=== PATIENT | female | born 1960 | race Caucasian/White ===

== ENCOUNTER 2022-09-08 10:53 | Outpatient (OUT) | payer OTHER, SELFPAY ==
--- NOTE | 2022-09-08 11:23 | XR_ITS ---
The [address] [address] Patient Name: SIXTO RICH MRN: [id number] date: 1960 Sex: F Assigned Patient Location: LAB Current Patient Location: LAB Accession/Order Number: [id number] Exam Date: 09/08/2022 11:25 Report Date: 09/09/2022 23:39 At the request of: SHAIKH CIARA Procedure: XR lumbar spine min 4V EXAM: XR lumbar spine min 4V HISTORY: LUMBAR STENOSIS COMPARISON: None. TECHNIQUE: 5 view study FINDINGS: Vertebral bodies are normal in height. There is disc space narrowing at L3-L4, L4-L5, and L5-S1. Mild disc space narrowing at L2-L3. Associated anterior osteophytosis at L5-S1. Facet arthropathy is noted at L3-L4, L4-L5, and L5-S1. Aortoiliac calcifications are noted. XR/XR lumbar spine min 4V IMPRESSION: Multilevel lumbar spondylosis. Electronically authenticated by: Penny EWING Date: 09/09/2022 23:39
[2022-09-08 13:11] LABS: Chol HDL Ratio 3.8; Cholesterol 144 mg/dL (<=200); HDL Cholesterol 38 mg/dL (40-60); Triglycerides 197 mg/dL (<=150); VLDL CHOLESTEROL 39.4 mg/dL
== END 2022-09-08 10:54 | disposition home or self-care (01) ==
PROVIDERS: PCP Internal Medicine; Visit Provider Internal Medicine
DX: E78.5 Hyperlipidemia, unspecified (principal); M48.062 Spinal stenosis, lumbar region with neurogenic claudication; M47.816 Spondylosis without myelopathy or radiculopathy, lumbar region
CPT/HCPCS: 36415; 72110; 80061

== ENCOUNTER 2023-01-19 10:48 | Outpatient (OUT) | payer OTHER, SELFPAY ==
[2023-01-19 11:26] LABS: Bilirubin Urine NEGATIVE (NEGATIVE); Blood Urine TRACE-L (NEGATIVE); Clarity Urine CLEAR (CLEAR); Color Urine LT. YELLOW (YELLOW); Glucose Urine UA NEGATIVE (NEGATIVE); Ketones Urine NEGATIVE (NEGATIVE); Leukocyte Esterase Urine TRACE (NEGATIVE); Nitrite Urine POSITIVE (NEGATIVE); Protein Urine NEGATIVE (NEG/TRACE); Specific Gravity Urine 1.015 (1.005-1.025); Urobilinogen Urine 0.2 EU/dL (0.2-1.0)
[2023-01-19 11:44] LABS: Creatinine Urine Random 61.18 mg/dL (20.00-300.00)
[2023-01-19 12:02] LABS: Basophils Absolute Auto 0.1 10^3/uL (0.0-0.1); Basophils Percent Auto 1.6 % (0.2-2.0); Eosinophils Absolute Auto 0.1 10^3/uL (0.0-0.7); Eosinophils Percent Auto 1.9 % (0.9-7.0); Hematocrit 48.7 % (36.0-48.0); Hemoglobin 15.9 g/dL (12.0-16.0); Immature Granulocytes Abs Auto 0.03 10^3/uL (0.00-0.03); Immature Granulocytes Pct Auto 0.4 % (0.0-0.5); Lymphocytes Absolute Auto 2.1 10^3/uL (1.2-3.8); Mean Corpuscular HGB Conc 32.6 g/dL (29.9-35.2); Mean Corpuscular Hemoglobin 30.5 pg (26.7-34.0); Mean Corpuscular Volume 93.3 fL (81.0-99.0); Mean Platelet Volume 10.3 fL (9.5-13.5); Monocytes Absolute Auto 0.6 10^3/uL (0.3-0.8); Monocytes Percent Auto 7.8 % (1.7-12.0); Neutrophils Absolute Auto 4.5 10^3/uL (1.4-6.5); Neutrophils Percent Auto 60.3 % (43.0-75.0); Platelet Count 216 10^3/uL (150-450); Red Blood Count 5.22 10^6/uL (4.20-5.40); Red Cell Distribution Width 13.3 % (11.0-15.0); White Blood Count 7.4 10^3/uL (4.0-11.0)
[2023-01-19 12:41] LABS: Albumin Level 3.9 g/dL (3.4-5.0); Calcium 9.5 mg/dL (8.5-10.1); Carbon Dioxide 24.3 mmol/L (21.0-32.0); Chloride 105 mmol/L (98-107); Estimated GFR (African America 47 (>=60); Estimated GFR (Non-African Ame 39 (>=60); Glucose 94 mg/dL (74-106); Magnesium 1.7 mg/dL (1.8-2.4); Phosphorus 3.3 mg/dL (2.6-4.7); Potassium 4.3 mmol/L (3.5-5.1); Sodium 142 mmol/L (136-145)
[2023-01-21 09:14] LABS: PTH, Intact 57 pg/mL (15-65)
== END 2023-01-19 10:49 | disposition home or self-care (01) ==
LOC: LAB 10:52
PROVIDERS: PCP Internal Medicine
DX: E55.9 Vitamin D deficiency, unspecified (principal); N17.9 Acute kidney failure, unspecified
CPT/HCPCS: 36415; 80048; 81003; 82042; 82043; 82306; 82570; 83735; 83970; 84100; 85025

== ENCOUNTER 2023-02-11 23:56 | Emergency (ER) | payer OTHER, SELFPAY ==
[2023-02-12] VITALS (41 sets, daily range): BP systolic 84–122; BP diastolic 63–88; PULSE 76–155; RESP 13–32; TEMP 36.7–36.8; O2SAT 87–99
--- NOTE | 2023-02-12 00:30 | ED.SOB1 ---
HPI - SOB/Dyspnea General Chief Complaint: Shortness of Breath/Dyspnea Stated Complaint: SOB Time Seen by Provider: 02/12/23 00:26 Source: patient Mode of arrival: Wheelchair Limitations: no limitations History of Present Illness HPI Narrative: history of COPD and CKD . seen at [facility] yesterday for shortness of breath. Now presents here complaining of shortness of breath. Denies chest pain but points to her epigastric area and states it feels tight when she has to cough. No vomiting . Cough productive of thick yellow-green phlegm . Arrives in the ER with shortness of breath and RA pulse ox 87% MD elicited complaint: shortness of breath and cough Pertinent past history: COPD Related Data Allergies Allergy/AdvReac Type Severity Reaction Status Date / Time codeine Allergy Verified 02/12/23 00:05 Review of Systems ROS Status of ROS 10 or more systems reviewed and unremarkable except as noted in history and below PFSH PFS Social History Smoking status: Current every day smoker Exam Constitutional Vital Signs, click to edit/add: Last Vital Signs Temp 98.1 F 02/12/23 03:56 Pulse 98 H 02/12/23 03:56 Resp 20 02/12/23 03:56 BP 122/72 02/12/23 03:56 Pulse Ox 94 L 02/12/23 03:56 O2 Del Method Nasal Cannula 02/12/23 02:07 O2 Flow Rate 3 02/12/23 02:07 Common normals: oriented x3 General appearance: in distress HENMT Common normals: normocephalic and head/scalp atraumatic Eye Common normals: PERRL, EOMs intact bilaterally and conjunctivae normal Respiratory Effort & inspection: respiratory distress and audible wheezes Cardio Common normals: regular rate and regular rhythm Rate: tachycardic GI Common normals: Normal to inspection, nondistended, normoactive bowel sounds present, soft to palpation and non-tender Extremity Common normals: normal to inspection and full ROM Neuro Common normals: oriented x3, CN's II-XII intact bilaterally, moves all extremities and no focal motor deficits Psych Appearance: grossly normal Course Vital Signs Vital signs: Vital Signs Temperature 98.2 F 02/12/23 00:02 Pulse Rate 102 H 02/12/23 00:02 Respiratory Rate 28 H 02/12/23 00:02 Blood Pressure 118/88 02/12/23 00:02 Pulse Oximetry 87 L 02/12/23 00:02 Oxygen Delivery Method Room Air 02/12/23 00:02 Temperature 98.1 F 02/12/23 03:56 Pulse Rate 98 H 02/12/23 03:56 Respiratory Rate 20 02/12/23 03:56 Blood Pressure 122/72 02/12/23 03:56 Pulse Oximetry 94 L 02/12/23 03:56 Oxygen Delivery Method Nasal Cannula 02/12/23 02:07 Oxygen Delivery Flow Rate 3 02/12/23 02:07 MDM - SOB/Dyspnea MDM Narrative Medical decision making narrative: patient history of COPD. still smoking. Seen at [facility] yesterday for acute dyspnea. Now presents here with acute dyspnea and pulse ox RA 87%. Chest with diffuse wheeze. Labs reveal elevated troponin. 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 nasal swab positive for Rhino/entero virus. Cxray with findings of COPD. Patient breathing a little easier after duoneb x 2 and solumedrol. EKG with mild ST depression II, III, aVF, V4-6. Discussed with Hospitalist at [facility] and patient accepted in transfer Lab Data Labs: Lab Results 02/12/23 02/12/23 Range/Units 00:39 01:20 WBC 13.9 H (4.0-11.0) 10^3/uL RBC 5.49 H (4.20-5.40) 10^6/uL Hgb 16.6 H (12.0-16.0) g/dL Hct 50.8 H (36.0-48.0) % MCV 92.5 (81.0-99.0) fL MCH 30.2 (26.7-34.0) pg MCHC 32.7 (29.9-35.2) g/dL RDW 13.4 (11.0-15.0) % Plt Count 260 (150-450) 10^3/uL MPV 9.7 (9.5-13.5) fL Neut % (Auto) 71.7 (43.0-75.0) % Lymph % (Auto) 15.7 L (20.5-60.0) % [place] % (Auto) 11.7 (1.7-12.0) % Eos % (Auto) 0.1 L (0.9-7.0) % Baso % (Auto) 0.4 (0.2-2.0) % Neut # (Auto) 10.0 H (1.4-6.5) 10^3/uL Lymph # (Auto) 2.2 (1.2-3.8) 10^3/uL [place] # (Auto) 1.6 H (0.3-0.8) 10^3/uL Eos # (Auto) 0.0 (0.0-0.7) 10^3/uL Baso # (Auto) 0.1 (0.0-0.1) 10^3/uL Abs Immat Gran (auto) 0.05 H (0.00-0.03) 10^3/uL Imm/Tot Granulo (auto) 0.4 (0.0-0.5) % Sodium 139 (136-145) mmol/L Potassium 4.7 (3.5-5.1) mmol/L Chloride 103 (98-107) mmol/L Carbon Dioxide 28.9 (21.0-32.0) mmol/L Anion Gap 11.8 BUN 29.0 H (7.0-18.0) mg/dL Creatinine 1.48 H (0.55-1.02) mg/dL Est GFR ( Amer) 44 L (>=60) Est GFR (Non-Af Amer) 36 L (>=60) BUN/Creatinine Ratio 19.6 Glucose 117 H (74-106) mg/dL Calcium 10.3 H (8.5-10.1) mg/dL Total Bilirubin 0.6 (0.2-1.0) mg/dL AST 30 (15-37) U/L ALT 32 (14-59) U/L Alkaline Phosphatase 81 (46-116) U/L Troponin I High Sens 87.4 H* (4.0-51.3) pg/mL Total Protein 7.9 (6.4-8.2) g/dL Albumin 3.9 (3.4-5.0) g/dL Globulin 4.0 g/dL Albumin/Globulin Ratio 1.0 Lipase 30.0 (16.0-77.0) U/L Adenovirus (PCR) Not detected (NOT DETECTE) C. pneumoniae DNA (PCR) Not detected (NOT DETECTE) Coronavirus Type OC43 Not detected (NOT DETECTE) Coronavirus Type HKU1 Not detected (NOT DETECTE) Coronavirus Type 229E Not detected (NOT DETECTE) Coronavirus Type NL63 Not detected (NOT DETECTE) Human Metapneumovir PCR Not detected (NOT DETECTE) M. pneumoniae (PCR) Not detected (NOT DETECTE) Parainfluenza PCR Not detected (NOT DETECTE) Parainfluenza 2 (PCR) Not detected (NOT DETECTE) Parainfluenza 3 (PCR) Not detected (NOT DETECTE) Parainfluenza 4 (PCR) Not detected (NOT DETECTE) RSV (RT-PCR) Not detected (NOT DETECTE) Entero/Rhino (PCR) Detected A (NOT DETECTE) SARS-CoV-2 (PCR) Not detected (NOT DETECTE) Bordetella pertussis (PCR) Not detected (NOT DETECTE) B parapertussis DNA PCR Not detected (NOT DETECTE) Influenza Type A (PCR) Not detected (NOT DETECTE) Influenza Type B (PCR) Not detected (NOT DETECTE) Imaging Data Chest x-ray: Radiologist's impression: /Order Number: [id number] Exam Date: 02/12/2023 01:01 Report Date: 02/12/2023 02:43 At the request of: ARI VICTORIA Procedure: XR chest 1V CHEST X-RAY, 1 VIEW HISTORY: Shortness of breath. COMPARISON: 02/19/2022. FINDINGS: The heart, kelly, and mediastinum are unremarkable. The lungs are grossly clear. The lungs are hyperinflated. There are no pleural effusions. There is no pneumothorax. XR/XR chest 1V IMPRESSION: No evidence of acute cardiopulmonary disease. Findings suggestive of COPD. Discharge Plan Discharge Chief Complaint: Shortness of Breath/Dyspnea Clinical Impression: Elevated troponin, Acute exacerbation of chronic obstructive pulmonary disease Patient Disposition: General Acute Hospital Discharge Location: [facility]
--- NOTE | 2023-02-12 00:34 | ECG_ITS ---
The [facility] Test Date: 2023-02-12 Pat Name: SIXTO RICH Department: Room: - Gender: Female [employer]: : 1960 Requested By: SHAIKH CIARA Order Number: [id number] Reading MD: DADA ORTEGA Measurements Intervals Wilsey Rate: 84 P: 73 WA: 134 QRS: 82 QRSD: 76 T: 65 QT: 392 QTc: 433 Interpretive Statements 1100 Sinus rhythm [address] depression, can't exclude inferolateral ischemia 9150 abnormal ECG No previous ECG available for comparison Electronically Signed On 02-12-2023 7:11:41 EST by DADA ORTEGA
--- NOTE | 2023-02-12 00:34 | XR_ITS ---
The [address] [address] Patient Name: SIXTO RICH MRN: [id number] date: 1960 Sex: F Assigned Patient Location: ER Current Patient Location: ER Accession/Order Number: [id number] Exam Date: 02/12/2023 01:01 Report Date: 02/12/2023 02:43 At the request of: ARI VICTORIA Procedure: XR chest 1V CHEST X-RAY, 1 VIEW HISTORY: Shortness of breath. COMPARISON: 02/19/2022. FINDINGS: The heart, kelly, and mediastinum are unremarkable. The lungs are grossly clear. The lungs are hyperinflated. There are no pleural effusions. There is no pneumothorax. XR/XR chest 1V IMPRESSION: No evidence of acute cardiopulmonary disease. Findings suggestive of COPD. Electronically authenticated by: YVONNE BARROW Date: 02/12/2023 02:43
[2023-02-12] MEDS: IPRATROPIUM/ALBUTEROL SULFATE 3 ML AMPUL.NEB IH ×2 (00:51→01:56)
[2023-02-12 00:57] LABS: Basophils Absolute Auto 0.1 10^3/uL (0.0-0.1); Basophils Percent Auto 0.4 % (0.2-2.0); Eosinophils Percent Auto 0.1 % (0.9-7.0); Hematocrit 50.8 % (36.0-48.0); Hemoglobin 16.6 g/dL (12.0-16.0); Immature Granulocytes Abs Auto 0.05 10^3/uL (0.00-0.03); Immature Granulocytes Pct Auto 0.4 % (0.0-0.5); Lymphocytes Absolute Auto 2.2 10^3/uL (1.2-3.8); Lymphocytes Percent Auto 15.7 % (20.5-60.0); Mean Corpuscular HGB Conc 32.7 g/dL (29.9-35.2); Mean Corpuscular Hemoglobin 30.2 pg (26.7-34.0); Mean Corpuscular Volume 92.5 fL (81.0-99.0); Mean Platelet Volume 9.7 fL (9.5-13.5); Monocytes Absolute Auto 1.6 10^3/uL (0.3-0.8); Monocytes Percent Auto 11.7 % (1.7-12.0); Neutrophils Percent Auto 71.7 % (43.0-75.0); Platelet Count 260 10^3/uL (150-450); Red Blood Count 5.49 10^6/uL (4.20-5.40); Red Cell Distribution Width 13.4 % (11.0-15.0); White Blood Count 13.9 10^3/uL (4.0-11.0)
[2023-02-12] MEDS: METHYLPREDNISOLONE SOD SUCC PF 125 MG/2 ML VIAL IVP (01:07)
[2023-02-12 01:22] LABS: Alanine Aminotransferase 32 U/L (14-59); Albumin Level 3.9 g/dL (3.4-5.0); Alkaline Phosphatase 81 U/L (46-116); Anion Gap 11.8; Aspartate Amino Transferase 30 U/L (15-37); BUN Creatinine Ratio 19.6; Bilirubin Total 0.6 mg/dL (0.2-1.0); Calcium 10.3 mg/dL (8.5-10.1); Carbon Dioxide 28.9 mmol/L (21.0-32.0); Chloride 103 mmol/L (98-107); Estimated GFR (African America 44 (>=60); Estimated GFR (Non-African Ame 36 (>=60); Glucose 117 mg/dL (74-106); Potassium 4.7 mmol/L (3.5-5.1); Sodium 139 mmol/L (136-145); Total Protein 7.9 g/dL (6.4-8.2)
[2023-02-12 01:25] LABS: Troponin I High Sensitivity 87.4 pg/mL (4.0-51.3)
[2023-02-12 01:26] LABS: Adenovirus NOT DETECTED (NOT DETECTE); Bordetella parapertussis NOT DETECTED (NOT DETECTE); Coronavirus 229E NOT DETECTED (NOT DETECTE); Coronavirus HKU1 NOT DETECTED (NOT DETECTE); Coronavirus NL63 NOT DETECTED (NOT DETECTE); Coronavirus OC43 NOT DETECTED (NOT DETECTE); Human Metapneumovirus NOT DETECTED (NOT DETECTE); Influenza A NOT DETECTED (NOT DETECTE); Influenza B NOT DETECTED (NOT DETECTE); Mycoplasma pneumoniae NOT DETECTED (NOT DETECTE); Parainfluenza Virus 1 NOT DETECTED (NOT DETECTE); Parainfluenza Virus 2 NOT DETECTED (NOT DETECTE); Parainfluenza Virus 3 NOT DETECTED (NOT DETECTE); Parainfluenza Virus 4 NOT DETECTED (NOT DETECTE); Respiratory Syncytial Virus NOT DETECTED (NOT DETECTE); SARS-CoV-2 NOT DETECTED (NOT DETECTE)
[2023-02-12 02:19] LABS: Human Rhinovirus/Enterovirus DETECTED (NOT DETECTE)
== END 2023-02-12 05:32 | disposition short-term general hospital (02) ==
PROVIDERS: Emergency Provider Internal Medicine; PCP Internal Medicine
DX: J44.1 Chronic obstructive pulmonary disease with (acute) exacerbation (principal); R79.89 Other specified abnormal findings of blood chemistry; F17.200 Nicotine dependence, unspecified, uncomplicated; B34.8 Other viral infections of unspecified site
CPT/HCPCS: 0202U; 36415; 71045; 80053; 83690; 84484; 85025; 87070; 93005; 94640; 96374; 99285; J2930

== ENCOUNTER 2023-02-19 17:56 | Outpatient (OUT) | payer OTHER, SELFPAY ==
--- OUTSIDE RECORDS SUMMARY | 2023-02-19 18:00 | XMS_ITS | CCD ---
Author Name Unknown Address [address] [place] [address] Organization [facility] Care Team Providers [facility] 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 Name Role Phone Unavailable Primary Care Provider Unavailabl e ALEXANDR AMIN S Referring Unavailable NO FAMILY, PHYSICIAN Primary Care Provider Unava ilMD Alaina Fernandez Admit Provider MD Marquez Beal Referring Provider DO Rober Wyatt Other Provider DO Ricky Reynoso Attending Provider [phone] [facility] Janet Attending Provider [phone] DARVIN Byrne Attending Provider Linn Byrne Unavailable Shaikh Thompson Unavailable Unavailable Unavailable MD Nick Thompson Primary Care Provider MD Marquez Beal Attending Provider Emigdio PINON, Dr. Marquez Jennings Referring Unavailable McGuinn II, Dr. Marquez Jennings Attending Unavailable McGuinn II, Dr. Marquez Jennings Referring Unavailable McGuinn II, Dr. Marquez Jennings Attending Unavailable McGuinn II, Marquez Jennings Attending Unav ailable McGuinn II, Marquez Jennings Attending Unav ailable Newman, Dr. Jaycob Armenta Referring Neelam vailable Newman, Dr. Jaycob Armenta Attending Neelam vailable McGuinn II, Marquez Jennings Attending Unav ailable McGuinn II, Marquez Jennings Attending Unav ailable McGuinn II, Marquez Jennings Referring Unav ailable McGuinn II, Marquez Jennings Attending Unav ailable McGuinn II, Marquez Jennings Referring Unav ailable McGuinn II, Marquez Jennings Attending Unav ailable McGuinn II, Marquez Jennings Attending Unav ailable McGuinn II, Marquez Jennings Referring Unav ailable McGuinn II, Marquez Jennings Attending Unav ailable MD Nick Thompson Primary Care Provider MD Kevyn Deras Attending Provider CHARLEE THOMPSONIKH Primary Care Physician Padmini Sam Unavailable Kevyn Deras Unavailable [phone] FAWWAD, DUNBAR H Admitting Unavailable FAWWAD, DUNBAR H Attending Unavailable FAWWAD, DUNBAR H Primary Care Unavailable FAWWAD, DUNBAR H Consulting Unavailable FAWWAD, DUNBAR H Admitting Unavailable FAWWAD, DUNBAR H Attending Unavailable FAWWAD, DUNBAR H Primary Care Unavailable SHERI, DR CHRISTIANO Young Consulting Unavailable FAWWAD, DUNBAR H Consulting Unavailable KARASIK ., DR PARK Admitting Unavailabl e KARASIK ., DR PARK Attending Unavailabl e FAWWAD, DUNBAR H Primary Care Unavailable KARASIK ., DR PARK Consulting Unavailabl e FAWWAD, DUNBAR H Admitting Unavailable FAWWAD, DUNBAR H Attending Unavailable FAWWAD, DUNBAR H Primary Care Unavailable EMIGDIO, DR SINGH Admitting Unavailable ANTONIOUINN, DR SINGH Attending Unavailable FASONIA, DUNBAR H Primary Care Unavailable GROVES ., DR JENNINGS Consulting Unavailable EMIGDIO, DR SINGH Consulting Unavailable ERNESTOD, DUNBAR H Primary Care Unavailable PAY ., DR ESCOBEDO Admitting Unavailable PAY ., DR ESCOBEDO Attending Unavailable PAY ., DR ESCOBEDO Consulting Unavailable AMY ROSS Consulting Unavailable JUWAN, DR CHRISTOPHER Young Admitting Unavailable JUWAN, DR CHRISTOPHER Young Attending Unavailable REQUEST, DR JOSE LISTED Primary Care Unavailkamini GUIDRY, DR CHRISTOPHER Young Consulting Unavailable GM ., DR CLEANING Consulting Unavailable GIOVANA MANN Consulting Unavailable FALVO, MAVIS Consulting Unavailable FAWWAD, DUNBAR H Admitting Unavailable FAWWAD, DUNBAR H Attending Unavailable FAWWAD, DUNBAR H Primary Care Unavailable FAWWAD, DUNBAR H Consulting Unavailable Fawdadad MD [facility] Primary Care Provider [phone] SHARAKOVA, DEBRA Referring Unavailable FAWWAD, DUNBAR Primary Care Unavailable SHARAKOVA, DEBRA Referring Unavailable FAWWAD, [facility] Primary Care Unavailable Unavailable Unavailable GUI, GURMEET Attending Unavailable FAWWAD, DUNBAR Primary Care Unavailable GUI, GURMEET Attending Unavailable FAWWAD, DUNBAR Referring Unavailable FAWWAD, DUNBAR Primary Care Unavailable FAWWAD, [facility] Primary Care Unavailable Damion Cheek Attending Unavailable Jaxson Johnson Attending Unavailable Jamie BILLS Attending Unavailable FAWWAD, DUNBAR Primary Care Unavailable FAWWAD, DUNBAR Referring Unavailable FAWWAD, [facility] Primary Care Unavailable NGUYỄNTRUDY GAINES E Attending Unavailable FAWNVD, [facility] Primary Care Unavailable NGUYỄN TRUDY E Attending Unavailable FAWWAD, [facility] Primary Care Unavailable FAWWAD, DUNBAR Primary Care Unavailable NGUYỄN TRUDY E Attending Unavailable NGUYỄN, TRUDY E Attending Unavailable FAWNVD, [facility] Primary Care Unavailable NGUYỄN, TRUDY E Attending Unavailable FAWWAD, [facility] Primary Care Unavailable NGUYỄN, TRUDY E Attending Unavailable FAWNVD, [facility] Primary Care Unavailable Bj TEJEDA Attending Unavailable FAWNVD, [facility] Primary Care Unavailable NGUYỄN, TRUDY E Attending Unavailable NGUYỄN, TRUDY E Attending Unavailable FAWWAD, [facility] Primary Care Unavailable Xavier STAFFORD Referring Unavailable Jaxson Johnson Admitting Unavailable Jaxson Johnson Attending Unavailable FAWNVD, DUNBAR Primary Care Unavailable Damion Cheek Admitting Unavailable Damion Cheek Attending Unavailable Gabby De Oliveira Attending Unavailable MD Charlee Thompsonikh Primary Care Provider MD Jacques East Admit Provider MD Jacques East Attending Provider Kevyn Deras Admitting UnavailKevyn Gold Attending UnavailShaikh Major Primary Care Unavailable Jacques East Admitting Unavailable Jacques East Attending Unavailable Shaikh Thompson Primary Care Unavailable Allergies Allergy Classification Reported Allergen(s) Allergy Type Date of Onset Reaction(s) Facility (18 sources) Codeine; Translations: [CODEINE] Drug Allergy 09-06-2014 Swelling, Swelling (finding) [facility] Medications Current Medications Medication Drug Class(es) Dates Sig (Normalized) Sig (Original) albuterol 0.83 mg/ml inhalation solution (19 sources) beta2-Adrenergic Agonist Start: 02-14-2023 take 2.5 mg by inhalation every three hours Albuterol Sulfate Active 2.5 MG INHALATION Q3H February 14, 2023 12:00am Start: 02-14-2023 Albuterol Sulf ate Active 1 INH INHALATION Q6H February 14, 2023 12:00am Start: 06-18-2022 VENTOLIN HFA 9 0 mcg/actuation inhaler Start: 04-05-2022 Pro-Air HFA CF C free 90 mcg/inh MDI Refill(s) 0 Start Date: 04/05/22 Status: Ordered amoxicillin 500 mg oral capsule (2 sources) Penicillin-class Antibacterial Start: 03-19-2022 take 1 capsule by mouth every eight hours Amoxicillin 500 MG 1 capsule Orally three times a day for 10 day(s) Feb, Active Aspirin (20 sources) Platelet Aggregation Inhibitor, Nonsteroidal Anti-inflammatory Drug Start: 04-05-2022 [facility] 81 MG TABLET [facility] ASP[facility]IN EC 81 MG TABLET Start Date: 04/05/22 Status: Ordered Start: 08-17-2021 take 81 mg by mouth once daily Aspirin Active 81 MG PO Daily August 16, 2021 11:00pm Comment on above: 81 mg. atorvastatin (20 sources) HMG-CoA Reductase Inhibitor Start: 05-23-2022 atorvastatin Oral, Daily Start Date: 05/23/22 Status: Ordered Start: 08-17-2021 take 40 mg by mouth once daily in the evening Atorvastatin Active 40 MG PO Every evening August 16, 2021 11:00pm cefdinir 300 mg oral capsule (4 sources) Cephalosporin Antibacterial Start: 02-14-2023 take 300 mg by mouth twice daily Cefdinir Active 300 MG PO Twice daily 11 22February 14, 2023 12:00am Start: 02-10-2023 End: 02-17-2023 take 1 capsule by mouth every twelve hours cefdinir 300 mg Cap 300 mg = 1 cap(s), Oral, q12hr, X 7 day(s), # 14 cap(s), Refills(s) 0, Pharmacy: [facility]/pharmacy #[id number], 163, cm, 02/10/23 14:52:00 EST, Height/Length Dosing, 70, kg, 02/10/23 14:52:00 EST, Weight Dosing Start Date: 02/10/23 Stop Date: 02/17/23 Status: Ordered cephalexin 500 mg oral capsule (7 sources) Cephalosporin Antibacterial Start: 10-15-2022 End: 10-22-2022 take 1 capsule by mouth three times daily Keflex 500 mg Cap 500 mg = 1 cap(s), Oral, TID, X 7 day(s), # 21 cap(s), Refills(s) 0, Pharmacy: [facility]/pharmacy #[id number], 163, cm, 10/15/22 17:40:00 EDT, Height/Length Dosing, 72.3, kg, 10/15/22 17:40:00 EDT, Weight Dosing Start Date: 10/15/22 Stop Date: 10/22/22 Status: Ordered Start: 08-17-2021 End: 03-13-2022 take 500 mg by mouth four times daily Cephalexin Discontinued 500 MG PO Four times daily 01 20August 16, 2021 11:00pm March 13, 2022 8:07am docusate sodium 100 mg oral capsule (1 source) Start: 02-14-2023 take 100 mg by mouth twice daily Docusate Sodium Active 100 MG PO Twice daily February 14, 2023 12:00am doxycycline hyclate 100 mg oral capsule (1 source) Tetracycline-class Drug Start: 02-14-2023 take 100 mg by mouth twice daily Doxycycline Hyclate Active 100 MG PO Twice daily 11 22February 14, 2023 12:00am fluticasone propionate 0.05 mg/actuat metered dose nasal spray (2 sources) Corticosteroid Start: 03-19-2022 take 2 spray(s) nasal route once daily Fluticasone Propionate 50 MCG/ACT 2 sprays Nasally Once a day for 14 day(s) Feb, Active 12 hr guaiFENesin 600 mg extended release oral tablet (1 source) Start: 02-14-2023 take 2 tablets by mouth twice daily, then take 1 tablet by mouth every twelve hours Guaifenesin (Mucinex) 600 mg Tablet Extended Release 12hr Active 1200 MG PO Twice daily February 14, 2023 12:00am lisinopril 20 mg oral tablet (20 sources) Angiotensin Converting Enzyme Inhibitor Start: 02-12-2023 take 20 mg by mouth once daily Lisinopril Active 20 MG PO Daily February 12, 2023 12:00am Start: 10-09-2022 End: 10-04-2023 take 1 tablet by mouth once daily lisinopril (ZESTRIL) 5 mg tablet Indications: Stage 3 chronic kidney disease, unspecified whether stage 3a or 3b CKD (HCC) Take 1 tablet by mouth once daily. 90 tablet 3 10/09/2022 10/29/2022 Discontinued Start: 08-09-2022 End: 10-24-2023 take 1 tablet by mouth once daily lisinopril (ZESTRIL) 10 mg tablet Indications: Stage 3 chronic kidney disease, unspecified whether stage 3a or 3b CKD (HCC) Take 1 tablet by mouth once daily. 90 tablet 3 10/29/2022 10/24/2023 Active Start: 04-11-2022 lisinopril Ref ills(s) 0 Start Date: 04/11/22 Status: Ordered Lisinopril Activ e Comment on above: Take 1 tablet by starr once daily. 24 hr metoprolol succinate 100 mg extended release oral tablet (20 sources) beta-Adrenergic Mitch Start: 08-17-2021 take 100 mg by mouth once daily Metoprolol Succinate Active 100 MG PO Daily August 16, 2021 11:00pm Comment on above: Take 100 mg by mouth . omeprazole 40 mg delayed release oral capsule (13 sources) Proton Pump Inhibitor Start: 06-14-2022 take 1 capsule by mouth once daily omeprazole 40 mg Cap-DR 40 mg = 1 cap(s), Oral, Daily, # 30 cap(s), Refills(s) 2, Pharmacy: [facility] [id number], 163, cm, 06/14/22 13:00:00 EDT, Height/Length Dosing, 74.3, kg, 06/14/22 13:00:00 EDT, Weight Dosing Start Date: 06/14/22 Status: Ordered Start: 08-17-2021 End: 03-13-2022 take 20 mg by mouth once daily Omeprazole Discontinued 20 MG PO Daily August 16, 2021 11:00pm March 13, 2022 8:07am predniSONE 10 mg oral tablet (6 sources) Start: 02-14-2023 Prednisone Act jessica 10 MG PO As Directed February 14, 2023 12:00am see taper instructions Take 40 mg (4 tabs) for 3 days then Take 20 mg ( 2 tabs) for 3 days then Take 10 mg ( 1 tab) for 3 days to finish Start: 02-10-2023 End: 02-15-2023 take 3 tablets by mouth once daily predniSONE 20 mg Tab 60 mg = 3 tab(s), Oral, Daily, X 5 day(s), # 15 tab(s), Refills(s) 0, Pharmacy: [facility]/pharmacy #[id number], 163, cm, 02/10/23 14:52:00 EST, Height/Length Dosing, 70, kg, 02/10/23 14:52:00 EST, Weight Dosing Start Date: 02/10/23 Stop Date: 02/15/23 Status: Ordered Start: 03-19-2022 take 1 tablet by starr th every twelve hours predniSONE 20 MG 1 tablet Orally 2 times a day for 5 day(s) Feb, Active Completed/Discontinued Medications Medication Drug Class(es) Dates Sig (Normalized) Sig (Original) amLODIPine 10 mg oral tablet (16 sources) Dihydropyridine Calcium Channel Mitch Start: 2 End: 3 take 10 mg by mouth once daily Amlodipine Discontinued 10 MG PO Daily August 16, 2021 11:00pm March 13, 2022 8:07am cefTRIAXone (3 sources) Cephalosporin Antibacterial Start: 0 Rocephin 500 mg Jan, 500 mg hydroCHLOROthiazide 12.5 mg / lisinopril 10 mg oral tablet (13 sources) Thiazide Diuretic, Angiotensin Converting Enzyme Inhibitor Start: 3 End: 3 lisinopril-hydro CHLOROthiazide (ZESTORETIC) 10-12.5 mg per tablet lisinopril Refills(s) 0 Start Date: 04/11/22 Status: Ordered 0 04/11/2022 08/09/2022 Discontinued Start: 09-18-2021 End: 02-12-2023 take 1 tablet by mouth once daily Lisinopril-Hydrochlorothiazide Discontin ued 1 TAB PO Daily March 13, 2022 12:00am February 12, 2023 6:47am Comment on above: lisinopril Refills(s ) 0 Start Date: 04/11/22 Status: Ordered potassium chloride 10 meq extended release oral tablet (5 sources) Start: 08-18-19 End: 03-13-19 take 10 mEq by mouth twice daily Potassium Chloride Discontinued 10 MEQ PO Twice daily 14 August 16, 2021 11:00pm March 13, 2022 8:07am spironolactone 25 mg oral tablet (10 sources) Aldosterone Antagonist Start: 08-18-19 End: 03-13-19 take 25 mg by mouth once daily Spironolactone Discontinued 25 MG PO Daily 30 August 16, 2021 11:00pm March 13, 2022 8:08am Triamcinolone (3 sources) Corticosteroid Start: 07-31-19 15 KENALOG - 10 mg Jul, 60 mg Problems Active Problems Problem Classification Problem Date Documented Da te Episodic/Chronic Acute cerebrovascular disease (20 sources) Embolic stroke; Translations: [Cerebral infarction, unspecified] Onset: 2 Resolved: 3 08-16-2021 Chronic Chronic kidney disease (16 sources) Chronic kidney disease stage 3B ; Translations: [Stage 3b chronic kidney disease (HCC)] Onset: 3 Chronic Chronic kidney disease (4 sources) Chronic kidney disease; Translations: [Stage 3b chronic kidney disease (HCC)] Onset: 3 Chronic obstructive pulmonary disease and bronchiectasis (4 sources) Unspecified chronic bronchitis; Translations: [UNSPECIFIED CHRONIC BRONCHITIS] Onset: 3 Chronic Chronic obstructive pulmonary disease and bronchiectasis (2 sources) Bronchitis, not specified as acute or chronic; Translations: [Bronchitis] Onset: 3 Episodic Disorders of lipid metabolism (20 sources) Hyperlipidemia; Translations: [Hyperlipidemia, unspecified] Onset: 5 08-17-2021 Chronic Esophageal disorders (7 sources) Gastroesophageal reflux disease without esophagitis; Translations: [Gastro-esophageal reflux disease without esophagitis] Onset: 3 Chronic Essential hypertension (20 sources) Essential hypertension; Translations: [Essential (primary) hypertension] Onset: 2 Resolved: 3 08-17-2021 Chronic Genitourinary symptoms and ill-defined conditions (13 sources) Stress incontinence (female) (male); Translations: [Female stress incontinence] Onset: 3 Chronic Hypertension with complications and secondary hypertension (20 sources) Hypertensive urgency ; Translations: [Hypertensive urgency] Onset: 3 08-15-2021 Chronic Nephritis; nephrosis; renal sclerosis (8 sources) Atrophy of kidney; 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)] Onset: 3 10-09-2022 Chronic Nonspecific chest pain (12 sources) Chest discomfort; Translations: [Other chest pain] Onset: 2 Episodic Other and unspecified benign neoplasm (4 sources) History of polyp of colon; Translations: [Personal history of colonic polyps] 03-13-2022 Episodic Other circulatory disease (7 sources) Orthostatic hypotension; Translations: [Orthostatic hypotension] Episodic Other circulatory disease (1 source) Orthostatic hypotension; Translations: [Orthostatic hypotension] Onset: 3 Episodic Other circulatory disease (1 source) Disorder of respiratory system; Translations: [Other specified symptoms and signs involving the circulatory and respiratory systems] Onset: 3 Episodic Other gastrointestinal disorders (14 sources) Dysphagia; Translations: [Dysphagia, unspecified] Onset: 3 Episodic Other hematologic conditions (14 sources) Raised cardiac enzyme or marker; Translations: [Other specified abnormalities of plasma proteins] 08-13-2021 Episodic Other lower respiratory disease (1 source) Hypoxemia; Translations: [Hypoxemia] Onset: 3 Episodic Other lower respiratory disease (1 source) Orthopnea; Translations: [Orthopnea] Onset: 3 Episodic Other lower respiratory disease (1 source) Dyspnea; Translations: [Shortness of breath] 02-12-2023 Episodic Other lower respiratory disease (1 source) Shortness of breath; Translations: [Shortness of breath] 02-14-2023 Episodic Other lower respiratory disease (1 source) Shortness of breath; Translations: [Shortness of breath] Onset: 3 Episodic Other nutritional; endocrine; and metabolic disorders (20 sources) Overweight in adulthood with body mass index of 25 or more but less than 30; Translations: [Overweight] Onset: 3 Resolved: 2 Episodic Other screening for suspected conditions (not mental disorders or infectious disease) (20 sources) Patient encounter status; Translations: [Encounter for screening mammogram for malignant neoplasm of breast] Onset: 7 Episodic Other upper respiratory infections (2 sources) Acute sinusitis, unspecified; Translations: [Acute pharyngitis, unspecified] Episodic Peripheral and visceral atherosclerosis (6 sources) Intermittent claudication; Translations: [Peripheral vascular disease, unspecified] Chronic Pneumonia (except that caused by tuberculosis or sexually transmitted disease) (3 sources) Community acquired pneumonia; Translations: [Pneumonia, unspecified organism] Onset: 3 02-12-2023 Episodic Residual codes; unclassified (5 sources) Delirium; Translations: [Disorientation, unspecified] 08-15-2021 Episodic Residual codes; unclassified (5 sources) Altered mental status; Translations: [Altered mental status, unspecified] 08-15-2021 Episodic Residual codes; unclassified (3 sources) Altered mental status, unspecified; Translations: [Altered mental status] Episodic Residual codes; unclassified (1 source) Tobacco use; Translations: [Tobacco abuse] Onset: 3 Episodic Respiratory failure; insufficiency; arrest (adult) (3 sources) Acute respiratory failure; Translations: [Acute respiratory failure with hypoxia] Onset: 3 02-12-2023 Episodic Substance-related disorders (20 sources) Nicotine dependence; Translations: [Nicotine dependence, unspecified, uncomplicated] Onset: 5 Resolved: 2 Chronic Comment on above: 2 CIGS DAILY; Added secondary to d ocumentation in Social History. Unclassified (7 sources) Patient encounter status 06-14-2022 Unclassified (2 sources) COUGH, UNSPECIFIED; Translations: [COUGH, UNSPECIFIED] Onset: 3 Unclassified (1 source) CONTACT W/AND (SUSP) EXPOS COVID-19; Translations: [CONTACT W/AND (SUSP) EXPOS COVID-19] Onset: 2 Unclassified (6 sources) History of endometrial ablation Onset: 6 10-15-2022 Unclassified (1 source) Encounter for screening for malignant neoplasm of colon; Translations: [Encounter for screening for malignant neoplasm of colon] Onset: 3 Urinary tract infections (12 sources) Pyelonephritis; Translations: [Tubulo-interstitial nephritis, not specified as acute or chronic] Onset: 2 08-13-2021 Episodic Past or Other Problems Problem Classification Problem Date Documented Date Episodic/Chronic Abdominal pain (4 sources) Right upper quadrant pain; Translations: [RIGHT UPPER QUADRANT PAIN] Onset: 08-13-2021 Episodic Conditions associated with dizziness or vertigo (1 source) Dizziness and giddiness; Translations: [DIZZINESS AND GIDDINESS] Onset: 08-16-2021 Episodic Fluid and electrolyte disorders (9 sources) Hypokalemia; Translations: [Alkalosis] Onset: 08-16-2021 Episodic Genitourinary symptoms and ill-defined conditions (9 sources) Increased frequency of urination; Translations: [Frequency of micturition] Onset: 08-16-2021 Episodic Immunizations and screening for infectious disease (1 source) Encounter for screening for human papillomavirus (HPV); Translations: [ENC SCREENING HUMAN PAPILLOMAVIRUS] Onset: 02-27-2022 Episodic Other and unspecified benign neoplasm (2 sources) Personal history of colonic polyps; Translations: [Personal history of colonic polyps] Onset: 03-13-2022 03-13-2022 Episodic Other hematologic conditions (6 sources) Other specified abnormalities of plasma proteins; Translations: [Other abnormal blood chemistry] Onset: 08-16-2021 Episodic Other hematologic conditions (13 sources) Erythrocytosis; Translations: [Secondary polycythemia] Onset: 03-14-2016 03-14-2016 Episodic Residual codes; unclassified (4 sources) Disorientation, unspecified; Translations: [Other alteration of consciousness] Onset: 08-16-2021 Episodic Residual codes; unclassified (1 source) Other specified personal risk factors, not elsewhere classified Onset: 08-23-2021 Resolved: 08-23-2021 Episodic Residual codes; unclassified (7 sources) History of endometrial ablation; Translations: [Other specified postprocedural states] Onset: 02-08-2016 02-08-2016 Episodic Residual codes; unclassified (12 sources) Tobacco user; Translations: [Tobacco use] Onset: 09-07-2014 10-09-2022 Episodic Screening and history of mental health and substance abuse codes (13 sources) Ex-smoker; Translations: [Personal history of tobacco use] Onset: 02-21-2022 10-15-2022 Episodic Comment on above: quit 2021; Outside Source Comme nt: Comment on above: quit 2021; Unclassified (10 sources) None (qualifier value) 11-16-2015 Unclassified (1 source) Cough R05.9 Unclassified (1 source) COUGH, UNSPECIFIED; Translations: [COUGH, UNSPECIFIED] Onset: 02-19-2022 Results Test Name Value Interpretation Reference Range Facility Basic Metabolic Panelon 01-19 Anion gap [Moles/Vol] 12.2 mmol/L Normal 6.0-15.0 [facility] Comment on above: Performed By: #### B MP, CBC #### [facility] [address] [place] [address] [place] Calcium [Mass/Vol] 9.4 mg/dL Normal 8.6-10.3 [facility] Comment on above: Performed By: #### B MP, CBC #### [facility] [address] [place] [address] [place] Chloride [Moles/Vol] 103 mmol/L Normal 98-107 [facility] Comment on above: Performed By: #### B MP, CBC #### [facility] [address] [place] [address] [place] CO2 [Moles/Vol] 26.2 mmol/L Normal 21.0-31.0 [facility] Comment on above: Performed By: #### B MP, CBC #### [facility] [address] [place] [address] [place] Creatinine [Mass/Vol] 1.35 mg/dL High 0.60-1.20 [facility] Comment on above: Performed By: #### B MP, CBC #### [place] [address] [place] Creatinine Clr Calc Pharmacy 40.59 [facility] Comment on above: Result Comment: PERF ORMED BY: [place] [address] PATHOLOGIST [employer] JERAMY CALDWELL M.D. Performed By: #### B MP, CBC #### [place] [address] [place] GFR/1.73 sq M.predicted MDRD (S/P/Bld) [Vol rate/Area] 44.991 mL/min/{1.73_m2} [facility] Comment on above: Performed By: #### B MP, CBC #### [address] Glucose [Mass/Vol] 136 mg/dL High 70-100 [facility] Comment on above: Result Comment: [place] Glucose Reference Range is dependent on time and content of last meal. Glucose of more than 200 mg/dL in a nonstressed, ambulatory subject supports the diagnosis of Diabetes Mellitus. ADA recommended reference range Performed By: #### B MP, CBC #### [place] [address] [place] Potassium [Moles/Vol] 5.4 mmol/L High 3.5-5.1 [facility] Comment on above: Performed By: #### B MP, CBC #### [place] [address] [place] Sodium [Moles/Vol] 136 mmol/L Normal 136-145 [facility] Comment on above: Performed By: #### B MP, CBC #### [place] [address] [place] Urea nitrogen [Mass/Vol] 33 mg/dL High 7-25 [facility] Comment on above: Performed By: #### B MP, CBC #### [facility] [address] [place] [address] [place] Basophils Auto (Bld) [#/Vol] Ordered By: Jacques Talbotomar on 02-14-2023 Basophils (Bld) [#/Vol] 0.0 10*3/uL 0.0-0.2 [facility] Basophils/100 WBC Auto (Bld) Ordered By: Obpatriciadaenrique Talbotomar on 02-14-2023 Basophils/100 WBC (Bld) 0.1 % . [facility] Calcium [Mass/volume] in Ser um or PlasmaOrdered By: Jacques East on 02-14-2023 Calcium [Mass/Vol] 9.4 mg/dL 8.6-10.3 [facility] [place] dioxide, total [Moles /volume] in Serum or PlasmaOrdered By: Jacques East on 02-14-2023 CO2 [Moles/Vol] 26.2 mmol/L 21.0-31.0 [facility] Chloride [Moles/volume] in S oralia or PlasmaOrdered By: Jacques East on 02-14-2023 Chloride [Moles/Vol] 103 mmol/L 98-107 [facility] Complete Blood Count Auto Di ffon 02-14-2023 Basophils (Bld) [#/Vol] 0.0 10*3/uL Normal 0.0-0.2 [facility] Comment on above: Result Comment: PERF ORMED BY: [place] [address] PATHOLOGIST [employer] JERAMY CALDWELL M.D. Performed By: #### B MP, CBC #### [facility] [address] [place] [address] [place] Basophils/100 WBC (Bld) 0.1 % Normal . [facility] Comment on above: Performed By: #### B MP, CBC #### [facility] [address] [place] [address] [place] Eosinophils (Bld) [#/Vol] 0.0 10*3/uL Normal 0.0-0.45 [facility] Comment on above: Performed By: #### B MP, CBC #### [address] Eosinophils/100 WBC (Bld) 0.0 % Normal . [facility] Comment on above: Performed By: #### B MP, CBC #### [address] Erythrocyte distribution width (RBC) [Ratio] 14.6 % Normal 11.9-15.3 [facility] Comment on above: Performed By: #### B MP, CBC #### [address] Hematocrit (Bld) [Volume fraction] 44.5 % Normal 34.0-46.4 [facility] Comment on above: Performed By: #### B MP, CBC #### [address] Hemoglobin (Bld) [Mass/Vol] 15.1 g/dL Normal 11.8-15.4 [facility] Comment on above: Performed By: #### B MP, CBC #### [address] Lymphocytes (Bld) [#/Vol] 1.0 10*3/uL Normal 1.00-4.8 [facility] Comment on above: Performed By: #### B MP, CBC #### [address] Lymphocytes/100 WBC (Bld) 7.6 % Normal . [facility] Comment on above: Performed By: #### B MP, CBC #### [address] MCH (RBC) [Entitic mass] 30.6 pg Normal 24.7-34.3 [facility] Comment on above: Performed By: #### B MP, CBC #### [address] MCV (RBC) [Entitic vol] 90.4 fL Normal 80-100 [facility] Comment on above: Performed By: #### B MP, CBC #### [facility] [address] Mean Corpuscular HGB Conc 33.9 g/dL Normal 32.0-35.0 [facility] Comment on above: Performed By: #### B MP, CBC #### [facility] [address] [place] [address] Monocytes (Bld) [#/Vol] 0.6 10*3/uL Normal 0.0-0.8 [facility] Comment on above: Performed By: #### B MP, CBC #### [address] Monocytes/100 WBC (Bld) 4.7 % Normal . [facility] Comment on above: Performed By: #### B MP, CBC #### [facility] [address] [place] [address] Neutrophils (Bld) [#/Vol] 11.1 10*3/uL High 1.8-7.7 [facility] Comment on above: Performed By: #### B MP, CBC #### [address] Neutrophils/100 WBC (Bld) 87.6 % Normal . [facility] Comment on above: Performed By: #### B MP, CBC #### [facility] [address] [place] [address] NRBC% 0.0 /100{WBC} Normal 0-0.5 [facility] Comment on above: Performed By: #### B MP, CBC #### [address] Platelet mean volume (Bld) [Entitic vol] 8.5 fL Normal 6.3-10.7 [facility] Comment on above: Performed By: #### B MP, CBC #### [place] [address] [place] Platelets (Bld) [#/Vol] 220 10*3/uL Normal 150-450 [facility] [place] Comment on above: Performed By: #### B MP, CBC #### [facility] [address] RBC (Bld) [#/Vol] 4.92 10*6/uL Normal 3.60-5.00 [facility] Comment on above: Performed By: #### B MP, CBC #### [facility] [address] WBC (Bld) [#/Vol] 12.7 10*3/uL High 3.8-11.6 [facility] Comment on above: Performed By: #### B MP, CBC #### [facility] [address] Creatinine [Mass/volume] in Serum or PlasmaOrdered By: Jacques East on 02-14-2023 Creatinine [Mass/Vol] 1.35 mg/dL 0.60-1.20 [facility] Eosinophils Auto (Bld) [#/Vo l]Ordered By: Obreinaldo Talbotomar on 02-14-2023 Eosinophils (Bld) [#/Vol] 0.0 10*3/uL 0.0-0.45 [facility] Eosinophils/100 WBC Auto (Bl d)Ordered By: Obpatriciadah Antioneomar on 02-14-2023 Eosinophils/100 WBC (Bld) 0.0 % . [facility] Erythrocyte distribution wid th Auto (RBC) [Ratio]Ordered By: Jacques Chirinosr on 02-14-2023 Erythrocyte distribution width (RBC) [Ratio] 14.6 % 11.9-15.3 [facility] Glucose [Mass/volume] in Ser um or PlasmaOrdered By: Obreinaldo Talbotomar on 02-14-2023 Glucose [Mass/Vol] 136 mg/dL 70-100 [facility] Comment on above: ADA recommended refe rence rangeRandom Glucose Reference Range is dependent on time and content of last meal. Glucose of more than 200 mg/dL in a nonstressed, ambulatory subject supports the diagnosis of Diabetes Mellitus. Hematocrit Auto (Bld) [Volum e fraction]Ordered By: Jacques East on 02-14-2023 Hematocrit (Bld) [Volume fraction] 44.5 % 34.0-46.4 [facility] Hemoglobin [Mass/volume] in BloodOrdered By: Jacques Chirinosr on 02-14-2023 Hemoglobin (Bld) [Mass/Vol] 15.1 g/dL 11.8-15.4 [facility] Leukocytes [#/volume] correc elliot for nucleated erythrocytes in Blood by Automated counOrdered By: Jacques East on 02-14-2023 WBC corrected for nucl RBC Auto (Bld) [#/Vol] 12.7 10*3/uL 3.8-11.6 [facility] Lymphocytes Auto (Bld) [#/Vo l]Ordered By: Jacques Chirinosr on 02-14-2023 Lymphocytes (Bld) [#/Vol] 1.0 10*3/uL 1.00-4.8 [facility] Lymphocytes/100 WBC Auto (Bl d)Ordered By: Jacques Chirinosr on 02-14-2023 Lymphocytes/100 WBC (Bld) 7.6 % . [facility] MCH Auto (RBC) [Entitic mass ]Ordered By: Jacques East on 02-14-2023 MCH (RBC) [Entitic mass] 30.6 pg 24.7-34.3 [facility] MCHC Auto (RBC) [Mass/Vol]Or dered By: Jacques East on 02-14-2023 MCHC (RBC) [Mass/Vol] 33.9 g/dL 32.0-35.0 [facility] MCV Auto (RBC) [Entitic vol] Ordered By: Jacques Talbotomar on 02-14-2023 MCV (RBC) [Entitic vol] 90.4 fL 80-100 [facility] Monocytes Auto (Bld) [#/Vol] Ordered By: Jacques Talbotomar on 02-14-2023 Monocytes (Bld) [#/Vol] 0.6 10*3/uL 0.0-0.8 [facility] Monocytes/100 WBC Auto (Bld) Ordered By: Jacques Chirinosr on 02-14-2023 Monocytes/100 WBC (Bld) 4.7 % . [facility] Neutrophils Auto (Bld) [#/Vo l]Ordered By: Obreinaldo Talbotomar on 02-14-2023 Neutrophils (Bld) [#/Vol] 11.1 10*3/uL 1.8-7.7 [facility] Neutrophils/100 WBC Auto (Bl d)Ordered By: Obpatriciadaenrique Talbotomar on 02-14-2023 Neutrophils/100 WBC (Bld) 87.6 % . [facility] No Panel InformationOrdered By: Obreinaldo Chirinosr on 02-14-2023 Estimated GFR (CKD-EPI) 44.991 mL/Min [facility] Pharmacy Creatinine Clearance (Chem 40.59 [facility] Nucleated erythrocytes [Pres ence] in Blood by Automated countOrdered By: Jacques Chirinosr on 02-14-2023 Nucleated RBC Auto Ql (Bld) 0.0 /100{WBC} 0-0.5 [facility] Platelet mean volume Auto (B ld) [Entitic vol]Ordered By: Obreinaldo Talbotomar on 02-14-2023 Platelet mean volume (Bld) [Entitic vol] 8.5 fL 6.3-10.7 [facility] Platelets Auto (Bld) [#/Vol] Ordered By: Jacques Talbotomar on 02-14-2023 Platelets (Bld) [#/Vol] 220 10*3/uL 150-450 [facility] Potassium [Moles/volume] in Serum or PlasmaOrdered By: Obpatriciadaenrique Talbotomar on 02-14-2023 Potassium [Moles/Vol] 5.4 mmol/L 3.5-5.1 [facility] RBC Auto (Bld) [#/Vol]Ordere d By: Obpatriciadah Antioneomar on 02-14-2023 RBC (Bld) [#/Vol] 4.92 10*6/uL 3.60-5.00 [facility] Serum or plasma anion gap de terminationOrdered By: Jaraddaenrique Talbotomar on 02-14-2023 Anion gap [Moles/Vol] 12.2 mmol/L 6.0-15.0 [facility] Sodium [Moles/volume] in Ser um or PlasmaOrdered By: Obpatriciadaenrique Talbotomar on 02-14-2023 Sodium [Moles/Vol] 136 mmol/L 136-145 [facility] Urea nitrogen [Mass/volume] in Serum or PlasmaOrdered By: Obpatriciadaenrique Talbotomar on 02-14-2023 Urea nitrogen [Mass/Vol] 33 mg/dL 7-25 [facility] WBC Auto (Bld) [#/Vol]Ordere d By: Obpatriciadah Daromar on 02-14-2023 WBC (Bld) [#/Vol] 12.7 10*3/uL 3.8-11.6 [facility] Alanine aminotransferase [En zymatic activity/volume] in Serum or PlasmaOrdered By: Obpatriciadaenrique Talbotomar on 02-13-2023 ALT [Catalytic activity/Vol] 16 U/L 7-52 [facility] Albumin [Mass/volume] in Ser um or Plasma by Bromocresol green (BCG) dye binding methoOrdered By: Obpatriciadaenrique Talbotomar on 02-13-2023 Albumin BCG dye [Mass/Vol] 4.0 g/dL 3.5-5.7 [facility] Alkaline phosphatase [Enzyma tic activity/volume] in Serum or PlasmaOrdered By: Obpatriciadaenrique Talbotomar on 02-13-2023 ALP [Catalytic activity/Vol] 57 U/L 34-104 [facility] Aspartate aminotransferase [ Enzymatic activity/volume] in Serum or PlasmaOrdered By: Obpatriciadah Daromar on 02-13-2023 AST [Catalytic activity/Vol] 22 U/L 13-39 [facility] Bilirubin.total [Mass/volume ] in Serum or PlasmaOrdered By: Obpatriciadah Antioneomar on 02-13-2023 Bilirubin [Mass/Vol] 0.6 mg/dL 0.3-1.0 [facility] Complete Blood Count Auto Di ffon 02-13-2023 Basophils (Bld) [#/Vol] 0.0 10*3/uL Normal 0.0-0.2 [facility] Comment on above: Result Comment: PERF ORMED BY: [place] [address] PATHOLOGIST [employer] JERAMY CALDWELL M.D. Performed By: #### M G, CMP, CBC #### [facility] [address] [place] [address] [place] Basophils/100 WBC (Bld) 0.2 % Normal . [facility] Comment on above: Performed By: #### M G, CMP, CBC #### [facility] [address] [place] [address] [place] Eosinophils (Bld) [#/Vol] 0.0 10*3/uL Normal 0.0-0.45 [facility] Comment on above: Performed By: #### M G, CMP, CBC #### [place] [address] [place] Eosinophils/100 WBC (Bld) 0.0 % Normal . [facility] Comment on above: Performed By: #### M G, CMP, CBC #### [facility] [address] [place] [address] Erythrocyte distribution width (RBC) [Ratio] 14.4 % Normal 11.9-15.3 [facility] Comment on above: Performed By: #### M G, CMP, CBC #### [facility] [address] [place] [address] [place] Hematocrit (Bld) [Volume fraction] 43.2 % Normal 34.0-46.4 [facility] Comment on above: Performed By: #### M G, CMP, CBC #### [facility] [address] [place] [address] [place] Hemoglobin (Bld) [Mass/Vol] 14.6 g/dL Normal 11.8-15.4 [facility] Comment on above: Performed By: #### M G, CMP, CBC #### [facility] [address] [place] [address] [place] Lymphocytes (Bld) [#/Vol] 2.7 10*3/uL Normal 1.00-4.8 [facility] Comment on above: Performed By: #### M G, CMP, CBC #### [facility] [address] [place] [address] [place] Lymphocytes/100 WBC (Bld) 18.3 % Normal . [facility] Comment on above: Performed By: #### M Devang, CMP, CBC #### [facility] [address] MCH (RBC) [Entitic mass] 30.5 pg Normal 24.7-34.3 [facility] Comment on above: Performed By: #### M Devang, CMP, CBC #### [facility] [address] MCV (RBC) [Entitic vol] 90.1 fL Normal 80-100 [facility] Comment on above: Performed By: #### Cheo Siddiqi, CMP, CBC #### [address] Mean Corpuscular HGB Conc 33.8 g/dL Normal 32.0-35.0 [facility] Comment on above: Performed By: #### Cheo Siddiqi, CMP, CBC #### [facility] [address] [place] [address] [place] Monocytes (Bld) [#/Vol] 1.2 10*3/uL High 0.0-0.8 [facility] Comment on above: Performed By: #### Cheo Siddiqi, CMP, CBC #### [place] [address] [place] Monocytes/100 WBC (Bld) 7.9 % Normal . [facility] Comment on above: Performed By: #### M Devang, CMP, CBC #### [facility] [address] [place] [address] [place] Neutrophils (Bld) [#/Vol] 11.0 10*3/uL High 1.8-7.7 [facility] Comment on above: Performed By: #### Cheo G, CMP, CBC #### [facility] [address] [place] [address] [place] Neutrophils/100 WBC (Bld) 73.6 % Normal . [facility] Comment on above: Performed By: #### Cheo Siddiqi, CMP, CBC #### [address] NRBC% 0.1 /100{WBC} Normal 0-0.5 [facility] Comment on above: Performed By: #### M G, CMP, CBC #### [address] Platelet mean volume (Bld) [Entitic vol] 7.8 fL Normal 6.3-10.7 [facility] Comment on above: Performed By: #### M G, CMP, CBC #### [address] Platelets (Bld) [#/Vol] 212 10*3/uL Normal 150-450 [facility] Comment on above: Performed By: #### M Devang, CMP, CBC #### [address] RBC (Bld) [#/Vol] 4.80 10*6/uL Normal 3.60-5.00 [facility] Comment on above: Performed By: #### M Devang, CMP, CBC #### [address] WBC (Bld) [#/Vol] 14.9 10*3/uL High 3.8-11.6 [facility] Comment on above: Performed By: #### M Devang, CMP, CBC #### [address] Comprehensive Metabolic Pane javier 02-13-2023 Albumin [Mass/Vol] 4.0 g/dL Normal 3.5-5.7 [facility] Comment on above: Performed By: #### M Devang, CMP, CBC #### [address] Albumin/Globulin [Mass ratio] 1.6 {ratio} Normal [facility] Comment on above: Performed By: #### M G, CMP, CBC #### [address] ALP [Catalytic activity/Vol] 57 U/L Normal 34-104 [facility] Comment on above: Performed By: #### M G, CMP, CBC #### [facility] [address] [place] [id number] [place] ALT [Catalytic activity/Vol] 16 U/L Normal 7-52 [facility] Comment on above: Performed By: #### M G, CMP, CBC #### [facility] [address] [place] [id number] [place] Anion gap [Moles/Vol] 9.4 mmol/L Normal 6.0-15.0 [facility] Comment on above: Performed By: #### M G, CMP, CBC #### [facility] [address] AST [Catalytic activity/Vol] 22 U/L Normal 13-39 [facility] Comment on above: Performed By: #### M G, CMP, CBC #### [facility] [address] Bilirubin [Mass/Vol] 0.6 mg/dL Normal 0.3-1.0 [facility] Comment on above: Performed By: #### M Devang, CMP, CBC #### [facility] [address] Calcium [Mass/Vol] 9.2 mg/dL Normal 8.6-10.3 [facility] Comment on above: Performed By: #### M Devang, CMP, CBC #### [facility] [address] [place] [id number] [place] Chloride [Moles/Vol] 105 mmol/L Normal 98-107 [facility] Comment on above: Performed By: #### M G, CMP, CBC #### [facility] [address] [place] [id number] [place] CO2 [Moles/Vol] 27.1 mmol/L Normal 21.0-31.0 [facility] Comment on above: Performed By: #### M G, CMP, CBC #### [facility] [address] [place] [id number] [place] Creatinine [Mass/Vol] 1.45 mg/dL High 0.60-1.20 [facility] Comment on above: Performed By: #### M Devang, CMP, CBC #### [facility] [address] [place] [address] [place] Creatinine Clr Calc Pharmacy 37.90 [facility] Comment on above: Performed By: #### Cheo Siddiqi, CMP, CBC #### [facility] [address] [place] [address] [place] GFR/1.73 sq M.predicted MDRD (S/P/Bld) [Vol rate/Area] 41.294 mL/min/{1.73_m2} [facility] Comment on above: Performed By: #### Cheo Siddiqi CMP, CBC #### [facility] [address] Globulin (S) [Mass/Vol] 2.5 g/dL [facility] Comment on above: Performed By: #### Cheo Siddiqi CMP, CBC #### [facility] [address] Glucose [Mass/Vol] 92 mg/dL Normal 70-100 [facility] Comment on above: Result Comment: [facility] Glucose Reference Range is dependent on time and content of last meal. Glucose of more than 200 mg/dL in a nonstressed, ambulatory subject supports the diagnosis of Diabetes Mellitus. ADA recommended reference range Performed By: #### Cheo Siddiqi CMP, CBC #### [facility] [address] [place] [address] [place] Potassium [Moles/Vol] 4.5 mmol/L Normal 3.5-5.1 [facility] Comment on above: Performed By: #### Cheo Siddiqi CMP, CBC #### [facility] [address] [place] [address] [place] Protein [Mass/Vol] 6.5 g/dL Normal 6.4-8.9 [facility] Comment on above: Performed By: #### Cheo Siddiqi CMP, CBC #### [facility] [address] [place] [id number] [facility] Sodium [Moles/Vol] 137 mmol/L Normal 136-145 [facility] Comment on above: Performed By: #### M Devang, CMP, CBC #### [facility] [address] Urea nitrogen [Mass/Vol] 28 mg/dL High 09-11 [facility] Comment on above: Performed By: #### M Devang, CMP, CBC #### [facility] [address] Globulin Calc (S) [Mass/Vol] Ordered By: Obaydah Daromar on 02-13-2023 Globulin (S) [Mass/Vol] 2.5 g/dL [facility] Magnesiumon 02-13-2023 Magnesium [Mass/Vol] 1.8 mg/dL Low 1.9-2.7 [facility] Comment on above: Result Comment: PERF ORMED BY: [place] [address] PATHOLOGIST [employer] JERAMY CALDWELL M.D. Performed By: #### M Devang, CMP, CBC #### [facility] [address] Magnesium [Mass/volume] in S oralia or PlasmaOrdered By: Obaydah Daromar on 02-13-2023 Magnesium [Mass/Vol] 1.8 mg/dL 1.9-2.7 [facility] Protein [Mass/volume] in Ser um or PlasmaOrdered By: Obaydah Daromar on 02-13-2023 Protein [Mass/Vol] 6.5 g/dL 6.4-8.9 [facility] Serum or plasma albumin/glob ulin mass ratioOrdered By: Obaydah Daromar on 02-13-2023 Albumin/Globulin [Mass ratio] 1.6 {ratio} [facility] Activated partial thrombopla stin time (aPTT) in platelet poor plasma by coagulation aOrdered By: Sally Valle on 02-12-2023 aPTT Coag (PPP) [Time] 25.6 s 25.1-36.5 [facility] Comment on above: A hematocrit value g reater than 55% may lead to inaccurate results in coagulation testing. Patients having hematocrit values >55% require a special collection tube for coagulation studies. Please contact the laboratory at [phone] for redraw instructions. Aerobic Cultureon 02-12-2023 Aerobic Culture Light Normal Respira tory Zoe 2 Days Gram Stain Result Rare Epithelial Cells 1+ White Blood Cells Rare Gram Positive Coccobacilli PERFORMED BY: [facility] [address] [place] [id number] PATHOLOGIST [employer] JERAMY CALDWELL M.D. Normal [facility] Comment on above: Performed By: #### B MP, CBC #### [facility] [address] [place] [address] Auth for Release of Medical Recordson 02-12-2023 Auth for Release of Medical Records [id number] Normal [facility] Automated erythrocytes count in urine sediment (number/area)Ordered By: Jacques Chirinosr on 02-12-2023 RBC Auto (Urine sed) [#/Area] 1-2 [HPF] 0-4 [facility] Automated leukocytes count i n urine sediment (number/area)Ordered By: Jacques Talbotomar on 02-12-2023 WBC Auto (Urine sed) [#/Area] 3-4 [HPF] 0-4 [facility] Bilirubin Test strip Ql (U)O rdered By: Jacques Chirinosr on 02-12-2023 Bilirubin Ql (U) Negative Negative [facility] C Urineon 02-12-2023 Bacteria identified Cx Nom (U) Microbiology PROCEDURE: Urine Culture [R1] SOURCE: U CleanCatch BODY SITE: COLLECTED DATE/TIME: 02/10/2023 14:48 EST RECEIVED DATE/TIME: 02/10/2023 17:04 EST START DATE/TIME: 02/10/2023 17:04 EST FREE TEXT SOURCE: Alex BRIDGES, Jaxson Weiss. Alex BRIDGES, Jaxson Weiss. FINAL REPORTS Final Report [] Verified Date/Time: 02/12/2023 09:10 EST >100,000 cfu/ml Escherichia coli SUSCEPTIBILITY RESULTS __ LEGEND: S=Susceptible, N/R=Not Reported, Blank=Data not available, or drug not advisable or tested, I=Intermediate, ESBL=Extended spectrum beta-lactamase, R=Resistant, TFG=Thymidine-dependent strain, WEST=Beta-lactamase positive, KATHIE=mcg/m;(mg/L), S*=Predicted susceptible interp, R*=Predicted resistant interp EC Antibiotic KATHIE Dilutn KATHIE Interp Amikacin <=16 S Ampicillin <=8 S Ampicillin/ <=8/4 S Sulbactam Aztreonam <=4 S Cefazolin <=2 S Cefepime <=2 S Cefoxitin <=8 S Ceftazidime <=1 S Ceftazidime/ <=8 S Avibactam Ceftriaxone <=1 S Ciprofloxacin <=1 S Ertapenem <=0.5 S Gentamicin <=4 S Levofloxacin <=2 S Meropenem <=1 S Nitrofurantoin <=32 S Piperacillin/ <=16 S Tazobactam Tetracycline <=4 S Tigecycline <=2 S Tobramycin <=4 S Trimethoprim/ <=2/38 S Sulfa Performing Locations R1: This test was performed at: [facility], [address] [place] [address], [id number] , , [facility] Comment on above: Performed By: #### [id number] #### [facility] [address] [place] [address] Coagulation Profileon 2022 aPTT Coag (Bld) [Time] 25.6 s Normal 25.1-36.5 [facility] Comment on above: Result Comment: A he matocrit value greater than 55% may lead to inaccurate results in coagulation testing. Patients having hematocrit values >55% require a special collection tube for coagulation studies. Please contact the laboratory at [phone] for redraw instructions. PERFORMED BY: [place] [address] PATHOLOGIST [employer] JERAMY CALDWELL M.D. Performed By: #### B MP, CBC #### [address] [address] [facility] INR Coag (PPP) [Relative time] 0.9 {INR} Normal [facility] Comment on above: Result Comment: INR Therapeutic Range A) Pre- and Peroperative OAT started two weeks before surgery. NOT HIP SURGERY: 1.5 - 2.5 HIP SURGERY: 2 - 3 B) Primary and secondary prevention of venous THROMBOSIS: 2 - 3 C) Active venous thrombosis, pulmonary embolism and prevention of recurrent venous thrombosis: 2 - 3 D) Prevention of arterial thromboembolism including patients with mechanical heart valves: 3 - 4.5 Performed By: #### B MP, CBC #### [facility] [address] [place] [address] [facility] PT Coag (PPP) [Time] 10.9 s Normal 9.0-12.9 [facility] Comment on above: Result Comment: A he matocrit value greater than 55% may lead to inaccurate results in coagulation testing. Patients having hematocrit values >55% require a special collection tube for coagulation studies. Please contact the laboratory at [phone] for redraw instructions. Performed By: #### B MP, CBC #### [address] [address] [place] Color Auto (U)Ordered By: Glenroy East on 02-12-2023 Color (U) Yellow Yellow [facility] Complete Blood Count Auto Di ffon 02-12-2023 Basophils (Bld) [#/Vol] 0.0 10*3/uL Normal 0.0-0.2 [facility] Comment on above: Result Comment: PERF ORMED BY: [place] [address] PATHOLOGIST [employer] JERAMY CALDWELL M.D. Performed By: #### C BC, PP, CMP #### [place] [address] [place] Basophils/100 WBC (Bld) 0.2 % Normal . [facility] Comment on above: Performed By: #### C BC, PP, CMP #### [address] Eosinophils (Bld) [#/Vol] 0.0 10*3/uL Normal 0.0-0.45 [facility] Comment on above: Performed By: #### C BC, PP, CMP #### [place] [address] [place] Eosinophils/100 WBC (Bld) 0.0 % Normal . [facility] Comment on above: Performed By: #### C BC, PP, CMP #### [address] Erythrocyte distribution width (RBC) [Ratio] 14.6 % Normal 11.9-15.3 [facility] Comment on above: Performed By: #### C BC, PP, CMP #### [place] [address] [place] Hematocrit (Bld) [Volume fraction] 46.1 % Normal 34.0-46.4 [facility] Comment on above: Performed By: #### C BC, PP, CMP #### [place] [address] [place] Hemoglobin (Bld) [Mass/Vol] 15.6 g/dL High 11.8-15.4 [facility] Comment on above: Performed By: #### C BC, PP, CMP #### [place] [address] [place] Lymphocytes (Bld) [#/Vol] 0.6 10*3/uL Low 1.00-4.8 [facility] Comment on above: Performed By: #### C JUANITA PP, CMP #### [address] Lymphocytes/100 WBC (Bld) 4.0 % Normal . [facility] Comment on above: Performed By: #### C JUANITA PP, CMP #### [address] MCH (RBC) [Entitic mass] 30.6 pg Normal 24.7-34.3 [facility] Comment on above: Performed By: #### C JUANITA PP, CMP #### [address] MCV (RBC) [Entitic vol] 90.6 fL Normal 80-100 [facility] Comment on above: Performed By: #### C JUANITA PP, CMP #### [address] Mean Corpuscular HGB Conc 33.8 g/dL Normal 32.0-35.0 [facility] Comment on above: Performed By: #### C JUANITA PP, CMP #### [address] Monocytes (Bld) [#/Vol] 0.3 10*3/uL Normal 0.0-0.8 [facility] Comment on above: Performed By: #### C JUANITA PP, CMP #### [address] Monocytes/100 WBC (Bld) 1.8 % Normal . [facility] Comment on above: Performed By: #### C JUANITA PP, CMP #### [address] Neutrophils (Bld) [#/Vol] 14.1 10*3/uL High 1.8-7.7 [facility] Comment on above: Performed By: #### C JUANITA PP, CMP #### [address] Neutrophils/100 WBC (Bld) 94.0 % Normal . [facility] Comment on above: Performed By: #### C JUANITA, PP, CMP #### [address] NRBC% 0.1 /100{WBC} Normal 0-0.5 [facility] Comment on above: Performed By: #### C BC, PP, CMP #### [address] Platelet mean volume (Bld) [Entitic vol] 7.9 fL Normal 6.3-10.7 [facility] Comment on above: Performed By: #### C JUANITA, PP, CMP #### [address] Platelets (Bld) [#/Vol] 236 10*3/uL Normal 150-450 [facility] Comment on above: Performed By: #### C JUANITA, PP, CMP #### [address] RBC (Bld) [#/Vol] 5.09 10*6/uL High 3.60-5.00 [facility] Comment on above: Performed By: #### C JUANITA, PP, CMP #### [address] WBC (Bld) [#/Vol] 15.0 10*3/uL High 3.8-11.6 [facility] Comment on above: Performed By: #### C BC, PP, CMP #### [address] Comprehensive Metabolic Pane javier 02-12-2023 Albumin [Mass/Vol] 4.6 g/dL Normal 3.5-5.7 [facility] Comment on above: Performed By: #### B MP, CBC #### [address] Albumin/Globulin [Mass ratio] 1.5 {ratio} Normal [facility] Comment on above: Performed By: #### B MP, CBC #### [facility] [address] ALP [Catalytic activity/Vol] 70 U/L Normal 34-104 [facility] Comment on above: Performed By: #### B MP, CBC #### [address] ALT [Catalytic activity/Vol] 19 U/L Normal 7-52 [facility] Comment on above: Performed By: #### B MP, CBC #### [address] Anion gap [Moles/Vol] Not performed Normal 6.0-15.0 [facility] Comment on above: Performed By: #### B MP, CBC #### [address] AST [Catalytic activity/Vol] 29 U/L Normal 13-39 [facility] Comment on above: Performed By: #### B MP, CBC #### [address] Bilirubin [Mass/Vol] 0.5 mg/dL Normal 0.3-1.0 [facility] Comment on above: Performed By: #### B MP, CBC #### [address] Calcium [Mass/Vol] 9.9 mg/dL Normal 8.6-10.3 [facility] Comment on above: Performed By: #### B MP, CBC #### [facility] [address] [place] [address] Chloride [Moles/Vol] 106 mmol/L Normal 98-107 [facility] Comment on above: Performed By: #### B MP, CBC #### [facility] [address] [place] [address] CO2 [Moles/Vol] 20.4 mmol/L Low 21.0-31.0 [facility] Comment on above: Performed By: #### B MP, CBC #### [facility] [address] [place] [address] Creatinine [Mass/Vol] 1.65 mg/dL High 0.60-1.20 [facility] Comment on above: Performed By: #### B MP, CBC #### [facility] [address] Creatinine Clr Calc Pharmacy 34.03 [facility] Comment on above: Result Comment: PERF ORMED BY: [place] [address] PATHOLOGIST [employer] JERAMY CALDWELL M.D. Performed By: #### B MP, CBC #### [facility] [address] GFR/1.73 sq M.predicted MDRD (S/P/Bld) [Vol rate/Area] 35.363 mL/min/{1.73_m2} [facility] Comment on above: Performed By: #### B MP, CBC #### [place] [address] [place] Globulin (S) [Mass/Vol] 3.1 g/dL [facility] Comment on above: Performed By: #### B MP, CBC #### [address] Glucose [Mass/Vol] 157 mg/dL High 70-100 [facility] Comment on above: Result Comment: [facility] Glucose Reference Range is dependent on time and content of last meal. Glucose of more than 200 mg/dL in a nonstressed, ambulatory subject supports the diagnosis of Diabetes Mellitus. ADA recommended reference range Performed By: #### B MP, CBC #### [facility] [address] Potassium Normal 3.5-5.1 [facility] Comment on above: Result Comment: Spec imen hemolyzed, redraw requested Performed By: #### B MP, CBC #### [facility] [address] Protein [Mass/Vol] 7.7 g/dL Normal 6.4-8.9 [facility] Comment on above: Performed By: #### B MP, CBC #### [facility] [address] [place] [id number] [place] Sodium [Moles/Vol] 140 mmol/L Normal 136-145 [facility] Comment on above: Performed By: #### B MP, CBC #### [facility] [address] [place] [address] [place] Urea nitrogen [Mass/Vol] 32 mg/dL High 09-11 [facility] Comment on above: Performed By: #### B MP, CBC #### [facility] [address] [place] [address] [place] Dipstick and Microscopicon 1 04-15-2022 Appearance (U) Clear Normal Clear [facility] Comment on above: Order Comment: Name Collection Type:: Clean-Voided Midstream Performed By: #### B MP, CBC #### [place] [address] [place] Bacteria,Urine None Seen Normal None Seen [facility] Comment on above: Order Comment: Name Collection Type:: Clean-Voided Midstream Performed By: #### B MP, CBC #### [facility] [address] [place] [address] [place] Bilirubin,Urine Negative Normal Negative [facility] Comment on above: Order Comment: Name Collection Type:: Clean-Voided Midstream Performed By: #### B MP, CBC #### [facility] [address] [place] [address] [place] Color (U) Yellow Normal Yellow [facility] Comment on above: Order Comment: Name Collection Type:: Clean-Voided Midstream Performed By: #### B MP, CBC #### [facility] [address] [place] [address] [place] Glucose Ql (U) Normal Normal Normal [facility] Comment on above: Order Comment: Name Collection Type:: Clean-Voided Midstream Performed By: #### B MP, CBC #### [facility] [address] [place] [id number] [place] Hyaline Casts,Urine 0-8 Normal 0-8 [facility] Comment on above: Order Comment: Name Collection Type:: Clean-Voided Midstream Result Comment: PERF ORMED BY: [place] [address] PATHOLOGIST [employer] JERAMY CALDWELL M.D. Performed By: #### B MP, CBC #### [address] Ketones Ql (U) Negative Normal Negative [facility] Comment on above: Order Comment: Name Collection Type:: Clean-Voided Midstream Performed By: #### B MP, CBC #### [address] Leukocyte esterase Test strip Ql (U) 1+ High Negative [facility] Comment on above: Order Comment: Name Collection Type:: Clean-Voided Midstream Performed By: #### B MP, CBC #### [address] Nitrite,Urine Negative Normal Negative [facility] Comment on above: Order Comment: Name Collection Type:: Clean-Voided Midstream Performed By: #### B MP, CBC #### [place] [address] [place] Occult Blood,Urine Negative Normal Negative [facility] Comment on above: Order Comment: Name Collection Type:: Clean-Voided Midstream Result Comment: PERF ORMED BY: [place] [address] PATHOLOGIST [employer] JERAMY CALDWELL M.D. Performed By: #### B MP, CBC #### [place] [address] [place] pH (U) 5.0 [pH] Normal 5.0-9.0 [facility] Comment on above: Order Comment: Name Collection Type:: Clean-Voided Midstream Performed By: #### B MP, CBC #### [place] [address] [place] Protein,Urine Negative Normal Negative [facility] Comment on above: Order Comment: Name Collection Type:: Clean-Voided Midstream Performed By: #### B MP, CBC #### [place] [address] [place] RBC,Urine 1-2 Normal 0-4 [facility] Comment on above: Order Comment: Name Collection Type:: Clean-Voided Midstream Performed By: #### B MP, CBC #### [facility] [address] [place] [address] Specificy Flushing,Urine 1.017 Normal 1.001-1.03 0 [facility] Comment on above: Order Comment: Name Collection Type:: Clean-Voided Midstream Performed By: #### B MP, CBC #### [facility] [address] Squamous Epithelial Cell,Urine 0-1 Normal 0-2 [facility] Comment on above: Order Comment: Name Collection Type:: Clean-Voided Midstream Performed By: #### B MP, CBC #### [address] Urobilinogen,Urine Normal Normal Normal [facility] Comment on above: Order Comment: Name Collection Type:: Clean-Voided Midstream Performed By: #### B MP, CBC #### [facility] [address] [place] [address] [place] WBC,Urine 3-4 Normal 0-4 [facility] Comment on above: Order Comment: Name Collection Type:: Clean-Voided Midstream Performed By: #### B MP, CBC #### [facility] [address] [place] [address] ECG 12 lead ECGon 02-12-2023 ECG 12 lead ECG [facility] [place] [address] [place] [address] Electrocardiograph Report Signed Patient: Deysi Hernandez MR#: [id number] : 1960 Acct:[id number] Age/Sex: 62 / F ADM Date: 02/12/23 Loc: Room: [address] [place] [address] Type: ADM IN Attending Dr: Jacques East MD Ordering Provider: Sally Valle MD Date of Service: 02/12/23 ECG/ECG 12 lead ECG: elevated trops Copies to: Test Reason : Blood Pressure : / mmHG Vent. Rate : 076 BPM Atrial Rate : 076 BPM P-R Int : 128 ms QRS Dur : 080 ms QT Int : 402 ms P-R-T Axes : 062 052 062 degrees QTc Int : 452 ms Normal sinus rhythm with sinus arrhythmia Nonspecific ST abnormality - consider inferolateral ischemia Abnormal ECG When compared with ECG of 14-AUG-2021 07:14, Non-specific change in ST segment in Inferior leads Nonspecific T wave abnormality no longer evident in Inferior leads T wave inversion no longer evident in Anterolateral leads QT has shortened Confirmed by BJ BAY DO ([id number]) on 02/13/2023 11:09:18 AM Referred By: Electronically Signed By:BJ BAY DO Transcribed By: MUS Signed By Bj Bay DO 02/13 1109 [facility] Gram Stainon 02-12-2023 Microscopic observation Gram stain Nom (Unsp spec) Gram Stain Result Rare Epithelial Cells 1+ White Blood Cells Rare Gram Positive Coccobacilli PERFORMED BY: [place] [address] PATHOLOGIST [employer] JERAMY CALDWELL M.D. [facility] Comment on above: Performed By: #### B MP, CBC #### [address] Gram stain for investigation of transfusion reactionOrdered By: Jacques East on 02-12-2023 Microscopic observation Gram stain Nom (Unsp spec) [facility] INR in Platelet poor plasma by Coagulation assayOrdered By: Sally Valle on 02-12-2023 INR Coag (PPP) [Relative time] 0.9 {INR} [facility] Comment on above: INR Therapeutic Rang e A) Pre- and Peroperative OAT started two weeks before surgery. NOT HIP SURGERY: 1.5 - 2.5 HIP SURGERY: 2 - 3B) Primary and secondary prevention of venous THROMBOSIS: 2 - 3C) Active venous thrombosis, pulmonary embolismand prevention of recurrent venous thrombosis: 2 - 3D) Prevention of arterial thromboembolismincluding patients with mechanical heart valves: 3 - 4.5 Ketones Auto test strip (U) [Mass/Vol]Ordered By: Jacques East on 02-12-2023 Ketones (U) [Mass/Vol] Negative Negative Fi [facility] - UrinalysisOrder ed By: Jacques East on 02-12-2023 Hyaline casts LM Ql (Urine sed) 0-8 [LPF] 0-8 [facility] Magnesiumon 02-12-2023 Magnesium [Mass/Vol] 1.8 mg/dL Low 1.9-2.7 [facility] Comment on above: Result Comment: PERF ORMED BY: [place] [id number] PATHOLOGIST [employer] JERAMY CALDWELL M.D. Performed By: #### M G #### [facility] [address] [place] [address] [facility] Nitrite Test strip Ql (U)Ord ered By: Jacques East on 02-12-2023 Nitrite Ql (U) Negative Negative [facility] Protein Auto test strip (U) [Mass/Vol]Ordered By: Jacques East on 02-12-2023 Protein (U) [Mass/Vol] Negative Negative [facility] Prothrombin time (PT)Ordered By: Sally Valle on 02-12-2023 PT Coag (PPP) [Time] 10.9 s 9.0-12.9 [facility] Comment on above: A hematocrit value g reater than 55% may lead to inaccurate results in coagulation testing. Patients having hematocrit values >55% require a special collection tube for coagulation studies. Please contact the laboratory at [phone] for redraw instructions. Redraw Potassiumon 3 Potassium [Moles/Vol] 4.4 mmol/L Normal 3.5-5.1 [facility] Comment on above: Order Comment: 1ST S pecimen hemolyzed, redraw requested Result Comment: PERF ORMED BY: [address] [id number] PATHOLOGIST [employer] JERAMY CALDWELL M.D. Performed By: #### B MP, CBC #### [facility] [address] [place] [address] Specific gravity Auto test s trip (U) [Rel density]Ordered By: Jacques East on 02-12-2023 Specific gravity (U) [Rel density] 1.017 1.001-1.03 0 [facility] Squamous epithelial cells de tection in urine sediment by light microscopyOrdered By: Jacques East on 02-12-2023 Epithelial cells.squamous LM Ql (Urine sed) 0-1 [HPF] 0-2 [facility] Troponin I High Sensitivityo n 02-12-2023 Troponin I High Sensitivity 43.8 pg/mL High 0.0-15.0 [facility] Comment on above: Result Comment: PERF ORMED BY: [place] [address] PATHOLOGIST [employer] JERAMY CALDWELL M.D. Performed By: #### H S TROP #### [facility] [address] [place] [address] Troponin I High Sensitivity 70.6 pg/mL Off scale high 0.0-15.0 [facility] Comment on above: Result Comment: Crit ical Result : Called to and read back by: BRANDON LEVINE at: 02/12/2023 08:07:31 by:LUCIANO PERFORMED BY: [place] [address] PATHOLOGIST [employer] JERAMY CALDWELL M.D. Performed By: #### H S TROP #### [facility] [address] [place] [address] Troponin I.cardiac [Mass/vol ume] in Serum or Plasma by Detection limit <= 0.01 ng/Ordered By: Sally Valle on 02-12-2023 Troponin I.cardiac DL <= 0.01 ng/mL [Mass/Vol] 43.8 pg/mL 0.0-15.0 [facility] Urine bacteria detection by automated methodOrdered By: Jacques East on 02-12-2023 Bacteria Auto Ql (U) None seen None Seen [facility] Urine clarity by refractomet ry automatedOrdered By: Jacques East on 02-12-2023 Clarity Refractometry automated (U) Clear Clear [facility] Urine glucose measurement by automated test strip (mass/volume)Ordered By: Jacques East on 02-12-2023 Glucose Auto test strip (U) [Mass/Vol] Normal mg/dL Normal [facility] Urine hemoglobin detection b y automated test stripOrdered By: Jacques East on 02-12-2023 Hemoglobin Auto test strip Ql (U) Negative Negative [facility] Urine leukocyte esterase det ection by automated test stripOrdered By: Jacques East on 02-12-2023 Leukocyte esterase Auto test strip Ql (U) 1+ Negative [facility] Urobilinogen Auto test strip (U) [Mass/Vol]Ordered By: Jacques East on 02-12-2023 Urobilinogen (U) [Mass/Vol] Normal mg/dL Normal [facility] XR chest 1V portableon 02-12 XR chest 1V portable [facility] [place] [address] XRay Report Signed Patient: Deysi Hernandez MR#: [id number] : 1960 Acct:[id number] Age/Sex: 62 / F ADM Date: 02/12/23 Loc: Room: [address] [place] [address] Type: ADM IN Attending Dr: Jacques East MD Copies to: Jacques East MD Ordering Provider: Jacques East MD Date of Service: 02/12/23 XR/XR chest 1V portable: r/o infiltrates Plain film chest Single view HISTORY: Shortness of breath COMPARISON: 02/12/23 FINDINGS: SUPPORT DEVICES: None POSTSURGICAL CHANGES: None HEART: Within normal limits PULMONARY KELLY: Within normal limits MEDIASTINUM: Atherosclerosis of thoracic aorta. LUNGS AND PLEURA: No acute lung process, pleural effusion or pneumothorax identified. Minor interstitial changes. BONY STRUCTURES: Intact ADDITIONAL FINDINGS None XR/XR chest 1V portable IMPRESSION: No acute process. Impression dictated by: Bj Ma M.D.02/12/2023 12:40 PM Dictation Location: [place] [address] Transcribed By: BRUCE 02/12/23 1240 Dictated By: Bj Ma DO 02/12/23 1237 Signed By: 02/12/23 1240 Normal [facility] pH Auto test strip (U)Ordere d By: Jacques East on 02-12-2023 pH (U) 5.0 [pH] 5.0-9.0 [facility] Ambulatory Visit Summaryon 1 04-13-2022 Ambulatory Visit Summary DEYSI HERNANDEZ :1960 Visit Date:02/10/2023 Ambulatory Visit Instructions Your Diagnosis Dysuria Tests Performed Urnls Dip Stick Auto w/o Microscopy POC [id number] Your Care Team Attending Physician - Alex BRIDGES, Jaxson W. Primary Care Physician - DONNA FINNEY, This Is Your Medications List Misc Prescription ([facility] ASPIRIN EC 81 MG TABLET) albuterol (Pro-Air HFA CFC free 90 mcg/inh MDI) atorvastatin lisinopril metoprolol (metoprolol 100 mg ER Tab) omeprazole (omeprazole 40 mg Cap-DR) Procedures Performed None. Discharge Vitals Temperature (Temporal Artery) 36 ?C Heart Rate (Peripheral) 88 Blood Pressure 140/90 Height 163 cm Height 64 in Weight 70 kg Weight 154 lb BMI 26.35 Medications What How Much When Why Instructions Unchanged albuterol (Pro-Air HFA CFC free 90 mcg/ inh MDI) Unchanged atorvastatin By Mouth Every day Unchanged lisinopril Unchanged metoprolol (metoprolol 100 mg ER Tab) 1 Tablets By Mouth Every day Unchanged Misc Prescription ([facility] ASPIRIN EC 81 MG TABLET) 0 Unchanged omeprazole (omeprazole 40 mg Cap-DR) 1 Capsules By Mouth Every day GERD (gastroesophageal reflux disease) Dysphagia Test Results Urnls Dip Stick Auto w/o Microscopy POC [id number] (02/10/2023) Bilirubin Urine Dipstick - Negative Blood Urine Dipstick - 2+ Moderate Glucose Urine Dipstick - Negative Ketones Urine Dipstick - Negative Leukocytes Urine Dipstick - 1+ Small Nitrite Urine Dipstick - Positive Protein Urine Dipstick - Negative Specific Flushing Urine Dipstick - 1.015 Urine Appearance Urine Dipstick - Slightly cloudy Urine Color Urine Dipstick - Yellow Urobilinogen Urine Dipstick - Normal 0.2-1 EU/dl pH Urine Dipstick - 5.5 Allergies codeine (Swelling, Unknown, swelling and itching) Problems Ongoing - Any problem that you are currently receiving treatment for. Alkalosis Atrophy of kidney Cardiac enzyme or marker above reference range Chronic kidney disease stage 3B. Dysphagia Dysphagia Erythrocytosis Ex-smoker Gastroesophageal reflux disease without esophagitis History of endometrial ablation Hyperlipidemia Hypertension Hypertensive renal disease Increased frequency of urination Mixed hyperlipidemia Orthostatic hypotension Screen for colon cancer Smoker Smoker Stress incontinence, female Tobacco user Historical - Any problem that you are no longer receiving treatment for. Embolic stroke Embolic stroke Essential hypertension None Patient Survey You may receive a survey via text or e-mail asking about your office visit. Please share your experience with us by completing your survey. We appreciate your feedback and thank you for choosing us for your care. Normal [facility] Auto Diffon 02-10-2023 Basophils/100 WBC (Bld) 1.3 % Normal 0.0-2.0 [facility] Comment on above: Order Comment: Order Added by Discern Expert. Performed By: #### 2 015210, 44389129, 03802124, 9672147, 5076179, 90797571, 40662440 ####[facility] [address] [place] [address] Basophils/Leukocytes Auto (Bld) [Pure # fraction] 0.1 E9/L Normal 0.0-0.2 [facility] Comment on above: Order Comment: Order Added by Discern Expert. Performed By: #### 2 940267, 77206859, 01891260, 1578408, 9450254, 73741900, 05310303 ####[facility] [address] [place] [address] Eosinophils/100 WBC (Bld) 1.5 % Normal 0.0-8.0 [facility] Comment on above: Order Comment: Order Added by Discern Expert. Performed By: #### 2 656721, 87227469, 91422225, 9559644, 3189962, 10848237, 86705178 ####[address] [place] [address] Eosinophils/Leukocytes Auto (Bld) [Pure # fraction] 0.1 E9/L Normal 0.0-0.5 [facility] Comment on above: Order Comment: Order Added by Discern Expert. Performed By: #### 2 323016, 52144840, 50456095, 5961897, 6200531, 54276267, 65191623 ####[address] [address] Lymphocytes/100 WBC (Bld) 16.8 % Normal 14.0-50.0 [facility] Comment on above: Order Comment: Order Added by Discern Expert. Performed By: #### 2 647646, 87459043, 71926683, 1155412, 0796524, 08393527, 11358456 ####[address] [address] Lymphocytes/Leukocytes Auto (Bld) [Pure # fraction] 1.6 E9/L Normal 1.0-4.0 [facility] Comment on above: Order Comment: Order Added by Discern Expert. Performed By: #### 2 111424, 27670886, 22832060, 3692520, 8070203, 85278854, 82956453 ####[address] [address] Monocytes/100 WBC (Bld) 9.8 % Normal 4.0-14.0 [facility] Comment on above: Order Comment: Order Added by Discern Expert. Performed By: #### 2 876560, 28089107, 25400489, 8213680, 9611169, 10493815, 58541615 ####[address] [address] Monocytes/Leukocytes Auto (Bld) [Pure # fraction] 0.9 E9/L Normal 0.2-1.0 [facility] Comment on above: Order Comment: Order Added by Discern Expert. Performed By: #### 2 478541, 74719562, 61202981, 6171931, 5577401, 19125492, 76647013 ####[facility] [address] [place] [address] Neutrophils/100 WBC (Bld) 70.6 % Normal 36.0-75.0 [facility] Comment on above: Order Comment: Order Added by Discern Expert. Performed By: #### 2 629909, 76749206, 36766279, 9494143, 7168699, 05429094, 42063968 ####[facility] [address] [place] [address] Neutrophils/Leukocytes Auto (Bld) [Pure # fraction] 6.7 E9/L Normal 2.0-7.5 [facility] Comment on above: Order Comment: Order Added by Discern Expert. Performed By: #### 2 601451, 64710365, 92225595, 8163173, 7139413, 79153755, 04178613 ####[address] [place] [address] BMPon 02-10-2023 Anion gap [Moles/Vol] 14 mmol/L Normal 6-16 [facility] Comment on above: Performed By: #### 2 236250, 87879884, 96180057, 3873673, 8690122, 76333505, 70681551 ####[address] [place] [address] BUN/Creat Ratio 12 No Units Normal 10-20 [facility] Comment on above: Performed By: #### 2 600499, 41989701, 39096734, 6964495, 9603503, 95144183, 14596203 ####[address] [place] [address] Calcium [Mass/Vol] 9.7 mg/dL Normal 8.9-11.1 [facility] Comment on above: Performed By: #### 2 362533, 73403672, 38613795, 4516041, 3090679, 23110559, 92268167 ####[address] [place] [address] Chloride [Moles/Vol] 107 mmol/L Normal 101-111 [facility] Comment on above: Performed By: #### 2 960026, 51980876, 48071820, 9695357, 1145406, 49693856, 39543548 ####[facility] [address] [place] [address] CO2 [Moles/Vol] 25 mmol/L Normal 21-31 [facility] Comment on above: Performed By: #### 2 448301, 45269575, 64696283, 2150717, 1095746, 15020002, 57518420 ####[facility] [address] [place] [address] Creatinine [Mass/Vol] 1.4 mg/dL High 0.5-1.3 [facility] Comment on above: Performed By: #### 2 319626, 86230655, 92750789, 2907226, 1096651, 46222504, 67684078 ####[facility] [address] [place] [address] Glucose [Mass/Vol] 84 mg/dL Normal 55-199 [facility] Comment on above: Performed By: #### 2 816345, 11353931, 24962289, 2083230, 0192451, 40417385, 49034293 ####[facility] [address] [place] [address] Potassium [Moles/Vol] 4.8 mmol/L Normal 3.5-5.3 [facility] Comment on above: Performed By: #### 2 521337, 21707157, 75896021, 5904114, 2849871, 09841501, 25410476 ####[facility] [address] [place] [address] Sodium [Moles/Vol] 141 mmol/L Normal 135-145 [facility] Comment on above: Performed By: #### 2 651095, 59892208, 61660260, 6837005, 9062221, 09962533, 25346768 ####[facility] [address] [place] [address] Urea nitrogen [Mass/Vol] 17 mg/dL Normal 5-21 [facility] Comment on above: Performed By: #### 2 177737, 57194940, 79873173, 4980069, 1383106, 13285867, 44030878 ####[facility] [address] [place] [address] BNPon 02-10-2023 Natriuretic peptide B (Bld) [Mass/Vol] 39 pg/mL Normal 5-80 [facility] Comment on above: Performed By: #### 2 627518, 31967155, 22608215, 1119725, 9703491, 37970816, 62458137 ####[facility] [address] [place] [address] CBC w/ Auto Diffon Erythrocyte distribution width (RBC) [Ratio] 14.4 % High 10.9-14.2 [facility] Comment on above: Performed By: #### 2 209711, 44558899, 07302249, 4114781, 1643211, 30179621, 17022073 ####[facility] [address] [place] [address] Hematocrit (Bld) [Volume fraction] 50.0 % High 34.0-46.0 [facility] Comment on above: Performed By: #### 2 950411, 53605425, 39256364, 9466001, 1227982, 82199209, 68689339 ####[facility] [address] [place] [address] Hemoglobin (Bld) [Mass/Vol] 16.8 g/dL High 12.0-16.0 [facility] Comment on above: Performed By: #### 2 652294, 41283451, 42440445, 4112659, 9483633, 01396490, 02290015 ####[facility] [address] [place] [address] MCH (RBC) [Entitic mass] 30.1 pg Normal 27.0-34.0 [facility] Comment on above: Performed By: #### 2 418740, 54766075, 21152661, 4976788, 0278756, 94525283, 03290449 ####[facility] [address] [place] [address] MCHC (RBC) [Mass/Vol] 33.7 g/dL Normal 31.4-36.0 [facility] Comment on above: Performed By: #### 2 105961, 56204682, 53146797, 7374126, 5548909, 38692505, 04375469 ####[address] MCV (RBC) [Entitic vol] 89.4 fL Normal 80.0-100.0 [facility] Comment on above: Performed By: #### 2 958052, 99336141, 05036344, 3584697, 7954538, 42593661, 32557107 ####[address] [address] Platelet mean volume (Bld) [Entitic vol] 8.0 fL Normal 6.4-10.8 [facility] Comment on above: Performed By: #### 2 002925, 84016393, 74474627, 0530868, 4383579, 80058180, 41360735 ####[address] [address] Platelets (Bld) [#/Vol] 202.0 E9/L Normal 150.0-500. 0 [facility] Comment on above: Performed By: #### 2 096704, 57810305, 13179168, 3072522, 3605443, 14733463, 52539134 ####[address] [address] RBC (Bld) [#/Vol] 5.6 E12/L Normal 4.3-5.9 [facility] Comment on above: Performed By: #### 2 560098, 90599837, 46023018, 9557493, 2833956, 69456713, 91164100 ####[facility] [address] [place] [address] WBC corrected for nucl RBC Auto (Bld) [#/Vol] 9.4 E9/L Normal 4.0-11.0 [facility] Comment on above: Performed By: #### 2 235222, 86679732, 22694407, 1926934, 4994864, 13418797, 37807248 ####[facility] [address] [place] [address] CHEMISTRYOrdered By: SYSTEM SYSTEM on 02-10-2023 Anion gap [Moles/Vol] 14 mmol/L Normal 6 - 16 mEq/L [facility] Calcium [Mass/Vol] 9.7 mg/dL Normal 8.9 - 11. 1 mg/dL [facility] Chloride [Moles/Vol] 107 mmol/L Normal 101 - 1 11 mmol/L [facility] CO2 [Moles/Vol] 25 mmol/L Normal 21 - 31 mmol/L [facility] Creatinine [Mass/Vol] 1.4 mg/dL High 0.5 - 1.3 mg/dL [facility] eGFR 43 mL/min/1.73 m2 Low >=59mL/min /1.73 m2 [facility] Glucose [Mass/Vol] 84 mg/dL Normal 55 - 199 mg/dL [facility] Potassium [Moles/Vol] 4.8 mmol/L Normal 3.5 - 5.3 mmol/L [facility] Sodium [Moles/Vol] 141 mmol/L Normal 135 - 145 mmol/L [facility] Troponin 5.80 pg/mL Low 10.10 - 27.10 pg/mL [facility] Comment on above: Interpretive Data: T he 95% CI (Confidence Interval) PPV (Positive Predictive Value) for myocardial infarction in females is 38 pg/mL, in males 51 pg/mL. The results should be used in conjunction with clinical conditions of myocardial infarction. (Access High Sensitivity Troponin I Instructions For Use, Kavita Ton, September 2017) Urea nitrogen [Mass/Vol] 17 mg/dL Normal 5 - 21 mg/dL [facility] Urea nitrogen/Creatinine [Mass ratio] 12 mg/mg Normal 10 - 20 [facility] CHEMISTRYOrdered By: Esteal Reyna on 02-10-2023 Natriuretic peptide B (Bld) [Mass/Vol] 39 pg/mL Normal 5 - 80 pg/mL [facility] HemeAudubonSS COAGULATIONOrdered By: Veronica Guidry on 02-10-2023 aPTT Coag (PPP) [Time] 29.2 s Normal 25.1 - 36.5 second(s) [facility] Auto Coag Comment on above: Interpretive Data: Kacey diallo 15 days - 4 weeks 1 - 5 months 6 - 11 months 1 - 5 years 6 - 10 years 11 - 17 years PTT Mean: 35.4 (27.6-45.6) Mean: 33.5 (24.8-40.7) Mean: 32.4 (25.1-40.7) Mean: 31.6 (24.0-39.2) Mean: 31.6 (26.9-38.7) Mean: 31.0 (24.6-38.4) Pediatric Reference ranges were obtained from a study by Matt Barrera et al. prepared from 1437 samples obtained at 7 different centers using the same coagulation reagent and instrumentation as [facility]. Currently there are no coagulation studies available worldwide for children to 14 days, and no normal ranges. Heparin therapeutic range (represented by Anti-Factor Xa activity of 0.2 - 0.4 U/mL) corresponds to PTT of 56.6 - 109.0 sec. INR Coag (PPP) [Relative time] 1.0 {INR} Invalid Interpretation Code [facility] Auto Co[facility] Comment on above: Interpretive Data: I NR results are specifically intended to assess patients stabilized on long-term Anticoagulation therapy suggested INR s Less Intensive Anticoagulation 2.0 3.0 Conventional Range 3.0 4.5 PT Coag (PPP) [Time] 11.6 s Normal 9.4 - 1 2.5 second(s) [facility] Auto Coag Comment on above: Interpretive Data: 1 5 days - 4 weeks 1 - 5 months 6 -11 months 1 5 years 6 10 years 11 -17 years Mean: 11.2 (9.5 12.6) Mean: 11.0 (9.7 12.8) Mean: 11.0 (9.8 13.0) Mean: 11.3 (9.9 13.4) Mean: 11.7 (10.0 14.6) Mean: 11.8 (10.0 - 14.1) Pediatric Reference ranges were obtained from a study by Matt Barrera et al. prepared from 1437 samples obtained at 7 different centers using the same coagulation reagent and instrumentation as [facility]. Currently there are no coagulation studies available worldwide for children to 14 days, and no normal ranges. Consent for Treatmenton 01-19 Consent for Treatment [id number] Normal [facility] Discharge Instructionson Discharge Instructions [id number] F Normal [facility] ED Clinical Summaryon 2022 ED Clinical Summary (Inserted Image. Neelam ble to display) [place] [id number] ED Clinical Summary Person Information Name: DEYSI HERNANDEZ Trav/[facility] Age: 62 Years : 1960 Sex: Female Language: Iranian PCP: SHAIKH THOMPSON MD Marital Status: Visit Id: Visit Reason: Urinary frequency; Cough; Shortness of breath; SOB Speciality: Acuity: 2 Enc Type: Emergency Med Service: Emergency Arrival: 02/10/2023 14:37:39 Discharge: 02/10/2023 17:12:01 LOS: 000 02:35 Checkin: 02/10/2023 14:37:39 Checkout: 02/10/2023 17:12:01 Dispo Type: Home (Routine DC) EVENTS: Event Name Event Status Request Date/Time Start Date/Time Complete Date/Time Arrive Complete 02/10/2023 14:37:39 02/10/2023 14:37:39 02/10/2023 14:37:39 Document Home Meds Request 02/10/2023 14:37:39 Triage Complete 02/10/2023 14:37:39 02/10/2023 14:52:54 02/10/2023 14:52:54 Bed Assign Complete 02/10/2023 14:40:34 02/10/2023 14:40:34 02/10/2023 14:40:34 Dr Exam Complete 02/10/2023 14:40:34 02/10/2023 15:00:19 02/10/2023 15:00:19 RN Exam Complete 02/10/2023 14:40:34 02/10/2023 15:10:29 02/10/2023 15:10:29 Registration Complete 02/10/2023 14:41:03 02/10/2023 14:41:03 02/10/2023 14:41:03 Reg Complete Request 02/10/2023 14:41:03 Reg Bed Request Complete 02/10/2023 14:41:03 02/10/2023 14:41:03 02/10/2023 14:41:03 EKG Complete 02/10/2023 14:46:55 02/10/2023 14:52:31 Registration Request 02/10/2023 15:00:19 Dr Exam Complete 02/10/2023 15:04:49 02/10/2023 15:04:49 02/10/2023 15:04:49 Pending Labs Request 02/10/2023 15:14:26 Lab Complete 02/10/2023 15:14:26 02/10/2023 15:50:55 Meds Admin Complete 02/10/2023 15:14:26 02/10/2023 15:28:53 Patient Care Request 02/10/2023 15:14:26 X-Ray Complete 02/10/2023 15:14:26 02/10/2023 15:33:31 02/10/2023 15:57:42 RT Request 02/10/2023 15:14:26 Swab Complete 02/10/2023 15:14:26 02/10/2023 15:50:55 RT Tx/ABG Request 02/10/2023 15:14:26 RT Tx/ABG Request 02/10/2023 15:14:27 Pending Labs Complete 02/10/2023 15:19:36 02/10/2023 15:19:36 02/10/2023 15:47:33 Lab Complete 02/10/2023 15:19:36 02/10/2023 15:19:36 02/10/2023 15:47:33 Pending Labs Complete 02/10/2023 15:28:19 02/10/2023 15:28:19 02/10/2023 15:28:26 Lab Complete 02/10/2023 15:28:19 02/10/2023 15:28:19 02/10/2023 15:28:26 Wet Read Request 02/10/2023 15:57:42 Meds Admin Request 02/10/2023 16:14:01 Meds Admin Cancel 02/10/2023 16:14:17 02/10/2023 16:15:17 Meds Admin Complete 02/10/2023 16:15:35 02/10/2023 17:03:27 Meds Admin Complete 02/10/2023 16:15:58 02/10/2023 17:03:28 Discharge Complete 02/10/2023 16:16:44 02/10/2023 17:12:09 02/10/2023 17:12:09 Transfer Complete 02/10/2023 17:12:09 02/10/2023 17:12:09 02/10/2023 17:12:09 ADDRESS: [address] [facility] [phone] PHYS DOC NOTES: MEDICAL INFORMATION: Prescriptions Given: New Medications [facility]/pharmacy #[id number], [address], [place] [id number], [phone] cefdinir (cefdinir 300 mg Cap) 1 Capsules By Mouth every 12 hours for 7 Days. Refills: 0. predniSONE (predniSONE 20 mg Tab) 3 Tablets By Mouth every day for 5 Days. Refills: 0. Medications to Continue with No Changes Other Medications albuterol (Pro-Air HFA CFC free 90 mcg/inh MDI) atorvastatin By Mouth every day. lisinopril metoprolol (metoprolol 100 mg ER Tab) 1 Tablets By Mouth every day. Misc Prescription ([facility] ASPIRIN EC 81 MG TABLET) 0. omeprazole (omeprazole 40 mg Cap-DR) 1 Capsules By Mouth every day. Refills: 2. PATIENT EDUCATION INFORMATION: Instructions: Urinary Tract Infection, Adult, [id number]; Acute Bronchitis, Adult Follow up: With: Address: When: SHAIKH DONNA [address] [place] [id number] [employer] (1) In 3 days 02/13/2023 Comments: Follow-up with your primary care provider in 3 to 5 days. If symptoms worsen, do not improve, or new symptoms arise please report back to emergency department for further evaluation. DIAGNOSIS: Bronchitis; UTI (urinary tract infection) Normal [facility] ED Note-Nursingon 02-10-2023 ED Note-Nursing EKG late due to vanessa ent being in the bathroom when called. Normal [facility] ED Note-Physicianon 02-11-20 ED Note-Physician Basic Information Time Seen: Raymundo BRIDGES, Keon Samuel. 02/10/2023 15:00 Chief Complaint Pt with hx of CKD presents with worsening SOB since yesterday. Denies lung hx, but has had recent bronchitis, no current meds for it. Cough with white frothy sputum. Dx with UTI at urgent care, but not given meds. History of Present Illness 62-year-old female reports to the emergency department with chief complaint of worsening shortness of breath. Reports that she does have a history of smoking. Has had bronchitis previously. Reports that she does smoke, but has no current diagnosis of possible COPD. States that she has been having little bit more of a sputum with this. Reports that she did go to urgent care before this, did diagnose her with a UTI. Reports not given any medications and sent over here. Reports otherwise she is not having any chest pain. Reports only on blood pressure medicines. Denies any blood thinner use. States that little bit worse with exertion with shortness of breath, but thinks it is likely either viral or because of her smoking. Denies any pains. Afebrile Review of Systems A 10 point review of systems is negative except as noted above. Medical and Surgical History: Reviewed and noted Social history: Lives at home Family History: Reviewed. Tobacco: user Physical Exam Vitals & Measurements T: 36.8 ?C(Oral) HR: 91(Monitored) RR: 20 BP: 173/89 SpO2: 94% HT: 163 cm WT: 70 kg BMI: 26.35 General: The patient appears well and in no apparent distress. Patient is resting comfortably on bed. Skin: Warm, dry, no pallor noted. Head: Normocephalic, atraumatic Neck: No JVD Eye: PERRLA, EOMI ENT: Moist mucus membranes Cardiovascular: Regular rate normal peripheral perfusion. Radial pulses +2 bilaterally Respiratory: No respiratory distress no accessory muscle use no obvious audible wheezing. Mild wheezing heard on the lung examination. Chest Wall: no deformity Musculoskeletal: normal ROM, no deformity, no swelling GI: No obvious distention soft nontender nondistended no guarding rebounding or rigidity Neurological: A&O moves all extremities equal strength and symmetry Psychiatric: Cooperative and appropriate Medical Decision Making MEDICAL DECISION MAKING Number and Complexity of Problems Differential Diagnosis: MDM Data External documents reviewed: [] My EKG interpretation: Reviewed My CT interpretation: [] My X-ray interpretation: Reviewed My Ultrasound interpretation: [] Decision rules/scores evaluated: [] Discussed with: [] Treatment and Disposition ED Course: 62-year-old female reports to the emergency department with chief complaint of shortness of breath, as well as UTI symptoms. Reports has been short of breath over the last couple days. Reports history of smoking. No known history of COPD, but reports that she does get bronchitis quite frequently. Denies any fevers or chills. Denies any chest pain with this. Physical exam of the patient reveals patient was resting comfortably in the bed, but does have mild to moderate wheezing on lung sounds examination. No belly tenderness. Reports that she has had increased frequency. Due to her concerns, we did do lab work, chest x-ray EKG is well. I was able to review her urine from the urgent care visit, and it did show nitrate positive UTI. Due to this, we will treat with antibiotics. Lab work was benign. She reports that she does have CKD, which is correlating with her creatinine and GFR. No other acute findings. Discussed likely a bronchitis as well as UTI. Due to this, patient started on cefdinir for appropriate coverage. Patient also started on prednisone for likely COPD/bronchitis workup and treatment. Discussed return precautions. Follow-up with your primary care provider in 3 to 5 days. If symptoms worsen, do not improve, or new symptoms arise please report back to emergency department for further evaluation. The patient was understanding and agreeable to plan moving forward. []The patient has acute bronchitis/bronchiolitis and antibiotics were not prescribed or dispensed today.[SATISFIES MIPS PERFORMANCE] [] The patient has acute bronchitis/bronchiolitis. Antibiotics were prescribed or dispensed because the patient meets one of the following: [MIPS PERFORMANCE EXCEPTION/EXCLUSION] [x] Patient has a medical reason for prescribing or dispensing an antibiotic. That reason is patient has history of smoking likely COPD exacerbation requiring antibiotics (ex. COPD, bacterial infection, acute sinusitis, etc.). [] Patient is currently on antibiotics or has been in the last 30 days. [] Patient?s visit resulted in an inpatient admission. []The patient has acute bronchitis/bronchiolitisa nd antibiotics were prescribed or dispensed today. [DOES NOT SATISFY MIPS PERFORMANCE] Shared decision making: [] Code status: [] Assessment/Plan Bronchitis (J40: Bronchitis, not specified as acute or chronic) UTI (urinary tract infection) (N39.0: Urin (more content not included)... Normal [facility] Comment on above: Result Comment: Elec tronically Signed By: Keon Fonseca PA-C\.br\Date and Time Signed: 02/10/23 16:31 EST\.br\Electronically Co-Signed By: Gabby De Oliveira M.D.\.br\Date and Time Co-Signed: 02/10/23 17:38 EST ED Patient Education Noteon 02-10-2023 ED Patient Education Note Obstetrics and Gynecology Urinary Tract Infection, Adult A urinary tract infection (UTI) is an infection of any part of the urinary tract. The urinary tract includes: ? The kidneys. ? The ureters. ? The bladder. ? The urethra. These organs make, store, and get rid of pee (urine) in the body. What are the causes? This infection is caused by germs (bacteria) in your genital area. These germs grow and cause swelling (inflammation) of your urinary tract. What increases the risk? The following factors may make you more likely to develop this condition: ? Using a small, thin tube (catheter) to drain pee. ? Not being able to control when you pee or poop (incontinence). ? Being female. If you are female, these things can increase the risk: ? Using these methods to prevent : ? A medicine that kills sperm (spermicide). ? A device that blocks sperm (diaphragm). ? Having low levels of a female hormone (estrogen). ? Being . You are more likely to develop this condition if: ? You have genes that add to your risk. ? You are sexually active. ? You take antibiotic medicines. ? You have trouble peeing because of: ? A prostate that is bigger than normal, if you are male. ? A blockage in the part of your body that drains pee from the bladder. ? A kidney stone. ? A nerve condition that affects your bladder. ? Not getting enough to drink. ? Not peeing often enough. ? You have other conditions, such as: ? Diabetes. ? A weak disease-fighting system (immune system). ? Sickle cell disease. ? Gout. ? Injury of the spine. What are the signs or symptoms? Symptoms of this condition include: ? Needing to pee right away. ? Peeing small amounts often. ? Pain or burning when peeing. ? Blood in the pee. ? Pee that smells bad or not like normal. ? Trouble peeing. ? Pee that is cloudy. ? Fluid coming from the vagina, if you are female. ? Pain in the belly or lower back. Other symptoms include: ? Vomiting. ? Not feeling hungry. ? Feeling mixed up (confused). This may be the first symptom in older adults. ? Being tired and grouchy (irritable). ? A fever. ? Watery poop (diarrhea). How is this treated? ? Taking antibiotic medicine. ? Taking other medicines. ? Drinking enough water. In some cases, you may need to see a specialist. Follow these instructions at home: Medicines ? Take jtxf-nty-xrovcuw and prescription medicines only as told by your doctor. ? If you were prescribed an antibiotic medicine, take it as told by your doctor. Do not stop taking it even if you start to feel better. General instructions ? Make sure you: ? Pee until your bladder is empty. ? Do not hold pee for a long time. ? Empty your bladder after sex. ? Wipe from front to back after peeing or pooping if you are a female. Use each tissue one time when you wipe. ? Drink enough fluid to keep your pee pale yellow. ? Keep all follow-up visits. Contact a doctor if: ? You do not get better after 1?2 days. ? Your symptoms go away and then come back. Get help right away if: ? You have very bad back pain. ? You have very bad pain in your lower belly. ? You have a fever. ? You have chills. ? You feeling like you will vomit or you vomit. Summary ? A urinary tract infection (UTI) is an infection of any part of the urinary tract. ? This condition is caused by germs in your genital area. ? There are many risk factors for a UTI. ? Treatment includes antibiotic medicines. ? Drink enough fluid to keep your pee pale yellow. This information is not intended to replace advice given to you by your health care provider. Make sure you discuss any questions you have with your health care provider. Document Revised: 09/16/2020 Document Reviewed: 09/16/2020 [employer] Patient Education ? 2022 [employer] ([employer]). Pulmonary Medicine Acute Bronchitis, Adult Acute bronchitis is sudden inflammation of the main airways (bronchi) that come off the windpipe (trachea) in the lungs. The swelling causes the airways to get smaller and make more mucus than normal. This can make it hard to breathe and can cause coughing or noisy breathing (wheezing). Acute bronchitis may last several weeks. The cough may last longer. Allergies, asthma, and exposure to smoke may make the condition worse. What are the causes? This condition can be caused by germs and by substances that irritate the lungs, including: ? Cold and flu viruses. The most common cause of this condition is the virus that causes the common cold. ? Bacteria. This is less common. ? Breathing in substances that irritate the lungs, including: ? Smoke from cigarettes and other forms of tobacco. ? Dust and pollen. ? Fumes from household cleaning products, gases, or burned fuel. ? Indoor or outdoor air pollution. What increases the risk? The f (more content not included)... Normal [facility] ED Patient Summaryon 023 ED Patient Summary (Inserted Image. Neelam ble to display) [address] [address] Patient Discharge Instructions Person Information Name: DEYSI HERNANDEZ Age: 62 Years Arrival Date: 02/10/2023 14:37:39 Discharge Diagnosis: Bronchitis; UTI (urinary tract infection) Primary Care Physician: SHAIKH THOMPSON MD Provider Information Primary Provider: Gabby De Oliveira M.D. Advanced Broadcast Designer:None The exam and treatment you received in the Emergency Department were for an urgent problem and are not intended as complete care. It is important that you follow up with a doctor, nurse practitioner, or physician?s reproductive healthcare assistant for ongoing care. If your symptoms become worse or you do not improve as expected and you are unable to reach your usual health care provider, you should return to the Emergency Department. We are available 24 hours a day. DEYSI HERNANDEZ has been given the following list of patient education materials, prescriptions and follow-up instructions: Follow-up Instructions: With: Address: When: SHAIKH DONNA [address], [place] [phone] Business (1) In 3 days 02/13/2023 Comments: Follow-up with your primary care provider in 3 to 5 days. If symptoms worsen, do not improve, or new symptoms arise please report back to emergency department for further evaluation. In the event that this physician does not participate in your insurance network, please consult with your insurance company to find a nearby participating provider. Patient Education Materials: Urinary Tract Infection, Adult, Gbjq-se-Jabx; Acute Bronchitis, Adult A MESSAGE TO ALL PATIENTS REGARDING OPIOIDS PRESCRIPTION OPIOIDS: WHAT YOU NEED TO KNOW Prescription opioids can be used to help relieve vjgvermy-gt-vctiro pain and are often prescribed following a surgery or injury, or for certain health conditions. These medications can be an important part of the treatment but also come with serious risks. It is important to work with your healthcare provider to make sure you are getting the safest, most effective care. WHAT ARE THE RISKS AND SIDE EFFECTS OF OPIOID USE? Prescription opioids carry serious risks of addiction and overdose, especially with prolonged use. An opioid overdose, often marked by slowed breathing, can cause sudden . The use of prescription opioids can have a number of side effects as well, even when taken as directed: ? Tolerance?meaning you might need to take more of the medication for the same pain relief ? Physical dependence?meaning you have symptoms of withdrawal when a medication is stopped ? Increased sensitivity to pain ? Constipation ? Nausea, vomiting, and dry mouth ? Sleepiness and dizziness ? Confusion ? Depression ? Low levels of testosterone that can result in lower sex drive, energy, and strength ? Itching and sweating RISKS ARE GREATER WITH: ? History of drug misuse, substance use disorder, or overdose ? Mental health conditions (such as depression or anxiety) ? Sleep apnea ? Older age (65 years and older) ? Avoid alcohol while taking prescription opioids. Also, unless specifically advised by your health care provider, medications to avoid include: ? Benzodiazepines (such as Xanax or Valium) ? Muscle relaxants (such as Soma or Flexeril) ? Hypnotics (such as Ambien or Lunesta) ? Other prescription opioids KNOW YOUR OPTIONS Talk to your health care provider about ways to manage your pain that don?t involve prescription opioids. Some of these options may actually work better and have fewer risks and side effects. Options may include: ? Pain relievers such as acetaminophen, ibuprofen, and naproxen ? Some medication that are also used for depression or seizures ? Physical therapy and exercise ? Cognitive behavioral therapy, a psychological, goal-directed approach, in which patients learn how to modify physical, behavioral, and emotional triggers of pain and stress. IF YOU ARE PRESCRIBED OPIOIDS FOR PAIN: ? Never take opioids in greater amounts or more often than prescribed. ? Follow up with your primary health care provider. o Work together to create a plan on how to manage your pain. o Talk about ways to help manage your pain that don?t involve prescription opioids. o Talk about any and all concerns and side effects. ? Help prevent misuse and abuse o Never sell or share prescription opioids. o Never use another person?s prescription opioids. ? Store prescription opioids in a secure place and out of reach of others (this may include visitors, children, friends, and family). ? Safely dispose of unused prescription opioids: Find your community drug take-back program or your pharmacy mail-back program, or flush them down the toilet, following guidance from the Food and Drug Administration (www.fda.gov/Drugs/Resour cesForYou). ? Visit www.cdc.gov/ (more content not included)... Normal [facility] Family Medicine Office/[place] 02-10-2023 Family Medicine Office/Clinic Note Chief Complaint poss uti, cough and congestion HPI Staff complaints of cough Onset: 2 days Characteristics: SOB, chest congestion, sore throat OTC tried: none Dysuria: Onset: 1 days Symptoms: pain during urination OTC used: none Last UTI: 09/2022 Hx of kidney stones: yes UA in office documented in chart History of Present Illness 62-year-old female to the clinic for 2 complaints. Complaint 1 is that of a 2 to 3-day history of worsening shortness of breath, orthopnea air hunger. She denies any upper respiratory congestion, sore throat or chest pain. She has noted that she is unable to sleep even at a slight elevation. She has to sit completely up or stand to be able to breathe properly. She has no history of congestive heart failure or any chronic respiratory diseases that we are aware of. Her room air pulse oximetry on arrival today was 92%. The last was during a UTI visit back in September which we believe was 96%. She states that it is worsening rapidly. Her second complaint is that of urinary frequency, discomfort in the suprapubic area, frequency. A UTI was done on arrival here and shows positive for leukocytes, nitrites and blood. Her focal evaluation is on her respiratory status. She is having difficulty completing sentences due to her shortness of breath. And she appears to be using excessive accessory muscles to breathe. After a brief discussion I advised her of my concerns and we have decided that we will send her to the emergency department for further evaluation and treatment of her hypoxia, air hunger and orthopnea. Review of Systems PHQ Score Initial Depression Screen Score: 0 SCORE Constitutional: No recorded fevers in the last couple of days. She states that she feels very ill Head/Ears/Nose/Throat: Denies earache or sore throat Respiratory: See HPI above Cardiovascular: Denies chest pain GI/ : Denies abdominal pain, n/v. Complains of suprapubic discomfort and soreness in the urinary tract area as well as frequency and urgency. Musculoskeletal: Denies Joint pain, Denies muscle pain Neurologic: Denies Headache, Denies focal neuro symptoms Physical Exam Vitals & Measurements T: 36 ?C(Temporal Artery) HR: 88(Peripheral) BP: 140/90 SpO2: 92% HT: 64 in HT: 163 cm WT: 70 kg WT: 154 lb BMI: 26.35 Primary assessment: Airway patent. Respirations are significantly labored. Increased respiratory effort with inability to complete sentences due to shortness of breath. Constitutional: Vital signs reviewed. Patient appears ill and is in certain respiratory distress Psychiatric: Mental status appropriate. Normal affect Skin: Warm and dry. Thorax/ Respiratory: Respiratory effort unlabored. Breath sounds are distant with very few wispy wheezes noted throughout the lung moses particularly posterior Neurologic: Alert and oriented Assessment/Plan 1. Hypoxia (R09.02: Hypoxemia) Ordered: Office Visit No Charge 2. Orthopnea (R06.01: Orthopnea) Ordered: Office Visit No Charge 3. UTI (urinary tract infection), uncomplicated (N39.0: Urinary tract infection, site not specified) Ordered: Office Visit No Charge 4. Air hunger (R09.89: Other specified symptoms and signs involving the circulatory and respiratory systems) Ordered: Office Visit No Charge Dysuria (R30.0: Dysuria) Ordered: Urine Culture -We did have a discussion about my concerns of her respiratory status and decided to send her to the emergency department at [facility]. She was offered EMS transfer but she feels comfortable that her significant other can drive her to the hospital. -I have advised her to make sure they are aware of her urinary track issue and then antibiotic will need to be prescribed. We will allow the emergency department to finish up on the same. Follow-up No qualifying data available Problem List/Past Medical History Ongoing Alkalosis Atrophy of kidney Cardiac enzyme or marker above reference range Chronic kidney disease stage 3B. Dysphagia Dysphagia Erythrocytosis Ex-smoker Gastroesophageal reflux disease without esophagitis History of endometrial ablation Hyperlipidemia Hypertension Hypertensive renal disease Increased frequency of urination Mixed hyperlipidemia Orthostatic hypotension Screen for colon cancer Smoker Smoker Stress incontinence, female Tobacco user Historical Embolic stroke Embolic stroke Essential hypertension None Procedure/Surgical History None. Medications atorvastatin, Oral, Daily [facility] ASPIRIN EC 81 MG TABLET, 0 lisinopril metoprolol 100 mg ER Tab, 100 mg= 1 tab(s), Oral, Daily omeprazole 40 mg Cap-DR, 40 mg= 1 cap(s), Oral, Daily, 2 refills Pro-Air HFA CFC free 90 mcg/inh MDI Allergies codeine (Swelling, Unknown, swelling and itching) Social History Alcohol - Low Risk, 06/16/2017 Current, Wine, 1-2 times per year, Alcohol use interferes with work or home: No. Drinks more than intended: No. Others hurt by (more content not included)... Normal [facility] Comment on above: Result Comment: Elec tronically Signed By: Alex BRIDGES, Jaxson Concepcion\.br\Date and Time Signed: 02/10/23 14:46 EST HEMATOLOGYOrdered By: SYSTEM SYSTEM on 02-10-2023 Basophils/100 WBC (Bld) 1.3 % Normal 0.0 - 2.0 % [facility] HemeAutoSS Basophils/Leukocytes Auto (Bld) [Pure # fraction] 0.1 E9/L Normal 0.0 - 0.2 E9/L [facility]eAutoSS Eosinophils/100 WBC (Bld) 1.5 % Normal 0.0 - 8.0 % [facility] HemeAutoSS Eosinophils/Leukocytes Auto (Bld) [Pure # fraction] 0.1 E9/L Normal 0.0 - 0.5 E9/L [facility]eAuto[facility] Lymphocytes/100 WBC (Bld) 16.8 % Normal 14.0 - 50.0 % [facility] HemeAutoSS Lymphocytes/Leukocytes Auto (Bld) [Pure # fraction] 1.6 E9/L Normal 1.0 - 4.0 E9/L [facility]eAutoSS Monocytes/100 WBC (Bld) 9.8 % Normal 4.0 - 14.0 % [facility] HemeAutoSS Monocytes/Leukocytes Auto (Bld) [Pure # fraction] 0.9 E9/L Normal 0.2 - 1.0 E9/L [facility] Neutrophils/100 WBC (Bld) 70.6 % Normal 36.0 - 75.0 % [facility] HemeAutoSS Neutrophils/Leukocytes Auto (Bld) [Pure # fraction] 6.7 E9/L Normal 2.0 - 7.5 E9/L [facility] HEMATOLOGYOrdered By: Estela Reyna on 02-10-2023 Erythrocyte distribution width (RBC) [Ratio] 14.4 % High 10.9 - 14.2 % [facility] Hematocrit (Bld) [Volume fraction] 50.0 % High 34.0 - 46.0 % [facility]eAuto[facility] Hemoglobin (Bld) [Mass/Vol] 16.8 g/dL High 12.0 - 16.0 gm/dL [facility] MCH (RBC) [Entitic mass] 30.1 pg Normal 27.0 - 34.0 pg FT HemeAutoSS MCHC (RBC) [Mass/Vol] 33.7 g/dL Normal 31.4 - 36.0 gm/dL [facility] HemeAutoSS MCV (RBC) [Entitic vol] 89.4 fL Normal 80.0 - 100.0 fL [facility]eAutoSS Platelet mean volume (Bld) [Entitic vol] 8.0 fL Normal 6.4 - 10.8 fL [facility] HemeAutoSS Platelets (Bld) [#/Vol] 202.0 E9/L Normal 150.0 - 500.0 E9/L [facility] RBC (Bld) [#/Vol] 5.6 E12/L Normal 4.3 - 5.9 E12/L [facility] HemeAutoSS WBC corrected for nucl RBC Auto (Bld) [#/Vol] 9.4 E9/L Normal 4.0 - 11.0 E9/L [facility] HemeAutoSS Influenza A&B Agon Influenzae A Ag Negative Normal Negative [facility] Comment on above: Performed By: #### 1 [id number] #### [facility] [address] [place] [address] Influenzae B Ag Negative Normal Negative [facility] Comment on above: Result Comment: Test sensitivity and specificity vary for age group, specimen type, antigen types, and prevalence of disease. Test results must be evaluated in conjunction with other clinical data available to the physician. Individuals who received nasally administered Influenza A vaccine may have positive test results up to 3 days after vaccination. Performed By: #### 1 [id number], [id number] #### [facility] [address] [place] [address] MICRO OTHER TESTSOrdered By: Trudy Guidry on 02-10-2023 Influenzae A Ag Negative (02/10/23 3:25 PM) Normal Negative [facility] Man Sero Influenzae B Ag Negative 1 (02/10/23 3:25 PM) Normal Negative [facility] Man Sero Comment on above: Interpretive Data: T est sensitivity and specificity vary for age group, specimen type, antigen types, and prevalence of disease. Test results must be evaluated in conjunction with other clinical data available to the physician. Individuals who received nasally administered Influenza A vaccine may have positive test results up to 3 days after vaccination. Rapid COV Int NEG Ctl Pass (02/10/23 3:25 PM) Normal [facility] Man Sero Rapid COV Int POS Ctl Pass (02/10/23 3:25 PM) Normal [facility] Man Sero SARS-CoV+SARS-CoV-2 (COVID-19) Ag IA.rapid Ql (Resp) Not Detected 6 (02/10/23 3:25 PM) Normal Not Detected [facility] Man Sero Comment on above: Interpretive Data: Suma hector Sputnik8 Veritor System for Rapid Detection of SARS-CoV-2 is a chromatographic digital immunoassay intended for the direct and qualitative detection of SARS-CoV-2 nucleocapsid antigens in nasal swabs from individuals who are suspected of COVID-19 by their healthcare provider within the first five days of the onset of symptoms. Negative results should be treated as presumptive, do not rule out SARS-CoV-2 infection and should not be used as the sole basis for treatment or patient management decisions, including infection control decisions. Negative results should be considered in the context of a patient s recent exposures, history and the presence of clinical signs and symptoms consistent with COVID-19, and confirmed with a molecular assay, if necessary, for patient management. For in vitro diagnostic use. In the [place], only for use under an Emergency Use Authorization. In the [place], this test has not been FDA cleared or approved; this test has been authorized by FDA under an EUA for use by authorized laboratories; use by laboratories certified under the CLIA, 42 U.S.C. 263a, that meet requirements to perform moderate, high, or waived complexity tests and at the Point of Care (POC), i.e., in patient care settings operating under a CLIA Certificate of Waiver, Certificate of Compliance, or Certificate of Accreditation. This test has been authorized only for the detection of proteins from SARS-CoV-2, not for any other viruses or pathogens; and, in the [place], this test is only authorized for the duration of the declaration that circumstances exist justifying the authorization of emergency use of in vitro diagnostics for detection and/or diagnosis of the virus that causes COVID-19 under Section 564(b)(1) of the Act, 21 U.S.C. 360bbb-3(b)(1), unless the authorization is terminated or revoked sooner. PT & PTTon 02-10-2023 aPTT Coag (PPP) [Time] 29.2 second(s) Normal 25.1-36.5 [facility] Comment on above: Result Comment: Para meter 15 days - 4 weeks 1 - 5 months 6 - 11 months 1 - 5 years 6 - 10 years 11 - 17 years PTT Mean: 35.4 (27.6-45.6) Mean: 33.5 (24.8-40.7) Mean: 32.4 (25.1-40.7) Mean: 31.6 (24.0-39.2) Mean: 31.6 (26.9-38.7) Mean: 31.0 (24.6-38.4) Pediatric Reference ranges were obtained from a study by sha Alejandre al. prepared from 1437 samples obtained at 7 different centers using the same coagulation reagent and instrumentation as [facility]. Currently there are no coagulation studies available worldwide for children to 14 days, and no normal ranges. Heparin therapeutic range (represented by Anti-Factor Xa activity of 0.2 - 0.4 U/mL) corresponds to PTT of 56.6 - 109.0 sec. Performed By: #### 2 [id number] ####[facility] [address] [place] [address] INR Coag (PPP) [Relative time] 1.0 {INR} Invalid Interpretation Code [facility] Comment on above: Result Comment: INR results are specifically intended to assess patients stabilized on long-term Anticoagulation therapy suggested INR?s ?Less Intensive Anticoagulation? 2.0 ? 3.0 Conventional Range 3.0 ? 4.5 Performed By: #### 2 [id number] ####[facility] [address] [place] [address] PT Coag (PPP) [Time] 11.6 second(s) Normal 9.4-12.5 [facility] Comment on above: Result Comment: 15 d ays - 4 weeks 1 - 5 months 6 -11 months 1 ? 5 years 6 ? 10 years 11 -17 years Mean: 11.2 (9.5 ? 12.6) Mean: 11.0 (9.7 ? 12.8) Mean: 11.0 (9.8 ? 13.0) Mean: 11.3 (9.9 ? 13.4) Mean: 11.7 (10.0 ? 14.6) Mean: 11.8 (10.0 - 14.1) Pediatric Reference ranges were obtained from a study by Matt Barrera et al. prepared from 1437 samples obtained at 7 different centers using the same coagulation reagent and instrumentation as [facility]. Currently there are no coagulation studies available worldwide for children to 14 days, and no normal ranges. Performed By: #### 2 [id number] ####[facility] [address] [place] [address] Rapid COVID Antigen ([facility])on 02-10-2023 Rapid COV Int NEG Ctl Pass Normal [facility] Comment on above: Performed By: #### 1 [id number] #### [facility] [address] [place] [address] Rapid COV Int POS Ctl Pass Normal [facility] Comment on above: Performed By: #### 1 [id number] #### [facility] [address] [place] [address] SARS-CoV+SARS-CoV-2 (COVID-19) Ag IA.rapid Ql (Resp) Not detected Normal Not Detected [facility] Comment on above: Result Comment: The Sputnik8 Veritor? System for Rapid Detection of SARS-CoV-2 is a chromatographic digital immunoassay intended for the direct and qualitative detection of SARS-CoV-2 nucleocapsid antigens in nasal swabs from individuals who are suspected of COVID-19 by their healthcare provider within the first five days of the onset of symptoms. Negative results should be treated as presumptive, do not rule out SARS-CoV-2 infection and should not be used as the sole basis for treatment or patient management decisions, including infection control decisions. Negative results should be considered in the context of a patient?s recent exposures, history and the presence of clinical signs and symptoms consistent with COVID-19, and confirmed with a molecular assay, if necessary, for patient management. For in vitro diagnostic use. In the [place], only for use under an Emergency Use Authorization. In the [place], this test has not been FDA cleared or approved; this test has been authorized by FDA under an EUA for use by authorized laboratories; use by laboratories certified under the CLIA, 42 U.S.C. ?263a, that meet requirements to perform moderate, high, or waived complexity tests and at the Point of Care (POC), i.e., in patient care settings operating under a CLIA Certificate of Waiver, Certificate of Compliance, or Certificate of Accreditation. This test has been authorized only for the detection of proteins from SARS-CoV-2, not for any other viruses or pathogens; and, in the [place], this test is only authorized for the duration of the declaration that circumstances exist justifying the authorization of emergency use of in vitro diagnostics for detection and/or diagnosis of the virus that causes COVID-19 under Section 564(b)(1) of the Act, 21 U.S.C. ? 360bbb-3(b)(1), unless the authorization is terminated or revoked sooner. Performed By: #### 1 [id number], [id number] #### [facility] [address] [place] [address] Troponin 0 Hr.on 02-10-2023 Troponin 5.80 pg/mL Low 10.10-27.1 0 [facility] Comment on above: Result Comment: The 95% CI (Confidence Interval) PPV (Positive Predictive Value) for myocardial infarction in females is 38 pg/mL, in males 51 pg/mL. The results should be used in conjunction with clinical conditions of myocardial infarction. (Access High Sensitivity Troponin I Instructions For Use, Kavita La Vernia, September 2017) Performed By: #### 2 [id number] ####[facility] [address] [place] [address] XR Chest Single Viewon 02-10 XR Chest Single View Exam Date/Time: 02/10/2023 15:57 EST Reason for Exam: Cough Report IMPRESSION: There are no acute cardiopulmonary changes. CLINICAL HISTORY: Cough EXAMINATION: XR Chest Single View COMPARISON: Chest x-ray from 06/16/2017 FINDINGS: The cardiomediastinal silhouette is unremarkable. The lungs are free of infiltrates effusions or consolidations. There are no acute osseous changes. Ordering Provider: Keon Fonseca FINAL REPORT Dictated: 02/10/2023 4:55 pm Zeke Weeks MD, V. Signed (Electronic Signature): 02/10/2023 4:55 pm Signed by: Zeke Weeks MD, V. Transcribed by: RACHELLE Technologist: DEBBIE Technical Comments Radiation Dose: Ka,r in mGy = na DAP = na Normal [facility] eGFRon 02-10-2023 eGFR 43 mL/min/1.73 m2 Low >=59 [facility] Comment on above: Order Comment: Order added by Discern Expert. Performed By: #### [id number] ####[facility] [id number] [place] [address] [facility] 10-26-2022 NATALIIA Telephone (AARON) ----- HILARIODEYSI ([id number]) 1960 F Date Time Provider Department 10/26/22 DEBRA FISHMAN During your visit today, we recorded the following information about you: Debra Fishman MD 10/26/2022 5:52 PM Signed I received a message on 10/25 the patient contacted our office and requested a call back. I called the patient on 10/25 at 1:30 PM and 6:30 PM and then again on 10/26 at 5:45 PM per her request. Patient did not answer the phone, I left her a voice messages. She can contact our office if still has a question. I will also send her a Wardrobe Housekeeper message encouraging communicate via Wardrobe Housekeeper if needed. Debra Fishman MD Staff, Department of Kidney Medicine 10/26/22 5:49 PM Allergies As of Date: 10/26/2022 Noted Allergy Reaction CODEINE 09/07/2014 7 - Swelling Date Reviewed: 10/09/2022 Reviewed by: Rosie Harris DO - Fully Assessed Reason for Visit: Patient Question [0107] Prescriptions as of 10/26/2022 - lisinopril (ZESTRIL) 5 mg tablet Take 1 tablet by mouth once daily. - aspirin, enteric coated (ASPIRIN, ENTERIC COATED) 81 mg EC tablet 81 mg. - metoprolol succinate ER (TOPROL XL) 100 mg Take 100 mg by mouth. - atorvastatin (LIPITOR) 40 mg tablet - VENTOLIN HFA 90 mcg/actuation inhaler Problem List As Of Date 10/26/2022 Noted Resolved Hypercholesteremia [E78.00] 09/07/2014 Tobacco abuse [Z72.0] 09/07/2014 History of endometrial ablation [Z98.890] 02/08/2016 Erythrocytosis [D75.1] 03/14/2016 Encounter for screening for malignant neoplasm *03/27/2016 10/09/2022 Stage 3 chronic kidney disease (HCC) [N18.30] 10/09/2022 Hypertension, renal disease [I12.9] 10/09/2022 Mixed hyperlipidemia [E78.2] 10/09/2022 Encounter Status:Closed by DEBRA FISHMAN on 10/26/22 [facility] Lizbet 10-25-2022 [facility] ----- DEYSI HERNANDEZ ([id number]) 1960 F Date Time Provider Department 10/25/22 DEBRA FISHMAN During your visit today, we recorded the following information about you: Linn Solis Ma 10/25/2022 12:36 PM Signed Patient called the office very upset because today at here appointment with Kidney Medicine she was seen by another provider and it wasn't her kidney doctor. She would like Dr. Fishman call her back at [phone] because she has lots of questions that the patient wants answers to and the patient is requesting that the provider calls her back after 5:30 pm due to the patient works that late Saturday thru Saturday Allergies As of Date: 10/25/2022 Noted Allergy Reaction CODEINE 09/07/2014 7 - Swelling Date Reviewed: 10/09/2022 Reviewed by: Rosie Harris DO - Fully Assessed Reason for Visit: Patient Question [5667] Prescriptions as of 10/25/2022 - lisinopril (ZESTRIL) 5 mg tablet Take 1 tablet by mouth once daily. - aspirin, enteric coated (ASPIRIN, ENTERIC COATED) 81 mg EC tablet 81 mg. - metoprolol succinate ER (TOPROL XL) 100 mg Take 100 mg by mouth. - atorvastatin (LIPITOR) 40 mg tablet - VENTOLIN HFA 90 mcg/actuation inhaler Problem List As Of Date 10/25/2022 Noted Resolved Hypercholesteremia [E78.00] 09/07/2014 Tobacco abuse [Z72.0] 09/07/2014 History of endometrial ablation [Z98.890] 02/08/2016 Erythrocytosis [D75.1] 03/14/2016 Encounter for screening for malignant neoplasm *03/27/2016 10/09/2022 Stage 3 chronic kidney disease (HCC) [N18.30] 10/09/2022 Hypertension, renal disease [I12.9] 10/09/2022 Mixed hyperlipidemia [E78.2] 10/09/2022 Encounter Status:Closed by LINN SOLIS MA on 10/25/22 Normal [facility] Urineon 10-18-2022 Bacteria identified Cx Nom (U) Microbiology PROCEDURE: Urine Culture [R1] SOURCE: U CleanCatch BODY SITE: COLLECTED DATE/TIME: 10/15/2022 18:09 EDT RECEIVED DATE/TIME: 10/16/2022 12:00 EDT START DATE/TIME: 10/16/2022 12:00 EDT FREE TEXT SOURCE: Ham BRIDGES, Damion Cheek PA-C, Damion Ellis FINAL REPORTS Final Report [] Verified Date/Time: 10/18/2022 09:05 EDT >100,000 cfu/ml Escherichia coli SUSCEPTIBILITY RESULTS __ LEGEND: S=Susceptible, N/R=Not Reported, Blank=Data not available, or drug not advisable or tested, I=Intermediate, ESBL=Extended spectrum beta-lactamase, R=Resistant, TFG=Thymidine-dependent strain, WEST=Beta-lactamase positive, KATHIE=mcg/m;(mg/L), S*=Predicted susceptible interp, R*=Predicted resistant interp EC Antibiotic KATHIE Dilutn KATHIE Interp Amikacin <=16 S Ampicillin <=8 S Ampicillin/ <=8/4 S Sulbactam Aztreonam <=4 S Cefazolin <=2 S Cefepime <=2 S Cefoxitin <=8 S Ceftazidime <=1 S Ceftazidime/ <=8 S Avibactam Ceftriaxone <=1 S Ciprofloxacin <=1 S Ertapenem <=0.5 S Gentamicin <=4 S Levofloxacin <=2 S Meropenem <=1 S Nitrofurantoin <=32 S Piperacillin/ <=16 S Tazobactam Tetracycline <=4 S Tigecycline <=2 S Tobramycin <=4 S Trimethoprim/ <=2/38 S Sulfa Performing Locations R1: This test was performed at: [facility], [address] [place] [address], [id number]- , , Normal [facility] Comment on above: Performed By: #### [id number] ####[facility] [id number] [place] [address] Family Medicine Office/Clini c Noteon 10-15-2022 Family Medicine Office/Clinic Note Chief Complaint EST uti HPI Staff Deysi, 62 yo female here today with UTI symptoms Onset- 2 days ago Frequency- yes Urgency- yes Small volume void- no Dysuria- no Pressure- yes Back pain- slight Nocturia- no Fever/chills- no Nausea/vomiting- no UTI or other reason for antbx's last 30 days- no Pt has Chronic kidney disease stage 3 Pt states the stream starts out slow then gets a gush History of Present Illness I have reviewed and verified the staff HPI to be accurate for this encounter. Portions of this record have been created with voice recognition software. Occasional wrong-word or ?[id number]? substitutions may have occurred due to the inherent limitations of voice recognition software. 62-year-old female with history of stage III chronic kidney disease, hyperlipidemia, hypertension, current smoker presents today to convenient care with chief complaint of possible urinary tract infection. She does note that she has been seen urology in the past in regards to stress incontinence. She also notes that she sees nephrology out of [facility]. Patient states she sees them every 6 months for history of her chronic kidney disease in which she states that her right kidney does a lot of work in her left kidney does not function. Patient states a history of urosepsis several years ago and she does not really recall 5 of her days of hospitalization or transfer from [facility] to [facility]. Patient states that on of last week she developed some lower abdominal or suprapubic pressure. She denies any burning with urination but notes with urinary urgency and frequency. Denies known hematuria. She denies fever chills or weakness. She denies any severe abdominal pain nausea vomiting or diarrhea. Patient denies any recent urinary tract infection. No recent antibiotics. No known antibiotic allergy. Medication allergy to codeine. She has no other concerns at this time. Review of Systems PHQ Score Initial Depression Screen Score: 0 ROS negative unless otherwise stated in HPI. Physical Exam Vitals & Measurements T: 36.3 ?C(Oral) HR: 60(Peripheral) BP: 122/76 SpO2: 96% HT: 64 in HT: 163 cm WT: 72.3 kg WT: 159.06 lb BMI: 27.21 General: Well developed, well nourished, in no acute distress pleasant female Eyes: not assessed Ears: not assessed Nose: not addressed Mouth: not assessed Neck: not assessed Lungs: Lung sounds are clear bilaterally. No wheezing rhonchi or crackles on exam. Cardio: S1, S2, regular rhythm. No murmurs gallops or rubs. Abdomen: Bowel sounds are present x4 quadrants. Abdomen is soft, nontender, nondistended. No rigidity rebound or guarding on exam. Musculoskeletal: not assessed Extremity: not assessed Neurologic: not assessed Skin: No rashes, ulcerations, or suspicious lesions Mental Status: Alert and oriented x3. Normal mood and affect Assessment/Plan Urine dip notes trace blood small leukocytes and positive nitrate. I discussed with patient in regards to treatment with Keflex 3 times daily x7 days given urine dip. We will send urinalysis for culture which will come back in about 48 hours which we will contact her in regards to those results. Discussed that she would need any antibiotic change at that time we would provide that for her. Patient understands to seek emergency department evaluation notes any high spiking fever or significant weakness confusion vomiting severe abdominal pain or for any other concerns. She understands to follow closely with primary care provider and to return here for any worsening or concerning symptoms which patient agrees and understands plan of care. 1. UTI (urinary tract infection) (N39.0: Urinary tract infection, site not specified) UA with trace blood, small leukocytes, positive nitrates. Will treat with keflex tid x 7 days. Finish course of ATB. Fluids/rest. Will cx urine and notify of results in 3-5 days. Fu with PCP if not improving over next 3-4 days with ATB or worsening. Patient verbalized understanding of tx plan. Ordered: cephalexin, 500 mg = 1 cap(s), Oral, TID, X 7 day(s), # 21 cap(s), Refills(s) 0, Pharmacy: [facility]/pharmacy #[id number], 163, cm, 10/15/22 17:40:00 EDT, Height/Length Dosing, 72.3, kg, 10/15/22 17:40:00 EDT, Weight Dosing Urine Culture 2. BMI 27.0-27.9,adult (Z68.27: Body mass index [BMI] 27.0-27.9, adult) The standard range for ages 18 and older is >=18.5 and < 25 kg/m2. Your BMI today was above this range, this falls in the overweight to obese category and there are medical benefits to weight loss. We can offer counselling, referral, and/or medical support in addressing this problem. Your BMI and weight management will be followed at subsequent visits. Ordered: cephalexin, 500 mg = 1 cap(s), Oral, TID, X 7 day(s), # 21 cap(s), Refills(s) 0, Pharmacy: [facility]/pharmacy #[id number], 163, cm, 10/15/22 17:40:00 EDT, Height/Length Dosing, 72.3, kg, 10/15/22 17:40:00 EDT, Weight Dosing 3. Smoker (F17.200: Nicotine dependence, unspecified (more content not included)... Normal [facility] Comment on above: Result Comment: Elec tronically Signed By: Ham BRIDEGS, Damion Ellis\.br\Date and Time Signed: 10/15/22 18:07 EDT Patient Educationon 10-16-19 Patient Education Nutrition BMI for Adults What is BMI? Body mass index (BMI) is a number that is calculated from a person's weight and height. BMI can help estimate how much of a person's weight is composed of fat. BMI does not measure body fat directly. Rather, it is an alternative to procedures that directly measure body fat, which can be difficult and expensive. BMI can help identify people who may be at higher risk for certain medical problems. What are BMI measurements used for? BMI is used as a screening tool to identify possible weight problems. It helps determine whether a person is obese, overweight, a healthy weight, or underweight. BMI is useful for: ? Identifying a weight problem that may be related to a medical condition or may increase the risk for medical problems. ? Promoting changes, such as changes in diet and exercise, to help reach a healthy weight. BMI screening can be repeated to see if these changes are working. How is BMI calculated? BMI involves measuring your weight in relation to your height. Both height and weight are measured, and the BMI is calculated from those numbers. This can be done either in [place] or metric measurements. Note that charts and online BMI calculators are available to help you find your BMI quickly and easily without having to do these calculations yourself. To calculate your BMI in [place] measurements: 1. Measure your weight in pounds (lb). 2. Multiply the number of pounds by 703. ? For example, for a person who weighs 180 lb, multiply that number by 703, which equals 126,540. 3. Measure your height in inches. Then multiply that number by itself to get a measurement called inches squared. ? For example, for a person who is 70 inches tall, the inches squared measurement is 70 inches x 70 inches, which equals 4,900 inches squared. 4. Divide the total from step 2 (number of lb x 703) by the total from step 3 (inches squared): 126,540 ? 4,900 = 25.8. This is your BMI. To calculate your BMI in metric measurements: 1. Measure your weight in kilograms (kg). 2. Measure your height in meters (m). Then multiply that number by itself to get a measurement called meters squared. ? For example, for a person who is 1.75 m tall, the meters squared measurement is 1.75 m x 1.75 m, which is equal to 3.1 meters squared. 3. Divide the number of kilograms (your weight) by the meters squared number. In this example: 70 ? 3.1 = 22.6. This is your BMI. What do the results mean? BMI charts are used to identify whether you are underweight, normal weight, overweight, or obese. The following guidelines will be used: ? Underweight: BMI less than 18.5. ? Normal weight: BMI between 18.5 and 24.9. ? Overweight: BMI between 25 and 29.9. ? Obese: BMI of 30 or above. Keep these notes in mind: ? Weight includes both fat and muscle, so someone with a muscular build, such as an athlete, may have a BMI that is higher than 24.9. In cases like these, BMI is not an accurate measure of body fat. ? To determine if excess body fat is the cause of a BMI of 25 or higher, further assessments may need to be done by a health care provider. ? BMI is usually interpreted in the same way for men and women. Where to find more information For more information about BMI, including tools to quickly calculate your BMI, go to these websites: ? Centers for Disease Control and Prevention: www.cdc.gov ? [place] Heart Association: www.heart.org ? National Heart, Lung, and Blood [place]: www.nhlbi.nih.gov Summary ? Body mass index (BMI) is a number that is calculated from a person's weight and height. ? BMI may help estimate how much of a person's weight is composed of fat. BMI can help identify those who may be at higher risk for certain medical problems. ? BMI can be measured using [place] measurements or metric measurements. ? BMI charts are used to identify whether you are underweight, normal weight, overweight, or obese. This information is not intended to replace advice given to you by your health care provider. Make sure you discuss any questions you have with your health care provider. Document Revised: 10/28/2019 Document Reviewed: 09/04/2019 PlanStan Patient Education ? 2022 [employer] ([employer]). Obstetrics and Gynecology Urinary Tract Infection, Adult A urinary tract infection (UTI) is an infection of any part of the urinary tract. The urinary tract includes the kidneys, ureters, bladder, and urethra. These organs make, store, and get rid of urine in the body. An upper UTI affects the ureters and kidneys. A lower UTI affects the bladder and urethra. What are the causes? Most urinary tract infections are caused by bacteria in your genital area around your urethra, where urine leaves your body. These bacteria grow and cause inflammation of your urinary tract. What increases the risk? You are more likely to develop this condition if: (more content not included)... Normal [facility] CNPNon 10-11-2022 CNPN Telephone (WIQ) ----- DEYSI HERNANDEZ ([id number]) 1960 F Date Time Provider Department 10/11/22 CATHIE MOORE WIQ During your visit today, we recorded the following information about you: Cathie MooreFormerly [facility] 10/11/2022 12:57 PM Signed Smoking Cessation Navigation Outcome of contact: Left Message Comments: A voicemail has been left for this patient regarding Tobacco Cessation support options. If this patient has any further questions they can email us at [email or web address] or call us at [phone]. [employer]oke[employer] Lead Burner/Smoking Cessation Navigator: Cathie RichFormerly [facility] Allergies As of Date: 10/11/2022 Noted Allergy Reaction CODEINE 09/07/2014 7 - Swelling Date Reviewed: 10/09/2022 Reviewed by: Rosie Harris DO - Fully Assessed Reason for Visit: Smoking Cessation [1387] Prescriptions as of 10/11/2022 - lisinopril (ZESTRIL) 5 mg tablet Take 1 tablet by mouth once daily. - aspirin, enteric coated (ASPIRIN, ENTERIC COATED) 81 mg EC tablet 81 mg. - metoprolol succinate ER (TOPROL XL) 100 mg Take 100 mg by mouth. - atorvastatin (LIPITOR) 40 mg tablet - VENTOLIN HFA 90 mcg/actuation inhaler Problem List As Of Date 10/11/2022 Noted Resolved Hypercholesteremia [E78.00] 09/07/2014 Tobacco abuse [Z72.0] 09/07/2014 History of endometrial ablation [Z98.890] 02/08/2016 Erythrocytosis [D75.1] 03/14/2016 Encounter for screening for malignant neoplasm *03/27/2016 10/09/2022 Stage 3 chronic kidney disease (HCC) [N18.30] 10/09/2022 Hypertension, renal disease [I12.9] 10/09/2022 Mixed hyperlipidemia [E78.2] 10/09/2022 Encounter Status:Closed by CATHIE MOORE on 10/11/22 Normal [facility] CNOVon 10-09-2022 CNOV Office Visit (CALIMMN ) ----- DEYSI HERNANDEZ ([id number]) 1960 F Date Time Provider Department 10/09/22 2:00 PM GURMEET OJEDA During your visit today, we recorded the following information about you: Temperature Pulse Blood pressure Weight 97.5 degrees 60/minute 91/60 71.3 kg Height 1.575 m Rosie Harris DO 10/09/2022 5:08 PM Signed [facility] NEPHROLOGY AND HYPERTENSION [facility] SERVICE DATE: 10/09/2022 SERVICE TIME: 3:34 PM CHIEF COMPLAINT: Follow up for CKD HPI: Ms. Hernandez is a 62 year old female who presents for follow up of CKD. She has a PMHx of CKD stage 3b, CAD, HTN, tobacco use. Prior hospitalization July 2021 for urosepsis/pyelonephritis. At that time, she was found to have a Scr of 1.9. This gradually improved during her hospitalization went down to 1.1 prior to discharge. Follow up lab work in Mar 2022 showed Scr of 1.3 and later on in May 2022 up to 1.58 (eGFR 40). There was concern for CKD by PCP so sent for initial evaluation in July 2022. UPCR during hospitalization 1.3 g/g, more recently 0.12g/g in May. No personal hx of diabetes. HTN and CAD that is currently being managed by her PCP. Was on lisinopril-HCTZ 12.5/10, metoprolol 100 mg BID. BP readings at home generally 110-130 systolic, later found to be lower in office visit in July to 90-100 without signs of othostasis despite vitals. Lisinopril decreased to 10 mg once daily. No family hx of CKD, ESRD, hearing loss. 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 No prior imaging of her kidneys. PAST MEDICAL HISTORY: ACTIVE PROBLEM LIST Hypercholesteremia Tobacco Abuse History of Endometrial Ablation Erythrocytosis Stage 3 Chronic Kidney Disease (Hcc) Hypertension, Renal Disease Mixed Hyperlipidemia MEDICATIONS: aspirin, enteric coated (ASPIRIN, ENTERIC COATED) 81 mg EC tablet 81 mg. metoprolol succinate ER (TOPROL XL) 100 mg Take 100 mg by mouth. atorvastatin (LIPITOR) 40 mg tablet VENTOLIN HFA 90 mcg/actuation inhaler lisinopril (ZESTRIL) 5 mg tablet Take 1 tablet by mouth once daily. ALLERGIES: ALLERGIES Allergen Reactions Codeine Swelling REVIEW OF SYSTEMS: Constitutional: No complaints Cardiovascular: No complaints Genitourinary: No complaints PHYSICAL EXAM: BP 91/60 (BP Site: Left Arm, BP Position: Sitting, BP Cuff Size: Regular Adult) Pulse 60 Temp 36.4 ?C (97.5 ?F) (Oral) Ht 157.5 cm (5' 2 ) Wt 71.3 kg (157 lb 1.6 oz) BMI 28.73 kg/m? BP - standardized method Pulse 1 BP #1: 90/61 Pulse #1: 59 beats/min 2 BP #2 : 90/59 Pulse #2 : 62 beats/min 3 BP #3 : 95/61 Pulse #3 : 61 beats/min Average Average BP: 91/60 Average Pulse: 60 beats/min Orthostatic vitals Supine Sitting Standing Standing BP : 100/67 Standing pulse : 65 BP cuff location BP cuff location: Left upper arm BP cuff size BP cuff size: regular adult Comments for BP values First BP (right) First BP (left) Constitutional:No acute distress, Responsive, Normal habitus, and Well-nourished Neck:Trachea midline No jugular venous distension Cardiovascular:No peripheral edema Regular rate and ryhthm, normal S1 and S2, no murmurs, rubs, or gallops Respiratory:Normal respiratory effort. Lungs clear bilaterally. Abdomen: non-distended Psychiatric: Alert and oriented x self, place, time, and setting Normal mood/affect DATA: Diagnostic tests reviewed for today's visit: Recent Labs 08/09/22 1445 COLOR Light Yellow CLARITY Clear UGLUC Negative UBILI Negative UKET Negative SPGR 1.009 UHB Negative UPH 6.0 UPROT Negative NITRITES Negative LEUKEST 75 Bonnie/uL* ASSESSMENT: 62 year old female who presents for follow up of CKD CKD Stage: 3b - Baseline Scr: 1.3-1.5 - Etiology: Possibly underlying vascular disease with a component of ZEB - SPEP without M protein - KUS: Left atrophic kidney, right kidney pelviectasis, normal PVR - TTE from July 2021 without major RV/LV dysfunction, stress test in January 2022 also unremarkable - Family Hx: None #Volume status/BP management: - Appears euvolemic on exam although vitals suggestive of orthostasis - Currently on lisinopril 10 mg OD #Electrolytes: No major issues #Acid/Base balance: No major issues # Hypertension from renal disease: See below # Smoking abuse: See below - No anemia, Hb actually increased likely iso smoking/COPD - No Vit D, calcium issues, borderline low Phos, will repeat Hyperlipidemia: CV risk factors: Atorvastatin 40 mg OD PLAN: Stressed importance of addressing risk factors for vascular disease including smoking cessation, taking atorvastatin Continue with sodium restriction of < 2.3g/day Cutting back on lisinopril to 5 mg once daily Agree Will discuss with PCP regarding cutting back on metoprol (more content not included)... Normal [facility] URINALYSIS, REFLEX MICROSCOP ICon 10-09-2022 Bacteria LM.HPF (Urine sed) [#/Area] Few Abnormal None Seen [facility] Comment on above: Order Comment: Speci men Type: URINE SPECIMEN Ordering Facility: [facility] Address: [address] [place], [place] [id number] Performed By: #### L [id number] #### [facility] CLIA [id number] [address] [facility] [place] [address] [place] Bilirubin Ql (U) Negative Normal [facility] Comment on above: Order Comment: Speci men Type: URINE SPECIMEN Ordering Facility: [facility] Address: [address] [place], [place] [id number] Performed By: #### L [id number] #### [facility] CLIA [id number] [address] [place] [address] [place] Clarity (Unsp spec) Cloudy Abnormal Clear [facility] Comment on above: Order Comment: Speci men Type: URINE SPECIMEN Ordering Facility: [facility] Address: [address] [place] [address] Performed By: #### L [id number] #### [facility] CLIA [id number] [address] [place] [address] [place] Color (U) Light Yellow Normal Yellow [facility] Comment on above: Order Comment: Speci men Type: URINE SPECIMEN Ordering Facility: [facility] Address: [address] [place], [place] [id number] Performed By: #### L [id number] #### [facility] CLIA [id number] [address] [place] [address] [place] Epithelial cells LM.HPF (Urine sed) [#/Area] Few Normal [facility] Comment on above: Order Comment: Speci men Type: URINE SPECIMEN Ordering Facility: [facility] Address: [address] [place] [address] Performed By: #### L [id number] #### [facility] CLIA [id number] [address] [place] [address] [place] Glucose Test strip (U) [Mass/Vol] Negative Normal Trace, Negative [facility] Comment on above: Order Comment: Speci men Type: URINE SPECIMEN Ordering Facility: [facility] Address: [address] [place] [address] Performed By: #### L [id number] #### [facility] CLIA [id number] [address] [place] [address] [place] Hemoglobin Ql (U) Trace Normal Negative, Trace [facility] Comment on above: Order Comment: Speci men Type: URINE SPECIMEN Ordering Facility: [facility] Address: [address] [place], [place] [address] Performed By: #### L [id number] #### [facility] CLIA [id number] [address] [place] [address] [place] Ketones Ql (U) Negative Normal Negative, Trace [facility] Comment on above: Order Comment: Speci men Type: URINE SPECIMEN Ordering Facility: [facility] Address: [address] [place], [place] [address] Performed By: #### L [id number] #### [facility] CLIA [id number] [address] [place] [address] [place] Leukocyte esterase Test strip Ql (U) 250 Bonnie/uL Abnormal Negative, 25 Bonnie/uL [facility] Comment on above: Order Comment: Speci men Type: URINE SPECIMEN Ordering Facility: [facility] Address: [address] [place], [place] [address] Performed By: #### L [id number] #### [facility] CLIA [id number] [address] [place] [address] [place] Nitrite Ql (U) 2+ Abnormal Negative [facility] Comment on above: Order Comment: Speci men Type: URINE SPECIMEN Ordering Facility: [facility] Address: [address] [place], [place] [address] Performed By: #### L [id number] #### [facility] CLIA [id number] [address] [place] [address] [place] pH (U) 5.5 [pH] Normal 5.0-8.0 [facility] Comment on above: Order Comment: Speci men Type: URINE SPECIMEN Ordering Facility: [facility] Address: [address] [place], [place] [address] Performed By: #### L [id number] #### [facility] CLIA [id number] [address] [place] [address] [place] Protein (U) [Mass/Vol] Negative Normal Trace , Negative [facility] Comment on above: Order Comment: Speci men Type: URINE SPECIMEN Ordering Facility: [facility] Address: [address] [place], [place] [address] Performed By: #### L [id number] #### [facility] CLIA [id number] [facility] [place] [address] [place] RBC LM.HPF (Urine sed) [#/Area] 0-3 /HPF Normal 0-3 /HPF [facility] Comment on above: Order Comment: Speci men Type: URINE SPECIMEN Ordering Facility: [facility] Address: [address] [place], [place] [address] Performed By: #### L [id number] #### [facility] CLIA [id number] [address] [place] [address] OF [facility] Specific gravity (U) [Rel density] 1.015 Normal 1.005-1.03 0 [facility] Comment on above: Order Comment: Speci men Type: URINE SPECIMEN Ordering Facility: [facility] Address: [address] [place], [place] [address] Performed By: #### L [id number] #### [facility] CLIA [id number] [address] [place] [address] [place] Urobilinogen Ql (U) Negative Normal Negative [facility] Comment on above: Order Comment: Speci men Type: URINE SPECIMEN Ordering Facility: [facility] Address: [address] [place], [place] [address] Performed By: #### L [id number] #### [facility] CLIA [id number] [address] [place] [address] [place] WBC LM.HPF (Urine sed) [#/Area] /[HPF] Abnormal 0-5 /HPF [facility] Comment on above: Order Comment: Speci men Type: URINE SPECIMEN Ordering Facility: [facility] Address: [address] [place], [place] [address] Performed By: #### L [id number] #### [facility] CLIA [id number] [address] [place] Bacteria LM.HPF (Urine sed) [#/Area] Few Abnormal None Seen /HPF [facility] Bilirubin Ql (U) Negative Negative [facility] Clarity (Unsp spec) Cloudy Abnormal Clear [facility] Color (U) Light Yellow Yellow [facility] Epithelial cells LM.HPF (Urine sed) [#/Area] Few [facility] Glucose Test strip (U) [Mass/Vol] Negative Trace, Negative [facility] Hemoglobin Ql (U) Trace Negative, Trace [facility] Ketones Ql (U) Negative Negative, Trace [facility] Leukocyte esterase Test strip Ql (U) 250 Bonnie/uL Abnormal Negative, 25 Bonnie/uL [facility] Nitrite Ql (U) 2+ Abnormal Negative [facility] pH (U) 5.5 [pH] 5.0 - 8.0 [facility] Protein (U) [Mass/Vol] Negative Trace , Negative [facility] RBC LM.HPF (Urine sed) [#/Area] 0-3 /HPF 0-3 /HPF [facility] Specific gravity (U) [Rel density] 1.015 1.005 - 1.030 [facility] Urobilinogen Ql (U) Negative Negative [facility] WBC LM.HPF (Urine sed) [#/Area] /[HPF] Abnormal 0-5 /HPF [facility] Consenton 09-03-2022 Consent [id number]#[id number]:1 27 Normal [facility] Registrationon 09-03-2022 Registration [id number]#[id number]:1 27 Normal [facility] 25(OH)D3 [facility] 2022 25-hydroxyvitamin D3 [Mass/Vol] 34.5 ng/mL Normal 31.0-80.0 [facility] Comment on above: Order Comment: Speci men Type: BLOOD SPECIMEN Ordering Facility: [facility] Address: [address] [place] [address] Result Comment: Clas sification of 25 [place] Vitamin D status: Deficiency/Insufficiency: < or = 30 ng/ml. Sufficiency/Optimal Levels: 31-80 ng/mL Toxicity: > 100 ng/mL. Test performed by chemiluminescent immunoassay. Performed By: #### 1 989-3 #### [facility] CLIA [id number] [facility] [address] IMMUNOFIXATION SCREEN, SERUM on 08-23-2022 MPA RESULT No M protein is identified. Normal No M protein is identified . [facility] Comment on above: Order Comment: Speci men Type: BLOOD SPECIMEN Ordering Facility: [facility] Address: [address] [place], [place] [address] Performed By: #### I FESC #### [facility] CLIA [id number] [address] [place] [address] OF [facility] STAFF REVIEW ([facility]) Reviewed by Cortes Alfredo MD, Ph.D ([id number]) Normal [facility] Comment on above: Order Comment: Speci men Type: BLOOD SPECIMEN Ordering Facility: [facility] Address: [address] [place] [address] Performed By: #### I FES #### [facility] CLIA [id number] [address] [place] [address] [place] IMMUNOGLOBULINS GAMon 2022 IgA [Mass/Vol] 218 mg/dL Normal 70-400 [facility] Comment on above: Order Comment: Speci men Type: BLOOD SPECIMEN Ordering Facility: [facility] Address: [address] Performed By: #### S ERIMM #### [facility] CLIA [id number] [address] [place] [address] STATES [facility] IgG [Mass/Vol] 775 mg/dL Normal 700-1600 [facility] Comment on above: Order Comment: Speci men Type: BLOOD SPECIMEN Ordering Facility: [facility] Address: [address] [place], [place] [address] Performed By: #### S ERIMM #### [facility] CLIA [id number] [address] [place] [address] [place] IgM [Mass/Vol] 129 mg/dL Normal 40-230 [facility] Comment on above: Order Comment: Speci [facility] Type: BLOOD SPECIMEN Ordering Facility: [facility] Address: [address] [place] [address] Performed By: #### S ERIMM #### [facility] CLIA [id number] [address] [place] [address] [place] KAPPA/THAO,FREE,SERon 2022 Immunoglobulin light chains.kappa.free (S) [Mass/Vol] 26.1 mg/L High 3.3-19.4 [facility] Comment on above: Order Comment: [facility]: BLOOD [facility] Ordering Facility: [facility] Address: [address] [place] [address] Result Comment: Rare ly, increased serum free light chains levels may not be detected or accurately quantified due to prozone phenomenon or in high viscosity samples using this immunoturbidimetric assay. Correlation with other laboratory results and clinical findings is recommended. The [place] Free Light Chain was performed using the Binding Site Optilite immunoturbidimetric method. Result obtained with different assay methods or kits cannot be used interchangeably. Performed By: #### K LFRS #### [facility] CLIA [id number] [address] [place] [address] [place] Immunoglobulin light chains.kappa/Immunoglo bulin light chains.lambda (S) [Mass ratio] 1.01 Normal 0.26-1.65 [facility] Comment on above: Order Comment: Speci men Type: BLOOD SPECIMEN Ordering Facility: [facility] Address: [address] [place] [address] Performed By: #### K LFRS #### [facility] CLIA [id number] [address] [place] [address] [place] Immunoglobulin light chains.lambda.free [Mass/Vol] 25.9 mg/L Normal 5.7-26.3 [facility] Comment on above: Order Comment: Speci men Type: BLOOD SPECIMEN Ordering Facility: [facility] Address: [address] [address] Result Comment: Rare ly, increased serum free light chains levels may not be detected or accurately quantified due to prozone phenomenon or in high viscosity samples using this immunoturbidimetric assay. Correlation with other laboratory results and clinical findings is recommended. The Lambda Free Light Chain was performed using the Binding Site Optilite immunoturbidimetric method. Result obtained with different assay methods or kits cannot be used interchangeably. Performed By: #### K LFRS #### [facility] CLIA [id number] [address] [facility] [place] [id number] [place] Renal function 2000 panelon 08-23-2022 Albumin [Mass/Vol] 4.3 g/dL Normal 3.9-4.9 [facility] Comment on above: Order Comment: Speci men Type: BLOOD SPECIMEN Ordering Facility: [facility] Address: [address] [place] [address] Performed By: #### 2 4362-6 #### [facility] CLIA [id number] [address] [place] [address] [place] Anion gap [Moles/Vol] 9 mmol/L Normal 9-18 [facility] Comment on above: Order Comment: Speci men Type: BLOOD SPECIMEN Ordering Facility: [facility] Address: [address] Performed By: #### 2 4362-6 #### [facility] CLIA [id number] [address] [place] [address] [place] Calcium [Mass/Vol] 9.9 mg/dL Normal 8.5-10.2 [facility] Comment on above: Order Comment: Speci men Type: BLOOD SPECIMEN Ordering Facility: [facility] Address: [address] [place] [address] Performed By: #### 2 4362-6 #### [facility] CLIA [id number] [address] [place] [address] [place] Chloride [Moles/Vol] 105 mmol/L Normal 97-105 [facility] Comment on above: Order Comment: Speci men Type: BLOOD SPECIMEN Ordering Facility: [facility] Address: [address] [place] [address] Performed By: #### 2 4362-6 #### [facility] CLIA [id number] [address] [place] [address] [place] CO2 [Moles/Vol] 25 mmol/L Normal 22-30 [facility] Comment on above: Order Comment: Speci men Type: BLOOD SPECIMEN Ordering Facility: [facility] Address: [address] [place] [address] Performed By: #### 2 4362-6 #### [facility] CLIA [id number] [place] [address] [place] Creatinine [Mass/Vol] 1.42 mg/dL High 0.58-0.96 [facility] Comment on above: Order Comment: Speci men Type: BLOOD SPECIMEN Ordering Facility: [facility] Address: [address] [place] [address] Performed By: #### 2 4362-6 #### [facility] CLIA [id number] [address] [place] [id number] [facility] OF TRAV ESTIMATED GLOMERULAR FILTRATION RATE 42 mL/min/1.73m??? Low >=60 [facility] Comment on above: Order Comment: Speci men Type: BLOOD SPECIMEN Ordering Facility: [facility] Address: [address] [place] [address] Result Comment: Jody mated Glomerular Filtration Rate (eGFR) is calculated using the 2020 CKD-EPI creatinine equation. This equation utilizes serum creatinine, sex, and age as parameters. The creatinine assay has traceable calibration to isotope dilution-mass spectrometry. Refer to KDIGO guidelines for clinical interpretation. In patients with unstable renal function, e.g. those with acute kidney injury, the eGFR may not accurately reflect actual GFR. Performed By: #### 2 4362-6 #### [facility] CLIA [id number] [address] [place] [address] [place] Glucose [Mass/Vol] 70 mg/dL Low 74-99 [facility] Comment on above: Order Comment: Carmen juarez Type: BLOOD SPECIMEN Ordering Facility: [facility] Address: [address] [place] [address] Result Comment: The [place] Diabetes Association (ADA) provides guidance for cutoff values for fasting glucose and random glucose. The ADA defines fasting as no caloric intake for at least 8 hours. Fasting plasma glucose results between 100 to 125 mg/dL indicate increased risk for diabetes (prediabetes). Fasting plasma glucose results greater than or equal to 126 mg/dL meet the criteria for diagnosis of diabetes. In the absence of unequivocal hyperglycemia, results should be confirmed by repeat testing. In a patient with classic symptoms of hyperglycemia or hyperglycemic crisis, random plasma glucose results greater than or equal to 200 mg/dL meet the criteria for diagnosis of diabetes. Reference: Standards of Medical Care in Diabetes 2016, [place] Diabetes Association. Diabetes Care. 2016.39(Suppl 1). Performed By: #### 2 4362-6 #### [facility] IA [id number] [address] [place] [address] [place] Phosphate [Mass/Vol] 2.5 mg/dL Low 2.7-4.8 [facility] Comment on above: Order Comment: Carmen juarez Type: BLOOD SPECIMEN Ordering Facility: [facility] Address: [address] [place] [address] Performed By: #### 2 4362-6 #### [facility] IA [id number] [address] [place] [address] [place] Potassium [Moles/Vol] 4.8 mmol/L Normal 3.7-5.1 [facility] Comment on above: Order Comment: Carmen juarez Type: BLOOD SPECIMEN Ordering Facility: [facility] Address: [address] [place] [address] Performed By: #### 2 4362-6 #### [facility] IA [id number] [address] [place] [address] [facility] OF TRAV Sodium [Moles/Vol] 139 mmol/L Normal 136-144 [facility] Comment on above: Order Comment: Speci men Type: BLOOD SPECIMEN Ordering Facility: [facility] Address: [address] [place] [address] Performed By: #### 2 4362-6 #### [facility] CLIA [id number] [address] [place] [address] [place] Urea nitrogen [Mass/Vol] 18 mg/dL Normal 7-21 [facility] Comment on above: Order Comment: Speci men Type: BLOOD SPECIMEN Ordering Facility: [facility] Address: [address] [id number] Performed By: #### 2 4362-6 #### [facility] CLIA [id number] [address] [place] [address] [place] US KIDNEY/BLADDERon 08-24-19 US KIDNEY/BLADDER * * *Final Report* * * DATE OF EXAM: Aug 23 2022 2:15PM [place] [id number] - KIDNEY/BLADDER / PROCEDURE REASON: Stage 3b chronic kidney disease (HCC) * * * * Physician Interpretation * * * * EXAMINATION: RENAL ULTRASOUND CLINICAL HISTORY: Stage III B chronic kidney disease TECHNIQUE: Sonography of the kidneys and urinary bladder was performed. Images were obtained and stored in a permanent archive. MQ: UR_1 COMPARISON: None RESULT: Right Kidney: -Renal length: 11.2 cm -Parenchyma: Normal parenchymal echogenicity. Diffuse parenchymal thinning present. -Collecting system: Pelviectasis -Calculus: No echogenic, shadowing calculus. -Lesion: 1.1 x 1.0 x 0.9 cm cyst in the lower pole. Left Kidney: -Renal length: 8.2 cm -Parenchyma: Normal parenchymal echogenicity. Diffuse parenchymal thinning present. -Collecting system: No hydronephrosis. -Calculus: No echogenic, shadowing calculus. -Lesion: None. Bladder: Normal sonographic appearance. Prevoid volume of 182 cc. Postvoid volume of 2 cc. Bilateral ureteral jets present, right greater than left. IMPRESSION: 1. Left kidney is atrophic. 2. Right-sided pelviectasis. 3. Normal postvoid residual bladder volume 4. Right renal cyst Clean Up Helper Banquet: PSCB Transcribe Date/Time: Aug 28 2022 8:25A Dictated by : ALEAH QUINN MD This examination was interpreted and the report reviewed and electronically signed by: ALEAH QUINN MD on Aug 28 2022 8:28AM EST [id number] Normal [facility] 08-09-2022 [facility] Office Visit (CALIMMHussein ) ----- DEYSI HERNANDEZ ([id number]) 1960 F Date Time Provider Department 08/09/22 3:00 PM GURMEET OJEDA During your visit today, we recorded the following information about you: Temperature Pulse Blood pressure Weight 97.7 degrees 65/minute 98/64 72.5 kg Height 1.575 m Debra Fishman MD 08/09/2022 7:02 PM Signed [facility] NEPHROLOGY AND HYPERTENSION [facility] SERVICE DATE: 08/09/2022 SERVICE TIME: 3:35 PM REASON FOR CONSULT: I am asked to see this patient in consultation for my opinion regarding CKD. My recommendations will be communicated by way of shared medical record, fax, or mail. REQUESTING PHYSICIAN: Shaikh Thompson MD PRIMARY CARE PHYSICIAN: Shaikh Donna MD CHIEF COMPLAINT: CKD HPI: Ms. Hernandez is a 62 year old female who presents with a PMHx of CAD, HTN, tobacco use who is presenting to establish care for CKD. The patient was hospitalized [facility] July 2021 for urosepsis/pyelonephritis. At that time, she was found to have a Scr of 1.9. This gradually improved and her Scr during her hospitalization went down to 1.1 prior to discharge. Follow up lab work in Mar 2022 showed Scr of 1.3 and later on in May 2022 up to 1.58 (eGFR 40). There was concern for CKD by PCP so sent for evaluation. UPCR during hospitalization 1.3 g/g, more recently 0.12g/g in May. She was unaware of any abnormal labs prior to last July. No personal hx of diabetes. She does have HTN and CAD that is currently being managed by her PCP. On lisinopril-HCTZ 12.5/10, metoprolol 100 mg BID. BP readings at home generally 110-130 systolic. In more recent readings from this week she has had a decrease in the overall trend to 90-100. Denies signs of orthostasis during todays visit despite vital signs. No family hx of CKD, ESRD, hearing loss. She is a senior living smoker, currently 0.75 pack per day but smoked more in the past and started > 40 years ago. No prior imaging of her kidneys PAST MEDICAL HISTORY: PAST MEDICAL HISTORY Diagnosis Date Anemia, unspecified Anemia NOS Dysmenorrhea Excessive or frequent menstruation Heavy periods PAST SURGICAL HISTORY: PAST SURGICAL HISTORY Procedure Laterality Date ENDOMETRIAL ABLTJ THERMAL W/O HYSTEROSCOPIC GUID PAST SURGICAL HISTORY OF 01/2010 endometrial ablation for menorrhagia FAMILY HISTORY: FAMILY HISTORY Problem Relation Age of Onset Heart Father Thyroid Sister Hypertension Sister SOCIAL HISTORY: Social History Tobacco Use Smoking status: Former Packs/day: 1.00 Types: Cigarettes Quit date: 08/18/2017 Years since quittin.9 Smokeless tobacco: Never Substance Use Topics Alcohol use: Yes Drug use: No MEDICATIONS: aspirin, enteric coated (ASPIRIN, ENTERIC COATED) 81 mg EC tablet 81 mg. lisinopril-hydroCHLOROthi azide (ZESTORETIC) 10-12.5 mg per tablet lisinopril Refills(s) 0 Start Date: 04/11/22 Status: Ordered metoprolol succinate ER (TOPROL XL) 100 mg Take 100 mg by mouth. atorvastatin (LIPITOR) 40 mg tablet VENTOLIN HFA 90 mcg/actuation inhaler ALLERGIES: ALLERGIES Allergen Reactions Codeine Swelling REVIEW OF SYSTEMS: Constitutional: No complaints Eyes: No complaints Ear, Nose, and Throat: No complaints Cardiovascular: No complaints Respiratory: No complaints Gastrointestinal: No complaints Genitourinary: No complaints Musculoskeletal: No complaints Skin: No complaints Neurological: No complaints Hematologic/Lymph:No complaints PHYSICAL EXAM: BP 98/64 (BP Site: Left Arm, BP Position: Sitting, BP Cuff Size: Regular Adult) Pulse 65 Temp 36.5 ?C (97.7 ?F) (Oral) Ht 157.5 cm (5' 2 ) Wt 72.5 kg (159 lb 14.4 oz) BMI 29.25 kg/m? BP - standardized method Pulse 1 BP #1: 100/63 Pulse #1: 67 beats/min 2 BP #2 : 92/61 Pulse #2 : 66 beats/min 3 BP #3 : 101/66 Pulse #3 : 62 beats/min Average Average BP: 98/64 Average Pulse: 65 beats/min Orthostatic vitals Supine Sitting Standing Standing BP : 80/50 Standing pulse : 71 BP cuff location BP cuff location: Left upper arm BP cuff size BP cuff size: regular adult Comments for BP values First BP (right) First BP (Right): 92/67 First BP (left) First BP (Left): 102/67 Constitutional: No acute distress, Responsive, Normal habitus, and Well-nourished Eyes: Conjunctiva clear Ear, Nose, and Throat: Hearing normal and Lips normal Neck:Trachea midline No jugular venous distension Cardiovascular:No peripheral edema Regular rate and ryhthm, normal S1 and S2, no murmurs, rubs, or gallops Respiratory: Normal respiratory effort. Lungs clear bilaterally. Abdomen:Soft, non-tender, non-distended. Normal bowel sounds. Musculoskeletal: No clubbing or cyanosis of digits. and Normocephalic. Neurologic:Normal sensation Psychiatric: Alert and oriented x self, place, time, and setting Normal mo (more content not included)... Normal [facility] URINALYSIS, REFLEX MICROSCOP ICon 08-09-2022 Bilirubin Ql (U) Negative Normal [facility] Comment on above: Order Comment: Speci men Type: URINE SPECIMEN Ordering Facility: [facility] Address: [address] [place] [address] Performed By: #### L [id number] #### [facility] CLIA [id number] [facility] [place] [address] [place] Clarity (Unsp spec) Clear Normal Clear [facility] Comment on above: Order Comment: Speci men Type: URINE SPECIMEN Ordering Facility: [facility] Address: [address] [id number] Performed By: #### L [id number] #### [facility] CLIA [id number] [address] [place] [address] [place] Color (U) Light Yellow Normal Yellow [facility] Comment on above: Order Comment: Speci men Type: URINE SPECIMEN Ordering Facility: [facility] Address: [address] [place] [address] Performed By: #### L [id number] #### [facility] CLIA [id number] [address] [place] [address] [place] Glucose Test strip (U) [Mass/Vol] Negative Normal Trace, Negative [facility] Comment on above: Order Comment: Speci men Type: URINE SPECIMEN Ordering Facility: [facility] Address: [address] Performed By: #### L [id number] #### [facility] CLIA [id number] [address] [place] [address] [place] Hemoglobin Ql (U) Negative Normal Negative, Trace [facility] Comment on above: Order Comment: Speci men Type: URINE SPECIMEN Ordering Facility: [facility] Address: [address] [place] [address] Performed By: #### L [id number] #### [facility] CLIA [id number] [address] [place] [address] [place] Ketones Ql (U) Negative Normal Negative, Trace [facility] Comment on above: Order Comment: Speci men Type: URINE SPECIMEN Ordering Facility: [facility] Address: [address] [place] [address] Performed By: #### L [id number] #### [facility] CLIA [id number] [address] [place] [address] [place] Leukocyte esterase Test strip Ql (U) 75 Bonnie/uL Abnormal Negative, 25 Bonnie/uL [facility] Comment on above: Order Comment: Speci men Type: URINE SPECIMEN Ordering Facility: [facility] Address: [address] Performed By: #### L [id number] #### [facility] CLIA [id number] [address] [place] [address] [place] Nitrite Ql (U) Negative Normal Negative [facility] Comment on above: Order Comment: Speci men Type: URINE SPECIMEN Ordering Facility: [facility] Address: [address] Performed By: #### L [id number] #### [facility] CLIA [id number] [address] [place] [address] [place] pH (U) 6.0 [pH] Normal 5.0-8.0 [facility] Comment on above: Order Comment: Speci men Type: URINE SPECIMEN Ordering Facility: [facility] Address: [address] [place], [place] [id number] Performed By: #### L [id number] #### [facility] CLIA [id number] [address] [place] [address] [place] Protein (U) [Mass/Vol] Negative Normal Trace , Negative [facility] Comment on above: Order Comment: Speci men Type: URINE SPECIMEN Ordering Facility: [facility] Address: [address] [place], [place] [id number] Performed By: #### L [id number] #### [facility] CLIA [id number] [address] [place] [address] [place] Specific gravity (U) [Rel density] 1.009 Normal 1.005-1.03 0 [facility] Comment on above: Order Comment: Speci men Type: URINE SPECIMEN Ordering Facility: [facility] Address: [address] [place], [place] [id number] Performed By: #### L [id number] #### [facility] CLIA [id number] [address] [place] [address] Urobilinogen Ql (U) Negative Normal Negative [facility] Comment on above: Order Comment: Speci men Type: URINE SPECIMEN Ordering Facility: [facility] Address: [address] [place] [id number] Performed By: #### L [id number] #### [facility] CLIA [id number] [address] [place] [address] [place] Bilirubin Ql (U) Negative Negative [facility] Clarity (Unsp spec) Clear Clear [facility] Color (U) Light Yellow Yellow [facility] Glucose Test strip (U) [Mass/Vol] Negative Trace, Negative [facility] Hemoglobin Ql (U) Negative Negative, Trace [facility] Ketones Ql (U) Negative Negative, Trace [facility] Leukocyte esterase Test strip Ql (U) 75 Bonnie/uL Abnormal Negative, 25 Bonnie/uL [facility] Nitrite Ql (U) Negative Negative [facility] pH (U) 6.0 [pH] 5.0 - 8.0 [facility] Protein (U) [Mass/Vol] Negative Trace , Negative [facility] Specific gravity (U) [Rel density] 1.009 1.005 - 1.030 [facility] Urobilinogen Ql (U) Negative Negative [facility] Consent for Procedure/Surger yon 06-19-2022 Consent for Procedure/Surgery [id number]#[id number]:12 7 Normal [facility] Gastroenterology Office/Clin ic Noteon 06-16-2022 Gastroenterology Office/Clinic Note Chief Complaint GERD HPI Staff This is a 62 year old female who presents today for a referral by Donna for complaints of GERD. History of Present Illness Deysi Hernandez is a 62-year-old white female who was referred to me for gastric esophageal reflux disease. Deysi endorses that she initially thought her symptoms were due to taking a lot of medications. She was hospitalized in 07/2021 and was placed on metoprolol. The patient reports that when she eats mashed potatoes, she feels like a big ball gets stuck in the retrosternal area. She states that when she swallows, the food does not go down as easily as it does. The patient reports that she has extreme pain, where it can make her double over because it hurts so bad. Deysi notes that it happens mostly with solids. The patient reports that she has acid reflux and heartburn. She denies taking antacid medication. Deysi reports that she limits her soda intake to 1 soda a week. She denies any hematochezia, melena, nausea, or vomiting. The patient reports that she had a colonoscopy at the beginning of 02/2022 in [facility]. She states that they did remove a couple of polyps. The patient reports that she was told to repeat it in 5 years. Review of Systems PHQ Score Initial Depression Screen Score: 0 Constitutional: No fever, no chills, no sweats, no weakness Skin: no Jaundice, no rash, no lesions, no petechiae ENMT: no ear pain, no sore throat, no congestion, no hoarseness Respiratory: no shortness of breath, no cough, no orthopnea, no wheezing Cardiovascular: no chest pain, no palpitations, no edema Gastrointestinal: no nausea, no vomiting, no diarrhea, no constipation, no GI bleeding, no abdominal pain, no bloating, no heartburn. Positive for dysphagia and GERD. Genitourinary: No dysuria, no hematuria, no discharge, no pain Musculoskeletal: no back pain, no trauma Neurologic: no numbness, no sleeping problems Additional ROS info: Except as noted in the above Review of Systems and in the History of Present Illness all other systems have been reviewed and are negative or noncontributory. Physical Exam Vitals & Measurements HR: 80(Peripheral) RR: 16 BP: 118/74 HT: 64 in HT: 163 cm WT: 74.3 kg WT: 163.46 lb BMI: 27.96 Constitutional: Appearance: well developed Skin: Inspection: no rashes, ulcers, icterus, or telangiectasias. Eyes: Conjunctivae/lids: normal conjunctivae and lids. ENMT: Hearing: within normal limits. Lips/Teeth/Gums: normal oral mucosa Neck: Neck: normal motion, central trachea Respiratory: Percussion: thorax normoresonant. Auscultation: normal breath sounds; no rubs, wheezes, rale or rhonchi. Cardiovascular: Auscultation: normal rhythm, S1 and S2; no rubs, murmurs or gallop. Peripheral: no edema Gastrointestinal/Abdomen: Abdomen: normal consistency and bowel sounds; no tenderness or masses. Liver/Spleen: normal size and consistency, not palpable. Rectal: deferred Musculoskeletal: Gait/station: normal gait Assessment/Plan 1. Dysphagia (R13.10: Dysphagia, unspecified) The patient reports episodes of dysphagia, mainly to solid, associated with acid reflux and heartburn. She is not on any antacid. We will start her on omeprazole 40 mg by mouth daily to be taken 30 minutes before breakfast on an empty stomach. We will proceed with an EGD with possible dilation to the esophagus. 2. GERD (gastroesophageal reflux disease) (K21.9: Gastro-esophageal reflux disease without esophagitis) We will start omeprazole and proceed with an EGD. 3. Screen for colon cancer (Z12.11: Encounter for screening for malignant neoplasm of colon) The patient had a recent colonoscopy a few months ago at an outside facility/[facility]. She was found to have a few polyps. She was advised to repeat her colonoscopy in 2027. ATTESTATION: Documentation services were performed after patient or guardian consented to allow Chandan Obregon to record this visit. MIKALA business process specialist and provider reviewed before signing. MIKALA: Berenice Joyner. Follow-up No qualifying data available Problem List/Past Medical History Ongoing Dysphagia Hyperlipidemia Hypertension Screen for colon cancer Smoker Smoker Stress incontinence, female Historical Embolic stroke Essential hypertension None Procedure/Surgical History None. Medications atorvastatin, Oral, Daily [facility] ASPIRIN EC 81 MG TABLET, 0 lisinopril metoprolol 100 mg ER Tab, 100 mg= 1 tab(s), Oral, Daily omeprazole 40 mg Cap-DR, 40 mg= 1 cap(s), Oral, Daily, 2 refills Pro-Air HFA CFC free 90 mcg/inh MDI Allergies No Known Allergies Social History Alcohol - Low Risk, 06/16/2017 Current, Wine, 1-2 times per year, Alcohol use interferes with work or home: No. Drinks more than intended: No. Others hurt by drinking: No. Ready to change: No. Household alcohol concerns: No., 10/17/2018 Tobacco - High Risk, 06/16/2017 10 or more cigarettes (1/2 pack or more)/day in last 30 days Tobacco Use:. Never (more content not included)... Normal [facility] Comment on above: Result Comment: Elec tronically Signed By: Berenice Joyner\.br\Date and Time Signed: 06/14/22 14:24 EDT\.br\Electronically Co-Signed By: Jamie BILLS MD\.br\Date and Time Co-Signed: 06/16/22 14:25 EDT Lab Reportson 06-13-2022 Lab Reports [id number]:12 7 Normal [facility] LIPID PROFILEon 06-12-2022 CHOL-HDL RATIO NORM SEE BELOW Normal [facility] Comment on above: Result Comment: 3.3 - 4.4 LOW RISK 4.4 - 7.1 AVERAGE RISK 7.1 - 11.0 MODERATE RISK >11.0 HIGH RISK Performed By: #### L IPID, BMP #### [facility] [address] [place] [address] Dr. Moreno Amato Cholesterol [Mass/Vol] 178 mg/dL Normal <=[address] [facility] Comment on above: Performed By: #### L IPID, BMP #### [facility] [address] [place] [address] [address] Moreno Amato Cholesterol in HDL [Mass/Vol] 39 mg/dL Critically low 40-60 [facility] Comment on above: Performed By: #### L IPID, BMP #### [facility] [address] [place] [place] [address] [address] Moreno Amato Cholesterol in LDL [Mass/Vol] 92.0 mg/dL Normal [facility] Comment on above: Performed By: #### L IPID, BMP #### [facility] [address] [place] [address] [address] Moreno Amato Cholesterol.total/Chol esterol in HDL [Mass ratio] 4.6 {ratio} Normal [facility] Comment on above: Performed By: #### L IPID, BMP #### [facility] [address] [place] [place] [address] [address] Moreno Amato HDL NORMAL > or = 60 mg/dl - LO W CARDIOVASCULAR RISK <40 mg/dl - HIGH CARDIOVASCULAR RISK Normal [facility] Comment on above: Performed By: #### L IPID, BMP #### [facility] [address] [place] [address] [address] Moreno Amato LDL CALC NORMAL SEE BELOW Normal [facility] Comment on above: Result Comment: <100 mg/dl OPTIMAL 100 - 129 mg/dl NEAR OR ABOVE OPTIMAL 130 - 159 mg/dl BORDERLINE HIGH 160 - 189 mg/dl HIGH >190 mg/dl VERY HIGH Performed By: #### L IPID, BMP #### [facility] [address] [place] [address] [address] Moreno Amato Triglyceride [Mass/Vol] 235 mg/dL Critically high <=150 [facility] Comment on above: Performed By: #### L IPID, BMP #### [facility] [address] [place] [address] [address] Moreno Amato VLDL CALC 47.0 mg/dL Normal [facility] Comment on above: Performed By: #### L IPID, BMP #### [facility] [address] [place] [address] [address] Moreno Amato PROF CHEM 8 (BAS METB)on Anion gap [Moles/Vol] 10.7 mmol/L Normal [facility] Comment on above: Performed By: #### L IPID, BMP #### [facility] [address] [place] [address] [address] Moreno Amato Calcium [Mass/Vol] 9.6 mg/dL Normal 8.5-10.1 [facility] Comment on above: Performed By: #### L IPID, BMP #### [facility] [address] [place] [address] [address] Moreno Amato Chloride [Moles/Vol] 104 mmol/L Normal 98-107 [facility] Comment on above: Performed By: #### L IPID, BMP #### [facility] [address] [place] [address] [address] Moreno Amato CO2 [Moles/Vol] 31.6 mmol/L Normal 21.0-32.0 [facility] Comment on above: Performed By: #### L IPID, BMP #### [facility] [address] [place] [address] [address] Moreno Amato Creatinine [Mass/Vol] 1.58 mg/dL Critically high 0.55-1.02 [facility] Comment on above: Performed By: #### L IPID, BMP #### [facility] [address] [place] [address] Dr. Moreno Amato EGFR-AF [place]IZ[place] 40 mL/min/1.73m2 Critically low >=60 [facility] Comment on above: Performed By: #### L IPID, BMP #### [facility] [address] [place] [address] Dr. Moreno Amato EGFR-NON AF CITIZEN [place] 33 mL/min/1.73m2 Critically low >=60 [facility] Comment on above: Performed By: #### L IPID, BMP #### [facility] [address] [place] [address] Dr. Moreno Amato Glucose [Mass/Vol] 79 mg/dL Normal 74-106 [facility] Comment on above: Performed By: #### L IPID, BMP #### [facility] [address] [place] [address] Dr. Moreno Amato Potassium [Moles/Vol] 4.3 mmol/L Normal 3.5-5.1 [facility] Comment on above: Performed By: #### L IPID, BMP #### [facility] [address] [place] [address] Dr. Moreno Amato Sodium [Moles/Vol] 142 mmol/L Normal 136-145 [facility] Comment on above: Performed By: #### L IPID, BMP #### [facility] [address] [place] [address] Dr. Moreno Amato Urea nitrogen [Mass/Vol] 21.0 mg/dL Critically high 7.0-18.0 [facility] Comment on above: Performed By: #### L IPID, BMP #### [facility] [address] [place] [address] Dr. Moreno Amato Urea nitrogen/Creatinine [Mass ratio] 13.3 mg/mg Normal [facility] Comment on above: Performed By: #### L IPID, BMP #### [facility] [address] [place] [address] [address] Moreno Amato URINE T PROTEIN CREAT RATIOo n 06-12-2022 Protein (U) [Mass/Vol] 8.8 mg/dL Normal <=12.[address] [facility] Comment on above: Performed By: #### A MY, CMP, LIPA #### [facility] [address] [place] [address] [address] Moreno Amato UR PROT CREAT RAT 0.12 Normal [facility] Comment on above: Performed By: #### A MY CMP, LIPA #### [facility] [address] [place] [address] [address] Moreno Amato URINE CREAT 70.82 mg/dL Normal 20.00-300. 00 [facility] Comment on above: Performed By: #### A TOMMY, CMP, LIPA #### [facility] [address] [place] [address] [address] Moreno Amato Patient Educationon 06-07-19 Patient Education Obstetrics and Gynec ology Overactive Bladder, Adult Overactive bladder is a condition in which a person has a sudden and frequent need to urinate. A person might also leak urine if he or she cannot get to the bathroom fast enough (urinary incontinence). Sometimes, symptoms can interfere with work or social activities. What are the causes? Overactive bladder is associated with poor nerve signals between your bladder and your brain. Your bladder may get the signal to empty before it is full. You may also have very sensitive muscles that make your bladder squeeze too soon. This condition may also be caused by other factors, such as: ? Medical conditions: ? Urinary tract infection. ? Infection of nearby tissues. ? Prostate enlargement. ? Bladder stones, inflammation, or tumors. ? Diabetes. ? Muscle or nerve weakness, especially from these conditions: ? A spinal cord injury. ? Stroke. ? Multiple sclerosis. ? Parkinson's disease. ? Other causes: ? Surgery on the uterus or urethra. ? Drinking too much caffeine or alcohol. ? Certain medicines, especially those that eliminate extra fluid in the body (diuretics). ? Constipation. What increases the risk? You may be at greater risk for overactive bladder if you: ? Are an older adult. ? Smoke. ? Are going through menopause. ? Have prostate problems. ? Have a neurological disease, such as stroke, dementia, Parkinson's disease, or multiple sclerosis (MS). ? Eat or drink alcohol, spicy food, caffeine, and other things that irritate the bladder. ? Are overweight or obese. What are the signs or symptoms? Symptoms of this condition include a sudden, strong urge to urinate. Other symptoms include: ? Leaking urine. ? Urinating 8 or more times a day. ? Waking up to urinate 2 or more times overnight. How is this diagnosed? This condition may be diagnosed based on: ? Your symptoms and medical history. ? A physical exam. ? Blood or urine tests to check for possible causes, such as infection. You may also need to see a health care provider who specializes in urinary tract problems. This is called a urologist. How is this treated? Treatment for overactive bladder depends on the cause of your condition and whether it is mild or severe. Treatment may include: ? Bladder training, such as: ? Learning to control the urge to urinate by following a schedule to urinate at regular intervals. ? Doing Kegel exercises to strengthen the pelvic floor muscles that support your bladder. ? Special devices, such as: ? Biofeedback. This uses sensors to help you become aware of your body's signals. ? Electrical stimulation. This uses electrodes placed inside the body (implanted) or outside the body. These electrodes send gentle pulses of electricity to strengthen the nerves or muscles that control the bladder. ? Women may use a plastic device, called a pessary, that fits into the vagina and supports the bladder. ? Medicines, such as: ? Antibiotics to treat bladder infection. ? Antispasmodics to stop the bladder from releasing urine at the wrong time. ? Tricyclic antidepressants to relax bladder muscles. ? Injections of botulinum toxin type A directly into the bladder tissue to relax bladder muscles. ? Surgery, such as: ? A device may be implanted to help manage the nerve signals that control urination. ? An electrode may be implanted to stimulate electrical signals in the bladder. ? A procedure may be done to change the shape of the bladder. This is done only in very severe cases. Follow these instructions at home: Eating and drinking ? Make diet or lifestyle changes recommended by your health care provider. These may include: ? Drinking fluids throughout the day and not only with meals. ? Cutting down on caffeine or alcohol. ? Eating a healthy and balanced diet to prevent constipation. This may include: ? Choosing foods that are high in fiber, such as beans, whole grains, and fresh fruits and vegetables. ? Limiting foods that are high in fat and processed sugars, such as fried and sweet foods. Lifestyle ? Lose weight if needed. ? Do not use any products that contain nicotine or tobacco. These include cigarettes, chewing tobacco, and vaping devices, such as e-cigarettes. If you need help quitting, ask your health care provider. General instructions ? Take nlcj-vak-wuhzirf and prescription medicines only as told by your health care provider. ? If you were prescribed an antibiotic medicine, take it as told by your health care provider. Do not stop taking the antibiotic even if you start to feel better. ? Use any implants or pessary as told by your health care provider. ? If needed, wear pads to absorb urine leakage. ? Keep a log to track how much and when you drink, and when you need to urinate. This will help your health care provider monitor yo (more content not included)... Normal [facility] Urology Office/Clinic Noteon 06-06-2022 Urology Office/Clinic Note Chief Complaint pt here for PFPT #3 HPI Staff Pt is here for PFPT #3 due to stress incontinence. Urinary Symptoms Blood in Urine: No Frequency of Urination: Moderate Nocturia: Moderate Urgency of Urination: Moderate Urinary Incontinence: Moderate Weak Urinary Stream: No Review of Systems PHQ Score Initial Depression Screen Score: 0 no fever, chills, malaise, myalgia. no rash/lesions. no chest pain, palpitations, or SOB. no abdominal pain, nausea, vomiting. no unilateral calf swelling, redness, pain Physical Exam Vitals & Measurements HR: 74(Peripheral) BP: 144/88 General: nontoxic, NAD Mouth: moist mucosa Lungs: normal respiratory effort Cardio: regular rate, good distal perfusion Abdomen: nondistended, no suprapubic distention or tenderness, no CVA tenderness Neurologic: Grossly normal Skin: No rashes or suspicious lesions Assessment/Plan 1. Stress incontinence, female (N39.3: Stress incontinence (female) (male)) PFPT #3 performed today. Home exercise program prescribed 4x per day: Contract - 5-7 sec Relax - 10 Reps - 7 NO CHANGE. Quick Flicks - 5 DECREASED. PT TO FOCUS ON STRENGTH Pt will return in 1 week(s) for session #4 Ordered: 82190 EMG anal/ureth[place] sphincter no needle 44253 Biofeedback training, perineal muscles, anorectal 54834 Anorectal Manometry 31311 ELECTRICAL STIMULATION 61605 Urnls Dip Stick Auto w/o Microscopy POC 01555 Follow-up No qualifying data available 1 WEEK Patient Education Overactive Bladder, Adult Problem List/Past Medical History Ongoing Hyperlipidemia Hypertension Smoker Smoker Stress incontinence, female Historical Embolic stroke Essential hypertension None Procedure/Surgical History None. Medications atorvastatin, Oral, Daily [facility] ASPIRIN EC 81 MG TABLET, 0 lisinopril metoprolol 100 mg ER Tab, 100 mg= 1 tab(s), Oral, Daily Pro-Air HFA CFC free 90 mcg/inh MDI Allergies No Known Allergies Social History Alcohol - Low Risk, 06/16/2017 Current, Wine, 1-2 times per year, Alcohol use interferes with work or home: No. Drinks more than intended: No. Others hurt by drinking: No. Ready to change: No. Household alcohol concerns: No., 10/17/2018 Tobacco - High Risk, 06/16/2017 10 or more cigarettes (1/2 pack or more)/day in last 30 days Tobacco Use:. Never Smokeless Tobacco Use:. Cigarettes, 25 year(s). Yes, 06/06/2022 Family History Hypertension: Sister. Immunizations Vaccine Date Status Comments SARS-CoV-2 (COVID-19) mRNA BNT-162b2 vax 01/14/2021 Recorded 2022-04-05: TPV50 SARS-CoV-2 (COVID-19) mRNA BNT-162b2 vax 06/25/2020 Given Prophylaxis SARS-CoV-2 (COVID-19) mRNA BNT-162b2 vax 06/04/2020 Given Prophylaxis Lab Results Ambulatory Point of Care Results Bilirubin Urine Dipstick: Negative (06/06/22 10:58:00) Blood Urine Dipstick: Negative (06/06/22 10:58:00) Glucose Urine Dipstick: Negative (06/06/22 10:58:00) Ketones Urine Dipstick: Negative (06/06/22 10:58:00) Leukocytes Urine Dipstick: Negative (06/06/22 10:58:00) Nitrite Urine Dipstick: Negative (06/06/22 10:58:00) Protein Urine Dipstick: Negative (06/06/22 10:58:00) Specific [place] Urine Dipstick: 1.015 (06/06/22 10:58:00) Urine Appearance Urine Dipstick: Clear (06/06/22 10:58:00) Urine Color Urine Dipstick: Yellow (06/06/22 10:58:00) Urobilinogen Urine Dipstick: Normal 0.2-1 EU/dl (06/06/22 10:58:00) pH Urine Dipstick: 5.5 (06/06/22 10:58:00) Normal [facility] Comment on above: Result Comment: Elec tronically Signed By: TRUDY KNOTT PA-C.br\Date and Time Signed: 06/06/22 11:24 EDT EMG Electromyographyon 05-31 EM[facility] Electromyography [id number]:12 7 Normal [facility] Patient Educationon 05-31-19 23 Patient Education Obstetrics and Gynec ology Overactive Bladder, Adult Overactive bladder refers to a condition in which a person has a sudden need to pass urine. The person may leak urine if he or she cannot get to the bathroom fast enough (urinary incontinence). A person with this condition may also wake up several times in the night to go to the bathroom. Overactive bladder is associated with poor nerve signals between your bladder and your brain. Your bladder may get the signal to empty before it is full. You may also have very sensitive muscles that make your bladder squeeze too soon. These symptoms might interfere with daily work or social activities. What are the causes? This condition may be associated with or caused by: ? Urinary tract infection. ? Infection of nearby tissues, such as the prostate. ? Prostate enlargement. ? Surgery on the uterus or urethra. ? Bladder stones, inflammation, or tumors. ? Drinking too much caffeine or alcohol. ? Certain medicines, especially medicines that get rid of extra fluid in the body (diuretics). ? Muscle or nerve weakness, especially from: ? A spinal cord injury. ? Stroke. ? Multiple sclerosis. ? Parkinson's disease. ? Diabetes. ? Constipation. What increases the risk? You may be at greater risk for overactive bladder if you: ? Are an older adult. ? Smoke. ? Are going through menopause. ? Have prostate problems. ? Have a neurological disease, such as stroke, dementia, Parkinson's disease, or multiple sclerosis (MS). ? Eat or drink things that irritate the bladder. These include alcohol, spicy food, and caffeine. ? Are overweight or obese. What are the signs or symptoms? Symptoms of this condition include: ? Sudden, strong urge to urinate. ? Leaking urine. ? Urinating 8 or more times a day. ? Waking up to urinate 2 or more times a night. How is this diagnosed? Your health care provider may suspect overactive bladder based on your symptoms. He or she will diagnose this condition by: ? A physical exam and medical history. ? Blood or urine tests. You might need bladder or urine tests to help determine what is causing your overactive bladder. You might also need to see a health care provider who specializes in urinary tract problems (urologist). How is this treated? Treatment for overactive bladder depends on the cause of your condition and whether it is mild or severe. You can also make lifestyle changes at home. Options include: ? Bladder training. This may include: ? Learning to control the urge to urinate by following a schedule that directs you to urinate at regular intervals (timed voiding). ? Doing Kegel exercises to strengthen your pelvic floor muscles, which support your bladder. Toning these muscles can help you control urination, even if your bladder muscles are overactive. ? Special devices. This may include: ? Biofeedback, which uses sensors to help you become aware of your body's signals. ? Electrical stimulation, which uses electrodes placed inside the body (implanted) or outside the body. These electrodes send gentle pulses of electricity to strengthen the nerves or muscles that control the bladder. ? Women may use a plastic device that fits into the vagina and supports the bladder (pessary). ? Medicines. ? Antibiotics to treat bladder infection. ? Antispasmodics to stop the bladder from releasing urine at the wrong time. ? Tricyclic antidepressants to relax bladder muscles. ? Injections of botulinum toxin type A directly into the bladder tissue to relax bladder muscles. ? Lifestyle changes. This may include: ? Weight loss. Talk to your health care provider about weight loss methods that would work best for you. ? Diet changes. This may include reducing how much alcohol and caffeine you consume, or drinking fluids at different times of the day. ? Not smoking. Do not use any products that contain nicotine or tobacco, such as cigarettes and e-cigarettes. If you need help quitting, ask your health care provider. ? Surgery. ? A device may be implanted to help manage the nerve signals that control urination. ? An electrode may be implanted to stimulate electrical signals in the bladder. ? A procedure may be done to change the shape of the bladder. This is done only in very severe cases. Follow these instructions at home: Lifestyle ? Make any diet or lifestyle changes that are recommended by your health care provider. These may include: ? Drinking less fluid or drinking fluids at different times of the day. ? Cutting down on caffeine or alcohol. ? Doing Kegel exercises. ? Losing weight if needed. ? Eating a healthy and balanced diet to prevent constipation. This may include: ? Eating foods that are high in fiber, such as fresh fruits and vegetables, whole grains, and beans. ? Limiting foods that are high in fat and processed sugars, such as fried and sweet foods. General instructions ? Take ove (more content not included)... Normal [facility] Urology Office/Clinic Noteon 05-30-2022 Urology Office/Clinic Note Chief Complaint PFPT #2 HPI Staff Pt here for PFPT #2 for stress incontinence. Pt states she has been doing her homework . Pt states it is feeling somewhat better since the first PF. Urinary Symptoms Blood in Urine: No Frequency of Urination: Moderate Nocturia: Moderate Urgency of Urination: Mild Urinary Incontinence: Moderate Weak Urinary Stream: No Review of Systems no fever, chills, malaise, myalgia. no rash/lesions. no chest pain, palpitations, or SOB. no abdominal pain, nausea, vomiting. no unilateral calf swelling, redness, pain Physical Exam General: nontoxic, NAD Mouth: moist mucosa Lungs: normal respiratory effort Cardio: regular rate, good distal perfusion Abdomen: nondistended, no suprapubic distention or tenderness, no CVA tenderness Neurologic: Grossly normal Skin: No rashes or suspicious lesions Assessment/Plan 1. Stress incontinence, female (N39.3: Stress incontinence (female) (male)) Wears as many as 6 thick pads/day. MARLON with coughing, sneezing. Mild leaking with intercourse. No leaking with bending, lifting, getting out of car, standing up from chair. PFPT #2 performed today. Was able to hold 5-7 sec but not steady/consistent. Will work on strength and consistency at home. Home exercise program prescribed 4x per day: Contract - 5-7 Relax - 10 Reps - 7 Quick Flicks - 7 Pt will return in 1 week(s) for session #3 Ordered: 04398 EMG anal/urethral sphincter no needle 05474 Biofeedback training, perineal muscles, anorectal 31090 Anorectal Manometry 52062 ELECTRICAL STIMULATION 89187 Urnls Dip Stick Auto w/o Microscopy POC 88019 Follow-up With When Contact Information [facility] [address] [place] [address] Business (1) Additional Instructions: for procedure as scheduled Patient Education Overactive Bladder, Adult Problem List/Past Medical History Ongoing Hyperlipidemia Hypertension Smoker Smoker Stress incontinence, female Historical Embolic stroke Essential hypertension None Procedure/Surgical History None. Medications atorvastatin, Oral, Daily CVS ASPIRIN EC 81 MG TABLET, 0 lisinopril metoprolol 100 mg ER Tab, 100 mg= 1 tab(s), Oral, Daily Pro-Air HFA CFC free 90 mcg/inh MDI Allergies No Known Allergies Social History Alcohol - Low Risk, 06/16/2017 Current, Wine, 1-2 times per year, Alcohol use interferes with work or home: No. Drinks more than intended: No. Others hurt by drinking: No. Ready to change: No. Household alcohol concerns: No., 10/17/2018 Tobacco - High Risk, 06/16/2017 10 or more cigarettes (1/2 pack or more)/day in last 30 days Tobacco Use:. Never Smokeless Tobacco Use:. Cigarettes, 25 year(s). Yes, 05/23/2022 Family History Hypertension: Sister. Immunizations Vaccine Date Status Comments SARS-CoV-2 (COVID-19) mRNA BNT-162b2 vax 01/14/2021 Recorded 2022-04-05: TPV50 SARS-CoV-2 (COVID-19) mRNA BNT-162b2 vax 06/25/2020 Given Prophylaxis SARS-CoV-2 (COVID-19) mRNA BNT-162b2 vax 06/04/2020 Given Prophylaxis Lab Results Ambulatory Point of Care Results Bilirubin Urine Dipstick: Negative (05/30/22 11:22:00) Blood Urine Dipstick: Negative (05/30/22 11:22:00) Glucose Urine Dipstick: Negative (05/30/22 11:22:00) Ketones Urine Dipstick: Negative (05/30/22 11:22:00) Leukocytes Urine Dipstick: Negative (05/30/22 11:22:00) Nitrite Urine Dipstick: Negative (05/30/22 11:22:00) Protein Urine Dipstick: Negative (05/30/22 11:22:00) Specific Flushing Urine Dipstick: 1.020 (05/30/22 11:22:00) Urine Appearance Urine Dipstick: Clear (05/30/22 11:22:00) Urine Color Urine Dipstick: Yellow (05/30/22 11:22:00) Urobilinogen Urine Dipstick: Normal 0.2-1 EU/dl (05/30/22 11:22:00) pH Urine Dipstick: 5.5 (05/30/22 11:22:00) Normal [facility] Comment on above: Result Comment: Elec tronically Signed By: TRUDY KNOTT PA-C.esteban\Date and Time Signed: 05/30/22 13:37 EDT EMG Electromyographyon 05-24 EMG Electromyography [id number]:12 7 Normal [facility] EMG Electromyography [id number]:12 7 Normal [facility] Ambulatory Visit Summaryon 0 05-23-2022 Ambulatory Visit Summary DEYSI HERNANDEZ :1960 Visit Date:05/23/2022 Ambulatory Visit Instructions Your Diagnosis Stress incontinence, female Urinary urgency Urinary frequency Tests Performed Urnls Dip Stick Auto w/o Microscopy POC 90007 Your Care Team Attending Physician - TRUDY KNOTT PA-C Primary Care Physician - SHAIKH THOMPSON This Is Your Medications List Contact prescribing physician if questions or concerns Misc Prescription (CVS ASPIRIN EC 81 MG TABLET) albuterol (Pro-Air HFA CFC free 90 mcg/inh MDI) atorvastatin lisinopril metoprolol (metoprolol 100 mg ER Tab) Procedures Performed None. Discharge Vitals Heart Rate (Peripheral) 72 Blood Pressure 127/85 What to do next Scheduled Follow-Up Appointments Saturday 10:30 AM EDT With: TRUDY KNOTT PA-C Where: [facility] Invalid Interpretation Code [address] [place] [address]- \. br\ Saturday 10:30 AM EDT \.br\ With: TRUDY KNOTT PA-C\.br\ Where: [facility] Patient Educationon 05-24-19 Patient Education Obstetrics and Gynec ology Kegel Exercises Kegel exercises can help strengthen your pelvic floor muscles. The pelvic floor is a group of muscles that support your rectum, small intestine, and bladder. In females, pelvic floor muscles also help support the womb (uterus). These muscles help you control the flow of urine and stool. Kegel exercises are painless and simple, and they do not require any equipment. Your provider may suggest Kegel exercises to: ? Improve bladder and bowel control. ? Improve sexual response. ? Improve weak pelvic floor muscles after surgery to remove the uterus (hysterectomy) or (females). ? Improve weak pelvic floor muscles after prostate gland removal or surgery (males). Kegel exercises involve squeezing your pelvic floor muscles, which are the same muscles you squeeze when you try to stop the flow of urine or keep from passing gas. The exercises can be done while sitting, standing, or lying down, but it is best to vary your position. Exercises How to do Kegel exercises: 1. Squeeze your pelvic floor muscles tight. You should feel a tight lift in your rectal area. If you are a female, you should also feel a tightness in your vaginal area. Keep your stomach, buttocks, and legs relaxed. 2. Hold the muscles tight for up to 10 seconds. 3. Breathe normally. 4. Relax your muscles. 5. Repeat as told by your health care provider. Repeat this exercise daily as told by your health care provider. Continue to do this exercise for at least 4?6 weeks, or for as long as told by your health care provider. You may be referred to a physical therapist who can help you learn more about how to do Kegel exercises. Depending on your condition, your health care provider may recommend: ? Varying how long you squeeze your muscles. ? Doing several sets of exercises every day. ? Doing exercises for several weeks. ? Making Kegel exercises a part of your regular exercise routine. This information is not intended to replace advice given to you by your health care provider. Make sure you discuss any questions you have with your health care provider. Document Released: 01/21/2013 Document Revised: 09/24/2018 Document Reviewed: 09/24/2018 [employer] Patient Education ? 2019 [employer] ([employer]). [facility] Urology Office/Clinic Noteon 05-23-2022 Urology Office/Clinic Note Chief Complaint pt here for PFPT #1127 HPI Staff Pt here for PFPT #1 due to stress incontinence Urinary Symptoms Blood in Urine: No Frequency of Urination: Severe Nocturia: Moderate Urgency of Urination: Severe Urinary Incontinence: Moderate Weak Urinary Stream: No Duration: Months Associated Signs and Symptoms: Physical Exam Vitals & Measurements HR: 72(Peripheral) BP: 127/85 General: nontoxic, NAD Mouth: moist mucosa Lungs: normal respiratory effort Cardio: regular rate, good distal perfusion Abdomen: nondistended, no suprapubic distention or tenderness, no CVA tenderness Neurologic: Grossly normal Skin: No rashes or suspicious lesions Assessment/Plan UA completed in office today shows no microhematuria or signs of infection. 1. Stress incontinence, female (N39.3: Stress incontinence (female) (male)) PFPT #1 performed today. Home exercise program prescribed 4x per day: Contract - 5 Relax - 10 Reps - 7 Quick Flicks - 5 Pt will return in 1 week(s) for session #2 Ordered: 12186 EMG anal/urethral sphincter no needle 33774 Biofeedback training, perineal muscles, anorectal 65331 Anorectal Manometry 49593 ELECTRICAL STIMULATION 15128 Urnls Dip Stick Auto w/o Microscopy POC 31243 2. Urinary urgency (R39.15: Urgency of urination) see#1 Ordered: 73587 EMG anal/urethral sphincter no needle 56029 Biofeedback training, perineal muscles, anorectal 37282 Anorectal Manometry 72203 ELECTRICAL STIMULATION 38608 3. Urinary frequency (R35.0: Frequency of micturition) see #1 Ordered: 97487 EMG anal/urethral sphincter no needle 45373 Biofeedback training, perineal muscles, anorectal 70839 Anorectal Manometry 46957 ELECTRICAL STIMULATION 45215 Follow-up No qualifying data available 1 week Patient Education Kegel Exercises Problem List/Past Medical History Ongoing Hyperlipidemia Hypertension Smoker Smoker Stress incontinence, female Historical Embolic stroke Essential hypertension None Procedure/Surgical History None. Medications atorvastatin, Oral, Daily CVS ASPIRIN EC 81 MG TABLET, 0 lisinopril metoprolol 100 mg ER Tab, 100 mg= 1 tab(s), Oral, Daily Pro-Air HFA CFC free 90 mcg/inh MDI Allergies No Known Allergies Social History Alcohol - Low Risk, 06/16/2017 Current, Wine, 1-2 times per year, Alcohol use interferes with work or home: No. Drinks more than intended: No. Others hurt by drinking: No. Ready to change: No. Household alcohol concerns: No., 10/17/2018 Tobacco - High Risk, 06/16/2017 10 or more cigarettes (1/2 pack or more)/day in last 30 days Tobacco Use:. Never Smokeless Tobacco Use:. Cigarettes, 25 year(s). Yes, 05/23/2022 Family History Hypertension: Sister. Immunizations Vaccine Date Status Comments SARS-CoV-2 (COVID-19) mRNA BNT-162b2 vax 01/14/2021 Recorded 2022-04-05: TPV50 SARS-CoV-2 (COVID-19) mRNA BNT-162b2 vax 06/25/2020 Given Prophylaxis SARS-CoV-2 (COVID-19) mRNA BNT-162b2 vax 06/04/2020 Given Prophylaxis Lab Results Ambulatory Point of Care Results Bilirubin Urine Dipstick: Negative (05/23/22 10:42:00) Blood Urine Dipstick: Trace-intact (05/23/22 10:42:00) Glucose Urine Dipstick: Negative (05/23/22 10:42:00) Ketones Urine Dipstick: Negative (05/23/22 10:42:00) Leukocytes Urine Dipstick: Negative (05/23/22 10:42:00) Nitrite Urine Dipstick: Negative (05/23/22 10:42:00) Protein Urine Dipstick: Negative (05/23/22 10:42:00) Specific Flushing Urine Dipstick: 1.015 (05/23/22 10:42:00) Urine Appearance Urine Dipstick: Clear (05/23/22 10:42:00) Urine Color Urine Dipstick: Light yellow (05/23/22 10:42:00) Urobilinogen Urine Dipstick: Normal 0.2-1 EU/dl (05/23/22 10:42:00) pH Urine Dipstick: 5.5 (05/23/22 10:42:00) Normal [facility] Comment on above: Result Comment: Elec tronically Signed By: NGUYỄN BRIDGES, TRUDY Goldsmith\.br\Date and Time Signed: 05/23/22 12:12 EDT Pre-Certification Formon Pre-Certification Form [id number]:1 27 Normal [facility] HEMOGLOBINon 04-30-2022 Hemoglobin (Bld) [Mass/Vol] 15.3 g/dL Normal 12.0-16.[address] [facility] Comment on above: Performed By: #### A MY, CMP, LIPA #### [facility] [address] [place] [address] Dr. oMreno Amato Physician Referralon 023 Physician Referral [id number]:12 7 Normal [facility] Ambulatory Visit Summaryon 0 04-11-2022 Ambulatory Visit Summary DEYSI HERNANDEZ :1960 Visit Date:04/11/2022 Ambulatory Visit Instructions Your Diagnosis Stress incontinence, female Tests Performed Urnls Dip Stick Auto w/o Microscopy POC 62069 Your Care Team Attending Physician - TRUDY KNOTT PA-C Primary Care Physician - SHAIKH THOMPSON Referring Physician - Xavier STAFFORD MD This Is Your Medications List Contact prescribing physician if questions or concerns Misc Prescription (CVS ASPIRIN EC 81 MG TABLET) albuterol (Pro-Air HFA CFC free 90 mcg/inh MDI) lisinopril metoprolol (metoprolol 100 mg ER Tab) [Image Removed: STOP]Stop taking these medications amlodipine (amLODIPine 10 mg Tab) Procedures Performed None. Discharge Vitals Heart Rate (Peripheral) 71 Blood Pressure 146/88 Height 163 cm Height 64 in Weight 74 kg Weight 162.8 lb BMI 27.85 What to do next You Need to Schedule the Following Appointments Follow Up with TRUDY KNOTT PA-C, URL When: Where: [address] [place] [address] Medications What How Much When Instructions Unchanged albuterol (Pro-Air HFA CFC free 90 mcg/ inh MDI) Contact prescribing physician if questions or concerns Unchanged lisinopril Contact prescribing physician if questions or concerns Unchanged metoprolol (metoprolol 100 mg ER Tab) 1 Tablets By Mouth Every day Contact prescribing physician if questions or concerns Unchanged Misc Prescription (CVS ASPIRIN EC 81 MG TABLET) 0 Contact prescribing physician if questions or concerns What When Comments Stop Taking amlodipine (amLODIPine 10 mg Tab) Test Results Urnls Dip Stick Auto w/o Microscopy POC 25722 (04/11/2022) Bilirubin Urine Dipstick - Negative Blood Urine Dipstick - Trace-intact Glucose Urine Dipstick - Negative Ketones Urine Dipstick - Negative Leukocytes Urine Dipstick - Trace Nitrite Urine Dipstick - Negative Protein Urine Dipstick - 1+ (30 mg/dl) Specific Flushing Urine Dipstick - 1.025 Urine Appearance Urine Dipstick - Clear Urine Color Urine Dipstick - Yellow Urobilinogen Urine Dipstick - Normal 0.2-1 EU/dl pH Urine Dipstick - 5 Allergies No Known Allergies Problems Ongoing - Any problem that you are currently receiving treatment for. Hyperlipidemia Hypertension Smoker Smoker Stress incontinence, female Historical - Any problem that you are no longer receiving treatment for. Embolic stroke Essential hypertension None Education Materials Kegel Exercises Kegel exercises can help strengthen your pelvic floor muscles. The pelvic floor is a group of muscles that support your rectum, small intestine, and bladder. In females, pelvic floor muscles also help support the womb (uterus). These muscles help you control the flow of urine and stool. Kegel exercises are painless and simple, and they do not require any equipment. Your provider may suggest Kegel exercises to: ? Improve bladder and bowel control. ? Improve sexual response. ? Improve weak pelvic floor muscles after surgery to remove the uterus (hysterectomy) or (females). ? Improve weak pelvic floor muscles after prostate gland removal or surgery (males). Kegel exercises involve squeezing your pelvic floor muscles, which are the same muscles you squeeze when you try to stop the flow of urine or keep from passing gas. The exercises can be done while sitting, standing, or lying down, but it is best to vary your position. Exercises How to do Kegel exercises: 1. Squeeze your pelvic floor muscles tight. You should feel a tight lift in your rectal area. If you are a female, you should also feel a tightness in your vaginal area. Keep your stomach, buttocks, and legs relaxed. 2. Hold the muscles tight for up to 10 seconds. 3. Breathe normally. 4. Relax your muscles. 5. Repeat as told by your health care provider. Repeat this exercise daily as told by your health care provider. Continue to do this exercise for at least 4?6 weeks, or for as long as told by your health care provider. You may be referred to a physical therapist who can help you learn more about how to do Kegel exercises. Depending on your condition, your health care provider may recommend: ? Varying how long you squeeze your muscles. ? Doing several sets of exercises every day. ? Doing exercises for several weeks. ? Making Kegel exercises a part of your regular exercise routine. This information is not intended to replace advice given to you by your health care provider. Make sure you discuss any questions you have with your health care provider. Document Released: 01/21/2013 Document Revised: 09/24/2018 Document Reviewed: 09/24/2018 [employer] Patient Education ? 2020 [employer] ([employer]). Marielena Ramirez [facility] Patient Educationon 04-11-19 23 Patient Education Obstetrics and Gynec ology Kegel Exercises Kegel exercises can help strengthen your pelvic floor muscles. The pelvic floor is a group of muscles that support your rectum, small intestine, and bladder. In females, pelvic floor muscles also help support the womb (uterus). These muscles help you control the flow of urine and stool. Kegel exercises are painless and simple, and they do not require any equipment. Your provider may suggest Kegel exercises to: ? Improve bladder and bowel control. ? Improve sexual response. ? Improve weak pelvic floor muscles after surgery to remove the uterus (hysterectomy) or (females). ? Improve weak pelvic floor muscles after prostate gland removal or surgery (males). Kegel exercises involve squeezing your pelvic floor muscles, which are the same muscles you squeeze when you try to stop the flow of urine or keep from passing gas. The exercises can be done while sitting, standing, or lying down, but it is best to vary your position. Exercises How to do Kegel exercises: 1. Squeeze your pelvic floor muscles tight. You should feel a tight lift in your rectal area. If you are a female, you should also feel a tightness in your vaginal area. Keep your stomach, buttocks, and legs relaxed. 2. Hold the muscles tight for up to 10 seconds. 3. Breathe normally. 4. Relax your muscles. 5. Repeat as told by your health care provider. Repeat this exercise daily as told by your health care provider. Continue to do this exercise for at least 4?6 weeks, or for as long as told by your health care provider. You may be referred to a physical therapist who can help you learn more about how to do Kegel exercises. Depending on your condition, your health care provider may recommend: ? Varying how long you squeeze your muscles. ? Doing several sets of exercises every day. ? Doing exercises for several weeks. ? Making Kegel exercises a part of your regular exercise routine. This information is not intended to replace advice given to you by your health care provider. Make sure you discuss any questions you have with your health care provider. Document Released: 01/21/2013 Document Revised: 09/24/2018 Document Reviewed: 09/24/2018 [employer] Patient Education ? 2019 [employer] ([employer]). Marielena Ramirez [facility] Urology Office/Clinic Noteon 04-11-2022 Urology Office/Clinic Note Chief Complaint Pt here to discuss incontinence HPI Staff New pt here due to incontinence. Pt is a new pt, never before seen in our office. (verified in chart logic) Dysuria: denies Incomplete bladder emptying: denies Hematuria: denies Frequency: 6-8 x day Urgency: admits Nocturia:2 x night Stream:normal Leaking: admit Wearing pads/ Depends: yes Urge incontinence: denies History of Present Illness staff HPI reviewed and agree. Tests Reviewed: Reviewed UA. Review of Systems PHQ Score Initial Depression Screen Score: 0 no fever, chills, malaise, myalgia. no rash/lesions. no chest pain, palpitations, or SOB. no abdominal pain, nausea, vomiting. no unilateral calf swelling, redness, pain Physical Exam Vitals & Measurements HR: 71(Peripheral) BP: 146/88 HT: 64 in HT: 163 cm WT: 74 kg WT: 162.8 lb BMI: 27.85 General: nontoxic, NAD Mouth: moist mucosa Lungs: normal respiratory effort Cardio: regular rate, good distal perfusion Abdomen: nondistended, no suprapubic distention or tenderness, no CVA tenderness Neurologic: Grossly normal Skin: No rashes or suspicious lesions Assessment/Plan 1. Stress incontinence, female (N39.3: Stress incontinence (female) (male)) Deysi is a 61 yo female new patient referred for urinary incontinence. Had UTI in July last year, went to the ER, was septic. MARLON started after this. UA today shows trace leuks, neg for blood. Wears as many as 6 thick pads/day. MARLON with coughing, sneezing. Mild leaking with intercourse. No leaking with bending, lifting, getting out of car, standing up from chair. Pt admits to drinking a lot of water but fluid intake has been stable for many years. Nothing new. Hx of 2 natural births. S/p ablation 2009. Is post-menopausal. Still has uterus. 03/27/22: BUN 23. Crea 1.30. eGFR 42. I went over the options for treatment with the patient. We discussed conservative treatment with pelvic floor exercises with or without a physical therapist. We also discussed vaginal inserts such as anti-incontinence pessaries and the Impressa tampon. Definitive treatment including urethral bulking agents and mid-urethral sling were discussed as these are options offered by my colleagues. Details of each procedure, success rates, recovery/downtime expectations, and risks were discussed at length. We also spoke briefly about traditional slings with autologous fascia. This is also a very successful procedure without the use of synthetic mesh. It does however require a significantly longer recovery period and has a slightly higher risk of voiding dysfunction. And pt understands that it is not offered by our physicians so she would need referred elsewhere. Based on the above discussion the patient pt prefers to proceed with PFPT in [facility] in meantime. Follow-up With When Contact Information NGUYỄN BRIDGES, TRUDY Goldsmith, URL [address] [place] [address] Additional Instructions: Follow up for PFPT with biofeedback Patient Education Kegel Exercises Documentation recorded by the scrhipolito Plata accurately reflects the services(s) I performed and decisions made by me. Authenticated by Trudy Knott PA-C on 04/11/2022 13:17:40. I, Jolene Plata, personally scribed for JANELLE Moore on 04/11/2022 11:52:31. . Problem List/Past Medical History Ongoing Hyperlipidemia Hypertension Smoker Smoker Stress incontinence, female Historical Embolic stroke Essential hypertension None Procedure/Surgical History None. Medications [facility] ASPIRIN EC 81 MG TABLET, 0 lisinopril metoprolol 100 mg ER Tab, 100 mg= 1 tab(s), Oral, Daily Pro-Air HFA CFC free 90 mcg/inh MDI Allergies No Known Allergies Social History Alcohol - Low Risk, 06/16/2017 Current, Wine, 1-2 times per year, Alcohol use interferes with work or home: No. Drinks more than intended: No. Others hurt by drinking: No. Ready to change: No. Household alcohol concerns: No., 10/17/2018 Tobacco - High Risk, 06/16/2017 10 or more cigarettes (1/2 pack or more)/day in last 30 days Tobacco Use:. Never Smokeless Tobacco Use:. Cigarettes, 25 year(s). Yes, 04/11/2022 Family History Hypertension: Sister. Immunizations Vaccine Date Status Comments SARS-CoV-2 (COVID-19) mRNA BNT-162b2 vax 01/14/2021 Recorded 2022-04-05: TPV50 SARS-CoV-2 (COVID-19) mRNA BNT-162b2 vax 06/25/2020 Given Prophylaxis SARS-CoV-2 (COVID-19) mRNA BNT-162b2 vax 06/04/2020 Given Prophylaxis Lab Results Ambulatory Point of Care Results Bilirubin Urine Dipstick: Negative (04/11/22 10:42:00) Blood Urine Dipstick: Trace-intact (04/11/22 10:42:00) Glucose Urine Dipstick: Negative (04/11/22 10:42:00) Ketones Urine Dipstick: Negative (04/11/22 10:42:00) Leukocytes Urine Dipstick: Trace (04/11/22 10:42:00) Nitrite Urine Dipstick: Negative (04/11/22 10:42:00) Protein Urine Dipstick: 1+ (30 mg/dl) (04/11/22 (more content not included)... Normal [facility] Comment on above: Result Comment: Elec tronically Signed By: TRUDY KNOTT PA-C\.br\Date and Time Signed: 04/11/22 13:17 EST\.br\Electronically Co-Signed By: Jolene Plata\.br\Date and Time Co-Signed: 04/11/22 11:55 EST Lab Reportson 04-04-2022 Lab Reports [id number]:12 [id number] Normal [facility] LIPID PROFILEon 03-27-2022 CHOL-HDL RATIO NORM SEE BELOW Normal [facility] Comment on above: Result Comment: 3.3 - 4.4 LOW RISK 4.4 - 7.1 AVERAGE RISK 7.1 - 11.0 MODERATE RISK >11.0 HIGH RISK Performed By: #### A MY, CMP, LIPA #### [facility] [address] [address] [address] Moreno Amato Cholesterol [Mass/Vol] 217 mg/dL Critically high <=[address] [facility] Comment on above: Performed By: #### A MY, CMP, LIPA #### [facility] [address] [address] [address] Moreno Amato Cholesterol in HDL [Mass/Vol] 42 mg/dL Normal 40-60 [facility] Comment on above: Performed By: #### A MY, CMP, LIPA #### [facility] [address] [address] [address] Moreno Amato Cholesterol in LDL [Mass/Vol] 121.6 mg/dL Normal [facility] Comment on above: Performed By: #### A MY, CMP, LIPA #### [facility] [address] [address] [address] Moreno Amato Cholesterol.total/Chol esterol in HDL [Mass ratio] 5.2 {ratio} Normal [facility] Comment on above: Performed By: #### A MY, CMP, LIPA #### [facility] [address] [address] [address] Moreno Amato HDL NORMAL > or = 60 mg/dl - LO W CARDIOVASCULAR RISK <40 mg/dl - HIGH CARDIOVASCULAR RISK Normal [facility] Comment on above: Performed By: #### A MY, CMP, LIPA #### [facility] [address] [address] [address] Moreno Amato LDL CALC NORMAL SEE BELOW Normal [facility] Comment on above: Result Comment: <100 mg/dl OPTIMAL 100 - 129 mg/dl NEAR OR ABOVE OPTIMAL 130 - 159 mg/dl BORDERLINE HIGH 160 - 189 mg/dl HIGH >190 mg/dl VERY HIGH Performed By: #### A MY, CMP, LIPA #### [facility] [address] [address] [address] Moreno Amato Triglyceride [Mass/Vol] 267 mg/dL Critically high <=[address] [facility] Comment on above: Performed By: #### A MY, CMP, LIPA #### [facility] [address] [address] [address] Moreno Amato VLDL CALC 53.4 mg/dL Normal [facility] Comment on above: Performed By: #### A MY, CMP, LIPA #### [facility] [address] [address] [address] Moreno Amato PROF CHEM 8 (BAS METB)on Anion gap [Moles/Vol] 11.1 mmol/L Normal [facility] Comment on above: Performed By: #### A MY, CMP, LIPA #### [facility] [address] [address] [address] Moreno Amato Calcium [Mass/Vol] 9.2 mg/dL Normal 8.5-10.1 [facility] Comment on above: Performed By: #### A MY, CMP, LIPA #### [facility] [address] [address] [address] Moreno Amato Chloride [Moles/Vol] 104 mmol/L Normal 98-107 [facility] Comment on above: Performed By: #### A MY, CMP, LIPA #### [facility] [address] [address] [address] Moreno Amato CO2 [Moles/Vol] 27.4 mmol/L Normal 21.0-32.0 [facility] Comment on above: Performed By: #### A MY, CMP, LIPA #### [facility] [address] [address] [address] Moreno Amato Creatinine [Mass/Vol] 1.30 mg/dL Critically high 0.55-1.02 [facility] Comment on above: Performed By: #### A MY, CMP, LIPA #### [facility] [address] [address] [address] Moreno Amato EGFR-AF CITIZEN [place] 51 mL/min/1.73m2 Critically low >=60 [facility] Comment on above: Performed By: #### A MY, CMP, LIPA #### [facility] [address] [address] [address] Moreno Amato EGFR-NON AF CITIZEN OF [place] 42 mL/min/1.73m2 Critically low >=[address] [facility] Comment on above: Performed By: #### A MY, CMP, LIPA #### [facility] [address] [address] [address] Moreno Amato Glucose [Mass/Vol] 102 mg/dL Normal 74-106 [facility] Comment on above: Performed By: #### A MY, CMP, LIPA #### [facility] [address] [place] [address] Dr. Moreno Amato Potassium [Moles/Vol] 4.5 mmol/L Normal 3.5-5.[address] [facility] Comment on above: Performed By: #### A MY, CMP, LIPA #### [facility] [address] [place] [address] Dr. Moreno Amato Sodium [Moles/Vol] 138 mmol/L Normal 136-145 [facility] Comment on above: Performed By: #### A MY, CMP, LIPA #### [facility] [address] [place] [address] Dr. Moreno Amato Urea nitrogen [Mass/Vol] 23.0 mg/dL Critically high 7.0-18.0 [facility] Comment on above: Performed By: #### A MY, CMP, LIPA #### [facility] [address] [place] [address] Dr. Moreno Amato Urea nitrogen/Creatinine [Mass ratio] 17.7 mg/mg Normal [facility] Comment on above: Performed By: #### A MY, CMP, LIPA #### [facility] [address] [place] [address] Dr. Moreno Johnson 03-27-2022 AST [Catalytic activity/Vol] 24 U/L Normal 15-[address] [facility] Comment on above: Performed By: #### A MY, CMP, LIPA #### [facility] [address] [place] [address] Dr. Moreno ROSEPTon 03-27-2022 ALT [Catalytic activity/Vol] 20 U/L Normal 14-[address] [facility] Comment on above: Performed By: #### A MY, CMP, LIPA #### [facility] [address] [place] [address] Dr. Moreno Amato COVID/FLU RT-PCRon 3 SARS-CoV-2 (COVID-19) RNA ELISA+probe Ql (Unsp spec) Negative [employer] Other COVID/FLU RT-PCR Negative Poikos Other Quick Strepon 03-19-2022 S. pyogenes Org specific cx Ql (Throat) Negative [employer] Other Quick Strep [employer] Other Javier 03-13-2022 L ----- Specimen: [id number] Received: 03/13/22 Status: NELL Cristhian Num: [id number] Spec Type: Surgical Subm Dr: Kevyn Deras MD Tissues: A Colon Biopsy (POLYP RECTAL-SIGMOID) Procedures: HE/2, Gross/Micro L4 Age/ Patient Sex Location Account Attending Physician Deysi Hernandez 61/F [id number] Kevyn Deras MD SPEC NUM: [id number] RECD: 03/13/22 STATUS: NELL CHIANG NUM: [id number] FELIX: 03/13/22 [facility] DR: Kevyn Deras MD ENTERED: 03/13/22 [facility] [address]: URSULA TYPE: Surgical DEPT: S ORDERED: HE/2, Gross/Micro L4 ORDERED: HE/2, Gross/Micro L4 Pathological Diagnosis Colon, rectosigmoid, polypectomy: - Tubular adenoma of colon, no high grade dysplasia seen. Clinical Information History polyps Gross Description Received in formalin labeled with the patient's name, number and rectosigmoid polyp is one fragment of soft beckman tissue measuring 1.1 x 0.6 x 0.3 cm admixed with mucoid material. Entirely submitted in one cassette labeled A1. Microscopic Description Two glass slides with H E stained material have been examined. The microscopic findings support the above pathologic diagnosis. CPT Codes 07050 Specimen: [id number] Received: 03/13/22 Status: NELL Chiang Num: [id number] Spec Type: Surgical Subm Dr: Kevyn Deras MD Tissues: A Colon Biopsy (POLYP RECTAL-SIGMOID) Procedures: HE/2, Gross/Micro L4 Patient: Deysi Hernandez [id number] (Continued) Signed (signature on file) Marquez Desir MD 03/14/22 1254 [facility] Tobacco Screening.on 023 Adult depression screening assessment No [facility] [address] DO Work Phone: Fall risk assessment c) Not medically indicated [facility] [address] DO Work Phone: Tobacco use status CP b) No [facility] [address] DO Work Phone: PAP ACOG PANEL 2: 30 to 65on 03-02-2022 . . Normal [facility] Comment on above: Result Comment: Perf ormed at: WB Performed By: #### A MY, CMP, LIPA #### [facility] [address] [address] [address] Moreno Amato Age Gdln ACOG Testing 30-65 Normal [facility] Comment on above: Performed By: #### A MY, CMP, LIPA #### [facility] [address] [address] [address] Moreno Amato DIAGNOSIS: Comment Normal [facility] Comment on above: Result Comment: NEGA TIVE FOR INTRAEPITHELIAL LESION OR MALIGNANCY. Performed at: WB Performed By: #### A MY, CMP, LIPA #### [facility] [address] [place] [address] Dr. Moreno Amato HPV Aptima Negative Normal Negative [facility] Comment on above: Result Comment: This nucleic acid amplification test detects fourteen high-risk HPV types (16,18,31,33,35,39,45,51,52,56,58,59,66,68) without differentiation. Performed at: =G Performed By: #### A MY, CMP, LIPA #### [facility] [address] [place] [address] Dr. Moreno Amato HPV Genotype Reflex Comment Normal [facility] Comment on above: Result Comment: Crit eria not met, HPV Genotype not performed. Performed at: WB Performed By: #### A TOMMY, CMP, LIPA #### [facility] [address] [place] [address] Dr. Moreno Amato Methodology: Comment Normal [facility] Comment on above: Result Comment: This liquid based ThinPrep(R) pap test was screened with the use of an image guided system. Performed at: WB Performed By: #### A MY, CMP, LIPA #### [facility] [address] [place] [address] Dr. Moreno Amato Note: Comment Normal [facility] Comment on above: Result Comment: The Pap smear is a screening test designed to aid in the detection of premalignant and malignant conditions of the uterine cervix. It is not a diagnostic procedure and should not be used as the sole means of detecting cervical cancer. Both false-positive and false-negative reports do occur. . Performed at: WB Performed By: #### A MY, CMP, LIPA #### [facility] [address] [place], [place] [address] Dr. Moreno Amato Performed by: Comment Normal [facility] Comment on above: Result Comment: Maria Luisa Chou, Take Out Waiter/Waitress (ASCP) Performed at: WB Performed By: #### A MY, CMP, LIPA #### [facility] [address] [place], [place] [address] Dr. Moreno Amato Specimen adequacy: Comment Normal [facility] Comment on above: Result Comment: Sati sfactory for evaluation. Endocervical and/or squamous metaplastic cells (endocervical component) are present. Performed at: WB Performed By: #### A MY, CMP, LIPA #### [facility] [address] [place], [place] [address] Dr. Moreno Amato XR CHEST 2 Von 02-20-2022 XR CHEST 2 V EXAM: XR CHEST 2 V REASON FOR EXAM: Female, 61 years, COUGH. TECHNIQUE: PA and lateral views of the chest are performed. COMPARISON: 08/13/2021. FINDINGS: The lungs are expanded and clear. Normal pleura. Prominent epicardial fat pad on the left is noted. Normal size heart. Normal mediastinum and kelly. Normal visualized pulmonary arteries. Normal visualized aortic arch and descending thoracic aorta. Normal visualized thoracic spine. Normal visualized ribs, clavicles, and shoulders. There is no demonstrated abnormality of the visualized soft tissue structures of the upper abdomen. IMPRESSION: No acute process in the chest. Electronically authenticated by: AMY ROSS Date: 2022-02-19 22:40 Normal [facility] CARDIAC STRESS/REST INJE CTIONon [facility]-23-2022 [facility]JE[facility] Patient Name: DEYSI HERNANDEZ STUDY: MYOCARDIAL PERFUSION STRESS TEST WITH LEXISCAN Performing facility: [facility], [address] [place] [address], [address], [place] [address] [facility] Provider: Carlene Beal MD, FACC PCP: Dr. Mariann Thompson Supervising provider: Autumn Guidry RN, HOT PUNCH PRESS OPERATOR INDICATION: Chest discomfort Elevated troponin Hyperlipidemia HISTORY: Gender: F; Age: 61 y/o ; Height: 0 cm; Weight: 71.1756357 kg. High Cholesterol; HTN; Chest Pain; Quit smoking <1 year ago. COMPARISON: No comparison. ACCESSION NUMBER(S): [id number]; [id number]; [id number] ORDERING CLINICIAN: MARQUEZ BEAL TECHNIQUE: ONE DAY protocol. Stress injection: Date:01-23-22, 35.8 mCi of Myoview IV 20 seconds after rapid injection of Lexiscan. Rest injection: Date: 01-23-22, 10.9 mCi of Myoview IV at rest. The patient had a rapid injection of 0.4 mg of Lexiscan IV over 10 seconds. Imaging was performed by gated tomographic technique. Reason for Lexiscan: dizziness/unsteady/fall risk STRESS TEST DATA: Resting heart rate was 61 BPM. Resting blood pressure was 114/76 mmHg. Peak blood pressure was 96/62 mmHg. Peak heart rate was 95 BPM. TEST TERMINATED DUE TO: Protocol completed FINDINGS: STRESS TEST RESULTS: Resting electrocardiogram revealed normal sinus rhythm nonspecific ST-T changes. There were no significant ischemic ECG changes or dysrhythmias. The patient did not have chest pains/symptoms during procedure. There was a normal recovery phase. IMAGING RESULTS: Image quality was good. Rest and stress tomographic images were reviewed and revealed normal perfusion without evidence of ischemia, myocardial infarction, or left ventricular dilatation with stress. Overall left ventricular systolic function appeared to be normal without regional wall motion abnormalities. Ejection fraction was 72%. TID is 0.92 and is normal. There were no evidence of attenuation artifact. IMPRESSION: Normal Lexiscan Myoview cardiac perfusion stress test. No evidence of ischemia or myocardial infarction by perfusion imaging. Normal left ventricular systolic function, ejection fraction 72%. No previous study available for comparison. Electronically signed by: WAQAR MARTINEZ MD Normal [facility] No Panel Informationon 01-23 Normal [facility] [employer] [facility] [employer] [facility] 600 DO Work Phone: Tobacco Screening.on 022 Fall risk assessment a) No falls within the last year [facility] 600 DO Work Phone: Tobacco use status [facility] b) [facility] Work Phone: MG MAMM SCREEN 3D NIRMALA CADon 10-30-2021 MG MAMM SCREEN 3D NIRMALA CAD Patient: DEYSI HERNANDEZ Exam Date: 10/30/2021 : 1960 Gender:F Ordering : SHAIKH Ford THOMPSON . Admission #: [id number] Family : Order #: [id number] CLICK HERE TO VIEW EXAM RADIOLOGY REPORT PROCEDURE: MAMMOGRAM SCREENING 3D BILATERAL CAD COMPARISON: MG MAMM NIRMALA SCRN W CAD DIG, 12/05/2012. INDICATIONS: Screening mammography Calculator Name NCI Breast Cancer Risk Assessment Tool 5 Year Breast Cancer Risk 1.00% Lifetime Breast Cancer Risk 5.50% Personal Breast Cancer No Personal Ovarian Cancer No Treatments None Family Cancers None LOCATION: [facility] BREAST COMPOSITION: Scattered areas fibroglandular density. FINDINGS: DIAGNOSTIC CATEGORY 2--BENIGN FINDING: RIGHT BREAST: No significant suspicious finding. No significant change has occurred. LEFT BREAST: No significant suspicious finding. Scattered benign-appearing calcifications are present. No significant change has occurred. RECOMMENDATIONS: ROUTINE MAMMOGRAM AND CLINICAL EVALUATION IN 12 MONTHS. PLEASE NOTE: A NORMAL MAMMOGRAM DOES NOT EXCLUDE THE POSSIBILITY OF BREAST CANCER. A CLINICALLY SUSPICIOUS PALPABLE LUMP SHOULD BE BIOPSIED. Dictated by: Christiano Rod M.D. on 10/31/2021 at 08:50 Approved by: Christiano Rod M.D. on 10/31/2021 at 08:[address] [facility] Cardiac Stress Teston 2021 Cardiac Stress Test [address], [address] [place] [address] Exercise Stress Test Patient Name: DEYSI HERNANDEZ Ordering Physician: [id number] Beal MD Study Date: 10/17/2021 Reading Physician: [id number] Newman MD, [facility] MRN/PID: [id number] Supervising Physician: [id number] Jaycob Newman MD, [facility] Accession/Order#: [id number] Referring Physician: [id number] BEAL Date of : 1960 PCP: Mariann THOMPSON Gender: M Fellow: Height: 162.56 cm Nurse: Jackie Shen RN Weight: 68.95 kg Inclusion Teacher: KYLE BSA: 1.74 m2 Technologist: BMI: 26.09 kg/m2 Additional Staff: Age: 61 years cc report to: Patient Location: cc report to: [id number] Marquez Beal MD Study Type: Cardiac Stress Test Diagnosis/ICD: R07.89-Other chest pain Indication: Chest Pain Atypical Procedure/CPT: Stress Test Interpretation-[id number]; Stress Test Supervision-[id number] Falls Risk: Low: Patient has low risk for sustaining a fall; environmental safety interventions in place. Study Details: Correct procedure and correct patient verified verbally. Patient History: Allergies: None. Patient Performance: The peak heart rate achieved was 95 bpm, which was 59 % of the age predicted target heart rate of 161 bpm. The resting blood pressure was 100/60 mmHg with a heart rate of 64 bpm. The standing blood pressure was 102/60 mmHg with a heart rate of 62 bpm. The patient's functional capacity was below average. The patient developed LEG PAIN AND WEAKNESS during the stress exam. The symptoms resolved with rest. The blood pressure response was normal. The test was terminated due to: leg fatigue and musculoskeletal weakness and patient request. Baseline ECG: Resting ECG showed normal sinus rhythm. Stress Stage Data: + +--+--- ---+-------+ + HR Sys BP Auguste BP Comments + +--+--- ---+-------+ + Baseline Resting 64 100 60 + +--+--- ---+-------+ + Baseline Standing 62 102 60 + +--+--- ---+-------+ + Stage I 95 144 68 PT. STATES LEGS FEEL WOBBLY + +--+--- ---+-------+ + Recovery ECG: The heart rate recovery was normal. + +--+------+- ------+ HR Sys BP Auguste BP + +--+------+- ------+ Recovery I 94 138 70 + +--+------+- ------+ Recovery II 88 132 68 + +--+------+- ------+ Recovery III 66 122 64 + +--+------+- ------+ Recovery IV 64 102 62 + +--+------+- ------+ Summary: 1. 1_nondiagnostic exercise tolerance test due to failure of the patient to achieve target heart rate, patient was able only to achieve 59% of predicted maximal heart rate and a workload of 4.6 METS after completing only 2 minutes on a Andrae protocol. The test ended due to legs fatigue and discomfort. 2_no chest pain, cardiac arrhythmias or ischemic EKG changes noted at low level of exercise 3_if ischemic heart disease is suspected a pharmacological nuclear stress test is recommended. 2. The adequate level of stress was achieved. [id number] Jaycob Newman MD, FACC Electronically signed on 10/23/2021 at 12:29:13 PM Final [facility] Cardiac Stress Test Please click on the link to view the study images [facility] Work Phone: Cardiac Stress Test MP-No [facility] 250 DO Work Phone: Creatinine and Glomerular fi ltration rate.predicted panel (S/P/Bld)Ordered By: Marquez Beal on 09-18-2021 Creatinine [Mass/Vol] 1.10 mg/dL 0.44-1.03 [facility] Estimated glomerular filtrat ion rate (GFR) non- AmericanOrdered By: Marquez Beal on 09-18-2021 GFR/1.73 sq M.predicted among non-blacks MDRD (S/P/Bld) [Vol rate/Area] 51 mL/Min [facility] No Panel InformationOrdered By: Marquez Beal on 09-18-2021 Estimated GFR () > 60 mL/Min [facility] Comment on above: GFR estimated refere nce range: According to KDOQI guidelines, <60 ml/min/1.73m2 is sufficient to diagnose a patient with chronic kidney disease. Pharmacy Creatinine Clearance (Chem N/A [facility] No Panel Informationon 09-18 9.8\S\9.8 Normal 8.2-10.2 [facility] [address] DO Work Phone: Comment on above: PERFORMED BY:[address] [address] [address] [place], [place] [id number] MEDICAL DIRECTORJERAMY CALDWELL M.D. 25.1\S\25.1 Normal 22.0-30.0 [facility] 250 DO Work Phone: 100\S\100 Normal 95-114 [facility] 250 DO Work Phone: 3.9\S\3.9 Normal 3.5-5.1 [facility] 250 DO Work Phone: 138\S\138 Normal 136-146 [facility] 250 DO Work Phone: > 60 Normal [facility] 250 DO Work Phone: Comment on above: GFR estimated refere nce range: According to KDOQI guidelines, <60 ml/min/1.73m2 is sufficient to diagnose a patient with chronic kidney disease. 51\S\51 Normal [facility] 250 DO Work Phone: 1.10\S\1.10 above high threshold 0.44-1.03 [facility] 250 DO Work Phone: 15\S\15 Normal 9-23 [facility] 250 DO Work Phone: 95\S\95 Normal 70-100 [facility] 250 DO Work Phone: Comment on above: Random Glucose Refer ence Range is dependent on time and content of last meal. Glucose of more than 200 mg/dL in a nonstressed, ambulatory subject supports the diagnosis of Diabetes Mellitus. ADA recommended reference range Serum or plasma calcium teagan urement (mass/volume)Ordered By: Marquez Beal on 09-18-2021 Calcium [Mass/Vol] 9.8 mg/dL 8.2-10.2 [facility] Serum or plasma chloride sophia surement (moles/volume)Ordered By: Marquez Beal on 09-18-2021 Chloride [Moles/Vol] 100 mmol/L 95-114 [facility] Serum or plasma glucose teagan urement (mass/volume)Ordered By: Marquez Beal on 09-18-2021 Glucose [Mass/Vol] 95 mg/dL 70-100 [facility] Comment on above: ADA recommended refe rence range Random Glucose Reference Range is dependent on time and content of last meal. Glucose of more than 200 mg/dL in a nonstressed, ambulatory subject supports the diagnosis of Diabetes Mellitus. Serum or plasma potassium me asurement (moles/volume)Ordered By: Marquez Beal on 09-18-2021 Potassium [Moles/Vol] 3.9 mmol/L 3.5-5.1 [facility] Serum or plasma sodium measu rement (moles/volume)Ordered By: Marquez Beal on 09-18-2021 Sodium [Moles/Vol] 138 mmol/L 136-146 [facility] Serum or plasma total carbon dioxide measurement (moles/volume)Ordered By: Marquez Beal on 09-18-2021 CO2 [Moles/Vol] 25.1 mmol/L 22.0-30.0 [facility] Serum or plasma urea nitroge n measurement (mass/volume)Ordered By: Marquez Beal on 09-18-2021 Urea nitrogen [Mass/Vol] 15 mg/dL 9-23 [facility] Tobacco Screening.on 022 Adult depression screening assessment No [facility] [address] DO Work Phone: Fall risk assessment a) No falls within the last year [facility] DO Work Phone: Tobacco use status CPHS a) Yes [facility] 250 DO Work Phone: Tobacco Screening. Yes [facility] 250 DO Work Phone: Bacterial blood cultureOrder ed By: Bong Bansal on 08-19-2021 Bacteria identified Cx Nom (Bld) NO GROWTH 5 DAYS [facility] Basophils Auto (Bld) [#/Vol] Ordered By: Alaina Arce on 08-17-2021 Basophils (Bld) [#/Vol] 0.1 10*3/uL 0.0-0.2 [facility] Basophils/100 WBC Auto (Bld) Ordered By: Alaina Arce on 08-17-2021 Basophils/100 WBC (Bld) 0.7 % . [facility] Blood hemoglobin measurement (mass/volume)Ordered By: Alaina Arce on 08-17-2021 Hemoglobin (Bld) [Mass/Vol] 15.0 g/dL 11.8-15.4 [facility] Blood leukocytes automated c ount (number/volume)Ordered By: Alaina Arce on 08-17-2021 WBC (Bld) [#/Vol] 10.0 10*3/uL 4.5-11.0 [facility] Creatinine and Glomerular fi ltration rate.predicted panel (S/P/Bld)Ordered By: Alaina Arce on 08-17-2021 Creatinine [Mass/Vol] 1.27 mg/dL 0.44-1.03 [facility] Eosinophils Auto (Bld) [#/Vo l]Ordered By: Alaina Arce on 08-17-2021 Eosinophils (Bld) [#/Vol] 0.2 10*3/uL 0.0-0.45 [facility] Eosinophils/100 WBC Auto (Bl d)Ordered By: Alaina Arce on 08-17-2021 Eosinophils/100 WBC (Bld) 1.8 % . [facility] Erythrocyte distribution wid th Auto (RBC) [Ratio]Ordered By: Alaina Arce on 08-17-2021 Erythrocyte distribution width (RBC) [Ratio] 12.7 % 11.9-15.3 [facility] Estimated glomerular filtrat ion rate (GFR) non- AmericanOrdered By: Alaina Arce on 08-17-2021 GFR/1.73 sq M.predicted among non-blacks MDRD (S/P/Bld) [Vol rate/Area] 43 mL/Min [facility] Hematocrit Auto (Bld) [Volum e fraction]Ordered By: Alaina Arce on 08-17-2021 Hematocrit (Bld) [Volume fraction] 42.6 % 34.0-46.4 [facility] Laboratory - Hematology and Cell countsOrdered By: Alaina Arce on 08-17-2021 Nucleated RBC/100 WBC (Bld) [Ratio] 0.0 % 0-0.5 [facility] Lymphocytes Auto (Bld) [#/Vo l]Ordered By: Alaina Arce on 08-17-2021 Lymphocytes (Bld) [#/Vol] 2.4 10*3/uL 1.00-4.8 [facility] Lymphocytes/100 WBC Auto (Bl d)Ordered By: Alaina Arce on 08-17-2021 Lymphocytes/100 WBC (Bld) 23.7 % . [facility] MCH Auto (RBC) [Entitic mass ]Ordered By: Alaina Arce on 08-17-2021 MCH (RBC) [Entitic mass] 31.0 pg 24.7-34.3 [facility] MCHC Auto (RBC) [Mass/Vol]Or dered By: Alaina Arce on 08-17-2021 MCHC (RBC) [Mass/Vol] 35.3 g/dL 32.0-35.0 [facility] MCV Auto (RBC) [Entitic vol] Ordered By: Alaina Arce on 08-17-2021 MCV (RBC) [Entitic vol] 87.8 fL 80-100 [facility] Monocytes Auto (Bld) [#/Vol] Ordered By: Alaina Arce on 08-17-2021 Monocytes (Bld) [#/Vol] 1.0 10*3/uL 0.0-0.8 [facility] Monocytes/100 WBC Auto (Bld) Ordered By: Alaina Arce on 08-17-2021 Monocytes/100 WBC (Bld) 10.2 % . [facility] Neutrophils Auto (Bld) [#/Vo l]Ordered By: Alaina Arce on 08-17-2021 Neutrophils (Bld) [#/Vol] 6.3 10*3/uL 1.8-7.7 [facility] Neutrophils/100 WBC Auto (Bl d)Ordered By: Alaina Arce on 08-17-2021 Neutrophils/100 WBC (Bld) 63.6 % . [facility] No Panel InformationOrdered By: Alaina Arce on 08-17-2021 Estimated GFR () 52 mL/Min [facility] Comment on above: GFR estimated refere nce range: According to KDOQI guidelines, <60 ml/min/1.73m2 is sufficient to diagnose a patient with chronic kidney disease. Pharmacy Creatinine Clearance (Chem 47.54 [facility] Platelet mean volume Auto (B ld) [Entitic vol]Ordered By: Alaina Arce on 08-17-2021 Platelet mean volume (Bld) [Entitic vol] 8.5 fL 6.3-10.7 [facility] Platelets Auto (Bld) [#/Vol] Ordered By: Alaina Arce on 08-17-2021 Platelets (Bld) [#/Vol] 241 10*3/uL 150-450 [facility] RBC Auto (Bld) [#/Vol]Ordere d By: Alaina Arce on 08-17-2021 RBC (Bld) [#/Vol] 4.85 10*6/uL 3.60-5.00 [facility] Serum or plasma calcium teagan urement (mass/volume)Ordered By: Alaina Arce on 08-17-2021 Calcium [Mass/Vol] 8.9 mg/dL 8.2-10.2 [facility] Serum or plasma chloride sophia surement (moles/volume)Ordered By: Alaina Arce on 08-17-2021 Chloride [Moles/Vol] 101 mmol/L 95-114 [facility] Serum or plasma glucose teagan urement (mass/volume)Ordered By: Alaina Arce on 08-17-2021 Glucose [Mass/Vol] 132 mg/dL 70-100 [facility] Comment on above: ADA recommended refe rence range Random Glucose Reference Range is dependent on time and content of last meal. Glucose of more than 200 mg/dL in a nonstressed, ambulatory subject supports the diagnosis of Diabetes Mellitus. Serum or plasma potassium me asurement (moles/volume)Ordered By: Alaina Arce on 08-17-2021 Potassium [Moles/Vol] 2.9 mmol/L 3.5-5.1 [facility] Comment on above: Results called at 0721 on 08/17/21 Serum or plasma sodium measu rement (moles/volume)Ordered By: Alaina Arce on 08-17-2021 Sodium [Moles/Vol] 137 mmol/L 136-146 [facility] Serum or plasma total carbon dioxide measurement (moles/volume)Ordered By: Alaina Arce on 08-17-2021 CO2 [Moles/Vol] 25.3 mmol/L 22.0-30.0 [facility] Serum or plasma urea nitroge n measurement (mass/volume)Ordered By: Alaina Arce on 08-17-2021 Urea nitrogen [Mass/Vol] 17 mg/dL 9-23 [facility] Albumin [Mass/volume] in Ser um or PlasmaOrdered By: Alaina Arce on 08-16-2021 Albumin [Mass/Vol] 3.1 g/dL 3.2-5.5 [facility] Globulin Calc (S) [Mass/Vol] Ordered By: Alaina Arce on 08-16-2021 Globulin (S) [Mass/Vol] 3.0 g/dL [facility] Protein [Mass/volume] in Ser um or PlasmaOrdered By: Alaina Arce on 08-16-2021 Protein [Mass/Vol] 6.1 g/dL 6.1-7.9 [facility] Serum or plasma alanine sepncer otransferase measurement without P-5'-P (enzymatic activiOrdered By: Alaina Arce on 08-16-2021 ALT No additional P-5'-P [Catalytic activity/Vol] 57 U/L 10-60 [facility] Serum or plasma albumin/glob ulin mass ratioOrdered By: Alaina Arce on 08-16-2021 Albumin/Globulin [Mass ratio] 1.0 {ratio} [facility] Serum or plasma alkaline calvin sphatase measurement (enzymatic activity/volume)Ordered By: Alaina Arce on 08-16-2021 ALP [Catalytic activity/Vol] 76 U/L 32-92 [facility] Serum or plasma aspartate am inotransferase measurement (enzymatic activity/volume)Ordered By: Alaina Arce on 08-16-2021 AST [Catalytic activity/Vol] 47 U/L 10-42 [facility] Serum or plasma total biliru bin measurement (mass/volume)Ordered By: Alaina Arce on 08-16-2021 Bilirubin [Mass/Vol] 1.5 mg/dL 0.3-1.2 [facility] Comment on above: Samples from patient s who have taken Naproxen have shown spurious elevation in Total Bilirubin levels. A metabolite of Naproxen, O-desmethylnaproxen, has been shown to interfere with the Jess method for measuring Total Bilirubin. Amphetamine Screen Ql (U)Ord ered By: Alaina Arce on 08-15-2021 Amphetamines Ql (U) Negative Negative [facility] Antithrombin measurement (un its/volume) in platelet poor plasma by chromogenic methodOrdered By: Janet Hamm on 08-15-2021 Antithrombin Chromogenic method Qn (PPP) 113 % 75-135 [facility] Comment on above: Direct Xa inhibitor anticoagulants such as rivaroxaban, apixaban and edoxaban will lead to spuriously elevated antithrombin activity levels possibly masking a deficiency. Barbiturates [Presence] in U rineOrdered By: Alaina Arce on 08-15-2021 Barbiturates Ql (U) Negative Negative [facility] Benzodiazepines [Presence] i n UrineOrdered By: Alaina Arce on 08-15-2021 Benzodiazepines Ql (U) Negative Negative [facility] Beta 2 glycoprotein 1 IgG Ab [Units/volume] in SerumOrdered By: Janet Hamm on 08-15-2021 Beta 2 glycoprotein 1 IgG Qn (S) <9 0-20 [facility] Comment on above: Result Units: GPI Ig G units The reference interval reflects a 3SD or 99th percentile interval, which is thought to represent a potentially clinically significant result in accordance with the International Consensus Statement on the classification criteria for definitive antiphospholipid syndrome (APS). J Thromb Haem 2006;4:295-306. Beta 2 glycoprotein 1 IgM Ab [Units/volume] in SerumOrdered By: Janet Hamm on 08-15-2021 Beta 2 glycoprotein 1 IgM Qn (S) <9 0-32 [facility] Comment on above: Result Units: GPI Ig M units The reference interval reflects a 3SD or 99th percentile interval, which is thought to represent a potentially clinically significant result in accordance with the International Consensus Statement on the classification criteria for definitive antiphospholipid syndrome (APS). J Thromb Haem 2006;4:295-306. Cannabinoids [Presence] in U rine by Screen methodOrdered By: Alaina Arce on 08-15-2021 Cannabinoids Screen Ql (U) Negative Negative [facility] Comment on above: These are unconfirme d results and should not be used for legal purposes. Drug Cut-Off Concentration: AMPH 1000 ng/mL DRAKE 200 ng/mL UNIQUE 200 ng/mL COCM 300 ng/mL OP 300 ng/mL PCP 25 ng/mL THC 20 ng/mL Cardiolipin IgG Ab [Units/vo lume] in Serum by ImmunoassayOrdered By: Janet Hamm on 08-15-2021 Cardiolipin IgG IA Qn (S) <9 GPL U/mL 0-14 [facility] Comment on above: Negative: <15 Indeterminate: 15 - 20 Low-Med Positive: >20 - 80 High Positive: >80 Cardiolipin IgM Ab [Units/vo lume] in Serum by ImmunoassayOrdered By: Janet Hamm on 08-15-2021 Cardiolipin IgM IA Qn (S) 17 MPL U/mL 0-12 [facility] Comment on above: Negative: <13 Indeterminate: 13 - 20 Low-Med Positive: >20 - 80 High Positive: >80 Cholesterol [Mass/volume] in Serum or PlasmaOrdered By: Janet Hamm on 08-15-2021 Cholesterol [Mass/Vol] 259 mg/dL 140-200 [facility] Comment on above: Chol less than 200 m g/dl low risk Chol 201-239 mg/dl borderline risk Chol 240 mg/dl and greater high risk Cholesterol in LDL Calc [Mas s/Vol]Ordered By: Janet Hamm on 08-15-2021 Cholesterol in LDL [Mass/Vol] 176 mg/dL 0-100 [facility] Comment on above: LDL ATP III CLASSIFI CATION LDL less than 100 mg/dL Optimal LDL 100-129 mg/dL Near or above optimal LDL 130-159 mg/dL Borderline high LDL 160-189 mg/dL High LDL greater than 189 mg/dL Very high Cholesterol in VLDL Calc [Ma ss/Vol]Ordered By: Janet Hamm on 08-15-2021 Cholesterol in VLDL [Mass/Vol] 32 mg/dL [facility] Dilute Vinay's viper venom timeOrdered By: Janet Hamm on 08-15-2021 dRVVT Coag (PPP) [Time] 45.5 s 0.0-47.0 [facility] Free protein S measurementOr dered By: Janet Hamm on 08-15-2021 Protein S Free Ag IA Qn (PPP) 134 % 61-136 [facility] Functional protein C measure mentOrdered By: Janet Hamm on 08-15-2021 Protein C actual/normal Chromogenic method (PPP) [Rel catalytic activity/Vol] 158 % 73-180 [facility] Laboratory - Drug toxicology Ordered By: Alaina Arce on 08-15-2021 Opiates Ql (U) Negative Negative [facility] Lupus anticoagulant [Interpr etation] in Platelet poor plasmaOrdered By: Janet Hamm on 08-15-2021 Lupus anticoagulant (PPP) [Interp] Comment: . [facility] Comment on above: No lupus anticoagula nt was detected. No Panel InformationOrdered By: Janet Hamm on 08-15-2021 Activated Protein C Resist Confirm 2.6 ratio 2.2-3.5 [facility] Comment on above: The APCR result may be falsely increased (masking an abnormal, low APCR result) in patients on direct Xa inhibitor (e.g., rivaroxaban, apixaban, edoxaban) or a direct thrombin inhibitor (e.g., dabigatran) anticoagulant therapy due to assay interference by these drugs. Phencyclidine Screen Ql (U)O rdered By: Alaina Arce on 08-15-2021 Phencyclidine Ql (U) Negative Negative [facility] Plasminogen measurementOrder ed By: Janet Hamm on 08-15-2021 Plasminogen actual/normal Chromogenic method (PPP) [Rel catalytic activity/Vol] 119 % 70-150 [facility] Platelet poor plasma ratio o f lupus anticoagulant-sensitive activated partial thromboOrdered By: Janet Hamm on 08-15-2021 aPTT.lupus sensitive.excess phospholipid actual/normal Coag (PPP) [Relative time] 38.6 sec 0.0-47.6 [facility] Prothrombin gene [id number] mut ation detectionOrdered By: Janet Hamm on 08-15-2021 F2 gene targeted mutation analysis Molgen Nom (Bld/Tiss) See comment . [facility] Comment on above: Result: c.*97G>A - N ot Detected This result is not associated with an increased risk for venous thromboembolism. See Additional Clinical Information and Comments. Additional Clinical Information: Venous thromboembolism is a multifactorial disease influenced by genetic, environmental, and circumstantial risk factors. The c.*97G>A variant in the F2 gene is a genetic risk factor for venous thromboembolism. Heterozygous carriers have a 2- to 4-fold increased risk for venous thromboembolism. Homozygotes for the c.*97G>A variant are rare. The annual risk of VTE in homozygotes has been reported to be 1.1%/year. Individuals who carry both a c.*97G>A variant in the F2 gene and a c.1601G>A (p. [id number]) variant in the F5 gene (commonly referred to as Factor V Leiden) have an approximately 20- fold increased risk for venous thromboembolism. Risks are likely to be even higher in more complex genotype combinations involving the F2 c.*97G>A variant and Factor V Leiden (PMID: [id number]). Additional risk factors include but are not limited to: deficiency of protein C, protein S, or antithrombin III, age, male sex, personal or family history of deep vein thromboembolism, smoking, surgery, prolonged immobilization, malignant neoplasm, tamoxifen treatment, raloxifene treatment, oral contraceptive use, hormone replacement therapy, and . Management of thrombotic risk and thrombotic events should follow established guidelines and fit the clinical circumstance. This result cannot predict the occurrence or recurrence of a thrombotic event. Comments: Genetic counseling is recommended to discuss the potential clinical implications of positive results, as well as recommendations for testing family members. Genetic Coordinators are available for health care providers to discuss results at [phone] ([phone]). Test Details: Variant analyzed: c.*97G>A, previously referred to as [id number] Methods/Limitations: DNA analysis of the F2 gene (NM_[id number]) was performed by PCR amplification followed by restriction enzyme analysis. The diagnostic sensitivity is >99%. Results must be combined with clinical information for the most accurate interpretation. Molecular-based testing is highly accurate, but as in any laboratory test, diagnostic errors may occur. False positive or false negative results may occur for reasons that include genetic variants, blood transfusions, bone marrow transplantation, somatic or tissue-specific mosaicism, mislabeled samples, or erroneous representation of family relationships. This test was developed and its performance characteristics determined by [employer]. It has not been cleared or approved by the Food and Drug Administration. References: Taj Church, Briana MCLAUGHLIN, Gilberto R, Bogdan WW, Yanick JH; [employer] Professional Practice and Guidelines Committee. Addendum: [employer] consensus statement on factor V Leiden mutation testing. Zoë Med. 2020Apr 22. doi: 10.1038/j70975-086-26149-b. PMID: 12466474. Edgardo KRISHNA. Prothrombin Thrombophilia. 2005Sep 11 [Updated 2020Mar 24]. In: Rober MP, Thaddeus HH, Iman RA, et al., editors. Aliyah(R) [Internet]. [place] ([place]): [facility]; 0266-3391. Available from: https://www.ncbi.nlm.nih.gov/books/SPI2458/ Ariel S, Briana MCLAUGHLIN, Aakash X, Grady B, Vidal EB, Siobhan P, Anny CS; [employer] Laboratory Warehouse Operator Committee. Venous thromboembolism laboratory testing (factor V Leiden and factor II c.*97G>A), 2018 update: a technical standard of the [employer] ([employer]). Zo[employer] Med. 2018 Jan;20(12):4692-1883. doi: 10.1038/x64390-032-5514-a. Epub 2017Nov 22. PMID: [id number]. Evon Negron, PhD, FAC Otis Guthrie, PhD, FACMG Rehan Goodson, PhD, FACMG Nick Bergeron, PhD, FACMG W Mona Pagan, PhD, FACMG Vee Mera, PhD, FACMG Gregoria Carrasco, PhD, FAC Performed at: - [facility] [id number] Purchasing Associate: Harshad Acosta PhD, Phone: [phone] Performed at: - [facility] [id number] Purchasing Associate: Veronica Ring MD, Phone: [phone] Performed at: - [facility] [address] [place], [place] [id number] Purchasing Associate: Becky Cabezas [facility], Phone: [phone] Serum or plasma high density lipoprotein (HDL) cholesterol measurementOrdered By: Janet Hamm on 08-15-2021 Cholesterol in HDL [Mass/Vol] 50 mg/dL 35-85 [facility] Comment on above: HDL CHOL ATP-III CLA SSIFICATION Cardiovascular Risk HDL > or equal to 60 mg/dL LOW HDL < 40 mg/dL HIGH Serum or plasma homocysteine measurement (moles/volume)Ordered By: Janet Hamm on 08-15-2021 Homocysteine [Moles/Vol] 12.8 umol/L 0.0-14.5 [facility] Serum or plasma total choles terol/high density lipoprotein (HDL) cholesterol mass ratOrdered By: Janet Hamm on 08-15-2021 Cholesterol.total/Chol esterol in HDL [Mass ratio] 5.2 {ratio} <5.0 [facility] Triglyceride [Mass/volume] i n Serum or PlasmaOrdered By: Janet Hamm on 08-15-2021 Triglyceride [Mass/Vol] 164 mg/dL 35-149 [facility] Comment on above: TRIG ATP III CLASSIF ICATION TRIG less than 150 mg/dL Normal TRIG 150-199 mg/dL Borderline high TRIG 200-500 mg/dL High TRIG greater than 500 mg/dL Very high Standard traceable to the Center for Disease Conrtrol and Prevention (CDC) test method. Urine cocaine detectionOrder ed By: Alaina Arce on 08-15-2021 Cocaine Ql (U) Negative Negative [facility] Urine culture routineOrdered By: Alaina Arce on 08-15-2021 Bacteria identified Cx Nom (U) 2 Days [facility] aPTT.lupus sensitive (LA scr een)Ordered By: Janet Hamm on 08-15-2021 aPTT.lupus sensitive Coag (PPP) [Time] 35.2 sec 0.0-51.9 [facility] aPTT.lupus sensitive/aPTT.sheryl pus sensitive W excess phospholipid (screen to confirm raOrdered By: Janet Hamm on 08-15-2021 aPTT.lupus sensitive/aPTT.lupus sensitive W excess phospholipid Coag (PPP) [Ratio] 0.94 Ratio 0.00-1.34 [facility] Activated partial thrombopla stin time (aPTT) in platelet poor plasma by coagulation aOrdered By: Bong Bansal on 08-14-2021 aPTT Coag (PPP) [Time] 28.2 s 25.1-36.5 [facility] Bacterial blood cultureOrder ed By: Bong Bansal on 08-14-2021 Bacteria identified Cx Nom (Bld) NO GROWTH 5 DAYS [facility] Creatinine [Mass/volume] in UrineOrdered By: Alaina Arce on 08-14-2021 Creatinine (U) [Mass/Vol] 74.6 mg/dL [facility] Comment on above: No reference range e stablished Glucose Glucometer (BldC) [M ass/Vol]Ordered By: Alaina Arce on 08-14-2021 Glucose [Mass/Vol] 102 mg/dL [facility] Comment on above: Random Glucose Refer ence Range is dependent on time and content of last meal. Glucose of more than 200 mg/dL in a nonstressed, ambulatory subject supports the diagnosis of Diabetes Mellitus. Glucose mean value [Mass/vol ume] in Blood Estimated from glycated hemoglobinOrdered By: Janet Hamm on 08-14-2021 Average glucose Estimated from glycated hemoglobin (Bld) [Mass/Vol] 126 mg/dL [facility] Hemoglobin A1c percentageOrd ered By: Janet Hamm on 08-14-2021 HbA1c (Bld) [Mass fraction] 6.0 % 4.3-5.6 [facility] Comment on above: Increased risk for d iabetes: 5.7 - 6.4 diabetes: >6.4 glycemic control for adults with diabetes: <7.0 Laboratory - Chemistry and C hemistry - challengeOrdered By: Alaina Arce on 08-14-2021 Magnesium [Mass/Vol] 2.3 mg/dL 1.6-2.6 [facility] Laboratory - CoagulationOrde red By: Bong Bansal on 08-14-2021 PT Coag (PPP) [Time] 11.8 s 9.0-12.9 [facility] Platelet poor plasma interna tional normalized ratio (INR) by coagulation assay (relatOrdered By: Bong Bansal on 08-14-2021 INR Coag (PPP) [Relative time] 1.1 {INR} [facility] Comment on above: INR Therapeutic Rang e A) Pre- and Peroperative OAT started two weeks before surgery. NOT HIP SURGERY: 1.5 - 2.5 HIP SURGERY: 2 - 3 B) Primary and secondary prevention of venous THROMBOSIS: 2 - 3 C) Active venous thrombosis, pulmonary embolism and prevention of recurrent venous thrombosis: 2 - 3 D) Prevention of arterial thromboembolism including patients with mechanical heart valves: 3 - 4.5 Protein [Mass/volume] in Uri neOrdered By: Alaina Arce on 08-14-2021 Protein (U) [Mass/Vol] 100 mg/dL 0-9 [facility] Renin activityOrdered By: Emma Arce on 08-14-2021 Renin (P) [Catalytic activity/Vol] 27.141 ng/mL/hr 0.167-5.38 0 [facility] Comment on above: This test was develo ped and its performance characteristics determined by [employer]. It has not been cleared or approved by the Food and Drug Administration. Performed at: [facility] [address] [id number] Purchasing Associate: Veronica Ring MD, Phone: [phone] Serum or plasma aldosterone measurement (mass/volume)Ordered By: Alaina Arce on 08-14-2021 Aldosterone [Mass/Vol] 7.8 ng/dL 0.0-30.0 [facility] Comment on above: This test was develo ped and its performance characteristics determined by [employer]. It has not been cleared or approved by the Food and Drug Administration. Performed at: [facility] [address] [id number] Purchasing Associate: Veronica Ring MD, Phone: [phone] Urine protein/creatinine rat ioOrdered By: Alaina Arce on 08-14-2021 Protein/Creatinine (U) [Ratio] 1340 mg/g{Cre} 0-200 [facility] Urine sodium measurement (mo les/volume)Ordered By: Alaina Arce on 08-14-2021 Sodium (U) [Moles/Vol] 54.0 mmol/L [facility] Comment on above: No reference range e stablished AMYLASEon 08-13-2021 Amylase [Catalytic activity/Vol] 80 U/L Normal 25-115 [facility] Comment on above: Performed By: #### A MY, CMP, LIPA #### [facility] [address] [address] [address] Moreno Amato Automated erythrocytes count in urine sediment (number/area)Ordered By: Alaina Arce on 08-13-2021 RBC Auto (Urine sed) [#/Area] 5-9 [HPF] 0-4 [facility] Automated leukocytes count i n urine sediment (number/area)Ordered By: Alania Arce on 08-13-2021 WBC Auto (Urine sed) [#/Area] 20-49 [HPF] 0-4 [facility] Bilirubin Test strip Ql (U)O rdered By: Alaina Arce on 08-13-2021 Bilirubin Ql (U) Negative Negative [facility] CBC AUTO DIFFon 08-13-2021 BASO # 0.1 103/ul Normal 0.0-0.1 [facility] Comment on above: Performed By: #### C BC #### [facility] [address] [address] [address] Moreno Amato Basophils/100 WBC (Bld) 0.6 % Normal 0.2-2.0 [facility] Comment on above: Performed By: #### C BC #### [facility] [address] [address] [address] Moreno Amato EO # 0.1 103/ul Normal 0.0-0.7 [facility] Comment on above: Performed By: #### C BC #### [facility] [address] [address] [address] Moreno Amato Eosinophils/100 WBC (Bld) 0.6 % Critically low 0.9-7.0 [facility] Comment on above: Performed By: #### C BC #### [facility] [address] [address] [address] Moreno Amato Erythrocyte distribution width (RBC) [Ratio] 11.9 % Normal 11.0-15.0 [facility] Comment on above: Performed By: #### C BC #### [facility] [address] [place] [address] Dr. Moreno Amato Hematocrit (Bld) [Volume fraction] 51.0 % Critically high 36.0-48.0 [facility] Comment on above: Performed By: #### C BC #### [facility] [address] [place] [address] Dr. Moreno Amato Hemoglobin (Bld) [Mass/Vol] 18.2 g/dL Critically high 12.0-16.0 [facility] Comment on above: Performed By: #### C BC #### [facility] [address] [place] [address] Dr. Moreno Amato IG # 0.04 10e3/ul Critically high 0.00-0.03 [facility] Comment on above: Performed By: #### C BC #### [facility] [address] [place] [address] Dr. Moreno Amato IG % 0.3 % Normal 0.0-0.5 [facility] Comment on above: Performed By: #### C BC #### [facility] [address] [place] [address] Dr. Moreno Amato LYMPH # 2.2 103/ul Normal 1.2-3.8 [facility] Comment on above: Performed By: #### C BC #### [facility] [address] [place] [address] Dr. Moreno Amato Lymphocytes/100 WBC (Bld) 17.1 % Critically low 20.5-60.0 [facility] Comment on above: Performed By: #### C BC #### [facility] [address] [place] [address] Dr. Moreno Amato MANUAL DIFF REQ NO Normal [facility] Comment on above: Performed By: #### C BC #### [facility] [address] [place] [address] Dr. Moreno Amato MCH (RBC) [Entitic mass] 30.4 pg Normal 26.7-34.0 [facility] Comment on above: Performed By: #### C BC #### [facility] [address] [address] [address] Moreno Amato MCHC (RBC) [Mass/Vol] 35.7 g/dL Critically high 29.9-35.2 [facility] Comment on above: Performed By: #### C BC #### [facility] [address] [address] [address] Moreno Amato MCV (RBC) [Entitic vol] 85.1 fL Normal 81.0-99.0 [facility] Comment on above: Performed By: #### C BC #### [facility] [address] [address] [address] Moreno Amato MONO # 1.3 103/ul Critically high 0.3-0.8 [facility] Comment on above: Performed By: #### C BC #### [facility] [address] [address] [address] Moreno Amato Monocytes/100 WBC (Bld) 10.0 % Normal 1.7-12.0 [facility] Comment on above: Performed By: #### C BC #### [facility] [address] [address] [address] Moreno Amato NEUT # 9.3 103/ul Critically high 1.4-6.5 [facility] Comment on above: Performed By: #### C BC #### [facility] [address] [address] [address] Moreno Amato Neutrophils/100 WBC (Bld) 71.4 % Normal 43.0-75.[address] [facility] Comment on above: Performed By: #### C BC #### [facility] [address] [address] [address] Moreno Amato Platelet mean volume (Bld) [Entitic vol] 9.8 fL Normal 9.5-13.5 [facility] Comment on above: Performed By: #### C BC #### [facility] [address] [address] [address] Moreno Amato PLT 242 103/ul Normal 150-[address] [facility] Comment on above: Performed By: #### C BC #### [facility] [address] [place], [place] [address] Dr. Moreno Amato RBC 5.99 106/ul Critically high 4.20-5.40 [facility] Comment on above: Performed By: #### C BC #### [facility] [address] [place], [place] [address] Dr. Moreno Amato WBC 13.0 103/ul Critically high 4.0-11.0 [facility] Comment on above: Performed By: #### C BC #### [facility] [address] [place], [place] [address] ABD/PELVIS WO CONon 08-13 CT ABD/PELVIS WO CON EXAMINATION: CT ABD/PELVIS WO CON, 08/13/2021 3:00 AM EDT HISTORY: ABDOMINAL DISTENSION (GASEOUS) COMPARISON: None. TECHNIQUE: CT scan of the abdomen and pelvis was performed without IV contrast. CT dose reduction technique was used, including Automated Exposure Control. FINDINGS: There is mild bibasilar atelectasis. There is a small fat-containing left Bochdalek hernia. There is coronary artery disease. Abdomen: Please note that the sensitivity for detection of focal lesions or vascular disease is markedly reduced without intravenous contrast. The liver and spleen are unremarkable. There is no intra or extrahepatic biliary duct dilatation. The gallbladder is unremarkable. There is a right renal cyst. There is mild right renal edema and perinephric fat stranding. There are scattered colonic diverticula without evidence of acute inflammation. Otherwise, the pancreas, adrenal glands, left kidney, and bowel loops, including the appendix, are unremarkable. There is no mesenteric or retroperitoneal lymphadenopathy. Pelvis: The bladder and rectum are unremarkable. There is no iliac or inguinal lymphadenopathy. The uterus is present. The ovaries appear within normal limits by CT. There is advanced atherosclerotic disease. Bone windows show no aggressive osseous lesions. IMPRESSION: 1. Mild right renal edema and perinephric fat stranding. Please correlate with urinalysis for infection to include pyelonephritis. 2. Scattered colonic diverticula without evidence of acute inflammation. 3. Normal appendix. Electronically authenticated by: Vinay MANN Date: 2021-08-13 03:[address] [facility] CT STROKE HEAD WOon 08-14-[address] STROKE HEAD WO EXAM: CT STROKE HEAD WO CLINICAL INDICATION: DISORIENTATION, UNSPECIFIED COMPARISON: None TECHNIQUE: Axial CT images of the brain were obtained without contrast. Coronal and sagittal reformats were obtained. Dose reduction techniques were achieved by using automated exposure control and/or adjustment of mA and/or kV according to patient size and/or use of iterative reconstruction technique. FINDINGS: No intracranial hemorrhage, extra-axial fluid collection, hydrocephalus, midline shift, or acute infarction. No other mass effect. Patchy periventricular hypoattenuation is likely on the basis of chronic microvascular angiopathic changes. Mild symmetric global volume loss without lobar predominance. Commensurate prominence of the ventricular system. Patent basal cisterns. No calvarial fracture. Normal soft tissues. Trace scattered paranasal sinus mucosal thickening. Mastoid air cells are well-aerated. IMPRESSION: No acute intracranial process. Results were called to and discussed with Dr. Xavier by Dr. Leon (Boyd) on 08/13/2021 7:39 AM EDT. Electronically authenticated by: MAVIS ROSSI Date: 2021-08-13 07:[address] [facility] CULTURE URINEon 08-13-2021 CULTURE URINE Culture Observations : LIGHT GROWTH OF MIXED GENITAL ZOE. NO POTENTIAL PATHOGENS SEEN. Normal [facility] Comment on above: Performed By: #### A MY, CMP, LIPA #### [facility] [address] [place] [address] Dr. Moreno Amato Color Auto (U)Ordered By: Emma Acre on 08-13-2021 Color (U) Yellow Yellow [facility] Covid-19 PCR (CVDTBH)on 07-20 SARS-CoV-2 (COVID-19) RNA ELISA+probe Ql (Unsp spec) Not detected Normal NOT DETECTED [facility] Comment on above: Result Comment: When diagnostic testing is negative, the possibility of a false negative should be considered in the context of a patient's recent exposures and the presence of clinical signs and symptoms consistent with SARS-CoV-2. This test is not yet approved or cleared by the [place] FDA. When there are no FDA-approved or cleared tests available, and other criteria are met, FDA can make tests available under an emergency access mechanism called an Emergency Use Authorization (EUA). The EUA for this test is supported by the Sub Assembly Team Worker of Health and Human Service's declaration that circumstances exist to justify the emergency use of in vitro diagnostics for the detection and/or diagnosis of the virus that causes COVID-19. This EUA will remain in effect for the duration of the COVID-19 declaration justifying emergency of IVDs, unless it is terminated or revoked by the FDA (after which the test may no longer be used). Performed By: #### C VDTB #### [facility] [address] [place] [address] Dr. Moreno Amato ER URINE PROFILEon 2 Bilirubin Ql (U) Negative Normal NEGATIVE [facility] Comment on above: Performed By: #### Rupal ALAN UMICRO #### [facility] [address] [place] [address] Dr. Moreno Amato Clarity (U) CLEAR Normal CLEAR [facility] Comment on above: Performed By: #### Rupal ALAN UMICRO #### [facility] [address] [place] [address] Dr. Moreno Amato Color (U) LT. YELLOW Normal YELLOW [facility] Comment on above: Performed By: #### Rupal ALAN UMICRO #### [facility] [address] [place] [address] Dr. Moreno Amato ERUAHD A micrscopic examina tion will be performed if indicated. Normal [facility] Comment on above: Performed By: #### Rupal ALAN UMICRO #### [facility] [address] [place] [address] Dr. Moreno Amato Glucose Ql (U) Negative Normal NEGATIVE [facility] Comment on above: Performed By: #### Rupal ALAN UMICRO #### [facility] [address] [place] [address] Dr. Moreno Amato Hemoglobin Ql (U) MODERATE Abnormal NEGATIVE [facility] Comment on above: Performed By: #### Rupal ALAN UMICRO #### [facility] [address] [place] [address] Dr. Moreno Amato Ketones Ql (U) Negative Normal NEGATIVE [facility] Comment on above: Performed By: #### SULAIMAN FRANCISCORO #### [facility] [address] [place] [address] Dr. Moreno Amato LEUKOCYTES SMALL Abnormal NEGATIVE [facility] Comment on above: Performed By: #### SULAIMAN FRANCISCORO #### [facility] [address] [place] [address] Dr. Moreno Amato Nitrite Ql (U) Positive Abnormal NEGATIVE [facility] Comment on above: Performed By: #### SULAIMAN FRANCISCORO #### [facility] [address] [place] [address] Dr. Moreno Amato pH (U) 6.0 [pH] Normal 5-9 [facility] Comment on above: Performed By: #### SULAIMAN FRANCISCORO #### [facility] [address] [place] [address] Dr. Moreno Amato SPEC GRAVITY 1.020 Normal 1.005-<=1. 025 [facility] Comment on above: Performed By: #### SULAIMAN FRANCISCORO #### [facility] [address] [place] [address] Dr. Moreno Amato UA PROTEIN >300 Abnormal NEGATIVE/ TRACE [facility] Comment on above: Performed By: #### SULAIMAN FRANCISCORO #### [facility] [address] [place] [address] Dr. Moreno Amato UR MICRO IND INDICATED Normal [facility] Comment on above: Performed By: #### NAOMI FRANCISCO #### [facility] [address] [place] [address] Dr. Moreno Amato Urobilinogen Qn (U) 0.2 {[place]'U}/dL Normal 0.2 - 1. 0 [facility] Comment on above: Performed By: #### SULAIMAN FRANCISCORO #### [facility] [address] [place] [address] Dr. Moreno Amato Ketones Auto test strip (U) [Mass/Vol]Ordered By: Alaina Arce on 08-13-2021 Ketones (U) [Mass/Vol] Negative Negative [facility] LACTATE/LACTIC ACIDon 2021 Lactate [Moles/Vol] 1.1 mmol/L Normal 0.4-1.9 [facility] Comment on above: Performed By: #### A MY, CMP, LIPA #### [facility] [address] [place], [place] [address] Dr. Moreno Amato LIPASEon 08-13-2021 Lipase [Catalytic activity/Vol] 524.0 U/L Critically high 73.0-393.0 [facility] Comment on above: Performed By: #### A MY CMP, LIPA #### [facility] [address] [address] [address] Moreno Amato Laboratory - Chemistry and C hemistry - challengeOrdered By: Alaina Arce on 08-13-2021 Lactate [Moles/Vol] 1.6 mmol/L 0.5-2.2 [facility] - UrinalysisOrder ed By: Alaina Arce on 08-13-2021 Hyaline casts LM Ql (Urine sed) 9-19 [LPF] 0-8 [facility] Nitrite Test strip Ql (U)Ord ered By: Alaina Arce on 08-13-2021 Nitrite Ql (U) Positive Negative [facility] POINT OF CARE GLUCOSEon 07-20 Glucose [Mass/Vol] 129 mg/dL Critically high 74-106 [place] Comment on above: Performed By: #### A MY, CMP, LIPA #### [facility] [address] [address] [address] Moreno Amato PROF 14(COMP METB)on 022 Albumin [Mass/Vol] 3.4 g/dL Normal 3.4-5.0 [facility] Comment on above: Performed By: #### A MY, CMP, LIPA #### [facility] [address] [address] [address] Moreno Amato Albumin/Globulin [Mass ratio] 0.8 {ratio} Normal [facility] Comment on above: Performed By: #### A MY, CMP, LIPA #### [facility] [address] [address] [address] Moreno Amato ALP [Catalytic activity/Vol] 105 U/L Normal 46-116 [facility] Comment on above: Performed By: #### A MY, CMP, LIPA #### [facility] [address] [address] [address] Moreno Amato ALT [Catalytic activity/Vol] 22 U/L Normal 14-59 [facility] Comment on above: Performed By: #### A MY, CMP, LIPA #### [facility] [address] [address] [address] Moreno Amato Anion gap [Moles/Vol] 11.6 mmol/L Normal [facility] Comment on above: Performed By: #### A MY, CMP, LIPA #### [facility] [address] [address] [address] Moreno Amato AST [Catalytic activity/Vol] 22 U/L Normal 15-37 [facility] Comment on above: Performed By: #### A MY, CMP, LIPA #### [facility] [address] [address] [address] Moreno Amato Bilirubin [Mass/Vol] 0.7 mg/dL Normal 0.2-1.0 [facility] Comment on above: Performed By: #### A MY, CMP, LIPA #### [facility] [address] [address] [address] Moreno Amato Calcium [Mass/Vol] 9.6 mg/dL Normal 8.5-10.1 [facility] Comment on above: Performed By: #### A MY, CMP, LIPA #### [facility] [address] [address] [address] Moreno Amato Chloride [Moles/Vol] 97 mmol/L Critically low 98-107 [facility] Comment on above: Performed By: #### A MY, CMP, LIPA #### [facility] [address] [address] [address] Moreno Amato CO2 [Moles/Vol] 31.2 mmol/L Normal 21.0-32.0 [facility] Comment on above: Performed By: #### A MY, CMP, LIPA #### [facility] [address] [address] [address] Moreno Amato Creatinine [Mass/Vol] 1.64 mg/dL Critically high 0.55-1.02 [facility] Comment on above: Performed By: #### A MY, CMP, LIPA #### [facility] [address] [place] [address] Dr. Moreno Amato EGFR-AF [place] 39 mL/min/1.73m2 Critically low >=60 [facility] Comment on above: Performed By: #### A MY, CMP, LIPA #### [facility] [address] [place] [address] Dr. Moreno Amato EGFR-NON AF CITIZEN [place] 32 mL/min/1.73m2 Critically low >=60 [facility] Comment on above: Performed By: #### A MY, CMP, LIPA #### [facility] [address] [place] [address] Dr. Moreno Amato Globulin (S) [Mass/Vol] 4.1 g/dL Normal [facility] Comment on above: Performed By: #### A MY, CMP, LIPA #### [facility] [address] [place] [address] Dr. Moreno Amato Glucose [Mass/Vol] 110 mg/dL Critically high 74-106 [facility] Comment on above: Performed By: #### A MY, CMP, LIPA #### [facility] [address] [place] [address] Dr. Moreno Amato Potassium [Moles/Vol] 2.8 mmol/L Critically low 3.5-5.1 [facility] Comment on above: Performed By: #### A MY, CMP, LIPA #### [facility] [address] [place] [address] Dr. Moreno Amato Protein [Mass/Vol] 7.5 g/dL Normal 6.4-8.2 [facility] Comment on above: Performed By: #### A MY, CMP, LIPA #### [facility] [address] [address] [address] Moreno Amato Sodium [Moles/Vol] 137 mmol/L Normal 136-145 [facility] Comment on above: Performed By: #### A MY CMP, LIPA #### [facility] [address] [address] [address] Morneo Amato Urea nitrogen [Mass/Vol] 26.0 mg/dL Critically high 7.0-18.0 [facility] Comment on above: Performed By: #### A MY CMP, LIPA #### [facility] [address] [address] [address] Moreno Amato Urea nitrogen/Creatinine [Mass ratio] 15.9 mg/mg Normal [facility] Comment on above: Performed By: #### A TOMMY CMP, LIPA #### [facility] [address] [address] [address] Moreno Amato Protein Auto test strip (U) [Mass/Vol]Ordered By: Alaina Arce on 08-13-2021 Protein (U) [Mass/Vol] mg/dL Negative [facility] Specific gravity Auto test s trip (U) [Rel density]Ordered By: Alaina Arce on 08-13-2021 Specific gravity (U) [Rel density] 1.017 1.001-1.03 0 [facility] Squamous epithelial cells de tection in urine sediment by light microscopyOrdered By: Alaina Arce on 08-13-2021 Epithelial cells.squamous LM Ql (Urine sed) 3-4 [HPF] 0-2 [facility] TROPONIN, HIGH SENSITIVITYon 08-13-2021 HSTROP 91.0 pg/mL Critically high 4.0-51.3 [facility] Comment on above: Result Comment: CUT- OFF POINTS HAVE BEEN ESTABLISHED BASED ON THE FOURTH UNIVERSAL DEFINITIONS OF MYOCARDIAL INFARCTION. THE UPPER REFERENCE LIMIT (URL) OF TROPONIN, DEFINED THE 99TH PERCENTILE OF cTnI DISTRIBUTION IN A REFERENCE POPULATION, HAS BEEN CONFIRMED THE DECISION THRESHOLD FOR [place] DIAGNOSIS. Performed By: #### A MY, CMP, LIPA #### [facility] [address] [address] [address] Moreno Amato HSTROP 109.0 pg/mL Critically high 4.0-51.3 [facility] Comment on above: Result Comment: CUT- OFF POINTS HAVE BEEN ESTABLISHED BASED ON THE FOURTH UNIVERSAL DEFINITIONS OF MYOCARDIAL INFARCTION. THE UPPER REFERENCE LIMIT (URL) OF TROPONIN, DEFINED THE 99TH PERCENTILE OF cTnI DISTRIBUTION IN A REFERENCE POPULATION, HAS BEEN CONFIRMED THE DECISION THRESHOLD FOR [place] DIAGNOSIS. Performed By: #### H STROYOMI #### [facility] [address] [place] [address] Dr. Moreno Amato Troponin I.cardiac [Mass/vol ume] in Serum or Plasma by High sensitivity methodOrdered By: Alaina Arce on 08-13-2021 Troponin I.cardiac High sensitivity method [Mass/Vol] 50 pg/mL 0-15 [facility] Comment on above: Critical value result called at 1736 on 08/13/21 URINE MICROSCOPIC ONLYon BACTERIA SMALL Abnormal NONE SEEN [facility] Comment on above: Performed By: #### Rupal ALAN UMICRO #### [facility] [address] [place] [address] Dr. Moreno Amato Bacteria identified Cx Nom (U) INDICATED Normal [facility] Comment on above: Performed By: #### Rupal ALAN UMICRO #### [facility] [address] [place] [address] Dr. Moreno Amato CAST SEEN Abnormal NONE SEEN [facility] Comment on above: Performed By: #### Rupal ALAN UMICRO #### [facility] [address] [place] [address] Dr. Moreno Amato Crystals LM Nom (Urine sed) NONE SEEN Normal NONE SEEN [facility] Comment on above: Performed By: #### E DAYANNA UMICRO #### [facility] [address] [place] [address] Dr. Moreno Amato Epithelial cells LM Ql (Urine sed) FEW Abnormal NONE SEEN /RARE [facility] Comment on above: Performed By: #### E RUR UMICRO #### [facility] [address] [place] [address] Dr. Moreno Amato HYALINE CAST FEW Normal [facility] Comment on above: Performed By: #### NAOMI FRANCISCO #### [facility] [address] [address] [address] Moreno Amato MUCOUS NONE SEEN Normal NONE SEEN [facility] Comment on above: Performed By: #### SULAIMAN FRANCISCORO #### [facility] [address] [address] [address] Moreno Amato RBC 2-5 Abnormal 0-[address] [facility] Comment on above: Performed By: #### SULAIMAN FRANCISCORO #### [facility] [address] [address] [address] Moreno Amato WBC 20-50 Abnormal NONE SEEN [facility] Comment on above: Performed By: #### NAOMI FRANCISCO #### [facility] [address] [address] [address] Moreon Amato Urine bacteria detection by automated methodOrdered By: Alaina Arce on 08-13-2021 Bacteria Auto Ql (U) None seen None Seen [facility] Urine clarity by refractomet ry automatedOrdered By: Alaina Arce on 08-13-2021 Clarity Refractometry automated (U) Cloudy Clear [facility] Urine culture routineOrdered By: Alaina Arce on 08-13-2021 Bacteria identified Cx Nom (U) 2 Days [facility] [facility] [place] Urine glucose measurement by automated test strip (mass/volume)Ordered By: Alaina Arce on 08-13-2021 Glucose Auto test strip (U) [Mass/Vol] Normal mg/dL Normal [facility] [place] Urine hemoglobin detection b y automated test stripOrdered By: Alaina Arce on 08-13-2021 Hemoglobin Auto test strip Ql (U) 1+ Negative [facility] [place] Urine leukocyte esterase det ection by automated test stripOrdered By: Alaina Arce on 08-13-2021 Leukocyte esterase Auto test strip Ql (U) 1+ Negative [facility] [place] Urobilinogen Auto test strip (U) [Mass/Vol]Ordered By: Alaina Arce on 08-13-2021 Urobilinogen (U) [Mass/Vol] Normal mg/dL Normal [facility] [place] XR CHEST 1 Von 08-13-2021 XR CHEST 1 V EXAM: XR CHEST 1 V HISTORY: NAUSEA WITH VOMITING, UNSPECIFIED COMPARISON: Correlation is made with CT abdomen and pelvis examination of the same date. TECHNIQUE: One view of the chest was obtained. FINDINGS: The cardiac silhouette is normal in size. Aortic atherosclerotic disease is seen. There are mild right basilar opacities. There is no significant pneumothorax or right pleural effusion. There is a small left pleural effusion. No acute osseous abnormality is seen. IMPRESSION: 1. Mild bibasilar opacities which are new since the recent CT abdomen and pelvis examination and could represent aspiration changes and/or atelectasis. 2. Small left pleural effusion. Electronically authenticated by: Vinay MANN Date: 2021-08-13 06:28 Normal [facility] pH Auto test strip (U)Ordere d By: Alaina Arce on 08-13-2021 pH (U) 5.5 [pH] 5.0-9.0 [facility] [place] DIGITAL SCREEN SELF REFERRAL W OR WO CAD BILATERALon 12-16-2020 [facility] [place] DIGITAL SCREEN SELF REFERRAL W OR WO CAD BILATERAL EXAMINATION: SCREENING DIGITAL BILATERAL MAMMOGRAM WITH TOMOSYNTHESIS, 12/08/2020 TECHNIQUE: Screening mammography of the bilateral breasts was performed with tomosynthesis. 2D standard and 3D tomosynthesis combination imaging performed through both breasts in the MLO and CC projection. Computer aided detection was utilized in the interpretation of this exam. COMPARISON: 19 February 2018, 16 February 2016 HISTORY: Screening. FINDINGS: There are scattered areas of fibroglandular density. Tiny intramammary lymph node within the posterior slightly inferior right breast, present since 2016 but slightly more noticeable on current examination. No new or concerning masses, suspicious calcifications, foci of architectural distortion or significant interval changes are detected. IMPRESSION: No mammographic evidence of malignancy. BIRADS: BIRADS - CATEGORY 2 Benign Findings. Normal interval follow-up is recommended in 12 months. OVERALL ASSESSMENT - BENIGN A letter of notification will be sent to the patient regarding the results. [employer] recommends annual mammograms for women 40 years and older. Interpreted by: Uvaldo Read Signed by: Uvaldo Read 12/16/20 Final result Normal [facility] Vital Signs Date Time Vital Sign Value Performing Clinician Facility 02-14-2023 09:56-0500 Inhaled oxygen flow rate 1 L/min MD Shaikh Thompson Work Phone: [facility] [place] 02-14-2023 08:00-0500 Body temperature 97.7 [degF] MD Shaikh Thompson Work Phone: [facility] [place] 02-14-2023 08:00-0500 Diastolic blood pressure 69 mm[Hg] MD Shaikh Thompson Work Phone: [facility] [place] 02-14-2023 08:00-0500 Heart rate 78 /min MD Shaikh Thompson Work Phone: [facility] [place] 02-14-2023 08:00-0500 Respiratory rate 20 /min MD Shaikh Thompson Work Phone: [facility] [place] 02-14-2023 08:00-0500 SaO2% (BldA) [Mass fraction] 95 % MD Shaikh Thompson Work Phone: [facility] [place] 02-14-2023 08:00-0500 Systolic blood pressure 118 mm[Hg] MD Shaikh Thompson Work Phone: [facility] [place] 02-14-2023 05:51-0500 Body weight 69.9 kg MD Shaikh Thompson Work Phone: [facility] [place] 02-13-2023 12:53-0500 Body height 157.48 cm MD Shaikh Thompson Work Phone: [facility] [place] 02-10-2023 17:00-0500 Heart rate 85 /min [facility] 02-10-2023 16:38-0500 Diastolic blood pressure 80 mm[Hg] [facility] 02-10-2023 16:38-0500 Heart rate 80 /min [facility] 02-10-2023 16:38-0500 Mean blood pressure 99 mm[Hg] [facility] 02-10-2023 16:38-0500 Respiratory rate 18 /min [facility] 02-10-2023 16:38-0500 SaO2% (BldA) [Mass fraction] 95 % [facility] 02-10-2023 16:38-0500 Systolic blood pressure 138 mm[Hg] [facility] 02-10-2023 15:40-0500 Diastolic blood pressure 92 mm[Hg] [facility] 02-10-2023 15:40-0500 Heart rate 90 /min [facility] 02-10-2023 15:40-0500 Mean blood pressure 105 mm[Hg] [facility] 02-10-2023 15:40-0500 Respiratory rate 20 /min [facility] 02-10-2023 15:40-0500 SaO2% (BldA) [Mass fraction] 94 % [facility] 02-10-2023 15:40-0500 Systolic blood pressure 132 mm[Hg] [facility] 02-10-2023 14:42-0500 Body temperature 98.24 [degF] [facility] 02-10-2023 14:42-0500 Heart rate 93 /min [facility] 02-10-2023 14:42-0500 Respiratory rate 24 /min [facility] 02-10-2023 14:00-0500 Blood Pressure Location Jaxson Johnson [facility] 02-10-2023 14:00-0500 Body temperature 96.8 [degF] Jaxson Johnson [facility] 02-10-2023 14:00-0500 Diastolic blood pressure 90 mm[Hg] Jaxson Johnson [facility] 02-10-2023 14:00-0500 Heart rate 88 /min Jaxson Zunigaons [facility] 02-10-2023 14:00-0500 SaO2% (BldA) [Mass fraction] 92 % Jaxson Johnson [facility] 02-10-2023 14:00-0500 Systolic blood pressure 140 mm[Hg] Jaxson Johnson [facility] 10-15-2022 17:36-0400 Blood Pressure Location Damion Robledopsey [facility] 10-15-2022 17:36-0400 Body temperature 97.34 [degF] Damion Robledopsey [facility] 10-15-2022 17:36-0400 Diastolic blood pressure 76 mm[Hg] Damion De La Cruzey [facility] 10-15-2022 17:36-0400 Heart rate 60 /min Damion Ham [facility] 10-15-2022 17:36-0400 SaO2% (BldA) [Mass fraction] 96 % Damion Ham [facility] 10-15-2022 17:36-0400 Systolic blood pressure 122 mm[Hg] Damion Ham [facility] 10-09-2022 14:24-0400 Body height 157.5 cm Gurmeet Ojeda MD Work Phone: [facility] 10-09-2022 14:24-0400 Body temperature 97.5 [degF] Gurmeet Ojeda MD Work Phone: [facility] 10-09-2022 14:24-0400 Body weight 71.26 kg Gurmeet Ojeda MD Work Phone: [facility] 10-09-2022 14:24-0400 Diastolic blood pressure 60 mm[Hg] Gurmeet Ojeda MD Work Phone: [facility] 10-09-2022 14:24-0400 Heart rate 60 /min Gurmeet Ojeda MD Work Phone: [facility] 10-09-2022 14:24-0400 Systolic blood pressure 91 mm[Hg] Gurmeet Ojeda MD Work Phone: [facility] 08-09-2022 14:56-0400 Body height 157.5 cm Gurmeet Ojeda MD Work Phone: [facility] 08-09-2022 14:56-0400 Body temperature 97.7 [degF] Gurmeet Ojeda MD Work Phone: [facility] 08-09-2022 14:56-0400 Body weight 72.53 kg Gurmeet Ojeda MD Work Phone: [facility] 08-09-2022 14:56-0400 Diastolic blood pressure 64 mm[Hg] Gurmeet Ojeda MD Work Phone: [facility] 08-09-2022 14:56-0400 Heart rate 65 /min Gurmeet Ojeda MD Work Phone: [facility] 08-09-2022 14:56-0400 Systolic blood pressure 98 mm[Hg] Gurmeet Ojeda MD Work Phone: [facility] 06-14-2022 12:57-0400 Blood Pressure Location Ayala SALAM [facility] 06-14-2022 12:57-0400 Diastolic blood pressure 74 mm[Hg] Ayala SALAM [facility] 06-14-2022 12:57-0400 Heart rate 80 /min Ayala SALAM [facility] 06-14-2022 12:57-0400 Respiratory rate 16 /min Ayala SALAM [facility] 06-14-2022 12:57-0400 Systolic blood pressure 118 mm[Hg] Ayala SALAM [facility] 06-06-2022 10:13-0400 Blood Pressure Location TRUDY NGUYỄN [facility] 06-06-2022 10:13-0400 Diastolic blood pressure 88 mm[Hg] TRUDY NGUYỄN [facility] 06-06-2022 10:13-0400 Heart rate 74 /min TRUDY NGUYỄN [facility] 06-06-2022 10:13-0400 Systolic blood pressure 144 mm[Hg] TRUDY NGUYỄN [facility] 05-23-2022 10:41-0400 Blood Pressure Location TRUDY NGUYNỄ [facility] 05-23-2022 10:41-0400 Diastolic blood pressure 85 mm[Hg] TRUDY NGUYỄN [facility] 05-23-2022 10:41-0400 Heart rate 72 /min TRUDY NGUYỄN [facility] 05-23-2022 10:41-0400 Systolic blood pressure 127 mm[Hg] TRUDY NGUYỄN [facility] 04-11-2022 11:01-0500 Blood Pressure Location TRUDY NGUYỄN [facility] 04-11-2022 11:01-0500 Diastolic blood pressure 88 mm[Hg] TRUDY NGUYỄN [facility] 04-11-2022 11:01-0500 Heart rate 71 /min TRUDY KNOTT [facility] 04-11-2022 11:01-0500 Systolic blood pressure 146 mm[Hg] TRUDY KNOTT [facility] 03-19-2022 16:35-0500 Body height 163.83 cm Padmini Sam Other [facility] [employer] Other 03-19-2022 16:35-0500 Body mass index (BMI) [Ratio] 27.37 kg/m2 Padmini Waynemond Other [employer] Other 03-19-2022 16:35-0500 Body temperature 98.9 [degF] Padmini Sam Other [employer] Other 03-19-2022 16:35-0500 Body weight 73.48 kg Padmini Waynemond Other [employer] Other 03-19-2022 16:35-0500 Respiratory rate 18 /min Padmini Waynemond Other [employer] Other 03-19-2022 16:35-0500 SaO2% (BldA) [Mass fraction] 96 % Padmini Cecy Other [employer] Other 03-13-2022 10:12-0500 Diastolic blood pressure 59 mm[Hg] MD Shaikh Thompson Work Phone: [facility] [place] 03-13-2022 10:12-0500 Heart rate 77 /min MD Shaikh Thompson Work Phone: [facility] [place] 03-13-2022 10:12-0500 Respiratory rate 18 /min MD Shaikh Thompson Work Phone: [facility] [place] 03-13-2022 10:12-0500 SaO2% (BldA) [Mass fraction] 98 % MD Shaikh Thompson Work Phone: [facility] [place] 03-13-2022 10:12-0500 Systolic blood pressure 93 mm[Hg] MD Shaikh Thompson Work Phone: [facility] [place] 03-13-2022 07:54-0500 Body height 162.56 cm MD Shaikh Thompson Work Phone: [facility] [place] 03-13-2022 07:54-0500 Body temperature 98 [degF] MD Shaikh Thompson Work Phone: [facility] [place] 03-13-2022 07:54-0500 Body weight 73.48 kg MD Shaikh Thompson Work Phone: [facility] [place] 03-12-2022 08:58-0500 Body height 160.02 cm Shaikh Donna Work Phone: [facility] DO Work Phone: 03-12-2022 08:58-0500 Body mass index (BMI) [Ratio] 28.7 kg/m2 Shaikh Donna Work Phone: [facility] DO Work Phone: 03-12-2022 08:58-0500 Body surface area Derived from formula 1.77 m2 Shaikh Donna Work Phone: [facility] [facility] DO Work Phone: 03-12-2022 08:58-0500 Body weight 73.48 kg Dunbar Fawwad Work Phone: [facility] [facility] DO Work Phone: 03-12-2022 08:58-0500 Diastolic blood pressure 78 mm[Hg] Shaikh Jabierwad Work Phone: [facility] DO Work Phone: 03-12-2022 08:58-0500 Heart rate 66 /min Shaikh Ernestod Work Phone: [facility] [facility] DO Work Phone: 03-12-2022 08:58-0500 Systolic blood pressure 110 mm[Hg] Shaikh Jabierwad Work Phone: [facility] DO Work Phone: 01-23-2022 12:00-0500 72 1 Shaikh Ernestod Work Phone: [facility] [place] Work Phone: Comment on above: [id number] 11-09-2021 13:26-0400 Body height 160.02 cm Shaikh Ernestod Work Phone: [facility] [address] DO Work Phone: 11-09-2021 13:26-0400 Body mass index (BMI) [Ratio] 27.83 kg/m2 Shaikh Jabierwad Work Phone: [facility] [facility] DO Work Phone: 11-09-2021 13:26-0400 Body surface area Derived from formula 1.75 m2 Shaikh Jabierwad Work Phone: [facility] [facility] DO Work Phone: 11-09-2021 13:26-0400 Body weight 71.27 kg Shaikh Jabierwad Work Phone: [facility] [address] DO Work Phone: 11-09-2021 13:26-0400 Diastolic blood pressure 82 mm[Hg] Shaikh Jabierwad Work Phone: [facility] DO Work Phone: 11-09-2021 13:26-0400 Heart rate 64 /min Shaikh Ernestod Work Phone: [facility] [facility] DO Work Phone: 11-09-2021 13:26-0400 Systolic blood pressure 128 mm[Hg] Shaikh Ernestod Work Phone: [facility] DO Work Phone: 09-18-2021 10:26-0400 Diastolic blood pressure 80 mm[Hg] Shaikh Jabierwad Work Phone: [facility] DO Work Phone: 09-18-2021 10:26-0400 Systolic blood pressure 178 mm[Hg] Shaikh Ernestod Work Phone: [facility] DO Work Phone: 09-18-2021 10:19-0400 Body height 162.56 cm Shaikh Ernestod Work Phone: [facility] DO Work Phone: 09-18-2021 10:19-0400 Body mass index (BMI) [Ratio] 26.09 kg/m2 Shaikh Jabierwad Work Phone: [facility] DO Work Phone: 09-18-2021 10:19-0400 Body surface area Derived from formula 1.74 m2 Shaikh Jabierwad Work Phone: [facility] DO Work Phone: 09-18-2021 10:19-0400 Body weight 68.95 kg Shaikh Ernestod Work Phone: [facility] DO Work Phone: 09-18-2021 10:19-0400 Diastolic blood pressure 80 mm[Hg] Shaikh Jabierwad Work Phone: [facility] DO Work Phone: 09-18-2021 10:19-0400 Heart rate 60 /min Shaikh Ernestod Work Phone: [facility] DO Work Phone: 09-18-2021 10:19-0400 Systolic blood pressure 180 mm[Hg] Shaikh Ernestod Work Phone: [facility] DO Work Phone: 08-23-2021 14:00-0400 Body temperature 98.9 [degF] Linn Missler Other [employer] Other 08-23-2021 14:00-0400 Body weight 66.13 kg Linn Missler Other [employer] Other 08-23-2021 14:00-0400 Diastolic blood pressure 87 mm[Hg] Linn Missler Other [employer] Other 08-23-2021 14:00-0400 Respiratory rate 18 /min Linn Missler Other [employer] Other 08-23-2021 14:00-0400 SaO2% (BldA) [Mass fraction] 96 % Linn Missler Other [employer] Other 08-23-2021 14:00-0400 Systolic blood pressure 137 mm[Hg] Linn Byrne Other [facility] [employer] Other 08-17-2021 12:00-0400 Diastolic blood pressure 94 mm[Hg] PHYSICIAN NO [facility] 08-17-2021 12:00-0400 Heart rate 78 /min PHYSICIAN NO [facility] 08-17-2021 12:00-0400 Respiratory rate 18 /min PHYSICIAN NO [facility] 08-17-2021 12:00-0400 SaO2% (BldA) [Mass fraction] 95 % PHYSICIAN NO [facility] 08-17-2021 12:00-0400 Systolic blood pressure 152 mm[Hg] PHYSICIAN NO [facility] 08-17-2021 08:00-0400 Body temperature 97.5 [degF] PHYSICIAN NO [facility] 08-17-2021 05:57-0400 Body weight 75.8 kg PHYSICIAN NO [facility] 08-17-2021 00:44-0400 Inhaled oxygen flow rate 2 L/min PHYSICIAN NO [facility] 08-16-2021 14:43-0400 Body height 162.56 cm PHYSICIAN NO [facility] 08-16-2021 14:43-0400 Body mass index (BMI) [Ratio] 25.6 kg/m2 PHYSICIAN NO [facility] Encounters Encounter Date Encounter Type Care Provider Facility Start: 02-12-2023 End: 02-14-2023 Evaluation and management of inpatient Jacques East Facility:[facility] [place] Start: 02-12-2023 End: 02-14-2023 Evaluation and management of inpatient MD Shaikh Thompson Work Phone: [facility] Work Phone: Start: 02-10-2023 End: 02-10-2023 Emergency department patient visit Gabby De Oliveira Facility:[facility] Start: 02-10-2023 End: 02-11-2023 ambulatory Jaxson Johnson Facility:[facility] Start: 02-10-2023 End: 02-10-2023 Lab Drop off Jaxson Johnson [facility] Start: 02-10-2023 End: 02-10-2023 Emergency department patient visit Gabby De Oliveira [facility] Start: 02-10-2023 End: 02-10-2023 Patient encounter procedure Jaxson Johnson [facility] Start: 01-30-2023 End: 01-31-2023 ambulatory TRUDY KNOTT Facility:[facility] Start: 01-30-2023 End: 01-30-2023 Patient encounter procedure TRUDY KNOTT [facility] Start: 10-29-2022 Orders Only Debra naik MD Work Phone: [facility] Comment on above: Stage 3 chronic kidn ey disease, unspecified whether stage 3a or 3b CKD (HCC) Start: 10-26-2022 Telephone encounter Debra sotomayor MD Work Phone: [facility] Comment on above: Patient Question Start: 10-25-2022 Telephone encounter Debra sotomayor MD Work Phone: [facility] Comment on above: Patient Question Start: 10-15-2022 End: 10-16-2022 ambulatory DUNBAR DONNA Facility:[facility] Start: 10-15-2022 End: 10-15-2022 Lab Drop off Damion Cheek [facility] Start: 10-15-2022 End: 10-15-2022 Patient encounter procedure Damion Cheek [facility] Start: 10-15-2022 Rx Renewal Shaikh Donna Work Phone: [facility] [facility] DO Work Phone: Start: 10-09-2022 End: 10-10-2022 ambulatory Rosie Harris DO Work Phone: [facility] Start: 10-09-2022 End: 10-09-2022 Patient encounter procedure Gurmeet Ojeda MD Work Phone: [facility] Comment on above: Stage 3 chronic kidn ey disease, unspecified whether stage 3a or 3b CKD (HCC) (Primary Dx); Tobacco abuse; Hypertension, renal disease; Mixed hyperlipidemia; Atrophic kidney, acquired Start: 09-03-2022 End: 09-04-2022 ambulatory Bj [place] Facility:[facility] Start: 08-23-2022 End: 08-24-2022 ambulatory DEBRA FISHMAN Facility:[facility] Start: 08-09-2022 End: 08-09-2022 Patient encounter procedure Gurmeet Ojeda MD Work Phone: [facility] Comment on above: Stage 3b chronic kid domingo disease (HCC) (Primary Dx); Hypertension, unspecified type; Orthostatic hypotension; Alkalosis; Hypercholesteremia Start: 08-09-2022 End: 08-10-2022 ambulatory Debra Fishman MD Work Phone: [facility] Start: 08-01-2022 ambulatory TRUDY KNOTT Facili ty:[facility] Start: 07-11-2022 ambulatory SHAIKH DONNA Facility: [facility] Start: 06-27-2022 ambulatory TRUDY KNOTT Facili ty:[facility] Start: 06-19-2022 ambulatory SHAIKH Enrique THOMPSON Facilit y:[facility] Start: 06-18-2022 ambulatory SHAIKH DONNA Facility: [facility] Start: 06-14-2022 End: 06-15-2022 ambulatory Jamie BILLS Facility:[facility] Start: 06-14-2022 End: 06-14-2022 Patient encounter procedure Jamie BILLS [facility] Start: 06-12-2022 End: 06-13-2022 ambulatory SHAIKH Enrique OROZCOD Facility:[facility] Start: 06-06-2022 End: 06-07-2022 ambulatory TRUDY Rupal KNOTT Facility:[facility] Start: 06-06-2022 End: 06-06-2022 Patient encounter procedure TRUDY Rupal NGUYỄN [facility] Start: 05-30-2022 End: 05-31-2022 ambulatory TRUDY E NGUYỄN Facility:[facility] Start: 05-23-2022 End: 05-24-2022 ambulatory TRUDY Rupal KNOTT Facility:[facility] Start: 05-23-2022 End: 05-23-2022 Patient encounter procedure TRUDY Rupal KNOTT [facility] Start: 04-30-2022 End: 05-01-2022 ambulatory SHAIKH Enrique OROZCOD Facility:[facility] Start: 04-11-2022 End: 04-12-2022 ambulatory TRUDY Rupal NGUYỄN Facility:[facility] Start: 04-11-2022 End: 04-11-2022 Patient encounter procedure TRUDY Rupal NGUYỄN [facility] Joe Start: 04-05-2022 End: 04-05-2022 ambulatory Kevyn Deras Other [employer] Other Start: 04-05-2022 Telephone encounter Kevyn [facility] Start: 03-27-2022 End: 03-28-[address] MARQUEZ BEAL Facility:[facility] Start: 03-19-2022 End: 03-19-2022 ambulatory Padmini Sam Other [employer] Other Start: 03-19-2022 Office outpatient vi sit 15 minutes Padmini Sam [facility] Start: 03-13-2022 End: 03-13-2022 ambulatory Kevyn Chauhanack Facility:[facility] [place] Start: 03-13-2022 End: 03-13-2022 Admission to same day surgery center MD Shaikh Thompson Work Phone: [facility] Work Phone: Start: 03-13-2022 End: 03-13-2022 ambulatory MD Shaikh Thompson Work Phone: [facility] Work Phone: Start: 03-12-2022 Office outpatient vi sit 25 minutes Shaikh Donna Work Phone: [facility] [address] DO Work Phone: Start: 02-28-2022 ambulatory SHAIKH DONNA Facility: [facility] [place] Start: 02-26-2022 End: 02-26-[address] XAVIER STAFFORD . Facility:[facility] Start: 02-19-2022 End: 02-20-2022 ambulatory SHAIKH Enrique THOMPSON Facility:[facility] Start: 01-29-2022 Chart Update Shaikh Donna Work Phone: [facility] [address] DO Work Phone: Start: 01-23-[address] [id number] Start: 01-23-2022 Patient encounter procedure Shaikh Donna Work Phone: [facility] [facility] DO Work Phone: Start: 11-16-2021 Rx Renewal Shaikh Donna Work Phone: [facility] [facility] DO Work Phone: Start: 11-09-2021 ambulatory Marquez Beal II Facility: Start: 10-30-2021 End: 10-31-2021 ambulatory SHAIKH Enrique THOMPSON Facility:[facility] Start: 10-24-2021 Chart Update Shaikh Donna Work Phone: [facility] [facility] DO Work Phone: Start: 10-17-[address] Marquez Beal II Facility:[id number] Start: 09-18-2021 ambulatory Marquez Beal II Facility: Start: 09-18-2021 Office outpatient vi sit 25 minutes Shaikh Donna Work Phone: [facility] [facility] DO Work Phone: Start: 09-18-2021 End: 09-18-2021 Patient encounter procedure PHYSICIAN NO [facility] [place] Start: 09-18-2021 ambulatory Marquez Beal II Faci lity:[id number] Start: 08-23-2021 ([facility] CHUCK) [facility] Transition of Care Linn Byrne [facility] Start: 08-23-2021 End: 08-23-2021 ambulatory Linn Byrne Other [facility] [employer] Other Start: 08-23-2021 End: 08-23-2021 Patient encounter procedure PHYSICIAN NO [facility] Start: 08-17-2021 End: 08-17-2021 Patient encounter procedure [facility] [facility] Start: 08-17-2021 ambulatory Marquez Beal II Facility:[id number] Start: 08-16-[address] Jaycob Newman Facility:[id number] Start: 08-15-2021 ambulatory Marquez Beal II Facility:[id number] Start: 08-14-2021 ambulatory Marquez Beal II Facility:[id number] Start: 08-13-2021 End: 08-17-2021 Evaluation and management of inpatient PHYSICIAN NO FAMILY [facility] [place] [facility] Start: 08-13-2021 End: 08-13-2021 ambulatory Marquez Beal II Facility:[id number] Start: 12-08-2020 End: 12-11-2020 ambulatory ALEXANDR Church [facility] Start: 12-08-2020 End: 12-10-2020 Subsequent hospital visit by physician [facility] Mammo [facility] Mammography Comment on above: Encounter for screen ing mammogram for malignant neoplasm of breast Procedures Date Procedure Procedure Detail Performing Clinician Start: 02-12-2023 Investigation of tra nsfusion reaction MD Shaikh Thompson Work Phone: Start: 02-12-2023 Plain chest X-ray MD Sly Thompson Work Phone: Start: 10-09-2022 Urnls dip stick/tabl et reagent auto microscopy Bulk Order Provider Start: 08-09-2022 Urnls dip stick/tabl et rgnt auto w/o microscopy Bulk Order Provider Start: 03-13-2022 Colonoscopy MD Shaikh Thompson Work Phone: Start: 08-16-2021 OR KELIVN W/IV Sedation PH YSICIAN NO FAMILY Start: 08-15-2021 Magnetic resonance angiography of head without contrast PHYSICIAN NO FAMILY Start: 08-15-2021 Plain chest X-ray PHYSI TAJ NO FAMILY Start: 08-15-2021 Doppler ultrasonogra phy of bilateral carotid arteries PHYSICIAN NO FAMILY Start: 08-14-2021 CT of head without contrast PHYSICIAN NO FAMILY Start: 08-14-2021 Blood culture for ba cteria, including anaerobic screen PHYSICIAN NO FAMILY Start: 08-13-2021 Urine culture PHYSICIAN NO FAMILY Start: 12-08-2020 Mammography Gurmeet Ojeda MD Work Phone: Start: 03-27-2016 Colonoscopy Gurmeet Ojeda MD Work Phone: Blood culture for ba cteria, including anaerobic screen PHYSICIAN NO FAMILY Destructive procedure Shaikh Donna Work Phone: None (qualifier value) VERONICA KNOTT Total colonoscopy Shaikh Jabier austin Work Phone: Comment on above: 2017; Urine culture PHYSICIAN AXEL CHRISTIE Plan of Treatment Date Care Activity Detail Author Start: 10-10-2023 End: 12-10-2023 Renal function 2000 panel - Serum or Plasma RENAL FUNCTION PANEL Lab Routine Stage 3 chronic kidney disease, unspecified whether stage 3a or 3b CKD (HCC) Expected: 10/10/2023, Expires: 12/10/2023 [facility] Work Phone: Comment on above: Expected: 10/10/2023 , Expires: 12/10/2023 Start: 08-24-2023 SERUM CREATININE SERUM CREATININE Cl [facility] Start: 03-12-2023 FUV, Provider: Marquez Beal, Status: Pen, Time: 11:00 AM FUV, Provider: Marquez Beal, Status: Pen, Time: 11:00 AM -[facility] 250 DO Work Phone: Start: 02-14-2023 [facility] Start: 02-12-2023 Microbial culture of sputum [facility] Start: 02-12-2023 Aerobic microbial culture Aerobic Cu lture [facility] Start: 02-12-2023 Hospital admission [facility] Start: 02-12-2023 [facility] Start: 10-19-2022 Influenza vaccination C [facility] Start: 08-09-2022 End: 10-09-2022 25-hydroxyvitamin D3 [Mass/volume] in Serum or Plasma VITAMIN D 25 HYDROXY Lab Routine Stage 3b chronic kidney disease (HCC) Expected: 08/09/2022, Expires: 10/09/2022 [facility] Work Phone: Comment on above: Expected: 08/09/2022 , Expires: 10/09/2022 Start: 08-09-2022 End: 10-09-2022 MONOCLONAL PROTEIN, SERUM (BLOOD) MONOCLONAL PROTEIN, SERUM (BLOOD) Lab Routine Stage 3b chronic kidney disease (HCC) Expected: 08/09/2022, Expires: 10/09/2022 [facility] Work Phone: Comment on above: Expected: 08/09/2022 , Expires: 10/09/2022 Start: 08-09-2022 End: 10-09-2022 Renal function 2000 panel - Serum or Plasma RENAL FUNCTION PANEL Lab Routine Stage 3b chronic kidney disease (HCC) Expected: 08/09/2022, Expires: 10/09/2022 [facility] Work Phone: Comment on above: Expected: 08/09/2022 , Expires: 10/09/2022 Start: 03-13-2022 [facility] Start: 03-12-2022 FUV, Provider: Marquez Beal, Status: Pen, Time: 8:30 AM FUV, Provider: Marquez Beal, Status: Pen, Time: 8:30 AM -[facility] 250 DO Work Phone: Start: 02-18-2022 DEPRESSION ASSESSMENT DEPRESSION ASS ESSMENT [facility] Start: 12-21-2021 FUV, Provider: Marquez Beal, Status: Pen, Time: 12:50 PM FUV, Provider: Marquez Beal, Status: Pen, Time: 12:50 PM -[facility] 600 DO Work Phone: Start: 12-08-2021 Mammography MAMMOGRAM [facility] Start: 11-22-2021 STRESS NUC, Provider : TRENA HHVI NUCLEAR 01,[id number], Status: Pen, Time: 12:00 PM STRESS NUC, Provider: TRENA HHVI NUCLEAR 01,[id number], Status: Pen, Time: 12:00 PM [facility] 600 DO Work Phone: Start: 11-22-2021 NURSEVST, Provider: KAYLEN ANAND TELECOMMUNICATIONS MANAGER 1,[id number], Status: Pen, Time: 10:30 AM NURSEVST, Provider: KAYLEN ANAND TELECOMMUNICATIONS MANAGER 1,[id number], Status: Pen, Time: 10:30 AM [facility] 600 DO Work Phone: Start: 11-09-2021 FUV, Provider: Marquez Beal, Status: Pen, Time: 1:10 PM FUV, Provider: Marquez Beal, Status: Pen, Time: 1:10 PM [facility] Work Phone: Start: 10-17-2021 STRESS IVAN, Provider : TRENA HHVI NUCLEAR 01,[id number], Status: Pen, Time: 2:00 PM STRESS IVAN, Provider: TRENA HHVI NUCLEAR 01,[id number], Status: Pen, Time: 2:00 PM [facility] 250 DO Work Phone: Start: 08-17-2021 [facility] Work Phone: Start: 08-14-2021 Referral to neurologist [facility] Work Phone: Start: 08-14-2021 Blood culture for bacteria, including anaerobic screen Blood Culture [facility] Start: 08-14-2021 [facility] Work Phone: Start: 08-13-2021 Ultrasonography of R ight and Left Heart, Transesophageal Ultrasonography of Right and Left Heart, Transesophageal [facility] Start: 08-13-2021 Hospital admission [facility] Work Phone: Start: 08-13-2021 Referral to beauty therapist [facility] Work Phone: Start: 03-27-2021 Colonoscopy COLONOSCOPY [facility] Start: 03-27-2021 COLORECTAL CANCER SCREENING COLORECTAL CANCER SCREENING [facility] Start: 03-11-2021 COVID-19 VACCINE (4 - Booster for Pfizer series) COVID-19 VACCINE (4 - Booster for Pfizer series) [facility] Start: 03-11-2021 COVID-19 VACCINE (4 - Pfizer series) COVID-19 VACCINE (4 - Pfizer series) [facility] Start: 02-07-2021 HPV TESTING HPV TESTING [facility] Start: 02-07-2021 PAP TESTING PAP TESTING [facility] Start: 10-19-2020 Influenza vaccination Flu vaccine (# 1) [employer] Work Phone: Start: 03-14-2017 HEMOGLOBIN/HEMATOCRIT HEMOGLOBIN/HEM ATOCRIT [facility] Start: 2012 Screening for malign ant neoplasm of breast Breast cancer screen [employer] Phone: Start: 2012 Shingles Vaccine (1 of 2) Herring gles Vaccine (1 of 2) [employer] Phone: Start: 2012 SHINGRIX VACCINE (1 of 2) HERRING GRIX VACCINE (1 of 2) [facility] Start: 05-12-2007 COLOGUARD (FIT-DNA) COLOGUARD (FIT-D NA) [facility] Start: 05-12-[address] COLONOGRAPHY [facility] Start: 05-12-2007 DIABETES SCREEN DIABETES SCREEN [facility] Start: 05-12-2007 FECAL OCCULT BLOOD FECAL OCCULT BLOO D [facility] Start: 05-12-2007 LIPID SCREEN LIPID SCREEN [facility] Start: 05-12-2007 Screening for malign ant neoplasm of colon Colon cancer screen colonoscopy [employer] Phone: Start: 05-12-2007 SIGMOIDOSCOPY SIGMOIDOSCOPY [facility] Start: 2002 Lipid panel Lipid screen [facility] [email or web address] Phone: Start: 1992 Screening for malign ant neoplasm of cervix [employer] Phone: Start: 05-12-1983 Screening for malign ant neoplasm of cervix Pap smear [employer] Phone: Start: 1981 DTaP/Tdap/Td vaccine (1 - Tdap) DTaP/Tdap/Td vaccine (1 - Tdap) [employer] Phone: Start: 1981 Urine microalbumin profile DTAP,TDAP,TD (1 - Tdap) [facility] Start: 1980 ANNUAL PCP TEAM MICRO COMPUTER SPECIALIST ZEFERINO DISEASE VISIT ANNUAL PCP TEAM CHRONIC DISEASE VISIT [facility] Start: 1980 HEPATITIS C SCREENING HEPATITIS C SC REEMARCIO [facility] Start: 1980 HIV SCREENING HIV SCREENING [facility] Start: 1977 HIV screening HIV screen [facility] Work Phone: Start: 1962 Hepatitis C screening Hepatitis C sc reen [facility] Work Phone: Activated protein C resistance assay [facility] Work Phone: Antithrombin [Units/volume] in Platelet poor plasma by Chromogenic method [facility] Work Phone: aPTT.lupus sensitive (LA screen) [facility] Work Phone: aPTT.lupus sensitive W excess phospholipid actual/Normal (normalized LA confirm) [facility] Work Phone: aPTT.lupus sensitive/aPTT.lupus sensitive W excess phospholipid (screen to confirm ra [facility] Work Phone: Beta 2 glycoprotein 1 IgG Ab [Units/volume] in Serum [facility] Work Phone: Beta 2 glycoprotein 1 IgM Ab [Units/volume] in Serum [facility] Work Phone: Cardiolipin IgG Ab [Units/volume] in Serum by Immunoassay [facility] Work Phone: Cardiolipin IgM Ab [Units/volume] in Serum by Immunoassay [facility] Work Phone: dRVVT (LA screen) [facility] Work Phone: F2 gene mutations fo und [Identifier] in Blood or Tissue by Molecular genetics method [employer] [facility] Work Phone: Homocysteine [Moles/volume] in Serum or Plasma [facility] Work Phone: Lupus anticoagulant [Interpretation] in Platelet poor plasma [facility] Work Phone: End: 12-08-2020 BERTA KYARA DIGITAL SCREEN SELF REFERRAL W OR WO CAD BILATERAL BERTA KYARA DIGITAL SCREEN SELF REFERRAL W OR WO CAD BILATERAL Imaging Routine Encounter for screening mammogram for malignant neoplasm of breast 1 Occurrences starting 12/08/2020 until 12/08/2020 [facility] Work Phone: Comment on above: 1 Occurrences starti ng 12/08/2020 until 12/08/2020 BERTA KYARA DIGITAL SCR EEN SELF REFERRAL W OR WO CAD BILATERAL BERTA KYARA DIGITAL SCREEN SELF REFERRAL W OR WO CAD BILATERAL Imaging Routine Encounter for screening mammogram for malignant neoplasm of breast 12/08/2020 1:30 PM EDT [facility] Work Phone: Patient Education [facility] Work Phone: Patient referral [facility] Work Phone: Plasminogen assay [facility] Work Phone: Protein C actual/nor mal in Platelet poor plasma by Chromogenic method [facility] Work Phone: Protein S Free Ag [Units/volume] in Platelet poor plasma by Immunoassay [facility] Work Phone: Renin [Enzymatic activity/volume] in Plasma [facility] Work Phone: End: 09-08-2023 US KIDNEY/BLADDER US KIDNEY/BLADDER Radiology Routine Stage 3b chronic kidney disease (HCC) 1 Occurrences starting 08/09/2022 until 09/08/2023 [facility] Work Phone: Comment on above: 1 Occurrences starti ng 08/09/2022 until 09/08/2023 [facility] Immunizations Immunization Date Immunization Notes Care Provider Fa mandiety 01-14-2021 Pfizer-BioNTech COVI D-19 Vacc 30 MCG/0.3ML Intramuscular Suspension Shaikh Donna Work Phone: [facility] Joe Comment on above: Result Comment: 2022: [id number] 06-25-2020 Pfizer-BioNTech COVI D-19 Vacc 30 MCG/0.3ML Intramuscular Suspension Shaikh Donna Work Phone: [facility] Comment on above: Reason for Medicatio n: Prophylaxis 06-04-2020 Pfizer-BioNTech COVI D-19 Vacc 30 MCG/0.3ML Intramuscular Suspension Shaikh Jabiergeovanna Work Phone: [facility] Comment on above: Reason for Medicatio n: Prophylaxis Payers Date Payer Category Payer Medicaid [id number] 2021 Self-pay [id number] 2020 Private Health Insurance [id number] 1960 Unknown [id number] 2.16.8 40.1.863119.3.579.2.1068 1962 Unknown [id number] 2.16.8 40.1.602669.3.579.2.1068 1962 Unknown [id number] 2.16. 840.1.670262.3.579.2.356 1962 Unknown [id number] 2.16. 840.1.890850.3.579.2.356 1962 Unknown [id number] 2.16. 840.1.240833.3.579.2.356 1962 Unknown [id number] 2.16. 840.1.245880.3.579.2.356 1962 Unknown [id number] 2.16. 840.1.749547.3.579.2.356 1962 Unknown [id number] 2.16. 840.1.757431.3.579.2.356 1962 Unknown [id number] 2.16. 840.1.229179.3.579.2.356 1962 Unknown [id number] 2.16. 840.1.169940.3.579.2.356 1962 Unknown [id number] 2.16. 840.1.017786.3.579.2.356 1962 Unknown [id number] 2.16. 840.1.379253.3.579.2.356 1962 Unknown [id number] 2.16. 840.1.417059.3.579.2.356 1962 Unknown [id number] 2.16.84 0.1.204112.3.579.2.593 1962 Unknown [id number] 2.16.84 0.1.427298.3.579.2.593 1962 Unknown [id number] 2.16.84 0.1.176013.3.579.2.593 1962 Unknown [id number] 2.16.84 0.1.084945.3.579.2.593 1962 Unknown [id number] 2.16.84 0.1.264185.3.579.2.593 1962 Unknown [id number] 2.16.84 0.1.379824.3.579.2.593 1962 Unknown [id number] 2.16.84 0.1.215037.3.579.2.593 1962 Unknown [id number] 2.16.84 0.1.484792.3.579.2.593 1962 Unknown [id number] 2.16.8 40.1.805257.3.579.2.727 1962 Unknown [id number] 2.16.8 40.1.035877.3.579.2.727 1962 Unknown [id number] 2.16.8 40.1.647033.3.579.2.727 1962 Unknown [id number] 2.16.8 40.1.130911.3.579.2.727 1962 Unknown [id number] 2.16.8 40.1.228052.3.579.2.727 1962 Unknown [id number] 2.16.8 40.1.657565.3.579.2.727 1962 Unknown [id number] 2.16.8 40.1.803644.3.579.2.727 1962 Unknown [id number] 2.16.8 40.1.550668.3.579.2.727 1962 Unknown [id number] 2.16.8 40.1.604967.3.579.2.727 1962 Unknown [id number] 2.16.8 40.1.939947.3.579.2.727 1962 Unknown [id number] 2.16.8 40.1.343917.3.579.2.727 1962 Unknown [id number] 2.16.8 40.1.426310.3.579.2.727 1962 Unknown [id number] 2.16.8 40.1.143552.3.579.2.727 1962 Unknown [id number] 2.16.8 40.1.104903.3.579.2.727 1962 Unknown [id number] 2.16.8 40.1.065507.3.579.2.727 1959 Medicaid [id number] Unknown [facility] [id number] Unknown Unknown [id number] 2.16.8 40.1.990466.3.579.2.531 Unknown [id number] 2.16.8 40.1.300246.3.579.2.531 Social History Date Type Detail Facility Start: 12-08-2020 Tobacco smoking stat us MDIS Unknown if ever smoked [employer] Phone: Start: 1960 Sex Assigned At Not on file M [employer] Phone: Start: 08-16-2021 End: 08-09-2022 Tobacco smoking status MDIS Ex-smoker (finding) [facility] Start: 08-09-2022 End: 10-09-2022 History of tobacco use [facility] Start: 1960 Sex Assigned At Female F [facility] Start: 08-09-2022 End: 10-09-2022 Daily caffeine consumption Daily caffeine consumption [facility] 250 DO Work Phone: Comment on above: 1 CUP OF COFFEE; 2 CIGS DAILY; quit 2021; Start: 04-11-2022 End: 10-15-2022 Tobacco smoking status Heavy tobacco smoker (finding) [facility] Tobacco smoking status Never [facility] Start: 02-12-2023 End: 08-18-2017 History of tobacco use Current smoker [facility] End: 08-18-2017 History of tobacco use Cigarette Smoker [facility] Start: 08-09-2022 Tobacco use and exposure Smokeless tobacco non-user [facility] Start: 08-09-2022 Alcohol intake Current drinke r of alcohol (finding) [facility] Start: 10-09-2022 Alcohol intake Ex-drinker (finding) [facility] Start: 02-10-2023 Tobacco smoking status Light t obacco smoker (finding) [facility] Goals Date Patient Goal Desired Activity /State Functional Status Date Assessment Result Facility 02-14-2023 Functional status Patient at Baseline [facility] Work Phone: 02-10-2023 Functional Status N/A [facility] 10-15-2022 Functional Status N/A [facility] 06-14-2022 Functional Status N/A [facility] 06-06-2022 Functional Status N/A [facility] 05-23-2022 Functional Status N/A [facility] 04-11-2022 Functional Status N/A [facility] 08-17-2021 Functional status Patient at Baseline [facility] Work Phone: Mental Status Date Assessment Result Facility 02-14-2023 Cognitive function Cognitive Sta tus Patient at Baseline [facility] Work Phone: 08-17-2021 Cognitive function Cognitive Sta tus Patient at Baseline [facility] Work Phone: Clinical Notes 01-18-2010 to 02-14-2023 Note Date & Type Note Facility 02-14-2023 Discharge summary Note Date/Time February 14, 2023 12:53pm [facility] [address] [place] [address] Discharge Summary Signed Patient: Deysi Hernandez MR#: [id number] : 1960 Acct:[id number] Age/Sex: 62 / F Adm Date: 3 Loc: Room: [address] [place] [address]: Jacques East MD Copies to: MD Shaikh Donna Piña MD~ Providers Date of Discharge: 02/14/23 Discharging Provider: Jacques East Primary Care Provider: Shaikh Donna Discharge Diagnosis (1) Shortness of breath: (2) CKD (chronic kidney disease) stage 3, GFR 30-59 ml/min: (3) Hypertension: (4) Acute hypoxic respiratory failure: (5) Community acquired pneumonia: Final Diagnosis Final Discharge Diagnosis: Acute hypoxic respiratory failure secondary to community acquired pneumonia Possible acute COPD exacerbation (undiagnosed COPD) Tobacco use, chronic smoker, active smoker Elevated troponin likely demand ischemia due to physiological stress of hypoxia and infectious process and CKD, poor creatinine clearance Hypertension- controlled CKD stage 3b- stable for now Summary Hospital Course Hospital course: Patient is a 62 year old female with PMHx of CKD presented to [facility] with shortness of breath and was transferred to [facility] due to elevated troponins. Patient states she has had shortness of breath for a few days with associated cough with green sputum. She does not use home oxygen, but is currently on 2L nasal canula with a 95% O2 saturation. She states she was placed on cephalexin for UTI and respiratory coverage by the walk in clinic, but has not had much relief. Patient has history of CKD III with creatinine today 1.65. Patient follows with cardiology and nephrology regularly. She has an appointment scheduled with cardiology on February 28. Patient states she had echocardiogramand chemical stress test a year ago that were both normal. During hospital course, patient was started on bronchodilators scheduled, IV antibiotics for pneumonia as well as IV steroids along with treatment for suspected acute COPD exacerbation. She has not had any official testings with PFT for COPD, however she is chronic smoker for many years. Patient was gradually responding well to treatment with much improvement in her SOB, cough and sputum production. As of today, she remained afebrile, hemodynamically stable, clinically much better and feels a lot better compared to here status onadmission. Walk test was done and patient required 1 L of nasal cannula oxygen on exertion. Home oxygen was set up. Will transition to oral antibiotics, inhalers and nebulizers, oral steroids with taper to complete course of treatment. Patient was counseled heavily on smoking cessation. Discussed with patient at bedside, all questions answered, patient in agreement and comfortablewith discharge plan. Advised to follow up with her PCP for regular checks and toget referral to pulmonary clinic for PFT to be evaluation for COPD. Patient verbalized understanding to the plan and in agreement. Time spent discussing smoking cessation with patient: 3 to 10 minutes Condition Condition at Discharge: Stable Time Spent with Patient Time spent providing/coordinating discharge services (# min): 40 Diagnostic Studies Completed and Pending Studies Pending studies at discharge: 02/12/23 20:56 Sputum Culture Routine Preliminary micro results at discharge 02/12/23 20:56 Aerobic Culture - Preliminary Sputum - Expectorated Light Normal Respiratory Zoe 1 Day Labs on day of discharge: 02/14/23 07:16: PHA Creatinine Clear 40.59, Sodium 136, Potassium 5.4 H, Chloride 103, Carbon Dioxide 26.2, Anion Gap 12.2, BUN 33 H, Creatinine 1.35 H, Est GFR (CKD-EPI) 44.991, Glucose 136 H, Calcium 9.4 02/14/23 07:16: Corrected WBC 12.7 H, Uncorrected WBC Count 12.7 H, RBC 4.92, Hgb 15.1, Hct 44.5, MCV 90.4, MCH 30.6, MCHC 33.9, RDW 14.6, Plt Count 220, MPV 8.5, Neut % (Auto) 87.6, Lymph % (Auto) 7.6, [place] % (Auto) 4.7, Eos % (Auto) 0.0, Baso % (Auto) 0.1, Nucleat RBC Rel Count 0.0, Neut # (Auto) 11.1 H, Lymph #(Auto) 1.0, [place] # (Auto) 0.6, Eos # (Auto) 0.0, Baso # (Auto) 0.0 Exam Physical Exam Vital Signs: Temp Pulse Resp BP Pulse Ox O2 Del Method O2 Flow Rate 97.7 F 78 20 118/69 95 Room Air 1 02/14/23 08:00 02/14/23 08:00 02/14/23 08:00 02/14/23 08:00 02/14/23 08:00 02/14/23 08:37 02/14/23 09:56 Narrative: Const General: cooperative HEENT Normal oropharyngeal mucosa without any ulcers or exudates Eyes: Conjunctiva normal Pulmonary Auscultation: clear to auscultation , no crackles, scattered wheezes only on R side base. Cardiovascular Rate: normal rate Rhythm: regular rhythm Heart Sounds: S1 normal, S2 normal and no murmurs GI Inspection: non-distended Palpation: soft, not firm and nontender. No rigidity or rebound. Deferred Neuro General: alert, awake and oriented x3. No obvious new focal deficit Musculoskeletal: normal range of motion Extrem General: no cyanosis, no pedal edema Psych Appearance: appropriate affect. Grossly normal Discharge Plan Discharge Plan Patient Disposition: Home Activity: Ambulate as Tolerated Diet: Low-Sodium Additional Instructions: -Continue course of antibiotics as directed with cefdinir and doxycycline -Continue course of steroids as directed -Use albuterol rescue inhaler as needed for wheezes/shortness of breath also -Cough medicine as needed -Follow-up with your PCP for regular checks and referral to pulmonary clinic forpulmonary function test- concerns for COPD -Quitting smoking -Continue oxygen at 1L NC with exertion Instructions: Chronic Obstructive Pulmonary Disease (COPD) (DC), Pneumonia, Adult (DC), Albuterol, Cefdinir, Doxycycline, Prednisone, Breathing Exercises, Quitting Smoking ED Prescriptions: New albuterol sulfate 2.5 mg /3 mL (0.083 %) Solution For Nebulization 2.5 mg inhalation Q3H PRN (Reason: Cough/Wheeze) Qty: 75 0RF docusate sodium 100 mg Capsule 100 mg PO BID PRN (Reason: Constipation) Qty: 14 0RF guaifenesin [Mucinex] 600 mg Tablet Extended Release 12hr 1,200 mg PO BID PRN (Reason: congestion) Qty: 14 0RF cefdinir 300 mg capsule 300 mg PO BID 5 Days Qty: 10 0RF doxycycline hyclate 100 mg capsule 100 mg PO BID 5 Days Qty: 10 0RF prednisone 10 mg tablet 10 mg PO DIRECTED Qty: 21 0RF Rx Instructions: see taper instructions Take 40 mg (4 tabs) for 3 days then Take 20 mg ( 2 tabs) for 3 days then Take 10 mg ( 1 tab) for 3 days to finish albuterol sulfate 90 mcg/actuation aero powdr breath act w/sensor 1 inh inhalation Q6H PRN (Reason: shortness of breath) Qty: 1 0RF Continued atorvastatin 40 mg Tablet 40 mg PO QPM 30 Days Qty: 30 1RF aspirin 81 mg Tablet,Delayed Release (Dr/Ec) 81 mg PO DAILY 30 Days Qty: 30 11RF metoprolol succinate 100 mg Tablet Extended Release 24 Hr 100 mg PO DAILY 30 Days Qty: 30 12RF lisinopril 20 mg tablet 20 mg PO DAILY Other Ambulatory Orders: DME Home Medical Equipment (Routine) Timeframe: 20230214 Location: Determined by Patient Ordered By: Jacques East DME Home Medical Equipment (Routine) Timeframe: 20230214 Location: Determined by Patient Ordered By: Jacques East Follow Up: Shaikh Thompson MD [Primary Care Provider] - (The office is aware of your hospital stay and need for follow up, the office will call you to schedule. Please call the office if you have not heard from them by the next business day.) Documented By: Jacques East MD 02/14/23 12 47 Signed By: <Electronically signed by Jacques East MD> 02/14/23 9921 [facility] Work Phone: 1(857) 925-314812-28-2023 Progress note Author Jacques East [facility] February 14, 2023 12:45pm Note Date/Time February 14, 2023 7:29am [facility] [address] [place] [address] Hospitalist Progress Note Signed Patient: Deysi Hernandez MR#: [id number] : 1960 Acct:[id number] Age/Sex: 62 / F Adm Date: 3 Loc: Room: [address] [place] [address] Type: ADM IN Attending Dr: Jacques East MD Copies to: ~ Date of Service: 02/14/2023 Subjective Subjective Narrative: Patient was evaluated at bedside this morning. Remained afebrile, hemodynamically stable, blood pressure 118/69. She reports improvement in her cough and sputum production which are much less today. Denies any nausea, vomiting, she is resting comfortably on room air with O2 saturation of 95%. On ambulation she required 1L O2. Appears comfortable and improving overall. Exam Physical Exam Vital Signs: Temp Pulse Resp BP Pulse Ox O2 Del Method O2 Flow Rate 97.5 F L 59 L 20 124/80 93 L Nasal Cannula 1.5 02/14/23 04:24 02/14/23 04:24 02/14/23 04:24 02/14/23 04:24 02/14/23 04:24 02/14/23 04:24 02/14/23 04:24 Const General: cooperative, comfortable and no acute distress Nutritional Appearance: well nourished Orientation: alert, awake and oriented x3 HEENT Head: normal to inspection, normocephalic and atraumatic Nose: external nose normal Eyes General: appearance normal, both eyes and all related structures Neck Neck: normal visual inspection Chest Chest palpation & inspection: normal inspection of the chest Resp Effort & Inspection: normal respiratory effort, able to speak in complete sentences, symmetric chest movement and cough Quality of cough: productive Auscultation: bronchial breath sounds, rales (Present in left lower lung lobe) on the left and wheezes expiratory wheezes (mostly on RLL) Cardio Jugular venous pressure: no JVD Rate: regular rate and tachycardic Rhythm: regular rhythm Heart Sounds: S1 normal and S2 normal GI Inspection: normal to inspection Palpation: soft Skin Lesions: lesion noted (Several flea bites on bilateral lower extremities) Rashes: no rashes Neuro General: patient alert, patient awake and patient oriented x3 Cognition: normal cognition Speech: speech normal Psych Appearance: grossly normal and well kempt Affect: normal affect Speech and Movement: speech and movement normal Attitude: cooperative Thought Process: normal Thought Content: normal Insight: insight good Judgment: judgment good Objective Lab Results 02/13/23 06:10 02/13/23 06:10 Meds Allergies and Active Meds Allergies No Known Allergies Allergy (Verified 08/13/21 10:38) Active Meds: Active Medications Generic Name Dose Route Start Last Admin Trade Name Freq PRN Reason Stop Dose Admin Acetaminophen 650 mg 02/12/23 08:10 02/14/23 04:21 Acetaminophen 325 Mg Tablet PO 02/12/24 08:09 650 mg Q6HR PRN Administration Pain Scale 1 - 3 or fever Albuterol 2.5 mg 02/12/23 08:10 Albuterol Neb 2.5 Mg/3 Ml Vial.Neb INHALATION 02/12/24 08:09 Q3H PRN Cough/Wheeze Albuterol/Ipratropium 3 ml 02/12/23 12:00 02/13/23 20:16 Ipratropium/Albuterol 0.5-3 Mg 3 Ml Ampul.Neb INHALATION 02/12/24 11:59 3 ml QID.RESP ESTEBAN Administration Aspirin 81 mg 02/12/23 09:00 02/13/23 08:00 Aspirin 81 Mg Tablet.Dr PO 02/12/24 08:59 81 mg DAILY ESTEBAN Administration Atorvastatin Calcium 40 mg 02/12/23 21:00 02/13/23 21:45 Atorvastatin 40 Mg Tablet PO 02/12/24 20:59 40 mg QPM ESTEBAN Administration Docusate Sodium 100 mg 02/12/23 08:10 Docusate 100 Mg Capsule PO 02/12/24 08:09 BID PRN Constipation Guaifenesin 1,200 mg 02/12/23 09:00 02/13/23 21:46 Guaifenesin 600 Mg Tab.Er.12h PO 02/12/24 08:59 1,200 mg BID ESTEBAN Administration Guaifenesin 20 ml 02/12/23 08:10 Guaifenesin Syrup 10 Ml Udc PO 02/12/24 08:09 QID PRN Cough Heparin Sodium (Porcine) 5,000 unit 02/12/23 14:00 02/14/23 05:48 Heparin 5,000 Unit/Ml Vial SUBCUT 02/12/24 13:59 5,000 unit Q8HR ESTEBAN Administration Ceftriaxone Sodium 1 gm in 50 mls @ 100 mls/hr 02/12/23 08:15 02/13/23 08:30 Rocephin IV Infused Q24H ESTEBAN Infusion Doxycycline Hyclate 100 mg in 100 mls @ 100 mls/hr 02/12/23 08:15 02/13/23 21:42 Doxy 100 IV 100 mls/hr Q12H ESTEBAN Administration Lisinopril 20 mg 02/13/23 09:00 02/13/23 09:45 Lisinopril 20 Mg Tablet PO 02/13/24 08:59 20 mg DAILY ESTEBAN Administration Melatonin 5 mg 02/12/23 08:10 02/13/23 21:47 Melatonin 5 Mg Tablet PO 02/12/24 08:09 5 mg QHS PRN Administration Insomnia Methylprednisolone Sodium Succinate 40 mg 02/13/23 09:00 02/13/23 20:54 Methylprednisolone Sod Succ/Pf 40 Mg/Ml (1ml) Vial IV-PUSH 02/13/24 08:59 40 mg Q12HR ESTEBAN Administration Metoprolol Succinate 100 mg 02/12/23 09:00 02/13/23 08:00 Metoprolol Succinate 100 Mg Tab.Er.24h PO 02/12/24 08:59 100 mg DAILY ESTEBAN Administration Prochlorperazine Edisylate 5 mg 02/12/23 08:10 Prochlorperazine Edisylate 10 Mg/2 Ml Vial IV-PUSH 02/12/24 08:09 Q4H PRN Nausea And Vomiting Sennosides 1 tab 02/12/23 08:10 Sennosides 8.6 Mg Tablet PO 02/12/24 08:09 BID PRN Constipation A&P - Hospitalist Assessment/Plan (1) Shortness of breath: (2) CKD (chronic kidney disease) stage 3, GFR 30-59 ml/min: (3) Hypertension: (4) Acute hypoxic respiratory failure: (5) Community acquired pneumonia: Plan Acute hypoxic respiratory failure secondary to community acquired pneumonia Possible acute COPD exacerbation (undiagnosed COPD) Tobacco use, chronic smoker, active smoker -Failed outpatient treatment -Chest Xray done showed some infiltrates. patient reports chills at home, cough with sputum production, green sputum, dyspnea on minimal exertion. Desaturation to 80% on RA on arrival here. -Afebrile here but has leukocytosis WBC of 15.0> down to 12.7 today. Clinically improving, could be component of steroids induced since she was on steroids recently. -Continue Rocephin and doxycycline given to cover both typical and atypical pneumonia. Switch to oral -Sputum culture pending final results -Recent UTI. repeat UA negative here. -Monitor for fever/WBC trend Elevated troponin likely demand ischemia due to physiological stress of hypoxia and infectious process and CKD, poor creatinine clearance -Trending downward from 80s at [place] to 70s here. repeat trop 43, flat curse,no chest pain, clinically improving. low concern for ACS at this time. -continue home metoprolol, aspirin and statin. Hypertension -Resumed lisinopril, continue metoprolol. CKD stage 3b- stable for now -Continue monitoring creatinine Chronic conditions: Hx of CVA, had extensive cardiology workup including stress test, KELVIN, Holter monitor which seems unremarkable per patient. DVT Prophylaxis: Heparin Diet: as directed Discussed with patient at bedside, all questions answered. In agreement with plan Documented By: Geneva Rivas DO, RES 02/14/23 0797 Signed By: <Electronically signed by DO MARIANELA Rivas> 02/14/23 1132 <Electronically signed by Jacques East MD> 02/14/23 1245 [facility] Work Phone: 1(587) 850-893612-27-2023 Progress note Author Jacques East [facility] [place] February 13, 2023 10:47am Note Date/Time February 13, 2023 10:40am [facility] [address] [place] [address] Hospitalist Progress Note Signed Patient: Deysi Hernandez MR#: [id number] : 1960 Acct:[id number] Age/Sex: 62 / F Adm Date: 3 Loc: Room: [address] [place] [address] Type: ADM IN Attending Dr: Jacques East MD Copies to: ~ Date of Service: 02/13/2023 Subjective Subjective Narrative: Patient was evaluated at bedside this morning. Remained afebrile, hemodynamically stable, blood pressure improved and slightly elevated today, will restart lisinopril home dose. She reports improvement in her cough and sputum production which are much less today. Denies any nausea, vomiting, she still requiring 2 L nasal cannula. Appears comfortable and improving overall. Exam Physical Exam Vital Signs: Temp Pulse Resp BP Pulse Ox O2 Del Method O2 Flow Rate 98.0 F 74 20 142/89 H 94 L Nasal Cannula 2 02/13/23 07:55 02/13/23 07:55 02/13/23 07:55 02/13/23 07:55 02/13/23 07:55 02/13/23 09:10 02/13/23 09:10 Const General: cooperative, comfortable and in distress Nutritional Appearance: well nourished Orientation: alert, awake and oriented x3 Resp Effort & Inspection: normal respiratory effort, able to speak in complete sentences, symmetric chest movement and cough Auscultation: bronchial breath sounds and wheezes expiratory wheezes (mostly on RLL) Cardio Jugular venous pressure: no JVD Rate: regular rate Rhythm: regular rhythm Heart Sounds: S1 normal and S2 normal Objective Lab Results 02/13/23 06:10 02/13/23 06:10 Microbiology Results Microbiology 02/12/23 20:56 Sputum - Expectorated Gram Stain - Final Meds Allergies and Active Meds Allergies No Known Allergies Allergy (Verified 08/13/21 10:38) Active Meds: Active Medications Generic Name Dose Route Start Last Admin Trade Name Freq PRN Reason Stop Dose Admin Acetaminophen 650 mg 02/12/23 08:10 Acetaminophen 325 Mg Tablet PO 02/12/24 08:09 Q6HR PRN Pain Scale 1 - 3 or fever Albuterol 2.5 mg 02/12/23 08:10 Albuterol Neb 2.5 Mg/3 Ml Vial.Neb INHALATION 02/12/24 08:09 Q3H PRN Cough/Wheeze Albuterol/Ipratropium 3 ml 02/12/23 12:00 02/13/23 07:44 Ipratropium/Albuterol 0.5-3 Mg 3 Ml Ampul.Neb INHALATION 02/12/24 11:59 3 ml QID.RESP ESTEBAN Administration Aspirin 81 mg 02/12/23 09:00 02/13/23 08:00 Aspirin 81 Mg Tablet.Dr PO 02/12/24 08:59 81 mg DAILY ESTEBAN Administration Atorvastatin Calcium 40 mg 02/12/23 21:00 02/12/23 20:51 Atorvastatin 40 Mg Tablet PO 02/12/24 20:59 40 mg QPM ESTEBAN Administration Docusate Sodium 100 mg 02/12/23 08:10 Docusate 100 Mg Capsule PO 02/12/24 08:09 BID PRN Constipation Guaifenesin 1,200 mg 02/12/23 09:00 02/13/23 08:00 Guaifenesin 600 Mg Tab.Er.12h PO 02/12/24 08:59 1,200 mg BID ESTEBAN Administration Guaifenesin 20 ml 02/12/23 08:10 Guaifenesin Syrup 10 Ml Udc PO 02/12/24 08:09 QID PRN Cough Heparin Sodium (Porcine) 5,000 unit 02/12/23 14:00 02/13/23 05:30 Heparin 5,000 Unit/Ml Vial SUBCUT 02/12/24 13:59 5,000 unit Q8HR ESTEBAN Administration Ceftriaxone Sodium 1 gm in 50 mls @ 100 mls/hr 02/12/23 08:15 02/13/23 08:30 Rocephin IV Infused Q24H ESTEBAN Infusion Doxycycline Hyclate 100 mg in 100 mls @ 100 mls/hr 02/12/23 08:15 02/13/23 09:47 Doxy 100 IV Infused Q12H ESTEBAN Infusion Lisinopril 20 mg 02/13/23 09:00 02/13/23 09:45 Lisinopril 20 Mg Tablet PO 02/13/24 08:59 20 mg DAILY ESTEBAN Administration Melatonin 5 mg 02/12/23 08:10 Melatonin 5 Mg Tablet PO 02/12/24 08:09 QHS PRN Insomnia Methylprednisolone Sodium Succinate 40 mg 02/13/23 09:00 02/13/23 09:45 Methylprednisolone Sod Succ/Pf 40 Mg/Ml (1ml) Vial IV-PUSH 02/13/24 08:59 40 mg Q12HR ESTEBAN Administration Metoprolol Succinate 100 mg 02/12/23 09:00 02/13/23 08:00 Metoprolol Succinate 100 Mg Tab.Er.24h PO 02/12/24 08:59 100 mg DAILY ESTEBAN Administration Prochlorperazine Edisylate 5 mg 02/12/23 08:10 Prochlorperazine Edisylate 10 Mg/2 Ml Vial IV-PUSH 02/12/24 08:09 Q4H PRN Nausea And Vomiting Sennosides 1 tab 02/12/23 08:10 Sennosides 8.6 Mg Tablet PO 02/12/24 08:09 BID PRN Constipation A&P - Hospitalist Assessment/Plan (1) Shortness of breath: (2) CKD (chronic kidney disease) stage 3, GFR 30-59 ml/min: (3) Hypertension: (4) Acute hypoxic respiratory failure: (5) Community acquired pneumonia: Plan Acute hypoxic respiratory failure secondary to community acquired pneumonia Possible acute COPD exacerbation (undiagnosed COPD) Tobacco use, chronic smoker, active smoker -Failed outpatient treatment -Chest Xray done showed some infiltrates. patient reports chills at home, cough with sputum production, green sputum, dyspnea on minimal exertion. Desaturation to 80% on RA on arrival here. -Afebrile here but has leukocytosis WBC of 15.0> down to 14.9 today. Clinically improving, could be component of steroids induced since she was on steroids recently. -Continue Rocephin and doxycycline given to cover both typical and atypical pneumonia -Noted with some expiratory wheezes today mostly on RLL. Will add IV steroids asdirected. -Sputum culture pending final results -Recent UTI. repeat UA negative here. -Monitor for fever/WBC trend Elevated troponin likely demand ischemia due to physiological stress of hypoxia and infectious process and CKD, poor creatinine clearance -Trending downward from 80s at [place] to 70s here. repeat trop 43, flat curse,no chest pain, clinically improving. low concern for ACS at this time. -continue home metoprolol, aspirin and statin. Hypertension -Resumed lisinopril, continue metoprolol. CKD stage 3b- stable for now -Continue monitoring creatinine Chronic conditions: Hx of CVA, had extensive cardiology workup including stress test, KELVIN, Holter monitor which seems unremarkable per patient. DVT Prophylaxis: Heparin Diet: as directed Discussed with patient at bedside, all questions answered. In agreement with plan If remains stable and continues to improve, discharge planning tomorrow with oral AB and oral steroids taper Documented By: Jacques East MD 02/13/23 10 39 Signed By: <Electronically signed by Jacques East MD> 02/13/23 4492 [facility] Work Phone: [phone]) 627-490312-26-2023 History and physical note Author Jacques East [facility] February 12, 2023 11:26am Note Date/Time February 12, 2023 9:53am [facility] [address] [place] [address] Hospitalist H&P Signed Patient: Deysi Hernandez MR#: [id number] : 1960 Acct:[id number] Age/Sex: 62 / F Adm Date: 3 Loc: Room: [address] [place] [address] Type: ADM INOo Attending Dr: Jacques East MD Copies to: Geneva Rivas DO, RES MD Shaikh Donna Piña MD~ HPI DATE OF EXAMINATION: 02/12/23 CHIEF COMPLAINT: Shortness of breath HISTORY OF PRESENT ILLNESS: Patient is a 62 year old female with PMHx of CKD presented to [facility] with shortness of breath and was transferred to [facility] due to elevated troponins. Patient states she has had shortness of breath for a few days with associated cough with green sputum. She does not use home oxygen, but is currently on 2L nasal canula with a 95% O2 saturation. She states she was placed on cephalexin for UTI and respiratory coverage by the walk in clinic, but has not had much relief. Patient has history of CKDIII with creatinine today 1.65. Patient follows with cardiology and nephrology regularly. She has an appointment scheduled with cardiology on February 28. Patient states she had echocardiogram and chemical stress test a year ago that were both normal. Labs are significant for WBC 15, Creatinine 1.65, BUN 32, glucose 157, magnesium1.8, troponin 70.6 (down from 87 yesterday at [place]). Review of Systems Review of Systems All other systems reviewed & are negative unless noted below or in HPI Review of systems: 10 systems are reviewed and are negative except as mentioned elsewhere in the documentation [facility] Medical History CKD (chronic kidney disease) stage 3, GFR 30-59 ml/min Embolic cerebrovascular disease High cholesterol Problem List clean-up per request of Phys. EHR Cmte Hypertension Problem List clean-up per request of Phys. EHR Cmte Family History Father Myocardial infarction Heart disease Mother Breast cancer Social History Smoking Status: Current every day smoker Tobacco Type: cigarettes Substance Use Type: None Meds Medications and Allergies Allergies No Known Allergies Allergy (Verified 08/13/21 10:38) Home Medications aspirin 81 mg tablet,delayed release 81 mg PO DAILY 30 days #30 tabs 08/17/21 [Rx Confirmed 02/12/23] atorvastatin 40 mg tablet 40 mg PO QPM 30 days #30 tabs 08/17/21 [Rx Confirmed 02/12/23] metoprolol succinate 100 mg tablet,extended release 24 hr 100 mg PO DAILY 30 days #30 tabs 08/17/21 [Rx Confirmed 02/12/23] lisinopril 20 mg tablet 20 mg PO DAILY 02/12/23 [History Confirmed 02/12/23] Exam Physical Exam Vital Signs: Temp Pulse Resp BP Pulse Ox O2 Del Method O2 Flow Rate 97.7 F 100 H 20 118/71 95 Nasal Cannula 2 02/12/23 08:00 02/12/23 08:00 02/12/23 08:00 02/12/23 08:00 02/12/23 08:00 02/12/23 08:00 02/12/23 08:00 Const General: cooperative, comfortable and in distress Nutritional Appearance: well nourished Orientation: alert, awake and oriented x3 HEENT Head: normal to inspection, normocephalic and atraumatic Nose: external nose normal Eyes General: appearance normal, both eyes and all related structures Neck Neck: normal visual inspection Chest Chest palpation & inspection: normal inspection of the chest Resp Effort & Inspection: normal respiratory effort and cough (Green sputum ) Qualityof cough: productive Auscultation: rales (Present in left lower lung lobe) on the left Cardio Jugular venous pressure: no JVD Rate: tachycardic Rhythm: regular rhythm Heart Sounds: S1 normal and S2 normal GI Inspection: normal to inspection Palpation: soft Skin Lesions: lesion noted (Several flea bites on bilateral lower extremities) Rashes: no rashes Neuro General: patient alert, patient awake and patient oriented x3 Cognition: normal cognition Speech: speech normal Psych Appearance: grossly normal and well kempt Affect: normal affect Speech and Movement: speech and movement normal Attitude: cooperative Thought Process: normal Thought Content: normal Insight: insight good Judgment: judgment good Results Lab Results Labs: Laboratory Last Values Corrected WBC 15.0 X10E3/uL (3.8-11.6) H 02/12/23 06:41 Uncorrected WBC Count 15.0 x10E3/uL (3.8-11.6) H 02/12/23 06:41 RBC 5.09 X10E6/uL (3.60-5.00) H 02/12/23 06:41 Hgb 15.6 g/dL (11.8-15.4) H 02/12/23 06:41 Hct 46.1 % (34.0-46.4) 02/12/23 06:41 MCV 90.6 fl (80-100) 02/12/23 06:41 MCH 30.6 pg (24.7-34.3) 02/12/23 06:41 MCHC 33.8 g/dL (32.0-35.0) 02/12/23 06:41 RDW 14.6 % (11.9-15.3) 02/12/23 06:41 Plt Count 236 x10E3/uL (150-450) 02/12/23 06:41 MPV 7.9 fl (6.3-10.7) 02/12/23 06:41 Neut % (Auto) 94.0 % (.) 02/12/23 06:41 Lymph % (Auto) 4.0 % (.) 02/12/23 06:41 [place] % (Auto) 1.8 % (.) 02/12/23 06:41 Eos % (Auto) 0.0 % (.) 02/12/23 06:41 Baso % (Auto) 0.2 % (.) 02/12/23 06:41 Nucleat RBC Rel Count 0.1 /100 WBC (0-0.5) 02/12/23 06:41 Neut # (Auto) 14.1 x10E3/uL (1.8-7.7) H 02/12/23 06:41 Lymph # (Auto) 0.6 x10E3/uL (1.00-4.8) L 02/12/23 06:41 [place] # (Auto) 0.3 x10E3/uL (0.0-0.8) 02/12/23 06:41 Eos # (Auto) 0.0 x10E3/uL (0.0-0.45) 02/12/23 06:41 Baso # (Auto) 0.0 x10E3/uL (0.0-0.2) 02/12/23 06:41 PT 10.9 Seconds (9.0-12.9) 02/12/23 06:41 INR 0.9 02/12/23 06:41 APTT 25.6 Seconds (25.1-36.5) 02/12/23 06:41 PHA Creatinine Clear 34.03 02/12/23 06:41 Sodium 140 mmol/L (136-145) 02/12/23 06:41 Potassium 4.4 mmol/L (3.5-5.1) 02/12/23 07:50 Chloride 106 mmol/L (98-107) 02/12/23 06:41 Carbon Dioxide 20.4 mmol/L (21.0-31.0) L 02/12/23 06:41 Anion Gap TNP 02/12/23 06:41 BUN 32 mg/dL (7-25) H 02/12/23 06:41 Creatinine 1.65 mg/dL (0.60-1.20) H 02/12/23 06:41 Est GFR (CKD-EPI) 35.363 mL/Min 02/12/23 06:41 Glucose 157 mg/dL (70-100) H 02/12/23 06:41 Calcium 9.9 mg/dL (8.6-10.3) 02/12/23 06:41 Magnesium 1.8 mg/dL (1.9-2.7) L 02/12/23 06:41 Total Bilirubin 0.5 mg/dl (0.3-1.0) 02/12/23 06:41 AST 29 U/L (13-39) 02/12/23 06:41 ALT 19 U/L (7-52) 02/12/23 06:41 Alkaline Phosphatase 70 U/L (34-104) 02/12/23 06:41 Troponin I High Sens 70.6 pg/mL (0.0-15.0) H* 02/12/23 06:41 Total Protein 7.7 gm/dL (6.4-8.9) 02/12/23 06:41 Albumin 4.6 gm/dL (3.5-5.7) 02/12/23 06:41 Globulin 3.1 gm/dL 02/12/23 06:41 Albumin/Globulin Ratio 1.5 02/12/23 06:41 Assessment & Plan Assessment/Plan (1) Shortness of breath: (2) CKD (chronic kidney disease) stage 3, GFR 30-59 ml/min: (3) Hypertension: (4) Acute hypoxic respiratory failure: (5) Community acquired pneumonia: Plan Acute hypoxic respiratory failure secondary to community acquired pneumonia -Failed outpatient treatment -Chest Xray done showed some infiltrates. patient reports chills at home, cough with sputum production, green sputum, dyspnea on minimal exertion. Desaturation to 80% on RA on arrival here. -Afebrile here but has leukocytosis WBC of 15.0. -Start Rocephin and doxycycline given to cover both typical and atypical pneumonia -Sputum culture ordered -Recent UTI. repeat UA negative here. -Monitor for fever/WBC trend Elevated troponin likely demand ischemia due to physiological stress of hypoxia and infectious process and CKD, poor creatinine clearance -Trending downward from 80s at [place] to 70s here. Will trend it again. -Will consider consult cardiology if any concerns for ACS. -Patient is tachycardic on exam, continue home metoprolol Hypertension -Patient not currently hypertensive -Hold home lisinopril for now since normotensive and due to infectious process. Continue Metoprolol CKD stage 3b- stable for now -Continue monitoring creatinine Chronic conditions: Hx of CVA, had extensive cardiology workup including stress test, KELVIN, holter monitor which seems unremarkable per patient. DVT Prophylaxis: Heparin Diet: as directed Discussed with patient at bedside, all questions answered. Attending Physician Attestation: I personally reviewed the history, performed the goldman elements of the exam, formulated the plan of care and confirmed the written note. I agree with the findings and plan as documented in this note and have edited it if needed to reflect my findings and plan. Jacques Quiñonez MD IP vs OBS Justification Based on differential dx, clinical care plan, and risk of adverse events, if untreated, in my clinical judgement this patient requires an acute care setting as: INPATIENT because of an expectation of an over 2 midnight stay. Estimated length of stay (# of days): 3 Documented By: Geneva Rivas DO, RES 02/12/23 0939 Signed By: <Electronically signed by DO MARIANELA Rivas> 02/12/23 1044 <Electronically signed by Jacques East MD> 02/12/23 1126 [facility] Work Phone: [phone]) 238-255912-24-2023 Hospital Discharge instructions Patient Education 02/10/2023 17:12:09 Urinary Tract Infection, Adult, [id number] Urinary Tract Infection, Adult A urinary tract infection (UTI) is an infection of any part of the urinary tract. The urinary tractincludes: The kidneys. The ureters. The bladder. The urethra. These organs make, store, and get rid of pee (urine) in the body. What are the causes? This infection is caused by germs (bacteria) in your genital area. These germs grow and cause swelling (inflammation) of your urinary tract. What increases the risk? The following factors may make you more likely to develop this condition: Using a small, thin tube (catheter) to drain pee. Not being able to control when you pee or poop (incontinence). Being female. If you are female, these things can increase the risk: ?Using these methods to prevent : ?A medicine that kills sperm (spermicide). ?A device that blocks sperm (diaphragm). ?Having low levels of a female hormone (estrogen). ?Being . You are more likely to develop this condition if: You have genes that add to your risk. You are sexually active. You take antibiotic medicines. You have trouble peeing because of: ?A prostate that is bigger than normal, if you are male. ?A blockage in the part of your body that drains pee from the bladder. ?A kidney stone. ?A nerve condition that affects your bladder. ?Not getting enough to drink. ?Not peeing often enough. You have other conditions, such as: ?Diabetes. ?A weak disease-fighting system (immune system). ?Sickle cell disease. ?Gout. ?Injury of the spine. What are the signs or symptoms? Symptoms of this condition include: Needing to pee right away. Peeing small amounts often. Pain or burning when peeing. Blood in the pee. Pee that smells bad or not like normal. Trouble peeing. Pee that is cloudy. Fluid coming from the vagina, if you are female. Pain in the belly or lower back. Other symptoms include: Vomiting. Not feeling hungry. Feeling mixed up (confused). This may be the first symptom in older adults. Being tired and grouchy (irritable). A fever. Watery poop (diarrhea). How is this treated? Taking antibiotic medicine. Taking other medicines. Drinking enough water. In some cases, you may need to see a specialist. Follow these instructions at home: Medicines Take coux-owk-zcwzyjl and prescription medicines only as told by your doctor. If you were prescribed an antibiotic medicine, take it as told by your doctor. Do not stop taking it even if you start to feel better. General instructions Make sure you: ?Pee until your bladder is empty. ?Do not hold pee for a long time. ?Empty your bladder after sex. ?Wipe from front to back after peeing or pooping if you are a female. Use each tissue one time whenyou wipe. Drink enough fluid to keep your pee pale yellow. Keep all follow-up visits. Contact a doctor if: You do not get better after 1 2 days. Your symptoms go away and then come back. Get help right away if: You have very bad back pain. You have very bad pain in your lower belly. You have a fever. You have chills. You feeling like you will vomit or you vomit. Summary A urinary tract infection (UTI) is an infection of any part of the urinary tract. This condition is caused by germs in your genital area. There are many risk factors for a UTI. Treatment includes antibiotic medicines. Drink enough fluid to keep your pee pale yellow. This information is not intended to replace advice given to you by your health care provider. Make sure you discuss any questions you have with your health care provider. Document Revised: 09/16/2020 Document Reviewed: 09/16/2020 [employer] Patient Education 2022 [employer] ([employer]). 02/10/2023 17:12:09 Acute Bronchitis, Adult Acute Bronchitis, Adult Acute bronchitis is sudden inflammation of the main airways (bronchi) that come off the windpipe (trachea) in the lungs. The swelling causes the airways to get smaller and make more mucus than normal. This can make it hard to breathe and can cause coughing or noisy breathing (wheezing). Acute bronchitis may last several weeks. The cough may last longer. Allergies, asthma, and exposureto smoke may make the condition worse. What are the causes? This condition can be caused by germs and by substances that irritate the lungs, including: Cold and flu viruses. The most common cause of this condition is the virus that causes the common cold. Bacteria. This is less common. Breathing in substances that irritate the lungs, including: ?Smoke from cigarettes and other forms of tobacco. ?Dust and pollen. ?Fumes from household cleaning products, gases, or burned fuel. ?Indoor or outdoor air pollution. What increases the risk? The following factors may make you more likely to develop this condition: A weak body's defense system, also called the immune system. A condition that affects your lungs and breathing, such as asthma. What are the signs or symptoms? Common symptoms of this condition include: Coughing. This may bring up clear, yellow, or green mucus from your lungs (sputum). Wheezing. Runny or stuffy nose. Having too much mucus in your lungs (chest congestion). Shortness of breath. Aches and pains, including sore throat or chest. How is this diagnosed? This condition is usually diagnosed based on: Your symptoms and medical history. A physical exam. You may also have other tests, including tests to rule out other conditions, such as pneumonia. These tests include: A test of lung function. Test of a mucus sample to look for the presence of bacteria. Tests to check the oxygen level in your blood. Blood tests. Chest X-ray. How is this treated? Most cases of acute bronchitis clear up over time without treatment. Your health care provider may recommend: Drinking more fluids to help thin your mucus so it is easier to cough up. Taking inhaled medicine (inhaler) to improve air flow in and out of your lungs. Using a vaporizer or a humidifier. These are machines that add water to the air to help you breathebetter. Taking a medicine that thins mucus and clears congestion (expectorant). Taking a medicine that prevents or stops coughing (cough suppressant). It is not common to take an antibiotic medicine for this condition. Follow these instructions at home: Take cxzy-tbv-queidjk and prescription medicines only as told by your health care provider. Use an inhaler, vaporizer, or humidifier as told by your health care provider. Take two teaspoons (10 mL) of honey at bedtime to lessen coughing at night. Drink enough fluid to keep your urine pale yellow. Do not use any products that contain nicotine or tobacco. These products include cigarettes, chewing tobacco, and vaping devices, such as e-cigarettes. If you need help quitting, ask your health careprovider. Get plenty of rest. Return to your normal activities as told by your health care provider. Ask your health care provider what activities are safe for you. Keep all follow-up visits. This is important. How is this prevented? To lower your risk of getting this condition again: Wash your hands often with soap and water for at least 20 seconds. If soap and water are not available, use hand recreational programs director. Avoid contact with people who have cold symptoms. Try not to touch your mouth, nose, or eyes with your hands. Avoid breathing in smoke or chemical fumes. Breathing smoke or chemical fumes will make your condition worse. Get the flu shot every year. Contact a health care provider if: Your symptoms do not improve after 2 weeks. You have trouble coughing up the mucus. Your cough keeps you awake at night. You have a fever. Get help right away if you: Cough up blood. Feel pain in your chest. Have severe shortness of breath. Faint or keep feeling like you are going to faint. Have a severe headache. Have a fever or chills that get worse. These symptoms may represent a serious problem that is an emergency. Do not wait to see if the symptoms will go away. Get medical help right away. Call your local emergency services (911 in the [place] Do not drive yourself to the hospital. Summary Acute bronchitis is inflammation of the main airways (bronchi) that come off the windpipe (trachea)in the lungs. The swelling causes the airways to get smaller and make more mucus than normal. Drinking more fluids can help thin your mucus so it is easier to cough up. Take gsty-izx-itwqqzb and prescription medicines only as told by your health care provider. Do not use any products that contain nicotine or tobacco. These products include cigarettes, chewing tobacco, and vaping devices, such as e-cigarettes. If you need help quitting, ask your health careprovider. Contact a health care provider if your symptoms do not improve after 2 weeks. This information is not intended to replace advice given to you by your health care provider. Make sure you discuss any questions you have with your health care provider. Document Revised: 05/17/2022 Document Reviewed: 06/07/2021 [employer] Patient Education 2022 [employer] ([employer]). Follow Up Care 02/10/2023 14:38:40 With:SHAIKH DONNA Address: [address] [place], [place] [address] [address] [phone] Business (1) When:02/13/2023 16:16:37 Comments:Follow-up with your primary care provider in 3 to 5 days. If symptoms worsen, do not improve, or new symptoms arise please report back to emergency department for further evaluation. [facility]12-24-2023 Evaluation + Plan note Diagnostic Tests Pending * Urine Culture 02/10/23 [facility]12-24-2023 Evaluation + Plan noteExtracted from: Title:ED Note Author:Keon Fonseca PA-C te:02/10/23 Bronchitis (J40: Bronchitis, not specified as acute or chronic) UTI (urinary tract infection) (N39.0: Urinary tract infection, site not specified) Orders: albuterol-ipratropium, 3 mL, Soln-Inh, Inhalation, Once, Stop date 02/10/23 15:14:00 EST, STAT, Start date 02/10/23 15:14:00 EST cefdinir, 900 mg = 3 cap(s), Cap, Oral, q12hr, STAT, Start date 02/10/23 16:13:00 EST, 300mg now, 2 tabs to go, 02/10/23 16:13:00 EST cefdinir, 300 mg = 1 cap(s), Oral, q12hr, X 7 day(s), # 14 cap(s), Refills(s) 0, Pharmacy: [facility]/pharmacy #[id number], 163, cm, 02/10/23 14:52:00 EST, Height/Length Dosing, 70, kg, 02/10/23 14:52:00 EST, Weight Dosing predniSONE, 60 mg = 3 tab(s), Oral, Daily, X 5 day(s), # 15 tab(s), Refills(s) 0, Pharmacy: [facility]/pharmacy #[id number], 163, cm, 02/10/23 14:52:00 EST, Height/Length Dosing, 70, kg, 02/10/23 14:52:00 EST, Weight Dosing predniSONE, 60 mg = 3 tab(s), Tab, Oral, Once, Stop date 02/10/23 16:15:00 EST, STAT, Start date 02/10/23 16:15:00 EST, 02/10/23 16:15:00 EST predniSONE, 60 mg = 3 tab(s), Tab, Oral, Once, Stop date 02/10/23 16:15:00 EST, STAT, Start date 02/10/23 16:15:00 EST, 02/10/23 16:15:00 EST Automated Diff B-Type Natriuretic Peptide Basic Metabolic Panel CBC w/ Auto Diff Continuous Pulse Oximetry ED Cardiac Monitoring eGFR Influenza A&B Ag PT & PTT Rapid COVID Antigen ([facility] [place]) Saline Lock Insert Troponin 0 Hr. Troponin 3 Hr. XR Chest Single View [facility]09-12-2023 Evaluation note* Diagnosis Stage 3 chronic kidney disease, unspecified whether stage 3a or 3b CKD (HCC) documented in this encounter [facility]09-11-2023 NoteHNO ID: [id number] Author: Debra Fishman MD Service: ? Author Type: Physician Type: Progress Notes Filed: 10/29/2022 9:00 PM Note Text: Patient contacted me regarding high blood pressure in 150-160 mmHg at home. We agreed to increase lisinopril back to 10 mg daily, updated prescription sent to pharmacy on file. Debra Fishman MD Staff, Department of Kidney Medicine 10/29/22 9:00 [facility]09-11-2023 History of Present illness Narrative * Debra Fishman MD - 10/29/2022 8:59 PM EDT Patient contacted me regarding high blood pressure in 150-160 mmHg at home. We agreed to increase lisinopril back to 10 mg daily, updated prescription sent to pharmacy on file. Debra Fishman MD Staff, Department of Kidney Medicine 10/29/22 9:00 PM [facility] Miscellaneous Notes* Telephone Encounter - Debra Fishman MD - 10/26/2022 5:48 PM EDT I received a message on 10/25 the patient contacted our office and requested a call back. I called the patient on 10/25 at 1:30 PM and 6:30 PM and then again on 10/26 at 5:45 PM per her request. Patient did not answer the phone, I left her a voice messages. She can contact our office if still has a question. I will also send her a [employer] message encouraging communicate via [employer] if needed. Debra Fishman MD Staff, Department of Kidney Medicine 10/26/22 5:49 PM [facility] Miscellaneous Notes* Telephone Encounter - Linn Solis Ma - 10/25/2022 12:32 PM EDT Patient called the office very upset because today at here appointment with Kidney Medicine she wasseen by another provider and it wasn't her kidney doctor. She would like Dr. Fishman call her back at [phone] because she has lots of questions that the patient wants answers to and the patient is requesting that the provider calls her back after 5:30 pm due to the patient works that late Saturday thru Saturday [facility] Hospital Discharge instructions Patient Education 10/15/2022 18:04:54 Health Risks of Smoking Health Risks of Smoking Smoking tobacco is very bad for your health. Tobacco smoke contains many toxic chemicals that can damage every part of your body. Secondhand smoke can be harmful to those around you. Tobacco or nicotine use can cause many long-term (chronic) diseases. Smoking is difficult to quit because a chemical in tobacco, called nicotine, causes addiction or dependence. When you smoke and inhale, nicotine is absorbed quickly into your bloodstream through yourlungs. Both inhaled and non-inhaled nicotine may be addictive. How can quitting affect me? There are health benefits of quitting smoking. Some benefits happen right away and others take time. Benefits may include: Blood flow, blood pressure, heart rate, and lung capacity may begin to improve. However, any lung damage that has already occurred cannot be repaired. Respiratory symptoms from smoking, such as nasal congestion and cough, may improve over time. Your risk of heart disease, stroke, and cancer is reduced. The overall quality of your health may improve. You may save money, as you will not spend money on tobacco products and may spend less money on smoking-related health issues. What can increase my risk? Smoking harms nearly every organ in the body. People who smoke tobacco have a shorter life expectancy and an increased risk of many serious medical problems. These include: More respiratory infections, such as colds and pneumonia. Cancer. Heart disease. Stroke. Chronic respiratory diseases. Delayed wound healing and increased risk of complications during surgery. Problems with reproduction, , and childbirth, such as infertility, early (premature) births, stillbirths, and defects. Secondhand smoke exposure to children increases the risk of: Sudden infant syndrome (SIDS). Infections in the nose, throat, or airways (respiratory infections). Chronic respiratory symptoms. What actions can I take to quit? Smoking is an addiction that affects both your body and your mind, and long-time habits can be hardto change. Your health care provider can recommend: Nicotine replacement products, such as patches, gum, and nasal sprays. Use these products only as directed. Do not replace cigarette smoking with electronic cigarettes, which are commonly called e-cigarettes. The safety of e-cigarettes is not known, and some may contain harmful chemicals. Programs and community resources, which may include group support, education, or talk therapy. Prescription medicines to help reduce cravings. A combination of two or more quit methods, which may increase the success of quitting. Where to find support Follow the recommendations from your health care provider about support groups and other assistance. You can also visit: U.[place]. Department of Health and Human Services: www.smokefree.gov [employer]: www.freedomfromsmoking.org [place] Heart [employer]: www.heart.org Where to find more information Centers for Disease Control and Prevention: www.cdc.gov World Health Organization: www.who.int Summary Smoking tobacco is very bad for your health. Tobacco smoke contains many toxic chemicals that can damage every part of the body. Smoking is difficult to quit because a chemical in tobacco, called nicotine, causes addiction or dependence. There are immediate and long-term health benefits of quitting smoking. A combination of two or more quit methods may increase the success of quitting. This information is not intended to replace advice given to you by your health care provider. Make sure you discuss any questions you have with your health care provider. Document Revised: 02/06/2022 Document Reviewed: 02/06/2022 [employer] Patient Education 2022 [employer] ([employer]). 10/15/2022 18:04:53 Steps to Quit Smoking Steps to Quit Smoking Smoking tobacco is the leading cause of preventable . It can affect almost every organ in the body. Smoking puts you and those around you at risk for developing many serious chronic diseases. Quitting smoking can be very challenging. Do not get discouraged if you are not successful the first time. Some people need to make many attempts to quit before they achieve long-term success. Do your best to stick to your quit plan, and talk with your health care provider if you have any questionsor concerns. How do I get ready to quit? When you decide to quit smoking, create a plan to help you succeed. Before you quit: Pick a date to quit. Set a date within the next 2 weeks to give you time to prepare. Write down the reasons why you are quitting. Keep this list in places where you will see it often. Tell your family, friends, and co-workers that you are quitting. Support from people you are close to can make quitting easier. Talk with your health care provider about your options for quitting smoking. Find out what treatment options are covered by your health insurance. Identify people, places, things, and activities that make you want to smoke (triggers). Avoid them. What first steps can I take to quit smoking? Throw away all cigarettes at home, at work, and in your car. Throw away smoking accessories, such as ashtrays and lighters. Clean your car. Make sure to empty the ashtray. Clean your home, including curtains and carpets. What strategies can I use to quit smoking? Talk with your health care provider about combining strategies, such as taking medicines while you are also receiving in-person counseling. Using these two strategies together makes you more likely to succeed in quitting than if you used either strategy on its own. If you are or , talk with your health care provider about finding counseling or other support strategies to quit smoking. Do not take medicine to help you quit smoking unless your health care provider tells you to. Quit right away Quit smoking completely, instead of gradually reducing how much you smoke over a period of time. Stopping smoking right away may be more successful than gradually quitting. Attend in-person counseling to help you build problem-solving skills. You are more likely to succeed in quitting if you attend counseling sessions regularly. Even short sessions of 10 minutes can be effective. Take medicine You may take medicines to help you quit smoking. Some medicines require a prescription. You can also purchase crei-twi-gfmehbk medicines. Medicines may have nicotine in them to replace the nicotine in cigarettes. Medicines may: Help to stop cravings. Help to relieve withdrawal symptoms. Your health care provider may recommend: Nicotine patches, gum, or lozenges. Nicotine inhalers or sprays. Non-nicotine medicine that you take by mouth. Find resources Find resources and support systems that can help you quit smoking and remain smoke-free after you quit. These resources are most helpful when you use them often. They include: Online chats with a counselor. Telephone quitlines. Printed self-help materials. Support groups or group counseling. Text messaging programs. Mobile phone apps or applications. Use apps that can help you stick to your quit plan by providing reminders, tips, and encouragement. Examples of free services include Quit Guide from the CDC and smokefree.gov What can I do to make it easier to quit? Reach out to your family and friends for support and encouragement. Call telephone quitlines, such as 6-057-TZXC-NOW, reach out to support groups, or work with a counselor for support. Ask people who smoke to avoid smoking around you. Avoid places that trigger you to smoke, such as bars, parties, or smoke-break areas at work. Spend time with people who do not smoke. Lessen the stress in your life. Stress can be a smoking trigger for some people. To lessen stress, try: ?Exercising regularly. ?Doing deep-breathing exercises. ?Doing yoga. ?Meditating. What benefits will I see if I quit smoking? Over time, you should start to see positive results, such as: Improved sense of smell and taste. Decreased coughing and sore throat. Slower heart rate. Lower blood pressure. Clearer and healthier skin. The ability to breathe more easily. Fewer sick days. Summary Quitting smoking can be very challenging. Do not get discouraged if you are not successful the first time. Some people need to make many attempts to quit before they achieve long-term success. When you decide to quit smoking, create a plan to help you succeed. Quit smoking right away, not slowly over a period of time. Find resources and support systems that can help you quit smoking and remain smoke-free after you quit. This information is not intended to replace advice given to you by your health care provider. Make sure you discuss any questions you have with your health care provider. Document Revised: 01/26/2022 Document Reviewed: 01/26/2022 [employer] Patient Education 2022 [employer] ([employer]). 10/15/2022 18:04:51 BMI for Adults BMI for Adults What is BMI? Body mass index (BMI) is a number that is calculated from a person's weight and height. BMI can help estimate how much of a person's weight is composed of fat. BMI does not measure body fat directly.Rather, it is an alternative to procedures that directly measure body fat, which can be difficult and expensive. BMI can help identify people who may be at higher risk for certain medical problems. What are BMI measurements used for? BMI is used as a screening tool to identify possible weight problems. It helps determine whether a person is obese, overweight, a healthy weight, or underweight. BMI is useful for: Identifying a weight problem that may be related to a medical condition or may increase the risk for medical problems. Promoting changes, such as changes in diet and exercise, to help reach a healthy weight. BMI screening can be repeated to see if these changes are working. How is BMI calculated? BMI involves measuring your weight in relation to your height. Both height and weight are measured,and the BMI is calculated from those numbers. This can be done either in [place] or metric measurements. Note that charts and online BMI calculators are available to help you find your BMI quickly and easily without having to do these calculations yourself. To calculate your BMI in [place] measurements: 1.Measure your weight in pounds (lb). 2.Multiply the number of pounds by 703. For example, for a person who weighs 180 lb, multiply that number by 703, which equals 126,540. 3.Measure your height in inches. Then multiply that number by itself to get a measurement called inches squared. For example, for a person who is 70 inches tall, the inches squared measurement is 70 inches x 70inches, which equals 4,900 inches squared. 4.Divide the total from step 2 (number of lb x 703) by the total from step 3 (inches squared): 126,540 4,900 = 25.8. This is your BMI. To calculate your BMI in metric measurements: 1.Measure your weight in kilograms (kg). 2.Measure your height in meters (m). Then multiply that number by itself to get a measurement called meters squared. For example, for a person who is 1.75 m tall, the meters squared measurement is 1.75 m x 1.75 m, which is equal to 3.1 meters squared. 3.Divide the number of kilograms (your weight) by the meters squared number. In this example: 70 3.1 = 22.6. This is your BMI. What do the results mean? BMI charts are used to identify whether you are underweight, normal weight, overweight, or obese. The following guidelines will be used: Underweight: BMI less than 18.5. Normal weight: BMI between 18.5 and 24.9. Overweight: BMI between 25 and 29.9. Obese: BMI of 30 or above. Keep these notes in mind: Weight includes both fat and muscle, so someone with a muscular build, such as an athlete, may havea BMI that is higher than 24.9. In cases like these, BMI is not an accurate measure of body fat. To determine if excess body fat is the cause of a BMI of 25 or higher, further assessments may needto be done by a health care provider. BMI is usually interpreted in the same way for men and women. Where to find more information For more information about BMI, including tools to quickly calculate your BMI, go to these websites: Centers for Disease Control and Prevention: www.cdc.gov [employer] Heart Association: www.heart.org National Heart, Lung, and Blood [place]: www.nhlbi.nih.gov Summary Body mass index (BMI) is a number that is calculated from a person's weight and height. BMI may help estimate how much of a person's weight is composed of fat. BMI can help identify thosewho may be at higher risk for certain medical problems. BMI can be measured using Iranian measurements or metric measurements. BMI charts are used to identify whether you are underweight, normal weight, overweight, or obese. This information is not intended to replace advice given to you by your health care provider. Make sure you discuss any questions you have with your health care provider. Document Revised: 10/28/2019 Document Reviewed: 09/04/2019 [employer] Patient Education 2022 [employer] ([employer]). 10/15/2022 18:04:48 Urinary Tract Infection, Adult Urinary Tract Infection, Adult A urinary tract infection (UTI) is an infection of any part of the urinary tract. The urinary tractincludes the kidneys, ureters, bladder, and urethra. These organs make, store, and get rid of urinein the body. An upper UTI affects the ureters and kidneys. A lower UTI affects the bladder and urethra. What are the causes? Most urinary tract infections are caused by bacteria in your genital area around your urethra, where urine leaves your body. These bacteria grow and cause inflammation of your urinary tract. What increases the risk? You are more likely to develop this condition if: You have a urinary catheter that stays in place. You are not able to control when you urinate or have a bowel movement (incontinence). You are female and you: ?Use a spermicide or diaphragm for control. ?Have low estrogen levels. ?Are . You have certain genes that increase your risk. You are sexually active. You take antibiotic medicines. You have a condition that causes your flow of urine to slow down, such as: ?An enlarged prostate, if you are male. ?Blockage in your urethra. ?A kidney stone. ?A nerve condition that affects your bladder control (neurogenic bladder). ?Not getting enough to drink, or not urinating often. You have certain medical conditions, such as: ?Diabetes. ?A weak disease-fighting system (immunesystem). ?Sickle cell disease. ?Gout. ?Spinal cord injury. What are the signs or symptoms? Symptoms of this condition include: Needing to urinate right away (urgency). Frequent urination. This may include small amounts of urine each time you urinate. Pain or burning with urination. Blood in the urine. Urine that smells bad or unusual. Trouble urinating. Cloudy urine. Vaginal discharge, if you are female. Pain in the abdomen or the lower back. You may also have: Vomiting or a decreased appetite. Confusion. Irritability or tiredness. A fever or chills. Diarrhea. The first symptom in older adults may be confusion. In some cases, they may not have any symptoms until the infection has worsened. How is this diagnosed? This condition is diagnosed based on your medical history and a physical exam. You may also have other tests, including: Urine tests. Blood tests. Tests for STIs (sexually transmitted infections). If you have had more than one UTI, a cystoscopy or imaging studies may be done to determine the cause of the infections. How is this treated? Treatment for this condition includes: Antibiotic medicine. Axuw-hsd-snkqgtx medicines to treat discomfort. Drinking enough water to stay hydrated. If you have frequent infections or have other conditions such as a kidney stone, you may need to see a health care provider who specializes in the urinary tract (urologist). In rare cases, urinary tract infections can cause sepsis. Sepsis is a life- threatening condition that occurs when the body responds to an infection. Sepsis is treated in the hospital with IV antibiotics, fluids, and other medicines. Follow these instructions at home: Medicines Take khrn-oag-stcqqnp and prescription medicines only as told by your health care provider. If you were prescribed an antibiotic medicine, take it as told by your health care provider. Do notstop using the antibiotic even if you start to feel better. General instructions Make sure you: ?Empty your bladder often and completely. Do not hold urine for long periods of time. ?Empty your bladder after sex. ?Wipe from front to back after urinating or having a bowel movement if you are female. Use each tissue only one time when you wipe. Drink enough fluid to keep your urine pale yellow. Keep all follow-up visits. This is important. Contact a health care provider if: Your symptoms do not get better after 1 2 days. Your symptoms go away and then return. Get help right away if: You have severe pain in your back or your lower abdomen. You have a fever or chills. You have nausea or vomiting. Summary A urinary tract infection (UTI) is an infection of any part of the urinary tract, which includes the kidneys, ureters, bladder, and urethra. Most urinary tract infections are caused by bacteria in your genital area. Treatment for this condition often includes antibiotic medicines. If you were prescribed an antibiotic medicine, take it as told by your health care provider. Do notstop using the antibiotic even if you start to feel better. Keep all follow-up visits. This is important. This information is not intended to replace advice given to you by your health care provider. Make sure you discuss any questions you have with your health care provider. Document Revised: 09/16/2020 Document Reviewed: 09/16/2020 [employer] Patient Education 2022 [employer] Follow Up Care 10/15/2022 17:17:22 With:SHAIKH THOMPSON Address:Unknown When: Unknown [facility] 08-28-2023 Evaluation + Plan note Diagnostic Tests Pending * Urine Culture 10/15/22 [facility]08-23-2023 Evaluation note* Diagnosis Stage 3 chronic kidney disease, unspecified whether stage 3a or 3b CKD (HCC)- Primary Tobacco abuse Tobacco use disorder Hypertension, renal disease Unspecified hypertensive kidney disease with chronic kidney disease stage I through stage IV, or unspecified Mixed hyperlipidemia Atrophic kidney, acquired Renal sclerosis, unspecified documented in this encounter [facility]08-22-2023 NoteHNO ID: [id number] Author: Rosie Harris DO Service: ? Author Type: Physician Type: Progress Notes Filed: 10/09/2022 5:08 PM Note Text: [facility] NEPHROLOGY AND HYPERTENSION [facility] SERVICE DATE: 10/09/2022 SERVICE TIME: 3:34 PM CHIEF COMPLAINT: Follow up for CKD HPI: Ms. Hernandez is a 62 year old female who presents for follow up of CKD. She has a PMHx of CKD stage 3b, CAD, HTN, tobacco use. Prior hospitalization July 2021 for urosepsis/pyelonephritis. At that time, she was found to have a Scr of 1.9. This gradually improved during her hospitalization went down to 1.1 prior to discharge. Follow up lab work in Mar 2022 showed Scr of 1.3 and later on in May 2022 up to 1.58 (eGFR 40). There was concern for CKD by PCP so sent for initial evaluation in July 2022. UPCR during hospitalization 1.3 g/g, more recently 0.12g/g in May. No personal hx of diabetes. HTN and CAD that is currently being managed by her PCP. Was on lisinopril-HCTZ 12.5/10, metoprolol 100 mg BID. BP readings at home generally 110-130 systolic, later found to be lower in office visit in July to 90-100 without signs of othostasis despite vitals. Lisinopril decreased to 10 mg once daily. No family hx of CKD, ESRD, hearing loss. 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 No prior imaging of her kidneys. PAST MEDICAL HISTORY: ACTIVE PROBLEM LIST Hypercholesteremia Tobacco Abuse History of Endometrial Ablation Erythrocytosis Stage 3 Chronic Kidney Disease (Hcc) Hypertension, Renal Disease Mixed Hyperlipidemia MEDICATIONS: aspirin, enteric coated (ASPIRIN, ENTERIC COATED) 81 mg EC tablet 81 mg. metoprolol succinate ER (TOPROL XL) 100 mg Take 100 mg by mouth. atorvastatin (LIPITOR) 40 mg tablet VENTOLIN HFA 90 mcg/actuation inhaler lisinopril (ZESTRIL) 5 mg tablet Take 1 tablet by mouth once daily. ALLERGIES: ALLERGIES Allergen Reactions Codeine Swelling REVIEW OF SYSTEMS: Constitutional: No complaints Cardiovascular: No complaints Genitourinary: No complaints PHYSICAL EXAM: BP 91/60 (BP Site: Left Arm, BP Position: Sitting, BP Cuff Size: Regular Adult) Pulse 60 Temp 36.4 ?C (97.5 ?F) (Oral) Ht 157.5 cm (5' 2 ) Wt 71.3 kg (157 lb 1.6 oz) BMI 28.73 kg/m? BP - standardized method Pulse 1 BP #1: 90/61 Pulse #1: 59 beats/min 2 BP #2 : 90/59 Pulse #2 : 62 beats/min 3 BP #3 : 95/61 Pulse #3 : 61 beats/min Average Average BP: 91/60 Average Pulse: 60 beats/min Orthostatic vitals Supine Sitting Standing Standing BP : 100/67 Standing pulse : 65 BP cuff location BP cuff location: Left upper arm BP cuff size BP cuff size: regular adult Comments for BP values First BP (right) First BP (left) Constitutional:No acute distress, Responsive, Normal habitus, and Well-nourished Neck:Trachea midline No jugular venous distension Cardiovascular:No peripheral edema Regular rate and ryhthm, normal S1 and S2, no murmurs, rubs, or gallops Respiratory:Normal respiratory effort. Lungs clear bilaterally. Abdomen: non-distended Psychiatric: Alert and oriented x self, place, time, and setting Normal mood/affect DATA: Diagnostic tests reviewed for today's visit: Recent Labs 08/09/22 1445 COLOR Light Yellow CLARITY Clear UGLUC Negative UBILI Negative UKET Negative SPGR 1.009 UHB Negative UPH 6.0 UPROT Negative NITRITES Negative LEUKEST 75 Bonnie/uL* ASSESSMENT: 62 year old female who presents for follow up of CKD CKD Stage: 3b - Baseline Scr: 1.3-1.5 - Etiology: Possibly underlying vascular disease with a component of ZEB - SPEP without M protein - KUS: Left atrophic kidney, right kidney pelviectasis, normal PVR - TTE from July 2021 without major RV/LV dysfunction, stress test in January 2022 also unremarkable - Family Hx: None #Volume status/BP management: - Appears euvolemic on exam although vitals suggestive of orthostasis - Currently on lisinopril 10 mg OD #Electrolytes: No major issues #Acid/Base balance: No major issues # Hypertension from renal disease: See below # Smoking abuse: See below - No anemia, Hb actually increased likely iso smoking/COPD - No Vit D, calcium issues, borderline low Phos, will repeat Hyperlipidemia: CV risk factors: Atorvastatin 40 mg OD PLAN: Stressed importance of addressing risk factors for vascular disease including smoking cessation, taking atorvastatin Continue with sodium restriction of < 2.3g/day Cutting back on lisinopril to 5 mg once daily Agree Will discuss with PCP regarding cutting back on metoprolol Referral placed for smoking cessation Agree Follow up in one year SIGNATURE: Gurmeet Ojeda MD PATIENT NAME: Deysi Hernandez DATE: October 09, 2022 TIME: 3:34 PM OFFICE NUMBER: CC: PRIMARY CARE PHYSICIAN: Shaikh Donna MD Staff note: I have interview (more content not included)...[facility] 08-22-2023 Instructions* Patient Instructions* Gurmeet Ojeda MD - 10/09/2022 3:27 PM EDT The goal at this point would be to control your risk factors for vascular disease (so you need to stop smoking and continue taking atorvastatin We cut back your lisinopril to 5 mg once a day We do not recommend electrolyte solutions unless you are exercising heavily. But you can look up the oral rehydration solution (ORS) on the WHO website if needed Follow up with us in one year We also placed a referral to smoking cessation program [facility] History of Present illness Narrative* Rosie Harris DO - 10/09/2022 2:32 PM EDT [facility] NEPHROLOGY & HYPERTENSION [facility] SERVICE DATE: 10/09/2022 SERVICE TIME: 3:34 PM CHIEF COMPLAINT: Follow up for CKD HPI: Ms. Hernandez is a 62 year old female who presents for follow up of CKD. She has a PMHx of CKD stage 3b, CAD, HTN, tobacco use. Prior hospitalization July 2021 for urosepsis/pyelonephritis. At that time, she was found to have aScr of 1.9. This gradually improved during her hospitalization went down to 1.1 prior to discharge.Follow up lab work in Mar 2022 showed Scr of 1.3 and later on in May 2022 up to 1.58 (eGFR 40). There was concern for CKD by PCP so sent for initial evaluation in July 2022. UPCR during hospitalization 1.3 g/g, more recently 0.12g/g in May. No personal hx of diabetes. HTN and CAD that is currently being managed by her PCP. Was on lisinopril-HCTZ 12.5/10, metoprolol 100 mg BID. BP readings at home generally 110-130 systolic, later found to be lower in office visit in July to 90-100 without signs of othostasis despite vitals. Lisinoprildecreased to 10 mg once daily. No family hx of CKD, ESRD, hearing loss. 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 No prior imaging of her kidneys. PAST MEDICAL HISTORY: ACTIVE PROBLEM LIST Hypercholesteremia Tobacco Abuse History of Endometrial Ablation Erythrocytosis Stage 3 Chronic Kidney Disease (Hcc) Hypertension, Renal Disease Mixed Hyperlipidemia MEDICATIONS: aspirin, enteric coated (ASPIRIN, ENTERIC COATED) 81 mg EC tablet 81 mg. metoprolol succinate ER (TOPROL XL) 100 mg Take 100 mg by mouth. atorvastatin (LIPITOR) 40 mg tablet VENTOLIN HFA 90 mcg/actuation inhaler lisinopril (ZESTRIL) 5 mg tablet Take 1 tablet by mouth once daily. ALLERGIES: ALLERGIES Allergen Reactions Codeine Swelling REVIEW OF SYSTEMS: Constitutional: No complaints Cardiovascular: No complaints Genitourinary: No complaints PHYSICAL EXAM: BP 91/60 (BP Site: Left Arm, BP Position: Sitting, BP Cuff Size: Regular Adult) Pulse 60 Temp 36.4 C (97.5 F) (Oral) Ht 157.5 cm (5' 2 ) Wt 71.3 kg (157 lb 1.6 oz) BMI 28.73 kg/m BP - standardized method Pulse 1 BP #1: 90/61 Pulse #1: 59 beats/min 2 BP #2 : 90/59 Pulse #2 : 62 beats/min 3 BP #3 : 95/61 Pulse #3 : 61 beats/min Average Average BP: 91/60 Average Pulse: 60 beats/min Orthostatic vitals Supine Sitting Standing Standing BP : 100/67 Standing pulse : 65 BP cuff location BP cuff location: Left upper arm BP cuff size BP cuff size: regular adult Comments for BP values First BP (right) First BP (left) Constitutional:No acute distress, Responsive, Normal habitus, and Well-nourished Neck:Trachea midline No jugular venous distension Cardiovascular:No peripheral edema Regular rate and ryhthm, normal S1 and S2, no murmurs, rubs, or gallops Respiratory:Normal respiratory effort. Lungs clear bilaterally. Abdomen: non-distended Psychiatric: Alert and oriented x self, place, time, and setting Normal mood/affect DATA: Diagnostic tests reviewed for today's visit: Recent Labs 08/09/22 1445 COLOR Light Yellow CLARITY Clear UGLUC Negative UBILI Negative UKET Negative SPGR 1.009 UHB Negative UPH 6.0 UPROT Negative NITRITES Negative LEUKEST 75 Bonnie/uL* ASSESSMENT: 62 year old female who presents for follow up of CKD CKD Stage: 3b - Baseline Scr: 1.3-1.5 - Etiology: Possibly underlying vascular disease with a component of ZEB - SPEP without M protein - KUS: Left atrophic kidney, right kidney pelviectasis, normal PVR - TTE from July 2021 without major RV/LV dysfunction, stress test in January 2022 also unremarkable - Family Hx: None #Volume status/BP management: - Appears euvolemic on exam although vitals suggestive of orthostasis - Currently on lisinopril 10 mg OD #Electrolytes: No major issues #Acid/Base balance: No major issues # Hypertension from renal disease: See below # Smoking abuse: See below - No anemia, Hb actually increased likely iso smoking/COPD - No Vit D, calcium issues, borderline low Phos, will repeat Hyperlipidemia: CV risk factors: Atorvastatin 40 mg OD PLAN: Stressed importance of addressing risk factors for vascular disease including smoking cessation, taking atorvastatin Continue with sodium restriction of < 2.3g/day Cutting back on lisinopril to 5 mg once daily Agree Will discuss with PCP regarding cutting back on metoprolol Referral placed for smoking cessation Agree Follow up in one year SIGNATURE: Gurmeet Ojeda MD PATIENT NAME: Deysi Hernandez DATE: October 09, 2022 TIME: 3:34 PM OFFICE NUMBER: CC: PRIMARY CARE PHYSICIAN: Shaikh Donna MD Staff note: I have interviewed and/or examined this patient and agree with the trainees findings, impressions, and plan. Rosie Harris DO documented in [facility] NotePatient Outreach (KIDMMN) DEYSI HERNANDEZ ([id number]) 1960 F Date Time Provider Department 10/09/22 ROSIE HARRIS During your visit today, we recorded the following information about you: Allergies As of Date: 10/09/2022 Noted Allergy Reaction CODEINE 09/07/2014 7 - Swelling Date Reviewed: 10/09/2022 Reviewed by: Rosie Harris DO - Fully Assessed Visit Diagnosis:Screening for genitourinary condition [Z13.89] Order(s):URINALYSIS, REFLEX MICROSCOPIC [ELZ1202] Order #: [id number]. #:[id number] Prescriptions as of 10/12/2022 - lisinopril (ZESTRIL) 5 mg tablet Take 1 tablet by mouth once daily. - aspirin, enteric coated (ASPIRIN, ENTERIC COATED) 81 mg EC tablet 81 mg. - metoprolol succinate ER (TOPROL XL) 100 mg Take 100 mg by mouth. - atorvastatin (LIPITOR) 40 mg tablet - VENTOLIN HFA 90 mcg/actuation inhaler Problem List As Of Date 10/09/2022 Noted Resolved Hypercholesteremia [E78.00] 09/07/2014 Tobacco abuse [Z72.0] 09/07/2014 History of endometrial ablation [Z98.890] 02/08/2016 Erythrocytosis [D75.1] 03/14/2016 Encounter for screening for malignant neoplasm *03/27/2016 10/09/2022 Stage 3 chronic kidney disease (HCC) [N18.30] 10/09/2022 Hypertension, renal disease [I12.9] 10/09/2022 Mixed hyperlipidemia [E78.2] 10/09/2022 Encounter Status:Closed by COZeroDIANDRA on 10/12/22[facility] 08-23-2022 NoteHNO ID: [id number] Author: Carine Farris RDMS Service: ? Author Type: Technologist Type: Progress Notes Filed: 08/23/2022 2:26 PM Note Text: Radiology Service Progress Note PATIENT NAME: Deysi Hernandez DATE OF SERVICE: August 23, 2022 TIME: 2:23 PM PATIENT IDENTITY VERIFICATION COMPLETED USING TWO (2) IDENTIFIERS: Name and Date of confirmed by patient verbally and Name and Date of confirmed by identification band. FALL SCREENING: Has the patient had 2 falls in the last year or 1 fall with injury or currently using an Ambulatory Assistive Device (Walker, Cane, Wheelchair, Crutches, etc.)? No PATIENT GENDER DATA: Female. status: Unknown status: N/A PATIENT RELEVANT IMPLANT DATA REVIEWED: Not Applicable RADIOLOGY DEPARTMENT: Ultrasound PERIPHERAL IV DATA: Not applicable SIGNED BY: Carine Farris RDMS August 23, 2022 2:23 [id number] NoteHNO ID: [id number] Author: Debra Fishman MD Service: ? Author Type: Physician Type: Progress Notes Filed: 08/09/2022 7:02 PM Note Text: [facility] NEPHROLOGY AND HYPERTENSION [facility] SERVICE DATE: 08/09/2022 SERVICE TIME: 3:35 PM REASON FOR CONSULT: I am asked to see this patient in consultation for my opinion regarding CKD. My recommendations will be communicated by way of shared medical record, fax, or mail. REQUESTING PHYSICIAN: Shaikh Thompson MD PRIMARY CARE PHYSICIAN: Shaikh Donna MD CHIEF COMPLAINT: CKD HPI: Ms. Hernandez is a 62 year old female who presents with a PMHx of CAD, HTN, tobacco use who is presenting to establish care for CKD. The patient was hospitalized [facility] July 2021 for urosepsis/pyelonephritis. At that time, she was found to have a Scr of 1.9. This gradually improved and her Scr during her hospitalization went down to 1.1 prior to discharge. Follow up lab work in Mar 2022 showed Scr of 1.3 and later on in May 2022 up to 1.58 (eGFR 40). There was concern for CKD by PCP so sent for evaluation. UPCR during hospitalization 1.3 g/g, more recently 0.12g/g in May. She was unaware of any abnormal labs prior to last July. No personal hx of diabetes. She does have HTN and CAD that is currently being managed by her PCP. On lisinopril-HCTZ 12.5/10, metoprolol 100 mg BID. BP readings at home generally 110-130 systolic. In more recent readings from this week she has had a decrease in the overall trend to 90-100. Denies signs of orthostasis during todays visit despite vital signs. No family hx of CKD, ESRD, hearing loss. 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 No prior imaging of her kidneys PAST MEDICAL HISTORY: PAST MEDICAL HISTORY Diagnosis Date Anemia, unspecified Anemia NOS Dysmenorrhea Excessive or frequent menstruation Heavy periods PAST SURGICAL HISTORY: PAST SURGICAL HISTORY Procedure Laterality Date ENDOMETRIAL ABLTJ THERMAL W/O HYSTEROSCOPIC GUID PAST SURGICAL HISTORY OF 01/2010 endometrial ablation for menorrhagia FAMILY HISTORY: FAMILY HISTORY Problem Relation Age of Onset Heart Father Thyroid Sister Hypertension Sister SOCIAL HISTORY: Social History Tobacco Use Smoking status: Former Packs/day: 1.00 Types: Cigarettes Quit date: 08/18/2017 Years since quittin.9 Smokeless tobacco: Never Substance Use Topics Alcohol use: Yes Drug use: No MEDICATIONS: aspirin, enteric coated (ASPIRIN, ENTERIC COATED) 81 mg EC tablet 81 mg. lisinopril-hydroCHLOROthiazide (ZESTORETIC) 10-12.5 mg per tablet lisinopril Refills(s) 0 Start Date: 04/11/22 Status: Ordered metoprolol succinate ER (TOPROL XL) 100 mg Take 100 mg by mouth. atorvastatin (LIPITOR) 40 mg tablet VENTOLIN HFA 90 mcg/actuation inhaler ALLERGIES: ALLERGIES Allergen Reactions Codeine Swelling REVIEW OF SYSTEMS: Constitutional: No complaints Eyes: No complaints Ear, Nose, and Throat: No complaints Cardiovascular: No complaints Respiratory: No complaints Gastrointestinal: No complaints Genitourinary: No complaints Musculoskeletal: No complaints Skin: No complaints Neurological: No complaints Hematologic/Lymph:No complaints PHYSICAL EXAM: BP 98/64 (BP Site: Left Arm, BP Position: Sitting, BP Cuff Size: Regular Adult) Pulse 65 Temp 36.5 ?C (97.7 ?F) (Oral) Ht 157.5 cm (5' 2 ) Wt 72.5 kg (159 lb 14.4 oz) BMI 29.25 kg/m? BP - standardized method Pulse 1 BP #1: 100/63 Pulse #1: 67 beats/min 2 BP #2 : 92/61 Pulse #2 : 66 beats/min 3 BP #3 : 101/66 Pulse #3 : 62 beats/min Average Average BP: 98/64 Average Pulse: 65 beats/min Orthostatic vitals Supine Sitting Standing Standing BP : 80/50 Standing pulse : 71 BP cuff location BP cuff location: Left upper arm BP cuff size BP cuff size: regular adult Comments for BP values First BP (right) First BP (Right): 92/67 First BP (left) First BP (Left): 102/67 Constitutional: No acute distress, Responsive, Normal habitus, and Well-nourished Eyes: Conjunctiva clear Ear, Nose, and Throat: Hearing normal and Lips normal Neck:Trachea midline No jugular venous distension Cardiovascular:No peripheral edema Regular rate and ryhthm, normal S1 and S2, no murmurs, rubs, or gallops Respiratory: Normal respiratory effort. Lungs clear bilaterally. Abdomen:Soft, non-tender, non-distended. Normal bowel sounds. Musculoskeletal: No clubbing or cyanosis of digits. and Normocephalic. Neurologic:Normal sensation Psychiatric: Alert and oriented x self, place, time, and setting Normal mood/affect DATA: Diagnostic tests reviewed for today's visit: Recent Labs 08/09/22 1445 COLOR Light Yellow CLARITY Clear UGLUC Negative UBILI Negative UKET Negative SPGR 1.009 UHB Negative UPH 6.0 UPROT Negative NITRITES Negative LEUKEST 75 Bonnie/uL* ASSE (more content not included)...[facility] Instructions* Patient Instructions* Gurmeet Ojeda MD - 08/09/2022 4:08 PM EDT We recommend getting a kidney ultrasound at your earliest convenience We will change your blood pressure pill (lisinopril-HCTZ) to contain only lisinopril 10 mg Continue to monitor sodium intake and make sure to limit to 2 grams per day Please cut back on smoking with a goal to stop smoking at some point as this can worsen kidney function over time Continue to measure your blood pressure at home once a day in the morning as discussed during your visit We have ordered blood work, please have the tests done at your earliest convenience documented in this [facility] History of Present illness Narrative* Debra Fishman MD - 08/09/2022 3:17 PM EDT [facility] NEPHROLOG[facility]YPERTENSION [facility] SERVICE DATE: 08/09/2022 SERVICE TIME: 3:35 PM REASON FOR CONSULT: I am asked to see this patient in consultation for my opinion regarding CKD. Myrecommendations will be communicated by way of shared medical record, fax, or mail. REQUESTING PHYSICIAN: Shaikh Thompson MD PRIMARY CARE PHYSICIAN: Shaikh Donna MD CHIEF COMPLAINT: CKD HPI: Ms. Hernandez is a 62 year old female who presents with a PMHx of CAD, HTN, tobacco use who ispresenting to establish care for CKD. The patient was hospitalized at [facility] July 2021 for urosepsis/pyelonephritis. At that time, she was found to have a Scr of 1.9. This gradually improved and her Scrduring her hospitalization went down to 1.1 prior to discharge. Follow up lab work in Mar 2022 showed Scr of 1.3 and later on in May 2022 up to 1.58 (eGFR 40). There was concern for CKD by PCP so sent for evaluation. UPCR during hospitalization 1.3 g/g, more recently 0.12g/g in May. She was unaware of any abnormal labs prior to last July. No personal hx of diabetes. She does have HTN and CAD that is currently being managed by her PCP. On lisinopril-HCTZ 12.5/10, metoprolol 100 mg BID. BP readings at home generally 110-130 systolic. In more recent readings from this week she has had a decrease in the overall trend to 90-100. Denies signs of orthostasis during todays visit despite vital signs. No family hx of CKD, ESRD, hearing loss. 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 No prior imaging of her kidneys PAST MEDICAL HISTORY: PAST MEDICAL HISTORY Diagnosis Date Anemia, unspecified Anemia NOS Dysmenorrhea Excessive or frequent menstruation Heavy periods PAST SURGICAL HISTORY: PAST SURGICAL HISTORY Procedure Laterality Date ENDOMETRIAL ABLTJ THERMAL W/O HYSTEROSCOPIC GUID PAST SURGICAL HISTORY OF 01/2010 endometrial ablation for menorrhagia FAMILY HISTORY: FAMILY HISTORY Problem Relation Age of Onset Heart Father Thyroid Sister Hypertension Sister SOCIAL HISTORY: Social History Tobacco Use Smoking status: Former Packs/day: 1.00 Types: Cigarettes Quit date: 08/18/2017 Years since quittin.9 Smokeless tobacco: Never Substance Use Topics Alcohol use: Yes Drug use: No MEDICATIONS: aspirin, enteric coated (ASPIRIN, ENTERIC COATED) 81 mg EC tablet 81 mg. lisinopril-hydroCHLOROthiazide (ZESTORETIC) 10-12.5 mg per tablet lisinopril Refills(s) 0 Start Date: 04/11/22 Status: Ordered metoprolol succinate ER (TOPROL XL) 100 mg Take 100 mg by mouth. atorvastatin (LIPITOR) 40 mg tablet VENTOLIN HFA 90 mcg/actuation inhaler ALLERGIES: ALLERGIES Allergen Reactions Codeine Swelling REVIEW OF SYSTEMS: Constitutional: No complaints Eyes: No complaints Ear, Nose, and Throat: No complaints Cardiovascular: No complaints Respiratory: No complaints Gastrointestinal: No complaints Genitourinary: No complaints Musculoskeletal: No complaints Skin: No complaints Neurological: No complaints Hematologic/Lymph:No complaints PHYSICAL EXAM: BP 98/64 (BP Site: Left Arm, BP Position: Sitting, BP Cuff Size: Regular Adult) Pulse 65 Temp 36.5 C (97.7 F) (Oral) Ht 157.5 cm (5' 2 ) Wt 72.5 kg (159 lb 14.4 oz) BMI 29.25kg/m BP - standardized method Pulse 1 BP #1: 100/63 Pulse #1: 67 beats/min 2 BP #2 : 92/61 Pulse #2 : 66 beats/min 3 BP #3 : 101/66 Pulse #3 : 62 beats/min Average Average BP: 98/64 Average Pulse: 65 beats/min Orthostatic vitals Supine Sitting Standing Standing BP : 80/50 Standing pulse : 71 BP cuff location BP cuff location: Left upper arm BP cuff size BP cuff size: regular adult Comments for BP values First BP (right) First BP (Right): 92/67 First BP (left) First BP (Left): 102/67 Constitutional: No acute distress, Responsive, Normal habitus, and Well-nourished Eyes: Conjunctiva clear Ear, Nose, and Throat: Hearing normal and Lips normal Neck:Trachea midline No jugular venous distension Cardiovascular:No peripheral edema Regular rate and ryhthm, normal S1 and S2, no murmurs, rubs, or gallops Respiratory: Normal respiratory effort. Lungs clear bilaterally. Abdomen:Soft, non-tender, non-distended. Normal bowel sounds. Musculoskeletal: No clubbing or cyanosis of digits. and Normocephalic. Neurologic:Normal sensation Psychiatric: Alert and oriented x self, place, time, and setting Normal mood/affect DATA: Diagnostic tests reviewed for today's visit: Recent Labs 08/09/22 1445 COLOR Light Yellow CLARITY Clear UGLUC Negative UBILI Negative UKET Negative SPGR 1.009 UHB Negative UPH 6.0 UPROT Negative NITRITES Negative LEUKEST 75 Bonnie/uL* ASSESSMENT: 62 year old female who presents to establish care for CKD CKD Stage: 3b - Baseline Scr: 1.3-1.5 - Etiology: Possibly underlying vascular disease with a component of ZEB - Family Hx: None #Volume status/BP management: - Appears euvolemic on exam although vitals suggestive of orthostasis - Currently on lisinopril-HCTZ 12.5/10, metoprolol 100 mg BID #Electrolytes: No issues on prior lab work #Acid/Base balance: No issues on prior lab work PLAN: Repeat RFP to follow up kidney function Check SPEP given age No evidence of proteinuria on UA, will hold off on quantifying for now Will need a KUS to assess kidney size and check for signs of obstruction given urologic symptoms Discontinue HCTZ, continue only lisinopril 10 Follow up in 3 months SIGNATURE: Gurmeet Ojeda MD PATIENT NAME: Deysi Hernandez DATE: August 09, 2022 TIME: 3:35 PM OFFICE NUMBER: CC: REFERRING PROVIDER: Shaikh Thompson MD PRIMARY CARE PHYSICIAN: Shaikh Donna MD Nephrology attending note: I have interviewed and examined this patient and agree with the resident's/fellow's/LANCE's findings,impressions, and plan. My edits in blue. Encounter Diagnosis ICD-10-CM 1. Stage 3b chronic kidney disease (HCC) N18.32 MONOCLONAL PROTEIN, SERUM (BLOOD) VITAMIN D 25 HYDROXY RENAL FUNCTION PANEL US KIDNEY/BLADDER 2. Hypertension, unspecified type I10 lisinopril (ZESTRIL) 10 mg tablet 3. Orthostatic hypotension I95.1 4. Alkalosis E87.3 5. Hypercholesteremia E78.00 -Pt with nonproteinuric CKD stage 3b with most recent creatinine 1.58 (GFR 40) in 05/2022. Etiology of CKD uncertain, possibly incompletely resolved ZEB vs. vascular disease with hypotension at present -UA bland without proteinuria or hematuria -Given hypotension's with positive orthostatics, and patient being on metoprolol, HCTZ-lisinopril, I think it would be appropriate to cut back on her anti-HTN medications: We will stop HCTZ, and continue lisinopril and metoprolol -Patient is to repeat blood work in 2 weeks to assess kidney function. We will also obtain SPEP/IFAand vitamin D at that time. We will also order kidney US -Patient advised to monitor BP at home, goal BP 120/80. She is to notify us if blood pressure remains low, or if it consistently elevated >140 mm Hg -Patient educated on correct home BP measurement techniques, handouts provided -RTC in 3 to 4 months Total time, including reviewing extensive medical records prior to patient visit, related to ongoing management of this patient, history, physical, counseling in detail with family as outlined above,and coordination of care is 65 min Voice recognition software was used in the creation of this document. There may be unintended errors in spelling, grammar, syntax or punctuation present. Debra Fishman MD Staff, Department of Kidney Medicine Pager # [phone] August 09, 2022 6:58 PM documented in [facility] NotePatient Outreach (ELPIDIO) DEYSI HERNANDEZ ([id number]) 1960 F Date Time Provider Department 08/09/22 DEBRA FISHMAN During your visit today, we recorded the following information about you: Allergies As of Date: 08/09/2022 Noted Allergy Reaction CODEINE 09/07/2014 7 - Swelling Date Reviewed: 08/09/2022 Reviewed by: Paulo Holbrook MA - Fully Assessed Visit Diagnosis:Screening for genitourinary condition [Z13.89] Order(s):URINALYSIS, REFLEX MICROSCOPIC [HZQ0639] Order #: [id number]. #:[id number] Prescriptions as of 08/13/2022 - aspirin, enteric coated (ASPIRIN, ENTERIC COATED) 81 mg EC tablet 81 mg. - metoprolol succinate ER (TOPROL XL) 100 mg Take 100 mg by mouth. - atorvastatin (LIPITOR) 40 mg tablet - VENTOLIN HFA 90 mcg/actuation inhaler - lisinopril (ZESTRIL) 10 mg tablet Take 1 tablet by mouth once daily. Problem List As Of Date 08/09/2022 Noted Resolved Hypercholesteremia [E78.00] 09/07/2014 Smoker [F17.200] 09/07/2014 History of endometrial ablation [Z98.890] 02/08/2016 Erythrocytosis [D75.1] 03/14/2016 Encounter for screening for malignant neoplasm *03/27/2016 Encounter Status:Closed by [employer] [facility] on 08/13/22[facility] 06-06-2022 Hospital Discharge instructions Patient Education 06/06/2022 11:23:32 Overactive Bladder, Adult Overactive Bladder, Adult Overactive bladder is a condition in which a person has a sudden and frequent need to urinate. A person might also leak urine if he or she cannot get to the bathroom fast enough (urinary incontinence). Sometimes, symptoms can interfere with work or social activities. What are the causes? Overactive bladder is associated with poor nerve signals between your bladder and your brain. Your bladder may get the signal to empty before it is full. You may also have very sensitive muscles thatmake your bladder squeeze too soon. This condition may also be caused by other factors, such as: Medical conditions: ?Urinary tract infection. ?Infection of nearby tissues. ?Prostate enlargement. ?Bladder stones, inflammation, or tumors. ?Diabetes. ?Muscle or nerve weakness, especially from these conditions: ?A spinal cord injury. ?Stroke. ?Multiple sclerosis. ?Parkinson's disease. Other causes: ?Surgery on the uterus or urethra. ?Drinking too much caffeine or alcohol. ?Certain medicines, especially those that eliminate extra fluid in the body (diuretics). ?Constipation. What increases the risk? You may be at greater risk for overactive bladder if you: Are an older adult. Smoke. Are going through menopause. Have prostate problems. Have a neurological disease, such as stroke, dementia, Parkinson's disease, or multiple sclerosis (MS). Eat or drink alcohol, spicy food, caffeine, and other things that irritate the bladder. Are overweight or obese. What are the signs or symptoms? Symptoms of this condition include a sudden, strong urge to urinate. Other symptoms include: Leaking urine. Urinating 8 or more times a day. Waking up to urinate 2 or more times overnight. How is this diagnosed? This condition may be diagnosed based on: Your symptoms and medical history. A physical exam. Blood or urine tests to check for possible causes, such as infection. You may also need to see a health care provider who specializes in urinary tract problems. This is called a urologist. How is this treated? Treatment for overactive bladder depends on the cause of your condition and whether it is mild or severe. Treatment may include: Bladder training, such as: ?Learning to control the urge to urinate by following a schedule to urinate at regular intervals. ?Doing Kegel exercises to strengthen the pelvic floor muscles that support your bladder. Special devices, such as: ?Biofeedback. This uses sensors to help you become aware of your body's signals. ?Electrical stimulation. This uses electrodes placed inside the body (implanted) or outside the body. These electrodes send gentle pulses of electricity to strengthen the nerves or muscles that control the bladder. ?Women may use a plastic device, called a pessary, that fits into the vagina and supports the bladder. Medicines, such as: ?Antibiotics to treat bladder infection. ?Antispasmodics to stop the bladder from releasing urine at the wrong time. ?Tricyclic antidepressants to relax bladder muscles. ?Injections of botulinum toxin type A directly into the bladder tissue to relax bladder muscles. Surgery, such as: ?A device may be implanted to help manage the nerve signals that control urination. ?An electrode may be implanted to stimulate electrical signals in the bladder. ?A procedure may be done to change the shape of the bladder. This is done only in very severe cases. Follow these instructions at home: Eating and drinking Make diet or lifestyle changes recommended by your health care provider. These may include: ?Drinking fluids throughout the day and not only with meals. ?Cutting down on caffeine or alcohol. ?Eating a healthy and balanced diet to prevent constipation. This may include: ?Choosing foods that are high in fiber, such as beans, whole grains, and fresh fruits and vegetables. ?Limiting foods that are high in fat and processed sugars, such as fried and sweet foods. Lifestyle Lose weight if needed. Do not use any products that contain nicotine or tobacco. These include cigarettes, chewing tobacco, and vaping devices, such as e-cigarettes. If you need help quitting, ask your health care provider. General instructions Take lole-iju-boznvju and prescription medicines only as told by your health care provider. If you were prescribed an antibiotic medicine, take it as told by your health care provider. Do notstop taking the antibiotic even if you start to feel better. Use any implants or pessary as told by your health care provider. If needed, wear pads to absorb urine leakage. Keep a log to track how much and when you drink, and when you need to urinate. This will help your health care provider monitor your condition. Keep all follow-up visits. This is important. Contact a health care provider if: You have a fever or chills. Your symptoms do not get better with treatment. Your pain and discomfort get worse. You have more frequent urges to urinate. Get help right away if: You are not able to control your bladder. Summary Overactive bladder refers to a condition in which a person has a sudden and frequent need to urinate. Several conditions may lead to an overactive bladder. Treatment for overactive bladder depends on the cause and severity of your condition. Making lifestyle changes, doing Kegel exercises, keeping a log, and taking medicines can help with this condition. This information is not intended to replace advice given to you by your health care provider. Make sure you discuss any questions you have with your health care provider. Document Revised: 10/24/2020 Document Reviewed: 10/24/2020 Elsevier Patient Education 2022 [employer] [facility] 04-05-2023 Hospital Discharge instructions Patient Education 05/23/2022 12:02:41 Kegel Exercises Kegel Exercises Kegel exercises can help strengthen your pelvic floor muscles. The pelvic floor is a group of muscles that support your rectum, small intestine, and bladder. In females, pelvic floor muscles also help support the womb (uterus). These muscles help you control the flow of urine and stool. Kegel exercises are painless and simple, and they do not require any equipment. Your provider may suggest Kegel exercises to: Improve bladder and bowel control. Improve sexual response. Improve weak pelvic floor muscles after surgery to remove the uterus (hysterectomy) or (females). Improve weak pelvic floor muscles after prostate gland removal or surgery (males). Kegel exercises involve squeezing your pelvic floor muscles, which are the same muscles you squeezewhen you try to stop the flow of urine or keep from passing gas. The exercises can be done while sitting, standing, or lying down, but it is best to vary your position. Exercises How to do Kegel exercises: 1.Squeeze your pelvic floor muscles tight. You should feel a tight lift in your rectal area. If youare a female, you should also feel a tightness in your vaginal area. Keep your stomach, buttocks, and legs relaxed. 2.Hold the muscles tight for up to 10 seconds. 3.Breathe normally. 4.Relax your muscles. 5.Repeat as told by your health care provider. Repeat this exercise daily as told by your health care provider. Continue to do this exercise for at least 4 6 weeks, or for as long as told by your health care provider. You may be referred to a physical therapist who can help you learn more about how to do Kegel exercises. Depending on your condition, your health care provider may recommend: Varying how long you squeeze your muscles. Doing several sets of exercises every day. Doing exercises for several weeks. Making Kegel exercises a part of your regular exercise routine. This information is not intended to replace advice given to you by your health care provider. Make sure you discuss any questions you have with your health care provider. Document Released: 01/21/2013 Document Revised: 09/24/2018 Document Reviewed: 09/24/2018 Elsevier Patient Education 2020 [employer] [facility] 02-22-2023 Hospital Discharge instructions Patient Education 04/11/2022 11:35:40 Kegel Exercises Kegel Exercises Kegel exercises can help strengthen your pelvic floor muscles. The pelvic floor is a group of muscles that support your rectum, small intestine, and bladder. In females, pelvic floor muscles also help support the womb (uterus). These muscles help you control the flow of urine and stool. Kegel exercises are painless and simple, and they do not require any equipment. Your provider may suggest Kegel exercises to: Improve bladder and bowel control. Improve sexual response. Improve weak pelvic floor muscles after surgery to remove the uterus (hysterectomy) or (females). Improve weak pelvic floor muscles after prostate gland removal or surgery (males). Kegel exercises involve squeezing your pelvic floor muscles, which are the same muscles you squeezewhen you try to stop the flow of urine or keep from passing gas. The exercises can be done while sitting, standing, or lying down, but it is best to vary your position. Exercises How to do Kegel exercises: 1.Squeeze your pelvic floor muscles tight. You should feel a tight lift in your rectal area. If youare a female, you should also feel a tightness in your vaginal area. Keep your stomach, buttocks, and legs relaxed. 2.Hold the muscles tight for up to 10 seconds. 3.Breathe normally. 4.Relax your muscles. 5.Repeat as told by your health care provider. Repeat this exercise daily as told by your health care provider. Continue to do this exercise for at least 4 6 weeks, or for as long as told by your health care provider. You may be referred to a physical therapist who can help you learn more about how to do Kegel exercises. Depending on your condition, your health care provider may recommend: Varying how long you squeeze your muscles. Doing several sets of exercises every day. Doing exercises for several weeks. Making Kegel exercises a part of your regular exercise routine. This information is not intended to replace advice given to you by your health care provider. Make sure you discuss any questions you have with your health care provider. Document Released: 01/21/2013 Document Revised: 09/24/2018 Document Reviewed: 09/24/2018 [employer] Patient Education 2020 [employer] Follow Up Care 02/28/2022 14:28:28 With:TRUDY KNOTT PA-C, URL Address: [address] [place] [address] When: Unknown [facility] 01-30-2023 Evaluation note* Encounter Date Diagnosis Assessment Notes Treatment Notes Treatment Clinical Notes Feb, Cough (ICD-10 - R05.9) Feb, Acute sinusitis, recurrence not specified, unspecified location (ICD-10 - J01.90) Sinusitis home care material was printed Drink plenty fluids, get plenty of rest. Take the prednisone as prescribed until gone. Use the Flonase inhaler as prescribed. Fill and take the amoxicillin until gone if your symptoms do not improve in 2 to 3 days. Follow-up with your doctor for further concerns Feb, Sore throat (ICD-10 - J02.9) [id number] Other [facility] [place]* Encounter Date Diagnosis Assessment Notes Treatment Notes Treatment Clinical Notes Aug, Transition of care performed with sharing of clinical summary (ICD-10 - Z91.89) ER report, labs, diagnostics, vitals, H&P, medication reconciliation and discharge summary reviewed. CHUCK resource and informational packet given. Patient appears to be physically and mentally stable at this time. Extensive education done regarding Hypertension, smoking and new stroke.. Advised on signs and symptoms to call provider or return to ED. I have ensured patient safety today and verified that patient does have a good support system. Patient does report lack of healthcare insurance stating the healthcare marketplace plans were not affordable for herself and her spouse and she is not eligible for Medicare yet. Offered our referral service program and patient is interested in speaking to someone about obtaining affordable insurance. Patient signed consent form.Patient is also able to afford all medications, including any new meds prescribed on discharge, as well as medical supplies and food. Patient is aware of all follow-up visits as scheduled and importance of keeping appointments as well as keeping established with a PCP. 30 minutes was spent with the patient/ review of documentation pertaining to the visit today. EMA Sylvester This note was completed with the assistance of voice recognition technology. Please excuse any grammatical errors that were not corrected during review. Aug, Cardioembolic stroke (ICD-10 - I63.9) Discussed risk factors of stroke as well as signs and symptoms of other stroke to be vigilant for and seek immediate medical attention if these would occur. Long discussion had regarding importance of taking medications including blood pressure medication, aspirin and cholesterol medication to decrease her risk of recurrent stroke. Aug, Nicotine dependence (ICD-10 - F17.200) Patient was previously 1 pack/day smoker prior to this illness and admission. She reports strong desire to stop smoking and believes she can do it on her own. Encourage spouse to also stop smoking and support of his spouse. Offered smoking cessation services provided at this facility and or the 1 800 quit now card given who can offer support and free patches or gum as needed.Patient was very receptive of this. Aug, Hypertension (ICD-10 - I10) Discussed importance of taking medications and following up with a PCP to monitor blood pressure and decrease need for emergency care and subsequent admissions related to complications of hypertension. Patient verbalizes understanding. Aug, Other Pharmacist v isit: Patient presented today for comprehensive medication review post-hospital discharge as part of the transition of care visit with the nurse practitioner. Patient's information as available was reviewed. At visit, patient information was updated as to medications, dosages, reason for taking, timing of taking, and start date or current length of therapy. OTC treatments, either routine or PRN were added. Problem list was updated. Patient was able to get all medications prescribed at discharge. Finished course of antibiotic, finishing course of potassium tomorrow. Patient advised that she could consider taking 1-2 blood pressure medications in the evening to lower the risk of hypotension. Patient also educated on [employer] as patient does not have prescription insurance. Advised patient on proper assessment of blood pressure at home. Time spent with patient: 10 minutes Seen by: Akil Collins, AndryD, BCACP [id number] Other 06-29-2022 Progress note Author Ricky Reynoso [facility] August 16, 2021 6:37pm Note Date/Time August 16, 2021 6:37 pm [facility] [address] [place] [address] Hospitalist Progress Note Signed Patient: Deysi Hernandez MR#: [id number] : 1960 Acct:[id number] Age/Sex: 61 / F Adm Date: 2 Loc: 3T Room: [address] [place] [address] Type : ADM IN Attending Dr: Ricky Reynoso DO Copies to: ~ Date of Service: 08/16/2021 Subjective Subjective Narrative: Patient completed KELVIN today, which was normal, and had neurology wrap-up today, where they reported showing her the small watershed infarcts on the MRI of her brain. Her blood pressure remains elevated. 185/104 right now. This was obtained while I was in the room on the automated machine. The bedside nurse reports that the best blood pressure she can get on the patient today with her own manual technique was systolic blood pressure of about 160. Patient says that all abdominal pain is gone. She denies any dysuria. No headache. No visual changes. She denies any neurologic abnormality. No chest pain or palpitations. No shortness of breath. She was actually hoping that she would be able to go home this evening on my visit. Her is at the bedside. I explained that with this elevated blood pressure and cardiology adjusting medications today I want her to stay overnight and we need to see what her bloodpressure is tomorrow. I explained that reducing stroke risk factors for her is extremely important. Exam Physical Exam Vital Signs: Temp Pulse Resp BP Pulse Ox 98.0 F 86 16 185/104 H 93 L 08/16/21 13:34 08/16/21 16:33 08/16/21 16:33 08/16/21 18:25 08/16/21 16:33 Narrative: General: Awake, alert, sitting up on the bedside. Does not hold still for the blood pressure machine to take her blood pressure. Accompanied with her husbandat the bedside and 2 family friends. These add to her physiologic excitement. Neuro: She looks very neurologically sharp and intact however there are slight deficits still present. Cardiac: Regular rate and rhythm auscultation. No rubs or gallops. Pulmonary: Entirely clear to auscultation throughout. No wheezing, rhonchi,'s or crackles. Rib cage: Negative Tima's punch all over so I cannot reproduce any nephrologic discomfort at this time. GI: Abdomen soft, nontender, normal bowel sounds. Extremities: No swelling or cords or knots in the calves bilaterally. Objective Lab Results CBC & Chem 7: 08/16/21 06:26 08/16/21 06:26 Microbiology Results Microbiology 08/14/21 16:38 Blood - Right Hand Blood Culture - Preliminary No Growth 2 Days 08/14/21 16:35 Blood - Left Hand Blood Culture - Preliminary No Growth 2 Days 08/13/21 10:49 Blood - Left Hand Blood Culture - Preliminary No Growth 3 Days 08/13/21 10:46 Blood - Right Antecubital Blood Culture - Preliminary No Growth 3 Days Meds Allergies and Active Meds Allergies No Known Allergies Allergy (Verified 08/13/21 10:38) Active Meds: Active Medications Generic Name Dose Route Start Last Admin Trade Name Freq PRN Reason Stop Dose Admin Acetaminophen 650 mg 08/13/21 22:02 08/15/21 23:38 Acetaminophen 325 Mg Tablet PO 08/13/22 22:01 650 mg Q6H PRN Administration Pain Amlodipine Besylate 10 mg 08/16/21 09:00 08/16/21 08:12 Amlodipine 10 Mg Tablet PO 08/16/22 08:59 10 mg DAILY ESTEBAN Administration Aspirin 81 mg 08/13/21 13:35 08/16/21 08:12 Aspirin 81 Mg Tablet.Dr PO 08/13/22 13:34 81 mg DAILY ESTEBAN Administration Atorvastatin Calcium 40 mg 08/14/21 21:00 08/15/21 21:23 Atorvastatin 40 Mg Tablet PO 08/14/22 20:59 40 mg QPM ESTEBAN Administration Benzocaine 1 applic 08/16/21 15:00 Benzocaine 20% [place] 57 Gm Can MUCOUS MEM ONCE PRN KELVIN Procedure Heparin Sodium (Porcine) 5,000 unit 08/13/21 21:00 08/16/21 16:35 Heparin 5,000 Unit/Ml Vial SUBCUT 08/13/22 20:59 Not Given Q12HR ESTEBAN Hydralazine HCl 10 mg 08/13/21 10:03 08/16/21 16:55 Hydralazine 20 Mg/Ml Vial IV-PUSH 08/13/22 10:02 10 mg Q4H PRN Administration Hypertension Ceftriaxone Sodium 1 gm in 50 mls @ 100 mls/hr 08/13/21 11:00 08/16/21 14:01 Rocephin IV 100 mls/hr Q24H ESTEBAN Administration Lidocaine HCl 15 ml 08/16/21 15:00 Lidocaine 2% Viscous 15 Ml Udc MUCOUS MEM ONCE PRN KELVIN Procedure Metoprolol Succinate 100 mg 08/17/21 09:00 Metoprolol Succinate 100 Mg Tab.Er.24h PO 08/17/22 08:59 DAILY ESTEBAN Pantoprazole Sodium 40 mg 08/14/21 09:00 08/16/21 08:13 Pantoprazole 40 Mg Vial IV-PUSH 08/14/22 08:59 40 mg DAILY ESTEBAN Administration Potassium Chloride 40 meq 08/13/21 10:56 08/14/21 08:11 Potassium Chloride Er 20 Meq Tab.Er.Prt PO 08/13/22 10:55 40 meq DAILY PRN Administration Hypokalemia Propofol 0 mg 08/16/21 15:00 Propofol 200 Mg/20 Ml Vial IV-PUSH ONCE PRN KELVIN Procedure Sodium Chloride 10 ml 08/13/21 10:14 Sodium Chloride 0.9 % 10 Ml Syringe IV-PUSH 08/13/22 10:13 PRN PRN Flush Sodium Chloride 10 ml 08/14/21 09:00 08/16/21 08:13 Sodium Chloride 0.9 % 10 Ml Vial.Pf INJECTION 08/14/22 08:59 10 ml DAILY ESTEBAN Administration Sodium Chloride 10 ml 08/14/21 09:00 08/16/21 08:13 Sodium Chloride 0.9 % 10 Ml Syringe IV-PUSH 08/14/22 08:59 10 ml DAILY ESTEBAN Administration Sodium Chloride 0 ml 08/15/21 15:25 08/16/21 15:26 Sodium Chloride 0.9 % 10 Ml Syringe IV-PUSH 08/15/22 15:24 20 ml PRN PRN Administration Flush A&P - Hospitalist Assessment/Plan (1) Pyelonephritis: (2) Embolic stroke: (3) Delirium: (4) Hypertensive urgency: (5) Elevated troponin: Plan Pyelonephritis : Urine culture and blood culture remain negative so far, patientdid have leukocytosis today which is could be reactive, repeat blood culture have been pending, urine culture at [place] showed mixed zoe, since patient presented with symptoms of pyelonephritis did improve with antibiotics, will continue antibiotics for now, monitor cultures, Sepsis secondary to above Hypertensive urgency : Patient has been getting hypertensive likely secondary toleg agitation and anxiety, on Lopressor, started on Norvasc, dose increased, also on hydralazine as needed for blood pressure above 160, patient does not take any medications at home , renin aldosterone level pending, Acute metabolic encephalopathy: Likely due to hypertensive encephalopathy and acute watershed tiny multi embolic stroke. ZEB, no previous creatinine known; now creatinine improved to 1.35 today, Troponin elevation likely secondary to type II myocardial infarction: Patient did have some ST depression in the inferior leads, no history of previous CAD, patient denies any chest pain, cardiology consulted, patient will need ischemic evaluation once otherwise determined to be appropriate per cardiology consulted. DVT prophylaxis with SCD's and now early ambulation. PT OT Documented By: Ricky Reynoso DO [id number] Signed By: <Electronically signed by Ricky Reynoso DO> 08/16/211836 [facility] Work Phone: [phone] Progress note Author Rober Wyatt [facility] August 16, 2021 5:13pm Note Date/Time August 16, 2021 8:17 am [facility] [address] [place] [address] Neurology Progress Note Signed Patient: Deysi Hernandez MR#: [id number] : 1960 Acct:[id number] Age/Sex: 61 / F Adm Date: 2 Loc: Room: [address] [place] [address] Type : ADM IN Attending Dr: Ricky Reynoso DO Copies to: ~ Date of Service: 08/16/2021 Subjective Subjective Narrative: She is anxious about the KELVIN which is scheduled for this afternoon. Reviewed herMRI and pulled up pictures for her to look at. This does seem to decrease her anxiety as we talked about stroke and prognosis. She denies any focal symptoms. She denies confusion or hallucinations. Denies any new symptoms. Review of Systems Cardiovascular Cardiovascular: Denies chest pain and Denies palpitations Respiratory Respiratory: Denies dyspnea Gastrointestinal Gastrointestinal: Denies nausea Neurologic Neurologic: Denies abnormal speech, Denies confusion, Denies localized weakness,Denies headache(s), Denies lack of coordination, Denies paresthesias and Denies tremor(s) Psychiatric Psychiatric: Reports anxiety Exam Physical Exam Vital Signs: Temp Pulse Resp BP Pulse Ox 98.4 F 93 H 18 173/87 H 95 08/16/21 03:59 08/16/21 03:59 08/16/21 03:59 08/16/21 03:59 08/16/21 03:59 Narrative: GENERAL EXAM: * Constitutional - Patient appears well nourished and well groomed * Patient is alert and oriented x3. * Right carotid bruit NEURO EXAM: * Attention span/concentration normal * Speech is clear and fluent * Cranial nerve II. Vision is intact. CLEMENT * Cranial nerve III, IV and . Extraocular muscles are intact. No nystagmus is appreciated * Cranial nerve V and VII. No facial asymmetry is appreciated. Temperature and pinprick is equal bilaterally * Cranial nerve VIII hearing is intact * Cranial nerve IX and X speech is clear fluent. Palate elevates symmetrically * Cranial nerve XI head turn side to side full range of motion. Shoulder shrug is equal bilaterally * Cranial nerve XII tongue is midline full range of motion MOTOR EXAM: * Strength is 5/5 throughout. No pronator drift was appreciated * Muscle tone and bulk are normal * Gait normal SENSORY EXAM: * Temperature, pinprick, vibration are intact in all 4 extremities and symmetric CEREBELLAR EXAM: * [id number] and alternating movements are intact and normal in bilateral upper extremities * Cbuc-mb-xccn and alternating movements are intact and normal in lower extremities REFLEX EXAM: * 3/4 throughout. She does have cross abductor bilaterally. No Augustina or clonus was appreciated Objective Vital Signs Vital Signs: Vital Signs - 24 hr 08/15/21 11:17 08/15/21 16:00 08/15/21 21:19 Temperature 98.0 F 98.0 F 98.2 F Pulse Rate 90 90 90 Respiratory Rate 18 20 20 Blood Pressure 172/99 H 173/98 H 184/103 H 02 Sat by Pulse Oximetry 95 95 94 L 08/15/21 23:40 08/16/21 03:59 Temperature 98.0 F 98.4 F Pulse Rate 99 H 93 H Respiratory Rate 18 18 Blood Pressure 176/95 H 173/87 H 02 Sat by Pulse Oximetry 94 L 95 Labs CBC & Chem 7: 08/16/21 06:26 08/16/21 06:26 Lab Results: 08/14/21 22:17: Hemoglobin A1c 6.0 H Therapy Recommendations Therapy Recommendations: OT Recommendations OT Recommended Discharge Home Location PT Recommendations DC Physical Therapy Due To: No Skilled PT Needs,At Baseline PT Recommended Discharge Home Location ST Recommendations Liquid Consistency Thin Liquids Recommendation Solid Consistency Regular Solids Recommendations Meat Consistency Whole Meats Recommendations Medication Administration Whole Pills,Give Pills with Water Dysphagia Swallow Precautions/ Sitting Upright (90 deg) Strategies Assessment/Plan (1) Pyelonephritis: Code(s): N12 - Tubulo-interstitial nephritis, not specified as acute or chronic Status: Acute (2) Hypertensive urgency: Code(s): I16.0 - Hypertensive urgency Status: Acute (3) Altered mental status: Code(s): R41.82 - Altered mental status, unspecified Status: Acute (4) Delirium: Code(s): R41.0 - Disorientation, unspecified Status: Acute (5) Embolic stroke: Code(s): I63.9 - Cerebral infarction, unspecified Status: Acute Plan Patient is a 61-year-old female with no significant medical history other than tobacco use which she reportedly quit smoking about a week prior to hospitalization. Patient presented to the emergency room at [facility] with abdominal pain and was noted to have acute kidney injury and evidence of pyelonephritis and elevated troponin with EKG changes. She was transferred to [facility] for further evaluation. She is on antibiotics. She has been seen by cardiology was started beta-blockers and statins and recommends further evaluation once her infection is treated. Yesterday she developed increased confusion and hallucinations and stroke alert was called. CT scan of the head was nonacute. Stroke risk factors include hypertension, hyperlipidemia, and tobacco use. She will have an MRI scan of thebrain to exclude acute intracranial pathology. However, this is likely metabolic encephalopathy due to infection as well as hypertensive encephalopathywith persistently elevated blood pressures in the 180s to over 200 systolic as high as 126 diastolic. PRES is a consideration. 1. CT scan head nonacute. MRI shows punctate foci of diffusion restriction predominantly along the MARLINE/MCA watershed territories bilaterally, right greaterthan the left. Chronic microvascular ischemic changes. 2. MRA of the head- Narrowing of the junction of the petrous and cavernous segments of the left ICA. No focal stenosis, occlusion, aneurysmal dilatation otherwise 3. Carotid ultrasound is pending 4. Echocardiogram showed EF of 45% with moderate inferior lateral wall hypokinesis. EKG shows left ventricular hypertrophy with nonspecific ST?T abnormalities, prolonged QT and T wave inversion less evident in anterior leads from admission. Cardiac troponin improved to 50. KELVIN pending. Cardiology is following 5. Hypokalemia. Potassium 3.0. Primary will replete as necessary 6. Acute kidney injury improving. BUN now normal. Creatinine improved from 1.84- 1.35. Urinalysis abnormal. Urine culture negative at 2 days. She is on ceftriaxone per primary team 7. Leukocytosis. UTI as above. Blood cultures negative at 1 day. Repeat cultures are pending. Chest x-ray shows presumed chronic interstitial changes with no acute process. She is afebrile 8. Hemoglobin A1c is 6.0 9. AST 47, ALT 57, alkaline phosphate 76 10. LDL 176, total cholesterol 259, triglyceride 164, HDL 50. She has been started on a statin 11. Baby aspirin 81 mg initiated 12. Aggressive management of hypertension. Systolic blood pressure overnight between 172 and 202. Diastolic as high as 116. Amlodipine increased. She is also on metoprolol 13. Thrombotic risk panel pending 14. Will follow Attestation Statement I agree with the above. Patient seen and examined. Transthoracic echocardiogram is without any obvious source of embolization and there is no evidence of flow across the intra-atrial septum. Okay for discharge from my standpoint. She will need the cardiac event monitor after discharge. We have thrombotic risk profile lab work pending. Follow-up with neurology as an outpatient. Documented By: LESLEY Bustillo [id number] Signed By: <Electronically signed by LESLEY Hamm> 08/16/21 1020 <Electronically signed by Rober Wyatt DO> 08/16/21 [id number] [facility] Work Phone: [phone] Progress note Author Marquez Beal [facility] August 16, 2021 10:47am Note Date/Time August 16, 2021 10:4 4am [facility] [address] [place] [address] Cardiology Progress Note Signed Patient: Deysi Hernandez MR#: [id number] : 1960 Acct:[id number] Age/Sex: 61 / F Adm Date: 2 Loc: Room: 7U2274-7 Type : ADM IN Attending Dr: Ricky Reynoso DO Copies to: ~ Date of Service: 08/16/2021 Subjective Principal diagnosis: Abnormal EKG Interval history: Patient improving from a neurologic standpoint. Memory is improved. She understands the reason appropriate for the transesophageal echo. We discussed her management. Because she has some renal impairment, believed guillaume on the basis of acute infection, we are holding off on evaluating her for coronary disease. She has been stable with no angina and her troponin rise, on admission, was trivial. EKG changes were also suggestive of disease but have normalized. Because of this we will focus on blood pressure control and optimize pharmacologic therapy for presumed coronary disease. We will await several weeks until after her infection is resolved before we proceed with evaluating her for coronary disease. Exam Physical Exam Vital Signs: Temp Pulse Resp BP Pulse Ox 98.3 F 86 16 192/104 H 95 08/16/21 08:11 08/16/21 08:11 08/16/21 08:11 08/16/21 08:11 08/16/21 08:11 HEENT Head: normal to inspection Ears: hearing grossly normal bilaterally Nose: external nose normal and nares normal Face and sinus: normal facial exam Mouth: oral mucosae normal and tongue normal Eyes Conjunctivae: conjunctivae normal Sclera: sclerae normal Neck Neck: normal visual inspection Carotids: normal carotid upstroke Lymphatic: no lymphadenopathy noted Chest Chest palpation & inspection: normal inspection of the chest Resp Effort & Inspection: normal respiratory effort Auscultation: clear to auscultation bilaterally Cardio Rate: regular rate Rhythm: regular rhythm Heart Sounds: S1 normal and S2 normal GI Inspection: normal to inspection Palpation: soft Skin General: no rashes or lesions noted Neuro General: patient alert, patient awake and patient oriented x3 Cognition: normal cognition Motor: muscle tone normal throughout Sensory Exam: no sensory deficits noted Objective Labs CBC & Chem 7: 08/16/21 06:26 08/16/21 06:26 Labs: Laboratory Results - last 24 hr 08/15/21 08/16/21 08/16/21 20:40 06:26 06:26 Corrected WBC 10.9 Uncorrected WBC Count 10.9 RBC 4.91 Hgb 14.9 Hct 43.8 MCV 89.2 MCH 30.4 MCHC 34.1 RDW 13.3 Plt Count 211 MPV 8.8 Neut % (Auto) 70.9 Lymph % (Auto) 18.6 [place] % (Auto) 9.4 Eos % (Auto) 0.4 Baso % (Auto) 0.7 Neut # (Auto) 7.7 Lymph # (Auto) 2.0 [place] # (Auto) 1.0 H Eos # (Auto) 0.0 Baso # (Auto) 0.1 Nucleated RBC % (auto) 0.0 PHA Creatinine Clear 42.46 Sodium 137 Potassium 3.0 L Chloride 99 Carbon Dioxide 24.2 BUN 16 Creatinine 1.35 H Est GFR ( Amer) 49 Est GFR (Non-Af Amer) 40 Glucose 105 H Calcium 9.0 Total Bilirubin 1.5 H AST 47 H ALT 57 Alkaline Phosphatase 76 Total Protein 6.1 Albumin 3.1 L Globulin 3.0 Albumin/Globulin Ratio 1.0 Urine Opiates Screen Negative Ur Barbiturates Screen Negative Ur Phencyclidine Scrn Negative Ur Amphetamines Screen Negative U Benzodiazepines Scrn Negative Urine Cocaine Screen Negative U Marijuana (THC) Screen Negative A&P - Cardiology (1) Elevated troponin: Assessment/Problem Details: Suggestive of coronary disease but not diagnostic. It was trivial and elevation. Probably type II physiology. Code(s): R77.8 - Other specified abnormalities of plasma proteins Status: Acute (2) Abnormal EKG: Assessment/Problem Details: Dynamic EKG changes suggestive of coronary disease. Because of this and troponin rise we recommend evaluation for coronary disease, after pyelonephritisis resolved Code(s): R94.31 - Abnormal electrocardiogram [ECG] [EKG] Status: Acute (3) Embolic stroke: Assessment/Problem Details: Patient appears to have manifestations suggestive of embolic stroke. Not certain whether its atheroembolic or thromboembolic. Transesophageal echo to rule out PFO. She had no atrial arrhythmias in the hospital nor any symptoms of such. Code(s): I63.9 - Cerebral infarction, unspecified Status: Acute Plan Transesophageal echo today. Because of elevated blood pressure increase metoprolol succinate today to 100 mg daily. Documented By: Marquez Beal MD [id number] Signed By: <Electronically signed by MD Mraquez Beal> 08/16/21 5329 [facility] Work Phone: [phone] Consult note Author Rober Wyatt [facility] August 15, 2021 5:40pm Note Date/Time August 15, 2021 8:42 am [facility] [address] [place] [address] Neurology Consult Note Signed Patient: Deysi Hernandez MR#: [id number] : 1960 Acct:[id number] Age/Sex: 61 / F Adm Date: 2 Loc: Room: [address] [place] [address] Type : ADM IN Attending Dr: Alaina Arce MD Copies to: DO Janet Richter, LESLEY Arce MD NO FAMILY PHYSICIAN~ HPI Consult Date: 08/15/21 Mold Maker Helper: MAURICIO Rose with Dr Wyatt Reason for consult: Stroke Consult Narrative HPI: Patient is a 61-year-old female with unknown medical history. She was admitted to the hospital on 08/13/2021 after presenting to the emergency room with abdominal pain that been present for approximately 1 week associated with nauseaand vomiting. Patient presented to the emergency room in [place] and found to have significant hypertension and was given a dose of Vasotec and labetalol. EKG showed ST depression and her troponin was elevated at 109. This did improvedown to 97. She had a slight bump in her WBC as well as her creatinine at 13.3 and 1.67 respectively. Potassium was low at 2.8. She had a CT scan of the abdomen that showed pyelonephritis and was given a dose of Rocephin in the emergency room. CT scan of the head was nonacute. She was transferred to [facility] for further evaluation and management. On arrival to this facility her WBC was normal. This is now increased to 14.1. Her potassium was still somewhat low but has normalized. She had acute kidney injury with BUN of 26 and creatinine 1.84. BUN is now normalized and creatinineis improved to 1.45. High-sensitivity troponin was 50. Urinalysis was abnormaland urine cultures are negative at 2 days with the exception of bacterial skin contaminants. Blood cultures negative at 1 day with repeat cultures pending. She has been afebrile. Yesterday afternoon around 4:15 PM a stroke alert was called due to increased confusion and hallucinations. She was not following commands. NIH was 3. She had a CT scan of the head that was nonacute. She wasgiven a dose of Haldol for agitation and hallucinations. She received 0.5 mg of Ativan last night around 1035. She received labetalol for hypertensive urgency with blood pressure as high as 207/117. Patient has no recall of the event. She has never had symptoms like that before. Family at bedside states she is back to her normal self. She denies headache, vision changes, dysarthria, dysphagia, focal weakness, or new paresthesias. Review of Systems Constitutional Constitutional: Denies chills and Denies fever(s) Eyes Eyes: Denies blurry vision, Denies diplopia and Denies loss of vision ENT Ears, Nose, Mouth, and Throat: Denies nasal congestion and Denies nasal discharge Cardiovascular Cardiovascular: Denies chest pain and Denies palpitations Respiratory Respiratory: Denies cough and Denies dyspnea Gastrointestinal Gastrointestinal: Denies nausea and Denies vomiting Genitourinary Genitourinary: Denies dysuria Musculoskeletal Musculoskeletal: Denies back pain, Reports myalgias and Denies neck pain Integumentary/Breasts Skin/Breast: Denies pruritus and Denies rash Neurologic Neurologic: Reports as per HPI Psychiatric Psychiatric: Denies auditory hallucinations and Denies confusion PMFSH Vaccinated for COVID-19?: Yes Family History Father Myocardial infarct Social History Smoking Status: Former smoker Tobacco Type: cigarettes Meds Medications and Allergies Allergies No Known Allergies Allergy (Verified 08/13/21 10:38) Exam Physical Exam Vital Signs: Temp Pulse Resp BP Pulse Ox 98.0 F 100 H 20 202/105 H 95 08/15/21 08:00 08/15/21 08:00 08/15/21 08:00 08/15/21 08:00 08/15/21 08:00 Narrative: GENERAL EXAM: * Constitutional - Patient appears well nourished and well groomed * Patient is alert and oriented x3. * Apical is regular rate and rhythm. No murmur was appreciated. No edema noted. Pulses are normal * Lung sounds are clear to auscultation * Abdomen is soft with normal bowel sounds * Neck is supple without carotid bruit * Ophthalmoscopic exam deferred. No injection or drainage noted. NEURO EXAM: * Attention span/concentration normal * Speech is clear and fluent * Cranial nerve II. Vision is intact. CLEMENT * Cranial nerve III, IV and . Extraocular muscles are intact. No nystagmus is appreciated * Cranial nerve V and VII. No facial asymmetry is appreciated. Temperature and pinprick is equal bilaterally * Cranial nerve VIII hearing is intact * Cranial nerve IX and X speech is clear fluent. Palate elevates symmetrically * Cranial nerve XI head turn side to side full range of motion. Shoulder shrug is equal bilaterally * Cranial nerve XII tongue is midline full range of motion MOTOR EXAM: * Strength is 5/5 throughout. No pronator drift was appreciated * Muscle tone and bulk are normal * Gait normal SENSORY EXAM: * Temperature, pinprick, vibration are intact in all 4 extremities and symmetric CEREBELLAR EXAM: * Baaddd-mr-vnzp and alternating movements are intact and normal in bilateral u pper extremities * Kkhj-uu-kbwz and alternating movements are intact and normal in lower extremities REFLEX EXAM: * 3/4 throughout. She does have cross abductor bilaterally. No Augustina or clonus was appreciated Results Laboratory Findings CBC and BMP: 08/15/21 07:14 08/15/21 07:14 Diagnostic Findings Imaging/Impressions: ITS Impressions Head CT 08/14/21 16:29 IMPRESSION: No acute intrarenal pathology. Similar areas of periventricular white matter hypoattenuation suspicious for chronic microvascular ischemic change. Findings were communicated with Asiya Vivar RN at 455 PM on 08/14/2021. Impression dictated by: Christopher Ceja M.D.08/14/2021 4:57 PM Dictation Location: [place] [address] Therapy Recommendations Therapy Recommendations: OT Recommendations OT Recommended Discharge Home Location PT Recommendations DC Physical Therapy Due To: No Skilled PT Needs,At Baseline PT Recommended Discharge Home Location Assessment/Plan (1) Pyelonephritis: Code(s): N12 - Tubulo-interstitial nephritis, not specified as acute or chronic Status: Acute (2) Hypertensive urgency: Code(s): I16.0 - Hypertensive urgency Status: Acute (3) Altered mental status: Code(s): R41.82 - Altered mental status, unspecified Status: Acute (4) Delirium: Code(s): R41.0 - Disorientation, unspecified Status: Acute Plan Patient is a 61-year-old female with no significant medical history other than tobacco use which she reportedly quit smoking about a week prior to hospitalization. Patient presented to the emergency room at [facility] with abdominal pain and was noted to have acute kidney injury and evidence of pyelonephritis and elevated troponin with EKG changes. She was transferred to [facility] for further evaluation. She is on antibiotics. She has been seen by cardiology was started beta-blockers and statins and recommends further evaluation once her infection is treated. Yesterday she developed increased confusion and hallucinations and stroke alert was called. CT scan of the head was nonacute. Stroke risk factors include hypertension, hyperlipidemia, and tobacco use. She will have an MRI scan of the brain to exclude acute intracranial pathology. However, this is likely metabolic encephalopathy due to infection as well as hypertensive encephalopathy with persistently elevated blood pressures in the 180s to over 200 systolic as high as 126 diastolic. PRES is a consideration. 1. CT scan head nonacute. MRI scan of the brain is pending 2. MRA of the head is pending 3. Carotid ultrasound is pending 4. Echocardiogram showed EF of 45% with moderate inferior lateral wall hypokinesis. EKG shows left ventricular hypertrophy with nonspecific ST?T abnormalities, prolonged QT and T wave inversion less evident in anterior leads from admission. Cardiac troponin improved to 50. Cardiology is following 5. Hypokalemia resolved. 6. Acute kidney injury improving. BUN now normal. Creatinine improved from 1.84- 1.45. Urinalysis abnormal. Urine culture negative at 2 days. She is on ceftriaxone per primary team 7. Leukocytosis. UTI as above. Blood cultures negative at 1 day. Repeat cultures are pending. She is afebrile 8. Hemoglobin A1c is pending 9. AST 58, ALT 59, alkaline phosphate 88 10. LDL 176, total cholesterol 259, triglyceride 164, HDL 50. She has been started on a statin 11. Baby aspirin 81 mg initiated 12. Aggressive management of hypertension recommended 13. Further recommendations to follow based on above evaluation patient's clinical course Thank you for the consult Attestation Statement I agree with the above. Patient seen and examined. Acute ischemic stroke, embolic pattern. Most likely cardioembolic. Multiple tinyfoci. No residual deficits. No atrial fibrillation detected. Transthoracic echocardiogram without thrombus or functional changes that would be prothrombotic. No personal or family history of any hypercoagulability it seems. PLAN: Aspirin 81 mg daily and a statin medication have been started Transesophageal echocardiogram with bubble Cardiac event monitor after discharge Thrombotic risk profile laboratory studies Documented By: LESLEY Bustillo [id number] Signed By: <Electronically signed by LESLEY Hamm> 08/15/21 1025 <Electronically signed by Rober Wyatt DO> 08/15/21 1744 [facility] Work Phone: [phone] Progress note Author Marquez Beal [facility] August 15, 2021 4:25pm Note Date/Time August 15, 2021 4:25 pm [facility] [address] [place] [address] Cardiology Progress Note Signed Patient: Deysi Hernandez MR#: [id number] : 1960 Acct:[id number] Age/Sex: 61 / F Adm Date: 2 Loc: Room: [address] [place] [address] Type : ADM IN Attending Dr: Alaina Arce MD Copies to: ~ Date of Service: 08/15/2021 Subjective Principal diagnosis: Abnormal EKG Interval history: Patient has no cardiac complaints. I explained to her that neurology is requested transesophageal echo. The procedural indications and technique were explained and she and her agreed to proceed in this fashion. I also explained to them that there is some suspicion for coronary disease. This is based upon family history, risk profile, subtle EKG changes and also a trivial troponin rise. With the patient as well, and recover from this hospitalization, we will pursue further evaluation. Exam Physical Exam Vital Signs: Temp Pulse Resp BP Pulse Ox 98.0 F 90 18 172/99 H 95 08/15/21 11:17 08/15/21 11:17 08/15/21 11:17 08/15/21 11:17 08/15/21 11:17 HEENT Head: normal to inspection Ears: hearing grossly normal bilaterally Nose: external nose normal and nares normal Face and sinus: normal facial exam Mouth: oral mucosae normal and tongue normal Eyes Conjunctivae: conjunctivae normal Sclera: sclerae normal Neck Neck: normal visual inspection Carotids: normal carotid upstroke Lymphatic: no lymphadenopathy noted Chest Chest palpation & inspection: normal inspection of the chest Resp Effort & Inspection: normal respiratory effort Auscultation: clear to auscultation bilaterally Cardio Rate: regular rate Rhythm: regular rhythm Heart Sounds: S1 normal and S2 normal GI Inspection: normal to inspection Palpation: soft Skin General: no rashes or lesions noted Objective Labs CBC & Chem 7: 08/15/21 07:14 08/15/21 07:14 Labs: Laboratory Results - last 24 hr 08/14/21 08/14/21 08/14/21 16:22 16:38 22:17 Corrected WBC Uncorrected WBC Count RBC Hgb Hct MCV MCH MCHC RDW Plt Count MPV Neut % (Auto) Lymph % (Auto) [place] % (Auto) Eos % (Auto) Baso % (Auto) Neut # (Auto) Lymph # (Auto) [place] # (Auto) Eos # (Auto) Baso # (Auto) Nucleated RBC % (auto) PT 11.8 INR 1.1 APTT 28.2 PHA Creatinine Clear Sodium Potassium Chloride Carbon Dioxide BUN Creatinine Est GFR ( Amer) Est GFR (Non-Af Amer) Glucose POC Glucose 102 Estimat Average Glucose 126 Hemoglobin A1c 6.0 H Calcium Total Bilirubin AST ALT Alkaline Phosphatase Total Protein Albumin Globulin Albumin/Globulin Ratio Triglycerides Cholesterol LDL Cholesterol, Calc VLDL Cholesterol HDL Cholesterol Cholesterol/HDL Ratio 08/15/21 08/15/21 07:14 07:14 Corrected WBC 14.1 H Uncorrected WBC Count 14.1 H RBC 5.02 H Hgb 15.3 Hct 44.6 MCV 88.8 MCH 30.5 MCHC 34.3 RDW 13.3 Plt Count 268 MPV 8.5 Neut % (Auto) 82.8 Lymph % (Auto) 8.6 [place] % (Auto) 7.9 Eos % (Auto) 0.1 Baso % (Auto) 0.6 Neut # (Auto) 11.6 H Lymph # (Auto) 1.2 [place] # (Auto) 1.1 H Eos # (Auto) 0.0 Baso # (Auto) 0.1 Nucleated RBC % (auto) 0.0 PT INR APTT PHA Creatinine Clear 39.71 Sodium 140 Potassium 3.5 Chloride 102 Carbon Dioxide 23.7 BUN 18 Creatinine 1.45 H Est GFR ( Amer) 45 Est GFR (Non-Af Amer) 37 Glucose 113 H POC Glucose Estimat Average Glucose Hemoglobin A1c Calcium 9.1 Total Bilirubin 0.9 AST 58 H ALT 59 Alkaline Phosphatase 88 Total Protein 6.5 Albumin 3.4 Globulin 3.1 Albumin/Globulin Ratio 1.1 Triglycerides 164 H Cholesterol 259 H LDL Cholesterol, Calc 176 H VLDL Cholesterol 32 HDL Cholesterol 50 Cholesterol/HDL Ratio 5.2 A&P - Cardiology (1) Elevated troponin: Assessment/Problem Details: Suggestive of underlying coronary disease. I believe it stable, and the elevated troponin simply on the basis of pyelonephritis Code(s): R77.8 - Other specified abnormalities of plasma proteins Status: Acute (2) Abnormal EKG: Assessment/Problem Details: Also suggestive but not diagnostic of coronary disease. Code(s): R94.31 - Abnormal electrocardiogram [ECG] [EKG] Status: Acute Plan Continue current medical therapy as is. We will follow. As an outpatient, and after recovered from pyelonephritis, we will pursue evaluation for coronary disease. I believe she will be stable until that time. Documented By: Marquez Beal MD 1622 Signed By: <Electronically signed by MD Marquez Beal> 08/15/21 1628 [facility] Work Phone: [phone] 470-852206-28-2022 Progress note Author Alaina Arce [facility] August 15, 2021 10:27am Note Date/Time August 15, 2021 10:2 7am [facility] [address] [place] [address] Hospitalist Progress Note Signed Patient: Deysi Hernandez MR#: [id number] : 1960 Acct:[id number] Age/Sex: 61 / F Adm Date: 2 Loc: Room: [address] [place] [address] Type : ADM IN Attending Dr: Alaina Arce MD Copies to: ~ Date of Service: 08/15/2021 Subjective Subjective Narrative: Patient is 61-year-old female with no previous known medical history GERD transferred from [place] for further management of abdominal pain. Patient states that she has been having diffuse abdominal pain from the last 1 week which got worse today, also complaining of some nausea vomiting, denied any fever and chills, states that she was just feeling sore all over, patient statesthat she has never seen any physician, does not take any medications, quit smoking a week ago, patient initially went to [place] ER, was found to have blood pressure in 200s, given a dose of Vasotec and labetalol, EKG showed some ST depressions in inferior leads, troponin was 109 decreased to 97 later, other labs consistent with WBC of 13.3, creatinine 1.67, BUN 26, potassium 2.8, not sure if patient got the potassium replaced or not, Patient had abdominal CT, found to have pyelonephritis, received a dose of Rocephin patient was accepted by my colleague for transfer, before transfer patient had period of confusion when her blood pressure dropped 200s, head CT was done whichwas negative for any acute changes, Patient was seen and examined on the floor, is alert oriented, answers all questions appropriately, but is been getting very restless, was actively vomiting on my encounter, continues to complain of abdominal pain, EKG was repeated here as well, which showed changes similar to 1 done in [place], Labs at [facility], potassium 3.1, creatinine 1.92, bloodglucose 132, EKG showed QTC of 589, Interval history = Patient seen and examined, overnight issues reported, stroke alert was called yesterday when patient became encephalopathy, was hallucinating very confused not following any commands, patient had head CT which was nonacute, neurology consulted, MRI brain pending, when I examined her this morning, patient states she did not know what happened yesterday, reported similar episodes in the past as well when she would get very confused, patient was hypertensive this morning with blood pressure in 200s, was present at the bedside updated as well,patient had telemetry sitter in place, has been afebrile Exam Physical Exam Vital Signs: Temp Pulse Resp BP Pulse Ox 98.0 F 100 H 20 202/105 H 95 08/15/21 08:00 08/15/21 08:00 08/15/21 08:00 08/15/21 08:00 08/15/21 08:00 Narrative: Constitutional : Alert oriented no acute distress HEENT : Normocephalic, atraumatic, oral mucosa moist Eyes: PEERLA, Respiratory : Clear to auscultation bilaterally, no wheezes rhonchi or crackles Cardio : Rate regular, rhythm regular, no murmurs or gallops , S1-S2 normal GI : No no costovertebral tenderness present, Neuro: Alert, awake, oriented x3, no focal motor deficits appreciated, cranial nerves grossly intact, deep tendon reflexes symmetrical bilaterally Extremities: No pedal edema, clubbing or cyanosis present Psych: Grossly normal Skin: No rashes or lesions noted Objective Lab Results CBC & Chem 7: 08/15/21 07:14 08/15/21 07:14 Microbiology Results Microbiology 08/13/21 11:18 Urine - Clean-Voided Midstream Urine Culture - Final <9,000 colonies/ml mixed bacterial skin contaminants 2 Days 08/13/21 10:49 Blood - Left Hand Blood Culture - Preliminary No Growth 1 Day 08/13/21 10:46 Blood - Right Antecubital Blood Culture - Preliminary No Growth 1 Day Meds Allergies and Active Meds Allergies No Known Allergies Allergy (Verified 08/13/21 10:38) Active Meds: Active Medications Generic Name Dose Route Start Last Admin Trade Name Freq PRN Reason Stop Dose Admin Acetaminophen 650 mg 08/13/21 22:02 08/13/21 22:52 Acetaminophen 325 Mg Tablet PO 08/13/22 22:01 650 mg Q6H PRN Administration Pain Amlodipine Besylate 10 mg 08/16/21 09:00 Amlodipine 10 Mg Tablet PO 08/16/22 08:59 DAILY ESTEBAN Aspirin 81 mg 08/13/21 13:35 08/15/21 09:44 Aspirin 81 Mg Tablet.Dr PO 08/13/22 13:34 81 mg DAILY ESTEBAN Administration Atorvastatin Calcium 40 mg 08/14/21 21:00 08/14/21 21:22 Atorvastatin 40 Mg Tablet PO 08/14/22 20:59 40 mg QPM ESTEBAN Administration Heparin Sodium (Porcine) 5,000 unit 08/13/21 21:00 08/15/21 09:45 Heparin 5,000 Unit/Ml Vial SUBCUT 08/13/22 20:59 5,000 unit Q12HR ESTEBAN Administration Hydralazine HCl 10 mg 08/13/21 10:03 08/15/21 00:31 Hydralazine 20 Mg/Ml Vial IV-PUSH 08/13/22 10:02 10 mg Q4H PRN Administration Hypertension Ceftriaxone Sodium 1 gm in 50 mls @ 100 mls/hr 08/13/21 11:00 08/14/21 11:08 Rocephin IV 100 mls/hr Q24H ESTEBAN Administration Sodium Chloride 1,000 mls @ 75 mls/hr 08/13/21 11:00 08/14/21 23:02 0.9% Sodium Chloride 1,000 Ml IV 08/13/22 10:59 75 mls/hr .[id number] ESTEBAN Administration Metoprolol Succinate 50 mg 08/15/21 09:00 08/15/21 09:44 Metoprolol Succinate 50 Mg Tab.Er.24h PO 08/15/22 08:59 50 mg DAILY ESTEBAN Administration Pantoprazole Sodium 40 mg 08/14/21 09:00 08/15/21 09:44 Pantoprazole 40 Mg Vial IV-PUSH 08/14/22 08:59 40 mg DAILY ESTEBAN Administration Potassium Chloride 40 meq 08/13/21 10:56 08/14/21 08:11 Potassium Chloride Er 20 Meq Tab.Er.Prt PO 08/13/22 10:55 40 meq DAILY PRN Administration Hypokalemia Sodium Chloride 10 ml 08/13/21 10:14 Sodium Chloride 0.9 % 10 Ml Syringe IV-PUSH 08/13/22 10:13 PRN PRN Flush Sodium Chloride 10 ml 08/14/21 09:00 08/15/21 09:44 Sodium Chloride 0.9 % 10 Ml Vial.Pf INJECTION 08/14/22 08:59 10 ml DAILY ESTEBAN Administration Sodium Chloride 10 ml 08/14/21 09:00 08/15/21 09:45 Sodium Chloride 0.9 % 10 Ml Syringe IV-PUSH 08/14/22 08:59 10 ml DAILY ESTEBAN Administration A&P - Hospitalist Assessment/Plan (1) Pyelonephritis: Plan Pyelonephritis : Urine culture and blood culture remain negative so far, patientdid have leukocytosis today which is could be reactive, repeat blood culture have been pending, urine culture at [place] showed mixed zoe, since patient presented with symptoms of pyelonephritis did improve with antibiotics, will continue antibiotics for now, monitor cultures, Sepsis secondary to above Hypertensive urgency : Patient has been getting hypertensive likely secondary toleg agitation and anxiety, on Lopressor, started on Norvasc, dose increased, also on hydralazine as needed for blood pressure above 160, patient does not take any medications at home , renin aldosterone level pending, Acute metabolic encephalopathy : Patient mentation waxes and wane, on my encounter today patient was alert oriented, stroke alert was called yesterday for encephalopathy, neurology consult, Head CT was done which was nonacute, MRI has been pending, ZEB, no previous creatinine known L creatinine improved to 1.45 today, Troponin elevation likely secondary to type II myocardial infarction : Patient did have some ST depression in the inferior leads, no history of previous CAD, patient denies any chest pain, cardiology consulted, patient will need ischemic evaluation soon DVT prophylaxis PT OT Documented By: Alaina Arce MD 08/15/21 1024 Signed By: <Electronically signed by Alaina Arce MD> 08/15/21 1027 [facility] Work Phone: [phone] Progress note Author Bong Bansal [facility] August 14, 2021 6:15pm Note Date/Time August 14, 2021 4:52 pm [facility] [address] [place] [address] Event Note Signed Patient: Deysi Hernandez MR#: [id number] : 1960 Acct:[id number] Age/Sex: 61 / F Adm Date: 2 Loc: Room: [address] [place] [address] Type : ADM IN Attending Dr: Alaina Arce MD Copies to: MD Alaina Maxwell MD NO FAMILY PHYSICIAN~ Event Date & Type DATE OF EVENT: 08/14/21 TIME OF EVENT: 04:15 CRITICAL CARE TIME: 20 EVENT TYPE: Stroke Alert PROCEDURES PERFORMED DURING EVENT: None Event Details Code stroke was called at 4:15 PM. Patient is being managed for encephalopathy related to infection. Fortunately patient was confused at outside hospital and CT head was done due to suspicion of stroke which showed no acute pathology. Per RN patient had change in mental status and was hallucinating and called codestroke. When I walked in patient is awake and appeared very anxious and was talking about her friend Sabine. She was moving her extremities voluntarilybut not following commands as she is confused. Vitals consistent with elevated blood pressure but is afebrile and is saturating well on [address] ordered which showed no acute pathology. Labs from the morning reviewed which showed noleukocytosis with ZEB. Blood cultures obtained at outside hospital were reportedly contaminated. Ordered new blood cultures. We will consult neurology. Patient is back from CAT scan and is still restless and anxious. Will order Haldol 2 mg IV once. PT/INR obtained which is within normal limits Documented By: Bong Bansal MD 08/14/211651 Signed By: <Electronically signed by Bong Bnasal MD> 08/14/21 9918 [facility] Work Phone: [phone] Progress note Author Marquez Beal [facility] August 14, 2021 3:21pm Note Date/Time August 14, 2021 3:21 pm [facility] [address] [place] [address] Cardiology Progress Note Signed Patient: Deysi Hernandez MR#: [id number] : 1960 Acct:[id number] Age/Sex: 61 / F Adm Date: 2 Loc: Room: [address] [place] [address] Type : ADM IN Attending Dr: Alaina Arce MD Copies to: ~ Date of Service: 08/14/2021 Subjective Principal diagnosis: Abnormal EKG Interval history: Patient's improved today. Still a bit mentally foggy . She is able to answer most questions and appears pretty well oriented. Explained to her and her my suspicions of coronary disease. She had elevated troponins and abnormal EKG. Unfortunately she is acutely ill with pyelonephritis and also has acute renal insufficiency. Because of this I am reluctant to recommend a contrast related exposure such as coronary angiogram plus or minus ad hoc PCI. Because of this I recommend guideline directed therapy specifically aspirin beta-blockers and statins we will pursue the matterin several weeks after she is recovered from the infection. These medications have been ordered Exam Physical Exam Vital Signs: Temp Pulse Resp BP Pulse Ox 97.8 F 79 16 139/91 94 L 08/14/21 07:31 08/14/21 11:01 08/14/21 11:01 08/14/21 11:01 08/14/21 11:01 HEENT Head: normal to inspection Ears: hearing grossly normal bilaterally Nose: external nose normal and nares normal Face and sinus: normal facial exam Mouth: oral mucosae normal and tongue normal Eyes Conjunctivae: conjunctivae normal Sclera: sclerae normal Neck Neck: normal visual inspection Carotids: normal carotid upstroke Lymphatic: no lymphadenopathy noted Chest Chest palpation & inspection: normal inspection of the chest Resp Effort & Inspection: normal respiratory effort Auscultation: clear to auscultation bilaterally Cardio Rate: regular rate Rhythm: regular rhythm Heart Sounds: S1 normal and S2 normal GI Inspection: normal to inspection Palpation: soft Skin General: no rashes or lesions noted Neuro General: patient alert, patient awake and patient oriented x3 Cognition: normal cognition Motor: muscle tone normal throughout Sensory Exam: no sensory deficits noted Objective Labs CBC & Chem 7: 08/14/21 06:08 08/14/21 06:08 Labs: Laboratory Results - last 24 hr 08/13/21 08/14/21 08/14/21 16:53 06:08 06:08 Corrected WBC 10.5 Uncorrected WBC Count 10.5 RBC 4.70 Hgb 14.4 Hct 41.2 MCV 87.7 MCH 30.6 MCHC 34.9 RDW 12.9 Plt Count 180 MPV 8.4 Neut % (Auto) 64.9 Lymph % (Auto) 26.5 [place] % (Auto) 7.3 Eos % (Auto) 0.6 Baso % (Auto) 0.7 Neut # (Auto) 6.8 Lymph # (Auto) 2.8 [place] # (Auto) 0.8 Eos # (Auto) 0.1 Baso # (Auto) 0.1 Nucleated RBC % (auto) 0.0 PHA Creatinine Clear 31.71 Sodium 138 Potassium 2.8 L* Chloride 100 Carbon Dioxide 26.1 BUN 26 H Creatinine 1.84 H Est GFR ( Amer) 34 Est GFR (Non-Af Amer) 28 Glucose 100 Calcium 8.4 Magnesium Total Bilirubin 0.7 AST 28 ALT 22 Alkaline Phosphatase 65 Troponin I High Sens 50 H* Total Protein 5.6 L Albumin 2.9 L Globulin 2.7 Albumin/Globulin Ratio 1.1 Ur Random Creatinine U Random Total Protein Protein/Creatinin Ratio Ur Sodium mmol/L 08/14/21 08/14/21 08/14/21 08:20 08:20 11:05 Corrected WBC Uncorrected WBC Count RBC Hgb Hct MCV MCH MCHC RDW Plt Count MPV Neut % (Auto) Lymph % (Auto) [place] % (Auto) Eos % (Auto) Baso % (Auto) Neut # (Auto) Lymph # (Auto) [place] # (Auto) Eos # (Auto) Baso # (Auto) Nucleated RBC % (auto) PHA Creatinine Clear Sodium Potassium Chloride Carbon Dioxide BUN Creatinine Est GFR ( Amer) Est GFR (Non-Af Amer) Glucose Calcium Magnesium 2.3 Total Bilirubin AST ALT Alkaline Phosphatase Troponin I High Sens Total Protein Albumin Globulin Albumin/Globulin Ratio Ur Random Creatinine 74.6 U Random Total Protein 100 H 100 H Protein/Creatinin Ratio 1340 H Ur Sodium mmol/L 54.0 A&P - Cardiology (1) Abnormal EKG: Assessment/Problem Details: Dynamic ST-T wave changes resolved. For the time being I recommend guideline directed therapy with aspirin beta-blockers and statins. Code(s): R94.31 - Abnormal electrocardiogram [ECG] [EKG] Status: Acute (2) Elevated troponin: Assessment/Problem Details: Raises suspicions for otherwise unrecognized coronary disease. The patient is, though, too sick to undergo an angiographic evaluation and/or intervention. Code(s): R77.8 - Other specified abnormalities of plasma proteins Status: Acute Plan Aspirin metoprolol succinate and statin. We will follow. After discharge we will make arrangements for early evaluation for possible coronary disease Documented By: Marquez Beal MD [id number] Signed By: <Electronically signed by MD Marquez Beal> 08/14/21 1521 [facility] Work Phone: [phone] Progress note Author Alaina Arce [facility] August 14, 2021 10:48am Note Date/Time August 14, 2021 10:4 4am [facility] [address] [place] [address] Hospitalist Progress Note Signed Patient: Deysi Hernandez MR#: [id number] : 1960 Acct:[id number] Age/Sex: 61 / F Adm Date: 2 Loc: Room: [address] [place] [address] Type : ADM IN Attending Dr: Alaina Arce MD Copies to: ~ Date of Service: 08/14/2021 Subjective Subjective Narrative: Patient is 61-year-old female with no previous known medical history GERD transferred from [place] for further management of abdominal pain. Patient states that she has been having diffuse abdominal pain from the last 1 week which got worse today, also complaining of some nausea vomiting, denied any fever and chills, states that she was just feeling sore all over, patient statesthat she has never seen any physician, does not take any medications, quit smoking a week ago, patient initially went to [place] ER, was found to have blood pressure in 200s, given a dose of Vasotec and labetalol, EKG showed some ST depressions in inferior leads, troponin was 109 decreased to 97 later, other labs consistent with WBC of 13.3, creatinine 1.67, BUN 26, potassium 2.8, not sure if patient got the potassium replaced or not, Patient had abdominal CT, found to have pyelonephritis, received a dose of Rocephin patient was accepted by my colleague for transfer, before transfer patient had period of confusion when her blood pressure dropped 200s, head CT was done whichwas negative for any acute changes, Patient was seen and examined on the floor, is alert oriented, answers all questions appropriately, but is been getting very restless, was actively vomiting on my encounter, continues to complain of abdominal pain, EKG was repeated here as well, which showed changes similar to 1 done in [place], Labs at [facility] [place], potassium 3.1, creatinine 1.92, bloodglucose 132, EKG showed QTC of 589, Interval history Patient seen and examined, patient states that she is feeling much better, encephalopathy has resolved, was present at the bedside, patient states that she feels herself today, was not able to think right yesterday, denies any abdominal pain nausea vomiting, patient states that she has been urinating fine,denies any history of hypertension, was not taking any medications prior to coming to the hospital. Exam Physical Exam Vital Signs: Temp Pulse Resp BP Pulse Ox 97.8 F 76 16 182/116 H 95 08/14/21 07:31 08/14/21 07:31 08/14/21 07:31 08/14/21 10:15 08/14/21 07:31 Narrative: Constitutional : Alert oriented no acute distress HEENT : Normocephalic, atraumatic, oral mucosa moist Eyes: PEERLA, Respiratory : Clear to auscultation bilaterally, no wheezes rhonchi or crackles Cardio : Rate regular, rhythm regular, no murmurs or gallops , S1-S2 normal GI : No no costovertebral tenderness present, Neuro: Alert, awake, oriented x3, no focal motor deficits appreciated, cranial nerves grossly intact, deep tendon reflexes symmetrical bilaterally Extremities: No pedal edema, clubbing or cyanosis present Psych: Grossly normal Skin: No rashes or lesions noted Objective Lab Results CBC & Chem 7: 08/14/21 06:08 08/14/21 06:08 Microbiology Results Microbiology 08/13/21 11:18 Urine - Clean-Voided Midstream Urine Culture - Preliminary <9,000 colonies/ml mixed bacterial skin contaminants 1 Day Meds Allergies and Active Meds Allergies No Known Allergies Allergy (Verified 08/13/21 10:38) Active Meds: Active Medications Generic Name Dose Route Start Last Admin Trade Name Freq PRN Reason Stop Dose Admin Acetaminophen 650 mg 08/13/21 22:02 08/13/21 22:52 Acetaminophen 325 Mg Tablet PO 08/13/22 22:01 650 mg Q6H PRN Administration Pain Aspirin 81 mg 08/13/21 13:35 08/14/21 07:59 Aspirin 81 Mg Tablet. PO 08/13/22 13:34 81 mg DAILY ESTEBAN Administration Heparin Sodium (Porcine) 5,000 unit 08/13/21 21:00 08/14/21 07:59 Heparin 5,000 Unit/Ml Vial SUBCUT 08/13/22 20:59 5,000 unit Q12HR ESTEBAN Administration Hydralazine HCl 10 mg 08/13/21 10:03 08/14/21 10:19 Hydralazine 20 Mg/Ml Vial IV-PUSH 08/13/22 10:02 10 mg Q4H PRN Administration Hypertension Ceftriaxone Sodium 1 gm in 50 mls @ 100 mls/hr 08/13/21 11:00 08/13/21 11:29 Rocephin IV 100 mls/hr Q24H ESTEBAN Administration Sodium Chloride 1,000 mls @ 75 mls/hr 08/13/21 11:00 08/14/21 06:13 0.9% Sodium Chloride 1,000 Ml IV 08/13/22 10:59 75 mls/hr .[id number] ESTEBAN Administration Metoprolol Tartrate 25 mg 08/13/21 13:35 08/14/21 07:59 Metoprolol Tartrate 25 Mg Tablet PO 08/13/22 13:34 25 mg DAILY ESTEBAN Administration Pantoprazole Sodium 40 mg 08/14/21 09:00 08/14/21 07:59 Pantoprazole 40 Mg Vial IV-PUSH 08/14/22 08:59 40 mg DAILY ESTEBAN Administration Potassium Chloride 40 meq 08/13/21 10:56 08/14/21 08:11 Potassium Chloride Er 20 Meq Tab.Er.Prt PO 08/13/22 10:55 40 meq DAILY PRN Administration Hypokalemia Sodium Chloride 10 ml 08/13/21 10:14 Sodium Chloride 0.9 % 10 Ml Syringe IV-PUSH 08/13/22 10:13 PRN PRN Flush Sodium Chloride 10 ml 08/14/21 09:00 08/14/21 07:59 Sodium Chloride 0.9 % 10 Ml Vial.Pf INJECTION 08/14/22 08:59 10 ml DAILY ESTEBAN Administration Sodium Chloride 10 ml 08/14/21 09:00 Sodium Chloride 0.9 % 10 Ml Syringe IV-PUSH 08/14/22 08:59 DAILY ESTEBAN A&P - Hospitalist Assessment/Plan (1) Pyelonephritis: Plan Pyelonephritis Sepsis secondary to above Hypertensive urgency Acute metabolic encephalopathy : Has now resolved ZEB, no previous creatinine known Troponin elevation likely secondary to type II myocardial infarction Plan Blood culture negative for day 1, urine culture negative, will get culture report from [place] Patient has significantly improved, continue Rocephin, will give total of 14 days antibiotics for pyelonephritis Encephalopathy has resolved Patient has been hypertensive with blood pressure in 180s, on Lopressor, will start amlodipine Creatinine is 1.8, was 1.9 yesterday, no previous history of CKD known, also hypokalemic with potassium of 2.8, will replace potassium, will check renin and aldosterone, get urine sodium creatinine and urine protein Patient to follow-up with PCP and nephrology as outpatient Seen by cardiology, does not recommend any invasive evaluation at this point time, patient will benefit from stress test as outpatient DVT prophylaxis Anticipate discharge likely tomorrow Documented By: Alaina Arce MD 08/14/21 1042 Signed By: <Electronically signed by Alaina Arce MD> 08/14/21 1048 [facility] Work Phone: [phone]) 999-894506-26-2022 Consult note Author Marquez Beal [facility] [place] August 13, 2021 1:32pm Note Date/Time August 13, 2021 1:32 pm [facility] [address] [place] [address] Cardiology Consult Note Signed Patient: Deysi Hernandez MR#: [id number] : 1960 Acct:[id number] Age/Sex: 61 / F Adm Date: 2 Loc: Room: [address] [place] [address] Type : ADM IN Attending Dr: Alaina Arce MD Copies to: Alaina Arce MD NO FAMILY PHYSICIAN Marquez Beal MD~ Cardiology HPI History of Present Illness Consult Date: 08/13/21 Reason for Consult: Abnormal EKG, elevated troponins HPI: Ms. Hernandez is a 61 year old female seen for the above She is an individual transferred from an outside hospital with what appears to be pyelonephritis. Coincidentally she is noted to have a mild elevation in troponins and an abnormal EKG She denies a known history of heart disease. Further review reveals that she isnot seeking regular medical care and does not see a doctor. Because of this herrisk factors are unclear. She may in fact be hypertensive and/or hyperlipidemicand remains to be seen whether or not she has a glucose problem as well. She does acknowledge a lifelong history of smoking. Several siblings have had heartattacks and/or coronary intervention. Her father had a heart attack as well. I cannot elicit any angina CHF or arrhythmia symptomatology from her. She does acknowledge that she might be at risk for heart disease because of her family history and tobacco use. At the moment, though, she is too sick to undergo any diagnostic and/or therapeutic intervention because of this we will follow. Review of Systems Review of Systems All other systems reviewed & are negative unless noted below or in HPI Constitutional Constitutional: Reports system reviewed and no additional complaints, except as documented Eyes Eyes: Reports system reviewed and no additional complaints, except as documented ENT Ears, Nose, Mouth, and Throat: Reports system reviewed and no additional complaints, except as documented Cardiovascular Cardiovascular: Reports as per HPI Respiratory Respiratory: Reports system reviewed and no additional complaints, except as documented Gastrointestinal Gastrointestinal: Reports system reviewed and no additional complaints, except as documented Genitourinary Genitourinary: Reports system reviewed and no additional complaints, except as documented Musculoskeletal Musculoskeletal: Reports system reviewed and no additional complaints, except asdocumented Integumentary/Breasts Skin/Breast: Reports system reviewed and no additional complaints, except as documented Neurologic Neurologic: Reports system reviewed and no additional complaints, except as documented Psychiatric Psychiatric: Reports system reviewed and no additional complaints, except as documented Endocrine Endocrine: Reports system reviewed and no additional complaints, except as documented Hematologic/Lymphatic Hematologic/Lymphatic: Reports system reviewed and no additional complaints, except as documented Allergic/Immunologic Allergic/Immunologic: Reports system reviewed and no additional complaints, except as documented Meds Medications and Allergies Allergies No Known Allergies Allergy (Verified 08/13/21 10:38) Exam Physical Exam Vital Signs: Temp Pulse Resp BP Pulse Ox 97.4 F L 60 16 126/83 95 08/13/21 12:00 08/13/21 12:00 08/13/21 12:00 08/13/21 12:00 08/13/21 12:00 HEENT Head: normal to inspection Ears: hearing grossly normal bilaterally Nose: external nose normal and nares normal Face and sinus: normal facial exam Mouth: oral mucosae normal and tongue normal Eyes Conjunctivae: conjunctivae normal Sclera: sclerae normal Neck Neck: normal visual inspection Carotids: normal carotid upstroke Lymphatic: no lymphadenopathy noted Chest Chest palpation & inspection: normal inspection of the chest Resp Effort & Inspection: normal respiratory effort Auscultation: clear to auscultation bilaterally Cardio Rate: regular rate Rhythm: regular rhythm Heart Sounds: S1 normal and S2 normal GI Inspection: normal to inspection Palpation: soft Skin General: no rashes or lesions noted Neuro General: patient alert, patient awake and patient oriented x3 Cognition: normal cognition Motor: muscle tone normal throughout Sensory Exam: no sensory deficits noted Results Labs CBC & CMP: 08/13/21 10:44 08/13/21 10:44 Lab results: CBC 08/13/21 Range/Units 10:44 RBC 4.99 (3.60-5.00) x10E6/uL Hgb 15.2 (11.8-15.4) g/dL Hct 44.1 (34.0-46.4) % Plt Count 223 (150-450) x10E3/uL Neut # (Auto) 9.1 H (1.8-7.7) x10E3/uL Lymph # (Auto) 1.0 (1.00-4.8) x10E3/uL [place] # (Auto) 0.5 (0.0-0.8) x10E3/uL Eos # (Auto) 0.0 (0.0-0.45) x10E3/uL Baso # (Auto) 0.1 (0.0-0.2) x10E3/uL Comprehensive Metabolic Panel 08/13/21 Range/Units 10:44 Sodium 139 (136-146) mmol/L Potassium 3.1 L (3.5-5.1) mmol/L Chloride 96 (95-114) mmol/L Carbon Dioxide 29.1 (22.0-30.0) mmol/L BUN 27 H (9-23) mg/dL Creatinine 1.92 H (0.44-1.03) mg/dL Glucose 132 H (70-100) mg/dL Calcium 8.6 (8.2-10.2) mg/dL Intake and Output 08/12/21 08/13/21 08/13/21 23:59 07:59 15:59 Other: Date of Last Bowel Movement 08/13/21 A&P - Cardiology (1) Elevated troponin: Assessment/Problem Details: Patient may have subclinical coronary disease and type II infarct on the basisof pyelonephritis. I am suspicious of underlying coronary disease because of her risk profile and family history Code(s): R77.8 - Other specified abnormalities of plasma proteins (2) Abnormal EKG: Assessment/Problem Details: Also suspicious for underlying coronary disease. Code(s): R94.31 - Abnormal electrocardiogram [ECG] [EKG] Plan Treat primary illness. We will follow. When the opportunity presents we will pursue diagnostic evaluation. Documented By: Marquez Beal MD [id number] Signed By: <Electronically signed by MD Marquez Beal> 08/13/21 9904 [facility] Work Phone: 1(944) 514-248706-26-2022 History and physical note Author Alaina Arce [facility] [place] August 13, 2021 12:13pm Note Date/Time August 13, 2021 11:5 5am [facility] [address] [place] [address] Hospitalist H&P Signed Patient: Deysi Hernandez MR#: [id number] : 1960 Acct:[id number] Age/Sex: 61 / F Adm Date: 2 Loc: Room: [address] [place] [address] Type : ADM IN Attending Dr: Alaina Arce MD Copies to: Alaina Arce MD NO FAMILY PHYSICIAN~ HPI DATE OF EXAMINATION: 08/13/21 CHIEF COMPLAINT: Abdominal pain HISTORY OF PRESENT ILLNESS: Patient is 61-year-old female with no previous known medical history GERD transferred from [place] for further management of abdominal pain. Patient states that she has been having diffuse abdominal pain from the last 1 week which got worse today, also complaining of some nausea vomiting, denied any fever and chills, states that she was just feeling sore all over, patient statesthat she has never seen any physician, does not take any medications, quit smoking a week ago, patient initially went to [place] ER, was found to have blood pressure in 200s, given a dose of Vasotec and labetalol, EKG showed some ST depressions in inferior leads, troponin was 109 decreased to 97 later, other labs consistent with WBC of 13.3, creatinine 1.67, BUN 26, potassium 2.8, not sure if patient got the potassium replaced or not, Patient had abdominal CT, found to have pyelonephritis, received a dose of Rocephin patient was accepted by my colleague for transfer, before transfer patient had period of confusion when her blood pressure dropped 200s, head CT was done whichwas negative for any acute changes, Patient was seen and examined on the floor, is alert oriented, answers all questions appropriately, but is been getting very restless, was actively vomiting on my encounter, continues to complain of abdominal pain, EKG was repeated here as well, which showed changes similar to 1 done in [place], Labs at [facility] [place], potassium 3.1, creatinine 1.92, bloodglucose 132, EKG showed QTC of 589, Review of Systems Review of Systems All other systems reviewed & are negative unless noted below or in HPI Meds Medications and Allergies Allergies No Known Allergies Allergy (Verified 08/13/21 10:38) Exam Physical Exam Narrative: Constitutional : Restless, constantly moving in the bed, HEENT : Normocephalic, atraumatic, oral mucosa moist Eyes: PEERLA, Respiratory : Clear to auscultation bilaterally, no wheezes rhonchi or crackles Cardio : Rate regular, rhythm regular, no murmurs or gallops , S1-S2 normal GI : No no costovertebral tenderness present, Neuro: Alert, awake, oriented x3, no focal motor deficits appreciated, cranial nerves grossly intact, deep tendon reflexes symmetrical bilaterally Extremities: No pedal edema, clubbing or cyanosis present Psych: Grossly normal Skin: No rashes or lesions noted Results Lab Results Labs: Laboratory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 Follow Up Reason Comments Patient Question INFORMATION SOURCE (unrecogn ized section and content) DATE CREATED AUTHOR 12/17/2020 [facility] DATE CREATED AUTHOR AUTHOR'S ORGANIZ ATION 01/27/2022 [facility] DATE CREATED AUTHOR AUTHOR'S ORGANIZ ATION 03/06/2022 [facility] DATE CREATED AUTHOR AUTHOR'S ORGANIZ ATION 07/03/2022 [facility] DATE CREATED AUTHOR AUTHOR'S ORGANIZ ATION 08/28/2022 [facility] DATE CREATED AUTHOR AUTHOR'S ORGANIZ ATION 10/30/2022 [facility] DATE CREATED AUTHOR AUTHOR'S ORGANIZ ATION 02/13/2023 [facility] DATE CREATED AUTHOR AUTHOR'S ORGANIZ ATION 02/18/2023 [facility] Teams (unrecognized sec tion and content) Team Status: Active Member Role Status Dates PHYSICIAN NO FAMILY Primary Care Provider Active LINA Rose Attending Provider Active Team Status: Inactive Member Role Status Dates PHYSICIAN NO FAMILY Primary Care Provider Active Alaina Arce MD Admit Provider Active Marquez Beal MD Referring Provider, Other Provider Active Rober Wyatt , DO Other Provider Active Ricky Reynoso , Attending Provider Active Team Status: Active Member Role Status Dates PHYSICIAN NO FAMILY Primary Care Provider Active Team Status: Inactive Member Role Status Dates PHYSICIAN NO FAMILY Primary Care Provider Active Linn Byrne APRN Attending Provider Active Team Status: Inactive Member Role Status Dates PHYSICIAN NO FAMILY Primary Care Provider Active LINA Rose Attending Provider Active Team Status: Inactive Member Role Status Dates Shaikh Donna MD Primary Care Provider Active Marquez Beal MD Attending Provider Active Team Status: Active Member Role Status Dates Shaikh Donna MD Primary Care Provider Active Team Status: Inactive Member Role Status Dates Shaikh Donna MD Primary Care Provider Active Kevyn Deras MD Attending Provider Active 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 Relationship Specialty Start Date End Date Shaikh Thompson MD [address] [place] [address] PCP - General Primary Care 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 Relationship Specialty Start Date End Date Shaikh Thompson MD [address] [place] [address] PCP - General Primary Care 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 Relationship Specialty Start Date End Date Shaikh Thompson MD [address] [place] [address] PCP - General Primary Care 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 Relationship Specialty Start Date End Date Shaikh Thompson MD [address] [place] [address] PCP - General Primary Care 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 Relationship Specialty Start Date End Date Shaikh Thompson MD [address] [place] [address] PCP - General Primary Care 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 Relationship Specialty Start Date End Date Shaikh Thompson MD [address] [place] [address] PCP - General Primary Care 08/09/22 Team Status: Inactive Member Role Status Dates Shaikh Donna MD Primary Care Provider Active Jacques East MD Admit Provider, Attending Provi katerina Active Source Comments (unrecognize d section and content) In the event this informatio n is protected by the Federal Confidentiality of Alcohol and Drug Abuse Patient Records regulations: The Federal rules restrict any use of the information to criminally investigate or prosecute any alcohol or drug abuse patient.[facility] the event this information is protected by the Federal Confidentiality of Alcohol and Drug Abuse Patient Records regulations: The Federal rules restrict any use of the information to criminally investigate or prosecute any alcohol or drug abuse patient.[facility] the event this information is protected by the Federal Confidentiality of Alcohol and Drug Abuse Patient Records regulations: The Federal rules restrict any use of the information to criminally investigate or prosecute any alcohol or drug abuse patient.[facility] the event this information is protected by the Federal Confidentiality of Alcohol and Drug Abuse Patient Records regulations: The Federal rules restrict any use of the information to criminally investigate or prosecute any alcohol or drug abuse patient.[facility] the event this information is protected by the Federal Confidentiality of Alcohol and Drug Abuse Patient Records regulations: The Federal rules restrict any use of the information to criminally investigate or prosecute any alcohol or drug abuse patient.[facility] the event this information is protected by the Federal Confidentiality of Alcohol and Drug Abuse Patient Records regulations: The Federal rules restrict any use of the information to criminally investigate or prosecute any alcohol or drug abuse patient.[facility] the event this information is protected by the Federal Confidentiality of Alcohol and Drug Abuse Patient Records regulations: The Federal rules restrict any use of the information to criminally investigate or prosecute any alcohol or drug abuse patient.[facility] FOR RECORDS PERTAINING TO PATIENTS WHO ARE OR HAVE BEEN ENROLLED IN A CHEMICAL DEPENDENCY/SUBSTANCEABUSE PROGRAM, SOME INFORMATION MAY BE OMITTED. This clinical summary was aggregated from multiple sources. Caution should be exercised in using it in the provision of clinical care. This summary normalizes information from multiple sources, and as a consequence, information in this document may materially change the coding, format and clinical context of patient data. In addition, data may be omitted in some cases. CLINICAL DECISIONS SHOULD BE BASED ON THE PRIMARY CLINICAL RECORDS. [facility] [employer] [facility]. provides no warranty or guarantee of the accuracy or completeness of information in this document.
--- NOTE | 2023-02-19 18:22 | MM_ITS ---
Patient Name: SIXTO RICH MR#: [id number] : 1960 Exam Date: 02/19/2023 Ordering Doctor: Shaikh Ford Thompson . RADIOLOGY REPORT PROCEDURE: MM TOMOSYNTHESIS SCREENING BI COMPARISON: MG MAMM NIRMALA SCRN W CAD DIG, 12/05/2012. MG MAMM SCREEN 3D NIRMALA CAD, 10/30/2021. INDICATIONS: Screening Calculator Name NCI Breast Cancer Risk Assessment Tool 5 Year Breast Cancer Risk 1.00% Lifetime Breast Cancer Risk 5.30% Personal Breast Cancer No Personal Ovarian Cancer No Treatments None Family Cancers None LOCATION: [facility] BREAST COMPOSITION: Scattered areas fibroglandular density. FINDINGS: DIAGNOSTIC CATEGORY 2--BENIGN FINDING. NO CHANGE FROM COMPARISON. Scattered benign-appearing nodules are present. Scattered benign-appearing lymph nodes are present. RIGHT BREAST: No significant suspicious finding. LEFT BREAST: No significant suspicious finding. RECOMMENDATIONS: ROUTINE MAMMOGRAM AND CLINICAL EVALUATION IN 12 MONTHS. PLEASE NOTE: A NORMAL MAMMOGRAM DOES NOT EXCLUDE THE POSSIBILITY OF BREAST CANCER. A CLINICALLY SUSPICIOUS PALPABLE LUMP SHOULD BE BIOPSIED. Dictated by: Damian Martinez MD on 02/20/2023 at 09:27 Approved by: Damian Martinez MD on 02/20/2023 at 09:37
== END 2023-02-19 17:57 | disposition home or self-care (01) ==
LOC: MAMMO 17:56
PROVIDERS: PCP Internal Medicine; Visit Provider Internal Medicine
DX: Z12.31 Encounter for screening mammogram for malignant neoplasm of breast (principal)
CPT/HCPCS: 77063; 77067

== ENCOUNTER 2023-04-23 22:27 | Emergency (ER) | payer OTHER, SELFPAY ==
[2023-04-23] VITALS (10 sets, daily range): BP systolic 137; BP diastolic 86; PULSE 79–92; RESP 12–25; TEMP 36.8; O2SAT 90–94; BMI 27.0
--- NOTE | 2023-04-23 22:20 | ECG_ITS ---
[facility] Test Date: 2023-04-23 Pat Name: SIXTO RICH Department: Room: - Gender: Female Ladies Attendant: : 1960 Requested By: SHAIKH CIARA Order Number: [id number] Reading MD: DADA ORTEGA Measurements Intervals [place] Rate: 86 P: 70 MS: 140 QRS: 79 QRSD: 80 T: 78 QT: 376 QTc: 419 Interpretive Statements [address]/T wave changes 9110 normal ECG No change from previous tracing of 02/12/23 Electronically Signed On 04-24-2023 6:47:45 EST by DADA ORTEGA
--- OUTSIDE RECORDS SUMMARY | 2023-04-23 22:32 | XMS_ITS | CCD ---
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 Name Role Phone Unavailable Primary Care Provider UnavailALEXANDR Hong Referring Unavailable NO FAMILY, PHYSICIAN Primary Care Provider Unava MD Alaina Hernandez Admit Provider MD Marquez Beal Referring Provider DO Rober Wyatt Other Provider DO Ricky Reynoso Attending Provider [phone] ALVA Hamm- Janet Attending Provider DARVIN Byrne Attending Provider [phone] Linn Byrne Unavailable Shaikh Thompson Unavailable Unavailable [...] ailable MD Nick Thompson Primary Care Provider [phone] MD Kevyn Sharma Attending Provider [phone] SHAIKH THOMPSON Primary Care Physician Padmini Sam Unavailable Kevyn Sharma Unavailable FAWWAD, DUNBAR H Admitting Unavailable FAWWAD, [...] Admitting Unavailable FAWWAD, DUNBAR H Attending Unavailable FELYWNICOLE, DUNBAR H Primary Care Unavailable MCGUINN, DR SINGH Admitting Unavailable MCGUINN, DR SINGH Attending Unavailable FASONIA, DUNBAR H Primary Care Unavailable GROVES ., DR JENNINGS Consulting Unavailable EMIGDIO, DR SINGH Consulting Unavailable DONNA, DUNBAR H Primary Care Unavailable PAY ., DR ESCOBEDO Admitting Unavailable PAY ., DR ESCOBEDO Attending Unavailable PAY ., DR ESCOBEDO Consulting Unavailable AMY ROSS Consulting Unavailable JUWAN, DR CHRISTOPHER Young Admitting Unavailable JUWAN, DR CHRISTOPHER Young Attending Unavailable REQUEST, DR GARCIA LISTED Primary Care Unavailkamini GUIDRY, DR CHRISTOPHER Young Consulting Unavailable GM ., DR CLEANING Consulting Unavailable MANN, GIOVANA Consulting Unavailable FALVO, MAVIS Consulting Unavailable FAWWAD, DUNBAR H Admitting Unavailable FAWWAD, DUNBAR H Attending Unavailable FAWWAD, [facility] Primary Care Unavailable FAWWAD, DUNBAR H Consulting Unavailable Fawwad MD [facility] Primary Care Provider SHARAKOVA, DEBRA Referring [facility] Primary Care Unavailable SHARAKOVA, DEBRA Referring Unavailable [facility] Primary Care Unavailable Unavailable Unavailable GUI, GURMEET Attending Unavailable [facility] Primary Care Unavailable GUI, GURMEET Attending Unavailable [facility] Referring Unavailable FAWKYD, [facility] Primary Care Unavailable FAWKYD, [facility] Primary Care Unavailable Damion Cheek Attending Unavailable Jaxson Johnson Attending Unavailable Jamie BILLS Attending Unavailable [facility] Primary Care Unavailable [facility] Referring Unavailable [facility] Primary Care Unavailable NGUYỄN, TRUDY E Attending Unavailable [facility], [facility] Primary Care Unavailable NGUYỄN, TRUDY E Attending Unavailable [facility] Primary Care Unavailable [facility] Primary Care Unavailable NGUYỄN, TRUDY E Attending Unavailable NGUYỄN, TRUDY E Attending Unavailable [facility] Primary Care Unavailable NGUYỄN, TRUDY E Attending Unavailable [facility] Primary Care Unavailable NGUYỄN, TRUDY E Attending [facility] Primary Care Unavailable Bj TEJEDA Attending Unavailable [facility] Primary Care Unavailable NGUYỄN, TRUDY E Attending Unavailable NGUYỄN, TRUDY E Attending Unavailable [facility] Primary Care Unavailable Xavier STAFFORD Referring Unavailable Jaxson Johnson Admitting Unavailable Jaxson Johnson Attending [facility] Primary Care Unavailable Damion Cheek Admitting Unavailable Damion Cheek Attending Unavailable Gabby De Oliveira Attending Unavailable MD Donna [facility] Primary Care Provider MD Jacques East Admit Provider [phone] MD Jacques East Attending Provider SHAIKH THOMPSON Attending Unavailable MD Marquez eBal Attending Provider MARQUEZ BEAL Attending Unavailable SHAIKH THOMPSON Primary Care Unavailable Jacques East Admitting Unavailable Jacques East Attending Unavailable Shaikh Thompson Primary Care Unavailable Marquez Beal Admitting Unavail able Marquez Beal Attending Unavail able Shaikh Thompson Primary Care Unavailable Allergies Allergy Classification Reported Allergen(s) Allergy Type Date of Onset Reaction(s) Facility (19 sources) Codeine; Translations: [CODEINE] Drug Allergy 5 Swelling, Swelling (finding) [facility] (1 source) Codeine Drug Allergy 2 [facility] Repository Medications Current Medications Medication Drug Class(es) Dates Sig (Normalized) Sig (Original) albuterol 0.83 mg/ml inhalation solution (20 sources) beta2-Adrenergic Agonist Start: 02-14-2023 take 2.5 mg by inhalation every three hours Albuterol Sulfate Active 2.5 MG INHALATION Q3H 75 February 14, 2023 12:00am Start: 02-14-2023 Albuterol [...] TABLET Start Date: 04/05/22 Status: Ordered Start: 06-30-2022 take 81 mg by mouth once daily [...] 2021 11:00pm cefdinir 300 mg oral capsule (5 sources) Cephalosporin Antibacterial Start: 02-14-2023 take 300 mg by mouth twice daily Cefdinir Active 300 MG PO Twice daily 11 22February 14, 2023 12:00am Start: 02-10-2023 End: 02-17-2023 take 1 capsule by mouth every twelve hours cefdinir 300 mg Cap 300 mg = 1 cap(s), Oral, q12hr, X 7 day(s), # 14 cap(s), Refills(s) 0, Pharmacy: [facility]/pharmacy #[id number], 163, cm, 02/10/23 14:52:00 EST, Height/Length Dosing, 70, kg, 02/10/23 14:52:00 EST, Weight Dosing Start Date: 02/10/23 Stop Date: 02/17/23 Status: Ordered cephalexin 500 mg oral capsule (8 sources) Cephalosporin Antibacterial Start: 10-15-2022 End: 10-22-2022 take 1 capsule by mouth three times daily Keflex 500 mg Cap 500 mg = 1 cap(s), Oral, TID, X 7 day(s), # 21 cap(s), Refills(s) 0, Pharmacy: [facility]/pharmacy #[id number], 163, cm, 10/15/22 17:40:00 EDT, Height/Length Dosing, 72.3, kg, 10/15/22 17:40:00 EDT, Weight Dosing Start Date: 10/15/22 Stop Date: 10/22/22 Status: Ordered Start: 08-17-2021 End: 03-13-2022 take 500 mg by mouth four times daily Cephalexin Discontinued 500 MG PO Four times daily 01 20August 16, 2021 11:00pm March 13, 2022 8:07am docusate sodium 100 mg oral capsule (2 sources) Start: 02-14-2023 take 100 mg by mouth twice daily Docusate Sodium Active 100 MG PO Twice daily February 14, 2023 12:00am doxycycline hyclate 100 mg oral capsule (2 sources) Tetracycline-class Drug Start: 02-14-2023 take 100 mg by mouth twice daily Doxycycline Hyclate Active 100 MG PO Twice daily 10 5 February 14, 2023 12:00am fluticasone propionate 0.05 mg/actuat metered dose nasal spray (2 sources) Corticosteroid Start: 03-19-2022 take 2 spray(s) nasal route once daily Fluticasone Propionate 50 MCG/ACT 2 sprays Nasally Once a day for 14 day(s) Feb, Active 12 hr guaiFENesin 600 mg extended release oral tablet (2 sources) Start: 02-14-2023 take 2 tablets by mouth [...] Comment on above: Take 1 tablet by once daily. 24 hr metoprolol succinate 100 mg extended release oral tablet (20 sources) beta-Adrenergic Mitch Start: 08-17-2021 take 100 mg by mouth once daily Metoprolol Succinate Active 100 MG PO Daily August 16, 2021 11:00pm Comment on above: Take 100 mg by mouth . omeprazole 40 mg delayed release oral capsule (14 sources) Proton Pump Inhibitor Start: 06-14-2022 take 1 capsule by mouth once daily omeprazole 40 mg Cap-DR 40 mg = 1 cap(s), Oral, Daily, # 30 cap(s), Refills(s) 2, [facility]acy: [facility] [id number], 163, cm, 06/14/22 13:00:00 EDT, Height/Length Dosing, 74.3, kg, 06/14/22 13:00:00 EDT, Weight Dosing Start Date: 06/14/22 Status: Ordered Start: 08-17-2021 End: 03-13-2022 take 20 mg by mouth once daily Omeprazole Discontinued 20 MG PO Daily August 16, 2021 11:00pm March 13, 2022 8:07am predniSONE 10 mg oral tablet (7 sources) Start: 02-14-2023 Prednisone Act jessica 10 [...] day(s), # 15 tab(s), Refills(s) 0, Pharmacy: [facility]/pharmacy #[id number], 163, cm, 02/10/23 14:52:00 EST, [...] Sig (Original) amLODIPine 10 mg oral tablet (17 sources) Dihydropyridine Calcium Channel Mitch Start: 2 End: 3 take 10 mg by mouth once daily Amlodipine Discontinued 10 MG PO Daily August 16, 2021 11:00pm March 13, 2022 8:07am cefTRIAXone (3 sources) Cephalosporin Antibacterial Start: 0 Rocephin 500 mg Jan, 500 mg hydroCHLOROthiazide 12.5 mg / lisinopril 10 mg oral tablet (14 sources) Thiazide Diuretic, Angiotensin Converting Enzyme Inhibitor [...] chloride 10 meq extended release oral tablet (6 sources) Start: 08-18-19 End: 03-13-19 23 take 10 mEq by mouth twice daily Potassium Chloride Discontinued 10 MEQ PO Twice daily 31 08August 16, 2021 11:00pm March 13, 2022 8:07am spironolactone 25 mg oral tablet (11 sources) Aldosterone Antagonist Start: 08-18-19 End: 03-13-19 23 take 25 mg by mouth once daily Spironolactone Discontinued 25 MG PO Daily August 16, 2021 11:00pm March 13, 2022 8:08am Triamcinolone (3 sources) Corticosteroid Start: 07-31-19 15 KENALOG - 10 mg Jul, 60 mg Problems Active Problems Problem Classification Problem Date Documented Da te Episodic/Chronic Acute cerebrovascular disease (20 sources) Embolic stroke; Translations: [Cerebral infarction, unspecified] Onset: 2 Resolved: 3 08-16-2021 Chronic Chronic kidney disease (17 sources) Chronic kidney disease stage 3B ; [...] 2 Episodic Other and unspecified benign neoplasm (5 sources) History of polyp of colon; Translations: [Personal history of colonic polyps] 03-13-2022 Episodic Other and unspecified benign neoplasm (1 source) Personal history of colonic polyps; Translations: [Personal history of colonic polyps] 03-13-2022 [...] Onset: 3 Episodic Other lower respiratory disease (2 sources) Dyspnea; Translations: [Shortness of breath] 02-12-2023 Episodic Other lower respiratory disease (2 sources) Shortness of breath; Translations: [Shortness of breath] [...] caused by tuberculosis or sexually transmitted disease) (5 sources) Community acquired pneumonia; Translations: [Pneumonia, unspecified organism] Onset: 3 02-12-2023 Episodic Residual codes; unclassified (6 sources) Delirium; Translations: [Disorientation, unspecified] 08-15-2021 Episodic Residual codes; unclassified (6 sources) Altered mental status; Translations: [Altered mental status, unspecified] 08-15-2021 Episodic Residual codes; unclassified (3 sources) Altered mental status, unspecified; Translations: [Altered mental status] Episodic Residual codes; unclassified (1 source) Tobacco use; Translations: [Tobacco abuse] Onset: 3 Episodic Respiratory failure; insufficiency; arrest (adult) (5 sources) Acute respiratory failure; Translations: [Acute respiratory [...] History of endometrial ablation Onset: 6 10-15-2022 Urinary tract infections (13 sources) Pyelonephritis; Translations: [Tubulo-interstitial nephritis, not specified [...] SCREENING HUMAN PAPILLOMAVIRUS] Onset: 02-27-2022 Episodic Other hematologic conditions (6 sources) Other [...] Test Name Value Interpretation Reference Range Facility Aspartate Amino Transferaseo n 03-12-2023 AST [Catalytic activity/Vol] 20 U/L Normal [facility] Comment on above: Order Comment: PT FA STED 121 HOURS Performed By: #### A ST, LIPID, BMP #### [address] Aspartate aminotransferase [ Enzymatic activity/volume] in Serum or PlasmaOrdered By: Marquez Beal on 03-12-2023 AST [Catalytic activity/Vol] 20 U/L [address] Basic Metabolic Panelon 02-19 Anion gap [Moles/Vol] 8.4 mmol/L Normal 6.0-15.0 [facility] Comment on above: Order Comment: PT FA STED 121 HOURS Performed By: #### A ST, LIPID, BMP #### [facility] [address] [id number] [place] Calcium [Mass/Vol] 9.8 mg/dL Normal 8.6-10.3 [facility] Comment on above: Order Comment: PT FA STED 121 HOURS Performed By: #### A ST, LIPID, BMP #### [facility] [address] [id number] [place] Chloride [Moles/Vol] 108 mmol/L High 98-107 [facility] Comment on above: Order Comment: PT FA STED 121 HOURS Performed By: #### A ST, LIPID, BMP #### [facility] [address] [place] [address] [place] CO2 [Moles/Vol] 30.0 mmol/L Normal 21.0-31.0 [facility] Comment on above: Order Comment: PT FA STED 121 HOURS Performed By: #### A ST, LIPID, BMP #### [facility] [address] [place] [address] [place] Creatinine [Mass/Vol] 1.39 mg/dL High 0.60-1.20 [facility] Comment on above: Order Comment: PT FA STED 121 HOURS Performed By: #### A ST, LIPID, BMP #### [facility] [address] [place] [address] [place] GFR/1.73 sq M.predicted MDRD (S/P/Bld) [Vol rate/Area] 43.442 mL/min/{1.73_m2} Normal [facility] Comment on above: Order Comment: PT FA STED 121 HOURS Performed By: #### A ST, LIPID, BMP #### [facility] [address] [id number] [place] Glucose [Mass/Vol] 93 mg/dL Normal 70-100 [facility] Comment on above: Order Comment: PT FA STED 121 HOURS Result Comment: [place] om Glucose Reference Range is dependent on time and content of last meal. Glucose of more than 200 mg/dL in a nonstressed, ambulatory subject supports the diagnosis of Diabetes Mellitus. ADA recommended reference range Performed By: #### A ST, LIPID, BMP #### [facility] [address] [id number] [place] Potassium [Moles/Vol] 5.4 mmol/L High 3.5-5.1 [facility] Comment on above: Order Comment: PT FA STED 121 HOURS Performed By: #### A ST, LIPID, BMP #### [facility] [address] [place] [address] [place] Sodium [Moles/Vol] 141 mmol/L Normal 136-145 [facility] Comment on above: Order Comment: PT FA STED 121 HOURS Performed By: #### A ST, LIPID, BMP #### [facility] [address] [id number] [place] Urea nitrogen [Mass/Vol] 18 mg/dL Normal 7-25 [facility] Comment on above: Order Comment: PT FA STED 121 HOURS Performed By: #### A ST, LIPID, BMP #### [facility] [address] [place] [address] [place] Calcium [Mass/volume] in Ser um or PlasmaOrdered By: Marquez Beal on 03-12-2023 Calcium [Mass/Vol] 9.8 mg/dL 8.6-10.3 [facility] Carbon dioxide, total [Moles /volume] in Serum or PlasmaOrdered By: Marquez Beal on 03-12-2023 CO2 [Moles/Vol] 30.0 mmol/L 21.0-31.0 [facility] Chloride [Moles/volume] in S oralia or PlasmaOrdered By: Marquez Beal on 03-12-2023 Chloride [Moles/Vol] 108 mmol/L 98-107 [facility] Cholesterol [Mass/volume] in Serum or PlasmaOrdered By: Marquez Beal on 03-12-2023 Cholesterol [Mass/Vol] 171 mg/dL 140-200 [facility] Comment on above: Chol less than 200 m g/dl low riskChol 201-239 mg/dl borderline riskChol 240 mg/dl and greater high risk Cholesterol in LDL Calc [Mas s/Vol]Ordered By: Marquez Beal on 03-12-2023 Cholesterol in LDL [Mass/Vol] 93 mg/dL 0-100 [facility] Comment on above: LDL ATP III CLASSIFI CATIONLDL less than 100 mg/dL OptimalLDL 100-129 mg/dL Near or above optimalLDL 130-159 mg/dL Borderline highLDL 160-189 mg/dL HighLDL greater than 189 mg/dL Very high Cholesterol in VLDL Calc [Ma ss/Vol]Ordered By: Marquez Beal on 03-12-2023 Cholesterol in VLDL [Mass/Vol] 33 mg/dL [facility] Creatinine [Mass/volume] in Serum or PlasmaOrdered By: Marquez Beal on 03-12-2023 Creatinine [Mass/Vol] 1.39 mg/dL 0.60-1.20 [facility] Glucose [Mass/volume] in Ser um or PlasmaOrdered By: Marquez Beal on 03-12-2023 Glucose [Mass/Vol] 93 mg/dL 70-100 [facility] Comment on above: ADA recommended refe rence rangeRandom Glucose Reference Range is dependent on time and content of last meal. Glucose of more than 200 mg/dL in a nonstressed, ambulatory subject supports the diagnosis of Diabetes Mellitus. Lipid Panelon 03-12-2023 Cholesterol [Mass/Vol] 171 mg/dL Normal 140-200 [facility] Comment on above: Order Comment: PT FA STED 121 HOURS Result Comment: Chol less than 200 mg/dl low risk Chol 201-239 mg/dl borderline risk Chol 240 mg/dl and greater high risk Performed By: #### A ST, LIPID, BMP #### [facility] [address] [id number] [place] Cholesterol in HDL [Mass/Vol] 45 mg/dL Normal 23-92 [facility] Comment on above: Order Comment: PT FA STED 121 HOURS Result Comment: HDL CHOL ATP-III CLASSIFICATION Cardiovascular Risk HDL > or equal to 60 mg/dL LOW HDL < 40 mg/dL HIGH Performed By: #### A ST, LIPID, BMP #### [facility] [address] [place] [address] [place] Cholesterol.total/Chol esterol in HDL [Mass ratio] 3.8 {ratio} Normal <5.0 [facility] Comment on above: Order Comment: PT FA STED 121 HOURS Result Comment: PERF ORMED BY: [place] [address] PATHOLOGIST MANAGER ENDOSCOPY JERAMY CALDWELL M.D. Performed By: #### A ST LIPID, BMP #### [facility] [address] [place] [address] LDL Cholesterol,Calculated 93 mg/dL Normal 0-100 [facility] Comment on above: Order Comment: PT FA STED 121 HOURS Result Comment: LDL ATP III CLASSIFICATION LDL less than 100 mg/dL Optimal LDL 100-129 mg/dL Near or above optimal LDL 130-159 mg/dL Borderline high LDL 160-189 mg/dL High LDL greater than 189 mg/dL Very high Performed By: #### A ST LIPID, BMP #### [facility] [address] [place] [address] Triglyceride w/Reflex 165 mg/dL High 0-149 [facility] Comment on above: Order Comment: PT FA STED 121 HOURS Result Comment: TRIG ATP III CLASSIFICATION TRIG less than 150 mg/dL Normal TRIG 150-199 mg/dL Borderline high TRIG 200-500 mg/dL High TRIG greater than 500 mg/dL Very high Standard traceable to the Center for Disease Conrtrol and Prevention (CDC) test method. Performed By: #### A ST LIPID, BMP #### [facility] [address] [place] [address] VLDL CHOLESTEROL 33 mg/dL Normal [facility] Comment on above: Order Comment: PT FA STED 121 HOURS Performed By: #### A ST LIPID, BMP #### [facility] [address] [place] [address] No Panel InformationOrdered By: Marquez Beal on 03-12-2023 Estimated GFR (CKD-EPI) 43.442 mL/Min [facility] Creatinine Clearance (Chem N/A [facility] Potassium [Moles/volume] in Serum or PlasmaOrdered By: Marquez Beal on 03-12-2023 Potassium [Moles/Vol] 5.4 mmol/L 3.5-5.1 [facility] Serum or plasma anion gap de terminationOrdered By: Marquez Beal on 03-12-2023 Anion gap [Moles/Vol] 8.4 mmol/L 6.0-15.0 [facility] Serum or plasma high density lipoprotein (HDL) cholesterol measurementOrdered By: Marquez Beal on 03-12-2023 Cholesterol in HDL [Mass/Vol] 45 mg/dL [facility] Comment on above: HDL CHOL ATP-III CLA SSIFICATION Cardiovascular RiskHDL > or equal to 60 mg/dL LOWHDL < 40 mg/dL HIGH Serum or plasma total choles terol/high density lipoprotein (HDL) cholesterol mass ratOrdered By: Marquez Beal on 03-12-2023 Cholesterol.total/Chol esterol in HDL [Mass ratio] 3.8 {ratio} <5.0 [facility] Sodium [Moles/volume] in Ser um or PlasmaOrdered By: Marquez Beal on 03-12-2023 Sodium [Moles/Vol] 141 mmol/L 136-145 [facility] Triglyceride [Mass/volume] i n Serum or PlasmaOrdered By: Marquez Beal on 03-12-2023 Triglyceride [Mass/Vol] 165 mg/dL 0-149 [facility] Comment on above: TRIG ATP III CLASSIF ICATIONTRIG less than 150 mg/dL NormalTRIG 150-199 mg/dL Borderline highTRIG 200-500 mg/dL High TRIG greater than 500 mg/dL Very highStandard traceable to the Center for Disease Conrtrol and Prevention (CDC) test method. Urea nitrogen [Mass/volume] in Serum or PlasmaOrdered By: Marquez Beal on 03-12-2023 Urea nitrogen [Mass/Vol] 18 mg/dL 09-11 [facility] Basic Metabolic Panelon 12-2 Anion gap [Moles/Vol] 12.2 mmol/L Normal 6.0-15.0 [facility] Comment on above: Performed By: #### C JUANITA, JACINTO ####[facility] [id number] [place] [address] [facility] Calcium [Mass/Vol] 9.4 mg/dL Normal 8.6-10.3 [facility] Comment on above: Performed By: #### C JUANITA, BMP ####[facility] [id number] [id number] [facility] Chloride [Moles/Vol] 103 mmol/L Normal 98-107 [facility] Comment on above: Performed By: #### C BC, BMP ####[id number] [id number] [facility] CO2 [Moles/Vol] 26.2 mmol/L Normal 21.0-31.0 [facility] Comment on above: Performed By: #### C BC, BMP ####[id number] [place] [id number] [facility] Creatinine [Mass/Vol] 1.35 mg/dL High 0.60-1.20 [facility] Comment on above: Performed By: #### C BC, BMP ####[id number] Creatinine Clr Calc Pharmacy 40.59 [facility] Comment on above: Result Comment: PERF ORMED BY: [facility] [address] [place] [address] PATHOLOGIST MANAGER ENDOSCOPY JERAMY CALDWELL M.D. Performed By: #### C JUANITA, BMP ####[id number] GFR/1.73 sq M.predicted MDRD (S/P/Bld) [Vol rate/Area] 44.991 mL/min/{1.73_m2} [facility] Comment on above: Performed By: #### C BC, BMP ####[address] [place] [id number] [facility] Glucose [Mass/Vol] 136 mg/dL High 70-100 [facility] Comment on above: Result Comment: [place] Glucose Reference Range is dependent on time and content of last meal. Glucose of more than 200 mg/dL in a nonstressed, ambulatory subject supports the diagnosis of Diabetes Mellitus. ADA recommended reference range Performed By: #### C BC, BMP ####[id number] [place] [id number] [facility] Potassium [Moles/Vol] 5.4 mmol/L High 3.5-5.1 [facility] Comment on above: Performed By: #### C BC, BMP ####[facility] [place] [address] [facility] Sodium [Moles/Vol] 136 mmol/L Normal 136-145 [facility] Comment on above: Performed By: #### C BC, BMP ####[facility] [address] [place] [address] [facility] Urea nitrogen [Mass/Vol] 33 mg/dL High 7-25 [facility] Comment on above: Performed By: #### C BC, BMP ####[facility] [id number] [place] [address] [facility] Basophils Auto (Bld) [#/Vol] Ordered By: Obpatriciadah Daromar on 02-14-2023 Basophils (Bld) [#/Vol] 0.0 10*3/uL 0.0-0.2 [facility] Basophils/100 WBC Auto (Bld) Ordered By: Obaydah Daromar on 02-14-2023 Basophils/100 WBC (Bld) 0.1 % . [facility] Calcium [Mass/volume] in Ser um or PlasmaOrdered By: Obaydah Daromar on 02-14-2023 Calcium [Mass/Vol] 9.4 mg/dL 8.6-10.3 [facility] Carbon dioxide, total [Moles /volume] in Serum or PlasmaOrdered By: Obaydah Daromar on 02-14-2023 CO2 [Moles/Vol] 26.2 mmol/L 21.0-31.0 [facility] Chloride [Moles/volume] in S oralia or PlasmaOrdered By: Obaydah Daromar on 02-14-2023 Chloride [Moles/Vol] 103 mmol/L 98-107 [facility] Complete Blood Count Auto Di ffon 02-14-2023 Basophils (Bld) [#/Vol] 0.0 10*3/uL Normal 0.0-0.2 [facility] Comment on above: Result Comment: PERF ORMED BY: [facility] [address] [place] [address] PATHOLOGIST MANAGER ENDOSCOPY JERAMY CALDWELL M.D. Performed By: #### C BC, BMP ####[place] [id number] [place] [id number] [facility] Basophils/100 WBC (Bld) 0.1 % Normal . [facility] Comment on above: Performed By: #### C BC, BMP ####[place] [address] [place] [address] [facility] Eosinophils (Bld) [#/Vol] 0.0 10*3/uL Normal 0.0-0.45 [facility] Comment on above: Performed By: #### C BC, BMP ####[place] [id number] [place] [id number] [facility] Eosinophils/100 WBC (Bld) 0.0 % Normal . [facility] Comment on above: Performed By: #### C BC, BMP ####[place] [id number] [place] [id number] [facility] Erythrocyte distribution width (RBC) [Ratio] 14.6 % Normal 11.9-15.3 [facility] Comment on above: Performed By: #### C BC, BMP ####[place] [id number] [place] [id number] [facility] Hematocrit (Bld) [Volume fraction] 44.5 % Normal 34.0-46.4 [facility] Comment on above: Performed By: #### C BC, BMP ####[place] [id number] [facility] Hemoglobin (Bld) [Mass/Vol] 15.1 g/dL Normal 11.8-15.4 [facility] Comment on above: Performed By: #### C BC, BMP ####[place] [address] [place] [address] [facility] Lymphocytes (Bld) [#/Vol] 1.0 10*3/uL Normal 1.00-4.8 [facility] Comment on above: Performed By: #### C BC, BMP ####[place] [address] [place] [address] [facility] Lymphocytes/100 WBC (Bld) 7.6 % Normal . [facility] Comment on above: Performed By: #### C BC, BMP ####[place] [address] [place] [id number] [facility] MCH (RBC) [Entitic mass] 30.6 pg Normal 24.7-34.3 [facility] Comment on above: Performed By: #### C BC, BMP ####[place] [id number] [place] [id number] [facility] MCV (RBC) [Entitic vol] 90.4 fL Normal 80-100 [facility] Comment on above: Performed By: #### C BC, BMP ####[place] [id number] [place] [id number] [facility] Mean Corpuscular HGB Conc 33.9 g/dL Normal 32.0-35.0 [facility] Comment on above: Performed By: #### C BC, BMP ####[address] Monocytes (Bld) [#/Vol] 0.6 10*3/uL Normal 0.0-0.8 [facility] Comment on above: Performed By: #### C BC, BMP ####[place] [id number] [facility] Monocytes/100 WBC (Bld) 4.7 % Normal . [facility] Comment on above: Performed By: #### C BC, BMP ####[place] [id number] [facility] Neutrophils (Bld) [#/Vol] 11.1 10*3/uL High 1.8-7.7 [facility] Comment on above: Performed By: #### C BC, BMP ####[place] [id number] [facility] Neutrophils/100 WBC (Bld) 87.6 % Normal . [facility] Comment on above: Performed By: #### C BC, BMP ####[place] [id number] [facility] NRBC% 0.0 /100{WBC} Normal 0-0.5 [facility] Comment on above: Performed By: #### C JUANITA, BMP ####[place] [address] [place] [address] [facility] Platelet mean volume (Bld) [Entitic vol] 8.5 fL Normal 6.3-10.7 [facility] Comment on above: Performed By: #### C JUANITA, BMP ####[place] [address] [place] [address] [facility] Platelets (Bld) [#/Vol] 220 10*3/uL Normal 150-450 [facility] Comment on above: Performed By: #### C JUANITA, BMP ####[place] [address] [place] [address] [facility] RBC (Bld) [#/Vol] 4.92 10*6/uL Normal 3.60-5.00 [facility] Comment on above: Performed By: #### C JUANITA, BMP ####[address] [address] [facility] WBC (Bld) [#/Vol] 12.7 10*3/uL High 3.8-11.6 [facility] Comment on above: Performed By: #### Kait GRANT, BMP ####[place] [id number] [facility] Creatinine [Mass/volume] in Serum or PlasmaOrdered By: Obpatriciadah Antioneomar on 02-14-2023 Creatinine [Mass/Vol] 1.35 mg/dL 0.60-1.20 [facility] Eosinophils Auto (Bld) [#/Vo l]Ordered By: Obaydah Daromar on 02-14-2023 Eosinophils (Bld) [#/Vol] 0.0 10*3/uL 0.0-0.45 [facility] Eosinophils/100 WBC Auto (Bl d)Ordered By: Obaydah Daromar on 02-14-2023 Eosinophils/100 WBC (Bld) 0.0 % . [facility] Erythrocyte distribution wid th Auto (RBC) [Ratio]Ordered By: Obaydah Daromar on 02-14-2023 Erythrocyte distribution width (RBC) [Ratio] 14.6 % 11.9-15.3 [facility] Glucose [Mass/volume] in Ser um or PlasmaOrdered By: Jacques East on 02-14-2023 Glucose [Mass/Vol] 136 mg/dL 70-100 [facility] Comment on above: ADA recommended refe rence rangeRandom Glucose Reference Range is dependent on time and content of last meal. Glucose of more than 200 mg/dL in a nonstressed, ambulatory subject supports the diagnosis of Diabetes Mellitus. Hematocrit Auto (Bld) [Volum e fraction]Ordered By: Jacques East on 02-14-2023 Hematocrit (Bld) [Volume fraction] 44.5 % 34.0-46.4 [facility] Hemoglobin [Mass/volume] in BloodOrdered By: Jacques Chirinosr on 02-14-2023 Hemoglobin (Bld) [Mass/Vol] 15.1 g/dL 11.8-15.4 [facility] Leukocytes [#/volume] correc elliot for nucleated erythrocytes in Blood by Automated counOrdered By: Jacques East on 02-14-2023 WBC corrected for nucl RBC Auto (Bld) [#/Vol] 12.7 10*3/uL 3.8-11.6 [facility] Lymphocytes Auto (Bld) [#/Vo l]Ordered By: patriciaenrique Talbotomar on 02-14-2023 Lymphocytes (Bld) [#/Vol] 1.0 10*3/uL 1.00-4.8 [facility] Lymphocytes/100 WBC Auto (Bl d)Ordered By: Jacques Chirinosr on 02-14-2023 Lymphocytes/100 WBC (Bld) 7.6 % . [facility] MCH Auto (RBC) [Entitic mass ]Ordered By: Jacques Chirinosr on 02-14-2023 MCH (RBC) [Entitic mass] 30.6 pg 24.7-34.3 [facility] MCHC Auto (RBC) [Mass/Vol]Or dered By: Jacques Talbotomar on 02-14-2023 MCHC (RBC) [Mass/Vol] 33.9 g/dL 32.0-35.0 [facility] MCV Auto (RBC) [Entitic vol] Ordered By: Obpatriciadaenrique Talbotomar on 02-14-2023 MCV (RBC) [Entitic vol] 90.4 fL 80-100 [facility] Monocytes Auto (Bld) [#/Vol] Ordered By: Obpatriciadaenrique Daromar on 02-14-2023 Monocytes (Bld) [#/Vol] 0.6 10*3/uL 0.0-0.8 [facility] Monocytes/100 WBC Auto (Bld) Ordered By: Obpatriciadah Daromar on 02-14-2023 Monocytes/100 WBC (Bld) 4.7 % . [facility] Neutrophils Auto (Bld) [#/Vo l]Ordered By: Obpatriciadaenrique Talbotomar on 02-14-2023 Neutrophils (Bld) [#/Vol] 11.1 10*3/uL 1.8-7.7 [facility] Neutrophils/100 WBC Auto (Bl d)Ordered By: Obpatriciadaenrique Talbotomar on 02-14-2023 Neutrophils/100 WBC (Bld) 87.6 % . [facility] No Panel InformationOrdered By: Jacques Talbotomar on 02-14-2023 Estimated GFR (CKD-EPI) 44.991 mL/Min [facility] Creatinine Clearance (Chem 40.59 [facility] Nucleated erythrocytes [Pres ence] in Blood by Automated countOrdered By: Jacques Talbotomar on 02-14-2023 Nucleated RBC Auto Ql (Bld) 0.0 /100{WBC} 0-0.5 [facility] Platelet mean volume Auto (B ld) [Entitic vol]Ordered By: Obpatriciadaenrique Talbotomar on 02-14-2023 Platelet mean volume (Bld) [Entitic vol] 8.5 fL 6.3-10.7 [facility] Platelets Auto (Bld) [#/Vol] Ordered By: Obpatriciadaenrique Talbotomar on 02-14-2023 Platelets (Bld) [#/Vol] 220 10*3/uL 150-450 [facility] Potassium [Moles/volume] in Serum or PlasmaOrdered By: Obpatriciadaenrique Talbotomar on 02-14-2023 Potassium [Moles/Vol] 5.4 mmol/L 3.5-5.1 [facility] RBC Auto (Bld) [#/Vol]Ordere d By: Obpatriciadaenrique Daromar on 02-14-2023 RBC (Bld) [#/Vol] 4.92 10*6/uL 3.60-5.00 [facility] Serum or plasma anion gap de terminationOrdered By: Obpatriciadah Daromar on 02-14-2023 Anion gap [Moles/Vol] 12.2 mmol/L 6.0-15.0 [facility] Sodium [Moles/volume] in Ser um or PlasmaOrdered By: Obpatriciadah Daromar on 02-14-2023 Sodium [Moles/Vol] 136 mmol/L 136-145 [facility] Urea nitrogen [Mass/volume] in Serum or PlasmaOrdered By: Obpatriciadah Daromar on 02-14-2023 Urea nitrogen [Mass/Vol] 33 mg/dL 7-25 [facility] WBC Auto (Bld) [#/Vol]Ordere d By: Obpatriciadah Daromar on 02-14-2023 WBC (Bld) [#/Vol] 12.7 10*3/uL 3.8-11.6 [facility] Alanine aminotransferase [En zymatic activity/volume] in Serum or PlasmaOrdered By: Obpatriciadah Daromar on 02-13-2023 ALT [Catalytic activity/Vol] 16 U/L 7-52 [facility] Albumin [Mass/volume] in Ser um or Plasma by Bromocresol green (BCG) dye binding methoOrdered By: Obpatriciadah Daromar on 02-13-2023 Albumin BCG dye [Mass/Vol] 4.0 g/dL 3.5-5.7 [facility] Alkaline phosphatase [Enzyma tic activity/volume] in Serum or PlasmaOrdered By: Obaydah Daromar on 02-13-2023 ALP [Catalytic activity/Vol] 57 U/L 34-104 [facility] Aspartate aminotransferase [ Enzymatic activity/volume] in Serum or PlasmaOrdered By: Obpatriciadah Daromar on 02-13-2023 AST [Catalytic activity/Vol] 22 U/L 13-39 [facility] Bilirubin.total [Mass/volume ] in Serum or PlasmaOrdered By: Jacques East on 02-13-2023 Bilirubin [Mass/Vol] 0.6 mg/dL 0.3-1.0 [facility] Complete Blood Count Auto Di ffon 02-13-2023 Basophils (Bld) [#/Vol] 0.0 10*3/uL Normal 0.0-0.2 [facility] Comment on above: Result Comment: PERF ORMED BY: [facility] [address] [facility] [place] [address] PATHOLOGIST MANAGER ENDOSCOPY JERAMY CALDWELL M.D. Performed By: #### C JUANITA MG, CMP ####[address] Basophils/100 WBC (Bld) 0.2 % Normal . [facility] Comment on above: Performed By: #### C BC MG, CMP ####[place] [id number] [facility] Eosinophils (Bld) [#/Vol] 0.0 10*3/uL Normal 0.0-0.45 [facility] Comment on above: Performed By: #### C BC MG, CMP ####[place] [id number] [facility] Eosinophils/100 WBC (Bld) 0.0 % Normal . [facility] Comment on above: Performed By: #### C BC MG, CMP ####[place] [id number] [facility] Erythrocyte distribution width (RBC) [Ratio] 14.4 % Normal 11.9-15.3 [facility] Comment on above: Performed By: #### C BC MG, CMP ####[place] [id number] [facility] Hematocrit (Bld) [Volume fraction] 43.2 % Normal 34.0-46.4 [facility] Comment on above: Performed By: #### C BC MG, CMP ####[place] [address] Hemoglobin (Bld) [Mass/Vol] 14.6 g/dL Normal 11.8-15.4 [facility] Comment on above: Performed By: #### C BC, MG, CMP ####[address] Lymphocytes (Bld) [#/Vol] 2.7 10*3/uL Normal 1.00-4.8 [facility] Comment on above: Performed By: #### C BC, MG, CMP ####[place] [id number] [facility] Lymphocytes/100 WBC (Bld) 18.3 % Normal . [facility] Comment on above: Performed By: #### C BC, MG, CMP ####[address] MCH (RBC) [Entitic mass] 30.5 pg Normal 24.7-34.3 [facility] Comment on above: Performed By: #### C BC, MG, CMP ####[place] [id number] [facility] MCV (RBC) [Entitic vol] 90.1 fL Normal 80-100 [facility] Comment on above: Performed By: #### C BC, MG, CMP ####[place] [id number] [facility] Mean Corpuscular HGB Conc 33.8 g/dL Normal 32.0-35.0 [facility] Comment on above: Performed By: #### C BC, MG, CMP ####[address] Monocytes (Bld) [#/Vol] 1.2 10*3/uL High 0.0-0.8 [facility] Comment on above: Performed By: #### C BC, MG, CMP ####[place] [id number] [facility] Monocytes/100 WBC (Bld) 7.9 % Normal . [facility] Comment on above: Performed By: #### C BC, MG, CMP ####[address] Neutrophils (Bld) [#/Vol] 11.0 10*3/uL High 1.8-7.7 [facility] Comment on above: Performed By: #### C BC, MG, CMP ####[place] [id number] [facility] Neutrophils/100 WBC (Bld) 73.6 % Normal . [facility] Comment on above: Performed By: #### C BC, MG, CMP ####[address] NRBC% 0.1 /100{WBC} Normal 0-0.5 [facility] Comment on above: Performed By: #### C BC, MG, CMP ####[address] Platelet mean volume (Bld) [Entitic vol] 7.8 fL Normal 6.3-10.7 [facility] Comment on above: Performed By: #### C BC, MG, CMP ####[address] Platelets (Bld) [#/Vol] 212 10*3/uL Normal 150-450 [facility] Comment on above: Performed By: #### C BC, MG, CMP ####[address] RBC (Bld) [#/Vol] 4.80 10*6/uL Normal 3.60-5.00 [facility] Comment on above: Performed By: #### C BC, MG, CMP ####[place] [id number] [facility] WBC (Bld) [#/Vol] 14.9 10*3/uL High 3.8-11.6 [facility] Comment on above: Performed By: #### C BC, MG, CMP ####[place] [id number] [facility] Comprehensive Metabolic Pane franco 02-13-2023 Albumin [Mass/Vol] 4.0 g/dL Normal 3.5-5.7 [facility] Comment on above: Performed By: #### C BC MG, CMP ####[facility] [place] [id number] [facility] Albumin/Globulin [Mass ratio] 1.6 {ratio} Normal [facility] Comment on above: Performed By: #### C BC MG, CMP ####[place] [id number] [place] [id number] [facility] ALP [Catalytic activity/Vol] 57 U/L Normal 34-104 [facility] Comment on above: Performed By: #### C JUANITA MG, CMP ####[place] [id number] [place] [id number] [facility] ALT [Catalytic activity/Vol] 16 U/L Normal 7-52 [facility] Comment on above: Performed By: #### C BC MG, CMP ####[place] [id number] [place] [id number] [facility] Anion gap [Moles/Vol] 9.4 mmol/L Normal 6.0-15.0 [facility] Comment on above: Performed By: #### C BC MG, CMP ####[place] [id number] [place] [id number] [facility] AST [Catalytic activity/Vol] 22 U/L Normal 13-39 [facility] Comment on above: Performed By: #### C BC MG, CMP ####[place] [id number] [place] [id number] [facility] Bilirubin [Mass/Vol] 0.6 mg/dL Normal 0.3-1.0 [facility] Comment on above: Performed By: #### C BC MG, CMP ####[place] [id number] [facility] Calcium [Mass/Vol] 9.2 mg/dL Normal 8.6-10.3 [facility] Comment on above: Performed By: #### C BC MG, CMP ####[facility] Chloride [Moles/Vol] 105 mmol/L Normal 98-107 [facility] Comment on above: Performed By: #### C BC MG, CMP ####[place] [id number] [facility] CO2 [Moles/Vol] 27.1 mmol/L Normal 21.0-31.0 [facility] Comment on above: Performed By: #### C BC MG, CMP ####[address] Creatinine [Mass/Vol] 1.45 mg/dL High 0.60-1.20 [facility] Comment on above: Performed By: #### C BC MG, CMP ####[address] Creatinine Clr Calc Pharmacy 37.90 [facility] Comment on above: Performed By: #### C BC MG, CMP ####[address] GFR/1.73 sq M.predicted MDRD (S/P/Bld) [Vol rate/Area] 41.294 mL/min/{1.73_m2} [facility] Comment on above: Performed By: #### C BC, MG, CMP ####[address] Globulin (S) [Mass/Vol] 2.5 g/dL [facility] Comment on above: Performed By: #### C BC, MG, CMP ####[address] Glucose [Mass/Vol] 92 mg/dL Normal 70-100 [facility] Comment on above: Result Comment: [place] Glucose Reference Range is dependent on time and content of last meal. Glucose of more than 200 mg/dL in a nonstressed, ambulatory subject supports the diagnosis of Diabetes Mellitus. ADA recommended reference range Performed By: #### C BC, MG, CMP ####[address] Potassium [Moles/Vol] 4.5 mmol/L Normal 3.5-5.1 [facility] Comment on above: Performed By: #### C BC, MG, CMP ####[place] [id number] [place] [id number] [facility] Protein [Mass/Vol] 6.5 g/dL Normal 6.4-8.9 [facility] Comment on above: Performed By: #### C BC, MG, CMP ####[place] [id number] [place] [id number] [facility] Sodium [Moles/Vol] 137 mmol/L Normal 136-145 [facility] Comment on above: Performed By: #### C BC, MG, CMP ####[place] [address] Urea nitrogen [Mass/Vol] 28 mg/dL High 7-25 [facility] Comment on above: Performed By: #### C BC, MG, CMP ####[place] [address] [place] [id number] [facility] Globulin Calc (S) [Mass/Vol] Ordered By: Obpatriciadaenrique Talbotomar on 02-13-2023 Globulin (S) [Mass/Vol] 2.5 g/dL [facility] Magnesiumon 02-13-2023 Magnesium [Mass/Vol] 1.8 mg/dL Low 1.9-2.7 [facility] Comment on above: Result Comment: PERF ORMED BY: [facility] [address] [place] [id number] PATHOLOGIST MANAGER ENDOSCOPY JERAMY CALDWELL M.D. Performed By: #### C BC, MG, CMP ####[place] [id number] [place] [id number] [facility] Magnesium [Mass/volume] in S oralia or PlasmaOrdered By: Obaydah Daromar on 02-13-2023 Magnesium [Mass/Vol] 1.8 mg/dL 1.9-2.7 [facility] Protein [Mass/volume] in Ser um or PlasmaOrdered By: Obaydah Daromar on 02-13-2023 Protein [Mass/Vol] 6.5 g/dL 6.4-8.9 [facility] Serum or plasma albumin/glob ulin mass ratioOrdered By: Jacques East on 02-13-2023 Albumin/Globulin [Mass ratio] 1.6 {ratio} [facility] Activated partial thrombopla stin time (aPTT) in platelet poor plasma by coagulation aOrdered By: Sally Valle on 02-12-2023 aPTT Coag (PPP) [Time] 25.6 s 25.1-36.5 [facility] Comment on above: A hematocrit value g reater than 55% may lead to inaccurate results in coagulation testing. Patients having hematocrit values >55% require a special collection tube for coagulation studies. Please contact the laboratory at [phone] for redraw instructions. Aerobic Cultureon 02-12-2023 Aerobic Culture Light Normal Respira tory Zoe 2 Days Gram Stain Result Rare Epithelial Cells 1+ White Blood Cells Rare Gram Positive Coccobacilli PERFORMED BY: [place] [address] PATHOLOGIST MANAGER ENDOSCOPY JERAMY CALDWELL M.D. Normal [facility] Comment on above: Performed By: #### A HANNAH #### [address] Auth for Release of Medical Recordson 02-12-2023 Auth for Release of Medical Records [id number] Normal [facility] Automated erythrocytes count in urine sediment (number/area)Ordered By: Jacques East on 02-12-2023 RBC Auto (Urine sed) [#/Area] 1-2 [HPF] 0-4 [facility] Automated leukocytes count i n urine sediment (number/area)Ordered By: Jacques East on 02-12-2023 WBC Auto (Urine sed) [#/Area] 3-4 [HPF] 0-4 [facility] Bilirubin Test strip Ql (U)O rdered By: Jacques East on 02-12-2023 Bilirubin Ql (U) Negative Negative [facility] C Urineon 02-12-2023 Bacteria identified Cx Nom (U) Microbiology PROCEDURE: Urine Culture [R1] SOURCE: U CleanCatch BODY SITE: COLLECTED DATE/TIME: 02/10/2023 14:48 EST RECEIVED DATE/TIME: 02/10/2023 17:04 EST START DATE/TIME: 02/10/2023 17:04 EST FREE TEXT SOURCE: Jaxson Johnson PA-C, PA-C, Dean W. FINAL REPORTS Final Report [] Verified Date/Time: [...] Locations R1: This test was performed at: [facility], [address] [place] [address], [id number] , [place], Normal [facility] Comment on above: Performed By: #### [id number] #### [facility] [address] [place] [id number] Coagulation Profileon 2022 aPTT Coag (Bld) [Time] 25.6 s Normal 25.1-36.5 [facility] Comment on above: Result Comment: A he matocrit value greater than 55% may lead to inaccurate results in coagulation testing. Patients having hematocrit values >55% require a special collection tube for coagulation studies. Please contact the laboratory at [phone] for redraw instructions. PERFORMED BY: [facility] [address] [place] [address] PATHOLOGIST MANAGER ENDOSCOPY JERAMY CALDWELL M.D. Performed By: #### C BC, PP, CMP ####[place] [address] [place] [address] [facility] INR Coag (PPP) [Relative time] 0.9 {INR} Normal [facility] Comment on above: Result Comment: INR Therapeutic [...] valves: 3 - 4.5 Performed By: #### C BC, PP, CMP ####[facility] [id number] [place] [address] PT Coag (PPP) [Time] 10.9 s Normal 9.0-12.9 [facility] Comment on above: Result Comment: A he matocrit value greater than 55% may lead to inaccurate results in coagulation testing. Patients having hematocrit values >55% require a special collection tube for coagulation studies. Please contact the laboratory at [phone] for redraw instructions. Performed By: #### C BC, PP, CMP ####[address] Color Auto (U)Ordered By: Glenroy East on 02-12-2023 Color (U) Yellow Yellow [facility] Complete Blood Count Auto Di ffon 02-12-2023 Basophils (Bld) [#/Vol] 0.0 10*3/uL Normal 0.0-0.2 [facility] Comment on above: Result Comment: PERF ORMED BY: [place] [address] PATHOLOGIST MANAGER ENDOSCOPY JERAMY CALDWELL M.D. Performed By: #### C BC, PP, CMP #### [address] Basophils/100 WBC (Bld) 0.2 % Normal . [facility] Comment on above: Performed By: #### C BC, PP, CMP #### [address] Eosinophils (Bld) [#/Vol] 0.0 10*3/uL Normal 0.0-0.45 [facility] Comment on above: Performed By: #### C BC, PP, CMP #### [facility] [address] Eosinophils/100 WBC (Bld) 0.0 % Normal . [facility] Comment on above: Performed By: #### C BC, PP, CMP #### [address] Erythrocyte distribution width (RBC) [Ratio] 14.6 % Normal 11.9-15.3 [facility] Comment on above: Performed By: #### C BC, PP, CMP #### [facility] [address] Hematocrit (Bld) [Volume fraction] 46.1 % Normal 34.0-46.4 [facility] Comment on above: Performed By: #### C BC, PP, CMP #### [address] Hemoglobin (Bld) [Mass/Vol] 15.6 g/dL High 11.8-15.4 [facility] Comment on above: Performed By: #### C BC, PP, CMP #### [address] Lymphocytes (Bld) [#/Vol] 0.6 10*3/uL Low 1.00-4.8 [facility] Comment on above: Performed By: #### C BC, PP, CMP #### [address] Lymphocytes/100 WBC (Bld) 4.0 % Normal . [facility] Comment on above: Performed By: #### C BC, PP, CMP #### [address] MCH (RBC) [Entitic mass] 30.6 pg Normal 24.7-34.3 [facility] Comment on above: Performed By: #### C BC, PP, CMP #### [address] MCV (RBC) [Entitic vol] 90.6 fL Normal 80-100 [facility] Comment on above: Performed By: #### C BC, PP, CMP #### [address] Mean Corpuscular HGB Conc 33.8 g/dL Normal 32.0-35.0 [facility] Comment on above: Performed By: #### C BC, PP, CMP #### [address] Monocytes (Bld) [#/Vol] 0.3 10*3/uL Normal 0.0-0.8 [facility] Comment on above: Performed By: #### C BC, PP, CMP #### [facility] [address] [place] [address] [place] Monocytes/100 WBC (Bld) 1.8 % Normal . [facility] Comment on above: Performed By: #### C BC, PP, CMP #### [facility] [address] [place] [address] [place] Neutrophils (Bld) [#/Vol] 14.1 10*3/uL High 1.8-7.7 [facility] Comment on above: Performed By: #### C BC, PP, CMP #### [facility] [address] Neutrophils/100 WBC (Bld) 94.0 % Normal . [facility] Comment on above: Performed By: #### C BC, PP, CMP #### [facility] [address] NRBC% 0.1 /100{WBC} Normal 0-0.5 [facility] [facility] Comment on above: Performed By: #### C BC, PP, CMP #### [facility] [address] Platelet mean volume (Bld) [Entitic vol] 7.9 fL Normal 6.3-10.7 [facility] Comment on above: Performed By: #### C BC, PP, CMP #### [facility] 1111 [place] [address] [place] Platelets (Bld) [#/Vol] 236 10*3/uL Normal 150-450 [facility] Comment on above: Performed By: #### C BC, PP, CMP #### [facility] 1[address] [place] [address] [place] RBC (Bld) [#/Vol] 5.09 10*6/uL High 3.60-5.00 [facility] Comment on above: Performed By: #### C BC, PP, CMP #### [facility] 1[address] [place] [address] [place] WBC (Bld) [#/Vol] 15.0 10*3/uL High 3.8-11.6 [facility] Comment on above: Performed By: #### C JUANITA PP, CMP #### [address] Comprehensive Metabolic Pane franco 02-12-2023 Albumin [Mass/Vol] 4.6 g/dL Normal 3.5-5.7 [facility] Comment on above: Performed By: #### C JUANITA, PP, CMP #### [address] Albumin/Globulin [Mass ratio] 1.5 {ratio} Normal [facility] Comment on above: Performed By: #### C JUANITA PP, CMP #### [address] ALP [Catalytic activity/Vol] 70 U/L Normal 34-104 [facility] Comment on above: Performed By: #### C JUANITA PP, CMP #### [address] ALT [Catalytic activity/Vol] 19 U/L Normal 7-52 [facility] Comment on above: Performed By: #### C JUANITA PP, CMP #### [address] Anion gap [Moles/Vol] Not performed Normal 6.0-15.0 [facility] Comment on above: Performed By: #### C JUANITA, PP, CMP #### [address] AST [Catalytic activity/Vol] 29 U/L Normal 13-39 [facility] Comment on above: Performed By: #### C JUANITA PP, CMP #### [address] Bilirubin [Mass/Vol] 0.5 mg/dL Normal 0.3-1.0 [facility] Comment on above: Performed By: #### C BC, PP, CMP #### [address] Calcium [Mass/Vol] 9.9 mg/dL Normal 8.6-10.3 [facility] Comment on above: Performed By: #### C BC, PP, CMP #### [facility] [address] Chloride [Moles/Vol] 106 mmol/L Normal 98-107 [facility] Comment on above: Performed By: #### C BC, PP, CMP #### [facility] [address] CO2 [Moles/Vol] 20.4 mmol/L Low 21.0-31.0 [facility] Comment on above: Performed By: #### C JUANITA, PP, CMP #### [facility] [address] Creatinine [Mass/Vol] 1.65 mg/dL High 0.60-1.20 [facility] Comment on above: Performed By: #### C BC, PP, CMP #### [address] Creatinine Clr Calc Pharmacy 34.03 [facility] Comment on above: Result Comment: PERF ORMED BY: [place] [address] PATHOLOGIST MANAGER ENDOSCOPY JERAMY CALDWELL M.D. Performed By: #### C BC, PP, CMP #### [address] GFR/1.73 sq M.predicted MDRD (S/P/Bld) [Vol rate/Area] 35.363 mL/min/{1.73_m2} [facility] Comment on above: Performed By: #### C BC, PP, CMP #### [facility] [address] Globulin (S) [Mass/Vol] 3.1 g/dL [facility] Comment on above: Performed By: #### C BC, PP, CMP #### [facility] [address] Glucose [Mass/Vol] 157 mg/dL High 70-100 [facility] Comment on above: Result Comment: [place] Glucose Reference Range is dependent on time and content of last meal. Glucose of more than 200 mg/dL in a nonstressed, ambulatory subject supports the diagnosis of Diabetes Mellitus. ADA recommended reference range Performed By: #### C BC, PP, CMP #### [facility] 1111 [place] [address] [facility] Potassium Normal 3.5-5.1 [facility] Comment on above: Result Comment: Spec imen hemolyzed, redraw requested Performed By: #### C BC, PP, CMP #### [facility] 1[address] [place] [address] [place] Protein [Mass/Vol] 7.7 g/dL Normal 6.4-8.9 [facility] Comment on above: Performed By: #### C BC, PP, CMP #### [facility] [address] [place] [address] [place] Sodium [Moles/Vol] 140 mmol/L Normal 136-145 [facility] Comment on above: Performed By: #### C BC, PP, CMP #### [facility] [address] [place] [id number] [place] Urea nitrogen [Mass/Vol] 32 mg/dL High 7-25 [facility] Comment on above: Performed By: #### C BC, PP, CMP #### [facility] [address] [place] [address] [place] Dipstick and Microscopicon 1 04-15-2022 Appearance (U) Clear Normal Clear [facility] Comment on above: Order Comment: Name Collection Type:: Clean-Voided Midstream Performed By: #### A DDONUAPLUS #### [facility] [address] [place] [id number] [place] Bacteria,Urine None Seen Normal None Seen [facility] Comment on above: Order Comment: Name Collection Type:: Clean-Voided Midstream Performed By: #### A DDONUAPLUS #### [facility] [address] [place] [id number] [place] Bilirubin,Urine Negative Normal Negative [facility] Comment on above: Order Comment: Name Collection Type:: Clean-Voided Midstream Performed By: #### A DDONUAPLUS #### [facility] 1[address] [place] [address] [place] Color (U) Yellow Normal Yellow [facility] Comment on above: Order Comment: Name Collection Type:: Clean-Voided Midstream Performed By: #### A DDONUAPLUS #### [facility] [address] [place] [address] [place] Glucose Ql (U) Normal Normal Normal [facility] Comment on above: Order Comment: Name Collection Type:: Clean-Voided Midstream Performed By: #### A DDONUAPLUS #### [place] [address] [place] Hyaline Casts,Urine 0-8 Normal 0-8 [facility] Comment on above: Order Comment: Name Collection Type:: Clean-Voided Midstream Result Comment: PERF ORMED BY: [place] [address] PATHOLOGIST MANAGER ENDOSCOPY JERAMY CALDWELL M.D. Performed By: #### A DDONUAPLUS #### [facility] [address] [place] [address] [place] Ketones Ql (U) Negative Normal Negative [facility] Comment on above: Order Comment: Name Collection Type:: Clean-Voided Midstream Performed By: #### A DDONUAPLUS #### [facility] [address] [place] [address] [place] Leukocyte esterase Test strip Ql (U) 1+ High Negative [facility] Comment on above: Order Comment: Name Collection Type:: Clean-Voided Midstream Performed By: #### A DDONUAPLUS #### [facility] [address] [place] [address] [place] Nitrite,Urine Negative Normal Negative [facility] Comment on above: Order Comment: Name Collection Type:: Clean-Voided Midstream Performed By: #### A DDONUAPLUS #### [facility] [address] [place] [address] [place] Occult Blood,Urine Negative Normal Negative [facility] Comment on above: Order Comment: Name Collection Type:: Clean-Voided Midstream Result Comment: PERF ORMED BY: [place] [address] PATHOLOGIST MANAGER ENDOSCOPY JERAMY CALDWELL M.D. Performed By: #### A DDONUAPLUS #### [address] pH (U) 5.0 [pH] Normal 5.0-9.0 [facility] Comment on above: Order Comment: Name Collection Type:: Clean-Voided Midstream Performed By: #### A DDONUAPLUS #### [address] Protein,Urine Negative Normal Negative [facility] Comment on above: Order Comment: Name Collection Type:: Clean-Voided Midstream Performed By: #### A DDONUAPLUS #### [address] RBC,Urine 1-2 Normal 0-4 [facility] Comment on above: Order Comment: Name Collection Type:: Clean-Voided Midstream Performed By: #### A DDONUAPLUS #### [address] Specificy [place],Urine 1.017 Normal 1.001-1.03 0 [facility] Comment on above: Order Comment: Name Collection Type:: Clean-Voided Midstream Performed By: #### A DDONUAPLUS #### [place] [address] [place] Squamous Epithelial Cell,Urine 0-1 Normal 0-2 [facility] Comment on above: Order Comment: Name Collection Type:: Clean-Voided Midstream Performed By: #### A DDONUAPLUS #### [place] [address] [place] Urobilinogen,Urine Normal Normal Normal [facility] Comment on above: Order Comment: Name Collection Type:: Clean-Voided Midstream Performed By: #### A DDONUAPLUS #### [place] [address] [place] WBC,Urine 3-4 Normal 0-4 [facility] Comment on above: Order Comment: Name Collection Type:: Clean-Voided Midstream Performed By: #### A DDONUAPLUS #### [place] [id number] [facility] ECG 12 lead ECGon 02-12-2023 ECG 12 lead ECG [facility] [place] [address] [place] [address] Electrocardiograph Report Signed Patient: Deysi Hernandez MR#: [id number] : 1960 Acct:[id number] Age/Sex: 62 / F ADM Date: 02/12/23 Loc: Room: [address] [place] [address] Type: ADM IN Attending Dr: Jacques East [...] Signed By Bj Bay DO 02/13 1109 [facility] Gram Stainon 02-12-2023 Microscopic observation Gram stain Nom (Unsp spec) Gram Stain Result Rare Epithelial Cells 1+ White Blood Cells Rare Gram Positive Coccobacilli PERFORMED BY: [place] [address] PATHOLOGIST MANAGER ENDOSCOPY JERAMY CALDWELL M.D. [facility] Comment on above: Performed By: #### A AUGUSTUS YOUNG #### [facility] [address] Gram stain for investigation of transfusion reactionOrdered By: Jacques East on 02-12-2023 Microscopic observation Gram stain Nom (Unsp spec) [facility] Microscopic observation Gram stain Nom (Unsp spec) 2 Days [facility] INR in Platelet poor plasma by Coagulation assayOrdered By: Sally Valle on 02-12-2023 INR Coag (PPP) [Relative time] 0.9 {INR} [facility] Comment on above: INR Therapeutic Rang e [...] on 02-12-2023 Ketones (U) [Mass/Vol] Negative Negative [facility] - UrinalysisOrder ed By: Jacques East on 02-12-2023 Hyaline casts LM Ql (Urine sed) 0-8 [LPF] 0-8 [facility] Magnesiumon 02-12-2023 Magnesium [Mass/Vol] 1.8 mg/dL Low 1.9-2.7 [facility] Comment on above: Result Comment: PERF ORMED BY: [facility] 1111 [place] [address] PATHOLOGIST MANAGER ENDOSCOPY JERAMY CALDWELL M.D. Performed By: #### M G ####[facility] [address]uc[address] Nitrite Test strip Ql (U)Ord ered By: Jacques East on 02-12-2023 Nitrite Ql (U) Negative Negative [facility] Protein Auto test strip (U) [Mass/Vol]Ordered By: Jacques East on 02-12-2023 Protein (U) [Mass/Vol] Negative Negative [facility] Prothrombin time (PT)Ordered By: Sally Valle on 02-12-2023 PT Coag (PPP) [Time] 10.9 s 9.0-12.9 [facility] Comment on above: A hematocrit value g reater than 55% may lead to inaccurate results in coagulation testing. Patients having hematocrit values >55% require a special collection tube for coagulation studies. Please contact the laboratory at [phone] for redraw instructions. Redraw Potassiumon 3 Potassium [Moles/Vol] 4.4 mmol/L Normal 3.5-5.1 [facility] Comment on above: Order Comment: 1ST S pecimen hemolyzed, redraw requested Result Comment: PERF ORMED BY: [facility] [address] [place] [id number] PATHOLOGIST MANAGER ENDOSCOPY JERAMY CALDWELL M.D. Performed By: #### R EDW K ####[place] [id number] [facility] Specific gravity Auto test s trip (U) [Rel density]Ordered By: Jacques East on 02-12-2023 Specific gravity (U) [Rel density] 1.017 1.001-1.03 0 [facility] Squamous epithelial cells de tection in urine sediment by light microscopyOrdered By: Jacques East on 02-12-2023 Epithelial cells.squamous LM Ql (Urine sed) 0-1 [HPF] 0-2 [facility] Troponin I High Sensitivityo n 02-12-2023 Troponin I High Sensitivity 43.8 pg/mL High 0.0-15.0 [facility] Comment on above: Result Comment: PERF ORMED BY: [facility] [address] [place] [id number] PATHOLOGIST MANAGER ENDOSCOPY JERAMY CALDWELL M.D. Performed By: #### H S TROP ####[address] [address] [facility] Troponin I High Sensitivity 70.6 pg/mL Off scale high 0.0-15.0 [facility] Comment on above: Result Comment: Crit ical Result : Called to and read back by: BRANDON LEVINE at: 02/12/2023 08:07:31 by:LUCIANO PERFORMED BY: [place] [address] PATHOLOGIST MANAGER ENDOSCOPY JERAMY CALDWELL M.D. Performed By: #### H S TROP ####[facility] Cjd[address] Troponin I.cardiac [Mass/vol ume] in Serum or Plasma by Detection limit <= 0.01 ng/Ordered By: Sally Valle on 02-12-2023 Troponin I.cardiac DL <= 0.01 ng/mL [Mass/Vol] 43.8 pg/mL 0.0-15.0 [facility] Urine bacteria detection by automated methodOrdered By: Jacques East on 02-12-2023 Bacteria Auto Ql (U) None seen None Seen [facility] Urine clarity by refractomet ry automatedOrdered By: Jacques East on 02-12-2023 Clarity Refractometry automated (U) Clear Clear [facility] Urine glucose measurement by automated test strip (mass/volume)Ordered By: Jacques East on 02-12-2023 Glucose Auto test strip (U) [Mass/Vol] Normal mg/dL Normal [facility] Urine hemoglobin detection b y automated test stripOrdered By: Jacques East on 02-12-2023 Hemoglobin Auto test strip Ql (U) Negative Negative [facility] Urine leukocyte esterase det ection by automated test stripOrdered By: Jacques East on 02-12-2023 Leukocyte esterase Auto test strip Ql (U) 1+ Negative [facility] Urobilinogen Auto test strip (U) [Mass/Vol]Ordered By: Jacques East on 02-12-2023 Urobilinogen (U) [Mass/Vol] Normal mg/dL Normal [facility] XR chest 1V portableon 02-12 XR chest 1V portable [facility] [place] [address] [place], [place] [id number] XRay Report Signed Patient: Deysi Hernandez MR#: [id number] : 1960 Acct:[id number] Age/Sex: 62 / F ADM Date: 02/12/23 Loc: Room: [address] [place] [address] Type: ADM IN Attending Dr: Jacques East [...] Bj Ma M.D.02/12/2023 12:40 PM Dictation Location: [place] [address] Transcribed By: [facility] 02/12/23 1240 Dictated By: Bj Ma DO 02/12/23 1237 Signed By: 02/12/23 1240 [facility] pH Auto test strip (U)Ordere d By: Jacques East on 02-12-2023 pH (U) 5.0 [pH] 5.0-9.0 [facility] Ambulatory Visit Summaryon 1 04-13-2022 Ambulatory Visit Summary DEYSI HERNANDEZ :1960 Visit Date:02/10/2023 Ambulatory Visit Instructions Your Diagnosis Dysuria Tests Performed Urnls Dip Stick Auto w/o Microscopy POC 39334 Your Care Team Attending Physician - Alex BRIDGES, Jaxson W. Primary Care Physician - DONNA FINNEY, [facility] This Is Your Medications List Misc Prescription [...] Urnls Dip Stick Auto w/o Microscopy POC 19738 (02/10/2023) Bilirubin Urine Dipstick - Negative Blood Urine Dipstick - 2+ Moderate Glucose Urine Dipstick - Negative Ketones Urine Dipstick - Negative Leukocytes Urine Dipstick - 1+ Small Nitrite Urine Dipstick - Positive Protein Urine Dipstick - Negative Specific [place] Urine Dipstick - 1.015 Urine Appearance Urine [...] for choosing us for your care. Normal [facility] Auto Diffon 02-10-2023 Basophils/100 WBC (Bld) 1.3 % Normal 0.0-2.0 [facility] Comment on above: Order Comment: Order Added by Discern Expert. Performed By: #### 2 425003, 26504650, 18628754, 7056310, 2613757, 96786224, 74049413 ####[place] [address] [place] [address] Basophils/Leukocytes Auto (Bld) [Pure # fraction] 0.1 E9/L Normal 0.0-0.2 [facility] Comment on above: Order Comment: Order Added by Discern Expert. Performed By: #### 2 047372, 18831026, 58877931, 0615067, 9526033, 32050879, 24916303 ####[place] [address] [place] [address] Eosinophils/100 WBC (Bld) 1.5 % Normal 0.0-8.0 [facility] Comment on above: Order Comment: Order Added by Discern Expert. Performed By: #### 2 074672, 98639016, 58991588, 4869769, 4685390, 02554893, 73946832 ####[address] [address] Eosinophils/Leukocytes Auto (Bld) [Pure # fraction] 0.1 E9/L Normal 0.0-0.5 [facility] Comment on above: Order Comment: Order Added by Discern Expert. Performed By: #### 2 802086, 57899064, 66981331, 1438264, 1745296, 99826247, 50501250 ####[address] [address] Lymphocytes/100 WBC (Bld) 16.8 % Normal 14.0-50.0 [facility] Comment on above: Order Comment: Order Added by Discern Expert. Performed By: #### 2 925349, 15053342, 02316488, 1029565, 2183628, 57043743, 93110987 ####[place] [address] [place] [address] Lymphocytes/Leukocytes Auto (Bld) [Pure # fraction] 1.6 E9/L Normal 1.0-4.0 [facility] Comment on above: Order Comment: Order Added by Discern Expert. Performed By: #### 2 209179, 84151457, 49976962, 0183838, 5993602, 12835194, 65191660 ####[facility] [address] [place] [address] Monocytes/100 WBC (Bld) 9.8 % Normal 4.0-14.0 [facility] Comment on above: Order Comment: Order Added by Discern Expert. Performed By: #### 2 251328, 17653378, 84664714, 3828449, 3908413, 60098462, 36179388 ####[place] [address] [place] [address] Monocytes/Leukocytes Auto (Bld) [Pure # fraction] 0.9 E9/L Normal 0.2-1.0 [facility] Comment on above: Order Comment: Order Added by Edmund Expert. Performed By: #### 2 485958, 45985941, 69188613, 9796804, 9157543, 70907784, 72792995 ####[place] [address] [place] [address] Neutrophils/100 WBC (Bld) 70.6 % Normal 36.0-75.0 [facility] Comment on above: Order Comment: Order Added by Edmund Expert. Performed By: #### 2 344193, 78198324, 48554760, 4974931, 7368806, 40619122, 11478420 ####[place] [address] [place] [address] Neutrophils/Leukocytes Auto (Bld) [Pure # fraction] 6.7 E9/L Normal 2.0-7.5 [facility] Comment on above: Order Comment: Order Added by Edmund Expert. Performed By: #### 2 660494, 48688625, 36471757, 4357677, 3078160, 13043108, 23962353 ####[place] [address] [place] [address] BMPon 12-24-2023 Anion gap [Moles/Vol] 14 mmol/L Normal 6-16 [facility] Comment on above: Performed By: #### 2 102876, 69063933, 55937439, 0197851, 7969401, 81312367, 13745368 ####[facility] [address] [place] [address] BUN/Creat Ratio 12 No Units Normal 10-20 [facility] Comment on above: Performed By: #### 2 038879, 88106333, 32927986, 4295953, 5487225, 50881942, 72517426 ####[facility] [address] [place] [address] Calcium [Mass/Vol] 9.7 mg/dL Normal 8.9-11.1 [facility] Comment on above: Performed By: #### 2 705164, 68066931, 05807010, 5120848, 6513318, 60359377, 69740417 ####[facility] [address] [place] [address] Chloride [Moles/Vol] 107 mmol/L Normal 101-111 [facility] Comment on above: Performed By: #### 2 012019, 72739676, 04059171, 0251659, 3466536, 46327066, 35724521 ####[facility] [address] [place] [address] CO2 [Moles/Vol] 25 mmol/L Normal 21-[address] [facility] Comment on above: Performed By: #### 2 732021, 21856948, 68117066, 5162947, 6096386, 23520437, 62890415 ####[facility] [address] [place] [address] Creatinine [Mass/Vol] 1.4 mg/dL High 0.5-1.3 [facility] Comment on above: Performed By: #### 2 678053, 41196981, 06520403, 1356297, 9572171, 80893611, 96873576 ####[facility] [address] [place] [address] Glucose [Mass/Vol] 84 mg/dL Normal 55-199 [facility] Comment on above: Performed By: #### 2 404241, 49186985, 37899991, 5521274, 2712996, 48038021, 66326064 ####[facility] [address] [place] [address] Potassium [Moles/Vol] 4.8 mmol/L Normal 3.5-5.3 [facility] Comment on above: Performed By: #### 2 017597, 35201897, 20313077, 1391106, 5831889, 51366456, 45894159 ####[facility] [address] [place] [address] Sodium [Moles/Vol] 141 mmol/L Normal 135-145 [facility] Comment on above: Performed By: #### 2 374015, 43047590, 61886325, 1779668, 3097930, 43163683, 56461167 ####[facility] [address] [place] [address] Urea nitrogen [Mass/Vol] 17 mg/dL Normal 5-21 [facility] Comment on above: Performed By: #### 2 711211, 45199600, 00490140, 4991126, 2572141, 84804707, 90630277 ####[facility] [address] [place] [address] BNPon 02-10-2023 Natriuretic peptide B (Bld) [Mass/Vol] 39 pg/mL Normal 5-80 [facility] Comment on above: Performed By: #### 2 116799, 68899364, 42024458, 1967778, 9885641, 67636798, 80775265 ####[facility] [address] [place] [address] CBC w/ Auto Diffon Erythrocyte distribution width (RBC) [Ratio] 14.4 % High 10.9-14.2 [facility] Comment on above: Performed By: #### 2 713276, 17436783, 77384811, 9050405, 5986876, 91075426, 89624585 ####[facility] [address] [place] [address] Hematocrit (Bld) [Volume fraction] 50.0 % High 34.0-46.0 [facility] Comment on above: Performed By: #### 2 183653, 92886180, 87292515, 0149363, 7956379, 37372992, 85227096 ####[facility] [address] [place] [address] Hemoglobin (Bld) [Mass/Vol] 16.8 g/dL High 12.0-16.0 [facility] Comment on above: Performed By: #### 2 362495, 27359366, 06693904, 4058414, 1027099, 08517639, 76028765 ####[facility] [address] [place] [address] MCH (RBC) [Entitic mass] 30.1 pg Normal 27.0-34.0 [facility] Comment on above: Performed By: #### 2 481673, 46206360, 89745698, 1385080, 3588234, 80331579, 28477074 ####[facility] [address] [place] [address] MCHC (RBC) [Mass/Vol] 33.7 g/dL Normal 31.4-36.0 [facility] Comment on above: Performed By: #### 2 850238, 60671596, 63319938, 3465340, 6434166, 39074711, 48794601 ####[address] [address] MCV (RBC) [Entitic vol] 89.4 fL Normal 80.0-100.0 [facility] Comment on above: Performed By: #### 2 447154, 74703327, 55478460, 8318783, 8664122, 71678472, 68982689 ####[facility] [address] [place] [address] Platelet mean volume (Bld) [Entitic vol] 8.0 fL Normal 6.4-10.8 [facility] Comment on above: Performed By: #### 2 075900, 03498581, 89080606, 2777195, 9270705, 81527562, 07347139 ####[facility] [address] [place] [address] Platelets (Bld) [#/Vol] 202.0 E9/L Normal 150.0-500. 0 [facility] Comment on above: Performed By: #### 2 448165, 47973144, 40664968, 6535209, 2335755, 48683412, 73735022 ####[place] [address] [place] [address] RBC (Bld) [#/Vol] 5.6 E12/L Normal 4.3-5.9 [facility] Comment on above: Performed By: #### 2 013159, 40014411, 05628472, 1387555, 0963457, 49479844, 59041713 ####[facility] [address] [place] [address] WBC corrected for nucl RBC Auto (Bld) [#/Vol] 9.4 E9/L Normal 4.0-11.[address] [facility] Comment on above: Performed By: #### 2 040936, 14590043, 20205682, 8035395, 8009131, 60429324, 27687018 ####[facility] [address] [place] [address] CHEMISTRYOrdered By: SYSTEM SYSTEM on 02-10-2023 Anion [...] 10 - 20 [facility] CHEMISTRYOrdered By: Estela Reyna on 02-10-2023 Natriuretic peptide B (Bld) [Mass/Vol] 39 pg/mL Normal 5 - 80 pg/mL [facility] COAGULATIONOrdered By: Veronica Guidry on 02-10-2023 aPTT Coag (PPP) [Time] 29.2 s Normal 25.1 - 36.5 second(s) [facility] Comment on above: Interpretive Data: [...] the same coagulation reagent and instrumentation as [facility]. Currently there are no coagulation studies available worldwide for children to 14 days, and no normal ranges. Heparin therapeutic range (represented by Anti-Factor Xa activity of 0.2 - 0.4 U/mL) corresponds to PTT of 56.6 - 109.0 sec. INR Coag (PPP) [Relative time] 1.0 {INR} Invalid Interpretation Code [facility] Comment on above: Interpretive Data: I NR results are specifically intended to assess patients stabilized on long-term Anticoagulation therapy suggested INR s Less Intensive Anticoagulation 2.0 3.0 Conventional Range 3.0 4.5 PT Coag (PPP) [Time] 11.6 s Normal 9.4 - 1 2.5 second(s) [facility] Comment on above: Interpretive Data: [...] the same coagulation reagent and instrumentation as [facility]. Currently there are no coagulation studies available worldwide for children to 14 days, and no normal ranges. Consent for Treatmenton 01-19 Consent for Treatment [id number] Normal [facility] Discharge Instructionson Discharge Instructions [id number] F Normal [facility] ED Clinical Summaryon 2022 ED Clinical Summary (Inserted Image. Neelam ble to display) [place] [id number] ED Clinical Summary Person Information Name: DEYSI HERNANDEZ Trav/[facility] Age: 62 Years : 1960 Sex: Female Language: [place] PCP: SHAIKH THOMPSON MD Marital Status: Visit [...] 17:12:09 02/10/2023 17:12:09 02/10/2023 17:12:09 ADDRESS: [address] [id number] PHYS DOC NOTES: MEDICAL INFORMATION: Prescriptions Given: New Medications [id number], [address], [place] [id number], [phone] cefdinir (cefdinir 300 mg Cap) 1 Capsules [...] Tablets By Mouth every day. Misc Prescription ([facility] ASPIRIN EC 81 MG TABLET) 0. omeprazole (omeprazole 40 mg Cap-DR) 1 Capsules By Mouth every day. Refills: 2. PATIENT EDUCATION INFORMATION: Instructions: Urinary Tract Infection, Adult, Jdxs-dx-Qvio; Acute Bronchitis, Adult Follow up: With: Address: When: SHAIKH DONNA [address], [place] [phone] Business (1) In 3 days 02/13/2023 Comments: Follow-up with your primary care provider in 3 to 5 days. If symptoms worsen, do not improve, or new symptoms arise please report back to emergency department for further evaluation. DIAGNOSIS: Bronchitis; UTI (urinary tract infection) Normal [facility] ED Note-Nursingon 02-10-2023 ED Note-Nursing EKG late due to vanessa ent being in the bathroom when called. Normal [facility] ED Note-Physicianon 02-11-20 ED Note-Physician Basic Information [...] (N39.0: Urin (more content not included)... Normal [facility] Comment on above: Result Comment: Elec tronically Signed By: Raymundo BRIDGES, Keon Francis\.br\Date and Time Signed: 02/10/23 16:31 EST\.br\Electronically Co-Signed By: Gabby De Oliveira M.D..br\Date and Time Co-Signed: 02/10/23 17:38 EST ED [...] these instructions at home: Medicines ? Take zaya-yal-bizsbrs and prescription medicines only as told by [...] provider. Document Revised: 09/16/2020 Document Reviewed: 09/16/2020 [employer] Patient Education ? 2022 Cell[employer]. Pulmonary Medicine Acute Bronchitis, Adult Acute bronchitis [...] The f (more content not included)... Normal [facility] ED Patient Summaryon 023 ED Patient Summary (Inserted Image. Neelam ble to display) [place] [id number] Patient Discharge Instructions Person Information Name: DEYSI HERNANDEZ Age: 62 Years Arrival Date: 02/10/2023 14:37:39 Discharge Diagnosis: Bronchitis; UTI (urinary tract infection) Primary Care Physician: SHAIKH THOPMSON MD Provider Information Primary Provider: Gabby De Oliveira M.D. Advanced Barrel Endshake Adjuster:None The exam and treatment you received in the Emergency Department were for an urgent problem and are not intended as complete care. It is important that you follow up with a doctor, nurse practitioner, or physician?s recruitment and outreach assistant for ongoing care. If your symptoms [...] With: Address: When: SHAIKH DONNA [address], [place] [id number] Business (1) In 3 days 02/13/2023 Comments: [...] Patient Education Materials: Urinary Tract Infection, Adult, Uqzc-gq-Nlch; Acute Bronchitis, Adult A MESSAGE TO ALL PATIENTS REGARDING OPIOIDS PRESCRIPTION OPIOIDS: WHAT YOU NEED TO KNOW Prescription opioids can be used to help relieve qhjobhgr-nx-nyingf pain and are often prescribed following a [...] and Drug Administration (www.fda.gov/Drugs/Resour cesForYou). ? Visit www.cdc.gov/dr (more content not included)... Normal [facility] Family Medicine Office/Clini c Noteon 02-10-2023 Family Medicine Office/Clinic Note Chief Complaint [...] send her to the emergency department at [facility]. She was offered EMS transfer but she [...] hurt by (more content not included)... Normal [facility] Comment on above: Result Comment: Elec tronically [...] 30.1 pg Normal 27.0 - 34.0 pg [facility] HemeAutoSS MCHC (RBC) [Mass/Vol] 33.7 g/dL Normal 31.4 - 36.0 gm/dL [facility] HemeAutoSS MCV (RBC) [Entitic vol] 89.4 fL Normal 80.0 - 100.0 fL [facility] HemeAutoSS Platelet mean volume (Bld) [Entitic vol] 8.0 fL Normal 6.4 - 10.8 fL [facility] HemeAutoSS Platelets (Bld) [#/Vol] 202.0 E9/L Normal 150.0 - 500.0 E9/L [facility] HemeAutoSS RBC (Bld) [#/Vol] 5.6 E12/L Normal 4.3 - 5.9 E12/L [facility] HemeAutoSS WBC corrected for nucl RBC Auto (Bld) [#/Vol] 9.4 E9/L Normal 4.0 - 11.0 E9/L [facility] HemeAutoSS Influenza A&B Agon 3 Influenzae A Ag Negative Normal Negative [facility] Comment on above: Performed By: #### 1 [id number], [id number] #### [facility] [address] [place] [address] Influenzae B Ag Negative Normal Negative [facility] Comment on above: Result Comment: Test sensitivity and specificity vary for age group, specimen type, antigen types, and prevalence of disease. Test results must be evaluated in conjunction with other clinical data available to the physician. Individuals who received nasally administered Influenza A vaccine may have positive test results up to 3 days after vaccination. Performed By: #### 1 [id number], [id number] #### [facility] [address] [place] [address] MICRO OTHER TESTSOrdered By: Trudy Guidry on 02-10-2023 Influenzae A Ag Negative (02/10/23 3:25 PM) Normal Negative [facility] Influenzae B Ag Negative 1 (02/10/23 3:25 PM) Normal Negative [facility] Comment on above: Interpretive Data: T [...] NEG Ctl Pass (02/10/23 3:25 PM) Normal [facility] Rapid COV Int POS Ctl Pass (02/10/23 3:25 PM) Normal [facility] SARS-CoV+SARS-CoV-2 (COVID-19) Ag IA.rapid Ql (Resp) Not Detected 6 (02/10/23 3:25 PM) Normal Not Detected [facility] Comment on above: Interpretive Data: T he Real Time Genomics Veritor System for Rapid Detection of SARS-CoV-2 [...] Coag (PPP) [Time] 29.2 second(s) Normal 25.1-36.5 [facility] Comment on above: Result Comment: Para meter [...] the same coagulation reagent and instrumentation as [facility]. Currently there are no coagulation studies available worldwide for children to 14 days, and no normal ranges. Heparin therapeutic range (represented by Anti-Factor Xa activity of 0.2 - 0.4 U/mL) corresponds to PTT of 56.6 - 109.0 sec. Performed By: #### 2 [id number], [id number], [id number], 9525365, 2383216, [id number], [id number] ####[facility] [address] [place] [address] INR Coag (PPP) [Relative time] 1.0 {INR} Invalid Interpretation Code [facility] Comment on above: Result Comment: INR results are specifically intended to assess patients stabilized on long-term Anticoagulation therapy suggested INR?s ?Less Intensive Anticoagulation? 2.0 ? 3.0 Conventional Range 3.0 ? 4.5 Performed By: #### 2 [id number], [id number], [id number], 1666852, 8115025, [id number], [id number] ####[facility] [address] [place] [address] PT Coag (PPP) [Time] 11.6 second(s) Normal 9.4-12.5 [facility] Comment on above: Result Comment: 15 d [...] the same coagulation reagent and instrumentation as [facility]. Currently there are no coagulation studies available worldwide for children to 14 days, and no normal ranges. Performed By: #### 2 [id number], [id number], [id number], 4784552, 6869086, [id number], [id number] ####[facility] [address] [place] [address] Rapid COVID Antigen ([facility])on 02-10-2023 Rapid COV Int NEG Ctl Pass Normal [facility] Comment on above: Performed By: #### 1 [id number], [id number] #### [facility] [address] [place] [address] Rapid COV Int POS Ctl Pass Normal [facility] Comment on above: Performed By: #### 1 [id number], [id number] #### [facility] [address] [place] [address] SARS-CoV+SARS-CoV-2 (COVID-19) Ag IA.rapid Ql (Resp) Not detected Normal Not Detected [facility] Comment on above: Result Comment: The ChemiSense System for Rapid Detection of SARS-CoV-2 is [...] For in vitro diagnostic use. In the [facility], only for use under an Emergency Use [...] or revoked sooner. Performed By: #### 1 [id number], [id number] #### [facility] [address] [place] [address] Troponin 0 Hr.on 02-10-2023 Troponin 5.80 pg/mL Low 10.10-27.1 0 [facility] Comment on above: Result Comment: The 95% CI (Confidence Interval) PPV (Positive Predictive Value) for myocardial infarction in females is 38 pg/mL, in males 51 pg/mL. The results should be used in conjunction with clinical conditions of myocardial infarction. (Access High Sensitivity Troponin I Instructions For Use, [employer], September 2017) Performed By: #### 2 [id number], [id number], [id number], 7509039, 1128568, 23046249, [id number] ####[facility] [address] [place] [address] XR Chest Single Viewon 02-10 XR Chest [...] mGy = na DAP = na Normal [facility] eGFRon 02-10-2023 eGFR 43 mL/min/1.73 m2 Low >=59 [facility] Comment on above: Order Comment: Order added by Discern Expert. Performed By: #### 2 [id number], [id number], 34443500, 5493184, 8267153, 86201129, [id number] ####[facility] [address] [place] [address] [facility] 10-26-2022 CNPN Telephone (AARON) ----- DEYSI HERNANDEZ ([id number]) 1960 F Date Time Provider Department 10/26/22 [...] question. I will also send her a [employer] message encouraging communicate via [employer] if needed. Debra Fishman MD Staff, Department of Kidney Medicine 10/26/22 5:49 PM Allergies As of Date: 10/26/2022 Noted Allergy Reaction CODEINE 09/07/2014 7 - Swelling Date Reviewed: 10/09/2022 Reviewed by: Rosie Harris DO - Fully Assessed Reason for Visit: Patient Question [4797] Prescriptions as of 10/26/2022 - lisinopril (ZESTRIL) [...] Encounter Status:Closed by DEBRA FISHMAN on 10/26/22 [facility] 10-25-2022 CNPN Telephone (AARON) ----- DEYSI HERNANDEZ ([id number]) 1960 F Date Time Provider Department 10/25/22 DEBRA FISHMAN During your visit today, we recorded the following information about you: Linn Solis Ma 10/25/2022 12:36 PM Signed Patient called the office very upset because today at here appointment with Kidney Medicine she was seen by another provider and it wasn't her kidney doctor. She would like Dr. Fishman call her back at [phone] because she has lots of questions that [...] Fully Assessed Reason for Visit: Patient Question [8209] Prescriptions as of 10/25/2022 - lisinopril (ZESTRIL) [...] Status:Closed by LINN SOLIS MA on 10/25/22 [facility] Urineon 10-18-2022 Bacteria identified Cx Nom (U) [...] Locations R1: This test was performed at: [facility], [address] [place] [address], [id number] , , [facility] Comment on above: Performed By: #### 2 [id number] ####[place] [address] [place] [address] Family Medicine Office/Clini c Noteon 10-15-2022 Family [...] with voice recognition software. Occasional wrong-word or ?vsvty-w-ubtj? substitutions may have occurred due to the inherent limitations of voice recognition software. 62-year-old female with history of stage III chronic kidney disease, hyperlipidemia, hypertension, current smoker presents today to [facility] care with chief complaint of possible urinary tract infection. She does note that she has been seen urology in the past in regards to stress incontinence. She also notes that she sees nephrology out of [facility]. Patient states she sees them every 6 months for history of her chronic kidney disease in which she states that her right kidney does a lot of work in her left kidney does not function. Patient states a history of urosepsis several years ago and she does not really recall 5 of her days of hospitalization or transfer from to [facility]. Patient states that on of last week [...] day(s), # 21 cap(s), Refills(s) 0, Pharmacy: [id number], 163, cm, 10/15/22 17:40:00 EDT, [...] day(s), # 21 cap(s), Refills(s) 0, [id number], 163, cm, 10/15/22 17:40:00 EDT, Height/Length Dosing, 72.3, kg, 10/15/22 17:40:00 EDT, Weight Dosing 3. Smoker (F17.200: Nicotine dependence, unspecified (more content not included)... Normal [facility] Comment on above: Result Comment: Elec tronically Signed By: Ham BRIDGES, Damion Ellis\.br\Date and Time Signed: 10/15/22 18:07 [...] numbers. This can be done either in [place] ([place] or metric measurements. Note that charts and online BMI calculators are available to help you find your BMI quickly and easily without having to do these calculations yourself. To calculate your BMI in [place] ([place] measurements: 1. Measure your weight in [...] for Disease Control and Prevention: www.cdc.gov ? [place] Heart Association: www.heart.org ? National Heart, Lung, and Blood [place]: www.nhlbi.nih.gov Summary ? Body mass index (BMI) is a number that is calculated from a person's weight and height. ? BMI may help estimate how much of a person's weight is composed of fat. BMI can help identify those who may be at higher risk for certain medical problems. ? BMI can be measured using [place] measurements or metric measurements. ? BMI charts are used to identify whether you are underweight, normal weight, overweight, or obese. This information is not intended to replace advice given to you by your health care provider. Make sure you discuss any questions you have with your health care provider. Document Revised: 10/28/2019 Document Reviewed: 09/04/2019 [employer] Patient Education ? 2022 Cell[employer]us. Obstetrics and Gynecology Urinary Tract Infection, Adult [...] condition if: (more content not included)... Normal [facility] DEYSI HERNANDEZ ([id number]) 1960 F Date Time Provider Department 10/11/22 CATHIE MOORE WIGuillermo During your visit today, we recorded the following information about you: Cathie MooreFormerly [facility] 10/11/2022 12:57 PM Signed Smoking Cessation Navigation Outcome of contact: Left Message Comments: A voicemail has been left for this patient regarding Tobacco Cessation support options. If this patient has any further questions they can email us at or call us at [phone]. [employer] Mucking Machine Operator/Smoking Cessation Navigator: Cathie Rich [facility] Allergies As of Date: 10/11/2022 Noted Allergy [...] Encounter Status:Closed by CATHIE MOORE on 10/11/22 [facility] MAXWELLOVon 10-09-2022 CNOV Office Visit (ELPIDIO ) ----- DEYSI HERNANDEZ ([id number]) 1960 F Date Time Provider Department 10/09/22 2:00 PM GURMEET OJEDA During your visit today, we recorded the following information about you: Temperature Pulse Blood pressure Weight 97.5 degrees 60/minute 91/60 71.3 kg Height 1.575 m Katelin Harrishan, 10/09/2022 5:08 PM Signed [facility]YP[facility] SERVICE DATE: 10/09/2022 [...] CKD, ESRD, hearing loss. 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 Normal [facility] URINALYSIS, REFLEX MICROSCOP ICon 10-09-2022 Bacteria LM.HPF (Urine sed) [#/Area] Few Abnormal None Seen [facility] Comment on above: Order Comment: Speci men Type: URINE SPECIMEN Ordering Facility: [facility] Address: [address] [place] [address] Performed By: #### L [id number] #### [facility] CLIA [id number] [address] [place] [address] [place] Bilirubin Ql (U) Negative Normal Negative [facility] Comment on above: Order Comment: Speci men Type: URINE SPECIMEN Ordering Facility: [facility] Address: [address] Performed By: #### L [id number] #### [facility] CLIA [id number] [address] [place] [address] [place] Clarity (Unsp spec) Cloudy Abnormal Clear [facility] Comment on above: Order Comment: Speci men Type: URINE SPECIMEN Ordering Facility: [facility] Address: [address] Performed By: #### L [id number] #### [facility] CLIA [id number] [facility] [place] [address] [place] Color (U) Light Yellow Normal Yellow [facility] Comment on above: Order Comment: Speci men Type: URINE SPECIMEN Ordering Facility: [facility] Address: [address] Performed By: #### L [id number] #### [facility] CLIA [id number] [address] [place], [place] [id number] [place] Epithelial cells LM.HPF (Urine sed) [#/Area] Few Normal [facility] Comment on above: Order Comment: Speci men Type: URINE SPECIMEN Ordering Facility: [facility] Address: [address] Performed By: #### L [id number] #### [facility] CLIA [id number] [facility] [place] [address] [place] Glucose Test strip (U) [Mass/Vol] Negative Normal Trace, Negative [facility] Comment on above: Order Comment: Speci men Type: URINE SPECIMEN Ordering Facility: [facility] Address: [address] Performed By: #### L [id number] #### [facility] CLIA [id number] [address] [place] [address] [place] Hemoglobin Ql (U) Trace Normal Negative, Trace [facility] Comment on above: Order Comment: Speci men Type: URINE SPECIMEN Ordering Facility: [facility] Address: [address] Performed By: #### L [id number] #### [facility] CLIA [id number] [address] [place] [address] [place] Ketones Ql (U) Negative Normal Negative, Trace [facility] Comment on above: Order Comment: Speci men Type: URINE SPECIMEN Ordering Facility: [facility] Address: [address] Performed By: #### L [id number] #### [facility] CLIA [id number] [address] [place] [address] [place] Leukocyte esterase Test strip Ql (U) 250 Bonnie/uL Abnormal Negative, 25 Bonnie/uL [facility] Comment on above: Order Comment: Speci men Type: URINE SPECIMEN Ordering Facility: [facility] Address: [address] Performed By: #### L [id number] #### [facility] CLIA [id number] [address] [place] [address] [place] Nitrite Ql (U) 2+ Abnormal Negative [facility] Comment on above: Order Comment: Speci men Type: URINE SPECIMEN Ordering Facility: [facility] Address: [address] [place] [address] Performed By: #### L [id number] #### [facility] CLIA [id number] [address] [place] [address] [place] pH (U) 5.5 [pH] Normal 5.0-8.0 [facility] Comment on above: Order Comment: Speci men Type: URINE SPECIMEN Ordering Facility: [facility] Address: [address] [place] [address] Performed By: #### L [id number] #### [facility] CLIA [id number] [address] [place] [address] [place] Protein (U) [Mass/Vol] Negative Normal Trace , Negative [facility] Comment on above: Order Comment: Speci men Type: URINE SPECIMEN Ordering Facility: [facility] Address: [address] [place] [address] Performed By: #### L [id number] #### [facility] CLIA [id number] [address] [place] [address] [place] RBC LM.HPF (Urine sed) [#/Area] 0-3 /HPF Normal 0-3 /HPF [facility] Comment on above: Order Comment: Speci men Type: URINE SPECIMEN Ordering Facility: [facility] Address: [address] [place] [address] Performed By: #### L [id number] #### [facility] CLIA [id number] [address] [place] [address] [place] Specific gravity (U) [Rel density] 1.015 Normal 1.005-1.03 0 [facility] Comment on above: Order Comment: Speci men Type: URINE SPECIMEN Ordering Facility: [facility] Address: [address] [place] [address] Performed By: #### L [id number] #### [facility] CLIA [id number] [address] [place] [address] [place] Urobilinogen Ql (U) Negative Normal Negative [facility] Comment on above: Order Comment: Speci men Type: URINE SPECIMEN Ordering Facility: [facility] Address: [address] [place] [address] Performed By: #### L [id number] #### [facility] CLIA [id number] [address] [place] [address] [place] WBC LM.HPF (Urine sed) [#/Area] /[HPF] Abnormal 0-5 /HPF [facility] Comment on above: Order Comment: Speci men Type: URINE SPECIMEN Ordering Facility: [facility] Address: [address] [place] [address] Performed By: #### L [id number] #### [facility] CLIA [id number] [address] [place] [address] [place] Bacteria LM.HPF (Urine sed) [#/Area] Few Abnormal None Seen /HPF [facility] Bilirubin Ql (U) Negative Negative [facility] Clarity (Unsp spec) Cloudy Abnormal Clear [facility] Color (U) Light Yellow Yellow [facility] Epithelial cells LM.HPF (Urine sed) [#/Area] Few [facility] Glucose Test strip (U) [Mass/Vol] Negative Trace, Negative [facility] Hemoglobin Ql (U) Trace Negative, [facility] Ketones Ql (U) Negative Negative, Trace [facility] Leukocyte esterase Test strip Ql (U) 250 Bonnie/uL Abnormal Negative, 25 Bonnie/uL [facility] Nitrite Ql (U) 2+ Abnormal Negative [facility] pH (U) 5.5 [pH] 5.0 - 8.0 [facility] Protein (U) [Mass/Vol] Negative Trace , Negative [facility] RBC LM.HPF (Urine sed) [#/Area] 0-3 /HPF 0-3 /HPF [facility] Specific gravity (U) [Rel density] 1.015 1.005 - 1.030 [facility] Urobilinogen Ql (U) Negative Negative [facility] WBC LM.HPF (Urine sed) [#/Area] /[HPF] Abnormal 0-5 /HPF [facility] Consenton 09-03-2022 Consent [id number]#[id number]:1 27 Normal [facility] Registrationon 09-03-2022 Registration [id number]#[id number]:1 27 Normal [facility] 25(OH)D3 [facility]con 2022 25-hydroxyvitamin D3 [Mass/Vol] 34.5 ng/mL Normal 31.0-80.0 [facility] Comment on above: Order Comment: Speci men Type: BLOOD SPECIMEN Ordering Facility: [facility] Address: [address] [address] Result Comment: Clas sification of 25 [place] Vitamin D status: Deficiency/Insufficiency: < or = 30 ng/ml. Sufficiency/Optimal Levels: 31-80 ng/mL Toxicity: > 100 ng/mL. Test performed by chemiluminescent immunoassay. Performed By: #### 1 989-3 #### [facility] CLIA [id number] [address] [place] [address] [place] IMMUNOFIXATION SCREEN, SERUM on 08-23-2022 MPA RESULT No M protein is identified. Normal No M protein is identified . [facility] Comment on above: Order Comment: Speci men Type: BLOOD SPECIMEN Ordering Facility: [facility] Address: [address] [place] [address] Performed By: #### I [facility] #### [facility] CLIA [id number] [facility] [address] [place] STAFF REVIEW (MPA) Reviewed by Cortes Alfredo MD, Ph.D ([id number]) [facility] Comment on above: Order Comment: Speci men Type: BLOOD SPECIMEN Ordering Facility: [facility] Address: [address] [address] Performed By: #### I FESC #### [facility] CLIA [id number] [address] [place] [address] [place] IMMUNOGLOBULINS GAMon 2022 IgA [Mass/Vol] 218 mg/dL Normal 70-400 [facility] Comment on above: Order Comment: Speci men Type: BLOOD SPECIMEN Ordering Facility: [facility] Address: [address] [place] [address] Performed By: #### S ERIMM #### [facility] CLIA [id number] [address] [place] [address] [place] IgG [Mass/Vol] 775 mg/dL Normal 700-1600 [facility] Comment on above: Order Comment: Speci men Type: BLOOD SPECIMEN Ordering Facility: [facility] Address: [address] [place] [address] Performed By: #### S ERIMM #### [facility] CLIA [id number] [address] [place] [address] [place] IgM [Mass/Vol] 129 mg/dL Normal 40-230 [facility] Comment on above: Order Comment: Speci men Type: BLOOD SPECIMEN Ordering Facility: [facility] Address: [address] [place] [address] Performed By: #### S ERIMM #### [facility] CLIA [id number] [address] [place] [address] [place] KAPPA/THAO,FREE,SERon 2022 Immunoglobulin light chains.kappa.free (S) [Mass/Vol] 26.1 mg/L High 3.3-19.4 [facility] Comment on above: Order Comment: Speci men Type: BLOOD SPECIMEN Ordering Facility: [facility] Address: [address] [place] [address] Result Comment: Rare ly, increased serum free light chains levels may not be detected or accurately quantified due to prozone phenomenon or in high viscosity samples using this immunoturbidimetric assay. Correlation with other laboratory results and clinical findings is recommended. The [place] Free Light Chain was performed using the Binding Site Optilite immunoturbidimetric method. Result obtained with different assay methods or kits cannot be used interchangeably. Performed By: #### K LFRS #### [facility] CLIA [id number] [address] [place] [address] Immunoglobulin light chains.kappa/Immunoglo bulin light chains.lambda (S) [Mass ratio] 1.01 Normal 0.26-1.65 [facility] Comment on above: Order Comment: Speci men Type: BLOOD SPECIMEN Ordering Facility: [facility] Address: [address] [place] [address] Performed By: #### K LFRS #### [facility] CLIA [id number] [address] [place] [address] Immunoglobulin light chains.lambda.free [Mass/Vol] 25.9 mg/L Normal 5.7-26.3 [facility] Comment on above: Order Comment: Speci men Type: BLOOD SPECIMEN Ordering Facility: [facility] Address: [address] [place] [address] Result Comment: Rare ly, increased serum free [...] interchangeably. Performed By: #### K LFRS #### [facility] CLIA [id number] [address] [place] [address] [place] Renal function 2000 panelon 08-23-2022 Albumin [Mass/Vol] 4.3 g/dL Normal 3.9-4.9 [facility] Comment on above: Order Comment: Speci men Type: BLOOD SPECIMEN Ordering Facility: [facility] Address: [address] [address] Performed By: #### 2 4362-6 #### [facility] [place] [id number] [address] [place] [address] [place] Anion gap [Moles/Vol] 9 mmol/L Normal 9-18 [facility] Comment on above: Order Comment: Speci men Type: BLOOD SPECIMEN Ordering Facility: [facility] Address: [address] [address] Performed By: #### 2 4362-6 #### [facility] CLIA [id number] [address] [place] [address] [place] Calcium [Mass/Vol] 9.9 mg/dL Normal 8.5-10.2 [facility] Comment on above: Order Comment: Speci men Type: BLOOD SPECIMEN Ordering Facility: [facility] Address: [address] [address] Performed By: #### 2 4362-6 #### [facility] CLIA [id number] [place] [address] [place] Chloride [Moles/Vol] 105 mmol/L Normal 97-105 [facility] Comment on above: Order Comment: Speci men Type: BLOOD SPECIMEN Ordering Facility: [facility] Address: [address] [address] Performed By: #### 2 4362-6 #### [facility] CLIA [id number] [address] [place] [address] [place] CO2 [Moles/Vol] 25 mmol/L Normal 22-30 [facility] Comment on above: Order Comment: Speci men Type: BLOOD SPECIMEN Ordering Facility: [facility] Address: [address] [place], [place] [address] Performed By: #### 2 4362-6 #### [facility] IA [id number] [address] [place] [address] [place] Creatinine [Mass/Vol] 1.42 mg/dL High 0.58-0.96 [facility] Comment on above: Order Comment: Carmen juarez Type: BLOOD SPECIMEN Ordering Facility: [facility] Address: [address] [id number] Performed By: #### 2 4362-6 #### [facility] CLIA [id number] [address] [place] [address] [place] ESTIMATED GLOMERULAR FILTRATION RATE 42 mL/min/1.73m??? Low >=60 [facility] Comment on above: Order Comment: Carmen juarez Type: BLOOD SPECIMEN Ordering Facility: [facility] Address: [address] [phone] Result Comment: Jody mated Glomerular Filtration Rate [...] GFR. Performed By: #### 2 4362-6 #### [facility] CLIA [id number] [address] [id number] [place] Glucose [Mass/Vol] 70 mg/dL Low 74-99 [facility] Comment on above: Order Comment: Carmen juarez Type: BLOOD SPECIMEN Ordering Facility: [facility] Address: [address] [place], [place] [phone] Result Comment: The [place] Diabetes Association (ADA) provides guidance for cutoff [...] Standards of Medical Care in Diabetes 2016, [place] Diabetes Association. Diabetes Care. 2016.39(Suppl 1). Performed By: #### 2 4362-6 #### [facility] IA [id number] [address] [place] [address] [place] Phosphate [Mass/Vol] 2.5 mg/dL Low 2.7-4.8 [facility] Comment on above: Order Comment: Speci men Type: BLOOD SPECIMEN Ordering Facility: [facility] Address: [address] [place] [address] Performed By: #### 2 4362-6 #### [facility] IA [id number] [address] [place] [address] [place] Potassium [Moles/Vol] 4.8 mmol/L Normal 3.7-5.1 [facility] Comment on above: Order Comment: Speci men Type: BLOOD SPECIMEN Ordering Facility: [facility] Address: [address] [place] [address] Performed By: #### 2 4362-6 #### [facility] IA [id number] [place] [address] [place] Sodium [Moles/Vol] 139 mmol/L Normal 136-144 [facility] Comment on above: Order Comment: Speci men Type: BLOOD SPECIMEN Ordering Facility: [facility] Address: [address] [place] [address] Performed By: #### 2 4362-6 #### [facility] IA [id number] [place] [address] [place] Urea nitrogen [Mass/Vol] 18 mg/dL Normal 7-21 [facility] Comment on above: Order Comment: Speci men Type: BLOOD SPECIMEN Ordering Facility: [facility] Address: [address] [address] Performed By: #### 2 4362-6 #### [facility] IA [id number] [place] [address] [place] US KIDNEY/BLADDERon 08-24-19 US KIDNEY/BLADDER * * *Final Report* * * DATE OF EXAM: Aug 23 2022 2:15PM [facility] 1055 - KIDNEY/BLADDER / PROCEDURE REASON: Stage 3b [...] residual bladder volume 4. Right renal cyst Programmer Developer: [facility] Transcribe Date/Time: Aug 28 2022 8:25A Dictated by : ALEAH QUINN MD This examination was interpreted and the report reviewed and electronically signed by: ALEAH QUINN MD on Aug 28 2022 8:28AM EST [id number] [facility] 08-09-2022 [facility] Office Visit (ELPIDIO ) ----- DEYSI HERNANDEZ ([id number]) 1960 F Date Time Provider Department 08/09/22 3:00 PM GURMEET OJEDA During your visit today, we recorded the following information about you: Temperature Pulse Blood pressure Weight 97.7 degrees 65/minute 98/64 72.5 kg Height 1.575 m Debra Fishman MD 08/09/2022 7:02 PM Signed [facility] HYPERTENSION [facility] SERVICE DATE: 08/09/2022 [...] CKD, ESRD, hearing loss. 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 Normal [facility] URINALYSIS, REFLEX MICROSCOP ICon 08-09-2022 Bilirubin Ql (U) Negative [facility] Comment on above: Order Comment: Speci men Type: URINE SPECIMEN Ordering Facility: [facility] Address: [address] [place] [address] Performed By: #### L [id number] #### [facility] CLIA [id number] [facility] [place] [address] [place] Clarity (Unsp spec) Clear Normal Clear [facility] Comment on above: Order Comment: Speci men Type: URINE SPECIMEN Ordering Facility: [facility] Address: [address] [address] Performed By: #### L [id number] #### [facility] CLIA [id number] [facility] [place] [address] [place] Color (U) Light Yellow Normal Yellow [facility] Comment on above: Order Comment: Speci men Type: URINE SPECIMEN Ordering Facility: [facility] Address: [address] [address] Performed By: #### L [id number] #### [facility] CLIA [id number] [address] [place] [address] [place] Glucose Test strip (U) [Mass/Vol] Negative Normal Trace, Negative [facility] Comment on above: Order Comment: Speci men Type: URINE SPECIMEN Ordering Facility: [facility] Address: [address] [address] Performed By: #### L [id number] #### [facility] CLIA [id number] [address] [place] [address] [place] Hemoglobin Ql (U) Negative Normal Negative, Trace [facility] Comment on above: Order Comment: Speci men Type: URINE SPECIMEN Ordering Facility: [facility] Address: [address] [address] Performed By: #### L [id number] #### [facility] CLIA [id number] [address] [place] [address] [place] Ketones Ql (U) Negative Normal Negative, Trace [facility] Comment on above: Order Comment: Speci men Type: URINE SPECIMEN Ordering Facility: [facility] Address: [address] [place] [address] Performed By: #### L [id number] #### [facility] CLIA [id number] [address] [place] [address] [place] Leukocyte esterase Test strip Ql (U) 75 Bonnie/uL Abnormal Negative, 25 Bonnie/uL [facility] Comment on above: Order Comment: Speci men Type: URINE SPECIMEN Ordering Facility: [facility] Address: [address] [place] [address] Performed By: #### L [id number] #### [facility] CLIA [id number] [address] [place] [address] [place] Nitrite Ql (U) Negative Normal Negative [facility] Comment on above: Order Comment: Speci men Type: URINE SPECIMEN Ordering Facility: [facility] Address: [address] Performed By: #### L [id number] #### [facility] CLIA [id number] [address] [place] [address] [place] pH (U) 6.0 [pH] Normal 5.0-8.0 [facility] Comment on above: Order Comment: Speci men Type: URINE SPECIMEN Ordering Facility: [facility] Address: [address] [place], [place] [id number] Performed By: #### L [id number] #### [facility] CLIA [id number] [facility] [place] [address] [place] Protein (U) [Mass/Vol] Negative Normal Trace , Negative [facility] Comment on above: Order Comment: Speci men Type: URINE SPECIMEN Ordering Facility: [facility] Address: [address] [place] [address] Performed By: #### L [id number] #### [facility] CLIA [id number] [address] [place] [address] [place] Specific gravity (U) [Rel density] 1.009 Normal 1.005-1.03 0 [facility] Comment on above: Order Comment: Speci men Type: URINE SPECIMEN Ordering Facility: [facility] Address: [address] [place] [address] Performed By: #### L [id number] #### [facility] CLIA [id number] [address] [place] [address] [place] Urobilinogen Ql (U) Negative Normal Negative [facility] Comment on above: Order Comment: Speci men Type: URINE SPECIMEN Ordering Facility: [facility] Address: [address] [place] [address] Performed By: #### L [id number] #### [facility] CLIA [id number] [address] [place] [address] [place] Bilirubin Ql (U) Negative Negative [facility] Clarity (Unsp spec) Clear Clear [facility] Color (U) Light Yellow Yellow [facility] Glucose Test strip (U) [Mass/Vol] Negative Trace, Negative [facility] Hemoglobin Ql (U) Negative Negative, Trace [facility] Ketones Ql (U) Negative Negative, Trace [facility] Leukocyte esterase Test strip Ql (U) 75 Bonnie/uL Abnormal Negative, 25 Bonnie/uL [facility] Nitrite Ql (U) Negative Negative [facility] pH (U) 6.0 [pH] 5.0 - 8.0 [facility] Protein (U) [Mass/Vol] Negative Trace , Negative [facility] Specific gravity (U) [Rel density] 1.009 1.005 - 1.030 [facility] Urobilinogen Ql (U) Negative Negative [facility] Consent for Procedure/Surger yon 06-19-2022 Consent for Procedure/Surgery [id number]#1.00CD:12 7 Normal [facility] Gastroenterology Office/Clin ic Noteon 06-16-2022 [...] colonoscopy at the beginning of 02/2022 in [facility]. She states that they did remove a [...] a few months ago at an outside facility/[facility]. She was found to have a few polyps. She was advised to repeat her colonoscopy in 2027. ATTESTATION: Documentation services were performed after patient or guardian consented to allow Chandan Obregon to record this visit. MIKALA business specialist and provider reviewed before signing. MIKALA: [...] Use:. Never (more content not included)... Normal [facility] Comment on above: Result Comment: Elec tronically Signed By: Berenice Joyner\.br\Date and Time Signed: 06/14/22 14:24 EDT\.br\Electronically Co-Signed By: Jamie BILLS MD\.br\Date and Time Co-Signed: 06/16/22 14:25 EDT Lab Report[facility] 06-13-2022 Lab Reports [id number]:12 7 Normal [facility] LIPID PROFILEon 06-12-2022 CHOL-HDL RATIO NORM SEE BELOW Normal [facility] Comment on above: Result Comment: 3.3 - 4.4 LOW RISK 4.4 - 7.1 AVERAGE RISK 7.1 - 11.0 MODERATE RISK >11.0 HIGH RISK Performed By: #### L IPID, BMP #### Laboratory [address] [place] [address] Dr. Moreno Amato Cholesterol [Mass/Vol] 178 mg/dL Normal <=200 Th e Comment on above: Performed By: #### L IPID, BMP #### Laboratory [address] [address] [address] Moreno Amato Cholesterol in HDL [Mass/Vol] 39 mg/dL Critically low 40-60 [facility] Comment on above: Performed By: #### L IPID, BMP #### Laboratory [address] [address] [address] Moreno Amato Cholesterol in LDL [Mass/Vol] 92.0 mg/dL Normal [facility] Comment on above: Performed By: #### L IPID, BMP #### Laboratory [address] [place] [address] Dr. Moreno Amato Cholesterol.total/Chol esterol in HDL [Mass ratio] 4.6 {ratio} Normal [facility] Comment on above: Performed By: #### L IPID, BMP #### Laboratory [address] [address] [address] Moreno Amato HDL NORMAL > or = 60 mg/dl - LO W CARDIOVASCULAR RISK <40 mg/dl - HIGH CARDIOVASCULAR RISK Normal [facility] Comment on above: Performed By: #### L IPID, BMP #### Laboratory [address] [place] [address] Dr. Moreno Amato LDL CALC NORMAL SEE BELOW Normal [facility] Comment on above: Result Comment: <100 mg/dl OPTIMAL 100 - 129 mg/dl NEAR OR ABOVE OPTIMAL 130 - 159 mg/dl BORDERLINE HIGH 160 - 189 mg/dl HIGH >190 mg/dl VERY HIGH Performed By: #### L IPID, BMP #### Laboratory [address] [address] [address] Moreno Amato Triglyceride [Mass/Vol] 235 mg/dL Critically high <=150 [facility] Comment on above: Performed By: #### L IPID, BMP #### Laboratory [address] [address] [address] Moreno Amato VLDL CALC 47.0 mg/dL Normal [facility] Comment on above: Performed By: #### L IPID, BMP #### Laboratory [address] [place] [address] Dr. Moreno Amato PROF CHEM 8 (BAS METB)on Anion gap [Moles/Vol] 10.7 mmol/L Normal [facility] Comment on above: Performed By: #### L IPID, BMP #### Laboratory [address] [place] [address] Dr. Moreno Amato Calcium [Mass/Vol] 9.6 mg/dL Normal 8.5-10.1 [facility] Comment on above: Performed By: #### L IPID, BMP #### Laboratory [address] [place] [address] Dr. Moreno Amato Chloride [Moles/Vol] 104 mmol/L Normal 98-107 [facility] Comment on above: Performed By: #### L IPID, BMP #### Laboratory [address] [place] [address] Dr. Moreno Amato CO2 [Moles/Vol] 31.6 mmol/L Normal 21.0-32.0 [facility] Comment on above: Performed By: #### L IPID, BMP #### Laboratory [address] [place] [address] Dr. Moreno Amato Creatinine [Mass/Vol] 1.58 mg/dL Critically high 0.55-1.02 [facility] Comment on above: Performed By: #### L IPID, BMP #### Laboratory [address] [place] [address] Dr. Moreno Amato EGFR-AF [place] 40 mL/min/1.73m2 Critically low >=60 [facility] Comment on above: Performed By: #### L IPID, BMP #### Laboratory [address] [place] [address] Dr. Moreno Amato EGFR-NON AF [place] 33 mL/min/1.73m2 Critically low >=60 [facility] Comment on above: Performed By: #### L IPID, BMP #### Laboratory [address] [place] [address] Dr. Moreno Amato Glucose [Mass/Vol] 79 mg/dL Normal 74-106 [facility] Comment on above: Performed By: #### L IPID, BMP #### Laboratory [address] [place] [address] Dr. Moreno Amato Potassium [Moles/Vol] 4.3 mmol/L Normal 3.5-5.1 [facility] Comment on above: Performed By: #### L IPID, BMP #### Laboratory [address] [place] [address] Dr. Moreno Amato Sodium [Moles/Vol] 142 mmol/L Normal 136-145 [facility] Comment on above: Performed By: #### L IPID, BMP #### Laboratory [address] [place] [address] Dr. Moreno Amato Urea nitrogen [Mass/Vol] 21.0 mg/dL Critically high 7.0-18.0 [facility] Comment on above: Performed By: #### L IPID, BMP #### Laboratory [address] [place] [address] Dr. Moreno Amato Urea nitrogen/Creatinine [Mass ratio] 13.3 mg/mg Normal [facility] Comment on above: Performed By: #### L IPID, BMP #### Laboratory [address] [place] [address] Dr. Moreno Amato URINE T PROTEIN CREAT RATIOo n 06-12-2022 Protein (U) [Mass/Vol] 8.8 mg/dL Normal <=12.0 [facility] Comment on above: Performed By: #### A MY, CMP, LIPA #### Laboratory [address] [place] [address] Dr. Moreno Amato UR PROT CREAT RAT 0.12 Normal [facility] Comment on above: Performed By: #### A MY, CMP, LIPA #### Laboratory [address] [place] [address] Dr. Moreno Amato URINE CREAT 70.82 mg/dL Normal 20.00-300. 00 [facility] Comment on above: Performed By: #### A MY, CMP, LIPA #### Laboratory [address] [address] [address] Moreno Amato Patient Educationon 06-07-19 Patient [...] health care provider. General instructions ? Take [id number] and prescription medicines only as told by [...] monitor yo (more content not included)... Normal [facility] Urology Office/Clinic Noteon 06-06-2022 Urology [...] in 1 week(s) for session #4 Ordered: 85836 EMG anal/urethral sphincter no needle 20636 Biofeedback training, perineal muscles, anorectal 92089 Anorectal Manometry 14818 ELECTRICAL STIMULATION 21681 Urnls Dip Stick Auto w/o Microscopy POC 42964 Follow-up No qualifying data available 1 WEEK [...] Protein Urine Dipstick: Negative (06/06/22 10:58:00) Specific [place] Urine Dipstick: 1.015 (06/06/22 10:58:00) Urine Appearance Urine Dipstick: Clear (06/06/22 10:58:00) Urine Color Urine Dipstick: Yellow (06/06/22 10:58:00) Urobilinogen Urine Dipstick: Normal 0.2-1 EU/dl (06/06/22 10:58:00) pH Urine Dipstick: 5.5 (06/06/22 10:58:00) Normal [facility] Comment on above: Result Comment: Elec tronically Signed By: NGUYỄN BRIDGES, TRUDY Goldsmith\.br\Date and Time Signed: 06/06/22 11:24 EDT EMG Electromyographyon 05-31 EMG Electromyography [id number]#1.00CD:12 7 Normal [facility] Patient Educationon 05-31-19 Patient Education Obstetrics and Gynec ology Overactive [...] Take ove (more content not included)... Normal [facility] Urology Office/Clinic Noteon 05-30-2022 Urology Office/Clinic Note [...] in 1 week(s) for session #3 Ordered: 93684 EMG anal/urethral sphincter no needle 81566 Biofeedback training, perineal muscles, anorectal 04094 Anorectal Manometry 69838 ELECTRICAL STIMULATION 69619 Urnls Dip Stick Auto w/o Microscopy POC 92763 Follow-up With When Contact Information [facility] [address] [place] [address] Business (1) Additional Instructions: for [...] Protein Urine Dipstick: Negative (05/30/22 11:22:00) Specific [place] Urine Dipstick: 1.020 (05/30/22 11:22:00) Urine Appearance Urine Dipstick: Clear (05/30/22 11:22:00) Urine Color Urine Dipstick: Yellow (05/30/22 11:22:00) Urobilinogen Urine Dipstick: Normal 0.2-1 EU/dl (05/30/22 11:22:00) pH Urine Dipstick: 5.5 (05/30/22 11:22:00) Normal [facility] Comment on above: Result Comment: Elec tronically Signed By: TRUDY KNOTT PA-C\.br\Date and Time Signed: 05/30/22 13:37 EDT EMG Electromyographyon 05-24 EMG Electromyography [id number]:12 7 Normal [facility] EMG Electromyography [id number]:12 7 Normal [facility] Ambulatory Visit Summaryon 0 05-23-2022 Ambulatory Visit Summary DEYSI HERNANDEZ :1960 Visit Date:05/23/2022 Ambulatory Visit Instructions Your Diagnosis Stress incontinence, female Urinary urgency Urinary frequency Tests Performed Urnls Dip Stick Auto w/o Microscopy POC 69109 Your Care Team Attending Physician - TRUDY [...] TRUDY KNOTT PA-C Where: [facility] [place] Invalid Interpretation Code [address] [place] [place] [address]- \. br\ Saturday 10:30 AM EDT \.br\ With: NGUYỄN BRIDGES, TRUDY Goldsmith\.br\ Where: [facility] Patient Educationon 05-24-19 23 Patient Education Obstetrics and Gynec ology [...] 09/24/2018 Document Reviewed: 09/24/2018 Elsevier Patient Education ? 2019 [employer]. Marielena Ramirez [facility] Urology Office/Clinic Noteon 05-23-2022 Urology Office/Clinic Note [...] in 1 week(s) for session #2 Ordered: 94033 EMG anal/urethral sphincter no needle 96618 Biofeedback training, perineal muscles, anorectal 36618 Anorectal Manometry 77560 ELECTRICAL STIMULATION 21247 Urnls Dip Stick Auto w/o Microscopy POC 00589 2. Urinary urgency (R39.15: Urgency of urination) see#1 Ordered: 78095 EMG anal/urethral sphincter no needle 14126 Biofeedback training, perineal muscles, anorectal 03369 Anorectal Manometry 21957 ELECTRICAL STIMULATION 76136 3. Urinary frequency (R35.0: Frequency of micturition) see #1 Ordered: 83657 EMG anal/urethral sphincter no needle 55362 Biofeedback training, perineal muscles, anorectal 78672 Anorectal Manometry 36209 ELECTRICAL STIMULATION 05167 Follow-up No qualifying data available 1 week [...] Protein Urine Dipstick: Negative (05/23/22 10:42:00) Specific [place] Urine Dipstick: 1.015 (05/23/22 10:42:00) Urine Appearance Urine Dipstick: Clear (05/23/22 10:42:00) Urine Color Urine Dipstick: Light yellow (05/23/22 10:42:00) Urobilinogen Urine Dipstick: Normal 0.2-1 EU/dl (05/23/22 10:42:00) pH Urine Dipstick: 5.5 (05/23/22 10:42:00) Normal [facility] Comment on above: Result Comment: Elec tronically Signed By: TRUDY KNOTT PA-C\.br\Date and Time Signed: 05/23/22 12:12 EDT Pre-Certification Formon Pre-Certification Form [id number]#[id number]:1 27 Normal [facility] HEMOGLOBINon 04-30-2022 Hemoglobin (Bld) [Mass/Vol] 15.3 g/dL Normal 12.0-16.0 [facility] Comment on above: Performed By: #### A MY, CMP, LIPA #### Laboratory [address] [place] [address] Dr. Moreno Amato Physician Referralon 023 Physician Referral [id number]#[id number]:12 7 Normal [facility] Ambulatory Visit Summaryon 0 04-11-2022 Ambulatory Visit Summary DEYSI HERNANDEZ :1960 Visit Date:04/11/2022 Ambulatory Visit Instructions Your Diagnosis Stress incontinence, female Tests Performed Urnls Dip Stick Auto w/o Microscopy POC 22656 Your Care Team Attending Physician - TRUDY [...] Schedule the Following Appointments Follow Up with VERONICA KNOTT PA-CFER E, URL When: Where: [address] [place] [address] Medications What How Much When Instructions Unchanged [...] Urnls Dip Stick Auto w/o Microscopy POC 47138 (04/11/2022) Bilirubin Urine Dipstick - Negative Blood Urine Dipstick - Trace-intact Glucose Urine Dipstick - Negative Ketones Urine Dipstick - Negative Leukocytes Urine Dipstick - Trace Nitrite Urine Dipstick - Negative Protein Urine Dipstick - 1+ (30 mg/dl) Specific [place] Urine Dipstick - 1.025 Urine Appearance Urine [...] 01/21/2013 Document Revised: 09/24/2018 Document Reviewed: 09/24/2018 [employer] Patient Education ? 2020 Cell[employer]us. [facility] Patient Educationon 04-11-19 Patient Education Obstetrics and Gynec ology Kegel [...] 01/21/2013 Document Revised: 09/24/2018 Document Reviewed: 09/24/2018 [employer] Patient Education ? 2019 Cell[employer]. Marielena [facility] Urology Office/Clinic Noteon 04-11-2022 Urology Office/Clinic [...] pt prefers to proceed with PFPT in [place] and Leila Sanchez in meantime. Follow-up With When Contact Information NGUYỄN BRIDGES, TRUDY Goldsmith, URL [address] [address] Additional Instructions: Follow up for PFPT with biofeedback Patient Education Kegel Exercises Documentation recorded by the scribrupal Plata accurately reflects the services(s) I performed [...] mg/dl) (04/11/22 (more content not included)... Normal [facility] Comment on above: Result Comment: Elec tronically Signed By: TRUDY KNOTT PA-C\.br\Date and Time Signed: 04/11/22 13:17 EST\.br\Electronically Co-Signed By: Jolene Plata\.br\Date and Time Co-Signed: 04/11/22 11:55 EST Lab Reportson 04-04-2022 Lab Reports [id number]#[id number]:12 7 Normal [facility] LIPID PROFILEon 03-27-2022 CHOL-HDL RATIO NORM SEE BELOW Normal [facility] Comment on above: Result Comment: 3.3 - 4.4 LOW RISK 4.4 - 7.1 AVERAGE RISK 7.1 - 11.0 MODERATE RISK >11.0 HIGH RISK Performed By: #### A MY, CMP, LIPA #### Laboratory [address] [address] [address] Moreno Amato Cholesterol [Mass/Vol] 217 mg/dL Critically high <=200 [facility] Comment on above: Performed By: #### A MY, CMP, LIPA #### Laboratory [address] [address] [address] Moreno Amato Cholesterol in HDL [Mass/Vol] 42 mg/dL Normal 40-60 [facility] Comment on above: Performed By: #### A MY, CMP, LIPA #### Laboratory [address] [address] [address] Moreno Amato Cholesterol in LDL [Mass/Vol] 121.6 mg/dL Normal [facility] Comment on above: Performed By: #### A MY, CMP, LIPA #### Laboratory [address] [address] [address] Moreno Amato Cholesterol.total/Chol esterol in HDL [Mass ratio] 5.2 {ratio} Normal [facility] Comment on above: Performed By: #### A MY, CMP, LIPA #### Laboratory [address] [address] [address] Moreno Amato HDL NORMAL > or = 60 mg/dl - LO W CARDIOVASCULAR RISK <40 mg/dl - HIGH CARDIOVASCULAR RISK Normal [facility] Comment on above: Performed By: #### A MY, CMP, LIPA #### Laboratory [address] [address] [address] Moreno Amato LDL CALC NORMAL SEE BELOW Normal [facility] Comment on above: Result Comment: <100 mg/dl OPTIMAL 100 - 129 mg/dl NEAR OR ABOVE OPTIMAL 130 - 159 mg/dl BORDERLINE HIGH 160 - 189 mg/dl HIGH >190 mg/dl VERY HIGH Performed By: #### A MY, CMP, LIPA #### Laboratory [address] [address] [address] Moreno Amato Triglyceride [Mass/Vol] 267 mg/dL Critically high <=150 [facility] Comment on above: Performed By: #### A MY, CMP, LIPA #### Laboratory [address] [address] [address] Moreno Amato VLDL CALC 53.4 mg/dL Normal [facility] Comment on above: Performed By: #### A MY, CMP, LIPA #### Laboratory [address] [place] [address] Dr. Moreno Amato PROF CHEM 8 (BAS METB)on Anion gap [Moles/Vol] 11.1 mmol/L Normal [facility] Comment on above: Performed By: #### A MY, CMP, LIPA #### Laboratory [address] [address] [address] Moreno Amato Calcium [Mass/Vol] 9.2 mg/dL Normal 8.5-10.1 [facility] Comment on above: Performed By: #### A MY, CMP, LIPA #### Laboratory [address] [address] [address] Moreno Amato Chloride [Moles/Vol] 104 mmol/L Normal 98-107 [facility] Comment on above: Performed By: #### A MY, CMP, LIPA #### Laboratory [address] [place] [address] Dr. Moreno Amato CO2 [Moles/Vol] 27.4 mmol/L Normal 21.0-32.0 [facility] Comment on above: Performed By: #### A MY, CMP, LIPA #### Laboratory [address] [place] [address] Dr. Moreno Amato Creatinine [Mass/Vol] 1.30 mg/dL Critically high 0.55-1.02 [facility] Comment on above: Performed By: #### A MY, CMP, LIPA #### Laboratory [address] [place] [address] Dr. Moreno Amato EGFR-AF [place] 51 mL/min/1.73m2 Critically low >=60 [facility] Comment on above: Performed By: #### A MY, CMP, LIPA #### Laboratory [address] [place] [address] Dr. Moreno Amato EGFR-NON AF [place] 42 mL/min/1.73m2 Critically low >=60 [facility] Comment on above: Performed By: #### A MY, CMP, LIPA #### Laboratory [address] [place] [address] Dr. Moreno Amato Glucose [Mass/Vol] 102 mg/dL Normal 74-106 [facility] Comment on above: Performed By: #### A MY, CMP, LIPA #### Laboratory [address] [place] [address] Dr. Moreno Amato Potassium [Moles/Vol] 4.5 mmol/L Normal 3.5-5.1 The Comment on above: Performed By: #### A MY, CMP, LIPA #### Laboratory [address] [place] [address] Dr. Moreno Amato Sodium [Moles/Vol] 138 mmol/L Normal 136-145 [facility] Comment on above: Performed By: #### A MY, CMP, LIPA #### Laboratory [address] [place] [address] Dr. Moreno Amato Urea nitrogen [Mass/Vol] 23.0 mg/dL Critically high 7.0-18.0 [facility] Comment on above: Performed By: #### A MY, CMP, LIPA #### Laboratory [address] [address] [address] Moreno Amato Urea nitrogen/Creatinine [Mass ratio] 17.7 mg/mg Normal [facility] Comment on above: Performed By: #### A MY, CMP, LIPA #### Laboratory [address] [address] [address] Moreno Amato SGOTon 03-27-2022 AST [Catalytic activity/Vol] 24 U/L Normal 15-37 [facility] Comment on above: Performed By: #### A MY, CMP, LIPA #### Laboratory [address] [address] [address] Moreno Amato SGPTon 03-27-2022 ALT [Catalytic activity/Vol] 20 U/L Normal 14-59 [facility] Comment on above: Performed By: #### A TOMMY, CMP, LIPA #### Laboratory [address] [address] [address] Moreno Amato COVID/FLU RT-PCRon 3 SARS-CoV-2 (COVID-19) RNA ELISA+probe Ql (Unsp spec) Negative [facility] [employer] Other COVID/FLU RT-PCR Negative [facility] [employer] Other Quick Strepon 03-19-2022 S. pyogenes Org specific cx Ql (Throat) Negative [employer] Other Quick Strep [employer] Other Tobacco Screening.on 023 Adult depression screening assessment No [facility] 250 DO Work Phone: Fall risk assessment c) Not medically indicated [facility] 250 DO Work Phone: Tobacco use status [facility] b) No [facility] 250 DO Work Phone: PAP ACOG PANEL 2: 30 to 65on 03-02-2022 . . Normal [facility] Comment on above: Result Comment: Perf ormed at: WB Performed By: #### A MY, CMP, LIPA #### Laboratory [address] [address] [address] Moreno Amato Age Gdln ACOG Testing 30-65 Normal [facility] Comment on above: Performed By: #### A MY, CMP, LIPA #### Laboratory [address] [address] [address] Moreno Amato DIAGNOSIS: Comment [facility] Comment on above: Result Comment: NEGA TIVE FOR INTRAEPITHELIAL LESION OR MALIGNANCY. Performed at: WB Performed By: #### A MY, CMP, LIPA #### Laboratory [address] [address] [address] Moreno Amato HPV Aptima Negative Normal Negative [facility] Comment on above: Result Comment: This nucleic acid amplification test detects fourteen high-risk HPV types (16,18,31,33,35,39,45,51,52,56,58,59,66,68) without differentiation. Performed at: =G Performed By: #### A MY, CMP, LIPA #### Laboratory [address] [address] [address] Moreno Amato HPV Genotype Reflex Comment Normal [facility] Comment on above: Result Comment: Crit eria not met, HPV Genotype not performed. Performed at: WB Performed By: #### A MY, CMP, LIPA #### Laboratory [address] [address] [address] Moreno Amato Methodology: Comment [facility] Comment on above: Result Comment: This liquid based ThinPrep(R) pap test was screened with the use of an image guided system. Performed at: WB Performed By: #### A MY, CMP, LIPA #### Laboratory [address] [address] [address] Moreno Amato Note: Comment Normal [facility] Comment on above: Result Comment: The [...] By: #### A MY, CMP, LIPA #### Laboratory [address] [place], [place] [address] Dr. Moreno Amato Performed by: Comment Normal [facility] Comment on above: Result Comment: Maria Luisa Chou, Filter Tip Catcher (ASCP) Performed at: WB Performed By: #### A MY, CMP, LIPA #### Laboratory [address] [place], [place] [address] Dr. Moreno Amato Specimen adequacy: Comment Normal [facility] Comment on above: Result Comment: Sati sfactory for evaluation. Endocervical and/or squamous metaplastic cells (endocervical component) are present. Performed at: WB Performed By: #### A MY, CMP, LIPA #### Laboratory [address] [place], [place] [address] Dr. Moreno Amato XR CHEST 2 Von [...] by: AMY ROSS Date: 2022-02-19 22:40 Normal [facility] CARDIAC STRESS/REST INJE CTIONon 01-23-2022 [facility] CARDIAC STRESS/REST INJECTION Patient Name: DEYSI HERNANDEZ STUDY: MYOCARDIAL PERFUSION STRESS TEST WITH LEXISCAN Performing facility: [facility], [address] [place] [address], [address], [place] [address] [facility] Provider: Carlene Beal MD, [facility] PCP: Dr. Mariann Thompson Supervising provider: Autumn Guidry RN, CABLE INSTALLATION TECHNICIAN INDICATION: Chest discomfort Elevated troponin Hyperlipidemia HISTORY: Gender: F; Age: 61 y/o ; Height: 0 cm; Weight: 71.1247939 kg. High Cholesterol; HTN; Chest Pain; Quit smoking <1 year ago. COMPARISON: No comparison. ACCESSION NUMBER(S): [id number]; [id number]; [id number] ORDERING CLINICIAN: MARQUEZ BEAL TECHNIQUE: ONE DAY [...] Electronically signed by: WAQAR MARTINEZ MD Normal [facility] No [facility] Informationon 01-[address] [facility] Work Phone: Tobacco Screening.on 022 Fall risk assessment a) No falls within the last year [facility] 600 DO Work Phone: Tobacco use status [facility] b) No -[facility] 600 DO Work Phone: MG MAMM SCREEN 3D NIRMALA CADon 10-30-2021 MG MAMM SCREEN 3D NIRMALA CAD Patient: DEYSI HERNANDEZ Exam Date: 10/30/2021 : 1960 Gender:F Ordering : SHAIKH Ford THOMPSON . Admission #: [id number] Family : Order #: [id number] CLICK HERE TO VIEW EXAM RADIOLOGY REPORT PROCEDURE: MAMMOGRAM SCREENING 3D BILATERAL CAD COMPARISON: MG MAMM NIRMALA SCRN W CAD DIG, 12/05/2012. INDICATIONS: Screening mammography Calculator Name NCI Breast Cancer Risk Assessment Tool 5 Year Breast Cancer Risk 1.00% Lifetime Breast Cancer Risk 5.50% Personal Breast Cancer No Personal Ovarian Cancer No Treatments None Family Cancers None LOCATION: The BREAST COMPOSITION: Scattered areas fibroglandular density. FINDINGS: [...] M.D. on 10/31/2021 at 08:52 Normal [facility] Cardiac Stress Teston 2021 [facility] [address] [place] [address], [address] [place] [address] Exercise Stress Test Patient Name: DEYSI HERNANDEZ Ordering Physician: [id number] Beal MD Study Date: 10/17/2021 Reading Physician: [id number] Jaycob Newman MD, [facility] MRN/PID: [id number] Supervising Physician: [id number] Jaycob Newman MD, [facility] Accession/Order#: [id number] Referring Physician: [id number] MARQUEZ BEAL Date of : 1960 PCP: Mariann THOMPSON Gender: M Fellow: Height: 162.56 cm Nurse: Jackie Shen RN Weight: 68.95 kg Clothes Wringer: KYLE BSA: 1.74 m2 Technologist: BMI: 26.09 kg/m2 Additional Staff: Age: 61 years cc report to: Patient Location: cc report to: [id number] Marquez Beal MD Study Type: Cardiac Stress Test Diagnosis/ICD: R07.89-Other chest pain Indication: Chest Pain Atypical Procedure/CPT: Stress Test Interpretation-64456; Stress Test Supervision-04981 Falls Risk: Low: Patient has low risk [...] The adequate level of stress was achieved. [address] Jaycob Newman MD, [facility] Electronically signed on 10/23/2021 at 12:29:13 PM Final Normal [facility] Cardiac Stress Test Please click on the link to view the study images [facility] Work Phone: Cardiac Stress Test MP-No [facility] 250 DO Work Phone: Creatinine and Glomerular fi ltration rate.predicted panel (S/P/Bld)Ordered By: Marquez Beal on 09-18-2021 Creatinine [Mass/Vol] 1.10 mg/dL 0.44-1.03 [facility] Estimated glomerular filtrat ion rate (GFR) non- AmericanOrdered By: Marquez Beal on 09-18-2021 GFR/1.73 sq M.predicted among non-blacks MDRD (S/P/Bld) [Vol rate/Area] 51 mL/Min [facility] No Panel InformationOrdered By: Marquez Beal on 09-18-2021 Estimated GFR () > 60 mL/Min [facility] Comment on above: GFR estimated refere nce range: According to KDOQI guidelines, <60 ml/min/1.73m2 is sufficient to diagnose a patient with chronic kidney disease. Pharmacy Creatinine Clearance (Chem N/A [facility] No Panel Informationon 09-18 9.8\S\9.8 Normal 8.2-10.2 [facility] Work Phone: Comment on above: PERFORMED BY:[facility] [place], [place] [phone] MEDICAL DIRECTORJERAMY CALDWELL M.D. 25.1\S\25.1 Normal 22.0-30.0 [facility] DO Work Phone: 100\S\100 Normal 95-114 [facility] DO Work Phone: 3.9\S\3.9 Normal 3.5-5.1 [facility] [place] 250 DO Work Phone: 138\S\138 Normal 136-146 [facility] [place] [address] 250 DO Work Phone: > 60 Normal [facility] [place] [address] 250 DO Work Phone: Comment on above: GFR estimated refere nce range: According to KDOQI guidelines, <60 ml/min/1.73m2 is sufficient to diagnose a patient with chronic kidney disease. 51\S\51 Normal [facility] [address] 250 DO Work Phone: 1.10\S\1.10 above high threshold 0.44-1.03 [facility] [address] 250 DO Work Phone: 15\S\15 Normal 9-23 [facility] [address] 250 DO Work Phone: 95\S\95 Normal 70-100 [facility] Eric[address]on Osorio DO Work Phone: Comment on above: Random Glucose Refer ence Range is dependent on time and content of last meal. Glucose of more than 200 mg/dL in a nonstressed, ambulatory subject supports the diagnosis of Diabetes Mellitus. ADA recommended reference range Serum or plasma calcium teagan urement (mass/volume)Ordered By: Marquez Beal on 09-18-2021 Calcium [Mass/Vol] 9.8 mg/dL 8.2-10.2 [facility] Serum or plasma chloride sophia surement (moles/volume)Ordered By: Marquez Beal on 09-18-2021 Chloride [Moles/Vol] 100 mmol/L 95-114 [facility] Serum or plasma glucose teagan urement (mass/volume)Ordered By: Marquez Beal on 09-18-2021 Glucose [Mass/Vol] 95 mg/dL 70-100 [facility] Comment on above: ADA recommended refe rence range Random Glucose Reference Range is dependent on time and content of last meal. Glucose of more than 200 mg/dL in a nonstressed, ambulatory subject supports the diagnosis of Diabetes Mellitus. Serum or plasma potassium me asurement (moles/volume)Ordered By: Marquez Beal on 09-18-2021 Potassium [Moles/Vol] 3.9 mmol/L 3.5-5.1 [facility] Serum or plasma sodium measu rement (moles/volume)Ordered By: Marquez Beal on 09-18-2021 Sodium [Moles/Vol] 138 mmol/L 136-146 [facility] Serum or plasma total carbon dioxide measurement (moles/volume)Ordered By: Marquez Beal on 09-18-2021 CO2 [Moles/Vol] 25.1 mmol/L 22.0-30.0 [facility] Serum or plasma urea nitroge n measurement (mass/volume)Ordered By: Marquez Beal on 09-18-2021 Urea nitrogen [Mass/Vol] 15 mg/dL 9-23 [facility] Tobacco Screening.on 022 Adult depression screening assessment No [facility] 250 DO Work Phone: Fall risk assessment a) No falls within the last year [facility] 250 DO Work Phone: Tobacco use status CPHS a) Yes [facility] 250 DO Work Phone: Tobacco Screening. Yes [facility] 250 DO Work Phone: Bacterial blood cultureOrder ed By: Bong Bansal on 08-19-2021 Bacteria identified Cx Nom (Bld) NO GROWTH 5 DAYS [facility] Basophils Auto (Bld) [#/Vol] Ordered By: Alaina Arce on 08-17-2021 Basophils (Bld) [#/Vol] 0.1 10*3/uL 0.0-0.2 [facility] Basophils/100 WBC Auto (Bld) Ordered By: Alaina Arce on 08-17-2021 Basophils/100 WBC (Bld) 0.7 % . [facility] Blood hemoglobin measurement (mass/volume)Ordered By: Alaina Arce on 08-17-2021 Hemoglobin (Bld) [Mass/Vol] 15.0 g/dL 11.8-15.4 [facility] Blood leukocytes automated c ount (number/volume)Ordered By: Alaina Arce on 08-17-2021 WBC (Bld) [#/Vol] 10.0 10*3/uL 4.5-11.0 [facility] Creatinine and Glomerular fi ltration rate.predicted panel (S/P/Bld)Ordered By: Alaina Arce on 08-17-2021 Creatinine [Mass/Vol] 1.27 mg/dL 0.44-1.03 [facility] Eosinophils Auto (Bld) [#/Vo l]Ordered By: Alaina Arce on 08-17-2021 Eosinophils (Bld) [#/Vol] 0.2 10*3/uL 0.0-0.45 [facility] Eosinophils/100 WBC Auto (Bl d)Ordered By: Alaina Arce on 08-17-2021 Eosinophils/100 WBC (Bld) 1.8 % . [facility] Erythrocyte distribution wid th Auto (RBC) [Ratio]Ordered By: Alaina Arce on 08-17-2021 Erythrocyte distribution width (RBC) [Ratio] 12.7 % 11.9-15.3 [facility] Estimated glomerular filtrat ion rate (GFR) non- AmericanOrdered By: Alaina Arce on 08-17-2021 GFR/1.73 sq M.predicted among non-blacks MDRD (S/P/Bld) [Vol rate/Area] 43 mL/Min [facility] Hematocrit Auto (Bld) [Volum e fraction]Ordered By: Alaina Arce on 08-17-2021 Hematocrit (Bld) [Volume fraction] 42.6 % 34.0-46.4 [facility] Laboratory - Hematology and Cell countsOrdered By: Alaina Arce on 08-17-2021 Nucleated RBC/100 WBC (Bld) [Ratio] 0.0 % 0-0.5 [facility] Lymphocytes Auto (Bld) [#/Vo l]Ordered By: Alaina Arce on 08-17-2021 Lymphocytes (Bld) [#/Vol] 2.4 10*3/uL 1.00-4.8 [facility] Lymphocytes/100 WBC Auto (Bl d)Ordered By: Alaina Arce on 08-17-2021 Lymphocytes/100 WBC (Bld) 23.7 % . [facility] MCH Auto (RBC) [Entitic mass ]Ordered By: Alaina Arce on 08-17-2021 MCH (RBC) [Entitic mass] 31.0 pg 24.7-34.3 [facility] MCHC Auto (RBC) [Mass/Vol]Or dered By: Alaina Arce on 08-17-2021 MCHC (RBC) [Mass/Vol] 35.3 g/dL 32.0-35.0 [facility] MCV Auto (RBC) [Entitic vol] Ordered By: Alaina Arce on 08-17-2021 MCV (RBC) [Entitic vol] 87.8 fL 80-100 [facility] Monocytes Auto (Bld) [#/Vol] Ordered By: Alaina Arce on 08-17-2021 Monocytes (Bld) [#/Vol] 1.0 10*3/uL 0.0-0.8 [facility] Monocytes/100 WBC Auto (Bld) Ordered By: Alaina Arce on 08-17-2021 Monocytes/100 WBC (Bld) 10.2 % . [facility] Neutrophils Auto (Bld) [#/Vo l]Ordered By: Alaina Arce on 08-17-2021 Neutrophils (Bld) [#/Vol] 6.3 10*3/uL 1.8-7.7 [facility] Neutrophils/100 WBC Auto (Bl d)Ordered By: Alaina Arce on 08-17-2021 Neutrophils/100 WBC (Bld) 63.6 % . [facility] No Panel InformationOrdered By: Alaina Arce on 08-17-2021 Estimated GFR () 52 mL/Min [facility] Comment on above: GFR estimated refere nce range: According to KDOQI guidelines, <60 ml/min/1.73m2 is sufficient to diagnose a patient with chronic kidney disease. Pharmacy Creatinine Clearance (Chem 47.54 [facility] Platelet mean volume Auto (B ld) [Entitic vol]Ordered By: Alaina Arce on 08-17-2021 Platelet mean volume (Bld) [Entitic vol] 8.5 fL 6.3-10.7 [facility] Platelets Auto (Bld) [#/Vol] Ordered By: Alaina Arce on 08-17-2021 Platelets (Bld) [#/Vol] 241 10*3/uL 150-450 [facility] RBC Auto (Bld) [#/Vol]Ordere d By: Alaina Arce on 08-17-2021 RBC (Bld) [#/Vol] 4.85 10*6/uL 3.60-5.00 [facility] Serum or plasma calcium teagan urement (mass/volume)Ordered By: Alaina Arce on 08-17-2021 Calcium [Mass/Vol] 8.9 mg/dL 8.2-10.2 [facility] Serum or plasma chloride sophia surement (moles/volume)Ordered By: Alaina Arce on 08-17-2021 Chloride [Moles/Vol] 101 mmol/L 95-114 [facility] Serum or plasma glucose teagan urement (mass/volume)Ordered By: Alaina Arce on 08-17-2021 Glucose [Mass/Vol] 132 mg/dL 70-100 [facility] Comment on above: ADA recommended refe rence range Random Glucose Reference Range is dependent on time and content of last meal. Glucose of more than 200 mg/dL in a nonstressed, ambulatory subject supports the diagnosis of Diabetes Mellitus. Serum or plasma potassium me asurement (moles/volume)Ordered By: Alaina Arce on 08-17-2021 Potassium [Moles/Vol] 2.9 mmol/L 3.5-5.1 [facility] Comment on above: Results called at 0721 on 08/17/21 Serum or plasma sodium measu rement (moles/volume)Ordered By: Alaina Arce on 08-17-2021 Sodium [Moles/Vol] 137 mmol/L 136-146 [facility] Serum or plasma total carbon dioxide measurement (moles/volume)Ordered By: Alaina Arce on 08-17-2021 CO2 [Moles/Vol] 25.3 mmol/L 22.0-30.0 [facility] Serum or plasma urea nitroge n measurement (mass/volume)Ordered By: Alaina Arce on 08-17-2021 Urea nitrogen [Mass/Vol] 17 mg/dL 9- [facility] Albumin [Mass/volume] in Ser um or PlasmaOrdered By: Alaina Arce on 08-16-2021 Albumin [Mass/Vol] 3.1 g/dL 3.2-5.5 [facility] Globulin Calc (S) [Mass/Vol] Ordered By: Alaina Arce on 08-16-2021 Globulin (S) [Mass/Vol] 3.0 g/dL [facility] Protein [Mass/volume] in Ser um or PlasmaOrdered By: Alaina Arce on 08-16-2021 Protein [Mass/Vol] 6.1 g/dL 6.1-7.9 [facility] Serum or plasma alanine spencer otransferase measurement without P-5'-P (enzymatic activiOrdered By: Alaina Arce on 08-16-2021 ALT No additional P-5'-P [Catalytic activity/Vol] 57 U/L 10-60 [facility] Serum or plasma albumin/glob ulin mass ratioOrdered By: Alaina Arce on 08-16-2021 Albumin/Globulin [Mass ratio] 1.0 {ratio} [facility] Serum or plasma alkaline calvin sphatase measurement (enzymatic activity/volume)Ordered By: Alaina Arce on 08-16-2021 ALP [Catalytic activity/Vol] 76 U/L 32-92 [facility] Serum or plasma aspartate am inotransferase measurement (enzymatic activity/volume)Ordered By: Alaina Arce on 08-16-2021 AST [Catalytic activity/Vol] 47 U/L 10-42 [facility] Serum or plasma total biliru bin measurement (mass/volume)Ordered By: Alaina Arce on 08-16-2021 Bilirubin [Mass/Vol] 1.5 mg/dL 0.3-1.2 [facility] Comment on above: Samples from patient s who have taken Naproxen have shown spurious elevation in Total Bilirubin levels. A metabolite of Naproxen, O-desmethylnaproxen, has been shown to interfere with the Jendrmikhailik-Joseph method for measuring Total Bilirubin. Amphetamine Screen Ql (U)Ord ered By: Alaina Arce on 08-15-2021 Amphetamines Ql (U) Negative Negative [facility] Antithrombin measurement (un its/volume) in platelet poor plasma by chromogenic methodOrdered By: Janet Hamm on 08-15-2021 Antithrombin Chromogenic method Qn (PPP) 113 % 75-135 [facility] Comment on above: Direct Xa inhibitor anticoagulants such as rivaroxaban, apixaban and edoxaban will lead to spuriously elevated antithrombin activity levels possibly masking a deficiency. Barbiturates [Presence] in U rineOrdered By: Alaina Arce on 08-15-2021 Barbiturates Ql (U) Negative Negative [facility] Benzodiazepines [Presence] i n UrineOrdered By: Alaina Arce on 08-15-2021 Benzodiazepines Ql (U) Negative Negative [facility] Beta 2 glycoprotein 1 IgG Ab [Units/volume] in SerumOrdered By: Janet Hamm on 08-15-2021 Beta 2 glycoprotein 1 IgG Qn (S) <9 0-20 [facility] Comment on above: Result Units: GPI Ig [...] glycoprotein 1 IgM Qn (S) <9 0-32 [facility] Comment on above: Result Units: GPI Ig [...] 08-15-2021 Cannabinoids Screen Ql (U) Negative Negative [facility] Comment on above: These are unconfirme d results and should not be used for legal purposes. Drug Cut-Off Concentration: AMPH 1000 ng/mL DRAKE 200 ng/mL UNIQUE 200 ng/mL COCM 300 ng/mL OP 300 ng/mL PCP 25 ng/mL THC 20 ng/mL Cardiolipin IgG Ab [Units/vo lume] in Serum by ImmunoassayOrdered By: Janet Hamm on 08-15-2021 Cardiolipin IgG IA Qn (S) <9 GPL U/mL 0-14 [facility] Comment on above: Negative: <15 Indeterminate: 15 - 20 Low-Med Positive: >20 - 80 High Positive: >80 Cardiolipin IgM Ab [Units/vo lume] in Serum by ImmunoassayOrdered By: Janet Hamm on 08-15-2021 Cardiolipin IgM IA Qn (S) 17 MPL U/mL 0-12 [facility] Comment on above: Negative: <13 Indeterminate: 13 - 20 Low-Med Positive: >20 - 80 High Positive: >80 Cholesterol [Mass/volume] in Serum or PlasmaOrdered By: Janet Hamm on 08-15-2021 Cholesterol [Mass/Vol] 259 mg/dL 140-200 [facility] Comment on above: Chol less than 200 m g/dl low risk Chol 201-239 mg/dl borderline risk Chol 240 mg/dl and greater high risk Cholesterol in LDL Calc [Mas s/Vol]Ordered By: Janet Hamm on 08-15-2021 Cholesterol in LDL [Mass/Vol] 176 mg/dL 0-100 [facility] Comment on above: LDL ATP III CLASSIFI CATION LDL less than 100 mg/dL Optimal LDL 100-129 mg/dL Near or above optimal LDL 130-159 mg/dL Borderline high LDL 160-189 mg/dL High LDL greater than 189 mg/dL Very high Cholesterol in VLDL Calc [Ma ss/Vol]Ordered By: Janet Hamm on 08-15-2021 Cholesterol in VLDL [Mass/Vol] 32 mg/dL [facility] Dilute Vinay's viper venom timeOrdered By: Janet Hamm on 08-15-2021 dRVVT Coag (PPP) [Time] 45.5 s 0.0-47.0 [facility] Free protein S measurementOr dered By: Janet Hamm on 08-15-2021 Protein S Free Ag IA Qn (PPP) 134 % 61-136 [facility] Functional protein C measure mentOrdered By: Janet Hamm on 08-15-2021 Protein C actual/normal Chromogenic method (PPP) [Rel catalytic activity/Vol] 158 % 73-180 [facility] Laboratory - Drug toxicology Ordered By: Alaina Arce on 08-15-2021 Opiates Ql (U) Negative Negative [facility] Lupus anticoagulant [Interpr etation] in Platelet poor plasmaOrdered By: Janet Hamm on 08-15-2021 Lupus anticoagulant (PPP) [Interp] Comment: . [facility] Comment on above: No lupus anticoagula nt was detected. No Panel InformationOrdered By: Janet Hamm on 08-15-2021 Activated Protein C Resist Confirm 2.6 ratio 2.2-3.5 [facility] Comment on above: The APCR result may be falsely increased (masking an abnormal, low APCR result) in patients on direct Xa inhibitor (e.g., rivaroxaban, apixaban, edoxaban) or a direct thrombin inhibitor (e.g., dabigatran) anticoagulant therapy due to assay interference by these drugs. Phencyclidine Screen Ql (U)O rdered By: Alaina Arce on 08-15-2021 Phencyclidine Ql (U) Negative Negative [facility] Plasminogen measurementOrder ed By: Janet Hamm on 08-15-2021 Plasminogen actual/normal Chromogenic method (PPP) [Rel catalytic activity/Vol] 119 % 70-150 [facility] Platelet poor plasma ratio o f lupus anticoagulant-sensitive activated partial thromboOrdered By: Janet Hamm on 08-15-2021 aPTT.lupus sensitive.excess phospholipid actual/normal Coag (PPP) [Relative time] 38.6 sec 0.0-47.6 [facility] Prothrombin gene [id number] mut ation detectionOrdered By: Janet Hamm on 08-15-2021 F2 gene targeted mutation analysis Molgen Nom (Bld/Tiss) See comment . [facility] Comment on above: Result: c.*97G>A - N [...] the F2 gene and a c.1601G>A (p. Zpy991Geh) variant in the F5 gene (commonly referred to as Factor V Leiden) have an approximately 20- fold increased risk for venous thromboembolism. Risks are likely to be even higher in more complex genotype combinations involving the F2 c.*97G>A variant and Factor V Leiden (PMID: 99717697). Additional risk factors include but are not [...] health care providers to discuss results at [phone] ([phone]). Test Details: Variant analyzed: c.*97G>A, previously referred to as [id number] Methods/Limitations: DNA analysis of the F2 gene [...] developed and its performance characteristics determined by [facility]. It has not been cleared or approved by the Food and Drug Administration. References: Taj Church, Briana MCLAUGHLIN, Gilberto R, Bogdan WW, Yanick JH; ACMG Professional Practice and Guidelines Committee. Addendum: [employer] consensus statement on factor V Leiden mutation testing. Zoë Med. 2020Apr 22. doi: 10.1038/j08788-888-03139-d. PMID: 58505491. Edgardo KRISHNA. Prothrombin Thrombophilia. 2005Sep 11 [Updated 2020Mar 24]. In: Rober MP, Thaddeus HH, Iman RA, et al., editors. Aliyah(R) [Internet]. [place] ([place]): [facility]; 1261-4673. Available from: https://www.ncbi.nlm.nih.gov/books/KDM2378/ Ariel S, Briana MCLAUGHLIN, Aakash X, Grady B, Vidal EB, Siobhan P, Anny CS; ACMG Laboratory X Ray Technologist Committee. Venous thromboembolism laboratory testing (factor V Leiden and factor II c.*97G>A), 2018 update: a technical standard of the [employer] and [employer] (ACMG). Zoë Med. 2018 Jan;20(12):9424-7936. doi: 10.1038/j80061-569-1598-b. Ep2017Nov 22. PMID: 11992669. Evon Negron, PhD, FACMG Otis Guthrie, PhD, FACMG Rehan Goodson, PhD, FACMG Nick Bergeron, PhD, FACMG Isela Pagan, PhD, FACMG Vee Mera, PhD, FACMG Gregoria Carrasco, PhD, FACMG Performed at: [address] [id number] [employer] Liner Helper: Harshad Acosta PhD, Phone: [phone] Performed at: [address] [id number] [employer] Liner Helper: Veronica Ring MD, Phone: [phone] Performed at: [facility] - [facility] [address] [facility], [place], [place] [id number] [employer]le Liner Helper: Becky Cabezas [facility], Phone: [phone] Serum or plasma high density lipoprotein (HDL) cholesterol measurementOrdered By: Janet Hamm on 08-15-2021 Cholesterol in HDL [Mass/Vol] 50 mg/dL 35-85 [facility] Comment on above: HDL CHOL ATP-III CLA SSIFICATION Cardiovascular Risk HDL > or equal to 60 mg/dL LOW HDL < 40 mg/dL HIGH Serum or plasma homocysteine measurement (moles/volume)Ordered By: Janet Hamm on 08-15-2021 Homocysteine [Moles/Vol] 12.8 umol/L 0.0-14.5 [facility] Serum or plasma total choles terol/high density lipoprotein (HDL) cholesterol mass ratOrdered By: Janet Hamm on 08-15-2021 Cholesterol.total/Chol esterol in HDL [Mass ratio] 5.2 {ratio} <5.0 [facility] Triglyceride [Mass/volume] i n Serum or PlasmaOrdered By: Janet Hamm on 08-15-2021 Triglyceride [Mass/Vol] 164 mg/dL 35-149 [facility] Comment on above: TRIG ATP III CLASSIF ICATION TRIG less than 150 mg/dL Normal TRIG 150-199 mg/dL Borderline high TRIG 200-500 mg/dL High TRIG greater than 500 mg/dL Very high Standard traceable to the Center for Disease Conrtrol and Prevention (CDC) test method. Urine cocaine detectionOrder ed By: Alaina Arce on 08-15-2021 Cocaine Ql (U) Negative Negative [facility] Urine culture routineOrdered By: Alaina Arce on 08-15-2021 Bacteria identified Cx Nom (U) 2 Days [facility] aPTT.lupus sensitive (LA scr een)Ordered By: Janet Hamm on 08-15-2021 aPTT.lupus sensitive Coag (PPP) [Time] 35.2 sec 0.0-51.9 [facility] aPTT.lupus sensitive/aPTT.sheryl pus sensitive W excess phospholipid (screen to confirm raOrdered By: Janet Hamm on 08-15-2021 aPTT.lupus sensitive/aPTT.lupus sensitive W excess phospholipid Coag (PPP) [Ratio] 0.94 Ratio 0.00-1.34 [facility] Activated partial thrombopla stin time (aPTT) in platelet poor plasma by coagulation aOrdered By: Bong Bansal on 08-14-2021 aPTT Coag (PPP) [Time] 28.2 s 25.1-36.5 [facility] Bacterial blood cultureOrder ed By: Bong Bansal on 08-14-2021 Bacteria identified Cx Nom (Bld) NO GROWTH 5 DAYS [facility] Creatinine [Mass/volume] in UrineOrdered By: Alaina Arce on 08-14-2021 Creatinine (U) [Mass/Vol] 74.6 mg/dL [facility] Comment on above: No reference range e stablished Glucose Glucometer (BldC) [M ass/Vol]Ordered By: Alaina Arce on 08-14-2021 Glucose [Mass/Vol] 102 mg/dL [facility] Comment on above: Random Glucose Refer ence Range is dependent on time and content of last meal. Glucose of more than 200 mg/dL in a nonstressed, ambulatory subject supports the diagnosis of Diabetes Mellitus. Glucose mean value [Mass/vol ume] in Blood Estimated from glycated hemoglobinOrdered By: Janet Hamm on 08-14-2021 Average glucose Estimated from glycated hemoglobin (Bld) [Mass/Vol] 126 mg/dL [facility] Hemoglobin A1c percentageOrd ered By: Janet Hamm on 08-14-2021 HbA1c (Bld) [Mass fraction] 6.0 % 4.3-5.6 [facility] Comment on above: Increased risk for d iabetes: 5.7 - 6.4 diabetes: >6.4 glycemic control for adults with diabetes: <7.0 Laboratory - Chemistry and C hemistry - challengeOrdered By: Alaina Arce on 08-14-2021 Magnesium [Mass/Vol] 2.3 mg/dL 1.6-2.6 [facility] Laboratory - CoagulationOrde red By: Bong Bansal on 08-14-2021 PT Coag (PPP) [Time] 11.8 s 9.0-12.9 [facility] Platelet poor plasma interna tional normalized ratio (INR) by coagulation assay (relatOrdered By: Bong Bansal on 08-14-2021 INR Coag (PPP) [Relative time] 1.1 {INR} [facility] Comment on above: INR Therapeutic Rang e [...] 08-14-2021 Protein (U) [Mass/Vol] 100 mg/dL 0-9 [facility] Renin activityOrdered By: Emma Arce on 08-14-2021 Renin (P) [Catalytic activity/Vol] 27.141 ng/mL/hr 0.167-5.38 0 [facility] Comment on above: This test was develo ped and its performance characteristics determined by [employer]. It has not been cleared or approved by the Food and Drug Administration. Performed at: [facility] [employer] [id number] [employer] Liner Helper: Veronica Ring MD, Phone: [phone] Serum or plasma aldosterone measurement (mass/volume)Ordered By: Alaina Arce on 08-14-2021 Aldosterone [Mass/Vol] 7.8 ng/dL 0.0-30.0 [facility] Comment on above: This test was develo ped and its performance characteristics determined by [employer]. It has not been cleared or approved by the Food and Drug Administration. Performed at: [facility] [employer] [id number] Ladle Liner Helper: Veronica Ring MD, Phone: [phone] Urine protein/creatinine rat ioOrdered By: Alaina Arce on 08-14-2021 Protein/Creatinine (U) [Ratio] 1340 mg/g{Cre} 0-200 [facility] Urine sodium measurement (mo les/volume)Ordered By: Alaina Arce on 08-14-2021 Sodium (U) [Moles/Vol] 54.0 mmol/L F [facility] Comment on above: No reference range e stablished AMYLASEon 08-13-2021 Amylase [Catalytic activity/Vol] 80 U/L Normal 25-115 [facility] Comment on above: Performed By: #### A MY, CMP, LIPA #### Laboratory [address] [place] [address] Dr. Moreno Amato Automated erythrocytes count in urine sediment (number/area)Ordered By: Alaina Arce on 08-13-2021 RBC Auto (Urine sed) [#/Area] 5-9 [HPF] 0-4 [facility] Automated leukocytes count i n urine sediment (number/area)Ordered By: Alaina Arce on 08-13-2021 WBC Auto (Urine sed) [#/Area] 20-49 [HPF] 0-4 [facility] Bilirubin Test strip Ql (U)O rdered By: Alaina Arce on 08-13-2021 Bilirubin Ql (U) Negative Negative [facility] CBC AUTO DIFFon 08-13-2021 BASO # 0.1 103/ul Normal 0.0-0.1 [facility] Comment on above: Performed By: #### C BC #### Laboratory [address] [place] [address] Dr. Moreno Amato Basophils/100 WBC (Bld) 0.6 % Normal 0.2-2.0 [facility] Comment on above: Performed By: #### C BC #### Laboratory [address] [address] [address] Moreno Amato EO # 0.1 103/ul Normal 0.0-0.7 [facility] Comment on above: Performed By: #### C BC #### Laboratory [address] [place] [address] Dr. Moreno Amato Eosinophils/100 WBC (Bld) 0.6 % Critically low 0.9-7.0 [facility] Comment on above: Performed By: #### C BC #### Laboratory [address] [place] [address] Dr. Moreno Amato Erythrocyte distribution width (RBC) [Ratio] 11.9 % Normal 11.0-15.0 [facility] Comment on above: Performed By: #### C BC #### Laboratory [address] [place] [address] Dr. Moreno Amato Hematocrit (Bld) [Volume fraction] 51.0 % Critically high 36.0-48.0 [facility] Comment on above: Performed By: #### C BC #### Laboratory [address] [place] [address] Dr. Moreno Amato Hemoglobin (Bld) [Mass/Vol] 18.2 g/dL Critically high 12.0-16.0 [facility] Comment on above: Performed By: #### C BC #### Laboratory [address] [place] [address] Dr. Moreno Amato IG # 0.04 10e3/ul Critically high 0.00-0.03 [facility] Comment on above: Performed By: #### C BC #### Laboratory [address] [place] [address] Dr. Moreno Amato IG % 0.3 % Normal 0.0-0.5 [facility] Comment on above: Performed By: #### C BC #### Laboratory [address] [place] [address] Dr. Moreno Amato LYMPH # 2.2 103/ul Normal 1.2-3.8 [facility] Comment on above: Performed By: #### C BC #### Laboratory [address] [place] [address] Dr. Moreno Amato Lymphocytes/100 WBC (Bld) 17.1 % Critically low 20.5-60.0 [facility] Comment on above: Performed By: #### C BC #### Laboratory [address] [place] [address] Dr. Moreno Amato MANUAL DIFF REQ NO Normal [facility] Comment on above: Performed By: #### C BC #### Laboratory [address] [address] [address] Moreno Amato MCH (RBC) [Entitic mass] 30.4 pg Normal 26.7-34.0 [facility] Comment on above: Performed By: #### C BC #### Laboratory [address] [place] [address] Dr. Moreno mAato MCHC (RBC) [Mass/Vol] 35.7 g/dL Critically high 29.9-35.2 [facility] Comment on above: Performed By: #### C BC #### Laboratory [address] [place] [address] Dr. Moreno Amato MCV (RBC) [Entitic vol] 85.1 fL Normal 81.0-99.0 [facility] Comment on above: Performed By: #### C BC #### Laboratory [address] [place] [address] Dr. Moreno Amato MONO # 1.3 103/ul Critically high 0.3-0.8 [facility] Comment on above: Performed By: #### C BC #### Laboratory [address] [place] [address] Dr. Moreno Amato Monocytes/100 WBC (Bld) 10.0 % Normal 1.7-12.0 [facility] Comment on above: Performed By: #### C BC #### Laboratory [address] [place] [address] Dr. Moreno Amato NEUT # 9.3 103/ul Critically high 1.4-6.5 [facility] Comment on above: Performed By: #### C BC #### Laboratory [address] [place] [address] Dr. Moreno Amato Neutrophils/100 WBC (Bld) 71.4 % Normal 43.0-75.0 The Comment on above: Performed By: #### C BC #### Laboratory [address] [place] [address] Dr. Moreno Amato Platelet mean volume (Bld) [Entitic vol] 9.8 fL Normal 9.5-13.5 The Comment on above: Performed By: #### C BC #### Laboratory [address] [place], [place] [address] Dr. Moreno Amato PLT 242 103/ul Normal 150-450 The Comment on above: Performed By: #### C BC #### Laboratory [address] [place], [place] [address] Dr. Moreno Amato RBC 5.99 106/ul Critically high 4.20-5.40 [facility] Comment on above: Performed By: #### C BC #### Laboratory [address] [place], [place] [address] Dr. Moreno Amato WBC 13.0 103/ul Critically high 4.0-11.0 [facility] Comment on above: Performed By: #### C BC #### Laboratory [address] [place], [place] [address] ABD/PELVIS WO CONon [...] Vinay MANN Date: 2021-08-13 03:[address] STROKE HEAD WOon 08-14-[address] [...] MAVIS ROSSI Date: 2021-08-13 07:39 Normal The CULTURE URINEon 08-13-2021 CULTURE URINE Culture Observations : LIGHT GROWTH OF MIXED GENITAL ZOE. NO POTENTIAL PATHOGENS SEEN. Normal The Comment on above: Performed By: #### A MY, CMP, LIPA #### Laboratory [address] [address] [address] Moreno Amato Color Auto (U)Ordered By: Emma Arce on 08-13-2021 Color (U) Yellow [facility] Covid-19 PCR (CVDTBH)on 07-20 SARS-CoV-2 (COVID-19) RNA ELISA+probe Ql (Unsp spec) Not detected Normal NOT DETECTED The Comment on above: Result Comment: When diagnostic [...] for this test is supported by the [place] of Health and Human Service's declaration that [...] longer be used). Performed By: #### C VDLIZZIE #### Laboratory [address] [place] [address] Dr. Moerno Amato ER URINE PROFILEon 2 Bilirubin Ql (U) Negative Normal NEGATIVE [facility] Comment on above: Performed By: #### SULAIMAN FRANCISCORO #### Laboratory [address] [place] [address] Dr. Moreno Amato Clarity (U) CLEAR Normal CLEAR [facility] Comment on above: Performed By: #### SULAIMAN FRANCISCORO #### Laboratory [address] [place] [address] Dr. Moreno Amato Color (U) LT. YELLOW Normal YELLOW The Comment on above: Performed By: #### SULAIMAN FRANCISCORO #### Laboratory [address] [place] [address] Dr. Moreno Amato ERUAHD A micrscopic examina tion will be performed if indicated. Normal The Comment on above: Performed By: #### SULAIMAN FRANCISCORO #### Laboratory [address] [place] [address] Dr. Moreno Amato Glucose Ql (U) Negative Normal NEGATIVE [facility] Comment on above: Performed By: #### Rupal ALAN UMICRO #### Laboratory [address] [place] [address] Dr. Moreno Amato Hemoglobin Ql (U) MODERATE Abnormal NEGATIVE [facility] Comment on above: Performed By: #### Rupal ALAN UMICRO #### Laboratory [address] [place] [address] Dr. Moreno Amato Ketones Ql (U) Negative Normal NEGATIVE [facility] Comment on above: Performed By: #### Rupal ALAN, UMICRO #### Laboratory [address] [place] [address] Dr. Moreno Amato LEUKOCYTES SMALL Abnormal NEGATIVE The Comment on above: Performed By: #### Rupal ALAN UMICRO #### Laboratory [address] [place] [address] Dr. Moreno Amato Nitrite Ql (U) Positive Abnormal NEGATIVE [facility] Comment on above: Performed By: #### Rupal ALAN UMICRO #### Laboratory [address] [place] [address] Dr. Moreno Amato pH (U) 6.0 [pH] Normal 5-9 [facility] Comment on above: Performed By: #### Rupal ALAN UMICRO #### Laboratory [address] [place] [address] Dr. Moreno Amato SPEC GRAVITY 1.020 Normal 1.005-<=1. 025 [facility] Comment on above: Performed By: #### Rupal ALNA UMICRO #### Laboratory [address] [place] [address] Dr. Moreno Amato UA PROTEIN >300 Abnormal NEGATIVE/ TRACE The Comment on above: Performed By: #### Rupal ALAN UMICRO #### Laboratory [address] [place] [address] Dr. Moreno Amato UR MICRO IND INDICATED Normal The Comment on above: Performed By: #### Rupal ALAN UMICRO #### Laboratory [address] [place] [address] Dr. Moreno Amato Urobilinogen Qn (U) 0.2 {[place]'U}/dL Normal 0.2 - 1. 0 [facility] Comment on above: Performed By: #### NAOMI FRANCISCO #### Laboratory [address] [address] [address] Moreno Amato Ketones Auto test strip (U) [Mass/Vol]Ordered By: Alaina Arce on 08-13-2021 Ketones (U) [Mass/Vol] Negative Negative [facility] LACTATE/LACTIC ACIDon 2021 Lactate [Moles/Vol] 1.1 mmol/L Normal 0.4-1.9 [facility] Comment on above: Performed By: #### A MY, CMP, LIPA #### Laboratory [address] [address] [address] Moreno Amato LIPASEon 08-13-2021 Lipase [Catalytic activity/Vol] 524.0 U/L Critically high 73.0-393.0 [facility] [facility] Comment on above: Performed By: #### A MY, CMP, LIPA #### Laboratory [address] [address] [address] Moreno Amato Laboratory - Chemistry and C hemistry - challengeOrdered By: Alaina Arce on 08-13-2021 Lactate [Moles/Vol] 1.6 mmol/L 0.5-2.2 [facility] Laboratory - UrinalysisOrder ed By: Alaina Arce on 08-13-2021 Hyaline casts LM Ql (Urine sed) 9-19 [LPF] 0-8 [facility] Nitrite Test strip Ql (U)Ord ered By: Alaina Arce on 08-13-2021 Nitrite Ql (U) Positive Negative [facility] POINT OF CARE GLUCOSEon 07-20 Glucose [Mass/Vol] 129 mg/dL Critically high 74-106 [facility] Comment on above: Performed By: #### A MY, CMP, LIPA #### Laboratory [address] [place] [address] Dr. Moreno Amato PROF 14(COMP METB)on 022 Albumin [Mass/Vol] 3.4 g/dL Normal 3.4-5.0 [facility] Comment on above: Performed By: #### A MY, CMP, LIPA #### Laboratory [address] [address] [address] Moreno Amato Albumin/Globulin [Mass ratio] 0.8 {ratio} Normal [facility] Comment on above: Performed By: #### A MY, CMP, LIPA #### Laboratory [address] [address] [address] Moreno Amato ALP [Catalytic activity/Vol] 105 U/L Normal 46-116 [facility] Comment on above: Performed By: #### A MY, CMP, LIPA #### Laboratory [address] [address] [address] Moreno Amato ALT [Catalytic activity/Vol] 22 U/L Normal 14-59 [facility] Comment on above: Performed By: #### A MY, CMP, LIPA #### Laboratory [address] [address] [address] Moreno Amato Anion gap [Moles/Vol] 11.6 mmol/L Normal [facility] Comment on above: Performed By: #### A MY, CMP, LIPA #### Laboratory [address] [address] [address] Moreno Amato AST [Catalytic activity/Vol] 22 U/L Normal 15-37 [facility] Comment on above: Performed By: #### A MY, CMP, LIPA #### Laboratory [address] [address] [address] Moreno Amato Bilirubin [Mass/Vol] 0.7 mg/dL Normal 0.2-1.0 [facility] Comment on above: Performed By: #### A MY, CMP, LIPA #### Laboratory [address] [address] [address] Moreno Amato Calcium [Mass/Vol] 9.6 mg/dL Normal 8.5-10.1 [facility] Comment on above: Performed By: #### A MY, CMP, LIPA #### Laboratory [address] [address] [address] Moreno Amaot Chloride [Moles/Vol] 97 mmol/L Critically low 98-107 [facility] Comment on above: Performed By: #### A MY, CMP, LIPA #### Laboratory [address] [address] [address] Moreno Amato CO2 [Moles/Vol] 31.2 mmol/L Normal 21.0-32.0 [facility] Comment on above: Performed By: #### A MY, CMP, LIPA #### Laboratory [address] [place] [address] Dr. Moreno Amato Creatinine [Mass/Vol] 1.64 mg/dL Critically high 0.55-1.02 [facility] Comment on above: Performed By: #### A MY, CMP, LIPA #### Laboratory [address] [place] [address] Dr. Moreno Amato EGFR-AF [place] 39 mL/min/1.73m2 Critically low >=60 [facility] Comment on above: Performed By: #### A MY, CMP, LIPA #### Laboratory [address] [place] [address] Dr. Moreno Amato EGFR-NON AF [place] 32 mL/min/1.73m2 Critically low >=60 [facility] Comment on above: Performed By: #### A MY, CMP, LIPA #### Laboratory [address] [place] [address] Dr. Moreno Amato Globulin (S) [Mass/Vol] 4.1 g/dL Normal [facility] Comment on above: Performed By: #### A MY, CMP, LIPA #### Laboratory [address] [place] [address] Dr. Moreno Amato Glucose [Mass/Vol] 110 mg/dL Critically high 74-106 [facility] Comment on above: Performed By: #### A MY, CMP, LIPA #### Laboratory [address] [place] [address] Dr. Moreno Amato Potassium [Moles/Vol] 2.8 mmol/L Critically low 3.5-5.1 [facility] Comment on above: Performed By: #### A MY, CMP, LIPA #### Laboratory [address] [address] [address] Moreno Amato Protein [Mass/Vol] 7.5 g/dL Normal 6.4-8.2 [facility] Comment on above: Performed By: #### A MY, CMP, LIPA #### Laboratory [address] [address] [address] Moreno Amato Sodium [Moles/Vol] 137 mmol/L Normal 136-145 [facility] Comment on above: Performed By: #### A MY, CMP, LIPA #### Laboratory [address] [address] [address] Moreno Amato Urea nitrogen [Mass/Vol] 26.0 mg/dL Critically high 7.0-18.0 [facility] Comment on above: Performed By: #### A MY, CMP, LIPA #### Laboratory [address] [address] [address] Moreno Amato Urea nitrogen/Creatinine [Mass ratio] 15.9 mg/mg Normal [facility] Comment on above: Performed By: #### A MY, CMP, LIPA #### Laboratory [address] [address] [address] Moreno Amato Protein Auto test strip (U) [Mass/Vol]Ordered By: Alaina Arce on 08-13-2021 Protein (U) [Mass/Vol] mg/dL Negative [facility] Specific gravity Auto test s trip (U) [Rel density]Ordered By: Alaina Arce on 08-13-2021 Specific gravity (U) [Rel density] 1.017 1.001-1.03 0 [facility] Squamous epithelial cells de tection in urine sediment by light microscopyOrdered By: Alaina Arce on 08-13-2021 Epithelial cells.squamous LM Ql (Urine sed) 3-4 [HPF] 0-2 [facility] TROPONIN, HIGH SENSITIVITYon 08-13-2021 HSTROP 91.0 pg/mL Critically high 4.0-51.3 [facility] Comment on above: Result Comment: CUT- OFF POINTS HAVE BEEN ESTABLISHED BASED ON THE FOURTH UNIVERSAL DEFINITIONS OF MYOCARDIAL INFARCTION. THE UPPER REFERENCE LIMIT (URL) OF TROPONIN, DEFINED THE 99TH PERCENTILE OF cTnI DISTRIBUTION IN A REFERENCE POPULATION, HAS BEEN CONFIRMED THE DECISION THRESHOLD FOR [place] DIAGNOSIS. Performed By: #### A MY, CMP, LIPA #### Laboratory [address] [place] [address] Dr. Moreno Amato HSTROP 109.0 pg/mL Critically high 4.0-51.3 [facility] Comment on above: Result Comment: CUT- OFF POINTS HAVE BEEN ESTABLISHED BASED ON THE FOURTH UNIVERSAL DEFINITIONS OF MYOCARDIAL INFARCTION. THE UPPER REFERENCE LIMIT (URL) OF TROPONIN, DEFINED THE 99TH PERCENTILE OF cTnI DISTRIBUTION IN A REFERENCE POPULATION, HAS BEEN CONFIRMED THE DECISION THRESHOLD FOR [place] DIAGNOSIS. Performed By: #### H STROPN #### Laboratory [address] [place] [address] Dr. Moreno Amato Troponin I.cardiac [Mass/vol ume] in Serum or Plasma by High sensitivity methodOrdered By: Alaina Arce on 08-13-2021 Troponin I.cardiac High sensitivity method [Mass/Vol] 50 pg/mL 0-15 [facility] Comment on above: Critical value result called at 1736 on 08/13/21 URINE MICROSCOPIC ONLYon BACTERIA SMALL Abnormal NONE SEEN The Comment on above: Performed By: #### SULAIMAN FRANCISCORO #### Laboratory [address] [place] [address] Dr. Moreno Amato Bacteria identified Cx Nom (U) INDICATED Normal The Comment on above: Performed By: #### Rupal ALAN UMICRO #### Laboratory [address] [place] [address] Dr. Moreno Amato CAST SEEN Abnormal NONE SEEN The Comment on above: Performed By: #### Rupal ALAN UMICRO #### Laboratory [address] [place] [address] Dr. Moreno Amato Crystals LM Nom (Urine sed) NONE SEEN Normal NONE SEEN The Comment on above: Performed By: #### E DAYANNA UMICRO #### Laboratory [address] [place] [address] Dr. Moreno Amato Epithelial cells LM Ql (Urine sed) FEW Abnormal NONE SEEN /RARE The Comment on above: Performed By: #### E RUR, UMICRO #### Laboratory [address] [address] [address] Moreno Amato HYALINE CAST FEW Normal The Comment on above: Performed By: #### E RUR, UMICRO #### Laboratory [address] [address] [address] Moreno Amato MUCOUS NONE SEEN Normal NONE SEEN [facility] Comment on above: Performed By: #### E RUR, UMICRO #### Laboratory [address] [address] [address] Moreno Amato RBC 2-5 Abnormal 0-2 [facility] Comment on above: Performed By: #### E RUR, UMICRO #### Laboratory [address] [place] [address] Dr. Moreno Amato WBC 20-50 Abnormal NONE SEEN [facility] Comment on above: Performed By: #### E RUR, UMICRO #### Laboratory [address] [address] [address] Moreno Amato Urine bacteria detection by automated methodOrdered By: Alaina Arce on 08-13-2021 Bacteria Auto Ql (U) None seen None Seen [facility] Urine clarity by refractomet ry automatedOrdered By: Alaina Arce on 08-13-2021 Clarity Refractometry automated (U) Cloudy Clear [facility] Urine culture routineOrdered By: Alaina Arce on 08-13-2021 Bacteria identified Cx Nom (U) 2 Days [facility] Urine glucose measurement by automated test strip (mass/volume)Ordered By: Alaina Arce on 08-13-2021 Glucose Auto test strip (U) [Mass/Vol] Normal mg/dL Normal [facility] Urine hemoglobin detection b y automated test stripOrdered By: Alaina Arce on 08-13-2021 Hemoglobin Auto test strip Ql (U) 1+ Negative [facility] Urine leukocyte esterase det ection by automated test stripOrdered By: Alaina Arce on 08-13-2021 Leukocyte esterase Auto test strip Ql (U) 1+ Negative [facility] Urobilinogen Auto test strip (U) [Mass/Vol]Ordered By: Alaina Bourgeoisuja on 08-13-2021 Urobilinogen (U) [Mass/Vol] Normal mg/dL Normal [facility] XR CHEST 1 Von 08-13-2021 XR CHEST [...] by: Vinay MANN Date: 2021-08-13 06:28 Normal [facility] pH Auto test strip (U)Ordere d By: Alaina Yazmin on 08-13-2021 pH (U) 5.5 [pH] 5.0-9.0 [facility] KYARA DIGITAL SCREEN SELF REFERRAL W OR WO CAD BILATERALon 12-16-2020 [facility] KYARA DIGITAL SCREEN SELF REFERRAL [...] to the patient regarding the results. [employer] recommends annual mammograms for women 40 years and older. Interpreted by: Uvaldo Read Signed by: Uvaldo Read 12/16/20 Final result Normal [facility] Vital Signs Date Time Vital Sign Value Performing Clinician Facility 02-14-2023 09:56-0500 Inhaled oxygen flow rate 1 L/min MD Shaikh Thompson Work Phone: [facility] 02-14-2023 08:00-0500 Body temperature 97.7 [degF] MD Shaikh Thompson Work Phone: [facility] 02-14-2023 08:00-0500 Diastolic blood pressure 69 mm[Hg] MD Shaikh Thompson Work Phone: [facility] 02-14-2023 08:00-0500 Heart rate 78 /min MD Shaikh Thompson Work Phone: [facility] 02-14-2023 08:00-0500 Respiratory rate 20 /min MD Shaikh Thompson Work Phone: [facility] 02-14-2023 08:00-0500 SaO2% (BldA) [Mass fraction] 95 % MD Shaikh Thompson Work Phone: [facility] 02-14-2023 08:00-0500 Systolic blood pressure 118 mm[Hg] MD Shaikh Thompson Work Phone: [facility] 02-14-2023 05:51-0500 Body weight 69.9 kg MD Shaikh Thompson Work Phone: [facility] 02-13-2023 12:53-0500 Body height 157.48 cm MD Shaikh Thompson Work Phone: [facility] 02-10-2023 17:00-0500 Heart rate 85 /min Gabby De Oliveira [facility] 02-10-2023 16:38-0500 Diastolic blood pressure 80 mm[Hg] [facility] 02-10-2023 16:38-0500 Heart rate 80 /min [facility] 02-10-2023 16:38-0500 Mean blood pressure 99 mm[Hg] [facility] 02-10-2023 16:38-0500 Respiratory rate 18 /min [facility] 02-10-2023 16:38-0500 SaO2% (BldA) [Mass fraction] 95 % [facility] 02-10-2023 16:38-0500 Systolic blood pressure 138 mm[Hg] [facility] 02-10-2023 15:40-0500 Diastolic blood pressure 92 mm[Hg] [facility] 02-10-2023 15:40-0500 Heart rate 90 /min [facility] 02-10-2023 15:40-0500 Mean blood pressure 105 mm[Hg] [facility] 02-10-2023 15:40-0500 Respiratory rate 20 /min [facility] 02-10-2023 15:40-0500 SaO2% (BldA) [Mass fraction] 94 % [facility] 02-10-2023 15:40-0500 Systolic blood pressure 132 mm[Hg] [facility] 02-10-2023 14:42-0500 Body temperature 98.24 [degF] [facility] 02-10-2023 14:42-0500 Heart rate 93 /min [facility] 02-10-2023 14:42-0500 Respiratory rate 24 /min [facility] 02-10-2023 14:00-0500 Blood Pressure Location Jaxson Johnson [facility] 02-10-2023 14:00-0500 Body temperature 96.8 [degF] Jaxson Johnson [facility] 02-10-2023 14:00-0500 Diastolic blood pressure 90 mm[Hg] Jaxson Johnson [facility] 02-10-2023 14:00-0500 Heart rate 88 /min Jaxson Johnson [facility] 02-10-2023 14:00-0500 SaO2% (BldA) [Mass fraction] 92 % Jaxson Johnson [facility] 02-10-2023 14:00-0500 Systolic blood pressure 140 mm[Hg] Jaxson Johnson [facility] 10-15-2022 17:36-0400 Blood Pressure Location Damion Cheek [facility] 10-15-2022 17:36-0400 Body temperature 97.34 [degF] Damion Cheek [facility] 10-15-2022 17:36-0400 Diastolic blood pressure 76 mm[Hg] Damion Cheek [facility] 10-15-2022 17:36-0400 Heart rate 60 /min Damion Cheek [facility] 10-15-2022 17:36-0400 SaO2% (BldA) [Mass fraction] 96 % Damion Cheek [facility] 10-15-2022 17:36-0400 Systolic blood pressure 122 mm[Hg] Damion Cheek [facility] 10-09-2022 14:24-0400 Body height 157.5 cm Gurmeet Ojeda MD Work Phone: [facility] 10-09-2022 14:24-0400 Body temperature 97.5 [degF] Gurmeet Ojeda MD Work Phone: [facility] 10-09-2022 14:24-0400 Body weight 71.26 kg Gurmeet Ojeda MD Work Phone: [facility] 10-09-2022 14:24-0400 Diastolic blood pressure 60 mm[Hg] Gurmeet Ojeda MD Work Phone: [facility] 10-09-2022 14:24-0400 Heart rate 60 /min Gurmeet Ojeda MD Work Phone: [facility] 10-09-2022 14:24-0400 Systolic blood pressure 91 mm[Hg] Gurmeet Ojeda MD Work Phone: [facility] 08-09-2022 14:56-0400 Body height 157.5 cm Gurmeet Ojeda MD Work Phone: [facility] 08-09-2022 14:56-0400 Body temperature 97.7 [degF] Gurmeet Ojeda MD Work Phone: [facility] 08-09-2022 14:56-0400 Body weight 72.53 kg Gurmeet Ojeda MD Work Phone: [facility] 08-09-2022 14:56-0400 Diastolic blood pressure 64 mm[Hg] Gurmeet Ojeda MD Work Phone: [facility] 08-09-2022 14:56-0400 Heart rate 65 /min Gurmeet Ojeda MD Work Phone: [facility] 08-09-2022 14:56-0400 Systolic blood pressure 98 mm[Hg] Gurmeet Ojeda MD Work Phone: [facility] 06-14-2022 12:57-0400 Blood Pressure Location Jamie BILLS [facility] 06-14-2022 12:57-0400 Diastolic blood pressure 74 mm[Hg] Ayala SALAM [facility] 06-14-2022 12:57-0400 Heart rate 80 /min Ayala SALAM [facility] 06-14-2022 12:57-0400 Respiratory rate 16 /min Ayala SALAM [facility] 06-14-2022 12:57-0400 Systolic blood pressure 118 mm[Hg] Ayala SALAM [facility] 06-06-2022 10:13-0400 Blood Pressure Location TRUDY NGUYỄN [facility] 06-06-2022 10:13-0400 Diastolic blood pressure 88 mm[Hg] TRUDY NGUYỄN [facility] 06-06-2022 10:13-0400 Heart rate 74 /min TRUDY NGUYỄN [facility] 06-06-2022 10:13-0400 Systolic blood pressure 144 mm[Hg] TRUDY NGUYỄN [facility] 05-23-2022 10:41-0400 Blood Pressure Location TRUDY NGUYỄN [facility] 05-23-2022 10:41-0400 Diastolic blood pressure 85 mm[Hg] TRUDY NGUYỄN [facility] 05-23-2022 10:41-0400 Heart rate 72 /min TRUDY NGUYỄN [facility] 05-23-2022 10:41-0400 Systolic blood pressure 127 mm[Hg] TRUDY NGUYỄN [facility] 04-11-2022 11:01-0500 Blood Pressure Location TRUDY KNOTT [facility] 04-11-2022 11:01-0500 Diastolic blood pressure 88 mm[Hg] TRUDY KNOTT [facility] 04-11-2022 11:01-0500 Heart rate 71 /min TRUDY KNOTT [facility] 04-11-2022 11:01-0500 Systolic blood pressure 146 mm[Hg] TRUDY KNOTT [facility] 03-19-2022 16:35-0500 Body height 163.83 cm Padmini Cecy Other [facility] Other 03-19-2022 16:35-0500 Body mass index (BMI) [Ratio] 27.37 kg/m2 Padmini Cecy Other [facility] Other 03-19-2022 16:35-0500 Body temperature 98.9 [degF] Padmini Cecy Other [facility] Other 03-19-2022 16:35-0500 Body weight 73.48 kg Padmini Cecy Other [facility] Other 03-19-2022 16:35-0500 Respiratory rate 18 /min Padmini Cecy Other [facility] Other 03-19-2022 16:35-0500 SaO2% (BldA) [Mass fraction] 96 % Padmini Sam Other [facility] Other 03-13-2022 10:12-0500 Diastolic blood pressure 59 mm[Hg] MD Shaikh Thompson Work Phone: [facility] 03-13-2022 10:12-0500 Heart rate 77 /min MD Shaikh Thompson Work Phone: [facility] 03-13-2022 10:12-0500 Respiratory rate 18 /min MD Shaikh Thompson Work Phone: [facility] 03-13-2022 10:12-0500 SaO2% (BldA) [Mass fraction] 98 % MD Shaikh Thompson Work Phone: [facility] 03-13-2022 10:12-0500 Systolic blood pressure 93 mm[Hg] MD Shaikh Thompson Work Phone: [facility] 03-13-2022 07:54-0500 Body height 162.56 cm MD Shaikh Thompson Work Phone: [facility] 03-13-2022 07:54-0500 Body temperature 98 [degF] MD Shaikh Thompson Work Phone: [facility] 03-13-2022 07:54-0500 Body weight 73.48 kg MD Shaikh Thompson Work Phone: [facility] 03-12-2022 08:58-0500 Body height 160.02 cm Shaikh Donna Work Phone: [facility] [address] DO Work Phone: 03-12-2022 08:58-0500 Body mass index (BMI) [Ratio] 28.7 kg/m2 Shaikh Donna Work Phone: [facility] [address] DO Work Phone: 03-12-2022 08:58-0500 Body surface area Derived from formula 1.77 m2 Shaikh Jabierwad Work Phone: [facility] [address] DO Work Phone: 03-12-2022 08:58-0500 Body weight 73.48 kg Shaikh Jabierwad Work Phone: [facility] [address] DO Work Phone: 03-12-2022 08:58-0500 Diastolic blood pressure 78 mm[Hg] Shaikh Jabierwad Work Phone: [facility] [address] DO Work Phone: 03-12-2022 08:58-0500 Heart rate 66 /min Shaikh Leoneld Work Phone: [facility] [address] DO Work Phone: 03-12-2022 08:58-0500 Systolic blood pressure 110 mm[Hg] Shaikh Leoneld Work Phone: [facility] DO Work Phone: 01-23-2022 12:00-0500 72 1 Shaikh Leoneld Work Phone: [facility] [address] [place] Work Phone: Comment on above: [id number] 11-09-2021 13:26-0400 Body height 160.02 cm Shaikh Leoneld Work Phone: [facility] [address] DO Work Phone: 11-09-2021 13:26-0400 Body mass index (BMI) [Ratio] 27.83 kg/m2 Shaikh Jabierwad Work Phone: [facility] [address] DO Work Phone: 11-09-2021 13:26-0400 Body surface area Derived from formula 1.75 m2 Dunbar Fawwad Work Phone: [facility] [address] DO Work Phone: 11-09-2021 13:26-0400 Body weight 71.27 kg Shaikh Jabierwad Work Phone: [facility] [address] DO Work Phone: 11-09-2021 13:26-0400 Diastolic blood pressure 82 mm[Hg] Shaikh Jabierwad Work Phone: [facility] [address] DO Work Phone: 11-09-2021 13:26-0400 Heart rate 64 /min Shaikh Jabierwad Work Phone: [facility] [address] DO Work Phone: 11-09-2021 13:26-0400 Systolic blood pressure 128 mm[Hg] Shaikh Jabierwad Work Phone: [facility] [address] DO Work Phone: 09-18-2021 10:26-0400 Diastolic blood pressure 80 mm[Hg] Shaikh Jabierwad Work Phone: [facility] DO Work Phone: 09-18-2021 10:26-0400 Systolic blood pressure 178 mm[Hg] Shaikh Jabierwad Work Phone: [facility] DO Work Phone: 09-18-2021 10:19-0400 Body height 162.56 cm Shaikh Jabierwad Work Phone: [facility] [address] DO Work Phone: 09-18-2021 10:19-0400 Body mass index (BMI) [Ratio] 26.09 kg/m2 Shaikh Jabierwad Work Phone: [facility] [address] DO Work Phone: 09-18-2021 10:19-0400 Body surface area Derived from formula 1.74 m2 Shaikh Donna Work Phone: [facility] [facility] DO Work Phone: 09-18-2021 10:19-0400 Body weight 68.95 kg Shaikh Donna Work Phone: [facility] [facility] DO Work Phone: 09-18-2021 10:19-0400 Diastolic blood pressure 80 mm[Hg] Shaikh Donna Work Phone: [facility] DO Work Phone: 09-18-2021 10:19-0400 Heart rate 60 /min Shaikh Donna Work Phone: [facility] [employer] [address] DO Work Phone: 09-18-2021 10:19-0400 Systolic blood pressure 180 mm[Hg] Shaikh Donna Work Phone: [facility] [employer] [address] DO Work Phone: 08-23-2021 14:00-0400 Body temperature 98.9 [degF] Linn Missler Other [facility] Other 08-23-2021 14:00-0400 Body weight 66.13 kg Linn Missler Other [facility] Other 08-23-2021 14:00-0400 Diastolic blood pressure 87 mm[Hg] Linn Missler Other [facility] Other 08-23-2021 14:00-0400 Respiratory rate 18 /min Linn Missler Other [facility] Other 08-23-2021 14:00-0400 SaO2% (BldA) [Mass fraction] 96 % Linn Byrne Other [facility] Other 08-23-2021 14:00-0400 Systolic blood pressure 137 mm[Hg] Linn Byrne Other [facility] Other 08-17-2021 12:00-0400 Diastolic blood pressure 94 mm[Hg] PHYSICIAN NO [facility] 08-17-2021 12:00-0400 Heart rate 78 /min PHYSICIAN NO [facility] 08-17-2021 12:00-0400 Respiratory rate 18 /min PHYSICIAN NO [facility] 08-17-2021 12:00-0400 SaO2% (BldA) [Mass fraction] 95 % PHYSICIAN NO [facility] 08-17-2021 12:00-0400 Systolic blood pressure 152 mm[Hg] PHYSICIAN NO [facility] 08-17-2021 08:00-0400 Body temperature 97.5 [degF] PHYSICIAN NO [facility] 08-17-2021 05:57-0400 Body weight 75.8 kg PHYSICIAN NO [facility] 08-17-2021 00:44-0400 Inhaled oxygen flow rate 2 L/min PHYSICIAN NO [facility] 08-16-2021 14:43-0400 Body height 162.56 cm PHYSICIAN NO [facility] 08-16-2021 14:43-0400 Body mass index (BMI) [Ratio] 25.6 kg/m2 PHYSICIAN NO [facility] Encounters Encounter Date Encounter Type Care Provider Facility Start: 03-12-2023 End: 03-12-2023 ambulatory Marquez Beal Facility:[facility] Start: 03-12-2023 End: 03-12-2023 ambulatory MD Shaikh Thompson Work Phone: [facility] Work Phone: Start: 03-12-2023 End: 03-12-2023 Patient encounter procedure MD Shaikh Thompson Work Phone: [facility] [place] Work Phone: Start: 02-19-2023 End: 02-19-2023 ambulatory SHAIKH DONNA Not Available Start: 02-12-2023 End: 02-14-2023 Evaluation and management of inpatient Jacques East Facility:[facility] Start: 02-12-2023 End: 02-14-2023 Evaluation and management of inpatient MD Shaikh Thompson Work Phone: [facility] Work Phone: Start: 02-10-2023 End: 02-10-2023 Emergency department patient visit [facility] Start: 02-10-2023 End: 02-11-2023 ambulatory Jaxson Johnson Facility:[facility] Start: 02-10-2023 End: 02-10-2023 Lab Drop off Jaxson Johnson [facility] Start: 02-10-2023 End: 02-10-2023 Emergency department [facility]: 02-10-2023 End: 02-10-2023 Patient encounter procedure Jaxson Johnson [facility] Start: 01-30-2023 End: 01-31-2023 ambulatory TRUDY KNOTT Facility:[facility] Start: 01-30-2023 End: 01-30-2023 Patient encounter procedure TRUDY KNOTT [facility] Start: 10-29-2022 Orders Only Debra naik [...] Patient Question Start: 10-15-2022 End: 10-16-2022 ambulatory SHAIKH DONNA Facility[facility] Start: 10-15-2022 End: 10-15-2022 Lab Drop off Damion Cheek [facility] Start: 10-15-2022 End: 10-15-2022 Patient encounter procedure Damion Cheek [facility] Start: 10-15-2022 Rx Renewal Shaikh Leonelyevgeniy Work Phone: [facility] 600 DO Work Phone: Start: 10-09-2022 End: 10-10-2022 ambulatory Rosie Kimberly DO Work Phone: [facility] [place] Start: 10-09-2022 End: 10-09-2022 Patient encounter procedure Gurmeet Ojeda MD Work Phone: [facility] [place] Comment on above: Stage 3 chronic kidn ey disease, unspecified whether stage 3a or 3b CKD (HCC) (Primary Dx); Tobacco abuse; Hypertension, renal disease; Mixed hyperlipidemia; Atrophic kidney, acquired Start: 09-03-2022 End: 09-04-2022 ambulatory Bj TEJEDA Facility:[facility] Start: 08-23-2022 End: 08-24-2022 ambulatory DEBRA FISHMAN [facility] Start: 08-09-2022 End: 08-09-2022 Patient encounter procedure Gurmeet Ojeda MD Work Phone: Kidney [facility] Comment on above: Stage 3b chronic kid domingo disease (HCC) (Primary Dx); Hypertension, unspecified type; Orthostatic hypotension; Alkalosis; Hypercholesteremia Start: 08-09-2022 End: 08-10-2022 ambulatory Debra Fishman MD Work Phone: [facility] Start: 08-01-2022 ambulatory TRUDY E NGUYỄN Facili ty:[facility] Start: 07-11-2022 ambulatory DUNBAR FAWWAD Facility: [facility] Start: 06-27-2022 ambulatory TRUDY E NGUYỄN Facili ty:[facility] Start: 06-19-2022 ambulatory DUNBAR H FAWWAD Facilit y:[facility] Start: 06-18-2022 ambulatory DUNBAR FAWWAD Facility: [facility] Start: 06-14-2022 End: 06-15-2022 ambulatory Ayala [facility] Facility:[facility] Start: 06-14-2022 End: 06-14-2022 Patient encounter procedure Ayala SALAM [facility] Start: 06-12-2022 End: 06-13-2022 ambulatory DUNBAR H FAWWAD Facility:[facility] Start: 06-06-2022 End: 06-07-2022 ambulatory TRUDY E NGUYỄN Facility:[facility] Start: 06-06-2022 End: 06-06-2022 Patient encounter procedure TRUDY E NGUYỄN [facility] Start: 05-30-2022 End: 05-31-2022 ambulatory TRUDY E NGUYỄN Facility:[facility] Start: 05-23-2022 End: 05-24-2022 ambulatory TRUDY E NGUYỄN Facility:[facility] Start: 05-23-2022 End: 05-23-2022 Patient encounter procedure TRUDY E NGUYỄN [facility] [place] Start: 04-30-2022 End: 05-01-2022 ambulatory SHAIKH Enrique THOMPSON Facility:[facility] Start: 04-11-2022 End: 04-12-2022 ambulatory TRUDY Goldsmith NGUYỄN Facility:[facility] Start: 04-11-2022 End: 04-11-2022 Patient encounter procedure TRUDY KNOTT [facility] Start: 04-05-2022 End: 04-05-2022 ambulatory Kevyn Sharma Other [employer] Other Start: 04-05-2022 Telephone encounter Kevyn Carmichael [facility] [employer] Start: 03-27-2022 End: 03-28-[address] MARQUEZ BEAL Facility:[facility]1 Start: 03-19-2022 End: 03-19-2022 ambulatory Padmini Sam Other [employer] Other Start: 03-19-2022 Office outpatient vi sit 15 minutes Padmini Sam [facility] Start: 03-13-2022 End: 03-13-2022 Admission to same day surgery center MD Shaikh Thompson Work Phone: [facility] Work Phone: Start: 03-13-2022 End: 03-13-2022 ambulatory MD Shaikh Thompson Work Phone: [facility] Work Phone: Start: 03-12-2022 Office outpatient vi sit 25 minutes Shaikh Donna Work Phone: [facility] 250 DO Work Phone: Start: 02-28-2022 ambulatory SHAIKH DONNA Facility: [facility] Start: 02-26-2022 End: 02-26-[address] XAVIER STAFFORD . Facility:[facility] Start: 02-19-2022 End: 02-20-2022 ambulatory SHAIKH Enrique SAUCEDOWAD Facility:[facility] Start: 01-29-2022 Chart Update Shaikh Felywwad Work Phone: [facility] 600 DO Work Phone: Start: 01-23-[address] Marquez Beal II Facility:[id number] Start: 01-23-2022 Patient encounter procedure Fawwad Work Phone: [facility] 250 DO Work Phone: Start: 11-16-2021 Rx Renewal Shaikh Felywwad Work Phone: [facility] 600 DO Work Phone: Start: 11-09-2021 ambulatory Marquez Beal II Facility: Start: 10-30-2021 End: 10-31-2021 ambulatory SHAIKH Enrique THOMPSON Facility:[facility]1 Start: 10-24-2021 Chart Update Shaikh Jabierwad Work Phone: [facility] 250 DO Work Phone: Start: 10-17-[address] Marquez Beal II Facility:[id number] Start: 09-18-2021 ambulatory Marquez Beal II Facility: Start: 09-18-2021 Office outpatient vi sit 25 minutes Dunbar Fawwad Work Phone: [facility] 250 DO Work Phone: Start: 09-18-2021 End: 09-18-2021 Patient encounter procedure PHYSICIAN AXEL [facility] [place] Start: 09-18-2021 ambulatory Marquez Beal II Faci lity:[id number] Start: 08-23-2021 ([facility] CHUCK) [facility] Transition of Care [facility] Start: 08-23-2021 End: 08-23-2021 ambulatory Linn Byrne Other [facility] [employer] Other Start: 08-23-2021 End: 08-23-2021 Patient encounter procedure PHYSICIAN NO [facility] Start: 08-17-2021 End: 08-17-2021 Patient encounter procedure PHYSICIAN NO [facility] Start: 08-17-2021 ambulatory Marquez Dianeric vinay Hayshussein II Facility:[id number] Start: 08-16-[address] Jaycob joyner Newman Facility:[id number] Start: 08-15-2021 ambulatory Marquez Hayshussein II Facility:[id number] Start: 08-14-2021 ambulatory Marquez Beal II Facility:[id number] Start: 08-13-2021 End: 08-17-2021 Evaluation and management of inpatient PHYSICIAN NO [facility] Start: 08-13-2021 End: 08-13-2021 ambulatory Marquez Beal II Facility:[id number] Start: 12-08-2020 End: 12-11-2020 ambulatory [facility] Start: 12-08-2020 End: 12-10-2020 Subsequent hospital visit by physician [facility] Comment on above: Encounter for screen ing mammogram for malignant neoplasm of breast Procedures Date Procedure Procedure Detail Performing Clinician Start: 03-12-2023 Aspartate aminotrans ferase [Enzymatic activity/volume] in Serum or Plasma MARQUEZ BEAL Start: 03-12-2023 Basic metabolic 2000 panel - Serum or Plasma MARQUEZ BEAL Start: 03-12-2023 Lipid panel MARQUEZ RICKETTS Start: 02-12-2023 Investigation of tra nsfusion reaction MD Shaikh Thompson Work Phone: Start: 02-12-2023 Plain chest X-ray MD Sly Thompson Work Phone: Start: 10-09-2022 Urnls dip stick/tabl et reagent auto microscopy Bulk Order Provider Start: 08-09-2022 Urnls dip stick/tabl et rgnt auto w/o microscopy Bulk Order Provider Start: 03-13-2022 Colonoscopy MD Shaikh Thompson Work Phone: Start: 08-16-2021 OR KELVIN W/IV Sedation PH YSICIAN NO FAMILY Start: [...] Jabier austin Work Phone: Comment on above: 2016; Urine culture PHYSICIAN NO F AMILY Plan of Treatment Date Care Activity Detail Author Start: 10-10-2023 End: 12-10-2023 Renal function 2000 panel - Serum or Plasma RENAL FUNCTION PANEL Lab Routine Stage 3 chronic kidney disease, unspecified whether stage 3a or 3b CKD (HCC) Expected: 10/10/2023, Expires: 12/10/2023 [facility] Work Phone: Comment on above: Expected: 10/10/2023 , Expires: 12/10/2023 Start: 08-24-2023 SERUM CREATININE SERUM CREATININE [facility] Start: 03-12-2023 FUV, Provider: Marquez Beal, Status: Pen, Time: 11:00 AM FUV, Provider: Marquez Beal, Status: Pen, [facility]: [facility] Work [facility]: Start: 02-14-2023 [facility] Start: 02-12-2023 Microbial culture of sputum [facility] Start: 02-12-2023 Aerobic microbial culture Aerobic Cu lture [facility] Start: 02-12-2023 Hospital admission [facility] Start: 02-12-2023 [facility] Start: 10-19-2022 Influenza vaccination [facility] Start: 08-09-2022 End: 10-09-2022 25-hydroxyvitamin D3 [Mass/volume] in Serum or Plasma VITAMIN D 25 HYDROXY Lab Routine Stage 3b chronic kidney disease (HCC) Expected: 08/09/2022, Expires: 10/09/2022 [facility] Work Phone: Comment on above: Expected: 08/09/2022 , Expires: 10/09/2022 Start: 08-09-2022 End: 10-09-2022 MONOCLONAL PROTEIN, SERUM (BLOOD) MONOCLONAL PROTEIN, SERUM (BLOOD) Lab Routine Stage 3b chronic kidney disease (HCC) Expected: 08/09/2022, Expires: 10/09/2022 [facility] Work Phone: Comment on above: Expected: 08/09/2022 , Expires: 10/09/2022 Start: 08-09-2022 End: 10-09-2022 Renal function 2000 panel - Serum or Plasma RENAL FUNCTION PANEL Lab Routine Stage 3b chronic kidney disease (HCC) Expected: 08/09/2022, Expires: 10/09/2022 [facility] Work Phone: Comment on above: Expected: 08/09/2022 , Expires: 10/09/2022 Start: 03-13-2022 [facility] Start: 03-12-2022 FUV, Provider: Marquez Beal, Status: Pen, Time: 8:30 AM FUV, Provider: Marquez Beal, Status: Molina, Time: 8:30 AM [facility] 250 DO Work Phone: Start: 02-18-2022 DEPRESSION ASSESSMENT DEPRESSION ASS ESSMENT [facility] Start: 12-21-2021 FUV, Provider: Marquez Beal, Status: Pen, Time: 12:50 PM FUV, Provider: Marquez Beal, Status: Pen, Time: 12:50 PM -[facility] 600 DO Work Phone: Start: 12-08-2021 Mammography MAMMOGRAM [facility] Start: 11-22-2021 STRESS NUC, Provider : TRENA HHVI NUCLEAR 01,[id number], Status: Pen, Time: 12:00 PM STRESS NUC, Provider: TRENA HHVI NUCLEAR 01,[id number], Status: Pen, Time: 12:00 PM -[facility] 600 DO Work Phone: Start: 11-22-2021 NURSEVST, Provider: KAYLEN ANAND LUMBER TAILER 1,[id number], Status: Pen, Time: 10:30 AM NURSEVST, Provider: KAYLEN ANAND LUMBER TAILER 1,[id number], Status: Pen, Time: 10:30 AM -[facility] 600 DO Work Phone: Start: 11-09-2021 FUV, Provider: Marquez Beal, Status: Pen, Time: 1:10 PM FUV, Provider: Marquez Beal, Status: Pen, Time: 1:10 PM [facility] Work Phone: Start: 10-17-2021 STRESS IVAN, Provider : TRENA HHVI NUCLEAR 01,[id number], Status: Pen, Time: 2:00 PM STRESS IVAN, Provider: TRENA HHVI NUCLEAR 01,[id number], Status: Pen, Time: 2:00 PM -[facility] 250 DO Work Phone: Start: 08-17-2021 [facility] Work Phone: Start: 08-14-2021 Referral to neurologist [facility] Work Phone: Start: 08-14-2021 Blood culture for bacteria, including anaerobic screen Blood Culture [facility] Start: 08-14-2021 [facility] Work Phone: Start: 08-13-2021 Ultrasonography of R ight and Left Heart, Transesophageal Ultrasonography of Right and Left Heart, Transesophageal [facility] Start: 08-13-2021 Hospital admission [facility] Work Phone: Start: 08-13-2021 Referral to office engineer [facility] Work Phone: Start: 03-27-2021 Colonoscopy COLONOSCOPY [facility] Start: 03-27-2021 COLORECTAL CANCER SCREENING COLORECTAL CANCER SCREENING [facility] Start: 03-11-2021 COVID-19 VACCINE (4 - Booster for Pfizer series) COVID-19 VACCINE (4 - Booster for Pfizer series) [facility] Start: 03-11-2021 COVID-19 VACCINE (4 - Pfizer series) COVID-19 VACCINE (4 - Pfizer series) [facility] Start: 02-07-2021 HPV TESTING HPV TESTING [facility] Start: 02-07-2021 PAP TESTING PAP TESTING [facility] Start: 10-19-2020 Influenza vaccination Flu vaccine (# 1) [employer] Phone: Start: 03-14-2017 HEMOGLOBIN/HEMATOCRIT HEMOGLOBIN/HEM ATOCRIT [facility] Start: 2012 Screening for malign ant neoplasm of breast Breast cancer screen [employer] Phone: Start: 2012 Shingles Vaccine (1 of 2) Herring gles Vaccine (1 of 2) [employer] Phone: Start: 2012 SHINGRIX VACCINE (1 of 2) HERRING GRIX VACCINE (1 of 2) [facility] Start: 05-12-2007 COLOGUARD (FIT-DNA) COLOGUARD (FIT-D NA) [facility] Start: 05-12-[address] COLONOGRAPHY [facility] Start: 05-12-2007 DIABETES SCREEN DIABETES SCREEN [facility] Start: 05-12-2007 FECAL OCCULT BLOOD FECAL OCCULT BLOO D [facility] Start: 05-12-2007 LIPID SCREEN LIPID SCREEN [facility] Start: 05-12-2007 Screening for malign ant neoplasm of colon Colon cancer screen colonoscopy [facility] Work Phone: Start: 05-12-2007 SIGMOIDOSCOPY SIGMOIDOSCOPY [facility] Start: 2002 Lipid panel Lipid screen [facility] Work Phone: Start: 1992 Screening for malign ant neoplasm of cervix [facility] [employer] Phone: Start: 05-12-1983 Screening for malign ant neoplasm of cervix Pap smear [facility] Work Phone: Start: 1981 DTaP/Tdap/Td vaccine (1 - Tdap) DTaP/Tdap/Td vaccine (1 - Tdap) [facility] [employer] Phone: Start: 1981 Urine microalbumin profile DTAP,TDAP,TD (1 - Tdap) [facility] Start: 1980 ANNUAL PCP TEAM UX RESEARCH ASSOCIATE ZEFERINO DISEASE VISIT ANNUAL PCP TEAM CHRONIC DISEASE VISIT [facility] Start: 1980 HEPATITIS C SCREENING HEPATITIS C [facility] Start: 1980 HIV SCREENING HIV SCREENING [facility] Start: 1977 HIV screening HIV screen [facility] Work Phone: Start: 1962 Hepatitis C screening Hepatitis C [facility] Work Phone: Activated protein C resistance assay [facility] Work Phone: Antithrombin [Units/volume] in Platelet poor plasma by Chromogenic method [facility] Work Phone: aPTT.lupus sensitive (LA screen) [facility] Work Phone: aPTT.lupus sensitive W excess phospholipid actual/Normal (normalized LA confirm) [facility] Work Phone: aPTT.lupus sensitive/aPTT.lupus sensitive W excess phospholipid (screen to confirm ra [facility] Work Phone: Beta 2 glycoprotein 1 IgG Ab [Units/volume] in Serum [facility] Work Phone: Beta 2 glycoprotein 1 IgM Ab [Units/volume] in Serum [facility] Work Phone: Cardiolipin IgG Ab [Units/volume] in Serum by Immunoassay [facility] Work Phone: Cardiolipin IgM Ab [Units/volume] in Serum by Immunoassay [facility] Work Phone: dRVVT (LA screen) [facility] Work Phone: F2 gene mutations fo und [Identifier] in Blood or Tissue by Molecular genetics method [employer] [facility] Work Phone: Homocysteine [Moles/volume] in Serum or Plasma [facility] Work Phone: Lupus anticoagulant [Interpretation] in Platelet poor plasma [facility] Work Phone: End: 12-08-2020 BERTA KYARA DIGITAL SCREEN SELF REFERRAL W OR WO CAD BILATERAL BERTA KYARA DIGITAL SCREEN SELF REFERRAL W OR WO CAD BILATERAL Imaging Routine Encounter for screening mammogram for malignant neoplasm of breast 1 Occurrences starting 12/08/2020 until 12/08/2020 [facility] Work Phone: Comment on above: 1 Occurrences starti ng 12/08/2020 until 12/08/2020 BERTA KYARA DIGITAL SCR EEN SELF REFERRAL W OR WO CAD BILATERAL BERTA KYARA DIGITAL SCREEN SELF REFERRAL W OR WO CAD BILATERAL Imaging Routine Encounter for screening mammogram for malignant neoplasm of breast 12/08/2020 1:30 PM EDT [facility] Work Phone: Patient Education [facility] Work Phone: Patient referral [facility] Work Phone: Plasminogen assay [facility] Work Phone: Protein C actual/nor mal in Platelet poor plasma by Chromogenic method [facility] Work Phone: Protein S Free Ag [Units/volume] in Platelet poor plasma by Immunoassay [facility] Work Phone: Renin [Enzymatic activity/volume] in Plasma [facility] Work Phone: End: 09-08-2023 US KIDNEY/BLADDER US KIDNEY/BLADDER Radiology Routine Stage 3b chronic kidney disease (HCC) 1 Occurrences starting 08/09/2022 until 09/08/2023 [facility] Work Phone: Comment on above: 1 Occurrences starti ng 08/09/2022 until 09/08/2023 [facility] Immunizations Immunization Date Immunization Notes Care Provider Fa cility 01-14-2021 Pfizer-BioNTech COVI D-19 Vacc 30 MCG/0.3ML Intramuscular Suspension Shaikh Donna Work Phone: [facility] Comment on above: Result Comment: 2022: [id number] 06-25-2020 Pfizer-BioNTech COVI D-19 Vacc 30 MCG/0.3ML Intramuscular Suspension Dunbarenrique Thompson Work Phone: [facility] Comment on above: Reason for Medicatio n: Prophylaxis 06-04-2020 Pfizer-BioNTech COVI D-19 Vacc 30 MCG/0.3ML Intramuscular Suspension Dubnar Donna Work Phone: [facility] Comment on above: Reason for Medicatio n: Prophylaxis Payers Date Payer Category Payer Self-pay [id number] 2022 Medicaid [id number] 2020 Private Health Insurance [id number] 1960 Unknown [id number] 2.16.8 40.1.045121.3.579.2.8 1962 Unknown [id number] 2.16.8 40.1.018202.3.579.2.1068 1962 Unknown [id number] 2.16. 840.1.981561.3.579.2.356 1962 Unknown [id number] 2.16. 840.1.571375.3.579.2.356 1962 Unknown [id number] 2.16. 840.1.099813.3.579.2.356 1962 Unknown [id number] 2.16. 840.1.627322.3.579.2.356 1962 Unknown [id number] 2.16. 840.1.662712.3.579.2.356 1962 Unknown [id number] 2.16. 840.1.599550.3.579.2.356 1962 Unknown [id number] 2.16. 840.1.534343.3.579.2.356 1962 Unknown [id number] 2.16. 840.1.949167.3.579.2.356 1962 Unknown [id number] 2.16. 840.1.153068.3.579.2.356 1962 Unknown [id number] 2.16. 840.1.273695.3.579.2.356 1962 Unknown [id number] 2.16. 840.1.956562.3.579.2.356 1962 Unknown [id number] 2.16.84 0.1.919764.3.579.2.593 1962 Unknown [id number] 2.16.84 0.1.208553.3.579.2.593 1962 Unknown [id number] 2.16.84 0.1.266878.3.579.2.593 1962 Unknown [id number] 2.16.84 0.1.218860.3.579.2.593 1962 Unknown [id number] 2.16.84 0.1.103102.3.579.2.593 1962 Unknown [id number] 2.16.84 0.1.117131.3.579.2.593 1962 Unknown [id number] 2.16.84 0.1.214904.3.579.2.593 1962 Unknown [id number] 2.16.84 0.1.827841.3.579.2.593 1962 Unknown [id number] 2.16.8 40.1.361253.3.579.2.727 1962 Unknown [id number] 2.16.8 40.1.004474.3.579.2.72 1962 Unknown [id number] 2.16.8 40.1.080453.3.579.2.72 1962 Unknown [id number] 2.16.8 40.1.414442.3.579.2.727 1962 Unknown [id number] 2.16.8 40.1.969549.3.579.2.72 1962 Unknown [id number] 2.16.8 40.1.720658.3.579.2.72 1962 Unknown [id number] 2.16.8 40.1.919988.3.579.2.72 1962 Unknown [id number] 2.16.8 40.1.130439.3.579.2.727 1962 Unknown [id number] 2.16.8 40.1.617150.3.579.2.727 1962 Unknown [id number] 2.16.8 40.1.251373.3.579.2.72 1962 Unknown [id number] 2.16.8 40.1.216719.3.579.2.727 1962 Unknown [id number] 2.16.8 40.1.395503.3.579.2.72 1962 Unknown [id number] 2.16.8 40.1.288771.3.579.2.727 1962 Unknown [id number] 2.16.8 40.1.963195.3.579.272 1962 Unknown [id number] 2.16.8 40.1.669525.3.579.2.727 1962 Unknown [id number] 2.16.840 .1.350363.3.579.2.1259 1962 Unknown [id number] 2.16.8 40.1.168802.3.579.2.1244 1959 Medicaid [id number] Unknown [id number] Unknown Unknown [id number] 2.16.8 40.1.612388.3.579.2.531 Unknown [id number] 2.16.8 40.1.192321.3.579.2.531 Social History Date Type Detail Facility Start: 12-08-2020 Tobacco smoking stat [facility] Unknown if ever smoked [employer] Phone: Start: 1960 Sex Assigned At Not on file M [facility] Phone: Start: 08-16-2021 End: 08-09-2022 Tobacco smoking status COIS Ex-smoker (finding) [facility] Start: 08-09-2022 End: 10-09-2022 History of tobacco use [facility] Start: 1960 Sex Assigned At Female F [facility] Start: 08-09-2022 End: 10-09-2022 Daily caffeine consumption Daily caffeine consumption [facility] Pint Please DO Work Phone: Comment on above: 1 CUP OF COFFEE; 2 CIGS DAILY; quit 2021; Start: 04-11-2022 End: 10-15-2022 Tobacco smoking status Heavy tobacco smoker (finding) [facility] Tobacco smoking status Never [facility] Start: 02-12-2023 End: 08-18-2017 History of tobacco use Current smoker [facility] End: 08-18-2017 History of tobacco use Cigarette Smoker [facility] Start: 08-09-2022 Tobacco use and exposure Smokeless tobacco non-user [facility] Start: 08-09-2022 Alcohol intake Current drinke r of alcohol (finding) [facility] Start: 10-09-2022 Alcohol intake Ex-drinker (finding) [facility] Start: 02-10-2023 Tobacco smoking status Light t obacco smoker (finding) [facility] Goals Date Patient Goal Desired Activity /State Functional Status Date Assessment Result Facility 02-14-2023 Functional status Patient at Baseline [facility] Work Phone: 02-10-2023 Functional Status N/A [facility] 10-15-2022 Functional Status N/A [facility] 06-14-2022 Functional Status N/A [facility] 06-06-2022 Functional Status N/A [facility] 05-23-2022 Functional Status N/A [facility] 04-11-2022 Functional Status N/A [facility] Joe 08-17-2021 Functional status Patient at Baseline [facility] Work Phone: Mental Status Date Assessment Result Facility 02-14-2023 Cognitive function Cognitive Sta tus Patient at Baseline [facility] Work Phone: 08-17-2021 Cognitive function Cognitive Sta tus Patient at Baseline [facility] Work Phone: Clinical Notes 01-18-2010 to 02-14-2023 Note Date & Type Note Facility 02-14-2023 Discharge summary Note Date/Time February 14, 2023 12:53pm [facility] [address] [place] [id number] Discharge Summary Signed Patient: Deysi Hernandez MR#: [id number] : 1960 Acct:[id number] Age/Sex: 62 / F Adm Date: 3 Loc: Room: [address] [place] [address]: Jacquse East MD Copies to: MD Shaikh Donna [...] female with PMHx of CKD presented to [facility] with shortness of breath and [facility] [place] [facility] [place] to [place] troponins. Patient states she [...] % (Auto) 87.6, Lymph % (Auto) 7.6, Person % (Auto) 4.7, Eos % (Auto) 0.0, Baso % (Auto) 0.1, Nucleat RBC Rel Count 0.0, Neut # (Auto) 11.1 H, Lymph #(Auto) 1.0, Person # (Auto) 0.6, Eos # (Auto) 0.0, [...] <Electronically signed by Jacques East MD> 02/14/23 [facility] Work Phone: 1(937) 930-654212-28-2023 Progress note Author Jacques East [facility] February 14, 2023 12:45pm Note Date/Time February 14, 2023 7:29am [facility] [address] [place] [address] Hospitalist Progress Note Signed Patient: Deysi Hernandez MR#: [id number] : 1960 Acct:[id number] Age/Sex: 62 / F Adm Date: 3 Loc: Room: [address] [place] [address] Type: ADM IN Attending Dr: Jacques East [...] creatinine clearance -Trending downward from 80s at [place] to 70s here. repeat trop 43, flat [...] with plan Documented By: Geneva Rivas DO, MARIANELA 02/14/23 0725 Signed By: <Electronically signed by DO MARIANELA Rivas> 02/14/23 1132 <Electronically signed by Jacques East MD> 02/14/23 8653 [facility] Work Phone: 1([phone]) 584-267812-27-2023 Progress note Author Jacques East [facility] February 13, 2023 10:47am Note Date/Time February 13, 2023 10:40am [facility] [address] [place] [address] Hospitalist Progress Note Signed Patient: Deysi Hernandez MR#: [id number] : 1960 Acct:[id number] Age/Sex: 62 / F Adm Date: 3 Loc: Room: [address] [place] [address] Type: ADM IN Attending Dr: Jacques East [...] Dose Route Start Last Admin Trade Name Freguillermo PRN Reason Stop Dose Admin Acetaminophen 650 [...] 02/13/23 09:47 Doxy 100 IV Infused Q12H ETSEBAN Infusion Lisinopril 20 mg 02/13/23 09:00 02/13/23 [...] creatinine clearance -Trending downward from 80s at [place] to 70s here. repeat trop 43, flat [...] <Electronically signed by Jacques East MD> 02/13/[address] [place] [address] Work Phone: 1(808) 302-396112-26-2023 History and physical note Author Jacques East [facility] February 12, 2023 11:26am Note Date/Time February 12, 2023 9:53am [facility] [address] [place] [address] Hospitalist H&P Signed Patient: Deysi Hernandez MR#: [id number] : 1960 Acct:[id number] Age/Sex: 62 / F Adm Date: 3 Loc: Room: [address] [place] [address] Type: ADM INOo Attending Dr: Jacques East MD Copies to: Geneva Rivas DO, RES MD Shaikh Donna Piña MD~ HPI DATE OF EXAMINATION: 02/12/23 CHIEF COMPLAINT: Shortness of breath HISTORY OF PRESENT ILLNESS: Patient is a 62 year old female with PMHx of CKD presented to [facility] with shortness of breath and was [facility] [place] [facility] due to elevated troponins. Patient states she [...] troponin 70.6 (down from 87 yesterday at [place]). Review of Systems Review of Systems All other systems reviewed & are negative unless noted below or in HPI Review of systems: 10 systems are reviewed and are negative except as mentioned elsewhere in the documentation [facility] Medical History CKD (chronic kidney disease) stage 3, GFR 30-59 ml/min Embolic cerebrovascular disease High cholesterol Problem List clean-up per request of Phys. EHR Cmte Hypertension Problem List clean-up per request of Phys. [facility] Family [facility] Father Myocardial infarction Heart disease [...] % (Auto) 4.0 % (.) 02/12/23 06:41 Person % (Auto) 1.8 % (.) 02/12/23 06:41 Eos % (Auto) 0.0 % (.) 02/12/23 06:41 Baso % (Auto) 0.2 % (.) 02/12/23 06:41 Nucleat RBC Rel Count 0.1 /100 WBC (0-0.5) 02/12/23 06:41 Neut # (Auto) 14.1 x10E3/uL (1.8-7.7) H 02/12/23 06:41 Lymph # (Auto) 0.6 x10E3/uL (1.00-4.8) L 02/12/23 06:41 Person # (Auto) 0.3 x10E3/uL (0.0-0.8) 02/12/23 06:41 [...] from 80s at [place] to 70s here. Will trend it again. [...] signed by Jacques East MD> 02/12/23 1126 [facility] Work Phone: [phone] 876-139612-24-2023 Hospital Discharge instructions Patient Education 02/10/2023 17:12:09 Urinary Tract Infection, Adult, Xnlx-fj-Naer Urinary Tract Infection, Adult A urinary tract [...] Follow these instructions at home: Medicines Take vakx-xlg-vtvrqcu and prescription medicines only as told by [...] provider. Document Revised: 09/16/2020 Document Reviewed: 09/16/2020 [employer] Patient Education 2022 [employer]. 02/10/2023 17:12:09 Acute Bronchitis, Adult Acute Bronchitis, [...] condition. 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 Avoid contact with people who have cold [...] it is easier to cough up. Take bbgv-vsr-pphqfcs and prescription medicines only as told by [...] provider. Document Revised: 05/17/2022 Document Reviewed: 06/07/2021 [employer] Patient Education 2022 [employer]. Follow Up Care 02/10/2023 14:38:40 With:SHAIKH DONNA Address: [address] [place] [address] [phone] Business (1) When:02/13/2023 16:16:37 Comments:Follow-up with your primary care provider in 3 to 5 days. If symptoms worsen, do not improve, or new symptoms arise please report back to emergency department for further evaluation.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 Appointment Type:URO Procedure 30 min Appointment Date:06/13/2022 10:30:00 AM Scheduled Provider:TRUDY KNOTT PA-C Location:[facility] Appointment Type:URO Procedure 30 min Appointment Date:06/14/2022 12:45:00 PM Scheduled Provider:Jamie BILLS MD Location[facility] App[facility]ment Type:[facility] New Patient Appointment Date:06/27/2022 10:30:00 AM Scheduled Provider:TRUDY KNOTT PA-C Location:[facility] Appointment Type:URO Procedure 30 min Appointment Date:07/11/2022 10:30:00 AM Scheduled Provider:TRUDY KNOTT PA-C Location:[facility] Appointment Type:URO Procedure 30 min [facility] evaluation + Plan note Future Appointments Appointment Date:06/13/2022 10:30:00 AM Scheduled Provider:TRUDY KNOTT PA-C Location:[facility] Appointment Type:URO Procedure 30 min Appointment Date:06/14/2022 12:45:00 PM Scheduled Provider:Jamie BILLS MD Location:[facility] Appointment Type:[facility] New Patient Appointment Date:06/27/2022 10:30:00 AM Scheduled Provider:TRUDY KNOTT PA-C Location:[facility] Appointment Type:URO Procedure 30 min Appointment Date:07/11/2022 10:30:00 AM Scheduled Provider:TRUDY KNOTT PA-C Location:[facility] Appointment Type:URO Procedure 30 min [facility] Evaluation + Plan note Future Appointments Appointment Date:06/27/2022 10:30:00 AM Scheduled Provider:TRUDY KNOTT PA-C [facility] Appoint[facility] Type:URO Procedure 30 min Appointment Date:07/11/2022 10:30:00 AM Scheduled Provider:TRUDY KNOTT PA-C Location:[facility] Appointment Type:URO Procedure 30 min Appointment Date:08/01/2022 08:30:00 AM Scheduled Provider:TRUDY KNOTT PA-C Location:[facility] Appointment Type:URO Procedure 30 min [facility] Evaluation note* Diagnosis Encounter for screening mammogram for malignant neoplasm of breast Other screening mammogram documented in this encounter [facility] Work Phone: evaluation note* Diagnosis Onset Date Resolution Status Abnormal EKG acute Altered mental status acute Delirium acute Elevated troponin acute Embolic stroke acute Essential hypertension acute Hyperlipidemia acute Hypertensive urgency acute Pyelonephritis acute [facility] Work Phone: Evaluation note* Diagnosis Onset Date Resolution Status History of colon polyps acut e [facility] Work Phone: Evaluation noteNo [employer] Other Evaluation note* Diagnosis Stage 3b chronic kidney disease (HCC)- Primary Hypertension, unspecified type Orthostatic hypotension Alkalosis Hypercholesteremia Pure hypercholesterolemia [facility] Diagnosis Screening for genitourinary condition Screening for other and unspecified genitourinary condition [facility] Diagnosis Screening for genitourinary condition Screening for other and unspecified genitourinary condition [facility] Diagnosis Onset Date Resolution Status Acute hypoxic respiratory failure acute CKD (chronic kidney disease) stage 3, GFR 30-59 ml/min acute Community acquired pneumonia acute Hypertension acute Shortness of breath acute [facility] Work Phone: Evaluation note* Diagnosis Onset Date Resolution Status Acute hypoxic respiratory failure acute Community acquired pneumonia acute Shortness of breath resolved [facility] Work Phone: History of Present [...] will be performed in the near future. [facility] 250 DO Work Phone: History of Present illness Narrative* [...] will be performed in the near future. [facility] Work Phone: History of Present [...] will be performed in the near future. [facility] Work Phone: History of Present [...] to her she follow-up with primary care henceforth.-[facility] 250 DO Work Phone: [facility] Work Phone: [facility] [facility] Work Phone: [facility] [facility] Work Phone: Hospital Discharge instructions Additional Instructions [...] if you have any problems. -Office number [phone] Work Phone: Hospital Discharge instructions No data available for this section [facility] Discharge instructions Additional Instructions [...] smoking -Continue oxygen at 1L NC with [facility]ion[facility] Work Phone: Progress note Author Marquez Beal [facility] August 17, 2021 1:47pm Note Date/Time August 17, 2021 1:47 pm [facility] [address] [place] [address] Cardiology Progress Note Signed Patient: Deysi Hernandez MR#: [id number] : 1960 Acct:[id number] Age/Sex: 61 / F Adm Date: 2 Loc: Room: [address] [place] [address] Type : ADM IN Attending Dr: Ricky [...] % (Auto) 63.6 Lymph % (Auto) 23.7 Person % (Auto) 10.2 Eos % (Auto) 1.8 Baso % (Auto) 0.7 Neut # (Auto) 6.3 Lymph # (Auto) 2.4 Person # (Auto) 1.0 H Eos # (Auto) [...] signed by MD Marquez Beal> 08/17/21 1347 [facility] Work Phone: Progress note No data available for this section [facility] reason for referral (narrative)* Diagnostic Procedure Only (Routine) - Pending Review Specialty Diagnoses / Procedures Referred By Contac t Referred To Contact US IMAGING Diagnoses Stage 3b chronic kidney disease (HCC) Procedures US KIDNEY/BLADDER US RETROPERITONEAL REAL TIME W/[place] [id number] [address] [id number] Us Imaging Referral ID Status Reason Start Date Expiration Date Visits Requested Visits Authorized [id number] Pending Review Auto-Generat ed Referral 08/09/2022 09/08/2023 1 1 [facility] Summary Purpose Family History No Family [...] pneumonia Hypertension Shortness of breath Chief Complaint Elevated Triponin E78.2;I10;f17.220 Reason for Visit Acute hypoxic respir atory failure Community acquired pneumonia Shortness of breath Chief Complaint DEYSI HERNANDEZ is being seen for [facility].DEYSI HERNANDEZ is being seen for [facility].DEYSI HERNANDEZ is being seen for [facility] Results: Right Brachial: 1.00 Left Brachial: [...] REFERRAL W OR WO CAD BILATERAL Alexandr Swenson MD [address] [id number] Reason Comments Consult Reason Comments Follow Up Reason Comments Patient Question INFORMATION SOURCE (unrecogn ized section and content) DATE CREATED AUTHOR 12/17/2020 [facility] DATE CREATED AUTHOR AUTHOR'S ORGANIZ ATION [facility]/2022 [facility] DATE CREATED AUTHOR AUTHOR'S ORGANIZ ATION 03/06/2022 [facility] DATE CREATED AUTHOR AUTHOR'S ORGANIZ ATION 07/03/2022 [facility] DATE CREATED AUTHOR AUTHOR'S ORGANIZ ATION 08/28/2022 [facility] DATE CREATED AUTHOR AUTHOR'S ORGANIZ ATION 10/30/2022 [facility] DATE CREATED AUTHOR AUTHOR'S ORGANIZ ATION 02/13/2023 [facility] DATE CREATED AUTHOR AUTHOR'S ORGANIZ ATION 02/20/2023 [facility] EPIC DATE CREATED AUTHOR AUTHOR'S ORGANIZ ATION 03/14/2023 [facility] DATE CREATED AUTHOR AUTHOR'S ORGANIZ ATION 03/31/2023 [facility] Care Teams (unrecognized sec tion and content) Team Status: Active Member Role Status Dates PHYSICIAN NO FAMILY Primary Care Provider Active LINA Rose Attending Provider Active Team Status: Inactive Member Role Status Dates PHYSICIAN NO FAMILY Primary Care Provider Active Alaina Arce MD Admit Provider Active Marquez Beal MD Referring Provider, Other Provider Active Rober Wyatt DO Other Provider Active Ricky Reynoso DO Attending Provider Active Team Status: Active Member [...] Donna MD Primary Care Provider Active Kevyn Sharma MD Attending Provider Active [employer] Relationship Specialty Start Date End Date Shaikh Thompson MD [address] [place] [address] PCP - General Primary Care 08/09/22 [employer] Relationship Specialty Start Date End Date Shaikh Thompson MD [address] [place] [address] PCP - General Primary Care 08/09/22 [employer] Relationship Specialty Start Date End Date Shaikh Thompson MD [facility] [place] [address] PCP - General Primary Care 08/09/22 [employer] Relationship Specialty Start Date End Date Shaikh Thompson MD [address] [place] [address] PCP - General Primary Care 08/09/22 [employer] Relationship Specialty Start Date End Date Shaikh Thompson MD [address] [place] [address] PCP - General Primary Care 08/09/22 [employer] Relationship Specialty Start Date End Date Shaikh Thompson MD [address] [place] [address] PCP - General Primary Care 08/09/22 Team Status: Inactive Member Role Status Aldair Thompson MD Primary Care Provider Active Jacques East MD Admit Provider, Attending Provi katerina Active Team Status: Inactive Member Role Status Aldair Thompson MD Primary Care Provider Active Start: February 12, 2023 End: February 14, 2023 Jacques East MD Admit Provider, A ttending Provider Active Start: February 12, 2023 End: February 14, 2023 Team Status: Inactive Member Role Status Aldair Thompson MD Primary Care Provider Active Start: March 12, 2023 End: March 12, 2023 Marquez Beal MD Attending Provider Active Start: March 12, 2023 End: March 12, 2023 Source Comments (unrecognize d section and content) In the event this informatio n is protected by the Federal Confidentiality of Alcohol and Drug Abuse Patient Records regulations: The Federal rules restrict any use of the information to criminally investigate or prosecute any alcohol or drug abuse patient.[facility] the event this information is protected by the Federal Confidentiality of Alcohol and Drug Abuse Patient Records regulations: The Federal rules restrict any use of the information to criminally investigate or prosecute any alcohol or drug abuse patient.[facility] Hospital[facility] the event this information is protected by the Federal Confidentiality of Alcohol and Drug Abuse Patient Records regulations: The Federal rules restrict any use of the information to criminally investigate or prosecute any alcohol or drug abuse patient.[facility] Hospital[facility] the event this information is protected by the Federal Confidentiality of Alcohol and Drug Abuse Patient Records regulations: The Federal rules restrict any use of the information to criminally investigate or prosecute any alcohol or drug abuse patient.[facility] Hospital[facility] the event this information is protected by the Federal Confidentiality of Alcohol and Drug Abuse Patient Records regulations: The Federal rules restrict any use of the information to criminally investigate or prosecute any alcohol or drug abuse patient.[facility] Hospital[facility] the event this information is protected by the Federal Confidentiality of Alcohol and Drug Abuse Patient Records regulations: The Federal rules restrict any use of the information to criminally investigate or prosecute any alcohol or drug abuse patient.[facility] Hospital[facility] the event this information is protected by the Federal Confidentiality of Alcohol and Drug Abuse Patient Records regulations: The Federal rules restrict any use of the information to criminally investigate or prosecute any alcohol or drug abuse patient.[facility] FOR RECORDS PERTAINING TO PATIENTS WHO [...] BE BASED ON THE PRIMARY CLINICAL RECORDS. [facility] [employer] [facility]. provides no warranty or guarantee of the accuracy or completeness of information in this document.
--- NOTE | 2023-04-23 22:58 | ED.GENADUL1 ---
HPI - General Adult General Chief complaint: Chest Pain Stated complaint: BACK PAIN Time Seen by Provider: 04/23/23 22:49 Source: patient Mode of arrival: walk-in Limitations: no limitations History of Present Illness HPI narrative: patient presents with multiple complaints. right CVA pain yesterday. left shoulder/scapula pain 2 days ago. Lower quad pain today. No vomiting or diarrhea. dizzy episodes where in there is a fleeting sensation of everything moving moving . Headache yesterday but not today. No weakness. No urinary symptoms. Related Data Allergies Allergy/AdvReac Type Severity Reaction Status Date / Time codeine Allergy Verified 02/12/23 00:05 Review of Systems ROS Status of ROS 10 or more systems reviewed and unremarkable except as noted in history and below [facility] Social History Smoking status: Current every day smoker Exam Constitutional Vital Signs, click to edit/add: Last Vital Signs Temp 98.2 F 04/23/23 22:32 Pulse 69 04/24/23 02:20 Resp 25 H 04/24/23 02:20 BP 137/86 04/23/23 22:33 Pulse Ox 91 L 04/24/23 01:00 O2 Del Method Room Air 04/23/23 22:32 Common normals: no apparent distress, average body habitus, oriented x3, no limitations, healthy appearing, alert and well nourished [facility] Common normals: normocephalic and head/scalp atraumatic Eye Common normals: PERRL, EOMs intact bilaterally and conjunctivae normal Chest Common normals: inspection of chest normal, palpation of chest normal and inspection of breasts normal Respiratory Common normals: normal respiratory effort, no retractions, no use of accessory muscles and clear to auscultation bilaterally Cardio Common normals: regular rate, regular rhythm, S1 normal heart sound and S2 normal heart sound GI Common normals: Normal to inspection, nondistended, normoactive bowel sounds present and soft to palpation Other: suprapubic tenderness Extremity Common normals: normal to inspection and full ROM Neuro Common normals: oriented x3, CN's II-XII intact bilaterally, moves all extremities and no focal motor deficits Psych Appearance: grossly normal Course Vital Signs Vital signs: Vital Signs Temperature 98.2 F 04/23/23 22:32 Pulse Rate 89 04/23/23 22:32 Respiratory Rate 20 04/23/23 22:32 Blood Pressure 137/86 04/23/23 22:32 Pulse Oximetry 94 L 04/23/23 22:32 Oxygen Delivery Method Room Air 04/23/23 22:32 Temperature 98.2 F 04/23/23 22:32 Pulse Rate 69 04/24/23 02:20 Respiratory Rate 25 H 04/24/23 02:20 Blood Pressure 137/86 04/23/23 22:33 Pulse Oximetry 91 L 04/24/23 01:00 Oxygen Delivery Method Room Air 04/23/23 22:32 Medical Decision Making MDM Narrative Medical decision making narrative: patient presents with nonspecific complaints over past several days including right flank pain, left scapula pain. These resolved and then she developed suprapubic pain resulting in her visit. Workup neg. pain improved after toradol. Labs revealed CKD. CT with left renal cyst and atrophy. Patient is feeling better. Discharged to follow up with her doctor to continue workup Lab Data Labs: Lab Results 04/23/23 04/24/23 04/24/23 Range/Units 23:19 01:15 01:38 WBC 5.9 (4.0-11.0) 10^3/uL RBC 4.90 (4.20-5.40) 10^6/uL Hgb 15.2 (12.0-16.0) g/dL Hct 46.2 (36.0-48.0) % MCV 94.3 (81.0-99.0) fL MCH 31.0 (26.7-34.0) pg MCHC 32.9 (29.9-35.2) g/dL RDW 13.6 (11.0-15.0) % Plt Count 171 (150-450) 10^3/uL MPV 9.7 (9.5-13.5) fL Neut % (Auto) 51.2 (43.0-75.0) % Lymph % (Auto) 29.5 (20.5-60.0) % [place] % (Auto) 17.8 H (1.7-12.0) % Eos % (Auto) 0.3 L (0.9-7.0) % Baso % (Auto) 1.0 (0.2-2.0) % Neut # (Auto) 3.0 (1.4-6.5) 10^3/uL Lymph # (Auto) 1.8 (1.2-3.8) 10^3/uL [place] # (Auto) 1.1 H (0.3-0.8) 10^3/uL Eos # (Auto) 0.0 (0.0-0.7) 10^3/uL Baso # (Auto) 0.1 (0.0-0.1) 10^3/uL Abs Immat Gran (auto) 0.01 (0.00-0.03) 10^3/uL Imm/Tot Granulo (auto) 0.2 (0.0-0.5) % Sodium 140 (136-145) mmol/L Potassium 3.7 (3.5-5.1) mmol/L Chloride 105 (98-107) mmol/L Carbon Dioxide 27.1 (21.0-32.0) mmol/L Anion Gap 11.6 BUN 16.0 (7.0-18.0) mg/dL Creatinine 1.57 H (0.55-1.02) mg/dL Est GFR ( Amer) 41 L (>=60) Est GFR (Non-Af Amer) 34 L (>=60) BUN/Creatinine Ratio 10.2 Glucose 112 H (74-106) mg/dL Calcium 9.3 (8.5-10.1) mg/dL Troponin I High Sens 8.5 9.6 (4.0-51.3) pg/mL Urine Color Lt. yellow (YELLOW) Urine Clarity Clear (CLEAR) Urine pH 6.0 (5.0-9.0) Ur Specific [place] 1.020 (1.005-1.025) Urine Protein Negative (NEG/TRACE) mg/dL Urine Glucose (UA) Negative (NEGATIVE) mg/dL Urine Ketones Negative (NEGATIVE) mg/dL Urine Occult Blood Small A (NEGATIVE) Urine Nitrite Negative (NEGATIVE) Urine Bilirubin Negative (NEGATIVE) Urine Urobilinogen 0.2 (0.2-1.0) EU/dL Ur Leukocyte Esterase Negative (NEGATIVE) Urine RBC 0-2 (0-2) #/HPF Urine WBC 0-2 A (NONE SEEN) #/HPF Ur Squamous Epith Cells Rare (NONE/RARE) #/LPF Urine Crystals None seen (None Seen) #/HPF Urine Bacteria None seen (NONE SEEN) #/HPF Urine Casts None seen (NONE SEEN) #/LPF Urine Mucus None seen (NONE SEEN) Imaging Data Chest x-ray: Radiologist's impression: ITS Impressions Chest X-Ray 04/23/23 23:02 IMPRESSION: No acute cardiopulmonary process. Electronically authenticated by: JOVANNI WATERS Date: 04/23/2023 23:54 Abdomen/Pelvis CT 04/23/23 23:03 IMPRESSION: 1. No urinary tract calculi or acute findings in the abdomen or pelvis. No specific cause of suprapubic pain is seen. 2. Nonspecific complex cyst or possible renal mass cannot be excluded in the upper pole of the left kidney, incompletely evaluated on this nonenhanced exam. Moderate asymmetric left renal atrophy with some cortical thinning is unchanged and may reflect long-standing left renal artery stenosis. 3. Mild colonic diverticulosis. 4. Dense aortic and iliac arterial calcifications with ectatic infrarenal abdominal aorta measuring 2.6 cm. 5. Normal appendix. Electronically authenticated by: FRANCISCO FRANK Date: 04/24/2023 00:10 Discharge Plan Discharge Chief Complaint: Chest Pain Clinical Impression: Renal cyst, Abdominal pain Patient Disposition: Home, Self-Care Instructions: Abdominal Pain (ED), Kidney Cyst (ED) Additional Instructions: follow up with Dr Thompson this week or next regarding your renal cyst. Tylenol for pain Referrals: Shaikh Thompson MD [Primary Care Provider] - 1 week Stand Alone Forms: Portal Instructions
--- NOTE | 2023-04-23 23:02 | XR_ITS ---
The [address] [address] Patient Name: SIXTO RICH MRN: [id number] date: 1960 Sex: F Assigned Patient Location: ER Current Patient Location: ER Accession/Order Number: [id number] Exam Date: 04/23/2023 23:26 Report Date: 04/23/2023 23:54 At the request of: ARI VICTORIA Procedure: XR chest 1V EXAMINATION: XR chest 1V, , 04/23/2023 11:26 PM EST INDICATION: chest pain HISTORY: Ordering Provider Reason for Exam: chest pain Technologist Note: Additional: COMPARISON: Chest x-ray dated 02/12/2023. TECHNIQUE: Chest x-ray: One view. FINDINGS: No pneumothorax, pleural effusion or focal airspace consolidation. Heart is normal in size. Bony thorax is unremarkable. XR/XR chest 1V IMPRESSION: No acute cardiopulmonary process. Electronically authenticated by: JOVANNI WATERS Date: 04/23/2023 23:54
--- NOTE | 2023-04-23 23:03 | CT_ITS ---
The [address] [address] Patient Name: SIXTO RICH MRN: [id number] date: 1960 Sex: F Assigned Patient Location: ER Current Patient Location: ER Accession/Order Number: [id number] Exam Date: 04/23/2023 23:26 Report Date: 04/24/2023 00:10 At the request of: ARI VICTORIA Procedure: CT abdomen pelvis wo con EXAM: CT abdomen pelvis wo con HISTORY: suprapubic pain COMPARISON: CT abdomen pelvis, 08/13/2021. TECHNIQUE: Nonenhanced CT imaging the abdomen and pelvis was performed with sagittal and coronal reconstructions. Dose reduction techniques were achieved by using automated exposure control and/or adjustment of mA and/or kV according to patient size and/or use of iterative reconstruction technique. FINDINGS: CT ABDOMEN: There is a fat-containing herniation of the medial posterior left diaphragm on image 12 of series 3. The lung bases appear clear. Coronary arterial calcifications are seen in the RCA. Cardiac size is normal. There is no pericardial effusion. The exam is limited by the lack of IV contrast. Solid organ lesions or acute abnormalities could be missed. Allowing for this, the liver, gallbladder, pancreas, spleen, adrenal glands, stomach and small bowel are grossly unremarkable. There are severe aortic and iliac arterial calcifications with an ectatic infrarenal abdominal aorta measuring 2.6 cm on image 48. Bilateral renal arterial calcifications are noted extending towards both central kidneys, measuring up to 7 mm on the right on image 38. No nephrolithiasis or hydronephrosis is seen on either side. There is a cortical cyst in the lateral right kidney measuring 1.1 cm on image 50. There is moderate asymmetric left renal atrophy with some cortical thinning. A 2.4 cm complex cyst or isodense mass cannot be excluded in the upper pole of the left kidney on images 54 [address] PELVIS: A normal appendix is seen on image 76. The pelvic small bowel loops, uterus, ovaries and largely decompressed urinary bladder are unremarkable. There is mild colonic diverticulosis. Mild pelvic floor laxity is noted. No inflammatory fat stranding, free fluid, loculated fluid or free air is seen in the abdomen or pelvis. There is advanced degenerative disc disease at L3-S1 with fairly prominent bilateral neural foraminal stenosis at L5-S1. No acute osseous abnormality or suspicious bony lesion is seen. CT/CT abdomen pelvis wo con IMPRESSION: 1. No urinary tract calculi or acute findings in the abdomen or pelvis. No specific cause of suprapubic pain is seen. 2. Nonspecific complex cyst or possible renal mass cannot be excluded in the upper pole of the left kidney, incompletely evaluated on this nonenhanced exam. Moderate asymmetric left renal atrophy with some cortical thinning is unchanged and may reflect long-standing left renal artery stenosis. 3. Mild colonic diverticulosis. 4. Dense aortic and iliac arterial calcifications with ectatic infrarenal abdominal aorta measuring 2.6 cm. 5. Normal appendix. Electronically authenticated by: FRANCISCO FRANK Date: 04/24/2023 00:10
[2023-04-23 23:26] LABS: Basophils Absolute Auto 0.1 10^3/uL (0.0-0.1); Eosinophils Percent Auto 0.3 % (0.9-7.0); Hematocrit 46.2 % (36.0-48.0); Hemoglobin 15.2 g/dL (12.0-16.0); Immature Granulocytes Abs Auto 0.01 10^3/uL (0.00-0.03); Immature Granulocytes Pct Auto 0.2 % (0.0-0.5); Lymphocytes Absolute Auto 1.8 10^3/uL (1.2-3.8); Lymphocytes Percent Auto 29.5 % (20.5-60.0); Mean Corpuscular HGB Conc 32.9 g/dL (29.9-35.2); Mean Corpuscular Volume 94.3 fL (81.0-99.0); Mean Platelet Volume 9.7 fL (9.5-13.5); Monocytes Absolute Auto 1.1 10^3/uL (0.3-0.8); Monocytes Percent Auto 17.8 % (1.7-12.0); Neutrophils Percent Auto 51.2 % (43.0-75.0); Platelet Count 171 10^3/uL (150-450); Red Cell Distribution Width 13.6 % (11.0-15.0); White Blood Count 5.9 10^3/uL (4.0-11.0)
[2023-04-23 23:45] LABS: Anion Gap 11.6; BUN Creatinine Ratio 10.2; Calcium 9.3 mg/dL (8.5-10.1); Carbon Dioxide 27.1 mmol/L (21.0-32.0); Chloride 105 mmol/L (98-107); Estimated GFR (African America 41 (>=60); Estimated GFR (Non-African Ame 34 (>=60); Glucose 112 mg/dL (74-106); Potassium 3.7 mmol/L (3.5-5.1); Sodium 140 mmol/L (136-145); Troponin I High Sensitivity 8.5 pg/mL (4.0-51.3)
[2023-04-24] VITALS (15 sets, daily range): PULSE 69–90; RESP 12–28; O2SAT 91–97
[2023-04-24] MEDS: KETOROLAC TROMETHAMINE 30 MG/ML VIAL IVP (00:23)
[2023-04-24 01:24] LABS: Bilirubin Urine NEGATIVE (NEGATIVE); Blood Urine SMALL (NEGATIVE); Clarity Urine CLEAR (CLEAR); Color Urine LT. YELLOW (YELLOW); Glucose Urine UA NEGATIVE (NEGATIVE); Ketones Urine NEGATIVE (NEGATIVE); Leukocyte Esterase Urine NEGATIVE (NEGATIVE); Nitrite Urine NEGATIVE (NEGATIVE); Protein Urine NEGATIVE (NEG/TRACE); Urobilinogen Urine 0.2 EU/dL (0.2-1.0)
[2023-04-24 01:25] LABS: Urine Microscopic Indicated YES
[2023-04-24 01:43] LABS: Bacteria Urine NONE SEEN #/HPF (NONE SEEN); Cast Seen? NONE SEEN #/LPF (NONE SEEN); Crystals Seen? None Seen #/HPF (None Seen); Mucus Urine NONE SEEN (NONE SEEN); RBC Urine 0-2 #/HPF (0-2); Squamous Epithelial Cell Urine RARE #/LPF (NONE/RARE); WBC Urine 0-2 #/HPF (NONE SEEN)
[2023-04-24 02:15] LABS: Troponin I High Sensitivity 9.6 pg/mL (4.0-51.3)
== END 2023-04-24 02:39 | disposition home or self-care (01) ==
PROVIDERS: Emergency Provider Internal Medicine; PCP Internal Medicine
DX: R10.9 Unspecified abdominal pain (principal); N28.1 Cyst of kidney, acquired; F17.200 Nicotine dependence, unspecified, uncomplicated
CPT/HCPCS: 36415; 71045; 74176; 80048; 81001; 84484; 85025; 93005; 96374; 99285

== ENCOUNTER 2023-05-23 07:33 | Outpatient (OUT) | payer OTHER, SELFPAY ==
--- NOTE | 2023-05-23 07:36 | US_ITS ---
The [address] [address] Patient Name: SIXTO RICH MRN: [id number] date: 1960 Sex: F Assigned Patient Location: US Current Patient Location: US Accession/Order Number: [id number] Exam Date: 05/23/2023 07:38 Report Date: 05/23/2023 08:53 At the request of: SHAIKH CIARA Procedure: US renal BI EXAMINATION: US renal BI HISTORY: renal cyst, left N28.1 ; chronic bilateral flank pain COMPARISON: CT abdomen pelvis 04/23/2023 TECHNIQUE: Ultrasound examination was performed of the kidneys and urinary bladder. FINDINGS: RIGHT KIDNEY: 8 mm benign-appearing cysts within lateral cortex. No evidence of pelvocaliectasis, mass, or calculi. Moderate cortical thinning, 6 mm in thickness. Normal renal cortical parenchymal echogenicity. Color Doppler demonstrates blood flow within the kidney. Kidney: 10.4 x 5.3 x 4.6 cm LEFT KIDNEY: Moderate atrophy and marked cortical thinning, 3 mm in thickness.. Superior pole 1.4 cm hypoechoic area without appreciable internal blood flow. Small nonobstructing 4 mm stone within inferior pole. Color Doppler demonstrates blood flow within the kidney. Kidney: 7.1 x 3.8 x 3.1 cm BLADDER: No visible wall thickening, mass, or calculi. US/US renal BI IMPRESSION: 1. Left renal atrophy and marked cortical thinning of uncertain etiology. 2. Nonobstructing left nephrolithiasis. 3. Complex cysts versus hypoechoic mass within superior pole of left kidney. Consider follow-up CT abdomen without and with IV contrast to evaluate enhancement characteristics. Alternatively, MRI of the abdomen could be performed at this time or a follow-up ultrasound evaluation in 3 months to document stability. 4. Mild to moderate cortical thinning of right kidney. Electronically authenticated by: CHRISTIANO WADE Date: 05/23/2023 08:53
--- OUTSIDE RECORDS SUMMARY | 2023-05-23 07:36 | XMS_ITS | CCD ---
Author Organization [facility] Care Team Providers Care Renal Technician Name Role Phone Unavailable Primary Care Provider Unavailabl e ALEXANDR AMIN S Referring Unavailable NO FAMILY, PHYSICIAN Primary Care Provider Unava ilable MD Alaina Arce Admit Provider MD Marqeuz Beal Referring Provider DO Rober Wyatt Other Provider DO Ricky Reynoso Attending Provider STAN Hamm Janet Attending Provider DARVIN Byrne Attending Provider [phone] Linn Byrne Unavailable Shaikh Thompson Unavailable Unavailable Unavailable MD Nick Thompson Primary Care Provider [phone] MD Marquez Beal Attending Provider Emigdio PINON, [...] Marquez Jennings Referring Unav ailable McGuinn II, aMrquez Jennings Attending Unav ailable MD Nick Thompson Primary Care Provider [phone] MD Kevyn Sharma Attending Provider [phone] CHARLEE THOMPSONIKH Primary Care Physician [phone] Padmini Sam Unavailable Kevyn Sharma Unavailable FAWWAD, [...] Admitting Unavailable FAWWAD, DUNBAR H Attending Unavailable DONNA, DUNBAR H Primary Care Unavailable EMIGDIO, DR SINGH Admitting Unavailable EMIGDIO, DR SINGH Attending Unavailable FAWWAD, DUNBAR H Primary Care Unavailable GROVES ., DR JENNINGS Consulting Unavailable SUYAPAN, DR SINGH Consulting Unavailable FAWWAD, DUNBAR H Primary Care Unavailable PAY ., [...] Unavailable FAWWAD, DUNBAR H Primary Care [facility] Consulting Unavailable Donna FINNEY [facility] Primary Care Provider [phone] SHARAKOVA, DEBRA Referring Unavailable [facility] Primary Care Unavailable SHARAKOVA, DEBRA Referring Unavailable [facility] Primary Care Unavailable Unavailable Unavailable LAWRENCE OJEDAAR Attending Unavailable [facility] Primary Care Unavailable GUILAWRENCE HALLAR Attending Unavailable FAWWAD, DUNBAR Referring Unavailable [facility] Primary Care Unavailable [facility] Primary Care Unavailable Damion Cheek Attending Unavailable Jaxson Johnson Attending Unavailable Jamie BILLS Attending Unavailable [facility] Primary Care Unavailable [facility] Referring Unavailable [facility] Primary Care Unavailable NGUYỄNTRUDY GAINES E Attending Unavailable [facility] Primary Care Unavailable NGUYỄN TRUDY E Attending Unavailable [facility] Primary Care Unavailable [facility] Primary Care Unavailable NGUYỄN TRUDY E Attending Unavailable NGUYỄN, TRUDY E Attending Unavailable [facility] Primary Care Unavailable NGUYỄN TRUDY E Attending Unavailable [facility] Primary Care Unavailable NGUYỄN, TRUDY E Attending Unavailable [facility] Primary Care Unavailable Bj TEJEDA Attending Unavailable [facility] Primary Care Unavailable NGUYỄN TRUDY E Attending Unavailable NGUYỄN, TRUDY E Attending Unavailable [facility] Primary Care Unavailable Frank STAFFORDory Referring Unavailable Jaxson Johnson Admitting Unavailable Jaxson Johnson Attending Unavailable [facility] Primary Care Unavailable Damion Cheek Admitting Unavailable Damion Cheek Attending Unavailable Gabby De Oliveira Attending Unavailable MD Donna [facility] Primary Care Provider [phone] MD Jacques East Admit Provider MD Jacques East Attending Provider [phone] MD Marquez Beal Attending Provider MARQUEZ BEAL Attending Unavailable SHAIKH THOMPSON Primary Care Unavailable Jacques East Admitting Unavailable Jacques East Attending Unavailable Shaikh Thompson Primary Care Unavailable Marquez Beal Admitting Unavail able Marquez Beal Attending Unavail able Shaikh Thompson Primary Care Unavailable SHAIKH THOMPSON Attending Unavailable SHAIKH THOMPSON Attending Unavailable Allergies Allergy Classification Reported Allergen(s) Allergy Type Date of Onset Reaction(s) Facility (19 sources) Codeine; Translations: [CODEINE] Drug Allergy 5 Swelling, Swelling (finding) [facility] (1 source) Codeine Drug Allergy 2 [facility] Repository Medications Current Medications Medication Drug Class(es) [...] day(s), # 14 cap(s), Refills(s) 0, Pharmacy: [facility]/pharmacy #[id number], 163, cm, 02/10/23 14:52:00 EST, [...] day(s), # 21 cap(s), Refills(s) 0, Pharmacy: [facility]/pharmacy #[id number], 163, cm, 10/15/22 17:40:00 EDT, [...] Active 100 MG PO Twice daily 10 February 14, 2023 12:00am fluticasone propionate 0.05 [...] on above: Take 1 tablet by starr th once daily. 24 hr metoprolol succinate 100 [...] Daily, # 30 cap(s), Refills(s) 2, Pharmacy: [facility] [id number], 163, cm, 06/14/22 13:00:00 EDT, Height/Length Dosing, [...] day(s), # 15 tab(s), Refills(s) 0, Pharmacy: [facility]/pharmacy #[id number], 163, cm, 02/10/23 14:52:00 EST, [...] (17 sources) Dihydropyridine Calcium Channel Mitch Start: End: 3 take 10 mg by mouth [...] 03-12-2023 AST [Catalytic activity/Vol] 20 U/L Normal [facility] Comment on above: Order Comment: PT FA STED 121 HOURS Performed By: #### A ST, LIPID, BMP #### [facility] [address] Aspartate aminotransferase [ Enzymatic activity/volume] in Serum or PlasmaOrdered By: Marquez Beal on 03-12-2023 AST [Catalytic activity/Vol] 20 U/L [facility] Basic Metabolic Panelon 02-19 Anion gap [Moles/Vol] 8.4 mmol/L Normal 6.0-15.0 [facility] Comment on above: Order Comment: PT FA STED 121 HOURS Performed By: #### A ST, LIPID, BMP #### [facility] [address] [place] [id number] [place] Calcium [Mass/Vol] 9.8 mg/dL Normal 8.6-10.3 [facility] Comment on above: Order Comment: PT FA STED 121 HOURS Performed By: #### A ST, LIPID, BMP #### [facility] [address] [place] [id number] [place] Chloride [Moles/Vol] 108 mmol/L High 98-107 [facility] Comment on above: Order Comment: PT FA STED 121 HOURS Performed By: #### A ST, LIPID, BMP #### [facility] [address] [place] [address] [place] CO2 [Moles/Vol] 30.0 mmol/L Normal 21.0-31.0 [facility] Comment on above: Order Comment: PT FA STED 121 HOURS Performed By: #### A ST, LIPID, BMP #### [facility] [address] [place] [address] [place] Creatinine [Mass/Vol] 1.39 mg/dL High 0.60-1.20 [facility] Comment on above: Order Comment: PT FA STED 121 HOURS Performed By: #### A ST, LIPID, BMP #### [facility] [address] [place] [address] [place] GFR/1.73 sq M.predicted MDRD (S/P/Bld) [Vol rate/Area] 43.442 mL/min/{1.73_m2} Normal [facility] Comment on above: Order Comment: PT FA STED 121 HOURS Performed By: #### A ST, LIPID, BMP #### [facility] [address] [place] [id number] [place] Glucose [Mass/Vol] 93 mg/dL Normal 70-100 [facility] Comment on above: Order Comment: PT FA STED 121 HOURS Result Comment: [place] om Glucose Reference Range is dependent on time and content of last meal. Glucose of more than 200 mg/dL in a nonstressed, ambulatory subject supports the diagnosis of Diabetes Mellitus. ADA recommended reference range Performed By: #### A ST, LIPID, BMP #### [facility] [address] [place] [id number] [place] Potassium [Moles/Vol] 5.4 mmol/L High 3.5-5.1 [facility] Comment on above: Order Comment: PT FA STED 121 HOURS Performed By: #### A ST, LIPID, BMP #### [facility] [address] [place] [id number] [place] Sodium [Moles/Vol] 141 mmol/L Normal 136-145 [facility] Comment on above: Order Comment: PT FA STED 121 HOURS Performed By: #### A ST, LIPID, BMP #### [facility] [address] [place] [address] [place] Urea nitrogen [Mass/Vol] 18 mg/dL Normal 7-25 [facility] Comment on above: Order Comment: PT FA STED 121 HOURS Performed By: #### A ST, LIPID, BMP #### [facility] [address] [place] [address] [place] Calcium [Mass/volume] in Ser um or PlasmaOrdered By: Marquez Beal on 03-12-2023 Calcium [Mass/Vol] 9.8 mg/dL 8.6-10.3 [facility] Carbon dioxide, total [Moles /volume] in Serum or PlasmaOrdered By: Marquez Beal on 03-12-2023 CO2 [Moles/Vol] 30.0 mmol/L 21.0-31.0 [facility] Chloride [Moles/volume] in S oralia or PlasmaOrdered By: Marquez Beal on 03-12-2023 Chloride [Moles/Vol] 108 mmol/L 98-107 [facility] Cholesterol [Mass/volume] in Serum or PlasmaOrdered By: Marquez Beal on 03-12-2023 Cholesterol [Mass/Vol] 171 mg/dL 140-200 [facility] Comment on above: Chol less than 200 m g/dl low riskChol 201-239 mg/dl borderline riskChol 240 mg/dl and greater high risk Cholesterol in LDL Calc [Mas s/Vol]Ordered By: Marquez Beal on 03-12-2023 Cholesterol in LDL [Mass/Vol] 93 mg/dL 0-100 [facility] Comment on above: LDL ATP III CLASSIFI CATIONLDL less than 100 mg/dL OptimalLDL 100-129 mg/dL Near or above optimalLDL 130-159 mg/dL Borderline highLDL 160-189 mg/dL HighLDL greater than 189 mg/dL Very high Cholesterol in VLDL Calc [Ma ss/Vol]Ordered By: Marquez Beal on 03-12-2023 Cholesterol in VLDL [Mass/Vol] 33 mg/dL [facility] Creatinine [Mass/volume] in Serum or PlasmaOrdered By: Marquez Beal on 03-12-2023 Creatinine [Mass/Vol] 1.39 mg/dL 0.60-1.20 [facility] Glucose [Mass/volume] in Ser um or PlasmaOrdered By: Marquez Beal on 03-12-2023 Glucose [Mass/Vol] 93 mg/dL 70-100 [facility] Comment on above: ADA recommended refe rence rangeRandom Glucose Reference Range is dependent on time and content of last meal. Glucose of more than 200 mg/dL in a nonstressed, ambulatory subject supports the diagnosis of Diabetes Mellitus. Lipid Panelon 03-12-2023 Cholesterol [Mass/Vol] 171 mg/dL Normal 140-200 [facility] Comment on above: Order Comment: PT FA STED 121 HOURS Result Comment: Chol less than 200 mg/dl low risk Chol 201-239 mg/dl borderline risk Chol 240 mg/dl and greater high risk Performed By: #### A ST, LIPID, BMP #### [facility] [address] [place] [address] [place] Cholesterol in HDL [Mass/Vol] 45 mg/dL Normal 23-92 [facility] Comment on above: Order Comment: PT FA STED 121 HOURS Result Comment: HDL CHOL ATP-III CLASSIFICATION Cardiovascular Risk HDL > or equal to 60 mg/dL LOW HDL < 40 mg/dL HIGH Performed By: #### A ST, LIPID, BMP #### [facility] [address] Cholesterol.total/Chol esterol in HDL [Mass ratio] 3.8 {ratio} Normal <5.0 [facility] Comment on above: Order Comment: PT FA STED 121 HOURS Result Comment: PERF ORMED BY: [facility] [address] [facility] [place] [address] PATHOLOGIST LANDSCAPE DRAFTER JERAMY CALDWELL M.D. Performed By: #### A ST, LIPID, BMP #### [facility] [address] LDL Cholesterol,Calculated 93 mg/dL Normal 0-100 [facility] Comment on above: Order Comment: PT FA STED 121 HOURS Result Comment: LDL ATP III CLASSIFICATION LDL less than 100 mg/dL Optimal LDL 100-129 mg/dL Near or above optimal LDL 130-159 mg/dL Borderline high LDL 160-189 mg/dL High LDL greater than 189 mg/dL Very high Performed By: #### A ST, LIPID, BMP #### [facility] [address] Triglyceride w/Reflex 165 mg/dL High 0-149 [facility] Comment on above: Order Comment: PT FA STED 121 HOURS Result Comment: TRIG ATP III CLASSIFICATION TRIG less than 150 mg/dL Normal TRIG 150-199 mg/dL Borderline high TRIG 200-500 mg/dL High TRIG greater than 500 mg/dL Very high Standard traceable to the Center for Disease Conrtrol and Prevention (CDC) test method. Performed By: #### A ST, LIPID, BMP #### [facility] [address] VLDL CHOLESTEROL 33 mg/dL Normal [facility] Comment on above: Order Comment: PT FA STED 121 HOURS Performed By: #### A ST, LIPID, BMP #### [facility] [address] No Panel InformationOrdered By: Marquez Beal on 03-12-2023 Estimated GFR (CKD-EPI) 43.442 mL/Min [facility] Creatinine Clearance (Chem N/A [facility] Potassium [Moles/volume] in Serum or PlasmaOrdered By: Marquez Beal on 03-12-2023 Potassium [Moles/Vol] 5.4 mmol/L 3.5-5.1 [facility] Serum or plasma anion gap de terminationOrdered By: Marquez Beal on 03-12-2023 Anion gap [Moles/Vol] 8.4 mmol/L 6.0-15.0 [facility] Serum or plasma high density lipoprotein (HDL) cholesterol measurementOrdered By: Marquez Beal on 03-12-2023 Cholesterol in HDL [Mass/Vol] 45 mg/dL [facility] Comment on above: HDL CHOL ATP-III CLA SSIFICATION Cardiovascular RiskHDL > or equal to 60 mg/dL LOWHDL < 40 mg/dL HIGH Serum or plasma total choles terol/high density lipoprotein (HDL) cholesterol mass ratOrdered By: Marquez Beal on 03-12-2023 Cholesterol.total/Chol esterol in HDL [Mass ratio] 3.8 {ratio} <5.0 [facility] Sodium [Moles/volume] in Ser um or PlasmaOrdered By: Marquez Beal on 03-12-2023 Sodium [Moles/Vol] 141 mmol/L 136-145 [facility] Triglyceride [Mass/volume] i n Serum or PlasmaOrdered By: Marquez Beal on 03-12-2023 Triglyceride [Mass/Vol] 165 mg/dL 0-149 [facility] Comment on above: TRIG ATP III CLASSIF ICATIONTRIG less than 150 mg/dL NormalTRIG 150-199 mg/dL Borderline highTRIG 200-500 mg/dL High TRIG greater than 500 mg/dL Very highStandard traceable to the Center for Disease Conrtrol and Prevention (CDC) test method. Urea nitrogen [Mass/volume] in Serum or PlasmaOrdered By: Marquez Beal on 03-12-2023 Urea nitrogen [Mass/Vol] 18 mg/dL 09-11 [facility] Basic Metabolic Panelon 12-2 Anion gap [Moles/Vol] 12.2 mmol/L Normal 6.0-15.0 [facility] Comment on above: Performed By: #### C BC, BMP ####[facility] [id number] [place] [id number] [facility] Calcium [Mass/Vol] 9.4 mg/dL Normal 8.6-10.3 [facility] Comment on above: Performed By: #### C BC, BMP ####[facility] [id number] [place] [id number] [facility] Chloride [Moles/Vol] 103 mmol/L Normal 98-107 [facility] Comment on above: Performed By: #### C BC, BMP ####[place] [address] [place] [id number] [facility] CO2 [Moles/Vol] 26.2 mmol/L Normal 21.0-31.0 [facility] Comment on above: Performed By: #### C BC, BMP ####[place] [address] [place] [address] [facility] Creatinine [Mass/Vol] 1.35 mg/dL High 0.60-1.20 [facility] Comment on above: Performed By: #### C BC, BMP ####[place] [address] [place] [id number] [facility] Creatinine Clr Calc Pharmacy 40.59 [facility] Comment on above: Result Comment: PERF ORMED BY: [facility] [address] [place] [address] PATHOLOGIST LANDSCAPE DRAFTER JERAMY CALDWELL M.D. Performed By: #### C BC, BMP ####[place] [id number] [facility] GFR/1.73 sq M.predicted MDRD (S/P/Bld) [Vol rate/Area] 44.991 mL/min/{1.73_m2} [facility] Comment on above: Performed By: #### C BC, BMP ####[place] [address] [place] [id number] [facility] Glucose [Mass/Vol] 136 mg/dL High 70-100 [facility] Comment on above: Result Comment: [place] Glucose Reference Range is dependent on time and content of last meal. Glucose of more than 200 mg/dL in a nonstressed, ambulatory subject supports the diagnosis of Diabetes Mellitus. ADA recommended reference range Performed By: #### C BC, BMP ####[place] [address] [place] [id number] [facility] Potassium [Moles/Vol] 5.4 mmol/L High 3.5-5.1 [facility] Comment on above: Performed By: #### C BC, BMP ####[facility] [address] [place] [address] [facility] Sodium [Moles/Vol] 136 mmol/L Normal 136-145 [facility] Comment on above: Performed By: #### C JUANITA, BMP ####[facility] [place] [address] [facility] Urea nitrogen [Mass/Vol] 33 mg/dL High 7-25 [facility] Comment on above: Performed By: #### C JUANITA, BMP ####[facility] [place] [address] [facility] Basophils Auto (Bld) [#/Vol] Ordered By: Obaydah Daromar on 02-14-2023 Basophils (Bld) [#/Vol] 0.0 10*3/uL 0.0-0.2 [facility] Basophils/100 WBC Auto (Bld) Ordered By: Obaydah Daromar on 02-14-2023 Basophils/100 WBC (Bld) 0.1 % . [facility] Calcium [Mass/volume] in Ser um or PlasmaOrdered By: Obaydah Daromar on 02-14-2023 Calcium [Mass/Vol] 9.4 mg/dL 8.6-10.3 [facility] Carbon dioxide, total [Moles /volume] in Serum or PlasmaOrdered By: Obaydah Daromar on 02-14-2023 CO2 [Moles/Vol] 26.2 mmol/L 21.0-31.0 [facility] Chloride [Moles/volume] in S oralia or PlasmaOrdered By: Obaydah Daromar on 02-14-2023 Chloride [Moles/Vol] 103 mmol/L 98-107 [facility] Complete Blood Count Auto Di ffon 02-14-2023 Basophils (Bld) [#/Vol] 0.0 10*3/uL Normal 0.0-0.2 [facility] Comment on above: Result Comment: PERF ORMED BY: [facility] [address] [address] PATHOLOGIST LANDSCAPE DRAFTER JIANLAN SUN M.D. Performed By: #### C BC, BMP ####[address] [address] [facility] Basophils/100 WBC (Bld) 0.1 % Normal . [facility] Comment on above: Performed By: #### C BC, BMP ####[address] [address] [facility] Eosinophils (Bld) [#/Vol] 0.0 10*3/uL Normal 0.0-0.45 [facility] Comment on above: Performed By: #### C BC, BMP ####[address] [address] [facility] Eosinophils/100 WBC (Bld) 0.0 % Normal . [facility] Comment on above: Performed By: #### C BC, BMP ####[address] [address] [facility] Erythrocyte distribution width (RBC) [Ratio] 14.6 % Normal 11.9-15.3 [facility] Comment on above: Performed By: #### C BC, BMP ####[address] [address] [facility] Hematocrit (Bld) [Volume fraction] 44.5 % Normal 34.0-46.4 [facility] Comment on above: Performed By: #### C BC, BMP ####[address] [address] [facility] Hemoglobin (Bld) [Mass/Vol] 15.1 g/dL Normal 11.8-15.4 [facility] Comment on above: Performed By: #### C BC, BMP ####[address] [address] [facility] Lymphocytes (Bld) [#/Vol] 1.0 10*3/uL Normal 1.00-4.8 [facility] Comment on above: Performed By: #### C BC, BMP ####[address] [address] [facility] Lymphocytes/100 WBC (Bld) 7.6 % Normal . [facility] Comment on above: Performed By: #### C BC, BMP ####[place] [id number] [facility] MCH (RBC) [Entitic mass] 30.6 pg Normal 24.7-34.3 [facility] Comment on above: Performed By: #### C BC, BMP ####[place] [id number] [facility] MCV (RBC) [Entitic vol] 90.4 fL Normal 80-100 [facility] Comment on above: Performed By: #### C BC, BMP ####[place] [id number] [facility] Mean Corpuscular HGB Conc 33.9 g/dL Normal 32.0-35.0 [facility] Comment on above: Performed By: #### C BC, BMP ####[place] [id number] [facility] Monocytes (Bld) [#/Vol] 0.6 10*3/uL Normal 0.0-0.8 [facility] Comment on above: Performed By: #### C BC, BMP ####[place] [id number] [facility] Monocytes/100 WBC (Bld) 4.7 % Normal . [facility] Comment on above: Performed By: #### C BC, BMP ####[place] [id number] [facility] Neutrophils (Bld) [#/Vol] 11.1 10*3/uL High 1.8-7.7 [facility] Comment on above: Performed By: #### C BC, BMP ####[place] [id number] [facility] Neutrophils/100 WBC (Bld) 87.6 % Normal . [facility] Comment on above: Performed By: #### C BC, BMP ####[place] [id number] [facility] NRBC% 0.0 /100{WBC} Normal 0-0.5 [facility] Comment on above: Performed By: #### C BC, BMP ####[facility] [place] [address] [facility] Platelet mean volume (Bld) [Entitic vol] 8.5 fL Normal 6.3-10.7 [facility] Comment on above: Performed By: #### C BC, BMP ####[facility] [place] [address] [facility] Platelets (Bld) [#/Vol] 220 10*3/uL Normal 150-450 [facility] Comment on above: Performed By: #### C JUANITA, BMP ####[place] [address] [place] [address] [facility] RBC (Bld) [#/Vol] 4.92 10*6/uL Normal 3.60-5.00 [facility] Comment on above: Performed By: #### C JUANITA, BMP ####[place] [address] [place] [address] [facility] WBC (Bld) [#/Vol] 12.7 10*3/uL High 3.8-11.6 [facility] Comment on above: Performed By: #### C JUANITA, BMP ####[place] [id number] [facility] Creatinine [Mass/volume] in Serum or PlasmaOrdered By: Obpatriciadah Antioneomar on 02-14-2023 Creatinine [Mass/Vol] 1.35 mg/dL 0.60-1.20 [facility] Eosinophils Auto (Bld) [#/Vo l]Ordered By: Obaydah Daromar on 02-14-2023 Eosinophils (Bld) [#/Vol] 0.0 10*3/uL 0.0-0.45 [facility] Eosinophils/100 WBC Auto (Bl d)Ordered By: Obaydah Daromar on 02-14-2023 Eosinophils/100 WBC (Bld) 0.0 % . [facility] Erythrocyte distribution wid th Auto (RBC) [Ratio]Ordered By: Obaydah Daromar on 02-14-2023 Erythrocyte distribution width (RBC) [Ratio] 14.6 % 11.9-15.3 [facility] Glucose [Mass/volume] in Ser um or PlasmaOrdered By: Jacques East on 02-14-2023 Glucose [Mass/Vol] 136 mg/dL 70-100 [facility] Comment on above: ADA recommended refe rence rangeRandom Glucose Reference Range is dependent on time and content of last meal. Glucose of more than 200 mg/dL in a nonstressed, ambulatory subject supports the diagnosis of Diabetes Mellitus. Hematocrit Auto (Bld) [Volum e fraction]Ordered By: Jacques East on 02-14-2023 Hematocrit (Bld) [Volume fraction] 44.5 % 34.0-46.4 [facility] Hemoglobin [Mass/volume] in BloodOrdered By: Jacques East on 02-14-2023 Hemoglobin (Bld) [Mass/Vol] 15.1 g/dL 11.8-15.4 [facility] Leukocytes [#/volume] correc elliot for nucleated erythrocytes in Blood by Automated counOrdered By: Jacques East on 02-14-2023 WBC corrected for nucl RBC Auto (Bld) [#/Vol] 12.7 10*3/uL 3.8-11.6 [facility] Lymphocytes Auto (Bld) [#/Vo l]Ordered By: Jacques East on 02-14-2023 Lymphocytes (Bld) [#/Vol] 1.0 10*3/uL 1.00-4.8 [facility] Lymphocytes/100 WBC Auto (Bl d)Ordered By: Jacques East on 02-14-2023 Lymphocytes/100 WBC (Bld) 7.6 % . [facility] MCH Auto (RBC) [Entitic mass ]Ordered By: Jacques East on 02-14-2023 MCH (RBC) [Entitic mass] 30.6 pg 24.7-34.3 [facility] MCHC Auto (RBC) [Mass/Vol]Or dered By: Jacques East on 02-14-2023 MCHC (RBC) [Mass/Vol] 33.9 g/dL 32.0-35.0 [facility] MCV Auto (RBC) [Entitic vol] Ordered By: Jacques Talbotomar on 02-14-2023 MCV (RBC) [Entitic vol] 90.4 fL 80-100 [facility] Monocytes Auto (Bld) [#/Vol] Ordered By: Obaydah Daromar on 02-14-2023 Monocytes (Bld) [#/Vol] 0.6 10*3/uL 0.0-0.8 [facility] Monocytes/100 WBC Auto (Bld) Ordered By: Obaydah Daromar on 02-14-2023 Monocytes/100 WBC (Bld) 4.7 % . [facility] Neutrophils Auto (Bld) [#/Vo l]Ordered By: Obpatriciadaenrique Talbotomar on 02-14-2023 Neutrophils (Bld) [#/Vol] 11.1 10*3/uL 1.8-7.7 [facility] Neutrophils/100 WBC Auto (Bl d)Ordered By: Obpatriciadaenrique Talbotomar on 02-14-2023 Neutrophils/100 WBC (Bld) 87.6 % . [facility] No Panel InformationOrdered By: Obreinaldo Talbotomar on 02-14-2023 Estimated GFR (CKD-EPI) 44.991 mL/Min [facility] Creatinine Clearance (Chem 40.59 [facility] Nucleated erythrocytes [Pres ence] in Blood by Automated countOrdered By: Jacques Talbotomar on 02-14-2023 Nucleated RBC Auto Ql (Bld) 0.0 /100{WBC} 0-0.5 [facility] Platelet mean volume Auto (B ld) [Entitic vol]Ordered By: Obpatriciadah Daromar on 02-14-2023 Platelet mean volume (Bld) [Entitic vol] 8.5 fL 6.3-10.7 [facility] Platelets Auto (Bld) [#/Vol] Ordered By: Obpatriciadah Daromar on 02-14-2023 Platelets (Bld) [#/Vol] 220 10*3/uL 150-450 [facility] Potassium [Moles/volume] in Serum or PlasmaOrdered By: Obpatriciadah Antioneomar on 02-14-2023 Potassium [Moles/Vol] 5.4 mmol/L 3.5-5.1 [facility] RBC Auto (Bld) [#/Vol]Ordere d By: Obaydah Daromar on 02-14-2023 RBC (Bld) [#/Vol] 4.92 10*6/uL 3.60-5.00 [facility] Serum or plasma anion gap de terminationOrdered By: Obaydah Daromar on 02-14-2023 Anion gap [Moles/Vol] 12.2 mmol/L 6.0-15.0 [facility] Sodium [Moles/volume] in Ser um or PlasmaOrdered By: Obaydah Daromar on 02-14-2023 Sodium [Moles/Vol] 136 mmol/L 136-145 [facility] Urea nitrogen [Mass/volume] in Serum or PlasmaOrdered By: Obaydah Daromar on 02-14-2023 Urea nitrogen [Mass/Vol] 33 mg/dL 7-25 [facility] WBC Auto (Bld) [#/Vol]Ordere d By: Obaydah Daromar on 02-14-2023 WBC (Bld) [#/Vol] 12.7 10*3/uL 3.8-11.6 [facility] Alanine aminotransferase [En zymatic activity/volume] in Serum or PlasmaOrdered By: Obpatriciadah Daromar on 02-13-2023 ALT [Catalytic activity/Vol] 16 U/L 7-52 [facility] Albumin [Mass/volume] in Ser um or Plasma by Bromocresol green (BCG) dye binding methoOrdered By: Obaydah Daromar on 02-13-2023 Albumin BCG dye [Mass/Vol] 4.0 g/dL 3.5-5.7 [facility] Alkaline phosphatase [Enzyma tic activity/volume] in Serum or PlasmaOrdered By: Obaydah Daromar on 02-13-2023 ALP [Catalytic activity/Vol] 57 U/L 34-104 [facility] Aspartate aminotransferase [ Enzymatic activity/volume] in Serum or PlasmaOrdered By: Obaydah Daromar on 02-13-2023 AST [Catalytic activity/Vol] 22 U/L 13-39 [facility] Bilirubin.total [Mass/volume ] in Serum or PlasmaOrdered By: Jacques East on 02-13-2023 Bilirubin [Mass/Vol] 0.6 mg/dL 0.3-1.0 [facility] Complete Blood Count Auto Di ffon 02-13-2023 Basophils (Bld) [#/Vol] 0.0 10*3/uL Normal 0.0-0.2 [facility] Comment on above: Result Comment: PERF ORMED BY: [facility] [address] [facility] [place] [address] PATHOLOGIST [employer]SC[employer] D[employer]TER JERAMY CALDWELL M.D. Performed By: #### C MG JUANITA, CMP ####[address] Basophils/100 WBC (Bld) 0.2 % Normal . [facility] Comment on above: Performed By: #### C JUANITA MG, CMP ####[address] Eosinophils (Bld) [#/Vol] 0.0 10*3/uL Normal 0.0-0.45 [facility] Comment on above: Performed By: #### MG TANYA, CMP ####[address] Eosinophils/100 WBC (Bld) 0.0 % Normal . [facility] Comment on above: Performed By: #### C JUANITA MG, CMP ####[address] Erythrocyte distribution width (RBC) [Ratio] 14.4 % Normal 11.9-15.3 [facility] Comment on above: Performed By: #### Kait GRANT MG, CMP ####[address] Hematocrit (Bld) [Volume fraction] 43.2 % Normal 34.0-46.4 [facility] Comment on above: Performed By: #### C JUANITA MG, CMP ####[place] [address] [place] Hemoglobin (Bld) [Mass/Vol] 14.6 g/dL Normal 11.8-15.4 [facility] Comment on above: Performed By: #### C JUANITA MG, CMP ####[place] [id number] [address] Lymphocytes (Bld) [#/Vol] 2.7 10*3/uL Normal 1.00-4.8 [facility] Comment on above: Performed By: #### C JUANITA MG, CMP ####[address] Lymphocytes/100 WBC (Bld) 18.3 % Normal . [facility] Comment on above: Performed By: #### C JUANITA MG, CMP ####[address] MCH (RBC) [Entitic mass] 30.5 pg Normal 24.7-34.3 [facility] Comment on above: Performed By: #### C JUANITA MG, CMP ####[address] MCV (RBC) [Entitic vol] 90.1 fL Normal 80-100 [facility] Comment on above: Performed By: #### C JUANITA MG, CMP ####[address] Mean Corpuscular HGB Conc 33.8 g/dL Normal 32.0-35.0 [facility] Comment on above: Performed By: #### C JUANITA MG, CMP ####[address] Monocytes (Bld) [#/Vol] 1.2 10*3/uL High 0.0-0.8 [facility] Comment on above: Performed By: #### C BC MG, CMP ####[place] [id number] [facility] Monocytes/100 WBC (Bld) 7.9 % Normal . [facility] Comment on above: Performed By: #### C BC MG, CMP ####[facility] [place] [address] [facility] Neutrophils (Bld) [#/Vol] 11.0 10*3/uL High 1.8-7.7 [facility] Comment on above: Performed By: #### C BC, MG, CMP ####[address] [address] [facility] Neutrophils/100 WBC (Bld) 73.6 % Normal . [facility] Comment on above: Performed By: #### C BC, MG, CMP ####[address] [address] [facility] NRBC% 0.1 /100{WBC} Normal 0-0.5 [facility] Comment on above: Performed By: #### C BC, MG, CMP ####[address] [address] [facility] Platelet mean volume (Bld) [Entitic vol] 7.8 fL Normal 6.3-10.7 [facility] Comment on above: Performed By: #### C BC, MG, CMP ####[address] [address] [facility] Platelets (Bld) [#/Vol] 212 10*3/uL Normal 150-450 [facility] Comment on above: Performed By: #### C BC, MG, CMP ####[address] [address] [facility] RBC (Bld) [#/Vol] 4.80 10*6/uL Normal 3.60-5.00 [facility] Comment on above: Performed By: #### C BC, MG, CMP ####[address] [address] [facility] WBC (Bld) [#/Vol] 14.9 10*3/uL High 3.8-11.6 [facility] Comment on above: Performed By: #### C BC, MG, CMP ####[address] [address] [facility] Comprehensive Metabolic Pane franco 02-13-2023 Albumin [Mass/Vol] 4.0 g/dL Normal 3.5-5.7 [facility] Comment on above: Performed By: #### C BC MG, CMP ####[address] Albumin/Globulin [Mass ratio] 1.6 {ratio} Normal [facility] Comment on above: Performed By: #### C BC MG, CMP ####[place] [id number] [facility] ALP [Catalytic activity/Vol] 57 U/L Normal 34-104 [facility] Comment on above: Performed By: #### C JUANITA MG, CMP ####[address] ALT [Catalytic activity/Vol] 16 U/L Normal 7-52 [facility] Comment on above: Performed By: #### C BC MG, CMP ####[place] [id number] [facility] Anion gap [Moles/Vol] 9.4 mmol/L Normal 6.0-15.0 [facility] Comment on above: Performed By: #### C BC MG, CMP ####[address] AST [Catalytic activity/Vol] 22 U/L Normal 13-39 [facility] Comment on above: Performed By: #### C BC MG, CMP ####[place] [id number] [facility] Bilirubin [Mass/Vol] 0.6 mg/dL Normal 0.3-1.0 [facility] Comment on above: Performed By: #### C BC MG, CMP ####[place] [id number] [facility] Calcium [Mass/Vol] 9.2 mg/dL Normal 8.6-10.3 [facility] Comment on above: Performed By: #### C BC, MG, CMP ####[place] [id number] [place] Chloride [Moles/Vol] 105 mmol/L Normal 98-107 [facility] Comment on above: Performed By: #### C BC, MG, CMP ####[address] CO2 [Moles/Vol] 27.1 mmol/L Normal 21.0-31.0 [facility] Comment on above: Performed By: #### C BC, MG, CMP ####[address] Creatinine [Mass/Vol] 1.45 mg/dL High 0.60-1.20 [facility] Comment on above: Performed By: #### C BC, MG, CMP ####[address] Creatinine Clr Calc Pharmacy 37.90 [facility] Comment on above: Performed By: #### C BC, MG, CMP ####[address] GFR/1.73 sq M.predicted MDRD (S/P/Bld) [Vol rate/Area] 41.294 mL/min/{1.73_m2} [facility] Comment on above: Performed By: #### C BC, MG, CMP ####[address] Globulin (S) [Mass/Vol] 2.5 g/dL [facility] Comment on above: Performed By: #### C BC, MG, CMP ####[address] Glucose [Mass/Vol] 92 mg/dL Normal 70-100 [facility] Comment on above: Result Comment: [place] Glucose Reference Range is dependent on time and content of last meal. Glucose of more than 200 mg/dL in a nonstressed, ambulatory subject supports the diagnosis of Diabetes Mellitus. ADA recommended reference range Performed By: #### C BC, MG, CMP ####[address] Potassium [Moles/Vol] 4.5 mmol/L Normal 3.5-5.1 [facility] Comment on above: Performed By: #### C BC, MG, CMP ####[place] [address] [place] [id number] [facility] Protein [Mass/Vol] 6.5 g/dL Normal 6.4-8.9 [facility] Comment on above: Performed By: #### C BC, MG, CMP ####[place] [address] [place] [id number] [facility] Sodium [Moles/Vol] 137 mmol/L Normal 136-145 [facility] Comment on above: Performed By: #### C BC, MG, CMP ####[place] [address] [address] Urea nitrogen [Mass/Vol] 28 mg/dL High 7-25 [facility] Comment on above: Performed By: #### C BC, MG, CMP ####[place] [address] [place] [id number] [facility] Globulin Calc (S) [Mass/Vol] Ordered By: Obaydah Daromar on 02-13-2023 Globulin (S) [Mass/Vol] 2.5 g/dL [facility] Magnesiumon 02-13-2023 Magnesium [Mass/Vol] 1.8 mg/dL Low 1.9-2.7 [facility] Comment on above: Result Comment: PERF ORMED BY: [facility] [address] [place] [id number] PATHOLOGIST [employer]SC[employer] DRAFTER JERAMY CALDWELL M.D. Performed By: #### C BC, MG, CMP ####[place] [id number] [place] [id number] [facility] Magnesium [Mass/volume] in S oralia or PlasmaOrdered By: Obaydah Daromar on 02-13-2023 Magnesium [Mass/Vol] 1.8 mg/dL 1.9-2.7 [facility] Protein [Mass/volume] in Ser um or PlasmaOrdered By: Obaydah Daromar on 02-13-2023 Protein [Mass/Vol] 6.5 g/dL 6.4-8.9 [facility] Serum or plasma albumin/glob ulin mass ratioOrdered By: Jacques East on 02-13-2023 Albumin/Globulin [Mass ratio] 1.6 {ratio} [facility] Activated partial thrombopla stin time (aPTT) in platelet poor plasma by coagulation aOrdered By: Sally Valle on 02-12-2023 aPTT Coag (PPP) [Time] 25.6 s 25.1-36.5 [facility] Comment on above: A hematocrit value g reater than 55% may lead to inaccurate results in coagulation testing. Patients having hematocrit values >55% require a special collection tube for coagulation studies. Please contact the laboratory at [phone] for redraw instructions. Aerobic Cultureon 02-12-2023 Aerobic Culture Light Normal Respira tory Zoe 2 Days Gram Stain Result Rare Epithelial Cells 1+ White Blood Cells Rare Gram Positive Coccobacilli PERFORMED BY: [place] [address] PATHOLOGIST [employer]SCAPE DRAFTER JERAMY CALDWELL M.D. Normal [facility] Comment on above: Performed By: #### A [facility], #### [address] Auth for Release of Medical Recordson 02-12-2023 Auth for Release of Medical Records [id number] Normal [facility] Automated erythrocytes count in urine sediment (number/area)Ordered By: Jacques East on 02-12-2023 RBC Auto (Urine sed) [#/Area] 1-2 [HPF] 0-4 [facility] Automated leukocytes count i n urine sediment (number/area)Ordered By: Jacques East on 02-12-2023 WBC Auto (Urine sed) [#/Area] 3-4 [HPF] 0-4 [facility] Bilirubin Test strip Ql (U)O rdered By: Jacques East on 02-12-2023 Bilirubin Ql (U) Negative Negative [facility] C Urineon 02-12-2023 Bacteria identified Cx [...] Locations R1: This test was performed at: [facility], [address] [place] [address], [address] , , Normal [facility] Comment on above: Performed By: #### 2 [id number] #### [facility] [address] [place] [id number] Coagulation Profileon 2022 aPTT Coag (Bld) [Time] 25.6 s Normal 25.1-36.5 [facility] Comment on above: Result Comment: A he matocrit value greater than 55% may lead to inaccurate results in coagulation testing. Patients having hematocrit values >55% require a special collection tube for coagulation studies. Please contact the laboratory at [phone] for redraw instructions. PERFORMED BY: [facility] [address] [place] [address] PATHOLOGIST [employer]SCAPE DRAFTER JERAMY CALDWELL M.D. Performed By: #### C JUANITA PP, CMP ####[place] [address] [place] [address] [facility] INR Coag (PPP) [Relative time] 0.9 {INR} Normal [facility] Comment on above: Result Comment: INR Therapeutic [...] 3 - 4.5 Performed By: #### C JUANITA, PP, CMP ####[place] [address] [place] [address] [place] PT Coag (PPP) [Time] 10.9 s Normal 9.0-12.9 [facility] Comment on above: Result Comment: A he matocrit value greater than 55% may lead to inaccurate results in coagulation testing. Patients having hematocrit values >55% require a special collection tube for coagulation studies. Please contact the laboratory at [phone] for redraw instructions. Performed By: #### C BC, PP, CMP ####[facility] [address] [place] [address] [place] Color Auto (U)Ordered By: [place] East on 02-12-2023 Color (U) Yellow Yellow [facility] Complete Blood Count Auto Di ffon 02-12-2023 Basophils (Bld) [#/Vol] 0.0 10*3/uL Normal 0.0-0.2 [facility] Comment on above: Result Comment: PERF ORMED BY: [facility] [address] [place] [address] PATHOLOGIST [employer]SCAPE DRAFTER JERAMY CALDWELL M.D. Performed By: #### C BC, PP, CMP #### [facility] [address] Basophils/100 WBC (Bld) 0.2 % Normal . [facility] Comment on above: Performed By: #### C BC, PP, CMP #### [facility] [address] Eosinophils (Bld) [#/Vol] 0.0 10*3/uL Normal 0.0-0.45 [facility] Comment on above: Performed By: #### C BC, PP, CMP #### [facility] [address] [place] [address] [place] Eosinophils/100 WBC (Bld) 0.0 % Normal . [facility] Comment on above: Performed By: #### C BC, PP, CMP #### [facility] [address] Erythrocyte distribution width (RBC) [Ratio] 14.6 % Normal 11.9-15.3 [facility] Comment on above: Performed By: #### C BC, PP, CMP #### [address] Hematocrit (Bld) [Volume fraction] 46.1 % Normal 34.0-46.4 [facility] Comment on above: Performed By: #### C BC, PP, CMP #### [address] Hemoglobin (Bld) [Mass/Vol] 15.6 g/dL High 11.8-15.4 [facility] Comment on above: Performed By: #### C BC, PP, CMP #### [address] Lymphocytes (Bld) [#/Vol] 0.6 10*3/uL Low 1.00-4.8 [facility] Comment on above: Performed By: #### C BC, PP, CMP #### [address] Lymphocytes/100 WBC (Bld) 4.0 % Normal . [facility] Comment on above: Performed By: #### C BC, PP, CMP #### [address] MCH (RBC) [Entitic mass] 30.6 pg Normal 24.7-34.3 [facility] Comment on above: Performed By: #### C BC, PP, CMP #### [address] MCV (RBC) [Entitic vol] 90.6 fL Normal 80-100 [facility] Comment on above: Performed By: #### C BC, PP, CMP #### [address] Mean Corpuscular HGB Conc 33.8 g/dL Normal 32.0-35.0 [facility] Comment on above: Performed By: #### C BC, PP, CMP #### [address] Monocytes (Bld) [#/Vol] 0.3 10*3/uL Normal 0.0-0.8 [facility] Comment on above: Performed By: #### C BC, PP, CMP #### [facility] [address] [place] [address] [place] Monocytes/100 WBC (Bld) 1.8 % Normal . [facility] Comment on above: Performed By: #### C BC, PP, CMP #### [facility] [address] [place] [address] [place] Neutrophils (Bld) [#/Vol] 14.1 10*3/uL High 1.8-7.7 [facility] Comment on above: Performed By: #### C BC, PP, CMP #### [facility] [address] [place] [address] [place] Neutrophils/100 WBC (Bld) 94.0 % Normal . [facility] Comment on above: Performed By: #### C BC, PP, CMP #### [facility] [address] [place] [address] [place] NRBC% 0.1 /100{WBC} Normal 0-0.5 [facility] Comment on above: Performed By: #### C BC, PP, CMP #### [facility] [address] [place] [address] [place] Platelet mean volume (Bld) [Entitic vol] 7.9 fL Normal 6.3-10.7 [facility] Comment on above: Performed By: #### C BC, PP, CMP #### [facility] [address] [place] [address] [place] Platelets (Bld) [#/Vol] 236 10*3/uL Normal 150-450 [facility] Comment on above: Performed By: #### C BC, PP, CMP #### [facility] [address] [place] [address] [place] RBC (Bld) [#/Vol] 5.09 10*6/uL High 3.60-5.00 [facility] Comment on above: Performed By: #### C BC, PP, CMP #### [facility] [address] [place] [address] [place] WBC (Bld) [#/Vol] 15.0 10*3/uL High 3.8-11.6 [facility] Comment on above: Performed By: #### C BC, PP, CMP #### [address] Comprehensive Metabolic Pane franco 02-12-2023 Albumin [Mass/Vol] 4.6 g/dL Normal 3.5-5.7 [facility] Comment on above: Performed By: #### C BC, PP, CMP #### [address] Albumin/Globulin [Mass ratio] 1.5 {ratio} Normal [facility] Comment on above: Performed By: #### C JUANITA, PP, CMP #### [address] ALP [Catalytic activity/Vol] 70 U/L Normal 34-104 [facility] Comment on above: Performed By: #### C JUANITA, PP, CMP #### [address] ALT [Catalytic activity/Vol] 19 U/L Normal 7-52 [facility] Comment on above: Performed By: #### C JUANITA, PP, CMP #### [address] Anion gap [Moles/Vol] Not performed Normal 6.0-15.0 [facility] Comment on above: Performed By: #### C BC, PP, CMP #### [address] AST [Catalytic activity/Vol] 29 U/L Normal 13-39 [facility] Comment on above: Performed By: #### C BC, PP, CMP #### [address] Bilirubin [Mass/Vol] 0.5 mg/dL Normal 0.3-1.0 [facility] Comment on above: Performed By: #### C BC, PP, CMP #### [address] Calcium [Mass/Vol] 9.9 mg/dL Normal 8.6-10.3 [facility] Comment on above: Performed By: #### C BC, PP, CMP #### [facility] [address] Chloride [Moles/Vol] 106 mmol/L Normal 98-107 [facility] Comment on above: Performed By: #### C BC, PP, CMP #### [facility] [address] CO2 [Moles/Vol] 20.4 mmol/L Low 21.0-31.0 [facility] Comment on above: Performed By: #### C BC, PP, CMP #### [facility] [address] Creatinine [Mass/Vol] 1.65 mg/dL High 0.60-1.20 [facility] Comment on above: Performed By: #### C BC, PP, CMP #### [facility] [address] Creatinine Clr Calc Pharmacy 34.03 [facility] Comment on above: Result Comment: PERF ORMED BY: [place] [address] PATHOLOGIST [employer]SCAPE DRAFTER JERAMY CALDWELL M.D. Performed By: #### C BC, PP, CMP #### [facility] [address] GFR/1.73 sq M.predicted MDRD (S/P/Bld) [Vol rate/Area] 35.363 mL/min/{1.73_m2} [facility] Comment on above: Performed By: #### C BC, PP, CMP #### [facility] [address] [place] [address] [place] Globulin (S) [Mass/Vol] 3.1 g/dL [facility] Comment on above: Performed By: #### C BC, PP, CMP #### [facility] [address] [place] [address] [place] Glucose [Mass/Vol] 157 mg/dL High 70-100 [facility] Comment on above: Result Comment: [place] om Glucose Reference Range is dependent on time and content of last meal. Glucose of more than 200 mg/dL in a nonstressed, ambulatory subject supports the diagnosis of Diabetes Mellitus. ADA recommended reference range Performed By: #### C BC, PP, CMP #### [facility] [address] Potassium Normal 3.5-5.1 [facility] Comment on above: Result Comment: Spec imen hemolyzed, redraw requested Performed By: #### C BC, PP, CMP #### [facility] [address] Protein [Mass/Vol] 7.7 g/dL Normal 6.4-8.9 [facility] Comment on above: Performed By: #### C BC, PP, CMP #### [facility] [address] Sodium [Moles/Vol] 140 mmol/L Normal 136-145 [facility] Comment on above: Performed By: #### C BC, PP, CMP #### [place] [address] [place] Urea nitrogen [Mass/Vol] 32 mg/dL High - [facility] Comment on above: Performed By: #### C BC, PP, CMP #### [facility] [address] [place] [address] [place] Dipstick and Microscopicon 1 04-15-2022 Appearance (U) Clear Normal Clear [facility] Comment on above: Order Comment: Name Collection Type:: Clean-Voided Midstream Performed By: #### A DDONUAPLUS #### [facility] [address] [place] [address] [place] Bacteria,Urine None Seen Normal None Seen [facility] Comment on above: Order Comment: Name Collection Type:: Clean-Voided Midstream Performed By: #### A DDONUAPLUS #### [facility] [address] [place] [id number] [place] Bilirubin,Urine Negative Normal Negative [facility] Comment on above: Order Comment: Name Collection Type:: Clean-Voided Midstream Performed By: #### A DDONUAPLUS #### [facility] [address] [place] [address] [place] Color (U) Yellow Normal Yellow [facility] Comment on above: Order Comment: Name Collection Type:: Clean-Voided Midstream Performed By: #### A DDONUAPLUS #### [facility] [address] [place] [address] [place] Glucose Ql (U) Normal Normal Normal [facility] Comment on above: Order Comment: Name Collection Type:: Clean-Voided Midstream Performed By: #### A DDONUAPLUS #### [place] [address] [place] Hyaline Casts,Urine 0-8 Normal 0-8 [facility] Comment on above: Order Comment: Name Collection Type:: Clean-Voided Midstream Result Comment: PERF ORMED BY: [place] [address] PATHOLOGIST [employer]SCAPE DRAFTER JERAMY CALDWELL M.D. Performed By: #### A DDONUAPLUS #### [facility] [address] [place] [address] [place] Ketones Ql (U) Negative Normal Negative [facility] Comment on above: Order Comment: Name Collection Type:: Clean-Voided Midstream Performed By: #### A DDONUAPLUS #### [facility] [address] [place] [address] [place] Leukocyte esterase Test strip Ql (U) 1+ High Negative [facility] Comment on above: Order Comment: Name Collection Type:: Clean-Voided Midstream Performed By: #### A DDONUAPLUS #### [facility] [address] [place] [address] [place] Nitrite,Urine Negative Normal Negative [facility] Comment on above: Order Comment: Name Collection Type:: Clean-Voided Midstream Performed By: #### A DDONUAPLUS #### [facility] [address] [place] [address] [place] Occult Blood,Urine Negative Normal Negative [facility] Comment on above: Order Comment: Name Collection Type:: Clean-Voided Midstream Result Comment: PERF ORMED BY: [place] [address] PATHOLOGIST LANDSCAPE DRAFTER JERAMY CALDWELL M.D. Performed By: #### A DDONUAPLUS #### [address] pH (U) 5.0 [pH] Normal 5.0-9.0 [facility] Comment on above: Order Comment: Name Collection Type:: Clean-Voided Midstream Performed By: #### A DDONUAPLUS #### [address] Protein,Urine Negative Normal Negative [facility] Comment on above: Order Comment: Name Collection Type:: Clean-Voided Midstream Performed By: #### A DDONUAPLUS #### [address] RBC,Urine 1-2 Normal 0-4 [facility] Comment on above: Order Comment: Name Collection Type:: Clean-Voided Midstream Performed By: #### A DDONUAPLUS #### [address] Specificy [place],Urine 1.017 Normal 1.001-1.03 0 [facility] Comment on above: Order Comment: Name Collection Type:: Clean-Voided Midstream Performed By: #### A DDONUAPLUS #### [place] [address] [place] Squamous Epithelial Cell,Urine 0-1 Normal 0-2 [facility] Comment on above: Order Comment: Name Collection Type:: Clean-Voided Midstream Performed By: #### A DDONUAPLUS #### [place] [address] [place] Urobilinogen,Urine Normal Normal Normal [facility] Comment on above: Order Comment: Name Collection Type:: Clean-Voided Midstream Performed By: #### A DDONUAPLUS #### [place] [address] [place] WBC,Urine 3-4 Normal 0-4 [facility] Comment on above: Order Comment: Name Collection Type:: Clean-Voided Midstream Performed By: #### A DDONUAPLUS #### [address] ECG 12 lead ECGon 02-12-2023 ECG 12 lead ECG [facility] Main [place] [address] [place] [address] Electrocardiograph Report Signed Patient: Deysi Hernandez MR#: [id number] : 1960 Acct:[id number] Age/Sex: 62 / F ADM Date: 02/12/23 Loc: Room: [address] [place] [address] Type: ADM IN Attending Dr: Jacques East [...] Signed By Bj Bay DO 02/13 1109 [facility] Gram Stainon 02-12-2023 Microscopic observation Gram stain Nom (Unsp spec) Gram Stain Result Rare Epithelial Cells 1+ White Blood Cells Rare Gram Positive Coccobacilli PERFORMED BY: [place] [address] PATHOLOGIST LANDSCAPE DRAFTER JERAMY CALDWELL M.D. [facility] Comment on above: Performed By: #### A HANNAH #### [facility] [address] Gram stain for investigation of transfusion reactionOrdered By: Jacques East on 02-12-2023 Microscopic observation Gram stain Nom (Unsp spec) [facility] Microscopic observation Gram stain Nom (Unsp spec) 2 Days [facility] INR in Platelet poor plasma by Coagulation assayOrdered By: Sally Valle on 02-12-2023 INR Coag (PPP) [Relative time] 0.9 {INR} [facility] Comment on above: INR Therapeutic Rang e [...] 02-12-2023 Ketones (U) [Mass/Vol] Negative Negative [facility] - UrinalysisOrder ed By: Jacques East on 02-12-2023 Hyaline casts LM Ql (Urine sed) 0-8 [LPF] 0-8 [facility] Magnesiumon 02-12-2023 Magnesium [Mass/Vol] 1.8 mg/dL Low 1.9-2.7 [facility] Comment on above: Result Comment: PERF ORMED BY: [facility] [address] [place] [address] PATHOLOGIST LANDSCAPE DRAFTER JERAMY CALDWELL M.D. Performed By: #### M G ####[facility] Jdr[address] Nitrite Test strip Ql (U)Ord ered By: Jacques East on 02-12-2023 Nitrite Ql (U) Negative Negative [facility] Protein Auto test strip (U) [Mass/Vol]Ordered By: Jacques East on 02-12-2023 Protein (U) [Mass/Vol] Negative Negative [facility] Prothrombin time (PT)Ordered By: Sally Valle on 02-12-2023 PT Coag (PPP) [Time] 10.9 s 9.0-12.9 [facility] Comment on above: A hematocrit value g reater than 55% may lead to inaccurate results in coagulation testing. Patients having hematocrit values >55% require a special collection tube for coagulation studies. Please contact the laboratory at [phone] for redraw instructions. Redraw Potassiumon 3 Potassium [Moles/Vol] 4.4 mmol/L Normal 3.5-5.1 [facility] Comment on above: Order Comment: 1ST S pecimen hemolyzed, redraw requested Result Comment: PERF ORMED BY: [facility] [address] [place] [id number] PATHOLOGIST LANDSCAPE DRAFTER JERAMY CALDWELL M.D. Performed By: #### R EDW K ####[place] [id number] [facility] Specific gravity Auto test s trip (U) [Rel density]Ordered By: Jacques ADMA Biologicshannah on 02-12-2023 Specific gravity (U) [Rel density] 1.017 1.001-1.03 0 [facility] Squamous epithelial cells de tection in urine sediment by light microscopyOrdered By: ID Watchdogreinaldo TalbotWrikehannah on 02-12-2023 Epithelial cells.squamous LM Ql (Urine sed) 0-1 [HPF] 0-2 [facility] Troponin I High Sensitivityo n 02-12-2023 Troponin I High Sensitivity 43.8 pg/mL High 0.0-15.0 [facility] Comment on above: Result Comment: PERF ORMED BY: [facility] [address] [place] [id number] PATHOLOGIST LANDSCAPE DRAFTER JERAMY CALDWELL M.D. Performed By: #### H S TROP ####[place] [id number] [facility] Troponin I High Sensitivity 70.6 pg/mL Off scale high 0.0-15.0 [facility] Comment on above: Result Comment: Crit ical Result : Called to and read back by: BRANDON LEVINE at: 02/12/2023 08:07:31 by:LUCIANO PERFORMED BY: [place] [address] PATHOLOGIST LANDSCAPE DRAFTER JERAMY CALDWELL M.D. Performed By: #### H S TROP ####[facility] Vso[address] Troponin I.cardiac [Mass/vol ume] in Serum or Plasma by Detection limit <= 0.01 ng/Ordered By: Sally Valle on 02-12-2023 Troponin I.cardiac DL <= 0.01 ng/mL [Mass/Vol] 43.8 pg/mL 0.0-15.0 [facility] Urine bacteria detection by automated methodOrdered By: Jacques East on 02-12-2023 Bacteria Auto Ql (U) None seen None Seen [facility] Urine clarity by refractomet ry automatedOrdered By: Jacques East on 02-12-2023 Clarity Refractometry automated (U) Clear Clear [facility] Urine glucose measurement by automated test strip (mass/volume)Ordered By: Jacques East on 02-12-2023 Glucose Auto test strip (U) [Mass/Vol] Normal mg/dL Normal [facility] Urine hemoglobin detection b y automated test stripOrdered By: Jacques Chirinosr on 02-12-2023 Hemoglobin Auto test strip Ql (U) Negative Negative [facility] Urine leukocyte esterase det ection by automated test stripOrdered By: Jacques East on 02-12-2023 Leukocyte esterase Auto test strip Ql (U) 1+ Negative [facility] Urobilinogen Auto test strip (U) [Mass/Vol]Ordered By: Jacques Chirinosr on 02-12-2023 Urobilinogen (U) [Mass/Vol] Normal mg/dL Normal [facility] XR chest 1V portableon 02-12 XR chest 1V portable [facility] [place] [address] XRay Report Signed Patient: Deysi Hernandez MR#: [id number] : 1960 Acct:[id number] Age/Sex: 62 / F ADM Date: 02/12/23 Loc: Room: [address] [place] [address] Type: ADM IN Attending Dr: Jacques East [...] Bj Ma M.D.02/12/2023 12:40 PM Dictation Location: [place] [address] Transcribed By: [facility] 02/12/23 1240 Dictated By: Bj Ma DO 02/12/23 1237 Signed By: 02/12/23 1240 Normal [facility] pH Auto test strip (U)Ordere d By: Jacques East on 02-12-2023 pH (U) 5.0 [pH] 5.0-9.0 [facility] Ambulatory Visit Summaryon 1 04-13-2022 Ambulatory Visit Summary DEYSI HERNANDEZ :1960 Visit Date:02/10/2023 Ambulatory Visit Instructions Your Diagnosis Dysuria Tests Performed Urnls Dip Stick Auto w/o Microscopy POC 57826 Your Care Team Attending Physician - Alex BRIDGES, Jaxson W. Primary Care Physician - DONNA FINNEY, DUNBAR This Is Your Medications List Misc Prescription [...] Urnls Dip Stick Auto w/o Microscopy POC 47024 (02/10/2023) Bilirubin Urine Dipstick - Negative Blood Urine Dipstick - 2+ Moderate Glucose Urine Dipstick - Negative Ketones Urine Dipstick - Negative Leukocytes Urine Dipstick - 1+ Small Nitrite Urine Dipstick - Positive Protein Urine Dipstick - Negative Specific [place] Urine Dipstick - 1.015 Urine Appearance Urine [...] for choosing us for your care. Normal [facility] Auto Diffon 02-10-2023 Basophils/100 WBC (Bld) 1.3 % Normal 0.0-2.0 [facility] Comment on above: Order Comment: Order Added by Discern Expert. Performed By: #### 2 856805, 34047477, 61503974, 1992326, 0424507, 60156992, 46990042 ####[facility] [address] [place] [address] Basophils/Leukocytes Auto (Bld) [Pure # fraction] 0.1 E9/L Normal 0.0-0.2 [facility] Comment on above: Order Comment: Order Added by Discern Expert. Performed By: #### 2 585953, 66673526, 68462846, 0767164, 2975140, 35815027, 21752586 ####[place] [address] [place] [address] Eosinophils/100 WBC (Bld) 1.5 % Normal 0.0-8.0 [facility] Comment on above: Order Comment: Order Added by Discern Expert. Performed By: #### 2 369101, 90142808, 06614066, 7290753, 9688873, 84244462, 39719912 ####[place] [address] [place] [address] Eosinophils/Leukocytes Auto (Bld) [Pure # fraction] 0.1 E9/L Normal 0.0-0.5 [facility] Comment on above: Order Comment: Order Added by Discern Expert. Performed By: #### 2 960309, 29770357, 07977254, 5698419, 3769311, 57005119, 41484675 ####[place] [address] [place] [address] Lymphocytes/100 WBC (Bld) 16.8 % Normal 14.0-50.0 [facility] Comment on above: Order Comment: Order Added by Discern Expert. Performed By: #### 2 411705, 60579308, 37986472, 7269194, 2064396, 49995446, 94736800 ####[place] [address] [place] [address] Lymphocytes/Leukocytes Auto (Bld) [Pure # fraction] 1.6 E9/L Normal 1.0-4.0 [facility] Comment on above: Order Comment: Order Added by Discern Expert. Performed By: #### 2 080716, 31626793, 64611556, 7755245, 1165331, 40212138, 88973569 ####[facility] [address] [place] [address] Monocytes/100 WBC (Bld) 9.8 % Normal 4.0-14.0 [facility] Comment on above: Order Comment: Order Added by Discern Expert. Performed By: #### 2 696458, 55949296, 88651204, 2969040, 9366477, 36935166, 88299306 ####[facility] [address] [place] [address] Monocytes/Leukocytes Auto (Bld) [Pure # fraction] 0.9 E9/L Normal 0.2-1.0 [facility] Comment on above: Order Comment: Order Added by Edmund Expert. Performed By: #### 2 666761, 43001663, 05383411, 1395654, 1764513, 98019906, 81134058 ####[place] [address] [place] [address] Neutrophils/100 WBC (Bld) 70.6 % Normal 36.0-75.0 [facility] Comment on above: Order Comment: Order Added by Edmund Expert. Performed By: #### 2 271654, 95634015, 22018619, 0742807, 3904628, 75996098, 84135161 ####[facility] [address] [place] [address] Neutrophils/Leukocytes Auto (Bld) [Pure # fraction] 6.7 E9/L Normal 2.0-7.5 [facility] Comment on above: Order Comment: Order Added by Edmund Expert. Performed By: #### 2 002035, 50513452, 03791463, 8407010, 8133526, 18325816, 32936360 ####[facility] [address] [place] [address] BMPon 02-10-2023 Anion gap [Moles/Vol] 14 mmol/L Normal 6-16 [facility] Comment on above: Performed By: #### 2 511824, 20287231, 03293566, 1541053, 2769139, 12041368, 30820084 ####[facility] [address] [place] [address] BUN/Creat Ratio 12 No Units Normal 10-20 [facility] Comment on above: Performed By: #### 2 323982, 64717591, 03340268, 7302183, 4449199, 21002888, 66709695 ####[facility] [address] [place] [address] Calcium [Mass/Vol] 9.7 mg/dL Normal 8.9-11.1 [facility] Comment on above: Performed By: #### 2 580520, 32199101, 92977171, 0092155, 4310815, 99234251, 33686322 ####[facility] [address] [place] [address] Chloride [Moles/Vol] 107 mmol/L Normal 101-111 [facility] Comment on above: Performed By: #### 2 730877, 14279907, 00012408, 0034621, 6951274, 12999839, 41741078 ####[facility] [address] [place] [address] CO2 [Moles/Vol] 25 mmol/L Normal 21-31 [facility] Comment on above: Performed By: #### 2 608050, 27924848, 01850579, 1648507, 7798355, 38430329, 22111445 ####[facility] [address] [place] [address] Creatinine [Mass/Vol] 1.4 mg/dL High 0.5-1.3 [facility] Comment on above: Performed By: #### 2 524063, 60530187, 11330495, 2891417, 0894794, 10276415, 62431842 ####[facility] [address] [place] [address] Glucose [Mass/Vol] 84 mg/dL Normal 55-199 [facility] Comment on above: Performed By: #### 2 676198, 85767302, 68368338, 0564100, 3154330, 59998594, 64528320 ####[facility] [address] [place] [address] Potassium [Moles/Vol] 4.8 mmol/L Normal 3.5-5.3 [facility] Comment on above: Performed By: #### 2 742097, 89829711, 62919451, 2927497, 6175762, 72520199, 69754412 ####[facility] [address] [place] [address] Sodium [Moles/Vol] 141 mmol/L Normal 135-145 [facility] Comment on above: Performed By: #### 2 306151, 00431842, 87101094, 2388734, 3655089, 89393074, 21559302 ####[facility] [address] [place] [address] Urea nitrogen [Mass/Vol] 17 mg/dL Normal 5-21 [facility] Comment on above: Performed By: #### 2 421469, 58669378, 48459428, 5518675, 8664442, 61407372, 59840350 ####[facility] [address] [place] [address] BNPon 02-10-2023 Natriuretic peptide B (Bld) [Mass/Vol] 39 pg/mL Normal 5-80 [facility] Comment on above: Performed By: #### 2 752033, 65904822, 79294999, 1814198, 2565863, 25274761, 60554327 ####[facility] [address] [place] [address] CBC w/ Auto Diffon Erythrocyte distribution width (RBC) [Ratio] 14.4 % High 10.9-14.2 [facility] Comment on above: Performed By: #### 2 202262, 29188150, 23482112, 4259469, 1824447, 08148540, 41429542 ####[place] [address] [place] [address] Hematocrit (Bld) [Volume fraction] 50.0 % High 34.0-46.0 [facility] Comment on above: Performed By: #### 2 451965, 72500477, 15097094, 7290547, 1007782, 78115210, 98367124 ####[address] [address] Hemoglobin (Bld) [Mass/Vol] 16.8 g/dL High 12.0-16.0 [facility] Comment on above: Performed By: #### 2 130749, 08574928, 32957402, 6337611, 6651010, 32418840, 12676926 ####[address] [address] MCH (RBC) [Entitic mass] 30.1 pg Normal 27.0-34.0 [facility] Comment on above: Performed By: #### 2 085087, 78424245, 59918011, 4932722, 2473263, 10156976, 71526968 ####[address] [address] MCHC (RBC) [Mass/Vol] 33.7 g/dL Normal 31.4-36.0 [facility] Comment on above: Performed By: #### 2 168002, 46288161, 89268275, 9567650, 1372493, 85041077, 97589581 ####[address] [address] MCV (RBC) [Entitic vol] 89.4 fL Normal 80.0-100.0 [facility] Comment on above: Performed By: #### 2 688217, 85474009, 02979054, 7770321, 0492910, 65127894, 09969989 ####[address] [place] [address] Platelet mean volume (Bld) [Entitic vol] 8.0 fL Normal 6.4-10.8 [facility] Comment on above: Performed By: #### 2 578982, 26375269, 84311458, 6813295, 2213210, 09566838, 45306697 ####[address] [address] Platelets (Bld) [#/Vol] 202.0 E9/L Normal 150.0-500. 0 [facility] Comment on above: Performed By: #### 2 787750, 91595587, 73043494, 9843241, 2510666, 97365625, 69254163 ####[address] [address] RBC (Bld) [#/Vol] 5.6 E12/L Normal 4.3-5.9 [facility] Comment on above: Performed By: #### 2 262528, 50673359, 93427378, 0999142, 6269635, 82219221, 91409957 ####[address] [address] WBC corrected for nucl RBC Auto (Bld) [#/Vol] 9.4 E9/L Normal 4.0-11.0 [facility] Comment on above: Performed By: #### 2 876143, 31153512, 69896260, 4989258, 4895683, 41175781, 38585925 ####[address] [address] CHEMISTRYOrdered By: SYSTEM SYSTEM on 02-10-2023 Anion [...] Sensitivity Troponin I Instructions For Use, Kavita [place], September 2017) Urea nitrogen [Mass/Vol] 17 mg/dL Normal 5 - 21 mg/dL Rem[facility] Urea nitrogen/Creatinine [Mass ratio] 12 mg/mg Normal 10 - 20 [facility] CHEMISTRYOrdered By: Estela Reyna on 02-10-2023 Natriuretic peptide B (Bld) [Mass/Vol] 39 pg/mL Normal 5 - 80 pg/mL [facility] COAGULATIONOrdered By: Veronica Guidry on 02-10-2023 aPTT Coag (PPP) [Time] 29.2 s Normal 25.1 - 36.5 second(s) [facility] Comment on above: Interpretive Data: Kacey diallo 15 days - 4 weeks 1 - 5 months 6 - 11 months 1 - 5 years 6 - 10 years 11 - 17 years PTT Mean: 35.4 (27.6-45.6) Mean: 33.5 (24.8-40.7) Mean: 32.4 (25.1-40.7) Mean: 31.6 (24.0-39.2) Mean: 31.6 (26.9-38.7) Mean: 31.0 (24.6-38.4) Pediatric Reference ranges were obtained from a study by myriam Alejandre. prepared from 1437 samples obtained at 7 different centers using the same coagulation reagent and instrumentation as [facility]. Currently there are no coagulation studies available worldwide for children to 14 days, and no normal ranges. Heparin therapeutic range (represented by Anti-Factor Xa activity of 0.2 - 0.4 U/mL) corresponds to PTT of 56.6 - 109.0 sec. INR Coag (PPP) [Relative time] 1.0 {INR} Invalid Interpretation Code [facility] Comment on above: Interpretive Data: I NR results are specifically intended to assess patients stabilized on long-term Anticoagulation therapy suggested INR s Less Intensive Anticoagulation 2.0 3.0 Conventional Range 3.0 4.5 PT Coag (PPP) [Time] 11.6 s Normal 9.4 - 1 2.5 second(s) [facility] Comment on above: Interpretive Data: [...] the same coagulation reagent and instrumentation as [facility]. Currently there are no coagulation studies available worldwide for children to 14 days, and no normal ranges. Consent for Treatmenton 01-19 Consent for Treatment [id number] Normal [facility] Discharge Instructionson Discharge Instructions [id number] F Normal [facility] ED Clinical Summaryon 2022 ED Clinical Summary (Inserted Image. Neelam ble to display) [address] [address] ED Clinical Summary Person Information Name: DEYSI HERNANDEZ Trav/[facility] Age: 62 Years : 1960 Sex: Female Language: Dutch PCP: SHAIKH THOMPSON MD Marital Status: Visit [...] 02/10/2023 17:12:09 02/10/2023 17:12:09 ADDRESS: [address] [facility] [id number] PHYS DOC NOTES: MEDICAL INFORMATION: Prescriptions Given: New Medications [id number], [address] [place] [address], [place] [id number], [phone] cefdinir (cefdinir 300 mg Cap) 1 Capsules [...] Tablets By Mouth every day. Misc Prescription ([facility] ASPIRIN EC 81 MG TABLET) 0. omeprazole (omeprazole 40 mg Cap-DR) 1 Capsules By Mouth every day. Refills: 2. PATIENT EDUCATION INFORMATION: Instructions: Urinary Tract Infection, Adult, Pyvv-cc-Fjqw; Acute Bronchitis, Adult Follow up: With: Address: When: SHAIKH DONNA [address] [place], [place] [phone] [place] ([place]) In 3 days 02/13/2023 Comments: Follow-up with your primary care provider in 3 to 5 days. If symptoms worsen, do not improve, or new symptoms arise please report back to emergency department for further evaluation. DIAGNOSIS: Bronchitis; UTI (urinary tract infection) Normal [facility] ED Note-Nursingon 02-10-2023 ED Note-Nursing EKG late due to vanessa ent being in the bathroom when called. Normal [facility] ED Note-Physicianon 02-11-20 ED Note-Physician [...] (N39.0: Urin (more content not included)... Normal [facility] Comment on above: Result Comment: Elec tronically Signed By: Raymundo BRIDGES, Keon Francis\.br\Date and Time Signed: 02/10/23 16:31 EST\.br\Electronically Co-Signed By: Gabby De Oliveira M.D.\.esteban\Date and Time Co-Signed: 02/10/23 17:38 EST ED [...] these instructions at home: Medicines ? Take nvts-gtx-tfnmofh and prescription medicines only as told by [...] provider. Document Revised: 09/16/2020 Document Reviewed: 09/16/2020 [employer] Patient Education ? 2022 mii. Pulmonary Medicine Acute Bronchitis, Adult Acute bronchitis [...] The f (more content not included)... Normal [facility] ED Patient Summaryon 023 ED Patient Summary (Inserted Image. Neelam ble to display) [place] [id number] Patient Discharge Instructions Person Information Name: DEYSI HERNANDEZ Age: 62 Years Arrival Date: 02/10/2023 14:37:39 Discharge Diagnosis: Bronchitis; UTI (urinary tract infection) Primary Care Physician: SHAIKH THOMPSON MD Provider Information Primary Provider: Gabby De Oliveira M.D. Advanced Paper Inserter:None The exam and treatment you received in the Emergency Department were for an urgent problem and are not intended as complete care. It is important that you follow up with a doctor, nurse practitioner, or physician?s commercial escrow assistant for ongoing care. If your symptoms [...] With: Address: When: SHAIKH DONNA [address] [place], [place] [phone] Business (1) In 3 days 02/13/2023 Comments: [...] Patient Education Materials: Urinary Tract Infection, Adult, Uitn-ss-Tpnf; Acute Bronchitis, Adult A MESSAGE TO ALL PATIENTS REGARDING OPIOIDS PRESCRIPTION OPIOIDS: WHAT YOU NEED TO KNOW Prescription opioids can be used to help relieve zdvifjqr-rh-dqewpl pain and are often prescribed following a [...] Visit www.cdc.gov/dr (more content not included)... Normal [facility] Family Medicine Office/Clini c Noteon 02-10-2023 Family [...] send her to the emergency department at [facility]. She was offered EMS transfer [...] hurt by (more content not included)... Normal [facility] Comment on above: Result Comment: Elec tronically Signed By: Alex BRIDGES, Jaxson WSasha\.br\Date and Time Signed: 02/10/23 14:46 EST HEMATOLOGYOrdered [...] 3 Influenzae A Ag Negative Normal Negative [facility] Comment on above: Performed By: #### 1 [id number], [id number] #### [facility] [address] [place] [address] Influenzae B Ag Negative Normal Negative [facility] Comment on above: Result Comment: Test sensitivity and specificity vary for age group, specimen type, antigen types, and prevalence of disease. Test results must be evaluated in conjunction with other clinical data available to the physician. Individuals who received nasally administered Influenza A vaccine may have positive test results up to 3 days after vaccination. Performed By: #### 1 [id number], [id number] #### [facility] [address] [place] [address] MICRO OTHER TESTSOrdered By: Trudy Guidry on 02-10-2023 Influenzae A Ag Negative (02/10/23 3:25 PM) Normal Negative [facility] Man Sero Influenzae B Ag Negative 1 (02/10/23 3:25 PM) Normal Negative [facility] Sero Comment on above: Interpretive Data: T [...] NEG [place] (02/10/23 3:25 PM) Normal [facility] Sero Rapid COV Int POS Ctl [place] (02/10/23 3:25 PM) Normal [facility] Sero SARS-CoV+SARS-CoV-2 (COVID-19) Ag IA.rapid Ql (Resp) Not Detected 6 (02/10/23 3:25 PM) Normal Not Detected [facility] Comment on above: Interpretive Data: T he [employer] System for Rapid Detection of SARS-CoV-2 [...] Coag (PPP) [Time] 29.2 second(s) Normal 25.1-36.5 [facility] Comment on above: Result Comment: [...] the same coagulation reagent and instrumentation as [facility]. Currently there are no coagulation studies available worldwide for children to 14 days, and no normal ranges. Heparin therapeutic range (represented by Anti-Factor Xa activity of 0.2 - 0.4 U/mL) corresponds to PTT of 56.6 - 109.0 sec. Performed By: #### 2 [id number], [id number], [id number], 3797893, 8965923, [id number], [id number] ####[facility] [address] [place] [address] INR Coag (PPP) [Relative time] 1.0 {INR} Invalid Interpretation Code [facility] Comment on above: Result Comment: INR results are specifically intended to assess patients stabilized on long-term Anticoagulation therapy suggested INR?s ?Less Intensive Anticoagulation? 2.0 ? 3.0 Conventional Range 3.0 ? 4.5 Performed By: #### 2 267611, 29069172, 50802138, 0895671, 3149438, 93865758, [id number] ####[facility] [address] [place] [address] PT Coag (PPP) [Time] 11.6 second(s) Normal 9.4-12.5 [facility] Comment on above: Result Comment: [...] the same coagulation reagent and instrumentation as [facility]. Currently there are no coagulation studies available worldwide for children to 14 days, and no normal ranges. Performed By: #### 2 592732, 64116522, 39121836, 4344176, 6235297, 16921482, [id number] ####[facility] [address] [place] [address] Rapid COVID Antigen ([facility])on 02-10-2023 Rapid COV Int NEG Ctl Pass Normal Fis [facility] Comment on above: Performed By: #### 1 [id number], [id number] #### [facility] [address] [place] [address] Rapid COV Int POS Ctl Pass Normal Fis her [facility] Comment on above: Performed By: #### 1 [id number], [id number] #### [facility] [address] [place] [address] SARS-CoV+SARS-CoV-2 (COVID-19) Ag IA.rapid Ql (Resp) Not detected Normal Not Detected [facility] Comment on above: Result Comment: The Enish Veritor? System for Rapid Detection of SARS-CoV-2 [...] or revoked sooner. Performed By: #### 1 [id number], [id number] #### [facility] [address] [place] [address] Troponin 0 Hr.on 02-10-2023 Troponin 5.80 pg/mL Low 10.10-27.1 0 [facility] Comment on above: Result Comment: The 95% CI (Confidence Interval) PPV (Positive Predictive Value) for myocardial infarction in females is 38 pg/mL, in males 51 pg/mL. The results should be used in conjunction with clinical conditions of myocardial infarction. (Access High Sensitivity Troponin I Instructions For Use, [employer], September 2017) Performed By: #### 2 874555, 41097489, 84081565, 3471663, 5426087, 79985352, 59974001 ####[facility] [address] [place] [address] XR Chest Single Viewon 02-10 XR Chest [...] mGy = na DAP = na Normal [facility] eGFRon 02-10-2023 eGFR 43 mL/min/1.73 m2 Low >=59 [facility] Comment on above: Order Comment: Order added by Discern Expert. Performed By: #### 2 428834, 32095729, 85197599, 3490547, 3688724, 13856277, [id number] ####[facility] [address] [facility] [place] [address] Lizbet 10-26-2022 CNPN Telephone (AARON) ----- DEYSI HERNANDEZ ([id number]) 1960 F Date Time Provider Department 10/26/22 [...] question. I will also send her a GigSocial message encouraging communicate via GigSocial if needed. Debra Fishman MD Staff, Department of Kidney Medicine 10/26/22 5:49 PM Allergies As of Date: 10/26/2022 Noted Allergy Reaction CODEINE 09/07/2014 7 - Swelling Date Reviewed: 10/09/2022 Reviewed by: Rosie Harris DO - Fully Assessed Reason for Visit: Patient Question [9227] Prescriptions as of 10/26/2022 - lisinopril (ZESTRIL) [...] Encounter Status:Closed by DEBRA FISHMAN on 10/26/22 [facility] CNPJoan 10-25-2022 CNPN Telephone (MICHAELViralica) ----- DEYSI HERNANDEZ ([id number]) 1960 F Date Time Provider Department 10/25/22 [facility] During your visit today, we recorded the following information about you: Linn Solis Ma 10/25/2022 12:36 PM Signed Patient called the office very upset because today at here appointment with Kidney Medicine she was seen by another provider and it wasn't her kidney doctor. She would like Dr. Fishman call her back at [phone] because she has lots of questions that [...] Fully Assessed Reason for Visit: Patient Question [5729] Prescriptions as of 10/25/2022 - lisinopril (ZESTRIL) [...] Status:Closed by LINN SOLIS MA on 10/25/22 [facility] Urineon 10-18-2022 Bacteria identified Cx Nom (U) [...] Locations R1: This test was performed at: [facility], [address] [place] [address], [phone]- , , [facility] Comment on above: Performed By: #### 2 [id number] ####[address] [place] [address] Family Medicine Office/Clini c Noteon 10-15-2022 Family [...] with voice recognition software. Occasional wrong-word or ?xlfdk-m-fztx? substitutions may have occurred due to the inherent limitations of voice recognition software. 62-year-old female with history of stage III chronic kidney disease, hyperlipidemia, hypertension, current smoker presents today to [facility] care with chief complaint of possible urinary tract infection. She does note that she has been seen urology in the past in regards to stress incontinence. She also notes that she sees nephrology out of [facility]. Patient states she sees them every 6 months for history of her chronic kidney disease in which she states that her right kidney does a lot of work in her left kidney does not function. Patient states a history of urosepsis several years ago and she does not really recall 5 of her days of hospitalization or transfer from [facility] to [facility]. Patient states that on of last week [...] day(s), # 21 cap(s), Refills(s) 0, Pharmacy: [facility] #[id number], 163, cm, 10/15/22 17:40:00 EDT, Height/Length [...] day(s), # 21 cap(s), Refills(s) 0, Pharmacy: [facility]/pharmacy #[id number], 163, cm, 10/15/22 17:40:00 EDT, Height/Length Dosing, 72.3, kg, 10/15/22 17:40:00 EDT, Weight Dosing 3. Smoker (F17.200: Nicotine dependence, unspecified (more content not included)... Normal [facility] Comment on above: Result Comment: [...] numbers. This can be done either in Dutch (U.S[place] or metric measurements. Note that charts and online BMI calculators are available to help you find your BMI quickly and easily without having to do these calculations yourself. To calculate your BMI in Dutch ([place].S[place] measurements: 1. Measure your weight in [...] for Disease Control and Prevention: www.cdc.gov ? [place] Heart Association: www.heart.org ? National Heart, Lung, and Blood [place]: www.nhlbi.nih.gov Summary ? Body mass index (BMI) is a number that is calculated from a person's weight and height. ? BMI may help estimate how much of a person's weight is composed of fat. BMI can help identify those who may be at higher risk for certain medical problems. ? BMI can be measured using Dutch measurements or metric measurements. ? BMI charts are used to identify whether you are underweight, normal weight, overweight, or obese. This information is not intended to replace advice given to you by your health care provider. Make sure you discuss any questions you have with your health care provider. Document Revised: 10/28/2019 Document Reviewed: 09/04/2019 [employer] Patient Education ? 2022 mii. Obstetrics and Gynecology Urinary Tract Infection, Adult [...] condition if: (more content not included)... Normal [facility] 10-11-2022 [facility] Telephone (WIQ) ----- DEYSI HERNANDEZ ([id number]) 1960 F Date Time Provider Department 10/11/22 CATHIE MOORE WIQ During your visit today, we recorded the following information about you: Cathie Moore, [facility] 10/11/2022 12:57 PM Signed Smoking Cessation Navigation Outcome of contact: Left Message Comments: A voicemail has been left for this patient regarding Tobacco Cessation support options. If this patient has any further questions they can email us at or call us at [phone]. eHealth Computer Tester/Smoking Cessation Navigator: [facility] Allergies As of Date: 10/11/2022 Noted Allergy [...] Encounter Status:Closed by CATHIE MOORE on 10/11/22 [facility] Sami 10-09-2022 ÓSCAR Office Visit (ELPIDIO ) ----- DEYSI HERNANDEZ ([id number]) 1960 F Date Time Provider Department 10/09/22 2:00 PM GURMEET OJEDA During your visit today, we recorded the following information about you: Temperature Pulse Blood pressure Weight 97.5 degrees 60/minute 91/60 71.3 kg Height 1.575 m Rosie Harris DO 10/09/2022 5:08 PM Signed [facility] NEPHROLOGY AND HYPERTENSION [facility] SERVICE DATE: 10/09/2022 [...] CKD, ESRD, hearing loss. 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 Normal [facility] URINALYSIS, REFLEX MICROSCOP ICon 10-09-2022 Bacteria LM.HPF (Urine sed) [#/Area] Few Abnormal None Seen [facility] Comment on above: Order Comment: Speci men Type: URINE SPECIMEN Ordering Facility: [facility] Address: [address] [place] [address] Performed By: #### L [id number] #### [facility] CLIA [id number] [address] [place] [address] [place] Bilirubin Ql (U) Negative Normal Negative [facility] Comment on above: Order Comment: Speci men Type: URINE SPECIMEN Ordering Facility: [facility] Address: [address] [place] [address] Performed By: #### L [id number] #### [facility] CLIA [id number] [address] [place] [address] [place] Clarity (Unsp spec) Cloudy Abnormal Clear [facility] Comment on above: Order Comment: Speci men Type: URINE SPECIMEN Ordering Facility: [facility] Address: [address] [place], [place] [address] Performed By: #### L [id number] #### [facility] CLIA [id number] [address] [place] [address] [place] Color (U) Light Yellow Normal Yellow [facility] Comment on above: Order Comment: Speci men Type: URINE SPECIMEN Ordering Facility: [facility] Address: [address] [place] [address] Performed By: #### L [id number] #### [facility] CLIA [id number] [address] [place] [address] [place] Epithelial cells LM.HPF (Urine sed) [#/Area] Few Normal [facility] Comment on above: Order Comment: Speci men Type: URINE SPECIMEN Ordering Facility: [facility] Address: [address] Performed By: #### L [id number] #### [facility] CLIA [id number] [address] [place] [address] [place] Glucose Test strip (U) [Mass/Vol] Negative Normal Trace, Negative [facility] Comment on above: Order Comment: Speci men Type: URINE SPECIMEN Ordering Facility: [facility] Address: [address] Performed By: #### L [id number] #### [facility] CLIA [id number] [address] [place] [address] [place] Hemoglobin Ql (U) Trace Normal Negative, Trace [facility] Comment on above: Order Comment: Speci men Type: URINE SPECIMEN Ordering Facility: [facility] Address: [address] Performed By: #### L [id number] #### [facility] CLIA [id number] [address] [place] [address] [place] Ketones Ql (U) Negative Normal Negative, Trace [facility] Comment on above: Order Comment: Speci men Type: URINE SPECIMEN Ordering Facility: [facility] Address: [address] Performed By: #### L [id number] #### [facility] CLIA [id number] [address] [place] [address] [place] Leukocyte esterase Test strip Ql (U) 250 Bonnie/uL Abnormal Negative, 25 Bonnie/uL [facility] Comment on above: Order Comment: Speci men Type: URINE SPECIMEN Ordering Facility: [facility] Address: [address] Performed By: #### L [id number] #### [facility] CLIA [id number] [address] [place] [address] [place] Nitrite Ql (U) 2+ Abnormal Negative [facility] Comment on above: Order Comment: Speci men Type: URINE SPECIMEN Ordering Facility: [facility] Address: [address] [place] [address] Performed By: #### L [id number] #### [facility] CLIA [id number] [address] [place] [address] [place] pH (U) 5.5 [pH] Normal 5.0-8.0 [facility] Comment on above: Order Comment: Speci men Type: URINE SPECIMEN Ordering Facility: [facility] Address: [address] [place] [address] Performed By: #### L [id number] #### [facility] CLIA [id number] [address] [place] [address] [place] Protein (U) [Mass/Vol] Negative Normal Trace , Negative [facility] Comment on above: Order Comment: Speci men Type: URINE SPECIMEN Ordering Facility: [facility] Address: [address] [place] [address] Performed By: #### L [id number] #### [facility] CLIA [id number] [address] [place] [address] [place] RBC LM.HPF (Urine sed) [#/Area] 0-3 /HPF Normal 0-3 /HPF [facility] Comment on above: Order Comment: Speci men Type: URINE SPECIMEN Ordering Facility: [facility] Address: [address] [place] [address] Performed By: #### L [id number] #### [facility] CLIA [id number] [address] [place] [address] [place] Specific gravity (U) [Rel density] 1.015 Normal 1.005-1.03 0 [facility] Comment on above: Order Comment: Speci men Type: URINE SPECIMEN Ordering Facility: [facility] Address: [address] [place] [address] Performed By: #### L [id number] #### [facility] CLIA [id number] [address] [place] [address] [place] Urobilinogen Ql (U) Negative Normal Negative [facility] Comment on above: Order Comment: Speci men Type: URINE SPECIMEN Ordering Facility: [facility] Address: [address] [place] [address] Performed By: #### L [id number] #### [facility] CLIA [id number] [address] [place] [address] [place] WBC LM.HPF (Urine sed) [#/Area] /[HPF] Abnormal 0-5 /HPF [facility] Comment on above: Order Comment: Speci men Type: URINE SPECIMEN Ordering Facility: [facility] Address: [address] [place] [address] Performed By: #### L [id number] #### [facility] CLIA [id number] [address] [place] [address] [place] Bacteria LM.HPF (Urine sed) [#/Area] Few Abnormal None Seen /HPF [facility] Bilirubin Ql (U) Negative Negative [facility] Clarity (Unsp spec) Cloudy Abnormal Clear [facility] Color (U) Light Yellow Yellow [facility] Epithelial cells LM.HPF (Urine sed) [#/Area] Few [facility] Glucose Test strip (U) [Mass/Vol] Negative Trace, Negative [facility] Hemoglobin Ql (U) Trace Negative, Trace [facility] Ketones Ql (U) Negative Negative, Trace [facility] Leukocyte esterase Test strip Ql (U) 250 Bonnie/uL Abnormal Negative, 25 Bonnie/uL [facility] Nitrite Ql (U) 2+ Abnormal Negative [facility] pH (U) 5.5 [pH] 5.0 - 8.0 [facility] Protein (U) [Mass/Vol] Negative Trace , Negative [facility] RBC LM.HPF (Urine sed) [#/Area] 0-3 /HPF 0-3 /HPF [facility] Specific gravity (U) [Rel density] 1.015 1.005 - 1.030 [facility] Urobilinogen Ql (U) Negative Negative [facility] WBC LM.HPF (Urine sed) [#/Area] /[HPF] Abnormal 0-5 /HPF [facility] Consenton 09-03-2022 Consent [id number]#[id number]:1 27 Normal [facility] Registrationon 09-03-2022 Registration [id number]#[id number]:1 27 Normal [facility] 25([place])D3 [facility] 25-hydroxyvitamin D3 [Mass/Vol] 34.5 ng/mL Normal 31.0-80.0 [facility] Comment on above: Order Comment: Speci men Type: BLOOD SPECIMEN Ordering Facility: [facility] Address: [address] [place] [address] Result Comment: Clas sification of 25 [place] Vitamin D status: Deficiency/Insufficiency: < or = 30 ng/ml. Sufficiency/Optimal Levels: 31-80 ng/mL Toxicity: > 100 ng/mL. Test performed by chemiluminescent immunoassay. Performed By: #### 1 989-3 #### [facility] CLIA [id number] [address] [place] [address] [place] IMMUNOFIXATION SCREEN, SERUM on 08-23-2022 MPA RESULT No M protein is identified. Normal No M protein is identified . [facility] Comment on above: Order Comment: Speci men Type: BLOOD SPECIMEN Ordering Facility: [facility] Address: [address] [place] [address] Performed By: #### I [facility] #### [facility] CLIA [id number] [address] [place] [address] [place] STAFF REVIEW (MPA) Reviewed by Cortes Alfredo MD, Ph.D ([id number]) Normal [facility] Comment on above: Order Comment: Speci men Type: BLOOD SPECIMEN Ordering Facility: [facility] Address: [address] [place] [address] Performed By: #### I FESC #### [facility] CLIA [id number] [address] [place] [address] [place] IMMUNOGLOBULINS GAMon 2022 IgA [Mass/Vol] 218 mg/dL Normal 70-400 [facility] Comment on above: Order Comment: Speci men Type: BLOOD SPECIMEN Ordering Facility: [facility] Address: [address] [place] [address] Performed By: #### S ERIMM #### [facility] CLIA [id number] [address] [place] [address] [place] IgG [Mass/Vol] 775 mg/dL Normal 700-1600 [facility] Comment on above: Order Comment: Speci men Type: BLOOD SPECIMEN Ordering Facility: [facility] Address: [address] [place] [address] Performed By: #### S ERIMM #### [facility] CLIA [id number] [address] [place] [address] [place] IgM [Mass/Vol] 129 mg/dL Normal 40-230 [facility] Comment on above: Order Comment: Speci men Type: BLOOD SPECIMEN Ordering Facility: [facility] Address: [address] [place] [address] Performed By: #### S ERIMM #### [facility] CLIA [id number] [address] [place] [address] [place] KAPPA/THAO,FREE,SERon 2022 Immunoglobulin light chains.kappa.free (S) [Mass/Vol] 26.1 mg/L High 3.3-19.4 [facility] Comment on above: Order Comment: Speci men Type: BLOOD SPECIMEN Ordering Facility: [facility] Address: [address] [place] [address] Result Comment: Rare ly, increased serum free light chains levels may not be detected or accurately quantified due to prozone phenomenon or in high viscosity samples using this immunoturbidimetric assay. Correlation with other laboratory results and clinical findings is recommended. The [place] Free Light Chain was performed using the Binding Site Optilite immunoturbidimetric method. Result obtained with different assay methods or kits cannot be used interchangeably. Performed By: #### K LFRS #### [facility] CLIA [id number] [address] [place] [address] [place] Immunoglobulin light chains.kappa/Immunoglo bulin light chains.lambda (S) [Mass ratio] 1.01 Normal 0.26-1.65 [facility] Comment on above: Order Comment: Speci men Type: BLOOD SPECIMEN Ordering Facility: [facility] Address: [address] [place] [address] Performed By: #### K LFRS #### [facility] CLIA [id number] [address] [place] [address] Immunoglobulin light chains.lambda.free [Mass/Vol] 25.9 mg/L Normal 5.7-26.3 [facility] Comment on above: Order Comment: Speci [facility] Type: BLOOD SPECIMEN Ordering Facility: [facility] Address: [address] [place] [address] Result Comment: Rare ly, increased serum free [...] interchangeably. Performed By: #### K LFRS #### [facility] CLIA [id number] [address] [place] [address] [place] Renal function 2000 panelon 08-23-2022 Albumin [Mass/Vol] 4.3 g/dL Normal 3.9-4.9 [facility] Comment on above: Order Comment: Speci men Type: BLOOD SPECIMEN Ordering Facility: [facility] Address: [address] [place] [address] Performed By: #### 2 4362-6 #### [facility] [place] [id number] [address] [place] [address] [place] Anion gap [Moles/Vol] 9 mmol/L Normal 9-18 [facility] Comment on above: Order Comment: Speci men Type: BLOOD SPECIMEN Ordering Facility: [facility] Address: [address] Performed By: #### 2 4362-6 #### [facility] [place] [id number] [address] [place] [address] [place] Calcium [Mass/Vol] 9.9 mg/dL Normal 8.5-10.2 [facility] Comment on above: Order Comment: Speci men Type: BLOOD SPECIMEN Ordering Facility: [facility] Address: [address] Performed By: #### 2 4362-6 #### [facility] IA [id number] [address] [place] [address] [place] Chloride [Moles/Vol] 105 mmol/L Normal 97-105 [facility] Comment on above: Order Comment: Speci men Type: BLOOD SPECIMEN Ordering Facility: [facility] Address: [address] Performed By: #### 2 4362-6 #### [facility] IA [id number] [address] [place] [address] [place] CO2 [Moles/Vol] 25 mmol/L Normal 22-30 [facility] Comment on above: Order Comment: Speci men Type: BLOOD SPECIMEN Ordering Facility: [facility] Address: [address] Performed By: #### 2 4362-6 #### [facility] CLIA [id number] [address] [place] [address] [place] Creatinine [Mass/Vol] 1.42 mg/dL High 0.58-0.96 [facility] Comment on above: Order Comment: Carmen juarez Type: BLOOD SPECIMEN Ordering Facility: [facility] Address: [address] [place] [address] Performed By: #### 2 4362-6 #### [facility] CLIA [id number] [address] [place] [address] [place] ESTIMATED GLOMERULAR FILTRATION RATE 42 mL/min/1.73m??? Low >=60 [facility] Comment on above: Order Comment: Carmen juarez Type: BLOOD SPECIMEN Ordering Facility: [facility] Address: [address] [place] [address] Result Comment: Jody mated Glomerular Filtration Rate [...] GFR. Performed By: #### 2 4362-6 #### [facility] CLIA [id number] [address] [place] [address] [place] Glucose [Mass/Vol] 70 mg/dL Low 74-99 [facility] Comment on above: Order Comment: Carmen juarez Type: BLOOD SPECIMEN Ordering Facility: [facility] Address: [address] [place] [address] Result Comment: The [place] Diabetes Association (ADA) provides guidance for cutoff [...] Standards of Medical Care in Diabetes 2016, [place] Diabetes Association. Diabetes Care. 2016.39(Suppl 1). Performed By: #### 2 4362-6 #### [facility] [place] [id number] [place] [address] [place] Phosphate [Mass/Vol] 2.5 mg/dL Low 2.7-4.8 [facility] Comment on above: Order Comment: Speci men Type: BLOOD SPECIMEN Ordering Facility: [facility] Address: [address] [address] Performed By: #### 2 4362-6 #### [facility] [place] [id number] [address] [place] [address] [place] Potassium [Moles/Vol] 4.8 mmol/L Normal 3.7-5.1 [facility] Comment on above: Order Comment: Speci men Type: BLOOD SPECIMEN Ordering Facility: [facility] Address: [address] [place] [address] Performed By: #### 2 4362-6 #### [facility] IA [id number] [place] [address] [place] Sodium [Moles/Vol] 139 mmol/L Normal 136-144 [facility] Comment on above: Order Comment: Speci men Type: BLOOD SPECIMEN Ordering Facility: [facility] Address: [address] [place] [address] Performed By: #### 2 4362-6 #### [facility] [place] [id number] [place] [address] [place] Urea nitrogen [Mass/Vol] 18 mg/dL Normal 7-21 [facility] Comment on above: Order Comment: Speci men Type: BLOOD SPECIMEN Ordering Facility: [facility] Address: [address] [place] [address] Performed By: #### 2 4362-6 #### [facility] IA [id number] [place] [address] [place] US KIDNEY/BLADDERon 08-24-19 23 US KIDNEY/BLADDER * * *Final Report* * * DATE OF EXAM: Aug 23 2022 2:15PM [address] KIDNEY/BLADDER / PROCEDURE REASON: Stage 3b chronic [...] residual bladder volume 4. Right renal cyst Skating Rink Manager: PSCB Transcribe Date/Time: Aug 28 2022 8:25A Dictated by : ALEAH QUINN MD This examination was interpreted and the report reviewed and electronically signed by: ALEAH QUINN MD on Aug 28 2022 8:28AM EST [id number] [facility] 08-09-2022 [facility] Office Visit (ELPIDIO ) ----- DEYSI HERNANDEZ ([id number]) 1960 F Date Time Provider Department 08/09/22 3:00 PM GURMEET OJEDA During your visit today, we recorded the following information about you: Temperature Pulse Blood pressure Weight 97.7 degrees 65/minute 98/64 72.5 kg Height 1.575 m Debra Fishman MD 08/09/2022 7:02 PM Signed [facility] NEPHROLOGY AND HYPERTENSION [facility] SERVICE DATE: 08/09/2022 [...] CKD, ESRD, hearing loss. She is a alf smoker, currently 0.75 pack per day but [...] Normal mo (more content not included)... Normal [facility] URINALYSIS, REFLEX MICROSCOP ICon 08-09-2022 Bilirubin Ql (U) Negative Normal Negative [facility] Comment on above: Order Comment: Speci men Type: URINE SPECIMEN Ordering Facility: [facility] Address: [address] [address] Performed By: #### L [id number] #### [facility] CLIA [id number] [address] [place] [address] [place] Clarity (Unsp spec) Clear Normal Clear [facility] Comment on above: Order Comment: Speci men Type: URINE SPECIMEN Ordering Facility: [facility] Address: [address] [address] Performed By: #### L [id number] #### [facility] CLIA [id number] [address] [place] [address] [place] Color (U) Light Yellow Normal Yellow [facility] Comment on above: Order Comment: Speci men Type: URINE SPECIMEN Ordering Facility: [facility] Address: [address] [address] Performed By: #### L [id number] #### [facility] CLIA [id number] [facility] [place] [address] [place] Glucose Test strip (U) [Mass/Vol] Negative Normal Trace, Negative [facility] Comment on above: Order Comment: Speci men Type: URINE SPECIMEN Ordering Facility: [facility] Address: [address] [address] Performed By: #### L [id number] #### [facility] CLIA [id number] [address] [place], [place] [id number] [place] Hemoglobin Ql (U) Negative Normal Negative, Trace [facility] Comment on above: Order Comment: Speci men Type: URINE SPECIMEN Ordering Facility: [facility] Address: [address] Performed By: #### L [id number] #### [facility] CLIA [id number] [address] [place] [address] [place] Ketones Ql (U) Negative Normal Negative, Trace [facility] Comment on above: Order Comment: Speci men Type: URINE SPECIMEN Ordering Facility: [facility] Address: [address] Performed By: #### L [id number] #### [facility] CLIA [id number] [address] [place] [address] [place] Leukocyte esterase Test strip Ql (U) 75 Bonnie/uL Abnormal Negative, 25 Bonnie/uL [facility] Comment on above: Order Comment: Speci men Type: URINE SPECIMEN Ordering Facility: [facility] Address: [address] Performed By: #### L [id number] #### [facility] CLIA [id number] [address] [place] [address] [place] Nitrite Ql (U) Negative Normal Negative [facility] Comment on above: Order Comment: Speci men Type: URINE SPECIMEN Ordering Facility: [facility] Address: [address] Performed By: #### L [id number] #### [facility] CLIA [id number] [address] [place] [address] [place] pH (U) 6.0 [pH] Normal 5.0-8.0 [facility] Comment on above: Order Comment: Speci men Type: URINE SPECIMEN Ordering Facility: [facility] Address: [address] Performed By: #### L [id number] #### [facility] CLIA [id number] [facility] [place] [address] [place] Protein (U) [Mass/Vol] Negative Normal Trace , Negative [facility] Comment on above: Order Comment: Speci men Type: URINE SPECIMEN Ordering Facility: [facility] Address: [address] [place] [address] Performed By: #### L [id number] #### [facility] CLIA [id number] [address] [place] [address] [place] Specific gravity (U) [Rel density] 1.009 Normal 1.005-1.03 0 [facility] Comment on above: Order Comment: Speci men Type: URINE SPECIMEN Ordering Facility: [facility] Address: [address] [place] [address] Performed By: #### L [id number] #### [facility] CLIA [id number] [address] [place] [address] [place] Urobilinogen Ql (U) Negative Normal Negative [facility] Comment on above: Order Comment: Speci men Type: URINE SPECIMEN Ordering Facility: [facility] Address: [address] [place] [address] Performed By: #### L [id number] #### [facility] CLIA [id number] [address] [place] [address] [place] Bilirubin Ql (U) Negative Negative [facility] Clarity (Unsp spec) Clear Clear [facility] Color (U) Light Yellow Yellow [facility] Glucose Test strip (U) [Mass/Vol] Negative Trace, Negative [facility] Hemoglobin Ql (U) Negative Negative, Trace [facility] Ketones Ql (U) Negative Negative, Trace [facility] Leukocyte esterase Test strip Ql (U) 75 Bonnie/uL Abnormal Negative, 25 Bonnie/uL [facility] Nitrite Ql (U) Negative Negative [facility] pH (U) 6.0 [pH] 5.0 - 8.0 [facility] Protein (U) [Mass/Vol] Negative Trace , Negative [facility] Specific gravity (U) [Rel density] 1.009 1.005 - 1.030 [facility] Urobilinogen Ql (U) Negative Negative [facility] Consent for Procedure/Surger yon 06-19-2022 Consent for Procedure/Surgery [id number]#1.00CD:12 7 Normal [facility] Gastroenterology Office/Clin ic Noteon 06-16-2022 Gastroenterology Office/Clinic [...] colonoscopy at the beginning of 02/2022 in [facility]. She states that they did remove [...] a few months ago at an outside facility/[place]. She was found to have a few polyps. She was advised to repeat her colonoscopy in 2027. ATTESTATION: Documentation services were performed after patient or guardian consented to allow [employer] to record this visit. MIKALA strategy specialist and provider reviewed before signing. MIKALA: [...] Use:. Never (more content not included)... Normal [facility] Comment on above: Result Comment: Elec tronically Signed By: Berenice Joyner\.br\Date and Time Signed: 06/14/22 14:24 EDT\.br\Electronically Co-Signed By: Jamie BILLS MD\.br\Date and Time Co-Signed: 06/16/22 14:25 EDT [facility] 06-13-2022 Lab Reports [id number]#1.00CD:12 7 Normal [facility] LIPID PROFILEon 06-12-2022 CHOL-HDL RATIO NORM SEE BELOW Normal [facility] Comment on above: Result Comment: 3.3 - 4.4 LOW RISK 4.4 - 7.1 AVERAGE RISK 7.1 - 11.0 MODERATE RISK >11.0 HIGH RISK Performed By: #### L IPID, BMP #### [facility] [address] [address] [address] Moreno Amato Cholesterol [Mass/Vol] 178 mg/dL Normal <=200 [facility] Comment on above: Performed By: #### L IPID, BMP #### [facility] [address] [address] [address] Moreno Amato Cholesterol in HDL [Mass/Vol] 39 mg/dL Critically low 40-60 [facility] Comment on above: Performed By: #### L IPID, BMP #### [facility] [address] [address] [address] Moreno Amato Cholesterol in LDL [Mass/Vol] 92.0 mg/dL Normal [facility] Comment on above: Performed By: #### L IPID, BMP #### [facility] [address] [address] [address] Moreno Amato Cholesterol.total/Chol esterol in HDL [Mass ratio] 4.6 {ratio} Normal [facility] Comment on above: Performed By: #### L IPID, BMP #### [facility] [address] [address] [address] Moreno Amato HDL NORMAL > or = 60 mg/dl - LO W CARDIOVASCULAR RISK <40 mg/dl - HIGH CARDIOVASCULAR RISK Normal [facility] Comment on above: Performed By: #### L IPID, BMP #### [facility] [address] [address] [address] Moreno Amato LDL CALC NORMAL SEE BELOW Normal [facility] Comment on above: Result Comment: <100 mg/dl OPTIMAL 100 - 129 mg/dl NEAR OR ABOVE OPTIMAL 130 - 159 mg/dl BORDERLINE HIGH 160 - 189 mg/dl HIGH >190 mg/dl VERY HIGH Performed By: #### L IPID, BMP #### [facility] [address] [address] [address] Moreno Amato Triglyceride [Mass/Vol] 235 mg/dL Critically high <=150 [facility] Comment on above: Performed By: #### L IPID, BMP #### [facility] [address] [address] [address] Moreno Amato VLDL CALC 47.0 mg/dL Normal [facility] Comment on above: Performed By: #### L IPID, BMP #### [facility] [address] [address] [address] Moreno Amato PROF CHEM 8 (BAS METB)on Anion gap [Moles/Vol] 10.7 mmol/L Normal [facility] Comment on above: Performed By: #### L IPID, BMP #### [facility] [address] [place] [address] Dr. Moreno Amato Calcium [Mass/Vol] 9.6 mg/dL Normal 8.5-10.1 [facility] Comment on above: Performed By: #### L IPID, BMP #### [facility] [address] [place] [address] Dr. Moreno Amato Chloride [Moles/Vol] 104 mmol/L Normal 98-107 [facility] Comment on above: Performed By: #### L IPID, BMP #### [facility] [address] [place] [address] Dr. Moreno Amato CO2 [Moles/Vol] 31.6 mmol/L Normal 21.0-32.0 [facility] Comment on above: Performed By: #### L IPID, BMP #### [facility] [address] [address] [address] Moreno Amato Creatinine [Mass/Vol] 1.58 mg/dL Critically high 0.55-1.02 [facility] Comment on above: Performed By: #### L IPID, BMP #### [facility] [address] [place] [address] Dr. Moreno Amato EGFR-AF GERMAN 40 mL/min/1.73m2 Critically low >=60 [facility] Comment on above: Performed By: #### L IPID, BMP #### [facility] [address] [place] [address] Dr. Moreno Amato EGFR-NON AF GERMAN 33 mL/min/1.73m2 Critically low >=60 [facility] Comment on above: Performed By: #### L IPID, BMP #### [facility] [address] [place] [address] Dr. Moreno Amato Glucose [Mass/Vol] 79 mg/dL Normal 74-106 [facility] Comment on above: Performed By: #### L IPID, BMP #### [facility] [address] [place] [address] Dr. Moreno Amato Potassium [Moles/Vol] 4.3 mmol/L Normal 3.5-5.1 [facility] Comment on above: Performed By: #### L IPID, BMP #### [facility] [address] [place] [address] Dr. Moreno Amato Sodium [Moles/Vol] 142 mmol/L Normal 136-145 [facility] Comment on above: Performed By: #### L IPID, BMP #### [facility] [address] [place] [address] Dr. Moreno Amato Urea nitrogen [Mass/Vol] 21.0 mg/dL Critically high 7.0-18.0 [facility] Comment on above: Performed By: #### L IPID, BMP #### [facility] [address] [place] [address] Dr. Moreno Amato Urea nitrogen/Creatinine [Mass ratio] 13.3 mg/mg Normal [facility] Comment on above: Performed By: #### L IPID, BMP #### [facility] [address] [place] [address] Dr. Moreno Amato URINE T PROTEIN CREAT RATIOo n 06-12-2022 Protein (U) [Mass/Vol] 8.8 mg/dL Normal <=12.0 [facility] Comment on above: Performed By: #### A MY, CMP, LIPA #### [facility] [address] [place] [address] Dr. Moreno Amato UR PROT CREAT RAT 0.12 Normal [facility] Comment on above: Performed By: #### A MY, CMP, LIPA #### [facility] [address] [place] [address] Dr. Moreno Amato URINE CREAT 70.82 mg/dL Normal 20.00-300. 00 [facility] Comment on above: Performed By: #### A MY, CMP, LIPA #### [facility] [address] [place] [address] Dr. Moreno Amato Patient Educationon 06-07-19 Patient [...] health care provider. General instructions ? Take noec-qyw-quafvvx and prescription medicines only as told by [...] monitor yo (more content not included)... Normal [facility] Urology Office/Clinic Noteon 06-06-2022 Urology [...] in 1 week(s) for session #4 Ordered: 98894 EMG anal/urethral sphincter no needle 70388 Biofeedback training, perineal muscles, anorectal 18097 Anorectal Manometry 91067 ELECTRICAL STIMULATION 26411 Urnls Dip Stick Auto w/o Microscopy POC 31284 Follow-up No qualifying data available 1 WEEK [...] Protein Urine Dipstick: Negative (06/06/22 10:58:00) Specific [place] Urine Dipstick: 1.015 (06/06/22 10:58:00) Urine Appearance Urine Dipstick: Clear (06/06/22 10:58:00) Urine Color Urine Dipstick: Yellow (06/06/22 10:58:00) Urobilinogen Urine Dipstick: Normal 0.2-1 EU/dl (06/06/22 10:58:00) pH Urine Dipstick: 5.5 (06/06/22 10:58:00) Normal [facility] Comment on above: Result Comment: Elec tronically Signed By: TRUDY KNOTT PA-C\dang\Date and Time Signed: 06/06/22 11:24 EDT EMG Electromyographyon 05-31 EMG Electromyography [id number]#1.00CD:12 7 Normal [facility] Patient Educationon 05-31-19 23 Patient Education Obstetrics [...] Take ove (more content not included)... Normal [facility] Urology Office/Clinic Noteon 05-30-2022 Urology [...] in 1 week(s) for session #3 Ordered: 39517 EMG anal/urethral sphincter no needle 35403 Biofeedback training, perineal muscles, anorectal 94167 Anorectal Manometry 95781 ELECTRICAL STIMULATION 22015 Urnls Dip Stick Auto w/o Microscopy POC 60381 Follow-up With When Contact Information [facility] [address] [place] [address] [place] (1) Additional Instructions: for procedure as scheduled [...] Protein Urine Dipstick: Negative (05/30/22 11:22:00) Specific [place] Urine Dipstick: 1.020 (05/30/22 11:22:00) Urine Appearance Urine Dipstick: Clear (05/30/22 11:22:00) Urine Color Urine Dipstick: Yellow (05/30/22 11:22:00) Urobilinogen Urine Dipstick: Normal 0.2-1 EU/dl (05/30/22 11:22:00) pH Urine Dipstick: 5.5 (05/30/22 11:22:00) Normal [facility] Comment on above: Result Comment: Elec tronically Signed By: TRUDY KNOTT PA-C\.br\Date and Time Signed: 05/30/22 13:37 EDT EMG Electromyographyon 05-24 EMG Electromyography [id number]#1.00CD:12 7 Normal [facility] EMG Electromyography [id number]#1.00CD:12 7 Normal [facility] Ambulatory Visit Summaryon 0 05-23-2022 Ambulatory Visit Summary DEYSI HERNANDEZ :1960 Visit Date:05/23/2022 Ambulatory Visit Instructions Your Diagnosis Stress incontinence, female Urinary urgency Urinary frequency Tests Performed Urnls Dip Stick Auto w/o Microscopy POC 40259 Your Care Team Attending Physician - TRDUY KNOTT PA-C Primary Care Physician - SHAIKH [...] TRUDY KNOTT PA-C Where: [facility] Trena Invalid Interpretation Code [address] [place] [place] [address]- \. br\ Saturday 10:30 AM EDT \.br\ With: TRUDY KNOTT PA-C\.br\ Where: [facility] Patient Educationon 05-24-19 Patient Education Obstetrics and [...] 01/21/2013 Document Revised: 09/24/2018 Document Reviewed: 09/24/2018 [employer] Patient Education ? 2019 mii. Marielena [facility] Urology Office/Clinic Noteon 05-23-2022 Urology [...] in 1 week(s) for session #2 Ordered: 17290 EMG anal/urethral sphincter no needle 39770 Biofeedback training, perineal muscles, anorectal 16302 Anorectal Manometry 29851 ELECTRICAL STIMULATION 07262 Urnls Dip Stick Auto w/o Microscopy POC 49291 2. Urinary urgency (R39.15: Urgency of urination) see#1 Ordered: 72260 EMG anal/urethral sphincter no needle 58092 Biofeedback training, perineal muscles, anorectal 15032 Anorectal Manometry 33421 ELECTRICAL STIMULATION 22775 3. Urinary frequency (R35.0: Frequency of micturition) see #1 Ordered: 90774 EMG anal/urethral sphincter no needle 39429 Biofeedback training, perineal muscles, anorectal 56762 Anorectal Manometry 71593 ELECTRICAL STIMULATION 30689 Follow-up No qualifying data available 1 week [...] Protein Urine Dipstick: Negative (05/23/22 10:42:00) Specific [place] Urine Dipstick: 1.015 (05/23/22 10:42:00) Urine Appearance Urine Dipstick: Clear (05/23/22 10:42:00) Urine Color Urine Dipstick: Light yellow (05/23/22 10:42:00) Urobilinogen Urine Dipstick: Normal 0.2-1 EU/dl (05/23/22 10:42:00) pH Urine Dipstick: 5.5 (05/23/22 10:42:00) Normal [facility] Comment on above: Result Comment: Elec tronically Signed By: TRUDY KNOTT PA-C\.br\Date and Time Signed: 05/23/22 12:12 EDT Pre-Certification Formon Pre-Certification Form [id number]#1.00CD:1 27 Normal [facility] HEMOGLOBINon 04-30-2022 Hemoglobin (Bld) [Mass/Vol] 15.3 g/dL Normal 12.0-16.0 [facility] Comment on above: Performed By: #### A MY, CMP, LIPA #### [facility] [address] [place] [address] Dr. Moreno Amato Physician Referralon 023 Physician Referral [id number]#1.00CD:12 7 Normal [facility] Ambulatory Visit Summaryon 0 04-11-2022 Ambulatory Visit Summary DEYSI HERNANDEZ :1960 Visit Date:04/11/2022 Ambulatory Visit Instructions Your Diagnosis Stress incontinence, female Tests Performed Urnls Dip Stick Auto w/o Microscopy POC 50603 Your Care Team Attending Physician - TRUDY [...] TRUDY KNOTT PA-C, URL When: Where: [address] [place] [address] Medications What How Much When Instructions Unchanged [...] Urnls Dip Stick Auto w/o Microscopy POC 26684 (04/11/2022) Bilirubin Urine Dipstick - Negative Blood Urine Dipstick - Trace-intact Glucose Urine Dipstick - Negative Ketones Urine Dipstick - Negative Leukocytes Urine Dipstick - Trace Nitrite Urine Dipstick - Negative Protein Urine Dipstick - 1+ (30 mg/dl) Specific [place] Urine Dipstick - 1.025 Urine Appearance Urine [...] 01/21/2013 Document Revised: 09/24/2018 Document Reviewed: 09/24/2018 [employer] Patient Education ? 2020 mii. [facility] Patient Educationon 04-11-19 Patient Education Obstetrics and [...] 01/21/2013 Document Revised: 09/24/2018 Document Reviewed: 09/24/2018 [employer] Patient Education ? 2019 mii. Normal [facility] Urology Office/Clinic Noteon 04-11-2022 Urology Office/Clinic Note [...] pt prefers to proceed with PFPT in [place] and Joniise Laura in meantime. Follow-up With When Contact Information TRUDY KNOTT PA-C, URL [address] [address] Additional Instructions: Follow up for PFPT with biofeedback Patient Education Kegel Exercises Documentation recorded by the scribe Jolene Plata accurately reflects the services(s) I performed and decisions made by me. Authenticated by Trudy Knott PA-C on 04/11/2022 13:17:40. IJolene, personally scribed for JANELLE Moore on 04/11/2022 [...] mg/dl) (04/11/22 (more content not included)... Normal [facility] Comment on above: Result Comment: Elec tronically Signed By: TRUDY KNOTT PA-C\.br\Date and Time Signed: 04/11/22 13:17 EST\.br\Electronically Co-Signed By: Jolene Plata\.br\Date and Time Co-Signed: 04/11/22 11:55 EST Lab Report[facility] 04-04-2022 Lab Reports [id number]#1.00CD:12 7 Normal [facility] LIPID PROFILEon 03-27-2022 CHOL-HDL RATIO NORM SEE BELOW Normal [facility] Comment on above: Result Comment: 3.3 - 4.4 LOW RISK 4.4 - 7.1 AVERAGE RISK 7.1 - 11.0 MODERATE RISK >11.0 HIGH RISK Performed By: #### A MY, CMP, LIPA #### [facility] [address] [address] [address] Moreno Amato Cholesterol [Mass/Vol] 217 mg/dL Critically high <=200 [facility] Comment on above: Performed By: #### A MY, CMP, LIPA #### [facility] [address] [address] [address] Moreno Amato Cholesterol in HDL [Mass/Vol] 42 mg/dL Normal 40-60 [facility] Comment on above: Performed By: #### A MY, CMP, LIPA #### [facility] [address] [address] [address] Moreno Amato Cholesterol in LDL [Mass/Vol] 121.6 mg/dL Normal [facility] [place] Comment on above: Performed By: #### A MY, CMP, LIPA #### [facility] [address] [address] [address] Moreno Amato Cholesterol.total/Chol esterol in HDL [Mass ratio] 5.2 {ratio} Normal [facility] [place] Comment on above: Performed By: #### A MY, CMP, LIPA #### [facility] [address] [address] [address] Moreno Amato HDL NORMAL > or = 60 mg/dl - LO W CARDIOVASCULAR RISK <40 mg/dl - HIGH CARDIOVASCULAR RISK Normal [facility] [place] Comment on above: Performed By: #### A MY, CMP, LIPA #### [facility] [address] [address] [address] Moreno Amato LDL CALC NORMAL SEE BELOW Normal [facility] Comment on above: Result Comment: <100 mg/dl OPTIMAL 100 - 129 mg/dl NEAR OR ABOVE OPTIMAL 130 - 159 mg/dl BORDERLINE HIGH 160 - 189 mg/dl HIGH >190 mg/dl VERY HIGH Performed By: #### A MY, CMP, LIPA #### [facility] [address] [address] [address] Moreno Amato Triglyceride [Mass/Vol] 267 mg/dL Critically high <=150 [facility] [place] Comment on above: Performed By: #### A MY, CMP, LIPA #### [facility] [address] [address] [address] Moreno Amato VLDL CALC 53.4 mg/dL Normal [facility] [place] Comment on above: Performed By: #### A MY, CMP, LIPA #### [facility] [address] [address] [address] Moreno Amato PROF CHEM 8 (BAS METB)on Anion gap [Moles/Vol] 11.1 mmol/L Normal [facility] Comment on above: Performed By: #### A MY, CMP, LIPA #### [facility] [address] [address] [address] Moreno Amato Calcium [Mass/Vol] 9.2 mg/dL Normal 8.5-10.1 [facility] Comment on above: Performed By: #### A MY, CMP, LIPA #### [facility] [address] [place] [address] Dr. Moreno Amato Chloride [Moles/Vol] 104 mmol/L Normal 98-107 [facility] [place] Comment on above: Performed By: #### A MY, CMP, LIPA #### [facility] [address] [address] [address] Moreno Amato CO2 [Moles/Vol] 27.4 mmol/L Normal 21.0-32.0 [facility] Comment on above: Performed By: #### A MY, CMP, LIPA #### [facility] [address] [address] [address] Moreno Amato Creatinine [Mass/Vol] 1.30 mg/dL Critically high 0.55-1.02 [facility] [place] Comment on above: Performed By: #### A MY, CMP, LIPA #### [facility] [address] [address] [address] Moreno Amato EGFR-AF GERMAN 51 mL/min/1.73m2 Critically low >=60 [facility] [place] Comment on above: Performed By: #### A MY, CMP, LIPA #### [facility] [address] [address] [address] Moreno Amato EGFR-NON AF GERMAN 42 mL/min/1.73m2 Critically low >=60 [facility] [place] Comment on above: Performed By: #### A MY, CMP, LIPA #### [facility] [address] [address] [address] Moreno Amato Glucose [Mass/Vol] 102 mg/dL Normal 74-106 [facility] Comment on above: Performed By: #### A MY, CMP, LIPA #### [facility] [address] [address] [address] Moreno Amato Potassium [Moles/Vol] 4.5 mmol/L Normal 3.5-5.1 [facility] Comment on above: Performed By: #### A MY, CMP, LIPA #### [facility] [address] [address] [address] Moreno Amato Sodium [Moles/Vol] 138 mmol/L Normal 136-145 [facility] Comment on above: Performed By: #### A MY, CMP, LIPA #### [facility] [address] [address] [address] Moreno Amato Urea nitrogen [Mass/Vol] 23.0 mg/dL Critically high 7.0-18.0 [facility] [place] Comment on above: Performed By: #### A MY, CMP, LIPA #### [facility] [address] [address] [address] Moreno Amato Urea nitrogen/Creatinine [Mass ratio] 17.7 mg/mg Normal [facility] [place] Comment on above: Performed By: #### A MY, CMP, LIPA #### [facility] [address] [address] [address] Moreno Amato SGOTon 03-27-2022 AST [Catalytic activity/Vol] 24 U/L Normal 15-37 [facility] [place] Comment on above: Performed By: #### A MY, CMP, LIPA #### [facility] [address] [place] [address] Dr. Moreno Amato SGPTon 03-27-2022 ALT [Catalytic activity/Vol] 20 U/L Normal 14-59 [facility] [place] Comment on above: Performed By: #### A MY, CMP, LIPA #### [facility] [address] [place] [address] Dr. Moreno Amato COVID/FLU RT-PCRon 3 SARS-CoV-2 (COVID-19) RNA ELISA+probe Ql (Unsp spec) Negative [facility] [employer] Other COVID/FLU RT-PCR Negative [facility] [employer] Other Quick Strepon 03-19-2022 S. pyogenes Org specific cx Ql (Throat) Negative [employer] [facility] [employer] Other Quick Strep [employer] [facility] [employer] Other Tobacco Screening.on 023 Adult depression screening assessment No [facility] [address] DO Work Phone: Fall risk assessment c) Not medically indicated [facility] [address] DO Work Phone: Tobacco use status CPHS b) No [facility] 250 DO Work Phone: PAP ACOG PANEL 2: 30 to 65on 03-02-2022 . . Normal [facility] [place] Comment on above: Result Comment: Perf ormed at: WB Performed By: #### A MY, CMP, LIPA #### [facility] [address] [place] [address] Dr. Moreno Amato Age Gdln ACOG Testing 30-65 Normal [facility] [place] Comment on above: Performed By: #### A MY, CMP, LIPA #### [facility] [address] [address] [address] Moreno Amato DIAGNOSIS: Comment Normal [facility] [place] Comment on above: Result Comment: NEGA TIVE FOR INTRAEPITHELIAL LESION OR MALIGNANCY. Performed at: WB Performed By: #### A MY, CMP, LIPA #### [facility] [address] [place] [address] Dr. Moreno Amato HPV Aptima Negative Normal Negative [facility] [place] Comment on above: Result Comment: This nucleic acid amplification test detects fourteen high-risk HPV types (16,18,31,33,35,39,45,51,52,56,58,59,66,68) without differentiation. Performed at: =G Performed By: #### A MY, CMP, LIPA #### [facility] [address] [place] [address] Dr. Moreno Amato HPV Genotype Reflex Comment Normal [facility] Comment on above: Result Comment: Crit eria not met, HPV Genotype not performed. Performed at: WB Performed By: #### A MY, CMP, LIPA #### [facility] [address] [place] [address] Dr. Moreno Amato Methodology: Comment [facility] Comment on above: Result Comment: This liquid based ThinPrep(R) pap test was screened with the use of an image guided system. Performed at: WB Performed By: #### A MY, CMP, LIPA #### [facility] [address] [place] [address] Dr. Moreno Amato Note: Comment Normal [facility] [place] Comment on above: Result Comment: The Pap [...] By: #### A MY, CMP, LIPA #### [facility] [address] [place], [place] [address] Dr. Moreno Amato Performed by: Comment Normal [facility] Comment on above: Result Comment: Maria Luisa Chou, Asset Management Lead (ASCP) Performed at: WB Performed By: #### A MY, CMP, LIPA #### [facility] [address], [place] [address] Dr. Moreno Amato Specimen adequacy: Comment Normal [facility] Comment on above: Result Comment: Sati sfactory for evaluation. Endocervical and/or squamous metaplastic cells (endocervical component) are present. Performed at: WB Performed By: #### A MY, CMP, LIPA #### [facility] [address], [place] [address] Dr. Moreno Amato XR CHEST 2 Von [...] by: AMY ROSS Date: 2022-02-19 22:40 Normal [facility] CARDIAC STRESS/REST INJE CTIONon 01-23-2022 [facility] CARDIAC STRESS/REST INJECTION Patient Name: DEYSI HERNANDEZ STUDY: MYOCARDIAL PERFUSION STRESS TEST WITH LEXISCAN Performing facility: [facility], [address] [place] [address], [address], [place] [address] [facility] Provider: Carlene Beal MD, FACC PCP: Dr. Mariann Thompson Supervising provider: Autumn Guidry RN, SCAFFOLDER INDICATION: Chest discomfort Elevated troponin Hyperlipidemia HISTORY: Gender: F; Age: 61 y/o ; Height: 0 cm; Weight: 71.3946166 kg. High Cholesterol; HTN; Chest Pain; Quit smoking <1 year ago. COMPARISON: No comparison. ACCESSION NUMBER(S): [id number]; [id number]; [id number] ORDERING CLINICIAN: MARQUEZ BEAL TECHNIQUE: ONE DAY [...] Electronically signed by: WAQAR MARTINEZ MD Normal [facility] No Panel Informationon 01-23 [facility] Work Phone: Tobacco Screening.on 022 Fall risk assessment a) No falls within the last year [facility] 600 DO Work Phone: Tobacco use status CP b) No [facility] 600 DO Work Phone: MG MAMM SCREEN 3D NIRMALA CADon 10-30-2021 MG MAMM SCREEN 3D NIRMALA CAD Patient: DEYSI HERNANDEZ Exam Date: 10/30/2021 : 1960 Gender:F Ordering : SHAIKH Ford THOMPSON . Admission #: [id number] Family : Order #: [id number] CLICK HERE TO VIEW EXAM RADIOLOGY REPORT PROCEDURE: MAMMOGRAM SCREENING 3D BILATERAL CAD COMPARISON: MG MAMM NIRMALA SCRN W CAD DIG, 12/05/2012. INDICATIONS: Screening mammography Calculator Name NCI Breast Cancer Risk Assessment Tool 5 Year Breast Cancer Risk 1.00% Lifetime Breast Cancer Risk 5.50% Personal Breast Cancer No Personal Ovarian Cancer No Treatments None Family Cancers None LOCATION: [facility] BREAST COMPOSITION: Scattered areas fibroglandular density. FINDINGS: [...] M.D. on 10/31/2021 at 08:52 Normal [facility] Cardiac Stress Teston 2021 [facility]iac Stress Test [facility] [address] [place] [address], [address] [place] [address] Exercise Stress Test Patient Name: DEYSI HERNANDEZ Ordering Physician: [id number] Beal MD Study Date: 10/17/2021 Reading Physician: [id number] Newman MD, [facility] MRN/PID: [id number] Supervising Physician: [id number] Jaycob Newman MD, [facility] Accession/Order#: [id number] Referring Physician: Cyn BEAL Date of : 1960 PCP: Mariann THOMPSON Gender: M Fellow: Height: 162.56 cm Nurse: Jackie Shen RN Weight: 68.95 kg Professor Of Medicine: KYLE BSA: 1.74 m2 Technologist: BMI: 26.09 kg/m2 Additional Staff: Age: 61 years cc report to: Patient Location: cc report to: [id number] Marquez Beal MD Study Type: Cardiac Stress Test Diagnosis/ICD: R07.89-Other chest pain Indication: Chest Pain Atypical Procedure/CPT: Stress Test Interpretation-[id number]; Stress Test Supervision-[id number] Falls Risk: Low: Patient has low risk [...] The adequate level of stress was achieved. [id number] Jaycob Newman MD, FACC Electronically signed on 10/23/2021 at 12:29:[address] [facility] Cardiac Stress Test Please click on the link to view the study images [facility] Work Phone: Cardiac Stress Test [facility] [facility] 250 DO Work Phone: Creatinine and Glomerular fi ltration rate.predicted panel (S/P/Bld)Ordered By: Marquez Beal on 09-18-2021 Creatinine [Mass/Vol] 1.10 mg/dL 0.44-1.03 [facility] Estimated glomerular filtrat ion rate (GFR) non- AmericanOrdered By: Marquez Beal on 09-18-2021 GFR/1.73 sq M.predicted among non-blacks MDRD (S/P/Bld) [Vol rate/Area] 51 mL/Min [facility] No Panel InformationOrdered By: Marquez Beal on 09-18-2021 Estimated GFR () > 60 mL/Min [facility] Comment on above: GFR estimated refere nce range: According to KDOQI guidelines, <60 ml/min/1.73m2 is sufficient to diagnose a patient with chronic kidney disease. Pharmacy Creatinine Clearance (Chem N/A [facility] No Panel Informationon 09-18 9.8\S\9.8 Normal 8.2-10.2 [facility] DO Work Phone: Comment on above: PERFORMED BY:[address] [address] [place], [place] [phone] MEDICAL DIRECTORJERAMY CALDWELL M.D. 25.1\S\25.1 Normal 22.0-30.0 [facility] 250 DO Work Phone: 100\S\100 Normal 95-114 [facility] 250 DO Work Phone: 3.9\S\3.9 Normal 3.5-5.1 [facility] 250 DO Work Phone: 138\S\138 Normal 136-146 [facility] 250 DO Work Phone: > 60 [facility] Work Phone: Comment on above: GFR estimated refere nce range: According to KDOQI guidelines, <60 ml/min/1.73m2 is sufficient to diagnose a patient with chronic kidney disease. 51\S\51 Normal [facility] 250 DO Work Phone: 1.10\S\1.10 above high threshold 0.44-1.03 [facility] Work Phone: 15\S\15 Normal 9-23 [facility] [place] 250 DO Work Phone: 95\S\95 Normal 70-100 [facility] Work Phone: Comment on above: Random Glucose Refer ence Range is dependent on time and content of last meal. Glucose of more than 200 mg/dL in a nonstressed, ambulatory subject supports the diagnosis of Diabetes Mellitus. ADA recommended reference range Serum or plasma calcium teagan urement (mass/volume)Ordered By: Marquez Beal on 09-18-2021 Calcium [Mass/Vol] 9.8 mg/dL 8.2-10.2 [facility] Serum or plasma chloride sophia surement (moles/volume)Ordered By: Marquez Beal on 09-18-2021 Chloride [Moles/Vol] 100 mmol/L 95-114 [facility] Serum or plasma glucose teagan urement (mass/volume)Ordered By: Marquez Beal on 09-18-2021 Glucose [Mass/Vol] 95 mg/dL 70-100 [facility] Comment on above: ADA recommended refe rence range Random Glucose Reference Range is dependent on time and content of last meal. Glucose of more than 200 mg/dL in a nonstressed, ambulatory subject supports the diagnosis of Diabetes Mellitus. Serum or plasma potassium me asurement (moles/volume)Ordered By: Marquez Beal on 09-18-2021 Potassium [Moles/Vol] 3.9 mmol/L 3.5-5.1 [facility] Serum or plasma sodium measu rement (moles/volume)Ordered By: Marquez Bela on 09-18-2021 Sodium [Moles/Vol] 138 mmol/L 136-146 [facility] Serum or plasma total carbon dioxide measurement (moles/volume)Ordered By: Marquez Beal on 09-18-2021 CO2 [Moles/Vol] 25.1 mmol/L 22.0-30.0 [facility] Serum or plasma urea nitroge n measurement (mass/volume)Ordered By: Marquez Beal on 09-18-2021 Urea nitrogen [Mass/Vol] 15 mg/dL 9-23 [facility] Tobacco Screening.on 022 Adult depression screening assessment No [facility] 250 DO Work Phone: Fall risk assessment a) No falls within the last year [facility] 250 DO Work Phone: Tobacco use status CPHS a) Yes [facility] 250 DO Work Phone: Tobacco Screening. Yes [facility] 250 DO Work Phone: Bacterial blood cultureOrder ed By: Bong Bansal on 08-19-2021 Bacteria identified Cx Nom (Bld) NO GROWTH 5 DAYS [facility] Basophils Auto (Bld) [#/Vol] Ordered By: Alaina Arce on 08-17-2021 Basophils (Bld) [#/Vol] 0.1 10*3/uL 0.0-0.2 [facility] Basophils/100 WBC Auto (Bld) Ordered By: Alaina Arce on 08-17-2021 Basophils/100 WBC (Bld) 0.7 % . [facility] Blood hemoglobin measurement (mass/volume)Ordered By: Alaina Arce on 08-17-2021 Hemoglobin (Bld) [Mass/Vol] 15.0 g/dL 11.8-15.4 [facility] Blood leukocytes automated c ount (number/volume)Ordered By: Alaina Arce on 08-17-2021 WBC (Bld) [#/Vol] 10.0 10*3/uL 4.5-11.0 [facility] Creatinine and Glomerular fi ltration rate.predicted panel (S/P/Bld)Ordered By: Alaina Arce on 08-17-2021 Creatinine [Mass/Vol] 1.27 mg/dL 0.44-1.03 [facility] Eosinophils Auto (Bld) [#/Vo l]Ordered By: Alaina Arce on 08-17-2021 Eosinophils (Bld) [#/Vol] 0.2 10*3/uL 0.0-0.45 [facility] Eosinophils/100 WBC Auto (Bl d)Ordered By: Alaina Arce on 08-17-2021 Eosinophils/100 WBC (Bld) 1.8 % . [facility] Erythrocyte distribution wid th Auto (RBC) [Ratio]Ordered By: Alaina Arce on 08-17-2021 Erythrocyte distribution width (RBC) [Ratio] 12.7 % 11.9-15.3 [facility] Estimated glomerular filtrat ion rate (GFR) non- AmericanOrdered By: Alaina Arce on 08-17-2021 GFR/1.73 sq M.predicted among non-blacks MDRD (S/P/Bld) [Vol rate/Area] 43 mL/Min [facility] Hematocrit Auto (Bld) [Volum e fraction]Ordered By: Alaina Arce on 08-17-2021 Hematocrit (Bld) [Volume fraction] 42.6 % 34.0-46.4 [facility] - Hematology and Cell countsOrdered By: Alaina Arce on 08-17-2021 Nucleated RBC/100 WBC (Bld) [Ratio] 0.0 % 0-0.5 [facility] Lymphocytes Auto (Bld) [#/Vo l]Ordered By: Alaina Arce on 08-17-2021 Lymphocytes (Bld) [#/Vol] 2.4 10*3/uL 1.00-4.8 [facility] Lymphocytes/100 WBC Auto (Bl d)Ordered By: Alaina Arce on 08-17-2021 Lymphocytes/100 WBC (Bld) 23.7 % . [facility] MCH Auto (RBC) [Entitic mass ]Ordered By: Alaina Arce on 08-17-2021 MCH (RBC) [Entitic mass] 31.0 pg 24.7-34.3 [facility] MCHC Auto (RBC) [Mass/Vol]Or dered By: Alaina Arce on 08-17-2021 MCHC (RBC) [Mass/Vol] 35.3 g/dL 32.0-35.0 [facility] MCV Auto (RBC) [Entitic vol] Ordered By: Alaina Arce on 08-17-2021 MCV (RBC) [Entitic vol] 87.8 fL 80-100 [facility] Monocytes Auto (Bld) [#/Vol] Ordered By: Alaina Arce on 08-17-2021 Monocytes (Bld) [#/Vol] 1.0 10*3/uL 0.0-0.8 [facility] Monocytes/100 WBC Auto (Bld) Ordered By: Alaina Arce on 08-17-2021 Monocytes/100 WBC (Bld) 10.2 % . [facility] Neutrophils Auto (Bld) [#/Vo l]Ordered By: Alaina Arce on 08-17-2021 Neutrophils (Bld) [#/Vol] 6.3 10*3/uL 1.8-7.7 [facility] Neutrophils/100 WBC Auto (Bl d)Ordered By: Alaina Arce on 08-17-2021 Neutrophils/100 WBC (Bld) 63.6 % . [facility] No Panel InformationOrdered By: Alaina Arce on 08-17-2021 Estimated GFR () 52 mL/Min [facility] Comment on above: GFR estimated refere nce range: According to KDOQI guidelines, <60 ml/min/1.73m2 is sufficient to diagnose a patient with chronic kidney disease. Pharmacy Creatinine Clearance (Chem 47.54 [facility] Platelet mean volume Auto (B ld) [Entitic vol]Ordered By: Alaina Arce on 08-17-2021 Platelet mean volume (Bld) [Entitic vol] 8.5 fL 6.3-10.7 [facility] Platelets Auto (Bld) [#/Vol] Ordered By: Alaina Arce on 08-17-2021 Platelets (Bld) [#/Vol] 241 10*3/uL 150-450 [facility] RBC Auto (Bld) [#/Vol]Ordere d By: Alaina Arce on 08-17-2021 RBC (Bld) [#/Vol] 4.85 10*6/uL 3.60-5.00 [facility] Serum or plasma calcium teagan urement (mass/volume)Ordered By: Alaina Arce on 08-17-2021 Calcium [Mass/Vol] 8.9 mg/dL 8.2-10.2 [facility] Serum or plasma chloride sophia surement (moles/volume)Ordered By: Alaina Arce on 08-17-2021 Chloride [Moles/Vol] 101 mmol/L 95-114 [facility] Serum or plasma glucose teagan urement (mass/volume)Ordered By: Alaina Arce on 08-17-2021 Glucose [Mass/Vol] 132 mg/dL 70-100 [facility] Comment on above: ADA recommended refe rence range Random Glucose Reference Range is dependent on time and content of last meal. Glucose of more than 200 mg/dL in a nonstressed, ambulatory subject supports the diagnosis of Diabetes Mellitus. Serum or plasma potassium me asurement (moles/volume)Ordered By: Alaina Arce on 08-17-2021 Potassium [Moles/Vol] 2.9 mmol/L 3.5-5.1 [facility] Comment on above: Results called at 0721 on 08/17/21 Serum or plasma sodium measu rement (moles/volume)Ordered By: Alaina Arce on 08-17-2021 Sodium [Moles/Vol] 137 mmol/L 136-146 [facility] Serum or plasma total carbon dioxide measurement (moles/volume)Ordered By: Alaina Arce on 08-17-2021 CO2 [Moles/Vol] 25.3 mmol/L 22.0-30.0 [facility] Serum or plasma urea nitroge n measurement (mass/volume)Ordered By: Alaina Arce on 08-17-2021 Urea nitrogen [Mass/Vol] 17 mg/dL 9-23 [facility] Albumin [Mass/volume] in Ser um or PlasmaOrdered By: Alaina Arce on 08-16-2021 Albumin [Mass/Vol] 3.1 g/dL 3.2-5.5 [facility] Globulin Calc (S) [Mass/Vol] Ordered By: Alaina Arce on 08-16-2021 Globulin (S) [Mass/Vol] 3.0 g/dL [facility] Protein [Mass/volume] in Ser um or PlasmaOrdered By: Alaina Arce on 08-16-2021 Protein [Mass/Vol] 6.1 g/dL 6.1-7.9 [facility] Serum or plasma alanine spencer otransferase measurement without P-5'-P (enzymatic activiOrdered By: Alaina Arce on 08-16-2021 ALT No additional P-5'-P [Catalytic activity/Vol] 57 U/L 10-60 [facility] Serum or plasma albumin/glob ulin mass ratioOrdered By: Alaina Arce on 08-16-2021 Albumin/Globulin [Mass ratio] 1.0 {ratio} [facility] Serum or plasma alkaline calvin sphatase measurement (enzymatic activity/volume)Ordered By: Alaina Arce on 08-16-2021 ALP [Catalytic activity/Vol] 76 U/L 32-92 [facility] Serum or plasma aspartate am inotransferase measurement (enzymatic activity/volume)Ordered By: Alaina Arce on 08-16-2021 AST [Catalytic activity/Vol] 47 U/L 10-42 [facility] Serum or plasma total biliru bin measurement (mass/volume)Ordered By: Alaina Arce on 08-16-2021 Bilirubin [Mass/Vol] 1.5 mg/dL 0.3-1.2 [facility] Comment on above: Samples from patient s who have taken Naproxen have shown spurious elevation in Total Bilirubin levels. A metabolite of Naproxen, O-desmethylnaproxen, has been shown to interfere with the Jendrassik-Grof method for measuring Total Bilirubin. Amphetamine Screen Ql (U)Ord ered By: Alaina Arce on 08-15-2021 Amphetamines Ql (U) Negative Negative [facility] Antithrombin measurement (un its/volume) in platelet poor plasma by chromogenic methodOrdered By: Janet Hamm on 08-15-2021 Antithrombin Chromogenic method Qn (PPP) 113 % 75-135 [facility] Comment on above: Direct Xa inhibitor anticoagulants such as rivaroxaban, apixaban and edoxaban will lead to spuriously elevated antithrombin activity levels possibly masking a deficiency. Barbiturates [Presence] in U rineOrdered By: Alaina Arce on 08-15-2021 Barbiturates Ql (U) Negative Negative [facility] Benzodiazepines [Presence] i n UrineOrdered By: Alaina Arce on 08-15-2021 Benzodiazepines Ql (U) Negative Negative [facility] Beta 2 glycoprotein 1 IgG Ab [Units/volume] in SerumOrdered By: Janet Hamm on 08-15-2021 Beta 2 glycoprotein 1 IgG Qn (S) <9 0-20 [facility] Comment on above: Result Units: GPI Ig [...] glycoprotein 1 IgM Qn (S) <9 0-32 [facility] Comment on above: Result Units: GPI Ig [...] 08-15-2021 Cannabinoids Screen Ql (U) Negative Negative [facility] Comment on above: These are unconfirme d results and should not be used for legal purposes. Drug Cut-Off Concentration: AMPH 1000 ng/mL DRAKE 200 ng/mL UNIQUE 200 ng/mL COCM 300 ng/mL OP 300 ng/mL PCP 25 ng/mL THC 20 ng/mL Cardiolipin IgG Ab [Units/vo lume] in Serum by ImmunoassayOrdered By: Janet Hamm on 08-15-2021 Cardiolipin IgG IA Qn (S) <9 GPL U/mL 0-14 [facility] Comment on above: Negative: <15 Indeterminate: 15 - 20 Low-Med Positive: >20 - 80 High Positive: >80 Cardiolipin IgM Ab [Units/vo lume] in Serum by ImmunoassayOrdered By: Janet Hamm on 08-15-2021 Cardiolipin IgM IA Qn (S) 17 MPL U/mL 0-12 [facility] Comment on above: Negative: <13 Indeterminate: 13 - 20 Low-Med Positive: >20 - 80 High Positive: >80 Cholesterol [Mass/volume] in Serum or PlasmaOrdered By: Janet Hamm on 08-15-2021 Cholesterol [Mass/Vol] 259 mg/dL 140-200 [facility] Comment on above: Chol less than 200 m g/dl low risk Chol 201-239 mg/dl borderline risk Chol 240 mg/dl and greater high risk Cholesterol in LDL Calc [Mas s/Vol]Ordered By: Janet Hamm on 08-15-2021 Cholesterol in LDL [Mass/Vol] 176 mg/dL 0-100 [facility] Comment on above: LDL ATP III CLASSIFI CATION LDL less than 100 mg/dL Optimal LDL 100-129 mg/dL Near or above optimal LDL 130-159 mg/dL Borderline high LDL 160-189 mg/dL High LDL greater than 189 mg/dL Very high Cholesterol in VLDL Calc [Ma ss/Vol]Ordered By: Janet Hamm on 08-15-2021 Cholesterol in VLDL [Mass/Vol] 32 mg/dL [facility] Dilute Vinay's viper venom timeOrdered By: Janet Hamm on 08-15-2021 dRVVT Coag (PPP) [Time] 45.5 s 0.0-47.0 [facility] Free protein S measurementOr dered By: Janet Hamm on 08-15-2021 Protein S Free Ag IA Qn (PPP) 134 % 61-136 [facility] Functional protein C measure mentOrdered By: Janet Hamm on 08-15-2021 Protein C actual/normal Chromogenic method (PPP) [Rel catalytic activity/Vol] 158 % 73-180 [facility] Laboratory - Drug toxicology Ordered By: Alaina Arce on 08-15-2021 Opiates Ql (U) Negative Negative [facility] Lupus anticoagulant [Interpr etation] in Platelet poor plasmaOrdered By: Janet Hamm on 08-15-2021 Lupus anticoagulant (PPP) [Interp] Comment: . [facility] Comment on above: No lupus anticoagula nt was detected. No Panel InformationOrdered By: Janet Hamm on 08-15-2021 Activated Protein C Resist Confirm 2.6 ratio 2.2-3.5 [facility] Comment on above: The APCR result may be falsely increased (masking an abnormal, low APCR result) in patients on direct Xa inhibitor (e.g., rivaroxaban, apixaban, edoxaban) or a direct thrombin inhibitor (e.g., dabigatran) anticoagulant therapy due to assay interference by these drugs. Phencyclidine Screen Ql (U)O rdered By: Alaina Arce on 08-15-2021 Phencyclidine Ql (U) Negative Negative [facility] Plasminogen measurementOrder ed By: Janet Hamm on 08-15-2021 Plasminogen actual/normal Chromogenic method (PPP) [Rel catalytic activity/Vol] 119 % 70-150 [facility] Platelet poor plasma ratio o f lupus anticoagulant-sensitive activated partial thromboOrdered By: Janet Hamm on 08-15-2021 aPTT.lupus sensitive.excess phospholipid actual/normal Coag (PPP) [Relative time] 38.6 sec 0.0-47.6 [facility] Prothrombin gene [id number] mut ation detectionOrdered By: Janet Hamm on 08-15-2021 F2 gene targeted mutation analysis Molgen Nom (Bld/Tiss) See comment . [facility] Comment on above: Result: c.*97G>A - N [...] the F2 gene and a c.1601G>A (p. [id number]) variant in the F5 gene (commonly referred to as Factor V Leiden) have an approximately 20- fold increased risk for venous thromboembolism. Risks are likely to be even higher in more complex genotype combinations involving the F2 c.*97G>A variant and Factor V Leiden (PMID: 04119760). Additional risk factors include but are not [...] health care providers to discuss results at [phone] ([phone]). Test Details: Variant analyzed: c.*97G>A, previously referred to as [id number] Methods/Limitations: DNA analysis of the F2 gene [...] developed and its performance characteristics determined by [facility]. It has not been cleared or approved by the Food and Drug Administration. References: Taj S, Briana MCLAUGHLIN, Gilberto R, Bogdan WW, Yanick JH; [employer] Professional Practice and Guidelines Committee. Addendum: [place] [employer] consensus statement on factor V Leiden mutation testing. Zoë Med. 2020Apr 22. doi: 10.1038/a57684-524-53079-m. PMID: 51530910. Edgardo KRISHNA. Prothrombin Thrombophilia. 2005Sep 11 [Updated 2020Mar 24]. In: Rober MP, Thaddeus HH, Iman RA, et al., editors. Aliyah(R) [Internet]. [place] ([place]): [facility]; 6861-2622. Available from: https://www.ncbi.nlm.nih.gov/books/IWI1196/ Ariel S, Briana MCLAUGHLIN, Aakash X, Grady B, Vidal EB, Siobhan P, Anny CS; [employer] Laboratory Director Of Outside Sales Committee. Venous thromboembolism laboratory testing (factor V Leiden and factor II c.*97G>A), 2018 update: a technical standard of the [place] [employer] ([employer]). Zoë Med. 2018 Jan;20(12):3220-2920. doi: 10.1038/x96078-385-1795-q. Epub 2017Nov 22. PMID: 29054253. Evon Negron, PhD, FACMG Otis Guthrie, PhD, FACMG Rehan Goodson, PhD, FACMG Nick Bergeron, PhD, FACMG W Mona Pagan, PhD, FACMG Vee Mera, PhD, FACMG Gregoria Carrasco, PhD, FAC Performed at: [address] [id number] City Distribution Clerk: Harshad Acosta PhD, Phone: [phone] Performed at: [address] [id number] City Distribution Clerk: Veronica Ring MD, Phone: [phone] Performed at: [facility] - [facility] [address] [facility], [place], [place] [id number] City Distribution Clerk: Becky Cabezas [facility], Phone: [phone] Serum or plasma high density lipoprotein (HDL) cholesterol measurementOrdered By: Janet aHmm on 08-15-2021 Cholesterol in HDL [Mass/Vol] 50 mg/dL 35-85 [facility] Comment on above: HDL CHOL ATP-III CLA SSIFICATION Cardiovascular Risk HDL > or equal to 60 mg/dL LOW HDL < 40 mg/dL HIGH Serum or plasma homocysteine measurement (moles/volume)Ordered By: Janet Hamm on 08-15-2021 Homocysteine [Moles/Vol] 12.8 umol/L 0.0-14.5 [facility] Serum or plasma total choles terol/high density lipoprotein (HDL) cholesterol mass ratOrdered By: Janet Hamm on 08-15-2021 Cholesterol.total/Chol esterol in HDL [Mass ratio] 5.2 {ratio} <5.0 [facility] Triglyceride [Mass/volume] i n Serum or PlasmaOrdered By: Janet Hamm on 08-15-2021 Triglyceride [Mass/Vol] 164 mg/dL 35-149 [facility] Comment on above: TRIG ATP III CLASSIF ICATION TRIG less than 150 mg/dL Normal TRIG 150-199 mg/dL Borderline high TRIG 200-500 mg/dL High TRIG greater than 500 mg/dL Very high Standard traceable to the Center for Disease Conrtrol and Prevention (CDC) test method. Urine cocaine detectionOrder ed By: Alaina Arce on 08-15-2021 Cocaine Ql (U) Negative Negative [facility] Urine culture routineOrdered By: Alaina Arce on 08-15-2021 Bacteria identified Cx Nom (U) 2 Days [facility] aPTT.lupus sensitive (LA scr een)Ordered By: Janet Hamm on 08-15-2021 aPTT.lupus sensitive Coag (PPP) [Time] 35.2 sec 0.0-51.9 [facility] aPTT.lupus sensitive/aPTT.sheryl pus sensitive W excess phospholipid (screen to confirm raOrdered By: Janet Hamm on 08-15-2021 aPTT.lupus sensitive/aPTT.lupus sensitive W excess phospholipid Coag (PPP) [Ratio] 0.94 Ratio 0.00-1.34 [facility] Activated partial thrombopla stin time (aPTT) in platelet poor plasma by coagulation aOrdered By: Bong Bansal on 08-14-2021 aPTT Coag (PPP) [Time] 28.2 s 25.1-36.5 [facility] Bacterial blood cultureOrder ed By: Bong Bansal on 08-14-2021 Bacteria identified Cx Nom (Bld) NO GROWTH 5 DAYS [facility] Creatinine [Mass/volume] in UrineOrdered By: Alaina Arce on 08-14-2021 Creatinine (U) [Mass/Vol] 74.6 mg/dL [facility] Comment on above: No reference range e stablished Glucose Glucometer (BldC) [M ass/Vol]Ordered By: Alaina Arce on 08-14-2021 Glucose [Mass/Vol] 102 mg/dL [facility] Comment on above: Random Glucose Refer ence Range is dependent on time and content of last meal. Glucose of more than 200 mg/dL in a nonstressed, ambulatory subject supports the diagnosis of Diabetes Mellitus. Glucose mean value [Mass/vol ume] in Blood Estimated from glycated hemoglobinOrdered By: Janet Hamm on 08-14-2021 Average glucose Estimated from glycated hemoglobin (Bld) [Mass/Vol] 126 mg/dL [facility] Hemoglobin A1c percentageOrd ered By: Janet Hamm on 08-14-2021 HbA1c (Bld) [Mass fraction] 6.0 % 4.3-5.6 [facility] Comment on above: Increased risk for d iabetes: 5.7 - 6.4 diabetes: >6.4 glycemic control for adults with diabetes: <7.0 Laboratory - Chemistry and C hemistry - challengeOrdered By: Alaina Arce on 08-14-2021 Magnesium [Mass/Vol] 2.3 mg/dL 1.6-2.6 [facility] Laboratory - CoagulationOrde red By: Bong Bansal on 06-27-2022 PT Coag (PPP) [Time] 11.8 s 9.0-12.9 [facility] Platelet poor plasma interna tional normalized ratio (INR) by coagulation assay (relatOrdered By: Bong Bansal on 08-14-2021 INR Coag (PPP) [Relative time] 1.1 {INR} [facility] Comment on above: INR Therapeutic Rang e [...] 08-14-2021 Protein (U) [Mass/Vol] 100 mg/dL 0-9 [facility] Renin activityOrdered By: Emma Arce on 08-14-2021 Renin (P) [Catalytic activity/Vol] 27.141 ng/mL/hr 0.167-5.38 0 [facility] Comment on above: This test was develo ped and its performance characteristics determined by [facility]. It has not been cleared or approved by the Food and Drug Administration. Performed at: [facility] [id number] City Distribution Clerk: Veronica Ring MD, Phone: [phone] Serum or plasma aldosterone measurement (mass/volume)Ordered By: Alaina Arce on 08-14-2021 Aldosterone [Mass/Vol] 7.8 ng/dL 0.0-30.0 [facility] Comment on above: This test was develo ped and its performance characteristics determined by [facility]. It has not been cleared or approved by the Food and Drug Administration. Performed at: [facility] [id number] City Distribution Clerk: Veronica Ring MD, Phone: [phone] Urine protein/creatinine rat ioOrdered By: Alaina Arce on 08-14-2021 Protein/Creatinine (U) [Ratio] 1340 mg/g{Cre} 0-200 [facility] Urine sodium measurement (mo les/volume)Ordered By: Alaina Arce on 08-14-2021 Sodium (U) [Moles/Vol] 54.0 mmol/L F [facility] Comment on above: No reference range e stablished AMYLASEon 08-13-2021 Amylase [Catalytic activity/Vol] 80 U/L Normal 25-115 [facility] Comment on above: Performed By: #### A MY, CMP, LIPA #### [facility] [address] [place] [address] Dr. Moreno Amato Automated erythrocytes count in urine sediment (number/area)Ordered By: Alaina Arce on 08-13-2021 RBC Auto (Urine sed) [#/Area] 5-9 [HPF] 0-4 [facility] Automated leukocytes count i n urine sediment (number/area)Ordered By: Alaina Arce on 08-13-2021 WBC Auto (Urine sed) [#/Area] 20-49 [HPF] 0-4 [facility] Bilirubin Test strip Ql (U)O rdered By: Alaina Arce on 08-13-2021 Bilirubin Ql (U) Negative Negative [facility] CBC AUTO DIFFon 08-13-2021 BASO # 0.1 103/ul Normal 0.0-0.1 [facility] Comment on above: Performed By: #### C BC #### [facility] [address] [place] [address] Dr. Moreno Amato Basophils/100 WBC (Bld) 0.6 % Normal 0.2-2.0 [facility] Comment on above: Performed By: #### C BC #### [facility] [address] [address] [address] Moreno Amato EO # 0.1 103/ul Normal 0.0-0.7 [facility] Comment on above: Performed By: #### C BC #### [facility] [address] [place] [address] Dr. Moreno Amato Eosinophils/100 WBC (Bld) 0.6 % Critically low 0.9-7.0 [facility] Comment on above: Performed By: #### C BC #### [facility] [address] [place] [address] Dr. Moreno Amato Erythrocyte distribution width (RBC) [Ratio] 11.9 % Normal 11.0-15.0 [facility] Comment on above: Performed By: #### C BC #### [facility] [address] [place] [address] Dr. Moreno Amato Hematocrit (Bld) [Volume fraction] 51.0 % Critically high 36.0-48.0 [facility] Comment on above: Performed By: #### C BC #### [facility] [address] [place] [address] Dr. Moreno Amato Hemoglobin (Bld) [Mass/Vol] 18.2 g/dL Critically high 12.0-16.0 [facility] Comment on above: Performed By: #### C BC #### [facility] [address] [place] [address] Dr. Moreno Amato IG # 0.04 10e3/ul Critically high 0.00-0.03 [facility] Comment on above: Performed By: #### C BC #### [facility] [address] [place] [address] Dr. Moreno Amato IG % 0.3 % Normal 0.0-0.5 [facility] Comment on above: Performed By: #### C BC #### [facility] [address] [place] [address] Dr. Moreno Amato LYMPH # 2.2 103/ul Normal 1.2-3.8 [facility] Comment on above: Performed By: #### C BC #### [facility] [address] [place] [address] Dr. Moreno Amato Lymphocytes/100 WBC (Bld) 17.1 % Critically low 20.5-60.0 [facility] Comment on above: Performed By: #### C BC #### [facility] [address] [place] [address] Dr. Moreno Amato MANUAL DIFF REQ NO Normal [facility] Comment on above: Performed By: #### C BC #### [facility] [address] [address] [address] Moreno Amato MCH (RBC) [Entitic mass] 30.4 pg Normal 26.7-34.0 [facility] Comment on above: Performed By: #### C BC #### [facility] [address] [place] [address] Dr. Moreno Amato MCHC (RBC) [Mass/Vol] 35.7 g/dL Critically high 29.9-35.2 [facility] Comment on above: Performed By: #### C BC #### [facility] [address] [place] [address] Dr. Moreno Amato MCV (RBC) [Entitic vol] 85.1 fL Normal 81.0-99.0 [facility] Comment on above: Performed By: #### C BC #### [facility] [address] [place] [address] Dr. Moreno Amato MONO # 1.3 103/ul Critically high 0.3-0.8 [facility] Comment on above: Performed By: #### C BC #### [facility] [address] [place] [address] Dr. Moreno Amato Monocytes/100 WBC (Bld) 10.0 % Normal 1.7-12.0 [facility] Comment on above: Performed By: #### C BC #### [facility] [address] [place] [address] Dr. Moreno Amato NEUT # 9.3 103/ul Critically high 1.4-6.5 [facility] Comment on above: Performed By: #### C BC #### [facility] [address] [place] [address] Dr. Moreno Amato Neutrophils/100 WBC (Bld) 71.4 % Normal 43.0-75.0 [facility] Comment on above: Performed By: #### C BC #### [facility] [address] [place] [address] Dr. Moreno Amato Platelet mean volume (Bld) [Entitic vol] 9.8 fL Normal 9.5-13.5 [facility] Comment on above: Performed By: #### C BC #### [facility] [address], [place] [address] Dr. Moreno Amato PLT 242 103/ul Normal 150-450 [facility] Comment on above: Performed By: #### C BC #### [facility] [address], [place] [address] Dr. Moreno Amato RBC 5.99 106/ul Critically high 4.20-5.40 [facility] Comment on above: Performed By: #### C BC #### [facility] [address], [place] [address] Dr. Moreno Amato WBC 13.0 103/ul Critically high 4.0-11.0 [facility] Comment on above: Performed By: #### C BC #### [facility] [address], [place] [address] ABD/PELVIS WO CONon [...] Vinay MANN Date: 2021-08-13 03:36 Normal [facility] CT STROKE HEAD WOon 08-14-[address] [...] MAVIS ROSSI Date: 2021-08-13 07:39 Normal [facility] CULTURE URINEon 08-13-2021 CULTURE URINE Culture Observations : LIGHT GROWTH OF MIXED GENITAL ZOE. NO POTENTIAL PATHOGENS SEEN. Normal [facility] Comment on above: Performed By: #### A MY, CMP, LIPA #### [facility] [address] [place] [address] Dr. Moreno Amato Color Auto (U)Ordered By: Emma Arce on 08-13-2021 Color (U) Yellow [facility] Covid-19 PCR (CVDTBH)on 07-20 SARS-CoV-2 (COVID-19) RNA ELISA+probe Ql (Unsp spec) Not detected Normal NOT DETECTED [facility] Comment on above: Result Comment: When diagnostic [...] for this test is supported by the [employer] [place] of Health and Human Service's declaration that [...] used). Performed By: #### C VDTB #### [facility] [address] [place] [address] Dr. Moreno Amato ER URINE PROFILEon 2 Bilirubin Ql (U) Negative Normal NEGATIVE [facility] Comment on above: Performed By: #### E DAYANNA UMICRO #### [facility] [address] [place] [address] Dr. Moreno Amato Clarity (U) CLEAR Normal CLEAR [facility] Comment on above: Performed By: #### E DAYANNA UMICRO #### [facility] [address] [place] [address] Dr. Moreno Amato Color (U) LT. YELLOW Normal YELLOW [facility] Comment on above: Performed By: #### E DAYANNA UMICRO #### [facility] [address] [place] [address] Dr. Moreno Amato ERUAHD A micrscopic examina tion will be performed if indicated. Normal [facility] Comment on above: Performed By: #### E RUR, UMICRO #### [facility] [address] [place] [address] Dr. Moreno Amato Glucose Ql (U) Negative Normal NEGATIVE [facility] Comment on above: Performed By: #### E RUR, UMICRO #### [facility] [address] [place] [address] Dr. Moreno Amato Hemoglobin Ql (U) MODERATE Abnormal NEGATIVE [facility] Comment on above: Performed By: #### E RUR, UMICRO #### [facility] [address] [place] [address] Dr. Moreno Amato Ketones Ql (U) Negative Normal NEGATIVE [facility] Comment on above: Performed By: #### SULAIMAN FRANCISCORO #### [facility] [address] [place] [address] Dr. Moreno Amato LEUKOCYTES SMALL Abnormal NEGATIVE [facility] Comment on above: Performed By: #### SULAIMAN FRANCISCORO #### [facility] [address] [place] [address] Dr. Moreno Amato Nitrite Ql (U) Positive Abnormal NEGATIVE [facility] Comment on above: Performed By: #### SULAIMAN FRANCISCORO #### [facility] [address] [place] [address] Dr. Moreno Amato pH (U) 6.0 [pH] Normal 5-9 [facility] Comment on above: Performed By: #### SULAIMAN FRANCISCORO #### [facility] [address] [place] [address] Dr. Moreno Amato SPEC GRAVITY 1.020 Normal 1.005-<=1. 025 [facility] Comment on above: Performed By: #### SULAIMAN FRANCISCORO #### [facility] [address] [place] [address] Dr. Moreno Amato UA PROTEIN >300 Abnormal NEGATIVE/ TRACE [facility] Comment on above: Performed By: #### SULAIMAN FRANCISCORO #### [facility] [address] [place] [address] Dr. Moreno Amato UR MICRO IND INDICATED Normal [facility] Comment on above: Performed By: #### SULAIMAN FRANCISCORO #### [facility] [address] [place] [address] Dr. Moreno Amato Urobilinogen Qn (U) 0.2 {[place]'U}/dL Normal 0.2 - 1. 0 [facility] Comment on above: Performed By: #### SULAIMAN FRANCISCORO #### [facility] [address] [address] [address] Moreno Amato Ketones Auto test strip (U) [Mass/Vol]Ordered By: Alaina Arce on 08-13-2021 Ketones (U) [Mass/Vol] Negative Negative [facility] LACTATE/LACTIC ACIDon 2021 Lactate [Moles/Vol] 1.1 mmol/L Normal 0.4-1.9 [facility] Comment on above: Performed By: #### A MY, CMP, LIPA #### [facility] [address] [place] [address] Dr. Moreno Amato LIPASEon 08-13-2021 Lipase [Catalytic activity/Vol] 524.0 U/L Critically high 73.0-393.0 [facility] Comment on above: Performed By: #### A MY, CMP, LIPA #### [facility] [address] [place] [address] Dr. Moreno Amato Laboratory - Chemistry and C hemistry - challengeOrdered By: Alaina Arce on 08-13-2021 Lactate [Moles/Vol] 1.6 mmol/L 0.5-2.2 [facility] - UrinalysisOrder ed By: Alaina Arce on 08-13-2021 Hyaline casts LM Ql (Urine sed) 9-19 [LPF] 0-8 [facility] Nitrite Test strip Ql (U)Ord ered By: Alaina Arce on 08-13-2021 Nitrite Ql (U) Positive Negative [facility] POINT OF CARE GLUCOSEon 07-20 Glucose [Mass/Vol] 129 mg/dL Critically high 74-106 [facility] Comment on above: Performed By: #### A MY, CMP, LIPA #### [facility] [address] [place] [address] Dr. Moreno Amato PROF 14(COMP METB)on 022 Albumin [Mass/Vol] 3.4 g/dL Normal 3.4-5.0 [facility] Comment on above: Performed By: #### A MY, CMP, LIPA #### [facility] [address] [address] [address] Moreno Amato Albumin/Globulin [Mass ratio] 0.8 {ratio} Normal [facility] Comment on above: Performed By: #### A MY, CMP, LIPA #### [facility] [address] [address] [address] Moreno Amato ALP [Catalytic activity/Vol] 105 U/L Normal 46-116 [facility] Comment on above: Performed By: #### A MY, CMP, LIPA #### [facility] [address] [place] [address] Dr. Moreno Amato ALT [Catalytic activity/Vol] 22 U/L Normal 14-59 [facility] Comment on above: Performed By: #### A MY, CMP, LIPA #### [facility] [address] [place] [address] Dr. Moreno Amato Anion gap [Moles/Vol] 11.6 mmol/L Normal [facility] Comment on above: Performed By: #### A MY, CMP, LIPA #### [facility] [address] [place] [address] Dr. Moreno Amato AST [Catalytic activity/Vol] 22 U/L Normal 15-37 [facility] Comment on above: Performed By: #### A MY, CMP, LIPA #### [facility] [address] [place] [address] Dr. Moreno Amato Bilirubin [Mass/Vol] 0.7 mg/dL Normal 0.2-1.0 [facility] [place] Comment on above: Performed By: #### A MY, CMP, LIPA #### [facility] [address] [place] [address] Dr. Moreno Amato Calcium [Mass/Vol] 9.6 mg/dL Normal 8.5-10.1 [facility] Comment on above: Performed By: #### A MY, CMP, LIPA #### [facility] [address] [address] [address] Moreno Amato Chloride [Moles/Vol] 97 mmol/L Critically low 98-107 [facility] [place] Comment on above: Performed By: #### A MY, CMP, LIPA #### [facility] [address] [address] [address] Moreno Amato CO2 [Moles/Vol] 31.2 mmol/L Normal 21.0-32.0 [facility] Comment on above: Performed By: #### A MY, CMP, LIPA #### [facility] [address] [place] [address] Dr. Moreno Amato Creatinine [Mass/Vol] 1.64 mg/dL Critically high 0.55-1.02 [facility] [place] Comment on above: Performed By: #### A MY, CMP, LIPA #### [facility] [address] [place] [address] Dr. Moreno Amato EGFR-AF GERMAN 39 mL/min/1.73m2 Critically low >=60 [facility] [place] Comment on above: Performed By: #### A MY, CMP, LIPA #### [facility] [address] [place] [address] Dr. Moreno Amato EGFR-NON AF GERMAN 32 mL/min/1.73m2 Critically low >=60 [facility] [place] Comment on above: Performed By: #### A MY, CMP, LIPA #### [facility] [address] [place] [address] Dr. Moreno Amato Globulin (S) [Mass/Vol] 4.1 g/dL Normal [facility] [place] Comment on above: Performed By: #### A MY, CMP, LIPA #### [facility] [address] [place] [address] Dr. Moreno Amato Glucose [Mass/Vol] 110 mg/dL Critically high 74-106 [facility] Comment on above: Performed By: #### A MY, CMP, LIPA #### [facility] [address] [place] [address] Dr. Moreno Amato Potassium [Moles/Vol] 2.8 mmol/L Critically low 3.5-5.1 [facility] [place] Comment on above: Performed By: #### A MY, CMP, LIPA #### [facility] [address] [place] [address] Dr. Moreno Amato Protein [Mass/Vol] 7.5 g/dL Normal 6.4-8.2 [facility] Comment on above: Performed By: #### A TOMMY CMP, LIPA #### [facility] [address] [address] [address] Moreno Amato Sodium [Moles/Vol] 137 mmol/L Normal 136-145 [facility] Comment on above: Performed By: #### A TOMMY CMP, LIPA #### [facility] [address] [address] [address] Moreno Amato Urea nitrogen [Mass/Vol] 26.0 mg/dL Critically high 7.0-18.0 [facility] [place] Comment on above: Performed By: #### A TOMMY CMP, LIPA #### [facility] [address] [address] [address] Moreno Amato Urea nitrogen/Creatinine [Mass ratio] 15.9 mg/mg Normal [facility] [place] Comment on above: Performed By: #### A TOMMY CMP, LIPA #### [facility] [address] [address] [address] Moreno Amato Protein Auto test strip (U) [Mass/Vol]Ordered By: Alaina Arce on 08-13-2021 Protein (U) [Mass/Vol] mg/dL Negative [facility] Specific gravity Auto test s trip (U) [Rel density]Ordered By: Alaina Arce on 08-13-2021 Specific gravity (U) [Rel density] 1.017 1.001-1.03 0 [facility] Squamous epithelial cells de tection in urine sediment by light microscopyOrdered By: Alaina Arce on 08-13-2021 Epithelial cells.squamous LM Ql (Urine sed) 3-4 [HPF] 0-2 [facility] TROPONIN, HIGH SENSITIVITYon 08-13-2021 HSTROP 91.0 pg/mL Critically high 4.0-51.3 [facility] Comment on above: Result Comment: CUT- OFF POINTS HAVE BEEN ESTABLISHED BASED ON THE FOURTH UNIVERSAL DEFINITIONS OF MYOCARDIAL INFARCTION. THE UPPER REFERENCE LIMIT (URL) OF TROPONIN, DEFINED THE 99TH PERCENTILE OF cTnI DISTRIBUTION IN A REFERENCE POPULATION, HAS BEEN CONFIRMED THE DECISION THRESHOLD FOR [place] DIAGNOSIS. Performed By: #### A MY, CMP, LIPA #### [facility] [address] [place] [address] Dr. Moreno Amato HSTROP 109.0 pg/mL Critically high 4.0-51.3 [facility] Comment on above: Result Comment: CUT- OFF POINTS HAVE BEEN ESTABLISHED BASED ON THE FOURTH UNIVERSAL DEFINITIONS OF MYOCARDIAL INFARCTION. THE UPPER REFERENCE LIMIT (URL) OF TROPONIN, DEFINED THE 99TH PERCENTILE OF cTnI DISTRIBUTION IN A REFERENCE POPULATION, HAS BEEN CONFIRMED THE DECISION THRESHOLD FOR [place] DIAGNOSIS. Performed By: #### H STROPN #### [facility] [address] [place] [address] Dr. Moreno Amato Troponin I.cardiac [Mass/vol ume] in Serum or Plasma by High sensitivity methodOrdered By: Alaina Arce on 08-13-2021 Troponin I.cardiac High sensitivity method [Mass/Vol] 50 pg/mL 0-15 [facility] Comment on above: Critical value result called at 1736 on 08/13/21 URINE MICROSCOPIC ONLYon BACTERIA SMALL Abnormal NONE SEEN [facility] Comment on above: Performed By: #### Rupal ALAN UMICRO #### [facility] [address] [place] [address] Dr. Moreno Amato Bacteria identified Cx Nom (U) INDICATED Normal [facility] Comment on above: Performed By: #### E RUR UMICRO #### [facility] [address] [place] [address] Dr. Moreno Amato CAST SEEN Abnormal NONE SEEN [facility] Comment on above: Performed By: #### E RUR, UMICRO #### [facility] [address] [place] [address] Dr. Moreno Amato Crystals LM Nom (Urine sed) NONE SEEN Normal NONE SEEN [facility] Comment on above: Performed By: #### E RUR, UMICRO #### [facility] [address] [place] [address] Dr. Moreno Amato Epithelial cells LM Ql (Urine sed) FEW Abnormal NONE SEEN /RARE [facility] Comment on above: Performed By: #### E ANNR, UMICRO #### [facility] [address] [address] [address] Moreno Amato HYALINE CAST FEW Normal [facility] Comment on above: Performed By: #### E RUR, UMICRO #### [facility] [address] [address] [address] Moreno Amato MUCOUS NONE SEEN Normal NONE SEEN [facility] [place] Comment on above: Performed By: #### Rupal ALAN, UMICRO #### [facility] [address] [address] [address] Moreno Amato RBC 2-5 Abnormal 0-2 [facility] [place] Comment on above: Performed By: #### ISHAN FRANCISCOICRO #### [facility] [address] [address] [address] Moreno Amato WBC 20-50 Abnormal NONE SEEN [facility] [place] Comment on above: Performed By: #### ISHAN FRANCISCOICRO #### [facility] [address] [address] [address] Moreno Amato Urine bacteria detection by automated methodOrdered By: Alaina Arce on 08-13-2021 Bacteria Auto Ql (U) None seen None Seen [facility] Urine clarity by refractomet ry automatedOrdered By: Alaina Arce on 08-13-2021 Clarity Refractometry automated (U) Cloudy Clear [facility] Urine culture routineOrdered By: Alaina Arce on 08-13-2021 Bacteria identified Cx Nom (U) 2 Days [facility] Urine glucose measurement by automated test strip (mass/volume)Ordered By: Alaina Arce on 08-13-2021 Glucose Auto test strip (U) [Mass/Vol] Normal mg/dL Normal [facility] Urine hemoglobin detection b y automated test stripOrdered By: Alaina Arce on 08-13-2021 Hemoglobin Auto test strip Ql (U) 1+ Negative [facility] Urine leukocyte esterase det ection by automated test stripOrdered By: Alaina Arce on 08-13-2021 Leukocyte esterase Auto test strip Ql (U) 1+ Negative [facility] Urobilinogen Auto test strip (U) [Mass/Vol]Ordered By: Alaina Arce on 08-13-2021 Urobilinogen (U) [Mass/Vol] Normal mg/dL Normal [facility] XR CHEST 1 Von 08-13-2021 XR CHEST [...] by: Vinay MANN Date: 2021-08-13 06:28 Normal [facility] pH Auto test strip (U)Ordere d By: Alaina Arce on 08-13-2021 pH (U) 5.5 [pH] 5.0-9.0 [facility] KYARA DIGITAL SCREEN SELF REFERRAL W OR WO CAD BILATERALon 12-16-2020 [facility] KYARA DIGITAL SCREEN SELF REFERRAL W OR [...] to the patient regarding the results. The [employer] recommends annual mammograms for women 40 years and older. Interpreted by: Uvaldo Read Signed by: Uvaldo Read 12/16/20 Final result Normal [facility] Vital Signs Date Time Vital Sign Value Performing Clinician Facility 02-14-2023 09:56-0500 Inhaled oxygen flow rate 1 L/min MD Shaikh Thompson Work Phone: [facility] 02-14-2023 08:00-0500 Body temperature 97.7 [degF] MD Shaikh Thompson Work Phone: [facility] 02-14-2023 08:00-0500 Diastolic blood pressure 69 mm[Hg] MD Shaikh Thompson Work Phone: [facility] 02-14-2023 08:00-0500 Heart rate 78 /min MD Shaikh Thompson Work Phone: [facility] 02-14-2023 08:00-0500 Respiratory rate 20 /min MD Shaikh Thompson Work Phone: [facility] 02-14-2023 08:00-0500 SaO2% (BldA) [Mass fraction] 95 % MD Shaikh Thompson Work Phone: [facility] 02-14-2023 08:00-0500 Systolic blood pressure 118 mm[Hg] MD Shaikh Thompson Work Phone: [facility] 02-14-2023 05:51-0500 Body weight 69.9 kg MD Shaikh Thompson Work Phone: [facility] 02-13-2023 12:53-0500 Body height 157.48 cm MD Shaikh Thompson Work Phone: [facility] 02-10-2023 17:00-0500 Heart rate 85 /min [facility] Alvino [facility] 02-10-2023 16:38-0500 Diastolic blood pressure 80 mm[Hg] [facility] 02-10-2023 16:38-0500 Heart rate 80 /min [facility] 02-10-2023 16:38-0500 Mean blood pressure 99 mm[Hg] [facility] 02-10-2023 16:38-0500 Respiratory rate 18 /min [facility] 02-10-2023 16:38-0500 SaO2% (BldA) [Mass fraction] 95 % [facility] 02-10-2023 16:38-0500 Systolic blood pressure 138 mm[Hg] [facility] 02-10-2023 15:40-0500 Diastolic blood pressure 92 mm[Hg] [facility] 02-10-2023 15:40-0500 Heart rate 90 /min [facility] 02-10-2023 15:40-0500 Mean blood pressure 105 mm[Hg] [facility] 02-10-2023 15:40-0500 Respiratory rate 20 /min [facility] 02-10-2023 15:40-0500 SaO2% (BldA) [Mass fraction] 94 % [facility] 02-10-2023 15:40-0500 Systolic blood pressure 132 mm[Hg] [facility] 02-10-2023 14:42-0500 Body temperature 98.24 [degF] [facility] 02-10-2023 14:42-0500 Heart rate 93 /min [facility] 02-10-2023 14:42-0500 Respiratory rate 24 /min [facility] 02-10-2023 14:00-0500 Blood Pressure Location Jaxson Johnson [facility] 02-10-2023 14:00-0500 Body temperature 96.8 [degF] Jaxson Johnson [facility] 02-10-2023 14:00-0500 Diastolic blood pressure 90 mm[Hg] Jaxson Johnson [facility] 02-10-2023 14:00-0500 Heart rate 88 /min Jaxson Johnson [facility] 02-10-2023 14:00-0500 SaO2% (BldA) [Mass fraction] 92 % Jaxson Johnson [facility] 02-10-2023 14:00-0500 Systolic blood pressure 140 mm[Hg] Jaxson Johnson [facility] 10-15-2022 17:36-0400 Blood Pressure Location Damion Cheek [facility] 10-15-2022 17:36-0400 Body temperature 97.34 [degF] Damion Cheek [facility] 10-15-2022 17:36-0400 Diastolic blood pressure 76 mm[Hg] Damion Cheek [facility] 10-15-2022 17:36-0400 Heart rate 60 /min Damion Cheek [facility] 10-15-2022 17:36-0400 SaO2% (BldA) [Mass fraction] 96 % Dmaion Cheek [facility] 10-15-2022 17:36-0400 Systolic blood pressure 122 mm[Hg] Damion Cheek [facility] 10-09-2022 14:24-0400 Body height 157.5 cm Gurmeet Ojeda MD Work Phone: [facility] 10-09-2022 14:24-0400 Body temperature 97.5 [degF] Gurmeet Ojeda MD Work Phone: [facility] 10-09-2022 14:24-0400 Body weight 71.26 kg Gurmeet Ojeda MD Work Phone: [facility] 10-09-2022 14:24-0400 Diastolic blood pressure 60 mm[Hg] Gurmeet Ojeda MD Work Phone: [facility] 10-09-2022 14:24-0400 Heart rate 60 /min Gurmeet Ojeda MD Work Phone: [facility] 10-09-2022 14:24-0400 Systolic blood pressure 91 mm[Hg] Gurmeet jOeda MD Work Phone: [facility] 08-09-2022 14:56-0400 Body height 157.5 cm Gurmeet Ojeda MD Work Phone: [facility] 08-09-2022 14:56-0400 Body temperature 97.7 [degF] Gurmeet Ojeda MD Work Phone: [facility] 08-09-2022 14:56-0400 Body weight 72.53 kg Gurmeet Ojeda MD Work Phone: [facility] 08-09-2022 14:56-0400 Diastolic blood pressure 64 mm[Hg] Gurmeet Ojeda MD Work Phone: [facility] 08-09-2022 14:56-0400 Heart rate 65 /min Gurmeet Ojeda MD Work Phone: [facility] 08-09-2022 14:56-0400 Systolic blood pressure 98 mm[Hg] Gurmeet Ojeda MD Work Phone: [facility] 06-14-2022 12:57-0400 Blood Pressure Location Jamie BILLS [facility] 06-14-2022 12:57-0400 Diastolic blood pressure 74 mm[Hg] [facility]-14-[facility]22 12:57-0400 Heart rate 80 /min Ayala SALAM [facility] 06-14-2022 12:57-0400 Respiratory rate 16 /min Ayala SALAM [facility] 06-14-2022 12:57-0400 Systolic blood pressure 118 mm[Hg] Aylaa SALAM [facility] 06-06-2022 10:13-0400 Blood Pressure Location TRUDY NGUYỄN [facility] 06-06-2022 10:13-0400 Diastolic blood pressure 88 mm[Hg] TRUDY NGUYỄN [facility] 06-06-2022 10:13-0400 Heart rate 74 /min TRUDY NGUYỄN [facility] 06-06-2022 10:13-0400 Systolic blood pressure 144 mm[Hg] TRUDY NGUYỄN [facility] 05-23-2022 10:41-0400 Blood Pressure Location TRUDY NGUYỄN [facility] 05-23-2022 10:41-0400 Diastolic blood pressure 85 mm[Hg] TRUDY NGUYỄN [facility] 05-23-2022 10:41-0400 Heart rate 72 /min TRUDY NGUYỄN [facility] 05-23-2022 10:41-0400 Systolic blood pressure 127 mm[Hg] TRUDY NGUYỄN [facility] 04-11-2022 11:01-0500 Blood Pressure Location TRUDY KNOTT [facility] 04-11-2022 11:01-0500 Diastolic blood pressure 88 mm[Hg] TRUDY KNOTT [facility] 04-11-2022 11:01-0500 Heart rate 71 /min TRUDY KNOTT [facility] 04-11-2022 11:01-0500 Systolic blood pressure 146 mm[Hg] TRUDY KNOTT [facility] 03-19-2022 16:35-0500 Body height 163.83 cm Padmini Sam Other [facility] Other 03-19-2022 16:35-0500 Body mass index (BMI) [Ratio] 27.37 kg/m2 Padmini Cecy Other [facility] Other 03-19-2022 16:35-0500 Body temperature 98.9 [degF] Padmini Cecy Other [facility] Other 03-19-2022 16:35-0500 Body weight 73.48 kg Padmini Cecy Other [facility] Other 03-19-2022 16:35-0500 Respiratory rate 18 /min Padmini Cecy Other [facility] Other 03-19-2022 16:35-0500 SaO2% (BldA) [Mass fraction] 96 % Padmini Sam Other [facility] Other 03-13-2022 10:12-0500 Diastolic blood pressure 59 mm[Hg] MD Shaikh Thompson Work Phone: [facility] 03-13-2022 10:12-0500 Heart rate 77 /min MD Shaikh Thompson Work Phone: [facility] 03-13-2022 10:12-0500 Respiratory rate 18 /min MD Shaikh Thompson Work Phone: [facility] 03-13-2022 10:12-0500 SaO2% (BldA) [Mass fraction] 98 % MD Shaikh Thompson Work Phone: [facility] 03-13-2022 10:12-0500 Systolic blood pressure 93 mm[Hg] MD Shaikh Thompson Work Phone: [facility] 03-13-2022 07:54-0500 Body height 162.56 cm MD Shaikh Thompson Work Phone: [facility] 03-13-2022 07:54-0500 Body temperature 98 [degF] MD Shaikh Thompson Work Phone: [facility] 03-13-2022 07:54-0500 Body weight 73.48 kg MD Shaikh Thompson Work Phone: [facility] 03-12-2022 08:58-0500 Body height 160.02 cm Shaikh Donna Work Phone: [facility] DO Work Phone: 03-12-2022 08:58-0500 Body mass index (BMI) [Ratio] 28.7 kg/m2 Shaikh Donna Work Phone: [facility] DO Work Phone: 03-12-2022 08:58-0500 Body surface area Derived from formula 1.77 m2 Shaikh Donna Work Phone: [facility] DO Work Phone: 03-12-2022 08:58-0500 Body weight 73.48 kg Shaikh Donna Work Phone: [facility] DO Work Phone: 03-12-2022 08:58-0500 Diastolic blood pressure 78 mm[Hg] Shaikh Leoneld Work Phone: [facility] DO Work Phone: 03-12-2022 08:58-0500 Heart rate 66 /min Shaikh Leoneld Work Phone: [facility] DO Work Phone: 03-12-2022 08:58-0500 Systolic blood pressure 110 mm[Hg] Shaikh Donna Work Phone: [facility] DO Work Phone: 01-23-2022 12:00-0500 72 1 Shaikh Donna Work Phone: [facility] [place] Work Phone: Comment on above: [id number] 11-09-2021 13:26-0400 Body height 160.02 cm Shaikh Donna Work Phone: [facility] [facility] DO Work Phone: 11-09-2021 13:26-0400 Body mass index (BMI) [Ratio] 27.83 kg/m2 Shaikh Leoneld Work Phone: [facility] DO Work Phone: 11-09-2021 13:26-0400 Body surface area Derived from formula 1.75 m2 Shaikh Leonelyevgeniy Work Phone: [facility] 600 DO Work Phone: 11-09-2021 13:26-0400 Body weight 71.27 kg Shaikh Jabierwad Work Phone: [facility] 600 DO Work Phone: 11-09-2021 13:26-0400 Diastolic blood pressure 82 mm[Hg] Dunbar Fawwad Work Phone: [facility] 600 DO Work Phone: 11-09-2021 13:26-0400 Heart rate 64 /min Shaikh Diyawwad Work Phone: [facility] 600 DO Work Phone: 11-09-2021 13:26-0400 Systolic blood pressure 128 mm[Hg] Shaikh Diyawwad Work Phone: [facility] [address] DO Work Phone: 09-18-2021 10:26-0400 Diastolic blood pressure 80 mm[Hg] Dunbar Fawwad Work Phone: [facility] DO Work Phone: 09-18-2021 10:26-0400 Systolic blood pressure 178 mm[Hg] Shaikh Diyawwad Work Phone: [facility] DO Work Phone: 09-18-2021 10:19-0400 Body height 162.56 cm Dunbar Fawwad Work Phone: [facility] DO Work Phone: 09-18-2021 10:19-0400 Body mass index (BMI) [Ratio] 26.09 kg/m2 Dunbar Fawwad Work Phone: [facility] DO Work Phone: 09-18-2021 10:19-0400 Body surface area Derived from formula 1.74 m2 Shaikh Donna Work Phone: [facility] DO Work Phone: 09-18-2021 10:19-0400 Body weight 68.95 kg Shaikh Leoneld Work Phone: [facility] DO Work Phone: 09-18-2021 10:19-0400 Diastolic blood pressure 80 mm[Hg] Shaikh Leoneld Work Phone: [facility] DO Work Phone: 09-18-2021 10:19-0400 Heart rate 60 /min Shaikh Leoneld Work Phone: [facility] DO Work Phone: 09-18-2021 10:19-0400 Systolic blood pressure 180 mm[Hg] Shaikh Leoneld Work Phone: [facility] DO Work Phone: 08-23-2021 14:00-0400 Body temperature 98.9 [degF] Linn Missler Other [facility] Other 08-23-2021 14:00-0400 Body weight 66.13 kg Linn Missler Other [facility] Other 08-23-2021 14:00-0400 Diastolic blood pressure 87 mm[Hg] Linn Missler Other [facility] Other 08-23-2021 14:00-0400 Respiratory rate 18 /min Linn Missler Other [facility] Other 08-23-2021 14:00-0400 SaO2% (BldA) [Mass fraction] 96 % Linn Byrne Other [facility] Other 08-23-2021 14:00-0400 Systolic blood pressure 137 mm[Hg] Linn Byrne Other [facility] Other 08-17-2021 12:00-0400 Diastolic blood pressure 94 mm[Hg] PHYSICIAN NO [facility] 08-17-2021 12:00-0400 Heart rate 78 /min PHYSICIAN [facility] 08-17-2021 12:00-0400 Respiratory rate 18 /min PHYSICIAN [facility] 08-17-2021 12:00-0400 SaO2% (BldA) [Mass fraction] 95 % PHYSICIAN [facility] 08-17-2021 12:00-0400 Systolic blood pressure 152 mm[Hg] PHYSICIAN [facility] 08-17-2021 08:00-0400 Body temperature 97.5 [degF] PHYSICIAN [facility] 08-17-2021 05:57-0400 Body weight 75.8 kg PHYSICIAN [facility] 08-17-2021 00:44-0400 Inhaled oxygen flow rate 2 L/min PHYSICIAN [facility] 08-16-2021 14:43-0400 Body height 162.56 cm PHYSICIAN [facility] 08-16-2021 14:43-0400 Body mass index (BMI) [Ratio] 25.6 kg/m2 PHYSICIAN [facility] Encounters Encounter Date Encounter Type Care Provider Facility Start: 05-13-2023 End: 05-13-2023 ambulatory SHAIKH DONNA Not Available Start: 03-12-2023 End: 03-12-2023 ambulatory Marquez Beal Facility:[facility] Start: 03-12-2023 End: 03-12-2023 ambulatory MD Shaikh Thompson Work Phone: [facility] Work Phone: Start: 03-12-2023 End: 03-12-2023 Patient encounter procedure MD Shaikh Thompson Work Phone: [facility] [place] Work Phone: Start: 02-19-2023 End: 02-19-2023 ambulatory SHAIKH DONNA Not Available Start: 02-12-2023 End: 02-14-2023 Evaluation and management of inpatient Jacques East Facility:[facility] Start: 02-12-2023 End: 02-14-2023 Evaluation and management of inpatient MD Shaikh Thompson Work Phone: [facility] [place] [facility] Work Phone: Start: 02-10-2023 End: 02-10-2023 Emergency department [facility] Start: 02-10-2023 End: 02-11-2023 ambulatory Jaxson Johnson [facility] Start: 02-10-2023 End: 02-10-2023 Lab Drop off Jaxson Johnson [facility] Start: 02-10-2023 End: 02-10-2023 [facility] Start: 02-10-2023 End: 02-10-2023 Patient encounter procedure Jaxson Johnson [facility] Start: 01-30-2023 End: 01-31-2023 ambulatory TRUDY KNOTT Facility:[facility] Start: 01-30-2023 End: 01-30-2023 Patient encounter procedure TRUDY KNOTT [facility] Start: 10-29-2022 Orders Only Debra naik MD [...] Start: 10-15-2022 End: 10-16-2022 ambulatory SHAIKH DONNA [place] Start: 10-15-2022 End: 10-15-2022 Lab Drop off Damion Cheek [facility] Start: 10-15-2022 End: 10-15-2022 Patient encounter procedure Damion Cheek [facility] Start: 10-15-2022 Rx Renewal Dunbar Donna Work Phone: [facility] 600 DO Work Phone: Start: 10-09-2022 End: 10-10-2022 ambulatory Rosie Harris DO Work Phone: [facility] [place] Start: 10-09-2022 End: 10-09-2022 Patient encounter procedure Gurmeet Ojeda MD Work Phone: [facility] [place] Comment on above: Stage 3 chronic kidn ey disease, unspecified whether stage 3a or 3b CKD (HCC) (Primary Dx); Tobacco abuse; Hypertension, renal disease; Mixed hyperlipidemia; Atrophic kidney, acquired Start: 09-03-2022 End: 09-04-2022 ambulatory Bj TEJEDA Facility:[facility] Start: 08-23-2022 End: 08-24-2022 ambulatory DEBRA FISHMAN Facility:[facility] Start: 08-09-2022 End: 08-09-2022 Patient encounter procedure Gurmeet Ojeda MD Work Phone: Kidney [facility] Comment on above: Stage 3b chronic kid domingo disease (HCC) (Primary Dx); Hypertension, unspecified type; Orthostatic hypotension; Alkalosis; Hypercholesteremia Start: 08-09-2022 End: 08-10-2022 ambulatory Debra Fishman MD Work Phone: Kidney [facility] Start: 08-01-2022 ambulatory TRUDY E NGUYỄN Facili ty:[facility] [place] Start: 07-11-2022 ambulatory DUNBAR FAWWAD Facility: [facility] [place] Start: 06-27-2022 ambulatory TRUDY E NGUYỄN Facili ty:[facility] [place] Start: 06-19-2022 ambulatory DUNBAR H FAWWAD Facilit y:H1 Start: 06-18-2022 ambulatory DUNBAR FAWWAD Facility: [facility] Start: 06-14-2022 End: 06-15-2022 ambulatory Ayala SALAM Facility:[facility] Start: 06-14-2022 End: 06-14-2022 Patient encounter procedure Ayala SALAM [facility] Start: 06-12-2022 End: 06-13-2022 ambulatory DUNBAR H FAWWAD Facility:[facility]1 Start: 06-06-2022 End: 06-07-2022 ambulatory TRUDY Rupal NGUYỄN Facility:[facility] [place] Start: 06-06-2022 End: 06-06-2022 Patient encounter procedure TRUDY Rupal NGUYỄN [facility] [place] Start: 05-30-2022 End: 05-31-2022 ambulatory TRUDY E NGUYỄN Facility:[facility] [place] Start: 05-23-2022 End: 05-24-2022 ambulatory TRUDY E NGUYỄN Facility:[facility] [place] Start: 05-23-2022 End: 05-23-2022 Patient encounter procedure TRUDY E NGUYỄN [facility] [place] Start: 04-30-2022 End: 05-01-2022 ambulatory SHAIKH Enrique THOMPSON Facility:[facility]1 Start: 04-11-2022 End: 04-12-2022 ambulatory TRUDY Rupal KNOTT Facility:[facility] Start: 04-11-2022 End: 04-11-2022 Patient encounter procedure TRUDY KNOTT [facility] Joe Start: 04-05-2022 End: 04-05-2022 ambulatory Kevyn Sharma Other [facility] Other Start: 04-05-2022 Telephone encounter Kevyn Carmichael [employer] Start: 03-27-2022 End: 03-28-[address] MARQUEZ BEAL Facility:H1 Start: 03-19-2022 End: 03-19-2022 ambulatory Padmini Sam Other [facility] Other Start: 03-19-2022 Office outpatient vi sit 15 minutes Padmini Sam [facility] Start: 03-13-2022 End: 03-13-2022 Admission to same day surgery center MD Shaikh Thompson Work Phone: [facility] Work Phone: Start: 03-13-2022 End: 03-13-2022 ambulatory MD Shaikh Thompson Work Phone: [facility] Work Phone: Start: 03-12-2022 Office outpatient vi sit 25 minutes Shaikh Donna Work Phone: [facility] 250 DO Work Phone: Start: 02-28-2022 ambulatory SHAIKH DONNA Facility: [facility] [place] Start: 02-26-2022 End: 02-26-[address] XAVIER STAFFORD . Facility:[facility]1 Start: 02-19-2022 End: 02-20-2022 ambulatory SHAIKH Enrique THOMPSON Facility:[facility]1 Start: 01-29-2022 Chart Update Shaikh Jabierwad Work Phone: [facility] 600 DO Work Phone: Start: 01-23-[address] Marquez Beal II Facility:[id number] Start: 01-23-2022 Patient encounter procedure Shaikh Leoneld Work Phone: [facility] 250 DO Work Phone: Start: 11-16-2021 Rx Renewal Shaikh Jabierwad Work Phone: [facility] 600 DO Work Phone: Start: 11-09-2021 ambulatory Marquez Beal II Facility: Start: 10-30-2021 End: 10-31-2021 ambulatory SHAIKH Enrique THOMPSON Facility:[facility]1 Start: 10-24-2021 Chart Update Shaikh Leoneld Work Phone: [facility] 250 DO Work Phone: Start: 10-17-[address] Marquez Beal II Facility:[id number] Start: 09-18-2021 ambulatory Marquez Beal II Facility: Start: 09-18-2021 Office outpatient vi sit 25 minutes Shaikh Diyawwad Work Phone: [facility] 250 DO Work Phone: Start: 09-18-2021 End: 09-18-2021 Patient encounter procedure PHYSICIAN AXEL [facility] [place] Start: 09-18-2021 ambulatory Marquez Beal II Faci lity:[id number] Start: 08-23-2021 ([facility] CHUCK) [facility] Start: 08-23-2021 End: 08-23-2021 ambulatory Linn Byrne Other [facility] Other Start: 08-23-2021 End: 08-23-2021 Patient encounter procedure PHYSICIAN NO [facility] Start: 08-17-2021 End: 08-17-2021 Patient encounter procedure PHYSICIAN NO [facility]Electrodiagnostics Start: 08-17-2021 ambulatory Marquez chakraborty Suyapahussein II Facility:[id number] Start: 08-16-[address] Jaycob Newman Facility:[id number] Start: 08-15-2021 ambulatory Marquez Hayshussein II Facility:[id number] Start: 08-14-2021 ambulatory Marquez Hayshussein II Facility:[id number] Start: 08-13-2021 End: 08-17-2021 Evaluation and management of inpatient PHYSICIAN NO [facility] [place] [facility] Start: 08-13-2021 End: 08-13-2021 ambulatory Marquez Hayshussein II Facility:[id number] Start: 12-08-2020 End: 12-11-2020 ambulatory [facility] Start: 12-08-2020 End: 12-10-2020 Subsequent hospital visit by physician [facility] Mammography Comment on above: Encounter for [...] 3b CKD (HCC) Expected: 10/10/2023, Expires: 12/10/2023 [facility] Work Phone: Comment on above: Expected: 10/10/2023 , Expires: 12/10/2023 Start: 08-24-2023 SERUM CREATININE SERUM CREATININE Cl [facility] Start: 03-12-2023 FUV, Provider: Marquez Beal, Status: Pen, Time: 11:00 AM FUV, Provider: Marquez Beal, Status: Molina, Time: 11:00 AM [facility] 250 DO Work Phone: Start: 02-14-2023 [facility] Start: 02-12-2023 Microbial culture of sputum [facility] Start: 02-12-2023 Aerobic microbial culture Aerobic Cu lture [facility] Start: 02-12-[address] [facility] Start: 02-12-2023 [facility] Start: 10-19-2022 Influenza vaccination [facility] Start: 08-09-2022 End: 10-09-2022 25-hydroxyvitamin D3 [Mass/volume] in Serum or Plasma VITAMIN D 25 HYDROXY Lab Routine Stage 3b chronic kidney disease (HCC) Expected: 08/09/2022, Expires: 10/09/2022 [facility] Work Phone: Comment on above: Expected: 08/09/2022 , Expires: 10/09/2022 Start: 08-09-2022 End: 10-09-2022 MONOCLONAL PROTEIN, SERUM (BLOOD) MONOCLONAL PROTEIN, SERUM (BLOOD) Lab Routine Stage 3b chronic kidney disease (HCC) Expected: 08/09/2022, Expires: 10/09/2022 [facility] Work Phone: Comment on above: Expected: 08/09/2022 , Expires: 10/09/2022 Start: 08-09-2022 End: 10-09-2022 Renal function 2000 panel - Serum or Plasma RENAL FUNCTION PANEL Lab Routine Stage 3b chronic kidney disease (HCC) Expected: 08/09/2022, Expires: 10/09/2022 [facility] Work Phone: Comment on above: Expected: 08/09/2022 , Expires: 10/09/2022 Start: 03-13-2022 [facility] Start: 03-12-2022 FUV, Provider: Marquez Beal, Status: Molina, Time: 8:30 AM FUV, Provider: Marquez Beal, Status: Molina, Time: 8:30 AM [facility] 250 DO Work Phone: Start: 02-18-2022 DEPRESSION ASSESSMENT DEPRESSION ASS ESSMENT [facility] Start: 12-21-2021 FUV, Provider: Marquez Beal, Status: Pen, Time: 12:50 PM FUV, Provider: Marquez Beal, Status: Pen, Time: 12:50 PM [facility] 600 DO Work Phone: Start: 12-08-2021 Mammography MAMMOGRAM [facility] Start: 11-22-2021 STRESS NUC, Provider : TRENA HHVI NUCLEAR 01,[id number], Status: Pen, Time: 12:00 PM STRESS NUC, Provider: TRENA HHVI NUCLEAR 01,[id number], Status: Pen, Time: 12:00 PM [facility] 600 DO Work Phone: Start: 11-22-2021 NURSEVST, Provider: KAYLEN ANAND ICT PROJECT MANAGER 1,[id number], Status: Pen, Time: 10:30 AM NURSEVST, Provider: KAYLEN ANAND ICT PROJECT MANAGER 1,[id number], Status: Pen, Time: 10:30 AM [facility] 600 DO Work Phone: Start: 11-09-2021 FUV, Provider: Marquez Beal, Status: Pen, Time: 1:10 PM FUV, Provider: Marquez Beal, Status: Pen, Time: 1:10 PM [facility] Work Phone: Start: 10-17-2021 STRESS IVAN, Provider : TRENA HHVI NUCLEAR 01,[id number], Status: Pen, Time: 2:00 PM STRESS IVAN, Provider: TRENA HHVI NUCLEAR 01,[id number], Status: Pen, Time: 2:00 PM [facility] 250 DO Work Phone: Start: 08-17-2021 [facility] Work Phone: Start: 08-14-2021 Referral to neurologist [facility] Work Phone: Start: 08-14-2021 Blood culture for bacteria, including anaerobic screen Blood Culture [facility] Start: 08-14-2021 [facility] Work Phone: Start: 08-13-2021 Ultrasonography of R ight and Left Heart, Transesophageal Ultrasonography of Right and Left Heart, Transesophageal [facility] Start: 08-13-2021 Hospital admission [facility] Work Phone: Start: 08-13-2021 Referral to capacity planning manager [facility] Work Phone: Start: 03-27-2021 Colonoscopy COLONOSCOPY [facility] Start: 03-27-2021 COLORECTAL CANCER SCREENING COLORECTAL CANCER SCREENING [facility] Start: 03-11-2021 COVID-19 VACCINE (4 - Booster for Pfizer series) COVID-19 VACCINE (4 - Booster for Pfizer series) [facility] Start: 03-11-2021 COVID-19 VACCINE (4 - Pfizer series) COVID-19 VACCINE (4 - Pfizer series) [facility] Start: 02-07-2021 HPV TESTING HPV TESTING [facility] Start: 02-07-2021 PAP TESTING PAP TESTING [facility] Start: 10-19-2020 Influenza vaccination Flu vaccine (# 1) [employer] Phone: Start: 03-14-2017 HEMOGLOBIN/HEMATOCRIT HEMOGLOBIN/HEM ATOCRIT [facility] Start: 2012 Screening for malign ant neoplasm of breast Breast cancer screen [employer] Phone: Start: 2012 Shingles Vaccine (1 of 2) Herring gles Vaccine (1 of 2) [employer] Phone: Start: 2012 SHINGRIX VACCINE (1 of 2) HERRING GRIX VACCINE (1 of 2) [facility] Start: 05-12-2007 COLOGUARD (FIT-DNA) COLOGUARD (FIT-D NA) [facility] Start: 05-12-[address] COLONOGRAPHY [facility] Start: 05-12-2007 DIABETES SCREEN DIABETES SCREEN [facility] Start: 05-12-2007 FECAL OCCULT BLOOD FECAL OCCULT BLOO D [facility] Start: 05-12-2007 LIPID SCREEN LIPID SCREEN [facility] Start: 05-12-2007 Screening for malign ant neoplasm of colon Colon cancer screen colonoscopy [facility] Work Phone: Start: 05-12-2007 SIGMOIDOSCOPY SIGMOIDOSCOPY [facility] Start: 2002 Lipid panel Lipid screen [facility] Work Phone: Start: 1992 Screening for malign ant neoplasm of cervix [facility] Work Phone: Start: 05-12-1983 Screening for malign ant neoplasm of cervix Pap smear [facility] Work Phone: Start: 1981 DTaP/Tdap/Td vaccine (1 - Tdap) DTaP/Tdap/Td vaccine (1 - Tdap) [facility] [employer] Phone: Start: 1981 Urine microalbumin profile DTAP,TDAP,TD (1 - Tdap) [facility] Start: 1980 ANNUAL PCP TEAM CLINICAL ACCOUNT MANAGER ZEFERINO DISEASE VISIT ANNUAL PCP TEAM CHRONIC DISEASE VISIT [facility] Start: 1980 HEPATITIS C SCREENING HEPATITIS C [facility] Start: 1980 HIV SCREENING HIV SCREENING [facility] Start: 1977 HIV screening HIV screen [facility] Work Phone: Start: 1962 Hepatitis C screening Hepatitis C [facility] Work Phone: Activated protein C resistance assay [facility] Work Phone: Antithrombin [Units/volume] in Platelet poor plasma by Chromogenic method [facility] Work Phone: aPTT.lupus sensitive (LA screen) [facility] Work Phone: aPTT.lupus sensitive W excess phospholipid actual/Normal (normalized LA confirm) [facility] Work Phone: aPTT.lupus sensitive/aPTT.lupus sensitive W excess phospholipid (screen to confirm ra [facility] Work Phone: Beta 2 glycoprotein 1 IgG Ab [Units/volume] in Serum [facility] Work Phone: Beta 2 glycoprotein 1 IgM Ab [Units/volume] in Serum [facility] Work Phone: Cardiolipin IgG Ab [Units/volume] in Serum by Immunoassay [facility] Work Phone: Cardiolipin IgM Ab [Units/volume] in Serum by Immunoassay [facility] Work Phone: dRVVT (LA screen) [facility] Work Phone: F2 gene mutations fo und [Identifier] in Blood or Tissue by Molecular genetics method [employer] [facility] Work Phone: Homocysteine [Moles/volume] in Serum or Plasma [facility] Work Phone: Lupus anticoagulant [Interpretation] in Platelet poor plasma [facility] Work Phone: End: 12-08-2020 BERTA KYARA DIGITAL SCREEN SELF REFERRAL W OR WO CAD BILATERAL BERTA KYARA DIGITAL SCREEN SELF REFERRAL W OR WO CAD BILATERAL Imaging Routine Encounter for screening mammogram for malignant neoplasm of breast 1 Occurrences starting 12/08/2020 until 12/08/2020 [employer] Work Phone: Comment on above: 1 Occurrences starti ng 12/08/2020 until 12/08/2020 BERTA KYARA DIGITAL SCR EEN SELF REFERRAL W OR WO CAD BILATERAL BERTA KYARA DIGITAL SCREEN SELF REFERRAL W OR WO CAD BILATERAL Imaging Routine Encounter for screening mammogram for malignant neoplasm of breast 12/08/2020 1:30 PM EDT [employer] Work Phone: Patient Education [facility] Work Phone: Patient referral [facility] Work Phone: Plasminogen assay [facility] Work Phone: Protein C actual/nor mal in Platelet poor plasma by Chromogenic method [facility] Work Phone: Protein S Free Ag [Units/volume] in Platelet poor plasma by Immunoassay [facility] Work Phone: Renin [Enzymatic activity/volume] in Plasma [facility] Work Phone: End: 09-08-2023 US KIDNEY/BLADDER US KIDNEY/BLADDER Radiology Routine Stage 3b chronic kidney disease (HCC) 1 Occurrences starting 08/09/2022 until 09/08/2023 [facility] Work Phone: Comment on above: 1 Occurrences starti ng 08/09/2022 until 09/08/2023 [facility] Immunizations Immunization Date Immunization Notes Care Provider Fa cility 01-14-2021 Pfizer-BioNTech COVI D-19 Vacc 30 MCG/0.3ML Intramuscular Suspension Shaikh Donna Work Phone: [facility] Comment on above: Result Comment: 2022: [id number] 06-25-2020 Pfizer-BioNTech COVI D-19 Vacc 30 MCG/0.3ML Intramuscular Suspension Shaikh Donna Work Phone: [facility] Comment on above: Reason for Medicatio n: Prophylaxis 06-04-2020 Pfizer-BioNTech COVI D-19 Vacc 30 MCG/0.3ML Intramuscular Suspension Shaikh Donna Work Phone: [facility] Comment on above: Reason for Medicatio n: Prophylaxis Payers Date Payer Category Payer Self-pay [id number] 2022 Medicaid [id number] 2020 Private Health Insurance [id number] 1960 Unknown [id number] 2.16.8 40.1.258153.3.579.2.8 1962 Unknown [id number] 2.16.8 40.1.500532.3.579.2.8 1962 Unknown [id number] 2.16. 840.1.108850.3.579.2.356 1962 Unknown [id number] 2.16. 840.1.533331.3.579.2.356 1962 Unknown [id number] 2.16. 840.1.767690.3.579.2.356 1962 Unknown [id number] 2.16. 840.1.109235.3.579.2.356 1962 Unknown [id number] 2.16. 840.1.264641.3.579.2.356 1962 Unknown [id number] 2.16. 840.1.592708.3.579.2.356 1962 Unknown [id number] 2.16. 840.1.311397.3.579.2.356 1962 Unknown [id number] 2.16. 840.1.271866.3.579.2.356 1962 Unknown [id number] 2.16. 840.1.669325.3.579.2.356 1962 Unknown [id number] 2.16. 840.1.347632.3.579.2.356 1962 Unknown [id number] 2.16. 840.1.193347.3.579.2.356 1962 Unknown [id number] 2.16.84 0.1.877125.3.579.2.593 1962 Unknown [id number] 2.16.84 0.1.250307.3.579.2.593 1962 Unknown [id number] 2.16.84 0.1.329640.3.579.2.593 1962 Unknown [id number] 2.16.84 0.1.179484.3.579.2.593 1962 Unknown [id number] 2.16.84 0.1.045969.3.579.2.593 1962 Unknown [id number] 2.16.84 0.1.019785.3.579.2.593 1962 Unknown [id number] 2.16.84 0.1.707989.3.579.2.593 1962 Unknown [id number] 2.16.84 0.1.616594.3.579.2.593 1962 Unknown [id number] 2.16.8 40.1.895408.3.579.2.727 1962 Unknown [id number] 2.16.8 40.1.582006.3.579.2.727 1962 Unknown [id number] 2.16.8 40.1.240962.3.579.2.72 1962 Unknown [id number] 2.16.8 40.1.379248.3.579.2.727 1962 Unknown [id number] 2.16.8 40.1.275197.3.579.2.72 1962 Unknown [id number] 2.16.8 40.1.014775.3.579.2.727 1962 Unknown [id number] 2.16.8 40.1.372994.3.579.2.72 1962 Unknown [id number] 2.16.8 40.1.004547.3.579.2.727 1962 Unknown [id number] 2.16.8 40.1.843496.3.579.2.72 1962 Unknown [id number] 2.16.8 40.1.129100.3.579.2.727 1962 Unknown [id number] 2.16.8 40.1.025262.3.579.2.72 1962 Unknown [id number] 2.16.8 40.1.353318.3.579.2.727 1962 Unknown [id number] 2.16.8 40.1.109452.3.579.2.727 1962 Unknown [id number] 2.16.8 40.1.650564.3.579.2.727 1962 Unknown [id number] 2.16.8 40.1.138272.3.579.2.727 1962 Unknown [id number] 2.16.8 40.1.403298.3.579.2.1244 1962 Unknown [id number] 2.16.84 0.1.408485.3.579.2.1259 1962 Unknown [id number] 2.16.840 .1.457710.3.579.2.1259 1959 Medicaid [id number] Unknown O [id number] Unknown Unknown [id number] 2.16.8 40.1.773562.3.579.2.531 Unknown [id number] 2.16.8 40.1.922452.3.579.2.531 Social History Date Type Detail Facility Start: 12-08-2020 Tobacco smoking stat [facility] Unknown if ever smoked [employer] Work Phone: Start: 1960 Sex Assigned At Not on file [employer] Work Phone: Start: 08-16-2021 End: 08-09-2022 Tobacco smoking status IAIS Ex-smoker (finding) [facility] Start: 08-09-2022 End: 10-09-2022 History of tobacco use [facility] Start: 1960 Sex Assigned At Female F [facility] Start: 08-09-2022 End: 10-09-2022 Daily caffeine consumption Daily caffeine consumption [facility] 250 DO Work Phone: Comment on above: 1 CUP OF COFFEE; 2 CIGS DAILY; quit 2021; Start: 04-11-2022 End: 10-15-2022 Tobacco smoking status Heavy tobacco smoker (finding) [facility] Tobacco smoking status Never [facility] Start: 02-12-2023 End: 08-18-2017 History of tobacco use Current smoker [facility] End: 08-18-2017 History of tobacco use Cigarette Smoker [facility] Start: 08-09-2022 Tobacco use and exposure Smokeless tobacco non-user [facility] Start: 08-09-2022 Alcohol intake Current drinke r of alcohol (finding) [facility] Start: 10-09-2022 Alcohol intake Ex-drinker (finding) [facility] Start: 02-10-2023 Tobacco smoking status Light t obacco smoker (finding) [facility] Goals Date Patient Goal Desired Activity /State Functional Status Date Assessment Result Facility 02-14-2023 Functional status Patient at Baseline [facility] Work Phone: 02-10-2023 Functional Status N/A [facility] 10-15-2022 Functional Status N/A [facility] 06-14-2022 Functional Status N/A [facility] 06-06-2022 Functional Status N/A [facility] 05-23-2022 Functional Status N/A [facility] 04-11-2022 Functional Status N/A [facility] 08-17-2021 Functional status Patient at Baseline [facility] Work Phone: Mental Status Date Assessment Result Facility 02-14-2023 Cognitive function Cognitive Sta tus Patient at Baseline [facility] Work Phone: 08-17-2021 Cognitive function Cognitive Sta tus Patient at Baseline [facility] Work Phone: Clinical Notes 01-18-2010 to 02-14-2023 Note Date & Type Note Facility 02-14-2023 Discharge summary Note Date/Time February 14, 2023 12:53pm [facility] [address] [place] [address] Discharge Summary Signed Patient: Deysi Hernandez MR#: [id number] : 1960 Acct:[id number] Age/Sex: 62 / F Adm Date: 3 Loc: Room: [address] [place] [address]: Jacques East MD Copies to: [...] female with PMHx of CKD presented to [facility] with shortness of breath and was transferred to [facility] due to elevated troponins. Patient states she [...] % (Auto) 87.6, Lymph % (Auto) 7.6, Bond % (Auto) 4.7, Eos % (Auto) 0.0, Baso % (Auto) 0.1, Nucleat RBC Rel Count 0.0, Neut # (Auto) 11.1 H, Lymph #(Auto) 1.0, Bond # (Auto) 0.6, Eos # (Auto) 0.0, [...] <Electronically signed by Jacques East MD> 02/14/23 1253 [facility] Work Phone: 1(700) 264-860112-28-2023 Progress note Author Jacques East [facility] February 14, 2023 12:45pm Note Date/Time February 14, 2023 7:29am [facility] [address] [place] [address] Hospitalist Progress Note Signed Patient: Deysi Hernandez MR#: [id number] : 1960 Acct:[id number] Age/Sex: 62 / F Adm Date: 3 Loc: Room: [address] [place] [address] Type: ADM IN Attending Dr: Jacques East [...] ESTEBAN Administration Melatonin 5 mg 02/12/23 08:10 12/27/23 21:47 Melatonin 5 Mg Tablet PO 02/12/24 [...] creatinine clearance -Trending downward from 80s at [place] to 70s here. repeat trop 43, flat [...] Documented By: Geneva Rivas DO, RES 02/14/23 0725 Signed By: <Electronically signed by DO MARIANELA Rivas> 02/14/23 1132 <Electronically signed by Jacques East MD> 02/14/23 1243 [facility] Work Phone: 1(441) 288-826412-27-2023 Progress note Author Jacques East [facility] February 13, 2023 10:47am Note Date/Time February 13, 2023 10:40am [facility] [address] [place] [address] Hospitalist Progress Note Signed Patient: Deysi Hernandez MR#: [id number] : 1960 Acct:[id number] Age/Sex: 62 / F Adm Date: 3 Loc: Room: [address] [place] [address] Type: ADM IN Attending Dr: Jacques East [...] creatinine clearance -Trending downward from 80s at [place] to 70s here. repeat trop 43, flat [...] <Electronically signed by Jacques East MD> 02/13/23 [facility] Work Phone: 1(133) 776-627112-26-2023 History and physical note Author Jacques East [facility] February 12, 2023 11:26am Note Date/Time February 12, 2023 9:53am [facility] [address] [place] [address] Hospitalist H&P Signed Patient: Deysi Hernandez MR#: [id number] : 1960 Acct:[id number] Age/Sex: 62 / F Adm Date: 3 Loc: Room: [address] [place] [address] Type: ADM INOo Attending Dr: Jacques East MD Copies to: Geneva Rivas DO, RES MD Shaikh Donna Piña MD~ HPI DATE OF EXAMINATION: 02/12/23 CHIEF COMPLAINT: Shortness of breath HISTORY OF PRESENT ILLNESS: Patient is a 62 year old female with PMHx of CKD [facility] [facility] and was transferred to [facility] due to elevated troponins. Patient states she [...] troponin 70.6 (down from 87 yesterday at [place]). Review of Systems Review of Systems All other systems reviewed & are negative unless noted below or in HPI Review of systems: 10 systems are reviewed and are negative except as mentioned elsewhere in the documentation [facility] Medical History CKD (chronic kidney disease) stage 3, GFR 30-59 ml/min Embolic cerebrovascular disease High cholesterol Problem List clean-up per request of Phys. EHR [facility] Hypertension Problem List clean-up per request of Phys. EHR [facility] Family History Father Myocardial infarction Heart disease [...] % (Auto) 4.0 % (.) 02/12/23 06:41 Bond % (Auto) 1.8 % (.) 02/12/23 06:41 Eos % (Auto) 0.0 % (.) 02/12/23 06:41 Baso % (Auto) 0.2 % (.) 02/12/23 06:41 Nucleat RBC Rel Count 0.1 /100 WBC (0-0.5) 02/12/23 06:41 Neut # (Auto) 14.1 x10E3/uL (1.8-7.7) H 02/12/23 06:41 Lymph # (Auto) 0.6 x10E3/uL (1.00-4.8) L 02/12/23 06:41 Bond # (Auto) 0.3 x10E3/uL (0.0-0.8) 02/12/23 06:41 [...] Documented By: Geneva Rivas DO, RES 02/12/23 0931 Signed By: <Electronically signed by DO MARIANELA Rivas> 02/12/23 1044 <Electronically signed by Jacques East MD> 02/12/23 1126 [facility] Work Phone: 1(783) 596-868012-24-2023 Hospital Discharge instructions Patient Education 02/10/2023 17:12:09 Urinary Tract Infection, Adult, Rqqe-ye-Wkmq Urinary Tract Infection, Adult A urinary tract [...] Follow these instructions at home: Medicines Take weqd-owg-jzrjxsg and prescription medicines only as told by [...] provider. Document Revised: 09/16/2020 Document Reviewed: 09/16/2020 [employer] Patient Education 2022 mii. 02/10/2023 17:12:09 Acute Bronchitis, Adult Acute Bronchitis, [...] condition. 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 Avoid contact with people who have cold [...] it is easier to cough up. Take pqbe-nlb-ytrfafx and prescription medicines only as told by [...] provider. Document Revised: 05/17/2022 Document Reviewed: 06/07/2021 [employer] Patient Education 2022 [employer] Follow Up Care 02/10/2023 14:38:40 With:SHAIKH DONNA Address: [address] [place], [place] [address] [address] [phone] Business (1) When:02/13/2023 16:16:37 Comments:Follow-up with your primary care provider in 3 to 5 days. If symptoms worsen, do not improve, or new symptoms arise please report back to emergency department for further evaluation. [facility]12-24-2023 Evaluation + Plan note Diagnostic Tests Pending * Urine Culture 02/10/23 [facility]12-24-2023 Evaluation + Plan noteExtracted from: [...] day(s), # 14 cap(s), Refills(s) 0, Pharmacy: [facility]/pharmacy #[id number], 163, cm, 02/10/23 14:52:00 EST, Height/Length Dosing, 70, kg, 02/10/23 14:52:00 EST, Weight Dosing predniSONE, 60 mg = 3 tab(s), Oral, Daily, X 5 day(s), # 15 tab(s), Refills(s) 0, Pharmacy: [facility]/pharmacy #[id number], 163, cm, 02/10/23 14:52:00 EST, [...] Ag PT & PTT Rapid COVID Antigen [place] Saline Lock Insert Troponin 0 Hr. Troponin 3 Hr. XR Chest Single View [facility]09-12-2023 Evaluation note* Diagnosis Stage 3 chronic kidney disease, unspecified whether stage 3a or 3b CKD (HCC) documented in this encounter [facility]09-11-2023 NoteHNO ID: [id number] Author: Debra Fishman MD Service: ? Author Type: Physician Type: Progress Notes Filed: 10/29/2022 9:00 PM Note Text: Patient contacted me regarding high blood pressure in 150-160 mmHg at home. We agreed to increase lisinopril back to 10 mg daily, updated prescription sent to pharmacy on file. Debra Fishman MD Staff, Department of Kidney Medicine 10/29/22 9:00 [facility]09-11-2023 History of Present illness Narrative * Debra Fishman MD - 10/29/2022 8:59 PM EDT Patient contacted me regarding high blood pressure in 150-160 mmHg at home. We agreed to increase lisinopril back to 10 mg daily, updated prescription sent to pharmacy on file. Debra Fishman MD Staff, Department of Kidney Medicine 10/29/22 9:00 PM [facility] Miscellaneous Notes* Telephone Encounter - Debra [...] question. I will also send her a GigSocial message encouraging communicate via GigSocial if needed. Debra Fishman MD Staff, Department of Kidney Medicine 10/26/22 5:49 PM documented in [facility]23 Miscellaneous Notes* Telephone Encounter - Linn Solis Ma - 10/25/2022 12:32 PM EDT Patient called the office very upset because today at here appointment with Kidney Medicine she wasseen by another provider and it wasn't her kidney doctor. She would like Dr. Fishman call her back at [phone] because she has lots of questions that the patient wants answers to and the patient is requesting that the provider calls her back after 5:30 pm due to the patient works that late Saturday thru Saturday documented in this encounterMer[facility]23 Hospital Discharge instructions Patient Education 10/15/2022 [...] to children increases the risk of: Sudden syndrome (SIDS). Infections in the nose, throat, [...] Department of Health and Human Services: www.smokefree.gov [place] [employer]: www.freedomfromsmoking.org [place] Heart Association: www.heart.org Where to find more [...] provider. Document Revised: 02/06/2022 Document Reviewed: 02/06/2022 [employer] Patient Education 2022 mii. 10/15/2022 18:04:53 Steps to Quit Smoking Steps [...] require a prescription. You can also purchase ozdm-wtg-bpanzhc medicines. Medicines may have nicotine in them [...] and encouragement. Call telephone quitlines, such as 4-433-NMUX-NOW, reach out to support groups, or work [...] provider. Document Revised: 01/26/2022 Document Reviewed: 01/26/2022 [employer] Patient Education 2022 mii. 10/15/2022 18:04:51 BMI for Adults BMI for [...] numbers. This can be done either in Dutch (U.S[place] or metric measurements. Note that charts and online BMI calculators are available to help you find your BMI quickly and easily without having to do these calculations yourself. To calculate your BMI in Dutch (U.S.) measurements: 1.Measure your weight in pounds [...] Centers for Disease Control and Prevention: www.cdc.gov [place] Heart Association: www.heart.org National Heart, Lung, and Blood [place]: www.nhlbi.nih.gov Summary Body mass index (BMI) is a number that is calculated from a person's weight and height. BMI may help estimate how much of a person's weight is composed of fat. BMI can help identify thosewho may be at higher risk for certain medical problems. BMI can be measured using Dutch measurements or metric measurements. BMI charts are used to identify whether you are underweight, normal weight, overweight, or obese. This information is not intended to replace advice given to you by your health care provider. Make sure you discuss any questions you have with your health care provider. Document Revised: 10/28/2019 Document Reviewed: 09/04/2019 [employer] Patient Education 2022 mii. 10/15/2022 18:04:48 Urinary Tract Infection, Adult Urinary [...] Treatment for this condition includes: Antibiotic medicine. Tsoa-img-quakdsg medicines to treat discomfort. Drinking enough water [...] Follow these instructions at home: Medicines Take szaz-mhv-ltixwpz and prescription medicines only as told by [...] provider. Document Revised: 09/16/2020 Document Reviewed: 09/16/2020 [employer] Patient Education 2022 mii. Follow Up Care 10/15/2022 17:17:22 With:SHAIKH THOMPSON Address:Unknown When: Unknown [facility] 08-28-2023 Evaluation + Plan note Diagnostic Tests Pending * Urine Culture 10/15/22 [facility]08-23-2023 Evaluation note* Diagnosis Stage 3 chronic kidney disease, unspecified whether stage 3a or 3b CKD (HCC)- Primary Tobacco abuse Tobacco use disorder Hypertension, renal disease Unspecified hypertensive kidney disease with chronic kidney disease stage I through stage IV, or unspecified Mixed hyperlipidemia Atrophic kidney, acquired Renal sclerosis, unspecified documented in this encounter [facility]08-22-2023 NoteHNO ID: [id number] Author: Rosie Harris DO Service: ? Author Type: Physician Type: Progress Notes Filed: 10/09/2022 5:08 PM Note Text: [facility] SERVICE DATE: 10/09/2022 [...] CKD, ESRD, hearing loss. She is a alf smoker, currently 0.75 pack per day but [...] note: I have interview (more content not included)...[facility] 10-09-2022 Instructions* Patient Instructions* Gurmeet Ojeda MD [...] to smoking cessation program documented in [facility]23 History of Present illness Narrative* Katelin HarrishanDO - 10/09/2022 2:32 PM EDT [facility] SERVICE DATE: 10/09/2022 [...] CKD, ESRD, hearing loss. She is a alf smoker, currently 0.75 pack per day butsmoked [...] plan. Rosie Harris DO documented in this encounterMer[facility]08-[facility]-2023 NotePatient Outreach (ELPIDIO) HILARIODEYSI ([id number]) 1960 F Date Time Provider Department 10/09/22 ROSIE HARRIS During your visit today, we recorded the following information about you: Allergies As of Date: 10/09/2022 Noted Allergy Reaction CODEINE 09/07/2014 7 - Swelling Date Reviewed: 10/09/2022 Reviewed by: Rosie Harris DO - Fully Assessed Visit Diagnosis:Screening for genitourinary condition [Z13.89] Order(s):URINALYSIS, REFLEX MICROSCOPIC [RXC4005] Order #: [id number]. #:[id number] Prescriptions as of 10/12/2022 - lisinopril (ZESTRIL) [...] Mixed hyperlipidemia [E78.2] 10/09/2022 Encounter Status:Closed by cloudControl on 10/12/22[facility] 08-23-2022 NoteHNO ID: [id number] Author: Carine Farris RDMS Service: ? Author [...] Carine Farris RDMS August 23, 2022 2:23 [id number] NoteHNO ID: [id number] Author: Debra Fishman MD Service: ? Author Type: Physician Type: Progress Notes Filed: 08/09/2022 7:02 PM Note Text: [facility]YP[facility] SERVICE DATE: 08/09/2022 [...] CKD, ESRD, hearing loss. She is a alf smoker, currently 0.75 pack per day but [...] LEUKEST 75 Bonnie/uL* ASSE (more content not included)...[facility]06-22-2023 Instructions* Patient Instructions* Gurmeet Ojeda MD [...] at your earliest convenience documented in this encounterMer[facility] History of Present illness Narrative* Debra Fishman MD - 08/09/2022 3:17 PM EDT [facility] SERVICE DATE: 08/09/2022 [...] being managed by her PCP. On lisinopril-HCTZ 12.06/27,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 the information to criminally investigate or prosecute any alcohol or drug abuse patient.[facility] the event this information is protected by the Federal Confidentiality of Alcohol and Drug Abuse Patient Records regulations: The Federal rules restrict any use of the information to criminally investigate or prosecute any alcohol or drug abuse patient.[facility] the event this information is protected by the Federal Confidentiality of Alcohol and Drug Abuse Patient Records regulations: The Federal rules restrict any use of the information to criminally investigate or prosecute any alcohol or drug abuse patient.[facility] Hospital[facility] the event this information is protected by the Federal Confidentiality of Alcohol and Drug Abuse Patient Records regulations: The Federal rules restrict any use of the information to criminally investigate or prosecute any alcohol or drug abuse patient.[facility] FOR RECORDS PERTAINING TO PATIENTS WHO [...] BE BASED ON THE PRIMARY CLINICAL RECORDS. [facility], [facility]. provides no warranty or guarantee of the accuracy or completeness of information in this document.
== END 2023-05-23 07:34 | disposition home or self-care (01) ==
LOC: US 07:33
PROVIDERS: PCP Internal Medicine; Visit Provider Internal Medicine
DX: N28.1 Cyst of kidney, acquired (principal); N20.0 Calculus of kidney
CPT/HCPCS: 76775

== ENCOUNTER 2023-07-01 09:33 | Outpatient (RCR) | payer OTHER, SELFPAY | END 2023-09-03 15:21 | disposition home or self-care (01) | LOC: PT 09:33 | PROVIDERS: PCP Internal Medicine; Visit Provider Internal Medicine | DX: M54.50 Low back pain, unspecified (principal) | CPT/HCPCS: 97010; 97014; 97035; 97110; 97140; 97161 ==

== ENCOUNTER 2023-07-13 10:45 | Outpatient (OUT) | payer OTHER, SELFPAY ==
--- OUTSIDE RECORDS SUMMARY | 2023-07-13 10:48 | XMS_ITS | CCD ---
Author Organization [facility] Inform ion Partnership [facility] Care Team Providers Care Health Occupations Instructor Name Role Phone Unavailable Primary Care Provider Unavailabl e ALEXANDR AMIN S Referring Unavailable NO FAMILY, PHYSICIAN Primary Care Provider Unava ilMD Alaina Fernandez Admit Provider MD Marquez Beal Referring Provider DO Rober Wyatt Other Provider DO Ricky Reynoso Attending Provider [phone] STAN Hamm Janet Attending Provider [phone] DARVIN Byrne Attending Provider Linn Byrne Unavailable [...] ailable MD Nick Thompson Primary Care Provider [phone] MD Kevyn Sharma Attending Provider [phone] CHARLEE THOMPSONIKH Primary Care Physician [phone] Padmini Sam Unavailable Kevyn Sharma Unavailable FAWWAD, DUNBAR H Admitting Unavailable FAWWAD, DUNBAR H Attending Unavailable FAWWAD, DUNBAR H Primary Care Unavailable FAWWAD, DUNBAR H Consulting Unavailable FAWWAD, DUNABR H Admitting Unavailable FAWWAD, DUNBAR H Attending Unavailable FAWWAD, DUNBAR H Primary Care Unavailable DR CHRISTIANO WADE Consulting Unavailable FAWWAD, DUNBAR H Consulting Unavailable KARASIK ., DR PARK Admitting Unavailabl e KARASIK ., DR PARK Attending Unavailabl e FAWWAD, DUNBAR H Primary Care Unavailable KARASIK ., DR PARK Consulting Unavailabl e FAWWAD, DUNBAR H Admitting Unavailable FAWWAD, DUNBAR H Attending Unavailable DONNA, DUNBAR H Primary Care Unavailable EMIGDIO, DR SINGH Admitting Unavailable ANTONIOUINN, DR SINGH Attending Unavailable DONNA, DUNBAR H Primary Care Unavailable GROVES ., DR JENNINGS Consulting Unavailable EMIGDIO, DR SINGH Consulting Unavailable DONNA, DUNBAR H Primary Care Unavailable PAY ., DR ESCBOEDO Admitting Unavailable PAY ., DR ESCOBEDO Attending [...] Admitting Unavailable FAWWAD, DUNBAR H Attending Unavailable [facility] Primary Care Unavailable [facility], [facility] H Consulting Unavailable Donna FINNEY [facility] Primary Care Provider [phone] SHARAKOVA, DEBRA Referring Unavailable [facility], [facility] Primary Care Unavailable [facility] Referring [facility]available [facility], [facility] Primary Care Unavailable Unavailable Unavailable GURMEET OJEDA Attending Unavailable [facility], [facility] Primary Care Unavailable GURMEET OJEDA Attending Unavailable [facility], [facility] Referring Unavailable SARAH, [facility] Primary Care Unavailable MD Donna [facility] Primary Care Provider MD Jacques East Admit Provider MD Jacques East Attending Provider [phone] MD Marquez Beal Attending Provider MARQUEZ BEAL Attending Unavailable [facility], [facility] Primary Care Unavailable Taranr Obaydah M Admitting Unavailable TaranrGlenroyaydaenrique M Attending Unavailable [facility] Primary Care Unavailable Marquez Beal Admitting Unavail able Marquez Beal Attending Unavail able [facility], [facility] Primary Care Unavailable Damion Cheek Admitting Unavailable Damion Cheek Attending Unavailable [facility], [facility] Primary Care Unavailable Gabby De Oliveira Attending Unavailable Jaxson Johnson Attending Unavailable [facility], [facility] Primary Care Unavailable Damion Cheek Attending Unavailable [facility], [facility] Primary Care Unavailable [facility], [facility] Referring Unavailable Jamie BILLS Attending Unavailable [facility], [facility] Primary Care Unavailable TRUDY ADRIAN Attending Unavailable TRUDY ADRIAN Attending Unavailable [facility], [facility] Primary Care Unavailable NGUYỄNTRUDY GAINES Attending Unavailable [facility], [facility] Primary Care Unavailable TRUDY ADRIAN Attending [facility] Unavailable TRUDY ADRIAN Attending Unavailable SHAIKH THOMPSON Primary Care Unavailable CHARLEE THOMPSONIKH Primary Care Unavailable Bj TEJEDA Attending Unavailable TRUDY ADRIAN Attending Unavailable Jaxson Johnson Admitting Unavailable Jaxson Johnson Attending Unavailable SHAIKH THOMPSON Attending Unavailable SHAIKH THOMPSON Attending Unavailable ROSIE BLANCHARD Attending Unavailable ROSIE BLANCHARD Attending Unavailable SHAIKH THOMPSON Attending Unavailable Allergies Allergy Classification Reported Allergen(s) Allergy Type Date of Onset Reaction(s) Facility (20 sources) Codeine; Translations: [CODEINE] Drug Allergy 5 Swelling, Swelling (finding) [facility] (1 source) Codeine Drug Allergy 2 [facility] Repository Medications Current Medications Medication Drug Class(es) [...] day(s), # 14 cap(s), Refills(s) 0, Pharmacy: [facility]/pharmacy #[id number], 163, cm, 02/10/23 14:52:00 EST, Height/Length [...] day(s), # 21 cap(s), Refills(s) 0, Pharmacy: [facility]/pharmacy #[id number], 163, cm, 10/15/22 17:40:00 EDT, Height/Length [...] (20 sources) beta-Adrenergic Mitch Start: 08-17-2021 take 1 tablet by mouth once daily metoprolol 100 mg ER Tab 100 mg = 1 tab(s), Oral, Daily, # 30 tab(s), Refills(s) 0 Start Date: 04/11/22 Status: Ordered Comment on above: Take 100 mg by mouth . omeprazole 40 mg delayed release oral capsule (15 sources) Proton Pump Inhibitor Start: 06-14-2022 take 1 capsule by mouth once daily omeprazole 40 mg Cap-DR 40 mg = 1 cap(s), Oral, Daily, # 30 cap(s), Refills(s) 2, Pharmacy: [facility] [id number], 163, cm, 06/14/22 13:00:00 EDT, Height/Length Dosing, [...] day(s), # 15 tab(s), Refills(s) 0, Pharmacy: [facility]/pharmacy #[id number], 163, cm, 02/10/23 14:52:00 EST, Height/Length [...] Classification Problem Date Documented Da te Episodic/Chronic Chronic kidney disease (18 sources) Chronic kidney disease stage 3B ; [...] unspecified] Onset: 5 08-17-2021 Chronic Esophageal disorders (8 sources) Gastroesophageal reflux disease without esophagitis; Translations: [Gastro-esophageal reflux disease without esophagitis] Onset: 3 Chronic Essential hypertension (20 sources) Essential hypertension; Translations: [Essential (primary) hypertension] Onset: 2 Resolved: 3 08-17-2021 Chronic Genitourinary symptoms and ill-defined conditions (14 sources) Stress incontinence (female) (male); Translations: [Female stress incontinence] Onset: 3 Chronic Hypertension with complications and secondary hypertension (20 sources) Hypertensive urgency ; Translations: [Hypertensive urgency] Onset: 3 08-15-2021 Chronic Nephritis; nephrosis; renal sclerosis (9 sources) Atrophy of kidney; Translations: [Atrophy of [...] colonic polyps] 03-13-2022 Episodic Other circulatory disease (8 sources) Orthostatic hypotension; Translations: [Orthostatic hypotension] Episodic Other circulatory disease (1 source) Orthostatic hypotension; Translations: [Orthostatic hypotension] Onset: 3 Episodic Other circulatory disease (1 source) Disorder of respiratory system; Translations: [Other specified symptoms and signs involving the circulatory and respiratory systems] Onset: 3 Episodic Other gastrointestinal disorders (16 sources) Dysphagia; Translations: [Dysphagia, unspecified] Onset: 3 [...] to d ocumentation in Social History. Unclassified (8 sources) Patient encounter status 06-14-2022 Unclassified (2 sources) COUGH, UNSPECIFIED; Translations: [COUGH, UNSPECIFIED] Onset: 3 Unclassified (1 source) CONTACT W/AND (SUSP) EXPOS COVID-19; Translations: [CONTACT W/AND (SUSP) EXPOS COVID-19] Onset: 2 Unclassified (7 sources) History of endometrial ablation Onset: 6 10-15-2022 Urinary tract infections (13 sources) Pyelonephritis; Translations: [Tubulo-interstitial nephritis, not specified as acute or chronic] Onset: 2 08-13-2021 Episodic Past or Other Problems Problem Classification Problem Date Documented Da te Episodic/Chronic Abdominal pain (4 sources) Right upper quadrant pain; Translations: [RIGHT UPPER QUADRANT PAIN] Onset: 08-13-2021 Episodic Acute cerebrovascular disease (20 sources) Embolic stroke; Translations: [Cerebral infarction, unspecified] Onset: 08-13-2021 Resolved: 10-15-2022 08-16-2021 Chronic Conditions associated with dizziness or vertigo (1 source) Dizziness and giddiness; Translations: [DIZZINESS AND GIDDINESS] Onset: 08-16-2021 Episodic Fluid and electrolyte disorders (10 sources) Hypokalemia; Translations: [Alkalosis] Onset: 08-16-2021 Episodic Genitourinary symptoms and ill-defined conditions (10 sources) Increased frequency of urination; Translations: [Frequency of micturition] Onset: 08-16-2021 Episodic Immunizations and screening for infectious disease (1 source) Encounter for screening for human papillomavirus (HPV); Translations: [ENC SCREENING HUMAN PAPILLOMAVIRUS] Onset: 02-27-2022 Episodic Other hematologic conditions (6 sources) Other specified abnormalities of plasma proteins; Translations: [Other abnormal blood chemistry] Onset: 08-16-2021 Episodic Other hematologic conditions (14 sources) Erythrocytosis; Translations: [Secondary polycythemia] Onset: 03-14-2016 03-14-2016 Episodic Residual codes; unclassified (4 sources) Disorientation, unspecified; Translations: [Other alteration of consciousness] Onset: 08-16-2021 Episodic Residual codes; unclassified (1 source) Other specified personal risk factors, not elsewhere classified Onset: 08-23-2021 Resolved: 08-23-2021 Episodic Residual codes; unclassified (7 sources) History of endometrial ablation; Translations: [Other specified postprocedural states] Onset: 02-08-2016 02-08-2016 Episodic Residual codes; unclassified (13 sources) Tobacco user; Translations: [Tobacco use] Onset: 09-07-2014 10-09-2022 Episodic Screening and history of mental health and substance abuse codes (14 sources) Ex-smoker; Translations: [Personal history of tobacco use] Onset: 02-21-2022 10-15-2022 Episodic Comment on above: quit 2021; Outside Source Comme nt: Comment on above: quit 2021; Unclassified (11 sources) None (qualifier value) 11-16-2015 Unclassified (1 source) Cough R05.9 Unclassified (1 source) COUGH, UNSPECIFIED; Translations: [COUGH, UNSPECIFIED] Onset: 02-19-2022 Results Test Name Value Interpretation Reference Range Facility Aspartate Amino Transferaseo n 03-12-2023 AST [Catalytic activity/Vol] 20 U/L Normal [facility] Comment on above: Order Comment: PT FA STED 121 HOURS Performed By: #### A ST, LIPID, BMP #### [facility] [address] Aspartate aminotransferase [ Enzymatic activity/volume] in Serum or PlasmaOrdered By: Marquez Beal on 03-12-2023 AST [Catalytic activity/Vol] 20 U/L [facility] Basic Metabolic Panelon 02-19 Anion gap [Moles/Vol] 8.4 mmol/L Normal 6.0-15.0 [facility] Comment on above: Order Comment: PT FA STED 121 HOURS Performed By: #### A ST, LIPID, BMP #### [facility] [address] [place] [address] [place] Calcium [Mass/Vol] 9.8 mg/dL Normal 8.6-10.[address] [facility] Comment on above: Order Comment: PT FA STED 121 HOURS Performed By: #### A ST, LIPID, BMP #### [facility] [address] [place] [address] [place] Chloride [Moles/Vol] 108 mmol/L High 98-107 [facility] Comment on above: Order Comment: PT FA STED 121 HOURS Performed By: #### A ST, LIPID, BMP #### [facility] [address] [place] [address] [place] CO2 [Moles/Vol] 30.0 mmol/L Normal 21.0-31.0 [facility] Comment on above: Order Comment: PT FA STED 121 HOURS Performed By: #### A ST, LIPID, BMP #### [facility] [address] [place] [address] [place] Creatinine [Mass/Vol] 1.39 mg/dL High 0.60-1.20 [facility] Comment on above: Order Comment: PT FA STED 121 HOURS Performed By: #### A ST, LIPID, BMP #### [facility] [address] [place] [address] [place] GFR/1.73 sq M.predicted MDRD (S/P/Bld) [Vol rate/Area] 43.442 mL/min/{1.73_m2} Normal [facility] Comment on above: Order Comment: PT FA STED 121 HOURS Performed By: #### A ST, LIPID, BMP #### [facility] [address] [place] [address] [place] Glucose [Mass/Vol] 93 mg/dL Normal 70-[address] [facility] Comment on above: Order Comment: PT FA STED 121 HOURS Result Comment: [place] om Glucose Reference Range is dependent on time and content of last meal. Glucose of more than 200 mg/dL in a nonstressed, ambulatory subject supports the diagnosis of Diabetes Mellitus. ADA recommended reference range Performed By: #### A ST, LIPID, BMP #### [facility] [address] [place] [address] [place] Potassium [Moles/Vol] 5.4 mmol/L High 3.5-5.1 [facility] Comment on above: Order Comment: PT FA STED 121 HOURS Performed By: #### A ST, LIPID, BMP #### [facility] [address] [place] [id number] [place] Sodium [Moles/Vol] 141 mmol/L Normal 136-[address] [facility] Comment on above: Order Comment: PT FA STED 121 HOURS Performed By: #### A ST, LIPID, BMP #### [facility] [address] [place] [address] [place] Urea nitrogen [Mass/Vol] 18 mg/dL Normal 7-25 [facility] Comment on above: Order Comment: PT FA STED 121 HOURS Performed By: #### A ST, LIPID, BMP #### [facility] [address] [place] [address] [place] Calcium [Mass/volume] in Ser um or PlasmaOrdered By: Marquez Beal on 03-12-2023 Calcium [Mass/Vol] 9.8 mg/dL 8.6-10.[address] [facility] Carbon dioxide, total [Moles /volume] in Serum or PlasmaOrdered By: Marquez Beal on 03-12-2023 CO2 [Moles/Vol] 30.0 mmol/L 21.0-31.0 [facility] Chloride [Moles/volume] in S oralia or PlasmaOrdered By: Marquez Beal on 03-12-2023 Chloride [Moles/Vol] 108 mmol/L 98-107 [facility] Cholesterol [Mass/volume] in Serum or PlasmaOrdered By: Marquez Beal on 03-12-2023 Cholesterol [Mass/Vol] 171 mg/dL 140-200 [facility] Comment on above: Chol less than 200 m g/dl low riskChol 201-239 mg/dl borderline riskChol 240 mg/dl and greater high risk Cholesterol in LDL Calc [Mas s/Vol]Ordered By: Marquez Beal on 03-12-2023 Cholesterol in LDL [Mass/Vol] 93 mg/dL 0-100 [facility] Comment on above: LDL ATP III CLASSIFI CATIONLDL less than 100 mg/dL OptimalLDL 100-129 mg/dL Near or above optimalLDL 130-159 mg/dL Borderline highLDL 160-189 mg/dL HighLDL greater than 189 mg/dL Very high Cholesterol in VLDL Calc [Ma ss/Vol]Ordered By: Marquez Beal on 03-12-2023 Cholesterol in VLDL [Mass/Vol] 33 mg/dL [facility] Creatinine [Mass/volume] in Serum or PlasmaOrdered By: Marquez Beal on 03-12-2023 Creatinine [Mass/Vol] 1.39 mg/dL 0.60-1.20 [facility] Glucose [Mass/volume] in Ser um or PlasmaOrdered By: Marquez Beal on 03-12-2023 Glucose [Mass/Vol] 93 mg/dL 70-[address] [facility] Comment on above: ADA recommended refe rence rangeRandom Glucose Reference Range is dependent on time and content of last meal. Glucose of more than 200 mg/dL in a nonstressed, ambulatory subject supports the diagnosis of Diabetes Mellitus. Lipid Panelon 03-12-2023 Cholesterol [Mass/Vol] 171 mg/dL Normal 140-200 [facility] Comment on above: Order Comment: PT FA STED 121 HOURS Result Comment: Chol less than 200 mg/dl low risk Chol 201-239 mg/dl borderline risk Chol 240 mg/dl and greater high risk Performed By: #### A ST, LIPID, BMP #### [facility] [address] [place] [address] [place] Cholesterol in HDL [Mass/Vol] 45 mg/dL Normal 23-92 [facility] Comment on above: Order Comment: PT FA STED 121 HOURS Result Comment: HDL CHOL ATP-III CLASSIFICATION Cardiovascular Risk HDL > or equal to 60 mg/dL LOW HDL < 40 mg/dL HIGH Performed By: #### A ST, LIPID, BMP #### [facility] [address] [place] [id number] [facility] Cholesterol.total/Chol esterol in HDL [Mass ratio] 3.8 {ratio} Normal <5.0 [facility] Comment on above: Order Comment: PT FA STED 121 HOURS Result Comment: PERF ORMED BY: [facility] [address] [place] [address] PATHOLOGIST [employer] JERAMY CALDWELL M.D. Performed By: #### A ST, LIPID, BMP #### [address] LDL Cholesterol,Calculated 93 mg/dL Normal 0-100 [facility] Comment on above: Order Comment: PT FA STED 121 HOURS Result Comment: LDL ATP III CLASSIFICATION LDL less than 100 mg/dL Optimal LDL 100-129 mg/dL Near or above optimal LDL 130-159 mg/dL Borderline high LDL 160-189 mg/dL High LDL greater than 189 mg/dL Very high Performed By: #### A ST, LIPID, BMP #### [facility] [address] [place] [address] Triglyceride w/Reflex 165 mg/dL High 0-149 [facility] Comment on above: Order Comment: PT FA STED 121 HOURS Result Comment: TRIG ATP III CLASSIFICATION TRIG less than 150 mg/dL Normal TRIG 150-199 mg/dL Borderline high TRIG 200-500 mg/dL High TRIG greater than 500 mg/dL Very high Standard traceable to the Center for Disease Conrtrol and Prevention (CDC) test method. Performed By: #### A ST, LIPID, BMP #### [facility] [address] [place] [address] VLDL CHOLESTEROL 33 mg/dL Normal [facility] Comment on above: Order Comment: PT FA STED 121 HOURS Performed By: #### A ST, LIPID, BMP #### [facility] [address] [place] [address] No Panel InformationOrdered By: Marquez Beal on 03-12-2023 Estimated GFR (CKD-EPI) 43.442 mL/Min [facility] Creatinine Clearance (Chem N/A [facility] Potassium [Moles/volume] in Serum or PlasmaOrdered By: Marquez Beal on 03-12-2023 Potassium [Moles/Vol] 5.4 mmol/L 3.5-5.1 [facility] Serum or plasma anion gap de terminationOrdered By: Marquez Beal on 03-12-2023 Anion gap [Moles/Vol] 8.4 mmol/L 6.0-15.0 [facility] Serum or plasma high density lipoprotein (HDL) cholesterol measurementOrdered By: Marquez Beal on 03-12-2023 Cholesterol in HDL [Mass/Vol] 45 mg/dL [facility] Comment on above: HDL CHOL ATP-III CLA SSIFICATION Cardiovascular RiskHDL > or equal to 60 mg/dL LOWHDL < 40 mg/dL HIGH Serum or plasma total choles terol/high density lipoprotein (HDL) cholesterol mass ratOrdered By: Marquez Beal on 03-12-2023 Cholesterol.total/Chol esterol in HDL [Mass ratio] 3.8 {ratio} <5.0 [facility] Sodium [Moles/volume] in Ser um or PlasmaOrdered By: Marquez Beal on 03-12-2023 Sodium [Moles/Vol] 141 mmol/L 136-[address] [facility] Triglyceride [Mass/volume] i n Serum or PlasmaOrdered By: Marquez Beal on 03-12-2023 Triglyceride [Mass/Vol] 165 mg/dL 0-149 [facility] Comment on above: TRIG ATP III CLASSIF ICATIONTRIG less than 150 mg/dL NormalTRIG 150-199 mg/dL Borderline highTRIG 200-500 mg/dL High TRIG greater than 500 mg/dL Very highStandard traceable to the Center for Disease Conrtrol and Prevention (CDC) test method. Urea nitrogen [Mass/volume] in Serum or PlasmaOrdered By: Marquez Beal on 03-12-2023 Urea nitrogen [Mass/Vol] 18 mg/dL 09-11 [facility] Basic Metabolic Panelon 12-2 Anion gap [Moles/Vol] 12.2 mmol/L Normal 6.0-15.0 [facility] Comment on above: Performed By: #### C BC, BMP ####[facility] [id number] [place] [id number] [facility] Calcium [Mass/Vol] 9.4 mg/dL Normal 8.6-10.[address] [facility] Comment on above: Performed By: #### C BC, BMP ####[facility] [id number] [place] [address] [place] Chloride [Moles/Vol] 103 mmol/L Normal 98-107 [facility] Comment on above: Performed By: #### C BC, BMP ####[place] [address] [place] [address] [facility] CO2 [Moles/Vol] 26.2 mmol/L Normal 21.0-31.0 [facility] Comment on above: Performed By: #### C BC, BMP ####[place] [address] [place] [address] [place] Creatinine [Mass/Vol] 1.35 mg/dL High 0.60-1.20 [facility] Comment on above: Performed By: #### C BC, BMP ####[place] [address] [place] [id number] [place] Creatinine Clr Calc Pharmacy 40.59 [facility] Comment on above: Result Comment: PERF ORMED BY: [facility] [address] [place] [id number] PATHOLOGIST [employer] JERAMY CALDWELL M.D. Performed By: #### C BC, BMP ####[address] [address] [place] GFR/1.73 sq M.predicted MDRD (S/P/Bld) [Vol rate/Area] 44.991 mL/min/{1.73_m2} [facility] Comment on above: Performed By: #### C BC, BMP ####[place] [address] [place] [id number] [place] Glucose [Mass/Vol] 136 mg/dL High 70-[address] [facility] Comment on above: Result Comment: [place] Glucose Reference Range is dependent on time and content of last meal. Glucose of more than 200 mg/dL in a nonstressed, ambulatory subject supports the diagnosis of Diabetes Mellitus. ADA recommended reference range Performed By: #### C BC, BMP ####[facility] [place] [address] [place] Potassium [Moles/Vol] 5.4 mmol/L High 3.5-5.1 [facility] Comment on above: Performed By: #### C BC, BMP ####[facility] [id number] [place] [address] [facility] Sodium [Moles/Vol] 136 mmol/L Normal 136-[address] [facility] Comment on above: Performed By: #### C JUANITA, BMP ####[facility] [id number] [place] [address] [facility] Urea nitrogen [Mass/Vol] 33 mg/dL High 7-25 [facility] Comment on above: Performed By: #### C JUANITA, BMP ####[facility] [place] [address] [facility] Basophils Auto (Bld) [#/Vol] Ordered By: Obaydah Daromar on 02-14-2023 Basophils (Bld) [#/Vol] 0.0 10*3/uL 0.0-0.2 [facility] Basophils/100 WBC Auto (Bld) Ordered By: Obaydah Daromar on 02-14-2023 Basophils/100 WBC (Bld) 0.1 % . [facility] Calcium [Mass/volume] in Ser um or PlasmaOrdered By: Obaydah Daromar on 02-14-2023 Calcium [Mass/Vol] 9.4 mg/dL 8.6-10.[address] [facility] Carbon dioxide, total [Moles /volume] in Serum or PlasmaOrdered By: Obaydah Daromar on 02-14-2023 CO2 [Moles/Vol] 26.2 mmol/L 21.0-31.0 [facility] Chloride [Moles/volume] in S oralia or PlasmaOrdered By: Obaydah Daromar on 02-14-2023 Chloride [Moles/Vol] 103 mmol/L 98-107 [facility] Complete Blood Count Auto Di ffon 02-14-2023 Basophils (Bld) [#/Vol] 0.0 10*3/uL Normal 0.0-0.2 [facility] Comment on above: Result Comment: PERF ORMED BY: [facility] [address] [place] [address] PATHOLOGIST [employer] JERAMY CALDWELL M.D. Performed By: #### C BC, BMP ####[address] [address] [place] Basophils/100 WBC (Bld) 0.1 % Normal . [facility] Comment on above: Performed By: #### C BC, BMP ####[address] [address] [facility] Eosinophils (Bld) [#/Vol] 0.0 10*3/uL Normal 0.0-0.45 [facility] Comment on above: Performed By: #### C BC, BMP ####[address] [address] [facility] Eosinophils/100 WBC (Bld) 0.0 % Normal . [facility] Comment on above: Performed By: #### C BC, BMP ####[address] [address] [facility] Erythrocyte distribution width (RBC) [Ratio] 14.6 % Normal 11.9-15.3 [facility] Comment on above: Performed By: #### C JUANITA, BMP ####[address] [address] [facility] Hematocrit (Bld) [Volume fraction] 44.5 % Normal 34.0-46.4 [facility] Comment on above: Performed By: #### C BC, BMP ####[address] [address] [facility] Hemoglobin (Bld) [Mass/Vol] 15.1 g/dL Normal 11.8-15.4 [facility] Comment on above: Performed By: #### C BC, BMP ####[address] [address] [place] Lymphocytes (Bld) [#/Vol] 1.0 10*3/uL Normal 1.00-4.8 [facility] Comment on above: Performed By: #### C BC, BMP ####[address] [address] [facility] Lymphocytes/100 WBC (Bld) 7.6 % Normal . [facility] Comment on above: Performed By: #### C BC, BMP ####[address] [place] [address] [facility] MCH (RBC) [Entitic mass] 30.6 pg Normal 24.7-34.3 [facility] Comment on above: Performed By: #### C BC, BMP ####[address] [address] [facility] MCV (RBC) [Entitic vol] 90.4 fL Normal 80-100 [facility] Comment on above: Performed By: #### C BC, BMP ####[address] [address] [facility] Mean Corpuscular HGB Conc 33.9 g/dL Normal 32.0-35.0 [facility] Comment on above: Performed By: #### C BC, BMP ####[id number] [facility] Monocytes (Bld) [#/Vol] 0.6 10*3/uL Normal 0.0-0.8 [facility] Comment on above: Performed By: #### C JUANITA, BMP ####[id number] [facility] Monocytes/100 WBC (Bld) 4.7 % Normal . [facility] Comment on above: Performed By: #### C BC, BMP ####[id number] [facility] Neutrophils (Bld) [#/Vol] 11.1 10*3/uL High 1.8-7.7 [facility] Comment on above: Performed By: #### C BC, BMP ####[address] [address] [facility] Neutrophils/100 WBC (Bld) 87.6 % Normal . [facility] Comment on above: Performed By: #### C BC, BMP ####[id number] [facility] NRBC% 0.0 /100{WBC} Normal 0-0.5 [facility] Comment on above: Performed By: #### C BC, BMP ####[facility] [place] [address] [facility] Platelet mean volume (Bld) [Entitic vol] 8.5 fL Normal 6.3-10.7 [facility] Comment on above: Performed By: #### C JUANITA, BMP ####[address] [place] [address] [facility] Platelets (Bld) [#/Vol] 220 10*3/uL Normal 150-450 [facility] Comment on above: Performed By: #### C JUANITA, BMP ####[address] [place] [address] [facility] RBC (Bld) [#/Vol] 4.92 10*6/uL Normal 3.60-5.00 [facility] Comment on above: Performed By: #### C JUANITA, BMP ####[address] [place] [address] [facility] WBC (Bld) [#/Vol] 12.7 10*3/uL High 3.8-11.6 [facility] Comment on above: Performed By: #### C , BMP ####[id number] [facility] Creatinine [Mass/volume] in Serum or PlasmaOrdered By: Obpatriciadah Antioneomar on 02-14-2023 Creatinine [Mass/Vol] 1.35 mg/dL 0.60-1.20 [facility] Eosinophils Auto (Bld) [#/Vo l]Ordered By: Obaydah Daromar on 02-14-2023 Eosinophils (Bld) [#/Vol] 0.0 10*3/uL 0.0-0.45 [facility] Eosinophils/100 WBC Auto (Bl d)Ordered By: Obaydah Daromar on 02-14-2023 Eosinophils/100 WBC (Bld) 0.0 % . [facility] Erythrocyte distribution wid th Auto (RBC) [Ratio]Ordered By: Obpatriciadah Daromar on 02-14-2023 Erythrocyte distribution width (RBC) [Ratio] 14.6 % 11.9-15.3 [facility] Glucose [Mass/volume] in Ser um or PlasmaOrdered By: Jacques East on 02-14-2023 Glucose [Mass/Vol] 136 mg/dL 70-[address] [facility] Comment on above: ADA recommended refe rence rangeRandom Glucose Reference Range is dependent on time and content of last meal. Glucose of more than 200 mg/dL in a nonstressed, ambulatory subject supports the diagnosis of Diabetes Mellitus. Hematocrit Auto (Bld) [Volum e fraction]Ordered By: Jacques East on 02-14-2023 Hematocrit (Bld) [Volume fraction] 44.5 % 34.0-46.4 [facility] Hemoglobin [Mass/volume] in BloodOrdered By: Jacques East on 02-14-2023 Hemoglobin (Bld) [Mass/Vol] 15.1 g/dL 11.8-15.4 [facility] Leukocytes [#/volume] correc elliot for nucleated erythrocytes in Blood by Automated counOrdered By: Jacques East on 02-14-2023 WBC corrected for nucl RBC Auto (Bld) [#/Vol] 12.7 10*3/uL 3.8-11.6 [facility] Lymphocytes Auto (Bld) [#/Vo l]Ordered By: Jacques East on 02-14-2023 Lymphocytes (Bld) [#/Vol] 1.0 10*3/uL 1.00-4.8 [facility] Lymphocytes/100 WBC Auto (Bl d)Ordered By: Jacques East on 02-14-2023 Lymphocytes/100 WBC (Bld) 7.6 % . [facility] MCH Auto (RBC) [Entitic mass ]Ordered By: Jacques East on 02-14-2023 MCH (RBC) [Entitic mass] 30.6 pg 24.7-34.3 [facility] MCHC Auto (RBC) [Mass/Vol]Or dered By: Jacques Chirinosr on 02-14-2023 MCHC (RBC) [Mass/Vol] 33.9 g/dL 32.0-35.0 [facility] MCV Auto (RBC) [Entitic vol] Ordered By: Allanenrique Talbotomar on 02-14-2023 MCV (RBC) [Entitic vol] 90.4 fL 80-100 [facility] Monocytes Auto (Bld) [#/Vol] Ordered By: Obpatriciadah Daromar on 02-14-2023 Monocytes (Bld) [#/Vol] 0.6 10*3/uL 0.0-0.8 [facility] Monocytes/100 WBC Auto (Bld) Ordered By: Obpatriciadah Antioneomar on 02-14-2023 Monocytes/100 WBC (Bld) 4.7 % . [facility] Neutrophils Auto (Bld) [#/Vo l]Ordered By: Obreinaldo Talbotomar on 02-14-2023 Neutrophils (Bld) [#/Vol] 11.1 10*3/uL 1.8-7.7 [facility] Neutrophils/100 WBC Auto (Bl d)Ordered By: Obpatriciadaenrique Talbotomar on 02-14-2023 Neutrophils/100 WBC (Bld) 87.6 % . [facility] No Panel InformationOrdered By: Jacques Talbotomar on 02-14-2023 Estimated GFR (CKD-EPI) 44.991 mL/Min [facility] Creatinine Clearance (Chem 40.59 [facility] Nucleated erythrocytes [Pres ence] in Blood by Automated countOrdered By: Jacques Talbotomar on 02-14-2023 Nucleated RBC Auto Ql (Bld) 0.0 /100{WBC} 0-0.5 [facility] Platelet mean volume Auto (B ld) [Entitic vol]Ordered By: Obpatriciadaenrique Talbotomar on 02-14-2023 Platelet mean volume (Bld) [Entitic vol] 8.5 fL 6.3-10.7 [facility] Platelets Auto (Bld) [#/Vol] Ordered By: Obpatriciadah Antioneomar on 02-14-2023 Platelets (Bld) [#/Vol] 220 10*3/uL 150-450 [facility] Potassium [Moles/volume] in Serum or PlasmaOrdered By: Obreinaldo Talbotomar on 02-14-2023 Potassium [Moles/Vol] 5.4 mmol/L 3.5-5.1 [facility] RBC Auto (Bld) [#/Vol]Ordere d By: Obaydah Daromar on 02-14-2023 RBC (Bld) [#/Vol] 4.92 10*6/uL 3.60-5.00 [facility] Serum or plasma anion gap de terminationOrdered By: Obaydah Daromar on 02-14-2023 Anion gap [Moles/Vol] 12.2 mmol/L 6.0-15.0 [facility] Sodium [Moles/volume] in Ser um or PlasmaOrdered By: Obaydah Daromar on 02-14-2023 Sodium [Moles/Vol] 136 mmol/L 136-[address] [facility] Urea nitrogen [Mass/volume] in Serum or PlasmaOrdered By: Obaydah Daromar on 02-14-2023 Urea nitrogen [Mass/Vol] 33 mg/dL 7-25 [facility] WBC Auto (Bld) [#/Vol]Ordere d By: Obaydah Daromar on 02-14-2023 WBC (Bld) [#/Vol] 12.7 10*3/uL 3.8-11.6 [facility] Alanine aminotransferase [En zymatic activity/volume] in Serum or PlasmaOrdered By: Obaydah Daromar on 02-13-2023 ALT [Catalytic activity/Vol] 16 U/L 7-52 [facility] Albumin [Mass/volume] in Ser um or Plasma by Bromocresol green (BCG) dye binding methoOrdered By: Obaydah Daromar on 02-13-2023 Albumin BCG dye [Mass/Vol] 4.0 g/dL 3.5-5.7 [facility] Alkaline phosphatase [Enzyma tic activity/volume] in Serum or PlasmaOrdered By: Obaydah Daromar on 02-13-2023 ALP [Catalytic activity/Vol] 57 U/L 34-104 [facility] Aspartate aminotransferase [ Enzymatic activity/volume] in Serum or PlasmaOrdered By: Obaydah Daromar on 02-13-2023 AST [Catalytic activity/Vol] 22 U/L 13-39 [facility] Bilirubin.total [Mass/volume ] in Serum or PlasmaOrdered By: Jacques East on 02-13-2023 Bilirubin [Mass/Vol] 0.6 mg/dL 0.3-1.0 [facility] Complete Blood Count Auto Di ffon 02-13-2023 Basophils (Bld) [#/Vol] 0.0 10*3/uL Normal 0.0-0.2 [facility] Comment on above: Result Comment: PERF ORMED BY: [facility] [address] [facility] [place] [address] PATHOLOGIST [employer] JERAMY CALDWELL M.D. Performed By: #### C JUANITA MG, CMP ####[address] Basophils/100 WBC (Bld) 0.2 % Normal . [facility] Comment on above: Performed By: #### C JUANITA MG, CMP ####[address] Eosinophils (Bld) [#/Vol] 0.0 10*3/uL Normal 0.0-0.45 [facility] Comment on above: Performed By: #### Kait GRANT MG, CMP ####[address] Eosinophils/100 WBC (Bld) 0.0 % Normal . [facility] Comment on above: Performed By: #### Kait BC MG, CMP ####[address] Erythrocyte distribution width (RBC) [Ratio] 14.4 % Normal 11.9-15.3 [facility] Comment on above: Performed By: #### C BC MG, CMP ####[address] Hematocrit (Bld) [Volume fraction] 43.2 % Normal 34.0-46.4 [facility] Comment on above: Performed By: #### C BC MG, CMP ####[address] [address] [place] Hemoglobin (Bld) [Mass/Vol] 14.6 g/dL Normal 11.8-15.4 [facility] Comment on above: Performed By: #### C JUANITA MG, CMP ####[address] Lymphocytes (Bld) [#/Vol] 2.7 10*3/uL Normal 1.00-4.8 [facility] Comment on above: Performed By: #### C JUANITA MG, CMP ####[address] Lymphocytes/100 WBC (Bld) 18.3 % Normal . [facility] Comment on above: Performed By: #### C JUANITA MG, CMP ####[address] MCH (RBC) [Entitic mass] 30.5 pg Normal 24.7-34.3 [facility] Comment on above: Performed By: #### C JUANITA MG, CMP ####[address] MCV (RBC) [Entitic vol] 90.1 fL Normal 80-100 [facility] Comment on above: Performed By: #### C JUANITA MG, CMP ####[address] Mean Corpuscular HGB Conc 33.8 g/dL Normal 32.0-35.0 [facility] Comment on above: Performed By: #### C BC MG, CMP ####[address] Monocytes (Bld) [#/Vol] 1.2 10*3/uL High 0.0-0.8 [facility] Comment on above: Performed By: #### C BC MG, CMP ####[address] Monocytes/100 WBC (Bld) 7.9 % Normal . [facility] Comment on above: Performed By: #### C BC MG, CMP ####[address] [place] [address] [facility] Neutrophils (Bld) [#/Vol] 11.0 10*3/uL High 1.8-7.7 [facility] Comment on above: Performed By: #### C BC, MG, CMP ####[address] [address] [facility] Neutrophils/100 WBC (Bld) 73.6 % Normal . [facility] Comment on above: Performed By: #### C BC, MG, CMP ####[id number] [facility] NRBC% 0.1 /100{WBC} Normal 0-0.5 [facility] Comment on above: Performed By: #### C BC, MG, CMP ####[id number] [facility] Platelet mean volume (Bld) [Entitic vol] 7.8 fL Normal 6.3-10.7 [facility] Comment on above: Performed By: #### C BC, MG, CMP ####[id number] [facility] Platelets (Bld) [#/Vol] 212 10*3/uL Normal 150-450 [facility] Comment on above: Performed By: #### C BC, MG, CMP ####[id number] [facility] RBC (Bld) [#/Vol] 4.80 10*6/uL Normal 3.60-5.00 [facility] Comment on above: Performed By: #### C BC, MG, CMP ####[id number] [facility] WBC (Bld) [#/Vol] 14.9 10*3/uL High 3.8-11.6 [facility] Comment on above: Performed By: #### C BC, MG, CMP ####[id number] [facility] Comprehensive Metabolic Pane franco 02-13-2023 Albumin [Mass/Vol] 4.0 g/dL Normal 3.5-5.[address] [facility] Comment on above: Performed By: #### C JUANITA MG, CMP ####[address] Albumin/Globulin [Mass ratio] 1.6 {ratio} Normal [facility] Comment on above: Performed By: #### C JUANITA MG, CMP ####[id number] [facility] ALP [Catalytic activity/Vol] 57 U/L Normal 34-104 [facility] Comment on above: Performed By: #### C JUANITA MG, CMP ####[address] ALT [Catalytic activity/Vol] 16 U/L Normal 7-52 [facility] Comment on above: Performed By: #### C JUANITA MG, CMP ####[address] Anion gap [Moles/Vol] 9.4 mmol/L Normal 6.0-15.0 [facility] Comment on above: Performed By: #### C JUANITA MG, CMP ####[address] AST [Catalytic activity/Vol] 22 U/L Normal 13-39 [facility] Comment on above: Performed By: #### C JUANITA MG, CMP ####[id number] [facility] Bilirubin [Mass/Vol] 0.6 mg/dL Normal 0.3-1.0 [facility] Comment on above: Performed By: #### C JUANITA MG, CMP ####[id number] [facility] Calcium [Mass/Vol] 9.2 mg/dL Normal 8.6-10.[address] [facility] Comment on above: Performed By: #### C BC MG, CMP ####[id number] [facility] Chloride [Moles/Vol] 105 mmol/L Normal 98-107 [facility] Comment on above: Performed By: #### C BC MG, CMP ####[address] [place] CO2 [Moles/Vol] 27.1 mmol/L Normal 21.0-31.0 [facility] Comment on above: Performed By: #### C BC, MG, CMP ####[address] Creatinine [Mass/Vol] 1.45 mg/dL High 0.60-1.20 [facility] Comment on above: Performed By: #### C BC MG, CMP ####[address] Creatinine Clr Calc Pharmacy 37.90 [facility] Comment on above: Performed By: #### C BC MG, CMP ####[address] GFR/1.73 sq M.predicted MDRD (S/P/Bld) [Vol rate/Area] 41.294 mL/min/{1.73_m2} [facility] Comment on above: Performed By: #### C BC MG, CMP ####[address] Globulin (S) [Mass/Vol] 2.5 g/dL [facility] Comment on above: Performed By: #### C BC, MG, CMP ####[address] Glucose [Mass/Vol] 92 mg/dL Normal 70-[address] [facility] Comment on above: Result Comment: [place] Glucose Reference Range is dependent on time and content of last meal. Glucose of more than 200 mg/dL in a nonstressed, ambulatory subject supports the diagnosis of Diabetes Mellitus. ADA recommended reference range Performed By: #### C BC, MG, CMP ####[address] Potassium [Moles/Vol] 4.5 mmol/L Normal 3.5-5.1 [facility] Comment on above: Performed By: #### C BC, MG, CMP ####[id number] [place] [id number] [facility] Protein [Mass/Vol] 6.5 g/dL Normal 6.4-8.[address] [facility] Comment on above: Performed By: #### C BC, MG, CMP ####[address] [place] [id number] [facility] Sodium [Moles/Vol] 137 mmol/L Normal 136-[address] [facility] Comment on above: Performed By: #### C BC, MG, CMP ####[address] [place] Urea nitrogen [Mass/Vol] 28 mg/dL High 7-25 [facility] Comment on above: Performed By: #### C BC, MG, CMP ####[address] [place] [id number] [facility] Globulin Calc (S) [Mass/Vol] Ordered By: Obaydah Daromar on 02-13-2023 Globulin (S) [Mass/Vol] 2.5 g/dL [facility] Magnesiumon 02-13-2023 Magnesium [Mass/Vol] 1.8 mg/dL Low 1.9-2.7 [facility] Comment on above: Result Comment: PERF ORMED BY: [facility] [address] [place] [address] PATHOLOGIST [employer] PROFESSIONAL JERAMY CALDWELL M.D. Performed By: #### C BC, MG, CMP ####[address] [place] [id number] [facility] Magnesium [Mass/volume] in S oralia or PlasmaOrdered By: Obaydah Daromar on 02-13-2023 Magnesium [Mass/Vol] 1.8 mg/dL 1.9-2.7 [facility] Protein [Mass/volume] in Ser um or PlasmaOrdered By: Obaydah Daromar on 02-13-2023 Protein [Mass/Vol] 6.5 g/dL 6.4-8.[address] [facility] Serum or plasma albumin/glob ulin mass ratioOrdered By: Jacques East on 02-13-2023 Albumin/Globulin [Mass ratio] 1.6 {ratio} [facility] Activated partial thrombopla stin time (aPTT) in platelet poor plasma by coagulation aOrdered By: Sally Kelechiadelia on 02-12-2023 aPTT Coag (PPP) [Time] 25.6 s 25.1-36.5 [facility] Comment on above: A hematocrit value g reater than 55% may lead to inaccurate results in coagulation testing. Patients having hematocrit values >55% require a special collection tube for coagulation studies. Please contact the laboratory at [phone] for redraw instructions. Aerobic Cultureon 02-12-2023 Aerobic Culture Light Normal Respira tory Zoe 2 Days Gram Stain Result Rare Epithelial Cells 1+ White Blood Cells Rare Gram Positive Coccobacilli PERFORMED BY: [place] [address] PATHOLOGIST [employer] PROFESSIONAL JERAMY CALDWELL M.D. Normal [facility] Comment on above: Performed By: #### A [facility], #### [address] Auth for Release of Medical Recordson 02-12-2023 Auth for Release of Medical Records [id number] Normal [facility] Automated erythrocytes count in urine sediment (number/area)Ordered By: Jacques East on 02-12-2023 RBC Auto (Urine sed) [#/Area] 1-2 [HPF] 0-4 [facility] Automated leukocytes count i n urine sediment (number/area)Ordered By: Jacques East on 02-12-2023 WBC Auto (Urine sed) [#/Area] 3-4 [HPF] 0-4 [facility] Bilirubin Test strip Ql (U)O rdered By: Jacques East on 02-12-2023 Bilirubin Ql (U) Negative Negative [facility] C Urineon 02-12-2023 Bacteria identified Cx Nom (U) Microbiology PROCEDURE: Urine Culture [R1] SOURCE: U CleanCatch BODY SITE: COLLECTED DATE/TIME: 02/10/2023 14:48 EST RECEIVED DATE/TIME: 02/10/2023 17:04 EST START DATE/TIME: 02/10/2023 17:04 EST FREE TEXT SOURCE: Jaxson Johnson PA-C. Jaxson Johnson PA-C. FINAL REPORTS Final Report [] Verified Date/Time: [...] R1: This test was performed at: [facility], [address] [place] [address], [address] , [place], Normal [facility] Comment on above: Performed By: #### [id number] ####[facility] [id number] [place] [address] Coagulation Profileon 2022 aPTT Coag (Bld) [Time] 25.6 s Normal 25.1-36.5 [facility] Comment on above: Result Comment: A he matocrit value greater than 55% may lead to inaccurate results in coagulation testing. Patients having hematocrit values >55% require a special collection tube for coagulation studies. Please contact the laboratory at [phone] for redraw instructions. PERFORMED BY: [facility] [address] [place] [address] PATHOLOGIST [employer] PROFESSIONAL JERAMY CALDWELL M.D. Performed By: #### C SUKH GRANT, CMP ####[address] [place] [address] [facility] INR Coag (PPP) [Relative time] 0.9 {INR} Normal [facility] Comment on above: Result Comment: INR Therapeutic [...] Performed By: #### C JUANITA, PP, CMP ####[address] [place] [address] [facility] PT Coag (PPP) [Time] 10.9 s Normal 9.0-12.9 [facility] Comment on above: Result Comment: A he matocrit value greater than 55% may lead to inaccurate results in coagulation testing. Patients having hematocrit values >55% require a special collection tube for coagulation studies. Please contact the laboratory at [phone] for redraw instructions. Performed By: #### C BC, PP, CMP ####[facility] [address] Color Auto (U)Ordered By: Glenroy East on 02-12-2023 Color (U) Yellow Yellow [facility] Complete Blood Count Auto Di ffon 02-12-2023 Basophils (Bld) [#/Vol] 0.0 10*3/uL Normal 0.0-0.2 [facility] Comment on above: Result Comment: PERF ORMED BY: [place] [address] PATHOLOGIST [employer] PROFESSIONAL JERAMY CALDWELL M.D. Performed By: #### C BC, PP, CMP #### [facility] [address] [place] [address] Basophils/100 WBC (Bld) 0.2 % Normal . [facility] Comment on above: Performed By: #### C BC, PP, CMP #### [facility] [address] Eosinophils (Bld) [#/Vol] 0.0 10*3/uL Normal 0.0-0.45 [facility] Comment on above: Performed By: #### C BC, PP, CMP #### [facility] [address] Eosinophils/100 WBC (Bld) 0.0 % Normal . [facility] Comment on above: Performed By: #### C BC, PP, CMP #### [facility] [address] Erythrocyte distribution width (RBC) [Ratio] 14.6 % Normal 11.9-15.3 [facility] Comment on above: Performed By: #### C BC, PP, CMP #### [address] Hematocrit (Bld) [Volume fraction] 46.1 % Normal 34.0-46.4 [facility] Comment on above: Performed By: #### C BC, PP, CMP #### [address] Hemoglobin (Bld) [Mass/Vol] 15.6 g/dL High 11.8-15.4 [facility] Comment on above: Performed By: #### C BC, PP, CMP #### [address] Lymphocytes (Bld) [#/Vol] 0.6 10*3/uL Low 1.00-4.8 [facility] Comment on above: Performed By: #### C BC, PP, CMP #### [address] Lymphocytes/100 WBC (Bld) 4.0 % Normal . [facility] Comment on above: Performed By: #### C BC, PP, CMP #### [address] MCH (RBC) [Entitic mass] 30.6 pg Normal 24.7-34.3 [facility] Comment on above: Performed By: #### C BC, PP, CMP #### [address] MCV (RBC) [Entitic vol] 90.6 fL Normal 80-100 [facility] Comment on above: Performed By: #### C BC, PP, CMP #### [address] Mean Corpuscular HGB Conc 33.8 g/dL Normal 32.0-35.0 [facility] Comment on above: Performed By: #### C BC, PP, CMP #### [address] Monocytes (Bld) [#/Vol] 0.3 10*3/uL Normal 0.0-0.8 [facility] Comment on above: Performed By: #### C BC, PP, CMP #### [facility] [address] [place] [address] [place] Monocytes/100 WBC (Bld) 1.8 % Normal . [facility] Comment on above: Performed By: #### C BC, PP, CMP #### [facility] [address] [place] [address] [place] Neutrophils (Bld) [#/Vol] 14.1 10*3/uL High 1.8-7.7 [facility] Comment on above: Performed By: #### C BC, PP, CMP #### [facility] [address] [place] [address] [place] Neutrophils/100 WBC (Bld) 94.0 % Normal . [facility] Comment on above: Performed By: #### C BC, PP, CMP #### [facility] [address] [place] [address] [place] NRBC% 0.1 /100{WBC} Normal 0-0.5 [facility] Comment on above: Performed By: #### C BC, PP, CMP #### [facility] [address] [place] [address] [place] Platelet mean volume (Bld) [Entitic vol] 7.9 fL Normal 6.3-10.7 [facility] Comment on above: Performed By: #### C BC, PP, CMP #### [facility] [address] [place] [address] [place] Platelets (Bld) [#/Vol] 236 10*3/uL Normal 150-450 [facility] Comment on above: Performed By: #### C BC, PP, CMP #### [facility] [address] [place] [address] [place] RBC (Bld) [#/Vol] 5.09 10*6/uL High 3.60-5.00 [facility] Comment on above: Performed By: #### C BC, PP, CMP #### [facility] [address] [place] [address] [place] WBC (Bld) [#/Vol] 15.0 10*3/uL High 3.8-11.6 [facility] Comment on above: Performed By: #### C BC, PP, CMP #### [address] Comprehensive Metabolic Pane franco 02-12-2023 Albumin [Mass/Vol] 4.6 g/dL Normal 3.5-5.7 [facility] [facility] Comment on above: Performed By: #### C JUANITA, PP, CMP #### [address] Albumin/Globulin [Mass ratio] 1.5 {ratio} Normal [facility] Comment on above: Performed By: #### C JUANITA, PP, CMP #### [address] ALP [Catalytic activity/Vol] 70 U/L Normal 34-104 [facility] Comment on above: Performed By: #### C JUANITA, PP, CMP #### [address] ALT [Catalytic activity/Vol] 19 U/L Normal 7-52 [facility] Comment on above: Performed By: #### C JUANITA, PP, CMP #### [address] Anion gap [Moles/Vol] Not performed Normal 6.0-15.0 [facility] Comment on above: Performed By: #### C BC, PP, CMP #### [address] AST [Catalytic activity/Vol] 29 U/L Normal 13-39 [facility] Comment on above: Performed By: #### C BC, PP, CMP #### [address] Bilirubin [Mass/Vol] 0.5 mg/dL Normal 0.3-1.0 [facility] Comment on above: Performed By: #### C BC, PP, CMP #### [address] Calcium [Mass/Vol] 9.9 mg/dL Normal 8.6-10.[address] [facility] Comment on above: Performed By: #### C BC, PP, CMP #### [facility] [address] Chloride [Moles/Vol] 106 mmol/L Normal 98-107 [facility] Comment on above: Performed By: #### C BC, PP, CMP #### [facility] [address] CO2 [Moles/Vol] 20.4 mmol/L Low 21.0-31.0 [facility] Comment on above: Performed By: #### C BC, PP, CMP #### [facility] [address] Creatinine [Mass/Vol] 1.65 mg/dL High 0.60-1.20 [facility] Comment on above: Performed By: #### C BC, PP, CMP #### [facility] [address] [place] [address] [place] Creatinine Clr Calc Pharmacy 34.03 [facility] Comment on above: Result Comment: PERF ORMED BY: [place] [address] PATHOLOGIST [employer]ITY [employer] PROFESSIONAL JERAMY CALDWELL M.D. Performed By: #### C BC, PP, CMP #### [facility] [address] GFR/1.73 sq M.predicted MDRD (S/P/Bld) [Vol rate/Area] 35.363 mL/min/{1.73_m2} [facility] Comment on above: Performed By: #### C BC, PP, CMP #### [facility] [address] [place] [address] [place] Globulin (S) [Mass/Vol] 3.1 g/dL [facility] Comment on above: Performed By: #### C BC, PP, CMP #### [facility] [address] [place] [address] [place] Glucose [Mass/Vol] 157 mg/dL High 70-[address] [facility] Comment on above: Result Comment: [place] Glucose Reference Range is dependent on time and content of last meal. Glucose of more than 200 mg/dL in a nonstressed, ambulatory subject supports the diagnosis of Diabetes Mellitus. ADA recommended reference range Performed By: #### C BC, PP, CMP #### [facility] [address] Potassium Normal 3.5-5.1 [facility] Comment on above: Result Comment: Spec imen hemolyzed, redraw requested Performed By: #### C BC, PP, CMP #### [facility] [address] Protein [Mass/Vol] 7.7 g/dL Normal 6.4-8.[address] [facility] Comment on above: Performed By: #### C BC, PP, CMP #### [facility] [address] Sodium [Moles/Vol] 140 mmol/L Normal 136-[address] [facility] Comment on above: Performed By: #### C BC, PP, CMP #### [facility] [address] [place] [address] [place] Urea nitrogen [Mass/Vol] 32 mg/dL High - [facility] Comment on above: Performed By: #### C BC, PP, CMP #### [facility] [address] [place] [address] [place] Dipstick and Microscopicon 1 04-15-2022 Appearance (U) Clear Normal Clear [facility] Comment on above: Order Comment: Name Collection Type:: Clean-Voided Midstream Performed By: #### A DDONUAPLUS #### [facility] [address] [place] [id number] [place] Bacteria,Urine None Seen Normal None Seen [facility] Comment on above: Order Comment: Name Collection Type:: Clean-Voided Midstream Performed By: #### A DDONUAPLUS #### [facility] [address] [place] [id number] [place] Bilirubin,Urine Negative Normal Negative [facility] Comment on above: Order Comment: Name Collection Type:: Clean-Voided Midstream Performed By: #### A DDONUAPLUS #### [facility] [address] [place] [address] [place] Color (U) Yellow Normal Yellow [facility] Comment on above: Order Comment: Name Collection Type:: Clean-Voided Midstream Performed By: #### A DDONUAPLUS #### [facility] [address] [place] [address] [place] Glucose Ql (U) Normal Normal Normal [facility] Comment on above: Order Comment: Name Collection Type:: Clean-Voided Midstream Performed By: #### A DDONUAPLUS #### [place] [address] [place] Hyaline Casts,Urine 0-8 Normal 0-8 [facility] Comment on above: Order Comment: Name Collection Type:: Clean-Voided Midstream Result Comment: PERF ORMED BY: [place] [address] PATHOLOGIST [employer]ITY [employer] PROFESSIONAL JERAMY CALDWELL M.D. Performed By: #### A DDONUAPLUS #### [facility] [address] [place] [address] [place] Ketones Ql (U) Negative Normal Negative [facility] Comment on above: Order Comment: Name Collection Type:: Clean-Voided Midstream Performed By: #### A DDONUAPLUS #### [facility] [address] [place] [address] [place] Leukocyte esterase Test strip Ql (U) 1+ High Negative [facility] Comment on above: Order Comment: Name Collection Type:: Clean-Voided Midstream Performed By: #### A DDONUAPLUS #### [facility] [address] [place] [address] [place] Nitrite,Urine Negative Normal Negative [facility] Comment on above: Order Comment: Name Collection Type:: Clean-Voided Midstream Performed By: #### A DDONUAPLUS #### [facility] [address] [place] [address] [place] Occult Blood,Urine Negative Normal Negative [facility] Comment on above: Order Comment: Name Collection Type:: Clean-Voided Midstream Result Comment: PERF ORMED BY: [place] [address] PATHOLOGIST [employer]ITY [employer] PROFESSIONAL JERAMY CALDWELL M.D. Performed By: #### A DDONUAPLUS #### [address] pH (U) 5.0 [pH] Normal 5.0-9.0 [facility] Comment on above: Order Comment: Name Collection Type:: Clean-Voided Midstream Performed By: #### A DDONUAPLUS #### [address] Protein,Urine Negative Normal Negative [facility] Comment on above: Order Comment: Name Collection Type:: Clean-Voided Midstream Performed By: #### A DDONUAPLUS #### [address] RBC,Urine 1-2 Normal 0-4 [facility] Comment on above: Order Comment: Name Collection Type:: Clean-Voided Midstream Performed By: #### A DDONUAPLUS #### [address] Specificy [place],Urine 1.017 Normal 1.001-1.03 0 [facility] Comment on above: Order Comment: Name Collection Type:: Clean-Voided Midstream Performed By: #### A DDONUAPLUS #### [place] [address] [place] Squamous Epithelial Cell,Urine 0-1 Normal 0-2 [facility] Comment on above: Order Comment: Name Collection Type:: Clean-Voided Midstream Performed By: #### A DDONUAPLUS #### [facility] [address] [place] [address] [place] Urobilinogen,Urine Normal Normal Normal [facility] Comment on above: Order Comment: Name Collection Type:: Clean-Voided Midstream Performed By: #### A DDONUAPLUS #### [place] [address] [place] WBC,Urine 3-4 Normal 0-4 [facility] Comment on above: Order Comment: Name Collection Type:: Clean-Voided Midstream Performed By: #### A DDONUAPLUS #### [address] ECG 12 lead ECGon 02-12-2023 ECG 12 lead ECG [facility] Main [place] [address] [place] [address] Electrocardiograph Report Signed Patient: Deysi Hernandez MR#: [id number] : 1960 Acct:[id number] Age/Sex: 62 / F ADM Date: 02/12/23 Loc: Room: [address] [place] [address] Type: ADM IN Attending Dr: Jacques East [...] leads QT has shortened Confirmed by BJ ABY DO ([id number]) on 02/13/2023 11:09:18 AM Referred By: Electronically Signed By:BJ BAY DO Transcribed By: MUS Signed By Bj Bay DO 02/13 1109 [facility] Gram Stainon 02-12-2023 Microscopic observation Gram stain Nom (Unsp spec) Gram Stain Result Rare Epithelial Cells 1+ White Blood Cells Rare Gram Positive Coccobacilli PERFORMED BY: [place] [address] PATHOLOGIST [employer]ITY [employer] PROFESSIONAL JERAMY CALDWELL M.D. [facility] Comment on above: Performed By: #### A AUGUSTUS YOUNG #### [facility] [address] Gram stain for investigation of transfusion reactionOrdered By: Jacques East on 02-12-2023 Microscopic observation Gram stain Nom (Unsp spec) [facility] Microscopic observation Gram stain Nom (Unsp spec) 2 Days [facility] INR in Platelet poor plasma by Coagulation assayOrdered By: Sally Valle on 02-12-2023 INR Coag (PPP) [Relative time] 0.9 {INR} [facility] Comment on above: INR Therapeutic Rang e [...] 02-12-2023 Ketones (U) [Mass/Vol] Negative Negative Fi [facility] Laboratory - UrinalysisOrder ed By: Jacques East on 02-12-2023 Hyaline casts LM Ql (Urine sed) 0-8 [LPF] 0-8 [facility] Magnesiumon 02-12-2023 Magnesium [Mass/Vol] 1.8 mg/dL Low 1.9-2.7 [facility] Comment on above: Result Comment: PERF ORMED BY: [facility] [address] [place] [address] PATHOLOGIST COMMUNITY SUPPORT PROFESSIONAL JERAMY CALDWELL M.D. Performed By: #### M G ####[facility] [id number] Nitrite Test strip Ql (U)Ord ered By: Jacques East on 02-12-2023 Nitrite Ql (U) Negative Negative [facility] Protein Auto test strip (U) [Mass/Vol]Ordered By: Jacques East on 02-12-2023 Protein (U) [Mass/Vol] Negative Negative Fi [facility] Prothrombin time (PT)Ordered By: Sally Valle on 02-12-2023 PT Coag (PPP) [Time] 10.9 s 9.0-12.9 [facility] Comment on above: A hematocrit value g reater than 55% may lead to inaccurate results in coagulation testing. Patients having hematocrit values >55% require a special collection tube for coagulation studies. Please contact the laboratory at [phone] for redraw instructions. Redraw Potassiumon 3 Potassium [Moles/Vol] 4.4 mmol/L Normal 3.5-5.1 [facility] Comment on above: Order Comment: 1ST S pecimen hemolyzed, redraw requested Result Comment: PERF ORMED BY: [facility] [address] [place] [id number] PATHOLOGIST COMMUNITY SUPPORT PROFESSIONAL JERAMY CALDWELL M.D. Performed By: #### R EDW K ####[place] [id number] [facility] Specific gravity Auto test s trip (U) [Rel density]Ordered By: SustainXreinaldo Gra[employer] Electronicshannah on 02-12-2023 Specific gravity (U) [Rel density] 1.017 1.001-1.03 0 [facility] Squamous epithelial cells de tection in urine sediment by light microscopyOrdered By: SustainXreinaldo TalbotThe Idle Manhannah on 02-12-2023 Epithelial cells.squamous LM Ql (Urine sed) 0-1 [HPF] 0-2 [facility] Troponin I High Sensitivityo n 02-12-2023 Troponin I High Sensitivity 43.8 pg/mL High 0.0-15.0 [facility] Comment on above: Result Comment: PERF ORMED BY: [facility] [address] [place] [id number] PATHOLOGIST COMMUNITY SUPPORT PROFESSIONAL JERAMY CALDWELL M.D. Performed By: #### H S TROP ####[place] [id number] [facility] Troponin I High Sensitivity 70.6 pg/mL Off scale high 0.0-15.0 [facility] Comment on above: Result Comment: Crit ical Result : Called to and read back by: BRANDON LEVINE at: 02/12/2023 08:07:31 by:LUCIANO PERFORMED BY: [place] [address] PATHOLOGIST COMMUNITY SUPPORT PROFESSIONAL JERAMY CALDWELL M.D. Performed By: #### H S TROP ####[facility] [id number] Troponin I.cardiac [Mass/vol ume] in Serum or Plasma by Detection limit <= 0.01 ng/Ordered By: Sally Valle on 02-12-2023 Troponin I.cardiac DL <= 0.01 ng/mL [Mass/Vol] 43.8 pg/mL 0.0-15.0 [facility] Urine bacteria detection by automated methodOrdered By: Jacques East on 02-12-2023 Bacteria Auto Ql (U) None seen None Seen [facility] Urine clarity by refractomet ry automatedOrdered By: Jacques East on 02-12-2023 Clarity Refractometry automated (U) Clear Clear [facility] Urine glucose measurement by automated test strip (mass/volume)Ordered By: Jacques East on 02-12-2023 Glucose Auto test strip (U) [Mass/Vol] Normal mg/dL Normal [facility] Urine hemoglobin detection b y automated test stripOrdered By: Jacques Chirniosr on 02-12-2023 Hemoglobin Auto test strip Ql (U) Negative Negative [facility] Urine leukocyte esterase det ection by automated test stripOrdered By: Jacques East on 02-12-2023 Leukocyte esterase Auto test strip Ql (U) 1+ Negative [facility] Urobilinogen Auto test strip (U) [Mass/Vol]Ordered By: Jacques Chirinosr on 02-12-2023 Urobilinogen (U) [Mass/Vol] Normal mg/dL Normal [facility] XR chest 1V portableon 02-12 XR chest 1V portable [facility] [place] [address] XRay Report Signed Patient: Deysi Hernandez MR#: [id number] : 1960 Acct:[id number] Age/Sex: 62 / F ADM Date: 02/12/23 Loc: Room: [address] [place] [address] Type: ADM IN Attending Dr: Jacques East [...] Bj Ma M.D.02/12/2023 12:40 PM Dictation Location: [place] [address] Transcribed By: [facility] 02/12/23 1240 Dictated By: Bj Ma DO 02/12/23 1237 Signed By: 02/12/23 1240 Normal [facility] pH Auto test strip (U)Ordere d By: Jacques East on 02-12-2023 pH (U) 5.0 [pH] 5.0-9.0 [facility] Ambulatory Visit Summaryon 1 04-13-2022 Ambulatory Visit Summary DEYSI HERNANDEZ :1960 Visit Date:02/10/2023 Ambulatory Visit Instructions Your Diagnosis Dysuria Tests Performed Urnls Dip Stick Auto w/o Microscopy POC 38080 Your Care Team Attending Physician - Alex [...] Urnls Dip Stick Auto w/o Microscopy POC 60995 (02/10/2023) Bilirubin Urine Dipstick - Negative Blood Urine Dipstick - 2+ Moderate Glucose Urine Dipstick - Negative Ketones Urine Dipstick - Negative Leukocytes Urine Dipstick - 1+ Small Nitrite Urine Dipstick - Positive Protein Urine Dipstick - Negative Specific [place] Urine Dipstick - 1.015 Urine Appearance Urine [...] for choosing us for your care. Normal [facility] Auto Diffon 02-10-2023 Basophils/100 WBC (Bld) 1.3 % Normal 0.0-2.0 [facility] Comment on above: Order Comment: Order Added by Discern Expert. Performed By: #### 2 875235, 21442702, 92918162, 6726474, 0796064, 96278076, 74332391 ####[facility] [address] [place] [address] Basophils/Leukocytes Auto (Bld) [Pure # fraction] 0.1 E9/L Normal 0.0-0.2 [facility] Comment on above: Order Comment: Order Added by Discern Expert. Performed By: #### 2 143072, 75374443, 47086631, 5171100, 6793411, 40088745, 95077375 ####[place] [address] [place] [address] Eosinophils/100 WBC (Bld) 1.5 % Normal 0.0-8.0 [facility] Comment on above: Order Comment: Order Added by Discern Expert. Performed By: #### 2 678183, 64513542, 99103598, 1338792, 1623779, 15723747, 25927422 ####[place] [address] [place] [address] Eosinophils/Leukocytes Auto (Bld) [Pure # fraction] 0.1 E9/L Normal 0.0-0.5 [facility] Comment on above: Order Comment: Order Added by Discern Expert. Performed By: #### 2 225176, 72741629, 77525155, 3549142, 8454019, 50752904, 42729202 ####[place] [address] [place] [address] Lymphocytes/100 WBC (Bld) 16.8 % Normal 14.0-50.0 [facility] Comment on above: Order Comment: Order Added by Discern Expert. Performed By: #### 2 541602, 91825186, 92517601, 8706705, 0007791, 74210687, 91020387 ####[place] [address] [place] [address] Lymphocytes/Leukocytes Auto (Bld) [Pure # fraction] 1.6 E9/L Normal 1.0-4.0 [facility] Comment on above: Order Comment: Order Added by Discern Expert. Performed By: #### 2 457309, 93086149, 37131932, 2373797, 7504565, 10603701, 53833315 ####[place] [address] [place] [address] Monocytes/100 WBC (Bld) 9.8 % Normal 4.0-14.0 [facility] Comment on above: Order Comment: Order Added by Discern Expert. Performed By: #### 2 940970, 97863741, 21493726, 5693580, 7195741, 91452931, 98682735 ####[place] [address] [place] [address] Monocytes/Leukocytes Auto (Bld) [Pure # fraction] 0.9 E9/L Normal 0.2-1.0 [facility] Comment on above: Order Comment: Order Added by Edmund Expert. Performed By: #### 2 445529, 34706030, 98792990, 2375309, 7606796, 66827940, 41323000 ####[place] [address] [place] [address] Neutrophils/100 WBC (Bld) 70.6 % Normal 36.0-75.0 [facility] Comment on above: Order Comment: Order Added by Edmund Expert. Performed By: #### 2 519737, 17053324, 38395873, 3848955, 1900340, 98839788, 65189689 ####[place] [address] [place] [address] Neutrophils/Leukocytes Auto (Bld) [Pure # fraction] 6.7 E9/L Normal 2.0-7.5 [facility] Comment on above: Order Comment: Order Added by Edmund Expert. Performed By: #### 2 815230, 21442858, 53671678, 6492586, 1222534, 57006651, 45324445 ####[place] [address] [place] [address] BMPon 02-10-2023 Anion gap [Moles/Vol] 14 mmol/L Normal 6-[address] [facility] Comment on above: Performed By: #### 2 138947, 70824139, 27586351, 7749552, 0522084, 59172120, 69523044 ####[facility] [address] [place] [address] BUN/Creat Ratio 12 No Units Normal 10-20 [facility] Comment on above: Performed By: #### 2 008610, 68433073, 30982605, 9207025, 8355527, 82872082, 10673137 ####[facility] [address] [place] [address] Calcium [Mass/Vol] 9.7 mg/dL Normal 8.9-11.1 [facility] Comment on above: Performed By: #### 2 319269, 64551772, 46700846, 3327542, 9412809, 79123906, 17270621 ####[facility] [address] [place] [address] Chloride [Moles/Vol] 107 mmol/L Normal 101-111 [facility] Comment on above: Performed By: #### 2 185437, 18279668, 23650544, 1128162, 3902173, 09335477, 58555858 ####[facility] [address] [place] [address] CO2 [Moles/Vol] 25 mmol/L Normal 21-31 [facility] Comment on above: Performed By: #### 2 300738, 31521405, 02050458, 6107857, 0800297, 22556719, 43626963 ####[facility] [address] [place] [address] Creatinine [Mass/Vol] 1.4 mg/dL High 0.5-1.[address] [facility] Comment on above: Performed By: #### 2 391437, 53609387, 50599600, 5742650, 5519775, 64117068, 85399188 ####[facility] [address] [place] [address] Glucose [Mass/Vol] 84 mg/dL Normal 55-199 [facility] Comment on above: Performed By: #### 2 155666, 98511654, 63020422, 1916112, 1736022, 89164281, 31729723 ####[facility] [address] [place] [address] Potassium [Moles/Vol] 4.8 mmol/L Normal 3.5-5.[address] [facility] Comment on above: Performed By: #### 2 008956, 16614218, 88037567, 0785126, 0965357, 69359456, 04177473 ####[facility] [address] [place] [address] Sodium [Moles/Vol] 141 mmol/L Normal 135-145 [facility] Comment on above: Performed By: #### 2 631791, 28858097, 32270750, 1897156, 5334544, 60567283, 44567987 ####[facility] [address] [place] [address] Urea nitrogen [Mass/Vol] 17 mg/dL Normal 5-21 [facility] Comment on above: Performed By: #### 2 686747, 70868726, 55974328, 8218908, 1611208, 75102697, 78397153 ####[facility] [address] [place] [address] BNPon 02-10-2023 Natriuretic peptide B (Bld) [Mass/Vol] 39 pg/mL Normal 5-80 [facility] Comment on above: Performed By: #### 2 960010, 98830515, 40585293, 8205130, 8999632, 03221861, 96904020 ####[facility] [address] [place] [address] CBC w/ Auto Diffon Erythrocyte distribution width (RBC) [Ratio] 14.4 % High 10.9-14.2 [facility] Comment on above: Performed By: #### 2 225097, 97856796, 24874323, 7818550, 6900343, 40196310, 39515103 ####[place] [address] [place] [address] Hematocrit (Bld) [Volume fraction] 50.0 % High 34.0-46.0 [facility] Comment on above: Performed By: #### 2 259557, 49953960, 03461755, 3841004, 9725529, 99743577, 44278475 ####[place] [address] [place] [address] Hemoglobin (Bld) [Mass/Vol] 16.8 g/dL High 12.0-16.0 [facility] Comment on above: Performed By: #### 2 653441, 51798760, 28311452, 8674275, 0044624, 41704088, 94214527 ####[address] [address] MCH (RBC) [Entitic mass] 30.1 pg Normal 27.0-34.0 [facility] Comment on above: Performed By: #### 2 867209, 84830745, 61525086, 8426522, 6074853, 40680127, 15990913 ####[address] [address] MCHC (RBC) [Mass/Vol] 33.7 g/dL Normal 31.4-36.[address] [facility] Comment on above: Performed By: #### 2 762344, 31519317, 06323565, 8136754, 4552610, 11296951, 13900716 ####[address] [address] MCV (RBC) [Entitic vol] 89.4 fL Normal 80.0-100.0 [facility] Comment on above: Performed By: #### 2 432976, 75149990, 31862450, 2001393, 5543123, 19323978, 22437585 ####[place] [address] [place] [address] Platelet mean volume (Bld) [Entitic vol] 8.0 fL Normal 6.4-10.8 [facility] Comment on above: Performed By: #### 2 609156, 64695559, 46497994, 0952537, 5267465, 60987908, 51524577 ####[place] [address] [place] [address] Platelets (Bld) [#/Vol] 202.0 E9/L Normal 150.0-500. 0 [facility] Comment on above: Performed By: #### 2 936108, 50741866, 55893137, 4129305, 8603181, 35837303, 65162962 ####[place] [address] [place] [address] RBC (Bld) [#/Vol] 5.6 E12/L Normal 4.3-5.9 [facility] Comment on above: Performed By: #### 2 527003, 99109357, 61262600, 5474950, 2315061, 37588148, 93012159 ####[address] [address] WBC corrected for nucl RBC Auto (Bld) [#/Vol] 9.4 E9/L Normal 4.0-11.0 [facility] Comment on above: Performed By: #### 2 664472, 64037744, 89936908, 5212531, 3679615, 95325821, 33844993 ####[address] [address] CHEMISTRYOrdered By: SYSTEM SYSTEM on 02-10-2023 Anion [...] Sensitivity Troponin I Instructions For Use, Kavita [place], September 2017) Urea nitrogen [Mass/Vol] 17 mg/dL Normal 5 - 21 mg/dL [facility] Urea nitrogen/Creatinine [Mass ratio] 12 mg/mg Normal 10 - 20 [facility] CHEMISTRYOrdered By: Estela Reyna on 02-10-2023 Natriuretic peptide B (Bld) [Mass/Vol] 39 pg/mL Normal 5 - 80 pg/mL [facility] COAGULATIONOrdered By: Veronica Guidry on 02-10-2023 aPTT Coag (PPP) [Time] 29.2 s Normal 25.1 - 36.5 second(s) [facility] Comment on above: Interpretive Data: Kacey diallo 15 days - 4 weeks 1 - 5 months 6 - 11 months 1 - 5 years 6 - 10 years 11 - 17 years PTT Mean: 35.4 (27.6-45.6) Mean: 33.5 (24.8-40.7) Mean: 32.4 (25.1-40.7) Mean: 31.6 (24.0-39.2) Mean: 31.6 (26.9-38.7) Mean: 31.0 (24.6-38.4) Pediatric Reference ranges were obtained from a study by Matt Manchester, et al. prepared from 1437 samples obtained at 7 different centers using the same coagulation reagent and instrumentation as [facility]. Currently there are no coagulation studies available worldwide for children to 14 days, and no normal ranges. Heparin therapeutic range (represented by Anti-Factor Xa activity of 0.2 - 0.4 U/mL) corresponds to PTT of 56.6 - 109.0 sec. INR Coag (PPP) [Relative time] 1.0 {INR} Invalid Interpretation Code [facility] Comment on above: Interpretive Data: I NR results are specifically intended to assess patients stabilized on long-term Anticoagulation therapy suggested INR s Less Intensive Anticoagulation 2.0 3.0 Conventional Range 3.0 4.5 PT Coag (PPP) [Time] 11.6 s Normal 9.4 - 1 2.5 second(s) [facility] Comment on above: Interpretive Data: [...] coagulation reagent and instrumentation as [facility]. Currently there are no coagulation studies available worldwide for children to 14 days, and no normal ranges. Consent for Treatmenton 01-19 Consent for Treatment [id number] Normal [facility] Discharge Instructionson Discharge Instructions [id number] F Normal [facility] ED Clinical Summaryon 2022 ED Clinical Summary (Inserted Image. Neelam ble to display) [address] [address] ED Clinical Summary Person Information Name: DEYSI HERNANDEZ [facility] Age: 62 Years : 1960 Sex: Female Language: Tristanian PCP: SHAIKH THOMPSON MD Marital Status: Visit [...] 02/10/2023 17:12:09 02/10/2023 17:12:09 ADDRESS: [address] [facility] [id number] PHYS DOC NOTES: MEDICAL INFORMATION: Prescriptions Given: New Medications [id number], [address] [place], [place] [id number], [phone] cefdinir (cefdinir 300 mg Cap) 1 Capsules [...] Tablets By Mouth every day. Misc Prescription ([facility] ASPIRIN EC 81 MG TABLET) 0. omeprazole (omeprazole 40 mg Cap-DR) 1 Capsules By Mouth every day. Refills: 2. PATIENT EDUCATION INFORMATION: Instructions: Urinary Tract Infection, Adult, Otpr-ed-Nghg; Acute Bronchitis, Adult Follow up: With: Address: When: SHAIKH DONNA [address], [place] [phone] [employer] (1) In 3 days 02/13/2023 Comments: Follow-up with your primary care provider in 3 to 5 days. If symptoms worsen, do not improve, or new symptoms arise please report back to emergency department for further evaluation. DIAGNOSIS: Bronchitis; UTI (urinary tract infection) Normal [facility] ED Note-Nursingon 02-10-2023 ED Note-Nursing EKG late due to vanessa ent being in the bathroom when called. Normal [facility] ED Note-Physicianon 02-11-20 ED Note-Physician Basic Information [...] (N39.0: Urin (more content not included)... Normal [facility] Comment on above: Result Comment: Elec tronically [...] these instructions at home: Medicines ? Take arfo-eea-rraacgv and prescription medicines only as told by [...] provider. Document Revised: 09/16/2020 Document Reviewed: 09/16/2020 [employer] Patient Education ? 2022 [employer]. Pulmonary Medicine Acute Bronchitis, Adult Acute bronchitis [...] The f (more content not included)... Normal [facility] ED Patient Summaryon 023 ED Patient Summary (Inserted Image. Neelam ble to display) [place] [id number] Patient Discharge Instructions Person Information Name: DEYSI HERNANDEZ Age: 62 Years Arrival Date: 02/10/2023 14:37:39 Discharge Diagnosis: Bronchitis; UTI (urinary tract infection) Primary Care Physician: SHAIKH THOMPSON MD Provider Information Primary Provider: Gabby De Oliveira M.D. Advanced Fisher Diver Net:None The exam and treatment you received in the Emergency Department were for an urgent problem and are not intended as complete care. It is important that you follow up with a doctor, nurse practitioner, or physician?s imaging assistant for ongoing care. If your symptoms [...] With: Address: When: SHAIKH DONNA [address], [place] [phone] Business (1) In 3 days 02/13/2023 Comments: [...] Patient Education Materials: Urinary Tract Infection, Adult, Ppqt-xv-Ghao; Acute Bronchitis, Adult A MESSAGE TO ALL PATIENTS REGARDING OPIOIDS PRESCRIPTION OPIOIDS: WHAT YOU NEED TO KNOW Prescription opioids can be used to help relieve rmnixmrt-tz-vipyys pain and are often prescribed following a [...] Visit www.cdc.gov/ (more content not included)... Normal [facility] Family Medicine Office/Clini c Noteon 02-10-2023 Family [...] send her to the emergency department at [facility]. She was offered EMS transfer but she [...] hurt by (more content not included)... Normal [facility] Comment on above: Result Comment: Elec tronically [...] Influenzae A Ag Negative Normal Negative [facility] Comment on above: Performed By: #### 1 [id number], [id number] ####James [facility] [address] [place] [address] Influenzae B Ag Negative Normal Negative [facility] Comment on above: Result Comment: Test sensitivity and specificity vary for age group, specimen type, antigen types, and prevalence of disease. Test results must be evaluated in conjunction with other clinical data available to the physician. Individuals who received nasally administered Influenza A vaccine may have positive test results up to 3 days after vaccination. Performed By: #### 1 [id number], [id number] ####James [facility] [address] [place] [address] MICRO OTHER TESTSOrdered By: Trudy Guidry on 02-10-2023 Influenzae A Ag Negative (02/10/23 3:25 PM) Normal Negative [facility] Influenzae B Ag Negative 1 (02/10/23 3:25 PM) Normal Negative [facility] Comment on above: Interpretive Data: T [...] NEG Ctl Pass (02/10/23 3:25 PM) Normal [facility] Rapid COV Int POS Ctl Pass (02/10/23 3:25 PM) Normal [facility] SARS-CoV+SARS-CoV-2 (COVID-19) Ag IA.rapid Ql (Resp) Not Detected 6 (02/10/23 3:25 PM) Normal Not Detected [facility] Comment on above: Interpretive Data: T he [employer] Veritor System for Rapid Detection of SARS-CoV-2 [...] Coag (PPP) [Time] 29.2 second(s) Normal 25.1-36.5 [facility] Comment on above: Result Comment: Para meter [...] coagulation reagent and instrumentation as [facility]. Currently there are no coagulation studies available worldwide for children to 14 days, and no normal ranges. Heparin therapeutic range (represented by Anti-Factor Xa activity of 0.2 - 0.4 U/mL) corresponds to PTT of 56.6 - 109.0 sec. Performed By: #### 2 [id number], [id number], [id number], 1217149, 6598841, [id number], [id number] ####[facility] [address] [place] [address] INR Coag (PPP) [Relative time] 1.0 {INR} Invalid Interpretation Code [facility] Comment on above: Result Comment: INR results are specifically intended to assess patients stabilized on long-term Anticoagulation therapy suggested INR?s ?Less Intensive Anticoagulation? 2.0 ? 3.0 Conventional Range 3.0 ? 4.5 Performed By: #### 2 [id number], [id number], [id number], 8516181, 8361389, [id number], [id number] ####[facility] [address] [place] [address] PT Coag (PPP) [Time] 11.6 second(s) Normal 9.4-12.5 [facility] Comment on above: Result Comment: 15 d [...] coagulation reagent and instrumentation as [facility]. Currently there are no coagulation studies available worldwide for children to 14 days, and no normal ranges. Performed By: #### 2 629743, [id number], 14896931, 7924928, 8462775, 13407502, 28102808 ####[facility] [address] [place] [address] Rapid COVID Antigen ([facility])on 02-10-2023 Rapid COV Int NEG Ctl Pass Normal [facility] Comment on above: Performed By: #### 1 [id number], [id number] ####James [facility] [address] [place] [address] Rapid COV Int POS Ctl Pass Normal Fis her [facility] Comment on above: Performed By: #### 1 0460142, [id number] ####[facility] [address] [place] [address] SARS-CoV+SARS-CoV-2 (COVID-19) Ag IA.rapid Ql (Resp) Not detected Normal Not Detected [facility] Comment on above: Result Comment: The vozeroitor? System for Rapid Detection of SARS-CoV-2 is [...] or revoked sooner. Performed By: #### 1 [id number], [id number] ####[facility] [address] [place] [address] Troponin 0 Hr.on 02-10-2023 Troponin 5.80 pg/mL Low 10.10-27.1 0 [facility] Comment on above: Result Comment: The 95% CI (Confidence Interval) PPV (Positive Predictive Value) for myocardial infarction in females is 38 pg/mL, in males 51 pg/mL. The results should be used in conjunction with clinical conditions of myocardial infarction. (Access High Sensitivity Troponin I Instructions For Use, [employer], September 2017) Performed By: #### 2 599452, [id number], [id number], 7547841, 4445030, 58876186, [id number] ####[facility] [address] [place] [address] XR Chest Single Viewon 02-10 XR Chest [...] mGy = na DAP = na Normal [facility] eGFRon 02-10-2023 eGFR 43 mL/min/1.73 m2 Low >=59 [facility] Comment on above: Order Comment: Order added by Discern Expert. Performed By: #### 2 643789, [id number], 04011143, 4407386, 1097308, 94083652, [id number] ####Ramirez [facility] [address] [place] [address] Lizbet 10-26-2022 VERONICAN Telephone (AARON) ----- DEYSI HERNANDEZ ([id number]) 1960 F Date Time Provider Department 10/26/22 [...] question. I will also send her a CHAINels message encouraging communicate via CHAINels if needed. Debra Fishman MD Staff, Department of Kidney Medicine 10/26/22 5:49 PM Allergies As of Date: 10/26/2022 Noted Allergy Reaction CODEINE 09/07/2014 7 - Swelling Date Reviewed: 10/09/2022 Reviewed by: Rosie Harris DO - Fully Assessed Reason for Visit: Patient Question [4707] Prescriptions as of 10/26/2022 - lisinopril (ZESTRIL) [...] Encounter Status:Closed by DEBRA FISHMAN on 10/26/22 [facility] Lizbet 10-25-2022 CNPN Telephone (Gymtrack) ----- DEYSI HERNANDEZ ([id number]) 1960 F Date Time Provider Department 10/25[facility] During your visit today, we recorded the following information about you: Linn Solis Ma 10/25/2022 12:36 PM Signed Patient called the office very upset because today at here appointment with Kidney Medicine she was seen by another provider and it wasn't her kidney doctor. She would like Dr. Fishman call her back at [phone] because she has lots of questions that [...] Fully Assessed Reason for Visit: Patient Question [4701] Prescriptions as of 10/25/2022 - lisinopril (ZESTRIL) [...] Status:Closed by LINN SOLIS MA on 10/25/22 [facility] Urineon 10-18-2022 Bacteria identified Cx Nom [...] R1: This test was performed at: [facility], [address] [place] [address], [address] , [place], [facility] Comment on above: Performed By: #### 2 [id number] ####[place] [address] [place] [address] Family Medicine Office/Clini c Noteon 10-15-2022 Family [...] with voice recognition software. Occasional wrong-word or ?nlrwh-i-elrj? substitutions may have occurred due to the inherent limitations of voice recognition software. 62-year-old female with history of stage III chronic kidney disease, hyperlipidemia, hypertension, current smoker presents [facility] with chief complaint of possible urinary tract infection. She does note that she has been seen urology in the past in regards to stress incontinence. She also notes that she sees nephrology out of [facility]. Patient states she sees them every 6 months for history of her chronic kidney disease in which she states that her right kidney does a lot of work in her left kidney does not function. Patient states a history of urosepsis several years ago and she does not really recall 5 of her days of hospitalization or transfer from [facility] to [facility]. Patient states that on of [...] day(s), # 21 cap(s), Refills(s) 0, Pharmacy: [id number], 163, cm, 10/15/22 17:40:00 EDT, Height/Length [...] day(s), # 21 cap(s), Refills(s) 0, Pharmacy: [id number], 163, cm, 10/15/22 17:40:00 EDT, Height/Length Dosing, 72.3, kg, 10/15/22 17:40:00 EDT, Weight Dosing 3. Smoker (F17.200: Nicotine dependence, unspecified (more content not included)... Normal [facility] Comment on above: Result Comment: Elec tronically [...] numbers. This can be done either in Tristanian (U.S[place] or metric measurements. Note that charts and online BMI calculators are available to help you find your BMI quickly and easily without having to do these calculations yourself. To calculate your BMI in Tristanian ([place].S.) measurements: 1. Measure your weight in [...] for Disease Control and Prevention: www.cdc.gov ? [place] Heart Association: www.heart.org ? National Heart, Lung, and Blood [place]: www.nhlbi.nih.gov Summary ? Body mass index (BMI) is a number that is calculated from a person's weight and height. ? BMI may help estimate how much of a person's weight is composed of fat. BMI can help identify those who may be at higher risk for certain medical problems. ? BMI can be measured using Tristanian measurements or metric measurements. ? BMI charts are used to identify whether you are underweight, normal weight, overweight, or obese. This information is not intended to replace advice given to you by your health care provider. Make sure you discuss any questions you have with your health care provider. Document Revised: 10/28/2019 Document Reviewed: 09/04/2019 [employer] Patient Education ? 2022 [employer]. Obstetrics and Gynecology Urinary Tract Infection, Adult [...] condition if: (more content not included)... Normal [facility] 10-11-2022 [facility] Telephone (WIQ) ----- DEYSI HERNANDEZ ([id number]) 1960 F Date Time Provider Department 10/11/22 CATHIE MOORE WIQ During your visit today, we recorded the following information about you: Cathie Moore, [facility] 10/11/2022 12:57 PM Signed Smoking Cessation Navigation Outcome of contact: Left Message Comments: A voicemail has been left for this patient regarding Tobacco Cessation support options. If this patient has any further questions they can email us at or call us at [phone]. [employer] Installer/Smoking Cessation Navigator: [facility] Allergies As of Date: 10/11/2022 Noted Allergy [...] Encounter Status:Closed by CATHIE MOORE on 10/11/22 [facility] Sami 10-09-2022 ÓSCAR Office Visit (ELPIDIO ) ----- DEYSI HERNANDEZ ([id number]) 1960 F Date Time Provider Department 10/09/22 2:00 PM GURMEET OJEDA During your visit today, we recorded the following information about you: Temperature Pulse Blood pressure Weight 97.5 degrees 60/minute 91/60 71.3 kg Height 1.575 m Rosie Harris DO 10/09/2022 5:08 PM S[address] [facility] NEPHROLOG[facility]YPERTENSION [facility] SERVICE DATE: 10/09/2022 [...] CKD, ESRD, hearing loss. 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 Normal [facility] URINALYSIS, REFLEX MICROSCOP ICon 10-09-2022 Bacteria LM.HPF (Urine sed) [#/Area] Few Abnormal None Seen [facility] Comment on above: Order Comment: Speci men Type: URINE SPECIMEN [facility] Address: [address] [place] [address] Performed By: #### L [id number] #### [facility] CLIA [id number] [address] [place] [address] [place] Bilirubin Ql (U) Negative Normal Negative [facility] Comment on above: Order Comment: Speci men Type: URINE SPECIMEN [facility] Address: [address] [place] [address] Performed By: #### L [id number] #### [facility] CLIA [id number] [address] [place] [address] [place] Clarity (Unsp spec) Cloudy Abnormal Clear [facility] Comment on above: Order Comment: Speci men Type: URINE SPECIMEN [facility] Address: [address] [place] [address] Performed By: #### L [id number] #### [facility] CLIA [id number] [facility] [place] [address] [place] Color (U) Light Yellow Normal Yellow [facility] Comment on above: Order Comment: Speci men Type: URINE SPECIMEN [facility] Address: [address] [place] [address] Performed By: #### L [id number] #### [facility] CLIA [id number] [facility] [place] [address] [place] Epithelial cells LM.HPF (Urine sed) [#/Area] Few Normal [facility] Comment on above: Order Comment: Speci men Type: URINE SPECIMEN [facility] Address: [address] Performed By: #### L [id number] #### [facility] CLIA [id number] [address] [place] [address] [place] Glucose Test strip (U) [Mass/Vol] Negative Normal Trace, Negative [facility] Comment on above: Order Comment: Speci men Type: URINE SPECIMEN [facility] Address: [address] Performed By: #### L [id number] #### [facility] CLIA [id number] [address] [place] [address] [place] Hemoglobin Ql (U) Trace Normal Negative, Trace [facility] Comment on above: Order Comment: Speci men Type: URINE SPECIMEN [facility] Address: [address] Performed By: #### L [id number] #### [facility] CLIA [id number] [address] [place] [address] [place] Ketones Ql (U) Negative Normal Negative, Trace [facility] Comment on above: Order Comment: Speci men Type: URINE SPECIMEN [facility] Address: [address] Performed By: #### L [id number] #### [facility] CLIA [id number] [address] [place] [address] [place] Leukocyte esterase Test strip Ql (U) 250 Bonnie/uL Abnormal Negative, 25 Bonnie/uL [facility] Comment on above: Order Comment: Speci men Type: URINE SPECIMEN [facility] Address: [address] Performed By: #### L [id number] #### [facility] CLIA [id number] [address] [place] [address] [place] Nitrite Ql (U) 2+ Abnormal Negative [facility] Comment on above: Order Comment: Speci men Type: URINE SPECIMEN [facility] Address: [address] [place] [address] Performed By: #### L [id number] #### [facility] CLIA [id number] [address] [place] [address] [place] pH (U) 5.5 [pH] Normal 5.0-8.0 [facility] Comment on above: Order Comment: Speci men Type: URINE SPECIMEN [facility] Address: [address] [place] [address] Performed By: #### L [id number] #### [facility] CLIA [id number] [address] [place] [address] [place] Protein (U) [Mass/Vol] Negative Normal Trace , Negative [facility] Comment on above: Order Comment: Speci men Type: URINE SPECIMEN [facility] Address: [address] [place] [address] Performed By: #### L [id number] #### [facility] CLIA [id number] [address] [place] [address] [place] RBC LM.HPF (Urine sed) [#/Area] 0-3 /HPF Normal 0-3 /HPF [facility] Comment on above: Order Comment: Speci men Type: URINE SPECIMEN [facility] Address: [address] [place] [address] Performed By: #### L [id number] #### [facility] CLIA [id number] [address] [place] [address] [place] Specific gravity (U) [Rel density] 1.015 Normal 1.005-1.03 0 [facility] Comment on above: Order Comment: Speci men Type: URINE SPECIMEN [facility] Address: [address] [place] [address] Performed By: #### L [id number] #### [facility] CLIA [id number] [address] [place] [address] [place] Urobilinogen Ql (U) Negative Normal Negative [facility] Comment on above: Order Comment: Speci men Type: URINE SPECIMEN [facility] Address: [address] [place] [address] Performed By: #### L [id number] #### [facility] CLIA [id number] [address] [place] [address] [place] WBC LM.HPF (Urine sed) [#/Area] /[HPF] Abnormal 0-5 /HPF [facility] Comment on above: Order Comment: Speci men Type: URINE SPECIMEN [facility] Address: [address] [place] [address] Performed By: #### L [id number] #### [facility] CLIA [id number] [address] [place] [address] [place] Bacteria LM.HPF (Urine sed) [#/Area] Few Abnormal None Seen /HPF [facility] Bilirubin Ql (U) Negative Negative [facility] Clarity (Unsp spec) Cloudy Abnormal Clear [facility] Color (U) Light Yellow Yellow [facility] Epithelial cells LM.HPF (Urine sed) [#/Area] Few [facility] Glucose Test strip (U) [Mass/Vol] Negative Trace, Negative [facility] Hemoglobin Ql (U) Trace Negative, Trace [facility] Ketones Ql (U) Negative Negative, Trace [facility] Leukocyte esterase Test strip Ql (U) 250 Bonnie/uL Abnormal Negative, 25 Bonnie/uL [facility] Nitrite Ql (U) 2+ Abnormal Negative [facility] pH (U) 5.5 [pH] 5.0 - 8.0 [facility] Protein (U) [Mass/Vol] Negative Trace , Negative [facility] RBC LM.HPF (Urine sed) [#/Area] 0-3 /HPF 0-3 /HPF [facility] Specific gravity (U) [Rel density] 1.015 1.005 - 1.030 [facility] Urobilinogen Ql (U) Negative Negative [facility] WBC LM.HPF (Urine sed) [#/Area] /[HPF] Abnormal 0-5 /HPF [facility] Consenton 09-03-2022 Consent [id number]:1 27 Normal [facility] Registrationon 09-03-2022 Registration [id number]:1 27 Normal [facility] 25([facility])D3 [facility] 25-hydroxyvitamin D3 [Mass/Vol] 34.5 ng/mL Normal 31.0-80.0 [facility] Comment on above: Order Comment: Speci men Type: BLOOD SPECIMEN [facility] Address: [address] [place] [address] Result Comment: Clas sification of 25 [place] Vitamin D status: Deficiency/Insufficiency: < or = 30 ng/ml. Sufficiency/Optimal Levels: 31-80 ng/mL Toxicity: > 100 ng/mL. Test performed by chemiluminescent immunoassay. Performed By: #### 1 989-3 #### [facility] CLIA [id number] [address] [place] [address] OF TRAV IMMUNOFIXATION SCREEN, SERUM on 08-23-2022 [facility] RESULT No M protein is identified. Normal No M protein is identified . [facility] Comment on above: Order Comment: Speci men Type: BLOOD SPECIMEN [facility] Address: [address] [place] [id number] Performed By: #### I [facility] #### [facility] CLIA [id number] [address] [place] [address] OF TRAV STAFF REVIEW (MPA) Reviewed by Cortes Alfredo MD, Ph.D ([id number]) Normal [facility] Comment on above: Order Comment: Speci men Type: BLOOD SPECIMEN [facility] Address: [address] [place] [address] Performed By: #### I FESC #### [facility] CLIA [id number] [address] [place] [address] [place] IMMUNOGLOBULINS GAMon 2022 IgA [Mass/Vol] 218 mg/dL Normal 70-400 [facility] Comment on above: Order Comment: Speci men Type: BLOOD SPECIMEN [facility] Address: [address] [place] [address] Performed By: #### S ERIMM #### [facility] CLIA [id number] [address] [place] [address] [place] IgG [Mass/Vol] 775 mg/dL Normal 700-1600 [facility] Comment on above: Order Comment: Speci men Type: BLOOD SPECIMEN [facility] Address: [address] [place] [address] Performed By: #### S ERIMM #### [facility] CLIA [id number] [address] [place], [place] [address] [place] IgM [Mass/Vol] 129 mg/dL Normal 40-230 [facility] Comment on above: Order Comment: Speci men Type: BLOOD SPECIMEN [facility] Address: [address] [place] [address] Performed By: #### S ERIMM #### [facility] CLIA [id number] [address] [place] [address] [place] KAPPA/THAO,FREE,SERon 2022 Immunoglobulin light chains.kappa.free (S) [Mass/Vol] 26.1 mg/L High 3.3-19.4 [facility] Comment on above: Order Comment: Speci men Type: BLOOD SPECIMEN [facility] Address: [address] [place] [address] Result Comment: Rare ly, increased serum free light chains levels may not be detected or accurately quantified due to prozone phenomenon or in high viscosity samples using this immunoturbidimetric assay. Correlation with other laboratory results and clinical findings is recommended. The [place] [address] Free Light Chain was performed using the Binding Site Optilite immunoturbidimetric method. Result obtained with different assay methods or kits cannot be used interchangeably. Performed By: #### K LFRS #### [facility] CLIA [id number] [address] [place] [address] OF [facility] Immunoglobulin light chains.kappa/Immunoglo bulin light chains.lambda (S) [Mass ratio] 1.01 Normal 0.26-1.65 [facility] Comment on above: Order Comment: Speci men Type: BLOOD SPECIMEN [facility] Address: [address] [place] [address] Performed By: #### K LFRS #### [facility] CLIA [id number] [address] [place] [address] Immunoglobulin light chains.lambda.free [Mass/Vol] 25.9 mg/L Normal 5.7-26.3 [facility] Comment on above: Order Comment: Speci men Type: BLOOD SPECIMEN [facility] Address: [address] [place] [address] Result Comment: Rare ly, increased serum free [...] interchangeably. Performed By: #### K LFRS #### [facility] CLIA [id number] [address] [place] [address] [place] Renal function 2000 panelon 08-23-2022 Albumin [Mass/Vol] 4.3 g/dL Normal 3.9-4.9 [facility] Comment on above: Order Comment: Speci men Type: BLOOD SPECIMEN [facility] Address: [address] Performed By: #### 2 4362-6 #### [facility] [place] [id number] [address] [place] [address] [place] Anion gap [Moles/Vol] 9 mmol/L Normal 9-18 [facility] Comment on above: Order Comment: Speci men Type: BLOOD SPECIMEN [facility] Address: [address] Performed By: #### 2 4362-6 #### [facility] IA [id number] [address] [place] [address] [place] Calcium [Mass/Vol] 9.9 mg/dL Normal 8.5-10.2 [facility] Comment on above: Order Comment: Speci men Type: BLOOD SPECIMEN [facility] Address: [address] Performed By: #### 2 4362-6 #### [facility] IA [id number] [address] [place] [address] [place] Chloride [Moles/Vol] 105 mmol/L Normal 97-105 [facility] Comment on above: Order Comment: Speci men Type: BLOOD SPECIMEN [facility] Address: [address] Performed By: #### 2 4362-6 #### [facility] IA [id number] [address] [place] [address] [place] CO2 [Moles/Vol] 25 mmol/L Normal 22-30 [facility] Comment on above: Order Comment: Speci men Type: BLOOD SPECIMEN [facility] Address: [address] Performed By: #### 2 4362-6 #### [facility] IA [id number] [address] [place] [address] [place] Creatinine [Mass/Vol] 1.42 mg/dL High 0.58-0.96 [facility] Comment on above: Order Comment: Carmen juarez Type: BLOOD SPECIMEN [facility] Address: [address] [address] Performed By: #### 2 4362-6 #### [facility] CLIA [id number] [address] [place] [address] [place] ESTIMATED GLOMERULAR FILTRATION RATE 42 mL/min/1.73m??? Low >=60 [facility] Comment on above: Order Comment: Carmen juarez Type: BLOOD SPECIMEN [facility] Address: [address] [place] [address] Result Comment: Jody mated Glomerular Filtration Rate [...] GFR. Performed By: #### 2 4362-6 #### [facility] CLIA [id number] [address] [place] [address] [place] Glucose [Mass/Vol] 70 mg/dL Low 74-99 [facility] Comment on above: Order Comment: Carmen larry Type: BLOOD SPECIMEN [facility] Address: [address] [place] [address] Result Comment: The [place] Diabetes Association (ADA) provides guidance for cutoff [...] Standards of Medical Care in Diabetes 2016, [place] [employer]. Diabetes Care. 2016.39(Suppl 1). Performed By: #### 2 4362-6 #### [facility] IA [id number] [address] [place] [address] [place] Phosphate [Mass/Vol] 2.5 mg/dL Low 2.7-4.8 [facility] Comment on above: Order Comment: Speci men Type: BLOOD SPECIMEN [facility] Address: [address] [place] [address] Performed By: #### 2 4362-6 #### [facility] IA [id number] [address] [place] [address] [place] Potassium [Moles/Vol] 4.8 mmol/L Normal 3.7-5.1 [facility] Comment on above: Order Comment: Speci men Type: BLOOD SPECIMEN [facility] Address: [address] [place] [address] Performed By: #### 2 4362-6 #### [facility] IA [id number] [place] [address] [place] Sodium [Moles/Vol] 139 mmol/L Normal 136-144 [facility] Comment on above: Order Comment: Speci men Type: BLOOD SPECIMEN [facility] Address: [address] [place] [address] Performed By: #### 2 4362-6 #### [facility] IA [id number] [place] [address] [place] Urea nitrogen [Mass/Vol] 18 mg/dL Normal 7-21 [facility] Comment on above: Order Comment: Speci men Type: BLOOD SPECIMEN [facility] Address: [address] [place] [address] Performed By: #### 2 4362-6 #### [facility] IA [id number] [place] [address] [place] US KIDNEY/BLADDERon 08-24-19 23 US KIDNEY/BLADDER * * *Final Report* * * DATE OF EXAM: Aug 23 2022 2:15PM [address] KIDNEY/BLADDER / PROCEDURE REASON: Stage 3b [...] residual bladder volume 4. Right renal cyst Numerical Control Operator: PSCB Transcribe Date/Time: Aug 28 2022 8:25A Dictated by : ALEAH QUINN MD This examination was interpreted and the report reviewed and electronically signed by: ALEAH QUINN MD on Aug 28 2022 8:28AM EST [id number] [facility] 08-09-[address] [facility] Office Visit (ELPIDIO ) ----- DEYSI HERNANDEZ ([id number]) 1960 F Date Time Provider Department 08/09/22 3:00 PM GURMEET OJEDA During your visit today, we recorded the following information about you: Temperature Pulse Blood pressure Weight 97.7 degrees 65/minute 98/64 72.5 kg Height 1.575 m Debra Fishman MD 08/09/2022 7:02 PM Signed 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 Normal [facility] URINALYSIS, REFLEX MICROSCOP ICon 08-09-2022 Bilirubin Ql (U) Negative Normal Negative [facility] Comment on above: Order Comment: Speci men Type: URINE SPECIMEN [facility] Address: [address] [place] [address] Performed By: #### L [id number] #### [facility] CLIA [id number] [address] [place] [address] [place] Clarity (Unsp spec) Clear Normal Clear [facility] Comment on above: Order Comment: Speci men Type: URINE SPECIMEN [facility] Address: [address] [place] [address] Performed By: #### L [id number] #### [facility] CLIA [id number] [address] [place] [address] [place] Color (U) Light Yellow Normal Yellow [facility] Comment on above: Order Comment: Speci men Type: URINE SPECIMEN [facility] Address: [address] [place] [address] Performed By: #### L [id number] #### [facility] CLIA [id number] [address] [place] [address] [place] Glucose Test strip (U) [Mass/Vol] Negative Normal Trace, Negative [facility] Comment on above: Order Comment: Speci men Type: URINE SPECIMEN [facility] Address: [address] [address] Performed By: #### L [id number] #### [facility] CLIA [id number] [address] [place] [address] [place] Hemoglobin Ql (U) Negative Normal Negative, Trace [facility] Comment on above: Order Comment: Speci men Type: URINE SPECIMEN [facility] Address: [address] Performed By: #### L [id number] #### [facility] CLIA [id number] [address] [place] [address] [place] Ketones Ql (U) Negative Normal Negative, Trace [facility] Comment on above: Order Comment: Speci men Type: URINE SPECIMEN [facility] Address: [address] [place], [place] [address] Performed By: #### L [id number] #### [facility] CLIA [id number] [address] [place] [address] [place] Leukocyte esterase Test strip Ql (U) 75 Bonnie/uL Abnormal Negative, 25 Bonnie/uL [facility] Comment on above: Order Comment: Speci men Type: URINE SPECIMEN [facility] Address: [address] Performed By: #### L [id number] #### [facility] CLIA [id number] [address] [place] [address] [place] Nitrite Ql (U) Negative Normal Negative [facility] Comment on above: Order Comment: Speci men Type: URINE SPECIMEN [facility] Address: [address] Performed By: #### L [id number] #### [facility] CLIA [id number] [address] [place] [address] [place] pH (U) 6.0 [pH] Normal 5.0-8.0 [facility] Comment on above: Order Comment: Speci men Type: URINE SPECIMEN [facility] Address: [address] [place], [place] [address] Performed By: #### L [id number] #### [facility] CLIA [id number] [facility] [place] [address] [place] Protein (U) [Mass/Vol] Negative Normal Trace , Negative [facility] Comment on above: Order Comment: Speci men Type: URINE SPECIMEN [facility] Address: [address] [place] [address] Performed By: #### L [id number] #### [facility] CLIA [id number] [address] [place] [address] [place] Specific gravity (U) [Rel density] 1.009 Normal 1.005-1.03 0 [facility] Comment on above: Order Comment: Speci men Type: URINE SPECIMEN [facility] Address: [address] [place] [address] Performed By: #### L [id number] #### [facility] CLIA [id number] [address] [place] [address] [place] Urobilinogen Ql (U) Negative Normal Negative [facility] Comment on above: Order Comment: Speci men Type: URINE SPECIMEN [facility] Address: [address] [place] [address] Performed By: #### L [id number] #### [facility] CLIA [id number] [address] [place] [address] [place] Bilirubin Ql (U) Negative Negative [facility] Clarity (Unsp spec) Clear Clear [facility] Color (U) Light Yellow [facility] Glucose Test strip (U) [Mass/Vol] Negative Trace, Negative [facility] Hemoglobin Ql (U) Negative Negative, Trace [facility] Ketones Ql (U) Negative Negative, Trace [facility] Leukocyte esterase Test strip Ql (U) 75 Bonnie/uL Abnormal Negative, 25 Bonnie/uL [facility] Nitrite Ql (U) Negative Negative [facility] pH (U) 6.0 [pH] 5.0 - 8.0 [facility] Protein (U) [Mass/Vol] Negative Trace , Negative [facility] Specific gravity (U) [Rel density] 1.009 1.005 - 1.030 [facility] Urobilinogen Ql (U) Negative Negative [facility] Consent for Procedure/Surger yon 06-19-2022 Consent for Procedure/Surgery [id number]:12 7 Normal [facility] Gastroenterology Office/Clin ic Noteon 06-16-2022 Gastroenterology [...] colonoscopy at the beginning of 02/2022 in [facility]. She states that they did remove a [...] a few months ago at an outside facility/[place]. She was found to have a few polyps. She was advised to repeat her colonoscopy in 2027. ATTESTATION: Documentation services were performed after patient or guardian consented to allow Chandan Obregon to record this visit. MIKALA process laboratory specialist and provider reviewed before signing. MIKALA: [...] Use:. Never (more content not included)... Normal [facility] Comment on above: Result Comment: Elec tronically Signed By: Berenice Joyner\.br\Date and Time Signed: 06/14/22 14:24 EDT\.br\Electronically Co-Signed By: Jamie BILLS MD\.br\Date and Time Co-Signed: 06/16/22 14:25 EDT Lab Reportson 06-13-2022 Lab Reports [id number]:12 7 Normal [facility] LIPID PROFILEon 06-12-2022 CHOL-HDL RATIO NORM SEE BELOW Normal [facility] Comment on above: Result Comment: 3.3 - 4.4 LOW RISK 4.4 - 7.1 AVERAGE RISK 7.1 - 11.0 MODERATE RISK >11.0 HIGH RISK Performed By: #### L IPID, BMP #### [facility] [address] [address] [address] Moreno Amato Cholesterol [Mass/Vol] 178 mg/dL Normal <=200 Th [facility] Comment on above: Performed By: #### L IPID, BMP #### [facility] [address] [address] [address] Moreno Amato Cholesterol in HDL [Mass/Vol] 39 mg/dL Critically low 40-60 [facility] Comment on above: Performed By: #### L IPID, BMP #### [facility] [address] [address] [address] Moreno Amato Cholesterol in LDL [Mass/Vol] 92.0 mg/dL Normal [facility] Comment on above: Performed By: #### L IPID, BMP #### [facility] [address] [address] [address] Moreno Amato Cholesterol.total/Chol esterol in HDL [Mass ratio] 4.6 {ratio} Normal [facility] Comment on above: Performed By: #### L IPID, BMP #### [facility] [address] [address] [address] Moreno Amato HDL NORMAL > or = 60 mg/dl - LO W CARDIOVASCULAR RISK <40 mg/dl - HIGH CARDIOVASCULAR RISK Normal [facility] Comment on above: Performed By: #### L IPID, BMP #### [facility] [address] [address] [address] Moreno Amato LDL CALC NORMAL SEE BELOW Normal [facility] Comment on above: Result Comment: <100 mg/dl OPTIMAL 100 - 129 mg/dl NEAR OR ABOVE OPTIMAL 130 - 159 mg/dl BORDERLINE HIGH 160 - 189 mg/dl HIGH >190 mg/dl VERY HIGH Performed By: #### L IPID, BMP #### [facility] [address] [address] [address] Moreno Amato Triglyceride [Mass/Vol] 235 mg/dL Critically high <=150 [facility] Comment on above: Performed By: #### L IPID, BMP #### [facility] [address] [address] [address] Moreno Amato VLDL CALC 47.0 mg/dL Normal [facility] Comment on above: Performed By: #### L IPID, BMP #### [facility] [address] [address] [address] Moreno Amato PROF CHEM 8 (BAS METB)on Anion gap [Moles/Vol] 10.7 mmol/L Normal [facility] Comment on above: Performed By: #### L IPID, BMP #### [facility] [address] [address] [address] Moreno Amato Calcium [Mass/Vol] 9.6 mg/dL Normal 8.5-10.1 [facility] Comment on above: Performed By: #### L IPID, BMP #### [facility] [address] [address] [address] Moreno Amato Chloride [Moles/Vol] 104 mmol/L Normal 98-107 [facility] Comment on above: Performed By: #### L IPID, BMP #### [facility] [address] [place] [address] Dr. Moreno Amato CO2 [Moles/Vol] 31.6 mmol/L Normal 21.0-32.0 [facility] Comment on above: Performed By: #### L IPID, BMP #### [facility] [address] [address] [address] Moreno Amato Creatinine [Mass/Vol] 1.58 mg/dL Critically high 0.55-1.02 [facility] Comment on above: Performed By: #### L IPID, BMP #### [facility] [address] [address] [address] Moreno Amato EGFR-AF [place] 40 mL/min/1.73m2 Critically low >=60 [facility] Comment on above: Performed By: #### L IPID, BMP #### [facility] [address] [address] [address] Moreno Amato EGFR-NON AF [place] 33 mL/min/1.73m2 Critically low >=60 [facility] Comment on above: Performed By: #### L IPID, BMP #### [facility] [address] [address] [address] Moreno Amato Glucose [Mass/Vol] 79 mg/dL Normal 74-106 [facility] Comment on above: Performed By: #### L IPID, BMP #### [facility] [address] [place] [address] Dr. Moreno Amato Potassium [Moles/Vol] 4.3 mmol/L Normal 3.5-5.1 [facility] Comment on above: Performed By: #### L IPID, BMP #### [facility] [address] [place] [address] Dr. Moreno Amato Sodium [Moles/Vol] 142 mmol/L Normal 136-145 [facility] Comment on above: Performed By: #### L IPID, BMP #### [facility] [address] [place] [address] Dr. Moreno Amato Urea nitrogen [Mass/Vol] 21.0 mg/dL Critically high 7.0-18.0 [facility] Comment on above: Performed By: #### L IPID, BMP #### [facility] [address] [place] [address] Dr. Moreno Amato Urea nitrogen/Creatinine [Mass ratio] 13.3 mg/mg Normal [facility] Comment on above: Performed By: #### L IPID, BMP #### [facility] [address] [place] [address] Dr. Moreno Amato URINE T PROTEIN CREAT RATIOo n 06-12-2022 Protein (U) [Mass/Vol] 8.8 mg/dL Normal <=12.0 [facility] Comment on above: Performed By: #### A MY, CMP, LIPA #### [facility] [address] [place] [address] Dr. Moreno Amato UR PROT CREAT RAT 0.12 Normal [facility] Comment on above: Performed By: #### A MY, CMP, LIPA #### [facility] [address] [place] [address] Dr. Moreno Amato URINE CREAT 70.82 mg/dL Normal 20.00-300. 00 [facility] Comment on above: Performed By: #### A MY, CMP, LIPA #### [facility] [address] [place] [address] Dr. Moreno Amato Patient Educationon 06-07-19 Patient [...] health care provider. General instructions ? Take knqq-kkm-lnouflu and prescription medicines only as told by [...] monitor yo (more content not included)... Normal [facility] Urology Office/Clinic Noteon 06-06-2022 Urology Office/Clinic Note [...] in 1 week(s) for session #4 Ordered: 72643 EMG anal/urethral sphincter no needle 05219 Biofeedback training, perineal muscles, anorectal 29427 Anorectal Manometry 23039 ELECTRICAL STIMULATION 78347 Urnls Dip Stick Auto w/o Microscopy POC 51043 Follow-up No qualifying data available 1 WEEK [...] Protein Urine Dipstick: Negative (06/06/22 10:58:00) Specific [place] Urine Dipstick: 1.015 (06/06/22 10:58:00) Urine Appearance Urine Dipstick: Clear (06/06/22 10:58:00) Urine Color Urine Dipstick: Yellow (06/06/22 10:58:00) Urobilinogen Urine Dipstick: Normal 0.2-1 EU/dl (06/06/22 10:58:00) pH Urine Dipstick: 5.5 (06/06/22 10:58:00) Normal [facility] Comment on above: Result Comment: Elec tronically Signed By: TRUDY ADRIAN PA-C\Sashabr\Date and Time Signed: 04/19/23 11:24 EDT HEMOGLOBINon 04-30-2022 Hemoglobin (Bld) [Mass/Vol] 15.3 g/dL Normal 12.0-16.0 [facility] Comment on above: Performed By: #### A MY, CMP, LIPA #### [facility] [address] [address] [address] Moreno Amato LIPID PROFILEon 03-27-2022 CHOL-HDL RATIO NORM SEE BELOW Normal [facility] Comment on above: Result Comment: 3.3 - 4.4 LOW RISK 4.4 - 7.1 AVERAGE RISK 7.1 - 11.0 MODERATE RISK >11.0 HIGH RISK Performed By: #### A MY, CMP, LIPA #### [facility] [address] [address] [address] Moreno Amato Cholesterol [Mass/Vol] 217 mg/dL Critically high <=200 [facility] Comment on above: Performed By: #### A MY, CMP, LIPA #### [facility] [address] [address] [address] Moreno Amato Cholesterol in HDL [Mass/Vol] 42 mg/dL Normal 40-60 [facility] Comment on above: Performed By: #### A MY, CMP, LIPA #### [facility] [address] [address] [address] Moreno Amato Cholesterol in LDL [Mass/Vol] 121.6 mg/dL Normal [facility] Comment on above: Performed By: #### A MY, CMP, LIPA #### [facility] [address] [address] [address] Moreno Amato Cholesterol.total/Chol esterol in HDL [Mass ratio] 5.2 {ratio} Normal [facility] Comment on above: Performed By: #### A MY, CMP, LIPA #### [facility] [address] [place] [address] Dr. Moreno Amato HDL NORMAL > or = 60 mg/dl - LO W CARDIOVASCULAR RISK <40 mg/dl - HIGH CARDIOVASCULAR RISK Normal [facility] Comment on above: Performed By: #### A MY, CMP, LIPA #### [facility] [address] [address] [address] Moreno Amato LDL CALC NORMAL SEE BELOW Normal [facility] Comment on above: Result Comment: <100 mg/dl OPTIMAL 100 - 129 mg/dl NEAR OR ABOVE OPTIMAL 130 - 159 mg/dl BORDERLINE HIGH 160 - 189 mg/dl HIGH >190 mg/dl VERY HIGH Performed By: #### A MY, CMP, LIPA #### [facility] [address] [address] [address] Moreno Amato Triglyceride [Mass/Vol] 267 mg/dL Critically high <=150 [facility] Comment on above: Performed By: #### A MY, CMP, LIPA #### [facility] [address] [address] [address] Moreno Amato VLDL CALC 53.4 mg/dL Normal [facility] Comment on above: Performed By: #### A MY, CMP, LIPA #### [facility] [address] [place] [address] Dr. Moreno Amato PROF CHEM 8 (BAS METB)on Anion gap [Moles/Vol] 11.1 mmol/L Normal [facility] Comment on above: Performed By: #### A MY, CMP, LIPA #### [facility] [address] [address] [address] Moreno Amato Calcium [Mass/Vol] 9.2 mg/dL Normal 8.5-10.1 [facility] Comment on above: Performed By: #### A MY, CMP, LIPA #### [facility] [address] [address] [address] Moreno Amato Chloride [Moles/Vol] 104 mmol/L Normal 98-107 [facility] Comment on above: Performed By: #### A MY, CMP, LIPA #### [facility] [facility] [address] [address] [address] Moreno Amato CO2 [Moles/Vol] 27.4 mmol/L Normal 21.0-32.0 [facility] Comment on above: Performed By: #### A MY, CMP, LIPA #### [facility] [address] [address] [address] Moreno Amato Creatinine [Mass/Vol] 1.30 mg/dL Critically high 0.55-1.02 [facility] Comment on above: Performed By: #### A MY, CMP, LIPA #### [facility] [address] [address] [address] Moreno Amato EGFR-AF [place] 51 mL/min/1.73m2 Critically low >=60 [facility] Comment on above: Performed By: #### A MY, CMP, LIPA #### [facility] [address] [address] [address] Moreno Amato EGFR-NON AF [place] 42 mL/min/1.73m2 Critically low >=60 [facility] Comment on above: Performed By: #### A MY, CMP, LIPA #### [facility] [address] [address] [address] Moreno Amato Glucose [Mass/Vol] 102 mg/dL Normal 74-106 [facility] Comment on above: Performed By: #### A MY, CMP, LIPA #### [facility] [address] [address] [address] Moreno Amato Potassium [Moles/Vol] 4.5 mmol/L Normal 3.5-5.1 [facility] Comment on above: Performed By: #### A MY, CMP, LIPA #### [facility] [address] [place] [address] Dr. Moreno Amato Sodium [Moles/Vol] 138 mmol/L Normal 136-145 [facility] Comment on above: Performed By: #### A MY, CMP, LIPA #### [facility] [address] [address] [address] Moreno Amato Urea nitrogen [Mass/Vol] 23.0 mg/dL Critically high 7.0-18.0 [facility] Comment on above: Performed By: #### A MY, CMP, LIPA #### [facility] [address] [address] [address] Moreno Amato Urea nitrogen/Creatinine [Mass ratio] 17.7 mg/mg Normal [facility] Comment on above: Performed By: #### A MY, CMP, LIPA #### [facility] [address] [address] [address] Moreno Johnson 03-27-2022 AST [Catalytic activity/Vol] 24 U/L Normal 15-37 [facility] Comment on above: Performed By: #### A MY, CMP, LIPA #### [facility] [address] [address] [address] Moreno Amato SGPTon 03-27-2022 ALT [Catalytic activity/Vol] 20 U/L Normal 14-59 [facility] Comment on above: Performed By: #### A MY, CMP, LIPA #### [facility] [address] [address] [address] Moreno Amato COVID/FLU RT-PCRon 3 SARS-CoV-2 (COVID-19) RNA ELISA+probe Ql (Unsp spec) Negative [employer] Other COVID/FLU RT-PCR Negative [facility] [employer] Other Quick Strepon 03-19-2022 S. pyogenes Org specific cx Ql (Throat) Negative [employer] Other Quick Strep [employer] Other Tobacco Screening.on 023 Adult depression screening assessment No [facility] [address] DO Work Phone: Fall risk assessment c) Not medically indicated [facility] DO Work Phone: Tobacco use status CPHS b) No [facility] DO Work Phone: PAP ACOG PANEL 2: 30 to 65on 03-02-2022 . . Normal [facility] Comment on above: Result Comment: Perf ormed at: WB Performed By: #### A MY, CMP, LIPA #### [facility] [address] [address] [address] Moreno Amato Age Gdln ACOG Testing 30-65 Normal [facility] Comment on above: Performed By: #### A MY, CMP, LIPA #### [facility] [address] [address] [address] Moreno Amato DIAGNOSIS: Comment Normal [facility] Comment on above: Result Comment: NEGA TIVE FOR INTRAEPITHELIAL LESION OR MALIGNANCY. Performed at: WB Performed By: #### A MY, CMP, LIPA #### [facility] [address] [address] [address] Moreno Amato HPV Aptima Negative Normal Negative [facility] Comment on above: Result Comment: This nucleic acid amplification test detects fourteen high-risk HPV types (16,18,31,33,35,39,45,51,52,56,58,59,66,68) without differentiation. Performed at: =G Performed By: #### A MY, CMP, LIPA #### [facility] [address] [address] [address] Moreno Amato HPV Genotype Reflex Comment Normal [facility] Comment on above: Result Comment: Crit eria not met, HPV Genotype not performed. Performed at: WB Performed By: #### A MY, CMP, LIPA #### [facility] [address] [address] [address] Moreno Amato Methodology: Comment Normal [facility] Comment on above: Result Comment: This liquid based ThinPrep(R) pap test was screened with the use of an image guided system. Performed at: WB Performed By: #### A MY, CMP, LIPA #### [facility] [address] [address] [address] Moreno Amato Note: Comment Normal [facility] Comment on above: Result Comment: The [...] By: #### A MY, CMP, LIPA #### [facility] [address] [address] [address] Moreno Amato Performed by: Comment Normal [facility] Comment on above: Result Comment: Maria Luisa Chou, Site Interpreter (ASCP) Performed at: WB Performed By: #### A MY, CMP, LIPA #### [facility] [address] [place], [place] [address] Dr. Moreno Amato Specimen adequacy: Comment Normal [facility] Comment on above: Result Comment: Sati sfactory for evaluation. Endocervical and/or squamous metaplastic cells (endocervical component) are present. Performed at: WB Performed By: #### A MY, CMP, LIPA #### [facility] [address] [place], [place] [address] Dr. Moreno Amato XR CHEST 2 Von [...] by: AMY ROSS Date: 2022-02-19 22:[address] [facility] CARDIAC STRESS/REST INJE CTIONon 01-23-2022 [facility] CARDIAC STRESS/REST INJECTION Patient Name: DEYSI HERNANDEZ STUDY: MYOCARDIAL PERFUSION STRESS TEST WITH LEXISCAN Performing facility: [facility], [address] [place] [address], [address], [place] [address] [facility] Provider: Carlene Beal MD, FACC PCP: Dr. Mariann Thompson Supervising provider: Autumn Guidry RN, LEAD RECREATION ASSISTANT INDICATION: Chest discomfort Elevated troponin Hyperlipidemia HISTORY: Gender: F; Age: 61 y/o ; Height: 0 cm; Weight: 71.2611971 kg. High Cholesterol; HTN; Chest Pain; Quit smoking <1 year ago. COMPARISON: No comparison. ACCESSION NUMBER(S): [id number]; [id number]; [id number] ORDERING CLINICIAN: MARQUEZ BEAL TECHNIQUE: ONE DAY [...] Electronically signed by: WAQAR MARTINEZ MD Normal [facility] No Panel Informationon 01-23 Normal [facility] 600 DO Work Phone: Tobacco Screening.on 022 Fall risk assessment a) No falls within the last year [facility] 600 DO Work Phone: Tobacco use status CPHS b) No [facility] 600 DO Work Phone: MG MAMM SCREEN 3D NIRMALA CADon 10-30-2021 MG MAMM SCREEN 3D NIRMALA CAD Patient: DEYSI HERNANDEZ Exam Date: 10/30/2021 : 1960 Gender:F Ordering : SHAIKH Ford THOMPSON . Admission #: [id number] Family : Order #: [id number] CLICK HERE TO VIEW EXAM RADIOLOGY REPORT PROCEDURE: MAMMOGRAM SCREENING 3D BILATERAL CAD COMPARISON: MG MAMM NIRMALA SCRN W CAD DIG, 12/05/2012. INDICATIONS: Screening mammography Calculator Name NCI Breast Cancer Risk Assessment Tool 5 Year Breast Cancer Risk 1.00% Lifetime Breast Cancer Risk 5.50% Personal Breast Cancer No Personal Ovarian Cancer No Treatments None Family Cancers None LOCATION: [facility] BREAST COMPOSITION: Scattered areas fibroglandular density. [...] LUMP SHOULD BE BIOPSIED. Dictated by: Christiano Wade M.D. on 10/31/2021 at 08:50 Approved by: Christiano Wade M.D. on 10/31/2021 at 08:52 Normal [facility] Cardiac Stress Teston 2021 Cardiac Stress Test [address], [address] [place] [address] Exercise Stress Test Patient Name: DEYSI HERNANDEZ Ordering Physician: [id number] Beal MD Study Date: 10/17/2021 Reading Physician: [id number] Newman MD, [facility] MRN/PID: [id number] Supervising Physician: [id number] Jaycob Newman MD, [facility] Accession/Order#: [id number] Referring Physician: Cyn BEAL Date of : 1960 PCP: Mariann THOMPSON Gender: M Fellow: Height: 162.56 cm Nurse: Jackie Shen RN Weight: 68.95 kg Chemical Laboratory Scientist: KYLE BSA: 1.74 m2 Technologist: BMI: 26.09 kg/m2 Additional Staff: Age: 61 years cc report to: Patient Location: cc report to: [id number] Beal MD Study Type: Cardiac Stress Test Diagnosis/ICD: R07.89-Other chest pain Indication: Chest Pain Atypical Procedure/CPT: Stress Test Interpretation-[id number]; Stress Test Supervision-[id number] Falls Risk: Low: Patient has low risk [...] The adequate level of stress was achieved. [id number] Jaycob Newman MD, FACC Electronically signed on 10/23/2021 at 12:29:13 PM Final Normal [facility] Cardiac Stress Test Please click on the link to view the study images [facility] Work Phone: Cardiac Stress Test [facility] [place] [facility] [address] DO Work Phone: Creatinine and Glomerular fi ltration rate.predicted panel (S/P/Bld)Ordered By: Marquez Beal on 09-18-2021 Creatinine [Mass/Vol] 1.10 mg/dL 0.44-1.03 [facility] Estimated glomerular filtrat ion rate (GFR) non- AmericanOrdered By: Marquez Beal on 09-18-2021 GFR/1.73 sq M.predicted among non-blacks MDRD (S/P/Bld) [Vol rate/Area] 51 mL/Min [facility] No Panel InformationOrdered By: Marquez Beal on 09-18-2021 Estimated GFR () > 60 mL/Min [facility] Comment on above: GFR estimated refere nce range: According to KDOQI guidelines, <60 ml/min/1.73m2 is sufficient to diagnose a patient with chronic kidney disease. Pharmacy Creatinine Clearance (Chem N/A [facility] No Panel Informationon 09-18 9.8\S\9.8 Normal 8.2-10.2 [facility] 250 DO Work Phone: Comment on above: PERFORMED BY:[facility] [place], [place] [id number] MEDICAL DIRECTORJERAMY CALDWELL M.D. 25.1\S\25.1 Normal 22.0-30.0 [facility] DO Work Phone: 100\S\100 Normal 95-114 [facility] DO Work Phone: 3.9\S\3.9 Normal 3.5-5.1 [facility] DO Work Phone: 138\S\138 Normal 136-146 [facility] DO Work Phone: > 60 Normal [facility] Work Phone: Comment on above: GFR estimated refere nce range: According to KDOQI guidelines, <60 ml/min/1.73m2 is sufficient to diagnose a patient with chronic kidney disease. 51\S\51 Normal [facility] 250 DO Work Phone: 1.10\S\1.10 above high threshold 0.44-1.03 [facility] Work Phone: 15\S\15 Normal 9-23 [facility] Work Phone: 95\S\95 Normal 70-100 [facility] Work Phone: Comment on above: Random Glucose Refer ence Range is dependent on time and content of last meal. Glucose of more than 200 mg/dL in a nonstressed, ambulatory subject supports the diagnosis of Diabetes Mellitus. ADA recommended reference range Serum or plasma calcium teagan urement (mass/volume)Ordered By: Marquez Beal on 09-18-2021 Calcium [Mass/Vol] 9.8 mg/dL 8.2-10.[address] [facility] Serum or plasma chloride sophia surement (moles/volume)Ordered By: Marquez Beal on 09-18-2021 Chloride [Moles/Vol] 100 mmol/L 95-114 [facility] Serum or plasma glucose teagan urement (mass/volume)Ordered By: Marquez Beal on 09-18-2021 Glucose [Mass/Vol] 95 mg/dL 70-[address] [facility] Comment on above: ADA recommended refe rence range Random Glucose Reference Range is dependent on time and content of last meal. Glucose of more than 200 mg/dL in a nonstressed, ambulatory subject supports the diagnosis of Diabetes Mellitus. Serum or plasma potassium me asurement (moles/volume)Ordered By: Marquez Beal on 09-18-2021 Potassium [Moles/Vol] 3.9 mmol/L 3.5-5.1 [facility] Serum or plasma sodium measu rement (moles/volume)Ordered By: Marquez eBal on 09-18-2021 Sodium [Moles/Vol] 138 mmol/L 136-[address] [facility] Serum or plasma total carbon dioxide measurement (moles/volume)Ordered By: Marquez Beal on 09-18-2021 CO2 [Moles/Vol] 25.1 mmol/L 22.0-30.0 [facility] Serum or plasma urea nitroge n measurement (mass/volume)Ordered By: Marquez Beal on 09-18-2021 Urea nitrogen [Mass/Vol] 15 mg/dL 9-23 [facility] Tobacco Screening.on 022 Adult depression screening assessment No [facility] 250 DO Work Phone: Fall risk assessment a) No falls within the last year [facility] 250 DO Work Phone: Tobacco use status CPHS a) Yes [facility] 250 DO Work Phone: Tobacco Screening. Yes [facility] 250 DO Work Phone: Bacterial blood cultureOrder ed By: Bong Bansal on 08-19-2021 Bacteria identified Cx Nom (Bld) NO GROWTH 5 DAYS [facility] Basophils Auto (Bld) [#/Vol] Ordered By: Alaina Arce on 08-17-2021 Basophils (Bld) [#/Vol] 0.1 10*3/uL 0.0-0.2 [facility] Basophils/100 WBC Auto (Bld) Ordered By: Alaina Arce on 08-17-2021 Basophils/100 WBC (Bld) 0.7 % . [facility] Blood hemoglobin measurement (mass/volume)Ordered By: Alaina Arce on 08-17-2021 Hemoglobin (Bld) [Mass/Vol] 15.0 g/dL 11.8-15.4 [facility] Blood leukocytes automated c ount (number/volume)Ordered By: Alaina Arce on 08-17-2021 WBC (Bld) [#/Vol] 10.0 10*3/uL 4.5-11.0 [facility] Creatinine and Glomerular fi ltration rate.predicted panel (S/P/Bld)Ordered By: Alaina Arce on 08-17-2021 Creatinine [Mass/Vol] 1.27 mg/dL 0.44-1.03 [facility] Eosinophils Auto (Bld) [#/Vo l]Ordered By: Alaina Arce on 08-17-2021 Eosinophils (Bld) [#/Vol] 0.2 10*3/uL 0.0-0.45 [facility] Eosinophils/100 WBC Auto (Bl d)Ordered By: Alaina Arce on 08-17-2021 Eosinophils/100 WBC (Bld) 1.8 % . [facility] Erythrocyte distribution wid th Auto (RBC) [Ratio]Ordered By: Alaina Arce on 08-17-2021 Erythrocyte distribution width (RBC) [Ratio] 12.7 % 11.9-15.3 [facility] Estimated glomerular filtrat ion rate (GFR) non- AmericanOrdered By: Alaina Arce on 08-17-2021 GFR/1.73 sq M.predicted among non-blacks MDRD (S/P/Bld) [Vol rate/Area] 43 mL/Min [facility] Hematocrit Auto (Bld) [Volum e fraction]Ordered By: Alaina Arce on 08-17-2021 Hematocrit (Bld) [Volume fraction] 42.6 % 34.0-46.4 [facility] Laboratory - Hematology and Cell countsOrdered By: Alaina Arce on 08-17-2021 Nucleated RBC/100 WBC (Bld) [Ratio] 0.0 % 0-0.5 [facility] Lymphocytes Auto (Bld) [#/Vo l]Ordered By: Alaina Arce on 08-17-2021 Lymphocytes (Bld) [#/Vol] 2.4 10*3/uL 1.00-4.8 [facility] Lymphocytes/100 WBC Auto (Bl d)Ordered By: Alaina Arce on 08-17-2021 Lymphocytes/100 WBC (Bld) 23.7 % . [facility] MCH Auto (RBC) [Entitic mass ]Ordered By: Alaina Arce on 08-17-2021 MCH (RBC) [Entitic mass] 31.0 pg 24.7-34.3 [facility] MCHC Auto (RBC) [Mass/Vol]Or dered By: Alaina Arce on 08-17-2021 MCHC (RBC) [Mass/Vol] 35.3 g/dL 32.0-35.0 [facility] MCV Auto (RBC) [Entitic vol] Ordered By: Alaina Arce on 08-17-2021 MCV (RBC) [Entitic vol] 87.8 fL 80-100 [facility] Monocytes Auto (Bld) [#/Vol] Ordered By: Alaina Arce on 08-17-2021 Monocytes (Bld) [#/Vol] 1.0 10*3/uL 0.0-0.8 [facility] Monocytes/100 WBC Auto (Bld) Ordered By: Alaina Arce on 08-17-2021 Monocytes/100 WBC (Bld) 10.2 % . [facility] Neutrophils Auto (Bld) [#/Vo l]Ordered By: Alaina Arce on 08-17-2021 Neutrophils (Bld) [#/Vol] 6.3 10*3/uL 1.8-7.7 [facility] Neutrophils/100 WBC Auto (Bl d)Ordered By: Alaina Arce on 08-17-2021 Neutrophils/100 WBC (Bld) 63.6 % . [facility] No Panel InformationOrdered By: Alaina Arce on 08-17-2021 Estimated GFR () 52 mL/Min [facility] Comment on above: GFR estimated refere nce range: According to KDOQI guidelines, <60 ml/min/1.73m2 is sufficient to diagnose a patient with chronic kidney disease. Pharmacy Creatinine Clearance (Chem 47.54 [facility] Platelet mean volume Auto (B ld) [Entitic vol]Ordered By: Alaina Arce on 08-17-2021 Platelet mean volume (Bld) [Entitic vol] 8.5 fL 6.3-10.7 [facility] Platelets Auto (Bld) [#/Vol] Ordered By: Alaina Arce on 08-17-2021 Platelets (Bld) [#/Vol] 241 10*3/uL 150-450 [facility] RBC Auto (Bld) [#/Vol]Ordere d By: Alaina Arce on 08-17-2021 RBC (Bld) [#/Vol] 4.85 10*6/uL 3.60-5.00 [facility] Serum or plasma calcium teagan urement (mass/volume)Ordered By: Alaina Arce on 08-17-2021 Calcium [Mass/Vol] 8.9 mg/dL 8.2-10.[address] [facility] Serum or plasma chloride sophia surement (moles/volume)Ordered By: Alaina Arce on 08-17-2021 Chloride [Moles/Vol] 101 mmol/L 95-114 [facility] Serum or plasma glucose teagan urement (mass/volume)Ordered By: Alaina Arce on 08-17-2021 Glucose [Mass/Vol] 132 mg/dL 70-[address] [facility] Comment on above: ADA recommended refe rence range Random Glucose Reference Range is dependent on time and content of last meal. Glucose of more than 200 mg/dL in a nonstressed, ambulatory subject supports the diagnosis of Diabetes Mellitus. Serum or plasma potassium me asurement (moles/volume)Ordered By: Alaina Arce on 08-17-2021 Potassium [Moles/Vol] 2.9 mmol/L 3.5-5.1 [facility] Comment on above: Results called at 0721 on 08/17/21 Serum or plasma sodium measu rement (moles/volume)Ordered By: Alaina Arce on 08-17-2021 Sodium [Moles/Vol] 137 mmol/L 136-[address] [facility] Serum or plasma total carbon dioxide measurement (moles/volume)Ordered By: Alaina Arce on 08-17-2021 CO2 [Moles/Vol] 25.3 mmol/L 22.0-30.0 [facility] Serum or plasma urea nitroge n measurement (mass/volume)Ordered By: Alaina Arce on 08-17-2021 Urea nitrogen [Mass/Vol] 17 mg/dL 9-23 [facility] Albumin [Mass/volume] in Ser um or PlasmaOrdered By: Alaina Arce on 08-16-2021 Albumin [Mass/Vol] 3.1 g/dL 3.2-5.[address] [facility] Globulin Calc (S) [Mass/Vol] Ordered By: Alaina Arce on 08-16-2021 Globulin (S) [Mass/Vol] 3.0 g/dL [facility] Protein [Mass/volume] in Ser um or PlasmaOrdered By: Alaina Arce on 08-16-2021 Protein [Mass/Vol] 6.1 g/dL 6.1-7.[address] [facility] Serum or plasma alanine spencer otransferase measurement without P-5'-P (enzymatic activiOrdered By: Alaina Arce on 08-16-2021 ALT No additional P-5'-P [Catalytic activity/Vol] 57 U/L 10-60 [facility] Serum or plasma albumin/glob ulin mass ratioOrdered By: Alaina Arce on 08-16-2021 Albumin/Globulin [Mass ratio] 1.0 {ratio} [facility] Serum or plasma alkaline calvin sphatase measurement (enzymatic activity/volume)Ordered By: Alaina Arce on 08-16-2021 ALP [Catalytic activity/Vol] 76 U/L 32-92 [facility] Serum or plasma aspartate am inotransferase measurement (enzymatic activity/volume)Ordered By: Alaina Arce on 08-16-2021 AST [Catalytic activity/Vol] 47 U/L 10-42 [facility] Serum or plasma total biliru bin measurement (mass/volume)Ordered By: Alaina Arce on 08-16-2021 Bilirubin [Mass/Vol] 1.5 mg/dL 0.3-1.2 [facility] Comment on above: Samples from patient s who have taken Naproxen have shown spurious elevation in Total Bilirubin levels. A metabolite of Naproxen, O-desmethylnaproxen, has been shown to interfere with the Alhaji-Joseph method for measuring Total Bilirubin. Amphetamine Screen Ql (U)Ord ered By: Alaina Arce on 08-15-2021 Amphetamines Ql (U) Negative Negative [facility] Antithrombin measurement (un its/volume) in platelet poor plasma by chromogenic methodOrdered By: Janet Hamm on 08-15-2021 Antithrombin Chromogenic method Qn (PPP) 113 % 75-135 [facility] Comment on above: Direct Xa inhibitor anticoagulants such as rivaroxaban, apixaban and edoxaban will lead to spuriously elevated antithrombin activity levels possibly masking a deficiency. Barbiturates [Presence] in U rineOrdered By: Alaina Arce on 08-15-2021 Barbiturates Ql (U) Negative Negative [facility] Benzodiazepines [Presence] i n UrineOrdered By: Alaina Arce on 08-15-2021 Benzodiazepines Ql (U) Negative Negative [facility] Beta 2 glycoprotein 1 IgG Ab [Units/volume] in SerumOrdered By: Janet Hamm on 08-15-2021 Beta 2 glycoprotein 1 IgG Qn (S) <9 0-20 [facility] Comment on above: Result Units: GPI Ig [...] glycoprotein 1 IgM Qn (S) <9 0-32 [facility] Comment on above: Result Units: GPI Ig [...] 08-15-2021 Cannabinoids Screen Ql (U) Negative Negative [facility] Comment on above: These are unconfirme d results and should not be used for legal purposes. Drug Cut-Off Concentration: AMPH 1000 ng/mL DRAKE 200 ng/mL UNIQUE 200 ng/mL COCM 300 ng/mL OP 300 ng/mL PCP 25 ng/mL THC 20 ng/mL Cardiolipin IgG Ab [Units/vo lume] in Serum by ImmunoassayOrdered By: Janet Hamm on 08-15-2021 Cardiolipin IgG IA Qn (S) <9 GPL U/mL 0-14 [facility] Comment on above: Negative: <15 Indeterminate: 15 - 20 Low-Med Positive: >20 - 80 High Positive: >80 Cardiolipin IgM Ab [Units/vo lume] in Serum by ImmunoassayOrdered By: Janet Hamm on 08-15-2021 Cardiolipin IgM IA Qn (S) 17 MPL U/mL 0-12 [facility] Comment on above: Negative: <13 Indeterminate: 13 - 20 Low-Med Positive: >20 - 80 High Positive: >80 Cholesterol [Mass/volume] in Serum or PlasmaOrdered By: Janet Hamm on 08-15-2021 Cholesterol [Mass/Vol] 259 mg/dL 140-200 [facility] Comment on above: Chol less than 200 m g/dl low risk Chol 201-239 mg/dl borderline risk Chol 240 mg/dl and greater high risk Cholesterol in LDL Calc [Mas s/Vol]Ordered By: Janet Hamm on 08-15-2021 Cholesterol in LDL [Mass/Vol] 176 mg/dL 0-100 [facility] Comment on above: LDL ATP III CLASSIFI CATION LDL less than 100 mg/dL Optimal LDL 100-129 mg/dL Near or above optimal LDL 130-159 mg/dL Borderline high LDL 160-189 mg/dL High LDL greater than 189 mg/dL Very high Cholesterol in VLDL Calc [Ma ss/Vol]Ordered By: Janet Hamm on 08-15-2021 Cholesterol in VLDL [Mass/Vol] 32 mg/dL [facility] Dilute Vinay's viper venom timeOrdered By: Janet Hamm on 08-15-2021 dRVVT Coag (PPP) [Time] 45.5 s 0.0-47.0 [facility] Free protein S measurementOr dered By: Janet Hamm on 08-15-2021 Protein S Free Ag IA Qn (PPP) 134 % 61-136 [facility] Functional protein C measure mentOrdered By: Janet Hamm on 08-15-2021 Protein C actual/normal Chromogenic method (PPP) [Rel catalytic activity/Vol] 158 % 73-180 [facility] Laboratory - Drug toxicology Ordered By: Alaina Arce on 08-15-2021 Opiates Ql (U) Negative Negative [facility] Lupus anticoagulant [Interpr etation] in Platelet poor plasmaOrdered By: Janet Hamm on 08-15-2021 Lupus anticoagulant (PPP) [Interp] Comment: . [facility] Comment on above: No lupus anticoagula nt was detected. No Panel InformationOrdered By: Janet Hamm on 08-15-2021 Activated Protein C Resist Confirm 2.6 ratio 2.2-3.5 [facility] Comment on above: The APCR result may be falsely increased (masking an abnormal, low APCR result) in patients on direct Xa inhibitor (e.g., rivaroxaban, apixaban, edoxaban) or a direct thrombin inhibitor (e.g., dabigatran) anticoagulant therapy due to assay interference by these drugs. Phencyclidine Screen Ql (U)O rdered By: Alaina Arce on 08-15-2021 Phencyclidine Ql (U) Negative Negative [facility] Plasminogen measurementOrder ed By: Janet Hamm on 08-15-2021 Plasminogen actual/normal Chromogenic method (PPP) [Rel catalytic activity/Vol] 119 % 70-150 [facility] Platelet poor plasma ratio o f lupus anticoagulant-sensitive activated partial thromboOrdered By: Janet Hamm on 08-15-2021 aPTT.lupus sensitive.excess phospholipid actual/normal Coag (PPP) [Relative time] 38.6 sec 0.0-47.6 [facility] Prothrombin gene [id number] mut ation detectionOrdered By: Janet Hamm on 08-15-2021 F2 gene targeted mutation analysis [employer] Nom (Bld/Tiss) See comment . [facility] Comment on above: Result: c.*97G>A - N [...] the F2 gene and a c.1601G>A (p. [id number]) variant in the F5 gene (commonly referred to as Factor V Leiden) have an approximately 20- fold increased risk for venous thromboembolism. Risks are likely to be even higher in more complex genotype combinations involving the F2 c.*97G>A variant and Factor V Leiden (PMID: 00959139). Additional risk factors include but are not [...] health care providers to discuss results at [phone] ([phone]). Test Details: Variant analyzed: c.*97G>A, previously referred to as [id number] Methods/Limitations: DNA analysis of the F2 gene [...] developed and its performance characteristics determined by [employer]. It has not been cleared or approved by the Food and Drug Administration. References: Taj S, Briana AK, Gilberto R, Bogdan WW, Yanick WOMACK; [employer] Professional Practice and Guidelines Committee. Addendum: [employer] consensus statement on factor V Leiden mutation testing. Zoë [employer]. 2020Apr 22. doi: 10.1038/z35270-809-33704-j. PMID: 06613358. Edgardo KRISHNA. Prothrombin Thrombophilia. 2005Sep 11 [Updated 2020Mar 24]. In: Rober MP, Thaddeus HH, Iman RA, et al., editors. Aliyah(R) [Internet]. [place] ([place]): [facility]; 3959-3510. Available from: https://www.ncbi.nlm.nih.gov/books/OOQ5217/ George S, Briana AK, Finn X, Grady B, Vidal EB, Siobhan P, Anny CS; [employer] Laboratory Analysis Consultant Committee. Venous thromboembolism laboratory testing (factor V Leiden and factor II c.*97G>A), 2018 update: a technical standard of the [employer] ([employer]MG). Zoë Med. 2018 Jan;20(12):5829-5470. doi: 10.1038/[id number]-w. Epub 2017Nov 22. PMID: 25843333. Evon Negron, PhD, FACMG Otis Guthrie, PhD, FACMG Rehan Goodson, PhD, FACMG Nick Bergeron, PhD, FACMG W Mona Pagan, PhD, FACMG Vee Mera, PhD, FACMG Gregoria Carrasco, PhD, FACMG Performed at: - [facility] [id number] Supervisor Model Making: Harshad Acosta PhD, Phone: [phone] Performed at: - [facility] [id number] Supervisor Model Making: Veronica Ring MD, Phone: [phone] Performed at: [facility] [address] [place], [place] [id number] Supervisor Model Making: Becky Cabezas [facility], Phone: [phone] Serum or plasma high density lipoprotein (HDL) cholesterol measurementOrdered By: Janet Hamm on 08-15-2021 Cholesterol in HDL [Mass/Vol] 50 mg/dL 35-85 [facility] Comment on above: HDL CHOL ATP-III CLA SSIFICATION Cardiovascular Risk HDL > or equal to 60 mg/dL LOW HDL < 40 mg/dL HIGH Serum or plasma homocysteine measurement (moles/volume)Ordered By: Janet Hamm on 08-15-2021 Homocysteine [Moles/Vol] 12.8 umol/L 0.0-14.5 [facility] Serum or plasma total choles terol/high density lipoprotein (HDL) cholesterol mass ratOrdered By: Janet Hamm on 08-15-2021 Cholesterol.total/Chol esterol in HDL [Mass ratio] 5.2 {ratio} <5.0 [facility] Triglyceride [Mass/volume] i n Serum or PlasmaOrdered By: Janet Hamm on 08-15-2021 Triglyceride [Mass/Vol] 164 mg/dL 35-149 [facility] Comment on above: TRIG ATP III CLASSIF ICATION TRIG less than 150 mg/dL Normal TRIG 150-199 mg/dL Borderline high TRIG 200-500 mg/dL High TRIG greater than 500 mg/dL Very high Standard traceable to the Center for Disease Conrtrol and Prevention (CDC) test method. Urine cocaine detectionOrder ed By: Alaina Arce on 08-15-2021 Cocaine Ql (U) Negative Negative [facility] Urine culture routineOrdered By: Alaina Arce on 08-15-2021 Bacteria identified Cx Nom (U) 2 Days [facility] aPTT.lupus sensitive (LA scr een)Ordered By: Janet Hamm on 08-15-2021 aPTT.lupus sensitive Coag (PPP) [Time] 35.2 sec 0.0-51.9 [facility] aPTT.lupus sensitive/aPTT.sheryl pus sensitive W excess phospholipid (screen to confirm raOrdered By: Janet Hamm on 08-15-2021 aPTT.lupus sensitive/aPTT.lupus sensitive W excess phospholipid Coag (PPP) [Ratio] 0.94 Ratio 0.00-1.34 [facility] Activated partial thrombopla stin time (aPTT) in platelet poor plasma by coagulation aOrdered By: Bong Bansal on 08-14-2021 aPTT Coag (PPP) [Time] 28.2 s 25.1-36.5 [facility] Bacterial blood cultureOrder ed By: Bong Bansal on 08-14-2021 Bacteria identified Cx Nom (Bld) NO GROWTH 5 DAYS [facility] Creatinine [Mass/volume] in UrineOrdered By: Alaina Arce on 08-14-2021 Creatinine (U) [Mass/Vol] 74.6 mg/dL [facility] Comment on above: No reference range e stablished Glucose Glucometer (BldC) [M ass/Vol]Ordered By: Alaina Arce on 08-14-2021 Glucose [Mass/Vol] 102 mg/dL [facility] Comment on above: Random Glucose Refer ence Range is dependent on time and content of last meal. Glucose of more than 200 mg/dL in a nonstressed, ambulatory subject supports the diagnosis of Diabetes Mellitus. Glucose mean value [Mass/vol ume] in Blood Estimated from glycated hemoglobinOrdered By: Janet Hamm on 08-14-2021 Average glucose Estimated from glycated hemoglobin (Bld) [Mass/Vol] 126 mg/dL [facility] Hemoglobin A1c percentageOrd ered By: Janet Hamm on 08-14-2021 HbA1c (Bld) [Mass fraction] 6.0 % 4.3-5.6 [facility] Comment on above: Increased risk for d iabetes: 5.7 - 6.4 diabetes: >6.4 glycemic control for adults with diabetes: <7.0 Laboratory - Chemistry and C hemistry - challengeOrdered By: Alaina Arce on 08-14-2021 Magnesium [Mass/Vol] 2.3 mg/dL 1.6-2.6 [facility] Laboratory - CoagulationOrde red By: Bong Bansal on 08-14-2021 PT Coag (PPP) [Time] 11.8 s 9.0-12.9 [facility] Platelet poor plasma interna tional normalized ratio (INR) by coagulation assay (relatOrdered By: Bong Bansal on 08-14-2021 INR Coag (PPP) [Relative time] 1.1 {INR} [facility] Comment on above: INR Therapeutic Rang e [...] 08-14-2021 Protein (U) [Mass/Vol] 100 mg/dL 0-9 [facility] Renin activityOrdered By: Emma Arce on 08-14-2021 Renin (P) [Catalytic activity/Vol] 27.141 ng/mL/hr 0.167-5.38 0 [facility] Comment on above: This test was develo ped and its performance characteristics determined by [employer]. It has not been cleared or approved by the Food and Drug Administration. Performed at: [facility] [address] [id number] Supervisor Model Making: Veronica Ring MD, Phone: [phone] Serum or plasma aldosterone measurement (mass/volume)Ordered By: Alaina Arce on 08-14-2021 Aldosterone [Mass/Vol] 7.8 ng/dL 0.0-30.0 [facility] Comment on above: This test was develo ped and its performance characteristics determined by [employer]. It has not been cleared or approved by the Food and Drug Administration. Performed at: [facility] [address] [id number] Supervisor Model Making: Veronica Ring MD, Phone: [phone] Urine protein/creatinine rat ioOrdered By: Alaina Arce on 08-14-2021 Protein/Creatinine (U) [Ratio] 1340 mg/g{Cre} 0-200 [facility] Urine sodium measurement (mo les/volume)Ordered By: Alaina Arce on 08-14-2021 Sodium (U) [Moles/Vol] 54.0 mmol/L [facility] Comment on above: No reference range e stablished AMYLASEon 08-13-2021 Amylase [Catalytic activity/Vol] 80 U/L Normal 25-115 [facility] Comment on above: Performed By: #### A MY, CMP, LIPA #### [facility] [address] [place] [address] Dr. Moreno Amato Automated erythrocytes count in urine sediment (number/area)Ordered By: Alaina Arce on 08-13-2021 RBC Auto (Urine sed) [#/Area] 5-9 [HPF] 0-4 [facility] Automated leukocytes count i n urine sediment (number/area)Ordered By: Alaina Arce on 08-13-2021 WBC Auto (Urine sed) [#/Area] 20-49 [HPF] 0-4 [facility] Bilirubin Test strip Ql (U)O rdered By: Alaina Arce on 08-13-2021 Bilirubin Ql (U) Negative Negative [facility] CBC AUTO DIFFon 08-13-2021 BASO # 0.1 103/ul Normal 0.0-0.1 [facility] Comment on above: Performed By: #### C BC #### [facility] [address] [place] [address] Dr. Moreno Amato Basophils/100 WBC (Bld) 0.6 % Normal 0.2-2.0 [facility] Comment on above: Performed By: #### C BC #### [facility] [address] [place] [address] Dr. Moreno Amato EO # 0.1 103/ul Normal 0.0-0.7 [facility] Comment on above: Performed By: #### C BC #### [facility] [address] [place] [address] Dr. Moreno Amato Eosinophils/100 WBC (Bld) 0.6 % Critically low 0.9-7.0 [facility] Comment on above: Performed By: #### C BC #### [facility] [address] [place] [address] Dr. Moreno Amato Erythrocyte distribution width (RBC) [Ratio] 11.9 % Normal 11.0-15.0 [facility] Comment on above: Performed By: #### C BC #### [facility] [address] [address] [address] Moreno Amato Hematocrit (Bld) [Volume fraction] 51.0 % Critically high 36.0-48.0 [facility] Comment on above: Performed By: #### C BC #### [facility] [address] [place] [address] Dr. Moreno Amato Hemoglobin (Bld) [Mass/Vol] 18.2 g/dL Critically high 12.0-16.0 [facility] Comment on above: Performed By: #### C BC #### [facility] [address] [address] [address] Moreno Amato IG # 0.04 10e3/ul Critically high 0.00-0.03 [facility] Comment on above: Performed By: #### C BC #### [facility] [address] [place] [address] Dr. Moreno Amato IG % 0.3 % Normal 0.0-0.5 [facility] Comment on above: Performed By: #### C BC #### [facility] [address] [place] [address] Dr. Moreno Amato LYMPH # 2.2 103/ul Normal 1.2-3.8 [facility] Comment on above: Performed By: #### C BC #### [facility] [address] [place] [address] Dr. Moreno Amato Lymphocytes/100 WBC (Bld) 17.1 % Critically low 20.5-60.0 [facility] Comment on above: Performed By: #### C BC #### [facility] [address] [place] [address] Dr. Moreno Amato MANUAL DIFF REQ NO Normal [facility] Comment on above: Performed By: #### C BC #### [facility] [address] [place] [address] Dr. Moreno Amato MCH (RBC) [Entitic mass] 30.4 pg Normal 26.7-34.0 [facility] Comment on above: Performed By: #### C BC #### [facility] [address] [place] [address] Dr. Moreno Amato MCHC (RBC) [Mass/Vol] 35.7 g/dL Critically high 29.9-35.2 [facility] Comment on above: Performed By: #### C BC #### [facility] [address] [place] [address] Dr. Moreno Amato MCV (RBC) [Entitic vol] 85.1 fL Normal 81.0-99.0 [facility] Comment on above: Performed By: #### C BC #### [facility] [address] [place] [address] Dr. Moreno Amato MONO # 1.3 103/ul Critically high 0.3-0.8 [facility] Comment on above: Performed By: #### C BC #### [facility] [address] [place] [address] Dr. Moreno Amato Monocytes/100 WBC (Bld) 10.0 % Normal 1.7-12.0 [facility] Comment on above: Performed By: #### C BC #### [facility] [address] [place] [address] Dr. Moreno Amato NEUT # 9.3 103/ul Critically high 1.4-6.5 [facility] Comment on above: Performed By: #### C BC #### [facility] [address] [place] [address] Dr. Moreno Amato Neutrophils/100 WBC (Bld) 71.4 % Normal 43.0-75.0 [facility] Comment on above: Performed By: #### C BC #### [facility] [address] [place] [address] Dr. Moreno Amato Platelet mean volume (Bld) [Entitic vol] 9.8 fL Normal 9.5-13.5 [facility] Comment on above: Performed By: #### C BC #### [facility] [address] [place] [address] Dr. Moreno Amato PLT 242 103/ul Normal 150-450 [facility] Comment on above: Performed By: #### C BC #### [facility] [address] [place] [address] Dr. Moreno Amato RBC 5.99 106/ul Critically high 4.20-5.40 [facility] Comment on above: Performed By: #### C BC #### [facility] [address] [address] [address] Moreno Amato WBC 13.0 103/ul Critically high 4.0-11.0 [facility] Comment on above: Performed By: #### C BC #### [facility] [address] [id number] Moreno Amato [address] ABD/PELVIS WO CONon [...] Vinay MANN Date: 2021-08-13 03:36 Normal [facility] CT STROKE HEAD WOon 08-14-19 CT STROKE HEAD WO EXAM: CT STROKE [...] MAVIS ROSSI Date: 2021-08-13 07:39 Normal [facility] CULTURE URINEon 08-13-2021 CULTURE URINE Culture Observations : LIGHT GROWTH OF MIXED GENITAL ZOE. NO POTENTIAL PATHOGENS SEEN. Normal [facility] Comment on above: Performed By: #### A MY, CMP, LIPA #### [facility] [address] [address] [address] Moreno Amato Color Auto (U)Ordered By: Emma Arce on 08-13-2021 Color (U) Yellow [facility] Covid-19 PCR (CVDTBH)on 07-20 SARS-CoV-2 (COVID-19) RNA ELISA+probe Ql (Unsp spec) Not detected Normal NOT DETECTED [facility] Comment on above: Result Comment: When [...] for this test is supported by the [place] of Health and Human Service's declaration that [...] used). Performed By: #### C VDTB #### [facility] [address] [place] [address] Dr. Moreno Amato ER URINE PROFILEon 2 Bilirubin Ql (U) Negative Normal NEGATIVE [facility] Comment on above: Performed By: #### E ANNR, UMICRO #### [facility] [address] [place] [address] Dr. Moreno Amato Clarity (U) CLEAR Normal CLEAR [facility] Comment on above: Performed By: #### E DAYANNA, UMICRO #### [facility] [address] [place] [address] Dr. Moreno Amato Color (U) LT. YELLOW Normal YELLOW [facility] Comment on above: Performed By: #### E ANNR, UMICRO #### [facility] [address] [place] [address] Dr. Moreno Amato ERUAHD A micrscopic examina tion will be performed if indicated. Normal [facility] Comment on above: Performed By: #### Rupal ALAN, UMICRO #### [facility] [address] [place] [address] Dr. Moreno Amato Glucose Ql (U) Negative Normal NEGATIVE [facility] Comment on above: Performed By: #### E RUR, UMICRO #### [facility] [address] [place] [address] Dr. Moreno Amato Hemoglobin Ql (U) MODERATE Abnormal NEGATIVE [facility] Comment on above: Performed By: #### E RUR, UMICRO #### [facility] [address] [place] [address] Dr. Moreno Amato Ketones Ql (U) Negative Normal NEGATIVE [facility] Comment on above: Performed By: #### Rupal JUAREZR, UMICRO #### [facility] [address] [place] [address] Dr. Moreno Amato LEUKOCYTES SMALL Abnormal NEGATIVE [facility] Comment on above: Performed By: #### NAOMI FRANCISCO #### [facility] [address] [place] [address] Dr. Moreno Amato Nitrite Ql (U) Positive Abnormal NEGATIVE [facility] Comment on above: Performed By: #### SULAIMAN FRANCISCORO #### [facility] [address] [place] [address] Dr. Moreno Amato pH (U) 6.0 [pH] Normal 5-9 [facility] Comment on above: Performed By: #### NAOMI FRANCISCO #### [facility] [address] [place] [address] Dr. Moreno Amato SPEC GRAVITY 1.020 Normal 1.005-<=1. 025 [facility] Comment on above: Performed By: #### SULAIMAN FRANCISCORO #### [facility] [address] [place] [address] Dr. Moreno Amato UA PROTEIN >300 Abnormal NEGATIVE/ TRACE [facility] Comment on above: Performed By: #### SULAIMAN FRANCISCORO #### [facility] [address] [place] [address] Dr. Moreno Amato UR MICRO IND INDICATED Normal [facility] Comment on above: Performed By: #### SULAIMAN FRANCISCORO #### [facility] [address] [place] [address] Dr. Moreno Amato Urobilinogen Qn (U) 0.2 {[place]'U}/dL Normal 0.2 - 1. 0 [facility] Comment on above: Performed By: #### SULAIMAN FRANCISCORO #### [facility] [address] [place] [address] Dr. Moreno Amato Ketones Auto test strip (U) [Mass/Vol]Ordered By: Alaina Arce on 08-13-2021 Ketones (U) [Mass/Vol] Negative Negative [facility] LACTATE/LACTIC ACIDon 2021 Lactate [Moles/Vol] 1.1 mmol/L Normal 0.4-1.[address] [facility] Comment on above: Performed By: #### A MY, CMP, LIPA #### [facility] [address] [address] [address] Moreno Amato LIPASEon 08-13-2021 Lipase [Catalytic activity/Vol] 524.0 U/L Critically high 73.0-393.0 [facility] Comment on above: Performed By: #### A MY, CMP, LIPA #### [facility] [address] [address] [address] Moreno Amato Laboratory - Chemistry and C hemistry - challengeOrdered By: Alaina Arce on 08-13-2021 Lactate [Moles/Vol] 1.6 mmol/L 0.5-2.2 [facility] - UrinalysisOrder ed By: Alaina Arce on 08-13-2021 Hyaline casts LM Ql (Urine sed) 9-19 [LPF] 0-8 [facility] Nitrite Test strip Ql (U)Ord ered By: Alaina Arce on 08-13-2021 Nitrite Ql (U) Positive Negative [facility] POINT OF CARE GLUCOSEon 07-20 Glucose [Mass/Vol] 129 mg/dL Critically high 74-106 [facility] Comment on above: Performed By: #### A MY, CMP, LIPA #### [facility] [address] [address] [address] Moreno Amato PROF 14(COMP METB)on 022 Albumin [Mass/Vol] 3.4 g/dL Normal 3.4-5.0 [facility] Comment on above: Performed By: #### A MY, CMP, LIPA #### [facility] [address] [address] [address] Moreno Amato Albumin/Globulin [Mass ratio] 0.8 {ratio} Normal [facility] Comment on above: Performed By: #### A MY, CMP, LIPA #### [facility] [address] [address] [address] Moreno Amato ALP [Catalytic activity/Vol] 105 U/L Normal 46-116 [facility] Comment on above: Performed By: #### A MY, CMP, LIPA #### [facility] [address] [address] [address] Moreno Amato ALT [Catalytic activity/Vol] 22 U/L Normal 14-59 [facility] Comment on above: Performed By: #### A MY, CMP, LIPA #### [facility] [address] [address] [address] Moreno Amato Anion gap [Moles/Vol] 11.6 mmol/L Normal [facility] Comment on above: Performed By: #### A MY, CMP, LIPA #### [facility] [address] [place] [address] Dr. Moreno Amato AST [Catalytic activity/Vol] 22 U/L Normal 15-37 [facility] Comment on above: Performed By: #### A MY, CMP, LIPA #### [facility] [address] [place] [address] Dr. Moreno Amato Bilirubin [Mass/Vol] 0.7 mg/dL Normal 0.2-1.0 [facility] Comment on above: Performed By: #### A MY, CMP, LIPA #### [facility] [address] [place] [address] Dr. Moreno Amato Calcium [Mass/Vol] 9.6 mg/dL Normal 8.5-10.1 [facility] Comment on above: Performed By: #### A MY, CMP, LIPA #### [facility] [address] [place] [address] Dr. Moreno Amato Chloride [Moles/Vol] 97 mmol/L Critically low 98-107 [facility] Comment on above: Performed By: #### A MY, CMP, LIPA #### [facility] [address] [place] [address] Dr. Moreno Amato CO2 [Moles/Vol] 31.2 mmol/L Normal 21.0-32.0 [facility] Comment on above: Performed By: #### A MY, CMP, LIPA #### [facility] [address] [address] [address] Moreno Amato Creatinine [Mass/Vol] 1.64 mg/dL Critically high 0.55-1.02 [facility] Comment on above: Performed By: #### A MY, CMP, LIPA #### [facility] [address] [address] [address] Moreno Amato EGFR-AF [place] 39 mL/min/1.73m2 Critically low >=60 [facility] Comment on above: Performed By: #### A MY, CMP, LIPA #### [facility] [address] [address] [address] Moreno Amato EGFR-NON AF [place] 32 mL/min/1.73m2 Critically low >=60 [facility] Comment on above: Performed By: #### A MY, CMP, LIPA #### [facility] [address] [place] [address] Dr. Moreno Amato Globulin (S) [Mass/Vol] 4.1 g/dL Normal [facility] Comment on above: Performed By: #### A MY, CMP, LIPA #### [facility] [address] [address] [address] Moreno Amato Glucose [Mass/Vol] 110 mg/dL Critically high 74-106 [facility] Comment on above: Performed By: #### A MY, CMP, LIPA #### [facility] [address] [address] [address] Moreno Amato Potassium [Moles/Vol] 2.8 mmol/L Critically low 3.5-5.1 [facility] Comment on above: Performed By: #### A MY, CMP, LIPA #### [facility] [address] [address] [address] Moreno Amato Protein [Mass/Vol] 7.5 g/dL Normal 6.4-8.2 [facility] Comment on above: Performed By: #### A MY, CMP, LIPA #### [facility] [address] [address] [address] Moreno Amato Sodium [Moles/Vol] 137 mmol/L Normal 136-145 [facility] Comment on above: Performed By: #### A MY, CMP, LIPA #### [facility] [address] [address] [address] Moreno Amato Urea nitrogen [Mass/Vol] 26.0 mg/dL Critically high 7.0-18.0 [facility] Comment on above: Performed By: #### A MY, CMP, LIPA #### [facility] [address] [address] [address] Moreno Amato Urea nitrogen/Creatinine [Mass ratio] 15.9 mg/mg Normal [facility] Comment on above: Performed By: #### A MY, CMP, LIPA #### [facility] [address] [address] [address] Moreno Amato Protein Auto test strip (U) [Mass/Vol]Ordered By: Alaina Arce on 08-13-2021 Protein (U) [Mass/Vol] mg/dL Negative [facility] Specific gravity Auto test s trip (U) [Rel density]Ordered By: Alaina Arce on 08-13-2021 Specific gravity (U) [Rel density] 1.017 1.001-1.03 0 [facility] Squamous epithelial cells de tection in urine sediment by light microscopyOrdered By: Alaina Arce on 08-13-2021 Epithelial cells.squamous LM Ql (Urine sed) 3-4 [HPF] 0-2 [facility] TROPONIN, HIGH SENSITIVITYon 08-13-2021 HSTROP 91.0 pg/mL Critically high 4.0-51.3 [facility] Comment on above: Result Comment: CUT- OFF POINTS HAVE BEEN ESTABLISHED BASED ON THE FOURTH UNIVERSAL DEFINITIONS OF MYOCARDIAL INFARCTION. THE UPPER REFERENCE LIMIT (URL) OF TROPONIN, DEFINED THE 99TH PERCENTILE OF cTnI DISTRIBUTION IN A REFERENCE POPULATION, HAS BEEN CONFIRMED THE DECISION THRESHOLD FOR AR DIAGNOSIS. Performed By: #### A MY, CMP, LIPA #### [facility] [address] [address] [address] Moreno Amato HSTROP 109.0 pg/mL Critically high 4.0-51.3 [facility] Comment on above: Result Comment: CUT- OFF POINTS HAVE BEEN ESTABLISHED BASED ON THE FOURTH UNIVERSAL DEFINITIONS OF MYOCARDIAL INFARCTION. THE UPPER REFERENCE LIMIT (URL) OF TROPONIN, DEFINED THE 99TH PERCENTILE OF cTnI DISTRIBUTION IN A REFERENCE POPULATION, HAS BEEN CONFIRMED THE DECISION THRESHOLD FOR AR DIAGNOSIS. Performed By: #### H STROYOMI #### [facility] [address] [place] [address] Dr. Moreno Amato Troponin I.cardiac [Mass/vol ume] in Serum or Plasma by High sensitivity methodOrdered By: Alaina Arce on 08-13-2021 Troponin I.cardiac High sensitivity method [Mass/Vol] 50 pg/mL 0-15 [facility] Comment on above: Critical value result called at 1736 on 08/13/21 URINE MICROSCOPIC ONLYon BACTERIA SMALL Abnormal NONE SEEN [facility] Comment on above: Performed By: #### E ANNR, UMICRO #### [facility] [address] [place] [address] Dr. Moreno Amato Bacteria identified Cx Nom (U) INDICATED Normal [facility] Comment on above: Performed By: #### E ANNR, UMICRO #### [facility] [address] [place] [address] Dr. Moreno Amato CAST SEEN Abnormal NONE SEEN [facility] Comment on above: Performed By: #### E ANNR, UMICRO #### [facility] [address] [place] [address] Dr. Moreno Amato Crystals LM Nom (Urine sed) NONE SEEN Normal NONE SEEN [facility] Comment on above: Performed By: #### E RUR, UMICRO #### [facility] [address] [place] [address] Dr. Moreno Aamto Epithelial cells LM Ql (Urine sed) FEW Abnormal NONE SEEN /RARE [facility] Comment on above: Performed By: #### E RUR, UMICRO #### [facility] [address] [place] [address] Dr. Moreno Amato HYALINE CAST FEW Normal [facility] Comment on above: Performed By: #### E RUR, UMICRO #### [facility] [address] [address] [address] Moreno Amato MUCOUS NONE SEEN Normal NONE SEEN [facility] Comment on above: Performed By: #### NAOMI FRANCISCO #### [facility] [address] [address] [address] Moreno Amato RBC 2-5 Abnormal 0-2 [facility] Comment on above: Performed By: #### NAOMI FRANCISCO #### [facility] [address] [place] [address] Dr. Moreno Amato WBC 20-50 Abnormal NONE SEEN [facility] Comment on above: Performed By: #### NAOMI FRANCISCO #### [facility] [address] [place] [address] Dr. Moreno Amato Urine bacteria detection by automated methodOrdered By: Alaina Arce on 08-13-2021 Bacteria Auto Ql (U) None seen None Seen [facility] Urine clarity by refractomet ry automatedOrdered By: Alaina Arce on 08-13-2021 Clarity Refractometry automated (U) Cloudy Clear [facility] Urine culture routineOrdered By: Alaina Arce on 08-13-2021 Bacteria identified Cx Nom (U) 2 Days [facility] Urine glucose measurement by automated test strip (mass/volume)Ordered By: Alaina Arce on 08-13-2021 Glucose Auto test strip (U) [Mass/Vol] Normal mg/dL Normal [facility] Urine hemoglobin detection b y automated test stripOrdered By: Alaina Arce on 08-13-2021 Hemoglobin Auto test strip Ql (U) 1+ Negative [facility] Urine leukocyte esterase det ection by automated test stripOrdered By: Alaina Arce on 08-13-2021 Leukocyte esterase Auto test strip Ql (U) 1+ Negative [facility] Urobilinogen Auto test strip (U) [Mass/Vol]Ordered By: Alaina Arce on 08-13-2021 Urobilinogen (U) [Mass/Vol] Normal mg/dL Normal [facility] XR CHEST 1 Von 08-13-2021 XR CHEST [...] by: Vinay MANN Date: 2021-08-13 06:28 Normal [facility] pH Auto test strip (U)Ordere d By: Alaina Arce on 08-13-2021 pH (U) 5.5 [pH] 5.0-9.0 [facility] KYARA DIGITAL SCREEN SELF REFERRAL W OR WO CAD BILATERALon 12-16-2020 [facility] KYARA DIGITAL SCREEN SELF REFERRAL W OR [...] to the patient regarding the results. The [employer] recommends annual mammograms for women 40 years and older. Interpreted by: Uvaldo Read Signed by: Uvaldo Read 12/16/20 Final result Normal [facility] Vital Signs Date Time Vital Sign Value Performing Clinician Facility 02-14-2023 09:56-0500 Inhaled oxygen flow rate 1 L/min MD Shaikh Thompson Work Phone: [facility] 02-14-2023 08:00-0500 Body temperature 97.7 [degF] MD Shaikh Thompson Work Phone: [facility] 02-14-2023 08:00-0500 Diastolic blood pressure 69 mm[Hg] MD Shaikh Thompson Work Phone: [facility] 02-14-2023 08:00-0500 Heart rate 78 /min MD Shaikh Thompson Work Phone: [facility] 02-14-2023 08:00-0500 Respiratory rate 20 /min MD Shaikh Thompson Work Phone: [facility] 02-14-2023 08:00-0500 SaO2% (BldA) [Mass fraction] 95 % MD Shaikh Thompson Work Phone: [facility] 02-14-2023 08:00-0500 Systolic blood pressure 118 mm[Hg] MD Shaikh Thompson Work Phone: [facility] 02-14-2023 05:51-0500 Body weight 69.9 kg MD Shaikh Thompson Work Phone: [facility] 02-13-2023 12:53-0500 Body height 157.48 cm MD Shaikh Thompson Work Phone: [facility] 02-10-2023 17:00-0500 Heart rate 85 /min [facility] 02-10-2023 16:38-0500 Diastolic blood pressure 80 mm[Hg] [facility] 02-10-2023 16:38-0500 Heart rate 80 /min [facility] 02-10-2023 16:38-0500 Mean blood pressure 99 mm[Hg] [facility] 02-10-2023 16:38-0500 Respiratory rate 18 /min [facility] 02-10-2023 16:38-0500 SaO2% (BldA) [Mass fraction] 95 % [facility] 02-10-2023 16:38-0500 Systolic blood pressure 138 mm[Hg] [facility] 02-10-2023 15:40-0500 Diastolic blood pressure 92 mm[Hg] [facility] 02-10-2023 15:40-0500 Heart rate 90 /min [facility] 02-10-2023 15:40-0500 Mean blood pressure 105 mm[Hg] [facility] 02-10-2023 15:40-0500 Respiratory rate 20 /min [facility] 02-10-2023 15:40-0500 SaO2% (BldA) [Mass fraction] 94 % [facility] 02-10-2023 15:40-0500 Systolic blood pressure 132 mm[Hg] [facility] 02-10-2023 14:42-0500 Body temperature 98.24 [degF] [facility] 02-10-2023 14:42-0500 Heart rate 93 /min [facility] 02-10-2023 14:42-0500 Respiratory rate 24 /min [facility] 02-10-2023 14:00-0500 Blood Pressure Location Jaxson Johnson [facility] 02-10-2023 14:00-0500 Body temperature 96.8 [degF] Jaxson Johnson [facility] 02-10-2023 14:00-0500 Diastolic blood pressure 90 mm[Hg] Jaxson Johnson [facility] 02-10-2023 14:00-0500 Heart rate 88 /min Jaxson Johnson [facility] 02-10-2023 14:00-0500 SaO2% (BldA) [Mass fraction] 92 % Jaxson Johnson [facility] 02-10-2023 14:00-0500 Systolic blood pressure 140 mm[Hg] Jaxson Johnson [facility] 10-15-2022 17:36-0400 Blood Pressure Location Damion Robledopsey [facility] 10-15-2022 17:36-0400 Body temperature 97.34 [degF] Damion Ham [facility] 10-15-2022 17:36-0400 Diastolic blood pressure 76 mm[Hg] Damion Ham [facility] 10-15-2022 17:36-0400 Heart rate 60 /min Damion Ham [facility] 10-15-2022 17:36-0400 SaO2% (BldA) [Mass fraction] 96 % Damion Robledopsey [facility] 10-15-2022 17:36-0400 Systolic blood pressure 122 mm[Hg] Damion Cheek [facility] 10-09-2022 14:24-0400 Body height 157.5 cm Gurmeet Ojeda MD Work Phone[facility] 10-09-2022 14:24-0400 Body temperature 97.5 [degF] Gurmeet Ojeda MD Work Phone: [facility] 10-09-2022 14:24-0400 Body weight 71.26 kg Gurmeet Ojeda MD Work Phone: [facility] 10-09-2022 14:24-0400 Diastolic blood pressure 60 mm[Hg] Gurmeet Ojeda MD Work Phone: [facility] 10-09-2022 14:24-0400 Heart rate 60 /min Gurmeet Ojeda MD Work Phone: [facility] 10-09-2022 14:24-0400 Systolic blood pressure 91 mm[Hg] Gurmeet Ojeda MD Work Phone: [facility] 08-09-2022 14:56-0400 Body height 157.5 cm Gurmeet Ojeda MD Work Phone: [facility] 08-09-2022 14:56-0400 Body temperature 97.7 [degF] Gurmeet Ojeda MD Work Phone: [facility] 08-09-2022 14:56-0400 Body weight 72.53 kg Gurmeet Ojeda MD Work Phone: [facility] 08-09-2022 14:56-0400 Diastolic blood pressure 64 mm[Hg] Gurmeet Ojeda MD Work Phone: [facility] 08-09-2022 14:56-0400 Heart rate 65 /min Gurmeet Ojdea MD Work Phone: [facility] 08-09-2022 14:56-0400 Systolic blood pressure 98 mm[Hg] Gurmeet Ojeda MD Work Phone: [facility] 06-14-2022 12:57-0400 Blood Pressure Location Ayala SALAM [facility] 06-14-2022 12:57-0400 Diastolic blood pressure 74 mm[Hg] Ayala SALAM [facility] 06-14-2022 12:57-0400 Heart rate 80 /min Ayala SALAM [facility] 06-14-2022 12:57-0400 Respiratory rate 16 /min Ayala SALAM [facility] 06-14-2022 12:57-0400 Systolic blood pressure 118 mm[Hg] Ayala SALAM [facility] 06-06-2022 10:13-0400 Blood Pressure Location TRUDY NGUYỄN [facility] 06-06-2022 10:13-0400 Diastolic blood pressure 88 mm[Hg] TRUDY NGUYỄN [facility] 06-06-2022 10:13-0400 Heart rate 74 /min TRUDY NGUYỄN [facility] 06-06-2022 10:13-0400 Systolic blood pressure 144 mm[Hg] TRUDY NGUYỄN [facility] 05-23-2022 10:41-0400 Blood Pressure Location TRUDY NGUYỄN [facility] 05-23-2022 10:41-0400 Diastolic blood pressure 85 mm[Hg] TRUDY NGUYỄN [facility] 05-23-2022 10:41-0400 Heart rate 72 /min TRUDY NGUYỄN [facility] 05-23-2022 10:41-0400 Systolic blood pressure 127 mm[Hg] TRUDY NGUYỄN [facility] 04-11-2022 11:01-0500 Blood Pressure Location TRUDY NGUYỄN [facility] 04-11-2022 11:01-0500 Diastolic blood pressure 88 mm[Hg] TRUDY NGUYỄN [facility] 04-11-2022 11:01-0500 Heart rate 71 /min TRUDY ADRIAN [facility] 04-11-2022 11:01-0500 Systolic blood pressure 146 mm[Hg] TRUDY ADRIAN [facility] 03-19-2022 16:35-0500 Body height 163.83 cm Padmini Waynemond Other [employer] [facility] [employer] Other 03-19-2022 16:35-0500 Body mass index (BMI) [Ratio] 27.37 kg/m2 Padmini Waynemond Other [employer] Other 03-19-2022 16:35-0500 Body temperature 98.9 [degF] Padmini Waynemond Other [employer] Other 03-19-2022 16:35-0500 Body weight 73.48 kg Padmini aWynemond Other [employer] Other 03-19-2022 16:35-0500 Respiratory rate 18 /min Padmini Waynemond Other [employer] Other 03-19-2022 16:35-0500 SaO2% (BldA) [Mass fraction] 96 % Padmini Waynemond Other [employer] Other 03-13-2022 10:12-0500 Diastolic blood pressure 59 mm[Hg] MD Shaikh Thompson Work Phone: [facility] 03-13-2022 10:12-0500 Heart rate 77 /min MD Shaikh Thompson Work Phone: [facility] 03-13-2022 10:12-0500 Respiratory rate 18 /min MD Shaikh Thompson Work Phone: [facility] 03-13-2022 10:12-0500 SaO2% (BldA) [Mass fraction] 98 % MD Shaikh Thompson Work Phone: [facility] 03-13-2022 10:12-0500 Systolic blood pressure 93 mm[Hg] MD Shaikh Thompson Work Phone: [facility] 03-13-2022 07:54-0500 Body height 162.56 cm MD Shaikh Thompson Work Phone: [facility] 03-13-2022 07:54-0500 Body temperature 98 [degF] MD Shaikh Thompson Work Phone: [facility] 03-13-2022 07:54-0500 Body weight 73.48 kg MD Shaikh Thompson Work Phone: [facility] 03-12-2022 08:58-0500 Body height 160.02 cm Dunbarkaylen Thompson Work Phone: [facility] [address] DO Work Phone: 03-12-2022 08:58-0500 Body mass index (BMI) [Ratio] 28.7 kg/m2 Shaikh Lewisdadayevgeniy Work Phone: [facility] [address] DO Work Phone: 03-12-2022 08:58-0500 Body surface area Derived from formula 1.77 m2 Shaikh Donna Work Phone: [facility] 250 DO Work Phone: 03-12-2022 08:58-0500 Body weight 73.48 kg Shaikh Ernestoyevgeniy Work Phone: [facility] 250 DO Work Phone: 03-12-2022 08:58-0500 Diastolic blood pressure 78 mm[Hg] Shaikh Diyawwad Work Phone: [facility] 250 DO Work Phone: 03-12-2022 08:58-0500 Heart rate 66 /min Shaikh Diyawwad Work Phone: [facility] 250 DO Work Phone: 03-12-2022 08:58-0500 Systolic blood pressure 110 mm[Hg] Shaikh Diyawwad Work Phone: [facility] 250 DO Work Phone: 01-23-2022 12:00-0500 72 1 Shaikh Diyawwad Work Phone: [facility] [address] [place] Work Phone: Comment on above: [id number] 11-09-2021 13:26-0400 Body height 160.02 cm Shaikh Lewiswad Work Phone: [facility] 600 DO Work Phone: 11-09-2021 13:26-0400 Body mass index (BMI) [Ratio] 27.83 kg/m2 Shaikh Diyawwad Work Phone: [facility] [address] DO Work Phone: 11-09-2021 13:26-0400 Body surface area Derived from formula 1.75 m2 Dunbar Diyawwad Work Phone: [facility] 600 DO Work Phone: 11-09-2021 13:26-0400 Body weight 71.27 kg Dunbar Fawwad Work Phone: [facility] 600 DO Work Phone: 11-09-2021 13:26-0400 Diastolic blood pressure 82 mm[Hg] Dunbar Fawwad Work Phone: [facility] [address] DO Work Phone: 11-09-2021 13:26-0400 Heart rate 64 /min Shaikh Diyawwad Work Phone: [facility] [address] DO Work Phone: 11-09-2021 13:26-0400 Systolic blood pressure 128 mm[Hg] Shaikh Diyawwad Work Phone: [facility] [address] DO Work Phone: 09-18-2021 10:26-0400 Diastolic blood pressure 80 mm[Hg] Dunbar Diyawwad Work Phone: [facility] [facility] DO Work Phone: 09-18-2021 10:26-0400 Systolic blood pressure 178 mm[Hg] Shaikh Diyawwad Work Phone: [facility] 250 DO Work Phone: 09-18-2021 10:19-0400 Body height 162.56 cm Shaikh Diyawwad Work Phone: [facility] 250 DO Work Phone: 09-18-2021 10:19-0400 Body mass index (BMI) [Ratio] 26.09 kg/m2 Shaikh Diyawwad Work Phone: [facility] 250 DO Work Phone: 09-18-2021 10:19-0400 Body surface area Derived from formula 1.74 m2 Dunbar Fawwad Work Phone: [facility] [facility] DO Work Phone: 09-18-2021 10:19-0400 Body weight 68.95 kg Shaikh Ernestod Work Phone: [facility] 250 DO Work Phone: 09-18-2021 10:19-0400 Diastolic blood pressure 80 mm[Hg] Shaikh Lewiswad Work Phone: [facility] 250 DO Work Phone: 09-18-2021 10:19-0400 Heart rate 60 /min Shaikh Ernestod Work Phone: [facility] [facility] DO Work Phone: 09-18-2021 10:19-0400 Systolic blood pressure 180 mm[Hg] Shaikh Ernestod Work Phone: [facility] 250 DO Work Phone: 08-23-2021 14:00-0400 Body temperature 98.9 [degF] Linn Missler Other [employer] Other 08-23-2021 14:00-0400 Body weight 66.13 kg Linn Missler Other [employer] Other 08-23-2021 14:00-0400 Diastolic blood pressure 87 mm[Hg] Linn Missler Other [employer] Other 08-23-2021 14:00-0400 Respiratory rate 18 /min Linn Missler Other [employer] Other 08-23-2021 14:00-0400 SaO2% (BldA) [Mass fraction] 96 % Linn Missler Other [employer] Other 08-23-2021 14:00-0400 Systolic blood pressure 137 mm[Hg] Linn Missler Other [facility] [employer] Other 08-17-2021 12:00-0400 Diastolic blood pressure 94 mm[Hg] PHYSICIAN NO [facility] 08-17-2021 12:00-0400 Heart rate 78 /min PHYSICIAN NO [facility] 08-17-2021 12:00-0400 Respiratory rate 18 /min PHYSICIAN NO [facility] 08-17-2021 12:00-0400 SaO2% (BldA) [Mass fraction] 95 % PHYSICIAN NO [facility] 08-17-2021 12:00-0400 Systolic blood pressure 152 mm[Hg] PHYSICIAN NO [facility] 08-17-2021 08:00-0400 Body temperature 97.5 [degF] PHYSICIAN NO [facility] 08-17-2021 05:57-0400 Body weight 75.8 kg PHYSICIAN NO [facility] 08-17-2021 00:44-0400 Inhaled oxygen flow rate 2 L/min PHYSICIAN NO [facility] 08-16-2021 14:43-0400 Body height 162.56 cm PHYSICIAN NO [facility] 08-16-2021 14:43-0400 Body mass index (BMI) [Ratio] 25.6 kg/m2 PHYSICIAN NO [facility] Encounters Encounter Date Encounter Type Care Provider Facility Start: 06-17-2023 End: 06-17-2023 ambulatory SHAIKH DONNA Not Available Start: 06-04-2023 End: 06-04-2023 ambulatory ROSIE BLANCHARD Not Available Start: 06-03-2023 End: 06-04-2023 ambulatory TRUDY ADRIAN Facility: [place] Start: 06-03-2023 End: 06-03-2023 Patient encounter procedure TRUDY ADRIAN [facility] [place] Start: 05-17-2023 End: 05-17-2023 ambulatory ROSIE BLANCHARD Not Available Start: 05-13-2023 End: 05-13-2023 ambulatory SHAIKH ERNESTOYevgeniy Not Available Start: 03-12-2023 End: 03-12-2023 ambulatory Marquez Beal Facility:[facility] Start: 03-12-2023 End: 03-12-2023 ambulatory MD Shaikh Thompson Work Phone: [facility] Work Phone: Start: 03-12-2023 End: 03-12-2023 Patient encounter procedure MD Shaikh Thompson Work Phone: [facility] [place] Work Phone: Start: 02-19-2023 End: 02-19-2023 ambulatory SHAIKH LEWISNICOLE Not Available Start: 02-12-2023 End: 02-14-2023 Evaluation and management of inpatient Jacques East Facility:[facility] Start: 02-12-2023 End: 02-14-2023 Evaluation and management of inpatient MD Shaikh Thompson Work Phone: [facility] [place] [facility] Work Phone: Start: 02-10-2023 End: 02-10-2023 Emergency department patient visit Gabby Sandsnate [facility] Start: 02-10-2023 End: 02-11-2023 ambulatory Jaxson Johnson [facility] Start: 02-10-2023 End: 02-10-2023 Lab Drop off Jaxson Johnson [facility] Start: 02-10-2023 End: 02-10-2023 [facility] Start: 02-10-2023 End: 02-10-2023 Patient encounter procedure Jaxson Johnson [facility] Start: 01-30-2023 End: 01-31-2023 ambulatory TRUDY ADRIAN Facility:[facility] Start: 01-30-2023 End: 01-30-2023 Patient encounter procedure TRUDY ADRIAN [facility] Start: 10-29-2022 Orders Only Debra naik [...] Patient Question Start: 10-15-2022 End: 10-16-2022 ambulatory Damion Cheek Facility[facility] Start: 10-15-2022 End: 10-15-2022 Lab Drop off Damion Cheek [facility] Start: 10-15-2022 End: 10-15-2022 Patient encounter procedure Damion Cheek [facility] Start: 10-15-2022 Rx Renewal Shaikh Donna Work Phone: [facility] [address] DO Work Phone: Start: 10-09-2022 End: 10-10-2022 ambulatory Rosie Harris DO Work Phone: [facility] [place] Start: 10-09-2022 End: 10-09-2022 Patient encounter procedure Gurmeet Ojeda MD Work Phone: [facility] [place] Comment on above: Stage 3 chronic kidn ey disease, unspecified whether stage 3a or 3b CKD (HCC) (Primary Dx); Tobacco abuse; Hypertension, renal disease; Mixed hyperlipidemia; Atrophic kidney, acquired Start: 09-03-2022 End: 09-04-2022 ambulatory SHAIKH DONNA Facility:[facility] Start: 08-23-2022 End: 08-24-2022 ambulatory DEBRA FISHMAN [facility] Start: 08-09-2022 End: 08-09-2022 Patient encounter procedure Gurmeet Ojeda MD Work Phone: [facility] Comment on above: Stage 3b chronic kid domingo disease (HCC) (Primary Dx); Hypertension, unspecified type; Orthostatic hypotension; Alkalosis; Hypercholesteremia Start: 08-09-2022 End: 08-10-2022 ambulatory Debra Fishman MD Work Phone: [facility] Start: 08-01-2022 ambulatory TRUDY E NGUYỄN Facili ty:[facility] Start: 07-11-2022 ambulatory TRUDY E NGUYỄN Facili ty:[facility] Start: 06-27-2022 ambulatory TRUDY E NGUYỄN Facili ty:[facility] Start: 06-19-2022 ambulatory SHAIKH Enrique THOMPSON Facilit y:[facility] Start: 06-18-2022 ambulatory DUNBAREnrique THOMPSON Facility: [facility] Start: 06-14-2022 End: 06-15-2022 ambulatory SHAIKH DONNA Facility:[facility] Start: 06-14-2022 End: 06-14-2022 Patient encounter procedure Jamie BILLS [facility] Start: 06-12-2022 End: 06-13-2022 ambulatory SHAIKH Enrique THOMPSON Facility:[facility] Start: 06-06-2022 End: 06-07-2022 ambulatory TRUDY E NGUYỄN Facility:[facility] Start: 06-06-2022 End: 06-06-2022 Patient encounter procedure TRUDY E NGUYỄN [facility] Start: 05-23-2022 End: 05-23-2022 Patient encounter procedure TRUDY ADRIAN [facility] [place] Start: 04-30-2022 End: 05-01-2022 ambulatory SHAIKH Enrique THOMPSON Facility:[facility] Start: 04-11-2022 End: 04-11-2022 Patient encounter procedure TRUDY ADRIAN [facility] Start: 04-05-2022 End: 04-05-2022 ambulatory Kevyn Sharma Other [employer] Other Start: 04-05-2022 Telephone encounter Kevyn castano [facility] Start: 03-27-2022 End: 03-28-[address] MARQUEZ BEAL Facility:[facility] Start: 03-19-2022 End: 03-19-2022 ambulatory Padmini Sam Other [employer] Other Start: 03-19-2022 Office outpatient vi sit 15 minutes Padmini Sam [facility] Start: 03-13-2022 End: 03-13-2022 Admission to same day [facility] MD Shaikh Thompson Work Phone: [facility] Work Phone: Start: 03-13-2022 End: 03-13-2022 ambulatory MD Shaikh Thompson Work Phone: [facility] Work Phone: Start: 03-12-2022 Office outpatient vi sit 25 minutes Shaikh Donna Work Phone: [facility] 250 DO Work Phone: Start: 02-26-2022 End: 02-26-[address] XAVIER STAFFORD . Facility:H1 Start: 02-19-2022 End: 02-20-2022 ambulatory SHAIKH Enrique SAUCEDOWAD Facility:H1 Start: 01-29-2022 Chart Update Shaikh Diyawwad Work Phone: [facility] 600 DO Work Phone: Start: 01-23-[address] Marquez Beal II Facility:[id number] Start: 01-23-2022 Patient encounter procedure Shaikh Lewiswad Work Phone: [facility] 250 DO Work Phone: Start: 11-16-2021 Rx Renewal Fawwad Work Phone: [facility] 600 DO Work Phone: Start: 11-09-2021 ambulatory Marquez Beal II Facility: Start: 10-30-2021 End: 10-31-2021 ambulatory SHAIKH Enrique THOMPSON Facility:H1 Start: 10-24-2021 Chart Update Shaikh Lewiswad Work Phone: [facility] 250 DO Work Phone: Start: 10-17-[address] Marquez Beal II Facility:[id number] Start: 09-18-2021 ambulatory Marquez Beal II Facility: Start: 09-18-2021 Office outpatient vi sit 25 minutes Dunbar Fawwad Work Phone: [facility] 250 DO Work Phone: Start: 09-18-2021 End: 09-18-2021 Patient encounter procedure PHYSICIAN AXEL [facility] Main [place] Start: 09-18-2021 ambulatory Marquez Beal II Faci lity:[id number] Start: 08-23-2021 ([facility]UCK) [facility] Transition of Care [facility] Start: 08-23-2021 End: 08-23-2021 ambulatory Linn Byrne Other Jasper Bancha Other Start: 08-23-2021 End: 08-23-2021 Patient encounter procedure PHYSICIAN NO [facility] Start: 08-17-2021 End: 08-17-2021 Patient encounter procedure PHYSICIAN NO [facility]-Electrodiagnostics Start: 08-17-2021 ambulatory Marquez Dianeric vinay Hayshussein II Facility:[id number] Start: 08-16-[address] Jaycob Newman Facility:[id number] Start: 08-15-2021 ambulatory Marquez Hayshussein II Facility:[id number] Start: 08-14-2021 ambulatory Marquez Beal II Facility:[id number] Start: 08-13-2021 End: 08-17-2021 Evaluation and management of inpatient PHYSICIAN NO [facility] [place] [facility] Start: 08-13-2021 End: 08-13-2021 ambulatory Marquez Beal II Facility:[id number] Start: 12-08-2020 End: 12-11-2020 ambulatory [facility] Start: 12-08-2020 End: 12-10-2020 Subsequent hospital visit by physician [facility] Mammography Comment on above: Encounter for [...] FAMILY Start: 08-15-2021 Plain chest X-ray PHYSI ATJ NO FAMILY Start: 08-15-2021 Doppler ultrasonogra phy [...] Donna Work Phone: None (qualifier value) VERONICA ADRIAN Total colonoscopy Shaikh Lewis austin Work Phone: Comment on above: 2016; Urine culture PHYSICIAN NO F AMILY Plan of Treatment Date Care Activity Detail Author Start: 10-10-2023 End: 12-10-2023 Renal function 2000 panel - Serum or Plasma RENAL FUNCTION PANEL Lab Routine Stage 3 chronic kidney disease, unspecified whether stage 3a or 3b CKD (HCC) Expected: 10/10/2023, Expires: 12/10/2023 [facility] Work Phone: Comment on above: Expected: 10/10/2023 , Expires: 12/10/2023 Start: 08-24-2023 SERUM CRE[address]ININE SERUM CREATININE [facility] Start: 03-12-2023 FUV, Provider: Marquez Beal, Status: Pen, Time: 11:00 AM FUV, Provider: Marquez Beal, Status: Pen, Time: 11:00 AM [facility] 250 DO Work Phone: Start: 02-14-2023 [facility] Start: 02-12-2023 Microbial culture of sputum [facility] Start: 02-12-2023 Aerobic microbial culture Aerobic Cu lture [facility] Start: 02-12-2023 Hospital admission [facility] Start: 02-12-2023 [facility] Start: 10-19-2022 Influenza vaccination C [facility] Start: 08-09-2022 End: 10-09-2022 25-hydroxyvitamin D3 [Mass/volume] in Serum or Plasma VITAMIN D 25 HYDROXY Lab Routine Stage 3b chronic kidney disease (HCC) Expected: 08/09/2022, Expires: 10/09/2022 [facility] Work Phone: Comment on above: Expected: 08/09/2022 , Expires: 10/09/2022 Start: 08-09-2022 End: 10-09-2022 MONOCLONAL PROTEIN, SERUM (BLOOD) MONOCLONAL PROTEIN, SERUM (BLOOD) Lab Routine Stage 3b chronic kidney disease (HCC) Expected: 08/09/2022, Expires: 10/09/2022 [facility] Work Phone: Comment on above: Expected: 08/09/2022 , Expires: 10/09/2022 Start: 08-09-2022 End: 10-09-2022 Renal function 2000 panel - Serum or Plasma RENAL FUNCTION PANEL Lab Routine Stage 3b chronic kidney disease (HCC) Expected: 08/09/2022, Expires: 10/09/2022 [facility] Work Phone: Comment on above: Expected: 08/09/2022 , Expires: 10/09/2022 Start: 03-13-2022 [facility] Start: 03-12-2022 FUV, Provider: Marquez Beal, Status: Pen, Time: 8:30 AM FUV, Provider: Marquez Beal, Status: Pen, Time: 8:30 AM [facility] 250 DO Work Phone: Start: 02-18-2022 DEPRESSION ASSESSMENT DEPRESSION ASS ESSMENT [facility] Start: 12-21-2021 FUV, Provider: Marquez Beal, Status: Pen, Time: 12:50 PM FUV, Provider: Marquez Beal, Status: Pen, Time: 12:50 PM -[facility] 600 DO Work Phone: Start: 12-08-2021 Mammography MAMMOGRAM [facility] Start: 11-22-2021 STRESS NUC, Provider : TRENA HHVI NUCLEAR 01,[id number], Status: Pen, Time: 12:00 PM STRESS NUC, Provider: TRENA HHVI NUCLEAR 01,[id number], Status: Pen, Time: 12:00 PM -[facility] 600 DO Work Phone: Start: 11-22-2021 NURSEVST, Provider: KAYLEN ANAND RACING MECHANIC 1,[id number], Status: Pen, Time: 10:30 AM NURSEVST, Provider: KAYLEN ANAND RACING MECHANIC 1,[id number], Status: Pen, Time: 10:30 AM -[facility] 600 DO Work Phone: Start: 11-09-2021 FUV, Provider: Marquez Beal, Status: Pen, Time: 1:10 PM FUV, Provider: Marquez Beal, Status: Pen, Time: 1:10 PM [facility] Work Phone: Start: 10-17-2021 STRESS IVAN, Provider : TRENA HHVI NUCLEAR 01,[id number], Status: Pen, Time: 2:00 PM STRESS IVAN, Provider: TRENA HHVI NUCLEAR 01,[id number], Status: Pen, Time: 2:00 PM -[facility] 250 DO Work Phone: Start: 08-17-2021 [facility] Work Phone: Start: 08-14-2021 Referral to neurologist [facility] Work Phone: Start: 08-14-2021 Blood culture for bacteria, including anaerobic screen Blood Culture [facility] Start: 08-14-2021 [facility] Work Phone: Start: 08-13-2021 Ultrasonography of R ight and Left Heart, Transesophageal Ultrasonography of Right and Left Heart, Transesophageal [facility] Start: 08-13-2021 Hospital admission [facility] Work Phone: Start: 08-13-2021 Referral to signals officer [facility] Work Phone: Start: 03-27-2021 Colonoscopy COLONOSCOPY [facility] Start: 03-27-2021 COLORECTAL CANCER SCREENING COLORECTAL CANCER SCREENING [facility] Start: 03-11-2021 COVID-19 VACCINE (4 - Booster for Pfizer series) COVID-19 VACCINE (4 - Booster for Pfizer series) [facility] Start: 03-11-2021 COVID-19 VACCINE (4 - Pfizer series) COVID-19 VACCINE (4 - Pfizer series) [facility] Start: 02-07-2021 HPV TESTING HPV TESTING [facility] Start: 02-07-2021 PAP TESTING PAP TESTING [facility] Start: 10-19-2020 Influenza vaccination Flu vaccine (# 1) [employer] Phone: Start: 03-14-2017 HEMOGLOBIN/HEMATOCRIT HEMOGLOBIN/HEM ATOCRIT [facility] Start: 2012 Screening for malign ant neoplasm of breast Breast cancer screen [employer] Phone: Start: 2012 Shingles Vaccine (1 of 2) Herring gles Vaccine (1 of 2) [employer] Phone: Start: 2012 SHINGRIX VACCINE (1 of 2) HERRING GRIX VACCINE (1 of 2) [facility] Start: 05-12-2007 COLOGUARD (FIT-DNA) COLOGUARD (FIT-D NA) [facility] Start: 05-12-[address] COLONOGRAPHY [facility] Start: 05-12-2007 DIABETES SCREEN DIABETES SCREEN [facility] Start: 05-12-2007 FECAL OCCULT BLOOD FECAL OCCULT BLOO D [facility] Start: 05-12-2007 LIPID SCREEN LIPID SCREEN [facility] Start: 05-12-2007 Screening for malign ant neoplasm of colon Colon cancer screen colonoscopy [facility] Work Phone: Start: 05-12-2007 SIGMOIDOSCOPY SIGMOIDOSCOPY [facility] Start: 2002 Lipid panel Lipid screen [facility] Work Phone: Start: 1992 Screening for malign ant neoplasm of cervix [facility] Phone: Start: 05-12-1983 Screening for malign ant neoplasm of cervix Pap smear [facility] Work Phone: Start: 1981 DTaP/Tdap/Td vaccine (1 - Tdap) DTaP/Tdap/Td vaccine (1 - Tdap) [facility] [employer] Phone: Start: 1981 Urine microalbumin profile DTAP,TDAP,TD (1 - Tdap) [facility] Start: 1980 ANNUAL PCP TEAM FIGURE MODEL ZEFERINO DISEASE VISIT ANNUAL PCP TEAM CHRONIC DISEASE VISIT [facility] Start: 1980 HEPATITIS C SCREENING HEPATITIS C [facility] Start: 1980 HIV SCREENING HIV SCREENING [facility] Start: 1977 HIV screening HIV screen [facility] Work Phone: Start: 1962 Hepatitis C screening Hepatitis C [facility] Work Phone: Activated protein C resistance assay [facility] Work Phone: Antithrombin [Units/volume] in Platelet poor plasma by Chromogenic method [facility] Work Phone: aPTT.lupus sensitive (LA screen) [facility] Work Phone: aPTT.lupus sensitive W excess phospholipid actual/Normal (normalized LA confirm) [facility] Work Phone: aPTT.lupus sensitive/aPTT.lupus sensitive W excess phospholipid (screen to confirm ra [facility] Work Phone: Beta 2 glycoprotein 1 IgG Ab [Units/volume] in Serum [facility] Work Phone: Beta 2 glycoprotein 1 IgM Ab [Units/volume] in Serum [facility] Work Phone: Cardiolipin IgG Ab [Units/volume] in Serum by Immunoassay [facility] Work Phone: Cardiolipin IgM Ab [Units/volume] in Serum by Immunoassay [facility] Work Phone: dRVVT (LA screen) [facility] Work Phone: F2 gene mutations fo und [Identifier] in Blood or Tissue by Molecular genetics method [employer] [facility] Work Phone: Homocysteine [Moles/volume] in Serum or Plasma [facility] Work Phone: Lupus anticoagulant [Interpretation] in Platelet poor plasma [facility] Work Phone: End: 12-08-2020 BERTA KYARA DIGITAL SCREEN SELF REFERRAL W OR WO CAD BILATERAL BERTA KYARA DIGITAL SCREEN SELF REFERRAL W OR WO CAD BILATERAL Imaging Routine Encounter for screening mammogram for malignant neoplasm of breast 1 Occurrences starting 12/08/2020 until 12/08/2020 [employer] Work Phone: Comment on above: 1 Occurrences starti ng 12/08/2020 until 12/08/2020 BERTA KYARA DIGITAL SCR EEN SELF REFERRAL W OR WO CAD BILATERAL BERTA KYARA DIGITAL SCREEN SELF REFERRAL W OR WO CAD BILATERAL Imaging Routine Encounter for screening mammogram for malignant neoplasm of breast 12/08/2020 1:30 PM EDT [employer] Work Phone: Patient Education [facility] Work Phone: Patient referral [facility] Work Phone: Plasminogen assay [facility] Work Phone: Protein C actual/nor mal in Platelet poor plasma by Chromogenic method [facility] Work Phone: Protein S Free Ag [Units/volume] in Platelet poor plasma by Immunoassay [facility] Work Phone: Renin [Enzymatic activity/volume] in Plasma [facility] Work Phone: End: 09-08-2023 US KIDNEY/BLADDER US KIDNEY/BLADDER Radiology Routine Stage 3b chronic kidney disease (HCC) 1 Occurrences starting 08/09/2022 until 09/08/2023 [facility] Work Phone: Comment on above: 1 Occurrences starti ng 08/09/2022 until 09/08/2023 [facility] Immunizations Immunization Date Immunization Notes Care Provider Fa cility 01-14-2021 Pfizer-BioNTech COVI D-19 Vacc 30 MCG/0.3ML Intramuscular Suspension Shaikh Diyasarah Work Phone: [facility] Comment on above: Result Comment: 2022: [id number] 06-25-2020 Pfizer-BioNTech COVI D-19 Vacc 30 MCG/0.3ML Intramuscular Suspension Shaikh Diyasarah Work Phone: [facility] Comment on above: Reason for Medicatio n: Prophylaxis 06-04-2020 Pfizer-BioNTech COVI D-19 Vacc 30 MCG/0.3ML Intramuscular Suspension Shaikh Diyasarah Work Phone: [facility] Comment on above: Reason for Medicatio n: Prophylaxis Payers Date Payer Category Payer Self-pay [id number] 2022 Medicaid [id number] 1960 Unknown [id number] 2.16.8 40.1.799305.3.579.2.8 1962 Unknown [id number] 2.16.8 40.1.690749.3.579.2.1068 1962 Unknown [id number] 2.. 840.1.227741.3.579.2.356 1962 Unknown [id number] 2.16. 840.1.038854.3.579.2.356 1962 Unknown [id number] 2.16. 840.1.397504.3.579.2.356 1962 Unknown [id number] 2.16. 840.1.088098.3.579.2.356 1962 Unknown [id number] 2.16. 840.1.056067.3.579.2.356 1962 Unknown [id number] 2.16. 840.1.911165.3.579.2.356 1962 Unknown [id number] 2.16. 840.1.725030.3.579.2.356 1962 Unknown [id number] 2.16. 840.1.736531.3.579.2.356 1962 Unknown [id number] 2.16. 840.1.784747.3.579.2.356 1962 Unknown [id number] 2.16. 840.1.584590.3.579.2.356 1962 Unknown [id number] 2.16. 840.1.840440.3.579.2.356 1962 Unknown [id number] 2.16.84 0.1.430119.3.579.2.593 1962 Unknown [id number] 2.16.84 0.1.609963.3.579.2.593 1962 Unknown [id number] 2.16.84 0.1.652469.3.579.2.593 1962 Unknown [id number] 2.16.84 0.1.161985.3.579.2.593 1962 Unknown [id number] 2.16.84 0.1.912340.3.579.2.593 1962 Unknown [id number] 2.16.84 0.1.129317.3.579.2.593 1962 Unknown [id number] 2.16.84 0.1.167403.3.579.2.593 1962 Unknown [id number] 2.16.84 0.1.126123.3.579.2.593 1962 Unknown [id number] 2.16.8 40.1.826805.3.579.2.1244 1962 Unknown [id number] 2.16.8 40.1.067466.3.579.2.727 1962 Unknown [id number] 2.16.8 40.1.465179.3.579.2.727 1962 Unknown [id number] 2.16.8 40.1.539129.3.579.2.727 1962 Unknown [id number] 2.16.8 40.1.045033.3.579.2.727 1962 Unknown [id number] 2.16.8 40.1.998470.3.579.2.727 1962 Unknown [id number] 2.16.8 40.1.071266.3.579.2.727 1962 Unknown [id number] 2.16.8 40.1.439730.3.579.2.727 1962 Unknown [id number] 2.16.8 40.1.429740.3.579.2.727 1962 Unknown [id number] 2.16.8 40.1.751188.3.579.2.727 1962 Unknown [id number] 2.16.8 40.1.377945.3.579.2.727 1962 Unknown [id number] 2.16.8 40.1.935195.3.579.2.727 1962 Unknown [id number] 2.16.8 40.1.142711.3.579.2.727 1962 Unknown [id number] 2.16.84 0.1.567209.3.579.2.1259 1962 Unknown [id number] 2.16.84 0.1.513867.3.579.2.1259 1962 Unknown [id number] 2.16.84 0.1.273942.3.579.2.1259 1962 Unknown [id number] 2.16.84 0.1.292954.3.579.2.1259 1962 Unknown [id number] 2.16.840 .1.371039.3.579.2.1259 1959 Medicaid [id number] 30 [id number] Unknown [facility] [id number] Unknown Unknown [id number] 2.16.8 40.1.675263.3.579.2.531 Unknown [id number] 2.16.8 40.1.689722.3.579.2.531 Social History Date Type Detail Facility Start: 12-08-2020 Tobacco smoking stat us [facility] Unknown if ever smoked [employer] Work Phone: Start: 1960 Sex Assigned At Not on file M [employer] Work Phone: Start: 08-16-2021 End: 08-09-2022 Tobacco smoking status WYIS Ex-smoker (finding) [facility] Start: 08-09-2022 End: 10-09-2022 History of tobacco use [facility] Start: 1960 Sex Assigned At Female F [facility] Start: 08-09-2022 End: 10-09-2022 Daily caffeine consumption Daily caffeine consumption -[facility] [employer] [employer] DO Work Phone: Comment on above: 1 CUP OF COFFEE; 2 CIGS DAILY; quit 2021; Start: 04-11-2022 End: 10-15-2022 Tobacco smoking status Heavy tobacco smoker (finding) [facility] Tobacco smoking status Never [facility] Start: 02-12-2023 End: 08-18-2017 History of tobacco use Current smoker [facility] End: 08-18-2017 History of tobacco use Cigarette Smoker [facility] Start: 08-09-2022 Tobacco use and exposure Smokeless tobacco non-user [facility] Start: 08-09-2022 Alcohol intake Current drinke r of alcohol (finding) [facility] Start: 10-09-2022 Alcohol intake Ex-drinker (finding) [facility] Start: 02-10-2023 Tobacco smoking status Light t obacco smoker (finding) [facility] Goals Date Patient Goal Desired Activity /State Functional Status Date Assessment Result Facility 02-14-2023 Functional status Patient at Baseline [facility] Work Phone: 02-10-2023 Functional Status N/A [facility] 10-15-2022 Functional Status N/A [facility] 06-14-2022 Functional Status N/A [facility] 06-06-2022 Functional Status N/A [facility] 05-23-2022 Functional Status N/A [facility] 04-11-2022 Functional Status N/A [facility] 08-17-2021 Functional status Patient at Baseline [facility] Work Phone: Mental Status Date Assessment Result Facility 02-14-2023 Cognitive function Cognitive Sta tus Patient at Baseline [facility] Work Phone: 08-17-2021 Cognitive function Cognitive Sta tus Patient at Baseline [facility] Work Phone: Clinical Notes 01-18-2010 to 02-14-2023 Note Date & Type Note Facility 02-14-2023 Discharge summary Note Date/Time February 14, 2023 12:53pm [facility] [address] [place] [id number] Discharge Summary Signed Patient: Deysi Hernandez MR#: [id number] : 1960 Acct:[id number] Age/Sex: 62 / F Adm Date: 3 Loc: 3T Room: [address] [place] [address]: Jacques East MD Copies to: [...] female with PMHx of CKD presented to [facility] with shortness of breath and was transferred to [facility] due to elevated troponins. Patient states she [...] % (Auto) 87.6, Lymph % (Auto) 7.6, Hettinger % (Auto) 4.7, Eos % (Auto) 0.0, Baso % (Auto) 0.1, Nucleat RBC Rel Count 0.0, Neut # (Auto) 11.1 H, Lymph #(Auto) 1.0, Hettinger # (Auto) 0.6, Eos # (Auto) 0.0, [...] signed by Jacques East MD> 02/14/23 1253 [facility] Work Phone: 1(675) 196-305812-28-2023 Progress note Author Jacques East [facility] February 14, 2023 12:45pm Note Date/Time February 14, 2023 7:29am [facility] [address] [place] [address] Hospitalist Progress Note Signed Patient: Deysi Hernandez MR#: [id number] : 1960 Acct:[id number] Age/Sex: 62 / F Adm Date: 3 Loc: Room: [address] [place] [address] Type: ADM IN Attending Dr: Jacques East [...] <Electronically signed by Jacques East MD> 02/14/23 1246 [facility] Work Phone: 1(742) 185-810712-27-2023 Progress note Author Jacques East [facility] February 13, 2023 10:47am Note Date/Time February 13, 2023 10:40am [facility] [address] [place] [address] Hospitalist Progress Note Signed Patient: Deysi Hernandez MR#: [id number] : 1960 Acct:[id number] Age/Sex: 62 / F Adm Date: 3 Loc: Room: [address] [place] [address] Type: ADM IN Attending Dr: Jacques East [...] creatinine clearance -Trending downward from 80s at [place] to 70s here. repeat trop 43, flat [...] <Electronically signed by Jacques East MD> 02/13/[address] [place] [address] Ctr Work Phone: 1(854) 825-532412-26-2023 History and physical note Author Jacques East [facility] February 12, 2023 11:26am Note Date/Time February 12, 2023 9:53am [facility] [address] [place] [address] Hospitalist H&P Signed Patient: Deysi Hernandez MR#: [id number] : 1960 Acct:[id number] Age/Sex: 62 / F Adm Date: 3 Loc: Room: [address] [place] [address] Type: ADM INOo Attending Dr: Jacques East MD Copies to: Geneva Rivas DO, RES MD Shaikh Donna Piña MD~ HPI DATE OF EXAMINATION: 02/12/23 CHIEF COMPLAINT: Shortness of breath HISTORY OF PRESENT ILLNESS: Patient is a 62 year old female with PMHx of CKD presented to [facility] with shortness of breath and was transferred to [facility] due to elevated troponins. Patient states she [...] troponin 70.6 (down from 87 yesterday at [place]). Review of Systems Review of Systems All other systems reviewed & are negative unless noted below or in HPI Review of systems: 10 systems are reviewed and are negative except as mentioned elsewhere in the documentation [facility] Medical History CKD (chronic kidney disease) stage 3, GFR 30-59 ml/min Embolic cerebrovascular disease High cholesterol Problem List clean-up per request of Phys. EHR Cmte Hypertension Problem List clean-up per request of Phys. [facility] Father Myocardial [...] % (Auto) 4.0 % (.) 02/12/23 06:41 Hettinger % (Auto) 1.8 % (.) 02/12/23 06:41 Eos % (Auto) 0.0 % (.) 02/12/23 06:41 Baso % (Auto) 0.2 % (.) 02/12/23 06:41 Nucleat RBC Rel Count 0.1 /100 WBC (0-0.5) 02/12/23 06:41 Neut # (Auto) 14.1 x10E3/uL (1.8-7.7) H 02/12/23 06:41 Lymph # (Auto) 0.6 x10E3/uL (1.00-4.8) L 02/12/23 06:41 Hettinger # (Auto) 0.3 x10E3/uL (0.0-0.8) 02/12/23 06:41 [...] needed to reflect my findings and plan. Jacquse Quiñonez MD IP vs OBS Justification Based [...] <Electronically signed by Jacques East MD> 02/12/23 112 [facility] Work Phone: 1(395) 745-261012-24-2023 Hospital Discharge instructions Patient Education 02/10/2023 17:12:09 Urinary Tract Infection, Adult, Dkzw-zl-Nzzg Urinary Tract Infection, Adult A urinary tract [...] Follow these instructions at home: Medicines Take stlh-rnd-wengngk and prescription medicines only as told by [...] provider. Document Revised: 09/16/2020 Document Reviewed: 09/16/2020 [employer] Patient Education 2022 [employer]. 02/10/2023 17:12:09 Acute Bronchitis, Adult Acute Bronchitis, [...] condition. Follow these instructions at home: Take elom-jjq-ypaibgc and prescription medicines only as told by [...] and water are not available, use hand carbon accountant. Avoid contact with people who have cold [...] it is easier to cough up. Take irvi-vrs-gggdgag and prescription medicines only as told by [...] provider. Document Revised: 05/17/2022 Document Reviewed: 06/07/2021 [employer] Patient Education 2022 [employer]. Follow Up Care 02/10/2023 14:38:40 With:SHAIKH DONNA Address: [address] [place], [place] [address] [address] [phone] Business (1) When:02/13/2023 16:16:37 Comments:Follow-up with your primary care provider in 3 to 5 days. If symptoms worsen, do not improve, or new symptoms arise please report back to emergency department for further evaluation. [facility]12-24-2023 Evaluation + Plan note Diagnostic Tests Pending * Urine Culture 02/10/23 [facility]12-24-2023 Evaluation + Plan noteExtracted from: Title:ED [...] day(s), # 14 cap(s), Refills(s) 0, Pharmacy: [facility]/pharmacy #[id number], 163, cm, 02/10/23 14:52:00 EST, Height/Length Dosing, 70, kg, 02/10/23 14:52:00 EST, Weight Dosing predniSONE, 60 mg = 3 tab(s), Oral, Daily, X 5 day(s), # 15 tab(s), Refills(s) 0, Pharmacy: [facility]/pharmacy #[id number], 163, cm, 02/10/23 14:52:00 EST, Height/Length [...] & PTT [place] [place] Saline Lock Insert Troponin 0 Hr. Troponin 3 Hr. XR Chest Single View [facility]09-12-2023 Evaluation note* Diagnosis Stage 3 chronic kidney disease, unspecified whether stage 3a or 3b CKD (HCC) documented [facility]2023 NoteHNO ID: [id number] Author: Debra Fishman MD Service: ? Author Type: Physician Type: Progress Notes Filed: 10/29/2022 9:00 PM Note Text: Patient contacted me regarding high blood pressure in 150-160 mmHg at home. We agreed to increase lisinopril back to 10 mg daily, updated prescription sent to pharmacy on file. Debra Fishman MD Staff, Department of Kidney Medicine 10/29/22 9:00 [facility]09-11-2023 History of Present illness Narrative * Debra Fishman MD - 10/29/2022 8:59 PM EDT Patient contacted me regarding high blood pressure in 150-160 mmHg at home. We agreed to increase lisinopril back to 10 mg daily, updated prescription sent to pharmacy on file. Debra Fishman MD Staff, Department of Kidney Medicine 10/29/22 9:00 PM [facility] Miscellaneous Notes* Telephone Encounter - Debra [...] question. I will also send her a [employer] message encouraging communicate via CHAINels if needed. Debra Fishman MD Staff, Department of Kidney Medicine 10/26/22 5:49 PM [facility] in [facility]23 Miscellaneous Notes* Telephone Encounter - Linn Solis Ma - 10/25/2022 12:32 PM EDT Patient called the office very upset because today at here appointment with Kidney Medicine she wasseen by another provider and it wasn't her kidney doctor. She would like Dr. Fishman call her back at [phone] because she has lots of questions that the patient wants answers to and the patient is requesting that the provider calls her back after 5:30 pm due to the patient works that late Saturday thru Saturday documented in this [facility]City [facility]23 Hospital Discharge instructions Patient Education 10/15/2022 [...] Department of Health and Human Services: www.smokefree.gov [place] [employer]: www.freedomfromsmoking.org [place] Heart Association: www.heart.org Where to find more [...] provider. Document Revised: 02/06/2022 Document Reviewed: 02/06/2022 [employer] Patient Education 2022 [employer]. 10/15/2022 18:04:53 Steps to Quit Smoking Steps [...] require a prescription. You can also purchase lhon-ozx-bmbilpk medicines. Medicines may have nicotine in them [...] and encouragement. Call telephone quitlines, such as 0-620-IINU-NOW, reach out to support groups, or work [...] provider. Document Revised: 01/26/2022 Document Reviewed: 01/26/2022 [employer] Patient Education 2022 [employer]. 10/15/2022 18:04:51 BMI for Adults BMI for [...] numbers. This can be done either in Tristanian ([place] or metric measurements. Note that charts and online BMI calculators are available to help you find your BMI quickly and easily without having to do these calculations yourself. To calculate your BMI in Tristanian ([place] measurements: 1.Measure your weight in pounds [...] Centers for Disease Control and Prevention: www.cdc.gov [place] Heart Association: www.heart.org National Heart, Lung, and Blood [place]: www.nhlbi.nih.gov Summary Body mass index (BMI) is a number that is calculated from a person's weight and height. BMI may help estimate how much of a person's weight is composed of fat. BMI can help identify thosewho may be at higher risk for certain medical problems. BMI can be measured using Tristanian measurements or metric measurements. BMI charts are used to identify whether you are underweight, normal weight, overweight, or obese. This information is not intended to replace advice given to you by your health care provider. Make sure you discuss any questions you have with your health care provider. Document Revised: 10/28/2019 Document Reviewed: 09/04/2019 [employer] Patient Education 2022 [employer] 10/15/2022 18:04:48 Urinary Tract Infection, Adult Urinary [...] Treatment for this condition includes: Antibiotic medicine. Vskh-yjx-qlssgbk medicines to treat discomfort. Drinking enough water [...] Follow these instructions at home: Medicines Take izdg-yja-xuziunv and prescription medicines only as told by [...] provider. Document Revised: 09/16/2020 Document Reviewed: 09/16/2020 [employer] Patient Education 2022 [employer]. 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 Author Type: Physician Type: Progress Notes Filed: 10/09/2022 5:08 PM Note Text: [facility] SERVICE DATE: 10/09/2022 [...] CKD, ESRD, hearing loss. She is a chcf smoker, currently 0.75 pack per day but [...] note: I have interview (more content not included)...[facility] 10-09-2022 Instructions* Patient Instructions* Gurmeet Ojeda [...] to smoking cessation program documented in this encounterCity Hospital08-22-2023 History of Present illness Narrative* Rosie Harris, DO - 10/09/2022 2:32 PM EDT 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 Rosie Harris DO documented in this encounterCity Hospital08-22-2023 NotePatient Outreach (ELPIDIO) DEYSI HERNANDEZ ([id number]) 1960 F Date Time Provider Department 10/09/22 ROSIE HARRIS During your visit today, we recorded the following information about you: Allergies As of Date: 10/09/2022 Noted Allergy Reaction CODEINE 09/07/2014 7 - Swelling Date Reviewed: 10/09/2022 Reviewed by: Rosie Harris DO - Fully Assessed Visit Diagnosis:Screening for genitourinary condition [Z13.89] Order(s):URINALYSIS, REFLEX MICROSCOPIC [FVU1585] Order #: [id number]. #:[id number] Prescriptions as of 10/12/2022 - lisinopril (ZESTRIL) [...] Mixed hyperlipidemia [E78.2] 10/09/2022 Encounter Status:Closed by Enablence TechnologiesMARYLINUSEHannah on 10/12/22[facility] 08-23-2022 NoteHNO ID: [id number] Author: Carine Farris RDMS Service: ? Author [...] Carine Farris RDMS August 23, 2022 2:23 [facility] NoteHNO ID: [id number] Author: Debra Fishman MD Service: ? Author Type: Physician Type: Progress Notes Filed: 08/09/2022 7:02 PM Note Text: 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 SERVICE DATE: 08/09/2022 [...] CKD, ESRD, hearing loss. She is a chcf smoker, currently 0.75 pack per day butsmoked [...] Staff, Department of Kidney Medicine Pager # [phone] August 09, 2022 6:58 PM documented in this encounterCity Hospital06-22-2023 NotePatient Outreach (ELPIDIO) DEYSI HERNANDEZ ([id number]) 1960 F Date Time Provider Department 08/09/22 DEBRA FISHMAN During your visit today, we recorded the following information about you: Allergies As of Date: 08/09/2022 Noted Allergy Reaction CODEINE 09/07/2014 7 - Swelling Date Reviewed: 08/09/2022 Reviewed by: Paulo Holbrook MA - Fully Assessed Visit Diagnosis:Screening for genitourinary condition [Z13.89] Order(s):URINALYSIS, REFLEX MICROSCOPIC [[id number]] Order #: [id number]. #:[id number] Prescriptions as of 08/13/2022 - aspirin, enteric [...] for malignant neoplasm *03/27/2016 Encounter Status:Closed by DOLLY, PRODUSER on 08/13/22[facility] 06-06-2022 Hospital Discharge instructions Patient Education [...] your health care provider. General instructions Take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
[2023-07-13 12:49] LABS: Hemoglobin 15.8 g/dL (12.0-16.0); Mean Corpuscular HGB Conc 33.6 g/dL (29.9-35.2); Mean Corpuscular Hemoglobin 30.9 pg (26.7-34.0); Mean Platelet Volume 10.1 fL (9.5-13.5); Platelet Count 225 10^3/uL (150-450); Red Blood Count 5.11 10^6/uL (4.20-5.40); Red Cell Distribution Width 12.9 % (11.0-15.0); White Blood Count 7.9 10^3/uL (4.0-11.0)
[2023-07-13 13:52] LABS: Bilirubin Urine NEGATIVE (NEGATIVE); Blood Urine NEGATIVE (NEGATIVE); Clarity Urine CLEAR (CLEAR); Color Urine LT. YELLOW (YELLOW); Glucose Urine UA NEGATIVE (NEGATIVE); Ketones Urine NEGATIVE (NEGATIVE); Leukocyte Esterase Urine NEGATIVE (NEGATIVE); Nitrite Urine NEGATIVE (NEGATIVE); Protein Urine NEGATIVE (NEG/TRACE); Specific Gravity Urine <=1.005 (1.005-1.025); Urobilinogen Urine 0.2 EU/dL (0.2-1.0)
[2023-07-13 15:11] LABS: Anion Gap 15.1; BUN Creatinine Ratio 15.6; Calcium 8.9 mg/dL (8.5-10.1); Carbon Dioxide 24.5 mmol/L (21.0-32.0); Chloride 103 mmol/L (98-107); Estimated GFR (African America 51 (>=60); Estimated GFR (Non-African Ame 42 (>=60); Glucose 91 mg/dL (74-106); Magnesium 1.9 mg/dL (1.8-2.4); Phosphorus 3.3 mg/dL (2.6-4.7); Potassium 4.6 mmol/L (3.5-5.1); Sodium 138 mmol/L (136-145)
[2023-07-13 17:34] LABS: Creatinine Urine Random <13.00 mg/dL (20.00-300.00); Microalbumin Urine Random <1.3 mg/dL (<=30.0)
[2023-07-14 13:06] LABS: PTH, Intact 88 pg/mL (15-65)
== END 2023-07-13 10:46 | disposition home or self-care (01) ==
LOC: LAB 10:45
PROVIDERS: PCP Internal Medicine
DX: N18.32 Chronic kidney disease, stage 3b (principal); E55.9 Vitamin D deficiency, unspecified
CPT/HCPCS: 36415; 80048; 81003; 82042; 82043; 82306; 82570; 83735; 83970; 84100; 85027

== ENCOUNTER 2023-08-04 14:43 | Emergency (ER) | payer OTHER, SELFPAY ==
[2023-08-04 14:52] VITALS: BP 171/103; PULSE 75; TEMP 36.6; O2SAT 92; BMI 26.6
--- OUTSIDE RECORDS SUMMARY | 2023-08-04 15:19 | XMS_ITS | CCD ---
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 Name Role Phone Unavailable Primary Care Provider Unavailabl e ALEXANDR AMIN S Referring Unavailable NO FAMILY, PHYSICIAN Primary Care Provider Unava ilMD Alaina Fernandez Admit Provider MD Marquez Beal Referring Provider DO Rober Wyatt Other Provider DO Ricky Reynoso Attending Provider [phone] STAN Hamm Janet Attending Provider DARVIN Byrne Attending Provider [phone] Linn Byrne Unavailable Shaikh Thompson Unavailable Unavailable Unavailable MD Nick Thompson Primary Care Provider [phone] MD Marquez Beal Attending Provider Emigdio PINON, [...] Nick Thompson Primary Care Provider MD Kevyn Sharma Attending Provider CHARLEE THOMPSONIKH Primary Care Physician Padmini Sam Unavailable Kevyn Sharma Unavailable [phone] FAWWAD, DUNBAR H Admitting Unavailable FAWWAD, DUNBAR [...] Care Unavailable EMIGDIO, DR SINGH Admitting Unavailable ANDRÉSUINN, DR SINGH Attending Unavailable DONNA, DUNBAR H Primary Care Unavailable GROVES ., DR JENNINGS Consulting Unavailable EMIGDIO, DR SINGH Consulting Unavailable DONNA, DUNBAR H Primary Care Unavailable PAY ., DR ESCOBEDO Admitting Unavailable PAY ., DR ESCOBEDO Attending Unavailable PAY ., DR ESCOBEDO Consulting Unavailable AMY ROSS Consulting Unavailable JUWAN, DR CHRISTOPHER Young Admitting Unavailable JUWAN, DR CHRISTOPHER Yonug Attending Unavailable REQUEST, DR GARCIA LISTED Primary Care Unavailkamini GUIDRY, DR CHRISTOPHER Young Consulting Unavailable MG ., DR CLEANING Consulting Unavailable GIOVANA MANN Consulting Unavailable FALVO, MAVIS Consulting Unavailable FAWWAD, DUNBAR H Admitting Unavailable FAWWAD, DUNBAR H Attending [facility]available [facility] Primary Care Un[facility] H Consulting Unavailable Donna FINNEY [facility] Primary Care Provider [phone] SHARAKOVA, DEBRA Referring Unavailable [facility] Primary Care Unavailable [facility] Referring Unavailable [facility] Primary Care Unavailable Unavailable Unavailable GURMEET OJEDA Attending Unavailable [facility], [facility] Primary Care Unavailable GURMEET OJEDA Attending Unavailable [facility], [facility] Referring Unavailable SARAH, [facility] Primary Care Unavailable MD Donna [facility] Primary Care Provider [phone] MD Jacques East Admit Provider MD Jacques East Attending Provider [phone] MD Marquez Beal Attending Provider MARQUEZ BEAL Attending Unavailable [facility], [facility] Primary Care Unavailable Taranr Obaydah M Admitting Unavailable TaranrGlenroyaydaenrique M Attending Unavailable [facility] Primary Care Unavailable Marquez Beal Admitting Unavail able Marquez Beal Attending Unavail able [facility], [facility] Primary Care Unavailable Damion Cheek Admitting Unavailable Damion Cheek Attending Unavailable [facility], [facility] Primary Care Unavailable Gabby De Oliveira Attending Unavailable Jaxson Johnson Attending Unavailable [facility], [facility] Primary Care Unavailable Damion Cheek Attending Unavailable [facility], [facility] Primary Care Unavailable [facility], [facility] Referring Unavailable Jamie BILLS Attending Unavailable [facility], [facility] Primary Care Unavailable TRUDY ADRIAN Attending Unavailable TRUDY ADRIAN Attending Unavailable [facility], [facility] Primary Care Unavailable NGUYỄNTRUDY GAINES Attending Unavailable [facility], [facility] Primary Care Unavailable TRUDY ADRIAN Attending Unavailable [facility], [facility] Primary Care Unavailable TRUDY ADRIAN Attending Unavailable CHARLEE THOMPSONIKH Primary Care Unavailable DONNA DUNBAR Primary Care Unavailable Bj TEJEDA Attending Unavailable TRUDY ADRIAN Attending Unavailable Jaxson Johnson Admitting Unavailable Jaxson Johnson Attending Unavailable SHAIKH THOMPSON Attending Unavailable SHAIKH THOMPSON Attending Unavailable ROSIE BLANCHARD Attending Unavailable ROSIE BLANCHARD Attending Unavailable SHAIKH THOMPSON Attending Unavailable SHAIKH THOMPSON Attending Unavailable Allergies Allergy Classification Reported Allergen(s) Allergy Type Date of Onset Reaction(s) Facility (20 sources) Codeine; Translations: [CODEINE] Drug Allergy 5 Swelling, Swelling (finding) [facility] (1 source) Codeine Drug Allergy 2 [facility] Repository Medications Current Medications Medication Drug Class(es) [...] day(s), # 14 cap(s), Refills(s) 0, Pharmacy: [facility]/pharmacy #[id number], 163, cm, 02/10/23 14:52:00 EST, Height/Length [...] day(s), # 21 cap(s), Refills(s) 0, Pharmacy: [facility]/pharmacy #[id number], 163, cm, 10/15/22 17:40:00 EDT, Height/Length [...] Daily, # 30 cap(s), Refills(s) 2, Pharmacy: [facility] [id number], 163, cm, 06/14/22 13:00:00 EDT, Height/Length Dosing, [...] day(s), # 15 tab(s), Refills(s) 0, Pharmacy: [facility]/pharmacy #[id number], 163, cm, 02/10/23 14:52:00 EST, Height/Length [...] 03-12-2023 AST [Catalytic activity/Vol] 20 U/L Normal [facility] Comment on above: Order Comment: PT FA STED 121 HOURS Performed By: #### A ST, LIPID, BMP #### [address] Aspartate aminotransferase [ Enzymatic activity/volume] in Serum or PlasmaOrdered By: Marquez Beal on 03-12-2023 AST [Catalytic activity/Vol] 20 U/L [facility] Basic Metabolic Panelon 02-19 Anion gap [Moles/Vol] 8.4 mmol/L Normal 6.0-15.0 [facility] Comment on above: Order Comment: PT FA STED 121 HOURS Performed By: #### A ST, LIPID, BMP #### [facility] [address] [place] [id number] [place] Calcium [Mass/Vol] 9.8 mg/dL Normal 8.6-10.3 [facility] Comment on above: Order Comment: PT FA STED 121 HOURS Performed By: #### A ST, LIPID, BMP #### [facility] [address] [place] [id number] [place] Chloride [Moles/Vol] 108 mmol/L High 98-107 [facility] Comment on above: Order Comment: PT FA STED 121 HOURS Performed By: #### A ST, LIPID, BMP #### [facility] [address] [place] [address] [place] CO2 [Moles/Vol] 30.0 mmol/L Normal 21.0-31.0 [facility] Comment on above: Order Comment: PT FA STED 121 HOURS Performed By: #### A ST, LIPID, BMP #### [facility] [address] [place] [address] [place] Creatinine [Mass/Vol] 1.39 mg/dL High 0.60-1.20 [facility] Comment on above: Order Comment: PT FA STED 121 HOURS Performed By: #### A ST, LIPID, BMP #### [facility] [address] [place] [address] [place] GFR/1.73 sq M.predicted MDRD (S/P/Bld) [Vol rate/Area] 43.442 mL/min/{1.73_m2} Normal [facility] Comment on above: Order Comment: PT FA STED 121 HOURS Performed By: #### A ST, LIPID, BMP #### [facility] [address] [place] [id number] [place] Glucose [Mass/Vol] 93 mg/dL Normal 70-100 [facility] Comment on above: Order Comment: PT FA STED 121 HOURS Result Comment: [place] om Glucose Reference Range is dependent on time and content of last meal. Glucose of more than 200 mg/dL in a nonstressed, ambulatory subject supports the diagnosis of Diabetes Mellitus. ADA recommended reference range Performed By: #### A ST, LIPID, BMP #### [facility] [address] [place] [id number] [place] Potassium [Moles/Vol] 5.4 mmol/L High 3.5-5.1 [facility] Comment on above: Order Comment: PT FA STED 121 HOURS Performed By: #### A ST, LIPID, BMP #### [facility] [address] [place] [address] [place] Sodium [Moles/Vol] 141 mmol/L Normal 136-145 [facility] Comment on above: Order Comment: PT FA STED 121 HOURS Performed By: #### A ST, LIPID, BMP #### [facility] [address] [place] [id number] [place] Urea nitrogen [Mass/Vol] 18 mg/dL Normal 7-25 [facility] Comment on above: Order Comment: PT FA STED 121 HOURS Performed By: #### A ST, LIPID, BMP #### [facility] [address] [place] [address] [place] Calcium [Mass/volume] in Ser um or PlasmaOrdered By: Marquez Beal on 03-12-2023 Calcium [Mass/Vol] 9.8 mg/dL 8.6-10.3 [facility] Carbon dioxide, total [Moles /volume] in Serum or PlasmaOrdered By: Marquez Beal on 03-12-2023 CO2 [Moles/Vol] 30.0 mmol/L 21.0-31.0 [facility] Chloride [Moles/volume] in S oralia or PlasmaOrdered By: Marquez Beal on 03-12-2023 Chloride [Moles/Vol] 108 mmol/L 98-107 [facility] Cholesterol [Mass/volume] in Serum or PlasmaOrdered By: Marquez Beal on 03-12-2023 Cholesterol [Mass/Vol] 171 mg/dL 140-200 [facility] Comment on above: Chol less than 200 m g/dl low riskChol 201-239 mg/dl borderline riskChol 240 mg/dl and greater high risk Cholesterol in LDL Calc [Mas s/Vol]Ordered By: Marquez Beal on 03-12-2023 Cholesterol in LDL [Mass/Vol] 93 mg/dL 0-100 [facility] Comment on above: LDL ATP III CLASSIFI CATIONLDL less than 100 mg/dL OptimalLDL 100-129 mg/dL Near or above optimalLDL 130-159 mg/dL Borderline highLDL 160-189 mg/dL HighLDL greater than 189 mg/dL Very high Cholesterol in VLDL Calc [Ma ss/Vol]Ordered By: Marquez Beal on 03-12-2023 Cholesterol in VLDL [Mass/Vol] 33 mg/dL [facility] Creatinine [Mass/volume] in Serum or PlasmaOrdered By: Marquez Beal on 03-12-2023 Creatinine [Mass/Vol] 1.39 mg/dL 0.60-1.20 [facility] Glucose [Mass/volume] in Ser um or PlasmaOrdered By: Marquez Beal on 03-12-2023 Glucose [Mass/Vol] 93 mg/dL 70-100 [facility] Comment on above: ADA recommended refe rence rangeRandom Glucose Reference Range is dependent on time and content of last meal. Glucose of more than 200 mg/dL in a nonstressed, ambulatory subject supports the diagnosis of Diabetes Mellitus. Lipid Panelon 03-12-2023 Cholesterol [Mass/Vol] 171 mg/dL Normal 140-200 [facility] Comment on above: Order Comment: PT FA STED 121 HOURS Result Comment: Chol less than 200 mg/dl low risk Chol 201-239 mg/dl borderline risk Chol 240 mg/dl and greater high risk Performed By: #### A ST, LIPID, BMP #### [facility] [address] [place] [id number] [place] Cholesterol in HDL [Mass/Vol] 45 mg/dL Normal 23-92 [facility] Comment on above: Order Comment: PT FA STED 121 HOURS Result Comment: HDL CHOL ATP-III CLASSIFICATION Cardiovascular Risk HDL > or equal to 60 mg/dL LOW HDL < 40 mg/dL HIGH Performed By: #### A ST, LIPID, BMP #### [facility] [address] [place] [address] [place] Cholesterol.total/Chol esterol in HDL [Mass ratio] 3.8 {ratio} Normal <5.0 [facility] Comment on above: Order Comment: PT FA STED 121 HOURS Result Comment: PERF ORMED BY: [place] [address] PATHOLOGIST PATIENT FINANCIAL SERVICES SPECIALIST JERAMY CALDWELL M.D. Performed By: #### A ST LIPID, BMP #### [facility] [address] [place] [address] LDL Cholesterol,Calculated 93 mg/dL Normal 0-100 [facility] Comment on above: Order Comment: PT FA STED 121 HOURS Result Comment: LDL ATP III CLASSIFICATION LDL less than 100 mg/dL Optimal LDL 100-129 mg/dL Near or above optimal LDL 130-159 mg/dL Borderline high LDL 160-189 mg/dL High LDL greater than 189 mg/dL Very high Performed By: #### A ST LIPID, BMP #### [facility] [address] [place] [address] Triglyceride w/Reflex 165 mg/dL High 0-149 [facility] Comment on above: Order Comment: PT FA STED 121 HOURS Result Comment: TRIG ATP III CLASSIFICATION TRIG less than 150 mg/dL Normal TRIG 150-199 mg/dL Borderline high TRIG 200-500 mg/dL High TRIG greater than 500 mg/dL Very high Standard traceable to the Center for Disease Conrtrol and Prevention (CDC) test method. Performed By: #### A ST LIPID, BMP #### [facility] [address] [place] [address] VLDL CHOLESTEROL 33 mg/dL Normal [facility] Comment on above: Order Comment: PT FA STED 121 HOURS Performed By: #### A ST LIPID, BMP #### [facility] [address] [place] [address] No Panel InformationOrdered By: Marquez Beal on 03-12-2023 Estimated GFR (CKD-EPI) 43.442 mL/Min [facility] Creatinine Clearance (Chem N/A [facility] Potassium [Moles/volume] in Serum or PlasmaOrdered By: Marquez Beal on 03-12-2023 Potassium [Moles/Vol] 5.4 mmol/L 3.5-5.1 [facility] Serum or plasma anion gap de terminationOrdered By: Marquez Beal on 03-12-2023 Anion gap [Moles/Vol] 8.4 mmol/L 6.0-15.0 [facility] Serum or plasma high density lipoprotein (HDL) cholesterol measurementOrdered By: Marquez Beal on 03-12-2023 Cholesterol in HDL [Mass/Vol] 45 mg/dL [facility] Comment on above: HDL CHOL ATP-III CLA SSIFICATION Cardiovascular RiskHDL > or equal to 60 mg/dL LOWHDL < 40 mg/dL HIGH Serum or plasma total choles terol/high density lipoprotein (HDL) cholesterol mass ratOrdered By: Marquez Beal on 03-12-2023 Cholesterol.total/Chol esterol in HDL [Mass ratio] 3.8 {ratio} <5.0 [facility] Sodium [Moles/volume] in Ser um or PlasmaOrdered By: Marquez Beal on 03-12-2023 Sodium [Moles/Vol] 141 mmol/L 136-145 [facility] Triglyceride [Mass/volume] i n Serum or PlasmaOrdered By: Marquez Beal on 03-12-2023 Triglyceride [Mass/Vol] 165 mg/dL 0-149 [facility] Comment on above: TRIG ATP III CLASSIF ICATIONTRIG less than 150 mg/dL NormalTRIG 150-199 mg/dL Borderline highTRIG 200-500 mg/dL High TRIG greater than 500 mg/dL Very highStandard traceable to the Center for Disease Conrtrol and Prevention (CDC) test method. Urea nitrogen [Mass/volume] in Serum or PlasmaOrdered By: Marquez Beal on 03-12-2023 Urea nitrogen [Mass/Vol] 18 mg/dL 09-11 [facility] Basic Metabolic Panelon 12-2 Anion gap [Moles/Vol] 12.2 mmol/L Normal 6.0-15.0 [facility] Comment on above: Performed By: #### C JUANITA, BMP ####[facility] [address] [place] [address] [facility] Calcium [Mass/Vol] 9.4 mg/dL Normal 8.6-10.3 [facility] Comment on above: Performed By: #### C JUANITA, BMP ####[facility] [address] [place] [address] [facility] Chloride [Moles/Vol] 103 mmol/L Normal 98-107 [facility] Comment on above: Performed By: #### C JUANITA, BMP ####[place] [address] [place] [id number] [facility] CO2 [Moles/Vol] 26.2 mmol/L Normal 21.0-31.0 [facility] Comment on above: Performed By: #### C BC, BMP ####[place] [address] [place] [id number] [facility] Creatinine [Mass/Vol] 1.35 mg/dL High 0.60-1.20 [facility] Comment on above: Performed By: #### C JUANITA, BMP ####[place] [address] [place] [id number] [facility] Creatinine Clr Calc Pharmacy 40.59 [facility] Comment on above: Result Comment: PERF ORMED BY: [facility] [address] [place] [id number] PATHOLOGIST PATIENT FINANCIAL SERVICES SPECIALIST JERAMY CALDWELL M.D. Performed By: #### C JUANITA, BMP ####[place] [address] [address] GFR/1.73 sq M.predicted MDRD (S/P/Bld) [Vol rate/Area] 44.991 mL/min/{1.73_m2} [facility] Comment on above: Performed By: #### C JUANITA, BMP ####[place] [address] [place] [id number] [facility] Glucose [Mass/Vol] 136 mg/dL High 70-100 [facility] Comment on above: Result Comment: [place] om Glucose Reference Range is dependent on time and content of last meal. Glucose of more than 200 mg/dL in a nonstressed, ambulatory subject supports the diagnosis of Diabetes Mellitus. ADA recommended reference range Performed By: #### C BC, BMP ####[place] [address] [place] [id number] [facility] Potassium [Moles/Vol] 5.4 mmol/L High 3.5-5.1 [facility] Comment on above: Performed By: #### C BC, BMP ####[facility] [place] [address] [facility] Sodium [Moles/Vol] 136 mmol/L Normal 136-145 [facility] Comment on above: Performed By: #### C BC, BMP ####[facility] [address] [place] [address] [facility] Urea nitrogen [Mass/Vol] 33 mg/dL High 7-25 [facility] Comment on above: Performed By: #### C BC, BMP ####[facility] [address] [place] [address] [facility] Basophils Auto (Bld) [#/Vol] Ordered By: Obpatriciadah Daromar on 02-14-2023 Basophils (Bld) [#/Vol] 0.0 10*3/uL 0.0-0.2 [facility] Basophils/100 WBC Auto (Bld) Ordered By: Obaydah Daromar on 02-14-2023 Basophils/100 WBC (Bld) 0.1 % . [facility] Calcium [Mass/volume] in Ser um or PlasmaOrdered By: Obaydah Daromar on 02-14-2023 Calcium [Mass/Vol] 9.4 mg/dL 8.6-10.3 [facility] Carbon dioxide, total [Moles /volume] in Serum or PlasmaOrdered By: Obaydah Daromar on 02-14-2023 CO2 [Moles/Vol] 26.2 mmol/L 21.0-31.0 [facility] Chloride [Moles/volume] in S oralia or PlasmaOrdered By: Obaydah Daromar on 02-14-2023 Chloride [Moles/Vol] 103 mmol/L 98-107 [facility] Complete Blood Count Auto Di ffon 02-14-2023 Basophils (Bld) [#/Vol] 0.0 10*3/uL Normal 0.0-0.2 [facility] Comment on above: Result Comment: PERF ORMED BY: [facility] [address] [place] [address] PATHOLOGIST PATIENT FINANCIAL SERVICES SPECIALIST JERAMY CALDWELL M.D. Performed By: #### C BC, BMP ####[address] [place] [address] [facility] Basophils/100 WBC (Bld) 0.1 % Normal . [facility] Comment on above: Performed By: #### C BC, BMP ####[address] [place] [address] [facility] Eosinophils (Bld) [#/Vol] 0.0 10*3/uL Normal 0.0-0.45 [facility] Comment on above: Performed By: #### C BC, BMP ####[place] [address] [place] [id number] [facility] Eosinophils/100 WBC (Bld) 0.0 % Normal . [facility] Comment on above: Performed By: #### C BC, BMP ####[place] [address] [place] [id number] [facility] Erythrocyte distribution width (RBC) [Ratio] 14.6 % Normal 11.9-15.3 [facility] Comment on above: Performed By: #### C BC, BMP ####[place] [address] [place] [id number] [facility] Hematocrit (Bld) [Volume fraction] 44.5 % Normal 34.0-46.4 [facility] Comment on above: Performed By: #### C BC, BMP ####[address] [address] [facility] Hemoglobin (Bld) [Mass/Vol] 15.1 g/dL Normal 11.8-15.4 [facility] Comment on above: Performed By: #### C BC, BMP ####[address] [place] [address] [place] Lymphocytes (Bld) [#/Vol] 1.0 10*3/uL Normal 1.00-4.8 [facility] Comment on above: Performed By: #### C BC, BMP ####[address] [place] [address] [facility] Lymphocytes/100 WBC (Bld) 7.6 % Normal . [facility] Comment on above: Performed By: #### C BC, BMP ####[address] [place] [address] [facility] MCH (RBC) [Entitic mass] 30.6 pg Normal 24.7-34.3 [facility] Comment on above: Performed By: #### C BC, BMP ####[place] [id number] [facility] MCV (RBC) [Entitic vol] 90.4 fL Normal 80-100 [facility] Comment on above: Performed By: #### C BC, BMP ####[address] [place] [address] [facility] Mean Corpuscular HGB Conc 33.9 g/dL Normal 32.0-35.0 [facility] Comment on above: Performed By: #### C BC, BMP ####[place] [id number] [facility] Monocytes (Bld) [#/Vol] 0.6 10*3/uL Normal 0.0-0.8 [facility] Comment on above: Performed By: #### C BC, BMP ####[place] [id number] [facility] Monocytes/100 WBC (Bld) 4.7 % Normal . [facility] Comment on above: Performed By: #### C BC, BMP ####[place] [id number] [facility] Neutrophils (Bld) [#/Vol] 11.1 10*3/uL High 1.8-7.7 [facility] Comment on above: Performed By: #### C BC, BMP ####[place] [id number] [facility] Neutrophils/100 WBC (Bld) 87.6 % Normal . [facility] Comment on above: Performed By: #### C BC, BMP ####[place] [id number] [facility] NRBC% 0.0 /100{WBC} Normal 0-0.5 [facility] Comment on above: Performed By: #### C JUANITA, BMP ####[address] [place] [address] [facility] Platelet mean volume (Bld) [Entitic vol] 8.5 fL Normal 6.3-10.7 [facility] Comment on above: Performed By: #### C JUANITA, BMP ####[place] [place] [address] [facility] Platelets (Bld) [#/Vol] 220 10*3/uL Normal 150-450 [facility] Comment on above: Performed By: #### C JUANITA, BMP ####[address] [address] [facility] RBC (Bld) [#/Vol] 4.92 10*6/uL Normal 3.60-5.00 [facility] Comment on above: Performed By: #### C JUANITA, BMP ####[address] [address] [facility] WBC (Bld) [#/Vol] 12.7 10*3/uL High 3.8-11.6 [facility] Comment on above: Performed By: #### C JUANITA, BMP ####[place] [id number] [facility] Creatinine [Mass/volume] in Serum or PlasmaOrdered By: Jaraddaenrique Talbotomar on 02-14-2023 Creatinine [Mass/Vol] 1.35 mg/dL 0.60-1.20 [facility] Eosinophils Auto (Bld) [#/Vo l]Ordered By: Obaydah Daromar on 02-14-2023 Eosinophils (Bld) [#/Vol] 0.0 10*3/uL 0.0-0.45 [facility] Eosinophils/100 WBC Auto (Bl d)Ordered By: Obaydah Daromar on 02-14-2023 Eosinophils/100 WBC (Bld) 0.0 % . [facility] Erythrocyte distribution wid th Auto (RBC) [Ratio]Ordered By: Obpatriciadah Antioneomar on 02-14-2023 Erythrocyte distribution width (RBC) [Ratio] 14.6 % 11.9-15.3 [facility] Glucose [Mass/volume] in Ser um or PlasmaOrdered By: Jacques Chirinosr on 02-14-2023 Glucose [Mass/Vol] 136 mg/dL 70-100 [facility] Comment on above: ADA recommended refe rence rangeRandom Glucose Reference Range is dependent on time and content of last meal. Glucose of more than 200 mg/dL in a nonstressed, ambulatory subject supports the diagnosis of Diabetes Mellitus. Hematocrit Auto (Bld) [Volum e fraction]Ordered By: Jacques East on 02-14-2023 Hematocrit (Bld) [Volume fraction] 44.5 % 34.0-46.4 [facility] Hemoglobin [Mass/volume] in BloodOrdered By: Jacques Chirinosr on 02-14-2023 Hemoglobin (Bld) [Mass/Vol] 15.1 g/dL 11.8-15.4 [facility] Leukocytes [#/volume] correc elliot for nucleated erythrocytes in Blood by Automated counOrdered By: Jacques East on 02-14-2023 WBC corrected for nucl RBC Auto (Bld) [#/Vol] 12.7 10*3/uL 3.8-11.6 [facility] Lymphocytes Auto (Bld) [#/Vo l]Ordered By: [facility] Antioneomar on 02-14-2023 Lymphocytes (Bld) [#/Vol] 1.0 10*3/uL 1.00-4.8 [facility] Lymphocytes/100 WBC Auto (Bl d)Ordered By: reinaldo Chirinosr on 02-14-2023 Lymphocytes/100 WBC (Bld) 7.6 % . [facility] MCH Auto (RBC) [Entitic mass ]Ordered By: Jacques Chirinosr on 02-14-2023 MCH (RBC) [Entitic mass] 30.6 pg 24.7-34.3 [facility] MCHC Auto (RBC) [Mass/Vol]Or dered By: Jacques Talbotomar on 02-14-2023 MCHC (RBC) [Mass/Vol] 33.9 g/dL 32.0-35.0 [facility] [facility] Auto (RBC) [Entitic vol] Ordered By: Obpatriciadaenrique Talbotomar on 02-14-2023 MCV (RBC) [Entitic vol] 90.4 fL 80-100 [facility] Monocytes Auto (Bld) [#/Vol] Ordered By: Obpatriciadaenrique Daromar on 02-14-2023 Monocytes (Bld) [#/Vol] 0.6 10*3/uL 0.0-0.8 [facility] Monocytes/100 WBC Auto (Bld) Ordered By: Obpatriciadah Antioneomar on 02-14-2023 Monocytes/100 WBC (Bld) 4.7 % . [facility] Neutrophils Auto (Bld) [#/Vo l]Ordered By: Obreinaldo Talbotomar on 02-14-2023 Neutrophils (Bld) [#/Vol] 11.1 10*3/uL 1.8-7.7 [facility] Neutrophils/100 WBC Auto (Bl d)Ordered By: Obpatriciadaenrique Talbotomar on 02-14-2023 Neutrophils/100 WBC (Bld) 87.6 % . [facility] No Panel InformationOrdered By: Jacques Talbotomar on 02-14-2023 Estimated GFR (CKD-EPI) 44.991 mL/Min [facility] Creatinine Clearance (Chem 40.59 [facility] Nucleated erythrocytes [Pres ence] in Blood by Automated countOrdered By: Jacques Talbotomar on 02-14-2023 Nucleated RBC Auto Ql (Bld) 0.0 /100{WBC} 0-0.5 [facility] Platelet mean volume Auto (B ld) [Entitic vol]Ordered By: Obpatriciadaenrique Talbotomar on 02-14-2023 Platelet mean volume (Bld) [Entitic vol] 8.5 fL 6.3-10.7 [facility] Platelets Auto (Bld) [#/Vol] Ordered By: Obpatriciadaenrique Talbotomar on 02-14-2023 Platelets (Bld) [#/Vol] 220 10*3/uL 150-450 [facility] Potassium [Moles/volume] in Serum or PlasmaOrdered By: Obpatriciadaenrique Talbotomar on 02-14-2023 Potassium [Moles/Vol] 5.4 mmol/L 3.5-5.1 [facility] RBC Auto (Bld) [#/Vol]Ordere d By: Obpatriciadah Daromar on 02-14-2023 RBC (Bld) [#/Vol] 4.92 10*6/uL 3.60-5.00 [facility] Serum or plasma anion gap de terminationOrdered By: Obaydah Daromar on 02-14-2023 Anion gap [Moles/Vol] 12.2 mmol/L 6.0-15.0 [facility] Sodium [Moles/volume] in Ser um or PlasmaOrdered By: Obaydah Daromar on 02-14-2023 Sodium [Moles/Vol] 136 mmol/L 136-145 [facility] Urea nitrogen [Mass/volume] in Serum or PlasmaOrdered By: Obaydah Daromar on 02-14-2023 Urea nitrogen [Mass/Vol] 33 mg/dL 7-25 [facility] WBC Auto (Bld) [#/Vol]Ordere d By: Obaydah Daromar on 02-14-2023 WBC (Bld) [#/Vol] 12.7 10*3/uL 3.8-11.6 [facility] Alanine aminotransferase [En zymatic activity/volume] in Serum or PlasmaOrdered By: Obpatriciadah Daromar on 02-13-2023 ALT [Catalytic activity/Vol] 16 U/L 7-52 [facility] Albumin [Mass/volume] in Ser um or Plasma by Bromocresol green (BCG) dye binding methoOrdered By: Obaydah Daromar on 02-13-2023 Albumin BCG dye [Mass/Vol] 4.0 g/dL 3.5-5.7 [facility] Alkaline phosphatase [Enzyma tic activity/volume] in Serum or PlasmaOrdered By: Obaydah Daromar on 02-13-2023 ALP [Catalytic activity/Vol] 57 U/L 34-104 [facility] Aspartate aminotransferase [ Enzymatic activity/volume] in Serum or PlasmaOrdered By: Obaydah Daromar on 02-13-2023 AST [Catalytic activity/Vol] 22 U/L 13-39 [facility] Bilirubin.total [Mass/volume ] in Serum or PlasmaOrdered By: Jacques East on 02-13-2023 Bilirubin [Mass/Vol] 0.6 mg/dL 0.3-1.0 [facility] Complete Blood Count Auto Di ffon 02-13-2023 Basophils (Bld) [#/Vol] 0.0 10*3/uL Normal 0.0-0.2 [facility] Comment on above: Result Comment: PERF ORMED BY: [facility] [address] [place] [address] PATHOLOGIST PATIENT FINANCIAL SERVICES SPECIALIST JERAMY CALDWELL M.D. Performed By: #### C JUANITA MG, CMP ####[place] [id number] [address] Basophils/100 WBC (Bld) 0.2 % Normal . [facility] Comment on above: Performed By: #### C BC MG, CMP ####[place] [id number] [place] [id number] [facility] Eosinophils (Bld) [#/Vol] 0.0 10*3/uL Normal 0.0-0.45 [facility] Comment on above: Performed By: #### C BC MG, CMP ####[address] Eosinophils/100 WBC (Bld) 0.0 % Normal . [facility] Comment on above: Performed By: #### C BC MG, CMP ####[place] [id number] [place] [id number] [facility] Erythrocyte distribution width (RBC) [Ratio] 14.4 % Normal 11.9-15.3 [facility] Comment on above: Performed By: #### C BC MG, CMP ####[place] [id number] [place] [id number] [facility] Hematocrit (Bld) [Volume fraction] 43.2 % Normal 34.0-46.4 [facility] Comment on above: Performed By: #### C BC MG, CMP ####[address] Hemoglobin (Bld) [Mass/Vol] 14.6 g/dL Normal 11.8-15.4 [facility] Comment on above: Performed By: #### C BC, MG, CMP ####[address] Lymphocytes (Bld) [#/Vol] 2.7 10*3/uL Normal 1.00-4.8 [facility] Comment on above: Performed By: #### C BC, MG, CMP ####[place] [id number] [facility] Lymphocytes/100 WBC (Bld) 18.3 % Normal . [facility] Comment on above: Performed By: #### C BC, MG, CMP ####[address] MCH (RBC) [Entitic mass] 30.5 pg Normal 24.7-34.3 [facility] Comment on above: Performed By: #### C BC, MG, CMP ####[place] [id number] [facility] MCV (RBC) [Entitic vol] 90.1 fL Normal 80-100 [facility] Comment on above: Performed By: #### C BC, MG, CMP ####[place] [id number] [facility] Mean Corpuscular HGB Conc 33.8 g/dL Normal 32.0-35.0 [facility] Comment on above: Performed By: #### C BC, MG, CMP ####[place] [id number] [facility] Monocytes (Bld) [#/Vol] 1.2 10*3/uL High 0.0-0.8 [facility] Comment on above: Performed By: #### C BC, MG, CMP ####[place] [id number] [facility] Monocytes/100 WBC (Bld) 7.9 % Normal . [facility] Comment on above: Performed By: #### C BC, MG, CMP ####[address] Neutrophils (Bld) [#/Vol] 11.0 10*3/uL High 1.8-7.7 [facility] Comment on above: Performed By: #### C BC, MG, CMP ####[place] [id number] [facility] Neutrophils/100 WBC (Bld) 73.6 % Normal . [facility] Comment on above: Performed By: #### C BC, MG, CMP ####[address] NRBC% 0.1 /100{WBC} Normal 0-0.5 [facility] Comment on above: Performed By: #### C BC, MG, CMP ####[address] Platelet mean volume (Bld) [Entitic vol] 7.8 fL Normal 6.3-10.7 [facility] Comment on above: Performed By: #### C BC, MG, CMP ####[place] [id number] [facility] Platelets (Bld) [#/Vol] 212 10*3/uL Normal 150-450 [facility] Comment on above: Performed By: #### C BC, MG, CMP ####[place] [id number] [facility] RBC (Bld) [#/Vol] 4.80 10*6/uL Normal 3.60-5.00 [facility] Comment on above: Performed By: #### C BC, MG, CMP ####[place] [id number] [facility] WBC (Bld) [#/Vol] 14.9 10*3/uL High 3.8-11.6 [facility] Comment on above: Performed By: #### C BC, MG, CMP ####[place] [id number] [facility] Comprehensive Metabolic Pane franco 12-27-2023 Albumin [Mass/Vol] 4.0 g/dL Normal 3.5-5.7 [facility] Comment on above: Performed By: #### C JUANITA MG, CMP ####[place] [id number] [place] [phone] [facility] Albumin/Globulin [Mass ratio] 1.6 {ratio} Normal [facility] Comment on above: Performed By: #### C JUANITA MG, CMP ####[place] [id number] [place] [phone] [facility] ALP [Catalytic activity/Vol] 57 U/L Normal 34-104 [facility] Comment on above: Performed By: #### C JUANITA MG, CMP ####[place] [id number] [place] [phone] [facility] ALT [Catalytic activity/Vol] 16 U/L Normal 7-52 [facility] Comment on above: Performed By: #### C JUANITA MG, CMP ####[place] [id number] [facility] Anion gap [Moles/Vol] 9.4 mmol/L Normal 6.0-15.0 [facility] Comment on above: Performed By: #### C JUANITA MG, CMP ####[place] [id number] [facility] AST [Catalytic activity/Vol] 22 U/L Normal 13-39 [facility] Comment on above: Performed By: #### C JUANITA MG, CMP ####[place] [id number] [facility] Bilirubin [Mass/Vol] 0.6 mg/dL Normal 0.3-1.0 [facility] Comment on above: Performed By: #### C BC MG, CMP ####[place] [id number] [facility] Calcium [Mass/Vol] 9.2 mg/dL Normal 8.6-10.3 [facility] Comment on above: Performed By: #### C BC MG, CMP ####[address] [address] [place] Chloride [Moles/Vol] 105 mmol/L Normal 98-107 [facility] Comment on above: Performed By: #### C BC MG, CMP ####[address] CO2 [Moles/Vol] 27.1 mmol/L Normal 21.0-31.0 [facility] Comment on above: Performed By: #### C BC MG, CMP ####[address] Creatinine [Mass/Vol] 1.45 mg/dL High 0.60-1.20 [facility] Comment on above: Performed By: #### C BC MG, CMP ####[address] Creatinine Clr Calc Pharmacy 37.90 [facility] Comment on above: Performed By: #### C BC MG, CMP ####[address] GFR/1.73 sq M.predicted MDRD (S/P/Bld) [Vol rate/Area] 41.294 mL/min/{1.73_m2} [facility] Comment on above: Performed By: #### C BC MG, CMP ####[address] Globulin (S) [Mass/Vol] 2.5 g/dL [facility] Comment on above: Performed By: #### C BC, MG, CMP ####[address] Glucose [Mass/Vol] 92 mg/dL Normal 70-100 [facility] Comment on above: Result Comment: [place] Glucose Reference Range is dependent on time and content of last meal. Glucose of more than 200 mg/dL in a nonstressed, ambulatory subject supports the diagnosis of Diabetes Mellitus. ADA recommended reference range Performed By: #### C BC, MG, CMP ####[address] Potassium [Moles/Vol] 4.5 mmol/L Normal 3.5-5.1 [facility] Comment on above: Performed By: #### C BC, MG, CMP ####[place] [id number] [place] [phone] [facility] Protein [Mass/Vol] 6.5 g/dL Normal 6.4-8.9 [facility] Comment on above: Performed By: #### C BC, MG, CMP ####[place] [id number] [place] [phone] [facility] Sodium [Moles/Vol] 137 mmol/L Normal 136-145 [facility] Comment on above: Performed By: #### C BC, MG, CMP ####[place] [id number] [address] Urea nitrogen [Mass/Vol] 28 mg/dL High 7-25 [facility] Comment on above: Performed By: #### C BC, MG, CMP ####[place] [address] [place] [phone] [facility] Globulin Calc (S) [Mass/Vol] Ordered By: Obpatriciadah Daromar on 02-13-2023 Globulin (S) [Mass/Vol] 2.5 g/dL [facility] Magnesiumon 02-13-2023 Magnesium [Mass/Vol] 1.8 mg/dL Low 1.9-2.7 [facility] Comment on above: Result Comment: PERF ORMED BY: [facility] [address] [place] [address] PATHOLOGIST PATIENT FINANCIAL SERVICES SPECIALIST JERAMY CALDWELL M.D. Performed By: #### C BC, MG, CMP ####[place] [id number] [place] [phone] [facility] Magnesium [Mass/volume] in S oralia or PlasmaOrdered By: Obaydah Daromar on 02-13-2023 Magnesium [Mass/Vol] 1.8 mg/dL 1.9-2.7 [facility] Protein [Mass/volume] in Ser um or PlasmaOrdered By: Obaydah Daromar on 02-13-2023 Protein [Mass/Vol] 6.5 g/dL 6.4-8.9 [facility] Serum or plasma albumin/glob ulin mass ratioOrdered By: Jacques East on 02-13-2023 Albumin/Globulin [Mass ratio] 1.6 {ratio} [facility] Activated partial thrombopla stin time (aPTT) in platelet poor plasma by coagulation aOrdered By: Sally Valle on 02-12-2023 aPTT Coag (PPP) [Time] 25.6 s 25.1-36.5 [facility] Comment on above: A hematocrit value g reater than 55% may lead to inaccurate results in coagulation testing. Patients having hematocrit values >55% require a special collection tube for coagulation studies. Please contact the laboratory at [phone] for redraw instructions. Aerobic Cultureon 02-12-2023 Aerobic Culture Light Normal Respira tory Zoe 2 Days Gram Stain Result Rare Epithelial Cells 1+ White Blood Cells Rare Gram Positive Coccobacilli PERFORMED BY: [place] [address] PATHOLOGIST PATIENT FINANCIAL SERVICES SPECIALIST JERAMY CALDWELL M.D. Normal [facility] Comment on above: Performed By: #### A HANNAH #### [address] Auth for Release of Medical Recordson 02-12-2023 Auth for Release of Medical Records [id number] Normal [facility] Automated erythrocytes count in urine sediment (number/area)Ordered By: Jacques East on 02-12-2023 RBC Auto (Urine sed) [#/Area] 1-2 [HPF] 0-4 [facility] Automated leukocytes count i n urine sediment (number/area)Ordered By: Jacques East on 02-12-2023 WBC Auto (Urine sed) [#/Area] 3-4 [HPF] 0-4 [facility] Bilirubin Test strip Ql (U)O rdered By: Jacques East on 02-12-2023 Bilirubin Ql (U) Negative Negative [facility] C Urineon 02-12-2023 Bacteria identified Cx [...] Locations R1: This test was performed at: [facility], [address] [place] [address], [id number] , [place], Normal [facility] Comment on above: Performed By: #### 2 [id number] ####[facility] [address] [place] [address] Coagulation Profileon 2022 aPTT Coag (Bld) [Time] 25.6 s Normal 25.1-36.5 [facility] Comment on above: Result Comment: A he matocrit value greater than 55% may lead to inaccurate results in coagulation testing. Patients having hematocrit values >55% require a special collection tube for coagulation studies. Please contact the laboratory at [phone] for redraw instructions. PERFORMED BY: [facility] [address] [facility] [place] [address] PATHOLOGIST PATIENT FINANCIAL SERVICES SPECIALIST JERAMY CALDWELL M.D. Performed By: #### C JUANITA PP, CMP ####[place] [id number] [place] [address] [facility] INR Coag (PPP) [Relative time] 0.9 {INR} Normal [facility] Comment on above: Result Comment: INR Therapeutic [...] Performed By: #### C JUANITA, PP, CMP ####[facility] [place] [phone] [facility] PT Coag (PPP) [Time] 10.9 s Normal 9.0-12.9 [facility] Comment on above: Result Comment: A he matocrit value greater than 55% may lead to inaccurate results in coagulation testing. Patients having hematocrit values >55% require a special collection tube for coagulation studies. Please contact the laboratory at [phone] for redraw instructions. Performed By: #### C BC, PP, CMP ####[facility] [id number] [place] [address] Color Auto (U)Ordered By: [place] East on 02-12-2023 Color (U) Yellow Yellow [facility] Complete Blood Count Auto Di ffon 02-12-2023 Basophils (Bld) [#/Vol] 0.0 10*3/uL Normal 0.0-0.2 [facility] Comment on above: Result Comment: PERF ORMED BY: [place] [address] PATHOLOGIST PATIENT FINANCIAL SERVICES SPECIALIST JERAMY CALDWELL M.D. Performed By: #### C BC, PP, CMP #### [facility] [address] [place] [address] Basophils/100 WBC (Bld) 0.2 % Normal . [facility] Comment on above: Performed By: #### C BC, PP, CMP #### [facility] [address] [place] [address] Eosinophils (Bld) [#/Vol] 0.0 10*3/uL Normal 0.0-0.45 [facility] Comment on above: Performed By: #### C BC, PP, CMP #### [facility] [address] [place] [address] [place] Eosinophils/100 WBC (Bld) 0.0 % Normal . [facility] Comment on above: Performed By: #### C BC, PP, CMP #### [facility] [address] [place] [address] Erythrocyte distribution width (RBC) [Ratio] 14.6 % Normal 11.9-15.3 [facility] Comment on above: Performed By: #### C BC, PP, CMP #### [address] Hematocrit (Bld) [Volume fraction] 46.1 % Normal 34.0-46.4 [facility] Comment on above: Performed By: #### C BC, PP, CMP #### [address] Hemoglobin (Bld) [Mass/Vol] 15.6 g/dL High 11.8-15.4 [facility] Comment on above: Performed By: #### C BC, PP, CMP #### [address] Lymphocytes (Bld) [#/Vol] 0.6 10*3/uL Low 1.00-4.8 [facility] Comment on above: Performed By: #### C BC, PP, CMP #### [address] Lymphocytes/100 WBC (Bld) 4.0 % Normal . [facility] Comment on above: Performed By: #### C BC, PP, CMP #### [address] MCH (RBC) [Entitic mass] 30.6 pg Normal 24.7-34.3 [facility] Comment on above: Performed By: #### C BC, PP, CMP #### [address] MCV (RBC) [Entitic vol] 90.6 fL Normal 80-100 [facility] Comment on above: Performed By: #### C BC, PP, CMP #### [address] Mean Corpuscular HGB Conc 33.8 g/dL Normal 32.0-35.0 [facility] Comment on above: Performed By: #### C BC, PP, CMP #### [address] Monocytes (Bld) [#/Vol] 0.3 10*3/uL Normal 0.0-0.8 [facility] Comment on above: Performed By: #### C BC, PP, CMP #### [facility] [address] [place] [address] [place] Monocytes/100 WBC (Bld) 1.8 % Normal . [facility] Comment on above: Performed By: #### C BC, PP, CMP #### [facility] [address] Neutrophils (Bld) [#/Vol] 14.1 10*3/uL High 1.8-7.7 [facility] Comment on above: Performed By: #### C BC, PP, CMP #### [facility] [address] Neutrophils/100 WBC (Bld) 94.0 % Normal . [facility] Comment on above: Performed By: #### C BC, PP, CMP #### [facility] [address] NRBC% 0.1 /100{WBC} Normal 0-0.5 [facility] Comment on above: Performed By: #### C BC, PP, CMP #### [facility] [address] Platelet mean volume (Bld) [Entitic vol] 7.9 fL Normal 6.3-10.7 [facility] Comment on above: Performed By: #### C BC, PP, CMP #### [facility] [address] [place] [address] [place] Platelets (Bld) [#/Vol] 236 10*3/uL Normal 150-450 [facility] Comment on above: Performed By: #### C BC, PP, CMP #### [facility] [address] [place] [address] [place] RBC (Bld) [#/Vol] 5.09 10*6/uL High 3.60-5.00 [facility] Comment on above: Performed By: #### C BC, PP, CMP #### [facility] [address] [place] [address] [place] WBC (Bld) [#/Vol] 15.0 10*3/uL High 3.8-11.6 [facility] Comment on above: Performed By: #### C JUANITA, PP, CMP #### [address] Comprehensive Metabolic Pane franco 02-12-2023 Albumin [Mass/Vol] 4.6 g/dL Normal 3.5-5.7 [facility] Comment on above: Performed By: #### C JUANITA, PP, CMP #### [address] Albumin/Globulin [Mass ratio] 1.5 {ratio} Normal [facility] Comment on above: Performed By: #### C JUANITA PP, CMP #### [address] ALP [Catalytic activity/Vol] 70 U/L Normal 34-104 [facility] Comment on above: Performed By: #### C UJANITA PP, CMP #### [address] ALT [Catalytic activity/Vol] 19 U/L Normal 7-52 [facility] Comment on above: Performed By: #### C JUANITA PP, CMP #### [address] Anion gap [Moles/Vol] Not performed Normal 6.0-15.0 [facility] Comment on above: Performed By: #### C JUANITA, PP, CMP #### [address] AST [Catalytic activity/Vol] 29 U/L Normal 13-39 [facility] Comment on above: Performed By: #### C JUANITA, PP, CMP #### [address] Bilirubin [Mass/Vol] 0.5 mg/dL Normal 0.3-1.0 [facility] Comment on above: Performed By: #### C JUANITA, PP, CMP #### [address] Calcium [Mass/Vol] 9.9 mg/dL Normal 8.6-10.3 [facility] Comment on above: Performed By: #### C BC, PP, CMP #### [facility] [address] Chloride [Moles/Vol] 106 mmol/L Normal 98-107 [facility] Comment on above: Performed By: #### C BC, PP, CMP #### [facility] [address] CO2 [Moles/Vol] 20.4 mmol/L Low 21.0-31.0 [facility] Comment on above: Performed By: #### C JUANITA, PP, CMP #### [facility] [address] Creatinine [Mass/Vol] 1.65 mg/dL High 0.60-1.20 [facility] Comment on above: Performed By: #### C BC, PP, CMP #### [facility] [address] Creatinine Clr Calc Pharmacy 34.03 [facility] Comment on above: Result Comment: PERF ORMED BY: [place] [address] PATHOLOGIST PATIENT FINANCIAL SERVICES SPECIALIST JERAMY CALDWELL M.D. Performed By: #### C BC, PP, CMP #### [address] GFR/1.73 sq M.predicted MDRD (S/P/Bld) [Vol rate/Area] 35.363 mL/min/{1.73_m2} [facility] Comment on above: Performed By: #### C BC, PP, CMP #### [facility] [address] [place] [address] [place] Globulin (S) [Mass/Vol] 3.1 g/dL [facility] Comment on above: Performed By: #### C BC, PP, CMP #### [facility] [address] Glucose [Mass/Vol] 157 mg/dL High 70-100 [facility] Comment on above: Result Comment: [place] om Glucose Reference Range is dependent on time and content of last meal. Glucose of more than 200 mg/dL in a nonstressed, ambulatory subject supports the diagnosis of Diabetes Mellitus. ADA recommended reference range Performed By: #### C BC, PP, CMP #### [facility] [address] [place] [address] [place] Potassium Normal 3.5-5.1 [facility] Comment on above: Result Comment: Spec imen hemolyzed, redraw requested Performed By: #### C BC, PP, CMP #### [facility] [address] [place] [address] [place] Protein [Mass/Vol] 7.7 g/dL Normal 6.4-8.9 [facility] Comment on above: Performed By: #### C BC, PP, CMP #### [facility] [address] [place] [address] [place] Sodium [Moles/Vol] 140 mmol/L Normal 136-145 [facility] Comment on above: Performed By: #### C BC, PP, CMP #### [facility] [address] [place] [id number] [place] Urea nitrogen [Mass/Vol] 32 mg/dL High 7-25 [facility] Comment on above: Performed By: #### C BC, PP, CMP #### [facility] [address] [place] [address] [place] Dipstick and Microscopicon 1 04-15-2022 Appearance (U) Clear Normal Clear [facility] Comment on above: Order Comment: Name Collection Type:: Clean-Voided Midstream Performed By: #### A DDONUAPLUS #### [facility] [address] [place] [id number] [place] Bacteria,Urine None Seen Normal None Seen [facility] Comment on above: Order Comment: Name Collection Type:: Clean-Voided Midstream Performed By: #### A DDONUAPLUS #### [facility] [address] [place] [id number] [place] Bilirubin,Urine Negative Normal Negative [facility] Comment on above: Order Comment: Name Collection Type:: Clean-Voided Midstream Performed By: #### A DDONUAPLUS #### [facility] [address] [place] [address] [place] Color (U) Yellow Normal Yellow [facility] Comment on above: Order Comment: Name Collection Type:: Clean-Voided Midstream Performed By: #### A DDONUAPLUS #### [facility] [address] [place] [address] [place] Glucose Ql (U) Normal Normal Normal [facility] Comment on above: Order Comment: Name Collection Type:: Clean-Voided Midstream Performed By: #### A DDONUAPLUS #### [place] [address] [place] Hyaline Casts,Urine 0-8 Normal 0-8 [facility] Comment on above: Order Comment: Name Collection Type:: Clean-Voided Midstream Result Comment: PERF ORMED BY: [place] [address] PATHOLOGIST PATIENT FINANCIAL SERVICES SPECIALIST JERAMY CALDWELL M.D. Performed By: #### A DDONUAPLUS #### [facility] [address] [place] [address] [place] Ketones Ql (U) Negative Normal Negative [facility] Comment on above: Order Comment: Name Collection Type:: Clean-Voided Midstream Performed By: #### A DDONUAPLUS #### [facility] [address] [place] [address] [place] Leukocyte esterase Test strip Ql (U) 1+ High Negative [facility] Comment on above: Order Comment: Name Collection Type:: Clean-Voided Midstream Performed By: #### A DDONUAPLUS #### [facility] [address] [place] [address] [place] Nitrite,Urine Negative Normal Negative [facility] [facility] Comment on above: Order Comment: Name Collection Type:: Clean-Voided Midstream Performed By: #### A DDONUAPLUS #### [facility] [address] [place] [address] [place] Occult Blood,Urine Negative Normal Negative [facility] Comment on above: Order Comment: Name Collection Type:: Clean-Voided Midstream Result Comment: PERF ORMED BY: [place] [address] PATHOLOGIST PATIENT FINANCIAL SERVICES SPECIALIST JERAMY CALDWELL M.D. Performed By: #### A DDONUAPLUS #### [address] pH (U) 5.0 [pH] Normal 5.0-9.0 [facility] Comment on above: Order Comment: Name Collection Type:: Clean-Voided Midstream Performed By: #### A DDONUAPLUS #### [place] [address] [place] Protein,Urine Negative Normal Negative [facility] Comment on above: Order Comment: Name Collection Type:: Clean-Voided Midstream Performed By: #### A DDONUAPLUS #### [address] RBC,Urine 1-2 Normal 0-4 [facility] Comment on above: Order Comment: Name Collection Type:: Clean-Voided Midstream Performed By: #### A DDONUAPLUS #### [address] Specificy [place],Urine 1.017 Normal 1.001-1.03 0 [facility] Comment on above: Order Comment: Name Collection Type:: Clean-Voided Midstream Performed By: #### A DDONUAPLUS #### [place] [address] [place] Squamous Epithelial Cell,Urine 0-1 Normal 0-2 [facility] Comment on above: Order Comment: Name Collection Type:: Clean-Voided Midstream Performed By: #### A DDONUAPLUS #### [place] [address] [place] Urobilinogen,Urine Normal Normal Normal [facility] Comment on above: Order Comment: Name Collection Type:: Clean-Voided Midstream Performed By: #### A DDONUAPLUS #### [place] [address] [place] WBC,Urine 3-4 Normal 0-4 [facility] Comment on above: Order Comment: Name Collection Type:: Clean-Voided Midstream Performed By: #### A DDONUAPLUS #### [place] [id number] [facility] ECG 12 lead ECGon 02-12-2023 ECG 12 lead ECG [facility] [place] [address] [place] [address] Electrocardiograph Report Signed Patient: Deysi Hernandez MR#: [id number] : 1960 Acct:[id number] Age/Sex: 62 / F ADM Date: 02/12/23 Loc: Room: [address] [place] [address] Type: ADM IN Attending Dr: Jacques East [...] Signed By Bj Bay DO 02/13 1109 [facility] Gram Stainon 02-12-2023 Microscopic observation Gram stain Nom (Unsp spec) Gram Stain Result Rare Epithelial Cells 1+ White Blood Cells Rare Gram Positive Coccobacilli PERFORMED BY: [place] [address] PATHOLOGIST PATIENT FINANCIAL SERVICES SPECIALIST JERAMY CALDWELL M.D. Normal [facility] Comment on above: Performed By: #### A AUGUSTUS YOUNG #### [facility] [address] Gram stain for investigation of transfusion reactionOrdered By: Jacques East on 02-12-2023 Microscopic observation Gram stain Nom (Unsp spec) [facility] Microscopic observation Gram stain Nom (Unsp spec) 2 Days [facility] INR in Platelet poor plasma by Coagulation assayOrdered By: Sally Valle on 02-12-2023 INR Coag (PPP) [Relative time] 0.9 {INR} [facility] Comment on above: INR Therapeutic Rang e [...] on 02-12-2023 Ketones (U) [Mass/Vol] Negative Negative [facility] Laboratory - UrinalysisOrder ed By: Jacques East on 02-12-2023 Hyaline casts LM Ql (Urine sed) 0-8 [LPF] 0-8 [facility] Magnesiumon 02-12-2023 Magnesium [Mass/Vol] 1.8 mg/dL Low 1.9-2.7 [facility] Comment on above: Result Comment: PERF ORMED BY: [facility] [address] [place] [address] PATHOLOGIST PATIENT FINANCIAL SERVICES SPECIALIST JERAMY CALDWELL M.D. Performed By: #### M G ####[facility] Gik[address] Nitrite Test strip Ql (U)Ord ered By: Jacques East on 02-12-2023 Nitrite Ql (U) Negative Negative [facility] Protein Auto test strip (U) [Mass/Vol]Ordered By: Jacques East on 02-12-2023 Protein (U) [Mass/Vol] Negative Negative [facility] Prothrombin time (PT)Ordered By: Sally Valle on 02-12-2023 PT Coag (PPP) [Time] 10.9 s 9.0-12.9 [facility] Comment on above: A hematocrit value g reater than 55% may lead to inaccurate results in coagulation testing. Patients having hematocrit values >55% require a special collection tube for coagulation studies. Please contact the laboratory at [phone] for redraw instructions. Redraw Potassiumon 3 Potassium [Moles/Vol] 4.4 mmol/L Normal 3.5-5.1 [facility] Comment on above: Order Comment: 1ST S pecimen hemolyzed, redraw requested Result Comment: PERF ORMED BY: [facility] [address] [place] [id number] PATHOLOGIST PATIENT FINANCIAL SERVICES SPECIALIST JERAMY CALDWELL M.D. Performed By: #### R EDW K ####[place] [id number] [facility] Specific gravity Auto test s trip (U) [Rel density]Ordered By: Jacques East on 02-12-2023 Specific gravity (U) [Rel density] 1.017 1.001-1.03 0 [facility] Squamous epithelial cells de tection in urine sediment by light microscopyOrdered By: Jacques East on 02-12-2023 Epithelial cells.squamous LM Ql (Urine sed) 0-1 [HPF] 0-2 [facility] Troponin I High Sensitivityo n 02-12-2023 Troponin I High Sensitivity 43.8 pg/mL High 0.0-15.0 [facility] Comment on above: Result Comment: PERF ORMED BY: [facility] [address] [place] [address] PATHOLOGIST PATIENT FINANCIAL SERVICES SPECIALIST JERAMY CALDWELL M.D. Performed By: #### H S TROP ####[address] [address] [facility] Troponin I High Sensitivity 70.6 pg/mL Off scale high 0.0-15.0 [facility] Comment on above: Result Comment: Crit ical Result : Called to and read back by: BRANDON LEVINE at: 02/12/2023 08:07:31 by:LUCIANO PERFORMED BY: [place] [address] PATHOLOGIST PATIENT FINANCIAL SERVICES SPECIALIST JERAMY CALDWELL M.D. Performed By: #### H S TROP ####[facility] Troponin I.cardiac [Mass/vol ume] in Serum or Plasma by Detection limit <= 0.01 ng/Ordered By: Sally Valle on 02-12-2023 Troponin I.cardiac DL <= 0.01 ng/mL [Mass/Vol] 43.8 pg/mL 0.0-15.0 [facility] Urine bacteria detection by automated methodOrdered By: Jacques East on 02-12-2023 Bacteria Auto Ql (U) None seen None Seen [facility] Urine clarity by refractomet ry automatedOrdered By: Jacques East on 02-12-2023 Clarity Refractometry automated (U) Clear Clear [facility] Urine glucose measurement by automated test strip (mass/volume)Ordered By: Jacques East on 02-12-2023 Glucose Auto test strip (U) [Mass/Vol] Normal mg/dL Normal [facility] Urine hemoglobin detection b y automated test stripOrdered By: Jacques East on 02-12-2023 Hemoglobin Auto test strip Ql (U) Negative Negative [facility] Urine leukocyte esterase det ection by automated test stripOrdered By: Jacques East on 02-12-2023 Leukocyte esterase Auto test strip Ql (U) 1+ Negative [facility] Urobilinogen Auto test strip (U) [Mass/Vol]Ordered By: Jacques Chirinosr on 02-12-2023 Urobilinogen (U) [Mass/Vol] Normal mg/dL Normal [facility] XR chest 1V portableon 02-12 XR chest 1V portable [facility] [place] [address] [place], [place] [id number] XRay Report Signed Patient: Deysi Hernandez MR#: [id number] : 1960 Acct:[id number] Age/Sex: 62 / F ADM Date: 02/12/23 Loc: Room: [address] [place] [address] Type: ADM IN Attending Dr: Jacques East [...] Bj Ma M.D.02/12/2023 12:40 PM Dictation Location: [place] [address] Transcribed By: [facility] 02/12/23 1240 Dictated By: Bj Ma DO 02/12/23 1237 Signed By: 02/12/23 1240 Normal [facility] pH Auto test strip (U)Ordere d By: Jacques East on 02-12-2023 pH (U) 5.0 [pH] 5.0-9.0 [facility] Ambulatory Visit Summaryon 1 04-13-2022 Ambulatory Visit Summary DEYSI HERNANDEZ :1960 Visit Date:02/10/2023 Ambulatory Visit Instructions Your Diagnosis Dysuria Tests Performed Urnls Dip Stick Auto w/o Microscopy POC 49860 Your Care Team Attending Physician - Alex BRIDGES, Jaxson W. Primary Care Physician - DONNA FINNEY, [facility] This Is Your Medications List Misc Prescription [...] Urnls Dip Stick Auto w/o Microscopy POC 41774 (02/10/2023) Bilirubin Urine Dipstick - Negative Blood Urine Dipstick - 2+ Moderate Glucose Urine Dipstick - Negative Ketones Urine Dipstick - Negative Leukocytes Urine Dipstick - 1+ Small Nitrite Urine Dipstick - Positive Protein Urine Dipstick - Negative Specific [place] Urine Dipstick - 1.015 Urine Appearance Urine [...] for choosing us for your care. Normal [facility] Auto Diffon 02-10-2023 Basophils/100 WBC (Bld) 1.3 % Normal 0.0-2.0 [facility] Comment on above: Order Comment: Order Added by Discern Expert. Performed By: #### 2 338146, 09061819, 31517662, 7881360, 2218728, 01245188, 23346323 ####[place] [address] [place] [address] Basophils/Leukocytes Auto (Bld) [Pure # fraction] 0.1 E9/L Normal 0.0-0.2 [facility] Comment on above: Order Comment: Order Added by Discern Expert. Performed By: #### 2 797952, 42334105, 99493827, 7603675, 6460368, 80229985, 37975995 ####[place] [address] [place] [address] Eosinophils/100 WBC (Bld) 1.5 % Normal 0.0-8.0 [facility] Comment on above: Order Comment: Order Added by Edmund Expert. Performed By: #### 2 673466, 64541886, 44046651, 4131140, 3404134, 70100745, 94009338 ####[address] [address] Eosinophils/Leukocytes Auto (Bld) [Pure # fraction] 0.1 E9/L Normal 0.0-0.5 [facility] Comment on above: Order Comment: Order Added by Discern Expert. Performed By: #### 2 239282, 39350266, 60403057, 4227493, 4889746, 22042481, 80861018 ####[address] [address] Lymphocytes/100 WBC (Bld) 16.8 % Normal 14.0-50.0 [facility] Comment on above: Order Comment: Order Added by Discern Expert. Performed By: #### 2 874278, 40590293, 36608670, 1536374, 9798201, 69131957, 78529336 ####[place] [address] [place] [address] Lymphocytes/Leukocytes Auto (Bld) [Pure # fraction] 1.6 E9/L Normal 1.0-4.0 [facility] Comment on above: Order Comment: Order Added by Edmund Expert. Performed By: #### 2 984324, 79493725, 17143345, 9368782, 0698616, 01341108, 38088885 ####[facility] [address] [place] [address] Monocytes/100 WBC (Bld) 9.8 % Normal 4.0-14.0 [facility] Comment on above: Order Comment: Order Added by Discern Expert. Performed By: #### 2 092809, 48042889, 58184825, 9850820, 9362339, 57345257, 43346402 ####[facility] [address] [place] [address] Monocytes/Leukocytes Auto (Bld) [Pure # fraction] 0.9 E9/L Normal 0.2-1.0 [facility] Comment on above: Order Comment: Order Added by Edmund Expert. Performed By: #### 2 952051, 11561095, 46927127, 9602384, 1276995, 06792332, 95549132 ####[place] [address] [place] [address] Neutrophils/100 WBC (Bld) 70.6 % Normal 36.0-75.0 [facility] Comment on above: Order Comment: Order Added by Edmund Expert. Performed By: #### 2 772325, 56733216, 34060379, 4671207, 2832906, 56557355, 05481659 ####[facility] [address] [place] [address] Neutrophils/Leukocytes Auto (Bld) [Pure # fraction] 6.7 E9/L Normal 2.0-7.5 [facility] Comment on above: Order Comment: Order Added by Edmund Expert. Performed By: #### 2 435956, 48589873, 48796091, 7414760, 6095429, 44348025, 20085105 ####[facility] [address] [place] [address] BMPon 02-10-2023 Anion gap [Moles/Vol] 14 mmol/L Normal 6-16 [facility] Comment on above: Performed By: #### 2 604713, 92773054, 23554018, 0655590, 8612292, 01899925, 97249757 ####[facility] [address] [place] [address] BUN/Creat Ratio 12 No Units Normal 10-20 [facility] Comment on above: Performed By: #### 2 464100, 17748846, 59899943, 5435494, 2832154, 16709720, 98064592 ####[facility] [address] [place] [address] Calcium [Mass/Vol] 9.7 mg/dL Normal 8.9-11.1 [facility] Comment on above: Performed By: #### 2 032817, 18865065, 87851302, 2873295, 6825814, 24998832, 05143201 ####[facility] [address] [place] [address] Chloride [Moles/Vol] 107 mmol/L Normal 101-111 [facility] Comment on above: Performed By: #### 2 036701, 80853412, 38949697, 2648550, 0457534, 74238073, 39591875 ####[facility] [address] [place] [address] CO2 [Moles/Vol] 25 mmol/L Normal 21-31 [facility] Comment on above: Performed By: #### 2 889864, 10818146, 39113915, 9631707, 2758219, 88920764, 64003849 ####[facility] [address] [place] [address] Creatinine [Mass/Vol] 1.4 mg/dL High 0.5-1.3 [facility] Comment on above: Performed By: #### 2 542403, 17153073, 85175215, 1739166, 8444547, 72096941, 84647491 ####[facility] [address] [place] [address] Glucose [Mass/Vol] 84 mg/dL Normal 55-199 [facility] Comment on above: Performed By: #### 2 101117, 45275858, 49275555, 4652336, 3979201, 85262837, 14522858 ####[facility] [address] [place] [address] Potassium [Moles/Vol] 4.8 mmol/L Normal 3.5-5.3 [facility] Comment on above: Performed By: #### 2 647664, 83237879, 44763162, 5631934, 4290628, 03837825, 58062991 ####[facility] [address] [place] [address] Sodium [Moles/Vol] 141 mmol/L Normal 135-145 [facility] Comment on above: Performed By: #### 2 380220, 46462505, 35678877, 1235571, 7762083, 90803074, 88982906 ####[facility] [address] [place] [address] Urea nitrogen [Mass/Vol] 17 mg/dL Normal 5-21 [facility] Comment on above: Performed By: #### 2 120146, 26009568, 12689209, 0759500, 8845494, 33543256, 83606633 ####[facility] [address] [place] [address] BNPon 02-10-2023 Natriuretic peptide B (Bld) [Mass/Vol] 39 pg/mL Normal 5-80 [facility] Comment on above: Performed By: #### 2 049207, 78718723, 95574377, 1370103, 4681281, 03876228, 99802031 ####[facility] [address] [place] [address] CBC w/ Auto Diffon Erythrocyte distribution width (RBC) [Ratio] 14.4 % High 10.9-14.2 [facility] Comment on above: Performed By: #### 2 288405, 93080814, 85904268, 3041091, 1996087, 11929997, 56920322 ####[facility] [address] [place] [address] Hematocrit (Bld) [Volume fraction] 50.0 % High 34.0-46.0 [facility] Comment on above: Performed By: #### 2 151600, 80691618, 25173288, 6320500, 5892186, 95020095, 30035484 ####[facility] [address] [place] [address] Hemoglobin (Bld) [Mass/Vol] 16.8 g/dL High 12.0-16.0 [facility] Comment on above: Performed By: #### 2 759568, 45901456, 49719797, 5510037, 9588489, 79707384, 50873873 ####[facility] [address] [place] [address] MCH (RBC) [Entitic mass] 30.1 pg Normal 27.0-34.0 [facility] Comment on above: Performed By: #### 2 723644, 96743538, 09624905, 7283645, 6546428, 10061450, 38171516 ####[facility] [address] [place] [address] MCHC (RBC) [Mass/Vol] 33.7 g/dL Normal 31.4-36.0 [facility] Comment on above: Performed By: #### 2 439389, 85008514, 89676298, 4760403, 9122377, 40945374, 28248565 ####[address] [address] MCV (RBC) [Entitic vol] 89.4 fL Normal 80.0-100.0 [facility] Comment on above: Performed By: #### 2 053878, 86151280, 02424338, 5581484, 6899293, 41944901, 16453457 ####[facility] [address] [place] [address] Platelet mean volume (Bld) [Entitic vol] 8.0 fL Normal 6.4-10.8 [facility] Comment on above: Performed By: #### 2 503745, 15860169, 02036974, 2576836, 4576747, 73558416, 99251231 ####[place] [address] [place] [address] Platelets (Bld) [#/Vol] 202.0 E9/L Normal 150.0-500. 0 [facility] Comment on above: Performed By: #### 2 433648, 88215589, 25124627, 9769042, 9720447, 59228491, 33414569 ####[address] [address] RBC (Bld) [#/Vol] 5.6 E12/L Normal 4.3-5.9 [facility] Comment on above: Performed By: #### 2 663216, 84745119, 58060122, 1084119, 0277943, 58949827, 52959490 ####[address] [address] WBC corrected for nucl RBC Auto (Bld) [#/Vol] 9.4 E9/L Normal 4.0-11.0 [facility] Comment on above: Performed By: #### 2 201252, 03871782, 19999092, 4981572, 4958179, 92637514, 77857997 ####[facility] [address] [place] [address] CHEMISTRYOrdered By: SYSTEM SYSTEM on 02-10-2023 Anion [...] - 20 Remisol Chem CHEMISTRYOrdered By: Estela eRyna on 02-10-2023 Natriuretic peptide B (Bld) [Mass/Vol] 39 pg/mL Normal 5 - 80 pg/mL [facility] HemeMan COAGULATIONOrdered By: Veronica Guidry on 02-10-2023 aPTT Coag (PPP) [Time] 29.2 s Normal 25.1 - 36.5 second(s) [facility] Auto Coag Comment on above: Interpretive Data: [...] the same coagulation reagent and instrumentation as [facility]. Currently there are no coagulation studies available worldwide for children to 14 days, and no normal ranges. Heparin therapeutic range (represented by Anti-Factor Xa activity of 0.2 - 0.4 U/mL) corresponds to PTT of 56.6 - 109.0 sec. INR Coag (PPP) [Relative time] 1.0 {INR} Invalid Interpretation Code [facility] Auto Coag Comment on above: Interpretive Data: I NR results are specifically intended to assess patients stabilized on long-term Anticoagulation therapy suggested INR s Less Intensive Anticoagulation 2.0 3.0 Conventional Range 3.0 4.5 PT Coag (PPP) [Time] 11.6 s Normal 9.4 - 1 2.5 second(s) [facility] Auto Coag Comment on above: Interpretive Data: [...] the same coagulation reagent and instrumentation as [facility]. Currently there are no coagulation studies available worldwide for children to 14 days, and no normal ranges. Consent for Treatmenton 01-19 Consent for Treatment [id number] Normal [facility] Discharge Instructionson Discharge Instructions [id number] F Normal [facility] ED Clinical Summaryon 2022 ED Clinical Summary (Inserted Image. Neelam ble to display) [address] [address] ED Clinical Summary Person Information Name: DEYSI HERNANDEZ [facility] Age: 62 Years : 1960 Sex: Female Language: Yemeni PCP: SHAIKH THOMPSON MD Marital Status: Visit [...] 02/10/2023 17:12:09 02/10/2023 17:12:09 ADDRESS: [address] [id number] PHYS DOC NOTES: MEDICAL INFORMATION: Prescriptions Given: New Medications [id number], [address], [place] [id number], [phone] cefdinir (cefdinir 300 mg Cap) 1 Capsules [...] Tablets By Mouth every day. Misc Prescription (COX S[place] ASPIRIN EC 81 MG TABLET) 0. omeprazole (omeprazole 40 mg Cap-DR) 1 Capsules By Mouth every day. Refills: 2. PATIENT EDUCATION INFORMATION: Instructions: Urinary Tract Infection, Adult, Qnra-xz-Bwjr; Acute Bronchitis, Adult Follow up: With: Address: When: SHAIKH DONNA [address] [place], [place] [phone] [employer] (1) In 3 days 02/13/2023 Comments: Follow-up with your primary care provider in 3 to 5 days. If symptoms worsen, do not improve, or new symptoms arise please report back to emergency department for further evaluation. DIAGNOSIS: Bronchitis; UTI (urinary tract infection) Normal [facility] ED Note-Nursingon 02-10-2023 ED Note-Nursing EKG late due to vanessa ent being in the bathroom when called. Normal [facility] ED Note-Physicianon 02-11-20 ED Note-Physician Basic [...] (N39.0: Urin (more content not included)... Normal [facility] Comment on above: Result Comment: Elec tronically Signed By: Raymundo BRIDGES, Keon J.\.br\Date and Time Signed: 02/10/23 16:31 EST\.br\Electronically Co-Signed [...] these instructions at home: Medicines ? Take uhji-tnj-atyajjj and prescription medicines only as told by [...] provider. Document Revised: 09/16/2020 Document Reviewed: 09/16/2020 [employer] Patient Education ? 2022 [employer]. Pulmonary Medicine Acute Bronchitis, Adult Acute bronchitis [...] The f (more content not included)... Normal [facility] ED Patient Summaryon 023 ED Patient Summary (Inserted Image. Neelam ble to display) [place] [id number] Patient Discharge Instructions Person Information Name: DEYSI HERNANDEZ Age: 62 Years Arrival Date: 02/10/2023 14:37:39 Discharge Diagnosis: Bronchitis; UTI (urinary tract infection) Primary Care Physician: SHAIKH THOMPSON MD Provider Information Primary Provider: Gabby De Oliveira M.D. Advanced Developmental Psychologist:None The exam and treatment you received in the Emergency Department were for an urgent problem and are not intended as complete care. It is important that you follow up with a doctor, nurse practitioner, or physician?s curatorial assistant for ongoing care. If your symptoms [...] With: Address: When: SHAIKH DONNA [address] [place], [place] [phone] Business (1) In 3 days 02/13/2023 Comments: [...] Patient Education Materials: Urinary Tract Infection, Adult, Trik-az-Vldr; Acute Bronchitis, Adult A MESSAGE TO ALL PATIENTS REGARDING OPIOIDS PRESCRIPTION OPIOIDS: WHAT YOU NEED TO KNOW Prescription opioids can be used to help relieve nwxqjiag-nc-priktl pain and are often prescribed following a [...] Visit www.cdc.gov/dr (more content not included)... Normal [facility] Family Medicine Office/Clini c Noteon 02-10-2023 [...] send her to the emergency department at [facility]. She was offered EMS transfer but [...] hurt by (more content not included)... Normal [facility] Comment on above: Result Comment: Elec tronically Signed By: Alex BIRDGES, Jaxson Concepcion\.br\Date and Time Signed: 02/10/23 14:46 [...] A Ag Negative Normal Negative Ramirez Ti [facility] Comment on above: Performed By: #### 1 7772229, [id number] ####[facility] [address] [place] [address] Influenzae B Ag Negative Normal Negative [facility] Comment on above: Result Comment: Test sensitivity and specificity vary for age group, specimen type, antigen types, and prevalence of disease. Test results must be evaluated in conjunction with other clinical data available to the physician. Individuals who received nasally administered Influenza A vaccine may have positive test results up to 3 days after vaccination. Performed By: #### 1 [id number], [id number] ####[facility] [address] [place] [address] MICRO OTHER TESTSOrdered By: Trudy Guidry on 02-10-2023 Influenzae A Ag Negative (02/10/23 3:25 PM) Normal Negative [facility] Man Sero Influenzae B Ag Negative 1 (02/10/23 3:25 PM) Normal Negative [facility] Sero Comment on above: Interpretive Data: [...] NEG [place]l [place] (02/10/23 3:25 PM) Normal [facility] Sero Rapid COV Int POS Ctl Pass (02/10/23 3:25 PM) Normal [facility] Sero SARS-CoV+SARS-CoV-2 (COVID-19) Ag IA.rapid Ql (Resp) Not Detected 6 (02/10/23 3:25 PM) Normal Not Detected [facility] Sero Comment on above: Interpretive Data: T he [employer] Veritor System for Rapid Detection of SARS-CoV-2 [...] Coag (PPP) [Time] 29.2 second(s) Normal 25.1-36.5 [facility] Comment on above: Result Comment: Para [...] the same coagulation reagent and instrumentation as [facility]. Currently there are no coagulation studies available worldwide for children to 14 days, and no normal ranges. Heparin therapeutic range (represented by Anti-Factor Xa activity of 0.2 - 0.4 U/mL) corresponds to PTT of 56.6 - 109.0 sec. Performed By: #### 2 [id number], [id number], 84988925, 3481616, 9197674, 35028203, 24745007 ####[facility] [address] [place] [address] INR Coag (PPP) [Relative time] 1.0 {INR} Invalid Interpretation Code [facility] Comment on above: Result Comment: INR results are specifically intended to assess patients stabilized on long-term Anticoagulation therapy suggested INR?s ?Less Intensive Anticoagulation? 2.0 ? 3.0 Conventional Range 3.0 ? 4.5 Performed By: #### 2 133364, 72955694, 42663369, 8203331, 2222411, 99289911, 26023573 ####[facility] [address] [place] [address] PT Coag (PPP) [Time] 11.6 second(s) Normal 9.4-12.5 [facility] Comment on above: Result Comment: 15 [...] the same coagulation reagent and instrumentation as [facility]. Currently there are no coagulation studies available worldwide for children to 14 days, and no normal ranges. Performed By: #### 2 470039, 04372869, 11368078, 8244808, 9219578, 12368837, 82969481 ####[facility] [address] [place] [address] Rapid COVID Antigen ([facility])on 02-10-2023 Rapid COV Int NEG Ctl Pass Normal Fis [facility] Comment on above: Performed By: #### 1 [id number], [id number] ####[facility] [address] [place] [address] Rapid COV Int POS Ctl Pass Normal Fis [facility] Comment on above: Performed By: #### 1 9147913, [id number] ####[facility] [address] [place] [address] SARS-CoV+SARS-CoV-2 (COVID-19) Ag IA.rapid Ql (Resp) Not detected Normal Not Detected [facility] Comment on above: Result Comment: The SiConnect System for Rapid Detection of SARS-CoV-2 is [...] or revoked sooner. Performed By: #### 1 [id number], [id number] ####[facility] [address] [place] [address] Troponin 0 Hr.on 02-10-2023 Troponin 5.80 pg/mL Low 10.10-27.1 0 [facility] Comment on above: Result Comment: The 95% CI (Confidence Interval) PPV (Positive Predictive Value) for myocardial infarction in females is 38 pg/mL, in males 51 pg/mL. The results should be used in conjunction with clinical conditions of myocardial infarction. (Access High Sensitivity Troponin I Instructions For Use, [employer], September 2017) Performed By: #### 2 767695, 32172971, 20303356, 0934545, 2918341, 59926447, 89498933 ####[facility] [address] [place] [address] XR Chest Single Viewon 02-10 XR Chest [...] mGy = na DAP = na Normal [facility] eGFRon 02-10-2023 eGFR 43 mL/min/1.73 m2 Low >=59 [facility] Comment on above: Order Comment: Order added by Discern Expert. Performed By: #### 2 599950, 70459027, 38208405, 0479851, 8876681, 06345105, 86611368 ####[facility] [address] [place] [address] [facility] 10-26-2022 CNPN Telephone (MICHAELCheo) ----- DEYSI HERNANDEZ ([id number]) 1960 F Date Time Provider Department 10/26/22 [...] question. I will also send her a Xiaoying message encouraging communicate via Xiaoying if needed. Debra Fishman MD Staff, Department of Kidney Medicine 10/26/22 5:49 PM Allergies As of Date: 10/26/2022 Noted Allergy Reaction CODEINE 09/07/2014 7 - Swelling Date Reviewed: 10/09/2022 Reviewed by: Rosie Harris DO - Fully Assessed Reason for Visit: Patient Question [7397] Prescriptions as of 10/26/2022 - lisinopril (ZESTRIL) [...] Mixed hyperlipidemia [E78.2] 10/09/2022 Encounter Status:Closed by EDBRA FISHMAN on 10/26/22 [facility] 10-25-2022 CNPN Telephone (AARON) ----- DEYSI HERNANDEZ ([id number]) 1960 F Date Time Provider Department 10/25/22 DEBRA FISHMAN During your visit today, we recorded the following information about you: Linn Solis Ma 10/25/2022 12:36 PM Signed Patient called the office very upset because today at here appointment with Kidney Medicine she was seen by another provider and it wasn't her kidney doctor. She would like Dr. Fishman call her back at [phone] because she has lots of questions that [...] Fully Assessed Reason for Visit: Patient Question [4396] Prescriptions as of 10/25/2022 - lisinopril (ZESTRIL) [...] Status:Closed by LINN SOLIS MA on 10/25/22 [facility] Urineon 10-18-2022 Bacteria identified Cx Nom (U) [...] Locations R1: This test was performed at: [facility], [address] [place] [address], [facility]- , , [facility] Comment on above: Performed By: #### 2 [id number] ####[address] [place] [address] Family Medicine Office/Clini c Noteon 10-15-2022 Family [...] with voice recognition software. Occasional wrong-word or ?rtbau-y-lfyz? substitutions may have occurred due to the inherent limitations of voice recognition software. 62-year-old female with history of stage III chronic kidney disease, hyperlipidemia, hypertension, current smoker presents [facility] with chief complaint of possible urinary tract infection. She does note that she has been seen urology in the past in regards to stress incontinence. She also notes that she sees nephrology out of [facility]. Patient states she sees them every 6 months for history of her chronic kidney disease in which she states that her right kidney does a lot of work in her left kidney does not function. Patient states a history of urosepsis several years ago and she does not really recall 5 of her days of hospitalization or transfer from [facility] to [facility]. Patient states that on of last [...] day(s), # 21 cap(s), Refills(s) 0, Pharmacy: [facility]/pharmacy #[id number], 163, cm, 10/15/22 17:40:00 EDT, Height/Length [...] dependence, unspecified (more content not included)... Normal [facility] Comment on above: Result Comment: Elec tronically [...] numbers. This can be done either in [place] ([place] or metric measurements. Note that charts and online BMI calculators are available to help you find your BMI quickly and easily without having to do these calculations yourself. To calculate your BMI in [place] ([place] measurements: 1. Measure your weight in [...] for Disease Control and Prevention: www.cdc.gov ? [place] Heart Association: www.heart.org ? National Heart, Lung, and Blood [place]: www.nhlbi.nih.gov Summary ? Body mass index (BMI) is a number that is calculated from a person's weight and height. ? BMI may help estimate how much of a person's weight is composed of fat. BMI can help identify those who may be at higher risk for certain medical problems. ? BMI can be measured using [place]i measurements or metric measurements. ? BMI charts are used to identify whether you are underweight, normal weight, overweight, or obese. This information is not intended to replace advice given to you by your health care provider. Make sure you discuss any questions you have with your health care provider. Document Revised: 10/28/2019 Document Reviewed: 09/04/2019 [employer] Patient Education ? 2022 ScaleDB. Obstetrics and Gynecology Urinary Tract Infection, Adult [...] condition if: (more content not included)... Normal [facility] CNPNon 10-11-2022 CNPN Telephone (WIQ) ----- DEYSI HERNANDEZ ([id number]) 1960 F Date Time Provider Department 10/11/22 CATHIE MOORE WIQ During your visit today, we recorded the following information about you: Cathie Moore, [facility] 10/11/2022 12:57 PM Signed Smoking Cessation Navigation Outcome of contact: Left Message Comments: A voicemail has been left for this patient regarding Tobacco Cessation support options. If this patient has any further questions they can email us at or call us at [phone]. [employer] Perl Developer/Smoking Cessation Navigator: [facility] Allergies As of Date: 10/11/2022 Noted Allergy [...] Encounter Status:Closed by CATHIE MOORE on 10/11/[address] [facility] Sami 10-09-2022 CNOV Office Visit (ELPIDIO ) ----- DEYSI HERNANDEZ ([id number]) 1960 F Date Time Provider Department 10/09/22 2:00 PM GURMEET OJEDA During your visit today, we recorded the following information about you: Temperature Pulse Blood pressure Weight 97.5 degrees 60/minute 91/60 71.3 kg Height 1.575 m Rosie Harris DO 10/09/2022 5:08 PM Signed [facility] NEPHROLOGY AND HYPERTENSION [facility] SERVICE [...] ESRD, hearing loss. 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 Normal [facility] URINALYSIS, REFLEX MICROSCOP ICon 10-09-2022 Bacteria LM.HPF (Urine sed) [#/Area] Few Abnormal None Seen [facility] Comment on above: Order Comment: Speci men Type: URINE SPECIMEN Ordering Facility: [facility] Address: [address] [place] [address] Performed By: #### L [id number] #### [facility] CLIA [id number] [address] [place] [address] [place] Bilirubin Ql (U) Negative Normal Negative [facility] Comment on above: Order Comment: Speci men Type: URINE SPECIMEN Ordering Facility: [facility] Address: [address] [place], [place] [address] Performed By: #### L [id number] #### [facility] CLIA [id number] [address] [place] [address] [place] Clarity (Unsp spec) Cloudy Abnormal Clear [facility] Comment on above: Order Comment: Speci men Type: URINE SPECIMEN Ordering Facility: [facility] Address: [address] [place], [place] [address] Performed By: #### L [id number] #### [facility] CLIA [id number] [address] [place] [address] [place] Color (U) Light Yellow Normal Yellow [facility] Comment on above: Order Comment: Speci men Type: URINE SPECIMEN Ordering Facility: [facility] Address: [address] [place], [place] [address] Performed By: #### L [id number] #### [facility] CLIA [id number] [address] [place] [address] [place] Epithelial cells LM.HPF (Urine sed) [#/Area] Few Normal [facility] Comment on above: Order Comment: Speci men Type: URINE SPECIMEN Ordering Facility: [facility] Address: [address] Performed By: #### L [id number] #### [facility] CLIA [id number] [address] [place] [address] [place] Glucose Test strip (U) [Mass/Vol] Negative Normal Trace, Negative [facility] Comment on above: Order Comment: Speci men Type: URINE SPECIMEN Ordering Facility: [facility] Address: [address] Performed By: #### L [id number] #### [facility] CLIA [id number] [address] [place] [address] [place] Hemoglobin Ql (U) Trace Normal Negative, Trace [facility] Comment on above: Order Comment: Speci men Type: URINE SPECIMEN Ordering Facility: [facility] Address: [address] Performed By: #### L [id number] #### [facility] CLIA [id number] [address] [place] [address] [place] Ketones Ql (U) Negative Normal Negative, Trace [facility] Comment on above: Order Comment: Speci men Type: URINE SPECIMEN Ordering Facility: [facility] Address: [address] Performed By: #### L [id number] #### [facility] CLIA [id number] [address] [place] [address] [place] Leukocyte esterase Test strip Ql (U) 250 Bonnie/uL Abnormal Negative, 25 Bonnie/uL [facility] Comment on above: Order Comment: Speci men Type: URINE SPECIMEN Ordering Facility: [facility] Address: [address] Performed By: #### L [id number] #### [facility] CLIA [id number] [address] [place] [address] [place] Nitrite Ql (U) 2+ Abnormal Negative [facility] Comment on above: Order Comment: Speci men Type: URINE SPECIMEN Ordering Facility: [facility] Address: [address] [place] [address] Performed By: #### L [id number] #### [facility] CLIA [id number] [address] [place] [address] [place] pH (U) 5.5 [pH] Normal 5.0-8.0 [facility] Comment on above: Order Comment: Speci men Type: URINE SPECIMEN Ordering Facility: [facility] Address: [address] [place] [address] Performed By: #### L [id number] #### [facility] CLIA [id number] [address] [place] [address] [place] Protein (U) [Mass/Vol] Negative Normal Trace , Negative [facility] Comment on above: Order Comment: Speci men Type: URINE SPECIMEN Ordering Facility: [facility] Address: [address] [place] [address] Performed By: #### L [id number] #### [facility] CLIA [id number] [address] [place] [address] [place] RBC LM.HPF (Urine sed) [#/Area] 0-3 /HPF Normal 0-3 /HPF [facility] Comment on above: Order Comment: Speci men Type: URINE SPECIMEN Ordering Facility: [facility] Address: [address] [place] [address] Performed By: #### L [id number] #### [facility] CLIA [id number] [address] [place] [address] [place] Specific gravity (U) [Rel density] 1.015 Normal 1.005-1.03 0 [facility] Comment on above: Order Comment: Speci men Type: URINE SPECIMEN Ordering Facility: [facility] Address: [address] [place] [address] Performed By: #### L [id number] #### [facility] CLIA [id number] [address] [place] [address] [place] Urobilinogen Ql (U) Negative Normal Negative [facility] Comment on above: Order Comment: Speci men Type: URINE SPECIMEN Order[facility]: [facility] Address: [address] [place] [address] Performed By: #### L [id number] #### [facility] CLIA [id number] [address] [place] [address] [place] WBC LM.HPF (Urine sed) [#/Area] /[HPF] Abnormal 0-5 /HPF [facility] Comment on above: Order Comment: Speci men Type: URINE SPECIMEN Ordering Facility: [facility] Address: [address] [place] [address] Performed By: #### L [id number] #### [facility] CLIA [id number] [address] [place] [address] [place] Bacteria LM.HPF (Urine sed) [#/Area] Few Abnormal None Seen /HPF [facility] Bilirubin Ql (U) Negative Negative [facility] Clarity (Unsp spec) Cloudy Abnormal Clear [facility] Color (U) Light Yellow Yellow [facility] Epithelial cells LM.HPF (Urine sed) [#/Area] Few [facility] Glucose Test strip (U) [Mass/Vol] Negative Trace, Negative [facility] Hemoglobin Ql (U) Trace Negative, Trace [facility] Ketones Ql (U) Negative Negative, Trace [facility] Leukocyte esterase Test strip Ql (U) 250 Bonnie/uL Abnormal Negative, 25 Bonnie/uL [facility] Nitrite Ql (U) 2+ Abnormal Negative [facility] pH (U) 5.5 [pH] 5.0 - 8.0 [facility] Protein (U) [Mass/Vol] Negative Trace , Negative [facility] RBC LM.HPF (Urine sed) [#/Area] 0-3 /HPF 0-3 /HPF [facility] Specific gravity (U) [Rel density] 1.015 1.005 - 1.030 [facility] Urobilinogen Ql (U) Negative Negative [facility] WBC LM.HPF (Urine sed) [#/Area] /[HPF] Abnormal 0-5 /HPF [facility] Consenton 09-03-2022 Consent [id number]#[id number]:1 27 Normal [facility] Registrationon 09-03-2022 Registration [id number]#[id number]:1 27 Normal [facility] 25([place])D3 [facility]-ncon 2022 25-hydroxyvitamin D3 [Mass/Vol] 34.5 ng/mL Normal 31.0-80.0 [facility] Comment on above: Order Comment: Speci men Type: BLOOD SPECIMEN Ordering Facility: [facility] Address: [address] [address] Result Comment: Clas sification of 25 [place] Vitamin D status: Deficiency/Insufficiency: < or = 30 ng/ml. Sufficiency/Optimal Levels: 31-80 ng/mL Toxicity: > 100 ng/mL. Test performed by chemiluminescent immunoassay. Performed By: #### 1 989-3 #### [facility] CLIA [id number] [address] [place] [address] [place] IMMUNOFIXATION SCREEN, SERUM on 08-23-2022 MPA RESULT No M protein is identified. Normal No M protein is identified . [facility] Comment on above: Order Comment: Speci men Type: BLOOD SPECIMEN Order[facility] Facility: [facility] Address: [address] [address] Performed By: #### I [facility] #### [facility] CLIA [id number] [facility] [address] [place] STAFF REVIEW (MPA) Reviewed by Cortes Alfredo MD, Ph.D ([id number]) [facility] Comment on above: Order Comment: Speci men Type: BLOOD SPECIMEN Ordering Facility: [facility] Address: [address] [place] [address] Performed By: #### I FESC #### [facility] CLIA [id number] [address] [place] [address] [place] IMMUNOGLOBULINS GAMon 2022 IgA [Mass/Vol] 218 mg/dL Normal 70-400 [facility] Comment on above: Order Comment: Speci men Type: BLOOD SPECIMEN Ordering Facility: [facility] Address: [address] [address] Performed By: #### S ERIMM #### [facility] CLIA [id number] [address] [place] [address] [place] IgG [Mass/Vol] 775 mg/dL Normal 700-1600 [facility] Comment on above: Order Comment: Speci men Type: BLOOD SPECIMEN Ordering Facility: [facility] Address: [address] [place] [address] Performed By: #### S ERIMM #### [facility] CLIA [id number] [address] [place] [address] [place] IgM [Mass/Vol] 129 mg/dL Normal 40-230 [facility] Comment on above: Order Comment: Speci men Type: BLOOD SPECIMEN Ordering Facility: [facility] Address: [address] [place] [address] Performed By: #### S ERIMM #### [facility] CLIA [id number] [address] [place] [address] [place] KAPPA/THAO,FREE,SERon 2022 Immunoglobulin light chains.kappa.free (S) [Mass/Vol] 26.1 mg/L High 3.3-19.4 [facility] Comment on above: Order Comment: Speci men Type: BLOOD SPECIMEN Order[facility] Facility: [facility] Address: [address] [place] [address] Result Comment: Rare ly, increased serum free light chains levels may not be detected or accurately quantified due to prozone phenomenon or in high viscosity samples using this immunoturbidimetric assay. Correlation with other laboratory results and clinical findings is recommended. The [place] Free Light Chain was performed using the Binding Site Optilite immunoturbidimetric method. Result obtained with different assay methods or kits cannot be used interchangeably. Performed By: #### K LFRS #### [facility] CLIA [id number] [address] [place] [address] Immunoglobulin light chains.kappa/Immunoglo bulin light chains.lambda (S) [Mass ratio] 1.01 Normal 0.26-1.65 [facility] Comment on above: Order Comment: Speci [facility] Type: BLOOD SPECIMEN Ordering Facility: [facility] Address: [address] [place] [address] Performed By: #### K LFRS #### [facility] CLIA [id number] [address] [place] [address] Immunoglobulin light chains.lambda.free [Mass/Vol] 25.9 mg/L Normal 5.7-26.3 [facility] Comment on above: Order Comment: Carmen [facility] Type: BLOOD SPECIMEN Order[facility] Facility: [facility] Address: [address] [place] [address] Result Comment: Rare ly, increased serum free [...] interchangeably. Performed By: #### K LFRS #### [facility] CLIA [id number] [address] [place] [address] [place] Renal function 2000 panelon 08-23-2022 Albumin [Mass/Vol] 4.3 g/dL Normal 3.9-4.9 [facility] Comment on above: Order Comment: Speci men Type: BLOOD SPECIMEN Ordering Facility: [facility] Address: [address] [address] Performed By: #### 2 4362-6 #### [facility] CLIA [id number] [address] [place] [address] [place] Anion gap [Moles/Vol] 9 mmol/L Normal 9-18 [facility] Comment on above: Order Comment: Speci men Type: BLOOD SPECIMEN Order[facility]: [facility] Address: [address] [address] Performed By: #### 2 4362-6 #### [facility] CLIA [id number] [address] [place] [address] [place] Calcium [Mass/Vol] 9.9 mg/dL Normal 8.5-10.2 [facility] Comment on above: Order Comment: Speci men Type: BLOOD SPECIMEN Order[facility] Facility: [facility] Address: [address] [address] Performed By: #### 2 4362-6 #### [facility] CLIA [id number] [address] [place] [address] [place] Chloride [Moles/Vol] 105 mmol/L Normal 97-105 [facility] Comment on above: Order Comment: Speci men Type: BLOOD SPECIMEN Order[facility] Address: [address] [address] Performed By: #### 2 4362-6 #### [facility] CLIA [id number] [address] [place] [address] [place] CO2 [Moles/Vol] 25 mmol/L Normal 22-30 [facility] Comment on above: Order Comment: Speci men Type: BLOOD SPECIMEN Order[facility]: [facility] Address: [address] Performed By: #### 2 4362-6 #### [facility] CLIA [id number] [address] [place] [address] [place] Creatinine [Mass/Vol] 1.42 mg/dL High 0.58-0.96 [facility] Comment on above: Order Comment: Carmen juarez Type: BLOOD SPECIMEN Order[facility] Facility: [facility] Address: [address] [id number] Performed By: #### 2 4362-6 #### [facility] CLIA [id number] [address] [place] [address] [place] ESTIMATED GLOMERULAR FILTRATION RATE 42 mL/min/1.73m??? Low >=60 [facility] Comment on above: Order Comment: Carmen juarez Type: BLOOD SPECIMEN Order[facility] Facility: [facility] Address: [address] Result Comment: Jody mated Glomerular Filtration Rate [...] GFR. Performed By: #### 2 4362-6 #### [facility] CLIA [id number] [address] [place] [address] [place] Glucose [Mass/Vol] 70 mg/dL Low 74-99 [facility] Comment on above: Order Comment: Carmen juarez Type: BLOOD SPECIMEN Order[facility] Address: [address] [place] [address] Result Comment: The [place] Diabetes Association (ADA) provides guidance for cutoff [...] Standards of Medical Care in Diabetes 2016, [place] Diabetes Association. Diabetes Care. 2016.39(Suppl 1). Performed By: #### 2 4362-6 #### [facility] [place] [id number] [address] [place] [address] [place] Phosphate [Mass/Vol] 2.5 mg/dL Low 2.7-4.8 [facility] Comment on above: Order Comment: Speci men Type: BLOOD SPECIMEN Order[facility] Facility[facility] Address: [address] [place] [address] Performed By: #### 2 4362-6 #### [facility] [place] [id number] [address] [place] [address] [place] Potassium [Moles/Vol] 4.8 mmol/L Normal 3.7-5.1 [facility] Comment on above: Order Comment: Speci men Type: BLOOD SPECIMEN Ordering Facility: [facility] Address: [address] [place] [address] Performed By: #### 2 4362-6 #### [facility] [place] [id number] [place] [address] [place] Sodium [Moles/Vol] 139 mmol/L Normal 136-144 [facility] Comment on above: Order Comment: Speci men Type: BLOOD SPECIMEN Ordering Facility: [facility] Address: [address] [place] [address] Performed By: #### 2 4362-6 #### [facility] [place] [id number] [place] [address] [place] Urea nitrogen [Mass/Vol] 18 mg/dL Normal 7-21 [facility] Comment on above: Order Comment: Speci men Type: BLOOD SPECIMEN Ordering Facility: [facility] Address: [address] [place] [address] Performed By: #### 2 4362-6 #### [facility] [place] [id number] [place] [address] [place] US KIDNEY/BLADDERon 08-24-19 23 US KIDNEY/BLADDER * * *Final Report* * * DATE OF EXAM: Aug 23 2022 2:15PM [facility] 1055 - KIDNEY/BLADDER / PROCEDURE REASON: Stage [...] residual bladder volume 4. Right renal cyst Treatment Specialist: [facility] Transcribe Date/Time: Aug 28 2022 8:25A Dictated by : ALEAH QUINN MD This examination was interpreted and the report reviewed and electronically signed by: ALEAH QUINN MD on Aug 28 2022 8:28AM EST [id number] [facility] 08-09-2022 [facility] Office Visit (ELPIDIO ) ----- DEYSI HERNANDEZ ([id number]) 1960 F Date Time Provider Department 08/09/22 3:00 PM GURMEET OJEDA During your visit today, we recorded the following information about you: Temperature Pulse Blood pressure Weight 97.7 degrees 65/minute 98/64 72.5 kg Height 1.575 m Debra Fishman MD 08/09/2022 7:02 PM Signed [facility] NEPHROLOGY AND HYPERTENSION [facility] SERVICE [...] loss. 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 Normal [facility] URINALYSIS, REFLEX MICROSCOP ICon 08-09-2022 Bilirubin Ql (U) Negative Normal Negative [facility] Comment on above: Order Comment: Speci men Type: URINE SPECIMEN Ordering Facility: [facility] Address: [address] [place] [address] Performed By: #### L [id number] #### [facility] CLIA [id number] [address] [place] [address] [place] Clarity (Unsp spec) Clear Normal Clear [facility] Comment on above: Order Comment: Speci men Type: URINE SPECIMEN Ordering Facility: [facility] Address: [address] [address] Performed By: #### L [id number] #### [facility] CLIA [id number] [address] [place] [address] [place] Color (U) Light Yellow Normal Yellow [facility] Comment on above: Order Comment: Speci men Type: URINE SPECIMEN Ordering Facility: [facility] Address: [address] [address] Performed By: #### L [id number] #### [facility] CLIA [id number] [address] [place] [address] [place] Glucose Test strip (U) [Mass/Vol] Negative Normal Trace, Negative [facility] Comment on above: Order Comment: Speci men Type: URINE SPECIMEN Ordering Facility: [facility] Address: [address] [address] Performed By: #### L [id number] #### [facility] CLIA [id number] [address] [place] [address] [place] Hemoglobin Ql (U) Negative Normal Negative, Trace [facility] Comment on above: Order Comment: Speci men Type: URINE SPECIMEN Ordering Facility: [facility] Address: [address] [address] Performed By: #### L [id number] #### [facility] CLIA [id number] [address] [place] [address] [place] Ketones Ql (U) Negative Normal Negative, Trace [facility] Comment on above: Order Comment: Speci men Type: URINE SPECIMEN Ordering Facility: [facility] Address: [address] [place] [address] Performed By: #### L [id number] #### [facility] CLIA [id number] [address] [place] [address] [place] Leukocyte esterase Test strip Ql (U) 75 Bonnie/uL Abnormal Negative, 25 Bonnie/uL [facility] Comment on above: Order Comment: Speci men Type: URINE SPECIMEN Ordering Facility: [facility] Address: [address] [place] [address] Performed By: #### L [id number] #### [facility] CLIA [id number] [address] [place] [address] [place] Nitrite Ql (U) Negative Normal Negative [facility] Comment on above: Order Comment: Speci men Type: URINE SPECIMEN Ordering Facility: [facility] Address: [address] [place], [place] [address] Performed By: #### L [id number] #### [facility] CLIA [id number] [address] [place] [address] [place] pH (U) 6.0 [pH] Normal 5.0-8.0 [facility] Comment on above: Order Comment: Speci men Type: URINE SPECIMEN Ordering Facility: [facility] Address: [address] [place], [place] [address] Performed By: #### L [id number] #### [facility] CLIA [id number] [address] [place] [address] [place] Protein (U) [Mass/Vol] Negative Normal Trace , Negative [facility] Comment on above: Order Comment: Speci men Type: URINE SPECIMEN Ordering Facility: [facility] Address: [address] [place] [address] Performed By: #### L [id number] #### [facility] CLIA [id number] [address] [place] [address] [place] Specific gravity (U) [Rel density] 1.009 Normal 1.005-1.03 0 [facility] Comment on above: Order Comment: Speci men Type: URINE SPECIMEN Ordering Facility: [facility] Address: [address] [place] [address] Performed By: #### L [id number] #### [facility] CLIA [id number] [address] [place] [address] [place] Urobilinogen Ql (U) Negative Normal Negative [facility] Comment on above: Order Comment: Speci men Type: URINE SPECIMEN Ordering Facility: [facility] Address: [address] [place] [address] Performed By: #### L [id number] #### [facility] CLIA [id number] [address] [place] [address] [place] Bilirubin Ql (U) Negative Negative [facility] Clarity (Unsp spec) Clear Clear [facility] Color (U) Light Yellow Yellow [facility] Glucose Test strip (U) [Mass/Vol] Negative Trace, Negative [facility] Hemoglobin Ql (U) Negative Negative, Trace [facility] Ketones Ql (U) Negative Negative, Trace [facility] Leukocyte esterase Test strip Ql (U) 75 Bonnie/uL Abnormal Negative, 25 Bonnie/uL [facility] Nitrite Ql (U) Negative Negative [facility] pH (U) 6.0 [pH] 5.0 - 8.0 [facility] Protein (U) [Mass/Vol] Negative Trace , Negative [facility] Specific gravity (U) [Rel density] 1.009 1.005 - 1.030 [facility] Urobilinogen Ql (U) Negative Negative [facility] Consent for Procedure/Surger yon 06-19-2022 Consent for Procedure/Surgery [id number]:12 7 Normal Ramirez [facility] Gastroenterology Office/Clin ic Noteon 06-16-2022 Gastroenterology Office/Clinic [...] colonoscopy at the beginning of 02/2022 in On license of [facility]. She states that they did [...] a few months ago at an outside facility/[place]. She was found to have a few polyps. She was advised to repeat her colonoscopy in 2027. ATTESTATION: Documentation services were performed after patient or guardian consented to allow Chandan Obregon to record this visit. MIKALA correctional treatment specialist and provider reviewed before signing. MIKALA: [...] Use:. Never (more content not included)... Normal [facility] Comment on above: Result Comment: Elec tronically Signed By: Berenice Joyner\.br\Date and Time Signed: 06/14/22 14:24 EDT\.br\Electronically Co-Signed By: Jamie BILLS MD\.br\Date and Time Co-Signed: 06/16/22 14:25 EDT [facility] 06-13-2022 Lab Reports [id number]:12 7 Normal [facility] LIPID PROFILEon 06-12-2022 CHOL-HDL RATIO NORM SEE BELOW Normal [facility] Comment on above: Result Comment: 3.3 - 4.4 LOW RISK 4.4 - 7.1 AVERAGE RISK 7.1 - 11.0 MODERATE RISK >11.0 HIGH RISK Performed By: #### L IPID, BMP #### [facility] [address] [place] [address] Dr. Moreno Amato Cholesterol [Mass/Vol] 178 mg/dL Normal <=200 Th e [facility] Comment on above: Performed By: #### L IPID, BMP #### [facility] [address] [address] [address] Moreno Amato Cholesterol in HDL [Mass/Vol] 39 mg/dL Critically low 40-60 [facility] Comment on above: Performed By: #### L IPID, BMP #### [facility] [address] [address] [address] Moreno Amato Cholesterol in LDL [Mass/Vol] 92.0 mg/dL Normal [facility] Comment on above: Performed By: #### L IPID, BMP #### [facility] [address] [place] [address] Dr. Moreno Amato Cholesterol.total/Chol esterol in HDL [Mass ratio] 4.6 {ratio} Normal [facility] Comment on above: Performed By: #### L IPID, BMP #### [facility] [address] [address] [address] Moreno Amato HDL NORMAL > or = 60 mg/dl - LO W CARDIOVASCULAR RISK <40 mg/dl - HIGH CARDIOVASCULAR RISK Normal [facility] Comment on above: Performed By: #### L IPID, BMP #### [facility] [address] [place] [address] Dr. Moreno Amato LDL CALC NORMAL SEE BELOW Normal [facility] Comment on above: Result Comment: <100 mg/dl OPTIMAL 100 - 129 mg/dl NEAR OR ABOVE OPTIMAL 130 - 159 mg/dl BORDERLINE HIGH 160 - 189 mg/dl HIGH >190 mg/dl VERY HIGH Performed By: #### L IPID, BMP #### [facility] [address] [place] [address] Dr. Moreno Amato Triglyceride [Mass/Vol] 235 mg/dL Critically high <=150 [facility] Comment on above: Performed By: #### L IPID, BMP #### [facility] [address] [place] [address] Dr. Moreno Amato VLDL CALC 47.0 mg/dL Normal [facility] Comment on above: Performed By: #### L IPID, BMP #### [facility] [address] [place] [address] Dr. Moreno Amato PROF CHEM 8 (BAS METB)on Anion gap [Moles/Vol] 10.7 mmol/L Normal Th [facility] Comment on above: Performed By: #### L IPID, BMP #### [facility] [address] [place] [address] Dr. Moreno Amato Calcium [Mass/Vol] 9.6 mg/dL Normal 8.5-10.1 [facility] Comment on above: Performed By: #### L IPID, BMP #### [facility] [address] [place] [address] Dr. Moreno Amato Chloride [Moles/Vol] 104 mmol/L Normal 98-107 [facility] Comment on above: Performed By: #### L IPID, BMP #### [facility] [address] [place] [address] Dr. Moreno Amato CO2 [Moles/Vol] 31.6 mmol/L Normal 21.0-32.0 [facility] Comment on above: Performed By: #### L IPID, BMP #### [facility] [address] [place] [address] Dr. Moreno Amato Creatinine [Mass/Vol] 1.58 mg/dL Critically high 0.55-1.02 [facility] Comment on above: Performed By: #### L IPID, BMP #### [facility] [address] [place] [address] Dr. Moreno Amato EGFR-AF CENTRAL AFRICAN 40 mL/min/1.73m2 Critically low >=60 [facility] Comment on above: Performed By: #### L IPID, BMP #### [facility] [address] [place] [address] Dr. Moreno Amato EGFR-NON AF CENTRAL AFRICAN 33 mL/min/1.73m2 Critically low >=60 [facility] Comment on above: Performed By: #### L IPID, BMP #### [facility] [address] [place] [address] Dr. Moreno Amato Glucose [Mass/Vol] 79 mg/dL Normal 74-106 [facility] Comment on above: Performed By: #### L IPID, BMP #### [facility] [address] [place] [address] Dr. Moreno Amato Potassium [Moles/Vol] 4.3 mmol/L Normal 3.5-5.1 [facility] Comment on above: Performed By: #### L IPID, BMP #### [facility] [address] [place] [address] Dr. Moreno Amato Sodium [Moles/Vol] 142 mmol/L Normal 136-145 [facility] Comment on above: Performed By: #### L IPID, BMP #### [facility] [address] [place] [address] Dr. Moreno Amato Urea nitrogen [Mass/Vol] 21.0 mg/dL Critically high 7.0-18.0 [facility] Comment on above: Performed By: #### L IPID, BMP #### [facility] [address] [place] [address] Dr. Moreno Amato Urea nitrogen/Creatinine [Mass ratio] 13.3 mg/mg Normal [facility] Comment on above: Performed By: #### L IPID, BMP #### [facility] [address] [place] [address] Dr. Moreno Amato URINE T PROTEIN CREAT RATIOo n 06-12-2022 Protein (U) [Mass/Vol] 8.8 mg/dL Normal <=12.0 [facility] Comment on above: Performed By: #### A MY, CMP, LIPA #### [facility] [address] [place] [address] Dr. Moreno Amato UR PROT CREAT RAT 0.12 Normal [facility] Comment on above: Performed By: #### A MY, CMP, LIPA #### [facility] [address] [place] [address] Dr. Moreno Amato URINE CREAT 70.82 mg/dL Normal 20.00-300. 00 [facility] Comment on above: Performed By: #### A MY, CMP, LIPA #### [facility] [address] [place], [place] [address] Dr. Moreno Amato Patient Educationon 06-07-19 Patient [...] health care provider. General instructions ? Take oupv-rqz-wvzdoip and prescription medicines only as told by [...] monitor yo (more content not included)... Normal [facility] Urology Office/Clinic Noteon 06-06-2022 Urology Office/Clinic Note [...] in 1 week(s) for session #4 Ordered: 44015 EMG anal/urethral sphincter no needle 73908 Biofeedback training, perineal muscles, anorectal 04703 Anorectal Manometry 63091 ELECTRICAL STIMULATION 62834 Urnls Dip Stick Auto w/o Microscopy POC 38355 Follow-up No qualifying data available 1 WEEK [...] Protein Urine Dipstick: Negative (06/06/22 10:58:00) Specific [place] Urine Dipstick: 1.015 (06/06/22 10:58:00) Urine Appearance Urine Dipstick: Clear (06/06/22 10:58:00) Urine Color Urine Dipstick: Yellow (06/06/22 10:58:00) Urobilinogen Urine Dipstick: Normal 0.2-1 EU/dl (06/06/22 10:58:00) pH Urine Dipstick: 5.5 (06/06/22 10:58:00) Normal [facility] Comment on above: Result Comment: Elec tronically Signed By: TRUDY ADRIAN PA-C\.br\Date and Time Signed: 06/06/22 11:24 EDT HEMOGLOBINon 04-30-2022 Hemoglobin (Bld) [Mass/Vol] 15.3 g/dL Normal 12.0-16.0 [facility] Comment on above: Performed By: #### A MY, CMP, LIPA #### [facility] [address] [address] [address] Moreno Amato LIPID PROFILEon 03-27-2022 CHOL-HDL RATIO NORM SEE BELOW Normal [facility] Comment on above: Result Comment: 3.3 - 4.4 LOW RISK 4.4 - 7.1 AVERAGE RISK 7.1 - 11.0 MODERATE RISK >11.0 HIGH RISK Performed By: #### A MY, CMP, LIPA #### [facility] [address] [address] [address] Moreno Amato Cholesterol [Mass/Vol] 217 mg/dL Critically high <=200 [facility] Comment on above: Performed By: #### A MY, CMP, LIPA #### [facility] [address] [address] [address] Moreno Amato Cholesterol in HDL [Mass/Vol] 42 mg/dL Normal 40-60 [facility] Comment on above: Performed By: #### A MY, CMP, LIPA #### [facility] [address] [place] [address] Dr. Moreno Amato Cholesterol in LDL [Mass/Vol] 121.6 mg/dL Normal [facility] Comment on above: Performed By: #### A MY, CMP, LIPA #### [facility] [address] [address] [address] Moreno Amato Cholesterol.total/Chol esterol in HDL [Mass ratio] 5.2 {ratio} Normal [facility] Comment on above: Performed By: #### A MY, CMP, LIPA #### [facility] [address] [place] [address] Dr. Moreno Amato HDL NORMAL > or = 60 mg/dl - LO W CARDIOVASCULAR RISK <40 mg/dl - HIGH CARDIOVASCULAR RISK Normal [facility] Comment on above: Performed By: #### A MY, CMP, LIPA #### [facility] [address] [address] [address] Moreno Amato LDL CALC NORMAL SEE BELOW Normal [facility] Comment on above: Result Comment: <100 mg/dl OPTIMAL 100 - 129 mg/dl NEAR OR ABOVE OPTIMAL 130 - 159 mg/dl BORDERLINE HIGH 160 - 189 mg/dl HIGH >190 mg/dl VERY HIGH Performed By: #### A MY, CMP, LIPA #### [facility] [address] [address] [address] Moreno Amato Triglyceride [Mass/Vol] 267 mg/dL Critically high <=150 [facility] Comment on above: Performed By: #### A MY, CMP, LIPA #### [facility] [address] [place] [address] Dr. Moreno Amato VLDL CALC 53.4 mg/dL Normal [facility] Comment on above: Performed By: #### A MY, CMP, LIPA #### [facility] [address] [place] [address] Dr. Moreno Amato PROF CHEM 8 (BAS METB)on Anion gap [Moles/Vol] 11.1 mmol/L Normal [facility] Comment on above: Performed By: #### A MY, CMP, LIPA #### [facility] [address] [place] [address] Dr. Moreno Amato Calcium [Mass/Vol] 9.2 mg/dL Normal 8.5-10.1 [facility] Comment on above: Performed By: #### A MY, CMP, LIPA #### [facility] [address] [place] [address] Dr. Moreno Amato Chloride [Moles/Vol] 104 mmol/L Normal 98-107 [facility] Comment on above: Performed By: #### A MY, CMP, LIPA #### [facility] [address] [place] [address] Dr. Moreno Amato CO2 [Moles/Vol] 27.4 mmol/L Normal 21.0-32.0 [facility] Comment on above: Performed By: #### A MY, CMP, LIPA #### [facility] [address] [address] [address] Moreno Amato Creatinine [Mass/Vol] 1.30 mg/dL Critically high 0.55-1.02 [facility] Comment on above: Performed By: #### A MY, CMP, LIPA #### [facility] [address] [address] [address] Moreno Amato EGFR-AF CENTRAL AFRICAN 51 mL/min/1.73m2 Critically low >=60 [facility] Comment on above: Performed By: #### A MY, CMP, LIPA #### [facility] [address] [address] [address] Moreno Amato EGFR-NON AF CENTRAL AFRICAN 42 mL/min/1.73m2 Critically low >=60 [facility] Comment on above: Performed By: #### A MY, CMP, LIPA #### [facility] [address] [address] [address] Moreno Amato Glucose [Mass/Vol] 102 mg/dL Normal 74-106 [facility] Comment on above: Performed By: #### A MY, CMP, LIPA #### [facility] [address] [address] [address] Moreno Amato Potassium [Moles/Vol] 4.5 mmol/L Normal 3.5-5.1 [facility] Comment on above: Performed By: #### A MY, CMP, LIPA #### [facility] [address] [address] [address] Moreno Amato Sodium [Moles/Vol] 138 mmol/L Normal 136-145 [facility] Comment on above: Performed By: #### A MY, CMP, LIPA #### [facility] [address] [address] [address] Moreno Amato Urea nitrogen [Mass/Vol] 23.0 mg/dL Critically high 7.0-18.0 [facility] Comment on above: Performed By: #### A MY, CMP, LIPA #### [facility] [address] [address] [address] Moreno Amato Urea nitrogen/Creatinine [Mass ratio] 17.7 mg/mg Normal [facility] Comment on above: Performed By: #### A MY, CMP, LIPA #### [facility] [address] [address] [address] Moreno ROSEOTon 03-27-2022 AST [Catalytic activity/Vol] 24 U/L Normal 15-37 [facility] Comment on above: Performed By: #### A MY, CMP, LIPA #### [facility] [address] [address] [address] Moreno Amato SGPTon 03-27-2022 ALT [Catalytic activity/Vol] 20 U/L Normal 14-59 [facility] Comment on above: Performed By: #### A MY, CMP, LIPA #### [facility] [address] [place] [address] Dr. Moreno Amato COVID/FLU RT-PCRon SARS-CoV-2 (COVID-19) RNA ELISA+probe Ql (Unsp spec) Negative [employer] Other COVID/FLU RT-PCR Negative [facility] [employer] Other Quick Strepon 03-19-2022 S. pyogenes Org specific cx Ql (Throat) Negative [employer] Other Quick Strep [employer] Other Tobacco Screening.on 023 Adult depression screening assessment No [facility] y 250 DO Work Phone: Fall risk assessment c) Not medically indicated [facility] y 250 DO Work Phone: Tobacco use status [facility] b) No [facility] 250 DO Work Phone: PAP ACOG PANEL 2: 30 to 65on 03-02-2022 . . Normal [facility] Comment on above: Result Comment: Perf ormed at: WB Performed By: #### A MY, CMP, LIPA #### [facility] [address] [place] [address] Dr. Moreno Amato Age Gdln ACOG Testing 30-65 Normal [facility] Comment on above: Performed By: #### A MY, CMP, LIPA #### [facility] [address] [place] [address] Dr. Moreno Amato DIAGNOSIS: Comment Normal [facility] Comment on above: Result Comment: NEGA TIVE FOR INTRAEPITHELIAL LESION OR MALIGNANCY. Performed at: WB Performed By: #### A MY, CMP, LIPA #### [facility] [address] [place] [address] Dr. Moreno Amato HPV Aptima Negative Normal Negative [facility] Comment on above: Result Comment: This nucleic acid amplification test detects fourteen high-risk HPV types (16,18,31,33,35,39,45,51,52,56,58,59,66,68) without differentiation. Performed at: =G Performed By: #### A MY, CMP, LIPA #### [facility] [address] [place] [address] Dr. Moreno Amato HPV Genotype Reflex Comment Normal [facility] Comment on above: Result Comment: Crit eria not met, HPV Genotype not performed. Performed at: WB Performed By: #### A MY, CMP, LIPA #### [facility] [address] [place] [address] Dr. Moreno Amato Methodology: Comment Normal [facility] Comment on above: Result Comment: This liquid based ThinPrep(R) pap test was screened with the use of an image guided system. Performed at: WB Performed By: #### A MY, CMP, LIPA #### [facility] [address] [place] [address] Dr. Moreno Amato Note: Comment Normal [facility] Comment on above: Result Comment: The [...] By: #### A MY, CMP, LIPA #### [facility] [address] [place] [address] Dr. Moreno Amato Performed by: Comment Normal [facility] Comment on above: Result Comment: Maria Luisa Chou, Tactical Intelligence Officer (ASCP) Performed at: WB Performed By: #### A MY, CMP, LIPA #### [facility] [address] [place], [place] [address] Dr. Moreno Amato Specimen adequacy: Comment Normal [facility] Comment on above: Result Comment: Sati sfactory for evaluation. Endocervical and/or squamous metaplastic cells (endocervical component) are present. Performed at: WB Performed By: #### A MY, CMP, LIPA #### [facility] [address] [place], [place] [address] Dr. Moreno Amato XR CHEST 2 Von [...] by: AMY ROSS Date: 2022-02-19 22:40 Normal [facility] CARDIAC STRESS/REST INJE CTIONon 01-23-2022 [facility] CARDIAC STRESS/REST INJECTION Patient Name: DEYSI HERNANDEZ STUDY: MYOCARDIAL PERFUSION STRESS TEST WITH LEXISCAN Performing facility: [facility], [address] [place] [address], [address], [place] [address] [facility] Provider: Carlene Beal MD, FACC PCP: Dr. Mariann Thompson Supervising provider: Autumn Guidry RN, SPANISH LITERATURE PROFESSOR INDICATION: Chest discomfort Elevated troponin Hyperlipidemia HISTORY: Gender: F; Age: 61 y/o ; Height: 0 cm; Weight: 71.2272387 kg. High Cholesterol; HTN; Chest Pain; Quit smoking <1 year ago. COMPARISON: No comparison. ACCESSION NUMBER(S): [id number]; [id number]; [id number] ORDERING CLINICIAN: MARQUEZ BEAL TECHNIQUE: ONE DAY [...] Electronically signed by: WAQAR MARTINEZ MD Normal [facility] No Panel Informationon 01-23 Normal [facility] 600 DO Work Phone: Tobacco Screening.on 022 Fall risk assessment a) No falls within the last year [facility] 600 DO Work Phone: Tobacco use status CPHS b) No [facility] 600 DO Work Phone: MG MAMM SCREEN 3D NIRMALA CADon 10-30-2021 MG MAMM SCREEN 3D NIRMALA CAD Patient: DEYSI HERNANDEZ Exam Date: 10/30/2021 : 1960 Gender:F Ordering : SHAIKH Ford THOMPSON . Admission #: [id number] Family : Order #: [id number] CLICK HERE TO VIEW EXAM RADIOLOGY REPORT PROCEDURE: MAMMOGRAM SCREENING 3D BILATERAL CAD COMPARISON: MG MAMM NIRMALA SCRN W CAD DIG, 12/05/2012. INDICATIONS: Screening mammography Calculator Name NCI Breast Cancer Risk Assessment Tool 5 Year Breast Cancer Risk 1.00% Lifetime Breast Cancer Risk 5.50% Personal Breast Cancer No Personal Ovarian Cancer No Treatments None Family Cancers None LOCATION: [facility] BREAST COMPOSITION: Scattered areas fibroglandular density. [...] M.D. on 10/31/2021 at 08:52 Normal [facility] Cardiac Stress Teston 2021 Cardiac Stress Test [address], [place] [address] Exercise Stress Test Patient Name: DEYSI HERNANDEZ Ordering Physician: [id number] Beal MD Study Date: 10/17/2021 Reading Physician: [id number] Newman MD, [facility] MRN/PID: [id number] Supervising Physician: [id number] Jaycob Newman MD, [facility] Accession/Order#: [id number] Referring Physician: [id number] BEAL Date of : 1960 PCP: Mariann THOMPSON Gender: M Fellow: Height: 162.56 cm Nurse: Jackie Shen RN Weight: 68.95 kg Community Support Specialist: KYLE BSA: 1.74 m2 Technologist: BMI: 26.09 kg/m2 Additional Staff: Age: 61 years cc report to: Patient Location: cc report to: [id number] Marquez Beal MD Study Type: Cardiac Stress Test Diagnosis/ICD: R07.89-Other chest pain Indication: Chest Pain Atypical Procedure/CPT: Stress Test Interpretation-[id number]; Stress Test Supervision-[id number] Falls Risk: Low: Patient has low risk [...] The adequate level of stress was achieved. [id number] Jaycob Newman MD, [facility] Electronically signed on 10/23/2021 at 12:29:13 PM Final Normal [facility] Cardiac Stress Test Please click on the link to view the study images [facility] Work Phone: Cardiac Stress Test MP-No [facility] 250 DO Work Phone: Creatinine and Glomerular fi ltration rate.predicted panel (S/P/Bld)Ordered By: Marquez Beal on 09-18-2021 Creatinine [Mass/Vol] 1.10 mg/dL 0.44-1.03 [facility] Estimated glomerular filtrat ion rate (GFR) non- AmericanOrdered By: Marquez Beal on 09-18-2021 GFR/1.73 sq M.predicted among non-blacks MDRD (S/P/Bld) [Vol rate/Area] 51 mL/Min [facility] No Panel InformationOrdered By: Marquez Beal on 09-18-2021 Estimated GFR () > 60 mL/Min [facility] Comment on above: GFR estimated refere nce range: According to KDOQI guidelines, <60 ml/min/1.73m2 is sufficient to diagnose a patient with chronic kidney disease. Pharmacy Creatinine Clearance (Chem N/A [facility] No Panel Informationon 09-18 9.8\S\9.8 Normal 8.2-10.2 [facility] [address] DO Work Phone: Comment on above: PERFORMED BY:[place] [address] [address] [place], [place] [phone] MEDICAL DIRECTORJERAMY CALDWELL M.D. 25.1\S\25.1 Normal 22.0-30.0 [facility] [address] DO Work Phone: 100\S\100 Normal 95-114 [facility] 250 DO Work Phone: 3.9\S\3.9 Normal 3.5-5.1 [facility] 250 DO Work Phone: 138\S\138 Normal 136-146 [facility] 250 DO Work Phone: > 60 Normal [facility] DO Work Phone: Comment on above: GFR estimated refere nce range: According to KDOQI guidelines, <60 ml/min/1.73m2 is sufficient to diagnose a patient with chronic kidney disease. 51\S\51 Normal [facility] Work Phone: 1.10\S\1.10 above high threshold 0.44-1.03 [facility] 250 DO Work Phone: 15\S\15 Normal 9-23 [facility] 250 DO Work Phone: 95\S\95 Normal 70-100 [facility] y 250 DO Work Phone: Comment on above: Random Glucose Refer ence Range is dependent on time and content of last meal. Glucose of more than 200 mg/dL in a nonstressed, ambulatory subject supports the diagnosis of Diabetes Mellitus. ADA recommended reference range Serum or plasma calcium teagan urement (mass/volume)Ordered By: Marquez Beal on 09-18-2021 Calcium [Mass/Vol] 9.8 mg/dL 8.2-10.2 [facility] Serum or plasma chloride sophia surement (moles/volume)Ordered By: Marquez Beal on 09-18-2021 Chloride [Moles/Vol] 100 mmol/L 95-114 [facility] Serum or plasma glucose teagan urement (mass/volume)Ordered By: Marquez Beal on 09-18-2021 Glucose [Mass/Vol] 95 mg/dL 70-100 [facility] Comment on above: ADA recommended refe rence range Random Glucose Reference Range is dependent on time and content of last meal. Glucose of more than 200 mg/dL in a nonstressed, ambulatory subject supports the diagnosis of Diabetes Mellitus. Serum or plasma potassium me asurement (moles/volume)Ordered By: Marquez Beal on 09-18-2021 Potassium [Moles/Vol] 3.9 mmol/L 3.5-5.1 [facility] Serum or plasma sodium measu rement (moles/volume)Ordered By: Marquez Beal on 09-18-2021 Sodium [Moles/Vol] 138 mmol/L 136-146 [facility] Serum or plasma total carbon dioxide measurement (moles/volume)Ordered By: Marquez Beal on 09-18-2021 CO2 [Moles/Vol] 25.1 mmol/L 22.0-30.0 [facility] Serum or plasma urea nitroge n measurement (mass/volume)Ordered By: Marquez Beal on 09-18-2021 Urea nitrogen [Mass/Vol] 15 mg/dL 9-23 [facility] Tobacco Screening.on 022 Adult depression screening assessment No [facility] 250 DO Work Phone: Fall risk assessment a) No falls within the last year [facility] 250 DO Work Phone: Tobacco use status CPHS a) Yes [facility] 250 DO Work Phone: Tobacco Screening. Yes [facility] 250 DO Work Phone: Bacterial blood cultureOrder ed By: Bong Bansal on 08-19-2021 Bacteria identified Cx Nom (Bld) NO GROWTH 5 DAYS [facility] Basophils Auto (Bld) [#/Vol] Ordered By: Alaina Arce on 08-17-2021 Basophils (Bld) [#/Vol] 0.1 10*3/uL 0.0-0.2 [facility] Basophils/100 WBC Auto (Bld) Ordered By: Alaina Arce on 08-17-2021 Basophils/100 WBC (Bld) 0.7 % . [facility] Blood hemoglobin measurement (mass/volume)Ordered By: Alaina Arce on 08-17-2021 Hemoglobin (Bld) [Mass/Vol] 15.0 g/dL 11.8-15.4 [facility] Blood leukocytes automated c ount (number/volume)Ordered By: Alaina Arce on 08-17-2021 WBC (Bld) [#/Vol] 10.0 10*3/uL 4.5-11.0 [facility] Creatinine and Glomerular fi ltration rate.predicted panel (S/P/Bld)Ordered By: Alaina Arce on 08-17-2021 Creatinine [Mass/Vol] 1.27 mg/dL 0.44-1.03 [facility] Eosinophils Auto (Bld) [#/Vo l]Ordered By: Alaina Arce on 08-17-2021 Eosinophils (Bld) [#/Vol] 0.2 10*3/uL 0.0-0.45 [facility] Eosinophils/100 WBC Auto (Bl d)Ordered By: Alaina Arce on 08-17-2021 Eosinophils/100 WBC (Bld) 1.8 % . [facility] Erythrocyte distribution wid th Auto (RBC) [Ratio]Ordered By: Alaina Arce on 08-17-2021 Erythrocyte distribution width (RBC) [Ratio] 12.7 % 11.9-15.3 [facility] Estimated glomerular filtrat ion rate (GFR) non- AmericanOrdered By: Alaina Arce on 08-17-2021 GFR/1.73 sq M.predicted among non-blacks MDRD (S/P/Bld) [Vol rate/Area] 43 mL/Min [facility] Hematocrit Auto (Bld) [Volum e fraction]Ordered By: Alaina Arce on 08-17-2021 Hematocrit (Bld) [Volume fraction] 42.6 % 34.0-46.4 [facility] Laboratory - Hematology and Cell countsOrdered By: Alaina Arce on 08-17-2021 Nucleated RBC/100 WBC (Bld) [Ratio] 0.0 % 0-0.5 [facility] Lymphocytes Auto (Bld) [#/Vo l]Ordered By: Alaina Arce on 08-17-2021 Lymphocytes (Bld) [#/Vol] 2.4 10*3/uL 1.00-4.8 [facility] Lymphocytes/100 WBC Auto (Bl d)Ordered By: Alaina Arce on 08-17-2021 Lymphocytes/100 WBC (Bld) 23.7 % . [facility] MCH Auto (RBC) [Entitic mass ]Ordered By: Alaina Arce on 08-17-2021 MCH (RBC) [Entitic mass] 31.0 pg 24.7-34.3 [facility] MCHC Auto (RBC) [Mass/Vol]Or dered By: Alaina Arce on 08-17-2021 MCHC (RBC) [Mass/Vol] 35.3 g/dL 32.0-35.0 [facility] MCV Auto (RBC) [Entitic vol] Ordered By: Alaina Arce on 08-17-2021 MCV (RBC) [Entitic vol] 87.8 fL 80-100 [facility] Monocytes Auto (Bld) [#/Vol] Ordered By: Alaina Arce on 08-17-2021 Monocytes (Bld) [#/Vol] 1.0 10*3/uL 0.0-0.8 [facility] Monocytes/100 WBC Auto (Bld) Ordered By: Alaina Arce on 08-17-2021 Monocytes/100 WBC (Bld) 10.2 % . [facility] Neutrophils Auto (Bld) [#/Vo l]Ordered By: Alaina Arce on 08-17-2021 Neutrophils (Bld) [#/Vol] 6.3 10*3/uL 1.8-7.7 [facility] Neutrophils/100 WBC Auto (Bl d)Ordered By: Alaina Arce on 08-17-2021 Neutrophils/100 WBC (Bld) 63.6 % . [facility] No Panel InformationOrdered By: Alaina Arce on 08-17-2021 Estimated GFR () 52 mL/Min [facility] Comment on above: GFR estimated refere nce range: According to KDOQI guidelines, <60 ml/min/1.73m2 is sufficient to diagnose a patient with chronic kidney disease. Pharmacy Creatinine Clearance (Chem 47.54 [facility] Platelet mean volume Auto (B ld) [Entitic vol]Ordered By: Alaina Arce on 08-17-2021 Platelet mean volume (Bld) [Entitic vol] 8.5 fL 6.3-10.7 [facility] Platelets Auto (Bld) [#/Vol] Ordered By: Alaina Arce on 08-17-2021 Platelets (Bld) [#/Vol] 241 10*3/uL 150-450 [facility] RBC Auto (Bld) [#/Vol]Ordere d By: Alaina Arce on 08-17-2021 RBC (Bld) [#/Vol] 4.85 10*6/uL 3.60-5.00 [facility] Serum or plasma calcium teagan urement (mass/volume)Ordered By: Alaina Arce on 08-17-2021 Calcium [Mass/Vol] 8.9 mg/dL 8.2-10.2 [facility] Serum or plasma chloride sophia surement (moles/volume)Ordered By: Alaina Arce on 08-17-2021 Chloride [Moles/Vol] 101 mmol/L 95-114 [facility] Serum or plasma glucose teagan urement (mass/volume)Ordered By: Alaina Arce on 08-17-2021 Glucose [Mass/Vol] 132 mg/dL 70-100 [facility] Comment on above: ADA recommended refe rence range Random Glucose Reference Range is dependent on time and content of last meal. Glucose of more than 200 mg/dL in a nonstressed, ambulatory subject supports the diagnosis of Diabetes Mellitus. Serum or plasma potassium me asurement (moles/volume)Ordered By: Alaina Arce on 08-17-2021 Potassium [Moles/Vol] 2.9 mmol/L 3.5-5.1 [facility] Comment on above: Results called at 0721 on 08/17/21 Serum or plasma sodium measu rement (moles/volume)Ordered By: Alaina Arce on 08-17-2021 Sodium [Moles/Vol] 137 mmol/L 136-146 [facility] Serum or plasma total carbon dioxide measurement (moles/volume)Ordered By: Alaina Arce on 08-17-2021 CO2 [Moles/Vol] 25.3 mmol/L 22.0-30.0 [facility] Serum or plasma urea nitroge n measurement (mass/volume)Ordered By: Alaina Arce on 08-17-2021 Urea nitrogen [Mass/Vol] 17 mg/dL 9-23 [facility] Albumin [Mass/volume] in Ser um or PlasmaOrdered By: Alaina Arce on 08-16-2021 Albumin [Mass/Vol] 3.1 g/dL 3.2-5.5 [facility] Globulin Calc (S) [Mass/Vol] Ordered By: Alaina Arce on 08-16-2021 Globulin (S) [Mass/Vol] 3.0 g/dL [facility] Protein [Mass/volume] in Ser um or PlasmaOrdered By: Alaina Arce on 08-16-2021 Protein [Mass/Vol] 6.1 g/dL 6.1-7.9 [facility] Serum or plasma alanine spencer otransferase measurement without P-5'-P (enzymatic activiOrdered By: Alaina Arce on 08-16-2021 ALT No additional P-5'-P [Catalytic activity/Vol] 57 U/L 10-60 [facility] Serum or plasma albumin/glob ulin mass ratioOrdered By: Alaina Arce on 08-16-2021 Albumin/Globulin [Mass ratio] 1.0 {ratio} [facility] Serum or plasma alkaline calvin sphatase measurement (enzymatic activity/volume)Ordered By: Alaina Arce on 08-16-2021 ALP [Catalytic activity/Vol] 76 U/L 32-92 [facility] Serum or plasma aspartate am inotransferase measurement (enzymatic activity/volume)Ordered By: Alaina Arce on 08-16-2021 AST [Catalytic activity/Vol] 47 U/L 10-42 [facility] Serum or plasma total biliru bin measurement (mass/volume)Ordered By: Alaina Arce on 08-16-2021 Bilirubin [Mass/Vol] 1.5 mg/dL 0.3-1.2 [facility] Comment on above: Samples from patient s who have taken Naproxen have shown spurious elevation in Total Bilirubin levels. A metabolite of Naproxen, O-desmethylnaproxen, has been shown to interfere with the Alhaji-Joseph method for measuring Total Bilirubin. Amphetamine Screen Ql (U)Ord ered By: Alaina Arce on 08-15-2021 Amphetamines Ql (U) Negative Negative [facility] Antithrombin measurement (un its/volume) in platelet poor plasma by chromogenic methodOrdered By: Janet Hamm on 08-15-2021 Antithrombin Chromogenic method Qn (PPP) 113 % 75-135 [facility] Comment on above: Direct Xa inhibitor anticoagulants such as rivaroxaban, apixaban and edoxaban will lead to spuriously elevated antithrombin activity levels possibly masking a deficiency. Barbiturates [Presence] in U rineOrdered By: Alaina Arce on 08-15-2021 Barbiturates Ql (U) Negative Negative [facility] Benzodiazepines [Presence] i n UrineOrdered By: Alaina Arce on 08-15-2021 Benzodiazepines Ql (U) Negative Negative [facility] Beta 2 glycoprotein 1 IgG Ab [Units/volume] in SerumOrdered By: Janet Hamm on 08-15-2021 Beta 2 glycoprotein 1 IgG Qn (S) <9 0-20 [facility] Comment on above: Result Units: GPI Ig [...] glycoprotein 1 IgM Qn (S) <9 0-32 [facility] Comment on above: Result Units: GPI Ig [...] 08-15-2021 Cannabinoids Screen Ql (U) Negative Negative [facility] Comment on above: These are unconfirme d results and should not be used for legal purposes. Drug Cut-Off Concentration: AMPH 1000 ng/mL DRAKE 200 ng/mL UNIQUE 200 ng/mL COCM 300 ng/mL OP 300 ng/mL PCP 25 ng/mL THC 20 ng/mL Cardiolipin IgG Ab [Units/vo lume] in Serum by ImmunoassayOrdered By: Janet Hamm on 08-15-2021 Cardiolipin IgG IA Qn (S) <9 GPL U/mL 0-14 [facility] Comment on above: Negative: <15 Indeterminate: 15 - 20 Low-Med Positive: >20 - 80 High Positive: >80 Cardiolipin IgM Ab [Units/vo lume] in Serum by ImmunoassayOrdered By: Janet Hamm on 08-15-2021 Cardiolipin IgM IA Qn (S) 17 MPL U/mL 0-12 [facility] Comment on above: Negative: <13 Indeterminate: 13 - 20 Low-Med Positive: >20 - 80 High Positive: >80 Cholesterol [Mass/volume] in Serum or PlasmaOrdered By: Janet Hamm on 08-15-2021 Cholesterol [Mass/Vol] 259 mg/dL 140-200 [facility] Comment on above: Chol less than 200 m g/dl low risk Chol 201-239 mg/dl borderline risk Chol 240 mg/dl and greater high risk Cholesterol in LDL Calc [Mas s/Vol]Ordered By: Janet Hamm on 08-15-2021 Cholesterol in LDL [Mass/Vol] 176 mg/dL 0-100 [facility] Comment on above: LDL ATP III CLASSIFI CATION LDL less than 100 mg/dL Optimal LDL 100-129 mg/dL Near or above optimal LDL 130-159 mg/dL Borderline high LDL 160-189 mg/dL High LDL greater than 189 mg/dL Very high Cholesterol in VLDL Calc [Ma ss/Vol]Ordered By: Janet Hamm on 08-15-2021 Cholesterol in VLDL [Mass/Vol] 32 mg/dL [facility] Dilute Vinay's viper venom timeOrdered By: Janet Hamm on 08-15-2021 dRVVT Coag (PPP) [Time] 45.5 s 0.0-47.0 [facility] Free protein S measurementOr dered By: Janet Hamm on 08-15-2021 Protein S Free Ag IA Qn (PPP) 134 % 61-136 [facility] Functional protein C measure mentOrdered By: Janet Hamm on 08-15-2021 Protein C actual/normal Chromogenic method (PPP) [Rel catalytic activity/Vol] 158 % 73-180 [facility] - Drug toxicology Ordered By: Alaina Arce on 08-15-2021 Opiates Ql (U) Negative Negative [facility] Lupus anticoagulant [Interpr etation] in Platelet poor plasmaOrdered By: Janet Hamm on 08-15-2021 Lupus anticoagulant (PPP) [Interp] Comment: . [facility] Comment on above: No lupus anticoagula nt was detected. No Panel InformationOrdered By: Janet Hamm on 08-15-2021 Activated Protein C Resist Confirm 2.6 ratio 2.2-3.5 [facility] Comment on above: The APCR result may be falsely increased (masking an abnormal, low APCR result) in patients on direct Xa inhibitor (e.g., rivaroxaban, apixaban, edoxaban) or a direct thrombin inhibitor (e.g., dabigatran) anticoagulant therapy due to assay interference by these drugs. Phencyclidine Screen Ql (U)O rdered By: Alaina Arce on 08-15-2021 Phencyclidine Ql (U) Negative Negative [facility] Plasminogen measurementOrder ed By: Janet Hamm on 08-15-2021 Plasminogen actual/normal Chromogenic method (PPP) [Rel catalytic activity/Vol] 119 % 70-150 [facility] Platelet poor plasma ratio o f lupus anticoagulant-sensitive activated partial thromboOrdered By: Janet Hamm on 08-15-2021 aPTT.lupus sensitive.excess phospholipid actual/normal Coag (PPP) [Relative time] 38.6 sec 0.0-47.6 [facility] Prothrombin gene [id number] mut ation detectionOrdered By: Janet Hamm on 08-15-2021 F2 gene targeted mutation analysis Molgen Nom (Bld/Tiss) See comment . [facility] Comment on above: Result: c.*97G>A - N [...] the F2 gene and a c.1601G>A (p. Csy392Euv) variant in the F5 gene (commonly referred to as Factor V Leiden) have an approximately 20- fold increased risk for venous thromboembolism. Risks are likely to be even higher in more complex genotype combinations involving the F2 c.*97G>A variant and Factor V Leiden (PMID: 35090551). Additional risk factors include but are not [...] health care providers to discuss results at [phone] ([phone]). Test Details: Variant analyzed: c.*97G>A, previously referred to as [id number] Methods/Limitations: DNA analysis of the F2 gene [...] developed and its performance characteristics determined by [employer]. It has not been cleared or approved by the Food and Drug Administration. References: Taj S, Briana AK, Gilberto R, Bogdan WW, Yanick JH; ACMG Professional Practice and Guidelines Committee. Addendum: [employer] consensus statement on factor V Leiden mutation testing. Zoë Med. 2020Apr 22. doi: 10.1038/r10673-486-20951-z. PMID: 16362235. Edgardo KRISHNA. Prothrombin Thrombophilia. 2005Sep 11 [Updated 2020Mar 24]. In: Rober MP, Thaddeus HH, Iman RA, et al., editors. Aliyah(R) [Internet]. [place] ([place]): [facility]; 3692-5986. Available from: https://www.ncbi.nlm.nih.gov/books/WCM0433/ Ariel S, Briana AK, Aakash X, Grady B, Vidal EB, Siobhan P, Anny CS; [employer] [facility] Car Dumper Operator Helper Committee. Venous thromboembolism laboratory testing (factor V Leiden and factor II c.*97G>A), 2018 update: a technical standard of the [employer] and [employer] ([employer]MG). Zoë Med. 2018 Jan;20(12):0968-0826. doi: 10.1038/x95488-583-8473-b. Epub 2017Nov 22. PMID: 52199383. Evon Negron, PhD, [facility] Otis Guthrie, PhD, [facility]AC[facility] Rehan Goodson, PhD, [employer] Nick Bergeron, PhD, [employer] W Mona Pagan, PhD, [employer] Vee Mera, PhD, [employer] Gregoria Carrasco, PhD, FAC Performed at: [facility] [address] [id number] Press Supervisor: Harshad Acosta PhD, Phone: [phone] Performed at: - [address] [id number] Press Supervisor: Veronica Ring MD, Phone: [phone] Performed at: [facility] [address] [place], [place] [id number] Press Supervisor: Becky Cabezas [facility], Phone: [phone] Serum or plasma high density lipoprotein (HDL) cholesterol measurementOrdered By: Janet Hamm on 08-15-2021 Cholesterol in HDL [Mass/Vol] 50 mg/dL 35-85 [facility] Comment on above: HDL CHOL ATP-III CLA SSIFICATION Cardiovascular Risk HDL > or equal to 60 mg/dL LOW HDL < 40 mg/dL HIGH Serum or plasma homocysteine measurement (moles/volume)Ordered By: Janet Hamm on 08-15-2021 Homocysteine [Moles/Vol] 12.8 umol/L 0.0-14.5 [facility] Serum or plasma total choles terol/high density lipoprotein (HDL) cholesterol mass ratOrdered By: Janet Hamm on 08-15-2021 Cholesterol.total/Chol esterol in HDL [Mass ratio] 5.2 {ratio} <5.0 [facility] Triglyceride [Mass/volume] i n Serum or PlasmaOrdered By: Janet Hamm on 08-15-2021 Triglyceride [Mass/Vol] 164 mg/dL 35-149 [facility] Comment on above: TRIG ATP III CLASSIF ICATION TRIG less than 150 mg/dL Normal TRIG 150-199 mg/dL Borderline high TRIG 200-500 mg/dL High TRIG greater than 500 mg/dL Very high Standard traceable to the Center for Disease Conrtrol and Prevention (CDC) test method. Urine cocaine detectionOrder ed By: Alaina Arce on 08-15-2021 Cocaine Ql (U) Negative Negative [facility] Urine culture routineOrdered By: Alaina Arce on 08-15-2021 Bacteria identified Cx Nom (U) 2 Days [facility] aPTT.lupus sensitive (LA scr een)Ordered By: Janet Hamm on 08-15-2021 aPTT.lupus sensitive Coag (PPP) [Time] 35.2 sec 0.0-51.9 [facility] aPTT.lupus sensitive/aPTT.sheryl pus sensitive W excess phospholipid (screen to confirm raOrdered By: Janet Hamm on 08-15-2021 aPTT.lupus sensitive/aPTT.lupus sensitive W excess phospholipid Coag (PPP) [Ratio] 0.94 Ratio 0.00-1.34 [facility] Activated partial thrombopla stin time (aPTT) in platelet poor plasma by coagulation aOrdered By: Bong Bansal on 08-14-2021 aPTT Coag (PPP) [Time] 28.2 s 25.1-36.5 [facility] Bacterial blood cultureOrder ed By: Bong Bansal on 08-14-2021 Bacteria identified Cx Nom (Bld) NO GROWTH 5 DAYS [facility] Creatinine [Mass/volume] in UrineOrdered By: Alaina Arce on 08-14-2021 Creatinine (U) [Mass/Vol] 74.6 mg/dL [facility] Comment on above: No reference range e stablished Glucose Glucometer (BldC) [M ass/Vol]Ordered By: Alaina Arce on 08-14-2021 Glucose [Mass/Vol] 102 mg/dL [facility] Comment on above: Random Glucose Refer ence Range is dependent on time and content of last meal. Glucose of more than 200 mg/dL in a nonstressed, ambulatory subject supports the diagnosis of Diabetes Mellitus. Glucose mean value [Mass/vol ume] in Blood Estimated from glycated hemoglobinOrdered By: Janet Hamm on 08-14-2021 Average glucose Estimated from glycated hemoglobin (Bld) [Mass/Vol] 126 mg/dL [facility] Hemoglobin A1c percentageOrd ered By: Janet Hamm on 08-14-2021 HbA1c (Bld) [Mass fraction] 6.0 % 4.3-5.6 [facility] Comment on above: Increased risk for d iabetes: 5.7 - 6.4 diabetes: >6.4 glycemic control for adults with diabetes: <7.0 Laboratory - Chemistry and C hemistry - challengeOrdered By: Alaina Arce on 08-14-2021 Magnesium [Mass/Vol] 2.3 mg/dL 1.6-2.6 [facility] Laboratory - CoagulationOrde red By: Bong Bansal on 08-14-2021 PT Coag (PPP) [Time] 11.8 s 9.0-12.9 [facility] Platelet poor plasma interna tional normalized ratio (INR) by coagulation assay (relatOrdered By: Bong Bansal on 08-14-2021 INR Coag (PPP) [Relative time] 1.1 {INR} [facility] Comment on above: INR Therapeutic Rang e [...] 08-14-2021 Protein (U) [Mass/Vol] 100 mg/dL 0-9 [facility] Renin activityOrdered By: Emma Arce on 08-14-2021 Renin (P) [Catalytic activity/Vol] 27.141 ng/mL/hr 0.167-5.38 0 [facility] Comment on above: This test was develo ped and its performance characteristics determined by [employer]. It has not been cleared or approved by the Food and Drug Administration. Performed at: [facility] [id number] Press Supervisor: Veronica Ring MD, Phone: [phone] Serum or plasma aldosterone measurement (mass/volume)Ordered By: Alaina Arce on 08-14-2021 Aldosterone [Mass/Vol] 7.8 ng/dL 0.0-30.0 [facility] Comment on above: This test was develo ped and its performance characteristics determined by [employer]. It has not been cleared or approved by the Food and Drug Administration. Performed at: [facility] [address] [id number] Press Supervisor: Veronica Ring MD, Phone: [phone] Urine protein/creatinine rat ioOrdered By: Alaina Arce on 08-14-2021 Protein/Creatinine (U) [Ratio] 1340 mg/g{Cre} 0-200 [facility] Urine sodium measurement (mo les/volume)Ordered By: Alaina Arce on 08-14-2021 Sodium (U) [Moles/Vol] 54.0 mmol/L [facility] Comment on above: No reference range e stablished AMYLASEon 08-13-2021 Amylase [Catalytic activity/Vol] 80 U/L Normal 25-115 [facility] Comment on above: Performed By: #### A MY, CMP, LIPA #### [facility] [address] [place] [address] Dr. Moreno Amato Automated erythrocytes count in urine sediment (number/area)Ordered By: Alaina Arce on 08-13-2021 RBC Auto (Urine sed) [#/Area] 5-9 [HPF] 0-4 [facility] Automated leukocytes count i n urine sediment (number/area)Ordered By: Alaina Arce on 08-13-2021 WBC Auto (Urine sed) [#/Area] 20-49 [HPF] 0-4 [facility] Bilirubin Test strip Ql (U)O rdered By: Alaina Arce on 08-13-2021 Bilirubin Ql (U) Negative Negative [facility] CBC AUTO DIFFon 08-13-2021 BASO # 0.1 103/ul Normal 0.0-0.1 [facility] Comment on above: Performed By: #### C BC #### [facility] [address] [place] [address] Dr. Moreno Amato Basophils/100 WBC (Bld) 0.6 % Normal 0.2-2.0 [facility] Comment on above: Performed By: #### C BC #### [facility] [address] [place] [address] Dr. Moreno Amato EO # 0.1 103/ul Normal 0.0-0.7 [facility] Comment on above: Performed By: #### C BC #### [facility] [address] [place] [address] Dr. Moreno Amato Eosinophils/100 WBC (Bld) 0.6 % Critically low 0.9-7.0 [facility] Comment on above: Performed By: #### C BC #### [facility] [address] [place] [address] Dr. Moreno Amato Erythrocyte distribution width (RBC) [Ratio] 11.9 % Normal 11.0-15.0 [facility] Comment on above: Performed By: #### C BC #### [facility] [address] [place] [address] Dr. Moreno Amato Hematocrit (Bld) [Volume fraction] 51.0 % Critically high 36.0-48.0 [facility] Comment on above: Performed By: #### C BC #### [facility] [address] [place] [address] Dr. Moreno Amato Hemoglobin (Bld) [Mass/Vol] 18.2 g/dL Critically high 12.0-16.0 [facility] Comment on above: Performed By: #### C BC #### [facility] [address] [place] [address] Dr. Moreno Amato IG # 0.04 10e3/ul Critically high 0.00-0.03 [facility] Comment on above: Performed By: #### C BC #### [facility] [address] [place] [address] Dr. Moreno Amato IG % 0.3 % Normal 0.0-0.5 [facility] Comment on above: Performed By: #### C BC #### [facility] [address] [place] [address] Dr. Moreno Amato LYMPH # 2.2 103/ul Normal 1.2-3.8 [facility] Comment on above: Performed By: #### C BC #### [facility] [address] [place] [address] Dr. Moreno Amato Lymphocytes/100 WBC (Bld) 17.1 % Critically low 20.5-60.0 [facility] Comment on above: Performed By: #### C BC #### [facility] [address] [place] [address] Dr. Moreno Amato MANUAL DIFF REQ NO Normal [facility] Comment on above: Performed By: #### C BC #### [facility] [address] [place] [address] Dr. Moreno Amato MCH (RBC) [Entitic mass] 30.4 pg Normal 26.7-34.0 [facility] Comment on above: Performed By: #### C BC #### [facility] [address] [id number] [address] Moreno Amato MCHC (RBC) [Mass/Vol] 35.7 g/dL Critically high 29.9-35.2 [facility] Comment on above: Performed By: #### C BC #### [facility] [address] [address] [address] Moreno Amato MCV (RBC) [Entitic vol] 85.1 fL Normal 81.0-99.0 [facility] Comment on above: Performed By: #### C BC #### [facility] [address] [address] [address] Moreno Amato MONO # 1.3 103/ul Critically high 0.3-0.8 [facility] Comment on above: Performed By: #### C BC #### [facility] [address] [place] [address] Dr. Moreno Amato Monocytes/100 WBC (Bld) 10.0 % Normal 1.7-12.0 [facility] Comment on above: Performed By: #### C BC #### [facility] [address] [address] [address] Moreno Amato NEUT # 9.3 103/ul Critically high 1.4-6.5 [facility] Comment on above: Performed By: #### C BC #### [facility] [address] [place] [address] Dr. Moreno Amato Neutrophils/100 WBC (Bld) 71.4 % Normal 43.0-75.0 [facility] Comment on above: Performed By: #### C BC #### [facility] [address] [address] [address] Moreno Amato Platelet mean volume (Bld) [Entitic vol] 9.8 fL Normal 9.5-13.5 [facility] Comment on above: Performed By: #### C BC #### [facility] [address] [address] [address] Moreno Amato PLT 242 103/ul Normal 150-450 [facility] Comment on above: Performed By: #### C BC #### [facility] [address] [place], [place] [address] Dr. Moreno Amato RBC 5.99 106/ul Critically high 4.20-5.[address] [facility] Comment on above: Performed By: #### C BC #### [facility] [address] [place], [place] [address] Dr. Moreno Amato WBC 13.0 103/ul Critically high 4.0-11.[address] [facility] Comment on above: Performed By: #### C BC #### [facility] [address] [place], [place] [address] ABD/PELVIS WO CONon [...] Vinay MANN Date: 2021-08-13 03:36 Normal [facility] CT STROKE HEAD WOon 08-14-19 CT [...] MAVIS ROSSI Date: 2021-08-13 07:39 Normal [facility] CULTURE URINEon 08-13-2021 CULTURE URINE Culture Observations : LIGHT GROWTH OF MIXED GENITAL ZOE. NO POTENTIAL PATHOGENS SEEN. Normal [facility] Comment on above: Performed By: #### A MY, CMP, LIPA #### [facility] [address] [address] [address] Moreno Amato Color Auto (U)Ordered By: Emma Arce on 08-13-2021 Color (U) Yellow [facility] Covid-19 PCR (CVDTBH)on 07-20 SARS-CoV-2 (COVID-19) RNA ELISA+probe Ql (Unsp spec) Not detected Normal NOT DETECTED [facility] Comment on above: Result Comment: When [...] for this test is supported by the Hospital Recruiter of Health and Human Service's declaration that [...] used). Performed By: #### C VDTB #### [facility] [address] [place] [address] Dr. Moreno Amato ER URINE PROFILEon 2 Bilirubin Ql (U) Negative Normal NEGATIVE [facility] Comment on above: Performed By: #### E RUR, UMICRO #### [facility] [address] [place] [address] Dr. Moreno Amato Clarity (U) CLEAR Normal CLEAR [facility] Comment on above: Performed By: #### E ANNR, UMICRO #### [facility] [address] [place] [address] Dr. Moreno Amato Color (U) LT. YELLOW Normal YELLOW [facility] Comment on above: Performed By: #### E RUR, UMICRO #### [facility] [address] [place] [address] Dr. Moreno SANCHEZ A micrscopic examina tion will be performed if indicated. Normal [facility] Comment on above: Performed By: #### Rupal JUAREZR, UMICRO #### [facility] [address] [place] [address] Dr. Moreno Amato Glucose Ql (U) Negative Normal NEGATIVE [facility] Comment on above: Performed By: #### E RUR, UMICRO #### [facility] [address] [place] [address] Dr. Moreno Amato Hemoglobin Ql (U) MODERATE Abnormal NEGATIVE [facility] Comment on above: Performed By: #### E RUR, UMICRO #### [facility] [address] [place] [address] Dr. Moreno Amato Ketones Ql (U) Negative Normal NEGATIVE [facility] Comment on above: Performed By: #### E RUR, UMICRO #### [facility] [address] [place] [address] Dr. Moreno Amato LEUKOCYTES SMALL Abnormal NEGATIVE [facility] Comment on above: Performed By: #### NAOMI FRANCISCO #### [facility] [address] [place] [address] Dr. Moreno Amato Nitrite Ql (U) Positive Abnormal NEGATIVE [facility] Comment on above: Performed By: #### NAOMI FRANCISCO #### [facility] [address] [place] [address] Dr. Moreno Amato pH (U) 6.0 [pH] Normal 5-9 [facility] Comment on above: Performed By: #### NAOMI FRANCISCO #### [facility] [address] [place] [address] Dr. Moreno Amato SPEC GRAVITY 1.020 Normal 1.005-<=1. 025 [facility] Comment on above: Performed By: #### NAOMI FRANCISCO #### [facility] [address] [place] [address] Dr. Moreno Amato UA PROTEIN >300 Abnormal NEGATIVE/ TRACE [facility] Comment on above: Performed By: #### NAOMI FRANCISCO #### [facility] [address] [place] [address] Dr. Moreno Amato UR MICRO IND INDICATED Normal [facility] Comment on above: Performed By: #### NAOMI FRANCISCO #### [facility] [address] [place] [address] Dr. Moreno Amato Urobilinogen Qn (U) 0.2 {[place]'U}/dL Normal 0.2 - 1. 0 [facility] Comment on above: Performed By: #### ANOMI FRANCISCO #### [facility] [address] [place] [address] Dr. Moreno Amato Ketones Auto test strip (U) [Mass/Vol]Ordered By: Alaina Arce on 08-13-2021 Ketones (U) [Mass/Vol] Negative Negative [facility] LACTATE/LACTIC ACIDon 2021 Lactate [Moles/Vol] 1.1 mmol/L Normal 0.4-1.9 [facility] Comment on above: Performed By: #### A MY, CMP, LIPA #### [facility] [address] [address] [address] Moreno Amato LIPASEon 08-13-2021 Lipase [Catalytic activity/Vol] 524.0 U/L Critically high 73.0-393.0 [facility] Comment on above: Performed By: #### A MY, CMP, LIPA #### [facility] [address] [address] [address] Moreno Amato Laboratory - Chemistry and C hemistry - challengeOrdered By: Alaina Arce on 08-13-2021 Lactate [Moles/Vol] 1.6 mmol/L 0.5-2.2 [facility] - UrinalysisOrder ed By: Alaina Arce on 08-13-2021 Hyaline casts LM Ql (Urine sed) 9-19 [LPF] 0-8 [facility] Nitrite Test strip Ql (U)Ord ered By: Alaina Arce on 08-13-2021 Nitrite Ql (U) Positive Negative [facility] POINT OF CARE GLUCOSEon 07-20 Glucose [Mass/Vol] 129 mg/dL Critically high 74-106 [facility] Comment on above: Performed By: #### A MY, CMP, LIPA #### [facility] [address] [address] [address] Moreno Amato PROF 14(COMP METB)on 022 Albumin [Mass/Vol] 3.4 g/dL Normal 3.4-5.0 [facility] Comment on above: Performed By: #### A MY CMP, LIPA #### [facility] [address] [address] [address] Moreno Amato Albumin/Globulin [Mass ratio] 0.8 {ratio} Normal [facility] Comment on above: Performed By: #### A MY, CMP, LIPA #### [facility] [address] [address] [address] Moreno Amato ALP [Catalytic activity/Vol] 105 U/L Normal 46-116 [facility] Comment on above: Performed By: #### A MY, CMP, LIPA #### [facility] [address] [address] [address] Moreno Amato ALT [Catalytic activity/Vol] 22 U/L Normal 14-59 [facility] Comment on above: Performed By: #### A MY, CMP, LIPA #### [facility] [address] [address] [address] Moreno Amato Anion gap [Moles/Vol] 11.6 mmol/L Normal [facility] Comment on above: Performed By: #### A MY, CMP, LIPA #### [facility] [address] [place] [address] Dr. Moreno Amato AST [Catalytic activity/Vol] 22 U/L Normal 15-37 [facility] Comment on above: Performed By: #### A MY, CMP, LIPA #### [facility] [address] [place] [address] Dr. Moreno Amato Bilirubin [Mass/Vol] 0.7 mg/dL Normal 0.2-1.0 [facility] Comment on above: Performed By: #### A MY, CMP, LIPA #### [facility] [address] [place] [address] Dr. Moreno Amato Calcium [Mass/Vol] 9.6 mg/dL Normal 8.5-10.1 [facility] Comment on above: Performed By: #### A MY, CMP, LIPA #### [facility] [address] [address] [address] Moreno Amato Chloride [Moles/Vol] 97 mmol/L Critically low 98-107 [facility] Comment on above: Performed By: #### A MY, CMP, LIPA #### [facility] [address] [place] [address] Dr. Moreno Amato CO2 [Moles/Vol] 31.2 mmol/L Normal 21.0-32.0 [facility] Comment on above: Performed By: #### A MY, CMP, LIPA #### [facility] [address] [address] [address] Moreno Amato Creatinine [Mass/Vol] 1.64 mg/dL Critically high 0.55-1.02 [facility] Comment on above: Performed By: #### A MY, CMP, LIPA #### [facility] [address] [place] [address] Dr. Moreno Amato EGFR-AF CENTRAL AFRICAN 39 mL/min/1.73m2 Critically low >=60 [facility] Comment on above: Performed By: #### A MY, CMP, LIPA #### [facility] [address] [place] [address] Dr. Moreno Amato EGFR-NON AF CENTRAL AFRICAN 32 mL/min/1.73m2 Critically low >=60 [facility] Comment on above: Performed By: #### A MY, CMP, LIPA #### [facility] [address] [place] [address] Dr. Moreno Amato Globulin (S) [Mass/Vol] 4.1 g/dL Normal [facility] Comment on above: Performed By: #### A MY, CMP, LIPA #### [facility] [address] [place] [address] Dr. Moreno Amato Glucose [Mass/Vol] 110 mg/dL Critically high 74-106 [facility] Comment on above: Performed By: #### A MY, CMP, LIPA #### [facility] [address] [place] [address] Dr. Moreno Amato Potassium [Moles/Vol] 2.8 mmol/L Critically low 3.5-5.1 [facility] Comment on above: Performed By: #### A MY, CMP, LIPA #### [facility] [address] [place] [address] Dr. Moreno Amato Protein [Mass/Vol] 7.5 g/dL Normal 6.4-8.2 [facility] Comment on above: Performed By: #### A MY, CMP, LIPA #### [facility] [address] [place] [address] Dr. Moreno Amato Sodium [Moles/Vol] 137 mmol/L Normal 136-145 [facility] Comment on above: Performed By: #### A TOMMY CMP, LIPA #### [facility] [address] [address] [address] Moreno Amato Urea nitrogen [Mass/Vol] 26.0 mg/dL Critically high 7.0-18.0 [facility] Comment on above: Performed By: #### A TOMMY CMP, LIPA #### [facility] [address] [address] [address] Moreno Amato Urea nitrogen/Creatinine [Mass ratio] 15.9 mg/mg Normal [facility] Comment on above: Performed By: #### A ERIKA SANDERS, LIPA #### [facility] [address] [address] [address] Moreno Amato Protein Auto test strip (U) [Mass/Vol]Ordered By: Alaina Arce on 08-13-2021 Protein (U) [Mass/Vol] mg/dL Negative [facility] Specific gravity Auto test s trip (U) [Rel density]Ordered By: Alaina Arce on 08-13-2021 Specific gravity (U) [Rel density] 1.017 1.001-1.03 0 [facility] Squamous epithelial cells de tection in urine sediment by light microscopyOrdered By: Alaina Arce on 08-13-2021 Epithelial cells.squamous LM Ql (Urine sed) 3-4 [HPF] 0-2 [facility] TROPONIN, HIGH SENSITIVITYon 08-13-2021 HSTROP 91.0 pg/mL Critically high 4.0-51.3 [facility] Comment on above: Result Comment: CUT- OFF POINTS HAVE BEEN ESTABLISHED BASED ON THE FOURTH UNIVERSAL DEFINITIONS OF MYOCARDIAL INFARCTION. THE UPPER REFERENCE LIMIT (URL) OF TROPONIN, DEFINED THE 99TH PERCENTILE OF cTnI DISTRIBUTION IN A REFERENCE POPULATION, HAS BEEN CONFIRMED THE DECISION THRESHOLD FOR LA DIAGNOSIS. Performed By: #### A TOMMY CMP, LIPA #### [facility] [address] [address] [address] Moreno Amato HSTROP 109.0 pg/mL Critically high 4.0-51.3 [facility] Comment on above: Result Comment: CUT- OFF POINTS HAVE BEEN ESTABLISHED BASED ON THE FOURTH UNIVERSAL DEFINITIONS OF MYOCARDIAL INFARCTION. THE UPPER REFERENCE LIMIT (URL) OF TROPONIN, DEFINED THE 99TH PERCENTILE OF cTnI DISTRIBUTION IN A REFERENCE POPULATION, HAS BEEN CONFIRMED THE DECISION THRESHOLD FOR LA DIAGNOSIS. Performed By: #### H STROPN #### [facility] [address] [place] [address] Dr. Moreno Amato Troponin I.cardiac [Mass/vol ume] in Serum or Plasma by High sensitivity methodOrdered By: Alaina Arce on 08-13-2021 Troponin I.cardiac High sensitivity method [Mass/Vol] 50 pg/mL 0-15 [facility] Comment on above: Critical value result called at 1736 on 08/13/21 URINE MICROSCOPIC ONLYon BACTERIA SMALL Abnormal NONE SEEN [facility] Comment on above: Performed By: #### E RUR, UMICRO #### [facility] [address] [place] [address] Dr. Moreno Amato Bacteria identified Cx Nom (U) INDICATED Normal [facility] Comment on above: Performed By: #### E RUR, UMICRO #### [facility] [address] [place] [address] Dr. Moreno Amato CAST SEEN Abnormal NONE SEEN [facility] Comment on above: Performed By: #### E RUR, UMICRO #### [facility] [address] [place] [address] Dr. Moreno Amato Crystals LM Nom (Urine sed) NONE SEEN Normal NONE SEEN [facility] Comment on above: Performed By: #### E RUR, UMICRO #### [facility] [address] [place] [address] Dr. Moreno Amato Epithelial cells LM Ql (Urine sed) FEW Abnormal NONE SEEN /RARE [facility] Comment on above: Performed By: #### E RUR, UMICRO #### [facility] [address] [place] [address] Dr. Moreno VASQUES CAST FEW Normal [facility] Comment on above: Performed By: #### E RUR, UMICRO #### [facility] [address] [address] [address] Moreno Amato MUCOUS NONE SEEN Normal NONE SEEN [facility] Comment on above: Performed By: #### NAOMI FRANCISCO #### [facility] [address] [address] [address] Moreno Amato RBC 2-5 Abnormal 0-2 [facility] Comment on above: Performed By: #### NAOMI FRANCISCO #### [facility] [address] [address] [address] Moreno Amato WBC 20-50 Abnormal NONE SEEN [facility] Comment on above: Performed By: #### NAOMI FRANCISCO #### [facility] [address] [address] [address] Moreno Amato Urine bacteria detection by automated methodOrdered By: Alaina Arce on 08-13-2021 Bacteria Auto Ql (U) None seen None Seen [facility] Urine clarity by refractomet ry automatedOrdered By: Alaina Arce on 08-13-2021 Clarity Refractometry automated (U) Cloudy Clear [facility] Urine culture routineOrdered By: Alaina Arce on 08-13-2021 Bacteria identified Cx Nom (U) 2 Days [facility] Urine glucose measurement by automated test strip (mass/volume)Ordered By: Alaina Arce on 08-13-2021 Glucose Auto test strip (U) [Mass/Vol] Normal mg/dL Normal [facility] Urine hemoglobin detection b y automated test stripOrdered By: Alaina Arce on 08-13-2021 Hemoglobin Auto test strip Ql (U) 1+ Negative [facility] Urine leukocyte esterase det ection by automated test stripOrdered By: Alaina Arce on 08-13-2021 Leukocyte esterase Auto test strip Ql (U) 1+ Negative [facility] Urobilinogen Auto test strip (U) [Mass/Vol]Ordered By: Alaina Arce on 08-13-2021 Urobilinogen (U) [Mass/Vol] Normal mg/dL Normal [facility] XR CHEST 1 Von 08-13-2021 XR CHEST [...] Vinay MANN Date: 2021-08-13 06:28 Normal [facility] pH Auto test strip (U)Ordere d By: Alaina Arce on 08-13-2021 pH (U) 5.5 [pH] 5.0-9.0 [facility] [place] DIGITAL SCREEN SELF REFERRAL W OR WO CAD BILATERALon 12-16-2020 [facility] KY[place] DIGITAL SCREEN SELF REFERRAL [...] to the patient regarding the results. The [employer] recommends annual mammograms for women 40 years and older. Interpreted by: Uvaldo Read Signed by: Uvaldo Read 12/16/20 Final result Normal [facility] Vital Signs Date Time Vital Sign Value Performing Clinician Facility 02-14-2023 09:56-0500 Inhaled oxygen flow rate 1 L/min MD Shaikh Thompson Work Phone: [facility] 02-14-2023 08:00-0500 Body temperature 97.7 [degF] MD Shaikh Thompson Work Phone: [facility] 02-14-2023 08:00-0500 Diastolic blood pressure 69 mm[Hg] MD Shaikh Thompson Work Phone: [facility] 02-14-2023 08:00-0500 Heart rate 78 /min MD Shaikh Thompson Work Phone: [facility] 02-14-2023 08:00-0500 Respiratory rate 20 /min MD Shaikh Thompson Work Phone: [facility] 02-14-2023 08:00-0500 SaO2% (BldA) [Mass fraction] 95 % MD Shaikh Thompson Work Phone: [facility] 02-14-2023 08:00-0500 Systolic blood pressure 118 mm[Hg] MD Shaikh Thompson Work Phone: [facility] 02-14-2023 05:51-0500 Body weight 69.9 kg MD Shaikh Thompson Work Phone: [facility] 02-13-2023 12:53-0500 Body height 157.48 cm MD Shaikh Thompson Work Phone: [facility] 02-10-2023 17:00-0500 Heart rate 85 /min [facility] 02-10-2023 16:38-0500 Diastolic blood pressure 80 mm[Hg] [facility] 02-10-2023 16:38-0500 Heart rate 80 /min [facility] 02-10-2023 16:38-0500 Mean blood pressure 99 mm[Hg] [facility] 02-10-2023 16:38-0500 Respiratory rate 18 /min [facility] 02-10-2023 16:38-0500 SaO2% (BldA) [Mass fraction] 95 % [facility] 02-10-2023 16:38-0500 Systolic blood pressure 138 mm[Hg] [facility] 02-10-2023 15:40-0500 Diastolic blood pressure 92 mm[Hg] [facility] 02-10-2023 15:40-0500 Heart rate 90 /min [facility] 02-10-2023 15:40-0500 Mean blood pressure 105 mm[Hg] [facility] 02-10-2023 15:40-0500 Respiratory rate 20 /min [facility] 02-10-2023 15:40-0500 SaO2% (BldA) [Mass fraction] 94 % [facility] 02-10-2023 15:40-0500 Systolic blood pressure 132 mm[Hg] [facility] 02-10-2023 14:42-0500 Body temperature 98.24 [degF] [facility] 02-10-2023 14:42-0500 Heart rate 93 /min [facility] 02-10-2023 14:42-0500 Respiratory rate 24 /min [facility] 02-10-2023 14:00-0500 Blood Pressure Location Jaxson Johnson [facility] 02-10-2023 14:00-0500 Body temperature 96.8 [degF] Jaxson Johnson [facility] 02-10-2023 14:00-0500 Diastolic blood pressure 90 mm[Hg] Jaxson Johnson [facility] 02-10-2023 14:00-0500 Heart rate 88 /min Jaxson Zunigaons [facility] 02-10-2023 14:00-0500 SaO2% (BldA) [Mass fraction] 92 % Jaxson Zunigaons [facility] 02-10-2023 14:00-0500 Systolic blood pressure 140 mm[Hg] Jaxson Johnson [facility] 10-15-2022 17:36-0400 Blood Pressure Location Damion Cheek [facility] 10-15-2022 17:36-0400 Body temperature 97.34 [degF] Damion Robledopsey [facility] 10-15-2022 17:36-0400 Diastolic blood pressure 76 mm[Hg] Damion Ham [facility] 10-15-2022 17:36-0400 Heart rate 60 /min Damion Ham [facility] 10-15-2022 17:36-0400 SaO2% (BldA) [Mass fraction] 96 % Damion Cheek [facility] 10-15-2022 17:36-0400 Systolic blood pressure 122 mm[Hg] Damion Ham [facility] 10-09-2022 14:24-0400 Body height 157.5 cm Gurmeet Ojeda MD Work Phone: [facility] 10-09-2022 14:24-0400 Body temperature 97.5 [degF] Gurmeet Ojeda MD Work Phone: [facility] 10-09-2022 14:24-0400 Body weight 71.26 kg Gurmeet Ojeda MD Work Phone: [facility] 10-09-2022 14:24-0400 Diastolic blood pressure 60 mm[Hg] Gurmeet Ojeda MD Work Phone: [facility] 10-09-2022 14:24-0400 Heart rate 60 /min Gurmeet Ojeda MD Work Phone: [facility] 10-09-2022 14:24-0400 Systolic blood pressure 91 mm[Hg] Gurmeet Ojeda MD Work Phone: [facility] 08-09-2022 14:56-0400 Body height 157.5 cm Gurmeet Ojeda MD Work Phone: [facility] 08-09-2022 14:56-0400 Body temperature 97.7 [degF] Gurmeet Ojeda MD Work Phone: [facility] 08-09-2022 14:56-0400 Body weight 72.53 kg Gurmeet Ojeda MD Work Phone: [facility] 08-09-2022 14:56-0400 Diastolic blood pressure 64 mm[Hg] Gurmeet Ojeda MD Work Phone: [facility] 08-09-2022 14:56-0400 Heart rate 65 /min Gurmeet Ojeda MD Work Phone: [facility] 08-09-2022 14:56-0400 Systolic blood pressure 98 mm[Hg] Gurmeet Ojeda MD Work Phone: [facility] 06-14-2022 12:57-0400 Blood Pressure Location Ayala SALAM [facility] 06-14-2022 12:57-0400 Diastolic blood pressure 74 mm[Hg] Ayala SALAM [facility] 06-14-2022 12:57-0400 Heart rate 80 /min Ayala SALAM [facility] 06-14-2022 12:57-0400 Respiratory rate 16 /min Ayala SALAM [facility] 06-14-2022 12:57-0400 Systolic blood pressure 118 mm[Hg] Ayala SALAM [facility] 06-06-2022 10:13-0400 Blood Pressure Location TRUDY NGUYỄN [facility] 06-06-2022 10:13-0400 Diastolic blood pressure 88 mm[Hg] TRUDY NGUYỄN [facility] 06-06-2022 10:13-0400 Heart rate 74 /min TRUDY NGUYỄN [facility] 06-06-2022 10:13-0400 Systolic blood pressure 144 mm[Hg] TRUDY NGUYỄN [facility] 05-23-2022 10:41-0400 Blood Pressure Location TRUDY NGUYỄN [facility] 05-23-2022 10:41-0400 Diastolic blood pressure 85 mm[Hg] TRUDY NGUYỄN [facility] 05-23-2022 10:41-0400 Heart rate 72 /min TRUDY NGUYỄN [facility] 05-23-2022 10:41-0400 Systolic blood pressure 127 mm[Hg] TRUDY NGUYỄN [facility] 04-11-2022 11:01-0500 Blood Pressure Location TRUDY NGUYỄN [facility] 04-11-2022 11:01-0500 Diastolic blood pressure 88 mm[Hg] TRUDY NGUYỄN [facility] 04-11-2022 11:01-0500 Heart rate 71 /min TRUDY ADRIAN [facility] 04-11-2022 11:01-0500 Systolic blood pressure 146 mm[Hg] TRUDY ADRIAN [facility] 03-19-2022 16:35-0500 Body height 163.83 cm Padmini Waynemond Other [facility] [employer] Other 03-19-2022 16:35-0500 Body mass index (BMI) [Ratio] 27.37 kg/m2 Padmini Waynemond Other [employer] Other 03-19-2022 16:35-0500 Body temperature 98.9 [degF] Padmini Waynemond Other [employer] Other 03-19-2022 16:35-0500 Body weight 73.48 kg Padmini Waynemond Other [employer] Other 03-19-2022 16:35-0500 Respiratory rate 18 /min Padmini Waynemond Other [employer] Other 03-19-2022 16:35-0500 SaO2% (BldA) [Mass fraction] 96 % Padmini Waynemond Other [employer] Other 03-13-2022 10:12-0500 Diastolic blood pressure 59 mm[Hg] MD Shaikh Thompson Work Phone: [facility] 03-13-2022 10:12-0500 Heart rate 77 /min MD Shaikh Thompson Work Phone: [facility] 03-13-2022 10:12-0500 Respiratory rate 18 /min MD Shaikh Thompson Work Phone: [facility] 03-13-2022 10:12-0500 SaO2% (BldA) [Mass fraction] 98 % MD Shaikh Thompson Work Phone: [facility] 03-13-2022 10:12-0500 Systolic blood pressure 93 mm[Hg] MD Shaikh Thompson Work Phone: [facility] 03-13-2022 07:54-0500 Body height 162.56 cm MD Shaikh Thompson Work Phone: [facility] 03-13-2022 07:54-0500 Body temperature 98 [degF] MD Shaikh Thompson Work Phone: [facility] 03-13-2022 07:54-0500 Body weight 73.48 kg MD Shaikh Thompson Work Phone: [facility] 03-12-2022 08:58-0500 Body height 160.02 cm Shaikh Donna Work Phone: [facility] 250 DO Work Phone: 03-12-2022 08:58-0500 Body mass index (BMI) [Ratio] 28.7 kg/m2 Shaikh Donna Work Phone: [facility] 250 DO Work Phone: 03-12-2022 08:58-0500 Body surface area Derived from formula 1.77 m2 Shaikh Donna Work Phone: [facility] 250 DO Work Phone: 03-12-2022 08:58-0500 Body weight 73.48 kg Shaikh Donna Work Phone: [facility] 250 DO Work Phone: 03-12-2022 08:58-0500 Diastolic blood pressure 78 mm[Hg] Shaikh Jabierwad Work Phone: [facility] 250 DO Work Phone: 03-12-2022 08:58-0500 Heart rate 66 /min Shaikh Jabierwad Work Phone: [facility] 250 DO Work Phone: 03-12-2022 08:58-0500 Systolic blood pressure 110 mm[Hg] Shaikh Jabierwad Work Phone: [facility] 250 DO Work Phone: 01-23-2022 12:00-0500 72 1 Shaikh Jabierwad Work Phone: [facility] [address] [place] Work Phone: Comment on above: [id number] 11-09-2021 13:26-0400 Body height 160.02 cm Shaikh Jabierwad Work Phone: [facility] 600 DO Work Phone: 11-09-2021 13:26-0400 Body mass index (BMI) [Ratio] 27.83 kg/m2 Shaikh Jabierwad Work Phone: [facility] 600 DO Work Phone: 11-09-2021 13:26-0400 Body surface area Derived from formula 1.75 m2 Shaikh Jabierwad Work Phone: [facility] 600 DO Work Phone: 11-09-2021 13:26-0400 Body weight 71.27 kg Shaikh Diyawwad Work Phone: [facility] 600 DO Work Phone: 11-09-2021 13:26-0400 Diastolic blood pressure 82 mm[Hg] Shaikh Diyawwad Work Phone: [facility] 600 DO Work Phone: 11-09-2021 13:26-0400 Heart rate 64 /min Shaikh Jabierwad Work Phone: [facility] 600 DO Work Phone: 11-09-2021 13:26-0400 Systolic blood pressure 128 mm[Hg] Shaikh Jabierwad Work Phone: [facility] 600 DO Work Phone: 09-18-2021 10:26-0400 Diastolic blood pressure 80 mm[Hg] Shaikh Diyawwad Work Phone: [facility] 250 DO Work Phone: 09-18-2021 10:26-0400 Systolic blood pressure 178 mm[Hg] Shaikh Jabierwad Work Phone: [facility] 250 DO Work Phone: 09-18-2021 10:19-0400 Body height 162.56 cm Shaikh Jabierwad Work Phone: [facility] 250 DO Work Phone: 09-18-2021 10:19-0400 Body mass index (BMI) [Ratio] 26.09 kg/m2 Shaikh Jabierwad Work Phone: [facility] 250 DO Work Phone: 09-18-2021 10:19-0400 Body surface area Derived from formula 1.74 m2 Shaikh Diyawwad Work Phone: [facility] 250 DO Work Phone: 09-18-2021 10:19-0400 Body weight 68.95 kg Shaikh Leoneld Work Phone: [facility] 250 DO Work Phone: 09-18-2021 10:19-0400 Diastolic blood pressure 80 mm[Hg] Shaikh Jabierwad Work Phone: [facility] 250 DO Work Phone: 09-18-2021 10:19-0400 Heart rate 60 /min Shaikh Leoneld Work Phone: [facility] 250 DO Work Phone: 09-18-2021 10:19-0400 Systolic blood pressure 180 mm[Hg] Shaikh Leoneld Work Phone: [facility] 250 DO Work Phone: 08-23-2021 14:00-0400 Body temperature 98.9 [degF] Linn Missler Other [employer] Other 08-23-2021 14:00-0400 Body weight 66.13 kg Linn Missler Other [employer] Other 08-23-2021 14:00-0400 Diastolic blood pressure 87 mm[Hg] Linn Missler Other [employer] Other 08-23-2021 14:00-0400 Respiratory rate 18 /min Linn Missler Other [employer] Other 08-23-2021 14:00-0400 SaO2% (BldA) [Mass fraction] 96 % Linn Missler Other [employer] Other 08-23-2021 14:00-0400 Systolic blood pressure 137 mm[Hg] Linn Byrne Other [facility] [employer] Other 08-17-2021 12:00-0400 Diastolic blood pressure 94 mm[Hg] PHYSICIAN NO [facility] 08-17-2021 12:00-0400 Heart rate 78 /min PHYSICIAN NO [facility] 08-17-2021 12:00-0400 Respiratory rate 18 /min PHYSICIAN NO [facility] 08-17-2021 12:00-0400 SaO2% (BldA) [Mass fraction] 95 % PHYSICIAN NO [facility] 08-17-2021 12:00-0400 Systolic blood pressure 152 mm[Hg] PHYSICIAN NO [facility] 08-17-2021 08:00-0400 Body temperature 97.5 [degF] PHYSICIAN NO [facility] 08-17-2021 05:57-0400 Body weight 75.8 kg PHYSICIAN NO [facility] 08-17-2021 00:44-0400 Inhaled oxygen flow rate 2 L/min PHYSICIAN NO [facility] 08-16-2021 14:43-0400 Body height 162.56 cm PHYSICIAN NO [facility] 08-16-2021 14:43-0400 Body mass index (BMI) [Ratio] 25.6 kg/m2 PHYSICIAN NO [facility] Encounters Encounter Date Encounter Type Care Provider Facility Start: 07-30-2023 End: 07-30-2023 ambulatory DUNBAR FAWWAD Not Available Start: 06-17-2023 End: 06-17-2023 ambulatory DUNBAR FAWWAD Not Available Start: 06-04-2023 End: 06-04-2023 ambulatory ROSIE BLANCHARD Not Available Start: 06-03-2023 End: 06-04-2023 ambulatory TRUDY ADRIAN Facility: [facility] Start: 06-03-2023 End: 06-03-2023 Patient encounter procedure TRUDY ADRIAN [facility] Start: 05-17-2023 End: 05-17-2023 ambulatory ROSIE BLANCHARD Not Available Start: 05-13-2023 End: 05-13-2023 ambulatory SHAIKH DONNA Not Available Start: 03-12-2023 End: 03-12-2023 ambulatory Marquez Deerck Andrésrolohussein Facility:[facility] Start: 03-12-2023 End: 03-12-2023 ambulatory MD Shaikh Thompson Work Phone: [facility] Work Phone: Start: 03-12-2023 End: 03-12-2023 Patient encounter procedure MD Shaikh Thompson Work Phone: [facility] [place] Work Phone: Start: 02-19-2023 End: 02-19-2023 ambulatory SHAIKH DONNA Not Available Start: 02-12-2023 End: 02-14-2023 Evaluation and management of inpatient Jacques East Facility:[facility] Start: 02-12-2023 End: 02-14-2023 Evaluation and management of inpatient MD Shaikh Thompson Work Phone: [facility] [place] [facility] Work Phone: Start: 02-10-2023 End: 02-10-2023 Emergency department patient visit Lizethvinicio Bossjason Facility[facility] Start: 02-10-2023 End: 02-11-2023 ambulatory Jaxson Johnson Facility:[facility] Start: 02-10-2023 End: 02-10-2023 Lab Drop off Jaxson Johnson [facility] Start: 02-10-2023 End: 02-10-2023 [facility] Start: 02-10-2023 End: 02-10-2023 Patient encounter procedure Jaxson Johnson [facility] Start: 01-30-2023 End: 01-31-2023 ambulatory TRUDY ADRIAN Facility:[facility] Start: 01-30-2023 End: 01-30-2023 Patient encounter procedure TRUDY ADRIAN [facility] Start: 10-29-2022 Orders Only Debra naik MD [...] Start: 10-15-2022 End: 10-16-2022 ambulatory Damion Cheek Facility:[facility] Start: 10-15-2022 End: 10-15-2022 Lab Drop off Damion Cheek [facility] Start: 10-15-2022 End: 10-15-2022 Patient encounter procedure Damion Cheek [facility] Start: 10-15-2022 Rx Renewal Shaikh Donna Work Phone: -[facility] 600 DO Work Phone: Start: 10-09-2022 End: 10-10-2022 ambulatory Rosie Harris DO Work Phone: [facility] [place] Start: 10-09-2022 End: 10-09-2022 Patient encounter procedure Gurmeet Ojeda MD Work Phone: [facility] Comment on above: Stage 3 chronic kidn ey disease, unspecified whether stage 3a or 3b CKD (HCC) (Primary Dx); Tobacco abuse; Hypertension, renal disease; Mixed hyperlipidemia; Atrophic kidney, acquired Start: 09-03-2022 End: 09-04-2022 ambulatory DUNBAR FAWWAD Facility:[facility] Start: 08-23-2022 End: 08-24-2022 ambulatory DEBRA FISHMAN Facility:[facility] Start: 08-09-2022 End: 08-09-2022 Patient encounter procedure Gurmeet Ojeda MD Work Phone: [facility] Comment on above: Stage 3b chronic kid domingo disease (HCC) (Primary Dx); Hypertension, unspecified type; Orthostatic hypotension; Alkalosis; Hypercholesteremia Start: 08-09-2022 End: 08-10-2022 ambulatory Debra Fishman MD Work Phone: [facility] Start: 08-01-2022 ambulatory TRUDY E NGUYỄN Facili ty:[facility] [place] Start: 07-11-2022 ambulatory TRUDY E NGUYỄN Facili ty:[facility] [place] Start: 06-27-2022 ambulatory TRUDY E NGUYỄN Facili ty:[facility] [place] Start: 06-19-2022 ambulatory DUNBAR H FAIselaWAD Facilit y:[facility] Start: 06-18-2022 ambulatory DUNBAR FAWWAD Facility: [facility] Start: 06-14-2022 End: 06-15-2022 ambulatory DUNBAR FAWWAD Facility:[facility] Start: 06-14-2022 End: 06-14-2022 Patient encounter procedure Jamie BILLS [facility] Start: 06-12-2022 End: 06-13-2022 ambulatory DUNBAR H FAWWAD Facility:[facility] Start: 06-06-2022 End: 06-07-2022 ambulatory TRUDY E NGUYỄN Facility:[facility] [place] Start: 06-06-2022 End: 06-06-2022 Patient encounter procedure TRUDY ADRIAN [facility] Start: 05-23-2022 End: 05-23-2022 Patient encounter procedure TRUDY ADRIAN [facility] Start: 04-30-2022 End: 05-01-2022 ambulatory SHAIKH Enrique THOMPSON Facility:[facility] Start: 04-11-2022 End: 04-11-2022 Patient encounter procedure TRUDY ADRIAN [facility] Joe Start: 04-05-2022 End: 04-05-2022 ambulatory Kevyn Sharma Other [employer] Other Start: 04-05-2022 Telephone encounter Kevyn Carmichael ck [facility] Caregiver Start: 03-27-2022 End: 03-28-[address] MARQUEZ BEAL Facility:[facility] Start: 03-19-2022 End: 03-19-2022 ambulatory Padmini Sam Other [employer] Other Start: 03-19-2022 Office outpatient vi sit 15 minutes Padmini Sam [facility] Start: 03-13-2022 End: 03-13-2022 Admission to same day surgery center MD Shaikh Thompson Work Phone: [facility] Work Phone: Start: 03-13-2022 End: 03-13-2022 ambulatory MD Shaikh Thompson Work Phone: [facility] Work Phone: Start: 03-12-2022 Office outpatient vi sit 25 minutes Shaikh Donna Work Phone: [facility] 250 DO Work Phone: Start: 02-26-2022 End: 02-26-[address] XAVIER STAFFORD . Facility:[facility] Start: 02-19-2022 End: 02-20-2022 ambulatory SHAIKH Enrique SAUCEDOWAD Facility:[facility] Start: 01-29-2022 Chart Update Shaikh Diyawwad Work Phone: [facility] 600 DO Work Phone: Start: 01-23-[address] Marquez Beal II Facility:[id number] Start: 01-23-2022 Patient encounter procedure Shaikh Jabierwad Work Phone: [facility] 250 DO Work Phone: Start: 11-16-2021 Rx Renewal Shaikh Jabierwad Work Phone: [facility] 600 DO Work Phone: Start: 11-09-2021 ambulatory Marquez Beal II Facility: Start: 10-30-2021 End: 10-31-2021 ambulatory SHAIKH Enrique THOMPSON Facility:[facility] Start: 10-24-2021 Chart Update Shaikh Diyawwad Work Phone: [facility] 250 DO Work Phone: Start: 10-17-[address] Marquez Beal II Facility:[id number] Start: 09-18-2021 ambulatory Marquez Beal II Facility: Start: 09-18-2021 Office outpatient vi sit 25 minutes Dunbar Diyawwad Work Phone: [facility] 250 DO Work Phone: Start: 09-18-2021 End: 09-18-2021 Patient encounter procedure PHYSICIAN AXEL [facility] [place] Start: 09-18-2021 ambulatory Marquez Beal II Faci lity:[id number] Start: 08-23-2021 ([facility] CHUCK) [facility] Start: 08-23-2021 End: 08-23-2021 ambulatory Linn Byrne Other [employer] Other Start: 08-23-2021 End: 08-23-2021 Patient encounter procedure PHYSICIAN NO [facility] Start: 08-17-2021 End: 08-17-2021 Patient encounter procedure PHYSICIAN NO [facility]Electro[facility]ostics Start: 08-17-2021 ambulatory Marquez Christ vinay Hayshussein ZI Facility:[id number] Start: 08-16-[address] Jaycob joyner [facility] Facility:[id number] Start: 08-15-2021 ambulatory Marquez Hayshussein ZI Facility:[id number] Start: 08-14-2021 ambulatory Marquez Hayshussein ZI Facility:[id number] Start: 08-13-2021 End: 08-17-2021 Evaluation and management of inpatient PHYSICIAN AXEL [facility] [place] [facility] Start: 08-13-2021 End: 08-13-2021 ambulatory Marquez Beal II Facility:[id number] Start: 12-08-2020 End: 12-11-2020 ambulatory [facility] Start: 12-08-2020 End: 12-10-2020 Subsequent hospital visit by physician [facility] Mammo [facility] Mamm[facility] Comment on above: Encounter for screen [...] (qualifier value) VERONICA ADRIAN Total colonoscopy Shaikh Jabier austin Work Phone: Comment on above: 2017; Urine culture PHYSICIAN NO F AMILY Plan of Treatment Date Care Activity Detail Author Start: 10-10-2023 End: 12-10-2023 Renal function 2000 panel - Serum or Plasma RENAL FUNCTION PANEL Lab Routine Stage 3 chronic kidney disease, unspecified whether stage 3a or 3b CKD (HCC) Expected: 10/10/2023, Expires: 12/10/2023 [facility] Work Phone: Comment on above: Expected: 10/10/2023 , Expires: 12/10/2023 Start: 08-24-2023 SERUM CREATININE SERUM CREATININE [facility] Start: 03-12-2023 FUV, Provider: Marquez Beal, Status: Pen, Time: 11:00 AM FUV, Provider: Marquez Beal, Status: Pen, Time: 11:00 AM [facility] 250 DO Work Phone: Start: 02-14-2023 [facility] Start: 02-12-2023 Microbial culture of sputum [facility] Start: 02-12-2023 Aerobic microbial culture Aerobic Cu lture [facility] Start: 02-12-2023 Hospital admission [facility] Start: 02-12-2023 [facility] Start: 10-19-2022 Influenza vaccination [facility] Start: 08-09-2022 End: 10-09-2022 25-hydroxyvitamin D3 [Mass/volume] in Serum or Plasma VITAMIN D 25 HYDROXY Lab Routine Stage 3b chronic kidney disease (HCC) Expected: 08/09/2022, Expires: 10/09/2022 [facility] Work Phone: Comment on above: Expected: 08/09/2022 , Expires: 10/09/2022 Start: 08-09-2022 End: 10-09-2022 MONOCLONAL PROTEIN, SERUM (BLOOD) MONOCLONAL PROTEIN, SERUM (BLOOD) Lab Routine Stage 3b chronic kidney disease (HCC) Expected: 08/09/2022, Expires: 10/09/2022 [facility] Work Phone: Comment on above: Expected: 08/09/2022 , Expires: 10/09/2022 Start: 08-09-2022 End: 10-09-2022 Renal function 2000 panel - Serum or Plasma RENAL FUNCTION PANEL Lab Routine Stage 3b chronic kidney disease (HCC) Expected: 08/09/2022, Expires: 10/09/2022 [facility] Work Phone: Comment on above: Expected: 08/09/2022 , Expires: 10/09/2022 Start: 03-13-2022 [facility] Start: 03-12-2022 FUV, Provider: Marquez Beal, Status: Molina, Time: 8:30 AM FUV, Provider: Marquez Beal, Status: Molina, Time: 8:30 AM [facility] [facility] 250 DO Work Phone: Start: 02-18-2022 DEPRESSION ASSESSMENT DEPRESSION ASS ESSMENT [facility] Start: 12-21-2021 FUV, Provider: Marquez Beal, Status: Pen, Time: 12:50 PM FUV, Provider: Marquez Beal, Status: Pen, Time: [facility] Work Phone: Start: 12-08-2021 Mammography MAMMOGRAM [facility] Start: 11-22-2021 STRESS NUC, Provider : TRENA HHVI NUCLEAR 01,[id number], Status: Pen, Time: 12:00 PM STRESS NUC, Provider: TRENA HHVI NUCLEAR 01,[id number], Status: Pen, Time: 12:00 PM [facility] 600 DO Work Phone: Start: 11-22-2021 NURSEVST, Provider: KAYLEN ANAND PRINT DESIGNER 1,[id number], Status: Pen, Time: 10:30 AM NURSEVST, Provider: KAYLEN ANAND PRINT DESIGNER 1,[id number], Status: Pen, Time: 10:30 AM [facility] Work Phone: Start: 11-09-2021 FUV, Provider: Marquez Beal, Status: Pen, Time: 1:10 PM FUV, Provider: Marquez Beal, Status: Pen, Time: 1:10 PM [facility] Work Phone: Start: 10-17-2021 STRESS IVAN, Provider : TRENA HHVI NUCLEAR 01,[id number], Status: Pen, Time: 2:00 PM STRESS IVAN, Provider: TRENA HHVI NUCLEAR 01,[id number], Status: Pen, Time: 2:00 PM [facility] 250 DO Work Phone: Start: 08-17-2021 [facility] Work Phone: Start: 08-14-2021 Referral to neurologist [facility] Work Phone: Start: 08-14-2021 Blood culture for bacteria, including anaerobic screen Blood Culture [facility] Start: 08-14-2021 [facility] Work Phone: Start: 08-13-2021 Ultrasonography of R ight and Left Heart, Transesophageal Ultrasonography of Right and Left Heart, Transesophageal [facility] Start: 08-13-2021 Hospital admission [facility] Work Phone: Start: 08-13-2021 Referral to plant controls specialist [facility] Work Phone: Start: 03-27-2021 Colonoscopy COLONOSCOPY [facility] Start: 03-27-2021 COLORECTAL CANCER SCREENING COLORECTAL CANCER SCREENING [facility] Start: 03-11-2021 COVID-19 VACCINE (4 - Booster for Pfizer series) COVID-19 VACCINE (4 - Booster for Pfizer series) [facility] Start: 03-11-2021 COVID-19 VACCINE (4 - Pfizer series) COVID-19 VACCINE (4 - Pfizer series) [facility] Start: 02-07-2021 HPV TESTING HPV TESTING [facility] Start: 02-07-2021 PAP TESTING PAP TESTING [facility] Start: 10-19-2020 Influenza vaccination Flu vaccine (# 1) [facility] Phone: Start: 03-14-2017 HEMOGLOBIN/HEMATOCRIT HEMOGLOBIN/HEM ATOCRIT [facility] Start: 2012 Screening for malign ant neoplasm of breast Breast cancer screen [facility] Phone: Start: 2012 Shingles Vaccine (1 of 2) Herring gles Vaccine (1 of 2) [facility] Phone: Start: 2012 SHINGRIX VACCINE (1 of 2) HERRING GRIX VACCINE (1 of 2) [facility] Start: 05-12-2007 COLOGUARD (FIT-DNA) COLOGUARD (FIT-D NA) [facility] Start: 05-12-[address] COLONOGRAPHY [facility] Start: 05-12-2007 DIABETES SCREEN DIABETES SCREEN [facility] Start: 05-12-2007 FECAL OCCULT BLOOD FECAL OCCULT BLOO D [facility] Start: 05-12-2007 LIPID SCREEN LIPID SCREEN [facility] Start: 05-12-2007 Screening for malign ant neoplasm of colon Colon cancer screen colonoscopy [facility] Work Phone: Start: 05-12-2007 SIGMOIDOSCOPY SIGMOIDOSCOPY [facility] Start: 2002 Lipid panel Lipid screen [facility] Work Phone: Start: 1992 Screening for malign ant neoplasm of cervix [facility] Work Phone: Start: 05-12-1983 Screening for malign ant neoplasm of cervix Pap smear [facility] [employer] Phone: Start: 1981 DTaP/Tdap/Td vaccine (1 - Tdap) DTaP/Tdap/Td vaccine (1 - Tdap) [facility] [employer] Phone: Start: 1981 Urine microalbumin profile DTAP,TDAP,TD (1 - Tdap) [facility] Start: 1980 ANNUAL PCP TEAM MEDICAL RECORDS RECEPTIONIST ZEFERINO DISEASE VISIT ANNUAL PCP TEAM CHRONIC DISEASE VISIT [facility] Start: 1980 HEPATITIS C SCREENING HEPATITIS C [facility] Start: 1980 HIV SCREENING HIV SCREENING [facility] Start: 1977 HIV screening HIV screen [facility] Work Phone: Start: 1962 Hepatitis C screening Hepatitis C [facility] Work Phone: Activated protein C resistance assay [facility] Work Phone: Antithrombin [Units/volume] in Platelet poor plasma by Chromogenic method [facility] Work Phone: aPTT.lupus sensitive (LA screen) [facility] Work Phone: aPTT.lupus sensitive W excess phospholipid actual/Normal (normalized LA confirm) [facility] Work Phone: aPTT.lupus sensitive/aPTT.lupus sensitive W excess phospholipid (screen to confirm ra [facility] Work Phone: Beta 2 glycoprotein 1 IgG Ab [Units/volume] in Serum [facility] Work Phone: Beta 2 glycoprotein 1 IgM Ab [Units/volume] in Serum [facility] Work Phone: Cardiolipin IgG Ab [Units/volume] in Serum by Immunoassay [facility] Work Phone: Cardiolipin IgM Ab [Units/volume] in Serum by Immunoassay [facility] Work Phone: dRVVT (LA screen) [facility] Work Phone: F2 gene mutations fo und [Identifier] in Blood or Tissue by Molecular genetics method [employer]inal [facility] Work Phone: Homocysteine [Moles/volume] in Serum or Plasma [facility] Work Phone: Lupus anticoagulant [Interpretation] in Platelet poor plasma [facility] Work Phone: End: 12-08-2020 BERTA KYARA DIGITAL SCREEN SELF REFERRAL W OR WO CAD BILATERAL BERTA KYARA DIGITAL SCREEN SELF REFERRAL W OR WO CAD BILATERAL Imaging Routine Encounter for screening mammogram for malignant neoplasm of breast 1 Occurrences starting 12/08/2020 until 12/08/2020 [employer] Work Phone: Comment on above: 1 Occurrences starti ng 12/08/2020 until 12/08/2020 BERTA KYARA DIGITAL SCR EEN SELF REFERRAL W OR WO CAD BILATERAL BERTA KYARA DIGITAL SCREEN SELF REFERRAL W OR WO CAD BILATERAL Imaging Routine Encounter for screening mammogram for malignant neoplasm of breast 12/08/2020 1:30 PM EDT [employer] Work Phone: Patient Education [facility] Work Phone: Patient referral [facility] Work Phone: Plasminogen assay [facility] Work Phone: Protein C actual/nor mal in Platelet poor plasma by Chromogenic method [facility] Work Phone: Protein S Free Ag [Units/volume] in Platelet poor plasma by Immunoassay [facility] Work Phone: Renin [Enzymatic activity/volume] in Plasma [facility] Work Phone: End: 09-08-2023 US KIDNEY/BLADDER US KIDNEY/BLADDER Radiology Routine Stage 3b chronic kidney disease (HCC) 1 Occurrences starting 08/09/2022 until 09/08/2023 [facility] Work Phone: Comment on above: 1 Occurrences starti ng 08/09/2022 until 09/08/2023 [facility] Immunizations Immunization Date Immunization Notes Care Provider Fa cility 01-14-2021 Pfizer-BioNTech COVI D-19 Vacc 30 MCG/0.3ML Intramuscular Suspension Dunbarenrique Thompson Work Phone: [facility] Comment on above: Result Comment: 2022: [id number] 06-25-2020 Pfizer-BioNTech COVI D-19 Vacc 30 MCG/0.3ML Intramuscular Suspension Shaikh Diyasarah Work Phone: [facility] Comment on above: Reason for Medicatio n: Prophylaxis 06-04-2020 Pfizer-BioNTech COVI D-19 Vacc 30 MCG/0.3ML Intramuscular Suspension Shaikh Jabiergeovanna Work Phone: [facility] Comment on above: Reason for Medicatio n: Prophylaxis Payers Date Payer Category Payer Self-pay [id number] 2022 Medicaid [id number] 1960 Unknown [id number] 2.16.8 40.1.513188.3.579.2.1068 1962 Unknown [id number] 2.16.8 40.1.271140.3.579.2.1068 1962 Unknown [id number] 2.16. 840.1.810505.3.579.2.356 1962 Unknown [id number] 2.16. 840.1.399392.3.579.2.356 1962 Unknown [id number] 2.16. 840.1.967365.3.579.2.356 1962 Unknown [id number] 2.16. 840.1.209713.3.579.2.356 1962 Unknown [id number] 2.16. 840.1.714059.3.579.2.356 1962 Unknown [id number] 2.16. 840.1.063637.3.579.2.356 1962 Unknown [id number] 2.16. 840.1.676038.3.579.2.356 1962 Unknown [id number] 2.16. 840.1.542353.3.579.2.356 1962 Unknown [id number] 2.16. 840.1.450487.3.579.2.356 1962 Unknown [id number] 2.16. 840.1.960823.3.579.2.356 1962 Unknown [id number] 2.16. 840.1.798947.3.579.2.356 1962 Unknown [id number] 2.16.84 0.1.581504.3.579.2.593 1962 Unknown [id number] 2.16.84 0.1.117023.3.579.2.593 1962 Unknown [id number] 2.16.84 0.1.244484.3.579.2.593 1962 Unknown [id number] 2.16.84 0.1.675307.3.579.2.593 1962 Unknown [id number] 2.16.84 0.1.796565.3.579.2.593 1962 Unknown [id number] 2.16.84 0.1.606142.3.579.2.593 1962 Unknown [id number] 2.16.84 0.1.057911.3.579.2.593 1962 Unknown [id number] 2.16.84 0.1.478288.3.579.2.593 1962 Unknown [id number] 2.16.8 40.1.416479.3.579.2.1244 1962 Unknown [id number] 2.16.8 40.1.873250.3.579.2.727 1962 Unknown [id number] 2.16.8 40.1.226284.3.579.2.727 1962 Unknown [id number] 2.16.8 40.1.534889.3.579.2.727 1962 Unknown [id number] 2.16.8 40.1.799169.3.579.2.727 1962 Unknown [id number] 2.16.8 40.1.180611.3.579.2.727 1962 Unknown [id number] 2.16.8 40.1.423839.3.579.2.727 1962 Unknown [id number] 2.16.8 40.1.752474.3.579.2.727 1962 Unknown [id number] 2.16.8 40.1.938764.3.579.2.727 1962 Unknown [id number] 2.16.8 40.1.826030.3.579.2.727 1962 Unknown [id number] 2.16.8 40.1.634311.3.579.2.727 1962 Unknown [id number] 2.16.8 40.1.285647.3.579.2.727 1962 Unknown [id number] 2.16.8 40.1.792708.3.579.2.727 1962 Unknown [id number] 2.16.84 0.1.534647.3.579.2.9 1962 Unknown [id number] 2.16.84 0.1.723278.3.579.2.9 1962 Unknown [id number] 2.16.84 0.1.071899.3.579.2.9 1962 Unknown [id number] 2.16.84 0.1.953748.3.579.2.9 1962 Unknown [id number] 2.16.84 0.1.470310.3.579.2.9 1962 Unknown [id number] 2.16.840 .1.514717.3.579.2.1259 1959 Medicaid [id number] 30 [id number] Unknown [facility] [id number] Unknown Unknown [id number] 2.16.8 40.1.564328.3.579.2.531 Unknown [id number] 2.16.8 40.1.904531.3.579.2.531 Social History Date Type Detail Facility Start: 12-08-2020 Tobacco smoking stat [facility] Unknown if ever smoked [employer] Phone: Start: 1960 Sex Assigned At Not on file [facility] [employer] Work Phone: Start: 08-16-2021 End: 08-09-2022 Tobacco smoking status LAIS Ex-smoker (finding) [facility] Start: 08-09-2022 End: 10-09-2022 History of tobacco use [facility] Start: 1960 Sex Assigned At Female F [facility] Start: 08-09-2022 End: 10-09-2022 Daily caffeine consumption Daily caffeine consumption -[facility] [address] DO Work Phone: Comment on above: 1 CUP OF COFFEE; 2 CIGS DAILY; quit 2021; Start: 04-11-2022 End: 10-15-2022 Tobacco smoking status Heavy tobacco smoker (finding) [facility] Tobacco smoking status Never [facility] Start: 02-12-2023 End: 08-18-2017 History of tobacco use Current smoker [facility] End: 08-18-2017 History of tobacco use Cigarette Smoker [facility] Start: 08-09-2022 Tobacco use and exposure Smokeless tobacco non-user [facility] Start: 08-09-2022 Alcohol intake Current drinke r of alcohol (finding) [facility] Start: 10-09-2022 Alcohol intake Ex-drinker (finding) [facility] Start: 02-10-2023 Tobacco smoking status Light t obacco smoker (finding) [facility] Goals Date Patient Goal Desired Activity /State Functional Status Date Assessment Result Facility 02-14-2023 Functional status Patient at Baseline [facility] Work Phone: 02-10-2023 Functional Status N/A [facility] 10-15-2022 Functional Status N/A [facility] 06-14-2022 Functional Status N/A [facility] 06-06-2022 Functional Status N/A [facility] 05-23-2022 Functional Status N/A [facility] 04-11-2022 Functional Status N/A [facility] 08-17-2021 Functional status Patient at Baseline [facility] Work Phone: Mental Status Date Assessment Result Facility 02-14-2023 Cognitive function Cognitive Sta tus Patient at Baseline [facility] Work Phone: 08-17-2021 Cognitive function Cognitive Sta tus Patient at Baseline [facility] Work Phone: Clinical Notes 01-18-2010 to 02-14-2023 Note Date & Type Note Facility 02-14-2023 Discharge summary Note Date/Time February 14, 2023 12:53pm [facility] [address] [place] [address] Discharge Summary Signed Patient: Deysi Hernandez MR#: [id number] : 1960 Acct:[id number] Age/Sex: 62 / F Adm Date: 3 Loc: Room: [address] [place] [address]: Jacques East MD Copies to: [...] female with PMHx of CKD presented to [facility] with shortness of breath and was transferred to [facility] due to elevated troponins. Patient states she [...] % (Auto) 87.6, Lymph % (Auto) 7.6, [place] % (Auto) 4.7, Eos % (Auto) 0.0, Baso % (Auto) 0.1, Nucleat RBC Rel Count 0.0, Neut # (Auto) 11.1 H, Lymph #(Auto) 1.0, [place] # (Auto) 0.6, Eos # (Auto) 0.0, [...] <Electronically signed by Jacques East MD> 02/14/23 9202 [facility] Work Phone: 1(674) 129-626112-28-2023 Progress note Author Jacques East [facility] February 14, 2023 12:45pm Note Date/Time February 14, 2023 7:29am [facility] [address] [place] [address] Hospitalist Progress Note Signed Patient: Deysi Hernandez MR#: [id number] : 1960 Acct:[id number] Age/Sex: 62 / F Adm Date: 3 Loc: Room: [address] [place] [address] Type: ADM IN Attending Dr: Jacques East [...] creatinine clearance -Trending downward from 80s at [place] to 70s here. repeat trop 43, flat [...] <Electronically signed by Jacques East MD> 02/14/23 1249 [facility] Work Phone: 1(121) 695-975412-27-2023 Progress note Author Jacques East [facility] February 13, 2023 10:47am Note Date/Time February 13, 2023 10:40am [facility] [address] [place] [address] Hospitalist Progress Note Signed Patient: Deysi Hernandez MR#: [id number] : 1960 Acct:[id number] Age/Sex: 62 / F Adm Date: 3 Loc: Room: [address] [place] [address] Type: ADM IN Attending Dr: Jacques East [...] creatinine clearance -Trending downward from 80s at [place] to 70s here. repeat trop 43, flat [...] <Electronically signed by Jacques East MD> 02/13/23 1042 [facility] Work Phone: 1(493) 722-718112-26-2023 History and physical note Author Jacques East [facility] February 12, 2023 11:26am Note Date/Time February 12, 2023 9:53am [facility] [address] [place], [place] [id number] Hospitalist H&P Signed Patient: Deysi Hernandez MR#: [id number] : 1960 Acct:[id number] Age/Sex: 62 / F Adm Date: 3 Loc: 3T Room: [address] [place] [address] Type: ADM INOo Attending Dr: Jacques East MD Copies to: Geneva Rivas DO, RES MD Shaikh Donna Piña MD~ HPI DATE OF EXAMINATION: 02/12/23 CHIEF COMPLAINT: Shortness of breath HISTORY OF PRESENT ILLNESS: Patient is a 62 year old female with PMHx of CKD presented to [facility] with shortness of breath and was transferred to [facility] due to elevated troponins. Patient states she [...] troponin 70.6 (down from 87 yesterday at [place]). Review of Systems Review of Systems All other systems reviewed & are negative unless noted below or in HPI Review of systems: 10 systems are reviewed and are negative except as mentioned elsewhere in the documentation [facility] Medical History CKD (chronic kidney disease) stage [...] % (Auto) 4.0 % (.) 02/12/23 06:41 [place] % (Auto) 1.8 % (.) 02/12/23 06:41 Eos % (Auto) 0.0 % (.) 02/12/23 06:41 Baso % (Auto) 0.2 % (.) 02/12/23 06:41 Nucleat RBC Rel Count 0.1 /100 WBC (0-0.5) 02/12/23 06:41 Neut # (Auto) 14.1 x10E3/uL (1.8-7.7) H 02/12/23 06:41 Lymph # (Auto) 0.6 x10E3/uL (1.00-4.8) L 02/12/23 06:41 [place] # (Auto) 0.3 x10E3/uL (0.0-0.8) 02/12/23 06:41 [...] creatinine clearance -Trending downward from 80s at [place] to 70s here. Will trend it again. [...] Documented By: Geneva Rivas DO, RES 02/12/23 [id number] Signed By: <Electronically signed by DO MARIANELA Rivas> 02/12/23 1041 <Electronically signed by Jacques East MD> 02/12/23 6571 [facility] Work Phone: 1(916) 804-462912-24-2023 Hospital Discharge instructions Patient Education 02/10/2023 17:12:09 Urinary Tract Infection, Adult, Xiqr-pe-Zkge Urinary Tract Infection, Adult A urinary tract [...] Follow these instructions at home: Medicines Take ekvq-kft-ztvsmef and prescription medicines only as told by [...] provider. Document Revised: 09/16/2020 Document Reviewed: 09/16/2020 [employer] Patient Education 2022 [employer]. 02/10/2023 17:12:09 Acute Bronchitis, Adult Acute Bronchitis, [...] condition. 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 Avoid contact with people who have [...] it is easier to cough up. Take kanp-zfz-xlbsztr and prescription medicines only as told by [...] provider. Document Revised: 05/17/2022 Document Reviewed: 06/07/2021 [employer] Patient Education 2022 [employer]. Follow Up Care 02/10/2023 14:38:40 With:SHAIKH DONNA [address] [place] [address] [phone] Business (1) When:02/13/2023 16:16:37 Comments:Follow-up with your primary care provider in 3 to 5 days. If symptoms worsen, do not improve, or new symptoms arise please report back to emergency department for further evaluation. [facility]12-24-2023 Evaluation + Plan note Diagnostic Tests Pending * Urine Culture 02/10/23 [facility]12-24-2023 Evaluation + Plan noteExtracted from: Title:ED [...] day(s), # 14 cap(s), Refills(s) 0, Pharmacy: [facility]/pharmacy #[id number], 163, cm, 02/10/23 14:52:00 EST, Height/Length Dosing, 70, kg, 02/10/23 14:52:00 EST, Weight Dosing predniSONE, 60 mg = 3 tab(s), Oral, Daily, X 5 day(s), # 15 tab(s), Refills(s) 0, Pharmacy: [facility]/pharmacy #[id number], 163, cm, 02/10/23 14:52:00 EST, Height/Length [...] Ag PT & PTT Rapid COVID Antigen ([facility]) Saline Lock Insert Troponin 0 Hr. Troponin 3 Hr. XR Chest Single View [facility]09-12-2023 Evaluation note* Diagnosis Stage 3 chronic kidney disease, unspecified whether stage 3a or 3b CKD (HCC) documented in this encounter [facility]09-11-2023 NoteHNO ID: [id number] Author: Debra Fishman MD Service: ? Author Type: Physician Type: Progress Notes Filed: 10/29/2022 9:00 PM Note Text: Patient contacted me regarding high blood pressure in 150-160 mmHg at home. We agreed to increase lisinopril back to 10 mg daily, updated prescription sent to pharmacy on file. Debra Fishman MD Staff, Department of Kidney Medicine 10/29/22 9:00 [facility]09-11-2023 History of Present illness Narrative * Debra Fishman MD - 10/29/2022 8:59 PM EDT Patient contacted me regarding high blood pressure in 150-160 mmHg at home. We agreed to increase lisinopril back to 10 mg daily, updated prescription sent to pharmacy on file. Debra Fishman MD Staff, Department of Kidney Medicine 10/29/22 9:00 PM documented in [facility] Miscellaneous Notes* Telephone Encounter - Debra Fishman [...] question. I will also send her a Xiaoying message encouraging communicate via Xiaoying if needed. Debra Fishman MD Staff, Department of Kidney Medicine 10/26/22 5:49 PM documented in this encounterUniversity [facility]-2023 Miscellaneous Notes* Telephone Encounter - Linn Solis Ma - 10/25/2022 12:32 PM EDT Patient called the office very upset because today at here appointment with Kidney Medicine she wasseen by another provider and it wasn't her kidney doctor. She would like Dr. Fishman call her back at [phone] because she has lots of questions that the patient wants answers to and the patient is requesting that the provider calls her back after 5:30 pm due to the patient works that late Saturday thru Saturday documented in this encounterUniversity [facility]als [facility]08-28-2023 Hospital Discharge instructions Patient Education 10/15/2022 18:04:54 [...] Department of Health and Human Services: www.smokefree.gov [employer]: www.freedomfromsmoking.org [employer] [employer]: www.heart.org Where to find more [...] provider. Document Revised: 02/06/2022 Document Reviewed: 02/06/2022 [employer] Patient Education 2022 ScaleDB. 10/15/2022 18:04:53 Steps to Quit Smoking Steps [...] require a prescription. You can also purchase gnhj-fdv-bvwwzxm medicines. Medicines may have nicotine in them [...] and encouragement. Call telephone quitlines, such as 9-810-GTMM-NOW, reach out to support groups, or work [...] provider. Document Revised: 01/26/2022 Document Reviewed: 01/26/2022 [employer] Patient Education 2022 ScaleDB. 10/15/2022 18:04:51 BMI for Adults BMI for [...] numbers. This can be done either in [place] ([place] or metric measurements. Note that charts and online BMI calculators are available to help you find your BMI quickly and easily without having to do these calculations yourself. To calculate your BMI in [place] ([place] measurements: 1.Measure your weight in pounds [...] Centers for Disease Control and Prevention: www.cdc.gov [employer] [employer]: www.heart.org National Heart, Lung, and Blood [place]: www.nhlbi.nih.gov Summary Body mass index (BMI) is a number that is calculated from a person's weight and height. BMI may help estimate how much of a person's weight is composed of fat. BMI can help identify thosewho may be at higher risk for certain medical problems. BMI can be measured using Yemeni measurements or metric measurements. BMI charts are used to identify whether you are underweight, normal weight, overweight, or obese. This information is not intended to replace advice given to you by your health care provider. Make sure you discuss any questions you have with your health care provider. Document Revised: 10/28/2019 Document Reviewed: 09/04/2019 [employer] Patient Education 2022 ScaleDB. 10/15/2022 18:04:48 Urinary Tract Infection, Adult Urinary [...] Treatment for this condition includes: Antibiotic medicine. Lotv-blf-qfoafyf medicines to treat discomfort. Drinking enough water [...] Follow these instructions at home: Medicines Take cpfi-fes-qismnfr and prescription medicines only as told by [...] provider. Document Revised: 09/16/2020 Document Reviewed: 09/16/2020 [employer] Patient Education 2022 [employer] Follow Up Care 10/15/2022 17:17:22 With:SHAIKH THOMPSON Address:Unknown When: Unknown [facility] 08-28-2023 Evaluation + Plan note Diagnostic Tests Pending * Urine Culture 10/15/22 [facility]08-23-2023 Evaluation note* Diagnosis Stage 3 chronic kidney disease, unspecified whether stage 3a or 3b CKD (HCC)- Primary Tobacco abuse Tobacco use disorder Hypertension, renal disease Unspecified hypertensive kidney disease with chronic kidney disease stage I through stage IV, or unspecified Mixed hyperlipidemia Atrophic kidney, acquired Renal sclerosis, unspecified documented in this encounter [facility]08-22-2023 NoteHNO ID: [id number] Author: Rosie Harris, DO Service: ? Author Type: Physician Type: Progress Notes Filed: 10/09/2022 5:08 PM Note Text: [facility] NEPHROLOGY AND HYPERTENSION [facility] SERVICE [...] ESRD, hearing loss. 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 Rosie Harris DO documented in this encounterUniversity Hospitals [facility] Center08-22-2023 NotePatient Outreach (ELPIDIO) BAILEYANUJDEYSI POTTS ([id number]) 1960 F Date Time Provider Department 10/09/22 ROSIE HARRIS During your visit today, we recorded the following information about you: Allergies As of Date: 10/09/2022 Noted Allergy Reaction CODEINE 09/07/2014 7 - Swelling Date Reviewed: 10/09/2022 Reviewed by: Rosie Harris DO - Fully Assessed Visit Diagnosis:Screening for genitourinary condition [Z13.89] Order(s):URINALYSIS, REFLEX MICROSCOPIC [XIG6293] Order #: [id number]. #:[id number] Prescriptions as of 10/12/2022 - lisinopril (ZESTRIL) [...] Mixed hyperlipidemia [E78.2] 10/09/2022 Encounter Status:Closed by DIANDRA ALBERTO on 10/12/22[facility] 08-23-2022 NoteHNO ID: [id number] Author: Carine Farris RDMS Service: ? Author [...] Carine Farris RDMS August 23, 2022 2:23 [facility] NoteHNO ID: [id number] Author: Debra Fishman MD Service: ? Author Type: Physician Type: Progress Notes Filed: 08/09/2022 7:02 PM Note Text: [facility] NEPHROLOGY AND HYPERTENSION [facility] UROLOGICAL AND [facility] SERVICE [...] loss. 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 [...] Staff, Department of Kidney Medicine Pager # [phone] August 09, 2022 6:58 PM documented in this encounterUniversity [facility]06-22-2023 NotePatient Outreach (ELPIDIO) DEYSI HERNANDEZ ([id number]) 1960 F Date Time Provider Department 08/09/22 DEBRA FISHMAN During your visit today, we recorded the following information about you: Allergies As of Date: 08/09/2022 Noted Allergy Reaction CODEINE 09/07/2014 7 - Swelling Date Reviewed: 08/09/2022 Reviewed by: Paulo Holbrook MA - Fully Assessed Visit Diagnosis:Screening for genitourinary condition [Z13.89] Order(s):URINALYSIS, REFLEX MICROSCOPIC [[id number]] Order #: [id number]. #:[id number] Prescriptions as of 08/13/2022 - aspirin, enteric [...] malignant neoplasm *03/27/2016 Encounter Status:Closed by MARYLIN ALBERTOUSER on 08/13/22[facility] 06-06-2022 Hospital Discharge instructions Patient Education 06/06/2022 [...] your health care provider. General instructions Take blqz-cca-evmwxau and prescription medicines only as told by [...] provider. Document Revised: 10/24/2020 Document Reviewed: 10/24/2020 [employer] Patient Education 2022 [employer]DB. [facility] 04-05-2023 Hospital Discharge instructions Patient Education 05/23/2022 [...] 01/21/2013 Document Revised: 09/24/2018 Document Reviewed: 09/24/2018 [employer] Patient Education 2019 [employer]DB. [facility] 02-22-2023 Hospital Discharge instructions [...] 01/21/2013 Document Revised: 09/24/2018 Document Reviewed: 09/24/2018 [employer] Patient Education 2020 ScaleDB. Follow Up Care 02/28/2022 14:28:28 With:TRUDY ADRIAN PA-C, URL Address: [address] [place] [address] When: Unknown [facility] 01-30-2023 Evaluation note* Encounter Date Diagnosis Assessment [...] concerns Feb, Sore throat (ICD-10 - J02.9) [employer] [facility]* Encounter Date Diagnosis Assessment Notes [...] risk of hypotension. Patient also educated on [employer] as patient does not have prescription insurance. Advised patient on proper assessment of blood pressure at home. Time spent with patient: 10 minutes Seen by: Akil Collins, AndryD, BCACP [employer] Other 06-29-2022 Progress note Author Ricky Reynoso [facility] August 16, 2021 6:37pm Note Date/Time August 16, 2021 6:37 pm [facility] [address] [place] [address] Hospitalist Progress Note Signed Patient: Deysi Hernandez MR#: [id number] : 1960 Acct:[id number] Age/Sex: 61 / F Adm Date: 2 Loc: Room: [address] [place] [address] Type : ADM IN Attending Dr: Ricky [...] Benzocaine 1 applic 08/16/21 15:00 Benzocaine 20% [place] 57 Gm Can MUCOUS MEM ONCE PRN [...] culture have been pending, urine culture at [place] showed mixed zoe, since patient presented with [...] <Electronically signed by Ricky Reynoso DO> 08/16/211836 [facility] Work Phone: 1(588) 393-416406-29-2022 Progress note Author Rober Wyatt [facility] August 16, 2021 5:13pm Note Date/Time August 16, 2021 8:17 am [facility] [address] [place] [address] Neurology Progress Note Signed Patient: Deysi Hernandez MR#: [id number] : 1960 Acct:[id number] Age/Sex: 61 / F Adm Date: 2 Loc: Room: [address] [place] [address] Type : ADM IN Attending Dr: Ricky [...] 4 extremities and symmetric CEREBELLAR EXAM: * Xiwdhu-hd-fdrx and alternating movements are intact and normal in bilateral upper extremities * Wxdk-tb-hiec and alternating movements are intact and normal [...] Patient presented to the emergency room at [facility] with abdominal pain and was noted to have acute kidney injury and evidence of pyelonephritis and elevated troponin with EKG changes. She was transferred [facility] for further evaluation. She is on antibiotics. [...] <Electronically signed by Rober Wyatt DO> 08/16/21 8020 [facility] Work Phone: 1(448) 782-402306-29-2022 Progress note Author Marquez Beal [facility] August 16, 2021 10:47am Note Date/Time August 16, 2021 10:4 4am [facility] [address] [place] [address] Cardiology Progress Note Signed Patient: Deysi Hernandez MR#: [id number] : 1960 Acct:[id number] Age/Sex: 61 / F Adm Date: 2 Loc: Room: [address] [place] [address] Type : ADM IN Attending : Ricky Reynoso DO Copies to: ~ Date [...] % (Auto) 70.9 Lymph % (Auto) 18.6 [place] % (Auto) 9.4 Eos % (Auto) 0.4 Baso % (Auto) 0.7 Neut # (Auto) 7.7 Lymph # (Auto) 2.0 [place] # (Auto) 1.0 H Eos # (Auto) [...] signed by MD Marquez Beal> 08/16/21 1047 [facility] Work Phone: 1(469) 325-252306-28-2022 Consult note Author Rober Wyatt [facility] August 15, 2021 5:40pm Note Date/Time August 15, 2021 8:42 am [facility] [address] [place] [address] Neurology Consult Note Signed Patient: Deysi Hernandez MR#: [id number] : 1960 Acct:[id number] Age/Sex: 61 / F Adm Date: 2 Loc: Room: [address] [place] [address] Type : ADM IN Attending Dr: Alaina Arce MD Copies to: DO Janet Richter, LESLEY Arce MD NO FAMILY PHYSICIAN~ HPI Consult Date: 08/15/21 Helper Coordinator: MAURICIO Rose with Dr Wyatt Reason for consult: Stroke Consult Narrative HPI: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
--- NOTE | 2023-08-04 15:23 | XR_ITS ---
The [address] [address] Patient Name: SIXTO RICH MRN: [id number] date: 1960 Sex: F Assigned Patient Location: ER Current Patient Location: ER Accession/Order Number: [id number] Exam Date: 08/04/2023 16:05 Report Date: 08/04/2023 16:58 At the request of: JOSÉ LUIS KNOTT Procedure: XR chest 1V EXAM: XR chest 1V HISTORY: SOB COMPARISON: 04/23/2023 and earlier. TECHNIQUE: AP upright chest x-ray FINDINGS: Lung moses appear clear although lung base visualization limited by overlying soft tissues. Similar to previous, clear on prior CT. Heart size normal for technique. No pleural effusion or pneumothorax. XR/XR chest 1V IMPRESSION: Negative chest x-ray, no acute findings. Electronically authenticated by: FRANCISCO CALDERON Date: 08/04/2023 16:58
--- NOTE | 2023-08-04 15:23 | ECG_ITS ---
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
--- NOTE | 2023-08-04 15:24 | ED_ITS ---
HPI - SOB/Dyspnea General Chief Complaint: Shortness of Breath/Dyspnea Stated Complaint: SHORTNES OF BREATH Time Seen by Provider: 08/04/23 15:05 Source: patient Mode of arrival: Wheelchair History of Present Illness HPI Narrative: 63-year-old female who has COPD presents for cough and shortness of breath. She has been sick for 6 days. She finished the Zithromax course which was started 5 days ago. She has been using her nebulizer at home and it helps for just a short period of time. She gets more short of breath with exertion. She is not complaining of fever or chest pain or hemoptysis. Related Data Home Medications ?Medication ?Instructions ?Recorded ?Confirmed aspirin 81 mg chewable tablet 08/04/23 atorvastatin 40 mg tablet mg 08/04/23 lisinopril 10 mg tablet mg 08/04/23 metoprolol succinate 100 mg mg PO 08/04/23 tablet,extended release 24 hr metoprolol succinate 50 mg mg PO 08/04/23 tablet,extended release 24 hr Previous Rx's ?Medication ?Instructions ?Recorded benzonatate 100 mg capsule 100 mg PO TID PRN cough #20 caps 08/04/23 doxycycline hyclate 100 mg capsule 100 mg PO BID 10 days #20 caps 08/04/23 Allergies Allergy/AdvReac Type Severity Reaction Status Date / Time codeine Allergy Verified 08/04/23 14:55 Review of Systems ROS Narrative A ten point review of systems is negative except as noted above. PFSH PFSH Social History Smoking status: Current every day smoker Exam Narrative Exam Narrative: Nurses note and vital signs reviewed and patient is not hypoxic. General: The patient appears mildly dyspneic. Skin: Warm, dry, no pallor noted. There is no rash noted. Head: Normocephalic, atraumatic Eye: Normal conjunctiva, no drainage Ears, Nose, Mouth, and Throat: oral mucosa is moist. Nares patent. Cardiovascular: Regular Rate and Rhythm, not tachycardic Respiratory: Breath sounds are equal with some rhonchi Back: non-tender GI: Soft and nontender Musculoskeletal: The patient has no evidence of calf tenderness, no pitting edema, symmetrical pulses noted bilaterally Neurological: Awake and alert Psychiatric: Cooperative Constitutional Vital Signs, click to edit/add: Last Vital Signs Temp 97.8 F 08/04/23 14:52 Pulse 61 08/04/23 15:33 Resp 24 H 08/04/23 14:52 BP 171/103 H 08/04/23 14:52 Pulse Ox 91 L 08/04/23 15:33 O2 Del Method Room Air 08/04/23 15:33 Course Vital Signs Vital signs: Vital Signs Temperature 97.8 F 08/04/23 14:52 Pulse Rate 75 08/04/23 14:52 Respiratory Rate 24 H 08/04/23 14:52 Blood Pressure 171/103 H 08/04/23 14:52 Pulse Oximetry 92 L 08/04/23 14:52 Oxygen Delivery Method Room Air 08/04/23 14:52 Temperature 97.8 F 08/04/23 14:52 Pulse Rate 61 08/04/23 15:33 Respiratory Rate 24 H 08/04/23 14:52 Blood Pressure 171/103 H 08/04/23 14:52 Pulse Oximetry 91 L 08/04/23 15:33 Oxygen Delivery Method Room Air 08/04/23 15:33 MDM - SOB/Dyspnea MDM Narrative Medical decision making narrative: Chest x-ray shows no pneumonia. She was given IV Solu-Medrol and aerosol treatment and was offered admission. She does not feel she needs to be admitted and prefers to go home. She was advised to return if symptoms worsen. Treatment diagnosis and follow-up were discussed with the patient. Differential Diagnosis Differential diagnosis: Likely acute exacerbation of chronic obstructive airways disease, congestive heart failure and community acquired pneumonia Lab Data Attestation: I reviewed the patient's lab results. Labs: Lab Results 08/04/23 Range/Units 15:00 WBC 14.7 H (4.0-11.0) 10^3/uL RBC 5.57 H (4.20-5.40) 10^6/uL Hgb 17.0 H (12.0-16.0) g/dL Hct 51.6 H (36.0-48.0) % MCV 92.6 (81.0-99.0) fL MCH 30.5 (26.7-34.0) pg MCHC 32.9 (29.9-35.2) g/dL RDW 13.1 (11.0-15.0) % Plt Count 294 (150-450) 10^3/uL MPV 9.6 (9.5-13.5) fL Neut % (Auto) 77.2 H (43.0-75.0) % Lymph % (Auto) 12.0 L (20.5-60.0) % [place] % (Auto) 9.4 (1.7-12.0) % Eos % (Auto) 0.0 L (0.9-7.0) % Baso % (Auto) 0.2 (0.2-2.0) % Neut # (Auto) 11.4 H (1.4-6.5) 10^3/uL Lymph # (Auto) 1.8 (1.2-3.8) 10^3/uL [place] # (Auto) 1.4 H (0.3-0.8) 10^3/uL Eos # (Auto) 0.0 (0.0-0.7) 10^3/uL Baso # (Auto) 0.0 (0.0-0.1) 10^3/uL Abs Immat Gran (auto) 0.17 H (0.00-0.03) 10^3/uL Imm/Tot Granulo (auto) 1.2 H (0.0-0.5) % Sodium 141 (136-145) mmol/L Potassium 4.6 (3.5-5.1) mmol/L Chloride 104 (98-107) mmol/L Carbon Dioxide 25.3 (21.0-32.0) mmol/L Anion Gap 16.3 BUN 29.0 H (7.0-18.0) mg/dL Creatinine 1.29 H (0.55-1.02) mg/dL Est GFR ( Amer) 51 L (>=60) Est GFR (Non-Af Amer) 42 L (>=60) BUN/Creatinine Ratio 22.5 Glucose 101 (74-106) mg/dL Calcium 9.0 (8.5-10.1) mg/dL Troponin I High Sens 9.8 (4.0-51.3) pg/mL Imaging Data Chest x-ray: Radiologist's impression: ITS Impressions Chest X-Ray 08/04/23 15:23 IMPRESSION: Negative chest x-ray, no acute findings. Electronically authenticated by: FRANCISCO CALDERON Date: 08/04/2023 16:58 Critical Care Time Critical Care Time Critical Care Time: Yes Total Critical Care Time: 35 Attestation: Due to the high probability of sudden and clinically significant deterioration in the patient's condition he/she required the highest level of my preparedness to intervene urgently I provided critical care time including documentation time, medication orders and management, reevaluation, vital sign assessment, ordering and reviewing of lab tests, ordering and reviewing of x-ray studies, and admission orders. Aggregate critical care time is 35 minutes including only time during which I was engaged in work directly related to his/her care and did not include time spent treating other patients simultaneously. Discharge Plan Discharge Stand Alone Forms: Portal Instructions Chief Complaint: Shortness of Breath/Dyspnea Clinical Impression: Upper respiratory infection Patient Disposition: Home, Self-Care Time of Disposition Decision: 17:06 Condition: Good Mode of Transportation: Private Vehicle Prescriptions / Home Meds: New doxycycline hyclate 100 mg capsule 100 mg PO BID 10 Days Qty: 20 0RF benzonatate 100 mg capsule 100 mg PO TID PRN (Reason: cough) Qty: 20 0RF No Action atorvastatin 40 mg tablet metoprolol succinate 50 mg tablet extended release 24 hr PO metoprolol succinate 100 mg tablet extended release 24 hr PO lisinopril 10 mg tablet aspirin 81 mg tablet,chewable Print Language: Citizen Of [place] Instructions: Upper Respiratory Infection (ED) Referrals: Shaikh Thompson MD [Primary Care Provider] - 1 week
[2023-08-04 15:33] VITALS: PULSE 61; O2SAT 91
[2023-08-04 15:35] LABS: Basophils Percent Auto 0.2 % (0.2-2.0); Hematocrit 51.6 % (36.0-48.0); Immature Granulocytes Abs Auto 0.17 10^3/uL (0.00-0.03); Immature Granulocytes Pct Auto 1.2 % (0.0-0.5); Lymphocytes Absolute Auto 1.8 10^3/uL (1.2-3.8); Mean Corpuscular HGB Conc 32.9 g/dL (29.9-35.2); Mean Corpuscular Hemoglobin 30.5 pg (26.7-34.0); Mean Corpuscular Volume 92.6 fL (81.0-99.0); Mean Platelet Volume 9.6 fL (9.5-13.5); Monocytes Absolute Auto 1.4 10^3/uL (0.3-0.8); Monocytes Percent Auto 9.4 % (1.7-12.0); Neutrophils Absolute Auto 11.4 10^3/uL (1.4-6.5); Neutrophils Percent Auto 77.2 % (43.0-75.0); Platelet Count 294 10^3/uL (150-450); Red Blood Count 5.57 10^6/uL (4.20-5.40); Red Cell Distribution Width 13.1 % (11.0-15.0); White Blood Count 14.7 10^3/uL (4.0-11.0)
[2023-08-04] MEDS: ALBUTEROL SULFATE 2.5 MG/3 ML VIAL NEB IH (15:36)
[2023-08-04] MEDS: METHYLPREDNISOLONE SOD SUCC PF 125 MG/2 ML VIAL IVP (15:38)
[2023-08-04 15:59] LABS: Anion Gap 16.3; BUN Creatinine Ratio 22.5; Carbon Dioxide 25.3 mmol/L (21.0-32.0); Chloride 104 mmol/L (98-107); Estimated GFR (African America 51 (>=60); Estimated GFR (Non-African Ame 42 (>=60); Glucose 101 mg/dL (74-106); Potassium 4.6 mmol/L (3.5-5.1); Sodium 141 mmol/L (136-145); Troponin I High Sensitivity 9.8 pg/mL (4.0-51.3)
== END 2023-08-04 17:28 | disposition home or self-care (01) ==
PROVIDERS: Emergency Provider Emergency Medicine; PCP Internal Medicine
DX: J06.9 Acute upper respiratory infection, unspecified (principal); J44.9 Chronic obstructive pulmonary disease, unspecified; F17.200 Nicotine dependence, unspecified, uncomplicated
CPT/HCPCS: 36415; 71045; 80048; 84484; 85025; 93005; 94640; 96374; 99285; J2919

== ENCOUNTER 2023-10-11 08:51 | Outpatient (OUT) | payer OTHER, SELFPAY ==
--- OUTSIDE RECORDS SUMMARY | 2023-10-11 09:00 | XMS_ITS | CCD ---
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 Name Role Phone Unavailable Primary Care Provider Unavailabl e ALEXANDR AMIN S Referring Unavailable NO FAMILY, PHYSICIAN Primary Care Provider Unava MD Alaina Hernandez Admit Provider MD Marquez Beal Referring Provider DO Rober Wyatt Other Provider DO Ricky Reynoso Attending Provider [phone] ALVA Hamm- Janet Attending Provider DARVIN Byrne Attending Provider [phone] Linn Byrne Unavailable Shaikh Thompson Unavailable Unavailable [...] McGuinn II, Marquez Jennings Referring Unav ailable Andrésuinn II, Marquez Jennings Attending Unav ailable MD Nick Thompson Primary Care Provider [phone] MD Kevyn Sharma Attending Provider CHARLEE THOMPSONIKH Primary Care Physician [phone] Padmini Sam Unavailable Kevyn Sharma Unavailable FAWWAD, [...] Unavailable GROVES ., DR JENNINGS Consulting Unavailable MCGUINN, DR SINGH Consulting Unavailable FAWWAD, DUNBAR H Primary Care Unavailable PAY ., DR ESCOBEDO Admitting Unavailable PAY ., DR ESCOBEDO Attending Unavailable PAY ., DR ESCOBEDO Consulting Unavailable AMY ROSS Consulting Unavailable JUWAN, DR CHRISTOPHER Young Admitting Unavailable JUWAN, DR CHRISTOPHER Young Attending Unavailable REQUEST, DR GARCIA LISTED Primary Care Unavailkamini GUIDRY, DR CHRISTOPHER Young Consulting Unavailable HAY ., DR CLEANING Consulting Unavailable GIOVANA MANN Consulting Unavailable FALVO, MAVIS Consulting Unavailable FAWWAD, DUNBAR H Admitting Unavailable FAWWAD, DUNBAR H Attending Unavailable FAWWAD, DUNBAR H Primary Care Unavailable [facility] DUN[facility] H Consulting Unavailable Shaikh Thompson MD Primary Care Provider [phone] SHARAKOVA DEBRA Referring Unavailable [facility], DUBNAR Primary Care Unavailable [facility] DEBRA Referring Unavailable [facility], DUNBAR Primary Care Unavailable Unavailable Unavailable GURMEET OJEDA Attending Unavailable [facility], [facility] Primary Care Unavailable GURMEET OJEDA Attending Unavailable DONNA, DUNBAR Referring Unavailable CHARLEE THOMPSONIKH Primary Care Unavailable MD Nick Thompson Primary Care Provider [phone] MD Jacques East Admit Provider MD Jacques East Attending Provider MD Marquez Beal Attending Provider Jacques East Admitting Unavailable Jacques East Attending Unavailable Donna, [facility] Primary Care Unavailable Marquez Beal Admitting Unavail able Marquez Beal Attending Unavail able [facility], [facility] Primary Care Unavailable DONNA, DUNBAR Attending Unavailable DONNA, DUNBAR Attending Unavailable ROSIE BLANCHARD Attending Unavailable ROSIE BLANCHARD Attending Unavailable DONNA, DUNBAR Attending Unavailable DONNA, DUNBAR Attending Unavailable DONNA, DUNBAR Attending Unavailable Dereck GROVES Attending Unavailable Gabby De Oliveira H Attending Unavailable Jaxson Johnson Attending Unavailable Damion Cheek Attending Unavailable [facility] DUNBAR Primary Care Unavailable TRUDY ADRIAN Attending Unavailable TRUDY ADRIAN Attending Unavailable Damion Cheek Admitting Unavailable Damion Cheek Attending Unavailable [facility], [facility] Primary Care Unavailable Jaxson Johnson Admitting Unavailable Jaxson Johnson Attending Unavailable MARQUEZ BEAL Attending Unavailable [facility], [facility] Primary Care Unavailable Allergies Allergy Classification Reported Allergen(s) Allergy Type Date of Onset Reaction(s) Facility (20 sources) Codeine; Translations: [CODEINE] Drug Allergy 5 Swelling, Swelling (finding) [facility] (1 source) Codeine Drug Allergy 2 [facility] Repository Medications Current Medications Medication [...] day(s), # 14 cap(s), Refills(s) 0, Pharmacy: [facility]/pharmacy #[id number], 163, cm, 02/10/23 14:52:00 EST, [...] day(s), # 21 cap(s), Refills(s) 0, Pharmacy: [facility]/pharmacy #[id number], 163, cm, 10/15/22 17:40:00 EDT, Height/Length Dosing, 72.3, kg, 10/15/22 17:40:00 EDT, Weight Dosing Start Date: 10/15/22 Stop Date: 10/22/22 Status: Ordered Start: 08-17-2021 End: 03-13-2022 take 500 mg by mouth four times daily Cephalexin Discontinued 500 MG PO Four times daily 12 August 16, 2021 11:00pm March 13, 2022 [...] Daily, # 30 cap(s), Refills(s) 2, Pharmacy: [facility] [id number], 163, cm, 06/14/22 13:00:00 EDT, Height/Length Dosing, [...] day(s), # 15 tab(s), Refills(s) 0, Pharmacy: [facility]/pharmacy #[id number], 163, cm, 02/10/23 14:52:00 EST, [...] tablet (6 sources) Start: 08-18-19 End: 03-13-19 take 10 [...] 03-12-2023 AST [Catalytic activity/Vol] 20 U/L Normal [facility] Comment on above: Order Comment: PT FA STED 121 HOURS Performed By: #### A ST, LIPID, BMP #### [facility] [address] [place] [id number] [place] Aspartate aminotransferase [ Enzymatic activity/volume] in Serum or PlasmaOrdered By: Marquez Beal on 03-12-2023 AST [Catalytic activity/Vol] 20 U/L [address] Basic Metabolic Panelon 02-19 Anion gap [Moles/Vol] 8.4 mmol/L Normal 6.0-15.0 [facility] Comment on above: Order Comment: PT FA STED 121 HOURS Performed By: #### A ST, LIPID, BMP #### [facility] [address] [place] [address] [place] Calcium [Mass/Vol] 9.8 mg/dL Normal 8.6-10.3 [facility] Comment on above: Order Comment: PT FA STED 121 HOURS Performed By: #### A ST, LIPID, BMP #### [facility] [address] [place] [address] [place] Chloride [Moles/Vol] 108 mmol/L High 98-107 [facility] Comment on above: Order Comment: PT FA STED 121 HOURS Performed By: #### A ST, LIPID, BMP #### [facility] [address] [place] [id number] [place] CO2 [Moles/Vol] 30.0 mmol/L Normal 21.0-31.0 [facility] Comment on above: Order Comment: PT FA STED 121 HOURS Performed By: #### A ST, LIPID, BMP #### [facility] [address] [place] [id number] [place] Creatinine [Mass/Vol] 1.39 mg/dL High 0.60-1.20 [facility] Comment on above: Order Comment: PT FA STED 121 HOURS Performed By: #### A ST, LIPID, BMP #### [facility] [address] [place] [address] [place] GFR/1.73 sq M.predicted MDRD (S/P/Bld) [Vol rate/Area] 43.442 mL/min/{1.73_m2} Normal [facility] Comment on above: Order Comment: PT FA STED 121 HOURS Performed By: #### A ST, LIPID, BMP #### [facility] [address] [place] [address] [place] Glucose [Mass/Vol] 93 mg/dL Normal 70-100 [facility] Comment on above: Order Comment: PT FA STED 121 HOURS Result Comment: [place] Glucose Reference Range is dependent on time and content of last meal. Glucose of more than 200 mg/dL in a nonstressed, ambulatory subject supports the diagnosis of Diabetes Mellitus. ADA recommended reference range Performed By: #### A ST, LIPID, BMP #### [facility] [address] [place] [id number] [place] Potassium [Moles/Vol] 5.4 mmol/L High 3.5-5.1 [facility] Comment on above: Order Comment: PT FA STED 121 HOURS Performed By: #### A ST, LIPID, BMP #### [facility] [address] [place] [id number] [place] Sodium [Moles/Vol] 141 mmol/L Normal 136-145 [facility] Comment on above: Order Comment: PT FA STED 121 HOURS Performed By: #### A ST, LIPID, BMP #### [facility] [address] [place] [address] [place] Urea nitrogen [Mass/Vol] 18 mg/dL Normal 7-25 [facility] Comment on above: Order Comment: PT FA STED 121 HOURS Performed By: #### A ST, LIPID, BMP #### [facility] [address] [place] [id number] [place] Calcium [Mass/volume] in Ser um or PlasmaOrdered By: Marquez Beal on 03-12-2023 Calcium [Mass/Vol] 9.8 mg/dL 8.6-10.3 [facility] Carbon dioxide, total [Moles /volume] in Serum or PlasmaOrdered By: Marquez Beal on 03-12-2023 CO2 [Moles/Vol] 30.0 mmol/L 21.0-31.0 [facility] Chloride [Moles/volume] in S oralia or PlasmaOrdered By: Marquez Beal on 03-12-2023 Chloride [Moles/Vol] 108 mmol/L 98-107 [facility] Cholesterol [Mass/volume] in Serum or PlasmaOrdered By: Marquez Beal on 03-12-2023 Cholesterol [Mass/Vol] 171 mg/dL 140-200 [facility] Comment on above: Chol less than 200 m g/dl low riskChol 201-239 mg/dl borderline riskChol 240 mg/dl and greater high risk Cholesterol in LDL Calc [Mas s/Vol]Ordered By: Marquez Beal on 03-12-2023 Cholesterol in LDL [Mass/Vol] 93 mg/dL 0-100 [facility] Comment on above: LDL ATP III CLASSIFI CATIONLDL less than 100 mg/dL OptimalLDL 100-129 mg/dL Near or above optimalLDL 130-159 mg/dL Borderline highLDL 160-189 mg/dL HighLDL greater than 189 mg/dL Very high Cholesterol in VLDL Calc [Ma ss/Vol]Ordered By: Marquez Beal on 03-12-2023 Cholesterol in VLDL [Mass/Vol] 33 mg/dL [facility] Creatinine [Mass/volume] in Serum or PlasmaOrdered By: Marquez Beal on 03-12-2023 Creatinine [Mass/Vol] 1.39 mg/dL 0.60-1.20 [facility] Glucose [Mass/volume] in Ser um or PlasmaOrdered By: Marquez Beal on 03-12-2023 Glucose [Mass/Vol] 93 mg/dL 70-100 [facility] Comment on above: ADA recommended refe rence rangeRandom Glucose Reference Range is dependent on time and content of last meal. Glucose of more than 200 mg/dL in a nonstressed, ambulatory subject supports the diagnosis of Diabetes Mellitus. Lipid Panelon 03-12-2023 Cholesterol [Mass/Vol] 171 mg/dL Normal 140-200 [facility] Comment on above: Order Comment: PT FA STED 121 HOURS Result Comment: Chol less than 200 mg/dl low risk Chol 201-239 mg/dl borderline risk Chol 240 mg/dl and greater high risk Performed By: #### A ST, LIPID, BMP #### [facility] [address] [place] [address] [place] Cholesterol in HDL [Mass/Vol] 45 mg/dL Normal 23-92 [facility] Comment on above: Order Comment: PT FA STED 121 HOURS Result Comment: HDL CHOL ATP-III CLASSIFICATION Cardiovascular Risk HDL > or equal to 60 mg/dL LOW HDL < 40 mg/dL HIGH Performed By: #### A ST, LIPID, BMP #### [facility] [address] [place] [id number] [facility] Cholesterol.total/Chol esterol in HDL [Mass ratio] 3.8 {ratio} Normal <5.0 [facility] Comment on above: Order Comment: PT FA STED 121 HOURS Result Comment: PERF ORMED BY: [facility] [address] [place] [address] PATHOLOGIST FRAUD INVESTIGATOR JERAMY CALDWELL M.D. Performed By: #### A ST, LIPID, BMP #### [facility] [address] [place] [id number] [place] LDL Cholesterol,Calculated 93 mg/dL Normal 0-100 [facility] Comment on above: Order Comment: PT FA STED 121 HOURS Result Comment: LDL ATP III CLASSIFICATION LDL less than 100 mg/dL Optimal LDL 100-129 mg/dL Near or above optimal LDL 130-159 mg/dL Borderline high LDL 160-189 mg/dL High LDL greater than 189 mg/dL Very high Performed By: #### A ST, LIPID, BMP #### [facility] [address] [place] [address] [place] Triglyceride w/Reflex 165 mg/dL High 0-149 [facility] Comment on above: Order Comment: PT FA STED 121 HOURS Result Comment: TRIG ATP III CLASSIFICATION TRIG less than 150 mg/dL Normal TRIG 150-199 mg/dL Borderline high TRIG 200-500 mg/dL High TRIG greater than 500 mg/dL Very high Standard traceable to the Center for Disease Conrtrol and Prevention (CDC) test method. Performed By: #### A ST, LIPID, BMP #### [facility] [address] [place] [address] [place] VLDL CHOLESTEROL 33 mg/dL Normal [facility] Comment on above: Order Comment: PT FA STED 121 HOURS Performed By: #### A ST, LIPID, BMP #### [facility] [address] No Panel InformationOrdered By: Marquez Beal on 03-12-2023 Estimated GFR (CKD-EPI) 43.442 mL/Min [facility] Pharmacy Creatinine Clearance (Chem N/A [facility] Potassium [Moles/volume] in Serum or PlasmaOrdered By: Marquez Beal on 03-12-2023 Potassium [Moles/Vol] 5.4 mmol/L 3.5-5.1 [facility] Serum or plasma anion gap de terminationOrdered By: Marquez Beal on 03-12-2023 Anion gap [Moles/Vol] 8.4 mmol/L 6.0-15.0 [facility] Serum or plasma high density lipoprotein (HDL) cholesterol measurementOrdered By: Marquez Beal on 03-12-2023 Cholesterol in HDL [Mass/Vol] 45 mg/dL [facility] Comment on above: HDL CHOL ATP-III CLA SSIFICATION Cardiovascular RiskHDL > or equal to 60 mg/dL LOWHDL < 40 mg/dL HIGH Serum or plasma total choles terol/high density lipoprotein (HDL) cholesterol mass ratOrdered By: Marquez Beal on 03-12-2023 Cholesterol.total/Chol esterol in HDL [Mass ratio] 3.8 {ratio} <5.0 [facility] Sodium [Moles/volume] in Ser um or PlasmaOrdered By: Marquez Beal on 03-12-2023 Sodium [Moles/Vol] 141 mmol/L 136-145 [facility] Triglyceride [Mass/volume] i n Serum or PlasmaOrdered By: Marquez Beal on 03-12-2023 Triglyceride [Mass/Vol] 165 mg/dL 0-149 [facility] Comment on above: TRIG ATP III CLASSIF ICATIONTRIG less than 150 mg/dL NormalTRIG 150-199 mg/dL Borderline highTRIG 200-500 mg/dL High TRIG greater than 500 mg/dL Very highStandard traceable to the Center for Disease Conrtrol and Prevention (CDC) test method. Urea nitrogen [Mass/volume] in Serum or PlasmaOrdered By: Marquez Beal on 03-12-2023 Urea nitrogen [Mass/Vol] 18 mg/dL 7-25 [facility] Basic Metabolic Panelon 12-2 Anion gap [Moles/Vol] 12.2 mmol/L Normal 6.0-15.0 [facility] Comment on above: Performed By: #### C BC, BMP ####[facility] [place] [id number] [facility] Calcium [Mass/Vol] 9.4 mg/dL Normal 8.6-10.3 [facility] Comment on above: Performed By: #### C BC, BMP ####[facility] [place] [address] [facility] Chloride [Moles/Vol] 103 mmol/L Normal 98-107 [facility] Comment on above: Performed By: #### C BC, BMP ####[facility] [place] [address] [facility] CO2 [Moles/Vol] 26.2 mmol/L Normal 21.0-31.0 [facility] Comment on above: Performed By: #### C BC, BMP ####[facility] [place] [address] [facility] Creatinine [Mass/Vol] 1.35 mg/dL High 0.60-1.20 [facility] Comment on above: Performed By: #### C BC, BMP ####[facility] [place] [address] [place] Creatinine Clr Calc Pharmacy 40.59 [facility] Comment on above: Result Comment: PERF ORMED BY: [facility] [address] [place] [id number] PATHOLOGIST FRAUD INVESTIGATOR JERAMY CALDWELL M.D. Performed By: #### C BC, BMP ####[address] [place] [address] [place] GFR/1.73 sq M.predicted MDRD (S/P/Bld) [Vol rate/Area] 44.991 mL/min/{1.73_m2} [facility] Comment on above: Performed By: #### C BC, BMP ####[address] [place] [address] [facility] Glucose [Mass/Vol] 136 mg/dL High 70-100 [facility] Comment on above: Result Comment: [place] Glucose Reference Range is dependent on time and content of last meal. Glucose of more than 200 mg/dL in a nonstressed, ambulatory subject supports the diagnosis of Diabetes Mellitus. ADA recommended reference range Performed By: #### C BC, BMP ####[address] [place] [address] [place] Potassium [Moles/Vol] 5.4 mmol/L High 3.5-5.1 [facility] Comment on above: Performed By: #### C BC, BMP ####[address] [place] [address] [place] Sodium [Moles/Vol] 136 mmol/L Normal 136-145 [facility] Comment on above: Performed By: #### C BC, BMP ####[address] [place] [address] [facility] Urea nitrogen [Mass/Vol] 33 mg/dL High 7-25 [facility] Comment on above: Performed By: #### C BC, BMP ####[facility] [place] [address] [facility] Basophils Auto (Bld) [#/Vol] Ordered By: Jacques Chirinosr on 02-14-2023 Basophils (Bld) [#/Vol] 0.0 10*3/uL 0.0-0.2 [facility] Basophils/100 WBC Auto (Bld) Ordered By: Obreinaldo Talbotomar on 02-14-2023 Basophils/100 WBC (Bld) 0.1 % . [facility] Calcium [Mass/volume] in Ser um or PlasmaOrdered By: Jacques Talbotomar on 02-14-2023 Calcium [Mass/Vol] 9.4 mg/dL 8.6-10.3 [facility] Carbon dioxide, total [Moles /volume] in Serum or PlasmaOrdered By: Jacques Talbotomar on 02-14-2023 CO2 [Moles/Vol] 26.2 mmol/L 21.0-31.0 [facility] Chloride [Moles/volume] in S oralia or PlasmaOrdered By: Jacques Talbotomar on 02-14-2023 Chloride [Moles/Vol] 103 mmol/L 98-107 [facility] Complete Blood Count Auto Di ffon 02-14-2023 Basophils (Bld) [#/Vol] 0.0 10*3/uL Normal 0.0-0.2 [facility] Comment on above: Result Comment: PERF ORMED BY: [facility] [address] [place] [id number] PATHOLOGIST FRAUD INVESTIGATOR JERAMY CALDWELL M.D. Performed By: #### C JUANITA, BMP ####[place] [address] [place] [id number] [facility] Basophils/100 WBC (Bld) 0.1 % Normal . [facility] Comment on above: Performed By: #### C BC, BMP ####[place] [place] [place] [id number] [facility] Eosinophils (Bld) [#/Vol] 0.0 10*3/uL Normal 0.0-0.45 [facility] Comment on above: Performed By: #### C BC, BMP ####[place] [id number] [facility] Eosinophils/100 WBC (Bld) 0.0 % Normal . [facility] Comment on above: Performed By: #### C BC, BMP ####[place] [id number] [facility] Erythrocyte distribution width (RBC) [Ratio] 14.6 % Normal 11.9-15.3 [facility] Comment on above: Performed By: #### C BC, BMP ####[place] [id number] [facility] Hematocrit (Bld) [Volume fraction] 44.5 % Normal 34.0-46.4 [facility] Comment on above: Performed By: #### C BC, BMP ####[place] [id number] [facility] Hemoglobin (Bld) [Mass/Vol] 15.1 g/dL Normal 11.8-15.4 [facility] Comment on above: Performed By: #### C JUANITA, BMP ####[place] [id number] [facility] Lymphocytes (Bld) [#/Vol] 1.0 10*3/uL Normal 1.00-4.8 [facility] Comment on above: Performed By: #### C BC, BMP ####[place] [id number] [facility] Lymphocytes/100 WBC (Bld) 7.6 % Normal . [facility] Comment on above: Performed By: #### C BC, BMP ####[address] [address] [facility] MCH (RBC) [Entitic mass] 30.6 pg Normal 24.7-34.3 [facility] Comment on above: Performed By: #### C BC, BMP ####[place] [id number] [facility] MCV (RBC) [Entitic vol] 90.4 fL Normal 80-100 [facility] Comment on above: Performed By: #### C BC, BMP ####[facility] [place] [address] [facility] Mean Corpuscular HGB Conc 33.9 g/dL Normal 32.0-35.0 [facility] Comment on above: Performed By: #### C BC, BMP ####[address] [place] [address] [facility] Monocytes (Bld) [#/Vol] 0.6 10*3/uL Normal 0.0-0.8 [facility] Comment on above: Performed By: #### C BC, BMP ####[address] [address] [facility] Monocytes/100 WBC (Bld) 4.7 % Normal . [facility] Comment on above: Performed By: #### C JUANITA, BMP ####[address] [address] [facility] Neutrophils (Bld) [#/Vol] 11.1 10*3/uL High 1.8-7.7 [facility] Comment on above: Performed By: #### C JUANITA, BMP ####[address] [address] [facility] Neutrophils/100 WBC (Bld) 87.6 % Normal . [facility] Comment on above: Performed By: #### C BC, BMP ####[address] [place] [address] [facility] NRBC% 0.0 /100{WBC} Normal 0-0.5 [facility] Comment on above: Performed By: #### C BC, BMP ####[address] [address] [facility] Platelet mean volume (Bld) [Entitic vol] 8.5 fL Normal 6.3-10.7 [facility] Comment on above: Performed By: #### C BC, BMP ####[address] [address] [facility] Platelets (Bld) [#/Vol] 220 10*3/uL Normal 150-450 [facility] Comment on above: Performed By: #### C BC, BMP ####[facility] [address] [place] [address] [facility] RBC (Bld) [#/Vol] 4.92 10*6/uL Normal 3.60-5.00 [facility] Comment on above: Performed By: #### C BC, BMP ####[facility] [address] [place] [address] [facility] WBC (Bld) [#/Vol] 12.7 10*3/uL High 3.8-11.6 [facility] Comment on above: Performed By: #### C , BMP ####[facility] [address] [place] [id number] [facility] Creatinine [Mass/volume] in Serum or PlasmaOrdered By: Jacques East on 02-14-2023 Creatinine [Mass/Vol] 1.35 mg/dL 0.60-1.20 [facility] Eosinophils Auto (Bld) [#/Vo l]Ordered By: Jacques Talbotomar on 02-14-2023 Eosinophils (Bld) [#/Vol] 0.0 10*3/uL 0.0-0.45 [facility] Eosinophils/100 WBC Auto (Bl d)Ordered By: Obpatriciadaenrique Talbotomar on 02-14-2023 Eosinophils/100 WBC (Bld) 0.0 % . [facility] Erythrocyte distribution wid th Auto (RBC) [Ratio]Ordered By: Jacques Chirinosr on 02-14-2023 Erythrocyte distribution width (RBC) [Ratio] 14.6 % 11.9-15.3 [facility] Glucose [Mass/volume] in Ser um or PlasmaOrdered By: Jacques Talbotomar on 02-14-2023 Glucose [Mass/Vol] 136 mg/dL 70-100 [facility] Comment on above: ADA recommended refe rence rangeRandom Glucose Reference Range is dependent on time and content of last meal. Glucose of more than 200 mg/dL in a nonstressed, ambulatory subject supports the diagnosis of Diabetes Mellitus. Hematocrit Auto (Bld) [Volum e fraction]Ordered By: Jacques Chirinosr on 02-14-2023 Hematocrit (Bld) [Volume fraction] 44.5 % 34.0-46.4 [facility] Hemoglobin [Mass/volume] in BloodOrdered By: Jacques Talbotomar on 02-14-2023 Hemoglobin (Bld) [Mass/Vol] 15.1 g/dL 11.8-15.4 [facility] Leukocytes [#/volume] correc elliot for nucleated erythrocytes in Blood by Automated counOrdered By: Obpatriciadaenrique Talbotomar on 02-14-2023 WBC corrected for nucl RBC Auto (Bld) [#/Vol] 12.7 10*3/uL 3.8-11.6 [facility] Lymphocytes Auto (Bld) [#/Vo l]Ordered By: Obpatriciadaenrique Talbotomar on 02-14-2023 Lymphocytes (Bld) [#/Vol] 1.0 10*3/uL 1.00-4.8 [facility] Lymphocytes/100 WBC Auto (Bl d)Ordered By: Obpatriciadaenrique Talbotomar on 02-14-2023 Lymphocytes/100 WBC (Bld) 7.6 % . [facility] MCH Auto (RBC) [Entitic mass ]Ordered By: Jacques Talbotomar on 02-14-2023 MCH (RBC) [Entitic mass] 30.6 pg 24.7-34.3 [facility] MCHC Auto (RBC) [Mass/Vol]Or dered By: Obpatriciadaenrique Talbotomar on 02-14-2023 MCHC (RBC) [Mass/Vol] 33.9 g/dL 32.0-35.0 [facility] MCV Auto (RBC) [Entitic vol] Ordered By: Obpatriciadaenrique Talbotomar on 02-14-2023 MCV (RBC) [Entitic vol] 90.4 fL 80-100 [facility] Monocytes Auto (Bld) [#/Vol] Ordered By: Obpatriciadah Antioneomar on 02-14-2023 Monocytes (Bld) [#/Vol] 0.6 10*3/uL 0.0-0.8 [facility] Monocytes/100 WBC Auto (Bld) Ordered By: Obpatriciadah Daromar on 12-28-2023 Monocytes/100 WBC (Bld) 4.7 % . [facility] Neutrophils Auto (Bld) [#/Vo l]Ordered By: Obreinaldo Talbotomar on 02-14-2023 Neutrophils (Bld) [#/Vol] 11.1 10*3/uL 1.8-7.7 [facility] Neutrophils/100 WBC Auto (Bl d)Ordered By: Obpatriciadaenrique Talbotomar on 02-14-2023 Neutrophils/100 WBC (Bld) 87.6 % . [facility] No Panel InformationOrdered By: Obreinaldo Talbotomar on 02-14-2023 Estimated GFR (CKD-EPI) 44.991 mL/Min [facility] Pharmacy Creatinine Clearance (Chem 40.59 [facility] Nucleated erythrocytes [Pres ence] in Blood by Automated countOrdered By: Jacques Talbotomar on 02-14-2023 Nucleated RBC Auto Ql (Bld) 0.0 /100{WBC} 0-0.5 [facility] Platelet mean volume Auto (B ld) [Entitic vol]Ordered By: Obreinaldo Talbotomar on 02-14-2023 Platelet mean volume (Bld) [Entitic vol] 8.5 fL 6.3-10.7 [facility] Platelets Auto (Bld) [#/Vol] Ordered By: Obreinaldo Talbotomar on 02-14-2023 Platelets (Bld) [#/Vol] 220 10*3/uL 150-450 [facility] Potassium [Moles/volume] in Serum or PlasmaOrdered By: Obpatriciadaenrique Talbotomar on 02-14-2023 Potassium [Moles/Vol] 5.4 mmol/L 3.5-5.1 [facility] RBC Auto (Bld) [#/Vol]Ordere d By: Obpatriciadah Antioneomar on 02-14-2023 RBC (Bld) [#/Vol] 4.92 10*6/uL 3.60-5.00 [facility] Serum or plasma anion gap de terminationOrdered By: Obpatriciadah Antioneomar on 02-14-2023 Anion gap [Moles/Vol] 12.2 mmol/L 6.0-15.0 [facility] Sodium [Moles/volume] in Ser um or PlasmaOrdered By: Obpatriciadaenrique Talbotomar on 02-14-2023 Sodium [Moles/Vol] 136 mmol/L 136-145 [facility] Urea nitrogen [Mass/volume] in Serum or PlasmaOrdered By: Obpatriciadaenrique Talbotomar on 02-14-2023 Urea nitrogen [Mass/Vol] 33 mg/dL 7-25 [facility] WBC Auto (Bld) [#/Vol]Ordere d By: Obaydah Daromar on 02-14-2023 WBC (Bld) [#/Vol] 12.7 10*3/uL 3.8-11.6 [facility] Alanine aminotransferase [En zymatic activity/volume] in Serum or PlasmaOrdered By: Obreinaldo Talbotomar on 02-13-2023 ALT [Catalytic activity/Vol] 16 U/L 7-52 [facility] Albumin [Mass/volume] in Ser um or Plasma by Bromocresol green (BCG) dye binding methoOrdered By: Obpatriciadaenrique Talbotomar on 02-13-2023 Albumin BCG dye [Mass/Vol] 4.0 g/dL 3.5-5.7 [facility] Alkaline phosphatase [Enzyma tic activity/volume] in Serum or PlasmaOrdered By: Obpatriciadaenrique Talbotomar on 02-13-2023 ALP [Catalytic activity/Vol] 57 U/L 34-104 [facility] Aspartate aminotransferase [ Enzymatic activity/volume] in Serum or PlasmaOrdered By: Obpatriciadaenrique Talbotomar on 02-13-2023 AST [Catalytic activity/Vol] 22 U/L 13-39 [facility] Bilirubin.total [Mass/volume ] in Serum or PlasmaOrdered By: Obpatriciadaenrique Talbotomar on 02-13-2023 Bilirubin [Mass/Vol] 0.6 mg/dL 0.3-1.0 [facility] Complete Blood Count Auto Di ffon 02-13-2023 Basophils (Bld) [#/Vol] 0.0 10*3/uL Normal 0.0-0.2 [facility] Comment on above: Result Comment: PERF ORMED BY: [facility] [address] [place] [address] PATHOLOGIST FRAUD INVESTIGATOR JERAMY CALDWELL M.D. Performed By: #### C BC MG, CMP ####[address] Basophils/100 WBC (Bld) 0.2 % Normal . [facility] Comment on above: Performed By: #### C BC MG, CMP ####[address] Eosinophils (Bld) [#/Vol] 0.0 10*3/uL Normal 0.0-0.45 [facility] Comment on above: Performed By: #### C BC MG, CMP ####[address] Eosinophils/100 WBC (Bld) 0.0 % Normal . [facility] Comment on above: Performed By: #### C BC MG, CMP ####[address] Erythrocyte distribution width (RBC) [Ratio] 14.4 % Normal 11.9-15.3 [facility] Comment on above: Performed By: #### C BC MG, CMP ####[address] Hematocrit (Bld) [Volume fraction] 43.2 % Normal 34.0-46.4 [facility] Comment on above: Performed By: #### C BC MG, CMP ####[address] Hemoglobin (Bld) [Mass/Vol] 14.6 g/dL Normal 11.8-15.4 [facility] Comment on above: Performed By: #### C BC, MG, CMP ####[address] Lymphocytes (Bld) [#/Vol] 2.7 10*3/uL Normal 1.00-4.8 [facility] Comment on above: Performed By: #### C BC, MG, CMP ####[address] Lymphocytes/100 WBC (Bld) 18.3 % Normal . [facility] Comment on above: Performed By: #### C JUANITA MG, CMP ####[address] MCH (RBC) [Entitic mass] 30.5 pg Normal 24.7-34.3 [facility] Comment on above: Performed By: #### C JUANITA MG, CMP ####[address] MCV (RBC) [Entitic vol] 90.1 fL Normal 80-100 [facility] Comment on above: Performed By: #### C JUANITA MG, CMP ####[address] Mean Corpuscular HGB Conc 33.8 g/dL Normal 32.0-35.0 [facility] Comment on above: Performed By: #### C JUANITA MG, CMP ####[address] Monocytes (Bld) [#/Vol] 1.2 10*3/uL High 0.0-0.8 [facility] Comment on above: Performed By: #### C JUANITA MG, CMP ####[address] Monocytes/100 WBC (Bld) 7.9 % Normal . [facility] Comment on above: Performed By: #### C JUANITA MG, CMP ####[address] Neutrophils (Bld) [#/Vol] 11.0 10*3/uL High 1.8-7.7 [facility] Comment on above: Performed By: #### C BC MG, CMP ####[place] [id number] [facility] Neutrophils/100 WBC (Bld) 73.6 % Normal . [facility] Comment on above: Performed By: #### C JUANITA MG, CMP ####[address] NRBC% 0.1 /100{WBC} Normal 0-0.5 [facility] Comment on above: Performed By: #### C BC, MG, CMP ####[address] Platelet mean volume (Bld) [Entitic vol] 7.8 fL Normal 6.3-10.7 [facility] Comment on above: Performed By: #### C BC, MG, CMP ####[place] [id number] [facility] Platelets (Bld) [#/Vol] 212 10*3/uL Normal 150-450 [facility] Comment on above: Performed By: #### C BC, MG, CMP ####[address] RBC (Bld) [#/Vol] 4.80 10*6/uL Normal 3.60-5.00 [facility] Comment on above: Performed By: #### C BC, MG, CMP ####[address] WBC (Bld) [#/Vol] 14.9 10*3/uL High 3.8-11.6 [facility] Comment on above: Performed By: #### C BC, MG, CMP ####[address] Comprehensive Metabolic Pane franco 02-13-2023 Albumin [Mass/Vol] 4.0 g/dL Normal 3.5-5.7 [facility] Comment on above: Performed By: #### C BC, MG, CMP ####[place] [id number] [facility] Albumin/Globulin [Mass ratio] 1.6 {ratio} Normal [facility] Comment on above: Performed By: #### C BC, MG, CMP ####[address] ALP [Catalytic activity/Vol] 57 U/L Normal 34-104 [facility] Comment on above: Performed By: #### C BC MG, CMP ####[place] [id number] [place] [id number] [facility] ALT [Catalytic activity/Vol] 16 U/L Normal 7-52 [facility] Comment on above: Performed By: #### C BC MG, CMP ####[place] [id number] [facility] Anion gap [Moles/Vol] 9.4 mmol/L Normal 6.0-15.0 [facility] Comment on above: Performed By: #### C JUANITA MG, CMP ####[address] AST [Catalytic activity/Vol] 22 U/L Normal 13-39 [facility] Comment on above: Performed By: #### C BC MG, CMP ####[place] [id number] [facility] Bilirubin [Mass/Vol] 0.6 mg/dL Normal 0.3-1.0 [facility] Comment on above: Performed By: #### C BC MG, CMP ####[place] [id number] [facility] Calcium [Mass/Vol] 9.2 mg/dL Normal 8.6-10.3 [facility] Comment on above: Performed By: #### C BC, MG, CMP ####[place] [id number] [facility] Chloride [Moles/Vol] 105 mmol/L Normal 98-107 [facility] Comment on above: Performed By: #### C BC MG, CMP ####[place] [id number] [facility] CO2 [Moles/Vol] 27.1 mmol/L Normal 21.0-31.0 [facility] Comment on above: Performed By: #### C BC, MG, CMP ####[place] [id number] [facility] Creatinine [Mass/Vol] 1.45 mg/dL High 0.60-1.20 [facility] Comment on above: Performed By: #### C BC, MG, CMP ####[place] [id number] [facility] Creatinine Clr Calc Pharmacy 37.90 [facility] Comment on above: Performed By: #### C BC, MG, CMP ####[address] GFR/1.73 sq M.predicted MDRD (S/P/Bld) [Vol rate/Area] 41.294 mL/min/{1.73_m2} [facility] Comment on above: Performed By: #### C BC, MG, CMP ####[address] Globulin (S) [Mass/Vol] 2.5 g/dL [facility] Comment on above: Performed By: #### C BC, MG, CMP ####[address] Glucose [Mass/Vol] 92 mg/dL Normal 70-100 [facility] Comment on above: Result Comment: [place] Glucose Reference Range is dependent on time and content of last meal. Glucose of more than 200 mg/dL in a nonstressed, ambulatory subject supports the diagnosis of Diabetes Mellitus. ADA recommended reference range Performed By: #### C BC, MG, CMP ####[place] [id number] [facility] Potassium [Moles/Vol] 4.5 mmol/L Normal 3.5-5.1 [facility] Comment on above: Performed By: #### C BC, MG, CMP ####[place] [phone] [facility] Protein [Mass/Vol] 6.5 g/dL Normal 6.4-8.9 [facility] Comment on above: Performed By: #### C BC, MG, CMP ####[place] [id number] [facility] Sodium [Moles/Vol] 137 mmol/L Normal 136-145 [facility] Comment on above: Performed By: #### C BC, MG, CMP ####[place] [id number] [place] [phone] [facility] Urea nitrogen [Mass/Vol] 28 mg/dL High 7-25 [facility] Comment on above: Performed By: #### C BC, MG, CMP ####[facility] [place] [address] [facility] Globulin Calc (S) [Mass/Vol] Ordered By: Obpatriciadah Daromar on 02-13-2023 Globulin (S) [Mass/Vol] 2.5 g/dL [facility] Magnesiumon 02-13-2023 Magnesium [Mass/Vol] 1.8 mg/dL Low 1.9-2.7 [facility] Comment on above: Result Comment: PERF ORMED BY: [facility] [address] [place] [id number] PATHOLOGIST FRAUD INVESTIGATOR JERAMY CALDWELL M.D. Performed By: #### C BC, MG, CMP ####[place] [address] [place] [address] [facility] Magnesium [Mass/volume] in S oralia or PlasmaOrdered By: Obpatriciadah Daromar on 02-13-2023 Magnesium [Mass/Vol] 1.8 mg/dL 1.9-2.7 [facility] Protein [Mass/volume] in Ser um or PlasmaOrdered By: Obaydah Daromar on 02-13-2023 Protein [Mass/Vol] 6.5 g/dL 6.4-8.9 [facility] Serum or plasma albumin/glob ulin mass ratioOrdered By: Obaydah Daromar on 02-13-2023 Albumin/Globulin [Mass ratio] 1.6 {ratio} [facility] Activated partial thrombopla stin time (aPTT) in platelet poor plasma by coagulation aOrdered By: Sally Valle on 02-12-2023 aPTT Coag (PPP) [Time] 25.6 s 25.1-36.5 [facility] Comment on above: A hematocrit value g reater than 55% may lead to inaccurate results in coagulation testing. Patients having hematocrit values >55% require a special collection tube for coagulation studies. Please contact the laboratory at [phone] for redraw instructions. Aerobic Cultureon 02-12-2023 Aerobic Culture Light Normal Respira tory Zoe 2 Days Gram Stain Result Rare Epithelial Cells 1+ White Blood Cells Rare Gram Positive Coccobacilli PERFORMED BY: [place] [id number] PATHOLOGIST FRAUD INVESTIGATOR JERAMY CALDWELL M.D. Normal [facility] Comment on above: Performed By: #### A HANNAH, #### [address] Auth for Release of Medical Recordson 02-12-2023 Auth for Release of Medical Records [id number] Normal [facility] Automated erythrocytes count in urine sediment (number/area)Ordered By: Jacques East on 02-12-2023 RBC Auto (Urine sed) [#/Area] 1-2 [HPF] 0-4 [facility] Automated leukocytes count i n urine sediment (number/area)Ordered By: Jacques Chirinosr on 02-12-2023 WBC Auto (Urine sed) [#/Area] 3-4 [HPF] 0-4 [facility] Bilirubin Test strip Ql (U)O rdered By: Jacques East on 02-12-2023 Bilirubin Ql (U) Negative Negative [facility] C Urineon 02-12-2023 Bacteria identified Cx Nom (U) Microbiology PROCEDURE: Urine Culture [R1] SOURCE: U CleanCatch BODY SITE: COLLECTED DATE/TIME: 02/10/2023 14:48 EST RECEIVED DATE/TIME: 02/10/2023 17:04 EST START DATE/TIME: 02/10/2023 17:04 EST FREE TEXT SOURCE: Alex BRIDGES, Jaxson W. Alex BRIDGES, Jaxson Weiss. FINAL REPORTS Final [...] Locations R1: This test was performed at: [facility], [address] [place] [address], [id number] , [place], Normal [facility] Comment on above: Performed By: #### 2 [id number] ####[facility] [address] [address] Coagulation Profileon 2022 aPTT Coag (Bld) [Time] 25.6 s Normal 25.1-36.5 [facility] Comment on above: Result Comment: A he matocrit value greater than 55% may lead to inaccurate results in coagulation testing. Patients having hematocrit values >55% require a special collection tube for coagulation studies. Please contact the laboratory at [phone] for redraw instructions. PERFORMED BY: [facility] [address] [facility] [place] [address] PATHOLOGIST FRAUD INVESTIGATOR JERAMY CALDWELL M.D. Performed By: #### C JUANITA, PP, CMP ####[place] [address] [place] [address] [facility] INR Coag (PPP) [Relative time] 0.9 {INR} Normal [facility] Comment on above: Result Comment: [...] Performed By: #### C BC, PP, CMP ####[address] [address] [facility] PT Coag (PPP) [Time] 10.9 s Normal 9.0-12.9 [facility] Comment on above: Result Comment: A he matocrit value greater than 55% may lead to inaccurate results in coagulation testing. Patients having hematocrit values >55% require a special collection tube for coagulation studies. Please contact the laboratory at [phone] for redraw instructions. Performed By: #### C BC, PP, CMP ####[place] [address] [place] [address] [facility] Color Auto (U)Ordered By: Ob reinaldo East on 02-12-2023 Color (U) Yellow Yellow [facility] Complete Blood Count Auto Di ffon 02-12-2023 Basophils (Bld) [#/Vol] 0.0 10*3/uL Normal 0.0-0.2 [facility] Comment on above: Result Comment: PERF ORMED BY: [place] [address] PATHOLOGIST FRAUD INVESTIGATOR JERAMY CALDWELL M.D. Performed By: #### C BC, PP, CMP #### [facility] [address] Basophils/100 WBC (Bld) 0.2 % Normal . [facility] Comment on above: Performed By: #### C BC, PP, CMP #### [facility] [address] Eosinophils (Bld) [#/Vol] 0.0 10*3/uL Normal 0.0-0.45 [facility] Comment on above: Performed By: #### C BC, PP, CMP #### [facility] [address] [place] [address] [place] Eosinophils/100 WBC (Bld) 0.0 % Normal . [facility] Comment on above: Performed By: #### C BC, PP, CMP #### [facility] [address] [place] [address] Erythrocyte distribution width (RBC) [Ratio] 14.6 % Normal 11.9-15.3 [facility] Comment on above: Performed By: #### C BC, PP, CMP #### [facility] [address] Hematocrit (Bld) [Volume fraction] 46.1 % Normal 34.0-46.4 [facility] Comment on above: Performed By: #### C BC, PP, CMP #### [facility] [address] [place] [address] Hemoglobin (Bld) [Mass/Vol] 15.6 g/dL High 11.8-15.4 [facility] Comment on above: Performed By: #### C BC, PP, CMP #### [facility] [address] [place] [address] [place] Lymphocytes (Bld) [#/Vol] 0.6 10*3/uL Low 1.00-4.8 [facility] Comment on above: Performed By: #### C BC, PP, CMP #### [facility] [address] [place] [address] [place] Lymphocytes/100 WBC (Bld) 4.0 % Normal . [facility] Comment on above: Performed By: #### C BC, PP, CMP #### [facility] [address] MCH (RBC) [Entitic mass] 30.6 pg Normal 24.7-34.3 [facility] Comment on above: Performed By: #### C BC, PP, CMP #### [facility] [address] MCV (RBC) [Entitic vol] 90.6 fL Normal 80-100 [facility] Comment on above: Performed By: #### C BC, PP, CMP #### [facility] [address] Mean Corpuscular HGB Conc 33.8 g/dL Normal 32.0-35.0 [facility] Comment on above: Performed By: #### C BC, PP, CMP #### [facility] [address] [place] [address] [place] Monocytes (Bld) [#/Vol] 0.3 10*3/uL Normal 0.0-0.8 [facility] Comment on above: Performed By: #### C BC, PP, CMP #### [facility] [address] [place] [address] [place] Monocytes/100 WBC (Bld) 1.8 % Normal . [facility] Comment on above: Performed By: #### C BC, PP, CMP #### [facility] [address] [place] [address] [place] Neutrophils (Bld) [#/Vol] 14.1 10*3/uL High 1.8-7.7 [facility] Comment on above: Performed By: #### C BC, PP, CMP #### [address] Neutrophils/100 WBC (Bld) 94.0 % Normal . [facility] Comment on above: Performed By: #### C BC, PP, CMP #### [address] NRBC% 0.1 /100{WBC} Normal 0-0.5 [facility] Comment on above: Performed By: #### C BC, PP, CMP #### [address] Platelet mean volume (Bld) [Entitic vol] 7.9 fL Normal 6.3-10.7 [facility] Comment on above: Performed By: #### C BC, PP, CMP #### [address] Platelets (Bld) [#/Vol] 236 10*3/uL Normal 150-450 [facility] Comment on above: Performed By: #### C BC, PP, CMP #### [address] RBC (Bld) [#/Vol] 5.09 10*6/uL High 3.60-5.00 [facility] Comment on above: Performed By: #### C BC, PP, CMP #### [address] WBC (Bld) [#/Vol] 15.0 10*3/uL High 3.8-11.6 [facility] Comment on above: Performed By: #### C BC, PP, CMP #### [address] Comprehensive Metabolic Pane franco 02-12-2023 Albumin [Mass/Vol] 4.6 g/dL Normal 3.5-5.7 [facility] Comment on above: Performed By: #### C BC, PP, CMP #### [place] [address] [place] Albumin/Globulin [Mass ratio] 1.5 {ratio} Normal [facility] Comment on above: Performed By: #### C JUANITA PP, CMP #### [facility] [address] ALP [Catalytic activity/Vol] 70 U/L Normal 34-104 [facility] Comment on above: Performed By: #### C JUANITA, PP, CMP #### [address] ALT [Catalytic activity/Vol] 19 U/L Normal 7-52 [facility] Comment on above: Performed By: #### C JUANITA PP, CMP #### [address] Anion gap [Moles/Vol] Not performed Normal 6.0-15.0 [facility] Comment on above: Performed By: #### C JUANITA PP, CMP #### [address] AST [Catalytic activity/Vol] 29 U/L Normal 13-39 [facility] Comment on above: Performed By: #### C JUANITA PP, CMP #### [address] Bilirubin [Mass/Vol] 0.5 mg/dL Normal 0.3-1.0 [facility] Comment on above: Performed By: #### C JUANITA PP, CMP #### [address] Calcium [Mass/Vol] 9.9 mg/dL Normal 8.6-10.3 [facility] Comment on above: Performed By: #### C JUANITA, PP, CMP #### [facility] [address] [place] [address] Chloride [Moles/Vol] 106 mmol/L Normal 98-107 [facility] Comment on above: Performed By: #### C BC, PP, CMP #### [address] CO2 [Moles/Vol] 20.4 mmol/L Low 21.0-31.0 [facility] Comment on above: Performed By: #### C BC, PP, CMP #### [facility] [address] Creatinine [Mass/Vol] 1.65 mg/dL High 0.60-1.20 [facility] Comment on above: Performed By: #### C BC, PP, CMP #### [facility] [address] Creatinine Clr Calc Pharmacy 34.03 [facility] Comment on above: Result Comment: PERF ORMED BY: [place] [address] PATHOLOGIST FRAUD INVESTIGATOR JERAMY CALDWELL M.D. Performed By: #### C BC, PP, CMP #### [facility] [address] GFR/1.73 sq M.predicted MDRD (S/P/Bld) [Vol rate/Area] 35.363 mL/min/{1.73_m2} [facility] Comment on above: Performed By: #### C BC, PP, CMP #### [facility] [address] Globulin (S) [Mass/Vol] 3.1 g/dL [facility] Comment on above: Performed By: #### C BC, PP, CMP #### [facility] [address] Glucose [Mass/Vol] 157 mg/dL High 70-100 [facility] Comment on above: Result Comment: [place] Glucose Reference Range is dependent on time and content of last meal. Glucose of more than 200 mg/dL in a nonstressed, ambulatory subject supports the diagnosis of Diabetes Mellitus. ADA recommended reference range Performed By: #### C BC, PP, CMP #### [facility] [address] Potassium Normal 3.5-5.1 [facility] Comment on above: Result Comment: Spec imen hemolyzed, redraw requested Performed By: #### C BC, PP, CMP #### [facility] [address] [place] [id number] [place] Protein [Mass/Vol] 7.7 g/dL Normal 6.4-8.9 [facility] Comment on above: Performed By: #### C BC, PP, CMP #### [facility] [address] Sodium [Moles/Vol] 140 mmol/L Normal 136-145 [facility] [facility] Comment on above: Performed By: #### C BC, PP, CMP #### [facility] [address] Urea nitrogen [Mass/Vol] 32 mg/dL High 09-11 [facility] Comment on above: Performed By: #### C BC, PP, CMP #### [facility] [address] [place] [address] [place] Dipstick and Microscopicon 1 04-15-2022 Appearance (U) Clear Normal Clear [facility] Comment on above: Order Comment: Name Collection Type:: Clean-Voided Midstream Performed By: #### A DDONUAPLUS #### [facility] [address] [place] [address] [place] Bacteria,Urine None Seen Normal None Seen [facility] Comment on above: Order Comment: Name Collection Type:: Clean-Voided Midstream Performed By: #### A DDONUAPLUS #### [facility] [address] [place] [address] [place] Bilirubin,Urine Negative Normal Negative [facility] Comment on above: Order Comment: Name Collection Type:: Clean-Voided Midstream Performed By: #### A DDONUAPLUS #### [facility] [address] [place], [place] [address] [place] Color (U) Yellow Normal Yellow [facility] Comment on above: Order Comment: Name Collection Type:: Clean-Voided Midstream Performed By: #### A DDONUAPLUS #### [facility] [address] [place] [address] [place] Glucose Ql (U) Normal Normal Normal [facility] Comment on above: Order Comment: Name Collection Type:: Clean-Voided Midstream Performed By: #### A DDONUAPLUS #### [place] [address] [place] Hyaline Casts,Urine 0-8 Normal 0-8 [facility] Comment on above: Order Comment: Name Collection Type:: Clean-Voided Midstream Result Comment: PERF ORMED BY: [place] [address] PATHOLOGIST FRAUD INVESTIGATOR JERAMY CALDWELL M.D. Performed By: #### A DDONUAPLUS #### [address] Ketones Ql (U) Negative Normal Negative [facility] Comment on above: Order Comment: Name Collection Type:: Clean-Voided Midstream Performed By: #### A DDONUAPLUS #### [address] Leukocyte esterase Test strip Ql (U) 1+ High Negative [facility] Comment on above: Order Comment: Name Collection Type:: Clean-Voided Midstream Performed By: #### A DDONUAPLUS #### [place] [address] [place] Nitrite,Urine Negative Normal Negative [facility] Comment on above: Order Comment: Name Collection Type:: Clean-Voided Midstream Performed By: #### A DDONUAPLUS #### [place] [address] [place] Occult Blood,Urine Negative Normal Negative [facility] Comment on above: Order Comment: Name Collection Type:: Clean-Voided Midstream Result Comment: PERF ORMED BY: [place] [address] PATHOLOGIST FRAUD INVESTIGATOR JERAMY CALDWELL M.D. Performed By: #### A DDONUAPLUS #### [place] [address] [place] pH (U) 5.0 [pH] Normal 5.0-9.0 [facility] Comment on above: Order Comment: Name Collection Type:: Clean-Voided Midstream Performed By: #### A DDONUAPLUS #### [place] [address] [place] Protein,Urine Negative Normal Negative [facility] Comment on above: Order Comment: Name Collection Type:: Clean-Voided Midstream Performed By: #### A DDONUAPLUS #### [place] [address] [place] RBC,Urine 1-2 Normal 0-4 [facility] Comment on above: Order Comment: Name Collection Type:: Clean-Voided Midstream Performed By: #### A DDONUAPLUS #### [place] [address] [place] Specificy [place],Urine 1.017 Normal 1.001-1.03 0 [facility] Comment on above: Order Comment: Name Collection Type:: Clean-Voided Midstream Performed By: #### A DDONUAPLUS #### [place] [address] [place] Squamous Epithelial Cell,Urine 0-1 Normal 0-2 [facility] Comment on above: Order Comment: Name Collection Type:: Clean-Voided Midstream Performed By: #### A DDONUAPLUS #### [place] [address] [place] Urobilinogen,Urine Normal Normal Normal [facility] Comment on above: Order Comment: Name Collection Type:: Clean-Voided Midstream Performed By: #### A DDONUAPLUS #### [facility] [address] [place] [address] [place] WBC,Urine 3-4 Normal 0-4 [facility] Comment on above: Order Comment: Name Collection Type:: Clean-Voided Midstream Performed By: #### A DDONUAPLUS #### [place] [address] [place] ECG 12 lead ECGon 02-12-2023 ECG 12 lead ECG [facility] Main [place] [address] [place] [address] Electrocardiograph Report Signed Patient: Deysi Hernandez MR#: [id number] : 1960 Acct:[id number] Age/Sex: 62 / F ADM Date: 02/12/23 Loc: Room: [address] [place] [address] Type: ADM IN Attending Dr: Jacques East [...] Signed By Bj Bay DO 02/13 1109 [facility] Gram Stainon 02-12-2023 Microscopic observation Gram stain Nom (Unsp spec) Gram Stain Result Rare Epithelial Cells 1+ White Blood Cells Rare Gram Positive Coccobacilli PERFORMED BY: [place] [address] PATHOLOGIST FRAUD INVESTIGATOR JERAMY CALDWELL M.D. [facility] Comment on above: Performed By: #### A [facility], #### [address] Gram stain for investigation of transfusion reactionOrdered By: Jacques East on 02-12-2023 Microscopic observation Gram stain Nom (Unsp spec) [facility] Microscopic observation Gram stain Nom (Unsp spec) 2 Days [facility] INR in Platelet poor plasma by Coagulation assayOrdered By: Sally Valle on 02-12-2023 INR Coag (PPP) [Relative time] 0.9 {INR} [facility] Comment on above: INR Therapeutic [...] on 02-12-2023 Ketones (U) [Mass/Vol] Negative Negative [facility] - UrinalysisOrder ed By: Jacques East on 02-12-2023 Hyaline casts LM Ql (Urine sed) 0-8 [LPF] 0-8 [facility] Magnesiumon 02-12-2023 Magnesium [Mass/Vol] 1.8 mg/dL Low 1.9-2.7 [facility] Comment on above: Result Comment: PERF ORMED BY: [facility] [address] [facility] [place] [address] PATHOLOGIST FRAUD INVESTIGATOR JERAMY CALDWELL M.D. Performed By: #### M G ####[facility] [address] [place] [id number] [facility] Nitrite Test strip Ql (U)Ord ered By: Jacques East on 02-12-2023 Nitrite Ql (U) Negative Negative [facility] Protein Auto test strip (U) [Mass/Vol]Ordered By: Jacques East on 02-12-2023 Protein (U) [Mass/Vol] Negative Negative [facility] Prothrombin time (PT)Ordered By: Sally Valle on 02-12-2023 PT Coag (PPP) [Time] 10.9 s 9.0-12.9 [facility] Comment on above: A hematocrit value g reater than 55% may lead to inaccurate results in coagulation testing. Patients having hematocrit values >55% require a special collection tube for coagulation studies. Please contact the laboratory at [phone] for redraw instructions. Redraw Potassiumon 3 Potassium [Moles/Vol] 4.4 mmol/L Normal 3.5-5.1 [facility] Comment on above: Order Comment: 1ST S pecimen hemolyzed, redraw requested Result Comment: PERF ORMED BY: [place] [address] [place] [id number] PATHOLOGIST FRAUD INVESTIGATOR JERAMY CALDWELL M.D. Performed By: #### R EDRAW K ####[place] [id number] [facility] Specific gravity Auto test s trip (U) [Rel density]Ordered By: [employer] on 02-12-2023 Specific gravity (U) [Rel density] 1.017 1.001-1.03 0 [facility] Squamous epithelial cells de tection in urine sediment by light microscopyOrdered By: Axialpascual TalbotSwipeClock on 02-12-2023 Epithelial cells.squamous LM Ql (Urine sed) 0-1 [HPF] 0-2 [facility] Troponin I High Sensitivityo n 02-12-2023 Troponin I High Sensitivity 43.8 pg/mL High 0.0-15.0 [facility] Comment on above: Result Comment: PERF ORMED BY: [facility] [address] [place] [address] PATHOLOGIST FRAUD INVESTIGATOR JERAMY CALDWELL M.D. Performed By: #### H S TROP ####[place] [id number] [facility] Troponin I High Sensitivity 70.6 pg/mL Off scale high 0.0-15.0 [facility] Comment on above: Result Comment: Crit ical Result : Called to and read back by: BRANDON LEVINE at: 02/12/2023 08:07:31 by:LUCIANO PERFORMED BY: [facility] [address] [place] [id number] PATHOLOGIST FRAUD INVESTIGATOR JERAMY CALDWELL M.D. Performed By: #### H S TROP ####[place] [id number] [facility] Troponin I.cardiac [Mass/vol ume] in Serum or Plasma by Detection limit <= 0.01 ng/Ordered By: Sally Valle on 02-12-2023 Troponin I.cardiac DL <= 0.01 ng/mL [Mass/Vol] 43.8 pg/mL 0.0-15.0 [facility] Urine bacteria detection by automated methodOrdered By: Jacques East on 02-12-2023 Bacteria Auto Ql (U) None seen None Seen [facility] Urine clarity by refractomet ry automatedOrdered By: Jacques East on 02-12-2023 Clarity Refractometry automated (U) Clear Clear [facility] Urine glucose measurement by automated test strip (mass/volume)Ordered By: Jacques East on 02-12-2023 Glucose Auto test strip (U) [Mass/Vol] Normal mg/dL Normal [facility] Urine hemoglobin detection b y automated test stripOrdered By: Jacques East on 02-12-2023 Hemoglobin Auto test strip Ql (U) Negative Negative [facility] Urine leukocyte esterase det ection by automated test stripOrdered By: Jacques East on 02-12-2023 Leukocyte esterase Auto test strip Ql (U) 1+ Negative [facility] Urobilinogen Auto test strip (U) [Mass/Vol]Ordered By: Jacques East on 02-12-2023 Urobilinogen (U) [Mass/Vol] Normal mg/dL Normal [facility] XR chest 1V portableon 02-12 XR chest 1V portable [facility] [place] [address] XRay Report Signed Patient: Deysi Hernandez MR#: [id number] : 1960 Acct:[id number] Age/Sex: 62 / F ADM Date: 02/12/23 Loc: Room: [address] [place] [address] Type: ADM IN Attending Dr: Jacques East [...] Bj Ma M.D.02/12/2023 12:40 PM Dictation Location: [place] [address] Transcribed By: [facility] 02/12/23 1240 Dictated By: Bj Ma DO 02/12/23 1237 Signed By: 02/12/23 1240 Normal [facility] pH Auto test strip (U)Ordere d By: Jacques East on 02-12-2023 pH (U) 5.0 [pH] 5.0-9.0 [facility] Ambulatory Visit Summaryon 1 04-13-2022 Ambulatory Visit Summary DEYSI HERNANDEZ :1960 Visit Date:02/10/2023 Ambulatory Visit Instructions Your Diagnosis Dysuria Tests Performed Urnls Dip Stick Auto w/o Microscopy POC 82482 Your Care Team Attending Physician - Alex BRIDGES, Jaxson W. Primary Care Physician - DONNA FINNEY, [facility] This Is Your Medications List Misc [...] Urnls Dip Stick Auto w/o Microscopy POC 20872 (02/10/2023) Bilirubin Urine Dipstick - Negative Blood Urine Dipstick - 2+ Moderate Glucose Urine Dipstick - Negative Ketones Urine Dipstick - Negative Leukocytes Urine Dipstick - 1+ Small Nitrite Urine Dipstick - Positive Protein Urine Dipstick - Negative Specific [place] Urine Dipstick - 1.015 Urine Appearance Urine [...] for choosing us for your care. Normal [facility] Auto Diffon 02-10-2023 Basophils/100 WBC (Bld) 1.3 % Normal 0.0-2.0 [facility] Comment on above: Order Comment: Order Added by Discern Expert. Performed By: #### 2 019752, 97218516, 03893079, 6013737, 0169324, 67668016, 06226803 ####[facility] [address] [place] [address] Basophils/Leukocytes Auto (Bld) [Pure # fraction] 0.1 E9/L Normal 0.0-0.2 [facility] Comment on above: Order Comment: Order Added by Discern Expert. Performed By: #### 2 460943, 00164482, 20505659, 4201193, 2646996, 47115486, 49660924 ####[address] [address] Eosinophils/100 WBC (Bld) 1.5 % Normal 0.0-8.0 [facility] Comment on above: Order Comment: Order Added by Discern Expert. Performed By: #### 2 829570, 92471207, 77009339, 8040795, 0738863, 54446432, 12917410 ####[place] [address] [place] [address] Eosinophils/Leukocytes Auto (Bld) [Pure # fraction] 0.1 E9/L Normal 0.0-0.5 [facility] Comment on above: Order Comment: Order Added by Discern Expert. Performed By: #### 2 124717, 55156343, 07898636, 9085558, 7608436, 74390803, 59697430 ####[address] [address] Lymphocytes/100 WBC (Bld) 16.8 % Normal 14.0-50.0 [facility] Comment on above: Order Comment: Order Added by Discern Expert. Performed By: #### 2 086802, 12554278, 52166841, 0378744, 9588202, 97544752, 41540951 ####[address] [address] Lymphocytes/Leukocytes Auto (Bld) [Pure # fraction] 1.6 E9/L Normal 1.0-4.0 [facility] Comment on above: Order Comment: Order Added by Discern Expert. Performed By: #### 2 305169, 11431097, 34483665, 2179044, 0576576, 36269956, 75151210 ####[address] [address] Monocytes/100 WBC (Bld) 9.8 % Normal 4.0-14.0 [facility] Comment on above: Order Comment: Order Added by Discern Expert. Performed By: #### 2 551817, 79692594, 95743959, 3392267, 5061943, 08452634, 00478210 ####[place] [address] [place] [address] Monocytes/Leukocytes Auto (Bld) [Pure # fraction] 0.9 E9/L Normal 0.2-1.0 [facility] Comment on above: Order Comment: Order Added by Discern Expert. Performed By: #### 2 104534, 59012376, 69549856, 4823933, 6055955, 90599504, 74898723 ####[place] [address] [place] [address] Neutrophils/100 WBC (Bld) 70.6 % Normal 36.0-75.0 [facility] Comment on above: Order Comment: Order Added by Discern Expert. Performed By: #### 2 011381, 27318378, 83335533, 4006649, 1633299, 20622608, 80291340 ####[place] [address] [place] [address] Neutrophils/Leukocytes Auto (Bld) [Pure # fraction] 6.7 E9/L Normal 2.0-7.5 [facility] Comment on above: Order Comment: Order Added by Discern Expert. Performed By: #### 2 184223, 80590800, 38812273, 4882592, 4811513, 86453009, 03266069 ####[place] [address] [place] [address] BMPon 02-10-2023 Anion gap [Moles/Vol] 14 mmol/L Normal 6-16 [facility] Comment on above: Performed By: #### 2 738227, 14974142, 05069233, 8439070, 0401660, 74056454, 90634350 ####[place] [address] [place] [address] BUN/Creat Ratio 12 No Units Normal 10-20 [facility] Comment on above: Performed By: #### 2 838629, 03018702, 56070259, 0152279, 8998871, 36792403, 01016235 ####[facility] [address] [place] [address] Calcium [Mass/Vol] 9.7 mg/dL Normal 8.9-11.1 [facility] Comment on above: Performed By: #### 2 157535, 28883440, 20762663, 8037735, 1813044, 90374959, 82288227 ####[facility] [address] [place] [address] Chloride [Moles/Vol] 107 mmol/L Normal 101-111 [facility] Comment on above: Performed By: #### 2 330371, 61030543, 61603051, 9627304, 2672170, 69592112, 60549153 ####[facility] [address] [place] [address] CO2 [Moles/Vol] 25 mmol/L Normal 21-31 [facility] Comment on above: Performed By: #### 2 186248, 47466602, 16125454, 6940962, 9135923, 14760200, 72265151 ####[facility] [address] [place] [address] Creatinine [Mass/Vol] 1.4 mg/dL High 0.5-1.3 [facility] Comment on above: Performed By: #### 2 301159, 55738247, 44086551, 1790811, 8712671, 71297381, 49258528 ####[facility] [address] [place] [address] Glucose [Mass/Vol] 84 mg/dL Normal 55-199 [facility] Comment on above: Performed By: #### 2 193345, 73085236, 07485847, 3838650, 1113518, 41965087, 36395279 ####[facility] [address] [place] [address] Potassium [Moles/Vol] 4.8 mmol/L Normal 3.5-5.3 [facility] Comment on above: Performed By: #### 2 218824, 04877149, 03348767, 9444249, 5984461, 03611880, 12319056 ####[facility] [address] [place] [address] Sodium [Moles/Vol] 141 mmol/L Normal 135-145 [facility] Comment on above: Performed By: #### 2 057076, 60162668, 68794345, 9431813, 1117023, 28646037, 43967353 ####[facility] [address] [place] [address] Urea nitrogen [Mass/Vol] 17 mg/dL Normal 5-21 [facility] Comment on above: Performed By: #### 2 821867, 90827879, 73259057, 3537084, 7818137, 18405013, 08049895 ####[facility] [address] [place] [address] BNPon 02-10-2023 Natriuretic peptide B (Bld) [Mass/Vol] 39 pg/mL Normal 5-80 [facility] Comment on above: Performed By: #### 2 511185, 47680678, 82284376, 4857578, 5490928, 25950751, 93505734 ####[facility] [address] [place] [address] CBC w/ Auto Diffon Erythrocyte distribution width (RBC) [Ratio] 14.4 % High 10.9-14.2 [facility] Comment on above: Performed By: #### 2 916834, 07994807, 71186730, 5650245, 1846795, 33268097, 80112614 ####[facility] [address] [place] [address] Hematocrit (Bld) [Volume fraction] 50.0 % High 34.0-46.0 [facility] Comment on above: Performed By: #### 2 120280, 19923469, 27738774, 3048010, 6869730, 35012124, 23542493 ####[facility] [address] [place] [address] Hemoglobin (Bld) [Mass/Vol] 16.8 g/dL High 12.0-16.0 [facility] Comment on above: Performed By: #### 2 028505, 08637837, 64958547, 2595942, 6958506, 67778111, 20187120 ####[facility] [address] [place], [place] [address] MCH (RBC) [Entitic mass] 30.1 pg Normal 27.0-34.0 [facility] Comment on above: Performed By: #### 2 797880, 34458190, 07725541, 9441672, 3046543, 71067891, 86299324 ####[address] [address] MCHC (RBC) [Mass/Vol] 33.7 g/dL Normal 31.4-36.0 [facility] Comment on above: Performed By: #### 2 403808, 81213386, 48778752, 3187795, 6276263, 23982095, 67988084 ####[address] [address] MCV (RBC) [Entitic vol] 89.4 fL Normal 80.0-100.0 [facility] Comment on above: Performed By: #### 2 724049, 63896628, 05233258, 5034255, 6101334, 54474306, 72541962 ####[address] [address] Platelet mean volume (Bld) [Entitic vol] 8.0 fL Normal 6.4-10.8 [facility] Comment on above: Performed By: #### 2 634007, 34972599, 05711487, 8334058, 4481037, 45701886, 28609476 ####[address] [address] Platelets (Bld) [#/Vol] 202.0 E9/L Normal 150.0-500. 0 [facility] Comment on above: Performed By: #### 2 320336, 55057568, 45237841, 4105607, 8074413, 48466857, 78213603 ####[facility] [address] [place] [address] RBC (Bld) [#/Vol] 5.6 E12/L Normal 4.3-5.9 [facility] Comment on above: Performed By: #### 2 742007, 10153530, 50079486, 2075061, 6255800, 22930833, 64815156 ####[facility] [address] [place] [address] WBC corrected for nucl RBC Auto (Bld) [#/Vol] 9.4 E9/L Normal 4.0-11.0 [facility] Comment on above: Performed By: #### 2 624393, 19104829, 87488605, 1931584, 5739024, 06443549, 62478005 ####[facility] [address] [place] [address] CHEMISTRYOrdered By: SYSTEM SYSTEM on 02-10-2023 Anion [...] Chem Comment on above: Interpretive Data: T hector 95% CI (Confidence Interval) PPV (Positive Predictive Value) for myocardial infarction in females is 38 pg/mL, in males 51 pg/mL. The results should be used in conjunction with clinical conditions of myocardial infarction. (Access High Sensitivity Troponin I Instructions For Use, Kavita Pisgah, September 2017) Urea nitrogen [Mass/Vol] 17 mg/dL Normal 5 - 21 mg/dL [facility] Urea nitrogen/Creatinine [Mass ratio] 12 mg/mg Normal 10 - 20 [facility] CHEMISTRYOrdered By: Estela Reyna on 02-10-2023 Natriuretic peptide B (Bld) [Mass/Vol] 39 pg/mL Normal 5 - 80 pg/mL [facility] COAGULATIONOrdered By: Veronica Guidry on 02-10-2023 aPTT Coag (PPP) [Time] 29.2 s Normal 25.1 - 36.5 second(s) [facility] Auto Coag Comment on above: Interpretive Data: [...] the same coagulation reagent and instrumentation as [facility]. Currently there are no coagulation studies available worldwide for children to 14 days, and no normal ranges. Heparin therapeutic range (represented by Anti-Factor Xa activity of 0.2 - 0.4 U/mL) corresponds to PTT of 56.6 - 109.0 sec. INR Coag (PPP) [Relative time] 1.0 {INR} Invalid Interpretation Code [facility] Auto Coag Comment on above: Interpretive Data: I NR results are specifically intended to assess patients stabilized on long-term Anticoagulation therapy suggested INR s Less Intensive Anticoagulation 2.0 3.0 Conventional Range 3.0 4.5 PT Coag (PPP) [Time] 11.6 s Normal 9.4 - 1 2.5 second(s) [facility] Auto Coag Comment on above: Interpretive Data: [...] the same coagulation reagent and instrumentation as [facility]. Currently there are no coagulation studies available worldwide for children to 14 days, and no normal ranges. Consent for Treatmenton 01-19 Consent for Treatment [id number] Normal [facility] Discharge Instructionson Discharge Instructions [id number] F Normal [facility] ED Clinical Summaryon 2022 ED Clinical Summary (Inserted Image. Neelam ble to display) [place] [id number] ED Clinical Summary Person Information Name: DEYSI HERNANDEZ Trav/[facility] Age: 62 Years : 1960 Sex: Female Language: Monegasque PCP: SHAIKH THOMPSON MD Marital Status: Visit [...] 02/10/2023 17:12:09 02/10/2023 17:12:09 ADDRESS: [address] [facility] [id number] PHYS DOC NOTES: MEDICAL INFORMATION: Prescriptions Given: New Medications [id number], [address], [place] [phone], [phone] cefdinir (cefdinir 300 mg Cap) 1 Capsules [...] Tablets By Mouth every day. Misc Prescription ([facility] ASPIRIN EC 81 MG TABLET) 0. omeprazole (omeprazole 40 mg Cap-DR) 1 Capsules By Mouth every day. Refills: 2. PATIENT EDUCATION INFORMATION: Instructions: Urinary Tract Infection, Adult, Jzhq-im-Fkwa; Acute Bronchitis, Adult Follow up: With: Address: When: SHAIKH DONNA [address], [place] [id number] [employer] (1) In 3 days 02/13/2023 Comments: Follow-up with your primary care provider in 3 to 5 days. If symptoms worsen, do not improve, or new symptoms arise please report back to emergency department for further evaluation. DIAGNOSIS: Bronchitis; UTI (urinary tract infection) Normal [facility] ED Note-Nursingon 02-10-2023 ED Note-Nursing EKG late due to vanessa ent being in the bathroom when called. Normal [facility] ED Note-Physicianon 02-11-20 ED Note-Physician [...] (N39.0: Urin (more content not included)... Normal [facility] Comment on above: Result Comment: [...] these instructions at home: Medicines ? Take qmjn-qag-pjlxtsk and prescription medicines only as told by [...] provider. Document Revised: 09/16/2020 Document Reviewed: 09/16/2020 [employer] Patient Education ? 2022 [employer]. Pulmonary Medicine Acute Bronchitis, Adult Acute [...] The f (more content not included)... Normal [facility] ED Patient Summaryon 023 ED Patient Summary (Inserted Image. Neelam ble to display) [address] [address] Patient Discharge Instructions Person Information Name: DEYSI HERNANDEZ Age: 62 Years Arrival Date: 02/10/2023 14:37:39 Discharge Diagnosis: Bronchitis; UTI (urinary tract infection) Primary Care Physician: SHAIKH THOMPSON MD Provider Information Primary Provider: Gabby De Oliveira M.D. Advanced Creative Recruiter:None The exam and treatment you received in the Emergency Department were for an urgent problem and are not intended as complete care. It is important that you follow up with a doctor, nurse practitioner, or physician?s pizza hut assistant for ongoing care. If your symptoms [...] With: Address: When: SHAIKH DONNA [address], [place] [phone] Business (1) In 3 days 02/13/2023 Comments: [...] Patient Education Materials: Urinary Tract Infection, Adult, Cpvj-wt-Rnkb; Acute Bronchitis, Adult A MESSAGE TO ALL PATIENTS REGARDING OPIOIDS PRESCRIPTION OPIOIDS: WHAT YOU NEED TO KNOW Prescription opioids can be used to help relieve aobwfnud-pn-enxhae pain and are often prescribed following a [...] Visit www.cdc.gov/ (more content not included)... Normal [facility] Family Medicine Office/Clini c Noteon [...] send her to the emergency department at [facility]. She was offered EMS transfer [...] hurt by (more content not included)... Normal [facility] Comment on above: Result Comment: [...] 14.4 % High 10.9 - 14.2 % FT HemeAutoSS Hematocrit (Bld) [Volume fraction] 50.0 % High 34.0 - 46.0 % FT HemeAutoSS Hemoglobin (Bld) [Mass/Vol] 16.8 g/dL High 12.0 - 16.0 gm/dL FT HemeAutoSS MCH (RBC) [Entitic mass] 30.1 pg Normal 27.0 - 34.0 pg [facility] HemeAutoSS MCHC (RBC) [Mass/Vol] 33.7 g/dL Normal [...] 9.4 E9/L Normal 4.0 - 11.0 E9/L [facility] HemeAutoSS Influenza A&B Agon 3 Influenzae A Ag Negative Normal Negative [facility] Comment on above: Performed By: #### 1 [id number], [id number] ####[facility] [address] [place] [address] Influenzae B Ag Negative Normal Negative [facility] Comment on above: Result Comment: Test sensitivity and specificity vary for age group, specimen type, antigen types, and prevalence of disease. Test results must be evaluated in conjunction with other clinical data available to the physician. Individuals who received nasally administered Influenza A vaccine may have positive test results up to 3 days after vaccination. Performed By: #### 1 [id number], [id number] ####[facility] [address] [place] [address] MICRO OTHER TESTSOrdered By: Trudy Guidry on 02-10-2023 Influenzae A Ag Negative (02/10/23 3:25 PM) Normal Negative [facility] Influenzae B Ag Negative 1 (02/10/23 3:25 PM) Normal Negative [facility] Comment on above: Interpretive Data: [...] NEG Ctl Pass (02/10/23 3:25 PM) Normal [facility] Rapid COV Int POS Ctl Pass (02/10/23 3:25 PM) Normal [facility] SARS-CoV+SARS-CoV-2 (COVID-19) Ag IA.rapid Ql (Resp) Not Detected 6 (02/10/23 3:25 PM) Normal Not Detected [facility] Comment on above: Interpretive Data: T he Adpoints Veritor System for Rapid Detection of SARS-CoV-2 [...] Coag (PPP) [Time] 29.2 second(s) Normal 25.1-36.5 [facility] Comment on above: Result Comment: [...] the same coagulation reagent and instrumentation as [facility]. Currently there are no coagulation studies available worldwide for children to 14 days, and no normal ranges. Heparin therapeutic range (represented by Anti-Factor Xa activity of 0.2 - 0.4 U/mL) corresponds to PTT of 56.6 - 109.0 sec. Performed By: #### 2 [id number], [id number], [id number], [id number], [id number], [id number], [id number] ####[facility] [place] [address] INR Coag (PPP) [Relative time] 1.0 {INR} Invalid Interpretation Code [facility] Comment on above: Result Comment: INR results are specifically intended to assess patients stabilized on long-term Anticoagulation therapy suggested INR?s ?Less Intensive Anticoagulation? 2.0 ? 3.0 Conventional Range 3.0 ? 4.5 Performed By: #### 2 [id number], [id number], [id number], 1371719, 9338272, [id number], [id number] ####[facility] [address] [place] [address] PT Coag (PPP) [Time] 11.6 second(s) Normal 9.4-12.5 [facility] Comment on above: Result Comment: [...] the same coagulation reagent and instrumentation as [facility]. Currently there are no coagulation studies available worldwide for children to 14 days, and no normal ranges. Performed By: #### 2 [id number], [id number], [id number], 0861659, 7116999, [id number], [id number] ####[address] [place] [address] Rapid COVID Antigen ([facility])on 02-10-2023 Rapid COV Int NEG Ctl Pass Normal [facility] Comment on above: Performed By: #### 1 [id number], [id number] ####[address] [place] [address] Rapid COV Int POS Ctl Pass Normal [facility] Comment on above: Performed By: #### 1 [id number], [id number] ####[address] [place] [address] SARS-CoV+SARS-CoV-2 (COVID-19) Ag IA.rapid Ql (Resp) Not detected Normal Not Detected [facility] Comment on above: Result Comment: The Adpoints Veritor? System for Rapid Detection of SARS-CoV-2 [...] or revoked sooner. Performed By: #### 1 [id number], [id number] ####[facility] [address] [place] [address] Troponin 0 Hr.on 02-10-2023 Troponin 5.80 pg/mL Low 10.10-27.1 0 [facility] Comment on above: Result Comment: The 95% CI (Confidence Interval) PPV (Positive Predictive Value) for myocardial infarction in females is 38 pg/mL, in males 51 pg/mL. The results should be used in conjunction with clinical conditions of myocardial infarction. (Access High Sensitivity Troponin I Instructions For Use, Kavita Ton, September 2017) Performed By: #### 2 [id number], [id number], [id number], 8689185, 8198414, [id number], [id number] ####[facility] [address] [place] [address] XR Chest Single Viewon 02-10 XR Chest [...] mGy = na DAP = na Normal [facility] eGFRon 02-10-2023 eGFR 43 mL/min/1.73 m2 Low >=59 [facility] Comment on above: Order Comment: Order added by Discern Expert. Performed By: #### 2 [id number], [id number], [id number], 0905382, 5226866, [id number], [id number] ####[facility] [address] [place] [address] Lizbet 10-26-2022 VERONICAN Telephone ([facility]) ----- DEYSI HERNANDEZ ([id number]) 1960 F Date Time Provider Department 10/26/[address] [facility] During your visit today, we recorded [...] question. I will also send her a Fit Steps message encouraging communicate via Fit Steps if needed. Debra Fishman MD Staff, Department of Kidney Medicine 10/26/22 5:49 PM Allergies As of Date: 10/26/2022 Noted Allergy Reaction CODEINE 09/07/2014 7 - Swelling Date Reviewed: 10/09/2022 Reviewed by: Rosie Harris DO - Fully Assessed Reason for Visit: Patient Question [5347] Prescriptions as of 10/26/2022 - lisinopril (ZESTRIL) [...] Encounter Status:Closed by DEBRA FISHMAN on 10/26/22 Normal [facility] CNPNon 10-25-2022 CNPN Telephone (CALIMMCheo) ----- DEYSI HERNANDEZ ([id number]) 1960 F Date Time Provider Department 10/25/22 DEBRA FISHMAN During your visit today, we recorded the following information about you: Linn Solis Ma 10/25/2022 12:36 PM Signed Patient called the office very upset because today at here appointment with Kidney Medicine she was seen by another provider and it wasn't her kidney doctor. She would like Dr. Fishman call her back at [phone] because she has lots of questions that [...] Fully Assessed Reason for Visit: Patient Question [6723] Prescriptions as of 10/25/2022 - lisinopril (ZESTRIL) [...] Status:Closed by LINN SOLIS MA on 10/25/22 [facility] Urineon 10-18-2022 Bacteria identified Cx Nom (U) [...] Locations R1: This test was performed at: [facility], [address] [place] [address], [id number] , , Normal [facility] Comment on above: Performed By: #### 2 [id number] ####[facility] [address] [place] [address] Family Medicine Office/Clini c Noteon 10-15-2022 Family [...] with voice recognition software. Occasional wrong-word or ?pzvsb-f-dfxn? substitutions may have occurred due to the inherent limitations of voice recognition software. 62-year-old female with history of stage III chronic kidney disease, hyperlipidemia, hypertension, current smoker presents today to [facility] with chief complaint of possible urinary tract infection. She does note that she has been seen urology in the past in regards to stress incontinence. She also notes that she sees nephrology out of [facility]. Patient states she sees them every 6 months for history of her chronic kidney disease in which she states that her right kidney does a lot of work in her left kidney does not function. Patient states a history of urosepsis several years ago and she does not really recall 5 of her days of hospitalization or transfer from [facility] to [facility]. Patient states that on of last [...] day(s), # 21 cap(s), Refills(s) 0, Pharmacy: [id number], 163, cm, 10/15/22 17:40:00 EDT, Height/Length [...] day(s), # 21 cap(s), Refills(s) 0, Pharmacy: [id number], 163, cm, 10/15/22 17:40:00 EDT, Height/Length Dosing, 72.3, kg, 10/15/22 17:40:00 EDT, Weight Dosing 3. Smoker (F17.200: Nicotine dependence, unspecified (more content not included)... Normal [facility] Comment on above: Result Comment: [...] numbers. This can be done either in [place] ([place] or metric measurements. Note that charts and online BMI calculators are available to help you find your BMI quickly and easily without having to do these calculations yourself. To calculate your BMI in [place] ([place] measurements: 1. Measure your weight in [...] for Disease Control and Prevention: www.cdc.gov ? [place] Heart Association: www.heart.org ? National Heart, Lung, and Blood [place]: www.nhlbi.nih.gov Summary ? Body mass index (BMI) is a number that is calculated from a person's weight and height. ? BMI may help estimate how much of a person's weight is composed of fat. BMI can help identify those who may be at higher risk for certain medical problems. ? BMI can be measured using [place]que measurements or metric measurements. ? BMI charts are used to identify whether you are underweight, normal weight, overweight, or obese. This information is not intended to replace advice given to you by your health care provider. Make sure you discuss any questions you have with your health care provider. Document Revised: 10/28/2019 Document Reviewed: 09/04/2019 CUPS Patient Education ? 2022 [employer]. Obstetrics and Gynecology Urinary Tract Infection, [...] condition if: (more content not included)... Normal [facility] 10-11-2022 CNP Telephone (WIQ) ----- DEYSI HERNANDEZ ([id number]) 1960 F Date Time Provider Department 10/11/22 CATHIE MOORE During your visit today, we recorded the following information about you: [facility]/2022 12:57 PM Signed Smoking Cessation Navigation Outcome of contact: Left Message Comments: A voicemail has been left for this patient regarding Tobacco Cessation support options. If this patient has any further questions they can email us at or call us at [phone]. [employer] Audience Coordinator/Smoking Cessation Navigator: [facility] Allergies As of Date: 10/11/2022 Noted Allergy [...] Status:Closed by CATHIE MOORE on 10/11/22 Normal [facility] CNOVon 10-09-2022 CNOV Office Visit (ELPIDIO ) ----- DEYSI HERNANDEZ ([id number]) 1960 F Date Time Provider Department 10/09/22 2:00 PM GURMEET OJEDA During your visit today, we recorded the following information about you: Temperature Pulse Blood pressure Weight 97.5 degrees 60/minute 91/60 71.3 kg Height 1.575 m Rosie Harris DO 10/09/2022 5:08 PM Signed [facility] NEPHROLOGY AND HYPERTENSION [facility] SERVICE DATE: 10/09/2022 [...] CKD, ESRD, hearing loss. She is a fpc smoker, currently 0.75 pack per day but [...] (more content not included)... Normal [facility] URINALYSIS, REFLEX MICROSCOP ICon 10-09-2022 Bacteria LM.HPF (Urine sed) [#/Area] Few Abnormal None Seen [facility] Comment on above: Order Comment: Speci men Type: URINE SPECIMEN Ordering Facility: [facility] Address: [address] [place] [address] Performed By: #### L [id number] #### [facility] CLIA [id number] [address] [place] [address] [place] Bilirubin Ql (U) Negative Normal Negative [facility] Comment on above: Order Comment: Speci men Type: URINE SPECIMEN Ordering Facility: [facility] Address: [address] [place] [address] Performed By: #### L [id number] #### [facility] CLIA [id number] [address] [place] [address] [place] Clarity (Unsp spec) Cloudy Abnormal Clear [facility] Comment on above: Order Comment: Speci men Type: URINE SPECIMEN Ordering Facility: [facility] Address: [address] [place], [place] [address] Performed By: #### L [id number] #### [facility] CLIA [id number] [address] [place] [address] [place] Color (U) Light Yellow Normal Yellow [facility] Comment on above: Order Comment: Speci men Type: URINE SPECIMEN Ordering Facility: [facility] Address: [address] [place] [address] Performed By: #### L [id number] #### [facility] CLIA [id number] [address] [place] [address] [place] Epithelial cells LM.HPF (Urine sed) [#/Area] Few Normal [facility] Comment on above: Order Comment: Speci men Type: URINE SPECIMEN Ordering Facility: [facility] Address: [address] [place] [address] Performed By: #### L [id number] #### [facility] CLIA [id number] [address] [place] [address] [place] Glucose Test strip (U) [Mass/Vol] Negative Normal Trace, Negative [facility] Comment on above: Order Comment: Speci men Type: URINE SPECIMEN Ordering Facility: [facility] Address: [address] Performed By: #### L [id number] #### [facility] CLIA [id number] [address] [place] [address] [place] Hemoglobin Ql (U) Trace Normal Negative, Trace [facility] Comment on above: Order Comment: Speci men Type: URINE SPECIMEN Ordering Facility: [facility] Address: [address] Performed By: #### L [id number] #### [facility] CLIA [id number] [address] [place] [address] [place] Ketones Ql (U) Negative Normal Negative, Trace [facility] Comment on above: Order Comment: Speci men Type: URINE SPECIMEN Ordering Facility: [facility] Address: [address] Performed By: #### L [id number] #### [facility] CLIA [id number] [address] [place] [address] [place] Leukocyte esterase Test strip Ql (U) 250 Bonnie/uL Abnormal Negative, 25 Bonnie/uL [facility] Comment on above: Order Comment: Speci men Type: URINE SPECIMEN Ordering Facility: [facility] Address: [address] Performed By: #### L [id number] #### [facility] CLIA [id number] [address] [place] [address] [place] Nitrite Ql (U) 2+ Abnormal Negative [facility] Comment on above: Order Comment: Speci men Type: URINE SPECIMEN Ordering Facility: [facility] Address: [address] Performed By: #### L [id number] #### [facility] CLIA [id number] [address] [place] pH (U) 5.5 [pH] Normal 5.0-8.0 [facility] Comment on above: Order Comment: Speci men Type: URINE SPECIMEN Ordering Facility: [facility] Address: [address] [place] [address] Performed By: #### L [id number] #### [facility] CLIA [id number] [address] [place] [address] [place] Protein (U) [Mass/Vol] Negative Normal Trace , Negative [facility] Comment on above: Order Comment: Speci men Type: URINE SPECIMEN Ordering Facility: [facility] Address: [address] [place], [place] [address] Performed By: #### L [id number] #### [facility] CLIA [id number] [address] [place] [address] [place] RBC LM.HPF (Urine sed) [#/Area] 0-3 /HPF Normal 0-3 /HPF [facility] Comment on above: Order Comment: Speci men Type: URINE SPECIMEN Ordering Facility: [facility] Address: [address] [place] [address] Performed By: #### L [id number] #### [facility] CLIA [id number] [address] [place] [address] [place] Specific gravity (U) [Rel density] 1.015 Normal 1.005-1.03 0 [facility] Comment on above: Order Comment: Speci men Type: URINE SPECIMEN Ordering Facility: [facility] Address: [address] [place], [place] [address] Performed By: #### L [id number] #### [facility] CLIA [id number] [address] [place] [address] OF [place] Urobilinogen Ql (U) Negative Normal Negative [facility] Comment on above: Order Comment: Speci men Type: URINE SPECIMEN Ordering Facility: [facility] Address: [address] [place], [place] [address] Performed By: #### L [id number] #### [facility] CLIA [id number] [facility] [address] WBC LM.HPF (Urine sed) [#/Area] /[HPF] Abnormal 0-5 /HPF [facility] Comment on above: Order Comment: Speci men Type: URINE SPECIMEN Ordering Facility: [facility] Address: [address] Performed By: #### L [id number] #### [facility] CLIA [id number] [address] Bacteria LM.HPF (Urine sed) [#/Area] Few Abnormal None Seen /HPF [facility] Bilirubin Ql (U) Negative Negative [facility] Clarity (Unsp spec) Cloudy Abnormal Clear [facility] Color (U) Light Yellow Yellow [facility] Epithelial cells LM.HPF (Urine sed) [#/Area] Few [facility] Glucose Test strip (U) [Mass/Vol] Negative Trace, Negative [facility] Hemoglobin Ql (U) Trace Negative, Trace [facility] Ketones Ql (U) Negative Negative, Trace [facility] Leukocyte esterase Test strip Ql (U) 250 Bonnie/uL Abnormal Negative, 25 Bonnie/uL [facility] Nitrite Ql (U) 2+ Abnormal Negative [facility] pH (U) 5.5 [pH] 5.0 - 8.0 [facility] Protein (U) [Mass/Vol] Negative Trace , Negative [facility] RBC LM.HPF (Urine sed) [#/Area] 0-3 /HPF 0-3 /HPF [facility] Specific gravity (U) [Rel density] 1.015 1.005 - 1.030 [facility] Urobilinogen Ql (U) Negative Negative [facility] WBC LM.HPF (Urine sed) [#/Area] /[HPF] Abnormal 0-5 /HPF [facility] 25(OH)D3 [facility] 25-hydroxyvitamin D3 [Mass/Vol] 34.5 ng/mL Normal 31.0-80.0 [facility] Comment on above: Order Comment: Speci men Type: BLOOD SPECIMEN Ordering Facility: [facility] Address: [address] [place] [address] Result Comment: Clas sification of 25 [place] Vitamin D status: Deficiency/Insufficiency: < or = 30 ng/ml. Sufficiency/Optimal Levels: 31-80 ng/mL Toxicity: > 100 ng/mL. Test performed by chemiluminescent immunoassay. Performed By: #### 1 [id number] #### [facility] CLIA [id number] [address] [place] [address] IMMUNOFIXATION SCREEN, SERUM on 08-23-2022 MPA RESULT No M protein is identified. Normal No M protein is identified . [facility] Comment on above: Order Comment: Speci men Type: BLOOD SPECIMEN Ordering Facility: [facility] Address: [address] [place] [address] Performed By: #### I FESC #### [facility] CLIA [id number] [address] [place] [address] OF [facility] STAFF REVIEW (MPA) Reviewed by Cortes Alfredo MD, Ph.D ([id number]) [facility] Comment on above: Order Comment: Speci men Type: BLOOD SPECIMEN Ordering Facility: [facility] Address: [address] [place] [address] Performed By: #### I FESC #### [facility] CLIA [id number] [address] [place] [address] [place] IMMUNOGLOBULINS GAMon 2022 IgA [Mass/Vol] 218 mg/dL Normal 70-400 [facility] Comment on above: Order Comment: Speci men Type: BLOOD SPECIMEN Ordering Facility: [facility] Address: [address] [place] [address] Performed By: #### S ERIMM #### [facility] CLIA [id number] [address] [place] IgG [Mass/Vol] 775 mg/dL Normal 700-1600 [facility] Comment on above: Order Comment: Speci men Type: BLOOD SPECIMEN Ordering Facility: [facility] Address: [address] [place] [address] Performed By: #### S ERIMM #### [facility] CLIA [id number] [address] [place] [address] [place] IgM [Mass/Vol] 129 mg/dL Normal 40-230 [facility] Comment on above: Order Comment: Speci men Type: BLOOD SPECIMEN Ordering Facility: [facility] Address: [address] [place] [address] Performed By: #### S ERIMM #### [facility] CLIA [id number] [address] [place] [address] [place] KAPPA/THAO,FREE,SERon 2022 Immunoglobulin light chains.kappa.free (S) [Mass/Vol] 26.1 mg/L High 3.3-19.4 [facility] Comment on above: Order Comment: [facility] Ordering Facility: [facility] Address: [address] [place] [address] Result Comment: Rare ly, increased serum free light chains levels may not be detected or accurately quantified due to prozone phenomenon or in high viscosity samples using this immunoturbidimetric assay. Correlation with other laboratory results and clinical findings is recommended. The [place] Free Light Chain was performed using the Binding Site Optilite immunoturbidimetric method. Result obtained with different assay methods or kits cannot be used interchangeably. Performed By: #### K LFRS #### [facility] CLIA [id number] [address] [place] [address] [place] Immunoglobulin light chains.kappa/Immunoglo bulin light chains.lambda (S) [Mass ratio] 1.01 Normal 0.26-1.65 [facility] Comment on above: Order Comment: [facility]: BLOOD SPE[facility]IM[facility] Ordering Facility: [facility] Address: [address] [place] [address] Performed By: #### K LFRS #### [facility] CLIA [id number] [address] [place] [address] [place] Immunoglobulin light chains.lambda.free [Mass/Vol] 25.9 mg/L Normal 5.7-26.3 [facility] Comment on above: Order Comment: Speci men Type: BLOOD SPECIMEN Ordering Facility: [facility] Address: [address] [place] [address] Result Comment: Rare ly, increased serum free [...] interchangeably. Performed By: #### K LFRS #### [facility] CLIA [id number] [address] [place] [address] [place] Renal function 2000 panel 08-23-2022 Albumin [Mass/Vol] 4.3 g/dL Normal 3.9-4.9 [facility] Comment on above: Order Comment: Marioi men Type: BLOOD SPECIMEN Ordering Facility: [facility] Address: [address] [place] [address] Performed By: #### 2 4362-6 #### [facility] CLIA [id number] [address] [place] [address] [place] Anion gap [Moles/Vol] 9 mmol/L Normal 9-18 [facility] Comment on above: Order Comment: Speci men Type: BLOOD SPECIMEN Ordering Facility: [facility] Address: [address] [address] Performed By: #### 2 4362-6 #### [facility] IA [id number] [address] [place] [address] [place] Calcium [Mass/Vol] 9.9 mg/dL Normal 8.5-10.2 [facility] Comment on above: Order Comment: Speci men Type: BLOOD SPECIMEN Ordering Facility: [facility] Address: [address] Performed By: #### 2 4362-6 #### [facility] CLIA [id number] [address] [place] [address] [place] Chloride [Moles/Vol] 105 mmol/L Normal 97-105 [facility] Comment on above: Order Comment: Speci men Type: BLOOD SPECIMEN Ordering Facility: [facility] Address: [address] [address] Performed By: #### 2 4362-6 #### [facility] CLIA [id number] [address] [place] [address] [place] CO2 [Moles/Vol] 25 mmol/L Normal 22-30 [facility] Comment on above: Order Comment: Speci men Type: BLOOD SPECIMEN Ordering Facility: [facility] Address: [address] [address] Performed By: #### 2 4362-6 #### [facility] IA [id number] [address] [place] [address] [place] Creatinine [Mass/Vol] 1.42 mg/dL High 0.58-0.96 [facility] Comment on above: Order Comment: Speci men Type: BLOOD SPECIMEN Ordering Facility: [facility] Address: [address] [place] [address] Performed By: #### 2 4362-6 #### [facility] IA [id number] [address] OF [place] ESTIMATED GLOMERULAR FILTRATION RATE 42 mL/min/1.73m??? Low >=60 [facility] Comment on above: Order Comment: Speci men Type: BLOOD SPECIMEN Ordering Facility: [facility] Address: [address] [place], [place] [address] Result Comment: Jody mated Glomerular Filtration Rate [...] [facility] CLIA [id number] [address] [place] [address] [place] Glucose [Mass/Vol] 70 mg/dL Low 74-99 [facility] Comment on above: Order Comment: Carmen juarez Type: BLOOD SPECIMEN Ordering Facility: [facility] Address: [address] [address] Result Comment: The [place] Diabetes Association (ADA) provides guidance for cutoff [...] Standards of Medical Care in Diabetes 2016, [place] [employer]. Diabetes Care. 2016.39(Suppl 1). Performed By: #### 2 4362-6 #### [facility] CLIA [id number] [address] [place] [address] [place] Phosphate [Mass/Vol] 2.5 mg/dL Low 2.7-4.8 [facility] Comment on above: Order Comment: Carmen juarez Type: BLOOD SPECIMEN Ordering Facility: [facility] Address: [address] [address] Performed By: #### 2 4362-6 #### [facility] CLIA [id number] [address] [place] [address] [place] Potassium [Moles/Vol] 4.8 mmol/L Normal 3.7-5.1 [facility] Comment on above: Order Comment: Carmen juarez Type: BLOOD SPECIMEN Ordering Facility: [facility] Address: [address] [address] Performed By: #### 2 4362-6 #### [facility] CLIA [id number] [address] [place], [place] [address] [place] [address] STATES OF [facility] Sodium [Moles/Vol] 139 mmol/L Normal 136-144 [facility] Comment on above: Order Comment: Speci men Type: BLOOD SPECIMEN Ordering Facility: [facility] Address: [address] [address] Performed By: #### 2 4362-6 #### [facility] CLIA [id number] [address] [place], [place] [id number] [place] [address] STATES OF [facility] Urea nitrogen [Mass/Vol] 18 mg/dL Normal 7-21 [facility] Comment on above: Order Comment: Speci men Type: BLOOD SPECIMEN Ordering Facility: [facility] Address: [address] [address] Performed By: #### 2 4362-6 #### [facility] CLIA [id number] [address] [place] [address] [place] US KIDNEY/BLADDERon 08-24-19 [...] residual bladder volume 4. Right renal cyst Hand Scudder: ERICK Transcribe Date/Time: Aug 28 2022 8:25A Dictated by : ALEAH QUINN MD This examination was interpreted and the report reviewed and electronically signed by: ALEAH QUINN MD on Aug 28 2022 8:28AM EST [id number] [facility] CNOVon 08-09-2022 OV Office Visit (KIDMMN ) ----- DEYSI HERNANDEZ ([id number]) 1960 F Date Time Provider Department 08/09/22 3:00 PM GURMEET OJEDA During your visit today, we recorded the following information about you: Temperature Pulse Blood pressure Weight 97.7 degrees 65/minute 98/64 72.5 kg Height 1.575 m Debra Fishman MD 08/09/2022 7:02 PM Signed [facility] NEPH[facility] HYPERTENSION [facility] SERVICE DATE: 08/09/2022 [...] CKD, ESRD, hearing loss. She is a fpc smoker, currently 0.75 pack per day but [...] (more content not included)... Normal [facility] URINALYSIS, REFLEX MICROSCOP ICon 08-09-2022 Bilirubin Ql (U) Negative Normal Negative Jing bazzi [facility] Comment on above: Order Comment: Speci men Type: URINE SPECIMEN Ordering Facility: [facility] Address: [address] [place] [id number] Performed By: #### L [id number] #### [facility] CLIA [id number] [address] [facility] DESK [id number] [place] [address] [place] Clarity (Unsp spec) Clear Normal Clear [facility] Comment on above: Order Comment: Speci men Type: URINE SPECIMEN Ordering Facility: [facility] Address: [address] [place] [address] Performed By: #### L [id number] #### [facility] CLIA [id number] [address] [place] [address] [place] Color (U) Light Yellow Normal Yellow [facility] Comment on above: Order Comment: Speci men Type: URINE SPECIMEN Ordering Facility: [facility] Address: [address] Performed By: #### L [id number] #### [facility] CLIA [id number] [address] [place] [address] [place] Glucose Test strip (U) [Mass/Vol] Negative Normal Trace, Negative [facility] Comment on above: Order Comment: Speci men Type: URINE SPECIMEN Ordering Facility: [facility] Address: [address] Performed By: #### L [id number] #### [facility] CLIA [id number] [address] [place] [address] [place] Hemoglobin Ql (U) Negative Normal Negative, Trace [facility] Comment on above: Order Comment: Speci men Type: URINE SPECIMEN Ordering Facility: [facility] Address: [address] [place] [address] Performed By: #### L [id number] #### [facility] CLIA [id number] [address] [id number] [place] Ketones Ql (U) Negative Normal Negative, Trace [facility] Comment on above: Order Comment: Speci men Type: URINE SPECIMEN Ordering Facility: [facility] Address: [address] [place] [address] Performed By: #### L [id number] #### [facility] CLIA [id number] [address] [place] [address] [place] Leukocyte esterase Test strip Ql (U) 75 Bonnie/uL Abnormal Negative, 25 Bonnie/uL [facility] Comment on above: Order Comment: Speci men Type: URINE SPECIMEN Ordering Facility: [facility] Address: [address] [place] [address] Performed By: #### L [id number] #### [facility] CLIA [id number] [address] [place] [address] [place] Nitrite Ql (U) Negative Normal Negative [facility] Comment on above: Order Comment: Speci men Type: URINE SPECIMEN Ordering Facility: [facility] Address: [address] [place] [address] Performed By: #### L [id number] #### [facility] CLIA [id number] [address] [place] [address] [place] pH (U) 6.0 [pH] Normal 5.0-8.0 [facility] Comment on above: Order Comment: Speci men Type: URINE SPECIMEN Ordering Facility: [facility] Address: [address] [place], [place] [address] Performed By: #### L [id number] #### [facility] CLIA [id number] [address] [place] [address] [place] Protein (U) [Mass/Vol] Negative Normal Trace , Negative [facility] Comment on above: Order Comment: Speci men Type: URINE SPECIMEN Ordering Facility: [facility] Address: [address] [place], [place] [address] Performed By: #### L [id number] #### [facility] CLIA [id number] [address] [place] [address] [place] Specific gravity (U) [Rel density] 1.009 Normal 1.005-1.03 0 [facility] Comment on above: Order Comment: Speci men Type: URINE SPECIMEN Ordering Facility: [facility] Address: [address] [place], [place] [address] Performed By: #### L [id number] #### [facility] CLIA [id number] [address] OF [place] Urobilinogen Ql (U) Negative Normal Negative [facility] Comment on above: Order Comment: Speci men Type: URINE SPECIMEN Ordering Facility: [facility] Address: [address] [address] Performed By: #### L [id number] #### [facility] CLIA [id number] [address] [place] Bilirubin Ql (U) Negative Negative [facility] Clarity (Unsp spec) Clear Clear [facility] Color (U) Light Yellow Yellow [facility] Glucose Test strip (U) [Mass/Vol] Negative Trace, Negative [facility] Hemoglobin Ql (U) Negative Negative, Trace [facility] Ketones Ql (U) Negative Negative, Trace [facility] Leukocyte esterase Test strip Ql (U) 75 Bonnie/uL Abnormal Negative, 25 Bonnie/uL [facility] Nitrite Ql (U) Negative Negative [facility] pH (U) 6.0 [pH] 5.0 - 8.0 [facility] Protein (U) [Mass/Vol] Negative Trace , Negative [facility] Specific gravity (U) [Rel density] 1.009 1.005 - 1.030 [facility] Urobilinogen Ql (U) Negative Negative [facility] LIPID PROFILEon 06-12-2022 CHOL-HDL RATIO NORM SEE BELOW Normal [facility] Comment on above: Result Comment: 3.3 - 4.4 LOW RISK 4.4 - 7.1 AVERAGE RISK 7.1 - 11.0 MODERATE RISK >11.0 HIGH RISK Performed By: #### L DAWIT BMP #### [facility] [address] [address] [address] Moreno Amato Cholesterol [Mass/Vol] 178 mg/dL Normal <=200 [facility] Comment on above: Performed By: #### L IPID, BMP #### [facility] [address] [address] [address] Moreno Amato Cholesterol in HDL [Mass/Vol] 39 mg/dL Critically low 40-60 [facility] Comment on above: Performed By: #### L IPID, BMP #### [facility] [address] [place] [address] Dr. Moreno Amato Cholesterol in LDL [Mass/Vol] 92.0 mg/dL Normal [facility] Comment on above: Performed By: #### L IPID, BMP #### [facility] [address] [place] [address] Dr. Moreno Amato Cholesterol.total/Chol esterol in HDL [Mass ratio] 4.6 {ratio} Normal [facility] Comment on above: Performed By: #### L IPID, BMP #### [facility] [address] [place] [address] Dr. Moreno Amato HDL NORMAL > or = 60 mg/dl - LO W CARDIOVASCULAR RISK <40 mg/dl - HIGH CARDIOVASCULAR RISK Normal [facility] Comment on above: Performed By: #### L IPID, BMP #### [facility] [address] [place] [address] Dr. Moreno Amato LDL CALC NORMAL SEE BELOW Normal [facility] Comment on above: Result Comment: <100 mg/dl OPTIMAL 100 - 129 mg/dl NEAR OR ABOVE OPTIMAL 130 - 159 mg/dl BORDERLINE HIGH 160 - 189 mg/dl HIGH >190 mg/dl VERY HIGH Performed By: #### L IPID, BMP #### [facility] [address] [place] [address] Dr. Moreno Amato Triglyceride [Mass/Vol] 235 mg/dL Critically high <=150 [facility] Comment on above: Performed By: #### L IPID, BMP #### [facility] [address] [place] [address] Dr. Moreno Amato VLDL CALC 47.0 mg/dL Normal [facility] Comment on above: Performed By: #### L IPID, BMP #### [facility] [address] [place] [address] Dr. Moreno Amato PROF CHEM 8 (BAS METB)on Anion gap [Moles/Vol] 10.7 mmol/L Normal [facility] Comment on above: Performed By: #### L IPID, BMP #### [facility] [address] [address] [address] Moreno Amato Calcium [Mass/Vol] 9.6 mg/dL Normal 8.5-10.1 [facility] Comment on above: Performed By: #### L IPID, BMP #### [facility] [address] [address] [address] Moreno Amaot Chloride [Moles/Vol] 104 mmol/L Normal 98-107 [facility] Comment on above: Performed By: #### L IPID, BMP #### [facility] [address] [address] [address] Moreno Amato CO2 [Moles/Vol] 31.6 mmol/L Normal 21.0-32.0 [facility] Comment on above: Performed By: #### L IPID, BMP #### [facility] [address] [place] [address] Dr. Moreno Amato Creatinine [Mass/Vol] 1.58 mg/dL Critically high 0.55-1.02 [facility] Comment on above: Performed By: #### L IPID, BMP #### [facility] [address] [place] [address] Dr. Moreno Amato EGFR-AF IRAQI 40 mL/min/1.73m2 Critically low >=60 [facility] Comment on above: Performed By: #### L IPID, BMP #### [facility] [address] [place] [address] Dr. Moreno Amato EGFR-NON AF IRAQI 33 mL/min/1.73m2 Critically low >=60 [facility] Comment on above: Performed By: #### L IPID, BMP #### [facility] [address] [place] [address] Dr. Moreno Amato Glucose [Mass/Vol] 79 mg/dL Normal 74-106 [facility] Comment on above: Performed By: #### L IPID, BMP #### [facility] [address] [place] [address] Dr. Moreno Amato Potassium [Moles/Vol] 4.3 mmol/L Normal 3.5-5.1 [facility] Comment on above: Performed By: #### L IPID, BMP #### [facility] [address] [place] [address] Dr. Moreno Amato Sodium [Moles/Vol] 142 mmol/L Normal 136-145 [facility] Comment on above: Performed By: #### L IPID, BMP #### [facility] [address] [place] [address] Dr. Moreno Amato Urea nitrogen [Mass/Vol] 21.0 mg/dL Critically high 7.0-18.0 [facility] Comment on above: Performed By: #### L IPID, BMP #### [facility] [address] [place] [address] Dr. Moreno Amato Urea nitrogen/Creatinine [Mass ratio] 13.3 mg/mg Normal [facility] Comment on above: Performed By: #### L IPID, BMP #### [facility] [address] [place] [address] Dr. Moreno Amato URINE T PROTEIN CREAT RATIOo n 06-12-2022 Protein (U) [Mass/Vol] 8.8 mg/dL Normal <=12.0 [facility] Comment on above: Performed By: #### A MY, CMP, LIPA #### [facility] [address] [place] [address] Dr. Moreno Amato UR PROT CREAT RAT 0.[address] [facility] Comment on above: Performed By: #### A MY, CMP, LIPA #### [facility] [address] [place] [address] Dr. Moreno Amato URINE CREAT 70.82 mg/dL Normal 20.00-300. 00 [facility] Comment on above: Performed By: #### A MY, CMP, LIPA #### [facility] [address] [place] [address] Dr. Moreno Amato HEMOGLOBINon 04-30-2022 Hemoglobin (Bld) [Mass/Vol] 15.3 g/dL Normal 12.0-16.0 [facility] Comment on above: Performed By: #### A MY, CMP, LIPA #### [facility] [address] [address] [address] Moreno Amato LIPID PROFILEon 03-27-2022 CHOL-HDL RATIO NORM SEE BELOW Normal [facility] Comment on above: Result Comment: 3.3 - 4.4 LOW RISK 4.4 - 7.1 AVERAGE RISK 7.1 - 11.0 MODERATE RISK >11.0 HIGH RISK Performed By: #### A MY, CMP, LIPA #### [facility] [address] [address] [address] Moreno Amato Cholesterol [Mass/Vol] 217 mg/dL Critically high <=200 [facility] Comment on above: Performed By: #### A MY, CMP, LIPA #### [facility] [address] [address] [address] Moreno Amato Cholesterol in HDL [Mass/Vol] 42 mg/dL Normal 40-60 [facility] Comment on above: Performed By: #### A MY, CMP, LIPA #### [facility] [address] [address] [address] Moreno Amato Cholesterol in LDL [Mass/Vol] 121.6 mg/dL Normal [facility] Comment on above: Performed By: #### A MY, CMP, LIPA #### [facility] [address] [address] [address] Moreno Amato Cholesterol.total/Chol esterol in HDL [Mass ratio] 5.2 {ratio} Normal [facility] Comment on above: Performed By: #### A MY, CMP, LIPA #### [facility] [address] [address] [address] Moreno Amato HDL NORMAL > or = 60 mg/dl - LO W CARDIOVASCULAR RISK <40 mg/dl - HIGH CARDIOVASCULAR RISK Normal [facility] Comment on above: Performed By: #### A MY, CMP, LIPA #### [facility] [address] [address] [address] Moreno Amato LDL CALC NORMAL SEE BELOW Normal [facility] Comment on above: Result Comment: <100 mg/dl OPTIMAL 100 - 129 mg/dl NEAR OR ABOVE OPTIMAL 130 - 159 mg/dl BORDERLINE HIGH 160 - 189 mg/dl HIGH >190 mg/dl VERY HIGH Performed By: #### A MY, CMP, LIPA #### [facility] [address] [address] [address] Moreno Amato Triglyceride [Mass/Vol] 267 mg/dL Critically high <=150 [facility] Comment on above: Performed By: #### A MY, CMP, LIPA #### [facility] [address] [address] [address] Moreno Amato VLDL CALC 53.4 mg/dL Normal [facility] Comment on above: Performed By: #### A MY, CMP, LIPA #### [facility] [address] [address] [address] Moreno Amato PROF CHEM 8 (BAS METB)on Anion gap [Moles/Vol] 11.1 mmol/L Normal [facility] Comment on above: Performed By: #### A MY, CMP, LIPA #### [facility] [address] [place] [address] Dr. Moreno Amato Calcium [Mass/Vol] 9.2 mg/dL Normal 8.5-10.1 [facility] Comment on above: Performed By: #### A MY, CMP, LIPA #### [facility] [address] [place] [address] Dr. Moreno Amato Chloride [Moles/Vol] 104 mmol/L Normal 98-107 [facility] Comment on above: Performed By: #### A MY, CMP, LIPA #### [facility] [address] [place] [address] Dr. Moreno Amato CO2 [Moles/Vol] 27.4 mmol/L Normal 21.0-32.0 [facility] Comment on above: Performed By: #### A MY, CMP, LIPA #### [facility] [address] [place] [address] Dr. Moreno Amato Creatinine [Mass/Vol] 1.30 mg/dL Critically high 0.55-1.02 [facility] Comment on above: Performed By: #### A MY, CMP, LIPA #### [facility] [address] [address] [address] Moreno Amato EGFR-AF IRAQI 51 mL/min/1.73m2 Critically low >=60 [facility] Comment on above: Performed By: #### A MY, CMP, LIPA #### [facility] [address] [place] [address] Dr. Moreno Amato EGFR-NON AF IRAQI 42 mL/min/1.73m2 Critically low >=60 [facility] Comment on above: Performed By: #### A MY, CMP, LIPA #### [facility] [address] [place] [address] Dr. Moreno Amato Glucose [Mass/Vol] 102 mg/dL Normal 74-106 [facility] Comment on above: Performed By: #### A MY, CMP, LIPA #### [facility] [address] [place] [address] Dr. Moreno Amato Potassium [Moles/Vol] 4.5 mmol/L Normal 3.5-5.1 [facility] Comment on above: Performed By: #### A MY, CMP, LIPA #### [facility] [address] [place] [address] Dr. Moreno Amato Sodium [Moles/Vol] 138 mmol/L Normal 136-145 [facility] Comment on above: Performed By: #### A MY, CMP, LIPA #### [facility] [address] [address] [address] Moreno Amato Urea nitrogen [Mass/Vol] 23.0 mg/dL Critically high 7.0-18.0 [facility] Comment on above: Performed By: #### A MY, CMP, LIPA #### [facility] [address] [place] [address] Dr. Moreno Amato Urea nitrogen/Creatinine [Mass ratio] 17.7 mg/mg Normal [facility] Comment on above: Performed By: #### A MY, CMP, LIPA #### [facility] [address] [place] [address] Dr. Moreno Johnson 03-27-2022 AST [Catalytic activity/Vol] 24 U/L Normal 15-37 [facility] Comment on above: Performed By: #### A MY, CMP, LIPA #### [facility] [address] [address] [address] Moreno Amato SGPTon 03-27-2022 ALT [Catalytic activity/Vol] 20 U/L Normal 14-59 [facility] Comment on above: Performed By: #### A MY, CMP, LIPA #### [facility] [address] [address] [address] Moreno Amato COVID/FLU RT-PCRon SARS-CoV-2 (COVID-19) RNA ELISA+probe Ql (Unsp spec) Negative [employer] Other COVID/FLU RT-PCR Negative [facility] [employer] Other Quick Strepon 03-19-2022 S. pyogenes Org specific cx Ql (Throat) Negative [employer] Other Quick Strep [place] [employer] Other Tobacco Screening.on 023 Adult depression screening assessment No [facility] y [address] DO Work Phone: Fall risk assessment c) Not medically indicated [facility] [address] DO Work Phone: Tobacco use status [facility] b) No [facility] [facility] DO Work Phone: PAP ACOG PANEL 2: 30 to 65on 03-02-2022 . . Normal [facility] Comment on above: Result Comment: Perf ormed at: WB Performed By: #### A MY, CMP, LIPA #### [facility] [address] [place] [address] Dr. Moreno Amato Age Gdln ACOG Testing 30-65 Normal [facility] Comment on above: Performed By: #### A MY, CMP, LIPA #### [facility] [address] [address] [address] Moreno Amato DIAGNOSIS: Comment Normal [facility] Comment on above: Result Comment: NEGA TIVE FOR INTRAEPITHELIAL LESION OR MALIGNANCY. Performed at: WB Performed By: #### A MY, CMP, LIPA #### [facility] [address] [address] [address] Moreno Amato HPV Aptima Negative Normal Negative [facility] Comment on above: Result Comment: This nucleic acid amplification test detects fourteen high-risk HPV types (16,18,31,33,35,39,45,51,52,56,58,59,66,68) without differentiation. Performed at: =G Performed By: #### A MY, CMP, LIPA #### [facility] [address] [address] [address] Moreno Amato HPV Genotype Reflex Comment Normal [facility] Comment on above: Result Comment: Crit eria not met, HPV Genotype not performed. Performed at: WB Performed By: #### A MY CMP, LIPA #### [facility] [address] [address] [address] Moreno Amato Methodology: Comment Normal [facility] Comment on above: Result Comment: This liquid based ThinPrep(R) pap test was screened with the use of an image guided system. Performed at: WB Performed By: #### A MY CMP, LIPA #### [facility] [address] [address] [address] Moreno Amato Note: Comment Normal [facility] Comment on above: Result Comment: The Pap [...] By: #### A MY, CMP, LIPA #### [facility] [address] [address] [address] Moreno Amato Performed by: Comment Normal [facility] Comment on above: Result Comment: Maria Luisa Chou Potato Picker (ASCP) Performed at: WB Performed By: #### A MY, CMP, LIPA #### [facility] [address] [place], [place] [address] Dr. Moreno Amato Specimen adequacy: Comment Normal [facility] Comment on above: Result Comment: Sati sfactory for evaluation. Endocervical and/or squamous metaplastic cells (endocervical component) are present. Performed at: WB Performed By: #### A MY, CMP, LIPA #### [facility] [address] [place], [place] [address] Dr. Moreno Amato XR CHEST 2 Von [...] by: AMY ROSS Date: 2022-02-19 22:40 Normal [facility] CARDIAC STRESS/REST INJE CTIONon 01-23-2022 [facility] CARDIAC STRESS/REST INJECTION Patient Name: DEYSI HERNANDEZ STUDY: MYOCARDIAL PERFUSION STRESS TEST WITH LEXISCAN Performing facility: [facility], [address] [place] [address], [address], [place] [address] [facility] Provider: Carlene Beal MD, FACC PCP: Dr. Mariann Thompson Supervising provider: Autumn Guidry RN, FOOD AND BEVERAGE CASHIER INDICATION: Chest discomfort Elevated troponin Hyperlipidemia HISTORY: Gender: F; Age: 61 y/o ; Height: 0 cm; Weight: 71.7891746 kg. High Cholesterol; HTN; Chest Pain; Quit smoking <1 year ago. COMPARISON: No comparison. ACCESSION NUMBER(S): [id number]; [id number]; [id number] ORDERING CLINICIAN: MARQUEZ BEAL TECHNIQUE: ONE DAY [...] Electronically signed by: WAQAR MARTINEZ MD Normal [facility] No Panel Informationon 01-23 Normal [facility] 600 DO Work Phone: Tobacco Screening.on 022 Fall risk assessment a) No falls within the last year [facility] 600 DO Work Phone: Tobacco use status CPHS b) No [facility] 600 DO Work Phone: MG MAMM SCREEN 3D NIRMALA CADon 10-30-2021 MG MAMM SCREEN 3D NIRMALA CAD Patient: DEYSI HERNANDEZ Exam Date: 10/30/2021 : 1960 Gender:F Ordering : SHAIKH Ford THOMPSON . Admission #: [id number] Family : Order #: [id number] CLICK HERE TO VIEW EXAM RADIOLOGY REPORT PROCEDURE: MAMMOGRAM SCREENING 3D BILATERAL CAD COMPARISON: MG MAMM NIRMALA SCRN W CAD DIG, 12/05/2012. INDICATIONS: Screening mammography Calculator Name NCI Breast Cancer Risk Assessment Tool 5 Year Breast Cancer Risk 1.00% Lifetime Breast Cancer Risk 5.50% Personal Breast Cancer No Personal Ovarian Cancer No Treatments None Family Cancers None LOCATION: [facility] BREAST COMPOSITION: Scattered areas fibroglandular density. FINDINGS: [...] M.D. on 10/31/2021 at 08:52 Normal [facility] Cardiac Stress Teston 2021 [facility] [address] [place] [address], [address] [place] [address] Exercise Stress Test Patient Name: DEYSI HERNANDEZ Ordering Physician: [id number] Beal MD Study Date: 10/17/2021 Reading Physician: [id number] Jaycob Newman MD, [facility] MRN/PID: [id number] Supervising Physician: [id number] Jaycob Newman MD, [facility] Accession/Order#: [id number] Referring Physician: Cyn BEAL Date of : 1960 PCP: Mariann THOMPSON Gender: M Fellow: Height: 162.56 cm Nurse: Jackie Shen RN Weight: 68.95 kg Data Modeling Specialist: KYLE BSA: 1.74 m2 Technologist: BMI: 26.09 kg/m2 Additional Staff: Age: 61 years cc report to: Patient Location: cc report to: [id number] Beal MD Study Type: Cardiac Stress Test Diagnosis/ICD: R07.89-Other chest pain Indication: Chest Pain Atypical Procedure/CPT: Stress Test Interpretation-23000; Stress Test Supervision-[id number] Falls Risk: Low: Patient has low risk [...] The adequate level of stress was achieved. [id number] Jaycob Newman MD, FACC Electronically signed on 10/23/2021 at 12:29:13 PM Final Normal [facility] Cardiac Stress Test Please click on the link to view the study images [facility] Work Phone: Cardiac Stress Test [facility] [place] [facility] 250 DO Work Phone: Creatinine and Glomerular fi ltration rate.predicted panel (S/P/Bld)Ordered By: Marquez Beal on 09-18-2021 Creatinine [Mass/Vol] 1.10 mg/dL 0.44-1.03 [facility] Estimated glomerular filtrat ion rate (GFR) non- AmericanOrdered By: Marquez Beal on 09-18-2021 GFR/1.73 sq M.predicted among non-blacks MDRD (S/P/Bld) [Vol rate/Area] 51 mL/Min [facility] No Panel InformationOrdered By: Marquez Beal on 09-18-2021 Estimated GFR () > 60 mL/Min [facility] Comment on above: GFR estimated refere nce range: According to KDOQI guidelines, <60 ml/min/1.73m2 is sufficient to diagnose a patient with chronic kidney disease. Pharmacy Creatinine Clearance (Chem N/A [facility] No Panel Informationon 09-18 9.8\S\9.8 Normal 8.2-10.2 [facility] [address] DO Work Phone: Comment on above: PERFORMED BY:[address] [address] [place], [place] [id number] MEDICAL DIRECTORJERAMY CALDWELL M.D. 25.1\S\25.1 Normal 22.0-30.0 [facility] Work Phone: 100\S\100 Normal 95-114 [facility] Work Phone: 3.9\S\3.9 Normal 3.5-5.1 [facility] 250 DO Work Phone: 138\S\138 Normal 136-146 [facility] Work Phone: > 60 Normal [facility] Work Phone: Comment on above: GFR estimated refere nce range: According to KDOQI guidelines, <60 ml/min/1.73m2 is sufficient to diagnose a patient with chronic kidney disease. 51\S\51 Normal [facility] 250 DO Work Phone: 1.10\S\1.10 above high threshold 0.44-1.03 -[facility] 250 DO Work Phone: 15\S\15 Normal 9-23 -[facility] [place] 250 DO Work Phone: 95\S\95 Normal 70-100 -[facility] [place] 250 DO Work Phone: Comment on above: Random Glucose Refer ence Range is dependent on time and content of last meal. Glucose of more than 200 mg/dL in a nonstressed, ambulatory subject supports the diagnosis of Diabetes Mellitus. ADA recommended reference range Serum or plasma calcium teagan urement (mass/volume)Ordered By: Marquez Beal on 09-18-2021 Calcium [Mass/Vol] 9.8 mg/dL 8.2-10.2 [facility] Serum or plasma chloride sophia surement (moles/volume)Ordered By: Marquez Beal on 09-18-2021 Chloride [Moles/Vol] 100 mmol/L 95-114 [facility] Serum or plasma glucose teagan urement (mass/volume)Ordered By: Marquez Beal on 09-18-2021 Glucose [Mass/Vol] 95 mg/dL 70-100 [facility] Comment on above: ADA recommended refe rence range Random Glucose Reference Range is dependent on time and content of last meal. Glucose of more than 200 mg/dL in a nonstressed, ambulatory subject supports the diagnosis of Diabetes Mellitus. Serum or plasma potassium me asurement (moles/volume)Ordered By: Marquez Beal on 09-18-2021 Potassium [Moles/Vol] 3.9 mmol/L 3.5-5.1 [facility] Serum or plasma sodium measu rement (moles/volume)Ordered By: Marquez Beal on 09-18-2021 Sodium [Moles/Vol] 138 mmol/L 136-146 [facility] Serum or plasma total carbon dioxide measurement (moles/volume)Ordered By: Marquez Beal on 09-18-2021 CO2 [Moles/Vol] 25.1 mmol/L 22.0-30.0 [facility] Serum or plasma urea nitroge n measurement (mass/volume)Ordered By: Marquez Beal on 09-18-2021 Urea nitrogen [Mass/Vol] 15 mg/dL 9 [facility] Tobacco Screening.on 022 Adult depression screening assessment No -[facility] 250 DO Work Phone: Fall risk assessment a) No falls within the last year [facility] 250 DO Work Phone: Tobacco use status CPHS a) Yes [facility] 250 DO Work Phone: Tobacco Screening. Yes [facility] 250 DO Work Phone: Bacterial blood cultureOrder ed By: Bong Bansal on 08-19-2021 Bacteria identified Cx Nom (Bld) NO GROWTH 5 DAYS [facility] Basophils Auto (Bld) [#/Vol] Ordered By: Alaina Arce on 08-17-2021 Basophils (Bld) [#/Vol] 0.1 10*3/uL 0.0-0.2 [facility] Basophils/100 WBC Auto (Bld) Ordered By: Alaina Arce on 08-17-2021 Basophils/100 WBC (Bld) 0.7 % . [facility] Blood hemoglobin measurement (mass/volume)Ordered By: Alaina Arce on 08-17-2021 Hemoglobin (Bld) [Mass/Vol] 15.0 g/dL 11.8-15.4 [facility] Blood leukocytes automated c ount (number/volume)Ordered By: Alaina Arce on 08-17-2021 WBC (Bld) [#/Vol] 10.0 10*3/uL 4.5-11.0 [facility] Creatinine and Glomerular fi ltration rate.predicted panel (S/P/Bld)Ordered By: Alaina Arce on 08-17-2021 Creatinine [Mass/Vol] 1.27 mg/dL 0.44-1.03 [facility] Eosinophils Auto (Bld) [#/Vo l]Ordered By: Alaina Arce on 08-17-2021 Eosinophils (Bld) [#/Vol] 0.2 10*3/uL 0.0-0.45 [facility] Eosinophils/100 WBC Auto (Bl d)Ordered By: Alaina Arce on 08-17-2021 Eosinophils/100 WBC (Bld) 1.8 % . [facility] Erythrocyte distribution wid th Auto (RBC) [Ratio]Ordered By: Alaina Arce on 08-17-2021 Erythrocyte distribution width (RBC) [Ratio] 12.7 % 11.9-15.3 [facility] Estimated glomerular filtrat ion rate (GFR) non- AmericanOrdered By: Alaina Arce on 08-17-2021 GFR/1.73 sq M.predicted among non-blacks MDRD (S/P/Bld) [Vol rate/Area] 43 mL/Min [facility] Hematocrit Auto (Bld) [Volum e fraction]Ordered By: Alaina Arce on 08-17-2021 Hematocrit (Bld) [Volume fraction] 42.6 % 34.0-46.4 [facility] Laboratory - Hematology and Cell countsOrdered By: Alaina Arce on 08-17-2021 Nucleated RBC/100 WBC (Bld) [Ratio] 0.0 % 0-0.5 [facility] Lymphocytes Auto (Bld) [#/Vo l]Ordered By: Alaina Arce on 08-17-2021 Lymphocytes (Bld) [#/Vol] 2.4 10*3/uL 1.00-4.8 [facility] Lymphocytes/100 WBC Auto (Bl d)Ordered By: Alaina Arce on 08-17-2021 Lymphocytes/100 WBC (Bld) 23.7 % . [facility] MCH Auto (RBC) [Entitic mass ]Ordered By: Alaina Arce on 08-17-2021 MCH (RBC) [Entitic mass] 31.0 pg 24.7-34.3 [facility] MCHC Auto (RBC) [Mass/Vol]Or dered By: Alaina Arce on 08-17-2021 MCHC (RBC) [Mass/Vol] 35.3 g/dL 32.0-35.0 [facility] MCV Auto (RBC) [Entitic vol] Ordered By: Alaina Arce on 08-17-2021 MCV (RBC) [Entitic vol] 87.8 fL 80-100 [facility] Monocytes Auto (Bld) [#/Vol] Ordered By: Alaina Arce on 08-17-2021 Monocytes (Bld) [#/Vol] 1.0 10*3/uL 0.0-0.8 [facility] Monocytes/100 WBC Auto (Bld) Ordered By: Alaina Arce on 08-17-2021 Monocytes/100 WBC (Bld) 10.2 % . [facility] Neutrophils Auto (Bld) [#/Vo l]Ordered By: Alaina Arce on 08-17-2021 Neutrophils (Bld) [#/Vol] 6.3 10*3/uL 1.8-7.7 [facility] Neutrophils/100 WBC Auto (Bl d)Ordered By: Alaina Arce on 08-17-2021 Neutrophils/100 WBC (Bld) 63.6 % . [facility] No Panel InformationOrdered By: Alaina Arce on 08-17-2021 Estimated GFR () 52 mL/Min [facility] Comment on above: GFR estimated refere nce range: According to KDOQI guidelines, <60 ml/min/1.73m2 is sufficient to diagnose a patient with chronic kidney disease. Pharmacy Creatinine Clearance (Chem 47.54 [facility] Platelet mean volume Auto (B ld) [Entitic vol]Ordered By: Alaina Arce on 08-17-2021 Platelet mean volume (Bld) [Entitic vol] 8.5 fL 6.3-10.7 [facility] Platelets Auto (Bld) [#/Vol] Ordered By: Alaina Arce on 08-17-2021 Platelets (Bld) [#/Vol] 241 10*3/uL 150-450 [facility] RBC Auto (Bld) [#/Vol]Ordere d By: Alaina Arce on 08-17-2021 RBC (Bld) [#/Vol] 4.85 10*6/uL 3.60-5.00 [facility] Serum or plasma calcium teagan urement (mass/volume)Ordered By: Alaina Arce on 08-17-2021 Calcium [Mass/Vol] 8.9 mg/dL 8.2-10.2 [facility] Serum or plasma chloride sophia surement (moles/volume)Ordered By: Alaina Arce on 08-17-2021 Chloride [Moles/Vol] 101 mmol/L 95-114 [facility] Serum or plasma glucose teagan urement (mass/volume)Ordered By: Alaina Arce on 08-17-2021 Glucose [Mass/Vol] 132 mg/dL 70-100 [facility] Comment on above: ADA recommended refe rence range Random Glucose Reference Range is dependent on time and content of last meal. Glucose of more than 200 mg/dL in a nonstressed, ambulatory subject supports the diagnosis of Diabetes Mellitus. Serum or plasma potassium me asurement (moles/volume)Ordered By: Alaina Arce on 08-17-2021 Potassium [Moles/Vol] 2.9 mmol/L 3.5-5.1 [facility] Comment on above: Results called at 0721 on 08/17/21 Serum or plasma sodium measu rement (moles/volume)Ordered By: Alaina Arce on 08-17-2021 Sodium [Moles/Vol] 137 mmol/L 136-146 [facility] Serum or plasma total carbon dioxide measurement (moles/volume)Ordered By: Alaina Arce on 08-17-2021 CO2 [Moles/Vol] 25.3 mmol/L 22.0-30.0 [facility] Serum or plasma urea nitroge n measurement (mass/volume)Ordered By: Alaina Arce on 08-17-2021 Urea nitrogen [Mass/Vol] 17 mg/dL 9-23 [facility] Albumin [Mass/volume] in Ser um or PlasmaOrdered By: Alaina Arce on 08-16-2021 Albumin [Mass/Vol] 3.1 g/dL 3.2-5.5 [facility] Globulin Calc (S) [Mass/Vol] Ordered By: Alaina Arce on 08-16-2021 Globulin (S) [Mass/Vol] 3.0 g/dL [facility] Protein [Mass/volume] in Ser um or PlasmaOrdered By: Alaina Arce on 08-16-2021 Protein [Mass/Vol] 6.1 g/dL 6.1-7.9 [facility] Serum or plasma alanine spencer otransferase measurement without P-5'-P (enzymatic activiOrdered By: Alaina Arce on 08-16-2021 ALT No additional P-5'-P [Catalytic activity/Vol] 57 U/L 10-60 [facility] Serum or plasma albumin/glob ulin mass ratioOrdered By: Alaina Arce on 08-16-2021 Albumin/Globulin [Mass ratio] 1.0 {ratio} [facility] Serum or plasma alkaline calvin sphatase measurement (enzymatic activity/volume)Ordered By: Alaina Arce on 08-16-2021 ALP [Catalytic activity/Vol] 76 U/L 32-92 [facility] Serum or plasma aspartate am inotransferase measurement (enzymatic activity/volume)Ordered By: Alaina Arce on 08-16-2021 AST [Catalytic activity/Vol] 47 U/L 10-42 [facility] Serum or plasma total biliru bin measurement (mass/volume)Ordered By: Alaian Arce on 08-16-2021 Bilirubin [Mass/Vol] 1.5 mg/dL 0.3-1.2 [facility] Comment on above: Samples from patient s who have taken Naproxen have shown spurious elevation in Total Bilirubin levels. A metabolite of Naproxen, O-desmethylnaproxen, has been shown to interfere with the Jeneulaik-Grof method for measuring Total Bilirubin. Amphetamine Screen Ql (U)Ord ered By: Alaina Arce on 08-15-2021 Amphetamines Ql (U) Negative Negative [facility] Antithrombin measurement (un its/volume) in platelet poor plasma by chromogenic methodOrdered By: Janet Hamm on 08-15-2021 Antithrombin Chromogenic method Qn (PPP) 113 % 75-135 [facility] Comment on above: Direct Xa inhibitor anticoagulants such as rivaroxaban, apixaban and edoxaban will lead to spuriously elevated antithrombin activity levels possibly masking a deficiency. Barbiturates [Presence] in U rineOrdered By: Alaina Arce on 08-15-2021 Barbiturates Ql (U) Negative Negative [facility] Benzodiazepines [Presence] i n UrineOrdered By: Alaina Arce on 08-15-2021 Benzodiazepines Ql (U) Negative Negative [facility] Beta 2 glycoprotein 1 IgG Ab [Units/volume] in SerumOrdered By: Janet Hamm on 08-15-2021 Beta 2 glycoprotein 1 IgG Qn (S) <9 0-20 [facility] Comment on above: Result Units: [...] glycoprotein 1 IgM Qn (S) <9 0-32 [facility] Comment on above: Result Units: [...] 08-15-2021 Cannabinoids Screen Ql (U) Negative Negative [facility] Comment on above: These are [...] IA Qn (S) <9 GPL U/mL 0-14 [facility] Comment on above: Negative: <15 Indeterminate: 15 - 20 Low-Med Positive: >20 - 80 High Positive: >80 Cardiolipin IgM Ab [Units/vo lume] in Serum by ImmunoassayOrdered By: Janet Hamm on 08-15-2021 Cardiolipin IgM IA Qn (S) 17 MPL U/mL 0-12 [facility] Comment on above: Negative: <13 Indeterminate: 13 - 20 Low-Med Positive: >20 - 80 High Positive: >80 Cholesterol [Mass/volume] in Serum or PlasmaOrdered By: Janet Hamm on 08-15-2021 Cholesterol [Mass/Vol] 259 mg/dL 140-200 [facility] Comment on above: Chol less than 200 m g/dl low risk Chol 201-239 mg/dl borderline risk Chol 240 mg/dl and greater high risk Cholesterol in LDL Calc [Mas s/Vol]Ordered By: Janet Hamm on 08-15-2021 Cholesterol in LDL [Mass/Vol] 176 mg/dL 0-100 [facility] Comment on above: LDL ATP III CLASSIFI CATION LDL less than 100 mg/dL Optimal LDL 100-129 mg/dL Near or above optimal LDL 130-159 mg/dL Borderline high LDL 160-189 mg/dL High LDL greater than 189 mg/dL Very high Cholesterol in VLDL Calc [Ma ss/Vol]Ordered By: Janet Hamm on 08-15-2021 Cholesterol in VLDL [Mass/Vol] 32 mg/dL [facility] Dilute Vinay's viper venom timeOrdered By: Janet Hamm on 08-15-2021 dRVVT Coag (PPP) [Time] 45.5 s 0.0-47.0 [facility] Free protein S measurementOr dered By: Janet Hamm on 08-15-2021 Protein S Free Ag IA Qn (PPP) 134 % 61-136 [facility] Functional protein C measure mentOrdered By: Janet Hamm on 08-15-2021 Protein C actual/normal Chromogenic method (PPP) [Rel catalytic activity/Vol] 158 % 73-180 [facility] Laboratory - Drug toxicology Ordered By: Alaina Arce on 08-15-2021 Opiates Ql (U) Negative Negative [facility] Lupus anticoagulant [Interpr etation] in Platelet poor plasmaOrdered By: Janet Hamm on 08-15-2021 Lupus anticoagulant (PPP) [Interp] Comment: . [facility] Comment on above: No lupus anticoagula nt was detected. No Panel InformationOrdered By: Janet Hamm on 08-15-2021 Activated Protein C Resist Confirm 2.6 ratio 2.2-3.5 [facility] Comment on above: The APCR result may be falsely increased (masking an abnormal, low APCR result) in patients on direct Xa inhibitor (e.g., rivaroxaban, apixaban, edoxaban) or a direct thrombin inhibitor (e.g., dabigatran) anticoagulant therapy due to assay interference by these drugs. Phencyclidine Screen Ql (U)O rdered By: Alaina Arce on 08-15-2021 Phencyclidine Ql (U) Negative Negative [facility] Plasminogen measurementOrder ed By: Janet Hamm on 08-15-2021 Plasminogen actual/normal Chromogenic method (PPP) [Rel catalytic activity/Vol] 119 % 70-150 [facility] Platelet poor plasma ratio o f lupus anticoagulant-sensitive activated partial thromboOrdered By: Janet Hamm on 08-15-2021 aPTT.lupus sensitive.excess phospholipid actual/normal Coag (PPP) [Relative time] 38.6 sec 0.0-47.6 [facility] Prothrombin gene [id number] mut ation detectionOrdered By: Janet Hamm on 08-15-2021 F2 gene targeted mutation analysis [employer] Nom (Bld/Tiss) See comment . [facility] Comment on above: Result: c.*97G>A [...] the F2 gene and a c.1601G>A (p. [id number]) variant in the F5 gene (commonly referred to as Factor V Leiden) have an approximately 20- fold increased risk for venous thromboembolism. Risks are likely to be even higher in more complex genotype combinations involving the F2 c.*97G>A variant and Factor V Leiden (PMID: [id number]). Additional risk factors include but are not [...] health care providers to discuss results at [phone] ([phone]). 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 It has not been cleared or approved by the Food and Drug Administration. References: Taj S, Briana AK, Gilberto R, Bogdan WW, Yanick WOMACK; [employer] Professional Practice and Guidelines Committee. Addendum: [employer] [employer] consensus statement on factor V Leiden mutation testing. [employer]. 2020Apr 22. doi: 10.1038/i46132-218-02878-i. PMID: 84247284. Edgardo KRISHNA. Prothrombin Thrombophilia. 2005Sep 11 [Updated 2020Mar 24]. In: Rober MP, Thaddeus HH, Iman RA, et al., editors. Aliyah(Hannah) [Internet]. [place] ([place]): [facility]; 8812-8044. Available from: https://www.ncbi.nlm.nih.gov/books/XPD1310/ Ariel S, Briana AK, Aakash X, Grady B, Vidal EB, Siobhan P, Anny CS; [facility] Laboratory Construction Management Assistant Committee. Venous thromboembolism laboratory testing (factor V Leiden and factor II c.*97G>A), 2018 update: a technical standard of the [employer] [employer] ([employer]). [employer]. 2018 Jan;20(12):8198-7701. doi: [id number]. Epub 2017Nov 22. PMID: [id number]. Evon Negron, PhD, FACMG Otis Guthrie, PhD, FACMG Rehan Goodson, PhD, FACMG Nick Bergeron, PhD, FACMG W Mona Pagan, PhD, FACMG Vee Mera, PhD, FACMG Gregoria Carrasco, PhD, FAC Performed at: CB - [facility] [id number] Yacht Hand: Harshad Acosta PhD, Phone: [phone] Performed at: BN - [facility] [id number] Yacht Hand: Veronica Ring MD, Phone: [phone] Performed at: - [facility] [address] [place], [place] [id number] Yacht Hand: Becky Cabezas [facility], Phone: [phone] Serum or plasma high density lipoprotein (HDL) cholesterol measurementOrdered By: Janet Hamm on 08-15-2021 Cholesterol in HDL [Mass/Vol] 50 mg/dL 35-85 [facility] Comment on above: HDL CHOL ATP-III CLA SSIFICATION Cardiovascular Risk HDL > or equal to 60 mg/dL LOW HDL < 40 mg/dL HIGH Serum or plasma homocysteine measurement (moles/volume)Ordered By: Janet Hamm on 08-15-2021 Homocysteine [Moles/Vol] 12.8 umol/L 0.0-14.5 [facility] Serum or plasma total choles terol/high density lipoprotein (HDL) cholesterol mass ratOrdered By: Janet Hamm on 08-15-2021 Cholesterol.total/Chol esterol in HDL [Mass ratio] 5.2 {ratio} <5.0 [facility] Triglyceride [Mass/volume] i n Serum or PlasmaOrdered By: Janet Hamm on 08-15-2021 Triglyceride [Mass/Vol] 164 mg/dL 35-149 [facility] Comment on above: TRIG ATP III CLASSIF ICATION TRIG less than 150 mg/dL Normal TRIG 150-199 mg/dL Borderline high TRIG 200-500 mg/dL High TRIG greater than 500 mg/dL Very high Standard traceable to the Center for Disease Conrtrol and Prevention (CDC) test method. Urine cocaine detectionOrder ed By: Alaina Arce on 08-15-2021 Cocaine Ql (U) Negative Negative [facility] Urine culture routineOrdered By: Alaina Arce on 08-15-2021 Bacteria identified Cx Nom (U) 2 Days [facility] aPTT.lupus sensitive (LA scr een)Ordered By: Janet Hamm on 08-15-2021 aPTT.lupus sensitive Coag (PPP) [Time] 35.2 sec 0.0-51.9 [facility] aPTT.lupus sensitive/aPTT.sheryl pus sensitive W excess phospholipid (screen to confirm raOrdered By: Janet Hamm on 08-15-2021 aPTT.lupus sensitive/aPTT.lupus sensitive W excess phospholipid Coag (PPP) [Ratio] 0.94 Ratio 0.00-1.34 [facility] Activated partial thrombopla stin time (aPTT) in platelet poor plasma by coagulation aOrdered By: Bong Bansal on 08-14-2021 aPTT Coag (PPP) [Time] 28.2 s 25.1-36.5 [facility] Bacterial blood cultureOrder ed By: Bong Bansal on 08-14-2021 Bacteria identified Cx Nom (Bld) NO GROWTH 5 DAYS [facility] Creatinine [Mass/volume] in UrineOrdered By: Alaina Arce on 08-14-2021 Creatinine (U) [Mass/Vol] 74.6 mg/dL [facility] Comment on above: No reference range e stablished Glucose Glucometer (BldC) [M ass/Vol]Ordered By: Alaina Arce on 08-14-2021 Glucose [Mass/Vol] 102 mg/dL [facility] Comment on above: Random Glucose Refer ence Range is dependent on time and content of last meal. Glucose of more than 200 mg/dL in a nonstressed, ambulatory subject supports the diagnosis of Diabetes Mellitus. Glucose mean value [Mass/vol ume] in Blood Estimated from glycated hemoglobinOrdered By: Janet Hamm on 08-14-2021 Average glucose Estimated from glycated hemoglobin (Bld) [Mass/Vol] 126 mg/dL [facility] Hemoglobin A1c percentageOrd ered By: Janet Hamm on 08-14-2021 HbA1c (Bld) [Mass fraction] 6.0 % 4.3-5.6 [facility] Comment on above: Increased risk for d iabetes: 5.7 - 6.4 diabetes: >6.4 glycemic control for adults with diabetes: <7.0 Laboratory - Chemistry and C hemistry - challengeOrdered By: Alaina Arce on 08-14-2021 Magnesium [Mass/Vol] 2.3 mg/dL 1.6-2.6 [facility] Laboratory - CoagulationOrde red By: Bong Bansal on 08-14-2021 PT Coag (PPP) [Time] 11.8 s 9.0-12.9 [facility] Platelet poor plasma interna tional normalized ratio (INR) by coagulation assay (relatOrdered By: Bong Bansal on 08-14-2021 INR Coag (PPP) [Relative time] 1.1 {INR} [facility] Comment on above: INR Therapeutic [...] mg/dL 0-9 [facility] Renin activityOrdered By: Emma Arce on 08-14-2021 Renin (P) [Catalytic activity/Vol] 27.141 ng/mL/hr 0.167-5.38 0 [facility] Comment on above: This test was develo ped and its performance characteristics determined by [employer]. It has not been cleared or approved by the Food and Drug Administration. Performed at: [employer] [id number] Yacht Hand: eVronica Ring MD, Phone: [phone] Serum or plasma aldosterone measurement (mass/volume)Ordered By: Alaina Arce on 08-14-2021 Aldosterone [Mass/Vol] 7.8 ng/dL 0.0-30.0 [facility] Comment on above: This test was develo ped and its performance characteristics determined by [employer]. It has not been cleared or approved by the Food and Drug Administration. Performed at: [employer] [id number] Yacht Hand: Veronica Ring MD, Phone: [phone] Urine protein/creatinine rat ioOrdered By: Alaina Arce on 08-14-2021 Protein/Creatinine (U) [Ratio] 1340 mg/g{Cre} 0-200 [facility] Urine sodium measurement (mo les/volume)Ordered By: Alaina Arce on 08-14-2021 Sodium (U) [Moles/Vol] 54.0 mmol/L [facility] Comment on above: No reference range e stablished AMYLASEon 08-13-2021 Amylase [Catalytic activity/Vol] 80 U/L Normal 25-115 [facility] Comment on above: Performed By: #### A MY, CMP, LIPA #### [facility] [address] [place] [address] Dr. Moreno Amato Automated erythrocytes count in urine sediment (number/area)Ordered By: Alaina Arce on 08-13-2021 RBC Auto (Urine sed) [#/Area] 5-9 [HPF] 0-4 [facility] Automated leukocytes count i n urine sediment (number/area)Ordered By: Alaina Arce on 08-13-2021 WBC Auto (Urine sed) [#/Area] 20-49 [HPF] 0-4 [facility] Bilirubin Test strip Ql (U)O rdered By: Alaina Arce on 08-13-2021 Bilirubin Ql (U) Negative Negative [facility] CBC AUTO DIFFon 08-13-2021 BASO # 0.1 103/ul Normal 0.0-0.1 [facility] Comment on above: Performed By: #### C BC #### [facility] [address] [place] [address] Dr. Moreno Amato Basophils/100 WBC (Bld) 0.6 % Normal 0.2-2.0 [facility] Comment on above: Performed By: #### C BC #### [facility] [address] [place] [address] Dr. Moreno Amato EO # 0.1 103/ul Normal 0.0-0.7 [facility] Comment on above: Performed By: #### C BC #### [facility] [address] [place] [address] Dr. Moreno Amato Eosinophils/100 WBC (Bld) 0.6 % Critically low 0.9-7.0 [facility] Comment on above: Performed By: #### C BC #### [facility] [address] [place] [address] Dr. Moreno Amato Erythrocyte distribution width (RBC) [Ratio] 11.9 % Normal 11.0-15.0 [facility] Comment on above: Performed By: #### C BC #### [facility] [address] [place] [address] Dr. Moreno Amato Hematocrit (Bld) [Volume fraction] 51.0 % Critically high 36.0-48.0 [facility] Comment on above: Performed By: #### C BC #### [facility] [address] [place] [address] [address] Moreno Amato Hemoglobin (Bld) [Mass/Vol] 18.2 g/dL Critically high 12.0-16.0 [facility] Comment on above: Performed By: #### C BC #### [facility] [address] [place] [address] [address] Moreno Amato IG # 0.04 10e3/ul Critically high 0.00-0.[address] [facility] Comment on above: Performed By: #### C BC #### [facility] [address] [place] [address] [address] Moreno Amato IG % 0.3 % Normal 0.0-0.5 [facility] Comment on above: Performed By: #### C BC #### [facility] [address] [place] [address] [address] Moreno Amato LYMPH # 2.2 103/ul Normal 1.2-3.8 [facility] Comment on above: Performed By: #### C BC #### [facility] [address] [place] [address] [address] Moreno Amato Lymphocytes/100 WBC (Bld) 17.1 % Critically low 20.5-60.0 [facility] Comment on above: Performed By: #### C BC #### [facility] [address] [place] [address] [address] Moreno Amato MANUAL DIFF REQ NO Normal [facility] Comment on above: Performed By: #### C BC #### [facility] [address] [place] [address] [address] Moreno Amato MCH (RBC) [Entitic mass] 30.4 pg Normal 26.7-34.0 [facility] Comment on above: Performed By: #### C BC #### [facility] [address] [place] [address] [address] Moreno Amato MCHC (RBC) [Mass/Vol] 35.7 g/dL Critically high 29.9-35.2 [facility] Comment on above: Performed By: #### C BC #### [facility] [address] [place] [address] [address] Moreno Amato MCV (RBC) [Entitic vol] 85.1 fL Normal 81.0-99.0 [facility] Comment on above: Performed By: #### C BC #### [facility] [address] [place] [address] [address] Moreno Amato MONO # 1.3 103/ul Critically high 0.3-0.8 [facility] Comment on above: Performed By: #### C BC #### [facility] [address] [place] [address] Dr. Moreno Amato Monocytes/100 WBC (Bld) 10.0 % Normal 1.7-12.0 [facility] Comment on above: Performed By: #### C BC #### [facility] [address] [place] [address] Dr. Moreno Amato NEUT # 9.3 103/ul Critically high 1.4-6.5 [facility] Comment on above: Performed By: #### C BC #### [facility] [address] [place] [address] Dr. Moreno Amato Neutrophils/100 WBC (Bld) 71.4 % Normal 43.0-75.0 [facility] Comment on above: Performed By: #### C BC #### [facility] [address] [place] [address] Dr. Moreno Amato Platelet mean volume (Bld) [Entitic vol] 9.8 fL Normal 9.5-13.5 [facility] Comment on above: Performed By: #### C BC #### [facility] [address] [place] [address] Dr. Moreno Amato PLT 242 103/ul Normal 150-450 [facility] Comment on above: Performed By: #### C BC #### [facility] [address] [place] [address] Dr. Moreno Amato RBC 5.99 106/ul Critically high 4.20-5.40 [facility] Comment on above: Performed By: #### C BC #### [facility] [address] [place], [place] [address] Dr. Moreno Amato WBC 13.0 103/ul Critically high 4.0-11.0 [facility] Comment on above: Performed By: #### C #### [facility] [address] [place], [place] [address] ABD/PELVIS WO CONon [...] Vinay MANN Date: 2021-08-13 03:36 Normal [facility] CT STROKE HEAD WOon 08-14-19 CT [...] MAVIS ROSSI Date: 2021-08-13 07:39 Normal [facility] CULTURE URINEon 08-13-2021 CULTURE URINE Culture Observations : LIGHT GROWTH OF MIXED GENITAL ZOE. NO POTENTIAL PATHOGENS SEEN. Normal [facility] Comment on above: Performed By: #### A MY, CMP, LIPA #### [facility] [address] [place] [address] Dr. Moreno Amato Color Auto (U)Ordered By: Emma Arce on 08-13-2021 Color (U) Yellow [facility] Covid-19 PCR (CVDTBH)on 07-20 SARS-CoV-2 (COVID-19) RNA ELISA+probe Ql (Unsp spec) Not detected Normal NOT DETECTED [facility] Comment on above: Result Comment: When [...] for this test is supported by the Manager [place] of Health and Human Service's declaration that [...] used). Performed By: #### C VDTB #### [facility] [address] [place] [address] Dr. Moreno Amato ER URINE PROFILEon 2 Bilirubin Ql (U) Negative Normal NEGATIVE [facility] Comment on above: Performed By: #### E RUR, UMICRO #### [facility] [address] [place] [address] Dr. Moreno Amato Clarity (U) CLEAR Normal CLEAR [facility] Comment on above: Performed By: #### E RUR, UMICRO #### [facility] [address] [place] [address] Dr. Moreno Amato Color (U) LT. YELLOW Normal YELLOW [facility] Comment on above: Performed By: #### E RUR, UMICRO #### [facility] [address] [place] [address] Dr. Moreno Amato ERUAHD A micrscopic examina tion will be performed if indicated. Normal [facility] Comment on above: Performed By: #### E RUR, UMICRO #### [facility] [address] [place] [address] Dr. Moreno Amato Glucose Ql (U) Negative Normal NEGATIVE [facility] Comment on above: Performed By: #### E RUR, UMICRO #### [facility] [address] [place] [address] Dr. Moreno Amato Hemoglobin Ql (U) MODERATE Abnormal NEGATIVE [facility] Comment on above: Performed By: #### E RUR, UMICRO #### [facility] [address] [place] [address] Dr. Moreno Amato Ketones Ql (U) Negative Normal NEGATIVE [facility] Comment on above: Performed By: #### E RUR, UMICRO #### [facility] [address] [place] [address] Dr. Moreno Amato LEUKOCYTES SMALL Abnormal NEGATIVE [facility] Comment on above: Performed By: #### E RUR, UMICRO #### [facility] [address] [place] [address] Dr. Moreno Amato Nitrite Ql (U) Positive Abnormal NEGATIVE [facility] Comment on above: Performed By: #### NAOMI FRANCISCO #### [facility] [address] [place] [address] Dr. Moreno Amato pH (U) 6.0 [pH] Normal 5-9 [facility] Comment on above: Performed By: #### NAOMI FRANCISCO #### [facility] [address] [place] [address] Dr. Moreno Amato SPEC GRAVITY 1.020 Normal 1.005-<=1. 025 [facility] Comment on above: Performed By: #### NAOMI FRANCISCO #### [facility] [address] [place] [address] Dr. Moreno Amato UA PROTEIN >300 Abnormal NEGATIVE/ TRACE [facility] Comment on above: Performed By: #### NAOMI FRANCISCO #### [facility] [address] [place] [address] Dr. Moreno Amato UR MICRO IND INDICATED Normal [facility] Comment on above: Performed By: #### NAOMI FRANCISCO #### [facility] [address] [place] [address] Dr. Moreno Amato Urobilinogen Qn (U) 0.2 {[place]'U}/dL Normal 0.2 - 1. 0 [facility] Comment on above: Performed By: #### NAOMI FRANCISCO #### [facility] [address] [place] [address] Dr. Moreno Amato Ketones Auto test strip (U) [Mass/Vol]Ordered By: Alaina Arce on 08-13-2021 Ketones (U) [Mass/Vol] Negative Negative [facility] LACTATE/LACTIC ACIDon 2021 Lactate [Moles/Vol] 1.1 mmol/L Normal 0.4-1.9 [facility] Comment on above: Performed By: #### A MY, CMP, LIPA #### [facility] [address] [place] [address] [address] Moreno Amato LIPASEon 08-13-2021 Lipase [Catalytic activity/Vol] 524.0 U/L Critically high 73.0-393.0 [facility] Comment on above: Performed By: #### A MY, CMP, LIPA #### [facility] [address] [place] [address] [address] Moreno Amato Laboratory - Chemistry and C hemistry - challengeOrdered By: Alaina Arce on 08-13-2021 Lactate [Moles/Vol] 1.6 mmol/L 0.5-2.2 [facility] - UrinalysisOrder ed By: Alaina Arce on 08-13-2021 Hyaline casts LM Ql (Urine sed) 9-19 [LPF] 0-8 [facility] Nitrite Test strip Ql (U)Ord ered By: Alaina Arce on 08-13-2021 Nitrite Ql (U) Positive Negative [facility] POINT OF CARE GLUCOSEon 07-20 Glucose [Mass/Vol] 129 mg/dL Critically high 74-106 [facility] Comment on above: Performed By: #### A MY, CMP, LIPA #### [facility] [address] [place] [address] Dr. Moreno Amato PROF 14(COMP METB)on 022 Albumin [Mass/Vol] 3.4 g/dL Normal 3.4-5.0 [facility] Comment on above: Performed By: #### A MY, CMP, LIPA #### [facility] [address] [place] [address] Dr. Moreno Amato Albumin/Globulin [Mass ratio] 0.8 {ratio} Normal [facility] Comment on above: Performed By: #### A MY, CMP, LIPA #### [facility] [address] [place] [address] Dr. Moreno Amato ALP [Catalytic activity/Vol] 105 U/L Normal 46-116 [facility] Comment on above: Performed By: #### A MY, CMP, LIPA #### [facility] [address] [place] [address] [address] Moreno Amato ALT [Catalytic activity/Vol] 22 U/L Normal 14-59 [facility] Comment on above: Performed By: #### A MY, CMP, LIPA #### [facility] [address] [place] [address] [address] Moreno Amato Anion gap [Moles/Vol] 11.6 mmol/L Normal [facility] Comment on above: Performed By: #### A MY, CMP, LIPA #### [facility] [address] [address] [address] Moreno Amato AST [Catalytic activity/Vol] 22 U/L Normal 15-37 [facility] Comment on above: Performed By: #### A MY, CMP, LIPA #### [facility] [address] [place] [address] Dr. Moreno Amato Bilirubin [Mass/Vol] 0.7 mg/dL Normal 0.2-1.0 [facility] Comment on above: Performed By: #### A MY, CMP, LIPA #### [facility] [address] [address] [address] Moreno Amato Calcium [Mass/Vol] 9.6 mg/dL Normal 8.5-10.1 [facility] Comment on above: Performed By: #### A MY, CMP, LIPA #### [facility] [address] [place] [address] Dr. Moreno Amato Chloride [Moles/Vol] 97 mmol/L Critically low 98-107 [facility] Comment on above: Performed By: #### A MY, CMP, LIPA #### [facility] [address] [address] [address] Moreno Amato CO2 [Moles/Vol] 31.2 mmol/L Normal 21.0-32.0 [facility] Comment on above: Performed By: #### A MY, CMP, LIPA #### [facility] [address] [address] [address] Moreno Amato Creatinine [Mass/Vol] 1.64 mg/dL Critically high 0.55-1.02 [facility] Comment on above: Performed By: #### A MY, CMP, LIPA #### [facility] [address] [address] [address] Moreno Amato EGFR-AF IRAQI 39 mL/min/1.73m2 Critically low >=60 [facility] Comment on above: Performed By: #### A MY, CMP, LIPA #### [facility] [address] [place] [address] Dr. Moreno Amato EGFR-NON AF IRAQI 32 mL/min/1.73m2 Critically low >=60 [facility] Comment on above: Performed By: #### A MY, CMP, LIPA #### [facility] [address] [place] [address] Dr. Moreno Amato Globulin (S) [Mass/Vol] 4.1 g/dL Normal [facility] Comment on above: Performed By: #### A MY, CMP, LIPA #### [facility] [address] [place] [address] Dr. Moreno Amato Glucose [Mass/Vol] 110 mg/dL Critically high 74-106 [facility] Comment on above: Performed By: #### A MY, CMP, LIPA #### [facility] [address] [place] [address] Dr. Moreno Amato Potassium [Moles/Vol] 2.8 mmol/L Critically low 3.5-5.1 [facility] Comment on above: Performed By: #### A MY, CMP, LIPA #### [facility] [address] [place] [address] Dr. Moreno Amato Protein [Mass/Vol] 7.5 g/dL Normal 6.4-8.2 [facility] Comment on above: Performed By: #### A MY, CMP, LIPA #### [facility] [address] [place] [address] Dr. Moreno Amato Sodium [Moles/Vol] 137 mmol/L Normal 136-145 [facility] Comment on above: Performed By: #### A MY, CMP, LIPA #### [facility] [address] [place] [address] Dr. Moreno Amato Urea nitrogen [Mass/Vol] 26.0 mg/dL Critically high 7.0-18.0 [facility] Comment on above: Performed By: #### A MY, CMP, LIPA #### [facility] [address] [address] [address] Moreno Amato Urea nitrogen/Creatinine [Mass ratio] 15.9 mg/mg Normal [facility] Comment on above: Performed By: #### A MY, CMP, LIPA #### [facility] [address] [address] [address] Moreno Amato Protein Auto test strip (U) [Mass/Vol]Ordered By: Alaina Arce on 08-13-2021 Protein (U) [Mass/Vol] mg/dL Negative [facility] Specific gravity Auto test s trip (U) [Rel density]Ordered By: Alaina Arce on 08-13-2021 Specific gravity (U) [Rel density] 1.017 1.001-1.03 0 [facility] Squamous epithelial cells de tection in urine sediment by light microscopyOrdered By: Alaina Arce on 08-13-2021 Epithelial cells.squamous LM Ql (Urine sed) 3-4 [HPF] 0-2 [facility] TROPONIN, HIGH SENSITIVITYon 08-13-2021 HSTROP 91.0 pg/mL Critically high 4.0-51.3 [facility] Comment on above: Result Comment: CUT- OFF POINTS HAVE BEEN ESTABLISHED BASED ON THE FOURTH UNIVERSAL DEFINITIONS OF MYOCARDIAL INFARCTION. THE UPPER REFERENCE LIMIT (URL) OF TROPONIN, DEFINED THE 99TH PERCENTILE OF cTnI DISTRIBUTION IN A REFERENCE POPULATION, HAS BEEN CONFIRMED THE DECISION THRESHOLD FOR CO DIAGNOSIS. Performed By: #### A MY, CMP, LIPA #### [facility] [address] [address] [address] Moreno Amato HSTROP 109.0 pg/mL Critically high 4.0-51.3 [facility] Comment on above: Result Comment: CUT- OFF POINTS HAVE BEEN ESTABLISHED BASED ON THE FOURTH UNIVERSAL DEFINITIONS OF MYOCARDIAL INFARCTION. THE UPPER REFERENCE LIMIT (URL) OF TROPONIN, DEFINED THE 99TH PERCENTILE OF cTnI DISTRIBUTION IN A REFERENCE POPULATION, HAS BEEN CONFIRMED THE DECISION THRESHOLD FOR CO DIAGNOSIS. Performed By: #### H STROPN #### [facility] [address] [place] [address] Dr. Morneo Amato Troponin I.cardiac [Mass/vol ume] in Serum or Plasma by High sensitivity methodOrdered By: Alaina Arce on 08-13-2021 Troponin I.cardiac High sensitivity method [Mass/Vol] 50 pg/mL 0-15 [facility] Comment on above: Critical value result called at 1736 on 08/13/21 URINE MICROSCOPIC ONLYon BACTERIA SMALL Abnormal NONE SEEN [facility] Comment on above: Performed By: #### E RUR UMICRO #### [facility] [address] [place] [address] Dr. Morneo Amato Bacteria identified Cx Nom (U) INDICATED Normal [facility] Comment on above: Performed By: #### E RUR, UMICRO #### [facility] [address] [place] [address] Dr. Moreno Amato CAST SEEN Abnormal NONE SEEN [facility] Comment on above: Performed By: #### E RUR, UMICRO #### [facility] [address] [place] [address] Dr. Moreno Amato Crystals LM Nom (Urine sed) NONE SEEN Normal NONE SEEN [facility] Comment on above: Performed By: #### E RUR, UMICRO #### [facility] [address] [place] [address] Dr. Moreno Amato Epithelial cells LM Ql (Urine sed) FEW Abnormal NONE SEEN /RARE [facility] Comment on above: Performed By: #### E RUR, UMICRO #### [facility] [address] [place] [address] Dr. Moreno VASQUES CAST FEW Normal [facility] Comment on above: Performed By: #### E RUR, UMICRO #### [facility] [address] [place] [address] Dr. Moreno Amato MUCOUS NONE SEEN Normal NONE SEEN [facility] Comment on above: Performed By: #### E RUR, UMICRO #### [facility] [address] [address] [address] Moreno Amato RBC 2-5 Abnormal 0-2 [facility] Comment on above: Performed By: #### NAOMI FRANCISCO #### [facility] [address] [address] [address] Moreno Amato WBC 20-50 Abnormal NONE SEEN [facility] Comment on above: Performed By: #### NAOMI FRANCISCO #### [facility] [address] [address] [address] Moreno Amato Urine bacteria detection by automated methodOrdered By: Alaina Arce on 08-13-2021 Bacteria Auto Ql (U) None seen None Seen [facility] Urine clarity by refractomet ry automatedOrdered By: Alaina Arce on 08-13-2021 Clarity Refractometry automated (U) Cloudy Clear [facility] Urine culture routineOrdered By: Alaina Arce on 08-13-2021 Bacteria identified Cx Nom (U) 2 Days [facility] Urine glucose measurement by automated test strip (mass/volume)Ordered By: Alaina Arce on 08-13-2021 Glucose Auto test strip (U) [Mass/Vol] Normal mg/dL Normal [facility] Urine hemoglobin detection b y automated test stripOrdered By: Alaina Arce on 08-13-2021 Hemoglobin Auto test strip Ql (U) 1+ Negative [facility] Urine leukocyte esterase det ection by automated test stripOrdered By: Alaina Arce on 08-13-2021 Leukocyte esterase Auto test strip Ql (U) 1+ Negative [facility] Urobilinogen Auto test strip (U) [Mass/Vol]Ordered By: Alaina Arce on 08-13-2021 Urobilinogen (U) [Mass/Vol] Normal mg/dL Normal [facility] XR CHEST 1 Von 08-13-2021 [...] Vinay MANN Date: 2021-08-13 06:28 Normal [facility] pH Auto test strip (U)Ordere d By: Alaina Arce on 08-13-2021 pH (U) 5.5 [pH] 5.0-9.0 [facility] KYARA DIGITAL SCREEN SELF REFERRAL W OR WO CAD BILATERALon 12-16-2020 [facility] KYARA DIGITAL SCREEN SELF REFERRAL W [...] to the patient regarding the results. [employer] recommends annual mammograms for women 40 years and older. Interpreted by: Uvaldo Read Signed by: Uvaldo Read 12/16/20 Final result Normal [facility] Vital Signs Date Time Vital Sign Value Performing Clinician Facility 02-14-2023 09:56-0500 Inhaled oxygen flow rate 1 L/min MD Shaikh Thompson Work Phone: [facility] 02-14-2023 08:00-0500 Body temperature 97.7 [degF] MD Shaikh Thompson Work Phone: [facility] 02-14-2023 08:00-0500 Diastolic blood pressure 69 mm[Hg] MD Shaikh Thompson Work Phone: [facility] 02-14-2023 08:00-0500 Heart rate 78 /min MD Shaikh Thompson Work Phone: [facility] 02-14-2023 08:00-0500 Respiratory rate 20 /min MD Shaikh Thompson Work Phone: [facility] 02-14-2023 08:00-0500 SaO2% (BldA) [Mass fraction] 95 % MD Shaikh Thompson Work Phone: [facility] 02-14-2023 08:00-0500 Systolic blood pressure 118 mm[Hg] MD Shaikh Thompson Work Phone: [facility] 02-14-2023 05:51-0500 Body weight 69.9 kg MD Shaikh Thompson Work Phone: [facility] 02-13-2023 12:53-0500 Body height 157.48 cm MD Shaikh Thompson Work Phone: [facility] 02-10-2023 17:00-0500 Heart rate 85 /min [facility] 02-10-2023 16:38-0500 Diastolic blood pressure 80 mm[Hg] [facility] 02-10-2023 16:38-0500 Heart rate 80 /min [facility] 02-10-2023 16:38-0500 Mean blood pressure 99 mm[Hg] [facility] 02-10-2023 16:38-0500 Respiratory rate 18 /min [facility] 02-10-2023 16:38-0500 SaO2% (BldA) [Mass fraction] 95 % [facility] 02-10-2023 16:38-0500 Systolic blood pressure 138 mm[Hg] [facility] 02-10-2023 15:40-0500 Diastolic blood pressure 92 mm[Hg] [facility] 02-10-2023 15:40-0500 Heart rate 90 /min [facility] 02-10-2023 15:40-0500 Mean blood pressure 105 mm[Hg] [facility] 02-10-2023 15:40-0500 Respiratory rate 20 /min [facility] 02-10-2023 15:40-0500 SaO2% (BldA) [Mass fraction] 94 % [facility] 02-10-2023 15:40-0500 Systolic blood pressure 132 mm[Hg] [facility] 02-10-2023 14:42-0500 Body temperature 98.24 [degF] [facility] 02-10-2023 14:42-0500 Heart rate 93 /min [facility] 02-10-2023 14:42-0500 Respiratory rate 24 /min [facility] 02-10-2023 14:00-0500 Blood Pressure Location Jaxson Johnson [facility] 02-10-2023 14:00-0500 Body temperature 96.8 [degF] Jaxson Johnson [facility] 02-10-2023 14:00-0500 Diastolic blood pressure 90 mm[Hg] Jaxson Johnson [facility] 02-10-2023 14:00-0500 Heart rate 88 /min Jaxson Johnson [facility] 02-10-2023 14:00-0500 SaO2% (BldA) [Mass fraction] 92 % Jaxson Johnson [facility] 02-10-2023 14:00-0500 Systolic blood pressure 140 mm[Hg] Jaxson Johnson [facility] 10-15-2022 17:36-0400 Blood Pressure Location Damion Cheek [facility] 10-15-2022 17:36-0400 Body temperature 97.34 [degF] Damion Cheek [facility] 10-15-2022 17:36-0400 Diastolic blood pressure 76 mm[Hg] Damion Cheek [facility] 10-15-2022 17:36-0400 Heart rate 60 /min Damion Robledopsey [facility] 10-15-2022 17:36-0400 SaO2% (BldA) [Mass fraction] 96 % Damion Cheek [facility] 10-15-2022 17:36-0400 Systolic blood pressure 122 mm[Hg] Damion Cheek [facility] 10-09-2022 14:24-0400 Body height 157.5 cm Gurmeet Ojeda MD Work Phone: [facility] 10-09-2022 14:24-0400 Body temperature 97.5 [degF] Gurmeet Ojeda MD Work Phone: [facility] 10-09-2022 14:24-0400 Body weight 71.26 kg Gurmeet Ojeda MD Work Phone: [facility] 10-09-2022 14:24-0400 Diastolic blood pressure 60 mm[Hg] Gurmeet Ojeda MD Work Phone: [facility] 10-09-2022 14:24-0400 Heart rate 60 /min Gurmeet Ojeda MD Work Phone: [facility] 10-09-2022 14:24-0400 Systolic blood pressure 91 mm[Hg] Gurmeet Ojeda MD Work Phone: [facility] 08-09-2022 14:56-0400 Body height 157.5 cm Gurmeet Ojeda MD Work Phone: [facility] 08-09-2022 14:56-0400 Body temperature 97.7 [degF] Gurmeet Ojeda MD Work Phone: [facility] 08-09-2022 14:56-0400 Body weight 72.53 kg Gurmeet Ojeda MD Work Phone: [facility] 08-09-2022 14:56-0400 Diastolic blood pressure 64 mm[Hg] Gurmeet Ojeda MD Work Phone: [facility] 08-09-2022 14:56-0400 Heart rate 65 /min Gurmeet Ojeda MD Work Phone: [facility] 08-09-2022 14:56-0400 Systolic blood pressure 98 mm[Hg] Gurmeet Ojeda MD Work Phone: [facility] 06-14-2022 12:57-0400 Blood Pressure Location Ayala SALAM [facility] 06-14-2022 12:57-0400 Diastolic blood pressure 74 mm[Hg] Ayala SALAM [facility] 06-14-2022 12:57-0400 Heart rate 80 /min Ayala SALAM [facility] 06-14-2022 12:57-0400 Respiratory rate 16 /min Ayala SALAM [facility] 06-14-2022 12:57-0400 Systolic blood pressure 118 mm[Hg] Ayala SALAM [facility] 06-06-2022 10:13-0400 Blood Pressure Location TRUDY NGUYỄN [facility] 06-06-2022 10:13-0400 Diastolic blood pressure 88 mm[Hg] TRUDY NGUYỄN [facility] 06-06-2022 10:13-0400 Heart rate 74 /min TRUDY NGUYỄN [facility] 06-06-2022 10:13-0400 Systolic blood pressure 144 mm[Hg] TRUDY NGUYỄN [facility] 05-23-2022 10:41-0400 Blood Pressure Location TRUDY NGUYỄN [facility] 05-23-2022 10:41-0400 Diastolic blood pressure 85 mm[Hg] TRUDY NGUYỄN [facility] 05-23-2022 10:41-0400 Heart rate 72 /min TRUDY NGUYỄN [facility] 05-23-2022 10:41-0400 Systolic blood pressure 127 mm[Hg] TRUDY NGUYỄN [facility] 04-11-2022 11:01-0500 Blood Pressure Location TRUDY NGUYỄN [facility] 04-11-2022 11:01-0500 Diastolic blood pressure 88 mm[Hg] TRUDY NGUYỄN [facility] 04-11-2022 11:01-0500 Heart rate 71 /min TRUDY NGUYỄN [facility] 04-11-2022 11:01-0500 Systolic blood pressure 146 mm[Hg] TRUDY ADRIAN [facility] 03-19-2022 16:35-0500 Body height 163.83 cm Padmini Sam Other [facility] Other 03-19-2022 16:35-0500 Body mass index (BMI) [Ratio] 27.37 kg/m2 Padmini Sam Other [facility] Other 03-19-2022 16:35-0500 Body temperature 98.9 [degF] Padmini Sam Other [facility] Other 03-19-2022 16:35-0500 Body weight 73.48 kg Padmini Sam Other [facility] Other 03-19-2022 16:35-0500 Respiratory rate 18 /min Padmini Sam Other [facility] Other 03-19-2022 16:35-0500 SaO2% (BldA) [Mass fraction] 96 % Padmini Sam Other [employer] Other 03-13-2022 10:12-0500 Diastolic blood pressure 59 mm[Hg] MD Shaikh Thompson Work Phone: [facility] 03-13-2022 10:12-0500 Heart rate 77 /min MD Shaikh Thompson Work Phone: [facility] 03-13-2022 10:12-0500 Respiratory rate 18 /min MD Shaikh Thompson Work Phone: [facility] 03-13-2022 10:12-0500 SaO2% (BldA) [Mass fraction] 98 % MD Shaikh Thompson Work Phone: [facility] 03-13-2022 10:12-0500 Systolic blood pressure 93 mm[Hg] MD Shaikh Thompson Work Phone: [facility] 03-13-2022 07:54-0500 Body height 162.56 cm MD Shaikh Thompson Work Phone: [facility] 03-13-2022 07:54-0500 Body temperature 98 [degF] MD Shaikh Thompson Work Phone: [facility] 03-13-2022 07:54-0500 Body weight 73.48 kg MD Shaikh Thompson Work Phone: [facility] 03-12-2022 08:58-0500 Body height 160.02 cm Shaikh Donna Work Phone: [facility] [address] DO Work Phone: 03-12-2022 08:58-0500 Body mass index (BMI) [Ratio] 28.7 kg/m2 Shaikh Donna Work Phone: [facility] [address] DO Work Phone: 03-12-2022 08:58-0500 Body surface area Derived from formula 1.77 m2 Shaikh Donna Work Phone: [facility] 250 DO Work Phone: 03-12-2022 08:58-0500 Body weight 73.48 kg Shaikh Donna Work Phone: [facility] 250 DO Work Phone: 03-12-2022 08:58-0500 Diastolic blood pressure 78 mm[Hg] Shaikh Felysarah Work Phone: [facility] 250 DO Work Phone: 03-12-2022 08:58-0500 Heart rate 66 /min Shaikh Jabierwad Work Phone: [facility] 250 DO Work Phone: 03-12-2022 08:58-0500 Systolic blood pressure 110 mm[Hg] Shaikh Jabierwad Work Phone: [facility] 250 DO Work Phone: 01-23-2022 12:00-0500 72 1 Shaikh Jabierwad Work Phone: [facility] [address] [place] Work Phone: Comment on above: [id number] 11-09-2021 13:26-0400 Body height 160.02 cm Shaikh Leoneld Work Phone: [facility] 600 DO Work Phone: 11-09-2021 13:26-0400 Body mass index (BMI) [Ratio] 27.83 kg/m2 Shaikh Jabierwad Work Phone: [facility] [address] DO Work Phone: 11-09-2021 13:26-0400 Body surface area Derived from formula 1.75 m2 Shaikh Jabierwad Work Phone: [facility] [address] DO Work Phone: 11-09-2021 13:26-0400 Body weight 71.27 kg Shaikh Jabierwad Work Phone: [facility] [address] DO Work Phone: 11-09-2021 13:26-0400 Diastolic blood pressure 82 mm[Hg] Shaikh Felywwad Work Phone: [facility] [address] DO Work Phone: 11-09-2021 13:26-0400 Heart rate 64 /min Shaikh Jabierwad Work Phone: [facility] [address] DO Work Phone: 11-09-2021 13:26-0400 Systolic blood pressure 128 mm[Hg] Shaikh Jabierwad Work Phone: [facility] [address] DO Work Phone: 09-18-2021 10:26-0400 Diastolic blood pressure 80 mm[Hg] Shaikh Jabierwad Work Phone: [facility] 250 DO Work Phone: 09-18-2021 10:26-0400 Systolic blood pressure 178 mm[Hg] Shaikh Jabierwad Work Phone: [facility] 250 DO Work Phone: 09-18-2021 10:19-0400 Body height 162.56 cm Shaikh Jabierwad Work Phone: [facility] 250 DO Work Phone: 09-18-2021 10:19-0400 Body mass index (BMI) [Ratio] 26.09 kg/m2 Shaikh Jabierwad Work Phone: [facility] 250 DO Work Phone: 09-18-2021 10:19-0400 Body surface area Derived from formula 1.74 m2 Shaikh Jabierwad Work Phone: [facility] 250 DO Work Phone: 09-18-2021 10:19-0400 Body weight 68.95 kg Shaikh Jabierwad Work Phone: [facility] 250 DO Work Phone: 09-18-2021 10:19-0400 Diastolic blood pressure 80 mm[Hg] Shaikh Leoneld Work Phone: [facility] [employer] [facility] [address] DO Work Phone: 09-18-2021 10:19-0400 Heart rate 60 /min Shaikh Leoneld Work Phone: [facility] [address] DO Work Phone: 09-18-2021 10:19-0400 Systolic blood pressure 180 mm[Hg] Shaikh Leoneld Work Phone: [facility] [employer] [facility] [address] DO Work Phone: 08-23-2021 14:00-0400 Body temperature 98.9 [degF] Linn Missler Other [facility] Other 08-23-2021 14:00-0400 Body weight 66.13 kg Linn Missler Other [employer] Other 08-23-2021 14:00-0400 Diastolic blood pressure 87 mm[Hg] Linn Missler Other [facility] Other 08-23-2021 14:00-0400 Respiratory rate 18 /min Linn Missler Other [employer] Other 08-23-2021 14:00-0400 SaO2% (BldA) [Mass fraction] 96 % Linn Missler Other [facility] Other 08-23-2021 14:00-0400 Systolic blood pressure 137 mm[Hg] Linn Missler Other [facility] Other 08-17-2021 12:00-0400 Diastolic blood pressure 94 mm[Hg] PHYSICIAN NO [facility] 08-17-2021 12:00-0400 Heart rate 78 /min PHYSICIAN NO [facility] 08-17-2021 12:00-0400 Respiratory rate 18 /min PHYSICIAN NO [facility] 08-17-2021 12:00-0400 SaO2% (BldA) [Mass fraction] 95 % PHYSICIAN NO [facility] 08-17-2021 12:00-0400 Systolic blood pressure 152 mm[Hg] PHYSICIAN NO [facility] 08-17-2021 08:00-0400 Body temperature 97.5 [degF] PHYSICIAN NO [facility] 08-17-2021 05:57-0400 Body weight 75.8 kg PHYSICIAN NO [facility] 08-17-2021 00:44-0400 Inhaled oxygen flow rate 2 L/min PHYSICIAN [facility] 08-16-2021 14:43-0400 Body height 162.56 cm PHYSICIAN NO [facility] 08-16-2021 14:43-0400 Body mass index (BMI) [Ratio] 25.6 kg/m2 PHYSICIAN NO [facility] Encounters Encounter Date Encounter Type Care Provider Facility Start: 01-01-2024 ambulatory Dereck Horowitz ty:[facility] Start: 08-12-2023 End: 08-12-2023 ambulatory SHAIKH FELYPOLOD Not Available Start: 07-30-2023 End: 07-30-2023 ambulatory DUNBAR FAWWAD Not Available Start: 06-17-2023 End: 06-17-2023 ambulatory DUNBAR FAWWAD Not Available Start: 06-04-2023 End: 06-04-2023 ambulatory ROSIE BLANCHARD Not Available Start: 06-03-2023 End: 06-03-2023 ambulatory TRUDY ADRIAN Facility:[facility] Start: 06-03-2023 End: 06-03-2023 Patient encounter procedure TRUDY ADRIAN [facility] [place] Start: 05-17-2023 End: 05-17-2023 ambulatory ROSIE Yevgeniy BLANCHARD Not Available Start: 05-13-2023 End: 05-13-2023 ambulatory SHAIKH DONNA Not Available Start: 03-12-2023 End: 03-12-2023 [facility] Start: 03-12-2023 End: 03-12-2023 ambulatory MD Shaikh Thompson Work Phone: [facility] Work Phone: Start: 03-12-2023 End: 03-12-2023 Patient encounter procedure MD Shaikh Thompson Work Phone: [facility] [place] Work Phone: Start: 03-12-2023 End: 03-12-2023 ambulatory [facility] Start: 02-19-2023 End: 02-19-2023 ambulatory SHAIKH DONNA Not Available Start: 02-12-2023 End: 02-14-2023 Evaluation and management of inpatient Jacques Grider Antionegurmeet Facility:[facility] Start: 02-12-2023 End: 02-14-2023 Evaluation and management of inpatient MD Shaikh Thompson Work Phone: [facility] Work Phone: Start: 02-10-2023 End: 02-10-2023 Lab Drop off Jaxson Johnson [facility] Start: 02-10-2023 End: 02-10-2023 Emergency department patient visit Lizethvinicio Nunez Alvino [facility] Start: 02-10-2023 End: 02-10-2023 ambulatory Jaxson Johnson Facility:[facility] Start: 02-10-2023 End: 02-10-2023 Patient encounter procedure Jaxson Johnson [facility] Start: 01-30-2023 End: 01-30-2023 ambulatory TRUDY ADRIAN Facility:[facility] Start: 01-30-2023 End: 01-30-2023 Patient encounter procedure TRUDY ADRIAN [facility] Start: 10-29-2022 Orders Only Debra naik MD Work Phone: [facility] Comment on above: Stage 3 chronic kidn ey disease, unspecified whether stage 3a or 3b CKD (HCC) Start: 10-26-2022 Telephone encounter Debra sotomayor MD Work Phone: [facility] Comment on above: Patient Question Start: 10-25-2022 Telephone encounter Debra sotomayor MD Work Phone: [facility] Comment on above: Patient Question Start: 10-15-2022 End: 10-15-2022 Lab Drop off Damion Cheek [facility] Start: 10-15-2022 End: 10-15-2022 ambulatory Damion Cheek Facility:[facility] Start: 10-15-2022 End: 10-15-2022 Patient encounter procedure Damion Cheek [facility] Start: 10-15-2022 Rx Renewal Shaikh Donna Work Phone: [facility] [address] DO Work Phone: Start: 10-09-2022 End: 10-10-2022 ambulatory Rosie Harris DO Work Phone: [facility] [place] Start: 10-09-2022 End: 10-09-2022 Patient encounter procedure Gurmeet Ojeda MD Work Phone: [facility] Comment on above: Stage 3 chronic kidn ey disease, unspecified whether stage 3a or 3b CKD (HCC) (Primary Dx); Tobacco abuse; Hypertension, renal disease; Mixed hyperlipidemia; Atrophic kidney, acquired Start: 08-23-2022 End: 08-24-2022 ambulatory DEBRA FISHMAN [facility] Start: 08-09-2022 End: 08-09-2022 Patient encounter procedure Gurmeet Ojeda MD Work Phone: [facility] Comment on above: Stage 3b chronic kid domingo disease (HCC) (Primary Dx); Hypertension, unspecified type; Orthostatic hypotension; Alkalosis; Hypercholesteremia Start: 08-09-2022 End: 08-10-2022 ambulatory Debra Fishman MD Work Phone: [facility] Start: 06-19-2022 ambulatory SHAIKH Enrique THOMPSON Facilit y:[facility] Start: 06-14-2022 End: 06-14-2022 Patient encounter procedure Jamie BILLS [facility] Start: 06-12-2022 End: 06-13-2022 ambulatory SHAIKH Enrique THOMPSON Facility:[facility] Start: 06-06-2022 End: 06-06-2022 Patient encounter procedure TRUDY ADRIAN [facility] [place] Start: 05-23-2022 End: 05-23-2022 Patient encounter procedure TRUDY ADRIAN [facility] [place] Start: 04-30-2022 End: 05-01-2022 ambulatory SHAIKH Enrique THOMPSON Facility:[facility] Start: 04-11-2022 End: 04-11-2022 Patient encounter procedure TRUDY ADRIAN [facility] Start: 04-05-2022 End: 04-05-2022 ambulatory Kevyn Sharma Other [employer] Other Start: 04-05-2022 Telephone encounter Kevyn Carmichael ck [facility] Start: 03-27-2022 End: 03-28-[address] MARQUEZ BEAL Facility:[facility] Start: 03-19-2022 End: 03-19-2022 ambulatory Padmini Sam Other [employer] Other Start: 03-19-2022 Office outpatient vi sit 15 minutes Padmini Sam [facility] Start: 03-13-2022 End: 03-13-2022 Admission to same day surgery center MD Shaikh Thompson Work Phone: [facility] Work Phone: Start: 03-13-2022 End: 03-13-2022 ambulatory MD Shaikh Thompson Work Phone: [facility] Work Phone: Start: 03-12-2022 Office outpatient vi sit 25 minutes Shaikh Donna Work Phone: [facility] 250 DO Work Phone: Start: 02-26-2022 End: 02-26-[address] XAVIER STAFFORD . Facility:[facility] Start: 02-19-2022 End: 02-20-2022 ambulatory SHAIKH Enrique THOMPSON Facility:[facility] Start: 01-29-2022 Chart Update Shaikh Donna Work Phone: [facility] 600 DO Work Phone: Start: 01-23-[address] Marquez Beal II Facility:[id number] Start: 01-23-2022 Patient encounter procedure Shaikh Donna Work Phone: [facility] 250 DO Work Phone: Start: 11-16-2021 Rx Renewal Shaikh Donna Work Phone: [facility] 600 DO Work Phone: Start: 11-09-2021 ambulatory Marquez Beal II Facility: Start: 10-30-2021 End: 10-31-2021 ambulatory SHAIKH Enrique THOMPSON Facility:[facility] Start: 10-24-2021 Chart Update Shaikh Donna Work Phone: [facility] 250 DO Work Phone: Start: 10-17-[address] Marquez Beal II Facility:[id number] Start: 09-18-2021 ambulatory Marquez Beal II Facility: Start: 09-18-2021 Office outpatient vi sit 25 minutes Shaikh Donna Work Phone: [facility] 250 DO Work Phone: Start: 09-18-2021 End: 09-18-2021 Patient encounter procedure PHYSICIAN NO [facility] [place] Start: 09-18-2021 ambulatory Marquez Beal II Faci lity:[id number] Start: 08-23-2021 ([facility]) [facility] Transition of Care [facility] Start: 08-23-2021 End: 08-23-2021 ambulatory [facility] Other [facility] [employer] Other Start: 08-23-2021 End: 08-23-2021 Patient encounter procedure PHYSICIAN NO [facility] Start: 08-17-2021 End: 08-17-2021 Patient encounter procedure PHYSICIAN NO [facility] [facility] Start: 08-17-2021 ambulatory Marquez Beal II Facility:[id number] Start: 08-16-[address] Jaycob Newman Facility:[id number] Start: 08-15-2021 ambulatory Marquez Beal II Facility:[id number] Start: 08-14-2021 ambulatory Marquez Beal II Facility:[id number] Start: 08-13-2021 End: 08-17-2021 Evaluation and management of inpatient PHYSICIAN NO FAMILY [facility] Start: 08-13-2021 End: 08-13-2021 ambulatory Marquez Beal II Facility:[id number] Start: 12-08-2020 End: 12-11-2020 [facility] Start: 12-08-2020 End: 12-10-2020 Subsequent hospital visit by physician [facility] Mammography Comment on above: Encounter for screen ing mammogram for malignant neoplasm of breast Procedures Date Procedure Procedure Detail Performing Clinician Start: 03-12-2023 Aspartate aminotrans ferase [Enzymatic activity/volume] in Serum or Plasma MARQUEZ ALVAREZMELANIA Start: 03-12-2023 Basic metabolic 2000 panel - Serum or Plasma MARQUEZ ALVAREZMELANIA Start: 03-12-2023 Lipid panel MARQUEZ RICKETTS Start: [...] screen PHYSICIAN NO FAMILY Destructive procedure Shaikh Jabiergeovanna Work Phone: None (qualifier value) VERONICA JOEY NGUYỄN Total colonoscopy Shaikh Jabier garlandyevgeniy Work Phone: Comment on above: 2016; Urine culture PHYSICIAN NO F PRATIK Plan of Treatment Date Care Activity Detail Author Start: 10-10-2023 End: 12-10-2023 Renal function 2000 panel - Serum or Plasma RENAL FUNCTION PANEL Lab Routine Stage 3 chronic kidney disease, unspecified whether stage 3a or 3b CKD (HCC) Expected: 10/10/2023, Expires: 12/10/[address] [facility] Work Phone: Comment on above: Expected: 10/10/2023 , Expires: 12/10/2023 Start: 08-24-2023 SERUM CREATININE SERUM CREATININE [facility] Start: 03-12-2023 FUV, Provider: Marquez Beal, Status: Pen, Time: 11:00 AM FUV, Provider: Marquez Beal, Status: Pen, Time: 11:00 AM -[facility] 250 DO Work Phone: Start: 02-14-2023 [facility] Start: 02-12-2023 Microbial culture of sputum [facility] Start: 02-12-2023 Aerobic microbial culture Aerobic Cu lture [facility] Start: 02-12-2023 Hospital admission [facility] Start: 02-12-2023 [facility] Start: 10-19-2022 Influenza [facility] Start: 08-09-2022 End: 10-09-2022 25-hydroxyvitamin D3 [Mass/volume] in Serum or Plasma VITAMIN D 25 HYDROXY Lab Routine Stage 3b chronic kidney disease (HCC) Expected: 08/09/2022, Expires: 10/09/[address] [facility] Work Phone: Comment on above: Expected: 08/09/2022 , Expires: 10/09/2022 Start: 08-09-2022 End: 10-09-2022 MONOCLONAL PROTEIN, SERUM (BLOOD) MONOCLONAL PROTEIN, SERUM (BLOOD) Lab Routine Stage 3b chronic kidney disease (HCC) Expected: 08/09/2022, Expires: 10/09/[address] [facility] Work Phone: Comment on above: Expected: 08/09/2022 , Expires: 10/09/2022 Start: 08-09-2022 End: 10-09-2022 Renal function 2000 panel - Serum or Plasma RENAL FUNCTION PANEL Lab Routine Stage 3b chronic kidney disease (HCC) Expected: 08/09/2022, Expires: 10/09/[address] [facility] Work Phone: Comment on above: Expected: 08/09/2022 , Expires: 10/09/2022 Start: 03-13-2022 [facility] Start: 03-12-2022 FUV, Provider: Marquez Beal, Status: Pen, Time: 8:30 AM FUV, Provider: Marquez Beal, Status: Pen, Time: 8:30 AM [facility] BECC 250 DO Work Phone: Start: 02-18-2022 DEPRESSION ASSESSMENT DEPRESSION ASS ESSMENT [facility] Start: 12-21-2021 FUV, Provider: Marquez Beal, Status: Pen, Time: 12:50 PM FUV, Provider: Marquez Beal, Status: Pen, Time: 12:50 PM -[facility] [place] 600 DO Work Phone: Start: 12-08-2021 Mammography MAMMOGRAM [facility] Start: 11-22-2021 STRESS NUC, Provider : TRENA PAGEI NUCLEAR 01,[id number], Status: Pen, Time: 12:00 PM STRESS NUC, Provider: TRENA PAGEI NUCLEAR 01,[id number], Status: Pen, Time: 12:00 PM [facility] 600 DO Work Phone: Start: 11-22-2021 NURSEVST, Provider: KAYLEN ANAND PERFORMANCE TESTER 1,[id number], Status: Pen, Time: 10:30 AM NURSEVST, Provider: KAYLEN ANAND PERFORMANCE TESTER 1,[id number], Status: Pen, Time: 10:30 AM [facility] 600 DO Work Phone: Start: 11-09-2021 FUV, Provider: Marquez Beal, Status: Pen, Time: 1:10 PM FUV, Provider: Marquez Beal, Status: Pen, Time: 1:10 PM [facility] Work Phone: Start: 10-17-2021 STRESS IVAN, Provider : TRENA HHVI NUCLEAR 01,[id number], Status: Pen, Time: 2:00 PM STRESS IVAN, Provider: TRENA HHVI NUCLEAR 01,[id number], Status: Pen, Time: 2:00 PM [facility] 250 DO Work Phone: Start: 08-17-2021 [facility] Work Phone: Start: 08-14-2021 Referral to neurologist [facility] Work Phone: Start: 08-14-2021 Blood culture for bacteria, including anaerobic screen Blood Culture [facility] Start: 08-14-2021 [facility] Work Phone: Start: 08-13-2021 Ultrasonography of R ight and Left Heart, Transesophageal Ultrasonography of Right and Left Heart, Transesophageal [facility] Start: 08-13-2021 Hospital admission [facility] Work Phone: Start: 08-13-2021 Referral to wind energy technician [facility] Work Phone: Start: 03-27-2021 Colonoscopy COLONOSCOPY [facility] Start: 03-27-2021 COLORECTAL CANCER SCREENING COLORECTAL CANCER SCREENING [facility] Start: 03-11-2021 COVID-19 VACCINE (4 - Booster for Pfizer series) COVID-19 VACCINE (4 - Booster for Pfizer series) [facility] Start: 03-11-2021 COVID-19 VACCINE (4 - Pfizer series) COVID-19 VACCINE (4 - Pfizer series) [facility] Start: 02-07-2021 HPV TESTING HPV TESTING [facility] Start: 02-07-2021 PAP TESTING PAP TESTING [facility] Start: 10-19-2020 Influenza vaccination Flu vaccine (# 1) [employer] Phone: Start: 03-14-2017 HEMOGLOBIN/HEMATOCRIT HEMOGLOBIN/HEM ATOCRIT [facility] Start: 2012 Screening for malign ant neoplasm of breast [facility] Start: 2012 Shingles Vaccine (1 of 2) Herring gles Vaccine (1 of 2) [facility] [employer] Phone: Start: 2012 SHINGRIX VACCINE (1 of 2) HERRING GRIX VACCINE (1 of 2) [facility] Start: 05-12-2007 COLOGUARD (FIT-DNA) COLOGUARD (FIT-D NA) [facility] Start: 05-12-[address] COLONOGRAPHY [facility] Start: 05-12-2007 DIABETES SCREEN DIABETES SCREEN [facility] Start: 05-12-2007 FECAL OCCULT BLOOD FECAL OCCULT BLOO D [facility] Start: 05-12-2007 LIPID SCREEN LIPID SCREEN [facility] Start: 05-12-2007 Screening for malign ant neoplasm of colon Colon cancer screen colonoscopy [facility] [employer] [facility] Phone: Start: 05-12-2007 SIGMOIDOSCOPY SIGMOIDOSCOPY [facility] Start: 2002 [address] [facility] [employer] [facility] Phone: Start: 1992 Screening for malign ant neoplasm of cervix [employer] Phone: Start: 05-12-1983 Screening for malign ant neoplasm of cervix Pap smear [employer] Phone: Start: 1981 DTaP/Tdap/Td vaccine (1 - Tdap) DTaP/Tdap/Td vaccine (1 - Tdap) [facility] Work Phone: Start: 1981 Urine microalbumin profile DTAP,TDAP,TD (1 - Tdap) [facility] Start: 1980 ANNUAL PCP TEAM ADMINISTRATIVE RESOURCES ASSOCIATE ZEFERINO DISEASE VISIT ANNUAL PCP TEAM CHRONIC DISEASE VISIT [facility] Start: 1980 HEPATITIS C SCREENING HEPATITIS C [facility] Start: 1980 HIV SCREENING HIV SCREENING [facility] Start: 1977 HIV screening HIV screen [facility] Work Phone: Start: 1962 Hepatitis C screening Hepatitis C [facility] Work Phone: Activated protein C resistance assay [facility] Work Phone: Antithrombin [Units/volume] in Platelet poor plasma by Chromogenic method [facility] Work Phone: aPTT.lupus sensitive (LA screen) [facility] Work Phone: aPTT.lupus sensitive W excess phospholipid actual/Normal (normalized LA confirm) [facility] Work Phone: aPTT.lupus sensitive/aPTT.lupus sensitive W excess phospholipid (screen to confirm ra [facility] Work Phone: Beta 2 glycoprotein 1 IgG Ab [Units/volume] in Serum [facility] Work Phone: Beta 2 glycoprotein 1 IgM Ab [Units/volume] in Serum [facility] Work Phone: Cardiolipin IgG Ab [Units/volume] in Serum by Immunoassay [facility] Work Phone: Cardiolipin IgM Ab [Units/volume] in Serum by Immunoassay [facility] Work Phone: dRVVT (LA screen) [facility] Work Phone: F2 gene mutations fo und [Identifier] in Blood or Tissue by Molecular genetics method Nominal [facility] Work Phone: Homocysteine [Moles/volume] in Serum or Plasma [facility] Work Phone: Lupus anticoagulant [Interpretation] in Platelet poor plasma [facility] Work Phone: End: 12-08-2020 BERTA KYARA DIGITAL SCREEN SELF REFERRAL W OR WO CAD BILATERAL BERTA KYARA DIGITAL SCREEN SELF REFERRAL W OR WO CAD BILATERAL Imaging Routine Encounter for screening mammogram for malignant neoplasm of breast 1 Occurrences starting 12/08/2020 until 12/08/2020 [facility] Work Phone: Comment on above: 1 Occurrences starti ng 12/08/2020 until 12/08/2020 BERTA KYARA DIGITAL SCR EEN SELF REFERRAL W OR WO CAD BILATERAL BERTA KYARA DIGITAL SCREEN SELF REFERRAL W OR WO CAD BILATERAL Imaging Routine Encounter for screening mammogram for malignant neoplasm of breast 12/08/2020 1:30 PM EDT [facility] Work Phone: Patient Education [facility] Work Phone: Patient referral [facility] Work Phone: Plasminogen assay [facility] Work Phone: Protein C actual/nor mal in Platelet poor plasma by Chromogenic method [facility] Work Phone: Protein S Free Ag [Units/volume] in Platelet poor plasma by Immunoassay [facility] Work Phone: Renin [Enzymatic activity/volume] in Plasma [facility] Work Phone: End: 09-08-2023 US KIDNEY/BLADDER US KIDNEY/BLADDER Radiology Routine Stage 3b chronic kidney disease (HCC) 1 Occurrences starting 08/09/2022 until 09/08/[address] [facility] Work Phone: Comment on above: 1 Occurrences starti ng 08/09/2022 until 09/08/2023 [facility] Immunizations Immunization Date Immunization Notes Care Provider Fely shirley 01-14-2021 Pfizer-BioNTech COVI D-19 Vacc 30 MCG/0.3ML Intramuscular Suspension Shaikh Donna Work Phone: [facility] Joe Comment on above: Result Comment: 2022: [id number] 06-25-2020 Pfizer-BioNTech COVI D-19 Vacc 30 MCG/0.3ML Intramuscular Suspension Shaikh Leonelyevgeniy Work Phone: [facility] Comment on above: Reason for Medicatio n: Prophylaxis 06-04-2020 Pfizer-BioNTech COVI D-19 Vacc 30 MCG/0.3ML Intramuscular Suspension Shaikh Felysarah Work Phone: [facility] Comment on above: Reason for Medicatio n: Prophylaxis Payers Date Payer Category Payer Self-pay [id number] 2022 Medicaid [id number] 1960 Unknown [id number] 2.16.8 40.1.896251.3.579.2.1068 1962 Unknown [id number] 2.16.8 40.1.455648.3.579.2.1068 1962 Unknown [id number] 2.16. 840.1.899557.3.579.2.356 1962 Unknown [id number] 2.16 840.1.127830.3.579.2.356 1962 Unknown [id number] 2.16. 840.1.784651.3.579.2.356 1962 Unknown [id number] 2.16. 840.1.848267.3.579.2.356 1962 Unknown [id number] 2.16. 840.1.692513.3.579.2.356 1962 Unknown [id number] 2.16. 840.1.070642.3.579.2.356 1962 Unknown [id number] 2.16. 840.1.379826.3.579.2.356 1962 Unknown [id number] 2.16. 840.1.296132.3.579.2.356 1962 Unknown [id number] 2.16. 840.1.745384.3.579.2.356 1962 Unknown [id number] 2.16. 840.1.064805.3.579.2.356 1962 Unknown [id number] 2.16. 840.1.451572.3.579.2.356 1962 Unknown [id number] 2.16.84 0.1.688975.3.579.2.593 1962 Unknown [id number] 2.16.84 0.1.499395.3.579.2.593 1962 Unknown [id number] 2.16.84 0.1.151026.3.579.2.593 1962 Unknown [id number] 2.16.84 0.1.267017.3.579.2.593 1962 Unknown [id number] 2.16.84 0.1.007301.3.579.2.593 1962 Unknown [id number] 2.16.84 0.1.485752.3.579.2.593 1962 Unknown [id number] 2.16.84 0.1.926600.3.579.2.593 1962 Unknown [id number] 2.16.84 0.1.585419.3.579.2.593 1962 Unknown [id number] 2.16.84 0.1.150772.3.579.2.1259 1962 Unknown [id number] 2.16.84 0.1.618675.3.579.2.1259 1962 Unknown [id number] 2.16.84 0.1.648232.3.579.2.1259 1962 Unknown [id number] 2.16.84 0.1.842381.3.579.2.1259 1962 Unknown [id number] 2.16.84 0.1.646792.3.579.2.1259 1962 Unknown [id number] 2.16.84 0.1.166926.3.579.2.1259 1962 Unknown [id number] 2.16.840 .1.125239.3.579.2.1259 1962 Unknown [id number] 2.16.8 40.1.360306.3.579.2.727 1962 Unknown [id number] 2.16.8 40.1.384914.3.579.2.727 1962 Unknown [id number] 2.16.8 40.1.392398.3.579.2.727 1962 Unknown [id number] 2.16.8 40.1.610936.3.579.2.727 1962 Unknown [id number] 2.16.8 40.1.061232.3.579.2.727 1962 Unknown [id number] 2.16.8 40.1.098736.3.579.2.727 1962 Unknown [id number] 2.16.8 40.1.287164.3.579.2.727 1962 Unknown [id number] 2.16.8 40.1.452616.3.579.2.727 1962 Unknown [id number] 2.16.8 40.1.075034.3.579.2.1244 1959 Medicaid [id number] 30 [id number] Unknown [facility] [id number] Unknown Unknown [id number] 2.16.8 40.1.915490.3.579.2.531 Unknown [id number] 2.16.8 40.1.976772.3.579.2.531 Social History Date Type Detail Facility Start: 12-08-2020 Tobacco smoking stat us [facility] Unknown if ever smoked [facility] Work Phone: Start: 1960 Sex Assigned At Not on file [facility] Work Phone: Start: 08-16-2021 End: 08-09-2022 Tobacco smoking status NHIS Ex-smoker (finding) [facility] Start: 08-09-2022 End: 10-09-2022 History of tobacco use [facility] Start: 1960 Sex Assigned At Female F [facility] Start: 08-09-2022 End: 10-09-2022 Daily caffeine consumption Daily caffeine consumption [facility] 250 DO Work Phone: Comment on above: 1 CUP OF COFFEE; 2 CIGS DAILY; quit 2021; Start: 04-11-2022 End: 10-15-2022 Tobacco smoking status Heavy tobacco smoker (finding) [facility] Tobacco smoking status Never [facility] Start: 02-12-2023 End: 08-18-2017 History of tobacco use Current smoker [facility] End: 08-18-2017 History of tobacco use Cigarette Smoker [facility] Start: 08-09-2022 Tobacco use and exposure Smokeless tobacco non-user [facility] Start: 08-09-2022 Alcohol intake Current drinke r of alcohol (finding) [facility] Start: 10-09-2022 Alcohol intake Ex-drinker (finding) [facility] Start: 02-10-2023 Tobacco smoking status Light t obacco smoker (finding) [facility] Goals Date Patient Goal Desired Activity /State Functional Status Date Assessment Result Facility 02-14-2023 Functional status Patient at Baseline [facility] Work Phone: 02-10-2023 Functional Status N/A [facility] 10-15-2022 Functional Status N/A [facility] 06-14-2022 Functional Status N/A [facility] 06-06-2022 Functional Status N/A [facility] 05-23-2022 Functional Status N/A [facility] 04-11-2022 Functional Status N/A [facility] 08-17-2021 Functional status Patient at Baseline [facility] Work Phone: Mental Status Date Assessment Result Facility 02-14-2023 Cognitive function Cognitive Sta tus Patient at Baseline [facility] Work Phone: 08-17-2021 Cognitive function Cognitive Sta tus Patient at Baseline [facility] Work Phone: Clinical Notes 01-18-2010 to 02-14-2023 Note Date & Type Note Facility 02-14-2023 Discharge summary Note Date/Time February 14, 2023 12:53pm [facility] [address] [place] [address] Discharge Summary Signed Patient: Deysi Hernandez MR#: [id number] : 1960 Acct:[id number] Age/Sex: 62 / F Adm Date: 3 Loc: Room: [address] [place] [address]: Jacques East MD Copies to: [...] female with PMHx of CKD presented to [facility] with shortness of breath and was transferred to [facility] due to elevated [...] % (Auto) 87.6, Lymph % (Auto) 7.6, [place] % (Auto) 4.7, Eos % (Auto) 0.0, Baso % (Auto) 0.1, Nucleat RBC Rel Count 0.0, Neut # (Auto) 11.1 H, Lymph #(Auto) 1.0, [place] # (Auto) 0.6, Eos # (Auto) 0.0, [...] <Electronically signed by Jacques East MD> 02/14/23 1500 [facility] Work Phone: 1(352) 430-656812-28-2023 Progress note Author Jacques East [facility] February 14, 2023 12:45pm Note Date/Time February 14, 2023 7:29am [facility] [address] [place] [address] Hospitalist Progress Note Signed Patient: Deysi Hernandez MR#: [id number] : 1960 Acct:[id number] Age/Sex: 62 / F Adm Date: 3 Loc: Room: [address] [place] [address] Type: ADM IN Attending Dr: Jacques East [...] signed by Jacques East MD> 02/14/23 1245 [facility] Work Phone: 1(340) 486-772412-27-2023 Progress note Author Jacques East [facility] February 13, 2023 10:47am Note Date/Time February 13, 2023 10:40am [facility] [address] [place] [address] Hospitalist Progress Note Signed Patient: Deysi Hernandez MR#: [id number] : 1960 Acct:[id number] Age/Sex: 62 / F Adm Date: 3 Loc: 3T Room: [address] [place] [address] Type: ADM IN Attending Dr: Jacques East [...] creatinine clearance -Trending downward from 80s at [place] to 70s here. repeat trop 43, flat [...] <Electronically signed by Jacques East MD> 02/13/23 1040 [facility] Work Phone: 1(604) 121-981512-26-2023 History and physical note Author Jacques East [facility] February 12, 2023 11:26am Note Date/Time February 12, 2023 9:53am [facility] [address] [place] [address] Hospitalist H&P Signed Patient: Deysi Hernandez MR#: [id number] : 1960 Acct:[id number] Age/Sex: 62 / F Adm Date: 3 Loc: Room: [address] [place] [address] Type: ADM INOo Attending Dr: Jacques East MD Copies to: Geneva Rivas DO, RES MD Shaikh Donna Piña MD~ HPI DATE OF EXAMINATION: 02/12/23 CHIEF COMPLAINT: Shortness of breath HISTORY OF PRESENT ILLNESS: Patient is a 62 year old female with PMHx of CKD presented to [facility] with shortness of breath and was transferred to [facility] due to elevated [...] troponin 70.6 (down from 87 yesterday at [place]). Review of Systems Review of Systems All other systems reviewed & are negative unless noted below or in HPI Review of systems: 10 systems are reviewed and are negative except as mentioned elsewhere in the documentation [facility] Medical History CKD (chronic kidney disease) stage 3, GFR 30-59 ml/min Embolic cerebrovascular disease High cholesterol Problem List clean-up per request of Phys. EHR Cmte Hypertension Problem List clean-up [facility] Father Myocardial infarction Heart [...] % (Auto) 4.0 % (.) 02/12/23 06:41 [place] % (Auto) 1.8 % (.) 02/12/23 06:41 Eos % (Auto) 0.0 % (.) 02/12/23 06:41 Baso % (Auto) 0.2 % (.) 02/12/23 06:41 Nucleat RBC Rel Count 0.1 /100 WBC (0-0.5) 02/12/23 06:41 Neut # (Auto) 14.1 x10E3/uL (1.8-7.7) H 02/12/23 06:41 Lymph # (Auto) 0.6 x10E3/uL (1.00-4.8) L 02/12/23 06:41 [place] # (Auto) 0.3 x10E3/uL (0.0-0.8) 02/12/23 06:41 [...] creatinine clearance -Trending downward from 80s at [place] to 70s here. Will trend it again. [...] signed by Jacques East MD> 02/12/23 1126 [facility] Work Phone: 1(514) 546-670712-24-2023 Hospital Discharge instructions Patient Education 02/10/2023 17:12:09 Urinary Tract Infection, Adult, Kmfp-qw-Xjoh Urinary Tract Infection, Adult A urinary tract [...] Follow these instructions at home: Medicines Take vdqx-tzn-qojxiys and prescription medicines only as told by [...] provider. Document Revised: 09/16/2020 Document Reviewed: 09/16/2020 [employer] Patient Education 2022 [employer]. 02/10/2023 17:12:09 Acute Bronchitis, Adult Acute [...] condition. 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 Avoid contact with people who have cold [...] it is easier to cough up. Take rqeh-ent-lcnisey and prescription medicines only as told by [...] provider. Document Revised: 05/17/2022 Document Reviewed: 06/07/2021 [employer] Patient Education 2022 [employer] Follow Up Care 02/10/2023 14:38:40 With:SHAIKH DONNA Address: [address] [place] [phone] Business (1) When:02/13/2023 16:16:37 Comments:Follow-up with your primary care provider in 3 to 5 days. If symptoms worsen, do not improve, or new symptoms arise please report back to emergency department for further evaluation. [facility]12-24-2023 Evaluation + Plan note Diagnostic Tests Pending * Urine Culture 02/10/23 [facility]12-24-2023 Evaluation + Plan noteExtracted from: Title:ED [...] day(s), # 14 cap(s), Refills(s) 0, [id number], 163, cm, 02/10/23 14:52:00 EST, Height/Length Dosing, 70, kg, 02/10/23 14:52:00 EST, Weight Dosing predniSONE, 60 mg = 3 tab(s), Oral, Daily, X 5 day(s), # 15 tab(s), Refills(s) 0, [id number], 163, cm, 02/10/23 14:52:00 EST, Height/Length [...] Ag PT & PTT Rapid COVID Antigen ([facility]) Saline Lock Insert Troponin 0 Hr. Troponin 3 Hr. XR Chest Single View [facility]09-12-2023 Evaluation note* Diagnosis Stage 3 chronic kidney disease, unspecified whether stage 3a or 3b CKD (HCC) documented in this encounter [facility]09-11-2023 NoteHNO ID: [id number] Author: Debra Fishman MD Service: ? Author Type: Physician Type: Progress Notes Filed: 10/29/2022 9:00 PM Note Text: Patient contacted me regarding high blood pressure in 150-160 mmHg at home. We agreed to increase lisinopril back to 10 mg daily, updated prescription sent to pharmacy on file. Debra Fishman MD Staff, Department of Kidney Medicine 10/29/22 9:00 [facility]09-11-2023 History of Present illness Narrative * Debra Fishman MD - 10/29/2022 8:59 PM EDT Patient contacted me regarding high blood pressure in 150-160 mmHg at home. We agreed to increase lisinopril back to 10 mg daily, updated prescription sent to pharmacy on file. Debra Fishman MD Staff, Department of Kidney Medicine 10/29/22 9:00 PM [facility] Miscellaneous Notes* Telephone Encounter - Debra [...] question. I will also send her a Fit Steps message encouraging communicate via Fit Steps if needed. Debra Fishman MD Staff, Department of Kidney Medicine 10/26/22 5:49 PM documented in this encounterOur [facility]09-07-[facility]23 Miscellaneous Notes* Telephone Encounter - Linn Solis Ma - 10/25/2022 12:32 PM EDT Patient called the office very upset because today at here appointment with Kidney Medicine she wasseen by another provider and it wasn't her kidney doctor. She would like Dr. Fishman call her back at [phone] because she has lots of questions that the patient wants answers to and the patient is requesting that the provider calls her back after 5:30 pm due to the patient works that late Saturday thru Saturday documented in this encounterOur Lady Of Mercy [facility]08-28-2023 Hospital Discharge instructions Patient Education 10/15/2022 [...] Department of Health and Human Services: www.smokefree.gov [place] [employer]: www.freedomfromsmoking.org [place] [employer]: www.heart.org Where to find more [...] provider. Document Revised: 02/06/2022 Document Reviewed: 02/06/2022 CUPS Patient Education 2022 [employer]. 10/15/2022 18:04:53 Steps to Quit Smoking [...] require a prescription. You can also purchase dkil-wzg-xtbjkyb medicines. Medicines may have nicotine in them [...] and encouragement. Call telephone quitlines, such as 3-469-ZBEB-NOW, reach out to support groups, or work [...] provider. Document Revised: 01/26/2022 Document Reviewed: 01/26/2022 CUPS Patient Education 2022 [employer]. 10/15/2022 18:04:51 BMI for Adults BMI [...] numbers. This can be done either in [place] ([place] or metric measurements. Note that charts and online BMI calculators are available to help you find your BMI quickly and easily without having to do these calculations yourself. To calculate your BMI in [place] ([place] measurements: 1.Measure your weight in pounds [...] Centers for Disease Control and Prevention: www.cdc.gov [place] [employer]: www.heart.org National Heart, Lung, and Blood [place]: www.nhlbi.nih.gov Summary Body mass index (BMI) is a number that is calculated from a person's weight and height. BMI may help estimate how much of a person's weight is composed of fat. BMI can help identify thosewho may be at higher risk for certain medical problems. BMI can be measured using Monegasque measurements or metric measurements. BMI charts are used to identify whether you are underweight, normal weight, overweight, or obese. This information is not intended to replace advice given to you by your health care provider. Make sure you discuss any questions you have with your health care provider. Document Revised: 10/28/2019 Document Reviewed: 09/04/2019 CUPS Patient Education 2022 [employer]. 10/15/2022 18:04:48 Urinary Tract Infection, Adult Urinary [...] Treatment for this condition includes: Antibiotic medicine. Kjfa-cad-lgjiblo medicines to treat discomfort. Drinking enough water [...] Follow these instructions at home: Medicines Take irdu-qna-bllgvdh and prescription medicines only as told by [...] provider. Document Revised: 09/16/2020 Document Reviewed: 09/16/2020 CUPS Patient Education 2022 [employer]. 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 Author Type: Physician Type: Progress Notes Filed: 10/09/2022 5:08 PM Note Text: [facility] SERVICE DATE: 10/09/2022 [...] CKD, ESRD, hearing loss. 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 She is a fpc smoker, currently 0.75 pack per day butsmoked [...] plan. Rosie Harris DO documented in this encounterCleveland [id number] NotePatient Outreach (ELPIDIO) DEYSI HERNANDEZ ([id number]) 1960 F Date Time Provider Department 10/09/22 ROSIE HARRIS During your visit today, we recorded the following information about you: Allergies As of Date: 10/09/2022 Noted Allergy Reaction CODEINE 09/07/2014 7 - Swelling Date Reviewed: 10/09/2022 Reviewed by: Rosie Harris DO - Fully Assessed Visit Diagnosis:Screening for genitourinary condition [Z13.89] Order(s):URINALYSIS, REFLEX MICROSCOPIC [CQZ4192] Order #: [id number]. #:[id number] Prescriptions as of 10/12/2022 - lisinopril (ZESTRIL) [...] Mixed hyperlipidemia [E78.2] 10/09/2022 Encounter Status:Closed by [employer] Invest[employer] GroupYESENIA on 10/12/22[facility] 08-23-2022 NoteHNO ID: [id number] Author: Carine Farris RDMS Service: ? Author [...] Carine Farris RDMS August 23, 2022 2:23 [id number] NoteHNO ID: [id number] Author: Debra Fishman MD Service: ? 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 [...] Staff, Department of Kidney Medicine Pager # [phone] August 09, 2022 6:58 PM documented in this encounterOur Lady Of Mercy Hospital06-22-2023 NotePatient Outreach (KIDMMN) DEYSI HERNANDEZ ([id number]) 1960 F Date Time Provider Department 08/09/22 DEBRA FISHMAN During your visit today, we recorded the following information about you: Allergies As of Date: 08/09/2022 Noted Allergy Reaction CODEINE 09/07/2014 7 - Swelling Date Reviewed: 08/09/2022 Reviewed by: Paulo Holbrook MA - Fully Assessed Visit Diagnosis:Screening for genitourinary condition [Z13.89] Order(s):URINALYSIS, REFLEX MICROSCOPIC [[id number]] Order #: [id number]. #:[id number] Prescriptions as of 08/13/2022 - aspirin, enteric [...] for malignant neoplasm *03/27/2016 Encounter Status:Closed by WummelkisteDIANDRA on 08/13/22[facility] 06-06-2022 Hospital Discharge instructions Patient Education 06/06/2022 [...] your health care provider. General instructions Take knrh-zjy-dbtdmdl and prescription medicines only as told by [...] Document Reviewed: 10/24/2020 Elsevier Patient Education 2022 Undo [employer]. [facility] 04-05-2023 Hospital Discharge instructions Patient [...] Document Reviewed: 09/24/2018 Elsevier Patient Education 2020 [employer]. [facility] 02-22-2023 Hospital Discharge instructions Patient Education [...] 01/21/2013 Document Revised: 09/24/2018 Document Reviewed: 09/24/2018 CUPS Patient Education 2020 Undo [employer]. Follow Up Care 02/28/2022 14:28:28 With:NGUYỄN BRIDGES, TRUDY Goldsmith, URL Address: [address] [place] [address] When: Unknown [facility] 01-30-2023 Evaluation note* Encounter Date Diagnosis Assessment [...] concerns Feb, Sore throat (ICD-10 - J02.9) [facility] Other 01-24-2023 Procedure [facility]07-06-2022 Evaluation note* Encounter Date Diagnosis Assessment [...] risk of hypotension. Patient also educated on [employer] as patient does not have prescription insurance. Advised patient on proper assessment of blood pressure at home. Time spent with patient: 10 minutes Seen by: Akil Collins, PharmD, BCACP [employer] Other 06-29-2022 Progress note Author Ricky Reynoso [facility] August 16, 2021 6:37pm Note Date/Time August 16, 2021 6:37 pm [facility] [address] [place] [address] Hospitalist Progress Note Signed Patient: Deysi Hernandez MR#: [id number] : 1960 Acct:[id number] Age/Sex: 61 / F Adm Date: 2 Loc: Room: [address] [place] [address] Type : ADM IN Attending Dr: Ricky [...] Benzocaine 1 applic 08/16/21 15:00 Benzocaine 20% [place] 57 Gm Can MUCOUS MEM ONCE PRN [...] culture have been pending, urine culture at [place] showed mixed zoe, since patient presented with [...] <Electronically signed by Ricky Reynoso DO> 08/16/211836 [facility] Work Phone: 1(422) 588-618006-29-2022 Progress note Author Rober Wyatt [facility] August 16, 2021 5:13pm Note Date/Time August 16, 2021 8:17 am [facility] [address] [place] [address] Neurology Progress Note Signed Patient: Deysi Hernandez MR#: [id number] : 1960 Acct:[id number] Age/Sex: 61 / F Adm Date: 2 Loc: Room: [address] [place] [address] Type : ADM IN Attending Dr: Ricky [...] 4 extremities and symmetric CEREBELLAR EXAM: * Mbkytp-yv-xkod and alternating movements are intact and normal in bilateral upper extremities * Xwkd-lf-tfwy and alternating movements are intact and normal [...] Patient presented to the emergency room at [facility] with abdominal pain and was noted to have acute kidney injury and evidence of pyelonephritis and elevated troponin with EKG changes. She was transferred to [facility] for further evaluation. She is [...] <Electronically signed by Rober Wyatt DO> 08/16/21 1598 [facility] Work Phone: 1(576) 429-793006-29-2022 Progress note Author Marquez Beal [facility] August 16, 2021 10:47am Note Date/Time August 16, 2021 10:4 4am [facility] [address] [place], [place] [id number] Cardiology Progress Note Signed Patient: Deysi Hernandez MR#: [id number] : 1960 Acct:[id number] Age/Sex: 61 / F Adm Date: 2 Loc: Room: [address] [place] [address] Type : ADM IN Attending Dr: Ricky [...] % (Auto) 70.9 Lymph % (Auto) 18.6 [place] % (Auto) 9.4 Eos % (Auto) 0.4 Baso % (Auto) 0.7 Neut # (Auto) 7.7 Lymph # (Auto) 2.0 [place] # (Auto) 1.0 H Eos # (Auto) [...] mg daily. Documented By: Marquez Beal MD 1041 Signed By: <Electronically signed by MD Marquez Beal> 08/16/21 104 [facility] Work Phone: 1(599) 402-356006-28-2022 Consult note Author Rober Wyatt [facility] August 15, 2021 5:40pm Note Date/Time August 15, 2021 8:42 am [facility] [address] [place] [address] Neurology Consult Note Signed Patient: Deysi Hernandez MR#: [id number] : 1960 Acct:[id number] Age/Sex: 61 / F Adm Date: 2 Loc: Room: [address] [place] [address] Type : ADM IN Attending Dr: Alaina Arce MD Copies to: DO Janet Richter ANP-C Kanika Ahuja, MD NO FAMILY PHYSICIAN~ HPI Consult Date: 08/15/21 High School French Teacher: MAURICIO Rose with Dr Wyatt Reason for consult: Stroke Consult Narrative HPI: Patient is a 61-year-old female with unknown medical history. She was admitted to the hospital on 08/13/2021 after presenting to the emergency room with abdominal pain that been present for approximately 1 week associated with nauseaand vomiting. Patient presented to the emergency room in [place] and found to have significant hypertension and [...] head was nonacute. She was transferred to [facility] for further evaluation and management. [...] 4 extremities and symmetric CEREBELLAR EXAM: * Phcihy-ja-kuro and alternating movements are intact and normal in bilateral u pper extremities * Kwhe-uu-shhp and alternating movements are intact and normal [...] Christopher Ceja M.D.08/14/2021 4:57 PM Dictation Location: [place] [address] Therapy Recommendations Therapy Recommendations: OT Recommendations OT [...] Patient presented to the emergency room at [facility] with abdominal pain and was noted to have acute kidney injury and evidence of pyelonephritis and elevated troponin with EKG changes. She was transferred to [facility] for further evaluation. She is [...] profile laboratory studies Documented By: LESLEY Bustillo 0824 Signed By: <Electronically signed by LESLEY Hamm> 08/15/21 1025 <Electronically signed by Rober Wyatt DO> 08/15/21 1740 [facility] Work Phone: 1(173) 738-464806-28-2022 Progress note Author Marquez Beal [facility] August 15, 2021 4:25pm Note Date/Time August 15, 2021 4:25 pm [facility] [address] [place] [address] Cardiology Progress Note Signed Patient: Deysi Hernandez MR#: [id number] : 1960 Acct:[id number] Age/Sex: 61 / F Adm Date: 2 Loc: Room: [address] [place] [address] Type : ADM IN Attending Dr: Alaina [...] MPV Neut % (Auto) Lymph % (Auto) [place] % (Auto) Eos % (Auto) Baso % (Auto) Neut # (Auto) Lymph # (Auto) [place] # (Auto) Eos # (Auto) Baso # [...] % (Auto) 82.8 Lymph % (Auto) 8.6 [place] % (Auto) 7.9 Eos % (Auto) 0.1 Baso % (Auto) 0.6 Neut # (Auto) 11.6 H Lymph # (Auto) 1.2 [place] # (Auto) 1.1 H Eos # (Auto) [...] <Electronically signed by MD Marquez Beal> 08/15/21 162 [facility] Work Phone: 1(195) 785-412706-28-2022 Progress note Author Alaina Arce [facility] August 15, 2021 10:27am Note Date/Time August 15, 2021 10:2 7am [facility] [address] [place] [address] Hospitalist Progress Note Signed Patient: Deysi Hernandez MR#: [id number] : 1960 Acct:[id number] Age/Sex: 61 / F Adm Date: 2 Loc: 3T Room: 6P4954-3 Type : ADM IN Attending Dr: Alaina Arce MD Copies to: ~ Date of Service: 08/15/2021 Subjective Subjective Narrative: Patient is 61-year-old female with no previous known medical history GERD transferred from [place] for further management of abdominal pain. Patient [...] a week ago, patient initially went to [place] ER, was found to have blood pressure [...] showed changes similar to 1 done in [place], Labs at [facility], potassium 3.1, creatinine 1.92, bloodglucose [...] 1,000 Ml IV 08/13/22 10:59 75 mls/hr .[id number] ESTEBAN Administration Metoprolol Succinate 50 mg 08/15/21 [...] culture have been pending, urine culture at [place] showed mixed zoe, since patient presented with [...] signed by Alaina Arce MD> 08/15/21 1027 [facility] Work Phone: 1(771) 737-597506-27-2022 Progress note Author Bong Bansal [facility] August 14, 2021 6:15pm Note Date/Time August 14, 2021 4:52 pm [facility] [address] [place] [address] Event Note Signed Patient: Deysi Hernandez MR#: [id number] : 1960 Acct:[id number] Age/Sex: 61 / F Adm Date: 2 Loc: Room: [address] [place] [address] Type : ADM IN Attending Dr: Alaina [...] <Electronically signed by Bong Bansal MD> 08/14/21 8385 [facility] Work Phone: 1([phone]) 609-252706-27-2022 Progress note Author Marquez Beal [facility] August 14, 2021 3:21pm Note Date/Time August 14, 2021 3:21 pm [facility] [address] [place] [address] Cardiology Progress Note Signed Patient: Deysi Hernandez MR#: [id number] : 1960 Acct:[id number] Age/Sex: 61 / F Adm Date: 2 Loc: Room: [address] [place] [address] Type : ADM IN Attending Dr: Alaina [...] % (Auto) 64.9 Lymph % (Auto) 26.5 [place] % (Auto) 7.3 Eos % (Auto) 0.6 Baso % (Auto) 0.7 Neut # (Auto) 6.8 Lymph # (Auto) 2.8 [place] # (Auto) 0.8 Eos # (Auto) 0.1 [...] MPV Neut % (Auto) Lymph % (Auto) [place] % (Auto) Eos % (Auto) Baso % (Auto) Neut # (Auto) Lymph # (Auto) [place] # (Auto) Eos # (Auto) Baso # [...] <Electronically signed by MD Marquez Beal> 08/14/21 1520 [facility] Work Phone: 1(548) 777-377006-27-2022 Progress note Author Alaina Arce [facility] August 14, 2021 10:48am Note Date/Time August 14, 2021 10:4 4am [facility] [address] [place] [address] Hospitalist Progress Note Signed Patient: Deysi Hernandez MR#: [id number] : 1960 Acct:[id number] Age/Sex: 61 / F Adm Date: 2 Loc: Room: [address] [place] [address] Type : ADM IN Attending Dr: Alaina Arce MD Copies to: ~ Date of Service: 08/14/2021 Subjective Subjective Narrative: Patient is 61-year-old female with no previous known medical history GERD transferred from [place] for further management of abdominal pain. Patient [...] a week ago, patient initially went to [place] ER, was found to have blood pressure [...] showed changes similar to 1 done in [place], Labs at [facility], potassium 3.1, creatinine 1.92, bloodglucose [...] 1,000 Ml IV 08/13/22 10:59 75 mls/hr .[id number] ESTEBAN Administration Metoprolol Tartrate 25 mg 08/13/21 [...] culture negative, will get culture report from [place] Patient has significantly improved, continue Rocephin, will [...] signed by Alaina Arce MD> 08/14/21 1048 [facility] Work Phone: 1([phone]) 753-183206-26-2022 Consult note Author Marquez Beal [facility] August 13, 2021 1:32pm Note Date/Time August 13, 2021 1:32 pm [facility] [address] [place] [address] Cardiology Consult Note Signed Patient: Deysi Hernandez MR#: [id number] : 1960 Acct:[id number] Age/Sex: 61 / F Adm Date: 2 Loc: Room: [address] [place] [address] Type : ADM IN Attending Dr: Alaina [...] x10E3/uL Lymph # (Auto) 1.0 (1.00-4.8) x10E3/uL [place] # (Auto) 0.5 (0.0-0.8) x10E3/uL Eos # [...] diagnostic evaluation. Documented By: Marquez Beal MD 1329 Signed By: <Electronically signed by MD Marquez Beal> 08/13/21 9063 [facility] Work Phone: 1(703) 367-268906-26-2022 History and physical note Author Alaina Arce [facility] August 13, 2021 12:13pm Note Date/Time August 13, 2021 11:5 5am [facility] [address] [place] [address] Hospitalist H&P Signed Patient: Deysi Hernandez MR#: [id number] : 1960 Acct:[id number] Age/Sex: 61 / F Adm Date: 2 Loc: Room: [address] [place] [address] Type : ADM IN Attending Dr: Alaina Arce MD Copies to: Alaina Arce MD NO FAMILY PHYSICIAN~ HPI DATE OF EXAMINATION: 08/13/21 CHIEF COMPLAINT: Abdominal pain HISTORY OF PRESENT ILLNESS: Patient is 61-year-old female with no previous known medical history GERD transferred from [place] for further management of abdominal pain. Patient [...] a week ago, patient initially went to [place] ER, was found to have blood pressure [...] showed changes similar to 1 done in [place], Labs at [facility], potassium 3.1, creatinine 1.92, bloodglucose [...] % (Auto) 9.1 % (.) 08/13/21 10:44 [place] % (Auto) 4.9 % (.) 08/13/21 10:44 Eos % (Auto) 0.1 % (.) 08/13/21 10:44 Baso % (Auto) 0.7 % (.) 08/13/21 10:44 Neut # (Auto) 9.1 x10E3/uL (1.8-7.7) H 08/13/21 10:44 Lymph # (Auto) 1.0 x10E3/uL (1.00-4.8) 08/13/21 10:44 [place] # (Auto) 0.5 x10E3/uL (0.0-0.8) 08/13/21 10:44 [...] Creatinine is 1.92, more than 1.6 at [place], likely secondary underlying dehydration, continue monitor BMP daily Replace potassium, give magnesium DVT prophylaxis PT OT Documented By: Alaina Arce MD 08/13/21 1150 Signed By: <Electronically signed by Alaina Arce MD> 08/13/21 1213 [facility] Work Phone: 1(966) 694-409002-07-2017 History of Past illness Narrative* Problem Noted Date Diagnosed Date Resolved Date Encounter for screening for malignant neoplasm of colon 03/27/2016 10/09/2022 documented as of this encounter (statuses as of 10/10/2022) [facility] History of Past illness Narrative* Problem Noted Date Diagnosed Date Resolved Date Encounter for screening for malignant neoplasm of colon 03/27/2016 10/09/2022 documented as of this encounter (statuses as of 10/12/2022) [facility] History of Past illness Narrative* Problem Noted Date Diagnosed Date Resolved Date Encounter for screening for malignant neoplasm of colon 03/27/2016 10/09/2022 documented as of this encounter (statuses as of 10/25/2022) [facility] History of Past illness Narrative* Problem Noted Date Diagnosed Date Resolved Date Encounter for screening for malignant neoplasm of colon 03/27/2016 10/09/2022 documented as of this encounter (statuses as of 10/27/2022) [facility] History of Past illness Narrative* Problem Noted Date Diagnosed Date Resolved Date Encounter for screening for malignant neoplasm of colon 03/27/2016 10/09/2022 documented as of this encounter (statuses as of 10/30/2022) [facility] History general Narrative - Reported* Type Description Date Medical History hypercholesterolemia Medical History healthy Surgical History Uterine ablation 01/2010 Hospitalization History [facility] Other [id number] History general Narrative - Reported* Type Description Date Medical History hypercholesterolemia Medical History healthy Surgical History Uterine ablation 01/2010 Hospitalization History [facility] Hospitalization History uti and kidney failure 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[facility] Other Evaluation + Plan note No data available for this section [facility] evaluation + Plan note Future Appointments Appointment Date:05/30/2022 10:30:00 AM Scheduled Provider:TRUDY ADRIAN PA-C Location:[facility] Appointment Type:URO Procedure 30 min Appointment Date:06/06/2022 10:30:00 AM Scheduled Provider:TRUDY ADRIAN PA-C Location[facility] Appointment Type:URO Procedure 30 min Appointment Date:06/13/2022 10:30:00 AM Scheduled Provider:TRUDY ADRIAN PA-C Location:[facility] [place] Appointment Type:URO Procedure 30 min Appointment Date:06/14/2022 12:45:00 PM Scheduled Provider:Jamie BILLS MD Location[facility] Appointment Type:BADH New Patient Appointment Date:06/27/2022 10:30:00 AM Scheduled Provider:TRUDY ADRIAN PA-C Location:[facility] Appointment Type:URO Procedure 30 min Appointment Date:07/11/2022 10:30:00 AM Scheduled Provider:TRUDY ADRIAN PA-C Location:[facility] [place] Appointment Type:URO Procedure 30 min [facility] Evaluation + Plan note Future Appointments Appointment Date:06/13/2022 10:30:00 AM Scheduled Provider:TRUDY ADRIAN PA-C Location:[facility] [facility] [place] Appointment Type:URO Procedure 30 min Appointment Date:06/14/2022 12:45:00 PM Scheduled Provider:Jamie BILLS MD Location[facility] Appointment Type:BADH New Patient Appointment Date:06/27/2022 10:30:00 AM Scheduled Provider:TRUDY ADRIAN PA-C Location[facility] [place] Appointment Type:URO Procedure 30 min Appointment Date:07/11/2022 10:30:00 AM Scheduled Provider:TRUDY ADRIAN PA-C [facility]O Procedure 30 min [facility] Evaluation + Plan note Future Appointments Appointment Date:06/27/2022 10:30:00 AM Scheduled Provider:TRUDY ADRIAN PA-C Location[facility] [place] Appointment Type:URO Procedure 30 min Appointment Date:07/11/2022 10:30:00 AM Scheduled Provider:TRUDY ADRIAN PA-C Location:[facility] [place] Appointment Type:URO Procedure 30 min Appointment Date:08/01/2022 08:30:00 AM Scheduled Provider:TRUDY ADRIAN PA-C Location:[facility] [place] Appointment Type:URO Procedure 30 min [facility] Evaluation note* Diagnosis Encounter for screening mammogram for malignant neoplasm of breast Other screening [facility]: [facility] note* Diagnosis Onset Date Resolution Status Abnormal EKG acute Altered mental status acute Delirium acute Elevated troponin acute Embolic stroke acute Essential hypertension acute Hyperlipidemia acute Hypertensive urgency acute Pyelonephritis acute [facility] Work Phone: Evaluation note* Diagnosis Onset Date Resolution Status History of colon polyps acut e [facility] Work Phone: Evaluation noteNo [facility] [employer] Other Evaluation note* Diagnosis Stage 3b chronic kidney disease (HCC)- Primary Hypertension, unspecified type Orthostatic hypotension Alkalosis Hypercholesteremia Pure hypercholesterolemia [facility] Diagnosis Screening for genitourinary condition Screening for other and unspecified genitourinary condition [facility] Diagnosis Screening for genitourinary condition Screening for other and unspecified genitourinary condition documented [facility] Diagnosis Onset Date Resolution Status Acute hypoxic respiratory failure acute CKD (chronic kidney disease) stage 3, GFR 30-59 ml/min acute Community acquired pneumonia acute Hypertension acute Shortness of breath acute [facility] Work Phone: Evaluation note* Diagnosis Onset Date Resolution Status Acute hypoxic respiratory failure acute Community acquired pneumonia acute Shortness of breath resolved [facility] Work Phone: History of Present illness [...] will be performed in the near future. -[facility] 250 DO Work Phone: History of Present [...] will be performed in the near future. [facility] Work Phone: History of Present illness Narrative* [...] will be performed in the near future. [facility] Work Phone: History of Present illness NarrativePatient returns in follow-up for problems as before. Because of her complaints of claudication and chest discomfort associated with recent hospitalization (urinary tract infection, sepsis, troponin elevation) she underwent stress testing with isotope imaging. It was normal. Additionally because of claudication symptomatology we did CHAUR and this also was normal. Because of [...] to her she follow-up with primary care henceforth.-[facility] [place] 250 DO Work Phone: [facility] Work Phone: [facility] Work Phone: [facility] Work Phone: Hospital Discharge instructions [...] if you have any problems. -Office number [phone] Memorial Hospital Work Phone: Hospital Discharge instructions No data available for this section [facility] Discharge instructions Additional [...] smoking -Continue oxygen at 1L NC with exertionTrumbull Memorial Hospital Work Phone: Progress note Author Marquez Beal [facility] August 17, 2021 1:47pm Note Date/Time August 17, 2021 1:47 pm [facility] [address] [place], [place] [id number] Cardiology Progress Note Signed Patient: Deysi Hernandez MR#: [id number] : 1960 Acct:[id number] Age/Sex: 61 / F Adm Date: 2 Loc: Room: [address] [place] [address] Type : ADM IN Attending Dr: Ricky [...] % (Auto) 63.6 Lymph % (Auto) 23.7 [place] % (Auto) 10.2 Eos % (Auto) 1.8 Baso % (Auto) 0.7 Neut # (Auto) 6.3 Lymph # (Auto) 2.4 [place] # (Auto) 1.0 H Eos # (Auto) [...] signed by MD Marquez Beal> 08/17/21 1347 [facility] Work Phone: Progress note No data available for this section [facility] reason for referral (narrative)* Diagnostic Procedure Only (Routine) - Pending Review Specialty Diagnoses / Procedures Referred By Mil t Referred To Contact US IMAGING Diagnoses Stage 3b chronic kidney disease (HCC) Procedures US KIDNEY/BLADDER US RETROPERITONEAL REAL TIME W/[place] [address] [place] [address] Us Imaging Referral ID Status Reason Start Date Expiration Date Visits Requested Visits Authorized [id number] Pending Review Auto-Generat ed Referral 08/09/2022 09/08/2023 1 1 [facility] Summary Purpose Family History No Family [...] Complaint DEYSI HERNANDEZ is being seen for [facility] D/C 603.DEYSI HERNANDEZ is being seen for [facility] [place] [facility] D/C 603.DEYSI HERNANDEZ is being seen for [facility] [place] [facility] D/C 603.* Results: [...] REFERRAL W OR WO CAD BILATERAL BERTA KAYRA DIGITAL SCREEN SELF REFERRAL W OR WO CAD BILATERAL Alexandr Amin MD [address] [facility] [address] [place] [id number] Reason Comments Consult Reason Comments Follow Up Reason Comments Patient Question INFORMATION SOURCE (unrecogn ized section and content) DATE CREATED AUTHOR 12/17/2020 [facility] DATE CREATED AUTHOR AUTHOR'S ORGANIZ ATION 01/27/2022 [facility] DATE CREATED AUTHOR AUTHOR'S ORGANIZ ATION 03/06/2022 [facility] DATE CREATED AUTHOR AUTHOR'S ORGANIZ ATION 07/03/2022 [facility] DATE CREATED AUTHOR AUTHOR'S ORGANIZ ATION 08/28/2022 [facility] DATE CREATED AUTHOR AUTHOR'S ORGANIZ ATION 10/30/2022 [facility] DATE CREATED AUTHOR AUTHOR'S ORGANIZ ATION 03/31/2023 [facility] DATE CREATED AUTHOR AUTHOR'S ORGANIZ ATION 08/13/2023 [facility] DATE CREATED AUTHOR AUTHOR'S ORGANIZ ATION 09/06/2023 [facility] DATE CREATED AUTHOR AUTHOR'S ORGANIZ ATION 09/07/2023 [facility] Lab Assistant Teams (unrecognized sec tion and content) Team Status: Active Member Role Status Dates PHYSICIAN NO FAMILY Primary Care Provider Active ALVA Rose-BC Attending Provider Active Team Status: Inactive Member [...] NO FAMILY Primary Care Provider Active Linn R Missler , CUSTOMER RETENTION REPRESENTATIVE Attending Provider Active Team Status: Inactive Member Role Status Dates PHYSICIAN NO FAMILY Primary Care Provider Active ALVA Rose- Attending Provider Active Team Status: Inactive Member Role Status Dates Shaikh Donna MD Primary Care Provider Active Marquez Beal MD Attending Provider Active Team Status: Active Member Role Status Dates Shaikh Donna MD Primary Care Provider Active Team Status: Inactive Member Role Status Dates Shaikh Donna MD Primary Care Provider Active Kevyn Sharma MD Attending Provider Active Mechanical Equipment Test 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 [address] PCP - General Primary Care 08/09/22 Mechanical Equipment Test Engineer Relationship Specialty Start Date End Date Shaikh Thompson MD [address] [place] [place] [address] PCP - General Primary Care 08/09/22 Mechanical Equipment Test 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 [address] PCP - General Primary Care 08/09/22 Mechanical Equipment Test Engineer Relationship Specialty Start Date End Date Shaikh Thompson MD [address] [place] [address] PCP - General Primary Care 08/09/22 Mechanical Equipment Test Engineer Relationship Specialty Start Date End Date Shaikh Thompson MD [address] [place] [address] PCP - General Primary Care 08/09/22 Mechanical Equipment Test Engineer Relationship Specialty Start Date End Date Shaikh Thompson MD [address] [place] [address] PCP - General Primary Care 08/09/22 Team [...] or prosecute any alcohol or drug abuse patient.[facility] the event this information is protected by the Federal Confidentiality of Alcohol and Drug Abuse Patient Records regulations: The Federal rules restrict any use of the information to criminally investigate or prosecute any alcohol or drug abuse patient.[facility] Hospital[facility] the event this information is protected by the Federal Confidentiality of Alcohol and Drug Abuse Patient Records regulations: The Federal rules restrict any use of the information to criminally investigate or prosecute any alcohol or drug abuse patient.[facility] Hospital[facility] the event this information is protected by the Federal Confidentiality of Alcohol and Drug Abuse Patient Records regulations: The Federal rules restrict any use of the information to criminally investigate or prosecute any alcohol or drug abuse patient.[facility] Hospital[facility] the event this information is protected by the Federal Confidentiality of Alcohol and Drug Abuse Patient Records regulations: The Federal rules restrict any use of the information to criminally investigate or prosecute any alcohol or drug abuse patient.[facility] HospitalIn the event this information is protected by the Federal Confidentiality of Alcohol and Drug Abuse Patient Records regulations: The Federal rules restrict any use of the information to criminally investigate or prosecute any alcohol or drug abuse patient.[facility] HospitalIn the event this information is protected by the Federal Confidentiality of Alcohol and Drug Abuse Patient Records regulations: The Federal rules restrict any use of the information to criminally investigate or prosecute any alcohol or drug abuse patient.[facility] FOR RECORDS PERTAINING TO PATIENTS WHO [...] BE BASED ON THE PRIMARY CLINICAL RECORDS. [facility] [employer] [facility]. provides no warranty or guarantee of the accuracy or completeness of information in this document.
[2023-10-11 09:42] LABS: Basophils Absolute Auto 0.1 10^3/uL (0.0-0.1); Basophils Percent Auto 1.5 % (0.2-2.0); Eosinophils Absolute Auto 0.6 10^3/uL (0.0-0.7); Eosinophils Percent Auto 6.5 % (0.9-7.0); Hematocrit 46.8 % (36.0-48.0); Hemoglobin 15.5 g/dL (12.0-16.0); Immature Granulocytes Abs Auto 0.01 10^3/uL (0.00-0.03); Immature Granulocytes Pct Auto 0.1 % (0.0-0.5); Lymphocytes Absolute Auto 2.4 10^3/uL (1.2-3.8); Lymphocytes Percent Auto 26.4 % (20.5-60.0); Mean Corpuscular HGB Conc 33.1 g/dL (29.9-35.2); Mean Corpuscular Hemoglobin 30.6 pg (26.7-34.0); Mean Corpuscular Volume 92.5 fL (81.0-99.0); Mean Platelet Volume 9.5 fL (9.5-13.5); Monocytes Absolute Auto 0.9 10^3/uL (0.3-0.8); Monocytes Percent Auto 9.9 % (1.7-12.0); Neutrophils Percent Auto 55.6 % (43.0-75.0); Platelet Count 202 10^3/uL (150-450); Red Blood Count 5.06 10^6/uL (4.20-5.40); Red Cell Distribution Width 13.3 % (11.0-15.0); White Blood Count 9.1 10^3/uL (4.0-11.0)
[2023-10-11 11:36] LABS: Albumin Level 3.6 g/dL (3.4-5.0); Anion Gap 13.2; BUN Creatinine Ratio 15.8; Calcium 9.2 mg/dL (8.5-10.1); Carbon Dioxide 25.4 mmol/L (21.0-32.0); Chloride 106 mmol/L (98-107); Estimated GFR (African America 47 (>=60); Estimated GFR (Non-African Ame 39 (>=60); Glucose 100 mg/dL (74-106); Potassium 4.6 mmol/L (3.5-5.1); Sodium 140 mmol/L (136-145)
[2023-10-12 14:11] LABS: PTH, Intact 47 pg/mL (15-65)
== END 2023-10-11 08:52 | disposition home or self-care (01) ==
PROVIDERS: Internal Medicine
DX: N18.32 Chronic kidney disease, stage 3b (principal)
CPT/HCPCS: 36415; 80048; 81001; 82042; 82043; 82306; 82570; 83970; 85025

== ENCOUNTER 2023-11-09 10:12 | Outpatient (OUT) | payer OTHER, SELFPAY ==
--- OUTSIDE RECORDS SUMMARY | 2023-11-09 10:19 | XMS_ITS | CCD ---
Author Organization [facility] Care Team Providers Care Dye House Helper Name Role Phone Unavailable Primary Care Provider Unavailabl e ALEXANDR AMIN S Referring Unavailable NO FAMILY, PHYSICIAN Primary Care Provider Unava MD Alaina Hernandez Admit Provider MD Marquez Beal Referring Provider DO Rober Wyatt Other Provider DO Ricky Reynoso Attending Provider [phone] ALVA Hamm- Janet Attending Provider [phone] DARVIN Byrne Attending Provider [phone] Linn Byrne Unavailable Shaikh Thompson Unavailable Unavailable [...] Unavailable Shaikh Thompson MD Primary Care Provider [phone] SHARAKOVA DEBRA Referring Un[facility]UN[facility] Primary Care Unavailable [facility] Referring Unavailable [facility] DUNBAR Primary Care Unavailable Unavailable Unavailable GURMEET OJEDA Attending Unavailable [facility], [facility] Primary Care Unavailable GURMEET OJEDA Attending Unavailable DONNA, DUNBAR Referring Unavailable CHARLEE THOMPSONIKH Primary Care Unavailable MD Nick Thompson Primary Care Provider [phone] MD Jacques East Admit Provider MD Jacques East Attending Provider [phone] MD Marquez Beal Attending Provider Jacques East Admitting Unavailable Jacques East Attending Unavailable Donna, [facility] Primary Care Unavailable Marquez Beal Admitting Unavail able Marquez Beal Attending Unavail able [facility] Primary Care Unavailable DONNA, DUNBAR Attending Unavailable DONNA, DUNBAR Attending Unavailable ROSIE BLANCHARD Attending Unavailable ROSIE BLANCHARD Attending Unavailable DONNA, DUNBAR Attending Unavailable DONNA, DUNBAR Attending Unavailable DONNA, DUNBAR Attending Unavailable Dereck GROVES Attending Unavailable Gabby De Oliveira H Attending Unavailable Jaxson Johnson Attending Unavailable Damion Cheek Attending Un[facility] Primary Care Unavailable TRUDY ADRIAN Attending Unavailable TRUDY ADRIAN Attending Unavailable Damion Cheek Admitting Unavailable Damion Cheek Attending Unavailable [facility] Primary Care Unavailable Jaxson Johnson Admitting Unavailable Jaxson Johnson Attending Unavailable MARQUEZ BEAL Attending Unavailable [facility] Primary Care Unavailable Allergies Allergy Classification Reported Allergen(s) Allergy Type Date of Onset Reaction(s) Facility (20 sources) Codeine; Translations: [CODEINE] Drug Allergy 5 Swelling, Swelling (finding) [facility] (1 source) Codeine Drug Allergy 2 [facility] Repository Medications Current Medications Medication Drug Class(es) [...] day(s), # 14 cap(s), Refills(s) 0, Pharmacy: [facility]/pharmacy #[id number], 163, cm, 02/10/23 14:52:00 EST, Height/Length [...] day(s), # 21 cap(s), Refills(s) 0, Pharmacy: [facility]/pharmacy #[id number], 163, cm, 10/15/22 17:40:00 EDT, Height/Length [...] Daily, # 30 cap(s), Refills(s) 2, Pharmacy: [facility] [id number], 163, cm, 06/14/22 13:00:00 EDT, Height/Length Dosing, [...] day(s), # 15 tab(s), Refills(s) 0, Pharmacy: [facility]/pharmacy #[id number], 163, cm, 02/10/23 14:52:00 EST, Height/Length [...] [Catalytic activity/Vol] 20 U/L Normal [facility] Comment on above: Order Comment: PT FA STED 121 HOURS Performed By: #### A ST, LIPID, BMP #### [facility] [address] [place] [id number] [place] Aspartate aminotransferase [ Enzymatic activity/volume] in Serum or PlasmaOrdered By: Marquez Beal on 03-12-2023 AST [Catalytic activity/Vol] 20 U/L [address] Basic Metabolic Panelon 02-19 Anion gap [Moles/Vol] 8.4 mmol/L Normal 6.0-15.0 [facility] Comment on above: Order Comment: PT FA STED 121 HOURS Performed By: #### A ST, LIPID, BMP #### [facility] [address] [place] [address] [place] Calcium [Mass/Vol] 9.8 mg/dL Normal 8.6-10.[address] [facility] Comment on above: Order Comment: PT FA STED 121 HOURS Performed By: #### A ST, LIPID, BMP #### [facility] [address] [place] [address] [place] Chloride [Moles/Vol] 108 mmol/L High 98-107 [facility] Comment on above: Order Comment: PT FA STED 121 HOURS Performed By: #### A ST, LIPID, BMP #### [facility] [address] [place] [id number] [place] CO2 [Moles/Vol] 30.0 mmol/L Normal 21.0-31.0 [facility] Comment on above: Order Comment: PT FA STED 121 HOURS Performed By: #### A ST, LIPID, BMP #### [facility] [address] [place] [id number] [place] Creatinine [Mass/Vol] 1.39 mg/dL High 0.60-1.20 [facility] Comment on above: Order Comment: PT FA STED 121 HOURS Performed By: #### A ST, LIPID, BMP #### [facility] [address] [place] [address] [place] GFR/1.73 sq M.predicted MDRD (S/P/Bld) [Vol rate/Area] 43.442 mL/min/{1.73_m2} Normal [facility] Comment on above: Order Comment: PT FA STED 121 HOURS Performed By: #### A ST, LIPID, BMP #### [facility] [address] [place] [address] [place] Glucose [Mass/Vol] 93 mg/dL Normal 70-[address] [facility] Comment on above: Order Comment: PT FA STED 121 HOURS Result Comment: [place] Glucose Reference Range is dependent on time and content of last meal. Glucose of more than 200 mg/dL in a nonstressed, ambulatory subject supports the diagnosis of Diabetes Mellitus. ADA recommended reference range Performed By: #### A ST, LIPID, BMP #### [facility] [address] [place] [id number] [place] Potassium [Moles/Vol] 5.4 mmol/L High 3.5-5.1 [facility] Comment on above: Order Comment: PT FA STED 121 HOURS Performed By: #### A ST, LIPID, BMP #### [facility] [address] [place] [id number] [place] Sodium [Moles/Vol] 141 mmol/L Normal 136-[address] [facility] Comment on above: Order Comment: PT FA STED 121 HOURS Performed By: #### A ST, LIPID, BMP #### [facility] [address] [place] [address] [place] Urea nitrogen [Mass/Vol] 18 mg/dL Normal 7-25 [facility] Comment on above: Order Comment: PT FA STED 121 HOURS Performed By: #### A ST, LIPID, BMP #### [facility] [address] [place] [id number] [place] Calcium [Mass/volume] in Ser um or PlasmaOrdered By: Marquez Beal on 03-12-2023 Calcium [Mass/Vol] 9.8 mg/dL 8.6-10.[address] [facility] Carbon dioxide, total [Moles /volume] in Serum or PlasmaOrdered By: Marquez Beal on 03-12-2023 CO2 [Moles/Vol] 30.0 mmol/L 21.0-31.0 [facility] Chloride [Moles/volume] in S oralia or PlasmaOrdered By: Marquez Beal on 03-12-2023 Chloride [Moles/Vol] 108 mmol/L 98-107 [facility] Cholesterol [Mass/volume] in Serum or PlasmaOrdered By: Marquez Beal on 03-12-2023 Cholesterol [Mass/Vol] 171 mg/dL 140-200 [facility] Comment on above: Chol less than 200 m g/dl low riskChol 201-239 mg/dl borderline riskChol 240 mg/dl and greater high risk Cholesterol in LDL Calc [Mas s/Vol]Ordered By: Marquez Beal on 03-12-2023 Cholesterol in LDL [Mass/Vol] 93 mg/dL 0-100 [facility] Comment on above: LDL ATP III CLASSIFI CATIONLDL less than 100 mg/dL OptimalLDL 100-129 mg/dL Near or above optimalLDL 130-159 mg/dL Borderline highLDL 160-189 mg/dL HighLDL greater than 189 mg/dL Very high Cholesterol in VLDL Calc [Ma ss/Vol]Ordered By: Marquez Beal on 03-12-2023 Cholesterol in VLDL [Mass/Vol] 33 mg/dL [facility] Creatinine [Mass/volume] in Serum or PlasmaOrdered By: Marquez Beal on 03-12-2023 Creatinine [Mass/Vol] 1.39 mg/dL 0.60-1.20 [facility] Glucose [Mass/volume] in Ser um or PlasmaOrdered By: Marquez Beal on 03-12-2023 Glucose [Mass/Vol] 93 mg/dL 70-[address] [facility] Comment on above: ADA recommended refe rence rangeRandom Glucose Reference Range is dependent on time and content of last meal. Glucose of more than 200 mg/dL in a nonstressed, ambulatory subject supports the diagnosis of Diabetes Mellitus. Lipid Panelon 03-12-2023 Cholesterol [Mass/Vol] 171 mg/dL Normal 140-200 [facility] Comment on above: Order Comment: PT FA STED 121 HOURS Result Comment: Chol less than 200 mg/dl low risk Chol 201-239 mg/dl borderline risk Chol 240 mg/dl and greater high risk Performed By: #### A ST, LIPID, BMP #### [facility] [address] [place] [address] [place] Cholesterol in HDL [Mass/Vol] 45 mg/dL Normal 23-92 [facility] Comment on above: Order Comment: PT FA STED 121 HOURS Result Comment: HDL CHOL ATP-III CLASSIFICATION Cardiovascular Risk HDL > or equal to 60 mg/dL LOW HDL < 40 mg/dL HIGH Performed By: #### A ST, LIPID, BMP #### [facility] [address] [place] [id number] [facility] Cholesterol.total/Chol esterol in HDL [Mass ratio] 3.8 {ratio} Normal <5.0 [facility] Comment on above: Order Comment: PT FA STED 121 HOURS Result Comment: PERF ORMED BY: [facility] [address] [place] [address] PATHOLOGIST HEALTH CENTER ASSISTANT JERAMY CALDWELL M.D. Performed By: #### A ST, LIPID, BMP #### [facility] [address] [place] [id number] [place] LDL Cholesterol,Calculated 93 mg/dL Normal 0-100 [facility] Comment on above: Order Comment: PT FA STED 121 HOURS Result Comment: LDL ATP III CLASSIFICATION LDL less than 100 mg/dL Optimal LDL 100-129 mg/dL Near or above optimal LDL 130-159 mg/dL Borderline high LDL 160-189 mg/dL High LDL greater than 189 mg/dL Very high Performed By: #### A ST, LIPID, BMP #### [facility] [address] [place] [address] [place] Triglyceride w/Reflex 165 mg/dL High 0-149 [facility] Comment on above: Order Comment: PT FA STED 121 HOURS Result Comment: TRIG ATP III CLASSIFICATION TRIG less than 150 mg/dL Normal TRIG 150-199 mg/dL Borderline high TRIG 200-500 mg/dL High TRIG greater than 500 mg/dL Very high Standard traceable to the Center for Disease Conrtrol and Prevention (CDC) test method. Performed By: #### A ST, LIPID, BMP #### [facility] [address] [place] [address] [place] VLDL CHOLESTEROL 33 mg/dL Normal [facility] Comment on above: Order Comment: PT FA STED 121 HOURS Performed By: #### A ST, LIPID, BMP #### [facility] [address] No Panel InformationOrdered By: Marquez Beal on 03-12-2023 Estimated GFR (CKD-EPI) 43.442 mL/Min [facility] Creatinine Clearance (Chem N/A [facility] Potassium [Moles/volume] in Serum or PlasmaOrdered By: Marquez Beal on 03-12-2023 Potassium [Moles/Vol] 5.4 mmol/L 3.5-5.1 [facility] Serum or plasma anion gap de terminationOrdered By: Marquez Beal on 03-12-2023 Anion gap [Moles/Vol] 8.4 mmol/L 6.0-15.0 [facility] Serum or plasma high density lipoprotein (HDL) cholesterol measurementOrdered By: Marquez Beal on 03-12-2023 Cholesterol in HDL [Mass/Vol] 45 mg/dL [facility] Comment on above: HDL CHOL ATP-III CLA SSIFICATION Cardiovascular RiskHDL > or equal to 60 mg/dL LOWHDL < 40 mg/dL HIGH Serum or plasma total choles terol/high density lipoprotein (HDL) cholesterol mass ratOrdered By: Marquez Beal on 03-12-2023 Cholesterol.total/Chol esterol in HDL [Mass ratio] 3.8 {ratio} <5.0 [facility] Sodium [Moles/volume] in Ser um or PlasmaOrdered By: Marquez Beal on 03-12-2023 Sodium [Moles/Vol] 141 mmol/L 136-[address] [facility] Triglyceride [Mass/volume] i n Serum or PlasmaOrdered By: Marquez Beal on 03-12-2023 Triglyceride [Mass/Vol] 165 mg/dL 0-149 [facility] Comment on above: TRIG ATP III CLASSIF ICATIONTRIG less than 150 mg/dL NormalTRIG 150-199 mg/dL Borderline highTRIG 200-500 mg/dL High TRIG greater than 500 mg/dL Very highStandard traceable to the Center for Disease Conrtrol and Prevention (CDC) test method. Urea nitrogen [Mass/volume] in Serum or PlasmaOrdered By: Marquez Beal on 03-12-2023 Urea nitrogen [Mass/Vol] 18 mg/dL 7-25 [facility] Basic Metabolic Panelon 12-2 Anion gap [Moles/Vol] 12.2 mmol/L Normal 6.0-15.0 [facility] Comment on above: Performed By: #### C BC, BMP ####[facility] [place] [id number] [facility] Calcium [Mass/Vol] 9.4 mg/dL Normal 8.6-10.[address] [facility] Comment on above: Performed By: #### C BC, BMP ####[facility] [place] [address] [facility] Chloride [Moles/Vol] 103 mmol/L Normal 98-107 [facility] Comment on above: Performed By: #### C BC, BMP ####[facility] [place] [address] [facility] CO2 [Moles/Vol] 26.2 mmol/L Normal 21.0-31.0 [facility] Comment on above: Performed By: #### C BC, BMP ####[facility] [place] [address] [facility] Creatinine [Mass/Vol] 1.35 mg/dL High 0.60-1.20 [facility] Comment on above: Performed By: #### C BC, BMP ####[facility] [place] [address] [place] Creatinine Clr Calc Pharmacy 40.59 [facility] Comment on above: Result Comment: PERF ORMED BY: [facility] [address] [place] [id number] PATHOLOGIST [facility] ASSISTANT JERAMY CALDWELL M.D. Performed By: #### C BC, BMP ####[address] [place] [address] [place] GFR/1.73 sq M.predicted MDRD (S/P/Bld) [Vol rate/Area] 44.991 mL/min/{1.73_m2} [facility] Comment on above: Performed By: #### C BC, BMP ####[address] [place] [address] [facility] Glucose [Mass/Vol] 136 mg/dL High 70-[address] [facility] Comment on above: Result Comment: [place] Glucose Reference Range is dependent on time and content of last meal. Glucose of more than 200 mg/dL in a nonstressed, ambulatory subject supports the diagnosis of Diabetes Mellitus. ADA recommended reference range Performed By: #### C BC, BMP ####[address] [place] [address] [place] Potassium [Moles/Vol] 5.4 mmol/L High 3.5-5.1 [facility] Comment on above: Performed By: #### C BC, BMP ####[address] [place] [address] [place] Sodium [Moles/Vol] 136 mmol/L Normal 136-[address] [facility] Comment on above: Performed By: #### C BC, BMP ####[address] [place] [address] [facility] Urea nitrogen [Mass/Vol] 33 mg/dL High 7-25 [facility] Comment on above: Performed By: #### C BC, BMP ####[facility] [place] [address] [facility] Basophils Auto (Bld) [#/Vol] Ordered By: Jacques Chirinosr on 02-14-2023 Basophils (Bld) [#/Vol] 0.0 10*3/uL 0.0-0.2 [facility] Basophils/100 WBC Auto (Bld) Ordered By: Obreinaldo Talbotomar on 02-14-2023 Basophils/100 WBC (Bld) 0.1 % . [facility] Calcium [Mass/volume] in Ser um or PlasmaOrdered By: Jacques Talbotomar on 02-14-2023 Calcium [Mass/Vol] 9.4 mg/dL 8.6-10.[address] [facility] Carbon dioxide, total [Moles /volume] in Serum or PlasmaOrdered By: Jacques Talbotomar on 02-14-2023 CO2 [Moles/Vol] 26.2 mmol/L 21.0-31.0 [facility] Chloride [Moles/volume] in S oralia or PlasmaOrdered By: Jacques Talbotomar on 02-14-2023 Chloride [Moles/Vol] 103 mmol/L 98-107 [facility] Complete Blood Count Auto Di ffon 02-14-2023 Basophils (Bld) [#/Vol] 0.0 10*3/uL Normal 0.0-0.2 [facility] Comment on above: Result Comment: PERF ORMED BY: [facility] [address] [place] [id number] PATHOLOGIST [facility] ASSISTANT JERAMY CALDWELL M.D. Performed By: #### C JUANITA, BMP ####[address] [place] [id number] [facility] Basophils/100 WBC (Bld) 0.1 % Normal . [facility] Comment on above: Performed By: #### C BC, BMP ####[address] [place] [id number] [facility] Eosinophils (Bld) [#/Vol] 0.0 10*3/uL Normal 0.0-0.45 [facility] Comment on above: Performed By: #### C BC, BMP ####[place] [id number] [facility] Eosinophils/100 WBC (Bld) 0.0 % Normal . [facility] Comment on above: Performed By: #### C BC, BMP ####[place] [id number] [facility] Erythrocyte distribution width (RBC) [Ratio] 14.6 % Normal 11.9-15.3 [facility] Comment on above: Performed By: #### C BC, BMP ####[place] [id number] [facility] Hematocrit (Bld) [Volume fraction] 44.5 % Normal 34.0-46.4 [facility] Comment on above: Performed By: #### C BC, BMP ####[place] [id number] [facility] Hemoglobin (Bld) [Mass/Vol] 15.1 g/dL Normal 11.8-15.4 [facility] Comment on above: Performed By: #### C JUANITA, BMP ####[place] [id number] [facility] Lymphocytes (Bld) [#/Vol] 1.0 10*3/uL Normal 1.00-4.8 [facility] Comment on above: Performed By: #### C BC, BMP ####[place] [id number] [facility] Lymphocytes/100 WBC (Bld) 7.6 % Normal . [facility] Comment on above: Performed By: #### C BC, BMP ####[address] [address] [facility] MCH (RBC) [Entitic mass] 30.6 pg Normal 24.7-34.3 [facility] Comment on above: Performed By: #### C BC, BMP ####[place] [id number] [facility] MCV (RBC) [Entitic vol] 90.4 fL Normal 80-100 [facility] Comment on above: Performed By: #### C BC, BMP ####[facility] [place] [address] [facility] Mean Corpuscular HGB Conc 33.9 g/dL Normal 32.0-35.0 [facility] Comment on above: Performed By: #### C BC, BMP ####[address] [place] [address] [facility] Monocytes (Bld) [#/Vol] 0.6 10*3/uL Normal 0.0-0.8 [facility] Comment on above: Performed By: #### C BC, BMP ####[address] [address] [facility] Monocytes/100 WBC (Bld) 4.7 % Normal . [facility] Comment on above: Performed By: #### C JUANITA, BMP ####[address] [address] [facility] Neutrophils (Bld) [#/Vol] 11.1 10*3/uL High 1.8-7.7 [facility] Comment on above: Performed By: #### C JUANITA, BMP ####[address] [address] [facility] Neutrophils/100 WBC (Bld) 87.6 % Normal . [facility] Comment on above: Performed By: #### C BC, BMP ####[address] [place] [address] [facility] NRBC% 0.0 /100{WBC} Normal 0-0.5 [facility] Comment on above: Performed By: #### C BC, BMP ####[address] [address] [facility] Platelet mean volume (Bld) [Entitic vol] 8.5 fL Normal 6.3-10.7 [facility] Comment on above: Performed By: #### C BC, BMP ####[address] [address] [facility] Platelets (Bld) [#/Vol] 220 10*3/uL Normal 150-450 [facility] Comment on above: Performed By: #### C BC, BMP ####[facility] [id number] [place] [address] [facility] RBC (Bld) [#/Vol] 4.92 10*6/uL Normal 3.60-5.00 [facility] Comment on above: Performed By: #### C BC, BMP ####[facility] [id number] [place] [address] [facility] WBC (Bld) [#/Vol] 12.7 10*3/uL High 3.8-11.6 [facility] Comment on above: Performed By: #### C , BMP ####[facility] [id number] [place] [id number] [facility] Creatinine [Mass/volume] in Serum or PlasmaOrdered By: Jacques East on 02-14-2023 Creatinine [Mass/Vol] 1.35 mg/dL 0.60-1.20 [facility] Eosinophils Auto (Bld) [#/Vo l]Ordered By: Jacques Talbotomar on 02-14-2023 Eosinophils (Bld) [#/Vol] 0.0 10*3/uL 0.0-0.45 [facility] Eosinophils/100 WBC Auto (Bl d)Ordered By: Obpatriciadaenrique Talbotomar on 02-14-2023 Eosinophils/100 WBC (Bld) 0.0 % . [facility] Erythrocyte distribution wid th Auto (RBC) [Ratio]Ordered By: Jacques Chirinosr on 02-14-2023 Erythrocyte distribution width (RBC) [Ratio] 14.6 % 11.9-15.3 [facility] Glucose [Mass/volume] in Ser um or PlasmaOrdered By: Jacques Talbotomar on 02-14-2023 Glucose [Mass/Vol] 136 mg/dL 70-[address] [facility] Comment on above: ADA recommended refe rence rangeRandom Glucose Reference Range is dependent on time and content of last meal. Glucose of more than 200 mg/dL in a nonstressed, ambulatory subject supports the diagnosis of Diabetes Mellitus. Hematocrit Auto (Bld) [Volum e fraction]Ordered By: Jacques Chirinosr on 02-14-2023 Hematocrit (Bld) [Volume fraction] 44.5 % 34.0-46.4 [facility] Hemoglobin [Mass/volume] in BloodOrdered By: Jacques Talbotomar on 02-14-2023 Hemoglobin (Bld) [Mass/Vol] 15.1 g/dL 11.8-15.4 [facility] Leukocytes [#/volume] correc elliot for nucleated erythrocytes in Blood by Automated counOrdered By: Obpatriciadaenrique Talbotomar on 02-14-2023 WBC corrected for nucl RBC Auto (Bld) [#/Vol] 12.7 10*3/uL 3.8-11.6 [facility] Lymphocytes Auto (Bld) [#/Vo l]Ordered By: Obpatriciadaenrique Talbotomar on 02-14-2023 Lymphocytes (Bld) [#/Vol] 1.0 10*3/uL 1.00-4.8 [facility] Lymphocytes/100 WBC Auto (Bl d)Ordered By: Obpatriciadaenrique Talbotomar on 02-14-2023 Lymphocytes/100 WBC (Bld) 7.6 % . [facility] MCH Auto (RBC) [Entitic mass ]Ordered By: Jacques Talbotomar on 02-14-2023 MCH (RBC) [Entitic mass] 30.6 pg 24.7-34.3 [facility] MCHC Auto (RBC) [Mass/Vol]Or dered By: Obpatriciadaenrique Talbotomar on 02-14-2023 MCHC (RBC) [Mass/Vol] 33.9 g/dL 32.0-35.0 [facility] MCV Auto (RBC) [Entitic vol] Ordered By: Obpatriciadaenrique Talbotomar on 02-14-2023 MCV (RBC) [Entitic vol] 90.4 fL 80-100 [facility] Monocytes Auto (Bld) [#/Vol] Ordered By: Obpatriciadah Antioneomar on 02-14-2023 Monocytes (Bld) [#/Vol] 0.6 10*3/uL 0.0-0.8 [facility] Monocytes/100 WBC Auto (Bld) Ordered By: Obpatriciadah Daromar on 12-28-2023 Monocytes/100 WBC (Bld) 4.7 % . [facility] Neutrophils Auto (Bld) [#/Vo l]Ordered By: Obreinaldo Talbotomar on 02-14-2023 Neutrophils (Bld) [#/Vol] 11.1 10*3/uL 1.8-7.7 [facility] Neutrophils/100 WBC Auto (Bl d)Ordered By: Obpatriciadaenrique Talbotomar on 02-14-2023 Neutrophils/100 WBC (Bld) 87.6 % . [facility] No Panel InformationOrdered By: Obreinaldo Talbotomar on 02-14-2023 Estimated GFR (CKD-EPI) 44.991 mL/Min [facility] Creatinine Clearance (Chem 40.59 [facility] Nucleated erythrocytes [Pres ence] in Blood by Automated countOrdered By: Jacques Talbotomar on 02-14-2023 Nucleated RBC Auto Ql (Bld) 0.0 /100{WBC} 0-0.5 [facility] Platelet mean volume Auto (B ld) [Entitic vol]Ordered By: Obreinaldo Talbotomar on 02-14-2023 Platelet mean volume (Bld) [Entitic vol] 8.5 fL 6.3-10.7 [facility] Platelets Auto (Bld) [#/Vol] Ordered By: Obreinaldo Talbotomar on 02-14-2023 Platelets (Bld) [#/Vol] 220 10*3/uL 150-450 [facility] Potassium [Moles/volume] in Serum or PlasmaOrdered By: Obpatriciadaenrique Talbotomar on 02-14-2023 Potassium [Moles/Vol] 5.4 mmol/L 3.5-5.1 [facility] RBC Auto (Bld) [#/Vol]Ordere d By: Obpatriciadah Antioneomar on 02-14-2023 RBC (Bld) [#/Vol] 4.92 10*6/uL 3.60-5.00 [facility] Serum or plasma anion gap de terminationOrdered By: Obpatriciadah Antioneomar on 02-14-2023 Anion gap [Moles/Vol] 12.2 mmol/L 6.0-15.0 [facility] Sodium [Moles/volume] in Ser um or PlasmaOrdered By: Obpatriciadaenrique Talbotomar on 02-14-2023 Sodium [Moles/Vol] 136 mmol/L 136-[address] [facility] Urea nitrogen [Mass/volume] in Serum or PlasmaOrdered By: Obpatriciadaenrique Talbotomar on 02-14-2023 Urea nitrogen [Mass/Vol] 33 mg/dL 7-25 [facility] WBC Auto (Bld) [#/Vol]Ordere d By: Obaydah Daromar on 02-14-2023 WBC (Bld) [#/Vol] 12.7 10*3/uL 3.8-11.6 [facility] Alanine aminotransferase [En zymatic activity/volume] in Serum or PlasmaOrdered By: Obreinaldo Talbotomar on 02-13-2023 ALT [Catalytic activity/Vol] 16 U/L 7-52 [facility] Albumin [Mass/volume] in Ser um or Plasma by Bromocresol green (BCG) dye binding methoOrdered By: Obpatriciadaenrique Talbotomar on 02-13-2023 Albumin BCG dye [Mass/Vol] 4.0 g/dL 3.5-5.7 [facility] Alkaline phosphatase [Enzyma tic activity/volume] in Serum or PlasmaOrdered By: Obpatriciadaenrique Talbotomar on 02-13-2023 ALP [Catalytic activity/Vol] 57 U/L 34-104 [facility] Aspartate aminotransferase [ Enzymatic activity/volume] in Serum or PlasmaOrdered By: Obpatriciadaenrique Talbotomar on 02-13-2023 AST [Catalytic activity/Vol] 22 U/L 13-39 [facility] Bilirubin.total [Mass/volume ] in Serum or PlasmaOrdered By: Obpatriciadaenrique Talbotomar on 02-13-2023 Bilirubin [Mass/Vol] 0.6 mg/dL 0.3-1.0 [facility] Complete Blood Count Auto Di ffon 02-13-2023 Basophils (Bld) [#/Vol] 0.0 10*3/uL Normal 0.0-0.2 [facility] Comment on above: Result Comment: PERF ORMED BY: [facility] [address] [place] [address] PATH[facility]IST [facility] ASSISTANT JERAMY CALDWELL M.D. Performed By: #### C BC MG, CMP ####[address] Basophils/100 WBC (Bld) 0.2 % Normal . [facility] Comment on above: Performed By: #### C BC MG, CMP ####[address] Eosinophils (Bld) [#/Vol] 0.0 10*3/uL Normal 0.0-0.45 [facility] Comment on above: Performed By: #### C BC MG, CMP ####[address] Eosinophils/100 WBC (Bld) 0.0 % Normal . [facility] Comment on above: Performed By: #### C BC MG, CMP ####[address] Erythrocyte distribution width (RBC) [Ratio] 14.4 % Normal 11.9-15.3 [facility] Comment on above: Performed By: #### C BC MG, CMP ####[address] Hematocrit (Bld) [Volume fraction] 43.2 % Normal 34.0-46.4 [facility] Comment on above: Performed By: #### C BC MG, CMP ####[address] Hemoglobin (Bld) [Mass/Vol] 14.6 g/dL Normal 11.8-15.4 [facility] Comment on above: Performed By: #### C BC, MG, CMP ####[address] Lymphocytes (Bld) [#/Vol] 2.7 10*3/uL Normal 1.00-4.8 [facility] Comment on above: Performed By: #### C BC, MG, CMP ####[address] Lymphocytes/100 WBC (Bld) 18.3 % Normal . [facility] Comment on above: Performed By: #### C JUANITA MG, CMP ####[address] MCH (RBC) [Entitic mass] 30.5 pg Normal 24.7-34.3 [facility] Comment on above: Performed By: #### C JUANITA MG, CMP ####[address] MCV (RBC) [Entitic vol] 90.1 fL Normal 80-100 [facility] Comment on above: Performed By: #### C JUANITA MG, CMP ####[address] Mean Corpuscular HGB Conc 33.8 g/dL Normal 32.0-35.0 [facility] Comment on above: Performed By: #### C JUANITA MG, CMP ####[address] Monocytes (Bld) [#/Vol] 1.2 10*3/uL High 0.0-0.8 [facility] Comment on above: Performed By: #### C JUANITA MG, CMP ####[address] Monocytes/100 WBC (Bld) 7.9 % Normal . [facility] Comment on above: Performed By: #### C JUANITA MG, CMP ####[address] Neutrophils (Bld) [#/Vol] 11.0 10*3/uL High 1.8-7.7 [facility] Comment on above: Performed By: #### C BC MG, CMP ####[place] [id number] [facility] Neutrophils/100 WBC (Bld) 73.6 % Normal . [facility] Comment on above: Performed By: #### C JUANITA MG, CMP ####[address] NRBC% 0.1 /100{WBC} Normal 0-0.5 [facility] Comment on above: Performed By: #### C BC, MG, CMP ####[address] Platelet mean volume (Bld) [Entitic vol] 7.8 fL Normal 6.3-10.7 [facility] Comment on above: Performed By: #### C BC, MG, CMP ####[place] [id number] [facility] Platelets (Bld) [#/Vol] 212 10*3/uL Normal 150-450 [facility] Comment on above: Performed By: #### C BC, MG, CMP ####[address] RBC (Bld) [#/Vol] 4.80 10*6/uL Normal 3.60-5.00 [facility] Comment on above: Performed By: #### C BC, MG, CMP ####[address] WBC (Bld) [#/Vol] 14.9 10*3/uL High 3.8-11.6 [facility] Comment on above: Performed By: #### C BC, MG, CMP ####[address] Comprehensive Metabolic Pane franco 02-13-2023 Albumin [Mass/Vol] 4.0 g/dL Normal 3.5-5.[address] [facility] Comment on above: Performed By: #### C BC, MG, CMP ####[place] [id number] [facility] Albumin/Globulin [Mass ratio] 1.6 {ratio} Normal [facility] Comment on above: Performed By: #### C BC, MG, CMP ####[address] ALP [Catalytic activity/Vol] 57 U/L Normal 34-104 [facility] Comment on above: Performed By: #### C BC MG, CMP ####[place] [id number] [place] [id number] [facility] ALT [Catalytic activity/Vol] 16 U/L Normal 7-52 [facility] Comment on above: Performed By: #### C BC MG, CMP ####[place] [id number] [facility] Anion gap [Moles/Vol] 9.4 mmol/L Normal 6.0-15.0 [facility] Comment on above: Performed By: #### C JUANITA MG, CMP ####[address] AST [Catalytic activity/Vol] 22 U/L Normal 13-39 [facility] Comment on above: Performed By: #### C BC MG, CMP ####[place] [id number] [facility] Bilirubin [Mass/Vol] 0.6 mg/dL Normal 0.3-1.0 [facility] Comment on above: Performed By: #### C BC MG, CMP ####[place] [id number] [facility] Calcium [Mass/Vol] 9.2 mg/dL Normal 8.6-10.[address] [facility] Comment on above: Performed By: #### C BC, MG, CMP ####[place] [id number] [facility] Chloride [Moles/Vol] 105 mmol/L Normal 98-107 [facility] Comment on above: Performed By: #### C BC MG, CMP ####[place] [id number] [facility] CO2 [Moles/Vol] 27.1 mmol/L Normal 21.0-31.0 [facility] Comment on above: Performed By: #### C BC, MG, CMP ####[place] [id number] [facility] Creatinine [Mass/Vol] 1.45 mg/dL High 0.60-1.20 [facility] Comment on above: Performed By: #### C BC, MG, CMP ####[place] [id number] [facility] Creatinine Clr Calc Pharmacy 37.90 [facility] Comment on above: Performed By: #### C BC, MG, CMP ####[address] GFR/1.73 sq M.predicted MDRD (S/P/Bld) [Vol rate/Area] 41.294 mL/min/{1.73_m2} [facility] Comment on above: Performed By: #### C BC, MG, CMP ####[address] Globulin (S) [Mass/Vol] 2.5 g/dL [facility] Comment on above: Performed By: #### C BC, MG, CMP ####[address] Glucose [Mass/Vol] 92 mg/dL Normal 70-[address] [facility] Comment on above: Result Comment: [place] Glucose Reference Range is dependent on time and content of last meal. Glucose of more than 200 mg/dL in a nonstressed, ambulatory subject supports the diagnosis of Diabetes Mellitus. ADA recommended reference range Performed By: #### C BC, MG, CMP ####[place] [id number] [facility] Potassium [Moles/Vol] 4.5 mmol/L Normal 3.5-5.1 [facility] Comment on above: Performed By: #### C BC, MG, CMP ####[place] [id number] [facility] Protein [Mass/Vol] 6.5 g/dL Normal 6.4-8.[address] [facility] Comment on above: Performed By: #### C BC, MG, CMP ####[place] [id number] [facility] Sodium [Moles/Vol] 137 mmol/L Normal 136-[address] [facility] Comment on above: Performed By: #### C BC, MG, CMP ####[place] [id number] [place] [id number] [facility] Urea nitrogen [Mass/Vol] 28 mg/dL High 7-25 [facility] Comment on above: Performed By: #### C BC, MG, CMP ####[facility] [place] [address] [facility] Globulin Calc (S) [Mass/Vol] Ordered By: Obpatriciadah Daromar on 02-13-2023 Globulin (S) [Mass/Vol] 2.5 g/dL [facility] Magnesiumon 02-13-2023 Magnesium [Mass/Vol] 1.8 mg/dL Low 1.9-2.7 [facility] Comment on above: Result Comment: PERF ORMED BY: [facility] [address] [place] [id number] PATHOLOGIST HE[facility]ENTER ASSISTANT JERAMY CALDWELL M.D. Performed By: #### C BC, MG, CMP ####[place] [id number] [place] [address] [facility] Magnesium [Mass/volume] in S oralia or PlasmaOrdered By: Obpatriciadah Daromar on 02-13-2023 Magnesium [Mass/Vol] 1.8 mg/dL 1.9-2.7 [facility] Protein [Mass/volume] in Ser um or PlasmaOrdered By: Obaydah Daromar on 02-13-2023 Protein [Mass/Vol] 6.5 g/dL 6.4-8.[address] [facility] Serum or plasma albumin/glob ulin mass ratioOrdered By: Obaydah Daromar on 02-13-2023 Albumin/Globulin [Mass ratio] 1.6 {ratio} [facility] Activated partial thrombopla stin time (aPTT) in platelet poor plasma by coagulation aOrdered By: Sally Valle on 02-12-2023 aPTT Coag (PPP) [Time] 25.6 s 25.1-36.5 [facility] Comment on above: A hematocrit value g reater than 55% may lead to inaccurate results in coagulation testing. Patients having hematocrit values >55% require a special collection tube for coagulation studies. Please contact the laboratory at [phone] for redraw instructions. Aerobic Cultureon 02-12-2023 Aerobic Culture Light Normal Respira tory Zoe 2 Days Gram Stain Result Rare Epithelial Cells 1+ White Blood Cells Rare Gram Positive Coccobacilli PERFORMED BY: [place] [id number] PATHOLOG[facility] ASSISTANT JERAMY CALDWELL M.D. Normal [facility] Comment on above: Performed By: #### A HANNAH, #### [address] Auth for Release of Medical Recordson 02-12-2023 Auth for Release of Medical Records [id number] Normal [facility] Automated erythrocytes count in urine sediment (number/area)Ordered By: Jacques East on 02-12-2023 RBC Auto (Urine sed) [#/Area] 1-2 [HPF] 0-4 [facility] Automated leukocytes count i n urine sediment (number/area)Ordered By: Jacques Chirinosr on 02-12-2023 WBC Auto (Urine sed) [#/Area] 3-4 [HPF] 0-4 [facility] Bilirubin Test strip Ql (U)O rdered By: Jacques East on 02-12-2023 Bilirubin Ql (U) Negative Negative [facility] C Urineon 02-12-2023 Bacteria identified Cx [...] Locations R1: This test was performed at: [facility], [address] [place] [address], [address] , [place], Normal [facility] Comment on above: Performed By: #### 2 [id number] ####[facility] [address] [place] [address] Coagulation Profileon 2022 aPTT Coag (Bld) [Time] 25.6 s Normal 25.1-36.5 [facility] Comment on above: Result Comment: A he matocrit value greater than 55% may lead to inaccurate results in coagulation testing. Patients having hematocrit values >55% require a special collection tube for coagulation studies. Please contact the laboratory at [phone] for redraw instructions. PERFORMED BY: [facility] [address] [facility] [place] [address] PATHOLOGIST HEALTH CENTER ASSISTANT JERAMY CALDWELL M.D. Performed By: #### C JUANITA, PP, CMP ####[place] [id number] [place] [address] [facility] INR Coag (PPP) [Relative time] 0.9 {INR} Normal [facility] Comment on above: Result Comment: INR Therapeutic [...] By: #### C BC, PP, CMP ####[address] [address] [facility] PT Coag (PPP) [Time] 10.9 s Normal 9.0-12.9 [facility] Comment on above: Result Comment: A he matocrit value greater than 55% may lead to inaccurate results in coagulation testing. Patients having hematocrit values >55% require a special collection tube for coagulation studies. Please contact the laboratory at [phone] for redraw instructions. Performed By: #### C BC, PP, CMP ####[place] [id number] [place] [address] [facility] Color Auto (U)Ordered By: Ob reinaldo East on 02-12-2023 Color (U) Yellow Yellow [facility] Complete Blood Count Auto Di ffon 02-12-2023 Basophils (Bld) [#/Vol] 0.0 10*3/uL Normal 0.0-0.2 [facility] Comment on above: Result Comment: PERF ORMED BY: [place] [address] PATHOLOGIST [facility] ASSISTANT JERAMY CALDWELL M.D. Performed By: #### C BC, PP, CMP #### [facility] [address] Basophils/100 WBC (Bld) 0.2 % Normal . [facility] Comment on above: Performed By: #### C BC, PP, CMP #### [facility] [address] Eosinophils (Bld) [#/Vol] 0.0 10*3/uL Normal 0.0-0.45 [facility] Comment on above: Performed By: #### C BC, PP, CMP #### [facility] [address] [place] [address] [place] Eosinophils/100 WBC (Bld) 0.0 % Normal . [facility] Comment on above: Performed By: #### C BC, PP, CMP #### [facility] [address] [place] [address] Erythrocyte distribution width (RBC) [Ratio] 14.6 % Normal 11.9-15.3 [facility] Comment on above: Performed By: #### C BC, PP, CMP #### [facility] [address] Hematocrit (Bld) [Volume fraction] 46.1 % Normal 34.0-46.4 [facility] Comment on above: Performed By: #### C BC, PP, CMP #### [facility] [address] [place] [address] Hemoglobin (Bld) [Mass/Vol] 15.6 g/dL High 11.8-15.4 [facility] Comment on above: Performed By: #### C BC, PP, CMP #### [facility] [address] [place] [address] [place] Lymphocytes (Bld) [#/Vol] 0.6 10*3/uL Low 1.00-4.8 [facility] Comment on above: Performed By: #### C BC, PP, CMP #### [facility] [address] [place] [address] [place] Lymphocytes/100 WBC (Bld) 4.0 % Normal . [facility] Comment on above: Performed By: #### C BC, PP, CMP #### [facility] [address] MCH (RBC) [Entitic mass] 30.6 pg Normal 24.7-34.3 [facility] Comment on above: Performed By: #### C BC, PP, CMP #### [facility] [address] MCV (RBC) [Entitic vol] 90.6 fL Normal 80-100 [facility] Comment on above: Performed By: #### C BC, PP, CMP #### [facility] [address] Mean Corpuscular HGB Conc 33.8 g/dL Normal 32.0-35.0 [facility] Comment on above: Performed By: #### C BC, PP, CMP #### [facility] [address] [place] [address] [place] Monocytes (Bld) [#/Vol] 0.3 10*3/uL Normal 0.0-0.8 [facility] Comment on above: Performed By: #### C BC, PP, CMP #### [facility] [address] [place] [address] [place] Monocytes/100 WBC (Bld) 1.8 % Normal . [facility] Comment on above: Performed By: #### C BC, PP, CMP #### [facility] [address] [place] [address] [place] Neutrophils (Bld) [#/Vol] 14.1 10*3/uL High 1.8-7.7 [facility] Comment on above: Performed By: #### C BC, PP, CMP #### [address] Neutrophils/100 WBC (Bld) 94.0 % Normal . [facility] Comment on above: Performed By: #### C BC, PP, CMP #### [address] NRBC% 0.1 /100{WBC} Normal 0-0.5 [facility] Comment on above: Performed By: #### C BC, PP, CMP #### [address] Platelet mean volume (Bld) [Entitic vol] 7.9 fL Normal 6.3-10.7 [facility] Comment on above: Performed By: #### C BC, PP, CMP #### [address] Platelets (Bld) [#/Vol] 236 10*3/uL Normal 150-450 [facility] Comment on above: Performed By: #### C BC, PP, CMP #### [address] RBC (Bld) [#/Vol] 5.09 10*6/uL High 3.60-5.00 [facility] Comment on above: Performed By: #### C BC, PP, CMP #### [address] WBC (Bld) [#/Vol] 15.0 10*3/uL High 3.8-11.6 [facility] Comment on above: Performed By: #### C BC, PP, CMP #### [address] Comprehensive Metabolic Pane franco 02-12-2023 Albumin [Mass/Vol] 4.6 g/dL Normal 3.5-5.[address] [facility] Comment on above: Performed By: #### C BC, PP, CMP #### [place] [address] [place] Albumin/Globulin [Mass ratio] 1.5 {ratio} Normal [facility] Comment on above: Performed By: #### C JUANITA PP, CMP #### [facility] [address] ALP [Catalytic activity/Vol] 70 U/L Normal 34-104 [facility] Comment on above: Performed By: #### C JUANITA, PP, CMP #### [address] ALT [Catalytic activity/Vol] 19 U/L Normal 7-52 [facility] Comment on above: Performed By: #### C JUANITA PP, CMP #### [address] Anion gap [Moles/Vol] Not performed Normal 6.0-15.0 [facility] Comment on above: Performed By: #### C JUANITA PP, CMP #### [address] AST [Catalytic activity/Vol] 29 U/L Normal 13-39 [facility] Comment on above: Performed By: #### C JUANITA PP, CMP #### [address] Bilirubin [Mass/Vol] 0.5 mg/dL Normal 0.3-1.0 [facility] Comment on above: Performed By: #### C JUANITA PP, CMP #### [address] Calcium [Mass/Vol] 9.9 mg/dL Normal 8.6-10.[address] [facility] Comment on above: Performed By: #### C JUANITA, PP, CMP #### [facility] [address] [place] [address] Chloride [Moles/Vol] 106 mmol/L Normal 98-107 [facility] Comment on above: Performed By: #### C BC, PP, CMP #### [address] CO2 [Moles/Vol] 20.4 mmol/L Low 21.0-31.0 [facility] Comment on above: Performed By: #### C BC, PP, CMP #### [facility] [address] Creatinine [Mass/Vol] 1.65 mg/dL High 0.60-1.20 [facility] Comment on above: Performed By: #### C BC, PP, CMP #### [facility] [address] Creatinine Clr Calc Pharmacy 34.03 [facility] Comment on above: Result Comment: PERF ORMED BY: [place] [address] PATHOLOGIST [facility] ASSISTANT JERAMY CALDWELL M.D. Performed By: #### C BC, PP, CMP #### [facility] [address] GFR/1.73 sq M.predicted MDRD (S/P/Bld) [Vol rate/Area] 35.363 mL/min/{1.73_m2} [facility] Comment on above: Performed By: #### C BC, PP, CMP #### [facility] [address] Globulin (S) [Mass/Vol] 3.1 g/dL [facility] Comment on above: Performed By: #### C BC, PP, CMP #### [facility] [address] Glucose [Mass/Vol] 157 mg/dL High 70-[address] [facility] Comment on above: Result Comment: [place] Glucose Reference Range is dependent on time and content of last meal. Glucose of more than 200 mg/dL in a nonstressed, ambulatory subject supports the diagnosis of Diabetes Mellitus. ADA recommended reference range Performed By: #### C BC, PP, CMP #### [facility] [address] Potassium Normal 3.5-5.1 [facility] Comment on above: Result Comment: Spec imen hemolyzed, redraw requested Performed By: #### C BC, PP, CMP #### [facility] [address] [place] [id number] [place] Protein [Mass/Vol] 7.7 g/dL Normal 6.4-8.[address] [facility] Comment on above: Performed By: #### C BC, PP, CMP #### [facility] [address] Sodium [Moles/Vol] 140 mmol/L Normal 136-[address] [facility] Comment on above: Performed By: #### C BC, PP, CMP #### [facility] [address] Urea nitrogen [Mass/Vol] 32 mg/dL High 09-11 [facility] Comment on above: Performed By: #### C BC, PP, CMP #### [facility] [address] [place] [address] [place] Dipstick and Microscopicon 1 04-15-2022 Appearance (U) Clear Normal Clear [facility] Comment on above: Order Comment: Name Collection Type:: Clean-Voided Midstream Performed By: #### A DDONUAPLUS #### [facility] [address] [place] [address] [place] Bacteria,Urine None Seen Normal None Seen [facility] Comment on above: Order Comment: Name Collection Type:: Clean-Voided Midstream Performed By: #### A DDONUAPLUS #### [facility] [address] [place] [address] [place] Bilirubin,Urine Negative Normal Negative [facility] Comment on above: Order Comment: Name Collection Type:: Clean-Voided Midstream Performed By: #### A DDONUAPLUS #### [facility] [address] [place], [place] [id number] [place] Color (U) Yellow Normal Yellow [facility] Comment on above: Order Comment: Name Collection Type:: Clean-Voided Midstream Performed By: #### A DDONUAPLUS #### [facility] [address] [place] [address] [place] Glucose Ql (U) Normal Normal Normal [facility] Comment on above: Order Comment: Name Collection Type:: Clean-Voided Midstream Performed By: #### A DDONUAPLUS #### [place] [address] [place] Hyaline Casts,Urine 0-8 Normal 0-8 [facility] Comment on above: Order Comment: Name Collection Type:: Clean-Voided Midstream Result Comment: PERF ORMED BY: [place] [address] PATHOLOGIST [facility] ASSISTANT JERAMY CALDWELL M.D. Performed By: #### A DDONUAPLUS #### [address] Ketones Ql (U) Negative Normal Negative [facility] Comment on above: Order Comment: Name Collection Type:: Clean-Voided Midstream Performed By: #### A DDONUAPLUS #### [address] Leukocyte esterase Test strip Ql (U) 1+ High Negative [facility] Comment on above: Order Comment: Name Collection Type:: Clean-Voided Midstream Performed By: #### A DDONUAPLUS #### [place] [address] [place] Nitrite,Urine Negative Normal Negative [facility] Comment on above: Order Comment: Name Collection Type:: Clean-Voided Midstream Performed By: #### A DDONUAPLUS #### [place] [address] [place] Occult Blood,Urine Negative Normal Negative [facility] Comment on above: Order Comment: Name Collection Type:: Clean-Voided Midstream Result Comment: PERF ORMED BY: [place] [address] PATHOLOGIST HEALTH CENTER ASSISTANT JERAMY CALDWELL M.D. Performed By: #### A DDONUAPLUS #### [place] [address] [place] pH (U) 5.0 [pH] Normal 5.0-9.0 [facility] Comment on above: Order Comment: Name Collection Type:: Clean-Voided Midstream Performed By: #### A DDONUAPLUS #### [place] [address] [place] Protein,Urine Negative Normal Negative [facility] Comment on above: Order Comment: Name Collection Type:: Clean-Voided Midstream Performed By: #### A DDONUAPLUS #### [place] [address] [place] RBC,Urine 1-2 Normal 0-4 [facility] Comment on above: Order Comment: Name Collection Type:: Clean-Voided Midstream Performed By: #### A DDONUAPLUS #### [place] [address] [place] Specificy Cunningham,Urine 1.017 Normal 1.001-1.03 0 [facility] Comment on above: Order Comment: Name Collection Type:: Clean-Voided Midstream Performed By: #### A DDONUAPLUS #### [place] [address] [place] Squamous Epithelial Cell,Urine 0-1 Normal 0-2 [facility] Comment on above: Order Comment: Name Collection Type:: Clean-Voided Midstream Performed By: #### A DDONUAPLUS #### [place] [address] [place] Urobilinogen,Urine Normal Normal Normal [facility] Comment on above: Order Comment: Name Collection Type:: Clean-Voided Midstream Performed By: #### A DDONUAPLUS #### [facility] [address] [place] [address] [place] WBC,Urine 3-4 Normal 0-4 [facility] Comment on above: Order Comment: Name Collection Type:: Clean-Voided Midstream Performed By: #### A DDONUAPLUS #### [place] [address] [place] ECG 12 lead ECGon 02-12-2023 ECG 12 lead ECG [facility] Main [place] [address] [place] [address] Electrocardiograph Report Signed Patient: Deysi Hernandez MR#: [id number] : 1960 Acct:[id number] Age/Sex: 62 / F ADM Date: 02/12/23 Loc: Room: [address] [place] [address] Type: ADM IN Attending Dr: Jacques East [...] Signed By Bj Bay DO 02/13 1109 [facility] Gram Stainon 02-12-2023 Microscopic observation Gram stain Nom (Unsp spec) Gram Stain Result Rare Epithelial Cells 1+ White Blood Cells Rare Gram Positive Coccobacilli PERFORMED BY: [place] [address] PATHOLOGIST HEALTH CENTER ASSISTANT JERAMY CALDWELL M.D. [facility] Comment on above: Performed By: #### A [facility], #### [address] Gram stain for investigation of transfusion reactionOrdered By: Jacques East on 02-12-2023 Microscopic observation Gram stain Nom (Unsp spec) [facility] Microscopic observation Gram stain Nom (Unsp spec) 2 Days [facility] INR in Platelet poor plasma by Coagulation assayOrdered By: Sally Valle on 02-12-2023 INR Coag (PPP) [Relative time] 0.9 {INR} [facility] Comment on above: INR Therapeutic Rang e [...] on 02-12-2023 Ketones (U) [Mass/Vol] Negative Negative [facility] - UrinalysisOrder ed By: Jacques East on 02-12-2023 Hyaline casts LM Ql (Urine sed) 0-8 [LPF] 0-8 [facility] Magnesiumon 02-12-2023 Magnesium [Mass/Vol] 1.8 mg/dL Low 1.9-2.7 [facility] Comment on above: Result Comment: PERF ORMED BY: [facility] [address] [address] PATHOLOGIST HEALTH CENTER ASSISTANT JERAMY CALDWELL M.D. Performed By: #### M G ####[facility] [place] [id number] [facility] Nitrite Test strip Ql (U)Ord ered By: Jacques East on 02-12-2023 Nitrite Ql (U) Negative Negative [facility] Protein Auto test strip (U) [Mass/Vol]Ordered By: Jacqeus East on 02-12-2023 Protein (U) [Mass/Vol] Negative Negative [facility] Prothrombin time (PT)Ordered By: Sally Valle on 02-12-2023 PT Coag (PPP) [Time] 10.9 s 9.0-12.9 [facility] Comment on above: A hematocrit value g reater than 55% may lead to inaccurate results in coagulation testing. Patients having hematocrit values >55% require a special collection tube for coagulation studies. Please contact the laboratory at [phone] for redraw instructions. Redraw Potassiumon 3 Potassium [Moles/Vol] 4.4 mmol/L Normal 3.5-5.1 [facility] Comment on above: Order Comment: 1ST S pecimen hemolyzed, redraw requested Result Comment: PERF ORMED BY: [place] [address] [place] [place] [id number] PATHOLOGIST HEALTH CENTER ASSISTANT JERAMY CALDWELL M.D. Performed By: #### R EDRAW K ####[place] [id number] [facility] Specific gravity Auto test s trip (U) [Rel density]Ordered By: hi5 on 02-12-2023 Specific gravity (U) [Rel density] 1.017 1.001-1.03 0 [facility] Squamous epithelial cells de tection in urine sediment by light microscopyOrdered By: Wooshiipascual [employer] on 02-12-2023 Epithelial cells.squamous LM Ql (Urine sed) 0-1 [HPF] 0-2 [facility] Troponin I High Sensitivityo n 02-12-2023 Troponin I High Sensitivity 43.8 pg/mL High 0.0-15.0 [facility] Comment on above: Result Comment: PERF ORMED BY: [facility] [address] [place] [address] PATHOLOGIST HEALTH CENTER ASSISTANT JERAMY CALDWELL M.D. Performed By: #### H S TROP ####[place] [id number] [facility] Troponin I High Sensitivity 70.6 pg/mL Off scale high 0.0-15.0 [facility] Comment on above: Result Comment: Crit ical Result : Called to and read back by: BRANDON LEVINE at: 02/12/2023 08:07:31 by:LUCIANO PERFORMED BY: [facility] [address] [place] [id number] PATHOLOGIST HEALTH CENTER ASSISTANT JERAMY CALDWELL M.D. Performed By: #### H S TROP ####[place] [id number] [facility] Troponin I.cardiac [Mass/vol ume] in Serum or Plasma by Detection limit <= 0.01 ng/Ordered By: Sally Valle on 02-12-2023 Troponin I.cardiac DL <= 0.01 ng/mL [Mass/Vol] 43.8 pg/mL 0.0-15.0 [facility] Urine bacteria detection by automated methodOrdered By: Jacques East on 02-12-2023 Bacteria Auto Ql (U) None seen None Seen [facility] Urine clarity by refractomet ry automatedOrdered By: Jacques East on 02-12-2023 Clarity Refractometry automated (U) Clear Clear [facility] Urine glucose measurement by automated test strip (mass/volume)Ordered By: Jacques East on 02-12-2023 Glucose Auto test strip (U) [Mass/Vol] Normal mg/dL Normal [facility] Urine hemoglobin detection b y automated test stripOrdered By: Jacques East on 02-12-2023 Hemoglobin Auto test strip Ql (U) Negative Negative [facility] Urine leukocyte esterase det ection by automated test stripOrdered By: Jacques East on 02-12-2023 Leukocyte esterase Auto test strip Ql (U) 1+ Negative [facility] Urobilinogen Auto test strip (U) [Mass/Vol]Ordered By: Jacques East on 02-12-2023 Urobilinogen (U) [Mass/Vol] Normal mg/dL Normal [facility] XR chest 1V portableon 02-12 XR chest 1V portable [facility] [place] [address] XRay Report Signed Patient: Deysi Hernandez MR#: [id number] : 1960 Acct:[id number] Age/Sex: 62 / F ADM Date: 02/12/23 Loc: Room: [address] [place] [address] Type: ADM IN Attending Dr: Jacques East [...] Bj Ma M.D.02/12/2023 12:40 PM Dictation Location: [place] [address] Transcribed By: [facility] 02/12/23 1240 Dictated By: Bj Ma DO 02/12/23 1237 Signed By: 02/12/23 1240 Normal [facility] pH Auto test strip (U)Ordere d By: Jacques East on 02-12-2023 pH (U) 5.0 [pH] 5.0-9.0 [facility] Ambulatory Visit Summaryon 1 04-13-2022 Ambulatory Visit Summary DEYSI HERNANDEZ :1960 Visit Date:02/10/2023 Ambulatory Visit Instructions Your Diagnosis Dysuria Tests Performed Urnls Dip Stick Auto w/o Microscopy POC 58102 Your Care Team Attending Physician - Alex BRIDGES, Jaxson W. Primary Care Physician - DONNA FINNEY, [facility] This Is Your Medications List Misc [...] Urnls Dip Stick Auto w/o Microscopy POC 46997 (02/10/2023) Bilirubin Urine Dipstick - Negative Blood Urine Dipstick - 2+ Moderate Glucose Urine Dipstick - Negative Ketones Urine Dipstick - Negative Leukocytes Urine Dipstick - 1+ Small Nitrite Urine Dipstick - Positive Protein Urine Dipstick - Negative Specific Cunningham Urine Dipstick - 1.015 Urine Appearance Urine [...] for choosing us for your care. Normal [facility] Auto Diffon 02-10-2023 Basophils/100 WBC (Bld) 1.3 % Normal 0.0-2.0 [facility] Comment on above: Order Comment: Order Added by Discern Expert. Performed By: #### 2 708798, 90604010, 20181995, 1392583, 1687634, 52268166, 68831710 ####[facility] [address] [place] [address] Basophils/Leukocytes Auto (Bld) [Pure # fraction] 0.1 E9/L Normal 0.0-0.2 [facility] Comment on above: Order Comment: Order Added by Discern Expert. Performed By: #### 2 839061, 23229946, 33301922, 7468847, 5881859, 02563683, 95325269 ####[address] [address] Eosinophils/100 WBC (Bld) 1.5 % Normal 0.0-8.0 [facility] Comment on above: Order Comment: Order Added by Discern Expert. Performed By: #### 2 424464, 11165749, 34518284, 4286087, 7659278, 28144537, 21493910 ####[place] [address] [place] [address] Eosinophils/Leukocytes Auto (Bld) [Pure # fraction] 0.1 E9/L Normal 0.0-0.5 [facility] Comment on above: Order Comment: Order Added by Discern Expert. Performed By: #### 2 036317, 63274385, 45974176, 5961725, 8128734, 30284479, 07824836 ####[address] [address] Lymphocytes/100 WBC (Bld) 16.8 % Normal 14.0-50.0 [facility] Comment on above: Order Comment: Order Added by Discern Expert. Performed By: #### 2 399896, 32559878, 31448455, 8744573, 6833825, 38942262, 36936268 ####[address] [address] Lymphocytes/Leukocytes Auto (Bld) [Pure # fraction] 1.6 E9/L Normal 1.0-4.0 [facility] Comment on above: Order Comment: Order Added by Discern Expert. Performed By: #### 2 263756, 27253211, 90120686, 8717329, 2230342, 39125483, 60989241 ####[address] [address] Monocytes/100 WBC (Bld) 9.8 % Normal 4.0-14.0 [facility] Comment on above: Order Comment: Order Added by Discern Expert. Performed By: #### 2 095427, 34575042, 72119293, 3190809, 5034642, 78536311, 83151318 ####[place] [address] [place] [address] Monocytes/Leukocytes Auto (Bld) [Pure # fraction] 0.9 E9/L Normal 0.2-1.0 [facility] Comment on above: Order Comment: Order Added by Discern Expert. Performed By: #### 2 174159, 61883488, 19515797, 2304190, 3783290, 78683077, 35366440 ####[place] [address] [place] [address] Neutrophils/100 WBC (Bld) 70.6 % Normal 36.0-75.0 [facility] Comment on above: Order Comment: Order Added by Discern Expert. Performed By: #### 2 450563, 35516470, 48383568, 0319088, 5318996, 80709602, 09600449 ####[place] [address] [place] [address] Neutrophils/Leukocytes Auto (Bld) [Pure # fraction] 6.7 E9/L Normal 2.0-7.5 [facility] Comment on above: Order Comment: Order Added by Discern Expert. Performed By: #### 2 988752, 23704200, 25572312, 5670088, 4595704, 99138546, 27495840 ####[place] [address] [place] [address] BMPon 02-10-2023 Anion gap [Moles/Vol] 14 mmol/L Normal 6-16 [facility] Comment on above: Performed By: #### 2 487483, 79261790, 72613135, 0592055, 2009048, 03431708, 32405355 ####[place] [address] [place] [address] BUN/Creat Ratio 12 No Units Normal 10-20 [facility] Comment on above: Performed By: #### 2 905786, 03108475, 11637780, 6725498, 4669179, 65738909, 69024235 ####[facility] [address] [place] [address] Calcium [Mass/Vol] 9.7 mg/dL Normal 8.9-11.1 [facility] Comment on above: Performed By: #### 2 257461, 15540497, 57837155, 9005279, 4083915, 89748464, 34773766 ####[facility] [address] [place] [address] Chloride [Moles/Vol] 107 mmol/L Normal 101-111 [facility] Comment on above: Performed By: #### 2 548297, 29785055, 35370496, 9497951, 5859320, 39828477, 29830319 ####[facility] [address] [place] [address] CO2 [Moles/Vol] 25 mmol/L Normal 21-31 [facility] Comment on above: Performed By: #### 2 492496, 99315274, 24175502, 5260990, 3797038, 96686985, 43751924 ####[facility] [address] [place] [address] Creatinine [Mass/Vol] 1.4 mg/dL High 0.5-1.3 [facility] Comment on above: Performed By: #### 2 154296, 55859345, 34304559, 9409012, 4132143, 20189289, 70149648 ####[facility] [address] [place] [address] Glucose [Mass/Vol] 84 mg/dL Normal 55-199 [facility] Comment on above: Performed By: #### 2 563210, 95866352, 82158950, 8121882, 9074892, 29211150, 25050932 ####[facility] [address] [place] [address] Potassium [Moles/Vol] 4.8 mmol/L Normal 3.5-5.3 [facility] Comment on above: Performed By: #### 2 906158, 94782389, 27574519, 2519288, 9494126, 69840237, 85603081 ####[facility] [address] [place] [address] Sodium [Moles/Vol] 141 mmol/L Normal 135-145 [facility] Comment on above: Performed By: #### 2 591170, 68931368, 20087695, 5541712, 3194065, 99167323, 78729263 ####[facility] [address] [place] [address] Urea nitrogen [Mass/Vol] 17 mg/dL Normal 5-21 [facility] Comment on above: Performed By: #### 2 431544, 29020181, 01723947, 2881238, 4383207, 87973927, 81003989 ####[facility] [address] [place] [address] BNPon 02-10-2023 Natriuretic peptide B (Bld) [Mass/Vol] 39 pg/mL Normal 5-80 [facility] Comment on above: Performed By: #### 2 884015, 38547830, 76226309, 0456153, 4893871, 52575705, 42501911 ####[facility] [address] [place] [address] CBC w/ Auto Diffon Erythrocyte distribution width (RBC) [Ratio] 14.4 % High 10.9-14.2 [facility] Comment on above: Performed By: #### 2 903839, 25737925, 85413256, 2875421, 8425942, 87929760, 72471485 ####[facility] [address] [place] [address] Hematocrit (Bld) [Volume fraction] 50.0 % High 34.0-46.0 [facility] Comment on above: Performed By: #### 2 386865, 87158516, 09491411, 2092005, 3270181, 70053434, 84516384 ####[facility] [address] [place] [address] Hemoglobin (Bld) [Mass/Vol] 16.8 g/dL High 12.0-16.0 [facility] Comment on above: Performed By: #### 2 219877, 19075222, 89901611, 0829513, 5007489, 53732103, 10793387 ####[facility] [address] [place], [place] [address] MCH (RBC) [Entitic mass] 30.1 pg Normal 27.0-34.0 [facility] Comment on above: Performed By: #### 2 069948, 27555480, 70279787, 1053696, 2242525, 14777136, 60262625 ####[address] [address] MCHC (RBC) [Mass/Vol] 33.7 g/dL Normal 31.4-36.0 [facility] Comment on above: Performed By: #### 2 730983, 69600218, 76853430, 4828003, 3855311, 46926134, 57567391 ####[address] [address] MCV (RBC) [Entitic vol] 89.4 fL Normal 80.0-100.0 [facility] Comment on above: Performed By: #### 2 412958, 47697643, 45021893, 2202173, 8920446, 85891603, 69143767 ####[address] [address] Platelet mean volume (Bld) [Entitic vol] 8.0 fL Normal 6.4-10.8 [facility] Comment on above: Performed By: #### 2 731073, 92320257, 03737317, 5883781, 4743379, 12135170, 62457305 ####[address] [address] Platelets (Bld) [#/Vol] 202.0 E9/L Normal 150.0-500. 0 [facility] Comment on above: Performed By: #### 2 605908, 49971088, 04189505, 5414308, 3046542, 30334165, 93372572 ####[facility] [address] [place] [address] RBC (Bld) [#/Vol] 5.6 E12/L Normal 4.3-5.9 [facility] Comment on above: Performed By: #### 2 695638, 97907680, 83964958, 5692723, 8613237, 89748540, 14124250 ####[facility] [address] [place] [address] WBC corrected for nucl RBC Auto (Bld) [#/Vol] 9.4 E9/L Normal 4.0-11.0 [facility] Comment on above: Performed By: #### 2 446785, 99871475, 63032339, 8488161, 1113078, 44338591, 26718012 ####[facility] [address] [place] [address] CHEMISTRYOrdered By: SYSTEM SYSTEM on 02-10-2023 Anion [...] 39 pg/mL Normal 5 - 80 pg/mL [facility] COAGULATIONOrdered By: Veronica Guidry on 02-10-2023 aPTT Coag (PPP) [Time] 29.2 s Normal 25.1 - 36.5 second(s) [facility] Auto Coag Comment on above: [...] same coagulation reagent and instrumentation as [facility]. Currently there are no coagulation studies available worldwide for children to 14 days, and no normal ranges. Heparin therapeutic range (represented by Anti-Factor Xa activity of 0.2 - 0.4 U/mL) corresponds to PTT of 56.6 - 109.0 sec. INR Coag (PPP) [Relative time] 1.0 {INR} Invalid Interpretation Code [facility] Auto Coag Comment on above: Interpretive Data: I NR results are specifically intended to assess patients stabilized on long-term Anticoagulation therapy suggested INR s Less Intensive Anticoagulation 2.0 3.0 Conventional Range 3.0 4.5 PT Coag (PPP) [Time] 11.6 s Normal 9.4 - 1 2.5 second(s) [facility] Auto Coag Comment on above: [...] same coagulation reagent and instrumentation as [facility]. Currently there are no coagulation studies available worldwide for children to 14 days, and no normal ranges. Consent for Treatmenton 01-19 Consent for Treatment [id number] Normal [facility] Discharge Instructionson Discharge Instructions [id number] F Normal [facility] ED Clinical Summaryon 2022 ED Clinical Summary (Inserted Image. Neelam ble to display) [place] [id number] ED Clinical Summary Person Information Name: DEYSI HERNANDEZ Trav/[facility] Age: 62 Years : 1960 Sex: Female Language: Puerto Rican PCP: SHAIKH THOMPSON MD Marital Status: Visit [...] 02/10/2023 17:12:09 02/10/2023 17:12:09 ADDRESS: [address] [facility] [id number] PHYS DOC NOTES: MEDICAL INFORMATION: Prescriptions Given: New Medications [id number], [address], [place] [id number], [phone] cefdinir (cefdinir 300 mg Cap) 1 Capsules [...] EDUCATION INFORMATION: Instructions: Urinary Tract Infection, Adult, Ehye-yc-Ordl; Acute Bronchitis, Adult Follow up: With: Address: When: SHAIKH DONNA [address] [place], [place] [phone] [employer] (1) In 3 days 02/13/2023 Comments: Follow-up with your primary care provider in 3 to 5 days. If symptoms worsen, do not improve, or new symptoms arise please report back to emergency department for further evaluation. DIAGNOSIS: Bronchitis; UTI (urinary tract infection) Normal [facility] ED Note-Nursingon 02-10-2023 ED Note-Nursing EKG late due to vanessa ent being in the bathroom when called. Normal [facility] ED Note-Physicianon 02-11-20 ED Note-Physician Basic Information [...] (N39.0: Urin (more content not included)... Normal [facility] Comment on above: Result Comment: Elec tronically [...] these instructions at home: Medicines ? Take rqsl-bte-nugaxfj and prescription medicines only as told by [...] provider. Document Revised: 09/16/2020 Document Reviewed: 09/16/2020 [employer] Patient Education ? 2022 [employer]. Pulmonary Medicine Acute Bronchitis, Adult Acute bronchitis [...] The f (more content not included)... Normal [facility] ED Patient Summaryon 023 ED Patient Summary (Inserted Image. Neelam ble to display) [address] [address] Patient Discharge Instructions Person Information Name: DEYSI HERNANDEZ Age: 62 Years Arrival Date: 02/10/2023 14:37:39 Discharge Diagnosis: Bronchitis; UTI (urinary tract infection) Primary Care Physician: SHAIKH THOMPSON MD Provider Information Primary Provider: Gabby De Oliveira M.D. Advanced Huc Ob:None The exam and treatment you received in the Emergency Department were for an urgent problem and are not intended as complete care. It is important that you follow up with a doctor, nurse practitioner, or physician?s assistant principal for ongoing care. If your symptoms become [...] With: Address: When: SHAIKH DONNA [address] [place], [place] [phone] Business (1) In 3 days 02/13/2023 Comments: [...] Patient Education Materials: Urinary Tract Infection, Adult, Qlyy-al-Peif; Acute Bronchitis, Adult A MESSAGE TO ALL PATIENTS REGARDING OPIOIDS PRESCRIPTION OPIOIDS: WHAT YOU NEED TO KNOW Prescription opioids can be used to help relieve fuzdptqv-vg-krwrjl pain and are often prescribed following a [...] Visit www.cdc.gov/ (more content not included)... Normal [facility] Family Medicine Office/Clini c Noteon 02-10-2023 Family [...] send her to the emergency department at [facility]. She was offered EMS transfer but she [...] hurt by (more content not included)... Normal [facility] Comment on above: Result Comment: Elec tronically [...] 30.1 pg Normal 27.0 - 34.0 pg [facility] HemeAutoSS MCHC (RBC) [Mass/Vol] 33.7 g/dL Normal [...] 9.4 E9/L Normal 4.0 - 11.0 E9/L [facility] HemeAutoSS Influenza A&B Agon 3 Influenzae A Ag Negative Normal Negative [facility] Comment on above: Performed By: #### 1 [id number], [id number] ####[facility] [address] [place] [address] Influenzae B Ag Negative Normal Negative [facility] Comment on above: Result Comment: Test sensitivity and specificity vary for age group, specimen type, antigen types, and prevalence of disease. Test results must be evaluated in conjunction with other clinical data available to the physician. Individuals who received nasally administered Influenza A vaccine may have positive test results up to 3 days after vaccination. Performed By: #### 1 [id number], [id number] ####[facility] [address] [place] [address] MICRO OTHER TESTSOrdered By: Trudy Guidry on 02-10-2023 Influenzae A Ag Negative (02/10/23 3:25 PM) Normal Negative [facility] Influenzae B Ag Negative 1 (02/10/23 3:25 PM) Normal Negative [facility] Comment on above: Interpretive Data: [...] NEG [place] (02/10/23 3:25 PM) Normal [facility] Rapid COV Int POS [place]l [place] (02/10/23 3:25 PM) Normal [facility] SARS-CoV+SARS-CoV-2 (COVID-19) Ag IA.rapid Ql (Resp) Not Detected 6 (02/10/23 3:25 PM) Normal Not Detected [facility] Comment on above: Interpretive Data: T he [employer] Veritor System for Rapid Detection of SARS-CoV-2 [...] Coag (PPP) [Time] 29.2 second(s) Normal 25.1-36.5 [facility] Comment on above: Result Comment: Para meter [...] same coagulation reagent and instrumentation as [facility]. Currently there are no coagulation studies available worldwide for children to 14 days, and no normal ranges. Heparin therapeutic range (represented by Anti-Factor Xa activity of 0.2 - 0.4 U/mL) corresponds to PTT of 56.6 - 109.0 sec. Performed By: #### 2 692301, 92798240, 42163881, 6397657, 8159667, 80310300, 87003745 ####[facility] [place] [address] INR Coag (PPP) [Relative time] 1.0 {INR} Invalid Interpretation Code [facility] Comment on above: Result Comment: INR results are specifically intended to assess patients stabilized on long-term Anticoagulation therapy suggested INR?s ?Less Intensive Anticoagulation? 2.0 ? 3.0 Conventional Range 3.0 ? 4.5 Performed By: #### 2 [id number], [id number], [id number], [id number], 5247473, [id number], [id number] ####[facility] [address] [place] [address] PT Coag (PPP) [Time] 11.6 second(s) Normal 9.4-12.5 [facility] Comment on above: Result Comment: 15 d [...] same coagulation reagent and instrumentation as [facility]. Currently there are no coagulation studies available worldwide for children to 14 days, and no normal ranges. Performed By: #### 2 828134, [id number], [id number], 5316524, 1288340, [id number], [id number] ####[address] [place] [address] Rapid COVID Antigen ([facility])on 02-10-2023 Rapid COV Int NEG Ctl Pass Normal [facility] Comment on above: Performed By: #### 1 [id number], [id number] ####[address] [place] [address] Rapid COV Int POS Ctl Pass Normal [facility] Comment on above: Performed By: #### 1 [id number], [id number] ####[address] [place] [address] SARS-CoV+SARS-CoV-2 (COVID-19) Ag IA.rapid Ql (Resp) Not detected Normal Not Detected [facility] Comment on above: Result Comment: [employer] Veritor? System for Rapid Detection of SARS-CoV-2 [...] or revoked sooner. Performed By: #### 1 [id number], [id number] ####[facility] [address] [place] [address] Troponin 0 Hr.on 02-10-2023 Troponin 5.80 pg/mL Low 10.10-27.1 0 [facility] Comment on above: Result Comment: The 95% CI (Confidence Interval) PPV (Positive Predictive Value) for myocardial infarction in females is 38 pg/mL, in males 51 pg/mL. The results should be used in conjunction with clinical conditions of myocardial infarction. (Access High Sensitivity Troponin I Instructions For Use, Kavita Houston, September 2017) Performed By: #### 2 888374, [id number], 02615169, 3709825, 4044948, 72139246, [id number] ####[facility] [address] [place] [address] XR Chest Single Viewon 02-10 XR Chest [...] mGy = na DAP = na Normal [facility] eGFRon 02-10-2023 eGFR 43 mL/min/1.73 m2 Low >=59 [facility] Comment on above: Order Comment: Order added by Discern Expert. Performed By: #### 2 804064, [id number], 99563725, 5841990, 6954043, 65465483, 10180686 ####[facility] [address] [place] [address] Lizbet 10-26-2022 VERONICAN Telephone ([facility]) ----- DEYSI HERNANDEZ ([id number]) 1960 F Date Time Provider Department 10/26/22 DEBRA FISHMAN [facility] During your visit today, we recorded the [...] question. I will also send her a JoMaJa message encouraging communicate via JoMaJa if needed. Debra Fishman MD Staff, Department of Kidney Medicine 10/26/22 5:49 PM Allergies As of Date: 10/26/2022 Noted Allergy Reaction CODEINE 09/07/2014 7 - Swelling Date Reviewed: 10/09/2022 Reviewed by: Rosie Harris DO - Fully Assessed Reason for Visit: Patient Question [1057] Prescriptions as of 10/26/2022 - lisinopril (ZESTRIL) [...] Status:Closed by DEBRA FISHMAN on 10/26/22 Normal [facility] CNPNon 10-25-2022 CNPN Telephone ([place]IMM[place]) ----- DEYSI HERNANDEZ ([id number]) 1960 F Date Time Provider Department 10/25/22 DEBRA FISHMAN During your visit today, we recorded the following information about you: Linn Solis Ma 10/25/2022 12:36 PM Signed Patient called the office very upset because today at here appointment with Kidney Medicine she was seen by another provider and it wasn't her kidney doctor. She would like Dr. Fishman call her back at [phone] because she has lots of questions that [...] Fully Assessed Reason for Visit: Patient Question [2879] Prescriptions as of 10/25/2022 - lisinopril (ZESTRIL) [...] Status:Closed by LINN SOLIS MA on 10/25/22 [facility] Urineon 10-18-2022 Bacteria identified Cx Nom (U) [...] Locations R1: This test was performed at: [facility], [address] [place] [address], [address] , , Normal [facility] Comment on above: Performed By: #### 2 [id number] ####[facility] [address] [place] [address] Family Medicine Office/Clini c Noteon 10-15-2022 Family [...] with voice recognition software. Occasional wrong-word or ?gaoom-h-wdyj? substitutions may have occurred due to the inherent limitations of voice recognition software. 62-year-old female with history of stage III chronic kidney disease, hyperlipidemia, hypertension, current smoker presents today to [facility] care with chief complaint of possible urinary tract infection. She does note that she has been seen urology in the past in regards to stress incontinence. She also notes that she sees nephrology out of [facility]. Patient states she sees them every 6 months for history of her chronic kidney disease in which she states that her right kidney does a lot of work in her left kidney does not function. Patient states a history of urosepsis several years ago and she does not really recall 5 of her days of hospitalization or transfer from [facility] to [facility]. Patient states that on of last [...] day(s), # 21 cap(s), Refills(s) 0, Pharmacy: [id number], 163, cm, 10/15/22 17:40:00 EDT, Height/Length [...] day(s), # 21 cap(s), Refills(s) 0, Pharmacy: [id number], 163, cm, 10/15/22 17:40:00 EDT, Height/Length Dosing, 72.3, kg, 10/15/22 17:40:00 EDT, Weight Dosing 3. Smoker (F17.200: Nicotine dependence, unspecified (more content not included)... Normal [facility] Comment on above: Result Comment: Elec tronically [...] numbers. This can be done either in [place] ([place] or metric measurements. Note that charts and online BMI calculators are available to help you find your BMI quickly and easily without having to do these calculations yourself. To calculate your BMI in [place] ([place] measurements: 1. Measure your weight in [...] for Disease Control and Prevention: www.cdc.gov ? [place] Heart Association: www.heart.org ? National Heart, Lung, and Blood [place]: www.nhlbi.nih.gov Summary ? Body mass index (BMI) is a number that is calculated from a person's weight and height. ? BMI may help estimate how much of a person's weight is composed of fat. BMI can help identify those who may be at higher risk for certain medical problems. ? BMI can be measured using [place] measurements or metric measurements. ? BMI charts are used to identify whether you are underweight, normal weight, overweight, or obese. This information is not intended to replace advice given to you by your health care provider. Make sure you discuss any questions you have with your health care provider. Document Revised: 10/28/2019 Document Reviewed: 09/04/2019 [employer] Patient Education ? 2022 [employer]. Obstetrics and Gynecology Urinary Tract Infection, Adult [...] condition if: (more content not included)... Normal [facility] 10-11-2022 CNP Telephone (WIQ) ----- DEYSI HERNANDEZ ([id number]) 1960 F Date Time Provider Department 10/11/22 CATHIE MOORE During your visit today, we recorded the following information about you: [facility]/2022 12:57 PM Signed Smoking Cessation Navigation Outcome of contact: Left Message Comments: A voicemail has been left for this patient regarding Tobacco Cessation support options. If this patient has any further questions they can email us at or call us at [phone]. [employer] Shade Maker/Smoking Cessation Navigator: [facility] Allergies As of Date: 10/11/2022 Noted [...] Status:Closed by CATHIE MOORE on 10/11/22 Normal [facility] CNOVon 10-09-2022 CNOV Office Visit (ELPIDIO ) ----- DEYSI HERNANDEZ ([id number]) 1960 F Date Time Provider Department 10/09/22 2:00 PM GURMEET OJEDA During your visit today, we recorded the following information about you: Temperature Pulse Blood pressure Weight 97.5 degrees 60/minute 91/60 71.3 kg Height 1.575 m Rosie Harris DO 10/09/2022 5:08 PM Signed [facility] NEPH[facility]YPERTENSION [facility] SERVICE DATE: [...] on metoprol (more content not included)... Normal [facility] URINALYSIS, REFLEX MICROSCOP ICon 10-09-2022 Bacteria LM.HPF (Urine sed) [#/Area] Few Abnormal None Seen [facility] Comment on above: Order Comment: Speci men Type: URINE SPECIMEN Ordering Facility: [facility] Address: [address] [place] [address] Performed By: #### L [id number] #### [facility] CLIA [id number] [address] [place] [address] [place] Bilirubin Ql (U) Negative Normal Negative [facility] Comment on above: Order Comment: Speci men Type: URINE SPECIMEN Ordering Facility: [facility] Address: [address] [place] [address] Performed By: #### L [id number] #### [facility] CLIA [id number] [address] [place] [address] [place] Clarity (Unsp spec) Cloudy Abnormal Clear [facility] Comment on above: Order Comment: Speci men Type: URINE SPECIMEN Ordering Facility: [facility] Address: [address] [place], [place] [address] Performed By: #### L [id number] #### [facility] CLIA [id number] [address] [place] [address] [place] Color (U) Light Yellow Normal Yellow [facility] Comment on above: Order Comment: Speci men Type: URINE SPECIMEN Ordering Facility: [facility] Address: [address] [place] [address] Performed By: #### L [id number] #### [facility] CLIA [id number] [address] [place] [address] [place] Epithelial cells LM.HPF (Urine sed) [#/Area] Few Normal [facility] Comment on above: Order Comment: Speci men Type: URINE SPECIMEN Ordering Facility: [facility] Address: [address] [place] [address] Performed By: #### L [id number] #### [facility] CLIA [id number] [address] [place] [address] [place] Glucose Test strip (U) [Mass/Vol] Negative Normal Trace, Negative [facility] Comment on above: Order Comment: Speci men Type: URINE SPECIMEN Ordering Facility: [facility] Address: [address] Performed By: #### L [id number] #### [facility] CLIA [id number] [address] [place] [address] [place] Hemoglobin Ql (U) Trace Normal Negative, Trace [facility] Comment on above: Order Comment: Speci men Type: URINE SPECIMEN Ordering Facility: [facility] Address: [address] Performed By: #### L [id number] #### [facility] CLIA [id number] [address] [place] [address] [place] Ketones Ql (U) Negative Normal Negative, Trace [facility] Comment on above: Order Comment: Speci men Type: URINE SPECIMEN Ordering Facility: [facility] Address: [address] Performed By: #### L [id number] #### [facility] CLIA [id number] [address] [place] [address] [place] Leukocyte esterase Test strip Ql (U) 250 Bonnie/uL Abnormal Negative, 25 Bonnie/uL [facility] Comment on above: Order Comment: Speci men Type: URINE SPECIMEN Ordering Facility: [facility] Address: [address] Performed By: #### L [id number] #### [facility] CLIA [id number] [address] [place] [address] [place] Nitrite Ql (U) 2+ Abnormal Negative [facility] Comment on above: Order Comment: Speci men Type: URINE SPECIMEN Ordering Facility: [facility] Address: [address] Performed By: #### L [id number] #### [facility] CLIA [id number] [address] [place] pH (U) 5.5 [pH] Normal 5.0-8.0 [facility] Comment on above: Order Comment: Speci men Type: URINE SPECIMEN Ordering Facility: [facility] Address: [address] [place] [address] Performed By: #### L [id number] #### [facility] CLIA [id number] [address] [place] [address] [place] Protein (U) [Mass/Vol] Negative Normal Trace , Negative [facility] Comment on above: Order Comment: Speci men Type: URINE SPECIMEN Ordering Facility: [facility] Address: [address] [place], [place] [address] Performed By: #### L [id number] #### [facility] CLIA [id number] [address] [place] [address] [place] RBC LM.HPF (Urine sed) [#/Area] 0-3 /HPF Normal 0-3 /HPF [facility] Comment on above: Order Comment: Speci men Type: URINE SPECIMEN Ordering Facility: [facility] Address: [address] [place] [address] Performed By: #### L [id number] #### [facility] CLIA [id number] [address] [place] [address] [place] Specific gravity (U) [Rel density] 1.015 Normal 1.005-1.03 0 [facility] Comment on above: Order Comment: Speci men Type: URINE SPECIMEN Ordering Facility: [facility] Address: [address] [place], [place] [address] Performed By: #### L [id number] #### [facility] CLIA [id number] [address] [place] [address] [place] Urobilinogen Ql (U) Negative Normal Negative [facility] Comment on above: Order Comment: Speci men Type: URINE SPECIMEN Ordering Facility: [facility] Address: [address] [place], [place] [address] Performed By: #### L [id number] #### [facility] CLIA [id number] [facility] [address] WBC LM.HPF (Urine sed) [#/Area] /[HPF] Abnormal 0-5 /HPF [facility] Comment on above: Order Comment: Speci men Type: URINE SPECIMEN Ordering Facility: [facility] Address: [address] Performed By: #### L [id number] #### [facility] CLIA [id number] [address] Bacteria LM.HPF (Urine sed) [#/Area] Few Abnormal None Seen /HPF [facility] Bilirubin Ql (U) Negative Negative [facility] Clarity (Unsp spec) Cloudy Abnormal Clear [facility] Color (U) Light Yellow Yellow [facility] Epithelial cells LM.HPF (Urine sed) [#/Area] Few [facility] Glucose Test strip (U) [Mass/Vol] Negative Trace, Negative [facility] Hemoglobin Ql (U) Trace Negative, Trace [facility] Ketones Ql (U) Negative Negative, Trace [facility] Leukocyte esterase Test strip Ql (U) 250 Bonnie/uL Abnormal Negative, 25 Bonnie/uL [facility] Nitrite Ql (U) 2+ Abnormal Negative [facility] pH (U) 5.5 [pH] 5.0 - 8.0 [facility] Protein (U) [Mass/Vol] Negative Trace , Negative [facility] RBC LM.HPF (Urine sed) [#/Area] 0-3 /HPF 0-3 /HPF [facility] Specific gravity (U) [Rel density] 1.015 1.005 - 1.030 [facility] Urobilinogen Ql (U) Negative Negative [facility] WBC LM.HPF (Urine sed) [#/Area] /[HPF] Abnormal 0-5 /HPF [facility] 25(OH)D3 [facility] 2022 25-hydroxyvitamin D3 [Mass/Vol] 34.5 ng/mL Normal 31.0-80.0 [facility] Comment on above: Order Comment: Speci men Type: BLOOD SPECIMEN Ordering Facility[facility] Address: [address] [place] [address] Result Comment: Clas sification of 25 [place] Vitamin D status: Deficiency/Insufficiency: < or = 30 ng/ml. Sufficiency/Optimal Levels: 31-80 ng/mL Toxicity: > 100 ng/mL. Test performed by chemiluminescent immunoassay. Performed By: #### 1 989-3 #### [facility] CLIA [id number] [address] [place] [address] IMMUNOFIXATION SCREEN, SERUM on 08-23-2022 MPA RESULT No M protein is identified. Normal No M protein is identified . [facility] Comment on above: Order Comment: Speci men Type: BLOOD SPECIMEN Ordering Facility: [facility] Address: [address] [place] [address] Performed By: #### I FESC #### [facility] CLIA [id number] [address] [place] [address] OF [facility] STAFF REVIEW (MPA) Reviewed by Cortes Alfredo MD, Ph.D ([id number]) [facility] Comment on above: Order Comment: Speci men Type: BLOOD SPECIMEN Ordering Facility: [facility] Address: [address] [place] [address] Performed By: #### I FESC #### [facility] CLIA [id number] [address] [place] [address] [place] IMMUNOGLOBULINS GAMon 2022 IgA [Mass/Vol] 218 mg/dL Normal 70-400 [facility] Comment on above: Order Comment: Speci men Type: BLOOD SPECIMEN Ordering Facility: [facility] Address: [address] [place] [address] Performed By: #### S ERIMM #### [facility] CLIA [id number] [address] [place] IgG [Mass/Vol] 775 mg/dL Normal 700-1600 [facility] Comment on above: Order Comment: Speci men Type: BLOOD SPECIMEN Ordering Facility: [facility] Address: [address] [place] [address] Performed By: #### S ERIMM #### [facility] CLIA [id number] [address] [place] [address] [place] IgM [Mass/Vol] 129 mg/dL Normal 40-230 [facility] Comment on above: Order Comment: Speci men Type: BLOOD SPECIMEN Ordering Facility: [facility] Address: [address] [place] [address] Performed By: #### S ERIMM #### [facility] CLIA [id number] [address] [place] [address] [place] KAPPA/THAO,FREE,SERon 2022 Immunoglobulin light chains.kappa.free (S) [Mass/Vol] 26.1 mg/L High 3.3-19.4 [facility] Comment on above: Order Comment: [facility]OD [facility] Address: [address] [place] [address] Result Comment: Rare ly, increased serum free light chains levels may not be detected or accurately quantified due to prozone phenomenon or in high viscosity samples using this immunoturbidimetric assay. Correlation with other laboratory results and clinical findings is recommended. The Daykin Free Light Chain was performed using the Binding Site Optilite immunoturbidimetric method. Result obtained with different assay methods or kits cannot be used interchangeably. Performed By: #### K LFRS #### [facility] CLIA [id number] [address] [place] [address] [place] Immunoglobulin light chains.kappa/Immunoglo bulin light chains.lambda (S) [Mass ratio] 1.01 Normal 0.26-1.65 [facility] Comment on above: Order Comment: [facility]: BLOOD SPECIMEN [facility] Address: [address] [place] [address] Performed By: #### K LFRS #### [facility] CLIA [id number] [address] [place] [address] [place] Immunoglobulin light chains.lambda.free [Mass/Vol] 25.9 mg/L Normal 5.7-26.3 [facility] Comment on above: Order Comment: Speci men Type: BLOOD SPECIMEN Ordering Facility: [facility] Address: [address] [place] [address] Result Comment: Rare ly, increased serum free [...] interchangeably. Performed By: #### K LFRS #### [facility] CLIA [id number] [address] [place] [address] [place] Renal function 2000 panel 08-23-2022 Albumin [Mass/Vol] 4.3 g/dL Normal 3.9-4.9 [facility] Comment on above: Order Comment: Marioi men Type: BLOOD SPECIMEN Ordering Facility: [facility] Address: [address] [place] [address] Performed By: #### 2 4362-6 #### [facility] CLIA [id number] [address] [place] [address] [place] Anion gap [Moles/Vol] 9 mmol/L Normal 9-18 [facility] Comment on above: Order Comment: Speci men Type: BLOOD SPECIMEN Ordering Facility: [facility] Address: [address] [place] [address] Performed By: #### 2 4362-6 #### [facility] IA [id number] [address] [place] [address] [place] Calcium [Mass/Vol] 9.9 mg/dL Normal 8.5-10.2 [facility] Comment on above: Order Comment: Speci men Type: BLOOD SPECIMEN Ordering Facility: [facility] Address: [address] Performed By: #### 2 4362-6 #### [facility] CLIA [id number] [address] [place] [address] [place] Chloride [Moles/Vol] 105 mmol/L Normal 97-105 [facility] Comment on above: Order Comment: Speci men Type: BLOOD SPECIMEN Ordering Facility: [facility] Address: [address] [place] [address] Performed By: #### 2 4362-6 #### [facility] CLIA [id number] [address] [place] [address] [place] CO2 [Moles/Vol] 25 mmol/L Normal 22-30 [facility] Comment on above: Order Comment: Speci men Type: BLOOD SPECIMEN Ordering Facility[facility] Address: [address] [place] [address] Performed By: #### 2 4362-6 #### [facility] IA [id number] [address] [place] [address] [place] Creatinine [Mass/Vol] 1.42 mg/dL High 0.58-0.96 [facility] Comment on above: Order Comment: Speci men Type: BLOOD SPECIMEN Ordering Facility[facility] Address: [address] [place] [address] Performed By: #### 2 4362-6 #### [facility] IA [id number] [address] OF [place] ESTIMATED GLOMERULAR FILTRATION RATE 42 mL/min/1.73m??? Low >=60 [facility] Comment on above: Order Comment: Speci men Type: BLOOD SPECIMEN Order[facility] Facility[facility] Address: [address] [place], [place] [address] Result Comment: Jody mated Glomerular Filtration Rate [...] GFR. Performed By: #### 2 4362-6 #### [facility] CLIA [id number] [address] [place] [address] [place] Glucose [Mass/Vol] 70 mg/dL Low 74-99 [facility] Comment on above: Order Comment: Carmen juarez Type: BLOOD SPECIMEN Order[facility] Facility[facility] Address: [address] [place] [address] Result Comment: The [place] Diabetes Association (ADA) provides guidance for cutoff [...] Standards of Medical Care in Diabetes 2016, [place] Diabetes Association. Diabetes Care. 2016.39(Suppl 1). Performed By: #### 2 4362-6 #### [facility] CLIA [id number] [address] [place] [address] [place] Phosphate [Mass/Vol] 2.5 mg/dL Low 2.7-4.8 [facility] Comment on above: Order Comment: Carmen juarez Type: BLOOD SPECIMEN Order[facility] Facility[facility] Address: [address] [place] [address] Performed By: #### 2 4362-6 #### [facility] CLIA [id number] [address] [place] [address] [place] Potassium [Moles/Vol] 4.8 mmol/L Normal 3.7-5.1 [facility] Comment on above: Order Comment: Carmen juarez Type: BLOOD SPECIMEN Order[facility] Facility[facility] Address: [address] [place] [address] Performed By: #### 2 4362-6 #### [facility] CLIA [id number] [address] [place], [place] [id number] [place] [address] [place] [facility] Sodium [Moles/Vol] 139 mmol/L Normal 136-144 [facility] Comment on above: Order Comment: Speci men Type: BLOOD SPECIMEN Ordering Facility[facility] Address: [address] [place] [address] Performed By: #### 2 4362-6 #### [facility] CLIA [id number] [address] [place], [place] [id number] [place] [address] [place] [facility] Urea nitrogen [Mass/Vol] 18 mg/dL Normal 7-21 [facility] Comment on above: Order Comment: Speci men Type: BLOOD SPECIMEN Ordering Facility: [facility] Address: [address] [place] [address] Performed By: #### 2 4362-6 #### [facility] CLIA [id number] [place] [address] [place] US KIDNEY/BLADDERon 08-24-19 23 US KIDNEY/BLADDER * * *Final Report* * * DATE OF EXAM: Aug 23 2022 2:15PM [facility] 1055 - KIDNEY/BLADDER / PROCEDURE REASON: [...] residual bladder volume 4. Right renal cyst Tape Transferrer: ERICK Transcribe Date/Time: Aug 28 2022 8:25A Dictated by : ALEAH QUINN MD This examination was interpreted and the report reviewed and electronically signed by: ALEAH QUINN MD on Aug 28 2022 8:28AM EST [id number] [facility] CNOVon 08-09-2022 OV Office Visit (KIDMMN ) ----- DEYSI HERNANDEZ ([id number]) 1960 F Date Time Provider Department 08/09/22 3:00 PM GURMEET OJEDA During your visit today, we recorded the following information about you: Temperature Pulse Blood pressure Weight 97.7 degrees 65/minute 98/64 72.5 kg Height 1.575 m Debra Fishman MD 08/09/2022 7:02 PM Signed [facility] NEPHROLOGY AND HYPERTENSION [facility] SERVICE DATE: [...] CKD, ESRD, hearing loss. She is a half-way smoker, currently 0.75 pack per day but [...] Normal mo (more content not included)... Normal [facility] URINALYSIS, REFLEX MICROSCOP ICon 08-09-2022 Bilirubin Ql (U) Negative Normal Negative Jing bazzi [facility] Comment on above: Order Comment: Speci men Type: URINE SPECIMEN Ordering Facility: [facility] Address: [address] [place] [id number] Performed By: #### L [id number] #### [facility] CLIA [id number] [address] [facility] DESK [id number] [place] [address] [place] Clarity (Unsp spec) Clear Normal Clear [facility] Comment on above: Order Comment: Speci men Type: URINE SPECIMEN Ordering Facility: [facility] Address: [address] [place] [address] Performed By: #### L [id number] #### [facility] CLIA [id number] [address] [place] [address] [place] Color (U) Light Yellow Normal Yellow [facility] Comment on above: Order Comment: Speci men Type: URINE SPECIMEN Ordering Facility: [facility] Address: [address] Performed By: #### L [id number] #### [facility] CLIA [id number] [address] [place] [address] [place] Glucose Test strip (U) [Mass/Vol] Negative Normal Trace, Negative [facility] Comment on above: Order Comment: Speci men Type: URINE SPECIMEN Ordering Facility: [facility] Address: [address] Performed By: #### L [id number] #### [facility] CLIA [id number] [address] [place] [address] [place] Hemoglobin Ql (U) Negative Normal Negative, Trace [facility] Comment on above: Order Comment: Speci men Type: URINE SPECIMEN Ordering Facility: [facility] Address: [address] [place] [address] Performed By: #### L [id number] #### [facility] CLIA [id number] [address] [place] [id number] [place] Ketones Ql (U) Negative Normal Negative, Trace [facility] Comment on above: Order Comment: Speci men Type: URINE SPECIMEN Ordering Facility: [facility] Address: [address] [place] [address] Performed By: #### L [id number] #### [facility] CLIA [id number] [address] [place] [address] [place] Leukocyte esterase Test strip Ql (U) 75 Bonnie/uL Abnormal Negative, 25 Bonnie/uL [facility] Comment on above: Order Comment: Speci men Type: URINE SPECIMEN Ordering Facility: [facility] Address: [address] [place] [address] Performed By: #### L [id number] #### [facility] CLIA [id number] [address] [place] [address] [place] Nitrite Ql (U) Negative Normal Negative [facility] Comment on above: Order Comment: Speci men Type: URINE SPECIMEN Ordering Facility: [facility] Address: [address] [place] [address] Performed By: #### L [id number] #### [facility] CLIA [id number] [address] [place] [address] [place] pH (U) 6.0 [pH] Normal 5.0-8.0 [facility] Comment on above: Order Comment: Speci men Type: URINE SPECIMEN Ordering Facility: [facility] Address: [address] [place], [place] [id number] Performed By: #### L [id number] #### [facility] CLIA [id number] [address] [place] [address] [place] Protein (U) [Mass/Vol] Negative Normal Trace , Negative [facility] Comment on above: Order Comment: Speci men Type: URINE SPECIMEN Ordering Facility: [facility] Address: [address] [place], [place] [id number] Performed By: #### L [id number] #### [facility] CLIA [id number] [address] [place] [address] [place] Specific gravity (U) [Rel density] 1.009 Normal 1.005-1.03 0 [facility] Comment on above: Order Comment: Speci men Type: URINE SPECIMEN Ordering Facility: [facility] Address: [address] [place], [place] [id number] Performed By: #### L [id number] #### [facility] CLIA [id number] [address] [place] Urobilinogen Ql (U) Negative Normal Negative [facility] Comment on above: Order Comment: Speci men Type: URINE SPECIMEN Ordering Facility: [facility] Address: [address] [place] [address] Performed By: #### L [id number] #### [facility] CLIA [id number] [address] [place] Bilirubin Ql (U) Negative Negative [facility] Clarity (Unsp spec) Clear Clear [facility] Color (U) Light Yellow Yellow [facility] Glucose Test strip (U) [Mass/Vol] Negative Trace, Negative [facility] Hemoglobin Ql (U) Negative Negative, Trace [facility] Ketones Ql (U) Negative Negative, Trace [facility] Leukocyte esterase Test strip Ql (U) 75 Bonnie/uL Abnormal Negative, 25 Bonnie/uL [facility] Nitrite Ql (U) Negative Negative [facility] pH (U) 6.0 [pH] 5.0 - 8.0 [facility] Protein (U) [Mass/Vol] Negative Trace , Negative [facility] Specific gravity (U) [Rel density] 1.009 1.005 - 1.030 [facility] Urobilinogen Ql (U) Negative Negative [facility] LIPID PROFILEon 06-12-2022 CHOL-HDL RATIO NORM SEE BELOW Normal [facility] Comment on above: Result Comment: 3.3 - 4.4 LOW RISK 4.4 - 7.1 AVERAGE RISK 7.1 - 11.0 MODERATE RISK >11.0 HIGH RISK Performed By: #### L DAWIT BMP #### [facility] [address] [place] [address] [address] Moreno Amato Cholesterol [Mass/Vol] 178 mg/dL Normal <=200 Th [facility] Comment on above: Performed By: #### L IPID, BMP #### [facility] [address] [place] [address] [address] Moreno Amato Cholesterol in HDL [Mass/Vol] 39 mg/dL Critically low 40-60 [facility] Comment on above: Performed By: #### L IPID, BMP #### [facility] [address] [place] [address] Dr. Moreno Amato Cholesterol in LDL [Mass/Vol] 92.0 mg/dL Normal [facility] Comment on above: Performed By: #### L IPID, BMP #### [facility] [address] [place] [address] Dr. Moreno Amato Cholesterol.total/Chol esterol in HDL [Mass ratio] 4.6 {ratio} Normal [facility] Comment on above: Performed By: #### L IPID, BMP #### [facility] [address] [place] [address] Dr. Moreno Amato HDL NORMAL > or = 60 mg/dl - LO W CARDIOVASCULAR RISK <40 mg/dl - HIGH CARDIOVASCULAR RISK Normal [facility] Comment on above: Performed By: #### L IPID, BMP #### [facility] [address] [place] [address] Dr. Moreno Amato LDL CALC NORMAL SEE BELOW Normal [facility] Comment on above: Result Comment: <100 mg/dl OPTIMAL 100 - 129 mg/dl NEAR OR ABOVE OPTIMAL 130 - 159 mg/dl BORDERLINE HIGH 160 - 189 mg/dl HIGH >190 mg/dl VERY HIGH Performed By: #### L IPID, BMP #### [facility] [address] [place] [address] Dr. Moreno Amato Triglyceride [Mass/Vol] 235 mg/dL Critically high <=150 [facility] Comment on above: Performed By: #### L IPID, BMP #### [facility] [address] [place] [address] Dr. Moreno Amato VLDL CALC 47.0 mg/dL Normal [facility] Comment on above: Performed By: #### L IPID, BMP #### [facility] [address] [place] [address] Dr. Moreno Amato PROF CHEM 8 (BAS METB)on Anion gap [Moles/Vol] 10.7 mmol/L Normal [facility] Comment on above: Performed By: #### L IPID, BMP #### [facility] [address] [place] [address] [address] Moreno Amato Calcium [Mass/Vol] 9.6 mg/dL Normal 8.5-10.1 [facility] Comment on above: Performed By: #### L IPID, BMP #### [facility] [address] [place] [address] [address] Moreno Amato Chloride [Moles/Vol] 104 mmol/L Normal 98-107 [facility] Comment on above: Performed By: #### L IPID, BMP #### [facility] [address] [place] [address] [address] Moreno Amato CO2 [Moles/Vol] 31.6 mmol/L Normal 21.0-32.0 [facility] Comment on above: Performed By: #### L IPID, BMP #### [facility] [address] [place] [address] Dr. Moreno Amato Creatinine [Mass/Vol] 1.58 mg/dL Critically high 0.55-1.02 [facility] Comment on above: Performed By: #### L IPID, BMP #### [facility] [address] [place] [address] Dr. Moreno Amato EGFR-AF GUAMANIAN 40 mL/min/1.73m2 Critically low >=60 [facility] Comment on above: Performed By: #### L IPID, BMP #### [facility] [address] [place] [address] Dr. Moreno Amato EGFR-NON AF GUAMANIAN 33 mL/min/1.73m2 Critically low >=60 [facility] Comment on above: Performed By: #### L IPID, BMP #### [facility] [address] [place] [address] Dr. Moreno Amato Glucose [Mass/Vol] 79 mg/dL Normal 74-106 [facility] Comment on above: Performed By: #### L IPID, BMP #### [facility] [address] [place] [address] Dr. Moreno Amato Potassium [Moles/Vol] 4.3 mmol/L Normal 3.5-5.1 [facility] Comment on above: Performed By: #### L IPID, BMP #### [facility] [address] [place] [address] Dr. Moreno Amato Sodium [Moles/Vol] 142 mmol/L Normal 136-145 [facility] Comment on above: Performed By: #### L IPID, BMP #### [facility] [address] [place] [address] Dr. Moreno Amato Urea nitrogen [Mass/Vol] 21.0 mg/dL Critically high 7.0-18.0 [facility] Comment on above: Performed By: #### L IPID, BMP #### [facility] [address] [place] [address] Dr. Moreno Amato Urea nitrogen/Creatinine [Mass ratio] 13.3 mg/mg Normal [facility] Comment on above: Performed By: #### L IPID, BMP #### [facility] [address] [place] [address] Dr. Moreno Amato URINE T PROTEIN CREAT RATIOo n 06-12-2022 Protein (U) [Mass/Vol] 8.8 mg/dL Normal <=12.0 [facility] Comment on above: Performed By: #### A MY, CMP, LIPA #### [facility] [address] [place] [address] Dr. Moreno Amato UR PROT CREAT RAT 0.12 Normal [facility] Comment on above: Performed By: #### A MY, CMP, LIPA #### [facility] [address] [place] [address] Dr. Moreno Amato URINE CREAT 70.82 mg/dL Normal 20.00-300. 00 [facility] Comment on above: Performed By: #### A MY, CMP, LIPA #### [facility] [address] [place] [address] Dr. Moreno Amato HEMOGLOBINon 04-30-2022 Hemoglobin (Bld) [Mass/Vol] 15.3 g/dL Normal 12.0-16.0 [facility] Comment on above: Performed By: #### A MY, CMP, LIPA #### [facility] [address] [place] [address] [address] Moreno Amato LIPID PROFILEon 03-27-2022 CHOL-HDL RATIO NORM SEE BELOW Normal [facility] Comment on above: Result Comment: 3.3 - 4.4 LOW RISK 4.4 - 7.1 AVERAGE RISK 7.1 - 11.0 MODERATE RISK >11.0 HIGH RISK Performed By: #### A MY, CMP, LIPA #### [facility] [address] [place] [address] [address] Moreno Amato Cholesterol [Mass/Vol] 217 mg/dL Critically high <=200 [facility] Comment on above: Performed By: #### A MY, CMP, LIPA #### [facility] [address] [place] [address] [address] Moreno Amato Cholesterol in HDL [Mass/Vol] 42 mg/dL Normal 40-60 [facility] Comment on above: Performed By: #### A MY, CMP, LIPA #### [facility] [address] [place] [address] [address] Moreno Amato Cholesterol in LDL [Mass/Vol] 121.6 mg/dL Normal [facility] Comment on above: Performed By: #### A MY, CMP, LIPA #### [facility] [address] [place] [address] [address] Moreno Amato Cholesterol.total/Chol esterol in HDL [Mass ratio] 5.2 {ratio} Normal [facility] Comment on above: Performed By: #### A MY, CMP, LIPA #### [facility] [address] [place] [address] [address] Moreno Amato HDL NORMAL > or = 60 mg/dl - LO W CARDIOVASCULAR RISK <40 mg/dl - HIGH CARDIOVASCULAR RISK Normal [facility] Comment on above: Performed By: #### A MY, CMP, LIPA #### [facility] [address] [place] [address] [address] Moreno Amato LDL CALC NORMAL SEE BELOW Normal [facility] Comment on above: Result Comment: <100 mg/dl OPTIMAL 100 - 129 mg/dl NEAR OR ABOVE OPTIMAL 130 - 159 mg/dl BORDERLINE HIGH 160 - 189 mg/dl HIGH >190 mg/dl VERY HIGH Performed By: #### A MY, CMP, LIPA #### [facility] [address] [place] [address] [address] Moreno Amato Triglyceride [Mass/Vol] 267 mg/dL Critically high <=150 [facility] Comment on above: Performed By: #### A MY, CMP, LIPA #### [facility] [address] [place] [address] [address] Moreno Amato VLDL CALC 53.4 mg/dL Normal [facility] Comment on above: Performed By: #### A MY, CMP, LIPA #### [facility] [address] [place] [address] [address] Moreno Amato PROF CHEM 8 (BAS METB)on Anion gap [Moles/Vol] 11.1 mmol/L Normal [facility] Comment on above: Performed By: #### A MY, CMP, LIPA #### [facility] [address] [place] [address] Dr. Moreno Amato Calcium [Mass/Vol] 9.2 mg/dL Normal 8.5-10.1 [facility] Comment on above: Performed By: #### A MY, CMP, LIPA #### [facility] [address] [place] [address] Dr. Moreno Amato Chloride [Moles/Vol] 104 mmol/L Normal 98-107 [facility] Comment on above: Performed By: #### A MY, CMP, LIPA #### [facility] [address] [place] [address] Dr. Moreno Amato CO2 [Moles/Vol] 27.4 mmol/L Normal 21.0-32.0 [facility] Comment on above: Performed By: #### A MY, CMP, LIPA #### [facility] [address] [place] [address] Dr. Moreno Amato Creatinine [Mass/Vol] 1.30 mg/dL Critically high 0.55-1.02 [facility] Comment on above: Performed By: #### A MY, CMP, LIPA #### [facility] [address] [place] [address] [address] Moreno Amato EGFR-AF GUAMANIAN 51 mL/min/1.73m2 Critically low >=60 [facility] Comment on above: Performed By: #### A MY, CMP, LIPA #### [facility] [address] [place] [address] Dr. Moreno Amato EGFR-NON AF GUAMANIAN 42 mL/min/1.73m2 Critically low >=60 [facility] Comment on above: Performed By: #### A MY, CMP, LIPA #### [facility] [address] [place] [address] Dr. Moreno Amato Glucose [Mass/Vol] 102 mg/dL Normal 74-106 [facility] Comment on above: Performed By: #### A MY, CMP, LIPA #### [facility] [address] [place] [address] Dr. Moreno Amato Potassium [Moles/Vol] 4.5 mmol/L Normal 3.5-5.1 [facility] Comment on above: Performed By: #### A MY, CMP, LIPA #### [facility] [address] [place] [address] Dr. Moreno Amato Sodium [Moles/Vol] 138 mmol/L Normal 136-145 [facility] Comment on above: Performed By: #### A MY, CMP, LIPA #### [facility] [address] [place] [address] [address] Moreno Amato Urea nitrogen [Mass/Vol] 23.0 mg/dL Critically high 7.0-18.0 [facility] Comment on above: Performed By: #### A MY, CMP, LIPA #### [facility] [address] [place] [address] Dr. Moreno Amato Urea nitrogen/Creatinine [Mass ratio] 17.7 mg/mg Normal [facility] Comment on above: Performed By: #### A MY, CMP, LIPA #### [facility] [address] [place] [address] Dr. Moreno Johnson 03-27-2022 AST [Catalytic activity/Vol] 24 U/L Normal 15-37 [facility] Comment on above: Performed By: #### A MY, CMP, LIPA #### [facility] [address] [address] [address] Moreno Amato SGPTon 03-27-2022 ALT [Catalytic activity/Vol] 20 U/L Normal 14-59 [facility] Comment on above: Performed By: #### A MY, CMP, LIPA #### [facility] [address] [place] [address] [address] Moreno Amato COVID/FLU RT-PCRon SARS-CoV-2 (COVID-19) RNA ELISA+probe Ql (Unsp spec) Negative [facility] Other COVID/FLU RT-PCR Negative [facility] Other Quick Strepon 03-19-2022 S. pyogenes Org specific cx Ql (Throat) Negative [facility] Other Quick Strep [facility] Other Tobacco Screening.on 023 Adult depression screening assessment No [facility] y 250 DO Work Phone: Fall risk assessment c) Not medically indicated [facility] 250 DO Work Phone: Tobacco use status [facility] b) No [facility] 250 DO Work Phone: PAP ACOG PANEL 2: 30 to 65on 03-02-2022 . . Normal [facility] Comment on above: Result Comment: Perf ormed at: WB Performed By: #### A MY, CMP, LIPA #### [facility] [address] [place] [address] Dr. Moreno Amato Age Gdln ACOG Testing 30-65 Normal [facility] Comment on above: Performed By: #### A MY, CMP, LIPA #### [facility] [address] [address] [address] Moreno Amato DIAGNOSIS: Comment Normal [facility] Comment on above: Result Comment: NEGA TIVE FOR INTRAEPITHELIAL LESION OR MALIGNANCY. Performed at: WB Performed By: #### A MY, CMP, LIPA #### [facility] [address] [address] [address] Moreno Amato HPV Aptima Negative Normal Negative [facility] Comment on above: Result Comment: This nucleic acid amplification test detects fourteen high-risk HPV types (16,18,31,33,35,39,45,51,52,56,58,59,66,68) without differentiation. Performed at: =G Performed By: #### A MY, CMP, LIPA #### [facility] [address] [address] [address] Moreno Amato HPV Genotype Reflex Comment Normal [facility] Comment on above: Result Comment: Crit eria not met, HPV Genotype not performed. Performed at: WB Performed By: #### A MY CMP, LIPA #### [facility] [address] [address] [address] Moreno Amato Methodology: Comment Normal [facility] Comment on above: Result Comment: This liquid based ThinPrep(R) pap test was screened with the use of an image guided system. Performed at: WB Performed By: #### A MY CMP, LIPA #### [facility] [address] [place] [address] [address] Moreno Amato Note: Comment Normal [facility] Comment on above: Result [...] By: #### A MY, CMP, LIPA #### [facility] [address] [address] [address] Moreno Amato Performed by: Comment Normal [facility] Comment on above: Result Comment: Maria Luisa Chou Mower Operator (ASCP) Performed at: WB Performed By: #### A MY, CMP, LIPA #### [facility] [address] [place], [place] [address] Dr. Moreno Amato Specimen adequacy: Comment Normal [facility] Comment on above: Result Comment: Sati sfactory for evaluation. Endocervical and/or squamous metaplastic cells (endocervical component) are present. Performed at: WB Performed By: #### A MY, CMP, LIPA #### [facility] [address] [place], [place] [address] Dr. Moreno Amato XR CHEST 2 Von [...] AMY ROSS Date: 2022-02-19 22:[address] [facility] CARDIAC STRESS/REST INJE CTIONon 01-23-2022 [facility] CARDIAC STRESS/REST INJECTION Patient Name: DEYSI HERNANDEZ STUDY: MYOCARDIAL PERFUSION STRESS TEST WITH LEXISCAN Performing facility: [facility], [address] [place] [address], [address], [place] [address] [facility] Provider: Carlene Beal MD, FACC PCP: Dr. Mariann Thompson Supervising provider: Autumn Guidry RN, FAMILY PHYSICIAN INDICATION: Chest discomfort Elevated troponin Hyperlipidemia HISTORY: Gender: F; Age: 61 y/o ; Height: 0 cm; Weight: 71.5992464 kg. High Cholesterol; HTN; Chest Pain; Quit smoking <1 year ago. COMPARISON: No comparison. ACCESSION NUMBER(S): [id number]; [id number]; [id number] ORDERING CLINICIAN: MARQUEZ BEAL TECHNIQUE: ONE DAY [...] Electronically signed by: WAQAR MARTINEZ MD Normal [facility] No Panel Informationon 01-23 Normal [facility] 600 DO Work Phone: Tobacco Screening.on 022 Fall risk assessment a) No falls within the last year [facility] 600 DO Work Phone: Tobacco use status [facility] b) No [facility] 600 DO Work Phone: MG MAMM SCREEN 3D NIRMALA CADon 10-30-2021 MG MAMM SCREEN 3D NIRMALA CAD Patient: DEYSI HERNANDEZ Exam Date: 10/30/2021 : 1960 Gender:F Ordering : SHAIKH Ford THOMPSON . Admission #: [id number] Family : Order #: [id number] CLICK HERE TO VIEW EXAM RADIOLOGY REPORT PROCEDURE: MAMMOGRAM SCREENING 3D BILATERAL CAD COMPARISON: MG MAMM NIRMALA SCRN W CAD DIG, 12/05/2012. INDICATIONS: Screening mammography Calculator Name NCI Breast Cancer Risk Assessment Tool 5 Year Breast Cancer Risk 1.00% Lifetime Breast Cancer Risk 5.50% Personal Breast Cancer No Personal Ovarian Cancer No Treatments None Family Cancers None LOCATION: [facility] BREAST COMPOSITION: Scattered areas fibroglandular density. [...] M.D. on 10/31/2021 at 08:52 Normal [facility] Cardiac Stress Teston 2021 [facility] [address] [place] [address], [address] [place] [address] Exercise Stress Test Patient Name: DEYSI HERNANDEZ Ordering Physician: [id number] Beal MD Study Date: 10/17/2021 Reading Physician: [id number] Jaycob Newman MD, [facility] MRN/PID: [id number] Supervising Physician: [id number] Jaycob Newman MD, [facility] Accession/Order#: [id number] Referring Physician: Cyn BEAL Date of : 1960 PCP: Mariann THOMPSON Gender: M Fellow: Height: 162.56 cm Nurse: Jackie Shen RN Weight: 68.95 kg Ice Cream Mixer: KYLE BSA: 1.74 m2 Technologist: BMI: 26.09 kg/m2 Additional Staff: Age: 61 years cc report to: Patient Location: cc report to: [id number] Beal MD Study Type: Cardiac Stress Test Diagnosis/ICD: R07.89-Other chest pain Indication: Chest Pain Atypical Procedure/CPT: Stress Test Interpretation-63953; Stress Test Supervision-[id number] Falls Risk: Low: Patient has low risk [...] The adequate level of stress was achieved. [id number] Jaycob Newman MD, FACC Electronically signed on 10/23/2021 at 12:29:13 PM Final Normal [facility] Cardiac Stress Test Please click on the link to view the study images [facility] Work Phone: Cardiac Stress Test [facility] DO Work Phone: Creatinine and Glomerular fi ltration rate.predicted panel (S/P/Bld)Ordered By: Marquez Beal on 09-18-2021 Creatinine [Mass/Vol] 1.10 mg/dL 0.44-1.03 [facility] Estimated glomerular filtrat ion rate (GFR) non- AmericanOrdered By: Marquez Beal on 09-18-2021 GFR/1.73 sq M.predicted among non-blacks MDRD (S/P/Bld) [Vol rate/Area] 51 mL/Min [facility] No Panel InformationOrdered By: Marquez Beal on 09-18-2021 Estimated GFR () > 60 mL/Min [facility] Comment on above: GFR estimated refere nce range: According to KDOQI guidelines, <60 ml/min/1.73m2 is sufficient to diagnose a patient with chronic kidney disease. Pharmacy Creatinine Clearance (Chem N/A [facility] No Panel Informationon 09-18 9.8\S\9.8 Normal 8.2-10.2 [facility] Work Phone: Comment on above: PERFORMED BY:[place] [address] [place] [place], [place] [id number] MEDICAL DIRECTORJERAMY CALDWELL M.D. 25.1\S\25.1 Normal 22.0-30.0 [facility] Work Phone: 100\S\100 Normal 95-114 [facility] Work Phone: 3.9\S\3.9 Normal 3.5-5.1 [facility] DO Work Phone: 138\S\138 Normal 136-146 [facility] Work Phone: > 60 Normal [facility] Work Phone: Comment on above: GFR estimated refere nce range: According to KDOQI guidelines, <60 ml/min/1.73m2 is sufficient to diagnose a patient with chronic kidney disease. 51\S\51 Normal [facility] 250 DO Work Phone: 1.10\S\1.10 above high threshold 0.44-1.03 -[facility] 250 DO Work Phone: 15\S\15 Normal 9-23 -[facility] 250 DO Work Phone: 95\S\95 Normal 70-100 -[facility] [place] 250 DO Work [...] [Mass/Vol] 9.8 mg/dL 8.2-10.[address] [facility] Serum or plasma chloride sophia surement (moles/volume)Ordered By: Marquez Beal on 09-18-2021 Chloride [Moles/Vol] 100 mmol/L 95-114 [facility] Serum or plasma glucose teagan urement (mass/volume)Ordered By: Marquez Beal on 09-18-2021 Glucose [Mass/Vol] 95 mg/dL 70-[address] [facility] Comment on above: ADA recommended refe rence range Random Glucose Reference Range is dependent on time and content of last meal. Glucose of more than 200 mg/dL in a nonstressed, ambulatory subject supports the diagnosis of Diabetes Mellitus. Serum or plasma potassium me asurement (moles/volume)Ordered By: Marquez Beal on 09-18-2021 Potassium [Moles/Vol] 3.9 mmol/L 3.5-5.1 [facility] Serum or plasma sodium measu rement (moles/volume)Ordered By: Marquez Beal on 09-18-2021 Sodium [Moles/Vol] 138 mmol/L 136-[address] [facility] Serum or plasma total carbon dioxide measurement (moles/volume)Ordered By: Marquez Beal on 09-18-2021 CO2 [Moles/Vol] 25.1 mmol/L 22.0-30.0 [facility] Serum or plasma urea nitroge n measurement (mass/volume)Ordered By: Marquez Beal on 09-18-2021 Urea nitrogen [Mass/Vol] 15 mg/dL 9 [facility] Tobacco Screening.on 022 Adult depression screening assessment No -[facility] 250 DO Work Phone: Fall risk assessment a) No falls within the last year [facility] 250 DO Work Phone: Tobacco use status CPHS a) Yes [facility] 250 DO Work Phone: Tobacco Screening. Yes [facility] 250 DO Work Phone: Bacterial blood cultureOrder ed By: Bong Bansal on 08-19-2021 Bacteria identified Cx Nom (Bld) NO GROWTH 5 DAYS [facility] Basophils Auto (Bld) [#/Vol] Ordered By: Alaina Arce on 08-17-2021 Basophils (Bld) [#/Vol] 0.1 10*3/uL 0.0-0.2 [facility] Basophils/100 WBC Auto (Bld) Ordered By: Alaina Arce on 08-17-2021 Basophils/100 WBC (Bld) 0.7 % . [facility] Blood hemoglobin measurement (mass/volume)Ordered By: Alaina Arce on 08-17-2021 Hemoglobin (Bld) [Mass/Vol] 15.0 g/dL 11.8-15.4 [facility] Blood leukocytes automated c ount (number/volume)Ordered By: Alaina Arce on 08-17-2021 WBC (Bld) [#/Vol] 10.0 10*3/uL 4.5-11.0 [facility] Creatinine and Glomerular fi ltration rate.predicted panel (S/P/Bld)Ordered By: Alaina Arce on 08-17-2021 Creatinine [Mass/Vol] 1.27 mg/dL 0.44-1.03 [facility] Eosinophils Auto (Bld) [#/Vo l]Ordered By: Alaina Arce on 08-17-2021 Eosinophils (Bld) [#/Vol] 0.2 10*3/uL 0.0-0.45 [facility] Eosinophils/100 WBC Auto (Bl d)Ordered By: Alaina Acre on 08-17-2021 Eosinophils/100 WBC (Bld) 1.8 % . [facility] Erythrocyte distribution wid th Auto (RBC) [Ratio]Ordered By: Alaina Arce on 08-17-2021 Erythrocyte distribution width (RBC) [Ratio] 12.7 % 11.9-15.3 [facility] Estimated glomerular filtrat ion rate (GFR) non- AmericanOrdered By: Alaina Arce on 08-17-2021 GFR/1.73 sq M.predicted among non-blacks MDRD (S/P/Bld) [Vol rate/Area] 43 mL/Min [facility] Hematocrit Auto (Bld) [Volum e fraction]Ordered By: Alaina Arce on 08-17-2021 Hematocrit (Bld) [Volume fraction] 42.6 % 34.0-46.4 [facility] Laboratory - Hematology and Cell countsOrdered By: Alaina Arce on 08-17-2021 Nucleated RBC/100 WBC (Bld) [Ratio] 0.0 % 0-0.5 [facility] Lymphocytes Auto (Bld) [#/Vo l]Ordered By: Alaina Arce on 08-17-2021 Lymphocytes (Bld) [#/Vol] 2.4 10*3/uL 1.00-4.8 [facility] Lymphocytes/100 WBC Auto (Bl d)Ordered By: Alaina Arce on 08-17-2021 Lymphocytes/100 WBC (Bld) 23.7 % . [facility] MCH Auto (RBC) [Entitic mass ]Ordered By: Alaina Arce on 08-17-2021 MCH (RBC) [Entitic mass] 31.0 pg 24.7-34.3 [facility] MCHC Auto (RBC) [Mass/Vol]Or dered By: Alaina Arce on 08-17-2021 MCHC (RBC) [Mass/Vol] 35.3 g/dL 32.0-35.0 [facility] MCV Auto (RBC) [Entitic vol] Ordered By: Alaina Arce on 08-17-2021 MCV (RBC) [Entitic vol] 87.8 fL 80-100 [facility] Monocytes Auto (Bld) [#/Vol] Ordered By: Alaina Arce on 08-17-2021 Monocytes (Bld) [#/Vol] 1.0 10*3/uL 0.0-0.8 [facility] Monocytes/100 WBC Auto (Bld) Ordered By: Alaina Arce on 08-17-2021 Monocytes/100 WBC (Bld) 10.2 % . [facility] Neutrophils Auto (Bld) [#/Vo l]Ordered By: Alaina Arce on 08-17-2021 Neutrophils (Bld) [#/Vol] 6.3 10*3/uL 1.8-7.7 [facility] Neutrophils/100 WBC Auto (Bl d)Ordered By: Alaina Arce on 08-17-2021 Neutrophils/100 WBC (Bld) 63.6 % . [facility] No Panel InformationOrdered By: Alaina Arce on 08-17-2021 Estimated GFR () 52 mL/Min [facility] Comment on above: GFR estimated refere nce range: According to KDOQI guidelines, <60 ml/min/1.73m2 is sufficient to diagnose a patient with chronic kidney disease. Pharmacy Creatinine Clearance (Chem 47.54 [facility] Platelet mean volume Auto (B ld) [Entitic vol]Ordered By: Alaina Arce on 08-17-2021 Platelet mean volume (Bld) [Entitic vol] 8.5 fL 6.3-10.7 [facility] Platelets Auto (Bld) [#/Vol] Ordered By: Alaina Arce on 08-17-2021 Platelets (Bld) [#/Vol] 241 10*3/uL 150-450 [facility] RBC Auto (Bld) [#/Vol]Ordere d By: Alaina Arce on 08-17-2021 RBC (Bld) [#/Vol] 4.85 10*6/uL 3.60-5.00 [facility] Serum or plasma calcium teagan urement (mass/volume)Ordered By: Alaina Arce on 08-17-2021 Calcium [Mass/Vol] 8.9 mg/dL 8.2-10.[address] [facility] Serum or plasma chloride sophia surement (moles/volume)Ordered By: Alaina Arce on 08-17-2021 Chloride [Moles/Vol] 101 mmol/L 95-114 [facility] Serum or plasma glucose teagan urement (mass/volume)Ordered By: Alaina Arce on 08-17-2021 Glucose [Mass/Vol] 132 mg/dL 70-[address] [facility] Comment on above: ADA recommended refe rence range Random Glucose Reference Range is dependent on time and content of last meal. Glucose of more than 200 mg/dL in a nonstressed, ambulatory subject supports the diagnosis of Diabetes Mellitus. Serum or plasma potassium me asurement (moles/volume)Ordered By: Alaina Arce on 08-17-2021 Potassium [Moles/Vol] 2.9 mmol/L 3.5-5.1 [facility] Comment on above: Results called at 0721 on 08/17/21 Serum or plasma sodium measu rement (moles/volume)Ordered By: Alaina Arce on 08-17-2021 Sodium [Moles/Vol] 137 mmol/L 136-[address] [facility] Serum or plasma total carbon dioxide measurement (moles/volume)Ordered By: Alaina Arce on 08-17-2021 CO2 [Moles/Vol] 25.3 mmol/L 22.0-30.0 [facility] Serum or plasma urea nitroge n measurement (mass/volume)Ordered By: Alaina Arce on 08-17-2021 Urea nitrogen [Mass/Vol] 17 mg/dL 9-23 [facility] Albumin [Mass/volume] in Ser um or PlasmaOrdered By: Alaina Arce on 08-16-2021 Albumin [Mass/Vol] 3.1 g/dL 3.2-5.[address] [facility] Globulin Calc (S) [Mass/Vol] Ordered By: Alaina Arce on 08-16-2021 Globulin (S) [Mass/Vol] 3.0 g/dL [facility] Protein [Mass/volume] in Ser um or PlasmaOrdered By: Alaina Arce on 08-16-2021 Protein [Mass/Vol] 6.1 g/dL 6.1-7.[address] [facility] Serum or plasma alanine spencer otransferase measurement without P-5'-P (enzymatic activiOrdered By: Alaina Arce on 08-16-2021 ALT No additional P-5'-P [Catalytic activity/Vol] 57 U/L 10-60 [facility] Serum or plasma albumin/glob ulin mass ratioOrdered By: Alaina Arce on 08-16-2021 Albumin/Globulin [Mass ratio] 1.0 {ratio} [facility] Serum or plasma alkaline calvin sphatase measurement (enzymatic activity/volume)Ordered By: Alaina Arce on 08-16-2021 ALP [Catalytic activity/Vol] 76 U/L 32-92 [facility] Serum or plasma aspartate am inotransferase measurement (enzymatic activity/volume)Ordered By: Alaina Arce on 08-16-2021 AST [Catalytic activity/Vol] 47 U/L 10-42 [facility] Serum or plasma total biliru bin measurement (mass/volume)Ordered By: Alaina Arce on 08-16-2021 Bilirubin [Mass/Vol] 1.5 mg/dL 0.3-1.2 [facility] Comment on above: Samples from patient s who have taken Naproxen have shown spurious elevation in Total Bilirubin levels. A metabolite of Naproxen, O-desmethylnaproxen, has been shown to interfere with the Jeneulaik-Grof method for measuring Total Bilirubin. Amphetamine Screen Ql (U)Ord ered By: Alaina Arce on 08-15-2021 Amphetamines Ql (U) Negative Negative [facility] Antithrombin measurement (un its/volume) in platelet poor plasma by chromogenic methodOrdered By: Janet Hamm on 08-15-2021 Antithrombin Chromogenic method Qn (PPP) 113 % 75-135 [facility] Comment on above: Direct Xa inhibitor anticoagulants such as rivaroxaban, apixaban and edoxaban will lead to spuriously elevated antithrombin activity levels possibly masking a deficiency. Barbiturates [Presence] in U rineOrdered By: Alaina Arce on 08-15-2021 Barbiturates Ql (U) Negative Negative [facility] Benzodiazepines [Presence] i n UrineOrdered By: Alaina Arce on 08-15-2021 Benzodiazepines Ql (U) Negative Negative [facility] Beta 2 glycoprotein 1 IgG Ab [Units/volume] in SerumOrdered By: Janet Hamm on 08-15-2021 Beta 2 glycoprotein 1 IgG Qn (S) <9 0-20 [facility] Comment on above: Result Units: GPI Ig [...] IgM Qn (S) <9 0-32 [facility] Comment on above: Result Units: GPI Ig [...] Screen Ql (U) Negative Negative [facility] Comment on above: These are unconfirme d [...] (S) <9 GPL U/mL 0-14 [facility] Comment on above: Negative: <15 Indeterminate: 15 - 20 Low-Med Positive: >20 - 80 High Positive: >80 Cardiolipin IgM Ab [Units/vo lume] in Serum by ImmunoassayOrdered By: Janet Hamm on 08-15-2021 Cardiolipin IgM IA Qn (S) 17 MPL U/mL 0-12 [facility] Comment on above: Negative: <13 Indeterminate: 13 - 20 Low-Med Positive: >20 - 80 High Positive: >80 Cholesterol [Mass/volume] in Serum or PlasmaOrdered By: Janet Hamm on 08-15-2021 Cholesterol [Mass/Vol] 259 mg/dL 140-200 [facility] Comment on above: Chol less than 200 m g/dl low risk Chol 201-239 mg/dl borderline risk Chol 240 mg/dl and greater high risk Cholesterol in LDL Calc [Mas s/Vol]Ordered By: Janet Hamm on 08-15-2021 Cholesterol in LDL [Mass/Vol] 176 mg/dL 0-100 [facility] Comment on above: LDL ATP III CLASSIFI CATION LDL less than 100 mg/dL Optimal LDL 100-129 mg/dL Near or above optimal LDL 130-159 mg/dL Borderline high LDL 160-189 mg/dL High LDL greater than 189 mg/dL Very high Cholesterol in VLDL Calc [Ma ss/Vol]Ordered By: Janet Hamm on 08-15-2021 Cholesterol in VLDL [Mass/Vol] 32 mg/dL [facility] Dilute Vinay's viper venom timeOrdered By: Janet Hamm on 08-15-2021 dRVVT Coag (PPP) [Time] 45.5 s 0.0-47.0 [facility] Free protein S measurementOr dered By: Janet Hamm on 08-15-2021 Protein S Free Ag IA Qn (PPP) 134 % 61-136 [facility] Functional protein C measure mentOrdered By: Janet Hamm on 08-15-2021 Protein C actual/normal Chromogenic method (PPP) [Rel catalytic activity/Vol] 158 % 73-180 [facility] Laboratory - Drug toxicology Ordered By: Alaina Arce on 08-15-2021 Opiates Ql (U) Negative Negative [facility] Lupus anticoagulant [Interpr etation] in Platelet poor plasmaOrdered By: Janet Hamm on 08-15-2021 Lupus anticoagulant (PPP) [Interp] Comment: . [facility] Comment on above: No lupus anticoagula nt was detected. No Panel InformationOrdered By: Janet Hamm on 08-15-2021 Activated Protein C Resist Confirm 2.6 ratio 2.2-3.5 [facility] Comment on above: The APCR result may be falsely increased (masking an abnormal, low APCR result) in patients on direct Xa inhibitor (e.g., rivaroxaban, apixaban, edoxaban) or a direct thrombin inhibitor (e.g., dabigatran) anticoagulant therapy due to assay interference by these drugs. Phencyclidine Screen Ql (U)O rdered By: Alaina Arce on 08-15-2021 Phencyclidine Ql (U) Negative Negative [facility] Plasminogen measurementOrder ed By: Janet Hamm on 08-15-2021 Plasminogen actual/normal Chromogenic method (PPP) [Rel catalytic activity/Vol] 119 % 70-150 [facility] Platelet poor plasma ratio o f lupus anticoagulant-sensitive activated partial thromboOrdered By: Janet Hamm on 08-15-2021 aPTT.lupus sensitive.excess phospholipid actual/normal Coag (PPP) [Relative time] 38.6 sec 0.0-47.6 [facility] Prothrombin gene [id number] mut ation detectionOrdered By: Janet Hamm on 08-15-2021 F2 gene targeted mutation analysis Molgen Nom (Bld/Tiss) See comment . [facility] Comment on above: Result: c.*97G>A - N [...] the F2 gene and a c.1601G>A (p. Jan012Qwi) variant in the F5 gene (commonly referred to as Factor V Leiden) have an approximately 20- fold increased risk for venous thromboembolism. Risks are likely to be even higher in more complex genotype combinations involving the F2 c.*97G>A variant and Factor V Leiden (PMID: 58660230). Additional risk factors include but are not [...] health care providers to discuss results at [phone]). Test Details: Variant analyzed: c.*97G>A, previously referred to as [id number] Methods/Limitations: DNA analysis of the F2 gene [...] developed and its performance characteristics determined by [employer]. It has not been cleared or approved by the Food and Drug Administration. References: Taj S, Briana AK, Gilberto R, Bogdan WW, Yanick WOMACK; ACMG Professional Practice and Guidelines Committee. Addendum: [place] [employer] consensus statement on factor V Leiden mutation testing. Zoë Med. 2020Apr 22. doi: 10.1038/e85391-647-44610-c. PMID: 79499606. Edgardo KRISHNA. Prothrombin Thrombophilia. 2005Sep 11 [Updated 2020Mar 24]. In: Rober MP, Thaddeus HH, Iman RA, et al., editors. Aliyah(Hannah) [Internet]. [place] ([place]): [facility]; [phone]. Available from: https://www.ncbi.nlm.nih.gov/books/RXJ7848/ Ariel S, Briana AK, Aakash X, Grady B, Vidal EB, Siobhan P, Anny CS; [facility] Razor Sharpener Committee. Venous thromboembolism laboratory testing (factor V Leiden and factor II c.*97G>A), 2018 update: a technical standard of the [employer] [employer] and [employer] (ACMG). Zoë Med. 2018 Jan;20(12):7133-6099. doi: 10.1038/g54079-387-2908-q. Epub 2017Nov 22. PMID: 71590988. Evon Negron, PhD, FACMG Otis Guthrie, PhD, FACMG Rehan Goodson, PhD, FACMG Nick Bergeron, PhD, FACMG W Mona Pagan, PhD, FACMG Vee Mera, PhD, FACMG Gregoria Carrasco, PhD, FAC Performed at: CB - [facility] [id number] Employment Law Specialist: Harshad Acosta PhD, Phone: [phone] Performed at: BN - [facility] [id number] Employment Law Specialist: Veronica Ring MD, Phone: [phone] Performed at: - [facility] [address] [place], [place] [id number] Employment Law Specialist: Becky Cabezas [facility], Phone: [phone] Serum or plasma high density lipoprotein (HDL) cholesterol measurementOrdered By: Janet Hamm on 08-15-2021 Cholesterol in HDL [Mass/Vol] 50 mg/dL 35-85 [facility] Comment on above: HDL CHOL ATP-III CLA SSIFICATION Cardiovascular Risk HDL > or equal to 60 mg/dL LOW HDL < 40 mg/dL HIGH Serum or plasma homocysteine measurement (moles/volume)Ordered By: Janet Hamm on 08-15-2021 Homocysteine [Moles/Vol] 12.8 umol/L 0.0-14.5 [facility] Serum or plasma total choles terol/high density lipoprotein (HDL) cholesterol mass ratOrdered By: Janet Hamm on 08-15-2021 Cholesterol.total/Chol esterol in HDL [Mass ratio] 5.2 {ratio} <5.0 [facility] Triglyceride [Mass/volume] i n Serum or PlasmaOrdered By: Janet Hamm on 08-15-2021 Triglyceride [Mass/Vol] 164 mg/dL 35-149 [facility] Comment on above: TRIG ATP III CLASSIF ICATION TRIG less than 150 mg/dL Normal TRIG 150-199 mg/dL Borderline high TRIG 200-500 mg/dL High TRIG greater than 500 mg/dL Very high Standard traceable to the Center for Disease Conrtrol and Prevention (CDC) test method. Urine cocaine detectionOrder ed By: Alaina Arce on 08-15-2021 Cocaine Ql (U) Negative Negative [facility] Urine culture routineOrdered By: Alaina Arce on 08-15-2021 Bacteria identified Cx Nom (U) 2 Days [facility] aPTT.lupus sensitive (LA scr een)Ordered By: Janet Hamm on 08-15-2021 aPTT.lupus sensitive Coag (PPP) [Time] 35.2 sec 0.0-51.9 [facility] aPTT.lupus sensitive/aPTT.sheryl pus sensitive W excess phospholipid (screen to confirm raOrdered By: Janet Hamm on 08-15-2021 aPTT.lupus sensitive/aPTT.lupus sensitive W excess phospholipid Coag (PPP) [Ratio] 0.94 Ratio 0.00-1.34 [facility] Activated partial thrombopla stin time (aPTT) in platelet poor plasma by coagulation aOrdered By: Bong Bansal on 08-14-2021 aPTT Coag (PPP) [Time] 28.2 s 25.1-36.5 [facility] Bacterial blood cultureOrder ed By: Bong Bansal on 08-14-2021 Bacteria identified Cx Nom (Bld) NO GROWTH 5 DAYS [facility] Creatinine [Mass/volume] in UrineOrdered By: Alaina Arce on 08-14-2021 Creatinine (U) [Mass/Vol] 74.6 mg/dL [facility] Comment on above: No reference range e stablished Glucose Glucometer (BldC) [M ass/Vol]Ordered By: Alaina Arce on 08-14-2021 Glucose [Mass/Vol] 102 mg/dL [facility] Comment on above: Random Glucose Refer ence Range is dependent on time and content of last meal. Glucose of more than 200 mg/dL in a nonstressed, ambulatory subject supports the diagnosis of Diabetes Mellitus. Glucose mean value [Mass/vol ume] in Blood Estimated from glycated hemoglobinOrdered By: Janet Hamm on 08-14-2021 Average glucose Estimated from glycated hemoglobin (Bld) [Mass/Vol] 126 mg/dL [facility] Hemoglobin A1c percentageOrd ered By: Janet Hamm on 08-14-2021 HbA1c (Bld) [Mass fraction] 6.0 % 4.3-5.6 [facility] Comment on above: Increased risk for d iabetes: 5.7 - 6.4 diabetes: >6.4 glycemic control for adults with diabetes: <7.0 Laboratory - Chemistry and C hemistry - challengeOrdered By: Alaina Arce on 08-14-2021 Magnesium [Mass/Vol] 2.3 mg/dL 1.6-2.6 [facility] Laboratory - CoagulationOrde red By: Bong Bansal on 08-14-2021 PT Coag (PPP) [Time] 11.8 s 9.0-12.9 [facility] Platelet poor plasma interna tional normalized ratio (INR) by coagulation assay (relatOrdered By: Bong Bansal on 08-14-2021 INR Coag (PPP) [Relative time] 1.1 {INR} [facility] Comment on above: INR Therapeutic Rang e [...] 08-14-2021 Protein (U) [Mass/Vol] 100 mg/dL 0-9 [facility] Renin activityOrdered By: Emma Arce on 08-14-2021 Renin (P) [Catalytic activity/Vol] 27.141 ng/mL/hr 0.167-5.38 0 [facility] Comment on above: This test was develo ped and its performance characteristics determined by [employer]. It has not been cleared or approved by the Food and Drug Administration. Performed at: [facility] [place] [id number] Employment Law Specialist: Veronica Ring MD, Phone: [phone] Serum or plasma aldosterone measurement (mass/volume)Ordered By: Alaina Arce on 08-14-2021 Aldosterone [Mass/Vol] 7.8 ng/dL 0.0-30.0 [facility] Comment on above: This test was develo ped and its performance characteristics determined by [employer]. It has not been cleared or approved by the Food and Drug Administration. Performed at: [facility] [id number] Employment Law Specialist: Veronica Ring MD, Phone: [phone] Urine protein/creatinine rat ioOrdered By: Alaina Arce on 08-14-2021 Protein/Creatinine (U) [Ratio] 1340 mg/g{Cre} 0-200 [facility] Urine sodium measurement (mo les/volume)Ordered By: Alaina Arce on 08-14-2021 Sodium (U) [Moles/Vol] 54.0 mmol/L [facility] [place] Comment on above: No reference range e stablished AMYLASEon 08-13-2021 Amylase [Catalytic activity/Vol] 80 U/L Normal 25-115 [facility] Comment on above: Performed By: #### A MY, CMP, LIPA #### [facility] [address] [place] [address] Dr. Moreno Amato Automated erythrocytes count in urine sediment (number/area)Ordered By: Alaina Arce on 08-13-2021 RBC Auto (Urine sed) [#/Area] 5-9 [HPF] 0-4 [facility] Automated leukocytes count i n urine sediment (number/area)Ordered By: Alaina Arce on 08-13-2021 WBC Auto (Urine sed) [#/Area] 20-49 [HPF] 0-4 [facility] Bilirubin Test strip Ql (U)O rdered By: Alaina Arce on 08-13-2021 Bilirubin Ql (U) Negative Negative [facility] CBC AUTO DIFFon 08-13-2021 BASO # 0.1 103/ul Normal 0.0-0.1 [facility] Comment on above: Performed By: #### C BC #### [facility] [address] [place] [address] Dr. Moreno Amato Basophils/100 WBC (Bld) 0.6 % Normal 0.2-2.0 [facility] Comment on above: Performed By: #### C BC #### [facility] [address] [place] [address] Dr. Moreno Amato EO # 0.1 103/ul Normal 0.0-0.7 [facility] Comment on above: Performed By: #### C BC #### [facility] [address] [place] [address] Dr. Moreno Amato Eosinophils/100 WBC (Bld) 0.6 % Critically low 0.9-7.0 [facility] Comment on above: Performed By: #### C BC #### [facility] [address] [place] [address] Dr. Moreno Amato Erythrocyte distribution width (RBC) [Ratio] 11.9 % Normal 11.0-15.0 [facility] Comment on above: Performed By: #### C BC #### [facility] [address] [place] [address] Dr. Moreno Amato Hematocrit (Bld) [Volume fraction] 51.0 % Critically high 36.0-48.0 [facility] Comment on above: Performed By: #### C BC #### [facility] [address] [address] [address] Moreno Amato Hemoglobin (Bld) [Mass/Vol] 18.2 g/dL Critically high 12.0-16.0 [facility] Comment on above: Performed By: #### C BC #### [facility] [address] [address] [address] Moreno Amato IG # 0.04 10e3/ul Critically high 0.00-0.03 [facility] Comment on above: Performed By: #### C BC #### [facility] [address] [address] [address] Moreno Amato IG % 0.3 % Normal 0.0-0.5 [facility] Comment on above: Performed By: #### C BC #### [facility] [address] [address] [address] Moreno Amato LYMPH # 2.2 103/ul Normal 1.2-3.8 [facility] Comment on above: Performed By: #### C BC #### [facility] [address] [address] [address] Moreno Amato Lymphocytes/100 WBC (Bld) 17.1 % Critically low 20.5-60.0 [facility] Comment on above: Performed By: #### C BC #### [facility] [address] [address] [address] Moreno Amato MANUAL DIFF REQ NO Normal [facility] Comment on above: Performed By: #### C BC #### [facility] [address] [address] [address] Moreno Amato MCH (RBC) [Entitic mass] 30.4 pg Normal 26.7-34.0 [facility] Comment on above: Performed By: #### C BC #### [facility] [address] [address] [address] Moreno Amato MCHC (RBC) [Mass/Vol] 35.7 g/dL Critically high 29.9-35.2 [facility] Comment on above: Performed By: #### C BC #### [facility] [address] [address] [address] Moreno Amato MCV (RBC) [Entitic vol] 85.1 fL Normal 81.0-99.0 [facility] Comment on above: Performed By: #### C BC #### [facility] [address] [address] [address] Moreno Amato MONO # 1.3 103/ul Critically high 0.3-0.8 [facility] Comment on above: Performed By: #### C BC #### [facility] [address] [place] [address] Dr. Moreno Amato Monocytes/100 WBC (Bld) 10.0 % Normal 1.7-12.0 [facility] Comment on above: Performed By: #### C BC #### [facility] [address] [place] [address] Dr. Moreno Amato NEUT # 9.3 103/ul Critically high 1.4-6.5 [facility] Comment on above: Performed By: #### C BC #### [facility] [address] [place] [address] Dr. Moreno Amato Neutrophils/100 WBC (Bld) 71.4 % Normal 43.0-75.0 [facility] Comment on above: Performed By: #### C BC #### [facility] [address] [place] [address] Dr. Moreno Amato Platelet mean volume (Bld) [Entitic vol] 9.8 fL Normal 9.5-13.5 [facility] Comment on above: Performed By: #### C BC #### [facility] [address] [place] [address] Dr. Moreno Amato PLT 242 103/ul Normal 150-450 [facility] Comment on above: Performed By: #### C BC #### [facility] [address] [place] [address] Dr. Moreno Amato RBC 5.99 106/ul Critically high 4.20-5.40 [facility] Comment on above: Performed By: #### C BC #### [facility] [address] [place], [place] [address] Dr. Moreno Amato WBC 13.0 103/ul Critically high 4.0-11.0 [facility] Comment on above: Performed By: #### C #### [facility] [address] [place], [place] [address] ABD/PELVIS WO CONon [...] Vinay MANN Date: 2021-08-13 03:36 Normal [facility] CT STROKE HEAD WOon 08-14-19 CT [...] MAVIS ROSSI Date: 2021-08-13 07:39 Normal [facility] CULTURE URINEon 08-13-2021 CULTURE URINE Culture Observations : LIGHT GROWTH OF MIXED GENITAL ZOE. NO POTENTIAL PATHOGENS SEEN. Normal [facility] Comment on above: Performed By: #### A MY, CMP, LIPA #### [facility] [address] [place] [address] Dr. Moreno Amato Color Auto (U)Ordered By: Emma Arce on 08-13-2021 Color (U) Yellow [facility] Covid-19 PCR (CVDTBH)on 07-20 SARS-CoV-2 (COVID-19) RNA ELISA+probe Ql (Unsp spec) Not detected Normal NOT DETECTED [facility] Comment on above: Result Comment: When [...] for this test is supported by the Field Operator of Health and Human Service's declaration that [...] used). Performed By: #### C VDTB #### [facility] [address] [place] [address] Dr. Moreno Amato ER URINE PROFILEon 2 Bilirubin Ql (U) Negative Normal NEGATIVE [facility] Comment on above: Performed By: #### E RUR, UMICRO #### [facility] [address] [place] [address] Dr. Moreno Amato Clarity (U) CLEAR Normal CLEAR [facility] Comment on above: Performed By: #### E RUR, UMICRO #### [facility] [address] [place] [address] Dr. Moreno Amato Color (U) LT. YELLOW Normal YELLOW [facility] Comment on above: Performed By: #### E RUR, UMICRO #### [facility] [address] [place] [address] Dr. Moreno Amato ERUAHD A micrscopic examina tion will be performed if indicated. Normal [facility] Comment on above: Performed By: #### E RUR, UMICRO #### [facility] [address] [place] [address] Dr. Moreno Amato Glucose Ql (U) Negative Normal NEGATIVE [facility] Comment on above: Performed By: #### E RUR, UMICRO #### [facility] [address] [place] [address] Dr. Moreno Amato Hemoglobin Ql (U) MODERATE Abnormal NEGATIVE [facility] Comment on above: Performed By: #### E RUR, UMICRO #### [facility] [address] [place] [address] Dr. Moreno Amato Ketones Ql (U) Negative Normal NEGATIVE [facility] Comment on above: Performed By: #### E RUR, UMICRO #### [facility] [address] [place] [address] Dr. Moreno Amato LEUKOCYTES SMALL Abnormal NEGATIVE [facility] Comment on above: Performed By: #### E RUR, UMICRO #### [facility] [address] [place] [address] Dr. Moreno Amato Nitrite Ql (U) Positive Abnormal NEGATIVE [facility] Comment on above: Performed By: #### NAOMI FRANCISCO #### [facility] [address] [place] [address] Dr. Moreno Amato pH (U) 6.0 [pH] Normal 5-9 [facility] Comment on above: Performed By: #### NAOMI FRANCISCO #### [facility] [address] [place] [address] Dr. Moreno Amato SPEC GRAVITY 1.020 Normal 1.005-<=1. 025 [facility] Comment on above: Performed By: #### NAOMI FRANCISCO #### [facility] [address] [place] [address] Dr. Moreno Amato UA PROTEIN >300 Abnormal NEGATIVE/ TRACE [facility] Comment on above: Performed By: #### NAOMI FRANCISCO #### [facility] [address] [place] [address] Dr. Moreno Amato UR MICRO IND INDICATED Normal [facility] Comment on above: Performed By: #### NAOMI FRANCISCO #### [facility] [address] [place] [address] Dr. Moreno Amato Urobilinogen Qn (U) 0.2 {[place]'U}/dL Normal 0.2 - 1. 0 [facility] Comment on above: Performed By: #### NAOMI FRANCISCO #### [facility] [address] [place] [address] Dr. Moreno Amato Ketones Auto test strip (U) [Mass/Vol]Ordered By: Alaina Arce on 08-13-2021 Ketones (U) [Mass/Vol] Negative Negative [facility] LACTATE/LACTIC ACIDon 2021 Lactate [Moles/Vol] 1.1 mmol/L Normal 0.4-1.9 [facility] Comment on above: Performed By: #### A MY, CMP, LIPA #### [facility] [address] [address] [address] Moreno Amato LIPASEon 08-13-2021 Lipase [Catalytic activity/Vol] 524.0 U/L Critically high 73.0-393.0 [facility] Comment on above: Performed By: #### A MY, CMP, LIPA #### [facility] [address] [address] [address] Moreno Amato Laboratory - Chemistry and C hemistry - challengeOrdered By: Alaina Arce on 08-13-2021 Lactate [Moles/Vol] 1.6 mmol/L 0.5-2.2 [facility] - UrinalysisOrder ed By: Alaina Arce on 08-13-2021 Hyaline casts LM Ql (Urine sed) 9-19 [LPF] 0-8 [facility] Nitrite Test strip Ql (U)Ord ered By: Alaina Arce on 08-13-2021 Nitrite Ql (U) Positive Negative [facility] POINT OF CARE GLUCOSEon 07-20 Glucose [Mass/Vol] 129 mg/dL Critically high 74-106 [facility] Comment on above: Performed By: #### A MY, CMP, LIPA #### [facility] [address] [place] [address] Dr. Moreno Amato PROF 14(COMP METB)on 022 Albumin [Mass/Vol] 3.4 g/dL Normal 3.4-5.0 [facility] Comment on above: Performed By: #### A MY, CMP, LIPA #### [facility] [address] [place] [address] Dr. Moreno Amato Albumin/Globulin [Mass ratio] 0.8 {ratio} Normal [facility] Comment on above: Performed By: #### A MY, CMP, LIPA #### [facility] [address] [place] [address] Dr. Moreno Amato ALP [Catalytic activity/Vol] 105 U/L Normal 46-116 [facility] Comment on above: Performed By: #### A MY, CMP, LIPA #### [facility] [address] [address] [address] Moreno Amato ALT [Catalytic activity/Vol] 22 U/L Normal 14-59 [facility] Comment on above: Performed By: #### A MY, CMP, LIPA #### [facility] [address] [address] [address] Moreno Amato Anion gap [Moles/Vol] 11.6 mmol/L Normal [facility] Comment on above: Performed By: #### A MY, CMP, LIPA #### [facility] [address] [address] [address] Moreno Amato AST [Catalytic activity/Vol] 22 U/L Normal 15-37 [facility] Comment on above: Performed By: #### A MY, CMP, LIPA #### [facility] [address] [place] [address] Dr. Moreno Amato Bilirubin [Mass/Vol] 0.7 mg/dL Normal 0.2-1.0 [facility] Comment on above: Performed By: #### A MY, CMP, LIPA #### [facility] [address] [address] [address] Moreno Amato Calcium [Mass/Vol] 9.6 mg/dL Normal 8.5-10.1 [facility] Comment on above: Performed By: #### A MY, CMP, LIPA #### [facility] [address] [place] [address] Dr. Moreno Amato Chloride [Moles/Vol] 97 mmol/L Critically low 98-107 [facility] Comment on above: Performed By: #### A MY, CMP, LIPA #### [facility] [address] [address] [address] Moreno Amato CO2 [Moles/Vol] 31.2 mmol/L Normal 21.0-32.0 [facility] Comment on above: Performed By: #### A MY, CMP, LIPA #### [facility] [address] [address] [address] Moreno Amato Creatinine [Mass/Vol] 1.64 mg/dL Critically high 0.55-1.02 [facility] Comment on above: Performed By: #### A MY, CMP, LIPA #### [facility] [address] [address] [address] Moreno Amato EGFR-AF GUAMANIAN 39 mL/min/1.73m2 Critically low >=60 [facility] Comment on above: Performed By: #### A MY, CMP, LIPA #### [facility] [address] [place] [address] Dr. Moreno Amato EGFR-NON AF GUAMANIAN 32 mL/min/1.73m2 Critically low >=60 [facility] Comment on above: Performed By: #### A MY, CMP, LIPA #### [facility] [address] [place] [address] Dr. Moreno Amato Globulin (S) [Mass/Vol] 4.1 g/dL Normal [facility] Comment on above: Performed By: #### A MY, CMP, LIPA #### [facility] [address] [place] [address] Dr. Moreno Amato Glucose [Mass/Vol] 110 mg/dL Critically high 74-106 [facility] Comment on above: Performed By: #### A MY, CMP, LIPA #### [facility] [address] [place] [address] Dr. Moreno Amato Potassium [Moles/Vol] 2.8 mmol/L Critically low 3.5-5.1 [facility] Comment on above: Performed By: #### A MY, CMP, LIPA #### [facility] [address] [place] [address] Dr. Moreno Amato Protein [Mass/Vol] 7.5 g/dL Normal 6.4-8.2 [facility] Comment on above: Performed By: #### A MY, CMP, LIPA #### [facility] [address] [place] [address] Dr. Moreno Amato Sodium [Moles/Vol] 137 mmol/L Normal 136-145 [facility] Comment on above: Performed By: #### A MY, CMP, LIPA #### [facility] [address] [place] [address] Dr. Moreno Amato Urea nitrogen [Mass/Vol] 26.0 mg/dL Critically high 7.0-18.0 [facility] Comment on above: Performed By: #### A MY, CMP, LIPA #### [facility] [address] [address] [address] Moreno Amato Urea nitrogen/Creatinine [Mass ratio] 15.9 mg/mg Normal [facility] Comment on above: Performed By: #### A MY, CMP, LIPA #### [facility] [address] [address] [address] Moreno Amato Protein Auto test strip (U) [Mass/Vol]Ordered By: Alaina Arce on 08-13-2021 Protein (U) [Mass/Vol] mg/dL Negative [facility] Specific gravity Auto test s trip (U) [Rel density]Ordered By: Alaina Arce on 08-13-2021 Specific gravity (U) [Rel density] 1.017 1.001-1.03 0 [facility] Squamous epithelial cells de tection in urine sediment by light microscopyOrdered By: Alaina Arce on 08-13-2021 Epithelial cells.squamous LM Ql (Urine sed) 3-4 [HPF] 0-2 [facility] TROPONIN, HIGH SENSITIVITYon 08-13-2021 HSTROP 91.0 pg/mL Critically high 4.0-51.3 [facility] Comment on above: Result Comment: CUT- OFF POINTS HAVE BEEN ESTABLISHED BASED ON THE FOURTH UNIVERSAL DEFINITIONS OF MYOCARDIAL INFARCTION. THE UPPER REFERENCE LIMIT (URL) OF TROPONIN, DEFINED THE 99TH PERCENTILE OF cTnI DISTRIBUTION IN A REFERENCE POPULATION, HAS BEEN CONFIRMED THE DECISION THRESHOLD FOR [place] DIAGNOSIS. Performed By: #### A MY, CMP, LIPA #### [facility] [address] [address] [address] Moreno Amato HSTROP 109.0 pg/mL Critically high 4.0-51.3 [facility] Comment on above: Result Comment: CUT- OFF POINTS HAVE BEEN ESTABLISHED BASED ON THE FOURTH UNIVERSAL DEFINITIONS OF MYOCARDIAL INFARCTION. THE UPPER REFERENCE LIMIT (URL) OF TROPONIN, DEFINED THE 99TH PERCENTILE OF cTnI DISTRIBUTION IN A REFERENCE POPULATION, HAS BEEN CONFIRMED THE DECISION THRESHOLD FOR [place] DIAGNOSIS. Performed By: #### H STROPN #### [facility] [address] [place] [address] Dr. Moreno Amato Troponin I.cardiac [Mass/vol ume] in Serum or Plasma by High sensitivity methodOrdered By: Alaina Arce on 08-13-2021 Troponin I.cardiac High sensitivity method [Mass/Vol] 50 pg/mL 0-15 [facility] Comment on above: Critical value result called at 1736 on 08/13/21 URINE MICROSCOPIC ONLYon BACTERIA SMALL Abnormal NONE SEEN [facility] Comment on above: Performed By: #### E RUR UMICRO #### [facility] [address] [place] [address] Dr. Moreno Amato Bacteria identified Cx Nom (U) INDICATED Normal [facility] Comment on above: Performed By: #### E RUR, UMICRO #### [facility] [address] [place] [address] Dr. Moreno Amato CAST SEEN Abnormal NONE SEEN [facility] Comment on above: Performed By: #### E RUR, UMICRO #### [facility] [address] [place] [address] Dr. Moreno Amato Crystals LM Nom (Urine sed) NONE SEEN Normal NONE SEEN [facility] Comment on above: Performed By: #### E RUR, UMICRO #### [facility] [address] [place] [address] Dr. Moreno Amato Epithelial cells LM Ql (Urine sed) FEW Abnormal NONE SEEN /RARE [facility] Comment on above: Performed By: #### E RUR, UMICRO #### [facility] [address] [place] [address] Dr. Moreno VASQUES CAST FEW Normal [facility] Comment on above: Performed By: #### E RUR, UMICRO #### [facility] [address] [place] [address] Dr. Moreno Amato MUCOUS NONE SEEN Normal NONE SEEN [facility] Comment on above: Performed By: #### E RUR, UMICRO #### [facility] [address] [address] [address] Moreno Amato RBC 2-5 Abnormal 0-2 [facility] Comment on above: Performed By: #### NAOMI FRANCISCO #### [facility] [address] [address] [address] Moreno Amato WBC 20-50 Abnormal NONE SEEN [facility] Comment on above: Performed By: #### NAOMI FRANCISCO #### [facility] [address] [address] [address] Moreno Amato Urine bacteria detection by automated methodOrdered By: Alaina Arce on 08-13-2021 Bacteria Auto Ql (U) None seen None Seen [facility] Urine clarity by refractomet ry automatedOrdered By: Alaina Arce on 08-13-2021 Clarity Refractometry automated (U) Cloudy Clear [facility] Urine culture routineOrdered By: Alaina Arce on 08-13-2021 Bacteria identified Cx Nom (U) 2 Days [facility] Urine glucose measurement by automated test strip (mass/volume)Ordered By: Alaina Arce on 08-13-2021 Glucose Auto test strip (U) [Mass/Vol] Normal mg/dL Normal [facility] Urine hemoglobin detection b y automated test stripOrdered By: Alaina Arce on 08-13-2021 Hemoglobin Auto test strip Ql (U) 1+ Negative [facility] Urine leukocyte esterase det ection by automated test stripOrdered By: Alaina Arce on 08-13-2021 Leukocyte esterase Auto test strip Ql (U) 1+ Negative [facility] Urobilinogen Auto test strip (U) [Mass/Vol]Ordered By: Alaina Arce on 08-13-2021 Urobilinogen (U) [Mass/Vol] Normal mg/dL Normal [facility] XR CHEST 1 Von 08-13-2021 XR CHEST [...] Vinay MANN Date: 2021-08-13 06:28 Normal [facility] pH Auto test strip (U)Ordere d By: Alaina Arce on 08-13-2021 pH (U) 5.5 [pH] 5.0-9.0 [facility] [place] DIGITAL SCREEN SELF REFERRAL W OR WO CAD BILATERALon 12-16-2020 [facility] [place] DIGITAL SCREEN SELF REFERRAL [...] to the patient regarding the results. The [employer] recommends annual mammograms for women 40 years and older. Interpreted by: Uvaldo Read Signed by: Uvaldo Read 12/16/20 Final result Normal [facility] Vital Signs Date Time Vital Sign Value Performing Clinician Facility 02-14-2023 09:56-0500 Inhaled oxygen flow rate 1 L/min MD Shaikh Thompson Work Phone: [facility] 02-14-2023 08:00-0500 Body temperature 97.7 [degF] MD Shaikh Thompson Work Phone: [facility] 02-14-2023 08:00-0500 Diastolic blood pressure 69 mm[Hg] MD Shaikh Thompson Work Phone: [facility] 02-14-2023 08:00-0500 Heart rate 78 /min MD Shaikh Thompson Work Phone: [facility] 02-14-2023 08:00-0500 Respiratory rate 20 /min MD Shaikh Thompson Work Phone: [facility] 02-14-2023 08:00-0500 SaO2% (BldA) [Mass fraction] 95 % MD Shaikh Thompson Work Phone: [facility] 02-14-2023 08:00-0500 Systolic blood pressure 118 mm[Hg] MD Shaikh Thompson Work Phone: [facility] 02-14-2023 05:51-0500 Body weight 69.9 kg MD Shaikh Thompson Work Phone: [facility] 02-13-2023 12:53-0500 Body height 157.48 cm MD Shaikh Thompson Work Phone: [facility] 02-10-2023 17:00-0500 Heart rate 85 /min [facility] 02-10-2023 16:38-0500 Diastolic blood pressure 80 mm[Hg] [facility] 02-10-2023 16:38-0500 Heart rate 80 /min [facility] 02-10-2023 16:38-0500 Mean blood pressure 99 mm[Hg] [facility] 02-10-2023 16:38-0500 Respiratory rate 18 /min [facility] 02-10-2023 16:38-0500 SaO2% (BldA) [Mass fraction] 95 % [facility] 02-10-2023 16:38-0500 Systolic blood pressure 138 mm[Hg] [facility] 02-10-2023 15:40-0500 Diastolic blood pressure 92 mm[Hg] [facility] 02-10-2023 15:40-0500 Heart rate 90 /min [facility] 02-10-2023 15:40-0500 Mean blood pressure 105 mm[Hg] [facility] 02-10-2023 15:40-0500 Respiratory rate 20 /min [facility] 02-10-2023 15:40-0500 SaO2% (BldA) [Mass fraction] 94 % [facility] 02-10-2023 15:40-0500 Systolic blood pressure 132 mm[Hg] [facility] 02-10-2023 14:42-0500 Body temperature 98.24 [degF] [facility] 02-10-2023 14:42-0500 Heart rate 93 /min [facility] 02-10-2023 14:42-0500 Respiratory rate 24 /min [facility] 02-10-2023 14:00-0500 Blood Pressure Location Jaxson Johnson [facility] 02-10-2023 14:00-0500 Body temperature 96.8 [degF] Jaxson Johnson [facility] 02-10-2023 14:00-0500 Diastolic blood pressure 90 mm[Hg] Jaxson Johnson [facility] 02-10-2023 14:00-0500 Heart rate 88 /min Jaxson Johnson [facility] 02-10-2023 14:00-0500 SaO2% (BldA) [Mass fraction] 92 % Jaxson Johnson [facility] 02-10-2023 14:00-0500 Systolic blood pressure 140 mm[Hg] Jaxson Johnson [facility] 10-15-2022 17:36-0400 Blood Pressure Location Damion Cheek [facility] 10-15-2022 17:36-0400 Body temperature 97.34 [degF] Damion Cheek [facility] 10-15-2022 17:36-0400 Diastolic blood pressure 76 mm[Hg] Damion Cheek [facility] 10-15-2022 17:36-0400 Heart rate 60 /min Damion Robledopsey [facility] 10-15-2022 17:36-0400 SaO2% (BldA) [Mass fraction] 96 % Damion Cheek [facility] 10-15-2022 17:36-0400 Systolic blood pressure 122 mm[Hg] Damion Cheek [facility] 10-09-2022 14:24-0400 Body height 157.5 cm Gurmeet Ojeda MD Work Phone: [facility] 10-09-2022 14:24-0400 Body temperature 97.5 [degF] Gurmeet Ojeda MD Work Phone: [facility] 10-09-2022 14:24-0400 Body weight 71.26 kg Gurmeet Ojeda MD Work Phone: [facility] 10-09-2022 14:24-0400 Diastolic blood pressure 60 mm[Hg] Gurmeet Ojeda MD Work Phone: [facility] 10-09-2022 14:24-0400 Heart rate 60 /min Gurmeet Ojeda MD Work Phone: [facility] 10-09-2022 14:24-0400 Systolic blood pressure 91 mm[Hg] Gurmeet Ojeda MD Work Phone: [facility] 08-09-2022 14:56-0400 Body height 157.5 cm Gurmeet Ojeda MD Work Phone: [facility] 08-09-2022 14:56-0400 Body temperature 97.7 [degF] Gurmeet Ojeda MD Work Phone: [facility] 08-09-2022 14:56-0400 Body weight 72.53 kg Gurmeet Ojeda MD Work Phone: [facility] 08-09-2022 14:56-0400 Diastolic blood pressure 64 mm[Hg] Gurmeet Ojeda MD Work Phone: [facility] 08-09-2022 14:56-0400 Heart rate 65 /min Gurmeet Ojeda MD Work Phone: [facility] 08-09-2022 14:56-0400 Systolic blood pressure 98 mm[Hg] Gurmeet Ojeda MD Work Phone: [facility] 06-14-2022 12:57-0400 Blood Pressure Location Ayala SALAM [facility] 06-14-2022 12:57-0400 Diastolic blood pressure 74 mm[Hg] Ayala SALAM [facility] 06-14-2022 12:57-0400 Heart rate 80 /min Ayala SALAM [facility] 06-14-2022 12:57-0400 Respiratory rate 16 /min Ayala SALAM [facility] 06-14-2022 12:57-0400 Systolic blood pressure 118 mm[Hg] Ayala SALAM [facility] 06-06-2022 10:13-0400 Blood Pressure Location TRUDY NGUYỄN [facility] 06-06-2022 10:13-0400 Diastolic blood pressure 88 mm[Hg] TRUDY NGUYỄN [facility] 06-06-2022 10:13-0400 Heart rate 74 /min TRUDY NGUYỄN [facility] 06-06-2022 10:13-0400 Systolic blood pressure 144 mm[Hg] TRUDY NGUYỄN [facility] 05-23-2022 10:41-0400 Blood Pressure Location TRUDY NGUYỄN [facility] 05-23-2022 10:41-0400 Diastolic blood pressure 85 mm[Hg] TRUDY NGUYỄN [facility] 05-23-2022 10:41-0400 Heart rate 72 /min TRUDY NGUYỄN [facility] 05-23-2022 10:41-0400 Systolic blood pressure 127 mm[Hg] TRUDY NGUYỄN [facility] 04-11-2022 11:01-0500 Blood Pressure Location TRUDY NGUYỄN [facility] 04-11-2022 11:01-0500 Diastolic blood pressure 88 mm[Hg] TRUDY NGUYỄN [facility] 04-11-2022 11:01-0500 Heart rate 71 /min TRUDY NGUYỄN [facility] 04-11-2022 11:01-0500 Systolic blood pressure 146 mm[Hg] TRUDY ADRIAN [facility] 03-19-2022 16:35-0500 Body height 163.83 cm Padmini Sam Other [employer] Other 03-19-2022 16:35-0500 Body mass index (BMI) [Ratio] 27.37 kg/m2 Padmini Sam Other [employer] Other 03-19-2022 16:35-0500 Body temperature 98.9 [degF] Padmini Sam Other [employer] Other 03-19-2022 16:35-0500 Body weight 73.48 kg Padmini Sam Other [employer] Other 03-19-2022 16:35-0500 Respiratory rate 18 /min Padmini Sam Other [employer] Other 03-19-2022 16:35-0500 SaO2% (BldA) [Mass fraction] 96 % Padmini Sam Other [employer] Other 03-13-2022 10:12-0500 Diastolic blood pressure 59 mm[Hg] MD Shaikh Thompson Work Phone: [facility] 03-13-2022 10:12-0500 Heart rate 77 /min MD Shaikh Thompson Work Phone: [facility] 03-13-2022 10:12-0500 Respiratory rate 18 /min MD Shaikh Thompson Work Phone: [facility] 03-13-2022 10:12-0500 SaO2% (BldA) [Mass fraction] 98 % MD Shaikh Thompson Work Phone: [facility] 03-13-2022 10:12-0500 Systolic blood pressure 93 mm[Hg] MD Shaikh Thompson Work Phone: [facility] 03-13-2022 07:54-0500 Body height 162.56 cm MD Shaikh Thompson Work Phone: [facility] 03-13-2022 07:54-0500 Body temperature 98 [degF] MD Shaikh Thompson Work Phone: [facility] 03-13-2022 07:54-0500 Body weight 73.48 kg MD Shaikh Thompson Work Phone: [facility] 03-12-2022 08:58-0500 Body height 160.02 cm Shaikh Donna Work Phone: [facility] DO Work Phone: 03-12-2022 08:58-0500 Body mass index (BMI) [Ratio] 28.7 kg/m2 Shaikh Donna Work Phone: [facility] DO Work Phone: 03-12-2022 08:58-0500 Body surface area Derived from formula 1.77 m2 Shaikh Donna Work Phone: [facility] DO Work Phone: 03-12-2022 08:58-0500 Body weight 73.48 kg Shaikh Donna Work Phone: [facility] DO Work Phone: 03-12-2022 08:58-0500 Diastolic blood pressure 78 mm[Hg] Shaikh Felysarah Work Phone: [facility] DO Work Phone: 03-12-2022 08:58-0500 Heart rate 66 /min Shaikh Jabierwad Work Phone: [facility] DO Work Phone: 03-12-2022 08:58-0500 Systolic blood pressure 110 mm[Hg] Shaikh Jabierwad Work Phone: [facility] DO Work Phone: 01-23-2022 12:00-0500 72 1 Shaikh Jabierwad Work Phone: [facility] [place] Work Phone: Comment on above: [id number] 11-09-2021 13:26-0400 Body height 160.02 cm Shaikh Leoneld Work Phone: [facility] 600 DO Work Phone: 11-09-2021 13:26-0400 Body mass index (BMI) [Ratio] 27.83 kg/m2 Shaikh Jabierwad Work Phone: [facility] DO Work Phone: 11-09-2021 13:26-0400 Body surface area Derived from formula 1.75 m2 Shaikh Jabierwad Work Phone: [facility] DO Work Phone: 11-09-2021 13:26-0400 Body weight 71.27 kg Shaikh Jabierwad Work Phone: [facility] DO Work Phone: 11-09-2021 13:26-0400 Diastolic blood pressure 82 mm[Hg] Shaikh Felywwad Work Phone: [facility] DO Work Phone: 11-09-2021 13:26-0400 Heart rate 64 /min Shaikh Jabierwad Work Phone: [facility] DO Work Phone: 11-09-2021 13:26-0400 Systolic blood pressure 128 mm[Hg] Shaikh Jabierwad Work Phone: [facility] DO Work Phone: 09-18-2021 10:26-0400 Diastolic blood pressure 80 mm[Hg] Shaikh Jabierwad Work Phone: [facility] DO Work Phone: 09-18-2021 10:26-0400 Systolic blood pressure 178 mm[Hg] Shaikh Jabierwad Work Phone: [facility] DO Work Phone: 09-18-2021 10:19-0400 Body height 162.56 cm Shaikh Jabierwad Work Phone: [facility] DO Work Phone: 09-18-2021 10:19-0400 Body mass index (BMI) [Ratio] 26.09 kg/m2 Shaikh Jabierwad Work Phone: [facility] DO Work Phone: 09-18-2021 10:19-0400 Body surface area Derived from formula 1.74 m2 Shaikh Jabierwad Work Phone: [facility] DO Work Phone: 09-18-2021 10:19-0400 Body weight 68.95 kg Shaikh Jabierwad Work Phone: [facility] DO Work Phone: 09-18-2021 10:19-0400 Diastolic blood pressure 80 mm[Hg] Shaikh Leoneld Work Phone: [facility] [employer] DO Work Phone: 09-18-2021 10:19-0400 Heart rate 60 /min Shaikh Leoneld Work Phone: [facility] DO Work Phone: 09-18-2021 10:19-0400 Systolic blood pressure 180 mm[Hg] Shaikh Leoneld Work Phone: [facility] [employer] DO Work Phone: 08-23-2021 14:00-0400 Body temperature 98.9 [degF] Linn Missler Other [facility] Other 08-23-2021 14:00-0400 Body weight 66.13 kg Linn Missler Other [employer] Other 08-23-2021 14:00-0400 Diastolic blood pressure 87 mm[Hg] Linn Missler Other [employer] Other 08-23-2021 14:00-0400 Respiratory rate 18 /min Linn Missler Other [employer] Other 08-23-2021 14:00-0400 SaO2% (BldA) [Mass fraction] 96 % Linn Missler Other [facility] Other 08-23-2021 14:00-0400 Systolic blood pressure 137 mm[Hg] Linn Missler Other [facility] Other 08-17-2021 12:00-0400 Diastolic blood pressure 94 mm[Hg] PHYSICIAN NO [facility] 08-17-2021 12:00-0400 Heart rate 78 /min PHYSICIAN NO [facility] 08-17-2021 12:00-0400 Respiratory rate 18 /min PHYSICIAN NO [facility] 08-17-2021 12:00-0400 SaO2% (BldA) [Mass fraction] 95 % PHYSICIAN NO [facility] 08-17-2021 12:00-0400 Systolic blood pressure 152 mm[Hg] PHYSICIAN NO [facility] 08-17-2021 08:00-0400 Body temperature 97.5 [degF] PHYSICIAN NO [facility] 08-17-2021 05:57-0400 Body weight 75.8 kg PHYSICIAN NO [facility] 08-17-2021 00:44-0400 Inhaled oxygen flow rate 2 L/min PHYSICIAN [facility] 08-16-2021 14:43-0400 Body height 162.56 cm PHYSICIAN NO [facility] 08-16-2021 14:43-0400 Body mass index (BMI) [Ratio] 25.6 kg/m2 PHYSICIAN NO [facility] Encounters Encounter Date Encounter Type [...] encounter procedure TRUDY ADRIAN [facility] Start: 05-17-2023 End: 05-17-2023 ambulatory ROSIE Yevgeniy BLANCHARD Not Available Start: 05-13-2023 End: 05-13-2023 ambulatory SHAIKH DONNA Not Available Start: 03-12-2023 End: 03-12-2023 [facility] Start: 03-12-2023 End: 03-12-2023 ambulatory MD Shaikh Thompson Work Phone: [facility] Work Phone: Start: 03-12-2023 End: 03-12-2023 Patient encounter procedure MD Shaikh Thompson Work Phone: [facility] [place] Work Phone: Start: 03-12-2023 End: 03-12-2023 ambulatory [facility] Start: 02-19-2023 End: 02-19-2023 ambulatory SHAIKH DONNA Not Available Start: 02-12-2023 End: 02-14-2023 Evaluation and management of inpatient Jacques Grider Antionegurmeet Facility:[facility] Start: 02-12-2023 End: 02-14-2023 Evaluation and management of inpatient MD Shaikh Thompson Work Phone: [facility] Work Phone: Start: 02-10-2023 End: 02-10-2023 Lab Drop off Jaxson Johnson [facility] Start: 02-10-2023 End: 02-10-2023 Emergency department patient visit Lizethvinicio Nunez Alvino [facility] Start: 02-10-2023 End: 02-10-2023 ambulatory Jaxson Johnson Facility[facility] Start: 02-10-2023 End: 02-10-2023 Patient encounter procedure Jaxson Johnson [facility] Start: 01-30-2023 End: 01-30-2023 ambulatory TRUDY ADRIAN Facility:[facility] Start: 01-30-2023 End: 01-30-2023 Patient encounter procedure TRUDY ADRIAN [facility] Start: 10-29-2022 Orders Only Debra [...] End: 10-15-2022 Lab Drop off Damion Cheek [facility] Start: 10-15-2022 End: 10-15-2022 ambulatory Damion Cheek Facility:[facility] Start: 10-15-2022 End: 10-15-2022 Patient encounter procedure Damion Cheek [facility] Start: 10-15-2022 Rx Renewal Shaikh Donna Work Phone: [facility] DO Work Phone: Start: 10-09-2022 End: 10-10-2022 ambulatory Rosie Harris DO Work Phone: [facility] [place] Start: 10-09-2022 End: 10-09-2022 Patient encounter procedure Gurmeet Ojeda MD Work Phone: [facility] Comment on above: Stage 3 chronic kidn ey disease, unspecified whether stage 3a or 3b CKD (HCC) (Primary Dx); Tobacco abuse; Hypertension, renal disease; Mixed hyperlipidemia; Atrophic kidney, acquired Start: 08-23-2022 End: 08-24-2022 ambulatory DEBRA FISHMAN [facility] Start: 08-09-2022 End: 08-09-2022 Patient encounter procedure Gurmeet Ojeda MD Work Phone: [facility] Comment on above: Stage 3b chronic kid domingo disease (HCC) (Primary Dx); Hypertension, unspecified type; Orthostatic hypotension; Alkalosis; Hypercholesteremia Start: 08-09-2022 End: 08-10-2022 ambulatory Debra Fishman MD Work Phone: [facility] Start: 06-19-2022 ambulatory SHAIKH Enrique THOMPSON Facilit y:[facility] Start: 06-14-2022 End: 06-14-2022 Patient encounter procedure Jamie BILLS [facility] Start: 06-12-2022 End: 06-13-2022 ambulatory SHAIKH Enrique THOMPSON Facility:[facility] Start: 06-06-2022 End: 06-06-2022 Patient encounter procedure TRUDY ADRIAN [facility] Start: 05-23-2022 End: 05-23-2022 Patient encounter procedure TRUDY ADRIAN [facility] Start: 04-30-2022 End: 05-01-2022 ambulatory SHAIKH Enrique THOMPSON Facility:[facility] Start: 04-11-2022 End: 04-11-2022 Patient encounter procedure TRUDY ADRIAN [facility] Start: 04-05-2022 End: 04-05-2022 ambulatory Kevyn Sharma Other [facility] Other Start: 04-05-2022 Telephone encounter Kevyn Carmichael ck [facility] Customer Complaint Clerk Start: 03-27-2022 End: 03-28-[address] MARQUEZ BEAL Facility:[facility] Start: 03-19-2022 End: 03-19-2022 ambulatory Padmini Sam Other [facility] Other Start: 03-19-2022 Office outpatient vi sit 15 minutes Padmini Sam [facility] Start: 03-13-2022 End: 03-13-2022 Admission to same day surgery center MD Shaikh Thompson Work Phone: [facility] Work Phone: Start: 03-13-2022 End: 03-13-2022 ambulatory MD Shaikh Thompson Work Phone: [facility] Work Phone: Start: 03-12-2022 Office outpatient vi sit 25 minutes Shaikh Donna Work Phone: [facility] DO Work Phone: Start: 02-26-2022 End: 02-26-[address] XAVIER STAFFORD . Facility:[facility] Start: 02-19-2022 End: 02-20-2022 ambulatory SHAIKH Enrique THOMPSON Facility:[facility] Start: 01-29-2022 Chart Update Shaikh Donna Work Phone: [facility] DO Work Phone: Start: 01-23-[address] Marquez Beal II Facility:[id number] Start: 01-23-2022 Patient encounter procedure Shaikh Donna Work Phone: [facility] DO Work Phone: Start: 11-16-2021 Rx Renewal Shaikh Donna Work Phone: [facility] DO Work Phone: Start: 11-09-2021 ambulatory Marquez Beal II Facility: Start: 10-30-2021 End: 10-31-2021 ambulatory SHAIKH Enrique THOMPSON Facility:[facility] Start: 10-24-2021 Chart Update Shaikh Donna Work Phone: [facility] DO Work Phone: Start: 10-17-[address] Marquez Beal II Facility:[id number] Start: 09-18-2021 ambulatory Marquez Beal II Facility: Start: 09-18-2021 Office outpatient vi sit 25 minutes Shaikh Donna Work Phone: [facility] DO Work Phone: Start: 09-18-2021 End: 09-18-2021 Patient encounter procedure PHYSICIAN NO [facility] [place] Start: 09-18-2021 ambulatory Marquez Beal II Faci lity:[id number] Start: 08-23-2021 ([facility] CHUCK) [facility] Transition of Care [facility] Start: 08-23-2021 End: 08-23-2021 ambulatory [facility] Other [facility] Other Start: 08-23-2021 End: 08-23-2021 Patient encounter procedure PHYSICIAN NO [facility] Start: 08-17-2021 End: 08-17-2021 Patient encounter procedure PHYSICIAN NO [facility]Electro[facility]ostics Start: 08-17-2021 ambulatory Marquez Beal II Facility:[id number] Start: 08-16-[address] Jaycob Newman Facility:[id number] Start: 08-15-2021 ambulatory Marquez Beal II Facility:[id number] Start: 08-14-2021 ambulatory Marquez Beal II Facility:[id number] Start: 08-13-2021 End: 08-17-2021 Evaluation and management of inpatient PHYSICIAN NO FAMILY [facility] Start: 08-13-2021 End: 08-13-2021 ambulatory Marquez Beal II Facility:[id number] Start: 12-08-2020 End: 12-11-2020 [facility] Start: 12-08-2020 End: 12-10-2020 Subsequent hospital visit by physician [facility] Comment on above: Encounter for screen [...] Expected: 10/10/2023, Expires: 12/10/[address] [facility] Work Phone: Comment on above: Expected: 10/10/2023 , Expires: 12/10/2023 Start: 08-24-2023 SERUM CREATININE SERUM CREATININE Cl [facility] Start: 03-12-2023 FUV, Provider: Marquez Beal, Status: Pen, Time: 11:00 AM FUV, Provider: Marquez Beal, Status: Pen, Time: 11:00 AM -[facility] 250 DO Work Phone: Start: 02-14-2023 [facility] Start: 02-12-2023 Microbial culture of sputum [facility] Start: 02-12-2023 Aerobic microbial culture Aerobic Cu lture [facility] Start: 02-12-2023 Hospital admission [facility] Start: 02-12-2023 [facility] Start: 10-19-2022 [facility] Start: 08-09-2022 End: 10-09-2022 25-hydroxyvitamin D3 [Mass/volume] in Serum or Plasma VITAMIN D 25 HYDROXY Lab Routine Stage 3b chronic kidney disease (HCC) Expected: 08/09/2022, Expires: 10/09/[address] [facility] Work Phone: Comment on above: Expected: 08/09/2022 , Expires: 10/09/2022 Start: 08-09-2022 End: 10-09-2022 MONOCLONAL PROTEIN, SERUM (BLOOD) MONOCLONAL PROTEIN, SERUM (BLOOD) Lab Routine Stage 3b chronic kidney disease (HCC) Expected: 08/09/2022, Expires: 10/09/[address] [facility] Work Phone: Comment on above: Expected: 08/09/2022 , Expires: 10/09/2022 Start: 08-09-2022 End: 10-09-2022 Renal function 2000 panel - Serum or Plasma RENAL FUNCTION PANEL Lab Routine Stage 3b chronic kidney disease (HCC) Expected: 08/09/2022, Expires: 10/09/[address] [facility] Work Phone: Comment on above: Expected: 08/09/2022 , Expires: 10/09/2022 Start: 03-13-2022 [facility] Start: 03-12-2022 FUV, Provider: Marquez Beal, Status: Pen, Time: 8:30 AM FUV, Provider: Marquez Beal, Status: Pen, Time: 8:30 AM [facility] 250 DO Work Phone: Start: 02-18-2022 DEPRESSION ASSESSMENT DEPRESSION ASS ESSMENT [facility] Start: 12-21-2021 FUV, Provider: Marquez Beal, Status: Pen, Time: 12:50 PM FUV, Provider: Marquez Beal, Status: Pen, Time: 12:50 PM -[facility] 600 DO Work Phone: Start: 12-08-2021 Mammography MAMMOGRAM [facility] Start: 11-22-2021 STRESS NUC, Provider : TRENA PAGEI NUCLEAR 01,[id number], Status: Pen, Time: 12:00 PM STRESS NUC, Provider: TRENA PAGEI NUCLEAR 01,[id number], Status: Pen, Time: 12:00 PM [facility] 600 DO Work Phone: Start: 11-22-2021 NURSEVST, Provider: KAYLEN ANAND CARPET MECHANIC 1,[id number], Status: Pen, Time: 10:30 AM NURSEVST, Provider: KAYLEN ANAND CARPET MECHANIC 1,[id number], Status: Pen, Time: 10:30 AM [facility] 600 DO Work Phone: Start: 11-09-2021 FUV, Provider: Marquez Beal, Status: Pen, Time: 1:10 PM FUV, Provider: Marquez Beal, Status: Pen, Time: 1:10 PM [facility] Work Phone: Start: 10-17-2021 STRESS IVAN, Provider : TRENA HHVI NUCLEAR 01,[id number], Status: Pen, Time: 2:00 PM STRESS IAVN, Provider: TRENA HHVI NUCLEAR 01,[id number], Status: Pen, Time: 2:00 PM [facility] 250 DO Work Phone: Start: 08-17-2021 [facility] Work Phone: Start: 08-14-2021 Referral to neurologist [facility] Work Phone: Start: 08-14-2021 Blood culture for bacteria, including anaerobic screen Blood Culture [facility] Start: 08-14-2021 [facility] Work Phone: Start: 08-13-2021 Ultrasonography of R ight and Left Heart, Transesophageal Ultrasonography of Right and Left Heart, Transesophageal [facility] Start: 08-13-2021 Hospital admission [facility] Work Phone: Start: 08-13-2021 Referral to tobacco weigher [facility] Work Phone: Start: 03-27-2021 Colonoscopy COLONOSCOPY [facility] Start: 03-27-2021 COLORECTAL CANCER SCREENING COLORECTAL CANCER SCREENING [facility] Start: 03-11-2021 COVID-19 VACCINE (4 - Booster for Pfizer series) COVID-19 VACCINE (4 - Booster for Pfizer series) [facility] Start: 03-11-2021 COVID-19 VACCINE (4 - Pfizer series) COVID-19 VACCINE (4 - Pfizer series) [facility] Start: 02-07-2021 HPV TESTING HPV TESTING [facility] Start: 02-07-2021 PAP TESTING PAP TESTING [facility] Start: 10-19-2020 Influenza vaccination Flu vaccine (# 1) [employer] Phone: Start: 03-14-2017 HEMOGLOBIN/HEMATOCRIT HEMOGLOBIN/HEM ATOCRIT [facility] Start: 2012 Screening for malign ant neoplasm of breast [facility] Start: 2012 Shingles Vaccine (1 of 2) Herring gles Vaccine (1 of 2) [facility] [email or web address] Phone: Start: 2012 SHINGRIX VACCINE (1 of 2) HERRING GRIX VACCINE (1 of 2) [facility] Start: 05-12-2007 COLOGUARD (FIT-DNA) COLOGUARD (FIT-D NA) [facility] Start: 05-12-[address] COLONOGRAPHY [facility] Start: 05-12-2007 DIABETES SCREEN DIABETES SCREEN [facility] Start: 05-12-2007 FECAL OCCULT BLOOD FECAL OCCULT BLOO D [facility] Start: 05-12-2007 LIPID SCREEN LIPID SCREEN [facility] Start: 05-12-2007 Screening for malign ant neoplasm of colon Colon cancer screen colonoscopy [facility] [employer] Phone: Start: 05-12-2007 SIGMOIDOSCOPY SIGMOIDOSCOPY [facility] Start: 2002 Lipid panel Lipid screen [facility] [employer] Phone: Start: 1992 Screening for malign ant neoplasm of cervix [employer] Phone: Start: 05-12-1983 Screening for malign ant neoplasm of cervix Pap smear [employer] Phone: Start: 1981 DTaP/Tdap/Td vaccine (1 - Tdap) DTaP/Tdap/Td vaccine (1 - Tdap) [facility] Work Phone: Start: 1981 Urine microalbumin profile DTAP,TDAP,TD (1 - Tdap) [facility] Start: 1980 ANNUAL PCP TEAM PREFITTER ZEFERINO DISEASE VISIT ANNUAL PCP TEAM CHRONIC DISEASE VISIT [facility] Start: 1980 HEPATITIS C SCREENING HEPATITIS C [facility] Start: 1980 HIV SCREENING HIV SCREENING [facility] Start: 1977 HIV screening HIV screen [facility] Work Phone: Start: 1962 Hepatitis C screening Hepatitis C [facility] Work Phone: Activated protein C resistance assay [facility] Work Phone: Antithrombin [Units/volume] in Platelet poor plasma by Chromogenic method [facility] Work Phone: aPTT.lupus sensitive (LA screen) [facility] Work Phone: aPTT.lupus sensitive W excess phospholipid actual/Normal (normalized LA confirm) [facility] Work Phone: aPTT.lupus sensitive/aPTT.lupus sensitive W excess phospholipid (screen to confirm ra [facility] Work Phone: Beta 2 glycoprotein 1 IgG Ab [Units/volume] in Serum [facility] Work Phone: Beta 2 glycoprotein 1 IgM Ab [Units/volume] in Serum [facility] Work Phone: Cardiolipin IgG Ab [Units/volume] in Serum by Immunoassay [facility] Work Phone: Cardiolipin IgM Ab [Units/volume] in Serum by Immunoassay [facility] Work Phone: dRVVT (LA screen) [facility] Work Phone: F2 gene mutations fo und [Identifier] in Blood or Tissue by Molecular genetics method Nominal [facility] Work Phone: Homocysteine [Moles/volume] in Serum or Plasma [facility] Work Phone: Lupus anticoagulant [Interpretation] in Platelet poor plasma [facility] Work Phone: End: 12-08-2020 BERTA KYARA DIGITAL SCREEN SELF REFERRAL W OR WO CAD BILATERAL BERTA KYARA DIGITAL SCREEN SELF REFERRAL W OR WO CAD BILATERAL Imaging Routine Encounter for screening mammogram for malignant neoplasm of breast 1 Occurrences starting 12/08/2020 until 12/08/2020 [facility] Work Phone: Comment on above: 1 Occurrences starti ng 12/08/2020 until 12/08/2020 BERTA KYARA DIGITAL SCR EEN SELF REFERRAL W OR WO CAD BILATERAL BERTA KYARA DIGITAL SCREEN SELF REFERRAL W OR WO CAD BILATERAL Imaging Routine Encounter for screening mammogram for malignant neoplasm of breast 12/08/2020 1:30 PM EDT [facility] Work Phone: Patient Education [facility] Work Phone: Patient referral [facility] Work Phone: Plasminogen assay [facility] Work Phone: Protein C actual/nor mal in Platelet poor plasma by Chromogenic method [facility] Work Phone: Protein S Free Ag [Units/volume] in Platelet poor plasma by Immunoassay [facility] Work Phone: Renin [Enzymatic activity/volume] in Plasma [facility] Work Phone: End: 09-08-2023 US KIDNEY/BLADDER US KIDNEY/BLADDER Radiology Routine Stage 3b chronic kidney disease (HCC) 1 Occurrences starting 08/09/2022 until 09/08/[address] [facility] Work Phone: Comment on above: 1 Occurrences starti ng 08/09/2022 until 09/08/2023 [facility] Immunizations Immunization Date Immunization Notes Care Provider Fely shirley 01-14-2021 Pfizer-BioNTech COVI D-19 Vacc 30 MCG/0.3ML Intramuscular Suspension Shaikh Donna Work Phone: [facility] Joe Comment on above: Result Comment: 2022: [id number] 06-25-2020 Pfizer-BioNTech COVI D-19 Vacc 30 MCG/0.3ML Intramuscular Suspension Shaikh Leonelyevgeniy Work Phone: [facility] Comment on above: Reason for Medicatio n: Prophylaxis 06-04-2020 Pfizer-BioNTech COVI D-19 Vacc 30 MCG/0.3ML Intramuscular Suspension Shaikh Felysarah Work Phone: [facility] Comment on above: Reason for Medicatio n: Prophylaxis Payers Date Payer Category Payer Self-pay [id number] 2022 Medicaid [id number] 1960 Unknown [id number] 2.16.8 40.1.683889.3.579.2.1068 1962 Unknown [id number] 2.16.8 40.1.312599.3.579.2.1068 1962 Unknown [id number] 2.16. 840.1.663107.3.579.2.356 1962 Unknown [id number] 2.16 840.1.792039.3.579.2.356 1962 Unknown [id number] 2.16. 840.1.496160.3.579.2.356 1962 Unknown [id number] 2.16. 840.1.491771.3.579.2.356 1962 Unknown [id number] 2.16. 840.1.150853.3.579.2.356 1962 Unknown [id number] 2.16. 840.1.668772.3.579.2.356 1962 Unknown [id number] 2.16. 840.1.285895.3.579.2.356 1962 Unknown [id number] 2.16. 840.1.424289.3.579.2.356 1962 Unknown [id number] 2.16. 840.1.472968.3.579.2.356 1962 Unknown [id number] 2.16. 840.1.681342.3.579.2.356 1962 Unknown [id number] 2.16. 840.1.927330.3.579.2.356 1962 Unknown [id number] 2.16.84 0.1.082682.3.579.2.593 1962 Unknown [id number] 2.16.84 0.1.451496.3.579.2.593 1962 Unknown [id number] 2.16.84 0.1.665544.3.579.2.593 1962 Unknown [id number] 2.16.84 0.1.960325.3.579.2.593 1962 Unknown [id number] 2.16.84 0.1.206463.3.579.2.593 1962 Unknown [id number] 2.16.84 0.1.534761.3.579.2.593 1962 Unknown [id number] 2.16.84 0.1.393897.3.579.2.593 1962 Unknown [id number] 2.16.84 0.1.122881.3.579.2.593 1962 Unknown [id number] 2.16.84 0.1.797092.3.579.2.1259 1962 Unknown [id number] 2.16.84 0.1.287909.3.579.2.1259 1962 Unknown [id number] 2.16.84 0.1.655451.3.579.2.1259 1962 Unknown [id number] 2.16.84 0.1.074147.3.579.2.1259 1962 Unknown [id number] 2.16.84 0.1.642847.3.579.2.1259 1962 Unknown [id number] 2.16.84 0.1.916374.3.579.2.1259 1962 Unknown [id number] 2.16.840 .1.930338.3.579.2.1259 1962 Unknown [id number] 2.16.8 40.1.351435.3.579.2.727 1962 Unknown [id number] 2.16.8 40.1.689497.3.579.2.727 1962 Unknown [id number] 2.16.8 40.1.802349.3.579.2.727 1962 Unknown [id number] 2.16.8 40.1.479254.3.579.2.727 1962 Unknown [id number] 2.16.8 40.1.345415.3.579.2.727 1962 Unknown [id number] 2.16.8 40.1.955975.3.579.2.727 1962 Unknown [id number] 2.16.8 40.1.152890.3.579.2.727 1962 Unknown [id number] 2.16.8 40.1.960068.3.579.2.727 1962 Unknown [id number] 2.16.8 40.1.346856.3.579.2.1244 1959 Medicaid [id number] 30 [id number] [address] [facility] [id number] Unknown Unknown [id number] 2.16.8 40.1.969458.3.579.2.531 Unknown [id number] 2.16.8 40.1.895537.3.579.2.531 Social History Date Type Detail Facility Start: 12-08-2020 Tobacco smoking stat us [facility] Unknown if ever smoked [facility] Work Phone: Start: 1960 Sex Assigned At Not on file M [employer] Work Phone: Start: 08-16-2021 End: 08-09-2022 Tobacco smoking status NHIS Ex-smoker (finding) [facility] Start: 08-09-2022 End: 10-09-2022 History of tobacco use [facility] Start: 1960 Sex Assigned At Female F [facility] Start: 08-09-2022 End: 10-09-2022 Daily caffeine consumption Daily caffeine consumption [facility] DO Work Phone: Comment on above: 1 CUP OF COFFEE; 2 CIGS DAILY; quit 2021; Start: 04-11-2022 End: 10-15-2022 Tobacco smoking status Heavy tobacco smoker (finding) [facility] Tobacco smoking status Never [facility] Start: 02-12-2023 End: 08-18-2017 History of tobacco use Current smoker [facility] End: 08-18-2017 History of tobacco use Cigarette Smoker [facility] Start: 08-09-2022 Tobacco use and exposure Smokeless tobacco non-user [facility] Start: 08-09-2022 Alcohol intake Current drinke r of alcohol (finding) [facility] Start: 10-09-2022 Alcohol intake Ex-drinker (finding) [facility] Start: 02-10-2023 Tobacco smoking status Light t obacco smoker (finding) [facility] Goals Date Patient Goal Desired Activity /State Functional Status Date Assessment Result Facility 02-14-2023 Functional status Patient at [facility] Work Phone: 02-10-2023 Functional Status N/A [facility] 10-15-2022 Functional Status N/A [facility] 06-14-2022 Functional Status N/A [facility] 06-06-2022 Functional Status N/A [facility] 05-23-2022 Functional Status N/A [facility] 04-11-2022 Functional Status N/A [facility] 08-17-2021 Functional status Patient at Baseline [facility] Work Phone: Mental Status Date Assessment Result Facility 02-14-2023 Cognitive function Cognitive Sta tus Patient at Baseline [facility] Work Phone: 08-17-2021 Cognitive function Cognitive Sta tus Patient at Baseline [facility] Work Phone: Clinical Notes 01-18-2010 to 02-14-2023 Note Date & Type Note Facility 02-14-2023 Discharge summary Note Date/Time February 14, 2023 12:53pm [facility] [address] [place] [address] Discharge Summary Signed Patient: Deysi Hernandez MR#: [id number] : 1960 Acct:[id number] Age/Sex: 62 / F Adm Date: 3 Loc: Room: [address] [place] [address]: Jacques East MD Copies to: [...] female with PMHx of CKD presented to [facility] with shortness of breath and was transferred to [facility] due to elevated troponins. Patient states she [...] % (Auto) 87.6, Lymph % (Auto) 7.6, [place] % (Auto) 4.7, Eos % (Auto) 0.0, Baso % (Auto) 0.1, Nucleat RBC Rel Count 0.0, Neut # (Auto) 11.1 H, Lymph #(Auto) 1.0, [place] # (Auto) 0.6, Eos # (Auto) 0.0, [...] <Electronically signed by Jacques East MD> 02/14/23 5119 [facility] Work Phone: 1(771) 300-648812-28-2023 Progress note Author Jacques East [facility] February 14, 2023 12:45pm Note Date/Time February 14, 2023 7:29am [facility] [address] [place] [address] Hospitalist Progress Note Signed Patient: Deysi Hernandez MR#: [id number] : 1960 Acct:[id number] Age/Sex: 62 / F Adm Date: 3 Loc: Room: [address] [place] [address] Type: ADM IN Attending Dr: Jacques East [...] signed by Jacques East MD> 02/14/23 1245 [facility] Work Phone: 1(980) 271-792912-27-2023 Progress note Author Jacques East [facility] February 13, 2023 10:47am Note Date/Time February 13, 2023 10:40am [facility] [address] [place] [address] Hospitalist Progress Note Signed Patient: Deysi Hernandez MR#: [id number] : 1960 Acct:[id number] Age/Sex: 62 / F Adm Date: 3 Loc: 3T Room: [address] [place] [address] Type: ADM IN Attending Dr: Jacques Esat MD Copies to: ~ Date of Service: [...] creatinine clearance -Trending downward from 80s at [place] to 70s here. repeat trop 43, flat [...] signed by Jacques East MD> 02/13/23 1040 [facility] Work Phone: 1(881) 460-772112-26-2023 History and physical note Author Jacques East [facility] February 12, 2023 11:26am Note Date/Time February 12, 2023 9:53am [facility] [address] [place] [address] Hospitalist H&P Signed Patient: Deysi Hernandez MR#: [id number] : 1960 Acct:[id number] Age/Sex: 62 / F Adm Date: 3 Loc: Room: [address] [place] [address] Type: ADM INOo Attending Dr: Jacques East MD Copies to: Geneva Rivas DO, RES MD Shaikh Donna Piña MD~ HPI DATE OF EXAMINATION: 02/12/23 CHIEF COMPLAINT: Shortness of breath HISTORY OF PRESENT ILLNESS: Patient is a 62 year old female with PMHx of CKD presented to [facility] with shortness of breath and was transferred to [facility] due to elevated troponins. Patient states she [...] troponin 70.6 (down from 87 yesterday at [place]). Review of Systems Review of Systems All other systems reviewed & are negative unless noted below or in HPI Review of systems: 10 systems are reviewed and are negative except as mentioned elsewhere in the documentation [facility] Medical History CKD (chronic kidney disease) stage 3, GFR 30-59 ml/min Embolic cerebrovascular disease High cholesterol Problem List clean-up per request of Phys. EHR Cmte Hypertension Problem List clean-up per request of Phys. [facility] Family History Father Myocardial infarction Heart disease [...] % (Auto) 4.0 % (.) 02/12/23 06:41 [place] % (Auto) 1.8 % (.) 02/12/23 06:41 Eos % (Auto) 0.0 % (.) 02/12/23 06:41 Baso % (Auto) 0.2 % (.) 02/12/23 06:41 Nucleat RBC Rel Count 0.1 /100 WBC (0-0.5) 02/12/23 06:41 Neut # (Auto) 14.1 x10E3/uL (1.8-7.7) H 02/12/23 06:41 Lymph # (Auto) 0.6 x10E3/uL (1.00-4.8) L 02/12/23 06:41 [place] # (Auto) 0.3 x10E3/uL (0.0-0.8) 02/12/23 06:41 [...] creatinine clearance -Trending downward from 80s at [place] to 70s here. Will trend it again. [...] signed by Jacques East MD> 02/12/23 1126 [facility] Work Phone: [phone]) 222-363212-24-2023 Hospital Discharge instructions Patient Education 02/10/2023 17:12:09 Urinary Tract Infection, Adult, Pahd-qy-Hwrc Urinary Tract Infection, Adult A urinary tract [...] Follow these instructions at home: Medicines Take nqfc-twn-ddkmokw and prescription medicines only as told by [...] provider. Document Revised: 09/16/2020 Document Reviewed: 09/16/2020 [employer] Patient Education 2022 [employer]. 02/10/2023 17:12:09 Acute Bronchitis, Adult Acute Bronchitis, [...] condition. 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 Avoid contact with people who have cold [...] it is easier to cough up. Take yral-qij-ztsyxuk and prescription medicines only as told by [...] provider. Document Revised: 05/17/2022 Document Reviewed: 06/07/2021 [employer] Patient Education 2022 [employer] Follow Up Care 02/10/2023 14:38:40 With:SHAIKH DONNA Address: [address] [place] [phone] Business (1) When:02/13/2023 16:16:37 Comments:Follow-up with your primary care provider in 3 to 5 days. If symptoms worsen, do not improve, or new symptoms arise please report back to emergency department for further evaluation. [facility]12-24-2023 Evaluation + Plan note Diagnostic Tests Pending * Urine Culture 02/10/23 [facility]12-24-2023 Evaluation + Plan noteExtracted from: Title:ED [...] day(s), # 14 cap(s), Refills(s) 0, [id number], 163, cm, 02/10/23 14:52:00 EST, Height/Length Dosing, 70, kg, 02/10/23 14:52:00 EST, Weight Dosing predniSONE, 60 mg = 3 tab(s), Oral, Daily, X 5 day(s), # 15 tab(s), Refills(s) 0, [id number], 163, cm, 02/10/23 14:52:00 EST, [...] PT & PTT Rapid COVID Antigen ([facility]) Saline Lock Insert Troponin 0 Hr. Troponin 3 Hr. XR Chest Single View [facility]09-12-2023 Evaluation note* Diagnosis Stage 3 chronic kidney disease, unspecified whether stage 3a or 3b CKD (HCC) documented in this encounter [facility]09-11-2023 NoteHNO ID: [id number] Author: Debra Fishman MD Service: ? Author Type: Physician Type: Progress Notes Filed: 10/29/2022 9:00 PM Note Text: Patient contacted me regarding high blood pressure in 150-160 mmHg at home. We agreed to increase lisinopril back to 10 mg daily, updated prescription sent to pharmacy on file. Debra Fishman MD Staff, Department of Kidney Medicine 10/29/22 9:00 [facility]09-11-2023 History of Present illness Narrative * Debra Fishman MD - 10/29/2022 8:59 PM EDT Patient contacted me regarding high blood pressure in 150-160 mmHg at home. We agreed to increase lisinopril back to 10 mg daily, updated prescription sent to pharmacy on file. Debra Fihsman MD Staff, Department of Kidney Medicine 10/29/22 9:00 PM documented in this encounterProm[facility] Miscellaneous Notes* Telephone Encounter - Debra [...] question. I will also send her a JoMaJa message encouraging communicate via JoMaJa if needed. Debra Fishman MD Staff, Department of Kidney Medicine 10/26/22 5:49 PM documented in this encounterProm[facility]ica [facility]09-07-2023 Miscellaneous Notes* Telephone Encounter - Linn Solis Ma - 10/25/2022 12:32 PM EDT Patient called the office very upset because today at here appointment with Kidney Medicine she wasseen by another provider and it wasn't her kidney doctor. She would like Dr. Fishman call her back at [phone] because she has lots of questions that the patient wants answers to and the patient is requesting that the provider calls her back after 5:30 pm due to the patient works that late Saturday thru Saturday documented in this encounterPromedica [facility]08-28-[facility]23 Hospital Discharge instructions Patient Education 10/15/2022 [...] Department of Health and Human Services: www.smokefree.gov [place] [employer]: www.freedomfromsmoking.org [place] [employer]: www.heart.org Where to find more [...] provider. Document Revised: 02/06/2022 Document Reviewed: 02/06/2022 [employer] Patient Education 2022 [employer]. 10/15/2022 18:04:53 Steps to Quit Smoking Steps [...] require a prescription. You can also purchase vjhk-lmv-kcfghmx medicines. Medicines may have nicotine in them [...] and encouragement. Call telephone quitlines, such as 9-150-VGFX-NOW, reach out to support groups, or work [...] provider. Document Revised: 01/26/2022 Document Reviewed: 01/26/2022 [employer] Patient Education 2022 [employer]. 10/15/2022 18:04:51 BMI for Adults BMI for [...] numbers. This can be done either in [place] or metric measurements. Note that charts and online BMI calculators are available to help you find your BMI quickly and easily without having to do these calculations yourself. To calculate your BMI in [place] measurements: 1.Measure your weight in pounds [...] Centers for Disease Control and Prevention: www.cdc.gov [place] [employer]: www.heart.org National Heart, Lung, and Blood [place]: www.nhlbi.nih.gov Summary Body mass index (BMI) is a number that is calculated from a person's weight and height. BMI may help estimate how much of a person's weight is composed of fat. BMI can help identify thosewho may be at higher risk for certain medical problems. BMI can be measured using [place] measurements or metric measurements. BMI charts are used to identify whether you are underweight, normal weight, overweight, or obese. This information is not intended to replace advice given to you by your health care provider. Make sure you discuss any questions you have with your health care provider. Document Revised: 10/28/2019 Document Reviewed: 09/04/2019 [employer] Patient Education 2022 [employer]. 10/15/2022 18:04:48 Urinary Tract Infection, Adult Urinary [...] Treatment for this condition includes: Antibiotic medicine. Ubjo-gwx-ynjankr medicines to treat discomfort. Drinking enough water [...] Follow these instructions at home: Medicines Take rxvl-fxc-cecaard and prescription medicines only as told by [...] provider. Document Revised: 09/16/2020 Document Reviewed: 09/16/2020 [employer] Patient Education 2022 [employer]. 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 Author Type: Physician Type: Progress Notes Filed: 10/09/2022 5:08 PM Note Text: [facility] SERVICE DATE: [...] CKD, ESRD, hearing loss. She is a half-way smoker, currently 0.75 pack per day but [...] note: I have interview (more content not included)...[facility] 10-09-2022 Instructions* Patient Instructions* Gurmeet Ojeda MD [...] to smoking cessation program documented in this encounterProm[facility]08-22-2023 History of Present illness Narrative* Rosie Harris DO - 10/09/2022 2:32 PM EDT [facility] SERVICE DATE: [...] CKD, ESRD, hearing loss. She is a half-way smoker, currently 0.75 pack per day butsmoked [...] Rosie Harris DO documented in this encounterCleveland [id number] NotePatient Outreach (ELPIDIO) DEYSI HERNANDEZ ([id number]) 1960 F Date Time Provider Department 10/09/22 ROSIE HARRIS During your visit today, we recorded the following information about you: Allergies As of Date: 10/09/2022 Noted Allergy Reaction CODEINE 09/07/2014 7 - Swelling Date Reviewed: 10/09/2022 Reviewed by: Rosie Harris DO - Fully Assessed Visit Diagnosis:Screening for genitourinary condition [Z13.89] Order(s):URINALYSIS, REFLEX MICROSCOPIC [NCX6628] Order #: [id number]. #:[id number] Prescriptions as of 10/12/2022 - lisinopril (ZESTRIL) [...] Mixed hyperlipidemia [E78.2] 10/09/2022 Encounter Status:Closed by [employer]YESENIA on 10/12/22[facility] 08-23-2022 NoteHNO ID: [id number] Author: Carine Farris RDMS Service: ? Author [...] Carine Farris RDMS August 23, 2022 2:23 [id number] NoteHNO ID: [id number] Author: Debra Fishman MD Service: ? Author Type: Physician Type: Progress Notes Filed: 08/09/2022 7:02 PM Note Text: [facility] [facility] SERVICE DATE: [...] LEUKEST 75 Bonnie/uL* ASSE (more content not included)...[facility]06-22-2023 Instructions* Patient Instructions* Gurmeet Ojeda MD - [...] at your earliest convenience documented in this encounter[facility] History of Present illness Narrative* Debra Fishman MD - 08/09/2022 3:17 PM EDT [facility] SERVICE DATE: [...] Staff, Department of Kidney Medicine Pager # [phone] August 09, 2022 6:58 PM documented in this encounterProm[facility]06-22-2023 NotePatient Outreach (KIDMMN) DEYSI HERNANDEZ ([id number]) 1960 F Date Time Provider Department 08/09/22 DEBRA FISHMAN During your visit today, we recorded the following information about you: Allergies As of Date: 08/09/2022 Noted Allergy Reaction CODEINE 09/07/2014 7 - Swelling Date Reviewed: 08/09/2022 Reviewed by: Paulo Holbrook MA - Fully Assessed Visit Diagnosis:Screening for genitourinary condition [Z13.89] Order(s):URINALYSIS, REFLEX MICROSCOPIC [WFK5821] Order #: [id number]. #:[id number] Prescriptions as of 08/13/2022 - aspirin, enteric [...] for malignant neoplasm *03/27/2016 Encounter Status:Closed by ViViFiDIANDRA on 08/13/22[facility] 06-[facility] Hospital Discharge instructions Patient Education 06/06/2022 [...] your health care provider. General instructions Take qxub-wsm-wxpmwsd and prescription medicines only as told by [...] Document Reviewed: 10/24/2020 Elsevier Patient Education 2022 [employer]. [facility] 04-05-2023 Hospital Discharge instructions Patient [...] Document Reviewed: 09/24/2018 Elsevier Patient Education 2020 [employer]. [facility] 02-22-2023 Hospital Discharge instructions Patient [...] 01/21/2013 Document Revised: 09/24/2018 Document Reviewed: 09/24/2018 [employer] Patient Education 2020 [employer]. Follow Up Care 02/28/2022 14:28:28 With:NGUYỄN BRIDGES, TRUDY Goldsmith, URL Address: [address] [place] [address] When: Unknown [facility] Joe 01-30-2023 Evaluation note* Encounter Date Diagnosis [...] concerns Feb, Sore throat (ICD-10 - J02.9) [facility] Other 01-24-2023 Procedure [facility]07-06-2022 Evaluation note* Encounter Date Diagnosis Assessment Notes [...] risk of hypotension. Patient also educated on [employer] as patient does not have prescription insurance. Advised patient on proper assessment of blood pressure at home. Time spent with patient: 10 minutes Seen by: Akil Collins, PharmD, BCACP [place] [facility] Other 06-29-2022 Progress note Author Ricky Reynoso [facility] August 16, 2021 6:37pm Note Date/Time August 16, 2021 6:37 pm [facility] [address] [place] [address] Hospitalist Progress Note Signed Patient: Deysi Hernandez MR#: [id number] : 1960 Acct:[id number] Age/Sex: 61 / F Adm Date: 2 Loc: Room: [address] [place] [address] Type : ADM IN Attending Dr: Ricky [...] Benzocaine 1 applic 08/16/21 15:00 Benzocaine 20% Check 57 Gm Can MUCOUS MEM ONCE PRN [...] culture have been pending, urine culture at [place] showed mixed zoe, since patient presented with [...] <Electronically signed by Ricky Reynoso DO> 08/16/211836 [facility] Work Phone: 1(891) 279-197006-29-2022 Progress note Author Rober Wyatt [facility] August 16, 2021 5:13pm Note Date/Time August 16, 2021 8:17 am [facility] [address] [place] [address] Neurology Progress Note Signed Patient: Deysi Hernandez MR#: [id number] : 1960 Acct:[id number] Age/Sex: 61 / F Adm Date: 2 Loc: Room: [address] [place] [address] Type : ADM IN Attending Dr: Ricky [...] 4 extremities and symmetric CEREBELLAR EXAM: * Qizmti-db-mphg and alternating movements are intact and normal in bilateral upper extremities * Ansy-yh-tlrc and alternating movements are intact and normal [...] Patient presented to the emergency room at [facility] with abdominal pain and was noted to have acute kidney injury and evidence of pyelonephritis and elevated troponin with EKG changes. She was transferred to [facility] for further evaluation. She is on antibiotics. [...] <Electronically signed by Rober Wyatt DO> 08/16/21 1822 [facility] Work Phone: 1(951) 696-299006-29-2022 Progress note Author Marquez Beal [facility] August 16, 2021 10:47am Note Date/Time August 16, 2021 10:4 4am [facility] [address] [place], [place] [id number] Cardiology Progress Note Signed Patient: Deysi Hernandez MR#: [id number] : 1960 Acct:[id number] Age/Sex: 61 / F Adm Date: 2 Loc: Room: [address] [place] [address] Type : ADM IN Attending Dr: Ricky [...] % (Auto) 70.9 Lymph % (Auto) 18.6 [place] % (Auto) 9.4 Eos % (Auto) 0.4 Baso % (Auto) 0.7 Neut # (Auto) 7.7 Lymph # (Auto) 2.0 [place] # (Auto) 1.0 H Eos # (Auto) [...] mg daily. Documented By: Marquez Beal MD 1048 Signed By: <Electronically signed by MD Marquez Beal> 08/16/21 1040 [facility] Work Phone: 1(198) 665-570106-28-2022 Consult note Author Rober Wyatt [facility] August 15, 2021 5:40pm Note Date/Time August 15, 2021 8:42 am [facility] [address] [place] [address] Neurology Consult Note Signed Patient: Deysi Hernandez MR#: [id number] : 1960 Acct:[id number] Age/Sex: 61 / F Adm Date: 2 Loc: Room: [address] [place] [address] Type : ADM IN Attending Dr: Alaina Arce MD Copies to: DO Janet Richter ANP-C Kanika Ahuja, MD NO FAMILY PHYSICIAN~ HPI Consult Date: 08/15/21 Sports Administrator: MAURICIO Rose with Dr Wyatt Reason for consult: Stroke Consult Narrative HPI: Patient is a 61-year-old female with unknown medical history. She was admitted to the hospital on 08/13/2021 after presenting to the emergency room with abdominal pain that been present for approximately 1 week associated with nauseaand vomiting. Patient presented to the emergency room in [place] and found to have significant hypertension and [...] nonacute. She was transferred to [facility] for further evaluation and management. On arrival [...] 4 extremities and symmetric CEREBELLAR EXAM: * Xqrids-kj-dswv and alternating movements are intact and normal in bilateral u pper extremities * Nhku-zu-xobq and alternating movements are intact and normal [...] Christopher Ceja M.D.08/14/2021 4:57 PM Dictation Location: [place] [address] Therapy Recommendations Therapy Recommendations: OT Recommendations OT [...] Patient presented to the emergency room at [facility] with abdominal pain and was noted to have acute kidney injury and evidence of pyelonephritis and elevated troponin with EKG changes. She was transferred to [facility] for further evaluation. She is on antibiotics. [...] profile laboratory studies Documented By: LESLEY Bustillo 0831 Signed By: <Electronically signed by LESLEY Hamm> 08/15/21 1025 <Electronically signed by Rober Wyatt DO> 08/15/21 1740 [facility] Work Phone: 1(578) 618-738506-28-2022 Progress note Author Marquez Beal [facility] August 15, 2021 4:25pm Note Date/Time August 15, 2021 4:25 pm [facility] [address] [place] [address] Cardiology Progress Note Signed Patient: Deysi Hernandez MR#: [id number] : 1960 Acct:[id number] Age/Sex: 61 / F Adm Date: 2 Loc: Room: [address] [place] [address] Type : ADM IN Attending Dr: Alaina [...] MPV Neut % (Auto) Lymph % (Auto) [place] % (Auto) Eos % (Auto) Baso % (Auto) Neut # (Auto) Lymph # (Auto) [place] # (Auto) Eos # (Auto) Baso # [...] % (Auto) 82.8 Lymph % (Auto) 8.6 [place] % (Auto) 7.9 Eos % (Auto) 0.1 Baso % (Auto) 0.6 Neut # (Auto) 11.6 H Lymph # (Auto) 1.2 [place] # (Auto) 1.1 H Eos # (Auto) [...] signed by MD Marquez Beal> 08/15/21 1628 [facility] Work Phone: 1(925) 273-785906-28-2022 Progress note Author Alaina Arce [facility] August 15, 2021 10:27am Note Date/Time August 15, 2021 10:2 7am [facility] [address] [place] [address] Hospitalist Progress Note Signed Patient: Deysi Hernandez MR#: [id number] : 1960 Acct:[id number] Age/Sex: 61 / F Adm Date: 2 Loc: 3T Room: 6A8489-2 Type : ADM IN Attending Dr: Alaina Arce MD Copies to: ~ Date of Service: 08/15/2021 Subjective Subjective Narrative: Patient is 61-year-old female with no previous known medical history GERD transferred from [place] for further management of abdominal pain. Patient [...] a week ago, patient initially went to [place] ER, was found to have blood pressure [...] showed changes similar to 1 done in [place], Labs at [facility], potassium 3.1, creatinine 1.92, bloodglucose 132, EKG [...] 1,000 Ml IV 08/13/22 10:59 75 mls/hr .[id number] ESTEBAN Administration Metoprolol Succinate 50 mg 08/15/21 [...] culture have been pending, urine culture at [place] showed mixed zoe, since patient presented with [...] signed by Alaina Arce MD> 08/15/21 1027 [facility] Work Phone: 1(429) 939-123306-27-2022 Progress note Author Bong Bansal [facility] August 14, 2021 6:15pm Note Date/Time August 14, 2021 4:52 pm [facility] [address] [place] [address] Event Note Signed Patient: Deysi Hernandez MR#: [id number] : 1960 Acct:[id number] Age/Sex: 61 / F Adm Date: 2 Loc: Room: [address] [place] [address] Type : ADM IN Attending Dr: Alaina [...] <Electronically signed by Bong Bansal MD> 08/14/21 2588 [facility] Work Phone: 1(884) 835-712106-27-2022 Progress note Author Marquez Beal [facility] August 14, 2021 3:21pm Note Date/Time August 14, 2021 3:21 pm [facility] [address] [place] [address] Cardiology Progress Note Signed Patient: Deysi Hernandez MR#: [id number] : 1960 Acct:[id number] Age/Sex: 61 / F Adm Date: 2 Loc: Room: [address] [place] [address] Type : ADM IN Attending Dr: Alaina [...] % (Auto) 64.9 Lymph % (Auto) 26.5 [place] % (Auto) 7.3 Eos % (Auto) 0.6 Baso % (Auto) 0.7 Neut # (Auto) 6.8 Lymph # (Auto) 2.8 [place] # (Auto) 0.8 Eos # (Auto) 0.1 [...] MPV Neut % (Auto) Lymph % (Auto) [place] % (Auto) Eos % (Auto) Baso % (Auto) Neut # (Auto) Lymph # (Auto) [place] # (Auto) Eos # (Auto) Baso # [...] <Electronically signed by MD Marquez Beal> 08/14/21 1523 [facility] Work Phone: 1(552) 548-277506-27-2022 Progress note Author Alaina Arce [facility] August 14, 2021 10:48am Note Date/Time August 14, 2021 10:4 4am [facility] [address] [place] [address] Hospitalist Progress Note Signed Patient: Deysi Hernandez MR#: [id number] : 1960 Acct:[id number] Age/Sex: 61 / F Adm Date: 2 Loc: Room: [address] [place] [address] Type : ADM IN Attending Dr: Alaina Arce MD Copies to: ~ Date of Service: 08/14/2021 Subjective Subjective Narrative: Patient is 61-year-old female with no previous known medical history GERD transferred from [place] for further management of abdominal pain. Patient [...] a week ago, patient initially went to [place] ER, was found to have blood pressure [...] showed changes similar to 1 done in [place], Labs at [facility], potassium 3.1, creatinine 1.92, bloodglucose 132, EKG [...] 1,000 Ml IV 08/13/22 10:59 75 mls/hr .[id number] ESTEBAN Administration Metoprolol Tartrate 25 mg 08/13/21 [...] culture negative, will get culture report from [place] Patient has significantly improved, continue Rocephin, will [...] signed by Alaina Arce MD> 08/14/21 1048 [facility] Work Phone: 1([phone]) 129-364606-26-2022 Consult note Author Marquez Beal [facility] August 13, 2021 1:32pm Note Date/Time August 13, 2021 1:32 pm [facility] [address] [place] [address] Cardiology Consult Note Signed Patient: Deysi Hernandez MR#: [id number] : 1960 Acct:[id number] Age/Sex: 61 / F Adm Date: 2 Loc: Room: [address] [place] [address] Type : ADM IN Attending Dr: Alaina [...] x10E3/uL Lymph # (Auto) 1.0 (1.00-4.8) x10E3/uL [place] # (Auto) 0.5 (0.0-0.8) x10E3/uL Eos # [...] <Electronically signed by MD Marquez Beal> 08/13/21 4109 [facility] Work Phone: 1([phone]) 324-342006-26-2022 History and physical note Author Alaina Arce [facility] August 13, 2021 12:13pm Note Date/Time August 13, 2021 11:5 5am [facility] [address] [place] [address] Hospitalist H&P Signed Patient: Deysi Hernandez MR#: [id number] : 1960 Acct:[id number] Age/Sex: 61 / F Adm Date: 2 Loc: Room: [address] [place] [address] Type : ADM IN Attending Dr: Alaina Arce MD Copies to: Alaina Arce MD NO FAMILY PHYSICIAN~ HPI DATE OF EXAMINATION: 08/13/21 CHIEF COMPLAINT: Abdominal pain HISTORY OF PRESENT ILLNESS: Patient is 61-year-old female with no previous known medical history GERD transferred from [place] for further management of abdominal pain. Patient [...] a week ago, patient initially went to [place] ER, was found to have blood pressure [...] showed changes similar to 1 done in [place], Labs at [facility], potassium 3.1, creatinine 1.92, bloodglucose 132, EKG [...] % (Auto) 9.1 % (.) 08/13/21 10:44 [place] % (Auto) 4.9 % (.) 08/13/21 10:44 Eos % (Auto) 0.1 % (.) 08/13/21 10:44 Baso % (Auto) 0.7 % (.) 08/13/21 10:44 Neut # (Auto) 9.1 x10E3/uL (1.8-7.7) H 08/13/21 10:44 Lymph # (Auto) 1.0 x10E3/uL (1.00-4.8) 08/13/21 10:44 [place] # (Auto) 0.5 x10E3/uL (0.0-0.8) 08/13/21 10:44 [...] Creatinine is 1.92, more than 1.6 at [place], likely secondary underlying dehydration, continue monitor BMP daily Replace potassium, give magnesium DVT prophylaxis PT OT Documented By: Alaina Arce MD 08/13/21 1150 Signed By: <Electronically signed by Alaina Arce MD> 08/13/21 1213 [facility] Work Phone: 1(323) 846-339102-07-2017 History of Past illness Narrative* Problem Noted Date Diagnosed Date Resolved Date Encounter for screening for malignant neoplasm of colon 03/27/2016 10/09/2022 documented as of this encounter (statuses as of 10/10/2022) [facility] History of Past illness Narrative* Problem Noted Date Diagnosed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
[2023-11-09 10:52] LABS: Anion Gap 11.4; Calcium 9.1 mg/dL (8.5-10.1); Carbon Dioxide 28.1 mmol/L (21.0-32.0); Chloride 104 mmol/L (98-107); Creatine Kinase 88 U/L (26-192); Estimated GFR (African America 54 (>=60); Estimated GFR (Non-African Ame 44 (>=60); Glucose 99 mg/dL (74-106); Magnesium 1.6 mg/dL (1.8-2.4); Potassium 4.5 mmol/L (3.5-5.1); Sodium 139 mmol/L (136-145); Thyroid Stimulating Hormone 1.794 uIU/mL (0.358-3.740)
== END 2023-11-09 10:13 | disposition home or self-care (01) ==
DX: N18.32 Chronic kidney disease, stage 3b (principal)
CPT/HCPCS: 36415; 80048; 82550; 83735; 84443

== ENCOUNTER 2023-11-16 10:50 | Outpatient (OUT) | payer OTHER, SELFPAY ==
--- NOTE | 2023-11-16 10:53 | US_ITS ---
The [address] [address] Patient Name: SIXTO RICH MRN: [id number] date: 1960 Sex: F Assigned Patient Location: [place] Current Patient Location: Accession/Order Number: [id number] Exam Date: 11/16/2023 10:58 Report Date: 11/17/2023 07:13 At the request of: NON-STAFF PHYSICIAN Procedure: US renal BI EXAMINATION: US renal BI HISTORY: CKD stage G3b/A2 COMPARISON: Ultrasound renal bilateral 05/23/2023 TECHNIQUE: Ultrasound examination was performed of the kidneys and urinary bladder. FINDINGS: RIGHT KIDNEY: 7 mm benign-appearing cyst. No evidence of pelvocaliectasis, mass, or calculi. Moderate cortical thinning, 7 mm. Normal parenchymal echogenicity. Color Doppler demonstrates blood flow within the kidney. Kidney: 10.2 x 5.7 x 4.2 cm LEFT KIDNEY: Marked atrophy and cortical thinning (2 mm thick cortex). Color Doppler demonstrates blood flow within the kidney. Kidney: 6.9 x 3.7 x 2.8 cm BLADDER: No visible wall thickening, mass, or calculi. US/US renal BI IMPRESSION: 1. Marked atrophy of left kidney. No appreciable stones, complex cyst, or mass of today's study. Follow-up as clinically indicated. 2. Unremarkable right kidney. Electronically authenticated by: CHRISTIANO WADE Date: 11/17/2023 07:13
--- OUTSIDE RECORDS SUMMARY | 2023-11-16 10:54 | XMS_ITS | CCD ---
Author Organization [facility] Care Team Providers Care Principal Architectural Firm Name Role Phone Unavailable Primary Care Provider Unavailabl e ALEXANDR AMIN S Referring Unavailable NO FAMILY, PHYSICIAN Primary Care Provider Unava MD Alaina Hernandez Admit Provider MD Marquez Beal Referring Provider DO Rober Wyatt Other Provider DO Ricky Reynoso Attending Provider [phone] ALVA Hamm- Janet Attending Provider DARVIN Byrne Attending Provider Linn Byrne Unavailable Shaikh Thompson Unavailable Unavailable Unavailable MD Nick Thompson Primary Care Provider [phone] MD Marquez Beal Attending Provider Emigdio PINON, [...] Care Provider MD Kevyn Sharma Attending Provider [phone] CHARLEE THOMPSONIKH Primary Care Physician Padmini Sam [...] Unavailable FAWWAD, DUNBAR H Primary Care Unavailable [facility] DUN[facility] H Consulting Unavailable Shaikh Thompson MD Primary Care Provider [phone] SHARAKOVA DEBRA Referring Unavailable [facility] DUNBAR Primary Care Unavailable [facility] Referring Unavailable [facility], DUNBAR Primary Care Unavailable Unavailable Unavailable GURMEET OJEDA Attending Unavailable [facility], [facility] Primary Care Unavailable GURMEET OJEDA Attending Unavailable DONNA, DUNBAR Referring Unavailable CHARLEE THOMPSONIKH Primary Care Unavailable MD Nick Thompson Primary Care Provider [phone] MD Jacques East Admit Provider MD Jacques East Attending Provider [phone] MD Marquez Beal Attending Provider Jacques East Admitting Unavailable Jacques East Attending Unavailable Donna, [facility] Primary Care Unavailable Marquez Beal Admitting Unavail able Marquez Beal Attending Unavail able [facility], [facility] Primary Care Unavailable DONNA, DUNBAR Attending Unavailable DONNA, DUNBAR Attending Unavailable ROSIE BLANCHARD Attending Unavailable ROSIE BLANCHARD Attending Unavailable DONNA, DUNBAR Attending Unavailable DONNA, DUNBAR Attending Unavailable DONNA, DUNBAR Attending Unavailable Dereck GROVES Attending Unavailable Gabby De Oliveira H Attending Unavailable Jaxson Johnson Attending Unavailable Damion Cheek Attending Unavailable [facility]UN[facility] Primary Care Unavailable TRUDY ADRIAN Attending Unavailable TRUDY ADRIAN Attending Unavailable Damion Cheek Admitting Unavailable Damion Cheek Attending Unavailable [facility], [facility] Primary Care Unavailable Jaxson Johnson Admitting Unavailable Jaxson Johnson Attending Unavailable MARQUEZ BEAL Attending Unavailable [facility], [facility] Primary Care Unavailable Allergies Allergy Classification Reported Allergen(s) Allergy Type Date of Onset Reaction(s) Facility (20 sources) Codeine; Translations: [CODEINE] Drug Allergy 5 Swelling, Swelling (finding) [facility] (1 source) Codeine Drug Allergy 2 [facility] Repository Medications Current Medications Medication [...] Daily, # 30 cap(s), Refills(s) 2, Pharmacy: [facility] [id number], 163, cm, 06/14/22 13:00:00 EDT, Height/Length Dosing, [...] 03-12-2023 AST [Catalytic activity/Vol] 20 U/L Normal [facility] Comment on above: Order Comment: PT FA STED 121 HOURS Performed By: #### A ST, LIPID, BMP #### [facility] [address] [place] [id number] [place] Aspartate aminotransferase [ Enzymatic activity/volume] in Serum or PlasmaOrdered By: Marquez Beal on 03-12-2023 AST [Catalytic activity/Vol] 20 U/L [address] Basic Metabolic Panelon 02-19 Anion gap [Moles/Vol] 8.4 mmol/L Normal 6.0-15.0 [facility] Comment on above: Order Comment: PT FA STED 121 HOURS Performed By: #### A ST, LIPID, BMP #### [facility] [address] [place] [address] [place] Calcium [Mass/Vol] 9.8 mg/dL Normal 8.6-10.3 [facility] Comment on above: Order Comment: PT FA STED 121 HOURS Performed By: #### A ST, LIPID, BMP #### [facility] [address] [place] [address] [place] Chloride [Moles/Vol] 108 mmol/L High 98-107 [facility] Comment on above: Order Comment: PT FA STED 121 HOURS Performed By: #### A ST, LIPID, BMP #### [facility] [address] [place] [id number] [place] CO2 [Moles/Vol] 30.0 mmol/L Normal 21.0-31.0 [facility] Comment on above: Order Comment: PT FA STED 121 HOURS Performed By: #### A ST, LIPID, BMP #### [facility] [address] [place] [id number] [place] Creatinine [Mass/Vol] 1.39 mg/dL High 0.60-1.20 [facility] Comment on above: Order Comment: PT FA STED 121 HOURS Performed By: #### A ST, LIPID, BMP #### [facility] [address] [place] [address] [place] GFR/1.73 sq M.predicted MDRD (S/P/Bld) [Vol rate/Area] 43.442 mL/min/{1.73_m2} Normal [facility] Comment on above: Order Comment: PT FA STED 121 HOURS Performed By: #### A ST, LIPID, BMP #### [facility] [address] [place] [address] [place] Glucose [Mass/Vol] 93 mg/dL Normal 70-100 [facility] Comment on above: Order Comment: PT FA STED 121 HOURS Result Comment: [place] Glucose Reference Range is dependent on time and content of last meal. Glucose of more than 200 mg/dL in a nonstressed, ambulatory subject supports the diagnosis of Diabetes Mellitus. ADA recommended reference range Performed By: #### A ST, LIPID, BMP #### [facility] [address] [place] [id number] [place] Potassium [Moles/Vol] 5.4 mmol/L High 3.5-5.1 [facility] Comment on above: Order Comment: PT FA STED 121 HOURS Performed By: #### A ST, LIPID, BMP #### [facility] [address] [place] [id number] [place] Sodium [Moles/Vol] 141 mmol/L Normal 136-145 [facility] Comment on above: Order Comment: PT FA STED 121 HOURS Performed By: #### A ST, LIPID, BMP #### [facility] [address] [place] [address] [place] Urea nitrogen [Mass/Vol] 18 mg/dL Normal 7-25 [facility] Comment on above: Order Comment: PT FA STED 121 HOURS Performed By: #### A ST, LIPID, BMP #### [facility] [address] [place] [id number] [place] Calcium [Mass/volume] in Ser um or PlasmaOrdered By: Marquez Beal on 03-12-2023 Calcium [Mass/Vol] 9.8 mg/dL 8.6-10.3 [facility] Carbon dioxide, total [Moles /volume] in Serum or PlasmaOrdered By: Marquez Beal on 03-12-2023 CO2 [Moles/Vol] 30.0 mmol/L 21.0-31.0 [facility] Chloride [Moles/volume] in S oralia or PlasmaOrdered By: Marquez Beal on 03-12-2023 Chloride [Moles/Vol] 108 mmol/L 98-107 [facility] Cholesterol [Mass/volume] in Serum or PlasmaOrdered By: Marquez Beal on 03-12-2023 Cholesterol [Mass/Vol] 171 mg/dL 140-200 [facility] Comment on above: Chol less than 200 m g/dl low riskChol 201-239 mg/dl borderline riskChol 240 mg/dl and greater high risk Cholesterol in LDL Calc [Mas s/Vol]Ordered By: Marquez Beal on 03-12-2023 Cholesterol in LDL [Mass/Vol] 93 mg/dL 0-100 [facility] Comment on above: LDL ATP III CLASSIFI CATIONLDL less than 100 mg/dL OptimalLDL 100-129 mg/dL Near or above optimalLDL 130-159 mg/dL Borderline highLDL 160-189 mg/dL HighLDL greater than 189 mg/dL Very high Cholesterol in VLDL Calc [Ma ss/Vol]Ordered By: Marquez Beal on 03-12-2023 Cholesterol in VLDL [Mass/Vol] 33 mg/dL [facility] Creatinine [Mass/volume] in Serum or PlasmaOrdered By: Marquez Beal on 03-12-2023 Creatinine [Mass/Vol] 1.39 mg/dL 0.60-1.20 [facility] Glucose [Mass/volume] in Ser um or PlasmaOrdered By: Marquez Beal on 03-12-2023 Glucose [Mass/Vol] 93 mg/dL 70-100 [facility] Comment on above: ADA recommended refe rence rangeRandom Glucose Reference Range is dependent on time and content of last meal. Glucose of more than 200 mg/dL in a nonstressed, ambulatory subject supports the diagnosis of Diabetes Mellitus. Lipid Panelon 03-12-2023 Cholesterol [Mass/Vol] 171 mg/dL Normal 140-200 [facility] Comment on above: Order Comment: PT FA STED 121 HOURS Result Comment: Chol less than 200 mg/dl low risk Chol 201-239 mg/dl borderline risk Chol 240 mg/dl and greater high risk Performed By: #### A ST, LIPID, BMP #### [facility] [address] [place] [address] [place] Cholesterol in HDL [Mass/Vol] 45 mg/dL Normal 23-92 [facility] Comment on above: Order Comment: PT FA STED 121 HOURS Result Comment: HDL CHOL ATP-III CLASSIFICATION Cardiovascular Risk HDL > or equal to 60 mg/dL LOW HDL < 40 mg/dL HIGH Performed By: #### A ST, LIPID, BMP #### [facility] [address] [place] [id number] [facility] Cholesterol.total/Chol esterol in HDL [Mass ratio] 3.8 {ratio} Normal <5.0 [facility] Comment on above: Order Comment: PT FA STED 121 HOURS Result Comment: PERF ORMED BY: [facility] [address] [place] [address] PATHOLOGIST [employer]CHO[employer] DIRECTOR JERAMY CALDWELL M.D. Performed By: #### A ST, LIPID, BMP #### [facility] [address] [place] [id number] [place] LDL Cholesterol,Calculated 93 mg/dL Normal 0-100 [facility] Comment on above: Order Comment: PT FA STED 121 HOURS Result Comment: LDL ATP III CLASSIFICATION LDL less than 100 mg/dL Optimal LDL 100-129 mg/dL Near or above optimal LDL 130-159 mg/dL Borderline high LDL 160-189 mg/dL High LDL greater than 189 mg/dL Very high Performed By: #### A ST, LIPID, BMP #### [facility] [address] [place] [address] [place] Triglyceride w/Reflex 165 mg/dL High 0-149 [facility] Comment on above: Order Comment: PT FA STED 121 HOURS Result Comment: TRIG ATP III CLASSIFICATION TRIG less than 150 mg/dL Normal TRIG 150-199 mg/dL Borderline high TRIG 200-500 mg/dL High TRIG greater than 500 mg/dL Very high Standard traceable to the Center for Disease Conrtrol and Prevention (CDC) test method. Performed By: #### A ST, LIPID, BMP #### [facility] [address] [place] [address] [place] VLDL CHOLESTEROL 33 mg/dL Normal [facility] Comment on above: Order Comment: PT FA STED 121 HOURS Performed By: #### A ST, LIPID, BMP #### [facility] [address] No Panel InformationOrdered By: Marquez Beal on 03-12-2023 Estimated GFR (CKD-EPI) 43.442 mL/Min [facility] Creatinine Clearance (Chem N/A [facility] Potassium [Moles/volume] in Serum or PlasmaOrdered By: Marquez Beal on 03-12-2023 Potassium [Moles/Vol] 5.4 mmol/L 3.5-5.1 [facility] Serum or plasma anion gap de terminationOrdered By: Marquez Beal on 03-12-2023 Anion gap [Moles/Vol] 8.4 mmol/L 6.0-15.0 [facility] Serum or plasma high density lipoprotein (HDL) cholesterol measurementOrdered By: Marquez Beal on 03-12-2023 Cholesterol in HDL [Mass/Vol] 45 mg/dL [facility] Comment on above: HDL CHOL ATP-III CLA SSIFICATION Cardiovascular RiskHDL > or equal to 60 mg/dL LOWHDL < 40 mg/dL HIGH Serum or plasma total choles terol/high density lipoprotein (HDL) cholesterol mass ratOrdered By: Marquez Beal on 03-12-2023 Cholesterol.total/Chol esterol in HDL [Mass ratio] 3.8 {ratio} <5.0 [facility] Sodium [Moles/volume] in Ser um or PlasmaOrdered By: Marquez Beal on 03-12-2023 Sodium [Moles/Vol] 141 mmol/L 136-145 [facility] Triglyceride [Mass/volume] i n Serum or PlasmaOrdered By: Marquez Beal on 03-12-2023 Triglyceride [Mass/Vol] 165 mg/dL 0-149 [facility] Comment on above: TRIG ATP III CLASSIF ICATIONTRIG less than 150 mg/dL NormalTRIG 150-199 mg/dL Borderline highTRIG 200-500 mg/dL High TRIG greater than 500 mg/dL Very highStandard traceable to the Center for Disease Conrtrol and Prevention (CDC) test method. Urea nitrogen [Mass/volume] in Serum or PlasmaOrdered By: Marquez Beal on 03-12-2023 Urea nitrogen [Mass/Vol] 18 mg/dL 7-25 [facility] Basic Metabolic Panelon 12-2 Anion gap [Moles/Vol] 12.2 mmol/L Normal 6.0-15.0 [facility] Comment on above: Performed By: #### C BC, BMP ####[facility] [place] [id number] [facility] Calcium [Mass/Vol] 9.4 mg/dL Normal 8.6-10.3 [facility] Comment on above: Performed By: #### C BC, BMP ####[facility] [place] [address] [facility] Chloride [Moles/Vol] 103 mmol/L Normal 98-107 [facility] Comment on above: Performed By: #### C BC, BMP ####[facility] [place] [address] [facility] CO2 [Moles/Vol] 26.2 mmol/L Normal 21.0-31.0 [facility] Comment on above: Performed By: #### C BC, BMP ####[facility] [place] [address] [facility] Creatinine [Mass/Vol] 1.35 mg/dL High 0.60-1.20 [facility] Comment on above: Performed By: #### C BC, BMP ####[facility] [place] [address] [place] Creatinine Clr Calc Pharmacy 40.59 [facility] Comment on above: Result Comment: PERF ORMED BY: [facility] [address] [place] [id number] PATHOLOGIST SCHO[employer] DIRECTOR JERAMY CALDWELL M.D. Performed By: #### C BC, BMP ####[address] [place] [address] [place] GFR/1.73 sq M.predicted MDRD (S/P/Bld) [Vol rate/Area] 44.991 mL/min/{1.73_m2} [facility] Comment on above: Performed By: #### C BC, BMP ####[address] [place] [address] [facility] Glucose [Mass/Vol] 136 mg/dL High 70-100 [facility] Comment on above: Result Comment: [place] Glucose Reference Range is dependent on time and content of last meal. Glucose of more than 200 mg/dL in a nonstressed, ambulatory subject supports the diagnosis of Diabetes Mellitus. ADA recommended reference range Performed By: #### C BC, BMP ####[address] [place] [address] [place] Potassium [Moles/Vol] 5.4 mmol/L High 3.5-5.1 [facility] Comment on above: Performed By: #### C BC, BMP ####[address] [place] [address] [place] Sodium [Moles/Vol] 136 mmol/L Normal 136-145 [facility] Comment on above: Performed By: #### C BC, BMP ####[address] [place] [address] [facility] Urea nitrogen [Mass/Vol] 33 mg/dL High 7-25 [facility] Comment on above: Performed By: #### C BC, BMP ####[facility] [place] [address] [facility] Basophils Auto (Bld) [#/Vol] Ordered By: Jacques Chirinosr on 02-14-2023 Basophils (Bld) [#/Vol] 0.0 10*3/uL 0.0-0.2 [facility] Basophils/100 WBC Auto (Bld) Ordered By: Obreinaldo Talbotomar on 02-14-2023 Basophils/100 WBC (Bld) 0.1 % . [facility] Calcium [Mass/volume] in Ser um or PlasmaOrdered By: Jacques Talbotomar on 02-14-2023 Calcium [Mass/Vol] 9.4 mg/dL 8.6-10.3 [facility] Carbon dioxide, total [Moles /volume] in Serum or PlasmaOrdered By: Jacques Talbotomar on 02-14-2023 CO2 [Moles/Vol] 26.2 mmol/L 21.0-31.0 [facility] Chloride [Moles/volume] in S oralia or PlasmaOrdered By: Jacques Talbotomar on 02-14-2023 Chloride [Moles/Vol] 103 mmol/L 98-107 [facility] Complete Blood Count Auto Di ffon 02-14-2023 Basophils (Bld) [#/Vol] 0.0 10*3/uL Normal 0.0-0.2 [facility] Comment on above: Result Comment: PERF ORMED BY: [facility] [address] [place] [id number] PATHOLOGIST SCHOOL DIRECTOR JERAMY CALDWELL M.D. Performed By: #### C JUANITA, BMP ####[address] [place] [id number] [facility] Basophils/100 WBC (Bld) 0.1 % Normal . [facility] Comment on above: Performed By: #### C BC, BMP ####[address] [place] [id number] [facility] Eosinophils (Bld) [#/Vol] 0.0 10*3/uL Normal 0.0-0.45 [facility] Comment on above: Performed By: #### C BC, BMP ####[place] [id number] [facility] Eosinophils/100 WBC (Bld) 0.0 % Normal . [facility] Comment on above: Performed By: #### C BC, BMP ####[place] [id number] [facility] Erythrocyte distribution width (RBC) [Ratio] 14.6 % Normal 11.9-15.3 [facility] Comment on above: Performed By: #### C BC, BMP ####[place] [id number] [facility] Hematocrit (Bld) [Volume fraction] 44.5 % Normal 34.0-46.4 [facility] Comment on above: Performed By: #### C BC, BMP ####[place] [id number] [facility] Hemoglobin (Bld) [Mass/Vol] 15.1 g/dL Normal 11.8-15.4 [facility] Comment on above: Performed By: #### C JUANITA, BMP ####[place] [id number] [facility] Lymphocytes (Bld) [#/Vol] 1.0 10*3/uL Normal 1.00-4.8 [facility] Comment on above: Performed By: #### C BC, BMP ####[place] [id number] [facility] Lymphocytes/100 WBC (Bld) 7.6 % Normal . [facility] Comment on above: Performed By: #### C BC, BMP ####[address] [address] [facility] MCH (RBC) [Entitic mass] 30.6 pg Normal 24.7-34.3 [facility] Comment on above: Performed By: #### C BC, BMP ####[place] [id number] [facility] MCV (RBC) [Entitic vol] 90.4 fL Normal 80-100 [facility] Comment on above: Performed By: #### C BC, BMP ####[facility] [place] [address] [facility] Mean Corpuscular HGB Conc 33.9 g/dL Normal 32.0-35.0 [facility] Comment on above: Performed By: #### C BC, BMP ####[address] [place] [address] [facility] Monocytes (Bld) [#/Vol] 0.6 10*3/uL Normal 0.0-0.8 [facility] Comment on above: Performed By: #### C BC, BMP ####[address] [address] [facility] Monocytes/100 WBC (Bld) 4.7 % Normal . [facility] Comment on above: Performed By: #### C JUANITA, BMP ####[address] [address] [facility] Neutrophils (Bld) [#/Vol] 11.1 10*3/uL High 1.8-7.7 [facility] Comment on above: Performed By: #### C JUANITA, BMP ####[address] [address] [facility] Neutrophils/100 WBC (Bld) 87.6 % Normal . [facility] Comment on above: Performed By: #### C BC, BMP ####[address] [place] [address] [facility] NRBC% 0.0 /100{WBC} Normal 0-0.5 [facility] Comment on above: Performed By: #### C BC, BMP ####[address] [address] [facility] Platelet mean volume (Bld) [Entitic vol] 8.5 fL Normal 6.3-10.7 [facility] Comment on above: Performed By: #### C BC, BMP ####[address] [address] [facility] Platelets (Bld) [#/Vol] 220 10*3/uL Normal 150-450 [facility] Comment on above: Performed By: #### C BC, BMP ####[facility] [address] [place] [address] [facility] RBC (Bld) [#/Vol] 4.92 10*6/uL Normal 3.60-5.00 [facility] Comment on above: Performed By: #### C BC, BMP ####[facility] [address] [place] [address] [facility] WBC (Bld) [#/Vol] 12.7 10*3/uL High 3.8-11.6 [facility] Comment on above: Performed By: #### C , BMP ####[facility] [id number] [place] [id number] [facility] Creatinine [Mass/volume] in Serum or PlasmaOrdered By: Jacques East on 02-14-2023 Creatinine [Mass/Vol] 1.35 mg/dL 0.60-1.20 [facility] Eosinophils Auto (Bld) [#/Vo l]Ordered By: Jacques Talbotomar on 02-14-2023 Eosinophils (Bld) [#/Vol] 0.0 10*3/uL 0.0-0.45 [facility] Eosinophils/100 WBC Auto (Bl d)Ordered By: Obpatriciadaenrique Talbotomar on 02-14-2023 Eosinophils/100 WBC (Bld) 0.0 % . [facility] Erythrocyte distribution wid th Auto (RBC) [Ratio]Ordered By: Jacques Chirinosr on 02-14-2023 Erythrocyte distribution width (RBC) [Ratio] 14.6 % 11.9-15.3 [facility] Glucose [Mass/volume] in Ser um or PlasmaOrdered By: Jacques Talbotomar on 02-14-2023 Glucose [Mass/Vol] 136 mg/dL 70-100 [facility] Comment on above: ADA recommended refe rence rangeRandom Glucose Reference Range is dependent on time and content of last meal. Glucose of more than 200 mg/dL in a nonstressed, ambulatory subject supports the diagnosis of Diabetes Mellitus. Hematocrit Auto (Bld) [Volum e fraction]Ordered By: Jacques Chirinosr on 02-14-2023 Hematocrit (Bld) [Volume fraction] 44.5 % 34.0-46.4 [facility] Hemoglobin [Mass/volume] in BloodOrdered By: Jacques Talbotomar on 02-14-2023 Hemoglobin (Bld) [Mass/Vol] 15.1 g/dL 11.8-15.4 [facility] Leukocytes [#/volume] correc elliot for nucleated erythrocytes in Blood by Automated counOrdered By: Obpatriciadaenrique Talbotomar on 02-14-2023 WBC corrected for nucl RBC Auto (Bld) [#/Vol] 12.7 10*3/uL 3.8-11.6 [facility] Lymphocytes Auto (Bld) [#/Vo l]Ordered By: Obpatriciadaenrique Talbotomar on 02-14-2023 Lymphocytes (Bld) [#/Vol] 1.0 10*3/uL 1.00-4.8 [facility] Lymphocytes/100 WBC Auto (Bl d)Ordered By: Obpatriciadaenrique Talbotomar on 02-14-2023 Lymphocytes/100 WBC (Bld) 7.6 % . [facility] MCH Auto (RBC) [Entitic mass ]Ordered By: Jacques Talbotomar on 02-14-2023 MCH (RBC) [Entitic mass] 30.6 pg 24.7-34.3 [facility] MCHC Auto (RBC) [Mass/Vol]Or dered By: Obpatriciadaenrique Talbotomar on 02-14-2023 MCHC (RBC) [Mass/Vol] 33.9 g/dL 32.0-35.0 [facility] MCV Auto (RBC) [Entitic vol] Ordered By: Obpatriciadaenrique Talbotomar on 02-14-2023 MCV (RBC) [Entitic vol] 90.4 fL 80-100 [facility] Monocytes Auto (Bld) [#/Vol] Ordered By: Obpatriciadah Antioneomar on 02-14-2023 Monocytes (Bld) [#/Vol] 0.6 10*3/uL 0.0-0.8 [facility] Monocytes/100 WBC Auto (Bld) Ordered By: Obpatriciadah Daromar on 12-28-2023 Monocytes/100 WBC (Bld) 4.7 % . [facility] Neutrophils Auto (Bld) [#/Vo l]Ordered By: Obreinaldo Talbotomar on 02-14-2023 Neutrophils (Bld) [#/Vol] 11.1 10*3/uL 1.8-7.7 [facility] Neutrophils/100 WBC Auto (Bl d)Ordered By: Obpatriciadaenrique Talbotomar on 02-14-2023 Neutrophils/100 WBC (Bld) 87.6 % . [facility] No Panel InformationOrdered By: Obreinaldo Talbotomar on 02-14-2023 Estimated GFR (CKD-EPI) 44.991 mL/Min [facility] Creatinine Clearance (Chem 40.59 [facility] Nucleated erythrocytes [Pres ence] in Blood by Automated countOrdered By: Jacques Talbotomar on 02-14-2023 Nucleated RBC Auto Ql (Bld) 0.0 /100{WBC} 0-0.5 [facility] Platelet mean volume Auto (B ld) [Entitic vol]Ordered By: Obreinaldo Talbotomar on 02-14-2023 Platelet mean volume (Bld) [Entitic vol] 8.5 fL 6.3-10.7 [facility] Platelets Auto (Bld) [#/Vol] Ordered By: Obreinaldo Talbotomar on 02-14-2023 Platelets (Bld) [#/Vol] 220 10*3/uL 150-450 [facility] Potassium [Moles/volume] in Serum or PlasmaOrdered By: Obpatriciadaenrique Talbotomar on 02-14-2023 Potassium [Moles/Vol] 5.4 mmol/L 3.5-5.1 [facility] RBC Auto (Bld) [#/Vol]Ordere d By: Obpatriciadah Antioneomar on 02-14-2023 RBC (Bld) [#/Vol] 4.92 10*6/uL 3.60-5.00 [facility] Serum or plasma anion gap de terminationOrdered By: Obpatriciadah Antioneomar on 02-14-2023 Anion gap [Moles/Vol] 12.2 mmol/L 6.0-15.0 [facility] Sodium [Moles/volume] in Ser um or PlasmaOrdered By: Obpatriciadaenrique Talbotomar on 02-14-2023 Sodium [Moles/Vol] 136 mmol/L 136-145 [facility] Urea nitrogen [Mass/volume] in Serum or PlasmaOrdered By: Obpatriciadaenrique Talbotomar on 02-14-2023 Urea nitrogen [Mass/Vol] 33 mg/dL 7-25 [facility] WBC Auto (Bld) [#/Vol]Ordere d By: Obaydah Daromar on 02-14-2023 WBC (Bld) [#/Vol] 12.7 10*3/uL 3.8-11.6 [facility] Alanine aminotransferase [En zymatic activity/volume] in Serum or PlasmaOrdered By: Obreinaldo Talbotomar on 02-13-2023 ALT [Catalytic activity/Vol] 16 U/L 7-52 [facility] Albumin [Mass/volume] in Ser um or Plasma by Bromocresol green (BCG) dye binding methoOrdered By: Obpatriciadaenrique Talbotomar on 02-13-2023 Albumin BCG dye [Mass/Vol] 4.0 g/dL 3.5-5.7 [facility] Alkaline phosphatase [Enzyma tic activity/volume] in Serum or PlasmaOrdered By: Obpatriciadaenrique Talbotomar on 02-13-2023 ALP [Catalytic activity/Vol] 57 U/L 34-104 [facility] Aspartate aminotransferase [ Enzymatic activity/volume] in Serum or PlasmaOrdered By: Obpatriciadaenrique Talbotomar on 02-13-2023 AST [Catalytic activity/Vol] 22 U/L 13-39 [facility] Bilirubin.total [Mass/volume ] in Serum or PlasmaOrdered By: Obpatriciadaenrique Talbotomar on 02-13-2023 Bilirubin [Mass/Vol] 0.6 mg/dL 0.3-1.0 [facility] Complete Blood Count Auto Di ffon 02-13-2023 Basophils (Bld) [#/Vol] 0.0 10*3/uL Normal 0.0-0.2 [facility] Comment on above: Result Comment: PERF ORMED BY: [facility] [address] [place] [address] PATHOLOGIST SCHO[employer] DIRECTOR JERAMY CALDWELL M.D. Performed By: #### C BC MG, CMP ####[address] Basophils/100 WBC (Bld) 0.2 % Normal . [facility] Comment on above: Performed By: #### C BC MG, CMP ####[address] Eosinophils (Bld) [#/Vol] 0.0 10*3/uL Normal 0.0-0.45 [facility] Comment on above: Performed By: #### C BC MG, CMP ####[address] Eosinophils/100 WBC (Bld) 0.0 % Normal . [facility] Comment on above: Performed By: #### C BC MG, CMP ####[address] Erythrocyte distribution width (RBC) [Ratio] 14.4 % Normal 11.9-15.3 [facility] Comment on above: Performed By: #### C BC MG, CMP ####[address] Hematocrit (Bld) [Volume fraction] 43.2 % Normal 34.0-46.4 [facility] Comment on above: Performed By: #### C BC MG, CMP ####[address] Hemoglobin (Bld) [Mass/Vol] 14.6 g/dL Normal 11.8-15.4 [facility] Comment on above: Performed By: #### C BC, MG, CMP ####[address] Lymphocytes (Bld) [#/Vol] 2.7 10*3/uL Normal 1.00-4.8 [facility] Comment on above: Performed By: #### C BC, MG, CMP ####[address] Lymphocytes/100 WBC (Bld) 18.3 % Normal . [facility] Comment on above: Performed By: #### C JUANITA MG, CMP ####[address] MCH (RBC) [Entitic mass] 30.5 pg Normal 24.7-34.3 [facility] Comment on above: Performed By: #### C JUANITA MG, CMP ####[address] MCV (RBC) [Entitic vol] 90.1 fL Normal 80-100 [facility] Comment on above: Performed By: #### C JUANITA MG, CMP ####[address] Mean Corpuscular HGB Conc 33.8 g/dL Normal 32.0-35.0 [facility] Comment on above: Performed By: #### C JUANITA MG, CMP ####[address] Monocytes (Bld) [#/Vol] 1.2 10*3/uL High 0.0-0.8 [facility] Comment on above: Performed By: #### C JUANITA MG, CMP ####[address] Monocytes/100 WBC (Bld) 7.9 % Normal . [facility] Comment on above: Performed By: #### C JUANITA MG, CMP ####[address] Neutrophils (Bld) [#/Vol] 11.0 10*3/uL High 1.8-7.7 [facility] Comment on above: Performed By: #### C BC MG, CMP ####[place] [id number] [facility] Neutrophils/100 WBC (Bld) 73.6 % Normal . [facility] Comment on above: Performed By: #### C JUANITA MG, CMP ####[address] NRBC% 0.1 /100{WBC} Normal 0-0.5 [facility] Comment on above: Performed By: #### C BC, MG, CMP ####[address] Platelet mean volume (Bld) [Entitic vol] 7.8 fL Normal 6.3-10.7 [facility] Comment on above: Performed By: #### C BC, MG, CMP ####[place] [id number] [facility] Platelets (Bld) [#/Vol] 212 10*3/uL Normal 150-450 [facility] Comment on above: Performed By: #### C BC, MG, CMP ####[address] RBC (Bld) [#/Vol] 4.80 10*6/uL Normal 3.60-5.00 [facility] Comment on above: Performed By: #### C BC, MG, CMP ####[address] WBC (Bld) [#/Vol] 14.9 10*3/uL High 3.8-11.6 [facility] Comment on above: Performed By: #### C BC, MG, CMP ####[address] Comprehensive Metabolic Pane franco 02-13-2023 Albumin [Mass/Vol] 4.0 g/dL Normal 3.5-5.7 [facility] Comment on above: Performed By: #### C BC, MG, CMP ####[place] [id number] [facility] Albumin/Globulin [Mass ratio] 1.6 {ratio} Normal [facility] Comment on above: Performed By: #### C BC, MG, CMP ####[address] ALP [Catalytic activity/Vol] 57 U/L Normal 34-104 [facility] Comment on above: Performed By: #### C BC MG, CMP ####[place] [id number] [place] [id number] [facility] ALT [Catalytic activity/Vol] 16 U/L Normal 7-52 [facility] Comment on above: Performed By: #### C BC MG, CMP ####[place] [id number] [facility] Anion gap [Moles/Vol] 9.4 mmol/L Normal 6.0-15.0 [facility] Comment on above: Performed By: #### C JUANITA MG, CMP ####[address] AST [Catalytic activity/Vol] 22 U/L Normal 13-39 [facility] Comment on above: Performed By: #### C BC MG, CMP ####[place] [id number] [facility] Bilirubin [Mass/Vol] 0.6 mg/dL Normal 0.3-1.0 [facility] Comment on above: Performed By: #### C BC MG, CMP ####[place] [id number] [facility] Calcium [Mass/Vol] 9.2 mg/dL Normal 8.6-10.3 [facility] Comment on above: Performed By: #### C BC, MG, CMP ####[place] [id number] [facility] Chloride [Moles/Vol] 105 mmol/L Normal 98-107 [facility] Comment on above: Performed By: #### C BC MG, CMP ####[place] [id number] [facility] CO2 [Moles/Vol] 27.1 mmol/L Normal 21.0-31.0 [facility] Comment on above: Performed By: #### C BC, MG, CMP ####[place] [id number] [facility] Creatinine [Mass/Vol] 1.45 mg/dL High 0.60-1.20 [facility] Comment on above: Performed By: #### C BC, MG, CMP ####[place] [id number] [facility] Creatinine Clr Calc Pharmacy 37.90 [facility] Comment on above: Performed By: #### C BC, MG, CMP ####[address] GFR/1.73 sq M.predicted MDRD (S/P/Bld) [Vol rate/Area] 41.294 mL/min/{1.73_m2} [facility] Comment on above: Performed By: #### C BC, MG, CMP ####[address] Globulin (S) [Mass/Vol] 2.5 g/dL [facility] Comment on above: Performed By: #### C BC, MG, CMP ####[address] Glucose [Mass/Vol] 92 mg/dL Normal 70-100 [facility] Comment on above: Result Comment: [place] Glucose Reference Range is dependent on time and content of last meal. Glucose of more than 200 mg/dL in a nonstressed, ambulatory subject supports the diagnosis of Diabetes Mellitus. ADA recommended reference range Performed By: #### C BC, MG, CMP ####[place] [id number] [facility] Potassium [Moles/Vol] 4.5 mmol/L Normal 3.5-5.1 [facility] Comment on above: Performed By: #### C BC, MG, CMP ####[place] [id number] [facility] Protein [Mass/Vol] 6.5 g/dL Normal 6.4-8.9 [facility] Comment on above: Performed By: #### C BC, MG, CMP ####[place] [id number] [facility] Sodium [Moles/Vol] 137 mmol/L Normal 136-145 [facility] Comment on above: Performed By: #### C BC, MG, CMP ####[place] [address] [place] [id number] [facility] Urea nitrogen [Mass/Vol] 28 mg/dL High 7-25 [facility] Comment on above: Performed By: #### C BC, MG, CMP ####[facility] [place] [address] [facility] Globulin Calc (S) [Mass/Vol] Ordered By: Obpatriciadah Daromar on 02-13-2023 Globulin (S) [Mass/Vol] 2.5 g/dL [facility] Magnesiumon 02-13-2023 Magnesium [Mass/Vol] 1.8 mg/dL Low 1.9-2.7 [facility] Comment on above: Result Comment: PERF ORMED BY: [facility] [address] [place] [id number] PATHOLOGIST SCHOOL DIRECTOR JERAMY CALDWELL M.D. Performed By: #### C BC, MG, CMP ####[place] [address] [place] [address] [facility] Magnesium [Mass/volume] in S oralia or PlasmaOrdered By: Obpatriciadah Daromar on 02-13-2023 Magnesium [Mass/Vol] 1.8 mg/dL 1.9-2.7 [facility] Protein [Mass/volume] in Ser um or PlasmaOrdered By: Obaydah Daromar on 02-13-2023 Protein [Mass/Vol] 6.5 g/dL 6.4-8.9 [facility] Serum or plasma albumin/glob ulin mass ratioOrdered By: Obaydah Daromar on 02-13-2023 Albumin/Globulin [Mass ratio] 1.6 {ratio} [facility] Activated partial thrombopla stin time (aPTT) in platelet poor plasma by coagulation aOrdered By: Sally Valle on 02-12-2023 aPTT Coag (PPP) [Time] 25.6 s 25.1-36.5 [facility] Comment on above: A hematocrit value g reater than 55% may lead to inaccurate results in coagulation testing. Patients having hematocrit values >55% require a special collection tube for coagulation studies. Please contact the laboratory at [phone] for redraw instructions. Aerobic Cultureon 02-12-2023 Aerobic Culture Light Normal Respira tory Zoe 2 Days Gram Stain Result Rare Epithelial Cells 1+ White Blood Cells Rare Gram Positive Coccobacilli PERFORMED BY: [place] [id number] PATHOLOGIST SCHOOL DIRECTOR JERAMY CALDWELL M.D. Normal [facility] Comment on above: Performed By: #### A HANNAH, #### [address] Auth for Release of Medical Recordson 02-12-2023 Auth for Release of Medical Records [id number] Normal [facility] Automated erythrocytes count in urine sediment (number/area)Ordered By: Jacques East on 02-12-2023 RBC Auto (Urine sed) [#/Area] 1-2 [HPF] 0-4 [facility] Automated leukocytes count i n urine sediment (number/area)Ordered By: Jacques Chirinosr on 02-12-2023 WBC Auto (Urine sed) [#/Area] 3-4 [HPF] 0-4 [facility] Bilirubin Test strip Ql (U)O rdered By: Jacques East on 02-12-2023 Bilirubin Ql (U) Negative Negative [facility] C Urineon 02-12-2023 Bacteria identified Cx [...] Locations R1: This test was performed at: [facility], [address] [place] [address], [id number] , [place], Normal [facility] Comment on above: Performed By: #### 2 [id number] ####[facility] [address] [place] [address] Coagulation Profileon 2022 aPTT Coag (Bld) [Time] 25.6 s Normal 25.1-36.5 [facility] Comment on above: Result Comment: A he matocrit value greater than 55% may lead to inaccurate results in coagulation testing. Patients having hematocrit values >55% require a special collection tube for coagulation studies. Please contact the laboratory at [phone] for redraw instructions. PERFORMED BY: [facility] [address] [facility] [place] [address] PATHOLOGIST SCHOOL DIRECTOR JERAMY CALDWELL M.D. Performed By: #### C JUANITA, PP, CMP ####[place] [address] [place] [address] [facility] INR Coag (PPP) [Relative time] 0.9 {INR} Normal [facility] Comment on above: Result Comment: [...] Performed By: #### C BC, PP, CMP ####[address] [address] [facility] PT Coag (PPP) [Time] 10.9 s Normal 9.0-12.9 [facility] Comment on above: Result Comment: A he matocrit value greater than 55% may lead to inaccurate results in coagulation testing. Patients having hematocrit values >55% require a special collection tube for coagulation studies. Please contact the laboratory at [phone] for redraw instructions. Performed By: #### C BC, PP, CMP ####[place] [address] [place] [address] [facility] Color Auto (U)Ordered By: Ob reinaldo East on 02-12-2023 Color (U) Yellow Yellow [facility] Complete Blood Count Auto Di ffon 02-12-2023 Basophils (Bld) [#/Vol] 0.0 10*3/uL Normal 0.0-0.2 [facility] Comment on above: Result Comment: PERF ORMED BY: [place] [address] PATHOLOGIST SCHOOL DIRECTOR JERAMY CALDWELL M.D. Performed By: #### C BC, PP, CMP #### [facility] [address] Basophils/100 WBC (Bld) 0.2 % Normal . [facility] Comment on above: Performed By: #### C BC, PP, CMP #### [facility] [address] Eosinophils (Bld) [#/Vol] 0.0 10*3/uL Normal 0.0-0.45 [facility] Comment on above: Performed By: #### C BC, PP, CMP #### [facility] [address] [place] [address] [place] Eosinophils/100 WBC (Bld) 0.0 % Normal . [facility] Comment on above: Performed By: #### C BC, PP, CMP #### [facility] [address] [place] [address] Erythrocyte distribution width (RBC) [Ratio] 14.6 % Normal 11.9-15.3 [facility] Comment on above: Performed By: #### C BC, PP, CMP #### [facility] [address] Hematocrit (Bld) [Volume fraction] 46.1 % Normal 34.0-46.4 [facility] Comment on above: Performed By: #### C BC, PP, CMP #### [facility] [address] [place] [address] Hemoglobin (Bld) [Mass/Vol] 15.6 g/dL High 11.8-15.4 [facility] Comment on above: Performed By: #### C BC, PP, CMP #### [facility] [address] [place] [address] [place] Lymphocytes (Bld) [#/Vol] 0.6 10*3/uL Low 1.00-4.8 [facility] Comment on above: Performed By: #### C BC, PP, CMP #### [facility] [address] [place] [address] [place] Lymphocytes/100 WBC (Bld) 4.0 % Normal . [facility] Comment on above: Performed By: #### C BC, PP, CMP #### [facility] [address] MCH (RBC) [Entitic mass] 30.6 pg Normal 24.7-34.3 [facility] Comment on above: Performed By: #### C BC, PP, CMP #### [facility] [address] MCV (RBC) [Entitic vol] 90.6 fL Normal 80-100 [facility] Comment on above: Performed By: #### C BC, PP, CMP #### [facility] [address] Mean Corpuscular HGB Conc 33.8 g/dL Normal 32.0-35.0 [facility] Comment on above: Performed By: #### C BC, PP, CMP #### [facility] [address] [place] [address] [place] Monocytes (Bld) [#/Vol] 0.3 10*3/uL Normal 0.0-0.8 [facility] Comment on above: Performed By: #### C BC, PP, CMP #### [facility] [address] [place] [address] [place] Monocytes/100 WBC (Bld) 1.8 % Normal . [facility] Comment on above: Performed By: #### C BC, PP, CMP #### [facility] [address] [place] [address] [place] Neutrophils (Bld) [#/Vol] 14.1 10*3/uL High 1.8-7.7 [facility] Comment on above: Performed By: #### C BC, PP, CMP #### [address] Neutrophils/100 WBC (Bld) 94.0 % Normal . [facility] Comment on above: Performed By: #### C BC, PP, CMP #### [address] NRBC% 0.1 /100{WBC} Normal 0-0.5 [facility] Comment on above: Performed By: #### C BC, PP, CMP #### [address] Platelet mean volume (Bld) [Entitic vol] 7.9 fL Normal 6.3-10.7 [facility] Comment on above: Performed By: #### C BC, PP, CMP #### [address] Platelets (Bld) [#/Vol] 236 10*3/uL Normal 150-450 [facility] Comment on above: Performed By: #### C BC, PP, CMP #### [address] RBC (Bld) [#/Vol] 5.09 10*6/uL High 3.60-5.00 [facility] Comment on above: Performed By: #### C BC, PP, CMP #### [address] WBC (Bld) [#/Vol] 15.0 10*3/uL High 3.8-11.6 [facility] Comment on above: Performed By: #### C BC, PP, CMP #### [address] Comprehensive Metabolic Pane franco 02-12-2023 Albumin [Mass/Vol] 4.6 g/dL Normal 3.5-5.7 [facility] Comment on above: Performed By: #### C BC, PP, CMP #### [place] [address] [place] Albumin/Globulin [Mass ratio] 1.5 {ratio} Normal [facility] Comment on above: Performed By: #### C JUANITA PP, CMP #### [facility] [address] ALP [Catalytic activity/Vol] 70 U/L Normal 34-104 [facility] Comment on above: Performed By: #### C JUANITA, PP, CMP #### [address] ALT [Catalytic activity/Vol] 19 U/L Normal 7-52 [facility] Comment on above: Performed By: #### C JUANITA PP, CMP #### [address] Anion gap [Moles/Vol] Not performed Normal 6.0-15.0 [facility] Comment on above: Performed By: #### C JUANITA PP, CMP #### [address] AST [Catalytic activity/Vol] 29 U/L Normal 13-39 [facility] Comment on above: Performed By: #### C JUANITA PP, CMP #### [address] Bilirubin [Mass/Vol] 0.5 mg/dL Normal 0.3-1.0 [facility] Comment on above: Performed By: #### C JUANITA PP, CMP #### [address] Calcium [Mass/Vol] 9.9 mg/dL Normal 8.6-10.3 [facility] Comment on above: Performed By: #### C JUANITA, PP, CMP #### [facility] [address] [place] [address] Chloride [Moles/Vol] 106 mmol/L Normal 98-107 [facility] Comment on above: Performed By: #### C BC, PP, CMP #### [address] CO2 [Moles/Vol] 20.4 mmol/L Low 21.0-31.0 [facility] Comment on above: Performed By: #### C BC, PP, CMP #### [facility] [address] Creatinine [Mass/Vol] 1.65 mg/dL High 0.60-1.20 [facility] Comment on above: Performed By: #### C BC, PP, CMP #### [facility] [address] Creatinine Clr Calc Pharmacy 34.03 [facility] Comment on above: Result Comment: PERF ORMED BY: [place] [address] PATHOLOGIST SCHOOL DIRECTOR JERAMY CALDWELL M.D. Performed By: #### C BC, PP, CMP #### [facility] [address] GFR/1.73 sq M.predicted MDRD (S/P/Bld) [Vol rate/Area] 35.363 mL/min/{1.73_m2} [facility] Comment on above: Performed By: #### C BC, PP, CMP #### [facility] [address] Globulin (S) [Mass/Vol] 3.1 g/dL [facility] Comment on above: Performed By: #### C BC, PP, CMP #### [facility] [address] Glucose [Mass/Vol] 157 mg/dL High 70-100 [facility] Comment on above: Result Comment: [place] Glucose Reference Range is dependent on time and content of last meal. Glucose of more than 200 mg/dL in a nonstressed, ambulatory subject supports the diagnosis of Diabetes Mellitus. ADA recommended reference range Performed By: #### C BC, PP, CMP #### [facility] [address] Potassium Normal 3.5-5.1 [facility] Comment on above: Result Comment: Spec imen hemolyzed, redraw requested Performed By: #### C BC, PP, CMP #### [facility] [address] [place] [id number] [place] Protein [Mass/Vol] 7.7 g/dL Normal 6.4-8.9 [facility] Comment on above: Performed By: #### C BC, PP, CMP #### [facility] [address] Sodium [Moles/Vol] 140 mmol/L Normal 136-145 [facility] Comment on above: Performed By: #### C BC, PP, CMP #### [facility] [address] Urea nitrogen [Mass/Vol] 32 mg/dL High 09-11 [facility] Comment on above: Performed By: #### C BC, PP, CMP #### [facility] [address] [place] [address] [place] Dipstick and Microscopicon 1 04-15-2022 Appearance (U) Clear Normal Clear [facility] Comment on above: Order Comment: Name Collection Type:: Clean-Voided Midstream Performed By: #### A DDONUAPLUS #### [facility] [address] [place] [address] [place] Bacteria,Urine None Seen Normal None Seen [facility] Comment on above: Order Comment: Name Collection Type:: Clean-Voided Midstream Performed By: #### A DDONUAPLUS #### [facility] [address] [place] [address] [place] Bilirubin,Urine Negative Normal Negative [facility] Comment on above: Order Comment: Name Collection Type:: Clean-Voided Midstream Performed By: #### A DDONUAPLUS #### [facility] [address] [place], [place] [id number] [place] Color (U) Yellow Normal Yellow [facility] Comment on above: Order Comment: Name Collection Type:: Clean-Voided Midstream Performed By: #### A DDONUAPLUS #### [facility] [address] [place] [address] [place] Glucose Ql (U) Normal Normal Normal [facility] Comment on above: Order Comment: Name Collection Type:: Clean-Voided Midstream Performed By: #### A DDONUAPLUS #### [place] [address] [place] Hyaline Casts,Urine 0-8 Normal 0-8 [facility] Comment on above: Order Comment: Name Collection Type:: Clean-Voided Midstream Result Comment: PERF ORMED BY: [place] [address] PATHOLOGIST SCHOOL DIRECTOR JERAMY CALDWELL M.D. Performed By: #### A DDONUAPLUS #### [address] Ketones Ql (U) Negative Normal Negative [facility] Comment on above: Order Comment: Name Collection Type:: Clean-Voided Midstream Performed By: #### A DDONUAPLUS #### [address] Leukocyte esterase Test strip Ql (U) 1+ High Negative [facility] Comment on above: Order Comment: Name Collection Type:: Clean-Voided Midstream Performed By: #### A DDONUAPLUS #### [place] [address] [place] Nitrite,Urine Negative Normal Negative [facility] Comment on above: Order Comment: Name Collection Type:: Clean-Voided Midstream Performed By: #### A DDONUAPLUS #### [place] [address] [place] Occult Blood,Urine Negative Normal Negative [facility] Comment on above: Order Comment: Name Collection Type:: Clean-Voided Midstream Result Comment: PERF ORMED BY: [place] [address] PATHOLOGIST SCHOOL DIRECTOR JERAMY CALDWELL M.D. Performed By: #### A DDONUAPLUS #### [place] [address] [place] pH (U) 5.0 [pH] Normal 5.0-9.0 [facility] Comment on above: Order Comment: Name Collection Type:: Clean-Voided Midstream Performed By: #### A DDONUAPLUS #### [place] [address] [place] Protein,Urine Negative Normal Negative [facility] Comment on above: Order Comment: Name Collection Type:: Clean-Voided Midstream Performed By: #### A DDONUAPLUS #### [place] [address] [place] RBC,Urine 1-2 Normal 0-4 [facility] Comment on above: Order Comment: Name Collection Type:: Clean-Voided Midstream Performed By: #### A DDONUAPLUS #### [place] [address] [place] Specificy Shepherd,Urine 1.017 Normal 1.001-1.03 0 [facility] Comment on above: Order Comment: Name Collection Type:: Clean-Voided Midstream Performed By: #### A DDONUAPLUS #### [place] [address] [place] Squamous Epithelial Cell,Urine 0-1 Normal 0-2 [facility] Comment on above: Order Comment: Name Collection Type:: Clean-Voided Midstream Performed By: #### A DDONUAPLUS #### [place] [address] [place] Urobilinogen,Urine Normal Normal Normal [facility] Comment on above: Order Comment: Name Collection Type:: Clean-Voided Midstream Performed By: #### A DDONUAPLUS #### [facility] [address] [place] [address] [place] WBC,Urine 3-4 Normal 0-4 [facility] Comment on above: Order Comment: Name Collection Type:: Clean-Voided Midstream Performed By: #### A DDONUAPLUS #### [place] [address] [place] ECG 12 lead ECGon 02-12-2023 ECG 12 lead ECG [facility] Main [place] [address] [place] [address] Electrocardiograph Report Signed Patient: Deysi Hernandez MR#: [id number] : 1960 Acct:[id number] Age/Sex: 62 / F ADM Date: 02/12/23 Loc: Room: [address] [place] [address] Type: ADM IN Attending Dr: Jacques East [...] Signed By Bj Bay DO 02/13 1109 [facility] Gram Stainon 02-12-2023 Microscopic observation Gram stain Nom (Unsp spec) Gram Stain Result Rare Epithelial Cells 1+ White Blood Cells Rare Gram Positive Coccobacilli PERFORMED BY: [place] [address] PATHOLOGIST SCHOOL DIRECTOR JERAMY CALDWELL M.D. [facility] Comment on above: Performed By: #### A [facility], #### [address] Gram stain for investigation of transfusion reactionOrdered By: Jacques East on 02-12-2023 Microscopic observation Gram stain Nom (Unsp spec) [facility] Microscopic observation Gram stain Nom (Unsp spec) 2 Days [facility] INR in Platelet poor plasma by Coagulation assayOrdered By: Sally Valle on 02-12-2023 INR Coag (PPP) [Relative time] 0.9 {INR} [facility] Comment on above: INR Therapeutic [...] on 02-12-2023 Ketones (U) [Mass/Vol] Negative Negative [facility] - UrinalysisOrder ed By: Jacques East on 02-12-2023 Hyaline casts LM Ql (Urine sed) 0-8 [LPF] 0-8 [facility] Magnesiumon 02-12-2023 Magnesium [Mass/Vol] 1.8 mg/dL Low 1.9-2.7 [facility] Comment on above: Result Comment: PERF ORMED BY: [facility] [address] [place] [address] PATHOLOGIST SCHOOL DIRECTOR JERAMY CALDWELL M.D. Performed By: #### M G ####[facility] [address] [place] [id number] [facility] Nitrite Test strip Ql (U)Ord ered By: Jacques East on 02-12-2023 Nitrite Ql (U) Negative Negative [facility] Protein Auto test strip (U) [Mass/Vol]Ordered By: Jacques East on 02-12-2023 Protein (U) [Mass/Vol] Negative Negative [facility] Prothrombin time (PT)Ordered By: Sally Valle on 02-12-2023 PT Coag (PPP) [Time] 10.9 s 9.0-12.9 [facility] Comment on above: A hematocrit value g reater than 55% may lead to inaccurate results in coagulation testing. Patients having hematocrit values >55% require a special collection tube for coagulation studies. Please contact the laboratory at [phone] for redraw instructions. Redraw Potassiumon 3 Potassium [Moles/Vol] 4.4 mmol/L Normal 3.5-5.1 [facility] Comment on above: Order Comment: 1ST S pecimen hemolyzed, redraw requested Result Comment: PERF ORMED BY: [place] [address] [place] [place] [id number] PATHOLOGIST SCHOOL DIRECTOR JERAMY CALDWELL M.D. Performed By: #### R EDRAW K ####[place] [id number] [facility] Specific gravity Auto test s trip (U) [Rel density]Ordered By: Astro on 02-12-2023 Specific gravity (U) [Rel density] 1.017 1.001-1.03 0 [facility] Squamous epithelial cells de tection in urine sediment by light microscopyOrdered By: [employer] on 02-12-2023 Epithelial cells.squamous LM Ql (Urine sed) 0-1 [HPF] 0-2 [facility] Troponin I High Sensitivityo n 02-12-2023 Troponin I High Sensitivity 43.8 pg/mL High 0.0-15.0 [facility] Comment on above: Result Comment: PERF ORMED BY: [facility] [address] [place] [address] PATHOLOGIST SCHOOL DIRECTOR JERAMY CALDWELL M.D. Performed By: #### H S TROP ####[place] [id number] [facility] Troponin I High Sensitivity 70.6 pg/mL Off scale high 0.0-15.0 [facility] Comment on above: Result Comment: Crit ical Result : Called to and read back by: BRANDON LEVINE at: 02/12/2023 08:07:31 by:LUCIANO PERFORMED BY: [facility] [address] [place] [id number] PATHOLOGIST SCHOOL DIRECTOR JERAMY CALDWELL M.D. Performed By: #### H S TROP ####[place] [id number] [facility] Troponin I.cardiac [Mass/vol ume] in Serum or Plasma by Detection limit <= 0.01 ng/Ordered By: Sally Valle on 02-12-2023 Troponin I.cardiac DL <= 0.01 ng/mL [Mass/Vol] 43.8 pg/mL 0.0-15.0 [facility] Urine bacteria detection by automated methodOrdered By: Jacques East on 02-12-2023 Bacteria Auto Ql (U) None seen None Seen [facility] Urine clarity by refractomet ry automatedOrdered By: Jacques East on 02-12-2023 Clarity Refractometry automated (U) Clear Clear [facility] Urine glucose measurement by automated test strip (mass/volume)Ordered By: Jacques East on 02-12-2023 Glucose Auto test strip (U) [Mass/Vol] Normal mg/dL Normal [facility] Urine hemoglobin detection b y automated test stripOrdered By: Jacques East on 02-12-2023 Hemoglobin Auto test strip Ql (U) Negative Negative [facility] Urine leukocyte esterase det ection by automated test stripOrdered By: Jacques East on 02-12-2023 Leukocyte esterase Auto test strip Ql (U) 1+ Negative [facility] Urobilinogen Auto test strip (U) [Mass/Vol]Ordered By: Jacques East on 02-12-2023 Urobilinogen (U) [Mass/Vol] Normal mg/dL Normal [facility] XR chest 1V portableon 02-12 XR chest 1V portable [facility] [place] [address] XRay Report Signed Patient: Deysi Hernandez MR#: [id number] : 1960 Acct:[id number] Age/Sex: 62 / F ADM Date: 02/12/23 Loc: Room: [address] [place] [address] Type: ADM IN Attending Dr: Jacques East [...] Bj Ma M.D.02/12/2023 12:40 PM Dictation Location: [place] [address] Transcribed By: [facility] 02/12/23 1240 Dictated By: Bj Ma DO 02/12/23 1237 Signed By: 02/12/23 1240 Normal [facility] pH Auto test strip (U)Ordere d By: Jacques East on 02-12-2023 pH (U) 5.0 [pH] 5.0-9.0 [facility] Ambulatory Visit Summaryon 1 04-13-2022 Ambulatory Visit Summary DEYSI HERNANDEZ :1960 Visit Date:02/10/2023 Ambulatory Visit Instructions Your Diagnosis Dysuria Tests Performed Urnls Dip Stick Auto w/o Microscopy POC 00847 Your Care Team Attending Physician - Alex BRIDGES, Jaxson W. Primary Care Physician - DONNA FINNEY, [facility] This Is Your Medications List Misc Prescription [...] Urnls Dip Stick Auto w/o Microscopy POC 11777 (02/10/2023) Bilirubin Urine Dipstick - Negative Blood Urine Dipstick - 2+ Moderate Glucose Urine Dipstick - Negative Ketones Urine Dipstick - Negative Leukocytes Urine Dipstick - 1+ Small Nitrite Urine Dipstick - Positive Protein Urine Dipstick - Negative Specific Shepherd Urine Dipstick - 1.015 Urine Appearance Urine [...] us for your care. Normal [facility] Auto Diffon 02-10-2023 Basophils/100 WBC (Bld) 1.3 % Normal 0.0-2.0 [facility] Comment on above: Order Comment: Order Added by Discern Expert. Performed By: #### 2 277718, 97515446, 98910346, 8256821, 8783999, 27891084, 25487913 ####[facility] [address] [place] [address] Basophils/Leukocytes Auto (Bld) [Pure # fraction] 0.1 E9/L Normal 0.0-0.2 [facility] Comment on above: Order Comment: Order Added by Discern Expert. Performed By: #### 2 660394, 52445587, 88551868, 7926813, 8965169, 76691163, 77142525 ####[address] [address] Eosinophils/100 WBC (Bld) 1.5 % Normal 0.0-8.0 [facility] Comment on above: Order Comment: Order Added by Discern Expert. Performed By: #### 2 278799, 21728969, 70787011, 6034487, 4912816, 69092383, 76451783 ####[place] [address] [place] [address] Eosinophils/Leukocytes Auto (Bld) [Pure # fraction] 0.1 E9/L Normal 0.0-0.5 [facility] Comment on above: Order Comment: Order Added by Discern Expert. Performed By: #### 2 498399, 47159157, 74281909, 8106050, 2443329, 41029840, 16560834 ####[address] [address] Lymphocytes/100 WBC (Bld) 16.8 % Normal 14.0-50.0 [facility] Comment on above: Order Comment: Order Added by Discern Expert. Performed By: #### 2 617260, 65502632, 83248780, 5613391, 4494566, 82287742, 45876577 ####[address] [address] Lymphocytes/Leukocytes Auto (Bld) [Pure # fraction] 1.6 E9/L Normal 1.0-4.0 [facility] Comment on above: Order Comment: Order Added by Discern Expert. Performed By: #### 2 837192, 48600761, 68324094, 2280433, 2348154, 39460006, 22023480 ####[address] [address] Monocytes/100 WBC (Bld) 9.8 % Normal 4.0-14.0 [facility] Comment on above: Order Comment: Order Added by Discern Expert. Performed By: #### 2 518557, 90835040, 53598850, 7828777, 4483912, 25087221, 93949337 ####[place] [address] [place] [address] Monocytes/Leukocytes Auto (Bld) [Pure # fraction] 0.9 E9/L Normal 0.2-1.0 [facility] Comment on above: Order Comment: Order Added by Discern Expert. Performed By: #### 2 150991, 83645308, 63417111, 7570106, 7595512, 31509168, 22769207 ####[place] [address] [place] [address] Neutrophils/100 WBC (Bld) 70.6 % Normal 36.0-75.0 [facility] Comment on above: Order Comment: Order Added by Discern Expert. Performed By: #### 2 911177, 00011774, 53739433, 8252792, 7110212, 98672708, 45818522 ####[place] [address] [place] [address] Neutrophils/Leukocytes Auto (Bld) [Pure # fraction] 6.7 E9/L Normal 2.0-7.5 [facility] Comment on above: Order Comment: Order Added by Discern Expert. Performed By: #### 2 372134, 63775581, 36951951, 5240699, 6566836, 16010309, 59951467 ####[place] [address] [place] [address] BMPon 02-10-2023 Anion gap [Moles/Vol] 14 mmol/L Normal 6-16 [facility] Comment on above: Performed By: #### 2 637594, 44921450, 12930253, 9804808, 6695324, 45613492, 25403230 ####[place] [address] [place] [address] BUN/Creat Ratio 12 No Units Normal 10-20 [facility] Comment on above: Performed By: #### 2 811363, 24396188, 35652218, 1840499, 1161704, 57287387, 85349299 ####[facility] [address] [place] [address] Calcium [Mass/Vol] 9.7 mg/dL Normal 8.9-11.1 [facility] Comment on above: Performed By: #### 2 411776, 97351261, 35325519, 2353722, 5183810, 98973538, 80173757 ####[facility] [address] [place] [address] Chloride [Moles/Vol] 107 mmol/L Normal 101-111 [facility] Comment on above: Performed By: #### 2 505264, 50329334, 39752657, 9223074, 7469765, 50514880, 92826116 ####[facility] [address] [place] [address] CO2 [Moles/Vol] 25 mmol/L Normal 21-31 [facility] Comment on above: Performed By: #### 2 264148, 80405529, 72957764, 5613918, 3914862, 57063044, 16561627 ####[facility] [address] [place] [address] Creatinine [Mass/Vol] 1.4 mg/dL High 0.5-1.3 [facility] Comment on above: Performed By: #### 2 288873, 72194612, 07124544, 4587957, 2021257, 72526246, 29399530 ####[facility] [address] [place] [address] Glucose [Mass/Vol] 84 mg/dL Normal 55-199 [facility] Comment on above: Performed By: #### 2 497466, 90094231, 18768945, 7187116, 5289021, 91527108, 29260266 ####[facility] [address] [place] [address] Potassium [Moles/Vol] 4.8 mmol/L Normal 3.5-5.3 [facility] Comment on above: Performed By: #### 2 081547, 57496296, 94113644, 0723910, 6448370, 23587827, 01175628 ####[facility] [address] [place] [address] Sodium [Moles/Vol] 141 mmol/L Normal 135-145 [facility] Comment on above: Performed By: #### 2 222180, 11378436, 24175086, 1587185, 1188582, 81863950, 80116249 ####[facility] [address] [place] [address] Urea nitrogen [Mass/Vol] 17 mg/dL Normal 5-21 [facility] Comment on above: Performed By: #### 2 778167, 39799116, 23692465, 3096876, 9746544, 60974414, 37438697 ####[facility] [address] [place] [address] BNPon 02-10-2023 Natriuretic peptide B (Bld) [Mass/Vol] 39 pg/mL Normal 5-80 [facility] Comment on above: Performed By: #### 2 741421, 95411648, 05051373, 0777550, 4623188, 68184484, 77038139 ####[facility] [address] [place] [address] CBC w/ Auto Diffon Erythrocyte distribution width (RBC) [Ratio] 14.4 % High 10.9-14.2 [facility] Comment on above: Performed By: #### 2 518750, 03606424, 86808402, 1776116, 5474866, 79065531, 49103412 ####[facility] [address] [place] [address] Hematocrit (Bld) [Volume fraction] 50.0 % High 34.0-46.0 [facility] Comment on above: Performed By: #### 2 250162, 87243042, 42900956, 0014481, 7348821, 70068340, 46674415 ####[facility] [address] [place] [address] Hemoglobin (Bld) [Mass/Vol] 16.8 g/dL High 12.0-16.0 [facility] Comment on above: Performed By: #### 2 120431, 48121960, 68070258, 3628478, 0582421, 75171408, 56107591 ####[facility] [address] [place], [place] [address] MCH (RBC) [Entitic mass] 30.1 pg Normal 27.0-34.0 [facility] Comment on above: Performed By: #### 2 799015, 20217314, 88492793, 6010410, 8537616, 76086316, 66169862 ####[address] [address] MCHC (RBC) [Mass/Vol] 33.7 g/dL Normal 31.4-36.0 [facility] Comment on above: Performed By: #### 2 212723, 43496942, 14811764, 1648677, 7010089, 33229183, 31840290 ####[address] [address] MCV (RBC) [Entitic vol] 89.4 fL Normal 80.0-100.0 [facility] Comment on above: Performed By: #### 2 537023, 17675382, 77954603, 7994686, 8543322, 31113234, 83973621 ####[address] [address] Platelet mean volume (Bld) [Entitic vol] 8.0 fL Normal 6.4-10.8 [facility] Comment on above: Performed By: #### 2 040226, 76686566, 63251695, 1240092, 1948895, 16794061, 34551591 ####[address] [address] Platelets (Bld) [#/Vol] 202.0 E9/L Normal 150.0-500. 0 [facility] Comment on above: Performed By: #### 2 061088, 27993590, 06230606, 1609440, 3264249, 90987840, 78510159 ####[facility] [address] [place] [address] RBC (Bld) [#/Vol] 5.6 E12/L Normal 4.3-5.9 [facility] Comment on above: Performed By: #### 2 843417, 98153908, 07909311, 9395186, 1312545, 03475851, 79974280 ####[facility] [address] [place] [address] WBC corrected for nucl RBC Auto (Bld) [#/Vol] 9.4 E9/L Normal 4.0-11.0 [facility] Comment on above: Performed By: #### 2 902572, 62195744, 41022284, 0755823, 9934816, 51375784, 23030607 ####[facility] [address] [place] [address] CHEMISTRYOrdered By: SYSTEM SYSTEM on 02-10-2023 Anion [...] 39 pg/mL Normal 5 - 80 pg/mL [facility] COAGULATIONOrdered By: Veronica Guidry on 02-10-2023 [...] Consent for Treatmenton 01-19 Consent for Treatment [id number] Normal [facility] Discharge Instructionson Discharge Instructions [id number] F Normal [facility] ED Clinical Summaryon 2022 ED Clinical Summary (Inserted Image. Neelam ble to display) [place] [id number] ED Clinical Summary Person Information Name: DEYSI HERNANDEZ Trav/[facility] Age: 62 Years : 1960 Sex: Female Language: Sri Lankan PCP: SHAIKH THOMPSON MD Marital Status: Visit [...] 02/10/2023 17:12:09 02/10/2023 17:12:09 ADDRESS: [address] [facility] [id number] PHYS DOC NOTES: MEDICAL INFORMATION: Prescriptions Given: New Medications [id number], [address], [place] [id number], [phone] cefdinir (cefdinir 300 mg Cap) 1 Capsules [...] EDUCATION INFORMATION: Instructions: Urinary Tract Infection, Adult, Ugyl-fl-Kldo; Acute Bronchitis, Adult Follow up: With: Address: When: SHAIKH DONNA [address] [place], [place] [phone] [employer] (1) In 3 days 02/13/2023 Comments: Follow-up with your primary care provider in 3 to 5 days. If symptoms worsen, do not improve, or new symptoms arise please report back to emergency department for further evaluation. DIAGNOSIS: Bronchitis; UTI (urinary tract infection) Normal [facility] ED Note-Nursingon 02-10-2023 ED Note-Nursing EKG late due to vanessa ent being in the bathroom when called. Normal [facility] ED Note-Physicianon 02-11-20 ED Note-Physician Basic [...] (more content not included)... Normal [facility] Comment on above: Result Comment: Elec [...] these instructions at home: Medicines ? Take jpem-jmp-dzglxzk and prescription medicines only as told by [...] provider. Document Revised: 09/16/2020 Document Reviewed: 09/16/2020 [employer] Patient Education ? 2022 [employer]. Pulmonary Medicine Acute Bronchitis, Adult Acute bronchitis [...] (more content not included)... Normal [facility] ED Patient Summaryon 023 ED Patient Summary (Inserted Image. Neelam ble to display) [address] [address] Patient Discharge Instructions Person Information Name: DEYSI HERNANDEZ Age: 62 Years Arrival Date: 02/10/2023 14:37:39 Discharge Diagnosis: Bronchitis; UTI (urinary tract infection) Primary Care Physician: SHAIKH THOMPSON MD Provider Information Primary Provider: Gabby De Oliveira M.D. Advanced Vp Integrity:None The exam and treatment you received in the Emergency Department were for an urgent problem and are not intended as complete care. It is important that you follow up with a doctor, nurse practitioner, or physician?s video library assistant for ongoing care. If your symptoms [...] With: Address: When: SHAIKH DONNA [address] [place], [place] [phone] Business (1) In 3 days 02/13/2023 Comments: [...] Patient Education Materials: Urinary Tract Infection, Adult, Sjud-xq-Neop; Acute Bronchitis, Adult A MESSAGE TO ALL PATIENTS REGARDING OPIOIDS PRESCRIPTION OPIOIDS: WHAT YOU NEED TO KNOW Prescription opioids can be used to help relieve xmkmwees-yr-jtvpig pain and are often prescribed following a [...] (more content not included)... Normal [facility] Family Medicine Office/Clini c Noteon 02-10-2023 [...] to the emergency department at [facility]. She was offered EMS transfer but [...] (more content not included)... Normal [facility] Comment on above: Result Comment: Elec [...] 3 Influenzae A Ag Negative Normal Negative [facility] Comment on above: Performed By: #### 1 [id number], [id number] ####[facility] [address] [place] [address] Influenzae B Ag Negative Normal Negative [facility] Comment on above: Result Comment: Test sensitivity and specificity vary for age group, specimen type, antigen types, and prevalence of disease. Test results must be evaluated in conjunction with other clinical data available to the physician. Individuals who received nasally administered Influenza A vaccine may have positive test results up to 3 days after vaccination. Performed By: #### 1 7757401, [id number] ####[facility] [address] [place] [address] MICRO OTHER TESTSOrdered By: Trudy Guidry on 02-10-2023 Influenzae A Ag Negative (02/10/23 3:25 PM) Normal Negative [facility] Influenzae B Ag Negative 1 (02/10/23 3:25 PM) Normal Negative [facility] Comment on above: Interpretive Data: T [...] NEG Ctl Pass (02/10/23 3:25 PM) Normal [facility] Rapid COV Int POS Ctl Pass (02/10/23 3:25 PM) Normal [facility] SARS-CoV+SARS-CoV-2 (COVID-19) Ag IA.rapid Ql (Resp) Not Detected 6 (02/10/23 3:25 PM) Normal Not Detected [facility] Comment on above: Interpretive Data: T he [employer] Veritor System for Rapid Detection of SARS-CoV-2 [...] [Time] 29.2 second(s) Normal 25.1-36.5 [facility] Comment on above: Result Comment: Para [...] - 109.0 sec. Performed By: #### 2 483158, 29946915, 35220213, 8424499, 6816407, 59143803, 44736357 ####[facility] [place] [address] INR Coag (PPP) [Relative time] 1.0 {INR} Invalid Interpretation Code [facility] Comment on above: Result Comment: INR results are specifically intended to assess patients stabilized on long-term Anticoagulation therapy suggested INR?s ?Less Intensive Anticoagulation? 2.0 ? 3.0 Conventional Range 3.0 ? 4.5 Performed By: #### 2 239059, 23752605, 48014955, 2529546, 0650595, 45847065, 36949577 ####[facility] [address] [place] [address] PT Coag (PPP) [Time] 11.6 second(s) Normal 9.4-12.5 [facility] Comment on above: Result Comment: 15 [...] no normal ranges. Performed By: #### 2 056411, 29400318, 43047531, 3702259, 3270171, 20398219, 51677856 ####[place] [address] [place] [address] Rapid COVID Antigen ([facility])on 02-10-2023 Rapid COV Int NEG Ctl Pass Normal [facility] Comment on above: Performed By: #### 1 4645789, [id number] ####[place] [address] [place] [address] Rapid COV Int POS Ctl Pass Normal [facility] Comment on above: Performed By: #### 1 5872552, [id number] ####[place] [address] [place] [address] SARS-CoV+SARS-CoV-2 (COVID-19) Ag IA.rapid Ql (Resp) Not detected Normal Not Detected [facility] Comment on above: Result Comment: The [email or web address] Ver[employer]? System for Rapid Detection of SARS-CoV-2 [...] or revoked sooner. Performed By: #### 1 [id number], [id number] ####[facility] [address] [place] [address] Troponin 0 Hr.on 02-10-2023 Troponin 5.80 pg/mL Low 10.10-27.1 0 [facility] Comment on above: Result Comment: The 95% CI (Confidence Interval) PPV (Positive Predictive Value) for myocardial infarction in females is 38 pg/mL, in males 51 pg/mL. The results should be used in conjunction with clinical conditions of myocardial infarction. (Access High Sensitivity Troponin I Instructions For Use, Kavita Vernal, September 2017) Performed By: #### 2 [id number], [id number], [id number], [id number], [id number], [id number], [id number] ####[facility] [address] [place] [address] XR Chest Single Viewon 02-10 XR Chest [...] na DAP = na Normal [facility] eGFRon 02-10-2023 eGFR 43 mL/min/1.73 m2 Low >=59 [facility] Comment on above: Order Comment: Order added by Discern Expert. Performed By: #### 2 [id number], [id number], [id number], [id number], [id number], [id number], [id number] ####[facility] [address] [place] [address] Lizbet 10-26-2022 VERONICAN Telephone ([facility]) ----- DEYSI HERNANDEZ ([id number]) 1960 F Date Time Provider Department 10/26/22 DEBRA FISHMAN [facility] During your visit today, we [...] question. I will also send her a [employer] message encouraging communicate via [employer] if needed. Debra Fishman MD Staff, Department of Kidney Medicine 10/26/22 5:49 PM Allergies As of Date: 10/26/2022 Noted Allergy Reaction CODEINE 09/07/2014 7 - Swelling Date Reviewed: 10/09/2022 Reviewed by: Rosie Harris DO - Fully Assessed Reason for Visit: Patient Question [4147] Prescriptions as of 10/26/2022 - lisinopril (ZESTRIL) [...] Status:Closed by DEBRA FISHMAN on 10/26/22 Normal [facility] CNPNon 10-25-2022 CNPN Telephone (CALIMM[place]o) ----- DEYSI HERNANDEZ ([id number]) 1960 F Date Time Provider Department 10/25/22 DEBRA FISHMAN During your visit today, we recorded the following information about you: Linn Solis Ma 10/25/2022 12:36 PM Signed Patient called the office very upset because today at here appointment with Kidney Medicine she was seen by another provider and it wasn't her kidney doctor. She would like Dr. Fishman call her back at [phone] because she has lots of questions that [...] Fully Assessed Reason for Visit: Patient Question [3632] Prescriptions as of 10/25/2022 - lisinopril (ZESTRIL) [...] Status:Closed by LINN SOLIS MA on 10/25/22 [facility] Urineon 10-18-2022 Bacteria identified Cx Nom [...] Locations R1: This test was performed at: [facility], [address] [place] [address], [phone] , , Normal [facility] Comment on above: Performed By: #### 2 [id number] ####[facility] [address] [place] [address] Family Medicine Office/Clini c Noteon 10-15-2022 Family [...] with voice recognition software. Occasional wrong-word or ?dnaxd-i-xnna? substitutions may have occurred due to the inherent limitations of voice recognition software. 62-year-old female with history of stage III chronic kidney disease, hyperlipidemia, hypertension, current smoker presents today to [facility] care with chief complaint of possible urinary tract infection. She does note that she has been seen urology in the past in regards to stress incontinence. She also notes that she sees nephrology out of [facility]. Patient states she sees them every 6 months for history of her chronic kidney disease in which she states that her right kidney does a lot of work in her left kidney does not function. Patient states a history of urosepsis several years ago and she does not really recall 5 of her days of hospitalization or transfer from [facility] to [facility]. Patient states that on of last week [...] day(s), # 21 cap(s), Refills(s) 0, Pharmacy: [id number], 163, cm, 10/15/22 17:40:00 EDT, Height/Length [...] day(s), # 21 cap(s), Refills(s) 0, Pharmacy: [id number], 163, cm, 10/15/22 17:40:00 EDT, Height/Length Dosing, 72.3, kg, 10/15/22 17:40:00 EDT, Weight Dosing 3. Smoker (F17.200: Nicotine dependence, unspecified (more content not included)... Normal [facility] Comment on above: Result Comment: Elec [...] numbers. This can be done either in [place] (U.S.) or metric measurements. Note that charts and online BMI calculators are available to help you find your BMI quickly and easily without having to do these calculations yourself. To calculate your BMI in [place] ([place] measurements: 1. Measure your weight in [...] for Disease Control and Prevention: www.cdc.gov ? [place] Heart Association: www.heart.org ? National Heart, Lung, and Blood [place]: www.nhlbi.nih.gov Summary ? Body mass index (BMI) is a number that is calculated from a person's weight and height. ? BMI may help estimate how much of a person's weight is composed of fat. BMI can help identify those who may be at higher risk for certain medical problems. ? BMI can be measured using [place]an measurements or metric measurements. ? BMI charts are used to identify whether you are underweight, normal weight, overweight, or obese. This information is not intended to replace advice given to you by your health care provider. Make sure you discuss any questions you have with your health care provider. Document Revised: 10/28/2019 Document Reviewed: 09/04/2019 [employer] Patient Education ? 2022 [employer]. Obstetrics and Gynecology Urinary Tract Infection, Adult [...] condition if: (more content not included)... Normal [facility] 10-11-2022 CNP Telephone (WIQ) ----- DEYSI HERNANDEZ ([id number]) 1960 F Date Time Provider Department 10/11/22 CATHIE MOORE During your visit today, we recorded the following information about you: [facility] 10/11/2022 12:57 PM Signed Smoking Cessation Navigation Outcome of contact: Left Message Comments: A voicemail has been left for this patient regarding Tobacco Cessation support options. If this patient has any further questions they can email us at or call us at [phone]. [facility] Service Line Coordinator/Smoking Cessation Navigator: [facility] Allergies As of Date: 10/11/2022 Noted Allergy [...] Status:Closed by CATHIE MOORE on 10/11/22 Normal [facility] CNOVon 10-09-2022 CNOV Office Visit (ELPIDIO ) ----- DEYSI HERNANDEZ ([id number]) 1960 F Date Time Provider Department 10/09/22 2:00 PM GURMEET OJEDA During your visit today, we recorded the following information about you: Temperature Pulse Blood pressure Weight 97.5 degrees 60/minute 91/60 71.3 kg Height 1.575 m Rosie Harris DO 10/09/2022 5:08 PM Signed [facility] SERVICE [...] CKD, ESRD, hearing loss. 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 Normal [facility] URINALYSIS, REFLEX MICROSCOP ICon 10-09-2022 Bacteria LM.HPF (Urine sed) [#/Area] Few Abnormal None Seen [facility] Comment on above: Order Comment: Speci men Type: URINE SPECIMEN Ordering Facility: [facility] Address: [address] [place] [address] Performed By: #### L [id number] #### [facility] CLIA [id number] [address] [place] [address] [place] Bilirubin Ql (U) Negative Normal Negative [facility] Comment on above: Order Comment: Speci men Type: URINE SPECIMEN Ordering Facility: [facility] Address: [address] [place] [address] Performed By: #### L [id number] #### [facility] CLIA [id number] [address] [place] [address] [place] Clarity (Unsp spec) Cloudy Abnormal Clear [facility] Comment on above: Order Comment: Speci men Type: URINE SPECIMEN Ordering Facility: [facility] Address: [address] [place], [place] [address] Performed By: #### L [id number] #### [facility] CLIA [id number] [address] [place] [address] [place] Color (U) Light Yellow Normal Yellow [facility] Comment on above: Order Comment: Speci men Type: URINE SPECIMEN Ordering Facility: [facility] Address: [address] [place] [address] Performed By: #### L [id number] #### [facility] CLIA [id number] [address] [place] [address] [place] Epithelial cells LM.HPF (Urine sed) [#/Area] Few Normal [facility] Comment on above: Order Comment: Speci men Type: URINE SPECIMEN Ordering Facility: [facility] Address: [address] [place] [address] Performed By: #### L [id number] #### [facility] CLIA [id number] [address] [place] [address] [place] Glucose Test strip (U) [Mass/Vol] Negative Normal Trace, Negative [facility] Comment on above: Order Comment: Speci men Type: URINE SPECIMEN Ordering Facility: [facility] Address: [address] Performed By: #### L [id number] #### [facility] CLIA [id number] [address] [place] [address] [place] Hemoglobin Ql (U) Trace Normal Negative, Trace [facility] Comment on above: Order Comment: Speci men Type: URINE SPECIMEN Ordering Facility: [facility] Address: [address] Performed By: #### L [id number] #### [facility] CLIA [id number] [address] [place] [address] [place] Ketones Ql (U) Negative Normal Negative, Trace [facility] Comment on above: Order Comment: Speci men Type: URINE SPECIMEN Ordering Facility: [facility] Address: [address] Performed By: #### L [id number] #### [facility] CLIA [id number] [address] [place] [address] [place] Leukocyte esterase Test strip Ql (U) 250 Bonnie/uL Abnormal Negative, 25 Bonnie/uL [facility] Comment on above: Order Comment: Speci men Type: URINE SPECIMEN Ordering Facility: [facility] Address: [address] Performed By: #### L [id number] #### [facility] CLIA [id number] [address] [place] [address] [place] Nitrite Ql (U) 2+ Abnormal Negative [facility] Comment on above: Order Comment: Speci men Type: URINE SPECIMEN Ordering Facility: [facility] Address: [address] Performed By: #### L [id number] #### [facility] CLIA [id number] [address] [place] pH (U) 5.5 [pH] Normal 5.0-8.0 [facility] Comment on above: Order Comment: Speci men Type: URINE SPECIMEN Ordering Facility: [facility] Address: [address] [place] [address] Performed By: #### L [id number] #### [facility] CLIA [id number] [address] [place] [address] [place] Protein (U) [Mass/Vol] Negative Normal Trace , Negative [facility] Comment on above: Order Comment: Speci men Type: URINE SPECIMEN Ordering Facility: [facility] Address: [address] [place], [place] [address] Performed By: #### L [id number] #### [facility] CLIA [id number] [address] [place] [address] [place] RBC LM.HPF (Urine sed) [#/Area] 0-3 /HPF Normal 0-3 /HPF [facility] Comment on above: Order Comment: Speci men Type: URINE SPECIMEN Ordering Facility: [facility] Address: [address] [place] [address] Performed By: #### L [id number] #### [facility] CLIA [id number] [address] [place] [address] [place] Specific gravity (U) [Rel density] 1.015 Normal 1.005-1.03 0 [facility] Comment on above: Order Comment: Speci men Type: URINE SPECIMEN Ordering Facility: [facility] Address: [address] [place], [place] [address] Performed By: #### L [id number] #### [facility] CLIA [id number] [address] [place] [address] [place] Urobilinogen Ql (U) Negative Normal Negative [facility] Comment on above: Order Comment: Speci men Type: URINE SPECIMEN Ordering Facility: [facility] Address: [address] [place], [place] [address] Performed By: #### L [id number] #### [facility] CLIA [id number] [facility] [address] WBC LM.HPF (Urine sed) [#/Area] /[HPF] Abnormal 0-5 /HPF [facility] Comment on above: Order Comment: Speci men Type: URINE SPECIMEN Ordering Facility: [facility] Address: [address] Performed By: #### L [id number] #### [facility] CLIA [id number] [address] Bacteria LM.HPF (Urine sed) [#/Area] Few Abnormal None Seen /HPF [facility] Bilirubin Ql (U) Negative Negative [facility] Clarity (Unsp spec) Cloudy Abnormal Clear [facility] Color (U) Light Yellow Yellow [facility] Epithelial cells LM.HPF (Urine sed) [#/Area] Few [facility] Glucose Test strip (U) [Mass/Vol] Negative Trace, Negative [facility] Hemoglobin Ql (U) Trace Negative, Trace [facility] Ketones Ql (U) Negative Negative, Trace [facility] Leukocyte esterase Test strip Ql (U) 250 Bonnie/uL Abnormal Negative, 25 Bonnie/uL [facility] Nitrite Ql (U) 2+ Abnormal Negative [facility] pH (U) 5.5 [pH] 5.0 - 8.0 [facility] Protein (U) [Mass/Vol] Negative Trace , Negative [facility] RBC LM.HPF (Urine sed) [#/Area] 0-3 /HPF 0-3 /HPF [facility] Specific gravity (U) [Rel density] 1.015 1.005 - 1.030 [facility] Urobilinogen Ql (U) Negative Negative [facility] WBC LM.HPF (Urine sed) [#/Area] /[HPF] Abnormal 0-5 /HPF [facility] 25(OH)D3 [facility] 25-hydroxyvitamin D3 [Mass/Vol] 34.5 ng/mL Normal 31.0-80.0 [facility] Comment on above: Order Comment: Speci men Type: BLOOD SPECIMEN Ordering Facility: [facility] Address: [address] [place] [address] Result Comment: Clas sification of 25 [place] Vitamin D status: Deficiency/Insufficiency: < or = 30 ng/ml. Sufficiency/Optimal Levels: 31-80 ng/mL Toxicity: > 100 ng/mL. Test performed by chemiluminescent immunoassay. Performed By: #### 1 989-3 #### [facility] CLIA [id number] [address] [place] [address] IMMUNOFIXATION SCREEN, SERUM on 08-23-2022 MPA RESULT No M protein is identified. Normal No M protein is identified . [facility] Comment on above: Order Comment: Speci men Type: BLOOD SPECIMEN Ordering Facility: [facility] Address: [address] [place] [address] Performed By: #### I FESC #### [facility] CLIA [id number] [address] [place] [address] OF [facility] STAFF REVIEW (MPA) Reviewed by Cortes Alfredo MD, Ph.D ([id number]) [facility] Comment on above: Order Comment: Speci men Type: BLOOD SPECIMEN Ordering Facility: [facility] Address: [address] [place] [address] Performed By: #### I FESC #### [facility] CLIA [id number] [address] [place] [address] [place] IMMUNOGLOBULINS GAMon 2022 IgA [Mass/Vol] 218 mg/dL Normal 70-400 [facility] Comment on above: Order Comment: Speci men Type: BLOOD SPECIMEN Ordering Facility: [facility] Address: [address] [place] [address] Performed By: #### S ERIMM #### [facility] CLIA [id number] [address] [place] IgG [Mass/Vol] 775 mg/dL Normal 700-1600 [facility] Comment on above: Order Comment: Speci men Type: BLOOD SPECIMEN Ordering Facility: [facility] Address: [address] [place] [address] Performed By: #### S ERIMM #### [facility] CLIA [id number] [address] [place] [address] [place] IgM [Mass/Vol] 129 mg/dL Normal 40-230 [facility] Comment on above: Order Comment: Speci men Type: BLOOD SPECIMEN Ordering Facility: [facility] Address: [address] [place] [address] Performed By: #### S ERIMM #### [facility] CLIA [id number] [address] [place] [address] [place] KAPPA/THAO,FREE,SERon 2022 Immunoglobulin light chains.kappa.free (S) [Mass/Vol] 26.1 mg/L High 3.3-19.4 [facility] Comment on above: Order Comment: [facility]: BLOOD [facility]CIM[facility] Address: [address] [place] [address] Result Comment: Rare ly, increased serum free light chains levels may not be detected or accurately quantified due to prozone phenomenon or in high viscosity samples using this immunoturbidimetric assay. Correlation with other laboratory results and clinical findings is recommended. The [place] Free Light Chain was performed using the Binding Site Optilite immunoturbidimetric method. Result obtained with different assay methods or kits cannot be used interchangeably. Performed By: #### K LFRS #### [facility] CLIA [id number] [address] [place] [address] [place] Immunoglobulin light chains.kappa/Immunoglo bulin light chains.lambda (S) [Mass ratio] 1.01 Normal 0.26-1.65 [facility] Comment on above: Order Comment: [facility] Type: BLOOD SPECIMEN [facility] Address: [address] [place] [address] Performed By: #### K LFRS #### [facility] CLIA [id number] [address] [place] [address] [place] Immunoglobulin light chains.lambda.free [Mass/Vol] 25.9 mg/L Normal 5.7-26.3 [facility] Comment on above: Order Comment: Speci men Type: BLOOD SPECIMEN Ordering Facility: [facility] Address: [address] [place] [address] Result Comment: Rare ly, increased serum free [...] interchangeably. Performed By: #### K LFRS #### [facility] CLIA [id number] [address] [place] [address] [place] Renal function 2000 panel 08-23-2022 Albumin [Mass/Vol] 4.3 g/dL Normal 3.9-4.9 [facility] Comment on above: Order Comment: Marioi men Type: BLOOD SPECIMEN Ordering Facility: [facility] Address: [address] [place] [address] Performed By: #### 2 4362-6 #### [facility] CLIA [id number] [address] [place] [address] [place] Anion gap [Moles/Vol] 9 mmol/L Normal 9-18 [facility] Comment on above: Order Comment: Speci men Type: BLOOD SPECIMEN Ordering Facility: [facility] Address: [address] [place] [address] Performed By: #### 2 4362-6 #### [facility] IA [id number] [address] [place] [address] [place] Calcium [Mass/Vol] 9.9 mg/dL Normal 8.5-10.2 [facility] Comment on above: Order Comment: Speci men Type: BLOOD SPECIMEN Ordering Facility: [facility] Address: [address] Performed By: #### 2 4362-6 #### [facility] CLIA [id number] [address] [place] [address] [place] Chloride [Moles/Vol] 105 mmol/L Normal 97-105 [facility] Comment on above: Order Comment: Speci men Type: BLOOD SPECIMEN Ordering Facility: [facility] Address: [address] [place] [address] Performed By: #### 2 4362-6 #### [facility] CLIA [id number] [address] [place] [address] [place] CO2 [Moles/Vol] 25 mmol/L Normal 22-30 [facility] Comment on above: Order Comment: Speci men Type: BLOOD SPECIMEN Ordering Facility: [facility] Address: [address] [place] [address] Performed By: #### 2 4362-6 #### [facility] IA [id number] [address] [place] [address] [place] Creatinine [Mass/Vol] 1.42 mg/dL High 0.58-0.96 [facility] Comment on above: Order Comment: Speci men Type: BLOOD SPECIMEN Ordering Facility: [facility] Address: [address] [place] [address] Performed By: #### 2 4362-6 #### [facility] IA [id number] [address] OF [place] ESTIMATED GLOMERULAR FILTRATION RATE 42 mL/min/1.73m??? Low >=60 [facility] Comment on above: Order Comment: Speci men Type: BLOOD SPECIMEN Ordering Facility: [facility] Address: [address] [place], [place] [address] Result Comment: Jody mated Glomerular Filtration Rate [...] GFR. Performed By: #### 2 4362-6 #### [facility] CLIA [id number] [address] [place] [address] [place] Glucose [Mass/Vol] 70 mg/dL Low 74-99 [facility] Comment on above: Order Comment: Carmen juarez Type: BLOOD SPECIMEN Ordering Facility: [facility] Address: [address] [place] [place] [address] Result Comment: The [place] Diabetes Association (ADA) provides guidance for cutoff [...] Standards of Medical Care in Diabetes 2016, [place] Diabetes Association. Diabetes Care. 2016.39(Suppl 1). Performed By: #### 2 4362-6 #### [facility] CLIA [id number] [address] [place] [address] [place] Phosphate [Mass/Vol] 2.5 mg/dL Low 2.7-4.8 [facility] Comment on above: Order Comment: Carmen juarez Type: BLOOD SPECIMEN Ordering Facility: [facility] Address: [address] [place] [place] [address] Performed By: #### 2 4362-6 #### [facility] CLIA [id number] [address] [place] [address] [place] Potassium [Moles/Vol] 4.8 mmol/L Normal 3.7-5.1 [facility] Comment on above: Order Comment: Carmen juarez Type: BLOOD SPECIMEN Ordering Facility: [facility] Address: [address] [place] [address] Performed By: #### 2 4362-6 #### [facility] CLIA [id number] [address] [place], [place] [id number] [place] [address] STATES OF [facility] Sodium [Moles/Vol] 139 mmol/L Normal 136-144 [facility] Comment on above: Order Comment: Speci men Type: BLOOD SPECIMEN Ordering Facility: [facility] Address: [address] [place] [address] Performed By: #### 2 4362-6 #### [facility] CLIA [id number] [address] [place], [place] [id number] [place] [address] STATES OF [facility] Urea nitrogen [Mass/Vol] 18 mg/dL Normal 7-21 [facility] Comment on above: Order Comment: Speci men Type: BLOOD SPECIMEN Ordering Facility: [facility] Address: [address] [place] [address] Performed By: #### 2 4362-6 #### [facility] CLIA [id number] [address] [place] [address] [place] US KIDNEY/BLADDERon 08-24-19 23 US KIDNEY/BLADDER * * *Final Report* * * DATE OF EXAM: Aug 23 2022 2:15PM [facility] 1055 - KIDNEY/BLADDER / PROCEDURE [...] residual bladder volume 4. Right renal cyst Patternator: ERICK Transcribe Date/Time: Aug 28 2022 8:25A Dictated by : ALEAH QUINN MD This examination was interpreted and the report reviewed and electronically signed by: ALEAH QUINN MD on Aug 28 2022 8:28AM EST [id number] [facility] CNOVon 08-09-2022 OV Office Visit (KIDMMN ) ----- DEYSI HERNANDEZ ([id number]) 1960 F Date Time Provider Department 08/09/22 3:00 PM GURMEET OJEDA During your visit today, we recorded the following information about you: Temperature Pulse Blood pressure Weight 97.7 degrees 65/minute 98/64 72.5 kg Height 1.575 m Debra Fishman MD 08/09/2022 7:02 PM Signed [facility] SERVICE DATE: 08/09/2022 SERVICE TIME: 3:35 PM REASON FOR CONSULT: I am asked to see this patient in consultation for my opinion regarding CKD. My recommendations will be communicated by way of shared medical record, fax, or mail. REQUESTING PHYSICIAN: Shaikh Thompson MD PRIMARY CARE PHYSICIAN: Shaikh Donna MD CHIEF COMPLAINT: CKD HPI: Ms. Heranndez is a 62 year old female who [...] CKD, ESRD, hearing loss. 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, currently 0.75 pack per day but [...] Normal mo (more content not included)... Normal [facility] URINALYSIS, REFLEX MICROSCOP ICon 08-09-2022 Bilirubin Ql (U) Negative Normal Negative Jing bazzi [facility] Comment on above: Order Comment: Speci men Type: URINE SPECIMEN Ordering Facility: [facility] Address: [address] [place] [id number] Performed By: #### L [id number] #### [facility] CLIA [id number] [address] [facility] DESK [id number] [place] [address] [place] Clarity (Unsp spec) Clear Normal Clear [facility] Comment on above: Order Comment: Speci men Type: URINE SPECIMEN Ordering Facility: [facility] Address: [address] [place] [address] Performed By: #### L [id number] #### [facility] CLIA [id number] [address] [place] [address] [place] Color (U) Light Yellow Normal Yellow [facility] Comment on above: Order Comment: Speci men Type: URINE SPECIMEN Ordering Facility: [facility] Address: [address] Performed By: #### L [id number] #### [facility] CLIA [id number] [address] [place] [address] [place] Glucose Test strip (U) [Mass/Vol] Negative Normal Trace, Negative [facility] Comment on above: Order Comment: Speci men Type: URINE SPECIMEN Ordering Facility: [facility] Address: [address] Performed By: #### L [id number] #### [facility] CLIA [id number] [address] [place] [address] [place] Hemoglobin Ql (U) Negative Normal Negative, Trace [facility] Comment on above: Order Comment: Speci men Type: URINE SPECIMEN Ordering Facility: [facility] Address: [address] [place] [address] Performed By: #### L [id number] #### [facility] CLIA [id number] [address] [place] [id number] [place] Ketones Ql (U) Negative Normal Negative, Trace [facility] Comment on above: Order Comment: Speci men Type: URINE SPECIMEN Ordering Facility: [facility] Address: [address] [place] [address] Performed By: #### L [id number] #### [facility] CLIA [id number] [address] [place] [address] [place] Leukocyte esterase Test strip Ql (U) 75 Bonnie/uL Abnormal Negative, 25 Bonnie/uL [facility] Comment on above: Order Comment: Speci men Type: URINE SPECIMEN Ordering Facility: [facility] Address: [address] [place] [address] Performed By: #### L [id number] #### [facility] CLIA [id number] [address] [place] [address] [place] Nitrite Ql (U) Negative Normal Negative [facility] Comment on above: Order Comment: Speci men Type: URINE SPECIMEN Ordering Facility: [facility] Address: [address] [place] [address] Performed By: #### L [id number] #### [facility] CLIA [id number] [address] [place] [address] [place] pH (U) 6.0 [pH] Normal 5.0-8.0 [facility] Comment on above: Order Comment: Speci men Type: URINE SPECIMEN Ordering Facility: [facility] Address: [address] [place], [place] [address] Performed By: #### L [id number] #### [facility] CLIA [id number] [address] [place] [address] [place] Protein (U) [Mass/Vol] Negative Normal Trace , Negative [facility] Comment on above: Order Comment: Speci men Type: URINE SPECIMEN Ordering Facility: [facility] Address: [address] [place], [place] [address] Performed By: #### L [id number] #### [facility] CLIA [id number] [address] [place] [address] [place] Specific gravity (U) [Rel density] 1.009 Normal 1.005-1.03 0 [facility] Comment on above: Order Comment: Speci men Type: URINE SPECIMEN Ordering Facility: [facility] Address: [address] [place], [place] [address] Performed By: #### L [id number] #### [facility] CLIA [id number] [address] [place] Urobilinogen Ql (U) Negative Normal Negative [facility] Comment on above: Order Comment: Speci men Type: URINE SPECIMEN Ordering Facility: [facility] Address: [address] [place] [address] Performed By: #### L [id number] #### [facility] CLIA [id number] [address] [place] Bilirubin Ql (U) Negative Negative [facility] Clarity (Unsp spec) Clear Clear [facility] Color (U) Light Yellow Yellow [facility] Glucose Test strip (U) [Mass/Vol] Negative Trace, Negative [facility] Hemoglobin Ql (U) Negative Negative, Trace [facility] Ketones Ql (U) Negative Negative, Trace [facility] Leukocyte esterase Test strip Ql (U) 75 Bonnie/uL Abnormal Negative, 25 Bonnie/uL [facility] Nitrite Ql (U) Negative Negative [facility] pH (U) 6.0 [pH] 5.0 - 8.0 [facility] Protein (U) [Mass/Vol] Negative Trace , Negative [facility] Specific gravity (U) [Rel density] 1.009 1.005 - 1.030 [facility] Urobilinogen Ql (U) Negative Negative [facility] LIPID PROFILEon 06-12-2022 CHOL-HDL RATIO NORM SEE BELOW Normal [facility] Comment on above: Result Comment: 3.3 - 4.4 LOW RISK 4.4 - 7.1 AVERAGE RISK 7.1 - 11.0 MODERATE RISK >11.0 HIGH RISK Performed By: #### L DAWIT BMP #### [facility] [address] [place] [address] [address] Moreno Amato Cholesterol [Mass/Vol] 178 mg/dL Normal <=200 Th [facility] Comment on above: Performed By: #### L IPID, BMP #### [facility] [address] [place] [address] [address] Moreno Amato Cholesterol in HDL [Mass/Vol] 39 mg/dL Critically low 40-60 [facility] Comment on above: Performed By: #### L IPID, BMP #### [facility] [address] [place] [address] Dr. Moreno Amato Cholesterol in LDL [Mass/Vol] 92.0 mg/dL Normal [facility] Comment on above: Performed By: #### L IPID, BMP #### [facility] [address] [place] [address] Dr. Moreno Amato Cholesterol.total/Chol esterol in HDL [Mass ratio] 4.6 {ratio} Normal [facility] Comment on above: Performed By: #### L IPID, BMP #### [facility] [address] [place] [address] Dr. Moreno Amato HDL NORMAL > or = 60 mg/dl - LO W CARDIOVASCULAR RISK <40 mg/dl - HIGH CARDIOVASCULAR RISK Normal [facility] Comment on above: Performed By: #### L IPID, BMP #### [facility] [address] [place] [address] Dr. Moreno Amato LDL CALC NORMAL SEE BELOW Normal [facility] Comment on above: Result Comment: <100 mg/dl OPTIMAL 100 - 129 mg/dl NEAR OR ABOVE OPTIMAL 130 - 159 mg/dl BORDERLINE HIGH 160 - 189 mg/dl HIGH >190 mg/dl VERY HIGH Performed By: #### L IPID, BMP #### [facility] [address] [place] [address] Dr. Moreno Amato Triglyceride [Mass/Vol] 235 mg/dL Critically high <=150 [facility] Comment on above: Performed By: #### L IPID, BMP #### [facility] [address] [place] [address] Dr. Moreno Amato VLDL CALC 47.0 mg/dL Normal [facility] Comment on above: Performed By: #### L IPID, BMP #### [facility] [address] [place] [address] Dr. Moreno Amato PROF CHEM 8 (BAS METB)on Anion gap [Moles/Vol] 10.7 mmol/L Normal [facility] Comment on above: Performed By: #### L IPID, BMP #### [facility] [address] [place] [address] [address] Moreno Amato Calcium [Mass/Vol] 9.6 mg/dL Normal 8.5-10.1 [facility] Comment on above: Performed By: #### L IPID, BMP #### [facility] [address] [place] [address] [address] Moreno Amato Chloride [Moles/Vol] 104 mmol/L Normal 98-107 [facility] Comment on above: Performed By: #### L IPID, BMP #### [facility] [address] [place] [address] [address] Moreno Amato CO2 [Moles/Vol] 31.6 mmol/L Normal 21.0-32.0 [facility] Comment on above: Performed By: #### L IPID, BMP #### [facility] [address] [place] [address] Dr. Moreno Amato Creatinine [Mass/Vol] 1.58 mg/dL Critically high 0.55-1.02 [facility] Comment on above: Performed By: #### L IPID, BMP #### [facility] [address] [place] [address] Dr. Moreno Amato EGFR-AF LATVIAN 40 mL/min/1.73m2 Critically low >=60 [facility] Comment on above: Performed By: #### L IPID, BMP #### [facility] [address] [place] [address] Dr. Moreno Amato EGFR-NON AF LATVIAN 33 mL/min/1.73m2 Critically low >=60 [facility] Comment on above: Performed By: #### L IPID, BMP #### [facility] [address] [place] [address] Dr. Moreno Amato Glucose [Mass/Vol] 79 mg/dL Normal 74-106 [facility] Comment on above: Performed By: #### L IPID, BMP #### [facility] [address] [place] [address] Dr. Moreno Amato Potassium [Moles/Vol] 4.3 mmol/L Normal 3.5-5.1 [facility] Comment on above: Performed By: #### L IPID, BMP #### [facility] [address] [place] [address] Dr. Moreno Amato Sodium [Moles/Vol] 142 mmol/L Normal 136-145 [facility] Comment on above: Performed By: #### L IPID, BMP #### [facility] [address] [place] [address] Dr. Moreno Amato Urea nitrogen [Mass/Vol] 21.0 mg/dL Critically high 7.0-18.0 [facility] Comment on above: Performed By: #### L IPID, BMP #### [facility] [address] [place] [address] Dr. Moreno Amato Urea nitrogen/Creatinine [Mass ratio] 13.3 mg/mg Normal [facility] Comment on above: Performed By: #### L IPID, BMP #### [facility] [address] [place] [address] Dr. Moreno Amato URINE T PROTEIN CREAT RATIOo n 06-12-2022 Protein (U) [Mass/Vol] 8.8 mg/dL Normal <=12.0 [facility] Comment on above: Performed By: #### A MY, CMP, LIPA #### [facility] [address] [place] [address] Dr. Moreno Amato UR PROT CREAT RAT 0.12 Normal [facility] Comment on above: Performed By: #### A MY, CMP, LIPA #### [facility] [address] [place] [address] Dr. Moreno Amato URINE CREAT 70.82 mg/dL Normal 20.00-300. 00 [facility] Comment on above: Performed By: #### A MY, CMP, LIPA #### [facility] [address] [place] [address] Dr. Moreno Amato HEMOGLOBINon 04-30-2022 Hemoglobin (Bld) [Mass/Vol] 15.3 g/dL Normal 12.0-16.0 [facility] Comment on above: Performed By: #### A MY, CMP, LIPA #### [facility] [address] [place] [address] [address] Moreno Amato LIPID PROFILEon 03-27-2022 CHOL-HDL RATIO NORM SEE BELOW Normal [facility] Comment on above: Result Comment: 3.3 - 4.4 LOW RISK 4.4 - 7.1 AVERAGE RISK 7.1 - 11.0 MODERATE RISK >11.0 HIGH RISK Performed By: #### A MY, CMP, LIPA #### [facility] [address] [place] [address] [address] Moreno Amato Cholesterol [Mass/Vol] 217 mg/dL Critically high <=200 [facility] Comment on above: Performed By: #### A MY, CMP, LIPA #### [facility] [address] [place] [address] [address] Moreno Amato Cholesterol in HDL [Mass/Vol] 42 mg/dL Normal 40-60 [facility] Comment on above: Performed By: #### A MY, CMP, LIPA #### [facility] [address] [place] [address] [address] Moreno Amato Cholesterol in LDL [Mass/Vol] 121.6 mg/dL Normal [facility] Comment on above: Performed By: #### A MY, CMP, LIPA #### [facility] [address] [place] [address] [address] Moreno Amato Cholesterol.total/Chol esterol in HDL [Mass ratio] 5.2 {ratio} Normal [facility] Comment on above: Performed By: #### A MY, CMP, LIPA #### [facility] [address] [place] [address] [address] Moreno Amato HDL NORMAL > or = 60 mg/dl - LO W CARDIOVASCULAR RISK <40 mg/dl - HIGH CARDIOVASCULAR RISK Normal [facility] Comment on above: Performed By: #### A MY, CMP, LIPA #### [facility] [address] [place] [address] [address] Moreno Amato LDL CALC NORMAL SEE BELOW Normal [facility] Comment on above: Result Comment: <100 mg/dl OPTIMAL 100 - 129 mg/dl NEAR OR ABOVE OPTIMAL 130 - 159 mg/dl BORDERLINE HIGH 160 - 189 mg/dl HIGH >190 mg/dl VERY HIGH Performed By: #### A MY, CMP, LIPA #### [facility] [address] [place] [address] [address] Moreno Amato Triglyceride [Mass/Vol] 267 mg/dL Critically high <=150 [facility] Comment on above: Performed By: #### A MY, CMP, LIPA #### [facility] [address] [place] [address] [address] Moreno Amato VLDL CALC 53.4 mg/dL Normal [facility] Comment on above: Performed By: #### A MY, CMP, LIPA #### [facility] [address] [place] [address] [address] Moreno Amato PROF CHEM 8 (BAS METB)on Anion gap [Moles/Vol] 11.1 mmol/L Normal [facility] Comment on above: Performed By: #### A MY, CMP, LIPA #### [facility] [address] [place] [address] Dr. Moreno Amato Calcium [Mass/Vol] 9.2 mg/dL Normal 8.5-10.1 [facility] Comment on above: Performed By: #### A MY, CMP, LIPA #### [facility] [address] [place] [address] Dr. Moreno Amato Chloride [Moles/Vol] 104 mmol/L Normal 98-107 [facility] Comment on above: Performed By: #### A MY, CMP, LIPA #### [facility] [address] [place] [address] Dr. Moreno Amato CO2 [Moles/Vol] 27.4 mmol/L Normal 21.0-32.0 [facility] Comment on above: Performed By: #### A MY, CMP, LIPA #### [facility] [address] [place] [address] Dr. Moreno Amato Creatinine [Mass/Vol] 1.30 mg/dL Critically high 0.55-1.02 [facility] Comment on above: Performed By: #### A MY, CMP, LIPA #### [facility] [address] [place] [address] [address] Moreno Amato EGFR-AF LATVIAN 51 mL/min/1.73m2 Critically low >=60 [facility] Comment on above: Performed By: #### A MY, CMP, LIPA #### [facility] [address] [place] [address] Dr. Moreno Amato EGFR-NON AF LATVIAN 42 mL/min/1.73m2 Critically low >=60 [facility] Comment on above: Performed By: #### A MY, CMP, LIPA #### [facility] [address] [place] [address] Dr. Moreno Amato Glucose [Mass/Vol] 102 mg/dL Normal 74-106 [facility] Comment on above: Performed By: #### A MY, CMP, LIPA #### [facility] [address] [place] [address] Dr. Moreno Amato Potassium [Moles/Vol] 4.5 mmol/L Normal 3.5-5.1 [facility] Comment on above: Performed By: #### A MY, CMP, LIPA #### [facility] [address] [place] [address] Dr. Moreno Amato Sodium [Moles/Vol] 138 mmol/L Normal 136-145 [facility] Comment on above: Performed By: #### A MY, CMP, LIPA #### [facility] [address] [place] [address] [address] Moreno Amato Urea nitrogen [Mass/Vol] 23.0 mg/dL Critically high 7.0-18.0 [facility] Comment on above: Performed By: #### A MY, CMP, LIPA #### [facility] [address] [place] [address] Dr. Moreno Amato Urea nitrogen/Creatinine [Mass ratio] 17.7 mg/mg Normal [facility] Comment on above: Performed By: #### A MY, CMP, LIPA #### [facility] [address] [place] [address] Dr. Moreno Johnson 03-27-2022 AST [Catalytic activity/Vol] 24 U/L Normal 15-37 [facility] Comment on above: Performed By: #### A MY, CMP, LIPA #### [facility] [address] [place] [address] [address] Moreno Amato SGPTon 03-27-2022 ALT [Catalytic activity/Vol] 20 U/L Normal 14-59 [facility] Comment on above: Performed By: #### A MY, CMP, LIPA #### [facility] [address] [place] [address] [address] Moreno Amato COVID/FLU RT-PCRon SARS-CoV-2 (COVID-19) RNA ELISA+probe Ql (Unsp spec) Negative [facility] Other COVID/FLU RT-PCR Negative [facility] [employer] Other Quick Strepon 03-19-2022 S. pyogenes Org specific cx Ql (Throat) Negative [facility] Other Quick Strep [employer] Other Tobacco Screening.on 023 Adult depression screening assessment No [facility] y 250 DO Work Phone: Fall risk assessment c) Not medically indicated [facility] 250 DO Work Phone: Tobacco use status [facility] b) No [facility] y 250 DO Work Phone: PAP ACOG PANEL 2: 30 to 65on 03-02-2022 . . Normal [facility] Comment on above: Result Comment: Perf ormed at: WB Performed By: #### A MY, CMP, LIPA #### [facility] [address] [place] [address] Dr. Moreno Amato Age Gdln ACOG Testing 30-65 Normal [facility] Comment on above: Performed By: #### A MY, CMP, LIPA #### [facility] [address] [place] [address] [address] Moreno Amato DIAGNOSIS: Comment Normal [facility] Comment on above: Result Comment: NEGA TIVE FOR INTRAEPITHELIAL LESION OR MALIGNANCY. Performed at: WB Performed By: #### A MY, CMP, LIPA #### [facility] [address] [place] [address] [address] Moreno Amato HPV Aptima Negative Normal Negative [facility] Comment on above: Result Comment: This nucleic acid amplification test detects fourteen high-risk HPV types (16,18,31,33,35,39,45,51,52,56,58,59,66,68) without differentiation. Performed at: =G Performed By: #### A MY, CMP, LIPA #### [facility] [address] [place] [address] [address] Moreno Amato HPV Genotype Reflex Comment Normal [facility] Comment on above: Result Comment: Crit eria not met, HPV Genotype not performed. Performed at: WB Performed By: #### A MY CMP, LIPA #### [facility] [address] [place] [address] [address] Moreno Amato Methodology: Comment Normal [facility] Comment on above: Result Comment: This liquid based ThinPrep(R) pap test was screened with the use of an image guided system. Performed at: WB Performed By: #### A MY CMP, LIPA #### [facility] [address] [place] [address] [address] Moreno Amato Note: Comment Normal [facility] Comment on above: Result Comment: The [...] By: #### A MY, CMP, LIPA #### [facility] [address] [place] [address] [address] Moreno Amato Performed by: Comment Normal [facility] Comment on above: Result Comment: Maria Luisa Chou Proof Clerk (ASCP) Performed at: WB Performed By: #### A MY, CMP, LIPA #### [facility] [address] [place], [place] [address] Dr. Moreno Aamto Specimen adequacy: Comment Normal [facility] Comment on above: Result Comment: Sati sfactory for evaluation. Endocervical and/or squamous metaplastic cells (endocervical component) are present. Performed at: WB Performed By: #### A MY, CMP, LIPA #### [facility] [address] [place], [place] [address] Dr. Moreno Amato XR CHEST 2 Von [...] AMY ROSS Date: 2022-02-19 22:40 Normal [facility] CARDIAC STRESS/REST INJE CTIONon 01-23-2022 [facility] CARDIAC STRESS/REST INJECTION Patient Name: DEYSI HERNANDEZ STUDY: MYOCARDIAL PERFUSION STRESS TEST WITH LEXISCAN Performing facility: [facility], [address] [place] [address], [address], [place] [address] [facility] Provider: Carlene Beal MD, FACC PCP: Dr. 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 High Cholesterol; HTN; Chest Pain; Quit smoking <1 year ago. COMPARISON: No comparison. ACCESSION NUMBER(S): [id number]; [id number]; [id number] ORDERING CLINICIAN: MARQUEZ BEAL TECHNIQUE: ONE DAY [...] Electronically signed by: WAQAR MARTINEZ MD Normal [facility] No Panel Informationon 01-23 Normal [facility] 600 DO Work Phone: Tobacco Screening.on 022 Fall risk assessment a) No falls within the last year [facility] 600 DO Work Phone: Tobacco use status [facility] b) No [facility] 600 DO Work Phone: MG MAMM SCREEN 3D NIRMALA CADon 10-30-2021 MG MAMM SCREEN 3D NIRMALA CAD Patient: DEYSI HERNANDEZ Exam Date: 10/30/2021 : 1960 Gender:F Ordering : SHAIKH Ford THOMPSON . Admission #: [id number] Family : Order #: [id number] CLICK HERE TO VIEW EXAM RADIOLOGY REPORT PROCEDURE: MAMMOGRAM SCREENING 3D BILATERAL CAD COMPARISON: MG MAMM NIRMALA SCRN W CAD DIG, 12/05/2012. INDICATIONS: Screening mammography Calculator Name NCI Breast Cancer Risk Assessment Tool 5 Year Breast Cancer Risk 1.00% Lifetime Breast Cancer Risk 5.50% Personal Breast Cancer No Personal Ovarian Cancer No Treatments None Family Cancers None LOCATION: [facility] BREAST COMPOSITION: Scattered areas fibroglandular density. [...] M.D. on 10/31/2021 at 08:[address] [facility] Cardiac Stress Teston 2021 Cardiac Stress Test [facility] [address] [place] [address], [address] [place] [address] Exercise Stress Test Patient Name: DEYSI HERNANDEZ Ordering Physician: [id number] Beal MD Study Date: 10/17/2021 Reading Physician: [id number] Jaycob Newman MD, [facility] MRN/PID: [id number] Supervising Physician: [id number] Jaycob Newman MD, [facility] Accession/Order#: [id number] Referring Physician: Cyn BEAL Date of : 1960 PCP: Mariann THOMPSON Gender: M Fellow: Height: 162.56 cm Nurse: Jackie Shen RN Weight: 68.95 kg Founder And Ceo: KYLE BSA: 1.74 m2 Technologist: BMI: 26.09 kg/m2 Additional Staff: Age: 61 years cc report to: Patient Location: cc report to: [id number] Beal MD Study Type: Cardiac Stress Test Diagnosis/ICD: R07.89-Other chest pain Indication: Chest Pain Atypical Procedure/CPT: Stress Test Interpretation-[id number]; Stress Test Supervision-[id number] Falls Risk: Low: Patient has low risk [...] The adequate level of stress was achieved. [id number] Jaycob Newman MD, FACC Electronically signed on 10/23/2021 at 12:29:13 PM Final Normal [facility] Cardiac Stress Test Please click on the link to view the study images [facility] Work Phone: Cardiac Stress Test [facility] [place] [facility] DO Work Phone: Creatinine and Glomerular fi ltration rate.predicted panel (S/P/Bld)Ordered By: Marquez Beal on 09-18-2021 Creatinine [Mass/Vol] 1.10 mg/dL 0.44-1.03 [facility] Estimated glomerular filtrat ion rate (GFR) non- AmericanOrdered By: Marquez Beal on 09-18-2021 GFR/1.73 sq M.predicted among non-blacks MDRD (S/P/Bld) [Vol rate/Area] 51 mL/Min [facility] No Panel InformationOrdered By: Marquez Beal on 09-18-2021 Estimated GFR () > 60 mL/Min [facility] Comment on above: GFR estimated refere nce range: According to KDOQI guidelines, <60 ml/min/1.73m2 is sufficient to diagnose a patient with chronic kidney disease. Pharmacy Creatinine Clearance (Chem N/A [facility] No Panel Informationon 09-18 9.8\S\9.8 Normal 8.2-10.2 [facility] Work Phone: Comment on above: PERFORMED BY:[place] [address] [place], [place] [id number] MEDICAL DIRECTORJERAMY CALDWELL M.D. 25.1\S\25.1 Normal 22.0-30.0 [facility] Work Phone: 100\S\100 Normal 95-114 [facility] Work Phone: 3.9\S\3.9 Normal 3.5-5.1 [facility] DO Work Phone: 138\S\138 Normal 136-146 [facility] Work Phone: > 60 Normal [facility] Work Phone: Comment on above: GFR estimated refere nce range: According to KDOQI guidelines, <60 ml/min/1.73m2 is sufficient to diagnose a patient with chronic kidney disease. 51\S\[address] [facility] 250 DO Work Phone: 1.10\S\1.10 above high threshold 0.44-1.03 -[facility] 250 DO Work Phone: 15\S\15 Normal 9-23 -[facility] [place] 250 DO Work Phone: 95\S\95 Normal 70-100 -[facility] [place] 250 DO Work Phone: Comment on above: Random Glucose Refer ence Range is dependent on time and content of last meal. Glucose of more than 200 mg/dL in a nonstressed, ambulatory subject supports the diagnosis of Diabetes Mellitus. ADA recommended reference range Serum or plasma calcium teagan urement (mass/volume)Ordered By: Marquez Beal on 09-18-2021 Calcium [Mass/Vol] 9.8 mg/dL 8.2-10.2 [facility] Serum or plasma chloride sophia surement (moles/volume)Ordered By: Marquez Beal on 09-18-2021 Chloride [Moles/Vol] 100 mmol/L 95-114 [facility] Serum or plasma glucose teagan urement (mass/volume)Ordered By: Marquez Beal on 09-18-2021 Glucose [Mass/Vol] 95 mg/dL 70-100 [facility] Comment on above: ADA recommended refe rence range Random Glucose Reference Range is dependent on time and content of last meal. Glucose of more than 200 mg/dL in a nonstressed, ambulatory subject supports the diagnosis of Diabetes Mellitus. Serum or plasma potassium me asurement (moles/volume)Ordered By: Marquez Beal on 09-18-2021 Potassium [Moles/Vol] 3.9 mmol/L 3.5-5.1 [facility] Serum or plasma sodium measu rement (moles/volume)Ordered By: Marquez Beal on 09-18-2021 Sodium [Moles/Vol] 138 mmol/L 136-146 [facility] Serum or plasma total carbon dioxide measurement (moles/volume)Ordered By: Marquez Beal on 09-18-2021 CO2 [Moles/Vol] 25.1 mmol/L 22.0-30.0 [facility] Serum or plasma urea nitroge n measurement (mass/volume)Ordered By: Marquez Beal on 09-18-2021 Urea nitrogen [Mass/Vol] 15 mg/dL 9 [facility] Tobacco Screening.on 022 Adult depression screening assessment No -[facility] 250 DO Work Phone: Fall risk assessment a) No falls within the last year [facility] 250 DO Work Phone: Tobacco use status CPHS a) Yes [facility] 250 DO Work Phone: Tobacco Screening. Yes [facility] 250 DO Work Phone: Bacterial blood cultureOrder ed By: Bong Bansal on 08-19-2021 Bacteria identified Cx Nom (Bld) NO GROWTH 5 DAYS [facility] Basophils Auto (Bld) [#/Vol] Ordered By: Alaina Arce on 08-17-2021 Basophils (Bld) [#/Vol] 0.1 10*3/uL 0.0-0.2 [facility] Basophils/100 WBC Auto (Bld) Ordered By: Alaina Arce on 08-17-2021 Basophils/100 WBC (Bld) 0.7 % . [facility] Blood hemoglobin measurement (mass/volume)Ordered By: Alaina Arce on 08-17-2021 Hemoglobin (Bld) [Mass/Vol] 15.0 g/dL 11.8-15.4 [facility] Blood leukocytes automated c ount (number/volume)Ordered By: Alaina Arce on 08-17-2021 WBC (Bld) [#/Vol] 10.0 10*3/uL 4.5-11.0 [facility] Creatinine and Glomerular fi ltration rate.predicted panel (S/P/Bld)Ordered By: Alaina Arce on 08-17-2021 Creatinine [Mass/Vol] 1.27 mg/dL 0.44-1.03 [facility] Eosinophils Auto (Bld) [#/Vo l]Ordered By: Alaina Arce on 08-17-2021 Eosinophils (Bld) [#/Vol] 0.2 10*3/uL 0.0-0.45 [facility] Eosinophils/100 WBC Auto (Bl d)Ordered By: Alaina Arce on 08-17-2021 Eosinophils/100 WBC (Bld) 1.8 % . [facility] Erythrocyte distribution wid th Auto (RBC) [Ratio]Ordered By: Alaina Arce on 08-17-2021 Erythrocyte distribution width (RBC) [Ratio] 12.7 % 11.9-15.3 [facility] Estimated glomerular filtrat ion rate (GFR) non- AmericanOrdered By: Alaina Arce on 08-17-2021 GFR/1.73 sq M.predicted among non-blacks MDRD (S/P/Bld) [Vol rate/Area] 43 mL/Min [facility] Hematocrit Auto (Bld) [Volum e fraction]Ordered By: Alaina Arce on 08-17-2021 Hematocrit (Bld) [Volume fraction] 42.6 % 34.0-46.4 [facility] Laboratory - Hematology and Cell countsOrdered By: Alaina Arce on 08-17-2021 Nucleated RBC/100 WBC (Bld) [Ratio] 0.0 % 0-0.5 [facility] Lymphocytes Auto (Bld) [#/Vo l]Ordered By: Alaina Arce on 08-17-2021 Lymphocytes (Bld) [#/Vol] 2.4 10*3/uL 1.00-4.8 [facility] Lymphocytes/100 WBC Auto (Bl d)Ordered By: Alaina Arce on 08-17-2021 Lymphocytes/100 WBC (Bld) 23.7 % . [facility] MCH Auto (RBC) [Entitic mass ]Ordered By: Alaina Arce on 08-17-2021 MCH (RBC) [Entitic mass] 31.0 pg 24.7-34.3 [facility] MCHC Auto (RBC) [Mass/Vol]Or dered By: Alaina Arce on 08-17-2021 MCHC (RBC) [Mass/Vol] 35.3 g/dL 32.0-35.0 [facility] MCV Auto (RBC) [Entitic vol] Ordered By: Alaina Arce on 08-17-2021 MCV (RBC) [Entitic vol] 87.8 fL 80-100 [facility] Monocytes Auto (Bld) [#/Vol] Ordered By: Alaina Arce on 08-17-2021 Monocytes (Bld) [#/Vol] 1.0 10*3/uL 0.0-0.8 [facility] Monocytes/100 WBC Auto (Bld) Ordered By: Alaina Arce on 08-17-2021 Monocytes/100 WBC (Bld) 10.2 % . [facility] Neutrophils Auto (Bld) [#/Vo l]Ordered By: Alaina Arce on 08-17-2021 Neutrophils (Bld) [#/Vol] 6.3 10*3/uL 1.8-7.7 [facility] Neutrophils/100 WBC Auto (Bl d)Ordered By: Alaina Arce on 08-17-2021 Neutrophils/100 WBC (Bld) 63.6 % . [facility] No Panel InformationOrdered By: Alaina Arce on 08-17-2021 Estimated GFR () 52 mL/Min [facility] Comment on above: GFR estimated refere nce range: According to KDOQI guidelines, <60 ml/min/1.73m2 is sufficient to diagnose a patient with chronic kidney disease. Pharmacy Creatinine Clearance (Chem 47.54 [facility] Platelet mean volume Auto (B ld) [Entitic vol]Ordered By: Alaina Arce on 08-17-2021 Platelet mean volume (Bld) [Entitic vol] 8.5 fL 6.3-10.7 [facility] Platelets Auto (Bld) [#/Vol] Ordered By: Alaina Arce on 08-17-2021 Platelets (Bld) [#/Vol] 241 10*3/uL 150-450 [facility] RBC Auto (Bld) [#/Vol]Ordere d By: Alaina Arce on 08-17-2021 RBC (Bld) [#/Vol] 4.85 10*6/uL 3.60-5.00 [facility] Serum or plasma calcium teagan urement (mass/volume)Ordered By: Alaina Arce on 08-17-2021 Calcium [Mass/Vol] 8.9 mg/dL 8.2-10.2 [facility] Serum or plasma chloride sophia surement (moles/volume)Ordered By: Alaina Arce on 08-17-2021 Chloride [Moles/Vol] 101 mmol/L 95-114 [facility] Serum or plasma glucose teagan urement (mass/volume)Ordered By: Alaina Arce on 08-17-2021 Glucose [Mass/Vol] 132 mg/dL 70-100 [facility] Comment on above: ADA recommended refe rence range Random Glucose Reference Range is dependent on time and content of last meal. Glucose of more than 200 mg/dL in a nonstressed, ambulatory subject supports the diagnosis of Diabetes Mellitus. Serum or plasma potassium me asurement (moles/volume)Ordered By: Alaina Arce on 08-17-2021 Potassium [Moles/Vol] 2.9 mmol/L 3.5-5.1 [facility] Comment on above: Results called at 0721 on 08/17/21 Serum or plasma sodium measu rement (moles/volume)Ordered By: Alaina Arce on 08-17-2021 Sodium [Moles/Vol] 137 mmol/L 136-146 [facility] Serum or plasma total carbon dioxide measurement (moles/volume)Ordered By: Alaina Arce on 08-17-2021 CO2 [Moles/Vol] 25.3 mmol/L 22.0-30.0 [facility] Serum or plasma urea nitroge n measurement (mass/volume)Ordered By: Alaina Arce on 08-17-2021 Urea nitrogen [Mass/Vol] 17 mg/dL 9-23 [facility] Albumin [Mass/volume] in Ser um or PlasmaOrdered By: Alaina Arce on 08-16-2021 Albumin [Mass/Vol] 3.1 g/dL 3.2-5.5 [facility] Globulin Calc (S) [Mass/Vol] Ordered By: Alaina Arce on 08-16-2021 Globulin (S) [Mass/Vol] 3.0 g/dL [facility] Protein [Mass/volume] in Ser um or PlasmaOrdered By: Alaina Arce on 08-16-2021 Protein [Mass/Vol] 6.1 g/dL 6.1-7.9 [facility] Serum or plasma alanine spencer otransferase measurement without P-5'-P (enzymatic activiOrdered By: Alaina Arce on 08-16-2021 ALT No additional P-5'-P [Catalytic activity/Vol] 57 U/L 10-60 [facility] Serum or plasma albumin/glob ulin mass ratioOrdered By: Alaina Arce on 08-16-2021 Albumin/Globulin [Mass ratio] 1.0 {ratio} [facility] Serum or plasma alkaline calvin sphatase measurement (enzymatic activity/volume)Ordered By: Alaina Arce on 08-16-2021 ALP [Catalytic activity/Vol] 76 U/L 32-92 [facility] Serum or plasma aspartate am inotransferase measurement (enzymatic activity/volume)Ordered By: Alaina Arce on 08-16-2021 AST [Catalytic activity/Vol] 47 U/L 10-42 [facility] Serum or plasma total biliru bin measurement (mass/volume)Ordered By: Alaina Arce on 08-16-2021 Bilirubin [Mass/Vol] 1.5 mg/dL 0.3-1.2 [facility] Comment on above: Samples from patient s who have taken Naproxen have shown spurious elevation in Total Bilirubin levels. A metabolite of Naproxen, O-desmethylnaproxen, has been shown to interfere with the Jeneulaik-Grof method for measuring Total Bilirubin. Amphetamine Screen Ql (U)Ord ered By: Alaina Arce on 08-15-2021 Amphetamines Ql (U) Negative Negative [facility] Antithrombin measurement (un its/volume) in platelet poor plasma by chromogenic methodOrdered By: Janet Hamm on 08-15-2021 Antithrombin Chromogenic method Qn (PPP) 113 % 75-135 [facility] Comment on above: Direct Xa inhibitor anticoagulants such as rivaroxaban, apixaban and edoxaban will lead to spuriously elevated antithrombin activity levels possibly masking a deficiency. Barbiturates [Presence] in U rineOrdered By: Alaina Arce on 08-15-2021 Barbiturates Ql (U) Negative Negative [facility] Benzodiazepines [Presence] i n UrineOrdered By: Alaina Arce on 08-15-2021 Benzodiazepines Ql (U) Negative Negative [facility] Beta 2 glycoprotein 1 IgG Ab [Units/volume] in SerumOrdered By: Janet Hamm on 08-15-2021 Beta 2 glycoprotein 1 IgG Qn (S) <9 0-20 [facility] Comment on above: Result Units: [...] glycoprotein 1 IgM Qn (S) <9 0-32 [facility] Comment on above: Result Units: [...] 08-15-2021 Cannabinoids Screen Ql (U) Negative Negative [facility] Comment on above: These are [...] IA Qn (S) <9 GPL U/mL 0-14 [facility] Comment on above: Negative: <15 Indeterminate: 15 - 20 Low-Med Positive: >20 - 80 High Positive: >80 Cardiolipin IgM Ab [Units/vo lume] in Serum by ImmunoassayOrdered By: Janet Hamm on 08-15-2021 Cardiolipin IgM IA Qn (S) 17 MPL U/mL 0-12 [facility] Comment on above: Negative: <13 Indeterminate: 13 - 20 Low-Med Positive: >20 - 80 High Positive: >80 Cholesterol [Mass/volume] in Serum or PlasmaOrdered By: Janet Hamm on 08-15-2021 Cholesterol [Mass/Vol] 259 mg/dL 140-200 [facility] Comment on above: Chol less than 200 m g/dl low risk Chol 201-239 mg/dl borderline risk Chol 240 mg/dl and greater high risk Cholesterol in LDL Calc [Mas s/Vol]Ordered By: Janet Hamm on 08-15-2021 Cholesterol in LDL [Mass/Vol] 176 mg/dL 0-100 [facility] Comment on above: LDL ATP III CLASSIFI CATION LDL less than 100 mg/dL Optimal LDL 100-129 mg/dL Near or above optimal LDL 130-159 mg/dL Borderline high LDL 160-189 mg/dL High LDL greater than 189 mg/dL Very high Cholesterol in VLDL Calc [Ma ss/Vol]Ordered By: Janet Hamm on 08-15-2021 Cholesterol in VLDL [Mass/Vol] 32 mg/dL [facility] Dilute Vinay's viper venom timeOrdered By: Janet Hamm on 08-15-2021 dRVVT Coag (PPP) [Time] 45.5 s 0.0-47.0 [facility] Free protein S measurementOr dered By: Janet Hamm on 08-15-2021 Protein S Free Ag IA Qn (PPP) 134 % 61-136 [facility] Functional protein C measure mentOrdered By: Janet Hamm on 08-15-2021 Protein C actual/normal Chromogenic method (PPP) [Rel catalytic activity/Vol] 158 % 73-180 [facility] Laboratory - Drug toxicology Ordered By: Alaina Arce on 08-15-2021 Opiates Ql (U) Negative Negative [facility] Lupus anticoagulant [Interpr etation] in Platelet poor plasmaOrdered By: Janet Hamm on 08-15-2021 Lupus anticoagulant (PPP) [Interp] Comment: . [facility] Comment on above: No lupus anticoagula nt was detected. No Panel InformationOrdered By: Janet Hamm on 08-15-2021 Activated Protein C Resist Confirm 2.6 ratio 2.2-3.5 [facility] Comment on above: The APCR result may be falsely increased (masking an abnormal, low APCR result) in patients on direct Xa inhibitor (e.g., rivaroxaban, apixaban, edoxaban) or a direct thrombin inhibitor (e.g., dabigatran) anticoagulant therapy due to assay interference by these drugs. Phencyclidine Screen Ql (U)O rdered By: Alaina Arce on 08-15-2021 Phencyclidine Ql (U) Negative Negative [facility] Plasminogen measurementOrder ed By: Janet Hamm on 08-15-2021 Plasminogen actual/normal Chromogenic method (PPP) [Rel catalytic activity/Vol] 119 % 70-150 [facility] Platelet poor plasma ratio o f lupus anticoagulant-sensitive activated partial thromboOrdered By: Janet Hamm on 08-15-2021 aPTT.lupus sensitive.excess phospholipid actual/normal Coag (PPP) [Relative time] 38.6 sec 0.0-47.6 [facility] Prothrombin gene [id number] mut ation detectionOrdered By: Janet Hamm on 08-15-2021 F2 gene targeted mutation analysis Molgen Nom (Bld/Tiss) See comment . [facility] Comment on above: Result: c.*97G>A [...] the F2 gene and a c.1601G>A (p. [id number]) variant in the F5 gene (commonly referred to as Factor V Leiden) have an approximately 20- fold increased risk for venous thromboembolism. Risks are likely to be even higher in more complex genotype combinations involving the F2 c.*97G>A variant and Factor V Leiden (PMID: 27111874). Additional risk factors include but are not [...] health care providers to discuss results at [phone] (9232). Test Details: Variant analyzed: c.*97G>A, previously referred to as [id number] Methods/Limitations: DNA analysis of the F2 gene [...] developed and its performance characteristics determined by [employer]. It has not been cleared or approved by the Food and Drug Administration. References: Taj S, Briana AK, Gilberto R, Bogdan WW, Yanick WOMACK; ACMG Professional Practice and Guidelines Committee. Addendum: [place] [employer] consensus statement on factor V Leiden mutation testing. Zoë [employer]. 2020Apr 22. doi: 10.1038/d19309-541-19046-b. PMID: 56992503. Edgardo KRISHNA. Prothrombin Thrombophilia. 2005Sep 11 [Updated 2020Mar 24]. In: Rober MP, Thaddeus HH, Iman RA, et al., editors. Aliyah(Hannah) [Internet]. [place] ([place]): [facility]; 5917-1592. Available from: https://www.ncbi.nlm.nih.gov/books/KLY1233/ Ariel S, Briana AK, Aakash X, Grady B, Vidal EB, Siobhan P, Anny CS; [facility] Laboratory [employer] Committee. Venous thromboembolism laboratory testing (factor V Leiden and factor II c.*97G>A), 2018 update: a technical standard of the [place] [employer] (ACMG). Zo[employer] Med. 2018 Jan;20(12):8755-0814. doi: 10.1038/[id number]-k. Epub 2017Nov 22. PMID: 71092200. Evon Negron, PhD, FACMG Otis Guthrie, PhD, FACMG Rehan Goodson, PhD, FACMG Nick Bergeron, PhD, FACMG W Mona Pagan, PhD, FACMG Vee Mera, PhD, FACMG Gregoria Carrasco, PhD, FAC Performed at: CB - [facility] [id number] [employer]: Harshad Acosta PhD, Phone: [phone] Performed at: BN - [facility] [id number] Operator [employer]: Veronica Ring MD, Phone: [phone] Performed at: - [facility] [address] [place], [place] [id number] Operator Electronic [employer]fare: Becky Cabezas [facility], Phone: [phone] Serum or plasma high density lipoprotein (HDL) cholesterol measurementOrdered By: Janet Hamm on 08-15-2021 Cholesterol in HDL [Mass/Vol] 50 mg/dL 35-85 [facility] Comment on above: HDL CHOL ATP-III CLA SSIFICATION Cardiovascular Risk HDL > or equal to 60 mg/dL LOW HDL < 40 mg/dL HIGH Serum or plasma homocysteine measurement (moles/volume)Ordered By: Janet Hamm on 08-15-2021 Homocysteine [Moles/Vol] 12.8 umol/L 0.0-14.5 [facility] Serum or plasma total choles terol/high density lipoprotein (HDL) cholesterol mass ratOrdered By: Janet Hamm on 08-15-2021 Cholesterol.total/Chol esterol in HDL [Mass ratio] 5.2 {ratio} <5.0 [facility] Triglyceride [Mass/volume] i n Serum or PlasmaOrdered By: Janet Hamm on 08-15-2021 Triglyceride [Mass/Vol] 164 mg/dL 35-149 [facility] Comment on above: TRIG ATP III CLASSIF ICATION TRIG less than 150 mg/dL Normal TRIG 150-199 mg/dL Borderline high TRIG 200-500 mg/dL High TRIG greater than 500 mg/dL Very high Standard traceable to the Center for Disease Conrtrol and Prevention (CDC) test method. Urine cocaine detectionOrder ed By: Alaina Arce on 08-15-2021 Cocaine Ql (U) Negative Negative [facility] Urine culture routineOrdered By: Alaina Arce on 08-15-2021 Bacteria identified Cx Nom (U) 2 Days [facility] aPTT.lupus sensitive (LA scr een)Ordered By: Janet Hamm on 08-15-2021 aPTT.lupus sensitive Coag (PPP) [Time] 35.2 sec 0.0-51.9 [facility] aPTT.lupus sensitive/aPTT.sheryl pus sensitive W excess phospholipid (screen to confirm raOrdered By: Janet Hamm on 08-15-2021 aPTT.lupus sensitive/aPTT.lupus sensitive W excess phospholipid Coag (PPP) [Ratio] 0.94 Ratio 0.00-1.34 [facility] Activated partial thrombopla stin time (aPTT) in platelet poor plasma by coagulation aOrdered By: Bong Bansal on 08-14-2021 aPTT Coag (PPP) [Time] 28.2 s 25.1-36.5 [facility] Bacterial blood cultureOrder ed By: Bong Bansal on 08-14-2021 Bacteria identified Cx Nom (Bld) NO GROWTH 5 DAYS [facility] Creatinine [Mass/volume] in UrineOrdered By: Alaina Arce on 08-14-2021 Creatinine (U) [Mass/Vol] 74.6 mg/dL [facility] Comment on above: No reference range e stablished Glucose Glucometer (BldC) [M ass/Vol]Ordered By: Alaina Arce on 08-14-2021 Glucose [Mass/Vol] 102 mg/dL [facility] Comment on above: Random Glucose Refer ence Range is dependent on time and content of last meal. Glucose of more than 200 mg/dL in a nonstressed, ambulatory subject supports the diagnosis of Diabetes Mellitus. Glucose mean value [Mass/vol ume] in Blood Estimated from glycated hemoglobinOrdered By: Janet Hamm on 08-14-2021 Average glucose Estimated from glycated hemoglobin (Bld) [Mass/Vol] 126 mg/dL [facility] Hemoglobin A1c percentageOrd ered By: Janet Hamm on 08-14-2021 HbA1c (Bld) [Mass fraction] 6.0 % 4.3-5.6 [facility] Comment on above: Increased risk for d iabetes: 5.7 - 6.4 diabetes: >6.4 glycemic control for adults with diabetes: <7.0 Laboratory - Chemistry and C hemistry - challengeOrdered By: Alaina Arce on 08-14-2021 Magnesium [Mass/Vol] 2.3 mg/dL 1.6-2.6 [facility] Laboratory - CoagulationOrde red By: Bong Bansal on 08-14-2021 PT Coag (PPP) [Time] 11.8 s 9.0-12.9 [facility] Platelet poor plasma interna tional normalized ratio (INR) by coagulation assay (relatOrdered By: Bong Bansal on 08-14-2021 INR Coag (PPP) [Relative time] 1.1 {INR} [facility] Comment on above: INR Therapeutic [...] 08-14-2021 Protein (U) [Mass/Vol] 100 mg/dL 0-9 [facility] Renin activityOrdered By: Emma Arce on 08-14-2021 Renin (P) [Catalytic activity/Vol] 27.141 ng/mL/hr 0.167-5.38 0 [facility] Comment on above: This test was develo ped and its performance characteristics determined by [employer]. It has not been cleared or approved by the Food and Drug Administration. Performed at: [address] [id number] [employer]: Veronica Ring MD, Phone: [phone] Serum or plasma aldosterone measurement (mass/volume)Ordered By: Alaina Arce on 08-14-2021 Aldosterone [Mass/Vol] 7.8 ng/dL 0.0-30.0 [facility] Comment on above: This test was develo ped and its performance characteristics determined by [employer]. It has not been cleared or approved by the Food and Drug Administration. Performed at: [address] [id number] [employer]: Veronica Ring MD, Phone: [phone] Urine protein/creatinine rat ioOrdered By: Alaina Arce on 08-14-2021 Protein/Creatinine (U) [Ratio] 1340 mg/g{Cre} 0-200 [facility] Urine sodium measurement (mo les/volume)Ordered By: Alaina Arce on 08-14-2021 Sodium (U) [Moles/Vol] 54.0 mmol/L [facility] Comment on above: No reference range e stablished AMYLASEon 08-13-2021 Amylase [Catalytic activity/Vol] 80 U/L Normal 25-115 [facility] Comment on above: Performed By: #### A MY, CMP, LIPA #### [facility] [address] [place] [address] Dr. Moreno Amato Automated erythrocytes count in urine sediment (number/area)Ordered By: Alaina Arce on 08-13-2021 RBC Auto (Urine sed) [#/Area] 5-9 [HPF] 0-4 [facility] Automated leukocytes count i n urine sediment (number/area)Ordered By: Alaina Arce on 08-13-2021 WBC Auto (Urine sed) [#/Area] 20-49 [HPF] 0-4 [facility] Bilirubin Test strip Ql (U)O rdered By: Alaina Arce on 08-13-2021 Bilirubin Ql (U) Negative Negative [facility] CBC AUTO DIFFon 08-13-2021 BASO # 0.1 103/ul Normal 0.0-0.1 [facility] Comment on above: Performed By: #### C BC #### [facility] [facility] [address] [place] [address] Dr. Moreno Amato Basophils/100 WBC (Bld) 0.6 % Normal 0.2-2.0 [facility] Comment on above: Performed By: #### C BC #### [facility] [address] [place] [address] Dr. Moreno Amato EO # 0.1 103/ul Normal 0.0-0.[address] [facility] Comment on above: Performed By: #### C BC #### [facility] [address] [place] [address] Dr. Moreno Amato Eosinophils/100 WBC (Bld) 0.6 % Critically low 0.9-7.[address] [facility] Comment on above: Performed By: #### C BC #### [facility] [address] [place] [address] Dr. Moreno Amato Erythrocyte distribution width (RBC) [Ratio] 11.9 % Normal 11.0-15.[address] [facility] Comment on above: Performed By: #### C BC #### [facility] [address] [place] [address] Dr. Moreno Amato Hematocrit (Bld) [Volume fraction] 51.0 % Critically high 36.0-48.0 [facility] Comment on above: Performed By: #### C BC #### [facility] [address] [address] [address] Moreno Amato Hemoglobin (Bld) [Mass/Vol] 18.2 g/dL Critically high 12.0-16.0 [facility] Comment on above: Performed By: #### C BC #### [facility] [address] [address] [address] Moreno Amato IG # 0.04 10e3/ul Critically high 0.00-0.03 [facility] Comment on above: Performed By: #### C BC #### [facility] [address] [address] [address] Moreno Amato IG % 0.3 % Normal 0.0-0.5 [facility] Comment on above: Performed By: #### C BC #### [facility] [address] [address] [address] Moreno Amato LYMPH # 2.2 103/ul Normal 1.2-3.8 [facility] Comment on above: Performed By: #### C BC #### [facility] [address] [address] [address] Moreno Amato Lymphocytes/100 WBC (Bld) 17.1 % Critically low 20.5-60.0 [facility] Comment on above: Performed By: #### C BC #### [facility] [address] [address] [address] Moreno Amato MANUAL DIFF REQ NO Normal [facility] Comment on above: Performed By: #### C BC #### [facility] [address] [address] [address] Moreno Amato MCH (RBC) [Entitic mass] 30.4 pg Normal 26.7-34.0 [facility] Comment on above: Performed By: #### C BC #### [facility] [address] [address] [address] Moreno Amato MCHC (RBC) [Mass/Vol] 35.7 g/dL Critically high 29.9-35.2 [facility] Comment on above: Performed By: #### C BC #### [facility] [address] [address] [address] Moreno Amato MCV (RBC) [Entitic vol] 85.1 fL Normal 81.0-99.0 [facility] Comment on above: Performed By: #### C BC #### [facility] [address] [address] [address] Moreno Amato MONO # 1.3 103/ul Critically high 0.3-0.8 [facility] Comment on above: Performed By: #### C BC #### [facility] [address] [place] [address] Dr. Moreno Amato Monocytes/100 WBC (Bld) 10.0 % Normal 1.7-12.0 [facility] Comment on above: Performed By: #### C BC #### [facility] [address] [place] [address] Dr. Moreno Amato NEUT # 9.3 103/ul Critically high 1.4-6.5 [facility] Comment on above: Performed By: #### C BC #### [facility] [address] [place] [address] Dr. Moreno Amato Neutrophils/100 WBC (Bld) 71.4 % Normal 43.0-75.0 [facility] Comment on above: Performed By: #### C BC #### [facility] [address] [place] [address] Dr. Moreno Amato Platelet mean volume (Bld) [Entitic vol] 9.8 fL Normal 9.5-13.5 [facility] Comment on above: Performed By: #### C BC #### [facility] [address] [place] [address] Dr. Moreno Amato PLT 242 103/ul Normal 150-[address] [facility] Comment on above: Performed By: #### C BC #### [facility] [address] [place] [address] Dr. Moreno Amato RBC 5.99 106/ul Critically high 4.20-5.40 [facility] Comment on above: Performed By: #### C BC #### [facility] [address] [place], [place] [address] Dr. Moreno Amato WBC 13.0 103/ul Critically high 4.0-11.0 [facility] Comment on above: Performed By: #### C #### [facility] [address] [place], [place] [address] ABD/PELVIS WO CONon [...] Vinay MANN Date: 2021-08-13 03:[address] [facility] CT STROKE HEAD WOon 08-14-19 CT [...] MAVIS ROSSI Date: 2021-08-13 07:[address] [facility] CULTURE URINEon 08-13-2021 CULTURE URINE Culture Observations : LIGHT GROWTH OF MIXED GENITAL ZOE. NO POTENTIAL PATHOGENS SEEN. Normal [facility] Comment on above: Performed By: #### A MY, CMP, LIPA #### [facility] [address] [place] [address] Dr. Moreno Amato Color Auto (U)Ordered By: Emma Arce on 08-13-2021 Color (U) Yellow [facility] Covid-19 PCR (CVDTBH)on 07-20 SARS-CoV-2 (COVID-19) RNA ELISA+probe Ql (Unsp spec) Not detected Normal NOT DETECTED [facility] Comment on above: Result Comment: When [...] for this test is supported by the Director Of Nurses Registry of Health and Human Service's declaration that [...] used). Performed By: #### C VDTB #### [facility] [address] [place] [address] Dr. Moreno Amato ER URINE PROFILEon 2 Bilirubin Ql (U) Negative Normal NEGATIVE [facility] Comment on above: Performed By: #### E RUR, UMICRO #### [facility] [address] [place] [address] Dr. Moreno Amato Clarity (U) CLEAR Normal CLEAR [facility] Comment on above: Performed By: #### E RUR, UMICRO #### [facility] [address] [place] [address] Dr. Moreno Amato Color (U) LT. YELLOW Normal YELLOW [facility] Comment on above: Performed By: #### E RUR, UMICRO #### [facility] [address] [place] [address] Dr. Moreno Amato ERUAHD A micrscopic examina tion will be performed if indicated. Normal [facility] Comment on above: Performed By: #### E RUR, UMICRO #### [facility] [address] [place] [address] Dr. Moreno mAato Glucose Ql (U) Negative Normal NEGATIVE [facility] Comment on above: Performed By: #### E RUR, UMICRO #### [facility] [address] [place] [address] Dr. Moreno Amato Hemoglobin Ql (U) MODERATE Abnormal NEGATIVE [facility] Comment on above: Performed By: #### E RUR, UMICRO #### [facility] [address] [place] [address] Dr. Moreno Amato Ketones Ql (U) Negative Normal NEGATIVE [facility] Comment on above: Performed By: #### E RUR, UMICRO #### [facility] [address] [place] [address] Dr. Moreno Amato LEUKOCYTES SMALL Abnormal NEGATIVE [facility] Comment on above: Performed By: #### E RUR, UMICRO #### [facility] [address] [place] [address] Dr. Moreno Amato Nitrite Ql (U) Positive Abnormal NEGATIVE [facility] Comment on above: Performed By: #### NAOMI FRANCISCO #### [facility] [address] [place] [address] Dr. Moreno Amato pH (U) 6.0 [pH] Normal 5-9 [facility] Comment on above: Performed By: #### NAOMI FRANCISCO #### [facility] [address] [place] [address] Dr. Moreno Amato SPEC GRAVITY 1.020 Normal 1.005-<=1. 025 [facility] Comment on above: Performed By: #### NAOMI FRANCISCO #### [facility] [address] [place] [address] Dr. Moreno Amato UA PROTEIN >300 Abnormal NEGATIVE/ TRACE [facility] Comment on above: Performed By: #### NAOMI FRANCISCO #### [facility] [address] [place] [address] Dr. Moreno Amato UR MICRO IND INDICATED Normal [facility] Comment on above: Performed By: #### NAOMI FRANCISCO #### [facility] [address] [place] [address] Dr. Moreno Amato Urobilinogen Qn (U) 0.2 {[place]'U}/dL Normal 0.2 - 1. 0 [facility] Comment on above: Performed By: #### NAOMI FRANCISCO #### [facility] [address] [place] [address] Dr. Moreno Amato Ketones Auto test strip (U) [Mass/Vol]Ordered By: Alaina Arce on 08-13-2021 Ketones (U) [Mass/Vol] Negative Negative [facility] LACTATE/LACTIC ACIDon 2021 Lactate [Moles/Vol] 1.1 mmol/L Normal 0.4-1.9 [facility] Comment on above: Performed By: #### A MY, CMP, LIPA #### [facility] [address] [address] [address] Moreno Amato LIPASEon 08-13-2021 Lipase [Catalytic activity/Vol] 524.0 U/L Critically high 73.0-393.0 [facility] Comment on above: Performed By: #### A MY, CMP, LIPA #### [facility] [address] [address] [address] Moreno Amato Laboratory - Chemistry and C hemistry - challengeOrdered By: Alaina Arce on 08-13-2021 Lactate [Moles/Vol] 1.6 mmol/L 0.5-2.2 [facility] - UrinalysisOrder ed By: Alaina Arce on 08-13-2021 Hyaline casts LM Ql (Urine sed) 9-19 [LPF] 0-8 [facility] Nitrite Test strip Ql (U)Ord ered By: Alaina Arce on 08-13-2021 Nitrite Ql (U) Positive Negative [facility] POINT OF CARE GLUCOSEon 07-20 Glucose [Mass/Vol] 129 mg/dL Critically high 74-106 [facility] Comment on above: Performed By: #### A MY, CMP, LIPA #### [facility] [address] [place] [address] Dr. Moreno Amato PROF 14(COMP METB)on 022 Albumin [Mass/Vol] 3.4 g/dL Normal 3.4-5.0 [facility] Comment on above: Performed By: #### A MY, CMP, LIPA #### [facility] [address] [place] [address] Dr. Moreno Amato Albumin/Globulin [Mass ratio] 0.8 {ratio} Normal [facility] Comment on above: Performed By: #### A MY, CMP, LIPA #### [facility] [address] [place] [address] Dr. Moreno Amato ALP [Catalytic activity/Vol] 105 U/L Normal 46-116 [facility] Comment on above: Performed By: #### A MY, CMP, LIPA #### [facility] [address] [address] [address] Moreno Amato ALT [Catalytic activity/Vol] 22 U/L Normal 14-59 [facility] Comment on above: Performed By: #### A MY, CMP, LIPA #### [facility] [address] [address] [address] Moreno Amato Anion gap [Moles/Vol] 11.6 mmol/L Normal [facility] Comment on above: Performed By: #### A MY, CMP, LIPA #### [facility] [address] [address] [address] Moreno Amato AST [Catalytic activity/Vol] 22 U/L Normal 15-37 [facility] Comment on above: Performed By: #### A MY, CMP, LIPA #### [facility] [address] [place] [address] Dr. Moreno Amato Bilirubin [Mass/Vol] 0.7 mg/dL Normal 0.2-1.0 [facility] Comment on above: Performed By: #### A MY, CMP, LIPA #### [facility] [address] [address] [address] Moreno Amato Calcium [Mass/Vol] 9.6 mg/dL Normal 8.5-10.1 [facility] Comment on above: Performed By: #### A MY, CMP, LIPA #### [facility] [address] [place] [address] Dr. Moreno Amato Chloride [Moles/Vol] 97 mmol/L Critically low 98-107 [facility] Comment on above: Performed By: #### A MY, CMP, LIPA #### [facility] [address] [address] [address] Moreno Amato CO2 [Moles/Vol] 31.2 mmol/L Normal 21.0-32.0 [facility] Comment on above: Performed By: #### A MY, CMP, LIPA #### [facility] [address] [address] [address] Moreno Amato Creatinine [Mass/Vol] 1.64 mg/dL Critically high 0.55-1.02 [facility] Comment on above: Performed By: #### A MY, CMP, LIPA #### [facility] [address] [address] [address] Moreno Amato EGFR-AF LATVIAN 39 mL/min/1.73m2 Critically low >=60 [facility] Comment on above: Performed By: #### A MY, CMP, LIPA #### [facility] [address] [place] [address] Dr. Moreno Amato EGFR-NON AF LATVIAN 32 mL/min/1.73m2 Critically low >=60 [facility] Comment on above: Performed By: #### A MY, CMP, LIPA #### [facility] [address] [place] [address] Dr. Moreno Amato Globulin (S) [Mass/Vol] 4.1 g/dL Normal [facility] Comment on above: Performed By: #### A MY, CMP, LIPA #### [facility] [address] [place] [address] Dr. Moreno Amato Glucose [Mass/Vol] 110 mg/dL Critically high 74-106 [facility] Comment on above: Performed By: #### A MY, CMP, LIPA #### [facility] [address] [place] [address] Dr. Moreno Amato Potassium [Moles/Vol] 2.8 mmol/L Critically low 3.5-5.1 [facility] Comment on above: Performed By: #### A MY, CMP, LIPA #### [facility] [address] [place] [address] Dr. Moreno Amato Protein [Mass/Vol] 7.5 g/dL Normal 6.4-8.2 [facility] Comment on above: Performed By: #### A MY, CMP, LIPA #### [facility] [address] [place] [address] Dr. Moreno Amato Sodium [Moles/Vol] 137 mmol/L Normal 136-145 [facility] Comment on above: Performed By: #### A MY, CMP, LIPA #### [facility] [address] [place] [address] Dr. Moreno Amato Urea nitrogen [Mass/Vol] 26.0 mg/dL Critically high 7.0-18.0 [facility] Comment on above: Performed By: #### A MY, CMP, LIPA #### [facility] [address] [address] [address] Moreno Amato Urea nitrogen/Creatinine [Mass ratio] 15.9 mg/mg Normal [facility] Comment on above: Performed By: #### A MY, CMP, LIPA #### [facility] [address] [address] [address] Moreno Amato Protein Auto test strip (U) [Mass/Vol]Ordered By: Alaina Arce on 08-13-2021 Protein (U) [Mass/Vol] mg/dL Negative [facility] Specific gravity Auto test s trip (U) [Rel density]Ordered By: Alaina Arce on 08-13-2021 Specific gravity (U) [Rel density] 1.017 1.001-1.03 0 [facility] Squamous epithelial cells de tection in urine sediment by light microscopyOrdered By: Alaina Arce on 08-13-2021 Epithelial cells.squamous LM Ql (Urine sed) 3-4 [HPF] 0-2 [facility] TROPONIN, HIGH SENSITIVITYon 08-13-2021 HSTROP 91.0 pg/mL Critically high 4.0-51.3 [facility] Comment on above: Result Comment: CUT- OFF POINTS HAVE BEEN ESTABLISHED BASED ON THE FOURTH UNIVERSAL DEFINITIONS OF MYOCARDIAL INFARCTION. THE UPPER REFERENCE LIMIT (URL) OF TROPONIN, DEFINED THE 99TH PERCENTILE OF cTnI DISTRIBUTION IN A REFERENCE POPULATION, HAS BEEN CONFIRMED THE DECISION THRESHOLD FOR [place] DIAGNOSIS. Performed By: #### A MY, CMP, LIPA #### [facility] [address] [address] [address] Moreno Amato HSTROP 109.0 pg/mL Critically high 4.0-51.3 [facility] Comment on above: Result Comment: CUT- OFF POINTS HAVE BEEN ESTABLISHED BASED ON THE FOURTH UNIVERSAL DEFINITIONS OF MYOCARDIAL INFARCTION. THE UPPER REFERENCE LIMIT (URL) OF TROPONIN, DEFINED THE 99TH PERCENTILE OF cTnI DISTRIBUTION IN A REFERENCE POPULATION, HAS BEEN CONFIRMED THE DECISION THRESHOLD FOR [place] DIAGNOSIS. Performed By: #### H STROPN #### [facility] [address] [place] [address] Dr. Moreno Amato Troponin I.cardiac [Mass/vol ume] in Serum or Plasma by High sensitivity methodOrdered By: Alaina Arce on 08-13-2021 Troponin I.cardiac High sensitivity method [Mass/Vol] 50 pg/mL 0-15 [facility] Comment on above: Critical value result called at 1736 on 08/13/21 URINE MICROSCOPIC ONLYon BACTERIA SMALL Abnormal NONE SEEN [facility] Comment on above: Performed By: #### E RUR UMICRO #### [facility] [address] [place] [address] Dr. Moreno Amato Bacteria identified Cx Nom (U) INDICATED Normal [facility] Comment on above: Performed By: #### E RUR, UMICRO #### [facility] [address] [place] [address] Dr. Moreno Amato CAST SEEN Abnormal NONE SEEN [facility] Comment on above: Performed By: #### E RUR, UMICRO #### [facility] [address] [place] [address] Dr. Moreno Amato Crystals LM Nom (Urine sed) NONE SEEN Normal NONE SEEN [facility] Comment on above: Performed By: #### E RUR, UMICRO #### [facility] [address] [place] [address] Dr. Moreno Amato Epithelial cells LM Ql (Urine sed) FEW Abnormal NONE SEEN /RARE [facility] Comment on above: Performed By: #### E RUR, UMICRO #### [facility] [address] [place] [address] Dr. Moreno VASQUES CAST FEW Normal [facility] Comment on above: Performed By: #### E RUR, UMICRO #### [facility] [address] [place] [address] Dr. Moreno Amato MUCOUS NONE SEEN Normal NONE SEEN [facility] Comment on above: Performed By: #### E RUR, UMICRO #### [facility] [address] [address] [address] Moreno Amato RBC 2-5 Abnormal 0-2 [facility] Comment on above: Performed By: #### NAOMI FRANCISCO #### [facility] [address] [address] [address] Moreno Amato WBC 20-50 Abnormal NONE SEEN [facility] Comment on above: Performed By: #### NAOMI FRANCISCO #### [facility] [address] [address] [address] Moreno Amato Urine bacteria detection by automated methodOrdered By: Alaina Arce on 08-13-2021 Bacteria Auto Ql (U) None seen None Seen [facility] Urine clarity by refractomet ry automatedOrdered By: Alaina Arce on 08-13-2021 Clarity Refractometry automated (U) Cloudy Clear [facility] Urine culture routineOrdered By: Alaina Arce on 08-13-2021 Bacteria identified Cx Nom (U) 2 Days [facility] Urine glucose measurement by automated test strip (mass/volume)Ordered By: Alaina Arce on 08-13-2021 Glucose Auto test strip (U) [Mass/Vol] Normal mg/dL Normal [facility] Urine hemoglobin detection b y automated test stripOrdered By: Alaina Arce on 08-13-2021 Hemoglobin Auto test strip Ql (U) 1+ Negative [facility] Urine leukocyte esterase det ection by automated test stripOrdered By: Alaina Arce on 08-13-2021 Leukocyte esterase Auto test strip Ql (U) 1+ Negative [facility] Urobilinogen Auto test strip (U) [Mass/Vol]Ordered By: Alaina Arce on 08-13-2021 Urobilinogen (U) [Mass/Vol] Normal mg/dL Normal [facility] XR CHEST 1 Von 08-13-2021 [...] Vinay MANN Date: 2021-08-13 06:[address] [facility] pH Auto test strip (U)Ordere d By: Alaina Arce on 08-13-2021 pH (U) 5.5 [pH] 5.0-9.0 [facility] [place] DIGITAL SCREEN SELF REFERRAL W OR WO CAD BILATERALon 12-16-2020 [facility] [place] DIGITAL SCREEN SELF REFERRAL W [...] to the patient regarding the results. The [employer] recommends annual mammograms for women 40 years and older. Interpreted by: Uvaldo Read Signed by: Uvaldo Read 12/16/20 Final result Normal [facility] Vital Signs Date Time Vital Sign Value Performing Clinician Facility 02-14-2023 09:56-0500 Inhaled oxygen flow rate 1 L/min MD Shaikh Thompson Work Phone: [facility] 02-14-2023 08:00-0500 Body temperature 97.7 [degF] MD Shaikh Thompson Work Phone: [facility] 02-14-2023 08:00-0500 Diastolic blood pressure 69 mm[Hg] MD Shaikh Thompson Work Phone: [facility] 02-14-2023 08:00-0500 Heart rate 78 /min MD Shaikh Thompson Work Phone: [facility] 02-14-2023 08:00-0500 Respiratory rate 20 /min MD Shaikh Thompson Work Phone: [facility] 02-14-2023 08:00-0500 SaO2% (BldA) [Mass fraction] 95 % MD Shaikh Thompson Work Phone: [facility] 02-14-2023 08:00-0500 Systolic blood pressure 118 mm[Hg] MD Shaikh Thompson Work Phone: [facility] 02-14-2023 05:51-0500 Body weight 69.9 kg MD Shaikh Thompson Work Phone: [facility] 02-13-2023 12:53-0500 Body height 157.48 cm MD Shaikh Thompson Work Phone: [facility] 02-10-2023 17:00-0500 Heart rate 85 /min [facility] 02-10-2023 16:38-0500 Diastolic blood pressure 80 mm[Hg] [facility] 02-10-2023 16:38-0500 Heart rate 80 /min [facility] 02-10-2023 16:38-0500 Mean blood pressure 99 mm[Hg] [facility] 02-10-2023 16:38-0500 Respiratory rate 18 /min [facility] 02-10-2023 16:38-0500 SaO2% (BldA) [Mass fraction] 95 % [facility] 02-10-2023 16:38-0500 Systolic blood pressure 138 mm[Hg] [facility] 02-10-2023 15:40-0500 Diastolic blood pressure 92 mm[Hg] [facility] 02-10-2023 15:40-0500 Heart rate 90 /min [facility] 02-10-2023 15:40-0500 Mean blood pressure 105 mm[Hg] [facility] 02-10-2023 15:40-0500 Respiratory rate 20 /min [facility] 02-10-2023 15:40-0500 SaO2% (BldA) [Mass fraction] 94 % [facility] 02-10-2023 15:40-0500 Systolic blood pressure 132 mm[Hg] [facility] 02-10-2023 14:42-0500 Body temperature 98.24 [degF] [facility] 02-10-2023 14:42-0500 Heart rate 93 /min [facility] 02-10-2023 14:42-0500 Respiratory rate 24 /min [facility] 02-10-2023 14:00-0500 Blood Pressure Location Jaxson Johnson [facility] 02-10-2023 14:00-0500 Body temperature 96.8 [degF] Jaxson Johnson [facility] 02-10-2023 14:00-0500 Diastolic blood pressure 90 mm[Hg] Jaxson Johnson [facility] 02-10-2023 14:00-0500 Heart rate 88 /min Jaxson Johnson [facility] 02-10-2023 14:00-0500 SaO2% (BldA) [Mass fraction] 92 % Jaxson Johnson [facility] 02-10-2023 14:00-0500 Systolic blood pressure 140 mm[Hg] Jaxson Johnson [facility] 10-15-2022 17:36-0400 Blood Pressure Location Damion Cheek [facility] 10-15-2022 17:36-0400 Body temperature 97.34 [degF] Damion Cheek [facility] 10-15-2022 17:36-0400 Diastolic blood pressure 76 mm[Hg] Damion Cheek [facility] 10-15-2022 17:36-0400 Heart rate 60 /min Damion Robledopsey [facility] 10-15-2022 17:36-0400 SaO2% (BldA) [Mass fraction] 96 % Damion Cheek [facility] 10-15-2022 17:36-0400 Systolic blood pressure 122 mm[Hg] Damion Cheek [facility] 10-09-2022 14:24-0400 Body height 157.5 cm Gurmeet Ojeda MD Work Phone: [facility] 10-09-2022 14:24-0400 Body temperature 97.5 [degF] Gurmeet Ojeda MD Work Phone: [facility] 10-09-2022 14:24-0400 Body weight 71.26 kg Gurmeet Ojeda MD Work Phone: [facility] 10-09-2022 14:24-0400 Diastolic blood pressure 60 mm[Hg] Gurmeet Ojeda MD Work Phone: [facility] 10-09-2022 14:24-0400 Heart rate 60 /min Gurmeet Ojeda MD Work Phone: [facility] 10-09-2022 14:24-0400 Systolic blood pressure 91 mm[Hg] Gurmeet Ojeda MD Work Phone: [facility] 08-09-2022 14:56-0400 Body height 157.5 cm Gurmeet Ojeda MD Work Phone: [facility] 08-09-2022 14:56-0400 Body temperature 97.7 [degF] Gurmeet Ojeda MD Work Phone: [facility] 08-09-2022 14:56-0400 Body weight 72.53 kg Gurmeet Ojeda MD Work Phone: [facility] 08-09-2022 14:56-0400 Diastolic blood pressure 64 mm[Hg] Guremet Ojeda MD Work Phone: [facility] 08-09-2022 14:56-0400 Heart rate 65 /min Gurmeet Ojeda MD Work Phone: [facility] 08-09-2022 14:56-0400 Systolic blood pressure 98 mm[Hg] Gurmeet Ojeda MD Work Phone: [facility] 06-14-2022 12:57-0400 Blood Pressure Location Ayala SALAM [facility] 06-14-2022 12:57-0400 Diastolic blood pressure 74 mm[Hg] Ayala SALAM [facility] 06-14-2022 12:57-0400 Heart rate 80 /min Ayala SALAM [facility] 06-14-2022 12:57-0400 Respiratory rate 16 /min Ayala SALAM [facility] 06-14-2022 12:57-0400 Systolic blood pressure 118 mm[Hg] Ayala SALAM [facility] 06-06-2022 10:13-0400 Blood Pressure Location TRUDY NGUYỄN [facility] 06-06-2022 10:13-0400 Diastolic blood pressure 88 mm[Hg] TRUDY NGUYỄN [facility] 06-06-2022 10:13-0400 Heart rate 74 /min TRUDY NGUYỄN [facility] 06-06-2022 10:13-0400 Systolic blood pressure 144 mm[Hg] TRUDY NGUYỄN [facility] 05-23-2022 10:41-0400 Blood Pressure Location TRUDY NGUYỄN [facility] 05-23-2022 10:41-0400 Diastolic blood pressure 85 mm[Hg] TRUDY NGUYỄN [facility] 05-23-2022 10:41-0400 Heart rate 72 /min TRUDY NGUYỄN [facility] 05-23-2022 10:41-0400 Systolic blood pressure 127 mm[Hg] TRUDY NGUYỄN [facility] 04-11-2022 11:01-0500 Blood Pressure Location TRUDY NGUYỄN [facility] 04-11-2022 11:01-0500 Diastolic blood pressure 88 mm[Hg] TRUDY NGUYỄN [facility] 04-11-2022 11:01-0500 Heart rate 71 /min TRUDY NGUYỄN [facility] 04-11-2022 11:01-0500 Systolic blood pressure 146 mm[Hg] TRUDY ADRIAN [facility] 03-19-2022 16:35-0500 Body height 163.83 cm aPdmini Sam Other [employer] Other 03-19-2022 16:35-0500 Body mass index (BMI) [Ratio] 27.37 kg/m2 Padmini Sam Other [employer] Other 03-19-2022 16:35-0500 Body temperature 98.9 [degF] Padmini Sam Other [employer] Other 03-19-2022 16:35-0500 Body weight 73.48 kg Padmini Sam Other [employer] Other 03-19-2022 16:35-0500 Respiratory rate 18 /min Padmini Sam Other [employer] Other 03-19-2022 16:35-0500 SaO2% (BldA) [Mass fraction] 96 % Padmini Sam Other [employer] Other 03-13-2022 10:12-0500 Diastolic blood pressure 59 mm[Hg] MD Shaikh Thompson Work Phone: [facility] 03-13-2022 10:12-0500 Heart rate 77 /min MD Shaikh Thompson Work Phone: [facility] 03-13-2022 10:12-0500 Respiratory rate 18 /min MD Shaikh Thompson Work Phone: [facility] 03-13-2022 10:12-0500 SaO2% (BldA) [Mass fraction] 98 % MD Shaikh Thompson Work Phone: [facility] 03-13-2022 10:12-0500 Systolic blood pressure 93 mm[Hg] MD Shaikh Thompson Work Phone: [facility] 03-13-2022 07:54-0500 Body height 162.56 cm MD Shaikh Thompson Work Phone: [facility] 03-13-2022 07:54-0500 Body temperature 98 [degF] MD Shaikh Thompson Work Phone: [facility] 03-13-2022 07:54-0500 Body weight 73.48 kg MD Shaikh Thompson Work Phone: [facility] 03-12-2022 08:58-0500 Body height 160.02 cm Shaikh Donna Work Phone: [facility] 250 DO Work Phone: 03-12-2022 08:58-0500 Body mass index (BMI) [Ratio] 28.7 kg/m2 Shaikh Donna Work Phone: [facility] 250 DO Work Phone: 03-12-2022 08:58-0500 Body surface area Derived from formula 1.77 m2 Shaikh Donna Work Phone: [facility] 250 DO Work Phone: 03-12-2022 08:58-0500 Body weight 73.48 kg Shaikh Donna Work Phone: [facility] 250 DO Work Phone: 03-12-2022 08:58-0500 Diastolic blood pressure 78 mm[Hg] Shaikh Felysarah Work Phone: [facility] 250 DO Work Phone: 03-12-2022 08:58-0500 Heart rate 66 /min Shaikh Jabierwad Work Phone: [facility] 250 DO Work Phone: 03-12-2022 08:58-0500 Systolic blood pressure 110 mm[Hg] Shaikh Jabierwad Work Phone: [facility] 250 DO Work Phone: 01-23-2022 12:00-0500 72 1 Shaikh Jabierwad Work Phone: [facility] [facility] [place] Work Phone: Comment on above: [id number] 11-09-2021 13:26-0400 Body height 160.02 cm Shaikh Leoneld Work Phone: [facility] 600 DO Work Phone: 11-09-2021 13:26-0400 Body mass index (BMI) [Ratio] 27.83 kg/m2 Shaikh Jabierwad Work Phone: [facility] 600 DO Work Phone: 11-09-2021 13:26-0400 Body surface area Derived from formula 1.75 m2 Shaikh Jabierwad Work Phone: [facility] 600 DO Work Phone: 11-09-2021 13:26-0400 Body weight 71.27 kg Shaikh Jabierwad Work Phone: [facility] 600 DO Work Phone: 11-09-2021 13:26-0400 Diastolic blood pressure 82 mm[Hg] Shaikh Felywwad Work Phone: [facility] 600 DO Work Phone: 11-09-2021 13:26-0400 Heart rate 64 /min Shaikh Jabierwad Work Phone: [facility] 600 DO Work Phone: 11-09-2021 13:26-0400 Systolic blood pressure 128 mm[Hg] Shaikh Jabierwad Work Phone: [facility] 600 DO Work Phone: 09-18-2021 10:26-0400 Diastolic blood pressure 80 mm[Hg] Shaikh Jabierwad Work Phone: [facility] 250 DO Work Phone: 09-18-2021 10:26-0400 Systolic blood pressure 178 mm[Hg] Shaikh Jabierwad Work Phone: [facility] 250 DO Work Phone: 09-18-2021 10:19-0400 Body height 162.56 cm Shaikh Jabierwad Work Phone: [facility] 250 DO Work Phone: 09-18-2021 10:19-0400 Body mass index (BMI) [Ratio] 26.09 kg/m2 Shaikh Jabierwad Work Phone: [facility] 250 DO Work Phone: 09-18-2021 10:19-0400 Body surface area Derived from formula 1.74 m2 Shaikh Jabierwad Work Phone: [facility] 250 DO Work Phone: 09-18-2021 10:19-0400 Body weight 68.95 kg Shaikh Jabierwad Work Phone: [facility] 250 DO Work Phone: 09-18-2021 10:19-0400 Diastolic blood pressure 80 mm[Hg] Shaikh Leoneld Work Phone: [facility] [employer] 250 DO Work Phone: 09-18-2021 10:19-0400 Heart rate 60 /min Shaikh Leoneld Work Phone: [facility] 250 DO Work Phone: 09-18-2021 10:19-0400 Systolic blood pressure 180 mm[Hg] Shaikh Leoneld Work Phone: [facility] [employer] 250 DO Work Phone: 08-23-2021 14:00-0400 Body temperature 98.9 [degF] Linn Missler Other [employer] Other 08-23-2021 14:00-0400 Body weight 66.13 kg Linn Missler Other [employer] Other 08-23-2021 14:00-0400 Diastolic blood pressure 87 mm[Hg] Linn Missler Other [employer] Other 08-23-2021 14:00-0400 Respiratory rate 18 /min Linn Missler Other [employer] Other 08-23-2021 14:00-0400 SaO2% (BldA) [Mass fraction] 96 % Linn Missler Other [employer] Other 08-23-2021 14:00-0400 Systolic blood pressure 137 mm[Hg] Linn Missler Other [employer] Other 08-17-2021 12:00-0400 Diastolic blood pressure 94 mm[Hg] PHYSICIAN NO [facility] 08-17-2021 12:00-0400 Heart rate 78 /min PHYSICIAN NO [facility] 08-17-2021 12:00-0400 Respiratory rate 18 /min PHYSICIAN NO [facility] 08-17-2021 12:00-0400 SaO2% (BldA) [Mass fraction] 95 % PHYSICIAN NO [facility] 08-17-2021 12:00-0400 Systolic blood pressure 152 mm[Hg] PHYSICIAN NO [facility] 08-17-2021 08:00-0400 Body temperature 97.5 [degF] PHYSICIAN NO [facility] 08-17-2021 05:57-0400 Body weight 75.8 kg PHYSICIAN NO [facility] 08-17-2021 00:44-0400 Inhaled oxygen flow rate 2 L/min PHYSICIAN [facility] 08-16-2021 14:43-0400 Body height 162.56 cm PHYSICIAN NO [facility] 08-16-2021 14:43-0400 Body mass index (BMI) [Ratio] 25.6 kg/m2 PHYSICIAN NO [facility] Encounters Encounter Date Encounter Type Care [...] encounter procedure TRUDY ADRIAN [facility] [place] Start: 05-17-2023 End: 05-17-2023 ambulatory ROSIE Yevgeniy BLANCHARD Not Available Start: 05-13-2023 End: 05-13-2023 ambulatory SHAIKH DONNA Not Available Start: 03-12-2023 End: 03-12-2023 [facility] Start: 03-12-2023 End: 03-12-2023 ambulatory MD Shaikh Thompson Work Phone: [facility] Work Phone: Start: 03-12-2023 End: 03-12-2023 Patient encounter procedure MD Shaikh Thompson Work Phone: [facility] [place] Work Phone: Start: 03-12-2023 End: 03-12-2023 ambulatory [facility] Start: 02-19-2023 End: 02-19-2023 ambulatory SHAIKH DONNA Not Available Start: 02-12-2023 End: 02-14-2023 Evaluation and management of inpatient Jacques Grider Antionegurmeet Facility:[facility] Start: 02-12-2023 End: 02-14-2023 Evaluation and management of inpatient MD Shaikh Thompson Work Phone: [facility] Work Phone: Start: 02-10-2023 End: 02-10-2023 Lab Drop off Jaxson Johnson [facility] Start: 02-10-2023 End: 02-10-2023 Emergency department patient visit Lizethvinicio Nunez Alvino [facility] Start: 02-10-2023 End: 02-10-2023 ambulatory Jaxson Johnson Facility[facility] Start: 02-10-2023 End: 02-10-2023 Patient encounter procedure Jaxson Johnson [facility] Start: 01-30-2023 End: 01-30-2023 ambulatory TRUDY ADRIAN Facility:[facility] Start: 01-30-2023 End: 01-30-2023 Patient encounter procedure TRUDY ADRIAN [facility] Start: 10-29-2022 Orders Only Debra naik [...] End: 10-15-2022 Lab Drop off Damion Cheek [facility] Start: 10-15-2022 End: 10-15-2022 ambulatory Damion Cheek Facility:[facility] Start: 10-15-2022 End: 10-15-2022 Patient encounter procedure Damion Cheek [facility] Start: 10-15-2022 Rx Renewal Shaikh Donna Work Phone: [facility] 600 DO Work Phone: Start: 10-09-2022 End: 10-10-2022 ambulatory Rosie Harris DO Work Phone: [facility] [place] Start: 10-09-2022 End: 10-09-2022 Patient encounter procedure Gurmeet Ojeda MD Work Phone: [facility] Comment on above: Stage 3 chronic kidn ey disease, unspecified whether stage 3a or 3b CKD (HCC) (Primary Dx); Tobacco abuse; Hypertension, renal disease; Mixed hyperlipidemia; Atrophic kidney, acquired Start: 08-23-2022 End: 08-24-2022 ambulatory DEBRA FISHMAN [facility] Start: 08-09-2022 End: 08-09-2022 Patient encounter procedure Gurmeet Ojeda MD Work Phone: [facility] Comment on above: Stage 3b chronic kid domingo disease (HCC) (Primary Dx); Hypertension, unspecified type; Orthostatic hypotension; Alkalosis; Hypercholesteremia Start: 08-09-2022 End: 08-10-2022 ambulatory Debra Fishman MD Work Phone: [facility] Start: 06-19-2022 ambulatory SHAIKH Enrique THOMPSON Facilit y:[facility] Start: 06-14-2022 End: 06-14-2022 Patient encounter procedure Jamie BILLS [facility] Start: 06-12-2022 End: 06-13-2022 ambulatory SHAIKH Enrique THOMPSON Facility:[facility] Start: 06-06-2022 End: 06-06-2022 Patient encounter procedure TRUDY ADRIAN [facility] [place] Start: 05-23-2022 End: 05-23-2022 Patient encounter procedure TRUDY ADRIAN [facility] [place] Start: 04-30-2022 End: 05-01-2022 ambulatory SHAIKH Enrique THOMPSON Facility:[facility] Start: 04-11-2022 End: 04-11-2022 Patient encounter procedure TRUDY ADRIAN [facility] Start: 04-05-2022 End: 04-05-2022 ambulatory Kevyn Sharma Other [employer] Other Start: 04-05-2022 Telephone encounter Kevyn Carmichael ck [employer] Start: 03-27-2022 End: 03-28-[address] MARQUEZ BEAL Facility:[facility] Start: 03-19-2022 End: 03-19-2022 ambulatory Padmini Sam Other [employer] Other Start: 03-19-2022 Office outpatient vi sit 15 minutes Padmini Sam [facility] Start: 03-13-2022 End: 03-13-2022 Admission to same day surgery center MD Shaikh Thompson Work Phone: [facility] Work Phone: Start: 03-13-2022 End: 03-13-2022 ambulatory MD Shaikh Thompson Work Phone: [facility] Work Phone: Start: 03-12-2022 Office outpatient vi sit 25 minutes Shaikh Donna Work Phone: [facility] 250 DO Work Phone: Start: 02-26-2022 End: 02-26-[address] XAVIER STAFFORD . Facility:[facility] Start: 02-19-2022 End: 02-20-2022 ambulatory SHAIKH Enrique THOMPSON Facility:[facility] Start: 01-29-2022 Chart Update Shaikh Donna Work Phone: [facility] 600 DO Work Phone: Start: 01-23-[address] Marquez Beal II Facility:[id number] Start: 01-23-2022 Patient encounter procedure Shaikh Donna Work Phone: [facility] 250 DO Work Phone: Start: 11-16-2021 Rx Renewal Shaikh Donna Work Phone: [facility] 600 DO Work Phone: Start: 11-09-2021 ambulatory Marquez Beal II Facility: Start: 10-30-2021 End: 10-31-2021 ambulatory SHAIKH Enrique THOMPSON Facility:[facility] Start: 10-24-2021 Chart Update Shaikh Donna Work Phone: [facility] 250 DO Work Phone: Start: 10-17-[address] Marquez Beal II Facility:[id number] Start: 09-18-2021 ambulatory Marquez Beal II Facility: Start: 09-18-2021 Office outpatient vi sit 25 minutes Shaikh Donna Work Phone: [facility] 250 DO Work Phone: Start: 09-18-2021 End: 09-18-2021 Patient encounter procedure PHYSICIAN NO [facility] [place] Start: 09-18-2021 ambulatory Marquez Beal II Faci lity:[id number] Start: 08-23-2021 ([facility] CHUCK) [facility] Transition of Care [facility] Start: 08-23-2021 End: 08-23-2021 ambulatory [facility] Other [facility] [employer] Other Start: 08-23-2021 End: 08-23-2021 Patient encounter procedure PHYSICIAN NO [facility] Start: 08-17-2021 End: 08-17-2021 Patient encounter procedure PHYSICIAN NO [facility]-Electrodiagnostics Start: 08-17-2021 ambulatory Marquez Beal II Facility:[id number] Start: 08-16-[address] Jaycob Newman Facility:[id number] Start: 08-15-2021 ambulatory Marquez Beal II Facility:[id number] Start: 08-14-2021 ambulatory Marquez Beal II Facility:[id number] Start: 08-13-2021 End: 08-17-2021 Evaluation and management of inpatient PHYSICIAN NO [facility] Start: 08-13-2021 End: 08-13-2021 ambulatory Marquez Beal II Facility:[id number] Start: 12-08-2020 End: 12-11-2020 [facility] Start: 12-08-2020 End: 12-10-2020 Subsequent hospital visit by physician [facility] Comment on above: Encounter for screen [...] 3b CKD (HCC) Expected: 10/10/2023, Expires: 12/10/2023 [facility] Work Phone: Comment on above: Expected: 10/10/2023 , Expires: 12/10/2023 Start: 08-24-2023 SERUM CREATININE SERUM CREATININE Cl [facility] Start: 03-12-2023 FUV, Provider: Marquez Beal, Status: Pen, Time: 11:00 AM FUV, Provider: Marquez Beal, Status: Pen, Time: 11:00 AM -[facility] 250 DO Work Phone: Start: 02-14-2023 [facility] Start: 02-12-2023 Microbial culture of sputum [facility] Start: 02-12-2023 Aerobic microbial culture Aerobic Cu lture [facility] Start: 02-12-2023 Hospital admission [facility] Start: 02-12-2023 [facility] Start: 10-19-2022 Influenza [facility] Start: 08-09-2022 End: 10-09-2022 25-hydroxyvitamin D3 [Mass/volume] in Serum or Plasma VITAMIN D 25 HYDROXY Lab Routine Stage 3b chronic kidney disease (HCC) Expected: 08/09/2022, Expires: 10/09/2022 [facility] Work Phone: Comment on above: Expected: 08/09/2022 , Expires: 10/09/2022 Start: 08-09-2022 End: 10-09-2022 MONOCLONAL PROTEIN, SERUM (BLOOD) MONOCLONAL PROTEIN, SERUM (BLOOD) Lab Routine Stage 3b chronic kidney disease (HCC) Expected: 08/09/2022, Expires: 10/09/2022 [facility] Work Phone: Comment on above: Expected: 08/09/2022 , Expires: 10/09/2022 Start: 08-09-2022 End: 10-09-2022 Renal function 2000 panel - Serum or Plasma RENAL FUNCTION PANEL Lab Routine Stage 3b chronic kidney disease (HCC) Expected: 08/09/2022, Expires: 10/09/2022 [facility] Work Phone: Comment on above: Expected: 08/09/2022 , Expires: 10/09/2022 Start: 03-13-2022 [facility] Start: 03-12-2022 FUV, Provider: Marquez Beal, Status: Pen, Time: 8:30 AM FUV, Provider: Marquez Beal, Status: Pen, Time: 8:[address] [facility] [employer] 250 DO Work Phone: Start: 02-18-2022 DEPRESSION ASSESSMENT DEPRESSION ASS ESSMENT [facility] Start: 12-21-2021 FUV, Provider: Marquez Beal, Status: Pen, Time: 12:50 PM FUV, Provider: Marquez Beal, Status: Pen, Time: 12:50 PM -[facility] [employer] 600 DO Work Phone: Start: 12-08-2021 Mammography MAMMOGRAM [facility] Start: 11-22-2021 STRESS NUC, Provider : TRENA PAGEI NUCLEAR 01,[id number], Status: Pen, Time: 12:00 PM STRESS NUC, Provider: TRENA PAGEI NUCLEAR 01,[id number], Status: Pen, Time: 12:00 PM [facility] 600 DO Work Phone: Start: 11-22-2021 NURSEVST, Provider: KAYLEN ANAND JANITORIAL MANAGER 1,[id number], Status: Pen, Time: 10:30 AM NURSEVST, Provider: KAYLEN ANAND JANITORIAL MANAGER 1,[id number], Status: Pen, Time: 10:30 AM [facility] 600 DO Work Phone: Start: 11-09-2021 FUV, Provider: Marquez Beal, Status: Pen, Time: 1:10 PM FUV, Provider: Marquez Beal, Status: Pen, Time: 1:10 PM [facility] Work Phone: Start: 10-17-2021 STRESS IVAN, Provider : TRENA HHVI NUCLEAR 01,[id number], Status: Pen, Time: 2:00 PM STRESS IVAN, Provider: TRENA HHVI NUCLEAR 01,[id number], Status: Pen, Time: 2:00 PM [facility] 250 DO Work Phone: Start: 08-17-2021 [facility] Work Phone: Start: 08-14-2021 Referral to neurologist [facility] Work Phone: Start: 08-14-2021 Blood culture for bacteria, including anaerobic screen Blood Culture [facility] Start: 08-14-2021 [facility] Work Phone: Start: 08-13-2021 Ultrasonography of R ight and Left Heart, Transesophageal Ultrasonography of Right and Left Heart, Transesophageal [facility] Start: 08-13-2021 Hospital admission [facility] Work Phone: Start: 08-13-2021 Referral to student records coordinator [facility] Work Phone: Start: 03-27-2021 Colonoscopy COLONOSCOPY [facility] Start: 03-27-2021 COLORECTAL CANCER SCREENING COLORECTAL CANCER SCREENING [facility] Start: 03-11-2021 COVID-19 VACCINE (4 - Booster for Pfizer series) COVID-19 VACCINE (4 - Booster for Pfizer series) [facility] Start: 03-11-2021 COVID-19 VACCINE (4 - Pfizer series) COVID-19 VACCINE (4 - Pfizer series) [facility] Start: 02-07-2021 HPV TESTING HPV TESTING [facility] Start: 02-07-2021 PAP TESTING PAP TESTING [facility] Start: 10-19-2020 Influenza vaccination Flu vaccine (# 1) [employer] Phone: Start: 03-14-2017 HEMOGLOBIN/HEMATOCRIT HEMOGLOBIN/HEM ATOCRIT [facility] Start: 2012 Screening for malign ant neoplasm of breast [facility] Start: 2012 Shingles Vaccine (1 of 2) Herring gles Vaccine (1 of 2) [facility] [employer] Phone: Start: 2012 SHINGRIX VACCINE (1 of 2) HERRING GRIX VACCINE (1 of 2) [facility] Start: 05-12-2007 COLOGUARD (FIT-DNA) COLOGUARD (FIT-D NA) [facility] Start: 05-12-[address] COLONOGRAPHY [facility] Start: 05-12-2007 DIABETES SCREEN DIABETES SCREEN [facility] Start: 05-12-2007 FECAL OCCULT BLOOD FECAL OCCULT BLOO D [facility] Start: 05-12-2007 LIPID SCREEN LIPID SCREEN [facility] Start: 05-12-2007 Screening for malign ant neoplasm of colon Colon cancer screen colonoscopy [facility] [employer] Phone: Start: 05-12-2007 SIGMOIDOSCOPY SIGMOIDOSCOPY [facility] Start: 2002 Lipid panel [facility] [employer] Phone: Start: 1992 Screening for malign ant neoplasm of cervix [employer] Phone: Start: 05-12-1983 Screening for malign ant neoplasm of cervix Pap smear [employer] Phone: Start: 1981 DTaP/Tdap/Td vaccine (1 - Tdap) DTaP/Tdap/Td vaccine (1 - Tdap) [facility] Work Phone: Start: 1981 Urine microalbumin profile DTAP,TDAP,TD (1 - Tdap) [facility] Start: 1980 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 ZEFERINO DISEASE VISIT ANNUAL PCP TEAM CHRONIC DISEASE VISIT [facility] Start: 1980 HEPATITIS C SCREENING HEPATITIS C [facility] Start: 1980 HIV SCREENING HIV SCREENING [facility] Start: 1977 HIV screening HIV screen [facility] Work Phone: Start: 1962 Hepatitis [facility] Work Phone: Activated protein C resistance assay [facility] Work Phone: Antithrombin [Units/volume] in Platelet poor plasma by Chromogenic method [facility] Work Phone: aPTT.lupus sensitive (LA screen) [facility] Work Phone: aPTT.lupus sensitive W excess phospholipid actual/Normal (normalized LA confirm) [facility] Work Phone: aPTT.lupus sensitive/aPTT.lupus sensitive W excess phospholipid (screen to confirm ra [facility] Work Phone: Beta 2 glycoprotein 1 IgG Ab [Units/volume] in Serum [facility] Work Phone: Beta 2 glycoprotein 1 IgM Ab [Units/volume] in Serum [facility] Work Phone: Cardiolipin IgG Ab [Units/volume] in Serum by Immunoassay [facility] Work Phone: Cardiolipin IgM Ab [Units/volume] in Serum by Immunoassay [facility] Work Phone: dRVVT (LA screen) [facility] Work Phone: F2 gene mutations fo und [Identifier] in Blood or Tissue by Molecular genetics method Nominal [facility] Work Phone: Homocysteine [Moles/volume] in Serum or Plasma [facility] Work Phone: Lupus anticoagulant [Interpretation] in Platelet poor plasma [facility] Work Phone: End: 12-08-2020 BERTA KYARA DIGITAL SCREEN SELF REFERRAL W OR WO CAD BILATERAL BERTA KYARA DIGITAL SCREEN SELF REFERRAL W OR WO CAD BILATERAL Imaging Routine Encounter for screening mammogram for malignant neoplasm of breast 1 Occurrences starting 12/08/2020 until 12/08/2020 [facility] Work Phone: Comment on above: 1 Occurrences starti ng 12/08/2020 until 12/08/2020 BERTA KYARA DIGITAL SCR EEN SELF REFERRAL W OR WO CAD BILATERAL BERTA KYARA DIGITAL SCREEN SELF REFERRAL W OR WO CAD BILATERAL Imaging Routine Encounter for screening mammogram for malignant neoplasm of breast 12/08/2020 1:30 PM EDT [facility] Work Phone: Patient Education [facility] Work Phone: Patient referral [facility] Work Phone: Plasminogen assay [facility] Work Phone: Protein C actual/nor mal in Platelet poor plasma by Chromogenic method [facility] Work Phone: Protein S Free Ag [Units/volume] in Platelet poor plasma by Immunoassay [facility] Work Phone: Renin [Enzymatic activity/volume] in Plasma [facility] Work Phone: End: 09-08-2023 US KIDNEY/BLADDER US KIDNEY/BLADDER Radiology Routine Stage 3b chronic kidney disease (HCC) 1 Occurrences starting 08/09/2022 until 09/08/2023 [facility] Work Phone: Comment on above: 1 Occurrences starti ng 08/09/2022 until 09/08/2023 [facility] Immunizations Immunization Date Immunization Notes Care Provider Fely shirley 01-14-2021 Pfizer-BioNTech COVI D-19 Vacc 30 MCG/0.3ML Intramuscular Suspension Shaikh Donna Work Phone: [facility] Joe Comment on above: Result Comment: 2022: [id number] 06-25-2020 Pfizer-BioNTech COVI D-19 Vacc 30 MCG/0.3ML Intramuscular Suspension Shaikh Leonelyevgeniy Work Phone: [facility] Comment on above: Reason for Medicatio n: Prophylaxis 06-04-2020 Pfizer-BioNTech COVI D-19 Vacc 30 MCG/0.3ML Intramuscular Suspension Shaikh Felysarah Work Phone: [facility] Comment on above: Reason for Medicatio n: Prophylaxis Payers Date Payer Category Payer Self-pay [id number] 2022 Medicaid [id number] 1960 Unknown [id number] 2.16.8 40.1.002586.3.579.2.1068 1962 Unknown [id number] 2.16.8 40.1.361400.3.579.2.1068 1962 Unknown [id number] 2.16. 840.1.526351.3.579.2.356 1960 Unknown [id number] 2.16 840.1.561502.3.579.2.356 1962 Unknown [id number] 2.16. 840.1.638416.3.579.2.356 1962 Unknown [id number] 2.16. 840.1.363606.3.579.2.356 1962 Unknown [id number] 2.16. 840.1.145239.3.579.2.356 1962 Unknown [id number] 2.16. 840.1.680122.3.579.2.356 1962 Unknown [id number] 2.16. 840.1.784974.3.579.2.356 1962 Unknown [id number] 2.16. 840.1.191248.3.579.2.356 1962 Unknown [id number] 2.16. 840.1.662649.3.579.2.356 1962 Unknown [id number] 2.16. 840.1.463158.3.579.2.356 1962 Unknown [id number] 2.16. 840.1.752896.3.579.2.356 1962 Unknown [id number] 2.16.84 0.1.291599.3.579.2.593 1962 Unknown [id number] 2.16.84 0.1.353336.3.579.2.593 1962 Unknown [id number] 2.16.84 0.1.189330.3.579.2.593 1962 Unknown [id number] 2.16.84 0.1.830462.3.579.2.593 1962 Unknown [id number] 2.16.84 0.1.264028.3.579.2.593 1962 Unknown [id number] 2.16.84 0.1.975293.3.579.2.593 1962 Unknown [id number] 2.16.84 0.1.243830.3.579.2.593 1962 Unknown [id number] 2.16.84 0.1.423164.3.579.2.593 1962 Unknown [id number] 2.16.84 0.1.698171.3.579.2.1259 1962 Unknown [id number] 2.16.84 0.1.383731.3.579.2.1259 1962 Unknown [id number] 2.16.84 0.1.233790.3.579.2.1259 1962 Unknown [id number] 2.16.84 0.1.369617.3.579.2.1259 1962 Unknown [id number] 2.16.84 0.1.299079.3.579.2.1259 1962 Unknown [id number] 2.16.84 0.1.900819.3.579.2.1259 1962 Unknown [id number] 2.16.840 .1.668193.3.579.2.1259 1962 Unknown [id number] 2.16.8 40.1.243919.3.579.2.727 1962 Unknown [id number] 2.16.8 40.1.467403.3.579.2.727 1962 Unknown [id number] 2.16.8 40.1.431588.3.579.2.727 1962 Unknown [id number] 2.16.8 40.1.675712.3.579.2.727 1962 Unknown [id number] 2.16.8 40.1.121303.3.579.2.727 1962 Unknown [id number] 2.16.8 40.1.049565.3.579.2.727 1962 Unknown [id number] 2.16.8 40.1.639534.3.579.2.727 1962 Unknown [id number] 2.16.8 40.1.521929.3.579.2.727 1962 Unknown [id number] 2.16.8 40.1.138505.3.579.2.1244 1957 Medicaid [id number] 30 [id number] Unknown [facility] [id number] Unknown Unknown [id number] 2.16.8 40.1.113688.3.579.2.531 Unknown [id number] 2.16.8 40.1.030992.3.579.2.531 Social History Date Type Detail Facility Start: 12-08-2020 Tobacco smoking stat us [facility] Unknown if ever smoked [facility] Work Phone: Start: 1960 Sex Assigned At Not on file M [employer] Work Phone: Start: 08-16-2021 End: 08-09-2022 Tobacco smoking status NHIS Ex-smoker (finding) [facility] Start: 08-09-2022 End: 10-09-2022 History of tobacco use [facility] Start: 1960 Sex Assigned At Female F [facility] Start: 08-09-2022 End: 10-09-2022 Daily caffeine consumption Daily caffeine consumption [facility] 250 DO Work Phone: Comment on above: 1 CUP OF COFFEE; 2 CIGS DAILY; quit 2021; Start: 04-11-2022 End: 10-15-2022 Tobacco smoking status Heavy tobacco smoker (finding) [facility] Tobacco smoking status Never [facility] Start: 02-12-2023 End: 08-18-2017 History of tobacco use Current smoker [facility] End: 08-18-2017 History of tobacco use Cigarette Smoker [facility] Start: 08-09-2022 Tobacco use and exposure Smokeless tobacco non-user [facility] Start: 08-09-2022 Alcohol intake Current drinke r of alcohol (finding) [facility] Start: 10-09-2022 Alcohol intake Ex-drinker (finding) [facility] Start: 02-10-2023 Tobacco smoking status Light t obacco smoker (finding) [facility] Goals Date Patient Goal Desired Activity /State Functional Status Date Assessment Result Facility 02-14-2023 Functional status Patient at Baseline [facility] Work Phone: 02-10-2023 Functional Status N/A [facility] 10-15-2022 Functional Status N/A [facility] 06-14-2022 Functional Status N/A [facility] 06-06-2022 Functional Status N/A [facility] 05-23-2022 Functional Status N/A [facility] 04-11-2022 Functional Status N/A [facility] 08-17-2021 Functional status Patient at Baseline [facility] Work Phone: Mental Status Date Assessment Result Facility 02-14-2023 Cognitive function Cognitive Sta tus Patient at Baseline [facility] Work Phone: 08-17-2021 Cognitive function Cognitive Sta tus Patient at Baseline [facility] Work Phone: Clinical Notes 01-18-2010 to 02-14-2023 Note Date & Type Note Facility 02-14-2023 Discharge summary Note Date/Time February 14, 2023 12:53pm [facility] [address] [place] [address] Discharge Summary Signed Patient: Deysi Hernandez MR#: [id number] : 1960 Acct:[id number] Age/Sex: 62 / F Adm Date: 3 Loc: Room: [address] [place] [address]: Jacques East MD Copies to: [...] PMHx of CKD presented to [facility] with shortness of breath and was transferred to [facility] due to elevated troponins. Patient [...] % (Auto) 87.6, Lymph % (Auto) 7.6, Bullitt % (Auto) 4.7, Eos % (Auto) 0.0, Baso % (Auto) 0.1, Nucleat RBC Rel Count 0.0, Neut # (Auto) 11.1 H, Lymph #(Auto) 1.0, Bullitt # (Auto) 0.6, Eos # (Auto) 0.0, [...] <Electronically signed by Jacques East MD> 02/14/23 4818 [facility] Work Phone: 1(321) 771-157912-28-2023 Progress note Author Jacques East [facility] February 14, 2023 12:45pm Note Date/Time February 14, 2023 7:29am [facility] [address] [place] [address] Hospitalist Progress Note Signed Patient: Deysi Hernandez MR#: [id number] : 1960 Acct:[id number] Age/Sex: 62 / F Adm Date: 3 Loc: Room: [address] [place] [address] Type: ADM IN Attending Dr: Jacques East [...] signed by Jacques East MD> 02/14/23 1245 [facility] Work Phone: 1(954) 709-619812-27-2023 Progress note Author Jacques East [facility] February 13, 2023 10:47am Note Date/Time February 13, 2023 10:40am [facility] [address] [place] [address] Hospitalist Progress Note Signed Patient: Deysi Hernandez MR#: [id number] : 1960 Acct:[id number] Age/Sex: 62 / F Adm Date: 3 Loc: 3T Room: [address] [place] [address] Type: ADM IN Attending Dr: Jacques East [...] creatinine clearance -Trending downward from 80s at [facility] to 70s here. repeat trop 43, flat [...] <Electronically signed by Jacques East MD> 02/13/23 1046 [facility] Work Phone: 1(662) 959-802612-26-2023 History and physical note Author Jacques East [facility] February 12, 2023 11:26am Note Date/Time February 12, 2023 9:53am [facility] [address] [place] [address] Hospitalist H&P Signed Patient: Deysi Hernandez MR#: [id number] : 1960 Acct:[id number] Age/Sex: 62 / F Adm Date: 3 Loc: Room: [address] [place] [address] Type: ADM INOo Attending Dr: Jacques East MD Copies to: Geneva Rivas DO, RES MD Shaikh Donna Piña MD~ HPI DATE OF EXAMINATION: 02/12/23 CHIEF COMPLAINT: Shortness of breath HISTORY OF PRESENT ILLNESS: Patient is a 62 year old female with PMHx of CKD presented to [facility] with shortness of breath and was transferred to [facility] due to elevated troponins. Patient [...] troponin 70.6 (down from 87 yesterday at [facility]). Review of Systems Review of Systems All other systems reviewed & are negative unless noted below or in HPI Review of systems: 10 systems are reviewed and are negative except as mentioned elsewhere in the documentation [facility] Medical History CKD (chronic kidney disease) stage 3, GFR 30-59 ml/min Embolic cerebrovascular disease High cholesterol Problem List clean-up per request of Phys. EHR Cmte Hypertension Problem List clean-up per request of Phys. [facility] Family History Father Myocardial infarction [...] % (Auto) 4.0 % (.) 02/12/23 06:41 Bullitt % (Auto) 1.8 % (.) 02/12/23 06:41 Eos % (Auto) 0.0 % (.) 02/12/23 06:41 Baso % (Auto) 0.2 % (.) 02/12/23 06:41 Nucleat RBC Rel Count 0.1 /100 WBC (0-0.5) 02/12/23 06:41 Neut # (Auto) 14.1 x10E3/uL (1.8-7.7) H 02/12/23 06:41 Lymph # (Auto) 0.6 x10E3/uL (1.00-4.8) L 02/12/23 06:41 Bullitt # (Auto) 0.3 x10E3/uL (0.0-0.8) 02/12/23 06:41 [...] creatinine clearance -Trending downward from 80s at [facility] to 70s here. Will trend it again. [...] signed by Jacques East MD> 02/12/23 1126 [facility] Work Phone: 1(121) 155-172612-24-2023 Hospital Discharge instructions Patient Education 02/10/2023 17:12:09 Urinary Tract Infection, Adult, Uwbz-qa-Adae Urinary Tract Infection, Adult A urinary tract [...] Follow these instructions at home: Medicines Take fhip-plx-dabvhvi and prescription medicines only as told by [...] provider. Document Revised: 09/16/2020 Document Reviewed: 09/16/2020 [employer] Patient Education 2022 [employer]. 02/10/2023 17:12:09 Acute Bronchitis, Adult Acute Bronchitis, [...] condition. Follow these instructions at home: Take lfkm-ydq-ihvvuow and prescription medicines only as told by [...] and water are not available, use hand gold tooler. Avoid contact with people who have cold [...] it is easier to cough up. Take hgut-hne-dhapavr and prescription medicines only as told by [...] provider. Document Revised: 05/17/2022 Document Reviewed: 06/07/2021 [employer] Patient Education 2022 [employer] Follow Up Care 02/10/2023 14:38:40 With:SHAIKH DONNA Address: [address] [place] [phone] Business (1) When:02/13/2023 16:16:37 Comments:Follow-up with your primary care provider in 3 to 5 days. If symptoms worsen, do not improve, or new symptoms arise please report back to emergency department for further evaluation. [facility]12-24-2023 Evaluation + Plan note Diagnostic Tests Pending * Urine Culture 02/10/23 [facility]12-24-2023 Evaluation + Plan noteExtracted from: Title:ED [...] day(s), # 14 cap(s), Refills(s) 0, [id number], 163, cm, 02/10/23 14:52:00 EST, Height/Length Dosing, 70, kg, 02/10/23 14:52:00 EST, Weight Dosing predniSONE, 60 mg = 3 tab(s), Oral, Daily, X 5 day(s), # 15 tab(s), Refills(s) 0, [id number], 163, cm, 02/10/23 14:52:00 EST, Height/Length [...] Troponin 3 Hr. XR Chest Single View [facility]09-12-2023 Evaluation note* Diagnosis Stage 3 chronic kidney disease, unspecified whether stage 3a or 3b CKD (HCC) documented in this encounter [facility]09-11-2023 NoteHNO ID: [id number] Author: Debra Fishman MD Service: ? Author Type: Physician Type: Progress Notes Filed: 10/29/2022 9:00 PM Note Text: Patient contacted me regarding high blood pressure in 150-160 mmHg at home. We agreed to increase lisinopril back to 10 mg daily, updated prescription sent to pharmacy on file. Debra Fishman MD Staff, Department of Kidney Medicine 10/29/22 9:00 [facility]09-11-2023 History of Present illness Narrative * Debra Fishman MD - 10/29/2022 8:59 PM EDT Patient contacted me regarding high blood pressure in 150-160 mmHg at home. We agreed to increase lisinopril back to 10 mg daily, updated prescription sent to pharmacy on file. Debra Fishman MD Staff, Department of Kidney Medicine 10/29/22 9:00 PM documented in this encounterUniversity [facility]09-[facility]-2023 Miscellaneous Notes* Telephone Encounter - [...] question. I will also send her a [employer] message encouraging communicate via [employer] if needed. Debra Fishman MD Staff, Department of Kidney Medicine 10/26/22 5:49 PM documented in this encounterUniversity [facility]als [facility]09-07-2023 Miscellaneous Notes* Telephone Encounter - Linn Solis Ma - 10/25/2022 12:32 PM EDT Patient called the office very upset because today at here appointment with Kidney Medicine she wasseen by another provider and it wasn't her kidney doctor. She would like Dr. Fishman call her back at [phone] because she has lots of questions that the patient wants answers to and the patient is requesting that the provider calls her back after 5:30 pm due to the patient works that late Saturday thru Saturday documented in this encounterUniversity Hospitals [facility]08-28-2023 Hospital Discharge instructions Patient Education [...] Department of Health and Human Services: www.smokefree.gov [place] [employer]: www.freedomfromsmoking.org [place] Heart Association: www.heart.org Where to find more [...] provider. Document Revised: 02/06/2022 Document Reviewed: 02/06/2022 [employer] Patient Education 2022 [employer]. 10/15/2022 18:04:53 Steps to Quit Smoking Steps [...] require a prescription. You can also purchase dlcv-lrl-haiivss medicines. Medicines may have nicotine in them [...] and encouragement. Call telephone quitlines, such as 0-852-VORQ-NOW, reach out to support groups, or work [...] provider. Document Revised: 01/26/2022 Document Reviewed: 01/26/2022 [employer] Patient Education 2022 [employer]. 10/15/2022 18:04:51 BMI for Adults BMI for [...] numbers. This can be done either in [place] ([place] or metric measurements. Note that charts and online BMI calculators are available to help you find your BMI quickly and easily without having to do these calculations yourself. To calculate your BMI in [place] ([place] measurements: 1.Measure your weight in pounds [...] Centers for Disease Control and Prevention: www.cdc.gov [place] Heart Association: www.heart.org National Heart, Lung, and Blood [place]: www.nhlbi.nih.gov Summary Body mass index (BMI) is a number that is calculated from a person's weight and height. BMI may help estimate how much of a person's weight is composed of fat. BMI can help identify thosewho may be at higher risk for certain medical problems. BMI can be measured using [place]an measurements or metric measurements. BMI charts are used to identify whether you are underweight, normal weight, overweight, or obese. This information is not intended to replace advice given to you by your health care provider. Make sure you discuss any questions you have with your health care provider. Document Revised: 10/28/2019 Document Reviewed: 09/04/2019 [employer] Patient Education 2022 [employer]. 10/15/2022 18:04:48 Urinary Tract Infection, Adult Urinary [...] Treatment for this condition includes: Antibiotic medicine. Fcyn-kuj-szcnalu medicines to treat discomfort. Drinking enough water [...] Follow these instructions at home: Medicines Take wssw-kml-lgemhtw and prescription medicines only as told by [...] provider. Document Revised: 09/16/2020 Document Reviewed: 09/16/2020 [employer] Patient Education 2022 [employer]. 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 Author Type: Physician Type: Progress Notes Filed: 10/09/2022 5:08 PM Note Text: [facility] [...] CKD, ESRD, hearing loss. 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, currently 0.75 pack per day butsmoked [...] Rosie Harris DO documented in this encounterCleveland [id number] NotePatient Outreach (ELPIDIO) DEYSI HERNANDEZ ([id number]) 1960 F Date Time Provider Department 10/09/22 ROSIE HARRIS During your visit today, we recorded the following information about you: Allergies As of Date: 10/09/2022 Noted Allergy Reaction CODEINE 09/07/2014 7 - Swelling Date Reviewed: 10/09/2022 Reviewed by: Rosie Harris DO - Fully Assessed Visit Diagnosis:Screening for genitourinary condition [Z13.89] Order(s):URINALYSIS, REFLEX MICROSCOPIC [XBT7685] Order #: [id number]. #:[id number] Prescriptions as of 10/12/2022 - lisinopril (ZESTRIL) [...] Mixed hyperlipidemia [E78.2] 10/09/2022 Encounter Status:Closed by [employer] AtempoYESENIA on 10/12/22[facility] 08-23-2022 NoteHNO ID: [id number] Author: Carine Farris RDMS Service: ? Author [...] Carine Farris RDMS August 23, 2022 2:23 [id number] NoteHNO ID: [id number] Author: Debra Fishman MD Service: ? Author Type: Physician Type: Progress Notes Filed: 08/09/2022 7:02 PM Note Text: [facility] [...] CKD, ESRD, hearing loss. 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 butsmoked [...] Staff, Department of Kidney Medicine Pager # [phone] August 09, 2022 6:58 PM documented in this encounterUniversity Hospitals Geauga [facility] Center06-22-2023 NotePatient Outreach (KIDMMN) DEYSI HERNANDEZ ([id number]) 1960 F Date Time Provider Department 08/09/22 DEBRA FISHMAN During your visit today, we recorded the following information about you: Allergies As of Date: 08/09/2022 Noted Allergy Reaction CODEINE 09/07/2014 7 - Swelling Date Reviewed: 08/09/2022 Reviewed by: Paulo Holbrook MA - Fully Assessed Visit Diagnosis:Screening for genitourinary condition [Z13.89] Order(s):URINALYSIS, REFLEX MICROSCOPIC [[id number]] Order #: [id number]. #:[id number] Prescriptions as of 08/13/2022 - aspirin, enteric [...] for malignant neoplasm *03/27/2016 Encounter Status:Closed by VocalizeLocalDIANDRA on 08/13/22[facility] 06-06-2022 Hospital Discharge instructions Patient [...] your health care provider. General instructions Take zvxc-sfo-abfcefv and prescription medicines only as told by [...] Document Reviewed: 10/24/2020 [employer] Patient Education 2022 [employer]. [facility] 04-05-2023 Hospital Discharge instructions [...] Document Reviewed: 09/24/2018 [employer] Patient Education 2020 [employer]. [facility] 02-22-2023 Hospital Discharge instructions [...] 01/21/2013 Document Revised: 09/24/2018 Document Reviewed: 09/24/2018 [employer] Patient Education 2020 [employer]. Follow Up Care 02/28/2022 14:28:28 With:NGUYỄN BRIDGES, TRUDY Goldsmith, URL Address: [address] [place] [address] When: Unknown [facility] Joe 01-30-2023 Evaluation note* Encounter [...] concerns Feb, Sore throat (ICD-10 - J02.9) [facility] Other 01-24-2023 Procedure [facility]07-06-2022 Evaluation note* Encounter Date Diagnosis Assessment [...] risk of hypotension. Patient also educated on [employer] as patient does not have prescription insurance. Advised patient on proper assessment of blood pressure at home. Time spent with patient: 10 minutes Seen by: Akil Collins, PharmD, BCACP [employer] Other 06-29-2022 Progress note Author Ricky Reynoso [facility] August 16, 2021 6:37pm Note Date/Time August 16, 2021 6:37 pm [facility] [address] [place] [address] Hospitalist Progress Note Signed Patient: Deysi Hernandez MR#: [id number] : 1960 Acct:[id number] Age/Sex: 61 / F Adm Date: 2 Loc: Room: [address] [place] [address] Type : ADM IN Attending Dr: Ricky [...] Benzocaine 1 applic 08/16/21 15:00 Benzocaine 20% [place] 57 Gm Can MUCOUS MEM ONCE PRN [...] culture have been pending, urine culture at [place] showed mixed zoe, since patient presented with [...] <Electronically signed by Ricky Reynoso DO> 08/16/211836 [facility] Work Phone: 1(795) 308-606306-29-2022 Progress note Author Rober Wyatt [facility] August 16, 2021 5:13pm Note Date/Time August 16, 2021 8:17 am [facility] [address] [place] [address] Neurology Progress Note Signed Patient: Deysi Hernandez MR#: [id number] : 1960 Acct:[id number] Age/Sex: 61 / F Adm Date: 2 Loc: Room: [address] [place] [address] Type : ADM IN Attending Dr: Ricky [...] 4 extremities and symmetric CEREBELLAR EXAM: * Rimnms-bm-rddx and alternating movements are intact and normal in bilateral upper extremities * Bxno-je-ycom and alternating movements are intact and normal [...] Patient presented to the emergency room at [facility] with abdominal pain and was noted to have acute kidney injury and evidence of pyelonephritis and elevated troponin with EKG changes. She was transferred to [facility] for further evaluation. She is [...] <Electronically signed by Rober Wyatt DO> 08/16/21 6164 [facility] Work Phone: 1(656) 816-119106-29-2022 Progress note Author Marquez Beal [facility] August 16, 2021 10:47am Note Date/Time August 16, 2021 10:4 4am [facility] [address] [place], [place] [address] Cardiology Progress Note Signed Patient: Deysi Hernandez MR#: [id number] : 1960 Acct:[id number] Age/Sex: 61 / F Adm Date: 2 Loc: Room: [address] [place] [address] Type : ADM IN Attending Dr: Ricky [...] % (Auto) 70.9 Lymph % (Auto) 18.6 Bullitt % (Auto) 9.4 Eos % (Auto) 0.4 Baso % (Auto) 0.7 Neut # (Auto) 7.7 Lymph # (Auto) 2.0 Bullitt # (Auto) 1.0 H Eos # (Auto) [...] mg daily. Documented By: Marquez Beal MD 104 Signed By: <Electronically signed by MD Marquez Beal> 08/16/21 1043 [facility] Work Phone: 1(183) 944-980906-28-2022 Consult note Author Rober Wyatt [facility] August 15, 2021 5:40pm Note Date/Time August 15, 2021 8:42 am [facility] [address] [place] [address] Neurology Consult Note Signed Patient: Deysi Hernandez MR#: [id number] : 1960 Acct:[id number] Age/Sex: 61 / F Adm Date: 2 Loc: Room: [address] [place] [address] Type : ADM IN Attending Dr: Alaina Arce MD Copies to: DO Janet Richter ANP-C Kanika Ahuja, MD NO FAMILY PHYSICIAN~ HPI Consult Date: 08/15/21 [employer]: MAURICIO Rose with Dr Wyatt Reason for consult: Stroke Consult Narrative HPI: Patient is a 61-year-old female with unknown medical history. She was admitted to the hospital on 08/13/2021 after presenting to the emergency room with abdominal pain that been present for approximately 1 week associated with nauseaand vomiting. Patient presented to the emergency room in [place] and found to have significant hypertension and [...] head was nonacute. She was transferred to [facility] for further evaluation and management. [...] 4 extremities and symmetric CEREBELLAR EXAM: * Dqsiif-pb-xqgq and alternating movements are intact and normal in bilateral u pper extremities * Zhce-ff-goyq and alternating movements are intact and normal [...] Christopher Ceja M.D.08/14/2021 4:57 PM Dictation Location: [place] [address] Therapy Recommendations Therapy Recommendations: OT Recommendations OT [...] Patient presented to the emergency room at [facility] with abdominal pain and was noted to have acute kidney injury and evidence of pyelonephritis and elevated troponin with EKG changes. She was transferred to [facility] for further evaluation. She is [...] profile laboratory studies Documented By: LESLEY Bustillo 0810 Signed By: <Electronically signed by LESLEY Hamm> 08/15/21 1025 <Electronically signed by Rober Wyatt DO> 08/15/21 1740 [facility] Work Phone: 1(360) 647-966806-28-2022 Progress note Author Marquez Beal [facility] August 15, 2021 4:25pm Note Date/Time August 15, 2021 4:25 pm [facility] [address] [place] [address] Cardiology Progress Note Signed Patient: Deysi Hernandez MR#: [id number] : 1960 Acct:[id number] Age/Sex: 61 / F Adm Date: 2 Loc: Room: [address] [place] [address] Type : ADM IN Attending Dr: Alaina [...] MPV Neut % (Auto) Lymph % (Auto) Bullitt % (Auto) Eos % (Auto) Baso % (Auto) Neut # (Auto) Lymph # (Auto) Bullitt # (Auto) Eos # (Auto) Baso # [...] % (Auto) 82.8 Lymph % (Auto) 8.6 Bullitt % (Auto) 7.9 Eos % (Auto) 0.1 Baso % (Auto) 0.6 Neut # (Auto) 11.6 H Lymph # (Auto) 1.2 Bullitt # (Auto) 1.1 H Eos # (Auto) [...] <Electronically signed by MD Marquez Beal> 08/15/21 1623 [facility] Work Phone: 1([phone]) 413-486406-28-2022 Progress note Author Alaina Arce [facility] August 15, 2021 10:27am Note Date/Time August 15, 2021 10:2 7am [facility] [address] [place] [address] Hospitalist Progress Note Signed Patient: Deysi Hernadnez MR#: [id number] : 1960 Acct:[id number] Age/Sex: 61 / F Adm Date: 2 Loc: 3T Room: 7M8083-1 Type : ADM IN Attending Dr: Alaina Arce MD Copies to: ~ Date of Service: 08/15/2021 Subjective Subjective Narrative: Patient is 61-year-old female with no previous known medical history GERD transferred from [place] for further management of abdominal pain. Patient [...] a week ago, patient initially went to [place] ER, was found to have blood pressure [...] showed changes similar to 1 done in [place], Labs at [facility], potassium 3.1, creatinine 1.92, bloodglucose [...] 1,000 Ml IV 08/13/22 10:59 75 mls/hr .[id number] ESTEBAN Administration Metoprolol Succinate 50 mg 08/15/21 [...] culture have been pending, urine culture at [place] showed mixed zoe, since patient presented with [...] signed by Alaina Arce MD> 08/15/21 1027 [facility] Work Phone: [phone]) 263-552506-27-2022 Progress note Author Bong Bansal [facility] August 14, 2021 6:15pm Note Date/Time August 14, 2021 4:52 pm [facility] [address] [place] [address] Event Note Signed Patient: Deysi Hernandez MR#: [id number] : 1960 Acct:[id number] Age/Sex: 61 / F Adm Date: 2 Loc: Room: [address] [place] [address] Type : ADM IN Attending Dr: Alaina [...] <Electronically signed by Bong Bansal MD> 08/14/21 2049 [facility] Work Phone: 1([phone]) 424-547606-27-2022 Progress note Author Marquez Beal [facility] August 14, 2021 3:21pm Note Date/Time August 14, 2021 3:21 pm [facility] [address] [place] [address] Cardiology Progress Note Signed Patient: Deysi Hernandez MR#: [id number] : 1960 Acct:[id number] Age/Sex: 61 / F Adm Date: 2 Loc: Room: [address] [place] [address] Type : ADM IN Attending Dr: Alaina [...] % (Auto) 64.9 Lymph % (Auto) 26.5 Bullitt % (Auto) 7.3 Eos % (Auto) 0.6 Baso % (Auto) 0.7 Neut # (Auto) 6.8 Lymph # (Auto) 2.8 Bullitt # (Auto) 0.8 Eos # (Auto) 0.1 [...] MPV Neut % (Auto) Lymph % (Auto) Bullitt % (Auto) Eos % (Auto) Baso % (Auto) Neut # (Auto) Lymph # (Auto) Bullitt # (Auto) Eos # (Auto) Baso # [...] <Electronically signed by MD Marquez Beal> 08/14/21 1528 [facility] Work Phone: [phone]) 983-653606-27-2022 Progress note Author Alaina Arce [facility] August 14, 2021 10:48am Note Date/Time August 14, 2021 10:4 4am [facility] [address] [place] [address] Hospitalist Progress Note Signed Patient: Deysi Hernandez MR#: [id number] : 1960 Acct:[id number] Age/Sex: 61 / F Adm Date: 2 Loc: Room: [address] [place] [address] Type : ADM IN Attending Dr: Alaina Arce MD Copies to: ~ Date of Service: 08/14/2021 Subjective Subjective Narrative: Patient is 61-year-old female with no previous known medical history GERD transferred from [place] for further management of abdominal pain. Patient [...] a week ago, patient initially went to [place] ER, was found to have blood pressure [...] showed changes similar to 1 done in [place], Labs at [facility], potassium 3.1, creatinine 1.92, bloodglucose [...] 1,000 Ml IV 08/13/22 10:59 75 mls/hr .[id number] ESTEBAN Administration Metoprolol Tartrate 25 mg 08/13/21 [...] culture negative, will get culture report from [place] Patient has significantly improved, continue Rocephin, will [...] signed by Alaina Arce MD> 08/14/21 1048 [facility] Work Phone: 1([phone]) [phone] Consult note Author Marquez Beal [facility] August 13, 2021 1:32pm Note Date/Time August 13, 2021 1:32 pm [facility] [address] [place] [address] Cardiology Consult Note Signed Patient: Deysi Hernandez MR#: [id number] : 1960 Acct:[id number] Age/Sex: 61 / F Adm Date: 2 Loc: Room: [address] [place] [address] Type : ADM IN Attending Dr: Alaina [...] x10E3/uL Lymph # (Auto) 1.0 (1.00-4.8) x10E3/uL Bullitt # (Auto) 0.5 (0.0-0.8) x10E3/uL Eos # [...] <Electronically signed by MD Marquez Beal> 08/13/21 0832 [facility] Work Phone: 1([phone]) 460-787306-26-2022 History and physical note Author Alaina Arce [facility] August 13, 2021 12:13pm Note Date/Time August 13, 2021 11:5 5am [facility] [address] [place] [address] Hospitalist H&P Signed Patient: Deysi Hernandez MR#: [id number] : 1960 Acct:[id number] Age/Sex: 61 / F Adm Date: 2 Loc: Room: [address] [place] [address] Type : ADM IN Attending Dr: Alaina Arce MD Copies to: Alaina Arce MD NO FAMILY PHYSICIAN~ HPI DATE OF EXAMINATION: 08/13/21 CHIEF COMPLAINT: Abdominal pain HISTORY OF PRESENT ILLNESS: Patient is 61-year-old female with no previous known medical history GERD transferred from [place] for further management of abdominal pain. Patient [...] a week ago, patient initially went to [place] ER, was found to have blood pressure [...] showed changes similar to 1 done in [place], Labs at [facility], potassium 3.1, creatinine 1.92, bloodglucose [...] % (Auto) 9.1 % (.) 08/13/21 10:44 Bullitt % (Auto) 4.9 % (.) 08/13/21 10:44 Eos % (Auto) 0.1 % (.) 08/13/21 10:44 Baso % (Auto) 0.7 % (.) 08/13/21 10:44 Neut # (Auto) 9.1 x10E3/uL (1.8-7.7) H 08/13/21 10:44 Lymph # (Auto) 1.0 x10E3/uL (1.00-4.8) 08/13/21 10:44 Bullitt # (Auto) 0.5 x10E3/uL (0.0-0.8) 08/13/21 10:44 [...] Creatinine is 1.92, more than 1.6 at [place], likely secondary underlying dehydration, continue monitor BMP daily Replace potassium, give magnesium DVT prophylaxis PT OT Documented By: Alaina Arce MD 08/13/21 1150 Signed By: <Electronically signed by Alaina Arce MD> 08/13/21 1213 [facility] Work Phone: 1([phone]) [phone] History of Past illness Narrative* Problem Noted Date Diagnosed Date Resolved Date Encounter for screening for malignant neoplasm of colon 03/27/2016 10/09/2022 documented as of this encounter (statuses as of 10/10/2022) [facility]07[facility]2017 History of Past illness Narrative* Problem Noted Date Diagnosed Date Resolved Date Encounter for screening for malignant neoplasm of colon 03/27/2016 10/09/2022 documented as of this encounter (statuses as of 10/12/2022) [facility]2017 History of Past illness Narrative* Problem Noted Date Diagnosed Date Resolved Date Encounter for screening for malignant neoplasm of colon 03/27/2016 10/09/2022 documented as of this encounter (statuses as of 10/25/2022) [facility]2017 History of Past illness Narrative* Problem Noted Date Diagnosed Date Resolved Date Encounter for screening for malignant neoplasm of colon 03/27/2016 10/09/2022 documented as of this encounter (statuses as of 10/27/2022) [facility]2017 History of Past illness Narrative* Problem Noted Date Diagnosed Date Resolved Date Encounter for screening for malignant neoplasm of colon 03/27/2016 10/09/2022 documented as of this encounter (statuses as of 10/30/2022) [facility]12-01-2010 History general Narrative -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
== END 2023-11-16 10:51 | disposition home or self-care (01) ==
LOC: US 10:51
DX: N18.32 Chronic kidney disease, stage 3b (principal)
CPT/HCPCS: 76775

== ENCOUNTER 2023-12-14 11:30 | Outpatient (OUT) | payer OTHER, SELFPAY ==
--- OUTSIDE RECORDS SUMMARY | 2023-12-14 11:35 | XMS_ITS | CCD ---
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 02-14-2023 Estimated GFR (CKD-EPI) 44.991 mL/Min [facility] Creatinine Clearance (Chem 40.59 [facility] Nucleated erythrocytes [Pres ence] in Blood by Automated countOrdered By: Jacques East on 02-14-2023 Nucleated RBC Auto Ql (Bld) 0.0 /100{WBC} 0-0.5 [facility] Platelet mean volume Auto (B ld) [Entitic vol]Ordered By: Jaraddah Daromar on 02-14-2023 Platelet mean volume (Bld) [Entitic vol] 8.5 fL 6.3-10.7 [facility] Platelets Auto (Bld) [#/Vol] Ordered By: Obaydah Daromar on 02-14-2023 Platelets (Bld) [#/Vol] 220 10*3/uL 150-450 [facility] Potassium [Moles/volume] in Serum or PlasmaOrdered By: Obaydah Daromar on 02-14-2023 Potassium [Moles/Vol] 5.4 mmol/L 3.5-5.1 [facility] RBC Auto (Bld) [#/Vol]Ordere d By: Obaydah Daromar on 02-14-2023 RBC (Bld) [#/Vol] 4.92 10*6/uL 3.60-5.00 [facility] Serum or plasma anion gap de terminationOrdered By: Obaydah Daromar on 02-14-2023 Anion gap [Moles/Vol] 12.2 mmol/L 6.0-15.0 [facility] Sodium [Moles/volume] in Ser um or PlasmaOrdered By: Obaydah Daromar on 02-14-2023 Sodium [Moles/Vol] 136 mmol/L 136-145 [facility] Urea nitrogen [Mass/volume] in Serum or PlasmaOrdered By: Obaydah Daromar on 02-14-2023 Urea nitrogen [Mass/Vol] 33 mg/dL 7-25 [facility] WBC Auto (Bld) [#/Vol]Ordere d By: Obaydah Daromar on 02-14-2023 WBC (Bld) [#/Vol] 12.7 10*3/uL 3.8-11.6 [facility] Alanine aminotransferase [En zymatic activity/volume] in Serum or PlasmaOrdered By: Obaydah Daromar on 02-13-2023 ALT [Catalytic activity/Vol] 16 U/L 7-52 [facility] Albumin [Mass/volume] in Ser um or Plasma by Bromocresol green (BCG) dye binding methoOrdered By: Jacques Talbotomar on 02-13-2023 Albumin BCG dye [Mass/Vol] 4.0 g/dL 3.5-5.7 [facility] Alkaline phosphatase [Enzyma tic activity/volume] in Serum or PlasmaOrdered By: Obpatriciadaenrique Talbotomar on 02-13-2023 ALP [Catalytic activity/Vol] 57 U/L 34-104 [facility] Aspartate aminotransferase [ Enzymatic activity/volume] in Serum or PlasmaOrdered By: Obpatriciadaenrique Daromar on 02-13-2023 AST [Catalytic activity/Vol] 22 U/L 13-39 [facility] Bilirubin.total [Mass/volume ] in Serum or PlasmaOrdered By: Obpatriciadaenrique Talbotomar on 02-13-2023 Bilirubin [Mass/Vol] 0.6 mg/dL 0.3-1.0 [facility] Complete Blood Count Auto Di ffon 02-13-2023 Basophils (Bld) [#/Vol] 0.0 10*3/uL Normal 0.0-0.2 [facility] Comment on above: Result Comment: PERF ORMED BY: [facility] [address] [place] [address] PATHOLOGIST [employer] JERAMY CALDWELL M.D. Performed By: #### C JUANITA MG, CMP ####[place] [address] Basophils/100 WBC (Bld) 0.2 % Normal . [facility] Comment on above: Performed By: #### C BC, MG, CMP ####[facility] [place] [id number] [place] Eosinophils (Bld) [#/Vol] 0.0 10*3/uL Normal 0.0-0.45 [facility] Comment on above: Performed By: #### C BC MG, CMP ####[facility] [place] [id number] [place] Eosinophils/100 WBC (Bld) 0.0 % Normal . [facility] Comment on above: Performed By: #### C BC, MG, CMP ####[address] Erythrocyte distribution width (RBC) [Ratio] 14.4 % Normal 11.9-15.3 [facility] Comment on above: Performed By: #### C BC MG, CMP ####[address] Hematocrit (Bld) [Volume fraction] 43.2 % Normal 34.0-46.4 [facility] Comment on above: Performed By: #### C JUANITA MG, CMP ####[place] [id number] [facility] Hemoglobin (Bld) [Mass/Vol] 14.6 g/dL Normal 11.8-15.4 [facility] Comment on above: Performed By: #### C BC MG, CMP ####[address] Lymphocytes (Bld) [#/Vol] 2.7 10*3/uL Normal 1.00-4.8 [facility] Comment on above: Performed By: #### C BC MG, CMP ####[address] Lymphocytes/100 WBC (Bld) 18.3 % Normal . [facility] Comment on above: Performed By: #### C BC MG, CMP ####[place] [id number] [facility] MCH (RBC) [Entitic mass] 30.5 pg Normal 24.7-34.3 [facility] Comment on above: Performed By: #### C BC, MG, CMP ####[place] [id number] [facility] MCV (RBC) [Entitic vol] 90.1 fL Normal 80-100 [facility] Comment on above: Performed By: #### C BC, MG, CMP ####[place] [id number] [facility] Mean Corpuscular HGB Conc 33.8 g/dL Normal 32.0-35.0 [facility] Comment on above: Performed By: #### C BC, MG, CMP ####[facility] [id number] [place] [address] [facility] Monocytes (Bld) [#/Vol] 1.2 10*3/uL High 0.0-0.8 [facility] Comment on above: Performed By: #### C BC, MG, CMP ####[place] [address] [place] [address] [facility] Monocytes/100 WBC (Bld) 7.9 % Normal . [facility] Comment on above: Performed By: #### C BC, MG, CMP ####[place] [address] [place] [address] [facility] Neutrophils (Bld) [#/Vol] 11.0 10*3/uL High 1.8-7.7 [facility] Comment on above: Performed By: #### C BC, MG, CMP ####[place] [id number] [facility] Neutrophils/100 WBC (Bld) 73.6 % Normal . [facility] Comment on above: Performed By: #### C BC, MG, CMP ####[place] [id number] [facility] NRBC% 0.1 /100{WBC} Normal 0-0.5 [facility] Comment on above: Performed By: #### C BC, MG, CMP ####[place] [address] [place] [id number] [facility] Platelet mean volume (Bld) [Entitic vol] 7.8 fL Normal 6.3-10.7 [facility] Comment on above: Performed By: #### C BC, MG, CMP ####[place] [address] [place] [address] [facility] Platelets (Bld) [#/Vol] 212 10*3/uL Normal 150-450 [facility] Comment on above: Performed By: #### C BC, MG, CMP ####[place] [address] [place] [id number] [facility] RBC (Bld) [#/Vol] 4.80 10*6/uL Normal 3.60-5.00 [facility] Comment on above: Performed By: #### C MG JUANITA, CMP ####[place] [id number] [facility] WBC (Bld) [#/Vol] 14.9 10*3/uL High 3.8-11.6 [facility] Comment on above: Performed By: #### C JUANITA MG, CMP ####[place] [id number] [facility] Comprehensive Metabolic Pane franco 02-13-2023 Albumin [Mass/Vol] 4.0 g/dL Normal 3.5-5.7 [facility] Comment on above: Performed By: #### C MG JUANITA, CMP ####[address] Albumin/Globulin [Mass ratio] 1.6 {ratio} Normal [facility] Comment on above: Performed By: #### C JUANITA MG, CMP ####[place] [id number] [facility] ALP [Catalytic activity/Vol] 57 U/L Normal 34-104 [facility] Comment on above: Performed By: #### C JUANITA MG, CMP ####[place] [id number] [facility] ALT [Catalytic activity/Vol] 16 U/L Normal 7-52 [facility] Comment on above: Performed By: #### C JUANITA MG, CMP ####[place] [id number] [facility] Anion gap [Moles/Vol] 9.4 mmol/L Normal 6.0-15.0 [facility] Comment on above: Performed By: #### C JUANITA MG, CMP ####[place] [id number] [facility] AST [Catalytic activity/Vol] 22 U/L Normal 13-39 [facility] Comment on above: Performed By: #### C JUANITA MG, CMP ####[place] [id number] [facility] Bilirubin [Mass/Vol] 0.6 mg/dL Normal 0.3-1.0 [facility] Comment on above: Performed By: #### C BC MG, CMP ####[place] [address] Calcium [Mass/Vol] 9.2 mg/dL Normal 8.6-10.3 [facility] Comment on above: Performed By: #### C BC MG, CMP ####[address] Chloride [Moles/Vol] 105 mmol/L Normal 98-107 [facility] Comment on above: Performed By: #### C BC MG, CMP ####[address] CO2 [Moles/Vol] 27.1 mmol/L Normal 21.0-31.0 [facility] Comment on above: Performed By: #### C BC MG, CMP ####[address] Creatinine [Mass/Vol] 1.45 mg/dL High 0.60-1.20 [facility] Comment on above: Performed By: #### C BC MG, CMP ####[address] Creatinine Clr Calc Pharmacy 37.90 [facility] Comment on above: Performed By: #### C BC MG, CMP ####[address] GFR/1.73 sq M.predicted MDRD (S/P/Bld) [Vol rate/Area] 41.294 mL/min/{1.73_m2} [facility] Comment on above: Performed By: #### C BC MG, CMP ####[address] Globulin (S) [Mass/Vol] 2.5 g/dL [facility] Comment on above: Performed By: #### C BC, MG, CMP ####[place] [address] [place] [id number] [facility] Glucose [Mass/Vol] 92 mg/dL Normal 70-100 [facility] Comment on above: Result Comment: [facility] [place] Glucose Reference Range is dependent on time and content of last meal. Glucose of more than 200 mg/dL in a nonstressed, ambulatory subject supports the diagnosis of Diabetes Mellitus. ADA recommended reference range Performed By: #### C BC, MG, CMP ####[place] [address] [place] [id number] [facility] Potassium [Moles/Vol] 4.5 mmol/L Normal 3.5-5.1 [facility] Comment on above: Performed By: #### C BC, MG, CMP ####[place] [address] [place] [id number] [facility] Protein [Mass/Vol] 6.5 g/dL Normal 6.4-8.9 [facility] Comment on above: Performed By: #### C BC, MG, CMP ####[place] [id number] [facility] Sodium [Moles/Vol] 137 mmol/L Normal 136-145 [facility] Comment on above: Performed By: #### C BC, MG, CMP ####[place] [address] [place] [id number] [facility] Urea nitrogen [Mass/Vol] 28 mg/dL High 7-25 [facility] Comment on above: Performed By: #### C BC, MG, CMP ####[place] [id number] [facility] Globulin Calc (S) [Mass/Vol] Ordered By: Jacques East on 02-13-2023 Globulin (S) [Mass/Vol] 2.5 g/dL [facility] Magnesiumon 02-13-2023 Magnesium [Mass/Vol] 1.8 mg/dL Low 1.9-2.7 [facility] Comment on above: Result Comment: PERF ORMED BY: [facility] [address] [place] [address] PATHOLOGIST [employer] JERAMY CALDWELL M.D. Performed By: #### C BC, MG, CMP ####[facility] [id number] Magnesium [Mass/volume] in S oralia or PlasmaOrdered By: Jacques East on 02-13-2023 Magnesium [Mass/Vol] 1.8 mg/dL 1.9-2.7 [facility] Protein [Mass/volume] in Ser um or PlasmaOrdered By: Jacques East on 02-13-2023 Protein [Mass/Vol] 6.5 g/dL 6.4-8.9 [facility] Serum or plasma albumin/glob ulin mass ratioOrdered By: Jacques East on 02-13-2023 Albumin/Globulin [Mass ratio] 1.6 {ratio} [facility] Activated partial thrombopla stin time (aPTT) in platelet poor plasma by coagulation aOrdered By: Sally Valle on 02-12-2023 aPTT Coag (PPP) [Time] 25.6 s 25.1-36.5 [facility] Comment on above: A hematocrit value g reater than 55% may lead to inaccurate results in coagulation testing. Patients having hematocrit values >55% require a special collection tube for coagulation studies. Please contact the laboratory at [phone] for redraw instructions. Aerobic Cultureon 02-12-2023 Aerobic Culture Light Normal Respira tory Zoe 2 Days Gram Stain Result Rare Epithelial Cells 1+ White Blood Cells Rare Gram Positive Coccobacilli PERFORMED BY: [place] [address] PATHOLOGIST [employer] JERAMY CALDWELL M.D. Normal [facility] Comment on above: Performed By: #### A ERC, GS #### [facility] [address] [place] [address] Auth for Release of Medical Recordson 02-12-2023 Auth for Release of Medical Records [id number] Normal [facility] Automated erythrocytes count in urine sediment (number/area)Ordered By: Jacques East on 02-12-2023 RBC Auto (Urine sed) [#/Area] 1-2 [HPF] 0-4 [facility] Automated leukocytes count i n urine sediment (number/area)Ordered By: Jacques Chirinosr on 02-12-2023 WBC Auto (Urine sed) [#/Area] 3-4 [HPF] 0-4 [facility] Bilirubin Test strip Ql (U)O rdered By: Jacques East on 02-12-2023 Bilirubin Ql (U) Negative Negative [facility] C Urineon 02-12-2023 Bacteria identified Cx Nom [...] Locations R1: This test was performed at: [facility], [address] [place] [address], [phone]- , , Normal [facility] Comment on above: Performed By: #### [id number] #### [facility] [address] [place] [address] Coagulation Profileon 2022 aPTT Coag (Bld) [Time] 25.6 s Normal 25.1-36.5 [facility] Comment on above: Result Comment: A he matocrit value greater than 55% may lead to inaccurate results in coagulation testing. Patients having hematocrit values >55% require a special collection tube for coagulation studies. Please contact the laboratory at [phone] for redraw instructions. PERFORMED BY: [facility] [address] [place] [address] PATHOLOGIST [employer] JERAMY CALDWELL M.D. Performed By: #### C BC, PP, CMP ####[facility] [id number] [place] [address] [facility] INR Coag (PPP) [Relative time] 0.9 {INR} Normal [facility] Comment on [...] Performed By: #### C BC, PP, CMP ####[facility] PT Coag (PPP) [Time] 10.9 s Normal 9.0-12.9 [facility] Comment on above: Result Comment: A he matocrit value greater than 55% may lead to inaccurate results in coagulation testing. Patients having hematocrit values >55% require a special collection tube for coagulation studies. Please contact the laboratory at [phone] for redraw instructions. Performed By: #### C JUANITA, PP, CMP ####[facility] Color Auto (U)Ordered By: Glen[place] East on 02-12-2023 Color (U) Yellow Yellow [facility] Complete Blood Count Auto Di ffon 02-12-2023 Basophils (Bld) [#/Vol] 0.0 10*3/uL Normal 0.0-0.2 [facility] Comment on above: Result Comment: PERF ORMED BY: [facility] [address] [facility] [place] [address] PATHOLOGIST [employer] JERAMY CALDWELL M.D. Performed By: #### C BC, PP, CMP #### [facility] [address] [place] [address] [place] Basophils/100 WBC (Bld) 0.2 % Normal . [facility] Comment on above: Performed By: #### C BC, PP, CMP #### [facility] [address] [place] [address] [place] Eosinophils (Bld) [#/Vol] 0.0 10*3/uL Normal 0.0-0.45 [facility] Comment on above: Performed By: #### C BC, PP, CMP #### [facility] [address] [place] [address] [place] Eosinophils/100 WBC (Bld) 0.0 % Normal . [facility] Comment on above: Performed By: #### C BC, PP, CMP #### [facility] [address] Erythrocyte distribution width (RBC) [Ratio] 14.6 % Normal 11.9-15.3 [facility] Comment on above: Performed By: #### C BC, PP, CMP #### [facility] [address] Hematocrit (Bld) [Volume fraction] 46.1 % Normal 34.0-46.4 [facility] Comment on above: Performed By: #### C BC, PP, CMP #### [facility] [address] Hemoglobin (Bld) [Mass/Vol] 15.6 g/dL High 11.8-15.4 [facility] Comment on above: Performed By: #### C BC, PP, CMP #### [facility] [address] Lymphocytes (Bld) [#/Vol] 0.6 10*3/uL Low 1.00-4.8 [facility] Comment on above: Performed By: #### C BC, PP, CMP #### [place] [address] [place] Lymphocytes/100 WBC (Bld) 4.0 % Normal . [facility] Comment on above: Performed By: #### C BC, PP, CMP #### [facility] [address] MCH (RBC) [Entitic mass] 30.6 pg Normal 24.7-34.3 [facility] Comment on above: Performed By: #### C BC, PP, CMP #### [facility] [address] MCV (RBC) [Entitic vol] 90.6 fL Normal 80-100 [facility] Comment on above: Performed By: #### C BC, PP, CMP #### [facility] [address] Mean Corpuscular HGB Conc 33.8 g/dL Normal 32.0-35.0 [facility] Comment on above: Performed By: #### C BC, PP, CMP #### [facility] [address] Monocytes (Bld) [#/Vol] 0.3 10*3/uL Normal 0.0-0.8 [facility] Comment on above: Performed By: #### C BC, PP, CMP #### [address] Monocytes/100 WBC (Bld) 1.8 % Normal . [facility] Comment on above: Performed By: #### C BC, PP, CMP #### [address] Neutrophils (Bld) [#/Vol] 14.1 10*3/uL High 1.8-7.7 [facility] Comment on above: Performed By: #### C BC, PP, CMP #### [address] Neutrophils/100 WBC (Bld) 94.0 % Normal . [facility] Comment on above: Performed By: #### C BC, PP, CMP #### [facility] [address] [place] [address] NRBC% 0.1 /100{WBC} Normal 0-0.5 [facility] Comment on above: Performed By: #### C BC, PP, CMP #### [address] Platelet mean volume (Bld) [Entitic vol] 7.9 fL Normal 6.3-10.7 [facility] Comment on above: Performed By: #### C BC, PP, CMP #### [facility] [address] [place] [address] Platelets (Bld) [#/Vol] 236 10*3/uL Normal 150-450 [facility] Comment on above: Performed By: #### C BC, PP, CMP #### [address] RBC (Bld) [#/Vol] 5.09 10*6/uL High 3.60-5.00 [facility] Comment on above: Performed By: #### C JUANITA, PP, CMP #### [address] WBC (Bld) [#/Vol] 15.0 10*3/uL High 3.8-11.6 [facility] Comment on above: Performed By: #### C JUANITA, PP, CMP #### [address] Comprehensive Metabolic Pane franco 02-12-2023 Albumin [Mass/Vol] 4.6 g/dL Normal 3.5-5.7 [facility] Comment on above: Performed By: #### C JUANITA, PP, CMP #### [address] Albumin/Globulin [Mass ratio] 1.5 {ratio} Normal [facility] Comment on above: Performed By: #### C JUANITA, PP, CMP #### [address] ALP [Catalytic activity/Vol] 70 U/L Normal 34-104 [facility] Comment on above: Performed By: #### C JUANITA, PP, CMP #### [address] ALT [Catalytic activity/Vol] 19 U/L Normal 7-52 [facility] Comment on above: Performed By: #### C BC, PP, CMP #### [address] Anion gap [Moles/Vol] Not performed Normal 6.0-15.0 [facility] Comment on above: Performed By: #### C BC, PP, CMP #### [address] AST [Catalytic activity/Vol] 29 U/L Normal 13-39 [facility] Comment on above: Performed By: #### C JUANITA, PP, CMP #### [facility] [address] Bilirubin [Mass/Vol] 0.5 mg/dL Normal 0.3-1.0 [facility] Comment on above: Performed By: #### C JUANITA, PP, CMP #### [facility] [address] Calcium [Mass/Vol] 9.9 mg/dL Normal 8.6-10.3 [facility] Comment on above: Performed By: #### C JUANITA, PP, CMP #### [facility] [address] Chloride [Moles/Vol] 106 mmol/L Normal 98-107 [facility] Comment on above: Performed By: #### C JUANITA, PP, CMP #### [facility] [address] CO2 [Moles/Vol] 20.4 mmol/L Low 21.0-31.0 [facility] Comment on above: Performed By: #### C JUANITA, PP, CMP #### [facility] [address] Creatinine [Mass/Vol] 1.65 mg/dL High 0.60-1.20 [facility] Comment on above: Performed By: #### C JUANITA, PP, CMP #### [facility] [address] Creatinine Clr Calc Pharmacy 34.03 Normal [facility] Comment on above: Result Comment: PERF ORMED BY: [place] [address] PATHOLOGIST [employer]ELOPER JERAMY CALDWELL M.D. Performed By: #### C JUANITA, PP, CMP #### [facility] [address] GFR/1.73 sq M.predicted MDRD (S/P/Bld) [Vol rate/Area] 35.363 mL/min/{1.73_m2} Normal [facility] Comment on above: Performed By: #### C BC, PP, CMP #### [facility] [address] Globulin (S) [Mass/Vol] 3.1 g/dL Normal [facility] Comment on above: Performed By: #### C BC, PP, CMP #### [facility] [address] Glucose [Mass/Vol] 157 mg/dL High 70-100 [facility] Comment on above: Result Comment: [facility] [place] Glucose Reference Range is dependent on time and content of last meal. Glucose of more than 200 mg/dL in a nonstressed, ambulatory subject supports the diagnosis of Diabetes Mellitus. ADA recommended reference range Performed By: #### C BC, PP, CMP #### [facility] [address] Potassium Normal 3.5-5.1 [facility] Comment on above: Result Comment: Spec imen hemolyzed, redraw requested Performed By: #### C BC, PP, CMP #### [facility] [address] [place] [address] [place] Protein [Mass/Vol] 7.7 g/dL Normal 6.4-8.9 [facility] Comment on above: Performed By: #### C BC, PP, CMP #### [facility] [address] [place] [address] [place] Sodium [Moles/Vol] 140 mmol/L Normal 136-145 [facility] Comment on above: Performed By: #### C BC, PP, CMP #### [facility] [address] [place] [id number] [place] Urea nitrogen [Mass/Vol] 32 mg/dL High -25 [facility] Comment on above: Performed By: #### C BC, PP, CMP #### [facility] [address] [place] [address] [place] Dipstick and Microscopicon 1 04-15-2022 Appearance (U) Clear Normal Clear [facility] Comment on above: Order Comment: Name Collection Type:: Clean-Voided Midstream Performed By: #### A DDONUAPLUS #### [facility] [address] [place] [address] [place] Bacteria,Urine None Seen Normal None Seen [facility] Comment on above: Order Comment: Name Collection Type:: Clean-Voided Midstream Performed By: #### A DDONUAPLUS #### [facility] [address] [place] [address] [place] Bilirubin,Urine Negative Normal Negative [facility] Comment on above: Order Comment: Name Collection Type:: Clean-Voided Midstream Performed By: #### A DDONUAPLUS #### [place] [address] [place] Color (U) Yellow Normal Yellow [facility] Comment on above: Order Comment: Name Collection Type:: Clean-Voided Midstream Performed By: #### A DDONUAPLUS #### [place] [address] [place] Glucose Ql (U) Normal Normal Normal [facility] Comment on above: Order Comment: Name Collection Type:: Clean-Voided Midstream Performed By: #### A DDONUAPLUS #### [place] [address] [place] Hyaline Casts,Urine 0-8 Normal 0-8 [facility] Comment on above: Order Comment: Name Collection Type:: Clean-Voided Midstream Result Comment: PERF ORMED BY: [place] [address] PATHOLOGIST [employer] DEVELOPER JERAMY CALDWELL M.D. Performed By: #### A DDONUAPLUS #### [facility] [address] [place] [address] [place] Ketones Ql (U) Negative Normal Negative [facility] Comment on above: Order Comment: Name Collection Type:: Clean-Voided Midstream Performed By: #### A DDONUAPLUS #### [facility] [address] [place] [address] [place] Leukocyte esterase Test strip Ql (U) 1+ High Negative [facility] Comment on above: Order Comment: Name Collection Type:: Clean-Voided Midstream Performed By: #### A DDONUAPLUS #### [facility] [address] [place] [address] [place] Nitrite,Urine Negative Normal Negative [facility] Comment on above: Order Comment: Name Collection Type:: Clean-Voided Midstream Performed By: #### A DDONUAPLUS #### [facility] [address] [place] [address] [place] Occult Blood,Urine Negative Normal Negative [facility] Comment on above: Order Comment: Name Collection Type:: Clean-Voided Midstream Result Comment: PERF ORMED BY: [place] [address] PATHOLOGIST [employer] DEVELOPER JERAMY CALDWELL M.D. Performed By: #### A DDONUAPLUS #### [facility] [address] [place] [address] [place] pH (U) 5.0 [pH] Normal 5.0-9.0 [facility] Comment on above: Order Comment: Name Collection Type:: Clean-Voided Midstream Performed By: #### A DDONUAPLUS #### [facility] [address] [place] [address] [place] Protein,Urine Negative Normal Negative [facility] Comment on above: Order Comment: Name Collection Type:: Clean-Voided Midstream Performed By: #### A DDONUAPLUS #### [facility] [address] [place] [address] [place] RBC,Urine 1-2 Normal 0-4 [facility] Comment on above: Order Comment: Name Collection Type:: Clean-Voided Midstream Performed By: #### A DDONUAPLUS #### [facility] [address] [place] [address] [place] Specificy Mcguffey,Urine 1.017 Normal 1.001-1.03 0 [facility] Comment on above: Order Comment: Name Collection Type:: Clean-Voided Midstream Performed By: #### A DDONUAPLUS #### [facility] [address] [place] [address] [place] Squamous Epithelial Cell,Urine 0-1 Normal 0-2 [facility] Comment on above: Order Comment: Name Collection Type:: Clean-Voided Midstream Performed By: #### A DDONUAPLUS #### [facility] [address] [place] [address] Urobilinogen,Urine Normal Normal Normal [facility] Comment on above: Order Comment: Name Collection Type:: Clean-Voided Midstream Performed By: #### A DDONUAPLUS #### [facility] [address] [place] [address] WBC,Urine 3-4 Normal 0-4 [facility] Comment on above: Order Comment: Name Collection Type:: Clean-Voided Midstream Performed By: #### A DDONUAPLUS #### [address] ECG 12 lead ECGon 02-12-2023 ECG 12 lead ECG [facility] [place] [address] [place] [address] Electrocardiograph Report Signed Patient: Deysi Hernandez MR#: [id number] : 1960 Acct:[id number] Age/Sex: 62 / F ADM Date: 02/12/23 Loc: Room: [address] [place] [address] Type: ADM IN Attending Dr: Jacques East [...] Signed By Bj Bay DO 02/13 1109 [facility] Gram Stainon 02-12-2023 Microscopic observation Gram stain Nom (Unsp spec) Gram Stain Result Rare Epithelial Cells 1+ White Blood Cells Rare Gram Positive Coccobacilli PERFORMED BY: [place] [address] PATHOLOGIST [employer] DEVELOPER JERAMY CALDWELL M.D. [facility] Comment on above: Performed By: #### A ERC, #### [address] Gram stain for investigation of transfusion reactionOrdered By: Jacques East on 02-12-2023 Microscopic observation Gram stain Nom (Unsp spec) [facility] Microscopic observation Gram stain Nom (Unsp spec) 2 Days [facility] INR in Platelet poor plasma by Coagulation assayOrdered By: Sally Valle on 02-12-2023 INR Coag (PPP) [Relative time] 0.9 {INR} [facility] Comment on above: INR Therapeutic [...] on 02-12-2023 Ketones (U) [Mass/Vol] Negative Negative [facility] - UrinalysisOrder ed By: Jacques East on 02-12-2023 Hyaline casts LM Ql (Urine sed) 0-8 [LPF] 0-8 [facility] Magnesiumon 02-12-2023 Magnesium [Mass/Vol] 1.8 mg/dL Low 1.9-2.7 [facility] Comment on above: Result Comment: PERF ORMED BY: [facility] [address] [place] [address] PATHOLOGIST [employer] DEVELOPER JERAMY CALDWELL M.D. Performed By: #### M G ####[place] [address] [place] [id number] [facility] Nitrite Test strip Ql (U)Ord ered By: Obpatriciadaenrique Talbotomar on 02-12-2023 Nitrite Ql (U) Negative Negative [facility] Protein Auto test strip (U) [Mass/Vol]Ordered By: Obpatriciadaenrique Talbotomar on 02-12-2023 Protein (U) [Mass/Vol] Negative Negative [facility] Prothrombin time (PT)Ordered By: Sally Valle on 02-12-2023 PT Coag (PPP) [Time] 10.9 s 9.0-12.9 [facility] Comment on above: A hematocrit value g reater than 55% may lead to inaccurate results in coagulation testing. Patients having hematocrit values >55% require a special collection tube for coagulation studies. Please contact the laboratory at [phone] for redraw instructions. Redraw Potassiumon 3 Potassium [Moles/Vol] 4.4 mmol/L Normal 3.5-5.1 [facility] Comment on above: Order Comment: 1ST S pecimen hemolyzed, redraw requested Result Comment: PERF ORMED BY: [facility] [address] [place] [address] PATHOLOGIST [employer] DEVELOPER JERAMY CALDWELL M.D. Performed By: #### R EDRAW K ####[place] [address] [place] [id number] [facility] Specific gravity Auto test s trip (U) [Rel density]Ordered By: Jacques Talbotomar on 02-12-2023 Specific gravity (U) [Rel density] 1.017 1.001-1.03 0 [facility] Squamous epithelial cells de tection in urine sediment by light microscopyOrdered By: Jacques Talbotomar on 02-12-2023 Epithelial cells.squamous LM Ql (Urine sed) 0-1 [HPF] 0-2 [facility] Troponin I High Sensitivityo n 02-12-2023 Troponin I High Sensitivity 43.8 pg/mL High 0.0-15.0 [facility] Comment on above: Result Comment: PERF ORMED BY: [address] [id number] PATHOLOGIST [employer] DEVELOPER JERAMY CALDWELL M.D. Performed By: #### H S TROP ####[place] [address] [place] [address] [facility] Troponin I High Sensitivity 70.6 pg/mL Off scale high 0.0-15.0 [facility] Comment on above: Result Comment: Crit ical Result : Called to and read back by: BRANDON LEVINE at: 02/12/2023 08:07:31 by:LUCIANO PERFORMED BY: [address] [id number] PATHOLOGIST [employer] DEVELOPER JERAMY CALDWELL M.D. Performed By: #### H S TROP ####[place] [id number] [facility] Troponin I.cardiac [Mass/vol ume] in Serum or Plasma by Detection limit <= 0.01 ng/Ordered By: Sally Valle on 02-12-2023 Troponin I.cardiac DL <= 0.01 ng/mL [Mass/Vol] 43.8 pg/mL 0.0-15.0 [facility] Urine bacteria detection by automated methodOrdered By: Jacques East on 02-12-2023 Bacteria Auto Ql (U) None seen None Seen [facility] Urine clarity by refractomet ry automatedOrdered By: Jacques East on 02-12-2023 Clarity Refractometry automated (U) Clear Clear [facility] Urine glucose measurement by automated test strip (mass/volume)Ordered By: Jacques East on 02-12-2023 Glucose Auto test strip (U) [Mass/Vol] Normal mg/dL Normal [facility] Urine hemoglobin detection b y automated test stripOrdered By: Jacques East on 02-12-2023 Hemoglobin Auto test strip Ql (U) Negative Negative [facility] Urine leukocyte esterase det ection by automated test stripOrdered By: Jacques East on 02-12-2023 Leukocyte esterase Auto test strip Ql (U) 1+ Negative [facility] Urobilinogen Auto test strip (U) [Mass/Vol]Ordered By: Jacques East on 02-12-2023 Urobilinogen (U) [Mass/Vol] Normal mg/dL Normal [facility] XR chest 1V portableon 02-12 XR chest 1V portable [facility] [place] [address] XRay Report Signed Patient: Deysi Hernandez MR#: [id number] : 1960 Acct:[id number] Age/Sex: 62 / F ADM Date: 02/12/23 Loc: Room: [address] [place] [address] Type: ADM IN Attending Dr: Jacques East [...] Bj Ma M.D.02/12/2023 12:40 PM Dictation Location: [place] [address] Transcribed By: [facility] 02/12/23 1240 Dictated By: Bj Ma DO 02/12/23 1237 Signed By: 02/12/23 1240 Normal [facility] pH Auto test strip (U)Ordere d By: Jacques East on 02-12-2023 pH (U) 5.0 [pH] 5.0-9.0 [facility] Ambulatory Visit Summaryon 1 04-13-2022 Ambulatory Visit Summary DEYSI HERNANDEZ :1960 Visit Date:02/10/2023 Ambulatory Visit Instructions Your Diagnosis Dysuria Tests Performed Urnls Dip Stick Auto w/o Microscopy POC 95801 Your Care Team Attending Physician - Alex BRIDGES, Jaxson W. Primary Care Physician - DONAN FINNEY, This Is Your Medications List Misc [...] Urnls Dip Stick Auto w/o Microscopy POC 07752 (02/10/2023) Bilirubin Urine Dipstick - Negative Blood Urine Dipstick - 2+ Moderate Glucose Urine Dipstick - Negative Ketones Urine Dipstick - Negative Leukocytes Urine Dipstick - 1+ Small Nitrite Urine Dipstick - Positive Protein Urine Dipstick - Negative Specific Mcguffey Urine Dipstick - 1.015 Urine Appearance Urine [...] for choosing us for your care. Normal [facility] Auto Diffon 02-10-2023 Basophils/100 WBC (Bld) 1.3 % Normal 0.0-2.0 [facility] Comment on above: Order Comment: Order Added by Discern Expert. Performed By: #### 2 960586, 19892232, 65785954, 5656817, 9620891, 37415374, 45570638 ####[facility] [address] [place] [address] Basophils/Leukocytes Auto (Bld) [Pure # fraction] 0.1 E9/L Normal 0.0-0.2 [facility] Comment on above: Order Comment: Order Added by Discern Expert. Performed By: #### 2 253540, 88267200, 30504086, 0277386, 3982865, 40133145, 74519023 ####[facility] [address] [place] [address] Eosinophils/100 WBC (Bld) 1.5 % Normal 0.0-8.0 [facility] Comment on above: Order Comment: Order Added by Discern Expert. Performed By: #### 2 552634, 85531477, 91417392, 0804010, 4167588, 19304318, 18957408 ####[facility] [address] [place] [address] Eosinophils/Leukocytes Auto (Bld) [Pure # fraction] 0.1 E9/L Normal 0.0-0.5 [facility] Comment on above: Order Comment: Order Added by Discern Expert. Performed By: #### 2 763605, 51067589, 70855193, 1087958, 5327701, 54707688, 92378957 ####[facility] [address] [place] [address] Lymphocytes/100 WBC (Bld) 16.8 % Normal 14.0-50.0 [facility] Comment on above: Order Comment: Order Added by Discern Expert. Performed By: #### 2 954888, 48145053, 58243166, 9689355, 8504990, 35826446, 84553800 ####[facility] [address] [place] [address] Lymphocytes/Leukocytes Auto (Bld) [Pure # fraction] 1.6 E9/L Normal 1.0-4.0 [facility] Comment on above: Order Comment: Order Added by Edmund Expert. Performed By: #### 2 370054, 27418423, 07613209, 3488838, 7066050, 10033676, 48205587 ####[place] [address] [place] [address] Monocytes/100 WBC (Bld) 9.8 % Normal 4.0-14.0 [facility] Comment on above: Order Comment: Order Added by Discern Expert. Performed By: #### 2 633586, 81294645, 72276340, 3803853, 1253577, 38953527, 66762643 ####[address] [address] Monocytes/Leukocytes Auto (Bld) [Pure # fraction] 0.9 E9/L Normal 0.2-1.0 [facility] Comment on above: Order Comment: Order Added by Discern Expert. Performed By: #### 2 579691, 28450816, 53769137, 9020790, 8069447, 83571092, 91891086 ####[place] [address] [place] [address] Neutrophils/100 WBC (Bld) 70.6 % Normal 36.0-75.0 [facility] Comment on above: Order Comment: Order Added by Edmund Expert. Performed By: #### 2 081492, 79622030, 07380682, 9805065, 0009169, 23530232, 13935012 ####[place] [address] [place] [address] Neutrophils/Leukocytes Auto (Bld) [Pure # fraction] 6.7 E9/L Normal 2.0-7.5 [facility] Comment on above: Order Comment: Order Added by Discern Expert. Performed By: #### 2 731258, 35682254, 67728399, 4406450, 2164434, 62353101, 62427495 ####[facility] [address] [place] [address] BMPon 02-10-2023 Anion gap [Moles/Vol] 14 mmol/L Normal 6-16 [facility] Comment on above: Performed By: #### 2 411891, 13539580, 38470796, 2968439, 5544755, 83174383, 63803280 ####[facility] [address] [place] [address] BUN/Creat Ratio 12 No Units Normal 10-[address] [facility] Comment on above: Performed By: #### 2 369273, 43553051, 20754986, 2531954, 2063473, 54935279, 12850969 ####[facility] [address] [place] [address] Calcium [Mass/Vol] 9.7 mg/dL Normal 8.9-11.1 [facility] Comment on above: Performed By: #### 2 118244, 36059235, 16115618, 6984388, 9523298, 99892431, 64155845 ####[facility] [address] [place] [address] Chloride [Moles/Vol] 107 mmol/L Normal 101-111 [facility] Comment on above: Performed By: #### 2 544753, 21630521, 08980762, 4987992, 5816292, 41505651, 88661583 ####[facility] [address] [place] [address] CO2 [Moles/Vol] 25 mmol/L Normal 21-31 [facility] Comment on above: Performed By: #### 2 118166, 46160489, 93349257, 1132128, 3281581, 72128408, 31018877 ####[facility] [address] [place] [address] Creatinine [Mass/Vol] 1.4 mg/dL High 0.5-1.3 [facility] Comment on above: Performed By: #### 2 497958, 17088461, 23865107, 4814755, 3995483, 64779360, 91978659 ####[facility] [address] [place] [address] Glucose [Mass/Vol] 84 mg/dL Normal 55-199 [facility] Comment on above: Performed By: #### 2 593262, 82159908, 50565042, 8575605, 6150822, 40359683, 28952223 ####[facility] [address] [place] [address] Potassium [Moles/Vol] 4.8 mmol/L Normal 3.5-5.3 [facility] Comment on above: Performed By: #### 2 400436, 50774360, 32274583, 1421716, 3836177, 49877099, 52355248 ####[facility] [address] [place] [address] Sodium [Moles/Vol] 141 mmol/L Normal 135-145 [facility] Comment on above: Performed By: #### 2 053764, 99316250, 36526629, 2251299, 1769597, 34201489, 39529211 ####[facility] [address] [place] [address] Urea nitrogen [Mass/Vol] 17 mg/dL Normal 5-21 [facility] Comment on above: Performed By: #### 2 544528, 80893265, 93238214, 2510630, 2169541, 14386839, 63643682 ####[place] [address] [place] [address] BNPon 02-10-2023 Natriuretic peptide B (Bld) [Mass/Vol] 39 pg/mL Normal 5-80 [facility] Comment on above: Performed By: #### 2 453270, 38637841, 04673626, 3312771, 0569422, 02252945, 18837406 ####[facility] [address] [place] [address] CBC w/ Auto Diffon Erythrocyte distribution width (RBC) [Ratio] 14.4 % High 10.9-14.2 [facility] Comment on above: Performed By: #### 2 416648, 99686508, 43209819, 1263041, 5571847, 37899358, 98495268 ####[place] [address] [place] [address] Hematocrit (Bld) [Volume fraction] 50.0 % High 34.0-46.0 [facility] Comment on above: Performed By: #### 2 301591, 88647763, 54096552, 8833218, 9634370, 49780340, 25759873 ####[facility] [address] [place] [address] Hemoglobin (Bld) [Mass/Vol] 16.8 g/dL High 12.0-16.0 [facility] Comment on above: Performed By: #### 2 635802, 49583495, 23232958, 1613792, 4563516, 61696866, 92868093 ####[facility] [address] [place] [address] MCH (RBC) [Entitic mass] 30.1 pg Normal 27.0-34.0 [facility] Comment on above: Performed By: #### 2 751225, 33647018, 39803725, 9316148, 7755225, 91194951, 02085514 ####[address] [address] MCHC (RBC) [Mass/Vol] 33.7 g/dL Normal 31.4-36.0 [facility] Comment on above: Performed By: #### 2 574255, 69152717, 82776297, 6271509, 6039177, 81721056, 18984191 ####[place] [address] [place] [address] MCV (RBC) [Entitic vol] 89.4 fL Normal 80.0-100.0 [facility] Comment on above: Performed By: #### 2 [id number], [id number], [id number], 3907014, 3327460, 34388270, [id number] ####[address] [address] Platelet mean volume (Bld) [Entitic vol] 8.0 fL Normal 6.4-10.8 [facility] Comment on above: Performed By: #### 2 457785, 53999884, 06606988, 0389181, 4870362, 22441498, 88179930 ####[address] [address] Platelets (Bld) [#/Vol] 202.0 E9/L Normal 150.0-500. 0 [facility] Comment on above: Performed By: #### 2 123659, 84448169, 70362143, 2649930, 5542396, 93933217, 61823419 ####[address] [address] RBC (Bld) [#/Vol] 5.6 E12/L Normal 4.3-5.9 [facility] Comment on above: Performed By: #### 2 976740, 59191051, 01678514, 9410341, 3936168, 00337871, 08881447 ####[address] [address] WBC corrected for nucl RBC Auto (Bld) [#/Vol] 9.4 E9/L Normal 4.0-11.0 [facility] Comment on above: Performed By: #### 2 550573, 15257681, 57925030, 4596191, 5468793, 51032756, 39357544 ####[facility] [address] [place] [id number] CHEMISTRYOrdered By: SYSTEM SYSTEM on 02-10-2023 Anion [...] 39 pg/mL Normal 5 - 80 pg/mL [facility] HemeManSS COAGULATIONOrdered By: Veronica Guidry on 02-10-2023 aPTT Coag (PPP) [Time] 29.2 s Normal 25.1 - 36.5 second(s) [facility] Auto Coag Comment on above: Interpretive Data: P arameter 15 days - 4 weeks 1 - [...] the same coagulation reagent and instrumentation as [facility]. Currently there are no coagulation studies available worldwide for children to 14 days, and no normal ranges. Heparin therapeutic range (represented by Anti-Factor Xa activity of 0.2 - 0.4 U/mL) corresponds to PTT of 56.6 - 109.0 sec. INR Coag (PPP) [Relative time] 1.0 {INR} Invalid Interpretation Code [facility] Auto Coag Comment on above: Interpretive Data: I NR results are specifically intended to assess patients stabilized on long-term Anticoagulation therapy suggested INR s Less Intensive Anticoagulation 2.0 3.0 Conventional Range 3.0 4.5 PT Coag (PPP) [Time] 11.6 s Normal 9.4 - 1 2.5 second(s) [facility] Auto Coag Comment on above: Interpretive Data: 1 5 days - 4 weeks 1 - 5 months 6 -11 months 1 5 years 6 10 years 11 -17 years Mean: 11.2 (9.5 12.6) Mean: 11.0 (9.7 12.8) Mean: 11.0 (9.8 13.0) Mean: 11.3 (9.9 13.4) Mean: 11.7 (10.0 14.6) Mean: 11.8 (10.0 - 14.1) Pediatric Reference ranges were obtained from a study by leesa Alejandre prepared from 1437 samples obtained at 7 different centers using the same coagulation reagent and instrumentation as [facility]. Currently there are no coagulation studies available worldwide for children to 14 days, and no normal ranges. [facility] [id number] Normal [facility] Discharge Instructionson Discharge Instructions [id number] F Normal [facility] ED Clinical Summaryon 2022 ED Clinical Summary (Inserted Image. Neelam ble to display) [place] [id number] ED Clinical Summary Person Information Name: DEYSI HERNANDEZ Trav/[facility] Age: 62 Years : 1960 Sex: Female Language: Palauan PCP: SHAIKH THOMPSON MD Marital Status: Visit [...] 02/10/2023 17:12:09 02/10/2023 17:12:09 ADDRESS: [address] [id number] PHYS DOC NOTES: MEDICAL INFORMATION: Prescriptions Given: New Medications [id number], [address], [place] [phone], [phone] cefdinir (cefdinir 300 mg Cap) 1 Capsules [...] Tablets By Mouth every day. Misc Prescription ([facility] ASPIRIN EC 81 MG TABLET) 0. omeprazole (omeprazole 40 mg Cap-DR) 1 Capsules By Mouth every day. Refills: 2. PATIENT EDUCATION INFORMATION: Instructions: Urinary Tract Infection, Adult, Odtb-eh-Elys; Acute Bronchitis, Adult Follow up: With: Address: When: SHAIKH DONNA [address] [place] [phone] Business (1) In 3 days 02/13/2023 Comments: Follow-up with your primary care provider in 3 to 5 days. If symptoms worsen, do not improve, or new symptoms arise please report back to emergency department for further evaluation. DIAGNOSIS: Bronchitis; UTI (urinary tract infection) Normal [facility] ED Note-Nursingon 02-10-2023 ED Note-Nursing EKG late due to vanessa ent being in the bathroom when called. Normal [facility] ED Note-Physicianon 02-11-20 ED Note-Physician Basic Information [...] (N39.0: Urin (more content not included)... Normal [facility] Comment on above: Result Comment: Elec tronically [...] these instructions at home: Medicines ? Take pdsp-oul-dpdquin and prescription medicines only as told by [...] provider. Document Revised: 09/16/2020 Document Reviewed: 09/16/2020 [employer] Patient Education ? 2022 [employer]. Pulmonary Medicine Acute Bronchitis, Adult Acute bronchitis [...] The f (more content not included)... Normal [facility] ED Patient Summaryon 023 ED Patient Summary (Inserted Image. Neelam ble to display) [place] [id number] Patient Discharge Instructions Person Information Name: DEYSI HERNANDEZ Age: 62 Years Arrival Date: 02/10/2023 14:37:39 Discharge Diagnosis: Bronchitis; UTI (urinary tract infection) Primary Care Physician: SHAIKH THOMPSON MD Provider Information Primary Provider: Gabby De Oliveira M.D. Advanced Gunstock Repairer:None The exam and treatment you received in the Emergency Department were for an urgent problem and are not intended as complete care. It is important that you follow up with a doctor, nurse practitioner, or physician?s data analysis assistant for ongoing care. If your symptoms become worse or you do not improve as expected and you are unable to reach your usual health care provider, you should return to the Emergency Department. We are available 24 hours a day. DEYSI HERNANDEZ Kimberly has been given the following list of patient education materials, prescriptions and follow-up instructions: Follow-up Instructions: With: Address: When: [facility]AIKH DONNA [address] [place] [phone] [employer] (1) In 3 days 02/13/2023 Comments: Follow-up [...] Patient Education Materials: Urinary Tract Infection, Adult, Udfd-mn-Yrnj; Acute Bronchitis, Adult A MESSAGE TO ALL PATIENTS REGARDING OPIOIDS PRESCRIPTION OPIOIDS: WHAT YOU NEED TO KNOW Prescription opioids can be used to help relieve gtporwxz-gt-awsrnl pain and are often prescribed following a [...] Visit www.cdc.gov/ (more content not included)... Normal [facility] Family Medicine Office/Clini c Noteon 02-10-2023 Family [...] send her to the emergency department at [facility]. She was offered EMS transfer but she [...] hurt by (more content not included)... Normal [facility] Comment on above: Result Comment: Elec tronically Signed By: Alex BRIDGES, Jaxson WSasha\.br\Date and Time Signed: 02/10/23 14:46 EST HEMATOLOGYOrdered By: SYSTEM SYSTEM on 02-10-2023 Basophils/100 WBC (Bld) 1.3 % Normal 0.0 - 2.0 % [facility] HemeAutoSS Basophils/Leukocytes Auto (Bld) [Pure # fraction] [...] 202.0 E9/L Normal 150.0 - 500.0 E9/L [facility] HemeAutoSS RBC (Bld) [#/Vol] 5.6 E12/L Normal 4.3 - 5.9 E12/L [facility] HemeAutoSS WBC corrected for nucl RBC Auto (Bld) [#/Vol] 9.4 E9/L Normal 4.0 - 11.0 E9/L [facility] HemeAutoSS Influenza A&B Agon 3 Influenzae A Ag Negative Normal Negative [facility] Comment on above: Performed By: #### 1 [id number], [id number] ####[facility] [address] [place] [address] Influenzae B Ag Negative Normal Negative [facility] Comment on above: Result Comment: Test sensitivity and specificity vary for age group, specimen type, antigen types, and prevalence of disease. Test results must be evaluated in conjunction with other clinical data available to the physician. Individuals who received nasally administered Influenza A vaccine may have positive test results up to 3 days after vaccination. Performed By: #### 1 [id number], [id number] ####[facility] [address] [place] [address] MICRO OTHER TESTSOrdered By: Trudy Guidry on 02-10-2023 Influenzae A Ag Negative (02/10/23 3:25 PM) Normal Negative [facility] Man Sero Influenzae B Ag Negative 1 (02/10/23 3:25 PM) Normal Negative [facility] Man Sero Comment on above: Interpretive Data: [...] NEG Ctl Pass (02/10/23 3:25 PM) Normal [facility] Man Sero Rapid COV Int POS Ctl Pass (02/10/23 3:25 PM) Normal [facility] Man Sero SARS-CoV+SARS-CoV-2 (COVID-19) Ag IA.rapid Ql (Resp) Not Detected 6 (02/10/23 3:25 PM) Normal Not Detected [facility] Man Sero Comment on above: Interpretive Data: T he [employer] Veritor System for Rapid Detection of SARS-CoV-2 [...] Coag (PPP) [Time] 29.2 second(s) Normal 25.1-36.5 [facility] Comment on above: Result Comment: Para meter 15 days - 4 weeks 1 - 5 months 6 - 11 months 1 - 5 years 6 - 10 years 11 - 17 years PTT Mean: 35.4 (27.6-45.6) Mean: 33.5 (24.8-40.7) Mean: 32.4 (25.1-40.7) Mean: 31.6 (24.0-39.2) Mean: 31.6 (26.9-38.7) Mean: 31.0 (24.6-38.4) Pediatric Reference ranges were obtained from a study by leesa Alejandre prepared from 1437 samples obtained at 7 different centers using the same coagulation reagent and instrumentation as [facility]. Currently there are no coagulation studies available worldwide for children to 14 days, and no normal ranges. Heparin therapeutic range (represented by Anti-Factor Xa activity of 0.2 - 0.4 U/mL) corresponds to PTT of 56.6 - 109.0 sec. Performed By: #### 2 225248, 58257451, 40776882, 9272433, 2657379, 80002321, 50845216 ####[facility] [address] [place] [address] INR Coag (PPP) [Relative time] 1.0 {INR} Invalid Interpretation Code [facility] Comment on above: Result Comment: INR results are specifically intended to assess patients stabilized on long-term Anticoagulation therapy suggested INR?s ?Less Intensive Anticoagulation? 2.0 ? 3.0 Conventional Range 3.0 ? 4.5 Performed By: #### 2 102035, 95174215, 61652339, 0635778, 0739035, 93866974, 91563219 ####[facility] [address] [place] [address] PT Coag (PPP) [Time] 11.6 second(s) Normal 9.4-12.5 [facility] Comment on above: Result Comment: 15 d [...] were obtained from a study by Matt [place], et al. prepared from 1437 samples obtained at 7 different centers using the same coagulation reagent and instrumentation as [facility]. Currently there are no coagulation studies available worldwide for children to 14 days, and no normal ranges. Performed By: #### 2 777729, 14507392, 74728427, 7871135, 2722001, 17227929, 36743716 ####[facility] [address] [place] [address] Rapid COVID Antigen ([facility])on 02-10-2023 Rapid COV Int NEG Ctl Pass Normal [facility] Comment on above: Performed By: #### 1 [id number], [id number] ####[facility] [address] [place] [address] Rapid COV Int POS Ctl Pass Normal [facility] Comment on above: Performed By: #### 1 [id number], [id number] ####[place] [address] [place] [address] SARS-CoV+SARS-CoV-2 (COVID-19) Ag IA.rapid Ql (Resp) Not detected Normal Not Detected [facility] Comment on above: Result Comment: The [employer]? System for Rapid Detection of SARS-CoV-2 is [...] or revoked sooner. Performed By: #### 1 [id number], [id number] ####[facility] [address] [place] [address] Troponin 0 Hr.on 02-10-2023 Troponin 5.80 pg/mL Low 10.10-27.1 0 [facility] Comment on above: Result Comment: The 95% CI (Confidence Interval) PPV (Positive Predictive Value) for myocardial infarction in females is 38 pg/mL, in males 51 pg/mL. The results should be used in conjunction with clinical conditions of myocardial infarction. (Access High Sensitivity Troponin I Instructions For Use, Kavita Boring, September 2017) Performed By: #### 2 498832, 90750058, 35326201, 9983686, 8928826, 34019945, 66842145 ####[facility] [address] [place] [address] XR Chest Single Viewon 02-10 XR Chest [...] mGy = na DAP = na Normal [facility] eGFRon 02-10-2023 eGFR 43 mL/min/1.73 m2 Low >=59 [facility] Comment on above: Order Comment: Order added by Discern Expert. Performed By: #### 2 792740, 38476935, 78668544, 6581243, 4760320, 52317626, 12648877 ####[facility] [address] [place] [address] [facility] 10-26-2022 CNPN Telephone (AARON) ----- DEYSI HERNANDEZ ([id number]) 1960 F Date Time Provider Department 10/26/22 [...] question. I will also send her a [employer] message encouraging communicate via [employer] if needed. Debra Fishman MD Staff, Department of Kidney Medicine 10/26/22 5:49 PM Allergies As of Date: 10/26/2022 Noted Allergy Reaction CODEINE 09/07/2014 7 - Swelling Date Reviewed: 10/09/2022 Reviewed by: Taliercio, Rosie, DO - Fully Assessed Reason for Visit: Patient Question [2747] Prescriptions as of 10/26/2022 - lisinopril (ZESTRIL) [...] Encounter Status:Closed by DEBRA FISHMAN on 10/26/22 [facility] 10-25-2022 CNPN Telephone ([employer]) ----- DEYSI HERNANDEZ ([id number]) 1960 F Date Time Provider Department 10/25/22 DEBRA FISHMAN [employer] During your visit today, we recorded the following information about you: Linn Solis Ma 10/25/2022 12:36 PM Signed Patient called the office very upset because today at here appointment with Kidney Medicine she was seen by another provider and it wasn't her kidney doctor. She would like Dr. Fishman call her back at [phone] because she has lots of questions that [...] Fully Assessed Reason for Visit: Patient Question [2037] Prescriptions as of 10/25/2022 - lisinopril (ZESTRIL) [...] Status:Closed by LINN SOLIS MA on 10/25/22 [facility] 10-11-2022 [facility] Telephone (WIQ) ----- DEYSI HERNANDEZ ([id number]) 1960 F Date Time Provider Department 10/11/22 CATHIE MOORE During your visit today, we recorded the following information about you: Cathie MooreFormerly [facility] 10/11/2022 12:57 PM Signed Smoking Cessation Navigation Outcome of contact: Left Message Comments: A voicemail has been left for this patient regarding Tobacco Cessation support options. If this patient has any further questions they can email us at or call us at [phone]. [employer] Residential Assistant/Smoking Cessation Navigator: Cathie Dionyrasheeda RichFormerly [facility] Allergies As of Date: 10/11/2022 Noted Allergy [...] Encounter Status:Closed by CATHIE MOORE on 10/11/22 [facility] Sami 10-09-2022 CNOV Office Visit (ELPIDIO ) ----- DEYSI HERNANDEZ ([id number]) 1960 F Date Time Provider Department 10/09/22 2:00 PM GURMEET OJEDA During your visit today, we recorded the following information about you: Temperature Pulse Blood pressure Weight 97.5 degrees 60/minute 91/60 71.3 kg Height 1.575 m Rosie Harris DO 10/09/2022 5:08 PM Signed [facility] NEPHROLOGY AND HYPERTENSION [facility] SERVICE DATE: 10/09/2022 [...] on metoprol (more content not included)... Normal [facility] URINALYSIS, REFLEX MICROSCOP ICon 10-09-2022 Bacteria LM.HPF (Urine sed) [#/Area] Few Abnormal None Seen [facility] Comment on above: Order Comment: Speci men Type: URINE SPECIMEN Ordering Facility: [facility] Address: [address] [place] [address] Performed By: #### L [id number] #### [facility] CLIA [id number] [address] [place] [address] [place] Bilirubin Ql (U) Negative Normal Negative [facility] Comment on above: Order Comment: Speci men Type: URINE SPECIMEN Ordering Facility: [facility] Address: [address] Performed By: #### L [id number] #### [facility] CLIA [id number] [facility] [place] [address] [place] Clarity (Unsp spec) Cloudy Abnormal Clear [facility] Comment on above: Order Comment: Speci men Type: URINE SPECIMEN Ordering Facility: [facility] Address: [address] [place] [address] Performed By: #### L [id number] #### [facility] CLIA [id number] [facility] [place] [address] [place] Color (U) Light Yellow Normal Yellow [facility] Comment on above: Order Comment: Speci men Type: URINE SPECIMEN Ordering Facility: [facility] Address: [address] [place] [address] Performed By: #### L [id number] #### [facility] CLIA [id number] [address] [place] [id number] [place] Epithelial cells LM.HPF (Urine sed) [#/Area] Few Normal [facility] Comment on above: Order Comment: Speci men Type: URINE SPECIMEN Ordering Facility: [facility] Address: [address] [place] [address] Performed By: #### L [id number] #### [facility] CLIA [id number] [address] [place] [address] [place] Glucose Test strip (U) [Mass/Vol] Negative Normal Trace, Negative [facility] Comment on above: Order Comment: Speci men Type: URINE SPECIMEN Ordering Facility: [facility] Address: [address] [place] [address] Performed By: #### L [id number] #### [facility] CLIA [id number] [address] [place] [address] [place] Hemoglobin Ql (U) Trace Normal Negative, Trace [facility] Comment on above: Order Comment: Speci men Type: URINE SPECIMEN Ordering Facility: [facility] Address: [address] [place] [address] Performed By: #### L [id number] #### [facility] CLIA [id number] [address] [place] [id number] [place] Ketones Ql (U) Negative Normal Negative, Trace [facility] Comment on above: Order Comment: Speci men Type: URINE SPECIMEN Ordering Facility: [facility] Address: [address] [place] [address] Performed By: #### L [id number] #### [facility] CLIA [id number] [address] [place] Leukocyte esterase Test strip Ql (U) 250 Bonnie/uL Abnormal Negative, 25 Bonnie/uL [facility] Comment on above: Order Comment: Speci men Type: URINE SPECIMEN Ordering Facility: [facility] Address: [address] [place] [address] Performed By: #### L [id number] #### [facility] CLIA [id number] [address] [place] [address] [place] Nitrite Ql (U) 2+ Abnormal Negative [facility] Comment on above: Order Comment: Speci men Type: URINE SPECIMEN Ordering Facility: [facility] Address: [address] [place] [address] Performed By: #### L [id number] #### [facility] CLIA [id number] [address] [place] [address] [place] pH (U) 5.5 [pH] Normal 5.0-8.0 [facility] Comment on above: Order Comment: Speci men Type: URINE SPECIMEN Ordering Facility: [facility] Address: [address] [place] [address] Performed By: #### L [id number] #### [facility] CLIA [id number] [address] [place] [address] [place] Protein (U) [Mass/Vol] Negative Normal Trace , Negative [facility] Comment on above: Order Comment: Speci men Type: URINE SPECIMEN Ordering Facility: [facility] Address: [address] [place], [place] [address] Performed By: #### L [id number] #### [facility] CLIA [id number] [address] [place] [address] [place] RBC LM.HPF (Urine sed) [#/Area] 0-3 /HPF Normal 0-3 /HPF [facility] Comment on above: Order Comment: Speci men Type: URINE SPECIMEN Ordering Facility: [facility] Address: [address] [place] [address] Performed By: #### L [id number] #### [facility] CLIA [id number] [address] [place] [address] [place] Specific gravity (U) [Rel density] 1.015 Normal 1.005-1.03 0 [facility] Comment on above: Order Comment: Speci men Type: URINE SPECIMEN Ordering Facility: [facility] Address: [address] [place] [address] Performed By: #### L [id number] #### [facility] CLIA [id number] [address] [place] [address] [place] Urobilinogen Ql (U) Negative Normal Negative [facility] Comment on above: Order Comment: Speci men Type: URINE SPECIMEN Ordering Facility: [facility] Address: [address] [place] [address] Performed By: #### L [id number] #### [facility] CLIA [id number] [address] [place] [address] [place] WBC LM.HPF (Urine sed) [#/Area] /[HPF] Abnormal 0-5 /HPF [facility] Comment on above: Order Comment: Speci men Type: URINE SPECIMEN Ordering Facility: [facility] Address: [address] [place] [address] Performed By: #### L [id number] #### [facility] CLIA [id number] [address] [place] [address] [place] Bacteria LM.HPF (Urine sed) [#/Area] Few Abnormal None Seen /HPF [facility] Bilirubin Ql (U) Negative Negative [facility] Clarity (Unsp spec) Cloudy Abnormal Clear [facility] Color (U) Light Yellow Yellow [facility] Epithelial cells LM.HPF (Urine sed) [#/Area] Few [facility] Glucose Test strip (U) [Mass/Vol] Negative Trace, Negative [facility] Hemoglobin Ql (U) Trace Negative, Trace [facility] Ketones Ql (U) Negative Negative, Trace [facility] Leukocyte esterase Test strip Ql (U) 250 Bonnie/uL Abnormal Negative, 25 Bonnie/uL [facility] Nitrite Ql (U) 2+ Abnormal Negative [facility] pH (U) 5.5 [pH] 5.0 - 8.0 [facility] Protein (U) [Mass/Vol] Negative Trace , Negative [facility] RBC LM.HPF (Urine sed) [#/Area] 0-3 /HPF 0-3 /HPF [facility] Specific gravity (U) [Rel density] 1.015 1.005 - 1.030 [facility] Urobilinogen Ql (U) Negative Negative [facility] W[facility] LM.HPF (Urine sed) [#/Area] /[HPF] Abnormal 0-5 /HPF [facility] 25(OH)D3 [facility] 2022 25-hydroxyvitamin D3 [Mass/Vol] 34.5 ng/mL Normal 31.0-80.0 [facility] Comment on above: Order Comment: Speci men Type: BLOOD SPECIMEN Ordering Facility: [facility] Address: [address] [address] Result Comment: Clas sification of 25 [place] Vitamin D status: Deficiency/Insufficiency: < or = 30 ng/ml. Sufficiency/Optimal Levels: 31-80 ng/mL Toxicity: > 100 ng/mL. Test performed by chemiluminescent immunoassay. Performed By: #### 1 989-3 #### [facility] CLIA [id number] [address] [place] [address] OF TRAV IMMUNOFIXATION SCREEN, SERUM on 08-23-2022 MPA RESULT No M protein is identified. Normal No M protein is identified . [facility] Comment on above: Order Comment: Speci men Type: BLOOD SPECIMEN Ordering Facility: [facility] Address: [address] [place] [address] Performed By: #### I [facility] #### [facility] CLIA [id number] [facility] [address] [place] STAFF REVIEW (MPA) Reviewed by Cortes Alfredo MD, Ph.D ([id number]) Normal [facility] Comment on above: Order Comment: Speci men Type: BLOOD SPECIMEN Ordering Facility: [facility] Address: [address] [address] Performed By: #### I FESC #### [facility] CLIA [id number] [address] [place] [address] [place] IMMUNOGLOBULINS GAMon 2022 IgA [Mass/Vol] 218 mg/dL Normal 70-400 [facility] Comment on above: Order Comment: Speci men Type: BLOOD SPECIMEN Ordering Facility: [facility] Address: [address] [place] [address] Performed By: #### S ERIMM #### [facility] CLIA [id number] [address] [place] [address] [place] IgG [Mass/Vol] 775 mg/dL Normal 700-1600 [facility] [place] [facility] Comment on above: Order Comment: Speci men Type: BLOOD SPECIMEN Ordering Facility: [facility] Address: [address] [place] [address] Performed By: #### S ERIMM #### [facility] CLIA [id number] [address] [place] [address] [place] IgM [Mass/Vol] 129 mg/dL Normal 40-230 [facility] Comment on above: Order Comment: Speci men Type: BLOOD SPECIMEN Ordering Facility: [facility] Address: [address] [place] [address] Performed By: #### S ERIMM #### [facility] CLIA [id number] [address] [place] [address] [place] KAPPA/THAO,FREE,SERon 2022 Immunoglobulin light chains.kappa.free (S) [Mass/Vol] 26.1 mg/L High 3.3-19.4 [facility] Comment on above: Order Comment: Speci men Type: BLOOD SPECIMEN Ordering Facility: [facility] Address: [address] [place] [address] Result Comment: Rare ly, increased serum free light chains levels may not be detected or accurately quantified due to prozone phenomenon or in high viscosity samples using this immunoturbidimetric assay. Correlation with other laboratory results and clinical findings is recommended. The Windber Free Light Chain was performed using the Binding Site Optilite immunoturbidimetric method. Result obtained with different assay methods or kits cannot be used interchangeably. Performed By: #### K LFRS #### [facility] CLIA [id number] [address] [place] [address] OF [facility] Immunoglobulin light chains.kappa/Immunoglo bulin light chains.lambda (S) [Mass ratio] 1.01 Normal 0.26-1.65 [facility] Comment on above: Order Comment: Speci men Type: BLOOD SPECIMEN Ordering Facility: [facility] Address: [address] [place] [address] Performed By: #### K LFRS #### [facility] CLIA [id number] [address] [place] [address] Immunoglobulin light chains.lambda.free [Mass/Vol] 25.9 mg/L Normal 5.7-26.3 [facility] Comment on above: Order Comment: Speci men Type: BLOOD SPECIMEN Ordering Facility: [facility] Address: [address] [place] [address] Result Comment: Rare ly, increased serum free [...] interchangeably. Performed By: #### K LFRS #### [facility] CLIA [id number] [address] [place] [address] [place] Renal function 2000 panelon 08-23-2022 Albumin [Mass/Vol] 4.3 g/dL Normal 3.9-4.9 [facility] Comment on above: Order Comment: Speci men Type: BLOOD SPECIMEN Ordering Facility: [facility] Address: [address] [address] Performed By: #### 2 4362-6 #### [facility] [place] [id number] [address] [place] [address] [place] Anion gap [Moles/Vol] 9 mmol/L Normal 9-18 [facility] Comment on above: Order Comment: Speci men Type: BLOOD SPECIMEN Ordering Facility: [facility] Address: [address] [address] Performed By: #### 2 4362-6 #### [facility] CLIA [id number] [place] [address] [place] Calcium [Mass/Vol] 9.9 mg/dL Normal 8.5-10.2 [facility] Comment on above: Order Comment: Speci men Type: BLOOD SPECIMEN Ordering Facility: [facility] Address: [address] [address] Performed By: #### 2 4362-6 #### [facility] [place] [id number] [place] [address] [place] Chloride [Moles/Vol] 105 mmol/L Normal 97-105 [facility] Comment on above: Order Comment: Speci men Type: BLOOD SPECIMEN Ordering Facility: [facility] Address: [address] [address] Performed By: #### 2 4362-6 #### [facility] CLIA [id number] [address] [place] [address] [place] CO2 [Moles/Vol] 25 mmol/L Normal 22-30 [facility] Comment on above: Order Comment: Speci men Type: BLOOD SPECIMEN Ordering Facility: [facility] Address: [address] Performed By: #### 2 4362-6 #### [facility] [place] [id number] [address] [place] [address] [place] Creatinine [Mass/Vol] 1.42 mg/dL High 0.58-0.96 [facility] Comment on above: Order Comment: Carmen juarez Type: BLOOD SPECIMEN Ordering Facility: [facility] Address: [address] [phone] Performed By: #### 2 4362-6 #### [facility] CLIA [id number] [address] [place] [address] [place] ESTIMATED GLOMERULAR FILTRATION RATE 42 mL/min/1.73m??? Low >=60 [facility] Comment on above: Order Comment: Carmen juarez Type: BLOOD SPECIMEN Ordering Facility: [facility] Address: [address] [id number] Result Comment: Jody mated Glomerular Filtration Rate [...] GFR. Performed By: #### 2 4362-6 #### [facility] CLIA [id number] [address] [id number] [place] Glucose [Mass/Vol] 70 mg/dL Low 74-99 [facility] Comment on above: Order Comment: Carmen juarez Type: BLOOD SPECIMEN Ordering Facility: [facility] Address: [address] [place], [place] [phone] Result Comment: The [place] [employer] (ADA) [...] 1). Performed By: #### 2 4362-6 #### [facility] IA [id number] [address] [place] [address] [place] Phosphate [Mass/Vol] 2.5 mg/dL Low 2.7-4.8 [facility] Comment on above: Order Comment: Speci men Type: BLOOD SPECIMEN Ordering Facility: [facility] Address: [address] [place] [address] Performed By: #### 2 4362-6 #### [facility] IA [id number] [address] [place] [address] [place] Potassium [Moles/Vol] 4.8 mmol/L Normal 3.7-5.1 [facility] Comment on above: Order Comment: Speci men Type: BLOOD SPECIMEN Ordering Facility: [facility] Address: [address] [place] [address] Performed By: #### 2 4362-6 #### [facility] IA [id number] [place] [address] [place] Sodium [Moles/Vol] 139 mmol/L Normal 136-144 [facility] Comment on above: Order Comment: Speci men Type: BLOOD SPECIMEN Ordering Facility: [facility] Address: [address] [place] [address] Performed By: #### 2 4362-6 #### [facility] [place] [id number] [place] [address] [place] Urea nitrogen [Mass/Vol] 18 mg/dL Normal 7-21 [facility] Comment on above: Order Comment: Speci men Type: BLOOD SPECIMEN Ordering Facility: [facility] Address: [address] [address] Performed By: #### 2 4362-6 #### [facility] IA [id number] [place] [address] [place] US KIDNEY/BLADDERon 08-24-19 23 US KIDNEY/BLADDER * * *Final Report* * * DATE OF EXAM: Aug 23 2022 2:15PM [address] KIDNEY/BLADDER / PROCEDURE REASON: Stage 3b [...] residual bladder volume 4. Right renal cyst [employer] [facility] Transcribe Date/Time: Aug 28 2022 8:25A Dictated by : ALEAH QUINN MD This examination was interpreted and the report reviewed and electronically signed by: ALEAH QUINN MD on Aug 28 2022 8:28AM EST [id number] [facility] 08-09-2022 [facility] Office Visit (ELPIDIO ) ----- DEYSI HERNANDEZ ([id number]) 1960 F Date Time Provider Department 08/09/22 3:00 PM GURMEET OJEDA During your visit today, we recorded the following information about you: Temperature Pulse Blood pressure Weight 97.7 degrees 65/minute 98/64 72.5 kg Height 1.575 m Debra Fishman MD 08/09/2022 7:02 PM Signed [facility] NEPHROLOGY AND HYPERTENSION [facility] SERVICE DATE: 08/09/2022 [...] CKD, ESRD, hearing loss. 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 Normal [facility] URINALYSIS, REFLEX MICROSCOP ICon 08-09-2022 Bilirubin Ql (U) Negative Normal [facility] Comment on above: Order Comment: Speci men Type: URINE SPECIMEN Ordering Facility: [facility] Address: [address] [place] [address] Performed By: #### L [id number] #### [facility] CLIA [id number] [address] [place] [address] [place] Clarity (Unsp spec) Clear Normal Clear [facility] Comment on above: Order Comment: Speci men Type: URINE SPECIMEN Ordering Facility: [facility] Address: [address] [address] Performed By: #### L [id number] #### [facility] CLIA [id number] [address] [place] [address] [place] Color (U) Light Yellow Normal Yellow [facility] Comment on above: Order Comment: Speci men Type: URINE SPECIMEN Ordering Facility: [facility] Address: [address] [address] Performed By: #### L [id number] #### [facility] CLIA [id number] [address] [place] [address] [place] Glucose Test strip (U) [Mass/Vol] Negative Normal Trace, Negative [facility] Comment on above: Order Comment: Speci men Type: URINE SPECIMEN Ordering Facility: [facility] Address: [address] [address] Performed By: #### L [id number] #### [facility] CLIA [id number] [address] [place] [address] [place] Hemoglobin Ql (U) Negative Normal Negative, Trace [facility] Comment on above: Order Comment: Speci men Type: URINE SPECIMEN Ordering Facility: [facility] Address: [address] [address] Performed By: #### L [id number] #### [facility] CLIA [id number] [address] [place] [address] [place] Ketones Ql (U) Negative Normal Negative, Trace [facility] Comment on above: Order Comment: Speci men Type: URINE SPECIMEN Ordering Facility: [facility] Address: [address] [place] [address] Performed By: #### L [id number] #### [facility] CLIA [id number] [address] [place] [address] [place] Leukocyte esterase Test strip Ql (U) 75 Bonnie/uL Abnormal Negative, 25 Bonnie/uL [facility] Comment on above: Order Comment: Speci men Type: URINE SPECIMEN Ordering Facility: [facility] Address: [address] [place] [address] Performed By: #### L [id number] #### [facility] CLIA [id number] [address] [place] [address] [place] Nitrite Ql (U) Negative Normal Negative [facility] Comment on above: Order Comment: Speci men Type: URINE SPECIMEN Ordering Facility: [facility] Address: [address] Performed By: #### L [id number] #### [facility] CLIA [id number] [address] [place] [address] [place] pH (U) 6.0 [pH] Normal 5.0-8.0 [facility] Comment on above: Order Comment: Speci men Type: URINE SPECIMEN Ordering Facility: [facility] Address: [address] [place], [place] [address] Performed By: #### L [id number] #### [facility] CLIA [id number] [address] [place] [address] [place] Protein (U) [Mass/Vol] Negative Normal Trace , Negative [facility] Comment on above: Order Comment: Speci men Type: URINE SPECIMEN Ordering Facility: [facility] Address: [address] [place] [address] Performed By: #### L [id number] #### [facility] CLIA [id number] [address] [place] [address] [place] Specific gravity (U) [Rel density] 1.009 Normal 1.005-1.03 0 [facility] Comment on above: Order Comment: Speci men Type: URINE SPECIMEN Ordering Facility: [facility] Address: [address] [place] [address] Performed By: #### L [id number] #### [facility] CLIA [id number] [address] [place] [address] [place] Urobilinogen Ql (U) Negative Normal Negative [facility] Comment on above: Order Comment: Speci men Type: URINE SPECIMEN Ordering Facility: [facility] Address: [address] [place] [address] Performed By: #### L [id number] #### [facility] CLIA [id number] [address] [place] [address] [place] Bilirubin Ql (U) Negative Negative [facility] Clarity (Unsp spec) Clear Clear [facility] Color (U) Light Yellow Yellow [facility] Glucose Test strip (U) [Mass/Vol] Negative Trace, Negative [facility] Hemoglobin Ql (U) Negative Negative, Trace [facility] Ketones Ql (U) Negative Negative, Trace [facility] Leukocyte esterase Test strip Ql (U) 75 Bonnie/uL Abnormal Negative, 25 Bonnie/uL [facility] Nitrite Ql (U) Negative Negative [facility] pH (U) 6.0 [pH] 5.0 - 8.0 [facility] Protein (U) [Mass/Vol] Negative Trace , Negative [facility] Specific gravity (U) [Rel density] 1.009 1.005 - 1.030 [facility] Urobilinogen Ql (U) Negative Negative [facility] LIPID PROFILEon 06-12-2022 CHOL-HDL RATIO NORM SEE BELOW Normal [facility] Comment on above: Result Comment: 3.3 - 4.4 LOW RISK 4.4 - 7.1 AVERAGE RISK 7.1 - 11.0 MODERATE RISK >11.0 HIGH RISK Performed By: #### L IPID, BMP #### [facility] [address] [address] [address] Moreno Amato Cholesterol [Mass/Vol] 178 mg/dL Normal <=200 [facility] Comment on above: Performed By: #### L IPID, BMP #### [facility] [address] [address] [address] Moreno Amato Cholesterol in HDL [Mass/Vol] 39 mg/dL Critically low 40-60 [facility] Comment on above: Performed By: #### L IPID, BMP #### [facility] [address] [address] [address] Moreno Amato Cholesterol in LDL [Mass/Vol] 92.0 mg/dL Normal [facility] Comment on above: Performed By: #### L IPID, BMP #### [facility] [address] [address] [address] Moreno Amato Cholesterol.total/Chol esterol in HDL [Mass ratio] 4.6 {ratio} Normal [facility] Comment on above: Performed By: #### L IPID, BMP #### [facility] [address] [address] [address] Moreno Amato HDL NORMAL > or = 60 mg/dl - LO W CARDIOVASCULAR RISK <40 mg/dl - HIGH CARDIOVASCULAR RISK Normal [facility] Comment on above: Performed By: #### L IPID, BMP #### [facility] [address] [address] [address] Moreno Amato LDL CALC NORMAL SEE BELOW Normal [facility] Comment on above: Result Comment: <100 mg/dl OPTIMAL 100 - 129 mg/dl NEAR OR ABOVE OPTIMAL 130 - 159 mg/dl BORDERLINE HIGH 160 - 189 mg/dl HIGH >190 mg/dl VERY HIGH Performed By: #### L IPID, BMP #### [facility] [address] [place] [address] Dr. Moreno Amato Triglyceride [Mass/Vol] 235 mg/dL Critically high <=150 [facility] Comment on above: Performed By: #### L IPID, BMP #### [facility] [address] [place] [address] Dr. Moreno Amato VLDL CALC 47.0 mg/dL Normal [facility] Comment on above: Performed By: #### L IPID, BMP #### [facility] [address] [place] [address] Dr. Moreno Amato PROF CHEM 8 (BAS METB)on Anion gap [Moles/Vol] 10.7 mmol/L Normal [facility] Comment on above: Performed By: #### L IPID, BMP #### [facility] [address] [place] [address] Dr. Moreno Amato Calcium [Mass/Vol] 9.6 mg/dL Normal 8.5-10.1 [facility] Comment on above: Performed By: #### L IPID, BMP #### [facility] [address] [place] [address] Dr. Moreno Amato Chloride [Moles/Vol] 104 mmol/L Normal 98-107 [facility] Comment on above: Performed By: #### L IPID, BMP #### [facility] [address] [place] [address] Dr. Moreno Amato CO2 [Moles/Vol] 31.6 mmol/L Normal 21.0-32.0 [facility] Comment on above: Performed By: #### L IPID, BMP #### [facility] [address] [place] [address] Dr. Moreno Amato Creatinine [Mass/Vol] 1.58 mg/dL Critically high 0.55-1.02 [facility] Comment on above: Performed By: #### L IPID, BMP #### [facility] [address] [address] [address] Moreno Amato EGFR-AF SLOVAK 40 mL/min/1.73m2 Critically low >=60 [facility] Comment on above: Performed By: #### L IPID, BMP #### [facility] [address] [address] [address] Moreno Amato EGFR-NON AF SLOVAK 33 mL/min/1.73m2 Critically low >=60 [facility] Comment on above: Performed By: #### L IPID, BMP #### [facility] [address] [address] [address] Moreno Amato Glucose [Mass/Vol] 79 mg/dL Normal 74-106 [facility] Comment on above: Performed By: #### L IPID, BMP #### [facility] [address] [place] [address] Dr. Moreno Amato Potassium [Moles/Vol] 4.3 mmol/L Normal 3.5-5.1 [facility] Comment on above: Performed By: #### L IPID, BMP #### [facility] [address] [place] [address] Dr. Moreno Amato Sodium [Moles/Vol] 142 mmol/L Normal 136-145 [facility] Comment on above: Performed By: #### L IPID, BMP #### [facility] [address] [place] [address] Dr. Moreno Amato Urea nitrogen [Mass/Vol] 21.0 mg/dL Critically high 7.0-18.0 [facility] Comment on above: Performed By: #### L IPID, BMP #### [facility] [address] [place] [address] Dr. Moreno Amato Urea nitrogen/Creatinine [Mass ratio] 13.3 mg/mg Normal [facility] Comment on above: Performed By: #### L IPID, BMP #### [facility] [address] [place] [address] Dr. Moreno Amato URINE T PROTEIN CREAT RATIOo n 06-12-2022 Protein (U) [Mass/Vol] 8.8 mg/dL Normal <=12.0 [facility] Comment on above: Performed By: #### A MY, CMP, LIPA #### [facility] [address] [address] [address] Moreno Amato UR PROT CREAT RAT 0.12 Normal [facility] Comment on above: Performed By: #### A MY, CMP, LIPA #### [facility] [address] [address] [address] Moreno Amato URINE CREAT 70.82 mg/dL Normal 20.00-300. 00 [facility] Comment on above: Performed By: #### A MY, CMP, LIPA #### [facility] [address] [place] [address] Dr. Moreno Amato HEMOGLOBINon 04-30-2022 Hemoglobin (Bld) [Mass/Vol] 15.3 g/dL Normal 12.0-16.0 [facility] Comment on above: Performed By: #### A MY, CMP, LIPA #### [facility] [address] [place] [address] Dr. Moreno Amato LIPID PROFILEon 03-27-2022 CHOL-HDL RATIO NORM SEE BELOW Normal [facility] Comment on above: Result Comment: 3.3 - 4.4 LOW RISK 4.4 - 7.1 AVERAGE RISK 7.1 - 11.0 MODERATE RISK >11.0 HIGH RISK Performed By: #### A MY, CMP, LIPA #### [facility] [address] [address] [address] Moreno Amato Cholesterol [Mass/Vol] 217 mg/dL Critically high <=200 [facility] Comment on above: Performed By: #### A MY, CMP, LIPA #### [facility] [address] [address] [address] Moreno Amato Cholesterol in HDL [Mass/Vol] 42 mg/dL Normal 40-60 [facility] Comment on above: Performed By: #### A MY, CMP, LIPA #### [facility] [address] [address] [address] Moreno Amato Cholesterol in LDL [Mass/Vol] 121.6 mg/dL Normal [facility] Comment on above: Performed By: #### A MY, CMP, LIPA #### [facility] [address] [address] [address] Moreno Amato Cholesterol.total/Chol esterol in HDL [Mass ratio] 5.2 {ratio} Normal [facility] Comment on above: Performed By: #### A MY, CMP, LIPA #### [facility] [address] [address] [address] Moreno Amato HDL NORMAL > or = 60 mg/dl - LO W CARDIOVASCULAR RISK <40 mg/dl - HIGH CARDIOVASCULAR RISK Normal [facility] Comment on above: Performed By: #### A MY, CMP, LIPA #### [facility] [address] [address] [address] Moreno Amato LDL CALC NORMAL SEE BELOW Normal [facility] Comment on above: Result Comment: <100 mg/dl OPTIMAL 100 - 129 mg/dl NEAR OR ABOVE OPTIMAL 130 - 159 mg/dl BORDERLINE HIGH 160 - 189 mg/dl HIGH >190 mg/dl VERY HIGH Performed By: #### A MY, CMP, LIPA #### [facility] [address] [address] [address] Moreno Amato Triglyceride [Mass/Vol] 267 mg/dL Critically high <=150 [facility] Comment on above: Performed By: #### A MY, CMP, LIPA #### [facility] [address] [address] [address] Moreno Amato VLDL CALC 53.4 mg/dL Normal [facility] Comment on above: Performed By: #### A MY, CMP, LIPA #### [facility] [address] [address] [address] Moreno Amato PROF CHEM 8 (BAS METB)on Anion gap [Moles/Vol] 11.1 mmol/L Normal [facility] Comment on above: Performed By: #### A MY, CMP, LIPA #### [facility] [address] [address] [address] Moreno Amato Calcium [Mass/Vol] 9.2 mg/dL Normal 8.5-10.1 [facility] Comment on above: Performed By: #### A MY, CMP, LIPA #### [facility] [address] [place] [address] Dr. Moreno Aamto Chloride [Moles/Vol] 104 mmol/L Normal 98-[address] [facility] Comment on above: Performed By: #### A MY, CMP, LIPA #### [facility] [address] [place] [address] Dr. Moreno Amato CO2 [Moles/Vol] 27.4 mmol/L Normal 21.0-32.0 [facility] Comment on above: Performed By: #### A MY, CMP, LIPA #### [facility] [address] [place] [address] Dr. Moreno Amato Creatinine [Mass/Vol] 1.30 mg/dL Critically high 0.55-1.02 [facility] Comment on above: Performed By: #### A MY, CMP, LIPA #### [facility] [address] [place] [address] Dr. Moreno Amato EGFR-AF SLOVAK 51 mL/min/1.73m2 Critically low >=[address] [facility] Comment on above: Performed By: #### A MY, CMP, LIPA #### [facility] [address] [place] [address] Dr. Moreno Amato EGFR-NON AF SLOVAK 42 mL/min/1.73m2 Critically low >=[address] [facility] Comment on above: Performed By: #### A MY, CMP, LIPA #### [facility] [address] [place] [address] Dr. Moreno Amato Glucose [Mass/Vol] 102 mg/dL Normal 74-106 [facility] Comment on above: Performed By: #### A MY, CMP, LIPA #### [facility] [address] [place] [address] Dr. Moreno Amato Potassium [Moles/Vol] 4.5 mmol/L Normal 3.5-5.[address] [facility] Comment on above: Performed By: #### A MY, CMP, LIPA #### [facility] [address] [address] [address] Moreno Amato Sodium [Moles/Vol] 138 mmol/L Normal 136-145 [facility] Comment on above: Performed By: #### A MY, CMP, LIPA #### [facility] [address] [address] [address] Moreno Amato Urea nitrogen [Mass/Vol] 23.0 mg/dL Critically high 7.0-18.0 [facility] Comment on above: Performed By: #### A MY, CMP, LIPA #### [facility] [address] [address] [address] Moreno Amato Urea nitrogen/Creatinine [Mass ratio] 17.7 mg/mg Normal [facility] Comment on above: Performed By: #### A MY, CMP, LIPA #### [facility] [address] [place] [address] Dr. Moreno Johnson 03-27-2022 AST [Catalytic activity/Vol] 24 U/L Normal 15-37 [facility] Comment on above: Performed By: #### A MY, CMP, LIPA #### [facility] [address] [place] [address] Dr. Moreno Macias 03-27-2022 ALT [Catalytic activity/Vol] 20 U/L Normal 14-59 [facility] Comment on above: Performed By: #### A MY, CMP, LIPA #### [facility] [address] [place] [address] Dr. Moreno Amato COVID/FLU RT-PCRon SARS-CoV-2 (COVID-19) RNA ELISA+probe Ql (Unsp spec) Negative [facility] Other COVID/FLU RT-PCR Negative [facility] Other Quick Strepon 03-19-2022 S. pyogenes Org specific cx Ql (Throat) Negative [employer] Other Quick Strep [facility] Other Tobacco Screening.on 01-23-2 023 Adult depression screening assessment No [facility] [address] DO Work Phone: Fall risk assessment c) Not medically indicated [facility] 250 DO Work Phone: Tobacco use status [facility] b) No [facility] DO Work Phone: PAP ACOG PANEL 2: 30 to 65on 03-02-2022 . . Normal [facility] Comment on above: Result Comment: Perf ormed at: WB Performed By: #### A MY, CMP, LIPA #### [facility] [address] [address] [address] Moreno Amato Age Gdln ACOG Testing 30-65 Normal [facility] Comment on above: Performed By: #### A MY, CMP, LIPA #### [facility] [address] [address] [address] Moreno Amato DIAGNOSIS: Comment Normal [facility] Comment on above: Result Comment: NEGA TIVE FOR INTRAEPITHELIAL LESION OR MALIGNANCY. Performed at: WB Performed By: #### A MY, CMP, LIPA #### [facility] [address] [address] [address] Moreno Amato HPV Aptima Negative Normal Negative [facility] Comment on above: Result Comment: This nucleic acid amplification test detects fourteen high-risk HPV types (16,18,31,33,35,39,45,51,52,56,58,59,66,68) without differentiation. Performed at: =G Performed By: #### A MY, CMP, LIPA #### [facility] [address] [address] [address] Moreno Amato HPV Genotype Reflex Comment Normal [facility] Comment on above: Result Comment: Crit eria not met, HPV Genotype not performed. Performed at: WB Performed By: #### A MY, CMP, LIPA #### [facility] [address] [address] [address] Moreno Amato Methodology: Comment Normal [facility] Comment on above: Result Comment: This liquid based ThinPrep(R) pap test was screened with the use of an image guided system. Performed at: WB Performed By: #### A MY, CMP, LIPA #### [facility] [address] [address] [address] Moreno Amato Note: Comment Normal [facility] Comment on above: Result Comment: The [...] #### A MY, CMP, LIPA #### [facility] [address] [address] [address] Moreno Amato Performed by: Comment Normal [facility] Comment on above: Result Comment: Maria Luisa Chou, Aircraft Delivery Checker (ASCP) Performed at: WB Performed By: #### A MY, CMP, LIPA #### [facility] [address] [address] [address] Moreno Amato Specimen adequacy: Comment Normal [facility] Comment on above: Result Comment: Sati sfactory for evaluation. Endocervical and/or squamous metaplastic cells (endocervical component) are present. Performed at: WB Performed By: #### A MY, CMP, LIPA #### [facility] [address] [address] [address] Moreno Amato XR CHEST 2 Von [...] by: AMY ROSS Date: 2022-02-19 22:40 Normal [facility] CARDIAC STRESS/REST INJE CTIONon 01-23-2022 [facility] CARDIAC STRESS/REST INJECTION Patient Name: DEYSI HERNANDEZ STUDY: MYOCARDIAL PERFUSION STRESS TEST WITH LEXISCAN Performing facility: [facility], [address] [place] [address], [address], [place] [address] [facility] Provider: Carlene Beal MD, FACC PCP: Dr. Mariann Thompson Supervising provider: Autumn Guidry RN, FRONT OFFICE SUPERVISOR INDICATION: Chest discomfort Elevated troponin Hyperlipidemia HISTORY: Gender: F; Age: 61 y/o ; Height: 0 cm; Weight: 71.4637186 kg. High Cholesterol; HTN; Chest Pain; Quit smoking <1 year ago. COMPARISON: No comparison. ACCESSION NUMBER(S): [id number]; [id number]; [id number] ORDERING CLINICIAN: MARQUEZ BEAL TECHNIQUE: ONE DAY [...] [facility] Panel Informationon 01-[address] [facility] [address] Work Phone: Tobacco Screening.on 022 Fall risk assessment a) No falls within the last year [facility] 600 DO Work Phone: Tobacco use status CPHS b) No [facility] 600 DO Work Phone: MG MAMM SCREEN 3D NIRMALA CADon 10-30-2021 MG MAMM SCREEN 3D NIRMALA CAD Patient: DEYSI HERNANDEZ Exam Date: 10/30/2021 : 1960 Gender:F Ordering : SHAIKH Ford THOMPSON . Admission #: [id number] Family : Order #: [id number] CLICK HERE TO VIEW EXAM RADIOLOGY REPORT PROCEDURE: MAMMOGRAM SCREENING 3D BILATERAL CAD COMPARISON: MG MAMM NIRMALA SCRN W CAD DIG, 12/05/2012. INDICATIONS: Screening mammography Calculator Name NCI Breast Cancer Risk Assessment Tool 5 Year Breast Cancer Risk 1.00% Lifetime Breast Cancer Risk 5.50% Personal Breast Cancer No Personal Ovarian Cancer No Treatments None Family Cancers None LOCATION: [facility] BREAST COMPOSITION: Scattered areas fibroglandular density. [...] Wade M.D. on 10/31/2021 at 08:52 Normal [facility] Cardiac Stress Teston 2021 Cardiac Stress Test [address], [address] [place] [address] Exercise Stress Test Patient Name: DEYSI HERNANDEZ Ordering Physician: [id number] Marquez Beal MD Study Date: 10/17/2021 Reading Physician: [id number] Jaycob Newman MD, [facility] MRN/PID: [id number] Supervising Physician: [id number] Jaycob Newman MD, [facility] Accession/Order#: [id number] Referring Physician: [id number] BEAL Date of : 1960 PCP: Mariann THOMPSON Gender: M Fellow: Height: 162.56 cm Nurse: Jackie Shen RN Weight: 68.95 kg Winding Machine Operator: KYLE BSA: 1.74 m2 Technologist: BMI: 26.09 kg/m2 Additional Staff: Age: 61 years cc report to: Patient Location: cc report to: [id number] Marquez Beal MD Study Type: Cardiac Stress Test Diagnosis/ICD: R07.89-Other chest pain Indication: Chest Pain Atypical Procedure/CPT: Stress Test Interpretation-[id number]; Stress Test Supervision-[id number] Falls Risk: Low: Patient has low risk [...] The adequate level of stress was achieved. [id number] Jaycob Newman MD, [facility] Electronically signed on 10/23/2021 at 12:29:13 PM Final Normal [facility] Cardiac Stress Test Please click on the link to view the study images [facility] Work Phone: Cardiac Stress Test -[facility] y 250 DO Work Phone: Creatinine and Glomerular fi ltration rate.predicted panel (S/P/Bld)Ordered By: Marquez Beal on 09-18-2021 Creatinine [Mass/Vol] 1.10 mg/dL 0.44-1.03 [facility] Estimated glomerular filtrat ion rate (GFR) non- AmericanOrdered By: Marquez Beal on 09-18-2021 GFR/1.73 sq M.predicted among non-blacks MDRD (S/P/Bld) [Vol rate/Area] 51 mL/Min [facility] No Panel InformationOrdered By: Marquez Beal on 09-18-2021 Estimated GFR () > 60 mL/Min [facility] Comment on above: GFR estimated refere nce range: According to KDOQI guidelines, <60 ml/min/1.73m2 is sufficient to diagnose a patient with chronic kidney disease. Pharmacy Creatinine Clearance (Chem N/A [facility] No Panel Informationon 09-18 9.8\S\9.8 Normal 8.2-10.2 [facility] Work Phone: Comment on above: PERFORMED BY:[id number] [place], [place] [id number] MEDICAL DIRECTORJERAMY CALDWELL M.D. 25.1\S\25.1 Normal 22.0-30.0 [facility] 250 DO Work Phone: [phone] 100\S\100 Normal 95-114 [facility] [address] DO Work Phone: [phone] 3.9\S\3.9 Normal 3.5-5.1 [facility] [address] DO Work Phone: [phone] 138\S\138 Normal 136-146 [facility] [address] DO Work Phone: [phone] > 60 Normal [facility] [address] DO Work Phone: Comment on above: GFR estimated refere nce range: According to KDOQI guidelines, <60 ml/min/1.73m2 is sufficient to diagnose a patient with chronic kidney disease. 51\S\51 Normal [facility] [address] DO Work Phone: [phone] 1.10\S\1.10 above high threshold 0.44-1.03 [facility] [address] DO Work Phone: [phone] 15\S\15 Normal 9-23 [facility] [address] DO Work Phone: [phone] 95\S\95 Normal 70-100 [facility] [address] DO Work Phone: Comment on above: Random Glucose Refer ence Range is dependent on time and content of last meal. Glucose of more than 200 mg/dL in a nonstressed, ambulatory subject supports the diagnosis of Diabetes Mellitus. ADA recommended reference range Serum or plasma calcium teagan urement (mass/volume)Ordered By: Marquez Beal on 09-18-2021 Calcium [Mass/Vol] 9.8 mg/dL 8.2-10.2 [facility] Serum or plasma chloride sophia surement (moles/volume)Ordered By: Marquez Beal on 09-18-2021 Chloride [Moles/Vol] 100 mmol/L 95-114 [facility] Serum or plasma glucose teagan urement (mass/volume)Ordered By: Marquez Beal on 09-18-2021 Glucose [Mass/Vol] 95 mg/dL 70-100 [facility] Comment on above: ADA recommended refe rence range Random Glucose Reference Range is dependent on time and content of last meal. Glucose of more than 200 mg/dL in a nonstressed, ambulatory subject supports the diagnosis of Diabetes Mellitus. Serum or plasma potassium me asurement (moles/volume)Ordered By: Marquez Beal on 09-18-2021 Potassium [Moles/Vol] 3.9 mmol/L 3.5-5.1 [facility] Serum or plasma sodium measu rement (moles/volume)Ordered By: Marquez Beal on 09-18-2021 Sodium [Moles/Vol] 138 mmol/L 136-146 [facility] Serum or plasma total carbon dioxide measurement (moles/volume)Ordered By: Marquez Beal on 09-18-2021 CO2 [Moles/Vol] 25.1 mmol/L 22.0-30.0 [facility] Serum or plasma urea nitroge n measurement (mass/volume)Ordered By: Marquez Beal on 09-18-2021 Urea nitrogen [Mass/Vol] 15 mg/dL 9-23 [facility] Tobacco Screening.on 022 Adult depression screening assessment No [facility] [address] DO Work Phone: Fall risk assessment a) No falls within the last year [facility] [address] DO Work Phone: Tobacco use status CPHS a) Yes [facility] [address] DO Work Phone: Tobacco Screening. Yes [facility] 250 DO Work Phone: Bacterial blood cultureOrder ed By: Bong Bansal on 08-19-2021 Bacteria identified Cx Nom (Bld) NO GROWTH 5 DAYS [facility] Basophils Auto (Bld) [#/Vol] Ordered By: Alaina Arce on 08-17-2021 Basophils (Bld) [#/Vol] 0.1 10*3/uL 0.0-0.2 [facility] Basophils/100 WBC Auto (Bld) Ordered By: Alaina Arce on 08-17-2021 Basophils/100 WBC (Bld) 0.7 % . [facility] Blood hemoglobin measurement (mass/volume)Ordered By: Alaina Arce on 08-17-2021 Hemoglobin (Bld) [Mass/Vol] 15.0 g/dL 11.8-15.4 [facility] Blood leukocytes automated c ount (number/volume)Ordered By: Alaina Arce on 08-17-2021 WBC (Bld) [#/Vol] 10.0 10*3/uL 4.5-11.0 [facility] Creatinine and Glomerular fi ltration rate.predicted panel (S/P/Bld)Ordered By: Alaina Arce on 08-17-2021 Creatinine [Mass/Vol] 1.27 mg/dL 0.44-1.03 [facility] Eosinophils Auto (Bld) [#/Vo l]Ordered By: Alaina Arce on 08-17-2021 Eosinophils (Bld) [#/Vol] 0.2 10*3/uL 0.0-0.45 [facility] Eosinophils/100 WBC Auto (Bl d)Ordered By: Alaina Arce on 08-17-2021 Eosinophils/100 WBC (Bld) 1.8 % . [facility] Erythrocyte distribution wid th Auto (RBC) [Ratio]Ordered By: Alaina Arce on 08-17-2021 Erythrocyte distribution width (RBC) [Ratio] 12.7 % 11.9-15.3 [facility] Estimated glomerular filtrat ion rate (GFR) non- AmericanOrdered By: Alaina Arce on 08-17-2021 GFR/1.73 sq M.predicted among non-blacks MDRD (S/P/Bld) [Vol rate/Area] 43 mL/Min [facility] Hematocrit Auto (Bld) [Volum e fraction]Ordered By: Alaina Arce on 08-17-2021 Hematocrit (Bld) [Volume fraction] 42.6 % 34.0-46.4 [facility] Laboratory - Hematology and Cell countsOrdered By: Alaina Arce on 08-17-2021 Nucleated RBC/100 WBC (Bld) [Ratio] 0.0 % 0-0.5 [facility] Lymphocytes Auto (Bld) [#/Vo l]Ordered By: Alaina Arce on 08-17-2021 Lymphocytes (Bld) [#/Vol] 2.4 10*3/uL 1.00-4.8 [facility] Lymphocytes/100 WBC Auto (Bl d)Ordered By: Alaina Arce on 08-17-2021 Lymphocytes/100 WBC (Bld) 23.7 % . [facility] MCH Auto (RBC) [Entitic mass ]Ordered By: Alaina Arce on 08-17-2021 MCH (RBC) [Entitic mass] 31.0 pg 24.7-34.3 [facility] MCHC Auto (RBC) [Mass/Vol]Or dered By: Alaina Arce on 08-17-2021 MCHC (RBC) [Mass/Vol] 35.3 g/dL 32.0-35.0 [facility] MCV Auto (RBC) [Entitic vol] Ordered By: Alaina Arce on 08-17-2021 MCV (RBC) [Entitic vol] 87.8 fL 80-100 [facility] Monocytes Auto (Bld) [#/Vol] Ordered By: Alaina Arce on 08-17-2021 Monocytes (Bld) [#/Vol] 1.0 10*3/uL 0.0-0.8 [facility] Monocytes/100 WBC Auto (Bld) Ordered By: Alaina Arce on 08-17-2021 Monocytes/100 WBC (Bld) 10.2 % . [facility] Neutrophils Auto (Bld) [#/Vo l]Ordered By: Alaina Arce on 08-17-2021 Neutrophils (Bld) [#/Vol] 6.3 10*3/uL 1.8-7.7 [facility] Neutrophils/100 WBC Auto (Bl d)Ordered By: Alaina Arce on 08-17-2021 Neutrophils/100 WBC (Bld) 63.6 % . [facility] No Panel InformationOrdered By: Alaina Arce on 08-17-2021 Estimated GFR () 52 mL/Min [facility] Comment on above: GFR estimated refere nce range: According to KDOQI guidelines, <60 ml/min/1.73m2 is sufficient to diagnose a patient with chronic kidney disease. Pharmacy Creatinine Clearance (Chem 47.54 [facility] Platelet mean volume Auto (B ld) [Entitic vol]Ordered By: Alaina Arce on 08-17-2021 Platelet mean volume (Bld) [Entitic vol] 8.5 fL 6.3-10.7 [facility] Platelets Auto (Bld) [#/Vol] Ordered By: Alaina Arce on 08-17-2021 Platelets (Bld) [#/Vol] 241 10*3/uL 150-450 [facility] RBC Auto (Bld) [#/Vol]Ordere d By: Alaina Arce on 08-17-2021 RBC (Bld) [#/Vol] 4.85 10*6/uL 3.60-5.00 [facility] Serum or plasma calcium teagan urement (mass/volume)Ordered By: Alaina Arce on 08-17-2021 Calcium [Mass/Vol] 8.9 mg/dL 8.2-10.2 [facility] Serum or plasma chloride sophia surement (moles/volume)Ordered By: Alaina Arce on 08-17-2021 Chloride [Moles/Vol] 101 mmol/L 95-114 [facility] Serum or plasma glucose teagan urement (mass/volume)Ordered By: Alaina Arce on 08-17-2021 Glucose [Mass/Vol] 132 mg/dL 70-100 [facility] Comment on above: ADA recommended refe rence range Random Glucose Reference Range is dependent on time and content of last meal. Glucose of more than 200 mg/dL in a nonstressed, ambulatory subject supports the diagnosis of Diabetes Mellitus. Serum or plasma potassium me asurement (moles/volume)Ordered By: Alaina Arce on 08-17-2021 Potassium [Moles/Vol] 2.9 mmol/L 3.5-5.1 [facility] Comment on above: Results called at 0721 on 08/17/21 Serum or plasma sodium measu rement (moles/volume)Ordered By: Alaina Arce on 08-17-2021 Sodium [Moles/Vol] 137 mmol/L 136-146 [facility] Serum or plasma total carbon dioxide measurement (moles/volume)Ordered By: Alaina Arce on 08-17-2021 CO2 [Moles/Vol] 25.3 mmol/L 22.0-30.0 [facility] Serum or plasma urea nitroge n measurement (mass/volume)Ordered By: Alaina Arce on 08-17-2021 Urea nitrogen [Mass/Vol] 17 mg/dL 9-23 [facility] Albumin [Mass/volume] in Ser um or PlasmaOrdered By: Alaina Arce on 08-16-2021 Albumin [Mass/Vol] 3.1 g/dL 3.2-5.5 [facility] Globulin Calc (S) [Mass/Vol] Ordered By: Alaina Arce on 08-16-2021 Globulin (S) [Mass/Vol] 3.0 g/dL [facility] Protein [Mass/volume] in Ser um or PlasmaOrdered By: Alaina Arce on 08-16-2021 Protein [Mass/Vol] 6.1 g/dL 6.1-7.9 [facility] Serum or plasma alanine spencer otransferase measurement without P-5'-P (enzymatic activiOrdered By: Alaina Arce on 08-16-2021 ALT No additional P-5'-P [Catalytic activity/Vol] 57 U/L 10-60 [facility] Serum or plasma albumin/glob ulin mass ratioOrdered By: Alaina Arce on 08-16-2021 Albumin/Globulin [Mass ratio] 1.0 {ratio} [facility] Serum or plasma alkaline calvin sphatase measurement (enzymatic activity/volume)Ordered By: Alaina Arce on 08-16-2021 ALP [Catalytic activity/Vol] 76 U/L 32-92 [facility] Serum or plasma aspartate am inotransferase measurement (enzymatic activity/volume)Ordered By: Alaina Arce on 08-16-2021 AST [Catalytic activity/Vol] 47 U/L 10-42 [facility] Serum or plasma total biliru bin measurement (mass/volume)Ordered By: Alaina Arce on 08-16-2021 Bilirubin [Mass/Vol] 1.5 mg/dL 0.3-1.2 [facility] Comment on above: Samples from patient s who have taken Naproxen have shown spurious elevation in Total Bilirubin levels. A metabolite of Naproxen, O-desmethylnaproxen, has been shown to interfere with the Jeneulaik-Grokimberly method for measuring Total Bilirubin. Amphetamine Screen Ql (U)Ord ered By: Alaina Arce on 08-15-2021 Amphetamines Ql (U) Negative Negative [facility] Antithrombin measurement (un its/volume) in platelet poor plasma by chromogenic methodOrdered By: Janet Hamm on 08-15-2021 Antithrombin Chromogenic method Qn (PPP) 113 % 75-135 [facility] Comment on above: Direct Xa inhibitor anticoagulants such as rivaroxaban, apixaban and edoxaban will lead to spuriously elevated antithrombin activity levels possibly masking a deficiency. Barbiturates [Presence] in U rineOrdered By: Alaina Arce on 08-15-2021 Barbiturates Ql (U) Negative Negative [facility] Benzodiazepines [Presence] i n UrineOrdered By: Alaina Arce on 08-15-2021 Benzodiazepines Ql (U) Negative Negative [facility] Beta 2 glycoprotein 1 IgG Ab [Units/volume] in SerumOrdered By: Janet Hamm on 08-15-2021 Beta 2 glycoprotein 1 IgG Qn (S) <9 0-20 [facility] Comment on above: Result Units: [...] IgM Qn (S) <9 0-32 [facility] Comment on above: Result Units: [...] Screen Ql (U) Negative Negative [facility] Comment on above: These are [...] (S) <9 GPL U/mL 0-14 [facility] Comment on above: Negative: <15 Indeterminate: 15 - 20 Low-Med Positive: >20 - 80 High Positive: >80 Cardiolipin IgM Ab [Units/vo lume] in Serum by ImmunoassayOrdered By: Janet Hamm on 08-15-2021 Cardiolipin IgM IA Qn (S) 17 MPL U/mL 0-12 [facility] Comment on above: Negative: <13 Indeterminate: 13 - 20 Low-Med Positive: >20 - 80 High Positive: >80 Cholesterol [Mass/volume] in Serum or PlasmaOrdered By: Janet Hamm on 08-15-2021 Cholesterol [Mass/Vol] 259 mg/dL 140-200 [facility] Comment on above: Chol less than 200 m g/dl low risk Chol 201-239 mg/dl borderline risk Chol 240 mg/dl and greater high risk Cholesterol in LDL Calc [Mas s/Vol]Ordered By: Janet Hamm on 08-15-2021 Cholesterol in LDL [Mass/Vol] 176 mg/dL 0-100 [facility] Comment on above: LDL ATP III CLASSIFI CATION LDL less than 100 mg/dL Optimal LDL 100-129 mg/dL Near or above optimal LDL 130-159 mg/dL Borderline high LDL 160-189 mg/dL High LDL greater than 189 mg/dL Very high Cholesterol in VLDL Calc [Ma ss/Vol]Ordered By: Janet Hamm on 08-15-2021 Cholesterol in VLDL [Mass/Vol] 32 mg/dL [facility] Dilute Vinay's viper venom timeOrdered By: Janet Hamm on 08-15-2021 dRVVT Coag (PPP) [Time] 45.5 s 0.0-47.0 [facility] Free protein S measurementOr dered By: Janet Hamm on 08-15-2021 Protein S Free Ag IA Qn (PPP) 134 % 61-136 [facility] Functional protein C measure mentOrdered By: Janet Hamm on 08-15-2021 Protein C actual/normal Chromogenic method (PPP) [Rel catalytic activity/Vol] 158 % 73-180 [facility] Laboratory - Drug toxicology Ordered By: Alaina Arce on 08-15-2021 Opiates Ql (U) Negative Negative [facility] Lupus anticoagulant [Interpr etation] in Platelet poor plasmaOrdered By: Janet Hamm on 08-15-2021 Lupus anticoagulant (PPP) [Interp] Comment: . [facility] Comment on above: No lupus anticoagula nt was detected. No Panel InformationOrdered By: Janet Hamm on 08-15-2021 Activated Protein C Resist Confirm 2.6 ratio 2.2-3.5 [facility] Comment on above: The APCR result may be falsely increased (masking an abnormal, low APCR result) in patients on direct Xa inhibitor (e.g., rivaroxaban, apixaban, edoxaban) or a direct thrombin inhibitor (e.g., dabigatran) anticoagulant therapy due to assay interference by these drugs. Phencyclidine Screen Ql (U)O rdered By: Alaina Arce on 08-15-2021 Phencyclidine Ql (U) Negative Negative [facility] Plasminogen measurementOrder ed By: Janet Hamm on 08-15-2021 Plasminogen actual/normal Chromogenic method (PPP) [Rel catalytic activity/Vol] 119 % 70-150 [facility] Platelet poor plasma ratio o f lupus anticoagulant-sensitive activated partial thromboOrdered By: Janet Hamm on 08-15-2021 aPTT.lupus sensitive.excess phospholipid actual/normal Coag (PPP) [Relative time] 38.6 sec 0.0-47.6 [facility] Prothrombin gene [id number] mut ation detectionOrdered By: Janet Hamm on 08-15-2021 F2 gene targeted mutation analysis [employer] Nom (Bld/Tiss) See comment . [facility] Comment on above: Result: c.*97G>A [...] the F2 gene and a c.1601G>A (p. [id number]) variant in the F5 gene (commonly referred to as Factor V Leiden) have an approximately 20- fold increased risk for venous thromboembolism. Risks are likely to be even higher in more complex genotype combinations involving the F2 c.*97G>A variant and Factor V Leiden (PMID: [id number]). Additional risk factors include but are not [...] health care providers to discuss results at [phone] ([phone]). Test Details: Variant analyzed: c.*97G>A, previously referred to as [id number] Methods/Limitations: DNA analysis of the F2 gene [...] developed and its performance characteristics determined by [employer]. It has not been cleared or approved by the Food and Drug Administration. References: Taj S, Briana MCLAUGHLIN, Gilberto R, Bogdan WW, Yanick WOMACK; [facility] Professional Practice and Guidelines Committee. Addendum: [employer] consensus statement on factor V Leiden mutation testing. Zoë Med. 2020Apr 22. doi: 10.1038/[id number]-m. PMID: [id number]. Edgardo KRISHNA. Prothrombin Thrombophilia. 2005Sep 11 [Updated 2020Mar 24]. In: Rober MP, Thaddeus HH, Iman RA, et al., editors. Aliyah(R) [Internet]. [place] ([place]): [facility]; 4057-0533. Available from: https://www.ncbi.nlm.nih.gov/books/XGR1326/ Ariel S, Briana MCLAUGHLIN, Aakash X, Grady B, Vidal EB, Siobhan P, Anny CS; [facility] Laboratory Electrical And Instrumentation Manager Committee. Venous thromboembolism laboratory testing (factor V Leiden and factor II c.*97G>A), 2018 update: a technical standard of the [employer] ([employer]MG). Zoë Med. 2018 Jan;20(12):0503-0227. doi: 10.1038/[id number]-q. Epub 2017Nov 22. PMID: [id number]. Evon Negron, PhD, [facility] Otis Guthrie, PhD, [facility] Rehan Goodson, PhD, [facility] Nick Bergeron, PhD, [facility] Isela Pagan, PhD, [facility] Vee W Thuo, PhD, [facility] Gregoria Carrasco, PhD, [facility] Performed at: CB - [facility] [address] [id number] Eviction Specialist: Harshad Acosta PhD, Phone: [phone] Performed at: BN - [facility] [address] [place], [place] [id number] Eviction Specialist: Veronica Ring MD, Phone: [phone] Performed at: TG - [facility] [address] [place], [place] [id number] Eviction Specialist: Becky Cabezas [facility], Phone: [phone] Serum or plasma high density lipoprotein (HDL) cholesterol measurementOrdered By: Janet Hamm on 08-15-2021 Cholesterol in HDL [Mass/Vol] 50 mg/dL 35-85 [facility] Comment on above: HDL CHOL ATP-III CLA SSIFICATION Cardiovascular Risk HDL > or equal to 60 mg/dL LOW HDL < 40 mg/dL HIGH Serum or plasma homocysteine measurement (moles/volume)Ordered By: Janet Hamm on 08-15-2021 Homocysteine [Moles/Vol] 12.8 umol/L 0.0-14.5 [facility] Serum or plasma total choles terol/high density lipoprotein (HDL) cholesterol mass ratOrdered By: Janet Hamm on 08-15-2021 Cholesterol.total/Chol esterol in HDL [Mass ratio] 5.2 {ratio} <5.0 [facility] Triglyceride [Mass/volume] i n Serum or PlasmaOrdered By: Janet Hamm on 08-15-2021 Triglyceride [Mass/Vol] 164 mg/dL 35-149 [facility] Comment on above: TRIG ATP III CLASSIF ICATION TRIG less than 150 mg/dL Normal TRIG 150-199 mg/dL Borderline high TRIG 200-500 mg/dL High TRIG greater than 500 mg/dL Very high Standard traceable to the Center for Disease Conrtrol and Prevention (CDC) test method. Urine cocaine detectionOrder ed By: Alaina Arce on 08-15-2021 Cocaine Ql (U) Negative Negative [facility] Urine culture routineOrdered By: Alaina Arce on 08-15-2021 Bacteria identified Cx Nom (U) 2 Days [facility] aPTT.lupus sensitive (LA scr een)Ordered By: Janet Hamm on 08-15-2021 aPTT.lupus sensitive Coag (PPP) [Time] 35.2 sec 0.0-51.9 [facility] aPTT.lupus sensitive/aPTT.sheryl pus sensitive W excess phospholipid (screen to confirm raOrdered By: Janet Hamm on 08-15-2021 aPTT.lupus sensitive/aPTT.lupus sensitive W excess phospholipid Coag (PPP) [Ratio] 0.94 Ratio 0.00-1.34 [facility] Activated partial thrombopla stin time (aPTT) in platelet poor plasma by coagulation aOrdered By: Bong Bansal on 08-14-2021 aPTT Coag (PPP) [Time] 28.2 s 25.1-36.5 [facility] Bacterial blood cultureOrder ed By: Bong Bansal on 08-14-2021 Bacteria identified Cx Nom (Bld) NO GROWTH 5 DAYS [facility] Creatinine [Mass/volume] in UrineOrdered By: Alaina Arce on 08-14-2021 Creatinine (U) [Mass/Vol] 74.6 mg/dL [facility] Comment on above: No reference range e stablished Glucose Glucometer (BldC) [M ass/Vol]Ordered By: Alaina Arce on 08-14-2021 Glucose [Mass/Vol] 102 mg/dL [facility] Comment on above: Random Glucose Refer ence Range is dependent on time and content of last meal. Glucose of more than 200 mg/dL in a nonstressed, ambulatory subject supports the diagnosis of Diabetes Mellitus. Glucose mean value [Mass/vol ume] in Blood Estimated from glycated hemoglobinOrdered By: Janet Hamm on 08-14-2021 Average glucose Estimated from glycated hemoglobin (Bld) [Mass/Vol] 126 mg/dL [facility] Hemoglobin A1c percentageOrd ered By: Janet Hamm on 08-14-2021 HbA1c (Bld) [Mass fraction] 6.0 % 4.3-5.6 [facility] Comment on above: Increased risk for d iabetes: 5.7 - 6.4 diabetes: >6.4 glycemic control for adults with diabetes: <7.0 Laboratory - Chemistry and C hemistry - challengeOrdered By: Alaina Arce on 08-14-2021 Magnesium [Mass/Vol] 2.3 mg/dL 1.6-2.6 [facility] - CoagulationOrde red By: Bong Bansal on 08-14-2021 PT Coag (PPP) [Time] 11.8 s 9.0-12.9 [facility] Platelet poor plasma interna tional normalized ratio (INR) by coagulation assay (relatOrdered By: Bong Bansal on 08-14-2021 INR Coag (PPP) [Relative time] 1.1 {INR} [facility] Comment on above: INR Therapeutic [...] 08-14-2021 Protein (U) [Mass/Vol] 100 mg/dL 0-9 [facility] Renin activityOrdered By: Emma Arce on 08-14-2021 Renin (P) [Catalytic activity/Vol] 27.141 ng/mL/hr 0.167-5.38 0 [facility] Comment on above: This test was develo ped and its performance characteristics determined by [facility]. It has not been cleared or approved by the Food and Drug Administration. Performed at: [facility] [address] [id number] Eviction Specialist: Veronica Ring MD, Phone: [phone] Serum or plasma aldosterone measurement (mass/volume)Ordered By: Alaina Arce on 08-14-2021 Aldosterone [Mass/Vol] 7.8 ng/dL 0.0-30.0 [facility] Comment on above: This test was develo ped and its performance characteristics determined by [facility]. It has not been cleared or approved by the Food and Drug Administration. Performed at: [address], [place], [place] [id number] Eviction Specialist: Veronica Ring MD, Phone: [phone] Urine protein/creatinine rat ioOrdered By: Alaina Arce on 08-14-2021 Protein/Creatinine (U) [Ratio] 1340 mg/g{Cre} 0-200 [facility] Urine sodium measurement (mo les/volume)Ordered By: Alaina Arce on 08-14-2021 Sodium (U) [Moles/Vol] 54.0 mmol/L F [facility] Comment on above: No reference range e stablished AMYLASEon 08-13-2021 Amylase [Catalytic activity/Vol] 80 U/L Normal 25-115 [facility] Comment on above: Performed By: #### A MY, CMP, LIPA #### [facility] [address] [place] [address] Dr. Moreno Amato Automated erythrocytes count in urine sediment (number/area)Ordered By: Alaina Arce on 08-13-2021 RBC Auto (Urine sed) [#/Area] 5-9 [HPF] 0-4 [facility] Automated leukocytes count i n urine sediment (number/area)Ordered By: Alaina Arce on 08-13-2021 WBC Auto (Urine sed) [#/Area] 20-49 [HPF] 0-4 [facility] Bilirubin Test strip Ql (U)O rdered By: Alaina Arce on 08-13-2021 Bilirubin Ql (U) Negative Negative [facility] CBC AUTO DIFFon 08-13-2021 BASO # 0.1 103/ul Normal 0.0-0.1 [facility] Comment on above: Performed By: #### C BC #### [facility] [address] [place] [address] Dr. Moreno Amato Basophils/100 WBC (Bld) 0.6 % Normal 0.2-2.0 [facility] Comment on above: Performed By: #### C BC #### [facility] [address] [place], [place] [id number] Dr. Moreno Amato EO # 0.1 103/ul Normal 0.0-0.7 [facility] Comment on above: Performed By: #### C BC #### [facility] [address] [place] [address] Dr. Moreno Amato Eosinophils/100 WBC (Bld) 0.6 % Critically low 0.9-7.0 [facility] Comment on above: Performed By: #### C BC #### [facility] [address] [place] [address] Dr. Moreno Amato Erythrocyte distribution width (RBC) [Ratio] 11.9 % Normal 11.0-15.0 [facility] Comment on above: Performed By: #### C BC #### [facility] [address] [place] [address] Dr. Moreno Amato Hematocrit (Bld) [Volume fraction] 51.0 % Critically high 36.0-48.0 [facility] Comment on above: Performed By: #### C BC #### [facility] [address] [place] [address] Dr. Moreno Amato Hemoglobin (Bld) [Mass/Vol] 18.2 g/dL Critically high 12.0-16.0 [facility] Comment on above: Performed By: #### C BC #### [facility] [address] [place] [address] Dr. Moreno Amato IG # 0.04 10e3/ul Critically high 0.00-0.03 [facility] Comment on above: Performed By: #### C BC #### [facility] [address] [place] [address] Dr. Moreno Amato IG % 0.3 % Normal 0.0-0.5 [facility] Comment on above: Performed By: #### C BC #### [facility] [address] [place] [address] Dr. Moreno Amato LYMPH # 2.2 103/ul Normal 1.2-3.[address] [facility] Comment on above: Performed By: #### C BC #### [facility] [address] [place] [address] Dr. Moreno Amato Lymphocytes/100 WBC (Bld) 17.1 % Critically low 20.5-60.0 [facility] Comment on above: Performed By: #### C BC #### [facility] [address] [place] [address] Dr. Moreno Amato MANUAL DIFF REQ NO Normal [facility] Comment on above: Performed By: #### C BC #### [facility] [address] [place] [address] Dr. Moreno Amato MCH (RBC) [Entitic mass] 30.4 pg Normal 26.7-34.[address] [facility] Comment on above: Performed By: #### C BC #### [facility] [address] [place] [address] Dr. Moreno Amato MCHC (RBC) [Mass/Vol] 35.7 g/dL Critically high 29.9-35.2 [facility] Comment on above: Performed By: #### C BC #### [facility] [address] [place] [address] Dr. Moreno Amato MCV (RBC) [Entitic vol] 85.1 fL Normal 81.0-99.0 [facility] Comment on above: Performed By: #### C BC #### [facility] [address] [place] [address] Dr. Moreno Amato MONO # 1.3 103/ul Critically high 0.3-0.8 [facility] Comment on above: Performed By: #### C BC #### [facility] [address] [place] [address] Dr. Moreno Amato Monocytes/100 WBC (Bld) 10.0 % Normal 1.7-12.[address] [facility] Comment on above: Performed By: #### C BC #### [facility] [address] [place] [address] Dr. Moreno Amato NEUT # 9.3 103/ul Critically high 1.4-6.5 [facility] Comment on above: Performed By: #### C BC #### [facility] [address] [place] [address] Dr. Moreno Amato Neutrophils/100 WBC (Bld) 71.4 % Normal 43.0-75.[address] [facility] Comment on above: Performed By: #### C BC #### [facility] [address] [place] [address] Dr. Moreno Amato Platelet mean volume (Bld) [Entitic vol] 9.8 fL Normal 9.5-13.[address] [facility] Comment on above: Performed By: #### C BC #### [facility] [address] [place] [address] Dr. Moreno Amato PLT 242 103/ul Normal 150-[address] [facility] Comment on above: Performed By: #### C BC #### [facility] [address] [place] [address] Dr. Moreno Amato RBC 5.99 106/ul Critically high 4.20-5.40 [facility] Comment on above: Performed By: #### C BC #### [facility] [address] [place] [address] Dr. Moreno Amato WBC 13.0 103/ul Critically high 4.0-11.0 [facility] Comment on above: Performed By: #### C BC #### [facility] [address] [place] [address] [address] ABD/PELVIS WO CONon [...] MANN Date: 2021-08-13 03:[address] [facility] CT STROKE HEAD WOon 08-14-19 22 [...] ROSSI Date: 2021-08-13 07:[address] [facility] CULTURE URINEon 08-13-2021 CULTURE URINE Culture Observations : LIGHT GROWTH OF MIXED GENITAL ZOE. NO POTENTIAL PATHOGENS SEEN. Normal [facility] Comment on above: Performed By: #### A MY, CMP, LIPA #### [facility] [address] [address] [address] Moreno Amato Color Auto (U)Ordered By: Emma Arce on 08-13-2021 Color (U) Yellow [facility] Covid-19 PCR (CVDTB)on 07-20 SARS-CoV-2 (COVID-19) RNA ELISA+probe Ql (Unsp spec) Not detected Normal NOT DETECTED [facility] Comment on above: Result Comment: When [...] for this test is supported by the Driver License Technician of Health and Human Service's declaration that [...] longer be used). Performed By: #### [facility] #### [facility] [address] [place] [address] Dr. Moreno Amato ER URINE PROFILEon Bilirubin Ql (U) Negative Normal NEGATIVE [facility] Comment on above: Performed By: #### NAOMI FRANCISCO #### [facility] [address] [place] [address] Dr. Moreno Amato Clarity (U) CLEAR Normal CLEAR [facility] Comment on above: Performed By: #### Rupal ALAN UMJAIRORO #### [facility] [address] [place] [address] Dr. Moreno Amato Color (U) LT. YELLOW Normal YELLOW [facility] Comment on above: Performed By: #### SULAIMAN FRANCISCORO #### [facility] [address] [place] [address] Dr. Moreno Amato ERUAHD A micrscopic examina tion will be performed if indicated. Normal [facility] Comment on above: Performed By: #### SULAIMAN FRANCISCORO #### [facility] [address] [place] [address] Dr. Moreno Amato Glucose Ql (U) Negative Normal NEGATIVE [facility] Comment on above: Performed By: #### SULAIMAN FRANCISCORO #### [facility] [address] [place] [address] Dr. Moreno Amato Hemoglobin Ql (U) MODERATE Abnormal NEGATIVE [facility] Comment on above: Performed By: #### ISHAN FRANCISCOICRO #### [facility] [address] [place] [address] Dr. Moreno Amato Ketones Ql (U) Negative Normal NEGATIVE [facility] Comment on above: Performed By: #### SULAIMAN FRANCISCORO #### [facility] [address] [place] [address] Dr. Moreno Amato LEUKOCYTES SMALL Abnormal NEGATIVE [facility] Comment on above: Performed By: #### SULAIMAN FRANCISOCRO #### [facility] [address] [place] [address] Dr. Moreno Aamto Nitrite Ql (U) Positive Abnormal NEGATIVE [facility] Comment on above: Performed By: #### SULAIMAN FRANCISCORO #### [facility] [address] [place] [address] Dr. Moreno Amato pH (U) 6.0 [pH] Normal 5-9 [facility] Comment on above: Performed By: #### SULAIMAN FRANCISCORO #### [facility] [address] [place] [address] Dr. Moreno Amato SPEC GRAVITY 1.020 Normal 1.005-<=1. 025 [facility] Comment on above: Performed By: #### ISHAN FRANCISCOICRO #### [facility] [address] [place] [address] Dr. Moreno Amato UA PROTEIN >300 Abnormal NEGATIVE/ TRACE [facility] Comment on above: Performed By: #### Rupal ALAN UMICRO #### [facility] [address] [place] [address] Dr. Moreno Amato UR MICRO IND INDICATED Normal [facility] Comment on above: Performed By: #### Rupal DAYANNA, SULAIMANRO #### [facility] [address] [place] [address] Dr. Moreno Amato Urobilinogen Qn (U) 0.2 {[place]'U}/dL Normal 0.2 - 1. 0 [facility] Comment on above: Performed By: #### E SULAIMAN ALANRO #### [facility] [address] [place] [address] Dr. Moreno Amato Ketones Auto test strip (U) [Mass/Vol]Ordered By: Alaina Arce on 08-13-2021 Ketones (U) [Mass/Vol] Negative Negative [facility] LACTATE/LACTIC ACIDon 2021 Lactate [Moles/Vol] 1.1 mmol/L Normal 0.4-1.9 [facility] Comment on above: Performed By: #### A MY, CMP, LIPA #### [facility] [address] [place] [address] Dr. Moreno Amato LIPASEon 08-13-2021 Lipase [Catalytic activity/Vol] 524.0 U/L Critically high 73.0-393.0 [facility] Comment on above: Performed By: #### A MY, CMP, LIPA #### [facility] [address] [place] [address] Dr. Moreno Amato Laboratory - Chemistry and C hemistry - challengeOrdered By: Alaina Arce on 08-13-2021 Lactate [Moles/Vol] 1.6 mmol/L 0.5-2.2 [facility] - UrinalysisOrder ed By: Alaina Arce on 08-13-2021 Hyaline casts LM Ql (Urine sed) 9-19 [LPF] 0-8 [facility] Nitrite Test strip Ql (U)Ord ered By: Alaina Arce on 08-13-2021 Nitrite Ql (U) Positive Negative [facility] POINT OF CARE GLUCOSEon 07-20 Glucose [Mass/Vol] 129 mg/dL Critically high 74-106 [facility] Comment on above: Performed By: #### A MY, CMP, LIPA #### [facility] [address] [address] [address] Moreno Amato PROF 14(COMP METB)on 022 Albumin [Mass/Vol] 3.4 g/dL Normal 3.4-5.0 [facility] Comment on above: Performed By: #### A MY, CMP, LIPA #### [facility] [address] [address] [address] Moreno Amato Albumin/Globulin [Mass ratio] 0.8 {ratio} Normal [facility] Comment on above: Performed By: #### A MY, CMP, LIPA #### [facility] [address] [address] [address] Moreno Amato ALP [Catalytic activity/Vol] 105 U/L Normal 46-116 [facility] Comment on above: Performed By: #### A MY, CMP, LIPA #### [facility] [address] [address] [address] Moreno Amato ALT [Catalytic activity/Vol] 22 U/L Normal 14-59 [facility] Comment on above: Performed By: #### A MY, CMP, LIPA #### [facility] [address] [address] [address] Moreno Amato Anion gap [Moles/Vol] 11.6 mmol/L Normal [facility] Comment on above: Performed By: #### A MY, CMP, LIPA #### [facility] [address] [address] [address] Moreno Amato AST [Catalytic activity/Vol] 22 U/L Normal 15-37 [facility] Comment on above: Performed By: #### A MY, CMP, LIPA #### [facility] [address] [address] [address] Moreno Amato Bilirubin [Mass/Vol] 0.7 mg/dL Normal 0.2-1.0 [facility] Comment on above: Performed By: #### A MY, CMP, LIPA #### [facility] [address] [address] [address] Moreno Amato Calcium [Mass/Vol] 9.6 mg/dL Normal 8.5-10.1 [facility] Comment on above: Performed By: #### A MY, CMP, LIPA #### [facility] [address] [address] [address] Moreno Amato Chloride [Moles/Vol] 97 mmol/L Critically low 98-107 [facility] Comment on above: Performed By: #### A MY, CMP, LIPA #### [facility] [address] [address] [address] Moreno Amato CO2 [Moles/Vol] 31.2 mmol/L Normal 21.0-32.0 [facility] Comment on above: Performed By: #### A MY, CMP, LIPA #### [facility] [address] [place] [address] Dr. Moreno Amato Creatinine [Mass/Vol] 1.64 mg/dL Critically high 0.55-1.02 [facility] Comment on above: Performed By: #### A MY, CMP, LIPA #### [facility] [address] [place] [address] Dr. Moreno Amato EGFR-AF SLOVAK 39 mL/min/1.73m2 Critically low >=60 [facility] Comment on above: Performed By: #### A MY, CMP, LIPA #### [facility] [address] [place] [address] Dr. Moreno Amato EGFR-NON AF SLOVAK 32 mL/min/1.73m2 Critically low >=60 [facility] Comment on above: Performed By: #### A MY, CMP, LIPA #### [facility] [address] [place] [address] Dr. Moreno Amato Globulin (S) [Mass/Vol] 4.1 g/dL Normal [facility] Comment on above: Performed By: #### A MY, CMP, LIPA #### [facility] [address] [place] [address] Dr. Moreno Amato Glucose [Mass/Vol] 110 mg/dL Critically high 74-106 [facility] Comment on above: Performed By: #### A MY, CMP, LIPA #### [facility] [address] [address] [address] Moreno Amato Potassium [Moles/Vol] 2.8 mmol/L Critically low 3.5-5.1 [facility] Comment on above: Performed By: #### A MY, CMP, LIPA #### [facility] [address] [address] [address] Moreno Amato Protein [Mass/Vol] 7.5 g/dL Normal 6.4-8.2 [facility] Comment on above: Performed By: #### A MY, CMP, LIPA #### [facility] [address] [address] [address] Moreno Amato Sodium [Moles/Vol] 137 mmol/L Normal 136-145 [facility] Comment on above: Performed By: #### A MY, CMP, LIPA #### [facility] [address] [address] [address] Moreno Amato Urea nitrogen [Mass/Vol] 26.0 mg/dL Critically high 7.0-18.0 [facility] Comment on above: Performed By: #### A MY, CMP, LIPA #### [facility] [address] [address] [address] Moreno Amato Urea nitrogen/Creatinine [Mass ratio] 15.9 mg/mg Normal [facility] Comment on above: Performed By: #### A MY, CMP, LIPA #### [facility] [address] [address] [address] Moreno Amato Protein Auto test strip (U) [Mass/Vol]Ordered By: Alaina Arce on 08-13-2021 Protein (U) [Mass/Vol] mg/dL Negative [facility] Specific gravity Auto test s trip (U) [Rel density]Ordered By: Alaina Arce on 08-13-2021 Specific gravity (U) [Rel density] 1.017 1.001-1.03 0 [facility] Squamous epithelial cells de tection in urine sediment by light microscopyOrdered By: Alaina Arce on 08-13-2021 Epithelial cells.squamous LM Ql (Urine sed) 3-4 [HPF] 0-2 [facility] TROPONIN, HIGH SENSITIVITYon 08-13-2021 HSTROP 91.0 pg/mL Critically high 4.0-51.3 [facility] Comment on above: Result Comment: CUT- OFF POINTS HAVE BEEN ESTABLISHED BASED ON THE FOURTH UNIVERSAL DEFINITIONS OF MYOCARDIAL INFARCTION. THE UPPER REFERENCE LIMIT (URL) OF TROPONIN, DEFINED THE 99TH PERCENTILE OF cTnI DISTRIBUTION IN A REFERENCE POPULATION, HAS BEEN CONFIRMED THE DECISION THRESHOLD FOR [place] DIAGNOSIS. Performed By: #### A MY, CMP, LIPA #### [facility] [address] [address] [address] Moreno Amato HSTROP 109.0 pg/mL Critically high 4.0-51.3 [facility] Comment on above: Result Comment: CUT- OFF POINTS HAVE BEEN ESTABLISHED BASED ON THE FOURTH UNIVERSAL DEFINITIONS OF MYOCARDIAL INFARCTION. THE UPPER REFERENCE LIMIT (URL) OF TROPONIN, DEFINED THE 99TH PERCENTILE OF cTnI DISTRIBUTION IN A REFERENCE POPULATION, HAS BEEN CONFIRMED THE DECISION THRESHOLD FOR [place] DIAGNOSIS. Performed By: #### H STROPN #### [facility] [address] [address] [address] Moreno Amato Troponin I.cardiac [Mass/vol ume] in Serum or Plasma by High sensitivity methodOrdered By: Alaina Arce on 08-13-2021 Troponin I.cardiac High sensitivity method [Mass/Vol] 50 pg/mL 0-15 [facility] [facility] Comment on above: Critical value result called at 1736 on 08/13/21 URINE MICROSCOPIC ONLYon BACTERIA SMALL Abnormal NONE SEEN [facility] Comment on above: Performed By: #### E RUR UMICRO #### [facility] [address] [address] [address] Moreno Amato Bacteria identified Cx Nom (U) INDICATED Normal [facility] Comment on above: Performed By: #### E RUR UMICRO #### [facility] [address] [address] [address] Moreno Amato CAST SEEN Abnormal NONE SEEN [facility] Comment on above: Performed By: #### E RUR UMICRO #### [facility] [address] [place] [address] Dr. Moreno Amato Crystals LM Nom (Urine sed) NONE SEEN Normal NONE SEEN [facility] Comment on above: Performed By: #### E RUR, UMICRO #### [facility] [address] [place] [address] Dr. Moreno Amato Epithelial cells LM Ql (Urine sed) FEW Abnormal NONE SEEN /RARE [facility] Comment on above: Performed By: #### E RUR, UMICRO #### [facility] [address] [place] [address] Dr. Moreno Amato HYALINE CAST FEW Normal [facility] Comment on above: Performed By: #### E RUR, UMICRO #### [facility] [address] [place] [address] Dr. Moreno Amato MUCOUS NONE SEEN Normal NONE SEEN [facility] Comment on above: Performed By: #### Rupal ALAN, UMICRO #### [facility] [address] [place] [address] Dr. Moreno Amato RBC 2-5 Abnormal 0-[address] [facility] Comment on above: Performed By: #### Rupal JUAREZR, UMICRO #### [facility] [address] [place] [address] Dr. Moreno Amato WBC 20-50 Abnormal NONE SEEN [facility] Comment on above: Performed By: #### E DAYANNA, UMICRO #### [facility] [address] [place] [address] Dr. Moreno Amato Urine bacteria detection by automated methodOrdered By: Alaina Arce on 08-13-2021 Bacteria Auto Ql (U) None seen None Seen [facility] Urine clarity by refractomet ry automatedOrdered By: Alaina Arce on 08-13-2021 Clarity Refractometry automated (U) Cloudy Clear [facility] Urine culture routineOrdered By: Alaina Arce on 08-13-2021 Bacteria identified Cx Nom (U) 2 Days [facility] Urine glucose measurement by automated test strip (mass/volume)Ordered By: Alaina Arce on 08-13-2021 Glucose Auto test strip (U) [Mass/Vol] Normal mg/dL Normal [facility] Urine hemoglobin detection b y automated test stripOrdered By: Alaina Arce on 08-13-2021 Hemoglobin Auto test strip Ql (U) 1+ Negative [facility] Urine leukocyte esterase det ection by automated test stripOrdered By: Alaina Arce on 08-13-2021 Leukocyte esterase Auto test strip Ql (U) 1+ Negative [facility] Urobilinogen Auto test strip (U) [Mass/Vol]Ordered By: Alaina Arce on 08-13-2021 Urobilinogen (U) [Mass/Vol] Normal mg/dL Normal [facility] XR CHEST 1 Von 08-13-2021 [...] by: Vinay MANN Date: 2021-08-13 06:28 Normal [facility] pH Auto test strip (U)Ordere d By: Alaina Arce on 08-13-2021 pH (U) 5.5 [pH] 5.0-9.0 [facility] [place]ARA DIGITAL SCREEN SELF REFERRAL W OR WO CAD BILATERALon 12-16-2020 [facility] KYARA DIGITAL SCREEN SELF REFERRAL [...] by: Uvaldo Read 12/16/20 Final result Normal [facility] Vital Signs Date Time Vital Sign Value Performing Clinician Facility 11-29-2023 13:00-0400 Diastolic blood pressure 80 mm[Hg] [facility] 11-29-2023 13:00-0400 Heart rate 68 /min [facility] 11-29-2023 13:00-0400 Mean blood pressure 92 mm[Hg] [facility] 11-29-2023 13:00-0400 Respiratory rate 16 /min [facility] 11-29-2023 13:00-0400 SaO2% (BldA) [Mass fraction] 98 % [facility] 11-29-2023 13:00-0400 Systolic blood pressure 116 mm[Hg] [facility] 11-29-2023 12:00-0400 Heart rate 71 /min [facility] 11-29-2023 12:00-0400 Respiratory rate 20 /min [facility] 11-29-2023 12:00-0400 SaO2% (BldA) [Mass fraction] 97 % [facility] 11-29-2023 12:00-0400 Systolic blood pressure 136 mm[Hg] [facility] 11-29-2023 11:53-0400 Body temperature 97.7 [degF] [facility] 11-29-2023 11:53-0400 Diastolic blood pressure 89 mm[Hg] [facility] 11-29-2023 11:53-0400 Heart rate 70 /min [facility] 11-29-2023 11:53-0400 Respiratory rate 18 /min [facility] 11-29-2023 11:53-0400 SaO2% (BldA) [Mass fraction] 96 % [facility] 11-29-2023 11:53-0400 Systolic blood pressure 149 mm[Hg] [facility] 02-14-2023 09:56-0500 Inhaled oxygen flow rate 1 L/min MD Shaikh Thompson Work Phone: [facility] 02-14-2023 08:00-0500 Body temperature 97.7 [degF] MD Shaikh Thompson Work Phone: [facility] 02-14-2023 08:00-0500 Diastolic blood pressure 69 mm[Hg] MD Shaikh Thompson Work Phone: [facility] 02-14-2023 08:00-0500 Heart rate 78 /min MD Shaikh Thompson Work Phone: [facility] 02-14-2023 08:00-0500 Respiratory rate 20 /min MD Shaikh Thompson Work Phone: [facility] 02-14-2023 08:00-0500 SaO2% (BldA) [Mass fraction] 95 % MD Shaikh Thompson Work Phone: [facility] 02-14-2023 08:00-0500 Systolic blood pressure 118 mm[Hg] MD Shaikh Thompson Work Phone: [facility] 02-14-2023 05:51-0500 Body weight 69.9 kg MD Shaikh Thompson Work Phone: [facility] 02-13-2023 12:53-0500 Body height 157.48 cm MD Shaikh Thompson Work Phone: [facility] 02-10-2023 17:00-0500 Heart rate 85 /min [facility] 02-10-2023 16:38-0500 Diastolic blood pressure 80 mm[Hg] [facility] 02-10-2023 16:38-0500 Heart rate 80 /min [facility] 02-10-2023 16:38-0500 Mean blood pressure 99 mm[Hg] [facility] 02-10-2023 16:38-0500 Respiratory rate 18 /min [facility] 02-10-2023 16:38-0500 SaO2% (BldA) [Mass fraction] 95 % [facility] 02-10-2023 16:38-0500 Systolic blood pressure 138 mm[Hg] [facility] 02-10-2023 15:40-0500 Diastolic blood pressure 92 mm[Hg] [facility] 02-10-2023 15:40-0500 Heart rate 90 /min [facility] 02-10-2023 15:40-0500 Mean blood pressure 105 mm[Hg] [facility] 02-10-2023 15:40-0500 Respiratory rate 20 /min [facility] 02-10-2023 15:40-0500 SaO2% (BldA) [Mass fraction] 94 % [facility] 02-10-2023 15:40-0500 Systolic blood pressure 132 mm[Hg] [facility] 02-10-2023 14:42-0500 Body temperature 98.24 [degF] [facility] 02-10-2023 14:42-0500 Heart rate 93 /min [facility] 02-10-2023 14:42-0500 Respiratory rate 24 /min Gabby De Oliveira [facility] 02-10-2023 14:00-0500 Blood Pressure Location Jaxson Johnson [facility] 02-10-2023 14:00-0500 Body temperature 96.8 [degF] Jaxson Johnson [facility] 02-10-2023 14:00-0500 Diastolic blood pressure 90 mm[Hg] Jaxson Johnson [facility] 02-10-2023 14:00-0500 Heart rate 88 /min Jaxson Johnson [facility] 02-10-2023 14:00-0500 SaO2% (BldA) [Mass fraction] 92 % Jaxson Johnson [facility] 02-10-2023 14:00-0500 Systolic blood pressure 140 mm[Hg] Jaxson Johnson [facility] 10-15-2022 17:36-0400 Blood Pressure Location Damion Cheek [facility] 10-15-2022 17:36-0400 Body temperature 97.34 [degF] Damion Cheek [facility] 10-15-2022 17:36-0400 Diastolic blood pressure 76 mm[Hg] Damion Cheek [facility] 10-15-2022 17:36-0400 Heart rate 60 /min Damion Cheke [facility] 10-15-2022 17:36-0400 SaO2% (BldA) [Mass fraction] 96 % [facility] 10-15-2022 17:36-0400 Systolic blood pressure 122 mm[Hg] Damion Cheek [facility] 10-09-2022 14:24-0400 Body height 157.5 cm Gurmeet Ojeda MD Work Phone: [facility] 10-09-2022 14:24-0400 Body temperature 97.5 [degF] Gurmeet Ojeda MD Work Phone: [facility] 10-09-2022 14:24-0400 Body weight 71.26 kg Gurmeet Ojeda MD Work Phone: [facility] 10-09-2022 14:24-0400 Diastolic blood pressure 60 mm[Hg] Gurmeet Ojeda MD Work Phone: [facility] 10-09-2022 14:24-0400 Heart rate 60 /min Gurmeet Ojeda MD Work Phone: [facility] 10-09-2022 14:24-0400 Systolic blood pressure 91 mm[Hg] Gurmeet Ojeda MD Work Phone: [facility] 08-09-2022 14:56-0400 Body height 157.5 cm Gurmeet Ojeda MD Work Phone: [facility] 08-09-2022 14:56-0400 Body temperature 97.7 [degF] Gurmeet Ojeda MD Work Phone: [facility] 08-09-2022 14:56-0400 Body weight 72.53 kg Gurmeet Ojeda MD Work Phone: [facility] 08-09-2022 14:56-0400 Diastolic blood pressure 64 mm[Hg] Gurmeet Ojeda MD Work Phone: [facility] 08-09-2022 14:56-0400 Heart rate 65 /min Gurmeet Ojeda MD Work Phone: [facility] 08-09-2022 14:56-0400 Systolic blood pressure 98 mm[Hg] Gurmeet Ojeda MD Work Phone: [facility] 06-14-2022 12:57-0400 Blood Pressure Location Ayala SALAM [facility] 06-14-2022 12:57-0400 Diastolic blood pressure 74 mm[Hg] Ayala SALAM [facility] 06-14-2022 12:57-0400 Heart rate 80 /min Ayala SALAM [facility] 06-14-2022 12:57-0400 Respiratory rate 16 /min Ayala SALAM [facility] 06-14-2022 12:57-0400 Systolic blood pressure 118 mm[Hg] Ayala SALAM [facility] 06-06-2022 10:13-0400 Blood Pressure Location TRUDY NGUYỄN [facility] 06-06-2022 10:13-0400 Diastolic blood pressure 88 mm[Hg] TRUDY NGUYỄN [facility] 06-06-2022 10:13-0400 Heart rate 74 /min TRUDY NGUYỄN [facility] 06-06-2022 10:13-0400 Systolic blood pressure 144 mm[Hg] TRUDY NGUYỄN [facility] 05-23-2022 10:41-0400 Blood Pressure Location TRUDY NGUYỄN [facility] 05-23-2022 10:41-0400 Diastolic blood pressure 85 mm[Hg] TRUDY NGUYỄN [facility] 05-23-2022 10:41-0400 Heart rate 72 /min TRUDY NGUYỄN [facility] 05-23-2022 10:41-0400 Systolic blood pressure 127 mm[Hg] TRUDY NGUYỄN [facility] 04-11-2022 11:01-0500 Blood Pressure Location TRUDY NGUYỄN [facility] 04-11-2022 11:01-0500 Diastolic blood pressure 88 mm[Hg] TURDY NGUYỄN [facility] 04-11-2022 11:01-0500 Heart rate 71 /min TRUDY NGUYỄN [facility] 04-11-2022 11:01-0500 Systolic blood pressure 146 mm[Hg] TRUDY NGUYỄN [facility] 03-19-2022 16:35-0500 Body height 163.83 cm Padmini Sam Other [employer] [facility] [place] Other 03-19-2022 16:35-0500 Body mass index (BMI) [Ratio] 27.37 kg/m2 Padmini Sam Other [employer] Other 03-19-2022 16:35-0500 Body temperature 98.9 [degF] Padmini Sam Other [employer] Other 03-19-2022 16:35-0500 Body weight 73.48 kg Padmini Sam Other [employer] Other 03-19-2022 16:35-0500 Respiratory rate 18 /min Padmini Sam Other [facility] [place] Other 03-19-2022 16:35-0500 SaO2% (BldA) [Mass fraction] 96 % Padmini Sam Other [facility] [place] Other 03-13-2022 10:12-0500 Diastolic blood pressure 59 mm[Hg] MD Shaikh Thompson Work Phone: [facility] 03-13-2022 10:12-0500 Heart rate 77 /min MD Shaikh Thompson Work Phone: [facility] 03-13-2022 10:12-0500 Respiratory rate 18 /min MD Shaikh Thompson Work Phone: [facility] 03-13-2022 10:12-0500 SaO2% (BldA) [Mass fraction] 98 % MD Shaikh Thompson Work Phone: [facility] 03-13-2022 10:12-0500 Systolic blood pressure 93 mm[Hg] MD Shaikh Thompson Work Phone: [facility] 03-13-2022 07:54-0500 Body height 162.56 cm MD Shaikh Thompson Work Phone: [facility] 03-13-2022 07:54-0500 Body temperature 98 [degF] MD Shaikh Thompson Work Phone: [facility] 03-13-2022 07:54-0500 Body weight 73.48 kg MD Shaikh Thompson Work Phone: [facility] 03-12-2022 08:58-0500 Body height 160.02 cm Shaikh Donna Work Phone: [facility] [address] DO Work Phone: 03-12-2022 08:58-0500 Body mass index (BMI) [Ratio] 28.7 kg/m2 Shaikh Lewiswad Work Phone: [facility] 250 DO Work Phone: 03-12-2022 08:58-0500 Body surface area Derived from formula 1.77 m2 Shaikh Lewiswad Work Phone: [facility] 250 DO Work Phone: 03-12-2022 08:58-0500 Body weight 73.48 kg Shaikh Lewiswad Work Phone: [facility] 250 DO Work Phone: 03-12-2022 08:58-0500 Diastolic blood pressure 78 mm[Hg] Shaikh Lewiswad Work Phone: [facility] DO Work Phone: 03-12-2022 08:58-0500 Heart rate 66 /min Shaikh Lewiswad Work Phone: [facility] 250 DO Work Phone: 03-12-2022 08:58-0500 Systolic blood pressure 110 mm[Hg] Shaikh Lewiswad Work Phone: [facility] 250 DO Work Phone: 01-23-2022 12:00-0500 72 1 Shaikh Lewiswad Work Phone: [facility] [place] Work Phone: Comment on above: [id number] 11-09-2021 13:26-0400 Body height 160.02 cm Shaikh Lewiswad Work Phone: [facility] DO Work Phone: 11-09-2021 13:26-0400 Body mass index (BMI) [Ratio] 27.83 kg/m2 Shaikh Felywwad Work Phone: [facility] DO Work Phone: 11-09-2021 13:26-0400 Body surface area Derived from formula 1.75 m2 Dunbar Felywwad Work Phone: [facility] DO Work Phone: 11-09-2021 13:26-0400 Body weight 71.27 kg Shaikh Lewiswad Work Phone: [facility] DO Work Phone: 11-09-2021 13:26-0400 Diastolic blood pressure 82 mm[Hg] Dunbar Felywwad Work Phone: [facility] DO Work Phone: 11-09-2021 13:26-0400 Heart rate 64 /min Shaikh Lewiswad Work Phone: [facility] DO Work Phone: 11-09-2021 13:26-0400 Systolic blood pressure 128 mm[Hg] Shaikh Felywwad Work Phone: [facility] DO Work Phone: 09-18-2021 10:26-0400 Diastolic blood pressure 80 mm[Hg] Dunbar Fawwad Work Phone: [facility] 250 DO Work Phone: 09-18-2021 10:26-0400 Systolic blood pressure 178 mm[Hg] Dunbar Fawwad Work Phone: [facility] 250 DO Work Phone: 09-18-2021 10:19-0400 Body height 162.56 cm Dunbar Fawwad Work Phone: [facility] DO Work Phone: 09-18-2021 10:19-0400 Body mass index (BMI) [Ratio] 26.09 kg/m2 Shaikh Donna Work Phone: [facility] 250 DO Work Phone: 09-18-2021 10:19-0400 Body surface area Derived from formula 1.74 m2 Shaikh Donna Work Phone: [facility] 250 DO Work Phone: 09-18-2021 10:19-0400 Body weight 68.95 kg Shaikh Donna Work Phone: [facility] 250 DO Work Phone: 09-18-2021 10:19-0400 Diastolic blood pressure 80 mm[Hg] Shaikh Donna Work Phone: [facility] DO Work Phone: 09-18-2021 10:19-0400 Heart rate 60 /min Shaikh Donna Work Phone: [facility] 250 DO Work Phone: 09-18-2021 10:19-0400 Systolic blood pressure 180 mm[Hg] Shaikh Donna Work Phone: [facility] DO Work Phone: 08-23-2021 14:00-0400 Body temperature 98.9 [degF] Linn Missler Other [employer] Other 08-23-2021 14:00-0400 Body weight 66.13 kg Linn Missler Other [employer] Other 08-23-2021 14:00-0400 Diastolic blood pressure 87 mm[Hg] Linn Missler Other [employer] Other 08-23-2021 14:00-0400 Respiratory rate 18 /min Linn Missler Other [employer] Other 08-23-2021 14:00-0400 SaO2% (BldA) [Mass fraction] 96 % Linn Missler Other [employer] Other 08-23-2021 14:00-0400 Systolic blood pressure 137 mm[Hg] Linn Missler Other [employer] Other 08-17-2021 12:00-0400 Diastolic blood pressure 94 mm[Hg] PHYSICIAN NO [facility] 08-17-2021 12:00-0400 Heart rate 78 /min PHYSICIAN [facility] 08-17-2021 12:00-0400 Respiratory rate 18 /min PHYSICIAN [facility] 08-17-2021 12:00-0400 SaO2% (BldA) [Mass fraction] 95 % PHYSICIAN [facility] 08-17-2021 12:00-0400 Systolic blood pressure 152 mm[Hg] PHYSICIAN [facility] 08-17-2021 08:00-0400 Body temperature 97.5 [degF] PHYSICIAN [facility] 08-17-2021 05:57-0400 Body weight 75.8 kg PHYSICIAN [facility] 08-17-2021 00:44-0400 Inhaled oxygen flow rate 2 L/min PHYSICIAN [facility] 08-16-2021 14:43-0400 Body height 162.56 cm PHYSICIAN [facility] 08-16-2021 14:43-0400 Body mass index (BMI) [Ratio] 25.6 kg/m2 PHYSICIAN [facility] Encounters Encounter Date Encounter Type Care Provider Facility Start: 01-01-2024 ambulatory Dereck Horowitz ty:[facility] Start: 11-29-2023 End: 11-29-2023 Emergency department patient visit Gabby De Oliveira Facility:[facility] Start: 08-12-2023 End: 08-12-2023 ambulatory FAIselaWAD Not Available Start: 07-30-2023 End: 07-30-2023 ambulatory DUNBAR FAWWAD Not Available Start: 06-17-2023 End: 06-17-2023 ambulatory DUNBAR FAWWAD Not Available Start: 06-04-2023 End: 06-04-2023 ambulatory ROSEI BLANCHARD Not Available Start: 06-03-2023 End: 06-03-2023 ambulatory YULIANA ADRIAN Facility: [facility] Start: 06-03-2023 End: 06-03-2023 Patient encounter procedure TRUDY ADRIAN [facility] Start: 05-17-2023 End: 05-17-2023 ambulatory ROSIE BLANCHARD Not Available Start: 05-13-2023 End: 05-13-2023 ambulatory SHAIKH FELYPOLOD Not Available Start: 03-12-2023 End: 03-12-2023 ambulatory Marquez Beal Facility:[facility] Start: 03-12-2023 End: 03-12-2023 ambulatory MD Shaikh Thompson Work Phone: [facility] Work Phone: Start: 03-12-2023 End: 03-12-2023 Patient encounter procedure MD Shaikh Thompson Work Phone: [facility] [place] Work Phone: Start: 03-12-2023 End: 03-12-2023 ambulatory MARQUEZ Erazo [facility] Start: 02-19-2023 End: 02-19-2023 ambulatory DUNBAR LEWISWAD Not Available Start: 02-12-2023 End: 02-14-2023 Evaluation and management of inpatient Jacques East Facility:[facility] Start: 02-12-2023 End: 02-14-2023 Evaluation and management of inpatient MD Shaikh Thompson Work Phone: [facility] Work Phone: Start: 02-10-2023 End: 02-10-2023 Lab Drop off Jaxson Johnson [facility] Start: 02-10-2023 End: 02-10-2023 Emergency department patient visit Gabby De Oliveira [facility] Start: 02-10-2023 End: 02-10-2023 ambulatory Jaxson Johnson Facility:[facility] Start: 02-10-2023 End: 02-10-2023 Patient encounter procedure Jaxson Johnson [facility] Start: 01-30-2023 End: 01-30-2023 ambulatory PA-C TRUDY ADRIAN Facility:[facility] Start: 01-30-2023 End: 01-30-2023 Patient encounter procedure TRUDY ADRIAN [facility] Start: 10-29-2022 Orders Only Debra [...] End: 10-15-2022 Lab Drop off Damion Cheek [facility] Start: 10-15-2022 End: 10-15-2022 Patient encounter procedure Damion Cheek [facility] Start: 10-15-2022 Rx Renewal Shaikh Donna Work Phone: [facility] DO Work Phone: Start: 10-09-2022 End: 10-10-2022 ambulatory Rosie Kimberly DO Work Phone: [facility] Start: 10-09-2022 End: 10-09-2022 Patient encounter procedure Gurmeet Ojeda MD Work Phone: [facility] Comment on above: Stage 3 chronic kidn ey disease, unspecified whether stage 3a or 3b CKD (HCC) (Primary Dx); Tobacco abuse; Hypertension, renal disease; Mixed hyperlipidemia; Atrophic kidney, acquired Start: 08-23-2022 End: 08-24-2022 ambulatory DEBRA FISHMAN Facility:[facility] Start: 08-09-2022 End: 08-09-2022 Patient encounter procedure Gurmeet Ojeda MD Work Phone: [facility] Comment on above: Stage 3b chronic kid domingo disease (HCC) (Primary Dx); Hypertension, unspecified type; Orthostatic hypotension; Alkalosis; Hypercholesteremia Start: 08-09-2022 End: 08-10-2022 ambulatory Debra Fishman MD Work Phone: [facility] Start: 06-19-2022 ambulatory SHAIKH Enrique THOMPSON Facilit y:[facility] Start: 06-14-2022 End: 06-14-2022 Patient encounter procedure Jamie BILLS [facility] Start: 06-12-2022 End: 06-13-2022 ambulatory DUNBARWILLOW THOMPSON Facility:[facility] Start: 06-06-2022 End: 06-06-2022 Patient encounter procedure TRUDY ADRIAN [facility] Start: 05-23-2022 End: 05-23-2022 Patient encounter procedure TRUDY ADRIAN [facility] Start: 04-30-2022 End: 05-01-2022 ambulatory SHAIKH Enrique THOMPSON Facility:[facility] Start: 04-11-2022 End: 04-11-2022 Patient encounter procedure TRUDY ADRIAN [facility] Joe Start: 04-05-2022 End: 04-05-2022 ambulatory Kevyn Sharma Other [employer] Other Start: 04-05-2022 Telephone encounter Kevyn Carmichael ck [employer] Assistant Controller Start: 03-27-2022 End: 03-28-[address] MARQUEZ BEAL Facility:[facility] Start: 03-19-2022 End: 03-19-2022 ambulatory Padmini Sam Other [employer] Other Start: 03-19-2022 Office outpatient vi sit 15 minutes Padmini Sam [facility] Start: 03-13-2022 End: 03-13-2022 Admission to same day surgery center MD Shaikh Thompson Work Phone: [facility] Work Phone: Start: 03-13-2022 End: 03-13-2022 ambulatory MD Shaikh Thompson Work Phone: [facility] Work Phone: Start: 03-12-2022 Office outpatient vi sit 25 minutes Dunbar Fawwad Work Phone: [facility] DO Work Phone: Start: 02-26-2022 End: 02-26-[address] XAVIER STAFFORD . Facility:[facility] Start: 02-19-2022 End: 02-20-2022 ambulatory DUNBAR Enrique FAWWAD Facility:[facility] Start: 01-29-2022 Chart Update Dunbar Fawwad Work Phone: [facility] DO Work Phone: Start: 01-23-[address] Marquez Beal II Facility:[id number] Start: 01-23-2022 Patient encounter procedure Dunbar Felywwad Work Phone: [facility] DO Work Phone: Start: 11-16-2021 Rx Renewal Dunbar Felywwad Work Phone: [facility] DO Work Phone: Start: 11-09-2021 ambulatory Marquez Beal II Facility: Start: 10-30-2021 End: 10-31-2021 ambulatory DUNBAR Enrique SAUCEDOWAD Facility:[facility] Start: 10-24-2021 Chart Update Dunbar Fawwad Work Phone: [facility] 250 DO Work Phone: Start: 10-17-[address] Marquez Beal II Facility:[id number] Start: 09-18-2021 ambulatory Marquez Beal II Facility: Start: 09-18-2021 Office outpatient vi sit 25 minutes Dunbar Fawwad Work Phone: [facility] 250 DO Work Phone: Start: 09-18-2021 End: 09-18-2021 Patient encounter procedure PHYSICIAN NO [facility] Main [place] Start: 09-18-2021 ambulatory Marquez Beal II Faci lity:[id number] Start: 08-23-2021 ([facility] CHUCK) [facility] Start: 08-23-2021 End: 08-23-2021 ambulatory Linn Byrne Other Colibrí Other Start: 08-23-2021 End: 08-23-2021 Patient encounter procedure PHYSICIAN NO [facility] Start: 08-17-2021 End: 08-17-2021 Patient encounter procedure PHYSICIAN NO [facility]-Electrodiagnostics Start: 08-17-2021 ambulatory Marquez Beal II Facility:[id number] Start: 08-16-[address] Jaycob Newman Facility:[id number] Start: 08-15-2021 ambulatory Marquez Beal II Facility:[id number] Start: 08-14-2021 ambulatory Marquez Beal II Facility:[id number] Start: 08-13-2021 End: 08-17-2021 Evaluation and management of inpatient PHYSICIAN NO [facility] Start: 08-13-2021 End: 08-13-2021 ambulatory Marquez Beal II Facility:[id number] Start: 12-08-2020 End: 12-11-2020 ambulatory ALEXANDR Lynnette [facility] Start: 12-08-2020 End: 12-10-2020 Subsequent hospital visit by physician [facility] Mammo [facility] Mammography Comment on above: Encounter for screen [...] 3b CKD (HCC) Expected: 10/10/2023, Expires: 12/10/2023 [facility] Work Phone: Comment on above: Expected: 10/10/2023 , Expires: 12/10/2023 Start: 08-24-2023 SERUM CREATININE SERUM CREATININE Cl [facility] Start: 03-12-2023 FUV, Provider: Marquez Beal, Status: Molina, Time: 11:00 AM FUV, Provider: Marquez Beal, Status: Molina, Time: 11:00 AM [facility] DO Work Phone: Start: 02-14-2023 [facility] Start: 02-12-2023 Microbial culture of sputum [facility] Start: 02-12-2023 Aerobic microbial culture Aerobic Cu lture [facility] Start: 02-12-2023 Hospital admission [facility] Start: 02-12-2023 [facility] Start: 10-19-2022 Influenza vaccination C [facility] Start: 08-09-2022 End: 10-09-2022 25-hydroxyvitamin D3 [Mass/volume] in Serum or Plasma VITAMIN D 25 HYDROXY Lab Routine Stage 3b chronic kidney disease (HCC) Expected: 08/09/2022, Expires: 10/09/2022 [facility] Work Phone: Comment on above: Expected: 08/09/2022 , Expires: 10/09/2022 Start: 08-09-2022 End: 10-09-2022 MONOCLONAL PROTEIN, SERUM (BLOOD) MONOCLONAL PROTEIN, SERUM (BLOOD) Lab Routine Stage 3b chronic kidney disease (HCC) Expected: 08/09/2022, Expires: 10/09/2022 [facility] Work Phone: Comment on above: Expected: 08/09/2022 , Expires: 10/09/2022 Start: 08-09-2022 End: 10-09-2022 Renal function 2000 panel - Serum or Plasma RENAL FUNCTION PANEL Lab Routine Stage 3b chronic kidney disease (HCC) Expected: 08/09/2022, Expires: 10/09/2022 [facility] Work Phone: Comment on above: Expected: 08/09/2022 , Expires: 10/09/2022 Start: 03-13-2022 [facility] Start: 03-12-2022 FUV, Provider: Marquez Beal, Status: Pen, Time: 8:30 AM FUV, Provider: Marquez Beal, Status: Pen, Time: 8:30 AM -[facility] 250 DO Work Phone: Start: 02-18-2022 DEPRESSION ASSESSMENT DEPRESSION ASS ESSMENT [facility] Start: 12-21-2021 FUV, Provider: Marquez Beal, Status: Pen, Time: 12:50 PM FUV, Provider: Marquez Beal, Status: Pen, Time: 12:50 PM -[facility] 600 DO Work Phone: Start: 12-08-2021 Mammography MAMMOGRAM [facility] Start: 11-22-2021 STRESS NUC, Provider : TRENA HHVI NUCLEAR 01,[id number], Status: Pen, Time: 12:00 PM STRESS NUC, Provider: TRENA HHVI NUCLEAR 01,[id number], Status: Pen, Time: 12:00 PM -[facility] 600 DO Work Phone: Start: 11-22-2021 NURSEVST, Provider: KAYLEN ANAND INTERNAL REVENUE SERVICE AGENT 1,[id number], Status: Pen, Time: 10:30 AM NURSEVST, Provider: KAYLEN ANAND INTERNAL REVENUE SERVICE AGENT 1,[id number], Status: Pen, Time: 10:30 AM -[facility] 600 DO Work Phone: Start: 11-09-2021 FUV, Provider: Marquez Beal, Status: Pen, Time: 1:10 PM FUV, Provider: Marquez Beal, Status: Pen, Time: 1:[address] [facility] Work Phone: Start: 10-17-2021 STRESS IVAN, Provider : TRENA HHVI NUCLEAR 01,[id number], Status: Pen, Time: 2:00 PM STRESS IVAN, Provider: TRENA HHVI NUCLEAR 01,[id number], Status: Pen, Time: 2:00 PM [facility] DO Work Phone: Start: 08-17-2021 [facility] Work Phone: Start: 08-14-[address] [facility] Work Phone: Start: 08-14-2021 Blood culture for bacteria, including anaerobic screen Blood Culture [facility] Start: 08-14-2021 [facility] Work Phone: Start: 08-13-2021 Ultrasonography of R ight and Left Heart, Transesophageal Ultrasonography of Right and Left Heart, Transesophageal [facility] Start: 08-13-2021 Hospital admission [facility] Work Phone: Start: 08-13-2021 Referral to flooring helper [facility] Work Phone: Start: 03-27-2021 Colonoscopy COLONOSCOPY [facility] Start: 03-27-2021 COLORECTAL CANCER SCREENING COLORECTAL CANCER SCREENING [facility] Start: 03-11-2021 COVID-19 VACCINE (4 - Booster for Pfizer series) COVID-19 VACCINE (4 - Booster for Pfizer series) [facility] Start: 03-11-2021 COVID-19 VACCINE (4 - Pfizer series) COVID-19 VACCINE (4 - Pfizer series) [facility] Start: 02-07-2021 HPV TESTING HPV TESTING [facility] Start: 02-07-2021 PAP TESTING PAP TESTING [facility] Start: 10-19-2020 Influenza vaccination Flu vaccine (# 1) [employer] Phone: Start: 03-14-2017 HEMOGLOBIN/HEMATOCRIT HEMOGLOBIN/HEM ATOCRIT [facility] Start: 2012 Screening for malign ant neoplasm of breast Breast cancer screen [facility] Phone: Start: 2012 Shingles Vaccine (1 of 2) Herring gles Vaccine (1 of 2) [employer] Phone: Start: 2012 SHINGRIX VACCINE (1 of 2) HERRING GRIX VACCINE (1 of 2) [facility] Start: 05-12-2007 COLOGUARD (FIT-DNA) COLOGUARD (FIT-D NA) [facility] Start: 05-12-[address] COLONOGRAPHY [facility] Start: 05-12-2007 DIABETES SCREEN DIABETES SCREEN [facility] Start: 05-12-2007 FECAL OCCULT BLOOD FECAL OCCULT BLOO D [facility] Start: 05-12-2007 LIPID SCREEN LIPID SCREEN [facility] Start: 05-12-2007 Screening for malign ant neoplasm of colon Colon cancer screen colonoscopy [facility] Work Phone: Start: 05-12-2007 SIGMOIDOSCOPY SIGMOIDOSCOPY [facility] Start: 2002 Lipid panel Lipid screen [facility] Work Phone: Start: 1992 Screening for malign ant neoplasm of cervix [facility] [employer] Phone: Start: 05-12-1983 Screening for malign ant neoplasm of cervix Pap smear [facility] [employer] Phone: Start: 1981 DTaP/Tdap/Td vaccine (1 - Tdap) DTaP/Tdap/Td vaccine (1 - Tdap) [facility] [employer] Phone: Start: 1981 Urine microalbumin profile DTAP,TDAP,TD (1 - Tdap) [facility] Start: 1980 ANNUAL PCP TEAM COLOR SPRAYER ZEFERINO DISEASE VISIT ANNUAL PCP TEAM CHRONIC DISEASE VISIT [facility] Start: 1980 HEPATITIS C SCREENING HEPATITIS C [facility] Start: 1980 HIV SCREENING HIV SCREENING [facility] Start: 1977 HIV screening HIV screen [facility] Work Phone: Start: 1962 Hepatitis C screening Hepatitis C [facility] Work Phone: Activated protein C resistance assay [facility] Work Phone: Antithrombin [Units/volume] in Platelet poor plasma by Chromogenic method [facility] Work Phone: aPTT.lupus sensitive (LA screen) [facility] Work Phone: aPTT.lupus sensitive W excess phospholipid actual/Normal (normalized LA confirm) [facility] Work Phone: aPTT.lupus sensitive/aPTT.lupus sensitive W excess phospholipid (screen to confirm ra [facility] Work Phone: Beta 2 glycoprotein 1 IgG Ab [Units/volume] in Serum [facility] Work Phone: Beta 2 glycoprotein 1 IgM Ab [Units/volume] in Serum [facility] Work Phone: Cardiolipin IgG Ab [Units/volume] in Serum by Immunoassay [facility] Work Phone: Cardiolipin IgM Ab [Units/volume] in Serum by Immunoassay [facility] Work Phone: dRVVT (LA screen) [facility] Work Phone: F2 gene mutations fo und [Identifier] in Blood or Tissue by Molecular genetics method Nominal [facility] Work Phone: Homocysteine [Moles/volume] in Serum or Plasma [facility] Work Phone: Lupus anticoagulant [Interpretation] in Platelet poor plasma [facility] Work Phone: End: 12-08-2020 BERTA KYARA DIGITAL SCREEN SELF REFERRAL W OR WO CAD BILATERAL BERTA KYARA DIGITAL SCREEN SELF REFERRAL W OR WO CAD BILATERAL Imaging Routine Encounter for screening mammogram for malignant neoplasm of breast 1 Occurrences starting 12/08/2020 until 12/08/2020 [email or web address] Work Phone: Comment on above: 1 Occurrences starti ng 12/08/2020 until 12/08/2020 BERTA KYARA DIGITAL SCR EEN SELF REFERRAL W OR WO CAD BILATERAL BERTA KYARA DIGITAL SCREEN SELF REFERRAL W OR WO CAD BILATERAL Imaging Routine Encounter for screening mammogram for malignant neoplasm of breast 12/08/2020 1:30 PM EDT [email or web address] Work Phone: Patient Education [facility] Work Phone: Patient referral [facility] Work Phone: Plasminogen assay [facility] Work Phone: Protein C actual/nor mal in Platelet poor plasma by Chromogenic method [facility] Work Phone: Protein S Free Ag [Units/volume] in Platelet poor plasma by Immunoassay [facility] Work Phone: Renin [Enzymatic activity/volume] in Plasma [facility] Work Phone: End: 09-08-2023 US KIDNEY/BLADDER US KIDNEY/BLADDER Radiology Routine Stage 3b chronic kidney disease (HCC) 1 Occurrences starting 08/09/2022 until 09/08/2023 [facility] Work Phone: Comment on above: 1 Occurrences starti ng 08/09/2022 until 09/08/2023 [facility] Immunizations Immunization Date Immunization Notes Care Provider Fely shirley 01-14-2021 Pfizer-BioNTech COVI D-19 Vacc 30 MCG/0.3ML Intramuscular Suspension Shaikh Donna Work Phone: [facility] Comment on above: Result Comment: 2022: [id number] 06-25-2020 Pfizer-BioNTech COVI D-19 Vacc 30 MCG/0.3ML Intramuscular Suspension Shaikh Donna Work Phone: [facility] Comment on above: Reason for Medicatio n: Prophylaxis 06-04-2020 Pfizer-BioNTech COVI D-19 Vacc 30 MCG/0.3ML Intramuscular Suspension Shaikh Donna Work Phone: [facility] Comment on above: Reason for Medicatio n: Prophylaxis Payers Date Payer Category Payer Unknown [id number] 2023 Self-pay [id number] 2022 Medicaid [id number] 1962 Unknown [id number] 2.16.8 40.1.911362.3.579.2.1068 1962 Unknown [id number] 2.16.8 40.1.899372.3.579.2.1068 1962 Unknown [id number] 2.16. 840.1.048346.3.579.2.356 1962 Unknown [id number] 2.16. 840.1.356960.3.579.2.356 1962 Unknown [id number] 2.16. 840.1.421761.3.579.2.356 1962 Unknown [id number] 2.16. 840.1.325157.3.579.2.356 1962 Unknown [id number] 2.16. 840.1.695624.3.579.2.356 1962 Unknown [id number] 2.16. 840.1.457540.3.579.2. 1962 Unknown [id number] 2.16. 840.1.024166.3.579.2.356 1962 Unknown [id number] 2.16. 840.1.536538.3.579.2.356 1962 Unknown [id number] 2.16. 840.1.641552.3.579.2.356 1962 Unknown [id number] 2.16. 840.1.369918.3.579.2.356 1962 Unknown [id number] 2.16. 840.1.237299.3.579.2.356 1962 Unknown [id number] 2.16.84 0.1.949040.3.579.2.593 1962 Unknown [id number] 2.16.84 0.1.947634.3.579.2.593 1962 Unknown [id number] 2.16.84 0.1.196072.3.579.2.593 1962 Unknown [id number] 2.16.84 0.1.377200.3.579.2.593 1962 Unknown [id number] 2.16.84 0.1.271624.3.579.2.593 1962 Unknown [id number] 2.16.84 0.1.089711.3.579.2.593 1962 Unknown [id number] 2.16.84 0.1.195344.3.579.2.593 1962 Unknown [id number] 2.16.84 0.1.963257.3.579.2.593 1962 Unknown [id number] 2.16.84 0.1.334563.3.579.2.1259 1962 Unknown [id number] 2.16.84 0.1.146480.3.579.2.1259 1962 Unknown [id number] 2.16.84 0.1.148105.3.579.2.1259 1962 Unknown [id number] 2.16.84 0.1.247787.3.579.2.1259 1962 Unknown [id number] 2.16.84 0.1.569984.3.579.2.1259 1962 Unknown [id number] 2.16.84 0.1.442741.3.579.2.1259 1962 Unknown [id number] 2.16.840 .1.698544.3.579.2.1259 1962 Unknown [id number] 2.16.8 40.1.632183.3.579.2.727 1962 Unknown [id number] 2.16.8 40.1.441650.3.579.2.727 1962 Unknown [id number] 2.16.8 40.1.042238.3.579.2.727 1962 Unknown [id number] 2.16.8 40.1.778953.3.579.2.727 1962 Unknown [id number] 2.16.8 40.1.731324.3.579.2.727 1962 Unknown [id number] 2.16.8 40.1.647142.3.579.2.727 1962 Unknown [id number] 2.16.8 40.1.587473.3.579.2.727 1962 Unknown [id number] 2.16.8 40.1.992618.3.579.2.727 1962 Unknown [id number] 2.16.8 40.1.849386.3.579.2.727 1962 Unknown [id number] 2.16.8 40.1.027246.3.579.2.1244 1959 Medicaid [id number] 30 [id number] Unknown O [id number] Unknown Unknown [id number] 2.16.8 40.1.756778.3.579.2.531 Unknown [id number] 2.16.8 40.1.145669.3.579.2.531 Social History Date Type Detail Facility Start: 12-08-2020 Tobacco smoking stat [facility] Unknown if ever smoked [facility] Work Phone: Start: 1960 Sex Assigned At Not on file M [facility] Work Phone: Start: 08-16-2021 End: 08-09-2022 Tobacco smoking status SDIS Ex-smoker (finding) [facility] Start: 08-09-2022 End: 10-09-2022 History of tobacco use [facility] Start: 1960 Sex Assigned At Female F [facility] Start: 08-09-2022 End: 10-09-2022 Daily caffeine consumption Daily caffeine consumption -[facility] 250 DO Work Phone: Comment on above: 1 CUP OF COFFEE; 2 CIGS DAILY; quit 2021; Start: 04-11-2022 End: 11-29-2023 Tobacco smoking status Heavy tobacco smoker (finding) [facility] Tobacco smoking status Never [facility] Start: 02-12-2023 End: 08-18-2017 History of tobacco use Current smoker [facility] End: 08-18-2017 History of tobacco use Cigarette Smoker [facility] Start: 08-09-2022 Tobacco use and exposure Smokeless tobacco non-user [facility] Start: 08-09-2022 Alcohol intake Current drinke r of alcohol (finding) [facility] Start: 10-09-2022 Alcohol intake Ex-drinker (finding) [facility] Start: 02-10-2023 Tobacco smoking status Light t obacco smoker (finding) [facility] Goals Date Patient Goal Desired Activity /State Functional Status Date Assessment Result Facility 11-29-2023 Functional Status N/A [facility] 02-14-2023 Functional status Patient at Baseline [facility] Work Phone: 02-10-2023 Functional Status N/A [facility] 10-15-2022 Functional Status N/A [facility] 06-14-2022 Functional Status N/A [facility] 06-06-2022 Functional Status N/A [facility] 05-23-2022 Functional Status N/A [facility] 04-11-2022 Functional Status N/A [facility] 08-17-2021 Functional status Patient at Baseline [facility] Work Phone: Mental Status Date Assessment Result Facility 02-14-2023 Cognitive function Cognitive Sta tus Patient at Baseline [facility] Work Phone: 08-17-2021 Cognitive function Cognitive Sta tus Patient at Baseline [facility] Work Phone: Clinical Notes 01-18-2010 to 11-29-2023 Note Date & Type Note Facility 11-29-2023 Hospital Discharg e instructions Patient Education 11/29/2023 13:57:34 Chest Wall Pain Chest Wall Pain Chest wall pain is pain in or around the bones and muscles of your chest. Sometimes, an injury causes this pain. Excessive coughing or overuse of arm and chest muscles may also cause chest wall pain. Sometimes, the cause may not be known. This pain may take several weeks or longer to get better. Follow these instructions at home: Managing pain, stiffness, and swelling If directed, put ice on the painful area: ?Put ice in a plastic bag. ?Place a towel between your skin and the bag. ?Leave the ice on for 20 minutes, 2 3 times per day. Activity Rest as told by your health care provider. Avoid activities that cause pain. These include any activities that use your chest muscles or your abdominal and side muscles to lift heavy items. Ask your health care provider what activities are safe for you. General instructions Take chde-mnz-ddrjqje and prescription medicines only as told by your health care provider. Do not use any products that contain nicotine or tobacco, such as cigarettes, e-cigarettes, and chewing tobacco. These can delay healing after injury. If you need help quitting, ask your health care provider. Keep all follow-up visits as told by your health care provider. This is important. Contact a health care provider if: You have a fever. Your chest pain becomes worse. You have new symptoms. Get help right away if: You have nausea or vomiting. You feel sweaty or light-headed. You have a cough with mucus from your lungs (sputum) or you cough up blood. You develop shortness of breath. These symptoms may represent a serious problem that is an emergency. Do not wait to see if the symptoms will go away. Get medical help right away. Call your local emergency services (911 in the [place] Do not drive yourself to the hospital. Summary Chest wall pain is pain in or around the bones and muscles of your chest. Depending on the cause, it may be treated with ice, rest, medicines, and avoiding activities that cause pain. Contact a health care provider if you have a fever, worsening chest pain, or new symptoms. Get help right away if you feel light-headed or you develop shortness of breath. These symptoms may be an emergency. This information is not intended to replace advice given to you by your health care provider. Make sure you discuss any questions you have with your health care provider. Document Revised: 01/28/2023 Document Reviewed: 01/28/2023 [employer] Patient Education 2023 [employer]. 11/29/2023 13:57:34 Head Injury, Adult Head Injury, Adult There are many types of head injuries. Head injuries can be as minor as a small bump, or they can be a serious medical issue. More severe head injuries include: A jarring injury to the brain (concussion). A bruise (contusion) of the brain. This means there is bleeding in the brain that can cause swelling. A cracked skull (skull fracture). Bleeding in the brain that collects, clots, and forms a bump (hematoma). After a head injury, most problems occur within the first 24 hours, but side effects may occur up to 7 10 days after the injury. It is important to watch your condition for any changes. You may need to be observed in the emergency department or urgent care, or you may have to stay in the hospital. What are the causes? There are many causes of a head injury. Serious head injuries may be caused by car crashes, bicycle or motorcycle crashes, sports injuries, falls, or being struck by an object. What are the symptoms? Symptoms of a head injury include a contusion, bump, or bleeding at the site of the injury. Other physical symptoms may include: Headache. Nausea or vomiting. Dizziness. Blurred or double vision. Sensitivity to bright lights or loud noises. Feeling tired. Trouble waking up. Severe symptoms such as: ?Weakness or numbness on one side of the body. ?Slurred speech or swallowing problems. ?Loss of consciousness. ?Seizures. Mental symptoms may include: Irritability. Confusion and memory problems. Poor attention and concentration. Changes in eating or sleeping habits. Anxiety or depression. How is this diagnosed? This condition is diagnosed based on your symptoms and a physical exam. You may also have imaging tests done, such as a CT scan or an MRI. How is this treated? Treatment for this condition depends on the severity and type of injury you have. The main goal of treatment is to prevent complications and allow the brain time to heal. Mild head injury If you have a mild head injury, you may be sent home, and treatment may include: Observation. A responsible adult should stay with you for 24 hours after your injury and check on you often. Physical rest. Brain rest. Pain medicines. Severe head injury If you have a severe head injury, treatment may include: Close observation. You may have to stay in the hospital and have: ?Frequent physical exams. ?Frequent checks of how your brain and nervous system are working. ?Your blood pressure and oxygen levels checked. Medicines to relieve pain, prevent seizures, and decrease brain swelling. Airway protection and breathing support. This may include using a ventilator. Monitoring and managing swelling inside the brain. Brain surgery. Surgery may include: ?Removing a collection of blood or blood clots. ?Stopping the bleeding. ?Removing a part of the skull to make room for the brain to swell. Follow these instructions at home: Activity Rest. Avoid activities that are hard or tiring. Make sure you get enough sleep. Let your brain rest by limiting activities that take a lot of thought or attention, such as: ?Watching TV. ?Playing memory games and doing puzzles. ?Job-related work or homework. ?Working on the computer, using social media, and texting. Avoid activities that could cause another head injury, such as playing sports, until your health care provider approves. Ask your provider when it is safe for you to return to your regular activities, such as work or school. Ask your provider when you can drive, ride a bicycle, or use machinery. Your ability to react may be slower after a brain injury. Do not do these activities if you are dizzy. Lifestyle Do not drink alcohol until your provider approves. Do not use drugs. Alcohol and certain drugs may slow your recovery and can put you at risk of further injury. If it is hard to remember things, write them down. If you are easily distracted, try to do one thing at a time. Talk with family members or close friends when making important decisions. Tell your friends, family, a trusted colleague, and ip network architect about your injury, symptoms, and restrictions. Ask them to watch for any problems that are new or get worse. General instructions Take hxfw-zeu-vtyutxz and prescription medicines only as told by your provider. Have a responsible adult stay with you for 24 hours after your head injury. They should watch you for any changes in your symptoms and be ready to get help right away. Keep all follow-up visits to make sure your needs are being met and catch any new problems early. How is this prevented? Avoiding another brain injury is very important. In rare cases, another injury can lead to permanent brain damage, brain swelling, or . The risk of this is greatest during the first 7 10 days after a head injury. To avoid injuries: Improve your balance and strength to avoid falls. Wear a seat belt when you are in a moving vehicle. Wear a helmet when riding a bicycle, skiing, or doing any other sport that has a risk of injury. Take safety measures in your home to prevent falls, such as: ?Removing clutter and tripping hazards. ?Using grab bars in bathrooms and handrails by stairs. ?Placing non-slip mats on floors and in bathtubs. ?Improving lighting in dim areas. Where to find more information Brain Injury Association: biausa.org Contact a health care provider if: You have headaches that do not go away. You have dizziness that does not go away. You have double vision or vision changes that do not go away. You have difficulty sleeping. You have changes in your mood. You have new symptoms. Get help right away if: You have sudden: ?Severe headache. ?Severe vomiting. ?Unequal pupil size. One is bigger than the other. ?Vision problems. ?Confusion or irritability. You have a seizure. Your symptoms get worse. You have clear or bloody fluid coming from your nose or ears. These symptoms may be an emergency. Get help right away. Call 911. Do not wait to see if the symptoms will go away. Do not drive yourself to the hospital. This information is not intended to replace advice given to you by your health care provider. Make sure you discuss any questions you have with your health care provider. Document Revised: 11/22/2022 Document Reviewed: 11/22/2022 [employer] Patient Education 2023 [employer] 11/29/2023 13:57:34 Muscle Strain Muscle Strain A muscle strain is an injury that occurs when a muscle is stretched beyond its normal length. Usually, a small number of muscle fibers are torn when this happens. There are three types of muscle strains. First-degree strains have the least amount of muscle fiber tearing and the least amount of pain. Second-degree and third-degree strains have more tearing and pain. Usually, recovery from muscle strain takes 1 2 weeks. Complete healing normally takes 5 6 weeks. What are the causes? This condition is caused when a sudden, violent force is placed on a muscle and stretches it too far. This may occur with a fall, while lifting, or during sports. What increases the risk? This condition is more likely to develop in athletes and people who are physically active. What are the signs or symptoms? Symptoms of this condition include: Pain. Tenderness. Bruising. Swelling. Trouble using the muscle. How is this diagnosed? This condition is diagnosed based on a physical exam and your medical history. Tests may also be done, including an X-ray, ultrasound, or MRI. How is this treated? This condition is initially treated with JORGE therapy. This therapy involves: Protecting the muscle from being injured again. Resting the injured muscle. Icing the injured muscle. Applying pressure (compression) to the injured muscle. This may be done with a splint or elastic bandage. Raising (elevating) the injured muscle. Your health care provider may also recommend medicine for pain. Follow these instructions at home: If you have a removable splint: Wear the splint as told by your health care provider. Remove it only as told by your health care provider. Check the skin around the splint every day. Tell your health care provider about any concerns. Loosen the splint if your fingers or toes tingle, become numb, or turn cold and blue. Keep the splint clean. If the splint is not waterproof: ?Do not let it get wet. ?Cover it with a watertight covering when you take a bath or a shower. Managing pain, stiffness, and swelling If directed, put ice on the injured area. To do this: ?If you have a removable splint, remove it as told by your health care provider. ?Put ice in a plastic bag. ?Place a towel between your skin and the bag. ?Leave the ice on for 20 minutes, 2 3 times a day. ?Remove the ice if your skin turns bright red. This is very important. If you cannot feel pain, heat, or cold, you have a greater risk of damage to the area. Move your fingers or toes often to reduce stiffness and swelling. Raise (elevate) the injured area above the level of your heart while you are sitting or lying down. Wear an elastic bandage as told by your health care provider. Make sure that it is not too tight. General instructions Take eppy-jlb-tymgxey and prescription medicines only as told by your health care provider. Treatment may include muscle relaxants or medicines for pain and inflammation that are taken by mouth or applied to the skin. Restrict your activity and rest the injured muscle as told by your health care provider. Gentle movements may be allowed. If physical therapy was prescribed, do exercises as told by your health care provider. Do not put pressure on any part of the splint until it is fully hardened. This may take several hours. Do not use any products that contain nicotine or tobacco. These products include cigarettes, chewing tobacco, and vaping devices, such as e-cigarettes. If you need help quitting, ask your health care provider. Ask your health care provider when it is safe to drive if you have a splint. Keep all follow-up visits. This is important. How is this prevented? Warm up before exercising. This helps to prevent future muscle strains. Contact a health care provider if: You have more pain or swelling in the injured area. Get help right away if: You have numbness or tingling in the injured area. You lose a lot of strength in the injured area. Summary A muscle strain is an injury that occurs when a muscle is stretched beyond its normal length. This condition is caused when a sudden, violent force is placed on a muscle and stretches it too far. This condition is initially treated with JORGE therapy, which involves protecting, resting, icing, compressing, and elevating. Gentle movements may be allowed. If physical therapy was prescribed, do exercises as told by your health care provider. This information is not intended to replace advice given to you by your health care provider. Make sure you discuss any questions you have with your health care provider. Document Revised: 04/24/2021 Document Reviewed: 04/24/2021 [employer] Patient Education 2023 [employer]. 11/29/2023 13:57:34 Motor Vehicle Collision Injury, Adult Motor Vehicle Collision Injury, Adult After a motor vehicle collision, it is common to have injuries to the head, face, arms, and body. These injuries may include cuts, clemens, and bruises. The collision can also cause sore muscles, muscle strains, headaches, and broken bones. You may have stiffness and soreness for the first several hours. You may feel worse after waking up the first morning after the collision. These injuries tend to feel worse for the first 24 48 hours. Your injuries should then begin to improve with each day. How quickly you improve often depends on: The severity of the collision. The number of injuries you have. The location and nature of the injuries. Whether you were wearing a seat belt and whether your airbag deployed. A head injury may result in a concussion, which is a brain injury that can have serious effects. If you have a concussion, you should rest as told by your health care provider. You must be very careful to avoid having a second concussion. Follow these instructions at home: Medicines Take tunk-ydu-fjwvkhd and prescription medicines only as told by your health care provider. If you were prescribed antibiotics, take or apply it as told by your health care provider. Do not stop using the antibiotic even if you start to feel better. Wound or burn care Follow instructions from your health care provider about how to take care of your wound or burn. Make sure you: Clean your wound or burn. To do this: ?Wash it with mild soap and water. ?Rinse it with water to remove all soap. ?Pat it dry with a clean towel. Do not rub it. ?Put an ointment or cream on the wound, if you were told to do so. Know when and how to change or remove your bandage (dressing). Always wash your hands with soap and water for at least 20 seconds before and after you change your dressing. If soap and water are not available, use hand fusion operator. Leave any stitches (sutures), skin glue, or adhesive strips in place. These skin closures may need to stay in place for 2 weeks or longer. If adhesive strip edges start to loosen and curl up, you may trim the loose edges. Do not remove adhesive strips completely unless your health care provider tells you to do that. Avoid exposing your burn or wound to the sun. Keep the surface of the wound or burn intact. ?Do not scratch or pick at the wound or burn. ?Do not break any blisters you may have. ?Do not peel any skin. Check your wound or burn every day for signs of infection. Check for: ?Redness, swelling, or pain. ?Fluid or blood. ?Warmth. ?Pus or a bad smell. Managing pain, stiffness, and swelling If directed, put ice on the injured areas. This can help with pain and swelling. To do this: ?Put ice in a plastic bag. ?Place a towel between your skin and the bag. ?Leave the ice on for 20 minutes, 2 3 times a day. ?If your skin turns bright red, remove the ice right away to prevent skin damage. The risk of skin damage is higher if you cannot feel pain, heat, or cold. ?Raise (elevate) the wound or burn above the level of your heart while you are sitting or lying down. This will help reduce pain, pressure, and swelling. ?If you have a wound or burn on your face, you may want to sleep with your head elevated. You may do this by putting an extra pillow under your head. Activity Rest. Rest helps your body to heal. Make sure you: ?Get plenty of sleep at night. Avoid staying up late. ?Keep the same bedtime hours on weekends and weekdays. You may have to avoid lifting. Ask your health care provider how much you can safely lift. Lifting can make neck or back pain worse. Ask your health care provider when you can drive, ride a bicycle, or use machinery. Your ability to react may be slower if you injured your head. Do not do these activities if you are dizzy. General instructions If you have a splint, brace, or sling, follow your health care provider's instructions on how to use your device. Drink enough fluid to keep your urine pale yellow. Do not drink alcohol. Eat a healthy diet. Ask your health care provider what foods you should eat. Contact a health care provider if: You have any new or worsening symptoms, such as: ?A worsening headache ?Pain or swelling in an arm or leg. ?Numbness, tingling, or weakness in your arms or legs. ?Trouble moving an arm or leg. ?New neck or back pain. ?Nausea or vomiting You have signs of infection in a wound or burn. You have a fever. You have a head injury and any of the following symptoms for more than 2 weeks after your motor vehicle collision: ?Headaches that do not go away. ?Dizziness or balance problems. ?Nausea or vomiting. ?Increased sensitivity to noise or light. ?Depression, anxiety, or irritability and mood swings. ?Memory problems or trouble concentrating. ?Sleep problems or feeling more tired than usual. You have changes in bowel or bladder control. You have blood in your urine, stool, or you vomit. Get help right away if: You have increasing pain in the chest, neck, back, or abdomen. You have shortness of breath. These symptoms may be an emergency. Get help right away. Call 911. Do not wait to see if the symptoms will go away. Do not drive yourself to the hospital. This information is not intended to replace advice given to you by your health care provider. Make sure you discuss any questions you have with your health care provider. Document Revised: 07/30/2022 Document Reviewed: 07/30/2022 [employer] Patient Education 2023 [employer] Follow Up Care 11/29/2023 11:48:21 With:Juany Cochran Address: [address] [place], [place] [address]dict Mary, Shania , [facility] [address] [place] [address] [facility] (1) When:12/02/2023 13:49:11 Comments:Continue take ibuprofen jumb-rvj-xdhvccc 600 mg every 6-8 hours for the pain and start taking cyclobenzaprine as prescribed. Return to the emergency room if your symptoms get worse or any new symptoms. [facility] 11-29-2023 Evaluation + Plan note Extrac elliot from: Title:ED Note Author:Gabby De Oliveira M.D. te:11/29/23 1. Headache (R51.9: Headache , unspecified) 2. Closed head injury (S09.90XA: Unspecified injury of head, initial encounter) 3. Muscle strain (T14.8XXA: Other injury of unspecified body region, initial encounter) 4. Chest wall pain (R07.89: Other chest pain) Orders: cyclobenzaprine, 10 mg = 1 tab(s), Oral, TID, PRN for spasm, # 20 tab(s), Refills(s) 0, Pharmacy: [facility]/pharmacy #[id number], 163, cm, 11/29/23 12:02:00 EDT, Height/Length Dosing, 70.4, kg, 11/29/23 12:02:00 EDT, Weight Dosing ketorolac, 30 mg = 1 mL, Injection, IV Push, Once, Stop date 11/29/23 13:27:00 EDT, STAT, Start date 11/29/23 13:27:00 EDT, 11/29/23 13:27:00 EDT Basic Metabolic Panel CBC w/ Auto Diff CT Head or Brain w/o Contrast CT Spine Cervical w/o Contrast ECG 12 Lead Adult ED Cardiac Monitoring eGFR Extra Blue Tube Extra SST Tube Pulse Oximetry Continuous Saline Lock Insert Troponin XR Ribs Unilat 3 Views Left w/ PA Chest Future Appointments Appointment Date:01/01/2024 02:30:00 PM Scheduled Provider:Dereck GROVES MD Location:[facility] Appointment Type:URO Office Visit [facility] 10-11-2024 NoteED Patient Education Note Neurology Head Injury, Adult There are many types of head injuries. Head injuries can be as minor as a small bump, or they can be a serious medical issue. More severe head injuries include: ? A jarring injury to the brain (concussion). ? A bruise (contusion) of the brain. This means there is bleeding in the brain that can cause swelling. ? A cracked skull (skull fracture). ? Bleeding in the brain that collects, clots, and forms a bump (hematoma). After a head injury, most problems occur within the first 24 hours, but side effects may occur up to 7?10 days after the injury. It is important to watch your condition for any changes. You may need to be observed in the emergency department or urgent care, or you may have to stay in the hospital. What are the causes? There are many causes of a head injury. Serious head injuries may be caused by car crashes, bicycleor motorcycle crashes, sports injuries, falls, or being struck by an object. What are the symptoms? Symptoms of a head injury include a contusion, bump, or bleeding at the site of the injury. Other physical symptoms may include: ? Headache. ? Nausea or vomiting. ? Dizziness. ? Blurred or double vision. ? Sensitivity to bright lights or loud noises. ? Feeling tired. ? Trouble waking up. ? Severe symptoms such as: ? Weakness or numbness on one side of the body. ? Slurred speech or swallowing problems. ? Loss of consciousness. ? Seizures. Mental symptoms may include: ? Irritability. ? Confusion and memory problems. ? Poor attention and concentration. ? Changes in eating or sleeping habits. ? Anxiety or depression. How is this diagnosed? This condition is diagnosed based on your symptoms and a physical exam. You may also have imaging tests done, such as a CT scan or an MRI. How is this treated? Treatment for this condition depends on the severity and type of injury you have. The main goal of treatment is to prevent complications and allow the brain time to heal. Mild head injury If you have a mild head injury, you may be sent home, and treatment may include: ? Observation. A responsible adult should stay with you for 24 hours after your injury and check onyou often. ? Physical rest. ? Brain rest. ? Pain medicines. Severe head injury If you have a severe head injury, treatment may include: ? Close observation. You may have to stay in the hospital and have: ? Frequent physical exams. ? Frequent checks of how your brain and nervous system are working. ? Your blood pressure and oxygen levels checked. ? Medicines to relieve pain, prevent seizures, and decrease brain swelling. ? Airway protection and breathing support. This may include using a ventilator. ? Monitoring and managing swelling inside the brain. ? Brain surgery. Surgery may include: ? Removing a collection of blood or blood clots. ? Stopping the bleeding. ? Removing a part of the skull to make room for the brain to swell. Follow these instructions at home: Activity ? Rest. Avoid activities that are hard or tiring. ? Make sure you get enough sleep. ? Let your brain rest by limiting activities that take a lot of thought or attention, such as: ? Watching TV. ? Playing memory games and doing puzzles. ? Job-related work or homework. ? Working on the computer, using social media, and texting. ? Avoid activities that could cause another head injury, such as playing sports, until your health care provider approves. ? Ask your provider when it is safe for you to return to your regular activities, such as work or school. ? Ask your provider when you can drive, ride a bicycle, or use machinery. Your ability to react maybe slower after a brain injury. Do not do these activities if you are dizzy. Lifestyle ? Do not drink alcohol until your provider approves. Do not use drugs. Alcohol and certain drugs may slow your recovery and can put you at risk of further injury. ? If it is hard to remember things, write them down. ? If you are easily distracted, try to do one thing at a time. ? Talk with family members or close friends when making important decisions. ? Tell your friends, family, a trusted colleague, and ip network architect about your injury, symptoms, andrestrictions. Ask them to watch for any problems that are new or get worse. General instructions ? Take mfaf-san-mqevopn and prescription medicines only as told by your provider. ? Have a responsible adult stay with you for 24 hours after your head injury. They should watch youfor any changes in your symptoms and be ready to get help right away. ? Keep all follow-up visits to make sure your needs are being met and catch any new problems early. How is this prevented? Avoiding another brain injury is very important. In rare cases, another injury can lead to permanent brain damage, brain swelling, or . The ri (more content not included)...[facility]12-28-2023 Discharge summary Author Jacques East [facility] February 14, 2023 12:53pm Note Date/Time February 14, 2023 12:53pm [facility] [address] [place] [address] Discharge Summary Signed Patient: Deysi Hernandez MR#: [id number] : 1960 Acct:[id number] Age/Sex: 62 / F Adm Date: 3 Loc: Room: [address] [place] [address]: Jacques East MD Copies to: [...] female with PMHx of CKD presented to [facility] with shortness of breath and was [...] % (Auto) 87.6, Lymph % (Auto) 7.6, Manati % (Auto) 4.7, Eos % (Auto) 0.0, Baso % (Auto) 0.1, Nucleat RBC Rel Count 0.0, Neut # (Auto) 11.1 H, Lymph #(Auto) 1.0, Manati # (Auto) 0.6, Eos # (Auto) 0.0, [...] signed by Jacques East MD> 02/14/[address] [facility] Work Phone: 1(311) 511-872712-28-2023 Progress note Author Jacques East [facility] February 14, 2023 12:45pm Note Date/Time February 14, 2023 7:29am [facility] [address] [place] [address] Hospitalist Progress Note Signed Patient: Deysi Hernandez MR#: [id number] : 1960 Acct:[id number] Age/Sex: 62 / F Adm Date: 3 Loc: Room: [address] [place] [address] Type: ADM IN Attending Dr: Jacques East [...] creatinine clearance -Trending downward from 80s at [place] to 70s here. repeat trop 43, flat [...] <Electronically signed by Jacques East MD> 02/14/[address] [facility] Work Phone: 1(145) 268-673812-27-2023 Progress note Author Jacques East [facility] February 13, 2023 10:47am Note Date/Time February 13, 2023 10:40am [facility] [address] [place] [address] Hospitalist Progress Note Signed Patient: Deysi Hernandez MR#: [id number] : 1960 Acct:[id number] Age/Sex: 62 / F Adm Date: 3 Loc: 3T Room: [address] [place] [address] Type: ADM IN Attending Dr: Jacques East [...] signed by Jacques East MD> 02/13/[address] [facility] Work Phone: 1(663) 256-705612-26-2023 History and physical note Author Jacques East [facility] February 12, 2023 11:26am Note Date/Time February 12, 2023 9:53am [facility] [address] [place] [address] Hospitalist H&P Signed Patient: Deysi Hernandez MR#: [id number] : 1960 Acct:[id number] Age/Sex: 62 / F Adm Date: 3 Loc: Room: [address] [place] [address] Type: ADM INOo Attending Dr: Jacuqes East MD Copies to: [place] Rivas DO, RES MD Shaikh Donna Piña MD~ HPI DATE OF EXAMINATION: 02/12/23 CHIEF COMPLAINT: Shortness of breath HISTORY OF PRESENT ILLNESS: Patient is a 62 year old female with PMHx of CKD presented to [facility] with shortness of breath and was [...] troponin 70.6 (down from 87 yesterday at [place]). Review of Systems Review of Systems All other systems reviewed & are negative unless noted below or in HPI Review of systems: 10 systems are reviewed and are negative except as mentioned elsewhere in the documentation [facility] Medical History CKD (chronic kidney [...] % (Auto) 4.0 % (.) 02/12/23 06:41 Manati % (Auto) 1.8 % (.) 02/12/23 06:41 Eos % (Auto) 0.0 % (.) 02/12/23 06:41 Baso % (Auto) 0.2 % (.) 02/12/23 06:41 Nucleat RBC Rel Count 0.1 /100 WBC (0-0.5) 02/12/23 06:41 Neut # (Auto) 14.1 x10E3/uL (1.8-7.7) H 02/12/23 06:41 Lymph # (Auto) 0.6 x10E3/uL (1.00-4.8) L 02/12/23 06:41 Manati # (Auto) 0.3 x10E3/uL (0.0-0.8) 02/12/23 06:41 [...] creatinine clearance -Trending downward from 80s at [place] to 70s here. Will trend it again. [...] <Electronically signed by Jacques East MD> 02/12/23 1125 [facility] Work Phone: 1(671) 872-312312-24-2023 Hospital Discharge instructions Patient Education 02/10/2023 17:12:09 Urinary Tract Infection, Adult, Oyta-qt-Ofuv Urinary Tract Infection, Adult A urinary tract [...] Follow these instructions at home: Medicines Take toly-srg-twfmtun and prescription medicines only as told by [...] provider. Document Revised: 09/16/2020 Document Reviewed: 09/16/2020 [employer] Patient Education 2022 [employer] 02/10/2023 17:12:09 Acute Bronchitis, Adult Acute Bronchitis, [...] condition. Follow these instructions at home: Take jqpn-ikx-hkwcftw and prescription medicines only as told by [...] and water are not available, use hand fusion operator. Avoid contact with people who have [...] it is easier to cough up. Take wsws-vkc-cisvunh and prescription medicines only as told by [...] provider. Document Revised: 05/17/2022 Document Reviewed: 06/07/2021 [employer] Patient Education 2022 [employer]. Follow Up Care 02/10/2023 14:38:40 With:SHAIKH DONNA Address: [address] [place] [id number] [phone] Business (1) When:02/13/2023 16:16:37 Comments:Follow-up with your primary care provider in 3 to 5 days. If symptoms worsen, do not improve, or new symptoms arise please report back to emergency department for further evaluation. [facility]12-24-2023 Evaluation + Plan note Diagnostic Tests Pending * Urine Culture 02/10/23 [facility]12-24-2023 Evaluation + Plan noteExtracted from: Title:ED Note [...] day(s), # 14 cap(s), Refills(s) 0, [id number], cm, 02/10/23 14:52:00 EST, Height/Length Dosing, 70, kg, 02/10/23 14:52:00 EST, Weight Dosing predniSONE, 60 mg = 3 tab(s), Oral, Daily, X 5 day(s), # 15 tab(s), Refills(s) 0, [id number], cm, 02/10/23 14:52:00 EST, [...] Ag PT & PTT Rapid COVID Antigen ([facility]) Saline Lock Insert Troponin 0 Hr. Troponin 3 Hr. XR Chest Single View [facility] [place]09-12-2023 Evaluation note* Diagnosis Stage 3 chronic kidney disease, unspecified whether stage 3a or 3b CKD (HCC) documented in this encounter [facility]09-11-2023 NoteHNO ID: [id number] Author: Debra Fishman MD Service: ? Author Type: Physician Type: Progress Notes Filed: 10/29/2022 9:00 PM Note Text: Patient contacted me regarding high blood pressure in 150-160 mmHg at home. We agreed to increase lisinopril back to 10 mg daily, updated prescription sent to pharmacy on file. Debra Fishman MD Staff, Department of Kidney Medicine 10/29/22 9:00 [facility]09-11-2023 History of Present illness Narrative * Debra Fishman MD - 10/29/2022 8:59 PM EDT Patient contacted me regarding high blood pressure in 150-160 mmHg at home. We agreed to increase lisinopril back to 10 mg daily, updated prescription sent to pharmacy on file. Debra Fishman MD Staff, Department of Kidney Medicine 10/29/22 9:00 PM [facility] Miscellaneous Notes* Telephone Encounter - Debra [...] question. I will also send her a [employer] message encouraging communicate via [employer] if needed. Debra Fishman MD Staff, Department of Kidney Medicine 10/26/22 5:49 PM documented in [facility]23 Miscellaneous Notes* Telephone Encounter - Linn Solis Ma - 10/25/2022 12:32 PM EDT Patient called the office very upset because today at here appointment with Kidney Medicine she wasseen by another provider and it wasn't her kidney doctor. She would like Dr. Fishman call her back at [phone] because she has lots of questions that the patient wants answers to and the patient is requesting that the provider calls her back after 5:30 pm due to the patient works that late Saturday thru Saturday documented in this encounterC[facility]08[facility]23 Hospital Discharge instructions Patient Education 10/15/2022 [...] provider. Document Revised: 02/06/2022 Document Reviewed: 02/06/2022 [employer] Patient Education 2022 [employer]. 10/15/2022 18:04:53 Steps to Quit Smoking Steps [...] require a prescription. You can also purchase lgvn-oqz-ywlayjz medicines. Medicines may have nicotine in them [...] and encouragement. Call telephone quitlines, such as 7-353-DWES-NOW, reach out to support groups, or work [...] provider. Document Revised: 01/26/2022 Document Reviewed: 01/26/2022 [employer] Patient Education 2022 [employer]. 10/15/2022 18:04:51 BMI for Adults BMI for [...] numbers. This can be done either in [place] ([place] or metric measurements. Note that charts and online BMI calculators are available to help you find your BMI quickly and easily without having to do these calculations yourself. To calculate your BMI in [place] ([place] measurements: 1.Measure your weight in pounds [...] Association: www.heart.org National Heart, Lung, and Blood [place]: www.nhlbi.nih.gov Summary Body mass index (BMI) is a number that is calculated from a person's weight and height. BMI may help estimate how much of a person's weight is composed of fat. BMI can help identify thosewho may be at higher risk for certain medical problems. BMI can be measured using Palauan measurements or metric measurements. BMI charts are used to identify whether you are underweight, normal weight, overweight, or obese. This information is not intended to replace advice given to you by your health care provider. Make sure you discuss any questions you have with your health care provider. Document Revised: 10/28/2019 Document Reviewed: 09/04/2019 [employer] Patient Education 2022 [employer]. 10/15/2022 18:04:48 Urinary Tract Infection, Adult Urinary [...] Treatment for this condition includes: Antibiotic medicine. Sayd-txh-peglqkf medicines to treat discomfort. Drinking enough water [...] Follow these instructions at home: Medicines Take uzmj-kow-umbucko and prescription medicines only as told by [...] provider. Document Revised: 09/16/2020 Document Reviewed: 09/16/2020 [employer] Patient Education 2022 [employer]. Follow Up Care 10/15/2022 17:17:22 With:SHAIKH THOMPSON Address:Unknown When: Unknown [facility] [id number] Evaluation + Plan note Diagnostic Tests Pending * Urine Culture 10/15/22 [facility] [place]08-23-2023 Evaluation note* Diagnosis Stage 3 chronic kidney disease, unspecified whether stage 3a or 3b CKD (HCC)- Primary Tobacco abuse Tobacco use disorder Hypertension, renal disease Unspecified hypertensive kidney disease with chronic kidney disease stage I through stage IV, or unspecified Mixed hyperlipidemia Atrophic kidney, acquired Renal sclerosis, unspecified documented in this encounter [facility]08-22-2023 NoteHNO ID: [id number] Author: Rosie Harris DO Service: ? Author Type: Physician Type: Progress Notes Filed: 10/09/2022 5:08 PM Note Text: [facility] NEPHROLOGY AND HYPERTENSION [facility] SERVICE DATE: 10/09/2022 [...] CKD, ESRD, hearing loss. She is a guide smoker, currently 0.75 pack per day but [...] note: I have interview (more content not included)...[facility] 10-09-2022 Instructions* Patient Instructions* Gurmeet Ojeda [...] to smoking cessation program documented in this encounterC[facility]08-[facility]23 History of Present illness Narrative* Rosie Harris DO - 10/09/2022 2:32 PM EDT [facility] NEPHROLOGY & HYPERTENSION [facility] SERVICE DATE: 10/09/2022 [...] CKD, ESRD, hearing loss. She is a guide smoker, currently 0.75 pack per day butsmoked [...] Rosie Harris DO documented in this encounterCleveland Clinic [facility]08-22-2023 NotePatient Outreach (ELPIDIO) DEYSI HERNANDEZ ([id number]) 1960 F Date Time Provider Department 10/09/22 ROSIE HARRIS During your visit today, we recorded the following information about you: Allergies As of Date: 10/09/2022 Noted Allergy Reaction CODEINE 09/07/2014 7 - Swelling Date Reviewed: 10/09/2022 Reviewed by: Rosie Harris DO - Fully Assessed Visit Diagnosis:Screening for genitourinary condition [Z13.89] Order(s):URINALYSIS, REFLEX MICROSCOPIC [YNW8755] Order #: [id number]. #:[id number] Prescriptions as of 10/12/2022 - lisinopril (ZESTRIL) [...] 10/09/2022 Encounter Status:Closed by DIANDRA ALBERTO on 10/12/22[facility] 08-23-2022 NoteHNO ID: [id number] Author: Carine Farris RDMS Service: ? Author [...] Carine Farris RDMS August 23, 2022 2:23 [id number] NoteHNO ID: [id number] Author: Debra Fishman MD Service: ? Author Type: Physician Type: Progress Notes Filed: 08/09/2022 7:02 PM Note Text: [facility] NEPHROLOGY AND HYPERTENSION [facility] SERVICE DATE: 08/09/2022 [...] CKD, ESRD, hearing loss. She is a guide smoker, currently 0.75 pack per day but [...] LEUKEST 75 Bonnie/uL* ASSE (more content not included)...[facility]06-22-2023 Instructions* Patient Instructions* Gurmeet Ojeda MD [...] at your earliest convenience documented in this encounterC[facility]06-[facility]23 History of Present illness Narrative* Debra Fishman MD - 08/09/2022 3:17 PM EDT [facility] NEPHROLOGY & HYPERTENSION [facility] SERVICE DATE: 08/09/2022 [...] CKD, ESRD, hearing loss. She is a guide smoker, currently 0.75 pack per day butsmoked [...] Staff, Department of Kidney Medicine Pager # [phone] August 09, 2022 6:58 PM documented in this encounterCleveland [facility]06-22-2023 NotePatient Outreach (KIDMMN) DEYSI HERNANDEZ ([id number]) 1960 F Date Time Provider Department 08/09/22 DEBRA FISHMAN During your visit today, we recorded the following information about you: Allergies As of Date: 08/09/2022 Noted Allergy Reaction CODEINE 09/07/2014 7 - Swelling Date Reviewed: 08/09/2022 Reviewed by: Paulo Holbrook MA - Fully Assessed Visit Diagnosis:Screening for genitourinary condition [Z13.89] Order(s):URINALYSIS, REFLEX MICROSCOPIC [[id number]] Order #: [id number]. #:[id number] Prescriptions as of 08/13/2022 - aspirin, enteric [...] for malignant neoplasm *03/27/2016 Encounter Status:Closed by DIANDRA ALBERTO on 08/13/22[facility] 06-06-2022 Hospital Discharge instructions Patient Education [...] your health care provider. General instructions Take dufq-suf-nzvynyr and prescription medicines only as told by [...] provider. Document Revised: 10/24/2020 Document Reviewed: 10/24/2020 [employer] Patient Education 2022 [employer]. [facility] [place] 04-05-2023 Hospital Discharge instructions Patient [...] 01/21/2013 Document Revised: 09/24/2018 Document Reviewed: 09/24/2018 [employer] Patient Education 2020 [employer]. [facility] [place] 02-22-2023 Hospital Discharge instructions Patient [...] 01/21/2013 Document Revised: 09/24/2018 Document Reviewed: 09/24/2018 [employer] Patient Education 2020 [employer]. Follow Up Care 02/28/2022 14:28:28 With:TRUDY ADRIAN PA-C, URL Address: [address] [place] [address] When: Unknown [facility] 01-30-2023 Evaluation note* Encounter Date Diagnosis Assessment [...] concerns Feb, Sore throat (ICD-10 - J02.9) [employer] Other 01-24-2023 Procedure [facility]07-06-2022 Evaluation note* Encounter Date Diagnosis Assessment [...] Patient verbalizes understanding. Aug, Other Pharmacist concha isit: Patient presented today for comprehensive medication [...] risk of hypotension. Patient also educated on [employer] as patient does not have prescription insurance. Advised patient on proper assessment of blood pressure at home. Time spent with patient: 10 minutes Seen by: Akil Collins, AndryD, BCACP [employer] Other 06-29-2022 Progress note Author Ricky Reynoso [facility] August 16, 2021 6:37pm Note Date/Time August 16, 2021 6:37 pm [facility] [address] [place] [address] Hospitalist Progress Note Signed Patient: Deysi Hernandez MR#: [id number] : 1960 Acct:[id number] Age/Sex: 61 / F Adm Date: 2 Loc: Room: [address] [place] [address] Type : ADM IN Attending Dr: Ricky [...] Benzocaine 1 applic 08/16/21 15:00 Benzocaine 20% [place] 57 Gm Can MUCOUS MEM ONCE PRN [...] culture have been pending, urine culture at [place] showed mixed zoe, since patient presented with [...] <Electronically signed by Ricky Reynoso DO> 08/16/211836 [facility] Work Phone: 1(411) 337-980406-29-2022 Progress note Author Rober Wyatt [facility] August 16, 2021 5:13pm Note Date/Time August 16, 2021 8:17 am [facility] [address] [place] [address] Neurology Progress Note Signed Patient: Deysi Hernandez MR#: [id number] : 1960 Acct:[id number] Age/Sex: 61 / F Adm Date: 2 Loc: 3T Room: [address] [place] [address] Type : ADM IN Attending Dr: Ricky Renyoso DO Copies to: ~ Date of Service: [...] 4 extremities and symmetric CEREBELLAR EXAM: * Euwvpg-dr-yesu and alternating movements are intact and normal in bilateral upper extremities * Wmge-iz-icxf and alternating movements are intact and normal [...] Patient presented to the emergency room at [facility] with abdominal pain and was noted to have acute kidney injury and evidence of pyelonephritis and elevated troponin with EKG changes. She was transferred to [facility] for further evaluation. She is [...] signed by Rober Wyatt DO> 08/16/[address] [facility] Work Phone: 1(923) 730-531506-29-2022 Progress note Author Marquez Beal [facility] August 16, 2021 10:47am Note Date/Time August 16, 2021 10:4 4am [facility] [address] [place], [place] [id number] Cardiology Progress Note Signed Patient: Deysi Hernandez MR#: [id number] : 1960 Acct:[id number] Age/Sex: 61 / F Adm Date: 2 Loc: Room: [address] [place] [address] Type : ADM IN Attending Dr: Ricky [...] % (Auto) 70.9 Lymph % (Auto) 18.6 [place] % (Auto) 9.4 Eos % (Auto) 0.4 Baso % (Auto) 0.7 Neut # (Auto) 7.7 Lymph # (Auto) 2.0 [place] # (Auto) 1.0 H Eos # (Auto) [...] signed by MD Marquez Beal> 08/16/[address] [facility] Work Phone: 1(156) 377-997506-28-2022 Consult note Author Rober Wyatt [facility] August 15, 2021 5:40pm Note Date/Time August 15, 2021 8:42 am [facility] [address] [place] [address] Neurology Consult Note Signed Patient: Deysi Hernandez MR#: [id number] : 1960 Acct:[id number] Age/Sex: 61 / F Adm Date: 2 Loc: Room: [address] [place] [address] Type : ADM IN Attending Dr: Alaina Arce MD Copies to: DO Janet Richter ANP-C Kanika Ahuja, MD NO FAMILY PHYSICIAN~ HPI Consult Date: 08/15/21 Roast Master: MAURICIO Rose with Dr Wyatt Reason for consult: Stroke Consult Narrative HPI: Patient is a 61-year-old female with unknown medical history. She was admitted to the hospital on 08/13/2021 after presenting to the emergency room with abdominal pain that been present for approximately 1 week associated with nauseaand vomiting. Patient presented to the emergency room in [place] and found to have significant hypertension and [...] nonacute. She was transferred to [facility] for further evaluation and management. [...] 4 extremities and symmetric CEREBELLAR EXAM: * Tiypsz-bc-dfcn and alternating movements are intact and normal in bilateral u pper extremities * Dkwp-fg-ufpc and alternating movements are intact and normal [...] Christopher Ceja M.D.08/14/2021 4:57 PM Dictation Location: [place] [address] Therapy Recommendations Therapy Recommendations: OT Recommendations OT [...] Patient presented to the emergency room at [facility] with abdominal pain and was noted to have acute kidney injury and evidence of pyelonephritis and elevated troponin with EKG changes. She was transferred to [facility] for further evaluation. She is [...] signed by Rober Wyatt DO> 08/15/[address] [facility] Work Phone: 1(180)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
[2023-12-14 12:04] LABS: Basophils Absolute Auto 0.1 10^3/uL (0.0-0.1); Basophils Percent Auto 1.4 % (0.2-2.0); Eosinophils Absolute Auto 0.3 10^3/uL (0.0-0.7); Eosinophils Percent Auto 3.2 % (0.9-7.0); Hematocrit 52.5 % (36.0-48.0); Hemoglobin 17.8 g/dL (12.0-16.0); Immature Granulocytes Abs Auto 0.02 10^3/uL (0.00-0.03); Immature Granulocytes Pct Auto 0.2 % (0.0-0.5); Lymphocytes Absolute Auto 1.9 10^3/uL (1.2-3.8); Lymphocytes Percent Auto 23.7 % (20.5-60.0); Mean Corpuscular HGB Conc 33.9 g/dL (29.9-35.2); Mean Corpuscular Hemoglobin 31.2 pg (26.7-34.0); Mean Corpuscular Volume 92.1 fL (81.0-99.0); Mean Platelet Volume 9.1 fL (9.5-13.5); Monocytes Absolute Auto 0.6 10^3/uL (0.3-0.8); Monocytes Percent Auto 7.9 % (1.7-12.0); Neutrophils Absolute Auto 5.1 10^3/uL (1.4-6.5); Neutrophils Percent Auto 63.6 % (43.0-75.0); Platelet Count 219 10^3/uL (150-450); Red Cell Distribution Width 12.7 % (11.0-15.0)
[2023-12-14 12:05] LABS: Bilirubin Urine NEGATIVE (NEGATIVE); Blood Urine TRACE-I (NEGATIVE); Clarity Urine CLEAR (CLEAR); Color Urine LT. YELLOW (YELLOW); Glucose Urine UA NEGATIVE (NEGATIVE); Ketones Urine NEGATIVE (NEGATIVE); Leukocyte Esterase Urine NEGATIVE (NEGATIVE); Nitrite Urine NEGATIVE (NEGATIVE); Protein Urine NEGATIVE (NEG/TRACE); Urobilinogen Urine 0.2 EU/dL (0.2-1.0)
[2023-12-14 12:13] LABS: Creatinine Urine Random 70.88 mg/dL (20.00-300.00); Microalbum Creatinine Ratio Ur 18.3 mg/g (0.0-29.9); Microalbumin Urine Random <1.3 mg/dL (<=30.0)
[2023-12-14 12:22] LABS: Bacteria Urine NONE SEEN #/HPF (NONE SEEN); Cast Seen? NONE SEEN #/LPF (NONE SEEN); Crystals Seen? None Seen #/HPF (None Seen); Mucus Urine NONE SEEN (NONE SEEN); RBC Urine 0-2 #/HPF (0-2); Squamous Epithelial Cell Urine FEW #/LPF (NONE/RARE); WBC Urine 0-2 #/HPF (NONE SEEN)
[2023-12-14 12:50] LABS: Anion Gap 17.4; BUN Creatinine Ratio 15.7; Calcium 9.7 mg/dL (8.5-10.1); Carbon Dioxide 23.3 mmol/L (21.0-32.0); Chloride 105 mmol/L (98-107); Estimated GFR (African America 49 (>=60 mL/min/1.73m^2); Estimated GFR (Non-African Ame 40 (>=60 mL/min/1.73m^2); Glucose 90 mg/dL (74-106); Phosphorus 3.9 mg/dL (2.6-4.7); Potassium 4.7 mmol/L (3.5-5.1); Sodium 141 mmol/L (136-145); Uric Acid 5.4 mg/dL (2.6-6.0)
[2023-12-16 15:10] LABS: PTH, Intact 48 pg/mL (15-65)
== END 2023-12-14 11:31 | disposition home or self-care (01) ==
LOC: LAB 11:32
DX: N18.32 Chronic kidney disease, stage 3b (principal)
CPT/HCPCS: 36415; 80048; 81001; 82043; 82306; 82570; 83735; 83970; 84100; 84550; 85025

== ENCOUNTER 2024-03-25 08:08 | Outpatient (OUT) | payer OTHER, SELFPAY ==
--- NOTE | 2024-03-25 08:10 | MM_ITS ---
Patient Name: SIXTO RICH MR#: [id number] : 1960 Exam Date: 03/25/2024 Ordering Doctor: DR. NEELIMA CASTRO D.O. RADIOLOGY REPORT PROCEDURE: MM TOMOSYNTHESIS SCREENING BI COMPARISON: MM TOMOSYNTHESIS SCREENING BI, 02/19/2023. MG MAMM SCREEN 3D NIRMALA CAD, 10/30/2021. MG MAMM NIRMALA SCRN W CAD DIG, 12/05/2012. MG MAMM NIRMALA SCRN W CAD DIG, 05/01/2011. INDICATIONS: Screening Calculator Name NCI Breast Cancer Risk Assessment Tool 5 Year Breast Cancer Risk 1.10% Lifetime Breast Cancer Risk 5.20% Personal Breast Cancer No Personal Ovarian Cancer No Treatments None Family Cancers None LOCATION: [facility] BREAST COMPOSITION: There are scattered areas of fibroglandular density. FINDINGS: DIAGNOSTIC CATEGORY 2--BENIGN FINDING: RIGHT BREAST: No significant suspicious finding. No significant change has occurred. LEFT BREAST: No significant suspicious finding. Scattered benign-appearing calcifications are present. No significant change has occurred. RECOMMENDATIONS: ROUTINE MAMMOGRAM AND CLINICAL EVALUATION IN 12 MONTHS. PLEASE NOTE: A NORMAL MAMMOGRAM DOES NOT EXCLUDE THE POSSIBILITY OF BREAST CANCER. A CLINICALLY SUSPICIOUS PALPABLE LUMP SHOULD BE BIOPSIED. Dictated by: Del Rod M.D. on 03/25/2024 at 14:43 Approved by: Del Rod M.D. on 03/25/2024 at 14:50
== END 2024-03-25 08:09 | disposition home or self-care (01) ==
LOC: MAMMO 08:08
DX: Z12.31 Encounter for screening mammogram for malignant neoplasm of breast (principal)
CPT/HCPCS: 77063; 77067

== ENCOUNTER 2024-04-06 07:17 | Day surgery (SDC) | payer OTHER, SELFPAY ==
--- OUTSIDE RECORDS SUMMARY | 2024-04-06 07:22 | XMS_ITS | CCD ---
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 concerns Unchanged Misc Prescription ([facility] ASPIRIN EC 81 MG TABLET) 0 Contact prescribing physician if questions or concerns Unchanged Misc Prescription (METOPROLOL SUCCINATE 50 MG TABLET, EXTENDED RELEASE 24 HR) 0 Contact prescribing physician if questions or concerns Allergies codeine (Swelling, Unknown, swelling and itching) Problems Ongoing - Any problem that you are currently receiving treatment for. Alkalosis Atrophy of kidney Cardiac enzyme or marker above reference range Chronic kidney disease stage 3B. Dysphagia Dysphagia Erythrocytosis Ex-smoker Gastroesophageal reflux disease without esophagitis History of endometrial ablation History of UTI Hyperlipidemia Hypertension Hypertensive renal disease Increased frequency of urination Left flank pain Mixed hyperlipidemia Orthostatic hypotension Renal cyst Screen for colon cancer Smoker Smoker Stage 3b chronic kidney disease Stress incontinence, female Tobacco user Historical - Any problem that you are no longer receiving treatment for. Embolic stroke Embolic stroke Essential hypertension None Patient Survey You may receive a survey via text or e-mail asking about your office visit. Please share your experience with us by completing your survey. We appreciate your feedback and thank you for choosing us for your care. Education Materials Cystoscopy Cystoscopy is a procedure that is used to help diagnose and sometimes treat conditions that affect the lower urinary tract. The lower urinary tract includes the bladder and the urethra. The urethra is the tube that drains urine from the bladder. Cystoscopy is done using a thin, tube-shaped instrument with a light and camera at the end (cystoscope). The cystoscope may be hard or flexible, depending on the goal of the procedure. The cystoscope is inserted through the urethra, into the bladder. Cystoscopy may be recommended if you have: ??? Urinary tract infections that keep coming back. ??? Blood in the urine (hematuria). ??? An inability to control when you urinate (urinary incontinence) or an overactive bladder. ??? Unusual cells found in a urine sample. ??? A blockage in the urethra, such as a urinary stone. ??? Painful urination. ??? An abnormality in the bladder found during an intravenous pyelogram (IVP) or CT scan. Cystoscopy may also be done to remove a sample of tissue to be examined under a microscope (biopsy). Tell a health care provider about: ??? Any allergies you have. ??? All medicines you are taking, including vitamins, herbs, eye drops, creams, and kdsk-mey-gvtuskh medicines. ??? Any problems you or family members have had with anesthetic medicines. ??? Any blood disorders you have. ??? Any surgeries you have had. ??? Any medical conditions you have. ??? Whether you are pregna (more content not included)... Normal [facility] Provider Letteron 01-01-2024 Provider Letter Provider Letter January 01, 2024 DEYSI HERNANDEZ [address] [place] [address] : 1960 To Whom It May Concern, Please excuse above patient from work. Date of Illness: From: 01/01/2024 To: 01/01/2024 May Return to Work On: 01/02/24 Restrictions: None Comments: Patient had an appointment with Dr. Groves on 01/01/24 Sincerely, [facility] Normal [facility] BMPon 11-29-2023 Anion gap [Moles/Vol] 11 mmol/L Normal 6-16 [facility] Comment on above: Performed By: #### 2 [id number] #### [facility] [address] [place] [address] Calcium [Mass/Vol] 9.6 mg/dL Normal 8.9-11.1 [facility] Comment on above: Performed By: #### 2 [id number] #### [facility] [address] [place] [address] Chloride [Moles/Vol] 106 mmol/L Normal 101-111 [facility] Comment on above: Performed By: #### 2 [id number] #### [facility] [address] [place] [address] CO2 [Moles/Vol] 26 mmol/L Normal 21-31 [facility] Comment on above: Performed By: #### 2 [id number] #### [facility] [address] [place] [address] Creatinine [Mass/Vol] 1.2 mg/dL Normal 0.5-1.3 [facility] Comment on above: Performed By: #### 2 [id number] #### [facility] [address] [place] [address] Glucose [Mass/Vol] 102 mg/dL Normal 55-199 [facility] Comment on above: Performed By: #### 2 [id number] #### [facility] [address] [place] [address] Potassium [Moles/Vol] 4.2 mmol/L Normal 3.5-5.3 [facility] Comment on above: Performed By: #### 2 [id number] #### [facility] [address] [place] [address] Sodium [Moles/Vol] 139 mmol/L Normal 135-145 [facility] Comment on above: Performed By: #### 2 [id number] #### [facility] [address] [place] [address] Urea nitrogen [Mass/Vol] 20 mg/dL Normal 5-21 [facility] Comment on above: Performed By: #### 2 [id number] #### [facility] [address] [place] [address] Urea nitrogen/Creatinine [Mass ratio] 17 No Units Normal 10-20 [facility] Comment on above: Performed By: #### 2 [id number] #### [facility] [address] [place] [address] CBC w/ Auto Diffon 4 Basophils/100 WBC (Bld) 0.7 % Normal 0.0-2.0 [facility] Comment on above: Performed By: #### 2 [id number] #### [facility] [address] [place] [address] Basophils/Leukocytes Auto (Bld) [Pure # fraction] 0.1 E9/L Normal 0.0-0.2 [facility] Comment on above: Performed By: #### 2 [id number] #### [facility] [address] [place] [address] Eosinophils (Bld) [#/Vol] 0.3 E9/L Normal 0.0-0.5 [facility] Comment on above: Performed By: #### 2 [id number] #### [facility] [address] [place] [address] Eosinophils/100 WBC (Bld) 3.4 % Normal 0.0-8.0 [facility] Comment on above: Performed By: #### 2 186476 #### [facility] [address] [place] [address] Erythrocyte distribution width (RBC) [Ratio] 14.0 % Normal 10.9-14.2 [facility] Comment on above: Performed By: #### 2 [id number] #### [facility] [address] [place] [address] Hematocrit (Bld) [Volume fraction] 46.2 % High 34.0-46.0 [facility] Comment on above: Performed By: #### 2 [id number] #### [facility] [address] [place] [address] Hemoglobin (Bld) [Mass/Vol] 16.2 g/dL High 12.0-16.0 [facility] Comment on above: Performed By: #### 2 [id number] #### [facility] [address] [place] [address] Lymphocytes (Bld) [#/Vol] 1.9 E9/L Normal 1.0-4.0 [facility] Comment on above: Performed By: #### 2 [id number] #### [facility] [address] [place] [address] Lymphocytes/100 WBC (Bld) 24.9 % Normal 14.0-50.0 [facility] Comment on above: Performed By: #### 2 [id number] #### [facility] [address] [place] [address] MCH (RBC) [Entitic mass] 31.5 pg Normal 27.0-34.0 [facility] Comment on above: Performed By: #### 2 [id number] #### [facility] [address] [place] [address] MCHC (RBC) [Mass/Vol] 35.1 g/dL Normal 31.4-36.0 [facility] Comment on above: Performed By: #### 2 [id number] #### [facility] [address] [place] [address] MCV (RBC) [Entitic vol] 89.9 fL Normal 80.0-100.0 [facility] Comment on above: Performed By: #### 2 [id number] #### [facility] [address] [place] [address] Monocytes (Bld) [#/Vol] 0.6 E9/L Normal 0.2-1.0 [facility] Comment on above: Performed By: #### 2 [id number] #### [facility] [address] [place] [address] Neutrophils (Bld) [#/Vol] 4.8 E9/L Normal 2.0-7.5 [facility] Comment on above: Performed By: #### 2 [id number] #### [facility] [address] [place] [address] Neutrophils/100 WBC (Bld) 62.5 % Normal 36.0-75.0 [facility] Comment on above: Performed By: #### 2 [id number] #### [facility] [address] [place] [address] Platelet mean volume (Bld) [Entitic vol] 7.9 fL Normal 6.4-10.8 [facility] Comment on above: Performed By: #### 2 [id number] #### [facility] [address] [place] [address] Platelets (Bld) [#/Vol] 209.0 E9/L Normal 150.0-500. 0 [facility] Comment on above: Performed By: #### 2 [id number] #### [facility] [address] [place] [address] RBC (Bld) [#/Vol] 5.2 E12/L Normal 4.3-5.9 [facility] Comment on above: Performed By: #### 2 [id number] #### [facility] [address] [place] [address] WBC corrected for nucl RBC Auto (Bld) [#/Vol] 7.6 E9/L Normal 4.0-11.0 [facility] Comment on above: Performed By: #### 2 [id number] #### [facility] [address] [place] [address] CHEMISTRYOrdered By: SYSTEM SYSTEM on 11-29-2023 Anion [...] Kavita Ton, September 2017) Urea nitrogen [Mass/Vol] 20 mg/dL [...] DO Transcribed by: RACHELLE Technologist: REBECA Peguero [facility] CT Spine Cervical w/o Contra ston 11-29-2023 [...] DO Transcribed by: RACHELLE Technologist: REBECA Peguero [facility] ED Clinical Summaryon 2023 ED Clinical Summary ED Clinical Summary [address] [address] ED Clinical Summary Person Information Name: DEYSI HERNANDEZ [place] Age: 63 Years : 1960 Sex: Female Language: Martiniquais PCP: Juany Cochran DO Marital Status: Visit [...] 11/29/2023 13:57:33 11/29/2023 13:57:33 ADDRESS: [address] [facility] [facility] [id number] PHYS DOC NOTES: MEDICAL INFORMATION: Prescriptions Given: New Medications [id number], [address], [place] [id number], [phone] cyclobenzaprine (cyclobenzaprine 10 mg Tab) 1 Tablets [...] Adult Follow up: With: Address: When: Juany Alonso [address], [place] [address], [address] [place] [address] Business (1) In 3 days 12/02/2023 Comments: Continue take ibuprofen ldmn-gsg-cmlivse 600 mg every 6-8 hours for the pain and start taking cyclobenzaprine as prescribed. Return to the emergency room if your symptoms get worse or any new symptoms. DIAGNOSIS: 1:Headache; 2:Closed head injury; 3:Muscle strain; 4:Chest wall pain Normal [facility] ED Note-Physicianon 11-29-19 ED Note-Physician ED Note-Physician [...] [] Head CT not ordered by emergency care management coordinator [] Head CT ordered for reasons other than trauma [x] Patient is 18 or older, presenting with minor blunt head trauma. Head CT (including cosigned orders) was ordered by an emergency care management coordinator for trauma because (select one or more):[SATISFIES MIPS PERFORMANCE]Reasons: [] Patient is 65 or older [] Patient GCS < 15 [] Patient has focal neurologic deficit [x] Patient has severe headache [] Patient is vomiting [] Severe/dangerousmechanism of injury was identified(select one or more): []MVA with: patient ejection, of another passenger, rollover, speed > 40mph, airbag deployment, fleet driver or passenger on ATV or motorcycle [] [...] cosigned orders) was ordered by an emergency care management coordinator for trauma, no indication specified.[DOES NOT SATISFY MIPS PERFORMANCE] Medical Decision Making MEDICAL DECISION MAKING Number and Complexity of Problems Differential Diagnosis: [] [facility] Data External documents reviewed: [] My EKG interpretation: [] My CT interpretation: [] My X-ray interpretation: [] My Ultrasound interpretation: [] Decision rules/scores evaluated: [] Discussed with: [] Treatment and Disposition ED Cou (more content not included)... Normal [facility] Comment on above: Result Comment: Elec tronically Signed By: Alvino Robles, Gabby H\.br\Date and Time Signed: 11/29/23 14:59 EDT ED Patient Summaryon 024 ED Patient Summary ED Patient Summary [address] [address] Patient Discharge Instructions Person Information Name: DEYSI HERNANDEZ Age: 63 Years [facility]: [id number] Arrival Date: 11/29/2023 11:46:45 Discharge Diagnosis: 1:Headache; 2:Closed head injury; 3:Muscle strain; 4:Chest wall pain Primary Care Physician: Juany Cochran DO Provider Information Primary Provider: Gabby De Oliveira M.D. Advanced Retail Delivery Driver:None The exam and treatment you received in the Emergency Department were for an urgent problem and are not intended as complete care. It is important that you follow up with a doctor, nurse practitioner, or physician?s human resources benefits assistant for ongoing care. If your symptoms become worse or you do not improve as expected and you are unable to reach your usual health care provider, you should return to the Emergency Department. We are available 24 hours a day. DEYSI HERNANDEZ has been given the following list of patient education materials, prescriptions and follow-up instructions: Follow-up Instructions: With: Address: When: Juany Cochran [address] [facility], [address] , [facility] [address] [place] [address] [facility] (1) In 3 days 12/02/2023 Comments: Continue take ibuprofen spby-mpb-lpbdsip 600 mg every 6-8 hours for the [...] opioids can be used to help relieve hdbflorq-ts-ryjybe pain and are often prescribed following a [...] following mo (more content not included)... Normal [facility] Extra Blueon 11-29-2023 Tube Collected Plasma Yes Invalid Interpretation Code [facility] Comment on above: Performed By: #### 1 [id number] #### [facility] [address] [place] [address] HEMATOLOGYOrdered By: SYSTEM SYSTEM on 11-29-2023 Basophils/100 [...] Troponin HS 4.80 pg/mL Low 10.10-27.1 0 [facility] Comment on above: Result Comment: The 95% CI (Confidence Interval) PPV (Positive Predictive Value) for myocardial infarction in females is 38 pg/mL, in males 51 pg/mL. The results should be used in conjunction with clinical conditions of myocardial infarction. (Access High Sensitivity Troponin I Instructions For Use, Kavita Cambridge, September 2017) Performed By: #### 2 [id number] #### [facility] [address] [place] [address] XR Ribs Unilat 3 Views Left w/ [...] mGy = . DAP = . Normal [facility] eGFRon 11-29-2023 eGFR 51 mL/min/1.73 m2 Low >=59 [facility] Comment on above: Performed By: #### 1 [id number] #### [facility] [address] [place] [address] ALL CBC WITH AUTO DIFFon BASOPHILS ABSOLUTE AUTO 0.1 [facility] Basophils/100 WBC (Bld) 1.5 % 0.2 - 2.0 % [facility] Eosin[facility]/100 WBC (Bld) 6.5 % 0.9 - 7.0 % [facility] Erythrocyte distribution width (RBC) [Ratio] 13.3 % 11.0 - 15.0 % [facility] Hematocrit (Bld) [Volume fraction] 46.8 % 36.0 - 48.0 % [facility] Hemoglobin (Bld) [Mass/Vol] 15.5 g/dL 12.0 - 16.0 g/dL [facility] IMMATURE GRANULOCYTES ABS AUTO 0.01 [facility] Immature granulocytes/100 WBC (Bld) 0.1 % 0.0 - 0.5 % [facility] Interpretation and review of laboratory results Abnormal [facility] LYMPHOCYTES ABSOLUTE AUTO 2.4 [facility] Lymphocytes/100 WBC (Bld) 26.4 % 20.5 - 60.0 % [facility] MCH (RBC) [Entitic mass] 30.6 pg 26.7 - 34.0 pg [facility] MCHC (RBC) [Mass/Vol] 33.1 g/dL 29.9 - 35.2 g/dL [facility] MCV (RBC) [Entitic vol] 92.5 fL 81.0 - 99.0 fL [facility] MONOCYTES ABSOLUTE AUTO 0.9 High [facility] Monocytes/100 WBC (Bld) 9.9 % 1.7 - 12.0 % [facility] NEUTROPHILS ABSOLUTE AUTO 5.0 [facility] Neutrophils/100 WBC (Bld) 55.6 % 43.0 - 75.0 % [facility] Platelet mean volume (Bld) [Entitic vol] 9.5 fL 9.5 - 13.5 fL [facility] EO # 0.6 [facility] PLT [address] [facility] RBC 5.06 [facility] WBC 9.1 [facility] Aspartate Amino Transferaseo n 03-12-2023 AST [Catalytic activity/Vol] 20 U/L Normal [facility] Comment on above: Order Comment: PT FA STED 121 HOURS Performed By: #### A ST, LIPID, BMP #### [facility] [address] [place] [id number] [place] Aspartate aminotransferase [ Enzymatic activity/volume] in Serum or PlasmaOrdered By: Marquez Beal on 03-12-2023 AST [Catalytic activity/Vol] 20 U/L [facility] Basic Metabolic Panelon 02-19 Anion gap [Moles/Vol] 8.4 mmol/L Normal 6.0-15.[address] [facility] Comment on above: Order Comment: PT FA STED 121 HOURS Performed By: #### A ST, LIPID, BMP #### [facility] [address] [place] [address] [place] Calcium [Mass/Vol] 9.8 mg/dL Normal 8.6-10.3 [facility] Comment on above: Order Comment: PT FA STED 121 HOURS Performed By: #### A ST, LIPID, BMP #### [facility] [address] [place] [address] [place] Chloride [Moles/Vol] 108 mmol/L High 98-107 [facility] Comment on above: Order Comment: PT FA STED 121 HOURS Performed By: #### A ST, LIPID, BMP #### [facility] [address] [place] [address] [place] CO2 [Moles/Vol] 30.0 mmol/L Normal 21.0-31.0 [facility] Comment on above: Order Comment: PT FA STED 121 HOURS Performed By: #### A ST, LIPID, BMP #### [facility] [address] [place] [id number] [place] Creatinine [Mass/Vol] 1.39 mg/dL High 0.60-1.[address] [facility] Comment on above: Order Comment: PT FA STED 121 HOURS Performed By: #### A ST, LIPID, BMP #### [facility] [address] [place] [address] [place] GFR/1.73 sq M.predicted MDRD (S/P/Bld) [Vol rate/Area] 43.442 mL/min/{1.73_m2} Normal [facility] Comment on above: Order Comment: PT FA STED 121 HOURS Performed By: #### A ST, LIPID, BMP #### [facility] [address] [place] [address] [place] Glucose [Mass/Vol] 93 mg/dL Normal 70-100 [facility] Comment on above: Order Comment: PT FA STED 121 HOURS Result Comment: [place] Glucose Reference Range is dependent on time and content of last meal. Glucose of more than 200 mg/dL in a nonstressed, ambulatory subject supports the diagnosis of Diabetes Mellitus. ADA recommended reference range Performed By: #### A ST, LIPID, BMP #### [facility] [address] [place] [address] [place] Potassium [Moles/Vol] 5.4 mmol/L High 3.5-5.[address] [facility] Comment on above: Order Comment: PT FA STED 121 HOURS Performed By: #### A ST, LIPID, BMP #### [facility] [address] [place] [id number] [place] Sodium [Moles/Vol] 141 mmol/L Normal 136-145 [facility] Comment on above: Order Comment: PT FA STED 121 HOURS Performed By: #### A ST, LIPID, BMP #### [facility] [address] [place] [id number] [place] Urea nitrogen [Mass/Vol] 18 mg/dL Normal 7-25 [facility] Comment on above: Order Comment: PT FA STED 121 HOURS Performed By: #### A ST, LIPID, BMP #### [facility] [address] [place] [address] [place] Calcium [Mass/volume] in Ser um or PlasmaOrdered By: Marquez Beal on 03-12-2023 Calcium [Mass/Vol] 9.8 mg/dL 8.6-10.3 [facility] Carbon dioxide, total [Moles /volume] in Serum or PlasmaOrdered By: Marquez Beal on 03-12-2023 CO2 [Moles/Vol] 30.0 mmol/L 21.0-31.0 [facility] Chloride [Moles/volume] in S oralia or PlasmaOrdered By: Marquez Beal on 03-12-2023 Chloride [Moles/Vol] 108 mmol/L 98-107 [facility] Cholesterol [Mass/volume] in Serum or PlasmaOrdered By: Marquez Beal on 03-12-2023 Cholesterol [Mass/Vol] 171 mg/dL 140-200 [facility] Comment on above: Chol less than 200 m g/dl low riskChol 201-239 mg/dl borderline riskChol 240 mg/dl and greater high risk Cholesterol in LDL Calc [Mas s/Vol]Ordered By: Marquez Beal on 03-12-2023 Cholesterol in LDL [Mass/Vol] 93 mg/dL 0-100 [facility] Comment on above: LDL ATP III CLASSIFI CATIONLDL less than 100 mg/dL OptimalLDL 100-129 mg/dL Near or above optimalLDL 130-159 mg/dL Borderline highLDL 160-189 mg/dL HighLDL greater than 189 mg/dL Very high Cholesterol in VLDL Calc [Ma ss/Vol]Ordered By: Marquez Beal on 03-12-2023 Cholesterol in VLDL [Mass/Vol] 33 mg/dL [facility] Creatinine [Mass/volume] in Serum or PlasmaOrdered By: Marquez Beal on 03-12-2023 Creatinine [Mass/Vol] 1.39 mg/dL 0.60-1.[address] [facility] Glucose [Mass/volume] in Ser um or PlasmaOrdered By: Marquez Beal on 03-12-2023 Glucose [Mass/Vol] 93 mg/dL 70-100 [facility] Comment on above: ADA recommended refe rence rangeRandom Glucose Reference Range is dependent on time and content of last meal. Glucose of more than 200 mg/dL in a nonstressed, ambulatory subject supports the diagnosis of Diabetes Mellitus. Lipid Panelon 03-12-2023 Cholesterol [Mass/Vol] 171 mg/dL Normal 140-200 [facility] Comment on above: Order Comment: PT FA STED 121 HOURS Result Comment: Chol less than 200 mg/dl low risk Chol 201-239 mg/dl borderline risk Chol 240 mg/dl and greater high risk Performed By: #### A ST, LIPID, BMP #### [facility] [address] [place] [address] [place] Cholesterol in HDL [Mass/Vol] 45 mg/dL Normal 23-92 [facility] Comment on above: Order Comment: PT FA STED 121 HOURS Result Comment: HDL CHOL ATP-III CLASSIFICATION Cardiovascular Risk HDL > or equal to 60 mg/dL LOW HDL < 40 mg/dL HIGH Performed By: #### A ST, LIPID, BMP #### [facility] [address] Cholesterol.total/Chol esterol in HDL [Mass ratio] 3.8 {ratio} Normal <5.0 [facility] Comment on above: Order Comment: PT FA STED 121 HOURS Result Comment: PERF ORMED BY: [place] [address] PATHOLOGIST [employer]AND AGENT JERAMY CALDWELL M.D. Performed By: #### A ST, LIPID, BMP #### [facility] [address] LDL Cholesterol,Calculated 93 mg/dL Normal 0-100 [facility] Comment on above: Order Comment: PT FA STED 121 HOURS Result Comment: LDL ATP III CLASSIFICATION LDL less than 100 mg/dL Optimal LDL 100-129 mg/dL Near or above optimal LDL 130-159 mg/dL Borderline high LDL 160-189 mg/dL High LDL greater than 189 mg/dL Very high Performed By: #### A ST, LIPID, BMP #### [facility] [address] [place] [id number] [place] Triglyceride w/Reflex 165 mg/dL High 0-[address] [facility] Comment [...] By: #### A ST, LIPID, BMP #### [facility] [address] [place] [address] [place] VLDL CHOLESTEROL 33 mg/dL Normal [facility] Comment on above: Order Comment: PT FA STED 121 HOURS Performed By: #### A ST, LIPID, BMP #### [facility] [address] [place] [id number] [facility] No Panel InformationOrdered By: Marquez Beal on 03-12-2023 Estimated GFR (CKD-EPI) 43.442 mL/Min [facility] Creatinine Clearance (Chem N/A [facility] Potassium [Moles/volume] in Serum or PlasmaOrdered By: Marquez Beal on 03-12-2023 Potassium [Moles/Vol] 5.4 mmol/L 3.5-5.[address] [facility] Serum or plasma anion gap de terminationOrdered By: Marquez Beal on 03-12-2023 Anion gap [Moles/Vol] 8.4 mmol/L 6.0-15.[address] [facility] Serum or plasma high density lipoprotein (HDL) cholesterol measurementOrdered By: Marquez Beal on 03-12-2023 Cholesterol in HDL [Mass/Vol] 45 mg/dL [facility] Comment on above: HDL CHOL ATP-III CLA SSIFICATION Cardiovascular RiskHDL > or equal to 60 mg/dL LOWHDL < 40 mg/dL HIGH Serum or plasma total choles terol/high density lipoprotein (HDL) cholesterol mass ratOrdered By: Marquez Beal on 03-12-2023 Cholesterol.total/Chol esterol in HDL [Mass ratio] 3.8 {ratio} <5.0 [facility] Sodium [Moles/volume] in Ser um or PlasmaOrdered By: Marquez Beal on 03-12-2023 Sodium [Moles/Vol] 141 mmol/L 136-145 [facility] Triglyceride [Mass/volume] i n Serum or PlasmaOrdered By: Marquez Beal on 03-12-2023 Triglyceride [Mass/Vol] 165 mg/dL 0-149 [facility] Comment on above: TRIG ATP III CLASSIF ICATIONTRIG less than 150 mg/dL NormalTRIG 150-199 mg/dL Borderline highTRIG 200-500 mg/dL High TRIG greater than 500 mg/dL Very highStandard traceable to the Center for Disease Conrtrol and Prevention (CDC) test method. Urea nitrogen [Mass/volume] in Serum or PlasmaOrdered By: Marquez Beal on 03-12-2023 Urea nitrogen [Mass/Vol] 18 mg/dL 09-11 [facility] Basic Metabolic Panelon 12-2 Anion gap [Moles/Vol] 12.2 mmol/L Normal 6.0-15.0 [facility] Comment on above: Performed By: #### C BC, BMP ####[place] [address] [place] [id number] [facility] Calcium [Mass/Vol] 9.4 mg/dL Normal 8.6-10.3 [facility] Comment on above: Performed By: #### C BC, BMP ####[address] [place] [address] [facility] Chloride [Moles/Vol] 103 mmol/L Normal 98-107 [facility] Comment on above: Performed By: #### C BC, BMP ####[address] [place] [address] [facility] CO2 [Moles/Vol] 26.2 mmol/L Normal 21.0-31.0 [facility] Comment on above: Performed By: #### C BC, BMP ####[address] [place] [address] [facility] Creatinine [Mass/Vol] 1.35 mg/dL High 0.60-1.[address] [facility] Comment on above: Performed By: #### C BC, BMP ####[address] [place] [address] [place] Creatinine Clr Calc Pharmacy 40.59 Normal [facility] Comment on above: Result Comment: PERF ORMED BY: [facility] [address] [id number] PATHOLOGIST [employer] JERAMY CALDWELL M.D. Performed By: #### C BC, BMP ####[place] [address] [place] [phone] [facility] GFR/1.73 sq M.predicted MDRD (S/P/Bld) [Vol rate/Area] 44.991 mL/min/{1.73_m2} Normal [facility] Comment on above: Performed By: #### C JUANITA, BMP ####[address] [place] [address] [facility] Glucose [Mass/Vol] 136 mg/dL High 70-100 [facility] Comment on above: Result Comment: [facility] Glucose Reference Range is dependent on time and content of last meal. Glucose of more than 200 mg/dL in a nonstressed, ambulatory subject supports the diagnosis of Diabetes Mellitus. ADA recommended reference range Performed By: #### C JUANITA, BMP ####[place] [address] [place] [phone] [facility] Potassium [Moles/Vol] 5.4 mmol/L High 3.5-5.[address] [facility] Comment on above: Performed By: #### C JUANITA, BMP ####[place] [id number] [facility] Sodium [Moles/Vol] 136 mmol/L Normal 136-145 [facility] Comment on above: Performed By: #### C JUANITA, BMP ####[place] [id number] [facility] Urea nitrogen [Mass/Vol] 33 mg/dL High 7-25 [facility] Comment on above: Performed By: #### C JUANITA, BMP ####[place] [id number] [place] Basophils Auto (Bld) [#/Vol] Ordered By: Jacques East on 02-14-2023 Basophils (Bld) [#/Vol] 0.0 10*3/uL 0.0-0.2 [facility] Basophils/100 WBC Auto (Bld) Ordered By: Obpatriciadaenrique Chirinosr on 02-14-2023 Basophils/100 WBC (Bld) 0.1 % . [facility] Calcium [Mass/volume] in Ser um or PlasmaOrdered By: Jacques East on 02-14-2023 Calcium [Mass/Vol] 9.4 mg/dL 8.6-10.3 [facility] Carbon dioxide, total [Moles /volume] in Serum or PlasmaOrdered By: Jacques Talbotomahannah on 02-14-2023 CO2 [Moles/Vol] 26.2 mmol/L 21.0-31.0 [facility] Chloride [Moles/volume] in S oralia or PlasmaOrdered By: Jacques Talbotomahannah on 02-14-2023 Chloride [Moles/Vol] 103 mmol/L 98-107 [facility] Complete Blood Count Auto Di ffon 02-14-2023 Basophils (Bld) [#/Vol] 0.0 10*3/uL Normal 0.0-0.2 [facility] Comment on above: Result Comment: PERF ORMED BY: [facility] [address] [place] [address] PATHOLOGIST [employer] JERAMY CALDWELL M.D. Performed By: #### C BC, BMP ####[address] Basophils/100 WBC (Bld) 0.1 % Normal . [facility] Comment on above: Performed By: #### C BC, BMP ####[address] Eosinophils (Bld) [#/Vol] 0.0 10*3/uL Normal 0.0-0.45 [facility] Comment on above: Performed By: #### C BC, BMP ####[address] Eosinophils/100 WBC (Bld) 0.0 % Normal . [facility] Comment on above: Performed By: #### C BC, BMP ####[address] Erythrocyte distribution width (RBC) [Ratio] 14.6 % Normal 11.9-15.3 [facility] Comment on above: Performed By: #### C BC, BMP ####[address] Hematocrit (Bld) [Volume fraction] 44.5 % Normal 34.0-46.4 [facility] Comment on above: Performed By: #### C BC, BMP ####[address] Hemoglobin (Bld) [Mass/Vol] 15.1 g/dL Normal 11.8-15.4 [facility] Comment on above: Performed By: #### C JUANITA, BMP ####[address] Lymphocytes (Bld) [#/Vol] 1.0 10*3/uL Normal 1.00-4.8 [facility] Comment on above: Performed By: #### C JUANITA, BMP ####[address] Lymphocytes/100 WBC (Bld) 7.6 % Normal . [facility] Comment on above: Performed By: #### C JUANITA, BMP ####[address] MCH (RBC) [Entitic mass] 30.6 pg Normal 24.7-34.3 [facility] Comment on above: Performed By: #### C JUANITA, BMP ####[address] MCV (RBC) [Entitic vol] 90.4 fL Normal 80-100 [facility] Comment on above: Performed By: #### C JUANITA, BMP ####[address] Mean Corpuscular HGB Conc 33.9 g/dL Normal 32.0-35.0 [facility] Comment on above: Performed By: #### C BC, BMP ####[address] Monocytes (Bld) [#/Vol] 0.6 10*3/uL Normal 0.0-0.8 [facility] Comment on above: Performed By: #### C BC, BMP ####[facility] [place] [address] [facility] Monocytes/100 WBC (Bld) 4.7 % Normal . [facility] Comment on above: Performed By: #### C JUANITA, BMP ####[address] [place] [address] [facility] Neutrophils (Bld) [#/Vol] 11.1 10*3/uL High 1.8-7.7 [facility] Comment on above: Performed By: #### C JUANITA, BMP ####[address] [place] [address] [facility] Neutrophils/100 WBC (Bld) 87.6 % Normal . [facility] Comment on above: Performed By: #### C JUANITA, BMP ####[address] [place] [address] [facility] NRBC% 0.0 /100{WBC} Normal 0-0.5 [facility] Comment on above: Performed By: #### C JUANITA, BMP ####[address] [place] [address] [facility] Platelet mean volume (Bld) [Entitic vol] 8.5 fL Normal 6.3-10.7 [facility] Comment on above: Performed By: #### C JUANITA, BMP ####[address] [place] [address] [facility] Platelets (Bld) [#/Vol] 220 10*3/uL Normal 150-450 [facility] Comment on above: Performed By: #### C JUANITA, BMP ####[address] [address] [facility] RBC (Bld) [#/Vol] 4.92 10*6/uL Normal 3.60-5.00 [facility] Comment on above: Performed By: #### C JUANITA, BMP ####[address] [place] [address] [facility] WBC (Bld) [#/Vol] 12.7 10*3/uL High 3.8-11.6 [facility] Comment on above: Performed By: #### C JUANITA, BMP ####[facility] [address] [place] [address] [facility] Creatinine [Mass/volume] in Serum or PlasmaOrdered By: Jacques East on 02-14-2023 Creatinine [Mass/Vol] 1.35 mg/dL 0.60-1.[address] [facility] Eosinophils Auto (Bld) [#/Vo l]Ordered By: Obreinaldo Talbotomar on 02-14-2023 Eosinophils (Bld) [#/Vol] 0.0 10*3/uL 0.0-0.45 [facility] Eosinophils/100 WBC Auto (Bl d)Ordered By: Obreinaldo Chirinosr on 02-14-2023 Eosinophils/100 WBC (Bld) 0.0 % . [facility] Erythrocyte distribution wid th Auto (RBC) [Ratio]Ordered By: Jacques East on 02-14-2023 Erythrocyte distribution width (RBC) [Ratio] 14.6 % 11.9-15.3 [facility] Glucose [Mass/volume] in Ser um or PlasmaOrdered By: Jacques East on 02-14-2023 Glucose [Mass/Vol] 136 mg/dL 70-100 [facility] Comment on above: ADA recommended refe rence rangeRandom Glucose Reference Range is dependent on time and content of last meal. Glucose of more than 200 mg/dL in a nonstressed, ambulatory subject supports the diagnosis of Diabetes Mellitus. Hematocrit Auto (Bld) [Volum e fraction]Ordered By: Jacques East on 02-14-2023 Hematocrit (Bld) [Volume fraction] 44.5 % 34.0-46.4 [facility] Hemoglobin [Mass/volume] in BloodOrdered By: Jacques Chirinosr on 02-14-2023 Hemoglobin (Bld) [Mass/Vol] 15.1 g/dL 11.8-15.4 [facility] Leukocytes [#/volume] correc elliot for nucleated erythrocytes in Blood by Automated counOrdered By: Jacques Talbotomar on 02-14-2023 WBC corrected for nucl RBC Auto (Bld) [#/Vol] 12.7 10*3/uL 3.8-11.6 [facility] Lymphocytes Auto (Bld) [#/Vo l]Ordered By: Obaydah Daromar on 02-14-2023 Lymphocytes (Bld) [#/Vol] 1.0 10*3/uL 1.00-4.8 [facility] Lymphocytes/100 WBC Auto (Bl d)Ordered By: Obaydah Daromar on 02-14-2023 Lymphocytes/100 WBC (Bld) 7.6 % . [facility] MCH Auto (RBC) [Entitic mass ]Ordered By: Obaydah Daromar on 02-14-2023 MCH (RBC) [Entitic mass] 30.6 pg 24.7-34.3 [facility] MCHC Auto (RBC) [Mass/Vol]Or dered By: Obaydah Daromar on 02-14-2023 MCHC (RBC) [Mass/Vol] 33.9 g/dL 32.0-35.[address] [facility] MCV Auto (RBC) [Entitic vol] Ordered By: Obaydah Daromar on 02-14-2023 MCV (RBC) [Entitic vol] 90.4 fL 80-100 [facility] Monocytes Auto (Bld) [#/Vol] Ordered By: Obaydah Daromar on 02-14-2023 Monocytes (Bld) [#/Vol] 0.6 10*3/uL 0.0-0.8 [facility] Monocytes/100 WBC Auto (Bld) Ordered By: Obaydah Daromar on 02-14-2023 Monocytes/100 WBC (Bld) 4.7 % . [facility] Neutrophils Auto (Bld) [#/Vo l]Ordered By: Obaydah Daromar on 02-14-2023 Neutrophils (Bld) [#/Vol] 11.1 10*3/uL 1.8-7.7 [facility] Neutrophils/100 WBC Auto (Bl d)Ordered By: Obaydah Daromar on 02-14-2023 Neutrophils/100 WBC (Bld) 87.6 % . [facility] No Panel InformationOrdered By: Obpatriciadah Daromar on 02-14-2023 Estimated GFR (CKD-EPI) 44.991 mL/Min [facility] Creatinine Clearance (Chem 40.59 [facility] Nucleated erythrocytes [Pres ence] in Blood by Automated countOrdered By: Jacques Talbotomar on 02-14-2023 Nucleated RBC Auto Ql (Bld) 0.0 /100{WBC} 0-0.5 [facility] Platelet mean volume Auto (B ld) [Entitic vol]Ordered By: Obpatriciadah Daromar on 02-14-2023 Platelet mean volume (Bld) [Entitic vol] 8.5 fL 6.3-10.7 [facility] Platelets Auto (Bld) [#/Vol] Ordered By: Obpatriciadah Daromar on 02-14-2023 Platelets (Bld) [#/Vol] 220 10*3/uL 150-450 [facility] Potassium [Moles/volume] in Serum or PlasmaOrdered By: Obpatriciadah Daromar on 02-14-2023 Potassium [Moles/Vol] 5.4 mmol/L 3.5-5.[address] [facility] RBC Auto (Bld) [#/Vol]Ordere d By: Obpatriciadah Daromar on 02-14-2023 RBC (Bld) [#/Vol] 4.92 10*6/uL 3.60-5.00 [facility] Serum or plasma anion gap de terminationOrdered By: Obpatriciadah Daromar on 02-14-2023 Anion gap [Moles/Vol] 12.2 mmol/L 6.0-15.0 [facility] Sodium [Moles/volume] in Ser um or PlasmaOrdered By: Obaydah Daromar on 02-14-2023 Sodium [Moles/Vol] 136 mmol/L 136-145 [facility] Urea nitrogen [Mass/volume] in Serum or PlasmaOrdered By: Obaydah Daromar on 02-14-2023 Urea nitrogen [Mass/Vol] 33 mg/dL 7-25 [facility] WBC Auto (Bld) [#/Vol]Ordere d By: Obaydah Daromar on 02-14-2023 WBC (Bld) [#/Vol] 12.7 10*3/uL 3.8-11.6 [facility] Alanine aminotransferase [En zymatic activity/volume] in Serum or PlasmaOrdered By: Obpatriciadaenrique Talbotomar on 02-13-2023 ALT [Catalytic activity/Vol] 16 U/L 7-52 [facility] Albumin [Mass/volume] in Ser um or Plasma by Bromocresol green (BCG) dye binding methoOrdered By: Obpatriciadaenrique Talbotomar on 02-13-2023 Albumin BCG dye [Mass/Vol] 4.0 g/dL 3.5-5.7 [facility] Alkaline phosphatase [Enzyma tic activity/volume] in Serum or PlasmaOrdered By: Obpatriciadaenrique Talbotomar on 02-13-2023 ALP [Catalytic activity/Vol] 57 U/L 34-104 [facility] Aspartate aminotransferase [ Enzymatic activity/volume] in Serum or PlasmaOrdered By: Obpatriciadaenrique Talbotomar on 02-13-2023 AST [Catalytic activity/Vol] 22 U/L 13-39 [facility] Bilirubin.total [Mass/volume ] in Serum or PlasmaOrdered By: Obpatriciadaenrique Talbotomar on 02-13-2023 Bilirubin [Mass/Vol] 0.6 mg/dL 0.3-1.0 [facility] Complete Blood Count Auto Di ffon 02-13-2023 Basophils (Bld) [#/Vol] 0.0 10*3/uL Normal 0.0-0.2 [facility] Comment on above: Result Comment: PERF ORMED BY: [facility] [address] [place] [address] PATHOLOGIST [employer] JERAMY CALDWELL M.D. Performed By: #### C BC, MG, CMP ####[facility] [id number] [place] [id number] [place] Basophils/100 WBC (Bld) 0.2 % Normal . [facility] Comment on above: Performed By: #### C BC, MG, CMP ####[facility] [id number] [place] [id number] [place] Eosinophils (Bld) [#/Vol] 0.0 10*3/uL Normal 0.0-0.45 [facility] Comment on above: Performed By: #### C JUANITA MG, CMP ####[address] Eosinophils/100 WBC (Bld) 0.0 % Normal . [facility] Comment on above: Performed By: #### C JUANITA MG, CMP ####[address] Erythrocyte distribution width (RBC) [Ratio] 14.4 % Normal 11.9-15.3 [facility] Comment on above: Performed By: #### C JUANITA MG, CMP ####[address] Hematocrit (Bld) [Volume fraction] 43.2 % Normal 34.0-46.4 [facility] Comment on above: Performed By: #### C JUANITA MG, CMP ####[address] Hemoglobin (Bld) [Mass/Vol] 14.6 g/dL Normal 11.8-15.4 [facility] Comment on above: Performed By: #### C JUANITA MG, CMP ####[address] Lymphocytes (Bld) [#/Vol] 2.7 10*3/uL Normal 1.00-4.8 [facility] Comment on above: Performed By: #### C BC MG, CMP ####[address] Lymphocytes/100 WBC (Bld) 18.3 % Normal . [facility] Comment on above: Performed By: #### C JUANITA MG, CMP ####[address] MCH (RBC) [Entitic mass] 30.5 pg Normal 24.7-34.3 [facility] Comment on above: Performed By: #### C JUANITA MG, CMP ####[place] [id number] [place] MCV (RBC) [Entitic vol] 90.1 fL Normal 80-100 [facility] Comment on above: Performed By: #### C MG JUANITA, CMP ####[address] Mean Corpuscular HGB Conc 33.8 g/dL Normal 32.0-35.0 [facility] Comment on above: Performed By: #### C JUANITA MG, CMP ####[address] Monocytes (Bld) [#/Vol] 1.2 10*3/uL High 0.0-0.8 [facility] Comment on above: Performed By: #### C MG JUANITA, CMP ####[address] Monocytes/100 WBC (Bld) 7.9 % Normal . [facility] Comment on above: Performed By: #### C MG JUANITA, CMP ####[address] Neutrophils (Bld) [#/Vol] 11.0 10*3/uL High 1.8-7.7 [facility] Comment on above: Performed By: #### Kait GRANT MG, CMP ####[address] Neutrophils/100 WBC (Bld) 73.6 % Normal . [facility] Comment on above: Performed By: #### C JUANITA MG, CMP ####[address] NRBC% 0.1 /100{WBC} Normal 0-0.5 [facility] Comment on above: Performed By: #### C JUANITA MG, CMP ####[address] Platelet mean volume (Bld) [Entitic vol] 7.8 fL Normal 6.3-10.7 [facility] Comment on above: Performed By: #### Kait GRANT MG, CMP ####[place] [address] [place] [id number] [facility] Platelets (Bld) [#/Vol] 212 10*3/uL Normal 150-450 [facility] Comment on above: Performed By: #### C BC, MG, CMP ####[address] RBC (Bld) [#/Vol] 4.80 10*6/uL Normal 3.60-5.00 [facility] Comment on above: Performed By: #### C BC, MG, CMP ####[place] [id number] [facility] WBC (Bld) [#/Vol] 14.9 10*3/uL High 3.8-11.6 [facility] Comment on above: Performed By: #### C BC, MG, CMP ####[address] Comprehensive Metabolic Pane franco 02-13-2023 Albumin [Mass/Vol] 4.0 g/dL Normal 3.5-5.7 [facility] Comment on above: Performed By: #### C BC, MG, CMP ####[place] [id number] [facility] Albumin/Globulin [Mass ratio] 1.6 {ratio} Normal [facility] Comment on above: Performed By: #### C BC, MG, CMP ####[place] [id number] [facility] ALP [Catalytic activity/Vol] 57 U/L Normal 34-104 [facility] Comment on above: Performed By: #### C BC, MG, CMP ####[place] [id number] [facility] ALT [Catalytic activity/Vol] 16 U/L Normal 7-52 [facility] Comment on above: Performed By: #### C BC, MG, CMP ####[place] [id number] [facility] Anion gap [Moles/Vol] 9.4 mmol/L Normal 6.0-15.[address] [facility] Comment on above: Performed By: #### C BC, MG, CMP ####[place] [id number] [facility] AST [Catalytic activity/Vol] 22 U/L Normal 13-39 [facility] Comment on above: Performed By: #### C BC, MG, CMP ####[place] [id number] [facility] Bilirubin [Mass/Vol] 0.6 mg/dL Normal 0.3-1.0 [facility] Comment on above: Performed By: #### C BC, MG, CMP ####[address] Calcium [Mass/Vol] 9.2 mg/dL Normal 8.6-10.3 [facility] Comment on above: Performed By: #### C BC, MG, CMP ####[place] [id number] [facility] Chloride [Moles/Vol] 105 mmol/L Normal 98-107 [facility] Comment on above: Performed By: #### C BC, MG, CMP ####[place] [id number] [facility] CO2 [Moles/Vol] 27.1 mmol/L Normal 21.0-31.0 [facility] Comment on above: Performed By: #### C BC, MG, CMP ####[place] [id number] [facility] Creatinine [Mass/Vol] 1.45 mg/dL High 0.60-1.[address] [facility] Comment on above: Performed By: #### C BC, MG, CMP ####[place] [id number] [facility] Creatinine Clr Calc Pharmacy 37.90 Normal [facility] Comment on above: Performed By: #### C BC, MG, CMP ####[place] [id number] [facility] GFR/1.73 sq M.predicted MDRD (S/P/Bld) [Vol rate/Area] 41.294 mL/min/{1.73_m2} Normal [facility] Comment on above: Performed By: #### C BC, MG, CMP ####[address] Globulin (S) [Mass/Vol] 2.5 g/dL Normal [facility] Comment on above: Performed By: #### C BC, MG, CMP ####[place] [id number] [facility] Glucose [Mass/Vol] 92 mg/dL Normal 70-100 [facility] Comment on above: Result Comment: [facility] Glucose Reference Range is dependent on time and content of last meal. Glucose of more than 200 mg/dL in a nonstressed, ambulatory subject supports the diagnosis of Diabetes Mellitus. ADA recommended reference range Performed By: #### C BC, MG, CMP ####[address] Potassium [Moles/Vol] 4.5 mmol/L Normal 3.5-5.[address] [facility] Comment on above: Performed By: #### C BC, MG, CMP ####[place] [id number] [facility] Protein [Mass/Vol] 6.5 g/dL Normal 6.4-8.9 [facility] Comment on above: Performed By: #### C BC, MG, CMP ####[place] [id number] [facility] Sodium [Moles/Vol] 137 mmol/L Normal 136-145 [facility] Comment on above: Performed By: #### C BC, MG, CMP ####[place] [id number] [facility] Urea nitrogen [Mass/Vol] 28 mg/dL High 7-25 [facility] Comment on above: Performed By: #### C BC, MG, CMP ####[place] [id number] [facility] Globulin Calc (S) [Mass/Vol] Ordered By: Jacques East on 02-13-2023 Globulin (S) [Mass/Vol] 2.5 g/dL [facility] Magnesiumon 02-13-2023 Magnesium [Mass/Vol] 1.8 mg/dL Low 1.9-2.7 [facility] Comment on above: Result Comment: PERF ORMED BY: [facility] [address] [place] [address] PATHOLOGIST [employer] JERAMY CALDWELL M.D. Performed By: #### C BC, MG, CMP ####[facility] [address] [place] [address] [facility] Magnesium [Mass/volume] in S oralia or PlasmaOrdered By: Obpatriciadah Daromar on 02-13-2023 Magnesium [Mass/Vol] 1.8 mg/dL 1.9-2.7 [facility] Protein [Mass/volume] in Ser um or PlasmaOrdered By: Obpatriciadaenrique Daromar on 02-13-2023 Protein [Mass/Vol] 6.5 g/dL 6.4-8.9 [facility] Serum or plasma albumin/glob ulin mass ratioOrdered By: Obpatriciadah Daromar on 02-13-2023 Albumin/Globulin [Mass ratio] 1.6 {ratio} [facility] Activated partial thrombopla stin time (aPTT) in platelet poor plasma by coagulation aOrdered By: Sally Valle on 02-12-2023 aPTT Coag (PPP) [Time] 25.6 s 25.1-36.5 [facility] Comment on above: A hematocrit value g reater than 55% may lead to inaccurate results in coagulation testing. Patients having hematocrit values >55% require a special collection tube for coagulation studies. Please contact the laboratory at [phone] for redraw instructions. Aerobic Cultureon 02-12-2023 Aerobic Culture Light Normal Respira tory Zoe 2 Days Gram Stain Result Rare Epithelial Cells 1+ White Blood Cells Rare Gram Positive Coccobacilli PERFORMED BY: [facility] [address] [place] [address] PATHOLOGIST [employer] JERAMY CALDWELL M.D. Normal [facility] Comment on above: Performed By: #### A HANNAH, #### [facility] [address] Auth for Release of Medical Recordson 02-12-2023 Auth for Release of Medical Records [id number] Normal [facility] Automated erythrocytes count in urine sediment (number/area)Ordered By: Obpatriciadah Jobzippersomar on 02-12-2023 RBC Auto (Urine sed) [#/Area] 1-2 [HPF] 0-4 [facility] Automated leukocytes count i n urine sediment (number/area)Ordered By: Obaydah Jobzippersomar on 02-12-2023 WBC Auto (Urine sed) [#/Area] 3-4 [HPF] 0-4 [facility] Bilirubin Test strip Ql (U)O rdered By: Jaraddaenrique Chirinosr on 02-12-2023 Bilirubin Ql (U) Negative Negative [facility] C Urineon 02-12-2023 Bacteria identified Cx Nom [...] This test was performed at: [facility], [address] [place] [address], [phone] , , [facility] Comment on above: Performed By: #### 2 [id number] ####[place] [id number] [place] [address] Coagulation Profileon 2022 aPTT Coag (Bld) [Time] 25.6 s Normal 25.1-36.5 [facility] Comment on above: Result Comment: A he matocrit value greater than 55% may lead to inaccurate results in coagulation testing. Patients having hematocrit values >55% require a special collection tube for coagulation studies. Please contact the laboratory at [phone] for redraw instructions. PERFORMED BY: [facility] [address] [id number] PATHOLOGIST [employer] JERAMY CALDWELL M.D. Performed By: #### C JUANITA PP, CMP ####[place] [id number] [place] [id number] [facility] INR Coag (PPP) [Relative time] 0.9 {INR} Normal [facility] Comment on above: Result Comment: INR [...] 3 - 4.5 Performed By: #### C JUANITA PP, CMP ####[place] [id number] [facility] PT Coag (PPP) [Time] 10.9 s Normal 9.0-12.9 [facility] Comment on above: Result Comment: A he matocrit value greater than 55% may lead to inaccurate results in coagulation testing. Patients having hematocrit values >55% require a special collection tube for coagulation studies. Please contact the laboratory at [phone] for redraw instructions. Performed By: #### C JUANITA, PP, CMP ####[place] [id number] [facility] Color Auto (U)Ordered By: Glenroy East on 02-12-2023 Color (U) Yellow Yellow [facility] Complete Blood Count Auto Di ffon 02-12-2023 Basophils (Bld) [#/Vol] 0.0 10*3/uL Normal 0.0-0.2 [facility] Comment on above: Result Comment: PERF ORMED BY: [facility] [address] [address] PATHOLOGIST [employer] JERAMY CALDWELL M.D. Performed By: #### C JUANITA, PP, CMP #### [facility] [address] [place] [address] [place] Basophils/100 WBC (Bld) 0.2 % Normal . [facility] Comment on above: Performed By: #### C JUANITA, PP, CMP #### [facility] [address] [place] [address] [place] Eosinophils (Bld) [#/Vol] 0.0 10*3/uL Normal 0.0-0.45 [facility] Comment on above: Performed By: #### C JUANITA, PP, CMP #### [facility] [address] [place] [address] [place] Eosinophils/100 WBC (Bld) 0.0 % Normal . [facility] Comment on above: Performed By: #### C JUANITA PP, CMP #### [address] Erythrocyte distribution width (RBC) [Ratio] 14.6 % Normal 11.9-15.3 [facility] Comment on above: Performed By: #### C JUANITA, PP, CMP #### [address] Hematocrit (Bld) [Volume fraction] 46.1 % Normal 34.0-46.4 [facility] Comment on above: Performed By: #### C JUANITA PP, CMP #### [place] [address] [place] Hemoglobin (Bld) [Mass/Vol] 15.6 g/dL High 11.8-15.4 [facility] Comment on above: Performed By: #### C JUANITA, PP, CMP #### [facility] [address] [place] [address] [place] Lymphocytes (Bld) [#/Vol] 0.6 10*3/uL Low 1.00-4.8 [facility] Comment on above: Performed By: #### C JUANITA, PP, CMP #### [facility] [address] [place] [address] [place] Lymphocytes/100 WBC (Bld) 4.0 % Normal . [facility] Comment on above: Performed By: #### C JUANITA, PP, CMP #### [facility] [address] MCH (RBC) [Entitic mass] 30.6 pg Normal 24.7-34.3 [facility] Comment on above: Performed By: #### C JUANITA, PP, CMP #### [address] MCV (RBC) [Entitic vol] 90.6 fL Normal 80-100 [facility] Comment on above: Performed By: #### C JUANITA, PP, CMP #### [address] Mean Corpuscular HGB Conc 33.8 g/dL Normal 32.0-35.0 [facility] Comment on above: Performed By: #### C JUANITA, PP, CMP #### [address] Monocytes (Bld) [#/Vol] 0.3 10*3/uL Normal 0.0-0.8 [facility] Comment on above: Performed By: #### C JUANITA, PP, CMP #### [address] Monocytes/100 WBC (Bld) 1.8 % Normal . [facility] Comment on above: Performed By: #### C JUANITA, PP, CMP #### [address] Neutrophils (Bld) [#/Vol] 14.1 10*3/uL High 1.8-7.7 [facility] Comment on above: Performed By: #### C BC, PP, CMP #### [address] Neutrophils/100 WBC (Bld) 94.0 % Normal . [facility] Comment on above: Performed By: #### C BC, PP, CMP #### [address] NRBC% 0.1 /100{WBC} Normal 0-0.5 [facility] Comment on above: Performed By: #### C BC, PP, CMP #### [facility] [address] Platelet mean volume (Bld) [Entitic vol] 7.9 fL Normal 6.3-10.7 [facility] Comment on above: Performed By: #### C BC, PP, CMP #### [address] Platelets (Bld) [#/Vol] 236 10*3/uL Normal 150-450 [facility] Comment on above: Performed By: #### C BC, PP, CMP #### [address] RBC (Bld) [#/Vol] 5.09 10*6/uL High 3.60-5.00 [facility] Comment on above: Performed By: #### C BC, PP, CMP #### [address] WBC (Bld) [#/Vol] 15.0 10*3/uL High 3.8-11.6 [facility] Comment on above: Performed By: #### C BC, PP, CMP #### [address] Comprehensive Metabolic Pane franco 02-12-2023 Albumin [Mass/Vol] 4.6 g/dL Normal 3.5-5.7 [facility] Comment on above: Performed By: #### C BC, PP, CMP #### [address] Albumin/Globulin [Mass ratio] 1.5 {ratio} Normal [facility] Comment on above: Performed By: #### C BC, PP, CMP #### [facility] [address] [place] [address] ALP [Catalytic activity/Vol] 70 U/L Normal 34-104 [facility] Comment on above: Performed By: #### C BC, PP, CMP #### [address] ALT [Catalytic activity/Vol] 19 U/L Normal 7-52 [facility] Comment on above: Performed By: #### C BC, PP, CMP #### [facility] [address] [place] [address] [place] Anion gap [Moles/Vol] Not performed Normal 6.0-15.0 [facility] Comment on above: Performed By: #### C BC, PP, CMP #### [facility] [address] [place] [address] [place] AST [Catalytic activity/Vol] 29 U/L Normal 13-39 [facility] Comment on above: Performed By: #### C BC, PP, CMP #### [facility] [address] [place] [address] [place] Bilirubin [Mass/Vol] 0.5 mg/dL Normal 0.3-1.0 [facility] Comment on above: Performed By: #### C BC, PP, CMP #### [facility] [address] [place] [address] [place] Calcium [Mass/Vol] 9.9 mg/dL Normal 8.6-10.3 [facility] Comment on above: Performed By: #### C BC, PP, CMP #### [facility] [address] [place] [address] [place] Chloride [Moles/Vol] 106 mmol/L Normal 98-107 [facility] Comment on above: Performed By: #### C BC, PP, CMP #### [facility] [address] [place] [id number] [place] CO2 [Moles/Vol] 20.4 mmol/L Low 21.0-31.0 [facility] Comment on above: Performed By: #### C BC, PP, CMP #### [facility] [address] [place] [id number] [place] Creatinine [Mass/Vol] 1.65 mg/dL High 0.60-1.[address] [facility] Comment on above: Performed By: #### C BC, PP, CMP #### [facility] [address] [place] [phone] [place] Creatinine Clr Calc Pharmacy 34.03 Normal [facility] Comment on above: Result Comment: PERF ORMED BY: [place] [address] PATHOLOGIST [employer] JERAMY CALDWELL M.D. Performed By: #### C BC, PP, CMP #### [place] [address] [place] GFR/1.73 sq M.predicted MDRD (S/P/Bld) [Vol rate/Area] 35.363 mL/min/{1.73_m2} Normal [facility] Comment on above: Performed By: #### C BC, PP, CMP #### [address] Globulin (S) [Mass/Vol] 3.1 g/dL Normal [facility] Comment on above: Performed By: #### C BC, PP, CMP #### [address] Glucose [Mass/Vol] 157 mg/dL High 70-100 [facility] Comment on above: Result Comment: [facility] Glucose Reference Range is dependent on time and content of last meal. Glucose of more than 200 mg/dL in a nonstressed, ambulatory subject supports the diagnosis of Diabetes Mellitus. ADA recommended reference range Performed By: #### C JUANITA, PP, CMP #### [address] Potassium Normal 3.5-5.1 [facility] Comment on above: Result Comment: Spec imen hemolyzed, redraw requested Performed By: #### C BC, PP, CMP #### [place] [address] [place] Protein [Mass/Vol] 7.7 g/dL Normal 6.4-8.9 [facility] Comment on above: Performed By: #### C BC, PP, CMP #### [address] Sodium [Moles/Vol] 140 mmol/L Normal 136-145 [facility] Comment on above: Performed By: #### C BC, PP, CMP #### [address] [place] [address] [place] Urea nitrogen [Mass/Vol] 32 mg/dL High 7- [facility] Comment on above: Performed By: #### C BC, PP, CMP #### [facility] [address] [place] [address] Dipstick and Microscopicon 1 04-15-2022 Appearance (U) Clear Normal Clear [facility] Comment on above: Order Comment: Name Collection Type:: Clean-Voided Midstream Performed By: #### A DDONUAPLUS #### [address] Bacteria,Urine None Seen Normal None Seen [facility] Comment on above: Order Comment: Name Collection Type:: Clean-Voided Midstream Performed By: #### A DDONUAPLUS #### [address] Bilirubin,Urine Negative Normal Negative [facility] Comment on above: Order Comment: Name Collection Type:: Clean-Voided Midstream Performed By: #### A DDONUAPLUS #### [address] Color (U) Yellow Normal Yellow [facility] Comment on above: Order Comment: Name Collection Type:: Clean-Voided Midstream Performed By: #### A DDONUAPLUS #### [facility] [address] [place] [address] [place] Glucose Ql (U) Normal Normal Normal [facility] Comment on above: Order Comment: Name Collection Type:: Clean-Voided Midstream Performed By: #### A DDONUAPLUS #### [facility] [address] [place] [address] [place] Hyaline Casts,Urine 0-8 Normal 0-8 [facility] Comment on above: Order Comment: Name Collection Type:: Clean-Voided Midstream Result Comment: PERF ORMED BY: [place] [address] PATHOLOGIST [employer] JERAMY CALDWELL M.D. Performed By: #### A DDONUAPLUS #### [facility] [address] [place] [address] [place] Ketones Ql (U) Negative Normal Negative [facility] Comment on above: Order Comment: Name Collection Type:: Clean-Voided Midstream Performed By: #### A DDONUAPLUS #### [address] Leukocyte esterase Test strip Ql (U) 1+ High Negative [facility] Comment on above: Order Comment: Name Collection Type:: Clean-Voided Midstream Performed By: #### A DDONUAPLUS #### [place] [address] [place] Nitrite,Urine Negative Normal Negative [facility] Comment on above: Order Comment: Name Collection Type:: Clean-Voided Midstream Performed By: #### A DDONUAPLUS #### [place] [address] [place] Occult Blood,Urine Negative Normal Negative [facility] Comment on above: Order Comment: Name Collection Type:: Clean-Voided Midstream Result Comment: PERF ORMED BY: [place] [address] PATHOLOGIST [employer] JERAMY CALDWELL M.D. Performed By: #### A DDONUAPLUS #### [place] [address] [place] pH (U) 5.0 [pH] Normal 5.0-9.0 [facility] Comment on above: Order Comment: Name Collection Type:: Clean-Voided Midstream Performed By: #### A DDONUAPLUS #### [place] [address] [place] Protein,Urine Negative Normal Negative [facility] Comment on above: Order Comment: Name Collection Type:: Clean-Voided Midstream Performed By: #### A DDONUAPLUS #### [place] [address] [place] RBC,Urine 1-2 Normal 0-4 [facility] Comment on above: Order Comment: Name Collection Type:: Clean-Voided Midstream Performed By: #### A DDONUAPLUS #### [facility] [address] [place] [address] Specificy [place],Urine 1.017 Normal 1.001-1.03 0 [facility] Comment on above: Order Comment: Name Collection Type:: Clean-Voided Midstream Performed By: #### A DDONUAPLUS #### [address] Squamous Epithelial Cell,Urine 0-1 Normal 0-2 [facility] Comment on above: Order Comment: Name Collection Type:: Clean-Voided Midstream Performed By: #### A DDONUAPLUS #### [address] Urobilinogen,Urine Normal Normal Normal [facility] Comment on above: Order Comment: Name Collection Type:: Clean-Voided Midstream Performed By: #### A DDONUAPLUS #### [address] WBC,Urine 3-4 Normal 0-4 [facility] Comment on above: Order Comment: Name Collection Type:: Clean-Voided Midstream Performed By: #### A DDONUAPLUS #### [address] ECG 12 lead ECGon 02-12-2023 ECG 12 lead ECG [facility] [place] [address] [place] [address] Electrocardiograph Report Signed Patient: Deysi Hernandez MR#: [id number] : 1960 Acct:[id number] Age/Sex: 62 / F ADM Date: 02/12/23 Loc: Room: [address] [place] [address] Type: ADM IN Attending Dr: Jacques East [...] Signed By Bj Bay DO 02/13 1109 [facility] Gram Stainon 02-12-2023 Microscopic observation Gram stain Nom (Unsp spec) Gram Stain Result Rare Epithelial Cells 1+ White Blood Cells Rare Gram Positive Coccobacilli PERFORMED BY: [place] [address] PATHOLOGIST [employer] JERAMY CALDWELL M.D. [facility] Comment on above: Performed By: #### A [facility] #### [address] Gram stain for investigation of transfusion reactionOrdered By: Jacques East on 02-12-2023 Microscopic observation Gram stain Nom (Unsp spec) [facility] Microscopic observation Gram stain Nom (Unsp spec) 2 Days [facility] INR in Platelet poor plasma by Coagulation assayOrdered By: Sally Valle on 02-12-2023 INR Coag (PPP) [Relative time] 0.9 {INR} [facility] Comment on above: INR Therapeutic Rang [...] on 02-12-2023 Ketones (U) [Mass/Vol] Negative Negative [facility] - UrinalysisOrder ed By: Jacques East on 02-12-2023 Hyaline casts LM Ql (Urine sed) 0-8 [LPF] 0-8 [facility] Magnesiumon 02-12-2023 Magnesium [Mass/Vol] 1.8 mg/dL Low 1.9-2.7 [facility] Comment on above: Result Comment: PERF ORMED BY: [facility] [address] [place] [address] PATHOLOGIST [employer] JERAMY CALDWELL M.D. Performed By: #### M G ####[place] [address] [place] [address] [facility] Nitrite Test strip Ql (U)Ord ered By: Jacques East on 02-12-2023 Nitrite Ql (U) Negative Negative [facility] Protein Auto test strip (U) [Mass/Vol]Ordered By: Jacques East on 02-12-2023 Protein (U) [Mass/Vol] Negative Negative [facility] Prothrombin time (PT)Ordered By: Sally Valle on 02-12-2023 PT Coag (PPP) [Time] 10.9 s 9.0-12.9 [facility] Comment on above: A hematocrit value g reater than 55% may lead to inaccurate results in coagulation testing. Patients having hematocrit values >55% require a special collection tube for coagulation studies. Please contact the laboratory at [phone] for redraw instructions. Redraw Potassiumon 3 Potassium [Moles/Vol] 4.4 mmol/L Normal 3.5-5.[address] [facility] Comment on above: Order Comment: 1ST S pecimen hemolyzed, redraw requested Result Comment: PERF ORMED BY: [facility] [address] [place] [address] PATHOLOGIST [employer] JERAMY CALDWELL M.D. Performed By: #### R EDRAW K ####[place] [address] [place] [address] [facility] Specific gravity Auto test s trip (U) [Rel density]Ordered By: Jacques East on 02-12-2023 Specific gravity (U) [Rel density] 1.017 1.001-1.03 0 [facility] Squamous epithelial cells de tection in urine sediment by light microscopyOrdered By: Jacques East on 02-12-2023 Epithelial cells.squamous LM Ql (Urine sed) 0-1 [HPF] 0-2 [facility] Troponin I High Sensitivityo n 02-12-2023 Troponin I High Sensitivity 43.8 pg/mL High 0.0-15.0 [facility] Comment on above: Result Comment: PERF ORMED BY: [place] [address] PATHOLOGIST [employer] JERAMY CALDWELL M.D. Performed By: #### H S TROP ####[place] [address] [place] [address] [facility] Troponin I High Sensitivity 70.6 pg/mL Off scale high 0.0-15.0 [facility] Comment on above: Result Comment: Crit ical Result : Called to and read back by: BRANDON LEVINE at: 02/12/2023 08:07:31 by:LUCIANO PERFORMED BY: [address] [id number] PATHOLOGIST [employer] JERAMY CALDWELL M.D. Performed By: #### H S TROP ####[address] [address] [facility] Troponin I.cardiac [Mass/vol ume] in Serum or Plasma by Detection limit <= 0.01 ng/Ordered By: Sally Valle on 02-12-2023 Troponin I.cardiac DL <= 0.01 ng/mL [Mass/Vol] 43.8 pg/mL 0.0-15.0 [facility] Urine bacteria detection by automated methodOrdered By: Jacques East on 02-12-2023 Bacteria Auto Ql (U) None seen None Seen [facility] Urine clarity by refractomet ry automatedOrdered By: Jacques East on 02-12-2023 Clarity Refractometry automated (U) Clear Clear [facility] Urine glucose measurement by automated test strip (mass/volume)Ordered By: Jacques East on 02-12-2023 Glucose Auto test strip (U) [Mass/Vol] Normal mg/dL Normal [facility] Urine hemoglobin detection b y automated test stripOrdered By: Jacques East on 02-12-2023 Hemoglobin Auto test strip Ql (U) Negative Negative [facility] Urine leukocyte esterase det ection by automated test stripOrdered By: Jacques East on 02-12-2023 Leukocyte esterase Auto test strip Ql (U) 1+ Negative [facility] Urobilinogen Auto test strip (U) [Mass/Vol]Ordered By: Jacques East on 02-12-2023 Urobilinogen (U) [Mass/Vol] Normal mg/dL Normal [facility] XR chest 1V portableon 02-12 XR chest 1V portable [facility] [place] [address] XRay Report Signed Patient: Deysi Hernandez MR#: [id number] : 1960 Acct:[id number] Age/Sex: 62 / F ADM Date: 02/12/23 Loc: Room: [address] [place] [address] Type: ADM IN Attending Dr: Jacques East [...] Bj Ma M.D.02/12/2023 12:40 PM Dictation Location: [place] [address] Transcribed By: BRUCE 02/12/23 1240 Dictated By: Bj Ma DO 02/12/23 1237 Signed By: 02/12/23 1240 Normal [facility] pH Auto test strip (U)Ordere d By: Jacques East on 02-12-2023 pH (U) 5.0 [pH] 5.0-9.0 [facility] Ambulatory Visit Summaryon 1 04-13-2022 Ambulatory Visit Summary DEYSI HERNANDEZ :1960 Visit Date:02/10/2023 Ambulatory Visit Instructions Your Diagnosis Dysuria Tests Performed Urnls Dip Stick Auto w/o Microscopy POC 86413 Your Care Team Attending Physician - Alex [...] Urnls Dip Stick Auto w/o Microscopy POC 63430 (02/10/2023) Bilirubin Urine Dipstick - Negative Blood Urine Dipstick - 2+ Moderate Glucose Urine Dipstick - Negative Ketones Urine Dipstick - Negative Leukocytes Urine Dipstick - 1+ Small Nitrite Urine Dipstick - Positive Protein Urine Dipstick - Negative Specific [place] Urine Dipstick - 1.015 Urine Appearance Urine [...] for choosing us for your care. Normal [facility] Auto Diffon 02-10-2023 Basophils/100 WBC (Bld) 1.3 % Normal 0.0-2.0 [facility] Comment on above: Order Comment: Order Added by Discern Expert. Performed By: #### 2 887919, 84736685, 12271068, 4873197, 6494068, 76028170, 01908769 ####[facility] [address] [place] [address] Basophils/Leukocytes Auto (Bld) [Pure # fraction] 0.1 E9/L Normal 0.0-0.2 [facility] Comment on above: Order Comment: Order Added by Discern Expert. Performed By: #### 2 582041, 43225315, 24543817, 9678965, 3228438, 24252315, 13074652 ####[facility] [address] [place] [address] Eosinophils/100 WBC (Bld) 1.5 % Normal 0.0-8.0 [facility] Comment on above: Order Comment: Order Added by Discern Expert. Performed By: #### 2 261027, 37491339, 62117517, 7385263, 7678496, 39888330, 64647996 ####[facility] [address] [place] [address] Eosinophils/Leukocytes Auto (Bld) [Pure # fraction] 0.1 E9/L Normal 0.0-0.5 [facility] Comment on above: Order Comment: Order Added by Discern Expert. Performed By: #### 2 974391, 57318842, 21404151, 9657785, 3744150, 11217495, 11026857 ####[place] [address] [place] [address] Lymphocytes/100 WBC (Bld) 16.8 % Normal 14.0-50.0 [facility] Comment on above: Order Comment: Order Added by Discern Expert. Performed By: #### 2 082185, 53447203, 85495774, 6400691, 5779775, 83138576, 77780969 ####[address] [address] Lymphocytes/Leukocytes Auto (Bld) [Pure # fraction] 1.6 E9/L Normal 1.0-4.0 [facility] Comment on above: Order Comment: Order Added by Edmund Expert. Performed By: #### 2 591897, 33073686, 89077345, 3690414, 8521942, 21257492, 06122658 ####[address] [address] Monocytes/100 WBC (Bld) 9.8 % Normal 4.0-14.0 [facility] Comment on above: Order Comment: Order Added by Discern Expert. Performed By: #### 2 063633, 38685588, 45428473, 3244268, 7069493, 93843904, 15714485 ####[place] [address] [place] [address] Monocytes/Leukocytes Auto (Bld) [Pure # fraction] 0.9 E9/L Normal 0.2-1.0 [facility] Comment on above: Order Comment: Order Added by Edmund Expert. Performed By: #### 2 127676, 56724105, 29411806, 0322519, 7787043, 30429887, 83521134 ####[address] [place] [address] Neutrophils/100 WBC (Bld) 70.6 % Normal 36.0-75.0 [facility] Comment on above: Order Comment: Order Added by Discern Expert. Performed By: #### 2 810144, 91784650, 03934654, 4631901, 9238532, 73058536, 36313894 ####[facility] [address] [place] [address] Neutrophils/Leukocytes Auto (Bld) [Pure # fraction] 6.7 E9/L Normal 2.0-7.5 [facility] Comment on above: Order Comment: Order Added by Discern Expert. Performed By: #### 2 238720, 29192266, 45344261, 4853580, 3621399, 66500383, 93347352 ####[facility] [address] [place] [address] BMPon 02-10-2023 Anion gap [Moles/Vol] 14 mmol/L Normal 6-16 [facility] Comment on above: Performed By: #### 2 163633, 43442035, 13892853, 0633525, 5385578, 00625358, 28439008 ####[facility] [address] [place] [address] BUN/Creat Ratio 12 No Units Normal 10-20 [facility] Comment on above: Performed By: #### 2 583658, 84923236, 29476287, 5816969, 9098525, 60980710, 94297722 ####[facility] [address] [place] [address] Calcium [Mass/Vol] 9.7 mg/dL Normal 8.9-11.1 [facility] Comment on above: Performed By: #### 2 881318, 61515090, 63990336, 8523325, 8891754, 81577642, 14466027 ####[facility] [address] [place] [address] Chloride [Moles/Vol] 107 mmol/L Normal 101-111 [facility] Comment on above: Performed By: #### 2 348598, 31525798, 40153282, 3953435, 4688810, 83829180, 81098847 ####[facility] [address] [place] [address] CO2 [Moles/Vol] 25 mmol/L Normal 21-31 [facility] Comment on above: Performed By: #### 2 873701, 59635481, 45067969, 4019022, 3403675, 92308453, 10592585 ####[facility] [address] [place] [address] Creatinine [Mass/Vol] 1.4 mg/dL High 0.5-1.3 [facility] Comment on above: Performed By: #### 2 705909, 16180536, 73874827, 6071820, 1625482, 23121381, 06533223 ####[facility] [address] [place] [address] Glucose [Mass/Vol] 84 mg/dL Normal 55-199 [facility] Comment on above: Performed By: #### 2 516488, 23924185, 41794599, 3575042, 9849079, 14996893, 54131061 ####[facility] [address] [place] [address] Potassium [Moles/Vol] 4.8 mmol/L Normal 3.5-5.3 [facility] Comment on above: Performed By: #### 2 452923, 68179846, 05485002, 8667475, 2111213, 89051670, 50096108 ####[facility] [address] [place] [address] Sodium [Moles/Vol] 141 mmol/L Normal 135-145 [facility] Comment on above: Performed By: #### 2 469278, 03507480, 32882378, 1078631, 5150682, 32534535, 12460003 ####[facility] [address] [place] [address] Urea nitrogen [Mass/Vol] 17 mg/dL Normal 5-21 [facility] Comment on above: Performed By: #### 2 044243, 36257799, 32619344, 0443959, 4736987, 33874938, 71998393 ####[facility] [address] [place] [address] BNPon 02-10-2023 Natriuretic peptide B (Bld) [Mass/Vol] 39 pg/mL Normal 5-80 [facility] Comment on above: Performed By: #### 2 231520, 13372325, 16037016, 1866672, 4302990, 42680359, 71742329 ####[facility] [address] [place] [address] CBC w/ Auto Diffon Erythrocyte distribution width (RBC) [Ratio] 14.4 % High 10.9-14.2 [facility] Comment on above: Performed By: #### 2 792847, 34239200, 18207445, 4048925, 4550732, 72583091, 63121983 ####[facility] [address] [place] [address] Hematocrit (Bld) [Volume fraction] 50.0 % High 34.0-46.0 [facility] Comment on above: Performed By: #### 2 546586, 14597826, 93655066, 8958907, 7084785, 75617520, 25487629 ####[facility] [address] [place] [address] Hemoglobin (Bld) [Mass/Vol] 16.8 g/dL High 12.0-16.0 [facility] Comment on above: Performed By: #### 2 914540, 86582386, 11144912, 9177045, 2856202, 69449727, 52722780 ####[facility] [address] [place] [address] MCH (RBC) [Entitic mass] 30.1 pg Normal 27.0-34.0 [facility] Comment on above: Performed By: #### 2 069656, 58451914, 46880994, 5704238, 0465185, 28223661, 74541302 ####[facility] [address] [place] [address] MCHC (RBC) [Mass/Vol] 33.7 g/dL Normal 31.4-36.0 [facility] Comment on above: Performed By: #### 2 109753, 09231876, 19117831, 4743488, 6978393, 48082330, 13666606 ####[facility] [address] [place] [address] MCV (RBC) [Entitic vol] 89.4 fL Normal 80.0-100.0 [facility] Comment on above: Performed By: #### 2 133692, 97405792, 36196069, 9476982, 7693700, 24011912, 37376075 ####[address] [address] Platelet mean volume (Bld) [Entitic vol] 8.0 fL Normal 6.4-10.8 [facility] Comment on above: Performed By: #### 2 462670, 77543127, 26676326, 5289555, 1081424, 62062682, 57647973 ####[address] [address] Platelets (Bld) [#/Vol] 202.0 E9/L Normal 150.0-500. 0 [facility] Comment on above: Performed By: #### 2 735381, 62119035, 85709740, 5722270, 2130006, 45996816, 60864487 ####[address] [address] RBC (Bld) [#/Vol] 5.6 E12/L Normal 4.3-5.9 [facility] Comment on above: Performed By: #### 2 591945, 07431518, 22550922, 9899322, 7787127, 10451277, 77841858 ####[facility] [address] [place] [address] WBC corrected for nucl RBC Auto (Bld) [#/Vol] 9.4 E9/L Normal 4.0-11.0 [facility] Comment on above: Performed By: #### 2 874769, 09067334, 41949604, 6694454, 3700884, 02201847, 95170031 ####[facility] [address] [place] [address] CHEMISTRYOrdered By: SYSTEM SYSTEM on 02-10-2023 Anion [...] 39 pg/mL Normal 5 - 80 pg/mL [facility] HemeTildenSS COAGULATIONOrdered By: Veronica Guidry on 02-10-2023 aPTT Coag (PPP) [Time] 29.2 s Normal 25.1 - 36.5 second(s) [facility] Auto Coag Comment on above: Interpretive Data: [...] the same coagulation reagent and instrumentation as [facility]. Currently there are no coagulation studies available worldwide for children to 14 days, and no normal ranges. Heparin therapeutic range (represented by Anti-Factor Xa activity of 0.2 - 0.4 U/mL) corresponds to PTT of 56.6 - 109.0 sec. INR Coag (PPP) [Relative time] 1.0 {INR} Invalid Interpretation Code [facility] Auto Coag Comment on above: Interpretive Data: I NR results are specifically intended to assess patients stabilized on long-term Anticoagulation therapy suggested INR s Less Intensive Anticoagulation 2.0 3.0 Conventional Range 3.0 4.5 PT Coag (PPP) [Time] 11.6 s Normal 9.4 - 1 2.5 second(s) [facility] Auto Coag Comment on above: Interpretive Data: [...] the same coagulation reagent and instrumentation as [facility]. Currently there are no coagulation studies available worldwide for children to 14 days, and no normal ranges. Consent for Treatmenton 01-19 Consent for Treatment [id number] Normal [facility] Discharge Instructionson Discharge Instructions [id number] F Normal [facility] ED Clinical Summaryon 2022 ED Clinical Summary (Inserted Image. Neelam ble to display) [place] [id number] ED Clinical Summary Person Information Name: DEYSI HERNANDEZ Trav/[facility] Age: 62 Years : 1960 Sex: Female Language: Martiniquais PCP: SHAIKH THOMPSON MD Marital Status: Visit [...] 02/10/2023 17:12:09 02/10/2023 17:12:09 ADDRESS: [address] [id number] PHYS DOC NOTES: MEDICAL INFORMATION: Prescriptions Given: New Medications [facility]/pharmacy #[id number], [address], [place] [id number], [phone] cefdinir (cefdinir 300 mg Cap) 1 Capsules [...] Tablets By Mouth every day. Misc Prescription ([facility] ASPIRIN EC 81 MG TABLET) 0. omeprazole (omeprazole 40 mg Cap-DR) 1 Capsules By Mouth every day. Refills: 2. PATIENT EDUCATION INFORMATION: Instructions: Urinary Tract Infection, Adult, Glae-fg-Tpfy; Acute Bronchitis, Adult Follow up: With: Address: When: SHAIKH DONNA [address] [place], [place] [phone] Business (1) In 3 days 02/13/2023 Comments: Follow-up with your primary care provider in 3 to 5 days. If symptoms worsen, do not improve, or new symptoms arise please report back to emergency department for further evaluation. DIAGNOSIS: Bronchitis; UTI (urinary tract infection) Normal [facility] ED Note-Nursingon 02-10-2023 ED Note-Nursing EKG late due to vanessa ent being in the bathroom when called. Normal [facility] ED Note-Physicianon 02-11-20 ED Note-Physician Basic [...] antibiotics were not prescribed or dispensed today.[[facility] PERFORMANCE] [] The patient has acute bronchitis/bronchiolitis. [...] (N39.0: Urin (more content not included)... Normal [facility] Comment on above: Result Comment: Elec [...] these instructions at home: Medicines ? Take yowh-vdb-guyvikt and prescription medicines only as told by [...] provider. Document Revised: 09/16/2020 Document Reviewed: 09/16/2020 [employer] Patient Education ? 2022 [employer]. Pulmonary Medicine Acute Bronchitis, Adult Acute bronchitis [...] The f (more content not included)... Normal [facility] ED Patient Summaryon 023 ED Patient Summary (Inserted Image. Neelam ble to display) [place] [id number] Patient Discharge Instructions Person Information Name: DEYSI HERNANDEZ Age: 62 Years Arrival Date: 02/10/2023 14:37:39 Discharge Diagnosis: Bronchitis; UTI (urinary tract infection) Primary Care Physician: SHAIKH THOMPSON MD Provider Information Primary Provider: Gabby De Oliveira M.D. Advanced Retail Delivery Driver:None The exam and treatment you received in the Emergency Department were for an urgent problem and are not intended as complete care. It is important that you follow up with a doctor, nurse practitioner, or physician?s human resources benefits assistant for ongoing care. If your symptoms [...] With: Address: When: SHAIKH DONNA [address] [place], [place] [phone] Business (1) In 3 days 02/13/2023 Comments: [...] Patient Education Materials: Urinary Tract Infection, Adult, Adng-py-Adpe; Acute Bronchitis, Adult A MESSAGE TO ALL PATIENTS REGARDING OPIOIDS PRESCRIPTION OPIOIDS: WHAT YOU NEED TO KNOW Prescription opioids can be used to help relieve qgihrbad-xo-scrotv pain and are often prescribed following a [...] Visit www.cdc.gov/ (more content not included)... Normal [facility] Family Medicine Office/Clini c Branon 02-10-2023 Family Medicine Office/Clinic Note Chief Complaint [...] send her to the emergency department at [facility]. She was offered EMS transfer but [...] hurt by (more content not included)... Normal [facility] Comment on above: Result Comment: Elec [...] 33.7 g/dL Normal 31.4 - 36.0 gm/dL [facility] HemeAutoSS MCV (RBC) [Entitic vol] 89.4 fL Normal 80.0 - 100.0 fL [facility] HemeAutoSS Platelet mean volume (Bld) [Entitic vol] 8.0 fL Normal 6.4 - 10.8 fL [facility] HemeAutoSS Platelets (Bld) [#/Vol] 202.0 E9/L Normal 150.0 - 500.0 E9/L [facility] HemeAutoSS RBC (Bld) [#/Vol] 5.6 E12/L Normal 4.3 - 5.9 E12/L [facility] HemeAutoSS WBC corrected for nucl RBC Auto (Bld) [#/Vol] 9.4 E9/L Normal 4.0 - 11.0 E9/L [facility] HemeAutoSS Influenza A&B Agon Influenzae A Ag Negative Normal Negative [facility] Comment on above: Performed By: #### 1 [id number], [id number] ####[facility] [address] [place] [address] Influenzae B Ag Negative Normal Negative [facility] Comment on [...] days after vaccination. Performed By: #### 1 [id number], [id number] ####[facility] [address] [place] [address] MICRO OTHER TESTSOrdered By: Trudy Guidry on 02-10-2023 Influenzae A Ag Negative (02/10/23 3:25 PM) Normal Negative [facility] Man Sero Influenzae B Ag Negative 1 (02/10/23 3:25 PM) Normal Negative [facility] Man Sero Comment on above: Interpretive Data: [...] NEG Ctl Pass (02/10/23 3:25 PM) Normal FT Man Sero Rapid COV Int POS Ctl Pass (02/10/23 3:25 PM) Normal FT Man Sero SARS-CoV+SARS-CoV-2 (COVID-19) Ag IA.rapid Ql (Resp) Not Detected 6 (02/10/23 3:25 PM) Normal Not Detected FT Man [facility] Comment on above: Interpretive Data: Suma young Likva Veritor System for Rapid Detection of SARS-CoV-2 [...] Coag (PPP) [Time] 29.2 second(s) Normal 25.1-36.5 [facility] Comment on above: Result Comment: Para [...] the same coagulation reagent and instrumentation as [facility]. Currently there are no coagulation studies available worldwide for children to 14 days, and no normal ranges. Heparin therapeutic range (represented by Anti-Factor Xa activity of 0.2 - 0.4 U/mL) corresponds to PTT of 56.6 - 109.0 sec. Performed By: #### 2 699413, 95697520, 44614852, 4414228, 1626900, 78573821, 73171322 ####[facility] [address] [place] [address] INR Coag (PPP) [Relative time] 1.0 {INR} Invalid Interpretation Code [facility] Comment on above: Result Comment: INR results are specifically intended to assess patients stabilized on long-term Anticoagulation therapy suggested INR?s ?Less Intensive Anticoagulation? 2.0 ? 3.0 Conventional Range 3.0 ? 4.5 Performed By: #### 2 674950, 85768204, 90976870, 6186297, 2897315, 67520339, 60225280 ####[facility] [address] [place] [address] PT Coag (PPP) [Time] 11.6 second(s) Normal 9.4-12.5 [facility] Comment on above: Result Comment: 15 [...] the same coagulation reagent and instrumentation as [facility]. Currently there are no coagulation studies available worldwide for children to 14 days, and no normal ranges. Performed By: #### 2 349188, 30696019, 17419467, 5667241, 0628030, 07213120, 24365852 ####[facility] [address] [place] [address] Rapid COVID Antigen ([facility])on 02-10-2023 Rapid COV Int NEG Ctl Pass Normal [facility] Comment on above: Performed By: #### 1 [id number], [id number] ####[facility] [address] [place] [address] Rapid COV Int POS Ctl Pass Normal [facility] Comment on above: Performed By: #### 1 [id number], [id number] ####[place] [address] [place] [address] SARS-CoV+SARS-CoV-2 (COVID-19) Ag IA.rapid Ql (Resp) Not detected Normal Not Detected [facility] Comment on above: Result Comment: The Likva Veritor? System for Rapid Detection of SARS-CoV-2 [...] or revoked sooner. Performed By: #### 1 [id number], [id number] ####[place] [address] [place] [address] Troponin 0 Hr.on 02-10-2023 Troponin 5.80 pg/mL Low 10.10-27.1 0 [facility] Comment on above: Result Comment: The 95% CI (Confidence Interval) PPV (Positive Predictive Value) for myocardial infarction in females is 38 pg/mL, in males 51 pg/mL. The results should be used in conjunction with clinical conditions of myocardial infarction. (Access High Sensitivity Troponin I Instructions For Use, Kavita Ton, September 2017) Performed By: #### 2 604421, 75623000, 62151457, 9455761, 4436201, 81534712, 07358176 ####[facility] [address] [place] [address] XR Chest Single Viewon 02-10 XR Chest [...] mGy = na DAP = na Normal [facility] eGFRon 02-10-2023 eGFR 43 mL/min/1.73 m2 Low >=59 [facility] Comment on above: Order Comment: Order added by Discern Expert. Performed By: #### 2 802840, 79924990, 98770216, 9578435, 1603697, 82053911, 62606705 ####[facility] [address] [place] [address] [facility] 10-26-2022 [facility] Telephone (MICHAEL) ----- DEYSI HERNANDEZ ([id number]) 1960 F Date Time Provider Department [facility] During your visit today, we [...] question. I will also send her a Percolate message encouraging communicate via Percolate if needed. Debra Fishman MD Staff, Department of Kidney Medicine 10/26/22 5:49 PM Allergies As of Date: 10/26/2022 Noted Allergy Reaction CODEINE 09/07/2014 7 - Swelling Date Reviewed: 10/09/2022 Reviewed by: Rosie Harris DO - Fully Assessed Reason for Visit: Patient Question [6177] Prescriptions as of 10/26/2022 - lisinopril (ZESTRIL) [...] Encounter Status:Closed by DEBRA FISHMAN on 10/26/22 [facility] Lizbet 10-25-2022 CNPN Telephone (AARON) ----- DEYSI HERNANDEZ ([id number]) 1960 F Date Time Provider Department 10/25/22 DEBRA FISHMAN During your visit today, we recorded the following information about you: Linn Solis Ma 10/25/2022 12:36 PM Signed Patient called the office very upset because today at here appointment with Kidney Medicine she was seen by another provider and it wasn't her kidney doctor. She would like Dr. Fishman call her back at [phone] because she has lots of questions that [...] Fully Assessed Reason for Visit: Patient Question [6757] Prescriptions as of 10/25/2022 - lisinopril (ZESTRIL) [...] Status:Closed by LINN SOLIS MA on 10/25/22 [facility] Lizbet 10-11-2022 NATALIIA Telephone (WIQ) ----- DEYSI HERNANDEZ ([id number]) 1960 F Date Time Provider Department 10/11/22 CATHIE MOORE During your visit today, we recorded the following information about you: Cathie Moore, [facility] ED 10/11/2022 12:57 PM Signed Smoking Cessation Navigation Outcome of contact: Left Message Comments: A voicemail has been left for this patient regarding Tobacco Cessation support options. If this patient has any further questions they can email us at or call us at [phone]. [employer] Infant Lead Teacher/Smoking Cessation Navigator: [facility] Allergies As of Date: 10/11/2022 Noted [...] Status:Closed by CATHIE MOORE on 10/11/22 Normal [facility] CNOVon 10-09-2022 CNOV Office Visit (CALIMMHussein ) ----- DEYSI HERNANDEZ ([id number]) 1960 F Date Time Provider Department 10/09/22 2:00 PM GURMEET OJEDA During your visit today, we recorded the following information about you: Temperature Pulse Blood pressure Weight 97.5 degrees 60/minute 91/60 71.3 kg Height 1.575 m Rosie Harris DO 10/09/2022 5:08 PM Signed [facility] SERVICE DATE: [...] on metoprol (more content not included)... Normal [facility] URINALYSIS, REFLEX MICROSCOP ICon 10-09-2022 Bacteria LM.HPF (Urine sed) [#/Area] Few Abnormal None Seen [facility] Comment on above: Order Comment: Speci men Type: URINE SPECIMEN Ordering Facility: [facility] Address: [address] [address] Performed By: #### L [id number] #### [facility] CLIA [id number] [address] [place] [address] [place] Bilirubin Ql (U) Negative Normal Negative [facility] Comment on above: Order Comment: Speci men Type: URINE SPECIMEN Ordering Facility: [facility] Address: [address] [address] Performed By: #### L [id number] #### [facility] CLIA [id number] [facility] [place] [address] [place] Clarity (Unsp spec) Cloudy Abnormal Clear [facility] Comment on above: Order Comment: Speci men Type: URINE SPECIMEN Ordering Facility: [facility] Address: [address] [place] [address] Performed By: #### L [id number] #### [facility] CLIA [id number] [address] [place] [address] [place] Color (U) Light Yellow Normal Yellow [facility] Comment on above: Order Comment: Speci men Type: URINE SPECIMEN Ordering Facility: [facility] Address: [address] [place] [address] Performed By: #### L [id number] #### [facility] CLIA [id number] [address] [place] [address] [place] Epithelial cells LM.HPF (Urine sed) [#/Area] Few Normal [facility] Comment on above: Order Comment: Speci men Type: URINE SPECIMEN Ordering Facility: [facility] Address: [address] [place] [address] Performed By: #### L [id number] #### [facility] CLIA [id number] [address] [place] [address] [place] Glucose Test strip (U) [Mass/Vol] Negative Normal Trace, Negative [facility] Comment on above: Order Comment: Speci men Type: URINE SPECIMEN Ordering Facility: [facility] Address: [address] [place] [address] Performed By: #### L [id number] #### [facility] CLIA [id number] [address] [place] [id number] [place] Hemoglobin Ql (U) Trace Normal Negative, Trace [facility] Comment on above: Order Comment: Speci men Type: URINE SPECIMEN Ordering Facility: [facility] Address: [address] [place] [address] Performed By: #### L [id number] #### [facility] CLIA [id number] [address] [place] [address] [place] Ketones Ql (U) Negative Normal Negative, Trace [facility] Comment on above: Order Comment: Speci men Type: URINE SPECIMEN Ordering Facility: [facility] Address: [address] [place] [address] Performed By: #### L [id number] #### [facility] CLIA [id number] [address] [place] [address] [place] Leukocyte esterase Test strip Ql (U) 250 Bonnie/uL Abnormal Negative, 25 Bonnie/uL [facility] Comment on above: Order Comment: Speci men Type: URINE SPECIMEN Ordering Facility: [facility] Address: [address] [place] [address] Performed By: #### L [id number] #### [facility] CLIA [id number] [address] [place] [address] [place] Nitrite Ql (U) 2+ Abnormal Negative [facility] Comment on above: Order Comment: Speci men Type: URINE SPECIMEN Ordering Facility: [facility] Address: [address] [place], [place] [address] Performed By: #### L [id number] #### [facility] CLIA [id number] [address] [place] [address] [place] pH (U) 5.5 [pH] Normal 5.0-8.0 [facility] Comment on above: Order Comment: Speci men Type: URINE SPECIMEN Ordering Facility: [facility] Address: [address] [place], [place] [address] Performed By: #### L [id number] #### [facility] CLIA [id number] [address] [place] [address] [place] Protein (U) [Mass/Vol] Negative Normal Trace , Negative [facility] Comment on above: Order Comment: Speci men Type: URINE SPECIMEN Ordering Facility: [facility] Address: [address] [place], [place] [address] Performed By: #### L [id number] #### [facility] CLIA [id number] [address] [place] [address] [place] RBC LM.HPF (Urine sed) [#/Area] 0-3 /HPF Normal 0-3 /HPF [facility] Comment on above: Order Comment: Speci men Type: URINE SPECIMEN Ordering Facility: [facility] Address: [address] [place], [place] [address] Performed By: #### L [id number] #### [facility] CLIA [id number] [address] [place] [address] [place] Specific gravity (U) [Rel density] 1.015 Normal 1.005-1.03 0 [facility] Comment on above: Order Comment: Speci men Type: URINE SPECIMEN Ordering Facility: [facility] Address: [address] [place] [address] Performed By: #### L [id number] #### [facility] CLIA [id number] [address] [place] [address] [place] Urobilinogen Ql (U) Negative Normal Negative [facility] Comment on above: Order Comment: Speci men Type: URINE SPECIMEN Ordering Facility: [facility] Address: [address] [place] [address] Performed By: #### L [id number] #### [facility] CLIA [id number] [address] [place] [address] [place] WBC LM.HPF (Urine sed) [#/Area] /[HPF] Abnormal 0-5 /HPF [facility] Comment on above: Order Comment: Speci men Type: URINE SPECIMEN Ordering Facility: [facility] Address: [address] [place], [place] [address] Performed By: #### L [id number] #### [facility] CLIA [id number] [address] [place] [address] [place] Bacteria LM.HPF (Urine sed) [#/Area] Few Abnormal None Seen /HPF [facility] Bilirubin Ql (U) Negative Negative [facility] Clarity (Unsp spec) Cloudy Abnormal Clear [facility] Color (U) Light Yellow Yellow [facility] Epithelial cells LM.HPF (Urine sed) [#/Area] Few [facility] Glucose Test strip (U) [Mass/Vol] Negative Trace, Negative [facility] Hemoglobin Ql (U) Trace Negative, Trace [facility] Ketones Ql (U) Negative Negative, Trace [facility] Leukocyte esterase Test strip Ql (U) 250 Bonnie/uL Abnormal Negative, 25 Bonnie/uL [facility] Nitrite Ql (U) 2+ Abnormal Negative [facility] pH (U) 5.5 [pH] 5.0 - 8.0 [facility] Protein (U) [Mass/Vol] Negative Trace , Negative [facility] RBC LM.HPF (Urine sed) [#/Area] 0-3 /HPF 0-3 /HPF [facility] Specific gravity (U) [Rel density] 1.015 1.005 - 1.030 [facility] Urobilinogen Ql (U) Negative Negative [facility] WBC LM.HPF (Urine sed) [#/Area] /[HPF] Abnormal 0-5 /HPF [facility] 25(OH)D3 [facility] 2022 25-hydroxyvitamin D3 [Mass/Vol] 34.5 ng/mL Normal 31.0-80.0 [facility] Comment on above: Order Comment: Speci men Type: BLOOD SPECIMEN [facility] [facility] Address: [address] [place], [place] [id number] Result Comment: Clas sification of 25 [place] Vitamin D status: Deficiency/Insufficiency: < or = 30 ng/ml. Sufficiency/Optimal Levels: 31-80 ng/mL Toxicity: > 100 ng/mL. Test performed by chemiluminescent immunoassay. Performed By: #### 1 989-3 #### [facility] CLIA [id number] [address] [facility] [place] [address] [place] IMMUNOFIXATION SCREEN, SERUM on 08-23-2022 MPA RESULT No M protein is identified. Normal No M protein is identified . [facility] Comment on above: Order Comment: Speci men Type: BLOOD SPECIMEN Ordering Facility: [facility] Address: [address] Performed By: #### I FESC #### [facility] CLIA [id number] [address] [place] [address] STAFF REVIEW (MPA) Reviewed by Cortes Alfredo MD, Ph.D ([id number]) [facility] Comment on above: Order Comment: Speci men Type: BLOOD SPECIMEN Ordering Facility: [facility] Address: [address] Performed By: #### I FES #### [facility] CLIA [id number] [address] [place] [address] [place] IMMUNOGLOBULINS GAMon 2022 IgA [Mass/Vol] 218 mg/dL Normal 70-400 [facility] Comment on above: Order Comment: Speci men Type: BLOOD SPECIMEN Ordering Facility: [facility] Address: [address] Performed By: #### S ERIMM #### [facility] CLIA [id number] [address] [place] [address] [place] IgG [Mass/Vol] 775 mg/dL Normal 700-1600 [facility] Comment on above: Order Comment: Speci men Type: BLOOD SPECIMEN Ordering Facility: [facility] Address: [address] Performed By: #### S ERIMM #### [facility] CLIA [id number] [address] [place] [address] [place] IgM [Mass/Vol] 129 mg/dL Normal 40-230 [facility] Comment on above: Order Comment: Speci men Type: BLOOD SPECIMEN Ordering Facility: [facility] Address: [address] Performed By: #### S ERIMM #### [facility] CLIA [id number] [address] [place] KAPPA/THAO,FREE,SERon 2022 Immunoglobulin light chains.kappa.free (S) [Mass/Vol] 26.1 mg/L High 3.3-19.4 [facility] Comment on above: Order Comment: Carmen juarez Type: BLOOD SPECIMEN Ordering Facility: [facility] Address: [address] [place] [address] Result Comment: Rare ly, increased serum free light chains levels may not be detected or accurately quantified due to prozone phenomenon or in high viscosity samples using this immunoturbidimetric assay. Correlation with other laboratory results and clinical findings is recommended. The [place] Free Light Chain was performed using the Binding Site Optilite immunoturbidimetric method. Result obtained with different assay methods or kits cannot be used interchangeably. Performed By: #### K LFRS #### [facility] CLIA [id number] [address] [place] [address] OF TRAV Immunoglobulin light chains.kappa/Immunoglo bulin light chains.lambda (S) [Mass ratio] 1.01 Normal 0.26-1.65 [facility] Comment on above: Order Comment: Carmen larry Type: BLOOD SPECIMEN Ordering Facility: [facility] Address: [address] [place] [address] Performed By: #### K LFRS #### [facility] CLIA [id number] [address] [place] [address] [facility] OF TRAV Immunoglobulin light chains.lambda.free [Mass/Vol] 25.9 mg/L Normal 5.7-26.3 [facility] Comment on above: Order Comment: Carmen larry Type: BLOOD SPECIMEN Ordering Facility: [facility] Address: [address] [place] [address] Result Comment: Rare ly, increased serum free [...] interchangeably. Performed By: #### K LFRS #### [facility] CLIA [id number] [address] [facility] [place] [address] [place] Renal function 2000 panelon 08-23-2022 Albumin [Mass/Vol] 4.3 g/dL Normal 3.9-4.9 [facility] Comment on above: Order Comment: Speci men Type: BLOOD SPECIMEN Ordering Facility: [facility] Address: [address] [address] Performed By: #### 2 4362-6 #### [facility] CLIA [id number] [address] [id number] [place] Anion gap [Moles/Vol] 9 mmol/L Normal 9-18 [facility] Comment on above: Order Comment: Speci men Type: BLOOD SPECIMEN Ordering Facility: [facility] Address: [address] [address] Performed By: #### 2 4362-6 #### [facility] IA [id number] [address] [place] [address] [place] Calcium [Mass/Vol] 9.9 mg/dL Normal 8.5-10.2 [facility] Comment on above: Order Comment: Speci men Type: BLOOD SPECIMEN Ordering Facility: [facility] Address: [address] [address] Performed By: #### 2 4362-6 #### [facility] CLIA [id number] [address] [place] [address] [place] Chloride [Moles/Vol] 105 mmol/L Normal 97-105 [facility] Comment on above: Order Comment: Speci men Type: BLOOD SPECIMEN Ordering Facility: [facility] Address: [address] [address] Performed By: #### 2 4362-6 #### [facility] IA [id number] [address] [place] [address] [place] CO2 [Moles/Vol] 25 mmol/L Normal 22-30 [facility] Comment on above: Order Comment: Carmen larry Type: BLOOD SPECIMEN Ordering Facility: [facility] Address: [address] [address] Performed By: #### 2 4362-6 #### [facility] CLIA [id number] [address] [place] [address] [facility] [place] Creatinine [Mass/Vol] 1.42 mg/dL High 0.58-0.96 [facility] Comment on above: Order Comment: Carmen [facility] Type: BLOOD SPECIMEN Ordering Facility: [facility] Address: [address] [address] Performed By: #### 2 4362-6 #### [facility] CLIA [id number] [address] [place], [place] [id number] [place] [address] [place] ESTIMATED GLOMERULAR FILTRATION RATE 42 mL/min/1.73m??? Low >=60 [facility] Comment on above: Order Comment: Carmen [facility] Type: BLOOD SPECIMEN Ordering Facility: [facility] Address: [address] [address] Result Comment: Jody mated Glomerular Filtration Rate [...] GFR. Performed By: #### 2 4362-6 #### [facility] CLIA [id number] [address] [place] Glucose [Mass/Vol] 70 mg/dL Low 74-[address] [facility] Comment on above: Order Comment: Carmen [facility] Type: BLOOD SPECIMEN Ordering Facility: [facility] Address: [address] [address] Result Comment: The [place] Diabetes [employer] (ADA) provides guidance for cutoff [...] Standards of Medical Care in Diabetes 2016, [place] [employer]. Diabetes Care. 2016.39(Suppl 1). Performed By: #### 2 4362-6 #### [facility] IA [id number] [address] [place] [address] [place] Phosphate [Mass/Vol] 2.5 mg/dL Low 2.7-4.8 [facility] Comment on above: Order Comment: Marioi larry Type: BLOOD SPECIMEN Ordering Facility: [facility] Address: [address] [place] [address] Performed By: #### 2 4362-6 #### [facility] IA [id number] [place] [address] [place] Potassium [Moles/Vol] 4.8 mmol/L Normal 3.7-5.1 [facility] Comment on above: Order Comment: Marioi larry Type: BLOOD SPECIMEN Ordering Facility: [facility] Address: [address] [place] [address] Performed By: #### 2 4362-6 #### [facility] IA [id number] [place] [address] [place] Sodium [Moles/Vol] 139 mmol/L Normal 136-144 [facility] Comment on above: Order Comment: Speci men Type: BLOOD SPECIMEN Ordering Facility: [facility] Address: [address] [place] [address] Performed By: #### 2 4362-6 #### [facility] IA [id number] [place] [address] [place] Urea nitrogen [Mass/Vol] 18 mg/dL Normal 7-21 [facility] Comment on above: Order Comment: Speci men Type: BLOOD SPECIMEN Ordering Facility: [facility] Address: [address] [place] [address] Performed By: #### 2 4362-6 #### [facility] CLIA [id number] [address] [facility] [place] [address] [place] [facility] US KIDNEY/BLADDERon 08-24-19 23 US KIDNEY/BLADDER * * *Final Report* * * DATE OF EXAM: Aug 23 2022 2:15PM [facility] 1055 - US KIDNEY/BLADDER / PROCEDURE REASON: Stage 3b chronic [...] residual bladder volume 4. 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 Transcribe Date/Time: Aug 28 2022 8:25A Dictated by : ALEAH QUINN MD This examination was interpreted and the report reviewed and electronically signed by: ALEAH QUINN MD on Aug 28 2022 8:28AM EST [id number] Normal [facility] CNOVon 08-09-2022 CNOV Office Visit (KIDMMN ) ----- DEYSI HERNANDEZ ([id number]) 1960 F Date Time Provider Department 08/09/22 3:00 PM GURMEET OJEDA ELPIDIO During your visit today, we recorded the following information about you: Temperature Pulse Blood pressure Weight 97.7 degrees 65/minute 98/64 72.5 kg Height 1.575 m Debra Fishman MD 08/09/2022 7:02 PM Signed [facility] HYPERTENSION [facility] SERVICE DATE: [...] Normal mo (more content not included)... Normal [facility] URINALYSIS, REFLEX MICROSCOP ICon 08-09-2022 Bilirubin Ql (U) Negative Normal Negative [facility] Comment on above: Order Comment: Speci men Type: URINE SPECIMEN Ordering Facility: [facility] Address: [address] [address] Performed By: #### L [id number] #### [facility] CLIA [id number] [address] [place] [address] [place] Clarity (Unsp spec) Clear Normal Clear [facility] Comment on above: Order Comment: Speci men Type: URINE SPECIMEN Ordering Facility: [facility] Address: [address] [address] Performed By: #### L [id number] #### [facility] CLIA [id number] [address] [place] [address] [place] Color (U) Light Yellow Normal Yellow [facility] Comment on above: Order Comment: Speci men Type: URINE SPECIMEN Ordering Facility: [facility] Address: [address] [address] Performed By: #### L [id number] #### [facility] CLIA [id number] [address] [place] Glucose Test strip (U) [Mass/Vol] Negative Normal Trace, Negative [facility] Comment on above: Order Comment: Speci men Type: URINE SPECIMEN Ordering Facility: [facility] Address: [address] [address] Performed By: #### L [id number] #### [facility] CLIA [id number] [address] [place] [address] [place] Hemoglobin Ql (U) Negative Normal Negative, Trace [facility] Comment on above: Order Comment: Speci men Type: URINE SPECIMEN Ordering Facility: [facility] Address: [address] Performed By: #### L [id number] #### [facility] CLIA [id number] [address] [place] Ketones Ql (U) Negative Normal Negative, Trace [facility] Comment on above: Order Comment: Speci men Type: URINE SPECIMEN Ordering Facility: [facility] Address: [address] Performed By: #### L [id number] #### [facility] CLIA [id number] [address] [place] Leukocyte esterase Test strip Ql (U) 75 Bonnie/uL Abnormal Negative, 25 Bonnie/uL [facility] Comment on above: Order Comment: Speci men Type: URINE SPECIMEN Ordering Facility: [facility] Address: [address] [place] [address] Performed By: #### L [id number] #### [facility] CLIA [id number] [address] [place] [address] [place] Nitrite Ql (U) Negative Normal Negative [facility] Comment on above: Order Comment: Speci men Type: URINE SPECIMEN Ordering Facility: [facility] Address: [address] Performed By: #### L [id number] #### [facility] CLIA [id number] [address] [place] [address] [place] pH (U) 6.0 [pH] Normal 5.0-8.0 [facility] Comment on above: Order Comment: Speci men Type: URINE SPECIMEN Ordering Facility: [facility] Address: [address] [place] [address] Performed By: #### L [id number] #### [facility] CLIA [id number] [address] [place] [address] [place] Protein (U) [Mass/Vol] Negative Normal Trace , Negative [facility] Comment on above: Order Comment: Speci men Type: URINE SPECIMEN Ordering Facility: [facility] Address: [address] [place] [address] Performed By: #### L [id number] #### [facility] CLIA [id number] [address] [place] [address] [place] Specific gravity (U) [Rel density] 1.009 Normal 1.005-1.03 0 [facility] Comment on above: Order Comment: Speci men Type: URINE SPECIMEN Ordering Facility: [facility] Address: [address] [place] [address] Performed By: #### L [id number] #### [facility] CLIA [id number] [address] [place] [address] [place] Urobilinogen Ql (U) Negative Normal Negative [facility] Comment on above: Order Comment: Speci men Type: URINE SPECIMEN Ordering Facility: [facility] Address: [address] [place] [address] Performed By: #### L [id number] #### [facility] CLIA [id number] [address] [place] [address] [place] Bilirubin Ql (U) Negative Negative [facility] Clarity (Unsp spec) Clear Clear [facility] Color (U) Light Yellow Yellow [facility] Glucose Test strip (U) [Mass/Vol] Negative Trace, Negative [facility] Hemoglobin Ql (U) Negative Negative, Trace [facility] Ketones Ql (U) Negative Negative, Trace [facility] Leukocyte esterase Test strip Ql (U) 75 Bonnie/uL Abnormal Negative, 25 Bonnie/uL [facility] Nitrite Ql (U) Negative Negative [facility] pH (U) 6.0 [pH] 5.0 - 8.0 [facility] Protein (U) [Mass/Vol] Negative Trace , Negative [facility] Specific gravity (U) [Rel density] 1.009 1.005 - 1.030 [facility] Urobilinogen Ql (U) Negative Negative [facility] LIPID PROFILEon 06-12-2022 CHOL-HDL RATIO NORM SEE BELOW Normal [facility] Comment on above: Result Comment: 3.3 - 4.4 LOW RISK 4.4 - 7.1 AVERAGE RISK 7.1 - 11.0 MODERATE RISK >11.0 HIGH RISK Performed By: #### L IPID, BMP #### [facility] [address] [place] [address] Dr. Moreno Amato Cholesterol [Mass/Vol] 178 mg/dL Normal <=200 [facility] Comment on above: Performed By: #### L IPID, BMP #### [facility] [address] [place] [address] Dr. Moreno Amato Cholesterol in HDL [Mass/Vol] 39 mg/dL Critically low 40-60 [facility] Comment on above: Performed By: #### L IPID, BMP #### [facility] [address] [address] [address] Moreno Amato Cholesterol in LDL [Mass/Vol] 92.0 mg/dL Normal [facility] Comment on above: Performed By: #### L IPID, BMP #### [facility] [address] [address] [address] Moreno Amato Cholesterol.total/Chol esterol in HDL [Mass ratio] 4.6 {ratio} Normal [facility] Comment on above: Performed By: #### L IPID, BMP #### [facility] [address] [address] [address] Moreno Amato HDL NORMAL > or = 60 mg/dl - LO W CARDIOVASCULAR RISK <40 mg/dl - HIGH CARDIOVASCULAR RISK Normal [facility] Comment on above: Performed By: #### L IPID, BMP #### [facility] [address] [address] [address] Moreno Amato LDL CALC NORMAL SEE BELOW Normal [facility] Comment on above: Result Comment: <100 mg/dl OPTIMAL 100 - 129 mg/dl NEAR OR ABOVE OPTIMAL 130 - 159 mg/dl BORDERLINE HIGH 160 - 189 mg/dl HIGH >190 mg/dl VERY HIGH Performed By: #### L IPID, BMP #### [facility] [address] [address] [address] Moreno Amato Triglyceride [Mass/Vol] 235 mg/dL Critically high <=150 [facility] Comment on above: Performed By: #### L IPID, BMP #### [facility] [address] [address] [address] Moreno Amato VLDL CALC 47.0 mg/dL Normal [facility] Comment on above: Performed By: #### L IPID, BMP #### [facility] [address] [address] [address] Moreno Amato PROF CHEM 8 (BAS METB)on Anion gap [Moles/Vol] 10.7 mmol/L Normal [facility] Comment on above: Performed By: #### L IPID, BMP #### [facility] [address] [address] [address] Moreno Amato Calcium [Mass/Vol] 9.6 mg/dL Normal 8.5-10.1 [facility] Comment on above: Performed By: #### L IPID, BMP #### [facility] [address] [place] [address] Dr. Moreno Amato Chloride [Moles/Vol] 104 mmol/L Normal 98-107 [facility] Comment on above: Performed By: #### L IPID, BMP #### [facility] [address] [address] [address] Moreno Amato CO2 [Moles/Vol] 31.6 mmol/L Normal 21.0-32.0 [facility] Comment on above: Performed By: #### L IPID, BMP #### [facility] [address] [place] [address] Dr. Moreno Amato Creatinine [Mass/Vol] 1.58 mg/dL Critically high 0.55-1.02 [facility] Comment on above: Performed By: #### L IPID, BMP #### [facility] [address] [place] [address] Dr. Moreno Amato EGFR-AF STATELESS 40 mL/min/1.73m2 Critically low >=60 [facility] Comment on above: Performed By: #### L IPID, BMP #### [facility] [address] [place] [address] Dr. Moreno Amato EGFR-NON AF STATELESS 33 mL/min/1.73m2 Critically low >=60 [facility] Comment on above: Performed By: #### L IPID, BMP #### [facility] [address] [place] [address] Dr. Moreno Amato Glucose [Mass/Vol] 79 mg/dL Normal 74-106 [facility] Comment on above: Performed By: #### L IPID, BMP #### [facility] [address] [place] [address] Dr. Moreno Amato Potassium [Moles/Vol] 4.3 mmol/L Normal 3.5-5.1 [facility] Comment on above: Performed By: #### L IPID, BMP #### [facility] [address] [place] [address] Dr. Moreno Amato Sodium [Moles/Vol] 142 mmol/L Normal 136-145 [facility] Comment on above: Performed By: #### L IPID, BMP #### [facility] [address] [place] [address] Dr. Moreno Amato Urea nitrogen [Mass/Vol] 21.0 mg/dL Critically high 7.0-18.0 [facility] Comment on above: Performed By: #### L IPID, BMP #### [facility] [address] [place] [address] Dr. Moreno Amato Urea nitrogen/Creatinine [Mass ratio] 13.3 mg/mg Normal [facility] Comment on above: Performed By: #### L IPID, BMP #### [facility] [address] [place] [address] Dr. Moreno Amato URINE T PROTEIN CREAT RATIOo n 06-12-2022 Protein (U) [Mass/Vol] 8.8 mg/dL Normal <=12.0 [facility] Comment on above: Performed By: #### A MY, CMP, LIPA #### [facility] [address] [place] [address] Dr. Moreno Amato UR PROT CREAT RAT 0.12 Normal [facility] Comment on above: Performed By: #### A MY, CMP, LIPA #### [facility] [address] [place] [address] Dr. Moreno Amato URINE CREAT 70.82 mg/dL Normal 20.00-300. 00 [facility] Comment on above: Performed By: #### A MY, CMP, LIPA #### [facility] [address] [place] [address] Dr. Moreno Amato HEMOGLOBINon 04-30-2022 Hemoglobin (Bld) [Mass/Vol] 15.3 g/dL Normal 12.0-16.0 [facility] Comment on above: Performed By: #### A MY, CMP, LIPA #### [facility] [address] [place] [address] Dr. Moreno Amato LIPID PROFILEon 03-27-2022 CHOL-HDL RATIO NORM SEE BELOW Normal [facility] Comment on above: Result Comment: 3.3 - 4.4 LOW RISK 4.4 - 7.1 AVERAGE RISK 7.1 - 11.0 MODERATE RISK >11.0 HIGH RISK Performed By: #### A MY, CMP, LIPA #### [facility] [address] [place] [address] Dr. Moreno Amato Cholesterol [Mass/Vol] 217 mg/dL Critically high <=200 [facility] Comment on above: Performed By: #### A MY, CMP, LIPA #### [facility] [address] [address] [address] Moreno Amato Cholesterol in HDL [Mass/Vol] 42 mg/dL Normal 40-60 [facility] Comment on above: Performed By: #### A MY, CMP, LIPA #### [facility] [address] [address] [address] Moreno Amato Cholesterol in LDL [Mass/Vol] 121.6 mg/dL Normal [facility] Comment on above: Performed By: #### A MY, CMP, LIPA #### [facility] [address] [address] [address] Moreno Amato Cholesterol.total/Chol esterol in HDL [Mass ratio] 5.2 {ratio} Normal [facility] Comment on above: Performed By: #### A MY, CMP, LIPA #### [facility] [address] [address] [address] Moreno Amato HDL NORMAL > or = 60 mg/dl - LO W CARDIOVASCULAR RISK <40 mg/dl - HIGH CARDIOVASCULAR RISK Normal [facility] Comment on above: Performed By: #### A MY, CMP, LIPA #### [facility] [address] [address] [address] Moreno Amato LDL CALC NORMAL SEE BELOW Normal [facility] Comment on above: Result Comment: <100 mg/dl OPTIMAL 100 - 129 mg/dl NEAR OR ABOVE OPTIMAL 130 - 159 mg/dl BORDERLINE HIGH 160 - 189 mg/dl HIGH >190 mg/dl VERY HIGH Performed By: #### A MY, CMP, LIPA #### [facility] [address] [address] [address] Moreno Amato Triglyceride [Mass/Vol] 267 mg/dL Critically high <=150 [facility] Comment on above: Performed By: #### A MY, CMP, LIPA #### [facility] [address] [address] [address] Moreno Amato VLDL CALC 53.4 mg/dL Normal [facility] Comment on above: Performed By: #### A MY, CMP, LIPA #### [facility] [address] [place] [address] Dr. Moreno Amato PROF CHEM 8 (BAS METB)on Anion gap [Moles/Vol] 11.1 mmol/L Normal Th [facility] Comment on above: Performed By: #### A MY, CMP, LIPA #### [facility] [address] [place] [address] [address] Moreno Amato Calcium [Mass/Vol] 9.2 mg/dL Normal 8.5-10.1 [facility] Comment on above: Performed By: #### A MY, CMP, LIPA #### [facility] [address] [place] [address] [address] Moreno Amato Chloride [Moles/Vol] 104 mmol/L Normal 98-107 [facility] Comment on above: Performed By: #### A MY, CMP, LIPA #### [facility] [address] [place] [address] Dr. Moreno Amato CO2 [Moles/Vol] 27.4 mmol/L Normal 21.0-32.0 [facility] Comment on above: Performed By: #### A MY, CMP, LIPA #### [facility] [address] [place] [address] [address] Moreno Amato Creatinine [Mass/Vol] 1.30 mg/dL Critically high 0.55-1.02 [facility] Comment on above: Performed By: #### A MY, CMP, LIPA #### [facility] [address] [place] [address] [address] Moreno Amato EGFR-AF STATELESS 51 mL/min/1.73m2 Critically low >=60 [facility] Comment on above: Performed By: #### A MY, CMP, LIPA #### [facility] [address] [place] [address] [address] Moreno Amato EGFR-NON AF STATELESS 42 mL/min/1.73m2 Critically low >=60 [facility] Comment on above: Performed By: #### A MY, CMP, LIPA #### [facility] [address] [place] [address] [address] Moreno Amato Glucose [Mass/Vol] 102 mg/dL Normal 74-106 [facility] Comment on above: Performed By: #### A MY, CMP, LIPA #### [facility] [address] [place] [address] Dr. Moreno Amato Potassium [Moles/Vol] 4.5 mmol/L Normal 3.5-5.1 [facility] Comment on above: Performed By: #### A MY, CMP, LIPA #### [facility] [address] [place] [address] Dr. Moerno Amato Sodium [Moles/Vol] 138 mmol/L Normal 136-145 [facility] Comment on above: Performed By: #### A MY CMP, LIPA #### [facility] [address] [place] [address] Dr. Moreno Amato Urea nitrogen [Mass/Vol] 23.0 mg/dL Critically high 7.0-18.0 [facility] Comment on above: Performed By: #### A MY, CMP, LIPA #### [facility] [address] [place] [address] Dr. Moreno Amato Urea nitrogen/Creatinine [Mass ratio] 17.7 mg/mg Normal [facility] Comment on above: Performed By: #### A MY, CMP, LIPA #### [facility] [address] [place] [address] Dr. Moreno Johnson 03-27-2022 AST [Catalytic activity/Vol] 24 U/L Normal 15-37 [facility] Comment on above: Performed By: #### A MY, CMP, LIPA #### [facility] [address] [place] [address] Dr. Moreno Amato SGPTon 03-27-2022 ALT [Catalytic activity/Vol] 20 U/L Normal 14-59 [facility] Comment on above: Performed By: #### A MY, CMP, LIPA #### [facility] [address] [place] [address] Dr. Moreno Amato COVID/FLU RT-PCRon 3 SARS-CoV-2 (COVID-19) RNA ELISA+probe Ql (Unsp spec) Negative [facility] Other COVID/FLU RT-PCR Negative [facility] [employer] Other Quick Strepon 03-19-2022 S. pyogenes Org specific cx Ql (Throat) Negative [facility] [employer] Other Quick Strep [facility] Other Tobacco Screening.on 023 Adult depression screening assessment No [facility] [address] DO Work Phone: Fall risk assessment c) Not medically indicated [facility] DO Work Phone: Tobacco use status CPHS b) No [facility] 250 DO Work Phone: PAP ACOG PANEL 2: 30 to 65on 03-02-2022 . . Normal [facility] Comment on above: Result Comment: Perf ormed at: WB Performed By: #### A MY, CMP, LIPA #### [facility] [address] [place] [address] [address] Moreno Amato Age Gdln ACOG Testing 30-65 Normal [facility] Comment on above: Performed By: #### A MY, CMP, LIPA #### [facility] [address] [place] [address] [address] Moreno Amato DIAGNOSIS: Comment Normal [facility] Comment on above: Result Comment: NEGA TIVE FOR INTRAEPITHELIAL LESION OR MALIGNANCY. Performed at: WB Performed By: #### A MY, CMP, LIPA #### [facility] [address] [place] [address] [address] Moreno Amato HPV Aptima Negative Normal Negative [facility] Comment on above: Result Comment: This nucleic acid amplification test detects fourteen high-risk HPV types (16,18,31,33,35,39,45,51,52,56,58,59,66,68) without differentiation. Performed at: =G Performed By: #### A MY, CMP, LIPA #### [facility] [address] [place] [address] [address] Moreno Amato HPV Genotype Reflex Comment Normal [facility] Comment on above: Result Comment: Crit eria not met, HPV Genotype not performed. Performed at: WB Performed By: #### A MY, CMP, LIPA #### [facility] [address] [place] [address] [address] Moreno Amato Methodology: Comment Normal [facility] Comment on above: Result Comment: This liquid based ThinPrep(R) pap test was screened with the use of an image guided system. Performed at: WB Performed By: #### A MY, CMP, LIPA #### [facility] [address] [place] [address] [address] Moreno Amato Note: Comment Normal [facility] Comment on above: Result Comment: The [...] By: #### A MY, CMP, LIPA #### [facility] [address] [place] [address] [address] Moreno Amato Performed by: Comment Normal [facility] Comment on above: Result Comment: Maria Luisa Chou, Outside Sales Account Manager (ASCP) Performed at: WB Performed By: #### A MY, CMP, LIPA #### [facility] [address] [place] [address] [address] Moreno Amato Specimen adequacy: Comment Normal [facility] Comment on above: Result Comment: Sati sfactory for evaluation. Endocervical and/or squamous metaplastic cells (endocervical component) are present. Performed at: WB Performed By: #### A MY, CMP, LIPA #### [facility] [address] [place] [address] [address] Moreno Amato XR CHEST 2 Von [...] AMY ROSS Date: 2022-02-19 22:40 Normal [facility] CARDIAC STRESS/REST INJE CTIONon 01-23-2022 [facility] CARDIAC STRESS/REST INJECTION Patient Name: DEYSI HERNANDEZ STUDY: MYOCARDIAL PERFUSION STRESS TEST WITH LEXISCAN Performing facility: [facility], [address] [place] [address], [address], [place] [id number] [facility] Provider: Carlene Beal MD, FACC PCP: Dr. Mariann Thompson Supervising provider: Autumn Guidry RN, FEED ELEVATOR WORKER INDICATION: Chest discomfort Elevated troponin Hyperlipidemia HISTORY: Gender: F; Age: 61 y/o ; Height: 0 cm; Weight: 71.2425873 kg. High Cholesterol; HTN; Chest Pain; Quit smoking <1 year ago. COMPARISON: No comparison. ACCESSION NUMBER(S): [id number]; [id number]; [id number] ORDERING CLINICIAN: MARQUEZ BEAL TECHNIQUE: ONE DAY [...] Electronically signed by: WAQAR MARTINEZ MD Normal [facility] No Panel Informationon 01-23 Normal [facility] 600 DO Work Phone: Tobacco Screening.on 022 Fall risk assessment a) No falls within the last year [facility] 600 DO Work Phone: Tobacco use status CP b) No [facility] 600 DO Work Phone: MG MAMM SCREEN 3D NIRMALA CADon 10-30-2021 MG MAMM SCREEN 3D NIRMALA CAD Patient: DEYSI HERNANDEZ Exam Date: 10/30/2021 : 1960 Gender:F Ordering : SHAIKH Ford THOMPSON . Admission #: [id number] Family : Order #: [id number] CLICK HERE TO VIEW EXAM RADIOLOGY REPORT PROCEDURE: MAMMOGRAM SCREENING 3D BILATERAL CAD COMPARISON: MG MAMM NIRMALA SCRN W CAD DIG, 12/05/2012. INDICATIONS: Screening mammography Calculator Name NCI Breast Cancer Risk Assessment Tool 5 Year Breast Cancer Risk 1.00% Lifetime Breast Cancer Risk 5.50% Personal Breast Cancer No Personal Ovarian Cancer No Treatments None Family Cancers None LOCATION: [facility] BREAST COMPOSITION: Scattered areas fibroglandular density. FINDINGS: [...] Wade M.D. on 10/31/2021 at 08:52 Normal [facility] Cardiac Stress Teston 2021 Cardiac Stress Test [facility] [address] [place] [address], [address] [place] [address] Exercise Stress Test Patient Name: DEYSI HERNANDEZ Ordering Physician: [id number] Beal MD Study Date: 10/17/2021 Reading Physician: [id number] Jaycob Newman MD, [facility] MRN/PID: [id number] Supervising Physician: [id number] Jaycob Newman MD, [facility] Accession/Order#: [id number] Referring Physician: [id number] BEAL Date of : 1960 PCP: Mariann THOMPSON Gender: M Fellow: Height: 162.56 cm Nurse: Jackie Shen RN Weight: 68.95 kg Adventure Education Teacher: KYLE BSA: 1.74 m2 Technologist: BMI: 26.09 kg/m2 Additional Staff: Age: 61 years cc report to: Patient Location: cc report to: [id number] Marquez Beal MD Study Type: Cardiac Stress Test Diagnosis/ICD: R07.89-Other chest pain Indication: Chest Pain Atypical Procedure/CPT: Stress Test Interpretation-[id number]; Stress Test Supervision-[id number] Falls Risk: Low: Patient has low risk [...] The adequate level of stress was achieved. [id number] Jaycob Newman MD, [facility] Electronically signed on 10/23/2021 at 12:29:13 PM Final Normal [facility] Cardiac Stress Test Please click on the link to view the study images [facility] Work Phone: Cardiac Stress Test [facility] [place] [facility] 250 DO Work Phone: Creatinine and Glomerular fi ltration rate.predicted panel (S/P/Bld)Ordered By: Marquez Beal on 09-18-2021 Creatinine [Mass/Vol] 1.10 mg/dL 0.44-1.[address] [facility] Estimated glomerular filtrat ion rate (GFR) non- AmericanOrdered By: Marquez Beal on 09-18-2021 GFR/1.73 sq M.predicted among non-blacks MDRD (S/P/Bld) [Vol rate/Area] 51 mL/Min [facility] No Panel InformationOrdered By: Marquez Beal on 09-18-2021 Estimated GFR () > 60 mL/Min [facility] Comment on above: GFR estimated refere nce range: According to KDOQI guidelines, <60 ml/min/1.73m2 is sufficient to diagnose a patient with chronic kidney disease. Pharmacy Creatinine Clearance (Chem N/A [facility] No Panel Informationon 09-18 9.8\S\9.8 Normal 8.2-10.2 [facility] 250 DO Work Phone: Comment on above: PERFORMED BY:[facility] [place], [place] [id number] MEDICAL DIRECTORJERAMY CALDWELL M.D. 25.1\S\25.1 Normal 22.0-30.0 [facility] 250 DO Work Phone: 100\S\100 Normal 95-114 [facility] Work Phone: 3.9\S\3.9 Normal 3.5-5.1 [facility] [facility] 250 DO Work Phone: 138\S\138 Normal 136-146 [facility] Work Phone: > 60 [facility] Work Phone: Comment on above: GFR estimated refere nce range: According to KDOQI guidelines, <60 ml/min/1.73m2 is sufficient to diagnose a patient with chronic kidney disease. 51\S\51 [facility] Work Phone: 1.10\S\1.10 above high threshold 0.44-1.03 [facility] Work Phone: 15\S\15 Normal 9-23 [facility] Work Phone: [phone] 95\S\95 Normal 70-100 [facility] Work Phone: Comment on above: Random Glucose Refer ence Range is dependent on time and content of last meal. Glucose of more than 200 mg/dL in a nonstressed, ambulatory subject supports the diagnosis of Diabetes Mellitus. ADA recommended reference range Serum or plasma calcium teagan urement (mass/volume)Ordered By: Marquez Beal on 09-18-2021 Calcium [Mass/Vol] 9.8 mg/dL 8.2-10.2 [facility] Serum or plasma chloride sophia surement (moles/volume)Ordered By: Marquez Beal on 09-18-2021 Chloride [Moles/Vol] 100 mmol/L 95-114 [facility] Serum or plasma glucose teagan urement (mass/volume)Ordered By: Marquez Beal on 09-18-2021 Glucose [Mass/Vol] 95 mg/dL 70-100 [facility] Comment on above: ADA recommended refe rence range Random Glucose Reference Range is dependent on time and content of last meal. Glucose of more than 200 mg/dL in a nonstressed, ambulatory subject supports the diagnosis of Diabetes Mellitus. Serum or plasma potassium me asurement (moles/volume)Ordered By: Marquez Beal on 09-18-2021 Potassium [Moles/Vol] 3.9 mmol/L 3.5-5.[address] [facility] Serum or plasma sodium measu rement (moles/volume)Ordered By: Marquez Beal on 09-18-2021 Sodium [Moles/Vol] 138 mmol/L 136-146 [facility] Serum or plasma total carbon dioxide measurement (moles/volume)Ordered By: Marquez Beal on 09-18-2021 CO2 [Moles/Vol] 25.1 mmol/L 22.0-30.0 [facility] Serum or plasma urea nitroge n measurement (mass/volume)Ordered By: Marquez Beal on 09-18-2021 Urea nitrogen [Mass/Vol] 15 mg/dL 9-23 [facility] Tobacco Screening.on 022 Adult depression screening assessment No [facility] 250 DO Work Phone: Fall risk assessment a) No falls within the last year [facility] 250 DO Work Phone: Tobacco use status CPHS a) Yes [facility] 250 DO Work Phone: Tobacco Screening. Yes [facility] [place] 250 DO Work Phone: Bacterial blood cultureOrder ed By: Bong Sosarram on 08-19-2021 Bacteria identified Cx Nom (Bld) NO GROWTH 5 DAYS [facility] Basophils Auto (Bld) [#/Vol] Ordered By: Alaina Arce on 08-17-2021 Basophils (Bld) [#/Vol] 0.1 10*3/uL 0.0-0.2 [facility] Basophils/100 WBC Auto (Bld) Ordered By: Alaina Arce on 08-17-2021 Basophils/100 WBC (Bld) 0.7 % . [facility] Blood hemoglobin measurement (mass/volume)Ordered By: Alaina Arce on 08-17-2021 Hemoglobin (Bld) [Mass/Vol] 15.0 g/dL 11.8-15.4 [facility] Blood leukocytes automated c ount (number/volume)Ordered By: Alaina Arce on 08-17-2021 WBC (Bld) [#/Vol] 10.0 10*3/uL 4.5-11.0 [facility] Creatinine and Glomerular fi ltration rate.predicted panel (S/P/Bld)Ordered By: Alaina Arce on 08-17-2021 Creatinine [Mass/Vol] 1.27 mg/dL 0.44-1.[address] [facility] Eosinophils Auto (Bld) [#/Vo l]Ordered By: Alaina Arce on 08-17-2021 Eosinophils (Bld) [#/Vol] 0.2 10*3/uL 0.0-0.45 [facility] Eosinophils/100 WBC Auto (Bl d)Ordered By: Alaina Arce on 08-17-2021 Eosinophils/100 WBC (Bld) 1.8 % . [facility] Erythrocyte distribution wid th Auto (RBC) [Ratio]Ordered By: Alaina Arce on 08-17-2021 Erythrocyte distribution width (RBC) [Ratio] 12.7 % 11.9-15.3 [facility] Estimated glomerular filtrat ion rate (GFR) non- AmericanOrdered By: Alaina Arce on 08-17-2021 GFR/1.73 sq M.predicted among non-blacks MDRD (S/P/Bld) [Vol rate/Area] 43 mL/Min [facility] Hematocrit Auto (Bld) [Volum e fraction]Ordered By: Alaina Arce on 08-17-2021 Hematocrit (Bld) [Volume fraction] 42.6 % 34.0-46.4 [facility] Laboratory - Hematology and Cell countsOrdered By: Alaina Arce on 08-17-2021 Nucleated RBC/100 WBC (Bld) [Ratio] 0.0 % 0-0.5 [facility] Lymphocytes Auto (Bld) [#/Vo l]Ordered By: Alaina Arce on 08-17-2021 Lymphocytes (Bld) [#/Vol] 2.4 10*3/uL 1.00-4.8 [facility] Lymphocytes/100 WBC Auto (Bl d)Ordered By: Alaina Arce on 08-17-2021 Lymphocytes/100 WBC (Bld) 23.7 % . [facility] MCH Auto (RBC) [Entitic mass ]Ordered By: Alaina Arce on 08-17-2021 MCH (RBC) [Entitic mass] 31.0 pg 24.7-34.3 [facility] MCHC Auto (RBC) [Mass/Vol]Or dered By: Alaina Arce on 08-17-2021 MCHC (RBC) [Mass/Vol] 35.3 g/dL 32.0-35.[address] [facility] MCV Auto (RBC) [Entitic vol] Ordered By: Alaina Arce on 08-17-2021 MCV (RBC) [Entitic vol] 87.8 fL 80-100 [facility] Monocytes Auto (Bld) [#/Vol] Ordered By: Alaina Arce on 08-17-2021 Monocytes (Bld) [#/Vol] 1.0 10*3/uL 0.0-0.8 [facility] Monocytes/100 WBC Auto (Bld) Ordered By: Alaina Arce on 08-17-2021 Monocytes/100 WBC (Bld) 10.2 % . [facility] Neutrophils Auto (Bld) [#/Vo l]Ordered By: Alaina Arce on 08-17-2021 Neutrophils (Bld) [#/Vol] 6.3 10*3/uL 1.8-7.7 [facility] Neutrophils/100 WBC Auto (Bl d)Ordered By: Alaina Arce on 08-17-2021 Neutrophils/100 WBC (Bld) 63.6 % . [facility] No Panel InformationOrdered By: Alaina Arce on 08-17-2021 Estimated GFR () 52 mL/Min [facility] Comment on above: GFR estimated refere nce range: According to KDOQI guidelines, <60 ml/min/1.73m2 is sufficient to diagnose a patient with chronic kidney disease. Pharmacy Creatinine Clearance (Chem 47.54 [facility] Platelet mean volume Auto (B ld) [Entitic vol]Ordered By: Alaina Arce on 08-17-2021 Platelet mean volume (Bld) [Entitic vol] 8.5 fL 6.3-10.7 [facility] Platelets Auto (Bld) [#/Vol] Ordered By: Alaina Arce on 08-17-2021 Platelets (Bld) [#/Vol] 241 10*3/uL 150-450 [facility] RBC Auto (Bld) [#/Vol]Ordere d By: Alaina Arce on 08-17-2021 RBC (Bld) [#/Vol] 4.85 10*6/uL 3.60-5.00 [facility] Serum or plasma calcium teagan urement (mass/volume)Ordered By: Alaina Arce on 08-17-2021 Calcium [Mass/Vol] 8.9 mg/dL 8.2-10.2 [facility] Serum or plasma chloride sophia surement (moles/volume)Ordered By: Alaina Arce on 08-17-2021 Chloride [Moles/Vol] 101 mmol/L 95-114 [facility] Serum or plasma glucose teagan urement (mass/volume)Ordered By: Alaina Arce on 08-17-2021 Glucose [Mass/Vol] 132 mg/dL 70-100 [facility] Comment on above: ADA recommended refe rence range Random Glucose Reference Range is dependent on time and content of last meal. Glucose of more than 200 mg/dL in a nonstressed, ambulatory subject supports the diagnosis of Diabetes Mellitus. Serum or plasma potassium me asurement (moles/volume)Ordered By: Alaina Arce on 08-17-2021 Potassium [Moles/Vol] 2.9 mmol/L 3.5-5.[address] [facility] Comment on above: Results called at 0721 on 08/17/21 Serum or plasma sodium measu rement (moles/volume)Ordered By: Alaina Arce on 08-17-2021 Sodium [Moles/Vol] 137 mmol/L 136-146 [facility] Serum or plasma total carbon dioxide measurement (moles/volume)Ordered By: Alaina Arce on 08-17-2021 CO2 [Moles/Vol] 25.3 mmol/L 22.0-30.0 [facility] Serum or plasma urea nitroge n measurement (mass/volume)Ordered By: Alaina Arce on 08-17-2021 Urea nitrogen [Mass/Vol] 17 mg/dL 9-23 [facility] Albumin [Mass/volume] in Ser um or PlasmaOrdered By: Alaina Arce on 08-16-2021 Albumin [Mass/Vol] 3.1 g/dL 3.2-5.5 [facility] Globulin Calc (S) [Mass/Vol] Ordered By: Alaina Arce on 08-16-2021 Globulin (S) [Mass/Vol] 3.0 g/dL [facility] Protein [Mass/volume] in Ser um or PlasmaOrdered By: Alaina Arce on 08-16-2021 Protein [Mass/Vol] 6.1 g/dL 6.1-7.9 [facility] Serum or plasma alanine spencer otransferase measurement without P-5'-P (enzymatic activiOrdered By: Alaina Arce on 08-16-2021 ALT No additional P-5'-P [Catalytic activity/Vol] 57 U/L 10-60 [facility] Serum or plasma albumin/glob ulin mass ratioOrdered By: Alaina Arce on 08-16-2021 Albumin/Globulin [Mass ratio] 1.0 {ratio} [facility] Serum or plasma alkaline calvin sphatase measurement (enzymatic activity/volume)Ordered By: Alaina Arce on 08-16-2021 ALP [Catalytic activity/Vol] 76 U/L 32-92 [facility] Serum or plasma aspartate am inotransferase measurement (enzymatic activity/volume)Ordered By: Alaina Arce on 08-16-2021 AST [Catalytic activity/Vol] 47 U/L 10-42 [facility] Serum or plasma total biliru bin measurement (mass/volume)Ordered By: Alaina Arce on 08-16-2021 Bilirubin [Mass/Vol] 1.5 mg/dL 0.3-1.2 [facility] Comment on above: Samples from patient s who have taken Naproxen have shown spurious elevation in Total Bilirubin levels. A metabolite of Naproxen, O-desmethylnaproxen, has been shown to interfere with the Alhaji-Joseph method for measuring Total Bilirubin. Amphetamine Screen Ql (U)Ord ered By: Alaina Arce on 08-15-2021 Amphetamines Ql (U) Negative Negative [facility] Antithrombin measurement (un its/volume) in platelet poor plasma by chromogenic methodOrdered By: Janet Hamm on 08-15-2021 Antithrombin Chromogenic method Qn (PPP) 113 % 75-135 [facility] Comment on above: Direct Xa inhibitor anticoagulants such as rivaroxaban, apixaban and edoxaban will lead to spuriously elevated antithrombin activity levels possibly masking a deficiency. Barbiturates [Presence] in U rineOrdered By: Alaina Arce on 08-15-2021 Barbiturates Ql (U) Negative Negative [facility] Benzodiazepines [Presence] i n UrineOrdered By: Alaina Arce on 08-15-2021 Benzodiazepines Ql (U) Negative Negative [facility] Beta 2 glycoprotein 1 IgG Ab [Units/volume] in SerumOrdered By: Janet Hamm on 08-15-2021 Beta 2 glycoprotein 1 IgG Qn (S) <9 0-20 [facility] Comment on above: Result Units: GPI [...] glycoprotein 1 IgM Qn (S) <9 0-32 [facility] Comment on above: Result Units: GPI [...] 08-15-2021 Cannabinoids Screen Ql (U) Negative Negative [facility] Comment on above: These are unconfirme [...] IA Qn (S) <9 GPL U/mL 0-14 [facility] Comment on above: Negative: <15 Indeterminate: 15 - 20 Low-Med Positive: >20 - 80 High Positive: >80 Cardiolipin IgM Ab [Units/vo lume] in Serum by ImmunoassayOrdered By: Janet Hamm on 08-15-2021 Cardiolipin IgM IA Qn (S) 17 MPL U/mL 0-12 [facility] Comment on above: Negative: <13 Indeterminate: 13 - 20 Low-Med Positive: >20 - 80 High Positive: >80 Cholesterol [Mass/volume] in Serum or PlasmaOrdered By: Janet Hamm on 08-15-2021 Cholesterol [Mass/Vol] 259 mg/dL 140-200 [facility] Comment on above: Chol less than 200 m g/dl low risk Chol 201-239 mg/dl borderline risk Chol 240 mg/dl and greater high risk Cholesterol in LDL Calc [Mas s/Vol]Ordered By: Janet Hamm on 08-15-2021 Cholesterol in LDL [Mass/Vol] 176 mg/dL 0-100 [facility] Comment on above: LDL ATP III CLASSIFI CATION LDL less than 100 mg/dL Optimal LDL 100-129 mg/dL Near or above optimal LDL 130-159 mg/dL Borderline high LDL 160-189 mg/dL High LDL greater than 189 mg/dL Very high Cholesterol in VLDL Calc [Ma ss/Vol]Ordered By: Janet Hamm on 08-15-2021 Cholesterol in VLDL [Mass/Vol] 32 mg/dL [facility] Dilute Vinay's viper venom timeOrdered By: Janet Hamm on 08-15-2021 dRVVT Coag (PPP) [Time] 45.5 s 0.0-47.0 [facility] Free protein S measurementOr dered By: Janet Hamm on 08-15-2021 Protein S Free Ag IA Qn (PPP) 134 % 61-136 [facility] Functional protein C measure mentOrdered By: Janet Hamm on 08-15-2021 Protein C actual/normal Chromogenic method (PPP) [Rel catalytic activity/Vol] 158 % 73-180 [facility] Laboratory - Drug toxicology Ordered By: Alaina Arce on 08-15-2021 Opiates Ql (U) Negative Negative [facility] Lupus anticoagulant [Interpr etation] in Platelet poor plasmaOrdered By: Janet Hamm on 08-15-2021 Lupus anticoagulant (PPP) [Interp] Comment: . [facility] Comment on above: No lupus anticoagula nt was detected. No Panel InformationOrdered By: Janet Hamm on 08-15-2021 Activated Protein C Resist Confirm 2.6 ratio 2.2-3.5 [facility] Comment on above: The APCR result may be falsely increased (masking an abnormal, low APCR result) in patients on direct Xa inhibitor (e.g., rivaroxaban, apixaban, edoxaban) or a direct thrombin inhibitor (e.g., dabigatran) anticoagulant therapy due to assay interference by these drugs. Phencyclidine Screen Ql (U)O rdered By: Alaina Arce on 08-15-2021 Phencyclidine Ql (U) Negative Negative [facility] Plasminogen measurementOrder ed By: Janet Hamm on 08-15-2021 Plasminogen actual/normal Chromogenic method (PPP) [Rel catalytic activity/Vol] 119 % 70-150 [facility] Platelet poor plasma ratio o f lupus anticoagulant-sensitive activated partial thromboOrdered By: Janet Hamm on 08-15-2021 aPTT.lupus sensitive.excess phospholipid actual/normal Coag (PPP) [Relative time] 38.6 sec 0.0-47.6 [facility] Prothrombin gene [id number] mut ation detectionOrdered By: Janet Hamm on 08-15-2021 F2 gene targeted mutation analysis Molgen Nom (Bld/Tiss) See comment . [facility] Comment on above: Result: c.*97G>A - [...] the F2 gene and a c.1601G>A (p. [id number]) variant in the F5 gene (commonly referred to as Factor V Leiden) have an approximately 20- fold increased risk for venous thromboembolism. Risks are likely to be even higher in more complex genotype combinations involving the F2 c.*97G>A variant and Factor V Leiden (PMID: [id number]). Additional risk factors include but are not [...] health care providers to discuss results at [phone] ([phone]). Test Details: Variant analyzed: c.*97G>A, previously referred to as [id number] Methods/Limitations: DNA analysis of the F2 gene [...] developed and its performance characteristics determined by [facility]. It has not been cleared or approved by the Food and Drug Administration. References: Taj Church, Briana MCLAUGHLIN, Gilberto R, Bogdan WW, Yanick JH; [employer] Professional Practice and Guidelines Committee. Addendum: [employer] consensus statement on factor V Leiden mutation testing. Zoë Med. 2020Apr 22. doi: 10.1038/r40720-098-59033-x. PMID: 75999226. Edgardo KRISHNA. Prothrombin Thrombophilia. 2005Sep 11 [Updated 2020Mar 24]. In: Rober MP, Thaddeus HH, Iman RA, et al., editors. Aliyah(R) [Internet]. [place] ([place]): [facility]; 7952-8338. Available from: https://www.ncbi.nlm.nih.gov/books/YXS2011/ Ariel Church, Briana MCLAUGHLIN, Aakash X, Grady B, Vidal EB, Siobhan P, Anny CS; [employer] Laboratory Upholstery Tech Committee. Venous thromboembolism laboratory testing (factor V Leiden and factor II c.*97G>A), 2018 update: a technical standard of the [employer] ([employer]MG). Zoë Med. 2018 Jan;20(12):5669-4900. doi: 10.1038/[id number]-q. Epub 2017Nov 22. PMID: 12907794. Evon Negron, PhD, FACMG Otis Guthrie, PhD, FACMG Rehan Goodson, PhD, FACMG Nick Bergeron, PhD, FACMG W Mona Pagan, PhD, FACMG Vee Mera, PhD, FACMG Gregoria Carrasco, PhD, FACMG Performed at: CB - [facility] [address] [id number] Heading Machine Operator: Harshad Acosta PhD, Phone: [phone] Performed at: - [facility] [address] [id number] Heading Machine Operator: Veronica Ring MD, Phone: [phone] Performed at: TG - [facility] [address] [place], [place] [id number] Heading Machine Operator: Becky Cabezas [facility], Phone: [phone] Serum or plasma high density lipoprotein (HDL) cholesterol measurementOrdered By: Janet Hamm on 08-15-2021 Cholesterol in HDL [Mass/Vol] 50 mg/dL 35-85 [facility] Comment on above: HDL CHOL ATP-III CLA SSIFICATION Cardiovascular Risk HDL > or equal to 60 mg/dL LOW HDL < 40 mg/dL HIGH Serum or plasma homocysteine measurement (moles/volume)Ordered By: Janet Hamm on 08-15-2021 Homocysteine [Moles/Vol] 12.8 umol/L 0.0-14.5 [facility] Serum or plasma total choles terol/high density lipoprotein (HDL) cholesterol mass ratOrdered By: Janet Hamm on 08-15-2021 Cholesterol.total/Chol esterol in HDL [Mass ratio] 5.2 {ratio} <5.0 [facility] Triglyceride [Mass/volume] i n Serum or PlasmaOrdered By: Janet Hamm on 08-15-2021 Triglyceride [Mass/Vol] 164 mg/dL 35-149 [facility] Comment on above: TRIG ATP III CLASSIF ICATION TRIG less than 150 mg/dL Normal TRIG 150-199 mg/dL Borderline high TRIG 200-500 mg/dL High TRIG greater than 500 mg/dL Very high Standard traceable to the Center for Disease Conrtrol and Prevention (CDC) test method. Urine cocaine detectionOrder ed By: Alaina Arce on 08-15-2021 Cocaine Ql (U) Negative Negative [facility] Urine culture routineOrdered By: Alaina Arce on 08-15-2021 Bacteria identified Cx Nom (U) 2 Days [facility] aPTT.lupus sensitive (LA scr een)Ordered By: Janet Hamm on 08-15-2021 aPTT.lupus sensitive Coag (PPP) [Time] 35.2 sec 0.0-51.9 [facility] aPTT.lupus sensitive/aPTT.sheryl pus sensitive W excess phospholipid (screen to confirm raOrdered By: Janet Hamm on 08-15-2021 aPTT.lupus sensitive/aPTT.lupus sensitive W excess phospholipid Coag (PPP) [Ratio] 0.94 Ratio 0.00-1.34 [facility] Activated partial thrombopla stin time (aPTT) in platelet poor plasma by coagulation aOrdered By: Bong Bansal on 08-14-2021 aPTT Coag (PPP) [Time] 28.2 s 25.1-36.5 [facility] Bacterial blood cultureOrder ed By: Bong Bansal on 08-14-2021 Bacteria identified Cx Nom (Bld) NO GROWTH 5 DAYS [facility] Creatinine [Mass/volume] in UrineOrdered By: Alaina Arce on 08-14-2021 Creatinine (U) [Mass/Vol] 74.6 mg/dL [facility] Comment on above: No reference range e stablished Glucose Glucometer (BldC) [M ass/Vol]Ordered By: Alaina Arce on 08-14-2021 Glucose [Mass/Vol] 102 mg/dL [facility] Comment on above: Random Glucose Refer ence Range is dependent on time and content of last meal. Glucose of more than 200 mg/dL in a nonstressed, ambulatory subject supports the diagnosis of Diabetes Mellitus. Glucose mean value [Mass/vol ume] in Blood Estimated from glycated hemoglobinOrdered By: Janet Hamm on 08-14-2021 Average glucose Estimated from glycated hemoglobin (Bld) [Mass/Vol] 126 mg/dL [facility] Hemoglobin A1c percentageOrd ered By: Janet Hamm on 08-14-2021 HbA1c (Bld) [Mass fraction] 6.0 % 4.3-5.6 [facility] Comment on above: Increased risk for d iabetes: 5.7 - 6.4 diabetes: >6.4 glycemic control for adults with diabetes: <7.0 Laboratory - Chemistry and C hemistry - challengeOrdered By: Alaina Arce on 08-14-2021 Magnesium [Mass/Vol] 2.3 mg/dL 1.6-2.6 [facility] Laboratory - CoagulationOrde red By: Bong Bansal on 08-14-2021 PT Coag (PPP) [Time] 11.8 s 9.0-12.9 [facility] Platelet poor plasma interna tional normalized ratio (INR) by coagulation assay (relatOrdered By: Bong Bansal on 08-14-2021 INR Coag (PPP) [Relative time] 1.1 {INR} [facility] Comment on above: INR Therapeutic Rang [...] Protein (U) [Mass/Vol] 100 mg/dL 0-9 Fi [facility] Renin activityOrdered By: Emma Arce on 08-14-2021 Renin (P) [Catalytic activity/Vol] 27.141 ng/mL/hr 0.167-5.38 0 [facility] Comment on above: This test was devkatrinao ped and its performance characteristics determined by [facility]. It has not been cleared or approved by the Food and Drug Administration. Performed at: - [facility] [address] [id number] Heading Machine Operator: Veronica Ring MD, Phone: [phone] Serum or plasma aldosterone measurement (mass/volume)Ordered By: Alaina Arce on 08-14-2021 Aldosterone [Mass/Vol] 7.8 ng/dL 0.0-30.0 [facility] Comment on above: This test was develo ped and its performance characteristics determined by [facility]. It has not been cleared or approved by the Food and Drug Administration. Performed at: BN - [facility] [address] [id number] Heading Machine Operator: Veronica Ring MD, Phone: [phone] Urine protein/creatinine rat ioOrdered By: Alaina Arce on 08-14-2021 Protein/Creatinine (U) [Ratio] 1340 mg/g{Cre} 0-200 [facility] Urine sodium measurement (mo les/volume)Ordered By: Alaina Arce on 08-14-2021 Sodium (U) [Moles/Vol] 54.0 mmol/L [facility] Comment on above: No reference range e stablished AMYLASEon 08-13-2021 Amylase [Catalytic activity/Vol] 80 U/L Normal 25-115 [facility] Comment on above: Performed By: #### A MY, CMP, LIPA #### [facility] [address] [address] [address] Moreno Amato Automated erythrocytes count in urine sediment (number/area)Ordered By: Alaina Arce on 08-13-2021 RBC Auto (Urine sed) [#/Area] 5-9 [HPF] 0-4 [facility] Automated leukocytes count i n urine sediment (number/area)Ordered By: Alaina Arce on 08-13-2021 WBC Auto (Urine sed) [#/Area] 20-49 [HPF] 0-4 [facility] Bilirubin Test strip Ql (U)O rdered By: Alaina Arce on 08-13-2021 Bilirubin Ql (U) Negative Negative [facility] CBC AUTO DIFFon 08-13-2021 BASO # 0.1 103/ul Normal 0.0-0.1 [facility] Comment on above: Performed By: #### C BC #### [facility] [address] [place] [address] Dr. Moreno Amato Basophils/100 WBC (Bld) 0.6 % Normal 0.2-2.0 [facility] Comment on above: Performed By: #### C BC #### [facility] [address] [place] [address] Dr. Moreno Amato EO # 0.1 103/ul Normal 0.0-0.7 [facility] Comment on above: Performed By: #### C BC #### [facility] [address] [place] [address] Dr. Moreno Amato Eosinophils/100 WBC (Bld) 0.6 % Critically low 0.9-7.0 [facility] Comment on above: Performed By: #### C BC #### [facility] [address] [place] [address] Dr. Moreno Amato Erythrocyte distribution width (RBC) [Ratio] 11.9 % Normal 11.0-15.0 [facility] Comment on above: Performed By: #### C BC #### [facility] [address] [place] [address] Dr. Moreno Amato Hematocrit (Bld) [Volume fraction] 51.0 % Critically high 36.0-48.0 [facility] Comment on above: Performed By: #### C BC #### [facility] [address] [place] [address] Dr. Moreno Amato Hemoglobin (Bld) [Mass/Vol] 18.2 g/dL Critically high 12.0-16.0 [facility] Comment on above: Performed By: #### C BC #### [facility] [address] [place] [address] Dr. Moreno Amato IG # 0.04 10e3/ul Critically high 0.00-0.03 [facility] Comment on above: Performed By: #### C BC #### [facility] [address] [place] [address] Dr. Moreno Amato IG % 0.3 % Normal 0.0-0.5 [facility] Comment on above: Performed By: #### C BC #### [facility] [address] [place] [address] Dr. Moreno Amato LYMPH # 2.2 103/ul Normal 1.2-3.8 [facility] Comment on above: Performed By: #### C BC #### [facility] [address] [place] [address] Dr. Moreno Amato Lymphocytes/100 WBC (Bld) 17.1 % Critically low 20.5-60.0 [facility] Comment on above: Performed By: #### C BC #### [facility] [address] [place] [address] Dr. Moreno Amato MANUAL DIFF REQ NO Normal [facility] Comment on above: Performed By: #### C BC #### [facility] [address] [place] [address] Dr. Moreno Amato MCH (RBC) [Entitic mass] 30.4 pg Normal 26.7-34.0 [facility] Comment on above: Performed By: #### C BC #### [facility] [address] [place] [address] Dr. Moreno Amato MCHC (RBC) [Mass/Vol] 35.7 g/dL Critically high 29.9-35.2 [facility] Comment on above: Performed By: #### C BC #### [facility] [address] [place] [address] Dr. Moreno Amato MCV (RBC) [Entitic vol] 85.1 fL Normal 81.0-99.0 [facility] Comment on above: Performed By: #### C BC #### [facility] [address] [place] [address] Dr. Moreno Amato MONO # 1.3 103/ul Critically high 0.3-0.8 [facility] Comment on above: Performed By: #### C BC #### [facility] [address] [place] [address] Dr. Moreno Amato Monocytes/100 WBC (Bld) 10.0 % Normal 1.7-12.0 [facility] Comment on above: Performed By: #### C BC #### [facility] [address] [address] [address] Moreno Amato NEUT # 9.3 103/ul Critically high 1.4-6.5 [facility] Comment on above: Performed By: #### C BC #### [facility] [address] [address] [address] Moreno Amato Neutrophils/100 WBC (Bld) 71.4 % Normal 43.0-75.0 [facility] Comment on above: Performed By: #### C BC #### [facility] [address] [address] [address] Moreno Amato Platelet mean volume (Bld) [Entitic vol] 9.8 fL Normal 9.5-13.5 [facility] Comment on above: Performed By: #### C BC #### [facility] [address] [address] [address] Moreno Amato PLT 242 103/ul Normal 150-450 [facility] Comment on above: Performed By: #### C BC #### [facility] [address] [id number] [address] Moreno Amato RBC 5.99 106/ul Critically high 4.20-5.40 [facility] Comment on above: Performed By: #### C BC #### [facility] [address] [address] [address] Moreno Amato WBC 13.0 103/ul Critically high 4.0-11.0 [facility] Comment on above: Performed By: #### C BC #### [facility] [address] [address] [address] ABD/PELVIS WO CONon [...] Vinay MANN Date: 2021-08-13 03:36 Normal [facility] CT STROKE HEAD WOon 08-14-[address] [...] MAVIS ROSSI Date: 2021-08-13 07:39 Normal [facility] CULTURE URINEon 08-13-2021 CULTURE URINE Culture Observations : LIGHT GROWTH OF MIXED GENITAL ZOE. NO POTENTIAL PATHOGENS SEEN. Normal [facility] Comment on above: Performed By: #### A MY, CMP, LIPA #### [facility] [address] [place] [address] Dr. Moreno Amato Color Auto (U)Ordered By: Emma Arce on 08-13-2021 Color (U) Yellow [facility] Covid-19 PCR (CVDTBH)on 07-20 SARS-CoV-2 (COVID-19) RNA ELISA+probe Ql (Unsp spec) Not detected Normal NOT DETECTED [facility] Comment on above: Result Comment: When diagnostic [...] for this test is supported by the [place] of Health and Human Service's declaration that [...] longer be used). Performed By: #### C VDTBH #### [facility] [address] [place] [address] Dr. Moreno Amato ER URINE PROFILEon Bilirubin Ql (U) Negative Normal NEGATIVE [facility] Comment on above: Performed By: #### E NAOMI ALAN #### [facility] [address] [place] [address] Dr. Moreno Amato Clarity (U) CLEAR Normal CLEAR [facility] Comment on above: Performed By: #### E NAOMI ALAN #### [facility] [address] [place] [address] Dr. Moreno Amato Color (U) LT. YELLOW Normal YELLOW [facility] Comment on above: Performed By: #### Rupal ALAN UMICRO #### [facility] [address] [place] [address] Dr. Moreno Amato ERUAHYevgeniy A micrscopic examina tion will be performed if indicated. Normal [facility] Comment on above: Performed By: #### E DAYANNA, UMICRO #### [facility] [address] [place] [address] Dr. Moreno Amato Glucose Ql (U) Negative Normal NEGATIVE [facility] Comment on above: Performed By: #### Rupal ALAN UMICRO #### [facility] [address] [place] [address] Dr. Moreno Amato Hemoglobin Ql (U) MODERATE Abnormal NEGATIVE [facility] Comment on above: Performed By: #### Rupal RUHannah UMICRO #### [facility] [address] [place] [address] Dr. Moreno Amato Ketones Ql (U) Negative Normal NEGATIVE [facility] Comment on above: Performed By: #### Rupal ALAN UMICRO #### [facility] [address] [place] [address] Dr. Moreno Amato LEUKOCYTES SMALL Abnormal NEGATIVE [facility] Comment on above: Performed By: #### Rupal ALAN, UMICRO #### [facility] [address] [place] [address] Dr. Moreno Amato Nitrite Ql (U) Positive Abnormal NEGATIVE [facility] Comment on above: Performed By: #### Rupal RUHannah, UMICRO #### [facility] [address] [place] [address] Dr. Moreno Amato pH (U) 6.0 [pH] Normal 5-9 [facility] Comment on above: Performed By: #### Rupal ALAN, UMICRO #### [facility] [address] [place] [address] Dr. Moreno Amato SPEC GRAVITY 1.020 Normal 1.005-<=1. 025 [facility] Comment on above: Performed By: #### Rupal ALAN UMICRO #### [facility] [address] [address] [address] Moreno Amato UA PROTEIN >300 Abnormal NEGATIVE/ TRACE [facility] Comment on above: Performed By: #### E DAYANNA, SULAIMANRO #### [facility] [address] [address] [address] Moreno Amato UR MICRO IND INDICATED Normal [facility] Comment on above: Performed By: #### E DAYANNA, SULAIMANRO #### [facility] [address] [address] [address] Moreno Amato Urobilinogen Qn (U) 0.2 {[place]'U}/dL Normal 0.2 - 1. 0 [facility] Comment on above: Performed By: #### SULAIMAN FRANCISCORO #### [facility] [address] [place] [address] Dr. Moreno Amato Ketones Auto test strip (U) [Mass/Vol]Ordered By: Alaina Arce on 08-13-2021 Ketones (U) [Mass/Vol] Negative Negative [facility] LACTATE/LACTIC ACIDon 2021 Lactate [Moles/Vol] 1.1 mmol/L Normal 0.4-1.9 [facility] Comment on above: Performed By: #### A MY, CMP, LIPA #### [facility] [address] [place] [address] Dr. Moreno Amato LIPASEon 08-13-2021 Lipase [Catalytic activity/Vol] 524.0 U/L Critically high 73.0-393.0 [facility] Comment on above: Performed By: #### A MY, CMP, LIPA #### [facility] [address] [place] [address] Dr. Moreno Amato Laboratory - Chemistry and C hemistry - challengeOrdered By: Alaina Arce on 08-13-2021 Lactate [Moles/Vol] 1.6 mmol/L 0.5-2.2 [facility] - UrinalysisOrder ed By: Alaina Arce on 08-13-2021 Hyaline casts LM Ql (Urine sed) 9-19 [LPF] 0-8 [facility] Nitrite Test strip Ql (U)Ord ered By: Alaina Arce on 08-13-2021 Nitrite Ql (U) Positive Negative [facility] POINT OF CARE GLUCOSEon 07-20 Glucose [Mass/Vol] 129 mg/dL Critically high 74-106 [facility] Comment on above: Performed By: #### A MY, CMP, LIPA #### [facility] [address] [address] [address] Moreno Amato PROF 14(COMP METB)on 022 Albumin [Mass/Vol] 3.4 g/dL Normal 3.4-5.0 [facility] Comment on above: Performed By: #### A MY, CMP, LIPA #### [facility] [address] [place] [address] Dr. Moreno Amato Albumin/Globulin [Mass ratio] 0.8 {ratio} Normal [facility] Comment on above: Performed By: #### A MY, CMP, LIPA #### [facility] [address] [address] [address] Moreno Amato ALP [Catalytic activity/Vol] 105 U/L Normal 46-116 [facility] Comment on above: Performed By: #### A MY, CMP, LIPA #### [facility] [address] [place] [address] Dr. Moreno Amato ALT [Catalytic activity/Vol] 22 U/L Normal 14-59 [facility] Comment on above: Performed By: #### A MY, CMP, LIPA #### [facility] [address] [address] [address] Moreno Amato Anion gap [Moles/Vol] 11.6 mmol/L Normal [facility] Comment on above: Performed By: #### A MY, CMP, LIPA #### [facility] [address] [address] [address] Moreno Amato AST [Catalytic activity/Vol] 22 U/L Normal 15-37 [facility] Comment on above: Performed By: #### A MY, CMP, LIPA #### [facility] [address] [address] [address] Moreno Amato Bilirubin [Mass/Vol] 0.7 mg/dL Normal 0.2-1.0 [facility] Comment on above: Performed By: #### A MY, CMP, LIPA #### [facility] [address] [place] [address] Dr. Moreno Amato Calcium [Mass/Vol] 9.6 mg/dL Normal 8.5-10.1 [facility] Comment on above: Performed By: #### A MY, CMP, LIPA #### [facility] [address] [place] [address] Dr. Moreno Amato Chloride [Moles/Vol] 97 mmol/L Critically low 98-107 [facility] Comment on above: Performed By: #### A MY, CMP, LIPA #### [facility] [address] [place] [address] Dr. Moreno Amato CO2 [Moles/Vol] 31.2 mmol/L Normal 21.0-32.0 [facility] Comment on above: Performed By: #### A MY, CMP, LIPA #### [facility] [address] [place] [address] Dr. Moreno Amato Creatinine [Mass/Vol] 1.64 mg/dL Critically high 0.55-1.02 [facility] Comment on above: Performed By: #### A MY, CMP, LIPA #### [facility] [address] [place] [address] Dr. Moreno Amato EGFR-AF STATELESS 39 mL/min/1.73m2 Critically low >=60 [facility] Comment on above: Performed By: #### A MY, CMP, LIPA #### [facility] [address] [place] [address] Dr. Moreno Amato EGFR-NON AF STATELESS 32 mL/min/1.73m2 Critically low >=60 [facility] Comment on above: Performed By: #### A MY, CMP, LIPA #### [facility] [address] [place] [address] Dr. Moreno Amato Globulin (S) [Mass/Vol] 4.1 g/dL Normal [facility] Comment on above: Performed By: #### A MY, CMP, LIPA #### [facility] [address] [address] [address] Moreno Amato Glucose [Mass/Vol] 110 mg/dL Critically high 74-106 [facility] Comment on above: Performed By: #### A MY, CMP, LIPA #### [facility] [address] [address] [address] Moreno Amato Potassium [Moles/Vol] 2.8 mmol/L Critically low 3.5-5.1 [facility] Comment on above: Performed By: #### A MY, CMP, LIPA #### [facility] [address] [place] [address] Dr. Moreno Amato Protein [Mass/Vol] 7.5 g/dL Normal 6.4-8.2 The [facility] Comment on above: Performed By: #### A MY, CMP, LIPA #### [facility] [address] [address] [address] Moreno Amato Sodium [Moles/Vol] 137 mmol/L Normal 136-145 The [facility] Comment on above: Performed By: #### A MY, CMP, LIPA #### [facility] [address] [place] [address] Dr. Moreno Amato Urea nitrogen [Mass/Vol] 26.0 mg/dL Critically high 7.0-18.0 [facility] Comment on above: Performed By: #### A MY, CMP, LIPA #### [facility] [address] [place] [address] Dr. Moreno Amato Urea nitrogen/Creatinine [Mass ratio] 15.9 mg/mg Normal [facility] Comment on above: Performed By: #### A MY, CMP, LIPA #### [facility] [address] [place] [address] Dr. Moreno Amato Protein Auto test strip (U) [Mass/Vol]Ordered By: Alaina Arce on 08-13-2021 Protein (U) [Mass/Vol] mg/dL Negative [facility] Specific gravity Auto test s trip (U) [Rel density]Ordered By: Alainanick Arce on 08-13-2021 Specific gravity (U) [Rel density] 1.017 1.001-1.03 0 [facility] Squamous epithelial cells de tection in urine sediment by light microscopyOrdered By: Alaina Arce on 08-13-2021 Epithelial cells.squamous LM Ql (Urine sed) 3-4 [HPF] 0-2 [facility] TROPONIN, HIGH SENSITIVITYon 08-13-2021 HSTROP 91.0 pg/mL Critically high 4.0-51.3 [facility] Comment on above: Result Comment: CUT- OFF POINTS HAVE BEEN ESTABLISHED BASED ON THE FOURTH UNIVERSAL DEFINITIONS OF MYOCARDIAL INFARCTION. THE UPPER REFERENCE LIMIT (URL) OF TROPONIN, DEFINED THE 99TH PERCENTILE OF cTnI DISTRIBUTION IN A REFERENCE POPULATION, HAS BEEN CONFIRMED THE DECISION THRESHOLD FOR [place] DIAGNOSIS. Performed By: #### A MY, CMP, LIPA #### [facility] [address] [address] [address] Moreno Amato HSTROP 109.0 pg/mL Critically high 4.0-51.3 [facility] Comment on above: Result Comment: CUT- OFF POINTS HAVE BEEN ESTABLISHED BASED ON THE FOURTH UNIVERSAL DEFINITIONS OF MYOCARDIAL INFARCTION. THE UPPER REFERENCE LIMIT (URL) OF TROPONIN, DEFINED THE 99TH PERCENTILE OF cTnI DISTRIBUTION IN A REFERENCE POPULATION, HAS BEEN CONFIRMED THE DECISION THRESHOLD FOR [place] DIAGNOSIS. Performed By: #### H STROPN #### [facility] [address] [address] [address] Moreno Amato Troponin I.cardiac [Mass/vol ume] in Serum or Plasma by High sensitivity methodOrdered By: Alaina Arce on 08-13-2021 Troponin I.cardiac High sensitivity method [Mass/Vol] 50 pg/mL 0-15 [facility] Comment on above: Critical value result called at 1736 on 08/13/21 URINE MICROSCOPIC ONLYon BACTERIA SMALL Abnormal NONE SEEN [facility] Comment on above: Performed By: #### E RUR, UMICRO #### [facility] [address] [address] [address] Moreno Amato Bacteria identified Cx Nom (U) INDICATED Normal [facility] Comment on above: Performed By: #### E RUR, UMICRO #### [facility] [address] [place] [address] Dr. Moreno Amato CAST SEEN Abnormal NONE SEEN [facility] Comment on above: Performed By: #### E RUR, UMICRO #### [facility] [address] [place] [address] Dr. Moreno Amato Crystals LM Nom (Urine sed) NONE SEEN Normal NONE SEEN [facility] Comment on above: Performed By: #### E RUR, UMICRO #### [facility] [address] [place] [address] Dr. Moreno Amato Epithelial cells LM Ql (Urine sed) FEW Abnormal NONE SEEN /RARE [facility] Comment on above: Performed By: #### E RUR, UMICRO #### [facility] [address] [place] [address] Dr. Moreno Amato HYALINE CAST FEW Normal [facility] Comment on above: Performed By: #### E RUR, UMICRO #### [facility] [address] [place] [address] Dr. Moreno Amato MUCOUS NONE SEEN Normal NONE SEEN [facility] Comment on above: Performed By: #### E RUR, UMICRO #### [facility] [address] [place] [address] Dr. Moreno Amato RBC 2-5 Abnormal 0-2 [facility] Comment on above: Performed By: #### E RUR, UMICRO #### [facility] [address] [place] [address] Dr. Moreno Amato WBC 20-50 Abnormal NONE SEEN [facility] Comment on above: Performed By: #### E RUR, UMICRO #### [facility] [address] [place] [address] Dr. Moreno Amato Urine bacteria detection by automated methodOrdered By: Alaina Arce on 08-13-2021 Bacteria Auto Ql (U) None seen None Seen [facility] Urine clarity by refractomet ry automatedOrdered By: Alaina Arce on 08-13-2021 Clarity Refractometry automated (U) Cloudy Clear [facility] Urine culture routineOrdered By: Alaina Arce on 08-13-2021 Bacteria identified Cx Nom (U) 2 Days [facility] Urine glucose measurement by automated test strip (mass/volume)Ordered By: Alaina Arce on 08-13-2021 Glucose Auto test strip (U) [Mass/Vol] Normal mg/dL Normal [facility] Urine hemoglobin detection b y automated test stripOrdered By: Alaina Arce on 08-13-2021 Hemoglobin Auto test strip Ql (U) 1+ Negative [facility] Urine leukocyte esterase det ection by automated test stripOrdered By: Alaina Arce on 08-13-2021 Leukocyte esterase Auto test strip Ql (U) 1+ Negative [facility] Urobilinogen Auto test strip (U) [Mass/Vol]Ordered By: Alaina Arce on 08-13-2021 Urobilinogen (U) [Mass/Vol] Normal mg/dL Normal [facility] XR CHEST 1 Von 08-13-2021 XR [...] by: Vinay MANN Date: 2021-08-13 06:28 Normal [facility] pH Auto test strip (U)Ordere d By: Alaina Arce on 08-13-2021 pH (U) 5.5 [pH] 5.0-9.0 [facility] KYARA DIGITAL SCREEN SELF REFERRAL W OR WO CAD BILATERALon 12-16-2020 [facility] KYARA DIGITAL SCREEN SELF REFERRAL W [...] to the patient regarding the results. [employer] recommends annual mammograms for women 40 years and older. Interpreted by: Uvaldo Read Signed by: Uvaldo Read 12/16/20 Final result Normal [facility] Vital Signs Date Time Vital Sign Value Performing Clinician Facility 01-01-2024 14:45-0500 Blood Pressure Location Dereck GROVES [facility] 01-01-2024 14:45-0500 Diastolic blood pressure 90 mm[Hg] Dereck GROVES [facility] 01-01-2024 14:45-0500 Heart rate 68 /min Dereck GROVES [facility] 01-01-2024 14:45-0500 Respiratory rate 16 /min Dereck GROVES [facility] 01-01-2024 14:45-0500 Systolic blood pressure 130 mm[Hg] Dereck GROVES [facility] 11-29-2023 13:00-0400 Diastolic blood pressure 80 mm[Hg] [facility] 11-29-2023 13:00-0400 Heart rate 68 /min [facility] 11-29-2023 13:00-0400 Mean blood pressure 92 mm[Hg] [facility] 11-29-2023 13:00-0400 Respiratory rate 16 /min [facility] 11-29-2023 13:00-0400 SaO2% (BldA) [Mass fraction] 98 % [facility] 11-29-2023 13:00-0400 Systolic blood pressure 116 mm[Hg] [facility] 11-29-2023 12:00-0400 Heart rate 71 /min [facility] 11-29-2023 12:00-0400 Respiratory rate 20 /min [facility] 11-29-2023 12:00-0400 SaO2% (BldA) [Mass fraction] 97 % [facility] 11-29-2023 12:00-0400 Systolic blood pressure 136 mm[Hg] [facility] 11-29-2023 11:53-0400 Body temperature 97.7 [degF] [facility] 11-29-2023 11:53-0400 Diastolic blood pressure 89 mm[Hg] [facility] 11-29-2023 11:53-0400 Heart rate 70 /min [facility] 11-29-2023 11:53-0400 Respiratory rate 18 /min [facility] 11-29-2023 11:53-0400 SaO2% (BldA) [Mass fraction] 96 % [facility] 11-29-2023 11:53-0400 Systolic blood pressure 149 mm[Hg] [facility] 02-14-2023 09:56-0500 Inhaled oxygen flow rate 1 L/min MD Shaikh Thompson Work Phone: [facility] 02-14-2023 08:00-0500 Body temperature 97.7 [degF] MD Shaikh Thompson Work Phone: [facility] 02-14-2023 08:00-0500 Diastolic blood pressure 69 mm[Hg] MD Shaikh Thompson Work Phone: [facility] 02-14-2023 08:00-0500 Heart rate 78 /min MD Shaikh Thompson Work Phone: [facility] 02-14-2023 08:00-0500 Respiratory rate 20 /min MD Shaikh Thompson Work Phone: [facility] 02-14-2023 08:00-0500 SaO2% (BldA) [Mass fraction] 95 % MD Shaikh Thompson Work Phone: [facility] 02-14-2023 08:00-0500 Systolic blood pressure 118 mm[Hg] MD Shaikh Thompson Work Phone: [facility] 02-14-2023 05:51-0500 Body weight 69.9 kg MD Shaikh Thompson Work Phone: [facility] 02-13-2023 12:53-0500 Body height 157.48 cm MD Shaikh Thompson Work Phone: [facility] 02-10-2023 17:00-0500 Heart rate 85 /min [facility] 02-10-2023 16:38-0500 Diastolic blood pressure 80 mm[Hg] [facility] 02-10-2023 16:38-0500 Heart rate 80 /min [facility] 02-10-2023 16:38-0500 Mean blood pressure 99 mm[Hg] [facility] 02-10-2023 16:38-0500 Respiratory rate 18 /min [facility] 02-10-2023 16:38-0500 SaO2% (BldA) [Mass fraction] 95 % [facility] 02-10-2023 16:38-0500 Systolic blood pressure 138 mm[Hg] [facility] 02-10-2023 15:40-0500 Diastolic blood pressure 92 mm[Hg] [facility] 02-10-2023 15:40-0500 Heart rate 90 /min [facility] 02-10-2023 15:40-0500 Mean blood pressure 105 mm[Hg] [facility] 02-10-2023 15:40-0500 Respiratory rate 20 /min [facility] 02-10-2023 15:40-0500 SaO2% (BldA) [Mass fraction] 94 % [facility] 02-10-2023 15:40-0500 Systolic blood pressure 132 mm[Hg] [facility] 02-10-2023 14:42-0500 Body temperature 98.24 [degF] [facility] 02-10-2023 14:42-0500 Heart rate 93 /min [facility] 02-10-2023 14:42-0500 Respiratory rate 24 /min [facility] 02-10-2023 14:00-0500 Blood Pressure Location Jaxson Johnson [facility] 02-10-2023 14:00-0500 Body temperature 96.8 [degF] Jaxson Johnson [facility] 02-10-2023 14:00-0500 Diastolic blood pressure 90 mm[Hg] Jaxson Johnson [facility] 02-10-2023 14:00-0500 Heart rate 88 /min Jaxson Johnson [facility] 02-10-2023 14:00-0500 SaO2% (BldA) [Mass fraction] 92 % Jaxson Johnson [facility] 02-10-2023 14:00-0500 Systolic blood pressure 140 mm[Hg] Jaxson Johnson [facility] 10-15-2022 17:36-0400 Blood Pressure Location Damion Robledopsey [facility] 10-15-2022 17:36-0400 Body temperature 97.34 [degF] Damion Ham [facility] 10-15-2022 17:36-0400 Diastolic blood pressure 76 mm[Hg] Damion Ham [facility] 10-15-2022 17:36-0400 Heart rate 60 /min Damion Ham [facility] 10-15-2022 17:36-0400 SaO2% (BldA) [Mass fraction] 96 % Damion Robledopsey [facility] 10-15-2022 17:36-0400 Systolic blood pressure 122 mm[Hg] Damion Cheek [facility] 10-09-2022 14:24-0400 Body height 157.5 cm Gurmeet Ojeda MD Work Phone: [facility] 10-09-2022 14:24-0400 Body temperature 97.5 [degF] Gurmeet Ojeda MD Work Phone: [facility] 10-09-2022 14:24-0400 Body weight 71.26 kg Gurmeet Ojeda MD Work Phone: [facility] 10-09-2022 14:24-0400 Diastolic blood pressure 60 mm[Hg] Gurmeet Ojeda MD Work Phone: [facility] 10-09-2022 14:24-0400 Heart rate 60 /min Gurmeet Ojeda MD Work Phone: [facility] 10-09-2022 14:24-0400 Systolic blood pressure 91 mm[Hg] Gurmeet Ojeda MD Work Phone: [facility] 08-09-2022 14:56-0400 Body height 157.5 cm Gurmeet Ojeda MD Work Phone: [facility] 08-09-2022 14:56-0400 Body temperature 97.7 [degF] Gurmeet Ojeda MD Work Phone: [facility] 08-09-2022 14:56-0400 Body weight 72.53 kg Gurmeet Ojeda MD Work Phone: [facility] 08-09-2022 14:56-0400 Diastolic blood pressure 64 mm[Hg] Gurmeet Ojeda MD Work Phone: [facility] 08-09-2022 14:56-0400 Heart rate 65 /min Gurmeet Ojeda MD Work Phone: [facility] 08-09-2022 14:56-0400 Systolic blood pressure 98 mm[Hg] Gurmeet Ojeda MD Work Phone: [facility] 06-14-2022 12:57-0400 Blood Pressure Location Ayala SALAM [facility] 06-14-2022 12:57-0400 Diastolic blood pressure 74 mm[Hg] Ayala SALAM [facility] 06-14-2022 12:57-0400 Heart rate 80 /min Ayala SALAM [facility] 06-14-2022 12:57-0400 Respiratory rate 16 /min Ayala SALAM [facility] 06-14-2022 12:57-0400 Systolic blood pressure 118 mm[Hg] Ayala SALAM [facility] 06-06-2022 10:13-0400 Blood Pressure Location TRUDY NGUYỄN [facility] 06-06-2022 10:13-0400 Diastolic blood pressure 88 mm[Hg] TRUDY NGUYỄN [facility] 06-06-2022 10:13-0400 Heart rate 74 /min TRUDY NGUYỄN [facility] 06-06-2022 10:13-0400 Systolic blood pressure 144 mm[Hg] TRUDY NGUYỄN [facility] 05-23-2022 10:41-0400 Blood Pressure Location TRUDY NGUYỄN [facility] 05-23-2022 10:41-0400 Diastolic blood pressure 85 mm[Hg] TRUDY NGUYỄN [facility] 05-23-2022 10:41-0400 Heart rate 72 /min TRUDY NGUYỄN [facility] 05-23-2022 10:41-0400 Systolic blood pressure 127 mm[Hg] TRUDY NGUYỄN [facility] 04-11-2022 11:01-0500 Blood Pressure Location TRUDY NGUYỄN [facility] 04-11-2022 11:01-0500 Diastolic blood pressure 88 mm[Hg] TRUDY NGUYỄN [facility] 04-11-2022 11:01-0500 Heart rate 71 /min TRUDY ADRIAN [facility] 04-11-2022 11:01-0500 Systolic blood pressure 146 mm[Hg] TRUDY ADRIAN [facility] 03-19-2022 16:35-0500 Body height 163.83 cm Padmini Waynemond Other [facility] [employer] Other 03-19-2022 16:35-0500 Body mass index (BMI) [Ratio] 27.37 kg/m2 Padmini Waynemond Other [employer] Other 03-19-2022 16:35-0500 Body temperature 98.9 [degF] Padmini Waynemond Other [employer] Other 03-19-2022 16:35-0500 Body weight 73.48 kg Padmini Sam Other [employer] Other 03-19-2022 16:35-0500 Respiratory rate 18 /min Padmini Waynemond Other [employer] Other 03-19-2022 16:35-0500 SaO2% (BldA) [Mass fraction] 96 % Padmini Waynemond Other [employer] Other 03-13-2022 10:12-0500 Diastolic blood pressure 59 mm[Hg] MD Shaikh Thompson Work Phone: [facility] 03-13-2022 10:12-0500 Heart rate 77 /min MD Shaikh Thompson Work Phone: [facility] 03-13-2022 10:12-0500 Respiratory rate 18 /min MD Shaikh Thompson Work Phone: [facility] 03-13-2022 10:12-0500 SaO2% (BldA) [Mass fraction] 98 % MD Shaikh Thompson Work Phone: [facility] 03-13-2022 10:12-0500 Systolic blood pressure 93 mm[Hg] MD Shaikh Thompson Work Phone: [facility] 03-13-2022 07:54-0500 Body height 162.56 cm MD Shaikh Thompson Work Phone: [facility] 03-13-2022 07:54-0500 Body temperature 98 [degF] MD Shaikh Thompson Work Phone: [facility] 03-13-2022 07:54-0500 Body weight 73.48 kg MD Shaikh Thompson Work Phone: [facility] 03-12-2022 08:58-0500 Body height 160.02 cm Shaikh Donna Work Phone: [facility] DO Work Phone: 03-12-2022 08:58-0500 Body mass index (BMI) [Ratio] 28.7 kg/m2 Dunbar Donna Work Phone: [facility] DO Work Phone: 03-12-2022 08:58-0500 Body surface area Derived from formula 1.77 m2 Shaikh Jabiergeovanna Work Phone: [facility] DO Work Phone: 03-12-2022 08:58-0500 Body weight 73.48 kg Dunbarkaylen Eugenewayevgeniy Work Phone: [facility] DO Work Phone: 03-12-2022 08:58-0500 Diastolic blood pressure 78 mm[Hg] Dunbar Fawwad Work Phone: [facility] DO Work Phone: 03-12-2022 08:58-0500 Heart rate 66 /min Dunbar Fawwad Work Phone: [facility] DO Work Phone: 03-12-2022 08:58-0500 Systolic blood pressure 110 mm[Hg] Dunbar Fawwad Work Phone: [facility] DO Work Phone: 01-23-2022 12:00-0500 72 1 Dunbar Fawwad Work Phone: [facility] [place] Work Phone: Comment on above: [id number] 11-09-2021 13:26-0400 Body height 160.02 cm Shaikh Diyawwad Work Phone: [facility] 600 DO Work Phone: 11-09-2021 13:26-0400 Body mass index (BMI) [Ratio] 27.83 kg/m2 Dunbar Fawwad Work Phone: [facility] [address] DO Work Phone: 11-09-2021 13:26-0400 Body surface area Derived from formula 1.75 m2 Dunbar Fawwad Work Phone: [facility] [address] DO Work Phone: 11-09-2021 13:26-0400 Body weight 71.27 kg Dunbar Fawwad Work Phone: [facility] [address] DO Work Phone: 11-09-2021 13:26-0400 Diastolic blood pressure 82 mm[Hg] Dunbar Fawwad Work Phone: [facility] [facility] DO Work Phone: 11-09-2021 13:26-0400 Heart rate 64 /min Shaikh Diyawwad Work Phone: [facility] [address] DO Work Phone: 11-09-2021 13:26-0400 Systolic blood pressure 128 mm[Hg] Shaikh Diyawwad Work Phone: [facility] [facility] DO Work Phone: 09-18-2021 10:26-0400 Diastolic blood pressure 80 mm[Hg] Dunbar Fawwad Work Phone: [facility] DO Work Phone: 09-18-2021 10:26-0400 Systolic blood pressure 178 mm[Hg] Shaikh Diyawwad Work Phone: [facility] DO Work Phone: 09-18-2021 10:19-0400 Body height 162.56 cm Shaikh Diyawwad Work Phone: [facility] DO Work Phone: 09-18-2021 10:19-0400 Body mass index (BMI) [Ratio] 26.09 kg/m2 Shaikh Diyawwad Work Phone: [facility] DO Work Phone: 09-18-2021 10:19-0400 Body surface area Derived from formula 1.74 m2 Dunbar Fawwad Work Phone: [facility] DO Work Phone: 08-01-2022 10:19-0400 Body weight 68.95 kg Shaikh Donna Work Phone: [facility] DO Work Phone: 09-18-2021 10:19-0400 Diastolic blood pressure 80 mm[Hg] Shaikh Leoneld Work Phone: [facility] DO Work Phone: 09-18-2021 10:19-0400 Heart rate 60 /min Shaikh Leoneld Work Phone: [facility] DO Work Phone: 09-18-2021 10:19-0400 Systolic blood pressure 180 mm[Hg] Shaikh Leoneld Work Phone: [facility] DO Work Phone: 08-23-2021 14:00-0400 Body temperature 98.9 [degF] Linn Missler Other [employer] Other 08-23-2021 14:00-0400 Body weight 66.13 kg Linn Missler Other [employer] Other 08-23-2021 14:00-0400 Diastolic blood pressure 87 mm[Hg] Linn Missler Other [employer] Other 08-23-2021 14:00-0400 Respiratory rate 18 /min Linn Missler Other [employer] Other 08-23-2021 14:00-0400 SaO2% (BldA) [Mass fraction] 96 % Linn Missler Other [employer] Other 08-23-2021 14:00-0400 Systolic blood pressure 137 mm[Hg] Linn Missler Other [facility] [employer] Other 08-17-2021 12:00-0400 Diastolic blood pressure 94 mm[Hg] PHYSICIAN NO [facility] 08-17-2021 12:00-0400 Heart rate 78 /min PHYSICIAN NO [facility] 08-17-2021 12:00-0400 Respiratory rate 18 /min PHYSICIAN NO [facility] 08-17-2021 12:00-0400 SaO2% (BldA) [Mass fraction] 95 % PHYSICIAN NO [facility] 08-17-2021 12:00-0400 Systolic blood pressure 152 mm[Hg] PHYSICIAN NO [facility] 08-17-2021 08:00-0400 Body temperature 97.5 [degF] PHYSICIAN NO [facility] 08-17-2021 05:57-0400 Body weight 75.8 kg PHYSICIAN NO [facility] 08-17-2021 00:44-0400 Inhaled oxygen flow rate 2 L/min PHYSICIAN NO [facility] 08-16-2021 14:43-0400 Body height 162.56 cm PHYSICIAN NO [facility] 08-16-2021 14:43-0400 Body mass index (BMI) [Ratio] 25.6 kg/m2 PHYSICIAN NO [facility] Encounters Encounter Date Encounter Type Care Provider Facility Start: 05-04-2024 ambulatory Dereck GROVES Facil ty:[id number] Start: 01-09-2024 End: 03-10-2024 Pre-admission assessment Deerck GROVES [facility] Start: 01-09-2024 ambulatory Juany C Sammie Facility :[facility] Start: 01-05-2024 End: 01-05-2024 ambulatory Juany C Sammie Facility:[facility] Start: 01-05-2024 End: 01-05-2024 Patient encounter procedure Juany C Sammie [facility] Start: 01-02-2024 End: 03-04-2024 Pre-admission assessment Dereck R GROVES [facility] Start: 01-01-2024 End: 01-01-2024 ambulatory Dereck GROVES Facility:[facility] Start: 01-01-2024 End: 01-01-2024 Patient encounter procedure Dereck GROVES [facility] Start: 11-29-2023 End: 11-29-2023 Emergency department patient visit Gabby Sandsnate Facility:[facility] Start: 10-11-2023 End: 10-11-2023 Clinisync Result Encounter Shaikh Donna FINNEY Work Phone: [facility] Unsolicited Start: 10-11-2023 End: 10-11-2023 Clinisync Result Encounter Shaikh Donna FINNEY Work Phone: [facility] Unsolicited Start: 08-12-2023 End: 08-12-2023 ambulatory DUNBAR FAWWAD Not Available Start: 07-30-2023 End: 07-30-2023 ambulatory DUNBAR FAWWAD Not Available Start: 06-17-2023 End: 06-17-2023 ambulatory DUNBAR FAWWAD Not Available Start: 06-04-2023 End: 06-04-2023 ambulatory ROSIE Yevgeniy ORTEZER Not Available Start: 06-03-2023 End: 06-03-2023 ambulatory TRUDY ADRIAN Facility:[facility] Start: 06-03-2023 End: 06-03-2023 Patient encounter procedure TRUDY ADRIAN [facility] Start: 05-17-2023 End: 05-17-2023 ambulatory ROSIE ORTEZER Not Available Start: 05-13-2023 End: 05-13-2023 ambulatory DUNBAR FAWWAD Not Available Start: 03-12-2023 End: 03-12-2023 [facility] Start: 03-12-2023 End: 03-12-2023 ambulatory MD Shaikh Thompson Work Phone: [facility] Work Phone: Start: 03-12-2023 End: 03-12-2023 Patient encounter procedure MD Shaikh Thompson Work Phone: [facility] [place] Work Phone: Start: 03-12-2023 End: 03-12-2023 ambulatory [facility] Start: 02-19-2023 End: 02-19-2023 ambulatory SHAIKH DONNA Not Available Start: 02-12-2023 End: 02-14-2023 Evaluation and management of inpatient Obreinaldo Cheo Talbotdennishannah Facility:[facility] Start: 02-12-2023 End: 02-14-2023 Evaluation and management of inpatient MD Shaikh Thompson Work Phone: [facility] [place] [facility] Work Phone: Start: 02-10-2023 End: 02-10-2023 Lab Drop off Jaxson Johnson [facility] Start: 02-10-2023 End: 02-10-2023 Emergency department patient visit Gabby Bossjason [facility] Start: 02-10-2023 End: 02-10-2023 ambulatory Jaxson Johnson Facility:[facility] Start: 02-10-2023 End: 02-10-2023 Patient encounter procedure Jaxson Johnson [facility] Start: 01-30-2023 End: 01-30-2023 ambulatory TRUDY ADRIAN Facility:[facility] Start: 01-30-2023 End: 01-30-2023 Patient encounter procedure TRUDY ADRIAN [facility] Start: 10-29-2022 Orders Only Debra naik [...] End: 10-15-2022 Lab Drop off Damion Cheek [facility] Start: 10-15-2022 End: 10-15-2022 Patient encounter procedure Damion Cheek [facility] Start: 10-15-2022 Rx Renewal Dunbar Donna Work Phone: [facility] [facility] DO Work Phone: Start: 10-09-2022 End: 10-10-2022 ambulatory Rosie Harris DO Work Phone: [facility] Start: 10-09-2022 End: 10-09-2022 Patient encounter procedure Gurmeet Ojeda MD Work Phone: [facility] Comment on above: Stage 3 chronic kidn ey disease, unspecified whether stage 3a or 3b CKD (HCC) (Primary Dx); Tobacco abuse; Hypertension, renal disease; Mixed hyperlipidemia; Atrophic kidney, acquired Start: 08-23-2022 End: 08-24-2022 ambulatory DEBRA FISHMAN Facility:[facility] Start: 08-09-2022 End: 08-09-2022 Patient encounter procedure Gurmeet Ojeda MD Work Phone: [facility] Comment on above: Stage 3b chronic kid domingo disease (HCC) (Primary Dx); Hypertension, unspecified type; Orthostatic hypotension; Alkalosis; Hypercholesteremia Start: 08-09-2022 End: 08-10-2022 ambulatory Debra Fishman MD Work Phone: [facility] Start: 06-19-2022 ambulatory SHAIKH Enrique THOMPSON Facilit y:[facility] Start: 06-14-2022 End: 06-14-2022 Patient encounter procedure Jamie BILLS [facility] Start: 06-12-2022 End: 06-13-2022 ambulatory SHAIKH Enrique OROZCOYevgeniy Facility:H1 Start: 06-06-2022 End: 06-06-2022 Patient encounter procedure TRUDY ADRIAN [facility] Start: 05-23-2022 End: 05-23-2022 Patient encounter procedure TRUDY ADRIAN [facility] Start: 04-30-2022 End: 05-01-2022 ambulatory SHAIKH Enrique THOMPSON Facility:H1 Start: 04-11-2022 End: 04-11-2022 Patient encounter procedure TRUDY ADRIAN [facility] Start: 04-05-2022 End: 04-05-2022 ambulatory Kevyn Sharma Other [facility] Other Start: 04-05-2022 Telephone encounter Kevyn Carmichael [facility] Start: 03-27-2022 End: 03-28-[address] MARQUEZ BEAL Facility:H1 Start: 03-19-2022 End: 03-19-2022 ambulatory Padmini Sam Other [facility] Other Start: 03-19-2022 Office outpatient vi sit 15 minutes Padmini Sam [facility] Start: 03-13-2022 End: 03-13-2022 Admission to same day surgery center MD Shaikh Thompson Work Phone: [facility] Work Phone: Start: 03-13-2022 End: 03-13-2022 ambulatory MD Shaikh Thompson Work Phone: [facility] Work Phone: Start: 03-12-2022 Office outpatient vi sit 25 minutes Shaikh Donna Work Phone: [facility] 250 DO Work Phone: Start: 02-26-2022 End: 02-26-[address] XAVIER STAFFORD . Facility:H1 Start: 02-19-2022 End: 02-20-2022 ambulatory SHAIKH Enrique THOMPSON Facility:H1 Start: 01-29-2022 Chart Update Shaikh Donna Work Phone: [facility] 600 DO Work Phone: Start: 01-23-[address] Marquez Beal II Facility:[id number] Start: 01-23-2022 Patient encounter procedure Shaikh Donna Work Phone: [facility] 250 DO Work Phone: Start: 11-16-2021 Rx Renewal Shaikh Donna Work Phone: [facility] 600 DO Work Phone: Start: 11-09-2021 ambulatory Marquez Polo vinay Hayshussein II Facility: Start: 10-30-2021 End: 10-31-2021 ambulatory DUNBAR H DONNA Facility:H1 Start: 10-24-2021 Chart Update Shaikh Leonelyevgeniy Work Phone: [facility] 250 DO Work Phone: Start: 10-17-[address] Marquez Beal II Facility:[id number] Start: 09-18-2021 ambulatory Marquez Hayshussein II Facility: Start: 09-18-2021 Office outpatient vi sit 25 minutes Shaikh Jabiergeovanna Work Phone: [facility] 250 DO Work Phone: Start: 09-18-2021 End: 09-18-2021 Patient encounter procedure PHYSICIAN NO [facility] Ctr-Lab [place] Start: 09-18-2021 ambulatory Marquez Andrésnik ZI Faci lity:[id number] Start: 08-23-2021 ([facility] CHUCK) [facility] Transition of Care Linn Byrne Count Includes [facility] Start: 08-23-2021 End: 08-23-2021 ambulatory Linn Byrne Other [facility] Other Start: 08-23-2021 End: 08-23-2021 Patient encounter procedure PHYSICIAN NO [facility] Ctr-[facility] Start: 08-17-2021 End: 08-17-2021 Patient encounter procedure PHYSICIAN NO [facility] Ctr-Electrodiagnostics Start: 08-17-2021 ambulatory Marquez Polo vinay Bowennik II Facility:[id number] Start: 08-16-[address] Jaycob Newman Facility:[id number] Start: 08-15-2021 ambulatory Marquez Dianeric vinay Hayshussein II Facility:[id number] Start: 08-14-2021 ambulatory Marquez Hayshussein II Facility:[id number] Start: 08-13-2021 End: 08-17-2021 Evaluation and management of inpatient PHYSICIAN NO [facility] Ctr-[facility] [place] [facility] Start: 08-13-2021 End: 08-13-2021 ambulatory Marquez Beal II Facility:[id number] Start: 12-08-2020 End: 12-11-2020 ambulatory ALEXANDR AMIN [facility] Start: 12-08-2020 End: 12-10-2020 Subsequent hospital visit by physician [facility] Mammography Comment on above: Encounter for screen ing mammogram for malignant neoplasm of breast Procedures Date Procedure Procedure Detail Performing Clinician Start: 10-11-2023 ALL CBC WITH AUTO DIFF Shaikh Donna FINNEY Work Phone: Start: 03-12-2023 Aspartate aminotrans ferase [Enzymatic activity/volume] in Serum or Plasma MARQUEZ BEAL Start: 03-12-2023 Basic metabolic 2000 panel - Serum or Plasma MARQUEZ BEAL Start: 03-12-2023 Lipid panel MARQUEZ RICKETTS Start: 02-20-2023 Mammography Shaikh Jabier austin MD Work Phone: Start: 02-12-2023 Investigation of tra nsfusion reaction MD Shaikh Thompson Work Phone: Start: 02-12-2023 Plain chest X-ray MD Sly Thompson Work Phone: Start: 10-09-2022 Urnls dip stick/tabl et reagent auto microscopy Bulk Order Provider Start: 08-09-2022 Urnls dip stick/tabl et rgnt auto w/o microscopy Bulk Order Provider Start: 03-13-2022 Colonoscopy MD Shaikh Thompson Work Phone: Start: 02-18-2022 Colonoscopy Shaikh Jabier austin MD Work Phone: Start: 11-20-2021 Microscopic observat ion [Identifier] in Cervix by Cyto stain Shaikh Donna FINNEY Work Phone: Start: 08-16-2021 OR KELVIN W/IV [...] None (qualifier value) VERONICA ADRIAN Total colonoscopy Dunbarenrique austin Work Phone: Comment on above: 2016; Urine culture PHYSICIAN NO F PRATIK Plan of Treatment Date Care Activity Detail Author Start: 02-19-2032 Screening for malign ant neoplasm of colon [facility] Start: 11-20-2024 Screening for malign ant neoplasm of cervix [facility] Start: 02-21-2024 Screening for malign ant neoplasm of breast Mammogram [facility] Start: 11-20-2023 End: 11-20-2023 Patient encounter procedure 11/20/2023 5:30 PM EDT Office Visit [facility] [address] [address] Sadaf Hill NP [address] [place] [address] [facility] Start: 10-20-2023 Influenza vaccination Influenza Vacc ine (#1) [facility] Start: 10-10-2023 End: 12-10-2023 Renal function 2000 panel - Serum or Plasma RENAL FUNCTION PANEL Lab Routine Stage 3 chronic kidney disease, unspecified whether stage 3a or 3b CKD (HCC) Expected: 10/10/2023, Expires: 12/10/2023 [facility] Work Phone: Comment on above: Expected: 10/10/2023 , Expires: 12/10/2023 Start: 08-24-2023 SERUM CREATININE SERUM CREATININE Cl [facility] Start: 03-12-2023 FUV, Provider: Marquez Beal, Status: Pen, Time: 11:00 AM ISRRAELV, Provider: Marquez Beal, Status: Pen, Time: 11:00 AM -[facility] 250 DO Work Phone: Start: 02-14-2023 [facility] Start: 02-12-2023 Microbial culture of sputum [facility] Start: 02-12-2023 Aerobic microbial culture Aerobic Cu lture [facility] Start: 02-12-2023 Hospital admission [facility] Start: 02-12-2023 [facility] Start: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
[2024-04-06 07:35] VITALS: BP 143/92; PULSE 89; TEMP 36.1; O2SAT 95
--- NOTE | 2024-04-06 12:06 | PC.NURSE ---
Patient procedure not done, as patient being done on May 04 [address] [place] [address] He office.
== END 2024-04-06 08:25 | disposition home or self-care (01) ==
PROVIDERS: PCP Family Medicine; Visit Provider Urology
DX: R10.9 Unspecified abdominal pain (principal); Z53.8 Procedure and treatment not carried out for other reasons; N26.1 Atrophy of kidney (terminal); Z87.440 Personal history of urinary (tract) infections; I12.9 Hypertensive chronic kidney disease with stage 1 through stage 4 chronic kidney disease, or unspecified chronic kidney disease; N18.9 Chronic kidney disease, unspecified; F17.200 Nicotine dependence, unspecified, uncomplicated; Z86.73 Personal history of transient ischemic attack (TIA), and cerebral infarction without residual deficits
CPT/HCPCS: 52000

== ENCOUNTER 2024-04-15 08:49 | Outpatient (OUT) | payer OTHER, SELFPAY ==
--- OUTSIDE RECORDS SUMMARY | 2024-04-15 09:12 | XMS_ITS | CCD ---
Author Organization [facility] CliniSydc Care Team Providers Care Factory Lay Out Engineer Name Role Phone Unavailable Primary Care Provider Unavailabl e ALEXANDR AMIN S Referring Unavailable NO FAMILY, PHYSICIAN Primary Care Provider Unava MD Alaina Hernandez Admit Provider MD Marquez Beal Referring Provider DO Rober Wyatt Other Provider DO Ricky Reynoso Attending Provider [phone] ALVA Hamm- Janet Attending Provider DARVIN Byrne Attending Provider Linn Byrne Unavailable Shaikh Thompson Unavailable Unavailable Unavailable MD Nick Thompson Primary Care Provider [phone] MD Marquez Beal Attending Provider Emigdio PINON, [...] ailable MD Nick Thompson Primary Care Provider [phone] MD Kevyn Shamra Attending Provider CHARLEE THOMPSONIKH Primary Care Physician [phone] Padmini Sam Unavailable Kevyn Sharma Unavailable [phone] FAWWAD, DUNBAR H Admitting Unavailable FAWWAD, [...] Unavailable Shaikh Thompson MD Primary Care Provider [phone] SHARKIM DEBRA Referring Unavailable FAPOLOD, DUNBAR Primary [...] Attending Unavailable Juany Cochran Primary Care Physician MARQUEZ BEAL Attending Unavailable DONNA, DUNBAR Primary Care Unavailable Jaxson Johnson Admitting Unavailable Jaxson Johnson Attending Unavailable Alvino, Astrvinicio H Attending Unavailable Jaxson Johnson Attending Unavailable Dereck GROVES Attending Unavailable TRUDY ADRIAN Attending Unavailable TRUDY ADRIAN Attending Unavailable Mikhail Dutta MD Primary Care Provider [phone] Sergio COMMUNICATIONS ENGINEER, Sadaf Unavailable Juany Cochran Admitting Unavailable Juany Cochran Attending Unavailable Gabby De Oliveira Attending Unavailable Dereck GROVES Attending Unavailable Juany Cochran Attending Unavailable Juany Cochran Referring Unavailable Allergies Allergy Classification Reported Allergen(s) Allergy Type Date of Onset Reaction(s) Facility (20 sources) Codeine; Translations: [CODEINE] Drug Allergy 5 Swelling, Swelling (finding), Unknown [facility] (1 source) Codeine Drug Allergy 2 [facility] Repository Medications Current Medications Medication Drug Class(es) Dates Sig (Normalized) Sig (Original) [id number] 200 actuat albuterol 0.09 mg/actuat metered dose [...] Aggregation Inhibitor, Nonsteroidal Anti-inflammatory Drug Start: 04-05-2022 [facility] ASPIRIN EC 81 MG TABLET [facility] ASPIRIN EC 81 MG TABLET Start Date: [...] day(s), # 14 cap(s), Refills(s) 0, Pharmacy: [facility]/pharmacy #[id number], 163, cm, 02/10/23 14:52:00 EST, Height/Length [...] day(s), # 21 cap(s), Refills(s) 0, Pharmacy: [facility]/pharmacy #[id number], 163, cm, 10/15/22 17:40:00 EDT, Height/Length [...] take 1 capsule by mouth once daily [facility] D3 25 MCG (1000 UT) capsule Take 25 mcg by mouth Daily 07/23/2023 Active cyclobenzaprine hydrochloride 10 mg oral tablet (5 sources) Muscle Relaxant Start: 11-29-2023 take 1 tablet by mouth three times daily as needed for muscle spasms cyclobenzaprine 10 mg Tab 10 mg = 1 tab(s), Oral, TID, PRN for spasm, # 20 tab(s), Refills(s) 0, Pharmacy: [facility]/pharmacy #[id number], 163, cm, 11/29/23 12:02:00 EDT, Height/Length [...] Daily, # 30 cap(s), Refills(s) 2, Pharmacy: [facility] [id number], 163, cm, 06/14/22 13:00:00 EDT, Height/Length Dosing, [...] day(s), # 15 tab(s), Refills(s) 0, Pharmacy: [facility]/pharmacy #[id number], 163, cm, 02/10/23 14:52:00 EST, Height/Length [...] PT apt this date, is in the [facility]. Normal [facility] Nonvisit Note - PTon 024 Nonvisit Note - PT Nonvisit Note - PT Per the front office secretary, -pt is in [facility]. Normal [facility] Nonvisit Note - PTon 024 Nonvisit Note - PT Nonvisit Note - PT roads too bad, had to turn around, and go back home, cancelled outpatient PT apt this date. Normal [facility] Nonvisit Note - PTon 024 Nonvisit Note - PT Nonvisit Note - PT Pt did not show for 30 minute outpatient PT apt until 15 minutes late. Pt issued full schedule and educated on reason for not being seen this date. Normal [facility] XR Hand 3+ Views Lefton 12-19 [...] mGy = na DAP = na Normal [facility] XR Wrist 3+ Views Lefton XR [...] mGy = na DAP = na Normal [facility] Ambulatory Visit Summaryon 03-02-2023 Ambulatory Visit [...] When: Where: [facility] [address], [place] [address]- Medications What How Much When Instructions Unchanged [...] including vitamins, herbs, eye drops, creams, and lgul-yqs-dpgoghc medicines. ??? Any problems you or family members have had with anesthetic medicines. ??? Any blood disorders you have. ??? Any surgeries you have had. ??? Any medical conditions you have. ??? Whether you are pregna (more content not included)... Normal [facility] Ambulatory Visit Summary Ambulatory Visit Summary [...] [facility] [address] , [place] [address]- Medications What How Much When Instructions Unchanged [...] including vitamins, herbs, eye drops, creams, and vmjf-xhx-vomcgpx medicines. ??? Any problems you or family members have had with anesthetic medicines. ??? Any blood disorders you have. ??? Any surgeries you have had. ??? Any medical conditions you have. ??? Whether you are pregna (more content not included)... Normal [facility] Provider Letteron 01-01-2024 Provider Letter Provider Letter January 01, 2024 DEYSI HERNANDEZ [address] [place] [address] : 1960 To Whom It May Concern, Please excuse above patient from work. Date of Illness: From: 01/01/2024 To: 01/01/2024 May Return to Work On: 01/02/24 Restrictions: None Comments: Patient had an appointment with Dr. Groves on 01/01/24 Sincerely, [facility] Normal [facility] BMPon 11-29-2023 Anion gap [Moles/Vol] 11 mmol/L Normal 6-16 [facility] Comment on above: Performed By: #### 2 [id number] #### [facility] [address] [place] [address] Calcium [Mass/Vol] 9.6 mg/dL Normal 8.9-11.1 [facility] Comment on above: Performed By: #### 2 [id number] #### [facility] [address] [place] [address] Chloride [Moles/Vol] 106 mmol/L Normal 101-111 [facility] Comment on above: Performed By: #### 2 [id number] #### [facility] [address] [place] [address] CO2 [Moles/Vol] 26 mmol/L Normal 21-31 [facility] Comment on above: Performed By: #### 2 [id number] #### [facility] [address] [place] [address] Creatinine [Mass/Vol] 1.2 mg/dL Normal 0.5-1.3 [facility] Comment on above: Performed By: #### 2 [id number] #### [facility] [address] [place] [address] Glucose [Mass/Vol] 102 mg/dL Normal 55-199 [facility] Comment on above: Performed By: #### 2 [id number] #### [facility] [address] [place] [address] Potassium [Moles/Vol] 4.2 mmol/L Normal 3.5-5.3 [facility] Comment on above: Performed By: #### 2 [id number] #### [facility] [address] [place] [address] Sodium [Moles/Vol] 139 mmol/L Normal 135-145 [facility] Comment on above: Performed By: #### 2 [id number] #### [facility] [address] [place] [address] Urea nitrogen [Mass/Vol] 20 mg/dL Normal 5-21 [facility] Comment on above: Performed By: #### 2 [id number] #### [facility] [address] [place] [address] Urea nitrogen/Creatinine [Mass ratio] 17 No Units Normal 10-20 [facility] Comment on above: Performed By: #### 2 [id number] #### [facility] [address] [place] [address] CBC w/ Auto Diffon 4 Basophils/100 WBC (Bld) 0.7 % Normal 0.0-2.0 [facility] Comment on above: Performed By: #### 2 [id number] #### [facility] [address] [place] [address] Basophils/Leukocytes Auto (Bld) [Pure # fraction] 0.1 E9/L Normal 0.0-0.2 [facility] Comment on above: Performed By: #### 2 [id number] #### [facility] [address] [place] [address] Eosinophils (Bld) [#/Vol] 0.3 E9/L Normal 0.0-0.5 [facility] Comment on above: Performed By: #### 2 [id number] #### [facility] [address] [place] [address] Eosinophils/100 WBC (Bld) 3.4 % Normal 0.0-8.0 [facility] Comment on above: Performed By: #### 2 [id number] #### [facility] [address] [place] [address] Erythrocyte distribution width (RBC) [Ratio] 14.0 % Normal 10.9-14.2 [facility] Comment on above: Performed By: #### 2 [id number] #### [facility] [address] [place] [address] Hematocrit (Bld) [Volume fraction] 46.2 % High 34.0-46.0 [facility] Comment on above: Performed By: #### 2 [id number] #### [facility] [address] [place] [address] Hemoglobin (Bld) [Mass/Vol] 16.2 g/dL High 12.0-16.0 [facility] Comment on above: Performed By: #### 2 [id number] #### [facility] [address] [place] [address] Lymphocytes (Bld) [#/Vol] 1.9 E9/L Normal 1.0-4.0 [facility] Comment on above: Performed By: #### 2 [id number] #### [facility] [address] [place] [address] Lymphocytes/100 WBC (Bld) 24.9 % Normal 14.0-50.0 [facility] Comment on above: Performed By: #### 2 479368 #### [facility] [address] [place] [address] MCH (RBC) [Entitic mass] 31.5 pg Normal 27.0-34.0 [facility] Comment on above: Performed By: #### 2 [id number] #### [facility] [address] [place] [address] MCHC (RBC) [Mass/Vol] 35.1 g/dL Normal 31.4-36.0 [facility] Comment on above: Performed By: #### 2 [id number] #### [facility] [address] [place] [address] MCV (RBC) [Entitic vol] 89.9 fL Normal 80.0-100.0 [facility] Comment on above: Performed By: #### 2 [id number] #### [facility] [address] [place] [address] Monocytes (Bld) [#/Vol] 0.6 E9/L Normal 0.2-1.0 [facility] Comment on above: Performed By: #### 2 [id number] #### [facility] [address] [place] [address] Neutrophils (Bld) [#/Vol] 4.8 E9/L Normal 2.0-7.5 [facility] Comment on above: Performed By: #### 2 [id number] #### [facility] [address] [place] [address] Neutrophils/100 WBC (Bld) 62.5 % Normal 36.0-75.0 [facility] Comment on above: Performed By: #### 2 [id number] #### [facility] [address] [place] [address] Platelet mean volume (Bld) [Entitic vol] 7.9 fL Normal 6.4-10.8 [facility] Comment on above: Performed By: #### 2 [id number] #### [facility] [address] [place] [address] Platelets (Bld) [#/Vol] 209.0 E9/L Normal 150.0-500. 0 [facility] Comment on above: Performed By: #### 2 [id number] #### [facility] [address] [place] [address] RBC (Bld) [#/Vol] 5.2 E12/L Normal 4.3-5.9 [facility] Comment on above: Performed By: #### 2 [id number] #### [facility] [address] [place] [address] WBC corrected for nucl RBC Auto (Bld) [#/Vol] 7.6 E9/L Normal 4.0-11.0 [facility] Comment on above: Performed By: #### 2 [id number] #### [facility] [address] [place] [address] CHEMISTRYOrdered By: SYSTEM SYSTEM on 11-29-2023 Anion [...] DO Transcribed by: RACHELLE Technologist: REBECA Peguero [facility] CT Spine Cervical w/o Contra ston [...] DO Transcribed by: RACHELLE Technologist: REBECA Peguero [facility] ED Clinical Summaryon 2023 ED Clinical Summary ED Clinical Summary [address] [address] ED Clinical Summary Person Information Name: DEYSI HERNANDEZ [place] Age: 63 Years : 1960 Sex: Female Language: Vincentian PCP: Juany Cochran DO Marital Status: Visit [...] 11/29/2023 13:57:33 11/29/2023 13:57:33 ADDRESS: [address] [facility] [id number] PHYS DOC NOTES: MEDICAL INFORMATION: Prescriptions Given: New Medications [id number], [address] [place], [place] [id number], [phone] cyclobenzaprine (cyclobenzaprine 10 mg Tab) 1 Tablets [...] Alonso Ha Cote, Louis C, [address] [place] [address] Business (1) In 3 days 12/02/2023 Comments: Continue take ibuprofen myan-swr-dklcktp 600 mg every 6-8 hours for the pain and start taking cyclobenzaprine as prescribed. Return to the emergency room if your symptoms get worse or any new symptoms. DIAGNOSIS: 1:Headache; 2:Closed head injury; 3:Muscle strain; 4:Chest wall pain Normal [facility] ED Note-Physicianon 11-29-19 ED Note-Physician ED [...] [] Head CT not ordered by emergency day care teacher [] Head CT ordered for reasons other than trauma [x] Patient is 18 or older, presenting with minor blunt head trauma. Head CT (including cosigned orders) was ordered by an emergency day care teacher for trauma because (select one or more):[SATISFIES MIPS PERFORMANCE]Reasons: [] Patient is 65 or older [] Patient GCS < 15 [] Patient has focal neurologic deficit [x] Patient has severe headache [] Patient is vomiting [] Severe/dangerousmechanism of injury was identified(select one or more): []MVA with: patient ejection, of another passenger, rollover, speed > 40mph, airbag deployment, coach driver or passenger on ATV or motorcycle [...] cosigned orders) was ordered by an emergency day care teacher for trauma, no indication specified.[DOES NOT SATISFY MIPS PERFORMANCE] Medical Decision Making MEDICAL DECISION MAKING Number and Complexity of Problems Differential Diagnosis: [] [facility] Data External documents reviewed: [] My EKG interpretation: [] My CT interpretation: [] My X-ray interpretation: [] My Ultrasound interpretation: [] Decision rules/scores evaluated: [] Discussed with: [] Treatment and Disposition ED Cou (more content not included)... Normal [facility] Comment on above: Result Comment: Elec tronically Signed By: Alvino Robles, Gabby H\.br\Date and Time Signed: 11/29/23 14:59 EDT ED Patient Summaryon 024 ED Patient Summary ED Patient Summary [address] [address] Patient Discharge Instructions Person Information Name: DEYSI HERNANDEZ Age: 63 Years [facility]: [id number] Arrival Date: 11/29/2023 11:46:45 Discharge Diagnosis: 1:Headache; 2:Closed head injury; 3:Muscle strain; 4:Chest wall pain Primary Care Physician: Juany Cochran DO Provider Information Primary Provider: Gabby De Oliveira M.D. Advanced Crabber:None The exam and treatment you received in the Emergency Department were for an urgent problem and are not intended as complete care. It is important that you follow up with a doctor, nurse practitioner, or physician?s contact lens assistant for ongoing care. If your symptoms [...] Instructions: With: Address: When: Juany Cochran [address] [facility], [place] , [facility] [address] [place] [address] [facility] (1) In 3 days 12/02/2023 Comments: Continue take ibuprofen jtng-hcv-zwcbxil 600 mg every 6-8 hours for the [...] opioids can be used to help relieve vyxhczst-gh-gmhyqp pain and are often prescribed following a [...] following mo (more content not included)... Normal [facility] Extra Blueon 11-29-2023 Tube Collected Plasma Yes Invalid Interpretation Code [facility] Comment on above: Performed By: #### 1 [id number] #### [facility] [address] [place] [address] HEMATOLOGYOrdered By: SYSTEM SYSTEM on 11-29-2023 Basophils/100 [...] Troponin HS 4.80 pg/mL Low 10.10-27.1 0 [facility] Comment on above: Result Comment: The 95% CI (Confidence Interval) PPV (Positive Predictive Value) for myocardial infarction in females is 38 pg/mL, in males 51 pg/mL. The results should be used in conjunction with clinical conditions of myocardial infarction. (Access High Sensitivity Troponin I Instructions For Use, [employer] [place], September 2017) Performed By: #### 2 [id number] #### [facility] [address] [place] [address] XR Ribs Unilat 3 Views Left w/ [...] mGy = . DAP = . Normal [facility] eGFRon 11-29-2023 eGFR 51 mL/min/1.73 m2 Low >=59 [facility] Comment on above: Performed By: #### 1 [id number] #### [facility] [address] [place] [address] ALL CBC WITH AUTO DIFFon BASOPHILS ABSOLUTE AUTO 0.1 [facility] Basophils/100 WBC (Bld) 1.5 % 0.2 - 2.0 % [facility] Eosin[facility]/100 WBC (Bld) 6.5 % 0.9 - 7.0 % [facility] Erythrocyte distribution width (RBC) [Ratio] 13.3 % 11.0 - 15.0 % [facility] Hematocrit (Bld) [Volume fraction] 46.8 % 36.0 - 48.0 % [facility] Hemoglobin (Bld) [Mass/Vol] 15.5 g/dL 12.0 - 16.0 g/dL [facility] IMMATURE GRANULOCYTES ABS AUTO 0.01 [facility] Immature granulocytes/100 WBC (Bld) 0.1 % 0.0 - 0.5 % [facility] Interpretation and review of laboratory results Abnormal [facility] LYMPHOCYTES ABSOLUTE AUTO 2.4 [facility] Lymphocytes/100 WBC (Bld) 26.4 % 20.5 - 60.0 % [facility] MCH (RBC) [Entitic mass] 30.6 pg 26.7 - 34.0 pg [facility] MCHC (RBC) [Mass/Vol] 33.1 g/dL 29.9 - 35.2 g/dL [facility] MCV (RBC) [Entitic vol] 92.5 fL 81.0 - 99.0 fL [facility] MONOCYTES ABSOLUTE AUTO 0.9 High [facility] Monocytes/100 WBC (Bld) 9.9 % 1.7 - 12.0 % [facility] NEUTROPHILS ABSOLUTE AUTO 5.0 [facility] Neutrophils/100 WBC (Bld) 55.6 % 43.0 - 75.0 % [facility] Platelet mean volume (Bld) [Entitic vol] 9.5 fL 9.5 - 13.5 fL [facility] EO # 0.6 [facility] PLT [address] [facility] RBC 5.06 [facility] WBC 9.1 [facility] Aspartate Amino Transferaseo n 03-12-2023 AST [Catalytic activity/Vol] 20 U/L Normal [facility] Comment on above: Order Comment: PT FA STED 121 HOURS Performed By: #### A ST, LIPID, BMP #### [facility] [address] [id number] [place] Aspartate aminotransferase [ Enzymatic activity/volume] in Serum or PlasmaOrdered By: Marquez Beal on 03-12-2023 AST [Catalytic activity/Vol] 20 U/L [facility] Basic Metabolic Panelon 02-19 Anion gap [Moles/Vol] 8.4 mmol/L Normal 6.0-15.0 [facility] Comment on above: Order Comment: PT FA STED 121 HOURS Performed By: #### A ST, LIPID, BMP #### [facility] [address] [place] [address] [place] Calcium [Mass/Vol] 9.8 mg/dL Normal 8.6-10.3 [facility] Comment on above: Order Comment: PT FA STED 121 HOURS Performed By: #### A ST, LIPID, BMP #### [facility] [address] [place] [address] [place] Chloride [Moles/Vol] 108 mmol/L High 98-107 [facility] Comment on above: Order Comment: PT FA STED 121 HOURS Performed By: #### A ST, LIPID, BMP #### [facility] [address] [place] [address] [place] CO2 [Moles/Vol] 30.0 mmol/L Normal 21.0-31.0 [facility] Comment on above: Order Comment: PT FA STED 121 HOURS Performed By: #### A ST, LIPID, BMP #### [facility] [address] [id number] [place] Creatinine [Mass/Vol] 1.39 mg/dL High 0.60-1.20 [facility] Comment on above: Order Comment: PT FA STED 121 HOURS Performed By: #### A ST, LIPID, BMP #### [facility] [address] [place] [address] [place] GFR/1.73 sq M.predicted MDRD (S/P/Bld) [Vol rate/Area] 43.442 mL/min/{1.73_m2} Normal [facility] Comment on above: Order Comment: PT FA STED 121 HOURS Performed By: #### A ST, LIPID, BMP #### [facility] [address] [place] [address] [place] Glucose [Mass/Vol] 93 mg/dL Normal 70-100 [facility] Comment on above: Order Comment: PT FA STED 121 HOURS Result Comment: [place] Glucose Reference Range is dependent on time and content of last meal. Glucose of more than 200 mg/dL in a nonstressed, ambulatory subject supports the diagnosis of Diabetes Mellitus. ADA recommended reference range Performed By: #### A ST, LIPID, BMP #### [facility] [address] [place] [address] [place] Potassium [Moles/Vol] 5.4 mmol/L High 3.5-5.1 [facility] Comment on above: Order Comment: PT FA STED 121 HOURS Performed By: #### A ST, LIPID, BMP #### [facility] [address] [place] [id number] [place] Sodium [Moles/Vol] 141 mmol/L Normal 136-145 [facility] Comment on above: Order Comment: PT FA STED 121 HOURS Performed By: #### A ST, LIPID, BMP #### [facility] [address] [place] [id number] [place] Urea nitrogen [Mass/Vol] 18 mg/dL Normal 7-25 [facility] Comment on above: Order Comment: PT FA STED 121 HOURS Performed By: #### A ST, LIPID, BMP #### [facility] [address] [place] [address] [place] Calcium [Mass/volume] in Ser um or PlasmaOrdered By: Marquez Beal on 03-12-2023 Calcium [Mass/Vol] 9.8 mg/dL 8.6-10.3 [facility] Carbon dioxide, total [Moles /volume] in Serum or PlasmaOrdered By: Marquez Beal on 03-12-2023 CO2 [Moles/Vol] 30.0 mmol/L 21.0-31.0 [facility] Chloride [Moles/volume] in S oralia or PlasmaOrdered By: Marquez Beal on 03-12-2023 Chloride [Moles/Vol] 108 mmol/L 98-107 [facility] Cholesterol [Mass/volume] in Serum or PlasmaOrdered By: Marquez Beal on 03-12-2023 Cholesterol [Mass/Vol] 171 mg/dL 140-200 [facility] Comment on above: Chol less than 200 m g/dl low riskChol 201-239 mg/dl borderline riskChol 240 mg/dl and greater high risk Cholesterol in LDL Calc [Mas s/Vol]Ordered By: Marquez Beal on 03-12-2023 Cholesterol in LDL [Mass/Vol] 93 mg/dL 0-100 [facility] Comment on above: LDL ATP III CLASSIFI CATIONLDL less than 100 mg/dL OptimalLDL 100-129 mg/dL Near or above optimalLDL 130-159 mg/dL Borderline highLDL 160-189 mg/dL HighLDL greater than 189 mg/dL Very high Cholesterol in VLDL Calc [Ma ss/Vol]Ordered By: Marquez Beal on 03-12-2023 Cholesterol in VLDL [Mass/Vol] 33 mg/dL [facility] Creatinine [Mass/volume] in Serum or PlasmaOrdered By: Marquez Beal on 03-12-2023 Creatinine [Mass/Vol] 1.39 mg/dL 0.60-1.20 [facility] Glucose [Mass/volume] in Ser um or PlasmaOrdered By: Marquez Beal on 03-12-2023 Glucose [Mass/Vol] 93 mg/dL 70-100 [facility] Comment on above: ADA recommended refe rence rangeRandom Glucose Reference Range is dependent on time and content of last meal. Glucose of more than 200 mg/dL in a nonstressed, ambulatory subject supports the diagnosis of Diabetes Mellitus. Lipid Panelon 03-12-2023 Cholesterol [Mass/Vol] 171 mg/dL Normal 140-200 [facility] Comment on above: Order Comment: PT FA STED 121 HOURS Result Comment: Chol less than 200 mg/dl low risk Chol 201-239 mg/dl borderline risk Chol 240 mg/dl and greater high risk Performed By: #### A ST, LIPID, BMP #### [facility] [address] [place] [address] [place] Cholesterol in HDL [Mass/Vol] 45 mg/dL Normal 23-92 [facility] Comment on above: Order Comment: PT FA STED 121 HOURS Result Comment: HDL CHOL ATP-III CLASSIFICATION Cardiovascular Risk HDL > or equal to 60 mg/dL LOW HDL < 40 mg/dL HIGH Performed By: #### A ST, LIPID, BMP #### [facility] [address] Cholesterol.total/Chol esterol in HDL [Mass ratio] 3.8 {ratio} Normal <5.0 [facility] Comment on above: Order Comment: PT FA STED 121 HOURS Result Comment: PERF ORMED BY: [place] [address] PATHOLOGIST CULINARY INTERN JERAMY CALDWELL M.D. Performed By: #### A ST, LIPID, BMP #### [facility] [address] LDL Cholesterol,Calculated 93 mg/dL Normal 0-100 [facility] Comment on above: Order Comment: PT FA STED 121 HOURS Result Comment: LDL ATP III CLASSIFICATION LDL less than 100 mg/dL Optimal LDL 100-129 mg/dL Near or above optimal LDL 130-159 mg/dL Borderline high LDL 160-189 mg/dL High LDL greater than 189 mg/dL Very high Performed By: #### A ST, LIPID, BMP #### [facility] [address] [place] [id number] [place] Triglyceride w/Reflex 165 mg/dL High 0-149 [facility] Comment on above: [...] A ST, LIPID, BMP #### [facility] [address] [place] [address] [place] VLDL CHOLESTEROL 33 mg/dL Normal [facility] Comment on above: Order Comment: PT FA STED 121 HOURS Performed By: #### A ST, LIPID, BMP #### [facility] [address] [place] [id number] [facility] No Panel InformationOrdered By: Marquez Beal on 03-12-2023 Estimated GFR (CKD-EPI) 43.442 mL/Min [facility] Creatinine Clearance (Chem N/A [facility] Potassium [Moles/volume] in Serum or PlasmaOrdered By: Marquez Beal on 03-12-2023 Potassium [Moles/Vol] 5.4 mmol/L 3.5-5.1 [facility] Serum or plasma anion gap de terminationOrdered By: Marquez Beal on 03-12-2023 Anion gap [Moles/Vol] 8.4 mmol/L 6.0-15.0 [facility] Serum or plasma high density lipoprotein (HDL) cholesterol measurementOrdered By: Marquez Beal on 03-12-2023 Cholesterol in HDL [Mass/Vol] 45 mg/dL [facility] Comment on above: HDL CHOL ATP-III CLA SSIFICATION Cardiovascular RiskHDL > or equal to 60 mg/dL LOWHDL < 40 mg/dL HIGH Serum or plasma total choles terol/high density lipoprotein (HDL) cholesterol mass ratOrdered By: Marquez Beal on 03-12-2023 Cholesterol.total/Chol esterol in HDL [Mass ratio] 3.8 {ratio} <5.0 [facility] Sodium [Moles/volume] in Ser um or PlasmaOrdered By: Marquez Beal on 03-12-2023 Sodium [Moles/Vol] 141 mmol/L 136-145 [facility] Triglyceride [Mass/volume] i n Serum or PlasmaOrdered By: Marquez Beal on 03-12-2023 Triglyceride [Mass/Vol] 165 mg/dL 0-149 [facility] Comment on above: TRIG ATP III CLASSIF ICATIONTRIG less than 150 mg/dL NormalTRIG 150-199 mg/dL Borderline highTRIG 200-500 mg/dL High TRIG greater than 500 mg/dL Very highStandard traceable to the Center for Disease Conrtrol and Prevention (CDC) test method. Urea nitrogen [Mass/volume] in Serum or PlasmaOrdered By: Marquez Beal on 03-12-2023 Urea nitrogen [Mass/Vol] 18 mg/dL 09-11 [facility] Basic Metabolic Panelon 12-2 Anion gap [Moles/Vol] 12.2 mmol/L Normal 6.0-15.0 [facility] Comment on above: Performed By: #### C BC, BMP ####[place] [id number] [place] [id number] [facility] Calcium [Mass/Vol] 9.4 mg/dL Normal 8.6-10.3 [facility] Comment on above: Performed By: #### C BC, BMP ####[address] [place] [place] [address] [facility] Chloride [Moles/Vol] 103 mmol/L Normal 98-107 [facility] Comment on above: Performed By: #### C BC, BMP ####[address] [place] [address] [facility] CO2 [Moles/Vol] 26.2 mmol/L Normal 21.0-31.0 [facility] Comment on above: Performed By: #### C BC, BMP ####[address] [place] [place] [address] [facility] Creatinine [Mass/Vol] 1.35 mg/dL High 0.60-1.20 [facility] Comment on above: Performed By: #### C BC, BMP ####[address] [place] [place] [address] [place] Creatinine Clr Calc Pharmacy 40.59 Normal [facility] Comment on above: Result Comment: PERF ORMED BY: [facility] [address] [place] [id number] PATHOLOGIST CULINARY INTERN JERAMY CALDWELL M.D. Performed By: #### C BC, BMP ####[place] [place] [address] [place] [id number] [facility] GFR/1.73 sq M.predicted MDRD (S/P/Bld) [Vol rate/Area] 44.991 mL/min/{1.73_m2} Normal [facility] Comment on above: Performed By: #### C JUANITA, BMP ####[address] [place] [place] [address] [facility] Glucose [Mass/Vol] 136 mg/dL High 70-100 [facility] Comment on above: Result Comment: [facility] Glucose Reference Range is dependent on time and content of last meal. Glucose of more than 200 mg/dL in a nonstressed, ambulatory subject supports the diagnosis of Diabetes Mellitus. ADA recommended reference range Performed By: #### C JUANITA, BMP ####[place] [id number] [place] [id number] [facility] Potassium [Moles/Vol] 5.4 mmol/L High 3.5-5.1 [facility] Comment on above: Performed By: #### C JUANITA, BMP ####[place] [id number] [facility] Sodium [Moles/Vol] 136 mmol/L Normal 136-145 [facility] Comment on above: Performed By: #### C JUANITA, BMP ####[place] [id number] [facility] Urea nitrogen [Mass/Vol] 33 mg/dL High 7-25 [facility] Comment on above: Performed By: #### C JUANITA, BMP ####[place] [id number] [place] Basophils Auto (Bld) [#/Vol] Ordered By: Jacques East on 02-14-2023 Basophils (Bld) [#/Vol] 0.0 10*3/uL 0.0-0.2 [facility] Basophils/100 WBC Auto (Bld) Ordered By: Obpatriciadaenrique Chirinosr on 02-14-2023 Basophils/100 WBC (Bld) 0.1 % . [facility] Calcium [Mass/volume] in Ser um or PlasmaOrdered By: Jacques East on 02-14-2023 Calcium [Mass/Vol] 9.4 mg/dL 8.6-10.3 [facility] Carbon dioxide, total [Moles /volume] in Serum or PlasmaOrdered By: Jacques Talbotomahannah on 02-14-2023 CO2 [Moles/Vol] 26.2 mmol/L 21.0-31.0 [facility] Chloride [Moles/volume] in S oralia or PlasmaOrdered By: Jacques Talbotomahannah on 02-14-2023 Chloride [Moles/Vol] 103 mmol/L 98-107 [facility] Complete Blood Count Auto Di ffon 02-14-2023 Basophils (Bld) [#/Vol] 0.0 10*3/uL Normal 0.0-0.2 [facility] Comment on above: Result Comment: PERF ORMED BY: [facility] [address] [place] [address] PATHOLOGIST CULINARY INTERN JERAMY CALDWELL M.D. Performed By: #### C BC, BMP ####[address] Basophils/100 WBC (Bld) 0.1 % Normal . [facility] Comment on above: Performed By: #### C BC, BMP ####[address] Eosinophils (Bld) [#/Vol] 0.0 10*3/uL Normal 0.0-0.45 [facility] Comment on above: Performed By: #### C BC, BMP ####[address] Eosinophils/100 WBC (Bld) 0.0 % Normal . [facility] Comment on above: Performed By: #### C BC, BMP ####[address] Erythrocyte distribution width (RBC) [Ratio] 14.6 % Normal 11.9-15.3 [facility] Comment on above: Performed By: #### C BC, BMP ####[address] Hematocrit (Bld) [Volume fraction] 44.5 % Normal 34.0-46.4 [facility] Comment on above: Performed By: #### C BC, BMP ####[address] Hemoglobin (Bld) [Mass/Vol] 15.1 g/dL Normal 11.8-15.4 [facility] Comment on above: Performed By: #### C JUANITA, BMP ####[address] Lymphocytes (Bld) [#/Vol] 1.0 10*3/uL Normal 1.00-4.8 [facility] Comment on above: Performed By: #### C JUANITA, BMP ####[address] Lymphocytes/100 WBC (Bld) 7.6 % Normal . [facility] Comment on above: Performed By: #### C JUANITA, BMP ####[address] MCH (RBC) [Entitic mass] 30.6 pg Normal 24.7-34.3 [facility] Comment on above: Performed By: #### C JUANITA, BMP ####[address] MCV (RBC) [Entitic vol] 90.4 fL Normal 80-100 [facility] Comment on above: Performed By: #### C JUANITA, BMP ####[address] Mean Corpuscular HGB Conc 33.9 g/dL Normal 32.0-35.0 [facility] Comment on above: Performed By: #### C BC, BMP ####[address] Monocytes (Bld) [#/Vol] 0.6 10*3/uL Normal 0.0-0.8 [facility] Comment on above: Performed By: #### C BC, BMP ####[facility] [place] [address] [facility] Monocytes/100 WBC (Bld) 4.7 % Normal . [facility] Comment on above: Performed By: #### C JUANITA, BMP ####[address] [address] [place] [address] [facility] Neutrophils (Bld) [#/Vol] 11.1 10*3/uL High 1.8-7.7 [facility] Comment on above: Performed By: #### C JUANITA, BMP ####[address] [place] [place] [address] [facility] Neutrophils/100 WBC (Bld) 87.6 % Normal . [facility] Comment on above: Performed By: #### C JUANITA, BMP ####[place] [place] [place] [address] [facility] NRBC% 0.0 /100{WBC} Normal 0-0.5 [facility] Comment on above: Performed By: #### C JUANITA, BMP ####[place] [place] [place] [address] [facility] Platelet mean volume (Bld) [Entitic vol] 8.5 fL Normal 6.3-10.7 [facility] Comment on above: Performed By: #### C JUANITA, BMP ####[address] [place] [place] [address] [facility] Platelets (Bld) [#/Vol] 220 10*3/uL Normal 150-450 [facility] Comment on above: Performed By: #### C JUANITA, BMP ####[address] [address] [facility] RBC (Bld) [#/Vol] 4.92 10*6/uL Normal 3.60-5.00 [facility] Comment on above: Performed By: #### C JUANITA, BMP ####[address] [place] [address] [facility] WBC (Bld) [#/Vol] 12.7 10*3/uL High 3.8-11.6 [facility] Comment on above: Performed By: #### C JUANITA, BMP ####[facility] [address] [place] [address] [facility] Creatinine [Mass/volume] in Serum or PlasmaOrdered By: Jacques East on 02-14-2023 Creatinine [Mass/Vol] 1.35 mg/dL 0.60-1.20 [facility] Eosinophils Auto (Bld) [#/Vo l]Ordered By: Obreinaldo Talbotomar on 02-14-2023 Eosinophils (Bld) [#/Vol] 0.0 10*3/uL 0.0-0.45 [facility] Eosinophils/100 WBC Auto (Bl d)Ordered By: Obreinaldo Chirinosr on 02-14-2023 Eosinophils/100 WBC (Bld) 0.0 % . [facility] Erythrocyte distribution wid th Auto (RBC) [Ratio]Ordered By: Jacques East on 02-14-2023 Erythrocyte distribution width (RBC) [Ratio] 14.6 % 11.9-15.3 [facility] Glucose [Mass/volume] in Ser um or PlasmaOrdered By: Jacques East on 02-14-2023 Glucose [Mass/Vol] 136 mg/dL 70-100 [facility] Comment on above: ADA recommended refe rence rangeRandom Glucose Reference Range is dependent on time and content of last meal. Glucose of more than 200 mg/dL in a nonstressed, ambulatory subject supports the diagnosis of Diabetes Mellitus. Hematocrit Auto (Bld) [Volum e fraction]Ordered By: Jacques East on 02-14-2023 Hematocrit (Bld) [Volume fraction] 44.5 % 34.0-46.4 [facility] Hemoglobin [Mass/volume] in BloodOrdered By: Jacques Chirinosr on 02-14-2023 Hemoglobin (Bld) [Mass/Vol] 15.1 g/dL 11.8-15.4 [facility] Leukocytes [#/volume] correc elliot for nucleated erythrocytes in Blood by Automated counOrdered By: Jacques Talbotomar on 02-14-2023 WBC corrected for nucl RBC Auto (Bld) [#/Vol] 12.7 10*3/uL 3.8-11.6 [facility] Lymphocytes Auto (Bld) [#/Vo l]Ordered By: Obaydah Daromar on 02-14-2023 Lymphocytes (Bld) [#/Vol] 1.0 10*3/uL 1.00-4.8 [facility] Lymphocytes/100 WBC Auto (Bl d)Ordered By: Obaydah Daromar on 02-14-2023 Lymphocytes/100 WBC (Bld) 7.6 % . [facility] MCH Auto (RBC) [Entitic mass ]Ordered By: Obaydah Daromar on 02-14-2023 MCH (RBC) [Entitic mass] 30.6 pg 24.7-34.3 [facility] MCHC Auto (RBC) [Mass/Vol]Or dered By: Obaydah Daromar on 02-14-2023 MCHC (RBC) [Mass/Vol] 33.9 g/dL 32.0-35.0 [facility] MCV Auto (RBC) [Entitic vol] Ordered By: Obaydah Daromar on 02-14-2023 MCV (RBC) [Entitic vol] 90.4 fL 80-100 [facility] Monocytes Auto (Bld) [#/Vol] Ordered By: Obaydah Daromar on 02-14-2023 Monocytes (Bld) [#/Vol] 0.6 10*3/uL 0.0-0.8 [facility] Monocytes/100 WBC Auto (Bld) Ordered By: Obaydah Daromar on 02-14-2023 Monocytes/100 WBC (Bld) 4.7 % . [facility] Neutrophils Auto (Bld) [#/Vo l]Ordered By: Obaydah Daromar on 02-14-2023 Neutrophils (Bld) [#/Vol] 11.1 10*3/uL 1.8-7.7 [facility] Neutrophils/100 WBC Auto (Bl d)Ordered By: Obaydah Daromar on 02-14-2023 Neutrophils/100 WBC (Bld) 87.6 % . [facility] No Panel InformationOrdered By: Obpatriciadah Daromar on 02-14-2023 Estimated GFR (CKD-EPI) 44.991 mL/Min [facility] Creatinine Clearance (Chem 40.59 [facility] Nucleated erythrocytes [Pres ence] in Blood by Automated countOrdered By: Jacques Talbotomar on 02-14-2023 Nucleated RBC Auto Ql (Bld) 0.0 /100{WBC} 0-0.5 [facility] Platelet mean volume Auto (B ld) [Entitic vol]Ordered By: Obpatriciadah Daromar on 02-14-2023 Platelet mean volume (Bld) [Entitic vol] 8.5 fL 6.3-10.7 [facility] Platelets Auto (Bld) [#/Vol] Ordered By: Obpatriciadah Daromar on 02-14-2023 Platelets (Bld) [#/Vol] 220 10*3/uL 150-450 [facility] Potassium [Moles/volume] in Serum or PlasmaOrdered By: Obpatriciadah Daromar on 02-14-2023 Potassium [Moles/Vol] 5.4 mmol/L 3.5-5.1 [facility] RBC Auto (Bld) [#/Vol]Ordere d By: Obpatriciadah Daromar on 02-14-2023 RBC (Bld) [#/Vol] 4.92 10*6/uL 3.60-5.00 [facility] Serum or plasma anion gap de terminationOrdered By: Obpatriciadah Daromar on 02-14-2023 Anion gap [Moles/Vol] 12.2 mmol/L 6.0-15.0 [facility] Sodium [Moles/volume] in Ser um or PlasmaOrdered By: Obaydah Daromar on 02-14-2023 Sodium [Moles/Vol] 136 mmol/L 136-145 [facility] Urea nitrogen [Mass/volume] in Serum or PlasmaOrdered By: Obaydah Daromar on 02-14-2023 Urea nitrogen [Mass/Vol] 33 mg/dL 7-25 [facility] WBC Auto (Bld) [#/Vol]Ordere d By: Obaydah Daromar on 02-14-2023 WBC (Bld) [#/Vol] 12.7 10*3/uL 3.8-11.6 [facility] Alanine aminotransferase [En zymatic activity/volume] in Serum or PlasmaOrdered By: Obpatriciadaenrique Talbotomar on 02-13-2023 ALT [Catalytic activity/Vol] 16 U/L 7-52 [facility] Albumin [Mass/volume] in Ser um or Plasma by Bromocresol green (BCG) dye binding methoOrdered By: Obpatriciadaenrique Talbotomar on 02-13-2023 Albumin BCG dye [Mass/Vol] 4.0 g/dL 3.5-5.7 [facility] Alkaline phosphatase [Enzyma tic activity/volume] in Serum or PlasmaOrdered By: Obpatriciadaenrique Talbotomar on 02-13-2023 ALP [Catalytic activity/Vol] 57 U/L 34-104 [facility] Aspartate aminotransferase [ Enzymatic activity/volume] in Serum or PlasmaOrdered By: Obpatriciadaenrique Talbotomar on 02-13-2023 AST [Catalytic activity/Vol] 22 U/L 13-39 [facility] Bilirubin.total [Mass/volume ] in Serum or PlasmaOrdered By: Obpatriciadaenrique Talbotomar on 02-13-2023 Bilirubin [Mass/Vol] 0.6 mg/dL 0.3-1.0 [facility] Complete Blood Count Auto Di ffon 02-13-2023 Basophils (Bld) [#/Vol] 0.0 10*3/uL Normal 0.0-0.2 [facility] Comment on above: Result Comment: PERF ORMED BY: [facility] [address] [place] [address] PATHOLOGIST CULINARY INTERN JERAMY CALDWELL M.D. Performed By: #### C BC, MG, CMP ####[facility] [id number] [place] [id number] [place] Basophils/100 WBC (Bld) 0.2 % Normal . [facility] Comment on above: Performed By: #### C BC, MG, CMP ####[facility] [address] [place] [id number] [place] Eosinophils (Bld) [#/Vol] 0.0 10*3/uL Normal 0.0-0.45 [facility] Comment on above: Performed By: #### C JUANITA MG, CMP ####[address] Eosinophils/100 WBC (Bld) 0.0 % Normal . [facility] Comment on above: Performed By: #### C JUANITA MG, CMP ####[address] Erythrocyte distribution width (RBC) [Ratio] 14.4 % Normal 11.9-15.3 [facility] Comment on above: Performed By: #### C JUANITA MG, CMP ####[address] Hematocrit (Bld) [Volume fraction] 43.2 % Normal 34.0-46.4 [facility] Comment on above: Performed By: #### C JUANITA MG, CMP ####[address] Hemoglobin (Bld) [Mass/Vol] 14.6 g/dL Normal 11.8-15.4 [facility] Comment on above: Performed By: #### C JUANITA MG, CMP ####[address] Lymphocytes (Bld) [#/Vol] 2.7 10*3/uL Normal 1.00-4.8 [facility] Comment on above: Performed By: #### C BC MG, CMP ####[address] Lymphocytes/100 WBC (Bld) 18.3 % Normal . [facility] Comment on above: Performed By: #### C JUANITA MG, CMP ####[address] MCH (RBC) [Entitic mass] 30.5 pg Normal 24.7-34.3 [facility] Comment on above: Performed By: #### C JUANITA MG, CMP ####[place] [id number] [place] MCV (RBC) [Entitic vol] 90.1 fL Normal 80-100 [facility] Comment on above: Performed By: #### C MG JUANITA, CMP ####[address] Mean Corpuscular HGB Conc 33.8 g/dL Normal 32.0-35.0 [facility] Comment on above: Performed By: #### C JUANITA MG, CMP ####[address] Monocytes (Bld) [#/Vol] 1.2 10*3/uL High 0.0-0.8 [facility] Comment on above: Performed By: #### C MG JUANITA, CMP ####[address] Monocytes/100 WBC (Bld) 7.9 % Normal . [facility] Comment on above: Performed By: #### C MG JUANITA, CMP ####[address] Neutrophils (Bld) [#/Vol] 11.0 10*3/uL High 1.8-7.7 [facility] Comment on above: Performed By: #### Kait GRANT MG, CMP ####[address] Neutrophils/100 WBC (Bld) 73.6 % Normal . [facility] Comment on above: Performed By: #### C JUANITA MG, CMP ####[address] NRBC% 0.1 /100{WBC} Normal 0-0.5 [facility] Comment on above: Performed By: #### C JUANITA MG, CMP ####[address] Platelet mean volume (Bld) [Entitic vol] 7.8 fL Normal 6.3-10.7 [facility] Comment on above: Performed By: #### Kait GRANT MG, CMP ####[place] [id number] [place] [id number] [facility] Platelets (Bld) [#/Vol] 212 10*3/uL Normal 150-450 [facility] Comment on above: Performed By: #### C BC, MG, CMP ####[address] RBC (Bld) [#/Vol] 4.80 10*6/uL Normal 3.60-5.00 [facility] Comment on above: Performed By: #### C BC, MG, CMP ####[place] [id number] [facility] WBC (Bld) [#/Vol] 14.9 10*3/uL High 3.8-11.6 [facility] Comment on above: Performed By: #### C BC, MG, CMP ####[address] Comprehensive Metabolic Pane franco 02-13-2023 Albumin [Mass/Vol] 4.0 g/dL Normal 3.5-5.7 [facility] Comment on above: Performed By: #### C BC, MG, CMP ####[place] [id number] [facility] Albumin/Globulin [Mass ratio] 1.6 {ratio} Normal [facility] Comment on above: Performed By: #### C BC, MG, CMP ####[place] [id number] [facility] ALP [Catalytic activity/Vol] 57 U/L Normal 34-104 [facility] Comment on above: Performed By: #### C BC, MG, CMP ####[place] [id number] [facility] ALT [Catalytic activity/Vol] 16 U/L Normal 7-52 [facility] Comment on above: Performed By: #### C BC, MG, CMP ####[place] [id number] [facility] Anion gap [Moles/Vol] 9.4 mmol/L Normal 6.0-15.0 [facility] Comment on above: Performed By: #### C BC, MG, CMP ####[place] [id number] [facility] AST [Catalytic activity/Vol] 22 U/L Normal 13-39 [facility] Comment on above: Performed By: #### C BC, MG, CMP ####[place] [id number] [facility] Bilirubin [Mass/Vol] 0.6 mg/dL Normal 0.3-1.0 [facility] Comment on above: Performed By: #### C BC, MG, CMP ####[address] Calcium [Mass/Vol] 9.2 mg/dL Normal 8.6-10.3 [facility] Comment on above: Performed By: #### C BC, MG, CMP ####[place] [id number] [facility] Chloride [Moles/Vol] 105 mmol/L Normal 98-107 [facility] Comment on above: Performed By: #### C BC, MG, CMP ####[place] [id number] [facility] CO2 [Moles/Vol] 27.1 mmol/L Normal 21.0-31.0 [facility] Comment on above: Performed By: #### C BC, MG, CMP ####[place] [id number] [facility] Creatinine [Mass/Vol] 1.45 mg/dL High 0.60-1.20 [facility] Comment on above: Performed By: #### C BC, MG, CMP ####[place] [id number] [facility] Creatinine Clr Calc Pharmacy 37.90 Normal [facility] Comment on above: Performed By: #### C BC, MG, CMP ####[place] [id number] [facility] GFR/1.73 sq M.predicted MDRD (S/P/Bld) [Vol rate/Area] 41.294 mL/min/{1.73_m2} Normal [facility] Comment on above: Performed By: #### C BC, MG, CMP ####[address] Globulin (S) [Mass/Vol] 2.5 g/dL Normal [facility] Comment on above: Performed By: #### C BC, MG, CMP ####[place] [id number] [facility] Glucose [Mass/Vol] 92 mg/dL Normal 70-100 [facility] Comment on above: Result Comment: [facility] Glucose Reference Range is dependent on time and content of last meal. Glucose of more than 200 mg/dL in a nonstressed, ambulatory subject supports the diagnosis of Diabetes Mellitus. ADA recommended reference range Performed By: #### C BC, MG, CMP ####[address] Potassium [Moles/Vol] 4.5 mmol/L Normal 3.5-5.1 [facility] Comment on above: Performed By: #### C BC, MG, CMP ####[place] [id number] [facility] Protein [Mass/Vol] 6.5 g/dL Normal 6.4-8.9 [facility] Comment on above: Performed By: #### C BC, MG, CMP ####[place] [id number] [facility] Sodium [Moles/Vol] 137 mmol/L Normal 136-145 [facility] Comment on above: Performed By: #### C BC, MG, CMP ####[place] [id number] [facility] Urea nitrogen [Mass/Vol] 28 mg/dL High 7-25 [facility] Comment on above: Performed By: #### C BC, MG, CMP ####[place] [id number] [facility] [place] Globulin Calc (S) [Mass/Vol] Ordered By: Jacques East on 02-13-2023 Globulin (S) [Mass/Vol] 2.5 g/dL [facility] Magnesiumon 02-13-2023 Magnesium [Mass/Vol] 1.8 mg/dL Low 1.9-2.7 [facility] Comment on above: Result Comment: PERF ORMED BY: [facility] [address] [place] [address] PATHOLOGIST CULINARY INTERN JERAMY CALDWELL M.D. Performed By: #### C BC, MG, CMP ####[facility] [address] [place] [address] [facility] [place] Magnesium [Mass/volume] in S oralia or PlasmaOrdered By: Obpatriciadah Daromar on 02-13-2023 Magnesium [Mass/Vol] 1.8 mg/dL 1.9-2.7 [facility] Protein [Mass/volume] in Ser um or PlasmaOrdered By: Obpatriciadaenrique Daromar on 02-13-2023 Protein [Mass/Vol] 6.5 g/dL 6.4-8.9 [facility] Serum or plasma albumin/glob ulin mass ratioOrdered By: Obpatriciadah Daromar on 02-13-2023 Albumin/Globulin [Mass ratio] 1.6 {ratio} [facility] Activated partial thrombopla stin time (aPTT) in platelet poor plasma by coagulation aOrdered By: Sally Valle on 02-12-2023 aPTT Coag (PPP) [Time] 25.6 s 25.1-36.5 [facility] Comment on above: A hematocrit value g reater than 55% may lead to inaccurate results in coagulation testing. Patients having hematocrit values >55% require a special collection tube for coagulation studies. Please contact the laboratory at [phone] for redraw instructions. Aerobic Cultureon 02-12-2023 Aerobic Culture Light Normal Respira tory Zoe 2 Days Gram Stain Result Rare Epithelial Cells 1+ White Blood Cells Rare Gram Positive Coccobacilli PERFORMED BY: [facility] [address] [place] [address] PATHOLOGIST CULINARY INTERN JERAMY CALDWELL M.D. Normal [facility] Comment on above: Performed By: #### A HANNAH, #### [facility] [address] Auth for Release of Medical Recordson 02-12-2023 Auth for Release of Medical Records [id number] Normal [facility] Automated erythrocytes count in urine sediment (number/area)Ordered By: Obpatriciadah [employer] on 02-12-2023 RBC Auto (Urine sed) [#/Area] 1-2 [HPF] 0-4 [facility] Automated leukocytes count i n urine sediment (number/area)Ordered By: Obaydah [employer] on 02-12-2023 WBC Auto (Urine sed) [#/Area] 3-4 [HPF] 0-4 [facility] Bilirubin Test strip Ql (U)O rdered By: Jaraddaenrique Chirinosr on 02-12-2023 Bilirubin Ql (U) Negative Negative [facility] C Urineon 02-12-2023 Bacteria identified [...] Locations R1: This test was performed at: [facility], [address] [place] [address], [address] , , [facility] Comment on above: Performed By: #### 2 [id number] ####[place] [address] [place] [address] Coagulation Profileon 2022 aPTT Coag (Bld) [Time] 25.6 s Normal 25.1-36.5 [facility] Comment on above: Result Comment: A he matocrit value greater than 55% may lead to inaccurate results in coagulation testing. Patients having hematocrit values >55% require a special collection tube for coagulation studies. Please contact the laboratory at [phone] for redraw instructions. PERFORMED BY: [facility] [address] [place] [id number] PATHOLOGIST CULINARY INTERN JERAMY CALDWELL M.D. Performed By: #### C JUANITA PP, CMP ####[place] [id number] [place] [id number] [facility] [place] INR Coag (PPP) [Relative time] 0.9 {INR} Normal [facility] Comment on above: Result Comment: [...] Performed By: #### C JUANITA PP, CMP ####[place] [id number] [facility] [place] PT Coag (PPP) [Time] 10.9 s Normal 9.0-12.9 [facility] Comment on above: Result Comment: A he matocrit value greater than 55% may lead to inaccurate results in coagulation testing. Patients having hematocrit values >55% require a special collection tube for coagulation studies. Please contact the laboratory at [phone] for redraw instructions. Performed By: #### C JUANITA, PP, CMP ####[place] [id number] [facility] [place] Color Auto (U)Ordered By: Glenroy East on 02-12-2023 Color (U) Yellow Yellow [facility] Complete Blood Count Auto Di ffon 02-12-2023 Basophils (Bld) [#/Vol] 0.0 10*3/uL Normal 0.0-0.2 [facility] Comment on above: Result Comment: PERF ORMED BY: [facility] [address] [place] [address] PATHOLOGIST CULINARY INTERN JERAMY CALDWELL M.D. Performed By: #### C JUANITA, PP, CMP #### [facility] [address] [place] [address] [place] Basophils/100 WBC (Bld) 0.2 % Normal . [facility] Comment on above: Performed By: #### C JUANITA, PP, CMP #### [facility] [address] [place] [address] [place] Eosinophils (Bld) [#/Vol] 0.0 10*3/uL Normal 0.0-0.45 [facility] Comment on above: Performed By: #### C JUANITA, PP, CMP #### [facility] [address] [place] [address] [place] Eosinophils/100 WBC (Bld) 0.0 % Normal . [facility] Comment on above: Performed By: #### C JUANITA PP, CMP #### [address] Erythrocyte distribution width (RBC) [Ratio] 14.6 % Normal 11.9-15.3 [facility] Comment on above: Performed By: #### C JUANITA, PP, CMP #### [address] Hematocrit (Bld) [Volume fraction] 46.1 % Normal 34.0-46.4 [facility] Comment on above: Performed By: #### C JUANITA PP, CMP #### [place] [address] [place] Hemoglobin (Bld) [Mass/Vol] 15.6 g/dL High 11.8-15.4 [facility] Comment on above: Performed By: #### C JUANITA, PP, CMP #### [facility] [address] [place] [address] [place] Lymphocytes (Bld) [#/Vol] 0.6 10*3/uL Low 1.00-4.8 [facility] Comment on above: Performed By: #### C JUANITA, PP, CMP #### [facility] [address] [place] [address] [place] Lymphocytes/100 WBC (Bld) 4.0 % Normal . [facility] Comment on above: Performed By: #### C JUANITA, PP, CMP #### [facility] [address] MCH (RBC) [Entitic mass] 30.6 pg Normal 24.7-34.3 [facility] Comment on above: Performed By: #### C JUANITA, PP, CMP #### [address] MCV (RBC) [Entitic vol] 90.6 fL Normal 80-100 [facility] Comment on above: Performed By: #### C JUANITA, PP, CMP #### [address] Mean Corpuscular HGB Conc 33.8 g/dL Normal 32.0-35.0 [facility] Comment on above: Performed By: #### C JUANITA, PP, CMP #### [address] Monocytes (Bld) [#/Vol] 0.3 10*3/uL Normal 0.0-0.8 [facility] Comment on above: Performed By: #### C JUANITA, PP, CMP #### [address] Monocytes/100 WBC (Bld) 1.8 % Normal . [facility] Comment on above: Performed By: #### C JUANITA, PP, CMP #### [address] Neutrophils (Bld) [#/Vol] 14.1 10*3/uL High 1.8-7.7 [facility] Comment on above: Performed By: #### C BC, PP, CMP #### [address] Neutrophils/100 WBC (Bld) 94.0 % Normal . [facility] Comment on above: Performed By: #### C BC, PP, CMP #### [address] NRBC% 0.1 /100{WBC} Normal 0-0.5 [facility] Comment on above: Performed By: #### C BC, PP, CMP #### [facility] [address] Platelet mean volume (Bld) [Entitic vol] 7.9 fL Normal 6.3-10.7 [facility] Comment on above: Performed By: #### C BC, PP, CMP #### [address] Platelets (Bld) [#/Vol] 236 10*3/uL Normal 150-450 [facility] Comment on above: Performed By: #### C BC, PP, CMP #### [address] RBC (Bld) [#/Vol] 5.09 10*6/uL High 3.60-5.00 [facility] Comment on above: Performed By: #### C BC, PP, CMP #### [address] WBC (Bld) [#/Vol] 15.0 10*3/uL High 3.8-11.6 [facility] Comment on above: Performed By: #### C BC, PP, CMP #### [address] Comprehensive Metabolic Pane franco 02-12-2023 Albumin [Mass/Vol] 4.6 g/dL Normal 3.5-5.7 [facility] Comment on above: Performed By: #### C BC, PP, CMP #### [address] Albumin/Globulin [Mass ratio] 1.5 {ratio} Normal [facility] Comment on above: Performed By: #### C BC, PP, CMP #### [facility] [address] [place] [address] ALP [Catalytic activity/Vol] 70 U/L Normal 34-104 [facility] Comment on above: Performed By: #### C BC, PP, CMP #### [address] ALT [Catalytic activity/Vol] 19 U/L Normal 7-52 [facility] Comment on above: Performed By: #### C BC, PP, CMP #### [facility] [address] [place] [address] [place] Anion gap [Moles/Vol] Not performed Normal 6.0-15.0 [facility] Comment on above: Performed By: #### C BC, PP, CMP #### [facility] [address] [place] [address] [place] AST [Catalytic activity/Vol] 29 U/L Normal 13-39 [facility] Comment on above: Performed By: #### C BC, PP, CMP #### [facility] [address] [place] [address] [place] Bilirubin [Mass/Vol] 0.5 mg/dL Normal 0.3-1.0 [facility] Comment on above: Performed By: #### C BC, PP, CMP #### [facility] [address] [place] [address] [place] Calcium [Mass/Vol] 9.9 mg/dL Normal 8.6-10.3 [facility] Comment on above: Performed By: #### C BC, PP, CMP #### [facility] [address] [place] [address] [place] Chloride [Moles/Vol] 106 mmol/L Normal 98-107 [facility] Comment on above: Performed By: #### C BC, PP, CMP #### [facility] [address] [place] [id number] [place] CO2 [Moles/Vol] 20.4 mmol/L Low 21.0-31.0 [facility] Comment on above: Performed By: #### C BC, PP, CMP #### [facility] [address] [place] [id number] [place] Creatinine [Mass/Vol] 1.65 mg/dL High 0.60-1.20 [facility] Comment on above: Performed By: #### C BC, PP, CMP #### [facility] [address] [place] [id number] [place] Creatinine Clr Calc Pharmacy 34.03 Normal [facility] Comment on above: Result Comment: PERF ORMED BY: [place] [address] PATHOLOGIST CULINARY INTERN JERAMY CALDWELL M.D. Performed By: #### C BC, PP, CMP #### [place] [address] [place] GFR/1.73 sq M.predicted MDRD (S/P/Bld) [Vol rate/Area] 35.363 mL/min/{1.73_m2} Normal [facility] Comment on above: Performed By: #### C BC, PP, CMP #### [address] Globulin (S) [Mass/Vol] 3.1 g/dL Normal [facility] Comment on above: Performed By: #### C BC, PP, CMP #### [address] Glucose [Mass/Vol] 157 mg/dL High 70-100 [facility] Comment on above: Result Comment: [facility] Glucose Reference Range is dependent on time and content of last meal. Glucose of more than 200 mg/dL in a nonstressed, ambulatory subject supports the diagnosis of Diabetes Mellitus. ADA recommended reference range Performed By: #### C JUANITA, PP, CMP #### [address] Potassium Normal 3.5-5.1 [facility] Comment on above: Result Comment: Spec imen hemolyzed, redraw requested Performed By: #### C BC, PP, CMP #### [place] [address] [place] Protein [Mass/Vol] 7.7 g/dL Normal 6.4-8.9 [facility] Comment on above: Performed By: #### C BC, PP, CMP #### [address] Sodium [Moles/Vol] 140 mmol/L Normal 136-145 [facility] Comment on above: Performed By: #### C BC, PP, CMP #### [address] [place] [address] [place] Urea nitrogen [Mass/Vol] 32 mg/dL High 7- [facility] Comment on above: Performed By: #### C BC, PP, CMP #### [facility] [address] [place] [address] Dipstick and Microscopicon 1 04-15-2022 Appearance (U) Clear Normal Clear [facility] Comment on above: Order Comment: Name Collection Type:: Clean-Voided Midstream Performed By: #### A DDONUAPLUS #### [address] Bacteria,Urine None Seen Normal None Seen [facility] Comment on above: Order Comment: Name Collection Type:: Clean-Voided Midstream Performed By: #### A DDONUAPLUS #### [address] Bilirubin,Urine Negative Normal Negative [facility] Comment on above: Order Comment: Name Collection Type:: Clean-Voided Midstream Performed By: #### A DDONUAPLUS #### [address] Color (U) Yellow Normal Yellow [facility] Comment on above: Order Comment: Name Collection Type:: Clean-Voided Midstream Performed By: #### A DDONUAPLUS #### [facility] [address] [place] [address] [place] Glucose Ql (U) Normal Normal Normal [facility] Comment on above: Order Comment: Name Collection Type:: Clean-Voided Midstream Performed By: #### A DDONUAPLUS #### [facility] [address] [place] [address] [place] Hyaline Casts,Urine 0-8 Normal 0-8 [facility] Comment on above: Order Comment: Name Collection Type:: Clean-Voided Midstream Result Comment: PERF ORMED BY: [place] [address] PATHOLOGIST CULINARY INTERN JERAMY CALDWELL M.D. Performed By: #### A DDONUAPLUS #### [facility] [address] [place] [address] [place] Ketones Ql (U) Negative Normal Negative [facility] Comment on above: Order Comment: Name Collection Type:: Clean-Voided Midstream Performed By: #### A DDONUAPLUS #### [address] Leukocyte esterase Test strip Ql (U) 1+ High Negative [facility] Comment on above: Order Comment: Name Collection Type:: Clean-Voided Midstream Performed By: #### A DDONUAPLUS #### [place] [address] [place] Nitrite,Urine Negative Normal Negative [facility] Comment on above: Order Comment: Name Collection Type:: Clean-Voided Midstream Performed By: #### A DDONUAPLUS #### [place] [address] [place] Occult Blood,Urine Negative Normal Negative [facility] Comment on above: Order Comment: Name Collection Type:: Clean-Voided Midstream Result Comment: PERF ORMED BY: [place] [address] PATHOLOGIST CULINARY INTERN JERAMY CALDWELL M.D. Performed By: #### A DDONUAPLUS #### [place] [address] [place] pH (U) 5.0 [pH] Normal 5.0-9.0 [facility] Comment on above: Order Comment: Name Collection Type:: Clean-Voided Midstream Performed By: #### A DDONUAPLUS #### [place] [address] [place] Protein,Urine Negative Normal Negative [facility] Comment on above: Order Comment: Name Collection Type:: Clean-Voided Midstream Performed By: #### A DDONUAPLUS #### [place] [address] [place] RBC,Urine 1-2 Normal 0-4 [facility] Comment on above: Order Comment: Name Collection Type:: Clean-Voided Midstream Performed By: #### A DDONUAPLUS #### [facility] [address] [place] [address] Specificy [place],Urine 1.017 Normal 1.001-1.03 0 [facility] Comment on above: Order Comment: Name Collection Type:: Clean-Voided Midstream Performed By: #### A DDONUAPLUS #### [address] Squamous Epithelial Cell,Urine 0-1 Normal 0-2 [facility] Comment on above: Order Comment: Name Collection Type:: Clean-Voided Midstream Performed By: #### A DDONUAPLUS #### [address] Urobilinogen,Urine Normal Normal Normal [facility] Comment on above: Order Comment: Name Collection Type:: Clean-Voided Midstream Performed By: #### A DDONUAPLUS #### [address] WBC,Urine 3-4 Normal 0-4 [facility] Comment on above: Order Comment: Name Collection Type:: Clean-Voided Midstream Performed By: #### A DDONUAPLUS #### [address] ECG 12 lead ECGon 02-12-2023 ECG 12 lead ECG [facility] [place] [address] [place] [address] Electrocardiograph Report Signed Patient: Deysi Hernandez MR#: [id number] : 1960 Acct:[id number] Age/Sex: 62 / F ADM Date: 02/12/23 Loc: Room: [address] [place] [address] Type: ADM IN Attending Dr: Jacques East [...] Signed By Bj Bay DO 02/13 1109 [facility] Gram Stainon 02-12-2023 Microscopic observation Gram stain Nom (Unsp spec) Gram Stain Result Rare Epithelial Cells 1+ White Blood Cells Rare Gram Positive Coccobacilli PERFORMED BY: [place] [address] PATHOLOGIST CULINARY INTERN JERAMY CALDWELL M.D. [facility] Comment on above: Performed By: #### A [facility] #### [address] Gram stain for investigation of transfusion reactionOrdered By: Jacques East on 02-12-2023 Microscopic observation Gram stain Nom (Unsp spec) [facility] Microscopic observation Gram stain Nom (Unsp spec) 2 Days [facility] INR in Platelet poor plasma by Coagulation assayOrdered By: Sally Valle on 02-12-2023 INR Coag (PPP) [Relative time] 0.9 {INR} [facility] Comment on above: INR Therapeutic [...] on 02-12-2023 Ketones (U) [Mass/Vol] Negative Negative [facility] - UrinalysisOrder ed By: Jacques East on 02-12-2023 Hyaline casts LM Ql (Urine sed) 0-8 [LPF] 0-8 [facility] Magnesiumon 02-12-2023 Magnesium [Mass/Vol] 1.8 mg/dL Low 1.9-2.7 [facility] Comment on above: Result Comment: PERF ORMED BY: [facility] [address] [place] [address] PATHOLOGIST CULINARY INTERN JERAMY CALDWELL M.D. Performed By: #### M G ####[place] [address] [place] [address] [facility] Nitrite Test strip Ql (U)Ord ered By: Jacques East on 02-12-2023 Nitrite Ql (U) Negative Negative [facility] Protein Auto test strip (U) [Mass/Vol]Ordered By: Jacques East on 02-12-2023 Protein (U) [Mass/Vol] Negative Negative [facility] Prothrombin time (PT)Ordered By: Sally Valle on 02-12-2023 PT Coag (PPP) [Time] 10.9 s 9.0-12.9 [facility] Comment on above: A hematocrit value g reater than 55% may lead to inaccurate results in coagulation testing. Patients having hematocrit values >55% require a special collection tube for coagulation studies. Please contact the laboratory at [phone] for redraw instructions. Redraw Potassiumon 3 Potassium [Moles/Vol] 4.4 mmol/L Normal 3.5-5.1 [facility] Comment on above: Order Comment: 1ST S pecimen hemolyzed, redraw requested Result Comment: PERF ORMED BY: [facility] [address] [place] [address] PATHOLOGIST CULINARY INTERN JERAMY CALDWELL M.D. Performed By: #### R EDRAW K ####[place] [address] [place] [address] [facility] Specific gravity Auto test s trip (U) [Rel density]Ordered By: Jacques East on 02-12-2023 Specific gravity (U) [Rel density] 1.017 1.001-1.03 0 [facility] Squamous epithelial cells de tection in urine sediment by light microscopyOrdered By: Jacques East on 02-12-2023 Epithelial cells.squamous LM Ql (Urine sed) 0-1 [HPF] 0-2 [facility] Troponin I High Sensitivityo n 02-12-2023 Troponin I High Sensitivity 43.8 pg/mL High 0.0-15.0 [facility] Comment on above: Result Comment: PERF ORMED BY: [place] [address] PATHOLOGIST CULINARY INTERN JERAMY CALDWELL M.D. Performed By: #### H S TROP ####[place] [address] [place] [address] [facility] Troponin I High Sensitivity 70.6 pg/mL Off scale high 0.0-15.0 [facility] Comment on above: Result Comment: Crit ical Result : Called to and read back by: BRANDON LEVINE at: 02/12/2023 08:07:31 by:LUCIANO PERFORMED BY: [address] [id number] PATHOLOGIST CULINARY INTERN JERAMY CALDWELL M.D. Performed By: #### H S TROP ####[address] [address] [facility] Troponin I.cardiac [Mass/vol ume] in Serum or Plasma by Detection limit <= 0.01 ng/Ordered By: Sally Valle on 02-12-2023 Troponin I.cardiac DL <= 0.01 ng/mL [Mass/Vol] 43.8 pg/mL 0.0-15.0 [facility] Urine bacteria detection by automated methodOrdered By: Jacques East on 02-12-2023 Bacteria Auto Ql (U) None seen None Seen [facility] Urine clarity by refractomet ry automatedOrdered By: Jacques East on 02-12-2023 Clarity Refractometry automated (U) Clear Clear [facility] Urine glucose measurement by automated test strip (mass/volume)Ordered By: Jacques East on 02-12-2023 Glucose Auto test strip (U) [Mass/Vol] Normal mg/dL Normal [facility] Urine hemoglobin detection b y automated test stripOrdered By: Jacques East on 02-12-2023 Hemoglobin Auto test strip Ql (U) Negative Negative [facility] Urine leukocyte esterase det ection by automated test stripOrdered By: Jacques East on 02-12-2023 Leukocyte esterase Auto test strip Ql (U) 1+ Negative [facility] Urobilinogen Auto test strip (U) [Mass/Vol]Ordered By: Jacques East on 02-12-2023 Urobilinogen (U) [Mass/Vol] Normal mg/dL Normal [facility] XR chest 1V portableon 02-12 XR chest 1V portable [facility] [place] [address] XRay Report Signed Patient: Deysi Hernandez MR#: [id number] : 1960 Acct:[id number] Age/Sex: 62 / F ADM Date: 02/12/23 Loc: Room: [address] [place] [address] Type: ADM IN Attending Dr: Jacques East [...] Bj Ma M.D.02/12/2023 12:40 PM Dictation Location: [place] [address] Transcribed By: BRUCE 02/12/23 1240 Dictated By: Bj Ma DO 02/12/23 1237 Signed By: 02/12/23 1240 Normal [facility] pH Auto test strip (U)Ordere d By: Jacques East on 02-12-2023 pH (U) 5.0 [pH] 5.0-9.0 [facility] Ambulatory Visit Summaryon 1 04-13-2022 Ambulatory Visit Summary DEYSI HERNANDEZ :1960 Visit Date:02/10/2023 Ambulatory Visit Instructions Your Diagnosis Dysuria Tests Performed Urnls Dip Stick Auto w/o Microscopy POC 92806 Your Care Team Attending Physician - Alex [...] Urnls Dip Stick Auto w/o Microscopy POC 21737 (02/10/2023) Bilirubin Urine Dipstick - Negative Blood Urine Dipstick - 2+ Moderate Glucose Urine Dipstick - Negative Ketones Urine Dipstick - Negative Leukocytes Urine Dipstick - 1+ Small Nitrite Urine Dipstick - Positive Protein Urine Dipstick - Negative Specific [place] Urine Dipstick - 1.015 Urine Appearance Urine [...] for choosing us for your care. Normal [facility] Auto Diffon 02-10-2023 Basophils/100 WBC (Bld) 1.3 % Normal 0.0-2.0 [facility] Comment on above: Order Comment: Order Added by Discern Expert. Performed By: #### 2 [id number], [id number], [id number], [id number], [id number], [id number], [id number] ####[facility] [address] [place] [address] Basophils/Leukocytes Auto (Bld) [Pure # fraction] 0.1 E9/L Normal 0.0-0.2 [facility] Comment on above: Order Comment: Order Added by Discern Expert. Performed By: #### 2 [id number], [id number], [id number], [id number], [id number], [id number], [id number] ####[facility] [id number] [place] [address] Eosinophils/100 WBC (Bld) 1.5 % Normal 0.0-8.0 [facility] Comment on above: Order Comment: Order Added by Discern Expert. Performed By: #### 2 [id number], [id number], [id number], [id number], [id number], [id number], [id number] ####[facility] [id number] [place] [address] Eosinophils/Leukocytes Auto (Bld) [Pure # fraction] 0.1 E9/L Normal 0.0-0.5 [facility] Comment on above: Order Comment: Order Added by Discern Expert. Performed By: #### 2 [id number], [id number], [id number], [id number], [id number], [id number], [id number] ####[place] [address] [place] [address] Lymphocytes/100 WBC (Bld) 16.8 % Normal 14.0-50.0 [facility] Comment on above: Order Comment: Order Added by Discern Expert. Performed By: #### 2 [id number], [id number], [id number], 3097935, 2705084, 04524862, 15918510 ####[address] [address] Lymphocytes/Leukocytes Auto (Bld) [Pure # fraction] 1.6 E9/L Normal 1.0-4.0 [facility] Comment on above: Order Comment: Order Added by Edmund Expert. Performed By: #### 2 220665, 09452832, 16383960, 1349355, 8029867, 40929613, 27736497 ####[address] [address] Monocytes/100 WBC (Bld) 9.8 % Normal 4.0-14.0 [facility] Comment on above: Order Comment: Order Added by Discern Expert. Performed By: #### 2 816060, 20149637, 00210265, 4045953, 5466387, 78071004, 01736832 ####[address] [place] [address] Monocytes/Leukocytes Auto (Bld) [Pure # fraction] 0.9 E9/L Normal 0.2-1.0 [facility] Comment on above: Order Comment: Order Added by Edmund Expert. Performed By: #### 2 453982, 38754194, 84302076, 6495989, 7772400, 14682950, 30607210 ####[address] [place] [address] Neutrophils/100 WBC (Bld) 70.6 % Normal 36.0-75.0 [facility] Comment on above: Order Comment: Order Added by Discern Expert. Performed By: #### 2 258508, 89863788, 00643322, 1579189, 8995141, 79144519, 44981097 ####[facility] [address] [place] [address] Neutrophils/Leukocytes Auto (Bld) [Pure # fraction] 6.7 E9/L Normal 2.0-7.5 [facility] Comment on above: Order Comment: Order Added by Discern Expert. Performed By: #### 2 378852, 52034709, 31287128, 0370246, 3664298, 32047647, 22880706 ####[facility] [address] [place] [address] BMPon 02-10-2023 Anion gap [Moles/Vol] 14 mmol/L Normal 6-16 [facility] Comment on above: Performed By: #### 2 666855, 12031816, 24703114, 1223180, 5693612, 23689180, 33003095 ####[facility] [address] [place] [address] BUN/Creat Ratio 12 No Units Normal 10-20 [facility] Comment on above: Performed By: #### 2 142456, 89096933, 96062939, 2077350, 7000482, 02159810, 80475825 ####[facility] [address] [place] [address] Calcium [Mass/Vol] 9.7 mg/dL Normal 8.9-11.1 [facility] Comment on above: Performed By: #### 2 131398, 84950207, 00795266, 7943963, 5955634, 73879009, 10725551 ####[facility] [address] [place] [address] Chloride [Moles/Vol] 107 mmol/L Normal 101-111 [facility] Comment on above: Performed By: #### 2 108276, 53117532, 25044162, 0752292, 9700872, 76671486, 18196816 ####[facility] [address] [place] [address] CO2 [Moles/Vol] 25 mmol/L Normal 21-31 [facility] Comment on above: Performed By: #### 2 056189, 26915377, 31074084, 2838885, 9522458, 60733324, 24307215 ####[facility] [address] [place] [address] Creatinine [Mass/Vol] 1.4 mg/dL High 0.5-1.3 [facility] Comment on above: Performed By: #### 2 313489, 07340165, 43963486, 8490256, 3859978, 03302581, 99868028 ####[facility] [address] [place] [address] Glucose [Mass/Vol] 84 mg/dL Normal 55-199 [facility] Comment on above: Performed By: #### 2 515189, 84634842, 50544577, 8216342, 5143214, 88956090, 63925252 ####[facility] [address] [place] [address] Potassium [Moles/Vol] 4.8 mmol/L Normal 3.5-5.3 [facility] Comment on above: Performed By: #### 2 599529, 44989864, 81456056, 7181567, 1434787, 35938115, 84221196 ####[facility] [address] [place] [address] Sodium [Moles/Vol] 141 mmol/L Normal 135-145 [facility] Comment on above: Performed By: #### 2 640836, 08537114, 70498471, 7945619, 1841730, 20872346, 53169503 ####[facility] [address] [place] [address] Urea nitrogen [Mass/Vol] 17 mg/dL Normal 5-21 [facility] Comment on above: Performed By: #### 2 007834, 46766957, 32456111, 4390543, 6377634, 32946533, 83050661 ####[facility] [address] [place] [address] BNPon 02-10-2023 Natriuretic peptide B (Bld) [Mass/Vol] 39 pg/mL Normal 5-80 [facility] Comment on above: Performed By: #### 2 873157, 20633484, 09669591, 5073532, 8756020, 38954680, 49547603 ####[facility] [address] [place] [address] CBC w/ Auto Diffon Erythrocyte distribution width (RBC) [Ratio] 14.4 % High 10.9-14.2 [facility] Comment on above: Performed By: #### 2 892900, 58699387, 36511240, 7149229, 0287794, 04436986, 08918619 ####[facility] [address] [place] [address] Hematocrit (Bld) [Volume fraction] 50.0 % High 34.0-46.0 [facility] Comment on above: Performed By: #### 2 036943, 45813033, 84040552, 9751711, 6226382, 69124902, 14872551 ####[facility] [address] [place] [address] Hemoglobin (Bld) [Mass/Vol] 16.8 g/dL High 12.0-16.0 [facility] Comment on above: Performed By: #### 2 892655, 90892239, 08749854, 3162176, 3541886, 36562879, 17442449 ####[facility] [address] [place] [address] MCH (RBC) [Entitic mass] 30.1 pg Normal 27.0-34.0 [facility] Comment on above: Performed By: #### 2 677491, 43075559, 20148950, 1774598, 2463165, 87528836, 10366784 ####[facility] [address] [place] [address] MCHC (RBC) [Mass/Vol] 33.7 g/dL Normal 31.4-36.0 [facility] Comment on above: Performed By: #### 2 130525, 75359754, 80261802, 9336518, 0998659, 41644950, 77741960 ####[facility] [address] [place] [address] MCV (RBC) [Entitic vol] 89.4 fL Normal 80.0-100.0 [facility] Comment on above: Performed By: #### 2 098393, 16972613, 92017342, 9016116, 9222848, 22424153, 31855514 ####[address] [address] Platelet mean volume (Bld) [Entitic vol] 8.0 fL Normal 6.4-10.8 [facility] Comment on above: Performed By: #### 2 580653, 71041967, 68025268, 7760945, 1318075, 77010372, 93881374 ####[address] [address] Platelets (Bld) [#/Vol] 202.0 E9/L Normal 150.0-500. 0 [facility] Comment on above: Performed By: #### 2 426220, 49558317, 74472492, 7214593, 2841056, 65238277, 63352887 ####[address] [address] RBC (Bld) [#/Vol] 5.6 E12/L Normal 4.3-5.9 [facility] Comment on above: Performed By: #### 2 078430, 12560628, 09403736, 7950434, 0332820, 74247954, 84174289 ####[facility] [address] [place] [address] WBC corrected for nucl RBC Auto (Bld) [#/Vol] 9.4 E9/L Normal 4.0-11.0 [facility] Comment on above: Performed By: #### 2 475744, 21942873, 71022549, 5597868, 8218244, 31279453, 20439479 ####[facility] [address] [place] [address] CHEMISTRYOrdered By: SYSTEM SYSTEM on 02-10-2023 Anion [...] 39 pg/mL Normal 5 - 80 pg/mL [facility] HemeLebanonSS COAGULATIONOrdered By: Veronica Guidry on 02-10-2023 aPTT Coag (PPP) [Time] 29.2 s Normal 25.1 - 36.5 second(s) [facility] Auto Coag Comment [...] the same coagulation reagent and instrumentation as [facility]. Currently there are no coagulation studies available worldwide for children to 14 days, and no normal ranges. Heparin therapeutic range (represented by Anti-Factor Xa activity of 0.2 - 0.4 U/mL) corresponds to PTT of 56.6 - 109.0 sec. INR Coag (PPP) [Relative time] 1.0 {INR} Invalid Interpretation Code [facility] Auto Coag Comment on above: Interpretive Data: I NR results are specifically intended to assess patients stabilized on long-term Anticoagulation therapy suggested INR s Less Intensive Anticoagulation 2.0 3.0 Conventional Range 3.0 4.5 PT Coag (PPP) [Time] 11.6 s Normal 9.4 - 1 2.5 second(s) [facility] Auto Coag Comment [...] the same coagulation reagent and instrumentation as [facility]. Currently there are no coagulation studies available worldwide for children to 14 days, and no normal ranges. Consent for Treatmenton 01-19 Consent for Treatment [id number] Normal [facility] Discharge Instructionson Discharge Instructions [id number] F Normal [facility] ED Clinical Summaryon 2022 ED Clinical Summary (Inserted Image. Neelam ble to display) [address] [place] [id number] ED Clinical Summary Person Information Name: DEYSI HERNANDEZ Trav/[facility] Age: 62 Years : 1960 Sex: Female Language: Vincentian PCP: SHAIKH THOMPSON MD Marital Status: Visit [...] 02/10/2023 17:12:09 02/10/2023 17:12:09 ADDRESS: [address] [facility] [id number] PHYS DOC NOTES: MEDICAL INFORMATION: Prescriptions Given: New Medications [facility]/pharmacy #[id number], [address] [place], [place] [id number], [phone] cefdinir (cefdinir 300 mg Cap) 1 Capsules [...] Tablets By Mouth every day. Misc Prescription ([facility] ASPIRIN EC 81 MG TABLET) 0. omeprazole (omeprazole 40 mg Cap-DR) 1 Capsules By Mouth every day. Refills: 2. PATIENT EDUCATION INFORMATION: Instructions: Urinary Tract Infection, Adult, Tlfl-lf-Vxkq; Acute Bronchitis, Adult Follow up: With: Address: When: SHAIKH DONNA [address] [place], [place] [phone] Business (1) In 3 days 02/13/2023 Comments: Follow-up with your primary care provider in 3 to 5 days. If symptoms worsen, do not improve, or new symptoms arise please report back to emergency department for further evaluation. DIAGNOSIS: Bronchitis; UTI (urinary tract infection) Normal [facility] ED Note-Nursingon 02-10-2023 ED Note-Nursing EKG late due to vanessa ent being in the bathroom when called. Normal [facility] ED Note-Physicianon 02-11-20 ED Note-Physician Basic [...] antibiotics were not prescribed or dispensed today.[[facility] PERFORMANCE] [] The patient has [...] (N39.0: Urin (more content not included)... Normal [facility] Comment on above: Result Comment: Elec [...] these instructions at home: Medicines ? Take rpzc-nxs-ncefdpd and prescription medicines only as told by [...] provider. Document Revised: 09/16/2020 Document Reviewed: 09/16/2020 [employer] Patient Education ? 2022 C2FO. Pulmonary Medicine Acute Bronchitis, Adult Acute bronchitis [...] The f (more content not included)... Normal [facility] ED Patient Summaryon 023 ED Patient Summary (Inserted Image. Neelam ble to display) [place] [id number] Patient Discharge Instructions Person Information Name: DEYSI HERNANDEZ Age: 62 Years Arrival Date: 02/10/2023 14:37:39 Discharge Diagnosis: Bronchitis; UTI (urinary tract infection) Primary Care Physician: SHAIKH THOMPSON MD Provider Information Primary Provider: Gabby De Oliveira M.D. Advanced Crabber:None The exam and treatment you received in the Emergency Department were for an urgent problem and are not intended as complete care. It is important that you follow up with a doctor, nurse practitioner, or physician?s contact lens assistant for ongoing care. If your symptoms [...] With: Address: When: SHAIKH DONNA [address] [place], [place] [phone] Business (1) In 3 days 02/13/2023 Comments: [...] Patient Education Materials: Urinary Tract Infection, Adult, Sbal-kt-Wupx; Acute Bronchitis, Adult A MESSAGE TO ALL PATIENTS REGARDING OPIOIDS PRESCRIPTION OPIOIDS: WHAT YOU NEED TO KNOW Prescription opioids can be used to help relieve mmaxtzgq-mp-xeafwy pain and are often prescribed following a [...] Visit www.cdc.gov/ (more content not included)... Normal [facility] Family Medicine Office/Clini c Branon 02-10-2023 [...] send her to the emergency department at [facility]. She was offered EMS transfer but [...] hurt by (more content not included)... Normal [facility] Comment on above: Result Comment: Elec [...] 33.7 g/dL Normal 31.4 - 36.0 gm/dL [facility] HemeAutoSS MCV (RBC) [Entitic vol] 89.4 fL Normal 80.0 - 100.0 fL [facility] HemeAutoSS Platelet mean volume (Bld) [Entitic vol] 8.0 fL Normal 6.4 - 10.8 fL [facility] HemeAutoSS Platelets (Bld) [#/Vol] 202.0 E9/L Normal 150.0 - 500.0 E9/L [facility] HemeAutoSS RBC (Bld) [#/Vol] 5.6 E12/L Normal 4.3 - 5.9 E12/L [facility] HemeAutoSS WBC corrected for nucl RBC Auto (Bld) [#/Vol] 9.4 E9/L Normal 4.0 - 11.0 E9/L [facility] HemeAutoSS Influenza A&B Agon Influenzae A Ag Negative Normal Negative [facility] Comment on above: Performed By: #### 1 0158786, [id number] ####[facility] [address] [place] [address] Influenzae B Ag Negative Normal Negative [facility] Comment on above: Result Comment: Test sensitivity and specificity vary for age group, specimen type, antigen types, and prevalence of disease. Test results must be evaluated in conjunction with other clinical data available to the physician. Individuals who received nasally administered Influenza A vaccine may have positive test results up to 3 days after vaccination. Performed By: #### 1 6101001, [id number] ####[facility] [address] [place] [address] MICRO OTHER TESTSOrdered By: Trudy Guidry on 02-10-2023 Influenzae A Ag Negative (02/10/23 3:25 PM) Normal Negative [facility] Man Sero Influenzae B Ag Negative 1 (02/10/23 3:25 PM) Normal Negative [facility] Man Sero Comment [...] Comment on above: Interpretive Data: [employer] Veritor System for Rapid Detection of SARS-CoV-2 [...] Coag (PPP) [Time] 29.2 second(s) Normal 25.1-36.5 [facility] Comment on above: Result Comment: Para [...] the same coagulation reagent and instrumentation as [facility]. Currently there are no coagulation studies available worldwide for children to 14 days, and no normal ranges. Heparin therapeutic range (represented by Anti-Factor Xa activity of 0.2 - 0.4 U/mL) corresponds to PTT of 56.6 - 109.0 sec. Performed By: #### 2 328730, 23323793, 31841169, 5563645, 8404365, 12468094, 33562863 ####[facility] [address] [place] [address] INR Coag (PPP) [Relative time] 1.0 {INR} Invalid Interpretation Code [facility] Comment on above: Result Comment: INR results are specifically intended to assess patients stabilized on long-term Anticoagulation therapy suggested INR?s ?Less Intensive Anticoagulation? 2.0 ? 3.0 Conventional Range 3.0 ? 4.5 Performed By: #### 2 224123, 53796801, 07410027, 6853501, 4290622, 95679049, 16809369 ####[facility] [address] [place] [address] PT Coag (PPP) [Time] 11.6 second(s) Normal 9.4-12.5 [facility] Comment on above: Result Comment: 15 [...] the same coagulation reagent and instrumentation as [facility]. Currently there are no coagulation studies available worldwide for children to 14 days, and no normal ranges. Performed By: #### 2 594807, 58536749, 60599964, 5995991, 0211403, 68316525, 45574099 ####[facility] [address] [place] [address] Rapid COVID Antigen ([facility])on 02-10-2023 Rapid COV Int NEG Ctl Pass Normal Fis [facility] Comment on above: Performed By: #### 1 5466478, [id number] ####[facility] [address] [place] [address] Rapid COV Int POS Ctl Pass Normal [facility] Comment on above: Performed By: #### 1 6426629, [id number] ####[address] [place] [address] SARS-CoV+SARS-CoV-2 (COVID-19) Ag IA.rapid Ql (Resp) Not detected Normal Not Detected [facility] Comment on above: Result Comment: [employer] Veritor? System for Rapid Detection of SARS-CoV-2 [...] or revoked sooner. Performed By: #### 1 4771664, [id number] ####[address] [place] [address] Troponin 0 Hr.on 02-10-2023 Troponin 5.80 pg/mL Low 10.10-27.1 0 [facility] Comment on above: Result Comment: The 95% CI (Confidence Interval) PPV (Positive Predictive Value) for myocardial infarction in females is 38 pg/mL, in males 51 pg/mL. The results should be used in conjunction with clinical conditions of myocardial infarction. (Access High Sensitivity Troponin I Instructions For Use, Kavita Ton, September 2017) Performed By: #### 2 930467, 93429598, 18252996, 3864199, 1902502, 88413537, 31253128 ####[facility] [address] [place] [address] XR Chest Single Viewon 02-10 XR Chest [...] mGy = na DAP = na Normal [facility] eGFRon 02-10-2023 eGFR 43 mL/min/1.73 m2 Low >=59 [facility] Comment on above: Order Comment: Order added by Discern Expert. Performed By: #### 2 119511, 15827600, 24608819, 0034442, 6903191, 46460788, 20762037 ####[facility] [address] [place] [address] [facility] 10-26-2022 [facility] Telephone (MICHAEL) ----- DEYSI HERNANDEZ ([id number]) 1960 F Date Time Provider Department [facility] your visit today, we recorded [...] question. I will also send her a [employer] message encouraging communicate via [employer] if needed. Debra Fishman MD Staff, Department of Kidney Medicine 10/26/22 5:49 PM Allergies As of Date: 10/26/2022 Noted Allergy Reaction CODEINE 09/07/2014 7 - Swelling Date Reviewed: 10/09/2022 Reviewed by: Rosie Harris DO - Fully Assessed Reason for Visit: Patient Question [2117] Prescriptions as of 10/26/2022 - lisinopril (ZESTRIL) [...] Encounter Status:Closed by DEBRA FISHMAN on 10/26/22 [facility] Lizbet 10-25-2022 CNPN Telephone (AARON) ----- DEYSI HERNANDEZ ([id number]) 1960 F Date Time Provider Department 10/25/22 DEBRA FISHMAN During your visit today, we recorded the following information about you: Linn Solis Ma 10/25/2022 12:36 PM Signed Patient called the office very upset because today at here appointment with Kidney Medicine she was seen by another provider and it wasn't her kidney doctor. She would like Dr. Fishman call her back at [phone] because she has lots of questions that [...] Fully Assessed Reason for Visit: Patient Question [5287] Prescriptions as of 10/25/2022 - lisinopril (ZESTRIL) [...] Status:Closed by LINN SOLIS MA on 10/25/22 [facility] Lizbet 10-11-2022 NATALIIA Telephone (WIQ) ----- DEYSI HERNANDEZ ([id number]) 1960 F Date Time Provider Department 10/11/22 CATHIE MOORE During your visit today, we recorded the following information about you: Cathie Moore, [facility] ED 10/11/2022 12:57 PM Signed Smoking Cessation Navigation Outcome of contact: Left Message Comments: A voicemail has been left for this patient regarding Tobacco Cessation support options. If this patient has any further questions they can email us at or call us at [phone]. [employer] C[employer] Rn/Smoking Cessation Navigator: [facility] Allergies As of Date: 10/11/2022 [...] Status:Closed by CATHIE MOORE on 10/11/22 Normal [facility] CNOVon 10-09-2022 CNOV Office Visit (CALIMMHussein ) ----- DEYSI HERNANDEZ ([id number]) 1960 F Date Time Provider Department 10/09/22 2:00 PM GURMEET OJEDA During your visit today, we recorded the following information about you: Temperature Pulse Blood pressure Weight 97.5 degrees 60/minute 91/60 71.3 kg Height 1.575 m Rosie Harris DO 10/09/2022 5:08 PM Signed [facility] NEPHROLOGY AND HYPERTENSION [facility] SERVICE DATE: [...] on metoprol (more content not included)... Normal [facility] URINALYSIS, REFLEX MICROSCOP ICon 10-09-2022 Bacteria LM.HPF (Urine sed) [#/Area] Few Abnormal None Seen [facility] Comment on above: Order Comment: Speci men Type: URINE SPECIMEN Ordering Facility: [facility] Address: [address] [address] Performed By: #### L [id number] #### [facility] CLIA [id number] [address] [place] [address] [place] Bilirubin Ql (U) Negative Normal [facility] Comment on above: Order Comment: Speci men Type: URINE SPECIMEN Ordering Facility: [facility] Address: [address] [address] Performed By: #### L [id number] #### [facility] CLIA [id number] [facility] [place] [address] [place] Clarity (Unsp spec) Cloudy Abnormal Clear [facility] Comment on above: Order Comment: Speci men Type: URINE SPECIMEN Ordering Facility: [facility] Address: [address] [place] [address] Performed By: #### L [id number] #### [facility] CLIA [id number] [address] [place] [address] [place] Color (U) Light Yellow Normal Yellow [facility] Comment on above: Order Comment: Speci men Type: URINE SPECIMEN Ordering Facility: [facility] Address: [address] [place] [address] Performed By: #### L [id number] #### [facility] CLIA [id number] [address] [place] [address] [place] Epithelial cells LM.HPF (Urine sed) [#/Area] Few Normal [facility] Comment on above: Order Comment: Speci men Type: URINE SPECIMEN Ordering Facility: [facility] Address: [address] [place] [address] Performed By: #### L [id number] #### [facility] CLIA [id number] [address] [place] [address] [place] Glucose Test strip (U) [Mass/Vol] Negative Normal Trace, Negative [facility] Comment on above: Order Comment: Speci men Type: URINE SPECIMEN Ordering Facility: [facility] Address: [address] [place] [address] Performed By: #### L [id number] #### [facility] CLIA [id number] [address] [id number] [place] Hemoglobin Ql (U) Trace Normal Negative, Trace [facility] Comment on above: Order Comment: Speci men Type: URINE SPECIMEN Ordering Facility: [facility] Address: [address] [place] [address] Performed By: #### L [id number] #### [facility] CLIA [id number] [address] [place] [address] [place] Ketones Ql (U) Negative Normal Negative, Trace [facility] Comment on above: Order Comment: Speci men Type: URINE SPECIMEN Ordering Facility: [facility] Address: [address] [place] [address] Performed By: #### L [id number] #### [facility] CLIA [id number] [address] [place] [address] [place] Leukocyte esterase Test strip Ql (U) 250 Bonnie/uL Abnormal Negative, 25 Bonnie/uL [facility] Comment on above: Order Comment: Speci men Type: URINE SPECIMEN Ordering Facility: [facility] Address: [address] [place] [address] Performed By: #### L [id number] #### [facility] CLIA [id number] [address] [place] [address] [place] Nitrite Ql (U) 2+ Abnormal Negative [facility] Comment on above: Order Comment: Speci men Type: URINE SPECIMEN Ordering Facility: [facility] Address: [address] [place], [place] [address] Performed By: #### L [id number] #### [facility] CLIA [id number] [address] [place] [address] [place] pH (U) 5.5 [pH] Normal 5.0-8.0 [facility] Comment on above: Order Comment: Speci men Type: URINE SPECIMEN Ordering Facility: [facility] Address: [address] [place], [place] [address] Performed By: #### L [id number] #### [facility] CLIA [id number] [address] [place] [address] [place] Protein (U) [Mass/Vol] Negative Normal Trace , Negative [facility] Comment on above: Order Comment: Speci men Type: URINE SPECIMEN Ordering Facility: [facility] Address: [address] [place], [place] [address] Performed By: #### L [id number] #### [facility] CLIA [id number] [address] [place] [address] [place] RBC LM.HPF (Urine sed) [#/Area] 0-3 /HPF Normal 0-3 /HPF [facility] Comment on above: Order Comment: Speci men Type: URINE SPECIMEN Ordering Facility: [facility] Address: [address] [place], [place] [address] Performed By: #### L [id number] #### [facility] CLIA [id number] [address] [place] [address] [place] Specific gravity (U) [Rel density] 1.015 Normal 1.005-1.03 0 [facility] Comment on above: Order Comment: Speci men Type: URINE SPECIMEN Ordering Facility: [facility] Address: [address] [place] [address] Performed By: #### L [id number] #### [facility] CLIA [id number] [address] [place] [address] [place] Urobilinogen Ql (U) Negative Normal Negative [facility] Comment on above: Order Comment: Speci men Type: URINE SPECIMEN Ordering Facility: [facility] Address: [address] [place] [address] Performed By: #### L [id number] #### [facility] CLIA [id number] [address] [place] [address] [place] WBC LM.HPF (Urine sed) [#/Area] /[HPF] Abnormal 0-5 /HPF [facility] Comment on above: Order Comment: Speci men Type: URINE SPECIMEN Ordering Facility: [facility] Address: [address] [place], [place] [address] Performed By: #### L [id number] #### [facility] CLIA [id number] [address] [place] [address] [place] Bacteria LM.HPF (Urine sed) [#/Area] Few Abnormal None Seen /HPF [facility] Bilirubin Ql (U) Negative Negative [facility] Clarity (Unsp spec) Cloudy Abnormal Clear [facility] Color (U) Light Yellow Yellow [facility] Epithelial cells LM.HPF (Urine sed) [#/Area] Few [facility] Glucose Test strip (U) [Mass/Vol] Negative Trace, Negative [facility] Hemoglobin Ql (U) Trace Negative, Trace [facility] Ketones Ql (U) Negative Negative, Trace [facility] Leukocyte esterase Test strip Ql (U) 250 Bonnie/uL Abnormal Negative, 25 Bonnie/uL [facility] Nitrite Ql (U) 2+ Abnormal Negative [facility] pH (U) 5.5 [pH] 5.0 - 8.0 [facility] Protein (U) [Mass/Vol] Negative Trace , Negative [facility] RBC LM.HPF (Urine sed) [#/Area] 0-3 /HPF 0-3 /HPF [facility] Specific gravity (U) [Rel density] 1.015 1.005 - 1.030 [facility] Urobilinogen Ql (U) Negative Negative [facility] WBC LM.HPF (Urine sed) [#/Area] /[HPF] Abnormal 0-5 /HPF [facility] 25(OH)D3 [facility] 2022 25-hydroxyvitamin D3 [Mass/Vol] 34.5 ng/mL Normal 31.0-80.0 [facility] Comment on above: Order Comment: Speci men Type: BLOOD SPECIMEN Ordering Facility: [facility] Address: [address] [place], [place] [address] Result Comment: Clas sification of 25 [place] Vitamin D status: Deficiency/Insufficiency: < or = 30 ng/ml. Sufficiency/Optimal Levels: 31-80 ng/mL Toxicity: > 100 ng/mL. Test performed by chemiluminescent immunoassay. Performed By: #### 1 989-3 #### [facility] CLIA [id number] [address] [facility] [place] [address] [place] IMMUNOFIXATION SCREEN, SERUM on 08-23-2022 MPA RESULT No M protein is identified. Normal No M protein is identified . [facility] Comment on above: Order Comment: Speci men Type: BLOOD SPECIMEN Ordering Facility: [facility] Address: [address] Performed By: #### I FESC #### [facility] CLIA [id number] [address] [place] [address] STAFF REVIEW (MPA) Reviewed by Cortes Alfredo MD, Ph.D ([id number]) [facility] Comment on above: Order Comment: Speci men Type: BLOOD SPECIMEN Ordering Facility: [facility] Address: [address] Performed By: #### I FES #### [facility] CLIA [id number] [address] [place] [address] [place] IMMUNOGLOBULINS GAMon 2022 IgA [Mass/Vol] 218 mg/dL Normal 70-400 [facility] Comment on above: Order Comment: Speci men Type: BLOOD SPECIMEN Ordering Facility: [facility] Address: [address] Performed By: #### S ERIMM #### [facility] CLIA [id number] [address] [place] [address] [place] IgG [Mass/Vol] 775 mg/dL Normal 700-1600 [facility] Comment on above: Order Comment: Speci men Type: BLOOD SPECIMEN Ordering Facility: [facility] Address: [address] Performed By: #### S ERIMM #### [facility] CLIA [id number] [address] [place] [address] [place] IgM [Mass/Vol] 129 mg/dL Normal 40-230 [facility] Comment on above: Order Comment: Speci men Type: BLOOD SPECIMEN Ordering Facility: [facility] Address: [address] Performed By: #### S ERIMM #### [facility] CLIA [id number] [address] [place] KAPPA/THAO,FREE,SERon 2022 Immunoglobulin light chains.kappa.free (S) [Mass/Vol] 26.1 mg/L High 3.3-19.4 [facility] Comment on above: Order Comment: Carmen juarez Type: BLOOD SPECIMEN Ordering Facility: [facility] Address: [address] [place] [address] Result Comment: Rare ly, increased serum free light chains levels may not be detected or accurately quantified due to prozone phenomenon or in high viscosity samples using this immunoturbidimetric assay. Correlation with other laboratory results and clinical findings is recommended. The [place] Free Light Chain was performed using the Binding Site Optilite immunoturbidimetric method. Result obtained with different assay methods or kits cannot be used interchangeably. Performed By: #### K LFRS #### [facility] CLIA [id number] [address] [place] [address] [place] Immunoglobulin light chains.kappa/Immunoglo bulin light chains.lambda (S) [Mass ratio] 1.01 Normal 0.26-1.65 [facility] Comment on above: Order Comment: Carmen larry Type: BLOOD SPECIMEN Ordering Facility: [facility] Address: [address] [place] [address] Performed By: #### K LFRS #### [facility] CLIA [id number] [address] [place] [address] [place] [facility] [place] Immunoglobulin light chains.lambda.free [Mass/Vol] 25.9 mg/L Normal 5.7-26.3 [facility] Comment on above: Order Comment: Carmen larry Type: BLOOD SPECIMEN Ordering Facility: [facility] Address: [address] [place] [address] Result Comment: Rare ly, increased serum free [...] interchangeably. Performed By: #### K LFRS #### [facility] CLIA [id number] [address] [facility] [id number] [address] [place] Renal function 2000 panelon 08-23-2022 Albumin [Mass/Vol] 4.3 g/dL Normal 3.9-4.9 [facility] Comment on above: Order Comment: Speci men Type: BLOOD SPECIMEN Ordering Facility: [facility] Address: [address] [address] Performed By: #### 2 4362-6 #### [facility] CLIA [id number] [address] [id number] [place] Anion gap [Moles/Vol] 9 mmol/L Normal 9-18 [facility] Comment on above: Order Comment: Speci men Type: BLOOD SPECIMEN Ordering Facility: [facility] Address: [address] [address] Performed By: #### 2 4362-6 #### [facility] IA [id number] [address] [place] [address] [place] Calcium [Mass/Vol] 9.9 mg/dL Normal 8.5-10.2 [facility] Comment on above: Order Comment: Speci men Type: BLOOD SPECIMEN Ordering Facility: [facility] Address: [address] [address] Performed By: #### 2 4362-6 #### [facility] CLIA [id number] [address] [place] [address] [place] Chloride [Moles/Vol] 105 mmol/L Normal 97-105 [facility] Comment on above: Order Comment: Speci men Type: BLOOD SPECIMEN Ordering Facility: [facility] Address: [address] [address] Performed By: #### 2 4362-6 #### [facility] IA [id number] [address] [place] [address] [place] CO2 [Moles/Vol] 25 mmol/L Normal 22-30 [facility] Comment on above: Order Comment: Carmen larry Type: BLOOD SPECIMEN Ordering Facility: [facility] Address: [address] [address] Performed By: #### 2 4362-6 #### [facility] CLIA [id number] [address] [place] [address] [place] Creatinine [Mass/Vol] 1.42 mg/dL High 0.58-0.96 [facility] Comment on above: Order Comment: Carmen [facility] Type: BLOOD SPECIMEN Ordering Facility: [facility] Address: [address] [address] Performed By: #### 2 4362-6 #### [facility] CLIA [id number] [address] [place], [place] [id number] [place] [address] [place] ESTIMATED GLOMERULAR FILTRATION RATE 42 mL/min/1.73m??? Low >=60 [facility] Comment on above: Order Comment: Carmen [facility] Type: BLOOD SPECIMEN Ordering Facility: [facility] Address: [address] [address] Result Comment: Jody mated Glomerular Filtration Rate [...] 2 4362-6 #### [facility] CLIA [id number] [address] [place] Glucose [Mass/Vol] 70 mg/dL Low 74-[address] [facility] Comment on above: Order Comment: Carmen [facility] Type: BLOOD SPECIMEN Ordering Facility: [facility] Address: [address] [address] Result Comment: The [place] Diabetes Association (ADA) provides guidance for cutoff [...] Standards of Medical Care in Diabetes 2016, [place] Diabetes Association. Diabetes Care. 2016.39(Suppl 1). Performed By: #### 2 4362-6 #### [facility] IA [id number] [address] [place] [address] [place] Phosphate [Mass/Vol] 2.5 mg/dL Low 2.7-4.8 [facility] Comment on above: Order Comment: Marioi larry Type: BLOOD SPECIMEN Ordering Facility: [facility] Address: [address] [place] [address] Performed By: #### 2 4362-6 #### [facility] IA [id number] [place] [address] [place] Potassium [Moles/Vol] 4.8 mmol/L Normal 3.7-5.1 [facility] Comment on above: Order Comment: Marioi larry Type: BLOOD SPECIMEN Ordering Facility: [facility] Address: [address] [place] [address] Performed By: #### 2 4362-6 #### [facility] IA [id number] [place] [address] [place] Sodium [Moles/Vol] 139 mmol/L Normal 136-144 [facility] Comment on above: Order Comment: Speci men Type: BLOOD SPECIMEN Ordering Facility: [facility] Address: [address] [place] [address] Performed By: #### 2 4362-6 #### [facility] IA [id number] [place] [address] [place] Urea nitrogen [Mass/Vol] 18 mg/dL Normal 7-21 [facility] Comment on above: Order Comment: Speci men Type: BLOOD SPECIMEN Ordering Facility: [facility] Address: [address] [place] [address] Performed By: #### 2 4362-6 #### [facility] CLIA [id number] [address] [facility] [place] [address] [place] [facility] US KIDNEY/BLADDERon 08-24-19 23 US KIDNEY/BLADDER * * *Final Report* * * DATE OF EXAM: Aug 23 2022 2:15PM [facility] 1055 - US KIDNEY/BLADDER / PROCEDURE [...] residual bladder volume 4. Right renal cyst Associate Engineer: PSCB Transcribe Date/Time: Aug 28 2022 8:25A Dictated by : ALEAH QUINN MD This examination was interpreted and the report reviewed and electronically signed by: ALEAH QUINN MD on Aug 28 2022 8:28AM EST [id number] Normal [facility] CNOVon 08-09-2022 CNOV Office Visit (KIDMMN ) ----- DEYSI HERNANDEZ ([id number]) 1960 F Date Time Provider Department 08/09/22 3:00 PM GURMEET OJEDA ELPIDIO During your visit today, we recorded the following information about you: Temperature Pulse Blood pressure Weight 97.7 degrees 65/minute 98/64 72.5 kg Height 1.575 m Debra Fishman MD 08/09/2022 7:02 PM Signed [facility]YPERTENSION [facility] SERVICE DATE: [...] Normal mo (more content not included)... Normal [facility] URINALYSIS, REFLEX MICROSCOP ICon 08-09-2022 Bilirubin Ql (U) Negative Normal Negative [facility] Comment on above: Order Comment: Speci men Type: URINE SPECIMEN Ordering Facility: [facility] Address: [address] [address] Performed By: #### L [id number] #### [facility] CLIA [id number] [address] [place] [address] [place] Clarity (Unsp spec) Clear Normal Clear [facility] Comment on above: Order Comment: Speci men Type: URINE SPECIMEN Ordering Facility: [facility] Address: [address] [address] Performed By: #### L [id number] #### [facility] CLIA [id number] [address] [place] [address] [place] Color (U) Light Yellow Normal Yellow [facility] Comment on above: Order Comment: Speci men Type: URINE SPECIMEN Ordering Facility: [facility] Address: [address] [address] Performed By: #### L [id number] #### [facility] CLIA [id number] [address] [place] Glucose Test strip (U) [Mass/Vol] Negative Normal Trace, Negative [facility] Comment on above: Order Comment: Speci men Type: URINE SPECIMEN Ordering Facility: [facility] Address: [address] [address] Performed By: #### L [id number] #### [facility] CLIA [id number] [address] [place] [address] [place] Hemoglobin Ql (U) Negative Normal Negative, Trace [facility] Comment on above: Order Comment: Speci men Type: URINE SPECIMEN Ordering Facility: [facility] Address: [address] Performed By: #### L [id number] #### [facility] CLIA [id number] [address] [place] Ketones Ql (U) Negative Normal Negative, Trace [facility] Comment on above: Order Comment: Speci men Type: URINE SPECIMEN Ordering Facility: [facility] Address: [address] Performed By: #### L [id number] #### [facility] CLIA [id number] [address] [place] Leukocyte esterase Test strip Ql (U) 75 Bonnie/uL Abnormal Negative, 25 Bonnie/uL [facility] Comment on above: Order Comment: Speci men Type: URINE SPECIMEN Ordering Facility: [facility] Address: [address] [place] [address] Performed By: #### L [id number] #### [facility] CLIA [id number] [address] [place] [address] [place] Nitrite Ql (U) Negative Normal Negative [facility] Comment on above: Order Comment: Speci men Type: URINE SPECIMEN Ordering Facility: [facility] Address: [address] Performed By: #### L [id number] #### [facility] CLIA [id number] [address] [place] [address] [place] pH (U) 6.0 [pH] Normal 5.0-8.0 [facility] Comment on above: Order Comment: Speci men Type: URINE SPECIMEN Ordering Facility: [facility] Address: [address] [place] [address] Performed By: #### L [id number] #### [facility] CLIA [id number] [address] [place] [address] [place] Protein (U) [Mass/Vol] Negative Normal Trace , Negative [facility] Comment on above: Order Comment: Speci men Type: URINE SPECIMEN Ordering Facility: [facility] Address: [address] [place] [address] Performed By: #### L [id number] #### [facility] CLIA [id number] [address] [place] [address] [place] Specific gravity (U) [Rel density] 1.009 Normal 1.005-1.03 0 [facility] Comment on above: Order Comment: Speci men Type: URINE SPECIMEN Ordering Facility: [facility] Address: [address] [place] [address] Performed By: #### L [id number] #### [facility] CLIA [id number] [address] [place] [address] [place] Urobilinogen Ql (U) Negative Normal Negative [facility] Comment on above: Order Comment: Speci men Type: URINE SPECIMEN Ordering Facility: [facility] Address: [address] [place] [address] Performed By: #### L [id number] #### [facility] CLIA [id number] [address] [place] [address] [place] Bilirubin Ql (U) Negative Negative [facility] Clarity (Unsp spec) Clear Clear [facility] Color (U) Light Yellow Yellow [facility] Glucose Test strip (U) [Mass/Vol] Negative Trace, Negative [facility] Hemoglobin Ql (U) Negative Negative, Trace [facility] Ketones Ql (U) Negative Negative, Trace [facility] Leukocyte esterase Test strip Ql (U) 75 Bonnie/uL Abnormal Negative, 25 Bonnie/uL [facility] Nitrite Ql (U) Negative Negative [facility] pH (U) 6.0 [pH] 5.0 - 8.0 [facility] Protein (U) [Mass/Vol] Negative Trace , Negative [facility] Specific gravity (U) [Rel density] 1.009 1.005 - 1.030 [facility] Urobilinogen Ql (U) Negative Negative [facility] LIPID PROFILEon 06-12-2022 CHOL-HDL RATIO NORM SEE BELOW Normal [facility] Comment on above: Result Comment: 3.3 - 4.4 LOW RISK 4.4 - 7.1 AVERAGE RISK 7.1 - 11.0 MODERATE RISK >11.0 HIGH RISK Performed By: #### L IPID, BMP #### [facility] [address] [place] [address] Dr. Moreno Amato Cholesterol [Mass/Vol] 178 mg/dL Normal <=200 [facility] Comment on above: Performed By: #### L IPID, BMP #### [facility] [address] [place] [address] Dr. Moreno Amato Cholesterol in HDL [Mass/Vol] 39 mg/dL Critically low 40-60 [facility] Comment on above: Performed By: #### L IPID, BMP #### [facility] [address] [address] [address] Moreno Amato Cholesterol in LDL [Mass/Vol] 92.0 mg/dL Normal [facility] Comment on above: Performed By: #### L IPID, BMP #### [facility] [address] [address] [address] Moreno Amato Cholesterol.total/Chol esterol in HDL [Mass ratio] 4.6 {ratio} Normal [facility] Comment on above: Performed By: #### L IPID, BMP #### [facility] [address] [address] [address] Moreno Amato HDL NORMAL > or = 60 mg/dl - LO W CARDIOVASCULAR RISK <40 mg/dl - HIGH CARDIOVASCULAR RISK Normal [facility] Comment on above: Performed By: #### L IPID, BMP #### [facility] [address] [address] [address] Moreno Amato LDL CALC NORMAL SEE BELOW Normal [facility] Comment on above: Result Comment: <100 mg/dl OPTIMAL 100 - 129 mg/dl NEAR OR ABOVE OPTIMAL 130 - 159 mg/dl BORDERLINE HIGH 160 - 189 mg/dl HIGH >190 mg/dl VERY HIGH Performed By: #### L IPID, BMP #### [facility] [address] [address] [address] Moreno Amato Triglyceride [Mass/Vol] 235 mg/dL Critically high <=150 [facility] Comment on above: Performed By: #### L IPID, BMP #### [facility] [address] [address] [address] Moreno Amato VLDL CALC 47.0 mg/dL Normal [facility] Comment on above: Performed By: #### L IPID, BMP #### [facility] [address] [address] [address] Moreno Amato PROF CHEM 8 (BAS METB)on Anion gap [Moles/Vol] 10.7 mmol/L Normal [facility] Comment on above: Performed By: #### L IPID, BMP #### [facility] [address] [address] [address] Moreno Amato Calcium [Mass/Vol] 9.6 mg/dL Normal 8.5-10.1 [facility] Comment on above: Performed By: #### L IPID, BMP #### [facility] [address] [place] [address] Dr. Moreno Amato Chloride [Moles/Vol] 104 mmol/L Normal 98-107 [facility] Comment on above: Performed By: #### L IPID, BMP #### [facility] [address] [address] [address] Moreno Amato CO2 [Moles/Vol] 31.6 mmol/L Normal 21.0-32.0 [facility] Comment on above: Performed By: #### L IPID, BMP #### [facility] [address] [place] [address] Dr. Moreno Amato Creatinine [Mass/Vol] 1.58 mg/dL Critically high 0.55-1.02 [facility] Comment on above: Performed By: #### L IPID, BMP #### [facility] [address] [place] [address] Dr. Moreno Amato EGFR-AF KENYAN 40 mL/min/1.73m2 Critically low >=60 [facility] Comment on above: Performed By: #### L IPID, BMP #### [facility] [address] [place] [address] Dr. Moreno Amato EGFR-NON AF KENYAN 33 mL/min/1.73m2 Critically low >=60 [facility] Comment on above: Performed By: #### L IPID, BMP #### [facility] [address] [place] [address] Dr. Moreno Amato Glucose [Mass/Vol] 79 mg/dL Normal 74-106 [facility] Comment on above: Performed By: #### L IPID, BMP #### [facility] [address] [place] [address] Dr. Moreno Amato Potassium [Moles/Vol] 4.3 mmol/L Normal 3.5-5.1 [facility] Comment on above: Performed By: #### L IPID, BMP #### [facility] [address] [place] [address] Dr. Moreno Amato Sodium [Moles/Vol] 142 mmol/L Normal 136-145 [facility] Comment on above: Performed By: #### L IPID, BMP #### [facility] [address] [place] [address] Dr. Moreno Amato Urea nitrogen [Mass/Vol] 21.0 mg/dL Critically high 7.0-18.0 [facility] Comment on above: Performed By: #### L IPID, BMP #### [facility] [address] [place] [address] Dr. Moreno Amato Urea nitrogen/Creatinine [Mass ratio] 13.3 mg/mg Normal [facility] Comment on above: Performed By: #### L IPID, BMP #### [facility] [address] [place] [address] Dr. Moreno Amato URINE T PROTEIN CREAT RATIOo n 06-12-2022 Protein (U) [Mass/Vol] 8.8 mg/dL Normal <=12.0 [facility] Comment on above: Performed By: #### A MY, CMP, LIPA #### [facility] [address] [place] [address] Dr. Moreno Amato UR PROT CREAT RAT 0.12 Normal [facility] Comment on above: Performed By: #### A MY, CMP, LIPA #### [facility] [address] [place] [address] Dr. Moreno Amato URINE CREAT 70.82 mg/dL Normal 20.00-300. 00 [facility] Comment on above: Performed By: #### A MY, CMP, LIPA #### [facility] [address] [place] [address] Dr. Moreno Amato HEMOGLOBINon 04-30-2022 Hemoglobin (Bld) [Mass/Vol] 15.3 g/dL Normal 12.0-16.0 [facility] Comment on above: Performed By: #### A MY, CMP, LIPA #### [facility] [address] [place] [address] Dr. Moreno Amato LIPID PROFILEon 03-27-2022 CHOL-HDL RATIO NORM SEE BELOW Normal [facility] Comment on above: Result Comment: 3.3 - 4.4 LOW RISK 4.4 - 7.1 AVERAGE RISK 7.1 - 11.0 MODERATE RISK >11.0 HIGH RISK Performed By: #### A MY, CMP, LIPA #### [facility] [address] [place] [address] Dr. Moreno Amato Cholesterol [Mass/Vol] 217 mg/dL Critically high <=200 [facility] Comment on above: Performed By: #### A MY, CMP, LIPA #### [facility] [address] [address] [address] Moreno Amato Cholesterol in HDL [Mass/Vol] 42 mg/dL Normal 40-60 [facility] Comment on above: Performed By: #### A MY, CMP, LIPA #### [facility] [address] [address] [address] Moreno Amato Cholesterol in LDL [Mass/Vol] 121.6 mg/dL Normal [facility] Comment on above: Performed By: #### A MY, CMP, LIPA #### [facility] [address] [address] [address] Moreno Amato Cholesterol.total/Chol esterol in HDL [Mass ratio] 5.2 {ratio} Normal [facility] Comment on above: Performed By: #### A MY, CMP, LIPA #### [facility] [address] [address] [address] Moreno Amato HDL NORMAL > or = 60 mg/dl - LO W CARDIOVASCULAR RISK <40 mg/dl - HIGH CARDIOVASCULAR RISK Normal [facility] Comment on above: Performed By: #### A MY, CMP, LIPA #### [facility] [address] [address] [address] Moreno Amato LDL CALC NORMAL SEE BELOW Normal [facility] Comment on above: Result Comment: <100 mg/dl OPTIMAL 100 - 129 mg/dl NEAR OR ABOVE OPTIMAL 130 - 159 mg/dl BORDERLINE HIGH 160 - 189 mg/dl HIGH >190 mg/dl VERY HIGH Performed By: #### A MY, CMP, LIPA #### [facility] [address] [address] [address] Moreno Amato Triglyceride [Mass/Vol] 267 mg/dL Critically high <=150 [facility] Comment on above: Performed By: #### A MY, CMP, LIPA #### [facility] [address] [address] [address] Moreno Amato VLDL CALC 53.4 mg/dL Normal [facility] Comment on above: Performed By: #### A MY, CMP, LIPA #### [facility] [address] [address] [address] Moreno Amato PROF CHEM 8 (BAS METB)on Anion gap [Moles/Vol] 11.1 mmol/L Normal [facility] Comment on above: Performed By: #### A MY, CMP, LIPA #### [facility] [address] [address] [address] Moreno Amato Calcium [Mass/Vol] 9.2 mg/dL Normal 8.5-10.1 [facility] Comment on above: Performed By: #### A MY, CMP, LIPA #### [facility] [address] [address] [address] Moreno Amato Chloride [Moles/Vol] 104 mmol/L Normal 98-107 [facility] Comment on above: Performed By: #### A MY, CMP, LIPA #### [facility] [address] [place] [address] Dr. Moreno Amato CO2 [Moles/Vol] 27.4 mmol/L Normal 21.0-32.0 [facility] Comment on above: Performed By: #### A MY, CMP, LIPA #### [facility] [address] [address] [address] Moreno Amato Creatinine [Mass/Vol] 1.30 mg/dL Critically high 0.55-1.02 [facility] Comment on above: Performed By: #### A MY, CMP, LIPA #### [facility] [address] [address] [address] Moreno Amato EGFR-AF KENYAN 51 mL/min/1.73m2 Critically low >=60 [facility] Comment on above: Performed By: #### A MY, CMP, LIPA #### [facility] [address] [address] [address] Moreno Amato EGFR-NON AF KENYAN 42 mL/min/1.73m2 Critically low >=60 [facility] Comment on above: Performed By: #### A MY, CMP, LIPA #### [facility] [address] [address] [address] Moreno Amato Glucose [Mass/Vol] 102 mg/dL Normal 74-106 [facility] Comment on above: Performed By: #### A MY, CMP, LIPA #### [facility] [address] [place] [address] Dr. Moreno Amato Potassium [Moles/Vol] 4.5 mmol/L Normal 3.5-5.1 [facility] Comment on above: Performed By: #### A MY, CMP, LIPA #### [facility] [address] [place] [address] Dr. Moreno Amato Sodium [Moles/Vol] 138 mmol/L Normal 136-145 [facility] Comment on above: Performed By: #### A MY CMP, LIPA #### [facility] [address] [place] [address] Dr. Moreno Amato Urea nitrogen [Mass/Vol] 23.0 mg/dL Critically high 7.0-18.0 [facility] Comment on above: Performed By: #### A MY, CMP, LIPA #### [facility] [address] [place] [address] Dr. Moreno Amato Urea nitrogen/Creatinine [Mass ratio] 17.7 mg/mg Normal [facility] Comment on above: Performed By: #### A MY, CMP, LIPA #### [facility] [address] [place] [address] Dr. Moreno Johnson 03-27-2022 AST [Catalytic activity/Vol] 24 U/L Normal 15-37 [facility] Comment on above: Performed By: #### A MY, CMP, LIPA #### [facility] [address] [place] [address] Dr. Moreno Amato SGPTon 03-27-2022 ALT [Catalytic activity/Vol] 20 U/L Normal 14-59 [facility] Comment on above: Performed By: #### A MY, CMP, LIPA #### [facility] [address] [place] [address] Dr. Moreno Amato COVID/FLU RT-PCRon 3 SARS-CoV-2 (COVID-19) RNA ELISA+probe Ql (Unsp spec) Negative [employer] Other COVID/FLU RT-PCR Negative [facility] [employer] Other Quick Strepon 03-19-2022 S. pyogenes Org specific cx Ql (Throat) Negative [facility] [employer] Other Quick Strep [facility] [employer] Other Tobacco Screening.on 023 Adult depression screening assessment No [facility] 250 DO Work Phone: Fall risk assessment c) Not medically indicated [facility] 250 DO Work Phone: Tobacco use status CPHS b) No [facility] DO Work Phone: PAP ACOG PANEL 2: 30 to 65on 03-02-2022 . . Normal [facility] Comment on above: Result Comment: Perf ormed at: WB Performed By: #### A MY, CMP, LIPA #### [facility] [address] [address] [address] Moreno Amato Age Gdln ACOG Testing 30-65 Normal [facility] Comment on above: Performed By: #### A MY, CMP, LIPA #### [facility] [address] [address] [address] Moreno Amato DIAGNOSIS: Comment Normal [facility] Comment on above: Result Comment: NEGA TIVE FOR INTRAEPITHELIAL LESION OR MALIGNANCY. Performed at: WB Performed By: #### A MY, CMP, LIPA #### [facility] [address] [address] [address] Moreno Amato HPV Aptima Negative Normal Negative [facility] Comment on above: Result Comment: This nucleic acid amplification test detects fourteen high-risk HPV types (16,18,31,33,35,39,45,51,52,56,58,59,66,68) without differentiation. Performed at: =G Performed By: #### A MY, CMP, LIPA #### [facility] [address] [address] [address] Moreno Amato HPV Genotype Reflex Comment Normal [facility] Comment on above: Result Comment: Crit eria not met, HPV Genotype not performed. Performed at: WB Performed By: #### A MY, CMP, LIPA #### [facility] [address] [address] [address] Moreno Amato Methodology: Comment Normal [facility] Comment on above: Result Comment: This liquid based ThinPrep(R) pap test was screened with the use of an image guided system. Performed at: WB Performed By: #### A MY, CMP, LIPA #### [facility] [address] [address] [address] Moreno Amato Note: Comment Normal [facility] Comment on above: Result Comment: The Pap [...] #### [facility] [address] [address] [address] Moreno Amato Performed by: Comment Normal [facility] Comment on above: Result Comment: Maria Luisa Chou, Data Center Solutions Architect (ASCP) Performed at: WB Performed By: #### A MY, CMP, LIPA #### [facility] [address] [address] [address] Moreno Amato Specimen adequacy: Comment Normal [facility] Comment on above: Result Comment: Sati sfactory for evaluation. Endocervical and/or squamous metaplastic cells (endocervical component) are present. Performed at: WB Performed By: #### A MY, CMP, LIPA #### [facility] [address] [address] [address] Moreno Amato XR CHEST 2 Von [...] AMY ROSS Date: 2022-02-19 22:40 Normal [facility] CARDIAC STRESS/REST INJE CTIONon 01-23-2022 [facility] CARDIAC STRESS/REST INJECTION Patient Name: DEYSI HERNANDEZ STUDY: MYOCARDIAL PERFUSION STRESS TEST WITH LEXISCAN Performing facility: [facility], [address] [place] [address], [address], [place] [id number] [facility] Provider: Carlene Beal MD, FACC PCP: Dr. Mariann Thompson Supervising provider: Autumn Guidry RN, MATHEMATICS EDUCATION PROFESSOR INDICATION: Chest discomfort Elevated troponin Hyperlipidemia HISTORY: Gender: F; Age: 61 y/o ; Height: 0 cm; Weight: 71.8010113 kg. High Cholesterol; HTN; Chest Pain; Quit smoking <1 year ago. COMPARISON: No comparison. ACCESSION NUMBER(S): [id number]; [id number]; [id number] ORDERING CLINICIAN: MARQUEZ BEAL TECHNIQUE: ONE DAY [...] Electronically signed by: WAQAR MARTINEZ MD Normal [facility] No Panel Informationon 01-23 Normal [facility] 600 DO Work Phone: Tobacco Screening.on 022 Fall risk assessment a) No falls within the last year [facility] 600 DO Work Phone: Tobacco use status CP b) No [facility] 600 DO Work Phone: MG MAMM SCREEN 3D NIRMALA CADon 10-30-2021 MG MAMM SCREEN 3D NIRMALA CAD Patient: DEYSI HERNANDEZ Exam Date: 10/30/2021 : 1960 Gender:F Ordering : SHAIKH Ford THOMPSON . Admission #: [id number] Family : Order #: [id number] CLICK HERE TO VIEW EXAM RADIOLOGY REPORT [...] Wade M.D. on 10/31/2021 at 08:52 Normal [facility] Cardiac Stress Teston 2021 Cardiac Stress Test [facility] [address] [place] [address], [address] [place] [address] Exercise Stress Test Patient Name: DEYSI HERNANDEZ Ordering Physician: [id number] Beal MD Study Date: 10/17/2021 Reading Physician: [id number] Jaycob Newman MD, [facility] MRN/PID: [id number] Supervising Physician: [id number] Jaycob Newman MD, [facility] Accession/Order#: [id number] Referring Physician: [id number] BEAL Date of : 1960 PCP: Mariann THOMPSON Gender: M Fellow: Height: 162.56 cm Nurse: Jackie Shen RN Weight: 68.95 kg Photographic Lithographer: KYLE BSA: 1.74 m2 Technologist: BMI: 26.09 kg/m2 Additional Staff: Age: 61 years cc report to: Patient Location: cc report to: [id number] Marquez Beal MD Study Type: Cardiac Stress Test Diagnosis/ICD: R07.89-Other chest pain Indication: Chest Pain Atypical Procedure/CPT: Stress Test Interpretation-[id number]; Stress Test Supervision-[id number] Falls Risk: Low: Patient has low risk [...] The adequate level of stress was achieved. [id number] Jaycob Newman MD, [facility] Electronically signed on 10/23/2021 at 12:29:13 PM Final Normal [facility] Cardiac Stress Test Please click on the link to view the study images [facility] Work Phone: Cardiac Stress Test [facility] [place] [facility] 250 DO Work Phone: Creatinine and Glomerular fi ltration rate.predicted panel (S/P/Bld)Ordered By: Marquez Beal on 09-18-2021 Creatinine [Mass/Vol] 1.10 mg/dL 0.44-1.03 [facility] Estimated glomerular filtrat ion rate (GFR) non- AmericanOrdered By: Marquez Beal on 09-18-2021 GFR/1.73 sq M.predicted among non-blacks MDRD (S/P/Bld) [Vol rate/Area] 51 mL/Min [facility] No Panel InformationOrdered By: Marquez Beal on 09-18-2021 Estimated GFR () > 60 mL/Min [facility] Comment on above: GFR estimated refere nce range: According to KDOQI guidelines, <60 ml/min/1.73m2 is sufficient to diagnose a patient with chronic kidney disease. Pharmacy Creatinine Clearance (Chem N/A [facility] No Panel Informationon 09-18 9.8\S\9.8 Normal 8.2-10.2 [facility] 250 DO Work Phone: Comment on above: PERFORMED BY:[facility], [place] [phone] MEDICAL DIRECTORJERAMY CALDWELL M.D. 25.1\S\25.1 Normal 22.0-30.0 [facility] 250 DO Work Phone: 100\S\100 Normal 95-114 [facility] Work Phone: 3.9\S\3.9 Normal 3.5-5.1 [facility] 250 DO Work Phone: 138\S\138 Normal 136-146 [facility] Work Phone: > 60 Normal [facility] Work Phone: Comment on above: GFR estimated refere nce range: According to KDOQI guidelines, <60 ml/min/1.73m2 is sufficient to diagnose a patient with chronic kidney disease. 51\S\51 [facility] Work Phone: 1.10\S\1.10 above high threshold 0.44-1.03 [facility] Work Phone: 15\S\15 Normal 9-23 [facility] Work Phone: [phone] 95\S\95 Normal 70-100 [facility] Work Phone: Comment on above: Random Glucose Refer ence Range is dependent on time and content of last meal. Glucose of more than 200 mg/dL in a nonstressed, ambulatory subject supports the diagnosis of Diabetes Mellitus. ADA recommended reference range Serum or plasma calcium teagan urement (mass/volume)Ordered By: Marquez Beal on 09-18-2021 Calcium [Mass/Vol] 9.8 mg/dL 8.2-10.2 [facility] Serum or plasma chloride sophia surement (moles/volume)Ordered By: Marquez Beal on 09-18-2021 Chloride [Moles/Vol] 100 mmol/L 95-114 [facility] Serum or plasma glucose teagan urement (mass/volume)Ordered By: Marquez Beal on 09-18-2021 Glucose [Mass/Vol] 95 mg/dL 70-100 [facility] Comment on above: ADA recommended refe rence range Random Glucose Reference Range is dependent on time and content of last meal. Glucose of more than 200 mg/dL in a nonstressed, ambulatory subject supports the diagnosis of Diabetes Mellitus. Serum or plasma potassium me asurement (moles/volume)Ordered By: Marquez Beal on 09-18-2021 Potassium [Moles/Vol] 3.9 mmol/L 3.5-5.1 [facility] Serum or plasma sodium measu rement (moles/volume)Ordered By: Marquez Beal on 09-18-2021 Sodium [Moles/Vol] 138 mmol/L 136-146 [facility] Serum or plasma total carbon dioxide measurement (moles/volume)Ordered By: Marquez Beal on 09-18-2021 CO2 [Moles/Vol] 25.1 mmol/L 22.0-30.0 [facility] Serum or plasma urea nitroge n measurement (mass/volume)Ordered By: Marquez Beal on 09-18-2021 Urea nitrogen [Mass/Vol] 15 mg/dL 9-23 [facility] Tobacco Screening.on 022 Adult depression screening assessment No [facility] 250 DO Work Phone: Fall risk assessment a) No falls within the last year [facility] 250 DO Work Phone: Tobacco use status CPHS a) Yes [facility] 250 DO Work Phone: Tobacco Screening. Yes [facility] [place] 250 DO Work Phone: Bacterial blood cultureOrder ed By: Bong Sosarram on 08-19-2021 Bacteria identified Cx Nom (Bld) NO GROWTH 5 DAYS [facility] Basophils Auto (Bld) [#/Vol] Ordered By: Alaina Arce on 08-17-2021 Basophils (Bld) [#/Vol] 0.1 10*3/uL 0.0-0.2 [facility] Basophils/100 WBC Auto (Bld) Ordered By: Alaina Arce on 08-17-2021 Basophils/100 WBC (Bld) 0.7 % . [facility] Blood hemoglobin measurement (mass/volume)Ordered By: Alaina Arce on 08-17-2021 Hemoglobin (Bld) [Mass/Vol] 15.0 g/dL 11.8-15.4 [facility] Blood leukocytes automated c ount (number/volume)Ordered By: Alaina Arce on 08-17-2021 WBC (Bld) [#/Vol] 10.0 10*3/uL 4.5-11.0 [facility] Creatinine and Glomerular fi ltration rate.predicted panel (S/P/Bld)Ordered By: Alaina Arce on 08-17-2021 Creatinine [Mass/Vol] 1.27 mg/dL 0.44-1.03 [facility] Eosinophils Auto (Bld) [#/Vo l]Ordered By: Alaina Arce on 08-17-2021 Eosinophils (Bld) [#/Vol] 0.2 10*3/uL 0.0-0.45 [facility] Eosinophils/100 WBC Auto (Bl d)Ordered By: Alaina Arce on 08-17-2021 Eosinophils/100 WBC (Bld) 1.8 % . [facility] Erythrocyte distribution wid th Auto (RBC) [Ratio]Ordered By: Alaina Arce on 08-17-2021 Erythrocyte distribution width (RBC) [Ratio] 12.7 % 11.9-15.3 [facility] Estimated glomerular filtrat ion rate (GFR) non- AmericanOrdered By: Alaina Arce on 08-17-2021 GFR/1.73 sq M.predicted among non-blacks MDRD (S/P/Bld) [Vol rate/Area] 43 mL/Min [facility] Hematocrit Auto (Bld) [Volum e fraction]Ordered By: Alaina Arce on 08-17-2021 Hematocrit (Bld) [Volume fraction] 42.6 % 34.0-46.4 [facility] - Hematology and Cell countsOrdered By: Alaina Arce on 08-17-2021 Nucleated RBC/100 WBC (Bld) [Ratio] 0.0 % 0-0.5 [facility] Lymphocytes Auto (Bld) [#/Vo l]Ordered By: Alaina Arce on 08-17-2021 Lymphocytes (Bld) [#/Vol] 2.4 10*3/uL 1.00-4.8 [facility] Lymphocytes/100 WBC Auto (Bl d)Ordered By: Alaina Arce on 08-17-2021 Lymphocytes/100 WBC (Bld) 23.7 % . [facility] MCH Auto (RBC) [Entitic mass ]Ordered By: Alaina Arce on 08-17-2021 MCH (RBC) [Entitic mass] 31.0 pg 24.7-34.3 [facility] MCHC Auto (RBC) [Mass/Vol]Or dered By: Alaina Arce on 08-17-2021 MCHC (RBC) [Mass/Vol] 35.3 g/dL 32.0-35.0 [facility] MCV Auto (RBC) [Entitic vol] Ordered By: Alaina Arce on 08-17-2021 MCV (RBC) [Entitic vol] 87.8 fL 80-100 [facility] Monocytes Auto (Bld) [#/Vol] Ordered By: Alaina Arce on 08-17-2021 Monocytes (Bld) [#/Vol] 1.0 10*3/uL 0.0-0.8 [facility] Monocytes/100 WBC Auto (Bld) Ordered By: Alaina Arce on 08-17-2021 Monocytes/100 WBC (Bld) 10.2 % . [facility] Neutrophils Auto (Bld) [#/Vo l]Ordered By: Alaina Arce on 08-17-2021 Neutrophils (Bld) [#/Vol] 6.3 10*3/uL 1.8-7.7 [facility] Neutrophils/100 WBC Auto (Bl d)Ordered By: Alaina Arce on 08-17-2021 Neutrophils/100 WBC (Bld) 63.6 % . [facility] No Panel InformationOrdered By: Alaina Arce on 08-17-2021 Estimated GFR () 52 mL/Min [facility] Comment on above: GFR estimated refere nce range: According to KDOQI guidelines, <60 ml/min/1.73m2 is sufficient to diagnose a patient with chronic kidney disease. Pharmacy Creatinine Clearance (Chem 47.54 [facility] Platelet mean volume Auto (B ld) [Entitic vol]Ordered By: Alaina Arce on 08-17-2021 Platelet mean volume (Bld) [Entitic vol] 8.5 fL 6.3-10.7 [facility] Platelets Auto (Bld) [#/Vol] Ordered By: Alaina Arce on 08-17-2021 Platelets (Bld) [#/Vol] 241 10*3/uL 150-450 [facility] RBC Auto (Bld) [#/Vol]Ordere d By: Alaina Arce on 08-17-2021 RBC (Bld) [#/Vol] 4.85 10*6/uL 3.60-5.00 [facility] Serum or plasma calcium teagan urement (mass/volume)Ordered By: Alaina Arce on 08-17-2021 Calcium [Mass/Vol] 8.9 mg/dL 8.2-10.2 [facility] Serum or plasma chloride sophia surement (moles/volume)Ordered By: Alaina Arce on 08-17-2021 Chloride [Moles/Vol] 101 mmol/L 95-114 [facility] Serum or plasma glucose teagan urement (mass/volume)Ordered By: Alaina Arce on 08-17-2021 Glucose [Mass/Vol] 132 mg/dL 70-100 [facility] Comment on above: ADA recommended refe rence range Random Glucose Reference Range is dependent on time and content of last meal. Glucose of more than 200 mg/dL in a nonstressed, ambulatory subject supports the diagnosis of Diabetes Mellitus. Serum or plasma potassium me asurement (moles/volume)Ordered By: Alaina Arce on 08-17-2021 Potassium [Moles/Vol] 2.9 mmol/L 3.5-5.1 [facility] Comment on above: Results called at 0721 on 08/17/21 Serum or plasma sodium measu rement (moles/volume)Ordered By: Alaina Arce on 08-17-2021 Sodium [Moles/Vol] 137 mmol/L 136-146 [facility] Serum or plasma total carbon dioxide measurement (moles/volume)Ordered By: Alaina Arce on 08-17-2021 CO2 [Moles/Vol] 25.3 mmol/L 22.0-30.0 [facility] Serum or plasma urea nitroge n measurement (mass/volume)Ordered By: Alaina Arce on 08-17-2021 Urea nitrogen [Mass/Vol] 17 mg/dL 9-23 [facility] Albumin [Mass/volume] in Ser um or PlasmaOrdered By: Alaina Arce on 08-16-2021 Albumin [Mass/Vol] 3.1 g/dL 3.2-5.5 [facility] Globulin Calc (S) [Mass/Vol] Ordered By: Alaina Arce on 08-16-2021 Globulin (S) [Mass/Vol] 3.0 g/dL [facility] Protein [Mass/volume] in Ser um or PlasmaOrdered By: Alaina Arce on 08-16-2021 Protein [Mass/Vol] 6.1 g/dL 6.1-7.9 [facility] Serum or plasma alanine spencer otransferase measurement without P-5'-P (enzymatic activiOrdered By: Alaina Arce on 08-16-2021 ALT No additional P-5'-P [Catalytic activity/Vol] 57 U/L 10-60 [facility] Serum or plasma albumin/glob ulin mass ratioOrdered By: Alaina Arce on 08-16-2021 Albumin/Globulin [Mass ratio] 1.0 {ratio} [facility] Serum or plasma alkaline calvin sphatase measurement (enzymatic activity/volume)Ordered By: Alaina Arce on 08-16-2021 ALP [Catalytic activity/Vol] 76 U/L 32-92 [facility] Serum or plasma aspartate am inotransferase measurement (enzymatic activity/volume)Ordered By: Alaina Arce on 08-16-2021 AST [Catalytic activity/Vol] 47 U/L 10-42 [facility] Serum or plasma total biliru bin measurement (mass/volume)Ordered By: Alaina Arce on 08-16-2021 Bilirubin [Mass/Vol] 1.5 mg/dL 0.3-1.2 [facility] Comment on above: Samples from patient s who have taken Naproxen have shown spurious elevation in Total Bilirubin levels. A metabolite of Naproxen, O-desmethylnaproxen, has been shown to interfere with the Alhaji-Joseph method for measuring Total Bilirubin. Amphetamine Screen Ql (U)Ord ered By: Alaina Arce on 08-15-2021 Amphetamines Ql (U) Negative Negative [facility] [facility] Antithrombin measurement (un its/volume) in platelet poor plasma by chromogenic methodOrdered By: Janet Hamm on 08-15-2021 Antithrombin Chromogenic method Qn (PPP) 113 % 75-135 [facility] Comment on above: Direct Xa inhibitor anticoagulants such as rivaroxaban, apixaban and edoxaban will lead to spuriously elevated antithrombin activity levels possibly masking a deficiency. Barbiturates [Presence] in U rineOrdered By: Alaina Arce on 08-15-2021 Barbiturates Ql (U) Negative Negative [facility] Benzodiazepines [Presence] i n UrineOrdered By: Alaina Arce on 08-15-2021 Benzodiazepines Ql (U) Negative Negative [facility] Beta 2 glycoprotein 1 IgG Ab [Units/volume] in SerumOrdered By: Janet Hamm on 08-15-2021 Beta 2 glycoprotein 1 IgG Qn (S) <9 0-20 [facility] Comment on above: Result Units: [...] glycoprotein 1 IgM Qn (S) <9 0-32 [facility] Comment on above: Result Units: [...] 08-15-2021 Cannabinoids Screen Ql (U) Negative Negative [facility] Comment on above: These are [...] IA Qn (S) <9 GPL U/mL 0-14 [facility] Comment on above: Negative: <15 Indeterminate: 15 - 20 Low-Med Positive: >20 - 80 High Positive: >80 Cardiolipin IgM Ab [Units/vo lume] in Serum by ImmunoassayOrdered By: Janet Hamm on 08-15-2021 Cardiolipin IgM IA Qn (S) 17 MPL U/mL 0-12 [facility] Comment on above: Negative: <13 Indeterminate: 13 - 20 Low-Med Positive: >20 - 80 High Positive: >80 Cholesterol [Mass/volume] in Serum or PlasmaOrdered By: Janet Hamm on 08-15-2021 Cholesterol [Mass/Vol] 259 mg/dL 140-200 [facility] Comment on above: Chol less than 200 m g/dl low risk Chol 201-239 mg/dl borderline risk Chol 240 mg/dl and greater high risk Cholesterol in LDL Calc [Mas s/Vol]Ordered By: Janet Hamm on 08-15-2021 Cholesterol in LDL [Mass/Vol] 176 mg/dL 0-100 [facility] Comment on above: LDL ATP III CLASSIFI CATION LDL less than 100 mg/dL Optimal LDL 100-129 mg/dL Near or above optimal LDL 130-159 mg/dL Borderline high LDL 160-189 mg/dL High LDL greater than 189 mg/dL Very high Cholesterol in VLDL Calc [Ma ss/Vol]Ordered By: Janet Hamm on 08-15-2021 Cholesterol in VLDL [Mass/Vol] 32 mg/dL [facility] Dilute Vinay's viper venom timeOrdered By: Janet Hamm on 08-15-2021 dRVVT Coag (PPP) [Time] 45.5 s 0.0-47.0 [facility] Free protein S measurementOr dered By: Janet Hamm on 08-15-2021 Protein S Free Ag IA Qn (PPP) 134 % 61-136 [facility] Functional protein C measure mentOrdered By: Janet Hamm on 08-15-2021 Protein C actual/normal Chromogenic method (PPP) [Rel catalytic activity/Vol] 158 % 73-180 [facility] Laboratory - Drug toxicology Ordered By: Alaina Arce on 08-15-2021 Opiates Ql (U) Negative Negative [facility] Lupus anticoagulant [Interpr etation] in Platelet poor plasmaOrdered By: Janet Hamm on 08-15-2021 Lupus anticoagulant (PPP) [Interp] Comment: . [facility] Comment on above: No lupus anticoagula nt was detected. No Panel InformationOrdered By: Janet Hamm on 08-15-2021 Activated Protein C Resist Confirm 2.6 ratio 2.2-3.5 [facility] Comment on above: The APCR result may be falsely increased (masking an abnormal, low APCR result) in patients on direct Xa inhibitor (e.g., rivaroxaban, apixaban, edoxaban) or a direct thrombin inhibitor (e.g., dabigatran) anticoagulant therapy due to assay interference by these drugs. Phencyclidine Screen Ql (U)O rdered By: Alaina Arce on 08-15-2021 Phencyclidine Ql (U) Negative Negative [facility] Plasminogen measurementOrder ed By: Janet Hamm on 08-15-2021 Plasminogen actual/normal Chromogenic method (PPP) [Rel catalytic activity/Vol] 119 % 70-150 [facility] Platelet poor plasma ratio o f lupus anticoagulant-sensitive activated partial thromboOrdered By: Janet Hamm on 08-15-2021 aPTT.lupus sensitive.excess phospholipid actual/normal Coag (PPP) [Relative time] 38.6 sec 0.0-47.6 [facility] Prothrombin gene [id number] mut ation detectionOrdered By: Janet Hamm on 08-15-2021 F2 gene targeted mutation analysis [employer] Nom (Bld/Tiss) See comment . [facility] Comment on above: Result: c.*97G>A [...] the F2 gene and a c.1601G>A (p. [id number]) variant in the F5 gene (commonly referred to as Factor V Leiden) have an approximately 20- fold increased risk for venous thromboembolism. Risks are likely to be even higher in more complex genotype combinations involving the F2 c.*97G>A variant and Factor V Leiden (PMID: 63385546). Additional risk factors include but are not [...] health care providers to discuss results at [phone] [place] ([id number]). Test Details: Variant analyzed: c.*97G>A, previously referred to as [id number] Methods/Limitations: DNA analysis of the F2 gene [...] developed and its performance characteristics determined by [employer]. It has not been cleared or approved by the Food and Drug Administration. References: Taj Church, Briana MCLAUGHLIN, Gilberto R, Bogdan WW, Yanick JH; ACMG Professional Practice and Guidelines Committee. Addendum: [employer] consensus statement on factor V Leiden mutation testing. Zoë Med. 2020Apr 22. doi: 10.1038/m82012-762-43165-f. PMID: 66564425. Edgardo KRISHNA. Prothrombin Thrombophilia. 2005Sep 11 [Updated 2020Mar 24]. In: Rober MP, Thaddeus HH, Iman RA, et al., editors. Aliyah(R) [Internet]. [place] ([place]): [facility]; [phone]. Available from: https://www.ncbi.nlm.nih.gov/books/AXO8177/ Ariel Church, Briana MCLAUGHLIN, Aakash X, Grady B, Vidal EB, Siobhan P, Anny CS; [employer] Laboratory Marketing Lead Committee. Venous thromboembolism laboratory testing (factor V Leiden and factor II c.*97G>A), 2018 update: a technical standard of the [employer] (ACMG). Zoë Med. 2018 Jan;20(12):9922-9084. doi: 10.1038/[id number]-z. Epub 2017Nov 22. PMID: 25210834. Evon Negron, PhD, FACMG Otis Guthrie, PhD, FACMG Rehan Goodson, PhD, FACMG Nick Bergeron, PhD, FACMG W Mona Pagan, PhD, FACMG Vee Mera, PhD, FACMG Gregoria Carrasco, PhD, FACMG Performed at: CB - [facility] [address] [id number] Long Term Care Social Worker: Harshad Acosta PhD, Phone: [phone] Performed at: - [facility] [address] [id number] Long Term Care Social Worker: Veronica Ring MD, Phone: [phone] Performed at: TG - [facility] [address] [place], [place] [id number] Long Term Care Social Worker: Becky Cabezas [facility], Phone: [phone] Serum or plasma high density lipoprotein (HDL) cholesterol measurementOrdered By: Janet Hamm on 08-15-2021 Cholesterol in HDL [Mass/Vol] 50 mg/dL 35-85 [facility] Comment on above: HDL CHOL ATP-III CLA SSIFICATION Cardiovascular Risk HDL > or equal to 60 mg/dL LOW HDL < 40 mg/dL HIGH Serum or plasma homocysteine measurement (moles/volume)Ordered By: Janet Hamm on 08-15-2021 Homocysteine [Moles/Vol] 12.8 umol/L 0.0-14.5 [facility] Serum or plasma total choles terol/high density lipoprotein (HDL) cholesterol mass ratOrdered By: Janet Hamm on 08-15-2021 Cholesterol.total/Chol esterol in HDL [Mass ratio] 5.2 {ratio} <5.0 [facility] Triglyceride [Mass/volume] i n Serum or PlasmaOrdered By: Janet Hamm on 08-15-2021 Triglyceride [Mass/Vol] 164 mg/dL 35-149 [facility] Comment on above: TRIG ATP III CLASSIF ICATION TRIG less than 150 mg/dL Normal TRIG 150-199 mg/dL Borderline high TRIG 200-500 mg/dL High TRIG greater than 500 mg/dL Very high Standard traceable to the Center for Disease Conrtrol and Prevention (CDC) test method. Urine cocaine detectionOrder ed By: Alaina Arce on 08-15-2021 Cocaine Ql (U) Negative Negative [facility] Urine culture routineOrdered By: Alaina Arce on 08-15-2021 Bacteria identified Cx Nom (U) 2 Days [facility] aPTT.lupus sensitive (LA scr een)Ordered By: Janet Hamm on 08-15-2021 aPTT.lupus sensitive Coag (PPP) [Time] 35.2 sec 0.0-51.9 [facility] aPTT.lupus sensitive/aPTT.sheryl pus sensitive W excess phospholipid (screen to confirm raOrdered By: Janet Hamm on 08-15-2021 aPTT.lupus sensitive/aPTT.lupus sensitive W excess phospholipid Coag (PPP) [Ratio] 0.94 Ratio 0.00-1.34 [facility] Activated partial thrombopla stin time (aPTT) in platelet poor plasma by coagulation aOrdered By: Bong Bansal on 08-14-2021 aPTT Coag (PPP) [Time] 28.2 s 25.1-36.5 [facility] Bacterial blood cultureOrder ed By: Bong Bansal on 08-14-2021 Bacteria identified Cx Nom (Bld) NO GROWTH 5 DAYS [facility] Creatinine [Mass/volume] in UrineOrdered By: Alaina Arce on 08-14-2021 Creatinine (U) [Mass/Vol] 74.6 mg/dL [facility] Comment on above: No reference range e stablished Glucose Glucometer (BldC) [M ass/Vol]Ordered By: Alaina Arce on 08-14-2021 Glucose [Mass/Vol] 102 mg/dL [facility] Comment on above: Random Glucose Refer ence Range is dependent on time and content of last meal. Glucose of more than 200 mg/dL in a nonstressed, ambulatory subject supports the diagnosis of Diabetes Mellitus. Glucose mean value [Mass/vol ume] in Blood Estimated from glycated hemoglobinOrdered By: Janet Hamm on 08-14-2021 Average glucose Estimated from glycated hemoglobin (Bld) [Mass/Vol] 126 mg/dL [facility] Hemoglobin A1c percentageOrd ered By: Janet Hamm on 08-14-2021 HbA1c (Bld) [Mass fraction] 6.0 % 4.3-5.6 [facility] Comment on above: Increased risk for d iabetes: 5.7 - 6.4 diabetes: >6.4 glycemic control for adults with diabetes: <7.0 Laboratory - Chemistry and C hemistry - challengeOrdered By: Alaina Arce on 08-14-2021 Magnesium [Mass/Vol] 2.3 mg/dL 1.6-2.6 [facility] Laboratory - CoagulationOrde red By: Bong Bansal on 08-14-2021 PT Coag (PPP) [Time] 11.8 s 9.0-12.9 [facility] Platelet poor plasma interna tional normalized ratio (INR) by coagulation assay (relatOrdered By: Bong Bansal on 08-14-2021 INR Coag (PPP) [Relative time] 1.1 {INR} [facility] Comment on above: INR Therapeutic [...] Protein (U) [Mass/Vol] 100 mg/dL 0-9 [facility] Renin activityOrdered By: Emma Arce on 08-14-2021 Renin (P) [Catalytic activity/Vol] 27.141 ng/mL/hr 0.167-5.38 0 [facility] Comment on above: This test was devkatrinao ped and its performance characteristics determined by [employer]. It has not been cleared or approved by the Food and Drug Administration. Performed at: - [facility] [address] [id number] Long Term Care Social Worker: Veronica Ring MD, Phone: [phone] Serum or plasma aldosterone measurement (mass/volume)Ordered By: Alaina Arce on 08-14-2021 Aldosterone [Mass/Vol] 7.8 ng/dL 0.0-30.0 [facility] Comment on above: This test was develo ped and its performance characteristics determined by [facility]. It has not been cleared or approved by the Food and Drug Administration. Performed at: BN - [facility] [address] [id number] Long Term Care Social Worker: Veronica Ring MD, Phone: [phone] Urine protein/creatinine rat ioOrdered By: Alaina Arce on 08-14-2021 Protein/Creatinine (U) [Ratio] 1340 mg/g{Cre} 0-200 [facility] Urine sodium measurement (mo les/volume)Ordered By: Alaina Arce on 08-14-2021 Sodium (U) [Moles/Vol] 54.0 mmol/L [facility] Comment on above: No reference range e stablished AMYLASEon 08-13-2021 Amylase [Catalytic activity/Vol] 80 U/L Normal 25-115 [facility] Comment on above: Performed By: #### A MY, CMP, LIPA #### [facility] [address] [address] [address] Moreno Amato Automated erythrocytes count in urine sediment (number/area)Ordered By: Alaina Arce on 08-13-2021 RBC Auto (Urine sed) [#/Area] 5-9 [HPF] 0-4 [facility] Automated leukocytes count i n urine sediment (number/area)Ordered By: Alaina Arce on 08-13-2021 WBC Auto (Urine sed) [#/Area] 20-49 [HPF] 0-4 [facility] Bilirubin Test strip Ql (U)O rdered By: Alaina Arce on 08-13-2021 Bilirubin Ql (U) Negative Negative [facility] CBC AUTO DIFFon 08-13-2021 BASO # 0.1 103/ul Normal 0.0-0.1 [facility] Comment on above: Performed By: #### C BC #### [facility] [address] [place] [address] Dr. Moreno Amato Basophils/100 WBC (Bld) 0.6 % Normal 0.2-2.0 [facility] Comment on above: Performed By: #### C BC #### [facility] [address] [place] [address] Dr. Moreno Amato EO # 0.1 103/ul Normal 0.0-0.7 [facility] Comment on above: Performed By: #### C BC #### [facility] [address] [place] [address] Dr. Moreno Amato Eosinophils/100 WBC (Bld) 0.6 % Critically low 0.9-7.0 [facility] Comment on above: Performed By: #### C BC #### [facility] [address] [place] [address] Dr. Moreno Amato Erythrocyte distribution width (RBC) [Ratio] 11.9 % Normal 11.0-15.0 [facility] Comment on above: Performed By: #### C BC #### [facility] [address] [place] [address] Dr. Moreno Amato Hematocrit (Bld) [Volume fraction] 51.0 % Critically high 36.0-48.0 [facility] Comment on above: Performed By: #### C BC #### [facility] [address] [place] [address] Dr. Moreno Amato Hemoglobin (Bld) [Mass/Vol] 18.2 g/dL Critically high 12.0-16.0 [facility] Comment on above: Performed By: #### C BC #### [facility] [address] [place] [address] Dr. Moreno Amato IG # 0.04 10e3/ul Critically high 0.00-0.03 [facility] Comment on above: Performed By: #### C BC #### [facility] [address] [place] [address] Dr. Moreno Amato IG % 0.3 % Normal 0.0-0.5 [facility] Comment on above: Performed By: #### C BC #### [facility] [address] [place] [address] Dr. Moreon Amato LYMPH # 2.2 103/ul Normal 1.2-3.8 [facility] Comment on above: Performed By: #### C BC #### [facility] [address] [place] [address] Dr. Moreno Amato Lymphocytes/100 WBC (Bld) 17.1 % Critically low 20.5-60.0 [facility] Comment on above: Performed By: #### C BC #### [facility] [address] [place] [address] Dr. Moreno Amato MANUAL DIFF REQ NO Normal [facility] Comment on above: Performed By: #### C BC #### [facility] [address] [place] [address] Dr. Moreno Amato MCH (RBC) [Entitic mass] 30.4 pg Normal 26.7-34.0 [facility] Comment on above: Performed By: #### C BC #### [facility] [address] [place] [address] Dr. Moreno Amato MCHC (RBC) [Mass/Vol] 35.7 g/dL Critically high 29.9-35.2 [facility] Comment on above: Performed By: #### C BC #### [facility] [address] [place] [address] Dr. Moreno Amato MCV (RBC) [Entitic vol] 85.1 fL Normal 81.0-99.0 [facility] Comment on above: Performed By: #### C BC #### [facility] [address] [place] [address] Dr. Moreno Amato MONO # 1.3 103/ul Critically high 0.3-0.8 [facility] Comment on above: Performed By: #### C BC #### [facility] [address] [place] [address] Dr. Moreno Amato Monocytes/100 WBC (Bld) 10.0 % Normal 1.7-12.0 [facility] Comment on above: Performed By: #### C BC #### [facility] [address] [address] [address] Moreno Amato NEUT # 9.3 103/ul Critically high 1.4-6.5 [facility] Comment on above: Performed By: #### C BC #### [facility] [address] [address] [address] Moreno Amato Neutrophils/100 WBC (Bld) 71.4 % Normal 43.0-75.0 [facility] Comment on above: Performed By: #### C BC #### [facility] [address] [address] [address] Moreno Amato Platelet mean volume (Bld) [Entitic vol] 9.8 fL Normal 9.5-13.5 [facility] Comment on above: Performed By: #### C BC #### [facility] [address] [address] [address] Moreno Amato PLT 242 103/ul Normal 150-450 [facility] Comment on above: Performed By: #### C BC #### [facility] [address] [id number] [address] Moreno Amato RBC 5.99 106/ul Critically high 4.20-5.40 [facility] Comment on above: Performed By: #### C BC #### [facility] [address] [address] [address] Moreno Amato WBC 13.0 103/ul Critically high 4.0-11.0 [facility] Comment on above: Performed By: #### C BC #### [facility] [address] ABD/PELVIS WO CONon [...] LIPA #### [facility] [address] [place] [address] Dr. Moreno Amato Color Auto (U)Ordered By: Emma Arce on 08-13-2021 Color (U) Yellow [facility] Covid-19 PCR (CVDTBH)on 07-20 SARS-CoV-2 [...] for this test is supported by the [place] of Health and Human Service's declaration that [...] used). Performed By: #### C VDTBH #### [facility] [address] [place] [address] Dr. Moreno Amato ER URINE PROFILEon Bilirubin Ql (U) Negative Normal NEGATIVE [facility] Comment on above: Performed By: #### E NAOMI ALAN #### [facility] [address] [place] [address] Dr. Moreno Amato Clarity (U) CLEAR Normal CLEAR [facility] Comment on above: Performed By: #### E NAOMI ALAN #### [facility] [address] [place] [address] Dr. Moreno Amato Color (U) LT. YELLOW Normal YELLOW [facility] Comment on above: Performed By: #### Rupal ALAN UMICRO #### [facility] [address] [place] [address] Dr. Moreno Amato ERUAHYevgeniy A micrscopic examina tion will be performed if indicated. Normal [facility] Comment on above: Performed By: #### E DAYANNA, UMICRO #### [facility] [address] [place] [address] Dr. Moreno Amato Glucose Ql (U) Negative Normal NEGATIVE [facility] Comment on above: Performed By: #### Rupal ALAN UMICRO #### [facility] [address] [place] [address] Dr. Moreno Amato Hemoglobin Ql (U) MODERATE Abnormal NEGATIVE [facility] Comment on above: Performed By: #### Rupal RUHannah UMICRO #### [facility] [address] [place] [address] Dr. Moreno Amato Ketones Ql (U) Negative Normal NEGATIVE [facility] Comment on above: Performed By: #### Rupal ALAN UMICRO #### [facility] [address] [place] [address] Dr. Moreno Amato LEUKOCYTES SMALL Abnormal NEGATIVE [facility] Comment on above: Performed By: #### Rupal ALAN, UMICRO #### [facility] [address] [place] [address] Dr. Moreno Amato Nitrite Ql (U) Positive Abnormal NEGATIVE [facility] Comment on above: Performed By: #### Rupal RUHannah, UMICRO #### [facility] [address] [place] [address] Dr. Moreno Amato pH (U) 6.0 [pH] Normal 5-9 [facility] Comment on above: Performed By: #### Rupal ALAN, UMICRO #### [facility] [address] [place] [address] Dr. Moreno Amato SPEC GRAVITY 1.020 Normal 1.005-<=1. 025 [facility] Comment on above: Performed By: #### Rupal ALAN UMICRO #### [facility] [address] [address] [address] Moreno Amato UA PROTEIN >300 Abnormal NEGATIVE/ TRACE [facility] Comment on above: Performed By: #### E DAYANNA, SULAIMANRO #### [facility] [address] [address] [address] Moreno Amato UR MICRO IND INDICATED Normal [facility] Comment on above: Performed By: #### E DAYANNA, SULAIMANRO #### [facility] [address] [address] [address] Moreno Amato Urobilinogen Qn (U) 0.2 {[place]'U}/dL Normal 0.2 - 1. 0 [facility] Comment on above: Performed By: #### SULAIMAN FRANCISCORO #### [facility] [address] [place] [address] Dr. Moreno Amato Ketones Auto test strip (U) [Mass/Vol]Ordered By: Alaina Arce on 08-13-2021 Ketones (U) [Mass/Vol] Negative Negative [facility] LACTATE/LACTIC ACIDon 2021 Lactate [Moles/Vol] 1.1 mmol/L Normal 0.4-1.9 [facility] Comment on above: Performed By: #### A MY, CMP, LIPA #### [facility] [address] [place] [address] Dr. Moreno Amato LIPASEon 08-13-2021 Lipase [Catalytic activity/Vol] 524.0 U/L Critically high 73.0-393.0 [facility] Comment on above: Performed By: #### A MY, CMP, LIPA #### [facility] [address] [place] [address] Dr. Moreno Amato Laboratory - Chemistry and C hemistry - challengeOrdered By: Alaina Arce on 08-13-2021 Lactate [Moles/Vol] 1.6 mmol/L 0.5-2.2 [facility] Laboratory - UrinalysisOrder ed By: Alaina Arce on 08-13-2021 Hyaline casts LM Ql (Urine sed) 9-19 [LPF] 0-8 [facility] Nitrite Test strip Ql (U)Ord ered By: Alaina Arce on 08-13-2021 Nitrite Ql (U) Positive Negative [facility] POINT OF CARE GLUCOSEon 07-20 Glucose [Mass/Vol] 129 mg/dL Critically high 74-106 [facility] Comment on above: Performed By: #### A MY, CMP, LIPA #### [facility] [address] [address] [address] Moreno Amato PROF 14(COMP METB)on 022 Albumin [Mass/Vol] 3.4 g/dL Normal 3.4-5.0 [facility] Comment on above: Performed By: #### A MY, CMP, LIPA #### [facility] [address] [place] [address] Dr. Moreno Amato Albumin/Globulin [Mass ratio] 0.8 {ratio} Normal [facility] Comment on above: Performed By: #### A MY, CMP, LIPA #### [facility] [address] [address] [address] Moreno Amato ALP [Catalytic activity/Vol] 105 U/L Normal 46-116 [facility] Comment on above: Performed By: #### A MY, CMP, LIPA #### [facility] [address] [place] [address] Dr. Moreno Amato ALT [Catalytic activity/Vol] 22 U/L Normal 14-59 [facility] Comment on above: Performed By: #### A MY, CMP, LIPA #### [facility] [address] [address] [address] Moreno Amato Anion gap [Moles/Vol] 11.6 mmol/L Normal [facility] Comment on above: Performed By: #### A MY, CMP, LIPA #### [facility] [address] [address] [address] Moreno Amato AST [Catalytic activity/Vol] 22 U/L Normal 15-37 [facility] Comment on above: Performed By: #### A MY, CMP, LIPA #### [facility] [address] [address] [address] Moreno mAato Bilirubin [Mass/Vol] 0.7 mg/dL Normal 0.2-1.0 [facility] Comment on above: Performed By: #### A MY, CMP, LIPA #### [facility] [address] [place] [address] Dr. Moreno Amato Calcium [Mass/Vol] 9.6 mg/dL Normal 8.5-10.1 [facility] Comment on above: Performed By: #### A MY, CMP, LIPA #### [facility] [address] [place] [address] Dr. Moreno Amato Chloride [Moles/Vol] 97 mmol/L Critically low 98-107 [facility] Comment on above: Performed By: #### A MY, CMP, LIPA #### [facility] [address] [place] [address] Dr. Moreno Amato CO2 [Moles/Vol] 31.2 mmol/L Normal 21.0-32.0 [facility] Comment on above: Performed By: #### A MY, CMP, LIPA #### [facility] [address] [place] [address] Dr. Moreno Amato Creatinine [Mass/Vol] 1.64 mg/dL Critically high 0.55-1.02 [facility] Comment on above: Performed By: #### A MY, CMP, LIPA #### [facility] [address] [place] [address] Dr. Moreno Amato EGFR-AF KENYAN 39 mL/min/1.73m2 Critically low >=60 [facility] Comment on above: Performed By: #### A MY, CMP, LIPA #### [facility] [address] [place] [address] Dr. Moreno Amato EGFR-NON AF KENYAN 32 mL/min/1.73m2 Critically low >=60 [facility] Comment on above: Performed By: #### A MY, CMP, LIPA #### [facility] [address] [place] [address] Dr. Moreno Amato Globulin (S) [Mass/Vol] 4.1 g/dL Normal [facility] Comment on above: Performed By: #### A MY, CMP, LIPA #### [facility] [address] [address] [address] Moreno Amato Glucose [Mass/Vol] 110 mg/dL Critically high 74-106 [facility] Comment on above: Performed By: #### A MY, CMP, LIPA #### [facility] [address] [address] [address] Moreno Amato Potassium [Moles/Vol] 2.8 mmol/L Critically low 3.5-5.1 [facility] Comment on above: Performed By: #### A MY, CMP, LIPA #### [facility] [address] [place] [address] Dr. Moreno Amato Protein [Mass/Vol] 7.5 g/dL Normal 6.4-8.2 [facility] Comment on above: Performed By: #### A MY, CMP, LIPA #### [facility] [address] [address] [address] Moreno Amato Sodium [Moles/Vol] 137 mmol/L Normal 136-145 [facility] Comment on above: Performed By: #### A MY, CMP, LIPA #### [facility] [address] [place] [address] Dr. Moreno Amato Urea nitrogen [Mass/Vol] 26.0 mg/dL Critically high 7.0-18.0 [facility] Comment on above: Performed By: #### A MY, CMP, LIPA #### [facility] [address] [place] [address] Dr. Moreno Amato Urea nitrogen/Creatinine [Mass ratio] 15.9 mg/mg Normal [facility] Comment on above: Performed By: #### A MY, CMP, LIPA #### [facility] [address] [place] [address] Dr. Moreno Amato Protein Auto test strip (U) [Mass/Vol]Ordered By: Alaina Arce on 08-13-2021 Protein (U) [Mass/Vol] mg/dL Negative [facility] Specific gravity Auto test s trip (U) [Rel density]Ordered By: Alainanick Arce on 08-13-2021 Specific gravity (U) [Rel density] 1.017 1.001-1.03 0 [facility] Squamous epithelial cells de tection in urine sediment by light microscopyOrdered By: Alaina Arce on 08-13-2021 Epithelial cells.squamous LM Ql (Urine sed) 3-4 [HPF] 0-2 [facility] TROPONIN, HIGH SENSITIVITYon 08-13-2021 HSTROP 91.0 pg/mL Critically high 4.0-51.3 The [facility] Comment on above: Result Comment: CUT- OFF POINTS HAVE BEEN ESTABLISHED BASED ON THE FOURTH UNIVERSAL DEFINITIONS OF MYOCARDIAL INFARCTION. THE UPPER REFERENCE LIMIT (URL) OF TROPONIN, DEFINED THE 99TH PERCENTILE OF cTnI DISTRIBUTION IN A REFERENCE POPULATION, HAS BEEN CONFIRMED THE DECISION THRESHOLD FOR MS DIAGNOSIS. Performed By: #### A MY, CMP, LIPA #### [facility] [address] [address] [address] Moreno Amato HSTROP 109.0 pg/mL Critically high 4.0-51.3 [facility] Comment on above: Result Comment: CUT- OFF POINTS HAVE BEEN ESTABLISHED BASED ON THE FOURTH UNIVERSAL DEFINITIONS OF MYOCARDIAL INFARCTION. THE UPPER REFERENCE LIMIT (URL) OF TROPONIN, DEFINED THE 99TH PERCENTILE OF cTnI DISTRIBUTION IN A REFERENCE POPULATION, HAS BEEN CONFIRMED THE DECISION THRESHOLD FOR MS DIAGNOSIS. Performed By: #### H STROPN #### [facility] [address] [address] [address] Moreno Amato Troponin I.cardiac [Mass/vol ume] in Serum or Plasma by High sensitivity methodOrdered By: Alaina Arce on 08-13-2021 Troponin I.cardiac High sensitivity method [Mass/Vol] 50 pg/mL 0-15 [facility] Comment on above: Critical value result called at 1736 on 08/13/21 URINE MICROSCOPIC ONLYon BACTERIA SMALL Abnormal NONE SEEN [facility] Comment on above: Performed By: #### E RUR, UMICRO #### [facility] [address] [address] [address] Moreno Amato Bacteria identified Cx Nom (U) INDICATED Normal [facility] Comment on above: Performed By: #### E RUR, UMICRO #### [facility] [address] [place] [address] Dr. Moreno Amato CAST SEEN Abnormal NONE SEEN [facility] Comment on above: Performed By: #### E RUR, UMICRO #### [facility] [address] [place] [address] Dr. Moreno Amato Crystals LM Nom (Urine sed) NONE SEEN Normal NONE SEEN [facility] Comment on above: Performed By: #### E RUR, UMICRO #### [facility] [address] [place] [address] Dr. Moreno Amato Epithelial cells LM Ql (Urine sed) FEW Abnormal NONE SEEN /RARE [facility] Comment on above: Performed By: #### E RUR, UMICRO #### [facility] [address] [place] [address] Dr. Moreno Amato HYALINE CAST FEW Normal [facility] Comment on above: Performed By: #### E RUR, UMICRO #### [facility] [address] [place] [address] Dr. Moreno Amato MUCOUS NONE SEEN Normal NONE SEEN [facility] Comment on above: Performed By: #### E RUR, UMICRO #### [facility] [address] [place] [address] Dr. Moreno Amato RBC 2-5 Abnormal 0-2 [facility] Comment on above: Performed By: #### E RUR, UMICRO #### [facility] [address] [place] [address] Dr. Moreno Amato WBC 20-50 Abnormal NONE SEEN [facility] Comment on above: Performed By: #### E RUR, UMICRO #### [facility] [address] [place] [address] Dr. Moreno Amato Urine bacteria detection by automated methodOrdered By: Alaina Arce on 08-13-2021 Bacteria Auto Ql (U) None seen None Seen [facility] Urine clarity by refractomet ry automatedOrdered By: Alaina Arce on 08-13-2021 Clarity Refractometry automated (U) Cloudy Clear [facility] Urine culture routineOrdered By: Alaina Arce on 08-13-2021 Bacteria identified Cx Nom (U) 2 Days [facility] Urine glucose measurement by automated test strip (mass/volume)Ordered By: Alaina Arce on 08-13-2021 Glucose Auto test strip (U) [Mass/Vol] Normal mg/dL Normal [facility] Urine hemoglobin detection b y automated test stripOrdered By: Alaina Arce on 08-13-2021 Hemoglobin Auto test strip Ql (U) 1+ Negative [facility] Urine leukocyte esterase det ection by automated test stripOrdered By: Alaina Arce on 08-13-2021 Leukocyte esterase Auto test strip Ql (U) 1+ Negative [facility] Urobilinogen Auto test strip (U) [Mass/Vol]Ordered By: Alaian rAce on 08-13-2021 Urobilinogen (U) [Mass/Vol] Normal mg/dL Normal [facility] XR CHEST 1 Von 08-13-2021 [...] by: Vinay MANN Date: 2021-08-13 06:28 Normal [facility] pH Auto test strip (U)Ordere d By: Alaina Arce on 08-13-2021 pH (U) 5.5 [pH] 5.0-9.[address] [facility] KYARA DIGITAL SCREEN SELF REFERRAL W OR WO CAD BILATERALon 12-16-2020 [facility] KYARA DIGITAL SCREEN SELF REFERRAL [...] to the patient regarding the results. [employer] recommends annual mammograms for women 40 years and older. Interpreted by: Uvaldo Read Signed by: Uvaldo Read 12/16/[address] [facility] Vital Signs Date Time Vital Sign Value Performing Clinician Facility 01-01-2024 14:45-0500 Blood Pressure Location Dereck GROVES [facility] 01-01-2024 14:45-0500 Diastolic blood pressure 90 mm[Hg] Dereck GROVES [facility] 01-01-2024 14:45-0500 Heart rate 68 /min Dereck GROVES [facility] 01-01-2024 14:45-0500 Respiratory rate 16 /min Dereck GROVES [facility] 01-01-2024 14:45-0500 Systolic blood pressure 130 mm[Hg] Dereck GROVES [facility] 11-29-2023 13:00-0400 Diastolic blood pressure 80 mm[Hg] Astrit [facility] 11-29-2023 13:00-0400 Heart rate 68 /min [facility] 11-29-2023 13:00-0400 Mean blood pressure 92 mm[Hg] [facility] 11-29-2023 13:00-0400 Respiratory rate 16 /min [facility] 11-29-2023 13:00-0400 SaO2% (BldA) [Mass fraction] 98 % [facility] 11-29-2023 13:00-0400 Systolic blood pressure 116 mm[Hg] [facility] 11-29-2023 12:00-0400 Heart rate 71 /min [facility] 11-29-2023 12:00-0400 Respiratory rate 20 /min [facility] 11-29-2023 12:00-0400 SaO2% (BldA) [Mass fraction] 97 % [facility] 11-29-2023 12:00-0400 Systolic blood pressure 136 mm[Hg] [facility] 11-29-2023 11:53-0400 Body temperature 97.7 [degF] [facility] 11-29-2023 11:53-0400 Diastolic blood pressure 89 mm[Hg] [facility] 11-29-2023 11:53-0400 Heart rate 70 /min [facility] 11-29-2023 11:53-0400 Respiratory rate 18 /min [facility] 11-29-2023 11:53-0400 SaO2% (BldA) [Mass fraction] 96 % [facility] 11-29-2023 11:53-0400 Systolic blood pressure 149 mm[Hg] [facility] 02-14-2023 09:56-0500 Inhaled oxygen flow rate 1 L/min MD Shaikh Thompson Work Phone: [facility] 02-14-2023 08:00-0500 Body temperature 97.7 [degF] MD Shaikh Thompson Work Phone: [facility] 02-14-2023 08:00-0500 Diastolic blood pressure 69 mm[Hg] MD Shaikh Thompson Work Phone: [facility] 02-14-2023 08:00-0500 Heart rate 78 /min MD Shaikh Thompson Work Phone: [facility] 02-14-2023 08:00-0500 Respiratory rate 20 /min MD Shaikh Thompson Work Phone: [facility] 02-14-2023 08:00-0500 SaO2% (BldA) [Mass fraction] 95 % MD Shaikh Thompson Work Phone: [facility] 02-14-2023 08:00-0500 Systolic blood pressure 118 mm[Hg] MD Shaikh Thompson Work Phone: [facility] 02-14-2023 05:51-0500 Body weight 69.9 kg MD Shaikh Thompson Work Phone: [facility] 02-13-2023 12:53-0500 Body height 157.48 cm MD Shaikh Thompson Work Phone: [facility] 02-10-2023 17:00-0500 Heart rate 85 /min [facility] 02-10-2023 16:38-0500 Diastolic blood pressure 80 mm[Hg] [facility] 02-10-2023 16:38-0500 Heart rate 80 /min [facility] 02-10-2023 16:38-0500 Mean blood pressure 99 mm[Hg] [facility] 02-10-2023 16:38-0500 Respiratory rate 18 /min [facility] 02-10-2023 16:38-0500 SaO2% (BldA) [Mass fraction] 95 % [facility] 02-10-2023 16:38-0500 Systolic blood pressure 138 mm[Hg] [facility] 02-10-2023 15:40-0500 Diastolic blood pressure 92 mm[Hg] [facility] 02-10-2023 15:40-0500 Heart rate 90 /min [facility] 02-10-2023 15:40-0500 Mean blood pressure 105 mm[Hg] [facility] 02-10-2023 15:40-0500 Respiratory rate 20 /min [facility] 02-10-2023 15:40-0500 SaO2% (BldA) [Mass fraction] 94 % [facility] 02-10-2023 15:40-0500 Systolic blood pressure 132 mm[Hg] [facility] 02-10-2023 14:42-0500 Body temperature 98.24 [degF] [facility] 02-10-2023 14:42-0500 Heart rate 93 /min [facility] 02-10-2023 14:42-0500 Respiratory rate 24 /min [facility] 02-10-2023 14:00-0500 Blood Pressure Location Jaxson Johnson [facility] 02-10-2023 14:00-0500 Body temperature 96.8 [degF] [...] 10-15-2022 17:36-0400 Blood Pressure Location Damion Robledopsey [facility] 10-15-2022 17:36-0400 Body temperature 97.34 [degF] Damion Ham [facility] 10-15-2022 17:36-0400 Diastolic blood pressure 76 mm[Hg] Damion Ham [facility] 10-15-2022 17:36-0400 Heart rate 60 /min Damion Ham [facility] 10-15-2022 17:36-0400 SaO2% (BldA) [Mass fraction] 96 % Damion Robledopsey [facility] 10-15-2022 17:36-0400 Systolic blood pressure 122 mm[Hg] Damion Cheek [facility] 10-09-2022 14:24-0400 Body height 157.5 cm Gurmeet Ojeda MD Work Phone: [facility] 10-09-2022 14:24-0400 Body temperature 97.5 [degF] Gurmeet Ojeda MD Work Phone: [facility] 10-09-2022 14:24-0400 Body weight 71.26 kg Gurmeet Ojeda MD Work Phone: [facility] 10-09-2022 14:24-0400 Diastolic blood pressure 60 mm[Hg] Gurmeet Ojeda MD Work Phone: [facility] 10-09-2022 14:24-0400 Heart rate 60 /min Gurmeet Ojeda MD Work Phone: [facility] 10-09-2022 14:24-0400 Systolic blood pressure 91 mm[Hg] Gurmeet Ojeda MD Work Phone: [facility] 08-09-2022 14:56-0400 Body height 157.5 cm Gurmeet Ojeda MD Work Phone: [facility] 08-09-2022 14:56-0400 Body temperature 97.7 [degF] Gurmeet Ojeda MD Work Phone: [facility] 08-09-2022 14:56-0400 Body weight 72.53 kg Gurmeet Ojeda MD Work Phone: [facility] 08-09-2022 14:56-0400 Diastolic blood pressure 64 mm[Hg] Gurmeet Ojeda MD Work Phone: [facility] 08-09-2022 14:56-0400 Heart rate 65 /min Gurmeet Ojeda MD Work Phone: [facility] 08-09-2022 14:56-0400 Systolic blood pressure 98 mm[Hg] Gurmeet Ojeda MD Work Phone: [facility] 06-14-2022 12:57-0400 Blood Pressure Location Ayala SALAM [facility] 06-14-2022 12:57-0400 Diastolic blood pressure 74 mm[Hg] Ayala SALAM [facility] 06-14-2022 12:57-0400 Heart rate 80 /min Ayala SALAM [facility] 06-14-2022 12:57-0400 Respiratory rate 16 /min Ayala SALAM [facility] 06-14-2022 12:57-0400 Systolic blood pressure 118 mm[Hg] Ayala SALAM [facility] 06-06-2022 10:13-0400 Blood Pressure Location TRUDY NGUYỄN [facility] 06-06-2022 10:13-0400 Diastolic blood pressure 88 mm[Hg] TRUDY NGUYỄN [facility] 06-06-2022 10:13-0400 Heart rate 74 /min TRUDY NGUYỄN [facility] 06-06-2022 10:13-0400 Systolic blood pressure 144 mm[Hg] TRUDY NGUYỄN [facility] 05-23-2022 10:41-0400 Blood Pressure Location TRUDY NGUYỄN [facility] 05-23-2022 10:41-0400 Diastolic blood pressure 85 mm[Hg] TRUDY NGUYỄN [facility] 05-23-2022 10:41-0400 Heart rate 72 /min TRUDY NGUYỄN [facility] 05-23-2022 10:41-0400 Systolic blood pressure 127 mm[Hg] TRUDY NGUYỄN [facility] 04-11-2022 11:01-0500 Blood Pressure Location TRUDY NGUYỄN [facility] 04-11-2022 11:01-0500 Diastolic blood pressure 88 mm[Hg] TRUDY NGUYỄN [facility] 04-11-2022 11:01-0500 Heart rate 71 /min TRUDY ADRIAN [facility] 04-11-2022 11:01-0500 Systolic blood pressure 146 mm[Hg] TRUDY ADRIAN [facility] 03-19-2022 16:35-0500 Body height 163.83 cm Padmini aWynemond Other [employer] [facility] [employer] Other 03-19-2022 16:35-0500 Body mass index (BMI) [Ratio] 27.37 kg/m2 Padmini Waynemond Other [employer] Other 03-19-2022 16:35-0500 Body temperature 98.9 [degF] Padmini Waynemond Other [employer] Other 03-19-2022 16:35-0500 Body weight 73.48 kg Padmini Sam Other [employer] Other 03-19-2022 16:35-0500 Respiratory rate 18 /min Padmini Waynemond Other [employer] Other 03-19-2022 16:35-0500 SaO2% (BldA) [Mass fraction] 96 % Padmini Waynemond Other [employer] Other 03-13-2022 10:12-0500 Diastolic blood pressure 59 mm[Hg] MD Shaikh Thompson Work Phone: [facility] 03-13-2022 10:12-0500 Heart rate 77 /min MD Shaikh Thompson Work Phone: [facility] 03-13-2022 10:12-0500 Respiratory rate 18 /min MD Shaikh Thompson Work Phone: [facility] 03-13-2022 10:12-0500 SaO2% (BldA) [Mass fraction] 98 % MD Shaikh Thompson Work Phone: [facility] 03-13-2022 10:12-0500 Systolic blood pressure 93 mm[Hg] MD Shaikh Thompson Work Phone: [facility] 03-13-2022 07:54-0500 Body height 162.56 cm MD Shaikh Thompson Work Phone: [facility] 03-13-2022 07:54-0500 Body temperature 98 [degF] MD Shaikh Thompson Work Phone: [facility] 03-13-2022 07:54-0500 Body weight 73.48 kg MD Shaikh Thompson Work Phone: [facility] 03-12-2022 08:58-0500 Body height 160.02 cm Shaikh Donna Work Phone: [facility] [address] DO Work Phone: 03-12-2022 08:58-0500 Body mass index (BMI) [Ratio] 28.7 kg/m2 Dunbar Donna Work Phone: [facility] [address] DO Work Phone: 03-12-2022 08:58-0500 Body surface area Derived from formula 1.77 m2 Shaikh Jabiergeovanna Work Phone: [facility] [address] DO Work Phone: 03-12-2022 08:58-0500 Body weight 73.48 kg Dunbarkaylen Eugenewayevgeniy Work Phone: [facility] [address] DO Work Phone: 03-12-2022 08:58-0500 Diastolic blood pressure 78 mm[Hg] Dunbar Fawwad Work Phone: [facility] [address] DO Work Phone: 03-12-2022 08:58-0500 Heart rate 66 /min Dunbar Fawwad Work Phone: [facility] DO Work Phone: 03-12-2022 08:58-0500 Systolic blood pressure 110 mm[Hg] Dunbar Fawwad Work Phone: [facility] DO Work Phone: 01-23-2022 12:00-0500 72 1 Dunbar Fawwad Work Phone: [facility] [address] [place] Work Phone: Comment on above: [id number] 11-09-2021 13:26-0400 Body height 160.02 cm Shaikh Diyawwad Work Phone: [facility] [address] DO Work Phone: 11-09-2021 13:26-0400 Body mass index (BMI) [Ratio] 27.83 kg/m2 Dunbar Fawwad Work Phone: [facility] DO Work Phone: 11-09-2021 13:26-0400 Body surface area Derived from formula 1.75 m2 Dunbar Fawwad Work Phone: [facility] DO Work Phone: 11-09-2021 13:26-0400 Body weight 71.27 kg Dunbar Fawwad Work Phone: [facility] DO Work Phone: 11-09-2021 13:26-0400 Diastolic blood pressure 82 mm[Hg] Dunbar Fawwad Work Phone: [facility] [address] DO Work Phone: 11-09-2021 13:26-0400 Heart rate 64 /min Shaikh Diyawwad Work Phone: [facility] [address] DO Work Phone: 11-09-2021 13:26-0400 Systolic blood pressure 128 mm[Hg] Shaikh Diyawwad Work Phone: [facility] [address] DO Work Phone: 09-18-2021 10:26-0400 Diastolic blood pressure 80 mm[Hg] Dunbar Fawwad Work Phone: [facility] DO Work Phone: 09-18-2021 10:26-0400 Systolic blood pressure 178 mm[Hg] Shaikh Diyawwad Work Phone: [facility] DO Work Phone: 09-18-2021 10:19-0400 Body height 162.56 cm Shaikh Diyawwad Work Phone: [facility] DO Work Phone: 09-18-2021 10:19-0400 Body mass index (BMI) [Ratio] 26.09 kg/m2 Shaikh Diyawwad Work Phone: [facility] DO Work Phone: 09-18-2021 10:19-0400 Body surface area Derived from formula 1.74 m2 Dunbar Fawwad Work Phone: [facility] DO Work Phone: 08-01-2022 10:19-0400 Body weight 68.95 kg Shaikh Donna Work Phone: [facility] [address] DO Work Phone: 09-18-2021 10:19-0400 Diastolic blood pressure 80 mm[Hg] Shaikh Leoneld Work Phone: [facility] DO Work Phone: 09-18-2021 10:19-0400 Heart rate 60 /min Shaikh Leoneld Work Phone: [facility] DO Work Phone: 09-18-2021 10:19-0400 Systolic blood pressure 180 mm[Hg] Shaikh Leoneld Work Phone: [facility] DO Work Phone: 08-23-2021 14:00-0400 Body temperature 98.9 [degF] Linn Missler Other [employer] Other 08-23-2021 14:00-0400 Body weight 66.13 kg Linn Missler Other [employer] Other 08-23-2021 14:00-0400 Diastolic blood pressure 87 mm[Hg] Linn Missler Other [employer] Other 08-23-2021 14:00-0400 Respiratory rate 18 /min Linn Missler Other [employer] Other 08-23-2021 14:00-0400 SaO2% (BldA) [Mass fraction] 96 % Linn Missler Other [employer] Other 08-23-2021 14:00-0400 Systolic blood pressure 137 mm[Hg] Linn Missler Other [facility] [employer] Other 08-17-2021 12:00-0400 Diastolic blood pressure 94 mm[Hg] PHYSICIAN NO [facility] 08-17-2021 12:00-0400 Heart rate 78 /min PHYSICIAN NO [facility] 08-17-2021 12:00-0400 Respiratory rate 18 /min PHYSICIAN NO [facility] 08-17-2021 12:00-0400 SaO2% (BldA) [Mass fraction] 95 % PHYSICIAN NO [facility] 08-17-2021 12:00-0400 Systolic blood pressure 152 mm[Hg] PHYSICIAN NO [facility] 08-17-2021 08:00-0400 Body temperature 97.5 [degF] PHYSICIAN NO [facility] 08-17-2021 05:57-0400 Body weight 75.8 kg PHYSICIAN NO [facility] 08-17-2021 00:44-0400 Inhaled oxygen flow rate 2 L/min PHYSICIAN NO [facility] 08-16-2021 14:43-0400 Body height 162.56 cm PHYSICIAN NO [facility] 08-16-2021 14:43-0400 Body mass index (BMI) [Ratio] 25.6 kg/m2 PHYSICIAN NO [facility] Encounters Encounter Date Encounter Type Care Provider Facility Start: 05-04-2024 ambulatory Dereck GROVES Facil ty:[id number] Start: 01-09-2024 End: 03-10-2024 Pre-admission assessment Dereck GROVES [facility] Start: 01-09-2024 ambulatory Juany C Sammie Facility :[facility] Start: 01-05-2024 End: 01-05-2024 ambulatory Juany C Sammie Facility:[facility] Start: 01-05-2024 End: 01-05-2024 Patient encounter procedure Juany C Sammie [facility] Start: 01-02-2024 End: 03-04-2024 Pre-admission assessment Dereck R GROVES [facility] Start: 01-01-2024 End: 01-01-2024 ambulatory Dereck GROVES Facility:[facility] Start: 01-01-2024 End: 01-01-2024 Patient encounter procedure Dereck GROVES [facility] Start: 11-29-2023 End: 11-29-2023 Emergency department patient visit Gabby Sandsnate Facility:[facility] Start: 10-11-2023 End: 10-11-2023 Clinisync Result Encounter [...] Start: 06-03-2023 End: 06-03-2023 ambulatory TRUDY ADRIAN Facility:[facility] Start: 06-03-2023 End: 06-03-2023 Patient encounter procedure TRUDY ADRIAN [facility] Start: 05-17-2023 End: 05-17-2023 ambulatory ROSIE ORTEZER Not Available Start: 05-13-2023 End: 05-13-2023 ambulatory DUNBAR FAWWAD Not Available Start: 03-12-2023 End: 03-12-[address] [facility] Start: 03-12-2023 End: 03-12-2023 ambulatory MD Shaikh Thompson Work Phone: [facility] Work Phone: Start: 03-12-2023 End: 03-12-2023 Patient encounter procedure MD Shaikh Thompson Work Phone: [facility] [place] Work Phone: Start: 03-12-2023 End: 03-12-2023 ambulatory [facility] Start: 02-19-2023 End: 02-19-2023 ambulatory SHAIKH DONNA Not Available Start: 02-12-2023 End: 02-14-2023 Evaluation and management of inpatient Obreinaldo Cheo Talbotdennishannah Facility:[facility] Start: 02-12-2023 End: 02-14-2023 Evaluation and management of inpatient MD Shaikh Thompson Work Phone: [facility] Work Phone: Start: 02-10-2023 End: 02-10-2023 Lab Drop off Jaxson Johnson [facility] Start: 02-10-2023 End: 02-10-2023 Emergency department patient visit Gabby Bossjason [facility] Start: 02-10-2023 End: 02-10-2023 ambulatory Jaxson Johnson Facility:[facility] Start: 02-10-2023 End: 02-10-2023 Patient encounter procedure Jaxson Johnson [facility] Start: 01-30-2023 End: 01-30-2023 ambulatory TRUDY ADRIAN Facility:[facility] Start: 01-30-2023 End: 01-30-2023 Patient encounter procedure TRUDY ADRIAN [facility] Start: 10-29-2022 Orders Only Debra naik [...] End: 10-15-2022 Lab Drop off Damion Cheek [facility] Start: 10-15-2022 End: 10-15-2022 Patient encounter procedure Damion Cheek [facility] Start: 10-15-2022 Rx Renewal Dunbar Donna Work Phone: [facility] 600 DO Work Phone: Start: 10-09-2022 End: 10-10-2022 ambulatory Rosie Harris DO Work Phone: Kidney [facility] [place] Start: 10-09-2022 End: 10-09-2022 Patient encounter procedure Gurmeet Ojeda MD Work Phone: Kidney [facility] [place] Comment on above: Stage 3 chronic kidn ey disease, unspecified whether stage 3a or 3b CKD (HCC) (Primary Dx); Tobacco abuse; Hypertension, renal disease; Mixed hyperlipidemia; Atrophic kidney, acquired Start: 08-23-2022 End: 08-24-2022 ambulatory DEBRA FISHMAN [facility] Start: 08-09-2022 End: 08-09-2022 Patient encounter procedure Gurmeet Ojeda MD Work Phone: Kidney [facility] Comment on above: Stage 3b chronic kid domingo disease (HCC) (Primary Dx); Hypertension, unspecified type; Orthostatic hypotension; Alkalosis; Hypercholesteremia Start: 08-09-2022 End: 08-10-2022 ambulatory Debra Fishman MD Work Phone: Kidney [facility] Start: 06-19-2022 ambulatory SHAIKH Enrique THOMPSON Facilit y:H1 Start: 06-14-2022 End: 06-14-2022 Patient encounter procedure Jamie BILLS [facility] Start: 06-12-2022 End: 06-13-2022 ambulatory SHAIKH Enrique OROZCOYevgeniy Facility:H1 Start: 06-06-2022 End: 06-06-2022 Patient encounter procedure TRUDY ADRIAN [facility] Start: 05-23-2022 End: 05-23-2022 Patient encounter procedure TRUDY ADRIAN [facility] Start: 04-30-2022 End: 05-01-2022 ambulatory SHAIKH Enrique THOMPSON Facility:H1 Start: 04-11-2022 End: 04-11-2022 Patient encounter procedure TRUDY ADRIAN [facility] Start: 04-05-2022 End: 04-05-2022 ambulatory Kevyn Sharma Other [employer] Other Start: 04-05-2022 Telephone encounter Kevyn Carmichael [facility] Pulmonology Technician Start: 03-27-2022 End: 03-28-[address] MARQUEZ BEAL Facility:[facility]1 Start: 03-19-2022 End: 03-19-2022 ambulatory Padmini Sam Other [facility] [employer] Other Start: 03-19-2022 Office outpatient vi sit 15 minutes Padmini Sam [facility] Start: 03-13-2022 End: 03-13-2022 Admission to same day surgery center MD Shaikh Thompson Work Phone: [facility] Work Phone: Start: 03-13-2022 End: 03-13-2022 ambulatory MD Shaikh Thompson Work Phone: [facility] Work Phone: Start: 03-12-2022 Office outpatient vi sit 25 minutes Shaikh Donna Work Phone: [facility] 250 DO Work Phone: Start: 02-26-2022 End: 02-26-[address] XAVIER STAFFORD . Facility:[facility]1 Start: 02-19-2022 End: 02-20-2022 ambulatory SHAIKH Enrique THOMPSON Facility:[facility]1 Start: 01-29-2022 Chart Update Shaikh Donna Work Phone: [facility] 600 DO Work Phone: Start: 01-23-[address] Marquez Beal II Facility:[id number] Start: 01-23-2022 Patient encounter procedure Shaikh Donna Work Phone: [facility] 250 DO Work Phone: Start: 11-16-2021 Rx Renewal Shaikh Donna Work Phone: [facility] 600 DO Work Phone: Start: 11-09-2021 ambulatory Marquez Polo vinay Hayshussein II Facility: Start: 10-30-2021 End: 10-31-2021 ambulatory DUNBAR H DONNA Facility:[facility]1 Start: 10-24-2021 Chart Update Shaikh Leonelyevgeniy Work Phone: [facility] 250 DO Work Phone: Start: 10-17-[address] Marquez Beal II Facility:[id number] Start: 09-18-2021 ambulatory Marquez Hayshussein II Facility: Start: 09-18-2021 Office outpatient vi sit 25 minutes Shaikh Jabiergeovanna Work Phone: [facility] 250 DO Work Phone: Start: 09-18-2021 End: 09-18-2021 Patient encounter procedure PHYSICIAN NO [facility] [place] Start: 09-18-2021 ambulatory Marquez Andrésnik ZI Faci lity:[id number] Start: 08-23-2021 ([facility] CHUCK) [facility] Transition of Care Linn Byrne [facility] Start: 08-23-2021 End: 08-23-2021 ambulatory Linn Byrne Other [facility] [employer] Other Start: 08-23-2021 End: 08-23-2021 Patient encounter procedure PHYSICIAN NO [facility] Start: 08-17-2021 End: 08-17-2021 Patient encounter procedure PHYSICIAN NO [facility]-Electrodiagnostics Start: 08-17-2021 ambulatory Marquez Polo vinay Bowennik II Facility:[id number] Start: 08-16-[address] Jaycob eNwman Facility:[id number] Start: 08-15-2021 ambulatory Marquez Dianeric vinay Hayshussein II Facility:[id number] Start: 08-14-2021 ambulatory Marquez Hayshussein II Facility:[id number] Start: 08-13-2021 End: 08-17-2021 Evaluation and management of inpatient PHYSICIAN NO [facility] Start: 08-13-2021 End: 08-13-2021 ambulatory Marquez Beal II Facility:[id number] Start: 12-08-2020 End: 12-11-[address] [facility] Start: 12-08-2020 End: 12-10-2020 Subsequent hospital visit by physician [facility] Mammography Comment on above: Encounter [...] Screening for malign ant neoplasm of colon [facility] Start: 11-20-2024 Screening for malign ant neoplasm of cervix [facility] Start: 02-21-2024 Screening for malign ant neoplasm of breast Mammogram [facility] Start: 11-20-2023 End: 11-20-2023 Patient encounter procedure 11/20/2023 5:30 PM EDT Office Visit [facility] [address] [place] [address] Sadaf Hill NP [address] [place] [address] [facility] Start: 10-20-2023 Influenza vaccination Influenza Vacc ine (#1) [facility] Start: 10-10-2023 End: 12-10-2023 Renal function 2000 panel - Serum or Plasma RENAL FUNCTION PANEL Lab Routine Stage 3 chronic kidney disease, unspecified whether stage 3a or 3b CKD (HCC) Expected: 10/10/2023, Expires: 12/10/2023 [facility] Work Phone: Comment on above: Expected: 10/10/2023 , Expires: 12/10/2023 Start: 08-24-2023 SERUM CREATININE SERUM CREATININE [facility] Start: 03-12-2023 FUV, Provider: Marquez Beal, Status: Pen, Time: 11:00 AM ISRRAELV, Provider: Marquez Beal, Status: Pen, Time: 11:00 AM -[facility] 250 DO Work Phone: Start: 02-14-2023 [facility] Start: 02-12-2023 Microbial culture of sputum [facility] Start: 02-12-2023 Aerobic microbial culture Aerobic Cu lture [facility] Start: 02-12-2023 Hospital admission [facility] Start: 02-12-2023 [facility] Start: 10-19-2022 Influenza vaccination [facility] Start: 08-09-2022 End: 10-09-2022 25-hydroxyvitamin D3 [Mass/volume] in Serum or Plasma VITAMIN D 25 HYDROXY Lab Routine Stage 3b chronic kidney disease (HCC) Expected: 08/09/2022, Expires: 10/09/2022 [facility] Work Phone: Comment on above: Expected: 08/09/2022 , Expires: 10/09/2022 Start: 08-09-2022 End: 10-09-2022 MONOCLONAL PROTEIN, SERUM (BLOOD) MONOCLONAL PROTEIN, SERUM (BLOOD) Lab Routine Stage 3b chronic kidney disease (HCC) Expected: 08/09/2022, Expires: 10/09/2022 [facility] Work Phone: Comment on above: Expected: 08/09/2022 , Expires: 10/09/2022 Start: 08-09-2022 End: 10-09-2022 Renal function 2000 panel - Serum or Plasma RENAL FUNCTION PANEL Lab Routine Stage 3b chronic kidney disease (HCC) Expected: 08/09/2022, Expires: 10/09/2022 [facility] Work Phone: Comment on above: Expected: 08/09/2022 , Expires: 10/09/2022 Start: 03-13-2022 [facility] Start: 03-12-2022 FUV, Provider: Marquez Beal, Status: Pen, Time: 8:30 AM FUV, Provider: Marquez Beal, Status: Pen, Time: 8:30 AM -[facility] 250 DO Work Phone: Start: 02-18-2022 DEPRESSION ASSESSMENT DEPRESSION ASS ESSMENT [facility] Start: 12-21-2021 FUV, Provider: Marquez Beal, Status: Pen, Time: 12:50 PM FUV, Provider: Marquez Beal, Status: Pen, Time: 12:50 PM -[facility]-[place] 600 DO Work Phone: Start: 12-08-[address] [facility] Start: 11-22-2021 STRESS NUC, Provider : TRENA PAGEI NUCLEAR 01,[id number], Status: Pen, Time: 12:00 PM STRESS NUC, Provider: TRENA HHVI NUCLEAR 01,[id number],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 section and content) DATE CREATED AUTHOR 12/17/2020 [facility] DATE CREATED AUTHOR AUTHOR'S ORGANIZ ATION 01/27/2022 [facility] DATE CREATED AUTHOR AUTHOR'S ORGANIZ ATION 03/06/2022 [facility] DATE CREATED AUTHOR AUTHOR'S ORGANIZ ATION 07/03/2022 [facility] DATE CREATED AUTHOR AUTHOR'S ORGANIZ ATION 08/28/2022 [facility] DATE CREATED AUTHOR AUTHOR'S ORGANIZ ATION 10/30/2022 [facility] DATE CREATED AUTHOR AUTHOR'S ORGANIZ ATION 03/31/2023 [facility] DATE CREATED AUTHOR AUTHOR'S ORGANIZ ATION 08/13/2023 [facility] DATE CREATED AUTHOR AUTHOR'S ORGANIZ ATION 12/02/2023 [facility] DATE CREATED AUTHOR AUTHOR'S ORGANIZ ATION 12/11/2023 [facility] DATE CREATED AUTHOR AUTHOR'S ORGANIZ ATION 01/04/2024 [facility] DATE CREATED AUTHOR AUTHOR'S ORGANIZ ATION 03/31/2024 [facility] Care Teams (unrecognized sec [...] Active Kevyn Sharma MD Attending Provider Active 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 [address] PCP - General Primary Care 08/09/22 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 Specialty Start Date End Date Shaikh Thompson MD [address] [place] [address] PCP - General Primary Care 08/09/22 Team [...] March 12, 2023 End: March 12, 2023 [employer] Relationship Specialty Start Date End Date Mikhail Dutta MD [address] [place] [address] PCP - General Family Medicine 09/30/23 Sadaf Hill NP [address] [place] [address] Nurse Practitioner Family Medicine 09/30/23 Source Comments (unrecognize d section and content) In the event this informatio n is protected by the Federal Confidentiality of Alcohol and Drug Abuse Patient Records regulations: The Federal rules restrict any use of the information to criminally investigate or prosecute any alcohol or drug abuse patient.[facility] the event this information is protected by the Federal Confidentiality of Alcohol and Drug Abuse Patient Records regulations: The Federal rules restrict any use of the information to criminally investigate or prosecute any alcohol or drug abuse patient.[facility] the event this information is protected by the Federal Confidentiality of Alcohol and Drug Abuse Patient Records regulations: The Federal rules restrict any use of the information to criminally investigate or prosecute any alcohol or drug abuse patient.[facility] the event this information is protected by the Federal Confidentiality of Alcohol and Drug Abuse Patient Records regulations: The Federal rules restrict any use of the information to criminally investigate or prosecute any alcohol or drug abuse patient.[facility] the event this information is protected by the Federal Confidentiality of Alcohol and Drug Abuse Patient Records regulations: The Federal rules restrict any use of the information to criminally investigate or prosecute any alcohol or drug abuse patient.[facility] the event this information is protected by the Federal Confidentiality of Alcohol and Drug Abuse Patient Records regulations: The Federal rules restrict any use of the information to criminally investigate or prosecute any alcohol or drug abuse patient.[facility] the event this information is protected by the Federal Confidentiality of Alcohol and Drug Abuse Patient Records regulations: The Federal rules restrict any use of the information to criminally investigate or prosecute any alcohol or drug abuse patient.[facility] FOR RECORDS PERTAINING TO PATIENTS WHO [...] BE BASED ON THE PRIMARY CLINICAL RECORDS. [facility]. provides no warranty or guarantee of the accuracy or completeness of information in this document.
[2024-04-15 12:33] LABS: Anion Gap 13.8; BUN Creatinine Ratio 16.2; Calcium 9.5 mg/dL (8.5-10.1); Carbon Dioxide 27.8 mmol/L (21.0-32.0); Chloride 107 mmol/L (98-107); Creatine Kinase 90 U/L (26-192); Estimated GFR (African America 48 (>=60 mL/min/1.73m^2); Estimated GFR (Non-African Ame 40 (>=60 mL/min/1.73m^2); Glucose 99 mg/dL (74-106); Magnesium 1.8 mg/dL (1.8-2.4); Potassium 4.6 mmol/L (3.5-5.1); Sodium 144 mmol/L (136-145)
== END 2024-04-15 08:50 | disposition home or self-care (01) ==
LOC: LAB 08:52
PROVIDERS: PCP Family Medicine
DX: N18.32 Chronic kidney disease, stage 3b (principal)
CPT/HCPCS: 36415; 80048; 82550; 83735

== ENCOUNTER 2024-05-04 07:41 | Day surgery (SDC) | payer OTHER, SELFPAY ==
[2024-05-04 07:50] VITALS: BP 121/76; PULSE 75; TEMP 36.1; O2SAT 96
--- OUTSIDE RECORDS SUMMARY | 2024-05-04 07:55 | XMS_ITS | CCD ---
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 Neutrophils/100 WBC (Bld) 55.6 % 43.0 - 75.0 % [facility] Platelet mean volume (Bld) [Entitic vol] 9.5 fL 9.5 - 13.5 fL [facility] TBH EO # 0.6 [facility]H PLT 202 [facility] TB RBC 5.06 [facility] TB WBC 9.1 [facility] Amino Transferaseo n 03-12-2023 AST [Catalytic activity/Vol] 20 U/L Normal [facility] Comment on above: Order Comment: PT FA STED 121 HOURS Performed By: #### A ST, LIPID, BMP #### [facility] [address] [place] [id number] [place] Aspartate aminotransferase [ Enzymatic activity/volume] in Serum or PlasmaOrdered By: Marquez Beal on 03-12-2023 AST [Catalytic activity/Vol] 20 U/L [facility] Basic Metabolic Panelon 02-19 Anion gap [Moles/Vol] 8.4 mmol/L Normal 6.0-15.0 [facility] Comment on above: Order Comment: PT FA STED 121 HOURS Performed By: #### A ST, LIPID, BMP #### [facility] [address] [place] [address] [place] Calcium [Mass/Vol] 9.8 mg/dL Normal 8.6-10.3 [facility] Comment on above: Order Comment: PT FA STED 121 HOURS Performed By: #### A ST, LIPID, BMP #### [facility] [address] [place] [address] [place] Chloride [Moles/Vol] 108 mmol/L High 98-107 [facility] Comment on above: Order Comment: PT FA STED 121 HOURS Performed By: #### A ST, LIPID, BMP #### [facility] [address] [place] [id number] [place] CO2 [Moles/Vol] 30.0 mmol/L Normal 21.0-31.0 [facility] Comment on above: Order Comment: PT FA STED 121 HOURS Performed By: #### A ST, LIPID, BMP #### [facility] [address] [place] [id number] [place] Creatinine [Mass/Vol] 1.39 mg/dL High 0.60-1.20 [facility] Comment on above: Order Comment: PT FA STED 121 HOURS Performed By: #### A ST, LIPID, BMP #### [facility] [address] [place] [address] [place] GFR/1.73 sq M.predicted MDRD (S/P/Bld) [Vol rate/Area] 43.442 mL/min/{1.73_m2} Normal [facility] Comment on above: Order Comment: PT FA STED 121 HOURS Performed By: #### A ST, LIPID, BMP #### [facility] [address] [place] [address] [place] Glucose [Mass/Vol] 93 mg/dL Normal 70-100 [facility] Comment on above: Order Comment: PT FA STED 121 HOURS Result Comment: [facility] Glucose Reference Range is dependent on time and content of last meal. Glucose of more than 200 mg/dL in a nonstressed, ambulatory subject supports the diagnosis of Diabetes Mellitus. ADA recommended reference range Performed By: #### A ST, LIPID, BMP #### [facility] [address] [place] [address] [place] Potassium [Moles/Vol] 5.4 mmol/L High 3.5-5.1 [facility] Comment on above: Order Comment: PT FA STED 121 HOURS Performed By: #### A ST, LIPID, BMP #### [facility] [address] [place] [address] [place] Sodium [Moles/Vol] 141 mmol/L Normal 136-145 [facility] Comment on above: Order Comment: PT FA STED 121 HOURS Performed By: #### A ST, LIPID, BMP #### [facility] [address] [place] [address] [place] Urea nitrogen [Mass/Vol] 18 mg/dL Normal 7-25 [facility] Comment on above: Order Comment: PT FA STED 121 HOURS Performed By: #### A ST, LIPID, BMP #### [facility] [address] [place] [id number] [place] Calcium [Mass/volume] in Ser um or PlasmaOrdered By: Marquez Beal on 03-12-2023 Calcium [Mass/Vol] 9.8 mg/dL 8.6-10.3 [facility] Carbon dioxide, total [Moles /volume] in Serum or PlasmaOrdered By: Marquez Beal on 03-12-2023 CO2 [Moles/Vol] 30.0 mmol/L 21.0-31.0 [facility] Chloride [Moles/volume] in S oralia or PlasmaOrdered By: Marquez Beal on 03-12-2023 Chloride [Moles/Vol] 108 mmol/L 98-107 [facility] Cholesterol [Mass/volume] in Serum or PlasmaOrdered By: Marquez Beal on 03-12-2023 Cholesterol [Mass/Vol] 171 mg/dL 140-200 [facility] Comment on above: Chol less than 200 m g/dl low riskChol 201-239 mg/dl borderline riskChol 240 mg/dl and greater high risk Cholesterol in LDL Calc [Mas s/Vol]Ordered By: Marquez Beal on 03-12-2023 Cholesterol in LDL [Mass/Vol] 93 mg/dL 0-100 [facility] Comment on above: LDL ATP III CLASSIFI CATIONLDL less than 100 mg/dL OptimalLDL 100-129 mg/dL Near or above optimalLDL 130-159 mg/dL Borderline highLDL 160-189 mg/dL HighLDL greater than 189 mg/dL Very high Cholesterol in VLDL Calc [Ma ss/Vol]Ordered By: Marquez Beal on 03-12-2023 Cholesterol in VLDL [Mass/Vol] 33 mg/dL [facility] Creatinine [Mass/volume] in Serum or PlasmaOrdered By: Marquez Beal on 03-12-2023 Creatinine [Mass/Vol] 1.39 mg/dL 0.60-1.20 [facility] Glucose [Mass/volume] in Ser um or PlasmaOrdered By: Marquez Beal on 03-12-2023 Glucose [Mass/Vol] 93 mg/dL 70-100 [facility] Comment on above: ADA recommended refe rence rangeRandom Glucose Reference Range is dependent on time and content of last meal. Glucose of more than 200 mg/dL in a nonstressed, ambulatory subject supports the diagnosis of Diabetes Mellitus. Lipid Panelon 03-12-2023 Cholesterol [Mass/Vol] 171 mg/dL Normal 140-200 [facility] Comment on above: Order Comment: PT FA STED 121 HOURS Result Comment: Chol less than 200 mg/dl low risk Chol 201-239 mg/dl borderline risk Chol 240 mg/dl and greater high risk Performed By: #### A ST, LIPID, BMP #### [facility] [address] [place] [address] [place] Cholesterol in HDL [Mass/Vol] 45 mg/dL Normal 23-92 [facility] Comment on above: Order Comment: PT FA STED 121 HOURS Result Comment: HDL CHOL ATP-III CLASSIFICATION Cardiovascular Risk HDL > or equal to 60 mg/dL LOW HDL < 40 mg/dL HIGH Performed By: #### A ST, LIPID, BMP #### [facility] [address] Cholesterol.total/Chol esterol in HDL [Mass ratio] 3.8 {ratio} Normal <5.0 [facility] Comment on above: Order Comment: PT FA STED 121 HOURS Result Comment: PERF ORMED BY: [place] [address] PATHOLOGIST [employer] JERAMY CALDWELL M.D. Performed By: #### A ST, LIPID, BMP #### [facility] [address] LDL Cholesterol,Calculated 93 mg/dL Normal 0-100 [facility] Comment on above: Order Comment: PT FA STED 121 HOURS Result Comment: LDL ATP III CLASSIFICATION LDL less than 100 mg/dL Optimal LDL 100-129 mg/dL Near or above optimal LDL 130-159 mg/dL Borderline high LDL 160-189 mg/dL High LDL greater than 189 mg/dL Very high Performed By: #### A ST, LIPID, BMP #### [facility] [address] [place] [address] [place] Triglyceride w/Reflex 165 mg/dL High 0-149 [facility] Comment on above: Order Comment: PT FA STED 121 HOURS Result Comment: TRIG ATP III CLASSIFICATION TRIG less than 150 mg/dL Normal TRIG 150-199 mg/dL Borderline high TRIG 200-500 mg/dL High TRIG greater than 500 mg/dL Very high Standard traceable to the Center for Disease Conrtrol and Prevention (CDC) test method. Performed By: #### A ST, LIPID, BMP #### [facility] [address] [place] [address] [place] VLDL CHOLESTEROL 33 mg/dL Normal [facility] Comment on above: Order Comment: PT FA STED 121 HOURS Performed By: #### A ST, LIPID, BMP #### [facility] [address] [place] [id number] [facility] No Panel InformationOrdered By: Marquez Beal on 03-12-2023 Estimated GFR (CKD-EPI) 43.442 mL/Min [facility] Creatinine Clearance (Chem N/A [facility] Potassium [Moles/volume] in Serum or PlasmaOrdered By: Marquez Beal on 03-12-2023 Potassium [Moles/Vol] 5.4 mmol/L 3.5-5.1 [facility] Serum or plasma anion gap de terminationOrdered By: Marquez Beal on 03-12-2023 Anion gap [Moles/Vol] 8.4 mmol/L 6.0-15.0 [facility] Serum or plasma high density lipoprotein (HDL) cholesterol measurementOrdered By: Marquez Beal on 03-12-2023 Cholesterol in HDL [Mass/Vol] 45 mg/dL - [facility] Comment on above: HDL CHOL ATP-III CLA SSIFICATION Cardiovascular RiskHDL > or equal to 60 mg/dL LOWHDL < 40 mg/dL HIGH Serum or plasma total choles terol/high density lipoprotein (HDL) cholesterol mass ratOrdered By: Marquez Beal on 03-12-2023 Cholesterol.total/Chol esterol in HDL [Mass ratio] 3.8 {ratio} <5.0 [facility] Sodium [Moles/volume] in Ser um or PlasmaOrdered By: Marquez Beal on 03-12-2023 Sodium [Moles/Vol] 141 mmol/L 136-145 [facility] Triglyceride [Mass/volume] i n Serum or PlasmaOrdered By: Marquez Beal on 03-12-2023 Triglyceride [Mass/Vol] 165 mg/dL 0-149 [facility] Comment on above: TRIG ATP III CLASSIF ICATIONTRIG less than 150 mg/dL NormalTRIG 150-199 mg/dL Borderline highTRIG 200-500 mg/dL High TRIG greater than 500 mg/dL Very highStandard traceable to the Center for Disease Conrtrol and Prevention (CDC) test method. Urea nitrogen [Mass/volume] in Serum or PlasmaOrdered By: Marquez Beal on 03-12-2023 Urea nitrogen [Mass/Vol] 18 mg/dL 09-11 [facility] Basic Metabolic Panelon 01-19 Anion gap [Moles/Vol] 12.2 mmol/L Normal 6.0-15.0 [facility] Comment on above: Performed By: #### C BC, BMP ####[place] [id number] [address] Calcium [Mass/Vol] 9.4 mg/dL Normal 8.6-10.3 [facility] Comment on above: Performed By: #### C BC, BMP ####[place] [id number] [address] Chloride [Moles/Vol] 103 mmol/L Normal 98-107 [facility] Comment on above: Performed By: #### C BC, BMP ####[place] [address] [place] [id number] [facility] CO2 [Moles/Vol] 26.2 mmol/L Normal 21.0-31.0 [facility] Comment on above: Performed By: #### C BC, BMP ####[place] [address] [place] [id number] [facility] Creatinine [Mass/Vol] 1.35 mg/dL High 0.60-1.20 [facility] Comment on above: Performed By: #### C BC, BMP ####[place] [address] [place] [id number] [facility] Creatinine Clr Calc Pharmacy 40.59 Normal [facility] Comment on above: Result Comment: PERF ORMED BY: [facility] [address] [place] [id number] PATHOLOGIST [employer] JERAMY CALDWELL M.D. Performed By: #### C BC, BMP ####[place] [id number] GFR/1.73 sq M.predicted MDRD (S/P/Bld) [Vol rate/Area] 44.991 mL/min/{1.73_m2} Normal [facility] Comment on above: Performed By: #### C BC, BMP ####[facility] [id number] [place] [address] [facility] Glucose [Mass/Vol] 136 mg/dL High 70-100 [facility] Comment on above: Result Comment: [place] Glucose Reference Range is dependent on time and content of last meal. Glucose of more than 200 mg/dL in a nonstressed, ambulatory subject supports the diagnosis of Diabetes Mellitus. ADA recommended reference range Performed By: #### C BC, BMP ####[facility] [id number] [place] [address] [facility] Potassium [Moles/Vol] 5.4 mmol/L High 3.5-5.1 [facility] Comment on above: Performed By: #### C BC, BMP ####[facility] [place] [address] [facility] Sodium [Moles/Vol] 136 mmol/L Normal 136-145 [facility] Comment on above: Performed By: #### C BC, BMP ####[facility] [place] [address] [facility] Urea nitrogen [Mass/Vol] 33 mg/dL High 7-25 [facility] Comment on above: Performed By: #### C BC, BMP ####[facility] [id number] [place] [address] [facility] Basophils Auto (Bld) [#/Vol] Ordered By: Jacques East on 02-14-2023 Basophils (Bld) [#/Vol] 0.0 10*3/uL 0.0-0.2 [facility] Basophils/100 WBC Auto (Bld) Ordered By: Obpatriciadaenrique Chirinosr on 02-14-2023 Basophils/100 WBC (Bld) 0.1 % . [facility] Calcium [Mass/volume] in Ser um or PlasmaOrdered By: Jacques East on 02-14-2023 Calcium [Mass/Vol] 9.4 mg/dL 8.6-10.3 [facility] Carbon dioxide, total [Moles /volume] in Serum or PlasmaOrdered By: Jacques East on 02-14-2023 CO2 [Moles/Vol] 26.2 mmol/L 21.0-31.0 [facility] Chloride [Moles/volume] in S oralia or PlasmaOrdered By: Jacques East on 02-14-2023 Chloride [Moles/Vol] 103 mmol/L 98-107 [facility] Complete Blood Count Auto Di ffon 02-14-2023 Basophils (Bld) [#/Vol] 0.0 10*3/uL Normal 0.0-0.2 [facility] Comment on above: Result Comment: PERF ORMED BY: [facility] [address] [place] [address] PATHOLOGIST [employer] JERAMY CALDWELL M.D. Performed By: #### C , BMP ####[address] Basophils/100 WBC (Bld) 0.1 % Normal . [facility] Comment on above: Performed By: #### C BC, BMP ####[address] Eosinophils (Bld) [#/Vol] 0.0 10*3/uL Normal 0.0-0.45 [facility] Comment on above: Performed By: #### C , BMP ####[address] Eosinophils/100 WBC (Bld) 0.0 % Normal . [facility] Comment on above: Performed By: #### C BC, BMP ####[place] [id number] [facility] Erythrocyte distribution width (RBC) [Ratio] 14.6 % Normal 11.9-15.3 [facility] Comment on above: Performed By: #### C BC, BMP ####[address] Hematocrit (Bld) [Volume fraction] 44.5 % Normal 34.0-46.4 [facility] Comment on above: Performed By: #### C BC, BMP ####[place] [id number] [place] [address] [facility] Hemoglobin (Bld) [Mass/Vol] 15.1 g/dL Normal 11.8-15.4 [facility] Comment on above: Performed By: #### C BC, BMP ####[address] [address] [facility] Lymphocytes (Bld) [#/Vol] 1.0 10*3/uL Normal 1.00-4.8 [facility] Comment on above: Performed By: #### C BC, BMP ####[place] [address] [place] [id number] [facility] Lymphocytes/100 WBC (Bld) 7.6 % Normal . [facility] Comment on above: Performed By: #### C JUANITA, BMP ####[place] [id number] [facility] MCH (RBC) [Entitic mass] 30.6 pg Normal 24.7-34.3 [facility] Comment on above: Performed By: #### C JUANITA, BMP ####[place] [id number] [facility] MCV (RBC) [Entitic vol] 90.4 fL Normal 80-100 [facility] Comment on above: Performed By: #### C JUANITA, BMP ####[place] [id number] [facility] Mean Corpuscular HGB Conc 33.9 g/dL Normal 32.0-35.0 [facility] Comment on above: Performed By: #### C BC, BMP ####[place] [id number] [facility] Monocytes (Bld) [#/Vol] 0.6 10*3/uL Normal 0.0-0.8 [facility] Comment on above: Performed By: #### C BC, BMP ####[place] [id number] [facility] Monocytes/100 WBC (Bld) 4.7 % Normal . [facility] Comment on above: Performed By: #### C BC, BMP ####[facility] [id number] [place] [address] [place] Neutrophils (Bld) [#/Vol] 11.1 10*3/uL High 1.8-7.7 [facility] Comment on above: Performed By: #### C BC, BMP ####[facility] [place] [address] [facility] Neutrophils/100 WBC (Bld) 87.6 % Normal . [facility] Comment on above: Performed By: #### C JUANITA, BMP ####[place] [address] [place] [address] [facility] NRBC% 0.0 /100{WBC} Normal 0-0.5 [facility] Comment on above: Performed By: #### C JUANITA, BMP ####[place] [address] [place] [address] [facility] Platelet mean volume (Bld) [Entitic vol] 8.5 fL Normal 6.3-10.7 [facility] Comment on above: Performed By: #### C JUANITA, BMP ####[place] [address] [place] [address] [place] Platelets (Bld) [#/Vol] 220 10*3/uL Normal 150-450 [facility] Comment on above: Performed By: #### C JUANITA, BMP ####[place] [address] [place] [address] [facility] RBC (Bld) [#/Vol] 4.92 10*6/uL Normal 3.60-5.00 [facility] Comment on above: Performed By: #### C BC, BMP ####[place] [address] [place] [address] [facility] WBC (Bld) [#/Vol] 12.7 10*3/uL High 3.8-11.6 [facility] Comment on above: Performed By: #### C BC, BMP ####[place] [address] [place] [address] [facility] Creatinine [Mass/volume] in Serum or PlasmaOrdered By: Jacques Talbotomar on 02-14-2023 Creatinine [Mass/Vol] 1.35 mg/dL 0.60-1.20 [facility] Eosinophils Auto (Bld) [#/Vo l]Ordered By: Obreinaldo Talbotomar on 02-14-2023 Eosinophils (Bld) [#/Vol] 0.0 10*3/uL 0.0-0.45 [facility] Eosinophils/100 WBC Auto (Bl d)Ordered By: Obreinaldo Talbotomar on 02-14-2023 Eosinophils/100 WBC (Bld) 0.0 % . [facility] Erythrocyte distribution wid th Auto (RBC) [Ratio]Ordered By: Jacques East on 02-14-2023 Erythrocyte distribution width (RBC) [Ratio] 14.6 % 11.9-15.3 [facility] Glucose [Mass/volume] in Ser um or PlasmaOrdered By: Jacques East on 02-14-2023 Glucose [Mass/Vol] 136 mg/dL 70-100 [facility] Comment on above: ADA recommended refe rence rangeRandom Glucose Reference Range is dependent on time and content of last meal. Glucose of more than 200 mg/dL in a nonstressed, ambulatory subject supports the diagnosis of Diabetes Mellitus. Hematocrit Auto (Bld) [Volum e fraction]Ordered By: Jacques East on 02-14-2023 Hematocrit (Bld) [Volume fraction] 44.5 % 34.0-46.4 [facility] Hemoglobin [Mass/volume] in BloodOrdered By: Jacques East on 02-14-2023 Hemoglobin (Bld) [Mass/Vol] 15.1 g/dL 11.8-15.4 [facility] Leukocytes [#/volume] correc elliot for nucleated erythrocytes in Blood by Automated counOrdered By: Jacques East on 02-14-2023 WBC corrected for nucl RBC Auto (Bld) [#/Vol] 12.7 10*3/uL 3.8-11.6 [facility] Lymphocytes Auto (Bld) [#/Vo l]Ordered By: Jacques East on 02-14-2023 Lymphocytes (Bld) [#/Vol] 1.0 10*3/uL 1.00-4.8 [facility] Lymphocytes/100 WBC Auto (Bl d)Ordered By: Obpatriciadaenrique Talbotomar on 02-14-2023 Lymphocytes/100 WBC (Bld) 7.6 % . [facility] MCH Auto (RBC) [Entitic mass ]Ordered By: Obreinaldo Talbotomar on 02-14-2023 MCH (RBC) [Entitic mass] 30.6 pg 24.7-34.3 [facility] MCHC Auto (RBC) [Mass/Vol]Or dered By: Obpatriciadah Antioneomar on 02-14-2023 MCHC (RBC) [Mass/Vol] 33.9 g/dL 32.0-35.0 [facility] MCV Auto (RBC) [Entitic vol] Ordered By: Obreinaldo Talbotomar on 02-14-2023 MCV (RBC) [Entitic vol] 90.4 fL 80-100 [facility] Monocytes Auto (Bld) [#/Vol] Ordered By: Obreinaldo Talbotomar on 02-14-2023 Monocytes (Bld) [#/Vol] 0.6 10*3/uL 0.0-0.8 [facility] Monocytes/100 WBC Auto (Bld) Ordered By: Obpatriciadaenrique Talbotomar on 02-14-2023 Monocytes/100 WBC (Bld) 4.7 % . [facility] Neutrophils Auto (Bld) [#/Vo l]Ordered By: Obreinaldo Talbotomar on 02-14-2023 Neutrophils (Bld) [#/Vol] 11.1 10*3/uL 1.8-7.7 [facility] Neutrophils/100 WBC Auto (Bl d)Ordered By: Obpatriciadaenrique Talbotomar on 02-14-2023 Neutrophils/100 WBC (Bld) 87.6 % . [facility] No Panel InformationOrdered By: Jacques Chirinosr on 02-14-2023 Estimated GFR (CKD-EPI) 44.991 mL/Min [facility] Creatinine Clearance (Chem 40.59 [facility] Nucleated erythrocytes [Pres ence] in Blood by Automated countOrdered By: Jaraddaenrique Talbotomar on 02-14-2023 Nucleated RBC Auto Ql (Bld) 0.0 /100{WBC} 0-0.5 [facility] Platelet mean volume Auto (B ld) [Entitic vol]Ordered By: Obpatriciadah Daromar on 02-14-2023 Platelet mean volume (Bld) [Entitic vol] 8.5 fL 6.3-10.7 [facility] Platelets Auto (Bld) [#/Vol] Ordered By: Obpatriciadah Daromar on 02-14-2023 Platelets (Bld) [#/Vol] 220 10*3/uL 150-450 [facility] Potassium [Moles/volume] in Serum or PlasmaOrdered By: Obpatriciadah Daromar on 02-14-2023 Potassium [Moles/Vol] 5.4 mmol/L 3.5-5.1 [facility] RBC Auto (Bld) [#/Vol]Ordere d By: Obpatriciadah Daromar on 02-14-2023 RBC (Bld) [#/Vol] 4.92 10*6/uL 3.60-5.00 [facility] Serum or plasma anion gap de terminationOrdered By: Obpatriciadah Daromar on 02-14-2023 Anion gap [Moles/Vol] 12.2 mmol/L 6.0-15.0 [facility] Sodium [Moles/volume] in Ser um or PlasmaOrdered By: Obpatriciadah Daromar on 02-14-2023 Sodium [Moles/Vol] 136 mmol/L 136-145 [facility] Urea nitrogen [Mass/volume] in Serum or PlasmaOrdered By: Obaydah Daromar on 02-14-2023 Urea nitrogen [Mass/Vol] 33 mg/dL 7-25 [facility] WBC Auto (Bld) [#/Vol]Ordere d By: Obaydah Daromar on 02-14-2023 WBC (Bld) [#/Vol] 12.7 10*3/uL 3.8-11.6 [facility] Alanine aminotransferase [En zymatic activity/volume] in Serum or PlasmaOrdered By: Obpatriciadaenrique Daromar on 02-13-2023 ALT [Catalytic activity/Vol] 16 U/L 7-52 [facility] Albumin [Mass/volume] in Ser um or Plasma by Bromocresol green (BCG) dye binding methoOrdered By: Obpatriciadaenrique Talbotomar on 02-13-2023 Albumin BCG dye [Mass/Vol] 4.0 g/dL 3.5-5.7 [facility] Alkaline phosphatase [Enzyma tic activity/volume] in Serum or PlasmaOrdered By: Obaydaenrique Daromar on 02-13-2023 ALP [Catalytic activity/Vol] 57 U/L 34-104 [facility] Aspartate aminotransferase [ Enzymatic activity/volume] in Serum or PlasmaOrdered By: Obpatriciadaenrique Daromar on 02-13-2023 AST [Catalytic activity/Vol] 22 U/L 13-39 [facility] Bilirubin.total [Mass/volume ] in Serum or PlasmaOrdered By: Obpatriciadaenrique Talbotomar on 02-13-2023 Bilirubin [Mass/Vol] 0.6 mg/dL 0.3-1.0 [facility] Complete Blood Count Auto Di ffon 02-13-2023 Basophils (Bld) [#/Vol] 0.0 10*3/uL Normal 0.0-0.2 [facility] Comment on above: Result Comment: PERF ORMED BY: [facility] [address] [place] [address] PATHOLOGIST [employer] JERAMY CALDWELL M.D. Performed By: #### C BC, MG, CMP ####[facility] [place] [address] [place] Basophils/100 WBC (Bld) 0.2 % Normal . [facility] Comment on above: Performed By: #### C BC, MG, CMP ####[facility] [id number] [place] [id number] [facility] Eosinophils (Bld) [#/Vol] 0.0 10*3/uL Normal 0.0-0.45 [facility] Comment on above: Performed By: #### C BC, MG, CMP ####[place] [id number] [facility] Eosinophils/100 WBC (Bld) 0.0 % Normal . [facility] Comment on above: Performed By: #### C JUANITA MG, CMP ####[place] [id number] [facility] Erythrocyte distribution width (RBC) [Ratio] 14.4 % Normal 11.9-15.3 [facility] Comment on above: Performed By: #### C JUANITA MG, CMP ####[place] [id number] [facility] Hematocrit (Bld) [Volume fraction] 43.2 % Normal 34.0-46.4 [facility] Comment on above: Performed By: #### C JUANITA MG, CMP ####[address] Hemoglobin (Bld) [Mass/Vol] 14.6 g/dL Normal 11.8-15.4 [facility] Comment on above: Performed By: #### C JUANITA MG, CMP ####[address] Lymphocytes (Bld) [#/Vol] 2.7 10*3/uL Normal 1.00-4.8 [facility] Comment on above: Performed By: #### C JUANITA MG, CMP ####[place] [id number] [facility] Lymphocytes/100 WBC (Bld) 18.3 % Normal . [facility] Comment on above: Performed By: #### C BC MG, CMP ####[place] [id number] [facility] MCH (RBC) [Entitic mass] 30.5 pg Normal 24.7-34.3 [facility] Comment on above: Performed By: #### C BC MG, CMP ####[place] [id number] [facility] MCV (RBC) [Entitic vol] 90.1 fL Normal 80-100 [facility] Comment on above: Performed By: #### C BC MG, CMP ####[place] [id number] [place] [address] [facility] Mean Corpuscular HGB Conc 33.8 g/dL Normal 32.0-35.0 [facility] Comment on above: Performed By: #### C BC, MG, CMP ####[address] [address] [facility] Monocytes (Bld) [#/Vol] 1.2 10*3/uL High 0.0-0.8 [facility] Comment on above: Performed By: #### C BC, MG, CMP ####[place] [id number] [facility] Monocytes/100 WBC (Bld) 7.9 % Normal . [facility] Comment on above: Performed By: #### C BC, MG, CMP ####[place] [id number] [facility] Neutrophils (Bld) [#/Vol] 11.0 10*3/uL High 1.8-7.7 [facility] Comment on above: Performed By: #### C BC, MG, CMP ####[place] [id number] [facility] Neutrophils/100 WBC (Bld) 73.6 % Normal . [facility] Comment on above: Performed By: #### C BC, MG, CMP ####[address] [address] [facility] NRBC% 0.1 /100{WBC} Normal 0-0.5 [facility] Comment on above: Performed By: #### C BC, MG, CMP ####[address] [address] [facility] Platelet mean volume (Bld) [Entitic vol] 7.8 fL Normal 6.3-10.7 [facility] Comment on above: Performed By: #### C BC, MG, CMP ####[address] [address] [facility] Platelets (Bld) [#/Vol] 212 10*3/uL Normal 150-450 [facility] Comment on above: Performed By: #### C BC, MG, CMP ####[address] RBC (Bld) [#/Vol] 4.80 10*6/uL Normal 3.60-5.00 [facility] Comment on above: Performed By: #### C BC, MG, CMP ####[address] WBC (Bld) [#/Vol] 14.9 10*3/uL High 3.8-11.6 [facility] Comment on above: Performed By: #### C BC MG, CMP ####[address] Comprehensive Metabolic Pane franco 02-13-2023 Albumin [Mass/Vol] 4.0 g/dL Normal 3.5-5.7 [facility] Comment on above: Performed By: #### C BC MG, CMP ####[address] Albumin/Globulin [Mass ratio] 1.6 {ratio} Normal [facility] Comment on above: Performed By: #### C BC MG, CMP ####[address] ALP [Catalytic activity/Vol] 57 U/L Normal 34-104 [facility] Comment on above: Performed By: #### C BC, MG, CMP ####[address] ALT [Catalytic activity/Vol] 16 U/L Normal 7-52 [facility] Comment on above: Performed By: #### C BC MG, CMP ####[address] Anion gap [Moles/Vol] 9.4 mmol/L Normal 6.0-15.0 [facility] Comment on above: Performed By: #### C BC, MG, CMP ####[place] [address] [place] AST [Catalytic activity/Vol] 22 U/L Normal 13-39 [facility] Comment on above: Performed By: #### C BC MG, CMP ####[address] Bilirubin [Mass/Vol] 0.6 mg/dL Normal 0.3-1.0 [facility] Comment on above: Performed By: #### C BC MG, CMP ####[address] Calcium [Mass/Vol] 9.2 mg/dL Normal 8.6-10.3 [facility] Comment on above: Performed By: #### C BC MG, CMP ####[address] Chloride [Moles/Vol] 105 mmol/L Normal 98-107 [facility] Comment on above: Performed By: #### C BC MG, CMP ####[address] CO2 [Moles/Vol] 27.1 mmol/L Normal 21.0-31.0 [facility] Comment on above: Performed By: #### C BC MG, CMP ####[address] Creatinine [Mass/Vol] 1.45 mg/dL High 0.60-1.20 [facility] Comment on above: Performed By: #### C BC MG, CMP ####[address] Creatinine Clr Calc Pharmacy 37.90 [facility] Comment on above: Performed By: #### C BC MG, CMP ####[address] GFR/1.73 sq M.predicted MDRD (S/P/Bld) [Vol rate/Area] 41.294 mL/min/{1.73_m2} [facility] Comment on above: Performed By: #### C BC MG, CMP ####[facility] [place] [id number] [facility] Globulin (S) [Mass/Vol] 2.5 g/dL Normal [facility] Comment on above: Performed By: #### C BC MG, CMP ####[place] [id number] [facility] Glucose [Mass/Vol] 92 mg/dL Normal 70-100 [facility] Comment on above: Result Comment: [facility] Glucose Reference Range is dependent on time and content of last meal. Glucose of more than 200 mg/dL in a nonstressed, ambulatory subject supports the diagnosis of Diabetes Mellitus. ADA recommended reference range Performed By: #### C BC MG, CMP ####[address] Potassium [Moles/Vol] 4.5 mmol/L Normal 3.5-5.1 [facility] Comment on above: Performed By: #### C BC MG, CMP ####[place] [id number] [facility] Protein [Mass/Vol] 6.5 g/dL Normal 6.4-8.9 [facility] Comment on above: Performed By: #### C BC MG, CMP ####[place] [id number] [facility] Sodium [Moles/Vol] 137 mmol/L Normal 136-145 [facility] Comment on above: Performed By: #### C BC MG, CMP ####[place] [id number] [facility] Urea nitrogen [Mass/Vol] 28 mg/dL High 7-25 [facility] Comment on above: Performed By: #### C BC MG, CMP ####[place] [id number] [facility] Globulin Calc (S) [Mass/Vol] Ordered By: Jacques East on 02-13-2023 Globulin (S) [Mass/Vol] 2.5 g/dL [facility] Magnesiumon 02-13-2023 Magnesium [Mass/Vol] 1.8 mg/dL Low 1.9-2.7 [facility] Comment on above: Result Comment: PERF ORMED BY: [facility] [address] [place] [id number] PATHOLOGIST [employer] JERAMY CALDWELL M.D. Performed By: #### C BC, MG, CMP ####[facility] [id number] [place] [address] [facility] Magnesium [Mass/volume] in S oralia or PlasmaOrdered By: Obaydah Daromar on 02-13-2023 Magnesium [Mass/Vol] 1.8 mg/dL 1.9-2.7 [facility] Protein [Mass/volume] in Ser um or PlasmaOrdered By: Obaydah Daromar on 02-13-2023 Protein [Mass/Vol] 6.5 g/dL 6.4-8.9 [facility] Serum or plasma albumin/glob ulin mass ratioOrdered By: Obaydah Daromar on 02-13-2023 Albumin/Globulin [Mass ratio] 1.6 {ratio} [facility] Activated partial thrombopla stin time (aPTT) in platelet poor plasma by coagulation aOrdered By: Sally Valle on 02-12-2023 aPTT Coag (PPP) [Time] 25.6 s 25.1-36.5 [facility] Comment on above: A hematocrit value g reater than 55% may lead to inaccurate results in coagulation testing. Patients having hematocrit values >55% require a special collection tube for coagulation studies. Please contact the laboratory at [phone] for redraw instructions. Aerobic Cultureon 02-12-2023 Aerobic Culture Light Normal Respira tory Zoe 2 Days Gram Stain Result Rare Epithelial Cells 1+ White Blood Cells Rare Gram Positive Coccobacilli PERFORMED BY: [facility] [address] [place] [address] PATHOLOGIST [employer] JERAMY CALDWELL M.D. Normal [facility] Comment on above: Performed By: #### A ERC, GS #### [facility] [address] [place] [id number] [facility] Automated erythrocytes count in urine sediment (number/area)Ordered By: Jacques East on 02-12-2023 RBC Auto (Urine sed) [#/Area] 1-2 [HPF] 0-4 [facility] Automated leukocytes count i n urine sediment (number/area)Ordered By: [facility]-12-2023 WBC Auto (Urine sed) [#/Area] 3-4 [HPF] 0-4 [facility] Bilirubin Test strip Ql (U)O rdered By: Jacques East on 02-12-2023 Bilirubin Ql (U) Negative Negative [facility] Coagulation Profileon 2022 aPTT Coag (Bld) [Time] 25.6 s Normal 25.1-36.5 [facility] Comment on above: Result Comment: A he matocrit value greater than 55% may lead to inaccurate results in coagulation testing. Patients having hematocrit values >55% require a special collection tube for coagulation studies. Please contact the laboratory at [phone] for redraw instructions. PERFORMED BY: [facility] [address] [place] [id number] PATHOLOGIST [employer] JERAMY CALDWELL M.D. Performed By: #### C JUANITA, PP, CMP ####[place] [id number] [place] [id number] [facility] INR Coag (PPP) [Relative time] 0.9 {INR} Normal [facility] Comment on above: Result Comment: INR Therapeutic [...] Performed By: #### C JUANITA, PP, CMP ####[place] [id number] [place] [address] [facility] PT Coag (PPP) [Time] 10.9 s Normal 9.0-12.9 [facility] Comment on above: Result Comment: A he matocrit value greater than 55% may lead to inaccurate results in coagulation testing. Patients having hematocrit values >55% require a special collection tube for coagulation studies. Please contact the laboratory at [phone] for redraw instructions. Performed By: #### C BC, PP, CMP ####[facility] Color Auto (U)Ordered By: Glenroy East on 02-12-2023 Color (U) Yellow Yellow [facility] Complete Blood Count Auto Di ffon 02-12-2023 Basophils (Bld) [#/Vol] 0.0 10*3/uL Normal 0.0-0.2 [facility] Comment on above: Result Comment: PERF ORMED BY: [place] [address] PATHOLOGIST [employer] JERAMY CALDWELL M.D. Performed By: #### C BC, PP, CMP #### [address] Basophils/100 WBC (Bld) 0.2 % Normal . [facility] Comment on above: Performed By: #### C BC, PP, CMP #### [address] Eosinophils (Bld) [#/Vol] 0.0 10*3/uL Normal 0.0-0.45 [facility] Comment on above: Performed By: #### C BC, PP, CMP #### [address] Eosinophils/100 WBC (Bld) 0.0 % Normal . [facility] Comment on above: Performed By: #### C BC, PP, CMP #### [address] Erythrocyte distribution width (RBC) [Ratio] 14.6 % Normal 11.9-15.3 [facility] Comment on above: Performed By: #### C BC, PP, CMP #### [address] Hematocrit (Bld) [Volume fraction] 46.1 % Normal 34.0-46.4 [facility] Comment on above: Performed By: #### C JUANITA PP, CMP #### [address] Hemoglobin (Bld) [Mass/Vol] 15.6 g/dL High 11.8-15.4 [facility] Comment on above: Performed By: #### C JUANITA PP, CMP #### [address] Lymphocytes (Bld) [#/Vol] 0.6 10*3/uL Low 1.00-4.8 [facility] Comment on above: Performed By: #### C JUANITA PP, CMP #### [address] Lymphocytes/100 WBC (Bld) 4.0 % Normal . [facility] Comment on above: Performed By: #### C JUANITA PP, CMP #### [address] MCH (RBC) [Entitic mass] 30.6 pg Normal 24.7-34.3 [facility] Comment on above: Performed By: #### C JUANITA PP, CMP #### [address] MCV (RBC) [Entitic vol] 90.6 fL Normal 80-100 [facility] Comment on above: Performed By: #### C JUANITA PP, CMP #### [address] Mean Corpuscular HGB Conc 33.8 g/dL Normal 32.0-35.0 [facility] Comment on above: Performed By: #### C JUANITA PP, CMP #### [address] Monocytes (Bld) [#/Vol] 0.3 10*3/uL Normal 0.0-0.8 [facility] Comment on above: Performed By: #### C JUANITA PP, CMP #### [address] Monocytes/100 WBC (Bld) 1.8 % Normal . [facility] Comment on above: Performed By: #### C JUANITA, PP, CMP #### [facility] [address] Neutrophils (Bld) [#/Vol] 14.1 10*3/uL High 1.8-7.7 [facility] Comment on above: Performed By: #### C JUANITA, PP, CMP #### [facility] [address] Neutrophils/100 WBC (Bld) 94.0 % Normal . [facility] Comment on above: Performed By: #### C JUANITA PP, CMP #### [facility] [address] NRBC% 0.1 /100{WBC} Normal 0-0.5 [facility] Comment on above: Performed By: #### C JUANITA PP, CMP #### [facility] [address] Platelet mean volume (Bld) [Entitic vol] 7.9 fL Normal 6.3-10.7 [facility] Comment on above: Performed By: #### C JUANITA PP, CMP #### [address] Platelets (Bld) [#/Vol] 236 10*3/uL Normal 150-450 [facility] Comment on above: Performed By: #### C JUANITA, PP, CMP #### [facility] [address] RBC (Bld) [#/Vol] 5.09 10*6/uL High 3.60-5.00 [facility] Comment on above: Performed By: #### C JUANITA, PP, CMP #### [facility] [address] WBC (Bld) [#/Vol] 15.0 10*3/uL High 3.8-11.6 [facility] Comment on above: Performed By: #### C JUANITA, PP, CMP #### [facility] [address] Comprehensive Metabolic Pane franco 02-12-2023 Albumin [Mass/Vol] 4.6 g/dL Normal 3.5-5.7 [facility] Comment on above: Performed By: #### C BC, PP, CMP #### [facility] [address] [place] [id number] [facility] Albumin/Globulin [Mass ratio] 1.5 {ratio} Normal [facility] Comment on above: Performed By: #### C BC, PP, CMP #### [facility] [address] ALP [Catalytic activity/Vol] 70 U/L Normal 34-104 [facility] Comment on above: Performed By: #### C BC, PP, CMP #### [address] ALT [Catalytic activity/Vol] 19 U/L Normal 7-52 [facility] Comment on above: Performed By: #### C BC, PP, CMP #### [address] Anion gap [Moles/Vol] Not performed Normal 6.0-15.0 [facility] Comment on above: Performed By: #### C BC, PP, CMP #### [address] AST [Catalytic activity/Vol] 29 U/L Normal 13-39 [facility] Comment on above: Performed By: #### C BC, PP, CMP #### [facility] [address] [place] [address] Bilirubin [Mass/Vol] 0.5 mg/dL Normal 0.3-1.0 [facility] Comment on above: Performed By: #### C BC, PP, CMP #### [facility] [address] [place] [address] Calcium [Mass/Vol] 9.9 mg/dL Normal 8.6-10.3 [facility] Comment on above: Performed By: #### C BC, PP, CMP #### [address] [place] [address] [place] Chloride [Moles/Vol] 106 mmol/L Normal 98-107 [facility] Comment on above: Performed By: #### C BC, PP, CMP #### [facility] [address] CO2 [Moles/Vol] 20.4 mmol/L Low 21.0-31.0 [facility] Comment on above: Performed By: #### C JUANITA, PP, CMP #### [facility] [address] Creatinine [Mass/Vol] 1.65 mg/dL High 0.60-1.20 [facility] Comment on above: Performed By: #### C JUANITA, PP, CMP #### [address] Creatinine Clr Calc Pharmacy 34.03 [facility] Comment on above: Result Comment: PERF ORMED BY: [place] [address] PATHOLOGIST [employer] JERAMY CALDWELL M.D. Performed By: #### C JUANITA, PP, CMP #### [address] GFR/1.73 sq M.predicted MDRD (S/P/Bld) [Vol rate/Area] 35.363 mL/min/{1.73_m2} [facility] Comment on above: Performed By: #### C BC, PP, CMP #### [address] Globulin (S) [Mass/Vol] 3.1 g/dL [facility] Comment on above: Performed By: #### C BC, PP, CMP #### [address] Glucose [Mass/Vol] 157 mg/dL High 70-100 [facility] Comment on above: Result Comment: [facility] Glucose Reference Range is dependent on time and content of last meal. Glucose of more than 200 mg/dL in a nonstressed, ambulatory subject supports the diagnosis of Diabetes Mellitus. ADA recommended reference range Performed By: #### C BC, PP, CMP #### [facility] [address] Potassium Normal 3.5-5.1 [facility] Comment on above: Result Comment: Spec imen hemolyzed, redraw requested Performed By: #### C BC, PP, CMP #### [facility] [address] Protein [Mass/Vol] 7.7 g/dL Normal 6.4-8.9 [facility] Comment on above: Performed By: #### C BC, PP, CMP #### [address] Sodium [Moles/Vol] 140 mmol/L Normal 136-145 [facility] Comment on above: Performed By: #### C BC, PP, CMP #### [facility] [address] [place] [address] Urea nitrogen [Mass/Vol] 32 mg/dL High 7-25 [facility] Comment on above: Performed By: #### C BC, PP, CMP #### [place] [address] [place] Dipstick and Microscopicon 1 04-15-2022 Appearance (U) Clear Normal Clear [facility] Comment on above: Order Comment: Name Collection Type:: Clean-Voided Midstream Performed By: #### A DDONUAPLUS #### [place] [address] [place] Bacteria,Urine None Seen Normal None Seen [facility] Comment on above: Order Comment: Name Collection Type:: Clean-Voided Midstream Performed By: #### A DDONUAPLUS #### [place] [address] [place] Bilirubin,Urine Negative Normal Negative [facility] Comment on above: Order Comment: Name Collection Type:: Clean-Voided Midstream Performed By: #### A DDONUAPLUS #### [place] [address] [place] Color (U) Yellow Normal Yellow [facility] Comment on above: Order Comment: Name Collection Type:: Clean-Voided Midstream Performed By: #### A DDONUAPLUS #### [facility] [address] [place] [address] [place] Glucose Ql (U) Normal Normal Normal [facility] Comment on above: Order Comment: Name Collection Type:: Clean-Voided Midstream Performed By: #### A DDONUAPLUS #### [facility] [address] [place] [address] [place] Hyaline Casts,Urine 0-8 Normal 0-8 [facility] Comment on above: Order Comment: Name Collection Type:: Clean-Voided Midstream Result Comment: PERF ORMED BY: [place] [address] PATHOLOGIST [employer] JERAMY CALDWELL M.D. Performed By: #### A DDONUAPLUS #### [facility] [address] [place] [address] Ketones Ql (U) Negative Normal Negative [facility] Comment on above: Order Comment: Name Collection Type:: Clean-Voided Midstream Performed By: #### A DDONUAPLUS #### [facility] [address] [place] [address] Leukocyte esterase Test strip Ql (U) 1+ High Negative [facility] Comment on above: Order Comment: Name Collection Type:: Clean-Voided Midstream Performed By: #### A DDONUAPLUS #### [facility] [address] [place] [address] [place] Nitrite,Urine Negative Normal Negative [facility] Comment on above: Order Comment: Name Collection Type:: Clean-Voided Midstream Performed By: #### A DDONUAPLUS #### [facility] [address] [place] [address] [place] Occult Blood,Urine Negative Normal Negative [facility] Comment on above: Order Comment: Name Collection Type:: Clean-Voided Midstream Result Comment: PERF ORMED BY: [place] [address] PATHOLOGIST [employer] JERAMY CALDWELL M.D. Performed By: #### A DDONUAPLUS #### [address] pH (U) 5.0 [pH] Normal 5.0-9.0 [facility] Comment on above: Order Comment: Name Collection Type:: Clean-Voided Midstream Performed By: #### A DDONUAPLUS #### [address] Protein,Urine Negative Normal Negative [facility] Comment on above: Order Comment: Name Collection Type:: Clean-Voided Midstream Performed By: #### A DDONUAPLUS #### [address] RBC,Urine 1-2 Normal 0-4 [facility] Comment on above: Order Comment: Name Collection Type:: Clean-Voided Midstream Performed By: #### A DDONUAPLUS #### [address] Specificy Sublimity,Urine 1.017 Normal 1.001-1.03 0 [facility] Comment on above: Order Comment: Name Collection Type:: Clean-Voided Midstream Performed By: #### A DDONUAPLUS #### [address] Squamous Epithelial Cell,Urine 0-1 Normal 0-2 [facility] Comment on above: Order Comment: Name Collection Type:: Clean-Voided Midstream Performed By: #### A DDONUAPLUS #### [address] Urobilinogen,Urine Normal Normal Normal [facility] Comment on above: Order Comment: Name Collection Type:: Clean-Voided Midstream Performed By: #### A DDONUAPLUS #### [address] WBC,Urine 3-4 Normal 0-4 [facility] Comment on above: Order Comment: Name Collection Type:: Clean-Voided Midstream Performed By: #### A DDONUAPLUS #### [address] [place] [address] [place] ECG 12 lead ECGon 02-12-2023 ECG 12 lead ECG [facility] [address] [place] [address] [place] [address] Electrocardiograph Report Signed Patient: Deysi Hernandez MR#: [id number] : 1960 Acct:[id number] Age/Sex: 62 / F ADM Date: 02/12/23 Loc: Room: [address] [place] [address] Type: ADM IN Attending Dr: Jacques East [...] Signed By Bj Bay DO 02/13 1109 [facility] Gram Stainon 02-12-2023 Microscopic observation Gram stain Nom (Unsp spec) Gram Stain Result Rare Epithelial Cells 1+ White Blood Cells Rare Gram Positive Coccobacilli PERFORMED BY: [place] [address] PATHOLOGIST [employer] JERAMY CALDWELL M.D. [facility] Comment on above: Performed By: #### A HANNAH, AUGUSTUS #### [facility] [address] [place], [place] [id number] [facility] Gram stain for investigation of transfusion reactionOrdered By: Jacques East on 02-12-2023 Microscopic observation Gram stain Nom (Unsp spec) [facility] Microscopic observation Gram stain Nom (Unsp spec) 2 Days [facility] INR in Platelet poor plasma by Coagulation assayOrdered By: Sally Valle on 02-12-2023 INR Coag (PPP) [Relative time] 0.9 {INR} [facility] Comment on above: INR Therapeutic Rang e [...] on 02-12-2023 Ketones (U) [Mass/Vol] Negative Negative [facility] - UrinalysisOrder ed By: Jacques East on 02-12-2023 Hyaline casts LM Ql (Urine sed) 0-8 [LPF] 0-8 [facility] Magnesiumon 02-12-2023 Magnesium [Mass/Vol] 1.8 mg/dL Low 1.9-2.7 [facility] Comment on above: Result Comment: PERF ORMED BY: [facility] [address] [place] [address] PATHOLOGIST [employer]YWALL PROFESSIONAL JERAMY CALDWELL M.D. Performed By: #### M G ####[facility] [place] [id number] [facility] Nitrite Test strip Ql (U)Ord ered By: Jacques East on 02-12-2023 Nitrite Ql (U) Negative Negative [facility] Protein Auto test strip (U) [Mass/Vol]Ordered By: Jacques East on 02-12-2023 Protein (U) [Mass/Vol] Negative Negative [facility] Prothrombin time (PT)Ordered By: Sally Valle on 02-12-2023 PT Coag (PPP) [Time] 10.9 s 9.0-12.9 [facility] Comment on above: A hematocrit value g reater than 55% may lead to inaccurate results in coagulation testing. Patients having hematocrit values >55% require a special collection tube for coagulation studies. Please contact the laboratory at [phone] for redraw instructions. Redraw Potassiumon 3 Potassium [Moles/Vol] 4.4 mmol/L Normal 3.5-5.1 [facility] Comment on above: Order Comment: 1ST S pecimen hemolyzed, redraw requested Result Comment: PERF ORMED BY: [facility] [address] [address] PATHOLOGIST [employer] PROFESSIONAL JERAMY CALDWELL M.D. Performed By: #### R EDRAW K ####[place] [id number] [facility] Specific gravity Auto test s trip (U) [Rel density]Ordered By: Jacques East on 02-12-2023 Specific gravity (U) [Rel density] 1.017 1.001-1.03 0 [facility] Squamous epithelial cells de tection in urine sediment by light microscopyOrdered By: Jacques East on 02-12-2023 Epithelial cells.squamous LM Ql (Urine sed) 0-1 [HPF] 0-2 [facility] Troponin I High Sensitivityo n 02-12-2023 Troponin I High Sensitivity 43.8 pg/mL High 0.0-15.0 [facility] Comment on above: Result Comment: PERF ORMED BY: [facility] [address] [place] [id number] PATHOLOGIST [employer] PROFESSIONAL JERAMY CALDWELL M.D. Performed By: #### H S TROP ####[place] [id number] [facility] Troponin I High Sensitivity 70.6 pg/mL Off scale high 0.0-15.0 [facility] Comment on above: Result Comment: Crit ical Result : Called to and read back by: BRANDON LEVINE at: 02/12/2023 08:07:31 by:LUCIANO PERFORMED BY: [place] [address] PATHOLOGIST [employer] PROFESSIONAL JERAMY CALDWELL M.D. Performed By: #### H S TROP ####[facility] [id number] Troponin I.cardiac [Mass/vol ume] in Serum or Plasma by Detection limit <= 0.01 ng/Ordered By: Sally Valle on 02-12-2023 Troponin I.cardiac DL <= 0.01 ng/mL [Mass/Vol] 43.8 pg/mL 0.0-15.0 [facility] Urine bacteria detection by automated methodOrdered By: Jacques East on 02-12-2023 Bacteria Auto Ql (U) None seen None Seen [facility] Urine clarity by refractomet ry automatedOrdered By: Jacques East on 02-12-2023 Clarity Refractometry automated (U) Clear Clear [facility] Urine glucose measurement by automated test strip (mass/volume)Ordered By: Jacques East on 02-12-2023 Glucose Auto test strip (U) [Mass/Vol] Normal mg/dL Normal [facility] Urine hemoglobin detection b y automated test stripOrdered By: Jacques East on 02-12-2023 Hemoglobin Auto test strip Ql (U) Negative Negative [facility] Urine leukocyte esterase det ection by automated test stripOrdered By: Jacques Chirinosr on 02-12-2023 Leukocyte esterase Auto test strip Ql (U) 1+ Negative [facility] Urobilinogen Auto test strip (U) [Mass/Vol]Ordered By: Jacques Chirinosr on 02-12-2023 Urobilinogen (U) [Mass/Vol] Normal mg/dL Normal [facility] XR chest 1V portableon 02-12 XR chest 1V portable [facility] [place] [address] XRay Report Signed Patient: Deysi Hernandez MR#: [id number] : 1960 Acct:[id number] Age/Sex: 62 / F ADM Date: 02/12/23 Loc: 3T Room: [address] [place] [address] Type: ADM IN Attending Dr: Jacques East [...] Bj Ma M.D.02/12/2023 12:40 PM Dictation Location: [place] [address] Transcribed By: [facility] 02/12/23 1240 Dictated By: Bj Ma DO 02/12/23 1237 Signed By: 02/12/23 1240 Normal [facility] pH Auto test strip (U)Ordere d By: Jacques East on 02-12-2023 pH (U) 5.0 [pH] 5.0-9.0 [facility] CHEMISTRYOrdered By: SYSTEM SYSTEM on 02-10-2023 Anion [...] 39 pg/mL Normal 5 - 80 pg/mL [facility] COAGULATIONOrdered By: Veronica Guidry on 02-10-2023 aPTT Coag (PPP) [Time] 29.2 s Normal 25.1 - 36.5 second(s) [facility] Comment on above: Interpretive Data: [...] the same coagulation reagent and instrumentation as [facility]. Currently there are no coagulation studies available worldwide for children to 14 days, and no normal ranges. Heparin therapeutic range (represented by Anti-Factor Xa activity of 0.2 - 0.4 U/mL) corresponds to PTT of 56.6 - 109.0 sec. INR Coag (PPP) [Relative time] 1.0 {INR} Invalid Interpretation Code [facility] Comment on above: Interpretive Data: I NR results are specifically intended to assess patients stabilized on long-term Anticoagulation therapy suggested INR s Less Intensive Anticoagulation 2.0 3.0 Conventional Range 3.0 4.5 PT Coag (PPP) [Time] 11.6 s Normal 9.4 - 1 2.5 second(s) [facility] Comment on above: Interpretive Data: [...] the same coagulation reagent and instrumentation as [facility]. Currently there are no coagulation studies available worldwide for children to 14 days, and no normal ranges. HEMATOLOGYOrdered By: SYSTEM SYSTEM on 02-10-2023 Basophils/100 [...] 6.7 E9/L Normal 2.0 - 7.5 E9/L FT [facility] HEMATOLOGYOrdered By: Estela Reyna on 02-10-2023 [...] Normal 4.0 - 11.0 E9/L [facility] HemeAutoSS MICRO OTHER TESTSOrdered By: Trudy Guidry on 02-10-2023 Influenzae A Ag Negative (02/10/23 3:25 PM) Normal Negative [facility] Man Sero Influenzae B Ag Negative 1 (02/10/23 3:25 PM) Normal Negative [facility] Comment on above: Interpretive Data: [...] NEG Ctl Pass (02/10/23 3:25 PM) Normal [facility] Man Sero Rapid COV Int POS Ctl Pass (02/10/23 3:25 PM) Normal [facility] Sero SARS-CoV+SARS-CoV-2 (COVID-19) Ag IA.rapid Ql (Resp) Not Detected 6 (02/10/23 3:25 PM) Normal Not Detected [facility]ero Comment on above: Interpretive Data: Suma young Preclick Veritor System for Rapid Detection of SARS-CoV-2 [...] the authorization is terminated or revoked sooner. Lizbet 10-26-2022 CNPN Telephone (KIDMMM) ----- DEYSI HERNANDEZ ([id number]) 1960 F Date Time Provider Department 10/26/22 [...] question. I will also send her a Elegant Service message encouraging communicate via Elegant Service if needed. Debra Fishman MD Staff, Department of Kidney Medicine 10/26/22 5:49 PM Allergies As of Date: 10/26/2022 Noted Allergy Reaction CODEINE 09/07/2014 7 - Swelling Date Reviewed: 10/09/2022 Reviewed by: Rosie Harris DO - Fully Assessed Reason for Visit: Patient Question [6777] Prescriptions as of 10/26/2022 - lisinopril (ZESTRIL) [...] Encounter Status:Closed by DEBRA FISHMAN on 10/26/22 [facility] CNPJoan 10-25-2022 CNPN Telephone (AARON) ----- DEYSI HERNANDEZ ([id number]) 1960 F Date Time Provider Department 10/25/22 DEBRA FISHMAN During your visit today, we recorded the following information about you: Linn Solis Ma 10/25/2022 12:36 PM Signed Patient called the office very upset because today at here appointment with Kidney Medicine she was seen by another provider and it wasn't her kidney doctor. She would like Dr. Fishman call her back at [phone] because she has lots of questions that [...] Fully Assessed Reason for Visit: Patient Question [5950] Prescriptions as of 10/25/2022 - lisinopril (ZESTRIL) [...] Status:Closed by LINN SOLIS MA on 10/25/22 [facility] 10-11-2022 CNPN Telephone (WIQ) ----- DEYSI HERNANDEZ ([id number]) 1960 F Date Time Provider Department 10/11/22 CATHIE MOORE During your visit today, we recorded the following information about you: Cathie Moore, [facility] 10/11/2022 12:57 PM Signed Smoking Cessation Navigation Outcome of contact: Left Message Comments: A voicemail has been left for this patient regarding Tobacco Cessation support options. If this patient has any further questions they can email us at or call us at [phone]. [employer] Hand Wrapper Operator/Smoking Cessation Navigator: [facility] All[facility] As of Date: 10/11/2022 Noted [...] by CATHIE MOORE on 10/11/22 Normal [facility] Sami 10-09-2022 ÓSCAR Office Visit (ELPIDIO ) ----- DEYSI HERNANDEZ ([id number]) 1960 F Date Time Provider Department 10/09/22 2:00 PM GURMEET OJEDA During your visit today, we recorded the following information about you: Temperature Pulse Blood pressure Weight 97.5 degrees 60/minute 91/60 71.3 kg Height 1.575 m Rosie Harris DO 10/09/2022 5:[address] 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 She is a longterm smoker, currently 0.75 pack per day but [...] metoprol (more content not included)... Normal [facility] URINALYSIS, REFLEX MICROSCOP ICon 10-09-2022 Bacteria LM.HPF (Urine sed) [#/Area] Few Abnormal None Seen [facility] Comment on above: Order Comment: Speci men Type: URINE SPECIMEN Ordering Facility: [facility] Address: [address] [place] [address] Performed By: #### L [id number] #### [facility] CLIA [id number] [address] [place] [address] [place] Bilirubin Ql (U) Negative Normal Negative [facility] Comment on above: Order Comment: Speci men Type: URINE SPECIMEN Ordering Facility: [facility] Address: [address] [place] [address] Performed By: #### L [id number] #### [facility] CLIA [id number] [address] [place] [address] [place] Clarity (Unsp spec) Cloudy Abnormal Clear [facility] Comment on above: Order Comment: Speci men Type: URINE SPECIMEN Ordering Facility: [facility] Address: [address] [place] [address] Performed By: #### L [id number] #### [facility] CLIA [id number] [address] [place] [address] [place] Color (U) Light Yellow Normal Yellow [facility] Comment on above: Order Comment: Speci men Type: URINE SPECIMEN Ordering Facility: [facility] Address: [address] [place] [address] Performed By: #### L [id number] #### [facility] CLIA [id number] [address] [place] [address] [place] Epithelial cells LM.HPF (Urine sed) [#/Area] Few Normal [facility] Comment on above: Order Comment: Speci men Type: URINE SPECIMEN Ordering Facility: [facility] Address: [address] [place] [address] Performed By: #### L [id number] #### [facility] CLIA [id number] [address] [place] [address] [place] Glucose Test strip (U) [Mass/Vol] Negative Normal Trace, Negative [facility] Comment on above: Order Comment: Speci men Type: URINE SPECIMEN Ordering Facility: [facility] Address: [address] Performed By: #### L [id number] #### [facility] CLIA [id number] [address] [place] [address] [place] Hemoglobin Ql (U) Trace Normal Negative, Trace [facility] Comment on above: Order Comment: Speci men Type: URINE SPECIMEN Ordering Facility: [facility] Address: [address] Performed By: #### L [id number] #### [facility] CLIA [id number] [address] [place] [address] [place] Ketones Ql (U) Negative Normal Negative, Trace [facility] Comment on above: Order Comment: Speci men Type: URINE SPECIMEN Ordering Facility: [facility] Address: [address] [place], [place] [address] Performed By: #### L [id number] #### [facility] CLIA [id number] [address] [place] [address] [place] Leukocyte esterase Test strip Ql (U) 250 Bonnie/uL Abnormal Negative, 25 Bonnie/uL [facility] Comment on above: Order Comment: Speci men Type: URINE SPECIMEN Ordering Facility: [facility] Address: [address] [place], [place] [address] Performed By: #### L [id number] #### [facility] CLIA [id number] [address] [place] [address] [place] Nitrite Ql (U) 2+ Abnormal Negative [facility] Comment on above: Order Comment: Speci men Type: URINE SPECIMEN Ordering Facility: [facility] Address: [address] Performed By: #### L [id number] #### [facility] CLIA [id number] [address] [place] [address] [facility] pH (U) 5.5 [pH] Normal 5.0-8.0 [facility] Comment on above: Order Comment: Speci men Type: URINE SPECIMEN Ordering Facility: [facility] Address: [address] [place] [address] Performed By: #### L [id number] #### [facility] CLIA [id number] [address] [place] [address] [place] Protein (U) [Mass/Vol] Negative Normal Trace , Negative [facility] Comment on above: Order Comment: Speci men Type: URINE SPECIMEN Ordering Facility: [facility] Address: [address] [place], [place] [address] Performed By: #### L [id number] #### [facility] CLIA [id number] [address] [place] [address] [place] RBC LM.HPF (Urine sed) [#/Area] 0-3 /HPF Normal 0-3 /HPF [facility] Comment on above: Order Comment: Speci men Type: URINE SPECIMEN Ordering Facility: [facility] Address: [address] [place], [place] [address] Performed By: #### L [id number] #### [facility] CLIA [id number] [address] [place] [address] [place] Specific gravity (U) [Rel density] 1.015 Normal 1.005-1.03 0 [facility] Comment on above: Order Comment: Speci men Type: URINE SPECIMEN Ordering Facility: [facility] Address: [address] [place], [place] [address] Performed By: #### L [id number] #### [facility] CLIA [id number] [address] [place] [address] [place] Urobilinogen Ql (U) Negative Normal Negative [facility] Comment on above: Order Comment: Speci men Type: URINE SPECIMEN Ordering Facility: [facility] Address: [address] [place] [address] Performed By: #### L [id number] #### [facility] CLIA [id number] [address] [place] [address] [place] WBC LM.HPF (Urine sed) [#/Area] /[HPF] Abnormal 0-5 /HPF [facility] Comment on above: Order Comment: Speci men Type: URINE SPECIMEN Ordering Facility: [facility] Address: [address] [place] [address] Performed By: #### L [id number] #### [facility] CLIA [id number] [address] [place] [address] [place] Bacteria LM.HPF (Urine sed) [#/Area] Few Abnormal None Seen /HPF [facility] Bilirubin Ql (U) Negative Negative [facility] Clarity (Unsp spec) Cloudy Abnormal Clear [facility] Color (U) Light Yellow Yellow [facility] Epithelial cells LM.HPF (Urine sed) [#/Area] Few [facility] Glucose Test strip (U) [Mass/Vol] Negative Trace, Negative [facility] Hemoglobin Ql (U) Trace Negative, Trace [facility] Ketones Ql (U) Negative Negative, Trace [facility] Leukocyte esterase Test strip Ql (U) 250 Bonnie/uL Abnormal Negative, 25 Bonnie/uL [facility] Nitrite Ql (U) 2+ Abnormal Negative [facility] pH (U) 5.5 [pH] 5.0 - 8.0 [facility] Protein (U) [Mass/Vol] Negative Trace , Negative [facility] RBC LM.HPF (Urine sed) [#/Area] 0-3 /HPF 0-3 /HPF [facility] Specific gravity (U) [Rel density] 1.015 1.005 - 1.030 [facility] Urobilinogen Ql (U) Negative Negative [facility] WBC LM.HPF (Urine sed) [#/Area] /[HPF] Abnormal 0-5 /HPF [facility] 25(OH)D3 SerPl-mCncon 2022 25-hydroxyvitamin D3 [Mass/Vol] 34.5 ng/mL Normal 31.0-80.0 [facility] Comment on above: Order Comment: Speci men Type: BLOOD SPECIMEN Ordering Facility: [facility] Address: [address] [place] [address] Result Comment: Clas sification of 25 [place] Vitamin D status: Deficiency/Insufficiency: < or = 30 ng/ml. Sufficiency/Optimal Levels: 31-80 ng/mL Toxicity: > 100 ng/mL. Test performed by chemiluminescent immunoassay. Performed By: #### 1 989-3 #### [facility] CLIA [id number] [address] [place] [address] IMMUNOFIXATION SCREEN, SERUM on 08-23-2022 MPA RESULT No M protein is identified. Normal No M protein is identified . [facility] Comment on above: Order Comment: Speci men Type: BLOOD SPECIMEN Ordering Facility: [facility] Address: [address] [place] [address] Performed By: #### I FESC #### [facility] CLIA [id number] [address] [place] [address] STAFF REVIEW (MPA) Reviewed by Cortes Alfredo MD, Ph.D ([id number]) Normal [facility] Comment on above: Order Comment: Speci men Type: BLOOD SPECIMEN Ordering Facility: [facility] Address: [address] Performed By: #### I FESC #### [facility] CLIA [id number] [address] [place] [address] [place] IMMUNOGLOBULINS GAMon 2022 IgA [Mass/Vol] 218 mg/dL Normal 70-400 [facility] Comment on above: Order Comment: Speci men Type: BLOOD SPECIMEN Ordering Facility: [facility] Address: [address] [place] [address] Performed By: #### S ERIMM #### [facility] CLIA [id number] [facility] [place] [address] [place] IgG [Mass/Vol] 775 mg/dL Normal 700-1600 [facility] Comment on above: Order Comment: Speci men Type: BLOOD SPECIMEN Ordering Facility: [facility] Address: [address] [place] [address] Performed By: #### S ERIMM #### [facility] CLIA [id number] [address] [place] [address] [place] IgM [Mass/Vol] 129 mg/dL Normal 40-230 [facility] Comment on above: Order Comment: Speci men Type: BLOOD SPECIMEN Ordering Facility: [facility] Address: [address] [place] [address] Performed By: #### S ERIMM #### [facility] CLIA [id number] [address] [place] [address] [place] KAPPA/THAO,FREE,SERon 2022 Immunoglobulin light chains.kappa.free (S) [Mass/Vol] 26.1 mg/L High 3.3-19.4 [facility] Comment on above: Order Comment: Speci men Type: BLOOD SPECIMEN Ordering Facility: [facility] Address: [address] [place] [address] Result Comment: Rare ly, increased serum free light chains levels may not be detected or accurately quantified due to prozone phenomenon or in high viscosity samples using this immunoturbidimetric assay. Correlation with other laboratory results and clinical findings is recommended. The [place] Free Light Chain was performed using the Binding Site Optilite immunoturbidimetric method. Result obtained with different assay methods or kits cannot be used interchangeably. Performed By: #### K LFRS #### [facility] CLIA [id number] [address] [place] [address] [place] Immunoglobulin light chains.kappa/Immunoglo bulin light chains.lambda (S) [Mass ratio] 1.01 Normal 0.26-1.65 [facility] Comment on above: Order Comment: Speci men Type: BLOOD SPECIMEN Ordering Facility: [facility] Address: [address] [place] [address] Performed By: #### K LFRS #### [facility] CLIA [id number] [address] [place] [address] [place] Immunoglobulin light chains.lambda.free [Mass/Vol] 25.9 mg/L Normal 5.7-26.3 [facility] Comment on above: Order Comment: Speci men Type: BLOOD SPECIMEN Ordering Facility: [facility] Address: [address] [place] [address] Result Comment: Rare ly, increased serum free [...] interchangeably. Performed By: #### K LFRS #### [facility] CLIA [id number] [address] [place] [address] [place] Renal function 2000 panelon 08-23-2022 Albumin [Mass/Vol] 4.3 g/dL Normal 3.9-4.9 [facility] Comment on above: Order Comment: Speci men Type: BLOOD SPECIMEN Ordering Facility: [facility] Address: [address] Performed By: #### 2 4362-6 #### [facility] CLIA [id number] [address] [place] [address] [place] Anion gap [Moles/Vol] 9 mmol/L Normal 9-18 [facility] Comment on above: Order Comment: Speci men Type: BLOOD SPECIMEN Ordering Facility: [facility] Address: [address] Performed By: #### 2 4362-6 #### [facility] CLIA [id number] [address] [place] [address] [place] Calcium [Mass/Vol] 9.9 mg/dL Normal 8.5-10.2 [facility] Comment on above: Order Comment: Speci men Type: BLOOD SPECIMEN Ordering Facility: [facility] Address: [address] [place] [address] Performed By: #### 2 4362-6 #### [facility] [place] [id number] [place] [address] [place] Chloride [Moles/Vol] 105 mmol/L Normal 97-105 [facility] Comment on above: Order Comment: Speci men Type: BLOOD SPECIMEN Ordering Facility: [facility] Address: [address] [place] [address] Performed By: #### 2 4362-6 #### [facility] [place] [id number] [address] [place] [address] [place] CO2 [Moles/Vol] 25 mmol/L Normal 22-30 [facility] ital Comment on above: Order Comment: Speci men Type: BLOOD SPECIMEN Ordering Facility: [facility] Address: [address] [place] [address] Performed By: #### 2 4362-6 #### [facility] [place] [id number] [address] [place] [address] [place] Creatinine [Mass/Vol] 1.42 mg/dL High 0.58-0.96 [facility] Comment on above: Order Comment: Speci men Type: BLOOD SPECIMEN Ordering Facility: [facility] Address: [address] Performed By: #### 2 4362-6 #### [facility] [place] [id number] [address] [place] [address] [place] ESTIMATED GLOMERULAR FILTRATION RATE 42 mL/min/1.73m??? Low >=60 [facility] Comment on above: Order Comment: Speci men Type: BLOOD SPECIMEN Ordering Facility: [facility] Address: [address] Result Comment: Jody mated Glomerular Filtration [...] GFR. Performed By: #### 2 4362-6 #### [facility] CLIA [id number] [address] [place] [address] [place] Glucose [Mass/Vol] 70 mg/dL Low 74-99 [facility] Comment on above: Order Comment: Carmen juarez Type: BLOOD SPECIMEN Ordering Facility: [facility] Address: [address] [id number] Result Comment: The [place] [employer] (ADA) provides guidance for cutoff [...] Standards of Medical Care in Diabetes 2016, [place] [employer]. Diabetes Care. 2016.39(Suppl 1). Performed By: #### 2 4362-6 #### [facility] CLIA [id number] [address] [place] [address] [place] Phosphate [Mass/Vol] 2.5 mg/dL Low 2.7-4.8 [facility] Comment on above: Order Comment: Carmen juarez Type: BLOOD SPECIMEN Ordering Facility: [facility] Address: [address] [place] [address] Performed By: #### 2 4362-6 #### [facility] CLIA [id number] [address] [place] [address] [place] Potassium [Moles/Vol] 4.8 mmol/L Normal 3.7-5.1 [facility] Comment on above: Order Comment: Speci men Type: BLOOD SPECIMEN Ordering Facility: [facility] Address: [address] Performed By: #### 2 4362-6 #### [facility] CLIA [id number] [address] [place] [address] [place] [facility] Sodium [Moles/Vol] 139 mmol/L Normal 136-144 [facility] Comment on above: Order Comment: Speci men Type: BLOOD SPECIMEN Ordering Facility: [facility] Address: [address] [address] Performed By: #### 2 4362-6 #### [facility] CLIA [id number] [address] [place], [place] [address] [place] [address] [place] Urea nitrogen [Mass/Vol] 18 mg/dL Normal 7-21 [facility] Comment on above: Order Comment: Speci men Type: BLOOD SPECIMEN Ordering Facility: [facility] Address: [address] Performed By: #### 2 4362-6 #### [facility] CLIA [id number] [address] [place] [address] [place] US KIDNEY/BLADDERon 08-24-19 23 US KIDNEY/BLADDER * * *Final Report* * * DATE OF EXAM: Aug 23 2022 2:15PM [facility] 1055 - KIDNEY/BLADDER / PROCEDURE REASON: Stage [...] residual bladder volume 4. 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[facility] Transcribe Date/Time: Aug 28 2022 8:25A Dictated by : ALEAH QUINN MD This examination was interpreted and the report reviewed and electronically signed by: ALEAH QUINN MD on Aug 28 2022 8:28AM EST [id number] [facility] Office Visit (KIDMMN ) ----- DEYSI HERNANDEZ ([id number]) 1960 F Date Time Provider Department 08/09/22 3:00 PM GURMEET OJEDA During your visit today, we recorded the following information about you: Temperature Pulse Blood pressure Weight 97.7 degrees 65/minute 98/64 72.5 kg Height 1.575 m Debra Fishman MD 08/09/2022 7:[address] 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 Normal [facility] URINALYSIS, REFLEX MICROSCOP ICon 08-09-2022 Bilirubin Ql (U) Negative Normal Negative Jing bazzi [facility] Comment on above: Order Comment: Speci men Type: URINE SPECIMEN Ordering Facility: [facility] Address: [address] [place], [place] [phone] Performed By: #### L [id number] #### [facility] CLIA [id number] [address] [place] [address] [place] Clarity (Unsp spec) Clear Normal Clear [facility] Comment on above: Order Comment: Speci men Type: URINE SPECIMEN Ordering Facility: [facility] Address: [address] [place] [address] Performed By: #### L [id number] #### [facility] CLIA [id number] [address] [place] [address] [place] Color (U) Light Yellow Normal Yellow [facility] Comment on above: Order Comment: Speci men Type: URINE SPECIMEN Ordering Facility: [facility] Address: [address] [place] [address] Performed By: #### L [id number] #### [facility] CLIA [id number] [address] [place] [address] [place] Glucose Test strip (U) [Mass/Vol] Negative Normal Trace, Negative [facility] Comment on above: Order Comment: Speci men Type: URINE SPECIMEN Ordering Facility: [facility] Address: [address] [place] [address] Performed By: #### L [id number] #### [facility] CLIA [id number] [address] [place] [address] [place] Hemoglobin Ql (U) Negative Normal Negative, Trace [facility] Comment on above: Order Comment: Speci men Type: URINE SPECIMEN Ordering Facility: [facility] Address: [address] [phone] Performed By: #### L [id number] #### [facility] CLIA [id number] [address] [place] [address] [place] Ketones Ql (U) Negative Normal Negative, Trace [facility] Comment on above: Order Comment: Speci men Type: URINE SPECIMEN Ordering Facility: [facility] Address: [address] Performed By: #### L [id number] #### [facility] CLIA [id number] [address] [place] [address] [place] Leukocyte esterase Test strip Ql (U) 75 Bonnie/uL Abnormal Negative, 25 Bonnie/uL [facility] Comment on above: Order Comment: Speci men Type: URINE SPECIMEN Ordering Facility: [facility] Address: [address] [place], [place] [address] Performed By: #### L [id number] #### [facility] CLIA [id number] [address] [place] [address] [place] Nitrite Ql (U) Negative Normal Negative [facility] Comment on above: Order Comment: Speci men Type: URINE SPECIMEN Ordering Facility: [facility] Address: [address] [place], [place] [address] Performed By: #### L [id number] #### [facility] CLIA [id number] [address] [place] [address] [place] pH (U) 6.0 [pH] Normal 5.0-8.0 [facility] Comment on above: Order Comment: Speci men Type: URINE SPECIMEN Ordering Facility: [facility] Address: [address] [place], [place] [address] Performed By: #### L [id number] #### [facility] CLIA [id number] [address] [place] [address] [place] Protein (U) [Mass/Vol] Negative Normal Trace , Negative [facility] Comment on above: Order Comment: Speci men Type: URINE SPECIMEN Ordering Facility: [facility] Address: [address] [place], [place] [address] Performed By: #### L [id number] #### [facility] CLIA [id number] [address] [place] [address] [place] Specific gravity (U) [Rel density] 1.009 Normal 1.005-1.03 0 [facility] Comment on above: Order Comment: Speci men Type: URINE SPECIMEN Ordering Facility: [facility] Address: [address] [address] Performed By: #### L [id number] #### [facility] CLIA [id number] [address] [place] [address] [place] Urobilinogen Ql (U) Negative Normal Negative [facility] Comment on above: Order Comment: Speci men Type: URINE SPECIMEN Ordering Facility: [facility] Address: [address] [address] Performed By: #### L [id number] #### [facility] CLIA [id number] [address] [place] [address] [place] Bilirubin Ql (U) Negative Negative [facility] Clarity (Unsp spec) Clear Clear [facility] Color (U) Light Yellow Yellow [facility] Glucose Test strip (U) [Mass/Vol] Negative Trace, Negative [facility] Hemoglobin Ql (U) Negative Negative, Trace [facility] Ketones Ql (U) Negative Negative, Trace [facility] Leukocyte esterase Test strip Ql (U) 75 Bonnie/uL Abnormal Negative, 25 Bonnie/uL [facility] Nitrite Ql (U) Negative Negative [facility] pH (U) 6.0 [pH] 5.0 - 8.0 [facility] Protein (U) [Mass/Vol] Negative Trace , Negative [facility] Specific gravity (U) [Rel density] 1.009 1.005 - 1.030 [facility] Urobilinogen Ql (U) Negative Negative [facility] LIPID PROFILEon 06-12-2022 CHOL-HDL RATIO NORM SEE BELOW Normal [facility] Comment on above: Result Comment: 3.3 - 4.4 LOW RISK 4.4 - 7.1 AVERAGE RISK 7.1 - 11.0 MODERATE RISK >11.0 HIGH RISK Performed By: #### L IPID, BMP #### [facility] [address] [address] [address] Moreno Amato Cholesterol [Mass/Vol] 178 mg/dL Normal <=200 Th e [facility] Comment on above: Performed By: #### L IPID, BMP #### [facility] [address] [address] [address] Moreno Amato Cholesterol in HDL [Mass/Vol] 39 mg/dL Critically low 40-60 [facility] Comment on above: Performed By: #### L IPID, BMP #### [facility] [address] [address] [address] Moreno Amato Cholesterol in LDL [Mass/Vol] 92.0 mg/dL Normal [facility] Comment on above: Performed By: #### L IPID, BMP #### [facility] [address] [place] [address] Dr. Moreno Amato Cholesterol.total/Chol esterol in HDL [Mass ratio] 4.6 {ratio} Normal [facility] Comment on above: Performed By: #### L IPID, BMP #### [facility] [address] [address] [address] Moreno Amato HDL NORMAL > or = 60 mg/dl - LO W CARDIOVASCULAR RISK <40 mg/dl - HIGH CARDIOVASCULAR RISK Normal [facility] Comment on above: Performed By: #### L IPID, BMP #### [facility] [address] [place] [address] Dr. Moreno Amato LDL CALC NORMAL SEE BELOW Normal [facility] Comment on above: Result Comment: <100 mg/dl OPTIMAL 100 - 129 mg/dl NEAR OR ABOVE OPTIMAL 130 - 159 mg/dl BORDERLINE HIGH 160 - 189 mg/dl HIGH >190 mg/dl VERY HIGH Performed By: #### L IPID, BMP #### [facility] [address] [address] [address] Moreno Amato Triglyceride [Mass/Vol] 235 mg/dL Critically high <=150 [facility] Comment on above: Performed By: #### L IPID, BMP #### [facility] [address] [address] [address] Moreno Amato VLDL CALC 47.0 mg/dL Normal [facility] Comment on above: Performed By: #### L IPID, BMP #### [facility] [address] [place] [address] Dr. Moreno Amato PROF CHEM 8 (BAS METB)on Anion gap [Moles/Vol] 10.7 mmol/L Normal [facility] Comment on above: Performed By: #### L IPID, BMP #### [facility] [address] [place] [address] Dr. Moreno Amato Calcium [Mass/Vol] 9.6 mg/dL Normal 8.5-10.1 [facility] Comment on above: Performed By: #### L IPID, BMP #### [facility] [address] [place] [address] Dr. Moreno Amato Chloride [Moles/Vol] 104 mmol/L Normal 98-107 [facility] Comment on above: Performed By: #### L IPID, BMP #### [facility] [address] [place] [address] Dr. Moreno Amato CO2 [Moles/Vol] 31.6 mmol/L Normal 21.0-32.0 [facility] Comment on above: Performed By: #### L IPID, BMP #### [facility] [address] [place] [address] Dr. Moreno mAato Creatinine [Mass/Vol] 1.58 mg/dL Critically high 0.55-1.02 [facility] Comment on above: Performed By: #### L IPID, BMP #### [facility] [address] [place] [address] Dr. Moreno Amato EGFR-AF MAURITANIAN 40 mL/min/1.73m2 Critically low >=60 [facility] Comment on above: Performed By: #### L IPID, BMP #### [facility] [address] [place] [address] Dr. Moreno Amato EGFR-NON AF MAURITANIAN 33 mL/min/1.73m2 Critically low >=60 [facility] Comment on above: Performed By: #### L IPID, BMP #### [facility] [address] [place] [address] Dr. Moreno Amato Glucose [Mass/Vol] 79 mg/dL Normal 74-106 [facility] Comment on above: Performed By: #### L IPID, BMP #### [facility] [address] [place] [address] Dr. Moreno Amato Potassium [Moles/Vol] 4.3 mmol/L Normal 3.5-5.1 [facility] Comment on above: Performed By: #### L IPID, BMP #### [facility] [address] [place] [address] Dr. Moreno Amato Sodium [Moles/Vol] 142 mmol/L Normal 136-145 [facility] Comment on above: Performed By: #### L IPID, BMP #### [facility] [address] [place] [address] Dr. Moreno Amato Urea nitrogen [Mass/Vol] 21.0 mg/dL Critically high 7.0-18.0 [facility] Comment on above: Performed By: #### L IPID, BMP #### [facility] [address] [place] [address] Dr. Moreno Amato Urea nitrogen/Creatinine [Mass ratio] 13.3 mg/mg Normal [facility] Comment on above: Performed By: #### L IPID, BMP #### [facility] [address] [place] [address] Dr. Moreno Amato URINE T PROTEIN CREAT RATIOo n 06-12-2022 Protein (U) [Mass/Vol] 8.8 mg/dL Normal <=12.0 [facility] Comment on above: Performed By: #### A MY, CMP, LIPA #### [facility] [address] [place] [address] Dr. Moreno Amato UR PROT CREAT RAT 0.12 Normal [facility] Comment on above: Performed By: #### A MY, CMP, LIPA #### [facility] [address] [place] [address] Dr. Moreno Amato URINE CREAT 70.82 mg/dL Normal 20.00-300. 00 [facility] Comment on above: Performed By: #### A MY, CMP, LIPA #### [facility] [address] [address] [address] Moreno Amato HEMOGLOBINon 04-30-2022 Hemoglobin (Bld) [Mass/Vol] 15.3 g/dL Normal 12.0-16.0 [facility] Comment on above: Performed By: #### A MY, CMP, LIPA #### [facility] [address] [address] [address] Moreno Amato LIPID PROFILEon 03-27-2022 CHOL-HDL RATIO NORM SEE BELOW Normal [facility] Comment on above: Result Comment: 3.3 - 4.4 LOW RISK 4.4 - 7.1 AVERAGE RISK 7.1 - 11.0 MODERATE RISK >11.0 HIGH RISK Performed By: #### A MY, CMP, LIPA #### [facility] [address] [address] [address] Moreno Amato Cholesterol [Mass/Vol] 217 mg/dL Critically high <=200 [facility] Comment on above: Performed By: #### A MY, CMP, LIPA #### [facility] [address] [address] [address] Moreno Amato Cholesterol in HDL [Mass/Vol] 42 mg/dL Normal 40-60 [facility] Comment on above: Performed By: #### A MY, CMP, LIPA #### [facility] [address] [address] [address] Moreno Amato Cholesterol in LDL [Mass/Vol] 121.6 mg/dL Normal [facility] Comment on above: Performed By: #### A MY, CMP, LIPA #### [facility] [address] [address] [address] Moreno Amato Cholesterol.total/Chol esterol in HDL [Mass ratio] 5.2 {ratio} Normal [facility] Comment on above: Performed By: #### A MY, CMP, LIPA #### [facility] [address] [address] [address] Moreno Amato HDL NORMAL > or = 60 mg/dl - LO W CARDIOVASCULAR RISK <40 mg/dl - HIGH CARDIOVASCULAR RISK Normal [facility] Comment on above: Performed By: #### A MY, CMP, LIPA #### [facility] [address] [address] [address] Moreno Amato LDL CALC NORMAL SEE BELOW Normal [facility] Comment on above: Result Comment: <100 mg/dl OPTIMAL 100 - 129 mg/dl NEAR OR ABOVE OPTIMAL 130 - 159 mg/dl BORDERLINE HIGH 160 - 189 mg/dl HIGH >190 mg/dl VERY HIGH Performed By: #### A MY, CMP, LIPA #### [facility] [address] [address] [address] Moreno Amato Triglyceride [Mass/Vol] 267 mg/dL Critically high <=150 [facility] Comment on above: Performed By: #### A MY, CMP, LIPA #### [facility] [address] [address] [address] Moreno Amato VLDL CALC 53.4 mg/dL Normal [facility] Comment on above: Performed By: #### A MY, CMP, LIPA #### [facility] [address] [address] [address] Moreno Amato PROF CHEM 8 (BAS METB)on Anion gap [Moles/Vol] 11.1 mmol/L Normal [facility] Comment on above: Performed By: #### A MY, CMP, LIPA #### [facility] [address] [place] [address] Dr. Moreno Amato Calcium [Mass/Vol] 9.2 mg/dL Normal 8.5-10.1 [facility] Comment on above: Performed By: #### A MY, CMP, LIPA #### [facility] [address] [address] [address] Moreno Amato Chloride [Moles/Vol] 104 mmol/L Normal 98-107 [facility] Comment on above: Performed By: #### A MY, CMP, LIPA #### [facility] [address] [place] [address] Dr. Moreno Amato CO2 [Moles/Vol] 27.4 mmol/L Normal 21.0-32.0 [facility] Comment on above: Performed By: #### A MY, CMP, LIPA #### [facility] [address] [address] [address] Moreno Amato Creatinine [Mass/Vol] 1.30 mg/dL Critically high 0.55-1.02 [facility] Comment on above: Performed By: #### A MY, CMP, LIPA #### [facility] [address] [address] [address] Moreno Amato EGFR-AF MAURITANIAN 51 mL/min/1.73m2 Critically low >=60 [facility] Comment on above: Performed By: #### A MY, CMP, LIPA #### [facility] [address] [address] [address] oMreno Amato EGFR-NON AF MAURITANIAN 42 mL/min/1.73m2 Critically low >=60 [facility] Comment on above: Performed By: #### A MY, CMP, LIPA #### [facility] [address] [address] [address] Moreno Amato Glucose [Mass/Vol] 102 mg/dL Normal 74-106 [facility] Comment on above: Performed By: #### A MY, CMP, LIPA #### [facility] [address] [address] [address] Moreno Amato Potassium [Moles/Vol] 4.5 mmol/L Normal 3.5-5.1 [facility] Comment on above: Performed By: #### A MY, CMP, LIPA #### [facility] [address] [address] [address] Moreno Amato Sodium [Moles/Vol] 138 mmol/L Normal 136-145 [facility] Comment on above: Performed By: #### A MY, CMP, LIPA #### [facility] [address] [address] [address] Moreno Amato Urea nitrogen [Mass/Vol] 23.0 mg/dL Critically high 7.0-18.0 [facility] Comment on above: Performed By: #### A MY, CMP, LIPA #### [facility] [address] [address] [address] Moreno Amato Urea nitrogen/Creatinine [Mass ratio] 17.7 mg/mg Normal [facility] Comment on above: Performed By: #### A MY, CMP, LIPA #### [facility] [address] [place] [address] Dr. Moreno Johnson 03-27-2022 AST [Catalytic activity/Vol] 24 U/L Normal 15-37 [facility] Comment on above: Performed By: #### A MY, CMP, LIPA #### [facility] [address] [address] [address] Moreno ROSEPTon 03-27-2022 ALT [Catalytic activity/Vol] 20 U/L Normal 14-59 [facility] Comment on above: Performed By: #### A TOMMY CMP, LIPA #### [facility] [address] [place] [address] Dr. Moreno Amato COVID/FLU RT-PCRon SARS-CoV-2 (COVID-19) RNA ELISA+probe Ql (Unsp spec) Negative [facility] Other COVID/FLU RT-PCR Negative [facility] [employer] Other Quick Strepon 03-19-2022 S. pyogenes Org specific cx Ql (Throat) Negative [employer] Other Quick Strep [facility] [employer] Other Tobacco Screening.on 023 Adult depression screening assessment No [facility] y [address] DO Work Phone: Fall risk assessment c) Not medically indicated [facility] [address] DO Work Phone: Tobacco use status [facility] b) No [facility] 250 DO Work Phone: PAP ACOG PANEL 2: 30 to 65on 03-02-2022 . . Normal [facility] Comment on above: Result Comment: Perf ormed at: WB Performed By: #### A MY, CMP, LIPA #### [facility] [address] [place] [address] Dr. Moreno Amato Age Gdln ACOG Testing 30-65 Normal [facility] Comment on above: Performed By: #### A MY CMP, LIPA #### [facility] [address] [address] [address] Moreno Amato DIAGNOSIS: Comment Normal [facility] Comment on above: Result Comment: NEGA TIVE FOR INTRAEPITHELIAL LESION OR MALIGNANCY. Performed at: WB Performed By: #### A MY, CMP, LIPA #### [facility] [address] [address] [address] Moreno Amato HPV Aptima Negative Normal Negative [facility] Comment on above: Result Comment: This nucleic acid amplification test detects fourteen high-risk HPV types (16,18,31,33,35,39,45,51,52,56,58,59,66,68) without differentiation. Performed at: =G Performed By: #### A TOMMY CMP, LIPA #### [facility] [address] [place] [address] Dr. Moreno Amato HPV Genotype Reflex Comment Normal [facility] Comment on above: Result Comment: Crit eria not met, HPV Genotype not performed. Performed at: WB Performed By: #### A ERIKA SANDERS, LIPA #### [facility] [address] [place] [address] Dr. Moreno Amato Methodology: Comment Normal [facility] Comment on above: Result Comment: This liquid based ThinPrep(R) pap test was screened with the use of an image guided system. Performed at: WB Performed By: #### A TOMMY CMP, LIPA #### [facility] [address] [place] [address] Dr. Moreno Amato Note: Comment Normal [facility] Comment on above: Result Comment: The Pap [...] By: #### A MY, CMP, LIPA #### [facility] [address] [address] [address] Moreno Amato Performed by: Comment Normal [facility] Comment on above: Result Comment: Maria Luisa Chou, Hot Box Checker (ASCP) Performed at: [facility] Performed By: #### A MY, CMP, LIPA #### [facility] [id number] Moreno Amato Specimen adequacy: Comment Normal [facility] Comment on above: Result Comment: Sati sfactory for evaluation. Endocervical and/or squamous metaplastic cells (endocervical component) are present. Performed at: [facility] Performed By: #### A MY, CMP, LIPA #### [facility] [id number] Moreno Amato XR CHEST 2 Von [...] by: AMY ROSS Date: 2022-02-19 22:40 Normal [facility] CARDIAC STRESS/REST INJE CTIONon 01-23-2022 [facility] CARDIAC STRESS/REST INJECTION Patient Name: DEYSI HERNANDEZ STUDY: MYOCARDIAL PERFUSION STRESS TEST WITH LEXISCAN Performing facility: [facility], [address], [address], [place] [id number] [facility] Provider: Carlene Beal MD, FACC PCP: Dr. Mariann Thompson Supervising provider: Autumn Guidry RN, VALVE SETTER INDICATION: Chest discomfort Elevated troponin Hyperlipidemia HISTORY: Gender: F; Age: 61 y/o ; Height: 0 cm; Weight: 71.6768926 kg. High Cholesterol; HTN; Chest Pain; Quit smoking <1 year ago. COMPARISON: No comparison. ACCESSION NUMBER(S): [id number]; [id number]; [id number] ORDERING CLINICIAN: MARQUEZ BEAL TECHNIQUE: ONE DAY [...] signed by: WAQAR MARTINEZ MD Normal [facility] No Panel Informationon 01-[address] [facility] 600 DO Work Phone: Tobacco Screening.on 022 Fall risk assessment a) No falls within the last year [facility] 600 DO Work Phone: Tobacco use status CPHS b) No [facility] 600 DO Work Phone: MG MAMM SCREEN 3D NIRMALA CADon 10-30-2021 MG MAMM SCREEN 3D NIRMALA CAD Patient: DEYSI HERNANDEZ Exam Date: 10/30/2021 : 1960 Gender:F Ordering : SHAIKH Ford THOMPSON . Admission #: [id number] Family : Order #: [id number] CLICK HERE TO VIEW EXAM RADIOLOGY REPORT PROCEDURE: MAMMOGRAM SCREENING 3D BILATERAL CAD COMPARISON: MG MAMM NIRMALA SCRN W CAD DIG, 12/05/2012. INDICATIONS: Screening mammography Calculator Name NCI Breast Cancer Risk Assessment Tool 5 Year Breast Cancer Risk 1.00% Lifetime Breast Cancer Risk 5.50% Personal Breast Cancer No Personal Ovarian Cancer No Treatments None Family Cancers None LOCATION: [facility] BREAST COMPOSITION: Scattered areas fibroglandular density. [...] M.D. on 10/31/2021 at 08:52 Normal [facility] Cardiac Stress Teston 2021 Cardiac Stress Test [address], [address] [place] [address] Exercise Stress Test Patient Name: DEYSI HERNANDEZ Ordering Physician: [id number] Beal MD Study Date: 10/17/2021 Reading Physician: [id number] Jaycob Newman MD, [facility] MRN/PID: [id number] Supervising Physician: [id number] Jaycob Newman MD, [facility] Accession/Order#: [id number] Referring Physician: [id number] BEAL Date of : 1960 PCP: Mariann HTOMPSON Gender: M Fellow: Height: 162.56 cm Nurse: Jackie Shen RN Weight: 68.95 kg [employer] Installer: KYLE BSA: 1.74 m2 Technologist: BMI: 26.09 kg/m2 Additional Staff: Age: 61 years cc report to: Patient Location: cc report to: [id number] Marquez Beal MD Study Type: Cardiac Stress Test Diagnosis/ICD: R07.89-Other chest pain Indication: Chest Pain Atypical Procedure/CPT: Stress Test Interpretation-[id number]; Stress Test Supervision-[id number] Falls Risk: Low: Patient has low risk [...] The adequate level of stress was achieved. [id number] Jaycob Newman MD, FACC Electronically signed on 10/23/2021 at 12:29:[address] [facility] Cardiac Stress Test Please click on the link to view the study images [facility] Work Phone: Cardiac Stress Test MP-No [facility] 250 DO Work Phone: Creatinine and Glomerular fi ltration rate.predicted panel (S/P/Bld)Ordered By: Marquez Beal on 09-18-2021 Creatinine [Mass/Vol] 1.10 mg/dL 0.44-1.03 [facility] Estimated glomerular filtrat ion rate (GFR) non- AmericanOrdered By: Marquez Beal on 09-18-2021 GFR/1.73 sq M.predicted among non-blacks MDRD (S/P/Bld) [Vol rate/Area] 51 mL/Min [facility] No Panel InformationOrdered By: Marquez Beal on 09-18-2021 Estimated GFR () > 60 mL/Min [facility] Comment on above: GFR estimated refere nce range: According to KDOQI guidelines, <60 ml/min/1.73m2 is sufficient to diagnose a patient with chronic kidney disease. Pharmacy Creatinine Clearance (Chem N/A [facility] No Panel Informationon 09-18 9.8\S\9.8 Normal 8.2-10.2 [facility] [facility] 250 DO Work Phone: Comment on above: PERFORMED BY:[address] [address] [place], [place] [phone] MEDICAL DIRECTORJERAMY CALDWELL M.D. 25.1\S\25.1 Normal 22.0-30.0 [facility] 250 DO Work Phone: 100\S\100 Normal 95-114 [facility] 250 DO Work Phone: 3.9\S\3.9 Normal 3.5-5.1 [facility] 250 DO Work Phone: 138\S\138 Normal 136-146 [facility] 250 DO Work Phone: > 60 Normal [facility] 250 DO Work Phone: Comment on above: GFR estimated refere nce range: According to KDOQI guidelines, <60 ml/min/1.73m2 is sufficient to diagnose a patient with chronic kidney disease. 51\S\51 Normal [facility] 250 DO Work Phone: 1.10\S\1.10 above high threshold [facility].44-1.03 [facility] Work Phone: 15\S\15 Normal 9-23 [facility] 250 DO Work Phone: 95\S\95 Normal 70-100 [facility] Work Phone: Comment on above: Random Glucose Refer ence Range is dependent on time and content of last meal. Glucose of more than 200 mg/dL in a nonstressed, ambulatory subject supports the diagnosis of Diabetes Mellitus. ADA recommended reference range Serum or plasma calcium teagan urement (mass/volume)Ordered By: Marquez Beal on 09-18-2021 Calcium [Mass/Vol] 9.8 mg/dL 8.2-10.2 [facility] Serum or plasma chloride sophia surement (moles/volume)Ordered By: Marquez Beal on 09-18-2021 Chloride [Moles/Vol] 100 mmol/L 95-114 [facility] Serum or plasma glucose teagan urement (mass/volume)Ordered By: Marquez Beal on 09-18-2021 Glucose [Mass/Vol] 95 mg/dL 70-100 [facility] Comment on above: ADA recommended refe rence range Random Glucose Reference Range is dependent on time and content of last meal. Glucose of more than 200 mg/dL in a nonstressed, ambulatory subject supports the diagnosis of Diabetes Mellitus. Serum or plasma potassium me asurement (moles/volume)Ordered By: Marquez Beal on 09-18-2021 Potassium [Moles/Vol] 3.9 mmol/L 3.5-5.1 [facility] Serum or plasma sodium measu rement (moles/volume)Ordered By: Marquez Beal on 09-18-2021 Sodium [Moles/Vol] 138 mmol/L 136-146 [facility] Serum or plasma total carbon dioxide measurement (moles/volume)Ordered By: Marquez Beal on 09-18-2021 CO2 [Moles/Vol] 25.1 mmol/L 22.0-30.0 [facility] Serum or plasma urea nitroge n measurement (mass/volume)Ordered By: Marquez Beal on 09-18-2021 Urea nitrogen [Mass/Vol] 15 mg/dL 9-23 [facility] Tobacco Screening.on 022 Adult depression screening assessment No [facility] [address] DO Work Phone: Fall risk assessment a) No falls within the last year [facility] 250 DO Work Phone: Tobacco use status CPHS a) Yes [facility] 250 DO Work Phone: Tobacco Screening. Yes [facility] 250 DO Work Phone: Bacterial blood cultureOrder ed By: Bong Bansal on 08-19-2021 Bacteria identified Cx Nom (Bld) NO GROWTH 5 DAYS [facility] Basophils Auto (Bld) [#/Vol] Ordered By: Alaina Arce on 08-17-2021 Basophils (Bld) [#/Vol] 0.1 10*3/uL 0.0-0.2 [facility] Basophils/100 WBC Auto (Bld) Ordered By: Alaina Arce on 08-17-2021 Basophils/100 WBC (Bld) 0.7 % . [facility] Blood hemoglobin measurement (mass/volume)Ordered By: Alaina Arce on 08-17-2021 Hemoglobin (Bld) [Mass/Vol] 15.0 g/dL 11.8-15.4 [facility] Blood leukocytes automated c ount (number/volume)Ordered By: Alaina Arce on 08-17-2021 WBC (Bld) [#/Vol] 10.0 10*3/uL 4.5-11.0 [facility] Creatinine and Glomerular fi ltration rate.predicted panel (S/P/Bld)Ordered By: Alaina Arce on 08-17-2021 Creatinine [Mass/Vol] 1.27 mg/dL 0.44-1.03 [facility] Eosinophils Auto (Bld) [#/Vo l]Ordered By: Alaina Arce on 08-17-2021 Eosinophils (Bld) [#/Vol] 0.2 10*3/uL 0.0-0.45 [facility] Eosinophils/100 WBC Auto (Bl d)Ordered By: Alaina Arce on 08-17-2021 Eosinophils/100 WBC (Bld) 1.8 % . [facility] Erythrocyte distribution wid th Auto (RBC) [Ratio]Ordered By: Alaina Arce on 08-17-2021 Erythrocyte distribution width (RBC) [Ratio] 12.7 % 11.9-15.3 [facility] Estimated glomerular filtrat ion rate (GFR) non- AmericanOrdered By: Alaina Arce on 08-17-2021 GFR/1.73 sq M.predicted among non-blacks MDRD (S/P/Bld) [Vol rate/Area] 43 mL/Min [facility] Hematocrit Auto (Bld) [Volum e fraction]Ordered By: Alaina Arce on 08-17-2021 Hematocrit (Bld) [Volume fraction] 42.6 % 34.0-46.4 [facility] Laboratory - Hematology and Cell countsOrdered By: Alaina Arce on 08-17-2021 Nucleated RBC/100 WBC (Bld) [Ratio] 0.0 % 0-0.5 [facility] Lymphocytes Auto (Bld) [#/Vo l]Ordered By: Alaina Arce on 08-17-2021 Lymphocytes (Bld) [#/Vol] 2.4 10*3/uL 1.00-4.8 [facility] Lymphocytes/100 WBC Auto (Bl d)Ordered By: Alaina Arce on 08-17-2021 Lymphocytes/100 WBC (Bld) 23.7 % . [facility] MCH Auto (RBC) [Entitic mass ]Ordered By: Alaina Arce on 08-17-2021 MCH (RBC) [Entitic mass] 31.0 pg 24.7-34.3 [facility] MCHC Auto (RBC) [Mass/Vol]Or dered By: Alaina Arce on 08-17-2021 MCHC (RBC) [Mass/Vol] 35.3 g/dL 32.0-35.0 [facility] MCV Auto (RBC) [Entitic vol] Ordered By: Alaina Arce on 08-17-2021 MCV (RBC) [Entitic vol] 87.8 fL 80-100 [facility] Monocytes Auto (Bld) [#/Vol] Ordered By: Alaina Arce on 08-17-2021 Monocytes (Bld) [#/Vol] 1.0 10*3/uL 0.0-0.8 [facility] Monocytes/100 WBC Auto (Bld) Ordered By: Alaina Arce on 08-17-2021 Monocytes/100 WBC (Bld) 10.2 % . [facility] Neutrophils Auto (Bld) [#/Vo l]Ordered By: Alaina Arce on 08-17-2021 Neutrophils (Bld) [#/Vol] 6.3 10*3/uL 1.8-7.7 [facility] Neutrophils/100 WBC Auto (Bl d)Ordered By: Alaina Arce on 08-17-2021 Neutrophils/100 WBC (Bld) 63.6 % . [facility] No Panel InformationOrdered By: Alaina Arce on 08-17-2021 Estimated GFR () 52 mL/Min [facility] Comment on above: GFR estimated refere nce range: According to KDOQI guidelines, <60 ml/min/1.73m2 is sufficient to diagnose a patient with chronic kidney disease. Pharmacy Creatinine Clearance (Chem 47.54 [facility] Platelet mean volume Auto (B ld) [Entitic vol]Ordered By: Alaina Arce on 08-17-2021 Platelet mean volume (Bld) [Entitic vol] 8.5 fL 6.3-10.7 [facility] Platelets Auto (Bld) [#/Vol] Ordered By: Alaina Arce on 08-17-2021 Platelets (Bld) [#/Vol] 241 10*3/uL 150-450 [facility] RBC Auto (Bld) [#/Vol]Ordere d By: Alaina Arce on 08-17-2021 RBC (Bld) [#/Vol] 4.85 10*6/uL 3.60-5.00 [facility] Serum or plasma calcium teagan urement (mass/volume)Ordered By: Alaina Arce on 08-17-2021 Calcium [Mass/Vol] 8.9 mg/dL 8.2-10.2 [facility] Serum or plasma chloride sophia surement (moles/volume)Ordered By: Alaina Arce on 08-17-2021 Chloride [Moles/Vol] 101 mmol/L 95-114 [facility] Serum or plasma glucose teagan urement (mass/volume)Ordered By: Alaina Arce on 08-17-2021 Glucose [Mass/Vol] 132 mg/dL 70-100 [facility] Comment on above: ADA recommended refe rence range Random Glucose Reference Range is dependent on time and content of last meal. Glucose of more than 200 mg/dL in a nonstressed, ambulatory subject supports the diagnosis of Diabetes Mellitus. Serum or plasma potassium me asurement (moles/volume)Ordered By: Alaina Arce on 08-17-2021 Potassium [Moles/Vol] 2.9 mmol/L 3.5-5.1 [facility] Comment on above: Results called at 0721 on 08/17/21 Serum or plasma sodium measu rement (moles/volume)Ordered By: Alaina Arce on 08-17-2021 Sodium [Moles/Vol] 137 mmol/L 136-146 [facility] Serum or plasma total carbon dioxide measurement (moles/volume)Ordered By: Alaina Arce on 08-17-2021 CO2 [Moles/Vol] 25.3 mmol/L 22.0-30.0 [facility] Serum or plasma urea nitroge n measurement (mass/volume)Ordered By: Alaina Arce on 08-17-2021 Urea nitrogen [Mass/Vol] 17 mg/dL 9-23 [facility] Albumin [Mass/volume] in Ser um or PlasmaOrdered By: Alaina Arce on 08-16-2021 Albumin [Mass/Vol] 3.1 g/dL 3.2-5.5 [facility] Globulin Calc (S) [Mass/Vol] Ordered By: Alaina Arce on 08-16-2021 Globulin (S) [Mass/Vol] 3.0 g/dL [facility] Protein [Mass/volume] in Ser um or PlasmaOrdered By: Alaina Arce on 08-16-2021 Protein [Mass/Vol] 6.1 g/dL 6.1-7.9 [facility] Serum or plasma alanine spencer otransferase measurement without P-5'-P (enzymatic activiOrdered By: Alaina Arce on 08-16-2021 ALT No additional P-5'-P [Catalytic activity/Vol] 57 U/L 10-60 [facility] Serum or plasma albumin/glob ulin mass ratioOrdered By: Alaina Arce on 08-16-2021 Albumin/Globulin [Mass ratio] 1.0 {ratio} [facility] Serum or plasma alkaline calvin sphatase measurement (enzymatic activity/volume)Ordered By: Alaina Arce on 08-16-2021 ALP [Catalytic activity/Vol] 76 U/L 32-92 [facility] Serum or plasma aspartate am inotransferase measurement (enzymatic activity/volume)Ordered By: Alaina Arce on 08-16-2021 AST [Catalytic activity/Vol] 47 U/L 10-42 [facility] Serum or plasma total biliru bin measurement (mass/volume)Ordered By: Alaina Arce on 08-16-2021 Bilirubin [Mass/Vol] 1.5 mg/dL 0.3-1.2 [facility] Comment on above: Samples from patient s who have taken Naproxen have shown spurious elevation in Total Bilirubin levels. A metabolite of Naproxen, O-desmethylnaproxen, has been shown to interfere with the Alhaji-Joseph method for measuring Total Bilirubin. Amphetamine Screen Ql (U)Ord ered By: Alaina Arce on 08-15-2021 Amphetamines Ql (U) Negative Negative [facility] Antithrombin measurement (un its/volume) in platelet poor plasma by chromogenic methodOrdered By: Janet Hamm on 08-15-2021 Antithrombin Chromogenic method Qn (PPP) 113 % 75-135 [facility] Comment on above: Direct Xa inhibitor anticoagulants such as rivaroxaban, apixaban and edoxaban will lead to spuriously elevated antithrombin activity levels possibly masking a deficiency. Barbiturates [Presence] in U rineOrdered By: Alaina Arce on 08-15-2021 Barbiturates Ql (U) Negative Negative [facility] Benzodiazepines [Presence] i n UrineOrdered By: Alaina Arce on 08-15-2021 Benzodiazepines Ql (U) Negative Negative [facility] Beta 2 glycoprotein 1 IgG Ab [Units/volume] in SerumOrdered By: Janet Hamm on 08-15-2021 Beta 2 glycoprotein 1 IgG Qn (S) <9 0-20 [facility] Comment on above: Result Units: GPI Ig [...] glycoprotein 1 IgM Qn (S) <9 0-32 [facility] Comment on above: Result Units: GPI Ig [...] 08-15-2021 Cannabinoids Screen Ql (U) Negative Negative [facility] Comment on above: These are unconfirme d results and should not be used for legal purposes. Drug Cut-Off Concentration: AMPH 1000 ng/mL DRAKE 200 ng/mL UNIQUE 200 ng/mL COCM 300 ng/mL OP 300 ng/mL PCP 25 ng/mL THC 20 ng/mL Cardiolipin IgG Ab [Units/vo lume] in Serum by ImmunoassayOrdered By: Janet Hamm on 08-15-2021 Cardiolipin IgG IA Qn (S) <9 GPL U/mL 0-14 [facility] Comment on above: Negative: <15 Indeterminate: 15 - 20 Low-Med Positive: >20 - 80 High Positive: >80 Cardiolipin IgM Ab [Units/vo lume] in Serum by ImmunoassayOrdered By: Janet Hamm on 08-15-2021 Cardiolipin IgM IA Qn (S) 17 MPL U/mL 0-12 [facility] Comment on above: Negative: <13 Indeterminate: 13 - 20 Low-Med Positive: >20 - 80 High Positive: >80 Cholesterol [Mass/volume] in Serum or PlasmaOrdered By: Janet Hamm on 08-15-2021 Cholesterol [Mass/Vol] 259 mg/dL 140-200 [facility] Comment on above: Chol less than 200 m g/dl low risk Chol 201-239 mg/dl borderline risk Chol 240 mg/dl and greater high risk Cholesterol in LDL Calc [Mas s/Vol]Ordered By: Janet Hamm on 08-15-2021 Cholesterol in LDL [Mass/Vol] 176 mg/dL 0-100 [facility] Comment on above: LDL ATP III CLASSIFI CATION LDL less than 100 mg/dL Optimal LDL 100-129 mg/dL Near or above optimal LDL 130-159 mg/dL Borderline high LDL 160-189 mg/dL High LDL greater than 189 mg/dL Very high Cholesterol in VLDL Calc [Ma ss/Vol]Ordered By: Janet Hamm on 08-15-2021 Cholesterol in VLDL [Mass/Vol] 32 mg/dL [facility] Dilute Vinay's viper venom timeOrdered By: Janet Hamm on 08-15-2021 dRVVT Coag (PPP) [Time] 45.5 s 0.0-47.0 [facility] Free protein S measurementOr dered By: Janet Hamm on 08-15-2021 Protein S Free Ag IA Qn (PPP) 134 % 61-136 [facility] Functional protein C measure mentOrdered By: Janet Hamm on 08-15-2021 Protein C actual/normal Chromogenic method (PPP) [Rel catalytic activity/Vol] 158 % 73-180 [facility] Laboratory - Drug toxicology Ordered By: Alaina Arce on 08-15-2021 Opiates Ql (U) Negative Negative [facility] Lupus anticoagulant [Interpr etation] in Platelet poor plasmaOrdered By: Janet Hamm on 08-15-2021 Lupus anticoagulant (PPP) [Interp] Comment: . [facility] Comment on above: No lupus anticoagula nt was detected. No Panel InformationOrdered By: Janet Hamm on 08-15-2021 Activated Protein C Resist Confirm 2.6 ratio 2.2-3.5 [facility] Comment on above: The APCR result may be falsely increased (masking an abnormal, low APCR result) in patients on direct Xa inhibitor (e.g., rivaroxaban, apixaban, edoxaban) or a direct thrombin inhibitor (e.g., dabigatran) anticoagulant therapy due to assay interference by these drugs. Phencyclidine Screen Ql (U)O rdered By: Alaina Arce on 08-15-2021 Phencyclidine Ql (U) Negative Negative [facility] Plasminogen measurementOrder ed By: Janet Hamm on 08-15-2021 Plasminogen actual/normal Chromogenic method (PPP) [Rel catalytic activity/Vol] 119 % 70-150 [facility] Platelet poor plasma ratio o f lupus anticoagulant-sensitive activated partial thromboOrdered By: Janet Hamm on 08-15-2021 aPTT.lupus sensitive.excess phospholipid actual/normal Coag (PPP) [Relative time] 38.6 sec 0.0-47.6 [facility] Prothrombin gene [id number] mut ation detectionOrdered By: Janet Hamm on 08-15-2021 F2 gene targeted mutation analysis [employer] Nom (Bld/Tiss) See comment . [facility] Comment on above: Result: c.*97G>A - N [...] the F2 gene and a c.1601G>A (p. Kpo659Lta) variant in the F5 gene (commonly referred to as Factor V Leiden) have an approximately 20- fold increased risk for venous thromboembolism. Risks are likely to be even higher in more complex genotype combinations involving the F2 c.*97G>A variant and Factor V Leiden (PMID: 14157942). Additional risk factors include but are not [...] health care providers to discuss results at [phone] ([id number]). Test Details: Variant analyzed: c.*97G>A, previously referred to as [id number] Methods/Limitations: DNA analysis of the F2 gene [...] developed and its performance characteristics determined by [employer]. It has not been cleared or approved by the Food and Drug Administration. References: Taj Church, Briana MCLAUGHLIN, Gilberto R, Bogdan WW, Yanick JH; ACMG Professional Practice and Guidelines Committee. Addendum: [employer] consensus statement on factor V Leiden mutation testing. Zoë Med. 2020Apr 22. doi: 10.1038/s48933-279-10190-y. PMID: 79442341. Edgardo KRISHNA. Prothrombin Thrombophilia. 2005Sep 11 [Updated 2020Mar 24]. In: Rober MP, Thaddeus HH, Iman RA, et al., editors. Aliyah(R) [Internet]. [place] ([place]): [facility]; 1952-0912. Available from: https://www.ncbi.nlm.nih.gov/books/EWF6307/ Ariel S, Briana MCLAUGHLIN, Aakash X, Grady B, Vidal EB, Siobhan P, Anny CS; AC Laboratory Testing And Regulating Technician Committee. Venous thromboembolism laboratory testing (factor V Leiden and factor II c.*97G>A), 2018 update: a technical standard of the [employer] and [employer] (ACMG). Zoë Med. 2017;20(12):9578-0252. doi: 10.1038/v27619-397-5079-i. Epub 2017Nov 22. PMID: 17350575. Evon Negron, PhD, FAC Otis Guthrie, PhD, FACMG Rehan Goodson, PhD, FACMG Nick Bergeron, PhD, FACMG W Mona Pagan, PhD, FACMG Vee Mera, PhD, FACMG Gregoria Carrasco, PhD, FAC Performed at: - [facility] [id number] [employer] Intelligence Technician: Harshad Acosta PhD, Phone: [phone] Performed at: - [address] [id number] [employer] Intelligence Technician: Veronica Ring MD, Phone: [phone] Performed at: [facility] [address] [place], [place] [id number] All Source Intelligence Technician: Becky Cabezas [facility], Phone: [phone] Serum or plasma high density lipoprotein (HDL) cholesterol measurementOrdered By: Janet Hamm on 08-15-2021 Cholesterol in HDL [Mass/Vol] 50 mg/dL 35-85 [facility] Comment on above: HDL CHOL ATP-III CLA SSIFICATION Cardiovascular Risk HDL > or equal to 60 mg/dL LOW HDL < 40 mg/dL HIGH Serum or plasma homocysteine measurement (moles/volume)Ordered By: Janet Hamm on 08-15-2021 Homocysteine [Moles/Vol] 12.8 umol/L 0.0-14.5 [facility] Serum or plasma total choles terol/high density lipoprotein (HDL) cholesterol mass ratOrdered By: Janet Hamm on 08-15-2021 Cholesterol.total/Chol esterol in HDL [Mass ratio] 5.2 {ratio} <5.0 [facility] Triglyceride [Mass/volume] i n Serum or PlasmaOrdered By: Janet Hamm on 08-15-2021 Triglyceride [Mass/Vol] 164 mg/dL 35-149 [facility] Comment on above: TRIG ATP III CLASSIF ICATION TRIG less than 150 mg/dL Normal TRIG 150-199 mg/dL Borderline high TRIG 200-500 mg/dL High TRIG greater than 500 mg/dL Very high Standard traceable to the Center for Disease Conrtrol and Prevention (CDC) test method. Urine cocaine detectionOrder ed By: Alaina Arce on 08-15-2021 Cocaine Ql (U) Negative Negative [facility] Urine culture routineOrdered By: Alaina Arce on 08-15-2021 Bacteria identified Cx Nom (U) 2 Days [facility] aPTT.lupus sensitive (LA scr een)Ordered By: Janet Hamm on 08-15-2021 aPTT.lupus sensitive Coag (PPP) [Time] 35.2 sec 0.0-51.9 [facility] aPTT.lupus sensitive/aPTT.sheryl pus sensitive W excess phospholipid (screen to confirm raOrdered By: Janet Hamm on 08-15-2021 aPTT.lupus sensitive/aPTT.lupus sensitive W excess phospholipid Coag (PPP) [Ratio] 0.94 Ratio 0.00-1.34 [facility] Activated partial thrombopla stin time (aPTT) in platelet poor plasma by coagulation aOrdered By: Bong Bansal on 08-14-2021 aPTT Coag (PPP) [Time] 28.2 s 25.1-36.5 [facility] Bacterial blood cultureOrder ed By: Bong Bansal on 08-14-2021 Bacteria identified Cx Nom (Bld) NO GROWTH 5 DAYS [facility] Creatinine [Mass/volume] in UrineOrdered By: Alaina Arce on 08-14-2021 Creatinine (U) [Mass/Vol] 74.6 mg/dL [facility] Comment on above: No reference range e stablished Glucose Glucometer (BldC) [M ass/Vol]Ordered By: Alaina Arce on 08-14-2021 Glucose [Mass/Vol] 102 mg/dL [facility] Comment on above: Random Glucose Refer ence Range is dependent on time and content of last meal. Glucose of more than 200 mg/dL in a nonstressed, ambulatory subject supports the diagnosis of Diabetes Mellitus. Glucose mean value [Mass/vol ume] in Blood Estimated from glycated hemoglobinOrdered By: Janet Hamm on 08-14-2021 Average glucose Estimated from glycated hemoglobin (Bld) [Mass/Vol] 126 mg/dL [facility] Hemoglobin A1c percentageOrd ered By: Janet Hamm on 08-14-2021 HbA1c (Bld) [Mass fraction] 6.0 % 4.3-5.6 [facility] Comment on above: Increased risk for d iabetes: 5.7 - 6.4 diabetes: >6.4 glycemic control for adults with diabetes: <7.0 Laboratory - Chemistry and C hemistry - challengeOrdered By: Alaina Arce on 08-14-2021 Magnesium [Mass/Vol] 2.3 mg/dL 1.6-2.6 [facility] Laboratory - CoagulationOrde red By: Bong Bansal on 08-14-2021 PT Coag (PPP) [Time] 11.8 s 9.0-12.9 [facility] Platelet poor plasma interna tional normalized ratio (INR) by coagulation assay (relatOrdered By: Bong Bansal on 06-27-2022 INR Coag (PPP) [Relative time] 1.1 {INR} [facility] Comment on above: INR Therapeutic Rang e [...] 08-14-2021 Protein (U) [Mass/Vol] 100 mg/dL 0-9 [facility] Renin activityOrdered By: Emma Arce on 08-14-2021 Renin (P) [Catalytic activity/Vol] 27.141 ng/mL/hr 0.167-5.38 0 [facility] Comment on above: This test was develo ped and its performance characteristics determined by [employer]. It has not been cleared or approved by the Food and Drug Administration. Performed at: [facility] [address] [id number] [employer] Technician: Veronica Ring MD, Phone: [phone] Serum or plasma aldosterone measurement (mass/volume)Ordered By: Alaina Arce on 08-14-2021 Aldosterone [Mass/Vol] 7.8 ng/dL 0.0-30.0 [facility] Comment on above: This test was develo ped and its performance characteristics determined by [employer]. It has not been cleared or approved by the Food and Drug Administration. Performed at: [facility] [address] [id number] [employer] Technician: Veronica Ring MD, Phone: [phone] Urine protein/creatinine rat ioOrdered By: Alaina Arce on 08-14-2021 Protein/Creatinine (U) [Ratio] 1340 mg/g{Cre} 0-200 [facility] Urine sodium measurement (mo les/volume)Ordered By: Alaina Arce on 08-14-2021 Sodium (U) [Moles/Vol] 54.0 mmol/L [facility] Comment on above: No reference range e stablished AMYLASEon 08-13-2021 Amylase [Catalytic activity/Vol] 80 U/L Normal 25-115 [facility] Comment on above: Performed By: #### A MY, CMP, LIPA #### [facility] [address] [address] [address] oMreno Amato Automated erythrocytes count in urine sediment (number/area)Ordered By: Alaina Arce on 08-13-2021 RBC Auto (Urine sed) [#/Area] 5-9 [HPF] 0-4 [facility] Automated leukocytes count i n urine sediment (number/area)Ordered By: Alaina Arce on 08-13-2021 WBC Auto (Urine sed) [#/Area] 20-49 [HPF] 0-4 [facility] Bilirubin Test strip Ql (U)O rdered By: Alaina Arce on 08-13-2021 Bilirubin Ql (U) Negative Negative [facility] CBC AUTO DIFFon 08-13-2021 BASO # 0.1 103/ul Normal 0.0-0.1 [facility] Comment on above: Performed By: #### C BC #### [facility] [address] [address] [address] Moreno Amato Basophils/100 WBC (Bld) 0.6 % Normal 0.2-2.0 [facility] Comment on above: Performed By: #### C BC #### [facility] [address] [address] [address] Moreno Amato EO # 0.1 103/ul Normal 0.0-0.7 [facility] Comment on above: Performed By: #### C BC #### [facility] [address] [address] [address] Moreno Amato Eosinophils/100 WBC (Bld) 0.6 % Critically low 0.9-7.0 [facility] Comment on above: Performed By: #### C BC #### [facility] [address] [place] [address] Dr. Moreno Amato Erythrocyte distribution width (RBC) [Ratio] 11.9 % Normal 11.0-15.0 [facility] Comment on above: Performed By: #### C BC #### [facility] [address] [address] [address] Moreno Amato Hematocrit (Bld) [Volume fraction] 51.0 % Critically high 36.0-48.0 [facility] Comment on above: Performed By: #### C BC #### [facility] [address] [address] [address] Moreno Amtao Hemoglobin (Bld) [Mass/Vol] 18.2 g/dL Critically high 12.0-16.0 [facility] Comment on above: Performed By: #### C BC #### [facility] [address] [place] [address] Dr. Moreno Amato IG # 0.04 10e3/ul Critically high 0.00-0.03 [facility] Comment on above: Performed By: #### C BC #### [facility] [address] [place] [address] Dr. Moreno Amato IG % 0.3 % Normal 0.0-0.5 [facility] Comment on above: Performed By: #### C BC #### [facility] [address] [address] [address] Moreno Amato LYMPH # 2.2 103/ul Normal 1.2-3.8 [facility] Comment on above: Performed By: #### C BC #### [facility] [address] [address] [address] Moreno Amato Lymphocytes/100 WBC (Bld) 17.1 % Critically low 20.5-60.0 [facility] Comment on above: Performed By: #### C BC #### [facility] [address] [address] [address] Moreno Amato MANUAL DIFF REQ NO Normal [facility] Comment on above: Performed By: #### C BC #### [facility] [address] [place] [address] Dr. Moreno Amato MCH (RBC) [Entitic mass] 30.4 pg Normal 26.7-34.0 [facility] Comment on above: Performed By: #### C BC #### [facility] [address] [address] [address] Moreno Amato MCHC (RBC) [Mass/Vol] 35.7 g/dL Critically high 29.9-35.2 [facility] Comment on above: Performed By: #### C BC #### [facility] [address] [address] [address] Moreno Amato MCV (RBC) [Entitic vol] 85.1 fL Normal 81.0-99.0 [facility] Comment on above: Performed By: #### C BC #### [facility] [address] [address] [address] Moreno Amato MONO # 1.3 103/ul Critically high 0.3-0.8 [facility] Comment on above: Performed By: #### C BC #### [facility] [address] [place] [address] Dr. Moreno Amato Monocytes/100 WBC (Bld) 10.0 % Normal 1.7-12.0 [facility] Comment on above: Performed By: #### C BC #### [facility] [address] [address] [address] Moreno Amato NEUT # 9.3 103/ul Critically high 1.4-6.5 [facility] Comment on above: Performed By: #### C BC #### [facility] [address] [address] [address] Moreno Amato Neutrophils/100 WBC (Bld) 71.4 % Normal 43.0-75.0 [facility] Comment on above: Performed By: #### C BC #### [facility] [address] [address] [address] Moreno Amato Platelet mean volume (Bld) [Entitic vol] 9.8 fL Normal 9.5-13.5 [facility] Comment on above: Performed By: #### C BC #### [facility] [address] [place] [address] Dr. Moreno Amato PLT 242 103/ul Normal 150-450 [facility] Comment on above: Performed By: #### C BC #### [facility] [address] [place], [place] [address] Dr. Moreno Amato RBC 5.99 106/ul Critically high 4.20-5.40 [facility] Comment on above: Performed By: #### C BC #### [facility] [address] [place], [place] [address] Dr. Moreno Amato WBC 13.0 103/ul Critically high 4.0-11.0 [facility] Comment on above: Performed By: #### C BC #### [facility] [address] [place], [place] [address] ABD/PELVIS WO CONon [...] Vinay MANN Date: 2021-08-13 03:36 Normal [facility] CT STROKE HEAD WOon 08-14-19 22 [...] MAVIS ROSSI Date: 2021-08-13 07:39 Normal [facility] CULTURE URINEon 08-13-2021 CULTURE URINE Culture Observations : LIGHT GROWTH OF MIXED GENITAL ZOE. NO POTENTIAL PATHOGENS SEEN. Normal [facility] Comment on above: Performed By: #### A MY, CMP, LIPA #### [facility] [address] [place] [address] Dr. Moreno Amato Color Auto (U)Ordered By: Emma Arce on 08-13-2021 Color (U) Yellow Yellow [facility] Covid-19 PCR (CVDTBH)on 07-20 SARS-CoV-2 (COVID-19) RNA ELISA+probe Ql (Unsp spec) Not detected Normal NOT DETECTED [facility] Comment on above: Result Comment: When [...] for this test is supported by the Head Packager of Health and Human Service's declaration that [...] used). Performed By: #### C VDTB #### [facility] [address] [place] [address] Dr. Moreno Amato ER URINE PROFILEon 2 Bilirubin Ql (U) Negative Normal NEGATIVE [facility] Comment on above: Performed By: #### E ANNR UMICRO #### [facility] [address] [place] [address] Dr. Moreno Amato Clarity (U) CLEAR Normal CLEAR [facility] Comment on above: Performed By: #### Rupal ALAN UMICRO #### [facility] [address] [place] [address] Dr. Moreno Amato Color (U) LT. YELLOW Normal YELLOW [facility] Comment on above: Performed By: #### Rupal ALAN UMICRO #### [facility] [address] [place] [address] Dr. Moreno Amato ERUGIANCARLOD A micrscopic examina tion will be performed if indicated. Normal [facility] Comment on above: Performed By: #### Rupal JUAREZR UMICRO #### [facility] [address] [place] [address] Dr. Moreno Amato Glucose Ql (U) Negative Normal NEGATIVE [facility] Comment on above: Performed By: #### E RUR, UMICRO #### [facility] [address] [place] [address] Dr. Moreno Amato Hemoglobin Ql (U) MODERATE Abnormal NEGATIVE [facility] Comment on above: Performed By: #### E RUR, UMICRO #### [facility] [address] [place] [address] Dr. Moreno Amato Ketones Ql (U) Negative Normal NEGATIVE [facility] Comment on above: Performed By: #### E RUR, UMICRO #### [facility] [address] [place] [address] Dr. Moreno Amato LEUKOCYTES SMALL Abnormal NEGATIVE [facility] Comment on above: Performed By: #### SULAIMAN FRANCISCORO #### [facility] [address] [place] [address] Dr. Moreno Amato Nitrite Ql (U) Positive Abnormal NEGATIVE [facility] Comment on above: Performed By: #### NAOMI FRANCISCO #### [facility] [address] [place] [address] Dr. Moreno Amato pH (U) 6.0 [pH] Normal 5-9 [facility] Comment on above: Performed By: #### NAOMI FRANCISCO #### [facility] [address] [place] [address] Dr. Moreno Amato SPEC GRAVITY 1.020 Normal 1.005-<=1. 025 [facility] Comment on above: Performed By: #### NAOMI FRANCISCO #### [facility] [address] [place] [address] Dr. Moreno Amato UA PROTEIN >300 Abnormal NEGATIVE/ TRACE [facility] Comment on above: Performed By: #### NAOMI FRANCISCO #### [facility] [address] [place] [address] Dr. Moreno Amato UR MICRO IND INDICATED Normal [facility] Comment on above: Performed By: #### NAOMI FRANCISCO #### [facility] [address] [place] [address] Dr. Moreno Amato Urobilinogen Qn (U) 0.2 {[place]'U}/dL Normal 0.2 - 1. 0 [facility] Comment on above: Performed By: #### NAOMI FRANCISCO #### [facility] [address] [place] [address] Dr. Moreno Amato Ketones Auto test strip (U) [Mass/Vol]Ordered By: Alaina Arce on 08-13-2021 Ketones (U) [Mass/Vol] Negative Negative [facility] LACTATE/LACTIC ACIDon 2021 Lactate [Moles/Vol] 1.1 mmol/L Normal 0.4-1.9 [facility] Comment on above: Performed By: #### A MY, CMP, LIPA #### [facility] [address] [address] [address] Moreno Amato LIPASEon 08-13-2021 Lipase [Catalytic activity/Vol] 524.0 U/L Critically high 73.0-393.0 [facility] Comment on above: Performed By: #### A MY, CMP, LIPA #### [facility] [address] [address] [address] Moreno Amato Laboratory - Chemistry and C hemistry - challengeOrdered By: Alaina Arce on 08-13-2021 Lactate [Moles/Vol] 1.6 mmol/L 0.5-2.2 [facility] - UrinalysisOrder ed By: Alaina Arce on 08-13-2021 Hyaline casts LM Ql (Urine sed) 9-19 [LPF] 0-8 [facility] Nitrite Test strip Ql (U)Ord ered By: Alaina Arce on 08-13-2021 Nitrite Ql (U) Positive Negative [facility] POINT OF CARE GLUCOSEon 07-20 Glucose [Mass/Vol] 129 mg/dL Critically high 74-106 [facility] Comment on above: Performed By: #### A MY, CMP, LIPA #### [facility] [address] [address] [address] Moreno Amato PROF 14(COMP METB)on 022 Albumin [Mass/Vol] 3.4 g/dL Normal 3.4-5.0 [facility] Comment on above: Performed By: #### A MY, CMP, LIPA #### [facility] [address] [address] [address] Moreno Amato Albumin/Globulin [Mass ratio] 0.8 {ratio} Normal [facility] Comment on above: Performed By: #### A MY, CMP, LIPA #### [facility] [address] [address] [address] Moreno Amato ALP [Catalytic activity/Vol] 105 U/L Normal 46-116 [facility] Comment on above: Performed By: #### A MY, CMP, LIPA #### [facility] [address] [address] [address] Moreno Amato ALT [Catalytic activity/Vol] 22 U/L Normal 14-59 [facility] Comment on above: Performed By: #### A MY, CMP, LIPA #### [facility] [address] [address] [address] Moreno Amato Anion gap [Moles/Vol] 11.6 mmol/L Normal [facility] Comment on above: Performed By: #### A MY, CMP, LIPA #### [facility] [address] [address] [address] Moreno Amato AST [Catalytic activity/Vol] 22 U/L Normal 15-37 [facility] Comment on above: Performed By: #### A MY, CMP, LIPA #### [facility] [address] [address] [address] Moreno Amato Bilirubin [Mass/Vol] 0.7 mg/dL Normal 0.2-1.0 [facility] Comment on above: Performed By: #### A MY, CMP, LIPA #### [facility] [address] [address] [address] Moreno Amato Calcium [Mass/Vol] 9.6 mg/dL Normal 8.5-10.1 [facility] Comment on above: Performed By: #### A MY, CMP, LIPA #### [facility] [address] [address] [address] Moreno Amato Chloride [Moles/Vol] 97 mmol/L Critically low 98-107 [facility] Comment on above: Performed By: #### A MY, CMP, LIPA #### [facility] [address] [address] [address] Moreno Amato CO2 [Moles/Vol] 31.2 mmol/L Normal 21.0-32.0 [facility] Comment on above: Performed By: #### A MY, CMP, LIPA #### [facility] [address] [address] [address] Moreno mAato Creatinine [Mass/Vol] 1.64 mg/dL Critically high 0.55-1.02 [facility] Comment on above: Performed By: #### A MY, CMP, LIPA #### [facility] [address] [place] [address] Dr. Moreno Amato EGFR-AF MAURITANIAN 39 mL/min/1.73m2 Critically low >=60 [facility] Comment on above: Performed By: #### A MY, CMP, LIPA #### [facility] [address] [place] [address] Dr. Moreno Amato EGFR-NON AF MAURITANIAN 32 mL/min/1.73m2 Critically low >=60 [facility] Comment on above: Performed By: #### A MY, CMP, LIPA #### [facility] [address] [place] [address] Dr. Moreon Amato Globulin (S) [Mass/Vol] 4.1 g/dL Normal [facility] Comment on above: Performed By: #### A MY, CMP, LIPA #### [facility] [address] [place] [address] Dr. Moreno Amato Glucose [Mass/Vol] 110 mg/dL Critically high 74-106 [facility] Comment on above: Performed By: #### A MY, CMP, LIPA #### [facility] [address] [place] [address] Dr. Moreno Amato Potassium [Moles/Vol] 2.8 mmol/L Critically low 3.5-5.1 [facility] Comment on above: Performed By: #### A MY, CMP, LIPA #### [facility] [address] [place] [address] Dr. Moreno Amato Protein [Mass/Vol] 7.5 g/dL Normal 6.4-8.2 [facility] Comment on above: Performed By: #### A MY, CMP, LIPA #### [facility] [address] [place] [address] Dr. Moreno Amato Sodium [Moles/Vol] 137 mmol/L Normal 136-145 [facility] Comment on above: Performed By: #### A TOMMY CMP, LIPA #### [facility] [address] [address] [address] Moreno Amato Urea nitrogen [Mass/Vol] 26.0 mg/dL Critically high 7.0-18.0 [facility] Comment on above: Performed By: #### A TOMMY CMP, LIPA #### [facility] [address] [address] [address] Moreno Amato Urea nitrogen/Creatinine [Mass ratio] 15.9 mg/mg Normal [facility] Comment on above: Performed By: #### A ERIKA SANDERS, LIPA #### [facility] [address] [address] [address] Moreno Amato Protein Auto test strip (U) [Mass/Vol]Ordered By: Alaina Arce on 08-13-2021 Protein (U) [Mass/Vol] mg/dL Negative [facility] Specific gravity Auto test s trip (U) [Rel density]Ordered By: Alaina Arce on 08-13-2021 Specific gravity (U) [Rel density] 1.017 1.001-1.03 0 [facility] Squamous epithelial cells de tection in urine sediment by light microscopyOrdered By: Alaina Arce on 08-13-2021 Epithelial cells.squamous LM Ql (Urine sed) 3-4 [HPF] 0-2 [facility] TROPONIN, HIGH SENSITIVITYon 08-13-2021 HSTROP 91.0 pg/mL Critically high 4.0-51.3 [facility] Comment on above: Result Comment: CUT- OFF POINTS HAVE BEEN ESTABLISHED BASED ON THE FOURTH UNIVERSAL DEFINITIONS OF MYOCARDIAL INFARCTION. THE UPPER REFERENCE LIMIT (URL) OF TROPONIN, DEFINED THE 99TH PERCENTILE OF cTnI DISTRIBUTION IN A REFERENCE POPULATION, HAS BEEN CONFIRMED THE DECISION THRESHOLD FOR TX DIAGNOSIS. Performed By: #### A TOMMY CMP, LIPA #### [facility] [address] [address] [address] Moreno Amato HSTROP 109.0 pg/mL Critically high 4.0-51.3 [facility] Comment on above: Result Comment: CUT- OFF POINTS HAVE BEEN ESTABLISHED BASED ON THE FOURTH UNIVERSAL DEFINITIONS OF MYOCARDIAL INFARCTION. THE UPPER REFERENCE LIMIT (URL) OF TROPONIN, DEFINED THE 99TH PERCENTILE OF cTnI DISTRIBUTION IN A REFERENCE POPULATION, HAS BEEN CONFIRMED THE DECISION THRESHOLD FOR TX DIAGNOSIS. Performed By: #### H STROPN #### [facility] [address] [place] [address] Dr. Moreno Amato Troponin I.cardiac [Mass/vol ume] in Serum or Plasma by High sensitivity methodOrdered By: Alaina Arce on 08-13-2021 Troponin I.cardiac High sensitivity method [Mass/Vol] 50 pg/mL 0-15 [facility] Comment on above: Critical value result called at 1736 on 08/13/21 URINE MICROSCOPIC ONLYon BACTERIA SMALL Abnormal NONE SEEN [facility] Comment on above: Performed By: #### Rupal ALAN UMICRO #### [facility] [address] [place] [address] Dr. Moreno Amato Bacteria identified Cx Nom (U) INDICATED Normal [facility] Comment on above: Performed By: #### E DAYANNA UMICRO #### [facility] [address] [place] [address] Dr. Moreno Amato CAST SEEN Abnormal NONE SEEN [facility] Comment on above: Performed By: #### E DAYANNA UMICRO #### [facility] [address] [place] [address] Dr. Moreno Amato Crystals LM Nom (Urine sed) NONE SEEN Normal NONE SEEN [facility] Comment on above: Performed By: #### E RUR UMICRO #### [facility] [address] [place] [address] Dr. Moreno Amato Epithelial cells LM Ql (Urine sed) FEW Abnormal NONE SEEN /RARE [facility] Comment on above: Performed By: #### E RUR, UMICRO #### [facility] [address] [place] [address] Dr. Moreno Amato HYALINE CAST FEW Normal [facility] Comment on above: Performed By: #### E DAYANNA UMICRO #### [facility] [address] [address] [address] Moreno Amato MUCOUS NONE SEEN Normal NONE SEEN [facility] Comment on above: Performed By: #### NAOMI FRANCISCO #### [facility] [address] [address] [address] Moreno Amato RBC 2-5 Abnormal 0-2 [facility] Comment on above: Performed By: #### NAOMI FRANCISCO #### [facility] [address] [address] [address] Moreno Amato WBC 20-50 Abnormal NONE SEEN [facility] Comment on above: Performed By: #### NAOMI FRANCISCO #### [facility] [address] [address] [address] Moreno Amato Urine bacteria detection by automated methodOrdered By: Alaina Arce on 08-13-2021 Bacteria Auto Ql (U) None seen None Seen [facility] Urine clarity by refractomet ry automatedOrdered By: Alaina Arce on 08-13-2021 Clarity Refractometry automated (U) Cloudy Clear [facility] Urine culture routineOrdered By: Alaina Arce on 08-13-2021 Bacteria identified Cx Nom (U) 2 Days [facility] Urine glucose measurement by automated test strip (mass/volume)Ordered By: Alaina Arce on 08-13-2021 Glucose Auto test strip (U) [Mass/Vol] Normal mg/dL Normal [facility] Urine hemoglobin detection b y automated test stripOrdered By: Alaina Arce on 08-13-2021 Hemoglobin Auto test strip Ql (U) 1+ Negative [facility] Urine leukocyte esterase det ection by automated test stripOrdered By: Alaina Arce on 08-13-2021 Leukocyte esterase Auto test strip Ql (U) 1+ Negative [facility] Urobilinogen Auto test strip (U) [Mass/Vol]Ordered By: Alaina Arce on 08-13-2021 Urobilinogen (U) [Mass/Vol] Normal mg/dL Normal [facility] XR CHEST 1 Von 08-13-2021 XR CHEST [...] Vinay MANN Date: 2021-08-13 06:28 Normal [facility] pH Auto test strip (U)Ordere d By: Alaina Arce on 08-13-2021 pH (U) 5.5 [pH] 5.0-9.0 [facility] [place] DIGITAL SCREEN SELF REFERRAL W OR WO CAD BILATERALon 12-16-2020 [facility] [place] DIGITAL SCREEN SELF REFERRAL W [...] to the patient regarding the results. [employer] recommends annual mammograms for women 40 years and older. Interpreted by: Uvaldo Read Signed by: Uvaldo Read 12/16/20 Final result Normal [facility] Vital Signs Date Time Vital Sign Value Performing Clinician Facility 01-01-2024 14:45-0500 Blood Pressure Location Dereck GROVES [facility] 01-01-2024 14:45-0500 Diastolic blood pressure 90 mm[Hg] Dereck GROVES [facility] 01-01-2024 14:45-0500 Heart rate 68 /min Dereck GROVES [facility] 01-01-2024 14:45-0500 Respiratory rate 16 /min Dereck GROVES [facility] 01-01-2024 14:45-0500 Systolic blood pressure 130 mm[Hg] Dereck GROVES [facility] 11-29-2023 13:00-0400 Diastolic blood pressure 80 mm[Hg] [facility] 11-29-2023 13:00-0400 Heart rate 68 /min [facility] 11-29-2023 13:00-0400 Mean blood pressure 92 mm[Hg] [facility] 11-29-2023 13:00-0400 Respiratory rate 16 /min [facility] 11-29-2023 13:00-0400 SaO2% (BldA) [Mass fraction] 98 % [facility] 11-29-2023 13:00-0400 Systolic blood pressure 116 mm[Hg] [facility] 11-29-2023 12:00-0400 Heart rate 71 /min [facility] 11-29-2023 12:00-0400 Respiratory rate 20 /min [facility] 11-29-2023 12:00-0400 SaO2% (BldA) [Mass fraction] 97 % [facility] 11-29-2023 12:00-0400 Systolic blood pressure 136 mm[Hg] [facility] 11-29-2023 11:53-0400 Body temperature 97.7 [degF] [facility] 11-29-2023 11:53-0400 Diastolic blood pressure 89 mm[Hg] [facility] 11-29-2023 11:53-0400 Heart rate 70 /min [facility] 11-29-2023 11:53-0400 Respiratory rate 18 /min [facility] 11-29-2023 11:53-0400 SaO2% (BldA) [Mass fraction] 96 % [facility] 11-29-2023 11:53-0400 Systolic blood pressure 149 mm[Hg] [facility] 02-14-2023 09:56-0500 Inhaled oxygen flow rate 1 L/min MD Shaikh Thompson Work Phone: [facility] 02-14-2023 08:00-0500 Body temperature 97.7 [degF] MD Shaikh Thompson Work Phone: [facility] 02-14-2023 08:00-0500 Diastolic blood pressure 69 mm[Hg] MD Shaikh Thompson Work Phone: [facility] 02-14-2023 08:00-0500 Heart rate 78 /min MD Shaikh Thompson Work Phone: [facility] 02-14-2023 08:00-0500 Respiratory rate 20 /min MD Shaikh Thompson Work Phone: [facility] 02-14-2023 08:00-0500 SaO2% (BldA) [Mass fraction] 95 % MD Shaikh Thompson Work Phone: [facility] 02-14-2023 08:00-0500 Systolic blood pressure 118 mm[Hg] MD Shaikh Thompson Work Phone: [facility] 02-14-2023 05:51-0500 Body weight 69.9 kg MD Shaikh Thompson Work Phone: [facility] 02-13-2023 12:53-0500 Body height 157.48 cm MD Shaikh Thompson Work Phone: [facility] 02-10-2023 17:00-0500 Heart rate 85 /min [facility] 02-10-2023 16:38-0500 Diastolic blood pressure 80 mm[Hg] [facility] 02-10-2023 16:38-0500 Heart rate 80 /min [facility] 02-10-2023 16:38-0500 Mean blood pressure 99 mm[Hg] [facility] 02-10-2023 16:38-0500 Respiratory rate 18 /min [facility] 02-10-2023 16:38-0500 SaO2% (BldA) [Mass fraction] 95 % [facility] 02-10-2023 16:38-0500 Systolic blood pressure 138 mm[Hg] [facility] 02-10-2023 15:40-0500 Diastolic blood pressure 92 mm[Hg] [facility] 02-10-2023 15:40-0500 Heart rate 90 /min [facility] 02-10-2023 15:40-0500 Mean blood pressure 105 mm[Hg] [facility] 02-10-2023 15:40-0500 Respiratory rate 20 /min [facility] 02-10-2023 15:40-0500 SaO2% (BldA) [Mass fraction] 94 % [facility] 02-10-2023 15:40-0500 Systolic blood pressure 132 mm[Hg] [facility] 02-10-2023 14:42-0500 Body temperature 98.24 [degF] [facility] 02-10-2023 14:42-0500 Heart rate 93 /min [facility] 02-10-2023 14:42-0500 Respiratory rate 24 /min [facility] 02-10-2023 14:00-0500 Blood Pressure Location Jaxson Johnson [facility] 02-10-2023 14:00-0500 Body temperature 96.8 [degF] Jaxson Johnson [facility] 02-10-2023 14:00-0500 Diastolic blood pressure 90 mm[Hg] Jaxson Johnson [facility] 02-10-2023 14:00-0500 Heart rate 88 /min Jaxson Johnson [facility] 02-10-2023 14:00-0500 SaO2% (BldA) [Mass fraction] 92 % Jaxson Johnson [facility] 02-10-2023 14:00-0500 Systolic blood pressure 140 mm[Hg] Jaxson Johnson [facility] 10-15-2022 17:36-0400 Blood Pressure Location Damion Cheek [facility] 10-15-2022 17:36-0400 Body temperature 97.34 [degF] Damion Cheek [facility] 10-15-2022 17:36-0400 Diastolic blood pressure 76 mm[Hg] Damion Cheek [facility] 10-15-2022 17:36-0400 Heart rate 60 /min Damion Cheek [facility] 10-15-2022 17:36-0400 SaO2% (BldA) [Mass fraction] 96 % Damion Cheek [facility] 10-15-2022 17:36-0400 Systolic blood pressure 122 mm[Hg] Damion Cheek [facility] 10-09-2022 14:24-0400 Body height 157.5 cm Gurmeet Ojeda MD Work Phone: [facility] 10-09-2022 14:24-0400 Body temperature 97.5 [degF] Gurmeet Ojeda MD Work Phone: [facility] 10-09-2022 14:24-0400 Body weight 71.26 kg Gurmeet Ojeda MD Work Phone: [facility] 10-09-2022 14:24-0400 Diastolic blood pressure 60 mm[Hg] Gurmeet Ojeda MD Work Phone: [facility] 10-09-2022 14:24-0400 Heart rate 60 /min Gurmeet Ojeda MD Work Phone: [facility] 10-09-2022 14:24-0400 Systolic blood pressure 91 mm[Hg] Gurmeet Ojeda MD Work Phone: [facility] 08-09-2022 14:56-0400 Body height 157.5 cm Gurmeet Ojeda MD Work Phone: [facility] 08-09-2022 14:56-0400 Body temperature 97.7 [degF] Gurmeet Ojeda MD Work Phone: [facility] 08-09-2022 14:56-0400 Body weight 72.53 kg Gurmeet Ojeda MD Work Phone: [facility] 08-09-2022 14:56-0400 Diastolic blood pressure 64 mm[Hg] Gurmeet Ojeda MD Work Phone: [facility] 08-09-2022 14:56-0400 Heart rate 65 /min Gurmeet Ojeda MD Work Phone: [facility] 08-09-2022 14:56-0400 Systolic blood pressure 98 mm[Hg] Gurmeet Ojeda MD Work Phone: [facility] 06-14-2022 12:57-0400 Blood Pressure Location Ayala SALAM [facility] 06-14-2022 12:57-0400 Diastolic blood pressure 74 mm[Hg] Ayala SALAM [facility] 06-14-2022 12:57-0400 Heart rate 80 /min Ayala SALAM [facility] 06-14-2022 12:57-0400 Respiratory rate 16 /min Ayala SALAM [facility] 06-14-2022 12:57-0400 Systolic blood pressure 118 mm[Hg] Ayala SALAM [facility] 06-06-2022 10:13-0400 Blood Pressure Location TRUDY NGUYỄN [facility] 06-06-2022 10:13-0400 Diastolic blood pressure 88 mm[Hg] TRUDY NGUYỄN [facility] 06-06-2022 10:13-0400 Heart rate 74 /min TRUDY NGUYỄN [facility] 06-06-2022 10:13-0400 Systolic blood pressure 144 mm[Hg] TRUDY NGUYỄN [facility] 05-23-2022 10:41-0400 Blood Pressure Location TRUDY NGUYỄN [facility] 05-23-2022 10:41-0400 Diastolic blood pressure 85 mm[Hg] TRUDY NGUYỄN [facility] 05-23-2022 10:41-0400 Heart rate 72 /min TRUDY NGUYỄN [facility] 05-23-2022 10:41-0400 Systolic blood pressure 127 mm[Hg] TRUDY NGUYỄN [facility] 04-11-2022 11:01-0500 Blood Pressure Location TRUDY NGUYỄN [facility] 04-11-2022 11:01-0500 Diastolic blood pressure 88 mm[Hg] TRUDY NGUYỄN [facility] 04-11-2022 11:01-0500 Heart rate 71 /min TRUDY NGUYỄN [facility] 04-11-2022 11:01-0500 Systolic blood pressure 146 mm[Hg] TRUDY NGUYỄN [facility] 03-19-2022 16:35-0500 Body height 163.83 cm Padmini Sam Other [employer] Other 03-19-2022 16:35-0500 Body mass index (BMI) [Ratio] 27.37 kg/m2 Padmini Sam Other [employer] Other 03-19-2022 16:35-0500 Body temperature 98.9 [degF] Padmini Sam Other [employer] Other 03-19-2022 16:35-0500 Body weight 73.48 kg Padmini Sam Other [facility] [employer] Other 03-19-2022 16:35-0500 Respiratory rate 18 /min Padmini Sam Other [employer] [facility] [employer] Other 03-19-2022 16:35-0500 SaO2% (BldA) [Mass fraction] 96 % Padmini Sam Other [facility] [employer] Other 03-13-2022 10:12-0500 Diastolic blood pressure 59 mm[Hg] MD Shaikh Thompson Work Phone: [facility] 03-13-2022 10:12-0500 Heart rate 77 /min MD Shaikh Thompson Work Phone: [facility] 03-13-2022 10:12-0500 Respiratory rate 18 /min MD Shaikh Thompson Work Phone: [facility] 03-13-2022 10:12-0500 SaO2% (BldA) [Mass fraction] 98 % MD Shaikh Thompson Work Phone: [facility] 03-13-2022 10:12-0500 Systolic blood pressure 93 mm[Hg] MD Shaikh Thompson Work Phone: [facility] 03-13-2022 07:54-0500 Body height 162.56 cm MD Shaikh Thompson Work Phone: [facility] 03-13-2022 07:54-0500 Body temperature 98 [degF] MD Shaikh Thompson Work Phone: [facility] 03-13-2022 07:54-0500 Body weight 73.48 kg MD Shaikh Thompson Work Phone: [facility] 03-12-2022 08:58-0500 Body height 160.02 cm Shaikh Felywwad Work Phone: [facility] 250 DO Work Phone: 03-12-2022 08:58-0500 Body mass index (BMI) [Ratio] 28.7 kg/m2 Dunbar Fawwad Work Phone: [facility] 250 DO Work Phone: 03-12-2022 08:58-0500 Body surface area Derived from formula 1.77 m2 Shaikh Felywwad Work Phone: [facility] 250 DO Work Phone: 03-12-2022 08:58-0500 Body weight 73.48 kg Shaikh Felywwad Work Phone: [facility] 250 DO Work Phone: 03-12-2022 08:58-0500 Diastolic blood pressure 78 mm[Hg] Shaikh Felywwad Work Phone: [facility] 250 DO Work Phone: 03-12-2022 08:58-0500 Heart rate 66 /min Shaikh Felywwad Work Phone: [facility] 250 DO Work Phone: 03-12-2022 08:58-0500 Systolic blood pressure 110 mm[Hg] Dunbar Felywwad Work Phone: [facility] 250 DO Work Phone: 01-23-2022 12:00-0500 72 1 Dunbar Fawwad Work Phone: [facility] [address] [place] Work Phone: Comment on above: [id number] 11-09-2021 13:26-0400 Body height 160.02 cm Fawwad Work Phone: [facility] 600 DO Work Phone: 11-09-2021 13:26-0400 Body mass index (BMI) [Ratio] 27.83 kg/m2 Dunbar Fawwad Work Phone: [facility] [employer] 600 DO Work Phone: 11-09-2021 13:26-0400 Body surface area Derived from formula 1.75 m2 Fawwad Work Phone: [facility] [employer] 600 DO Work Phone: 11-09-2021 13:26-0400 Body weight 71.27 kg Shaikh Felywwad Work Phone: [facility] 600 DO Work Phone: 11-09-2021 13:26-0400 Diastolic blood pressure 82 mm[Hg] Dunbar Fawwad Work Phone: [facility] [employer] 600 DO Work Phone: 11-09-2021 13:26-0400 Heart rate 64 /min Fawwad Work Phone: [facility] [employer] 600 DO Work Phone: 11-09-2021 13:26-0400 Systolic blood pressure 128 mm[Hg] Dunbar Fawwad Work Phone: [facility] 600 DO Work Phone: 09-18-2021 10:26-0400 Diastolic blood pressure 80 mm[Hg] Dunbar Fawwad Work Phone: [facility] 250 DO Work Phone: 09-18-2021 10:26-0400 Systolic blood pressure 178 mm[Hg] Dunbar Fawwad Work Phone: [facility] 250 DO Work Phone: 09-18-2021 10:19-0400 Body height 162.56 cm Shaikh Leoneld Work Phone: [facility] 250 DO Work Phone: 09-18-2021 10:19-0400 Body mass index (BMI) [Ratio] 26.09 kg/m2 Shaikh Leoneld Work Phone: [facility] 250 DO Work Phone: 09-18-2021 10:19-0400 Body surface area Derived from formula 1.74 m2 Shaikh Leoneld Work Phone: [facility] 250 DO Work Phone: 09-18-2021 10:19-0400 Body weight 68.95 kg Shaikh Donna Work Phone: [facility] 250 DO Work Phone: 09-18-2021 10:19-0400 Diastolic blood pressure 80 mm[Hg] Shaikh Lewiswad Work Phone: [facility] 250 DO Work Phone: 09-18-2021 10:19-0400 Heart rate 60 /min Shaikh Leoneld Work Phone: [facility] 250 DO Work Phone: 09-18-2021 10:19-0400 Systolic blood pressure 180 mm[Hg] Shaikh Lewiswad Work Phone: [facility] 250 DO Work Phone: 08-23-2021 14:00-0400 Body temperature 98.9 [degF] Linn Missler Other [employer] Other 08-23-2021 14:00-0400 Body weight 66.13 kg Linn Missler Other [employer] Other 08-23-2021 14:00-0400 Diastolic blood pressure 87 mm[Hg] Linn Missler Other [employer] Other 08-23-2021 14:00-0400 Respiratory rate 18 /min Linn Missler Other [employer] Other 08-23-2021 14:00-0400 SaO2% (BldA) [Mass fraction] 96 % Linn Missler Other [employer] Other 08-23-2021 14:00-0400 Systolic blood pressure 137 mm[Hg] Linn Missler Other [employer] Other 08-17-2021 12:00-0400 Diastolic blood pressure 94 mm[Hg] PHYSICIAN NO [facility] 08-17-2021 12:00-0400 Heart rate 78 /min PHYSICIAN NO [facility] 08-17-2021 12:00-0400 Respiratory rate 18 /min PHYSICIAN NO [facility] 08-17-2021 12:00-0400 SaO2% (BldA) [Mass fraction] 95 % PHYSICIAN NO [facility] 08-17-2021 12:00-0400 Systolic blood pressure 152 mm[Hg] PHYSICIAN NO [facility] 08-17-2021 08:00-0400 Body temperature 97.5 [degF] PHYSICIAN NO [facility] 08-17-2021 05:57-0400 Body weight 75.8 kg PHYSICIAN NO [facility] 08-17-2021 00:44-0400 Inhaled oxygen flow rate 2 L/min PHYSICIAN NO [facility] 08-16-2021 14:43-0400 Body height 162.56 cm PHYSICIAN NO [facility] 08-16-2021 14:43-0400 Body mass index (BMI) [Ratio] 25.6 kg/m2 PHYSICIAN NO [facility] Encounters Encounter Date Encounter Type Care Provider Facility Start: 04-21-2024 End: 04-21-2024 ambulatory Dereck GROVES [place] Start: 04-21-2024 End: 04-21-2024 Patient encounter procedure Dereck GROVES [facility] Start: 01-09-2024 End: 03-10-2024 Pre-admission assessment Dereck GROVES [facility] Start: 01-09-2024 ambulatory Juany C Sammie Facility [facility] Start: 01-05-2024 End: 01-05-2024 ambulatory Juany C Sammie Facility[facility] Start: 01-05-2024 End: 01-05-2024 Patient encounter procedure Juany C Sammie [facility] Start: 01-02-2024 End: 03-04-2024 Pre-admission assessment Dereck GROVES [facility] Start: 01-01-2024 End: 01-01-2024 ambulatory Dereck GROVES Facility: [place] Start: 01-01-2024 End: 01-01-2024 Patient encounter procedure Dereck GROVES [facility] Start: 11-29-2023 End: 11-29-2023 Emergency department patient visit Gabby De Oliveira Facility[place] Start: 10-11-2023 End: 10-11-2023 Clinisync Result Encounter Shaikh Donna FINNEY Work Phone: [facility] Unsolicited Start: 10-11-2023 End: 10-11-2023 Clinisync Result Encounter Shaikh Donna FINNEY Work Phone: [facility] Unsolicited Start: 08-12-2023 End: 08-12-2023 ambulatory DUNBAR DONNA Not Available Start: 07-30-2023 End: 07-30-2023 ambulatory DONNA Not Available Start: 06-17-2023 End: 06-17-2023 ambulatory SHAIKH FELYSONIA Not Available Start: 06-04-2023 End: 06-04-2023 ambulatory ROSIE BLANCHARD Not Available Start: 06-03-2023 End: 06-03-2023 ambulatory TRUDY ADRIAN Facility:[facility] Start: 06-03-2023 End: 06-03-2023 Patient encounter procedure TRUDY ADRIAN [facility] Start: 05-17-2023 End: 05-17-2023 ambulatory ROSIE BLANCHARD Not Available Start: 05-13-2023 End: 05-13-2023 ambulatory DUNBAR FASONIA Not Available Start: 03-12-2023 End: 03-12-2023 ambulatory Marquez Beal Facility:[facility] Start: 03-12-2023 End: 03-12-2023 ambulatory MD Shaikh Thompson Work Phone: [facility] Work Phone: Start: 03-12-2023 End: 03-12-2023 Patient encounter procedure MD Shaikh Thompson Work Phone: [facility] [place] Work Phone: Start: 03-12-2023 End: 03-12-2023 ambulatory [facility] Start: 02-19-2023 End: 02-19-2023 ambulatory SHAIKH DONNA Not Available Start: 02-12-2023 End: 02-14-2023 Evaluation and management of inpatient Jacques East Facility:[facility] Start: 02-12-2023 End: 02-14-2023 Evaluation and management of inpatient MD Shaikh Thompson Work Phone: [facility] [place] [facility] Work Phone: Start: 02-10-2023 End: 02-10-2023 Lab Drop off Jaxson Johnson [facility] Start: 02-10-2023 End: 02-10-2023 Emergency department patient visit Gabby De Oliveira [facility] Start: 02-10-2023 End: 02-10-2023 Patient encounter procedure Jaxson Johnson [facility] Start: 01-30-2023 End: 01-30-2023 Patient encounter procedure TRUDY ADRIAN [facility] Start: 10-29-2022 Orders Only Debra naik [...] End: 10-15-2022 Lab Drop off Damion Cheek [facility] Start: 10-15-2022 End: 10-15-2022 Patient encounter procedure Damion Cheek [facility] Start: 10-15-2022 Rx Renewal Shaikh Donna Work Phone: [facility] 600 DO Work Phone: Start: 10-09-2022 End: 10-10-2022 ambulatory Rosie Harris DO Work Phone: [facility] Start: 10-09-2022 End: 10-09-2022 Patient encounter procedure Gurmeet Ojeda MD Work Phone: [facility] Comment on above: Stage 3 chronic kidn ey disease, unspecified whether stage 3a or 3b CKD (HCC) (Primary Dx); Tobacco abuse; Hypertension, renal disease; Mixed hyperlipidemia; Atrophic kidney, acquired Start: 08-23-2022 End: 08-24-2022 ambulatory DEBRA FISHMAN Facility:[facility] Start: 08-09-2022 End: 08-09-2022 Patient encounter procedure Gurmeet Ojeda MD Work Phone: [facility] Comment on above: Stage 3b chronic kid domingo disease (HCC) (Primary Dx); Hypertension, unspecified type; Orthostatic hypotension; Alkalosis; Hypercholesteremia Start: 08-09-2022 End: 08-10-2022 ambulatory Debra Fishman MD Work Phone: [facility] Start: 06-19-2022 ambulatory SHAIKH Enrique THOMPSON Facilit y:[facility] Start: 06-14-2022 End: 06-14-2022 Patient encounter procedure Jamie BILLS [facility] Start: 06-12-2022 End: 06-13-2022 ambulatory SHAIKH Enrique THOMPSON Facility:[facility] Start: 06-06-2022 End: 06-06-2022 Patient encounter procedure TRUDY ADRIAN [facility] Start: 05-23-2022 End: 05-23-2022 Patient encounter procedure TRUDY ADRIAN [facility] Start: 04-30-2022 End: 05-01-2022 ambulatory SHAIKH Enrique THOMPSON Facility:[facility] Start: 04-11-2022 End: 04-11-2022 Patient encounter procedure TRUDY ADRIAN [facility] Start: 04-05-2022 End: 04-05-2022 ambulatory Kevyn Sharma Other [employer] Other Start: 04-05-2022 Telephone encounter Kevyn castano [facility] [employer] Start: 03-27-2022 End: 03-28-[address] MARQUEZ BEAL Facility:[facility] Start: 03-19-2022 End: 03-19-2022 ambulatory Padmini Sam Other [employer] Other Start: 03-19-2022 Office outpatient vi sit 15 minutes Padmini Sam [facility] Start: 03-13-2022 End: 03-13-2022 Admission to same day surgery center MD Shaikh Thompson Work Phone: [facility] Work Phone: Start: 03-13-2022 End: 03-13-2022 ambulatory MD Shaikh Thompson Work Phone: [facility] Work Phone: Start: 03-12-2022 Office outpatient vi sit 25 minutes Shaikh Donna Work Phone: [facility] 250 DO Work Phone: Start: 02-26-2022 End: 02-26-[address] XAVIER STAFFORD . Facility:[facility] Start: 02-19-2022 End: 02-20-2022 ambulatory SHAIKH Enrique FAIselaWAD Facility:[facility] Start: 01-29-2022 Chart Update Fawwad Work Phone: [facility] 600 DO Work Phone: Start: 01-23-[address] Marquez Beal II Facility:[id number] Start: 01-23-2022 Patient encounter procedure Dunbar Fawwad Work Phone: [facility] 250 DO Work Phone: Start: 11-16-2021 Rx Renewal Fawwad Work Phone: [facility] 600 DO Work Phone: Start: 11-09-2021 ambulatory Marquez Beal II Facility: Start: 10-30-2021 End: 10-31-2021 ambulatory SHAIKH Enrique SAUCEDOWAD Facility:[facility] Start: 10-24-2021 Chart Update Shaikh Lewiswad Work Phone: [facility] 250 DO Work Phone: Start: 10-17-[address] Marquez Beal II Facility:[id number] Start: 09-18-2021 ambulatory Marquez Beal II Facility: Start: 09-18-2021 Office outpatient vi sit 25 minutes Dunbar Fawwad Work Phone: [facility] 250 DO Work Phone: Start: 09-18-2021 End: 09-18-2021 Patient encounter procedure PHYSICIAN AXEL [facility] [place] Start: 09-18-2021 ambulatory Marquez Beal II Faci lity:[id number] Start: 08-23-2021 ([facility] Start: 08-23-2021 End: 08-23-2021 ambulatory Linn Byrne Other [facility] [employer] Other Start: 08-23-2021 End: 08-23-2021 Patient encounter procedure PHYSICIAN NO [facility] Start: 08-17-2021 End: 08-17-2021 Patient encounter procedure PHYSICIAN NO [facility] Start: 08-17-2021 ambulatory Marquez Christ chakraborty Saúlhussein II Facility:[id number] Start: 08-16-[address] Jaycob joyner Newman Facility:[id number] Start: 08-15-2021 ambulatory Marquez Hayshussein II Facility:[id number] Start: 08-14-2021 ambulatory Marquez Hayshussein II Facility:[id number] Start: 08-13-2021 End: 08-17-2021 Evaluation and management of inpatient PHYSICIAN NO [facility] [place] [facility] Start: 08-13-2021 End: 08-13-2021 ambulatory Marquez Hayshussein II Facility:[id number] Start: 12-08-2020 End: 12-11-2020 ambulatory [facility] Start: 12-08-2020 End: 12-10-2020 Subsequent hospital visit by physician [facility] Comment on above: Encounter for [...] panel MARQUEZ RICKETTS Start: 02-20-2023 Mammography Shaikh Lewis austin MD Work Phone: Start: 02-12-2023 Investigation of tra nsfusion reaction MD Shaikh Thompson Work Phone: Start: 02-12-2023 Plain chest X-ray MD Sly Thompson Work Phone: Start: 10-09-2022 Urnls dip stick/tabl et reagent auto microscopy Bulk Order Provider Start: 08-09-2022 Urnls dip stick/tabl et rgnt auto w/o microscopy Bulk Order Provider Start: 03-13-2022 Colonoscopy MD Shaikh Thompson Work Phone: Start: 02-18-2022 Colonoscopy Shaikh Lewis austin MD Work Phone: Start: 11-20-2021 Microscopic [...] Screening for malign ant neoplasm of colon [facility] Start: 11-20-2024 Screening for malign ant neoplasm of cervix [facility] Start: 05-04-2024 ambulatory Ambulatory Facility:C [id number] Start: 02-21-2024 Screening for malign ant neoplasm of breast Mammogram [facility] Start: 11-20-2023 End: 11-20-2023 Patient encounter procedure 11/20/2023 5:30 PM EDT Office Visit [facility] [address] [place] [address] Sadaf Hill NP [address] [place] [address] [facility] Start: 10-20-2023 Influenza vaccination Influenza Vacc ine (#1) [facility] Start: 10-10-2023 End: 12-10-2023 Renal function 2000 panel - Serum or Plasma RENAL FUNCTION PANEL Lab Routine Stage 3 chronic kidney disease, unspecified whether stage 3a or 3b CKD (HCC) Expected: 10/10/2023, Expires: 12/10/2023 [facility] Work Phone: Comment on above: Expected: 10/10/2023 , Expires: 12/10/2023 Start: 08-24-2023 SERUM CREATININE SERUM CREATININE [facility] Start: 03-12-2023 FU, Provider: Marquez Beal, Status: Pen, Time: 11:00 AM FU, Provider: Marquez Beal, Status: Pen, Time: 11:00 AM [place] [address] DO Work Phone: Start: 02-14-2023 [facility] Start: 02-12-2023 Microbial culture of sputum [facility] Start: 02-12-2023 Aerobic microbial culture Aerobic Cu lture [facility] Start: 02-12-2023 Hospital admission [facility] Start: 02-12-2023 [facility] Start: 10-19-2022 Influenza vaccination [facility] Start: 08-09-2022 End: 10-09-2022 25-hydroxyvitamin D3 [Mass/volume] in Serum or Plasma VITAMIN D 25 HYDROXY Lab Routine Stage 3b chronic kidney disease (HCC) Expected: 08/09/2022, Expires: 10/09/2022 [facility] Work Phone: Comment on above: Expected: 08/09/2022 , Expires: 10/09/2022 Start: 08-09-2022 End: 10-09-2022 MONOCLONAL PROTEIN, SERUM (BLOOD) MONOCLONAL PROTEIN, SERUM (BLOOD) Lab Routine Stage 3b chronic kidney disease (HCC) Expected: 08/09/2022, Expires: 10/09/2022 [facility] Work Phone: Comment on above: Expected: 08/09/2022 , Expires: 10/09/2022 Start: 08-09-2022 End: 10-09-2022 Renal function 2000 panel - Serum or Plasma RENAL FUNCTION PANEL Lab Routine Stage 3b chronic kidney disease (HCC) Expected: 08/09/2022, Expires: 10/09/2022 [facility] Work Phone: Comment on above: Expected: 08/09/2022 , Expires: 10/09/2022 Start: 03-13-2022 [facility] Start: 03-12-2022 FUV, Provider: Marquez Beal, Status: Pen, Time: 8:30 AM FUV, Provider: Marquez Beal, Status: Pen, Time: 8:30 AM [facility] 250 DO Work Phone: Start: 02-18-2022 DEPRESSION ASSESSMENT DEPRESSION ASS ESSMENT [facility] Start: 12-21-2021 FUV, Provider: Marquez Beal, Status: Pen, Time: 12:50 PM FUV, Provider: Marquez Beal, Status: Pen, Time: 12:50 PM [facility] 600 DO Work Phone: Start: 12-08-2021 Mammography MAMMOGRAM [facility] Start: 11-22-2021 STRESS NUC, Provider : TRENA HHVI NUCLEAR 01,[id number], Status: Pen, Time: 12:00 PM STRESS NUC, Provider: TRENA HHVI NUCLEAR ,[id number], Status: Pen, Time: 12:[address] [facility] 600 DO Work Phone: Start: 11-22-2021 NURSEVST, Provider: KAYLEN ANAND SPECIAL EDUCATION RESOURCE TEACHER 1,[id number], Status: Pen, Time: 10:30 AM NURSEVST, Provider: KAYLEN ANAND SPECIAL EDUCATION RESOURCE TEACHER 1,[id number], Status: Pen, Time: 10:30 AM [facility] 600 [facility] Work Phone: Start: 11-09-2021 FUV, Provider: Marquez Beal, Status: Pen, Time: 1:10 PM FUV, Provider: Marquez Beal, Status: Pen, Time: 1:10 PM [facility] Work Phone: Start: 10-17-2021 STRESS IVAN, Provider : TRENA HHVI NUCLEAR 01,[id number], Status: Pen, Time: 2:00 PM STRESS IVAN, Provider: TRENA HHVI NUCLEAR 01,[id number], Status: Pen, Time: 2:00 PM [facility] Work Phone: Start: 08-17-2021 [facility] Work Phone: Start: 08-14-2021 Referral to neurologist [facility] Work Phone: Start: 08-14-2021 Blood culture for bacteria, including anaerobic screen Blood Culture [facility] Start: 08-14-2021 [facility] Work Phone: Start: 08-13-2021 Ultrasonography of R ight and Left Heart, Transesophageal Ultrasonography of Right and Left Heart, Transesophageal [facility] Start: 08-13-2021 Hospital admission [facility] Work Phone: Start: 08-13-2021 Referral to scraper meat [facility] Work Phone: Start: 03-27-2021 Colonoscopy COLONOSCOPY [facility] Start: 03-27-2021 COLORECTAL CANCER SCREENING COLORECTAL CANCER SCREENING [facility] Start: 03-11-2021 COVID-19 VACCINE (4 - Booster for Pfizer series) COVID-19 VACCINE (4 - Booster for Pfizer series) [facility] Start: 03-11-2021 COVID-19 VACCINE (4 - Pfizer series) COVID-19 VACCINE (4 - Pfizer series) [facility] Start: 02-07-2021 HPV TESTING HPV TESTING [facility] Start: 02-07-2021 PAP TESTING PAP TESTING [facility] Start: 10-19-2020 Influenza vaccination Flu vaccine (# 1) [employer] Phone: Start: 03-14-2017 HEMOGLOBIN/HEMATOCRIT HEMOGLOBIN/HEM ATOCRIT [facility] Start: 2012 Screening for malign ant neoplasm of breast Breast cancer screen [employer] Phone: Start: 2012 Shingles Vaccine (1 of 2) Herring gles Vaccine (1 of 2) [employer] Phone: Start: 2012 SHINGRIX VACCINE (1 of 2) HERRING GRIX VACCINE (1 of 2) [facility] Start: 05-12-2007 COLOGUARD (FIT-DNA) COLOGUARD (FIT-D NA) [facility] Start: 05-12-[address] COLONOGRAPHY [facility] Start: 05-12-2007 DIABETES SCREEN DIABETES SCREEN [facility] Start: 05-12-2007 FECAL OCCULT BLOOD FECAL OCCULT BLOO D [facility] Start: 05-12-2007 LIPID SCREEN LIPID SCREEN [facility] Start: 05-12-2007 Screening for malign ant neoplasm of colon Colon cancer screen colonoscopy [facility] [employer] Phone: Start: 05-12-2007 SIGMOIDOSCOPY SIGMOIDOSCOPY [facility] Start: 2002 Lipid panel Lipid screen [employer] Phone: Start: 1992 Screening for malign ant neoplasm of cervix [facility] Start: 05-12-1983 Screening for malign ant neoplasm of cervix Pap smear [employer] Phone: Start: 1981 DTaP/Tdap/Td vaccine (1 - Tdap) DTaP/Tdap/Td vaccine (1 - Tdap) [employer] Phone: Start: 1981 Urine microalbumin profile DTAP,TDAP,TD (1 - Tdap) [facility] Start: 1980 ANNUAL PCP TEAM GAS FITTER APPRENTICE ZEFERINO DISEASE VISIT ANNUAL PCP TEAM CHRONIC DISEASE VISIT [facility] Start: 1980 HEPATITIS C SCREENING HEPATITIS C [facility] Start: 1980 HIV SCREENING HIV SCREENING [facility] Start: 1977 HIV screening HIV screen [facility] Work Phone: Start: 1962 Hepatitis C screening Hepatitis C [facility] Work Phone: Start: 1960 Screening for malign ant neoplasm of colon [facility] Activated protein C resistance assay [facility] Work Phone: Antithrombin [Units/volume] in Platelet poor plasma by Chromogenic method [facility] Work Phone: aPTT.lupus sensitive (LA screen) [facility] Work Phone: aPTT.lupus sensitive W excess phospholipid actual/Normal (normalized LA confirm) [facility] Work Phone: aPTT.lupus sensitive/aPTT.lupus sensitive W excess phospholipid (screen to confirm ra [facility] Work Phone: Beta 2 glycoprotein 1 IgG Ab [Units/volume] in Serum [facility] Work Phone: Beta 2 glycoprotein 1 IgM Ab [Units/volume] in Serum [facility] Work Phone: Cardiolipin IgG Ab [Units/volume] in Serum by Immunoassay [facility] Work Phone: Cardiolipin IgM Ab [Units/volume] in Serum by Immunoassay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 Alcohol and Drug Abuse Patient Records regulations: The Federal rules restrict any use of the information to criminally investigate or prosecute any alcohol or drug abuse patient.[facility] HospitalIn the event this information is protected by the Federal Confidentiality of Alcohol and Drug Abuse Patient Records regulations: The Federal rules restrict any use of the information to criminally investigate or prosecute any alcohol or drug abuse patient.[facility] HospitalIn the event this information is protected by the Federal Confidentiality of Alcohol and Drug Abuse Patient Records regulations: The Federal rules restrict any use of the information to criminally investigate or prosecute any alcohol or drug abuse patient.[facility] HospitalIn the event this information is protected by the Federal Confidentiality of Alcohol and Drug Abuse Patient Records regulations: The Federal rules restrict any use of the information to criminally investigate or prosecute any alcohol or drug abuse patient.[facility] HospitalIn the event this information is protected by the Federal Confidentiality of Alcohol and Drug Abuse Patient Records regulations: The Federal rules restrict any use of the information to criminally investigate or prosecute any alcohol or drug abuse patient.[facility] HospitalIn the event this information is protected by the Federal Confidentiality of Alcohol and Drug Abuse Patient Records regulations: The Federal rules restrict any use of the information to criminally investigate or prosecute any alcohol or drug abuse patient.[facility] FOR RECORDS PERTAINING TO PATIENTS WHO [...] BE BASED ON THE PRIMARY CLINICAL RECORDS. [facility] LVL[facility]. provides no warranty or guarantee of the accuracy or completeness of information in this document.
[2024-05-04] MEDS: LIDOCAINE 2% JELLY 10 ML UR (08:32)
[2024-05-04 08:35] VITALS: BP 111/77; BP 146/79; PULSE 66; PULSE 68; O2SAT 98; O2SAT 99
--- NOTE | 2024-05-04 08:50 | PM.URSON ---
Urology Surgery Operative Note Operative Note Procedure Date: 05/04/24 Time Out Performed: yes Pre-op Diagnosis: Recurrent UTIs and left flank pain Post-op Diagnosis: same as pre-op Procedures performed: 1. Cystoscopy. Anesthesia: local Primary Surgeon: Dereck He Complications: None Estimated blood loss (mL): 0 Findings: No bladder tumors. Moderate trabeculation. MARLON with Valsalva. Specimens: None Drains: None Indications for Procedures: This lady has had recurrent UTIs and intermittent left flank pain. Her VCUG revealed no evidence of reflux and is entirely negative. Her nuclear renal scan reveals 9% function on her left kidney and 91% on her right. She now presents for cystoscopy. She has signed an informed consent after all risks were explained. Detailed description of Procedure: The patient was kept on her gurney bed and brought into the endoscopy suite. She was in the supine position. Her legs were frog-legged and her perineum and genitalia were sterilely prepped and draped in the usual fashion. Timeout was done by all parties in the room. 2% lidocaine gel was passed per urethra. The flexible cystoscope was then passed per urethra and into the bladder. The urethra was unremarkable. Careful panendoscopy in the bladder revealed moderate trabeculation. There were no tumors noted. There were no lesions from chronic inflammatory changes noted. The scope was retroflexed and no new findings were noted. The scope was then removed. With Valsalva maneuvers she did leak a moderate amount of urine. Minimal cystocele was noted. We had a lengthy discussion about the possible need for left nephrectomy to help alleviate her recurrent infections and flank pain. For now, she will try to be compliant with our recommendation of using urine test strips weekly. She will call if she gets another UTI. Follow-up will be in 4 months for reevaluation.
== END 2024-05-04 09:04 | disposition home or self-care (01) ==
PROVIDERS: PCP Family Medicine; Visit Provider Urology
PROC: (CPT 52000; principal; 2024-05-04 08:15)
DX: N26.1 Atrophy of kidney (terminal) (principal); R10.9 Unspecified abdominal pain; Z87.440 Personal history of urinary (tract) infections; F17.200 Nicotine dependence, unspecified, uncomplicated; Z86.73 Personal history of transient ischemic attack (TIA), and cerebral infarction without residual deficits; N32.89 Other specified disorders of bladder; N81.10 Cystocele, unspecified
CPT/HCPCS: 52000

== ENCOUNTER 2024-05-27 21:20 | Emergency (ER) | payer OTHER, SELFPAY ==
[2024-05-27 21:22] VITALS: BP 120/86; PULSE 100; TEMP 36.3; BMI 25.4
--- OUTSIDE RECORDS SUMMARY | 2024-05-27 21:28 | XMS_ITS | CCD ---
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 PlasmaOrdered By: Marquez Beal on 03-12-2023 Sodium [Moles/Vol] 141 mmol/L 136-145 [facility] Triglyceride [Mass/volume] i n Serum or PlasmaOrdered By: Marquez Beal on 03-12-2023 Triglyceride [Mass/Vol] 165 mg/dL 0-149 [facility] Comment on above: TRIG ATP III CLASSIF ICATIONTRIG less than 150 mg/dL NormalTRIG 150-199 mg/dL Borderline highTRIG 200-500 mg/dL High TRIG greater than 500 mg/dL Very highStandard traceable to the Center for Disease Conrtrol and Prevention (CDC) test method. Urea nitrogen [Mass/volume] in Serum or PlasmaOrdered By: Marquez Beal on 03-12-2023 Urea nitrogen [Mass/Vol] 18 mg/dL 09-11 [facility] Basic Metabolic Panelon 01-19 Anion gap [Moles/Vol] 12.2 mmol/L Normal 6.0-15.0 [facility] Comment on above: Performed By: #### C JUANITA, BMP ####[place] [address] [place] [address] [facility] Calcium [Mass/Vol] 9.4 mg/dL Normal 8.6-10.3 [facility] Comment on above: Performed By: #### C JUANITA, BMP ####[place] [address] [place] [address] [facility] Chloride [Moles/Vol] 103 mmol/L Normal 98-107 [facility] Comment on above: Performed By: #### C JUANITA, BMP ####[place] [address] [place] [address] [facility] CO2 [Moles/Vol] 26.2 mmol/L Normal 21.0-31.0 [facility] Comment on above: Performed By: #### C JUANITA, BMP ####[place] [address] [place] [address] [facility] Creatinine [Mass/Vol] 1.35 mg/dL High 0.60-1.20 [facility] Comment on above: Performed By: #### C JUANITA, BMP ####[place] [address] [place] [address] [place] Creatinine Clr Calc Pharmacy 40.59 Normal [facility] Comment on above: Result Comment: PERF ORMED BY: [facility] [address] [place] [id number] PATHOLOGIST [employer] JERAMY CALDWELL M.D. Performed By: #### C JUANITA, BMP ####[place] [address] [place] [address] [place] GFR/1.73 sq M.predicted MDRD (S/P/Bld) [Vol rate/Area] 44.991 mL/min/{1.73_m2} Normal [facility] Comment on above: Performed By: #### C JUANITA, BMP ####[facility] [id number] [place] [address] [facility] Glucose [Mass/Vol] 136 mg/dL High 70-100 [facility] Comment on above: Result Comment: [place] Glucose Reference Range is dependent on time and content of last meal. Glucose of more than 200 mg/dL in a nonstressed, ambulatory subject supports the diagnosis of Diabetes Mellitus. ADA recommended reference range Performed By: #### C JUANITA, BMP ####[facility] [id number] [place] [address] [facility] Potassium [Moles/Vol] 5.4 mmol/L High 3.5-5.1 [facility] Comment on above: Performed By: #### C JUANITA, BMP ####[facility] [place] [address] [facility] Sodium [Moles/Vol] 136 mmol/L Normal 136-145 [facility] Comment on above: Performed By: #### C JUANITA, BMP ####[place] [address] [place] [address] [facility] Urea nitrogen [Mass/Vol] 33 mg/dL High 7-25 [facility] Comment on above: Performed By: #### C JUANITA, BMP ####[facility] [id number] [place] [address] [facility] Basophils Auto (Bld) [#/Vol] Ordered By: Jacques East on 02-14-2023 Basophils (Bld) [#/Vol] 0.0 10*3/uL 0.0-0.2 [facility] Basophils/100 WBC Auto (Bld) Ordered By: Obpatriciadaenrique Talbotomar on 02-14-2023 Basophils/100 WBC (Bld) 0.1 % . [facility] Calcium [Mass/volume] in Ser um or PlasmaOrdered By: Jacques Chirinosr on 02-14-2023 Calcium [Mass/Vol] 9.4 mg/dL 8.6-10.3 [facility] Carbon dioxide, total [Moles /volume] in Serum or PlasmaOrdered By: Jacques East on 02-14-2023 CO2 [Moles/Vol] 26.2 mmol/L 21.0-31.0 [facility] Chloride [Moles/volume] in S oralia or PlasmaOrdered By: Jacques Talbotomar on 02-14-2023 Chloride [Moles/Vol] 103 mmol/L 98-107 [facility] Complete Blood Count Auto Di ffon 02-14-2023 Basophils (Bld) [#/Vol] 0.0 10*3/uL Normal 0.0-0.2 [facility] Comment on above: Result Comment: PERF ORMED BY: [facility] [address] [place] [address] PATHOLOGIST [employer] JERAMY CALDWELL M.D. Performed By: #### C , BMP ####[address] Basophils/100 WBC (Bld) 0.1 % Normal . [facility] Comment on above: Performed By: #### C BC, BMP ####[address] Eosinophils (Bld) [#/Vol] 0.0 10*3/uL Normal 0.0-0.45 [facility] Comment on above: Performed By: #### C BC, BMP ####[address] Eosinophils/100 WBC (Bld) 0.0 % Normal . [facility] Comment on above: Performed By: #### C BC, BMP ####[address] Erythrocyte distribution width (RBC) [Ratio] 14.6 % Normal 11.9-15.3 [facility] Comment on above: Performed By: #### C BC, BMP ####[address] Hematocrit (Bld) [Volume fraction] 44.5 % Normal 34.0-46.4 [facility] Comment on above: Performed By: #### C BC, BMP ####[place] [id number] [facility] Hemoglobin (Bld) [Mass/Vol] 15.1 g/dL Normal 11.8-15.4 [facility] Comment on above: Performed By: #### C BC, BMP ####[place] [id number] [facility] Lymphocytes (Bld) [#/Vol] 1.0 10*3/uL Normal 1.00-4.8 [facility] Comment on above: Performed By: #### C BC, BMP ####[address] Lymphocytes/100 WBC (Bld) 7.6 % Normal . [facility] Comment on above: Performed By: #### C BC, BMP ####[address] MCH (RBC) [Entitic mass] 30.6 pg Normal 24.7-34.3 [facility] Comment on above: Performed By: #### C BC, BMP ####[address] MCV (RBC) [Entitic vol] 90.4 fL Normal 80-100 [facility] Comment on above: Performed By: #### C BC, BMP ####[place] [id number] [facility] Mean Corpuscular HGB Conc 33.9 g/dL Normal 32.0-35.0 [facility] Comment on above: Performed By: #### C BC, BMP ####[place] [id number] [facility] Monocytes (Bld) [#/Vol] 0.6 10*3/uL Normal 0.0-0.8 [facility] Comment on above: Performed By: #### C BC, BMP ####[place] [id number] [facility] Monocytes/100 WBC (Bld) 4.7 % Normal . [facility] Comment on above: Performed By: #### C BC, BMP ####[facility] [id number] [place] [address] [facility] Neutrophils (Bld) [#/Vol] 11.1 10*3/uL High 1.8-7.7 [facility] Comment on above: Performed By: #### C BC, BMP ####[place] [address] [place] [address] [facility] Neutrophils/100 WBC (Bld) 87.6 % Normal . [facility] Comment on above: Performed By: #### C JUANITA, BMP ####[place] [address] [place] [address] [facility] NRBC% 0.0 /100{WBC} Normal 0-0.5 [facility] Comment on above: Performed By: #### C JUANITA, BMP ####[place] [address] [place] [address] [facility] Platelet mean volume (Bld) [Entitic vol] 8.5 fL Normal 6.3-10.7 [facility] Comment on above: Performed By: #### C JUANITA, BMP ####[address] [address] [facility] Platelets (Bld) [#/Vol] 220 10*3/uL Normal 150-450 [facility] Comment on above: Performed By: #### C BC, BMP ####[place] [address] [place] [address] [facility] RBC (Bld) [#/Vol] 4.92 10*6/uL Normal 3.60-5.00 [facility] Comment on above: Performed By: #### C BC, BMP ####[place] [id number] [place] [address] [facility] WBC (Bld) [#/Vol] 12.7 10*3/uL High 3.8-11.6 [facility] Comment on above: Performed By: #### C BC, BMP ####[place] [address] [place] [address] [facility] Creatinine [Mass/volume] in Serum or PlasmaOrdered By: Jacques East on 02-14-2023 Creatinine [Mass/Vol] 1.35 mg/dL 0.60-1.20 [facility] Eosinophils Auto (Bld) [#/Vo l]Ordered By: Jacques Chirinosr on 02-14-2023 Eosinophils (Bld) [#/Vol] 0.0 10*3/uL 0.0-0.45 [facility] Eosinophils/100 WBC Auto (Bl d)Ordered By: Jacques East on 02-14-2023 Eosinophils/100 WBC (Bld) 0.0 % . [facility] Erythrocyte distribution wid th Auto (RBC) [Ratio]Ordered By: Jacques East on 02-14-2023 Erythrocyte distribution width (RBC) [Ratio] 14.6 % 11.9-15.3 [facility] Glucose [Mass/volume] in Ser um or PlasmaOrdered By: Jacques East on 02-14-2023 Glucose [Mass/Vol] 136 mg/dL 70-100 [facility] Comment on above: ADA recommended refe rence rangeRandom Glucose Reference Range is dependent on time and content of last meal. Glucose of more than 200 mg/dL in a nonstressed, ambulatory subject supports the diagnosis of Diabetes Mellitus. Hematocrit Auto (Bld) [Volum e fraction]Ordered By: Jacques East on 02-14-2023 Hematocrit (Bld) [Volume fraction] 44.5 % 34.0-46.4 [facility] Hemoglobin [Mass/volume] in BloodOrdered By: Jacques East on 02-14-2023 Hemoglobin (Bld) [Mass/Vol] 15.1 g/dL 11.8-15.4 [facility] Leukocytes [#/volume] correc elliot for nucleated erythrocytes in Blood by Automated counOrdered By: Jacques East on 02-14-2023 WBC corrected for nucl RBC Auto (Bld) [#/Vol] 12.7 10*3/uL 3.8-11.6 [facility] Lymphocytes Auto (Bld) [#/Vo l]Ordered By: Jacques East on 02-14-2023 Lymphocytes (Bld) [#/Vol] 1.0 10*3/uL 1.00-4.8 [facility] Lymphocytes/100 WBC Auto (Bl d)Ordered By: Obpatriciadah Daromar on 02-14-2023 Lymphocytes/100 WBC (Bld) 7.6 % . [facility] MCH Auto (RBC) [Entitic mass ]Ordered By: Obpatriciadaenrique Talbotomar on 02-14-2023 MCH (RBC) [Entitic mass] 30.6 pg 24.7-34.3 [facility] MCHC Auto (RBC) [Mass/Vol]Or dered By: Obpatriciadah Daromar on 02-14-2023 MCHC (RBC) [Mass/Vol] 33.9 g/dL 32.0-35.0 [facility] MCV Auto (RBC) [Entitic vol] Ordered By: Obpatriciadaenrique Talbotomar on 02-14-2023 MCV (RBC) [Entitic vol] 90.4 fL 80-100 [facility] Monocytes Auto (Bld) [#/Vol] Ordered By: Obpatriciadaenrique Daromar on 02-14-2023 Monocytes (Bld) [#/Vol] 0.6 10*3/uL 0.0-0.8 [facility] Monocytes/100 WBC Auto (Bld) Ordered By: Obpatriciadaenrique Talbotomar on 02-14-2023 Monocytes/100 WBC (Bld) 4.7 % . [facility] Neutrophils Auto (Bld) [#/Vo l]Ordered By: Obpatriciadaenrique Talbotomar on 02-14-2023 Neutrophils (Bld) [#/Vol] 11.1 10*3/uL 1.8-7.7 [facility] Neutrophils/100 WBC Auto (Bl d)Ordered By: Obpatriciadah Antioneomar on 02-14-2023 Neutrophils/100 WBC (Bld) 87.6 % . [facility] No Panel InformationOrdered By: Jacques Talbotomar on 02-14-2023 Estimated GFR (CKD-EPI) 44.991 mL/Min [facility] Creatinine Clearance (Chem 40.59 [facility] Nucleated erythrocytes [Pres ence] in Blood by Automated countOrdered By: Jaraddaenrique Talbotomar on 02-14-2023 Nucleated RBC Auto Ql (Bld) 0.0 /100{WBC} 0-0.5 [facility] Platelet mean volume Auto (B ld) [Entitic vol]Ordered By: Obpatriciadah Daromar on 02-14-2023 Platelet mean volume (Bld) [Entitic vol] 8.5 fL 6.3-10.7 [facility] Platelets Auto (Bld) [#/Vol] Ordered By: Obpatriciadah Daromar on 02-14-2023 Platelets (Bld) [#/Vol] 220 10*3/uL 150-450 [facility] Potassium [Moles/volume] in Serum or PlasmaOrdered By: Obpatriciadah Daromar on 02-14-2023 Potassium [Moles/Vol] 5.4 mmol/L 3.5-5.1 [facility] RBC Auto (Bld) [#/Vol]Ordere d By: Obpatriciadah Daromar on 02-14-2023 RBC (Bld) [#/Vol] 4.92 10*6/uL 3.60-5.00 [facility] Serum or plasma anion gap de terminationOrdered By: Obpatriciadah Daromar on 02-14-2023 Anion gap [Moles/Vol] 12.2 mmol/L 6.0-15.0 [facility] Sodium [Moles/volume] in Ser um or PlasmaOrdered By: Obpatriciadah Daromar on 02-14-2023 Sodium [Moles/Vol] 136 mmol/L 136-145 [facility] Urea nitrogen [Mass/volume] in Serum or PlasmaOrdered By: Obaydah Daromar on 02-14-2023 Urea nitrogen [Mass/Vol] 33 mg/dL 7-25 [facility] WBC Auto (Bld) [#/Vol]Ordere d By: Obaydah Daromar on 02-14-2023 WBC (Bld) [#/Vol] 12.7 10*3/uL 3.8-11.6 [facility] Alanine aminotransferase [En zymatic activity/volume] in Serum or PlasmaOrdered By: Obpatriciadaenrique Talbotomar on 02-13-2023 ALT [Catalytic activity/Vol] 16 U/L 7-52 [facility] Albumin [Mass/volume] in Ser um or Plasma by Bromocresol green (BCG) dye binding methoOrdered By: Obpatriciadaenrique Talbotomar on 02-13-2023 Albumin BCG dye [Mass/Vol] 4.0 g/dL 3.5-5.7 [facility] Alkaline phosphatase [Enzyma tic activity/volume] in Serum or PlasmaOrdered By: Obpatriciadaenrique Talbotomar on 02-13-2023 ALP [Catalytic activity/Vol] 57 U/L 34-104 [facility] Aspartate aminotransferase [ Enzymatic activity/volume] in Serum or PlasmaOrdered By: Obpatriciada Daromar on 02-13-2023 AST [Catalytic activity/Vol] 22 U/L 13-39 [facility] Bilirubin.total [Mass/volume ] in Serum or PlasmaOrdered By: Obpatriciadaenrique Talbotomar on 02-13-2023 Bilirubin [Mass/Vol] 0.6 mg/dL 0.3-1.0 [facility] Complete Blood Count Auto Di ffon 02-13-2023 Basophils (Bld) [#/Vol] 0.0 10*3/uL Normal 0.0-0.2 [facility] Comment on above: Result Comment: PERF ORMED BY: [facility] [address] [place] [id number] PATHOLOGIST [employer] WORK[employer] JERAMY CALDWELL M.D. Performed By: #### C JUANITA MG, CMP ####[place] [id number] [place] [address] [facility] Basophils/100 WBC (Bld) 0.2 % Normal . [facility] Comment on above: Performed By: #### C JUANITA MG, CMP ####[facility] [id number] [place] [address] [facility] Eosinophils (Bld) [#/Vol] 0.0 10*3/uL Normal 0.0-0.45 [facility] Comment on above: Performed By: #### C JUANITA MG, CMP ####[place] [id number] [facility] Eosinophils/100 WBC (Bld) 0.0 % Normal . [facility] Comment on above: Performed By: #### C BC MG, CMP ####[place] [id number] [facility] Erythrocyte distribution width (RBC) [Ratio] 14.4 % Normal 11.9-15.3 [facility] Comment on above: Performed By: #### C BC, MG, CMP ####[place] [id number] [facility] Hematocrit (Bld) [Volume fraction] 43.2 % Normal 34.0-46.4 [facility] Comment on above: Performed By: #### C BC MG, CMP ####[place] [id number] [facility] Hemoglobin (Bld) [Mass/Vol] 14.6 g/dL Normal 11.8-15.4 [facility] Comment on above: Performed By: #### C JUANITA MG, CMP ####[place] [id number] [facility] Lymphocytes (Bld) [#/Vol] 2.7 10*3/uL Normal 1.00-4.8 [facility] Comment on above: Performed By: #### C BC MG, CMP ####[place] [id number] [facility] Lymphocytes/100 WBC (Bld) 18.3 % Normal . [facility] Comment on above: Performed By: #### C BC, MG, CMP ####[place] [id number] [facility] MCH (RBC) [Entitic mass] 30.5 pg Normal 24.7-34.3 [facility] Comment on above: Performed By: #### C BC, MG, CMP ####[place] [id number] [facility] MCV (RBC) [Entitic vol] 90.1 fL Normal 80-100 [facility] Comment on above: Performed By: #### C BC, MG, CMP ####[place] [id number] [facility] Mean Corpuscular HGB Conc 33.8 g/dL Normal 32.0-35.0 [facility] Comment on above: Performed By: #### C BC, MG, CMP ####[place] [id number] [facility] Monocytes (Bld) [#/Vol] 1.2 10*3/uL High 0.0-0.8 [facility] Comment on above: Performed By: #### C BC, MG, CMP ####[address] Monocytes/100 WBC (Bld) 7.9 % Normal . [facility] Comment on above: Performed By: #### C BC, MG, CMP ####[address] Neutrophils (Bld) [#/Vol] 11.0 10*3/uL High 1.8-7.7 [facility] Comment on above: Performed By: #### C BC, MG, CMP ####[place] [id number] [facility] Neutrophils/100 WBC (Bld) 73.6 % Normal . [facility] Comment on above: Performed By: #### C BC, MG, CMP ####[place] [id number] [facility] NRBC% 0.1 /100{WBC} Normal 0-0.5 [facility] Comment on above: Performed By: #### C BC, MG, CMP ####[place] [id number] [facility] Platelet mean volume (Bld) [Entitic vol] 7.8 fL Normal 6.3-10.7 [facility] Comment on above: Performed By: #### C BC, MG, CMP ####[place] [id number] [facility] Platelets (Bld) [#/Vol] 212 10*3/uL Normal 150-450 [facility] Comment on above: Performed By: #### C BC MG, CMP ####[address] RBC (Bld) [#/Vol] 4.80 10*6/uL Normal 3.60-5.00 [facility] Comment on above: Performed By: #### C BC MG, CMP ####[place] [id number] [facility] WBC (Bld) [#/Vol] 14.9 10*3/uL High 3.8-11.6 [facility] Comment on above: Performed By: #### C BC MG, CMP ####[address] Comprehensive Metabolic Pane franco 02-13-2023 Albumin [Mass/Vol] 4.0 g/dL Normal 3.5-5.7 [facility] Comment on above: Performed By: #### C BC MG, CMP ####[address] Albumin/Globulin [Mass ratio] 1.6 {ratio} Normal [facility] Comment on above: Performed By: #### C BC MG, CMP ####[place] [id number] [facility] ALP [Catalytic activity/Vol] 57 U/L Normal 34-104 [facility] Comment on above: Performed By: #### C BC MG, CMP ####[place] [id number] [facility] ALT [Catalytic activity/Vol] 16 U/L Normal 7-52 [facility] Comment on above: Performed By: #### C BC MG, CMP ####[place] [id number] [facility] Anion gap [Moles/Vol] 9.4 mmol/L Normal 6.0-15.0 [facility] Comment on above: Performed By: #### C BC, MG, CMP ####[place] [id number] [facility] AST [Catalytic activity/Vol] 22 U/L Normal 13-39 [facility] Comment on above: Performed By: #### C BC MG, CMP ####[place] [id number] [facility] Bilirubin [Mass/Vol] 0.6 mg/dL Normal 0.3-1.0 [facility] Comment on above: Performed By: #### C BC MG, CMP ####[place] [id number] [facility] Calcium [Mass/Vol] 9.2 mg/dL Normal 8.6-10.3 [facility] Comment on above: Performed By: #### C BC MG, CMP ####[place] [id number] [facility] Chloride [Moles/Vol] 105 mmol/L Normal 98-107 [facility] [facility] Comment on above: Performed By: #### C BC MG, CMP ####[place] [id number] [facility] CO2 [Moles/Vol] 27.1 mmol/L Normal 21.0-31.0 [facility] Comment on above: Performed By: #### C BC MG, CMP ####[place] [id number] [facility] Creatinine [Mass/Vol] 1.45 mg/dL High 0.60-1.20 [facility] Comment on above: Performed By: #### C BC MG, CMP ####[place] [id number] [facility] Creatinine Clr Calc Pharmacy 37.90 [facility] Comment on above: Performed By: #### C BC MG, CMP ####[place] [id number] [facility] GFR/1.73 sq M.predicted MDRD (S/P/Bld) [Vol rate/Area] 41.294 mL/min/{1.73_m2} [facility] Comment on above: Performed By: #### C BC MG, CMP ####[place] [id number] [place] 2014270 [facility] Globulin (S) [Mass/Vol] 2.5 g/dL Normal [facility] Comment on above: Performed By: #### C BC, MG, CMP ####[place] [id number] [facility] Glucose [Mass/Vol] 92 mg/dL Normal 70-100 [facility] Comment on above: Result Comment: [place] Glucose Reference Range is dependent on time and content of last meal. Glucose of more than 200 mg/dL in a nonstressed, ambulatory subject supports the diagnosis of Diabetes Mellitus. ADA recommended reference range Performed By: #### C BC MG, CMP ####[place] [id number] [facility] Potassium [Moles/Vol] 4.5 mmol/L Normal 3.5-5.1 [facility] Comment on above: Performed By: #### C BC MG, CMP ####[place] [id number] [facility] Protein [Mass/Vol] 6.5 g/dL Normal 6.4-8.9 [facility] Comment on above: Performed By: #### C BC MG, CMP ####[place] [id number] [facility] Sodium [Moles/Vol] 137 mmol/L Normal 136-145 [facility] Comment on above: Performed By: #### C BC MG, CMP ####[place] [id number] [facility] Urea nitrogen [Mass/Vol] 28 mg/dL High 7-25 [facility] Comment on above: Performed By: #### C BC, MG, CMP ####[place] [id number] [facility] Globulin Calc (S) [Mass/Vol] Ordered By: Jacques East on 02-13-2023 Globulin (S) [Mass/Vol] 2.5 g/dL [facility] Magnesiumon 02-13-2023 Magnesium [Mass/Vol] 1.8 mg/dL Low 1.9-2.7 [facility] Comment on above: Result Comment: PERF ORMED BY: [facility] [address] [place] [address] PATHOLOGIST [employer] JERAMY CALDWELL M.D. Performed By: #### C BC, MG, CMP ####[facility] [id number] [place] [address] [facility] Magnesium [Mass/volume] in S oralia or PlasmaOrdered By: Obpatriciadaenrique Daromar on 02-13-2023 Magnesium [Mass/Vol] 1.8 mg/dL 1.9-2.7 [facility] Protein [Mass/volume] in Ser um or PlasmaOrdered By: Obaydah Daromar on 02-13-2023 Protein [Mass/Vol] 6.5 g/dL 6.4-8.9 [facility] Serum or plasma albumin/glob ulin mass ratioOrdered By: Obpatriciadaenrique Daromar on 02-13-2023 Albumin/Globulin [Mass ratio] 1.6 {ratio} [facility] Activated partial thrombopla stin time (aPTT) in platelet poor plasma by coagulation aOrdered By: Sally Valle on 02-12-2023 aPTT Coag (PPP) [Time] 25.6 s 25.1-36.5 [facility] Comment on above: A hematocrit value g reater than 55% may lead to inaccurate results in coagulation testing. Patients having hematocrit values >55% require a special collection tube for coagulation studies. Please contact the laboratory at [phone] for redraw instructions. Aerobic Cultureon 02-12-2023 Aerobic Culture Light Normal Respira tory Zoe 2 Days Gram Stain Result Rare Epithelial Cells 1+ White Blood Cells Rare Gram Positive Coccobacilli PERFORMED BY: [facility] [address] [place] [address] PATHOLOGIST [employer] WORKER JERAMY CALDWELL M.D. Normal [facility] Comment on above: Performed By: #### A ERC, GS #### [facility] [address] [place] [address] [facility] Automated erythrocytes count in urine sediment (number/area)Ordered By: pete Taran on 02-12-2023 RBC Auto (Urine sed) [#/Area] 1-2 [HPF] 0-4 [facility] Automated leukocytes count i n urine sediment (number/area)Ordered By: [facility]e [facility] on 02-12-2023 WBC Auto (Urine sed) [#/Area] 3-4 [HPF] 0-4 [facility] Bilirubin Test strip Ql (U)O rdered By: Jacques East on 02-12-2023 Bilirubin Ql (U) Negative Negative [facility] Coagulation Profileon 2022 aPTT Coag (Bld) [Time] 25.6 s Normal 25.1-36.5 [facility] Comment on above: Result Comment: A he matocrit value greater than 55% may lead to inaccurate results in coagulation testing. Patients having hematocrit values >55% require a special collection tube for coagulation studies. Please contact the laboratory at [phone] for redraw instructions. PERFORMED BY: [facility] [address] [place] [id number] PATHOLOGIST [employer] WORKER JERAMY CALDWELL M.D. Performed By: #### C JUANITA, PP, CMP ####[place] [id number] [place] [address] [facility] INR Coag (PPP) [Relative time] 0.9 {INR} Normal [facility] Comment on above: Result Comment: INR [...] Performed By: #### C BC, PP, CMP ####[place] [id number] [place] [address]270 [facility] PT Coag (PPP) [Time] 10.9 s Normal 9.0-12.9 [facility] Comment on above: Result Comment: A he matocrit value greater than 55% may lead to inaccurate results in coagulation testing. Patients having hematocrit values >55% require a special collection tube for coagulation studies. Please contact the laboratory at [phone] for redraw instructions. Performed By: #### C JUANITA PP, CMP ####[facility] Color Auto (U)Ordered By: Glenroy East on 02-12-2023 Color (U) Yellow Yellow [facility] Complete Blood Count Auto Di ffon 02-12-2023 Basophils (Bld) [#/Vol] 0.0 10*3/uL Normal 0.0-0.2 [facility] Comment on above: Result Comment: PERF ORMED BY: [place] [address] PATHOLOGIST [employer] WORKER JERAMY CALDWELL M.D. Performed By: #### C JUANITA, PP, CMP #### [address] Basophils/100 WBC (Bld) 0.2 % Normal . [facility] Comment on above: Performed By: #### C JUANITA, PP, CMP #### [address] Eosinophils (Bld) [#/Vol] 0.0 10*3/uL Normal 0.0-0.45 [facility] Comment on above: Performed By: #### C BC, PP, CMP #### [address] Eosinophils/100 WBC (Bld) 0.0 % Normal . [facility] Comment on above: Performed By: #### C BC, PP, CMP #### [address] Erythrocyte distribution width (RBC) [Ratio] 14.6 % Normal 11.9-15.3 [facility] Comment on above: Performed By: #### C BC, PP, CMP #### [address] Hematocrit (Bld) [Volume fraction] 46.1 % Normal 34.0-46.4 [facility] Comment on above: Performed By: #### C JUAINTA PP, CMP #### [address] Hemoglobin (Bld) [Mass/Vol] 15.6 g/dL High 11.8-15.4 [facility] Comment on above: Performed By: #### C JUANITA PP, CMP #### [address] Lymphocytes (Bld) [#/Vol] 0.6 10*3/uL Low 1.00-4.8 [facility] Comment on above: Performed By: #### C SUKH GRANT, CMP #### [address] Lymphocytes/100 WBC (Bld) 4.0 % Normal . [facility] Comment on above: Performed By: #### C JUANITA PP, CMP #### [address] MCH (RBC) [Entitic mass] 30.6 pg Normal 24.7-34.3 [facility] Comment on above: Performed By: #### C SUKH GRANT, CMP #### [address] MCV (RBC) [Entitic vol] 90.6 fL Normal 80-100 [facility] Comment on above: Performed By: #### C JUANITA PP, CMP #### [address] Mean Corpuscular HGB Conc 33.8 g/dL Normal 32.0-35.0 [facility] Comment on above: Performed By: #### C JUANITA PP, CMP #### [address] Monocytes (Bld) [#/Vol] 0.3 10*3/uL Normal 0.0-0.8 [facility] Comment on above: Performed By: #### C JUANITA PP, CMP #### [address] [place] [address] [place] Monocytes/100 WBC (Bld) 1.8 % Normal . [facility] Comment on above: Performed By: #### C JUANITA PP, CMP #### [facility] [address] Neutrophils (Bld) [#/Vol] 14.1 10*3/uL High 1.8-7.7 [facility] Comment on above: Performed By: #### C JUANITA, PP, CMP #### [facility] [address] Neutrophils/100 WBC (Bld) 94.0 % Normal . [facility] Comment on above: Performed By: #### C JUANITA PP, CMP #### [address] NRBC% 0.1 /100{WBC} Normal 0-0.5 [facility] Comment on above: Performed By: #### C JUANITA PP, CMP #### [address] Platelet mean volume (Bld) [Entitic vol] 7.9 fL Normal 6.3-10.7 [facility] Comment on above: Performed By: #### C JUANITA PP, CMP #### [place] [address] [place] Platelets (Bld) [#/Vol] 236 10*3/uL Normal 150-450 [facility] Comment on above: Performed By: #### C JUANITA, PP, CMP #### [place] [address] [place] RBC (Bld) [#/Vol] 5.09 10*6/uL High 3.60-5.00 [facility] Comment on above: Performed By: #### C JUANITA, PP, CMP #### [place] [address] [place] WBC (Bld) [#/Vol] 15.0 10*3/uL High 3.8-11.6 [facility] Comment on above: Performed By: #### C JUANITA, PP, CMP #### [facility] [address] Comprehensive Metabolic Pane franco 02-12-2023 Albumin [Mass/Vol] 4.6 g/dL Normal 3.5-5.7 [facility] Comment on above: Performed By: #### C BC, PP, CMP #### [facility] [address] [place] [id number] [facility] Albumin/Globulin [Mass ratio] 1.5 {ratio} Normal [facility] Comment on above: Performed By: #### C BC, PP, CMP #### [facility] [address] ALP [Catalytic activity/Vol] 70 U/L Normal 34-104 [facility] Comment on above: Performed By: #### C BC, PP, CMP #### [facility] [address] ALT [Catalytic activity/Vol] 19 U/L Normal 7-52 [facility] Comment on above: Performed By: #### C BC, PP, CMP #### [facility] [address] Anion gap [Moles/Vol] Not performed Normal 6.0-15.0 [facility] Comment on above: Performed By: #### C BC, PP, CMP #### [facility] [address] AST [Catalytic activity/Vol] 29 U/L Normal 13-39 [facility] Comment on above: Performed By: #### C BC, PP, CMP #### [facility] [address] [place] [id number] [place] Bilirubin [Mass/Vol] 0.5 mg/dL Normal 0.3-1.0 [facility] Comment on above: Performed By: #### C BC, PP, CMP #### [facility] [address] Calcium [Mass/Vol] 9.9 mg/dL Normal 8.6-10.3 [facility] Comment on above: Performed By: #### C BC, PP, CMP #### [facility] [address] Chloride [Moles/Vol] 106 mmol/L Normal 98-107 [facility] Comment on above: Performed By: #### C JUANITA, PP, CMP #### [facility] [address] CO2 [Moles/Vol] 20.4 mmol/L Low 21.0-31.0 [facility] Comment on above: Performed By: #### C JUANITA, PP, CMP #### [facility] [address] Creatinine [Mass/Vol] 1.65 mg/dL High 0.60-1.20 [facility] Comment on above: Performed By: #### C JUANITA, PP, CMP #### [facility] [address] Creatinine Clr Calc Pharmacy 34.03 [facility] Comment on above: Result Comment: PERF ORMED BY: [place] [address] PATHOLOGIST [employer] WORKER JERAMY CALDWELL M.D. Performed By: #### C JUANITA, PP, CMP #### [address] GFR/1.73 sq M.predicted MDRD (S/P/Bld) [Vol rate/Area] 35.363 mL/min/{1.73_m2} [facility] Comment on above: Performed By: #### C JUANITA, PP, CMP #### [place] [address] [place] Globulin (S) [Mass/Vol] 3.1 g/dL [facility] Comment on above: Performed By: #### C JUANITA, PP, CMP #### [address] Glucose [Mass/Vol] 157 mg/dL High 70-100 [facility] Comment on above: Result Comment: [place] Glucose Reference Range is dependent on time and content of last meal. Glucose of more than 200 mg/dL in a nonstressed, ambulatory subject supports the diagnosis of Diabetes Mellitus. ADA recommended reference range Performed By: #### C BC, PP, CMP #### [facility] [address] Potassium Normal 3.5-5.1 [facility] Comment on above: Result Comment: Spec imen hemolyzed, redraw requested Performed By: #### C BC, PP, CMP #### [place] [address] [place] Protein [Mass/Vol] 7.7 g/dL Normal 6.4-8.9 [facility] Comment on above: Performed By: #### C BC, PP, CMP #### [address] Sodium [Moles/Vol] 140 mmol/L Normal 136-145 [facility] Comment on above: Performed By: #### C BC, PP, CMP #### [place] [address] [place] Urea nitrogen [Mass/Vol] 32 mg/dL High 7-25 [facility] Comment on above: Performed By: #### C BC, PP, CMP #### [place] [address] [place] Dipstick and Microscopicon 1 04-15-2022 Appearance (U) Clear Normal Clear [facility] Comment on above: Order Comment: Name Collection Type:: Clean-Voided Midstream Performed By: #### A DDONUAPLUS #### [place] [address] [place] Bacteria,Urine None Seen Normal None Seen [facility] Comment on above: Order Comment: Name Collection Type:: Clean-Voided Midstream Performed By: #### A DDONUAPLUS #### [place] [address] [place] Bilirubin,Urine Negative Normal Negative [facility] Comment on above: Order Comment: Name Collection Type:: Clean-Voided Midstream Performed By: #### A DDONUAPLUS #### [place] [address] [place] Color (U) Yellow Normal Yellow [facility] Comment on above: Order Comment: Name Collection Type:: Clean-Voided Midstream Performed By: #### A DDONUAPLUS #### [address] Glucose Ql (U) Normal Normal Normal [facility] Comment on above: Order Comment: Name Collection Type:: Clean-Voided Midstream Performed By: #### A DDONUAPLUS #### [place] [address] [place] Hyaline Casts,Urine 0-8 Normal 0-8 [facility] Comment on above: Order Comment: Name Collection Type:: Clean-Voided Midstream Result Comment: PERF ORMED BY: [place] [address] PATHOLOGIST [employer] WORKER JERAMY CALDWELL M.D. Performed By: #### A DDONUAPLUS #### [facility] [address] [place] [address] Ketones Ql (U) Negative Normal Negative [facility] Comment on above: Order Comment: Name Collection Type:: Clean-Voided Midstream Performed By: #### A DDONUAPLUS #### [address] Leukocyte esterase Test strip Ql (U) 1+ High Negative [facility] Comment on above: Order Comment: Name Collection Type:: Clean-Voided Midstream Performed By: #### A DDONUAPLUS #### [facility] [address] [place] [address] [place] Nitrite,Urine Negative Normal Negative [facility] Comment on above: Order Comment: Name Collection Type:: Clean-Voided Midstream Performed By: #### A DDONUAPLUS #### [place] [address] [place] Occult Blood,Urine Negative Normal Negative [facility] Comment on above: Order Comment: Name Collection Type:: Clean-Voided Midstream Result Comment: PERF ORMED BY: [place] [address] PATHOLOGIST [employer] WORKER JERAMY CALDWELL M.D. Performed By: #### A DDONUAPLUS #### [address] pH (U) 5.0 [pH] Normal 5.0-9.0 [facility] Comment on above: Order Comment: Name Collection Type:: Clean-Voided Midstream Performed By: #### A DDONUAPLUS #### [address] Protein,Urine Negative Normal Negative [facility] Comment on above: Order Comment: Name Collection Type:: Clean-Voided Midstream Performed By: #### A DDONUAPLUS #### [address] RBC,Urine 1-2 Normal 0-4 [facility] Comment on above: Order Comment: Name Collection Type:: Clean-Voided Midstream Performed By: #### A DDONUAPLUS #### [address] Specificy [place],Urine 1.017 Normal 1.001-1.03 0 [facility] Comment on above: Order Comment: Name Collection Type:: Clean-Voided Midstream Performed By: #### A DDONUAPLUS #### [address] Squamous Epithelial Cell,Urine 0-1 Normal 0-2 [facility] Comment on above: Order Comment: Name Collection Type:: Clean-Voided Midstream Performed By: #### A DDONUAPLUS #### [address] Urobilinogen,Urine Normal Normal Normal [facility] Comment on above: Order Comment: Name Collection Type:: Clean-Voided Midstream Performed By: #### A DDONUAPLUS #### [place] [address] [place] WBC,Urine 3-4 Normal 0-4 [facility] Comment on above: Order Comment: Name Collection Type:: Clean-Voided Midstream Performed By: #### A DDONUAPLUS #### [facility] [address] [place], [place] [id number] [place] ECG 12 lead ECGon 02-12-2023 ECG 12 lead ECG [facility] Main [place] [address] [place] [address] Electrocardiograph Report Signed Patient: Deysi Hernandez MR#: [id number] : 1960 Acct:[id number] Age/Sex: 62 / F ADM Date: 02/12/23 Loc: Room: [address] [place] [address] Type: ADM IN Attending Dr: Jacques East [...] Signed By Bj Bay DO 02/13 1109 [facility] Gram Stainon 02-12-2023 Microscopic observation Gram stain Nom (Unsp spec) Gram Stain Result Rare Epithelial Cells 1+ White Blood Cells Rare Gram Positive Coccobacilli PERFORMED BY: [place] [address] PATHOLOGIST [employer] WORKER JERAMY CALDWELL M.D. [facility] Comment on above: Performed By: #### A HANNAH #### [address] Gram stain for investigation of transfusion reactionOrdered By: Jacques East on 02-12-2023 Microscopic observation Gram stain Nom (Unsp spec) [facility] Microscopic observation Gram stain Nom (Unsp spec) 2 Days [facility] INR in Platelet poor plasma by Coagulation assayOrdered By: Sally Valle on 02-12-2023 INR Coag (PPP) [Relative time] 0.9 {INR} [facility] Comment on above: INR Therapeutic Rang [...] on 02-12-2023 Ketones (U) [Mass/Vol] Negative Negative [facility] - UrinalysisOrder ed By: Jacques East on 02-12-2023 Hyaline casts LM Ql (Urine sed) 0-8 [LPF] 0-8 [facility] Magnesiumon 02-12-2023 Magnesium [Mass/Vol] 1.8 mg/dL Low 1.9-2.7 [facility] Comment on above: Result Comment: PERF ORMED BY: [facility] [address] [facility] [place] [address] PATHOLOGIST [employer] WORKER JERAMY CALDWELL M.D. Performed By: #### M G ####[facility] [place] [address] [facility] Nitrite Test strip Ql (U)Ord ered By: Jacques East on 02-12-2023 Nitrite Ql (U) Negative Negative [facility] Protein Auto test strip (U) [Mass/Vol]Ordered By: Jacques East on 02-12-2023 Protein (U) [Mass/Vol] Negative Negative [facility] Prothrombin time (PT)Ordered By: Sally Valle on 02-12-2023 PT Coag (PPP) [Time] 10.9 s 9.0-12.9 [facility] Comment on above: A hematocrit value g reater than 55% may lead to inaccurate results in coagulation testing. Patients having hematocrit values >55% require a special collection tube for coagulation studies. Please contact the laboratory at [phone] for redraw instructions. Redraw Potassiumon 3 Potassium [Moles/Vol] 4.4 mmol/L Normal 3.5-5.1 [facility] Comment on above: Order Comment: 1ST S pecimen hemolyzed, redraw requested Result Comment: PERF ORMED BY: [facility] [address] [place] [address] PATHOLOGIST SA[employer] WORKER JERAMY CALDWELL M.D. Performed By: #### R EDRAW K ####[address] [address] [facility] Specific gravity Auto test s trip (U) [Rel density]Ordered By: Jacques East on 02-12-2023 Specific gravity (U) [Rel density] 1.017 1.001-1.03 0 [facility] Squamous epithelial cells de tection in urine sediment by light microscopyOrdered By: Jacques East on 02-12-2023 Epithelial cells.squamous LM Ql (Urine sed) 0-1 [HPF] 0-2 [facility] Troponin I High Sensitivityo n 02-12-2023 Troponin I High Sensitivity 43.8 pg/mL High 0.0-15.0 [facility] Comment on above: Result Comment: PERF ORMED BY: [facility] [address] [place] [address] PATHOLOGIST [employer] WORKER JERAMY CALDWELL M.D. Performed By: #### H S TROP ####[place] [id number] [facility] Troponin I High Sensitivity 70.6 pg/mL Off scale high 0.0-15.0 [facility] Comment on above: Result Comment: Crit ical Result : Called to and read back by: BRANDON LEVINE at: 02/12/2023 08:07:31 by:LUCIANO PERFORMED BY: [place] [address] PATHOLOGIST [employer] OUT WORKER JERAMY CALDWELL M.D. Performed By: #### H S TROP ####[facility] [address] Troponin I.cardiac [Mass/vol ume] in Serum or Plasma by Detection limit <= 0.01 ng/Ordered By: Sally Valle on 02-12-2023 Troponin I.cardiac DL <= 0.01 ng/mL [Mass/Vol] 43.8 pg/mL 0.0-15.0 [facility] Urine bacteria detection by automated methodOrdered By: Jacques East on 02-12-2023 Bacteria Auto Ql (U) None seen None Seen [facility] Urine clarity by refractomet ry automatedOrdered By: Jacques East on 02-12-2023 Clarity Refractometry automated (U) Clear Clear [facility] Urine glucose measurement by automated test strip (mass/volume)Ordered By: Jacques East on 02-12-2023 Glucose Auto test strip (U) [Mass/Vol] Normal mg/dL Normal [facility] Urine hemoglobin detection b y automated test stripOrdered By: Jacques East on 02-12-2023 Hemoglobin Auto test strip Ql (U) Negative Negative [facility] Urine leukocyte esterase det ection by automated test stripOrdered By: Jacques Chirinosr on 02-12-2023 Leukocyte esterase Auto test strip Ql (U) 1+ Negative [facility] Urobilinogen Auto test strip (U) [Mass/Vol]Ordered By: Jacques Chirinosr on 02-12-2023 Urobilinogen (U) [Mass/Vol] Normal mg/dL Normal [facility] XR chest 1V portableon 02-12 XR chest 1V portable [facility] Main [address] [address] XRay Report Signed Patient: Deysi Hernandez MR#: [id number] : 1960 Acct:[id number] Age/Sex: 62 / F ADM Date: 02/12/23 Loc: 3T Room: [address] [place] [address] Type: ADM IN Attending Dr: Jacques East [...] Bj Ma M.D.02/12/2023 12:40 PM Dictation Location: [place] [address] Transcribed By: [facility] 02/12/23 1240 Dictated By: Bj Ma DO 02/12/23 1237 Signed By: 02/12/23 1240 Normal [facility] pH Auto test strip (U)Ordere d By: Jacques East on 02-12-2023 pH (U) 5.0 [pH] 5.0-9.0 [facility] CHEMISTRYOrdered By: SYSTEM SYSTEM on 02-10-2023 Anion [...] 39 pg/mL Normal 5 - 80 pg/mL [facility] COAGULATIONOrdered By: Veronica Guidry on 02-10-2023 aPTT [...] Ag Negative (02/10/23 3:25 PM) Normal Negative [facility] Influenzae B Ag Negative 1 (02/10/23 3:25 PM) Normal Negative [facility] Comment on above: Interpretive Data: [...] 6 (02/10/23 3:25 PM) Normal Not Detected [facility] Comment on above: Interpretive Data: [employer] young [employer] System for Rapid Detection of SARS-CoV-2 [...] 10-26-2022 CNPN Telephone (KIDMMM) ----- DEYSI HERNANDEZ ([id number]) 1960 F Date Time Provider Department 10/26/22 DEBRA FISHMANGREATER [facility] During your visit today, we recorded [...] question. I will also send her a Thanx message encouraging communicate via Thanx if needed. Debra Fishman MD Staff, Department of Kidney Medicine 10/26/22 5:49 PM Allergies As of Date: 10/26/2022 Noted Allergy Reaction CODEINE 09/07/2014 7 - Swelling Date Reviewed: 10/09/2022 Reviewed by: Rosie Harris DO - Fully Assessed Reason for Visit: Patient Question [1572] Prescriptions as of 10/26/2022 - lisinopril (ZESTRIL) [...] Encounter Status:Closed by DEBRA FISHMAN on 10/26/22 [facility] 10-25-2022 CNPN Telephone (TheFix[employer]com) ----- DEYSI HERNANDEZ ([id number]) 1960 F Date Time Provider Department 10/25/22 DEB[facility]MAN [facility] During your visit today, we recorded the following information about you: Linn Solis Ma 10/25/2022 12:36 PM Signed Patient called the office very upset because today at here appointment with Kidney Medicine she was seen by another provider and it wasn't her kidney doctor. She would like Dr. Fishman call her back at [phone] because she has lots of questions that [...] Fully Assessed Reason for Visit: Patient Question [2349] Prescriptions as of 10/25/2022 - lisinopril (ZESTRIL) [...] Status:Closed by LINN SOLIS MA [facility]/25/22 [facility] Tele[facility] (WIQ) ----- DEYSI HERNANDEZ ([id number]) 1960 F Date Time Provider Department 10/11/22 CATHIE MOORE During your visit today, we recorded the following information about you: Cathie Moore, [facility] 10/11/2022 12:57 PM Signed Smoking Cessation Navigation Outcome of contact: Left Message Comments: A voicemail has been left for this patient regarding Tobacco Cessation support options. If this patient has any further questions they can email us at or call us at [phone]. Media Radarth Underliner/Smoking Cessation Navigator: Cathie RichFormerly [facility] Allergies As of Date: 10/11/2022 [...] Status:Closed by CATHIE MOORE on 10/11/22 Normal [facility] Sami 10-09-2022 CNOV Office Visit (ELPIDIO ) ----- DEYSI HERNANDEZ ([id number]) 1960 F Date Time Provider Department 10/09/22 2:00 PM GURMEET OJEDA During your visit today, we recorded the following information about you: Temperature Pulse Blood pressure Weight 97.5 degrees 60/minute 91/60 71.3 kg Height 1.575 m Rosie Harris DO 10/09/2022 5:08 PM Signed [facility] NEPHROLOGY AND HYPERTENSION [facility] SERVICE [...] on metoprol (more content not included)... Normal [facility] URINALYSIS, REFLEX MICROSCOP ICon 10-09-2022 Bacteria LM.HPF (Urine sed) [#/Area] Few Abnormal None Seen [facility] Comment on above: Order Comment: Speci men Type: URINE SPECIMEN Ordering Facility: [facility] Address: [address] [place] [address] Performed By: #### L [id number] #### [facility] CLIA [id number] [address] [place] [address] [place] Bilirubin Ql (U) Negative Normal Negative [facility] Comment on above: Order Comment: Speci men Type: URINE SPECIMEN Ordering Facility: [facility] Address: [address] [place] [address] Performed By: #### L [id number] #### [facility] CLIA [id number] [address] [place] [address] [place] Clarity (Unsp spec) Cloudy Abnormal Clear [facility] Comment on above: Order Comment: Speci men Type: URINE SPECIMEN Ordering Facility: [facility] Address: [address] [place] [address] Performed By: #### L [id number] #### [facility] CLIA [id number] [address] [place] [address] [place] Color (U) Light Yellow Normal Yellow [facility] Comment on above: Order Comment: Speci men Type: URINE SPECIMEN Ordering Facility: [facility] Address: [address] [place] [address] Performed By: #### L [id number] #### [facility] CLIA [id number] [address] [place] [address] [place] Epithelial cells LM.HPF (Urine sed) [#/Area] Few Normal [facility] Comment on above: Order Comment: Speci men Type: URINE SPECIMEN Ordering Facility: [facility] Address: [address] [place] [address] Performed By: #### L [id number] #### [facility] CLIA [id number] [address] [place] [address] [place] Glucose Test strip (U) [Mass/Vol] Negative Normal Trace, Negative [facility] Comment on above: Order Comment: Speci men Type: URINE SPECIMEN Ordering Facility: [facility] Address: [address] [place] [address] Performed By: #### L [id number] #### [facility] CLIA [id number] [address] [place] [address] [place] Hemoglobin Ql (U) Trace Normal Negative, Trace [facility] Comment on above: Order Comment: Speci men Type: URINE SPECIMEN Ordering Facility: [facility] Address: [address] [place] [address] Performed By: #### L [id number] #### [facility] CLIA [id number] [address] [place] [address] [place] Ketones Ql (U) Negative Normal Negative, Trace [facility] Comment on above: Order Comment: Speci men Type: URINE SPECIMEN Ordering Facility: [facility] Address: [address] [place] [address] Performed By: #### L [id number] #### [facility] CLIA [id number] [address] [place] [address] [place] Leukocyte esterase Test strip Ql (U) 250 Bonnie/uL Abnormal Negative, 25 Bonnie/uL [facility] Comment on above: Order Comment: Speci men Type: URINE SPECIMEN Ordering Facility: [facility] Address: [address] [place] [address] Performed By: #### L [id number] #### [facility] CLIA [id number] [address] [place] [address] [place] Nitrite Ql (U) 2+ Abnormal Negative [facility] Comment on above: Order Comment: Speci men Type: URINE SPECIMEN Ordering Facility: [facility] Address: [address] [place] [address] Performed By: #### L [id number] #### [facility] CLIA [id number] [address] [place] [address] [place] pH (U) 5.5 [pH] Normal 5.0-8.0 [facility] Comment on above: Order Comment: Speci men Type: URINE SPECIMEN Ordering Facility: [facility] Address: [address] [place] [address] Performed By: #### L [id number] #### [facility] CLIA [id number] [address] [place] [address] [place] Protein (U) [Mass/Vol] Negative Normal Trace , Negative [facility] Comment on above: Order Comment: Speci men Type: URINE SPECIMEN Ordering Facility: [facility] Address: [address] [place] [address] Performed By: #### L [id number] #### [facility] CLIA [id number] [address] [place] [address] [place] RBC LM.HPF (Urine sed) [#/Area] 0-3 /HPF Normal 0-3 /HPF [facility] Comment on above: Order Comment: Speci men Type: URINE SPECIMEN Ordering Facility: [facility] Address: [address] [place] [address] Performed By: #### L [id number] #### [facility] CLIA [id number] [facility] [place] [address] [place] Specific gravity (U) [Rel density] 1.015 Normal 1.005-1.03 0 [facility] Comment on above: Order Comment: Speci men Type: URINE SPECIMEN Ordering Facility: [facility] Address: [address] [place] [address] Performed By: #### L [id number] #### [facility] CLIA [id number] [address] [place] [address] Urobilinogen Ql (U) Negative Normal Negative [facility] Comment on above: Order Comment: Speci men Type: URINE SPECIMEN Ordering Facility: [facility] Address: [address] [place] [address] Performed By: #### L [id number] #### [facility] CLIA [id number] [address] [place] [address] [place] WBC LM.HPF (Urine sed) [#/Area] /[HPF] Abnormal 0-5 /HPF [facility] Comment on above: Order Comment: Speci men Type: URINE SPECIMEN Ordering Facility: [facility] Address: [address] [place] [address] Performed By: #### L [id number] #### [facility] CLIA [id number] [address] [place] [address] Bacteria LM.HPF (Urine sed) [#/Area] Few Abnormal None Seen /HPF [facility] Bilirubin Ql (U) Negative Negative [facility] Clarity (Unsp spec) Cloudy Abnormal Clear [facility] Color (U) Light Yellow Yellow [facility] Epithelial cells LM.HPF (Urine sed) [#/Area] Few [facility] Glucose Test strip (U) [Mass/Vol] Negative Trace, Negative [facility] Hemoglobin Ql (U) Trace Negative, Trace [facility] Ketones Ql (U) Negative Negative, Trace [facility] Leukocyte esterase Test strip Ql (U) 250 Bonnie/uL Abnormal Negative, 25 Bonnie/uL [facility] Nitrite Ql (U) 2+ Abnormal Negative [facility] pH (U) 5.5 [pH] 5.0 - 8.0 [facility] Protein (U) [Mass/Vol] Negative Trace , Negative [facility] RBC LM.HPF (Urine sed) [#/Area] 0-3 /HPF 0-3 /HPF [facility] Specific gravity (U) [Rel density] 1.015 1.005 - 1.030 [facility] Urobilinogen Ql (U) Negative Negative [facility] WBC LM.HPF (Urine sed) [#/Area] /[HPF] Abnormal 0-5 /HPF [facility] 25(OH)D3 SerPl-mCncon 2022 25-hydroxyvitamin D3 [Mass/Vol] 34.5 ng/mL Normal 31.0-80.0 [facility] Comment on above: Order Comment: Speci men Type: BLOOD SPECIMEN Ordering Facility: [facility] Address: [address] [id number] Result Comment: Clas sification of 25 [place] Vitamin D status: Deficiency/Insufficiency: < or = 30 ng/ml. Sufficiency/Optimal Levels: 31-80 ng/mL Toxicity: > 100 ng/mL. Test performed by chemiluminescent immunoassay. Performed By: #### 1 989-3 #### [facility] CLIA [id number] [address] [place] [address] IMMUNOFIXATION SCREEN, SERUM on 08-23-2022 MPA RESULT No M protein is identified. Normal No M protein is identified . [facility] Comment on above: Order Comment: Speci men Type: BLOOD SPECIMEN Ordering Facility: [facility] Address: [address] Performed By: #### I FESC #### [facility] CLIA [id number] [address] [place] [address] STAFF REVIEW (MPA) Reviewed by Cortes Alfredo MD, Ph.D ([id number]) Normal [facility] Comment on above: Order Comment: Speci men Type: BLOOD SPECIMEN Ordering Facility: [facility] Address: [address] Performed By: #### I FESC #### [facility] CLIA [id number] [address] [place] [address] [place] IMMUNOGLOBULINS GAMon 2022 IgA [Mass/Vol] 218 mg/dL Normal 70-400 [facility] Comment on above: Order Comment: Speci men Type: BLOOD SPECIMEN Ordering Facility: [facility] Address: [address] Performed By: #### S ERIMM #### [facility] CLIA [id number] [address] [place] [address] [place] IgG [Mass/Vol] 775 mg/dL Normal 700-1600 [facility] Comment on above: Order Comment: Speci [facility] Type: BLOOD SPECIMEN Ordering Facility: [facility] Address: [address] [place] [address] Performed By: #### S ERIMM #### [facility] CLIA [id number] [address] [place] [address] [place] IgM [Mass/Vol] 129 mg/dL Normal 40-230 [facility] Comment on above: Order Comment: Speci men Type: BLOOD SPECIMEN Ordering Facility: [facility] Address: [address] [place] [address] Performed By: #### S ERIMM #### [facility] CLIA [id number] [address] [place] [address] [place] KAPPA/THAO,FREE,SERon 2022 Immunoglobulin light chains.kappa.free (S) [Mass/Vol] 26.1 mg/L High 3.3-19.4 [facility] Comment on above: Order Comment: Speci [facility] Type: BLOOD SPECIMEN Ordering Facility: [facility] Address: [address] [place] [address] Result Comment: Rare ly, increased serum free light chains levels may not be detected or accurately quantified due to prozone phenomenon or in high viscosity samples using this immunoturbidimetric assay. Correlation with other laboratory results and clinical findings is recommended. The [place] Free Light Chain was performed using the Binding Site Optilite immunoturbidimetric method. Result obtained with different assay methods or kits cannot be used interchangeably. Performed By: #### K LFRS #### [facility] CLIA [id number] [address] [place] [address] [place] Immunoglobulin light chains.kappa/Immunoglo bulin light chains.lambda (S) [Mass ratio] 1.01 Normal 0.26-1.65 [facility] Comment on above: Order Comment: Speci men Type: BLOOD SPECIMEN Ordering Facility: [facility] Address: [address] Performed By: #### K LFRS #### [facility] CLIA [id number] [address] [place] [address] [place] Immunoglobulin light chains.lambda.free [Mass/Vol] 25.9 mg/L Normal 5.7-26.3 [facility] Comment on above: Order Comment: Speci [facility] Type: BLOOD SPECIMEN Ordering Facility: [facility] Address: [address] Result Comment: Rare ly, increased serum free [...] interchangeably. Performed By: #### K LFRS #### [facility] CLIA [id number] [address] [place] [address] [place] Renal function 2000 panelon 08-23-2022 Albumin [Mass/Vol] 4.3 g/dL Normal 3.9-4.9 [facility] Comment on above: Order Comment: Speci men Type: BLOOD SPECIMEN Ordering Facility: [facility] Address: [address] [place] [address] Performed By: #### 2 4362-6 #### [facility] CLIA [id number] [address] [place] [address] [place] Anion gap [Moles/Vol] 9 mmol/L Normal 9-18 [facility] Comment on above: Order Comment: Speci men Type: BLOOD SPECIMEN Ordering Facility: [facility] Address: [address] Performed By: #### 2 4362-6 #### [facility] CLIA [id number] [address] [place] [address] [place] Calcium [Mass/Vol] 9.9 mg/dL Normal 8.5-10.2 [facility] Comment on above: Order Comment: Speci men Type: BLOOD SPECIMEN Ordering Facility: [facility] Address: [address] [address] Performed By: #### 2 4362-6 #### [facility] IA [id number] [address] [place] [address] [place] Chloride [Moles/Vol] 105 mmol/L Normal 97-105 [facility] Comment on above: Order Comment: Speci men Type: BLOOD SPECIMEN Ordering Facility: [facility] Address: [address] [place] [address] Performed By: #### 2 4362-6 #### [facility] IA [id number] [address] [place] [address] [place] CO2 [Moles/Vol] 25 mmol/L Normal 22-30 [facility] Comment on above: Order Comment: Speci men Type: BLOOD SPECIMEN Ordering Facility: [facility] Address: [address] [place] [address] Performed By: #### 2 4362-6 #### [facility] IA [id number] [place] [address] [place] Creatinine [Mass/Vol] 1.42 mg/dL High 0.58-0.96 [facility] Comment on above: Order Comment: Speci men Type: BLOOD SPECIMEN Ordering Facility: [facility] Address: [address] [address] Performed By: #### 2 4362-6 #### [facility] IA [id number] [address] [place] [address] [place] ESTIMATED GLOMERULAR FILTRATION RATE 42 mL/min/1.73m??? Low >=60 [facility] Comment on above: Order Comment: Speci men Type: BLOOD SPECIMEN Ordering Facility: [facility] Address: [address] [place] [address] Result Comment: Jody mated Glomerular Filtration Rate [...] Performed By: #### 2 4362-6 #### [facility] CLIA [id number] [address] [place] [address] [place] Glucose [Mass/Vol] 70 mg/dL Low 74-99 [facility] Comment on above: Order Comment: Carmen juarez Type: BLOOD SPECIMEN Ordering Facility: [facility] Address: [address] Result Comment: The [place] Diabetes Association (ADA) provides guidance for cutoff [...] Standards of Medical Care in Diabetes 2016, [place] [employer]. Diabetes Care. 2016.39(Suppl 1). Performed By: #### 2 4362-6 #### [facility] CLIA [id number] [address] [place] [address] [place] Phosphate [Mass/Vol] 2.5 mg/dL Low 2.7-4.8 [facility] Comment on above: Order Comment: Carmen juarez Type: BLOOD SPECIMEN Ordering Facility: [facility] Address: [address] [id number] Performed By: #### 2 4362-6 #### [facility] CLIA [id number] [address] [place] [address] [place] Potassium [Moles/Vol] 4.8 mmol/L Normal 3.7-5.1 [facility] Comment on above: Order Comment: Speci men Type: BLOOD SPECIMEN Ordering Facility: [facility] Address: [address] [address] Performed By: #### 2 4362-6 #### [facility] CLIA [id number] [address] [place], [place] [address] [place] [address] [place] OF [facility] Sodium [Moles/Vol] 139 mmol/L Normal 136-144 [facility] Comment on above: Order Comment: Speci men Type: BLOOD SPECIMEN Ordering Facility: [facility] Address: [address] [address] Performed By: #### 2 4362-6 #### [facility] CLIA [id number] [address] [place], [place] [address] [place] [address] [place] Urea nitrogen [Mass/Vol] 18 mg/dL Normal 7-21 [facility] Comment on above: Order Comment: Speci men Type: BLOOD SPECIMEN Ordering Facility: [facility] Address: [address] [address] Performed By: #### 2 4362-6 #### [facility] CLIA [id number] [address] [place] US KIDNEY/BLADDERon 08-24-19 23 US KIDNEY/BLADDER * * *Final Report* * * DATE OF EXAM: Aug 23 2022 2:15PM [facility] 1055 - KIDNEY/BLADDER / PROCEDURE REASON: [...] residual bladder volume 4. Right renal cyst Postbed Stitcher: ERICK Transcribe Date/Time: Aug 28 2022 8:25A Dictated by : ALEAH QUINN MD This examination was interpreted and the report reviewed and electronically signed by: ALEAH QUINN MD on Aug 28 2022 8:28AM EST [id number] [facility] 08-09-2022 [facility] Office Visit (KIDMMHussein ) ----- DEYSI HERNANDEZ ([id number]) 1960 F Date Time Provider Department 08/09/22 3:00 PM GUIGURMEET During your visit today, we recorded the following information about you: Temperature Pulse Blood pressure Weight 97.7 degrees 65/minute 98/64 72.5 kg Height 1.575 m Debra Fishman MD 08/09/2022 7:02 PM Signed [facility] NEPHROLOGY AND HYPERTENSION [facility] SERVICE [...] Normal mo (more content not included)... Normal [facility] URINALYSIS, REFLEX MICROSCOP ICon 08-09-2022 Bilirubin Ql (U) Negative Normal Negative [facility] Comment on above: Order Comment: Speci men Type: URINE SPECIMEN Ordering Facility: [facility] Address: [address] [id number] Performed By: #### L [id number] #### [facility] CLIA [id number] [address] [place] [address] [place] Clarity (Unsp spec) Clear Normal Clear [facility] Comment on above: Order Comment: Speci men Type: URINE SPECIMEN Ordering Facility: [facility] Address: [address] [place] [address] Performed By: #### L [id number] #### [facility] CLIA [id number] [address] [place] [address] [place] Color (U) Light Yellow Normal Yellow [facility] Comment on above: Order Comment: Speci men Type: URINE SPECIMEN Ordering Facility: [facility] Address: [address] [place] [address] Performed By: #### L [id number] #### [facility] CLIA [id number] [address] [place] [address] [place] Glucose Test strip (U) [Mass/Vol] Negative Normal Trace, Negative [facility] Comment on above: Order Comment: Speci men Type: URINE SPECIMEN Ordering Facility: [facility] Address: [address] [place] [address] Performed By: #### L [id number] #### [facility] CLIA [id number] [address] [place] [address] [place] Hemoglobin Ql (U) Negative Normal Negative, Trace [facility] Comment on above: Order Comment: Speci men Type: URINE SPECIMEN Ordering Facility: [facility] Address: [address] [place] [address] Performed By: #### L [id number] #### [facility] CLIA [id number] [address] [place] [address] [place] Ketones Ql (U) Negative Normal Negative, Trace [facility] Comment on above: Order Comment: Speci men Type: URINE SPECIMEN Ordering Facility: [facility] Address: [address] Performed By: #### L [id number] #### [facility] CLIA [id number] [address] STATES [facility] Leukocyte esterase Test strip Ql (U) 75 Bonnie/uL Abnormal Negative, 25 Bonnie/uL [facility] Comment on above: Order Comment: Speci men Type: URINE SPECIMEN Ordering Facility: [facility] Address: [address] Performed By: #### L [id number] #### [facility] CLIA [id number] [address] [place] [address] [place] Nitrite Ql (U) Negative Normal Negative [facility] Comment on above: Order Comment: Speci men Type: URINE SPECIMEN Ordering Facility: [facility] Address: [address] [place] [address] Performed By: #### L [id number] #### [facility] CLIA [id number] [address] [place] [address] [place] [facility] pH (U) 6.0 [pH] Normal 5.0-8.0 [facility] Comment on above: Order Comment: Speci men Type: URINE SPECIMEN Ordering Facility: [facility] Address: [address] [place] [address] Performed By: #### L [id number] #### [facility] CLIA [id number] [address] [place] [address] [place] Protein (U) [Mass/Vol] Negative Normal Trace , Negative [facility] Comment on above: Order Comment: Speci men Type: URINE SPECIMEN Ordering Facility: [facility] Address: [address] Performed By: #### L [id number] #### [facility] CLIA [id number] [address] [place] Specific gravity (U) [Rel density] 1.009 Normal 1.005-1.03 0 [facility] Comment on above: Order Comment: Speci men Type: URINE SPECIMEN Ordering Facility: [facility] Address: [address] [address] Performed By: #### L [id number] #### [facility] CLIA [id number] [address] [place] [address] [place] Urobilinogen Ql (U) Negative Normal Negative [facility] Comment on above: Order Comment: Speci men Type: URINE SPECIMEN Ordering Facility: [facility] Address: [address] [address] Performed By: #### L [id number] #### [facility] CLIA [id number] [address] [place] [address] OF TRAV Bilirubin Ql (U) Negative Negative [facility] Clarity (Unsp spec) Clear Clear [facility] Color (U) Light Yellow Yellow [facility] Glucose Test strip (U) [Mass/Vol] Negative Trace, Negative [facility] Hemoglobin Ql (U) Negative Negative, Trace [facility] Ketones Ql (U) Negative Negative, Trace [facility] Leukocyte esterase Test strip Ql (U) 75 Bonnie/uL Abnormal Negative, 25 Bonnie/uL [facility] Nitrite Ql (U) Negative Negative [facility] pH (U) 6.0 [pH] 5.0 - 8.0 [facility] Protein (U) [Mass/Vol] Negative Trace , Negative [facility] Specific gravity (U) [Rel density] 1.009 1.005 - 1.030 [facility] Urobilinogen Ql (U) Negative Negative [facility] LIPID PROFILEon 06-12-2022 CHOL-HDL RATIO NORM SEE BELOW Normal [facility] Comment on above: Result Comment: 3.3 - 4.4 LOW RISK 4.4 - 7.1 AVERAGE RISK 7.1 - 11.0 MODERATE RISK >11.0 HIGH RISK Performed By: #### L IPID, BMP #### [facility] [address] [place] [address] Dr. Moreno Amato Cholesterol [Mass/Vol] 178 mg/dL Normal <=200 [facility] Comment on above: Performed By: #### L IPID, BMP #### [facility] [address] [address] [address] Moreno Amato Cholesterol in HDL [Mass/Vol] 39 mg/dL Critically low 40-60 [facility] Comment on above: Performed By: #### L IPID, BMP #### [facility] [address] [address] [address] Moreno Amato Cholesterol in LDL [Mass/Vol] 92.0 mg/dL Normal [facility] Comment on above: Performed By: #### L IPID, BMP #### [facility] [address] [place] [address] Dr. Moreno Amato Cholesterol.total/Chol esterol in HDL [Mass ratio] 4.6 {ratio} Normal [facility] Comment on above: Performed By: #### L IPID, BMP #### [facility] [address] [place] [address] Dr. Moreno Amato HDL NORMAL > or = 60 mg/dl - LO W CARDIOVASCULAR RISK <40 mg/dl - HIGH CARDIOVASCULAR RISK Normal [facility] Comment on above: Performed By: #### L IPID, BMP #### [facility] [address] [place] [address] Dr. Moreno Amato LDL CALC NORMAL SEE BELOW Normal [facility] Comment on above: Result Comment: <100 mg/dl OPTIMAL 100 - 129 mg/dl NEAR OR ABOVE OPTIMAL 130 - 159 mg/dl BORDERLINE HIGH 160 - 189 mg/dl HIGH >190 mg/dl VERY HIGH Performed By: #### L IPID, BMP #### [facility] [address] [address] [address] Moreno Amato Triglyceride [Mass/Vol] 235 mg/dL Critically high <=150 [facility] Comment on above: Performed By: #### L IPID, BMP #### [facility] [address] [address] [address] Moreno Amato VLDL CALC 47.0 mg/dL Normal [facility] Comment on above: Performed By: #### L IPID, BMP #### [facility] [address] [place] [address] Dr. Moreno Amato PROF CHEM 8 (BAS METB)on Anion gap [Moles/Vol] 10.7 mmol/L Normal [facility] Comment on above: Performed By: #### L IPID, BMP #### [facility] [address] [place] [address] Dr. Moreno Amato Calcium [Mass/Vol] 9.6 mg/dL Normal 8.5-10.[address] [facility] Comment on above: Performed By: #### L IPID, BMP #### [facility] [address] [place] [address] Dr. Moreno Amato Chloride [Moles/Vol] 104 mmol/L Normal 98-107 [facility] Comment on above: Performed By: #### L IPID, BMP #### [facility] [address] [place] [address] Dr. Moreno Amato CO2 [Moles/Vol] 31.6 mmol/L Normal 21.0-32.0 [facility] Comment on above: Performed By: #### L IPID, BMP #### [facility] [address] [place] [address] Dr. Moreno Amato Creatinine [Mass/Vol] 1.58 mg/dL Critically high 0.55-1.02 [facility] Comment on above: Performed By: #### L IPID, BMP #### [facility] [address] [place] [address] Dr. Moreno Amato EGFR-AF ZIMBABWEAN 40 mL/min/1.73m2 Critically low >=60 [facility] Comment on above: Performed By: #### L IPID, BMP #### [facility] [address] [place] [address] Dr. Moreno Amato EGFR-NON AF ZIMBABWEAN 33 mL/min/1.73m2 Critically low >=60 [facility] Comment on above: Performed By: #### L IPID, BMP #### [facility] [address] [place] [address] Dr. Moreno Amato Glucose [Mass/Vol] 79 mg/dL Normal 74-[address] [facility] Comment on above: Performed By: #### L IPID, BMP #### [facility] [address] [place] [address] Dr. Moreno Amato Potassium [Moles/Vol] 4.3 mmol/L Normal 3.5-5.1 [facility] Comment on above: Performed By: #### L IPID, BMP #### [facility] [address] [place] [address] Dr. Moreno Amato Sodium [Moles/Vol] 142 mmol/L Normal 136-[address] [facility] Comment on above: Performed By: #### L IPID, BMP #### [facility] [address] [place] [address] Dr. Moreno Amato Urea nitrogen [Mass/Vol] 21.0 mg/dL Critically high 7.0-18.0 [facility] Comment on above: Performed By: #### L IPID, BMP #### [facility] [address] [place] [address] Dr. Moreno Amato Urea nitrogen/Creatinine [Mass ratio] 13.3 mg/mg Normal [facility] Comment on above: Performed By: #### L IPID, BMP #### [facility] [address] [place] [address] Dr. Moreno Amato URINE T PROTEIN CREAT RATIOo n 06-12-2022 Protein (U) [Mass/Vol] 8.8 mg/dL Normal <=12.0 [facility] Comment on above: Performed By: #### A MY, CMP, LIPA #### [facility] [address] [place] [address] Dr. Moreno Amato UR PROT CREAT RAT 0.12 Normal [facility] Comment on above: Performed By: #### A MY, CMP, LIPA #### [facility] [address] [place] [address] Dr. Moreno Amato URINE CREAT 70.82 mg/dL Normal 20.00-300. 00 [facility] Comment on above: Performed By: #### A MY, CMP, LIPA #### [facility] [address] [address] [address] Moreno Amato HEMOGLOBINon 04-30-2022 Hemoglobin (Bld) [Mass/Vol] 15.3 g/dL Normal 12.0-16.0 [facility] Comment on above: Performed By: #### A MY, CMP, LIPA #### [facility] [address] [address] [address] Moreno Amato LIPID PROFILEon 03-27-2022 CHOL-HDL RATIO NORM SEE BELOW Normal [facility] Comment on above: Result Comment: 3.3 - 4.4 LOW RISK 4.4 - 7.1 AVERAGE RISK 7.1 - 11.0 MODERATE RISK >11.0 HIGH RISK Performed By: #### A MY, CMP, LIPA #### [facility] [address] [address] [address] Moreno Amato Cholesterol [Mass/Vol] 217 mg/dL Critically high <=200 [facility] Comment on above: Performed By: #### A MY, CMP, LIPA #### [facility] [address] [address] [address] Moreno Amato Cholesterol in HDL [Mass/Vol] 42 mg/dL Normal 40-60 [facility] Comment on above: Performed By: #### A MY, CMP, LIPA #### [facility] [address] [address] [address] Moreno Amato Cholesterol in LDL [Mass/Vol] 121.6 mg/dL Normal [facility] Comment on above: Performed By: #### A MY, CMP, LIPA #### [facility] [address] [address] [address] Moreno Amato Cholesterol.total/Chol esterol in HDL [Mass ratio] 5.2 {ratio} Normal [facility] Comment on above: Performed By: #### A MY, CMP, LIPA #### [facility] [address] [address] [address] Moreno Amato HDL NORMAL > or = 60 mg/dl - LO W CARDIOVASCULAR RISK <40 mg/dl - HIGH CARDIOVASCULAR RISK Normal [facility] Comment on above: Performed By: #### A MY, CMP, LIPA #### [facility] [address] [address] [address] Moreno Amato LDL CALC NORMAL SEE BELOW Normal [facility] Comment on above: Result Comment: <100 mg/dl OPTIMAL 100 - 129 mg/dl NEAR OR ABOVE OPTIMAL 130 - 159 mg/dl BORDERLINE HIGH 160 - 189 mg/dl HIGH >190 mg/dl VERY HIGH Performed By: #### A MY, CMP, LIPA #### [facility] [address] [address] [address] Moreno Amato Triglyceride [Mass/Vol] 267 mg/dL Critically high <=150 [facility] Comment on above: Performed By: #### A MY, CMP, LIPA #### [facility] [address] [address] [address] Moreno Amato VLDL CALC 53.4 mg/dL Normal [facility] Comment on above: Performed By: #### A MY, CMP, LIPA #### [facility] [address] [address] [address] Moreno Amato PROF CHEM 8 (BAS METB)on Anion gap [Moles/Vol] 11.1 mmol/L Normal [facility] Comment on above: Performed By: #### A MY, CMP, LIPA #### [facility] [address] [address] [address] Moreno Amato Calcium [Mass/Vol] 9.2 mg/dL Normal 8.5-10.[address] [facility] Comment on above: Performed By: #### A MY, CMP, LIPA #### [facility] [address] [address] [address] Moreno Amato Chloride [Moles/Vol] 104 mmol/L Normal 98-107 [facility] Comment on above: Performed By: #### A MY, CMP, LIPA #### [facility] [address] [address] [address] Moreno Amato CO2 [Moles/Vol] 27.4 mmol/L Normal 21.0-32.0 [facility] Comment on above: Performed By: #### A MY, CMP, LIPA #### [facility] [address] [address] [address] Moreno Amato Creatinine [Mass/Vol] 1.30 mg/dL Critically high 0.55-1.02 [facility] Comment on above: Performed By: #### A MY, CMP, LIPA #### [facility] [address] [place] [address] Dr. Moreno Amato EGFR-AF ZIMBABWEAN 51 mL/min/1.73m2 Critically low >=60 [facility] Comment on above: Performed By: #### A MY, CMP, LIPA #### [facility] [address] [place] [address] Dr. Moreno Amato EGFR-NON AF ZIMBABWEAN 42 mL/min/1.73m2 Critically low >=60 [facility] Comment on above: Performed By: #### A MY, CMP, LIPA #### [facility] [address] [place] [address] Dr. Moreno Amato Glucose [Mass/Vol] 102 mg/dL Normal 74-[address] [facility] Comment on above: Performed By: #### A MY, CMP, LIPA #### [facility] [address] [place] [address] Dr. Moreno Amato Potassium [Moles/Vol] 4.5 mmol/L Normal 3.5-5.1 [facility] Comment on above: Performed By: #### A MY, CMP, LIPA #### [facility] [address] [place] [address] Dr. Moreno Amato Sodium [Moles/Vol] 138 mmol/L Normal 136-145 [facility] Comment on above: Performed By: #### A MY, CMP, LIPA #### [facility] [address] [place] [address] Dr. Moreno Amato Urea nitrogen [Mass/Vol] 23.0 mg/dL Critically high 7.0-18.0 [facility] Comment on above: Performed By: #### A MY, CMP, LIPA #### [facility] [address] [place] [address] Dr. Moreno Amato Urea nitrogen/Creatinine [Mass ratio] 17.7 mg/mg Normal [facility] Comment on above: Performed By: #### A MY CMP, LIPA #### [facility] [address] [place] [address] Dr. Moreno ROSEOTon 03-27-2022 AST [Catalytic activity/Vol] 24 U/L Normal 15-37 [facility] Comment on above: Performed By: #### A TOMMY CMP, LIPA #### [facility] [address] [address] [address] Moreno Amato SGPTon 03-27-2022 ALT [Catalytic activity/Vol] 20 U/L Normal 14-59 [facility] Comment on above: Performed By: #### A ERIKA SANDERS, LIPA #### [facility] [address] [place] [address] Dr. Moreno Amato COVID/FLU RT-PCRon SARS-CoV-2 (COVID-19) RNA ELISA+probe Ql (Unsp spec) Negative [facility] Other COVID/FLU RT-PCR Negative [facility] [employer] Other Quick Strepon 03-19-2022 S. pyogenes Org specific cx Ql (Throat) Negative [facility] [email or web address] Other Quick Strep [facility] [employer] Other Tobacco Screening.on 023 Adult depression screening assessment No [facility] [address] DO Work Phone: Fall risk assessment c) Not medically indicated [facility] [address] DO Work Phone: Tobacco use status CPHS b) No [facility] [address] DO Work Phone: PAP ACOG PANEL 2: 30 to 65on 03-02-2022 . . Normal [facility] Comment on above: Result Comment: Perf ormed at: WB Performed By: #### A MY, CMP, LIPA #### [facility] [address] [address] [address] Moreno Amato Age Gdln ACOG Testing 30-65 Normal [facility] Comment on above: Performed By: #### A MY, CMP, LIPA #### [facility] [address] [address] [address] Moreno Amato DIAGNOSIS: Comment Normal [facility] Comment on above: Result Comment: NEGA TIVE FOR INTRAEPITHELIAL LESION OR MALIGNANCY. Performed at: WB Performed By: #### A MY, CMP, LIPA #### [facility] [address] [place] [address] Dr. Moreno Amato HPV Aptima Negative Normal Negative [facility] Comment on above: Result Comment: This nucleic acid amplification test detects fourteen high-risk HPV types (16,18,31,33,35,39,45,51,52,56,58,59,66,68) without differentiation. Performed at: =G Performed By: #### A MY, CMP, LIPA #### [facility] [address] [place] [address] Dr. Moreno Amato HPV Genotype Reflex Comment Normal [facility] Comment on above: Result Comment: Crit eria not met, HPV Genotype not performed. Performed at: WB Performed By: #### A MY, CMP, LIPA #### [facility] [address] [place] [address] Dr. Moreno Amato Methodology: Comment Normal [facility] Comment on above: Result Comment: This liquid based ThinPrep(R) pap test was screened with the use of an image guided system. Performed at: WB Performed By: #### A MY, CMP, LIPA #### [facility] [address] [place] [address] Dr. Moreno Amato Note: Comment Normal [facility] Comment on above: Result Comment: The [...] #### [facility] [address] [place], [place] [address] Dr. Moreno Amato Performed by: Comment Normal [facility] Comment on above: Result Comment: Maria Luisa Chou, Transmission Rebuilder (ASCP) Performed at: WB Performed By: #### A MY, CMP, LIPA #### [facility] [address] [place], [place] [address] Dr. Moreno Amato Specimen adequacy: Comment Normal [facility] Comment on above: Result Comment: Sati sfactory for evaluation. Endocervical and/or squamous metaplastic cells (endocervical component) are present. Performed at: WB Performed By: #### A MY, CMP, LIPA #### [facility] [id number] Moreno Amato XR CHEST 2 [facility] CARDI[facility]ESS/REST INJE CTIONon 01-23-2022 [facility] CARDIAC STRESS/REST INJECTION Patient Name: DEYSI HERNANDEZ STUDY: MYOCARDIAL PERFUSION STRESS TEST WITH LEXISCAN Performing facility: [facility], [address] [place] [address], [address], [place] [address] [facility] Provider: Carlene Beal MD, FACC PCP: Dr. Mariann Thompson Supervising provider: Autumn Guidry RN, FORECLOSURE FIELD INSPECTOR INDICATION: Chest discomfort Elevated troponin Hyperlipidemia HISTORY: Gender: F; Age: 61 y/o ; Height: 0 cm; Weight: 71.2968493 kg. High Cholesterol; HTN; Chest Pain; Quit smoking <1 year ago. COMPARISON: No comparison. ACCESSION NUMBER(S): [id number]; [id number]; [id number] ORDERING CLINICIAN: MARQUEZ BEAL TECHNIQUE: ONE DAY [...] Electronically signed by: WAQAR MARTINEZ MD Normal [facility] No [facility]on 01-23 [facility] Work Phone: Tobacco Screening.on 022 Fall risk assessment a) No falls within the last year [facility] 600 DO Work Phone: Tobacco use status CPHS b) No [facility] 600 DO Work Phone: MG MAMM SCREEN 3D NIRMALA CADon 09-12-2022 MG MAMM SCREEN 3D NIRMALA CAD Patient: SENGSTOCK, DEYSI F. Exam Date: 10/30/2021 : 1960 Gender:F Ordering : SHAIKH Ford THOMPSON . Admission #: [id number] Family : Order #: [id number] CLICK HERE TO VIEW EXAM RADIOLOGY REPORT [...] M.D. on 10/31/2021 at 08:52 Normal [facility] Cardiac Stress Teston 2021 Cardiac Stress Test [address], [address] [place] [address] Exercise Stress Test Patient Name: DEYSI HERNANDEZ Ordering Physician: [id number] Beal MD Study Date: 10/17/2021 Reading Physician: [id number] Newman MD, [facility] MRN/PID: [id number] Supervising Physician: [id number] Newman MD, [facility] Accession/Order#: [id number] Referring Physician: [id number] BEAL Date of : 1960 PCP: Mariann THOMPSON Gender: M Fellow: Height: 162.56 cm Nurse: Jackie Shen RN Weight: 68.95 kg [employer] Developer: KYLE BSA: 1.74 m2 Technologist: BMI: 26.09 kg/m2 Additional Staff: Age: 61 years cc report to: Patient Location: cc report to: [id number] Marquez Beal MD Study Type: Cardiac Stress Test Diagnosis/ICD: R07.89-Other chest pain Indication: Chest Pain Atypical Procedure/CPT: Stress Test Interpretation-[id number]; Stress Test Supervision-[id number] Falls Risk: Low: Patient has low risk [...] The adequate level of stress was achieved. [id number] Jaycob Newman MD, FACC Electronically signed on 10/23/2021 at 12:29:13 PM Final [facility] Cardiac Stress Test Please click on the link to view the study images [facility] Work Phone: Cardiac Stress Test MP-No [facility] 250 DO Work Phone: Creatinine and Glomerular fi ltration rate.predicted panel (S/P/Bld)Ordered By: Marquez Beal on 09-18-2021 Creatinine [Mass/Vol] 1.10 mg/dL 0.44-1.03 [facility] Estimated glomerular filtrat ion rate (GFR) non- AmericanOrdered By: Marquez Beal on 09-18-2021 GFR/1.73 sq M.predicted among non-blacks MDRD (S/P/Bld) [Vol rate/Area] 51 mL/Min [facility] No Panel InformationOrdered By: Marquez Beal on 09-18-2021 Estimated GFR () > 60 mL/Min [facility] Comment on above: GFR estimated refere nce range: According to KDOQI guidelines, <60 ml/min/1.73m2 is sufficient to diagnose a patient with chronic kidney disease. Pharmacy Creatinine Clearance (Chem N/A [facility] No Panel Informationon 09-18 9.8\S\9.8 Normal 8.2-10.2 [facility] 250 DO Work Phone: Comment on above: PERFORMED BY:[address] [address] [place], [place] [phone] MEDICAL DIRECTORJERAMY CALDWELL M.D. 25.1\S\25.1 Normal 22.0-30.0 [facility] 250 DO Work Phone: 100\S\100 Normal 95-114 [facility] 250 DO Work Phone: 3.9\S\3.9 Normal 3.5-5.1 [facility] 250 DO Work Phone: 138\S\138 Normal 136-146 [facility] 250 DO Work Phone: > 60 Normal [facility] 250 DO Work Phone: Comment on above: GFR estimated refere nce range: According to KDOQI guidelines, <60 ml/min/1.73m2 is sufficient to diagnose a patient with chronic kidney disease. 51\S\51 Normal [facility] [facility] 250 DO Work Phone: 1.10\S\1.10 above high threshold 0.44-1.03 [facility] [facility] 250 DO Work Phone: 15\S\15 Normal 9-23 [facility] [facility] 250 DO Work Phone: 95\S\95 Normal 70-100 [facility] [place] 250 DO Work Phone: Comment on above: Random Glucose Refer ence Range is dependent on time and content of last meal. Glucose of more than 200 mg/dL in a nonstressed, ambulatory subject supports the diagnosis of Diabetes Mellitus. ADA recommended reference range Serum or plasma calcium teagan urement (mass/volume)Ordered By: Marquez Beal on 09-18-2021 Calcium [Mass/Vol] 9.8 mg/dL 8.2-10.2 [facility] Serum or plasma chloride sophia surement (moles/volume)Ordered By: Marquez Beal on 09-18-2021 Chloride [Moles/Vol] 100 mmol/L 95-114 [facility] Serum or plasma glucose teagan urement (mass/volume)Ordered By: Marquez Beal on 09-18-2021 Glucose [Mass/Vol] 95 mg/dL 70-100 [facility] Comment on above: ADA recommended refe rence range Random Glucose Reference Range is dependent on time and content of last meal. Glucose of more than 200 mg/dL in a nonstressed, ambulatory subject supports the diagnosis of Diabetes Mellitus. Serum or plasma potassium me asurement (moles/volume)Ordered By: Marquez Beal on 09-18-2021 Potassium [Moles/Vol] 3.9 mmol/L 3.5-5.1 [facility] Serum or plasma sodium measu rement (moles/volume)Ordered By: Marquez Beal on 09-18-2021 Sodium [Moles/Vol] 138 mmol/L 136-146 [facility] Serum or plasma total carbon dioxide measurement (moles/volume)Ordered By: Marquez Beal on 09-18-2021 CO2 [Moles/Vol] 25.1 mmol/L 22.0-30.0 [facility] Serum or plasma urea nitroge n measurement (mass/volume)Ordered By: Marquez Beal on 09-18-2021 Urea nitrogen [Mass/Vol] 15 mg/dL 9-23 [facility] Tobacco Screening.on 022 Adult depression screening assessment No [facility] 250 DO Work Phone: Fall risk assessment a) No falls within the last year [facility] 250 DO Work Phone: Tobacco use status CPHS a) Yes [facility] 250 DO Work Phone: Tobacco Screening. Yes [facility] 250 DO Work Phone: Bacterial blood cultureOrder ed By: Bong Bansal on 08-19-2021 Bacteria identified Cx Nom (Bld) NO GROWTH 5 DAYS [facility] Basophils Auto (Bld) [#/Vol] Ordered By: Alaina Arce on 08-17-2021 Basophils (Bld) [#/Vol] 0.1 10*3/uL 0.0-0.2 [facility] Basophils/100 WBC Auto (Bld) Ordered By: Alaina Arce on 08-17-2021 Basophils/100 WBC (Bld) 0.7 % . [facility] Blood hemoglobin measurement (mass/volume)Ordered By: Alaina Arce on 08-17-2021 Hemoglobin (Bld) [Mass/Vol] 15.0 g/dL 11.8-15.4 [facility] Blood leukocytes automated c ount (number/volume)Ordered By: Alaina Arce on 08-17-2021 WBC (Bld) [#/Vol] 10.0 10*3/uL 4.5-11.0 [facility] Creatinine and Glomerular fi ltration rate.predicted panel (S/P/Bld)Ordered By: Alaina Arce on 08-17-2021 Creatinine [Mass/Vol] 1.27 mg/dL 0.44-1.03 [facility] Eosinophils Auto (Bld) [#/Vo l]Ordered By: Alaina Arce on 08-17-2021 Eosinophils (Bld) [#/Vol] 0.2 10*3/uL 0.0-0.45 [facility] Eosinophils/100 WBC Auto (Bl d)Ordered By: Alaina Arce on 08-17-2021 Eosinophils/100 WBC (Bld) 1.8 % . [facility] Erythrocyte distribution wid th Auto (RBC) [Ratio]Ordered By: Alaina Arce on 08-17-2021 Erythrocyte distribution width (RBC) [Ratio] 12.7 % 11.9-15.3 [facility] Estimated glomerular filtrat ion rate (GFR) non- AmericanOrdered By: Alaina Arce on 08-17-2021 GFR/1.73 sq M.predicted among non-blacks MDRD (S/P/Bld) [Vol rate/Area] 43 mL/Min [facility] Hematocrit Auto (Bld) [Volum e fraction]Ordered By: Alaina Arce on 08-17-2021 Hematocrit (Bld) [Volume fraction] 42.6 % 34.0-46.4 [facility] - Hematology and Cell countsOrdered By: Alaina Arce on 08-17-2021 Nucleated RBC/100 WBC (Bld) [Ratio] 0.0 % 0-0.5 [facility] Lymphocytes Auto (Bld) [#/Vo l]Ordered By: Alaina Arce on 08-17-2021 Lymphocytes (Bld) [#/Vol] 2.4 10*3/uL 1.00-4.8 [facility] Lymphocytes/100 WBC Auto (Bl d)Ordered By: Alaina Arce on 08-17-2021 Lymphocytes/100 WBC (Bld) 23.7 % . [facility] MCH Auto (RBC) [Entitic mass ]Ordered By: Alaina Arce on 08-17-2021 MCH (RBC) [Entitic mass] 31.0 pg 24.7-34.3 [facility] MCHC Auto (RBC) [Mass/Vol]Or dered By: Alaina Arce on 08-17-2021 MCHC (RBC) [Mass/Vol] 35.3 g/dL 32.0-35.0 [facility] MCV Auto (RBC) [Entitic vol] Ordered By: Alaina Arce on 08-17-2021 MCV (RBC) [Entitic vol] 87.8 fL 80-100 [facility] Monocytes Auto (Bld) [#/Vol] Ordered By: Alaina Arce on 08-17-2021 Monocytes (Bld) [#/Vol] 1.0 10*3/uL 0.0-0.8 [facility] Monocytes/100 WBC Auto (Bld) Ordered By: Alaina Arce on 08-17-2021 Monocytes/100 WBC (Bld) 10.2 % . [facility] Neutrophils Auto (Bld) [#/Vo l]Ordered By: Alaian Arce on 08-17-2021 Neutrophils (Bld) [#/Vol] 6.3 10*3/uL 1.8-7.7 [facility] Neutrophils/100 WBC Auto (Bl d)Ordered By: Alaina Arce on 08-17-2021 Neutrophils/100 WBC (Bld) 63.6 % . [facility] No Panel InformationOrdered By: Alaina Arce on 08-17-2021 Estimated GFR () 52 mL/Min [facility] Comment on above: GFR estimated refere nce range: According to KDOQI guidelines, <60 ml/min/1.73m2 is sufficient to diagnose a patient with chronic kidney disease. Pharmacy Creatinine Clearance (Chem 47.54 [facility] Platelet mean volume Auto (B ld) [Entitic vol]Ordered By: Alaina Arce on 08-17-2021 Platelet mean volume (Bld) [Entitic vol] 8.5 fL 6.3-10.7 [facility] Platelets Auto (Bld) [#/Vol] Ordered By: Alaina Arce on 08-17-2021 Platelets (Bld) [#/Vol] 241 10*3/uL 150-450 [facility] RBC Auto (Bld) [#/Vol]Ordere d By: Alaina Arce on 08-17-2021 RBC (Bld) [#/Vol] 4.85 10*6/uL 3.60-5.00 [facility] Serum or plasma calcium teagan urement (mass/volume)Ordered By: Alaina Arce on 08-17-2021 Calcium [Mass/Vol] 8.9 mg/dL 8.2-10.2 [facility] Serum or plasma chloride sophia surement (moles/volume)Ordered By: Alaina Arce on 08-17-2021 Chloride [Moles/Vol] 101 mmol/L 95-114 [facility] Serum or plasma glucose teagan urement (mass/volume)Ordered By: Alaina Arce on 08-17-2021 Glucose [Mass/Vol] 132 mg/dL 70-100 [facility] Comment on above: ADA recommended refe rence range Random Glucose Reference Range is dependent on time and content of last meal. Glucose of more than 200 mg/dL in a nonstressed, ambulatory subject supports the diagnosis of Diabetes Mellitus. Serum or plasma potassium me asurement (moles/volume)Ordered By: Alaina Arce on 08-17-2021 Potassium [Moles/Vol] 2.9 mmol/L 3.5-5.1 [facility] Comment on above: Results called at 0721 on 08/17/21 Serum or plasma sodium measu rement (moles/volume)Ordered By: Alaina Arce on 08-17-2021 Sodium [Moles/Vol] 137 mmol/L 136-146 [facility] Serum or plasma total carbon dioxide measurement (moles/volume)Ordered By: Alaina Arce on 08-17-2021 CO2 [Moles/Vol] 25.3 mmol/L 22.0-30.0 [facility] Serum or plasma urea nitroge n measurement (mass/volume)Ordered By: Alaina Arce on 08-17-2021 Urea nitrogen [Mass/Vol] 17 mg/dL 9-23 [facility] Albumin [Mass/volume] in Ser um or PlasmaOrdered By: Alania Arce on 08-16-2021 Albumin [Mass/Vol] 3.1 g/dL 3.2-5.5 [facility] Globulin Calc (S) [Mass/Vol] Ordered By: Alaina Arce on 08-16-2021 Globulin (S) [Mass/Vol] 3.0 g/dL [facility] Protein [Mass/volume] in Ser um or PlasmaOrdered By: Alaina Arce on 08-16-2021 Protein [Mass/Vol] 6.1 g/dL 6.1-7.9 [facility] Serum or plasma alanine spencer otransferase measurement without P-5'-P (enzymatic activiOrdered By: Alaina Arce on 08-16-2021 ALT No additional P-5'-P [Catalytic activity/Vol] 57 U/L 10-60 [facility] Serum or plasma albumin/glob ulin mass ratioOrdered By: Alaina Arce on 08-16-2021 Albumin/Globulin [Mass ratio] 1.0 {ratio} [facility] Serum or plasma alkaline calvni sphatase measurement (enzymatic activity/volume)Ordered By: Alaina Arce on 08-16-2021 ALP [Catalytic activity/Vol] 76 U/L 32-92 [facility] Serum or plasma aspartate am inotransferase measurement (enzymatic activity/volume)Ordered By: Alaina Arce on 08-16-2021 AST [Catalytic activity/Vol] 47 U/L 10-42 [facility] Serum or plasma total biliru bin measurement (mass/volume)Ordered By: Alaina Arce on 08-16-2021 Bilirubin [Mass/Vol] 1.5 mg/dL 0.3-1.2 [facility] Comment on above: Samples from patient s who have taken Naproxen have shown spurious elevation in Total Bilirubin levels. A metabolite of Naproxen, O-desmethylnaproxen, has been shown to interfere with the Jess method for measuring Total Bilirubin. Amphetamine Screen Ql (U)Ord ered By: Alaina Arce on 08-15-2021 Amphetamines Ql (U) Negative Negative [facility] Antithrombin measurement (un its/volume) in platelet poor plasma by chromogenic methodOrdered By: Janet Hamm on 08-15-2021 Antithrombin Chromogenic method Qn (PPP) 113 % 75-135 [facility] Comment on above: Direct Xa inhibitor anticoagulants such as rivaroxaban, apixaban and edoxaban will lead to spuriously elevated antithrombin activity levels possibly masking a deficiency. Barbiturates [Presence] in U rineOrdered By: Alaina Arce on 08-15-2021 Barbiturates Ql (U) Negative Negative [facility] Benzodiazepines [Presence] i n UrineOrdered By: Alaina Arce on 08-15-2021 Benzodiazepines Ql (U) Negative Negative [facility] Beta 2 glycoprotein 1 IgG Ab [Units/volume] in SerumOrdered By: Janet Hamm on 08-15-2021 Beta 2 glycoprotein 1 IgG Qn (S) <9 0-20 [facility] Comment on above: Result Units: GPI [...] glycoprotein 1 IgM Qn (S) <9 0-32 [facility] Comment on above: Result Units: GPI [...] 08-15-2021 Cannabinoids Screen Ql (U) Negative Negative [facility] Comment on above: These are unconfirme [...] IA Qn (S) <9 GPL U/mL 0-14 [facility] Comment on above: Negative: <15 Indeterminate: 15 - 20 Low-Med Positive: >20 - 80 High Positive: >80 Cardiolipin IgM Ab [Units/vo lume] in Serum by ImmunoassayOrdered By: Janet Hamm on 08-15-2021 Cardiolipin IgM IA Qn (S) 17 MPL U/mL 0-12 [facility] Comment on above: Negative: <13 Indeterminate: 13 - 20 Low-Med Positive: >20 - 80 High Positive: >80 Cholesterol [Mass/volume] in Serum or PlasmaOrdered By: Janet Hamm on 08-15-2021 Cholesterol [Mass/Vol] 259 mg/dL 140-200 [facility] Comment on above: Chol less than 200 m g/dl low risk Chol 201-239 mg/dl borderline risk Chol 240 mg/dl and greater high risk Cholesterol in LDL Calc [Mas s/Vol]Ordered By: Janet Hamm on 08-15-2021 Cholesterol in LDL [Mass/Vol] 176 mg/dL 0-100 [facility] Comment on above: LDL ATP III CLASSIFI CATION LDL less than 100 mg/dL Optimal LDL 100-129 mg/dL Near or above optimal LDL 130-159 mg/dL Borderline high LDL 160-189 mg/dL High LDL greater than 189 mg/dL Very high Cholesterol in VLDL Calc [Ma ss/Vol]Ordered By: Janet Hamm on 08-15-2021 Cholesterol in VLDL [Mass/Vol] 32 mg/dL [facility] Dilute Vinay's viper venom timeOrdered By: Janet Hamm on 08-15-2021 dRVVT Coag (PPP) [Time] 45.5 s 0.0-47.0 [facility] Free protein S measurementOr dered By: Janet Hamm on 08-15-2021 Protein S Free Ag IA Qn (PPP) 134 % 61-136 [facility] Functional protein C measure mentOrdered By: Janet Hamm on 08-15-2021 Protein C actual/normal Chromogenic method (PPP) [Rel catalytic activity/Vol] 158 % 73-180 [facility] Laboratory - Drug toxicology Ordered By: Alaina Arce on 08-15-2021 Opiates Ql (U) Negative Negative [facility] Lupus anticoagulant [Interpr etation] in Platelet poor plasmaOrdered By: Janet Hamm on 08-15-2021 Lupus anticoagulant (PPP) [Interp] Comment: . [facility] Comment on above: No lupus anticoagula nt was detected. No Panel InformationOrdered By: Janet Hamm on 08-15-2021 Activated Protein C Resist Confirm 2.6 ratio 2.2-3.5 [facility] Comment on above: The APCR result may be falsely increased (masking an abnormal, low APCR result) in patients on direct Xa inhibitor (e.g., rivaroxaban, apixaban, edoxaban) or a direct thrombin inhibitor (e.g., dabigatran) anticoagulant therapy due to assay interference by these drugs. Phencyclidine Screen Ql (U)O rdered By: Alaina Arce on 08-15-2021 Phencyclidine Ql (U) Negative Negative [facility] Plasminogen measurementOrder ed By: Janet Hamm on 08-15-2021 Plasminogen actual/normal Chromogenic method (PPP) [Rel catalytic activity/Vol] 119 % 70-150 [facility] Platelet poor plasma ratio o f lupus anticoagulant-sensitive activated partial thromboOrdered By: Janet Hamm on 08-15-2021 aPTT.lupus sensitive.excess phospholipid actual/normal Coag (PPP) [Relative time] 38.6 sec 0.0-47.6 [facility] Prothrombin gene [id number] mut ation detectionOrdered By: Janet Hamm on 08-15-2021 F2 gene targeted mutation analysis [employer] Nom (Bld/Tiss) See comment . [facility] Comment on above: Result: c.*97G>A - [...] the F2 gene and a c.1601G>A (p. [id number]) variant in the F5 gene (commonly referred to as Factor V Leiden) have an approximately 20- fold increased risk for venous thromboembolism. Risks are likely to be even higher in more complex genotype combinations involving the F2 c.*97G>A variant and Factor V Leiden (PMID: 84132643). Additional risk factors include but are not [...] health care providers to discuss results at [phone] Test Details: Variant analyzed: c.*97G>A, previously referred to as [id number] Methods/Limitations: DNA analysis of the F2 gene [...] developed and its performance characteristics determined by [employer]. It has not been cleared or approved by the Food and Drug Administration. References: Taj S, Briana MCLAUGHLIN, Gilberto R, Bogdan WW, Yanick JH; [employer] Professional Practice and Guidelines Committee. Addendum: [place] [employer] consensus statement on factor V Leiden mutation testing. Zoë Med. 2020Apr 22. doi: 10.1038/h76612-696-69273-d. PMID: 71363282. Edgardo KRISHNA. Prothrombin Thrombophilia. 2005Sep 11 [Updated 2020Mar 24]. In: Rober MP, Thaddeus HH, Iman RA, et al., editors. Aliyah(R) [Internet]. [place] ([place]): [facility]; 7154-5411. Available from: https://www.ncbi.nlm.nih.gov/books/EZD1599/ Ariel S, Briana MCLAUGHLIN, Aakash X, Grady B, Vidal EB, Siobhan P, Anny CS; [employer] Laboratory [employer] Vertical Committee. Venous thromboembolism laboratory testing (factor V Leiden and factor II c.*97G>A), 2018 update: a technical standard of the [place] [employer] (ACMG). Zoë Med. 2018 Jan;20(12):2231-5009. doi: 10.1038/x44320-162-4691-a. Epub 2017Nov 22. PMID: 09236868. Evon Negron, PhD, [facility] Otis Guthrie, PhD, [facility]AC[facility] Rehan Goodson, PhD, [employer] Nick Bergeron, PhD, [employer] W Mona Pagan, PhD, [employer] Vee Mera, PhD, [employer] Gregoria Carrasco, PhD, FAC Performed at: - [facility] [id number] Registered Nurses: Harshad Acosta PhD, Phone: [phone] Performed at: - [address] [id number] Registered Nurses: Veronica Ring MD, Phone: [phone] Performed at: [facility] [address] [place], [place] [id number] Registered Nurses: Becky Cabezas [facility], Phone: [phone] Serum or plasma high density lipoprotein (HDL) cholesterol measurementOrdered By: Janet Hamm on 08-15-2021 Cholesterol in HDL [Mass/Vol] 50 mg/dL 35-85 [facility] Comment on above: HDL CHOL ATP-III CLA SSIFICATION Cardiovascular Risk HDL > or equal to 60 mg/dL LOW HDL < 40 mg/dL HIGH Serum or plasma homocysteine measurement (moles/volume)Ordered By: Janet Hamm on 08-15-2021 Homocysteine [Moles/Vol] 12.8 umol/L 0.0-14.5 [facility] Serum or plasma total choles terol/high density lipoprotein (HDL) cholesterol mass ratOrdered By: Janet Hamm on 08-15-2021 Cholesterol.total/Chol esterol in HDL [Mass ratio] 5.2 {ratio} <5.0 [facility] Triglyceride [Mass/volume] i n Serum or PlasmaOrdered By: Janet Hamm on 08-15-2021 Triglyceride [Mass/Vol] 164 mg/dL 35-149 [facility] Comment on above: TRIG ATP III CLASSIF ICATION TRIG less than 150 mg/dL Normal TRIG 150-199 mg/dL Borderline high TRIG 200-500 mg/dL High TRIG greater than 500 mg/dL Very high Standard traceable to the Center for Disease Conrtrol and Prevention (CDC) test method. Urine cocaine detectionOrder ed By: Alaina Arce on 08-15-2021 Cocaine Ql (U) Negative Negative [facility] Urine culture routineOrdered By: Alaina Arce on 08-15-2021 Bacteria identified Cx Nom (U) 2 Days [facility] aPTT.lupus sensitive (LA scr een)Ordered By: Janet Hamm on 08-15-2021 aPTT.lupus sensitive Coag (PPP) [Time] 35.2 sec 0.0-51.9 [facility] aPTT.lupus sensitive/aPTT.sheryl pus sensitive W excess phospholipid (screen to confirm raOrdered By: Janet Hamm on 08-15-2021 aPTT.lupus sensitive/aPTT.lupus sensitive W excess phospholipid Coag (PPP) [Ratio] 0.94 Ratio 0.00-1.34 [facility] Activated partial thrombopla stin time (aPTT) in platelet poor plasma by coagulation aOrdered By: Bong Bansal on 08-14-2021 aPTT Coag (PPP) [Time] 28.2 s 25.1-36.5 [facility] Bacterial blood cultureOrder ed By: Bong Bansal on 08-14-2021 Bacteria identified Cx Nom (Bld) NO GROWTH 5 DAYS [facility] Creatinine [Mass/volume] in UrineOrdered By: Alaina Arce on 08-14-2021 Creatinine (U) [Mass/Vol] 74.6 mg/dL [facility] Comment on above: No reference range e stablished Glucose Glucometer (BldC) [M ass/Vol]Ordered By: Alaina Arce on 08-14-2021 Glucose [Mass/Vol] 102 mg/dL [facility] Comment on above: Random Glucose Refer ence Range is dependent on time and content of last meal. Glucose of more than 200 mg/dL in a nonstressed, ambulatory subject supports the diagnosis of Diabetes Mellitus. Glucose mean value [Mass/vol ume] in Blood Estimated from glycated hemoglobinOrdered By: Janet Hamm on 08-14-2021 Average glucose Estimated from glycated hemoglobin (Bld) [Mass/Vol] 126 mg/dL [facility] Hemoglobin A1c percentageOrd ered By: Janet Hamm on 08-14-2021 HbA1c (Bld) [Mass fraction] 6.0 % 4.3-5.6 [facility] Comment on above: Increased risk for d iabetes: 5.7 - 6.4 diabetes: >6.4 glycemic control for adults with diabetes: <7.0 Laboratory - Chemistry and C hemistry - challengeOrdered By: Alaina Arce on 08-14-2021 Magnesium [Mass/Vol] 2.3 mg/dL 1.6-2.6 [facility] Laboratory - CoagulationOrde red By: Bong Bansal on 08-14-2021 PT Coag (PPP) [Time] 11.8 s 9.0-12.9 [facility] Platelet poor plasma interna tional normalized ratio (INR) by coagulation assay (relatOrdered By: Bong Bansal on 08-14-2021 INR Coag (PPP) [Relative time] 1.1 {INR} [facility] Comment on above: INR Therapeutic Rang [...] 08-14-2021 Protein (U) [Mass/Vol] 100 mg/dL 0-9 [facility] Renin activityOrdered By: Emma Arce on 08-14-2021 Renin (P) [Catalytic activity/Vol] 27.141 ng/mL/hr 0.167-5.38 0 [facility] Comment on above: This test was develo ped and its performance characteristics determined by [employer]. It has not been cleared or approved by the Food and Drug Administration. Performed at: [facility] - [facility] [address] [id number] Registered Nurses: Veronica Ring MD, Phone: [phone] Serum or plasma aldosterone measurement (mass/volume)Ordered By: Alaina Arce on 08-14-2021 Aldosterone [Mass/Vol] 7.8 ng/dL 0.0-30.0 [facility] Comment on above: This test was develo ped and its performance characteristics determined by [employer]. It has not been cleared or approved by the Food and Drug Administration. Performed at: [facility] - [facility] [address] [id number] Registered Nurses: Veronica Ring MD, Phone: [phone] Urine protein/creatinine rat ioOrdered By: Alaina Arce on 08-14-2021 Protein/Creatinine (U) [Ratio] 1340 mg/g{Cre} 0-200 [facility] Urine sodium measurement (mo les/volume)Ordered By: Alaina Arce on 08-14-2021 Sodium (U) [Moles/Vol] 54.0 mmol/L [facility] Comment on above: No reference range e stablished AMYLASEon 08-13-2021 Amylase [Catalytic activity/Vol] 80 U/L Normal 25-115 [facility] Comment on above: Performed By: #### A MY, CMP, LIPA #### [facility] [address] [address] [address] Moreno Amato Automated erythrocytes count in urine sediment (number/area)Ordered By: Alaina Arce on 08-13-2021 RBC Auto (Urine sed) [#/Area] 5-9 [HPF] 0-4 [facility] Automated leukocytes count i n urine sediment (number/area)Ordered By: Alaina Arce on 08-13-2021 WBC Auto (Urine sed) [#/Area] 20-49 [HPF] 0-4 [facility] Bilirubin Test strip Ql (U)O rdered By: Alaina Arce on 08-13-2021 Bilirubin Ql (U) Negative Negative [facility] CBC AUTO DIFFon 08-13-2021 BASO # 0.1 103/ul Normal 0.0-0.1 [facility] Comment on above: Performed By: #### C BC #### [facility] [address] [address] [address] Moreno Amato Basophils/100 WBC (Bld) 0.6 % Normal 0.2-2.0 [facility] Comment on above: Performed By: #### C BC #### [facility] [address] [address] [address] Moreno Amato EO # 0.1 103/ul Normal 0.0-0.7 [facility] Comment on above: Performed By: #### C BC #### [facility] [address] [address] [address] Moreno Amato Eosinophils/100 WBC (Bld) 0.6 % Critically low 0.9-7.0 [facility] Comment on above: Performed By: #### C BC #### [facility] [address] [place] [address] Dr. Moreno Amato Erythrocyte distribution width (RBC) [Ratio] 11.9 % Normal 11.0-15.0 [facility] Comment on above: Performed By: #### C BC #### [facility] [address] [place] [address] Dr. Moreno Amato Hematocrit (Bld) [Volume fraction] 51.0 % Critically high 36.0-48.0 [facility] Comment on above: Performed By: #### C BC #### [facility] [address] [place] [address] Dr. Moreno Amato Hemoglobin (Bld) [Mass/Vol] 18.2 g/dL Critically high 12.0-16.0 [facility] Comment on above: Performed By: #### C BC #### [facility] [address] [place] [address] Dr. Moreno Amato IG # 0.04 10e3/ul Critically high 0.00-0.03 [facility] Comment on above: Performed By: #### C BC #### [facility] [address] [place] [address] Dr. Moreno Amato IG % 0.3 % Normal 0.0-0.5 [facility] Comment on above: Performed By: #### C BC #### [facility] [address] [place] [address] Dr. Moreno Amato LYMPH # 2.2 103/ul Normal 1.2-3.8 [facility] Comment on above: Performed By: #### C BC #### [facility] [address] [place] [address] Dr. Moreno Amato Lymphocytes/100 WBC (Bld) 17.1 % Critically low 20.5-60.0 [facility] Comment on above: Performed By: #### C BC #### [facility] [address] [place] [address] Dr. Moreno Amato MANUAL DIFF REQ NO Normal [facility] Comment on above: Performed By: #### C BC #### [facility] [address] [place] [address] Dr. Moreno Amato MCH (RBC) [Entitic mass] 30.4 pg Normal 26.7-34.0 [facility] Comment on above: Performed By: #### C BC #### [facility] [address] [address] [address] Moreno Amato MCHC (RBC) [Mass/Vol] 35.7 g/dL Critically high 29.9-35.2 [facility] Comment on above: Performed By: #### C BC #### [facility] [address] [address] [address] Moreno Amato MCV (RBC) [Entitic vol] 85.1 fL Normal 81.0-99.0 [facility] Comment on above: Performed By: #### C BC #### [facility] [address] [address] [address] Moreno Amato MONO # 1.3 103/ul Critically high 0.3-0.8 [facility] Comment on above: Performed By: #### C BC #### [facility] [address] [address] [address] Moreno Amato Monocytes/100 WBC (Bld) 10.0 % Normal 1.7-12.0 [facility] Comment on above: Performed By: #### C BC #### [facility] [address] [address] [address] Moreno Amato NEUT # 9.3 103/ul Critically high 1.4-6.5 [facility] Comment on above: Performed By: #### C BC #### [facility] [address] [address] [address] Moreno Amato Neutrophils/100 WBC (Bld) 71.4 % Normal 43.0-75.0 [facility] Comment on above: Performed By: #### C BC #### [facility] [address] [address] [address] Moreno Amato Platelet mean volume (Bld) [Entitic vol] 9.8 fL Normal 9.5-13.5 [facility] Comment on above: Performed By: #### C BC #### [facility] [address] [address] [address] Moreno Amato PLT 242 103/ul Normal 150-450 [facility] Comment on above: Performed By: #### C BC #### [facility] [address] [place], [place] [address] Dr. Moreno Amato RBC 5.99 106/ul Critically high 4.20-5.[address] [facility] Comment on above: Performed By: #### C BC #### [facility] [address] [place], [place] [address] Dr. Moreno Amato WBC 13.0 103/ul Critically high 4.0-11.[address] [facility] Comment on above: Performed By: #### C BC #### [facility] [address] [place], [place] [address] ABD/PELVIS WO CONon [...] LIPA #### [facility] [address] [place] [address] Dr. Moreno Amato Color Auto (U)Ordered By: Emma Arce on 08-13-2021 Color (U) Yellow Yellow [facility] Covid-19 PCR (CVDTBH)on 07-20 SARS-CoV-2 [...] for this test is supported by the [employer] Agent of Health and Human Service's declaration that [...] used). Performed By: #### C VDTB #### [facility] [address] [place] [address] Dr. Moreno Amato ER URINE PROFILEon 2 Bilirubin Ql (U) Negative Normal NEGATIVE [facility] Comment on above: Performed By: #### Rupal ALAN UMICRO #### [facility] [address] [place] [address] Dr. Moreno Amato Clarity (U) CLEAR Normal CLEAR [facility] Comment on above: Performed By: #### Rupal ALAN UMICRO #### [facility] [address] [place] [address] Dr. Moreno Amato Color (U) LT. YELLOW Normal YELLOW [facility] Comment on above: Performed By: #### Rupal ALAN UMICRO #### [facility] [address] [place] [address] Dr. Moreno SHEPHERDD A micrscopic examina tion will be performed if indicated. Normal [facility] Comment on above: Performed By: #### Rupal ALAN UMICRO #### [facility] [address] [place] [address] Dr. Moreno Amato Glucose Ql (U) Negative Normal NEGATIVE [facility] Comment on above: Performed By: #### Rupal ALAN UMICRO #### [facility] [address] [place] [address] Dr. Moreno Amato Hemoglobin Ql (U) MODERATE Abnormal NEGATIVE [facility] Comment on above: Performed By: #### Rupal ALAN UMICRO #### [facility] [address] [place] [address] Dr. Moreno Amato Ketones Ql (U) Negative Normal NEGATIVE [facility] Comment on above: Performed By: #### SULAIMAN FRANCISCORO #### [facility] [address] [place] [address] Dr. Moreno Amato LEUKOCYTES SMALL Abnormal NEGATIVE [facility] Comment on above: Performed By: #### SULAIMAN FRANCISCORO #### [facility] [address] [place] [address] Dr. Moreno Amato Nitrite Ql (U) Positive Abnormal NEGATIVE [facility] Comment on above: Performed By: #### SULAIMAN FRANCISCORO #### [facility] [address] [place] [address] Dr. Moreno Amato pH (U) 6.0 [pH] Normal 5-9 [facility] Comment on above: Performed By: #### SULAIMAN FRANCISCORO #### [facility] [address] [place] [address] Dr. Moreno Amato SPEC GRAVITY 1.020 Normal 1.005-<=1. 025 [facility] Comment on above: Performed By: #### SULAIMAN FRANCISCORO #### [facility] [address] [place] [address] Dr. Moreno Amato UA PROTEIN >300 Abnormal NEGATIVE/ TRACE [facility] Comment on above: Performed By: #### SULAIMAN FRANCISCORO #### [facility] [address] [place] [address] Dr. Moreno Amato UR MICRO IND INDICATED Normal [facility] Comment on above: Performed By: #### NAOMI FRANCISCO #### [facility] [address] [place] [address] Dr. Moreno Amato Urobilinogen Qn (U) 0.2 {Lat[place]'U}/dL Normal 0.2 - 1. 0 [facility] Comment on above: Performed By: #### SULAIMAN FRANCISCORO #### [facility] [address] [place] [address] Dr. Moreno Amato Ketones Auto test strip (U) [Mass/Vol]Ordered By: Alaina Arce on 08-13-2021 Ketones (U) [Mass/Vol] Negative Negative [facility] LACTATE/LACTIC ACIDon 2021 Lactate [Moles/Vol] 1.1 mmol/L Normal 0.4-1.9 [facility] Comment on above: Performed By: #### A MY, CMP, LIPA #### [facility] [address] [place], [place] [address] Dr. Moreno Amato LIPASEon 08-13-2021 Lipase [Catalytic activity/Vol] 524.0 U/L Critically high 73.0-393.0 [facility] Comment on above: Performed By: #### A MY, CMP, LIPA #### [facility] [address] [address] [address] Moreno Amato Laboratory - Chemistry and C hemistry - challengeOrdered By: Alaina Arce on 08-13-2021 Lactate [Moles/Vol] 1.6 mmol/L 0.5-2.2 [facility] - UrinalysisOrder ed By: Alaina Arce on 08-13-2021 Hyaline casts LM Ql (Urine sed) 9-19 [LPF] 0-8 [facility] Nitrite Test strip Ql (U)Ord ered By: Alaina Arce on 08-13-2021 Nitrite Ql (U) Positive Negative [facility] POINT OF CARE GLUCOSEon 07-20 Glucose [Mass/Vol] 129 mg/dL Critically high 74-106 [facility] Comment on above: Performed By: #### A MY, CMP, LIPA #### [facility] [address] [address] [address] Moreno Amato PROF 14(COMP METB)on 022 Albumin [Mass/Vol] 3.4 g/dL Normal 3.4-5.[address] [facility] Comment on above: Performed By: #### A MY, CMP, LIPA #### [facility] [address] [address] [address] Moreno Amato Albumin/Globulin [Mass ratio] 0.8 {ratio} Normal [facility] Comment on above: Performed By: #### A MY, CMP, LIPA #### [facility] [address] [address] [address] Moreno Amato ALP [Catalytic activity/Vol] 105 U/L Normal 46-116 [facility] Comment on above: Performed By: #### A MY, CMP, LIPA #### [facility] [address] [address] [address] Moreno Amato ALT [Catalytic activity/Vol] 22 U/L Normal 14-59 [facility] Comment on above: Performed By: #### A MY, CMP, LIPA #### [facility] [address] [address] [address] Moreno Amato Anion gap [Moles/Vol] 11.6 mmol/L Normal [facility] Comment on above: Performed By: #### A MY, CMP, LIPA #### [facility] [address] [address] [address] Moreno Amato AST [Catalytic activity/Vol] 22 U/L Normal 15-37 [facility] Comment on above: Performed By: #### A MY, CMP, LIPA #### [facility] [address] [address] [address] Moreno Amato Bilirubin [Mass/Vol] 0.7 mg/dL Normal 0.2-1.0 [facility] Comment on above: Performed By: #### A MY, CMP, LIPA #### [facility] [address] [address] [address] Moreno Amato Calcium [Mass/Vol] 9.6 mg/dL Normal 8.5-10.[address] [facility] Comment on above: Performed By: #### A MY, CMP, LIPA #### [facility] [address] [address] [address] Moreno Amato Chloride [Moles/Vol] 97 mmol/L Critically low 98-107 [facility] Comment on above: Performed By: #### A MY, CMP, LIPA #### [facility] [address] [address] [address] Moreno Amato CO2 [Moles/Vol] 31.2 mmol/L Normal 21.0-32.0 [facility] Comment on above: Performed By: #### A MY, CMP, LIPA #### [facility] [address] [address] [address] Moreno Amato Creatinine [Mass/Vol] 1.64 mg/dL Critically high 0.55-1.02 [facility] Comment on above: Performed By: #### A MY, CMP, LIPA #### [facility] [address] [place] [address] Dr. Moreno Amato EGFR-AF ZIMBABWEAN 39 mL/min/1.73m2 Critically low >=60 [facility] Comment on above: Performed By: #### A MY, CMP, LIPA #### [facility] [address] [place] [address] Dr. Moreno Amato EGFR-NON AF ZIMBABWEAN 32 mL/min/1.73m2 Critically low >=60 [facility] Comment on above: Performed By: #### A MY, CMP, LIPA #### [facility] [address] [place] [address] Dr. Moreno Amato Globulin (S) [Mass/Vol] 4.1 g/dL Normal [facility] Comment on above: Performed By: #### A MY, CMP, LIPA #### [facility] [address] [place] [address] Dr. Moreno Amato Glucose [Mass/Vol] 110 mg/dL Critically high 74-106 [facility] Comment on above: Performed By: #### A MY, CMP, LIPA #### [facility] [address] [place] [address] Dr. Moreno Amato Potassium [Moles/Vol] 2.8 mmol/L Critically low 3.5-5.1 [facility] Comment on above: Performed By: #### A MY, CMP, LIPA #### [facility] [address] [place] [address] Dr. Moreno Amato Protein [Mass/Vol] 7.5 g/dL Normal 6.4-8.[address] [facility] Comment on above: Performed By: #### A MY, CMP, LIPA #### [facility] [address] [address] [address] Moreno Amato Sodium [Moles/Vol] 137 mmol/L Normal 136-[address] [facility] Comment on above: Performed By: #### A MY CMP, LIPA #### [facility] [address] [address] [address] Moreno Amato Urea nitrogen [Mass/Vol] 26.0 mg/dL Critically high 7.0-18.0 [facility] Comment on above: Performed By: #### A MY CMP, LIPA #### [facility] [address] [address] [address] Moreno Amato Urea nitrogen/Creatinine [Mass ratio] 15.9 mg/mg Normal [facility] Comment on above: Performed By: #### A TOMMY CMP, LIPA #### [facility] [address] [address] [address] Moreno Amato Protein Auto test strip (U) [Mass/Vol]Ordered By: Alaina Arce on 08-13-2021 Protein (U) [Mass/Vol] mg/dL Negative [facility] Specific gravity Auto test s trip (U) [Rel density]Ordered By: Alaina Arce on 08-13-2021 Specific gravity (U) [Rel density] 1.017 1.001-1.03 0 [facility] Squamous epithelial cells de tection in urine sediment by light microscopyOrdered By: Alaina Arce on 08-13-2021 Epithelial cells.squamous LM Ql (Urine sed) 3-4 [HPF] 0-2 [facility] TROPONIN, HIGH SENSITIVITYon 08-13-2021 HSTROP 91.0 pg/mL Critically high 4.0-51.3 [facility] Comment on above: Result Comment: CUT- OFF POINTS HAVE BEEN ESTABLISHED BASED ON THE FOURTH UNIVERSAL DEFINITIONS OF MYOCARDIAL INFARCTION. THE UPPER REFERENCE LIMIT (URL) OF TROPONIN, DEFINED THE 99TH PERCENTILE OF cTnI DISTRIBUTION IN A REFERENCE POPULATION, HAS BEEN CONFIRMED THE DECISION THRESHOLD FOR SD DIAGNOSIS. Performed By: #### A MY, CMP, LIPA #### [facility] [address] [address] [address] Moreno Amato HSTROP 109.0 pg/mL Critically high 4.0-51.[address] [facility] Comment on above: Result Comment: CUT- OFF POINTS HAVE BEEN ESTABLISHED BASED ON THE FOURTH UNIVERSAL DEFINITIONS OF MYOCARDIAL INFARCTION. THE UPPER REFERENCE LIMIT (URL) OF TROPONIN, DEFINED THE 99TH PERCENTILE OF cTnI DISTRIBUTION IN A REFERENCE POPULATION, HAS BEEN CONFIRMED THE DECISION THRESHOLD FOR SD DIAGNOSIS. Performed By: #### H STROYOMI #### [facility] [address] [place] [address] Dr. Moreno Amato Troponin I.cardiac [Mass/vol ume] in Serum or Plasma by High sensitivity methodOrdered By: Alaina Arce on 08-13-2021 Troponin I.cardiac High sensitivity method [Mass/Vol] 50 pg/mL 0-15 [facility] Comment on above: Critical value result called at 1736 on 08/13/21 URINE MICROSCOPIC ONLYon BACTERIA SMALL Abnormal NONE SEEN [facility] Comment on above: Performed By: #### Rupal ALAN UMICRO #### [facility] [address] [place] [address] Dr. Moreno Amato Bacteria identified Cx Nom (U) INDICATED Normal [facility] Comment on above: Performed By: #### Rupal ALAN UMICRO #### [facility] [address] [place] [address] Dr. Moreno Amato CAST SEEN Abnormal NONE SEEN [facility] Comment on above: Performed By: #### Rupal ALAN UMICRO #### [facility] [address] [place] [address] Dr. Moreno Amato Crystals LM Nom (Urine sed) NONE SEEN Normal NONE SEEN [facility] Comment on above: Performed By: #### E DAYANNA UMICRO #### [facility] [address] [place] [address] Dr. Moreno Amato Epithelial cells LM Ql (Urine sed) FEW Abnormal NONE SEEN /RARE [facility] Comment on above: Performed By: #### E RUR, UMICRO #### [facility] [address] [place] [address] Dr. Moreno Amato HYALINE CAST FEW Normal [facility] Comment on above: Performed By: #### NAOMI FRANCISCO #### [facility] [address] [address] [address] Moreno Amato MUCOUS NONE SEEN Normal NONE SEEN [facility] Comment on above: Performed By: #### NAOMI FRANCISCO #### [facility] [address] [address] [address] Moreno Amato RBC 2-5 Abnormal 0-2 [facility] Comment on above: Performed By: #### NAOMI FRANCISCO #### [facility] [address] [address] [address] Moreno Amato WBC 20-50 Abnormal NONE SEEN [facility] Comment on above: Performed By: #### NAOMI FRANCISCO #### [facility] [address] [address] [address] Moreno Amato Urine bacteria detection by automated methodOrdered By: Alaina Arce on 08-13-2021 Bacteria Auto Ql (U) None seen None Seen [facility] Urine clarity by refractomet ry automatedOrdered By: Alaina Arce on 08-13-2021 Clarity Refractometry automated (U) Cloudy Clear [facility] Urine culture routineOrdered By: Alaina Arce on 08-13-2021 Bacteria identified Cx Nom (U) 2 Days [facility] Urine glucose measurement by automated test strip (mass/volume)Ordered By: Alaina Arce on 08-13-2021 Glucose Auto test strip (U) [Mass/Vol] Normal mg/dL Normal [facility] Urine hemoglobin detection b y automated test stripOrdered By: Alaina Arce on 08-13-2021 Hemoglobin Auto test strip Ql (U) 1+ Negative [facility] Urine leukocyte esterase det ection by automated test stripOrdered By: Alaina Arce on 08-13-2021 Leukocyte esterase Auto test strip Ql (U) 1+ Negative [facility] Urobilinogen Auto test strip (U) [Mass/Vol]Ordered By: Alaina Arce on 08-13-2021 Urobilinogen (U) [Mass/Vol] Normal mg/dL Normal [facility] XR CHEST 1 Von 08-13-2021 XR [...] by: Vinay MANN Date: 2021-08-13 06:28 Normal [facility] pH Auto test strip (U)Ordere d By: Alaina Arce on 08-13-2021 pH (U) 5.5 [pH] 5.0-9.0 [facility] KYARA DIGITAL SCREEN SELF REFERRAL W OR WO CAD BILATERALon 12-16-2020 [facility] KYARA DIGITAL SCREEN SELF REFERRAL [...] to the patient regarding the results. [employer] recommends annual mammograms for women 40 years and older. Interpreted by: Uvaldo Read Signed by: Uvaldo Read 12/16/20 Final result Normal [facility] Vital Signs Date Time Vital Sign Value Performing Clinician Facility 01-01-2024 14:45-0500 Blood Pressure Location Dereck GROVES [facility] 01-01-2024 14:45-0500 Diastolic blood pressure 90 mm[Hg] Dereck GROVES [facility] 01-01-2024 14:45-0500 Heart rate 68 /min Dereck GROVES [facility] 01-01-2024 14:45-0500 Respiratory rate 16 /min Dereck GROVES [facility] 01-01-2024 14:45-0500 Systolic blood pressure 130 mm[Hg] Dereck GROVES [facility] 11-29-2023 13:00-0400 Diastolic blood pressure 80 mm[Hg] [facility] 11-29-2023 13:00-0400 Heart rate 68 /min [facility] 11-29-2023 13:00-0400 Mean blood pressure 92 mm[Hg] [facility] 11-29-2023 13:00-0400 Respiratory rate 16 /min [facility] 11-29-2023 13:00-0400 SaO2% (BldA) [Mass fraction] 98 % [facility] 11-29-2023 13:00-0400 Systolic blood pressure 116 mm[Hg] [facility] 11-29-2023 12:00-0400 Heart rate 71 /min [facility] 11-29-2023 12:00-0400 Respiratory rate 20 /min [facility] 11-29-2023 12:00-0400 SaO2% (BldA) [Mass fraction] 97 % [facility] 11-29-2023 12:00-0400 Systolic blood pressure 136 mm[Hg] [facility] 11-29-2023 11:53-0400 Body temperature 97.7 [degF] [facility] 11-29-2023 11:53-0400 Diastolic blood pressure 89 mm[Hg] [facility] 11-29-2023 11:53-0400 Heart rate 70 /min [facility] 11-29-2023 11:53-0400 Respiratory rate 18 /min [facility] 11-29-2023 11:53-0400 SaO2% (BldA) [Mass fraction] 96 % [facility] 11-29-2023 11:53-0400 Systolic blood pressure 149 mm[Hg] [facility] 02-14-2023 09:56-0500 Inhaled oxygen flow rate 1 L/min MD Shaikh Thompson Work Phone: [facility] 02-14-2023 08:00-0500 Body temperature 97.7 [degF] MD Shaikh Thompson Work Phone: [facility] 02-14-2023 08:00-0500 Diastolic blood pressure 69 mm[Hg] MD Shaikh Thompson Work Phone: [facility] 02-14-2023 08:00-0500 Heart rate 78 /min MD Shaikh Thompson Work Phone: [facility] 02-14-2023 08:00-0500 Respiratory rate 20 /min MD Shaikh Thompson Work Phone: [facility] 02-14-2023 08:00-0500 SaO2% (BldA) [Mass fraction] 95 % MD Shaikh Thompson Work Phone: [facility] 02-14-2023 08:00-0500 Systolic blood pressure 118 mm[Hg] MD Shaikh Thompson Work Phone: [facility] 02-14-2023 05:51-0500 Body weight 69.9 kg MD Shaikh Thompson Work Phone: [facility] 02-13-2023 12:53-0500 Body height 157.48 cm MD Shaikh Thompson Work Phone: [facility] 02-10-2023 17:00-0500 Heart rate 85 /min [facility] 02-10-2023 16:38-0500 Diastolic blood pressure 80 mm[Hg] [facility] 02-10-2023 16:38-0500 Heart rate 80 /min [facility] 02-10-2023 16:38-0500 Mean blood pressure 99 mm[Hg] [facility] 02-10-2023 16:38-0500 Respiratory rate 18 /min [facility] 02-10-2023 16:38-0500 SaO2% (BldA) [Mass fraction] 95 % [facility] 02-10-2023 16:38-0500 Systolic blood pressure 138 mm[Hg] [facility] 02-10-2023 15:40-0500 Diastolic blood pressure 92 mm[Hg] [facility] 02-10-2023 15:40-0500 Heart rate 90 /min [facility] 02-10-2023 15:40-0500 Mean blood pressure 105 mm[Hg] [facility] 02-10-2023 15:40-0500 Respiratory rate 20 /min [facility] 02-10-2023 15:40-0500 SaO2% (BldA) [Mass fraction] 94 % [facility] 02-10-2023 15:40-0500 Systolic blood pressure 132 mm[Hg] [facility] 02-10-2023 14:42-0500 Body temperature 98.24 [degF] [facility] 02-10-2023 14:42-0500 Heart rate 93 /min [facility] 02-10-2023 14:42-0500 Respiratory rate 24 /min [facility] 02-10-2023 14:00-0500 Blood Pressure Location Jaxson Johnson [facility] 02-10-2023 14:00-0500 Body temperature 96.8 [degF] [facility] 02-10-2023 14:00-0500 Diastolic blood pressure 90 mm[Hg] [facility] 02-10-2023 14:00-0500 Heart rate 88 /min Jax[facility] 02-10-2023 14:00-0500 SaO2% (BldA) [Mass fraction] 92 % [facility] 02-10-2023 14:00-0500 Systolic blood pressure 140 mm[Hg] [facility] 10-15-2022 17:36-0400 Blood Pressure Location Damion Cheek [facility] 10-15-2022 17:36-0400 Body temperature 97.34 [degF] Damion Cheek [facility] 10-15-2022 17:36-0400 Diastolic blood pressure 76 mm[Hg] Damion Cheek [facility] 10-15-2022 17:36-0400 Heart rate 60 /min Damion Cheek [facility] 10-15-2022 17:36-0400 SaO2% (BldA) [Mass fraction] 96 % Damion Cheek [facility] 10-15-2022 17:36-0400 Systolic blood pressure 122 mm[Hg] Damion Cheek [facility] 10-09-2022 14:24-0400 Body height 157.5 cm Gurmeet Ojeda MD Work Phone: [facility] 10-09-2022 14:24-0400 Body temperature 97.5 [degF] Gurmeet Ojeda MD Work Phone: [facility] 10-09-2022 14:24-0400 Body weight 71.26 kg Gurmeet Ojeda MD Work Phone: [facility] 10-09-2022 14:24-0400 Diastolic blood pressure 60 mm[Hg] Gurmeet Ojeda MD Work Phone: [facility] 10-09-2022 14:24-0400 Heart rate 60 /min Gurmeet Ojeda MD Work Phone: [facility] 10-09-2022 14:24-0400 Systolic blood pressure 91 mm[Hg] Gurmeet Ojeda MD Work Phone: [facility] 08-09-2022 14:56-0400 Body height 157.5 cm Gurmeet Ojeda MD Work Phone: [facility] 08-09-2022 14:56-0400 Body temperature 97.7 [degF] Gurmeet Ojeda MD Work Phone: [facility] 08-09-2022 14:56-0400 Body weight 72.53 kg Gurmeet Ojeda MD Work Phone: [facility] 08-09-2022 14:56-0400 Diastolic blood pressure 64 mm[Hg] Gurmeet Ojeda MD Work Phone: [facility] 08-09-2022 14:56-0400 Heart rate 65 /min Gurmeet Ojeda MD Work Phone: [facility] 08-09-2022 14:56-0400 Systolic blood pressure 98 mm[Hg] Gurmeet Ojeda MD Work Phone: [facility] 06-14-2022 12:57-0400 Blood Pressure Location Ayala SALAM [facility] 06-14-2022 12:57-0400 Diastolic blood pressure 74 mm[Hg] Ayala SALAM [facility] 06-14-2022 12:57-0400 Heart rate 80 /min Ayala SALAM [facility] 06-14-2022 12:57-0400 Respiratory rate 16 /min Ayala SALAM [facility] 06-14-2022 12:57-0400 Systolic blood pressure 118 mm[Hg] Ayala SALAM [facility] 06-06-2022 10:13-0400 Blood Pressure Location TRUDY NGUYỄN [facility] 06-06-2022 10:13-0400 Diastolic blood pressure 88 mm[Hg] TRUDY NGUYỄN [facility] 06-06-2022 10:13-0400 Heart rate 74 /min TRUDY NGUYỄN [facility] 06-06-2022 10:13-0400 Systolic blood pressure 144 mm[Hg] TRUDY NGUYỄN [facility] 05-23-2022 10:41-0400 Blood Pressure Location TRUDY NGUYỄN [facility] 05-23-2022 10:41-0400 Diastolic blood pressure 85 mm[Hg] TRUDY NGUYỄN [facility] 05-23-2022 10:41-0400 Heart rate 72 /min TRUDY NGUYỄN [facility] 05-23-2022 10:41-0400 Systolic blood pressure 127 mm[Hg] TRUDY NGUYỄN [facility] 04-11-2022 11:01-0500 Blood Pressure Location TRUDY NGUYỄN [facility] 04-11-2022 11:01-0500 Diastolic blood pressure 88 mm[Hg] TRUDY NGUYỄN [facility] 04-11-2022 11:01-0500 Heart rate 71 /min TRUDY NGUYỄN [facility] 04-11-2022 11:01-0500 Systolic blood pressure 146 mm[Hg] TRUDY NGUYỄN [facility] 03-19-2022 16:35-0500 Body height 163.83 cm Padmini Sam Other [employer] [facility] [employer] Other 03-19-2022 16:35-0500 Body mass index (BMI) [Ratio] 27.37 kg/m2 Padmini Sam Other [employer] [facility] [employer] Other 03-19-2022 16:35-0500 Body temperature 98.9 [degF] Padmini Sam Other [employer] [facility] Other 03-19-2022 16:35-0500 Body weight 73.48 kg Padmini Sam Other [facility] [employer] Other 03-19-2022 16:35-0500 Respiratory rate 18 /min Padmini Sam Other [facility] [employer] Other 03-19-2022 16:35-0500 SaO2% (BldA) [Mass fraction] 96 % Padmini Sam Other [facility] [employer] Other 03-13-2022 10:12-0500 Diastolic blood pressure 59 mm[Hg] MD Shaikh Thompson Work Phone: [facility] 03-13-2022 10:12-0500 Heart rate 77 /min MD Shaikh Thompson Work Phone: [facility] 03-13-2022 10:12-0500 Respiratory rate 18 /min MD Shaikh Thompson Work Phone: [facility] 03-13-2022 10:12-0500 SaO2% (BldA) [Mass fraction] 98 % MD Shaikh Thompson Work Phone: [facility] 03-13-2022 10:12-0500 Systolic blood pressure 93 mm[Hg] MD Shaikh Thompson Work Phone: [facility] 03-13-2022 07:54-0500 Body height 162.56 cm MD Shaikh Thompson Work Phone: [facility] 03-13-2022 07:54-0500 Body temperature 98 [degF] MD Shaikh Thompson Work Phone: [facility] 03-13-2022 07:54-0500 Body weight 73.48 kg MD Shaikh Thompson Work Phone: [facility] 03-12-2022 08:58-0500 Body height 160.02 cm Shaikh Felywwad Work Phone: [facility] [address] DO Work Phone: 03-12-2022 08:58-0500 Body mass index (BMI) [Ratio] 28.7 kg/m2 Dunbar Fawwad Work Phone: [facility] DO Work Phone: 03-12-2022 08:58-0500 Body surface area Derived from formula 1.77 m2 Shaikh Lewiswad Work Phone: [facility] DO Work Phone: 03-12-2022 08:58-0500 Body weight 73.48 kg Shaikh Felywwad Work Phone: [facility] DO Work Phone: 03-12-2022 08:58-0500 Diastolic blood pressure 78 mm[Hg] Dunbar Felywwad Work Phone: [facility] DO Work Phone: 03-12-2022 08:58-0500 Heart rate 66 /min Shaikh Felywwad Work Phone: [facility] DO Work Phone: 03-12-2022 08:58-0500 Systolic blood pressure 110 mm[Hg] Dunbar Fawwad Work Phone: [facility] DO Work Phone: 01-23-2022 12:00-0500 72 1 Dunbar Fawwad Work Phone: [facility] [place] Work Phone: Comment on above: [id number] 11-09-2021 13:26-0400 Body height 160.02 cm Shaikh Lewiswad Work Phone: [facility] 600 DO Work Phone: 11-09-2021 13:26-0400 Body mass index (BMI) [Ratio] 27.83 kg/m2 Dunbar Fawwad Work Phone: [facility] 600 DO Work Phone: 11-09-2021 13:26-0400 Body surface area Derived from formula 1.75 m2 Shaikh Lewiswad Work Phone: [facility] 600 DO Work Phone: 11-09-2021 13:26-0400 Body weight 71.27 kg Shaikh Felywwad Work Phone: [facility] 600 DO Work Phone: 11-09-2021 13:26-0400 Diastolic blood pressure 82 mm[Hg] Dunbar Fawwad Work Phone: [facility] 600 DO Work Phone: 11-09-2021 13:26-0400 Heart rate 64 /min Shaikh Felywwad Work Phone: [facility] 600 DO Work Phone: 11-09-2021 13:26-0400 Systolic blood pressure 128 mm[Hg] Dunbar Fawwad Work Phone: [facility] 600 DO Work Phone: 09-18-2021 10:26-0400 Diastolic blood pressure 80 mm[Hg] Dunbar Fawwad Work Phone: [facility] [facility] 250 DO Work Phone: 09-18-2021 10:26-0400 Systolic blood pressure 178 mm[Hg] Shaikh Felywwad Work Phone: [facility] 250 DO Work Phone: 09-18-2021 10:19-0400 Body height 162.56 cm Shaikh Lewiswad Work Phone: [facility] 250 DO Work Phone: 09-18-2021 10:19-0400 Body mass index (BMI) [Ratio] 26.09 kg/m2 Shaikh Lewiswad Work Phone: [facility] 250 DO Work Phone: 09-18-2021 10:19-0400 Body surface area Derived from formula 1.74 m2 Shaikh Lewiswad Work Phone: [facility] 250 DO Work Phone: 09-18-2021 10:19-0400 Body weight 68.95 kg Shaikh Leoneld Work Phone: [facility] 250 DO Work Phone: 09-18-2021 10:19-0400 Diastolic blood pressure 80 mm[Hg] Shaikh Felywwad Work Phone: [facility] 250 DO Work Phone: 09-18-2021 10:19-0400 Heart rate 60 /min Shaikh Lewiswad Work Phone: [facility] 250 DO Work Phone: 09-18-2021 10:19-0400 Systolic blood pressure 180 mm[Hg] Dunbar Fawwad Work Phone: [facility] 250 DO Work Phone: 08-23-2021 14:00-0400 Body temperature 98.9 [degF] Linn Missler Other [employer] Other 08-23-2021 14:00-0400 Body weight 66.13 kg Linn Missler Other [employer] Other 08-23-2021 14:00-0400 Diastolic blood pressure 87 mm[Hg] Linn Missler Other [employer] Other 08-23-2021 14:00-0400 Respiratory rate 18 /min Linn Missler Other [employer] [facility] Other 08-23-2021 14:00-0400 SaO2% (BldA) [Mass fraction] 96 % Linn Missler Other [employer] [facility] [facility] Other 08-23-2021 14:00-0400 Systolic blood pressure 137 mm[Hg] Linn Missler Other [employer] [facility] Other 08-17-2021 12:00-0400 Diastolic blood pressure 94 mm[Hg] PHYSICIAN NO [facility] 08-17-2021 12:00-0400 Heart rate 78 /min PHYSICIAN NO [facility] 08-17-2021 12:00-0400 Respiratory rate 18 /min PHYSICIAN NO [facility] 08-17-2021 12:00-0400 SaO2% (BldA) [Mass fraction] 95 % PHYSICIAN NO [facility] 08-17-2021 12:00-0400 Systolic blood pressure 152 mm[Hg] PHYSICIAN NO [facility] 08-17-2021 08:00-0400 Body temperature 97.5 [degF] PHYSICIAN NO [facility] 08-17-2021 05:57-0400 Body weight 75.8 kg PHYSICIAN NO [facility] 08-17-2021 00:44-0400 Inhaled oxygen flow rate 2 L/min PHYSICIAN NO [facility] 08-16-2021 14:43-0400 Body height 162.56 cm PHYSICIAN NO [facility] 08-16-2021 14:43-0400 Body mass index (BMI) [Ratio] 25.6 kg/m2 PHYSICIAN NO [facility] Encounters Encounter Date Encounter Type Care Provider Facility Start: 09-18-2024 ambulatory Dereck GROVES Facili ty:[facility] Start: 05-04-2024 End: 05-04-2024 ambulatory Dereck Hannah YANELI Facility:[id number] Start: 04-21-2024 End: 04-21-2024 ambulatory Dereck Hannah YANELI Facility:[facility] Start: 04-21-2024 End: 04-21-2024 Patient encounter procedure Dereck GROVES [facility] Start: 01-09-2024 End: 03-10-2024 Pre-admission assessment Dereck GROVES [facility] Start: 01-09-2024 ambulatory Juany C Sammie Facility :[facility] Start: 01-05-2024 End: 01-05-2024 ambulatory Juany C Sammie Facility:[facility] Start: 01-05-2024 End: 01-05-2024 Patient encounter procedure Juany C Sammie [facility] Start: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 emergency room if your symptoms get worse or any new symptoms. [facility] 11-29-2023 Evaluation + Plan note Extrac [...] spasm, # 20 tab(s), Refills(s) 0, Pharmacy: [facility]/pharmacy #[id number], 163, cm, 11/29/23 12:02:00 EDT, Height/Length [...] PM Scheduled Provider:Dereck GROVES MD Location:[facility] Appointment Type:URO Office Visit [facility] 10-11-2024 NoteED Patient Education Note Neurology [...] your friends, family, a trusted colleague, and face worker about your injury, symptoms, andrestrictions. Ask them to watch for any problems that are new or get worse. General instructions ? Take syjo-sjl-athpmva and prescription medicines only as told by [...] The ri (more content not included)...[facility]12-28-2023 Discharge summary Author Jacques East [facility] February 14, 2023 12:53pm Note Date/Time February 14, 2023 12:53pm [facility] [address] [place] [address] Discharge Summary Signed Patient: Deysi Hernandez MR#: [id number] : 1960 Acct:[id number] Age/Sex: 62 / F Adm Date: 3 Loc: Room: [address] [place] [address]: Jacques East MD Copies to: [...] female with PMHx of CKD presented to [facility] with shortness of breath and was [place] [facility] [place] to [place] troponins. Patient states she [...] % (Auto) 87.6, Lymph % (Auto) 7.6, [place] % (Auto) 4.7, Eos % (Auto) 0.0, Baso % (Auto) 0.1, Nucleat RBC Rel Count 0.0, Neut # (Auto) 11.1 H, Lymph #(Auto) 1.0, [place] # (Auto) 0.6, Eos # (Auto) 0.0, [...] signed by Jacques East MD> 02/14/23 1253 [facility] Work Phone: 1(469) 719-684812-28-2023 Progress note Author Jacques East [facility] February 14, 2023 12:45pm Note Date/Time February 14, 2023 7:29am [facility] [address] [place] [address] Hospitalist Progress Note Signed Patient: Deysi Hernandez MR#: [id number] : 1960 Acct:[id number] Age/Sex: 62 / F Adm Date: 3 Loc: Room: [address] [place] [address] Type: ADM IN Attending Dr: Jacques East [...] creatinine clearance -Trending downward from 80s at [place] to 70s here. repeat trop 43, flat [...] 0725 Signed By: <Electronically signed by DO MARAINELA Rivas> 02/14/23 1132 <Electronically signed by Jacques East MD> 02/14/23 124 [facility] Work Phone: 1(104) 765-116512-27-2023 Progress note Author Jacques East [facility] February 13, 2023 10:47am Note Date/Time February 13, 2023 10:40am [facility] [address] [place] [address] Hospitalist Progress Note Signed Patient: Deysi Hernandez MR#: [id number] : 1960 Acct:[id number] Age/Sex: 62 / F Adm Date: 3 Loc: Room: [address] [place] [address] Type: ADM IN Attending Dr: Jacques East [...] creatinine clearance -Trending downward from 80s at [place] to 70s here. repeat trop 43, flat [...] <Electronically signed by Jacques East MD> 02/13/23 [facility] Work Phone: 1(727) 724-982612-26-2023 History and physical note Author Jacques East [facility] February 12, 2023 11:26am Note Date/Time February 12, 2023 9:53am [facility] [address] [place] [address] Hospitalist H&P Signed Patient: Deysi Hernandez MR#: [id number] : 1960 Acct:[id number] Age/Sex: 62 / F Adm Date: 3 Loc: 3T Room: [address] [place] [address] Type: ADM INOo Attending Dr: Jacques East MD Copies to: Geneva Rivas DO, RES MD Shaikh Leonel Piñad, MD~ HPI DATE OF EXAMINATION: 02/12/23 CHIEF COMPLAINT: Shortness of breath HISTORY OF PRESENT ILLNESS: Patient is a 62 year old female with PMHx of CKD presented to [facility] with shortness of breath and was transferred [place] [facility] due to elevated troponins. Patient states she [...] troponin 70.6 (down from 87 yesterday at [place]). Review of Systems Review of Systems All other systems reviewed & are negative unless noted below or in HPI Review of systems: 10 systems are reviewed and are negative except as mentioned elsewhere in the documentation [facility] Medical History CKD (chronic kidney disease) stage 3, GFR 30-59 ml/min Embolic cerebrovascular disease High cholesterol Problem List clean-up per request of Phys. EHR Cmte Hypertension Problem List clean-up per request of Phys. EHR [facility] Family History Father Myocardial infarction Heart disease [...] % (Auto) 4.0 % (.) 02/12/23 06:41 [place] % (Auto) 1.8 % (.) 02/12/23 06:41 Eos % (Auto) 0.0 % (.) 02/12/23 06:41 Baso % (Auto) 0.2 % (.) 02/12/23 06:41 Nucleat RBC Rel Count 0.1 /100 WBC (0-0.5) 02/12/23 06:41 Neut # (Auto) 14.1 x10E3/uL (1.8-7.7) H 02/12/23 06:41 Lymph # (Auto) 0.6 x10E3/uL (1.00-4.8) L 02/12/23 06:41 [place] # (Auto) 0.3 x10E3/uL (0.0-0.8) 02/12/23 06:41 [...] creatinine clearance -Trending downward from 80s at [place] to 70s here. Will trend it again. [...] Jacques East MD> 02/12/23 1126 [facility] Work Phone: 1(842) 256-486812-24-2023 Hospital Discharge instructions Patient Education 02/10/2023 17:12:09 Urinary Tract Infection, Adult, Ojnv-qv-Diwu Urinary Tract Infection, Adult A urinary tract [...] Follow these instructions at home: Medicines Take xxgz-cay-wlxynkt and prescription medicines only as told by [...] provider. Document Revised: 09/16/2020 Document Reviewed: 09/16/2020 [employer] Patient Education 2022 [employer]. 02/10/2023 17:12:09 Acute Bronchitis, Adult Acute Bronchitis, [...] condition. Follow these instructions at home: Take zktq-sgg-ujtbzkn and prescription medicines only as told by [...] and water are not available, use hand kiln firer. Avoid contact with people who have cold [...] it is easier to cough up. Take edob-chj-zgicsvo and prescription medicines only as told by [...] provider. Document Revised: 05/17/2022 Document Reviewed: 06/07/2021 [employer] Patient Education 2022 [employer]. Follow Up Care 02/10/2023 14:38:40 With:SHAIKH DONNA Address: [address] [place], [place] [address] [address] [phone] Business (1) When:02/13/2023 16:16:37 Comments:Follow-up with your primary care provider in 3 to 5 days. If symptoms worsen, do not improve, or new symptoms arise please report back to emergency department for further evaluation. [facility]12-24-2023 Evaluation + Plan note Diagnostic Tests Pending * Urine Culture 02/10/23 [facility]12-24-2023 Evaluation + Plan noteExtracted from: [...] Troponin 3 Hr. XR Chest Single View [facility]09-12-2023 Evaluation note* Diagnosis Stage 3 chronic kidney disease, unspecified whether stage 3a or 3b CKD (HCC) documented in this encounter [facility]09-11-2023 NoteHNO ID: [id number] Author: Debra Fishman MD Service: ? Author Type: Physician Type: Progress Notes Filed: 10/29/2022 9:00 PM Note Text: Patient contacted me regarding high blood pressure in 150-160 mmHg at home. We agreed to increase lisinopril back to 10 mg daily, updated prescription sent to pharmacy on file. Debra Fishman MD Staff, Department of Kidney Medicine 10/29/22 9:00 [facility]09-11-2023 History of Present illness Narrative * Debra Fishman MD - 10/29/2022 8:59 PM EDT Patient contacted me regarding high blood pressure in 150-160 mmHg at home. We agreed to increase lisinopril back to 10 mg daily, updated prescription sent to pharmacy on file. Debra Fishman MD Staff, Department of Kidney Medicine 10/29/22 9:00 PM [facility] Miscellaneous Notes* Telephone Encounter - Debra [...] question. I will also send her a Thanx message encouraging communicate via Thanx if needed. Debra Fishman MD Staff, Department of Kidney Medicine 10/26/22 5:49 PM documented in [facility] encounterC[facility]09-[facility]23 Miscellaneous Notes* Telephone Encounter - Linn oSlis Ma - 10/25/2022 12:32 PM EDT Patient called the office very upset because today at here appointment with Kidney Medicine she wasseen by another provider and it wasn't her kidney doctor. She would like Dr. Fishman call her back at [phone] because she has lots of questions that the patient wants answers to and the patient is requesting that the provider calls her back after 5:30 pm due to the patient works that late Saturday thru Saturday documented in this encounterCher[facility]08-[facility]23 Hospital Discharge instructions Patient Education 10/15/2022 [...] Department of Health and Human Services: www.smokefree.gov [place] [employer]: www.freedomfromsmoking.org [place] [employer]: www.heart.org Where to find more [...] provider. Document Revised: 02/06/2022 Document Reviewed: 02/06/2022 [employer] Patient Education 2022 [employer]. 10/15/2022 18:04:53 Steps to Quit Smoking Steps [...] require a prescription. You can also purchase lxxb-fqt-xfcrjzu medicines. Medicines may have nicotine in them [...] and encouragement. Call telephone quitlines, such as 6-136-POZL-NOW, reach out to support groups, or work [...] provider. Document Revised: 01/26/2022 Document Reviewed: 01/26/2022 [employer] Patient Education 2022 [employer]. 10/15/2022 18:04:51 BMI for Adults BMI for [...] numbers. This can be done either in [place] ([place] or metric measurements. Note that charts and online BMI calculators are available to help you find your BMI quickly and easily without having to do these calculations yourself. To calculate your BMI in [place] measurements: 1.Measure your weight in pounds [...] Centers for Disease Control and Prevention: www.cdc.gov [place] [employer]: www.heart.org National Heart, Lung, and Blood [place]: www.nhlbi.nih.gov Summary Body mass index (BMI) is a number that is calculated from a person's weight and height. BMI may help estimate how much of a person's weight is composed of fat. BMI can help identify thosewho may be at higher risk for certain medical problems. BMI can be measured using [place] measurements or metric measurements. BMI charts are used to identify whether you are underweight, normal weight, overweight, or obese. This information is not intended to replace advice given to you by your health care provider. Make sure you discuss any questions you have with your health care provider. Document Revised: 10/28/2019 Document Reviewed: 09/04/2019 [employer] Patient Education 2022 [employer]. 10/15/2022 18:04:48 Urinary Tract Infection, Adult Urinary [...] Treatment for this condition includes: Antibiotic medicine. Tjbh-qjm-hiqorgb medicines to treat discomfort. Drinking enough water [...] Follow these instructions at home: Medicines Take lwgx-xfk-gwknhlz and prescription medicines only as told by [...] provider. Document Revised: 09/16/2020 Document Reviewed: 09/16/2020 [employer] Patient Education 2022 [employer]. 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 Author Type: Physician Type: Progress Notes Filed: 10/09/2022 5:08 PM Note Text: [facility]PHR[facility]YPERTENSION [facility] SERVICE [...] CKD, ESRD, hearing loss. She is a mushroom cutter smoker, currently 0.75 pack per day but [...] note: I have interview (more content not included)...[facility] 10-09-2022 Instructions* Patient Instructions* Gurmeet Ojeda [...] to smoking cessation program documented in this encounterC[facility]08-[facility]23 History of Present illness Narrative* Rosie Harris, DO - 10/09/2022 2:32 PM EDT [facility] SERVICE [...] CKD, ESRD, hearing loss. She is a mushroom cutter smoker, currently 0.75 pack per day butsmoked [...] plan. Rosie Harris DO documented in this encounterCherrington Hospital08-22-2023 NotePatient Outreach (ELPIDIO) DEYSI HERNANDEZ ([id number]) 1960 F Date Time Provider Department 10/09/22 ROSIE HARRIS During your visit today, we recorded the following information about you: Allergies As of Date: 10/09/2022 Noted Allergy Reaction CODEINE 09/07/2014 7 - Swelling Date Reviewed: 10/09/2022 Reviewed by: Rosie Harris DO - Fully Assessed Visit Diagnosis:Screening for genitourinary condition [Z13.89] Order(s):URINALYSIS, REFLEX MICROSCOPIC [ASV0629] Order #: [id number]. #:[id number] Prescriptions as of 10/12/2022 - lisinopril (ZESTRIL) [...] Mixed hyperlipidemia [E78.2] 10/09/2022 Encounter Status:Closed by [employer] VuduUSEHannah on 10/12/22[facility] 08-23-2022 NoteHNO ID: [id number] Author: Carine Farris RDMS Service: ? Author [...] Carine Farris RDMS August 23, 2022 2:23 [id number] NoteHNO ID: [id number] Author: Debra Fishman MD Service: ? Author Type: Physician Type: Progress Notes Filed: 08/09/2022 7:02 PM Note Text: [facility] SERVICE [...] LEUKEST 75 Bonnie/uL* ASSE (more content not included)...[facility]06-22-2023 Instructions* Patient Instructions* Gurmeet Ojeda MD [...] at your earliest convenience documented in this encounterCher[facility] Hospital06-22-2023 History of Present illness Narrative* Debra Fishman MD - 08/09/2022 3:17 PM EDT [facility] SERVICE [...] Staff, Department of Kidney Medicine Pager # [phone] August 09, 2022 6:58 PM documented in this encounterCherrington Hospital06-22-2023 NotePatient Outreach (ELPIDIO) DEYSI HERNANDEZ ([id number]) 1960 F Date Time Provider Department 08/09/22 DEBRA FISHMAN During your visit today, we recorded the following information about you: Allergies As of Date: 08/09/2022 Noted Allergy Reaction CODEINE 09/07/2014 7 - Swelling Date Reviewed: 08/09/2022 Reviewed by: Paulo Holbrook MA - Fully Assessed Visit Diagnosis:Screening for genitourinary condition [Z13.89] Order(s):URINALYSIS, REFLEX MICROSCOPIC [MUI5022] Order #: [id number]. #:[id number] Prescriptions as of 08/13/2022 - aspirin, enteric [...] for malignant neoplasm *03/27/2016 Encounter Status:Closed by DOLLY PRODUSER on 08/13/22[facility] 06-06-2022 Hospital Discharge instructions Patient Education [...] your health care provider. General instructions Take wxka-two-mcpsnqq and prescription medicines only as told by [...] provider. Document Revised: 10/24/2020 Document Reviewed: 10/24/2020 [employer] Patient Education 2022 [employer]. [facility] 04-05-2023 Hospital Discharge instructions Patient Education [...] 01/21/2013 Document Revised: 09/24/2018 Document Reviewed: 09/24/2018 [employer] Patient Education 2020 [employer] [facility] [id number] Hospital Discharge instructions Patient Education 04/11/2022 11:35:40 [...] 01/21/2013 Document Revised: 09/24/2018 Document Reviewed: 09/24/2018 [employer] Patient Education 2020 [employer]. Follow Up Care 02/28/2022 14:28:28 With:TRUDY ADRIAN PA-C, URL Address: [address] [place] [address] [place] [address] When: Unknown [facility] 01-30-2023 Evaluation note* Encounter Date [...] concerns Feb, Sore throat (ICD-10 - J02.9) [facility] Other 01-24-2023 [facility]* Encounter Date Diagnosis [...] provided at this facility and or the 800 quit now card given who can [...] risk of hypotension. Patient also educated on [employer] [employer] as patient does not have prescription insurance. Advised patient on proper assessment of blood pressure at home. Time spent with patient: 10 minutes Seen by: Akil Collins, AndryD, BCACP [place] [email or web address] Other 06-29-2022 Progress note Author Ricky Reynoso [facility] August 16, 2021 6:37pm Note Date/Time August 16, 2021 6:37 pm [facility] [address] [place] [address] Hospitalist Progress Note Signed Patient: Deysi Hernandez MR#: [id number] : 1960 Acct:[id number] Age/Sex: 61 / F Adm Date: 2 Loc: Room: [address] [place] [address] Type : ADM IN Attending Dr: Ricky [...] Benzocaine 1 applic 08/16/21 15:00 Benzocaine 20% [place] 57 Gm Can MUCOUS MEM ONCE PRN [...] culture have been pending, urine culture at [place] showed mixed zoe, since patient presented with [...] PT OT Documented By: Ricky Reynoso DO [id number] Signed By: <Electronically signed by Ricky Reynoso, > 08/16/211836 [facility] Work Phone: 1(632) 345-254506-29-2022 Progress note Author Rober Wyatt [facility] August 16, 2021 5:13pm Note Date/Time August 16, 2021 8:17 am [facility] [address] [place] [address] Neurology Progress Note Signed Patient: Deysi Hernandez MR#: [id number] : 1960 Acct:[id number] Age/Sex: 61 / F Adm Date: 2 Loc: 3T Room: [address] [place] [address] Type : ADM IN Attending Dr: Ricky [...] 4 extremities and symmetric CEREBELLAR EXAM: * Wqoowc-km-syrj and alternating movements are intact and normal in bilateral upper extremities * Hkku-gc-fjzg and alternating movements are intact and normal [...] Patient presented to the emergency room at [facility] with abdominal pain and was noted to have acute kidney injury and evidence of pyelonephritis and elevated troponin with EKG changes. She was transferred to [facility] for further evaluation. She is on [...] <Electronically signed by Rober Wyatt DO> 08/16/21 3075 [facility] Work Phone: 1(247) 271-169606-29-2022 Progress note Author Marquez Beal [facility] August 16, 2021 10:47am Note Date/Time August 16, 2021 10:4 4am [facility] [address] [place] [address] Cardiology Progress Note Signed Patient: Deysi Hernandez MR#: [id number] : 1960 Acct:[id number] Age/Sex: 61 / F Adm Date: 2 Loc: Room: [address] [place] [address] Type : ADM IN Attending Dr: Ricky [...] % (Auto) 70.9 Lymph % (Auto) 18.6 [place] % (Auto) 9.4 Eos % (Auto) 0.4 Baso % (Auto) 0.7 Neut # (Auto) 7.7 Lymph # (Auto) 2.0 [place] # (Auto) 1.0 H Eos # (Auto) [...] By: <Electronically signed by MD Marquez Beal> 08/16/211046 [facility] Work Phone: [phone]) [phone] Consult note Author Rober Wyatt [facility] August 15, 2021 5:40pm Note Date/Time August 15, 2021 8:42 am [facility] [address] [place] [address] Neurology Consult Note Signed Patient: Deysi Hernandez MR#: [id number] : 1960 Acct:[id number] Age/Sex: 61 / F Adm Date: 2 Loc: Room: [address] [place] [address] Type : ADM IN Attending Dr: Alaina Arce MD Copies to: DO Janet Richter ANP-C Kanika Ahuja MD NO FAMILY PHYSICIAN~ HPI Consult Date: 08/15/21 Endband Cutter Hand: MAURICIO Rose with Dr Wyatt Reason for consult: Stroke Consult Narrative HPI: Patient is a 61-year-old female with unknown medical history. She was admitted to the hospital on 08/13/2021 after presenting to the emergency room with abdominal pain that been present for approximately 1 week associated with nauseaand vomiting. Patient presented to the emergency room in [place] and found to have significant hypertension and [...] head was nonacute. She was transferred to [facility] for further evaluation and management. On [...] 4 extremities and symmetric CEREBELLAR EXAM: * Mkkhda-jw-ualf and alternating movements are intact and normal in bilateral u pper extremities * Ooko-fd-kcyw and alternating movements are intact and normal [...] Christopher Ceja M.D.08/14/2021 4:57 PM Dictation Location: [place] [address] Therapy Recommendations Therapy Recommendations: OT Recommendations OT [...] Patient presented to the emergency room at [facility] with abdominal pain and was noted to have acute kidney injury and evidence of pyelonephritis and elevated troponin with EKG changes. She was transferred to [facility] for further evaluation. She is on [...] <Electronically signed by Rober Wyatt DO> 08/15/21 4376 [facility] Work Phone: 1(425) 353-718106-28-2022 Progress note Author Marquez Beal [facility] August 15, 2021 4:25pm Note Date/Time August 15, 2021 4:25 pm [facility] [address] [place] [address] Cardiology Progress Note Signed Patient: Deysi Hernandez MR#: [id number] : 1960 Acct:[id number] Age/Sex: 61 / F Adm Date: 2 Loc: Room: [address] [place] [address] Type : ADM IN Attending Dr: Alaina [...] MPV Neut % (Auto) Lymph % (Auto) [place] % (Auto) Eos % (Auto) Baso % (Auto) Neut # (Auto) Lymph # (Auto) [place] # (Auto) Eos # (Auto) Baso # [...] % (Auto) 82.8 Lymph % (Auto) 8.6 [place] % (Auto) 7.9 Eos % (Auto) 0.1 Baso % (Auto) 0.6 Neut # (Auto) 11.6 H Lymph # (Auto) 1.2 [place] # (Auto) 1.1 H Eos # (Auto) [...] that time. Documented By: Marquez Beal MD [id number] Signed By: <Electronically signed by MD Marquez Beal> 08/15/21 6451 [facility] Work Phone: 1([phone]) 198-643006-28-2022 Progress note Author Alaina Arce [facility] August 15, 2021 10:27am Note Date/Time August 15, 2021 10:2 7am [facility] [address] [place] [address] Hospitalist Progress Note Signed Patient: Deysi Hernandez MR#: [id number] : 1960 Acct:[id number] Age/Sex: 61 / F Adm Date: 2 Loc: Room: [address] [place] [address] Type : ADM IN Attending Dr: Alaina Arce MD Copies to: ~ Date of Service: 08/15/2021 Subjective Subjective Narrative: Patient is 61-year-old female with no previous known medical history GERD transferred from [place] for further management of abdominal pain. Patient [...] a week ago, patient initially went to [place] ER, was found to have blood pressure [...] showed changes similar to 1 done in [place], Labs at [facility], potassium 3.1, creatinine 1.92, bloodglucose 132, [...] 1,000 Ml IV 08/13/22 10:59 75 mls/hr .[id number] ESTEBAN Administration Metoprolol Succinate 50 mg 08/15/21 09:00 08/15/21 09:44 Metoprolol Succinate 50 Mg Tab.Er.24h PO 08/15/22 08:59 50 mg DAILY ESTEBAN Administration Pantoprazole Sodium 40 mg 08/14/21 09:00 06/28/22 09:44 Pantoprazole 40 Mg Vial IV-PUSH 08/14/22 [...] culture have been pending, urine culture at [place] showed mixed zoe, since patient presented with [...] <Electronically signed by Alaina Arce MD> 08/15/21 1022 [facility] Work Phone: 1([phone]) 586-985606-27-2022 Progress note Author Bong Bansal [facility] August 14, 2021 6:15pm Note Date/Time August 14, 2021 4:52 pm [facility] [address] [place], [place] [id number] Event Note Signed Patient: Deysi Hernandez MR#: [id number] : 1960 Acct:[id number] Age/Sex: 61 / F Adm Date: 2 Loc: Room: [address] [place] [address] Type : ADM IN Attending Dr: Alaina [...] <Electronically signed by Bong Bansal MD> 08/14/21 1812 [facility] Work Phone: [phone]) 369-667006-27-2022 Progress note Author Marquez Beal [facility] August 14, 2021 3:21pm Note Date/Time August 14, 2021 3:21 pm [facility] [address] [place] [address] Cardiology Progress Note Signed Patient: Deysi Hernandez MR#: [id number] : 1960 Acct:[id number] Age/Sex: 61 / F Adm Date: 2 Loc: Room: [address] [place] [address] Type : ADM IN Attending Dr: Alaina [...] % (Auto) 64.9 Lymph % (Auto) 26.5 [place] % (Auto) 7.3 Eos % (Auto) 0.6 Baso % (Auto) 0.7 Neut # (Auto) 6.8 Lymph # (Auto) 2.8 [place] # (Auto) 0.8 Eos # (Auto) 0.1 [...] MPV Neut % (Auto) Lymph % (Auto) [place] % (Auto) Eos % (Auto) Baso % (Auto) Neut # (Auto) Lymph # (Auto) [place] # (Auto) Eos # (Auto) Baso # [...] coronary disease Documented By: Marquez Beal MD [id number] Signed By: <Electronically signed by MD Marquez Beal> 08/14/21 4697 [facility] Work Phone: 1(180) 448-699906-27-2022 Progress note Author Alaina Arce [facility] August 14, 2021 10:48am Note Date/Time August 14, 2021 10:4 4am [facility] [address] [place] [address] Hospitalist Progress Note Signed Patient: Deysi Hernandez MR#: [id number] : 1960 Acct:[id number] Age/Sex: 61 / F Adm Date: 2 Loc: Room: [address] [place] [address] Type : ADM IN Attending Dr: Alaina Arce MD Copies to: ~ Date of Service: 08/14/2021 Subjective Subjective Narrative: Patient is 61-year-old female with no previous known medical history GERD transferred from [place] for further management of abdominal pain. Patient [...] a week ago, patient initially went to [place] ER, was found to have blood pressure [...] showed changes similar to 1 done in [place], Labs at [facility], potassium 3.1, creatinine 1.92, bloodglucose 132, [...] 1,000 Ml IV 08/13/22 10:59 75 mls/hr .[id number] ESTEBAN Administration Metoprolol Tartrate 25 mg 08/13/21 [...] culture negative, will get culture report from [place] Patient has significantly improved, continue Rocephin, will [...] signed by Alaina Arce MD> 08/14/21 1048 [facility] Work Phone: 1([phone]) [phone] Consult note Author Marquez Beal [facility] August 13, 2021 1:32pm Note Date/Time August 13, 2021 1:32 pm [facility] [address] [place] [address] Cardiology Consult Note Signed Patient: Deysi Hernandez MR#: [id number] : 1960 Acct:[id number] Age/Sex: 61 / F Adm Date: 2 Loc: Room: [address] [place] [address] Type : ADM IN Attending Dr: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
--- NOTE | 2024-05-27 21:42 | ED_ITS ---
HPI - URI/Sore Throat General Chief Complaint: Upper Respiratory Infection Stated Complaint: shortness of breath Time Seen by Provider: 05/27/24 21:35 Source: patient Limitations: no limitations History of Present Illness HPI Narrative: This 64-year-old female, smoker who states she has been told by her health and safety coordinator that she had the beginnings of COPD presents for evaluation of 4 days of cough, nasal congestion, sinus pressure. She states she has exertional dyspnea. She has been using her inhaler with mild improvement. She had a fever when the symptoms started but has not had a fever for the past several days. She has been using [id number] cough and cold medication with minimal improvement. She denies any nausea vomiting or diarrhea. She denies any veronica chest pain. Related Data Home Medications ?Medication ?Instructions ?Recorded ?Confirmed aspirin 81 mg chewable tablet 1 tab PO DAILY 08/04/23 04/06/24 atorvastatin 40 mg tablet 40 mg PO DAILY 08/04/23 04/06/24 lisinopril 10 mg tablet 20 mg PO DAILY 08/04/23 04/06/24 metoprolol succinate 50 mg 50 mg PO DAILY 08/04/23 04/06/24 tablet,extended release 24 hr albuterol sulfate 90 mcg/actuation 2 inh inhalation Q4H PRN shortness 03/31/24 04/06/24 aerosol inhaler of breath or wheezing magnesium oxide 400 mg PO DAILY 03/31/24 04/06/24 Allergies Allergy/AdvReac Type Severity Reaction Status Date / Time codeine Allergy Severe swelling Verified 05/27/24 21:31 Review of Systems ROS Status of ROS 10 or more systems reviewed and unremark able except as noted in history and below [facility] Medical History (Updated 05/27/24 @ 22:55 by Evon Peñaloza MD) Stress incontinence ?N39.3 - Stress incontinence (female) (male) (ICD-10) Renal cyst ?N28.1 - Cyst of kidney, acquired (ICD-10) Orthostatic hypotension ?I95.1 - Orthostatic hypotension (ICD-10) Hyperlipidemia ?E78.5 - Hyperlipidemia, unspecified (ICD-10) Erythrocytosis ?D75.1 - Secondary polycythemia (ICD-10) Dysphagia ?R13.10 - Dysphagia, unspecified (ICD-10) Alkalosis ?E87.3 - Alkalosis (ICD-10) Smoker ?F17.200 - Nicotine dependence, unspecified, uncomplicated (ICD-10) Stroke ?I63.9 - Cerebral infarction, unspecified (ICD-10) HTN (hypertension) ?I10 - Essential (primary) hypertension (ICD-10) GERD (gastroesophageal reflux disease) ?K21.9 - Gastro-esophageal reflux disease without esophagitis (ICD-10) CKD (chronic kidney disease) ?N18.9 - Chronic kidney disease, unspecified (ICD-10) Recurrent UTI ?N39.0 - Urinary tract infection, site not specified (ICD-10) Flank pain ?R10.9 - Unspecified abdominal pain (ICD-10) Renal atrophy ?N26.1 - Atrophy of kidney (terminal) (ICD-10) Surgical History (Updated 04/30/24 @ 11:02 by Amy Charles) H/O colonoscopy ?Z98.890 - Other specified postprocedural states (ICD-10) History of endometrial ablation ?Z98.890 - Other specified postprocedural states (ICD-10) Family History (Updated 04/06/24 @ 07:32 by Maryse Araya, NAYE) Other Family history of hypertension Family history of myocardial infarction Social History (Updated 04/06/24 @ 07:32 by Maryse Araya, NAYE) Within the past year, how often did you have a drink containing alcohol: never Score interpretation: A score less than 3 is consistent with normal alcohol consumption. 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 Highest level of school completed/degree received: high school graduate Little interest or pleasure in doing things: not at all Feeling down, depressed, or hopeless: not at all Exam Narrative Exam Narrative: Vital signs and Nursing Notes reviewed: Patient is afebrile, pulse is on the high side at 100, blood pressure is normal at 120/86, pulse ox is normal at 97% on room air General: Alert, nontoxic female, she is ambulatory in the room without respiratory distress, audible nasal congestion HEENT: Normocephalic atraumatic, mucous membranes are moist and pink, eyes are clear, normal conjunctiva, vision is grossly intact, posterior pharynx is normal in appearance. Neck: Supple Chest: Lungs are clear to auscultation with good air entry, there is no wheezing rhonchi or rales appreciated no accessory muscle use, patient is speaking in complete sentences-no chest wall tenderness to palpation, occasional moist cough noted CVS: Regular rate and rhythm S1-S2, no murmurs rubs or gallops, pulses are brisk and equal bilaterally ABD: Soft, nondistended, nontender, no rebound guarding or rigidity, bowel sounds are normal, no pulsatile masses appreciated Extremities: Moving all extremities Skin: Normal in appearance without rash,pallor, petechiae or purpura Neuro: No focal deficits Constitutional Vital Signs, click to edit/add: Last Vital Signs Temp 97.3 F L 05/27/24 21:22 Pulse 89 05/27/24 22:11 Resp 20 05/27/24 22:11 BP 120/86 05/27/24 21:22 Pulse Ox 94 L 05/27/24 22:11 O2 Del Method Room Air 05/27/24 22:11 Course Vital Signs Vital signs: Vital Signs Temperature 97.3 F L 05/27/24 21:22 Pulse Rate 100 H 05/27/24 21:22 Respiratory Rate 20 05/27/24 21:22 Blood Pressure 120/86 05/27/24 21:22 Oxygen Delivery Method Room Air 05/27/24 21:22 Temperature 97.3 F L 05/27/24 21:22 Pulse Rate 89 05/27/24 22:11 Respiratory Rate 20 05/27/24 22:11 Blood Pressure 120/86 05/27/24 21:22 Pulse Oximetry 94 L 05/27/24 22:11 Oxygen Delivery Method Room Air 05/27/24 22:11 MDM - URI/Sore Throat MDM Narrative Medical decision making narrative: This 64-year-old female with a history of COPD and tobacco use presents for evaluation of 4 days of upper respiratory symptoms including cough, nasal congestion, intermittent fever and chills. She has not had any nausea vomiting or diarrhea. Patient's lungs are clear but her pulse ox was mildly low at 94%. She was given a DuoNeb treatment. She was reluctant but agreeable to being tested for COVID-19 and influenza. Chest x-ray was also ordered. She is positive for COVID-19. She is negative for influenza. She declined going to the radiology department and a 1 view chest x-ray was ordered that shows chronic changes but no acute pulmonary infiltrate. She was given a dose of prednisone in the emergency department and at first dose of Zithromax. In light of her COPD and now with COVID-19 the medications will be given to hopefully curtail any pneumonia. She is otherwise hemodynamically stable for discharge. She was given a mask and COVID-19 anticipatory guidance. Lab Data Labs: Lab Results 05/27/24 Range/Units 21:45 Influenza Type A Ag Negative Influenza Type B Ag Negative SARS-CoV-2 Ag (CV2AG) Positive A (NEGATIVE) ECG Data Attestation: I personally reviewed and interpreted this ECG as follows: (Sinus rhythm at 70 bpm, normal axis, normal intervals, no acute ST segment elevation or T wave inversion) Discharge Plan Discharge Chief Complaint: Upper Respiratory Infection Clinical Impression: Upper respiratory infection, COVID-19 Patient Disposition: Home, Self-Care Time of Disposition Decision: 22:54 Condition: Good Prescriptions / Home Meds: No Action atorvastatin 40 mg tablet 40 mg PO DAILY metoprolol succinate 50 mg tablet extended release 24 hr 50 mg PO DAILY lisinopril 10 mg tablet 20 mg PO DAILY aspirin 81 mg tablet,chewable 1 tab PO DAILY albuterol sulfate 90 mcg/actuation HFA aerosol inhaler 2 inh inhalation Q4H PRN (Reason: shortness of breath or wheezing) magnesium oxide 400 mg magnesium tablet 400 mg PO DAILY Print Language: Sammarinese Instructions: Upper Respiratory Infection (ED), COVID-19 (Coronavirus Disease 2019) (ED) Referrals: Juany Cochran DO [Primary Care Provider] - 1 week
--- NOTE | 2024-05-27 21:42 | ECG_ITS ---
[facility] Test Date: 2024-05-27 Pat Name: SIXTO RICH Department: Room: - Gender: Female Registry Np: : 1960 Requested By: [id number] Order Number: [id number] Reading MD: FELIPE CALLEJAS M.D. Measurements Intervals [place] Rate: 70 P: 69 NM: 138 QRS: 80 QRSD: 76 T: 73 QT: 402 QTc: 422 Interpretive Statements 1100 Sinus rhythm [address] depression 9150 abnormal ECG Compared to ECG 08/04/2023 14:55:23 Myocardial infarct finding no longer present Electronically Signed On 05-28-2024 8:11:45 EDT by FELIPE CALLEJAS M.D.
[2024-05-27 22:11] VITALS: PULSE 89; O2SAT 94
[2024-05-27] MEDS: IPRATROPIUM/ALBUTEROL SULFATE 3 ML AMPUL.NEB IH (22:11)
[2024-05-27 22:15] LABS: SARS-CoV-2 Ag POSITIVE (NEGATIVE)
[2024-05-27 22:16] LABS: Influenza Virus A Antigen Negative; Influenza Virus B Antigen Negative; Internal Control Within Normal Limits
[2024-05-27] MEDS: ONDANSETRON 4 MG RAPDIS TABLET SL (22:39)
[2024-05-27] MEDS: HYDROCODONE/ACET 5-325 MG TABLET 1 TAB PO (22:39)
[2024-05-27] MEDS: AZITHROMYCIN 250 MG TABLET 500 MG PO (23:03)
[2024-05-27] MEDS: PREDNISONE 20 MG TABLET PO (23:03)
== END 2024-05-27 23:11 | disposition home or self-care (01) ==
PROVIDERS: Emergency Provider Emergency Medicine; PCP Family Medicine
DX: U07.1 COVID-19 (principal); J06.9 Acute upper respiratory infection, unspecified; J44.9 Chronic obstructive pulmonary disease, unspecified; R06.02 Shortness of breath; F17.200 Nicotine dependence, unspecified, uncomplicated
CPT/HCPCS: 71045; 87804; 87811; 93005; 94640; 99285; J7512; Q0162

== ENCOUNTER 2024-06-13 09:17 | Outpatient (OUT) | payer OTHER, SELFPAY ==
[2024-06-13 09:46] LABS: Basophils Absolute Auto 0.1 10^3/uL (0.0-0.1); Basophils Percent Auto 0.9 % (0.2-2.0); Eosinophils Absolute Auto 0.2 10^3/uL (0.0-0.7); Eosinophils Percent Auto 2.1 % (0.9-7.0); Hematocrit 48.8 % (36.0-48.0); Hemoglobin 16.1 g/dL (12.0-16.0); Immature Granulocytes Abs Auto 0.02 10^3/uL (0.00-0.03); Immature Granulocytes Pct Auto 0.2 % (0.0-0.5); Lymphocytes Percent Auto 24.7 % (20.5-60.0); Mean Corpuscular Volume 93.8 fL (81.0-99.0); Mean Platelet Volume 9.2 fL (9.5-13.5); Monocytes Absolute Auto 0.7 10^3/uL (0.3-0.8); Monocytes Percent Auto 8.4 % (1.7-12.0); Neutrophils Absolute Auto 5.2 10^3/uL (1.4-6.5); Neutrophils Percent Auto 63.7 % (43.0-75.0); Platelet Count 202 10^3/uL (150-450); Red Cell Distribution Width 13.9 % (11.0-15.0); White Blood Count 8.1 10^3/uL (4.0-11.0)
[2024-06-13 09:53] LABS: Bilirubin Urine NEGATIVE (NEGATIVE); Blood Urine TRACE-I (NEGATIVE); Clarity Urine CLEAR (CLEAR); Color Urine LT. YELLOW (YELLOW); Glucose Urine UA NEGATIVE (NEGATIVE); Ketones Urine NEGATIVE (NEGATIVE); Leukocyte Esterase Urine NEGATIVE (NEGATIVE); Nitrite Urine NEGATIVE (NEGATIVE); Protein Urine NEGATIVE (NEG/TRACE); Specific Gravity Urine 1.015 (1.005-1.025); Urobilinogen Urine 0.2 EU/dL (0.2-1.0)
[2024-06-13 10:02] LABS: Creatinine Urine Random 53.33 mg/dL (20.00-300.00); Microalbumin Urine Random <1.3 mg/dL (<=30.0)
[2024-06-13 10:25] LABS: Anion Gap 12.1; BUN Creatinine Ratio 11.7; Calcium 9.1 mg/dL (8.5-10.1); Carbon Dioxide 29.5 mmol/L (21.0-32.0); Chloride 103 mmol/L (98-107); Estimated GFR (African America 44 (>=60 mL/min/1.73m^2); Estimated GFR (Non-African Ame 37 (>=60 mL/min/1.73m^2); Glucose 92 mg/dL (74-106); Magnesium 1.7 mg/dL (1.8-2.4); Potassium 4.6 mmol/L (3.5-5.1); Sodium 140 mmol/L (136-145); Uric Acid 5.3 mg/dL (2.6-6.0)
[2024-06-14 12:07] LABS: PTH, Intact 57 pg/mL (15-65)
== END 2024-06-13 09:18 | disposition home or self-care (01) ==
LOC: LAB 09:20
PROVIDERS: PCP Family Medicine
DX: N18.32 Chronic kidney disease, stage 3b (principal)
CPT/HCPCS: 36415; 80048; 81003; 82043; 82306; 82570; 83735; 83970; 84550; 85025

== ENCOUNTER 2024-11-01 20:06 | Emergency (ER) | payer SELFPAY ==
--- OUTSIDE RECORDS SUMMARY | 2024-02-10 09:00 | XMS_ITS ---
Author Organization [facility] [place] Address [address] [place] [address] Care Team Providers Care Bench Assembly Inspector Name Role Phone DO Juany Cochran Primary Care Provider Kenneth Martino [phone] Encounters Encounter Location Date Provider Diagnosis [facility] [place] [address] [place] [address] 02/10/2024 Kenneth Saravia Plan Of Treatment Next Appt Details Provider Name:oYlanda hines, 12/22/2024 04:00:00 PM, [address] [place], [address], Progress Notes * Deysi HERNANDEZ FDOB:1960 (64 yo F)Acc No.[id number]:02/10/2024 UNLOCKED PROGRESS NOTE Progress Note Patient: Deysi REESE Provider: Jimmie Saravia MD :1960 A ge:63 Y S ex:Female Date:02/10/2024 Address[address] [facility] Pcp:DO Juany Cochran Subjective: * Chief Complaints: * * Medical History: Objective: * Vitals: Assessment: Plan: * Treatment: * * Electronic signature of Kenneth Saravia MD, [id number] on 11/01/2024 at 08:12 PM EDT Sign off status: Pending Visit Status: R /S (Rescheduled) * Provider: Jimmie Saravia MD Date: 1 04/12/2023 Generated for Mehran sharp/Fay/Tyleritting on: 0 11/01/2024 08:12 PM EDT
--- OUTSIDE RECORDS SUMMARY | 2024-11-01 20:12 | XMS_ITS | Patient Health Record ---
Author Organization [facility] in [place] Address [address] [place] [address] Care Team Providers Care Diesel Mechanic Name Role Phone DO Juany Cochran Primary Care Provider UnavailKenneth Eagle Unavailable [phone] Yolanda Valverde Unavailable [phone] Allergies No Known Allergies Reason For Referral No Information Medications Medication SIG (Take, Route, Frequency, Duration) Notes Start Date End Date Status Atorvastatin Calcium 40 MG 1 tablet Oral ly Once a day Not-Taking Aspirin 81 81 MG 1 tablet Orally Once a day Active MAGnesium-Oxide 400 (240 Mg) MG 1 tablet Orally 3 times per day; Duration: 90 days 12/24/2023 Active Cholecalciferol 25 MCG (1000 UT) 1 capsule Orally Once a day; Duration: 90 days 07/23/2023 Active Lisinopril 5 MG 1 tablet Orally Daily; Duration: 90 day(s) Active Gabapentin 300 MG 1 capsule Orally Onc e a day Not-Taking Metoprolol Succinate ER 25 MG 1 tablet Orally Once a day Active tiZANidine HCl 4 MG 1 tablet at bedtime as needed Orally Once a day Not-Taking Albuterol Sulfate HFA 108 (90 Base) MCG/ACT 2 puffs as needed for SOB Inhalation every 4 hrs; Duration: 30 days Active Pravastatin Sodium 20 MG 1 tablet Orally Once a day Active Immunizations Vaccine Route Administration Date Status Comme nts SARS-COV-2 (COVID 19 Pfizer 30mcg/0.3mL) Unknown 01/14/2021 Administered Social History Tobacco Use: Social History Observation Description Date Details (start date - stop date) Current Smoker NA - NA Tobacco Use/Smoking Question Answer Notes Patient is a current smoker How often do you smoke cigarettes? every day How many cigarettes a day do you smoke? 5 or les s Additional Findings: Tobacco User Light cigarett e smoker ((1-9 cigs/day) Problems Problem Type SNOMED Code ICD Code Onset Dates Problem Status W/U Status Risk Notes Problem Essential hypertension (22930659) Essential (primary) hypertension (I10) Active confirmed Problem Hypomagnesemia (461283865) Hypomagnesemia (E83.42) Active confirmed Problem Acute renal failure syndrome (37181563) Acute kidney failure, unspecified (N17.9) Active confirmed Problem Nephrosclerosis (27848196) 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) Active confirmed Problem Chronic fatigue syndrome (disorder) (21967566) Chronic fatigue, unspecified (R53.82) Active confirmed Problem Chronic obstructive pulmonary disease (63432166) Chronic obstructive pulmonary disease (J44.9) Active confirmed Problem Vitamin D deficiency (85232604) Hypovitaminosis D (E55.9) Active confirmed Problem Mental disorder caused by drug (117592200) Cigarette nicotine dependence with nicotine-induced disorder (F17.219) Active confirmed Problem Ex-tobacco user (finding) (892466697) History of tobacco abuse (Z87.891) Active confirmed Problem History of myocardial infarction (754650036) History of myocardial infarction (I25.2) Active confirmed Problem Gastroesophageal reflux disease (224562571) Gastroesophageal reflux disease (K21.9) Active confirmed Problem Chronic kidney disease stage 3B (disorder) (154470221) CKD stage G3b/A2, GFR 30-44 and albumin creatinine ratio 30-299 mg/g (N18.32) Active confirmed Vital Signs Blood pressure diastolic 90 mm Hg 06/23/2024 Height 64 in 06/23/2024 Blood pressure systolic 122 mm Hg 06/23/2024 Weight 149.6 lbs 06/23/2024 BMI 25.68 kg/m2 06/23/2024 Encounters Encounter Location Date Provider Diagnosis [facility] [address] [place] [address] 12/24/2023 Yolanda Valverde CKD stage G3b/A2, GF R 30-44 and albumin creatinine ratio 30-299 mg/g N18.32 ; Essential (primary) hypertension I10 and Hypomagnesemia E83.42 [facility] [address] [place] [address] 06/23/2024 Yolanda Valverde CKD stage G3b/A2, GF R 30-44 and albumin creatinine ratio 30-299 mg/g N18.32 ; Essential (primary) hypertension I10 ; Hypomagnesemia E83.42 and Atrophy of kidney (terminal) N26.1 [facility] [address] [address] 11/27/[address] [address] 04/14/2024 Yolanda Valverde CKD stage G3b/A2, GF R 30-44 and albumin creatinine ratio 30-299 mg/g N18.[address] [address] 04/22/2024 Yolanda Valverde [facility] [address] [address] 10/26/2024 Yolanda Winkler Hypovitaminosis D E55.9 Assessments Encounter Date Diagnosis (ICD Code) Assessment Notes Treatment Notes Treatment Clinical Notes Section Notes 12/24/2023 Essential (primary) hypertension (ICD-10 - I10) 12/24/2023 CKD stage G3b/A2, GFR 30-44 and albumin creatinine ratio 30-299 mg/g (ICD-10 - N18.32) Creatinine and eGFR are stable at the pt's baseline. BP and volume status are at goal. PTH WNL. Vit D WNL. No urine results available and the lab pt used is now closed for the afternoon. Will call first thing in the morning tomorrow to obtain UA and MACR results. Magnesium was low at 1.6. Will start pt on mag oxide 400 mg daily and follow up next mag level. Pt has known marked atrophy of the left kidney. Most recent US showed no concerning mass. Right kidney was unremarkable. 06/23/2024 Essential (primary) hypertension (ICD-10 - I10) 06/23/2024 CKD stage G3b/A2, GFR 30-44 and albumin creatinine ratio 30-299 mg/g (ICD-10 - N18.32) Pt's renal function is stable in her baseline CKD stage 3B. Creatinine is 1.45 with eGFR of 37. Her BP and volume status are stable. Electrolytes are stable. Her magnesium is slightly improved but still borderline low at 1.7. She has been taking mag ox 400 mg BID. Advised pt to increase dose to 2 tabs in the morning and one at night, so 3 tabs per day total. Pt states her PCP recommended trying a different BP medication as the lisinopril could be causing the muscle cramping. However, pt has been on lisinopril for a while and her muscle cramping is more recent. Will see how pt's muscle cramping improves with the increase to her magnesium supplements. Advised pt to give it about 2 weeks and if her cramping is not improved, she is to call the office and we will try to replace her lisinopril with Losartan. No proteinuria present at this time. Will request urology records from Dr. Vergara at [facility] due to pt mentioning possible surgery removing her left kidney. Will also discuss this with Dr. Willson. 04/14/2024 CKD stage G3b/A2, GFR 30-44 and albumin creatinine ratio 30-299 mg/g (ICD-10 - N18.32) 10/26/2024 Hypovitaminosis D (ICD-10 - E55.9) 06/23/2024 Hypomagnesemia (ICD-10 - E83.42) 12/24/2023 Hypomagnesemia (ICD-10 - E83.42) 06/23/2024 Atrophy of kidney (terminal) (ICD-10 - N26.1) Plan Of Treatment Pending Test Test Name Order Date UA (URINALYSIS, COMPLETE) 12/20/2022 UA (URINALYSIS, COMPLETE) 07/23/2023 UA (URINALYSIS, COMPLETE) 10/22/2023 UA (URINALYSIS, COMPLETE) 12/24/2023 UA (URINALYSIS, COMPLETE) 06/23/2024 ALBUMIN, BLOOD 07/23/2023 ALBUMIN, BLOOD 12/20/2022 MAGNESIUM 12/20/2022 MAGNESIUM 12/24/2023 MAGNESIUM 10/22/2023 MAGNESIUM 04/14/2024 CBC WITH DIFF 10/22/2023 CBC WITH DIFF 12/24/2023 CBC WITH DIFF 07/23/2023 CBC WITH DIFF 12/20/2022 BMP (BASIC MET PANEL - W/GFR) 12/20/2022 BMP (BASIC MET PANEL - W/GFR) 07/23/2023 BMP (BASIC MET PANEL - W/GFR) 12/24/2023 BMP (BASIC MET PANEL - W/GFR) 10/22/2023 MICROALBUMIN with ALB/CREAT RATIO, URINE (MALB)) 10/22/2023 MICROALBUMIN with ALB/CREAT RATIO, URINE (MALB)) 12/24/2023 MICROALBUMIN with ALB/CREAT RATIO, URINE (MALB)) 07/23/2023 MICROALBUMIN with ALB/CREAT RATIO, URINE (MALB)) 12/20/2022 PHOSPHORUS 12/20/2022 PHOSPHORUS 10/22/2023 PTH INTACT (PARATHYROID HORMONE) 024 PTH INTACT (PARATHYROID HORMONE) 023 PTH INTACT (PARATHYROID HORMONE) 024 PTH INTACT (PARATHYROID HORMONE) 024 PTH INTACT (PARATHYROID HORMONE) 025 URIC ACID 10/22/2023 URIC ACID 06/23/2024 URIC ACID 12/24/2023 VITAMIN D, 25 LEVEL (TOTAL) 12/24/2023 VITAMIN D, 25 LEVEL (TOTAL) 10/22/2023 VITAMIN D, 25 LEVEL (TOTAL) 12/20/2022 VITAMIN D, 25 LEVEL (TOTAL) 07/23/2023 VITAMIN D, 25 LEVEL (TOTAL) 06/23/2024 US Renal 10/22/2023 PROTEIN and CREATININE w RATIO (RANDOM U RINE) (SPOT) 06/23/2024 Creatine Kinase 04/14/2024 BMP (BASIC MET PANEL) w/eGFR CKD-EPI CHEM-R (RENAL FUNC PANEL) w/eGFR CKD-EPI 06/23/2024 CBC WITH DIFF 06/23/2024 Future Test Test Name Order Date CK (CPK) 10/23/2023 MAGNESIUM 10/23/2023 BMP (BASIC MET PANEL - W/GFR) 10/23/2023 TSH 10/23/2023 Next Appt Details Provider Name:Yolanda Flores donny, 12/22/2024 04:00:00 PM, [address], [place], [address], Insurance Providers Payer Name Payer Address Payer Phone Subscriber Number Group Number Insured Name Patient Relationship to Insured Coverage Start Date Coverage End Date [employer] [place] [employer] [address] [facility] [place] [address] [id number] Deysi Barros Self - patient is the insured Medical (General) History Medical History History ICD Code Chronic obstructive pulmonary disease J4 4.9 Hyperlipidemia E78.5 Embolic stroke I63.9 Pyelonephritis N12 Gastroesophageal reflux disease K21.9 Diverticulosis of large intestine K57.30 Cigarette nicotine dependence with nicot ine-induced disorder F17.219 Hypertension since 07/2021 Surgical History Surgery Date(Month/Year) Hospitalization History Reason Date(Month/Year) UTI - Sepsisi Pneumonia [facility]
--- OUTSIDE RECORDS SUMMARY | 2024-11-01 20:12 | XMS_ITS | Encounter Summary ---
Author Organization [facility] Address [address] [place] [address] Phone Care Team Providers Care Assistant Production Editor Name Role Phone Shaikh SHARMIN Thompson Primary Care Provider [phone] Encounter Details Date Type Department Care Team (Late st Contact Info) Description 07/14/2024 Scanned Document [facility] [address] [place] [address] Scanning, Generic Provider Social History Tobacco Use Types Packs/Day Years Used Date Smoking Tobacco: Every Day Cigarettes Smokeless Tobacco: Never Alcohol Use Standard Drinks/Week Comments Never 0 (1 standard drink = 0.6 oz pur e alcohol) Comments Unknown Sex and Gender Information Value Date Recorded Sex Assigned at Not on file Legal Sex Female 9:53 AM EST Gender Identity Not on file Sexual Orientation Not on file COVID-19 Exposure Response Date Recorded In the last 10 days, have yo u been in contact with someone who was confirmed or suspected to have Coronavirus/COVID-19? No / Unsure 07/02/2024 12:14 PM EDT documented as of this encounter Plan of Treatment Upcoming Encounters Date Type Department Care Team (Late st Contact Info) Description 01/15/2025 10:00 AM EST Office Visit [address] [place] [address] Jaycob Newman MD [address] [facility] [address] [place] [address] documented as of this encounter Visit Diagnoses Not on filedocumented in this encounter Additional Health Concerns Assessment Noted Time A fall risk assessment has been complete d for the patient 06/02/2024 8:50 AM EDT documented as of this encounter Care Teams Assistant Production Editor Relationship Specialty Start Date End Date Shaikh Thompson MD [address] [place] [address] PCP - General Internal Medicine 03/12/23 documented as of this encounter
--- OUTSIDE RECORDS SUMMARY | 2024-11-01 20:12 | XMS_ITS | Encounter Summary ---
Author Organization [facility] Address [address] [place] [address] Care Team Providers Care Furnace Converter Name Role Phone Shaikh SHARMIN Thompson Primary Care Provider [phone] Shaikh SHARMIN Thompson Primary Care Provider [phone] Mikhail Dutta MD Primary Care Provider [phone] Sadaf Hill NP Unavailable [phone] Encounter Details Date Type Department Care Team (Late st Contact Info) Description 02/21/2023 Orders Only [facility] [address] [place] [phone] Shaikh Thompson MD [address] [place] [address] Social History Tobacco Use Types Packs/Day Years Used Date Smoking Tobacco: Every Day Cigarettes Last attempted to quit: 07/19/2021 Smokeless Tobacco: Never Alcohol Use Standard Drinks/Week Comments Never 0 (1 standard drink = 0.6 oz pur e alcohol) PHQ-2 Answer Date Recorded Patient Health Questionnaire-2 Score 0 02/19/2023 Comments Unknown Sex and Gender Information Value Date Recorded Sex Assigned at Not on file Legal Sex Female 7:17 PM EDT Gender Identity Not on file Sexual Orientation Not on file documented as of this encounter Plan of Treatment Not on file documented as of this encounter Procedures Procedure Name Priority Date/Time Associated Diagnosis Comments MAMM SCREEN CAD BILAT10.00 %28 Routine 02/19/2023 10:55 AM EST documented in this encounter Results * MAMM SCREEN CAD BILAT10.00 %28 (02/19/2023 10:55 AM EST) Anatomical Region Laterality Modality Radiographic Janessa ging Shaikh Donna FINNEY IMG XR PROCEDURES Final Result documented in this encounter Visit Diagnoses Not on filedocumented in this encounter Care Teams Furnace Converter Relationship Specialty Start Date End Date Shaikh Thompson MD PCP - General Internal Medicine 09/24/22 05/07/23 Shaikh Thompson MD [address] [place] [phone] PCP - General Internal Medicine 05/08/23 09/29/23 Mikhail Dutta MD [address] [place] [phone] PCP - General Family Medicine 09/30/23 Sadaf Hill NP [address] [place] [phone] Nurse Practitioner Family Medicine 09/30/23 documented as of this encounter
--- OUTSIDE RECORDS SUMMARY | 2024-11-01 20:12 | XMS_ITS | Encounter Summary ---
Author Organization [facility] Address [facility] [place] [address] Care Team Providers Care Supervisor Mold Yard Name Role Phone Shaikh SHARMIN Thompson Primary Care Provider [phone] Source Comments In the event this information is protected by the Federal Confidentiality of Alcohol and Drug AbusePatient Records regulations: The Federal rules restrict any use of the information to criminally investigate or prosecute any alcohol or drug abuse patient.[facility] Encounter Details Date Type Department Care Team (Late st Contact Info) Description 08/22/2022 Patient [facility] Radiology Ultrasound [address] [place] [address] Carine Farris, RDMS Ultrasound Prep Social History Tobacco Use Types Packs/Day Years Used Date Smoking Tobacco: Former Cigarettes Q uit: 08/18/2017 Smokeless Tobacco: Never Alcohol Use Standard Drinks/Week Comments Yes 0 (1 standard drink = 0.6 oz pur e alcohol) Area Deprivation Index Answer Date Rajesh rded National Score (1-100), lower number is lower ri sk 59 08/09/2022 State Score (1-10), lower number is lower risk 4 08/09/2022 Data from: https://www.neighborhoodatlas.medicine.[facility].edu/. Last address used for calculation [address] 08/09/2022 Comments No Sex and Gender Information Value Date Recorded Sex Assigned at Not on file Legal Sex Female 9:24 AM EDT Gender Identity Not on file Sexual Orientation Not on file documented as of this encounter Functional Status * Are you deaf or do you have serious difficulty hearing? Answer Date of Assessment Author No 09/07/2014 2:03 PM EDT Melany Aguila MA * Are you blind or do you have serious difficulty seeing, even when wearing glasses? Answer Date of Assessment Author No 09/07/2014 2:03 PM EDT Melany Aguila MA * Do you have serious difficulty walking or climbing stairs? Answer Date of Assessment Author No 09/07/2014 2:03 PM EDT Melany Aguila MA * Do you have difficulty dressing or bathing? Answer Date of Assessment Author No 09/07/2014 2:03 PM EDT Melany Aguila MA * Because of a physical, mental, or emotional condition, do you have difficulty doing errands alone such as visiting a doctor's office or shopping? Answer Date of Assessment Author No 09/07/2014 2:03 PM EDT Melany Aguila MA documented as of this encounter Mental Status * Because of a physical, mental, or emotional condition, do you have serious difficulty concentrating, remembering, or making decisions? Answer Entry Date Author No 09/07/2014 2:03 PM EDT Melany Aguila MA documented in this encounter Plan of Treatment Not on file documented as of this encounter Visit Diagnoses Not on filedocumented in this encounter Care Teams Supervisor Mold Yard Relationship Specialty Start Date End Date Shaikh Thompson MD [address] [place] [address] PCP - General Primary Care 08/09/22 documented as of this encounter
--- OUTSIDE RECORDS SUMMARY | 2024-11-01 20:12 | XMS_ITS | Encounter Summary ---
Author Organization [facility] Address [address] [place] [address] Care Team Providers Care Gravity Prospecting Operator Name Role Phone Karina Nichols CNP Primary Care Provider [phone] Shaikh SHARMIN Thompson Primary Care Provider [phone] Source Comments In the event this information is protected by the Federal Confidentiality of Alcohol and Drug AbusePatient Records regulations: The Federal rules restrict any use of the information to criminally investigate or prosecute any alcohol or drug abuse patient.[facility] Encounter Details Date Type Department Care Team (Late st Contact Info) Description 03/13/2016 Patient Msg Medical Records [address] [place] [address] Provider, [facility] Colonoscopy Prep Instructions for 03/27/16 Social History Tobacco Use Types Packs/Day Years Used Date Smoking Tobacco: Every Day Cigarettes Alcohol Use Standard Drinks/Week Comments Yes 0 (1 standard drink = 0.6 oz pur e alcohol) Comments No Sex and Gender Information Value [...] of Assessment Author No 09/07/2014 2:03 PM [place] Melany Aguila MA documented as of this [...] on filedocumented in this encounter Care Teams Gravity Prospecting Operator Relationship Specialty Start Date End Date Karina Nichols CNP PCP - General Family Medicine 07/28/14 08/08/22 Shaikh Thompson MD [address] [place], [place] [address] [address] PCP - General Primary Care 08/09/22 documented as of this encounter
--- OUTSIDE RECORDS SUMMARY | 2024-11-01 20:12 | XMS_ITS | Encounter Summary ---
Author Organization [facility] Address [address] [place] [address] Care Team Providers Care Manager Med Surg Name Role Phone Shaikh SHARMIN Thompson Primary Care Provider [phone] Mikhail Dutta MD Primary Care Provider [phone] Sadaf Hill NP Unavailable [phone] Encounter Details Date Type Department Care Team (Late st Contact Info) Description 05/23/2023 Orders Only [facility] [address] [facility] [address] [place] [address] Shaikh Thompson MD [address] [place] [address] Social History Tobacco Use Types Packs/Day Years Used Date Smoking Tobacco: Every Day Cigarettes Last attempted to quit: 07/19/2021 Passive Smoke Exposure: Current Smokeless Tobacco: Never Alcohol Use Standard Drinks/Week Comments Never 0 (1 standard drink = 0.6 oz pur e alcohol) PHQ-2 Answer Date Recorded Patient Health Questionnaire-2 Score 0 05/13/2023 Comments Unknown Sex and Gender Information Value Date Recorded Sex Assigned at Not on file Legal Sex Female 7:17 PM EDT Gender Identity Not on file Sexual Orientation Not on file documented as of this encounter Plan of Treatment Not on file documented as of this encounter Procedures Procedure Name Priority Date/Time Associated Diagnosis Comments US RENAL COMPLETE Routine 05/23/2023 11:57 AM EDT documented in this encounter Results * US renal complete (05/23/2023 11:57 AM EDT) Anatomical Region Laterality Modality Kidney Ultrasound us Shaikh Donna FINNEY IMG US PROCEDURES Final Result documented in this encounter Visit Diagnoses Not on filedocumented in this encounter Care Teams Manager Med Surg Relationship Specialty Start Date End Date Shaikh Thompson MD [address] [place] [phone] PCP - General Internal Medicine 05/08/23 09/29/23 Mikhail Dutta MD [address] [place] [phone] PCP - General Family Medicine 09/30/23 Sadaf Hill NP [address] [place] [phone] Nurse Practitioner Family Medicine 09/30/23 documented as of this encounter
--- OUTSIDE RECORDS SUMMARY | 2024-11-01 20:12 | XMS_ITS | Encounter Summary ---
Author Organization [facility] Address [address] [place] [address] Phone Care Team Providers Care Tapper Supervisor Name Role Phone Shaikh SHARMIN Thompson Primary Care Provider [phone] Shaikh SHARMIN Thompson Primary Care Provider [phone] Encounter Details Date Type Department Care Team (Late st Contact Info) Description 02/14/2023 Scanned Document [facility] [address] [place] [phone] Scanning, Generic Provider Social History Tobacco Use Types Packs/Day Years Used Date Smoking Tobacco: Former Cigarettes Smokeless Tobacco: Never Alcohol Use Standard [...] Description 01/15/2025 10:00 AM EST Office Visit [address] [place] [address] Jaycob Newman MD [address] [facility] [address] [place] [address] documented as of this encounter Visit Diagnoses Not on filedocumented in this encounter Care Teams Tapper Supervisor Relationship Specialty Start Date End Date Shaikh Thompson MD PCP - General 02/18/99 03/11/23 Shaikh Thompson MD [address] [place] [address] PCP - General Internal Medicine 03/12/23 documented as of this encounter
--- OUTSIDE RECORDS SUMMARY | 2024-11-01 20:12 | XMS_ITS | Clinical Summary ---
Author Organization [facility] Address [id number] [place] [address] Care Team Providers Care Repairer Pump Name Role Phone Shaikh SHARMIN Thompson Primary Care Provider [phone] Social History Tobacco Use Types Packs/Day Years Used Date Smoking Tobacco: Never Assessed Childcare Answer Date Recorded Childcare Unknown 07/30/2018 Employment Answer Date Recorded Employment Unknown 07/30/2018 Comments Unknown Sex and Gender Information Value Date Recorded Sex Assigned at Not on file Legal Sex Female 11:33 AM EDT Gender Identity Not on file Sexual Orientation Not on file Plan of Treatment Health Maintenance Due Date Last Done Comments Depression Screening 1974 Tobacco Screening 1974 Adult BMI Screening 1980 DTaP,Tdap and Td Vaccines (1 - Tdap) 1981 Pap Smear 05/12/1983 Zoster (Shingles) Vaccine (1 of 2) 2012 Influenza Vaccine 10/19/2024 Medical Devices Not on file Insurance [facility] MEDICAID Care Teams Repairer Pump Relationship Specialty Start Date End Date DiyawShaikh austin MD PCP - General Internal Medicine 12/21/22
--- OUTSIDE RECORDS SUMMARY | 2024-11-01 20:12 | XMS_ITS | Clinical Summary ---
Author Organization [facility] Address [address] [place] [address] Phone Care Team Providers Care Predatory Hunter Name Role Phone Shaikh SHARMIN Thompson Primary Care Provider [phone] Allergies Active Allergy Reactions Criticality Noted Date Comments Codeine Swelling High 03/12/2023 Medications aspirin 81 mg EC tablet Take 1 tablet (81 mg) by mouth once daily. Active lisinopril 20 mg tablet Take 1 tablet (20 mg) by mouth once daily. 3 Active albuterol 90 mcg/actuation inhaler Inhale 1 puff every 6 hours if needed. Active magnesium oxide (Mag-Ox) 400 mg (241.3 mg magnesium) tablet Take 1 tablet (400 mg) by mouth once daily. 5 Active cholecalciferol (Vitamin D-3) 25 mcg (1,000 units) capsule Take 1 capsule (25 mcg) by mouth once daily. Active metoprolol succinate XL (Toprol-XL) 25 mg 24 hr tabletIndications:P rimary hypertension Take 1 tablet (25 mg) by mouth once daily. Do not crush or chew. 90 tablet 3 5 06/03/19 26 Active rosuvastatin (Crestor) 20 mg tabletIndications:H yperlipidemia, unspecified hyperlipidemia type Take 1 tablet (20 mg) by mouth once daily. 90 tablet 3 5 09/22/19 26 Active Active Problems Problem Noted Date Diagnosed Date BMI 25.0-25.9,adult 06/02/2024 Stage 3b chronic kidney disease (Multi) 06/03/19 COPD (chronic obstructive pulmonary disease) (Mu lti) 06/02/2024 Intermittent claudication 06/02/2024 Diminished pulses in lower extremity 06/02/2024 Angina pectoris 06/02/2024 Current smoker 03/12/2023 Chest discomfort 02/13/2023 Claudication 02/13/2023 Elevated troponin 02/13/2023 Embolic stroke (Multi) 02/13/2023 Hypertension 02/13/2023 Hyperlipemia 02/13/2023 Encounters Date Type Department Care Team Description 09/18/2024 Telephone [facility] [address] [place] [phone] Elaine Lewis RN Med Refill 08/18/2024 Telephone [facility] [address] [place] [phone] Elaine Lewis RN Results 08/13/2024 9:45 AM EDT - 08/13/2024 11:59 PM EDT Hospital Encounter [place] [address] [place] [address] [place] [phone] Diminished pulses in lower extremity; Intermittent claudication Discharge Disposition: Home 08/13/2024 Travel 08/07/2024 Travel from Last 3 Months Immunizations Immunization Administration Dates Next Due PPD Test 06/22/2022 Pneumococcal conjugate vaccine, 20-valent (PREVN AR 20) 01/18/2024 RSV, 60 Years And Older (AREXVY) 01/18/2024 Family History Medical History Relation Name Comments Atrial fibrillation Brother Heart attack Brother Heart attack Father Hypertension Sister Relation Name Status Comments Brother Father Sister Social History Tobacco Use Types Packs/Day Years Used Date Smoking Tobacco: Every Day Cigarettes Smokeless Tobacco: Never Tobacco Cessation:Ready to Q uit: No; Counseling Given: Yes Alcohol Use Standard Drinks/Week Comments Never 0 (1 standard drink = 0.6 oz pur e alcohol) Comments Unknown Sex and Gender Information Value Date Recorded Sex Assigned at Not on file Legal Sex Female 9:53 AM EST Gender Identity Not on file Sexual Orientation Not on file Last Filed Vital Signs Vital Sign Reading Time Taken Comments Blood Pressure 125/77 07/02/2024 12:34 PM EDT Pulse 66 07/02/2024 12:34 PM EDT Temperature - - Respiratory Rate 21 07/02/2024 12:14 PM EDT Oxygen Saturation - - Inhaled Oxygen Concentration - - Weight 66.2 kg (146 lb) 06/02/2024 8:51 AM EDT Height 162.6 cm (5' 4 ) 06/02/2024 8:51 AM EDT Body Mass Index 25.06 06/02/2024 8:51 AM EDT Plan of Treatment Upcoming Encounters Date Type Department Care Team (Late st Contact Info) Description 01/15/2025 10:00 AM EST Office Visit [facility] [address] [place] [address] Homero Newman MD [address] [facility] [address] [place] [address] Health Maintenance Due Date Last Done Comments CT Colonography 1962 FIT-DNA (Cologuard) 1962 FIT 1962 HIV Screening 1962 Lipid Panel 1962 Sigmoidoscopy 1962 Yearly Adult Physical 1962 MMR Vaccines (1 of 1 - Standard series) 05/12/1963 Diabetes Screening 1980 Hepatitis C Screening 1980 CKD: Urine Protein Screening 1981 Cervical Cancer Screening 05/12/1983 HPV/Cotest 05/12/1983 Pap Smear 05/12/1983 DTaP/Tdap/Td Vaccines (1 - Tdap) 1984 Zoster Vaccines (1 of 2) 2012 Mammogram 02/26/2023 02/26/2022, 12/08/2020, 12/08/2020 COVID-19 Vaccine (1 - 2023-2 5 season) 2024 Influenza Vaccine (#1) 2024 Colonoscopy 03/13/2032 03/13/2022 Colorectal Cancer Screening 03/13/2032 Pneumococcal Vaccine Completed 01/18/2024 RSV High Risk: (Elderly (60+ ) or Population) Completed 01/18/2024 HIB Vaccines Aged Out No longer eligi ble based on patient's age to complete this topic HPV Vaccines Aged Out No longer eligi ble based on patient's age to complete this topic Hepatitis A Vaccines Aged Out No long er eligible based on patient's age to complete this topic Hepatitis B Vaccines Aged Out No long er eligible based on patient's age to complete this topic IPV Vaccines Aged Out No longer eligi ble based on patient's age to complete this topic Meningococcal Vaccine Aged Out No franco king eligible based on patient's age to complete this topic Rotavirus Vaccines Aged Out No longer eligible based on patient's age to complete this topic Procedures Procedure Name Priority Date/Time Associated Diagnosis Comments VASC US PVR WITHOUT EXERCISE Routine 08/13/2024 10:42 AM EDT Diminished pulses in lower extremity Intermittent claudication from Last 3 Months Results * Vascular US PVR Without Exercise (08/13/2024 10:42 AM EDT) Anatomical Region Laterality Modality Lower Extremities Echocardiograp hy 08/13/2024 10:5 0 AM EDT Narrative 08/14/2024 5:38 PM EDT [address], [address] [place] [address] Vascular Lab Report VASC US PVR WITHOUT EXERCISE Patient Name: DEYSI Payne Physician: [id number] Homero Newman MD, [facility] Study Date: 08/13/2024 Ordering Provider: [id number] HOMERO NEWMAN MRN/PID: [id number] Fellow: Technologist: Juhi Stoddard RDCS, T Date of /Age: 3 1960 64 years Technologist 2: Gender: F Admission Status: Outpatient Location Performed: [facility] Diagnosis/ICD: Other specified symptoms and signs involving the circulatory and respiratory systems-R09.89; Peripheral vascular disease, unspecified-I73.9 Indication: HTN, Hyperlipidemia, History of Ischemic CVA, Angina, COPD, CKD-Stage IIIb, Tobacco Abuse CPT Codes: 31201 Peripheral artery PVR (multi segmental pressure CONCLUSIONS: Right Lower PVR: There is evidence of mild disease at the tibial level. Monophasic flow is noted in the right superficial femoral artery, right popliteal artery, right posterior tibial artery and right dorsalis pedis artery. Multiphasic flow is noted in the right common femoral artery. Mildly blunted PVR waveform below the knee. Left Lower PVR: No evidence of arterial occlusive disease in the left lower extremity at rest. Multiphasic flow is noted in the left common femoral artery, left superficial femoral artery, left popliteal artery, left posterior tibial artery and left dorsalis pedis artery. Normal PVR waveform in the left lower extremity. Imaging & Doppler Findings: RIGHT Lower PVR Pressures Ratios Right High Thigh 114 mmHg 0.97 Right Low Thigh 137 mmHg 1.17 Right Calf 103 mmHg 0.88 Right Posterior Tibial (Ankle) 84 mmHg 0.72 Right Dorsalis Pedis (Ankle) 89 mmHg 0.76 LEFT Lower PVR Pressures Ratios Left High Thigh 127 mmHg 1.09 Left Low Thigh 99 mmHg 0.85 Left Calf 117 mmHg 1.00 Left Posterior Tibial (Ankle) 108 mmHg 0.92 Left Dorsalis Pedis (Ankle) 86 mmHg 0.74 Right Left Brachial Pressure 117 mmHg 113 mmHg [id number] Homero Newman MD, FACC Final Procedure Note Homero Newman MD - 08/14/[address], [place] [address] Vascular Lab Report VASC US PVR WITHOUT EXERCISE Patient Name: DEYSI Payne Physician: [id number] Metcalf MD, FACC Study Date: 08/13/2024 Ordering Provider: [id number] JUAN RAMON NEWMAN MRN/PID: [id number] Fellow: Technologist: Juhi Moreira RVT Date of /Age: 3 1960 / 64 years Technologist 2: Gender: F Admission Status: Outpatient Location Performed: [facility] Diagnosis/ICD: Other specified symptoms and signs involving thecirculatory and respiratory systems-R09.89; Peripheral vascular disease, unspecified-I73.9 Indication: HTN, Hyperlipidemia, History of Ischemic CVA, Angina,COPD, CKD-Stage IIIb, Tobacco Abuse CPT Codes: 07254 Peripheral artery PVR (multi segmental pressure CONCLUSIONS: Right Lower PVR: There is evidence of mild disease at the tibial level.Monophasic flow is noted in the right superficial femoral artery, rightpopliteal artery, right posterior tibial artery and right dorsalis pedisartery. Multiphasic flow is noted in the right common femoral artery.Mildly blunted PVR waveform below the knee. Left Lower PVR: No evidence of arterial occlusive disease in the leftlower extremity at rest. Multiphasic flow is noted in the left commonfemoral artery, left superficial femoral artery, left popliteal artery,left posterior tibial artery and left dorsalis pedis artery. Normal PVRwaveform in the left lower extremity. Imaging & Doppler Findings: RIGHT Lower PVR Pressures Ratios Right High Thigh 114 mmHg 0.97 Right Low Thigh 137 mmHg 1.17 Right Calf 103 mmHg 0.88 Right Posterior Tibial (Ankle) 84 mmHg 0.72 Right Dorsalis Pedis (Ankle) 89 mmHg 0.76 LEFT Lower PVR Pressures Ratios Left High Thigh 127 mmHg 1.09 Left Low Thigh 99 mmHg 0.85 Left Calf 117 mmHg 1.00 Left Posterior Tibial (Ankle) 108 mmHg 0.92 Left Dorsalis Pedis (Ankle) 86 mmHg 0.74 Right Left Brachial Pressure 117 mmHg 113 mmHg [id number] Homero Newman MD, FACC at5:38:36 PM Final Homero Newman MD CV VASCULAR PROCEDURES Final Result from Last 3 Months Insurance [employer] MEDICAID Care Teams Predatory Hunter Relationship Specialty Start Date End Date DiyawShaikh austin MD [id number] [id number] PCP - General Internal Medicine 03/12/23
--- OUTSIDE RECORDS SUMMARY | 2024-11-01 20:12 | XMS_ITS | Clinical Summary ---
Author Organization [facility] Address [address], [address] [place] [address] Care Team Providers Care Special Services Director Name Role Phone Unavailable Primary Care Provider Unavailabl e Family History Medical History Relation Name Comments Breast Cancer Maternal Aunt Relation Name Status Comments Maternal Aunt Social History Tobacco Use Types Packs/Day Years Used Date Smoking Tobacco: Never Assessed Comments No Sex and Gender Information Value Date Recorded Sex Assigned at Not on file Legal Sex Female 2:09 PM EST Gender Identity Not on file Sexual Orientation Not on file Plan of Treatment Health Maintenance Due Date Last Done Comments Depression Screen 1974 HIV screen 1977 Hepatitis C screen 1980 DTaP/Tdap/Td vaccine (1 - Tdap) 1981 Pap smear 05/12/1983 Cervical cancer screen 1992 HPV (without or with Pap) 1992 Lipids 2002 Colonoscopy 05/12/2007 Colorectal Cancer Screen 05/12/2007 FIT/FOBT: Average risk 05/12/2007 Fecal-DNA (Cologuard): [place] ge risk 05/12/2007 Sigmoidoscopy/CT colonography 05/12/2007 Pneumococcal 50+ years Vacci ne (1 of 1 - PCV) 2012 Shingles vaccine (1 of 2) 2012 Breast cancer screen 12/08/2022 12/08/2020 COVID-19 Vaccine (3 - 2023-2 5 season) 2023 06/25/2020, 06/04/2020 Flu vaccine (#1) 09/18/2024 Respiratory Syncytial Virus (RSV) or age 60 yrs+ (1 - 1-dose 75+ series) 2037 Hepatitis A vaccine Aged Out No longe r eligible based on patient's age to complete this topic Hepatitis B vaccine Aged Out No longe r eligible based on patient's age to complete this topic Hib vaccine Aged Out No longer eligi ble based on patient's age to complete this topic Meningococcal (ACWY) vaccine Aged Out No longer eligible based on patient's age to complete this topic Meningococcal B vaccine Aged Out No l onger eligible based on patient's age to complete this topic Polio vaccine Aged Out No longer elig ible based on patient's age to complete this topic Procedures Procedure Name Priority Date/Time Associated Diagnosis Comments BERTA KYARA DIGITAL SCREEN SELF REFERRAL W OR WO CAD BILATERAL Routine 12/08/2020 1:30 PM EDT Encounter for screening mammogram for malignant neoplasm of breast from Last 3 Months or Most Recently Relevant to Health Maintenance Results * BERTA KYARA DIGITAL SCREEN SELF REFERRAL W OR WO CAD BILATERAL (12/08/2020 1:30 PM EDT) Anatomical Region Laterality Modality Breast Bilateral Mammography 12/08/2020 5:20 PM EDT Impressions 12/16/2020 11:32 AM EDT No mammographic evidence of malignancy. BIRADS: BIRADS - CATEGORY 2 Benign Findings. Normal interval follow-up is recommended in 12 months. OVERALL ASSESSMENT - BENIGN A letter of notification will be sent to the patient regarding the results. The [employer] recommends annual mammograms for women 40 years and older. Narrative 12/16/2020 11:32 AM EDT EXAMINATION: SCREENING DIGITAL BILATERAL MAMMOGRAM WITH TOMOSYNTHESIS, [...] distortion or significant interval changes are detected. Edwar Swenson MD IMG MAMMOGRAPHY ORDERABLES Fin al Result from Last 3 Months or Most Recently Relevant to Health Maintenance
--- OUTSIDE RECORDS SUMMARY | 2024-11-01 20:12 | XMS_ITS | Encounter Summary ---
Author Organization [facility] Address [address] [place] [address] Care Team Providers Care Collect On Delivery Clerk Name Role Phone Shaikh SHARMIN Thompson Primary Care Provider [phone] Mikhail Dutta MD Primary Care Provider [phone] Sadaf Hill HOTBED OPERATOR Unavailable [phone] Encounter Details Date Type Department Care Team (Late st Contact Info) Description 08/12/2023 [facility] Only [facility] [address] [place] [address] Shaikh Thompson MD [address] [place] [address] Social History Tobacco Use Types Packs/Day Years Used Date Smoking Tobacco: Every Day Cigarettes Last attempted to quit: 07/19/2021 Passive Smoke Exposure: Current Smokeless Tobacco: Never Alcohol Use Standard Drinks/Week Comments Never 0 (1 standard drink = 0.6 oz pur e alcohol) PHQ-2 Answer Date Recorded Patient Health Questionnaire-2 Score 0 08/12/2023 Comments Unknown Sex and Gender Information Value Date Recorded Sex Assigned at Not on file Legal Sex Female 7:17 PM EDT Gender Identity Not on file Sexual Orientation Not on file documented as of this encounter Functional Status * Over the past 2 weeks, how often have you been bothered by any of the following problems? Question Answer Date of Assessment Author Little interest or pleasure in doing things Not at all 08/12/2023 6:51 PM EDT Guerrero Ley MA Feeling down, depressed, or hopeless Not at all 08/12/2023 6:51 PM EDT Guerrero Ley M A Patient Health Questionnaire -2 Score 0 08/12/2023 6:51 PM EDT Guerrero Ley M A documented as of this encounter Plan of Treatment Not on file documented as of this encounter Visit Diagnoses Not on filedocumented in this encounter Care Teams Collect On Delivery Clerk Relationship Specialty Start Date End Date Shaikh Thompson MD [address] [place] [phone] PCP - General Internal Medicine 05/08/23 09/29/23 Mikhail Dutta MD [address] [place] [id number] PCP - General Family Medicine 09/30/23 Sadaf Hill NP [address] [place] [id number] Nurse Practitioner Family Medicine 09/30/23 documented as of this encounter
--- OUTSIDE RECORDS SUMMARY | 2024-11-01 20:12 | XMS_ITS | Encounter Summary ---
Author Organization [facility] Address [address] [place] [address] Care Team Providers Care Economics Analyst Name Role Phone Karina Nichols CNP Primary Care Provider [phone] Shaikh SHARMIN Thompson Primary Care Provider [phone] Source Comments In the event this information is protected by the Federal Confidentiality of Alcohol and Drug AbusePatient Records regulations: The Federal rules restrict any use of the information to criminally investigate or prosecute any alcohol or drug abuse patient.[facility] Encounter Details Date Type Department Care Team (Late st Contact Info) Description 02/08/2016 Patient Msg Medical Records [facility] [place] [address] Provider, [facility] Procedure Social History Tobacco Use Types Packs/Day Years [...] on filedocumented in this encounter Care Teams Economics Analyst Relationship Specialty Start Date End Date Karina Nichols CNP PCP - General Family Medicine 07/28/14 08/08/22 Shaikh Thompson MD [address] [place] [id number] PCP - General Primary Care 08/09/22 documented as of this encounter
--- OUTSIDE RECORDS SUMMARY | 2024-11-01 20:12 | XMS_ITS | Encounter Summary ---
Author Organization [facility] Address [address] [place] [address] Care Team Providers Care Manager Equity Name Role Phone Shaikh SHARMIN Thompson Primary Care Provider [phone] Source Comments In the event this information is protected by the Federal Confidentiality of Alcohol and Drug AbusePatient Records regulations: The Federal rules restrict any use of the information to criminally investigate or prosecute any alcohol or drug abuse patient.[facility] Encounter Details Date Type Department Care Team (Late st Contact Info) Description 10/26/2022 Patient Msg Kidney Medicine [address] [address] [place] [id number] [place] [address] [address] [place] [address] Your question Social History Tobacco Use Types Packs/Day Years Used Date Smoking Tobacco: Former Cigarettes Q uit: 08/18/2017 Smokeless Tobacco: Never Alcohol Use Standard Drinks/Week Comments Not Currently 0 (1 standard drink = 0.6 oz pur e alcohol) Area Deprivation Index Answer Date Rajseh rded National Score (1-100), lower number is lower ri sk 59 08/09/2022 State Score (1-10), lower number is lower risk 4 08/09/2022 Data from: https://www.neighborhoodatlas.[facility]/. Last address used for calculation [address] [...] filedocumented in this encounter Care Teams Manager Equity Relationship Specialty Start Date End Date Shaikh Thompson MD [address] [place] [address] PCP - General Primary Care 08/09/22 documented as of this encounter
--- OUTSIDE RECORDS SUMMARY | 2024-11-01 20:12 | XMS_ITS | Clinical Summary ---
Author Organization [facility] Healthcare Address [address] [place] [address] Care Team Providers Care Personnel Arbitrator Name Role Phone Mikhail Dutta MD Primary Care Provider [phone] Sadaf Hill FINANCIAL MANAGEMENT CONSULTANT Unavailable [phone] Allergies Active Allergy Reactions Criticality Noted Date Comments Codeine Swelling,Unknown 09/06/2014 Medications aspirin 81 MG EC tablet Take 81 mg by mouth Daily Active metoprolol succinate XL (Toprol-XL) 50 MG 24 hr tablet Take 50 mg by mouth Daily Active albuterol (2.5 MG/3ML) 0.083% nebulizer solutionIndication s:Chronic obstructive pulmonary disease, unspecified COPD type (HCC) Take 3 mL by nebulization every 4 (four) hours if needed for wheezing or shortness of breath 75 mL 1 05/13/19 24 Active atorvastatin (Lipitor) 40 MG tabletIndications: Hyperlipidemia, unspecified hyperlipidemia type Take 1 tablet (40 mg) by mouth at bedtime 90 tablet 1 06/10/19 24 Active tiZANidine (Zanaflex) 4 MG tabletIndications: Acute right-sided low back pain without sciatica TAKE 1 TABLET (4 MG) BY MOUTH EVERY 8 HOURS IF NEEDED FOR MUSCLE SPASMS 90 tablet 1 07/09/19 24 Active CVS D3 25 MCG (1000 UT) capsule Take 25 mcg by mouth Daily 07/23/19 24 Active gabapentin (Neurontin) 300 MG capsuleIndications :Acute right-sided low back pain without sciatica Take 1 capsule (300 mg) by mouth Daily 90 capsule 08/12/19 24 Active lisinopril 10 MG tabletIndications: Primary hypertension Take 1 tablet (10 mg) by mouth in the morning. 90 tablet 1 08/12/19 Active albuterol HFA 90 mcg/act inhalerIndications :Chronic obstructive pulmonary disease, unspecified COPD type (HCC) Inhale 2 puffs every 4 (four) hours if needed for wheezing or shortness of breath 8 g 1 09/10/19 Active Active Problems Problem Noted Date Diagnosed Date COPD with exacerbation 07/30/2023 Assessment & Plan (08/12/2023 6:58 PM EDT): She was seen previously in office for COPD exacerbation, was prescribed oral prednisone. However she ended up needing to go to ED for it. She is doing well now. She has finished her oral prednisone. Has 2 days of oral doxycycline that was prescribed by ED. CXR did not show evidence of PNA. She still feels a little tight on auscultation. I recommended that she uses her rescue inhaler or neb TID or QID until she has fully recovered. Assessment & Plan (07/30/2023 2:45 PM EDT): Severe COPD/obstructive lung disease (2021) Follows Dr Condon - former smoker, not on maintenance inhalers, could not tolerate Spiriva. Has not followed up with Pulm since then. Presenting today with COPD exacerbation - will call in oral prednisone, azithromycin. Asked patient to use albuterol as needed. If no improvement, worsening symptoms, will need to go to ED. Nldo, acquired (nasolacrimal duct obstruction), left 06/04/2023 Dacryocystitis of left lacrimal sac 05/17/2023 Dry eyes 05/17/2023 Blepharitis of upper and lower eyelids of both e yes 05/17/2023 Renal cyst, left 05/14/2023 Assessment & Plan (05/23/2023 3:49 PM EDT): New finding on CT abd that was performed in ED. 2.4 cm complex left renal cyst. This was not visible on CT in 2022. US kidney showed complex cysts versus hypoechoic mass within superior pole of left kidney. Will refer to Urology. Assessment & Plan (05/14/2023 9:18 AM EDT): New finding on CT abd that was performed in ED. 2.4 cm complex left renal cyst. This was not visible on CT in 2022. Will order an US of left kidney. Urinary incontinence in female 05/13/2023 Chronic right-sided low back pain without sciati ca 05/13/2023 Assessment & Plan (08/12/2023 7:03 PM EDT): Ongoing right sided back pain. CT scan showed advanced degenerative disc disease L3-S1, foraminal stenosis at L5-S1 She missed her PT appointment because of COPD exacerbation. Her pain is reasonably controlled on gabapentin, uses it once daily. Assessment & Plan (07/30/2023 2:46 PM EDT): Ongoing right sided back pain. CT scan showed advanced degenerative disc disease L3-S1, foraminal stenosis at L5-S1 Pain is better with PT. C/w PT, conservative measures. Assessment & Plan (06/17/2023 6:54 PM EDT): Patient was seen previously for Right sided back pain, now ongoing for 6 weeks now, persistent, worse with sitting down. She reports she could not think straight if she used gabapentin in the morning. CT scan indicates advanced degenerative disc disease L3-S1, foraminal stenosis at L5-S1 Her pain is better today but she reports intermittently worsening pain and it is affecting her ability to work. Given her CT scan finding, longstanding hx of low back pain, persistent pain - will order an MRI of lumbar spine. Patient could not get PT because her insurance was not accepted by the PT provider. Will write her a new order so that she can take the order to wherever her insurance is accepted. Assessment & Plan (05/14/2023 9:17 AM EDT): Right sided back pain, started about 3 weeks ago, persistent, worse with sitting down. CT scan indicates advanced degenerative disc disease L3-S1, foraminal stenosis at L5-S1 Will start patient on Gabapentin along with tizanidine. Ordered PT eval and rx. And referred to pain. Patient currently has no neurological signs and symptoms but given the findings on CT scan, she will likely need an MRI if conservative measures failed. Tobacco dependency 02/19/2023 Assessment & Plan (02/19/2023 1:57 PM EST): Patient counseled on smoking/tobacco cessation. Patient educated on harmful effects of smoking cigarettes/tobacco including increased risk of cardiovascular diseases, chronic lung disease and multiple cancers. Patient was educated and informed of different behavioral and therapeutic interventions that can help with smoking/tobacco use. Patient's questions/concerns were addressed and answered related to therapeutic options. Patient was offered help and encouraged to reach out to provider if/when they are ready to quit. A total of over 3 minutes and up to 10 minutes were spent on Smoking/Tobacco use counseling. Started on Nicotine patches/lozenges. Chronic obstructive pulmonary disease 02/19/2023 Assessment & Plan (07/30/2023 2:18 PM EDT): Doing well. Symptoms controlled with albuterol nebs. Assessment & Plan (05/14/2023 9:14 AM EDT): Doing well. Symptoms controlled with albuterol nebs. Will discuss maintenance inhalers next appointment Assessment & Plan (02/19/2023 1:56 PM EST): PFTs 05/10 Severe COPD. Patient recent hospital admission for COPD exacerbation and Pneumonia. She was discharged on home O2. Doing well today. On RA. Minimal/no wheezing on exam. Comfortable. Patient has follow up appointment with Dr Condon. Stage 3a chronic kidney disease 02/19/2023 Assessment & Plan (05/14/2023 9:15 AM EDT): CKD 3, renal function stable. Monitor. Assessment & Plan (02/19/2023 1:57 PM EST): Due to HTN. Follows Nephrology. On ACEi - lisinopril Hyperlipidemia 02/19/2023 Primary hypertension 02/19/2023 Assessment & Plan (08/12/2023 6:59 PM EDT): Well controlled. On Lisinopril 10 mg, Toprol 50 mg. Doing well. C/w same. Assessment & Plan (05/14/2023 9:14 AM EDT): Well controlled. Her lisinopril was decreased to 10 mg last appt. Her Toprol was decreased to 50 mg by cardiology. Too tightly controlled but denies orthostatic symptoms. Monitor for now. Assessment & Plan (02/19/2023 1:57 PM EST): Too tightly controlled. Denies orthostasis. Tolerating Anti hypertensive w/o adverse effects. Denies lightheadedness, dizziness, syncope, presyncope. Patient encouraged to continue with home BP monitoring and call office if he experiences orthostatic symptoms or persistently elevated BP. Patient asked to decrease her Lisinopril to 10 mg if BP is persistently less than 100/60. Follow up in 2 months. H/O: CVA (cerebrovascular accident) 02/19/2023 Hospital discharge follow-up 02/19/2023 Assessment & Plan (02/19/2023 1:59 PM EST): [place] [facility] [place], COPD Exacerbation, resp failure with hypoxia and NSTEMI (T2 demand ischemia) She is currently on RA, denies SOB, chest pain. She will finish her steroids tomorrow. Patient has follow up appt with Cardiology and Pulm this month. Reviewed medications changes, hospital records. Doing well overall. Atrophy of kidney 10/09/2022 Hypertension, renal disease 10/09/2022 Gastroesophageal reflux disease without esophagi tis 06/12/2022 Tobacco abuse 09/07/2014 Encounters Date Type Department Care Team Description 08/13/2024 Clinisync Result Encounter [facility] External Department Unsolicited Provider, Generic External Data from Last 3 Months Immunizations Immunization Administration Dates Next Due PPD Test 06/22/2022 Family History Medical History Relation Name Comments Hypertension Brother No Known Problems Father No Known Problems Mother Hypertension Sister Relation Name Status Comments Brother Father Mother Sister Son 1 Alive Son 2 Alive Social History Tobacco Use Types Packs/Day Years Used Date Smoking Tobacco: Every Day Cigarettes Last attempted to quit: 07/19/2021 Passive Smoke Exposure: Current Smokeless Tobacco: Never Tobacco Cessation:Ready to Q uit: No; Counseling Given: Yes Alcohol Use Standard Drinks/Week Comments Never 0 (1 standard drink = 0.6 oz pur e alcohol) B1300 Health Literacy Answer Date Recor ded How often do you need to hav e someone help you when you read instructions, pamphlets, or other written material from your doctor or pharmacy? Patient declines to respond 11/13/2023 Social Connection and Isolation Panel [NHANES] A nswer Date Recorded Frequency of Communication with Friends and Fami ly Not on file 11/13/2023 Frequency of Social Gatherings with Friends and Family Not on file 11/13/2023 Attends Hinduism Services Not on file 11/12 Do you belong to any clubs o r organizations such as adventism groups, unions, fraternal or athletic groups, or school groups? Patient declined 11/13/2023 Attends Club or Organization Meetings Not on kang e 11/13/2023 Are you , , di vorced, , never , or living with a partner? Patient declined 11/13/2023 AUDIT-C Answer Date Recorded Frequency of Alcohol Consumption Not on file 11/13/2023 Q2: How many drinks containi ng alcohol do you have on a typical day when you are drinking? Patient declined 11/13/2023 Frequency of Binge Drinking Not on file 10/20 PHQ-2 Answer Date Recorded Patient Health Questionnaire-2 Score 0 08/12/2023 Exercise Vital Sign Answer Date Recorde d On average, how many days pe r week do you engage in moderate to strenuous exercise (like a brisk walk)? Patient declined On average, how many minutes do you engage in exercise at this level? Patient declined 11/13/2023 PRAPARE - Transportation Answer Date Re corded In the past 12 months, has l ack of transportation kept you from medical appointments or from getting medications? Patient declined 11/13/2023 In the past 12 months, has l ack of transportation kept you from meetings, work, or from getting things needed for daily living? Patient declined 11/13/2023 Housing Stability Vital Sign Answer Karri e Recorded In the last 12 months, was t here a time when you were not able to pay the mortgage or rent on time? Patient declined 11/13/19 Number of Times Moved in the Last Year Not on fi le 11/13/2023 Homeless in the Last Year Not on file 2023 Comments Unknown Sex and Gender Information Value Date Recorded Sex Assigned at Not on file Legal Sex Female 7:17 PM EDT Gender Identity Not on file Sexual Orientation Not on file Last Filed Vital Signs Vital Sign Reading Time Taken Comments Blood Pressure 120/80 08/12/2023 6:46 PM EDT Pulse 79 08/12/2023 6:46 PM EDT 93% O 2 Temperature 36.9 C (98.5 F) 08/12/2023 6:46 PM EDT Respiratory Rate - - Oxygen Saturation 90% 02/19/2023 1:54 PM EST Inhaled Oxygen Concentration - - Weight 69.4 kg (153 lb) 08/12/2023 6:46 PM EDT Height 162.6 cm (5' 4 ) 08/12/2023 6:46 PM EDT Body Mass Index 26.26 08/12/2023 6:46 PM EDT Plan of Treatment Health Maintenance Due Date Last Done Comments CT Colonography 1962 FIT-DNA 1962 FIT 1962 FOBT 1962 Sigmoidoscopy 1962 HPV/Cotest 1992 Mammogram 02/21/2024 02/20/2023, 03/2023, 02/18/2023, Additional history exists Influenza Vaccine (#1) 2024 Cervical Cancer Screening 11/20/2024 Pap Smear 11/20/2024 11/20/2021 Colonoscopy 02/19/2032 02/18/2022 Colorectal Cancer Screening 02/19/2032 Procedures Procedure Name Priority Date/Time Associated Diagnosis Comments VASC LAB PVR W/O EXERCISE 08/13/2024 10:50 AM EDT MM TOMOSYNTHESIS SCREENING BI 02/20/2023 9:38 AM EST from Last 3 Months or Most Recently Relevant to Health Maintenance Results * VASC LAB PVR W/O EXERCISE (08/13/2024 10:50 AM EDT) Anatomical Region Laterality Modality Other 08/13/2024 10:5 0 AM EDT Narrative 08/13/2024 10:54 AM EDT Preliminary Cardiology Report [address], [place] [id number] Preliminary Vascular Lab Report VASC US PVR WITHOUT EXERCISE Patient Name: DEYSI Payne Physician: [id number] Newman MD [facility] Study Date: 08/13/2024 Ordering Provider: [id number] HOMERO NEWMAN MRN/PID: [id number] Fellow: Technologist: Juhi Stoddard RDCS, T Date of : 1960 Technologist 2: Gender: F Admission Status: Outpatient Location [facility] Performed: Diagnosis/ICD: Other specified symptoms and signs involving the circulatory and respiratory systems-R09.89; Peripheral vascular disease, unspecified-I73.9 Indication: HTN, Hyperlipidemia, History of Ischemic CVA, Angina, COPD, CKD-Stage IIIb, Tobacco Abuse CPT Codes: 47055 Peripheral artery PVR (multi segmental pressure PRELIMINARY CONCLUSIONS: Imaging & Doppler Findings: RIGHT Lower PVR [...] Left Brachial Pressure 117 mmHg 113 mmHg VASCULAR PRELIMINARY REPORT completed by Juhi Stoddard RDCS, T on 08/13/2024 at 10:54:51 AM Final Procedure Note Radiology, Radiologist, MD - 08/13/2024 Preliminary Cardiology Report [address], [address] [address] Preliminary Vascular Lab Report VASC US PVR WITHOUT EXERCISE Patient Name: DEYSI Payne Physician: [id number] Bell [facility] Study Date: 08/13/2024 Ordering Provider: [id number] HOMERO LEARY MRN/PID: [id number] Fellow: Technologist: Juhi Stoddard RDCS, RVT Date of : 1960 Technologist 2: Gender: F Admission Status: Outpatient Location [facility] Performed: Diagnosis/ICD: Other specified symptoms and signs involving thecirculatory and respiratory systems-R09.89; Peripheral vascular disease, unspecified-I73.9 Indication: HTN, Hyperlipidemia, History of Ischemic CVA, Angina,COPD, CKD-Stage IIIb, Tobacco Abuse CPT Codes: 82556 Peripheral artery PVR (multi segmental pressure PRELIMINARY CONCLUSIONS: Imaging & Doppler Findings: RIGHT Lower PVR [...] Left Brachial Pressure 117 mmHg 113 mmHg VASCULAR PRELIMINARY REPORT completed by Juhi Stoddard RDCS, RVT on 08/13/2024 at 10:54:51 AM Final Generic External Data Provider [facility] Final Result * MM TOMOSYNTHESIS SCREENING BI (02/20/2023 9:38 AM EST) Anatomical Region Laterality Modality Other 02/20/2023 9:38 AM EST Narrative 02/20/2023 9:39 [place] [address] Mammography Report Signed Patient: DEYSI HERNANDEZ MR#: [id number] : 1960 Acct:[id number] Age/Sex: 62 / F ADM Date: 02/19/23 Loc: MAMMO Attending Dr: Shaikh Donna Robles Ordering Physician: Shaikh Travis Thompson Results: Date of Service: 02/19/23 Follow Up: Procedure(s): MM tomosynthesis screening BI Accession Number(s): [id number] cc: Shaikh Travis Thompson Patient Name: DEYSI HERNANDEZ MR#: [id number] : 1960 Exam Date: 02/19/2023 Ordering Doctor: Shaikh Ford Baez RADIOLOGY REPORT PROCEDURE: MM TOMOSYNTHESIS SCREENING BI COMPARISON: MG MAMM NIRMALA SCRN W CAD DIG, 12/05/2012. MG MAMM SCREEN 3D NIRMALA CAD, 10/30/2021. INDICATIONS: Screening Calculator Name NCI Breast Cancer Risk Assessment Tool 5 Year Breast Cancer Risk 1.00% Lifetime Breast Cancer Risk 5.30% Personal Breast Cancer No Personal Ovarian Cancer No Treatments None Family Cancers None LOCATION: [facility] BREAST COMPOSITION: Scattered areas fibroglandular density. FINDINGS: DIAGNOSTIC CATEGORY 2--BENIGN FINDING. NO CHANGE FROM COMPARISON. Scattered benign-appearing nodules are present. Scattered benign-appearing lymph nodes are present. RIGHT BREAST: No significant suspicious finding. LEFT BREAST: No significant suspicious finding. RECOMMENDATIONS: ROUTINE MAMMOGRAM AND CLINICAL EVALUATION IN 12 MONTHS. PLEASE NOTE: A NORMAL MAMMOGRAM DOES NOT EXCLUDE THE POSSIBILITY OF BREAST CANCER. A CLINICALLY SUSPICIOUS PALPABLE LUMP SHOULD BE BIOPSIED. Dictated by: Damian Martinez MD on 02/20/2023 at 09:27 Approved by: Damian Martinez MD on 02/20/2023 at 09:37 Dictated By: Damian Martinez M.D. Signed By: 02/20/23 0939 DD/ 0938 TD/TT: Apprentice Jockey: Procedure Note Radiology, Radiologist, MD - 02/20/2023 [place] [address] Mammography Report Signed Patient: DEYSI HERNANDEZ FMR#: [id number] : 1960Acct:[id number] Age/Sex: 62 / FADM Date: 02/19/23 Loc: MAMMO Attending Dr: Shaikh Donna Robles Ordering Physician: Shaikh Travis ThompsonResults: Date of Service: 02/19/23Follow Up: Procedure(s): MM tomosynthesis screening BI Accession Number(s): [id number] cc: Shaikh Travis Thompson Patient Name: DEYSI HERNANDEZ MR#: [id number] : 1960 Exam Date: 02/19/2023 Ordering Doctor: Shaikh Ford Thompson . RADIOLOGY REPORT PROCEDURE: MM TOMOSYNTHESIS SCREENING BI COMPARISON: MG MAMM NIRMALA SCRN W CAD DIG, 12/05/2012. MG MAMM SCREEN 3DBIL CAD, 10/30/2021. INDICATIONS: Screening Calculator Name NCI Breast Cancer Risk Assessment Tool 5 Year Breast Cancer Risk 1.00% Lifetime Breast Cancer Risk 5.30% Personal Breast Cancer No Personal Ovarian Cancer No Treatments None Family Cancers None LOCATION: [facility] BREAST COMPOSITION: Scattered areas fibroglandular density. FINDINGS: DIAGNOSTIC CATEGORY 2--BENIGN FINDING. NO CHANGE FROM COMPARISON.Scattered benign-appearing nodules are present. Scattered benign-appearing lymphnodes are present. RIGHT BREAST: No significant suspicious finding. LEFT BREAST: No significant suspicious finding. RECOMMENDATIONS: ROUTINE MAMMOGRAM AND CLINICAL EVALUATION IN 12 MONTHS. PLEASE NOTE: A NORMAL MAMMOGRAM DOES NOT EXCLUDE THE POSSIBILITY OFBREAST CANCER. A CLINICALLY SUSPICIOUS PALPABLE LUMP SHOULD BE BIOPSIED. Dictated by: Damian Martinez MD on 02/20/2023 at 09:27 Approved by: Damian Martinez MD on 02/20/2023 at 09:37 Dictated By: Damian Martinez M.D. Signed By:02/20/2339 DD/ TD/TT: Apprentice Jockey: Shaikh Donna [facility] Final Result from Last 3 Months or Most Recently Relevant to Health Maintenance Insurance [facility] Care Teams Personnel Arbitrator Relationship Specialty Start Date End Date Mikhail Dutta MD PCP - General Family Medicine 09/30/23 Sadaf Hill NP Nurse Practitioner Family Medicine 09/30/23
--- OUTSIDE RECORDS SUMMARY | 2024-11-01 20:12 | XMS_ITS | Encounter Summary ---
Author Organization [facility] Address [address] [place] [address] Care Team Providers Care Bee Rancher Name Role Phone Shaikh SHARMIN Thompson Primary Care Provider [phone] Shaikh SHARMIN Thompson Primary Care Provider [phone] Mikhail Dutta MD Primary Care Provider [phone] Sadaf Hill NP Unavailable [phone] Encounter Details Date Type Department Care Team (Late st Contact Info) Description 02/20/2023 Clinisync Result Encounter [facility] External Department Unsolicited Shaikh Thompson MD [address] [place] [id number] Social History Tobacco Use Types Packs/Day Years [...] Procedure Name Priority Date/Time Associated Diagnosis Comments MM TOMOSYNTHESIS SCREENING BI 02/20/2023 9:38 AM EST documented in this encounter Results * MM TOMOSYNTHESIS SCREENING BI (02/20/2023 9:38 AM EST) Anatomical Region Laterality Modality Other 02/20/2023 9:38 AM EST Narrative 02/20/2023 9:39 AM EST [address] [address] Mammography Report Signed Patient: DEYSI HERNANDEZ MR#: [id number] : 1960 Acct:[id number] Age/Sex: 62 / F ADM Date: 02/19/23 Loc: MAMMO Attending Dr: Shaikh Donna Robles Ordering Physician: Shaikh Travis Thompson Results: Date of Service: 02/19/23 Follow Up: Procedure(s): MM tomosynthesis screening BI Accession Number(s): [id number] cc: Shaikh Travis Thompson Patient Name: DEYSI HERNANDEZ MR#: [id number] : 1960 Exam Date: 02/19/2023 Ordering Doctor: [...] Family Cancers None LOCATION: [facility] BREAST COMPOSITION: Scattered areas fibroglandular density. [...] Dictated By: Damian Martinez M.D. Signed By: 02/20/2339 DD/ 7 TD/TT: Orthotics Prosthetics Technician: Procedure Note Radiology, Radiologist, MD - 02/20/[address] [address] Mammography Report Signed Patient: DEYSI HERNANDEZ FMR#: [id number] : 1960Acct:[id number] Age/Sex: 62 / FADM Date: 02/19/23 Loc: MAMMO Attending Dr: Shaikh Donna Robles Ordering Physician: Shaikh Travis ThompsonResults: Date of Service: 02/19/23Follow Up: Procedure(s): MM tomosynthesis screening BI Accession Number(s): [id number] cc: Shaikh Travis Thompson Patient Name: DEYSI HERNANDEZ MR#: [id number] : 1960 Exam Date: 02/19/2023 Ordering Doctor: [...] Family Cancers None LOCATION: [facility] BREAST COMPOSITION: Scattered areas fibroglandular density. [...] By: Damian Martinez M.D. Signed By:02/20/2339 DD/ 7 TD/TT: Orthotics Prosthetics Technician: us Shaikh Donna [facility] Final Result documented in this encounter Visit Diagnoses Not on filedocumented in this encounter Care Teams Bee Rancher Relationship Specialty Start Date End Date Shaikh Thompson MD PCP - General Internal Medicine 09/24/22 05/07/23 Shaikh Thompson MD [address] [place] [phone] PCP - General Internal Medicine 05/08/23 09/29/23 Mikhail Dutta MD [address] [place] [address] PCP - General Family Medicine 09/30/23 Sadaf Hill NP [address] [place] [phone] Nurse Practitioner Family Medicine 09/30/23 documented as of this encounter
--- OUTSIDE RECORDS SUMMARY | 2024-11-01 20:12 | XMS_ITS | Encounter Summary ---
Author Organization [facility] Address [address] [place] [address] Care Team Providers Care Motor Vehicle Assembler Name Role Phone Shaikh SHARMIN Thompson Primary Care Provider [phone] Mikhail Dutta MD Primary Care Provider [phone] Sadaf Hill NP Unavailable [phone] Encounter Details Date Type Department Care Team (Late st Contact Info) Description 08/05/2023 Orders Only [facility] [address] [place] [address] Shaikh Thompson MD [address] [place] [phone] Social History Tobacco Use Types Packs/Day Years Used Date Smoking Tobacco: Every Day Cigarettes Last attempted to quit: 07/19/2021 Passive Smoke Exposure: Current Smokeless Tobacco: Never Alcohol Use Standard Drinks/Week Comments Never 0 (1 standard drink = 0.6 oz pur e alcohol) PHQ-2 Answer Date Recorded Patient Health Questionnaire-2 Score 0 07/30/2023 Comments Unknown Sex and Gender Information Value Date Recorded Sex Assigned at Not on file Legal Sex Female 7:17 PM EDT Gender Identity Not on file Sexual Orientation Not on file documented as of this encounter Plan of Treatment Not on file documented as of this encounter Procedures Procedure Name Priority Date/Time Associated Diagnosis Comments XR CHEST 1 VIEW Routine 08/04/2023 9:15 AM EDT documented in this encounter Results * XR chest 1 view (08/04/2023 9:15 AM EDT) Anatomical Region Laterality Modality Chest Radiographic Janessa ging Shaikh Donna [facility] XR PROCEDURES Final Result documented in this encounter Visit Diagnoses Not on filedocumented in this encounter Care Teams Motor Vehicle Assembler Relationship Specialty Start Date End Date Shaikh Thompson MD [address] [place] [phone] PCP - General Internal Medicine 05/08/23 09/29/23 Mikhail Dutta MD [address] [place] [phone] PCP - General Family Medicine 09/30/23 Sadaf Hill NP [address] [place] [phone] Nurse Practitioner Family Medicine 09/30/23 documented as of this encounter
--- OUTSIDE RECORDS SUMMARY | 2024-11-01 20:12 | XMS_ITS | Clinical Summary ---
Author Organization [facility] Address [address] [place], [place] [id number] Care Team Providers Care Seed Cleaner Name Role Phone Shaikh SHARMIN Thompson Primary Care Provider [phone] Allergies Active Allergy Reactions Criticality Noted Date Comments Codeine Swelling 09/07/2014 Medications aspirin, enteric coated (ASPIRIN, ENTERIC COATED) 81 mg EC tablet 81 mg. 04/05/2022 Act jessica metoprolol succinate ER (TOPROL XL) 100 mg Take 100 mg by mouth. 08/17/2021 Active atorvastatin (LIPITOR) 40 mg tablet 05/28/2022 Active VENTOLIN HFA 90 mcg/actuation inhaler 06/18/2022 Active lisinopril (ZESTRIL) 10 mg tabletIndication s:Stage 3 chronic kidney disease, unspecified whether stage 3a or 3b CKD (HCC) Take 1 tablet by mouth once daily. 90 tablet 3 10/29/2022 Active Active Problems Problem Noted Date Diagnosed Date Stage 3 chronic kidney disease 10/09/2022 Hypertension, renal disease 10/09/2022 Mixed hyperlipidemia 10/09/2022 Erythrocytosis 03/14/2016 History of endometrial ablation 02/08/2016 Overview (02/08/2016): 2010 Hypercholesteremia 09/07/2014 Tobacco abuse 09/07/2014 Resolved Problems Problem Noted Date Diagnosed Date Resolved Date Encounter for screening for malignant neoplasm of colon 03/27/2016 10/09/2022 Family History Medical History Relation Comments Heart Father Thyroid Sister 2 Hypertension Sister 3 Relation Status Comments Brother Alive Father Maternal Grandfather Maternal Grandmother Mother Alive Paternal Grandfather Paternal Grandmother Sister 1 Alive Sister 2 Sister 3 Son 1 Alive Son 2 Social History Tobacco Use Types Packs/Day Years Used Date Smoking Tobacco: Former Cigarettes Q uit: 08/18/2017 Smokeless Tobacco: Never Tobacco Cessation:Counseling Given: Not Answered Alcohol Use Standard Drinks/Week Comments Not Currently 0 (1 standard drink = 0.6 oz pur e alcohol) Area Deprivation Index Answer Date Rajesh rded National Score (1-100), lower number is lower ri sk 59 08/09/2022 State Score (1-10), lower number is lower risk 4 08/09/2022 Data from: https://www.neighborhoodatlas.[facility].edu/. Last address used for calculation [address] 08/09/2022 Comments No Sex and Gender Information Value Date Recorded Sex Assigned at Not on file Legal Sex Female 9:24 AM EDT Gender Identity Not on file Sexual Orientation Not on file Last Filed Vital Signs Vital Sign Reading Time Taken Comments Blood Pressure 91/60 10/09/2022 2:24 PM EDT Pulse 60 10/09/2022 2:24 PM EDT Temperature 36.4 C (97.5 F) 10/09/2022 2:24 PM EDT Respiratory Rate 16 03/27/2016 12:58 PM EST Oxygen Saturation 96% 03/27/2016 12:58 PM EST Inhaled Oxygen Concentration - - Weight 71.3 kg (157 lb 1.6 oz) 10/09/2022 2:24 P M EDT Height 157.5 cm (5' 2 ) 10/09/2022 2:24 PM EDT Body Mass Index 28.73 10/09/2022 2:24 PM EDT Plan of Treatment Health Maintenance Due Date Last Done Comments Annual PCP Team Chronic Disease Visit 1980 Anxiety Screening 1980 Depression Screening 1980 HIV Screening 1980 Hepatitis C Screening 1980 DTaP,Tdap,Td Vaccine (1 - Tdap) 1981 CT Colonography 05/12/2007 Cologuard (FIT-DNA) 05/12/2007 Diabetes Screening 05/12/2007 Fecal Occult Blood 05/12/2007 Lipid Screening 05/12/2007 Sigmoidoscopy 05/12/2007 Pneumococcal Vaccine: 50+ (1 of 1 - PCV) 2012 Shingrix Vaccine (1 of 2) 2012 Hemoglobin/Hematocrit 03/14/2017 03/14/2016, 016 Cervical Cancer Screening 02/07/20212015, 02/08/2016, 07/22/2014 Colonoscopy 03/27/2021 03/27/2016, 03/27/2016 Colorectal Cancer Screening 03/27/2021 Mammogram Screening 12/08/2021 12/08/2020, 02/19/2018, 02/16/2016 Serum Creatinine 08/24/2023 08/23/2022 Influenza Vaccine (#1) 2024 RSV Vaccine (1 - 1-dose 75+ series) 2037 Procedures Procedure Name Priority Date/Time Associated Diagnosis Comments RENAL FUNC PANL Routine 08/23/2022 2:35 PM EDT Stage 3b chronic kidney disease (HCC) BERTA SCREENING W KYARA Routine 02/19/2018 3:14 PM EST COLONOSCOPY 03/27/2016 12:06 PM EST CBC + DIFF Routine 03/14/2016 2:48 PM EST Erythrocytosis PAP FLUID CERVICAL SCREENING Routine 02/08/2016 1:37 PM EST PMB (postmenopausal bleeding) Pap smear for cervical cancer screening Special screening examination for human papillomavirus (HPV) from Last 3 Months or Most Recently Relevant to Health Maintenance Results * (ABNORMAL) RENAL FUNCTION PANEL (08/23/2022 2:35 PM EDT) Albumin 4.3 3.9 - 4.9 g/dL 08/23/2022 4:39 PM EDT [facility] Calcium, Total 9.9 8.5 - 10.2 mg/dL 08/23/2022 4:39 PM EDT [facility] Phosphorus 2.5(L) 2.7 - 4.8 mg/dL 08/23/2022 4:39 PM EDT [facility] Glucose 70(L) 74 - 99 mg/dL 08/23/2022 4:39 PM [facility] Comment: The [place] Diabetes Association (ADA) provides guidance for cutoff [...] Standards of Medical Care in Diabetes 2016, [place] [employer]. Diabetes Care. 2016.39(Suppl 1). BUN 18 7 - 21 mg/dL 08/23/2022 4:39 PM [facility] Creatinine 1.42(H) 0.58 - 0.96 mg/dL 08/23/2022 4:39 PM [facility] Sodium 139 136 - 144 mmol/L 08/23/2022 4:39 PM [facility] Potassium 4.8 3.7 - 5.1 mmol/L 08/23/2022 4:39 PM [facility] Chloride 105 97 - 105 mmol/L 08/23/2022 4:39 PM [facility] CO2 25 22 - 30 mmol/L 08/23/2022 4:39 PM [facility] Anion Gap 9 9 - 18 mmol/L 08/23/2022 4:39 PM [facility] Estimated Glomerular Filtration Rate 42(L) >=60 mL/min/1. 73m 08/23/2022 4:39 PM [facility] Comment:Estimated Glomerular Filtration Rate (eGFR) is calculated using the 2020 CKD-EPI creatinine equation. This equation utilizes serum creatinine, sex, and age as parameters. The creatinine assay has traceable calibration to isotope dilution- mass spectrometry. Refer to KDIGO guidelines for clinical interpretation. In patients with unstable renal function, e.g. those with acute kidney injury, the eGFR may not accurately reflect actual GFR. Blood BLOOD SPECIMEN / Unknown Venipuncture / Unknown 08/23/2022 2:35 PM EDT 08/23/2022 2:35 PM EDT Debra Ann MD LABORATORY Final Result [facility] [address] [place] [address], [place] * BERTA SCREENING W KYARA (02/19/2018 3:14 PM EST) Anatomical Region Laterality Modality Other 02/19/2018 3:14 PM EST Impressions 02/19/2018 4:01 PM EST IMPRESSION: There is no abnormality seen in the left breast to correspond with the tenderness at 6 o'clock which is consistent with normal fibroglandular tissue. There is no mammographic evidence of malignancy. A 1 year screening mammogram is recommended. Phylicia Horne M.D., mc/claire:02/19/2018 16:00:45 Loan Supervisor(s): RT Jeremi(R)(M), [facility] letter sent: Normal over 40 Mammogram BI-RADS: 1 Negative Multiple national specialty organizations have released breast cancer screening guidelines for women at average risk for developing breast cancer - guidelines that are based on both evidence and opinion, yet differ on when to start and how often to screen for breast cancer. With representation from Breast Imaging, Internal Medicine, Women's Health, Family Medicine, and Medical/Surgical Oncology, the [facility] has carefully reviewed the data and reached the following consensus: 1) All women should engage in shared decision-making with their providers to decide when to start and how often to screen; 2) All women should have the opportunity to start screening mammography at age 40; 3) For women ages 45-55, we recommend annual screening mammograms; 4) For women ages 55 and over, we support both the transition from an annual to a biennial interval if this aligns more with patient's values and preferences, or continuation with annual screening; 5) All women should discuss with their providers when to stop screening mammograms. Assembler Dielectric Heater: Claire Transcribe Date/Time: Feb 19 2018 2:51P Dictated by : PHYLICIA FLOWERS MD This examination was interpreted and the report reviewed and electronically signed by: PHYLICIA FLOWERS MD on Feb 19 2018 4:00PM EST Narrative 02/19/2018 4:01 PM EST * * *Final Report* * * DATE OF EXAM: Feb 19 2018 3:14PM [facility] - [facility] SCREENING W KYARA / PROCEDURE REASON: Encounter for screening mammogram for malignant neoplasm of breast * * * * Physician Interpretation * * * * RESULT: #[id number] - [facility] SCREENING W KYARA BILATERAL DIGITAL SCREENING MAMMOGRAM WITH CAD: 02/19/2018 HISTORY: Encounter For Screening Mammogram For Malignant Neoplasm Of Breast /Screening Mammogram - patient reports the following symptoms: tender left breast , lump w/dimpling /SEE TECH NOTE. RESULT: TECHNIQUE: The study was acquired using full field digital technology and interpreted from soft copy. Current study was also evaluated with a Computer Aided Detection (CAD). Comparison is made to exam dated: 02/16/2016 [facility]. There are scattered fibroglandular elements in both breasts. Fatty tissue only is observed in the area indicated as tender. No significant masses, calcifications, or other findings are seen in either breast. Procedure Note Provider, [facility] - 02/19/2018 * * *Final Report* * * DATE OF EXAM: Feb 19 2018 3:14PM [facility] - [facility] SCREENING W KYARA / PROCEDURE REASON: Encounter for screening mammogram for malignant neoplasm of breast * * * * Physician Interpretation * * * * RESULT: #[id number] - [facility] SCREENING W KYARA BILATERAL DIGITAL SCREENING MAMMOGRAM WITH CAD: 02/19/2018 HISTORY: Encounter For Screening Mammogram For Malignant Neoplasm Of Breast /Screening Mammogram - patient reports the following symptoms: tender left breast , lump w/dimpling /SEE TECH NOTE. RESULT: TECHNIQUE: The study was acquired using full field digital technology and interpreted from soft copy. Current study was also evaluated with a Computer Aided Detection (CAD). Comparison is made to exam dated: 02/16/2016 mammogram [facility] [place]. There are scattered fibroglandular elements in both breasts. Fatty tissue only is observed in the area indicated as tender. No significant masses, calcifications, or other findings are seen in either breast. IMPRESSION IMPRESSION: There is no abnormality seen in the left breast to correspond with the tenderness at 6 o'clock which is consistent with normal fibroglandular tissue. There is no mammographic evidence of malignancy. A 1 year screening mammogram is recommended. Phylicia Horne M.D., mc/claire:02/19/2018 16:00:45 Loan Supervisor(s): Lila Webb RT(R)(M), [facility] letter sent: Normal over 40 Mammogram BI-RADS: 1 Negative Multiple national specialty organizations have released breast cancer screening guidelines for women at average risk for developing breast cancer - guidelines that are based on both evidence and opinion, yet differ on when to start and how often to screen for breast cancer. With representation from Breast Imaging, Internal Medicine, Women's Health, Family Medicine, and Medical/Surgical Oncology, the [facility] has carefully reviewed the data and reached the following consensus: 1) All women should engage in shared decision-making with their providers to decide when to start and how often to screen; 2) All women should have the opportunity to start screening mammography at age 40; 3) For women ages 45-55, we recommend annual screening mammograms; 4) For women ages 55 and over, we support both the transition from an annual to a biennial interval if this aligns more with patient's values and preferences, or continuation with annual screening; 5) All women should discuss with their providers when to stop screening mammograms. Assembler Dielectric Heater: Claire Transcribe Date/Time: Feb 19 2018 2:51P Dictated by : PHYLICIA FLOWERS MD This examination was interpreted and the report reviewed and electronically signed by: PHYLICIA FLOWERS MD on Feb 19 2018 4:00PM EST Edwar HAMPTON-PAMLuis Carlos Final Result * COLONOSCOPY (03/27/2016 12:06 PM EST) Payroll Accounting Clerk [facility] Gastrointestinal Endoscopy Patient Name: Deysi Hernandez Procedure Date: 03/27/2016 12:06 PM [id number] Date of : 1960 Admit Type: Outpatient Age: 55 Room: [facility] 1 Gender: Female Note Status: Finalized Attending MD: Sal Camarillo MD Sedation Initiated: 12.16 PM Procedure: Colonoscopy Indications: Screening for colorectal malignant neoplasm, Screening for malignant neoplasm in the colon Providers: Sal Camarillo MD Patient Profile: Refer to note in patient chart for documentation of history and physical. Last Colonoscopy: Referring Physician: Medicines: Midazolam 5 mg IV, Fentanyl 50 micrograms IV Complications: No immediate complications. Requesting Provider: Procedure: Pre-Anesthesia Assessment: - ASA Grade Assessment: II - A patient with mild systemic disease. After I obtained informed consent, the scope was passed under direct vision. Throughout the procedure, the patient's blood pressure, pulse, and oxygen saturations were monitored continuously. The Colonoscope was introduced through the anus and advanced to the terminal ileum. The colonoscopy was performed without difficulty. The patient tolerated the procedure well. The quality of the bowel preparation was adequate. The terminal ileum, ileocecal valve, appendiceal orifice, and rectum were photographed. Scope Withdrawal Time: 0 hours 6 minutes 8 seconds Total Procedure Duration: 0 hours 10 minutes 55 seconds Findings: A 3 mm polyp was found in the rectum. The polyp was sessile. The polyp was removed with a jumbo cold forceps. Resection and retrieval were complete. A few diverticula were found in the sigmoid colon. The exam was otherwise without abnormality. Impression: - One 3 mm polyp in the rectum. Resected and retrieved. - Diverticulosis in the sigmoid colon. - The examination was otherwise normal. Recommendation: - Await pathology results. - Repeat colonoscopy. - Patient has a contact number available for emergencies. The signs and symptoms of potential delayed complications were discussed with the patient. Return to normal activities tomorrow. Written discharge instructions were provided to the patient. - Continue present medications. - High fiber diet. Procedure Code(s): --- Professional --- 59201, Colonoscopy, flexible; with biopsy, single or multiple Diagnosis Code(s): --- Professional --- K62.1, Rectal polyp Z12.11, Encounter for screening for malignant neoplasm of colon K57.30, Diverticulosis of large intestine without perforation or abscess without bleeding CPT copyright 2015 [place] [employer]. All rights reserved. The codes documented in this report are preliminary and upon small kick press operator review may be revised to meet current compliance requirements. Attending Participation: I was present and participated during the entire procedure, including non-goldman portions, and during the administration and monitoring of Moderate Sedation. Scope In: 12:20:51 PM Scope Out: 12:31:46 PM Sal Camarillo MD 03/27/2016 12:34:55 PM This report has been signed electronically by Sal Camarillo MD Number of Addenda: 0 Note Initiated On: 03/27/2016 12:06 PM Estimated Blood Loss: Estimated blood loss: none. [facility] 03/27/2016 12:0 6 PM EST Sal Camarillo [facility] Final Result [facility] [address] [place] [address] [facility] [place] * (ABNORMAL) CBC + DIFF (03/14/2016 2:48 PM EST) WBC 8.21 3.70 - 11.00 k/uL 03/14/2016 2:[address] [facility] RBC 5.20 3.90 - 5.20 m/uL 03/14/2016 2:55 PM [facility] Hemoglobin 16.4(H) 11.5 - 15.5 g/dL 03/14/2016 2:55 PM [facility] Hematocrit 47.5(H) 36.0 - 46.0 % 03/14/2016 2:55 PM [facility] MCV 91.3 80.0 - 100.0 fL 03/14/2016 2:55 PM [facility] MCH 31.5 26.0 - 34.0 pG 03/14/2016 2:55 PM [facility] MCHC 34.5 30.5 - 36.0 g/dL 03/14/2016 2:55 PM [facility] RDW-CV 12.9 11.5 - 15.0 % 03/14/2016 2:55 PM [facility] Platelet Count 213 150 - 400 k/uL 03/14/2016 2:55 PM [facility] MPV 9.0 9.0 - 12.7 fL 03/14/2016 2:55 PM [facility] Neut% 52.6 % 03/14/2016 2:55 PM [facility] Abs Neut (ANC) 4.31 1.45 - 7.50 k/uL 03/14/2016 2:[address] [facility] Lymph% 37.0 % 03/14/2016 2:[address] [facility] Abs Lymph 3.04 1.00 - 4.00 k/uL 03/14/2016 2:[address] [facility] Weber% 8.5 % 03/14/2016 2:[address] [facility] Abs Weber 0.70 0.00 - 0.86 k/uL 03/14/2016 2:[address] [facility] Eosin% 1.2 % 03/14/2016 2:[address] [facility] Abs Eosin 0.10 0.00 - 0.45 k/uL 03/14/2016 2:[address] [facility] Baso% 0.7 % 03/14/2016 2:[address] [facility] Abs Baso 0.06 0.00 - 0.10 k/uL 03/14/2016 2:[address] [facility] Diff Type Auto Diff 03/14/2016 2:[address] [facility] Blood specimen (specimen) WHOLE BLOOD SPECIMEN / Unknown 03/14/2016 2:48 PM EST 03/14/2016 2:53 PM EST Jair Yang MD LABORATORY Final Result Performing Organization Address City/State/[facility] Co de Phone Number [facility] [address] [place] [address] * PAP FLUID CERVICAL SCREENING (02/08/2016 1:37 PM EST) Payroll Accounting Clerk ADDITIONAL PROCEDURES PRESENT Specimen originated from [facility] Specimen #: [id number] Submitting Physician: SHANNA LIU MD SPECIMEN SUBMITTED A: CERVICAL, SCREENING, FLUID FINAL DIAGNOSIS A. CERVICAL, SCREENING, FLUID Satisfactory for interpretation. Negative for intraepithelial lesion or malignancy. Atrophic specimen. This specimen has been analyzed by the ThinPrep Imaging System, an automated imaging and review system, which assists the laboratory in evaluating cells on ThinPrep Pap tests. Following automated imaging, selected moses from every slide are reviewed by a caddy master. Licha Pascal MD (Electronic Signature) ADDITIONAL PROCEDURE(S) HUMAN PAPILLOMA VIRUS Date Ordered: 02/09/2016 Date Reported: 02/10/2016 Procedure Results and Interpretation Negative for HPV DNA high risk type 16 by PCR. Negative for HPV DNA high risk type 18 by PCR. Negative for HPV DNA high risk types: 31,33,35,39,45,51, 52,56,58,59,66,68 by PCR. This test was developed and its performance characteristics determined by [facility] [place] ([facility]). It has not been cleared or approved by the FDA. [facility] is regulated under CLIA as qualified to perform high-complexity testing. This test is used for clinical purposes. It should not be regarded as investigational or for research. CLINICAL DATA ABNORMAL BLEEDING - DESCRIBE, HPV Testing: Yes, automatic HPV patients over 30 Date of Last Menstrual Period: Ablation Menstrual History: Post Menopausal Bleeding STAINS A: CERVICAL, SCREENING, FLUID THIN PREP PLASTIC PROCESS TECHNICIAN Date of Report: 02/16/2016 Date of Procedure: 02/08/2016 Date of Receipt: 02/09/2016 Submitted by: SHANNA LIU MD Location: A10 Diagnostic interpretation performed at [facility], [address] [facility] [address]. The Pap Smear is a screening test for cervical cancer. False negative results occur with all screening tests, emphasizing the need for rescreening at recommended intervals, and clinical correlation. [facility] Specimen from uterine cervix (specimen) CERVICAL / Unknown 02/08/2016 1:37 PM EST 02/09/2016 8:16 AM EST us Shanna Liu MD CYTOLOGY Edited Result - Final [facility] [address] [place] [address] from Last 3 Months or Most Recently Relevant to Health Maintenance Insurance [employer] Care Teams Seed Cleaner Relationship Specialty Start Date End Date Shaikh Thompson MD [address] [place] [address] PCP - General Primary Care 08/09/22
--- OUTSIDE RECORDS SUMMARY | 2024-11-01 20:12 | XMS_ITS | Encounter Summary ---
Author Organization [facility] Address [address] [place] [address] Phone Care Team Providers Care Desktop Publishing Operator Name Role Phone Shaikh SHARMIN Thompson Primary Care Provider [phone] Shaikh SHARMIN Thompson Primary Care Provider [phone] Encounter Details Date Type Department Care Team (Late st Contact Info) Description 02/12/2023 Scanned Document [facility] [address] [place] [id number] Scanning, Generic Provider Social History Tobacco Use Types Packs/Day Years Used Date Smoking Tobacco: Never Assessed Comments Unknown Sex and Gender Information Value Date Recorded Sex Assigned at Not on file Legal Sex Female 9:53 AM EST Gender Identity Not on file Sexual Orientation Not on file documented as of this encounter Plan of Treatment Upcoming Encounters Date Type Department Care Team (Late st Contact Info) Description 01/15/2025 10:00 AM EST Office Visit [place] [address] [place] [id number] Jaycob Newman MD [address] [place] [address] documented as of this encounter Procedures Procedure Name Priority Date/Time Associated Diagnosis Comments OUTSIDE IMAGING SCAN 02/12/2023 documented in this encounter Results * OUTSIDE IMAGING SCAN (02/12/2023) Anatomical Region Laterality Modality Other Narrative 02/12/2023 Ordered by an unspecified provider. us Generic Provider Scanning OUTSIDE SCAN Final Result documented in this encounter Visit Diagnoses Not on filedocumented in this encounter Care Teams Desktop Publishing Operator Relationship Specialty Start Date End Date Shaikh Thompson MD PCP - General 02/18/99 03/11/23 Shaikh Thompson MD [address] [place] [address] PCP - General Internal Medicine 03/12/23 documented as of this encounter
--- OUTSIDE RECORDS SUMMARY | 2024-11-01 20:12 | XMS_ITS | Encounter Summary ---
Author Organization [facility] Address [address] [place] [address] Phone Care Team Providers Care Fine Arts Instructor Name Role Phone Shaikh SHARMIN Thompson Primary Care Provider Encounter Details Date Type Department Care Team (Late st Contact Info) Description 06/13/2024 Scanned Document [facility] [address] [place] [address] Scanning, Generic Provider Social History [...] suspected to have Coronavirus/COVID-19? No / Unsure 06/02/2024 8:42 AM EDT documented as of this encounter Plan of Treatment Upcoming Encounters Date Type Department Care Team (Late st Contact Info) Description 01/15/2025 10:00 AM EST Office Visit [address] [place] [address] Jaycob Newman MD [address] [facility] [address] [place] [address] documented as of this encounter Procedures Procedure Name Priority Date/Time Associated Diagnosis Comments OUTSIDE LAB SCAN 06/13/2024 documented in this encounter Results * OUTSIDE LAB SCAN (06/13/2024) Narrative 06/13/2024 Ordered by an unspecified provider. us Generic Provider Scanning OUTSIDE SCAN Final Result documented in this encounter Visit Diagnoses Not on filedocumented in this encounter Additional Health Concerns Assessment Noted Time A fall risk assessment has been complete d for the patient 06/02/2024 8:50 AM EDT documented as of this encounter Care Teams Fine Arts Instructor Relationship Specialty Start Date End Date Shaikh Thompson MD [address] [place] [address] PCP - General Internal Medicine 03/12/23 documented as of this encounter
--- OUTSIDE RECORDS SUMMARY | 2024-11-01 20:12 | XMS_ITS | Encounter Summary ---
Author Organization [facility] Address [address] [place] [address] Phone Care Team Providers Care Senior Project Manager Name Role Phone Shaikh SHARMIN Thompson Primary Care Provider [phone] Encounter Details Date Type Department Care Team (Late st Contact Info) Description 07/10/2024 Scanned Document [facility] [address] [place] [address] Scanning, Generic Provider Social History [...] Description 01/15/2025 10:00 AM EST Office Visit [address] [place] [address] Jaycob Newman MD [address] [facility] [address] [place] [address] documented as of this encounter Visit Diagnoses Not on filedocumented in this encounter Additional Health Concerns Assessment Noted Time A fall risk assessment has been complete d for the patient 06/02/2024 8:50 AM EDT documented as of this encounter Care Teams Senior Project Manager Relationship Specialty Start Date End Date Shaikh Thompson MD [address] [place] [address] PCP - General Internal Medicine 03/12/23 documented as of this encounter
--- OUTSIDE RECORDS SUMMARY | 2024-11-01 20:12 | XMS_ITS | Encounter Summary ---
Author Organization [facility] Address [address] [place] [address] Care Team Providers Care Chief Lock Operator Name Role Phone Shaikh SHARMIN Thompson Primary Care Provider [phone] Mikhail Dutta MD Primary Care Provider [phone] Sadaf Hill NP Unavailable [phone] Encounter Details Date Type Department Care Team (Late st Contact Info) Description 05/23/2023 Clinisync Result Encounter [facility] External Department Unsolicited Shaikh Thompson MD [address] [place] [id number] Social History Tobacco Use Types Packs/Day Years [...] Priority Date/Time Associated Diagnosis Comments US RENAL BI 05/23/2023 8:53 AM EDT documented in this encounter Results * US RENAL BI (05/23/2023 8:53 AM EDT) Anatomical Region Laterality Modality Other 05/23/2023 8:53 AM EDT Narrative 05/23/2023 8:55 AM EDT [address] [address] Ultrasound Report Signed Patient: DEYSI HERNANDEZ MR#: [id number] : 1960 Acct:[id number] Age/Sex: 63 / F ADM Date: 05/23/23 Loc: US Attending Dr: Shaikh Donna Robles Ordering Physician: Shaikh Travis Thompson Date of Service: 05/23/23 Procedure(s): US renal BI Accession Number(s): [id number] cc: Shaikh Travis Thompson [address] [address] Patient Name: DEYSI HERNANDEZ MRN: [id number] date: 1960 Sex: F Assigned Patient Location: US Current Patient Location: US Accession/Order Number: [id number] Exam Date: 05/23/2023 07:38 Report Date: 05/23/2023 08:53 At the request of: SHAIKH DONNA Procedure: US renal BI EXAMINATION: US renal BI HISTORY: renal cyst, left N28.1 ; chronic bilateral flank pain COMPARISON: CT abdomen pelvis 04/23/2023 TECHNIQUE: Ultrasound examination was performed of the kidneys and urinary bladder. FINDINGS: RIGHT KIDNEY: 8 mm benign-appearing cysts within lateral cortex. No evidence of pelvocaliectasis, mass, or calculi. Moderate cortical thinning, 6 mm in thickness. Normal renal cortical parenchymal echogenicity. Color Doppler demonstrates blood flow within the kidney. Kidney: 10.4 x 5.3 x 4.6 cm LEFT KIDNEY: Moderate atrophy and marked cortical thinning, 3 mm in thickness.. Superior pole 1.4 cm hypoechoic area without appreciable internal blood flow. Small nonobstructing 4 mm stone within inferior pole. Color Doppler demonstrates blood flow within the kidney. Kidney: 7.1 x 3.8 x 3.1 cm BLADDER: No visible wall thickening, mass, or calculi. US/US renal BI IMPRESSION: 1. Left renal atrophy and marked cortical thinning of uncertain etiology. 2. Nonobstructing left nephrolithiasis. 3. Complex cysts versus hypoechoic mass within superior pole of left kidney. Consider follow-up CT abdomen without and with IV contrast to evaluate enhancement characteristics. Alternatively, MRI of the abdomen could be performed at this time or a follow-up ultrasound evaluation in 3 months to document stability. 4. Mild to moderate cortical thinning of right kidney. Electronically authenticated by: DEL ROD Date: 05/23/2023 08:53 Dictated By: Del Rod M.D. Signed By: 05/23/2355 DD/ TD/TT: Building Cleaner: Procedure Note Radiology, Radiologist, - 05/23/2023 [place] [id number] Ultrasound Report Signed Patient: DEYSI HERNANDEZ FMR#: [id number] : 1960Acct:[id number] Age/Sex: 63 / FADM Date: 05/23/23 Loc: US Attending Dr: Shaikh Donna Robles Ordering Physician: Shaikh Travis Thompson Date of Service: 05/23/23 Procedure(s): US renal BI Accession Number(s): [id number] cc: Shaikh Travis Thompson [place] [address] Patient Name: DEYSI HERNANDEZ MRN: [id number] date: 1960 Sex: F Assigned Patient Location: US Current Patient Location: US Accession/Order Number: [id number] Exam Date: 05/23/2023 07:38 Report Date: 05/23/2023 08:53 At the request of: SHAIKH DONNA Procedure: US renal BI EXAMINATION: US renal BI HISTORY: renal cyst, left N28.1 ; chronic bilateral flank pain COMPARISON: CT abdomen pelvis 04/23/2023 TECHNIQUE: Ultrasound examination was performed of the kidneys and urinary bladder. FINDINGS: RIGHT KIDNEY: 8 mm benign-appearing cysts within lateral cortex. Noevidence of pelvocaliectasis, mass, or calculi. Moderate cortical thinning, 6 mm in thickness. Normal renal cortical parenchymal echogenicity. Color Doppler demonstrates blood flow within the kidney. Kidney: 10.4 x 5.3 x 4.6 cm LEFT KIDNEY: Moderate atrophy and marked cortical thinning, 3 mm in thickness.. Superior pole 1.4 cm hypoechoic area without appreciable internal bloodflow. Small nonobstructing 4 mm stone within inferior pole. Color Doppler demonstrates blood flow within the kidney. Kidney: 7.1 x 3.8 x 3.1 cm BLADDER: No visible wall thickening, mass, or calculi. US/US renal BI IMPRESSION: 1. Left renal atrophy and marked cortical thinning of uncertain etiology. 2. Nonobstructing left nephrolithiasis. 3. Complex cysts versus hypoechoic mass within superior pole of leftkidney. Consider follow-up CT abdomen without and with IV contrast to evaluate enhancement characteristics. Alternatively, MRI of the abdomen could be performed at this time or a follow-up ultrasound evaluation in 3 months to document stability. 4. Mild to moderate cortical thinning of right kidney. Electronically authenticated by: DEL ROD Date: 05/23/2023 08:53 Dictated By: Del Rod M.D. Signed By:05/23/23 0855 DD/ 0853 TD/TT: Building Cleaner: us Shaikh Donna [facility] Final Result documented in this encounter Visit Diagnoses Not on filedocumented in this encounter Care Teams Chief Lock Operator Relationship Specialty Start Date End Date Shaikh Thompson MD [address] [place] [address] PCP - General Internal Medicine 05/08/23 09/29/23 Mikhail Dutta MD [address] [place] [address] PCP - General Family Medicine 09/30/23 Sadaf Hill NP [address] [place] [id number] Nurse Practitioner Family Medicine 09/30/23 documented as of this encounter
--- OUTSIDE RECORDS SUMMARY | 2024-11-01 20:13 | XMS_ITS | CCD ---
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 of transient ischemic attack (TIA), and cerebral infarction without residual deficits] Onset: 02-19-2023 02-19-2023 Episodic Other circulatory disease (4 sources) Other specified symptoms and signs involving the circulatory and respiratory systems; Translations: [Other specified symptoms and signs involving the circulatory and respiratory systems] Onset: 06-02-2024 Episodic Other diseases of kidney and ureters (9 sources) Cyst of kidney; Translations: [Cyst of kidney, acquired] Onset: 05-14-2023 12-31-2023 Episodic Other eye disorders (3 sources) Dry eyes; Translations: [Dry eye syndrome of bilateral lacrimal glands] Onset: 05-17-2023 05-17-2023 Episodic Other eye disorders (3 sources) Acquired nasolacrimal duct obstruction; 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] Onset: 06-04-2023 06-04-2023 Episodic Other hematologic conditions (6 sources) Other specified abnormalities of plasma proteins; Translations: [Other abnormal blood chemistry] Onset: 08-16-2021 Episodic Other hematologic conditions (20 sources) Erythrocytosis; Translations: [Secondary polycythemia] Onset: 03-14-2016 03-14-2016 Episodic Other nutritional; endocrine; and metabolic disorders (2 sources) Body mass index (BMI) 25.0-25.9, adult; Translations: [Body mass index (BMI) 25.0-25.9, adult] Onset: 06-02-2024 Episodic Other screening for suspected conditions (not mental disorders or infectious disease) (20 sources) Patient encounter status; Translations: [Encounter for screening mammogram for malignant neoplasm of breast] Onset: 03-27-2016 Episodic Comment on above: Problem List clean-u p per request of Phys. EHR Cmte Residual codes; unclassified (4 sources) Disorientation, unspecified; [...] Spondylosis; intervertebral disc disorders; other back problems (4 sources) Chronic low back pain; Translations: [Chronic right-sided low back pain without sciatica] Onset: 05-13-2023 07-30-2023 Episodic Unclassified (18 sources) None (qualifier value) 11-16-2015 Unclassified (1 source) Cough R05.9 Unclassified (1 source) COUGH, UNSPECIFIED; Translations: [COUGH, UNSPECIFIED] Onset: 02-19-2022 Unclassified (3 sources) Onset: 06-02-2024 06-02-2024 Results Test Name Value Interpretation Reference Range Facility VAS LAB PVR W/O EXERCISEon 08-13-2024 Preliminary Cardiolo gy Report [address], Suite [facility], [place] [address] Preliminary Vascular Lab Report [facility] US PVR WITHOUT EXERCISE Patient Name: DEYSI Payne Physician: [id number] Jaycob Goldstein MD, [facility] Study Date: 08/13/2024 Ordering Provider: [id number] JAYCOB GOLDSTEIN MRN/PID: [id number] Fellow: Technologist: Juhi Stoddard RDCS, RVT Date of : 1960 Technologist 2: Gender: F Admission Status: Outpatient Location [facility] Performed: Diagnosis/ICD: Other specified symptoms and signs involving the circulatory and respiratory systems-R09.89; Peripheral vascular disease, unspecified-I73.9 Indication: HTN, Hyperlipidemia, History of Ischemic CVA, Angina, COPD, CKD-Stage IIIb, Tobacco Abuse CPT Codes: 21851 Peripheral artery PVR (multi segmental pressure PRELIMINARY [...] RVT on 08/13/2024 at 10:54:51 AM Final RadiologyHenri MD - 08/13/2024 Preliminary Cardiology Report [address], [address] [place], [place] [id number] Preliminary Vascular Lab Report [facility]ASC US PVR WITHOUT EXERCISE Patient Name: DEYSI Payne Physician: [id number] Jaycob Goldstein MD, [facility] Study Date: 08/13/2024 Ordering Provider: [id number] JAYCOB GOLDSTEIN MRN/PID: [id number] Fellow: Technologist: Juhi Stoddard RDCS, RVT Date of : 1960 Technologist 2: Gender: F Admission Status: Outpatient Location [facility] Performed: Diagnosis/ICD: Other specified symptoms and signs involving the circulatory and respiratory systems-R09.89; Peripheral vascular disease, unspecified-I73.9 Indication: HTN, Hyperlipidemia, History of Ischemic CVA, Angina, COPD, CKD-Stage IIIb, Tobacco Abuse CPT Codes: 40652 Peripheral artery PVR (multi segmental pressure PRELIMINARY [...] RVT on 08/13/2024 at 10:54:[address] [facility] Radiology Study observation (narrative) [facility] VASC LAB PVR W/O EXERCISEOrd ered By: Radiologist Radiology on 08-13-2024 [facility] Work Phone: VASC US PVR WITHOUT EXERCISE on 08-13-2024 VASC US PVR WITHOUT EXERCISE [address], [place] [address] Vascular Lab Report [facility]ASC US PVR WITHOUT EXERCISE Patient Name: DEYSI HERNANDEZ Elmer Physician: [id number] Goldstein MD, [facility] Study Date: 08/13/2024 Ordering Provider: [id number] JAYCOB GOLDSTEIN MRN/PID: [id number] Fellow: Technologist: Juhi Stoddard RDCS, RVT Date of /Age: 3 1960 64 years Technologist 2: Gender: F Admission Status: Outpatient Location Performed: [facility] Diagnosis/ICD: Other specified symptoms and signs involving the circulatory and respiratory systems-R09.89; Peripheral vascular disease, unspecified-I73.9 Indication: HTN, Hyperlipidemia, History of Ischemic CVA, Angina, COPD, CKD-Stage IIIb, Tobacco Abuse CPT Codes: 53625 Peripheral artery PVR (multi segmental pressure CONCLUSIONS: [...] Left Brachial Pressure 117 mmHg 113 mmHg [id number] Jaycob Goldstein MD, FACC Final Normal [facility] Basophils Auto (Bld) [#/Vol] Ordered By: Jaycob Goldstein on 07-10-2024 Basophils (Bld) [#/Vol] Automated basophil count 0.0-0.2 [facility] Basophils/100 WBC Auto (Bld) Ordered By: Jaycob Goldstein on 07-10-2024 Basophils/100 WBC (Bld) Automated basophil % . [facility] Blood Urea Nitrogenon 2024 Urea nitrogen [Mass/Vol] 23 mg/dL Normal 7-25 [facility] Comment on above: Performed By: #### P P, BUN, CREAT, LIPID, LYTES, CBC #### [address] Carbon dioxide, total [Moles /volume] in Serum or PlasmaOrdered By: Jaycob Goldstein on 07-10-2024 CO2 [Moles/Vol] Carbon dioxide, tota l [Moles/volume] in Serum or Plasma 21.0-31.0 [facility] Chloride [Moles/volume] in S oralia or PlasmaOrdered By: Jaycob Goldstein on 07-10-2024 Chloride [Moles/Vol] Chloride [Moles/vol ume] in Serum or Plasma 98-107 [facility] Cholesterol [Mass/volume] in Serum or PlasmaOrdered By: Jaycob Goldstein on 07-10-2024 Cholesterol [Mass/Vol] Cholesterol [Mass /volume] in Serum or Plasma High 140-200 [facility] Comment on above: Chol less than 200 m g/dl low riskChol 201-239 mg/dl borderline riskChol 240 mg/dl and greater high risk Cholesterol in HDL [Mass/vol ume] in Serum or PlasmaOrdered By: Jaycob Goldstein on 07-10-2024 Cholesterol in HDL [Mass/Vol] Serum or plasma high density lipoprotein (HDL) cholesterol measurement 23- [facility] Comment on above: HDL CHOL ATP-III CLA SSIFICATION Cardiovascular RiskHDL > or equal to 60 mg/dL LOWHDL < 40 mg/dL HIGH Cholesterol in LDL Calc [Mas s/Vol]Ordered By: Jaycob Goldstein on 07-10-2024 Cholesterol in LDL [Mass/Vol] Cholesterol in LDL [Mass/volume] in Serum or Plasma by calculation High 0-100 [facility] Comment on above: LDL ATP III CLASSIFI CATIONLDL less than 100 mg/dL OptimalLDL 100-129 mg/dL Near or above optimalLDL 130-159 mg/dL Borderline highLDL 160-189 mg/dL HighLDL greater than 189 mg/dL Very high Cholesterol in VLDL Calc [Ma ss/Vol]Ordered By: Jaycob Goldstein on 07-10-2024 Cholesterol in VLDL [Mass/Vol] Cholesterol in VLDL [Mass/volume] in Serum or Plasma by calculation [facility] Coagulation Profileon 2024 aPTT Coag (Bld) [Time] 31.2 s Normal 25.1-36.5 [facility] Comment on above: Result Comment: A he matocrit value greater than 55% may lead to inaccurate results in coagulation testing. Patients having hematocrit values >55% require a special collection tube for coagulation studies. Please contact the laboratory at [phone] for redraw instructions. PERFORMED BY: [address] [place] [address] PATHOLOGIST GANG PUSHER CARLA GARCIA M.D. Performed By: #### P P, BUN, CREAT, LIPID, LYTES, CBC #### [facility] [address] [place], [place] [id number] [facility] INR Coag (PPP) [Relative time] 1.0 {INR} Normal [facility] Comment on above: Result Comment: INR Therapeutic [...] valves: 3 - 4.5 Performed By: #### P P, BUN, CREAT, LIPID, LYTES, CBC #### [facility] [address] [place], [place] [id number] [place] PT Coag (PPP) [Time] 11.2 s Normal 9.0-12.9 [facility] Comment on above: Result Comment: A he matocrit value greater than 55% may lead to inaccurate results in coagulation testing. Patients having hematocrit values >55% require a special collection tube for coagulation studies. Please contact the laboratory at [phone] for redraw instructions. Performed By: #### P P, BUN, CREAT, LIPID, LYTES, CBC #### [address] Complete Blood Count Auto Di ffon 07-10-2024 Basophils (Bld) [#/Vol] 0.1 10*3/uL Normal 0.0-0.2 [facility] Comment on above: Result Comment: PERF ORMED BY: [place] [address] PATHOLOGIST GANG PUSHER CARLA GARCIA M.D. Performed By: #### P P, BUN, CREAT, LIPID, LYTES, CBC #### [address] Basophils/100 WBC (Bld) 1.0 % Normal . [facility] Comment on above: Performed By: #### P P, BUN, CREAT, LIPID, LYTES, CBC #### [address] Eosinophils (Bld) [#/Vol] 0.2 10*3/uL Normal 0.0-0.45 [facility] Comment on above: Performed By: #### P P, BUN, CREAT, LIPID, LYTES, CBC #### [address] Eosinophils/100 WBC (Bld) 2.4 % Normal . [facility] Comment on above: Performed By: #### P P, BUN, CREAT, LIPID, LYTES, CBC #### [address] Erythrocyte distribution width (RBC) [Ratio] 14.1 % Normal 11.9-15.3 [facility] Comment on above: Performed By: #### P P, BUN, CREAT, LIPID, LYTES, CBC #### [address] Hematocrit (Bld) [Volume fraction] 48.4 % High 34.0-46.4 [facility] Comment on above: Performed By: #### P P, BUN, CREAT, LIPID, LYTES, CBC #### [address] Hemoglobin (Bld) [Mass/Vol] 17.0 g/dL High 11.8-15.4 [facility] Comment on above: Performed By: #### P P, BUN, CREAT, LIPID, LYTES, CBC #### [address] Lymphocytes (Bld) [#/Vol] 2.3 10*3/uL Normal 1.00-4.8 [facility] Comment on above: Performed By: #### P P, BUN, CREAT, LIPID, LYTES, CBC #### [address] Lymphocytes/100 WBC (Bld) 27.6 % Normal . [facility] Comment on above: Performed By: #### P P, BUN, CREAT, LIPID, LYTES, CBC #### [address] MCH (RBC) [Entitic mass] 31.5 pg Normal 24.7-34.3 [facility] Comment on above: Performed By: #### P P, BUN, CREAT, LIPID, LYTES, CBC #### [address] MCV (RBC) [Entitic vol] 89.6 fL Normal 80-100 [facility] Comment on above: Performed By: #### P P, BUN, CREAT, LIPID, LYTES, CBC #### [address] Mean Corpuscular HGB Conc 35.2 g/dL High 32.0-35.0 [facility] Comment on above: Performed By: #### P P, BUN, CREAT, LIPID, LYTES, CBC #### [address] Monocytes (Bld) [#/Vol] 0.7 10*3/uL Normal 0.0-0.8 [facility] Comment on above: Performed By: #### P P, BUN, CREAT, LIPID, LYTES, CBC #### [address] Monocytes/100 WBC (Bld) 8.1 % Normal . [facility] Comment on above: Performed By: #### P P, BUN, CREAT, LIPID, LYTES, CBC #### [address] Neutrophils (Bld) [#/Vol] 5.1 10*3/uL Normal 1.8-7.7 [facility] Comment on above: Performed By: #### P P, BUN, CREAT, LIPID, LYTES, CBC #### [address] Neutrophils/100 WBC (Bld) 60.9 % Normal . [facility] Comment on above: Performed By: #### P P, BUN, CREAT, LIPID, LYTES, CBC #### [address] NRBC% 0.1 /100{WBC} Normal 0-0.5 [facility] Comment on above: Performed By: #### P P, BUN, CREAT, LIPID, LYTES, CBC #### [address] Platelet mean volume (Bld) [Entitic vol] 7.4 fL Normal 6.3-10.7 [facility] Comment on above: Performed By: #### P P, BUN, CREAT, LIPID, LYTES, CBC #### [address] Platelets (Bld) [#/Vol] 215 10*3/uL Normal 150-450 [facility] Comment on above: Performed By: #### P P, BUN, CREAT, LIPID, LYTES, CBC #### [facility] [address] RBC (Bld) [#/Vol] 5.40 10*6/uL High 3.60-5.00 [facility] Comment on above: Performed By: #### P P, BUN, CREAT, LIPID, LYTES, CBC #### [facility] [address] WBC (Bld) [#/Vol] 8.4 10*3/uL Normal 3.8-11.6 [facility] Comment on above: Performed By: #### P P, BUN, CREAT, LIPID, LYTES, CBC #### [address] Creatinineon 07-10-2024 Creatinine [Mass/Vol] 1.38 mg/dL High 0.60-1.20 [facility] Comment on above: Performed By: #### P P, BUN, CREAT, LIPID, LYTES, CBC #### [address] Estimated GFR 43.278 mL/Min Normal [facility] Comment on above: Performed By: #### P P, BUN, CREAT, LIPID, LYTES, CBC #### [address] Creatinine [Mass/volume] in Serum or PlasmaOrdered By: Jaycob Goldstein on 07-10-2024 Creatinine [Mass/Vol] Creatinine [Mass/v olume] in Serum or Plasma High 0.60-1.20 [facility] ECG 12 lead ECGon 07-10-2024 [address] [facility] Main [place] [address] [place] [address] Electrocardiograph Report Signed Patient: Deysi Hernandez MR#: [id number] : 1960 Acct:[id number] Age/Sex: 64 / F ADM Date: 07/10/24 Loc: Room: Type: [facility] Attending Dr: Jaycob Goldstein MD Ordering Provider: Jaycob Goldstein MD, [facility] Date of Service: 07/10/24 ECG/ECG 12 lead ECG: [facility] PST Copies to: Test Reason : Blood Pressure : */* mmHG Vent. Rate : 65 BPM Atrial Rate : 65 BPM P-R Int : 136 ms QRS Dur : 82 ms QT Int : 432 ms P-R-T Axes : 67 88 90 degrees QTcB Int : 449 ms Normal sinus rhythm Nonspecific ST and T wave abnormality When compared with ECG of 12-Feb-2023 07:24, Nonspecific T wave abnormality now evident in Lateral leads Confirmed by WAQAR MARTINEZ MD ([id number]) on 07/10/2024 3:26:31 PM Referred By: Electronically Signed By: WAQAR MARTINEZ MD Transcribed By: MUS Signed By Waqar Martinez MD 0 07/10/24 1526 Normal [facility] Electrolyteson 07-10-2024 Anion gap [Moles/Vol] 12.3 mmol/L Normal 6.0-15.0 [facility] Comment on above: Performed By: #### P P, BUN, CREAT, LIPID, LYTES, CBC #### [facility] [address] [place] [address] [place] Chloride [Moles/Vol] 103 mmol/L Normal 98-107 [facility] Comment on above: Performed By: #### P P, BUN, CREAT, LIPID, LYTES, CBC #### [facility] [address] [place] [address] [place] CO2 [Moles/Vol] 27.7 mmol/L Normal 21.0-31.0 [facility] Comment on above: Performed By: #### P P, BUN, CREAT, LIPID, LYTES, CBC #### [facility] [address] [place] [id number] [place] Potassium [Moles/Vol] 5.0 mmol/L Normal 3.5-5.1 [facility] Comment on above: Performed By: #### P P, BUN, CREAT, LIPID, LYTES, CBC #### [facility] [address] [place] [id number] [place] Sodium [Moles/Vol] 138 mmol/L Normal 136-145 [facility] Comment on above: Performed By: #### P P, BUN, CREAT, LIPID, LYTES, CBC #### [facility] [address] Eosinophils Auto (Bld) [#/Vo l]Ordered By: Jaycob Goldstein on 07-10-2024 Eosinophils (Bld) [#/Vol] Automated eosinophil count 0.0-0.45 [facility] Eosinophils/100 WBC Auto (Bl d)Ordered By: Jaycob Goldstein on 07-10-2024 Eosinophils/100 WBC (Bld) Automated eosinophil % . [facility] Erythrocyte distribution wid th Auto (RBC) [Ratio]Ordered By: Jaycob Goldstein on 07-10-2024 Erythrocyte distribution width (RBC) [Ratio] Erythrocyte distribution width [Ratio] by Automated count 11.9-15.3 [facility] Hematocrit Auto (Bld) [Volum e fraction]Ordered By: Jaycob Goldstein on 07-10-2024 Hematocrit (Bld) [Volume fraction] Hematocrit [Volume Fraction] of Blood by Automated count High 34.0-46.4 [facility] Hemoglobin [Mass/volume] in BloodOrdered By: Jaycob Goldstein on 07-10-2024 Hemoglobin (Bld) [Mass/Vol] Hemoglobin [Mass/volume] in Blood High 11.8-15.4 [facility] INR in Platelet poor plasma by Coagulation assayOrdered By: Jaycob Goldstein on 07-10-2024 INR Coag (PPP) [Relative time] INR in Platelet poor plasma by Coagulation assay [facility] Comment on above: INR Therapeutic [...] with mechanical heart valves: 3 - 4.5 Leukocytes [#/volume] correc elliot for nucleated erythrocytes in Blood by Automated counOrdered By: Jaycob Goldstein on 07-10-2024 WBC corrected for nucl RBC Auto (Bld) [#/Vol] Leukocytes [#/volume] corrected for nucleated erythrocytes in Blood by Automated coun 3.8-11.6 [facility] Lipid Panelon 07-10-2024 Cholesterol [Mass/Vol] 230 mg/dL High 140-200 [facility] Comment on above: Result Comment: Chol less than 200 mg/dl low risk Chol 201-239 mg/dl borderline risk Chol 240 mg/dl and greater high risk Performed By: #### P P, BUN, CREAT, LIPID, LYTES, CBC #### [facility] [address] Cholesterol in HDL [Mass/Vol] 46 mg/dL Normal 23-92 [facility] Comment on above: Result Comment: HDL CHOL ATP-III CLASSIFICATION Cardiovascular Risk HDL > or equal to 60 mg/dL LOW HDL < 40 mg/dL HIGH Performed By: #### P P, BUN, CREAT, LIPID, LYTES, CBC #### [address] Cholesterol.total/Chol esterol in HDL [Mass ratio] 5.0 {ratio} Normal <5.0 [facility] Comment on above: Result Comment: PERF ORMED BY: [place] [address] PATHOLOGIST GANG PUSHER MAZIN LYLES M.D. Performed By: #### P P, BUN, CREAT, LIPID, LYTES, CBC #### [address] LDL Cholesterol,Calculated 149 mg/dL High 0-100 [facility] Comment on above: Result Comment: LDL ATP III CLASSIFICATION LDL less than 100 mg/dL Optimal LDL 100-129 mg/dL Near or above optimal LDL 130-159 mg/dL Borderline high LDL 160-189 mg/dL High LDL greater than 189 mg/dL Very high Performed By: #### P P, BUN, CREAT, LIPID, LYTES, CBC #### [facility] [address] Triglyceride w/Reflex 177 mg/dL High 0-149 [facility] Comment on above: Result Comment: TRIG ATP III CLASSIFICATION TRIG less than 150 mg/dL Normal TRIG 150-199 mg/dL Borderline high TRIG 200-500 mg/dL High TRIG greater than 500 mg/dL Very high Standard traceable to the Center for Disease Conrtrol and Prevention (CDC) test method. Performed By: #### P P, BUN, CREAT, LIPID, LYTES, CBC #### [facility] [address] VLDL CHOLESTEROL 35 mg/dL Normal [facility] Comment on above: Performed By: #### P P, BUN, CREAT, LIPID, LYTES, CBC #### [facility] [address] Lymphocytes Auto (Bld) [#/Vo l]Ordered By: Jaycob Goldstein on 07-10-2024 Lymphocytes (Bld) [#/Vol] Lymphocytes [#/volume] in Blood by Automated count 1.00-4.8 [facility] Lymphocytes/100 WBC Auto (Bl d)Ordered By: Jaycob Goldstein on 07-10-2024 Lymphocytes/100 WBC (Bld) Lymphocytes/100 leukocytes in Blood by Automated count . [facility] MCH Auto (RBC) [Entitic mass ]Ordered By: Jaycob Goldstein on 07-10-2024 MCH (RBC) [Entitic mass] MCH [Entitic mass] by Automated count 24.7-34.3 [facility] MCHC Auto (RBC) [Mass/Vol]Or dered By: Jaycob Goldstein on 07-10-2024 MCHC (RBC) [Mass/Vol] MCHC [Mass/volume] by Automated count High 32.0-35.0 [facility] MCV Auto (RBC) [Entitic vol] Ordered By: Jaycob Goldstein on 07-10-2024 MCV (RBC) [Entitic vol] MCV [Entitic volume] by Automated count 80-100 [facility] Monocytes Auto (Bld) [#/Vol] Ordered By: Jaycob Goldstein on 07-10-2024 Monocytes (Bld) [#/Vol] Automated blood monocyte count 0.0-0.8 [facility] Monocytes/100 WBC Auto (Bld) Ordered By: Jaycob Goldstein on 07-10-2024 Monocytes/100 WBC (Bld) Automated monocyte % . [facility] Neutrophils Auto (Bld) [#/Vo l]Ordered By: Jaycob Goldstein on 07-10-2024 Neutrophils (Bld) [#/Vol] Neutrophils [#/volume] in Blood by Automated count 1.8-7.7 [facility] Neutrophils/100 WBC Auto (Bl d)Ordered By: Jaycob Goldstein on 07-10-2024 Neutrophils/100 WBC (Bld) Automated neutrophil % . [facility] No Panel InformationOrdered By: Jaycob Goldstein on 07-10-2024 Estimated GFR (CKD-EPI) 43.278 mL/Min [facility] Creatinine Clearance (Chem N/A [facility] Nucleated erythrocytes [Pres ence] in Blood by Automated countOrdered By: Jaycob Goldstein on 07-10-2024 Nucleated RBC Auto Ql (Bld) Nucleated erythrocytes [Presence] in Blood by Automated count 0-0.5 [facility] Platelet mean volume Auto (B ld) [Entitic vol]Ordered By: Jaycob Godlstein on 07-10-2024 Platelet mean volume (Bld) [Entitic vol] Platelet mean volume [Entitic volume] in Blood by Automated count 6.3-10.7 [facility] Platelets Auto (Bld) [#/Vol] Ordered By: Jaycob Goldstein on 07-10-2024 Platelets (Bld) [#/Vol] Platelets [#/volume] in Blood by Automated count 150-450 [facility] Potassium [Moles/volume] in Serum or PlasmaOrdered By: Jaycob Goldstein on 07-10-2024 Potassium [Moles/Vol] Potassium [Moles/v olume] in Serum or Plasma 3.5-5.1 [facility] Prothrombin time (PT)Ordered By: Jaycob Goldstein on 07-10-2024 PT Coag (PPP) [Time] Prothrombin time (PT) 9.0- 12.9 [facility] Comment on above: A hematocrit value g reater than 55% may lead to inaccurate results in coagulation testing. Patients having hematocrit values >55% require a special collection tube for coagulation studies. Please contact the laboratory at [phone] for redraw instructions. RBC Auto (Bld) [#/Vol]Ordere d By: Jaycob Goldstein on 07-10-2024 RBC (Bld) [#/Vol] Erythrocytes [#/volu me] in Blood by Automated count High 3.60-5.00 [facility] Serum or plasma anion gap de terminationOrdered By: Jaycob Goldstein on 07-10-2024 Anion gap [Moles/Vol] Serum or plasma an ion gap determination 6.0-15.0 [facility] Serum or plasma total choles terol/high density lipoprotein (HDL) cholesterol mass ratOrdered By: Jaycob Goldstein on 07-10-2024 Cholesterol.total/Chol esterol in HDL [Mass ratio] Serum or plasma total cholesterol/high density lipoprotein (HDL) cholesterol mass rat <5.0 [facility] Sodium [Moles/volume] in Ser um or PlasmaOrdered By: Jaycob Goldstein on 07-10-2024 Sodium [Moles/Vol] Sodium [Moles/volume ] in Serum or Plasma 136-145 [facility] Triglyceride [Mass/volume] i n Serum or PlasmaOrdered By: Jaycob Goldstein on 07-10-2024 Triglyceride [Mass/Vol] Triglyceride [Mass/volume] in Serum or Plasma High 0-149 [facility] Comment on above: TRIG ATP III CLASSIF ICATIONTRIG less than 150 mg/dL NormalTRIG 150-199 mg/dL Borderline highTRIG 200-500 mg/dL High TRIG greater than 500 mg/dL Very highStandard traceable to the Center for Disease Conrtrol and Prevention (CDC) test method. Urea nitrogen [Mass/volume] in Serum or PlasmaOrdered By: Jaycob Goldstein on 07-10-2024 Urea nitrogen [Mass/Vol] Urea nitrogen [Mass/volume] in Serum or Plasma 7-25 [facility] WBC Auto (Bld) [#/Vol]Ordere d By: Jaycob Goldstein on 07-10-2024 WBC (Bld) [#/Vol] Leukocytes [#/volume ] in Blood by Automated count 3.8-11.6 [facility] aPTT in Platelet poor plasma by Coagulation assayOrdered By: Jaycob Goldstein on 07-10-2024 aPTT Coag (PPP) [Time] Activated partial thromboplastin time (aPTT) in platelet poor plasma by coagulation a 25.1-36.5 [facility] Comment on above: A hematocrit value g reater than 55% may lead to inaccurate results in coagulation testing. Patients having hematocrit values >55% require a special collection tube for coagulation studies. Please contact the laboratory at [phone] for redraw instructions. CTA Heart and Coronary arter ies WO and W contrast Roseann 07-06-2024 Source Facility: [facility] Interpreted By: Donaldo Rae, STUDY: CT ANGIO CORONARY ART WITH HEARTFLOW IF SCORE >30%; 07/02/2024 1:57 pm INDICATION: Signs/Symptoms:angina. COMPARISON: None. ACCESSION NUMBER(S): [id number] ORDERING CLINICIAN: JAYCOB GOLDSTEIN TECHNIQUE: Using multi-detector CT technology, Bertram 64-slice scanner, axial, sequential imaging with retrospective gating was performed of the chest following the intravenous administration of contrast material. A low-osmolar contrast agent was used 75 ml of Omnipaque 350. Using prospective ECG gating, CT scan of the coronary arteries was performed without intravenous contrast. Coronary calcium scoring was performed according to the method of Agatston. In addition, CT-FFR analysis was also performed. CT925 The patient was premedicated with atenolol and 0.4 mg sublingual nitroglycerin per protocol for heart rate control and coronary dilation, respectively. For optimization of anatomic evaluation, multiplanar reconstruction, maximum intensity projections, and advanced 3-D off-line postprocessing were performed on a dedicated stand-alone workstation under the direct supervision of the interpreting physician. Independent FFR analysis of Heartflow 3D model was performed by interpreting physician. CT Dose-Length Product (DLP): 813.8 mGy/cm CT Dose Reduction Employed: Yes iterative reconstruction FINDINGS: The left main is normal sized vessel that bifurcates into the LAD and circumflex. There is no significant atherosclerotic change or stenotic disease. LEFT ANTERIOR DESCENDING ARTERY: The LAD is a normal size vessel that wraps around the apex. Proximal calcified plaque with 50% stenosis. Proximal FFR 0.94 (hemodynamically nonsignificant). Mid vessel calcified plaque with 50% stenosis. Mid FFR 0.86 (hemodynamically nonsignificant). LAD gives rise to 2 acute diagonal branches. D1: Small, normal. D2: Proximal noncalcified plaque without significant stenosis. LEFT CIRCUMFLEX ARTERY: The LCfx is a normal size vessel, which is non-dominant. Proximal/mid calcified plaque without significant stenosis. LCfx gives rise to 3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 12/02/2023 Comments: Continue take ibuprofen syep-aky-oseiucc 600 mg every 6-8 hours for the [...] opioids can be used to help relieve fcszotua-ew-jfcvcy pain and are often prescribed following a [...] or flush them down the toilet, following guidanc (more content not included)... Normal [facility] Extra Blueon 11-29-2023 Tube Collected Plasma Yes Invalid Interpretation Code [facility] Comment on above: Performed By: #### 1 [id number] #### [facility] [address] [place] [address] HEMATOLOGYOrdered By: SYSTEM SYSTEM on 11-29-2023 Basophils/100 [...] Troponin HS 4.80 pg/mL Low 10.10-27.1 0 [facility] Comment on above: Result Comment: The 95% CI (Confidence Interval) PPV (Positive Predictive Value) for myocardial infarction in females is 38 pg/mL, in males 51 pg/mL. The results should be used in conjunction with clinical conditions of myocardial infarction. (Access High Sensitivity Troponin I Instructions For Use, [place], September 2017) Performed By: #### 2 [id number] #### [facility] [address] [place] [address] XR Ribs Unilat 3 Views Left w/ [...] mGy = . DAP = . Normal [facility] eGFRon 11-29-2023 eGFR 51 mL/min/1.73 m2 Low >=59 [facility] Comment on above: Performed By: #### 1 [id number] #### [facility] [address] [place] [address] ALL CBC WITH AUTO DIFFon BASOPHILS ABSOLUTE AUTO 0.1 [facility] Basophils/100 WBC (Bld) 1.5 % 0.2 - 2.0 % [facility] Eosinophils/100 WBC (Bld) 6.5 % 0.9 - 7.0 % [facility] Erythrocyte distribution width (RBC) [Ratio] 13.3 % 11.0 - 15.0 % [facility] Hematocrit (Bld) [Volume fraction] 46.8 % 36.0 - 48.0 % [facility] Hemoglobin (Bld) [Mass/Vol] 15.5 g/dL 12.0 - 16.0 g/dL [facility] IMMATURE GRANULOCYTES ABS AUTO 0.01 [facility] Immature granulocytes/100 WBC (Bld) 0.1 % 0.0 - 0.5 % [facility] Interpretation and review of laboratory results Abnormal [facility] LYMPHOCYTES ABSOLUTE AUTO 2.4 [facility] Lymphocytes/100 WBC (Bld) 26.4 % 20.5 - 60.0 % [facility] MCH (RBC) [Entitic mass] 30.6 pg 26.7 - 34.[address] [facility] MCHC (RBC) [Mass/Vol] 33.1 g/dL 29.9 - 35.2 g/dL [facility] MCV (RBC) [Entitic vol] 92.5 fL 81.0 - 99.[address] [facility] MONOCYTES ABSOLUTE AUTO 0.[address] [facility] Monocytes/100 WBC (Bld) 9.9 % 1.7 - 12.0 % [facility] NEUTROPHILS ABSOLUTE AUTO 5.0 [facility] Neutrophils/100 WBC (Bld) 55.6 % 43.0 - 75.0 % [facility] Platelet mean volume (Bld) [Entitic vol] 9.5 fL 9.5 - 13.[address] [facility] TBH EO # 0.6 [facility] PLT 202 [facility] RBC 5.06 [facility] WBC 9.1 [facility] CLINISYNC [facility] Aspartate aminotransferase [ Enzymatic activity/volume] in Serum or PlasmaOrdered By: Marquez Beal on 03-12-2023 AST [Catalytic activity/Vol] 20 U/L 13-39 [facility] Calcium [Mass/volume] in Ser um or PlasmaOrdered By: Marquez Beal on 03-12-2023 Calcium [Mass/Vol] 9.8 mg/dL 8.6-10.3 [facility] Carbon dioxide, total [Moles /volume] in Serum or PlasmaOrdered By: Marquez Beal on 03-12-2023 CO2 [Moles/Vol] 30.0 mmol/L 21.0-31.0 [facility] Chloride [Moles/volume] in S oralia or PlasmaOrdered By: Marquez Beal on 03-12-2023 Chloride [Moles/Vol] 108 mmol/L 98-107 [facility] Cholesterol [Mass/volume] in Serum or PlasmaOrdered By: Marquez Beal on 03-12-2023 Cholesterol [Mass/Vol] 171 mg/dL 140-200 [facility] Comment on above: Chol less than 200 m g/dl low riskChol 201-239 mg/dl borderline riskChol 240 mg/dl and greater high risk Cholesterol in LDL Calc [Mas s/Vol]Ordered By: Marquez Beal on 03-12-2023 Cholesterol in LDL [Mass/Vol] 93 mg/dL 0-100 [facility] Comment on above: LDL ATP III CLASSIFI CATIONLDL less than 100 mg/dL OptimalLDL 100-129 mg/dL Near or above optimalLDL 130-159 mg/dL Borderline highLDL 160-189 mg/dL HighLDL greater than 189 mg/dL Very high Cholesterol in VLDL Calc [Ma ss/Vol]Ordered By: Marquez Beal on 03-12-2023 Cholesterol in VLDL [Mass/Vol] 33 mg/dL [facility] Creatinine [Mass/volume] in Serum or PlasmaOrdered By: Marquez Beal on 03-12-2023 Creatinine [Mass/Vol] 1.39 mg/dL 0.60-1.20 [facility] Glucose [Mass/volume] in Ser um or PlasmaOrdered By: Marquez Beal on 03-12-2023 Glucose [Mass/Vol] 93 mg/dL 70-100 [facility] Comment on above: ADA recommended refe rence rangeRandom Glucose Reference Range is dependent on time and content of last meal. Glucose of more than 200 mg/dL in a nonstressed, ambulatory subject supports the diagnosis of Diabetes Mellitus. No Panel InformationOrdered By: Marquez Beal on 03-12-2023 Estimated GFR (CKD-EPI) 43.442 mL/Min [facility] Creatinine Clearance (Chem N/A [facility] Potassium [Moles/volume] in Serum or PlasmaOrdered By: Marquez Beal on 03-12-2023 Potassium [Moles/Vol] 5.4 mmol/L 3.5-5.1 [facility] Serum or plasma anion gap de terminationOrdered By: Marquez Beal on 03-12-2023 Anion gap [Moles/Vol] 8.4 mmol/L 6.0-15.0 [facility] Serum or plasma high density lipoprotein (HDL) cholesterol measurementOrdered By: Marquez Beal on 03-12-2023 Cholesterol in HDL [Mass/Vol] 45 mg/dL 23- [facility] Comment on above: HDL CHOL ATP-III CLA SSIFICATION Cardiovascular RiskHDL > or equal to 60 mg/dL LOWHDL < 40 mg/dL HIGH Serum or plasma total choles terol/high density lipoprotein (HDL) cholesterol mass ratOrdered By: Marquez Beal on 03-12-2023 Cholesterol.total/Chol esterol in HDL [Mass ratio] 3.8 {ratio} <5.0 [facility] Sodium [Moles/volume] in Ser um or PlasmaOrdered By: Marquez Beal on 03-12-2023 Sodium [Moles/Vol] 141 mmol/L 136-145 [facility] Triglyceride [Mass/volume] i n Serum or PlasmaOrdered By: Marquez Beal on 03-12-2023 Triglyceride [Mass/Vol] 165 mg/dL 0-149 [facility] Comment on above: TRIG ATP III CLASSIF ICATIONTRIG less than 150 mg/dL NormalTRIG 150-199 mg/dL Borderline highTRIG 200-500 mg/dL High TRIG greater than 500 mg/dL Very highStandard traceable to the Center for Disease Conrtrol and Prevention (CDC) test method. Urea nitrogen [Mass/volume] in Serum or PlasmaOrdered By: Marquez Beal on 03-12-2023 Urea nitrogen [Mass/Vol] 18 mg/dL 7-25 [facility] Basophils Auto (Bld) [#/Vol] Ordered By: Jacques East on 02-14-2023 Basophils (Bld) [#/Vol] 0.0 10*3/uL 0.0-0.2 [facility] Basophils/100 WBC Auto (Bld) Ordered By: Jacques East on 02-14-2023 Basophils/100 WBC (Bld) 0.1 % . [facility] Calcium [Mass/volume] in Ser um or PlasmaOrdered By: Jacques East on 02-14-2023 Calcium [Mass/Vol] 9.4 mg/dL 8.6-10.3 [facility] Carbon dioxide, total [Moles /volume] in Serum or PlasmaOrdered By: Jacques East on 02-14-2023 CO2 [Moles/Vol] 26.2 mmol/L 21.0-31.0 [facility] Chloride [Moles/volume] in S oralia or PlasmaOrdered By: Jacques Chirinosr on 02-14-2023 Chloride [Moles/Vol] 103 mmol/L 98-107 [facility] Creatinine [Mass/volume] in Serum or PlasmaOrdered By: Obreinaldo Talbotomar on 02-14-2023 Creatinine [Mass/Vol] 1.35 mg/dL 0.60-1.20 [facility] Eosinophils Auto (Bld) [#/Vo l]Ordered By: Obreinaldo Talbotomar on 02-14-2023 Eosinophils (Bld) [#/Vol] 0.0 10*3/uL 0.0-0.45 [facility] Eosinophils/100 WBC Auto (Bl d)Ordered By: Obreinaldo Talbotomar on 02-14-2023 Eosinophils/100 WBC (Bld) 0.0 % . [facility] Erythrocyte distribution wid th Auto (RBC) [Ratio]Ordered By: Jacques East on 02-14-2023 Erythrocyte distribution width (RBC) [Ratio] 14.6 % 11.9-15.3 [facility] Glucose [Mass/volume] in Ser um or PlasmaOrdered By: Jacques Chirinosr on 02-14-2023 Glucose [Mass/Vol] 136 mg/dL 70-100 [facility] Comment on above: ADA recommended refe rence rangeRandom Glucose Reference Range is dependent on time and content of last meal. Glucose of more than 200 mg/dL in a nonstressed, ambulatory subject supports the diagnosis of Diabetes Mellitus. Hematocrit Auto (Bld) [Volum e fraction]Ordered By: Jacques East on 02-14-2023 Hematocrit (Bld) [Volume fraction] 44.5 % 34.0-46.4 [facility] Hemoglobin [Mass/volume] in BloodOrdered By: Jacques Chirinosr on 02-14-2023 Hemoglobin (Bld) [Mass/Vol] 15.1 g/dL 11.8-15.4 [facility] Leukocytes [#/volume] correc elliot for nucleated erythrocytes in Blood by Automated counOrdered By: Jacques East on 02-14-2023 WBC corrected for nucl RBC Auto (Bld) [#/Vol] 12.7 10*3/uL 3.8-11.6 [facility] Lymphocytes Auto (Bld) [#/Vo l]Ordered By: Obaydah Daromar on 02-14-2023 Lymphocytes (Bld) [#/Vol] 1.0 10*3/uL 1.00-4.8 [facility] Lymphocytes/100 WBC Auto (Bl d)Ordered By: Obaydah Daromar on 02-14-2023 Lymphocytes/100 WBC (Bld) 7.6 % . [facility] MCH Auto (RBC) [Entitic mass ]Ordered By: Obaydah Daromar on 02-14-2023 MCH (RBC) [Entitic mass] 30.6 pg 24.7-34.3 [facility] MCHC Auto (RBC) [Mass/Vol]Or dered By: Obaydah Daromar on 02-14-2023 MCHC (RBC) [Mass/Vol] 33.9 g/dL 32.0-35.0 [facility] MCV Auto (RBC) [Entitic vol] Ordered By: Obaydah Daromar on 02-14-2023 MCV (RBC) [Entitic vol] 90.4 fL 80-100 [facility] Monocytes Auto (Bld) [#/Vol] Ordered By: Obaydah Daromar on 02-14-2023 Monocytes (Bld) [#/Vol] 0.6 10*3/uL 0.0-0.8 [facility] Monocytes/100 WBC Auto (Bld) Ordered By: Obaydah Daromar on 02-14-2023 Monocytes/100 WBC (Bld) 4.7 % . [facility] Neutrophils Auto (Bld) [#/Vo l]Ordered By: Obaydah Daromar on 02-14-2023 Neutrophils (Bld) [#/Vol] 11.1 10*3/uL 1.8-7.7 [facility] Neutrophils/100 WBC Auto (Bl d)Ordered By: Obaydah Daromar on 02-14-2023 Neutrophils/100 WBC (Bld) 87.6 % . [facility] No Panel InformationOrdered By: Obaydah Daromar on 02-14-2023 Estimated GFR (CKD-EPI) 44.991 mL/Min [facility] Creatinine Clearance (Chem 40.59 [facility] Nucleated erythrocytes [Pres ence] in Blood by Automated countOrdered By: Obpatriciadaenrique Talbotomar on 02-14-2023 Nucleated RBC Auto Ql (Bld) 0.0 /100{WBC} 0-0.5 [facility] Platelet mean volume Auto (B ld) [Entitic vol]Ordered By: Obpatriciadah Antioneomar on 02-14-2023 Platelet mean volume (Bld) [Entitic vol] 8.5 fL 6.3-10.7 [facility] Platelets Auto (Bld) [#/Vol] Ordered By: Obpatriciadaenrique Talbotomar on 02-14-2023 Platelets (Bld) [#/Vol] 220 10*3/uL 150-450 [facility] Potassium [Moles/volume] in Serum or PlasmaOrdered By: Obpatriciadah Daromar on 02-14-2023 Potassium [Moles/Vol] 5.4 mmol/L 3.5-5.1 [facility] RBC Auto (Bld) [#/Vol]Ordere d By: Obpatriciadah Daromar on 02-14-2023 RBC (Bld) [#/Vol] 4.92 10*6/uL 3.60-5.00 [facility] Serum or plasma anion gap de terminationOrdered By: Obpatriciadah Antioneomar on 02-14-2023 Anion gap [Moles/Vol] 12.2 mmol/L 6.0-15.0 [facility] Sodium [Moles/volume] in Ser um or PlasmaOrdered By: Obaydah Daromar on 02-14-2023 Sodium [Moles/Vol] 136 mmol/L 136-145 [facility] Urea nitrogen [Mass/volume] in Serum or PlasmaOrdered By: Obaydah Daromar on 02-14-2023 Urea nitrogen [Mass/Vol] 33 mg/dL 7-25 [facility] WBC Auto (Bld) [#/Vol]Ordere d By: Obaydah Daromar on 02-14-2023 WBC (Bld) [#/Vol] 12.7 10*3/uL 3.8-11.6 [facility] Alanine aminotransferase [En zymatic activity/volume] in Serum or PlasmaOrdered By: Obpatriciadaenrique Talbotomar on 02-13-2023 ALT [Catalytic activity/Vol] 16 U/L 7-52 [facility] Albumin [Mass/volume] in Ser um or Plasma by Bromocresol green (BCG) dye binding methoOrdered By: Obpatriciadaenrique Talbotomar on 02-13-2023 Albumin BCG dye [Mass/Vol] 4.0 g/dL 3.5-5.7 [facility] Alkaline phosphatase [Enzyma tic activity/volume] in Serum or PlasmaOrdered By: Obpatriciadaenrique Talbotomar on 02-13-2023 ALP [Catalytic activity/Vol] 57 U/L 34-104 [facility] Aspartate aminotransferase [ Enzymatic activity/volume] in Serum or PlasmaOrdered By: Obpatriciadah Antioneomar on 02-13-2023 AST [Catalytic activity/Vol] 22 U/L 13-39 [facility] Bilirubin.total [Mass/volume ] in Serum or PlasmaOrdered By: Obpatriciadaenrique Talbotomar on 02-13-2023 Bilirubin [Mass/Vol] 0.6 mg/dL 0.3-1.0 [facility] [place] Globulin Calc (S) [Mass/Vol] Ordered By: Jacques Talbotomar on 02-13-2023 Globulin (S) [Mass/Vol] 2.5 g/dL [facility] Magnesium [Mass/volume] in S oralia or PlasmaOrdered By: Obpatriciadah Daromar on 02-13-2023 Magnesium [Mass/Vol] 1.8 mg/dL 1.9-2.7 [facility] Protein [Mass/volume] in Ser um or PlasmaOrdered By: Obpatriciadah Daromar on 02-13-2023 Protein [Mass/Vol] 6.5 g/dL 6.4-8.9 [facility] Serum or plasma albumin/glob ulin mass ratioOrdered By: Obpatriciadaenrique Talbotomar on 02-13-2023 Albumin/Globulin [Mass ratio] 1.6 {ratio} [facility] Activated partial thrombopla stin time (aPTT) in platelet poor plasma by coagulation aOrdered By: Sally Valle on 02-12-2023 aPTT Coag (PPP) [Time] 25.6 s 25.1-36.5 [facility] Comment on above: A hematocrit value g reater than 55% may lead to inaccurate results in coagulation testing. Patients having hematocrit values >55% require a special collection tube for coagulation studies. Please contact the laboratory at [phone] for redraw instructions. Automated erythrocytes count in urine sediment (number/area)Ordered By: Jacques East on 02-12-2023 RBC Auto (Urine sed) [#/Area] 1-2 [HPF] 0-4 [facility] Automated leukocytes count i n urine sediment (number/area)Ordered By: Jacques East on 02-12-2023 WBC Auto (Urine sed) [#/Area] 3-4 [HPF] 0-4 [facility] Bilirubin Test strip Ql (U)O rdered By: Jacques East on 02-12-2023 Bilirubin Ql (U) Negative Negative [facility] Color Auto (U)Ordered By: Glenroy East on 02-12-2023 Color (U) Yellow Yellow [facility] Gram stain for investigation of transfusion reactionOrdered By: Jacques East on 02-12-2023 Microscopic observation Gram stain Nom (Unsp spec) [facility] Microscopic observation Gram stain Nom (Unsp spec) 2 Days [facility] INR in Platelet poor plasma by Coagulation assayOrdered By: Sally Valle on 02-12-2023 INR Coag (PPP) [Relative time] 0.9 {INR} [facility] Comment on above: INR Therapeutic [...] 02-12-2023 Ketones (U) [Mass/Vol] Negative Negative [facility] - UrinalysisOrder ed By: Jacques East on 02-12-2023 Hyaline casts LM Ql (Urine sed) 0-8 [LPF] 0-8 [facility] Nitrite Test strip Ql (U)Ord ered By: Jacques East on 02-12-2023 Nitrite Ql (U) Negative Negative [facility] Protein Auto test strip (U) [Mass/Vol]Ordered By: Jacques East on 02-12-2023 Protein (U) [Mass/Vol] Negative Negative [facility] Prothrombin time (PT)Ordered By: Sally Valle on 02-12-2023 PT Coag (PPP) [Time] 10.9 s 9.0-12.9 [facility] [place] Comment on above: A hematocrit value g reater than 55% may lead to inaccurate results in coagulation testing. Patients having hematocrit values >55% require a special collection tube for coagulation studies. Please contact the laboratory at [phone] for redraw instructions. Specific gravity Auto test s trip (U) [Rel density]Ordered By: Jacques East on 02-12-2023 Specific gravity (U) [Rel density] 1.017 1.001-1.03 0 [facility] Squamous epithelial cells de tection in urine sediment by light microscopyOrdered By: Jacques East on 02-12-2023 Epithelial cells.squamous LM Ql (Urine sed) 0-1 [HPF] 0-2 [facility] Troponin I.cardiac [Mass/vol ume] in Serum or Plasma by Detection limit <= 0.01 ng/Ordered By: Sally Valle on 02-12-2023 Troponin I.cardiac DL <= 0.01 ng/mL [Mass/Vol] 43.8 pg/mL 0.0-15.0 [facility] Urine bacteria detection by automated methodOrdered By: Jacques East on 02-12-2023 Bacteria Auto Ql (U) None seen None Seen [facility] Urine clarity by refractomet ry automatedOrdered By: Jacques East on 02-12-2023 Clarity Refractometry automated (U) Clear Clear [facility] Urine glucose measurement by automated test strip (mass/volume)Ordered By: Jacques East on 02-12-2023 Glucose Auto test strip (U) [Mass/Vol] Normal mg/dL Normal [facility] Urine hemoglobin detection b y automated test stripOrdered By: Jacques East on 02-12-2023 Hemoglobin Auto test strip Ql (U) Negative Negative [facility] Urine leukocyte esterase det ection by automated test stripOrdered By: Jacques East on 02-12-2023 Leukocyte esterase Auto test strip Ql (U) 1+ Negative [facility] Urobilinogen Auto test strip (U) [Mass/Vol]Ordered By: Jacques East on 02-12-2023 Urobilinogen (U) [Mass/Vol] Normal mg/dL Normal [facility] pH Auto test strip (U)Ordere d By: Jacques East on 02-12-2023 pH (U) 5.0 [pH] 5.0-9.0 [facility] CHEMISTRYOrdered By: SYSTEM SYSTEM on 02-10-2023 [...] 39 pg/mL Normal 5 - 80 pg/mL [facility] COAGULATIONOrdered By: Veronica Guidry on 02-10-2023 aPTT Coag (PPP) [Time] 29.2 s Normal 25.1 - 36.5 second(s) [facility] Comment on above: Interpretive Data: P yoel 15 days - 4 weeks 1 - [...] the same coagulation reagent and instrumentation as [facility]. Currently there are no coagulation studies available worldwide for children to 14 days, and no normal ranges. Heparin therapeutic range (represented by Anti-Factor Xa activity of 0.2 - 0.4 U/mL) corresponds to PTT of 56.6 - 109.0 sec. INR Coag (PPP) [Relative time] 1.0 {INR} Invalid Interpretation Code [facility] Comment on above: Interpretive Data: I NR results are specifically intended to assess patients stabilized on long-term Anticoagulation therapy suggested INR s Less Intensive Anticoagulation 2.0 3.0 Conventional Range 3.0 4.5 PT Coag (PPP) [Time] 11.6 s Normal 9.4 - 1 2.5 second(s) [facility] Comment on above: Interpretive [...] the same coagulation reagent and instrumentation as [facility]. Currently there are no coagulation studies available [...] 70.6 % Normal 36.0 - 75.0 % FT HemeAutoSS Neutrophils/Leukocytes Auto (Bld) [Pure # fraction] [...] 30.1 pg Normal 27.0 - 34.0 pg [facility] HemeAutoSS MCHC (RBC) [Mass/Vol] 33.7 g/dL Normal [...] 9.4 E9/L Normal 4.0 - 11.0 E9/L [facility] HemeAutoSS MICRO OTHER TESTSOrdered By: Trudy Guidry on 02-10-2023 Influenzae A Ag Negative (02/10/23 3:25 PM) Normal Negative [facility] Man Sero Influenzae B Ag Negative 1 (02/10/23 3:25 PM) Normal Negative [facility] Man Sero Comment on above: Interpretive Data: [...] POS Ctl Pass (02/10/23 3:25 PM) Normal [facility] Man Sero SARS-CoV+SARS-CoV-2 (COVID-19) Ag IA.rapid Ql (Resp) Not Detected 6 (02/10/23 3:25 PM) Normal Not Detected [facility] Man Sero Comment on above: Interpretive Data: [employer] young [employer] Veritor System for Rapid Detection of SARS-CoV-2 [...] 10-26-2022 CNPN Telephone (KIDMMM) ----- DEYSI HERNANDEZ ([id number]) 1960 F Date Time Provider Department 10/26/22 [...] question. I will also send her a MeMed message encouraging communicate via MeMed if needed. Debra Fishman MD Staff, Department of Kidney Medicine 10/26/22 5:49 PM Allergies As of Date: 10/26/2022 Noted Allergy Reaction CODEINE 09/07/2014 7 - Swelling Date Reviewed: 10/09/2022 Reviewed by: Rosie Harris DO - Fully Assessed Reason for Visit: Patient Question [7714] Prescriptions as of 10/26/2022 - lisinopril (ZESTRIL) [...] Encounter Status:Closed by DEBRA FISHMAN on 10/26/22 [facility] 10-25-2022 CNPN Telephone (AARON) ----- DEYSI HERNANDEZ ([id number]) 1960 F Date Time Provider [facility] your visit today, we recorded the following information about you: Linn Solis Ma 10/25/2022 12:36 PM Signed Patient called the office very upset because today at here appointment with Kidney Medicine she was seen by another provider and it wasn't her kidney doctor. She would like Dr. Fishman call her back at [phone] because she has lots of questions that [...] Fully Assessed Reason for Visit: Patient Question [5864] Prescriptions as of 10/25/2022 - lisinopril (ZESTRIL) [...] Status:Closed by LINN SOLIS MA on 10/25/22 [facility] Lizbet 10-11-2022 CNPN Telephone (WIQ) ----- DEYSI HERNANDEZ ([id number]) 1960 F Date Time Provider Department 10/11/22 CATHIE MOORE During your visit today, we recorded the following information about you: Cathie Moore, [facility] 10/11/2022 12:57 PM Signed Smoking Cessation Navigation Outcome of contact: Left Message Comments: A voicemail has been left for this patient regarding Tobacco Cessation support options. If this patient has any further questions they can email us at or call us at [phone]. [employer] Sales Supervisor/Smoking Cessation Navigator: [facility] Allergies As of Date: 10/11/2022 Noted Allergy [...] Status:Closed by CATHIE MOORE on 10/11/22 Normal [facility] Sami 10-09-2022 MAXWELLOV Office Visit (ELPIDIO ) ----- DEYSI HERNANDEZ ([id number]) 1960 F Date Time Provider Department 10/09/22 2:00 PM GURMEET OJEDA During your visit today, we recorded the following information about you: Temperature Pulse Blood pressure Weight 97.5 degrees 60/minute 91/60 71.3 kg Height 1.575 m Rosie Harris DO 10/09/2022 5:08 PM Signed [facility] NEPHROLOGY AND HYPERTENSION [facility] SERVICE DATE: 10/09/2022 [...] CKD, ESRD, hearing loss. 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 Normal [facility] URINALYSIS, REFLEX MICROSCOP ICon 10-09-2022 Bacteria LM.HPF (Urine sed) [#/Area] Few Abnormal None Seen [facility] Comment on above: Order Comment: Speci men Type: URINE SPECIMEN Ordering Facility: [facility] Address: [address] Performed By: #### L [id number] #### [facility] CLIA [id number] [address] [place] [address] [place] Bilirubin Ql (U) Negative Normal Negative [facility] Comment on above: Order Comment: Speci men Type: URINE SPECIMEN Ordering Facility: [facility] Address: [address] [place], [place] [address] Performed By: #### L [id number] #### [facility] CLIA [id number] [address] [place] [address] [place] Clarity (Unsp spec) Cloudy Abnormal Clear [facility] Comment on above: Order Comment: Speci men Type: URINE SPECIMEN Ordering Facility: [facility] Address: [address] [place], [place] [address] Performed By: #### L [id number] #### [facility] CLIA [id number] [address] [place] [address] [place] Color (U) Light Yellow Normal Yellow [facility] Comment on above: Order Comment: Speci men Type: URINE SPECIMEN Ordering Facility: [facility] Address: [address] Performed By: #### L [id number] #### [facility] CLIA [id number] [address] [place] [address] [place] Epithelial cells LM.HPF (Urine sed) [#/Area] Few Normal [facility] Comment on above: Order Comment: Speci men Type: URINE SPECIMEN Ordering Facility: [facility] Address: [address] Performed By: #### L [id number] #### [facility] CLIA [id number] [address] [place] [address] [place] Glucose Test strip (U) [Mass/Vol] Negative Normal Trace, Negative [facility] Comment on above: Order Comment: Speci men Type: URINE SPECIMEN Ordering Facility: [facility] Address: [address] [place] [address] Performed By: #### L [id number] #### [facility] CLIA [id number] [address] [place] [address] [place] Hemoglobin Ql (U) Trace Normal Negative, Trace [facility] Comment on above: Order Comment: Speci men Type: URINE SPECIMEN Ordering Facility: [facility] Address: [address] [place] [address] Performed By: #### L [id number] #### [facility] CLIA [id number] [address] [place] [address] [place] Ketones Ql (U) Negative Normal Negative, Trace [facility] Comment on above: Order Comment: Speci men Type: URINE SPECIMEN Ordering Facility: [facility] Address: [address] [place], [place] [address] Performed By: #### L [id number] #### [facility] CLIA [id number] [address] [place] [address] [place] Leukocyte esterase Test strip Ql (U) 250 Bonnie/uL Abnormal Negative, 25 Bonnie/uL [facility] Comment on above: Order Comment: Speci men Type: URINE SPECIMEN Ordering Facility: [facility] Address: [address] [place] [address] Performed By: #### L [id number] #### [facility] CLIA [id number] [address] [place] [address] [place] Nitrite Ql (U) 2+ Abnormal Negative [facility] Comment on above: Order Comment: Speci men Type: URINE SPECIMEN Ordering Facility: [facility] Address: [address] Performed By: #### L [id number] #### [facility] CLIA [id number] [address] [place] [address] [place] pH (U) 5.5 [pH] Normal 5.0-8.0 [facility] Comment on above: Order Comment: Speci men Type: URINE SPECIMEN Ordering Facility: [facility] Address: [address] [place] [address] Performed By: #### L [id number] #### [facility] CLIA [id number] [address] [place] [address] [place] Protein (U) [Mass/Vol] Negative Normal Trace , Negative [facility] Comment on above: Order Comment: Speci men Type: URINE SPECIMEN Ordering Facility: [facility] Address: [address] [place] [address] Performed By: #### L [id number] #### [facility] CLIA [id number] [address] [place] [address] [place] RBC LM.HPF (Urine sed) [#/Area] 0-3 /HPF Normal 0-3 /HPF [facility] Comment on above: Order Comment: Speci men Type: URINE SPECIMEN Ordering Facility: [facility] Address: [address] [place] [address] Performed By: #### L [id number] #### [facility] CLIA [id number] [address] [place] [address] [place] Specific gravity (U) [Rel density] 1.015 Normal 1.005-1.03 0 [facility] Comment on above: Order Comment: Speci men Type: URINE SPECIMEN Ordering Facility: [facility] Address: [address] [place] [address] Performed By: #### L [id number] #### [facility] CLIA [id number] [address] [place] [address] [place] Urobilinogen Ql (U) Negative Normal Negative [facility] Comment on above: Order Comment: Speci men Type: URINE SPECIMEN Ordering Facility: [facility] Address: [address] [place] [address] Performed By: #### L [id number] #### [facility] CLIA [id number] [address] [place] [address] [place] WBC LM.HPF (Urine sed) [#/Area] /[HPF] Abnormal 0-5 /HPF [facility] Comment on above: Order Comment: Speci men Type: URINE SPECIMEN Ordering Facility: [facility] Address: [address] [place] [address] Performed By: #### L [id number] #### [facility] CLIA [id number] [address] [place] [address] OF [facility] Bacteria LM.HPF (Urine sed) [#/Area] Few Abnormal None Seen /HPF [facility] Bilirubin Ql (U) Negative Negative [facility] Clarity (Unsp spec) Cloudy Abnormal Clear [facility] Color (U) Light Yellow Yellow [facility] Epithelial cells LM.HPF (Urine sed) [#/Area] Few [facility] Glucose Test strip (U) [Mass/Vol] Negative Trace, Negative [facility] Hemoglobin Ql (U) Trace Negative, Trace [facility] Ketones Ql (U) Negative Negative, Trace [facility] Leukocyte esterase Test strip Ql (U) 250 Bonnie/uL Abnormal Negative, 25 Bonnie/uL [facility] Nitrite Ql (U) 2+ Abnormal Negative [facility] pH (U) 5.5 [pH] 5.0 - 8.0 [facility] Protein (U) [Mass/Vol] Negative Trace , Negative [facility] RBC LM.HPF (Urine sed) [#/Area] 0-3 /HPF 0-3 /HPF [facility] Specific gravity (U) [Rel density] 1.015 1.005 - 1.030 [facility] Urobilinogen Ql (U) Negative Negative [facility] WBC LM.HPF (Urine sed) [#/Area] /[HPF] Abnormal 0-5 /HPF [facility] 25(OH)D3 SerPl-mCncon 2022 25-hydroxyvitamin D3 [Mass/Vol] 34.5 ng/mL Normal 31.0-80.0 [facility] Comment on above: Order Comment: Carmen juarez Type: BLOOD SPECIMEN Ordering Facility: [facility] Address: [address] [place] [address] Result Comment: Clas sification of 25 [place] Vitamin D status: Deficiency/Insufficiency: < or = 30 ng/ml. Sufficiency/Optimal Levels: 31-80 ng/mL Toxicity: > 100 ng/mL. Test performed by chemiluminescent immunoassay. Performed By: #### 1 989-3 #### [facility] CLIA [id number] [address] [place] [address] IMMUNOFIXATION SCREEN, SERUM on 08-23-2022 MPA RESULT No M protein is identified. Normal No M protein is identified . [facility] Comment on above: Order Comment: Carmen juarez Type: BLOOD SPECIMEN Ordering Facility: [facility] Address: [address] [place] [address] Performed By: #### I FESC #### [facility] CLIA [id number] [address] [place] [address] STAFF REVIEW (MPA) Reviewed by Cortes Alfredo MD, Ph.D ([id number]) Normal [facility] Comment on above: Order Comment: Carmen juarez Type: BLOOD SPECIMEN Ordering Facility: [facility] Address: [address] [place], [place] [address] Performed By: #### I FESC #### [facility] CLIA [id number] [address] [place] [address] OF [facility] IMMUNOGLOBULINS GAMon 2022 IgA [Mass/Vol] 218 mg/dL Normal 70-400 [facility] Comment on above: Order Comment: Carmen juarez Type: BLOOD SPECIMEN Ordering Facility: [facility] Address: [address] [place] [address] Performed By: #### S ERIMM #### [facility] CLIA [id number] [address] [place] [address] [place] IgG [Mass/Vol] 775 mg/dL Normal 700-1600 [facility] Comment on above: Order Comment: Speci men Type: BLOOD SPECIMEN Ordering Facility: [facility] Address: [address] [place] [address] Performed By: #### S ERIMM #### [facility] CLIA [id number] [address] [place] [address] [place] IgM [Mass/Vol] 129 mg/dL Normal 40-230 [facility] Comment on above: Order Comment: Speci men Type: BLOOD SPECIMEN Ordering Facility: [facility] Address: [address] [place] [address] Performed By: #### S ERIMM #### [facility] CLIA [id number] [address] [place] [address] [place] KAPPA/THAO,FREE,SERon 2022 Immunoglobulin light chains.kappa.free (S) [Mass/Vol] 26.1 mg/L High 3.3-19.4 [facility] Comment on above: Order Comment: Speci larry Type: BLOOD SPECIMEN Ordering Facility: [facility] Address: [address] [place] [address] Result Comment: Rare ly, increased serum free light chains levels may not be detected or accurately quantified due to prozone phenomenon or in high viscosity samples using this immunoturbidimetric assay. Correlation with other laboratory results and clinical findings is recommended. The [place] Free Light Chain was performed using the Binding Site Optilite immunoturbidimetric method. Result obtained with different assay methods or kits cannot be used interchangeably. Performed By: #### K LFRS #### [facility] CLIA [id number] [address] [place] [address] [place] Immunoglobulin light chains.kappa/Immunoglo bulin light chains.lambda (S) [Mass ratio] 1.01 Normal 0.26-1.65 [facility] Comment on above: Order Comment: Speci men Type: BLOOD SPECIMEN Ordering Facility: [facility] Address: [address] [address] Performed By: #### K LFRS #### [facility] CLIA [id number] [address] [place] [address] [place] Immunoglobulin light chains.lambda.free [Mass/Vol] 25.9 mg/L Normal 5.7-26.3 [facility] Comment on above: Order Comment: Speci men Type: BLOOD SPECIMEN Ordering Facility: [facility] Address: [address] [place] [place] [address] Result Comment: Rare ly, increased serum free [...] By: #### K LFRS #### [facility] CLIA [id number] [address] [place] [address] [place] Renal function 2000 panelon 08-23-2022 Albumin [Mass/Vol] 4.3 g/dL Normal 3.9-4.9 [facility] Comment on above: Order Comment: Speci men Type: BLOOD SPECIMEN Ordering Facility: [facility] Address: [address] Performed By: #### 2 4362-6 #### [facility] CLIA [id number] [address] [place] [address] [place] Anion gap [Moles/Vol] 9 mmol/L Normal 9-18 [facility] Comment on above: Order Comment: Speci men Type: BLOOD SPECIMEN Ordering Facility: [facility] Address: [address] [place] [place] [address] Performed By: #### 2 4362-6 #### [facility] CLIA [id number] [address] [place] [address] [place] Calcium [Mass/Vol] 9.9 mg/dL Normal 8.5-10.2 [facility] Comment on above: Order Comment: Speci men Type: BLOOD SPECIMEN Ordering Facility: [facility] Address: [address] Performed By: #### 2 4362-6 #### [facility] CLIA [id number] [address] [place] [address] [place] Chloride [Moles/Vol] 105 mmol/L Normal 97-105 [facility] Comment on above: Order Comment: Speci men Type: BLOOD SPECIMEN Ordering Facility: [facility] Address: [address] Performed By: #### 2 4362-6 #### [facility] CLIA [id number] [address] [place] [address] [place] CO2 [Moles/Vol] 25 mmol/L Normal 22-30 [facility] Comment on above: Order Comment: Speci men Type: BLOOD SPECIMEN Ordering Facility: [facility] Address: [address] Performed By: #### 2 4362-6 #### [facility] CLIA [id number] [address] [place] [address] [place] Creatinine [Mass/Vol] 1.42 mg/dL High 0.58-0.96 [facility] Comment on above: Order Comment: Speci men Type: BLOOD SPECIMEN Ordering Facility: [facility] Address: [address] Performed By: #### 2 4362-6 #### [facility] CLIA [id number] [address] [place] [address] [place] ESTIMATED GLOMERULAR FILTRATION RATE 42 mL/min/1.73m??? Low >=60 [facility] Comment on above: Order Comment: Speci men Type: BLOOD SPECIMEN Ordering Facility: [facility] Address: [address] Result Comment: Jody mated Glomerular Filtration [...] 2 4362-6 #### [facility] CLIA [id number] [address] [place] [address] [place] Glucose [Mass/Vol] 70 mg/dL Low 74-99 [facility] Comment on above: Order Comment: Carmen [facility] Type: BLOOD SPECIMEN Ordering Facility: [facility] Address: [address] [place] [address] Result Comment: The [place] Diabetes Association (ADA) provides guidance for cutoff [...] Standards of Medical Care in Diabetes 2016, [place] [employer]. Diabetes Care. 2016.39(Suppl 1). Performed By: #### 2 4362-6 #### [facility] CLIA [id number] [address] [place] [address] [place] Phosphate [Mass/Vol] 2.5 mg/dL Low 2.7-4.8 [facility] Comment on above: Order Comment: Carmen juarez Type: BLOOD SPECIMEN Ordering Facility: [facility] Address: [place] [address] Performed By: #### 2 4362-6 #### [facility] CLIA [id number] [address] [place] [address] [place] Potassium [Moles/Vol] 4.8 mmol/L Normal 3.7-5.1 [facility] Comment on above: Order Comment: Speci men Type: BLOOD SPECIMEN Ordering Facility: [facility] Address: [address] [place] [address] Performed By: #### 2 4362-6 #### [facility] CLIA [id number] [address] [facility] [place], [place] [address] [place] [address] STATES OF [facility] Sodium [Moles/Vol] 139 mmol/L Normal 136-144 [facility]ital Comment on above: Order Comment: Speci men Type: BLOOD SPECIMEN Ordering Facility: [facility] Address: [address] [place] [place] [address] Performed By: #### 2 4362-6 #### [facility] CLIA [id number] [address] [place] Urea nitrogen [Mass/Vol] 18 mg/dL Normal 7-21 [facility] Comment on above: Order Comment: Speci men Type: BLOOD SPECIMEN Ordering Facility: [facility] Address: [address] [address] Performed By: #### 2 4362-6 #### [facility] CLIA [id number] [address] [place] US KIDNEY/BLADDERon 08-24-19 [...] residual bladder volume 4. Right renal cyst [employer] Manager: ERICK Transcribe Date/Time: Aug 28 2022 8:25A Dictated by : ALEAH QUINN MD This examination was interpreted and the report reviewed and electronically signed by: ALEAH QUINN MD on Aug 28 2022 8:28AM EST [id number] [facility] 08-09-2022 [facility] Office Visit (KIDMMPreston ) ----- DEYSI HERNANDEZ ([id number]) 1960 F Date Time Provider Department 08/09/22 3:00 PM GURMEET OJEDA During your visit today, we recorded the following information about you: Temperature Pulse Blood pressure Weight 97.7 degrees 65/minute 98/64 72.5 kg Height 1.575 m Debra Fishman MD 08/09/2022 7:02 PM Signed [facility] NEPHROLOGY AND HYPERTENSION [facility] SERVICE DATE: 08/09/2022 [...] CKD, ESRD, hearing loss. She is a long-term smoker, currently 0.75 pack per day but [...] Normal mo (more content not included)... Normal [facility] URINALYSIS, REFLEX MICROSCOP ICon 08-09-2022 Bilirubin Ql (U) Negative Normal Negative Jing bazzi [facility] Comment on above: Order Comment: Speci men Type: URINE SPECIMEN Ordering Facility: [facility] Address: [address] [place] [address] Performed By: #### L [id number] #### [facility] CLIA [id number] [address] [place] [address] [place] Clarity (Unsp spec) Clear Normal Clear [facility] Comment on above: Order Comment: Speci men Type: URINE SPECIMEN Ordering Facility: [facility] Address: [address] Performed By: #### L [id number] #### [facility] CLIA [id number] [address] [place] [address] [place] Color (U) Light Yellow Normal Yellow [facility] Comment on above: Order Comment: Speci men Type: URINE SPECIMEN Ordering Facility: [facility] Address: [address] [place] [address] Performed By: #### L [id number] #### [facility] CLIA [id number] [address] [place] [address] [place] Glucose Test strip (U) [Mass/Vol] Negative Normal Trace, Negative [facility] Comment on above: Order Comment: Speci men Type: URINE SPECIMEN Ordering Facility: [facility] Address: [address] [place] [address] Performed By: #### L [id number] #### [facility] CLIA [id number] [address] [place] [address] [place] Hemoglobin Ql (U) Negative Normal Negative, Trace [facility] Comment on above: Order Comment: Speci men Type: URINE SPECIMEN Ordering Facility: [facility] Address: [address] [place] [address] Performed By: #### L [id number] #### [facility] CLIA [id number] [address] [place] [address] [place] Ketones Ql (U) Negative Normal Negative, Trace [facility] Comment on above: Order Comment: Speci men Type: URINE SPECIMEN Ordering Facility: [facility] Address: [address] Performed By: #### L [id number] #### [facility] CLIA [id number] [address] [place] [address] [place] Leukocyte esterase Test strip Ql (U) 75 Bonnie/uL Abnormal Negative, 25 Bonnie/uL [facility] Comment on above: Order Comment: Speci men Type: URINE SPECIMEN Ordering Facility: [facility] Address: [address] [address] Performed By: #### L [id number] #### [facility] CLIA [id number] [address] [place] [address] [place] Nitrite Ql (U) Negative Normal Negative [facility] Comment on above: Order Comment: Speci men Type: URINE SPECIMEN Ordering Facility: [facility] Address: [address] [place] [address] Performed By: #### L [id number] #### [facility] CLIA [id number] [address] [place] [address] [place] pH (U) 6.0 [pH] Normal 5.0-8.0 [facility] Comment on above: Order Comment: Speci men Type: URINE SPECIMEN Ordering Facility: [facility] Address: [address] [place], [place] [id number] Performed By: #### L [id number] #### [facility] CLIA [id number] [address] [place] [address] [place] Protein (U) [Mass/Vol] Negative Normal Trace , Negative [facility] Comment on above: Order Comment: Speci men Type: URINE SPECIMEN Ordering Facility: [facility] Address: [address] [place], [place] [id number] Performed By: #### L [id number] #### [facility] CLIA [id number] [address] [place] [address] [place] Specific gravity (U) [Rel density] 1.009 Normal 1.005-1.03 0 [facility] Comment on above: Order Comment: Speci men Type: URINE SPECIMEN Ordering Facility: [facility] Address: [address] [address] Performed By: #### L [id number] #### [facility] CLIA [id number] [facility] [place] [address] [place] Urobilinogen Ql (U) Negative Normal Negative [facility] Comment on above: Order Comment: Speci men Type: URINE SPECIMEN Ordering Facility: [facility] Address: [address] [address] Performed By: #### L [id number] #### [facility] CLIA [id number] [address] [place] [address] [place] Bilirubin Ql (U) Negative Negative [facility] Clarity (Unsp spec) Clear Clear [facility] Color (U) Light Yellow Yellow [facility] Glucose Test strip (U) [Mass/Vol] Negative Trace, Negative [facility] Hemoglobin Ql (U) Negative Negative, Trace [facility] Ketones Ql (U) Negative Negative, Trace [facility] Leukocyte esterase Test strip Ql (U) 75 Bonnie/uL Abnormal Negative, 25 Bonnie/uL [facility] Nitrite Ql (U) Negative Negative [facility] pH (U) 6.0 [pH] 5.0 - 8.0 [facility] Protein (U) [Mass/Vol] Negative Trace , Negative [facility] Specific gravity (U) [Rel density] 1.009 1.005 - 1.030 [facility] Urobilinogen Ql (U) Negative Negative [facility] LIPID PROFILEon 06-12-2022 CHOL-HDL RATIO NORM SEE BELOW Normal [facility] Comment on above: Result Comment: 3.3 - 4.4 LOW RISK 4.4 - 7.1 AVERAGE RISK 7.1 - 11.0 MODERATE RISK >11.0 HIGH RISK Performed By: #### L IPID, BMP #### [facility] [address] [address] [address] Moreno Amato Cholesterol [Mass/Vol] 178 mg/dL Normal <=200 [facility] [place] Comment on above: Performed By: #### L IPID, BMP #### [facility] [address] [address] [address] Moreno Amato Cholesterol in HDL [Mass/Vol] 39 mg/dL Critically low 40-60 [facility] Comment on above: Performed By: #### L IPID, BMP #### [facility] [address] [address] [address] Moreno Amato Cholesterol in LDL [Mass/Vol] 92.0 mg/dL Normal [facility] Comment on above: Performed By: #### L IPID, BMP #### [facility] [address] [address] [address] Moreno Amato Cholesterol.total/Chol esterol in HDL [Mass ratio] 4.6 {ratio} Normal [facility] Comment on above: Performed By: #### L IPID, BMP #### [facility] [address] [address] [address] Moreno Amato HDL NORMAL > or = 60 mg/dl - LO W CARDIOVASCULAR RISK <40 mg/dl - HIGH CARDIOVASCULAR RISK Normal [facility] Comment on above: Performed By: #### L IPID, BMP #### [facility] [address] [address] [address] Moreno Amato LDL CALC NORMAL SEE BELOW Normal [facility] Comment on above: Result Comment: <100 mg/dl OPTIMAL 100 - 129 mg/dl NEAR OR ABOVE OPTIMAL 130 - 159 mg/dl BORDERLINE HIGH 160 - 189 mg/dl HIGH >190 mg/dl VERY HIGH Performed By: #### L IPID, BMP #### [facility] [address] [address] [address] Moreno Amato Triglyceride [Mass/Vol] 235 mg/dL Critically high <=150 [facility] Comment on above: Performed By: #### L IPID, BMP #### [facility] [address] [address] [address] Moreno Amato VLDL CALC 47.0 mg/dL Normal [facility] Comment on above: Performed By: #### L IPID, BMP #### [facility] [address] [address] [address] Moreno Amato PROF CHEM 8 (BAS METB)on Anion gap [Moles/Vol] 10.7 mmol/L Normal [facility] Comment on above: Performed By: #### L IPID, BMP #### [facility] [address] [place] [address] Dr. Moreno Amato Calcium [Mass/Vol] 9.6 mg/dL Normal 8.5-10.1 [facility] Comment on above: Performed By: #### L IPID, BMP #### [facility] [address] [address] [address] Moreno Amato Chloride [Moles/Vol] 104 mmol/L Normal 98-107 [facility] Comment on above: Performed By: #### L IPID, BMP #### [facility] [address] [place] [address] Dr. Moreno Amato CO2 [Moles/Vol] 31.6 mmol/L Normal 21.0-32.0 [facility] [place] [facility] Comment on above: Performed By: #### L IPID, BMP #### [facility] [address] [address] [address] Moreno Amato Creatinine [Mass/Vol] 1.58 mg/dL Critically high 0.55-1.02 [facility] Comment on above: Performed By: #### L IPID, BMP #### [facility] [address] [address] [address] Moreno Amato EGFR-AF TOGOLESE 40 mL/min/1.73m2 Critically low >=60 [facility] Comment on above: Performed By: #### L IPID, BMP #### [facility] [address] [address] [address] Moreno Amato EGFR-NON AF TOGOLESE 33 mL/min/1.73m2 Critically low >=60 [facility] Comment on above: Performed By: #### L IPID, BMP #### [facility] [address] [address] [address] Moreno Amato Glucose [Mass/Vol] 79 mg/dL Normal 74-106 [facility] Comment on above: Performed By: #### L IPID, BMP #### [facility] [address] [place] [address] Dr. Moreno Amato Potassium [Moles/Vol] 4.3 mmol/L Normal 3.5-5.1 [facility] Comment on above: Performed By: #### L IPID, BMP #### [facility] [address] [place] [address] Dr. Moreno Amato Sodium [Moles/Vol] 142 mmol/L Normal 136-145 [facility] Comment on above: Performed By: #### L IPID, BMP #### [facility] [address] [place] [address] Dr. Moreno Amato Urea nitrogen [Mass/Vol] 21.0 mg/dL Critically high 7.0-18.0 [facility] Comment on above: Performed By: #### L IPID, BMP #### [facility] [address] [place] [address] Dr. Moreno Amato Urea nitrogen/Creatinine [Mass ratio] 13.3 mg/mg Normal [facility] Comment on above: Performed By: #### L IPID, BMP #### [facility] [address] [place] [address] Dr. Moreno Amato URINE T PROTEIN CREAT RATIOo n 06-12-2022 Protein (U) [Mass/Vol] 8.8 mg/dL Normal <=12.0 [facility] Comment on above: Performed By: #### A MY, CMP, LIPA #### [facility] [address] [place] [address] Dr. Moreno Amato UR PROT CREAT RAT 0.12 Normal [facility] Comment on above: Performed By: #### A MY, CMP, LIPA #### [facility] [address] [place] [address] Dr. Moreno Amato URINE CREAT 70.82 mg/dL Normal 20.00-300. 00 [facility] Comment on above: Performed By: #### A MY, CMP, LIPA #### [facility] [address] [place] [address] Dr. Moreno Amato HEMOGLOBINon 04-30-2022 Hemoglobin (Bld) [Mass/Vol] 15.3 g/dL Normal 12.0-16.0 [facility] Comment on above: Performed By: #### A MY, CMP, LIPA #### [facility] [address] [address] [address] Moreno Amato LIPID PROFILEon 03-27-2022 CHOL-HDL RATIO NORM SEE BELOW Normal [facility] Comment on above: Result Comment: 3.3 - 4.4 LOW RISK 4.4 - 7.1 AVERAGE RISK 7.1 - 11.0 MODERATE RISK >11.0 HIGH RISK Performed By: #### A MY, CMP, LIPA #### [facility] [address] [address] [address] Moreno Amato Cholesterol [Mass/Vol] 217 mg/dL Critically high <=200 [facility] Comment on above: Performed By: #### A MY, CMP, LIPA #### [facility] [address] [address] [address] Moreno Amato Cholesterol in HDL [Mass/Vol] 42 mg/dL Normal 40-60 [facility] Comment on above: Performed By: #### A MY, CMP, LIPA #### [facility] [address] [address] [address] Moreno Amato Cholesterol in LDL [Mass/Vol] 121.6 mg/dL Normal [facility] Comment on above: Performed By: #### A MY, CMP, LIPA #### [facility] [address] [address] [address] Moreno Amato Cholesterol.total/Chol esterol in HDL [Mass ratio] 5.2 {ratio} Normal [facility] Comment on above: Performed By: #### A MY, CMP, LIPA #### [facility] [address] [address] [address] Moreno Amato HDL NORMAL > or = 60 mg/dl - LO W CARDIOVASCULAR RISK <40 mg/dl - HIGH CARDIOVASCULAR RISK Normal [facility] Comment on above: Performed By: #### A MY, CMP, LIPA #### [facility] [address] [address] [address] Moreno Amato LDL CALC NORMAL SEE BELOW Normal [facility] Comment on above: Result Comment: <100 mg/dl OPTIMAL 100 - 129 mg/dl NEAR OR ABOVE OPTIMAL 130 - 159 mg/dl BORDERLINE HIGH 160 - 189 mg/dl HIGH >190 mg/dl VERY HIGH Performed By: #### A MY, CMP, LIPA #### [facility] [address] [address] [address] Moreno Amato Triglyceride [Mass/Vol] 267 mg/dL Critically high <=150 [facility] Comment on above: Performed By: #### A MY, CMP, LIPA #### [facility] [address] [address] [address] Moreno Amato VLDL CALC 53.4 mg/dL Normal [facility] Comment on above: Performed By: #### A MY, CMP, LIPA #### [facility] [address] [address] [address] Moreno Amato PROF CHEM 8 (BAS METB)on Anion gap [Moles/Vol] 11.1 mmol/L Normal [facility] Comment on above: Performed By: #### A MY, CMP, LIPA #### [facility] [address] [address] [address] Moreno Amato Calcium [Mass/Vol] 9.2 mg/dL Normal 8.5-10.1 [facility] Comment on above: Performed By: #### A MY, CMP, LIPA #### [facility] [address] [place] [address] Dr. Moreno Amato Chloride [Moles/Vol] 104 mmol/L Normal 98-107 [facility] Comment on above: Performed By: #### A MY, CMP, LIPA #### [facility] [address] [place] [address] Dr. Moreno Amato CO2 [Moles/Vol] 27.4 mmol/L Normal 21.0-32.0 [facility] [place] [facility] Comment on above: Performed By: #### A MY, CMP, LIPA #### [facility] [address] [address] [address] Moreno Amato Creatinine [Mass/Vol] 1.30 mg/dL Critically high 0.55-1.02 [facility] Comment on above: Performed By: #### A MY, CMP, LIPA #### [facility] [address] [address] [address] Moreno Amato EGFR-AF TOGOLESE 51 mL/min/1.73m2 Critically low >=60 [facility] Comment on above: Performed By: #### A MY, CMP, LIPA #### [facility] [address] [address] [address] Moreno Amato EGFR-NON AF TOGOLESE 42 mL/min/1.73m2 Critically low >=60 [facility] Comment on above: Performed By: #### A MY, CMP, LIPA #### [facility] [address] [address] [address] Moreno Amato Glucose [Mass/Vol] 102 mg/dL Normal 74-106 [facility] Comment on above: Performed By: #### A MY, CMP, LIPA #### [facility] [address] [address] [address] Moreno Amato Potassium [Moles/Vol] 4.5 mmol/L Normal 3.5-5.1 [facility] Comment on above: Performed By: #### A MY, CMP, LIPA #### [facility] [address] [address] [address] Moreno Amato Sodium [Moles/Vol] 138 mmol/L Normal 136-145 [facility] Comment on above: Performed By: #### A MY, CMP, LIPA #### [facility] [address] [address] [address] Moreno Amato Urea nitrogen [Mass/Vol] 23.0 mg/dL Critically high 7.0-18.0 [facility] Comment on above: Performed By: #### A MY, CMP, LIPA #### [facility] [address] [address] [address] Moreno Amato Urea nitrogen/Creatinine [Mass ratio] 17.7 mg/mg Normal [facility] Comment on above: Performed By: #### A MY, CMP, LIPA #### [facility] [address] [address] [address] Moreno Amato SGOTon 03-27-2022 AST [Catalytic activity/Vol] 24 U/L Normal 15-37 [facility] Comment on above: Performed By: #### A MY, CMP, LIPA #### [facility] [address] [address] [address] Moreno Amato SGPTon 03-27-2022 ALT [Catalytic activity/Vol] 20 U/L Normal 14-59 [facility] Comment on above: Performed By: #### A MY, CMP, LIPA #### [facility] [address] [address] [address] Moreno Amato COVID/FLU RT-PCRon SARS-CoV-2 (COVID-19) RNA ELISA+probe Ql (Unsp spec) Negative [facility] Other COVID/FLU RT-PCR Negative [facility] Other Quick Strepon 03-19-2022 S. pyogenes Org specific cx Ql (Throat) Negative [facility] Other Quick Strep [facility] Other Tobacco Screening.on 023 Adult depression screening assessment No [facility] [address] DO Work Phone: Fall risk assessment c) Not medically indicated [facility] 250 DO Work Phone: Tobacco use status [facility] b) No [facility] 250 DO Work Phone: PAP ACOG PANEL 2: 30 to 65on 03-02-2022 . . Normal [facility] Comment on above: Result Comment: Perf ormed at: WB Performed By: #### A MY, CMP, LIPA #### [facility] [address] [address] [address] Moreno Amato Age Gdln ACOG Testing 30-65 Normal [facility] Comment on above: Performed By: #### A MY, CMP, LIPA #### [facility] [address] [place] [address] Dr. Moreno Amato DIAGNOSIS: Comment Normal [facility] Comment on above: Result Comment: NEGA TIVE FOR INTRAEPITHELIAL LESION OR MALIGNANCY. Performed at: WB Performed By: #### A MY, CMP, LIPA #### [facility] [address] [place] [address] Dr. Moreno Amato HPV Aptima Negative Normal Negative [facility] Comment on above: Result Comment: This nucleic acid amplification test detects fourteen high-risk HPV types (16,18,31,33,35,39,45,51,52,56,58,59,66,68) without differentiation. Performed at: =G Performed By: #### A MY, CMP, LIPA #### [facility] [address] [place] [address] Dr. Moreno Amato HPV Genotype Reflex Comment Normal [facility] Comment on above: Result Comment: Crit eria not met, HPV Genotype not performed. Performed at: WB Performed By: #### A MY, CMP, LIPA #### [facility] [address] [place] [address] Dr. Moreno Amato Methodology: Comment Normal [facility] Comment on above: Result Comment: This liquid based ThinPrep(R) pap test was screened with the use of an image guided system. Performed at: WB Performed By: #### A MY, CMP, LIPA #### [facility] [address] [place] [address] Dr. Moreno Amato Note: Comment Normal [facility] Comment on above: Result Comment: The Pap [...] By: #### A MY, CMP, LIPA #### [facility] [address] [place] [address] Dr. Moreno Amato Performed by: Comment Normal [facility] Comment on above: Result Comment: Maria Luisa Chou, Electrical Electronics Engineer (ASCP) Performed at: WB Performed By: #### A MY, CMP, LIPA #### [facility] [address] [place], [place] [address] Dr. Moreno Amato Specimen adequacy: Comment Normal [facility] Comment on above: Result Comment: Sati sfactory for evaluation. Endocervical and/or squamous metaplastic cells (endocervical component) are present. Performed at: WB Performed By: #### A MY, CMP, LIPA #### [facility] [address] [place], [place] [address] Dr. Moreno Amato XR CHEST 2 Von [...] by: AMY ROSS Date: 2022-02-19 22:40 Normal [facility] CARDIAC STRESS/REST INJE CTIONon 01-23-2022 [facility] CARDIAC STRESS/REST INJECTION Patient Name: DEYSI HERNANDEZ STUDY: MYOCARDIAL PERFUSION STRESS TEST WITH LEXISCAN Performing facility: [facility], [address] [place] [address], [address], [place] [address] [facility] Provider: Carlene Beal MD, FACC PCP: Dr. Mariann Thompson Supervising provider: Autumn Guidry RN, INSTRUCTION ASSISTANT PRINCIPAL INDICATION: Chest discomfort Elevated troponin Hyperlipidemia HISTORY: Gender: F; Age: 61 y/o ; Height: 0 cm; Weight: 71.9733145 kg. High Cholesterol; HTN; Chest Pain; Quit smoking <1 year ago. COMPARISON: No comparison. ACCESSION NUMBER(S): [id number]; [id number]; [id number] ORDERING CLINICIAN: MARQUEZ BEAL TECHNIQUE: ONE DAY [...] Electronically signed by: WAQAR MARTINEZ MD Normal [facility] No Panel Informationon 01-23 Normal [facility] 600 DO Work Phone: Tobacco Screening.on 022 Fall risk assessment a) No falls within the last year [facility] 600 DO Work Phone: Tobacco use status CPHS b) No [facility] 600 DO Work Phone: MG MAMM SCREEN 3D NIRMALA CADon 10-30-2021 MG MAMM SCREEN 3D NIRMALA CAD Patient: DEYSI HERNANDEZ Exam Date: 10/30/2021 : 1960 Gender:F Ordering : SHAIKH Ford THOMPSON . Admission #: [id number] Family : Order #: [id number] CLICK HERE TO VIEW EXAM RADIOLOGY REPORT PROCEDURE: MAMMOGRAM SCREENING 3D BILATERAL CAD COMPARISON: MG MAMM NIRMALA SCRN W CAD DIG, 12/05/2012. INDICATIONS: Screening mammography Calculator Name NCI Breast Cancer Risk Assessment Tool 5 Year Breast Cancer Risk 1.00% Lifetime Breast Cancer Risk 5.50% Personal Breast Cancer No Personal Ovarian Cancer No Treatments None Family Cancers None LOCATION: [facility] BREAST COMPOSITION: Scattered areas fibroglandular density. FINDINGS: [...] M.D. on 10/31/2021 at 08:52 Normal [facility] Cardiac Stress Teston 2021 Cardiac Stress Test [address], [place] [address] Exercise Stress Test Patient Name: DEYSI SUNIDELROY Ordering Physician: [id number] Beal MD Study Date: 10/17/2021 Reading Physician: [id number] Goldstein MD, [facility] MRN/PID: [id number] Supervising Physician: [id number] Jaycob Goldstein MD, [facility] Accession/Order#: [id number] Referring Physician: Cyn BEAL Date of : 1960 PCP: Mariann THOMPSON Gender: M Fellow: Height: 162.56 cm Nurse: Jackie Shen RN Weight: 68.95 kg Printer Repair Technician: KYLE BSA: 1.74 m2 Technologist: BMI: 26.09 kg/m2 Additional Staff: Age: 61 years cc report to: Patient Location: cc report to: [id number] Marquez Beal MD Study Type: Cardiac Stress Test Diagnosis/ICD: R07.89-Other chest pain Indication: Chest Pain Atypical Procedure/CPT: Stress Test Interpretation-[id number]; Stress Test Supervision-[id number] Falls Risk: Low: Patient has low risk [...] The adequate level of stress was achieved. [id number] Jaycob Goldstein MD, FACC Electronically signed on 10/23/2021 at 12:29:13 PM Final Normal [facility] Cardiac Stress Test Please click on the link to view the study images [facility] Work Phone: Cardiac Stress Test MP-No rth [place] [facility] 250 DO Work Phone: Creatinine and Glomerular fi ltration rate.predicted panel (S/P/Bld)Ordered By: Marquez Beal on 09-18-2021 Creatinine [Mass/Vol] 1.10 mg/dL 0.44-1.03 [facility] Estimated glomerular filtrat ion rate (GFR) non- AmericanOrdered By: Marquez Beal on 09-18-2021 GFR/1.73 sq M.predicted among non-blacks MDRD (S/P/Bld) [Vol rate/Area] 51 mL/Min [facility] No Panel InformationOrdered By: Marquez Beal on 09-18-2021 Estimated GFR () > 60 mL/Min [facility] Comment on above: GFR estimated refere nce range: According to KDOQI guidelines, <60 ml/min/1.73m2 is sufficient to diagnose a patient with chronic kidney disease. Pharmacy Creatinine Clearance (Chem N/A [facility] No Panel Informationon 09-18 9.8\S\9.8 Normal 8.2-10.[address] [facility] 250 DO Work Phone: Comment on above: PERFORMED BY:[address] [place] [id number] [address] [place], [place] [id number] MEDICAL DIRECTORJERAMY CALDWELL M.D. 25.1\S\25.1 Normal 22.0-30.[address] [facility] 250 DO Work Phone: 100\S\100 Normal 95-[address] [facility] 250 DO Work Phone: 3.9\S\3.9 Normal 3.5-5.[address] [facility] 250 DO Work Phone: 138\S\138 Normal 136-[address] [facility] 250 DO Work Phone: > [address] [facility] 250 DO Work Phone: Comment on above: GFR estimated refere nce range: According to KDOQI guidelines, <60 ml/min/1.73m2 is sufficient to diagnose a patient with chronic kidney disease. 51\S\51 [facility] Work Phone: 1.10\S\1.10 above high threshold 0.44-1.03 [facility] 250 DO Work Phone: 15\S\15 Normal 9-23 [facility] 250 DO Work Phone: 95\S\95 Normal 70-100 [facility] y 250 DO Work Phone: Comment on above: Random Glucose Refer ence Range is dependent on time and content of last meal. Glucose of more than 200 mg/dL in a nonstressed, ambulatory subject supports the diagnosis of Diabetes Mellitus. ADA recommended reference range Serum or plasma calcium teagan urement (mass/volume)Ordered By: Marquez Beal on 09-18-2021 Calcium [Mass/Vol] 9.8 mg/dL 8.2-10.2 [facility] Serum or plasma chloride sophia surement (moles/volume)Ordered By: Marquez Beal on 09-18-2021 Chloride [Moles/Vol] 100 mmol/L 95-114 [facility] [place] Serum or plasma glucose teagan urement (mass/volume)Ordered By: Marquez Beal on 09-18-2021 Glucose [Mass/Vol] 95 mg/dL 70-100 [facility] Comment on above: ADA recommended refe rence range Random Glucose Reference Range is dependent on time and content of last meal. Glucose of more than 200 mg/dL in a nonstressed, ambulatory subject supports the diagnosis of Diabetes Mellitus. Serum or plasma potassium me asurement (moles/volume)Ordered By: Marquez Beal on 09-18-2021 Potassium [Moles/Vol] 3.9 mmol/L 3.5-5.1 [facility] Serum or plasma sodium measu rement (moles/volume)Ordered By: Marquez Beal on 08-01-2022 Sodium [Moles/Vol] 138 mmol/L 136-146 [facility] Serum or plasma total carbon dioxide measurement (moles/volume)Ordered By: Marquez Beal on 09-18-2021 CO2 [Moles/Vol] 25.1 mmol/L 22.0-30.0 [facility] Serum or plasma urea nitroge n measurement (mass/volume)Ordered By: Marquez Beal on 09-18-2021 Urea nitrogen [Mass/Vol] 15 mg/dL 9-23 [facility] Tobacco Screening.on 022 Adult depression screening assessment No -[facility] DO Work Phone: Fall risk assessment a) No falls within the last year [facility] DO Work Phone: Tobacco use status CPHS a) Yes [facility] 250 DO Work Phone: Tobacco Screening. Yes [facility] [facility] 250 DO Work Phone: Bacterial blood cultureOrder ed By: Bong Bansal on 08-19-2021 Bacteria identified Cx Nom (Bld) NO GROWTH 5 DAYS [facility] Basophils Auto (Bld) [#/Vol] Ordered By: Alaina Arce on 08-17-2021 Basophils (Bld) [#/Vol] 0.1 10*3/uL 0.0-0.2 [facility] Basophils/100 WBC Auto (Bld) Ordered By: Alaina Arce on 08-17-2021 Basophils/100 WBC (Bld) 0.7 % . [facility] Blood hemoglobin measurement (mass/volume)Ordered By: Alaina Arce on 08-17-2021 Hemoglobin (Bld) [Mass/Vol] 15.0 g/dL 11.8-15.4 [facility] Blood leukocytes automated c ount (number/volume)Ordered By: Alaina Arce on 08-17-2021 WBC (Bld) [#/Vol] 10.0 10*3/uL 4.5-11.0 [facility] Creatinine and Glomerular fi ltration rate.predicted panel (S/P/Bld)Ordered By: Alaina Arce on 08-17-2021 Creatinine [Mass/Vol] 1.27 mg/dL 0.44-1.03 [facility] Eosinophils Auto (Bld) [#/Vo l]Ordered By: Alaina Arce on 08-17-2021 Eosinophils (Bld) [#/Vol] 0.2 10*3/uL 0.0-0.45 [facility] Eosinophils/100 WBC Auto (Bl d)Ordered By: Alaina Arce on 08-17-2021 Eosinophils/100 WBC (Bld) 1.8 % . [facility] Erythrocyte distribution wid th Auto (RBC) [Ratio]Ordered By: Alaina Arce on 08-17-2021 Erythrocyte distribution width (RBC) [Ratio] 12.7 % 11.9-15.3 [facility] Estimated glomerular filtrat ion rate (GFR) non- AmericanOrdered By: Alaina Arce on 08-17-2021 GFR/1.73 sq M.predicted among non-blacks MDRD (S/P/Bld) [Vol rate/Area] 43 mL/Min [facility] Hematocrit Auto (Bld) [Volum e fraction]Ordered By: Alaina Arce on 08-17-2021 Hematocrit (Bld) [Volume fraction] 42.6 % 34.0-46.4 [facility] Laboratory - Hematology and Cell countsOrdered By: Alaina Arce on 08-17-2021 Nucleated RBC/100 WBC (Bld) [Ratio] 0.0 % 0-0.5 [facility] Lymphocytes Auto (Bld) [#/Vo l]Ordered By: Alaina Arce on 08-17-2021 Lymphocytes (Bld) [#/Vol] 2.4 10*3/uL 1.00-4.8 [facility] Lymphocytes/100 WBC Auto (Bl d)Ordered By: Alaina Arce on 08-17-2021 Lymphocytes/100 WBC (Bld) 23.7 % . [facility] MCH Auto (RBC) [Entitic mass ]Ordered By: Alaina Arce on 08-17-2021 MCH (RBC) [Entitic mass] 31.0 pg 24.7-34.3 [facility] MCHC Auto (RBC) [Mass/Vol]Or dered By: Alaina Arce on 08-17-2021 MCHC (RBC) [Mass/Vol] 35.3 g/dL 32.0-35.0 [facility] MCV Auto (RBC) [Entitic vol] Ordered By: Alaina Arce on 08-17-2021 MCV (RBC) [Entitic vol] 87.8 fL 80-100 [facility] Monocytes Auto (Bld) [#/Vol] Ordered By: Alaina Arce on 08-17-2021 Monocytes (Bld) [#/Vol] 1.0 10*3/uL 0.0-0.8 [facility] Monocytes/100 WBC Auto (Bld) Ordered By: Alaina Arce on 08-17-2021 Monocytes/100 WBC (Bld) 10.2 % . [facility] Neutrophils Auto (Bld) [#/Vo l]Ordered By: Alaian Arce on 08-17-2021 Neutrophils (Bld) [#/Vol] 6.3 10*3/uL 1.8-7.7 [facility] Neutrophils/100 WBC Auto (Bl d)Ordered By: Alaina Arce on 08-17-2021 Neutrophils/100 WBC (Bld) 63.6 % . [facility] No Panel InformationOrdered By: Alaina Arce on 08-17-2021 Estimated GFR () 52 mL/Min [facility] Comment on above: GFR estimated refere nce range: According to KDOQI guidelines, <60 ml/min/1.73m2 is sufficient to diagnose a patient with chronic kidney disease. Pharmacy Creatinine Clearance (Chem 47.54 [facility] Platelet mean volume Auto (B ld) [Entitic vol]Ordered By: Alaina Arce on 08-17-2021 Platelet mean volume (Bld) [Entitic vol] 8.5 fL 6.3-10.7 [facility] Platelets Auto (Bld) [#/Vol] Ordered By: Alaina Arce on 08-17-2021 Platelets (Bld) [#/Vol] 241 10*3/uL 150-450 [facility] RBC Auto (Bld) [#/Vol]Ordere d By: Alaina Arce on 08-17-2021 RBC (Bld) [#/Vol] 4.85 10*6/uL 3.60-5.00 [facility] Serum or plasma calcium teagan urement (mass/volume)Ordered By: Alaina Arce on 08-17-2021 Calcium [Mass/Vol] 8.9 mg/dL 8.2-10.2 [facility] Serum or plasma chloride sophia surement (moles/volume)Ordered By: Alaina Arce on 08-17-2021 Chloride [Moles/Vol] 101 mmol/L 95-114 [facility] Serum or plasma glucose teagan urement (mass/volume)Ordered By: Alaina Arce on 08-17-2021 Glucose [Mass/Vol] 132 mg/dL 70-100 [facility] Comment on above: ADA recommended refe rence range Random Glucose Reference Range is dependent on time and content of last meal. Glucose of more than 200 mg/dL in a nonstressed, ambulatory subject supports the diagnosis of Diabetes Mellitus. Serum or plasma potassium me asurement (moles/volume)Ordered By: Alaina Arce on 08-17-2021 Potassium [Moles/Vol] 2.9 mmol/L 3.5-5.1 [facility] Comment on above: Results called at 0721 on 08/17/21 Serum or plasma sodium measu rement (moles/volume)Ordered By: Alaina Arce on 08-17-2021 Sodium [Moles/Vol] 137 mmol/L 136-146 [facility] Serum or plasma total carbon dioxide measurement (moles/volume)Ordered By: Alaina Arce on 08-17-2021 CO2 [Moles/Vol] 25.3 mmol/L 22.0-30.0 [facility] Serum or plasma urea nitroge n measurement (mass/volume)Ordered By: Alaina Arce on 08-17-2021 Urea nitrogen [Mass/Vol] 17 mg/dL 9-23 [facility] Albumin [Mass/volume] in Ser um or PlasmaOrdered By: Alaina Arce on 08-16-2021 Albumin [Mass/Vol] 3.1 g/dL 3.2-5.5 [facility] Globulin Calc (S) [Mass/Vol] Ordered By: Alaina Arce on 08-16-2021 Globulin (S) [Mass/Vol] 3.0 g/dL [facility] Protein [Mass/volume] in Ser um or PlasmaOrdered By: Alaina Arce on 08-16-2021 Protein [Mass/Vol] 6.1 g/dL 6.1-7.9 [facility] Serum or plasma alanine spencer otransferase measurement without P-5'-P (enzymatic activiOrdered By: Alaina Arce on 08-16-2021 ALT No additional P-5'-P [Catalytic activity/Vol] 57 U/L 10-60 [facility] Serum or plasma albumin/glob ulin mass ratioOrdered By: Alaina Arce on 08-16-2021 Albumin/Globulin [Mass ratio] 1.0 {ratio} [facility] Serum or plasma alkaline calvin sphatase measurement (enzymatic activity/volume)Ordered By: Alaina Arce on 08-16-2021 ALP [Catalytic activity/Vol] 76 U/L 32-92 [facility] Serum or plasma aspartate am inotransferase measurement (enzymatic activity/volume)Ordered By: Alaina Arce on 08-16-2021 AST [Catalytic activity/Vol] 47 U/L 10-42 [facility] Serum or plasma total biliru bin measurement (mass/volume)Ordered By: Alaina Arce on 08-16-2021 Bilirubin [Mass/Vol] 1.5 mg/dL 0.3-1.2 [facility] Comment on above: Samples from patient s who have taken Naproxen have shown spurious elevation in Total Bilirubin levels. A metabolite of Naproxen, O-desmethylnaproxen, has been shown to interfere with the Jess method for measuring Total Bilirubin. Amphetamine Screen Ql (U)Ord ered By: Alaina Arce on 08-15-2021 Amphetamines Ql (U) Negative Negative [facility] Antithrombin measurement (un its/volume) in platelet poor plasma by chromogenic methodOrdered By: Janet Hamm on 08-15-2021 Antithrombin Chromogenic method Qn (PPP) 113 % 75-135 [facility] Comment on above: Direct Xa inhibitor anticoagulants such as rivaroxaban, apixaban and edoxaban will lead to spuriously elevated antithrombin activity levels possibly masking a deficiency. Barbiturates [Presence] in U rineOrdered By: Alaina Arce on 08-15-2021 Barbiturates Ql (U) Negative Negative [facility] Benzodiazepines [Presence] i n UrineOrdered By: Alaina Arce on 08-15-2021 Benzodiazepines Ql (U) Negative Negative [facility] Beta 2 glycoprotein 1 IgG Ab [Units/volume] in SerumOrdered By: Janet Hamm on 08-15-2021 Beta 2 glycoprotein 1 IgG Qn (S) <9 0-20 [facility] Comment on above: Result Units: [...] glycoprotein 1 IgM Qn (S) <9 0-32 [facility] Comment on above: Result Units: [...] 08-15-2021 Cannabinoids Screen Ql (U) Negative Negative [facility] Comment on above: These are [...] IA Qn (S) <9 GPL U/mL 0-14 [facility] Comment on above: Negative: <15 Indeterminate: 15 - 20 Low-Med Positive: >20 - 80 High Positive: >80 Cardiolipin IgM Ab [Units/vo lume] in Serum by ImmunoassayOrdered By: Janet Hamm on 08-15-2021 Cardiolipin IgM IA Qn (S) 17 MPL U/mL 0-12 [facility] Comment on above: Negative: <13 Indeterminate: 13 - 20 Low-Med Positive: >20 - 80 High Positive: >80 Cholesterol [Mass/volume] in Serum or PlasmaOrdered By: Janet Hamm on 08-15-2021 Cholesterol [Mass/Vol] 259 mg/dL 140-200 [facility] Comment on above: Chol less than 200 m g/dl low risk Chol 201-239 mg/dl borderline risk Chol 240 mg/dl and greater high risk Cholesterol in LDL Calc [Mas s/Vol]Ordered By: Janet Hamm on 08-15-2021 Cholesterol in LDL [Mass/Vol] 176 mg/dL 0-100 [facility] Comment on above: LDL ATP III CLASSIFI CATION LDL less than 100 mg/dL Optimal LDL 100-129 mg/dL Near or above optimal LDL 130-159 mg/dL Borderline high LDL 160-189 mg/dL High LDL greater than 189 mg/dL Very high Cholesterol in VLDL Calc [Ma ss/Vol]Ordered By: Janet Hamm on 08-15-2021 Cholesterol in VLDL [Mass/Vol] 32 mg/dL [facility] Dilute Vinay's viper venom timeOrdered By: Janet Hamm on 08-15-2021 dRVVT Coag (PPP) [Time] 45.5 s 0.0-47.0 [facility] Free protein S measurementOr dered By: Janet Hamm on 08-15-2021 Protein S Free Ag IA Qn (PPP) 134 % 61-136 [facility] Functional protein C measure mentOrdered By: Janet Hamm on 08-15-2021 Protein C actual/normal Chromogenic method (PPP) [Rel catalytic activity/Vol] 158 % 73-180 [facility] Laboratory - Drug toxicology Ordered By: Alaina Arce on 08-15-2021 Opiates Ql (U) Negative Negative [facility] Lupus anticoagulant [Interpr etation] in Platelet poor plasmaOrdered By: Janet Hamm on 08-15-2021 Lupus anticoagulant (PPP) [Interp] Comment: . [facility] Comment on above: No lupus anticoagula nt was detected. No Panel InformationOrdered By: Janet Hamm on 08-15-2021 Activated Protein C Resist Confirm 2.6 ratio 2.2-3.5 [facility] Comment on above: The APCR result may be falsely increased (masking an abnormal, low APCR result) in patients on direct Xa inhibitor (e.g., rivaroxaban, apixaban, edoxaban) or a direct thrombin inhibitor (e.g., dabigatran) anticoagulant therapy due to assay interference by these drugs. Phencyclidine Screen Ql (U)O rdered By: Alaina Arce on 08-15-2021 Phencyclidine Ql (U) Negative Negative [facility] Plasminogen measurementOrder ed By: Janet Hamm on 08-15-2021 Plasminogen actual/normal Chromogenic method (PPP) [Rel catalytic activity/Vol] 119 % 70-150 [facility] Platelet poor plasma ratio o f lupus anticoagulant-sensitive activated partial thromboOrdered By: Janet Hamm on 08-15-2021 aPTT.lupus sensitive.excess phospholipid actual/normal Coag (PPP) [Relative time] 38.6 sec 0.0-47.6 [facility] Prothrombin gene [id number] mut ation detectionOrdered By: Janet Hamm on 08-15-2021 F2 gene targeted mutation analysis Molgen Nom (Bld/Tiss) See comment . [facility] Comment on above: Result: c.*97G>A [...] the F2 gene and a c.1601G>A (p. Wsb191Imc) variant in the F5 gene (commonly referred to as Factor V Leiden) have an approximately 20- fold increased risk for venous thromboembolism. Risks are likely to be even higher in more complex genotype combinations involving the F2 c.*97G>A variant and Factor V Leiden (PMID: 63097019). Additional risk factors include but are not [...] health care providers to discuss results at [phone] ([phone]). Test Details: Variant analyzed: c.*97G>A, previously referred to as [id number] Methods/Limitations: DNA analysis of the F2 gene [...] developed and its performance characteristics determined by [employer]. It has not been cleared or approved by the Food and Drug Administration. References: Taj S, Briana AK, Gilberto R, Bogdan WW, Yanick JH; [employer]CMG Professional Practice and Guidelines Committee. Addendum: [place] [employer] consensus statement on factor V Leiden mutation testing. Zoë Med. 2020Apr 22. doi: 10.1038/y01232-278-79338-o. PMID: 85832273. Edgardo KRISHNA. Prothrombin Thrombophilia. 2005Sep 11 [Updated 2020Mar 24]. In: Rober MP, Thaddeus HH, Iman RA, et al., editors. Aliyah(R) [Internet]. Cathay (MD): [employer]; 2590-8301. Available from: https://www.ncbi.nlm.nih.gov/books/PEA9418/ Ariel S, Briana AK, Aakash X, Grady B, Vidal EB, Siobhan P, Anny CS; [facility] Laboratory Float Builder Committee. Venous thromboembolism laboratory testing (factor V Leiden and factor II c.*97G>A), 2018 update: a technical standard of the [place] [employer] and [employer] (ACMG). Zoë Med. 2017;20(12):3962-1773. doi: 10.1038/q32107-512-5192-r. Epub 2017Nov 22. PMID: 88807482. Evon Negron, PhD, [facility] Otis Guthrie, PhD, FAC Rehan Goodson, PhD, [facility]ACMG Nick Bergeron, PhD, FACMG Isela Pagan, PhD, FACMG Vee Mera, PhD, FACMG Gregoria Carrasco, PhD, FAC Performed at: - [facility] [id number] [employer]: Harshad Acosta PhD, Phone: [phone] Performed at: - [address] [id number] [employer]: Veronica Ring MD, Phone: [phone] Performed at: [facility] [address] [place], [place] [id number] [employer]: Becky Cabezas [facility], Phone: [phone] Serum or plasma high density lipoprotein (HDL) cholesterol measurementOrdered By: Janet Hamm on 08-15-2021 Cholesterol in HDL [Mass/Vol] 50 mg/dL 35-85 [facility] Comment on above: HDL CHOL ATP-III CLA SSIFICATION Cardiovascular Risk HDL > or equal to 60 mg/dL LOW HDL < 40 mg/dL HIGH Serum or plasma homocysteine measurement (moles/volume)Ordered By: Janet Hamm on 08-15-2021 Homocysteine [Moles/Vol] 12.8 umol/L 0.0-14.5 [facility] Serum or plasma total choles terol/high density lipoprotein (HDL) cholesterol mass ratOrdered By: Janet Hamm on 08-15-2021 Cholesterol.total/Chol esterol in HDL [Mass ratio] 5.2 {ratio} <5.0 [facility] Triglyceride [Mass/volume] i n Serum or PlasmaOrdered By: Janet Hamm on 08-15-2021 Triglyceride [Mass/Vol] 164 mg/dL 35-149 [facility] Comment on above: TRIG ATP III CLASSIF ICATION TRIG less than 150 mg/dL Normal TRIG 150-199 mg/dL Borderline high TRIG 200-500 mg/dL High TRIG greater than 500 mg/dL Very high Standard traceable to the Center for Disease Conrtrol and Prevention (CDC) test method. Urine cocaine detectionOrder ed By: Alaina Arce on 08-15-2021 Cocaine Ql (U) Negative Negative [facility] Urine culture routineOrdered By: Alaina Arce on 08-15-2021 Bacteria identified Cx Nom (U) 2 Days [facility] aPTT.lupus sensitive (LA scr een)Ordered By: Janet Hamm on 08-15-2021 aPTT.lupus sensitive Coag (PPP) [Time] 35.2 sec 0.0-51.9 [facility] aPTT.lupus sensitive/aPTT.sheryl pus sensitive W excess phospholipid (screen to confirm raOrdered By: Janet Hamm on 08-15-2021 aPTT.lupus sensitive/aPTT.lupus sensitive W excess phospholipid Coag (PPP) [Ratio] 0.94 Ratio 0.00-1.34 [facility] Activated partial thrombopla stin time (aPTT) in platelet poor plasma by coagulation aOrdered By: Bong Bansal on 08-14-2021 aPTT Coag (PPP) [Time] 28.2 s 25.1-36.5 [facility] Bacterial blood cultureOrder ed By: Bong Bansal on 08-14-2021 Bacteria identified Cx Nom (Bld) NO GROWTH 5 DAYS [facility] Creatinine [Mass/volume] in UrineOrdered By: Alaina Arce on 08-14-2021 Creatinine (U) [Mass/Vol] 74.6 mg/dL [facility] Comment on above: No reference range e stablished Glucose Glucometer (BldC) [M ass/Vol]Ordered By: Alaina Arce on 08-14-2021 Glucose [Mass/Vol] 102 mg/dL [facility] Comment on above: Random Glucose Refer ence Range is dependent on time and content of last meal. Glucose of more than 200 mg/dL in a nonstressed, ambulatory subject supports the diagnosis of Diabetes Mellitus. Glucose mean value [Mass/vol ume] in Blood Estimated from glycated hemoglobinOrdered By: Janet Hamm on 08-14-2021 Average glucose Estimated from glycated hemoglobin (Bld) [Mass/Vol] 126 mg/dL [facility] Hemoglobin A1c percentageOrd ered By: Janet Hamm on 08-14-2021 HbA1c (Bld) [Mass fraction] 6.0 % 4.3-5.6 [facility] Comment on above: Increased risk for d iabetes: 5.7 - 6.4 diabetes: >6.4 glycemic control for adults with diabetes: <7.0 Laboratory - Chemistry and C hemistry - challengeOrdered By: Alaina Arce on 08-14-2021 Magnesium [Mass/Vol] 2.3 mg/dL 1.6-2.6 [facility] Laboratory - CoagulationOrde red By: Bong Bansal on 08-14-2021 PT Coag (PPP) [Time] 11.8 s 9.0-12.9 [facility] Platelet poor plasma interna tional normalized ratio (INR) by coagulation assay (relatOrdered By: Bong Bansal on 08-14-2021 INR Coag (PPP) [Relative time] 1.1 {INR} [facility] Comment on above: INR Therapeutic [...] 08-14-2021 Protein (U) [Mass/Vol] 100 mg/dL 0-9 [facility] Renin activityOrdered By: Emma Arce on 08-14-2021 Renin (P) [Catalytic activity/Vol] 27.141 ng/mL/hr 0.167-5.38 0 [facility] Comment on above: This test was develo ped and its performance characteristics determined by [employer]. It has not been cleared or approved by the Food and Drug Administration. Performed at: [facility] [address] [id number] [employer]: Veronica Ring MD, Phone: [phone] Serum or plasma aldosterone measurement (mass/volume)Ordered By: Alaina Arce on 08-14-2021 Aldosterone [Mass/Vol] 7.8 ng/dL 0.0-30.0 [facility] Comment on above: This test was develo ped and its performance characteristics determined by [employer]. It has not been cleared or approved by the Food and Drug Administration. Performed at: [facility] [address] [id number] [employer]: Veronica Ring MD, Phone: [phone] Urine protein/creatinine rat ioOrdered By: Alaina Arce on 08-14-2021 Protein/Creatinine (U) [Ratio] 1340 mg/g{Cre} 0-200 [facility] Urine sodium measurement (mo les/volume)Ordered By: Alaina Arce on 08-14-2021 Sodium (U) [Moles/Vol] 54.0 mmol/L [facility] Comment on above: No reference range e stablished AMYLASEon 08-13-2021 Amylase [Catalytic activity/Vol] 80 U/L Normal 25-115 [facility] Comment on above: Performed By: #### A MY, CMP, LIPA #### [facility] [address] [place] [address] Dr. Moreno Amato Automated erythrocytes count in urine sediment (number/area)Ordered By: Alaina Arce on 08-13-2021 RBC Auto (Urine sed) [#/Area] 5-9 [HPF] 0-4 [facility] Automated leukocytes count i n urine sediment (number/area)Ordered By: Alaina Arce on 08-13-2021 WBC Auto (Urine sed) [#/Area] 20-49 [HPF] 0-4 [facility] Bilirubin Test strip Ql (U)O rdered By: Alaina Arce on 08-13-2021 Bilirubin Ql (U) Negative Negative [facility] CBC AUTO DIFFon 08-13-2021 BASO # 0.1 103/ul Normal 0.0-0.1 [facility] Comment on above: Performed By: #### C BC #### [facility] [address] [place] [address] Dr. Moreno Amato Basophils/100 WBC (Bld) 0.6 % Normal 0.2-2.0 [facility] Comment on above: Performed By: #### C BC #### [facility] [address] [place] [address] Dr. Moreno Amato EO # 0.1 103/ul Normal 0.0-0.7 [facility] Comment on above: Performed By: #### C BC #### [facility] [address] [place] [address] Dr. Moreno Amato Eosinophils/100 WBC (Bld) 0.6 % Critically low 0.9-7.0 [facility] Comment on above: Performed By: #### C BC #### [facility] [address] [place] [address] Dr. Moreno Amato Erythrocyte distribution width (RBC) [Ratio] 11.9 % Normal 11.0-15.0 [facility] Comment on above: Performed By: #### C BC #### [facility] [address] [address] [address] Moreno Amato Hematocrit (Bld) [Volume fraction] 51.0 % Critically high 36.0-48.0 [facility] Comment on above: Performed By: #### C BC #### [facility] [address] [address] [address] Moreno Amato Hemoglobin (Bld) [Mass/Vol] 18.2 g/dL Critically high 12.0-16.0 [facility] Comment on above: Performed By: #### C BC #### [facility] [address] [place] [address] Dr. Moreno Amato IG # 0.04 10e3/ul Critically high 0.00-0.03 [facility] Comment on above: Performed By: #### C BC #### [facility] [address] [place] [address] Dr. Moreno Amato IG % 0.3 % Normal 0.0-0.5 [facility] Comment on above: Performed By: #### C BC #### [facility] [address] [place] [address] Dr. Moreno Amato LYMPH # 2.2 103/ul Normal 1.2-3.8 [facility] Comment on above: Performed By: #### C BC #### [facility] [address] [place] [address] Dr. Moreno Amato Lymphocytes/100 WBC (Bld) 17.1 % Critically low 20.5-60.0 [facility] Comment on above: Performed By: #### C BC #### [facility] [address] [place] [address] Dr. Moreno Amato MANUAL DIFF REQ NO Normal [facility] Comment on above: Performed By: #### C BC #### [facility] [address] [place] [address] Dr. Moreno Amato MCH (RBC) [Entitic mass] 30.4 pg Normal 26.7-34.0 [facility] Comment on above: Performed By: #### C BC #### [facility] [address] [address] [address] Moreno Amato MCHC (RBC) [Mass/Vol] 35.7 g/dL Critically high 29.9-35.2 [facility] Comment on above: Performed By: #### C BC #### [facility] [address] [address] [address] Moreno Amato MCV (RBC) [Entitic vol] 85.1 fL Normal 81.0-99.0 [facility] Comment on above: Performed By: #### C BC #### [facility] [address] [address] [address] Moreno Amato MONO # 1.3 103/ul Critically high 0.3-0.8 [facility] Comment on above: Performed By: #### C BC #### [facility] [address] [place] [address] Dr. Moreno Amato Monocytes/100 WBC (Bld) 10.0 % Normal 1.7-12.0 [facility] Comment on above: Performed By: #### C BC #### [facility] [address] [address] [address] Moreno Amato NEUT # 9.3 103/ul Critically high 1.4-6.[address] [facility] Comment on above: Performed By: #### C BC #### [facility] [address] [place] [address] Dr. Moreno Amato Neutrophils/100 WBC (Bld) 71.4 % Normal 43.0-75.0 [facility] Comment on above: Performed By: #### C BC #### [facility] [address] [address] [address] Moreno Amato Platelet mean volume (Bld) [Entitic vol] 9.8 fL Normal 9.5-13.5 [facility] Comment on above: Performed By: #### C BC #### [facility] [address] [place] [address] Dr. Moreno Amato PLT 242 103/ul Normal 150-450 [facility] Comment on above: Performed By: #### C BC #### [facility] [address] [address] [address] Moreno Amato RBC 5.99 106/ul Critically high 4.20-5.40 [facility] Comment on above: Performed By: #### C BC #### [facility] [address] [address] [address] Moreno Amato WBC 13.0 103/ul Critically high 4.0-11.0 [facility] Comment on above: Performed By: #### C BC #### [facility] [address] [address] [address] ABD/PELVIS WO CONon [...] Vinay MANN Date: 2021-08-13 03:36 Normal [facility] CT STROKE HEAD WOon 08-14-19 CT STROKE [...] MAVIS ROSSI Date: 2021-08-13 07:39 Normal [facility] CULTURE URINEon 08-13-2021 CULTURE URINE Culture Observations : LIGHT GROWTH OF MIXED GENITAL ZOE. NO POTENTIAL PATHOGENS SEEN. Normal [facility] Comment on above: Performed By: #### A MY, CMP, LIPA #### [facility] [address] [address] [address] Moreno Amato Color Auto (U)Ordered By: Emma Arce on 08-13-2021 Color (U) Yellow [facility] Covid-19 PCR (CVDTBH)on 07-20 SARS-CoV-2 (COVID-19) RNA ELISA+probe Ql (Unsp spec) Not detected Normal NOT DETECTED [facility] Comment on above: Result Comment: When diagnostic [...] for this test is supported by the [place] of [employer] and Human Service's declaration that [...] used). Performed By: #### C VDTB #### [facility] [address] [place] [address] Dr. Moreno Amato ER URINE PROFILEon 2 Bilirubin Ql (U) Negative Normal NEGATIVE [facility] Comment on above: Performed By: #### E RUR, UMICRO #### [facility] [address] [place] [address] Dr. Moreno Amato Clarity (U) CLEAR Normal CLEAR [facility] Comment on above: Performed By: #### E RUR, UMICRO #### [facility] [address] [place] [address] Dr. Moreno Amato Color (U) LT. YELLOW Normal YELLOW [facility] Comment on above: Performed By: #### E RUR, UMICRO #### [facility] [address] [place] [address] Dr. Moreno Amato ERUGIANCARLOD A micrscopic examina tion will be performed if indicated. Normal [facility] Comment on above: Performed By: #### E RUR, UMICRO #### [facility] [address] [place] [address] Dr. Moreno Amato Glucose Ql (U) Negative Normal NEGATIVE [facility] Comment on above: Performed By: #### E RUR, UMICRO #### [facility] [address] [place] [address] Dr. Moreno Amato Hemoglobin Ql (U) MODERATE Abnormal NEGATIVE [facility] Comment on above: Performed By: #### E RUR, UMICRO #### [facility] [address] [place] [address] Dr. Moreno Amato Ketones Ql (U) Negative Normal NEGATIVE [facility] Comment on above: Performed By: #### E RUR, UMICRO #### [facility] [address] [place] [address] Dr. Moreno Amato LEUKOCYTES SMALL Abnormal NEGATIVE [facility] Comment on above: Performed By: #### NAOMI FRANCISCO #### [facility] [address] [place] [address] Dr. Moreno Amato Nitrite Ql (U) Positive Abnormal NEGATIVE [facility] Comment on above: Performed By: #### NAOMI FRANCISCO #### [facility] [address] [place] [address] Dr. Moreno Amato pH (U) 6.0 [pH] Normal 5-9 [facility] Comment on above: Performed By: #### NAOMI FRANCISCO #### [facility] [address] [place] [address] Dr. Moreno Amato SPEC GRAVITY 1.020 Normal 1.005-<=1. 025 [facility] Comment on above: Performed By: #### NAOMI FARNCISCO #### [facility] [address] [place] [address] Dr. Moreno Amato UA PROTEIN >300 Abnormal NEGATIVE/ TRACE [facility] Comment on above: Performed By: #### NAOMI FRANCISCO #### [facility] [address] [place] [address] Dr. Moreno Amato UR MICRO IND INDICATED Normal [facility] Comment on above: Performed By: #### NAOMI FRANCISCO #### [facility] [address] [place] [address] Dr. Moreno Amato Urobilinogen Qn (U) 0.2 {[place]'U}/dL Normal 0.2 - 1. 0 [facility] Comment on above: Performed By: #### NAOMI FRANCISCO #### [facility] [address] [place] [address] Dr. Moreno Amato Ketones Auto test strip (U) [Mass/Vol]Ordered By: Alaina Arce on 08-13-2021 Ketones (U) [Mass/Vol] Negative Negative [facility] LACTATE/LACTIC ACIDon 2021 Lactate [Moles/Vol] 1.1 mmol/L Normal 0.4-1.9 [facility] Comment on above: Performed By: #### A MY, CMP, LIPA #### [facility] [address] [address] [address] Moreno Amato LIPASEon 08-13-2021 Lipase [Catalytic activity/Vol] 524.0 U/L Critically high 73.0-393.0 [facility] Comment on above: Performed By: #### A MY, CMP, LIPA #### [facility] [address] [address] [address] Moreno Amato Laboratory - Chemistry and C hemistry - challengeOrdered By: Alaina Arce on 08-13-2021 Lactate [Moles/Vol] 1.6 mmol/L 0.5-2.2 [facility] - UrinalysisOrder ed By: Alaina Arce on 08-13-2021 Hyaline casts LM Ql (Urine sed) 9-19 [LPF] 0-8 [facility] Nitrite Test strip Ql (U)Ord ered By: Alaina Arce on 08-13-2021 Nitrite Ql (U) Positive Negative [facility] POINT OF CARE GLUCOSEon 07-20 Glucose [Mass/Vol] 129 mg/dL Critically high 74-106 [facility] Comment on above: Performed By: #### A MY, CMP, LIPA #### [facility] [address] [address] [address] Moreno Amato PROF 14(COMP METB)on 022 Albumin [Mass/Vol] 3.4 g/dL Normal 3.4-5.0 [facility] Comment on above: Performed By: #### A MY, CMP, LIPA #### [facility] [address] [address] [address] Moreno Amato Albumin/Globulin [Mass ratio] 0.8 {ratio} Normal [facility] Comment on above: Performed By: #### A MY, CMP, LIPA #### [facility] [address] [address] [address] Moreno Amato ALP [Catalytic activity/Vol] 105 U/L Normal 46-116 [facility] Comment on above: Performed By: #### A MY, CMP, LIPA #### [facility] [address] [address] [address] Moreno Amato ALT [Catalytic activity/Vol] 22 U/L Normal 14-59 [facility] Comment on above: Performed By: #### A MY, CMP, LIPA #### [facility] [address] [address] [address] Moreno Amato Anion gap [Moles/Vol] 11.6 mmol/L Normal [facility] [place] Comment on above: Performed By: #### A MY, CMP, LIPA #### [facility] [address] [place] [address] Dr. Moreno Amato AST [Catalytic activity/Vol] 22 U/L Normal 15-37 [facility] Comment on above: Performed By: #### A MY, CMP, LIPA #### [facility] [address] [place] [address] Dr. Moreno Amato Bilirubin [Mass/Vol] 0.7 mg/dL Normal 0.2-1.0 [facility] Comment on above: Performed By: #### A MY, CMP, LIPA #### [facility] [address] [place] [address] Dr. Moreno Amato Calcium [Mass/Vol] 9.6 mg/dL Normal 8.5-10.1 [facility] Comment on above: Performed By: #### A MY, CMP, LIPA #### [facility] [address] [place] [address] Dr. Moreno Amato Chloride [Moles/Vol] 97 mmol/L Critically low 98-107 [facility] Comment on above: Performed By: #### A MY, CMP, LIPA #### [facility] [address] [place] [address] Dr. Moreno Amato CO2 [Moles/Vol] 31.2 mmol/L Normal 21.0-32.0 [facility] Comment on above: Performed By: #### A MY, CMP, LIPA #### [facility] [address] [address] [address] Moreno Amato Creatinine [Mass/Vol] 1.64 mg/dL Critically high 0.55-1.02 [facility] Comment on above: Performed By: #### A MY, CMP, LIPA #### [facility] [address] [address] [address] Moreno Amato EGFR-AF TOGOLESE 39 mL/min/1.73m2 Critically low >=60 [facility] Comment on above: Performed By: #### A MY, CMP, LIPA #### [facility] [address] [address] [address] Moreno Amato EGFR-NON AF TOGOLESE 32 mL/min/1.73m2 Critically low >=60 [facility] Comment on above: Performed By: #### A MY, CMP, LIPA #### [facility] [address] [place] [address] Dr. Moreno Amato Globulin (S) [Mass/Vol] 4.1 g/dL Normal [facility] Comment on above: Performed By: #### A MY, CMP, LIPA #### [facility] [address] [address] [address] Moreno Amato Glucose [Mass/Vol] 110 mg/dL Critically high 74-106 [facility] Comment on above: Performed By: #### A MY, CMP, LIPA #### [facility] [address] [address] [address] Moreno Amato Potassium [Moles/Vol] 2.8 mmol/L Critically low 3.5-5.1 [facility] Comment on above: Performed By: #### A MY, CMP, LIPA #### [facility] [address] [address] [address] Moreno Amato Protein [Mass/Vol] 7.5 g/dL Normal 6.4-8.2 [facility] Comment on above: Performed By: #### A MY, CMP, LIPA #### [facility] [address] [address] [address] Moreno Amato Sodium [Moles/Vol] 137 mmol/L Normal 136-145 [facility] Comment on above: Performed By: #### A MY, CMP, LIPA #### [facility] [address] [address] [address] Moreno Amato Urea nitrogen [Mass/Vol] 26.0 mg/dL Critically high 7.0-18.0 [facility] Comment on above: Performed By: #### A MY CMP, LIPA #### [facility] [address] [address] [address] Moreno Amato Urea nitrogen/Creatinine [Mass ratio] 15.9 mg/mg Normal [facility] Comment on above: Performed By: #### A MY CMP, LIPA #### [facility] [address] [address] [address] Moreno Amato Protein Auto test strip (U) [Mass/Vol]Ordered By: Alaina Arce on 08-13-2021 Protein (U) [Mass/Vol] mg/dL Negative [facility] Specific gravity Auto test s trip (U) [Rel density]Ordered By: Alaina Arce on 08-13-2021 Specific gravity (U) [Rel density] 1.017 1.001-1.03 0 [facility] Squamous epithelial cells de tection in urine sediment by light microscopyOrdered By: Alaina Arce on 08-13-2021 Epithelial cells.squamous LM Ql (Urine sed) 3-4 [HPF] 0-2 [facility] TROPONIN, HIGH SENSITIVITYon 08-13-2021 HSTROP 91.0 pg/mL Critically high 4.0-51.3 [facility] Comment on above: Result Comment: CUT- OFF POINTS HAVE BEEN ESTABLISHED BASED ON THE FOURTH UNIVERSAL DEFINITIONS OF MYOCARDIAL INFARCTION. THE UPPER REFERENCE LIMIT (URL) OF TROPONIN, DEFINED THE 99TH PERCENTILE OF cTnI DISTRIBUTION IN A REFERENCE POPULATION, HAS BEEN CONFIRMED THE DECISION THRESHOLD FOR TX DIAGNOSIS. Performed By: #### A MY, CMP, LIPA #### [facility] [address] [address] [address] Moreno Amato HSTROP 109.0 pg/mL Critically high 4.0-51.3 [facility] Comment on above: Result Comment: CUT- OFF POINTS HAVE BEEN ESTABLISHED BASED ON THE FOURTH UNIVERSAL DEFINITIONS OF MYOCARDIAL INFARCTION. THE UPPER REFERENCE LIMIT (URL) OF TROPONIN, DEFINED THE 99TH PERCENTILE OF cTnI DISTRIBUTION IN A REFERENCE POPULATION, HAS BEEN CONFIRMED THE DECISION THRESHOLD FOR TX DIAGNOSIS. Performed By: #### H STROPN #### [facility] [address] [place] [address] Dr. Moreno Amato Troponin I.cardiac [Mass/vol ume] in Serum or Plasma by High sensitivity methodOrdered By: Alaina Arce on 08-13-2021 Troponin I.cardiac High sensitivity method [Mass/Vol] 50 pg/mL 0-15 [facility] Comment on above: Critical value result called at 1736 on 08/13/21 URINE MICROSCOPIC ONLYon BACTERIA SMALL Abnormal NONE SEEN [facility] Comment on above: Performed By: #### E RUR, UMICRO #### [facility] [address] [place] [address] Dr. Moreno Amato Bacteria identified Cx Nom (U) INDICATED Normal [facility] Comment on above: Performed By: #### E RUR, UMICRO #### [facility] [address] [place] [address] Dr. Moreno Amato CAST SEEN Abnormal NONE SEEN [facility] Comment on above: Performed By: #### E RUR, UMICRO #### [facility] [address] [place] [address] Dr. Moreno Amato Crystals LM Nom (Urine sed) NONE SEEN Normal NONE SEEN [facility] Comment on above: Performed By: #### E RUR, UMICRO #### [facility] [address] [place] [address] Dr. Moreno Amato Epithelial cells LM Ql (Urine sed) FEW Abnormal NONE SEEN /RARE [facility] Comment on above: Performed By: #### E RUR, UMICRO #### [facility] [address] [place] [address] Dr. Moreno VASQUES CAST FEW Normal [facility] Comment on above: Performed By: #### E RUR, UMICRO #### [facility] [address] [address] [address] Moreno Amato MUCOUS NONE SEEN Normal NONE SEEN [facility] Comment on above: Performed By: #### NAOMI FRANCISCO #### [facility] [address] [address] [address] Moreno Amato RBC 2-5 Abnormal 0-2 [facility] Comment on above: Performed By: #### NAOMI FRANCISCO #### [facility] [address] [address] [address] Moreno Amato WBC 20-50 Abnormal NONE SEEN [facility] Comment on above: Performed By: #### NAOMI FRANCISCO #### [facility] [address] [address] [address] Moreno Amato Urine bacteria detection by automated methodOrdered By: Alaina Arce on 08-13-2021 Bacteria Auto Ql (U) None seen None Seen [facility] Urine clarity by refractomet ry automatedOrdered By: Alaina Arce on 08-13-2021 Clarity Refractometry automated (U) Cloudy Clear [facility] Urine culture routineOrdered By: Alaina Arce on 08-13-2021 Bacteria identified Cx Nom (U) 2 Days [facility] Urine glucose measurement by automated test strip (mass/volume)Ordered By: Alaina Arce on 08-13-2021 Glucose Auto test strip (U) [Mass/Vol] Normal mg/dL Normal [facility] Urine hemoglobin detection b y automated test stripOrdered By: Alaina Arce on 08-13-2021 Hemoglobin Auto test strip Ql (U) 1+ Negative [facility] Urine leukocyte esterase det ection by automated test stripOrdered By: Alaina Arce on 08-13-2021 Leukocyte esterase Auto test strip Ql (U) 1+ Negative [facility] Urobilinogen Auto test strip (U) [Mass/Vol]Ordered By: Alaina Arce on 08-13-2021 Urobilinogen (U) [Mass/Vol] Normal mg/dL Normal [facility] XR CHEST 1 Von 08-13-2021 [...] Vinay MANN Date: 2021-08-13 06:28 Normal [facility] pH Auto test strip (U)Ordere d By: Alaina Arce on 08-13-2021 pH (U) 5.5 [pH] 5.0-9.0 [facility] KYARA DIGITAL SCREEN SELF REFERRAL W OR WO CAD BILATERALon 12-16-2020 [facility] KYARA DIGITAL SCREEN SELF REFERRAL [...] to the patient regarding the results. The [employer] recommends annual mammograms for women 40 years and older. Interpreted by: Uvaldo Read Signed by: Uvaldo Read 12/16/20 Final result Normal [facility] Vital Signs Date Time Vital Sign Value Performing Clinician Facility 07-14-2024 17:20-0400 Diastolic blood pressure 61 mm[Hg] Juany Cochran DO Work Phone: [facility] 07-14-2024 17:20-0400 Heart rate 63 /min Juany Sammie DO Work Phone: [facility] 07-14-2024 17:20-0400 Respiratory rate 20 /min Juany Sammie DO Work Phone: [facility] 07-14-2024 17:20-0400 SaO2% (BldA) [Mass fraction] 93 % Juany Sammie DO Work Phone: [facility] 07-14-2024 17:20-0400 Systolic blood pressure 110 mm[Hg] Juany Sammie DO Work Phone: [facility] 07-14-2024 13:50-0400 Body temperature 97.2 [degF] Juany Sammie DO Work Phone: [facility] 07-14-2024 12:14-0400 Body height 162.56 cm Juany Sammie DO Work Phone: [facility] 07-14-2024 12:14-0400 Body weight 68 kg Juany Sammie DO Work Phone: [facility] 07-02-2024 12:34-0400 Diastolic blood pressure 77 mm[Hg] Elsa [address] [place] [address] 07-02-2024 12:34-0400 Heart rate 66 /min Elsa [address] [place] [address] 07-02-2024 12:34-0400 Systolic blood pressure 125 mm[Hg] Elsa [address] [place] [address] 07-02-2024 12:14-0400 Respiratory rate 21 /min Elsa [address] [place] [address] 06-02-2024 08:51-0400 Body height 162.6 cm Jaycob Goldstein MD Work Phone: [facility] 06-02-2024 08:51-0400 Body mass index (BMI) [Ratio] 25.06 kg/m2 Jaycob Goldstein MD Work Phone: [facility] 06-02-2024 08:51-0400 Body weight 66.22 kg Jaycob Goldstein MD Work Phone: [facility] 06-02-2024 08:51-0400 Diastolic blood pressure 60 mm[Hg] Jaycob Goldstein MD Work Phone: [facility] 06-02-2024 08:51-0400 Heart rate 56 /min Jaycob Goldstein MD Work Phone: [facility] 06-02-2024 08:51-0400 Systolic blood pressure 118 mm[Hg] Jaycob Goldstein MD Work Phone: [facility] 01-01-2024 14:45-0500 Blood Pressure Location Dereck GROVES [facility] 01-01-2024 14:45-0500 Diastolic blood pressure 90 mm[Hg] Dereck GROVES [facility] 01-01-2024 14:45-0500 Heart rate 68 /min Dereck GROVES [facility] 01-01-2024 14:45-0500 Respiratory rate 16 /min Dereck GROVES [facility] 01-01-2024 14:45-0500 Systolic blood pressure 130 mm[Hg] Dereck GROVES [facility] 11-29-2023 13:00-0400 Diastolic blood pressure 80 mm[Hg] [facility] 11-29-2023 13:00-0400 Heart rate 68 /min [facility] 11-29-2023 13:00-0400 Mean blood pressure 92 mm[Hg] [facility] 11-29-2023 13:00-0400 Respiratory rate 16 /min [facility] 11-29-2023 13:00-0400 SaO2% (BldA) [Mass fraction] 98 % [facility] 11-29-2023 13:00-0400 Systolic blood pressure 116 mm[Hg] [facility] 11-29-2023 12:00-0400 Heart rate 71 /min [facility] 11-29-2023 12:00-0400 Respiratory rate 20 /min [facility] 11-29-2023 12:00-0400 SaO2% (BldA) [Mass fraction] 97 % [facility] 11-29-2023 12:00-0400 Systolic blood pressure 136 mm[Hg] [facility] 11-29-2023 11:53-0400 Body temperature 97.7 [degF] [facility] 11-29-2023 11:53-0400 Diastolic blood pressure 89 mm[Hg] [facility] 11-29-2023 11:53-0400 Heart rate 70 /min [facility] 11-29-2023 11:53-0400 Respiratory rate 18 /min [facility] 11-29-2023 11:53-0400 SaO2% (BldA) [Mass fraction] 96 % [facility] 11-29-2023 11:53-0400 Systolic blood pressure 149 mm[Hg] [facility] 02-14-2023 09:56-0500 Inhaled oxygen flow rate 1 L/min MD Shaikh Thompson Work Phone: [facility] 02-14-2023 08:00-0500 Body temperature 97.7 [degF] MD Shaikh Thompson Work Phone: [facility] 02-14-2023 08:00-0500 Diastolic blood pressure 69 mm[Hg] MD Shaikh Thompson Work Phone: [facility] 02-14-2023 08:00-0500 Heart rate 78 /min MD Shaikh Thompson Work Phone: [facility] 02-14-2023 08:00-0500 Respiratory rate 20 /min MD Shaikh Thompson Work Phone: [facility] 02-14-2023 08:00-0500 SaO2% (BldA) [Mass fraction] 95 % MD Shaikh Thompson Work Phone: [facility] 02-14-2023 08:00-0500 Systolic blood pressure 118 mm[Hg] MD Shaikh Thompson Work Phone: [facility] 02-14-2023 05:51-0500 Body weight 69.9 kg MD Shaikh Thompson Work Phone: [facility] 02-13-2023 12:53-0500 Body height 157.48 cm MD Shaikh Thompson Work Phone: [facility] 02-10-2023 17:00-0500 Heart rate 85 /min [facility] 02-10-2023 16:38-0500 Diastolic blood pressure 80 mm[Hg] [facility] 02-10-2023 16:38-0500 Heart rate 80 /min [facility] 02-10-2023 16:38-0500 Mean blood pressure 99 mm[Hg] [facility] 02-10-2023 16:38-0500 Respiratory rate 18 /min [facility] 02-10-2023 16:38-0500 SaO2% (BldA) [Mass fraction] 95 % [facility] 02-10-2023 16:38-0500 Systolic blood pressure 138 mm[Hg] [facility] 02-10-2023 15:40-0500 Diastolic blood pressure 92 mm[Hg] [facility] 02-10-2023 15:40-0500 Heart rate 90 /min [facility] 02-10-2023 15:40-0500 Mean blood pressure 105 mm[Hg] [facility] 02-10-2023 15:40-0500 Respiratory rate 20 /min [facility] 02-10-2023 15:40-0500 SaO2% (BldA) [Mass fraction] 94 % [facility] 02-10-2023 15:40-0500 Systolic blood pressure 132 mm[Hg] [facility] 02-10-2023 14:42-0500 Body temperature 98.24 [degF] [facility] 02-10-2023 14:42-0500 Heart rate 93 /min [facility] 02-10-2023 14:42-0500 Respiratory rate 24 /min [facility] 02-10-2023 14:00-0500 Blood Pressure Location Jaxson Johnson [facility] 02-10-2023 14:00-0500 Body temperature 96.8 [degF] Jaxson Johnson [facility] [facility] 02-10-2023 14:00-0500 Diastolic blood pressure 90 mm[Hg] Jaxson Johnson [facility] 02-10-2023 14:00-0500 Heart rate 88 /min Jaxson Johnson [facility] 02-10-2023 14:00-0500 SaO2% (BldA) [Mass fraction] 92 % Jaxson Johnson [facility] 02-10-2023 14:00-0500 Systolic blood pressure 140 mm[Hg] Jaxson Johnson [facility] 10-15-2022 17:36-0400 Blood Pressure Location Damion Cheek [facility] 10-15-2022 17:36-0400 Body temperature 97.34 [degF] Damion Cheek [facility] 10-15-2022 17:36-0400 Diastolic blood pressure 76 mm[Hg] Damion Ham [facility] 10-15-2022 17:36-0400 Heart rate 60 /min Damion Ham [facility] 10-15-2022 17:36-0400 SaO2% (BldA) [Mass fraction] 96 % Damion Cheek [facility] 10-15-2022 17:36-0400 Systolic blood pressure 122 mm[Hg] Damion Hma [facility] 10-09-2022 14:24-0400 Body height 157.5 cm Gurmeet Ojeda MD Work Phone: [facility] 10-09-2022 14:24-0400 Body temperature 97.5 [degF] Gurmeet Ojeda MD Work Phone: [facility] 10-09-2022 14:24-0400 Body weight 71.26 kg Gurmeet Ojeda MD Work Phone: [facility] 10-09-2022 14:24-0400 Diastolic blood pressure 60 mm[Hg] Gurmeet Ojeda MD Work Phone: [facility] 10-09-2022 14:24-0400 Heart rate 60 /min Gurmeet Ojeda MD Work Phone: [facility] 10-09-2022 14:24-0400 Systolic blood pressure 91 mm[Hg] Gurmeet Ojeda MD Work Phone: [facility] 08-09-2022 14:56-0400 Body height 157.5 cm Gurmeet Ojeda MD Work Phone: [facility] 08-09-2022 14:56-0400 Body temperature 97.7 [degF] Gurmeet Ojeda MD Work Phone: [facility] 08-09-2022 14:56-0400 Body weight 72.53 kg Gurmeet Ojeda MD Work Phone: [facility] 08-09-2022 14:56-0400 Diastolic blood pressure 64 mm[Hg] Gurmeet Ojeda MD Work Phone: [facility] 08-09-2022 14:56-0400 Heart rate 65 /min Gurmeet Ojeda MD Work Phone: [facility] 08-09-2022 14:56-0400 Systolic blood pressure 98 mm[Hg] Gurmeet Ojeda MD Work Phone: [facility] 06-14-2022 12:57-0400 Blood Pressure Location Ayala SALAM [facility] 06-14-2022 12:57-0400 Diastolic blood pressure 74 mm[Hg] Ayala SALAM [facility] 06-14-2022 12:57-0400 Heart rate 80 /min Ayala SALAM [facility] 06-14-2022 12:57-0400 Respiratory rate 16 /min Ayala SALAM [facility] 06-14-2022 12:57-0400 Systolic blood pressure 118 mm[Hg] Ayala SALAM [facility] 06-06-2022 10:13-0400 Blood Pressure Location TRUDY ADRIAN [facility] 06-06-2022 10:13-0400 Diastolic blood pressure 88 mm[Hg] TRUDY NGUYỄN [facility] 06-06-2022 10:13-0400 Heart rate 74 /min TRUDY NGUYỄN [facility] 06-06-2022 10:13-0400 Systolic blood pressure 144 mm[Hg] TRUDY NGUYỄN [facility] 05-23-2022 10:41-0400 Blood Pressure Location TRUDY NGUYỄN [facility] 05-23-2022 10:41-0400 Diastolic blood pressure 85 mm[Hg] TRUDY NGUYỄN [facility] 05-23-2022 10:41-0400 Heart rate 72 /min TRUDY NGUYỄN [facility] 05-23-2022 10:41-0400 Systolic blood pressure 127 mm[Hg] TRUDY NGUYỄN [facility] 04-11-2022 11:01-0500 Blood Pressure Location TRUDY NGUYỄN [facility] 04-11-2022 11:01-0500 Diastolic blood pressure 88 mm[Hg] TRUDY NGUYỄN [facility] 04-11-2022 11:01-0500 Heart rate 71 /min TRUDY NGUYỄN [facility] 04-11-2022 11:01-0500 Systolic blood pressure 146 mm[Hg] TRUDY NGUYỄN [facility] 03-19-2022 16:35-0500 Body height 163.83 cm Padmini Sam Other [employer] Other 03-19-2022 16:35-0500 Body mass index (BMI) [Ratio] 27.37 kg/m2 Padmini Sam Other [employer] Other 03-19-2022 16:35-0500 Body temperature 98.9 [degF] Padmini Sam Other [employer] Other 03-19-2022 16:35-0500 Body weight 73.48 kg Padmini Sam Other [employer] Other 03-19-2022 16:35-0500 Respiratory rate 18 /min Padmini Sam Other [employer] Other 03-19-2022 16:35-0500 SaO2% (BldA) [Mass fraction] 96 % Padmini Sam Other [employer] Other 03-13-2022 10:12-0500 Diastolic blood pressure 59 mm[Hg] MD Shaikh Thompson Work Phone: [facility] 03-13-2022 10:12-0500 Heart rate 77 /min MD Shaikh Thompson Work Phone: [facility] 03-13-2022 10:12-0500 Respiratory rate 18 /min MD Shaikh Thompson Work Phone: [facility] 03-13-2022 10:12-0500 SaO2% (BldA) [Mass fraction] 98 % MD Shaikh Thompson Work Phone: [facility] 03-13-2022 10:12-0500 Systolic blood pressure 93 mm[Hg] MD Shaikh Thompson Work Phone: [facility] 03-13-2022 07:54-0500 Body height 162.56 cm MD Shaikh Thompson Work Phone: [facility] 03-13-2022 07:54-0500 Body temperature 98 [degF] MD Shaikh Thompson Work Phone: [facility] 03-13-2022 07:54-0500 Body weight 73.48 kg MD Shaikh Thompson Work Phone: [facility] 03-12-2022 08:58-0500 Body height 160.02 cm Dunbar Felysarah Work Phone: [facility] 250 DO Work Phone: 03-12-2022 08:58-0500 Body mass index (BMI) [Ratio] 28.7 kg/m2 Shaikh Jabierwad Work Phone: [facility] 250 DO Work Phone: 03-12-2022 08:58-0500 Body surface area Derived from formula 1.77 m2 Shaikh Jabiergeovanna Work Phone: [facility] 250 DO Work Phone: 03-12-2022 08:58-0500 Body weight 73.48 kg Shaikh Jabierwad Work Phone: [facility] 250 DO Work Phone: 03-12-2022 08:58-0500 Diastolic blood pressure 78 mm[Hg] Shaikh Jabierwad Work Phone: [facility] 250 DO Work Phone: 03-12-2022 08:58-0500 Heart rate 66 /min Shaikh Felywwad Work Phone: [facility] 250 DO Work Phone: 03-12-2022 08:58-0500 Systolic blood pressure 110 mm[Hg] Shaikh Felywwad Work Phone: [facility] 250 DO Work Phone: 01-23-2022 12:00-0500 72 1 Shaikh Felywwad Work Phone: [facility] [address] [place] Work Phone: Comment on above: [id number] 11-09-2021 13:26-0400 Body height 160.02 cm Shaikh Felywwad Work Phone: [facility] 600 DO Work Phone: 11-09-2021 13:26-0400 Body mass index (BMI) [Ratio] 27.83 kg/m2 Shaikh Felywwad Work Phone: [facility] 600 DO Work Phone: 11-09-2021 13:26-0400 Body surface area Derived from formula 1.75 m2 Shaikh Felywwad Work Phone: [facility] 600 DO Work Phone: 11-09-2021 13:26-0400 Body weight 71.27 kg Shaikh Felywwad Work Phone: [facility] 600 DO Work Phone: 11-09-2021 13:26-0400 Diastolic blood pressure 82 mm[Hg] Dunbar Fawwad Work Phone: [facility] 600 DO Work Phone: 11-09-2021 13:26-0400 Heart rate 64 /min Shaikh Jabierwad Work Phone: [facility] 600 DO Work Phone: 11-09-2021 13:26-0400 Systolic blood pressure 128 mm[Hg] Shaikh Jabierwad Work Phone: [facility] 600 DO Work Phone: 09-18-2021 10:26-0400 Diastolic blood pressure 80 mm[Hg] Shaikh Felywwad Work Phone: [facility] 250 DO Work Phone: 09-18-2021 10:26-0400 Systolic blood pressure 178 mm[Hg] Shaikh Felywwad Work Phone: [facility] 250 DO Work Phone: 09-18-2021 10:19-0400 Body height 162.56 cm Shaikh Jabierwad Work Phone: [facility] 250 DO Work Phone: 09-18-2021 10:19-0400 Body mass index (BMI) [Ratio] 26.09 kg/m2 Shaikh Jabierwad Work Phone: [facility] 250 DO Work Phone: 09-18-2021 10:19-0400 Body surface area Derived from formula 1.74 m2 Shaikh Jabierwad Work Phone: [facility] 250 DO Work Phone: 09-18-2021 10:19-0400 Body weight 68.95 kg Shaikh Felywwad Work Phone: [facility] 250 DO Work Phone: 09-18-2021 10:19-0400 Diastolic blood pressure 80 mm[Hg] Shaikh Donna Work Phone: [facility] 250 DO Work Phone: 09-18-2021 10:19-0400 Heart rate 60 /min Shaikh Donna Work Phone: [facility] 250 DO Work Phone: 09-18-2021 10:19-0400 Systolic blood pressure 180 mm[Hg] Shaikh Donna Work Phone: [facility] 250 DO Work Phone: 08-23-2021 14:00-0400 Body temperature 98.9 [degF] Linn Missler Other [employer] Other 08-23-2021 14:00-0400 Body weight 66.13 kg Linn Missler Other [employer] Other 08-23-2021 14:00-0400 Diastolic blood pressure 87 mm[Hg] Linn Missler Other [employer] Other 08-23-2021 14:00-0400 Respiratory rate 18 /min Linn Missler Other [employer] Other 08-23-2021 14:00-0400 SaO2% (BldA) [Mass fraction] 96 % Linn Missler Other [employer] Other 08-23-2021 14:00-0400 Systolic blood pressure 137 mm[Hg] Linn Missler Other [employer] Other 08-17-2021 12:00-0400 Diastolic blood pressure 94 mm[Hg] PHYSICIAN NO [facility] 08-17-2021 12:00-0400 Heart rate 78 /min PHYSICIAN [facility] 08-17-2021 12:00-0400 Respiratory rate 18 /min PHYSICIAN NO [facility] 08-17-2021 12:00-0400 SaO2% (BldA) [Mass fraction] 95 % PHYSICIAN NO [facility] 08-17-2021 12:00-0400 Systolic blood pressure 152 mm[Hg] PHYSICIAN [facility] 08-17-2021 08:00-0400 Body temperature 97.5 [degF] PHYSICIAN [facility] 08-17-2021 05:57-0400 Body weight 75.8 kg PHYSICIAN [facility] 08-17-2021 00:44-0400 Inhaled oxygen flow rate 2 L/min PHYSICIAN [facility] 08-16-2021 14:43-0400 Body height 162.56 cm PHYSICIAN [facility] 08-16-2021 14:43-0400 Body mass index (BMI) [Ratio] 25.6 kg/m2 PHYSICIAN NO [facility] Encounters Encounter Date Encounter Type Care Provider Facility Start: 09-18-2024 ambulatory Dereck Horowitz ty:[facility] Start: 08-13-2024 End: 08-13-2024 Clinisync Result Encounter Generic External Data Provider [facility] External Department Unsolicited Start: 08-13-2024 End: 08-13-2024 Clinisync Result Encounter Generic External Data Provider [facility] External Department Unsolicited Start: 08-13-2024 End: 08-13-2024 ambulatory [facility] Start: 08-13-2024 End: 08-13-2024 Subsequent hospital visit by physician Elsa Hill Echo/Vasc Room 2 [facility] Comment on above: Diminished pulses in lower extremity; Intermittent claudication Start: 07-14-2024 End: 07-14-2024 Admission to same day surgery center Juany Cochran DO Work Phone: [facility] Interpre[facility] Work Phone: Start: 07-14-2024 End: 07-14-2024 ambulatory Juany Cochran DO Work Phone: [facility] Work Phone: Start: 07-10-2024 End: 07-10-2024 Patient encounter procedure Juany Cochran DO Work Phone: [facility] Work Phone: Start: 07-10-2024 End: 07-10-2024 ambulatory Juany Cochran DO Work Phone: [facility] Work Phone: Start: 07-10-2024 Encounter for preprocedural laboratory examination Jaycob Millan [facility] Start: 07-02-2024 End: 07-06-2024 Clinisync Result Encounter Generic External Data Provider [facility] External Department Unsolicited Start: 07-02-2024 End: 07-06-2024 Clinisync Result Encounter Generic External Data Provider [facility] External Department Unsolicited Start: 07-02-2024 End: 07-02-2024 Subsequent hospital visit by physician Elsa [id number] [facility] Comment on above: Angina pectoris Start: 07-02-2024 End: 07-02-2024 ambulatory [facility] Start: 07-02-2024 End: 07-02-2024 ambulatory [facility] Start: 06-02-2024 End: 06-02-2024 ambulatory [facility] Start: 06-02-2024 End: 06-02-2024 Office outpatient visit 25 minutes Jaycob Goldstein MD Work Phone: [facility] Comment on above: Angina pectoris; Diminished pulses in lower extremity; Intermittent claudication (CMS-HCC); Primary hypertension; Mixed hyperlipidemia; Stage 3b chronic kidney disease (Multi); Chronic obstructive pulmonary disease, unspecified COPD type (Multi); Current smoker; BMI 25.0-25.9,adult Start: 05-04-2024 End: 05-04-2024 ambulatory Dereck GROVES Facility:[id number] Start: 04-21-2024 End: 04-21-2024 ambulatory Dereck R GROVES Facility:[facility] Start: 04-21-2024 End: 04-21-2024 Patient encounter procedure Dereck Young GROVES [facility] Start: 01-09-2024 End: 03-10-2024 Pre-admission assessment Dereck Hannah YANELI [facility] Start: 01-09-2024 End: 06-02-2024 ambulatory Juany C Sammie Facility:[facility] Start: 01-09-2024 End: 06-02-2024 Recurring Juany C Sammie [facility] Start: 01-05-2024 End: 01-05-2024 ambulatory Juany C Sammie Facility:[facility] Start: 01-05-2024 End: 01-05-2024 Patient encounter procedure Juany C Sammie [facility] Start: 01-02-2024 End: 03-04-2024 Pre-admission assessment Dereck Young YANELI [facility] Start: 01-01-2024 End: 01-01-2024 ambulatory Dereck Hannah GROVES Facility:[facility] Start: 01-01-2024 End: 01-01-2024 Patient encounter procedure Dereck R YANELI [facility] Start: 11-29-2023 End: 11-29-2023 Emergency department patient visit Gabby De Oliveira Facility:[facility] Start: 10-11-2023 End: 10-11-2023 Clinisync Result Encounter Shaikh Donna FINNEY Work Phone: [facility] External Department Unsolicited Start: 10-11-2023 End: 10-11-2023 Clinisync Result Encounter Shaikh Donna FINNEY Work Phone: [facility] External Department Unsolicited Start: 08-12-2023 End: 08-12-2023 ambulatory SHAIKH DONNA Not Available Start: 07-30-2023 End: 07-30-2023 ambulatory SHAIKH DONNA Not Available Start: 06-17-2023 End: 06-17-2023 ambulatory SHAIKH DONNA Not Available Start: 06-04-2023 End: 06-04-2023 ambulatory ROSIE BLANCHARD Not Available Start: 06-03-2023 End: 06-03-2023 ambulatory TRUDY ADRIAN Facility:[facility] Start: 06-03-2023 End: 06-03-2023 Patient encounter procedure TRUDY ADRIAN [facility] Start: 05-17-2023 End: 05-17-2023 ambulatory ROSIE BLANCHARD Not Available Start: 05-13-2023 End: 05-13-2023 ambulatory SHAIKH DONNA Not Available Start: 03-12-2023 End: 03-12-2023 ambulatory MD Shaikh Thompson Work Phone: [facility] Work Phone: Start: 03-12-2023 End: 03-12-2023 Patient encounter procedure MD Shaikh Thompson Work Phone: [facility] [place] Work Phone: Start: 02-19-2023 End: 02-19-2023 ambulatory SHAIKH DONNA Not Available Start: 02-12-2023 End: 02-14-2023 Evaluation and management of inpatient MD Shaikh Thompson Work Phone: [facility] Work Phone: Start: 02-10-2023 End: 02-10-2023 Lab Drop off Jaxson Johnson [facility] Start: 02-10-2023 End: 02-10-2023 Emergency department patient visit Gabby De Oliveira [facility] Start: 02-10-2023 End: 02-10-2023 Patient encounter procedure Jaxson Johnson [facility] Start: 01-30-2023 End: 01-30-2023 Patient encounter procedure TRUDY ADRIAN [facility] Start: 10-29-2022 Orders Only Debra naik [...] End: 10-15-2022 Lab Drop off Damion Cheek [facility] Start: 10-15-2022 End: 10-15-2022 Patient encounter procedure Damion Cheek [facility] Start: 10-15-2022 Rx Renewal Shaikh Donna Work Phone: [facility] 600 DO Work Phone: Start: 10-09-2022 End: 10-10-2022 ambulatory Rosie Harris DO Work Phone: [facility] Start: 10-09-2022 End: 10-09-2022 Patient encounter procedure Gurmeet Ojeda MD Work Phone: [facility] Comment on above: Stage 3 chronic kidn ey disease, unspecified whether stage 3a or 3b CKD (HCC) (Primary Dx); Tobacco abuse; Hypertension, renal disease; Mixed hyperlipidemia; Atrophic kidney, acquired Start: 08-23-2022 End: 08-24-2022 ambulatory DEBRA FISHMAN [facility] Start: 08-09-2022 End: 08-09-2022 Patient encounter procedure Gurmeet Ojeda MD Work Phone: [facility] Comment on above: Stage 3b chronic kid domingo disease (HCC) (Primary Dx); Hypertension, unspecified type; Orthostatic hypotension; Alkalosis; Hypercholesteremia Start: 08-09-2022 End: 08-10-2022 ambulatory Debra Fishman MD Work Phone: [facility] Start: 06-19-2022 ambulatory SHAIKH Enrique THOMPSON Facilit y:[facility] Start: 06-14-2022 End: 06-14-2022 Patient encounter procedure Jamie BILLS [facility] Start: 06-12-2022 End: 06-13-2022 ambulatory SHAIKH Enrique THOMPSON Facility:[facility] Start: 06-06-2022 End: 06-06-2022 Patient encounter procedure TRUDY ADRIAN [facility] [place] Start: 05-23-2022 End: 05-23-2022 Patient encounter procedure TRUDY ADRIAN [facility] [place] Start: 04-30-2022 End: 05-01-2022 ambulatory SHAIKH Enrique THOMPSON Facility:[facility] Start: 04-11-2022 End: 04-11-2022 Patient encounter procedure TRUDY ADRIAN [facility] Start: 04-05-2022 End: 04-05-2022 ambulatory Kevyn Sharma Other [employer] Other Start: 04-05-2022 Telephone encounter Kevyn Carmichael [facility] [employer] Start: 03-27-2022 End: 03-28-[address] MARQUEZ BEAL Facility:[facility] Start: 03-19-2022 End: 03-19-2022 ambulatory Padmini Sam Other [employer] Other Start: 03-19-2022 Office outpatient vi sit 15 minutes Padmini Sam [facility] Start: 03-13-2022 End: 03-13-2022 Admission to same day surgery center MD Shaikh Thompson Work Phone: [facility] Work Phone: Start: 03-13-2022 End: 03-13-2022 ambulatory MD Shaikh Thompson Work Phone: [facility] Work Phone: Start: 03-12-2022 Office outpatient vi sit 25 minutes Shaikh Donna Work Phone: [facility] 250 DO Work Phone: Start: 02-26-2022 End: 02-26-[address] XAVIER STAFFORD . Facility:[facility] Start: 02-19-2022 End: 02-20-2022 ambulatory SHAIKH Enrique THOMPSON Facility:[facility] Start: 01-29-2022 Chart Update Shaikh Donna Work Phone: [facility] 600 DO Work Phone: Start: 01-23-[address] Marquez Beal II Facility:[id number] Start: 01-23-2022 Patient encounter procedure Shaikh Donna Work Phone: [facility] 250 DO Work Phone: Start: 11-16-2021 Rx Renewal Shaikh Donna Work Phone: [facility] 600 DO Work Phone: Start: 11-09-2021 ambulatory Marquez Beal II Facility: Start: 10-30-2021 End: 10-31-2021 ambulatory SHAIKH Enrique THOMPSON Facility:[facility] Start: 10-24-2021 Chart Update Shaikh Donna Work Phone: [facility] 250 DO Work Phone: Start: 10-17-[address] Marquez Beal II Facility:[id number] Start: 09-18-2021 ambulatory Marquez Beal II Facility: Start: 09-18-2021 Office outpatient vi sit 25 minutes Shaikh Donna Work Phone: [facility] 250 DO Work Phone: Start: 09-18-2021 End: 09-18-2021 Patient encounter procedure PHYSICIAN AXEL [facility] [place] Start: 09-18-2021 ambulatory Marqeuz Beal II Faci lity:[id number] Start: 08-23-2021 ([facility] CHUCK) [facility] Transition of Care Linn Byrne [facility] Start: 08-23-2021 End: 08-23-2021 ambulatory Linn Byrne Other [facility] [employer] Other Start: 08-23-2021 End: 08-23-2021 Patient encounter procedure PHYSICIAN AXEL [facility] Start: 08-17-2021 End: 08-17-2021 Patient encounter procedure PHYSICIAN NO [facility] Start: 08-17-2021 ambulatory Marquez Dianeric vinay Beal II Facility:[id number] Start: 08-16-[address] Jaycob Goldstein Facility:[id number] Start: 08-15-2021 ambulatory Marquez Beal II Facility:[id number] Start: 08-14-2021 ambulatory Marquez Beal II Facility:[id number] Start: 08-13-2021 End: 08-17-2021 Evaluation and management of inpatient PHYSICIAN AXEL [facility] Start: 08-13-2021 End: 08-13-2021 ambulatory Marquez Beal II Facility:[id number] Start: 12-08-2020 End: 12-11-2020 ambulatory [facility] Start: 12-08-2020 End: 12-10-2020 [facility] Comment on above: Encounter for screen ing mammogram for malignant neoplasm of breast Procedures Date Procedure Procedure Detail Performing Clinician Start: 08-13-2024 VASC LAB PVR W/O EXERCISE Generic External Data Provider Start: 08-13-2024 Non-invasive physiol ogic study extremity 3 levls Jaycob Goldstein MD Work Phone: Start: 07-14-2024 CL LHC & COR Angio Elys e Sammie DO Work Phone: Start: 07-02-2024 CTA Heart and Larry ry arteries WO and W contrast IV Generic External Data Provider Start: 10-11-2023 ALL CBC WITH AUTO DIFF Shaikh Donna FINNEY Work Phone: Start: 02-20-2023 Mammography Shaikh Jabier austin MD Work Phone: Start: 02-12-2023 Investigation of tra nsfusion reaction MD Shaikh Thompson Work Phone: Start: 02-12-2023 Plain chest X-ray MD Sly Thompson Work Phone: Start: 10-09-2022 Urnls dip stick/tabl et reagent auto microscopy Bulk Order Provider Start: 08-09-2022 Urnls dip stick/tabl et rgnt auto w/o microscopy Bulk Order Provider Start: 03-13-2022 End: 03-13-2022 Colonoscopy MD Shaikh Thompson Work Phone: Start: 02-26-2022 Mammography Jaycob perez MD Work Phone: Start: 02-18-2022 Colonoscopy Shaikh Jabier [...] Treatment Date Care Activity Detail Author Start: 03-13-2032 Screening for malign ant neoplasm of colon [facility] Start: 02-19-2032 Screening for malign ant neoplasm of colon [facility] Start: 01-15-2025 End: 01-15-2025 Patient encounter procedure 01/15/2025 10:00 AM EST Office Visit [place] [address] [place] [address] Jaycob Goldstein MD [address] [place] [address] [facility] Start: 11-20-2024 Screening for malign ant neoplasm of cervix [facility] Start: 10-19-2024 Influenza vaccination Influenz a Vaccine (Season Ended) [facility] Start: 08-13-2024 End: 08-13-2024 Patient encounter procedure 08/13/2024 9:45 AM EDT Appointment [facility] [address] [facility] [address] [place] [address] [facility] Start: 07-14-2024 End: 07-14-2024 [facility] Start: 06-02-2024 End: 06-02-2025 Basic metabolic 2000 panel - Serum or Plasma Basic Metabolic Panel Lab Routine Angina pectoris Primary hypertension Stage 3b chronic kidney disease (Multi) Expected: 06/02/2024 (Approximate), Expires: 06/02/2025 [facility] Work Phone: Comment on above: Expected: 06/02/2024 (Approximate), Expires: 06/02/2025 Start: 06-02-2024 End: 06-02-2025 CT for calcium scoring WO contrast and CTA W contrast IV Heart and coronary arteries CT angio coronary arteries w C EVAL of cardiac structure morphology Imaging Routine Angina pectoris Expected: 06/02/2024 (Approximate), Expires: 06/02/2025 [facility] Service Area Work Phone: Comment on above: Expected: 06/02/2024 (Approximate), Expires: 06/02/2025 Start: 06-02-2024 End: 06-02-2026 Vascular US PVR Without Exercise Vascular US PVR Without Exercise Vascular Ultrasound Routine Diminished pulses in lower extremity Intermittent claudication (CMS-HCC) Expected: 06/02/2024 (Approximate), Expires: 06/02/2026 [facility] Work Phone: Comment on above: Expected: 06/02/2024 (Approximate), Expires: 06/02/2026 Start: 02-21-2024 Screening for malign ant neoplasm of breast Mammogram [facility] Start: 11-20-2023 End: 11-20-2023 Patient encounter procedure 11/20/2023 5:30 PM EDT Office Visit [facility] [address] [place] [address] [place], ACCESS TECH [address] [place] [address] [facility] Start: 10-20-2023 COVID-19 Vaccine ( season) COVID-19 Vaccine () [facility] Start: 10-20-2023 COVID-19 Vaccine ( season) COVID-19 Vaccine ( season) [facility] Start: 10-20-2023 Influenza vaccination Influenza Vacc ine (#1) [facility] Start: 10-10-2023 End: 12-10-2023 Renal function 2000 panel - Serum or Plasma RENAL FUNCTION PANEL Lab Routine Stage 3 chronic kidney disease, unspecified whether stage 3a or 3b CKD (HCC) Expected: 10/10/2023, Expires: 12/10/2023 [facility] Work Phone: Comment on above: Expected: 10/10/2023 , Expires: 12/10/2023 Start: 08-24-2023 SERUM CREATININE SERUM CREATININE [facility] Start: 03-12-2023 FUV, Provider: Marquez Beal, Status: Pen, Time: 11:00 AM FUV, Provider: Marquez Beal, Status: Pen, Time: 11:00 AM -[place] [address] DO Work Phone: Start: 02-26-2023 Screening for malign ant neoplasm of breast Mammogram [facility] Start: 02-14-2023 [facility] Start: 02-12-2023 Microbial culture of sputum [facility] Start: 02-12-2023 Aerobic microbial culture Aerobic Cu lture [facility] Start: 02-12-2023 Hospital admission [facility] Start: 02-12-2023 [facility] Start: 10-19-2022 Influenza vaccination [facility] Start: 08-09-2022 End: 10-09-2022 25-hydroxyvitamin D3 [Mass/volume] in Serum or Plasma VITAMIN D 25 HYDROXY Lab Routine Stage 3b chronic kidney disease (HCC) Expected: 08/09/2022, Expires: 10/09/2022 [facility] Work Phone: Comment on above: Expected: 08/09/2022 , Expires: 10/09/2022 Start: 08-09-2022 End: 10-09-2022 MONOCLONAL PROTEIN, SERUM (BLOOD) MONOCLONAL PROTEIN, SERUM (BLOOD) Lab Routine Stage 3b chronic kidney disease (HCC) Expected: 08/09/2022, Expires: 10/09/2022 [facility] Work Phone: Comment on above: Expected: 08/09/2022 , Expires: 10/09/2022 Start: 08-09-2022 End: 10-09-2022 Renal function 2000 panel - Serum or Plasma RENAL FUNCTION PANEL Lab Routine Stage 3b chronic kidney disease (HCC) Expected: 08/09/2022, Expires: 10/09/2022 [facility] Work Phone: Comment on above: Expected: 08/09/2022 , Expires: 10/09/2022 Start: 03-13-2022 [facility] Start: 03-12-2022 FUV, Provider: Maruqez Beal, Status: Pen, Time: 8:30 AM FUV, Provider: Marquez Beal, Status: Molina, Time: 8:30 AM -[facility] 250 DO Work Phone: Start: 02-18-2022 DEPRESSION ASSESSMENT DEPRESSION ASS ESSMENT [facility] Start: 12-21-2021 FUV, Provider: Marquez Beal, Status: Pen, Time: 12:50 PM FUV, Provider: Marquez Beal, Status: Pen, Time: 12:[address] [facility] Work Phone: Start: 12-08-2021 Mammography MAMMOGRAM [facility] Start: 11-22-2021 STRESS NUC, Provider : TRENA HHVI NUCLEAR 01,[id number], Status: Pen, Time: 12:00 PM STRESS NUC, Provider: TRENA HHVI NUCLEAR 01,[id number], Status: Pen, Time: 12:[address] [facility] Work Phone: Start: 11-22-2021 NURSEVST, Provider: KAYLEN ANAND SUPPLY AIDE 1,[id number], Status: Pen, Time: 10:30 AM NURSEVST, Provider: KAYLEN ANAND SUPPLY AIDE 1,[id number], Status: Pen, Time: 10:30 AM [facility] 600 DO Work Phone: Start: 11-09-2021 FUV, Provider: Marquez Beal, Status: Pen, Time: 1:10 PM FUV, Provider: Marquez Beal, Status: Pen, Time: 1:10 PM [facility] Work Phone: Start: 10-17-2021 STRESS IVAN, Provider : TRENA HHVI NUCLEAR 01,[id number], Status: Pen, Time: 2:00 PM STRESS IVAN, Provider: TRENA HHVI NUCLEAR 01,[id number], Status: Pen, Time: 2:00 PM [facility] 250 DO Work Phone: Start: 08-17-2021 [facility] Work Phone: Start: 08-14-2021 Referral to neurologist [facility] Work Phone: Start: 08-14-2021 Blood culture for bacteria, including anaerobic screen Blood Culture [facility] Start: 08-14-2021 [facility] Work Phone: Start: 08-13-2021 Ultrasonography of R ight and Left Heart, Transesophageal Ultrasonography of Right and Left Heart, Transesophageal [facility] Start: 08-13-2021 Hospital admission [facility] Work Phone: Start: 08-13-2021 Referral to music store manager [facility] Work Phone: Start: 03-27-2021 Colonoscopy COLONOSCOPY [facility] Start: 03-27-2021 COLORECTAL CANCER SCREENING COLORECTAL CANCER SCREENING [facility] Start: 03-11-2021 COVID-19 VACCINE (4 - Booster for Pfizer series) COVID-19 VACCINE (4 - Booster for Pfizer series) [facility] Start: 03-11-2021 COVID-19 VACCINE (4 - Pfizer series) COVID-19 VACCINE (4 - Pfizer series) [facility] Start: 02-07-2021 HPV TESTING HPV TESTING [facility] Start: 02-07-2021 PAP TESTING PAP TESTING [facility] Start: 10-19-2020 Influenza vaccination Flu vaccine (# 1) [employer] Phone: Start: 03-14-2017 HEMOGLOBIN/HEMATOCRIT HEMOGLOBIN/HEM ATOCRIT [facility] Start: 2012 Screening for malign ant neoplasm of breast Breast cancer screen [employer] Phone: Start: 2012 Shingles Vaccine (1 of 2) Herring gles Vaccine (1 of 2) [employer] Phone: Start: 2012 SHINGRIX VACCINE (1 of 2) HERRING GRIX VACCINE (1 of 2) [facility] Start: 2012 Zoster Vaccines (1 of 2) Zoster Vacc maira (1 of 2) [facility] Start: 05-12-2007 COLOGUARD (FIT-DNA) COLOGUARD (FIT-D NA) [facility] Start: 05-12-[address] COLONOGRAPHY [facility] Start: 05-12-2007 DIABETES SCREEN DIABETES SCREEN [facility] Start: 05-12-2007 FECAL OCCULT BLOOD FECAL OCCULT BLOO D [facility] Start: 05-12-2007 LIPID SCREEN LIPID SCREEN [facility] Start: 05-12-2007 Screening for malign ant neoplasm of colon Colon cancer screen colonoscopy [facility] Work Phone: Start: 05-12-2007 SIGMOIDOSCOPY SIGMOIDOSCOPY [facility] Start: 2002 Lipid panel Lipid screen [facility] Work Phone: Start: 1992 Screening for malign ant neoplasm of cervix [facility] Start: 1984 DTaP/Tdap/Td Vaccine s (1 - Tdap) DTaP/Tdap/Td Vaccines (1 - Tdap) [facility] Start: 05-12-1983 Screening for malign ant neoplasm of cervix [facility] Start: 1981 DTaP/Tdap/Td vaccine (1 - Tdap) DTaP/Tdap/Td vaccine (1 - Tdap) [facility] [employer] Phone: Start: 1981 Urine microalbumin profile DTAP,TDAP,TD (1 - Tdap) [facility] Start: 1981 Urine screening for protein CKD: Urine Protein Screening [facility] Start: 1980 ANNUAL PCP TEAM SHARED SERVICES MANAGER ZEFERINO DISEASE VISIT ANNUAL PCP TEAM CHRONIC DISEASE VISIT [facility] Start: 1980 Diabetes mellitus screening Diabetes Screening [facility] Start: 1980 HEPATITIS C SCREENING HEPATITIS C [facility] Start: 1980 Hepatitis C screening Hepatitis C [facility] Start: 1980 HIV SCREENING HIV SCREENING [facility] Start: 1977 HIV screening HIV screen [facility] Work Phone: Start: 05-12-1963 MMR Vaccines (1 of 1 - Standard series) MMR Vaccines (1 of 1 - Standard series) [facility] Start: 1962 Hepatitis C screening Hepatitis C [facility] Work Phone: Start: 1962 HIV screening HIV Screening [facility] Start: 1962 Lipid panel Lipid Panel [facility] Start: 1962 Screening for malign ant neoplasm of colon [facility] Start: 1962 Skin Cancer Screening Skin Cancer [facility] Start: 1962 Yearly Adult Physical Yearly Adult [facility] Activated protein C resistance assay [facility] Work Phone: Antithrombin [Units/volume] in Platelet poor plasma by Chromogenic method [facility] Work Phone: aPTT.lupus sensitive (LA screen) [facility] Work Phone: aPTT.lupus sensitive W excess phospholipid actual/Normal (normalized LA confirm) [facility] Work Phone: aPTT.lupus sensitive/aPTT.lupus sensitive W excess phospholipid (screen to confirm ra [facility] Work Phone: Beta 2 glycoprotein 1 IgG Ab [Units/volume] in Serum [facility] Work Phone: Beta 2 glycoprotein 1 IgM Ab [Units/volume] in Serum [facility] Work Phone: Cardiolipin IgG Ab [Units/volume] in Serum by Immunoassay [facility] Work Phone: Cardiolipin IgM Ab [Units/volume] in Serum by Immunoassay [facility] Work Phone: End: 07-02-2024 CTA Heart and Coronary arteries WO and W contrast IV [facility] Service Area Work Phone: Comment on above: Once for 1 Occurrenc es starting 07/02/2024 until 07/02/2024 dRVVT (LA screen) [facility] Work Phone: F2 gene mutations fo und [Identifier] in Blood or Tissue by Molecular genetics method [employer] [facility] Work Phone: Homocysteine [Moles/volume] in Serum or Plasma [facility] Work Phone: Lupus anticoagulant [Interpretation] in Platelet poor plasma [facility] Work Phone: End: 12-08-2020 BERTA KYARA DIGITAL SCREEN SELF REFERRAL W OR WO CAD BILATERAL BERTA KYARA DIGITAL SCREEN SELF REFERRAL W OR WO CAD BILATERAL Imaging Routine Encounter for screening mammogram for malignant neoplasm of breast 1 Occurrences starting 12/08/2020 until 12/08/2020 [facility] Work Phone: Comment on above: 1 Occurrences starti ng 12/08/2020 until 12/08/2020 BERTA KYARA DIGITAL SCR EEN SELF REFERRAL W OR WO CAD BILATERAL BERTA KYARA DIGITAL SCREEN SELF REFERRAL W OR WO CAD BILATERAL Imaging Routine Encounter for screening mammogram for malignant neoplasm of breast 12/08/2020 1:30 PM EDT [facility] Work Phone: Patient Education [facility] Work Phone: Patient referral [facility] Work Phone: Plasminogen assay [facility] Work Phone: Protein C actual/nor mal in Platelet poor plasma by Chromogenic method [facility] Work Phone: Protein S Free Ag [Units/volume] in Platelet poor plasma by Immunoassay [facility] Work Phone: Renin [Enzymatic activity/volume] in Plasma [facility] Work Phone: End: 09-08-2023 US KIDNEY/BLADDER US KIDNEY/BLADDER Radiology Routine Stage 3b chronic kidney disease (HCC) 1 Occurrences starting 08/09/2022 until 09/08/2023 [facility] Work Phone: Comment on above: 1 Occurrences starti ng 08/09/2022 until 09/08/2023 Vascular US PVR With out Exercise Vascular US PVR Without Exercise Vascular Ultrasound Routine Diminished pulses in lower extremity Intermittent claudication 08/13/2024 10:42 AM EDT [facility] Service Area Work Phone: [facility] Immunizations Immunization Date Immunization Notes Care Provider Fa casper 01-18-2024 Pneumococcal conjuga te vaccine, 20-valent (PREVNAR 20) Jaycob Goldstein MD Work Phone: [facility] Work Phone: 01-18-2024 RSV, 60 Years And Ol katerina (AREXVY) Jaycob Goldstein MD Work Phone: [facility] 06-22-2022 tuberculin skin test ; purified protein derivative solution, intradermal Shaikh Donna FINNEY Work Phone: [facility] 01-14-2021 Pfizer-BioNTech COVID-19 Vacc 30 MCG/0.3ML Intramuscular Suspension Shaikh Donna Work Phone: [facility] Comment on above: Result Comment: 2022: [id number] 06-25-2020 Pfizer-BioNTech COVID-19 Vacc 30 MCG/0.3ML Intramuscular Suspension Shaikh Donna Work Phone: [facility] Comment on above: Reason for Medicatio n: Prophylaxis 06-04-2020 Pfizer-BioNTech COVID-19 Vacc 30 MCG/0.3ML Intramuscular Suspension Shaikh Donna Work Phone: [facility] Comment on above: Reason for Medicatio n: Prophylaxis Payers Date Payer Category Payer Self-pay [id number] 2024 Unknown [id number] 2023 Unknown [id number] 2022 Medicaid [id number] 2022 Unknown 1962 Unknown [id number] 2.16.8 40.1.759240.3.579.2.1068 1962 Unknown [id number] 2.16.8 40.1.331225.3.579.2.1068 1962 Unknown [id number] 2.16. 840.1.507019.3.579.2.356 1962 Unknown [id number] 2.16. 840.1.917930.3.579.2.356 1962 Unknown [id number] 2.16. 840.1.355541.3.579.2.356 1962 Unknown [id number] 2.16. 840.1.501628.3.579.2.356 1962 Unknown [id number] 2.16. 840.1.536115.3.579.2.356 1962 Unknown [id number] 2.16. 840.1.552230.3.579.2.356 1962 Unknown [id number] 2.16. 840.1.125384.3.579.2.356 1962 Unknown [id number] 2.16. 840.1.679970.3.579.2.356 1962 Unknown [id number] 2.16. 840.1.565966.3.579.2.356 1962 Unknown [id number] 2.16. 840.1.585466.3.579.2.356 1962 Unknown [id number] 2.16. 840.1.297164.3.579.2.356 1962 Unknown [id number] 2.16.84 0.1.645000.3.579.2.593 1962 Unknown [id number] 2.16.84 0.1.026894.3.579.2.593 1962 Unknown [id number] 2.16.84 0.1.164860.3.579.2.593 1962 Unknown [id number] 2.16.84 0.1.733613.3.579.2.593 1962 Unknown [id number] 2.16.84 0.1.647150.3.579.2.593 1962 Unknown [id number] 2.16.84 0.1.790178.3.579.2.593 1962 Unknown [id number] 2.16.84 0.1.688169.3.579.2.593 1962 Unknown [id number] 2.16.84 0.1.629194.3.579.2.593 1962 Unknown [id number] 2.16.84 0.1.641509.3.579.2.1258 1962 Unknown [id number] 2.16.84 0.1.628304.3.579.2.1259 1962 Unknown [id number] 2.16.84 0.1.895127.3.579.2.1258 1962 Unknown [id number] 2.16.84 0.1.902359.3.579.2.1258 1962 Unknown [id number] 2.16.84 0.1.644713.3.579.2.1258 1962 Unknown [id number] 2.16.84 0.1.575873.3.579.2.9 1962 Unknown [id number] 2.16.840 .1.994101.3.579.2.1258 1962 Unknown [id number] 2.16.8 40.1.590518.3.579.2. 1962 Unknown [id number] 2.16.8 40.1.622057.3.579.2. 1962 Unknown [id number] 2.16.8 40.1.638225.3.579.2.72 1962 Unknown [id number] 2.16.8 40.1.366932.3.579.2.72 1962 Unknown [id number] 2.16.8 40.1.069017.3.579.2.72 1962 Unknown [id number] 2.16.8 40.1.073364.3.579.2. 1962 Unknown [id number] 2.16.8 40.1.316088.3.579.2.72 1962 Unknown [id number] 2.16.8 40.1.494449.3.579.2. 1962 Unknown [id number] 2.16.8 40.1.579434.3.579.2.727 1962 Unknown [id number] 2.16.8 40.1.613459.3.579.2.727 1962 Unknown [id number] 2.16.8 40.1.907649.3.579.2.1246 1962 Unknown [id number] 2.16.8 40.1.671499.3.579.2.1246 1962 Unknown [id number] 2.16.8 40.1.945976.3.579.2.1246 1962 Unknown [id number] 2.16. 840.1.116282.3.579.2.1244 1959 Medicaid [id number] Unknown [employer] [id number] Unknown [id number] 2.16.8 40.1.718591.3.579.2.531 Unknown [id number] 2.16.8 40.1.046877.3.579.2.531 Social History Date Type Detail Facility Start: 12-08-2020 Tobacco smoking stat [facility] Unknown if ever smoked [employer] Work Phone: Start: 1960 Sex Assigned At Not on file [facility] Work Phone: Start: 08-16-2021 End: 08-09-2022 Tobacco smoking status NHIS Ex-smoker (finding) [facility] Start: 10-09-2022 End: 06-02-2024 History of tobacco use [facility] Start: 1960 Sex Assigned At Female F [facility] Start: 08-09-2022 End: 06-02-2024 Daily caffeine consumption Daily caffeine consumption -[facility] [address] DO Work Phone: Comment on above: 1 CUP OF COFFEE; 2 CIGS DAILY; quit 2021; Start: 04-11-2022 End: 01-01-2024 Tobacco smoking status Heavy tobacco smoker (finding) [facility] Tobacco smoking status Never [facility] Start: 02-12-2023 End: 07-14-2024 History of tobacco use Current smoker [facility] End: 07-19-2021 History of tobacco use Cigarette Smoker [facility] Start: 08-09-2022 End: 03-12-2023 Tobacco use and exposure Smokeless tobacco non-user [facility] Start: 08-09-2022 Alcohol intake Current drinke r of alcohol (finding) [facility] Start: 10-09-2022 Alcohol intake Ex-drinker (finding) [facility] Start: 02-10-2023 Tobacco smoking status Light t obacco smoker (finding) [facility] Start: 03-12-2023 End: 07-30-2023 Tobacco smoking status NHIS Smokes tobacco daily [facility] History of tobacco use Passive smoker [facility] Start: 08-12-2023 End: 06-02-2024 Alcoholic beverage intake Lifetime non-drinker (finding) [facility] Start: 05-23-2024 End: 07-02-2024 Exposure to SARS-CoV-2 (event) Not sure [facility] Sexual Orientation [facility] Start: 02-20-2012 End: 07-14-2024 Sex Female (finding) [facility] Goals Date Patient Goal Desired Activity /State Functional Status Date Assessment Result Facility 01-01-2024 Functional Status N/A [facility] 11-29-2023 Functional Status N/A [facility] 02-14-2023 Functional status Patient at Baseline [facility] Work Phone: 02-10-2023 Functional Status N/A [facility] 10-15-2022 Functional Status N/A [facility] 06-14-2022 Functional Status N/A [facility] 04-19-2023 Functional Status N/A [facility] 05-23-2022 Functional Status N/A [facility] 04-11-2022 Functional Status N/A [facility] 08-17-2021 Functional status Patient at Baseline [facility] Work Phone: Mental Status Date Assessment Result Facility 02-14-2023 Cognitive function Cognitive Sta tus Patient at Baseline [facility] Work Phone: 08-17-2021 Cognitive function Cognitive Sta tus Patient at Baseline [facility] Work Phone: Clinical Notes 01-18-2010 to 07-14-2024 Note Date & Type Note Facility 07-14-2024 Discharge summary Note Date/Time July 14, 2024 2:19p m [facility] [address] [place] [address] Discharge Summary Signed Patient: Deysi Hernandez MR#: [id number] : 1960 Acct:[id number] Age/Sex: 64 / F Adm Date: 5 Loc: CL Room: Attending Dr: Jaycob Goldstein MD Copies to: DO Jaycob Aguilera MD, FACC~ Providers Date of Discharge: 07/14/24 Discharging Provider: Jaycob Goldstein Primary Care Provider: Juany Cochran Discharge Diagnosis Final Diagnosis Final Discharge Diagnosis: Diffuse coronary atherosclerosis Hyperlipidemia Essential hypertension Summary Hospital Course Hospital course: Outpatient procedure Time Spent with Patient Time spent providing/coordinating discharge services (# min): 30 Surgeries and Procedures Operation Date: 07/14/24 13:15 Actual Procedures p CL [facility] Angio - Jaycob Goldstein MD Discharge Plan Discharge Plan Patient Disposition: Home Activity: Ambulate as Tolerated Comment: Do not drive a car today Diet: Low-Sodium and Low-Cholesterol Instructions: Know your Meds Prescriptions: Continued aspirin 81 mg Tablet,Delayed Release (Dr/Ec) 81 mg PO DAILY 30 Days Qty: 30 11RF metoprolol succinate 25 mg tablet extended release 24 hr 25 mg PO QHS lisinopril 10 mg tablet 20 mg PO QAM albuterol sulfate 90 mcg/actuation HFA aerosol inhaler 2 puff INHALATION Q4-6H PRN (Reason: shortness of breath) cholecalciferol (vitamin D3) 25 mcg (1,000 unit) capsule 25 mcg PO QAM magnesium oxide 400 mg (241.3 mg magnesium) tablet 800 mg PO BID Rx Instructions: 2 tabs in morning and 1 tab at night pravastatin 20 mg tablet 20 mg PO QAM Exam Physical Exam Vital Signs: Temp Pulse Resp BP Pulse Ox O2 Del Method 98.3 F 66 18 119/71 96 Room Air 07/14/24 12:14 07/14/24 12:14 07/14/24 12:14 07/14/24 12:14 07/14/24 12:14 07/14/24 12:14 Documented By: Jaycob Goldstein MD, [facility] 5 [id number] Signed By: <Electronically signed by MD YASIR Goldstein> 07/14/24 1419 [facility] Work Phone: 1(435) 710-530505-27-2025 [place] [id number] Discharge Summary Signed Patient: Deysi Hernandez MR#: [id number] : 1960 Acct:[id number] Age/Sex: 64 / F Adm Date: 5 Loc: Room: Attending Dr: Jaycob Goldstein MD Copies to: DO Jaycob Aguilera MD, [facility]~ Providers Date of Discharge: 07/14/24 Discharging Provider: Jaycob Goldstein Primary Care Provider: Juany Cochran Discharge Diagnosis Final Diagnosis Final Discharge Diagnosis: Diffuse coronary atherosclerosis Hyperlipidemia Essential hypertension Summary Hospital Course Hospital course: Outpatient procedure Time Spent with Patient Time spent providing/coordinating discharge services (# min): 30 Surgeries and Procedures Operation Date: 07/14/24 13:15 Actual Procedures p CL LHC & COR Angio - Jaycob Goldstein MD Discharge Plan Discharge Plan Patient Disposition: Home Activity: Ambulate as Tolerated Comment: Do not drive a car today Diet: Low-Sodium and Low-Cholesterol Instructions: Know your Meds Prescriptions: Continued aspirin 81 mg Tablet,Delayed Release (Dr/Ec) 81 mg PO DAILY 30 Days Qty: 30 11RF metoprolol succinate 25 mg tablet extended release 24 hr 25 mg PO QHS lisinopril 10 mg tablet 20 mg PO QAM albuterol sulfate 90 mcg/actuation HFA aerosol inhaler 2 puff INHALATION Q4-6H PRN (Reason: shortness of breath) cholecalciferol (vitamin D3) 25 mcg (1,000 unit) capsule 25 mcg PO QAM magnesium oxide 400 mg (241.3 mg magnesium) tablet 800 mg PO BID Rx Instructions: 2 tabs in morning and 1 tab at night pravastatin 20 mg tablet 20 mg PO QAM Exam Physical Exam Vital Signs: Temp Pulse Resp BP Pulse Ox O2 Del Method 98.3 F 66 18 119/71 96 Room Air 07/14/24 12:14 07/14/24 12:14 07/14/24 12:14 07/14/24 12:14 07/14/24 12:14 07/14/24 12:14 Documented By: Jaycob Goldstein MD, [facility] 1418 Signed By: 07/14/24 1419 [facility]05-27-2025 [place] [address] Cardiac Catheterization Note Signed Patient: Deysi Hernandez MR#: [id number] : 1960 Acct:[id number] Age/Sex: 64 / F Adm Date: 5 Loc: Room: Type: [facility] Attending Dr: Jaycob Goldstein MD Copies to: DO Jaycob Aguilera MD, [facility]~ Cardiac Catheterization (Left) DATE/PROVIDER 07/14/2024 Jaycob Goldstein MD INDICATION Dyspnea on exertion/abnormal coronary CT angiography PRE PROCEDURE Frailty Scale: Managing Well ASA Classification: 2 Mallampati Score: Class II POST PROCEDURE Cardiology Post-Op Diagnosis: Other (Mild-moderate diffuse coronary atherosclerosis with no high-grade stenosis) PROCEDURE PROCEDURE MEDICATIONS: Versed 2 mg intravenously Approach: Femoral - Rt 1?left heart catheterization 2?left and right coronary angiography 3?LV gram 4?conscious sedation PROCEDURE DETAILS After obtaining informed consent the patient was brought to the cardiac Medical Interpreter. The right groin was prepped and draped in normal sterile fashion. 1% lidocaine was used for local anesthesia. A 4 Martiniquais SideArm sheath was placed in the right femoral artery without difficulties. A 4 Martiniquais JL 4 catheter was advanced over a Sydnee wire and selectively engage the left main coronary artery and multiple injections were taken. The catheter was exchanged over the wire with a 4 Martiniquais 3 DRC catheter which was selectively engaged in the right coronary artery and 2 injections were taken. The catheter was exchanged over the wire with a 4 Martiniquais angled pigtail catheter which was placed in the left vent ricle and pressure was measured followed by LV gram at 30 degrees KAPLAN injection rate 12 cc/s for 2 seconds. The catheter was then flushed and pulled intothe ascending aorta and was removed over the wire. The patient tolerated the procedure very well without any complications and was transferred to the recovery room in stable condition. HEMOSTASIS Manual compression the Medical Interpreter. SUMMARY OF FINDINGS CCS Classification: CCS II -Angina w/ moderate Dominance: Right Left Main: The left main is a moderate-sized vessel and normal, it divides into anterior descending artery andleft circumflex. LAD-Prox: The left anterior descending artery is a large size vessel with diffuse calcification and mild luminal narrowing in the midsegment. No high-grade lesions are noted. It provides 2 diagonals which haveno significant disease. CIRC- Prox: The left circumflex is a large size nondominant vessel that provides to moderatesize obtuse marginal. The midsegment has diffuse calcification with tubular stenosis not exceeding 50%.. The margins are free of disease. RCA: Right coronary artery is a large size dominant vessel that provides a moderate- sized posterior descending artery posterolateral branches. The mid segment has luminal irregularity not causing more than 40% stenosis LEFT VENTRICLE EF %: 65 The left ventricle is normal size and function VALVE-AORTIC Aortic Valve Disease: No VALVE-MITRAL Mitral Valve Disease: No HEMODYNAMICS LVEDP 10 mmHg FLUOROSCOPY Diffuse three-vessel coronary calcification was noted IMPRESSION 1?diffuse coronary atherosclerosis with no high-grade lesions 2?normal left ventricular ejection fraction at 65% 3?normal hemodynamics 4?severe coronary calcifications RECOMMENDATIONS Medical therapy Documented By: Jaycob Goldstein MD, [facility] 5 1400 Signed By: 07/14/24 1417 [facility]05-15-2025 Nurse Note* Micheline Stallworth RN - 07/02/2024 1:00 PM EDT Post CCTA pt denies feeling dizzy or lightheaded, denies headache. Steady on feet, skin warm pink and dry. Pt verbalized understanding of increased water intake x24 hours, educated on side effects ofmedications. HL removed with tip intact, manual pressure held until hemostasis achieved, 2x2 and coban to site. Pt to receive IV hydration and then DC home to self care with spouse. [facility]05-15-2025 Nurse Note* Micheline Stallworth RN - 07/02/2024 1:00 PM EDT IVF hydration started per Dr. Rae's order. Snack given. Pt with in hydration room watching TV. [facility] Work Phone: 1(620) 831-529205-15-2025 Nurse Note* Yelena Ross RN - 07/02/2024 1:00 PM EDT IV hydration continued without diff. Pt. Denies HANSON, SOB, or dizziness. Family member with pt. [facility] Work Phone: 1([phone]) 635-389505-15-2025 Nurse Note* Micheline Stallworth RN - 07/02/2024 1:00 PM EDT Post CCTA pt denies feeling dizzy or lightheaded, denies headache. Steady on feet, skin warm pink and dry. Pt verbalized understanding of increased water intake x24 hours, educated on side effects ofmedications. HL removed with tip intact, manual pressure held until hemostasis achieved, 2x2 and coban to site. Pt to receive IV hydration and then DC home to self care with spouse. * Micheline Stallworth RN - 07/02/2024 1:00 PM EDT IVF hydration started per Dr. Rae's order. Snack given. Pt with in hydration room watching TV. * Yelena Ross RN - 07/02/2024 1:00 PM EDT IV hydration continued without diff. Pt. Denies HANSON, SOB, or dizziness. Family member with pt. documented in this [facility] Work Phone: 1(947) 311-805204-15-2025 History of Present illness Narrative* Jaycob Goldstein MD - 06/02/2024 8:40 AM EDT Chief Complaint Patient presents with Follow-up 1 year Follow up for Hypertension Subjective Deysi Hernandez is a 64 y.o. female HPI 64-year-old white female who has previously followed with Dr. Beal, the record reviewed. The patient has ongoing symptoms of dyspnea on exertion and discomfort in the chest. She is an active smoker with documented history of PAD but no CVD. She has COPD on examination but does not follow-up withpulmonary medicine. She lives with her who quit smoking years ago. She is trying to quit smoking. In 2021 she had a nuclear stress test which came back normal but the echocardiogram at the same time showed inferolateral wall hypokinesis and reduced ejection fraction at 45%. The patient has no orthopnea PND lower extremity edema. She has no palpitations. She does have hyperlipidemia and stage IIIb chronic kidney disease, she is nondiabetic. She does have hypertension on medical therapy. Her examination is remarkable for diminished breath sounds in her lungs. She has diminished pulses in her lower extremities. No carotid bruits were heard. Assessment/recommendations: 1-suspected coronary heart disease based on abnormal echocardiogram showing regional wall motion abnormalities along with symptoms of dyspnea on exertion and angina equivalent. The nuclear stress test in 2021 revealed normal perfusion study. I recommended doing coronary CT angiography with coronarycalcium score and based on the result decide on whether invasive cardiac workup is needed or not. Emphasized the need for antiplatelet therapy, statin therapy and tobacco cessation. 2-essential hypertension, currently under control 3-hyperlipidemia on high intensity statin 4-intermittent claudication, PVR study is recommended and tobacco cessation was advocated, continueaspirin and statin 5-COPD due to active tobacco use. Presently not on medical therapy and not following up with pulmonary medicine, tobacco cessation was advocated 6-stage IIIb chronic kidney disease follows with nephrology. This is likely on the basis of atherosclerotic disease of her renal arteries which was explained to her. 7-active tobacco abuse. Patient was extensively educated about need for tobacco cessation Review of Systems Cardiovascular: Positive for palpitations. Respiratory: Positive for shortness of breath. Neurological: Positive for light-headedness. All other systems reviewed and are negative. Vitals: 06/02/24 0851 BP: 118/60 BP Location: Left arm Patient Position: Sitting Pulse: 56 Weight: 66.2 kg (146 lb) Height: 1.626 m (5' 4 ) Objective Physical Exam Constitutional: Appearance: Normal appearance. HENT: Nose: Nose normal. Neck: Vascular: No carotid bruit. Cardiovascular: Rate and Rhythm: Normal rate. Pulses: Normal pulses. Heart sounds: Normal heart sounds. Pulmonary: Effort: Pulmonary effort is normal. Breath sounds: Decreased air movement present. Abdominal: General: Bowel sounds are normal. Palpations: Abdomen is soft. Musculoskeletal: General: Normal range of motion. Cervical back: Normal range of motion. Right lower leg: No edema. Left lower leg: No edema. Feet: Comments: Absent lower extremity pulse Skin: General: Skin is warm and dry. Neurological: General: No focal deficit present. Mental Status: She is alert. Psychiatric: Mood and Affect: Mood normal. Behavior: Behavior normal. Thought Content: Thought content normal. Judgment: Judgment normal. Allergies Codeine Current Medications Current Outpatient Medications: albuterol 90 mcg/actuation inhaler, Inhale 1 puff every 6 hours if needed., Disp: , Rfl: aspirin 81 mg EC tablet, Take 1 tablet (81 mg) by mouth once daily., Disp: , Rfl: atorvastatin (Lipitor) 40 mg tablet, Take 1 tablet (40 mg) by mouth once daily at bedtime., Disp: 90 tablet, Rfl: 1 cholecalciferol (Vitamin D-3) 25 mcg (1,000 units) capsule, Take 1 capsule (25 mcg) by mouth once daily., Disp: , Rfl: lisinopril 20 mg tablet, Take 1 tablet (20 mg) by mouth once daily., Disp: , Rfl: magnesium oxide (Mag-Ox) 400 mg (241.3 mg magnesium) tablet, Take 1 tablet (400 mg) by mouth once daily., Disp: , Rfl: metoprolol succinate XL (Toprol-XL) 25 mg 24 hr tablet, Take 1 tablet (25 mg) by mouth once daily. Do not crush or chew., Disp: 90 tablet, Rfl: 3 Assessment/Plan 1. Angina pectoris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 History No Family History [...] Age at Onset Recorded Date/T aviva father Heart disease Unknown Myocardial infarction Unknown Unknown grandparent Malignant neoplasm of breast Unknown Advance Directives No Advanced Directives Records Found [...] acquired pneumonia Shortness of breath Chief Complaint Admit Date Chest Discomfort, Angina, Elevated Calci um Score July 10, 2024 10:28am Chief Complaint Admit Date Chest Discomfort, Angina, Elevated Calci um Score July 10, 2024 10:28am Chest Discomfort, Angina, Elevated Calci um Score July 14, 2024 11:46am Chief Complaint DEYSI HERNANDEZ is being seen for [facility] D/ 603.DEYSI HERNANDEZ is being seen for [facility] D/C 603.DEYSI HERNANDEZ is being seen for [facility] D/ 603.* Results: Right Brachial: 1.00 Left [...] OR WO CAD BILATERAL Alexandr Amin MD [address] [facility] [address] [place] [address] Reason Comments Consult Reason Comments Follow Up Reason Comments Patient Question Reason Comments Follow-up 1 year Follow up for Hypertension Specialty Diagnoses / Procedures Referred By Contac t Referred To Contact Cardiology Diagnoses Mixed hyperlipidemia Primary hypertension Current smoker Procedures Follow Up In Cardiology Marquez Beal MD McGuinn, William P, MD Retired From Practice Referral ID Status Reason Start Date Expiration Date V isits Requested Visits Authorized [id number] Authorized 03/12/2023 03/11/2024 1 1 INFORMATION SOURCE (unrecogn ized section and content) DATE CREATED AUTHOR 12/17/2020 [facility] DATE CREATED AUTHOR AUTHOR'S ORGANIZ ATION 01/27/2022 [facility] DATE CREATED AUTHOR AUTHOR'S ORGANIZ ATION 03/06/2022 [facility] DATE CREATED AUTHOR AUTHOR'S ORGANIZ ATION 07/03/2022 [facility] DATE CREATED AUTHOR AUTHOR'S ORGANIZ ATION 08/28/2022 [facility] DATE CREATED AUTHOR AUTHOR'S ORGANIZ ATION 10/30/2022 [facility] DATE CREATED AUTHOR AUTHOR'S ORGANIZ ATION 08/13/2023 [facility] DATE CREATED AUTHOR AUTHOR'S ORGANIZ ATION 12/02/2023 [facility] DATE CREATED AUTHOR AUTHOR'S ORGANIZ ATION 04/24/2024 [facility] DATE CREATED AUTHOR AUTHOR'S ORGANIZ ATION 06/24/2024 [facility] DATE CREATED AUTHOR AUTHOR'S ORGANIZ ATION 07/22/2024 [facility] DATE CREATED AUTHOR AUTHOR'S ORGANIZ ATION 08/17/2024 [facility] DATE CREATED AUTHOR AUTHOR'S ORGANIZ ATION 09/22/2024 [facility] [employer] Teacher Teams (unrecognized sec tion and content) Team [...] Active Kevyn Sharma MD Attending Provider Active Rn Outpatient Surgery Relationship Specialty Start Date End Date Shaikh Thompson MD [address] [place] [address] PCP - General Primary Care 08/09/22 Rn Outpatient Surgery Relationship Specialty Start Date End Date Shaikh Thompson MD [address] [place] [address] PCP - General Primary Care 08/09/22 Rn Outpatient Surgery Relationship Specialty Start Date End Date Shaikh Thompson MD [address] [place] [address] PCP - General Primary Care 08/09/22 Rn Outpatient Surgery Relationship Specialty Start Date End Date Shaikh Thompson MD [address] [place] [address] PCP - General Primary Care 08/09/22 Rn Outpatient Surgery Relationship Specialty Start Date End Date Shaikh Thompson MD [address] [place] [address] PCP - General Primary Care 08/09/22 Rn Outpatient Surgery Relationship Specialty Start Date End Date Shaikh Thompson MD [address] [place] [address] PCP - General Primary Care 08/09/22 Team [...] March 12, 2023 End: March 12, 2023 Rn Outpatient Surgery Relationship Specialty Start Date End Date Mikhail Dutta MD [address] [place] [address] PCP - General Family Medicine 09/30/23 Sadaf Hill NP [address] [place] [address] Nurse Practitioner Family Medicine 09/30/23 Rn Outpatient Surgery Relationship Specialty Start Date End Date Shaikh Thompson MD PCP - General Internal Medicine 03/12/23 Rn Outpatient Surgery Relationship Specialty Start Date End Date Shaikh Thompson MD [address] [place] [address] PCP - General Internal Medicine 03/12/23 Rn Outpatient Surgery Relationship Specialty Start Date End Date Mikhail Dutta MD [address] [place] [phone] PCP - General Family Medicine 09/30/23 Sadaf Hill NP [address] [place] [phone] Nurse Practitioner Family Medicine 09/30/23 Team Status: Active Member Role Status Dates Juany Cochran DO Primary Care Provider Active Team Status: Inactive Member Role Status Dates Jaycob Goldstein MD Attending Provider Active St art: July 10, 2024 End: July 10, 2024 Juany Cochran DO Primary Care Provider Active Start: July 10, 2024 End: July 10, 2024 Team Status: Inactive Member Role Status Dates Jaycob Goldstein MD Attending Provider Active St art: July 14, 2024 End: July 14, 2024 Juany Cochran DO Primary Care Provider Active Start: July 14, 2024 End: July 14, 2024 Rn Outpatient Surgery Relationship Specialty Start Date End Date Mikhail Dutta MD [address] [place] [phone] PCP - General Family Medicine 09/30/23 Sadaf Hill NP [address] [place] [address] Nurse Practitioner Family Medicine 09/30/23 Rn Outpatient Surgery Relationship Specialty Start Date End Date Shaikh Thompson MD [address] [place] [address] PCP - General Internal Medicine 03/12/23 Source Comments (unrecognize d section and content) In the event this informatio n is protected by the Federal Confidentiality of Alcohol and Drug Abuse Patient Records regulations: The Federal rules restrict any use of the information to criminally investigate or prosecute any alcohol or drug abuse patient.[facility] the event this information is protected by the Federal Confidentiality of Alcohol and Drug Abuse Patient Records regulations: The Federal rules restrict any use of the information to criminally investigate or prosecute any alcohol or drug abuse patient.[facility] the event this information is protected by the Federal Confidentiality of Alcohol and Drug Abuse Patient Records regulations: The Federal rules restrict any use of the information to criminally investigate or prosecute any alcohol or drug abuse patient.[facility] the event this information is protected by the Federal Confidentiality of Alcohol and Drug Abuse Patient Records regulations: The Federal rules restrict any use of the information to criminally investigate or prosecute any alcohol or drug abuse patient.[facility] the event this information is protected by the Federal Confidentiality of Alcohol and Drug Abuse Patient Records regulations: The Federal rules restrict any use of the information to criminally investigate or prosecute any alcohol or drug abuse patient.[facility] the event this information is protected by the Federal Confidentiality of Alcohol and Drug Abuse Patient Records regulations: The Federal rules restrict any use of the information to criminally investigate or prosecute any alcohol or drug abuse patient.[facility] the event this information is protected by the Federal Confidentiality of Alcohol and Drug Abuse Patient Records regulations: The Federal rules restrict any use of the information to criminally investigate or prosecute any alcohol or drug abuse patient.[facility] Goals (unrecognized section and content) Goals may be documented in a n alternate section FOR RECORDS PERTAINING TO PATIENTS WHO ARE [...] BE BASED ON THE PRIMARY CLINICAL RECORDS. [facility] [email or web address] [facility]. provides no warranty or guarantee of the accuracy or completeness of information in this document.
[2024-11-01 20:14] VITALS: BP 148/84; PULSE 86; TEMP 36.6; O2SAT 94; BMI 25.9
[2024-11-01 20:31] VITALS: O2SAT 87
--- NOTE | 2024-11-01 20:39 | XR_ITS ---
[facility] [place] [id number] Patient Name: SIXTO IRCH MRN: [id number] date: 1960 Sex: F Assigned Patient Location: ER Current Patient Location: Accession/Order Number: [id number] Exam Date: 11/01/2024 20:48 Report Date: 11/02/2024 08:47 At the request of: ARI VICTORIA MD Procedure: XR chest 1V PA CHEST: CLINICAL HISTORY: cough, shortness of breath and sinus congestion COMPARISON: 05/27/2024 The heart is normal size. Hilar and mediastinal contours are similar. The lungs are hyperinflated. No developing consolidation is seen. There is no sizable effusion or pneumothorax. The bony structures are intact. XR/XR chest 1V IMPRESSION: NO ACUTE FINDINGS OR SIGNIFICANT CHANGE. Impression dictated by: Sylwia Dominguez M.D. 11/02/2024 8:47 AM Dictation Location: [place] [address] Electronically authenticated by: [id number] Y Date: 11/02/2024 08:47
--- NOTE | 2024-11-01 20:41 | ED.URI1 ---
HPI - URI/Sore Throat General Chief Complaint: Upper Respiratory Infection Stated Complaint: Upper Respiratory Infection Time Seen by Provider: 11/01/24 20:33 Source: patient Limitations: no limitations History of Present Illness HPI Narrative: history of COPD. cigarette smoker. ill for past 4-5 of days with green nasal discharge and cough productive green phlegm. Did have sore throat but this resolved. left groin pain yesterday after coughing but this resolved. No fever. Does not wear home 02 Related Data Home Medications ?Medication ?Instructions ?Recorded ?Confirmed aspirin 81 mg chewable tablet 1 tab PO DAILY 08/04/23 11/01/24 lisinopril 10 mg tablet 20 mg PO DAILY 08/04/23 11/01/24 metoprolol succinate 50 mg 25 mg PO DAILY 08/04/23 11/01/24 tablet,extended release 24 hr albuterol sulfate 90 mcg/actuation 2 inh inhalation Q4H PRN shortness 03/31/24 11/01/24 aerosol inhaler of breath or wheezing albuterol sulfate 2.5 mg/3 mL 2.5 mg inhalation Q4H PRN 11/01/24 11/01/24 (0.083 %) solution for nebulization shortness of breath or wheezing cholecalciferol (vitamin D3) 25 25 mcg PO DAILY 11/01/24 11/01/24 mcg (1,000 unit) capsule rosuvastatin 20 mg tablet 20 mg PO DAILY 11/01/24 11/01/24 Allergies Allergy/AdvReac Type Severity Reaction Status Date / Time codeine Allergy Severe swelling Verified 11/01/24 20:23 Review of Systems ROS Status of ROS 10 or more systems reviewed and unremarkable except as noted in history and below [facility] Medical History (Updated 11/01/24 @ 22:08 by Artemio Fried MD) Stress incontinence ?N39.3 - Stress incontinence (female) (male) (ICD-10) Renal cyst ?N28.1 - Cyst of kidney, acquired (ICD-10) Orthostatic hypotension ?I95.1 - Orthostatic hypotension (ICD-10) Hyperlipidemia ?E78.5 - Hyperlipidemia, unspecified (ICD-10) Erythrocytosis ?D75.1 - Secondary polycythemia (ICD-10) Dysphagia ?R13.10 - Dysphagia, unspecified (ICD-10) Alkalosis ?E87.3 - Alkalosis (ICD-10) Smoker ?F17.200 - Nicotine dependence, unspecified, uncomplicated (ICD-10) Stroke ?I63.9 - Cerebral infarction, unspecified (ICD-10) HTN (hypertension) ?I10 - Essential (primary) hypertension (ICD-10) GERD (gastroesophageal reflux disease) ?K21.9 - Gastro-esophageal reflux disease without esophagitis (ICD-10) CKD (chronic kidney disease) ?N18.9 - Chronic kidney disease, unspecified (ICD-10) Recurrent UTI ?N39.0 - Urinary tract infection, site not specified (ICD-10) Flank pain ?R10.9 - Unspecified abdominal pain (ICD-10) Renal atrophy ?N26.1 - Atrophy of kidney (terminal) (ICD-10) Surgical History (Updated 04/30/24 @ 11:02 by Amy Charles) H/O colonoscopy ?Z98.890 - Other specified postprocedural states (ICD-10) History of endometrial ablation ?Z98.890 - Other specified postprocedural states (ICD-10) Family History (Updated 04/06/24 @ 07:32 by Maryse Araya, NAYE) Other Family history of hypertension Family history of myocardial infarction Social History (Updated 04/06/24 @ 07:32 by Maryse Araya, RN) Within the past year, how often did you have a drink containing alcohol: never Score interpretation: A score less than 3 is consistent with normal alcohol consumption. 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 Highest level of school completed/degree received: high school graduate Little interest or pleasure in doing things: not at all Feeling down, depressed, or hopeless: not at all Exam Constitutional Vital Signs, click to edit/add: Last Vital Signs Temp 97.9 F 11/01/24 20:14 Pulse 85 11/01/24 21:59 Resp 20 11/01/24 21:59 BP 150/80 H 11/01/24 21:59 Pulse Ox 95 11/01/24 21:59 O2 Del Method Nasal Cannula 11/01/24 21:19 O2 Flow Rate 2 11/01/24 21:19 Common normals: no apparent distress, average body habitus, oriented x3, no limitations, healthy appearing, alert and well nourished [facility] Common normals: normocephalic and head/scalp atraumatic Eye Common normals: EOMs intact bilaterally and conjunctivae normal Respiratory Other: diminished breath sounds Cardio Common normals: regular rate, regular rhythm, S1 normal heart sound and S2 normal heart sound GI Common normals: Normal to inspection, nondistended, normoactive bowel sounds present, soft to palpation and non-tender Extremity Common normals: normal to inspection and full ROM Neuro Common normals: oriented x3, CN's II-XII intact bilaterally, moves all extremities and no focal motor deficits Psych Appearance: grossly normal Course Vital Signs Vital signs: Vital Signs Temperature 97.9 F 11/01/24 20:14 Pulse Rate 86 11/01/24 20:14 Respiratory Rate 24 H 11/01/24 20:14 Blood Pressure 148/84 H 11/01/24 20:14 Pulse Oximetry 94 L 11/01/24 20:14 Oxygen Delivery Method Nasal Cannula 11/01/24 20:14 Oxygen Delivery Flow Rate 2 11/01/24 20:14 Temperature 97.9 F 11/01/24 20:14 Pulse Rate 85 11/01/24 21:59 Respiratory Rate 20 11/01/24 21:59 Blood Pressure 150/80 H 11/01/24 21:59 Pulse Oximetry 95 11/01/24 21:59 Oxygen Delivery Method Nasal Cannula 11/01/24 21:19 Oxygen Delivery Flow Rate 2 11/01/24 21:19 MDM - URI/Sore Throat MDM Narrative Medical decision making narrative: ill since this past Saturday with cough and nasal congestion. feels symptoms have progressed and came in. History of COPD and continues to smoke. Does have home 02 but states she has not been using it.she also has pulse ox device at home as well as a nebulizer. treated with solumedrol and duoneb. feeling better. Afebrile. COVID19 positive. WBC normal. HCO-3 27. creat 1.17. cxray clear per my preliminary review is neg for infiltrate. Patient advised of the diagnosis of COVID 19. her symptoms started 5 days ago. She was offered Paxlovid and informed she is at the tail end of appropriateness to use the medication. She preferred not to use it. CT sinuses per radiology is clear. Plan discharge with prednisone. sputum sent for culture. advised of the importance of wearing her 02 and monitoring her pulse ox to insure it is staying over 91%. we did remove her 02 here and she was 90-91% on RA. advised to apply her 02 when she gets home. States she has a 5min drive to home Lab Data Labs: Lab Results 11/01/24 11/01/24 Range/Units 20:25 21:19 WBC 9.7 (4.0-11.0) 10^3/uL RBC 5.44 H (4.20-5.40) 10^6/uL Hgb 16.6 H (12.0-16.0) g/dL Hct 49.6 H (36.0-48.0) % MCV 91.2 (81.0-99.0) fL MCH 30.5 (26.7-34.0) pg MCHC 33.5 (29.9-35.2) g/dL RDW 13.2 (11.0-15.0) % Plt Count 245 (150-450) 10^3/uL MPV 9.5 (9.5-13.5) fL Neut % (Auto) 59.5 (43.0-75.0) % Lymph % (Auto) 27.3 (20.5-60.0) % Parmer % (Auto) 9.2 (1.7-12.0) % Eos % (Auto) 3.0 (0.9-7.0) % Baso % (Auto) 0.8 (0.2-2.0) % Neut # (Auto) 5.8 (1.4-6.5) 10^3/uL Lymph # (Auto) 2.7 (1.2-3.8) 10^3/uL Parmer # (Auto) 0.9 H (0.3-0.8) 10^3/uL Eos # (Auto) 0.3 (0.0-0.7) 10^3/uL Baso # (Auto) 0.1 (0.0-0.1) 10^3/uL Abs Immat Gran (auto) 0.02 (0.00-0.03) 10^3/uL Imm/Tot Granulo (auto) 0.2 (0.0-0.5) % Sodium 142 (136-145) mmol/L Potassium 4.7 (3.5-5.1) mmol/L Chloride 105 (98-107) mmol/L Carbon Dioxide 27.1 (21.0-32.0) mmol/L Anion Gap 14.6 BUN 15.0 (7.0-18.0) mg/dL Creatinine 1.17 H (0.55-1.02) mg/dL Est GFR ( Amer) 57 L (>=60 mL/min/1.73m^2) Est GFR (Non-Af Amer) 47 L (>=60 mL/min/1.73m^2) BUN/Creatinine Ratio 12.8 Glucose 108 H (74-106) mg/dL Calcium 9.4 (8.5-10.1) mg/dL Troponin I High Sens 11.4 (4.0-51.3) pg/mL Influenza Type A Ag Negative Influenza Type B Ag Negative SARS-CoV-2 Ag (CV2AG) Positive A (NEGATIVE) Discharge Plan Discharge Chief Complaint: Upper Respiratory Infection Clinical Impression: COVID-19 Patient Disposition: Home, Self-Care Prescriptions / Home Meds: No Action metoprolol succinate 50 mg tablet extended release 24 hr 25 mg PO DAILY lisinopril 10 mg tablet 20 mg PO DAILY aspirin 81 mg tablet,chewable 1 tab PO DAILY albuterol sulfate 90 mcg/actuation HFA aerosol inhaler 2 inh inhalation Q4H PRN (Reason: shortness of breath or wheezing) albuterol sulfate 2.5 mg /3 mL (0.083 %) solution for nebulization 2.5 mg inhalation Q4H PRN (Reason: shortness of breath or wheezing) cholecalciferol (vitamin D3) 25 mcg (1,000 unit) capsule 25 mcg PO DAILY rosuvastatin 20 mg tablet 20 mg PO DAILY Print Language: Turkmen Instructions: COVID-19 (Coronavirus Disease 2019) (ED) Additional Instructions: must wear your oxygen until cleared by your PCP. Monitor your pulse ox to insure it is staying over 91% Referrals: Juany Cochran DO [Primary Care Provider] - 1 week
[2024-11-01 21:11] LABS: Hematocrit 49.6 % (36.0-48.0); Hemoglobin 16.6 g/dL (12.0-16.0); Immature Granulocytes Abs Auto 0.02 10^3/uL (0.00-0.03); Immature Granulocytes Pct Auto 0.2 % (0.0-0.5); Lymphocytes Absolute Auto 2.7 10^3/uL (1.2-3.8); Mean Corpuscular HGB Conc 33.5 g/dL (29.9-35.2); Mean Corpuscular Hemoglobin 30.5 pg (26.7-34.0); Mean Corpuscular Volume 91.2 fL (81.0-99.0); Platelet Count 245 10^3/uL (150-450); Red Blood Count 5.44 10^6/uL (4.20-5.40); White Blood Count 9.7 10^3/uL (4.0-11.0)
[2024-11-01] MEDS: METHYLPREDNISOLONE SOD SUCC PF 125 MG/2 ML VIAL IVP (21:15)
[2024-11-01 21:19] VITALS: PULSE 83; O2SAT 95
[2024-11-01] MEDS: IPRATROPIUM/ALBUTEROL SULFATE 3 ML AMPUL.NEB IH (21:19)
[2024-11-01 21:31] LABS: Anion Gap 14.6; Blood Urea Nitrogen 15.0 mg/dL (7.0-18.0); Calcium 9.4 mg/dL (8.5-10.1); Carbon Dioxide 27.1 mmol/L (21.0-32.0); Chloride 105 mmol/L (98-107); Estimated GFR (African America 57 (>=60 mL/min/1.73m^2); Estimated GFR (Non-African Ame 47 (>=60 mL/min/1.73m^2); Glucose 108 mg/dL (74-106); Potassium 4.7 mmol/L (3.5-5.1); Sodium 142 mmol/L (136-145)
[2024-11-01 21:35] LABS: SARS-CoV-2 Ag POSITIVE (NEGATIVE)
[2024-11-01] MEDS: ACETAMINOPHEN 500 MG TABLET 1000 MG PO (21:54)
[2024-11-01 21:59] VITALS: BP 150/80; PULSE 85; O2SAT 95
== END 2024-11-01 23:10 | disposition home or self-care (01) ==
PROVIDERS: Emergency Provider Internal Medicine; PCP Family Medicine
DX: U07.1 COVID-19 (principal); J44.9 Chronic obstructive pulmonary disease, unspecified; F17.210 Nicotine dependence, cigarettes, uncomplicated; Z99.81 Dependence on supplemental oxygen
CPT/HCPCS: 36415; 70486; 71045; 80048; 84484; 85025; 87070; 87205; 87804; 87811; 94640; 96374; 99285; J2919

== ENCOUNTER 2024-12-15 08:25 | Outpatient (OUT) | payer OTHER, SELFPAY ==
--- OUTSIDE RECORDS SUMMARY | 2024-02-10 09:00 | XMS_ITS ---
Author Organization [facility] [place] Address [address] [place] [address] Care Team Providers Care Senior Site Manager Name Role Phone DO Juany Cochran Primary Care Provider UnavailKenneth Eagle [phone] Encounters Encounter Location Date Provider Diagnosis [facility] [place] [address] [place] [address] 02/10/2024 Kenneth Saravia Plan Of Treatment Next Appt Details Provider Name:Yolanda Flores donny, 12/22/2024 04:00:00 PM, [address] [place], [address], Progress Notes * Digna HERNANDEZna FDOB:1960 (64 yo F)Acc No.[id number]:02/10/2024 UNLOCKED PROGRESS NOTE Progress Note Patient: Deysi REESE :Justino Saravia MDDOB:1960???Age:63 Y ???Sex:FemaleDate:02/10/2024hone:[phone]:[address] [place], [place]-[address]Pcp:DO Juany Cochran Subjective: * Chief Complaints: * * Medical History: Objective: * Vitals: Assessment: Plan: * Treatment: * * Electronic signature of Kenneth Saravia MD, [id number] on 12/15/2024 at 08:32 AM EDT Sign off status: PendingVisit Status:?R/S (Rescheduled) * Provider: Jimmie Saravia MD Date: 1 04/12/2023 Generated for Printing/Faxing/eTransmitting on:?12/15/2024 08:32 AM EDT
--- OUTSIDE RECORDS SUMMARY | 2024-12-15 08:32 | XMS_ITS | Clinical Summary ---
Author Organization [facility] Address [address] [place] [address] Phone Care Team Providers Care Poultry And Fish Butcher Name Role Phone Shaikh SHARMIN Thompson Primary Care Provider [phone] Allergies Active AllergyReactionsCriticalityNoted DateCommentsCodeineSwellingHigh 03/12/2023 Medications MedicationSigDispense QuantityRefillsLast FilledStart DateEnd DateStatus aspirin 81 mg EC tablet Take 1 tablet (81 mg) by mouth once daily.Active lisinopril 20 mg tablet Take 1 tablet (20 mg) by mouth once daily.04/11/2022ctive albuterol 90 mcg/actuation inhaler Inhale 1 puff every 6 hours if needed.Active magnesium oxide (Mag-Ox) 400 mg (241.3 mg magnesium) tablet Take 1 tablet (400 mg) by mouth once daily.5Active cholecalciferol (Vitamin D-3) 25 mcg (1,000 units) capsule Take 1 capsule (25 mcg) by mouth once daily.Active metoprolol succinate XL (Toprol-XL) 25 mg 24 hr tablet Indications:Primary hypertensionTake 1 tablet (25 mg) by mouth once daily. Do not crush or chew. 90 tablet 304/4/6Active rosuvastatin (Crestor) 20 mg tablet Indications:Hyperlipidemia, unspecified hyperlipidemia typeTake 1 tablet (20 mg) by mouth once daily. 90 tablet 308//987012/6Active Active Problems ProblemNoted DateDiagnosed DateBMI 25.0-25.9,adult06/02/2024Stage 3b chronic kidney qksmdwv5806/02/2024OPD (chronic obstructive pulmonary disease)06/02/2024 Intermittent usijcfksgiij18/15/2025Diminished pulses in lower extremity 06/02/2024ngina ugvccgfx17/15/2025urrent gyxbrz354Chest discomfort 02/13/20234746Dbwmnjqtatdm13/27/2023Elevated ifinntyl50/27/2023Embolic stroke 02/13/20237901Fabopmzajvkh56/27/9992Lzyvcqyrxrpb14/27/2023 Encounters DateTypeDepartmentCare GsjiAakmkhplzrx33/01/2025Telephone [facility] [address] [facility] [address] [place] [address] Elaine Bhatia RN Med Refillfrom Last 3 Months Immunizations ImmunizationAdministration DatesNext DuePPD Test06/22/2022neumococcal conjugate vaccine, 20-valent (PREVNAR 20)4RSV, 60 Years And Older (AREXVY) 01/18/2024 Family History Medical HistoryRelationNameCommentsAtrial fibrillationBrotherHeart attackBrother Heart attackFatherHypertensionSisterRelationNameStatusCommentsBrotherFather Sister Social History Tobacco UseTypesPacks/DayYears UsedDateSmoking Tobacco: Every DayCigarettes Smokeless Tobacco: Never Tobacco Cessation:Ready to Q uit: No; Counseling Given: Yes Alcohol UseStandard Drinks/WeekCommentsNever0 (1 standard drink = 0.6 oz pure alcohol)CommentsUnknownSex and Gender InformationValueDate RecordedSex Assigned at BirthNot on fileLegal CzcAotias43/26/2022 9:53 AM ESTGender Identity Not on fileSexual OrientationNot on file Last Filed Vital Signs Vital SignReadingTime TakenCommentsBlood Ysjazmbx651/77007/02/2024 12:34 PM EDT Vewqg608907/02/2024 12:34 PM EDTTemperature--Respiratory Kexr954407/02/2024 12:14 PM EDTOxygen Saturation--Inhaled Oxygen Concentration--Tdixwr48.2 kg (146 lb) 06/02/2024 8:51 AM APPYircoz801.6 cm (5' 4 )06/02/2024 8:51 AM EDTBody Mass Index25.0606/02/2024 8:51 AM EDT Plan of Treatment Health MaintenanceDue DateLast DoneCommentsCT Xgwqpxmgxjhx60/24/1963FIT-DNA (Cologuard)1962FIT1962HIV Bcvjsfwef07/24/1963Lipid Panel1962 Maehxuqshowvf46/24/1963Yearly Adult Yrrfgeab25/24/1963MMR Vaccines (1 of 1 - Standard series)05/12/1963Diabetes Wrxmzgcel06/24/1981Hepatitis C Screening 1980CKD: Urine Protein Mshtheoyh91/24/1982Cervical Cancer Screening 05/12/1983HPV/Webszy7305/12/1983Pap Smear05/12/1983DTaP/Tdap/Td Vaccines (1 - Tdap)1984Zoster Vaccines (1 of 2)05/11/20123096Mpokuukpl03/09/144749/10/2022, 12/08/2020, 12/08/2020Influenza Vaccine (#1)5COVID-19 Vaccine (1 - season)9419Oqhxnweixya623Colorectal Cancer Fmzafugok51/24/2033Pneumococcal JznntuiVbepsupnj37/30/2024RSV High Risk: (Elderly (60+) or Population)Jvjmvmdgw87/30/2024HIB VaccinesAged OutNo longer eligible based on patient's age to complete this topicHPV VaccinesAged OutNo longer eligible based on patient's age to complete this topicHepatitis A VaccinesAged OutNo longer eligible based on patient's age to complete this topic Hepatitis B VaccinesAged OutNo longer eligible based on patient's age to complete this topicIPV VaccinesAged OutNo longer eligible based on patient's age to complete this topicMeningococcal VaccineAged OutNo longer eligible based on patient's age to complete this topicRotavirus VaccinesAged OutNo longer eligible based on patient's age to complete this topic Insurance Care Teams Team MemberRelationshipSpecialtyStart DateEnd Date Shaikh Thompson MD [address] [place] [phone] PCP - GeneralInternal Medicine03/12/23
--- OUTSIDE RECORDS SUMMARY | 2024-12-15 08:32 | XMS_ITS | Clinical Summary ---
Author Organization [facility] [facility] tem Address [facility] [address] [place] [address] Care Team Providers Care Surveillance Operator Name Role Phone Shaikh SHARMIN Thompson Primary Care Provider [phone] Social History Tobacco UseTypesPacks/DayYears UsedDateSmoking Tobacco: Never AssessedChildcare AnswerDate ZvlbkucrMlsqflvosZoqxifz70/12/2019EmploymentAnswerDate Recorded GnlzxhpdjlLukxxjy03/12/2019CommentsUnknownSex and Gender Information ValueDate RecordedSex Assigned at BirthNot on fileLegal KebGbozfv92/06/2015 11:33 AM EDTGender IdentityNot on fileSexual OrientationNot on file Plan of Treatment Health MaintenanceDue DateLast DoneCommentsDepression Litosukzr56/24/1975Tobacco Kymicuokv35/24/1975Adult BMI Xkbcjjmou68/24/1981DTaP,Tdap and Td Vaccines (1 - Tdap)1981Pap Smear05/12/1983Zoster (Shingles) Vaccine (1 of 2)2012 Influenza Edpirqd9110/19/2024 Medical Devices Not on file Insurance Care Teams Team MemberRelationshipSpecialtyStart DateEnd Date Shaikh Thompson MD PCP - GeneralInternal Qckdlntz08/3/23
--- OUTSIDE RECORDS SUMMARY | 2024-12-15 08:33 | XMS_ITS | Patient Health Record ---
Author Organization [facility] [place] Address [address] [place] [address] Care Team Providers Care Vector Control Specialist Name Role Phone DO Juany Cochran Primary Care Provider UnavailKenneth Eagle Unavailable [phone] Yolanda Valverde Unavailable [phone] Allergies No Known Allergies Reason For Referral No Information Medications Medication SIG (Take, Route, Frequency, Duration) Notes Start Date End Date Status Atorvastatin Calcium 40 MG 1 tablet Orally Once a day Not-TakingAspirin 81 81 MG1 tablet Orally Once a dayActiveMAGnesium-Oxide 400 (240 Mg) MG1 tablet Orally 3 times per day; Duration: 90 days12/24/2023ctive Cholecalciferol 25 MCG (1000 UT)1 capsule Orally Once a day; Duration: 90 days 4ActiveLisinopril 5 MG1 tablet Orally Daily; Duration: 90 day(s)Active Gabapentin 300 MG1 capsule Orally Once a dayNot-TakingMetoprolol Succinate ER 25 MG1 tablet Orally Once a dayActivetiZANidine HCl 4 MG1 tablet at bedtime as needed Orally Once a dayNot-TakingAlbuterol Sulfate HFA 108 (90 Base) MCG/ACT2 puffs as needed for SOB Inhalation every 4 hrs; Duration: 30 daysActive Pravastatin Sodium 20 MG1 tablet Orally Once a dayActive Immunizations Vaccine Route Administration Date Status Comme nts SARS-COV-2 (COVID 19 Pfizer 30mcg/0.3mL) Unknown 01/14/2021 Administered Social History Tobacco Use: Social History Observation Description Date Details (start date - stop date) Current Smoker NA - NA Tobacco Use/Smoking Question Answer Notes Patient is a current smoker How often do you smoke cigarettes?every dayHow many cigarettes a day do you smoke?5 or lessAdditional Findings: Tobacco UserLight cigarette smoker ((1-9 cigs/day) Problems Problem Type SNOMED Code ICD Code Onset Dates Problem Status W/U Status Risk Notes Problem Essential hypertension (90393486 ) Essential (primary) hypertension (I10) ActiveconfirmedProblemHypomagnesemia (782780780)Hypomagnesemia (E83.42)Active confirmedProblemAcute renal failure syndrome (76342821)Acute kidney failure, unspecified (N17.9)ActiveconfirmedProblemNephrosclerosis (76158558)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)ActiveconfirmedProblemChronic fatigue syndrome (disorder) (88945750)Chronic fatigue, unspecified (R53.82)ActiveconfirmedProblem Chronic obstructive pulmonary disease (61191319)Chronic obstructive pulmonary disease (J44.9)ActiveconfirmedProblemVitamin D deficiency (91713061) Hypovitaminosis D (E55.9)ActiveconfirmedProblemMental disorder caused by drug (471987375)Cigarette nicotine dependence with nicotine-induced disorder (F17.219)ActiveconfirmedProblemEx-tobacco user (finding) (318816539)History of tobacco abuse (Z87.891)ActiveconfirmedProblemHistory of myocardial infarction (205460611)History of myocardial infarction (I25.2)ActiveconfirmedProblem Gastroesophageal reflux disease (611028136)Gastroesophageal reflux disease (K21.9)ActiveconfirmedProblemChronic kidney disease stage 3B (disorder) (225821245)CKD stage G3b/A2, GFR 30-44 and albumin creatinine ratio 30-299 mg/g (N18.32)Activeconfirmed Vital Signs Blood pressure diastolic 90 mm Hg 06/23/2024 Ulruue86 in06/23/2024lood pressure tkyjklzr376 mm Hg06/23/20242069Lsskwc932.6 lbs 06/23/2024BMI25.68 kg/m206/23/2024 Encounters Encounter Location Date Provider Diagnosis [facility] [address] [place] [id number] 12/24/2023 Yolanda Valverde CKD stage G3b/A2, GF R 30-44 and albumin creatinine ratio 30-299 mg/g N18.32 ; Essential (primary) hypertension I10 and Hypomagnesemia E83.42 [facility] [address] [place] [address] 06/23/2024 Yolanda Valverde CKD stage G3b/A2, GF R 30-44 and albumin creatinine ratio 30-299 mg/g N18.32 ; Essential (primary) hypertension I10 ; Hypomagnesemia E83.42 and Atrophy of kidney (terminal) N26.1 [facility] [address] [place] [address] 04/14/2024 Yolanda Valverde CKD stage G3b/A2, GF R 30-44 and albumin creatinine ratio 30-299 mg/g N18.32 [facility] [address] [place] [address] 04/22/2024 Yolanda Valverde [facility] [place] [address] 10/26/2024Semjayson ValverdeHypovitaminosis D E55.9 Assessments Encounter Date Diagnosis (ICD Code) Assessment Notes Treatment Notes Treatment Clinical Notes Section Notes 12/24/2023 Essential (primary) hypertension (ICD-10 - I10) 12/24/2023KD stage G3b/A2, GFR 30-44 and albumin creatinine [...] no concerning mass. Right kidney was unremarkable. 06/23/2024Essential (primary) hypertension (ICD-10 - I10)06/23/2024KD stage G3b/A2, GFR 30-44 and albumin creatinine [...] request urology records from Dr. Vergara at [facility] due to pt mentioning possible surgery removing her left kidney. Will also discuss this with Dr. Willson. 04/14/2024KD stage G3b/A2, GFR 30-44 and albumin creatinine ratio 30-299 mg/g (ICD-10 - N18.32)10/26/2024Hypovitaminosis D (ICD-10 - E55.9)06/23/2024 Hypomagnesemia (ICD-10 - E83.42)12/24/2023Hypomagnesemia (ICD-10 - E83.42) 06/23/2024trophy of kidney (terminal) (ICD-10 - N26.1) Plan [...] TSH 10/23/2023 Next Appt Details Provider Name:Yolanda hines, 12/22/2024 04:00:00 PM, [address], [place], [address], Insurance Providers Payer Name Payer Address Payer Phone Subscriber Number Group Number Insured Name Patient Relationship to Insured Coverage Start Date Coverage End Date [employer] [place] [employer] [address] [facility] [facility] [place] [address] [id number] Yasmine Hernandez - patient is the insured Medical (General) History Medical History History ICD Code Chronic obstructive pulmonary disease J4 4.9 Hyperlipidemia E78.5 Embolic stroke I63.9 Pyelonephritis N12 Gastroesophageal reflux disease K21.9 Diverticulosis of large intestine K57.30 Cigarette nicotine dependence with nicot ine-induced disorder F17.219 Hypertension since 07/2021 Surgical History Surgery Date(Month/Year) Hospitalization History Reason Date(Month/Year) UTI - [facility] Pneumonia [facility]12-2023
--- OUTSIDE RECORDS SUMMARY | 2024-12-15 08:33 | XMS_ITS | Clinical Summary ---
Author Organization [facility] Healthcare Address [address] [place] [address] Care Team Providers Care Telecommunications Administrator Name Role Phone Mikhail Dutta MD Primary Care Provider [phone] Sadaf Hill SALES LEADER Unavailable [phone] Allergies Active AllergyReactionsCriticalityNoted DateCommentsCodeineSwelling,Unknown 09/06/2014 Medications MedicationSigDispense QuantityRefillsLast FilledStart DateEnd DateStatus aspirin 81 MG EC tablet Take 81 mg by mouth DailyActive metoprolol succinate XL (Toprol-XL) 50 MG 24 hr tablet Take 50 mg by mouth DailyActive albuterol (2.5 MG/3ML) 0.083% nebulizer solution Indications:Chronic obstructive pulmonary disease, unspecified COPD type (HCC) Take 3 mL by nebulization every 4 (four) hours if needed for wheezing or shortness of breath 75 mL ctive atorvastatin (Lipitor) 40 MG tablet Indications:Hyperlipidemia, unspecified hyperlipidemia typeTake 1 tablet (40 mg) by mouth at bedtime 90 tablet ctive tiZANidine (Zanaflex) 4 MG tablet Indications:Acute right-sided low back pain without sciaticaTAKE 1 TABLET (4 MG) BY MOUTH EVERY 8 HOURS IF NEEDED FOR MUSCLE SPASMS 90 tablet ctive [facility] D3 25 MCG (1000 UT) capsule Take 25 mcg by mouth Daily07/23/2023ctive gabapentin (Neurontin) 300 MG capsule Indications:Acute right-sided low back pain without sciaticaTake 1 capsule (300 mg) by mouth Daily 90 capsule 08/12/2023ctive lisinopril 10 MG tablet Indications:Primary hypertensionTake 1 tablet (10 mg) by mouth in the morning. 90 tablet ctive albuterol HFA 90 mcg/act inhaler Indications:Chronic obstructive pulmonary disease, unspecified COPD type (HCC) Inhale 2 puffs every 4 (four) hours if needed for wheezing or shortness of breath 8 g ctive Active Problems ProblemNoted DateDiagnosed DateCOPD with rimzqzldyjnf08/11/2024 Assessment & Plan (08/12/2023 6:58 PM EDT): [...] will call in oral prednisone, azithromycin. Asked patientto use albuterol as needed. If no improvement, worsening symptoms, will need to go to ED. Nldo, acquired (nasolacrimal duct obstruction), left06/04/2023acryocystitis of left lacrimal sac05/17/2023ry eyes05/17/2023lepharitis of upper and lower eyelids of both eyes05/17/2023enal cyst, left05/14/2023 Assessment & Plan (05/23/2023 3:49 PM EDT): [...] US of left kidney. Urinary incontinence in huolgg1805/13/2023hronic right-sided low back pain without pctdrinf57/25/2024 Assessment & Plan (08/12/2023 7:03 PM EDT): [...] an MRI if conservative measures failed. Tobacco ifvykdpjzt76/02/2024 Assessment & Plan (02/19/2023 1:57 PM EST): [...] Started on Nicotine patches/lozenges. Chronic obstructive pulmonary igbievf2802/19/2023 Assessment & Plan (07/30/2023 2:18 PM EDT): [...] with Dr Condon. Stage 3a chronic kidney lkhqych2302/19/2023 Assessment & Plan (05/14/2023 9:15 AM EDT): CKD 3, renal function stable. Monitor. Assessment & Plan (02/19/2023 1:57 PM EST): Due to HTN. Follows Nephrology. On ACEi - lisinopril Xkjpkdlffdnbxh28/02/2024rimary glhbmqwclobp66/02/2024 Assessment & Plan (08/12/2023 6:59 PM EDT): Well controlled. On Lisinopril 10 mg, Toprol 50 mg. Doing well. C/w same. Assessment & Plan (05/14/2023 9:14 AM EDT): Well controlled. Her lisinopril was decreased to 10 mg last appt. Her Toprol was decreased to 50 mgby cardiology. Too tightly controlled but denies orthostatic [...] up in 2 months. H/O: CVA (cerebrovascular accident)02/19/2023Hospital discharge follow-up 02/19/2023 Assessment & Plan (02/19/2023 1:59 PM EST): [place] [facility], COPD Exacerbation, resp failure with hypoxia and NSTEMI (T2 demand ischemia) She is currently on RA, denies SOB, chest pain. She will finish her steroids tomorrow. Patient has follow up appt with Cardiology and Pulm this month. Reviewed medications changes, hospital records. Doing well overall. Atrophy of ieeccp6810/09/2022Hypertension, renal baguiwt1210/09/2022astroesophageal reflux disease without agidbzvsndo31/25/2023Tobacco abuse09/07/2014 Immunizations ImmunizationAdministration DatesNext DuePPD Test06/22/2022 Family History Medical HistoryRelationNameCommentsHypertensionBrotherNo Known ProblemsFatherNo Known ProblemsMotherHypertensionSisterRelationNameStatusCommentsBrotherFather MotherSisterSon 1AliveSon 2Alive Social History Tobacco UseTypesPacks/DayYears UsedDateSmoking Tobacco: Every DayCigarettesLast attempted to quit: 2Passive Smoke Exposure: CurrentSmokeless Tobacco: Never Tobacco Cessation:Ready to Q uit: No; Counseling Given: Yes Alcohol UseStandard Drinks/WeekCommentsNever0 (1 standard drink = 0.6 oz pure alcohol)B1300 Health LiteracyAnswerDate RecordedHow often do you need to have someone help you when you read instructions, pamphlets, or other written material from your doctor or pharmacy?Patient declines to pjywhif7011/13/2023 Social Connection and Isolation PanelAnswerDate RecordedFrequency of Communication with Friends and FamilyNot on file11/13/2023Frequency of Social Gatherings with Friends and FamilyNot on file11/13/2023ttends Hinduism ServicesNot on file11/13/2023o you belong to any clubs or organizations such as caodaism groups, unions, fraternal or athletic groups, or school groups?Patient czokqrjs05/25/2024ttends Club or Organization MeetingsNot on file11/13/2023re you , , , , never , or living with a partner?Patient cjeempwi83/25/2024UDIT-CAnswerDate RecordedFrequency of Alcohol ConsumptionNot on file11/13/2023Q2: How many drinks containing alcohol do you have on a typical day when you are drinking?Patient /25/2024Frequency of Binge DrinkingNot on file11/13/2023HQ-2AnswerDate RecordedPatient Health Questionnaire-2 Ccqgb635Exercise Vital SignAnswerDate RecordedOn average, how many days per week do you engage in moderate to strenuous exercise (like a brisk walk)?Patient nrgqhuyb08/25/2024On average, how many minutes do you engage in exercise at this level?Patient iasimvwy96/25/2024RAPARE - TransportationAnswerDate RecordedIn the past 12 months, has lack of transportation kept you from medical appointments or from getting medications? Patient izpkgcyq10/25/2024In the past 12 months, has lack of transportation kept you from meetings, work, or from getting things needed for daily living?Patient oadijmpv96/25/2024Housing Stability Vital SignAnswerDate RecordedIn the last 12 months, was there a time when you were not able to pay the mortgage or rent on time?Patient yjpaqmvt95/25/2024Number of Times Moved in the Last YearNot on file 11/13/2023Homeless in the Last YearNot on file11/13/2023CommentsUnknown Sex and Gender InformationValueDate RecordedSex Assigned at BirthNot on file Legal EtnEvlacn60/15/2023 7:17 PM EDTGender IdentityNot on fileSexual OrientationNot on file Last Filed Vital Signs Vital SignReadingTime TakenCommentsBlood Lumeurdn220/80008/12/2023 6:46 PM EDT Fqgsd945308/12/2023 6:46 PM EDT93% N3Yjzejhdfhjy87.9 ??C (98.5 ??F)08/12/2023 6:46 PM EDTRespiratory Rate--Oxygen Ulbsdakono04%02/19/2023 1:54 PM ESTInhaled Oxygen Concentration--Jrurar96.4 kg (153 lb)08/12/2023 6:46 PM OYTXndvhg339.6 cm (5' 4 )08/12/2023 6:46 PM EDTBody Mass Index26.26008/12/2023 6:46 PM EDT Plan of Treatment Not on file Insurance Care Teams Team MemberRelationshipSpecialtyStart DateEnd Date Mikhail Dutta MD PCP - GeneralFamily Medicine09/30/23 Sadaf Hill NP Nurse PractitionerFamiPhoebe Sumter Medical Center09/30/23
[2024-12-15 09:39] LABS: Hematocrit 48.9 % (36.0-48.0); Hemoglobin 16.2 g/dL (12.0-16.0); Immature Granulocytes Abs Auto 0.02 10^3/uL (0.00-0.03); Immature Granulocytes Pct Auto 0.2 % (0.0-0.5); Lymphocytes Absolute Auto 2.2 10^3/uL (1.2-3.8); Mean Corpuscular HGB Conc 33.1 g/dL (29.9-35.2); Mean Corpuscular Hemoglobin 31.2 pg (26.7-34.0); Mean Corpuscular Volume 94.2 fL (81.0-99.0); Platelet Count 206 10^3/uL (150-450); Red Blood Count 5.19 10^6/uL (4.20-5.40); White Blood Count 9.2 10^3/uL (4.0-11.0)
[2024-12-15 09:56] LABS: Glucose Urine UA NEGATIVE (NEGATIVE)
[2024-12-15 11:00] LABS: Total Protein Urine Random <6.0 mg/dL (<=11.9)
[2024-12-15 11:07] LABS: Albumin Level 4.0 g/dL (3.4-5.0); Anion Gap 13.3; Blood Urea Nitrogen 25.0 mg/dL (7.0-18.0); Calcium 9.7 mg/dL (8.5-10.1); Carbon Dioxide 26.6 mmol/L (21.0-32.0); Chloride 105 mmol/L (98-107); Estimated GFR (African America 51 (>=60 mL/min/1.73m^2); Estimated GFR (Non-African Ame 42 (>=60 mL/min/1.73m^2); Glucose 99 mg/dL (74-106); Potassium 4.9 mmol/L (3.5-5.1); Sodium 140 mmol/L (136-145); Uric Acid 6.1 mg/dL (2.6-6.0)
[2024-12-15 11:43] LABS: Cast Seen? NONE SEEN #/LPF (NONE SEEN); Crystals Seen? None Seen #/HPF (None Seen)
== END 2024-12-15 08:26 | disposition home or self-care (01) ==
LOC: LAB 08:30
PROVIDERS: PCP Family Medicine
DX: N18.32 Chronic kidney disease, stage 3b (principal)
CPT/HCPCS: 36415; 80069; 81001; 82306; 82570; 83970; 84156; 84550; 85025